=== PATIENT | male | born 1990 | race American Indian/Alaskan Native ===

== ENCOUNTER 2021-02-21 00:25 | Emergency (ER) | payer MEDICAID, SELFPAY ==
--- NOTE | ~2021-02-21 | US_ITS ---
EXAMINATION: US SCROTUM CLINICAL INFORMATION: Pain, swelling. COMPARISON: None TECHNIQUE: A sonogram of the scrotum was performed assessing harley-scale appearance and color Doppler flow. Spectral Doppler analysis of the arterial and venous flow were performed in the testes bilaterally. FINDINGS: Per technologist report, examination performance is limited due to patient agitation. Scrotal skin thickening is noted. RIGHT: Right testicle measures 3.4 x 1.9 x 2.3 cm, volume 7.5 mL. No focal testicular parenchymal lesions are visualized. Spectral Doppler analysis of the arterial and venous flow is normal in the right testis. Right epididymal head is normal in size. There is a 0.5 cm right epididymal head cyst. No right hydrocele or varicocele is seen. Right epididymal Doppler flow is normal. LEFT: Left testicle measures 3.0 x 1.8 x 2.4 cm, volume 6.9 mL. No focal testicular parenchymal lesions are visualized. Spectral Doppler analysis of the arterial and venous flow is normal in the left testis. Left epididymal head is normal in size. No left hydrocele or varicocele is seen. Left epididymal Doppler flow is normal. US/US scrotum doppler IMPRESSION: No testicular abnormality identified. Scrotal skin thickening is noted.
--- NOTE | ~2021-02-21 | US_ITS ---
EXAMINATION: US SCROTUM CLINICAL INFORMATION: Pain, swelling. COMPARISON: None TECHNIQUE: A sonogram of the scrotum was performed assessing harley-scale appearance and color Doppler flow. Spectral Doppler analysis of the arterial and venous flow were performed in the testes bilaterally. FINDINGS: Per technologist report, examination performance is limited due to patient agitation. Scrotal skin thickening is noted. RIGHT: Right testicle measures 3.4 x 1.9 x 2.3 cm, volume 7.5 mL. No focal testicular parenchymal lesions are visualized. Spectral Doppler analysis of the arterial and venous flow is normal in the right testis. Right epididymal head is normal in size. There is a 0.5 cm right epididymal head cyst. No right hydrocele or varicocele is seen. Right epididymal Doppler flow is normal. LEFT: Left testicle measures 3.0 x 1.8 x 2.4 cm, volume 6.9 mL. No focal testicular parenchymal lesions are visualized. Spectral Doppler analysis of the arterial and venous flow is normal in the left testis. Left epididymal head is normal in size. No left hydrocele or varicocele is seen. Left epididymal Doppler flow is normal. US/US scrotum IMPRESSION: No testicular abnormality identified. Scrotal skin thickening is noted.
[2021-02-21 00:42] VITALS: BP 155/97; PULSE 102; RESP 24; TEMP 37.3; O2SAT 99; BMI 27.4
--- NOTE | 2021-02-21 01:28 | ED_ITS ---
HPI - Alcohol General Chief Complaint: ETOH/Substance Use Stated Complaint: Multiple complaints Time Seen by Provider: 02/21/21 01:27 Source: patient Mode of arrival: ambulatory History of Present Illness HPI narrative: Who walked in and admits to the substance use, and reportedly is seeking detox after not obtaining drugs earlier in the day. But then states that he is been up for 4 days. Patient reports severe testicular pain and is c rying, he states that his scrotum started looking at approximately 2 days ago and just continued to worsen. He denies any injection or noting any infected hair follicle prior to the onset of the swelling and pain. Related Data Allergies Allergy/AdvReac Type Severity Reaction Status Date / Time No Known Allergies Allergy Unverified 07/05/20 15:53 [No Known Allergies*] Review of Systems Review of Systems: Pertinent positives and negatives as stated in HPI 10 point review of systems is otherwise negative. PMFSH Past Medical History Source: nursing notes reviewed Medical History Drug abuse Drug abuse and dependence Social History Social History Alcohol intake: unknown Smoking Status: Unknown if ever smoked Use of substances other than those prescribed or required for medical reasons: Yes Substance Use Type: Unknown Substance Use Type Other:: just stating he used tonight Advance Directives: No Advance Directives Information Provided: No Physical Exam Vital Signs: Vital Signs: Last Vital Signs Temp 99.2 F 02/21/21 00:42 Pulse 84 02/21/21 06:00 Resp 16 02/21/21 06:00 BP 124/79 02/21/21 06:00 Pulse Ox 100 02/21/21 06:00 Body Mass Index 27.4 VITAL SIGNS: Reviewed. GENERAL: Well developed, well nourished, in no acute distress. HEAD: Normocephalic/atraumatic EYES: PERRLA, EOMI OROPHARYNX: no oral lesions noted, posterior pharynx clear NECK: Supple, no adenopathy LUNGS: Normal breath sounds. No adventitious sounds or accessory muscle use. SpO2<97> CARDIOVASCULAR: Regular rate and rhythm without noted murmurs ABDOMEN: Soft, non-tender, non-distended with bowel sounds. : Scrotum noted to be swollen with erythema at the ventral aspect and noted weeping with tactile coolness on palpation EXTREMITIES: No cyanosis, clubbing, but there is noted track tan on bilateral upper extremities with a noted swollen left hand without fluctuance appreciated, capillary refill less than 3 seconds and otherwise neurovascularly intact SKIN: Inspection of the skin reveals no rashes NEUROLOGIC: Alert and oriented x 4. PSYCH: Labile mood, tearful Course Course Course Narrative: 30-year-old male with history and clinical presentation consistent with drug dependence and clearly IV drug use with left hand suspicious for infection and unclear what is going on with the scrotum. Patient is very combative, verbally abusive to the nursing staff, and difficult to provide medical attention. However, on obtaining lab work as well as initial vital signs evidence consistent with severe sepsis (however the creatinine, bilirubin levels are chronically stable and it is felt this has nothing to do with suspected underlying infection). Patient is receiving antibiotics, IV fluids, and delay in receiving entire fluids as well as antibiotics secondary to venous access and then later secondary to patient agitation over subsequent evaluations with scrotal Doppler. Review of scrotal ultrasound negative for evidence testicular torsion, hydrocele or varicocele and simply demonstrates scrotal skin thickening. This case was discussed with the inpatient hospitalist team for admission secondary to sepsis and scrotal cellulitis. MDM - Alcohol Lab Data Result diagrams: 02/21/21 03:35 02/21/21 03:35 Labs: Lab Results 02/21/21 02/21/21 02/21/21 Range/Units 03:35 03:35 03:35 WBC 17.8 H (4.8-10.8) X10*3/uL RBC 5.00 (4.60-5.80) X10*6/uL Hgb 13.0 L (14.0-18.0) g/dl Hct 39.2 L (42-52) % MCV 78.4 L (80-98) fL MCH 26.0 L (27.0-33.0) pg MCHC 33.2 (31.0-36.0) g/dl RDW 18.7 H (11.0-16.0) % Plt Count 126 L (160-400) X10*3/uL MPV Not Reportable Immature Gran % (Auto) 1.3 H (0.0-0.4) % Neut % (Auto) 68.3 (45-73) % Lymph % (Auto) 21.6 (20-40) % [place] % (Auto) 8.5 (2-11) % Eos % (Auto) 0.1 (0-4) % Baso % (Auto) 0.2 (0-2) % Lymph # (Auto) 3.9 (1.2-4.9) X10*3/uL [place] # (Auto) 1.5 H (0.1-1.2) X10*3/uL Eos # (Auto) 0.0 (0.0-0.4) X10*3/uL Baso # (Auto) 0.0 (0.0-0.2) X10*3/uL Abs Immat Gran (auto) 0.24 H (0.00-0.03) X10*3/uL Absolute Neuts (auto) 12.2 H (2.0-8.3) X10*3/uL Absolute Nucleated RBC 0.000 (0.0-0.012) X10*3/uL Nucleated RBC % (auto) 0.0 (0.0-0.2) /100WBC Smear Tech's Comments VERIFIED Sodium 131 L (135-145) mmol/L Potassium 4.2 (3.3-5.1) mmol/L Chloride 101 (96-108) mmol/L Carbon Dioxide 18 L (22-29) mmol/L Anion Gap 16 (12-20) BUN 47 H (9-16) mg/dL Creatinine 1.85 H (0.5-1.4) mg/dL Estim Creat Clear Calc 48.6 Estimated GFR 43 Random Glucose 97 (60-115) mg/dL Lactic Acid (0.5-2.0) mmol/L Calcium 9.1 (8.4-10.2) mg/dL Total Bilirubin 4.0 H (0.0-1.0) mg/dL AST 291 H (5-37) U/L ALT 133 H (0-40) U/L Alkaline Phosphatase 207 H (39-117) U/L Total Protein 6.1 L (6.5-8.0) g/dL Albumin 3.2 L (3.5-5.0) g/dL Ethyl Alcohol < 10 mg/dL 02/21/21 Range/Units 04:52 WBC (4.8-10.8) X10*3/uL RBC (4.60-5.80) X10*6/uL Hgb (14.0-18.0) g/dl Hct (42-52) % MCV (80-98) fL MCH (27.0-33.0) pg MCHC (31.0-36.0) g/dl RDW (11.0-16.0) % Plt Count (160-400) X10*3/uL MPV Immature Gran % (Auto) (0.0-0.4) % Neut % (Auto) (45-73) % Lymph % (Auto) (20-40) % [place] % (Auto) (2-11) % Eos % (Auto) (0-4) % Baso % (Auto) (0-2) % Lymph # (Auto) (1.2-4.9) X10*3/uL [place] # (Auto) (0.1-1.2) X10*3/uL Eos # (Auto) (0.0-0.4) X10*3/uL Baso # (Auto) (0.0-0.2) X10*3/uL Abs Immat Gran (auto) (0.00-0.03) X10*3/uL Absolute Neuts (auto) (2.0-8.3) X10*3/uL Absolute Nucleated RBC (0.0-0.012) X10*3/uL Nucleated RBC % (auto) (0.0-0.2) /100WBC Smear Tech's Comments Sodium (135-145) mmol/L Potassium (3.3-5.1) mmol/L Chloride (96-108) mmol/L Carbon Dioxide (22-29) mmol/L Anion Gap (12-20) BUN (9-16) mg/dL Creatinine (0.5-1.4) mg/dL Estim Creat Clear Calc Estimated GFR Random Glucose (60-115) mg/dL Lactic Acid 2.3 H* (0.5-2.0) mmol/L Calcium (8.4-10.2) mg/dL Total Bilirubin (0.0-1.0) mg/dL AST (5-37) U/L ALT (0-40) U/L Alkaline Phosphatase (39-117) U/L Total Protein (6.5-8.0) g/dL Albumin (3.5-5.0) g/dL Ethyl Alcohol mg/dL Discharge Plan Discharge Clinical Impression: Sepsis, Cellulitis, scrotum Patient Disposition: Admitted As Inpatient
[2021-02-21 02:00] VITALS: PULSE 91; RESP 12
--- NOTE | 2021-02-21 02:40 | PC.NURSE ---
provider remains in agreement to defer labs until patient is in behavioral control for provider safety.
--- NOTE | 2021-02-21 03:41 | PC.NURSE ---
able to obtain blood work from patient with assistance from wilton thompson. patient placed on capnography. patient is alert but under the influence of drug. patient stating he used tonight, will not disclose what he used. yelling out, rocking on the stretcher. awaiting lab results.
[2021-02-21 03:44] LABS: Basophils Percent Auto 0.2 % (0-2); Eosinophils Percent Auto 0.1 % (0-4); Hematocrit 39.2 % (42-52); Imm Gran Abs Auto 0.24 X10*3/uL (0.00-0.03); Imm Gran Pct Auto 1.3 % (0.0-0.4); Lymphocytes Absolute Auto 3.9 X10*3/uL (1.2-4.9); Lymphocytes Percent Auto 21.6 % (20-40); MANUAL DIFF FLAG SCAN; Mean Corpuscular HGB Conc 33.2 g/dl (31.0-36.0); Mean Corpuscular Volume 78.4 fL (80-98); Monocytes Absolute Auto 1.5 X10*3/uL (0.1-1.2); Monocytes Percent Auto 8.5 % (2-11); Neutrophils Absolute Auto 12.2 X10*3/uL (2.0-8.3); Neutrophils Percent Auto 68.3 % (45-73); PLT ABN DIST 1; Platelet Count 126 X10*3/uL (160-400); Red Cell Distribution Width 18.7 % (11.0-16.0); SCAN SMEAR FLAG 1; White Blood Count 17.8 X10*3/uL (4.8-10.8)
[2021-02-21 03:47] LABS: SLIDE REVIEW VERIFIED
[2021-02-21 03:58] LABS: Ethanol < 10 mg/dL
[2021-02-21 04:02] LABS: Alanine Aminotransferase 133 U/L (0-40); Albumin Level 3.2 g/dL (3.5-5.0); Alkaline Phosphatase 207 U/L (39-117); Anion Gap 16 (12-20); Aspartate Amino Transferase 291 U/L (5-37); Blood Urea Nitrogen 47 mg/dL (9-16); Calcium 9.1 mg/dL (8.4-10.2); Carbon Dioxide 18 mmol/L (22-29); Chloride 101 mmol/L (96-108); Creatinine Clr Calc Pharmacy 48.6; Estimated Glomerular Filt Rate 43; Glucose Random 97 mg/dL (60-115); Potassium 4.2 mmol/L (3.3-5.1); Sodium 131 mmol/L (135-145); Total Protein 6.1 g/dL (6.5-8.0)
[2021-02-21 04:56] VITALS: BP 123/81; PULSE 96; RESP 18; O2SAT 97
--- NOTE | 2021-02-21 05:12 | PC.NURSE ---
after multiple attempts for iv access with md attempting ultrasound guided. access was obtained. labs were able to be obtained after iv access. labs sent. awaiting results. patient continues to yell out and roll around on the stretcher. plan for antibotics and iv fluids.
[2021-02-21 05:20] LABS: Lactic Acid 2.3 mmol/L (0.5-2.0)
[2021-02-21] MEDS: 0.9 % Sodium Chloride 2,041.17 ML 2041.17 ML IVCONT (05:25)
[2021-02-21] MEDS: Piperacillin Sodium/Tazobactam 3.375 GM in 0.9 % Sodium Chloride 50 ML IV (05:25)
--- NOTE | 2021-02-21 05:36 | PC.NURSE ---
SEPSIS FLUIDS RUNNING. PATIENT FALLING ASLEEP, ANTIBIOTIC RUNNING. BREATHING IS EVEN AND UNLABORED SKIN IS P,D,W. PLAN FOR POSSIBLE ADMISSION IF PATIENT IS AGREEABLE TO PLAN OF CARE. VITALS REMAIN STABLE. PATIENT HAS BEEN UNWILLING TO GIVE TEMPERATURE. WAS PREVIOUS SPITTING AT STAFF TRYING TO HIT THEM DURING LAB AND IV ATTEMPTS. SECURITY WAS AT BEDSIDE TO ASSIST DUE TO PATIENTS BEHAVIORS. PATIENT HAS SINCE SETTLED DOWN AND IS CURRENTLY AGREEABLE TO SOME CARE.
--- NOTE | 2021-02-21 05:44 | PC.NURSE ---
PROVIDER AND THIS NURSE AT BEDSIDE ABLE TO BETTER EVALUATE PATIENT AFTER HE HAS CALMED DOWN SOME. PATIENT ALLOWING MD TO EVALUATE TESTICLES. PATIENT HAVING VERY SWOLLEN GENITAL REGION, COLD TO THE TOUCH, AND OOZING SEROUS FLUID FROM TESTICLES. CONCERN FOR TORSION AND NECROSIS OF THE TESTICLES.
[2021-02-21] MEDS: HYDROmorphone HCl 0.5 MG/0.5 ML SYRINGE IVPUSH (05:56)
[2021-02-21 06:00] VITALS: BP 124/79; PULSE 84; RESP 16; O2SAT 100
--- NOTE | 2021-02-21 06:09 | PC.NURSE ---
SECUIRTY AND ULTRASOUND AT BEDSIDE FOR IMAGING
[2021-02-21 07:00] LABS: Reflex Lactate? Lactic Acid Added
[2021-02-21 07:45] LABS: Glucose Urine UA NEG (NEG); Leukocyte Esterase Urine NEG (NEG); Nitrite Urine NEG (NEG); Specific Gravity - Urine 1.025 (1.005-1.025); Urine Blood 2+ (NEG); Urine Ketones NEG (NEG); Urine Protein TRACE MG/DL (NEG-TRACE)
[2021-02-21 07:47] LABS: Appearance Urine CLEAR; Color Urine YELLOW
[2021-02-21 08:05] LABS: Amphetamine Screen Urine Not Detected (Not Detect); Barbiturates, Urine Not Detected (Not Detect); Benzodiazepines Screen Urine Not Detected (Not Detect); Cannabinoid Screen Urine POSITIVE (Not Detect); Cocaine Screen Urine POSITIVE (Not Detect); Opiate Screen Urine POSITIVE (Not Detect); Phencyclidine Screen Urine Not Detected (Not Detect)
[2021-02-21 08:09] LABS: WBC Urine 0-2 /HPF (0-4)
[2021-02-21] MEDS: vancomycin HCL 1,250 MG in 0.9 % Sodium Chloride 250 ML 166.67 MG IV (08:43)
--- NOTE | 2021-02-21 09:28 | PC.NURSE ---
[facility]abke to draw lactate, phlembotomy called. they were unable to obtain it as well.
--- NOTE | 2021-02-21 10:02 | PC.NURSE ---
patient very combatitive. not able to re-direct. states that he will not have cat scan and wants to leave now.
--- NOTE | 2021-02-21 10:02 | PC.NURSE ---
several staff and security at bedside. this nurse in a calm manner attemptes to educate patient on importance of medication, and that the patient needs these meds. patient swearing at this nurse and staff.
--- NOTE | 2021-02-21 10:03 | PC.NURSE ---
this nurse attempted to calm patient down, let him know that after the cat scan was the last imaging we needed for now. patient yelling and swearing at this nurse and staff. unable to re-direct patient.
== END 2021-02-21 10:04 | disposition left against medical advice (07) ==
PROVIDERS: Emergency Provider Student in an Organized Health Care Education/Training Program
DX: N49.2 Inflammatory disorders of scrotum (principal); A41.9 Sepsis, unspecified organism; N50.812 Left testicular pain; N50.811 Right testicular pain; F19.10 Other psychoactive substance abuse, uncomplicated
CPT/HCPCS: 36415; 76870; 80053; 80307; 80320; 81001; 83605; 85025; 87040; 93975; 96361; 96365; 96375; 99285; J1170; J2543; J3370

== ENCOUNTER 2021-04-15 11:43 | Inpatient (IN) | payer MEDICAID, SELFPAY ==
--- NOTE | ~2021-04-15 | US_ITS ---
EXAMINATION: US SCROTUM CLINICAL INFORMATION: Scrotal swelling. Evaluate for torsion or infection. COMPARISON: Previous scrotal ultrasound 02/21/2021 TECHNIQUE: A sonogram of the scrotum was performed assessing harley-scale appearance and color Doppler flow. Spectral Doppler analysis of the arterial and venous flow were performed in the testes bilaterally. FINDINGS: RIGHT: Right testicle measures 3.5 x 2.9 x 2.2 cm, volume 11.7 mL. No focal testicular parenchymal lesions are visualized. Spectral Doppler analysis of the arterial and venous flow is normal in the right testis. Right epididymal head is normal in size. There is a 7 mm right epididymal head cyst. No right hydrocele or varicocele is seen. Right epididymal Doppler flow is normal. There is marked scrotal swelling LEFT: Left testicle measures 3.2 x 2.4 x 2.1 cm, volume 8.4 mL. No focal testicular parenchymal lesions are visualized. Spectral Doppler analysis of the arterial and venous flow is normal in the left testis. Left epididymal head is normal in size. No left hydrocele or varicocele is seen. Left epididymal Doppler flow is normal. There is marked scrotal swelling. US/US scrotum IMPRESSION: No evidence of torsion, orchitis or epididymitis. No hydrocele. There is marked scrotal skin swelling suggestive of severe cellulitis. This is unchanged from February 2021 exam.
--- NOTE | ~2021-04-15 | US_ITS ---
EXAMINATION: US ABDOMEN LIMITED/RIGHT UPPER QUADRANT and Doppler CLINICAL INFORMATION: Rule out Budd-Chiari. COMPARISON: Previous CT of the abdomen and pelvis from yesterday and limited abdominal ultrasound May 2020 TECHNIQUE: Real-time grayscale imaging of the right upper quadrant. Color Doppler evaluation of the liver vasculature including waveform spectral analysis. FINDINGS: PANCREAS: Not well visualized due to bowel gas LIVER: The liver is enlarged. The liver contour is normal. Parenchymal echogenicity is normal. No focal hepatic lesion. There is no intrahepatic biliary duct dilatation seen. GALLBLADDER: There is ring down artifact suggestive of adenomyomatosis of the gallbladder wall. No gallstones are seen. The gallbladder is normal in size. COMMON BILE DUCT: Normal in caliber measuring 0.3 cm in diameter. RIGHT KIDNEY: There is increased renal cortical echogenicity. The kidney is normal in size, shape and contour. No focal lesion, stone or hydronephrosis. The right kidney measures 11.2 cm. The spleen is enlarged and measures 14.3 cm in length. There is a small amount of ascites. The IVC is patent. The hepatic veins are patent. No evidence of Budd-Chiari is seen. The main, right left portal veins are patent with appropriate hepatopedal flow. The splenic vein is patent. US/US abdomen complete IMPRESSION: No evidence of Budd-Chiari. Enlarged liver. Probable adenomyomatosis of the gallbladder wall. Small amount of ascites. Enlarged spleen. Echogenic right kidney suggestive of medical renal disease. Limited visualization of the pancreas.
--- NOTE | ~2021-04-15 | CT_ITS ---
EXAMINATION: CT ABDOMEN AND PELVIS WITH CONTRAST CLINICAL INFORMATION: Scrotal swelling and edema. Evaluate for venous obstruction. COMPARISON: None TECHNIQUE: Multidetector volumetric images were obtained from the superior aspect of the liver through the pubic symphysis following administration 85 mL of Omnipaque 350 intravenous contrast. Sagittal and coronal reformatted images were obtained on the technologist's workstation. Oral contrast: Yes This CT examination was performed using dose optimization techniques as appropriate, variously including the following: *Automated exposure control *Adjustment of mA and/or kV according to patient size (this includes techniques or standardized protocols for targeted exams where dose is matched to indication/reason for exam; i.e. extremities or head) *Use of iterative reconstruction technique DLP: 544 mGy-cm FINDINGS: LUNG BASES: There are small bilateral pleural effusions. There is bilateral lower lobe subsegmental atelectasis. The heart is enlarged. There may be a prosthetic tricuspid valve. LIVER, GALLBLADDER, AND BILIARY TREE: The liver is enlarged. There is heterogeneous enhancement of the liver. The suprahepatic IVC appears prominent. It is uncertain whether heterogeneous enhancement of the liver could be due to elevated right heart pressures possibly of Budd-Chiari. The gallbladder is contracted. There is no biliary duct dilatation. There is a small amount of ascites adjacent to the liver and gallbladder. PANCREAS: Unremarkable. SPLEEN: Unremarkable. ADRENAL GLANDS: Unremarkable. KIDNEYS AND URETERS: The kidneys are normal in size, shape, and attenuation. No hydronephrosis, hydroureter, or calculi seen. No perinephric stranding. BLADDER: Unremarkable. GASTROINTESTINAL TRACT: The small and large bowel are unremarkable. The appendix has probably been removed. ABDOMINAL WALL: Fall LYMPH NODES: There is shotty bilateral inguinal lymphadenopathy. VASCULAR: The suprahepatic IVC is prominent. Vascular structures are otherwise unremarkable. The IVC and iliac veins appear patent. No evidence of venous obstruction in the pelvis is seen. PELVIC VISCERA: The prostate gland does not appear enlarged. There is a small amount of ascites in the pelvis. There is diffuse edema of the soft tissues of the pelvis. OSSEOUS STRUCTURES: Unremarkable. CT/CT abdomen pelvis w con IMPRESSION: No evidence of venous obstruction the pelvis. Enlarged heart. Enlarged liver with heterogeneous enhancement. Prominent suprahepatic IVC. Possible right heart compromise and heterogeneous liver perfusion related to that or Budd-Chiari should be considered. Small amount of ascites around the liver, gallbladder and pelvis. Diffuse subcutaneous edema in the pelvis. Shotty bilateral inguinal lymphadenopathy.
--- NOTE | ~2021-04-15 | US_ITS ---
EXAMINATION: US SCROTUM CLINICAL INFORMATION: Scrotal swelling. Evaluate for torsion or infection. COMPARISON: Previous scrotal ultrasound 02/21/2021 TECHNIQUE: A sonogram of the scrotum was performed assessing harley-scale appearance and color Doppler flow. Spectral Doppler analysis of the arterial and venous flow were performed in the testes bilaterally. FINDINGS: RIGHT: Right testicle measures 3.5 x 2.9 x 2.2 cm, volume 11.7 mL. No focal testicular parenchymal lesions are visualized. Spectral Doppler analysis of the arterial and venous flow is normal in the right testis. Right epididymal head is normal in size. There is a 7 mm right epididymal head cyst. No right hydrocele or varicocele is seen. Right epididymal Doppler flow is normal. There is marked scrotal swelling LEFT: Left testicle measures 3.2 x 2.4 x 2.1 cm, volume 8.4 mL. No focal testicular parenchymal lesions are visualized. Spectral Doppler analysis of the arterial and venous flow is normal in the left testis. Left epididymal head is normal in size. No left hydrocele or varicocele is seen. Left epididymal Doppler flow is normal. There is marked scrotal swelling. US/US scrotum doppler IMPRESSION: No evidence of torsion, orchitis or epididymitis. No hydrocele. There is marked scrotal skin swelling suggestive of severe cellulitis. This is unchanged from February 2021 exam.
[2021-04-15 11:46] VITALS: BP 128/83
[2021-04-15 11:48] VITALS: BP 125/73; PULSE 104; RESP 16; TEMP 36.7; O2SAT 97; BMI 23.3
--- NOTE | 2021-04-15 12:39 | ED_ITS ---
HPI - Male Genitourinary General Chief complaint: Urogenital-Male Stated complaint: SCOTAL SWELLING,UNK IF INJURED Time Seen by Provider: 04/15/21 12:28 Source: patient Mode of arrival: ambulatory Limitations: no limitations History of Present Illness HPI Narrative: Patient presents to ED for bilateral scrotal swelling and penile swelling for 2 days. Patient denies any injury to scrotum, penile discharge, penile lesions, abdominal pain, fever, or chills. He denies injecting drugs to scrotum. Patient was seen here last month for similar issue was done with scrotal cellulitis, but signed against medical advice. Patient admits to being an IV drug user. Related Data Home Medications Medication Instructions Recorded Confirmed rivaroxaban [Xarelto] 1 tab PO QPM 04/15/21 04/15/21 Allergies Allergy/AdvReac Type Severity Reaction Status Date / Time No Known Allergies Allergy Unverified 07/05/20 15:53 [No Known Allergies*] Review of Systems Review of Systems: Yes all other systems are reviewed and are negative Constitutional: Constitutional: Reports as per HPI and Reports no additional constitutional complaints Eyes: Eyes: Reports as per HPI and Reports no additional eye complaints ENT: Reports system reviewed and no additional complaints, except as documented and Reports as per HPI Cardiovascular: Cardiovascular: Reports as per HPI and Reports no additional cardiovascular complaints Respiratory: Respiratory: Reports as per HPI and Reports no additional respiratory complaints Gastrointestinal: Gastrointestinal: Reports as per HPI and Reports no additional gastrointestinal complaints Genitourinary: Genitourinary: Reports no additional male genitourinary complaints, Reports as per HPI and Reports scrotal swelling Comments: penile swelling Musculoskeletal: Musculoskeletal: Reports no additional musculoskeletal complaints and Reports as per HPI Neurologic: Reports system reviewed and no additional complaints, except as documented and Reports as per HPI Psychiatric: Psychiatric: Reports no additional psychiatric complaints and Reports as per HPI [facility] Past Medical History Medical History Drug abuse Drug abuse and dependence Endocarditis HCV (hepatitis C virus) Pulmonary embolism Surgical History History of tricuspid valve replacement with bioprosthetic valve Social History Social History Alcohol intake: unknown Substance Use Type: Unknown Advance Directives: No Advance Directives Information Provided: No service: No Current occupational status: unemployed Physical Exam Vital Signs: Vital Signs: Last Vital Signs Temp 97.8 F 04/15/21 20:05 Pulse 86 04/15/21 20:05 Resp 18 04/15/21 20:05 BP 106/70 04/15/21 20:05 Pulse Ox 98 04/15/21 20:05 Body Mass Index 23.3 Const: General: cooperative, healthy appearing, comfortable, no acute distress, well developed, alert, awake and Physically active Orientation/consciousness: patient oriented x3 HENMT: Head: Yes normal to inspection, Yes No palpable skull fracture present, Yes normocephalic and Yes atraumatic Eyes: General: appearance normal, both eyes and all related structures Neck: Neck: Yes normal visual inspection, Yes full ROM, Yes no lymp hadenopathy, Yes no meningeal signs, Yes trachea midline, Yes supple and No tender Chest: Chest palpation & inspection: normal inspection of the chest and normal palpation of entire chest wall Resp: Effort & Inspection: normal respiratory effort and able to speak in complete sentences Auscultation: clear to auscultation bilaterally Cardio: Jugular venous distension: no JVD Heart sounds: S1 normal heart sound present and S2 normal heart sound present GI: Inspection: Yes normal to inspection and No abdominal wall ecchymosis Palpation (GI): Soft to palpation, not firm, nontender, no guarding and not rigid : Other: negative for penile discharge or penile on lesions. Penis is swollen as well scrotum bilaterally and warm.. General: No CVA tenderness and Yes no CVA tenderness Penis: edematous Scrotum: edematous and scrotal swelling Back/Spine/Pelvis: Back: no CVA tenderness, No CVA tenderness and No back tenderness Skin: General skin exam: no rashes or lesions noted and elasticity normal Neuro: General: patient oriented x3, gait normal, no meningeal signs and CN's II-XI intact bilaterally Cranial nerves: Yes CN's II-XII intact bilaterally Extrem: General: Yes normal to inspection and Yes full ROM Psych: Appearance: grossly normal, well kempt and not disheveled Course Course Course Narrative: Will do labs to check for liver enzyme and kidney function. Also signed for scrotal ultrasound. CBC ordered Reevaluation(s) Reevaluation #1: patient has mild elevated white blood cell count. Ultrasound shows cellulitis but negative for abscess, hernia, orchitis, or epididymitis. Will start IV antibiotics possible admission. Time: 15:11 Reevaluation #2: patient evaluated by Dr. Snowden the hospitalist for admission. Time: 15:45 MDM - Male Genitourinary MDM Narrative Medical decision making narrative: scrotal cellulitis Lab Data Result diagrams: 04/15/21 13:10 04/15/21 13:10 Labs: Lab Results 04/15/21 04/15/21 04/15/21 Range/Units 13:10 13:10 15:55 WBC 8.7 (4.8-10.8) X10*3/uL RBC 4.53 L (4.60-5.80) X10*6/uL Hgb 11.1 L (14.0-18.0) g/dl Hct 36.2 L (42-52) % MCV 79.9 L (80-98) fL MCH 24.5 L (27.0-33.0) pg MCHC 30.7 L (31.0-36.0) g/dl RDW 19.0 H (11.0-16.0) % Plt Count 213 D (160-400) X10*3/uL MPV 9.9 (9.4-12.4) fL Immature Gran % (Auto) 0.8 H (0.0-0.4) % Neut % (Auto) 58.5 (45-73) % Lymph % (Auto) 27.9 (20-40) % [place] % (Auto) 10.1 (2-11) % Eos % (Auto) 2.2 (0-4) % Baso % (Auto) 0.5 (0-2) % Lymph # (Auto) 2.4 (1.2-4.9) X10*3/uL [place] # (Auto) 0.9 (0.1-1.2) X10*3/uL Eos # (Auto) 0.2 (0.0-0.4) X10*3/uL Baso # (Auto) 0.0 (0.0-0.2) X10*3/uL Abs Immat Gran (auto) 0.07 H (0.00-0.03) X10*3/uL Absolute Neuts (auto) 5.1 (2.0-8.3) X10*3/uL Absolute Nucleated RBC 0.000 (0.0-0.012) X10*3/uL Nucleated RBC % (auto) 0.0 (0.0-0.2) /100WBC Sodium 140 (135-145) mmol/L Potassium 3.7 (3.3-5.1) mmol/L Chloride 109 H (96-108) mmol/L Carbon Dioxide 25 (22-29) mmol/L Anion Gap 10 L (12-20) BUN 9 D (9-16) mg/dL Creatinine 0.76 (0.5-1.4) mg/dL Estim Creat Clear Calc 125.9 Estimated GFR > 60 Random Glucose 122 H (60-115) mg/dL Lactic Acid 1.1 (0.5-2.0) mmol/L Calcium 8.6 (8.4-10.2) mg/dL Total Bilirubin 0.8 (0.0-1.0) mg/dL Direct Bilirubin 0.7 H (0.0-0.5) mg/dL AST 27 D (5-37) U/L ALT 17 (0-40) U/L Alkaline Phosphatase 165 H D (39-117) U/L Total Protein 6.0 L (6.5-8.0) g/dL Albumin 2.9 L (3.5-5.0) g/dL Urine Color Urine Appearance Urine pH (5.0-8.0) Ur Specific [place] (1.005-1.025) Urine Protein (NEG-TRACE) MG/DL Urine Glucose (UA) (NEG) MG/DL Urine Ketones (NEG) MG/DL Urine Blood (NEG) Urine Nitrite (NEG) Ur Leukocyte Esterase (NEG) Urine RBC (0) /HPF Urine WBC (0-4) /HPF Ur Squamous Epith Cells /LPF Urine Bacteria /LPF Urine Opiates Screen (Not Detect) Ur Barbiturates Screen (Not Detect) Ur Phencyclidine Scrn (Not Detect) Ur Amphetamines Screen (Not Detect) U Benzodiazepines Scrn (Not Detect) Urine Cocaine Screen (Not Detect) U Marijuana (THC) Screen (Not Detect) COVID-19 ([facility]) (Negative) COVID-19 Clin Com 04/15/21 04/15/2104/15/21 Range/Units 16:22 16:55 16:55 WBC (4.8-10.8) X10*3/uL RBC (4.60-5.80) X10*6/uL Hgb (14.0-18.0) g/dl Hct (42-52) % MCV (80-98) fL MCH (27.0-33.0) pg MCHC (31.0-36.0) g/dl RDW (11.0-16.0) % Plt Count (160-400) X10*3/uL MPV (9.4-12.4) fL Immature Gran % (Auto) (0.0-0.4) % Neut % (Auto) (45-73) % Lymph % (Auto) (20-40) % [place] % (Auto) (2-11) % Eos % (Auto) (0-4) % Baso % (Auto) (0-2) % Lymph # (Auto) (1.2-4.9) X10*3/uL [place] # (Auto) (0.1-1.2) X10*3/uL Eos # (Auto) (0.0-0.4) X10*3/uL Baso # (Auto) (0.0-0.2) X10*3/uL Abs Immat Gran (auto) (0.00-0.03) X10*3/uL Absolute Neuts (auto) (2.0-8.3) X10*3/uL Absolute Nucleated RBC (0.0-0.012) X10*3/uL Nucleated RBC % (auto) (0.0-0.2) /100WBC Sodium (135-145) mmol/L Potassium (3.3-5.1) mmol/L Chloride (96-108) mmol/L Carbon Dioxide (22-29) mmol/L Anion Gap (12-20) BUN (9-16) mg/dL Creatinine (0.5-1.4) mg/dL Estim Creat Clear Calc Estimated GFR Random Glucose (60-115) mg/dL Lactic Acid (0.5-2.0) mmol/L Calcium (8.4-10.2) mg/dL Total Bilirubin (0.0-1.0) mg/dL Direct Bilirubin (0.0-0.5) mg/dL AST (5-37) U/L ALT (0-40) U/L Alkaline Phosphatase (39-117) U/L Total Protein (6.5-8.0) g/dL Albumin (3.5-5.0) g/dL Urine Color YELLOW Urine Appearance CLEAR Urine pH 7.5 (5.0-8.0) Ur Specific [place] 1.010 (1.005-1.025) Urine Protein TRACE (NEG-TRACE) MG/DL Urine Glucose (UA) NEG (NEG) MG/DL Urine Ketones NEG (NEG) MG/DL Urine Blood TRACE (NEG) Urine Nitrite NEG (NEG) Ur Leukocyte Esterase NEG (NEG) Urine RBC 10-14 H (0) /HPF Urine WBC 0 (0-4) /HPF Ur Squamous Epith Cells NONE /LPF Urine Bacteria NONE /LPF Urine Opiates Screen POSITIVE H (Not Detect) Ur Barbiturates Screen Not Detected (Not Detect) Ur Phencyclidine Scrn Not Detected (Not Detect) Ur Amphetamines Screen Not Detected (Not Detect) U Benzodiazepines Scrn Not Detected (Not Detect) Urine Cocaine Screen POSITIVE H (Not Detect) U Marijuana (THC) Screen POSITIVE H (Not Detect) COVID-19 ([facility]) Negative (Negative) COVID-19 Clin Com See Note Discharge Plan Discharge Clinical Impression: Cellulitis, scrotum Patient Disposition: Admitted As Inpatient Interventions: Admission Worksheet (ED) Last Done: 04/15/21 19:49 Discharge Date/Time: 04/15/21 19:50
[2021-04-15 13:18] LABS: MANUAL DIFF FLAG NO
--- NOTE | 2021-04-15 13:19 | PC.NURSE ---
IV inserted and labs obtained.
[2021-04-15 13:21] LABS: Basophils Percent Auto 0.5 % (0-2); Eosinophils Absolute Auto 0.2 X10*3/uL (0.0-0.4); Eosinophils Percent Auto 2.2 % (0-4); Hematocrit 36.2 % (42-52); Hemoglobin 11.1 g/dl (14.0-18.0); Imm Gran Abs Auto 0.07 X10*3/uL (0.00-0.03); Imm Gran Pct Auto 0.8 % (0.0-0.4); Lymphocytes Absolute Auto 2.4 X10*3/uL (1.2-4.9); Lymphocytes Percent Auto 27.9 % (20-40); Mean Corpuscular HGB Conc 30.7 g/dl (31.0-36.0); Mean Corpuscular Hemoglobin 24.5 pg (27.0-33.0); Mean Corpuscular Volume 79.9 fL (80-98); Mean Platelet Volume 9.9 fL (9.4-12.4); Monocytes Absolute Auto 0.9 X10*3/uL (0.1-1.2); Monocytes Percent Auto 10.1 % (2-11); Neutrophils Absolute Auto 5.1 X10*3/uL (2.0-8.3); Neutrophils Percent Auto 58.5 % (45-73); Platelet Count 213 X10*3/uL (160-400); Red Blood Count 4.53 X10*6/uL (4.60-5.80); White Blood Count 8.7 X10*3/uL (4.8-10.8)
[2021-04-15 13:54] LABS: Alanine Aminotransferase 17 U/L (0-40); Albumin Level 2.9 g/dL (3.5-5.0); Alkaline Phosphatase 165 U/L (39-117); Anion Gap 10 (12-20); Aspartate Amino Transferase 27 U/L (5-37); Bilirubin Direct 0.7 mg/dL (0.0-0.5); Bilirubin Total 0.8 mg/dL (0.0-1.0); Blood Urea Nitrogen 9 mg/dL (9-16); Calcium 8.6 mg/dL (8.4-10.2); Carbon Dioxide 25 mmol/L (22-29); Chloride 109 mmol/L (96-108); Creatinine Clr Calc Pharmacy 125.9; Estimated Glomerular Filt Rate > 60; Glucose Random 122 mg/dL (60-115); Potassium 3.7 mmol/L (3.3-5.1); Sodium 140 mmol/L (135-145)
[2021-04-15 15:22] VITALS: BP 102/68; PULSE 98; RESP 14; O2SAT 96
[2021-04-15] MEDS: Piperacillin Sodium/Tazobactam 3.375 GM in 0.9 % Sodium Chloride 50 ML IV ×2 (16:28→21:40)
[2021-04-15 16:35] LABS: Lactic Acid 1.1 mmol/L (0.5-2.0)
[2021-04-15 16:45] LABS: COVID-19 Test Negative (Negative); IDNOW Serial# 9DD0AD1C
--- NOTE | 2021-04-15 16:57 | PM.IMHP ---
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 patient had scrotal cellulitis in early February 2021. he was treated at [facility], it is unclear if he picked up his antibiotics. at that time he was also diagnosed with PE. he has been off his xarelto for atleast 2 weeks. in the interim patient states his scrotal swelling had resolved. now complaining of 2 days severe swelling and pain, denies fever, chills, sob, chest pain. in ED Us showed severe cellulitis, no signs of sepsis. Review of Systems Review of Systems: Constitutional: Denies fever, denies Chills Eyes: denies blurry vision ENT: denies sore throat CVS: denies chest pain Respiratory: Denies dyspnea GI: no abdominal pain : see hpi MSK: denies neck pain Skin: denies rash Neuro: denies specific motor weakness Psych: denies suicidal ideation Endocrine: denies heat/cold intoleratnce Hematologic: denies easy bleeding Allergy: denies hives [facility] Medical History Drug abuse Drug abuse and dependence Endocarditis HCV (hepatitis C virus) Pulmonary embolism Functional capacity: independent ambulation Family history: reviewed and not pertinent Surgical History History of tricuspid valve replacement with bioprosthetic valve Social History Alcohol intake: unknown Substance Use Type: Unknown Advance Directives: No Advance Directives Information Provided: No Meds Allergies Allergy/AdvReac Type Severity Reaction Status Date / Time No Known Allergies Allergy Unverified 07/05/20 15:53 [No Known Allergies*] Active Medications: Current Medications Generic Name Dose Route Start Last Admin Trade Name Freq PRN Reason Stop Dose Admin Pharmacy Consult 1 each 04/15/21 16:17 Consult Rx Perform Med Rec MISCELLANE ONCE PRN Consult order Home Medications Medication Instructions Recorded Confirmed Last Taken Type rivaroxaban [Xarelto] 1 tab PO QPM 04/15/21 04/15/21 Unknown History Physical Exam Vital Signs and Narrative: Vital Signs: Last Vital Signs Temp 98.0 F 04/15/21 11:48 Pulse 98 04/15/21 15:22 Resp 14 04/15/21 15:22 BP 102/68 04/15/21 15:22 Pulse Ox 96 04/15/21 15:22 Body Mass Index 23.3 General: lethargic, ill appearing HEENT: atraumatic Neck: normal to visual inspection CVS: S1, S2, RRR Resp: CTA bilateral Chest: non tender GI: soft, non tender, non distended : scrotal swelling, tender Skin: no rashes Extremities: 2+ edema Neuro: Oriented X3, grossly intact Psych: cooperative Results Labs CBC and Chem 7: 04/15/21 13:10 04/15/21 13:10 Labs: Laboratory Results - last 24 hr 04/15/21 04/15/21 04/15/21 13:10 13:10 15:55 MCV 79.9 L MCH 24.5 L MCHC 30.7 L RDW 19.0 H Plt Count 213 D MPV 9.9 Immature Gran % (Auto) 0.8 H Neut % (Auto) 58.5 Lymph % (Auto) 27.9 [place] % (Auto) 10.1 Eos % (Auto) 2.2 Baso % (Auto) 0.5 Lymph # (Auto) 2.4 [place] # (Auto) 0.9 Eos # (Auto) 0.2 Baso # (Auto) 0.0 Abs Immat Gran (auto) 0.07 H Absolute Neuts (auto) 5.1 Absolute Nucleated RBC 0.000 Nucleated RBC % (auto) 0.0 Anion Gap 10 L Estim Creat Clear Calc 125.9 Estimated GFR > 60 Random Glucose 122 H Lactic Acid 1.1 Calcium 8.6 Total Bilirubin 0.8 Direct Bilirubin 0.7 H AST 27 D ALT 17 Alkaline Phosphatase 165 H D Total Protein 6.0 L Albumin 2.9 L COVID-19 ([facility]) COVID-19 Clin Com 04/15/21 16:22 MCV MCH MCHC RDW Plt Count MPV Immature Gran % (Auto) Neut % (Auto) Lymph % (Auto) [place] % (Auto) Eos % (Auto) Baso % (Auto) Lymph # (Auto) [place] # (Auto) Eos # (Auto) Baso # (Auto) Abs Immat Gran (auto) Absolute Neuts (auto) Absolute Nucleated RBC Nucleated RBC % (auto) Anion Gap Estim Creat Clear Calc Estimated GFR Random Glucose Lactic Acid Calcium Total Bilirubin Direct Bilirubin AST ALT Alkaline Phosphatase Total Protein Albumin COVID-19 ([facility]) Negative COVID-19 Clin Com See Note Imaging Radiologist's Impressions: Impressions Scrotum Ultrasound 04/15/21 12:39 IMPRESSION: No evidence of torsion, orchitis or epididymitis. No hydrocele. There is marked scrotal skin swelling suggestive of severe cellulitis. This is unchanged from February 2021 exam. Scrotum Ultrasound 04/15/21 12:39 IMPRESSION: No evidence of torsion, orchitis or epididymitis. No hydrocele. There is marked scrotal skin swelling suggestive of severe cellulitis. This is unchanged from February 2021 exam. Assessment and Plan (1) Cellulitis, scrotum: Status: Acute 30M presented with scrotal swelling scrotal cellulitis vanc, zosyn eval cultures ? thrombus, check CT A/P recent PE therapeutic lovenox HCV outpatient follow up polysubstance abuse addiction eval Quality Stroke Does the patient have a stroke diagnosis?: No VTE Prior VTE?: Yes VTE Risk Level:: Medical - moderate - high VTE Device Contraindication: Treatment Not Indicated VTE Drug Contraindication: N/A - Med Ordered
--- NOTE | 2021-04-15 17:00 | PHA.MEDREC ---
Pharmacy Consult ? Medication Reconciliation Pharmacy has completed the medication reconciliation. Patient has not taken his Xarelto in about 2 weeks. He said he does not take apsirin 81 mg EC or mirtazapine. He said he does not take gabapentin because it got chanell [facility]
[2021-04-15] MEDS: vancomycin HCL 750 MG in 0.9 % Sodium Chloride 250 ML 265 MG IV (17:04)
[2021-04-15] MEDS: Ketorolac Tromethamine 30 MG/ML VIAL IVPUSH (17:04)
[2021-04-15 17:14] LABS: Appearance Urine CLEAR; Color Urine YELLOW; Glucose Urine UA NEG (NEG); Leukocyte Esterase Urine NEG (NEG); Nitrite Urine NEG (NEG); PH 7.5 (5.0-8.0); Urine Blood TRACE (NEG); Urine Ketones NEG (NEG); Urine Protein TRACE MG/DL (NEG-TRACE)
[2021-04-15 17:43] LABS: Amphetamine Screen Urine Not Detected (Not Detect); Barbiturates, Urine Not Detected (Not Detect); Benzodiazepines Screen Urine Not Detected (Not Detect); Cannabinoid Screen Urine POSITIVE (Not Detect); Cocaine Screen Urine POSITIVE (Not Detect); Opiate Screen Urine POSITIVE (Not Detect); Phencyclidine Screen Urine Not Detected (Not Detect)
[2021-04-15 17:48] LABS: WBC Urine 0 /HPF (0-4)
[2021-04-15 18:00] VITALS: BP 106/73; PULSE 85; RESP 16; TEMP 36.8; O2SAT 96
--- NOTE | 2021-04-15 18:00 | MHC.RECOVSUP ---
Recovery Support note: Patient is a 30 year old Maltese speaking male who presented to [facility] ED due to an infection. This investigative writer met with patient to discuss his substance use and treatment options. Patient reports using heroin daily and states that he was previously receiving methadone through [facility] in [place]. Patient reports he has not been in a week and he is concerned that he will not be able to return. Patient expressed concern that he will begin to experience withdrawal. This investigative writer educated patient on opioid withdrawal and explained that the pain medication provided will prevent withdrawal. This investigative writer encouraged patient to inform staff if he begins to experience withdrawal. Patient expressed frustration regarding not getting his dinner tray and not getting pain medication earlier. Patient was provided with his meal and reassured that we want to help him stay comfortable and that it is in his best interest to remain in the hospital to get the care he needs. Patient acknowledged and reports he will reach out to staff if he needs anything. This investigative writer reached out to [facility] however I was unable to confirm his participation in the program and whether he will be able to return.
--- NOTE | 2021-04-15 18:49 | MHC.CM.PN ---
CM met with pt. Admitted. [facility] provider. Pt is homeless. States staying at [facility]. Believe pt is staying on the street. HCP reviewed, completed, and signed per protocol. HCP/mother Brittany Dover ([phone]). Pt agreeable to meet with CARE team/coach wirer. States is interested in drug rehabilitation. Has signed out AMA in the past. Pt admits to IV heroin. Was on methadone at [facility] in [place], but hasn't gone in a week. Cory Lomeli met with pt. D/C plan is pending pt agreeing to drug rehabilitation. Pt is homeless. Has no contact with family. Transportation is unknown at this time. CM to follow for d/c needs.
--- NOTE | 2021-04-15 19:12 | PC.NURSE ---
Returned call to ed for report at 1911, no answer. will try again in a few minutes
--- NOTE | 2021-04-15 19:38 | PC.NURSE ---
nurse to nurse report given to Christie LEES
[2021-04-15 20:05] VITALS: BP 106/70; PULSE 86; RESP 18; TEMP 36.6; O2SAT 98
[2021-04-15] MEDS: Morphine Sulfate 2 MG/ML CARTRIDGE IVPUSH (21:39)
[2021-04-15 23:18] VITALS: BP 111/74; PULSE 78; RESP 18; TEMP 36.4; O2SAT 98
[2021-04-16] VITALS (7 sets, daily range): BP systolic 116–140; BP diastolic 69–93; PULSE 74–87; RESP 16–20; TEMP 35.9–36.6; O2SAT 98–100
--- NOTE | 2021-04-16 02:34 | PC.NURSE ---
pt refusing ct scan at this time.
[2021-04-16] MEDS: Piperacillin Sodium/Tazobactam 3.375 GM in 0.9 % Sodium Chloride 50 ML IV ×2 (03:44→11:19)
[2021-04-16] MEDS: 0.9 % Sodium Chloride Flush 3 ML SYRINGE IVFLUSH ×4 (03:45→22:09)
[2021-04-16 04:07] LABS: CT PCR NOT DETECTED (Not Detect.); NG PCR NOT DETECTED (Not Detect.)
[2021-04-16] MEDS: vancomycin HCL 1,000 MG in 0.9 % Sodium Chloride 250 ML 270 MG IV (05:29)
[2021-04-16 06:40] LABS: INTERNATIONAL NORM RATIO 1.4 (0.9-1.1); Prothrombin Time 16.3 SEC (10.8-13.0)
[2021-04-16 06:41] LABS: Hematocrit 34.3 % (42-52); Hemoglobin 10.7 g/dl (14.0-18.0); Mean Corpuscular HGB Conc 31.2 g/dl (31.0-36.0); Mean Corpuscular Hemoglobin 24.9 pg (27.0-33.0); Mean Platelet Volume 10.8 fL (9.4-12.4); Platelet Count 221 X10*3/uL (160-400); Red Blood Count 4.29 X10*6/uL (4.60-5.80); Red Cell Distribution Width 19.5 % (11.0-16.0); White Blood Count 6.6 X10*3/uL (4.8-10.8)
[2021-04-16 06:49] LABS: Alanine Aminotransferase 17 U/L (0-40); Albumin Level 2.6 g/dL (3.5-5.0); Alkaline Phosphatase 150 U/L (39-117); Anion Gap 11 (12-20); Aspartate Amino Transferase 27 U/L (5-37); Bilirubin Direct 0.5 mg/dL (0.0-0.5); Bilirubin Total 0.8 mg/dL (0.0-1.0); Blood Urea Nitrogen 16 mg/dL (9-16); Calcium 8.1 mg/dL (8.4-10.2); Carbon Dioxide 24 mmol/L (22-29); Chloride 111 mmol/L (96-108); Creatinine Clr Calc Pharmacy 77.8; Estimated Glomerular Filt Rate > 60; Glucose Fasting 78 mg/dL (60-99); Magnesium 2.2 mg/dL (1.6-2.6); Potassium 4.5 mmol/L (3.3-5.1); Sodium 141 mmol/L (135-145); Total Protein 5.4 g/dL (6.5-8.0)
[2021-04-16] MEDS: Morphine Sulfate 2 MG/ML CARTRIDGE IVPUSH ×2 (08:30→08:57)
[2021-04-16] MEDS: Enoxaparin Sodium 80 MG/0.8 ML SYRINGE 65 MG SUBCUT (08:31)
--- NOTE | 2021-04-16 09:45 | MHC.RECOVRN ---
30 year old male presented to [facility] via EMS on 04/15 due to Pt was seen last month for scrotal swelling. He was placed on xarelto at that time and his swelling had been relueved. 2 days ago he an out of his medication and his swelling has returned. He presents today with scrotal pain/swelling.?Pt states that he took gabapentin at home for pain but denies taking any other meds or any street drugs. He is very somnolent falling asleep between verbal stimuli. Pupils are 1mm per sewer cleaner. Upon evaluation, pt found to have cellulitis and admitted for treatment.? Recovery Shredder Operator met with pt on 04/15 to discuss substance use. At that time, pt reported recently going to [facility] on which was not able to be verified.?T/w spoke with Marija Griffith, program technician, who reports pt was last dosed on 03/28 with 20 mg methadone. Pt is able to return to [facility] after d/c.? Pt reports going to the [facility] x 1 month.? Prior to t/w speaking with pt, pt had been medicated with morphine 2 mg IV push x 2 due to pt reporting feeling dope sick, per RN. Medication had positive effect, however, pt does appear sweaty and restless. Pt would like to resume methadone. Case discussed with pts RN and referred to Tami Luna APRN.?
--- NOTE | 2021-04-16 11:15 | HO.PM.IMPN ---
Subjective Subjective Date of Service: 04/16/21 Interval History: withdrawl Cardiovascular Cardiovascular: Reports no additional cardiovascular complaints Gastrointestinal Gastrointestinal: Reports no additional gastrointestinal complaints Physical Exam Vital Signs: Vital Signs: Last Vital Signs Temp 97.3 F 04/16/21 08:30 Pulse 87 04/16/21 08:30 Resp 16 04/16/21 08:57 BP 133/85 04/16/21 08:30 Pulse Ox 100 04/16/21 08:30 Body Mass Index 23.3 General: AO X 3, ill appearing, diaphoretic Resp: CTA bilateral CVS: S1,S2,RRR GI: soft, non tender, non distended Neuro: motor grossly intact Psych: appropriate affect : scrotal swelling Objective Data Current Medications Generic Name Dose Route Start Last Admin Trade Name Freq PRN Reason Stop Dose Admin Acetaminophen 650 mg 04/15/21 19:39 Acetaminophen 325 Mg Tablet PO Q6H PRN Pain, Mild (Pain Scale 1-3) Enoxaparin Sodium 65 mg 04/15/21 21:00 04/16/21 08:31 Enoxaparin Sodium 80 Mg/0.8 Ml Syringe 1 mg/kg (65 mg) 65 mg SUBCUT Administration Q12H CRISTINA Piperacillin Sod/Tazobactam 50 mls @ 100 mls/hr 04/15/21 22:00 04/16/21 04:16 Sod 3.375 gm/ Sodium Chloride IV Infused Q6H CRISTINA Infusion Vancomycin HCl 750 mg/ Sodium 265 mls @ 265 mls/hr 04/16/21 17:00 Chloride IV Q12H CRISTINA Methadone HCl 10 mg 04/16/21 14:00 Methadone Hcl 1 Mg/0.1 Ml Oral.Conc PO 04/16/21 14:01 ONCE ONE Morphine Sulfate 4 mg 04/16/21 08:45 Morphine Sulfate 2 Mg/Ml Cartridge IVPUSH Q3H PRN pain Pharmacy Consult 1 each 04/15/21 16:17 Consult Rx Perform Med Rec MISCELLANE ONCE PRN Consult order Pharmacy Consult 1 each 04/15/21 19:39 Consult Rx Vancomycin Dosing MISCELLANE DAILY PRN Consult order Sodium Chloride 3 ml 04/16/21 00:00 04/16/21 08:31 0.9 % Sodium Chloride Flush 3 Ml Syringe IVFLUSH 3 ml QSHIFT [facility] Administration Labs CBC & Chem 7: 04/16/21 05:25 04/16/21 05:25 Labs: Laboratory Results - last 24 hr 04/15/21 04/15/21 04/15/21 13:10 13:10 15:55 WBC 8.7 RBC 4.53 L Hgb 11.1 L Hct 36.2 L MCV 79.9 L MCH 24.5 L MCHC 30.7 L RDW 19.0 H Plt Count 213 D MPV 9.9 Immature Gran % (Auto) 0.8 H Neut % (Auto) 58.5 Lymph % (Auto) 27.9 [place] % (Auto) 10.1 Eos % (Auto) 2.2 Baso % (Auto) 0.5 Lymph # (Auto) 2.4 [place] # (Auto) 0.9 Eos # (Auto) 0.2 Baso # (Auto) 0.0 Abs Immat Gran (auto) 0.07 H Absolute Neuts (auto) 5.1 Absolute Nucleated RBC 0.000 Nucleated RBC % (auto) 0.0 PT INR Sodium 140 Potassium 3.7 Chloride 109 H Carbon Dioxide 25 Anion Gap 10 L BUN 9 D Creatinine 0.76 Estim Creat Clear Calc 125.9 Estimated GFR > 60 Random Glucose 122 H Fasting Glucose Lactic Acid 1.1 Calcium 8.6 Magnesium Total Bilirubin 0.8 Direct Bilirubin 0.7 H AST 27 D ALT 17 Alkaline Phosphatase 165 H D Total Protein 6.0 L Albumin 2.9 L Urine Color Urine Appearance Urine pH Ur Specific [place] Urine Protein Urine Glucose (UA) Urine Ketones Urine Blood Urine Nitrite Ur Leukocyte Esterase Urine RBC Urine WBC Ur Squamous Epith Cells Urine Bacteria Urine Opiates Screen Ur Barbiturates Screen Ur Phencyclidine Scrn Ur Amphetamines Screen U Benzodiazepines Scrn Urine Cocaine Screen U Marijuana (THC) Screen Chlam trachomat DNA PCR COVID-19 ([facility]) COVID-19 Clin Com N.gonorrhoeae DNA (PCR) 04/15/21 04/15/21 04/15/21 16:22 16:55 16:55 WBC RBC Hgb Hct MCV MCH MCHC RDW Plt Count MPV Immature Gran % (Auto) Neut % (Auto) Lymph % (Auto) [place] % (Auto) Eos % (Auto) Baso % (Auto) Lymph # (Auto) [place] # (Auto) Eos # (Auto) Baso # (Auto) Abs Immat Gran (auto) Absolute Neuts (auto) Absolute Nucleated RBC Nucleated RBC % (auto) PT INR Sodium Potassium Chloride Carbon Dioxide Anion Gap BUN Creatinine Estim Creat Clear Calc Estimated GFR Random Glucose Fasting Glucose Lactic Acid Calcium Magnesium Total Bilirubin Direct Bilirubin AST ALT Alkaline Phosphatase Total Protein Albumin Urine Color YELLOW Urine Appearance CLEAR Urine pH 7.5 Ur Specific [place] 1.010 Urine Protein TRACE Urine Glucose (UA) NEG Urine Ketones NEG Urine Blood TRACE Urine Nitrite NEG Ur Leukocyte Esterase NEG Urine RBC 10-14 H Urine WBC 0 Ur Squamous Epith Cells NONE Urine Bacteria NONE Urine Opiates Screen Ur Barbiturates Screen Ur Phencyclidine Scrn Ur Amphetamines Screen U Benzodiazepines Scrn Urine Cocaine Screen U Marijuana (THC) Screen Chlam trachomat DNA PCR NOT DETECTED COVID-19 ([facility]) Negative COVID-19 Clin Com See Note N.gonorrhoeae DNA (PCR) NOT DETECTED 04/15/21 04/16/21 04/16/21 16:55 05:25 05:25 WBC 6.6 RBC 4.29 L Hgb 10.7 L Hct 34.3 L MCV 80.0 MCH 24.9 L MCHC 31.2 RDW 19.5 H Plt Count 221 MPV 10.8 Immature Gran % (Auto) Neut % (Auto) Lymph % (Auto) [place] % (Auto) Eos % (Auto) Baso % (Auto) Lymph # (Auto) [place] # (Auto) Eos # (Auto) Baso # (Auto) Abs Immat Gran (auto) Absolute Neuts (auto) Absolute Nucleated RBC 0.000 Nucleated RBC % (auto) 0.0 PT 16.3 H INR 1.4 H Sodium Potassium Chloride Carbon Dioxide Anion Gap BUN Creatinine Estim Creat Clear Calc Estimated GFR Random Glucose Fasting Glucose Lactic Acid Calcium Magnesium Total Bilirubin Direct Bilirubin AST ALT Alkaline Phosphatase Total Protein Albumin Urine Color Urine Appearance Urine pH Ur Specific [place] Urine Protein Urine Glucose (UA) Urine Ketones Urine Blood Urine Nitrite Ur Leukocyte Esterase Urine RBC Urine WBC Ur Squamous Epith Cells Urine Bacteria Urine Opiates Screen POSITIVE H Ur Barbiturates Screen Not Detected Ur Phencyclidine Scrn Not Detected Ur Amphetamines Screen Not Detected U Benzodiazepines Scrn Not Detected Urine Cocaine Screen POSITIVE H U Marijuana (THC) Screen POSITIVE H Chlam trachomat DNA PCR COVID-19 ([facility]) COVID-19 Clin Com N.gonorrhoeae DNA (PCR) 04/16/21 05:25 WBC RBC Hgb Hct MCV MCH MCHC RDW Plt Count MPV Immature Gran % (Auto) Neut % (Auto) Lymph % (Auto) [place] % (Auto) Eos % (Auto) Baso % (Auto) Lymph # (Auto) [place] # (Auto) Eos # (Auto) Baso # (Auto) Abs Immat Gran (auto) Absolute Neuts (auto) Absolute Nucleated RBC Nucleated RBC % (auto) PT INR Sodium 141 Potassium 4.5 D Chloride 111 H Carbon Dioxide 24 Anion Gap 11 L BUN 16 D Creatinine 1.23 Estim Creat Clear Calc 77.8 Estimated GFR > 60 Random Glucose Fasting Glucose 78 Lactic Acid Calcium 8.1 L Magnesium 2.2 Total Bilirubin 0.8 Direct Bilirubin 0.5 AST 27 ALT 17 Alkaline Phosphatase 150 H Total Protein 5.4 L Albumin 2.6 L Urine Color Urine Appearance Urine pH Ur Specific [place] Urine Protein Urine Glucose (UA) Urine Ketones Urine Blood Urine Nitrite Ur Leukocyte Esterase Urine RBC Urine WBC Ur Squamous Epith Cells Urine Bacteria Urine Opiates Screen Ur Barbiturates Screen Ur Phencyclidine Scrn Ur Amphetamines Screen U Benzodiazepines Scrn Urine Cocaine Screen U Marijuana (THC) Screen Chlam trachomat DNA PCR COVID-19 ([facility]) COVID-19 Clin Com N.gonorrhoeae DNA (PCR) Quality Stroke Does the patient have a stroke diagnosis?: No VTE Prior VTE?: Yes VTE Risk Level:: Medical - moderate - high VTE Device Contraindication: Treatment Not Indicated VTE Drug Contraindication: N/A - Med Ordered Assessment and Plan (1) Cellulitis, scrotum: Status: Acute Assessment and Plan: 30M presented with scrotal swelling scrotal swelling CT showing right heart failure vs budd chiari cellulitis unlikely at this point will dc antibiotics, monitor closely, follow up cultures check abd doppler to rule out budd chiari, GI eval check limited echo, could have right heart failure from partially treated PE, or failure of recent tricuspid valve replacement for recent endocarditis recent PE therapeutic lovenox HCV outpatient follow up polysubstance abuse with withdrawl started methadone
[2021-04-16] MEDS: iohexoL 350 MG/ML 100 ML INFUS..BTL 85 ML IV (11:16)
[2021-04-16] MEDS: Morphine Sulfate 2 MG/ML CARTRIDGE 4 MG IVPUSH ×2 (15:50→21:52)
--- NOTE | 2021-04-16 16:14 | PC.NURSE ---
Skin assessment completed today. No skin issues were found, skin dry and intact. Scrotum was found to be slightly swollen. Medical is aware.
--- NOTE | 2021-04-16 16:32 | P.EN_ITS ---
Event Note Date of Service: 04/16/21 Event Note: Addiction note: Patient is a 30 year old male with OUD, hx of endocarditis currently medically admitted with what was thought to be cellulitis now question of right side heart failure. Reporting withdrawal sx. Verified that he was recently a patient at [facility]. Last dose was about a week ago and it was 20mg. Plan: -received 2 doses of methadone (10mg each). Reporting impproved withdrawal sx, but still feeling some body aches and chills. -still reporting pain in his testicle area --has morphine prn ordered -tomorrow 20mg methadone in AM and will reassess and titrate as necessary
--- NOTE | 2021-04-16 16:51 | P.CNGI_ITS ---
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 Patient denies any injury to scrotum, penile discharge, penile lesions, abdominal pain, fever, or chills. He denies injecting drugs to scrotum. Patient was seen here last month for similar issue was done with scrotal cellulitis, but signed against medical advice. Patient admits to being an IV drug user . Patient had scrotal cellulitis in early February 2021. he was treated at [facility], it is unclear if he picked up his antibiotics. at that time he was also diagnosed with PE. Pt has been off his xarelto for atleast 2 weeks. in the interim patient states his scrotal swelling had resolved. now complaining of 2 days severe swelling and pain, denies fever, chills, sob, chest pain. in ED Us showed severe cellulitis, no signs of sepsis. Patient complains of fever, chills, nausea and decreased appetite with the weight loss. Pt denies abdominal pain, vomiting, change in bowel habits. Patient denies known family history of colon polyps, colon cancer or other GI malignancies. PAST EGD/COLONOSCOPY: None in [facility] Pt is homeless and has a 4 yr old son whom he has not seen in several months. Patient reports he was hospitalized at [facility] for endocarditis X ? 7 months IMAGING STUDIES: 04/15/[address] SCAN SHOWED: No evidence of venous obstruction the pelvis. Enlarged heart. Enlarged liver with heterogeneous enhancement. Prominent suprahepatic IVC. Possible right heart compromise and heterogeneous liver perfusion related to that or Budd-Chiari should be considered. Small amount of ascites around the liver, gallbladder and pelvis. Diffuse subcutaneous edema in the pelvis. Shotty bilateral inguinal lymphadenopathy. Review of Systems Constitutional: Constitutional: Reports chills, Reports fever(s), Denies headache(s), Reports night sweats and Reports weight loss Eyes: Eyes: Denies eye discharge and Denies irritation ENT: Reports Normal hearing present, Denies dysphagia, Denies dizziness and Denies headache(s) Cardiovascular: Cardiovascular: Denies chest pain, Denies leg edema and Denies dyspnea on exertion Respiratory: Respiratory: Denies cough, Denies dyspnea on exertion and Denies wheezing Gastrointestinal: Gastrointestinal: Denies abdominal pain, Denies change in bowel habits, Denies dysphagia and Denies heartburn Genitourinary: Genitourinary: Denies dysuria and Reports scrotal swelling Musculoskeletal: Musculoskeletal: Denies back pain and Reports arthralgias Integumentary/Breasts: Skin/Breast: Denies pruritus, Denies rash and Denies jaundice Neurologic: Reports Normal hearing present, Denies Abnormal speech present, Denies dizziness, Denies headache(s) and Denies seizure-like activity Psychiatric: Psychiatric: Reports anxiety, Reports depression and Denies panic attacks Endocrine: Endocrine: Denies cold intolerance, Denies flushing and Denies heat intolerance Hematologic/Lymphatic: Hematologic/Lymphatic: Denies easy bleeding and Denies easy bruising Allergic/Immunologic: Allergic/Immunologic: Denies wheezing PMFSH Past Medical History Medical History Anasarca Bacteremia Endocarditis HCV (hepatitis C virus) Pulmonary embolism Right heart failure Steatosis, liver Tricuspid valve stenosis Functional capacity: independent ambulation Family History Family history: reviewed and not pertinent Surgical History Surgical History History of tricuspid valve replacement with bioprosthetic valve Social History Social History Household Members: Unknown / Unable to assess Household Members Other:: none. homeless Housing: Unknown / Unable to assess Do you presently have visiting nurse or other home services: No Unable to assess alcohol history related to: Refusing to respond Alcohol intake: unknown Patient Tobacco Use Status: Tobacco use Unknown Tobacco use type: Cigarette Substance Use Type: Heroin Advance Directives: No Advance Directives Information Provided: No service: No Current occupational status: unemployed Meds Allergies Allergy/AdvReac Type Severity Reaction Status Date / Time No Known Allergies Allergy Verified 10/23/21 20:44 [No Known Allergies*] Active Medications: Current Medications Generic Name Dose Route Start Last Admin Trade Name Freq PRN Reason Stop Dose Admin Acetaminophen 650 mg 04/15/21 19:39 Acetaminophen 325 Mg Tablet PO Q6H PRN Pain, Mild (Pain Scale 1-3) Enoxaparin Sodium 65 mg 04/15/21 21:00 04/16/21 08:31 Enoxaparin Sodium 80 Mg/0.8 Ml Syringe 1 mg/kg (65 mg) 65 mg SUBCUT Administration Q12H [facility] Methadone HCl 20 mg 04/17/21 09:00 Methadone Hcl 1 Mg/0.1 Ml Oral.Conc PO DAILY CRISTINA Morphine Sulfate 4 mg 04/16/21 13:20 04/16/21 15:50 Morphine Sulfate 2 Mg/Ml Cartridge IVPUSH 4 mg Q6H PRN Administration pain Pharmacy Consult 1 each 04/15/21 16:17 Consult Rx Perform Med Rec MISCELLANE ONCE PRN Consult order Pharmacy Consult 1 each 04/15/21 19:39 Consult Rx Vancomycin Dosing MISCELLANE DAILY PRN Consult order Sodium Chloride 3 ml 04/16/21 00:00 04/16/21 15:51 0.9 % Sodium Chloride Flush 3 Ml Syringe IVFLUSH 3 ml QSHIFT [facility] Administration Home Medications Medication Instructions Recorded Confirmed Last Taken Type No Known Home Meds 10/08/21 10/08/21 Unknown History Physical Exam Vital Signs: Vital Signs: Last Vital Signs Temp 98 F 04/16/21 15:47 Pulse 81 04/16/21 15:47 Resp 16 04/16/21 15:50 BP 128/88 04/16/21 15:47 Pulse Ox 99 04/16/21 15:47 Body Mass Index 23.3 Const: General: no acute distress and ill appearing Nutritional Appearance: average body habitus Orientation/consciousness: patient oriented x3 Limitations: no limitations HENMT: Head: Yes normal to inspection Ears: hearing grossly normal bilaterally Mouth: Normal oral and palatal mucosa present Eyes: Sclerae: sclerae normal Pupils: Equal, round and reactive pupils present Neck: Neck: Yes normal visual inspection Chest: Chest palpation & inspection: normal inspection of the chest Resp: Effort & Inspection: normal respiratory effort Auscultation: clear to auscultation bilaterally Cardio: Palpation: normal PMI Rate: regular rate Rhythm: regular rhythm Heart sounds: S1 normal heart sound present, S2 normal heart sound present and no murmurs GI: Palpation (GI): Soft to palpation, nontender and Hepatomegaly present Auscultation: normal bowel sounds Rectal Exam - Male: Yes deferred Skin: General skin exam: no rashes or lesions noted Neuro: General: patient oriented x3, gait normal and moves all extremities Cranial nerves: Yes Equal, round and reactive pupils present and Yes Normal hearing present Speech: No Abnormal speech present Extrem: General: Yes edema (bilateral 1+ pitting edema both lower extremities) Psych: Appearance: grossly normal Mental Status: mental status grossly normal Results Labs CBC & Chem 7: 04/17/21 05:22 04/17/21 05:22 Labs: Short CBC 04/16/21 Range/Units 05:25 WBC 6.6 (4.8-10.8) X10*3/uL Hgb 10.7 L (14.0-18.0) g/dl Hct 34.3 L (42-52) % Plt Count 221 (160-400) X10*3/uL BMP 04/16/21 05:25 Sodium 141 Potassium 4.5 D Chloride 111 H Carbon Dioxide 24 BUN 16 D Creatinine 1.23 Calcium 8.1 L Liver Function 04/16/21 Range/Units 05:25 Total Bilirubin 0.8 (0.0-1.0) mg/dL Direct Bilirubin 0.5 (0.0-0.5) mg/dL AST 27 (5-37) U/L ALT 17 (0-40) U/L Alkaline Phosphatase 150 H (39-117) U/L Albumin 2.6 L (3.5-5.0) g/dL Urine 04/15/21 Range/Units 16:55 Urine Color YELLOW Urine Appearance CLEAR Urine pH 7.5 (5.0-8.0) Ur Specific [place] 1.010 (1.005-1.025) Urine Protein TRACE (NEG-TRACE) MG/DL Urine Glucose (UA) NEG (NEG) MG/DL Assessment and Plan (1) HCV (hepatitis C virus): Status: Acute (2) Abnormal CT of liver: Status: Resolved 30 YM with hx of polysubstance abuse, 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 Labs show elevated LFTs. 04/15/[address] SCAN SHOWED: Enlarged heart, enlarged liver with heterogeneous enhancement and prominent suprahepatic IVC. Possible right heart compromise and heterogeneous liver perfusion related to that or Budd-Chiari should be considered. Small amount of ascites around the liver, gallbladder and pelvis. CT changes are likely related to right heart failure and less likely due to Budd-Chiari syndrome since pt denies abdominal pain and has a normal bilirubin and transaminases. Or patient may have subacute or chronic Budd-Chiari syndrome which can present with minimal symptoms. RECOMMENDATIONS: 1. Obtain abdominal ultrasound with doppler to rule out Budd-Chiari syndrome. If doppler US is suggestive of Budd Chiari Syndrome, recommend additional workup to rule out hypercoagulable state. 2. Agree with starting patient on enoxaparin 3. Patient has chronic untreated hepatitis-C likely acquired by needed sharing. Patient will need to follow up with GI as an outpatient to discuss treatment after he stops using IV drugs Procedures Date of Service Date of Service: 04/16/21
[2021-04-17 06:47] LABS: Hematocrit 37.4 % (42-52); Hemoglobin 11.7 g/dl (14.0-18.0); Mean Corpuscular HGB Conc 31.3 g/dl (31.0-36.0); Mean Corpuscular Hemoglobin 24.7 pg (27.0-33.0); Mean Corpuscular Volume 78.9 fL (80-98); Mean Platelet Volume 10.4 fL (9.4-12.4); Platelet Count 251 X10*3/uL (160-400); Red Blood Count 4.74 X10*6/uL (4.60-5.80); Red Cell Distribution Width 19.5 % (11.0-16.0); White Blood Count 8.6 X10*3/uL (4.8-10.8)
[2021-04-17 06:55] LABS: Anion Gap 12 (12-20); Blood Urea Nitrogen 15 mg/dL (9-16); Calcium 8.5 mg/dL (8.4-10.2); Carbon Dioxide 22 mmol/L (22-29); Chloride 110 mmol/L (96-108); Creatinine Clr Calc Pharmacy 97.6; Estimated Glomerular Filt Rate > 60; Glucose Fasting 74 mg/dL (60-99); Potassium 4.9 mmol/L (3.3-5.1); Sodium 139 mmol/L (135-145)
--- NOTE | 2021-04-17 07:30 | CA_ITS ---
Transthoracic Echocardiogram Patient (Last, First, Middle): Norberto Marquez, Gender: Male Date of : 1990 Age: 30 Procedure Date: 04/17/2021 Procedure Type: Transthoracic Echocardiogram Location: [place] Height: 167.64 cm Weight: 65.77 kg BSA: 1.74 m2 Heart Rate: bpm BP: 132 / 91 mmHg Writing Tutor: Referring MD: Gaurav Snowden MD Heel Compressor: Clyde Delaney MD Symptoms: ? right heart strain, recent partially treated PE, anasarca Study Quality: Good ECG Rhythm: Sinus Conclusions: - 1. This was an incomplete study as patient was uncooperative 2. Bioprosthetic tricuspid valve present with mean gradient of 9 mm Hg suggestive of stenosis, unclear etiology 3. LV systolic function on limited study appears to be preserved Findings Left Ventricle The left ventricular systolic function is normal. Aortic Valve Normal aortic valve structure and function. There is no aortic valve stenosis. Mitral Valve There is mild anterior and posterior mitral leaflet thickening. There is no mitral valve stenosis. Pulmonic Valve The pulmonic valve was not well visualized. Tricuspid Valve A bioprosthetic tricuspid valve is present. The prosthetic tricuspid valve appears to be functioning abnormally. Echo findings are consistent with stenosis of the tricuspid valve prosthesis. Mean tricuspid gradient is 9 mmHg. Prior Study Comparison Bioprosthetic tricuspid valve present with suggestion of stenosis with mean gradient of 9 mm of mercury. Findings were d/w Dr. Huitron Measurements 2D Linear Measurements IVSd: 1.20 0.6-0.9/0.6-1.0 cm LVIDd: 4.61 3.9-5.3/4.2-5.9 cm LVIDd Index: 2.65 2.4-3.2/2.2-3.1 cm/m2 LVIDs: 3.46 2.0-3.6 cm LVPWd: 1.20 0.7-1.1 cm LA Diam: 3.50 2.7-3.8/3.0-4.0 cm LAIDs Index: 2.01 1.5-2.3 cm/m2 LV Mass: 256.36 67-162/88-224 g LV Mass Index: 147.33 43-95/49-115 g/m2 Mitral Valve MV Pk E: 0.70 MV PK A: 0.50 MV Decel Time: 161.00 E/A: 1.40 PHT: 47.00 MVA PHT: 4.68 Decel Powell: 4.37 Diastolic Function MV Pk E: 0.70 MV Pk A: 0.50 E/A: 1.40 Tricuspid Valve TV Mn Grad: 9.00 Updated in Other Vendor System with Status of Final Clyde Delaney MD electronically signed on 04/17/2021 1:40:35 PM with status of Final
[2021-04-17] MEDS: Enoxaparin Sodium 80 MG/0.8 ML SYRINGE 65 MG SUBCUT (09:17)
[2021-04-17] MEDS: 0.9 % Sodium Chloride Flush 3 ML SYRINGE IVFLUSH (09:18)
[2021-04-17] MEDS: methADONE HCl 5 MG TABLET PO (12:32)
--- NOTE | 2021-04-17 13:06 | HO.PM.IMPN ---
Subjective Subjective Date of Service: 04/17/21 Interval History: seen and evaluated this morning denies any fever, chills Pain and swelling in his scrotum improved Patient told the nurses that he needs to leave the hospital to go to use drugs, convinced him stay for further evaluation Physical Exam Vital Signs: Vital Signs: Last Vital Signs Temp 96.6 F L 04/16/21 22:09 Pulse 81 04/16/21 22:09 Resp 17 04/16/21 22:09 BP 140/93 H 04/16/21 22:09 Pulse Ox 98 04/16/21 22:09 Body Mass Index 23.3 Const: Other: Constitutional : Alert, oriented, not in distress Neck : Normal inspection, Supple Cardiovascular : RRR, S1 S2, no lower extremity edema Respiratory : Good bilateral air entry, no crackles, wheezes or rhonchi Gastrointestinal: soft, lax, Normal bowel sounds, Non tender Skin : Warm/Dry, No rash, mildly thickened scrotal wall but no tenderness noted Neurological : Alert & oriented x3, No focal deficit Objective Data Current Medications Generic Name Dose Route Start Last Admin Trade Name Freq PRN Reason Stop Dose Admin Acetaminophen 650 mg 04/15/21 19:39 Acetaminophen 325 Mg Tablet PO Q6H PRN Pain, Mild (Pain Scale 1-3) Enoxaparin Sodium 65 mg 04/15/21 21:00 04/17/21 09:17 Enoxaparin Sodium 80 Mg/0.8 Ml Syringe 1 mg/kg (65 mg) 65 mg SUBCUT Administration Q12H CRISTINA Methadone HCl 20 mg 04/17/21 09:00 04/17/21 09:13 Methadone Hcl 1 Mg/0.1 Ml Oral.Conc PO 20 mg DAILY CRISTINA Administration Morphine Sulfate 4 mg 04/16/21 13:20 04/16/21 21:52 Morphine Sulfate 2 Mg/Ml Cartridge IVPUSH 4 mg Q6H PRN Administration pain Pharmacy Consult 1 each 04/15/21 16:17 Consult Rx Perform Med Rec MISCELLANE ONCE PRN Consult order Pharmacy Consult 1 each 04/15/21 19:39 Consult Rx Vancomycin Dosing MISCELLANE DAILY PRN Consult order Sodium Chloride 3 ml 04/16/21 00:00 04/17/21 09:18 0.9 % Sodium Chloride Flush 3 Ml Syringe IVFLUSH 3 ml QSHIFT CRISTINA Administration Labs CBC & Chem 7: 04/17/21 05:22 04/17/21 05:22 Labs: Laboratory Results - last 24 hr 04/17/21 04/17/21 05:22 05:22 WBC 8.6 RBC 4.74 Hgb 11.7 L Hct 37.4 L MCV 78.9 L MCH 24.7 L MCHC 31.3 RDW 19.5 H Plt Count 251 MPV 10.4 Absolute Nucleated RBC 0.000 Nucleated RBC % (auto) 0.0 Sodium 139 Potassium 4.9 Chloride 110 H Carbon Dioxide 22 Anion Gap 12 BUN 15 Creatinine 0.98 Estim Creat Clear Calc 97.6 Estimated GFR > 60 Fasting Glucose 74 Calcium 8.5 Microbiology Microbiology Results: Microbiology 04/15/21 15:55 Blood Culture - Preliminary Blood - Venous No growth after 24 hours. 04/15/21 15:55 Blood Culture - Preliminary Blood - Venous No growth after 24 hours. Quality Stroke Does the patient have a stroke diagnosis?: No VTE Prior VTE?: Yes VTE Risk Level:: Medical - moderate - high VTE Device Contraindication: Treatment Not Indicated VTE Drug Contraindication: N/A - Med Ordered Assessment and Plan (1) Cellulitis, scrotum: Status: Acute Assessment and Plan: 30M presented with scrotal swelling scrotal swelling CT showing right heart failure abdominal ultrasound negative for budd chiariBut showed enlarged liver, spleen and possible renal disease cellulitis unlikely, DC antibiotics negative cultures up to this point, follow up pending limited echo, could have right heart failure from partially treated PE or failure of recent tricuspid valve replacement for recent endocarditis recent PE therapeutic lovenox HCV outpatient follow up polysubstance abuse with withdrawl addiction team evaluation started methadone
--- NOTE | 2021-04-17 13:25 | PC.NURSE ---
Patient left AMA at 1320. Patient education regarding risks of leaving prior to completing full course of medical treatment given. Patient verbalized understanding. Dr. Huitron made aware
--- NOTE | 2021-04-17 13:53 | PM.EVENT ---
Event Note Date of Service: 04/17/21 Event Note: discharge summary Discharge diagnosis Scrotal swelling Hepatic splenomegaly Polysubstance abuse, opioid withdrawal patient was admitted for evaluation of scrotal swelling. Images were consistent with enlarged spleen, liver and heart. Echo was done showing bioprosthetic tricuspid valve stenosis with mean gradient pressure 9. The patient decided to leave against medical advice in spite of advising him to stay for further evaluation and the dangerous nature of this disease requiring further evaluation by Cardiology. He did refuse and signed the AMA papers and left the hospital. 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
--- NOTE | 2021-04-17 14:42 | P.EN_ITS ---
Event Note Date of Service: 04/17/21 Event Note: Addiction follow up: Patient this morning--guarded affect, minimal answers. Reporting that methadone 20mg helped a little bit with withdrawal, but he was planning on leaving anyway. Attempted to engage in discussion around substance use and motivation for hermila tment. He declined offers for referrals, including [facility], and stated that he hopes to go live with his mother again. He is currently unhoused. Harm reduction discussion regarding drug use, including increased risks given recent cardiac surgery--pt nodding, but not engaged. Plan: -additional 5mg methadone today (total of 25mg) -RS RN to send last dose letter to [facility]
== END 2021-04-17 13:20 | disposition left against medical advice (07) | DRG 501 ==
LOC: HO.ED 16:45 → HO.EDOVER 17:10 → HO.IMC 17:33
PROVIDERS: Physician Assistant; Admitting Provider Internal Medicine; Emergency Provider Internal Medicine; Visit Provider Student in an Organized Health Care Education/Training Program
DX: N49.2 Inflammatory disorders of scrotum (principal); I82.0 Budd-Chiari syndrome; B19.20 Unspecified viral hepatitis C without hepatic coma; R16.2 Hepatomegaly with splenomegaly, not elsewhere classified; F19.139 Other psychoactive substance abuse with withdrawal, unspecified; Z91.14 Patient's other noncompliance with medication regimen; F17.210 Nicotine dependence, cigarettes, uncomplicated; Z71.6 Tobacco abuse counseling; Z20.822 Contact with and (suspected) exposure to COVID-19; Z95.2 Presence of prosthetic heart valve; Z86.711 Personal history of pulmonary embolism; Z79.01 Long term (current) use of anticoagulants
CPT/HCPCS: 36415; 74177; 76700; 76870; 80048; 80053; 80076; 80307; 81001; 81003; 83605; 83735; 85025; 85027; 85610; 87040; 87491; 87591; 87635; 93308; 93975; 99285; J1650; J1885; J2270; J2543; J3370; Q9967

== ENCOUNTER 2021-07-05 20:13 | Inpatient (IN) | payer MEDICAID, SELFPAY ==
--- NOTE | ~2021-07-05 | XR_ITS ---
EXAMINATION: XR CHEST CLINICAL INFORMATION: Chest wall pain COMPARISON: 06/12/2020 TECHNIQUE: Frontal view of the chest was obtained. FINDINGS: Lung volumes are symmetric. No focal consolidation is seen. No evidence of pneumothorax, pleural effusion, or pulmonary edema. The cardiomediastinal contour is unremarkable. Sternal wires and plates are noted. No acute osseous findings are seen. XR/XR chest 1V IMPRESSION: No acute cardiopulmonary findings.
[2021-07-05 20:39] VITALS: BP 95/52; PULSE 78; RESP 16; TEMP 36.6; O2SAT 98; BMI 23.3
[2021-07-06] VITALS: BP 101/57; PULSE 94; RESP 16; O2SAT 97
--- NOTE | 2021-07-06 | ECG_ITS ---
Test Reason : ELEVATED TROPONIN Blood Pressure : / mmHG Vent. Rate : 073 BPM Atrial Rate : 073 BPM P-R Int : 142 ms QRS Dur : 088 ms QT Int : 470 ms P-R-T Axes : 086 087 062 degrees QTc Int : 517 ms Normal sinus rhythm Possible Left atrial enlargement Prolonged QT Abnormal ECG When compared with ECG of 31-OCT-2019 02:52, Vent. rate has decreased BY 36 BPM Referred By: Gaurav Snowden Electronically Signed By:FAVIOLA PATRICIA
--- NOTE | 2021-07-06 | ECG_ITS ---
Test Reason : REPEAT Blood Pressure : / mmHG Vent. Rate : 087 BPM Atrial Rate : 087 BPM P-R Int : 136 ms QRS Dur : 080 ms QT Int : 404 ms P-R-T Axes : 078 029 033 degrees QTc Int : 486 ms Normal sinus rhythm Possible Left atrial enlargement Nonspecific ST and T wave abnormality Prolonged QT Abnormal ECG When compared with ECG of 06-JUL-2021 00:52, Questionable change in QRS axis Referred By: Gaurav Snowden Electronically Signed By:FAVIOLA PATRICIA
[2021-07-06 00:24] LABS: Basophils Absolute Auto 0.1 X10*3/uL (0.0-0.2); Eosinophils Percent Auto 0.5 % (0-4); Hemoglobin 9.6 g/dl (14.0-18.0); MANUAL DIFF FLAG SCAN; PLT ABN DIST 1; SCAN SMEAR FLAG 1
[2021-07-06 00:26] LABS: Basophils Percent Auto 0.3 % (0-2); Eosinophils Absolute Auto 0.1 X10*3/uL (0.0-0.4); Imm Gran Abs Auto 0.72 X10*3/uL (0.00-0.03); Lymphocytes Absolute Auto 2.9 X10*3/uL (1.2-4.9); Lymphocytes Percent Auto 12.4 % (20-40); Mean Corpuscular HGB Conc 33.1 g/dl (31.0-36.0); Mean Corpuscular Hemoglobin 25.3 pg (27.0-33.0); Mean Corpuscular Volume 76.3 fL (80-98); Monocytes Absolute Auto 1.7 X10*3/uL (0.1-1.2); Monocytes Percent Auto 7.1 % (2-11); Neutrophils Absolute Auto 18.2 X10*3/uL (2.0-8.3); Neutrophils Percent Auto 76.7 % (45-73); Red Cell Distribution Width 23.7 % (11.0-16.0); White Blood Count 23.7 X10*3/uL (4.8-10.8)
[2021-07-06 00:40] LABS: Alanine Aminotransferase 22 U/L (0-40); Albumin Level 2.2 g/dL (3.5-5.0); Alkaline Phosphatase 176 U/L (39-117); Anion Gap 11 (12-20); Aspartate Amino Transferase 25 U/L (5-37); Bilirubin Total 5.2 mg/dL (0.0-1.0); Blood Urea Nitrogen 18 mg/dL (9-16); Calcium 7.7 mg/dL (8.4-10.2); Carbon Dioxide 22 mmol/L (22-29); Chloride 105 mmol/L (96-108); Creatinine Clr Calc Pharmacy 88.7; Estimated Glomerular Filt Rate > 60; Glucose Random 84 mg/dL (60-115); Potassium 3.6 mmol/L (3.3-5.1); Sodium 134 mmol/L (135-145); Total Protein 5.1 g/dL (6.5-8.0)
[2021-07-06 00:45] LABS: Platelet Count 89 X10*3/uL (160-400); SLIDE REVIEW VERIFIED
[2021-07-06 00:47] LABS: Troponin-I High Sensitivity 152.9 ng/L (<3.5-35.0)
--- NOTE | 2021-07-06 00:55 | ED.GENADULT ---
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, hepatitis-C, pulmonary embolism, noncompliant with his medication has not taken medication for a while comes here for cough body aches and leg swelling Related Data Home Medications Medication Instructions Recorded Confirmed No Known Home Meds 07/06/21 07/06/21 Allergies Allergy/AdvReac Type Severity Reaction Status Date / Time No Known Allergies Allergy Unverified 07/05/20 15:53 [No Known Allergies*] [facility] Past Medical History Medical History (Updated 07/06/21 @ 05:16 by Timothy Tomlinson MD) Drug abuse Drug abuse and dependence Endocarditis HCV (hepatitis C virus) Pulmonary embolism Surgical History History of tricuspid valve replacement with bioprosthetic valve Social History Social History Household Members: None Housing: Homeless Do you presently have visiting nurse or other home services: No Alcohol intake: never Patient Tobacco Use Status: Current everyday Tobacco user Tobacco use type: Cigarette Smoked in Last 30 Days: Yes Use of substances other than those prescribed or required for medical reasons: Yes Substance Use Type: Crack/Cocaine, Heroin, Marijuana and Opiates Substance Use Frequency: Daily Advance Directives: No service: No Current occupational status: unemployed Physical Exam Vital Signs: Vital Signs: Last Vital Signs Temp 97.9 F 07/06/21 01:25 Pulse 70 07/06/21 02:00 Resp 16 07/06/21 02:00 BP 105/64 07/06/21 02:00 Pulse Ox 97 07/06/21 02:00 Body Mass Index 23.3 Appearance: Alert. Oriented X3. No acute distress. Afebrile Eyes: PERRLA, No Nystagmus ENT: Pharynx normal. Oral Mucosa moist Neck: Normal inspection. Neck supple. CVS: Normal heart rate and rhythm. Pulses normal. Systolic murmur 2/6 left parasternal area Respiratory: No respiratory distress. Equal air entry bilateral, no wheezing/rales/rhonchi Abdomen: Soft and nontender. Bowel sounds are present, no mass palpable, no CVA tenderness Skin: Skin warm and dry. Normal skin color. Normal skin turgor. Extremities: + lower extremity edema. No calf tenderness with track tan of IVDA Neuro: Oriented X 3. No motor deficit. No sensory deficit.No cerebellar signs , cranial nerves II-XII intact Medical Decision Making MDM Narrative Medical decision making narrative: Patient with history of IVDA substance abuse with trach aspirate well MSSA endocarditis status post bioprosthetic well history of pulmonary embolism noncompliant to medications workup showed leukocytosis of 23.7 with normal lactic acid level afebrile likely bacteremic started on IV vancomycin and Zosyn IV fluids were given patient troponin is elevated to 152.9 without any acute ischemic changes likely from demand ischemia from infection. Will admit patient to rule out bacteremia Lab Data Lab results reviewed: Yes I reviewed the patient's lab results. Result diagrams: 07/06/21 00:09 07/06/21 00:09 Labs: Lab Results 07/06/21 07/06/21 07/06/21 Range/Units 00:09 00:09 00:09 WBC 23.7 H (4.8-10.8) X10*3/uL RBC 3.80 L (4.60-5.80) X10*6/uL Hgb 9.6 L (14.0-18.0) g/dl Hct 29.0 L D (42-52) % MCV 76.3 L (80-98) fL MCH 25.3 L (27.0-33.0) pg MCHC 33.1 (31.0-36.0) g/dl RDW 23.7 H (11.0-16.0) % Plt Count 89 L D (160-400) X10*3/uL MPV Not Reportable Immature Gran % (Auto) 3.0 H (0.0-0.4) % Neut % (Auto) 76.7 H (45-73) % Lymph % (Auto) 12.4 L (20-40) % Greenlee % (Auto) 7.1 (2-11) % Eos % (Auto) 0.5 (0-4) % Baso % (Auto) 0.3 (0-2) % Lymph # (Auto) 2.9 (1.2-4.9) X10*3/uL Greenlee # (Auto) 1.7 H (0.1-1.2) X10*3/uL Eos # (Auto) 0.1 (0.0-0.4) X10*3/uL Baso # (Auto) 0.1 (0.0-0.2) X10*3/uL Abs Immat Gran (auto) 0.72 H (0.00-0.03) X10*3/uL Absolute Neuts (auto) 18.2 H (2.0-8.3) X10*3/uL Absolute Nucleated RBC 0.000 (0.0-0.012) X10*3/uL Nucleated RBC % (auto) 0.0 (0.0-0.2) /100WBC Smear Tech's Comments VERIFIED PT (9.9-13.0) SEC INR (0.9-1.1) APTT (24.1-38.0) SEC Sodium 134 L (135-145) mmol/L Potassium 3.6 D (3.3-5.1) mmol/L Chloride 105 (96-108) mmol/L Carbon Dioxide 22 (22-29) mmol/L Anion Gap 11 L (12-20) BUN 18 H (9-16) mg/dL Creatinine 1.04 (0.5-1.4) mg/dL Estim Creat Clear Calc 88.7 Estimated GFR > 60 Random Glucose 84 (60-115) mg/dL Lactic Acid (0.5-2.0) mmol/L Calcium 7.7 L D (8.4-10.2) mg/dL Total Bilirubin 5.2 H (0.0-1.0) mg/dL AST 25 (5-37) U/L ALT 22 (0-40) U/L Alkaline Phosphatase 176 H (39-117) U/L Troponin I High Sens 152.9 H* (<3.5-35.0) ng/L B-Natriuretic Peptide (<100) pg/mL Total Protein 5.1 L (6.5-8.0) g/dL Albumin 2.2 L (3.5-5.0) g/dL COVID-19 ([facility]) (Negative) COVID-19 Clin Com 07/06/21 07/06/21 07/06/21 Range/Units 00:56 01:09 01:09 WBC (4.8-10.8) X10*3/uL RBC (4.60-5.80) X10*6/uL Hgb (14.0-18.0) g/dl Hct (42-52) % MCV (80-98) fL MCH (27.0-33.0) pg MCHC (31.0-36.0) g/dl RDW (11.0-16.0) % Plt Count (160-400) X10*3/uL MPV Immature Gran % (Auto) (0.0-0.4) % Neut % (Auto) (45-73) % Lymph % (Auto) (20-40) % Greenlee % (Auto) (2-11) % Eos % (Auto) (0-4) % Baso % (Auto) (0-2) % Lymph # (Auto) (1.2-4.9) X10*3/uL Greenlee # (Auto) (0.1-1.2) X10*3/uL Eos # (Auto) (0.0-0.4) X10*3/uL Baso # (Auto) (0.0-0.2) X10*3/uL Abs Immat Gran (auto) (0.00-0.03) X10*3/uL Absolute Neuts (auto) (2.0-8.3) X10*3/uL Absolute Nucleated RBC (0.0-0.012) X10*3/uL Nucleated RBC % (auto) (0.0-0.2) /100WBC Smear Tech's Comments PT 27.4 H (9.9-13.0) SEC INR 2.4 H (0.9-1.1) APTT 39.4 H (24.1-38.0) SEC Sodium (135-145) mmol/L Potassium (3.3-5.1) mmol/L Chloride (96-108) mmol/L Carbon Dioxide (22-29) mmol/L Anion Gap (12-20) BUN (9-16) mg/dL Creatinine (0.5-1.4) mg/dL Estim Creat Clear Calc Estimated GFR Random Glucose (60-115) mg/dL Lactic Acid 1.1 (0.5-2.0) mmol/L Calcium (8.4-10.2) mg/dL Total Bilirubin (0.0-1.0) mg/dL AST (5-37) U/L ALT (0-40) U/L Alkaline Phosphatase (39-117) U/L Troponin I High Sens (<3.5-35.0) ng/L B-Natriuretic Peptide (<100) pg/mL Total Protein (6.5-8.0) g/dL Albumin (3.5-5.0) g/dL COVID-19 ([facility]) Negative (Negative) COVID-19 Clin Com See Note 07/06/21 07/06/21 Range/Units 01:09 03:47 WBC (4.8-10.8) X10*3/uL RBC (4.60-5.80) X10*6/uL Hgb (14.0-18.0) g/dl Hct (42-52) % MCV (80-98) fL MCH (27.0-33.0) pg MCHC (31.0-36.0) g/dl RDW (11.0-16.0) % Plt Count (160-400) X10*3/uL MPV Immature Gran % (Auto) (0.0-0.4) % Neut % (Auto) (45-73) % Lymph % (Auto) (20-40) % Greenlee % (Auto) (2-11) % Eos % (Auto) (0-4) % Baso % (Auto) (0-2) % Lymph # (Auto) (1.2-4.9) X10*3/uL Greenlee # (Auto) (0.1-1.2) X10*3/uL Eos # (Auto) (0.0-0.4) X10*3/uL Baso # (Auto) (0.0-0.2) X10*3/uL Abs Immat Gran (auto) (0.00-0.03) X10*3/uL Absolute Neuts (auto) (2.0-8.3) X10*3/uL Absolute Nucleated RBC (0.0-0.012) X10*3/uL Nucleated RBC % (auto) (0.0-0.2) /100WBC Smear Tech's Comments PT (9.9-13.0) SEC INR (0.9-1.1) APTT (24.1-38.0) SEC Sodium (135-145) mmol/L Potassium (3.3-5.1) mmol/L Chloride (96-108) mmol/L Carbon Dioxide (22-29) mmol/L Anion Gap (12-20) BUN (9-16) mg/dL Creatinine (0.5-1.4) mg/dL Estim Creat Clear Calc Estimated GFR Random Glucose (60-115) mg/dL Lactic Acid (0.5-2.0) mmol/L Calcium (8.4-10.2) mg/dL Total Bilirubin (0.0-1.0) mg/dL AST (5-37) U/L ALT (0-40) U/L Alkaline Phosphatase (39-117) U/L Troponin I High Sens 136.6 H* (<3.5-35.0) ng/L B-Natriuretic Peptide 413 H (<100) pg/mL Total Protein (6.5-8.0) g/dL Albumin (3.5-5.0) g/dL COVID-19 ([facility]) (Negative) COVID-19 Clin Com ECG Data Attestation: I personally reviewed and interpreted this ECG as follows: Interpretation: Normal sinus rhythm heart rate 73 beats per minute prolonged QT interval to 517 left atrial enlargement no acute ST T wave changes no acute ischemia Discharge Plan Discharge Clinical Impression: Active substance abuse, Bacteremia, Non-ST elevation (NSTEMI) myocardial infarction Chronic leg pain Qualifiers: Laterality: bilateral Qualified Code(s): M79.604 - Pain in right leg Patient Disposition: Admitted As Inpatient
--- NOTE | 2021-07-06 01:13 | PC.NURSE ---
informing md jyothiwer of patients wbc and his troponin, provider promtly at bedside and orders for lactic blood cultures and antibotics.
[2021-07-06 01:16] LABS: COVID-19 Test Negative (Negative)
[2021-07-06 01:20] LABS: INTERNATIONAL NORM RATIO 2.4 (0.9-1.1); Prothrombin Time 27.4 SEC (9.9-13.0)
[2021-07-06] MEDS: Piperacillin Sodium/Tazobactam 3.375 GM in 0.9 % Sodium Chloride 50 ML IV (01:21)
[2021-07-06 01:22] LABS: Partial Thromboplastin Time 39.4 SEC (24.1-38.0)
[2021-07-06 01:23] LABS: Lactic Acid 1.1 mmol/L (0.5-2.0)
[2021-07-06 01:25] VITALS: BP 99/57; PULSE 79; RESP 17; TEMP 36.6; O2SAT 99
[2021-07-06 01:36] LABS: B Type Natriuretic Peptide 413 pg/mL (<100)
[2021-07-06 02:00] VITALS: BP 105/64; PULSE 70; RESP 16; O2SAT 97
[2021-07-06] MEDS: 0.9 % Sodium Chloride 1,000 ML 999 ML IVCONT (02:13)
[2021-07-06] MEDS: vancomycin HCL 1,000 MG in 0.9 % Sodium Chloride 250 ML 270 MG IV (02:13)
--- NOTE | 2021-07-06 03:15 | PC.NURSE ---
PT REFUSING REPEAT TROPONIN AT THIS TIME.
--- NOTE | 2021-07-06 03:44 | PC.NURSE ---
associate media director attempted to get blood from pt, pt became agitated swearing at tech, this web content writer and charge nurse present, pt calmed down and allowed tech to get his blood.
[2021-07-06 04:15] LABS: Troponin-I High Sensitivity 136.6 ng/L (<3.5-35.0)
--- NOTE | 2021-07-06 08:45 | PC.NURSE ---
pt awake eating breakfast. No complaints. Dr. Snowden at bedside.
--- NOTE | 2021-07-06 09:21 | P.HPHOSP_ITS ---
History of Present Illness Date of Service: 07/06/21 Chief Complaint: LE pain and edema 30M presented with one week of lower extremity pain, edema, and cough. patient has history of IVDA and partially treated endocarditis, pulmonary embolism. he had a tricuspid valve replacement. [place] March of 2021 [place] [facility] [place]a related to tricuspid stenosis. at that time he had some improvement but had left against medical advice. he reports edema only started to recur over past week, mostly in legs and abdomen, has been having pain and difficulty ambulating. he also reports a dry cough not associated with fever, chills, chest pain, or sick contacts. Review of Systems Review of Systems: Constitutional: Denies fever, denies Chills Eyes: denies blurry vision ENT: denies sore throat CVS: denies chest pain Respiratory: cough GI: distension : denies dysuria MSK: body aches Skin: denies rash Neuro: denies specific motor weakness Psych: denies suicidal ideation Endocrine: denies heat/cold intolerance Hematologic: denies easy bleeding Allergy: denies hives [facility] Medical History Anasarca Drug abuse and dependence Endocarditis HCV (hepatitis C virus) Pulmonary embolism Steatosis, liver Tricuspid valve stenosis Pertinent family history: patient unaware if any history of CAD Surgical History History of tricuspid valve replacement with bioprosthetic valve Social History Household Members: None Housing: Homeless Do you presently have visiting nurse or other home services: No Alcohol intake: never Patient Tobacco Use Status: Current everyday Tobacco user Tobacco use type: Cigarette Smoked in Last 30 Days: Yes Use of substances other than those prescribed or required for medical reasons: Yes Substance Use Type: Crack/Cocaine, Heroin, Marijuana and Opiates Substance Use Frequency: Daily Advance Directives: No service: No Current occupational status: unemployed Meds Allergies Allergy/AdvReac Type Severity Reaction Status Date / Time No Known Allergies Allergy Unverified 07/05/20 15:53 [No Known Allergies*] Active Medications: Current Medications Pharmacy Consult (Consult Rx Vancomycin Dosing) 1 each MISCELLANE DAILY PRN PRN Reason: Consult order Rivaroxaban (Rivaroxaban 20 Mg Tablet) 20 mg PO DAILY [facility] Sodium Chloride (0.9 % Sodium Chloride Flush 3 Ml Syringe) 3 ml IVFLUSH QSHIFT [facility] Home Medications Medication Instructions Recorded Confirmed Last Taken Type No Known Home Meds 07/06/21 07/06/21 Unknown History Physical Exam Vital Signs and Narrative: Vital Signs: Last Vital Signs Temp 97.9 F 07/06/21 01:25 Pulse 70 07/06/21 02:00 Resp 16 07/06/21 02:00 BP 105/64 07/06/21 02:00 Pulse Ox 97 07/06/21 02:00 Body Mass Index 23.3 General: agitated at times, does not appear to be in acute distress HEENT: atraumatic Neck: normal to visual inspection CVS: S1, S2, RRR Resp: CTA bilateral, normal rate Chest: non tender, anterior sternal scar GI: soft, non tender, mildly distended : no CVA tenderness Skin: no rashes Extremities: 2-3+ bilateral edema Neuro: Oriented X3, grossly intact Psych: cooperative Results Labs CBC and Chem 7: 07/06/21 00:09 07/06/21 00:09 Labs: Laboratory Results - last 24 hr 07/06/21 07/06/21 07/06/21 00:09 00:09 00:09 MCV 76.3 L MCH 25.3 L MCHC 33.1 RDW 23.7 H Plt Count 89 L D MPV Not Reportable Immature Gran % (Auto) 3.0 H Neut % (Auto) 76.7 H Lymph % (Auto) 12.4 L Roosevelt % (Auto) 7.1 Eos % (Auto) 0.5 Baso % (Auto) 0.3 Lymph # (Auto) 2.9 Roosevelt # (Auto) 1.7 H Eos # (Auto) 0.1 Baso # (Auto) 0.1 Abs Immat Gran (auto) 0.72 H Absolute Neuts (auto) 18.2 H Absolute Nucleated RBC 0.000 Nucleated RBC % (auto) 0.0 Smear Tech's Comments VERIFIED PT INR APTT Anion Gap 11 L Estim Creat Clear Calc 88.7 Estimated GFR > 60 Random Glucose 84 Lactic Acid Calcium 7.7 L D Total Bilirubin 5.2 H AST 25 ALT 22 Alkaline Phosphatase 176 H Troponin I High Sens 152.9 H* B-Natriuretic Peptide Total Protein 5.1 L Albumin 2.2 L COVID-19 ([facility]) COVID-19 Clin Com 07/06/21 07/06/21 07/06/21 00:56 01:09 01:09 MCV MCH MCHC RDW Plt Count MPV Immature Gran % (Auto) Neut % (Auto) Lymph % (Auto) Roosevelt % (Auto) Eos % (Auto) Baso % (Auto) Lymph # (Auto) Roosevelt # (Auto) Eos # (Auto) Baso # (Auto) Abs Immat Gran (auto) Absolute Neuts (auto) Absolute Nucleated RBC Nucleated RBC % (auto) Smear Tech's Comments PT 27.4 H INR 2.4 H APTT 39.4 H Anion Gap Estim Creat Clear Calc Estimated GFR Random Glucose Lactic Acid 1.1 Calcium Total Bilirubin AST ALT Alkaline Phosphatase Troponin I High Sens B-Natriuretic Peptide Total Protein Albumin COVID-19 ([facility]) Negative COVID-19 Clin Com See Note 07/06/21 07/06/21 01:09 03:47 MCV MCH MCHC RDW Plt Count MPV Immature Gran % (Auto) Neut % (Auto) Lymph % (Auto) Roosevelt % (Auto) Eos % (Auto) Baso % (Auto) Lymph # (Auto) Roosevelt # (Auto) Eos # (Auto) Baso # (Auto) Abs Immat Gran (auto) Absolute Neuts (auto) Absolute Nucleated RBC Nucleated RBC % (auto) Smear Tech's Comments PT INR APTT Anion Gap Estim Creat Clear Calc Estimated GFR Random Glucose Lactic Acid Calcium Total Bilirubin AST ALT Alkaline Phosphatase Troponin I High Sens 136.6 H* B-Natriuretic Peptide 413 H Total Protein Albumin COVID-19 ([facility]) COVID-19 Clin Com Imaging Radiologist's Impressions: Impressions Chest X-Ray 07/06/21 01:10 IMPRESSION: No acute cardiopulmonary findings. Assessment and Plan (1) Anasarca: Status: Acute (2) Active substance abuse: Status: Acute (3) Pulmonary embolism: Status: Acute (4) Tricuspid valve stenosis: Status: Acute 30M presented with painful lower extremity edema, cough anasarca due to tricuspid stenosis IV lasix cardio eval monitor electrolytes closely elevated troponin without chest pain or EKG changes cardio eval does not appear to be ACS leukocysotis no evidence of sepsis will hold off on antibiotics for now, at risk for bactermia, follow up cultures history of pulmnoary embolism restart xarelto liver disease with splenomegaly, thrombocytopenia due to HCV and liver congestion outpatient follow up for HCV polysubstance dependence opiates, cocaine addiction team eval QT prolongation check Magnesium monitor on tele avoid qt prolonging meds for now Quality Stroke Does the patient have a stroke diagnosis?: No VTE Prior VTE?: Yes VTE Risk Level:: Medical - moderate - high VTE Device Contraindication: Treatment Not Indicated VTE Drug Contraindication: N/A - Med Ordered
[2021-07-06 10:10] LABS: Magnesium 1.8 mg/dL (1.6-2.6)
--- NOTE | 2021-07-06 10:24 | PC.NURSE ---
pt requests sandwich and something to drink. pleasant, resting on and off. urine obtained.
[2021-07-06 10:55] LABS: Amphetamine Screen Urine Not Detected (Not Detect); Barbiturates, Urine Not Detected (Not Detect); Benzodiazepines Screen Urine Not Detected (Not Detect); Cannabinoid Screen Urine Not Detected (Not Detect); Cocaine Screen Urine POSITIVE (Not Detect); Fentanyl, urine POSITIVE (Not Detect); Opiate Screen Urine POSITIVE (Not Detect); Phencyclidine Screen Urine Not Detected (Not Detect)
[2021-07-06 11:35] VITALS: BP 96/53; PULSE 84; RESP 18; TEMP 36.8; O2SAT 97
--- NOTE | 2021-07-06 11:53 | PM.CNCAR ---
History of Present Illness History of Present Illness Date of Service: 07/06/21 Requesting physician: Gaurav Snowden Chief complaint: Lower extremity edema/pain, tricuspid stenosis Narrative: 31-year-old gentleman with background history of IV drug abuse with previous endocarditis of the tricuspid valve underwent tricuspid valve replacement. He presented in March 2021 with for substance abuse and withdrawal and was noticed to be in right heart failure at that time. He underwent echocardiography which was limited because of his poor cooperation but showed evidence of tricuspid valve stenosis with mean gradient causative cusp valve of 9 mm Hg. It appears he left and now presented again with leg edema and pain. Is positive for cocaine, opiates. He said he was injecting heroin. He is saying his withdrawing from her right now. He has peripheral edema. Cultures are pending. [facility] Past Medical History Medical History Anasarca Drug abuse and dependence Endocarditis HCV (hepatitis C virus) Pulmonary embolism Steatosis, liver Tricuspid valve stenosis Surgical History Surgical History History of tricuspid valve replacement with bioprosthetic valve Social History Social History Household Members: None Housing: Homeless Do you presently have visiting nurse or other home services: No Alcohol intake: never Patient Tobacco Use Status: Current everyday Tobacco user Tobacco use type: Cigarette Smoked in Last 30 Days: Yes Use of substances other than those prescribed or required for medical reasons: Yes Substance Use Type: Crack/Cocaine, Heroin, Marijuana and Opiates Substance Use Frequency: Daily Advance Directives: No service: No Current occupational status: unemployed Meds Allergies Allergy/AdvReac Type Severity Reaction Status Date / Time No Known Allergies Allergy Unverified 07/05/20 15:53 [No Known Allergies*] Active Medications: Current Medications Furosemide (Furosemide 40 Mg/4 Ml Vial) 40 mg IVPUSH BID@0900,1800 CRISTINA; Protocol Hydromorphone HCl (Hydromorphone Hcl 0.5 Mg/0.5 Ml Syringe) 0.5 mg IVPUSH Q2H PRN; Protocol PRN Reason: withdrawal Pharmacy Consult (Consult Rx Vancomycin Dosing) 1 each MISCELLANE DAILY PRN PRN Reason: Consult order Rivaroxaban (Rivaroxaban 20 Mg Tablet) 20 mg PO DAILY [facility] Sodium Chloride (0.9 % Sodium Chloride Flush 3 Ml Syringe) 3 ml IVFLUSH QSHIFT [facility] Home Medications Medication Instructions Recorded Confirmed Last Taken Type No Known Home Meds 07/06/21 07/06/21 Unknown History Physical Exam Vital Signs: Vital Signs: Last Vital Signs Temp 98.2 F 07/06/21 11:35 Pulse 84 07/06/21 11:35 Resp 18 07/06/21 11:35 BP 96/53 L 07/06/21 11:35 Pulse Ox 97 07/06/21 11:35 Body Mass Index 23.3 GENERAL APPEARANCE: Ill-appearing. Distressed due to Leg pain.. NECK: Distended neck veins, positive hepatojugular reflux. HEART: Diastolic murmur left sternal border., regular rate and rhythm. LUNGS: clear to auscultation bilaterally. ABDOMEN: soft, nontender. Mildly distended. EXTREMITIES: 2+ edema. PERIPHERAL PULSES: equal. NEUROLOGIC: No gross deficits, AAO X 3 Results Labs and Meds Result diagrams: 07/06/21 00:09 07/06/21 00:09 Lab results: Laboratory Results - last 24 hr 07/06/21 07/06/21 07/06/21 00:09 00:09 00:09 WBC 23.7 H RBC 3.80 L Hgb 9.6 L Hct 29.0 L D MCV 76.3 L MCH 25.3 L MCHC 33.1 RDW 23.7 H Plt Count 89 L D MPV Not Reportable Immature Gran % (Auto) 3.0 H Neut % (Auto) 76.7 H Lymph % (Auto) 12.4 L Elliott % (Auto) 7.1 Eos % (Auto) 0.5 Baso % (Auto) 0.3 Lymph # (Auto) 2.9 Elliott # (Auto) 1.7 H Eos # (Auto) 0.1 Baso # (Auto) 0.1 Abs Immat Gran (auto) 0.72 H Absolute Neuts (auto) 18.2 H Absolute Nucleated RBC 0.000 Nucleated RBC % (auto) 0.0 Smear Tech's Comments VERIFIED PT INR APTT Sodium 134 L Potassium 3.6 D Chloride 105 Carbon Dioxide 22 Anion Gap 11 L BUN 18 H Creatinine 1.04 Estim Creat Clear Calc 88.7 Estimated GFR > 60 Random Glucose 84 Lactic Acid Calcium 7.7 L D Magnesium 1.8 Total Bilirubin 5.2 H AST 25 ALT 22 Alkaline Phosphatase 176 H Troponin I High Sens 152.9 H* B-Natriuretic Peptide Total Protein 5.1 L Albumin 2.2 L Urine Opiates Screen Urine Fentanyl Screen Ur Barbiturates Screen Ur Phencyclidine Scrn Ur Amphetamines Screen U Benzodiazepines Scrn Urine Cocaine Screen U Marijuana (THC) Screen COVID-19 ([facility]) COVID-19 Clin Com 07/06/21 07/06/21 07/06/21 00:56 01:09 01:09 WBC RBC Hgb Hct MCV MCH MCHC RDW Plt Count MPV Immature Gran % (Auto) Neut % (Auto) Lymph % (Auto) Elliott % (Auto) Eos % (Auto) Baso % (Auto) Lymph # (Auto) Elliott # (Auto) Eos # (Auto) Baso # (Auto) Abs Immat Gran (auto) Absolute Neuts (auto) Absolute Nucleated RBC Nucleated RBC % (auto) Smear Tech's Comments PT 27.4 H INR 2.4 H APTT 39.4 H Sodium Potassium Chloride Carbon Dioxide Anion Gap BUN Creatinine Estim Creat Clear Calc Estimated GFR Random Glucose Lactic Acid 1.1 Calcium Magnesium Total Bilirubin AST ALT Alkaline Phosphatase Troponin I High Sens B-Natriuretic Peptide Total Protein Albumin Urine Opiates Screen Urine Fentanyl Screen Ur Barbiturates Screen Ur Phencyclidine Scrn Ur Amphetamines Screen U Benzodiazepines Scrn Urine Cocaine Screen U Marijuana (THC) Screen COVID-19 ([facility]) Negative COVID-19 Clin Com See Note 07/06/21 07/06/21 07/06/21 01:09 03:47 10:12 WBC RBC Hgb Hct MCV MCH MCHC RDW Plt Count MPV Immature Gran % (Auto) Neut % (Auto) Lymph % (Auto) Elliott % (Auto) Eos % (Auto) Baso % (Auto) Lymph # (Auto) Elliott # (Auto) Eos # (Auto) Baso # (Auto) Abs Immat Gran (auto) Absolute Neuts (auto) Absolute Nucleated RBC Nucleated RBC % (auto) Smear Tech's Comments PT INR APTT Sodium Potassium Chloride Carbon Dioxide Anion Gap BUN Creatinine Estim Creat Clear Calc Estimated GFR Random Glucose Lactic Acid Calcium Magnesium Total Bilirubin AST ALT Alkaline Phosphatase Troponin I High Sens 136.6 H* B-Natriuretic Peptide 413 H Total Protein Albumin Urine Opiates Screen POSITIVE H Urine Fentanyl Screen POSITIVE H Ur Barbiturates Screen Not Detected Ur Phencyclidine Scrn Not Detected Ur Amphetamines Screen Not Detected U Benzodiazepines Scrn Not Detected Urine Cocaine Screen POSITIVE H U Marijuana (THC) Screen Not Detected COVID-19 ([facility]) COVID-19 Clin Com Imaging Radiologist's impression: Impressions Chest X-Ray 07/06/21 01:10 IMPRESSION: No acute cardiopulmonary findings. Assessment and Plan (1) Tricuspid valve stenosis: Status: Acute (2) Anasarca: Status: Acute (3) Pulmonary embolism: Status: Acute 30-year-old gentleman with complex medical issues including polysubstance abuse with previous tricuspid valve endocarditis for which he underwent tricuspid valve replacement presenting with lower extremity edema and echocardiography recently performed showing tricuspid valve stenosis. He has been actively using drugs. He is withdrawing from heroin right now. He has edema and is quite ill appearing. His blood workup is fairly abnormal at this point. I think we should repeat his echocardiogram. Repeat blood cultures. Etiology of tricuspid valve stenosis unclear but can be thrombotic versus infective endocarditis. He needs to be started on diuretics. Continue anticoagulation for previous PEs. We will follow along. Thank you for allowing me to participate in the care of your patient. Please feel free to contact me if you have any questions. Procedures Date of Service Date of Service: 07/06/21
[2021-07-06] MEDS: HYDROmorphone HCl 0.5 MG/0.5 ML SYRINGE IVPUSH ×2 (13:03→20:26)
--- NOTE | 2021-07-06 13:21 | PC.NURSE ---
Patient becoming verbally aggressive with this RN, reporting he wants something for withdrawal and Dilaudid is not helping. Hospitalist riya texted.
[2021-07-06] MEDS: methADONE HCl 20 MG/2 ML ORAL.CONC PO (14:17)
[2021-07-06 14:19] VITALS: BP 105/67; PULSE 89; RESP 16; O2SAT 98
--- NOTE | 2021-07-06 14:47 | PC.NURSE ---
Patient calm cooperative at this time. Pending admission bed.
--- NOTE | 2021-07-06 16:34 | PC.NURSE ---
Patient sleeping in NAD, breathing even and unlabored. pending admission bed.
[2021-07-06] MEDS: Furosemide 20 MG/2 ML VIAL IVPUSH (20:25)
[2021-07-06] MEDS: Acetaminophen 325 MG TABLET 650 MG PO (22:17)
[2021-07-07 01:17] VITALS: BP 115/65; PULSE 108; RESP 22; TEMP 37.2; O2SAT 95
[2021-07-07] MEDS: 0.9 % Sodium Chloride Flush 3 ML SYRINGE IVFLUSH ×3 (01:25→20:58)
[2021-07-07] MEDS: HYDROmorphone HCl 0.5 MG/0.5 ML SYRINGE IVPUSH ×2 (01:25→20:18)
--- NOTE | 2021-07-07 04:49 | PC.NURSE ---
pt is currently asleep, respirations even and unlabored, pt awaiting room alignment
[2021-07-07 06:07] VITALS: BP 103/62; PULSE 87; RESP 16; O2SAT 98
[2021-07-07 07:18] LABS: Hemoglobin 10.7 g/dl (14.0-18.0); Mean Corpuscular HGB Conc 33.4 g/dl (31.0-36.0); Mean Corpuscular Hemoglobin 25.6 pg (27.0-33.0); Mean Corpuscular Volume 76.6 fL (80-98); Platelet Count 103 X10*3/uL (160-400); Red Blood Count 4.18 X10*6/uL (4.60-5.80); Red Cell Distribution Width 23.8 % (11.0-16.0); White Blood Count 22.1 X10*3/uL (4.8-10.8)
[2021-07-07 07:59] LABS: Anion Gap 10 (12-20); Blood Urea Nitrogen 16 mg/dL (9-16); Calcium 7.3 mg/dL (8.4-10.2); Carbon Dioxide 21 mmol/L (22-29); Chloride 107 mmol/L (96-108); Creatinine Clr Calc Pharmacy 86.2; Estimated Glomerular Filt Rate > 60; Glucose Random 86 mg/dL (60-115); Potassium 3.7 mmol/L (3.3-5.1); Sodium 134 mmol/L (135-145)
[2021-07-07] MEDS: Furosemide 20 MG/2 ML VIAL IVPUSH (08:04)
[2021-07-07] MEDS: methADONE HCl 20 MG/2 ML ORAL.CONC PO (08:05)
--- NOTE | 2021-07-07 08:09 | PHA.PROG ---
Admission Date/Time: July 06, 2021 09:19 Indication: BACTEREMIA Weight in k.503 kg Adjusted body weight in K.5 [place] body weight in K.5 Obesity Dosing Indication % IBW: Serum Creatinine - Last 168 Hours 07/06/21 07/07/21 00:09 06:47 Creatinine 1.04 1.07 Estimated CrCl and GFR - Last 168 Hours 07/06/21 07/07/21 00:09 06:47 Estim Creat Clear Calc 88.7 86.2 Estimated GFR > 60 > 60 Vancomycin Loading Dose: N/A Current Vancomycin Dosing Regimen: 750 MG Q12H Vancomycin Monitoring using AUC goal of 400 - 600 range with trough as surrogate marker: PREDICTED AUC 415, PREDICTED TROUGH 12.8 Date and Time for next Vancomycin Level to be drawn: 07/08/21 @1999 Pharmacist Comments on Vancomycin Plan: 1ST DOSE OF 1000 MG GIVEN IN ED >24H AGO. Vancomycin dosing will take advantage of [employer] as a clinical decision support tool that uses Bayesian modeling to calculate individual patient's pharmacokinetic parameters and forecast the patient's drug concentration time course with the target goal AUC 24 range of 400 - 600 mg/L/hr.
[2021-07-07] MEDS: Rivaroxaban 20 MG TABLET PO (08:59)
[2021-07-07] MEDS: vancomycin HCL 750 MG in 0.9 % Sodium Chloride 250 ML 265 MG IV (08:59)
--- NOTE | 2021-07-07 10:51 | P.PNIM_ITS ---
Subjective Subjective Date of Service: 07/07/21 Interval History: cc: leg pain and swelling interval history: still with pain and swelling, now with withdrawal symtpoms Cardiovascular Cardiovascular: Reports no additional cardiovascular complaints Respiratory Respiratory: Reports no additional respiratory complaints Physical Exam Vital Signs: Vital Signs: Last Vital Signs Temp 98.9 F 07/07/21 01:17 Pulse 87 07/07/21 06:07 Resp 16 07/07/21 06:07 BP 103/62 07/07/21 06:07 Pulse Ox 98 07/07/21 06:07 Body Mass Index 23.3 General: AO X 3, in pain, ill appearing Resp: CTA bilateral, no accessory muscles used CVS: S1,S2,RRR, 2+ edema GI: soft, non tender, non distended Neuro: motor grossly intact, alert Psych: appropriate affect, appropriate insight Objective Data Active Medications Acetaminophen (Acetaminophen 325 Mg Tablet) 650 mg PO Q6H PRN PRN Reason: pain Last Admin: 07/06/21 22:17 Dose: 650 mg Documented by: VERA Furosemide (Furosemide 20 Mg/2 Ml Vial) 20 mg IVPUSH DAILY [facility]; Protocol Last Admin: 07/07/21 08:04 Dose: 20 mg Documented by: LY Hydromorphone HCl (Hydromorphone Hcl 0.5 Mg/0.5 Ml Syringe) 0.5 mg IVPUSH Q4H PRN; Protocol PRN Reason: pain Last Admin: 07/07/21 01:25 Dose: 0.5 mg Documented by: JEOVANY Vancomycin HCl 750 mg/ Sodium (Chloride) 265 mls @ 265 mls/hr IV Q12H [facility] Last Admin: 07/07/21 08:59 Dose: 265 mls/hr Documented by: LY Methadone HCl (Methadone Hcl 20 Mg/2 Ml Oral.Conc) 20 mg PO DAILY [facility] Last Admin: 07/07/21 08:05 Dose: 20 mg Documented by: LY Pharmacy Consult (Consult Rx Vancomycin Dosing) 1 each MISCELLANE DAILY PRN PRN Reason: Consult order Rivaroxaban (Rivaroxaban 20 Mg Tablet) 20 mg PO DAILY [facility] Last Admin: 07/07/21 08:59 Dose: 20 mg Documented by: LY Sodium Chloride (0.9 % Sodium Chloride Flush 3 Ml Syringe) 3 ml IVFLUSH QSHIFT [facility] Last Admin: 07/07/21 08:05 Dose: 3 ml Documented by: LY Labs CBC & Chem 7: 07/07/21 06:47 07/07/21 06:47 Labs: Laboratory Results - last 24 hr 07/06/21 07/07/21 07/07/21 10:12 06:47 06:47 MCV 76.6 L MCH 25.6 L MCHC 33.4 RDW 23.8 H Plt Count 103 L MPV Not Reportable Absolute Nucleated RBC 0.000 Nucleated RBC % (auto) 0.0 Anion Gap 10 L Estim Creat Clear Calc 86.2 Estimated GFR > 60 Random Glucose 86 Calcium 7.3 L Urine Opiates Screen POSITIVE H Urine Fentanyl Screen POSITIVE H Ur Barbiturates Screen Not Detected Ur Phencyclidine Scrn Not Detected Ur Amphetamines Screen Not Detected U Benzodiazepines Scrn Not Detected Urine Cocaine Screen POSITIVE H U Marijuana (THC) Screen Not Detected Microbiology Microbiology Results: Microbiology 07/06/21 01:09 Blood Culture - Preliminary Blood - Venous Prelim: GPC Gram Stain only 07/06/21 01:11 Blood Culture - Preliminary Blood - Venous No growth after 24 hours. Assessment and Plan (1) Steatosis, liver: Status: Acute (2) HCV (hepatitis C virus): Status: Acute (3) Pulmonary embolism: Status: Acute (4) Tricuspid valve stenosis: Status: Acute (5) Anasarca: Status: Acute Assessment and Plan: 30M presented with painful lower extremity edema, cough anasarca due to tricuspid stenosis IV lasix cardio following monitor electrolytes closely leukocytosis no evidence of sepsis 1/2 growing GPC in chains started vanco, follow up species history of pulmnoary embolism restarted xarelto liver disease with splenomegaly, thrombocytopenia due to HCV and liver congestion outpatient follow up for HCV monitor lfts polysubstance dependence opiates, cocaine addiction team eval started methadone, continue dilaudid for pain QT prolongation improved monitor on tele Quality Stroke Does the patient have a stroke diagnosis?: No VTE Prior VTE?: Yes VTE Risk Level:: Medical - moderate - high VTE Device Contraindication: Treatment Not Indicated VTE Drug Contraindication: N/A - Med Ordered
--- NOTE | 2021-07-07 11:22 | PM.PNCARD ---
Subjective Subjective Date of Service: 07/07/21 Interval history: Complaining leg pain. Review of Systems Review of Systems Leg pain Physical Exam Vital Signs: Last Vital Signs Temp 98.9 F 07/07/21 01:17 Pulse 87 07/07/21 06:07 Resp 16 07/07/21 06:07 BP 103/62 07/07/21 06:07 Pulse Ox 98 07/07/21 06:07 Body Mass Index 23.3 ?GENERAL APPEARANCE: ? Ill-appearing. NECK:?JVD+ HEART:? Diastolic murmur left sternal border., regular rate and rhythm. LUNGS: clear to auscultation bilaterally. ABDOMEN: soft, nontender. ? Mildly distended. EXTREMITIES:? 1-2+edema. PERIPHERAL PULSES: equal. NEUROLOGIC: No gross deficits, AAO X 3 Results Labs and Meds Result diagrams: 07/07/21 06:47 07/07/21 06:47 Lab results: Laboratory Results - last 24 hr 07/07/21 07/07/21 06:47 06:47 WBC 22.1 H RBC 4.18 L Hgb 10.7 L Hct 32.0 L MCV 76.6 L MCH 25.6 L MCHC 33.4 RDW 23.8 H Plt Count 103 L MPV Not Reportable Absolute Nucleated RBC 0.000 Nucleated RBC % (auto) 0.0 Sodium 134 L Potassium 3.7 Chloride 107 Carbon Dioxide 21 L Anion Gap 10 L BUN 16 Creatinine 1.07 Estim Creat Clear Calc 86.2 Estimated GFR > 60 Random Glucose 86 Calcium 7.3 L Progress Note: A&P Assessment and plan (1) Pulmonary embolism: Status: Acute (2) Tricuspid valve stenosis: Status: Acute (3) Anasarca: Status: Acute Assessment and Plan: 30-year-old gentleman with background of IV drug abuse and 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 In March he presented to us with symptoms signs of right-sided heart failure. By echocardiography at that time he had tricuspid valve stenosis. He also was diagnosed with pulmonary emboli. His returning now with leg edema and pain in the legs. One of his blood cultures is positive. He is actively using drugs. He has been restarted on anticoagulation. Etiology of tricuspid stenosis unclear. It can related to endocarditis and can also be thrombotic. In any case we will repeat echocardiography tomorrow. Continue anticoagulation as before. Started on low-dose diuretics. Please monitor I's and O's and electrolytes closely. Thank you for allowing me to participate in the care of your patient. Please feel free to contact me if you have any questions. Fall Risk Details Current Medications: Current Medications Acetaminophen (Acetaminophen 325 Mg Tablet) 650 mg PO Q6H PRN PRN Reason: pain Last Admin: 07/06/21 22:17 Dose: 650 mg Documented by: Furosemide (Furosemide 20 Mg/2 Ml Vial) 20 mg IVPUSH DAILY [facility]; Protocol Last Admin: 07/07/21 08:04 Dose: 20 mg Documented by: Hydromorphone HCl (Hydromorphone Hcl 0.5 Mg/0.5 Ml Syringe) 0.5 mg IVPUSH Q4H PRN; Protocol PRN Reason: pain Last Admin: 07/07/21 01:25 Dose: 0.5 mg Documented by: Vancomycin HCl 750 mg/ Sodium (Chloride) 265 mls @ 265 mls/hr IV Q12H [facility] Last Admin: 07/07/21 08:59 Dose: 265 mls/hr Documented by: Methadone HCl (Methadone Hcl 20 Mg/2 Ml Oral.Conc) 20 mg PO DAILY [facility] Last Admin: 07/07/21 08:05 Dose: 20 mg Documented by: Pharmacy Consult (Consult Rx Vancomycin Dosing) 1 each MISCELLANE DAILY PRN PRN Reason: Consult order Rivaroxaban (Rivaroxaban 20 Mg Tablet) 20 mg PO DAILY [facility] Last Admin: 07/07/21 08:59 Dose: 20 mg Documented by: Sodium Chloride (0.9 % Sodium Chloride Flush 3 Ml Syringe) [address] [facility] Last Admin: 07/07/21 08:05 Dose: 3 ml Documented by: Time Spent With Patient Time: Total time spent is greater than 50% in coordination of care (as documented) at patient's floor/unit and/or counseling patient: Time with patient: 15 - 24 minutes Progress Note: Quality Stroke Does the patient have a stroke diagnosis?: No Procedures Date of Service Date of Service: 07/07/21
--- NOTE | 2021-07-07 14:23 | PC.NURSE ---
PT IS EXTREMELY RUDE, KEEPS CALLING STAFF IDIOTS AND WE DON'T KNOW WHAT WERE DOING ALL OF PATIENTS REQUESTS HAVE BEEN COMPLECTED IN A TIMELY MANOR PT REFUSES TO DO ANYTHING FOR HIMSELF. MEDS GIVEN ORDERED MEALS GIVEN OFFERED TOILETING PT REFUSED TO GET OUT OF BED TO USE THE BATHROOM. CURRENTLY ASKING TO TALK TO PROVIDER HE WANTS TO LEAVE. PROVIDER HAS BEEN CONTACTED VIA TIGER TEXT.
--- NOTE | 2021-07-07 18:26 | PC.NURSE ---
ATTEMPTED TO CALL [facility] FOR ADMISSION TRANSFER, AWAITING RN CALL BACK
--- NOTE | 2021-07-07 19:30 | PC.NURSE ---
REPORT GIVEN FOR ADMISSION
[2021-07-07 20:00] VITALS: BP 131/58; PULSE 104; RESP 18; TEMP 37.9; O2SAT 98
[2021-07-07] MEDS: vancomycin HCL 750 MG in 0.9 % Sodium Chloride 250 ML 250 MG IV (20:18)
[2021-07-07] MEDS: LORazepam 2 MG/ML VIAL 0.5 MG IVPUSH (20:58)
[2021-07-08 06:58] VITALS: BP 117/74; PULSE 80; RESP 18; TEMP 37.2; O2SAT 96
--- NOTE | 2021-07-08 08:30 | CA_ITS ---
Transthoracic Echocardiogram Patient (Last, First, Middle): Norberto Marquez, Gender: Male Date of : 1990 Age: 30 Procedure Date: 07/08/2021 Procedure Type: Transthoracic Echocardiogram Location: [facility] [place] Height: 165.1 cm Weight: 63.5 kg BSA: 1.70 m2 Heart Rate: bpm BP: 117 / 74 mmHg Gemologist: DAGOBERTO Alvarez MD: Gaurav Snowden MD Student Financial Aid Manager: Clyde Delaney MD Symptoms: tricuspid stenosis Study Quality: Good ECG Rhythm: Sinus Conclusions: - 1. Severe thickening of bioprosthetic tricuspid valve with a mobile vegetation with severe stenosis of the valve with mean gradient of 13 mm of mercury 2. Normal LV systolic function 3. Trivial pericardial effusion Findings Left Ventricle Normal left ventricular size, thickness, and systolic function. The visually estimated ejection fraction is between 55-60%. Right Ventricle Normal right ventricular cavity size and systolic function. Atria The left atrium is normal in size. There is no evidence of interatrial shunt. The right atrium is severely dilated. Aortic Valve Normal aortic valve structure and function. There is no aortic valve stenosis. There is no aortic valve regurgitation. Mitral Valve Normal mitral valve structure and function. There is trace mitral valve regurgitation. There is no mitral valve stenosis. Pulmonic Valve The pulmonic valve was not well visualized. Tricuspid Valve A bioprosthetic tricuspid valve is present. The prosthetic tricuspid valve appears to be functioning abnormally. Echo findings are consistent with stenosis of the tricuspid valve prosthesis. Gradients across the prosthetic tricuspid valve are abnormal. There is severe tricuspid valve stenosis. Mean tricuspid gradient is 13 mmHg. There is severe thickening of the entire leaflet structure and the base of the struts, could represent pannus formation and/or infectious thickening. There is also a mobile mass within the entire apparatus, maximum diameter of 1.5 cm consistent with a vegetation. Great Vessels All visible segments of the aorta are normal in size. Venous The inferior vena cava is normal in size and collapses less than 50% with inspiration. Pericardium/Pleural There is a trivial pericardial effusion. Prior Study Comparison Significant changes compared to prior study dated: 04/17/2021. stenosis of the tricuspid valve is worse with mean gradient of 13 mm of mercury as well as vegetation noted on the bioprosthetic tricuspid valve. Findings discussed with Dr. Snowden Measurements 2D Linear Measurements IVSd: 1.06 0.6-0.9/0.6-1.0 cm LVIDd: 4.29 3.9-5.3/4.2-5.9 cm LVIDd Index: 2.52 2.4-3.2/2.2-3.1 cm/m2 LVIDs: 2.96 2.0-3.6 cm LVPWd: 1.19 0.7-1.1 cm LV Mass: 208.80 67-162/88-224 g LV Mass Index: 122.83 43-95/49-115 g/m2 Tricuspid Valve TV Pk Dalton: 2.41 TV Mn Dalton: 1.73 TV Pk Grad: 23.00 TV Mn Grad: 13.00 TR Pk Dalton: 2.54 TR Pk Grad: 26.00 RA Press: 8.00 RVSP: 34.00 Updated in Other Vendor System with Status of Final Clyde Delaney MD electronically signed on 07/08/2021 12:50:21 PM with status of Final
[2021-07-08] MEDS: vancomycin HCL 750 MG in 0.9 % Sodium Chloride 250 ML 265 MG IV (09:16)
[2021-07-08] MEDS: 0.9 % Sodium Chloride Flush 3 ML SYRINGE IVFLUSH (09:17)
[2021-07-08] MEDS: Furosemide 20 MG/2 ML VIAL IVPUSH (09:20)
--- NOTE | 2021-07-08 09:58 | MHC.CM.PN ---
met with pt who was reluctant to speak with this worker ,pt does want to do a hcp but not at this time..dc plan tb e likely dye to the streets with a chcf list
[2021-07-08 11:01] VITALS: BP 117/75; PULSE 110; RESP 18; TEMP 35.5; O2SAT 96
--- NOTE | 2021-07-08 11:12 | P.PNIM_ITS ---
Subjective Subjective Date of Service: 07/08/21 Interval History: cc: leg edema and pain interval history: edema improved, pain improved Cardiovascular Cardiovascular: Reports no additional cardiovascular complaints Respiratory Respiratory: Reports no additional respiratory complaints Physical Exam Vital Signs: Vital Signs: Last Vital Signs Temp 96 F L 07/08/21 11:01 Pulse 110 H 07/08/21 11:01 Resp 18 07/08/21 11:01 BP 117/75 07/08/21 11:01 Pulse Ox 96 07/08/21 11:01 Body Mass Index 23.3 General: AO X 3, in pain, ill appearing Resp:? CTA bilateral, no accessory muscles used CVS: S1,S2,RRR, trace edema GI: soft, non tender, non distended Neuro:? motor grossly intact, alert Psych: appropriate affect, appropriate insight? Objective Data Active Medications Acetaminophen (Acetaminophen 325 Mg Tablet) 650 mg PO Q6H PRN PRN Reason: pain Last Admin: 07/06/21 22:17 Dose: 650 mg Documented by: VERA Furosemide (Furosemide 20 Mg/2 Ml Vial) 20 mg IVPUSH DAILY [facility]; Protocol Last Admin: 07/08/21 09:20 Dose: 20 mg Documented by: KAIDEN Hydromorphone HCl (Hydromorphone Hcl 0.5 Mg/0.5 Ml Syringe) 0.5 mg IVPUSH Q4H PRN; Protocol PRN Reason: pain Last Admin: 07/07/21 20:18 Dose: 0.5 mg Documented by: DAMIAN Vancomycin HCl 750 mg/ Sodium (Chloride) 265 mls @ 265 mls/hr IV Q12H [facility] Last Infusion: 07/08/21 10:42 Dose: 0 mls/hr Documented by: KAIDEN Methadone HCl (Methadone Hcl 20 Mg/2 Ml Oral.Conc) 20 mg PO DAILY [facility] Last Admin: 07/07/21 08:05 Dose: 20 mg Documented by: LY Pharmacy Consult (Consult Rx Vancomycin Dosing) 1 each MISCELLANE DAILY PRN PRN Reason: Consult order Rivaroxaban (Rivaroxaban 20 Mg Tablet) 20 mg PO DAILY [facility] Last Admin: 07/07/21 08:59 Dose: 20 mg Documented by: LY Sodium Chloride (0.9 % Sodium Chloride Flush 3 Ml Syringe) 3 ml IVFLUSH QSHIFT [facility] Last Admin: 07/08/21 09:17 Dose: 3 ml Documented by: KAIDEN Labs CBC & Chem 7: 07/07/21 06:47 07/07/21 06:47 Microbiology Microbiology Results: Microbiology 07/06/21 01:11 Blood Culture - Preliminary Blood - Venous Gram positive cocci 07/06/21 01:09 Blood Culture - Preliminary Blood - Venous Prelim: GPC Gram Stain only Assessment and Plan (1) Steatosis, liver: Status: Acute (2) HCV (hepatitis C virus): Status: Acute (3) Pulmonary embolism: Status: Acute (4) Tricuspid valve stenosis: Status: Acute (5) Anasarca: Status: Acute Assessment and Plan: 30M presented with painful lower extremity edema, cough anasarca due to tricuspid stenosis of bioprosthetic valve improving on iv lasix cardio following monitor electrolytes closely gram postive bacteremia GPC in chains 11/20 follow up echo, repeat cultures, ID started vanco history of pulmnoary embolism restarted xarelto liver disease with splenomegaly, thrombocytopenia due to HCV and liver congestion outpatient follow up for HCV monitor lfts polysubstance dependence opiates, cocaine addiction team eval started methadone, continue dilaudid for pain QT prolongation improved monitor on tele Quality Stroke Does the patient have a stroke diagnosis?: No VTE Prior VTE?: Yes VTE Risk Level:: Medical - moderate - high VTE Device Contraindication: Treatment Not Indicated VTE Drug Contraindication: N/A - Med Ordered
--- NOTE | 2021-07-08 11:49 | P.PNCA_ITS ---
Subjective Subjective Date of Service: 07/08/21 <ELVIRA Hi - Last Filed: 07/08/21 12:15> 07/08/21 <Clyde Delaney MD - Last Filed: 07/08/21 12:29> Principal diagnosis: Tricuspid valve stenosis, IV drug use, bacteremia, right heart failure <ELVIRA Hi - Last Filed: 07/08/21 12:15> Interval history: Cardiology follow up for the above. Seen at 0830. Today he is sleepy but arousable with verbal stimuli. He nods yes when asked if he feels sob. No chest discomfort or palpitations. Already at breakfast. No abdominal discomfort. Swelling less than admit. Slept well. <ELVIRA Hi - Last Filed: 07/08/21 12:15> Review of Systems Review of Systems as above <ELVIRA Hi - Last Filed: 07/08/21 12:15> Yes all other systems are reviewed and are negative <ELVIRA Hi - Last Filed: 07/08/21 12:15> Physical Exam Vital Signs: Last Vital Signs Temp 96 F L 07/08/21 11:01 Pulse 110 H 07/08/21 11:01 Resp 18 07/08/21 11:01 BP 117/75 07/08/21 11:01 Pulse Ox 96 07/08/21 11:01 Body Mass Index 23.3 <ELVIRA Hi - Last Filed: 07/08/21 12:15> Const General: cooperative, no acute distress and awake <ELVIRA Hi - Last Filed: 07/08/21 12:15> Orientation/consciousness: patient oriented x3 <ELVIRA Hi - Last Filed: 07/08/21 12:15> Neck Neck: Yes JVD <ELVIRA Hi - Last Filed: 07/08/21 12:15> Resp Effort & Inspection: normal respiratory effort and not labored <ELVIRA Hi - Last Filed: 07/08/21 12:15> Auscultation: clear to auscultation bilaterally, no rales, no rhonchi and no wheezes <CHELA Hi - Last Filed: 07/08/21 12:15> Cardio Jugular venous distension: JVD <CHELA Hi - Last Filed: 07/08/21 12:15> Palpation: normal PMI <CHELA Hi - Last Filed: 07/08/21 12:15> Rate: regular rate <Sophie CHELA Guerra - Last Filed: 07/08/21 12:15> Rhythm: regular rhythm <Sophie Guerra NP - Last Filed: 07/08/21 12:15> Heart sounds: S1 normal heart sound present and S2 normal heart sound present <[facility] Last Filed: 07/08/21 12:15> Peripheral pulses: Peripheral pulses 2+ throughout <[facility] Last Filed: 07/08/21 12:15> GI Inspection: Yes normal to inspection <CHELA Hi - Last Filed: 07/08/21 12 :15> Neuro General: patient oriented x3 <CHELA Hi [place] Last Filed: 07/08/21 12:15> Extrem Other: trace lower leg edema <CHELA Hi - Last Filed: 07/08/21 12:15> General: Yes normal to inspection <Sophie Guerra NP - Last Filed: 07/08/21 12:15> Results Labs and Meds Result diagrams: : 07/07/21 06:47 07/07/21 06:47 <Sophie Guerra NP - Last Filed: 07/08/21 12:15> Progress Note: A&P Assessment and plan (1) Tricuspid valve stenosis: Status: Acute <CHELA Hi [place] Last Filed: 07/08/21 12:15> Assessment and Plan: Hx IV drug abuse, Tricupsid valve Endocarditis with bioprosthetic Tricuspid valve replacement. Echo done 04/17/21, limited study but showing Tricuspid valve stenosis with mean gradiant 9mmhg, LV function preserved. Admit now with edema and being tx for right heart failue. Drug screen + for cocaine, opiates, fentanyl. Blood cultures preliminary for gm + cocci chains. He is on IV Vancomycin. Echocardiogram is pending. <ELVIRA Hi - Last Filed: 07/08/21 12:15> (2) Right heart failure: Status: Acute <ELVIRA Hi - Last Filed: 07/08/21 12:15> Assessment and Plan: Admit with leg pain, anasarca. + JVD on exam. BNP elevated at 413. Has known tricuspid valve stenosis. Has been receiving IV Lasix. Fluid balance based on I+Os remains +. Leg edema now trace. Still has JVD. Continue IV lasix. Ongoing I+O monitoring. Close monitoring of electrolyte and kidney function with replacement if warranted. Echo as above. <ELVIRA Hi - Last Filed: 07/08/21 12:15> Admit with leg pain, anasarca. + JVD on exam. BNP elevated at 413. Has known tricuspid valve stenosis. Has been receiving IV Lasix. Fluid balance based on I+Os remains +. Leg edema now trace. Still has JVD. Continue IV lasix. Ongoing I+O monitoring. Close monitoring of electrolyte and kidney function with replacement if warranted. Echo as above. Patient seen and examined. Case discussed with Sophie Guerra. Patient appears clinically toxic. Has positive blood cultures. Echocardiogram still needs to be reviewed. He does have right heart failure related tricuspid valve stenosis and also has underlying pulmonary embolism. He still does not seem concerned about use of IV drugs, especially in the setting of prosthetic tricuspid valve carries extremely high risk for recurrent infection and . This was discussed with him. He obviously needs long-term treatment for his bacteremia which is highly likely has endocarditis of the tricuspid valve and should consider prolonged antibiotics. If he abstains from drug use in the future reliably, may require further look at his tricuspid valve stenosis. For now he still has JVD, however otherwise overall his fluid status appears okay. Can cut down his diuretic regimen. Overall prognosis is extremely guarded <Clyde Delaney MD - Last Filed: 07/08/21 12:29> (3) Active substance abuse: Status: Acute <ELVIRA Hi - Last Filed: 07/08/21 12:15> Assessment and Plan: Needs complete cessation. <ELVIRA Hi - Last Filed: 07/08/21 12:15> (4) Drug abuse and dependence: Status: Acute <ELVIRA Hi - Last Filed: 07/08/21 12:15> (5) Bacteremia: Status: Resolved <ELVIRA Hi - Last Filed: 07/08/21 12:15> Assessment and Plan: On Vancomycin. Being followed by hospitalist. Will likely need 6 week course. <ELVIRA Hi - Last Filed: 07/08/21 12:15> (6) Pulmonary embolism: Status: Acute <ELVIRA Hi - Last Filed: 07/08/21 12:15> Assessment and Plan: Hx of PE, Nov 2020 and left AMA. This admit was restarted back on his Xarelto <ELVIRA Hi - Last Filed: 07/08/21 12:15> Fall Risk Details Current Medications: Current Medications Acetaminophen (Acetaminophen 325 Mg Tablet) 650 mg PO Q6H PRN PRN Reason: pain Last Admin: 07/06/21 22:17 Dose: 650 mg Documented by: Furosemide (Furosemide 20 Mg/2 Ml Vial) 20 mg IVPUSH DAILY [facility]; Protocol Last Admin: 07/08/21 09:20 Dose: 20 mg Documented by: Hydromorphone HCl (Hydromorphone Hcl 0.5 Mg/0.5 Ml Syringe) 0.5 mg IVPUSH Q4H PRN; Protocol PRN Reason: pain Last Admin: 07/07/21 20:18 Dose: 0.5 mg Documented by: Vancomycin HCl 750 mg/ Sodium (Chloride) 265 mls @ 265 mls/hr IV Q12H [facility] Last Infusion: 07/08/21 10:42 Dose: Infused Documented by: Methadone HCl (Methadone Hcl 20 Mg/2 Ml Oral.Conc) 20 mg PO DAILY [facility] Last Admin: 07/07/21 08:05 Dose: 20 mg Documented by: Pharmacy Consult (Consult Rx Vancomycin Dosing) 1 each MISCELLANE DAILY PRN PRN Reason: Consult order Rivaroxaban (Rivaroxaban 20 Mg Tablet) 20 mg PO DAILY [facility] Last Admin: 07/07/21 08:59 Dose: 20 mg Documented by: Sodium Chloride (0.9 % Sodium Chloride Flush 3 Ml Syringe) [facility] Last Admin: 07/08/21 09:17 Dose: 3 ml Documented by: <ELVIRA Hi - Last Filed: 07/08/21 12:15> Time Spent With Patient Time: Total time spent is greater than 50% in coordination of care (as documented) at patient's floor/unit and/or counseling patient: <ELVIRA Hi - Last Filed: 07/08/21 12:15> Time with patient: 15 - 24 minutes <ELVIRA Hi - Last Filed: 07/08/21 12:15> Progress Note: Quality Stroke Does the patient have a stroke diagnosis?: No <ELVIRA Hi Last Filed: 07/08/21 12:15> Procedures Date of Service Date of Service: 07/08/21 <ELVIRA Hi - Last Filed: 07/08/21 12:15>
[2021-07-08] MEDS: Rivaroxaban 20 MG TABLET PO (11:57)
[2021-07-08] MEDS: methADONE HCl 20 MG/2 ML ORAL.CONC PO (11:57)
[2021-07-08] MEDS: methADONE HCl 20 MG/2 ML ORAL.CONC 5 MG PO (11:57)
[2021-07-08 12:30] VITALS: PULSE 90
--- NOTE | 2021-07-08 12:50 | PM.EVENT ---
Event Note Date of Service: 07/08/21 Event Note: Transthoracic echocardiogram shows worsening tricuspid valve gradient of the bioprosthetic valve with what appears to be severe stenosis with mean gradient of 13 mm of mercury. There is also large mobile mass consistent with vegetation on the bioprosthetic valve. Thickening of the bioprosthetic leaflets and the struts are either inflammatory or pannus formation or infectious. This is unclear. Patient clinically appears to be toxic. I think patient should be best transferred to [facility] for cardiothoracic surgical evaluation.
--- NOTE | 2021-07-08 14:00 | MHC.RECOVRN ---
T/w attempted to meet with pt to f/u after discussion with Tami Luna APRN, this morning. Pt had received an additional 5 mg methadone (25 mg total). Pt asleep. Will continue to follow.
--- NOTE | 2021-07-08 15:08 | PM.DS ---
DS: Providers Provider Date of Service: 07/08/21 Date of admission: 07/06/21 09:19 Primary care physician: None Physician Consults: 07/06/21 09:18 Consult to Cardiology Routine Consulting Provider: ePdro Chang Reason for consultation: tricuspid stenosis s/p replacement for IE 07/06/21 09:35 Addiction Medicine Routine Consulting Provider: Tami Luna Reason for consultation: opiates, cocaine 07/07/21 14:15 Consult to Infectious Diseases Routine Consulting Provider: Lena Plascencia Reason for consultation: GPC chains, IVDA DS: Diagnosis Discharge Diagnosis (1) Tricuspid valve stenosis: Status: Acute (2) Right heart failure: Status: Acute (3) Active substance abuse: Status: Acute (4) Drug abuse and dependence: Status: Acute (5) Bacteremia: Status: Resolved (6) Pulmonary embolism: Status: Acute DS: Summary Hospital Course Hospital Course: from hpi: Chief Complaint: LE pain and edema 30M presented with one week of lower extremity pain, edema, and cough. patient has history of IVDA and partially treated endocarditis, pulmonary embolism. he had a tricuspid valve replacement. in March of 2021 he was admitted to [facility] [place] due to anasarca related to tricuspid stenosis. at that time he had some improvement but had left against medical advice. he reports edema only started to recur over past week, mostly in legs and abdomen, has been having pain and difficulty ambulating. he also reports a dry cough not associated with fever, chills, chest pain, or sick contacts. course: patient was admitted with painful lower extremity edema due to tricuscpid stenosis from endocarditis in [facility] with IVDA. blood cultures growing GPC, species pending. he was given lasix and vancomycin. he was also having opiate withdrawal and started on methadone 20mg. echo showed large mobile vegetation 1.5cm on tricuspid valve, with severe stenosis, recommendations from cardiology were to trasfer to tertiary center for surgical evaluation. he has been accepted to [facility] Time Spent with Patient Time attestation: Total time spent providing and/or coordinating discharge services: Discharge coordination time: Greater than 30 minutes Quality: Stroke Does the patient have a stroke diagnosis?: No Physical Exam Vital Signs: Vital Signs: Last Vital Signs Temp 96 F L 07/08/21 11:01 Pulse 110 H 07/08/21 11:01 Resp 18 07/08/21 11:01 BP 117/75 07/08/21 11:01 Pulse Ox 96 07/08/21 11:01 Body Mass Index 23.3 General: AO X 3, in pain, ill appearing Resp:? CTA bilateral, no accessory muscles used CVS: S1,S2,RRR, trace edema GI: soft, non tender, non distended Neuro:? motor grossly intact, alert Psych: appropriate affect, appropriate insight? DS: Data Data Completed and Pending Completed studies during hospitalization [Text1]: Procedures Detoxification Services for Substance Abuse Treatment (04/15/21) Pending studies at discharge: blood cultures... gram stain GPC 11/20 Labs on day of discharge: Preliminary micro results at discharge 07/06/21 01:09 Blood Culture - Preliminary Blood - Venous Gram positive cocci 07/06/21 01:11 Blood Culture - Preliminary Blood - Venous Gram positive cocci Additional Comments Additional comments: echo: [place] [id number] Cardiology Report Signed Patient: Norberto Marquez MR#: [id number] : 1990 Acct:[id number] Age/Sex: 30 / M ADM Date: 07/06/21 Loc: [facility] 443-[address]: Gaurav Snowden MD Ordering Physician: Gaurav Snowden MD Date of Service: 07/08/21 Procedure(s): CA echo limited Accession Number(s): cc: Gaurav Snowden MD~ ? Transthoracic Echocardiogram Patient (Last, First, Middle): Norberto Marquez, Gender:? Male Patient ID:? ? ? [id number] Date of : ? 1990 Age: ? 30 Procedure Date:? 07/08/2021 Procedure Type:? Transthoracic Echocardiogram Location:? [facility] [place] Height:? 165.1 cm ? Weight: ? 63.5 kg BSA: ? 1.70 m2? Heart Rate:? ? ? bpm BP:? 117 / 74 mmHg Dehydrogenation Converter Operator: ? ? YR Referring MD:? ? Gaurav Snowden MD Electronics Test Engineer:? ? Clyde Delaney MD Symptoms:? tricuspid stenosis Study Quality: ? Good ECG Rhythm:? ? ? Sinus ?? ? Conclusions: - ? 1. Severe thickening of bioprosthetic tricuspid valve with a mobile vegetation with severe stenosis of the valve with mean? ? gradient of 13 mm of mercury ? 2. Normal LV systolic function ? 3. Trivial pericardial effusion? Findings Left Ventricle Normal left ventricular size, thickness, and systolic function. The visually estimated ejection fraction is between 55-60%. Right Ventricle Normal right ventricular cavity size and systolic function. Atria The left atrium is normal in size.? There is no evidence of interatrial shunt.? The right atrium is severely dilated. Aortic Valve Normal aortic valve structure and function.? There is no aortic valve stenosis.? There is no aortic valve regurgitation. Mitral Valve Normal mitral valve structure and function.? There is trace mitral valve regurgitation.? There is no mitral valve stenosis. Pulmonic Valve The pulmonic valve was not well visualized. Tricuspid Valve A bioprosthetic tricuspid valve is present.? The prosthetic tricuspid valve appears to be functioning abnormally.? Echo findings are consistent with stenosis of the tricuspid valve prosthesis.? Gradients across the prosthetic tricuspid valve are abnormal.? There is severe tricuspid valve stenosis. Mean tricuspid gradient is 13 mmHg.? There is severe thickening of the entire leaflet structure and the base of the struts, could represent pannus formation and/or infectious thickening.? There is also a mobile mass within the entire apparatus, maximum diameter of 1.5 cm consistent with a vegetation. Great Vessels All visible segments of the aorta are normal in size. Venous The inferior vena cava is normal in size and collapses less than 50% with inspiration. Pericardium/Pleural There is a trivial pericardial effusion. Prior Study Comparison Significant changes compared to prior study dated:? 04/17/2021.? stenosis of the tricuspid valve is worse with mean gradient of 13 mm of mercury as well as vegetation noted on the bioprosthetic tricuspid valve. Findings discussed with Dr. Snowden ? Measurements 2D Linear Measurements IVSd: ? 1.06? 0.6-0.9/0.6-1.0 cm LVIDd:? 4.29? 3.9-5.3/4.2-5.9 cm LVIDd Index:? 2.52? 2.4-3.2/2.2-3.1 cm/m2 LVIDs:? 2.96? 2.0-3.6 cm LVPWd:? 1.19? 0.7-1.1 cm LV Mass:? 208.80? 67-162/88-224 g LV Mass Index:? ? ? 122.83? 43-95/49-115 g/m2 ?? Tricuspid Valve TV Pk Dalton:? 2.41 TV Mn Dalton:? 1.73 TV Pk Grad: ? 23.00 TV Mn Grad: ? 13.00 TR Pk Dalton:? 2.54 TR Pk Grad: ? 26.00 RA Press: ? 8.00 RVSP: ? 34.00 ?? Discharge Plan Discharge Patient Disposition: [facility] Discharge Diagnosis: endocarditis, tricuspid stenosis Referrals: Physician,None [Primary Care Provider] - 1 Week Discharge Medications: New vancomycin 750 mg recon soln 750 mg IV Q12H Qty: 1 RF: 0 furosemide 20 mg Tablet 20 mg PO DAILY Qty: 0 RF: 0 methadone [Methadose] 10 mg/mL Concentrate 20 mg PO DAILY Qty: 0 RF: 0 Xarelto 20 mg Tablet 20 mg PO DAILY Qty: 0 RF: 0 Discharge Orders: Discharge Order (Routine); Ordered 07/08/21 Ordered By: Gaurav Snowden Diet: advance to usual diet Activity on Discharge: As tolerated Stand Alone Forms: Patient Portal Discharge page Care Plan Goals: manage [facility] Concerns: tricuspid stenosis Plan of Treatment: vanco, follow up cultures, transfer to [facility] [place] Assessment: see above
--- NOTE | 2021-07-08 15:25 | MHC.CM.PN ---
Addendum entered by Maribel Tidwell 07/08/21 16:10: BLS TRANSPORT BOOKED ON HOLD. US WILL CALL WHEN PT READY FOR TRANSPORT Original Note: PT BEING TRANSFERRED TO [facility]
--- NOTE | 2021-07-08 16:02 | W.PM.IDCN ---
History of Present Illness Data of Consult Service Date: 07/08/21 Primary Care Provider: None Physician HPI Reason for consult: bacteremia He presents with leg swelling and weakness He has some hemoptysis He has had previous tricuspid valve endocarditis He has no chest pain at this time Review of Systems Review of Systems: Yes all other systems are reviewed and are negative [facility] Past Medical History Medical History (Updated 07/08/21 @ 16:06 by Lena Plascencia MD) Anasarca Bacteremia Drug abuse and dependence Endocarditis HCV (hepatitis C virus) Pulmonary embolism Steatosis, liver Tricuspid valve stenosis Family History Family history: reviewed and not pertinent Surgical History Surgical History History of tricuspid valve replacement with bioprosthetic valve Social History Social History Household Members: Unknown / Unable to assess Housing: Homeless Do you presently have visiting nurse or other home services: No Unable to assess alcohol history related to: Refusing to respond Alcohol intake: never Patient Tobacco Use Status: Current everyday Tobacco user Tobacco use type: Cigarette Substance Use Type: Crack/Cocaine, Heroin, Marijuana and Opiates service: No Current occupational status: unemployed Meds Allergies Allergy/AdvReac Type Severity Reaction Status Date / Time No Known Allergies Allergy Unverified 07/05/20 15:53 [No Known Allergies*] Active Medications: Current Medications Acetaminophen (Acetaminophen 325 Mg Tablet) 650 mg PO Q6H PRN PRN Reason: pain Last Admin: 07/06/21 22:17 Dose: 650 mg Documented by: Furosemide (Furosemide 20 Mg Tablet) 20 mg PO DAILY CRISTINA; Protocol Hydromorphone HCl (Hydromorphone Hcl 0.5 Mg/0.5 Ml Syringe) 0.5 mg IVPUSH Q4H PRN; Protocol PRN Reason: pain Last Admin: 07/07/21 20:18 Dose: 0.5 mg Documented by: Vancomycin HCl 750 mg/ Sodium (Chloride) 265 mls @ 265 mls/hr IV Q12H CRISTINA Last Infusion: 07/08/21 10:42 Dose: Infused Documented by: Methadone HCl (Methadone Hcl 20 Mg/2 Ml Oral.Conc) 20 mg PO DAILY CRISTINA Last Admin: 07/08/21 11:57 Dose: 20 mg Documented by: Pharmacy Consult (Consult Rx Vancomycin Dosing) 1 each MISCELLANE DAILY PRN PRN Reason: Consult order Rivaroxaban (Rivaroxaban 20 Mg Tablet) 20 mg PO DAILY [facility] Last Admin: 07/08/21 11:57 Dose: 20 mg Documented by: Sodium Chloride (0.9 % Sodium Chloride Flush 3 Ml Syringe) 3 ml IVFLUSH QSHIFT [facility] Last Admin: 07/08/21 09:17 Dose: 3 ml Documented by: Physical Exam Vital Signs: Vital Signs: Last Vital Signs Temp 96 F L 07/08/21 11:01 Pulse 110 H 07/08/21 11:01 Resp 18 07/08/21 11:01 BP 117/75 07/08/21 11:01 Pulse Ox 96 07/08/21 11:01 Body Mass Index 23.3 Const: General: cooperative HENMT: Head: Yes normal to inspection Mouth: Normal oral and palatal mucosa present Resp: Effort & Inspection: normal respiratory effort Cardio: Rate: regular rate Rhythm: regular rhythm GI: Palpation (GI): Soft to palpation and nontender Skin: General skin exam: no rashes or lesions noted Extrem: Other: redness and swelling bilateral lower extremities Results Labs CBC & Chem 7: 07/07/21 06:47 07/07/21 06:47 Microbiology Microbiology Results: Microbiology 07/06/21 01:09 Blood - Venous Blood Culture - Preliminary Gram positive cocci 07/06/21 01:11 Blood - Venous Blood Culture - Preliminary Gram positive cocci Assessment and Plan (1) Right heart failure: Status: Acute (2) Steatosis, liver: Status: Acute (3) Pulmonary embolism: Status: Acute (4) Active substance abuse: Status: Acute (5) Bacteremia: Status: Acute He has had tricuspid valve endocarditis He may have it again Patient doesnt take medications as directed Continue Vancomycin cover staph ,strep Await cultures Would suggest ALDAIR
--- NOTE | 2021-07-08 16:37 | HO.ADDICTCON ---
History of Present Illness Date of Service: 07/08/2021 Chief Complaint: Lower extremity edema/pain, tricuspid stenosis Reason for Consult: OUD Requesting physician: Gaurav Snowden [facility] Narrative: Per H&P: 30M presented with one week of lower extremity pain, edema, and cough. patient has history of IVDA and partially treated endocarditis, pulmonary embolism. he had a tricuspid valve replacement. in March of 2021 he was [place] [facility] [place] related to tricuspid stenosis. at that time he had some improvement but had left against medical advice. he reports edema only started to recur over past week, mostly in legs and abdomen, has been having pain and difficulty ambulating. he also reports a dry cough not associated with fever, chills, chest pain, or sick contacts. Consulted requested to eval and treat OUD. chart reviewed, Patient admitted on Thursday and started on methadone 20mg by hospitalist. This wirter in to see patient on Thursday, 07/07, still in ED. Patient sleeping, difficult to rouse, declining interview. Per clinical team took a long time to take his methadone and was declining additional pain medications. --no changes were made to orders at that time. patient did report to recovery team that he had been using approx 2 bundles of heroin daily Patient seen again on 07/08 with RSRN. Again, patient asleep, somewhat challenging to wake. Once awake, minimal participation in interview. Requesting methadone be increased. Reporting continued chills and malaise. Unwilling to discuss further. Past Psychiatric History: Not reviewed Medical Evaluation Reviewed: Yes Personal & Social History: currently living [address] did ask for assistance with housing Review of Systems Review of Systems as Per [facility]. minimal participation in interview Diagnostics Vital Signs (24Hr): Vital Signs - 24 hr 07/07/21 20:00 07/08/21 06:58 07/08/21 11:01 Temperature 100.3 F 99 F 96 F L Pulse Rate 104 H 80 110 H Respiratory Rate 18 18 18 Blood Pressure 131/58 L 117/74 117/75 Pulse Oximetry 98 96 96 Body Mass Index 23.3 Labs Results: 07/07/21 06:47 07/07/21 06:47 Labs: Laboratory Results - last 48 hr 07/07/21 07/07/21 06:47 06:47 WBC 22.1 H RBC 4.18 L Hgb 10.7 L Hct 32.0 L MCV 76.6 L MCH 25.6 L MCHC 33.4 RDW 23.8 H Plt Count 103 L MPV Not Reportable Absolute Nucleated RBC 0.000 Nucleated RBC % (auto) 0.0 Sodium 134 L Potassium 3.7 Chloride 107 Carbon Dioxide 21 L Anion Gap 10 L BUN 16 Creatinine 1.07 Estim Creat Clear Calc 86.2 Estimated GFR > 60 Random Glucose 86 Calcium 7.3 L EKG EKG: reviewed Imaging Radiology Impressions: ITS Impressions Chest X-Ray 07/06/21 01:10 IMPRESSION: No acute cardiopulmonary findings. Mental Status Exam Mental Status Exam Patient Appearance: Fatigued and Unkempt Level of Consciousness: Drowsy and Lethargic Patient Behavior: Guarded and Uncooperative Mood Description: Flat Affect Description: Flat Speech Pattern: Clear Judgement: Fair Medications Medications Current Medications Acetaminophen (Acetaminophen 325 Mg Tablet) 650 mg PO Q6H PRN PRN Reason: pain Last Admin: 07/06/21 22:17 Dose: 650 mg Documented by: Furosemide (Furosemide 20 Mg Tablet) 20 mg PO DAILY [facility]; Protocol Hydromorphone HCl (Hydromorphone Hcl 0.5 Mg/0.5 Ml Syringe) 0.5 mg IVPUSH Q4H PRN; Protocol PRN Reason: pain Last Admin: 07/07/21 20:18 Dose: 0.5 mg Documented by: Vancomycin HCl 750 mg/ Sodium (Chloride) 265 mls @ 265 mls/hr IV Q12H [facility] Last Infusion: 07/08/21 10:42 Dose: Infused Documented by: Methadone HCl (Methadone Hcl 20 Mg/2 Ml Oral.Conc) 20 mg PO DAILY [facility] Last Admin: 07/08/21 11:57 Dose: 20 mg Documented by: Pharmacy Consult (Consult Rx Vancomycin Dosing) 1 each MISCELLANE DAILY PRN PRN Reason: Consult order Rivaroxaban (Rivaroxaban 20 Mg Tablet) 20 mg PO DAILY [facility] Last Admin: 07/08/21 11:57 Dose: 20 mg Documented by: Sodium Chloride (0.9 % Sodium Chloride Flush 3 Ml Syringe) 3 ml IVFLUSH QSHIFT [facility] Last Admin: 07/08/21 09:17 Dose: 3 ml Documented by: Allergies Allergies Allergy/AdvReac Type Severity Reaction Status Date / Time No Known Allergies Allergy Unverified 07/05/20 15:53 [No Known Allergies*] Assessment & Plan Assessment & Plan (1) Opioid use disorder: Status: Acute Code(s): F11.99 - Opioid use, unspecified with unspecified opioid-induced disorder Assessment and Plan: methadone increased by 5mg patient requesting larger dose increase--concern related to ? oversedation (challenges with waking patient) plan was to continue titrating dose, but patient is now due to be transferred to [facility] Greater than 50% of the session was spent on counseling and/or coordination of care [facility] Past Medical History Medical History Anasarca Bacteremia Drug abuse and dependence Endocarditis HCV (hepatitis C virus) Pulmonary embolism Steatosis, liver Tricuspid valve stenosis Family History Family history: reviewed and not pertinent Surgical History Surgical History History of tricuspid valve replacement with bioprosthetic valve Social History Social History Household Members: Unknown / Unable to assess Housing: Homeless Do you presently have visiting nurse or other home services: No Unable to assess alcohol history related to: Refusing to respond Alcohol intake: never Patient Tobacco Use Status: Current everyday Tobacco user Tobacco use type: Cigarette Substance Use Type: Crack/Cocaine, Heroin, Marijuana and Opiates service: No Current occupational status: unemployed
== END 2021-07-08 17:39 | disposition short-term general hospital (02) | DRG 200 ==
LOC: HO.ED 07-06 05:16 → HO.EDOVER 07-06 09:28 → HO.IMC 07-07 18:11
PROVIDERS: Admitting Provider Internal Medicine; Emergency Provider Internal Medicine; Visit Provider Internal Medicine
DX: I07.0 Rheumatic tricuspid stenosis (principal); D69.6 Thrombocytopenia, unspecified; I50.810 Right heart failure, unspecified; R78.81 Bacteremia; I38 Endocarditis, valve unspecified; K76.0 Fatty (change of) liver, not elsewhere classified; Z95.2 Presence of prosthetic heart valve; D72.829 Elevated white blood cell count, unspecified; F17.210 Nicotine dependence, cigarettes, uncomplicated; R94.31 Abnormal electrocardiogram [ECG] [EKG]; F11.23 Opioid dependence with withdrawal; R60.1 Generalized edema; Z71.6 Tobacco abuse counseling; Z91.14 Patient's other noncompliance with medication regimen; B19.20 Unspecified viral hepatitis C without hepatic coma; Z86.711 Personal history of pulmonary embolism; Z20.822 Contact with and (suspected) exposure to COVID-19; Z79.01 Long term (current) use of anticoagulants; Z79.899 Other long term (current) drug therapy
CPT/HCPCS: 36415; 71045; 80048; 80053; 80307; 83605; 83735; 83880; 84484; 85025; 85027; 85610; 85730; 87040; 87077; 87186; 87205; 87635; 93005; 93308; 99285; J1170; J1940; J2060; J2543; J3370

== ENCOUNTER 2021-09-11 19:39 | Inpatient (IN) | payer MEDICAID, SELFPAY ==
--- NOTE | 2021-09-11 | ECG_ITS ---
Test Reason : overdose Blood Pressure : / mmHG Vent. Rate : 164 BPM Atrial Rate : 166 BPM P-R Int : 096 ms QRS Dur : 068 ms QT Int : 256 ms P-R-T Axes : 083 086 056 degrees QTc Int : 422 ms Possible Atrial flutter with 2 to 1 block RSR' or QR pattern in V1 suggests right ventricular conduction delay Abnormal ECG Heart rate has increased aflutter is new Referred By: Enid Dean Electronically Signed By:VENITA ENGLISH MD
--- NOTE | ~2021-09-11 | CT_ITS ---
EXAMINATION: CT ANGIOGRAM OF THE CHEST WITH AND WITHOUT CONTRAST (CT PULMONARY ANGIOGRAM FOR PE) CLINICAL INFORMATION: Reason for Exam Known PE, noncompliant on Xarelto, cp/sob COMPARISON: CTA PE study 10/28/[address] 06/12/2020 TECHNIQUE: Prior to contrast administration, noncontrast localization images were obtained. Subsequently, multidetector volumetric imaging was performed from the thoracic inlet to below the diaphragms following the administration of 59 mL Omnipaque 350 intravenous contrast. No contrast reaction reported Sagittal, coronal, and MIP oblique sagittal reformatted images were obtained on the CT workstation, uploaded to PACS, and reviewed. This CT examination was performed using dose optimization techniques as appropriate, variously including the following: *Automated exposure control *Adjustment of mA and/or kV according to patient size (this includes techniques or standardized protocols for targeted exams where dose is matched to indication/reason for exam; i.e. extremities or head) *Use of iterative reconstruction technique Total exam dose-length product 248 mGy-cm FINDINGS: QUALITY OF STUDY/CONTRAST BOLUS: Satisfactory. PULMONARY ARTERIES: In the right lower lobe, there was a lower lobe branch seen which does not opacify with contrast but appears somewhat contracted. On the 10/28/2015 study, this vessel was entirely normal at that time. Some other vessels appear slightly attenuated with what appears to be a chronic change (for example left upper lobe 8:83). No definite acute intraluminal filling defects are seen. THORACIC AORTA: No aneurysm or dissection. LUNG: Extensive pulmonary infiltrates present at the time of the last CT PE study have resolved as have the innumerable masses and cavitary lesions seen on the 06/12/[address]. At this time, there is a 1.8 cm groundglass left upper lobe nodule (8:207) along with a 6 mm right upper lobe nodule (8:193) and a left lower lobe paraspinal rounded area of infiltrate/atelectasis measuring 3.3 x 3.1 x 2.4 cm (8:275). PLEURA: No pleural effusion or pneumothorax. MEDIASTINUM: Status post median sternotomy. Normal heart size. No pericardial effusion. No hilar or mediastinal lymphadenopathy. No evidence of septal bowing or right heart strain. CHEST WALL/AXILLA: No axillary or internal mammary lymphadenopathy. OSSEOUS STRUCTURES: No acute or suspicious osseous abnormality. UPPER ABDOMEN: Again seen is hepatomegaly. No reflux of contrast into the hepatic veins to suggest elevated right heart pressures. CT/CT angio chest PE protocol IMPRESSION: No definite acute pulmonary emboli but there are abnormalities seen in the pulmonary vasculature which could be chronic with contraction of the vessels which fill poorly. Extensive pulmonary masses, some cavitary have resolved with some pulmonary parenchymal abnormalities at this time described above. VTE: Positive, most likely chronic or subacute
--- NOTE | ~2021-09-11 | XR_ITS ---
EXAMINATION: XR CHEST CLINICAL INFORMATION: Cough, shortness of breath. COMPARISON: Chest radiograph dated from 07/06/2021. TECHNIQUE: AP view of the chest was obtained. FINDINGS: Unchanged appearance of the cardiomediastinal silhouette with sternal wires and sternal plates. No focal consolidation. No evidence of pneumothorax, pleural effusion, pulmonary edema. No acute osseous abnormalities. XR/XR chest 1V IMPRESSION: No acute cardiopulmonary findings.
[2021-09-11 19:49] VITALS: PULSE 164; PULSE 64; RESP 30; TEMP 39.6; O2SAT 99; BMI 22.1
[2021-09-11 20:18] LABS: Glucose, Whole Blood 111 mg/dL (60-115)
--- NOTE | 2021-09-11 20:23 | PHA.MEDREC ---
Pharmacy Consult ? Medication Reconciliation Pharmacy has completed the medication reconciliation. Pt states that he is currently not taking any meds, left xarelto and gabapentin as a reference on med rec
[2021-09-11] MEDS: 0.9 % Sodium Chloride 1,000 ML 999 ML IVCONT ×3 (20:24→22:04)
--- NOTE | 2021-09-11 20:28 | ED_ITS ---
HPI - General Adult General Chief complaint: General Medical Stated complaint: weakness Time Seen by Provider: 09/11/21 19:48 Source: patient and EMS Mode of arrival: EMS History of Present Illness HPI narrative: 30-year-old male with PMHx substance abuse, Hepatitis C, tricuspid valve stenosis, bacteremia, endocarditis, right heart failure, PE on Xarelto, presenting to the ED via EMS being found on the street lying in the same area x days reporting generalized fatigue/weakness, diffuse body myalgias with pain in legs and difficulty ambulating, mild LE edema, chills, chest pain, shortness of breath, cough, & nausea x weeks. Admits to non compliance with prescribed medications x weeks. Denies known fever, abdominal pain Of note patient was admitted on 07/06 here at [facility] and transferred to [facility] On 07/08/2021 for cardiology surgical evaluation of tricuspid valve vegetation Onset (ago): day(s) Related Data Home Medications Medication Instructions Recorded Confirmed gabapentin 300 mg capsule 1 cap PO TID 09/11/21 09/11/21 rivaroxaban 20 mg tablet (Xarelto) 1 tab PO DAILY 09/11/21 09/11/21 Allergies Allergy/AdvReac Type Severity Reaction Status Date / Time No Known Allergies Allergy Unverified 07/05/20 15:53 [No Known Allergies*] Review of Systems Review of Systems: Constitutional: No known Fever, + Chills, No Night Sweats, + Fatigue, + Malaise ENT/Mouth: No Ear Pain, No Nasal Congestion, No sore throat, No Rhinorrhea Eyes: No Eye Pain, No Swelling, No Redness Cardiovascular: + Chest Pain, + SOB, No Dyspnea on Exertion, No Orthopnea, No Edema, No Palpitations Respiratory: + Cough, + Sputum, No Wheezing, No Smoke Exposure, No Dyspnea Gastrointestinal: + Nausea, No Vomiting, No Diarrhea, No Constipation, No Abdominal pain Genitourinary: No Dysuria, No Urinary Frequency, No Hematuria,No Flank Pain, No Urinary Flow Changes Musculoskeletal: + joint pain, + Myalgias, No Joint Swelling Skin: No Skin Lesions, No rash Neuro: N+o Weakness, No Numbness, No Paresthesias, No Dizziness, No Headache Yes all other systems are reviewed and are negative [facility] Past Medical History Attestation statement: The following information was validated with the patient. Medical History Anasarca Bacteremia Drug abuse and dependence Endocarditis HCV (hepatitis C virus) Pulmonary embolism Steatosis, liver Tricuspid valve stenosis Surgical History History of tricuspid valve replacement with bioprosthetic valve Social History Social History Household Members: Unknown / Unable to assess Housing: Homeless Do you presently have visiting nurse or other home services: No Unable to assess alcohol history related to: Refusing to respond Alcohol intake: never Patient Tobacco Use Status: Current everyday Tobacco user Tobacco use type: Cigarette Substance Use Type: Crack/Cocaine, Heroin, Marijuana and Opiates Advance Directives: No Advance Directives Information Provided: Yes service: No Current occupational status: unemployed Physical Exam Vital Signs: Vital Signs: Last Vital Signs Temp 99.3 F 09/11/21 22:00 Pulse 136 H 09/11/21 22:00 Resp 17 09/11/21 22:26 BP 103/49 L 09/11/21 22:00 Pulse Ox 95 09/11/21 22:00 Body Mass Index 22.1 Const: General: anxious, combative and poor hygiene Orientation/consciousness: patient oriented x3 HENMT: Head: Yes normal to inspection and Yes atraumatic Ears: hearing grossly normal bilaterally General nose exam: Normal external nose present Face and sinus: Yes normal facial exam Eyes: General: appearance normal, both eyes and all related structures Pupils: Fixed pupils (Reactive) bilaterally EOM: EOMs intact bilaterally Neck: Neck: Yes normal visual inspection and Yes no meningeal signs Resp: Effort & Inspection: normal respiratory effort Auscultation: clear to auscultation bilaterally, no rales, no rhonchi and no wheezes Cardio: Rate: regular rate and tachycardic Heart sounds: S1 normal heart sound present and S2 normal heart sound present GI: Inspection: Yes normal to inspection Palpation (GI): Soft to palpation, nontender, no guarding and not rigid : General: Yes no CVA tenderness Back/Spine/Pelvis: Back: no CVA tenderness Skin: Rashes: no rashes Wounds: no wounds Neuro: General: patient oriented x3, tone normal, moves all extremities and no meningeal signs Gait exam (Neuro): Normal gait present Extrem: Other: + bilateral LE edema General: Yes normal to inspection Course Course Course Narrative: -2119--noted leukocytosis of 18.1. H&H of patient's baseline. Lactic acid elevated to 2.1. Magnesium low 1.5 > 2g IV repletion ordered -BNP 208 -patient admitted to hospitalist service for further management CT angio chest PE protocol IMPRESSION: No definite acute pulmonary emboli but there are abnormalities seen in the pulmonary vasculature which could be chronic with contraction of the vessels which fill poorly. Extensive pulmonary masses, some cavitary have resolved with some pulmonary parenchymal abnormalities at this time described above. ? VTE: Positive, most likely chronic or subacute Medical Decision Making MDM Narrative Medical decision making narrative: 30-year-old male with PMHx substance abuse, Hepatitis C, tricuspid valve stenosis, bacteremia, endocarditis, right heart failure, PE on Xarelto, presenting to the ED via EMS being found on the street lying in the same area x days reporting generalized fatigue/weakness, diffuse body myalgias with pain in legs and difficulty ambulating, mild LE edema, chills, chest pain, shortness of breath, cough, & nausea x weeks. On exam tachycardic, tachypneic, febrile to 103.2, vital sign abnormalities likely from patient's fever. Concern for endocarditis due to patient's noncompliance. There was also concern for PE secondary to noncompliance. Rule out other metabolic and infectious etiologies including CHF/ACS Plan: EKG, labs, UA, CXR, CTA to rule out PE, lactic/blood cultures, IV Zosyn/vancomycin, admission Lab Data Result diagrams: 09/11/21 20:20 09/11/21 20:20 Labs: Lab Results 09/11/21 09/11/21 09/11/21 Range/Units 20:13 20:20 20:20 WBC 18.1 H (4.8-10.8) X10*3/uL RBC 4.33 L (4.60-5.80) X10*6/uL Hgb 11.4 L (14.0-18.0) g/dl Hct 35.5 L (42.0-52.0) % MCV 82.0 (80.0-98.0) fL MCH 26.3 L (27.0-33.0) pg MCHC 32.1 (31.0-36.0) g/dl RDW 15.5 (11.0-16.0) % Plt Count 173 (160-400) X10*3/uL MPV 10.5 (9.4-12.4) fL Immature Gran % (Auto) 1.1 H (0.0-0.4) % Neut % (Auto) 90.7 H (45-73) % Lymph % (Auto) 4.1 L (20-40) % [place] % (Auto) 3.7 (2-11) % Eos % (Auto) 0.2 (0-4) % Baso % (Auto) 0.2 (0-2) % Lymph # (Auto) 0.8 L (1.2-4.9) X10*3/uL [place] # (Auto) 0.7 (0.1-1.2) X10*3/uL Eos # (Auto) 0.0 (0.0-0.4) X10*3/uL Baso # (Auto) 0.0 (0.0-0.2) X10*3/uL Abs Immat Gran (auto) 0.19 H (0.00-0.03) X10*3/uL Absolute Neuts (auto) 16.4 H (2.0-8.3) x10*3/uL Absolute Nucleated RBC 0.000 (0.0-0.012) X10*3/uL Nucleated RBC % (auto) 0.0 (0.0-0.2) /100WBC Smear Tech's Comments VERIFIED Sodium 135 (135-145) mmol/L Potassium 3.8 (3.3-5.1) mmol/L Chloride 106 (96-108) mmol/L Carbon Dioxide 20 L (22-29) mmol/L Anion Gap 13 (12-20) BUN 16 (9-16) mg/dL Creatinine 0.98 (0.5-1.4) mg/dL Estim Creat Clear Calc 90.2 Estimated GFR > 60 POC Glucose 111 (60-115) mg/dL Random Glucose 99 (60-115) mg/dL Lactic Acid (0.5-2.0) mmol/L Lactic Acid Fup @ 2Hr (0.5-2.0) mmol/L Calcium 8.4 D (8.4-10.2) mg/dL Magnesium 1.5 L (1.6-2.6) mg/dL Total Bilirubin 1.1 H (0.0-1.0) mg/dL Direct Bilirubin 0.9 H (0.0-0.5) mg/dL AST 16 (5-37) U/L ALT 11 (0-40) U/L Alkaline Phosphatase 214 H D (39-117) U/L Total Creatine Kinase 28 L (38-174) U/L Troponin I High Sens (<3.5-35.0) ng/L B-Natriuretic Peptide (<100) pg/mL Total Protein 6.8 D (6.5-8.0) g/dL Albumin 3.2 L D (3.5-5.0) g/dL Lipase 14 (8-78) U/L Influenza Type A (PCR) (Negative) Influenza Type B (PCR) (Negative) RSV RNA Qual (PCR) (Negative) SARS-CoV-2 RNA (RT-PCR) (Negative) 09/11/21 09/11/21 09/11/21 Range/Units 20:20 20:20 20:20 WBC (4.8-10.8) X10*3/uL RBC (4.60-5.80) X10*6/uL Hgb (14.0-18.0) g/dl Hct (42.0-52.0) % MCV (80.0-98.0) fL MCH (27.0-33.0) pg MCHC (31.0-36.0) g/dl RDW (11.0-16.0) % Plt Count (160-400) X10*3/uL MPV (9.4-12.4) fL Immature Gran % (Auto) (0.0-0.4) % Neut % (Auto) (45-73) % Lymph % (Auto) (20-40) % [place] % (Auto) (2-11) % Eos % (Auto) (0-4) % Baso % (Auto) (0-2) % Lymph # (Auto) (1.2-4.9) X10*3/uL [place] # (Auto) (0.1-1.2) X10*3/uL Eos # (Auto) (0.0-0.4) X10*3/uL Baso # (Auto) (0.0-0.2) X10*3/uL Abs Immat Gran (auto) (0.00-0.03) X10*3/uL Absolute Neuts (auto) (2.0-8.3) x10*3/uL Absolute Nucleated RBC (0.0-0.012) X10*3/uL Nucleated RBC % (auto) (0.0-0.2) /100WBC Smear Tech's Comments Sodium (135-145) mmol/L Potassium (3.3-5.1) mmol/L Chloride (96-108) mmol/L Carbon Dioxide (22-29) mmol/L Anion Gap (12-20) BUN (9-16) mg/dL Creatinine (0.5-1.4) mg/dL Estim Creat Clear Calc Estimated GFR POC Glucose (60-115) mg/dL Random Glucose (60-115) mg/dL Lactic Acid 2.1 H* (0.5-2.0) mmol/L Lactic Acid Fup @ 2Hr (0.5-2.0) mmol/L Calcium (8.4-10.2) mg/dL Magnesium (1.6-2.6) mg/dL Total Bilirubin (0.0-1.0) mg/dL Direct Bilirubin (0.0-0.5) mg/dL AST (5-37) U/L ALT (0-40) U/L Alkaline Phosphatase (39-117) U/L Total Creatine Kinase (38-174) U/L Troponin I High Sens 29.4 D (<3.5-35.0) ng/L B-Natriuretic Peptide 208 H (<100) pg/mL Total Protein (6.5-8.0) g/dL Albumin (3.5-5.0) g/dL Lipase (8-78) U/L Influenza Type A (PCR) (Negative) Influenza Type B (PCR) (Negative) RSV RNA Qual (PCR) (Negative) SARS-CoV-2 RNA (RT-PCR) (Negative) 09/11/21 09/11/21 Range/Units 20:26 22:31 WBC (4.8-10.8) X10*3/uL RBC (4.60-5.80) X10*6/uL Hgb (14.0-18.0) g/dl Hct (42.0-52.0) % MCV (80.0-98.0) fL MCH (27.0-33.0) pg MCHC (31.0-36.0) g/dl RDW (11.0-16.0) % Plt Count (160-400) X10*3/uL MPV (9.4-12.4) fL Immature Gran % (Auto) (0.0-0.4) % Neut % (Auto) (45-73) % Lymph % (Auto) (20-40) % [place] % (Auto) (2-11) % Eos % (Auto) (0-4) % Baso % (Auto) (0-2) % Lymph # (Auto) (1.2-4.9) X10*3/uL [place] # (Auto) (0.1-1.2) X10*3/uL Eos # (Auto) (0.0-0.4) X10*3/uL Baso # (Auto) (0.0-0.2) X10*3/uL Abs Immat Gran (auto) (0.00-0.03) X10*3/uL Absolute Neuts (auto) (2.0-8.3) x10*3/uL Absolute Nucleated RBC (0.0-0.012) X10*3/uL Nucleated RBC % (auto) (0.0-0.2) /100WBC Smear Tech's Comments Sodium (135-145) mmol/L Potassium (3.3-5.1) mmol/L Chloride (96-108) mmol/L Carbon Dioxide (22-29) mmol/L Anion Gap (12-20) BUN (9-16) mg/dL Creatinine (0.5-1.4) mg/dL Estim Creat Clear Calc Estimated GFR POC Glucose (60-115) mg/dL Random Glucose (60-115) mg/dL Lactic Acid (0.5-2.0) mmol/L Lactic Acid Fup @ 2Hr 0.9 (0.5-2.0) mmol/L Calcium (8.4-10.2) mg/dL Magnesium (1.6-2.6) mg/dL Total Bilirubin (0.0-1.0) mg/dL Direct Bilirubin (0.0-0.5) mg/dL AST (5-37) U/L ALT (0-40) U/L Alkaline Phosphatase (39-117) U/L Total Creatine Kinase (38-174) U/L Troponin I High Sens (<3.5-35.0) ng/L B-Natriuretic Peptide (<100) pg/mL Total Protein (6.5-8.0) g/dL Albumin (3.5-5.0) g/dL Lipase (8-78) U/L Influenza Type A (PCR) NEGATIVE (Negative) Influenza Type B (PCR) NEGATIVE (Negative) RSV RNA Qual (PCR) NEGATIVE (Negative) SARS-CoV-2 RNA (RT-PCR) NEGATIVE (Negative) ECG Data Attestation: I personally reviewed and interpreted this ECG as follows: Prior ECG tracings: available for review Interpretation: EKG sinus tachycardia with short DE at a rate of 164, pr interval 96. Nonischemic/no STEMI. QTC 422 Critical Care Time Critical Care Time Critical Care Time: Yes Total Critical Care Time: 36 Attestation: > 36 minutes of critical care time was spent evaluating patient, performing chart review, reviewing labs, reviewing images, speaking to consultants/admitting patient, and re-evaluating patient Discharge Plan Discharge Clinical Impression: Bacteremia, Subacute pulmonary embolism, Endocarditis, Active substance abuse Patient Disposition: Admitted As Inpatient
[2021-09-11 20:29] LABS: Basophils Percent Auto 0.2 % (0-2); Eosinophils Percent Auto 0.2 % (0-4); Hematocrit 35.5 % (42.0-52.0); Hemoglobin 11.4 g/dl (14.0-18.0); Imm Gran Abs Auto 0.19 X10*3/uL (0.00-0.03); Imm Gran Pct Auto 1.1 % (0.0-0.4); Lymphocytes Absolute Auto 0.8 X10*3/uL (1.2-4.9); Lymphocytes Percent Auto 4.1 % (20-40); MANUAL DIFF FLAG SCAN; Mean Corpuscular HGB Conc 32.1 g/dl (31.0-36.0); Mean Corpuscular Hemoglobin 26.3 pg (27.0-33.0); Mean Platelet Volume 10.5 fL (9.4-12.4); Monocytes Absolute Auto 0.7 X10*3/uL (0.1-1.2); Monocytes Percent Auto 3.7 % (2-11); Neutrophils Absolute Auto 16.4 x10*3/uL (2.0-8.3); Neutrophils Percent Auto 90.7 % (45-73); Platelet Count 173 X10*3/uL (160-400); Red Blood Count 4.33 X10*6/uL (4.60-5.80); Red Cell Distribution Width 15.5 % (11.0-16.0); SCAN SMEAR FLAG 1; White Blood Count 18.1 X10*3/uL (4.8-10.8)
[2021-09-11] MEDS: Acetaminophen 325 MG TABLET 650 MG PO (20:30)
[2021-09-11] MEDS: ondansetron HCL 4 MG/2 ML VIAL IVPUSH (20:30)
[2021-09-11] MEDS: Acetaminophen 325 MG TABLET PO (20:30)
[2021-09-11] MEDS: Famotidine/PF 20 MG/2 ML VIAL IVPUSH (20:30)
[2021-09-11 20:41] LABS: Lactic Acid 2.1 mmol/L (0.5-2.0)
[2021-09-11 20:45] LABS: Alanine Aminotransferase 11 U/L (0-40); Albumin Level 3.2 g/dL (3.5-5.0); Alkaline Phosphatase 214 U/L (39-117); Anion Gap 13 (12-20); Aspartate Amino Transferase 16 U/L (5-37); Bilirubin Direct 0.9 mg/dL (0.0-0.5); Bilirubin Total 1.1 mg/dL (0.0-1.0); Blood Urea Nitrogen 16 mg/dL (9-16); Calcium 8.4 mg/dL (8.4-10.2); Carbon Dioxide 20 mmol/L (22-29); Chloride 106 mmol/L (96-108); Creatinine Clr Calc Pharmacy 90.2; Estimated Glomerular Filt Rate > 60; Glucose Random 99 mg/dL (60-115); Lipase 14 U/L (8-78); Magnesium 1.5 mg/dL (1.6-2.6); Potassium 3.8 mmol/L (3.3-5.1); Sodium 135 mmol/L (135-145); Total Protein 6.8 g/dL (6.5-8.0)
[2021-09-11] MEDS: vancomycin HCL 1,250 MG in 0.9 % Sodium Chloride 250 ML 166.67 MG IV (20:48)
[2021-09-11 20:50] LABS: B Type Natriuretic Peptide 208 pg/mL (<100); Troponin-I High Sensitivity 29.4 ng/L (<3.5-35.0)
[2021-09-11 20:52] VITALS: BP 90/47; PULSE 142; RESP 18; O2SAT 98
--- NOTE | 2021-09-11 20:58 | PHA.PROG ---
Admission Date/Time: Indication: ENDOCARDITIS Weight in k.967 kg Adjusted body weight in Kg: Paulina body weight in Kg: Obesity Dosing Indication % IBW: Serum Creatinine - Last 168 Hours 09/11/21 20:20 Creatinine 0.98 Estimated CrCl and GFR - Last 168 Hours 09/11/21 20:20 Estim Creat Clear Calc 90.2 Estimated GFR > 60 Vancomycin Loading Dose: 1250MG (21MG/KG) Current Vancomycin Dosing Regimen: 750MG IV Q12H Vancomycin Monitoring using AUC goal of 400 - 600 range with trough as surrogate marker: AUC 417; TROUGH 12.6 Date and Time for next Vancomycin Level to be drawn: 09/16 @ 0700 Pharmacist Comments on Vancomycin Plan: Vancomycin dosing will take advantage of FoxyP2 as a clinical decision support tool that uses Bayesian modeling to calculate individual patient's pharmacokinetic parameters and forecast the patient's drug concentration time course with the target goal AUC 24 range of 400 - 600 mg/L/hr.
[2021-09-11 21:05] LABS: SLIDE REVIEW VERIFIED
[2021-09-11 21:10] LABS: Influenza A PCR NEGATIVE (Negative); Influenza B PCR NEGATIVE (Negative); Resp Syncy Virus RNA Qual PCR NEGATIVE (Negative); SARS COV2 PCR INHOUSE NEGATIVE (Negative)
[2021-09-11 21:15] VITALS: BP 87/41; PULSE 148; RESP 21; O2SAT 95
[2021-09-11] MEDS: iohexoL 350 MG/ML 100 ML INFUS..BTL IV (21:47)
[2021-09-11 22:00] VITALS: BP 103/49; PULSE 136; RESP 19; TEMP 37.4; O2SAT 95
[2021-09-11] MEDS: Magnesium Sulfate/H2O 2 GM/50 ML PIGGYBACK IV (22:05)
[2021-09-11 22:25] LABS: Reflex Lactate? Lactic Acid Added
[2021-09-11] MEDS: Piperacillin Sodium/Tazobactam 3.375 GM in 0.9 % Sodium Chloride 50 ML IV (22:25)
[2021-09-11 22:26] VITALS: RESP 17
[2021-09-11] MEDS: HYDROmorphone HCl 0.5 MG/0.5 ML SYRINGE IVPUSH (22:26)
--- NOTE | 2021-09-11 22:42 | PM.IMHP ---
History of Present Illness Date of Service: 09/11/21 Chief Complaint: chest pain 30M with PMH of IVDA, endocarditis, tricuspid valve stenosis, pulmonary embolism on Xarelto-noncompliant, history of hep C, IV drug abuse/opiate dependence, history of bacteremia, hepatic steatosis, history of tricuspid valve replacement with bioprosthetic valve; recent admission in July of 2021 to [facility] [place] for endocarditis-left AMA, interrupted antibiotic therapy; presented back today to the hospital with a chief complaint of chest pain and shortness of breath. Patient is a poor historian-on Zosyn yes or no for most of the questions; mentions that since he will left AMA from [facility] [place] he was presented back to the hospital today with chest pain. Mentioned that since pain is going on for few weeks; complains of shortness of breath. Denies any nausea vomiting or diarrhea. Reports he has been using IV drugs. Denies any numbness tingling or focal weakness. Reports he has mild diffuse abdominal discomfort. Review of all other systems is negative ER course: Per ER team patient noted to be in sepsis,-tachycardic, lactic acidosis, soft blood pressure, leukocytosis; given broad-spectrum antibiotics; CT chest was done which showed chronic/subacute PE but no evidence of acute PE. And other findings on the cc improved compared to prior. CT abdomen pelvis was pending. EKG was nonischemic Patient has not been taking his home medications. [facility] Medical History Anasarca Bacteremia Drug abuse and dependence Endocarditis HCV (hepatitis C virus) Pulmonary embolism Steatosis, liver Tricuspid valve stenosis Pertinent family history: reviewed Surgical History History of tricuspid valve replacement with bioprosthetic valve Social History Household Members: Unknown / Unable to assess Housing: Homeless Do you presently have visiting nurse or other home services: No Unable to assess alcohol history related to: Refusing to respond Alcohol intake: never Patient Tobacco Use Status: Current everyday Tobacco user Tobacco use type: Cigarette Substance Use Type: Crack/Cocaine, Heroin, Marijuana and Opiates Advance Directives: No Advance Directives Information Provided: Yes service: No Current occupational status: unemployed Meds Allergies Allergy/AdvReac Type Severity Reaction Status Date / Time No Known Allergies Allergy Unverified 07/05/20 15:53 [No Known Allergies*] Active Medications: Current Medications Acetaminophen (Acetaminophen 325 Mg Tablet) 650 mg PO Q6H PRN PRN Reason: Pain, Mild (Pain Scale 1-3) Hydromorphone HCl (Hydromorphone Hcl 0.5 Mg/0.5 Ml Syringe) 0.5 mg IVPUSH Q4H PRN; Protocol PRN Reason: Breakthrough Pain Vancomycin HCl 750 mg/ Sodium (Chloride) 265 mls @ 265 mls/hr IV Q12H CRISTINA Magnesium Sulfate (Magnesium Sulfate/H2o) 2 gm in 50 mls @ 25 mls/hr IV ONCE ONE Stop: 09/11/21 23:22 Last Admin: 09/11/21 22:05 Dose: 25 mls/hr Documented by: Sodium Chloride (Ns) 1,000 mls @ 999 mls/hr IVCONT .Q1H1M CRISTINA Stop: 09/11/21 23:00 Last Admin: 09/11/21 22:04 Dose: 999 mls/hr Documented by: Dextrose/Sodium Chloride ([id number]/2ns) 1,000 mls @ 100 mls/hr IVCONT .Q10H CRISTINA Vancomycin HCl 1,000 mg/ (Sodium Chloride) 270 mls @ 270 mls/hr IV Q12H CRISTINA Piperacillin Sod/Tazobactam (Sod 3.375 gm/ Sodium Chloride) 50 mls @ 100 mls/hr IV Q6H CRISTINA Melatonin (Melatonin 3 Mg Tablet) 6 mg PO BEDTIME PRN PRN Reason: Insomnia Oxycodone HCl (Oxycodone Hcl Immed Release 5 Mg Tablet) 5 mg PO Q6H PRN PRN Reason: Pain, Severe (Pain Scale 7-10) Pharmacy Consult (Consult Rx Perform Med Rec) 1 each MISCELLANE ONCE PRN PRN Reason: Consult order Pharmacy Consult (Consult Rx Vancomycin Dosing) 1 each MISCELLANE DAILY PRN PRN Reason: Consult order Pharmacy Consult (Consult Rx Vancomycin Dosing) 1 each MISCELLANE DAILY PRN PRN Reason: Consult order Senna (Sennosides 8.6 Mg Tablet) 17.2 mg PO BEDTIME PRN PRN Reason: Constipation Sodium Chloride (0.9 % Sodium Chloride Flush 3 Ml Syringe) 3 ml IVFLUSH QSHIFT [facility] Home Medications Medication Instructions Recorded Confirmed Last Taken Type gabapentin 300 mg capsule 1 cap PO TID 09/11/21 09/11/21 Unknown History rivaroxaban 20 mg tablet (Xarelto) 1 tab PO DAILY 09/11/21 09/11/21 Unknown History Physical Exam Vital Signs and Narrative: Vital Signs: Last Vital Signs Temp 99.3 F 09/11/21 22:00 Pulse 136 H 09/11/21 22:00 Resp 17 09/11/21 22:26 BP 103/49 L 09/11/21 22:00 Pulse Ox 95 09/11/21 22:00 Body Mass Index 22.1 Gen: Appears be in no acute distress HEENT: NCAT, dry mucosa. Pulmonary: Vesicular breath sounds, fair air entry CVS: Normal present Abdomen: BS+, Soft, mildly tender diffusely Extremities: Warm well perfused Neuro: Alert and awake. Results Labs CBC and Chem 7: 09/11/21 20:20 09/11/21 20:20 Labs: Laboratory Results - last 24 hr 09/11/21 09/11/21 09/11/21 20:13 20:20 20:20 MCV 82.0 MCH 26.3 L MCHC 32.1 RDW 15.5 Plt Count 173 MPV 10.5 Immature Gran % (Auto) 1.1 H Neut % (Auto) 90.7 H Lymph % (Auto) 4.1 L [place] % (Auto) 3.7 Eos % (Auto) 0.2 Baso % (Auto) 0.2 Lymph # (Auto) 0.8 L [place] # (Auto) 0.7 Eos # (Auto) 0.0 Baso # (Auto) 0.0 Abs Immat Gran (auto) 0.19 H Absolute Neuts (auto) 16.4 H Absolute Nucleated RBC 0.000 Nucleated RBC % (auto) 0.0 Smear Tech's Comments VERIFIED Anion Gap 13 Estim Creat Clear Calc 90.2 Estimated GFR > 60 POC Glucose 111 Random Glucose 99 Lactic Acid Calcium 8.4 D Magnesium 1.5 L Total Bilirubin 1.1 H Direct Bilirubin 0.9 H AST 16 ALT 11 Alkaline Phosphatase 214 H D Total Creatine Kinase 28 L Troponin I High Sens B-Natriuretic Peptide Total Protein 6.8 D Albumin 3.2 L D Lipase 14 Influenza Type A (PCR) Influenza Type B (PCR) RSV RNA Qual (PCR) SARS-CoV-2 RNA (RT-PCR) 09/11/21 09/11/21 09/11/21 20:20 20:20 20:20 MCV MCH MCHC RDW Plt Count MPV Immature Gran % (Auto) Neut % (Auto) Lymph % (Auto) [place] % (Auto) Eos % (Auto) Baso % (Auto) Lymph # (Auto) [place] # (Auto) Eos # (Auto) Baso # (Auto) Abs Immat Gran (auto) Absolute Neuts (auto) Absolute Nucleated RBC Nucleated RBC % (auto) Smear Tech's Comments Anion Gap Estim Creat Clear Calc Estimated GFR POC Glucose Random Glucose Lactic Acid 2.1 H* Calcium Magnesium Total Bilirubin Direct Bilirubin AST ALT Alkaline Phosphatase Total Creatine Kinase Troponin I High Sens 29.4 D B-Natriuretic Peptide 208 H Total Protein Albumin Lipase Influenza Type A (PCR) Influenza Type B (PCR) RSV RNA Qual (PCR) SARS-CoV-2 RNA (RT-PCR) 09/11/21 20:26 MCV MCH MCHC RDW Plt Count MPV Immature Gran % (Auto) Neut % (Auto) Lymph % (Auto) [place] % (Auto) Eos % (Auto) Baso % (Auto) Lymph # (Auto) [place] # (Auto) Eos # (Auto) Baso # (Auto) Abs Immat Gran (auto) Absolute Neuts (auto) Absolute Nucleated RBC Nucleated RBC % (auto) Smear Tech's Comments Anion Gap Estim Creat Clear Calc Estimated GFR POC Glucose Random Glucose Lactic Acid Calcium Magnesium Total Bilirubin Direct Bilirubin AST ALT Alkaline Phosphatase Total Creatine Kinase Troponin I High Sens B-Natriuretic Peptide Total Protein Albumin Lipase Influenza Type A (PCR) NEGATIVE Influenza Type B (PCR) NEGATIVE RSV RNA Qual (PCR) NEGATIVE SARS-CoV-2 RNA (RT-PCR) NEGATIVE Imaging Radiologist's Impressions: Impressions Chest X-Ray 09/11/21 19:57 IMPRESSION: No acute cardiopulmonary findings. Chest CTA 09/11/21 21:23 IMPRESSION: No definite acute pulmonary emboli but there are abnormalities seen in the pulmonary vasculature which could be chronic with contraction of the vessels which fill poorly. Extensive pulmonary masses, some cavitary have resolved with some pulmonary parenchymal abnormalities at this time described above. VTE: Positive, most likely chronic or subacute Assessment and Plan (1) Right heart failure: Status: Acute (2) Opioid use disorder: Status: Acute (3) Drug abuse and dependence: Status: Acute (4) Tricuspid valve stenosis: Status: Acute (5) Pulmonary embolism: Status: Acute (6) Chest pain: Status: Acute (7) Sepsis: Status: Acute 30M with PMH of IVDA, endocarditis, tricuspid valve stenosis, pulmonary embolism on Xarelto-noncompliant, history of hep C, IV drug abuse/opiate dependence, history of bacteremia, hepatic steatosis, history of tricuspid valve replacement with bioprosthetic valve; recent admission in July of 2021 to [facility] [place] for endocarditis-left AMA, interrupted antibiotic therapy; presented back today to the hospital with a chief complaint of chest pain and shortness of breath. Sepsis: Patient has history of endocarditis. Intraparotid therapy. Continue IV vancomycin Follow-up cultures Id consult Chest pain: Atypical in nature. Telemetry. Cycle cardiac enzymes. EKG nonischemic. Abdominal discomfort: No guarding or rigidity on exam. CT abdomen is pending. History of the tricuspid valve replacement/tricuspid stenosis/endocarditis, patient has been tachycardic to 130s we will consult Cardiology for further recommendations Echocardiogram History of substance abuse/opiate dependence: Monitor on [facility] protocol. Addiction Medicine consult DVT prophylaxis: Patient on Xarelto Code status: Full code Quality Stroke Does the patient have a stroke diagnosis?: No VTE Prior VTE?: Yes VTE Risk Level:: Medical - moderate - high VTE Device Contraindication: N/A - Device Ordered VTE Drug Contraindication: Treatment Not Indicated
[2021-09-11 22:55] LABS: ~Lactic Acid-LAB USE ONLY 0.9 mmol/L (0.5-2.0)
[2021-09-11 23:44] VITALS: BP 100/56; PULSE 112; RESP 18; TEMP 37; O2SAT 98
[2021-09-11] MEDS: Dextrose 5 % and 0.45 % NaCl 1,000 ML 100 ML IVCONT (23:48)
[2021-09-12] VITALS (12 sets, daily range): BP systolic 93–128; BP diastolic 52–73; PULSE 84–103; RESP 14–24; TEMP 36.8–37; O2SAT 93–99
--- NOTE | 2021-09-12 01:13 | PC.NURSE ---
Pt was transported to CT for abd CT, this RN present. When informed staff would be transferring pt from stretcher to CT table, pt states no, I don't want to do that shit, I don't care. This RN educated pt regarding importance of obtaining images. Pt refused. Pt returned to room. MD aware. Pt then requesting PO. Per Dr Omalley, pt OK for PO clears only. Pt made aware, requesting chicken salad. Pt returned to sleep prior to being re-educated. Pt has remained asleep on stretcher in NAD, breathing with ease on RA, skin warm dry and normal in appearance for age and race with equal chest rise and fall bilaterally. Stretcher in lowest locked position, rails raised, call pierce within reach.
--- NOTE | 2021-09-12 01:41 | PC.NURSE ---
Pt requesting Dr Omalley to bedside so he can leave AMA. Pt requesting chicken salad sandwich despite clear diet. This rn contacted Dr Omalley who states no, he shouldn't leave. he's very sick. feed him what he wants and if he's having pain afterwards, we'll get a CT scan of his abdomen. Pt provided chicken salad sandwich per request, informed of plan for abd CT after if he has pain. Pt agreeable. Pt aaox4. Pt has not urinated. Pt given urinal but unsuccessful while lying down. Pt bladder scanned, 408mL in bladder. Plan for this RN and [facility] PCT to assist pt to standing to attempt to urinate.
--- NOTE | 2021-09-12 01:52 | PC.NURSE ---
Pt stands independently without complaints of dizziness or weakness. Pt urinated into urinal, ~400mL. Pt urine sent to lab for processing per orders. Pt returned to stretcher without incidence. Stretcher low locked position, rails raised, call pierce within reach.
[2021-09-12 01:56] LABS: Appearance Urine CLEAR; Color Urine YELLOW; Glucose Urine UA NEG (NEG); Leukocyte Esterase Urine NEG (NEG); Nitrite Urine NEG (NEG); PH 5.5 (5.0-8.0); Specific Gravity - Urine <= 1.005 (1.005-1.025); UACC Culture Trigger NO; Urine Blood 3+ (NEG); Urine Ketones NEG (NEG); Urine Protein 1+ MG/DL (NEG-TRACE)
[2021-09-12 02:08] LABS: Squamous Epithelial Cell Urine TRACE /LPF; WBC Urine 0-2 /HPF (0-4)
[2021-09-12 02:17] LABS: Amphetamine Screen Urine Not Detected (Not Detect); Barbiturates, Urine Not Detected (Not Detect); Benzodiazepines Screen Urine Not Detected (Not Detect); Cannabinoid Screen Urine POSITIVE (Not Detect); Cocaine Screen Urine POSITIVE (Not Detect); Fentanyl, urine POSITIVE (Not Detect); Opiate Screen Urine POSITIVE (Not Detect); Phencyclidine Screen Urine Not Detected (Not Detect)
--- NOTE | 2021-09-12 03:35 | PC.NURSE ---
pt asleep on stretcher in between nursing care, in NAD, breathing with ease on RA. Pt's IVF infusing appropriately. pt awaiting bed assignment.
[2021-09-12] MEDS: Piperacillin Sodium/Tazobactam 3.375 GM in 0.9 % Sodium Chloride 50 ML IV ×4 (04:03→22:56)
--- NOTE | 2021-09-12 04:08 | PC.NURSE ---
While this RN at bedside to medicate with abx per MAR, pt wakes from sleep and states I hate this [facility]. This RN asks pt how his visit can be improved. Pt requests telephone. This RN attempting to locate patient use phone for patient. Pt then states I'm leaving mad early, bro. What time is it? Pt informed of time. Pt states I'm leaving like around 8 and I'll come back later. This RN asks pt why he plans on leaving at 8am. Pt states because I want some [facility] Thanksgiving food. Pt encouraged to remain in hospital until safe for DC but pt states I'm not doing this shit, bro.
--- NOTE | 2021-09-12 04:15 | PC.NURSE ---
Pt provided with phone for use per request. Pt unable to make phone call d/t lethargy and repeatedly falling asleep while being provided with phone. Will provide pt with phone for use once pt is more awake.
--- NOTE | 2021-09-12 08:30 | P.PNIM_ITS ---
Subjective Subjective Date of Service: 09/12/21 Interval History: cc: ams interval history: feeling withdrawal Cardiovascular Cardiovascular: Reports no additional cardiovascular complaints Respiratory Respiratory: Reports no additional respiratory complaints Physical Exam Vital Signs: Vital Signs: Last Vital Signs Temp 98.6 F 09/11/21 23:44 Pulse 85 09/12/21 06:13 Resp 15 09/12/21 06:13 BP 97/54 L 09/12/21 06:13 Pulse Ox 97 09/12/21 05:50 Body Mass Index 22.1 General: lethargic O X 3, ill appearing Resp: CTA bilateral, no accessory muscles used CVS: S1,S2,RRR, murmur, no edema GI: soft, non tender, non distended Neuro: motor grossly intact, alert Psych: indifferent affect, poor insight Objective Data Active Medications Acetaminophen (Acetaminophen 325 Mg Tablet) 650 mg PO Q6H PRN PRN Reason: Pain, Mild (Pain Scale 1-3) Gabapentin (Gabapentin 300 Mg Capsule) 300 mg PO TID [facility] Hydromorphone HCl (Hydromorphone Hcl 0.5 Mg/0.5 Ml Syringe) 0.5 mg IVPUSH Q4H PRN; Protocol PRN Reason: Breakthrough Pain Vancomycin HCl 750 mg/ Sodium (Chloride) 265 mls @ 265 mls/hr IV Q12H [facility] Dextrose/Sodium Chloride (D51/2ns) 1,000 mls @ 100 mls/hr IVCONT .Q10H [facility] Last Admin: 09/11/21 23:48 Dose: 100 mls/hr Documented by: AN Piperacillin Sod/Tazobactam (Sod 3.375 gm/ Sodium Chloride) 50 mls @ 100 mls/hr IV Q6H [facility] Last Infusion: 09/12/21 04:44 Dose: 0 mls/hr Documented by: AN Melatonin (Melatonin 3 Mg Tablet) 6 mg PO BEDTIME PRN PRN Reason: Insomnia Metoprolol Tartrate (Metoprolol Tartrate 12.5 Mg Halftab) 12.5 mg PO BID [facility]; Protocol Oxycodone HCl (Oxycodone Hcl Immed Release 5 Mg Tablet) 5 mg PO Q6H PRN PRN Reason: Pain, Severe (Pain Scale 7-10) Pharmacy Consult (Consult Rx Perform Med Rec) 1 each MISCELLANE ONCE PRN PRN Reason: Consult order Pharmacy Consult (Consult Rx Vancomycin Dosing) 1 each MISCELLANE DAILY PRN PRN Reason: Consult order Rivaroxaban (Rivaroxaban 20 Mg Tablet) 20 mg PO DAILY [facility] Senna (Sennosides 8.6 Mg Tablet) 17.2 mg PO BEDTIME PRN PRN Reason: Constipation Sodium Chloride (0.9 % Sodium Chloride Flush 3 Ml Syringe) 3 ml IVFLUSH QSHIFT [facility] Last Admin: 09/11/21 23:49 Dose: Not Given Documented by: AN Non-Admin Reason: Med Not Available Labs CBC & Chem 7: 09/11/21 20:20 09/11/21 20:20 Labs: Laboratory Results - last 24 hr 09/11/21 09/11/21 09/11/21 20:13 20:20 20:20 MCV 82.0 MCH 26.3 L MCHC 32.1 RDW 15.5 Plt Count 173 MPV 10.5 Immature Gran % (Auto) 1.1 H Neut % (Auto) 90.7 H Lymph % (Auto) 4.1 L [place] % (Auto) 3.7 Eos % (Auto) 0.2 Baso % (Auto) 0.2 Lymph # (Auto) 0.8 L [place] # (Auto) 0.7 Eos # (Auto) 0.0 Baso # (Auto) 0.0 Abs Immat Gran (auto) 0.19 H Absolute Neuts (auto) 16.4 H Absolute Nucleated RBC 0.000 Nucleated RBC % (auto) 0.0 Smear Tech's Comments VERIFIED Anion Gap 13 Estim Creat Clear Calc 90.2 Estimated GFR > 60 POC Glucose 111 Random Glucose 99 Lactic Acid Lactic Acid Fup @ 2Hr Calcium 8.4 D Magnesium 1.5 L Total Bilirubin 1.1 H Direct Bilirubin 0.9 H AST 16 ALT 11 Alkaline Phosphatase 214 H D Total Creatine Kinase 28 L Troponin I High Sens B-Natriuretic Peptide Total Protein 6.8 D Albumin 3.2 L D Lipase 14 Urine Color Urine Appearance Urine pH Ur Specific [place] Urine Protein Urine Glucose (UA) Urine Ketones Urine Blood Urine Nitrite Ur Leukocyte Esterase Urine RBC Urine WBC Ur Squamous Epith Cells Urine Bacteria Urine Opiates Screen Urine Fentanyl Screen Ur Barbiturates Screen Ur Phencyclidine Scrn Ur Amphetamines Screen U Benzodiazepines Scrn Urine Cocaine Screen U Marijuana (THC) Screen Influenza Type A (PCR) Influenza Type B (PCR) RSV RNA Qual (PCR) SARS-CoV-2 RNA (RT-PCR) 09/11/21 09/11/21 09/11/21 20:20 20:20 20:20 MCV MCH MCHC RDW Plt Count MPV Immature Gran % (Auto) Neut % (Auto) Lymph % (Auto) [place] % (Auto) Eos % (Auto) Baso % (Auto) Lymph # (Auto) [place] # (Auto) Eos # (Auto) Baso # (Auto) Abs Immat Gran (auto) Absolute Neuts (auto) Absolute Nucleated RBC Nucleated RBC % (auto) Smear Tech's Comments Anion Gap Estim Creat Clear Calc Estimated GFR POC Glucose Random Glucose Lactic Acid 2.1 H* Lactic Acid Fup @ 2Hr Calcium Magnesium Total Bilirubin Direct Bilirubin AST ALT Alkaline Phosphatase Total Creatine Kinase Troponin I High Sens 29.4 D B-Natriuretic Peptide 208 H Total Protein Albumin Lipase Urine Color Urine Appearance Urine pH Ur Specific [place] Urine Protein Urine Glucose (UA) Urine Ketones Urine Blood Urine Nitrite Ur Leukocyte Esterase Urine RBC Urine WBC Ur Squamous Epith Cells Urine Bacteria Urine Opiates Screen Urine Fentanyl Screen Ur Barbiturates Screen Ur Phencyclidine Scrn Ur Amphetamines Screen U Benzodiazepines Scrn Urine Cocaine Screen U Marijuana (THC) Screen Influenza Type A (PCR) Influenza Type B (PCR) RSV RNA Qual (PCR) SARS-CoV-2 RNA (RT-PCR) 09/11/21 09/11/21 09/12/21 20:26 22:31 01:50 MCV MCH MCHC RDW Plt Count MPV Immature Gran % (Auto) Neut % (Auto) Lymph % (Auto) [place] % (Auto) Eos % (Auto) Baso % (Auto) Lymph # (Auto) [place] # (Auto) Eos # (Auto) Baso # (Auto) Abs Immat Gran (auto) Absolute Neuts (auto) Absolute Nucleated RBC Nucleated RBC % (auto) Smear Tech's Comments Anion Gap Estim Creat Clear Calc Estimated GFR POC Glucose Random Glucose Lactic Acid Lactic Acid Fup @ 2Hr 0.9 Calcium Magnesium Total Bilirubin Direct Bilirubin AST ALT Alkaline Phosphatase Total Creatine Kinase Troponin I High Sens B-Natriuretic Peptide Total Protein Albumin Lipase Urine Color Urine Appearance Urine pH Ur Specific [place] Urine Protein Urine Glucose (UA) Urine Ketones Urine Blood Urine Nitrite Ur Leukocyte Esterase Urine RBC Urine WBC Ur Squamous Epith Cells Urine Bacteria Urine Opiates Screen POSITIVE H Urine Fentanyl Screen POSITIVE H Ur Barbiturates Screen Not Detected Ur Phencyclidine Scrn Not Detected Ur Amphetamines Screen Not Detected U Benzodiazepines Scrn Not Detected Urine Cocaine Screen POSITIVE H U Marijuana (THC) Screen POSITIVE H Influenza Type A (PCR) NEGATIVE Influenza Type B (PCR) NEGATIVE RSV RNA Qual (PCR) NEGATIVE SARS-CoV-2 RNA (RT-PCR) NEGATIVE 09/12/21 01:50 MCV MCH MCHC RDW Plt Count MPV Immature Gran % (Auto) Neut % (Auto) Lymph % (Auto) [place] % (Auto) Eos % (Auto) Baso % (Auto) Lymph # (Auto) [place] # (Auto) Eos # (Auto) Baso # (Auto) Abs Immat Gran (auto) Absolute Neuts (auto) Absolute Nucleated RBC Nucleated RBC % (auto) Smear Tech's Comments Anion Gap Estim Creat Clear Calc Estimated GFR POC Glucose Random Glucose Lactic Acid Lactic Acid Fup @ 2Hr Calcium Magnesium Total Bilirubin Direct Bilirubin AST ALT Alkaline Phosphatase Total Creatine Kinase Troponin I High Sens B-Natriuretic Peptide Total Protein Albumin Lipase Urine Color YELLOW Urine Appearance CLEAR Urine pH 5.5 Ur Specific [place] <= 1.005 Urine Protein 1+ H Urine Glucose (UA) NEG Urine Ketones NEG Urine Blood 3+ H Urine Nitrite NEG Ur Leukocyte Esterase NEG Urine RBC 5-9 H Urine WBC 0-2 Ur Squamous Epith Cells TRACE Urine Bacteria NONE Urine Opiates Screen Urine Fentanyl Screen Ur Barbiturates Screen Ur Phencyclidine Scrn Ur Amphetamines Screen U Benzodiazepines Scrn Urine Cocaine Screen U Marijuana (THC) Screen Influenza Type A (PCR) Influenza Type B (PCR) RSV RNA Qual (PCR) SARS-CoV-2 RNA (RT-PCR) Assessment and Plan (1) Sepsis: Status: Acute Assessment and Plan: 30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 found to be septic. severe sepsis due to recurrent endocarditis in patient with IVDA continue vanc, zosyn, follow up cultures, ID grew strep sanguinis and mitis in june 2021, before that MSSA was previously referred to [facility] for severe TS and 1.5cm vegetation, however, risks of surgery deemed to outweigh benefits as patient likely to continue using and reinfect any new prosthesis. 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
[2021-09-12] MEDS: vancomycin HCL 750 MG in 0.9 % Sodium Chloride 250 ML 265 MG IV (08:42)
[2021-09-12] MEDS: Metoprolol Tartrate 12.5 MG HALFTAB PO ×2 (08:43→20:52)
[2021-09-12] MEDS: Gabapentin 300 MG CAPSULE PO ×3 (08:43→20:56)
[2021-09-12] MEDS: Rivaroxaban 20 MG TABLET PO (08:43)
--- NOTE | 2021-09-12 10:49 | MHC.CM.PN ---
Attempted to meet with pt to discuss d/c planning needs: Pt drowsy: falling asleep during interview and/or becoming feisty threatening to leave AMA. Review of EMR notes pt is homeless and has an IVDU hx: Pt recenly at [facility] with Bacteremia in the setting of valve replacement - left AMA and did not complete ATB tx. CM discussed importance of completing ATB - informed pt that CARE team would assist with MAT if pt desired and CM could assist with halfway and/or STR placement. Pt requesting sandwiches and wanting to leave AMA. States he has no intent of going to STR for LT IV ATB and will just leave . Pt has very little insight into the gravity of his situation and is dismissive of conversation related to health management. Unsure of d/c needs at this time. It seems likely that pt will not complete tx and will leave AMA. Unknown COVID vax status: listed as provider from [facility] CM to follow.
--- NOTE | 2021-09-12 10:54 | PC.NURSE ---
PATIENT REFUSED BLOOD WORK RN NOTIFIED
[2021-09-12 20:13] LABS: Basophils Absolute Auto 0.1 X10*3/uL (0.0-0.2); Basophils Percent Auto 0.3 % (0-2); Eosinophils Absolute Auto 0.2 X10*3/uL (0.0-0.4); Eosinophils Percent Auto 1.1 % (0-4); Hemoglobin 10.4 g/dl (14.0-18.0); Imm Gran Pct Auto 0.6 % (0.0-0.4); Lymphocytes Absolute Auto 2.2 X10*3/uL (1.2-4.9); Lymphocytes Percent Auto 13.2 % (20-40); MANUAL DIFF FLAG NO; Mean Corpuscular HGB Conc 31.5 g/dl (31.0-36.0); Mean Corpuscular Hemoglobin 26.2 pg (27.0-33.0); Mean Corpuscular Volume 83.1 fL (80.0-98.0); Mean Platelet Volume 10.9 fL (9.4-12.4); Neutrophils Absolute Auto 12.9 x10*3/uL (2.0-8.3); Neutrophils Percent Auto 78.8 % (45-73); Platelet Count 154 X10*3/uL (160-400); Red Blood Count 3.97 X10*6/uL (4.60-5.80); Red Cell Distribution Width 15.8 % (11.0-16.0); White Blood Count 16.3 X10*3/uL (4.8-10.8)
[2021-09-12 20:31] LABS: Anion Gap 11 (12-20); Blood Urea Nitrogen 16 mg/dL (9-16); Calcium 8.1 mg/dL (8.4-10.2); Carbon Dioxide 19 mmol/L (22-29); Chloride 112 mmol/L (96-108); Estimated Glomerular Filt Rate > 60; Glucose Random 113 mg/dL (60-115); Potassium 3.5 mmol/L (3.3-5.1); Sodium 138 mmol/L (135-145)
[2021-09-12 20:38] LABS: Glucose, Whole Blood 108 mg/dL (60-115)
[2021-09-12] MEDS: vancomycin HCL 750 MG in 0.9 % Sodium Chloride 250 ML 250 MG IV (20:53)
[2021-09-12] MEDS: methADONE HCl 20 MG/2 ML ORAL.CONC 25 MG PO (22:50)
[2021-09-13] MEDS: 0.9 % Sodium Chloride Flush 3 ML SYRINGE IVFLUSH ×4 (00:08→23:23)
[2021-09-13] MEDS: Piperacillin Sodium/Tazobactam 3.375 GM in 0.9 % Sodium Chloride 50 ML IV ×2 (03:49→10:00)
[2021-09-13 05:54] VITALS: BP 134/78; PULSE 76; RESP 18; O2SAT 98
[2021-09-13 07:00] LABS: Hematocrit 33.8 % (42.0-52.0); Hemoglobin 10.6 g/dl (14.0-18.0); Mean Corpuscular HGB Conc 31.4 g/dl (31.0-36.0); Mean Corpuscular Hemoglobin 25.8 pg (27.0-33.0); Mean Corpuscular Volume 82.2 fL (80.0-98.0); Mean Platelet Volume 10.9 fL (9.4-12.4); Platelet Count 180 X10*3/uL (160-400); Red Blood Count 4.11 X10*6/uL (4.60-5.80); Red Cell Distribution Width 15.9 % (11.0-16.0); White Blood Count 15.3 X10*3/uL (4.8-10.8)
[2021-09-13 07:22] LABS: Glucose, Whole Blood 77 mg/dL (60-115)
[2021-09-13 07:24] LABS: Anion Gap 11 (12-20); Blood Urea Nitrogen 16 mg/dL (9-16); Calcium 8.1 mg/dL (8.4-10.2); Carbon Dioxide 18 mmol/L (22-29); Chloride 113 mmol/L (96-108); Creatinine Clr Calc Pharmacy 109.3; Estimated Glomerular Filt Rate > 60; Glucose Fasting 95 mg/dL (60-99); Potassium 3.6 mmol/L (3.3-5.1); Sodium 138 mmol/L (135-145)
[2021-09-13 07:30] LABS: Vancomycin Trough 13.1 mcg/mL (10.0-20.0)
--- NOTE | 2021-09-13 07:53 | PHA.PROG ---
Admission Date/Time: September 11, 2021 22:35 Indication: Weight in k kg Adjusted body weight in Kg: Richards body weight in Kg: Obesity Dosing Indication % IBW: Serum Creatinine - Last 168 Hours 09/11/21 09/12/21 09/12/21 20:20 19:54 19:54 Creatinine 0.98 1.06 Cancelled 09/13/21 06:45 Creatinine 0.96 Estimated CrCl and GFR - Last 168 Hours 09/11/21 09/12/21 09/12/21 20:20 19:54 19:54 Estim Creat Clear Calc 90.2 99.0 Cancelled Estimated GFR > 60 > 60 Cancelled 09/13/21 06:45 Estim Creat Clear Calc 109.3 Estimated GFR > 60 Vancomycin Loading Dose: 1250 MG X1 DOSE Current Vancomycin Dosing Regimen: 750 MG q12h Vancomycin Monitoring using AUC goal of 400 - 600 range with trough as surrogate marker: Due to the severity of the infection, I would like to treat to a higher AUC value. Increasing to a dose of 1000 mg q12H, will result in a AUC of 560 and a estimated trough of 16.9, which would be in the goal of 15-20. Date and Time for next Vancomycin Level to be drawn: 09/14 @ 1900 Vancomycin Trough 13.1 mcg/mL (10.0-20.0) 09/13/21 06:46 Pharmacist Comments on Vancomycin Plan: Vancomycin dosing will take advantage of [employer] as a clinical decision support tool that uses Bayesian modeling to calculate individual patient's pharmacokinetic parameters and forecast the patient's drug concentration time course with the target goal AUC 24 range of 400 - 600 mg/L/hr.
[2021-09-13 08:15] VITALS: BP 139/77; PULSE 108; RESP 20; TEMP 37.3; O2SAT 96
[2021-09-13] MEDS: Gabapentin 300 MG CAPSULE PO ×3 (08:19→20:12)
[2021-09-13] MEDS: Metoprolol Tartrate 12.5 MG HALFTAB PO ×2 (08:19→20:12)
[2021-09-13] MEDS: vancomycin HCL 1,000 MG in 0.9 % Sodium Chloride 250 ML 270 MG IV (08:19)
[2021-09-13] MEDS: Rivaroxaban 20 MG TABLET PO (08:35)
--- NOTE | 2021-09-13 11:42 | P.PNIM_ITS ---
Subjective Subjective Date of Service: 09/13/21 Interval History: cc: ams interval history: comfortable now Cardiovascular Cardiovascular: Reports no additional cardiovascular complaints Respiratory Respiratory: Reports no additional respiratory complaints Physical Exam Vital Signs: Vital Signs: Last Vital Signs Temp 99.2 F 09/13/21 08:15 Pulse 108 H 09/13/21 08:15 Resp 20 09/13/21 08:15 BP 139/77 09/13/21 08:15 Pulse Ox 96 09/13/21 08:15 Body Mass Index 22.1 General: lethargic O X 3, ill appearing Resp:? CTA bilateral, no accessory muscles used CVS: S1,S2,RRR, murmur, no edema GI: soft, non tender, non distended Neuro:? motor grossly intact, alert Psych: indifferent affect, poor insight? Objective Data Active Medications Acetaminophen (Acetaminophen 325 Mg Tablet) 650 mg PO Q6H PRN PRN Reason: Pain, Mild (Pain Scale 1-3) Gabapentin (Gabapentin 300 Mg Capsule) 300 mg PO TID [facility] Last Admin: 09/13/21 08:19 Dose: 300 mg Documented by: MARY LOU Piperacillin Sod/Tazobactam (Sod 3.375 gm/ Sodium Chloride) 50 mls @ 100 mls/hr IV Q6H [facility] Last Infusion: 09/13/21 10:30 Dose: 0 mls/hr Documented by: MARY LOU Vancomycin HCl 1,000 mg/ (Sodium Chloride) 270 mls @ 270 mls/hr IV Q12H [facility] Last Infusion: 09/13/21 09:19 Dose: 0 mls/hr Documented by: MARY LOU Melatonin (Melatonin 3 Mg Tablet) 6 mg PO BEDTIME PRN PRN Reason: Insomnia Methadone HCl (Methadone Hcl 20 Mg/2 Ml Oral.Conc) 25 mg PO ONCE PRN PRN Reason: withdrawal Last Admin: 09/12/21 22:50 Dose: 25 mg Documented by: ANA Methadone HCl (Methadone Hcl 20 Mg/2 Ml Oral.Conc) 25 mg PO ONCE ONE Stop: 09/13/21 14:01 Metoprolol Tartrate (Metoprolol Tartrate 12.5 Mg Halftab) 12.5 mg PO BID [facility]; Protocol Last Admin: 09/13/21 08:19 Dose: 12.5 mg Documented by: MARY LOU Oxycodone HCl (Oxycodone Hcl Immed Release 5 Mg Tablet) 5 mg PO Q6H PRN PRN Reason: Pain, Severe (Pain Scale 7-10) Pharmacy Consult (Consult Rx Perform Med Rec) 1 each MISCELLANE ONCE PRN PRN Reason: Consult order Pharmacy Consult (Consult Rx Vancomycin Dosing) 1 each MISCELLANE DAILY PRN PRN Reason: Consult order Rivaroxaban (Rivaroxaban 20 Mg Tablet) 20 mg PO DAILY [facility] Last Admin: 09/13/21 08:35 Dose: 20 mg Documented by: MARY LOU Senna (Sennosides 8.6 Mg Tablet) 17.2 mg PO BEDTIME PRN PRN Reason: Constipation Sodium Chloride (0.9 % Sodium Chloride Flush 3 Ml Syringe) 3 ml IVFLUSH QSHIFT [facility] Last Admin: 09/13/21 08:19 Dose: 3 ml Documented by: MARY LOU Labs CBC & Chem 7: 09/13/21 06:45 09/13/21 06:45 Labs: Laboratory Results - last 24 hr 09/12/21 09/12/21 09/12/21 19:54 19:54 19:54 MCV 83.1 MCH 26.2 L MCHC 31.5 RDW 15.8 Plt Count 154 L MPV 10.9 Immature Gran % (Auto) 0.6 H Neut % (Auto) 78.8 H Lymph % (Auto) 13.2 L [place] % (Auto) 6.0 Eos % (Auto) 1.1 Baso % (Auto) 0.3 Lymph # (Auto) 2.2 [place] # (Auto) 1.0 Eos # (Auto) 0.2 Baso # (Auto) 0.1 Abs Immat Gran (auto) 0.10 H Absolute Neuts (auto) 12.9 H Absolute Nucleated RBC 0.000 Nucleated RBC % (auto) 0.0 Anion Gap 11 L Estim Creat Clear Calc 99.0 Cancelled Estimated GFR > 60 Cancelled POC Glucose Random Glucose 113 Fasting Glucose Calcium 8.1 L Vancomycin Trough 09/12/21 09/13/21 09/13/21 20:34 06:45 06:45 MCV 82.2 MCH 25.8 L MCHC 31.4 RDW 15.9 Plt Count 180 MPV 10.9 Immature Gran % (Auto) Neut % (Auto) Lymph % (Auto) [place] % (Auto) Eos % (Auto) Baso % (Auto) Lymph # (Auto) [place] # (Auto) Eos # (Auto) Baso # (Auto) Abs Immat Gran (auto) Absolute Neuts (auto) Absolute Nucleated RBC 0.000 Nucleated RBC % (auto) 0.0 Anion Gap 11 L Estim Creat Clear Calc 109.3 Estimated GFR > 60 POC Glucose 108 Random Glucose Fasting Glucose 95 Calcium 8.1 L Vancomycin Trough 09/13/21 09/13/21 06:46 07:09 MCV MCH MCHC RDW Plt Count MPV Immature Gran % (Auto) Neut % (Auto) Lymph % (Auto) [place] % (Auto) Eos % (Auto) Baso % (Auto) Lymph # (Auto) [place] # (Auto) Eos # (Auto) Baso # (Auto) Abs Immat Gran (auto) Absolute Neuts (auto) Absolute Nucleated RBC Nucleated RBC % (auto) Anion Gap Estim Creat Clear Calc Estimated GFR POC Glucose 77 Random Glucose Fasting Glucose Calcium Vancomycin Trough 13.1 Microbiology Microbiology Results: Microbiology 09/11/21 20:20 Blood Culture - Preliminary Blood - Venous Gram positive cocci 09/11/21 20:41 Blood Culture - Preliminary Blood - Venous Gram positive cocci Assessment and Plan (1) Sepsis: Status: Deleted Assessment and Plan: 30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 found to be septic. severe sepsis due to recurrent endocarditis in patient with IVDA continue vanc, zosyn, follow up cultures - gpc 11/20, follow up repeat, ID grew strep sanguinis and mitis in june 2021, before that MSSA was previously referred to [facility] for severe TS and 1.5cm vegetation, however, risks of surgery deemed to outweigh benefits as patient likely to continue using and reinfect any new prosthesis. skilled nursing IV antibiotics had been recommended, however, patient left AMA and did not complete treatement opiate dependence with withdrawal medicare contact specialist following history of pulmonary embolism xarelto HCV outpatient follow up poor prognosis Quality Stroke Does the patient have a stroke diagnosis?: No VTE Prior VTE?: Yes VTE Risk Level:: Medical - moderate - high VTE Device Contraindication: Treatment Not Indicated VTE Drug Contraindication: N/A - Med Ordered
--- NOTE | 2021-09-13 12:35 | P.PNADD_ITS ---
Subjective Subjective Date of Service: 09/13/21 Reason For Visit: chest pain Interim History: Patient currently medically admitted with sepesi related to endocardidits. 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 Seen this morning, patient with eyes closed, asleep lethargic, easily awoke, but unwilling to engage in interview. Did state that he wanted to continue with methadone. Appearing diaphoretic irritable. No documentation of n,v, loose stools Review of Systems Review of Systems Yes Unobtainable due to mental status (patient asleep, unwilling to participate in interview ) Mental Status Exam Mental Status Exam Patient Appearance: Disheveled and Perspiring Level of Consciousness: Drowsy and Lethargic Judgement: Fair Diagnostics Vital Signs (24Hr): Vital Signs - 24 hr 09/12/21 14:59 09/12/21 15:03 09/12/21 18:27 Temperature 98.2 F 98.6 F Pulse Rate 89 97 Respiratory Rate 16 24 H Blood Pressure 108/58 L 117/70 Pulse Oximetry 95 93 09/12/21 19:28 09/12/21 20:52 09/12/21 23:06 Temperature Pulse Rate 99 103 H 91 Respiratory Rate 14 20 Blood Pressure 108/67 128/73 114/70 Pulse Oximetry 99 95 09/13/21 05:54 09/13/21 08:15 Temperature 99.2 F Pulse Rate 76 108 H Respiratory Rate 18 20 Blood Pressure 134/78 139/77 Pulse Oximetry 98 96 Body Mass Index 22.1 Labs Results: 09/13/21 06:45 09/13/21 06:45 Labs: Laboratory Results - last 48 hr 09/11/21 09/11/21 09/11/21 20:13 20:20 20:20 WBC 18.1 H RBC 4.33 L Hgb 11.4 L Hct 35.5 L MCV 82.0 MCH 26.3 L MCHC 32.1 RDW 15.5 Plt Count 173 MPV 10.5 Immature Gran % (Auto) 1.1 H Neut % (Auto) 90.7 H Lymph % (Auto) 4.1 L Price % (Auto) 3.7 Eos % (Auto) 0.2 Baso % (Auto) 0.2 Lymph # (Auto) 0.8 L Price # (Auto) 0.7 Eos # (Auto) 0.0 Baso # (Auto) 0.0 Abs Immat Gran (auto) 0.19 H Absolute Neuts (auto) 16.4 H Absolute Nucleated RBC 0.000 Nucleated RBC % (auto) 0.0 Smear Tech's Comments VERIFIED Sodium 135 Potassium 3.8 Chloride 106 Carbon Dioxide 20 L Anion Gap 13 BUN 16 Creatinine 0.98 Estim Creat Clear Calc 90.2 Estimated GFR > 60 POC Glucose 111 Random Glucose 99 Fasting Glucose Lactic Acid Lactic Acid Fup @ 2Hr Calcium 8.4 D Magnesium 1.5 L Total Bilirubin 1.1 H Direct Bilirubin 0.9 H AST 16 ALT 11 Alkaline Phosphatase 214 H D Total Creatine Kinase 28 L Troponin I High Sens B-Natriuretic Peptide Total Protein 6.8 D Albumin 3.2 L D Lipase 14 Urine Color Urine Appearance Urine pH Ur Specific [place] Urine Protein Urine Glucose (UA) Urine Ketones Urine Blood Urine Nitrite Ur Leukocyte Esterase Urine RBC Urine WBC Ur Squamous Epith Cells Urine Bacteria Vancomycin Trough Urine Opiates Screen Urine Fentanyl Screen Ur Barbiturates Screen Ur Phencyclidine Scrn Ur Amphetamines Screen U Benzodiazepines Scrn Urine Cocaine Screen U Marijuana (THC) Screen Influenza Type A (PCR) Influenza Type B (PCR) RSV RNA Qual (PCR) SARS-CoV-2 RNA (RT-PCR) 09/11/21 09/11/21 09/11/21 20:20 20:20 20:20 WBC RBC Hgb Hct MCV MCH MCHC RDW Plt Count MPV Immature Gran % (Auto) Neut % (Auto) Lymph % (Auto) Price % (Auto) Eos % (Auto) Baso % (Auto) Lymph # (Auto) Price # (Auto) Eos # (Auto) Baso # (Auto) Abs Immat Gran (auto) Absolute Neuts (auto) Absolute Nucleated RBC Nucleated RBC % (auto) Smear Tech's Comments Sodium Potassium Chloride Carbon Dioxide Anion Gap BUN Creatinine Estim Creat Clear Calc Estimated GFR POC Glucose Random Glucose Fasting Glucose Lactic Acid 2.1 H* Lactic Acid Fup @ 2Hr Calcium Magnesium Total Bilirubin Direct Bilirubin AST ALT Alkaline Phosphatase Total Creatine Kinase Troponin I High Sens 29.4 D B-Natriuretic Peptide 208 H Total Protein Albumin Lipase Urine Color Urine Appearance Urine pH Ur Specific [place] Urine Protein Urine Glucose (UA) Urine Ketones Urine Blood Urine Nitrite Ur Leukocyte Esterase Urine RBC Urine WBC Ur Squamous Epith Cells Urine Bacteria Vancomycin Trough Urine Opiates Screen Urine Fentanyl Screen Ur Barbiturates Screen Ur Phencyclidine Scrn Ur Amphetamines Screen U Benzodiazepines Scrn Urine Cocaine Screen U Marijuana (THC) Screen Influenza Type A (PCR) Influenza Type B (PCR) RSV RNA Qual (PCR) SARS-CoV-2 RNA (RT-PCR) 09/11/21 09/11/21 09/12/21 20:26 22:31 01:50 WBC RBC Hgb Hct MCV MCH MCHC RDW Plt Count MPV Immature Gran % (Auto) Neut % (Auto) Lymph % (Auto) Price % (Auto) Eos % (Auto) Baso % (Auto) Lymph # (Auto) Price # (Auto) Eos # (Auto) Baso # (Auto) Abs Immat Gran (auto) Absolute Neuts (auto) Absolute Nucleated RBC Nucleated RBC % (auto) Smear Tech's Comments Sodium Potassium Chloride Carbon Dioxide Anion Gap BUN Creatinine Estim Creat Clear Calc Estimated GFR POC Glucose Random Glucose Fasting Glucose Lactic Acid Lactic Acid Fup @ 2Hr 0.9 Calcium Magnesium Total Bilirubin Direct Bilirubin AST ALT Alkaline Phosphatase Total Creatine Kinase Troponin I High Sens B-Natriuretic Peptide Total Protein Albumin Lipase Urine Color Urine Appearance Urine pH Ur Specific [place] Urine Protein Urine Glucose (UA) Urine Ketones Urine Blood Urine Nitrite Ur Leukocyte Esterase Urine RBC Urine WBC Ur Squamous Epith Cells Urine Bacteria Vancomycin Trough Urine Opiates Screen POSITIVE H Urine Fentanyl Screen POSITIVE H Ur Barbiturates Screen Not Detected Ur Phencyclidine Scrn Not Detected Ur Amphetamines Screen Not Detected U Benzodiazepines Scrn Not Detected Urine Cocaine Screen POSITIVE H U Marijuana (THC) Screen POSITIVE H Influenza Type A (PCR) NEGATIVE Influenza Type B (PCR) NEGATIVE RSV RNA Qual (PCR) NEGATIVE SARS-CoV-2 RNA (RT-PCR) NEGATIVE 09/12/21 09/12/21 09/12/21 01:50 19:54 19:54 WBC 16.3 H RBC 3.97 L Hgb 10.4 L Hct 33.0 L MCV 83.1 MCH 26.2 L MCHC 31.5 RDW 15.8 Plt Count 154 L MPV 10.9 Immature Gran % (Auto) 0.6 H Neut % (Auto) 78.8 H Lymph % (Auto) 13.2 L Price % (Auto) 6.0 Eos % (Auto) 1.1 Baso % (Auto) 0.3 Lymph # (Auto) 2.2 Price # (Auto) 1.0 Eos # (Auto) 0.2 Baso # (Auto) 0.1 Abs Immat Gran (auto) 0.10 H Absolute Neuts (auto) 12.9 H Absolute Nucleated RBC 0.000 Nucleated RBC % (auto) 0.0 Smear Tech's Comments Sodium 138 Potassium 3.5 Chloride 112 H Carbon Dioxide 19 L Anion Gap 11 L BUN 16 Creatinine 1.06 Estim Creat Clear Calc 99.0 Estimated GFR > 60 POC Glucose Random Glucose 113 Fasting Glucose Lactic Acid Lactic Acid Fup @ 2Hr Calcium 8.1 L Magnesium Total Bilirubin Direct Bilirubin AST ALT Alkaline Phosphatase Total Creatine Kinase Troponin I High Sens B-Natriuretic Peptide Total Protein Albumin Lipase Urine Color YELLOW Urine Appearance CLEAR Urine pH 5.5 Ur Specific [place] <= 1.005 Urine Protein 1+ H Urine Glucose (UA) NEG Urine Ketones NEG Urine Blood 3+ H Urine Nitrite NEG Ur Leukocyte Esterase NEG Urine RBC 5-9 H Urine WBC 0-2 Ur Squamous Epith Cells TRACE Urine Bacteria NONE Vancomycin Trough Urine Opiates Screen Urine Fentanyl Screen Ur Barbiturates Screen Ur Phencyclidine Scrn Ur Amphetamines Screen U Benzodiazepines Scrn Urine Cocaine Screen U Marijuana (THC) Screen Influenza Type A (PCR) Influenza Type B (PCR) RSV RNA Qual (PCR) SARS-CoV-2 RNA (RT-PCR) 09/12/21 09/12/21 09/13/21 19:54 20:34 06:45 WBC 15.3 H RBC 4.11 L Hgb 10.6 L Hct 33.8 L MCV 82.2 MCH 25.8 L MCHC 31.4 RDW 15.9 Plt Count 180 MPV 10.9 Immature Gran % (Auto) Neut % (Auto) Lymph % (Auto) Price % (Auto) Eos % (Auto) Baso % (Auto) Lymph # (Auto) Price # (Auto) Eos # (Auto) Baso # (Auto) Abs Immat Gran (auto) Absolute Neuts (auto) Absolute Nucleated RBC 0.000 Nucleated RBC % (auto) 0.0 Smear Tech's Comments Sodium Potassium Chloride Carbon Dioxide Anion Gap BUN Creatinine Cancelled Estim Creat Clear Calc Cancelled Estimated GFR Cancelled POC Glucose 108 Random Glucose Fasting Glucose Lactic Acid Lactic Acid Fup @ 2Hr Calcium Magnesium Total Bilirubin Direct Bilirubin AST ALT Alkaline Phosphatase Total Creatine Kinase Troponin I High Sens B-Natriuretic Peptide Total Protein Albumin Lipase Urine Color Urine Appearance Urine pH Ur Specific [place] Urine Protein Urine Glucose (UA) Urine Ketones Urine Blood Urine Nitrite Ur Leukocyte Esterase Urine RBC Urine WBC Ur Squamous Epith Cells Urine Bacteria Vancomycin Trough Urine Opiates Screen Urine Fentanyl Screen Ur Barbiturates Screen Ur Phencyclidine Scrn Ur Amphetamines Screen U Benzodiazepines Scrn Urine Cocaine Screen U Marijuana (THC) Screen Influenza Type A (PCR) Influenza Type B (PCR) RSV RNA Qual (PCR) SARS-CoV-2 RNA (RT-PCR) 09/13/21 09/13/21 09/13/21 06:45 06:46 07:09 WBC RBC Hgb Hct MCV MCH MCHC RDW Plt Count MPV Immature Gran % (Auto) Neut % (Auto) Lymph % (Auto) Price % (Auto) Eos % (Auto) Baso % (Auto) Lymph # (Auto) Price # (Auto) Eos # (Auto) Baso # (Auto) Abs Immat Gran (auto) Absolute Neuts (auto) Absolute Nucleated RBC Nucleated RBC % (auto) Smear Tech's Comments Sodium 138 Potassium 3.6 Chloride 113 H Carbon Dioxide 18 L Anion Gap 11 L BUN 16 Creatinine 0.96 Estim Creat Clear Calc 109.3 Estimated GFR > 60 POC Glucose 77 Random Glucose Fasting Glucose 95 Lactic Acid Lactic Acid Fup @ 2Hr Calcium 8.1 L Magnesium Total Bilirubin Direct Bilirubin AST ALT Alkaline Phosphatase Total Creatine Kinase Troponin I High Sens B-Natriuretic Peptide Total Protein Albumin Lipase Urine Color Urine Appearance Urine pH Ur Specific [place] Urine Protein Urine Glucose (UA) Urine Ketones Urine Blood Urine Nitrite Ur Leukocyte Esterase Urine RBC Urine WBC Ur Squamous Epith Cells Urine Bacteria Vancomycin Trough 13.1 Urine Opiates Screen Urine Fentanyl Screen Ur Barbiturates Screen Ur Phencyclidine Scrn Ur Amphetamines Screen U Benzodiazepines Scrn Urine Cocaine Screen U Marijuana (THC) Screen Influenza Type A (PCR) Influenza Type B (PCR) RSV RNA Qual (PCR) SARS-CoV-2 RNA (RT-PCR) Imaging Radiology Impressions: ITS Impressions Chest X-Ray 09/11/21 19:57 IMPRESSION: No acute cardiopulmonary findings. Chest CTA 09/11/21 21:23 IMPRESSION: No definite acute pulmonary emboli but there are abnormalities seen in the pulmonary vasculature which could be chronic with contraction of the vessels which fill poorly. Extensive pulmonary masses, some cavitary have resolved with some pulmonary parenchymal abnormalities at this time described above. VTE: Positive, most likely chronic or subacute Medications Medications Current Medications Acetaminophen (Acetaminophen 325 Mg Tablet) 650 mg PO Q6H PRN PRN Reason: Pain, Mild (Pain Scale 1-3) Gabapentin (Gabapentin 300 Mg Capsule) 300 mg PO TID [facility] Last Admin: 09/13/21 08:19 Dose: 300 mg Documented by: Piperacillin Sod/Tazobactam (Sod 3.375 gm/ Sodium Chloride) 50 mls @ 100 mls/hr IV Q6H [facility] Last Infusion: 09/13/21 10:30 Dose: Infused Documented by: Vancomycin HCl 1,000 mg/ (Sodium Chloride) 270 mls @ 270 mls/hr IV Q12H [facility] Last Infusion: 09/13/21 09:19 Dose: Infused Documented by: Melatonin (Melatonin 3 Mg Tablet) 6 mg PO BEDTIME PRN PRN Reason: Insomnia Methadone HCl (Methadone Hcl 20 Mg/2 Ml Oral.Conc) 25 mg PO ONCE PRN PRN Reason: withdrawal Last Admin: 09/12/21 22:50 Dose: 25 mg Documented by: Methadone HCl (Methadone Hcl 20 Mg/2 Ml Oral.Conc) 25 mg PO ONCE ONE Stop: 09/13/21 14:01 Metoprolol Tartrate (Metoprolol Tartrate 12.5 Mg Halftab) 12.5 mg PO BID [facility]; Protocol Last Admin: 09/13/21 08:19 Dose: 12.5 mg Documented by: Oxycodone HCl (Oxycodone Hcl Immed Release 5 Mg Tablet) 5 mg PO Q6H PRN PRN Reason: Pain, Severe (Pain Scale 7-10) Pharmacy Consult (Consult Rx Perform Med Rec) 1 each MISCELLANE ONCE PRN PRN Reason: Consult order Pharmacy Consult (Consult Rx Vancomycin Dosing) 1 each MISCELLANE DAILY PRN PRN Reason: Consult order Rivaroxaban (Rivaroxaban 20 Mg Tablet) 20 mg PO DAILY [facility] Last Admin: 09/13/21 08:35 Dose: 20 mg Documented by: Senna (Sennosides 8.6 Mg Tablet) 17.2 mg PO BEDTIME PRN PRN Reason: Constipation Sodium Chloride (0.9 % Sodium Chloride Flush 3 Ml Syringe) 3 ml IVFLUSH QSHIFT [facility] Last Admin: 09/13/21 08:19 Dose: 3 ml Documented by: Allergies Allergies Allergy/AdvReac Type Severity Reaction Status Date / Time No Known Allergies Allergy Unverified 07/05/20 15:53 [No Known Allergies*] Assessment & Plan Assessment & Plan (1) Opioid use disorder: Status: Acute Code(s): F11.99 - Opioid use, unspecified with unspecified opioid-induced disorder Assessment and Plan: * another dose of methadone 25mg ordered for this afternoon. Will then have it scheduled. Dose titration when patient more alert * if patient complains of withdrawal sx, and more alert, may receive additional 5-10mg this evening I spent __15____ minutes with the patient and/or on the patient floor today, greater than?50% of which was spent counseling/coordinating care.
[2021-09-13 12:45] VITALS: BP 104/60; PULSE 103; RESP 18; TEMP 36.9; O2SAT 95
[2021-09-13 12:54] VITALS: BMI 20.5
[2021-09-13] MEDS: methADONE HCl 20 MG/2 ML ORAL.CONC 25 MG PO (14:38)
[2021-09-13] MEDS: cefTRIAXone sodium 2 GM in 0.9 % Sodium Chloride 50 ML IV (14:38)
[2021-09-13 15:30] VITALS: BP 122/88; PULSE 102; RESP 18; TEMP 36.6; O2SAT 97
[2021-09-13 20:00] VITALS: BP 118/88; PULSE 100; RESP 16; TEMP 36.9; O2SAT 93
--- NOTE | 2021-09-13 22:53 | P.CNID_ITS ---
History of Present Illness Data of Consult Service Date: 09/13/21 Requesting physician: Gaurav Snowden Primary Care Provider: [facility] HPI Reason for consult: recurrent bacteremia,tricuspid endocarditis He presents to hospital with weakness and fatigue for three to four days. He has gram positive cocci in blood and echo tricuspid endocarditis. He is homeless and Hepatitis C positive,not treated He denies HIV He was transferred to [facility] in June when had strep sanguinus,mitis/oralils here 07/06/2021. Dr Ware at [facility] did tricuspid valve replacement 07/13 and patient left to take 6 weeks Daptomycin and Ceftriaxone ( Daptomycin rather than Vancomycin because patient refused Vancomycin blood monitoring He was supposed to finish this combination on 08/19 but left AMA on 07/23 and didnt get any more antibiotics He had palliative care consult and addiction consult at [facility] and still struggles despite being in Methadone clinic Review of Systems Review of Systems: Yes all other systems are reviewed and are negative [facility] Past Medical History Medical History Anasarca Bacteremia Endocarditis HCV (hepatitis C virus) Pulmonary embolism Right heart failure Steatosis, liver Tricuspid valve stenosis Family History Family history: reviewed and not pertinent Surgical History Surgical History History of tricuspid valve replacement with bioprosthetic valve Social History Social History Household Members: Other Household Members Other:: none. homeless Housing: Homeless Do you presently have visiting nurse or other home services: No Unable to assess alcohol history related to: Refusing to respond Alcohol intake: never Patient Tobacco Use Status: Current everyday Tobacco user Tobacco use type: Cigarette Substance Use Type: Crack/Cocaine, Heroin, Marijuana and Opiates service: No Current occupational status: unemployed Meds Allergies Allergy/AdvReac Type Severity Reaction Status Date / Time No Known Allergies Allergy Unverified 07/05/20 15:53 [No Known Allergies*] Active Medications: Current Medications Acetaminophen (Acetaminophen 325 Mg Tablet) 650 mg PO Q6H PRN PRN Reason: Pain, Mild (Pain Scale 1-3) Gabapentin (Gabapentin 300 Mg Capsule) 300 mg PO TID [facility] Last Admin: 09/13/21 20:12 Dose: 300 mg Documented by: Ceftriaxone Sodium 2 gm/ (Sodium Chloride) 50 mls @ 100 mls/hr IV Q24H [facility] Last Infusion: 09/13/21 15:19 Dose: Infused Documented by: Melatonin (Melatonin 3 Mg Tablet) 6 mg PO BEDTIME PRN PRN Reason: Insomnia Methadone HCl (Methadone Hcl 20 Mg/2 Ml Oral.Conc) 10 mg PO ONCE PRN PRN Reason: Opiate Withdrawal Methadone HCl (Methadone Hcl 20 Mg/2 Ml Oral.Conc) 40 mg PO DAILY [facility] Metoprolol Tartrate (Metoprolol Tartrate 12.5 Mg Halftab) 12.5 mg PO BID [facility]; Protocol Last Admin: 09/13/21 20:12 Dose: 12.5 mg Documented by: Oxycodone HCl (Oxycodone Hcl Immed Release 5 Mg Tablet) 5 mg PO Q6H PRN PRN Reason: Pain, Severe (Pain Scale 7-10) Pharmacy Consult (Consult Rx Perform Med Rec) 1 each MISCELLANE ONCE PRN PRN Reason: Consult order Pharmacy Consult (Consult Rx Vancomycin Dosing) 1 each MISCELLANE DAILY PRN PRN Reason: Consult order Rivaroxaban (Rivaroxaban 20 Mg Tablet) 20 mg PO DAILY [facility] Last Admin: 09/13/21 08:35 Dose: 20 mg Documented by: Senna (Sennosides 8.6 Mg Tablet) 17.2 mg PO BEDTIME PRN PRN Reason: Constipation Sodium Chloride (0.9 % Sodium Chloride Flush 3 Ml Syringe) 3 ml IVFLUSH QSHIFT [facility] Last Admin: 09/13/21 17:19 Dose: 3 ml Documented by: Home Medications Medication Instructions Recorded Confirmed Last Taken Type gabapentin 300 mg capsule 1 cap PO TID 09/11/21 09/11/21 Unknown History rivaroxaban 20 mg tablet (Xarelto) 1 tab PO DAILY 09/11/21 09/11/21 Unknown History Physical Exam Vital Signs: Vital Signs: Last Vital Signs Temp 98.5 F 09/13/21 20:00 Pulse 100 09/13/21 20:00 Resp 16 09/13/21 20:00 BP 118/88 09/13/21 20:00 Pulse Ox 93 09/13/21 20:00 Body Mass Index 20.5 Const: General: cooperative Eyes: General: appearance normal, both eyes and all related structures Resp: Effort & Inspection: normal respiratory effort Cardio: Rate: regular rate Rhythm: regular rhythm Heart sounds: Murmur heart sound present systolic III/ Peripheral pulses: Peripheral pulses 2+ throughout GI: Palpation (GI): Soft to palpation and nontender Skin: General skin exam: no rashes or lesions noted Extrem: General: Yes normal to inspection Results Labs CBC & Chem 7: 09/13/21 06:45 09/13/21 06:45 Labs: Short CBC 09/13/21 Range/Units 06:45 WBC 15.3 H (4.8-10.8) X10*3/uL Hgb 10.6 L (14.0-18.0) g/dl Hct 33.8 L (42.0-52.0) % Plt Count 180 (160-400) X10*3/uL BMP 09/13/21 06:45 Sodium 138 Potassium 3.6 Chloride 113 H Carbon Dioxide 18 L BUN 16 Creatinine 0.96 Calcium 8.1 L Microbiology Microbiology Results: Microbiology 09/11/21 20:20 Blood - Venous Blood Culture - Preliminary Gram positive cocci 09/11/21 20:41 Blood - Venous Blood Culture - Preliminary Gram positive cocci Assessment and Plan (1) Severe sepsis: Status: Acute probable strep bacteremia again patient not surgical candidate due to refusal of care he has OUD opioid use disorder (2) Endocarditis: Status: Acute (3) Opioid use disorder: Status: Acute (4) Bacteremia: Status: Acute 6 weeks IV antibiotics await culture would give po Doxycycline for six weeks if goes AMA prognosis very poor
[2021-09-13] MEDS: methADONE HCl 20 MG/2 ML ORAL.CONC 10 MG PO (23:23)
[2021-09-13 23:38] VITALS: BP 113/63; PULSE 97; RESP 18; TEMP 36.9; O2SAT 97
[2021-09-14] VITALS (8 sets, daily range): BP systolic 102–125; BP diastolic 66–82; PULSE 82–99; RESP 17–20; TEMP 36–36.9; O2SAT 93–95
[2021-09-14] MEDS: ondansetron HCL 4 MG/2 ML VIAL IVPUSH (00:08)
[2021-09-14] MEDS: Rivaroxaban 20 MG TABLET PO (08:47)
[2021-09-14] MEDS: Metoprolol Tartrate 12.5 MG HALFTAB PO ×2 (08:47→19:55)
[2021-09-14] MEDS: 0.9 % Sodium Chloride Flush 3 ML SYRINGE IVFLUSH ×3 (08:47→19:56)
[2021-09-14] MEDS: Gabapentin 300 MG CAPSULE PO ×3 (08:47→19:55)
[2021-09-14] MEDS: methADONE HCl 20 MG/2 ML ORAL.CONC 40 MG PO (08:47)
--- NOTE | 2021-09-14 10:09 | P.PNIM_ITS ---
Subjective Subjective Date of Service: 09/14/21 Interval History: cc: ams interval history: no complaints Cardiovascular Cardiovascular: Reports no additional cardiovascular complaints Respiratory Respiratory: Reports no additional respiratory complaints Physical Exam Vital Signs: Vital Signs: Last Vital Signs Temp 97.9 F 09/14/21 08:00 Pulse 88 09/14/21 08:47 Resp 20 09/14/21 08:00 BP 108/70 09/14/21 08:47 Pulse Ox 95 09/14/21 08:00 Body Mass Index 20.5 General: lethargic O X 3, ill appearing Resp:? CTA bilateral, no accessory muscles used CVS: S1,S2,RRR, murmur, no edema GI: soft, non tender, non distended Neuro:? motor grossly intact, alert Psych: indifferent affect, poor insight? Objective Data Active Medications Acetaminophen (Acetaminophen 325 Mg Tablet) 650 mg PO Q6H PRN PRN Reason: Pain, Mild (Pain Scale 1-3) Gabapentin (Gabapentin 300 Mg Capsule) 300 mg PO TID [facility] Last Admin: 09/14/21 08:47 Dose: 300 mg Documented by: LORI Ceftriaxone Sodium 2 gm/ (Sodium Chloride) 50 mls @ 100 mls/hr IV Q24H [facility] Last Infusion: 09/13/21 15:19 Dose: 0 mls/hr Documented by: TRAY Melatonin (Melatonin 3 Mg Tablet) 6 mg PO BEDTIME PRN PRN Reason: Insomnia Methadone HCl (Methadone Hcl 20 Mg/2 Ml Oral.Conc) 10 mg PO ONCE PRN PRN Reason: Opiate Withdrawal Last Admin: 09/13/21 23:23 Dose: 10 mg Documented by: FRANKIE Methadone HCl (Methadone Hcl 20 Mg/2 Ml Oral.Conc) 40 mg PO DAILY [facility] Last Admin: 09/14/21 08:47 Dose: 40 mg Documented by: LORI Metoprolol Tartrate (Metoprolol Tartrate 12.5 Mg Halftab) 12.5 mg PO BID [facility]; P rotocol Last Admin: 09/14/21 08:47 Dose: 12.5 mg Documented by: LORI Oxycodone HCl (Oxycodone Hcl Immed Release 5 Mg Tablet) 5 mg PO Q6H PRN PRN Reason: Pain, Severe (Pain Scale 7-10) Pharmacy Consult (Consult Rx Perform Med Rec) 1 each MISCELLANE ONCE PRN PRN Reason: Consult order Pharmacy Consult (Consult Rx Vancomycin Dosing) 1 each MISCELLANE DAILY PRN PRN Reason: Consult order Rivaroxaban (Rivaroxaban 20 Mg Tablet) 20 mg PO DAILY [facility] Last Admin: 09/14/21 08:47 Dose: 20 mg Documented by: LORI Senna (Sennosides 8.6 Mg Tablet) 17.2 mg PO BEDTIME PRN PRN Reason: Constipation Sodium Chloride (0.9 % Sodium Chloride Flush 3 Ml Syringe) 3 ml IVFLUSH QSHIFT [facility] Last Admin: 09/14/21 08:47 Dose: 3 ml Documented by: LORI Labs CBC & Chem 7: 09/13/21 06:45 09/13/21 06:45 Labs: Laboratory Results - last 24 hr 09/11/21 20:13 POC Glucose 111 Microbiology Microbiology Results: Microbiology 09/11/21 20:41 Blood Culture - Final Blood - Venous Streptococcus mitis/oralis 09/11/21 20:20 Blood Culture - Final Blood - Venous Streptococcus mitis/oralis 09/13/21 06:45 Blood Culture - Preliminary Blood - Venous Prelim: GPC Gram Stain only 09/13/21 06:45 Blood Culture - Preliminary Blood - Venous Prelim: GPC Gram Stain only Assessment and Plan (1) Sepsis: Status: Deleted Assessment and Plan: 30M pmh IVDA with recurrent tricuspid bioprosthetic valve endocarditis uncompl eted treatment, and severe tricupsid stenosis, HCV, infectious and thrombotic pulmonary embolism, found on the street with myaglias, fevers. found to be septic. severe sepsis due to recurrent endocarditis in patient with IVDA blood cultures growing strep mitis/oralis 09/13 still positive follow up repeat changed to ceftriaxone 2gm q24h was previously referred to [facility] for severe TS and 1.5cm vegetation, however, risks of surgery deemed to outweigh benefits as patient likely to continue using and reinfect any new prosthesis. halfway IV antibiotics had been recommended, however, patient left AMA and did not complete treatement opiate dependence with withdrawal continue methadone network specialist following history of pulmonary embolism xarelto HCV outpatient follow up poor prognosis Quality Stroke Does the patient have a stroke diagnosis?: No VTE Prior VTE?: Yes VTE Risk Level:: Medical - moderate - high VTE Device Contraindication: Treatment Not Indicated VTE Drug Contraindication: N/A - Med Ordered
--- NOTE | 2021-09-14 10:56 | MHC.RECOVSUP ---
Recovery Support note: Patient is a 30 year old Korean speaking male who [place] [facility] [place] due to chest pain and the inability to walk. This service writer met with patient to discuss withdrawal symptoms. Patient reports that the methadone has been helpful however states that he is beginning to experience withdrawal symptoms. Patient reports has chills at this time. Patient denies additional withdrawal symptoms and reports he does not need anything at this time. Discussed case with Tami Luna NP.
[2021-09-14 12:07] LABS: Hematocrit 37.4 % (42.0-52.0); Hemoglobin 11.4 g/dl (14.0-18.0); Mean Corpuscular HGB Conc 30.5 g/dl (31.0-36.0); Mean Corpuscular Hemoglobin 25.6 pg (27.0-33.0); Mean Platelet Volume 10.5 fL (9.4-12.4); Platelet Count 198 X10*3/uL (160-400); Red Blood Count 4.45 X10*6/uL (4.60-5.80); Red Cell Distribution Width 15.9 % (11.0-16.0); White Blood Count 11.3 X10*3/uL (4.8-10.8)
[2021-09-14 12:21] LABS: Anion Gap 10 (12-20); Blood Urea Nitrogen 14 mg/dL (9-16); Carbon Dioxide 20 mmol/L (22-29); Chloride 113 mmol/L (96-108); Creatinine Clr Calc Pharmacy 123.4; Estimated Glomerular Filt Rate > 60; Glucose Fasting 105 mg/dL (60-99); Potassium 4.1 mmol/L (3.3-5.1); Sodium 139 mmol/L (135-145)
[2021-09-14] MEDS: cefTRIAXone sodium 2 GM in 0.9 % Sodium Chloride 50 ML IV (12:55)
--- NOTE | 2021-09-14 15:28 | P.PNADD_ITS ---
Subjective Subjective Date of Service: 09/14/21 Reason For Visit: chest pain Interim History: Patient tolerating methadone 40mg dose today. Still experiencing some chills and restlessness. Appetite improved. Would like to further increase dose. Review of Systems Constitutional: Reports as per HPI Mental Status Exam Mental Status Exam Patient Appearance: Appropriate and Unkempt Patient Orientation: Person, Place, Time and Situation Level of Consciousness: Awake, Appropriate and Alert Patient Behavior: Appropriate and Passive Mood Description: Constricted Affect Description: Constricted Speech Pattern: Clear Thought Process: Intact Thought Content: positive for Intact Judgement: Fair Diagnostics Vital Signs (24Hr): Vital Signs - 24 hr 09/13/21 15:30 09/13/21 20:00 09/13/21 23:38 Temperature 98 F 98.5 F 98.4 F Pulse Rate 102 H 100 97 Respiratory Rate 18 16 18 Blood Pressure 122/88 118/88 113/63 Pulse Oximetry 97 93 97 09/14/21 03:45 09/14/21 08:00 09/14/21 08:47 Temperature 98.3 F 97.9 F Pulse Rate 95 88 88 Respiratory Rate 18 20 Blood Pressure 125/82 108/70 108/70 Pulse Oximetry 93 95 09/14/21 14:04 09/14/21 15:09 Temperature 96.8 F 98.3 F Pulse Rate 82 83 Respiratory Rate 18 17 Blood Pressure 105/67 102/66 Pulse Oximetry 95 95 Body Mass Index 20.5 Labs Results: 09/14/21 11:48 09/14/21 11:48 Labs: Laboratory Results - last 48 hr 09/11/21 09/12/21 09/12/21 20:13 19:54 19:54 WBC 16.3 H RBC 3.97 L Hgb 10.4 L Hct 33.0 L MCV 83.1 MCH 26.2 L MCHC 31.5 RDW 15.8 Plt Count 154 L MPV 10.9 Immature Gran % (Auto) 0.6 H Neut % (Auto) 78.8 H Lymph % (Auto) 13.2 L Deuel % (Auto) 6.0 Eos % (Auto) 1.1 Baso % (Auto) 0.3 Lymph # (Auto) 2.2 Deuel # (Auto) 1.0 Eos # (Auto) 0.2 Baso # (Auto) 0.1 Abs Immat Gran (auto) 0.10 H Absolute Neuts (auto) 12.9 H Absolute Nucleated RBC 0.000 Nucleated RBC % (auto) 0.0 Sodium 138 Potassium 3.5 Chloride 112 H Carbon Dioxide 19 L Anion Gap 11 L BUN 16 Creatinine 1.06 Estim Creat Clear Calc 99.0 Estimated GFR > 60 POC Glucose 111 Random Glucose 113 Fasting Glucose Calcium 8.1 L Vancomycin Trough 09/12/21 09/12/21 09/13/21 19:54 20:34 06:45 WBC 15.3 H RBC 4.11 L Hgb 10.6 L Hct 33.8 L MCV 82.2 MCH 25.8 L MCHC 31.4 RDW 15.9 Plt Count 180 MPV 10.9 Immature Gran % (Auto) Neut % (Auto) Lymph % (Auto) Deuel % (Auto) Eos % (Auto) Baso % (Auto) Lymph # (Auto) Deuel # (Auto) Eos # (Auto) Baso # (Auto) Abs Immat Gran (auto) Absolute Neuts (auto) Absolute Nucleated RBC 0.000 Nucleated RBC % (auto) 0.0 Sodium Potassium Chloride Carbon Dioxide Anion Gap BUN Creatinine Cancelled Estim Creat Clear Calc Cancelled Estimated GFR Cancelled POC Glucose 108 Random Glucose Fasting Glucose Calcium Vancomycin Trough 09/13/21 09/13/21 09/13/21 06:45 06:46 07:09 WBC RBC Hgb Hct MCV MCH MCHC RDW Plt Count MPV Immature Gran % (Auto) Neut % (Auto) Lymph % (Auto) Deuel % (Auto) Eos % (Auto) Baso % (Auto) Lymph # (Auto) Deuel # (Auto) Eos # (Auto) Baso # (Auto) Abs Immat Gran (auto) Absolute Neuts (auto) Absolute Nucleated RBC Nucleated RBC % (auto) Sodium 138 Potassium 3.6 Chloride 113 H Carbon Dioxide 18 L Anion Gap 11 L BUN 16 Creatinine 0.96 Estim Creat Clear Calc 109.3 Estimated GFR > 60 POC Glucose 77 Random Glucose Fasting Glucose 95 Calcium 8.1 L Vancomycin Trough 13.1 09/14/21 09/14/21 11:48 11:48 WBC 11.3 H RBC 4.45 L Hgb 11.4 L Hct 37.4 L MCV 84.0 MCH 25.6 L MCHC 30.5 L RDW 15.9 Plt Count 198 MPV 10.5 Immature Gran % (Auto) Neut % (Auto) Lymph % (Auto) Deuel % (Auto) Eos % (Auto) Baso % (Auto) Lymph # (Auto) Deuel # (Auto) Eos # (Auto) Baso # (Auto) Abs Immat Gran (auto) Absolute Neuts (auto) Absolute Nucleated RBC 0.000 Nucleated RBC % (auto) 0.0 Sodium 139 Potassium 4.1 Chloride 113 H Carbon Dioxide 20 L Anion Gap 10 L BUN 14 Creatinine 0.79 Estim Creat Clear Calc 123.4 Estimated GFR > 60 POC Glucose Random Glucose Fasting Glucose 105 H Calcium 8.0 L Vancomycin Trough Imaging Radiology Impressions: ITS Impressions Chest X-Ray 09/11/21 19:57 IMPRESSION: No acute cardiopulmonary findings. Chest CTA 09/11/21 21:23 IMPRESSION: No definite acute pulmonary emboli but there are abnormalities seen in the pulmonary vasculature which could be chronic with contraction of the vessels which fill poorly. Extensive pulmonary masses, some cavitary have resolved with some pulmonary parenchymal abnormalities at this time described above. VTE: Positive, most likely chronic or subacute Medications Medications Current Medications Acetaminophen (Acetaminophen 325 Mg Tablet) 650 mg PO Q6H PRN PRN Reason: Pain, Mild (Pain Scale 1-3) Gabapentin (Gabapentin 300 Mg Capsule) 300 mg PO TID [facility] Last Admin: 09/14/21 08:47 Dose: 300 mg Documented by: Ceftriaxone Sodium 2 gm/ (Sodium Chloride) 50 mls @ 100 mls/hr IV Q24H [facility] Last Infusion: 09/14/21 13:49 Dose: Infused Documented by: Melatonin (Melatonin 3 Mg Tablet) 6 mg PO BEDTIME PRN PRN Reason: Insomnia Methadone HCl (Methadone Hcl 20 Mg/2 Ml Oral.Conc) 10 mg PO ONCE PRN PRN Reason: Opiate Withdrawal Last Admin: 09/13/21 23:23 Dose: 10 mg Documented by: Methadone HCl (Methadone Hcl 20 Mg/2 Ml Oral.Conc) 50 mg PO DAILY [facility] Metoprolol Tartrate (Metoprolol Tartrate 12.5 Mg Halftab) 12.5 mg PO BID [facility]; Protocol Last Admin: 09/14/21 08:47 Dose: 12.5 mg Documented by: Oxycodone HCl (Oxycodone Hcl Immed Release 5 Mg Tablet) 5 mg PO Q6H PRN PRN Reason: Pain, Severe (Pain Scale 7-10) Pharmacy Consult (Consult Rx Perform Med Rec) 1 each MISCELLANE ONCE PRN PRN Reason: Consult order Pharmacy Consult (Consult Rx Vancomycin Dosing) 1 each MISCELLANE DAILY PRN PRN Reason: Consult order Rivaroxaban (Rivaroxaban 20 Mg Tablet) 20 mg PO DAILY [facility] Last Admin: 09/14/21 08:47 Dose: 20 mg Documented by: Senna (Sennosides 8.6 Mg Tablet) 17.2 mg PO BEDTIME PRN PRN Reason: Constipation Sodium Chloride (0.9 % Sodium Chloride Flush 3 Ml Syringe) 3 ml IVFLUSH QSHIFT [facility] Last Admin: 09/14/21 08:47 Dose: 3 ml Documented by: Allergies Allergies Allergy/AdvReac Type Severity Reaction Status Date / Time No Known Allergies Allergy Unverified 07/05/20 15:53 [No Known Allergies*] Assessment & Plan Assessment & Plan (1) Opioid use disorder: Status: Acute Code(s): F11.99 - Opioid use, unspecified with unspecified opioid-induced disorder Assessment and Plan: * increase methadone to 50mg QD starting 09/15 * continue to follow I spent __15____ minutes with the patient and/or on the patient floor today, greater than?50% of which was spent counseling/coordinating care.
[2021-09-14] MEDS: oxyCODONE HCl Immed Release 5 MG TABLET PO (19:55)
[2021-09-15] VITALS (9 sets, daily range): BP systolic 107–140; BP diastolic 61–82; PULSE 70–95; RESP 18–20; TEMP 35.9–36.9; O2SAT 94–100
[2021-09-15 07:01] LABS: Hematocrit 34.4 % (42.0-52.0); Hemoglobin 10.8 g/dl (14.0-18.0); Mean Corpuscular HGB Conc 31.4 g/dl (31.0-36.0); Mean Corpuscular Hemoglobin 26.3 pg (27.0-33.0); Mean Corpuscular Volume 83.9 fL (80.0-98.0); Mean Platelet Volume 10.6 fL (9.4-12.4); Platelet Count 219 X10*3/uL (160-400); Red Cell Distribution Width 15.9 % (11.0-16.0); White Blood Count 11.6 X10*3/uL (4.8-10.8)
[2021-09-15 07:30] LABS: Anion Gap 14 (12-20); Blood Urea Nitrogen 13 mg/dL (9-16); Calcium 8.3 mg/dL (8.4-10.2); Carbon Dioxide 18 mmol/L (22-29); Chloride 111 mmol/L (96-108); Estimated Glomerular Filt Rate > 60; Glucose Fasting 80 mg/dL (60-99); Potassium 4.8 mmol/L (3.3-5.1); Sodium 138 mmol/L (135-145)
[2021-09-15] MEDS: methADONE HCl 20 MG/2 ML ORAL.CONC 50 MG PO (08:49)
[2021-09-15] MEDS: Rivaroxaban 20 MG TABLET PO (08:49)
[2021-09-15] MEDS: Metoprolol Tartrate 12.5 MG HALFTAB PO ×2 (08:49→20:42)
[2021-09-15] MEDS: 0.9 % Sodium Chloride Flush 3 ML SYRINGE IVFLUSH ×3 (08:49→20:42)
[2021-09-15] MEDS: Gabapentin 300 MG CAPSULE PO ×3 (08:50→20:42)
--- NOTE | 2021-09-15 09:21 | P.PNIM_ITS ---
Subjective Subjective Date of Service: 09/15/21 Interval History: cc: ams interval history: no complaints Cardiovascular Cardiovascular: Reports no additional cardiovascular complaints Respiratory Respiratory: Reports no additional respiratory complaints Physical Exam Vital Signs: Vital Signs: Last Vital Signs Temp 98.5 F 09/15/21 08:00 Pulse 82 09/15/21 08:49 Resp 18 09/15/21 08:00 BP 115/61 09/15/21 08:49 Pulse Ox 100 09/15/21 08:00 Body Mass Index 20.5 General: lethargic O X 3, ill appearing Resp:? CTA bilateral, no accessory muscles used CVS: S1,S2,RRR, murmur, no edema GI: soft, non tender, non distended Neuro:? motor grossly intact, alert Psych: indifferent affect, poor insight? Objective Data Active Medications Acetaminophen (Acetaminophen 325 Mg Tablet) 650 mg PO Q6H PRN PRN Reason: Pain, Mild (Pain Scale 1-3) Gabapentin (Gabapentin 300 Mg Capsule) 300 mg PO TID [facility] Last Admin: 09/15/21 08:50 Dose: 300 mg Documented by: LORI Ceftriaxone Sodium 2 gm/ (Sodium Chloride) 50 mls @ 100 mls/hr IV Q24H [facility] Last Infusion: 09/14/21 13:49 Dose: 0 mls/hr Documented by: LORI Melatonin (Melatonin 3 Mg Tablet) 6 mg PO BEDTIME PRN PRN Reason: Insomnia Methadone HCl (Methadone Hcl 20 Mg/2 Ml Oral.Conc) 50 mg PO DAILY [facility] Last Admin: 09/15/21 08:49 Dose: 50 mg Documented by: LORI Comments: Metoprolol Tartrate (Metoprolol Tartrate 12.5 Mg Halftab) 12.5 mg PO BID [facility]; Protocol Last Admin: 09/15/21 08:49 Dose: 12.5 mg Documented by: LORI Oxycodone HCl (Oxycodone Hcl Immed Release 5 Mg Tablet) 5 mg PO Q6H PRN PRN Reason: Pain, Severe (Pain Scale 7-10) Last Admin: 09/14/21 19:55 Dose: 5 mg Documented by: CASSIE Pharmacy Consult (Consult Rx Perform Med Rec) 1 each MISCELLANE ONCE PRN PRN Reason: Consult order Pharmacy Consult (Consult Rx Vancomycin Dosing) 1 each MISCELLANE DAILY PRN PRN Reason: Consult order Rivaroxaban (Rivaroxaban 20 Mg Tablet) 20 mg PO DAILY [facility] Last Admin: 09/15/21 08:49 Dose: 20 mg Documented by: LORI Senna (Sennosides 8.6 Mg Tablet) 17.2 mg PO BEDTIME PRN PRN Reason: Constipation Sodium Chloride (0.9 % Sodium Chloride Flush 3 Ml Syringe) 3 ml IVFLUSH QSHIFT [facility] Last Admin: 09/15/21 08:49 Dose: 3 ml Documented by: LORI Labs CBC & Chem 7: 09/15/21 06:26 09/15/21 06:26 Labs: Laboratory Results - last 24 hr 09/14/21 09/14/21 09/15/21 11:48 11:48 06:26 MCV 84.0 83.9 MCH 25.6 L 26.3 L MCHC 30.5 L 31.4 RDW 15.9 15.9 Plt Count 198 219 MPV 10.5 10.6 Absolute Nucleated RBC 0.000 0.000 Nucleated RBC % (auto) 0.0 0.0 Anion Gap 10 L Estim Creat Clear Calc 123.4 Estimated GFR > 60 Fasting Glucose 105 H Calcium 8.0 L 09/15/21 06:26 MCV MCH MCHC RDW Plt Count MPV Absolute Nucleated RBC Nucleated RBC % (auto) Anion Gap 14 Estim Creat Clear Calc 125.0 Estimated GFR > 60 Fasting Glucose 80 Calcium 8.3 L Microbiology Microbiology Results: Microbiology 09/13/21 06:45 Blood Culture - Preliminary Blood - Venous Gram positive cocci 09/13/21 06:45 Blood Culture - Preliminary Blood - Venous Gram positive cocci 09/11/21 20:41 Blood Culture - Final Blood - Venous Streptococcus mitis/oralis 09/11/21 20:20 Blood Culture - Final Blood - Venous Streptococcus mitis/oralis Assessment and Plan (1) Sepsis: Status: Deleted Assessment and Plan: 30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 found to be septic. severe sepsis due to recurrent endocarditis in patient with IVDA blood cultures growing strep mitis/oralis 09/13 still positive, awaiting repeat from 09/15 changed to ceftriaxone 2gm q24h was previously referred to [facility] for severe TS and 1.5cm vegetation, however, risks of surgery deemed to outweigh benefits as patient likely to continue using and reinfect any new prosthesis. 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
--- NOTE | 2021-09-15 10:48 | MHC.RECOVSUP ---
Recovery Support note: This blog writer followed up with patient to discuss withdrawal and recovery supports. Patent reports improvement in his withdrawal symptoms. States he has chills now and then however not as often as yesterday. Discussed the importance of continuing with treatment. Patient reports he is willing to go to a nursing facility for antibiotics, stating I have no choice , acknowledging the danger of not receiving treatment. Patient states I'll stay this time. This blog writer discussed recovery supports and meeting with a [employer]. Patient initially declined stating his main problem is housing. This blog writer explained that a [employer] would be able to work on securing placement for him in a substance use treatment program while he gets IV antibiotics so that he has somewhere to go after treatment. Patient is willing to meet with a volleyball coach to discuss this and this blog writer will facilitate the introduction. Discussed case with Tami Luna NP.
[2021-09-15] MEDS: cefTRIAXone sodium 2 GM in 0.9 % Sodium Chloride 50 ML IV (13:23)
[2021-09-15] MEDS: oxyCODONE HCl Immed Release 5 MG TABLET PO ×2 (17:18→23:16)
--- NOTE | 2021-09-15 19:19 | MHC.RECOVSUP ---
? Reason for consult Recovery Support. o Current location: [facility] o Identified substance use concern: Heroin - Support ? Intervention: <del>o</del> <del>ATS</del> <del>bed</del> <del>search</del> <del>started/completed/in</del> <del>process</del> <del>o</del> <del>MAT</del> <del>started</del> <del>or</del> <del>to</del> <del>be</del> <del>started</del> o Community resources provided o Harm reduction discussion ? Plan: <del>o</del> <del>Referral</del> <del>to</del> <del>[facility]</del> <del>o</del> <del>Bed</del> <del>search</del> <del>in</del> <del>progress</del> <del>to</del> <del>o</del> <del>Follow</del> <del>up</del> <del>tomorrow</del> <del>o</del> <del>Patient</del> <del>awaiting</del> <del>crisis</del> <del>evaluation</del> o Patient to follow up with [facility] after discharge ? Additional information: Met with Patient.. We talk about recovery and Harm reduction.. Patient stated that He wants to go to a really long program away from this area..
[2021-09-16] VITALS (7 sets, daily range): BP systolic 104–115; BP diastolic 62–73; PULSE 86–100; RESP 16–22; TEMP 36.1–37.1; O2SAT 96–98
--- NOTE | 2021-09-16 01:51 | PC.NURSE ---
pt c/o feeling like he is still in withdrawal. pt visibly diaphoretic, slight anxiety, yawing a few times during speaking to me. MD notified. Instructed to give additional dose of oxycodone at this time.
[2021-09-16] MEDS: oxyCODONE HCl Immed Release 5 MG TABLET PO ×3 (01:56→21:37)
[2021-09-16] MEDS: Metoprolol Tartrate 12.5 MG HALFTAB PO ×2 (07:49→21:37)
[2021-09-16] MEDS: Rivaroxaban 20 MG TABLET PO (07:50)
[2021-09-16] MEDS: Gabapentin 300 MG CAPSULE PO ×3 (07:50→21:37)
[2021-09-16] MEDS: methADONE HCl 20 MG/2 ML ORAL.CONC 50 MG PO (07:51)
[2021-09-16] MEDS: 0.9 % Sodium Chloride Flush 3 ML SYRINGE IVFLUSH ×3 (07:54→21:37)
--- NOTE | 2021-09-16 09:51 | MHC.CM.PN ---
Addendum entered by Vivian Johnson 09/16/21 11:33: Per MD rounds, Pt will discharge once blood cultures are clear. MD anticipates DC 1-3 days. Both facilities have been updated on discharge date. I have asked [facility] and [facility] for confirmation of a bed for this week. Original Note: Male 30 DX Chest pain. No dc today. Per ID Patient will need 6 weeks of IV ABX. 2 referrals have been sent for STR. [facility] and [facility] are the only 2 facilities that may accept him. IVDA and Methadone program are both barriers for other facilities. He will transport via BLS.
--- NOTE | 2021-09-16 11:15 | HO.PM.IMPN ---
Subjective Subjective Date of Service: 09/16/21 Interval History: cc: ams interval history: no new complaints Respiratory Respiratory: Reports no additional respiratory complaints Gastrointestinal Gastrointestinal: Reports no additional gastrointestinal complaints Physical Exam Vital Signs: Vital Signs: Last Vital Signs Temp 97.0 F 09/16/21 07:40 Pulse 86 09/16/21 07:49 Resp 22 H 09/16/21 07:40 BP 111/73 09/16/21 07:49 Pulse Ox 96 09/16/21 07:40 Body Mass Index 20.5 General: lethargic O X 3, ill appearing Resp:? CTA bilateral, no accessory muscles used CVS: S1,S2,RRR, murmur, no edema GI: soft, non tender, non distended Neuro:? motor grossly intact, alert Psych: indifferent affect, poor insight? Objective Data Active Medications Acetaminophen (Acetaminophen 325 Mg Tablet) 650 mg PO Q6H PRN PRN Reason: Pain, Mild (Pain Scale 1-3) Gabapentin (Gabapentin 300 Mg Capsule) 300 mg PO TID [facility] Last Admin: 09/16/21 07:50 Dose: 300 mg Documented by: HARRY Ceftriaxone Sodium 2 gm/ (Sodium Chloride) 50 mls @ 100 mls/hr IV Q24H [facility] Last Infusion: 09/15/21 14:16 Dose: 0 mls/hr Documented by: LORI Melatonin (Melatonin 3 Mg Tablet) 6 mg PO BEDTIME PRN PRN Reason: Insomnia Methadone HCl (Methadone Hcl 20 Mg/2 Ml Oral.Conc) 50 mg PO DAILY [facility] Last Admin: 09/16/21 07:51 Dose: 50 mg Documented by: HARRY Metoprolol Tartrate (Metoprolol Tartrate 12.5 Mg Halftab) 12.5 mg PO BID [facility]; Protocol Last Admin: 09/16/21 07:49 Dose: 12.5 mg Documented by: HARRY Oxycodone HCl (Oxycodone Hcl Immed Release 5 Mg Tablet) 5 mg PO Q6H PRN PRN Reason: Pain, Severe (Pain Scale 7-10) Last Admin: 09/16/21 01:56 Dose: 5 mg Documented by: JANELLE Pharmacy Consult (Consult Rx Perform Med Rec) 1 each MISCELLANE ONCE PRN PRN Reason: Consult order Pharmacy Consult (Consult Rx Vancomycin Dosing) 1 each MISCELLANE DAILY PRN PRN Reason: Consult order Rivaroxaban (Rivaroxaban 20 Mg Tablet) 20 mg PO DAILY [facility] Last Admin: 09/16/21 07:50 Dose: 20 mg Documented by: HARRY Senna (Sennosides 8.6 Mg Tablet) 17.2 mg PO BEDTIME PRN PRN Reason: Constipation Sodium Chloride (0.9 % Sodium Chloride Flush 3 Ml Syringe) 3 ml IVFLUSH QSHIFT [facility] Last Admin: 09/16/21 07:54 Dose: 3 ml Documented by: HARRY Labs CBC & Chem 7: 09/15/21 06:26 09/15/21 06:26 Microbiology Microbiology Results: Microbiology 09/15/21 06:26 Blood Culture - Preliminary Blood - Venous No growth after 24 hours. 09/15/21 06:19 Blood Culture - Preliminary Blood - Venous No growth after 24 hours. 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 found to be septic. severe sepsis due to recurrent endocarditis in patient with IVDA blood cultures growing strep mitis/oralis 09/13 still positive, awaiting repeat from 09/15 ceftriaxone 2gm q24h (will need 6 weeks) was previously referred to [facility] for severe TS and 1.5cm vegetation, however, risks of surgery deemed to outweigh benefits as patient likely to continue using and reinfect any new prosthesis. 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
--- NOTE | 2021-09-16 12:04 | MHC.RECOVRN ---
Met with pt to f/u regarding methadone titration. Upon entering, pt sitting in bed, lights off, watching TV. Pt alert and oriented, flat affect. Pt reports hot/cold flashes overnight and desire to increase methadone dose. Pt reports hx of 55 mg, however, feels a dose around 90 mg would be most beneficial due to amount used (2 bundles daily). Pt reports chest pain when taking a deep breath, reports oxycodone 5 mg is not helpful and would like an alternative. Pt looking forward to mother visiting today and bringing snacks. Pt voices motivation to continue and complete treatment. Discussed with Tami Luna APRN. Will continue to follow.
[2021-09-16] MEDS: cefTRIAXone sodium 2 GM in 0.9 % Sodium Chloride 50 ML IV (13:26)
--- NOTE | 2021-09-16 17:09 | P.PNADD_ITS ---
Subjective Subjective Date of Service: 09/16/21 Reason For Visit: chest pain Interim History: Patient reports that he is still experiencing some withdrawal symptoms, usually later in the day. He is currently at 50 mg of methadone He reports difficulty sleeping. Reporting occasional chills. Experiencing some discomfort when he breathes. Eating well, denies nausea and vomiting. Review of Systems Constitutional: Reports as per HPI Mental Status Exam Mental Status Exam Patient Appearance: Well Grooomed and Appropriate Patient Orientation: Person, Place, Time and Situation Level of Consciousness: Awake, Appropriate and Alert Patient Behavior: Appropriate Mood Description: Blunted Affect Description: Blunted Thought Process: Intact and Goal Oriented Thought Content: positive for Goal Oriented Judgement: Fair Diagnostics Vital Signs (24Hr): Vital Signs - 24 hr 09/15/21 19:11 09/15/21 20:42 09/15/21 23:10 Temperature 98.2 F 98.2 F Pulse Rate 95 86 88 Respiratory Rate 20 20 Blood Pressure 114/71 114/62 115/75 Pulse Oximetry 95 96 09/16/21 07:40 09/16/21 07:49 09/16/21 12:00 Temperature 97.0 F Pulse Rate 86 86 91 Respiratory Rate 22 H 20 Blood Pressure 111/73 111/73 107/63 Pulse Oximetry 96 98 09/16/21 15:30 Temperature 98.7 F Pulse Rate 94 Respiratory Rate 16 Blood Pressure 104/62 Pulse Oximetry 96 Body Mass Index 20.5 Labs Results: 09/15/21 06:26 09/15/21 06:26 Labs: Laboratory Results - last 48 hr 09/15/21 09/15/21 06:26 06:26 WBC 11.6 H RBC 4.10 L Hgb 10.8 L Hct 34.4 L MCV 83.9 MCH 26.3 L MCHC 31.4 RDW 15.9 Plt Count 219 MPV 10.6 Absolute Nucleated RBC 0.000 Nucleated RBC % (auto) 0.0 Sodium 138 Potassium 4.8 Chloride 111 H Carbon Dioxide 18 L Anion Gap 14 BUN 13 Creatinine 0.78 Estim Creat Clear Calc 125.0 Estimated GFR > 60 Fasting Glucose 80 Calcium 8.3 L Imaging Radiology Impressions: ITS Impressions Chest X-Ray 09/11/21 19:57 IMPRESSION: No acute cardiopulmonary findings. Chest CTA 09/11/21 21:23 IMPRESSION: No definite acute pulmonary emboli but there are abnormalities seen in the pulmonary vasculature which could be chronic with contraction of the vessels which fill poorly. Extensive pulmonary masses, some cavitary have resolved with some pulmonary parenchymal abnormalities at this time described above. VTE: Positive, most likely chronic or subacute Medications Medications Current Medications Acetaminophen (Acetaminophen 325 Mg Tablet) 650 mg PO Q6H PRN PRN Reason: Pain, Mild (Pain Scale 1-3) Gabapentin (Gabapentin 300 Mg Capsule) 300 mg PO TID [facility] Last Admin: 09/16/21 15:26 Dose: 300 mg Documented by: Ceftriaxone Sodium 2 gm/ (Sodium Chloride) 50 mls @ 100 mls/hr IV Q24H [facility] Last Infusion: 09/16/21 14:00 Dose: Infused Documented by: Melatonin (Melatonin 3 Mg Tablet) 6 mg PO BEDTIME PRN PRN Reason: Insomnia Methadone HCl (Methadone Hcl 20 Mg/2 Ml Oral.Conc) 55 mg PO DAILY [facility] Metoprolol Tartrate (Metoprolol Tartrate 12.5 Mg Halftab) 12.5 mg PO BID [facility]; Protocol Last Admin: 09/16/21 07:49 Dose: 12.5 mg Documented by: Oxycodone HCl (Oxycodone Hcl Immed Release 5 Mg Tablet) 5 mg PO Q6H PRN PRN Reason: Pain, Severe (Pain Scale 7-10) Last Admin: 09/16/21 15:26 Dose: 5 mg Documented by: Pharmacy Consult (Consult Rx Perform Med Rec) 1 each MISCELLANE ONCE PRN PRN Reason: Consult order Pharmacy Consult (Consult Rx Vancomycin Dosing) 1 each MISCELLANE DAILY PRN PRN Reason: Consult order Rivaroxaban (Rivaroxaban 20 Mg Tablet) 20 mg PO DAILY [facility] Last Admin: 09/16/21 07:50 Dose: 20 mg Documented by: Senna (Sennosides 8.6 Mg Tablet) 17.2 mg PO BEDTIME PRN PRN Reason: Constipation Sodium Chloride (0.9 % Sodium Chloride Flush 3 Ml Syringe) 3 ml IVFLUSH QSHIFT [facility] Last Admin: 09/16/21 15:26 Dose: 3 ml Documented by: Trazodone HCl (Trazodone Hcl 50 Mg Tablet) 50 mg PO BEDTIME [facility] Allergies Allergies Allergy/AdvReac Type Severity Reaction Status Date / Time No Known Allergies Allergy Unverified 07/05/20 15:53 [No Known Allergies*] Assessment & Plan Assessment & Plan (1) Opioid use disorder: Status: Acute Code(s): F11.99 - Opioid use, unspecified with unspecified opioid-induced disorder Assessment and Plan: * Methadone increase to 55 mg starting tomorrow morning * Trazodone 50 mg at bedtime to assist with sleep * Will continue to follow. Case discussed with attending provider I spent __20____ minutes with the patient and/or on the patient floor today, greater than?50% of which was spent counseling/coordinating care.
[2021-09-16] MEDS: traZODone HCL 50 MG TABLET PO (21:37)
[2021-09-17] VITALS: PULSE 92
[2021-09-17 08:54] VITALS: BP 106/53; PULSE 92; RESP 14; O2SAT 97
[2021-09-17] MEDS: methADONE HCl 20 MG/2 ML ORAL.CONC 55 MG PO (09:04)
[2021-09-17 09:05] VITALS: BP 106/53; PULSE 92
[2021-09-17] MEDS: Gabapentin 300 MG CAPSULE PO (09:05)
[2021-09-17] MEDS: Metoprolol Tartrate 12.5 MG HALFTAB PO (09:05)
[2021-09-17] MEDS: Rivaroxaban 20 MG TABLET PO (09:06)
[2021-09-17] MEDS: 0.9 % Sodium Chloride Flush 3 ML SYRINGE IVFLUSH (09:09)
--- NOTE | 2021-09-17 09:14 | P.PNIM_ITS ---
Subjective Subjective Date of Service: 09/17/21 Interval History: cc: ams interval history: no new complaints Cardiovascular Cardiovascular: Reports no additional cardiovascular complaints Gastrointestinal Gastrointestinal: Reports no additional gastrointestinal complaints Physical Exam Vital Signs: Vital Signs: Last Vital Signs Temp 98.7 F 09/16/21 15:30 Pulse 92 09/17/21 09:05 Resp 14 09/17/21 08:54 BP 106/53 L 09/17/21 09:05 Pulse Ox 97 09/17/21 08:54 Body Mass Index 20.5 General: lethargic O X 3, ill appearing Resp:? CTA bilateral, no accessory muscles used CVS: S1,S2,RRR, murmur, no edema GI: soft, non tender, non distended Neuro:? motor grossly intact, alert Psych: indifferent affect, poor insight? Objective Data Active Medications Acetaminophen (Acetaminophen 325 Mg Tablet) 650 mg PO Q6H PRN PRN Reason: Pain, Mild (Pain Scale 1-3) Gabapentin (Gabapentin 300 Mg Capsule) 300 mg PO TID [facility] Last Admin: 09/17/21 09:05 Dose: 300 mg Documented by: HARRY Ceftriaxone Sodium 2 gm/ (Sodium Chloride) 50 mls @ 100 mls/hr IV Q24H [facility] Last Infusion: 09/16/21 14:00 Dose: 0 mls/hr Documented by: LAW Melatonin (Melatonin 3 Mg Tablet) 6 mg PO BEDTIME PRN PRN Reason: Insomnia Methadone HCl (Methadone Hcl 20 Mg/2 Ml Oral.Conc) 55 mg PO DAILY [facility] Last Admin: 09/17/21 09:04 Dose: 55 mg Documented by: HARRY Metoprolol Tartrate (Metoprolol Tartrate 12.5 Mg Halftab) 12.5 mg PO BID [facility]; Protocol Last Admin: 09/17/21 09:05 Dose: 12.5 mg Documented by: HARRY Pharmacy Consult (Consult Rx Perform Med Rec) 1 each MISCELLANE ONCE PRN PRN Reason: Consult order Pharmacy Consult (Consult Rx Vancomycin Dosing) 1 each MISCELLANE DAILY PRN PRN Reason: Consult order Rivaroxaban (Rivaroxaban 20 Mg Tablet) 20 mg PO DAILY [facility] Last Admin: 09/17/21 09:06 Dose: 20 mg Documented by: HARRY Senna (Sennosides 8.6 Mg Tablet) 17.2 mg PO BEDTIME PRN PRN Reason: Constipation Sodium Chloride (0.9 % Sodium Chloride Flush 3 Ml Syringe) 3 ml IVFLUSH QSHIFT [facility] Last Admin: 09/17/21 09:09 Dose: 3 ml Documented by: HARRY Trazodone HCl (Trazodone Hcl 50 Mg Tablet) 50 mg PO BEDTIME [facility] Last Admin: 09/16/21 21:37 Dose: 50 mg Documented by: JANELLE Labs CBC & Chem 7: 09/15/21 06:26 09/15/21 06:26 Microbiology Microbiology Results: Microbiology 09/15/21 06:19 Blood Culture - Preliminary Blood - Venous No growth after 48 hours. 09/15/21 06:26 Blood Culture - Preliminary Blood - Venous No growth after 48 hours. 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 found to be septic. severe sepsis due to recurrent endocarditis in patient with IVDA blood cultures growing strep mitis/oralis 09/13 positive, repeat from 09/15 no growth to day ceftriaxone 2gm q24h (will need 6 weeks form negative culture, day , end Oct 19, 2021) was previously referred to [facility] for severe TS and 1.5cm vegetation, however, risks of surgery deemed to outweigh benefits as patient likely to continue using and reinfect any new prosthesis. 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
[2021-09-17 10:29] LABS: Hemoglobin 11.5 g/dl (14.0-18.0); Mean Corpuscular HGB Conc 31.1 g/dl (31.0-36.0); Mean Corpuscular Hemoglobin 25.6 pg (27.0-33.0); Mean Corpuscular Volume 82.4 fL (80.0-98.0); Mean Platelet Volume 10.8 fL (9.4-12.4); Platelet Count 284 X10*3/uL (160-400); Red Blood Count 4.49 X10*6/uL (4.60-5.80); White Blood Count 12.8 X10*3/uL (4.8-10.8)
[2021-09-17 10:51] LABS: Anion Gap 12 (12-20); Blood Urea Nitrogen 13 mg/dL (9-16); Carbon Dioxide 21 mmol/L (22-29); Chloride 111 mmol/L (96-108); Creatinine Clr Calc Pharmacy 118.9; Estimated Glomerular Filt Rate > 60; Glucose Fasting 79 mg/dL (60-99); Potassium 4.6 mmol/L (3.3-5.1); Sodium 139 mmol/L (135-145)
[2021-09-17 11:45] VITALS: BP 120/67; PULSE 92; RESP 17; O2SAT 95
[2021-09-17] MEDS: Acetaminophen 325 MG TABLET 650 MG PO (12:40)
[2021-09-17] MEDS: cefTRIAXone sodium 2 GM in 0.9 % Sodium Chloride 50 ML IV (13:46)
--- NOTE | 2021-09-17 14:01 | PM.DS ---
DS: Providers Provider Date of Service: 09/17/21 Date of admission: 09/11/21 22:35 Primary care physician: [facility] Consults: 09/11/21 22:35 Addiction Medicine Routine Consulting Provider: Tami Luna Reason for consultation: opiate abuse Consult to Infectious Diseases Routine Consulting Provider: Lena Plascencia Reason for consultation: sepsis; hx endocarditis; non compliant DS: Diagnosis Discharge Diagnosis (1) Sepsis: Status: Deleted DS: Summary Hospital Course Hospital Course: Patient was admitted for severe sepsis and metabolic encephalopathy due to recurrent endocarditis inpatient that uses IV drugs. Blood cultures grew Streptococcus mitis /oralis. they remained positive until 09/15 which has been not growing so far. plan was to continue IV ceftriaxone 2 g daily until 10/19/2021. however, patient decided to leave against medical advice. He was able to demonstrate understanding of his medical conditions and the risks of leaving against medical advice including . Patient had also been treated for opiate dependence with withdrawal with methadone. He was restarted on his Xarelto for history of pulmonary embolism. Patient was explained that we cannot optimally treat him outside the hospital, however we will send prescription for Xarelto and cefuroxime to his pharmacy as they are likely to be better than no treatment at all. Time Spent with Patient Time attestation: Total time spent providing and/or coordinating discharge services: Discharge coordination time: Greater than 30 minutes Quality: Stroke Does the patient have a stroke diagnosis?: No Physical Exam Vital Signs: Vital Signs: Last Vital Signs Temp 98.7 F 09/16/21 15:30 Pulse 92 09/17/21 11:45 Resp 17 09/17/21 11:45 BP 120/67 09/17/21 11:45 Pulse Ox 95 09/17/21 11:45 Body Mass Index 20.5 General: AO X 3, frail Resp: CTA bilateral, no accessory muscles used CVS: S1,S2,RRR, murmur GI: soft, non tender, non distended Neuro: motor grossly intact, alert Psych: appropriate affect, sufficient insight DS: Data Data Completed and Pending Completed studies during hospitalization [Text1]: Procedures Detoxification Services for Substance Abuse Treatment (04/15/21) Labs on day of discharge: Laboratory Results - last 24 hr 09/17/21 09/17/21 10:20 10:20 WBC 12.8 H RBC 4.49 L Hgb 11.5 L Hct 37.0 L MCV 82.4 MCH 25.6 L MCHC 31.1 RDW 16.0 Plt Count 284 D MPV 10.8 Absolute Nucleated RBC 0.000 Nucleated RBC % (auto) 0.0 Sodium 139 Potassium 4.6 Chloride 111 H Carbon Dioxide 21 L Anion Gap 12 BUN 13 Creatinine 0.82 Estim Creat Clear Calc 118.9 Estimated GFR > 60 Fasting Glucose 79 Calcium 9.0 D Preliminary micro results at discharge 09/15/21 06:19 Blood Culture - Preliminary Blood - Venous No growth after 48 hours. 09/15/21 06:26 Blood Culture - Preliminary Blood - Venous No growth after 48 hours. Discharge Plan Discharge Patient Disposition: Left Against Medical Advice Discharge Diagnosis: endocarditis Referrals: [facility] [Primary Care Provider] - 1 Week Discharge Medications: New cefuroxime axetil 500 mg tablet 500 mg PO BID Qty: 60 RF: 0 Continued gabapentin 300 mg capsule 1 cap PO TID RF: 0 Xarelto 20 mg tablet 1 tab PO DAILY Qty: 30 RF: 0 Discharge Orders: Discharge Order (Routine); Ordered 09/17/21 Ordered By: Gaurav Snowden Diet: advance to usual diet Activity on Discharge: As tolerated Care Plan Goals: recovery Health Concerns: endocarditis, opiate dependence Plan of Treatment: cannot treat optimally outside of hospital, you are leaving against medical advice, this may lead to . suboptimally, we will treat with cefuroxime. Assessment: see above Discharge Date/Time: 09/17/21 14:55
--- NOTE | 2021-09-17 14:06 | PC.NURSE ---
At ~ 14:40 pt asked if he could receive additional pain management, after consulting with hospitalist pt was advised that it would not be possible. Pt then stated that he would leave after his IV abx finished infusing. RN advised Dr Snowden, who came down and spoke to pt face to face. Pt reiterated that he wanted to leave provider then had a discussion to ensure that pt understood possible negative outcomes of leaving AMA including serious illness and/or . Pt understands risks. Tami Luna was also contacted
--- NOTE | 2021-09-17 14:24 | MHC.CM.PN ---
PT LEAVING AMA
--- NOTE | 2021-09-17 15:45 | MHC.RECOVRN ---
T/w was notified pt wanted to be discharged [place] [facility] met with pt in [place]. Pt reported precipitant to choosing to discharge was lack of available pain medication. T/w had discussion with pt regarding alternatives as well as reminding patient methadone dose would be increased to 60 mg tomorrow. Pt voiced appreciation but still chose to leave. Discussed harm reduction, available shelters, linkage to [facility], and pts ability to return to the hospital at any time. Pt expressed desire to return to [facility] [place] a couple days. Pt aware of risks of self directed discharge. Pt provided with last dose letter and escorted to decon to retrieve belongings.
--- NOTE | 2021-09-17 16:46 | P.PNADD_ITS ---
Subjective Subjective Date of Service: 09/17/21 Reason For Visit: chest pain Interim History: Patient seen early this afternoon. RSRN present during visit Patient reporting withdrawal sx have improved sigificantly. Complaining of pleuritic pain dorita with deep inspiration. Spent some time reviewing numerous concerns he has including housing and current health conditions. RSRN to provide patient with CSS and TSS facilities for patient to call once admitted to SNF. Patient agreeable with plan. Future oriented, brighter affect. Review of Systems Constitutional: Reports as per HPI, Reports body ache(s) and Reports malaise Mental Status Exam Mental Status Exam Patient Appearance: Appropriate (hospital attire, wrapped in blanket) Patient Orientation: Person, Place, Time and Situation Level of Consciousness: Awake and Appropriate Patient Behavior: Appropriate and Talkative Mood Description: Appropriate Affect Description: Appropriate Patient Cognition Impaired: No Thought Process: Intact and Goal Oriented Thought Content: positive for Goal Oriented Judgement: Fair Diagnostics Vital Signs (24Hr): Vital Signs - 24 hr 09/16/21 21:37 09/17/21 08:54 09/17/21 09:05 Pulse Rate 100 92 92 Respiratory Rate 14 Blood Pressure 115/73 106/53 L 106/53 L Pulse Oximetry 97 09/17/21 11:45 Pulse Rate 92 Respiratory Rate 17 Blood Pressure 120/67 Pulse Oximetry 95 Body Mass Index 20.5 Labs Results: 09/17/21 10:20 09/17/21 10:20 Labs: Laboratory Results - last 48 hr 09/17/21 09/17/21 10:20 10:20 WBC 12.8 H RBC 4.49 L Hgb 11.5 L Hct 37.0 L MCV 82.4 MCH 25.6 L MCHC 31.1 RDW 16.0 Plt Count 284 D MPV 10.8 Absolute Nucleated RBC 0.000 Nucleated RBC % (auto) 0.0 Sodium 139 Potassium 4.6 Chloride 111 H Carbon Dioxide 21 L Anion Gap 12 BUN 13 Creatinine 0.82 Estim Creat Clear Calc 118.9 Estimated GFR > 60 Fasting Glucose 79 Calcium 9.0 D Imaging Radiology Impressions: ITS Impressions Chest X-Ray 09/11/21 19:57 IMPRESSION: No acute cardiopulmonary findings. Chest CTA 09/11/21 21:23 IMPRESSION: No definite acute pulmonary emboli but there are abnormalities seen in the pulmonary vasculature which could be chronic with contraction of the vessels which fill poorly. Extensive pulmonary masses, some cavitary have resolved with some pulmonary parenchymal abnormalities at this time described above. VTE: Positive, most likely chronic or subacute Medications Allergies Allergies Allergy/AdvReac Type Severity Reaction Status Date / Time No Known Allergies Allergy Unverified 07/05/20 15:53 [No Known Allergies*] Assessment & Plan Assessment & Plan (1) Opioid use disorder: Status: Acute Code(s): F11.99 - Opioid use, unspecified with unspecified opioid-induced disorder Assessment and Plan: * At the time of this note patient has signed out against medical advice. * Recovery Support RN was able to provide last dose letter and referral information for OTP * I spent __25____ minutes with the patient and/or on the patient floor today, greater than?50% of which was spent counseling/coordinating care.
== END 2021-09-17 14:55 | disposition left against medical advice (07) | DRG 720 ==
LOC: HO.ED 20:05 → HO.EDOVER 22:47 → HO.IMC 09-13 11:47
PROVIDERS: Physician Assistant; Admitting Provider Hospitalist; Emergency Provider Internal Medicine; PCP Nurse Practitioner Family; Visit Provider Internal Medicine
DX: A40.8 Other streptococcal sepsis (principal); G93.41 Metabolic encephalopathy; R65.20 Severe sepsis without septic shock; I27.82 Chronic pulmonary embolism; I38 Endocarditis, valve unspecified; Z91.14 Patient's other noncompliance with medication regimen; Z86.19 Personal history of other infectious and parasitic diseases; F17.210 Nicotine dependence, cigarettes, uncomplicated; Z71.6 Tobacco abuse counseling; F11.23 Opioid dependence with withdrawal; Z20.822 Contact with and (suspected) exposure to COVID-19; Z91.19 Patient's noncompliance with other medical treatment and regimen; Z95.2 Presence of prosthetic heart valve; Z59.02 Unsheltered homelessness; Z79.01 Long term (current) use of anticoagulants; Z79.899 Other long term (current) drug therapy
CPT/HCPCS: 0241U; 36415; 71045; 71275; 80048; 80076; 80202; 80307; 81001; 82550; 82947; 83605; 83690; 83735; 83880; 84484; 85025; 85027; 87040; 87077; 87186; 87205; 93005; 96361; 96374; 96375; 99285; 99291; J0696; J1170; J2405; J2543; J3370; J3475; Q9967

== ENCOUNTER 2021-10-07 19:12 | Inpatient (IN) | payer MEDICAID, SELFPAY ==
--- NOTE | ~2021-10-07 | CT_ITS ---
EXAMINATION: CT HEAD WITHOUT CONTRAST CLINICAL INFORMATION: Altered mental status COMPARISON: 03/21/2011 TECHNIQUE: Contiguous axial imaging was performed from the skull base to vertex without intravenous contrast. This CT examination was performed using dose optimization techniques as appropriate, variously including the following: * Automated exposure control * Adjustment of mA and/or kV according to patient size (this includes techniques or standardized protocols for targeted exams where dose is matched to indication/reason for exam; i.e. extremities or head) Use of iterative reconstruction technique DLP: 708 mGy-cm. FINDINGS: There is no evidence of acute intracranial hemorrhage or territorial infarction. No abnormal mass effect or midline shift is seen. Daley to white matter differentiation is well preserved. No extra-axial fluid collections are identified. No hydrocephalus. No significant volume loss. There is no abnormal attenuation within the brain parenchyma. The osseous structures and soft tissues are normal. Mild opacification of the ethmoid air cells. The mastoid air cells and visualized portions of the paranasal sinuses are otherwise well aerated. CT/CT head/brain wo con IMPRESSION: No acute intracranial pathology.
--- NOTE | ~2021-10-07 | XR_ITS ---
EXAMINATION: XR CHEST CLINICAL INFORMATION: Crackles on exam. COMPARISON: Most recent CTA chest and chest radiograph dated 09/11/2021. TECHNIQUE: Frontal view of the chest was obtained. FINDINGS: No new airspace consolidation. No pleural effusion or pneumothorax. Stable cardiomediastinal silhouette. Sternal hardware is redemonstrated. Abandoned pacer leads are noted. XR/XR chest 1V IMPRESSION: No acute cardiopulmonary findings.
--- NOTE | ~2021-10-07 | CT_ITS ---
EXAMINATION: CT ANGIOGRAM OF THE CHEST WITH AND WITHOUT CONTRAST (CT PULMONARY ANGIOGRAM FOR PE) CT ABDOMEN AND PELVIS WITH CONTRAST CLINICAL INFORMATION: Tachycardia. Abdominal pain. COMPARISON: 09/11/2021. TECHNIQUE: Prior to contrast administration, noncontrast localization images were obtained. Subsequently, multidetector volumetric imaging was performed from the thoracic inlet to the pubic symphysis following the administration of 85 mL Omnipaque 350 intravenous contrast. This was followed by multidetector acquisition of the abdomen and pelvis. No contrast reaction reported Sagittal, coronal, and MIP oblique sagittal reformatted images were obtained on the CT workstation, uploaded to PACS, and reviewed. This CT examination was performed using dose optimization techniques as appropriate, variously including the following: *Automated exposure control *Adjustment of mA and/or kV according to patient size (this includes techniques or standardized protocols for targeted exams where dose is matched to indication/reason for exam; i.e. extremities or head) *Use of iterative reconstruction technique Total exam dose-length product 881 mGy-cm FINDINGS: QUALITY OF STUDY/CONTRAST BOLUS: Satisfactory. PULMONARY ARTERIES: There is no central or lobar pulmonary arterial filling defect. No segmental filling defects seen. Subsegmental levels are not well evaluated. THORACIC AORTA: No aneurysm or dissection. LUNG: The central airways are patent. Motion limits evaluation of subtle findings in the lung parenchyma. Overall decreasing prominence of the previous groundglass left upper lobe opacity on series 10 image 176. Significant improvement of the opacity at the medial left lower lobe, with residual patchy opacity remaining on image 264. Minimal peripheral right lower lobe nodularity is similar to prior. Right middle lobe nodule associated with an area of scarring measuring 0.5 cm on series 10 image 237 is unchanged. The subpleural right upper lobe nodule is also similar to prior seen on image 188. Nodularities of the lung apices are also unchanged. PLEURA: No pleural effusion or pneumothorax. MEDIASTINUM: Prominent heart. No pericardial effusion. There is hilar lymph node prominence again noted. This is similar to prior. No evidence of septal bowing or right heart strain. CHEST WALL/AXILLA: No axillary or internal mammary lymphadenopathy. LIVER, GALLBLADDER, AND BILIARY TREE: The liver is enlarged measuring 21.5 cm in CC dimension. Normal shape of the liver with heterogeneous attenuation suggestive of steatosis. Small volume ascites. No biliary ductal dilatation or focal hepatic lesion. Normally distended. No stones are seen. PANCREAS: Unremarkable. SPLEEN: Unremarkable. ADRENAL GLANDS: Unremarkable. KIDNEYS AND URETERS: The kidneys are normal in size, shape, and attenuation. No hydronephrosis, hydroureter, or calculi seen. No perinephric stranding. BLADDER: Unremarkable. GASTROINTESTINAL TRACT: The stomach is unremarkable. Normal caliber small bowel. No obstruction. No colonic wall thickening. Suture line noted in the region of the cecum. No free air. ABDOMINAL WALL: No significant hernia is appreciated. Anasarca. LYMPH NODES: Normal. VASCULAR: Normal caliber aorta with mild atherosclerotic calcification. PELVIC VISCERA: The prostate and seminal vesicles are unremarkable. OSSEOUS STRUCTURES: No acute or suspicious osseous abnormality. CT/CT angio chest PE protocol IMPRESSION: 1. No acute pulmonary embolism. 2. Continued improvement of lung opacities when compared to the prior study. The largest opacity that remains is seen at the medial left lower lobe. 3. Persistent hilar adenopathy which is likely reactive. 4. Hepatic steatosis with hepatomegaly. Small volume ascites appears slightly increased from prior. VTE: negative
--- NOTE | ~2021-10-07 | CT_ITS ---
EXAMINATION: CT ABDOMEN AND PELVIS WITH CONTRAST CLINICAL INFORMATION: Abdominal pain. COMPARISON: CT abdomen/pelvis dated from 10/08/2021 and 06/12/2020. TECHNIQUE: Multidetector volumetric images were obtained from the superior aspect of the liver through the pubic symphysis following administration 85 mL of Omnipaque 350 intravenous contrast. Sagittal and coronal reformatted images were obtained on the technologist's workstation. Oral contrast: No This CT examination was performed using dose optimization techniques as appropriate, variously including the following: *Automated exposure control *Adjustment of mA and/or kV according to patient size (this includes techniques or standardized protocols for targeted exams where dose is matched to indication/reason for exam; i.e. extremities or head) *Use of iterative reconstruction technique DLP: 467 mGy-cm FINDINGS: LUNG BASES: Evaluation is limited due to motion. A 0.6 cm francisco fissural nodule in the right lower lobe (6:84) is unchanged since 2019. No focal consolidation or pleural effusions. Mild subsegmental atelectasis. Cardiomegaly. Coronary calcifications. Questionable prostatic tricuspid valve. Sternotomy wires. LIVER, GALLBLADDER, AND BILIARY TREE: Worsening hepatomegaly now measuring up to approximately 24 cm in maximum dimension versus approximately 22 cm previously. The examination was obtained in a late arterial phase which limits assessment of hepatic steatosis. However overall, the attenuation of the liver parenchyma is significantly decreased when compared to the spleen suggestive of hepatic steatosis. The parenchyma enhancement is also somewhat heterogeneous and patchy throughout which is similar to priors and with no definite measurable focal lesions or masses. There is no biliary ductal dilatation. The gallbladder is underdistended with no hyperdense stones. Pericholecystic fluid is indeterminate in the setting of ascites. PANCREAS: No focal lesions. The main pancreatic duct is nondilated. SPLEEN: The spleen measures up to 13.5 cm in maximum axial dimensions which is similar to prior. ADRENAL GLANDS: Unremarkable. KIDNEYS AND URETERS: The kidneys are normal in size, shape, and attenuation. No hydronephrosis, hydroureter, or calculi seen. No perinephric stranding. BLADDER: Unremarkable. GASTROINTESTINAL TRACT: Evaluation of wall thickening and mucosal abnormalities is limited in the absence of oral contrast, luminal underdistention and ascites. No evidence of bowel obstruction. Moderate stool burden throughout the colon with sigmoid diverticulosis. ABDOMINAL WALL: Anasarca. No hernia. LYMPH NODES: Inguinal lymphadenopathy is unchanged. Enlarged iliac lymph nodes are also stable, for instance a 0.8 cm short axis left external iliac lymph node (4:38). VASCULAR: Atherosclerotic disease. The abdominal aorta is of normal diameter. Evaluation of the venous structures is suboptimal given the early timing of intravenous contrast, therefor a subtle hypodensity in the lumen of the SMV (3:44) is indeterminate and potentially artifactual. PELVIC VISCERA: No pelvic masses. OSSEOUS STRUCTURES: No acute or aggressive osseous abnormalities. CT/CT abdomen pelvis w con IMPRESSION: Increase hepatomegaly with redemonstration of hepatic steatosis and similar heterogeneous enhancement of the liver parenchyma. Borderline splenomegaly, similar to prior. Stable volume of ascites and anasarca. Indeterminate luminal defect in the distal SMV which could potentially represent a nonocclusive thrombus. However, evaluation was obtained in a late arterial phase which is suboptimal to assess venous structures and this could represent an artifact. If thrombosis is clinically suspected, consider further correlation with a vascular ultrasound or a CT venogram. Pericholecystic fluid is indeterminate in the setting of ascites. Clinical correlation should be obtained for pain and if there is suspicious for acute cholecystitis, further evaluation with a liver ultrasound could be obtained.
--- NOTE | 2021-10-07 19:25 | ED_ITS ---
HPI - Psych General Chief Complaint: Overdose Stated Complaint: OD (unkown substance) Time Seen by Provider: 10/07/21 19:15 Source: patient Mode of arrival: EMS Limitations: no limitations History of Present Illness HPI Narrative: This is a 30-year-old male past medical history significant for opiate use disorder, hepatitis-C presenting to emergency depatment with EMS with concerns of a possible overdose. Patient is not being cooperative, telling me he wants to leave and im sad yo , EMS is not sure if patient used heroin today. However, patient tells me he sniffed 1 bag of heroin, he tells me this is all we need to know. He is rocking forward and backwards in bed saying he wants to leave and he does not want to be here. He is not answering questions appropriately. He denies suicidal ideation and homicidal ideation. No evidence signs of trauma. MD complaint: feels depressed ( im sad yo ) Duration: constant History of same: Yes Relieving factors: none Exacerbating factors: none Context: recent drug abuse Associated psychiatric symptoms: none Associated symptoms: denies other symptoms Treatments prior to arrival: none Related Data Home Medications Medication Instructions Recorded Confirmed gabapentin 300 mg capsule 1 cap PO TID 09/11/21 09/11/21 Previous Rx's Medication Instructions Recorded cefuroxime axetil 500 mg tablet 500 mg PO BID #60 tab 09/17/21 rivaroxaban 20 mg tablet (Xarelto) 1 tab PO DAILY #30 tab 09/17/21 Allergies Allergy/AdvReac Type Severity Reaction Status Date / Time No Known Allergies Allergy Unverified 07/05/20 15:53 [No Known Allergies*] Review of Systems Review of Systems: Constitutional : No Fever, No Chills ENT/Mouth : No sore throat, No Rhinorrhea Eyes: No Eye Pain, No Swelling, No Redness Cardiovascular : No Chest Pain, No SOB Respiratory : No Cough, No Sputum Gastrointestinal : No Nausea, No Vomiting, No Diarrhea, No abdominal Pain Genitourinary : No Dysuria, No Hematuria Musculoskeletal : No joint pain, No Myalgias, No Joint Swelling Skin : No Skin Lesions, No rash Neuro : No Weakness, No Numbness Psych : No Anxiety, No Depression, No SI/HI/AH/VH Heme/Lymph: No Bruising, No Bleeding Endocrine : No Polyuria, No Polydipsia All other systems reviewed and are negative Yes all other systems are reviewed and are negative [facility] Past Medical History Attestation statement: The following information was validated with the patient. Source: old records reviewed and nursing notes reviewed Medical History Anasarca Bacteremia Endocarditis HCV (hepatitis C virus) Pulmonary embolism Right heart failure Steatosis, liver Tricuspid valve stenosis Surgical History History of tricuspid valve replacement with bioprosthetic valve Social History Social History Household Members: Other Household Members Other:: none. homeless Housing: Homeless Do you presently have visiting nurse or other home services: No Unable to assess alcohol history related to: Refusing to respond Alcohol intake: unknown Patient Tobacco Use Status: Current everyday Tobacco user Tobacco use type: Cigarette Use of substances other than those prescribed or required for medical reasons: Yes Substance Use Type: Heroin Substance Use Frequency: Chronic Longstanding Last Used Substance: Unknown Advance Directives: No Advance Directives Information Provided: No service: No Current occupational status: unemployed Physical Exam Vital Signs: Vital Signs: Last Vital Signs Temp 99.7 F 10/07/21 23:14 Pulse 115 H 10/08/21 00:00 Resp 18 10/08/21 00:00 BP 105/62 10/08/21 00:00 Pulse Ox 94 10/08/21 00:00 BMI result Body Mass Index 23.5 Vital signs are stable Appearance: Alert.? Oriented X3.? No acute distress.? Patient is rocking back and forth on the bed, telling me he wants to leave. Head: Normocephalic, atraumatic, no step-offs or deformities Eyes: Pupils equal, round and reactive to light.?+pinpoint ENT: Pharynx normal.? Neck: Normal inspection.? Neck supple.? CVS: Normal heart rate and rhythm.? Pulses normal.?+ murmur Respiratory: No respiratory distress.? + crackles RLL Abdomen: Soft and nontender.? Skin: Skin warm and dry.? Normal skin color.? Normal skin turgor.? Extremities: No lower extremity edema.? 5/5 strength to bilateral upper and lower extremities Back: No midline tenderness, no C-spine tenderness, full range of motion, no CVA tenderness bilaterally Neuro: Oriented X 3.? No motor deficit.? No sensory deficit. Cranial nerves 2- 12 intact Course Reevaluation(s) Reevaluation #1: Acetaminophen, salicylates, ethanol negative. chest x-ray negative. COVID negative. Laboratory study show an elevated BUN at 23, likely secondary to dehydration. His total bilirubin is noted to be elevated at 1.4, and his alk-phos is noted to be 282 however, patient is not complaining of abdominal pain, or any urinary symptoms. It is also noted that these values have been elevated in the past I do not suspect an acute etiology. Patient tells me he wants to go home. Time: 21:20 Reevaluation #2: Patient is refusing CBC and tells me he wants to go home. I will have nurse recheck his vital signs,and try to obtain repeat CBC. Patient does not want any resources in is not seeking detox from opiates. Refusing everything at this time Time: 21:54 Reevaluation #3: Patient is noted to have an axillary temperature of 99.7?. He continues to refuse laboratory studies, he still appears to be altered, confused and not answering questions appropriatly. CBC still ordered but not obtained have asked nursing staff and techs to obtain multiple times. I spoke to the patient and explained to him that i think he is sick and i need a rectal temperature he declined. He allowed blood work at this time and an IV has been started. Time: 23:00 Additional Reevaluation(s): 2415 At this time I suspect infection. WBC 26.2, a baseline anemia is noted, plts noted to be low however they have been low in the past. Lactic 0.9. At this time I have ordered Zosyn and vancomycin. I have also ordered a CT of the head/ b rain, abdomen and a CTA of the chest to rule out PE. I have also ordered a troponin. As endocarditis is on my differential 2430 IV blown, have asked nuring staff to try to get a line on the patient. Trop 22.6 0130 Sign out will be given to . Pending second trop at 0240. CT of head/brain, abdomen and pelvis and CTA. Report has been given to the hospitalist orders can be put in after imaging is obtained MDM - Psych MDM Narrative Medical decision making narrative: 1926 30 yo M pmhx Hep C and opiate use disorder presents with a possible opiate overdose VIA EMS. Patient not cooperative, saying im sad yo I used one bag of heroin. Denies any complaints at this alma Upon physical examination there are crackles noted to the right lower lobe, regular rate and rhythm with a murmur heard ?systolic murmur. Abdomen soft nontender nondistended. No focal neuro deficits. Cranial nerves 2-12 intact. Pupils equal round and reactive to light however, they appear to be pinpoint. Patient not answering questions appropriately states he wants to leave. Screaming i want my mom Plan at this time is to obtain basic labs, urine, urine toxicology, ethanol, salicylates, acetaminophen Medical Records Attestation: I reviewed the patient's medical records. Lab Data Attestation: I reviewed the patient's lab results. Result diagrams: 10/07/21 23:44 10/07/21 20:39 Labs: Lab Results 10/07/21 10/07/21 10/07/21 Range/Units 20:32 20:39 20:39 WBC RBC Hgb Hct MCV MCH MCHC RDW Plt Count MPV Immature Gran % (Auto) Neut % (Auto) Lymph % (Auto) Barbour % (Auto) Eos % (Auto) Baso % (Auto) Lymph # (Auto) Barbour # (Auto) Eos # (Auto) Baso # (Auto) Abs Immat Gran (auto) Absolute Neuts (auto) Absolute Nucleated RBC Nucleated RBC % (auto) Smear Tech's Comments Sodium 135 (135-145) mmol/L Potassium 4.1 (3.3-5.1) mmol/L Chloride 108 (96-108) mmol/L Carbon Dioxide 17 L (22-29) mmol/L Anion Gap 14 (12-20) BUN 23 H (9-16) mg/dL Creatinine 1.19 (0.5-1.4) mg/dL Estim Creat Clear Calc 80.4 Estimated GFR > 60 Random Glucose 103 (60-115) mg/dL Lactic Acid (0.5-2.0) mmol/L Calcium 8.3 L D (8.4-10.2) mg/dL Magnesium 1.6 (1.6-2.6) mg/dL Total Bilirubin 1.4 H (0.0-1.0) mg/dL AST 25 D (5-37) U/L ALT 21 (0-40) U/L Alkaline Phosphatase 282 H D (39-117) U/L Troponin I High Sens (<3.5-35.0) ng/L Total Protein 6.7 (6.5-8.0) g/dL Albumin 3.0 L (3.5-5.0) g/dL Salicylates < 5.0 L (15-30) mg/dL Acetaminophen < 1 (<30) mcg/mL Ethyl Alcohol < 10 mg/dL COVID-19 ([facility]) Negative (Negative) COVID-19 Clin Com See Note 10/07/21 10/07/21 10/07/21 Range/Units 23:44 23:44 23:44 WBC Cancelled 26.2 H RBC Cancelled 4.22 L Hgb Cancelled 10.7 L Hct Cancelled 32.2 L MCV Cancelled 76.3 L MCH Cancelled 25.4 L MCHC Cancelled 33.2 RDW Cancelled 17.4 H Plt Count Cancelled 130 L D MPV Cancelled 11.3 Immature Gran % (Auto) Cancelled 1.3 H Neut % (Auto) Cancelled 84.2 H Lymph % (Auto) Cancelled 7.6 L Barbour % (Auto) Cancelled 6.7 Eos % (Auto) Cancelled 0.0 Baso % (Auto) Cancelled 0.2 Lymph # (Auto) Cancelled 2.0 Barbour # (Auto) Cancelled 1.8 H Eos # (Auto) Cancelled 0.0 Baso # (Auto) Cancelled 0.1 Abs Immat Gran (auto) Cancelled 0.35 H Absolute Neuts (auto) Cancelled 22.1 H Absolute Nucleated RBC Cancelled 0.000 Nucleated RBC % (auto) Cancelled 0.0 Smear Tech's Comments VERIFIED Sodium (135-145) mmol/L Potassium (3.3-5.1) mmol/L Chloride (96-108) mmol/L Carbon Dioxide (22-29) mmol/L Anion Gap (12-20) BUN (9-16) mg/dL Creatinine (0.5-1.4) mg/dL Estim Creat Clear Calc Estimated GFR Random Glucose (60-115) mg/dL Lactic Acid 0.9 (0.5-2.0) mmol/L Calcium (8.4-10.2) mg/dL Magnesium (1.6-2.6) mg/dL Total Bilirubin (0.0-1.0) mg/dL AST (5-37) U/L ALT (0-40) U/L Alkaline Phosphatase (39-117) U/L Troponin I High Sens (<3.5-35.0) ng/L Total Protein (6.5-8.0) g/dL Albumin (3.5-5.0) g/dL Salicylates (15-30) mg/dL Acetaminophen (<30) mcg/mL Ethyl Alcohol mg/dL COVID-19 ([facility]) (Negative) COVID-19 Clin Com 10/07/21 Range/Units 23:44 WBC RBC Hgb Hct MCV MCH MCHC RDW Plt Count MPV Immature Gran % (Auto) Neut % (Auto) Lymph % (Auto) Barbour % (Auto) Eos % (Auto) Baso % (Auto) Lymph # (Auto) Barbour # (Auto) Eos # (Auto) Baso # (Auto) Abs Immat Gran (auto) Absolute Neuts (auto) Absolute Nucleated RBC Nucleated RBC % (auto) Smear Tech's Comments Sodium (135-145) mmol/L Potassium (3.3-5.1) mmol/L Chloride (96-108) mmol/L Carbon Dioxide (22-29) mmol/L Anion Gap (12-20) BUN (9-16) mg/dL Creatinine (0.5-1.4) mg/dL Estim Creat Clear Calc Estimated GFR Random Glucose (60-115) mg/dL Lactic Acid (0.5-2.0) mmol/L Calcium (8.4-10.2) mg/dL Magnesium (1.6-2.6) mg/dL Total Bilirubin (0.0-1.0) mg/dL AST (5-37) U/L ALT (0-40) U/L Alkaline Phosphatase (39-117) U/L Troponin I High Sens 22.6 (<3.5-35.0) ng/L Total Protein (6.5-8.0) g/dL Albumin (3.5-5.0) g/dL Salicylates (15-30) mg/dL Acetaminophen (<30) mcg/mL Ethyl Alcohol mg/dL COVID-19 ([facility]) (Negative) COVID-19 Clin Com ECG Data Attestation: I personally reviewed and interpreted this ECG as follows: ECG interpretation date: 10/08/21 ECG interpretation time: 12:11 Prior ECG tracings: available for review Interpretation: ventricular rate of 107, OR normal, QRS normal, QTC slightly prolonged. EKG shows sinus tachycardia, no ST elevations T wave inversions in V2.V3 T wave inversions no present in previous EKG from September 11, 2021 Critical Care Time Critical Care Time Critical Care Time: Yes Total Critical Care Time: 60 Attestation: I attest to this time spent taking care of the patient , doing history and physical exam, obtaining laboratory studies and reviewing them, ordering imaging, and reviewing imaging, speaking to my supervising physician, and speaking to the hospitalist Discharge Plan Discharge Clinical Impression: Opioid use disorder, Leukocytosis, Elevated troponin Patient Disposition: Still a Patient Instructions: Opioid Withdrawal (ED), Opioid Use Disorder (ED) Additional Instructions: Take your medications as prescribed. If you were prescribed antibiotics today, it is important that you take your medication to their entirety, do not skip any doses, do not finish them early. Follow-up with your primary care provider this week. Return to the emergency department with new or worsening symptoms. In case of emergency call 911 Prescriptions: No Action gabapentin 300 mg capsule 1 cap PO TID RF: 0 cefuroxime axetil 500 mg tablet 500 mg PO BID Qty: 60 RF: 0 Xarelto 20 mg tablet 1 tab PO DAILY Qty: 30 RF: 0 Referrals: Physician,Unknown J [Primary Care Provider] - 2 days
[2021-10-07 19:34] VITALS: BP 128/82; BP 128/85; PULSE 113; PULSE 138; RESP 22; TEMP 36.7; O2SAT 100; O2SAT 96; BMI 23.5
[2021-10-07] MEDS: LORazepam 1 MG TABLET PO (19:59)
[2021-10-07] MEDS: diphenhydrAMINE HCL 25 MG TABLET 50 MG PO (19:59)
[2021-10-07 20:49] LABS: COVID-19 Test Negative (Negative)
[2021-10-07 20:58] LABS: Ethanol < 10 mg/dL
[2021-10-07 21:04] LABS: Acetaminophen LAB < 1 mcg/mL (<30); Alanine Aminotransferase 21 U/L (0-40); Alkaline Phosphatase 282 U/L (39-117); Anion Gap 14 (12-20); Aspartate Amino Transferase 25 U/L (5-37); Bilirubin Total 1.4 mg/dL (0.0-1.0); Blood Urea Nitrogen 23 mg/dL (9-16); Calcium 8.3 mg/dL (8.4-10.2); Carbon Dioxide 17 mmol/L (22-29); Chloride 108 mmol/L (96-108); Creatinine Clr Calc Pharmacy 80.4; Estimated Glomerular Filt Rate > 60; Glucose Random 103 mg/dL (60-115); Magnesium 1.6 mg/dL (1.6-2.6); Potassium 4.1 mmol/L (3.3-5.1); Salicylate < 5.0 mg/dL (15-30); Sodium 135 mmol/L (135-145); Total Protein 6.7 g/dL (6.5-8.0)
[2021-10-07 22:00] VITALS: BP 118/66; PULSE 130; RESP 15; O2SAT 96
--- NOTE | 2021-10-07 22:00 | HO.SUDE ---
Pt unable to participate in SUDE due to his altered mental status.
[2021-10-07 23:14] VITALS: BP 105/55; PULSE 109; RESP 18; TEMP 37.6; O2SAT 94
--- NOTE | 2021-10-07 23:23 | ECG_ITS ---
Test Reason : WEAKNESS Blood Pressure : / mmHG Vent. Rate : 107 BPM Atrial Rate : 107 BPM P-R Int : 128 ms QRS Dur : 078 ms QT Int : 384 ms P-R-T Axes : 079 082 054 degrees QTc Int : 512 ms Sinus tachycardia Nonspecific T wave abnormality Abnormal ECG When compared with ECG of 26-MAY-2009 00:15, T inversions more prominent Referred By: Fartun Rico Electronically Signed By:VIOLET SULLIVAN
[2021-10-07 23:55] LABS: Basophils Absolute Auto 0.1 X10*3/uL (0.0-0.2); Basophils Percent Auto 0.2 % (0-2); Monocytes Percent Auto 6.7 % (2-11); SCAN SMEAR FLAG 1
[2021-10-07 23:57] LABS: Hematocrit 32.2 % (42.0-52.0); Hemoglobin 10.7 g/dl (14.0-18.0); Imm Gran Abs Auto 0.35 X10*3/uL (0.00-0.03); Imm Gran Pct Auto 1.3 % (0.0-0.4); Lymphocytes Percent Auto 7.6 % (20-40); MANUAL DIFF FLAG SCAN; Mean Corpuscular HGB Conc 33.2 g/dl (31.0-36.0); Mean Corpuscular Hemoglobin 25.4 pg (27.0-33.0); Mean Corpuscular Volume 76.3 fL (80.0-98.0); Mean Platelet Volume 11.3 fL (9.4-12.4); Monocytes Absolute Auto 1.8 X10*3/uL (0.1-1.2); Neutrophils Absolute Auto 22.1 x10*3/uL (2.0-8.3); Neutrophils Percent Auto 84.2 % (45-73); PLT ABN DIST 1; Platelet Count 130 X10*3/uL (160-400); Red Blood Count 4.22 X10*6/uL (4.60-5.80); Red Cell Distribution Width 17.4 % (11.0-16.0); White Blood Count 26.2 X10*3/uL (4.8-10.8)
[2021-10-08] VITALS (8 sets, daily range): BP systolic 95–122; BP diastolic 62–77; PULSE 85–115; RESP 18–24; TEMP 37.2; O2SAT 94–96
[2021-10-08 00:07] LABS: Lactic Acid 0.9 mmol/L (0.5-2.0)
[2021-10-08 00:16] LABS: SLIDE REVIEW VERIFIED
[2021-10-08] MEDS: 0.9 % Sodium Chloride 1,000 ML 999 ML IV ×2 (00:17→01:15)
[2021-10-08] MEDS: vancomycin HCL 750 MG in 0.9 % Sodium Chloride 250 ML 265 MG IV (00:30)
[2021-10-08 00:45] LABS: Troponin-I High Sensitivity 22.6 ng/L (<3.5-35.0)
[2021-10-08] MEDS: iohexoL 350 MG/ML 100 ML INFUS..BTL 85 ML IV (01:37)
[2021-10-08] MEDS: Piperacillin Sodium/Tazobactam 3.375 GM in 0.9 % Sodium Chloride 50 ML IV ×4 (01:50→22:30)
--- NOTE | 2021-10-08 01:56 | PC.NURSE ---
Patient has been uncooperative since arriving this evening. He continually states that he doesn't want help and wants to leave. He has threatened staff and been verbally abusive since arriving.
[2021-10-08 02:16] LABS: Prothrombin Time 22.8 SEC (9.9-13.0)
[2021-10-08 02:18] LABS: Partial Thromboplastin Time 39.9 SEC (24.1-38.0)
[2021-10-08 03:26] LABS: Amphetamine Screen Urine Not Detected (Not Detect); Barbiturates, Urine Not Detected (Not Detect); Benzodiazepines Screen Urine Not Detected (Not Detect); Cannabinoid Screen Urine Not Detected (Not Detect); Cocaine Screen Urine POSITIVE (Not Detect); Fentanyl, urine POSITIVE (Not Detect); Opiate Screen Urine POSITIVE (Not Detect); Phencyclidine Screen Urine Not Detected (Not Detect)
--- NOTE | 2021-10-08 04:03 | P.HPHOSP_ITS ---
History of Present Illness Date of Service: 10/08/21 Chief Complaint: Altered mental status 30-year-old male with a past medical history of IV drug abuse, directed to the lower replacement, recurrent endocarditis, hepatitis-C, history of pulmonary embolism-noncompliant with Xarelto; recent admission to the hospital for endocarditis/streptococcal bacteremia; left AMA on 09/17/21-interrupted antibiotic therapy; has been abusing drugs-cocaine and heroin; presented today to the hospital with a chief complaint of altered mental status. Patient is drowsy/sleepy. Did not engage in interview process even after mu ltiple items including with the RN. Most of the history obtained from the records and the ER staff. ER staff reported that patient was found on the road altered; subsequently brought him to the ER; on presentation noted to have stable vitals; but has dry mucosa and pinpoint pupils; patient was not given more Narcan; patient was responding to verbal commands but falls back to sleep; ER team was also unable to obtain history from the patient but briefly he was telling that he has been using heroin and used prior to coming to the hospital; Patient also reported to the ER team that he was not taking his home Xarelto; Review of all other systems is limited. ER course: Per ER team patient noted a blood pressure of 99/66; coarse breath sounds; murmur present; lab showed elevation of creatinine from 0.8-1.19; leukocytosis of 26; blood cultures were sent; given broad-spectrum antibiotics vancomycin and Zosyn; CT head was done which showed no acute intracranial process; CT chest showed improving cavitary pulmonary lesions from prior studies; CT abdomen showed hepatic steatosis, otherwise no acute pathology; admitted for further management. [facility] Medical History Anasarca Bacteremia Endocarditis HCV (hepatitis C virus) Pulmonary embolism Right heart failure Steatosis, liver Tricuspid valve stenosis Pertinent family history: Patient did not provide any information Surgical History History of tricuspid valve replacement with bioprosthetic valve Social History Household Members: Other Household Members Other:: none. homeless Housing: Homeless Do you presently have visiting nurse or other home services: No Unable to assess alcohol history related to: Refusing to respond Alcohol intake: unknown Patient Tobacco Use Status: Current everyday Tobacco user Tobacco use type: Cigarette Use of substances other than those prescribed or required for medical reasons: Yes Substance Use Type: Heroin Substance Use Frequency: Chronic Longstanding Last Used Substance: Unknown Advance Directives: No Advance Directives Information Provided: No service: No Current occupational status: unemployed Meds Allergies Allergy/AdvReac Type Severity Reaction Status Date / Time No Known Allergies Allergy Unverified 07/05/20 15:53 [No Known Allergies*] Active Medications: Current Medications Acetaminophen (Acetaminophen 325 Mg Tablet) 650 mg PO Q6H PRN PRN Reason: Pain, Mild (Pain Scale 1-3) Clonidine HCl (Clonidine Hcl 0.1 Mg Tablet) 0.1 mg PO TID PRN; Protocol PRN Reason: anxiety/restlessness Sodium Chloride (Ns) 1,000 mls @ 100 mls/hr IVCONT .Q10H CRISTINA Vancomycin HCl 1,000 mg/ (Sodium Chloride) 270 mls @ 270 mls/hr IV Q12H CRISTINA Piperacillin Sod/Tazobactam (Sod 3.375 gm/ Sodium Chloride) 50 mls @ 100 mls/hr IV Q6H CRISTINA Melatonin (Melatonin 3 Mg Tablet) 6 mg PO BEDTIME PRN PRN Reason: Insomnia Pharmacy Consult (Consult Rx Vancomycin Dosing) 1 each MISCELLANE DAILY PRN PRN Reason: Consult order Pharmacy Consult (Consult Rx Vancomycin Dosing) 1 each MISCELLANE DAILY PRN PRN Reason: Consult order Rivaroxaban (Rivaroxaban 20 Mg Tablet) 20 mg PO DAILY CRISTINA Senna (Sennosides 8.6 Mg Tablet) 17.2 mg PO BEDTIME PRN PRN Reason: Constipation Sodium Chloride (0.9 % Sodium Chloride Flush 3 Ml Syringe) 3 ml IVFLUSH QSHIFT [facility] Home Medications Medication Instructions Recorded Confirmed Last Taken Type No Known Home Meds 10/08/21 10/08/21 Unknown History Physical Exam Vital Signs and Narrative: Vital Signs: Last Vital Signs Temp 99 F 10/08/21 02:51 Pulse 87 10/08/21 02:51 Resp 23 H 10/08/21 02:51 BP 99/66 10/08/21 02:51 Pulse Ox 96 10/08/21 02:51 BMI result Body Mass Index 23.5 Gen: Appears be in no acute distress HEENT: NCAT, dry mucosa. Pinpoint pupils Pulmonary: Vesicular breath sounds, fair air entry CVS: Murmur present Abdomen: BS+, Soft, Nontender Extremities: Warm well perfused Neuro: Drowsy; response to verbal commands; protecting airways; moves all extremities equally Results Labs CBC and Chem 7: 10/07/21 23:44 10/07/21 20:39 Labs: Laboratory Results - last 24 hr 10/07/21 10/07/21 10/07/21 20:32 20:39 20:39 MCV MCH MCHC RDW Plt Count MPV Immature Gran % (Auto) Neut % (Auto) Lymph % (Auto) [place] % (Auto) Eos % (Auto) Baso % (Auto) Lymph # (Auto) [place] # (Auto) Eos # (Auto) Baso # (Auto) Abs Immat Gran (auto) Absolute Neuts (auto) Absolute Nucleated RBC Nucleated RBC % (auto) Smear Tech's Comments PT INR APTT Anion Gap 14 Estim Creat Clear Calc 80.4 Estimated GFR > 60 Random Glucose 103 Lactic Acid Calcium 8.3 L D Magnesium 1.6 Total Bilirubin 1.4 H AST 25 D ALT 21 Alkaline Phosphatase 282 H D Troponin I High Sens Total Protein 6.7 Albumin 3.0 L Salicylates < 5.0 L Urine Opiates Screen Urine Fentanyl Screen Acetaminophen < 1 Ur Barbiturates Screen Ur Phencyclidine Scrn Ur Amphetamines Screen U Benzodiazepines Scrn Urine Cocaine Screen U Marijuana (THC) Screen Ethyl Alcohol < 10 COVID-19 ([facility]) Negative COVID-19 Clin Com See Note 10/07/21 10/07/21 10/07/21 23:44 23:44 23:44 MCV Cancelled 76.3 L MCH Cancelled 25.4 L MCHC Cancelled 33.2 RDW Cancelled 17.4 H Plt Count Cancelled 130 L D MPV Cancelled 11.3 Immature Gran % (Auto) Cancelled 1.3 H Neut % (Auto) Cancelled 84.2 H Lymph % (Auto) Cancelled 7.6 L [place] % (Auto) Cancelled 6.7 Eos % (Auto) Cancelled 0.0 Baso % (Auto) Cancelled 0.2 Lymph # (Auto) Cancelled 2.0 [place] # (Auto) Cancelled 1.8 H Eos # (Auto) Cancelled 0.0 Baso # (Auto) Cancelled 0.1 Abs Immat Gran (auto) Cancelled 0.35 H Absolute Neuts (auto) Cancelled 22.1 H Absolute Nucleated RBC Cancelled 0.000 Nucleated RBC % (auto) Cancelled 0.0 Smear Tech's Comments VERIFIED PT INR APTT Anion Gap Estim Creat Clear Calc Estimated GFR Random Glucose Lactic Acid 0.9 Calcium Magnesium Total Bilirubin AST ALT Alkaline Phosphatase Troponin I High Sens Total Protein Albumin Salicylates Urine Opiates Screen Urine Fentanyl Screen Acetaminophen Ur Barbiturates Screen Ur Phencyclidine Scrn Ur Amphetamines Screen U Benzodiazepines Scrn Urine Cocaine Screen U Marijuana (THC) Screen Ethyl Alcohol COVID-19 ([facility]) [employer] 10/07/21 10/08/21 10/08/21 23:44 02:02 03:02 MCV MCH MCHC RDW Plt Count MPV Immature Gran % (Auto) Neut % (Auto) Lymph % (Auto) [place] % (Auto) Eos % (Auto) Baso % (Auto) Lymph # (Auto) [place] # (Auto) Eos # (Auto) Baso # (Auto) Abs Immat Gran (auto) Absolute Neuts (auto) Absolute Nucleated RBC Nucleated RBC % (auto) Smear Tech's Comments PT 22.8 H INR 2.0 H APTT 39.9 H Anion Gap Estim Creat Clear Calc Estimated GFR Random Glucose Lactic Acid Calcium Magnesium Total Bilirubin AST ALT Alkaline Phosphatase Troponin I High Sens 22.6 Total Protein Albumin Salicylates Urine Opiates Screen POSITIVE H Urine Fentanyl Screen POSITIVE H Acetaminophen Ur Barbiturates Screen Not Detected Ur Phencyclidine Scrn Not Detected Ur Amphetamines Screen Not Detected U Benzodiazepines Scrn Not Detected Urine Cocaine Screen POSITIVE H U Marijuana (THC) Screen Not Detected Ethyl Alcohol COVID-19 ([facility]) [employer] Imaging Radiologist's Impressions: Impressions Chest X-Ray 10/07/21 20:14 IMPRESSION: No acute cardiopulmonary findings. Head CT 10/08/21 01:20 IMPRESSION: No acute intracranial pathology. Abdomen/Pelvis CT 10/08/21 01:37 IMPRESSION: 1. No acute pulmonary embolism. 2. Continued improvement of lung opacities when compared to the prior study. The largest opacity that remains is seen at the medial left lower lobe. 3. Persistent hilar adenopathy which is likely reactive. 4. Hepatic steatosis with hepatomegaly. Small volume ascites appears slightly increased from prior. VTE: negative Chest CTA 10/08/21 01:37 IMPRESSION: 1. No acute pulmonary embolism. 2. Continued improvement of lung opacities when compared to the prior study. The largest opacity that remains is seen at the medial left lower lobe. 3. Persistent hilar adenopathy which is likely reactive. 4. Hepatic steatosis with hepatomegaly. Small volume ascites appears slightly increased from prior. VTE: negative Assessment and Plan 30-year-old male with a past medical history of IV drug abuse, directed to the lower replacement, recurrent endocarditis, hepatitis-C, history of pulmonary embolism-noncompliant with Xarelto; recent admission to the hospital for endocarditis/streptococcal bacteremia; left AMA on 09/17/21-interrupted antibiotic therapy; has been abusing drugs-cocaine and heroin; presented today to the hospital with a chief complaint of altered mental status. Noted to have following conditions Altered mental status: CT head showed no acute intracranial process. Patient moves all extremities equally. Toxic metabolic encephalopathy in the setting of substance abuse/recent bacteremia. Patient is currently drowsy/sleepy likely under the influence of heroin use. Noted pinpoint pupils. Response to verbal commands but falls back to sleep. Will obtain urine toxicology Opiate abuse/cocaine abuse: Monitor on COWS protocol. Addiction Medicine consult. Clonidine p.r.n. with holding parameters. History of recurrent endocarditis/ Streptococcal bacteremia: Patient was on ceftriaxone 2 g Q 24 hours-was supposed to be finishing 6 weeks course ending on 10/19/2021; But the patient interrupted therapy on 09/17/21; Patient continued use IV drug abuse after he left AMA on 09/17/2021-> for now will give the patient on broad-spectrum IV antibiotics-vancomycin and Zosyn. Id consult for further recommendations. History of pulmonary embolism: Will resume the patient on Xarelto. Patient has multiple admissions with the above conditions; patient making poor choices even after multiple reinforcements by multiple physicians. Overall poor prognosis. Case management and social organization professor follow-up. would benefit a multidisciplinary approach. DVT prophylaxis: Patient on Xarelto Code status: Full code Quality Stroke Does the patient have a stroke diagnosis?: No VTE Prior VTE?: No VTE Risk Level:: Medical - moderate - high VTE Device Contraindication: Treatment Not Indicated VTE Drug Contraindication: N/A - Med Ordered
[2021-10-08] MEDS: 0.9 % Sodium Chloride 1,000 ML 100 ML IVCONT ×2 (04:37→15:16)
[2021-10-08 06:23] LABS: Appearance Urine CLEAR; Color Urine YELLOW; Glucose Urine UA NEG (NEG); Leukocyte Esterase Urine NEG (NEG); Nitrite Urine NEG (NEG); Urine Blood 3+ (NEG); Urine Ketones NEG (NEG); Urine Protein 1+ MG/DL (NEG-TRACE)
[2021-10-08 06:37] LABS: Bacteria Urine 1+ /LPF; Squamous Epithelial Cell Urine 1+ /LPF
--- NOTE | 2021-10-08 07:26 | PHA.PROG ---
Admission Date/Time: October 08, 2021 03:50 Indication: Hx of endocarditis/bacetermia, IVDU Weight in k.1 kg Adjusted body weight in K.72 kg [place] body weight in K.8 kg Obesity Dosing Indication % IBW: N/A Serum Creatinine - Last 168 Hours 10/07/21 20:39 Creatinine 1.19 Estimated CrCl and GFR - Last 168 Hours 10/07/21 20:39 Estim Creat Clear Calc 80.4 Estimated GFR > 60 Vancomycin Loading Dose: N/A - 750 mg (11mg/kg) dose given in the ED on 10/08 @ [id number] Current Vancomycin Dosing Regimen: 1000 mg q12h Date and Time for next Vancomycin Level to be drawn: 10/09 @ 1030 Pharmacist Comments on Vancomycin Plan: Vancomycin 1000 mg Q12H maintenance dose to be started on 10/08 @ 1030. Expected AUC 581 with a trough of 18.3. Trough to be drawn prior to 4th dose Per george patient was refusing AM labs. Will follow up on SCr later today. Pharmacy will monitor renal function daily. Yany Donis PharmD Vancomycin dosing will take advantage of [employer] as a clinical decision support tool that uses Bayesian modeling to calculate individual patient's pharmacokinetic parameters and forecast the patient's drug concentration time course with the target goal AUC 24 range of 400 - 600 mg/L/hr.
--- NOTE | 2021-10-08 07:58 | PC.NURSE ---
refusing am blood work, resistant to vital signs. yelling at this rn i need a blanket im freezing, give me something to eat! pt educated about call pierce, reoriented to names of nursing staff, and about yelling out for attention in the er.
[2021-10-08] MEDS: vancomycin HCL 1,000 MG in 0.9 % Sodium Chloride 250 ML 270 MG IV (12:30)
[2021-10-08] MEDS: Rivaroxaban 20 MG TABLET PO (12:39)
--- NOTE | 2021-10-08 15:53 | HO.SUDE ---
Please see Addiction Medicine provider note.
[2021-10-08] MEDS: methADONE HCl 20 MG/2 ML ORAL.CONC PO (16:33)
--- NOTE | 2021-10-08 17:12 | HO.ADDICTCON ---
History of Present Illness Date of Service: 10/08/2021 Chief Complaint: AMS IVDA Bacteremia Reason for Consult: OUD Requesting physician: Shaggy Toribio Discussed with referring provider: Yes Sources of Information: patient interviewed and chart reviewed HPI Narrative: Patient is 30 year old male with OUD and recurrent endocarditis and untreated PE. Recently admitted to [facility] with endocarditis and left AMA. Patient well known to this headline writer via previous admissions. Fullsusbatnce history in last ACS note. Today patient challenging to engage, drowsy, but awakens to voice. Irritable when he is awake, but redirectable and able to answer some questions. Of note, this presentation is typical for patient each time he has been admitted--he is somewhat challenging to engage with at first. Patient had been on methadone titration prior to last visit and was doing well at in regards to sx management at that time. He requested methadone from this headline writer when seen earlier in the AM, though not ordered due to inability to stay awake (even when eating) and risk of respiratory depression. Did not appear to be experiencing any acute opioid withdrawal sx (other than groaning). Patient re-evaluated later in the afternoon and now appearing to be experiencing withdrawal sx. Nose running, reporting chills, observed to be restless and shivering, yawing. Still asleep mostly though and uncooperative with clinical care. Past Psychiatric History: Not reviewed Review of Systems Review of Systems Yes Unobtainable due to mental status (patient unwilling to engage ) Diagnostics Vital Signs (24Hr): Vital Signs - 24 hr 10/07/21 19:34 10/07/21 22:00 10/07/21 23:14 Temperature 98.0 F 99.7 F Pulse Rate 113 H 130 H 109 H Respiratory Rate 22 H 15 18 Blood Pressure 128/85 118/66 105/55 L Pulse Oximetry 96 96 94 10/08/21 00:00 10/08/21 00:25 10/08/21 02:00 Temperature Pulse Rate 115 H 87 90 Respiratory Rate 18 19 24 H Blood Pressure 105/62 95/67 99/66 Pulse Oximetry 94 94 94 10/08/21 02:51 10/08/21 03:50 10/08/21 05:40 Temperature 99 F Pulse Rate 87 89 85 Respiratory Rate 23 H 19 21 H Blood Pressure 99/66 103/62 101/65 Pulse Oximetry 96 96 96 BMI result Body Mass Index 23.5 Labs Results: 10/07/21 23:44 10/07/21 20:39 Labs: Laboratory Results - last 48 hr 10/07/21 10/07/21 10/07/21 20:32 20:39 20:39 WBC RBC Hgb Hct MCV MCH MCHC RDW Plt Count MPV Immature Gran % (Auto) Neut % (Auto) Lymph % (Auto) [place] % (Auto) Eos % (Auto) Baso % (Auto) Lymph # (Auto) [place] # (Auto) Eos # (Auto) Baso # (Auto) Abs Immat Gran (auto) Absolute Neuts (auto) Absolute Nucleated RBC Nucleated RBC % (auto) Smear Tech's Comments PT INR APTT Sodium 135 Potassium 4.1 Chloride 108 Carbon Dioxide 17 L Anion Gap 14 BUN 23 H Creatinine 1.19 Estim Creat Clear Calc 80.4 Estimated GFR > 60 Random Glucose 103 Lactic Acid Calcium 8.3 L D Magnesium 1.6 Total Bilirubin 1.4 H AST 25 D ALT 21 Alkaline Phosphatase 282 H D Troponin I High Sens Total Protein 6.7 Albumin 3.0 L Urine Color Urine Appearance Urine pH Ur Specific [place] Urine Protein Urine Glucose (UA) Urine Ketones Urine Blood Urine Nitrite Ur Leukocyte Esterase Urine RBC Urine WBC Ur Squamous Epith Cells Urine Bacteria Salicylates < 5.0 L Urine Opiates Screen Urine Fentanyl Screen Acetaminophen < 1 Ur Barbiturates Screen Ur Phencyclidine Scrn Ur Amphetamines Screen U Benzodiazepines Scrn Urine Cocaine Screen U Marijuana (THC) Screen Ethyl Alcohol < 10 COVID-19 ([facility]) Negative COVID-19 Clin Com See Note 10/07/21 10/07/21 10/07/21 23:44 23:44 23:44 WBC Cancelled 26.2 H RBC Cancelled 4.22 L Hgb Cancelled 10.7 L Hct Cancelled 32.2 L MCV Cancelled 76.3 L MCH Cancelled 25.4 L MCHC Cancelled 33.2 RDW Cancelled 17.4 H Plt Count Cancelled 130 L D MPV Cancelled 11.3 Immature Gran % (Auto) Cancelled 1.3 H Neut % (Auto) Cancelled 84.2 H Lymph % (Auto) Cancelled 7.6 L [place] % (Auto) Cancelled 6.7 Eos % (Auto) Cancelled 0.0 Baso % (Auto) Cancelled 0.2 Lymph # (Auto) Cancelled 2.0 [place] # (Auto) Cancelled 1.8 H Eos # (Auto) Cancelled 0.0 Baso # (Auto) Cancelled 0.1 Abs Immat Gran (auto) Cancelled 0.35 H Absolute Neuts (auto) Cancelled 22.1 H Absolute Nucleated RBC Cancelled 0.000 Nucleated RBC % (auto) Cancelled 0.0 Smear Tech's Comments VERIFIED PT INR APTT Sodium Potassium Chloride Carbon Dioxide Anion Gap BUN Creatinine Estim Creat Clear Calc Estimated GFR Random Glucose Lactic Acid 0.9 Calcium Magnesium Total Bilirubin AST ALT Alkaline Phosphatase Troponin I High Sens Total Protein Albumin Urine Color Urine Appearance Urine pH Ur Specific [place] Urine Protein Urine Glucose (UA) Urine Ketones Urine Blood Urine Nitrite Ur Leukocyte Esterase Urine RBC Urine WBC Ur Squamous Epith Cells Urine Bacteria Salicylates Urine Opiates Screen Urine Fentanyl Screen Acetaminophen Ur Barbiturates Screen Ur Phencyclidine Scrn Ur Amphetamines Screen U Benzodiazepines Scrn Urine Cocaine Screen U Marijuana (THC) Screen Ethyl Alcohol COVID-19 ([facility]) COVID-19 Clin Com 10/07/21 10/08/21 10/08/21 23:44 02:02 03:02 WBC RBC Hgb Hct MCV MCH MCHC RDW Plt Count MPV Immature Gran % (Auto) Neut % (Auto) Lymph % (Auto) [place] % (Auto) Eos % (Auto) Baso % (Auto) Lymph # (Auto) [place] # (Auto) Eos # (Auto) Baso # (Auto) Abs Immat Gran (auto) Absolute Neuts (auto) Absolute Nucleated RBC Nucleated RBC % (auto) Smear Tech's Comments PT 22.8 H INR 2.0 H APTT 39.9 H Sodium Potassium Chloride Carbon Dioxide Anion Gap BUN Creatinine Estim Creat Clear Calc Estimated GFR Random Glucose Lactic Acid Calcium Magnesium Total Bilirubin AST ALT Alkaline Phosphatase Troponin I High Sens 22.6 Total Protein Albumin Urine Color Urine Appearance Urine pH Ur Specific [place] Urine Protein Urine Glucose (UA) Urine Ketones Urine Blood Urine Nitrite Ur Leukocyte Esterase Urine RBC Urine WBC Ur Squamous Epith Cells Urine Bacteria Salicylates Urine Opiates Screen POSITIVE H Urine Fentanyl Screen POSITIVE H Acetaminophen Ur Barbiturates Screen Not Detected Ur Phencyclidine Scrn Not Detected Ur Amphetamines Screen Not Detected U Benzodiazepines Scrn Not Detected Urine Cocaine Screen POSITIVE H U Marijuana (THC) Screen Not Detected Ethyl Alcohol COVID-19 ([facility]) COVID-19 Clin Com 10/08/21 03:02 WBC RBC Hgb Hct MCV MCH MCHC RDW Plt Count MPV Immature Gran % (Auto) Neut % (Auto) Lymph % (Auto) [place] % (Auto) Eos % (Auto) Baso % (Auto) Lymph # (Auto) [place] # (Auto) Eos # (Auto) Baso # (Auto) Abs Immat Gran (auto) Absolute Neuts (auto) Absolute Nucleated RBC Nucleated RBC % (auto) Smear Tech's Comments PT INR APTT Sodium Potassium Chloride Carbon Dioxide Anion Gap BUN Creatinine Estim Creat Clear Calc Estimated GFR Random Glucose Lactic Acid Calcium Magnesium Total Bilirubin AST ALT Alkaline Phosphatase Troponin I High Sens Total Protein Albumin Urine Color YELLOW Urine Appearance CLEAR Urine pH 6.0 Ur Specific [place] 1.020 Urine Protein 1+ H Urine Glucose (UA) NEG Urine Ketones NEG Urine Blood 3+ H Urine Nitrite NEG Ur Leukocyte Esterase NEG Urine RBC 1-4 Urine WBC 1-4 Ur Squamous Epith Cells 1+ Urine Bacteria 1+ Salicylates Urine Opiates Screen Urine Fentanyl Screen Acetaminophen Ur Barbiturates Screen Ur Phencyclidine Scrn Ur Amphetamines Screen U Benzodiazepines Scrn Urine Cocaine Screen U Marijuana (THC) Screen Ethyl Alcohol COVID-19 ([facility]) COVID-19 Clin Com Imaging Radiology Impressions: ITS Impressions Chest X-Ray 10/07/21 20:14 IMPRESSION: No acute cardiopulmonary findings. Head CT 10/08/21 01:20 IMPRESSION: No acute intracranial pathology. Abdomen/Pelvis CT 10/08/21 01:37 IMPRESSION: 1. No acute pulmonary embolism. 2. Continued improvement of lung opacities when compared to the prior study. The largest opacity that remains is seen at the medial left lower lobe. 3. Persistent hilar adenopathy which is likely reactive. 4. Hepatic steatosis with hepatomegaly. Small volume ascites appears slightly increased from prior. VTE: negative Chest CTA 10/08/21 01:37 IMPRESSION: 1. No acute pulmonary embolism. 2. Continued improvement of lung opacities when compared to the prior study. The largest opacity that remains is seen at the medial left lower lobe. 3. Persistent hilar adenopathy which is likely reactive. 4. Hepatic steatosis with hepatomegaly. Small volume ascites appears slightly increased from prior. VTE: negative Mental Status Exam Mental Status Exam Patient Appearance: Disheveled and Unkempt Level of Consciousness: Drowsy Patient Behavior: Uncooperative Mood Description: Hostile Affect Description: Hostile (but redirectable ) Judgement: Fair Medications Medications Current Medications Acetaminophen (Acetaminophen 325 Mg Tablet) 650 mg PO Q6H PRN PRN Reason: Pain, Mild (Pain Scale 1-3) Clonidine HCl (Clonidine Hcl 0.1 Mg Tablet) 0.1 mg PO TID PRN; Protocol PRN Reason: anxiety/restlessness Sodium Chloride (Ns) 1,000 mls @ 100 mls/hr IVCONT .Q10H [facility] Last Admin: 10/08/21 15:16 Dose: 100 mls/hr Documented by: Piperacillin Sod/Tazobactam (Sod 3.375 gm/ Sodium Chloride) 50 mls @ 100 mls/hr IV Q6H [facility] Last Infusion: 10/08/21 16:49 Dose: Infused Documented by: Vancomycin HCl 1,000 mg/ (Sodium Chloride) 270 mls @ 270 mls/hr IV Q12H [facility] Last Admin: 10/08/21 12:30 Dose: 270 mls/hr Documented by: Melatonin (Melatonin 3 Mg Tablet) 6 mg PO BEDTIME PRN PRN Reason: Insomnia Pharmacy Consult (Consult Rx Vancomycin Dosing) 1 each MISCELLANE DAILY PRN PRN Reason: Consult order Rivaroxaban (Rivaroxaban 20 Mg Tablet) 20 mg PO DAILY [facility] Last Admin: 10/08/21 12:39 Dose: 20 mg Documented by: Senna (Sennosides 8.6 Mg Tablet) 17.2 mg PO BEDTIME PRN PRN Reason: Constipation Sodium Chloride (0.9 % Sodium Chloride Flush 3 Ml Syringe) 3 ml IVFLUSH QSHIFT [facility] Last Admin: 10/08/21 15:11 Dose: Not Given Documented by: Allergies Allergies Allergy/AdvReac Type Severity Reaction Status Date / Time No Known Allergies Allergy Unverified 07/05/20 15:53 [No Known Allergies*] Assessment & Plan Assessment & Plan (1) Opioid use disorder: Status: Acute Code(s): F11.99 - Opioid use, unspecified with unspecified opioid-induced disorder Assessment and Plan: one time methadone 20mg ordered. Continue to monitor for over sedation--avoid additional sedating medications Will follow up in AM and order next dose then If for some reason patient is more awake and alert this evening and endorsing withdrawal sx, he can have an additional 5mg of methadone clonidine 0.1mg TID PRN to help with anxiety as well I spent __30____ minutes with the patient and/or on the patient floor today, greater than?50% of which was spent counseling/coordinating care. [facility] Past Medical History Medical History Anasarca Bacteremia Endocarditis HCV (hepatitis C virus) Pulmonary embolism Right heart failure Steatosis, liver Tricuspid valve stenosis Surgical History Surgical History History of tricuspid valve replacement with bioprosthetic valve Social History Social History Household Members: Other Household Members Other:: none. homeless Housing: Homeless Do you presently have visiting nurse or other home services: No Unable to assess alcohol history related to: Refusing to respond Alcohol intake: unknown Patient Tobacco Use Status: Current everyday Tobacco user Tobacco use type: Cigarette Use of substances other than those prescribed or required for medical reasons: Yes Substance Use Type: Heroin Substance Use Frequency: Chronic Longstanding Last Used Substance: Unknown Advance Directives: No Advance Directives Information Provided: No service: No Current occupational status: unemployed
--- NOTE | 2021-10-08 17:14 | MHC.CM.PN ---
CM attempted to meet with admitted patient with bed assignment pending. Pt sleeping with covers over his head. Pt not responding to name. Will attempt to interview when patient is awake. CM to follow for d/c needs.
--- NOTE | 2021-10-08 17:30 | PM.EVENT ---
Event Note Date of Service: 10/08/21 Event Note: chart reviewed patient examined. agree with H and P and plan as documented earlier. Exam essentially unchanged. Patient remains uncooperative to therapy
--- NOTE | 2021-10-08 23:01 | MHC.CM.PN ---
CM unable to meet with patient for CM interview. Pt either yelling or sleeping. Will not participate. Interview taken from medical record. Pt is homeless. No IMM necessary. No PCP on file. HCP on file. HCP/parent Brittany Dover ([phone]). Pt IVDA. Hx substance abuse/opioid abuse. Pt admitted to [facility] [place] on 09/12/21 with bacteremia. Signed out AMA. Need 6 weeks antibiotics. D/C plan unknown at this time. May need terminal superintendent antibiotic therapy, but unsure if pt will stay for treatment. CM will follow for d/c needs.
[2021-10-09] VITALS (7 sets, daily range): BP systolic 115–137; BP diastolic 78–89; PULSE 66–99; RESP 20–21; TEMP 36.2–36.7; O2SAT 94–97; BMI 23.5; BMI 24.0
[2021-10-09] MEDS: 0.9 % Sodium Chloride 1,000 ML 100 ML IVCONT ×3 (00:48→23:36)
[2021-10-09] MEDS: 0.9 % Sodium Chloride Flush 3 ML SYRINGE IVFLUSH ×2 (00:48→08:07)
[2021-10-09] MEDS: vancomycin HCL 1,000 MG in 0.9 % Sodium Chloride 250 ML 270 MG IV ×2 (00:52→16:49)
[2021-10-09] MEDS: Piperacillin Sodium/Tazobactam 3.375 GM in 0.9 % Sodium Chloride 50 ML IV ×2 (02:03→08:06)
[2021-10-09] MEDS: Rivaroxaban 20 MG TABLET PO (08:06)
--- NOTE | 2021-10-09 11:22 | P.CNID_ITS ---
History of Present Illness Data of Consult Service Date: 10/08/21 Requesting physician: Shaggy Toribio Primary Care Provider: Unknown Physician HPI Reason for consult: bacteremia He presents after being found altered on side of road He has h/o strep equis bacteremia and was hospitalized and left AMA on 09/17. He is angry hes in hospital Review of Systems Review of Systems: Yes all other systems are reviewed and are negative [facility] Past Medical History Medical History Anasarca Bacteremia Endocarditis HCV (hepatitis C virus) Pulmonary embolism Right heart failure Steatosis, liver Tricuspid valve stenosis Family History Family history: reviewed and not pertinent Surgical History Surgical History History of tricuspid valve replacement with bioprosthetic valve Social History Social History Household Members: Unknown / Unable to assess Household Members Other:: none. homeless Housing: Unknown / Unable to assess Do you presently have visiting nurse or other home services: No Unable to assess alcohol history related to: Refusing to respond Alcohol intake: unknown Patient Tobacco Use Status: Tobacco use Unknown Tobacco use type: Cigarette Substance Use Type: Heroin service: No Current occupational status: unemployed Meds Allergies Allergy/AdvReac Type Severity Reaction Status Date / Time No Known Allergies Allergy Unverified 07/05/20 15:53 [No Known Allergies*] Active Medications: Current Medications Acetaminophen (Acetaminophen 325 Mg Tablet) 650 mg PO Q6H PRN PRN Reason: Pain, Mild (Pain Scale 1-3) Clonidine HCl (Clonidine Hcl 0.1 Mg Tablet) 0.1 mg PO TID PRN; Protocol PRN Reason: anxiety/restlessness Sodium Chloride (Ns) 1,000 mls @ 100 mls/hr IVCONT .Q10H [facility] Last Admin: 10/09/21 00:48 Dose: 100 mls/hr Documented by: Vancomycin HCl 1,000 mg/ (Sodium Chloride) 270 mls @ 270 mls/hr IV Q12H [facility] Last Infusion: 10/09/21 01:57 Dose: Infused Documented by: Ceftriaxone Sodium 2 gm/ (Sodium Chloride) 50 mls @ 100 mls/hr IV Q24H [facility] Melatonin (Melatonin 3 Mg Tablet) 6 mg PO BEDTIME PRN PRN Reason: Insomnia Pharmacy Consult (Consult Rx Vancomycin Dosing) 1 each MISCELLANE DAILY PRN PRN Reason: Consult order Rivaroxaban (Rivaroxaban 20 Mg Tablet) 20 mg PO DAILY [facility] Last Admin: 10/09/21 08:06 Dose: 20 mg Documented by: Senna (Sennosides 8.6 Mg Tablet) 17.2 mg PO BEDTIME PRN PRN Reason: Constipation Sodium Chloride (0.9 % Sodium Chloride Flush 3 Ml Syringe) 3 ml IVFLUSH QSHIFT [facility] Last Admin: 10/09/21 08:07 Dose: 3 ml Documented by: Home Medications Medication Instructions Recorded Confirmed Last Taken Type No Known Home Meds 10/08/21 10/08/21 Unknown History Physical Exam Vital Signs: Vital Signs: Last Vital Signs Temp 97.6 F 10/09/21 08:00 Pulse 81 10/09/21 08:00 Resp 21 H 10/09/21 08:00 BP 126/89 10/09/21 08:00 Pulse Ox 97 10/09/21 08:00 BMI result Body Mass Index 24.0 Const: General: cooperative HENMT: Head: Yes normal to inspection Eyes: General: appearance normal, both eyes and all related structures Resp: Effort & Inspection: normal respiratory effort Cardio: Rate: regular rate Rhythm: regular rhythm GI: Palpation (GI): Soft to palpation and nontender Skin: General skin exam: no rashes or lesions noted Results Labs CBC & Chem 7: 10/07/21 23:44 10/07/21 20:39 Microbiology Microbiology Results: Microbiology 10/07/21 23:46 Blood - Venous Blood Culture - Preliminary Gram positive cocci 10/07/21 23:44 Blood - Venous Blood Culture - Preliminary Gram positive cocci Assessment and Plan (1) Endocarditis: Status: Acute (2) Opioid use disorder: Status: Acute (3) Bacteremia: Status: Acute He has endocarditis probably again He has bacteremia There is concern over recurrence or even MRSA with IVDU. Check echo. Ceftriaxone and Vancomycin until blood culture results back Check MRI brain evaluate abscesses
[2021-10-09] MEDS: cefTRIAXone sodium 2 GM in 0.9 % Sodium Chloride 50 ML IV (12:20)
[2021-10-09] MEDS: methADONE HCl 20 MG/2 ML ORAL.CONC 25 MG PO (13:07)
[2021-10-09 14:38] LABS: Basophils Percent Auto 0.3 % (0-2); Eosinophils Absolute Auto 0.1 X10*3/uL (0.0-0.4); Eosinophils Percent Auto 0.5 % (0-4); Hematocrit 37.9 % (42.0-52.0); Hemoglobin 12.1 g/dl (14.0-18.0); Imm Gran Abs Auto 0.21 X10*3/uL (0.00-0.03); Imm Gran Pct Auto 1.4 % (0.0-0.4); Lymphocytes Absolute Auto 2.3 X10*3/uL (1.2-4.9); Lymphocytes Percent Auto 15.2 % (20-40); MANUAL DIFF FLAG SCAN; Mean Corpuscular HGB Conc 31.9 g/dl (31.0-36.0); Mean Corpuscular Hemoglobin 24.6 pg (27.0-33.0); Mean Corpuscular Volume 77.2 fL (80.0-98.0); Monocytes Absolute Auto 1.2 X10*3/uL (0.1-1.2); Neutrophils Absolute Auto 11.3 x10*3/uL (2.0-8.3); Neutrophils Percent Auto 74.6 % (45-73); PLT CLUMP 1; Red Blood Count 4.91 X10*6/uL (4.60-5.80); Red Cell Distribution Width 18.4 % (11.0-16.0); SCAN SMEAR FLAG 1
[2021-10-09 14:51] LABS: Vancomycin Trough 11.1 mcg/mL (10.0-20.0)
[2021-10-09 14:52] LABS: Alanine Aminotransferase 14 U/L (0-40); Albumin Level 2.2 g/dL (3.5-5.0); Alkaline Phosphatase 213 U/L (39-117); Anion Gap 11 (12-20); Aspartate Amino Transferase 25 U/L (5-37); Bilirubin Total 1.1 mg/dL (0.0-1.0); Blood Urea Nitrogen 12 mg/dL (9-16); Calcium 7.9 mg/dL (8.4-10.2); Carbon Dioxide 17 mmol/L (22-29); Chloride 114 mmol/L (96-108); Creatinine Clr Calc Pharmacy 107.5; Estimated Glomerular Filt Rate > 60; Glucose Fasting 111 mg/dL (60-99); Potassium 4.3 mmol/L (3.3-5.1); Sodium 138 mmol/L (135-145); Total Protein 5.5 g/dL (6.5-8.0)
[2021-10-09 14:55] LABS: Platelet Count 151 X10*3/uL (160-400); White Blood Count 15.1 X10*3/uL (4.8-10.8)
[2021-10-09 14:56] LABS: SLIDE REVIEW VERIFIED
--- NOTE | 2021-10-09 15:43 | HO.PM.IMPN ---
Subjective Subjective Date of Service: 10/09/21 Interval History: remains somnolent but arousable. Easily irritated Review of Systems denies chest pain Denies shortness of breath Denies nausea vomiting diarrhea Physical Exam Vital Signs: Vital Signs: Last Vital Signs Temp 98.0 F 10/09/21 15:33 Pulse 66 10/09/21 15:33 Resp 20 10/09/21 15:33 BP 137/80 10/09/21 15:33 Pulse Ox 96 10/09/21 15:33 BMI result Body Mass Index 24.0 Const: Other: somnolent but arousable no acute distress HENMT: Other: oropharynx clear; membranes moist Resp: Other: clear to auscultation bilaterally no rales rhonchi wheezes Cardio: Other: no S4; positive S1-S2; no S3 murmurs of scalp GI: Other: soft nontender nondistended normoactive bowel sounds Neuro: Other: cranial nerves 2-12 grossly intact as tested. Motor is 5/5 all extremities sensation intact. Cognition appropriate Extrem: Other: no edema bilaterally Objective Data Active Medications Acetaminophen (Acetaminophen 325 Mg Tablet) 650 mg PO Q6H PRN PRN Reason: Pain, Mild (Pain Scale 1-3) Clonidine HCl (Clonidine Hcl 0.1 Mg Tablet) 0.1 mg PO TID PRN; Protocol PRN Reason: anxiety/restlessness Sodium Chloride (Ns) 1,000 mls @ 100 mls/hr IVCONT .Q10H [facility] Last Admin: 10/09/21 15:01 Dose: 100 mls/hr Documented by: CHRIS Ceftriaxone Sodium 2 gm/ (Sodium Chloride) 50 mls @ 100 mls/hr IV Q24H [facility] Last Infusion: 10/09/21 15:33 Dose: 0 mls/hr Documented by: CHRIS Vancomycin HCl 1,000 mg/ (Sodium Chloride) 270 mls @ 270 mls/hr IV Q12H [facility] Melatonin (Melatonin 3 Mg Tablet) 6 mg PO BEDTIME PRN PRN Reason: Insomnia Pharmacy Consult (Consult Rx Vancomycin Dosing) 1 each MISCELLANE DAILY PRN PRN Reason: Consult order Rivaroxaban (Rivaroxaban 20 Mg Tablet) 20 mg PO DAILY [facility] Last Admin: 10/09/21 08:06 Dose: 20 mg Documented by: CHRIS Senna (Sennosides 8.6 Mg Tablet) 17.2 mg PO BEDTIME PRN PRN Reason: Constipation Sodium Chloride (0.9 % Sodium Chloride Flush 3 Ml Syringe) 3 ml IVFLUSH QSHIFT [facility] Last Admin: 10/09/21 08:07 Dose: 3 ml Documented by: CHRIS Labs CBC & Chem 7: 10/09/21 14:25 10/09/21 14:25 Labs: Laboratory Results - last 24 hr 10/09/21 10/09/21 10/09/21 14:25 14:25 14:25 MCV 77.2 L MCH 24.6 L MCHC 31.9 RDW 18.4 H Plt Count 151 L MPV Not Reportable Immature Gran % (Auto) 1.4 H Neut % (Auto) 74.6 H Lymph % (Auto) 15.2 L [place] % (Auto) 8.0 Eos % (Auto) 0.5 Baso % (Auto) 0.3 Lymph # (Auto) 2.3 [place] # (Auto) 1.2 Eos # (Auto) 0.1 Baso # (Auto) 0.0 Abs Immat Gran (auto) 0.21 H Absolute Neuts (auto) 11.3 H Absolute Nucleated RBC 0.000 Nucleated RBC % (auto) 0.0 Smear Tech's Comments VERIFIED Anion Gap 11 L Estim Creat Clear Calc 107.5 Estimated GFR > 60 Fasting Glucose 111 H D Calcium 7.9 L Total Bilirubin 1.1 H AST 25 ALT 14 Alkaline Phosphatase 213 H D Total Protein 5.5 L Albumin 2.2 L D Vancomycin Trough 11.1 Microbiology Microbiology Results: Microbiology 10/07/21 23:46 Blood Culture - Preliminary Blood - Venous Gram positive cocci 10/07/21 23:44 Blood Culture - Preliminary Blood - Venous Gram positive cocci Assessment and Plan (1) Opioid use disorder: Status: Acute (2) Tricuspid valve stenosis: Status: Acute (3) Leukocytosis: Status: Acute (4) Bacteremia: Status: Acute Assessment and Plan: 30-year-old male with a past medical history of IV drug abuse, directed to the lower replacement, recurrent endocarditis, hepatitis-C, history of pulmonary embolism-noncompliant with Xarelto; recent admission to the hospital for endocarditis/streptococcal bacteremia; left AMA on 09/17/21-interrupted antibiotic therapy; has been abusing drugs-cocaine and heroin; presented today to the hospital with a chief complaint of altered mental status. Blood cultures x2 drawn in the ER are now growing Gram-positive cocci 1. Gram-positive bacteremia Continue Vanco/CTX as per ID Discussed PIC with pt in backdrop of staunch non-complaint...Await ID of organisms. Will check echo to r/out vegetation MRI w/wo contrast to r/out abcess 2. PSA Seen by Care Team....dosing methaqdone while in house 3. Endocarditis(partially treated) Continue Vanco/CTX pending cultures Lovenox/Full code Quality Stroke Does the patient have a stroke diagnosis?: No VTE Prior VTE?: No VTE Risk Level:: Medical - moderate - high VTE Device Contraindication: Treatment Not Indicated VTE Drug Contraindication: N/A - Med Ordered
--- NOTE | 2021-10-09 17:41 | P.PNADD_ITS ---
Subjective Subjective Date of Service: 10/09/21 Reason For Visit: AMS IVDA Bacteremia Interim History: Still sleeping most of the evening and morning Groaning when this sports writer attempted to wake him--unable to engage in any form of discussion Unable to assess sx. Based on the tray in his room it appears he has been eating some Did not require additional methadone overnight Review of Systems Acute medical concerns: Yes Medical Review of Systems: unchanged (unable to assess) Mental Status Exam Mental Status Exam Narrative: Asleep, appearing more comfortable than yesterday Diagnostics Vital Signs (24Hr): Vital Signs - 24 hr 10/08/21 22:32 10/09/21 00:00 10/09/21 03:50 Temperature 97.4 F 97.1 F Pulse Rate 104 H 84 82 Respiratory Rate 20 20 20 Blood Pressure 122/77 115/80 115/78 Pulse Oximetry 95 94 10/09/21 08:00 10/09/21 11:42 10/09/21 15:33 Temperature 97.6 F 97.2 F 98.0 F Pulse Rate 81 90 66 Respiratory Rate 21 H 20 20 Blood Pressure 126/89 120/78 137/80 Pulse Oximetry 97 95 96 BMI result Body Mass Index 24.0 Labs Results: 10/09/21 14:25 10/09/21 14:25 Labs: Laboratory Results - last 48 hr 10/07/21 10/07/21 10/07/21 20:32 20:39 20:39 WBC RBC Hgb Hct MCV MCH MCHC RDW Plt Count MPV Immature Gran % (Auto) Neut % (Auto) Lymph % (Auto) [place] % (Auto) Eos % (Auto) Baso % (Auto) Lymph # (Auto) [place] # (Auto) Eos # (Auto) Baso # (Auto) Abs Immat Gran (auto) Absolute Neuts (auto) Absolute Nucleated RBC Nucleated RBC % (auto) Smear Tech's Comments PT INR APTT Sodium 135 Potassium 4.1 Chloride 108 Carbon Dioxide 17 L Anion Gap 14 BUN 23 H Creatinine 1.19 Estim Creat Clear Calc 80.4 Estimated GFR > 60 Random Glucose 103 Fasting Glucose Lactic Acid Calcium 8.3 L D Magnesium 1.6 Total Bilirubin 1.4 H AST 25 D ALT 21 Alkaline Phosphatase 282 H D Troponin I High Sens Total Protein 6.7 Albumin 3.0 L Urine Color Urine Appearance Urine pH Ur Specific [place] Urine Protein Urine Glucose (UA) Urine Ketones Urine Blood Urine Nitrite Ur Leukocyte Esterase Urine RBC Urine WBC Ur Squamous Epith Cells Urine Bacteria Vancomycin Trough Salicylates < 5.0 L Urine Opiates Screen Urine Fentanyl Screen Acetaminophen < 1 Ur Barbiturates Screen Ur Phencyclidine Scrn Ur Amphetamines Screen U Benzodiazepines Scrn Urine Cocaine Screen U Marijuana (THC) Screen Ethyl Alcohol < 10 COVID-19 ([facility]) Negative COVID-19 Clin Com See Note 10/07/21 10/07/21 10/07/21 23:44 23:44 23:44 WBC Cancelled 26.2 H RBC Cancelled 4.22 L Hgb Cancelled 10.7 L Hct Cancelled 32.2 L MCV Cancelled 76.3 L MCH Cancelled 25.4 L MCHC Cancelled 33.2 RDW Cancelled 17.4 H Plt Count Cancelled 130 L D MPV Cancelled 11.3 Immature Gran % (Auto) Cancelled 1.3 H Neut % (Auto) Cancelled 84.2 H Lymph % (Auto) Cancelled 7.6 L [place] % (Auto) Cancelled 6.7 Eos % (Auto) Cancelled 0.0 Baso % (Auto) Cancelled 0.2 Lymph # (Auto) Cancelled 2.0 [place] # (Auto) Cancelled 1.8 H Eos # (Auto) Cancelled 0.0 Baso # (Auto) Cancelled 0.1 Abs Immat Gran (auto) Cancelled 0.35 H Absolute Neuts (auto) Cancelled 22.1 H Absolute Nucleated RBC Cancelled 0.000 Nucleated RBC % (auto) Cancelled 0.0 Smear Tech's Comments VERIFIED PT INR APTT Sodium Potassium Chloride Carbon Dioxide Anion Gap BUN Creatinine Estim Creat Clear Calc Estimated GFR Random Glucose Fasting Glucose Lactic Acid 0.9 Calcium Magnesium Total Bilirubin AST ALT Alkaline Phosphatase Troponin I High Sens Total Protein Albumin Urine Color Urine Appearance Urine pH Ur Specific [place] Urine Protein Urine Glucose (UA) Urine Ketones Urine Blood Urine Nitrite Ur Leukocyte Esterase Urine RBC Urine WBC Ur Squamous Epith Cells Urine Bacteria Vancomycin Trough Salicylates Urine Opiates Screen Urine Fentanyl Screen Acetaminophen Ur Barbiturates Screen Ur Phencyclidine Scrn Ur Amphetamines Screen U Benzodiazepines Scrn Urine Cocaine Screen U Marijuana (THC) Screen Ethyl Alcohol COVID-19 ([facility]) COVID-19 Clin Com 10/07/21 10/08/21 10/08/21 23:44 02:02 03:02 WBC RBC Hgb Hct MCV MCH MCHC RDW Plt Count MPV Immature Gran % (Auto) Neut % (Auto) Lymph % (Auto) [place] % (Auto) Eos % (Auto) Baso % (Auto) Lymph # (Auto) [place] # (Auto) Eos # (Auto) Baso # (Auto) Abs Immat Gran (auto) Absolute Neuts (auto) Absolute Nucleated RBC Nucleated RBC % (auto) Smear Tech's Comments PT 22.8 H INR 2.0 H APTT 39.9 H Sodium Potassium Chloride Carbon Dioxide Anion Gap BUN Creatinine Estim Creat Clear Calc Estimated GFR Random Glucose Fasting Glucose Lactic Acid Calcium Magnesium Total Bilirubin AST ALT Alkaline Phosphatase Troponin I High Sens 22.6 Total Protein Albumin Urine Color Urine Appearance Urine pH Ur Specific [place] Urine Protein Urine Glucose (UA) Urine Ketones Urine Blood Urine Nitrite Ur Leukocyte Esterase Urine RBC Urine WBC Ur Squamous Epith Cells Urine Bacteria Vancomycin Trough Salicylates Urine Opiates Screen POSITIVE H Urine Fentanyl Screen POSITIVE H Acetaminophen Ur Barbiturates Screen Not Detected Ur Phencyclidine Scrn Not Detected Ur Amphetamines Screen Not Detected U Benzodiazepines Scrn Not Detected Urine Cocaine Screen POSITIVE H U Marijuana (THC) Screen Not Detected Ethyl Alcohol COVID-19 ([facility]) COVID-19 Clin Com 10/08/21 10/09/21 10/09/21 03:02 14:25 14:25 WBC 15.1 H RBC 4.91 Hgb 12.1 L Hct 37.9 L MCV 77.2 L MCH 24.6 L MCHC 31.9 RDW 18.4 H Plt Count 151 L MPV Not Reportable Immature Gran % (Auto) 1.4 H Neut % (Auto) 74.6 H Lymph % (Auto) 15.2 L [place] % (Auto) 8.0 Eos % (Auto) 0.5 Baso % (Auto) 0.3 Lymph # (Auto) 2.3 [place] # (Auto) 1.2 Eos # (Auto) 0.1 Baso # (Auto) 0.0 Abs Immat Gran (auto) 0.21 H Absolute Neuts (auto) 11.3 H Absolute Nucleated RBC 0.000 Nucleated RBC % (auto) 0.0 Smear Tech's Comments VERIFIED PT INR APTT Sodium 138 Potassium 4.3 Chloride 114 H Carbon Dioxide 17 L Anion Gap 11 L BUN 12 Creatinine 0.89 Estim Creat Clear Calc 107.5 Estimated GFR > 60 Random Glucose Fasting Glucose 111 H D Lactic Acid Calcium 7.9 L Magnesium Total Bilirubin 1.1 H AST 25 ALT 14 Alkaline Phosphatase 213 H D Troponin I High Sens Total Protein 5.5 L Albumin 2.2 L D Urine Color YELLOW Urine Appearance CLEAR Urine pH 6.0 Ur Specific [place] 1.020 Urine Protein 1+ H Urine Glucose (UA) NEG Urine Ketones NEG Urine Blood 3+ H Urine Nitrite NEG Ur Leukocyte Esterase NEG Urine RBC 1-4 Urine WBC 1-4 Ur Squamous Epith Cells 1+ Urine Bacteria 1+ Vancomycin Trough Salicylates Urine Opiates Screen Urine Fentanyl Screen Acetaminophen Ur Barbiturates Screen Ur Phencyclidine Scrn Ur Amphetamines Screen U Benzodiazepines Scrn Urine Cocaine Screen U Marijuana (THC) Screen Ethyl Alcohol COVID-19 ([facility]) COVID-19 [employer] Com 10/09/21 14:25 WBC RBC Hgb Hct MCV MCH MCHC RDW Plt Count MPV Immature Gran % (Auto) Neut % (Auto) Lymph % (Auto) [place] % (Auto) Eos % (Auto) Baso % (Auto) Lymph # (Auto) [place] # (Auto) Eos # (Auto) Baso # (Auto) Abs Immat Gran (auto) Absolute Neuts (auto) Absolute Nucleated RBC Nucleated RBC % (auto) Smear Tech's Comments PT INR APTT Sodium Potassium Chloride Carbon Dioxide Anion Gap BUN Creatinine Estim Creat Clear Calc Estimated GFR Random Glucose Fasting Glucose Lactic Acid Calcium Magnesium Total Bilirubin AST ALT Alkaline Phosphatase Troponin I High Sens Total Protein Albumin Urine Color Urine Appearance Urine pH Ur Specific [place] Urine Protein Urine Glucose (UA) Urine Ketones Urine Blood Urine Nitrite Ur Leukocyte Esterase Urine RBC Urine WBC Ur Squamous Epith Cells Urine Bacteria Vancomycin Trough 11.1 Salicylates Urine Opiates Screen Urine Fentanyl Screen Acetaminophen Ur Barbiturates Screen Ur Phencyclidine Scrn Ur Amphetamines Screen U Benzodiazepines Scrn Urine Cocaine Screen U Marijuana (THC) Screen Ethyl Alcohol COVID-19 ([facility]) COVID-19 Clin Com Imaging Radiology Impressions: ITS Impressions Chest X-Ray 10/07/21 20:14 IMPRESSION: No acute cardiopulmonary findings. Head CT 10/08/21 01:20 IMPRESSION: No acute intracranial pathology. Abdomen/Pelvis CT 10/08/21 01:37 IMPRESSION: 1. No acute pulmonary embolism. 2. Continued improvement of lung opacities when compared to the prior study. The largest opacity that remains is seen at the medial left lower lobe. 3. Persistent hilar adenopathy which is likely reactive. 4. Hepatic steatosis with hepatomegaly. Small volume ascites appears slightly increased from prior. VTE: negative Chest CTA 10/08/21 01:37 IMPRESSION: 1. No acute pulmonary embolism. 2. Continued improvement of lung opacities when compared to the prior study. The largest opacity that remains is seen at the medial left lower lobe. 3. Persistent hilar adenopathy which is likely reactive. 4. Hepatic steatosis with hepatomegaly. Small volume ascites appears slightly increased from prior. VTE: negative Medications Medications Current Medications Acetaminophen (Acetaminophen 325 Mg Tablet) 650 mg PO Q6H PRN PRN Reason: Pain, Mild (Pain Scale 1-3) Clonidine HCl (Clonidine Hcl 0.1 Mg Tablet) 0.1 mg PO TID PRN; Protocol PRN Reason: anxiety/restlessness Sodium Chloride (Ns) 1,000 mls @ 100 mls/hr IVCONT .Q10H [facility] Last Admin: 10/09/21 15:01 Dose: 100 mls/hr Documented by: Ceftriaxone Sodium 2 gm/ (Sodium Chloride) 50 mls @ 100 mls/hr IV Q24H [facility] Last Infusion: 10/09/21 15:33 Dose: Infused Documented by: Vancomycin HCl 1,000 mg/ (Sodium Chloride) 270 mls @ 270 mls/hr IV Q12H [facility] Last Admin: 10/09/21 16:49 Dose: 270 mls/hr Documented by: Melatonin (Melatonin 3 Mg Tablet) 6 mg PO BEDTIME PRN PRN Reason: Insomnia Pharmacy Consult (Consult Rx Vancomycin Dosing) 1 each MISCELLANE DAILY PRN PRN Reason: Consult order Rivaroxaban (Rivaroxaban 20 Mg Tablet) 20 mg PO DAILY [facility] Last Admin: 10/09/21 08:06 Dose: 20 mg Documented by: Senna (Sennosides 8.6 Mg Tablet) 17.2 mg PO BEDTIME PRN PRN Reason: Constipation Sodium Chloride (0.9 % Sodium Chloride Flush 3 Ml Syringe) 3 ml IVFLUSH QSHIFT [facility] Last Admin: 10/09/21 08:07 Dose: 3 ml Documented by: Allergies Allergies Allergy/AdvReac Type Severity Reaction Status Date / Time No Known Allergies Allergy Unverified 07/05/20 15:53 [No Known Allergies*] Assessment & Plan Assessment & Plan (1) Opioid use disorder: Status: Acute Code(s): F11.99 - Opioid use, unspecified with unspecified opioid-induced disorder Assessment and Plan: * methadone 25mg today * continue 25mg tomorrow and re-eval for possible dose increase * Discussed with attending I spent _15 minutes with the patient and/or on the patient floor today, greater than?50% of which was spent counseling/coordinating care.
--- NOTE | 2021-10-10 | ECG_ITS ---
Test Reason : METHADONE TITRATION Blood Pressure : / mmHG Vent. Rate : 090 BPM Atrial Rate : 090 BPM P-R Int : 126 ms QRS Dur : 076 ms QT Int : 400 ms P-R-T Axes : 067 002 031 degrees QTc Int : 489 ms Normal sinus rhythm Nonspecific T wave abnormality Prolonged QT Abnormal ECG When compared with ECG of 08-OCT-2021 00:11, Questionable change in QRS axis Referred By: Tami Luna Electronically Signed By:VIOLET SULLIVAN
--- NOTE | 2021-10-10 01:25 | PC.NURSE ---
At first encounter with the pt, he is c/o and upset that they took his dinner and milk shake away, reassured to settle that thing in the morning and offered some sandwich and complied. Also, pt refused to be assessed and for vitals to be taken, remained on bed , slept long hours, and IVF maintianed.
[2021-10-10] MEDS: vancomycin HCL 1,000 MG in 0.9 % Sodium Chloride 250 ML 270 MG IV ×2 (03:41→16:18)
[2021-10-10 06:56] VITALS: BP 141/96; PULSE 98; RESP 16; TEMP 36.1; O2SAT 98
[2021-10-10 08:00] VITALS: PULSE 94
[2021-10-10] MEDS: methADONE HCl 20 MG/2 ML ORAL.CONC 25 MG PO (08:24)
[2021-10-10] MEDS: Rivaroxaban 20 MG TABLET PO (08:25)
[2021-10-10] MEDS: 0.9 % Sodium Chloride Flush 3 ML SYRINGE IVFLUSH (08:27)
--- NOTE | 2021-10-10 09:00 | CA_ITS ---
Transthoracic Echocardiogram Patient (Last, First, Middle): Norberto Marquez, Gender: Male Date of : 1990 Age: 30 Procedure Date: 10/10/2021 Procedure Type: Transthoracic Echocardiogram Location[place] [facility] [place] Height: 167.64 cm Weight: 67.59 kg BSA: 1.76 m2 Heart Rate: bpm BP: 141 / 96 mmHg [employer]er [employer]airer: DAGOBERTO Alvarez MD: Shaggy Toribio DO Symptoms: Bacteremia Study Quality: Good ECG Rhythm: Sinus Conclusions: - The left ventricular systolic function is low normal. The visually estimated ejection fraction is between 50-55%. - There is mildly decreased right ventricular systolic function. - There is mild mitral valve regurgitation. - A bioprosthetic tricuspid valve is present. The prosthetic tricuspid valve appears to be functioning abnormally. Mean gradient across the bioprosthetic tricuspid valve of about 10 mmHg at 93/min. Likely small vegetation measuring 1.6x0.6cm attached to the valve. - Study terminated prematurely due to un-cooperative patient. Findings Left Ventricle Normal left ventricular cavity size. There is mildly increased left ventricular wall thickness. The left ventricular systolic function is low normal. The visually estimated ejection fraction is between 50-55%. There is no evidence of regional wall motion abnormalities. There is borderline global hypokinesis. Diastolic function is normal for age. Right Ventricle Normal right ventricular cavity size. There is mildly decreased right ventricular systolic function. TAPSE 1.3cm. Atria The left atrium is normal in size. The right atrium is mildly dilated. Aortic Valve There is a normal trileaflet aortic valve. There is no aortic valve stenosis. There is no aortic valve regurgitation. Mitral Valve There is mild anterior and posterior mitral leaflet thickening. There is mild mitral valve regurgitation. There is no mitral valve stenosis. Pulmonic Valve The pulmonic valve was not well visualized. Tricuspid Valve A bioprosthetic tricuspid valve is present. The prosthetic tricuspid valve appears to be functioning abnormally. There is trace tricuspid valve regurgitation. Mean gradient across the bioprosthetic tricuspid valve of about 10 mmHg at 93/min (verified manually). Likely small vegetation measuring 1.6x0.6cm attached to the valve. Great Vessels The aortic annulus, sinuses of valsalva, and asc aorta are normal in size. Venous The inferior vena cava was not well visualized. Pericardium/Pleural There is no evidence of pericardial effusion. Prior Study Comparison No significant change compared to prior study dated: 07/08/2021. Measurements 2D Linear Measurements IVSd: 1.03 0.6-0.9/0.6-1.0 cm LVIDd: 5.09 3.9-5.3/4.2-5.9 cm LVIDd Index: 2.89 2.4-3.2/2.2-3.1 cm/m2 LVIDs: 3.75 2.0-3.6 cm LVPWd: 1.01 0.7-1.1 cm Ao Root: 3.70 2.1-3.5 cm LA Diam: 3.20 2.7-3.8/3.0-4.0 cm LAIDs Index: 1.82 1.5-2.3 cm/m2 LV Mass: 239.82 67-162/88-224 g LV Mass Index: 136.26 43-95/49-115 g/m2 LVOT Diam: 2.10 3.0+(-)1.3 cm 2D Systolic Function EF 4C: 53.70 >55% Mitral Valve MV Pk E: 0.72 MV PK A: 0.57 MV Decel Time: 229.00 E/A: 1.30 E'Lateral: 10.70 E'Medial: 3.92 E/E' Med: 18.40 E/E' Lat: 6.70 PHT: 67.00 MVA PHT: 3.28 Decel [place]: 3.15 Aortic Valve AoV Pk [place]: 0.93 AoV Mn [place]: 0.62 AoV VTI: 0.15 AoV Pk Grad: 3.00 Aov Mn Grad: 2.00 LVOT LVOT Diam: 2.10 LVOT Area: 3.46 Diastolic Function MV Pk E: 0.72 MV Pk A: 0.57 E/A: 1.30 E'Medial: 3.92 E/E' Med: 18.40 E' Laterial: 10.70 E/E' Lat: 6.70 Right Ventricle TAPSE (mm): 1.20 TVS' Dalton: 6.64 Tricuspid Valve TV Pk Dalton: 2.33 TV Mn Dalton: 1.82 TV Pk Grad: 22.00 TV Mn Grad: 14.00 TR Pk Dalton: 2.01 TR Pk Grad: 16.00 Great Vessels Aorta Ao Root-2D: 3.70 2.0-3.7 cm Ao Asc: 3.50 2.1-3.4 cm Updated in Other Vendor System with Status of Final Kartik Perrin MD electronically signed on 10/10/2021 4:02:45 PM with status of Final
[2021-10-10] MEDS: 0.9 % Sodium Chloride 1,000 ML 100 ML IVCONT ×2 (09:50→20:50)
--- NOTE | 2021-10-10 10:30 | MHC.RECOVRN ---
Briefly met with pt to check in regarding methadone dose. Pt received 25 mg this morning. Pt awake, alert, quiet but able to engage in conversation. Pt reports using heroin, 2 bundles IV daily, as well as cocaine, unknown amount. Pt denies other substances. Pt currently experiencing withdrawal symptoms including chills, muscle aches, restlessness. Discussed with Tami Luna APRN. Additional methadone dose to be ordered for this afternoon.
[2021-10-10 11:03] VITALS: BP 126/90; PULSE 94; RESP 16; TEMP 36; O2SAT 95
[2021-10-10] MEDS: cefTRIAXone sodium 2 GM in 0.9 % Sodium Chloride 50 ML IV (12:12)
--- NOTE | 2021-10-10 12:35 | MHC.CM.PN ---
met with pt who is on methadone,pt is also using heroin and cocaine..it is likley that pt will require placemnt with a picc for iv antibiotics.. referrals made cm will follow pt is vaccinated x 2
[2021-10-10] MEDS: HYDROmorphone HCl 2 MG/ML VIAL 1.5 MG IVPUSH ×2 (13:11→18:01)
[2021-10-10 14:09] LABS: MANUAL DIFF FLAG NO
[2021-10-10 14:17] LABS: Basophils Percent Auto 0.2 % (0-2); Eosinophils Absolute Auto 0.2 X10*3/uL (0.0-0.4); Eosinophils Percent Auto 1.2 % (0-4); Hematocrit 36.2 % (42.0-52.0); Hemoglobin 11.5 g/dl (14.0-18.0); Imm Gran Abs Auto 0.24 X10*3/uL (0.00-0.03); Imm Gran Pct Auto 1.9 % (0.0-0.4); Lymphocytes Absolute Auto 1.8 X10*3/uL (1.2-4.9); Lymphocytes Percent Auto 14.5 % (20-40); Mean Corpuscular HGB Conc 31.8 g/dl (31.0-36.0); Mean Corpuscular Hemoglobin 24.6 pg (27.0-33.0); Mean Corpuscular Volume 77.5 fL (80.0-98.0); Mean Platelet Volume 12.1 fL (9.4-12.4); Monocytes Absolute Auto 0.7 X10*3/uL (0.1-1.2); Monocytes Percent Auto 5.1 % (2-11); Neutrophils Absolute Auto 9.8 x10*3/uL (2.0-8.3); Neutrophils Percent Auto 77.1 % (45-73); Platelet Count 156 X10*3/uL (160-400); Red Blood Count 4.67 X10*6/uL (4.60-5.80); Red Cell Distribution Width 18.6 % (11.0-16.0); White Blood Count 12.7 X10*3/uL (4.8-10.8)
[2021-10-10 14:35] LABS: Alanine Aminotransferase 16 U/L (0-40); Albumin Level 2.3 g/dL (3.5-5.0); Alkaline Phosphatase 205 U/L (39-117); Anion Gap 10 (12-20); Aspartate Amino Transferase 19 U/L (5-37); Bilirubin Total 0.7 mg/dL (0.0-1.0); Blood Urea Nitrogen 11 mg/dL (9-16); Calcium 7.7 mg/dL (8.4-10.2); Carbon Dioxide 17 mmol/L (22-29); Chloride 117 mmol/L (96-108); Creatinine Clr Calc Pharmacy 121.1; Estimated Glomerular Filt Rate > 60; Glucose Fasting 107 mg/dL (60-99); Potassium 3.9 mmol/L (3.3-5.1); Sodium 140 mmol/L (135-145); Total Protein 5.3 g/dL (6.5-8.0)
[2021-10-10 14:45] LABS: Vancomycin Trough 16.6 mcg/mL (10.0-20.0)
--- NOTE | 2021-10-10 14:49 | HO.PM.IMPN ---
Subjective Subjective Date of Service: 10/10/21 Interval History: notes ongoing issues with pain likely secondary from withdrawal. Methadone daily at 20 mg. Review of Systems Denies chest pain Denies shortness of breath Denies nausea vomiting diarrhea Admits to diffuse arthralgias Physical Exam Vital Signs: Vital Signs: Last Vital Signs Temp 96.8 F 10/10/21 11:03 Pulse 94 10/10/21 11:03 Resp 16 10/10/21 11:03 BP 126/90 H 10/10/21 11:03 Pulse Ox 95 10/10/21 11:03 BMI result Body Mass Index 24.0 Const: Other: somnolent but arousable no acute distress HENMT: Other: oropharynx clear; membranes moist Resp: Other: clear to auscultation bilaterally no rales rhonchi wheezes Cardio: Other: no S4; positive S1-S2; no S3 murmurs of scalp GI: Other: soft nontender nondistended normoactive bowel sounds Neuro: Other: cranial nerves 2-12 grossly intact as tested. Motor is 5/5 all extremities sensation intact. Cognition appropriate Extrem: Other: no edema bilaterally Objective Data Active Medications Acetaminophen (Acetaminophen 325 Mg Tablet) 650 mg PO Q6H PRN PRN Reason: Pain, Mild (Pain Scale 1-3) Clonidine HCl (Clonidine Hcl 0.1 Mg Tablet) 0.1 mg PO TID PRN; Protocol PRN Reason: anxiety/restlessness Hydromorphone HCl (Hydromorphone Hcl 2 Mg/Ml Vial) 1.5 mg IVPUSH Q4H PRN; Protocol PRN Reason: Pain, Severe (Pain Scale 7-10) Last Admin: 10/10/21 13:11 Dose: 1.5 mg Documented by: JIMBO Sodium Chloride (Ns) 1,000 mls @ 100 mls/hr IVCONT .Q10H [facility] Last Admin: 10/10/21 09:50 Dose: 100 mls/hr Documented by: DELFINA Ceftriaxone Sodium 2 gm/ (Sodium Chloride) 50 mls @ 100 mls/hr IV Q24H [facility] Last Infusion: 10/10/21 12:42 Dose: 0 mls/hr Documented by: JIMBO Vancomycin HCl 1,000 mg/ (Sodium Chloride) 270 mls @ 270 mls/hr IV Q12H [facility] Last Infusion: 10/10/21 04:47 Dose: 0 mls/hr Documented by: CHONG Melatonin (Melatonin 3 Mg Tablet) 6 mg PO BEDTIME PRN PRN Reason: Insomnia Pharmacy Consult (Consult Rx Vancomycin Dosing) 1 each MISCELLANE DAILY PRN PRN Reason: Consult order Rivaroxaban (Rivaroxaban 20 Mg Tablet) 20 mg PO DAILY [facility] Last Admin: 10/10/21 08:25 Dose: 20 mg Documented by: DELFINA Senna (Sennosides 8.6 Mg Tablet) 17.2 mg PO BEDTIME PRN PRN Reason: Constipation Sodium Chloride (0.9 % Sodium Chloride Flush 3 Ml Syringe) 3 ml IVFLUSH QSHIFT [facility] Last Admin: 10/10/21 08:27 Dose: 3 ml Documented by: DELFINA Labs CBC & Chem 7: 10/10/21 13:53 10/10/21 13:53 Labs: Laboratory Results - last 24 hr 10/09/21 10/09/21 10/09/21 14:25 14:25 14:25 MCV 77.2 L MCH 24.6 L MCHC 31.9 RDW 18.4 H Plt Count 151 L MPV Not Reportable Immature Gran % (Auto) 1.4 H Neut % (Auto) 74.6 H Lymph % (Auto) 15.2 L [place] % (Auto) 8.0 Eos % (Auto) 0.5 Baso % (Auto) 0.3 Lymph # (Auto) 2.3 [place] # (Auto) 1.2 Eos # (Auto) 0.1 Baso # (Auto) 0.0 Abs Immat Gran (auto) 0.21 H Absolute Neuts (auto) 11.3 H Absolute Nucleated RBC 0.000 Nucleated RBC % (auto) 0.0 Smear Tech's Comments VERIFIED Anion Gap 11 L Estim Creat Clear Calc 107.5 Estimated GFR > 60 Fasting Glucose 111 H D Calcium 7.9 L Total Bilirubin 1.1 H AST 25 ALT 14 Alkaline Phosphatase 213 H D Total Protein 5.5 L Albumin 2.2 L D Vancomycin Trough 11.1 10/10/21 10/10/21 10/10/21 13:53 13:53 13:53 MCV 77.5 L MCH 24.6 L MCHC 31.8 RDW 18.6 H Plt Count 156 L MPV 12.1 Immature Gran % (Auto) 1.9 H Neut % (Auto) 77.1 H Lymph % (Auto) 14.5 L [place] % (Auto) 5.1 Eos % (Auto) 1.2 Baso % (Auto) 0.2 Lymph # (Auto) 1.8 [place] # (Auto) 0.7 Eos # (Auto) 0.2 Baso # (Auto) 0.0 Abs Immat Gran (auto) 0.24 H Absolute Neuts (auto) 9.8 H Absolute Nucleated RBC 0.000 Nucleated RBC % (auto) 0.0 Smear Tech's Comments Anion Gap 10 L Estim Creat Clear Calc 121.1 Estimated GFR > 60 Fasting Glucose 107 H Calcium 7.7 L Total Bilirubin 0.7 AST 19 ALT 16 Alkaline Phosphatase 205 H Total Protein 5.3 L Albumin 2.3 L Vancomycin Trough 16.6 Microbiology Microbiology Results: Microbiology 10/07/21 23:44 Blood Culture - Preliminary Blood - Venous Streptococcus species 10/07/21 23:46 Blood Culture - Final Blood - Venous Streptococcus mitis/oralis Assessment and Plan (1) Endocarditis: Status: Acute (2) Opioid use disorder: Status: Acute (3) Bacteremia: Status: Acute Assessment and Plan: 30-year-old male with a past medical history of IV drug abuse, directed to the lower replacement, recurrent endocarditis, hepatitis-C, history of pulmonary embolism-noncompliant with Xarelto; recent admission to the hospital for endocarditis/streptococcal bacteremia; left AMA on 09/17/21-interrupted antibiotic therapy; has been abusing drugs-cocaine and heroin; presented today to the hospital with a chief complaint of altered mental status. Blood cultures x2 drawn in the ER are now growing Gram-positive cocci. Voicing concerns that he wants to sign out secondary to diffuse bone pain likely secondary to withdrawal 1. Gram-positive bacteremia Continue Vanco/CTX as per ID Discussed PIC with pt in backdrop of staunch non-complaint...Await ID of organisms. Will check echo to r/out vegetation MRI cannot be done secondary to epicardial leads 2. PSA Seen by Care Team....dosing methaqdone while in house High risk for outpatient if leaves without treatment once again; continue methadone but will order IV Dilaudid q.4 hours an attempt to keep patient in and complete therapies. 3. Endocarditis(partially treated) Continue Vanco/CTX pending cultures Lovenox/Full code Quality Stroke Does the patient have a stroke diagnosis?: No VTE Prior VTE?: No VTE Risk Level:: Medical - moderate - high VTE Device Contraindication: Treatment Not Indicated VTE Drug Contraindication: N/A - Med Ordered
[2021-10-10 15:08] VITALS: BP 130/90; PULSE 97; RESP 16; TEMP 36.4; O2SAT 97
[2021-10-10 15:34] VITALS: PULSE 92
--- NOTE | 2021-10-10 16:51 | P.PNADD_ITS ---
Subjective Subjective Date of Service: 10/10/21 Reason For Visit: AMS IVDA Bacteremia Interim History: Patient seen in follow up. More awake today. Engaged in interview. Tolerated 25mg methadone. Still experiencing some withdrawal sx including chills, body aches Is eating. Less irritable, did not appear to be diaphoretic Review of Systems Acute medical concerns: Yes Medical Review of Systems: unchanged Mental Status Exam Mental Status Exam Patient Appearance: Appropriate Patient Orientation: Person, Place, Time and Situation Level of Consciousness: Awake, Appropriate and Alert Patient Behavior: Appropriate and Cooperative Mood Description: Calm and Blunted Affect Description: Blunted Patient Cognition Impaired: No Ability to Follow Directions: Excellent Speech Pattern: Clear Judgement: Fair Diagnostics Vital Signs (24Hr): Vital Signs - 24 hr 10/10/21 06:56 10/10/21 11:03 10/10/21 15:08 Temperature 97 F 96.8 F 97.6 F Pulse Rate 98 94 97 Respiratory Rate 16 16 16 Blood Pressure 141/96 H 126/90 H 130/90 H Pulse Oximetry 98 95 97 BMI result Body Mass Index 24.0 Labs Results: 10/10/21 13:53 10/10/21 13:53 Labs: Laboratory Results - last 48 hr 10/09/21 10/09/21 10/09/21 14:25 14:25 14:25 WBC 15.1 H RBC 4.91 Hgb 12.1 L Hct 37.9 L MCV 77.2 L MCH 24.6 L MCHC 31.9 RDW 18.4 H Plt Count 151 L MPV Not Reportable Immature Gran % (Auto) 1.4 H Neut % (Auto) 74.6 H Lymph % (Auto) 15.2 L [place] % (Auto) 8.0 Eos % (Auto) 0.5 Baso % (Auto) 0.3 Lymph # (Auto) 2.3 [place] # (Auto) 1.2 Eos # (Auto) 0.1 Baso # (Auto) 0.0 Abs Immat Gran (auto) 0.21 H Absolute Neuts (auto) 11.3 H Absolute Nucleated RBC 0.000 Nucleated RBC % (auto) 0.0 Smear Tech's Comments VERIFIED Sodium 138 Potassium 4.3 Chloride 114 H Carbon Dioxide 17 L Anion Gap 11 L BUN 12 Creatinine 0.89 Estim Creat Clear Calc 107.5 Estimated GFR > 60 Fasting Glucose 111 H D Calcium 7.9 L Total Bilirubin 1.1 H AST 25 ALT 14 Alkaline Phosphatase 213 H D Total Protein 5.5 L Albumin 2.2 L D Vancomycin Trough 11.1 10/10/21 10/10/21 10/10/21 13:53 13:53 13:53 WBC 12.7 H RBC 4.67 Hgb 11.5 L Hct 36.2 L MCV 77.5 L MCH 24.6 L MCHC 31.8 RDW 18.6 H Plt Count 156 L MPV 12.1 Immature Gran % (Auto) 1.9 H Neut % (Auto) 77.1 H Lymph % (Auto) 14.5 L [place] % (Auto) 5.1 Eos % (Auto) 1.2 Baso % (Auto) 0.2 Lymph # (Auto) 1.8 [place] # (Auto) 0.7 Eos # (Auto) 0.2 Baso # (Auto) 0.0 Abs Immat Gran (auto) 0.24 H Absolute Neuts (auto) 9.8 H Absolute Nucleated RBC 0.000 Nucleated RBC % (auto) 0.0 Smear Tech's Comments Sodium 140 Potassium 3.9 Chloride 117 H Carbon Dioxide 17 L Anion Gap 10 L BUN 11 Creatinine 0.79 Estim Creat Clear Calc 121.1 Estimated GFR > 60 Fasting Glucose 107 H Calcium 7.7 L Total Bilirubin 0.7 AST 19 ALT 16 Alkaline Phosphatase 205 H Total Protein 5.3 L Albumin 2.3 L Vancomycin Trough 16.6 Imaging Radiology Impressions: ITS Impressions Chest X-Ray 10/07/21 20:14 IMPRESSION: No acute cardiopulmonary findings. Head CT 10/08/21 01:20 IMPRESSION: No acute intracranial pathology. Abdomen/Pelvis CT 10/08/21 01:37 IMPRESSION: 1. No acute pulmonary embolism. 2. Continued improvement of lung opacities when compared to the prior study. The largest opacity that remains is seen at the medial left lower lobe. 3. Persistent hilar adenopathy which is likely reactive. 4. Hepatic steatosis with hepatomegaly. Small volume ascites appears slightly increased from prior. VTE: negative Chest CTA 10/08/21 01:37 IMPRESSION: 1. No acute pulmonary embolism. 2. Continued improvement of lung opacities when compared to the prior study. The largest opacity that remains is seen at the medial left lower lobe. 3. Persistent hilar adenopathy which is likely reactive. 4. Hepatic steatosis with hepatomegaly. Small volume ascites appears slightly increased from prior. VTE: negative Medications Medications Current Medications Acetaminophen (Acetaminophen 325 Mg Tablet) 650 mg PO Q6H PRN PRN Reason: Pain, Mild (Pain Scale 1-3) Clonidine HCl (Clonidine Hcl 0.1 Mg Tablet) 0.1 mg PO TID PRN; Protocol PRN Reason: anxiety/restlessness Hydromorphone HCl (Hydromorphone Hcl 2 Mg/Ml Vial) 1.5 mg IVPUSH Q4H PRN; Protocol PRN Reason: Pain, Severe (Pain Scale 7-10) Last Admin: 10/10/21 13:11 Dose: 1.5 mg Documented by: Sodium Chloride (Ns) 1,000 mls @ 100 mls/hr IVCONT .Q10H [facility] Last Admin: 10/10/21 09:50 Dose: 100 mls/hr Documented by: Ceftriaxone Sodium 2 gm/ (Sodium Chloride) 50 mls @ 100 mls/hr IV Q24H [facility] Last Infusion: 10/10/21 12:42 Dose: Infused Documented by: Vancomycin HCl 1,000 mg/ (Sodium Chloride) 270 mls @ 270 mls/hr IV Q12H [facility] Last Admin: 10/10/21 16:18 Dose: 270 mls/hr Documented by: Melatonin (Melatonin 3 Mg Tablet) 6 mg PO BEDTIME PRN PRN Reason: Insomnia Methadone HCl (Methadone Hcl 20 Mg/2 Ml Oral.Conc) 35 mg PO DAILY [facility] Pharmacy Consult (Consult Rx Vancomycin Dosing) 1 each MISCELLANE DAILY PRN PRN Reason: Consult order Rivaroxaban (Rivaroxaban 20 Mg Tablet) 20 mg PO DAILY [facility] Last Admin: 10/10/21 08:25 Dose: 20 mg Documented by: Senna (Sennosides 8.6 Mg Tablet) 17.2 mg PO BEDTIME PRN PRN Reason: Constipation Sodium Chloride (0.9 % Sodium Chloride Flush 3 Ml Syringe) 3 ml IVFLUSH QSHIFT [facility] Last Admin: 10/10/21 08:27 Dose: 3 ml Documented by: Allergies Allergies Allergy/AdvReac Type Severity Reaction Status Date / Time No Known Allergies Allergy Unverified 07/05/20 15:53 [No Known Allergies*] Assessment & Plan Assessment & Plan (1) Opioid use disorder: Status: Acute Code(s): F11.99 - Opioid use, unspecified with unspecified opioid-induced disorder Assessment and Plan: * additional 10mg methadone today (total 35) * methadone 35mg tomorrow * monitor for over sedation dorita with dilaudid --as methadone dose increased dilaudid dose or interval should decrease * hold dilaudid or methadone dose if concern for oversedation I spent ____25__ minutes with the patient and/or on the patient floor today, greater than?50% of which was spent counseling/coordinating care.
[2021-10-10] MEDS: methADONE HCl 20 MG/2 ML ORAL.CONC 10 MG PO (17:52)
[2021-10-10 20:00] VITALS: PULSE 99; RESP 20
[2021-10-11 04:00] VITALS: BP 134/86; PULSE 89; RESP 19; TEMP 36.9; O2SAT 97
[2021-10-11] MEDS: vancomycin HCL 1,000 MG in 0.9 % Sodium Chloride 250 ML 270 MG IV (04:05)
[2021-10-11 07:18] VITALS: BP 125/87; PULSE 90; RESP 18; TEMP 36.6; O2SAT 97
[2021-10-11] MEDS: methADONE HCl 20 MG/2 ML ORAL.CONC 35 MG PO (08:35)
[2021-10-11] MEDS: Rivaroxaban 20 MG TABLET PO (08:35)
[2021-10-11] MEDS: 0.9 % Sodium Chloride Flush 3 ML SYRINGE IVFLUSH ×3 (08:36→21:27)
[2021-10-11] MEDS: HYDROmorphone HCl 2 MG/ML VIAL 1.5 MG IVPUSH ×3 (08:43→20:02)
[2021-10-11 09:49] LABS: MANUAL DIFF FLAG NO
[2021-10-11 09:54] LABS: Basophils Percent Auto 0.3 % (0-2); Eosinophils Absolute Auto 0.2 X10*3/uL (0.0-0.4); Eosinophils Percent Auto 1.8 % (0-4); Hematocrit 36.4 % (42.0-52.0); Hemoglobin 11.4 g/dl (14.0-18.0); Imm Gran Abs Auto 0.39 X10*3/uL (0.00-0.03); Imm Gran Pct Auto 2.9 % (0.0-0.4); Lymphocytes Absolute Auto 2.3 X10*3/uL (1.2-4.9); Lymphocytes Percent Auto 16.7 % (20-40); Mean Corpuscular HGB Conc 31.3 g/dl (31.0-36.0); Mean Corpuscular Hemoglobin 24.5 pg (27.0-33.0); Mean Corpuscular Volume 78.1 fL (80.0-98.0); Mean Platelet Volume 10.6 fL (9.4-12.4); Monocytes Absolute Auto 0.6 X10*3/uL (0.1-1.2); Monocytes Percent Auto 4.1 % (2-11); Neutrophils Absolute Auto 10.1 x10*3/uL (2.0-8.3); Neutrophils Percent Auto 74.2 % (45-73); Platelet Count 182 X10*3/uL (160-400); Red Blood Count 4.66 X10*6/uL (4.60-5.80); Red Cell Distribution Width 18.6 % (11.0-16.0); White Blood Count 13.5 X10*3/uL (4.8-10.8)
--- NOTE | 2021-10-11 10:03 | MHC.CM.PN ---
PER MD, PT MAY BE READY TO DC THURSDAY CLINICAL UPDATES WERE SENT TO [facility] ALONG WITH EXPECTED DC DATE. AWAITING RESPONSE TO DETERMINE IF THEY EXPECT A BED TO BE OPEN DID NOT SEND UPDATES TO [facility] DUE TO PT BEING STARTED ON METHADONE
[2021-10-11 10:32] LABS: Alanine Aminotransferase 17 U/L (0-40); Albumin Level 2.4 g/dL (3.5-5.0); Alkaline Phosphatase 214 U/L (39-117); Anion Gap 10 (12-20); Aspartate Amino Transferase 22 U/L (5-37); Bilirubin Total 0.8 mg/dL (0.0-1.0); Blood Urea Nitrogen 11 mg/dL (9-16); Calcium 7.9 mg/dL (8.4-10.2); Carbon Dioxide 17 mmol/L (22-29); Chloride 117 mmol/L (96-108); Creatinine Clr Calc Pharmacy 107.5; Estimated Glomerular Filt Rate > 60; Glucose Fasting 100 mg/dL (60-99); Potassium 4.1 mmol/L (3.3-5.1); Sodium 140 mmol/L (135-145); Total Protein 5.6 g/dL (6.5-8.0)
[2021-10-11 11:49] VITALS: BP 121/84; PULSE 95; RESP 20; TEMP 36.2; O2SAT 95
[2021-10-11] MEDS: cefTRIAXone sodium 2 GM in 0.9 % Sodium Chloride 50 ML IV (12:20)
--- NOTE | 2021-10-11 12:44 | HO.PM.IMPN ---
Subjective Subjective Date of Service: 10/11/21 Interval History: the patient was seen and evaluated this morning Laying in bed, feels Better Still complaining of back pain which is better controlled now Denies any fever, but having chills No reported other overnight events. Systemic review: No fever but having chills No chest pain, palpitation No shortness of breath or coughing No abdominal pain, nausea or vomiting No urinary symptoms No any rash or wounds Physical Exam Vital Signs: Vital Signs: Last Vital Signs Temp 97.1 F 10/11/21 11:49 Pulse 95 10/11/21 11:49 Resp 20 10/11/21 11:49 BP 121/84 10/11/21 11:49 Pulse Ox 95 10/11/21 11:49 BMI result Body Mass Index 24.0 Const: Other: Constitutional : Alert, oriented, not in distress Neck : Normal inspection, Supple Cardiovascular : RRR, S1 S2, no lower extremity edema Respiratory : Good bilateral air entry, no crackles, wheezes or rhonchi Gastrointestinal: soft, lax, Normal bowel sounds, Non tender Skin : Warm, Dry Neurological : Alert & oriented x3, No focal deficit Objective Data Active Medications Acetaminophen (Acetaminophen 325 Mg Tablet) 650 mg PO Q6H PRN PRN Reason: Pain, Mild (Pain Scale 1-3) Clonidine HCl (Clonidine Hcl 0.1 Mg Tablet) 0.1 mg PO TID PRN; Protocol PRN Reason: anxiety/restlessness Gabapentin (Gabapentin 300 Mg Capsule) 300 mg PO TID CRISTINA Hydromorphone HCl (Hydromorphone Hcl 2 Mg/Ml Vial) 1.5 mg IVPUSH Q4H PRN; Protocol PRN Reason: Pain, Severe (Pain Scale 7-10) Last Admin: 10/11/21 08:43 Dose: 1.5 mg Documented by: DELFINA Ceftriaxone Sodium 2 gm/ (Sodium Chloride) 50 mls @ 100 mls/hr IV Q24H [facility] Last Admin: 10/11/21 12:20 Dose: 100 mls/hr Documented by: LEEANNE Vancomycin HCl 1,000 mg/ (Sodium Chloride) 270 mls @ 270 mls/hr IV Q12H [facility] Last Infusion: 10/11/21 05:13 Dose: 0 mls/hr Documented by: QIAN Melatonin (Melatonin 3 Mg Tablet) 6 mg PO BEDTIME PRN PRN Reason: Insomnia Methadone HCl (Methadone Hcl 20 Mg/2 Ml Oral.Conc) 35 mg PO DAILY [facility] Last Admin: 10/11/21 08:35 Dose: 35 mg Documented by: DELFINA Pharmacy Consult (Consult Rx Vancomycin Dosing) 1 each MISCELLANE DAILY PRN PRN Reason: Consult order Rivaroxaban (Rivaroxaban 20 Mg Tablet) 20 mg PO DAILY [facility] Last Admin: 10/11/21 08:35 Dose: 20 mg Documented by: DELFINA Senna (Sennosides 8.6 Mg Tablet) 17.2 mg PO BEDTIME PRN PRN Reason: Constipation Sodium Chloride (0.9 % Sodium Chloride Flush 3 Ml Syringe) 3 ml IVFLUSH QSHIFT [facility] Last Admin: 10/11/21 08:36 Dose: 3 ml Documented by: DELFINA Labs CBC & Chem 7: 10/11/21 09:33 10/11/21 09:33 Labs: Laboratory Results - last 24 hr 10/10/21 10/10/21 10/10/21 13:53 13:53 13:53 MCV 77.5 L MCH 24.6 L MCHC 31.8 RDW 18.6 H Plt Count 156 L MPV 12.1 Immature Gran % (Auto) 1.9 H Neut % (Auto) 77.1 H Lymph % (Auto) 14.5 L [place] % (Auto) 5.1 Eos % (Auto) 1.2 Baso % (Auto) 0.2 Lymph # (Auto) 1.8 [place] # (Auto) 0.7 Eos # (Auto) 0.2 Baso # (Auto) 0.0 Abs Immat Gran (auto) 0.24 H Absolute Neuts (auto) 9.8 H Absolute Nucleated RBC 0.000 Nucleated RBC % (auto) 0.0 Anion Gap 10 L Estim Creat Clear Calc 121.1 Estimated GFR > 60 Fasting Glucose 107 H Calcium 7.7 L Total Bilirubin 0.7 AST 19 ALT 16 Alkaline Phosphatase 205 H Total Protein 5.3 L Albumin 2.3 L Vancomycin Trough 16.6 10/11/21 10/11/21 09:33 09:33 MCV 78.1 L MCH 24.5 L MCHC 31.3 RDW 18.6 H Plt Count 182 MPV 10.6 Immature Gran % (Auto) 2.9 H Neut % (Auto) 74.2 H Lymph % (Auto) 16.7 L [place] % (Auto) 4.1 Eos % (Auto) 1.8 Baso % (Auto) 0.3 Lymph # (Auto) 2.3 [place] # (Auto) 0.6 Eos # (Auto) 0.2 Baso # (Auto) 0.0 Abs Immat Gran (auto) 0.39 H Absolute Neuts (auto) 10.1 H Absolute Nucleated RBC 0.000 Nucleated RBC % (auto) 0.0 Anion Gap 10 L Estim Creat Clear Calc 107.5 Estimated GFR > 60 Fasting Glucose 100 H Calcium 7.9 L Total Bilirubin 0.8 AST 22 ALT 17 Alkaline Phosphatase 214 H Total Protein 5.6 L Albumin 2.4 L Vancomycin Trough Microbiology Microbiology Results: Microbiology 10/07/21 23:44 Blood Culture - Preliminary Blood - Venous Streptococcus species 10/07/21 23:46 Blood Culture - Final Blood - Venous Streptococcus mitis/oralis Assessment and Plan (1) Bacteremia: Status: Acute (2) Polysubstance abuse: Status: Acute Assessment and Plan: 30-year-old male with a past medical history of IV drug abuse, directed to the lower replacement, recurrent endocarditis, hepatitis-C, history of pulmonary embolism-noncompliant with Xarelto; recent admission to the hospital for endocarditis/streptococcal bacteremia; left AMA on 09/17/21-interrupted antibiotic therapy; has been abusing drugs-cocaine and heroin; presented today to the hospital with a chief complaint of altered mental status. Blood cultures x2 drawn in the ER are now growing Gram-positive cocci. Voicing concerns that he wants to sign out secondary to diffuse bone pain likely secondary to withdrawal 1. Gram-positive bacteremia Continue Vanco/CTX as per ID blood cultures growing strep meet his sensitive to ceftriaxone id input appreciated, continue vanco on ceftriaxone till finalized cultures echo did not show any vegetations MRI cannot be done secondary to epicardial leads 2. [place] substance abuse Seen by Care Team....dosing methaqdone while in house High risk for outpatient if leaves without treatment once again; continue methadone with p.r.n. IV Dilaudid q.4 hours 3. Endocarditis(partially treated) Continue Vanco/CTX until final decision by ID Sosa/Full code Quality Stroke Does the patient have a stroke diagnosis?: No VTE Prior VTE?: No VTE Risk Level:: Medical - moderate - high VTE Device Contraindication: Treatment Not Indicated VTE Drug Contraindication: N/A - Med Ordered
[2021-10-11 14:30] LABS: Vancomycin Trough 18.9 mcg/mL (10.0-20.0)
[2021-10-11 15:11] VITALS: BP 140/91; PULSE 88; RESP 19; TEMP 37.3; O2SAT 95
[2021-10-11] MEDS: vancomycin HCL 750 MG in 0.9 % Sodium Chloride 250 ML 265 MG IV (15:59)
[2021-10-11] MEDS: Gabapentin 300 MG CAPSULE PO ×2 (16:00→21:26)
[2021-10-11 19:50] VITALS: BP 131/91; PULSE 101; RESP 18; TEMP 37.3; O2SAT 93
[2021-10-12] MEDS: HYDROmorphone HCl 2 MG/ML VIAL 1.5 MG IVPUSH ×4 (01:04→20:48)
[2021-10-12] MEDS: vancomycin HCL 750 MG in 0.9 % Sodium Chloride 250 ML 265 MG IV (04:02)
[2021-10-12 07:17] VITALS: BP 135/95; PULSE 86; RESP 20; TEMP 37.2; O2SAT 97
[2021-10-12] MEDS: 0.9 % Sodium Chloride Flush 3 ML SYRINGE IVFLUSH ×2 (08:39→20:49)
[2021-10-12] MEDS: methADONE HCl 20 MG/2 ML ORAL.CONC 35 MG PO (08:39)
[2021-10-12] MEDS: Rivaroxaban 20 MG TABLET PO (08:39)
[2021-10-12] MEDS: Gabapentin 300 MG CAPSULE PO ×3 (08:39→20:28)
[2021-10-12 08:44] VITALS: BP 135/95; PULSE 86
[2021-10-12] MEDS: cloNIDine HCL 0.1 MG TABLET PO (08:44)
[2021-10-12] MEDS: Acetaminophen 325 MG TABLET 650 MG PO ×2 (08:44→22:01)
--- NOTE | 2021-10-12 10:53 | HO.PM.IMPN ---
Subjective Subjective Date of Service: 10/12/21 Interval History: the patient was seen and evaluated this morning Laying in bed, complaining with faculty go to sleep back pain is better controlled now Denies any fever, but having chills No reported other overnight events. Systemic review: No fever but having chills No chest pain, palpitation No shortness of breath or coughing No abdominal pain, nausea or vomiting No urinary symptoms No any rash or wounds Physical Exam Vital Signs: Vital Signs: Last Vital Signs Temp 99.0 F 10/12/21 07:17 Pulse 86 10/12/21 08:44 Resp 20 10/12/21 07:17 BP 135/95 H 10/12/21 08:44 Pulse Ox 97 10/12/21 07:17 BMI result Body Mass Index 24.0 Const: Other: Constitutional : Alert, oriented, not in distress Neck : Normal inspection, Supple Cardiovascular : RRR, S1 S2, no lower extremity edema Respiratory : Good bilateral air entry, no crackles, wheezes or rhonchi Gastrointestinal: soft, lax, Normal bowel sounds, Non tender Skin : Warm, Dry Neurological : Alert & oriented x3, No focal deficit Objective Data Active Medications Acetaminophen (Acetaminophen 325 Mg Tablet) 650 mg PO Q6H PRN PRN Reason: Pain, Mild (Pain Scale 1-3) Last Admin: 10/12/21 08:44 Dose: 650 mg Documented by: DIANNE Clonidine HCl (Clonidine Hcl 0.1 Mg Tablet) 0.1 mg PO TID PRN; Protocol PRN Reason: anxiety/restlessness Last Admin: 10/12/21 08:44 Dose: 0.1 mg Documented by: DIANNE Gabapentin (Gabapentin 300 Mg Capsule) 300 mg PO TID [facility] Last Admin: 10/12/21 08:39 Dose: 300 mg Documented by: DIANNE Hydromorphone HCl (Hydromorphone Hcl 2 Mg/Ml Vial) 1.5 mg IVPUSH Q4H PRN; Protocol PRN Reason: Pain, Severe (Pain Scale 7-10) Last Admin: 10/12/21 08:45 Dose: 1.5 mg Documented by: DIANNE Ceftriaxone Sodium 2 gm/ (Sodium Chloride) 50 mls @ 100 mls/hr IV Q24H [facility] Last Infusion: 10/11/21 13:41 Dose: 0 mls/hr Documented by: LEEANNE Vancomycin HCl 750 mg/ Sodium (Chloride) 265 mls @ 265 mls/hr IV Q12H [facility] Last Infusion: 10/12/21 05:03 Dose: 0 mls/hr Documented by: MAMIE Melatonin (Melatonin 3 Mg Tablet) 6 mg PO BEDTIME PRN PRN Reason: Insomnia Melatonin (Melatonin 3 Mg Tablet) 6 mg PO BEDTIME [facility] Methadone HCl (Methadone Hcl 20 Mg/2 Ml Oral.Conc) 35 mg PO DAILY [facility] Last Admin: 10/12/21 08:39 Dose: 35 mg Documented by: DIANNE Pharmacy Consult (Consult Rx Vancomycin Dosing) 1 each MISCELLANE DAILY PRN PRN Reason: Consult order Rivaroxaban (Rivaroxaban 20 Mg Tablet) 20 mg PO DAILY [facility] Last Admin: 10/12/21 08:39 Dose: 20 mg Documented by: DIANNE Senna (Sennosides 8.6 Mg Tablet) 17.2 mg PO BEDTIME PRN PRN Reason: Constipation Sodium Chloride (0.9 % Sodium Chloride Flush 3 Ml Syringe) 3 ml IVFLUSH QSHIFT [facility] Last Admin: 10/12/21 08:39 Dose: 3 ml Documented by: DIANNE Labs CBC & Chem 7: 10/11/21 09:33 10/11/21 09:33 Labs: Laboratory Results - last 24 hr 10/11/21 14:01 Vancomycin Trough 18.9 Microbiology Microbiology Results: Microbiology 10/07/21 23:44 Blood Culture - Final Blood - Venous Streptococcus mitis/oralis 10/10/21 13:53 Blood Culture - Preliminary Blood - Venous No growth after 24 hours. 10/10/21 13:53 Blood Culture - Preliminary Blood - Venous No growth after 24 hours. Assessment and Plan (1) Polysubstance abuse: Status: Acute (2) Bacteremia: Status: Acute Assessment and Plan: 30-year-old male with a past medical history of IV drug abuse, directed to the lower replacement, recurrent endocarditis, hepatitis-C, history of pulmonary embolism-noncompliant with Xarelto; recent admission to the hospital for endocarditis/streptococcal bacteremia; left AMA on 09/17/21-interrupted antibiotic therapy; has been abusing drugs-cocaine and heroin; presented today to the hospital with a chief complaint of altered mental status. Blood cultures x2 drawn in the ER are now growing Gram-positive cocci. Voicing concerns that he wants to sign out secondary to diffuse bone pain likely secondary to withdrawal 1. Gram-positive bacteremia Continue Vanco/CTX as per ID blood cultures growing strep meet his sensitive to ceftriaxone id input appreciated, DC vanco and continue with ceftriaxone alone repeated blood culture from 10/10 still negative echo did not show any vegetations to place PICC line on Thursday MRI cannot be done secondary to epicardial leads 2. polysubstance abuse Seen by Care Team....dosing methaqdone while in house High risk for outpatient if leaves without treatment once again; continue methadone with p.r.n. IV Dilaudid q.4 hours 3. Endocarditis(partially treated) Continue Vanco/CTX until final decision by JORDEN Swan/Full code Quality Stroke Does the patient have a stroke diagnosis?: No VTE Prior VTE?: No VTE Risk Level:: Medical - moderate - high VTE Device Contraindication: Treatment Not Indicated VTE Drug Contraindication: N/A - Med Ordered
[2021-10-12] MEDS: cefTRIAXone sodium 2 GM in 0.9 % Sodium Chloride 50 ML IV (11:46)
[2021-10-12] MEDS: Nicotine 14 MG PATCH.TD24 TRANSDERMA (11:46)
--- NOTE | 2021-10-12 11:57 | P.PNADD_ITS ---
Subjective Subjective Date of Service: 10/12/21 Reason For Visit: AMS IVDA Bacteremia Interim History: Still some body aches and pleuritic discomfort Irritability with clinical team and refusing care at times, discussed importance of obtaining labwork and allowing clinical care--patient verbalized understanding and agreeable. Spent time discussing patients goals with regards to medical and addiction treatment, patient identifying barriers to treatment including past trauma, loss of relationships and limited coping strategies Would like to continue titrating methadone and aware that Dilaudid will begin to taper (dorita since it will not be given at discharge) Requesting NRT. Review of Systems Acute medical concerns: Yes Medical Review of Systems: unchanged Mental Status Exam Mental Status Exam Patient Appearance: Appropriate Patient Orientation: Person, Place, Time and Situation Level of Consciousness: Awake, Appropriate and Alert Patient Behavior: Appropriate, Talkative, Cooperative and Resistive to Care (per nursing team -refusing labs) Thought Process: Intact, Rumination and Goal Oriented Thought Content: positive for Intact, positive for Baldwin and positive for Goal Oriented Judgement: Fair Diagnostics Vital Signs (24Hr): Vital Signs - 24 hr 10/11/21 15:11 10/11/21 19:50 10/12/21 07:17 Temperature 99.2 F 99.2 F 99.0 F Pulse Rate 88 101 H 86 Respiratory Rate 19 18 20 Blood Pressure 140/91 H 131/91 H 135/95 H Pulse Oximetry 95 93 97 10/12/21 08:44 Temperature Pulse Rate 86 Respiratory Rate Blood Pressure 135/95 H Pulse Oximetry BMI result Body Mass Index 24.0 Labs Results: 10/11/21 09:33 10/11/21 09:33 Labs: Laboratory Results - last 48 hr 10/10/21 10/10/21 10/10/21 13:53 13:53 13:53 WBC 12.7 H RBC 4.67 Hgb 11.5 L Hct 36.2 L MCV 77.5 L MCH 24.6 L MCHC 31.8 RDW 18.6 H Plt Count 156 L MPV 12.1 Immature Gran % (Auto) 1.9 H Neut % (Auto) 77.1 H Lymph % (Auto) 14.5 L [place] % (Auto) 5.1 Eos % (Auto) 1.2 Baso % (Auto) 0.2 Lymph # (Auto) 1.8 [place] # (Auto) 0.7 Eos # (Auto) 0.2 Baso # (Auto) 0.0 Abs Immat Gran (auto) 0.24 H Absolute Neuts (auto) 9.8 H Absolute Nucleated RBC 0.000 Nucleated RBC % (auto) 0.0 Sodium 140 Potassium 3.9 Chloride 117 H Carbon Dioxide 17 L Anion Gap 10 L BUN 11 Creatinine 0.79 Estim Creat Clear Calc 121.1 Estimated GFR > 60 Fasting Glucose 107 H Calcium 7.7 L Total Bilirubin 0.7 AST 19 ALT 16 Alkaline Phosphatase 205 H Total Protein 5.3 L Albumin 2.3 L Vancomycin Trough 16.6 10/11/21 10/11/21 10/11/21 09:33 09:33 14:01 WBC 13.5 H RBC 4.66 Hgb 11.4 L Hct 36.4 L MCV 78.1 L MCH 24.5 L MCHC 31.3 RDW 18.6 H Plt Count 182 MPV 10.6 Immature Gran % (Auto) 2.9 H Neut % (Auto) 74.2 H Lymph % (Auto) 16.7 L [place] % (Auto) 4.1 Eos % (Auto) 1.8 Baso % (Auto) 0.3 Lymph # (Auto) 2.3 [place] # (Auto) 0.6 Eos # (Auto) 0.2 Baso # (Auto) 0.0 Abs Immat Gran (auto) 0.39 H Absolute Neuts (auto) 10.1 H Absolute Nucleated RBC 0.000 Nucleated RBC % (auto) 0.0 Sodium 140 Potassium 4.1 Chloride 117 H Carbon Dioxide 17 L Anion Gap 10 L BUN 11 Creatinine 0.89 Estim Creat Clear Calc 107.5 Estimated GFR > 60 Fasting Glucose 100 H Calcium 7.9 L Total Bilirubin 0.8 AST 22 ALT 17 Alkaline Phosphatase 214 H Total Protein 5.6 L Albumin 2.4 L Vancomycin Trough 18.9 Imaging Radiology Impressions: ITS Impressions Chest X-Ray 10/07/21 20:14 IMPRESSION: No acute cardiopulmonary findings. Head CT 10/08/21 01:20 IMPRESSION: No acute intracranial pathology. Abdomen/Pelvis CT 10/08/21 01:37 IMPRESSION: 1. No acute pulmonary embolism. 2. Continued improvement of lung opacities when compared to the prior study. The largest opacity that remains is seen at the medial left lower lobe. 3. Persistent hilar adenopathy which is likely reactive. 4. Hepatic steatosis with hepatomegaly. Small volume ascites appears slightly increased from prior. VTE: negative Chest CTA 10/08/21 01:37 IMPRESSION: 1. No acute pulmonary embolism. 2. Continued improvement of lung opacities when compared to the prior study. The largest opacity that remains is seen at the medial left lower lobe. 3. Persistent hilar adenopathy which is likely reactive. 4. Hepatic steatosis with hepatomegaly. Small volume ascites appears slightly increased from prior. VTE: negative Medications Medications Current Medications Acetaminophen (Acetaminophen 325 Mg Tablet) 650 mg PO Q6H PRN PRN Reason: Pain, Mild (Pain Scale 1-3) Last Admin: 10/12/21 08:44 Dose: 650 mg Documented by: Clonidine HCl (Clonidine Hcl 0.1 Mg Tablet) 0.1 mg PO TID PRN; Protocol PRN Reason: anxiety/restlessness Last Admin: 10/12/21 08:44 Dose: 0.1 mg Documented by: Gabapentin (Gabapentin 300 Mg Capsule) 300 mg PO TID [facility] Last Admin: 10/12/21 08:39 Dose: 300 mg Documented by: Hydromorphone HCl (Hydromorphone Hcl 2 Mg/Ml Vial) 1.5 mg IVPUSH Q4H PRN; Protocol PRN Reason: Pain, Severe (Pain Scale 7-10) Last Admin: 10/12/21 08:45 Dose: 1.5 mg Documented by: Ceftriaxone Sodium 2 gm/ (Sodium Chloride) 50 mls @ 100 mls/hr IV Q24H [facility] Last Admin: 10/12/21 11:46 Dose: 100 mls/hr Documented by: Melatonin (Melatonin 3 Mg Tablet) 6 mg PO BEDTIME PRN PRN Reason: Insomnia Melatonin (Melatonin 3 Mg Tablet) 6 mg PO BEDTIME [facility] Methadone HCl (Methadone Hcl 20 Mg/2 Ml Oral.Conc) 45 mg PO DAILY [facility] Methadone HCl (Methadone Hcl 20 Mg/2 Ml Oral.Conc) 5 mg PO ONCE ONE Stop: 10/12/21 19:01 Nicotine (Nicotine 14 Mg Patch.Td24) 14 mg TRANSDERMA DAILY [facility] Last Admin: 10/12/21 11:46 Dose: 14 mg Documented by: Nicotine Polacrilex (Nicotine Polacrilex Lozenge 4 Mg Lozenge) 4 mg BUCCAL Q2H PRN PRN Reason: Nicotine Cravings Pharmacy Consult (Consult Rx Vancomycin Dosing) 1 each MISCELLANE DAILY PRN PRN Reason: Consult order Rivaroxaban (Rivaroxaban 20 Mg Tablet) 20 mg PO DAILY [facility] Last Admin: 10/12/21 08:39 Dose: 20 mg Documented by: Senna (Sennosides 8.6 Mg Tablet) 17.2 mg PO BEDTIME PRN PRN Reason: Constipation Sodium Chloride (0.9 % Sodium Chloride Flush 3 Ml Syringe) 3 ml IVFLUSH QSHIFT [facility] Last Admin: 10/12/21 08:39 Dose: 3 ml Documented by: Allergies Allergies Allergy/AdvReac Type Severity Reaction Status Date / Time No Known Allergies Allergy Unverified 07/05/20 15:53 [No Known Allergies*] Assessment & Plan Assessment & Plan (1) Opioid use disorder: Status: Acute Code(s): F11.99 - Opioid use, unspecified with unspecified opioid-induced disorder Assessment and Plan: * Methadone 5mg tonight (total 40mg today) * Methadone increased to 45mg QD tomorrow AM * NRT ordered * Discussed with provider and RN * Follow up Thursday I spent __35____ minutes with the patient and/or on the patient floor today, greater than?50% of which was spent counseling/coordinating care.
[2021-10-12 16:43] LABS: Creatinine Clr Calc Pharmacy 101.8; Estimated Glomerular Filt Rate > 60
[2021-10-12 16:50] LABS: Vancomycin Trough 12.9 mcg/mL (10.0-20.0)
[2021-10-12 19:35] VITALS: BP 132/83; PULSE 103; RESP 18; TEMP 37.1; O2SAT 93
[2021-10-12] MEDS: methADONE HCl 20 MG/2 ML ORAL.CONC 5 MG PO (20:28)
[2021-10-12] MEDS: Melatonin 3 MG TABLET 6 MG PO (20:28)
[2021-10-12 23:17] VITALS: BP 119/79; PULSE 104; RESP 19; TEMP 36.7; O2SAT 95
[2021-10-13] VITALS (7 sets, daily range): BP systolic 105–117; BP diastolic 51–75; PULSE 103–120; RESP 18–22; TEMP 36.6–40; O2SAT 92–95
[2021-10-13] MEDS: Nicotine 14 MG PATCH.TD24 TRANSDERMA (08:01)
[2021-10-13] MEDS: methADONE HCl 20 MG/2 ML ORAL.CONC 45 MG PO (08:02)
[2021-10-13] MEDS: Gabapentin 300 MG CAPSULE PO ×3 (08:02→20:35)
[2021-10-13] MEDS: Rivaroxaban 20 MG TABLET PO (08:02)
[2021-10-13] MEDS: HYDROmorphone HCl 2 MG/ML VIAL 1.5 MG IVPUSH ×5 (08:11→23:24)
[2021-10-13] MEDS: Nicotine Polacrilex Lozenge 4 MG LOZENGE BUCCAL (08:11)
[2021-10-13] MEDS: 0.9 % Sodium Chloride Flush 3 ML SYRINGE IVFLUSH ×3 (08:11→20:35)
--- NOTE | 2021-10-13 12:16 | P.PNIM_ITS ---
Subjective Subjective Date of Service: 10/13/21 Interval History: the patient was seen and evaluated this morning Laying in bed, feels comfortable overall back pain is better controlled now Denies any fever, but having chills No reported other overnight events. Systemic review: No fever but having chills No chest pain, palpitation No shortness of breath or coughing No abdominal pain, nausea or vomiting No urinary symptoms No any rash or wounds Physical Exam Vital Signs: Vital Signs: Last Vital Signs Temp 98.9 F 10/13/21 11:12 Pulse 110 H 10/13/21 11:12 Resp 20 10/13/21 11:12 BP 117/75 10/13/21 11:12 Pulse Ox 95 10/13/21 11:12 BMI result Body Mass Index 24.0 Const: Other: Constitutional : Alert, oriented, not in distress Neck : Normal inspection, Supple Cardiovascular : RRR, S1 S2, no lower extremity edema Respiratory : Good bilateral air entry, no crackles, wheezes or rhonchi Gastrointestinal: soft, lax, Normal bowel sounds, Non tender Skin : Warm, Dry Neurological : Alert & oriented x3, No focal deficit Objective Data Active Medications Acetaminophen (Acetaminophen 325 Mg Tablet) 650 mg PO Q6H PRN PRN Reason: Pain, Mild (Pain Scale 1-3) Last Admin: 10/12/21 22:01 Dose: 650 mg Documented by: KHANH Clonidine HCl (Clonidine Hcl 0.1 Mg Tablet) 0.1 mg PO TID PRN; Protocol PRN Reason: anxiety/restlessness Last Admin: 10/12/21 08:44 Dose: 0.1 mg Documented by: DIANNE Gabapentin (Gabapentin 300 Mg Capsule) 300 mg PO TID [facility] Last Admin: 10/13/21 08:02 Dose: 300 mg Documented by: JEREMY Hydromorphone HCl (Hydromorphone Hcl 2 Mg/Ml Vial) 1.5 mg IVPUSH Q4H PRN; Protocol PRN Reason: Pain, Severe (Pain Scale 7-10) Last Admin: 10/13/21 08:11 Dose: 1.5 mg Documented by: JEREMY Ceftriaxone Sodium 2 gm/ (Sodium Chloride) 50 mls @ 100 mls/hr IV Q24H [facility] Last Infusion: 10/12/21 12:28 Dose: 0 mls/hr Documented by: DIANNE Melatonin (Melatonin 3 Mg Tablet) 6 mg PO BEDTIME PRN PRN Reason: Insomnia Melatonin (Melatonin 3 Mg Tablet) 6 mg PO BEDTIME [facility] Last Admin: 10/12/21 20:28 Dose: 6 mg Documented by: KHANH Methadone HCl (Methadone Hcl 20 Mg/2 Ml Oral.Conc) 45 mg PO DAILY [facility] Last Admin: 10/13/21 08:02 Dose: 45 mg Documented by: JEREMY Nicotine (Nicotine 14 Mg Patch.Td24) 14 mg TRANSDERMA DAILY [facility] Last Admin: 10/13/21 08:01 Dose: 14 mg Documented by: JEREMY Nicotine Polacrilex (Nicotine Polacrilex Lozenge 4 Mg Lozenge) 4 mg BUCCAL Q2H PRN PRN Reason: Nicotine Cravings Last Admin: 10/13/21 08:11 Dose: 4 mg Documented by: JEREMY Pharmacy Consult (Consult Rx Vancomycin Dosing) 1 each MISCELLANE DAILY PRN PRN Reason: Consult order Rivaroxaban (Rivaroxaban 20 Mg Tablet) 20 mg PO DAILY [facility] Last Admin: 10/13/21 08:02 Dose: 20 mg Documented by: JEREMY Senna (Sennosides 8.6 Mg Tablet) 17.2 mg PO BEDTIME PRN PRN Reason: Constipation Sodium Chloride (0.9 % Sodium Chloride Flush 3 Ml Syringe) 3 ml IVFLUSH QSHIFT [facility] Last Admin: 10/12/21 20:49 Dose: 3 ml Documented by: KHANH Labs CBC & Chem 7: 10/11/21 09:33 10/12/21 16:16 Labs: Laboratory Results - last 24 hr 10/12/21 10/12/21 16:16 16:16 Estim Creat Clear Calc 101.8 Estimated GFR > 60 Vancomycin Trough 12.9 Microbiology Microbiology Results: Microbiology 10/10/21 13:53 Blood Culture - Preliminary Blood - Venous No growth after 48 hours. 10/10/21 13:53 Blood Culture - Preliminary Blood - Venous No growth after 48 hours. 10/07/21 23:44 Blood Culture - Final Blood - Venous Streptococcus mitis/oralis Assessment and Plan (1) Polysubstance abuse: Status: Acute (2) Bacteremia: Status: Acute Assessment and Plan: 30-year-old male with a past medical history of IV drug abuse, directed to the lower replacement, recurrent endocarditis, hepatitis-C, history of pulmonary embolism-noncompliant with Xarelto; recent admission to the hospital for endocarditis/streptococcal bacteremia; left AMA on 09/17/21-interrupted antibiotic therapy; has been abusing drugs-cocaine and heroin; presented today to the hospital with a chief complaint of altered mental status. Blood cultures x2 drawn in the ER are now growing Gram-positive cocci. Voicing concerns that he wants to sign out secondary to diffuse bone pain likely secondary to withdrawal 1. Streptococcus bacteremia Continue CTX as per ID blood cultures growing strep meet his sensitive to ceftriaxone id input appreciated, DC vanco and continue with ceftriaxone alone repeated blood culture from 10/10 still negative echo did not show any vegetations MRI cannot be done secondary to epicardial leads to place PICC line on Thursday with plan to discharge on ceftriaxone after that. To confirm the length of treatment of 4-6 weeks with ID. 2. polysubstance abuse Seen by Care Team....dosing methaqdone while in house continue methadone with p.r.n. IV Dilaudid q.4 hours 3. Endocarditis(partially treated) Continue Vanco/CTX until final decision by ID Sosa/Full code Quality Stroke Does the patient have a stroke diagnosis?: No VTE Prior VTE?: No VTE Risk Level:: Medical - moderate - high VTE Device Contraindication: Treatment Not Indicated VTE Drug Contraindication: N/A - Med Ordered
[2021-10-13] MEDS: cefTRIAXone sodium 2 GM in 0.9 % Sodium Chloride 50 ML IV (12:18)
[2021-10-13] MEDS: Acetaminophen 325 MG TABLET 650 MG PO (15:07)
--- NOTE | 2021-10-13 15:09 | MHC.RECOVSUP ---
Recovery Support note: This technical document writer met with patient to discuss methadone dosing and withdrawal symptoms. Patient was resting however easily aroused. Patient reports he is doing OK however reports withdrawal symptoms, specifically chills and weakness. Patient reports poor sleep stating he is waking frequently at night. Discussed case with Tami Luna NP.
[2021-10-13] MEDS: ondansetron HCL 4 MG/2 ML VIAL IVPUSH (17:03)
[2021-10-13] MEDS: methADONE HCl 20 MG/2 ML ORAL.CONC 5 MG PO (18:50)
[2021-10-13] MEDS: Melatonin 3 MG TABLET 6 MG PO (20:34)
[2021-10-13] MEDS: cloNIDine HCL 0.1 MG TABLET PO (23:46)
[2021-10-14] VITALS (8 sets, daily range): BP systolic 79–112; BP diastolic 42–70; PULSE 77–109; RESP 14–20; TEMP 36.2–37; O2SAT 94–96
[2021-10-14] MEDS: HYDROmorphone HCl 2 MG/ML VIAL 1.5 MG IVPUSH ×4 (03:25→21:18)
[2021-10-14] MEDS: Ketorolac Tromethamine 30 MG/ML VIAL 15 MG IVPUSH ×2 (03:26→22:56)
--- NOTE | 2021-10-14 05:49 | PC.NURSE ---
CARE ASSUMED 23:15...AWAKE..ALERT..ORIENTED X3..ANXIOUS AND AGITATED AT TIMES..PER REPORT PATIENT PREVIOUS SWEARING AND ABUSIVE TOWARDS STAFF....REQUESTED IV DILAUDID FOR RIB PAIN AND WITHDRAWL FEELINGS...PRN CLONIDINE GIVEN WITH ONLY SLIGHT EFFECT....HOSPITALIST UPDATED...MD STATED NO PRN OXYCODONE TO BE ORDERED...TORADOL X1 DOSE ORDERED...TORADOL GIVEN LATE D/T NIGHT PHARMACY DELAY IN VERIFYING MED....AWAKE..ALERT...OOB TO BR...INCONTINANT LOOSE BROWN STOOL...PERSONAL CARE ASSISTED...MEDICATED WITH TORADOL X1 AND PRN DILAUDID FOR C/O 8/10 RIB PAIN ON DEEP INSPIRATION AND DIFFUSE BODY ACHES..RESTFUL AFTERWARDS..CURRENTLY DOZING..NO DISTRESS..O2 WEANED OFF WITH STABLE SAO2
[2021-10-14] MEDS: methADONE HCl 20 MG/2 ML ORAL.CONC 50 MG PO (08:12)
[2021-10-14] MEDS: Nicotine 14 MG PATCH.TD24 TRANSDERMA (08:15)
[2021-10-14] MEDS: 0.9 % Sodium Chloride Flush 3 ML SYRINGE IVFLUSH ×3 (08:16→23:50)
[2021-10-14] MEDS: Gabapentin 300 MG CAPSULE PO ×3 (08:16→20:52)
[2021-10-14] MEDS: Rivaroxaban 20 MG TABLET PO (08:20)
[2021-10-14 09:04] LABS: Creatinine Clr Calc Pharmacy 115.3; Estimated Glomerular Filt Rate > 60
[2021-10-14] MEDS: cefTRIAXone sodium 2 GM in 0.9 % Sodium Chloride 50 ML IV (12:23)
--- NOTE | 2021-10-14 15:16 | MHC.CM.PN ---
PER ROUNDS PT READY FOR DC PICC LINE NOT PLACED TILL BED LOCATED ..PT ON METHADONE
--- NOTE | 2021-10-14 15:25 | HO.PM.IMPN ---
Subjective Subjective Date of Service: 10/14/21 Interval History: No acute issues; states withdrawal symptoms are markedly improved Review of Systems denies chest pain Denies shortness of breath Denies nausea vomiting diarrhea Physical Exam Vital Signs: Vital Signs: Last Vital Signs Temp 97.1 F 10/14/21 11:06 Pulse 78 10/14/21 11:06 Resp 14 10/14/21 11:06 BP 109/59 L 10/14/21 11:06 Pulse Ox 94 10/14/21 11:06 BMI result Body Mass Index 24.0 Const: Other: somnolent but arousable no acute distress HENMT: Other: oropharynx clear; membranes moist Resp: Other: clear to auscultation bilaterally no rales rhonchi wheezes Cardio: Other: no S4; positive S1-S2; no S3 murmurs of scalp GI: Other: soft nontender nondistended normoactive bowel sounds Neuro: Other: cranial nerves 2-12 grossly intact as tested. Motor is 5/5 all extremities sensation intact. Cognition appropriate Extrem: Other: no edema bilaterally Objective Data Active Medications Acetaminophen (Acetaminophen 325 Mg Tablet) 650 mg PO Q6H PRN PRN Reason: Pain, Mild (Pain Scale 1-3) Last Admin: 10/13/21 15:07 Dose: 650 mg Documented by: JEREMY Clonidine HCl (Clonidine Hcl 0.1 Mg Tablet) 0.1 mg PO TID PRN; Protocol PRN Reason: anxiety/restlessness Last Admin: 10/13/21 23:46 Dose: 0.1 mg Documented by: GERMAN Gabapentin (Gabapentin 300 Mg Capsule) 300 mg PO TID [facility] Last Admin: 10/14/21 08:16 Dose: 300 mg Documented by: TRAY Hydromorphone HCl (Hydromorphone Hcl 2 Mg/Ml Vial) 1.5 mg IVPUSH Q4H PRN; Protocol PRN Reason: Pain, Severe (Pain Scale 7-10) Last Admin: 10/14/21 10:37 Dose: 1.5 mg Documented by: SAUD Ceftriaxone Sodium 2 gm/ (Sodium Chloride) 50 mls @ 100 mls/hr IV Q24H [facility] [place] Last Infusion: 10/14/21 13:05 Dose: 0 mls/hr Documented by: TRAY Melatonin (Melatonin 3 Mg Tablet) 6 mg PO BEDTIME PRN PRN Reason: Insomnia Melatonin (Melatonin 3 Mg Tablet) 6 mg PO BEDTIME [facility] [place] Last Admin: 10/13/21 20:34 Dose: 6 mg Documented by: ARCADIO Methadone HCl (Methadone Hcl 20 Mg/2 Ml Oral.Conc) 50 mg PO DAILY [facility] [place] Last Admin: 10/14/21 08:12 Dose: 50 mg Documented by: TRAY Nicotine (Nicotine 14 Mg Patch.Td24) 14 mg TRANSDERMA DAILY [facility] [place] Last Admin: 10/14/21 08:15 Dose: 14 mg Documented by: TRAY Nicotine Polacrilex (Nicotine Polacrilex Lozenge 4 Mg Lozenge) 4 mg BUCCAL Q2H PRN PRN Reason: Nicotine Cravings Last Admin: 10/13/21 08:11 Dose: 4 mg Documented by: JEREMY Ondansetron HCl (Ondansetron Hcl 4 Mg/2 Ml Vial) 4 mg IVPUSH Q8H PRN PRN Reason: Nausea and Vomiting Last Admin: 10/13/21 17:03 Dose: 4 mg Documented by: JEREMY Pharmacy Consult (Consult Rx Vancomycin Dosing) 1 each MISCELLANE DAILY PRN PRN Reason: Consult order Rivaroxaban (Rivaroxaban 20 Mg Tablet) 20 mg PO DAILY [facility] [place] Last Admin: 10/14/21 08:20 Dose: 20 mg Documented by: TRAY Senna (Sennosides 8.6 Mg Tablet) 17.2 mg PO BEDTIME PRN PRN Reason: Constipation Sodium Chloride (0.9 % Sodium Chloride Flush 3 Ml Syringe) 3 ml IVFLUSH QSHIFT [facility] Last Admin: 10/14/21 08:16 Dose: 3 ml Documented by: TRAY Labs CBC & Chem 7: 10/11/21 09:33 10/14/21 08:12 Labs: Laboratory Results - last 24 hr 10/14/21 08:12 Estim Creat Clear Calc 115.3 Estimated GFR > 60 Assessment and Plan (1) Endocarditis: Status: Acute (2) Opioid use disorder: Status: Acute (3) Polysubstance abuse: Status: Acute Assessment and Plan: 30-year-old male with a past medical history of IV drug abuse, directed to the lower replacement, recurrent endocarditis, hepatitis-C, history of pulmonary embolism-noncompliant with Xarelto; recent admission to the hospital for endocarditis/streptococcal bacteremia; left AMA on 09/17/21-interrupted antibiotic therapy; has been abusing drugs-cocaine and heroin; presented today to the hospital with a chief complaint of altered mental status. Blood cultures x2 drawn in the ER are now growing Gram-positive cocci. Voicing concerns that he wants to sign out secondary to diffuse bone pain likely secondary to withdrawal 1. Gram-positive bacteremia Continue Vanco/CTX as per ID; PICC line only when bed available Blood Cultures negative Evidence of Tricuspid vegetation on echo MRI cannot be done secondary to epicardial leads 2. PSA Seen by Care Team....dosing methaqdone while in house High risk for outpatient if leaves without treatment once again; continue methadone but will order IV Dilaudid q.4 hours an attempt to keep patient in and complete therapies. 3. Endocarditis(partially treated) Continue Vanco/CTX pending cultures Lovenox/Full code Quality Stroke Does the patient have a stroke diagnosis?: No VTE Prior VTE?: No VTE Risk Level:: Medical - moderate - high VTE Device Contraindication: Treatment Not Indicated VTE Drug Contraindication: N/A - Med Ordered
--- NOTE | 2021-10-14 17:10 | P.PNADD_ITS ---
Subjective Subjective Date of Service: 10/14/21 Reason For Visit: AMS IVDA Bacteremia Interim History: Patient brighter affect with intermittent irritability. Reporting that 5mg of methadone in the evening has been helpful in getting sleep He reported episodes of chills that make me so scared and feel like I can't breathe , discussed different strategies for dealing with anxiety that arises, including deep breathing and refocusing on things in his control such as being able to cover himself with a blanket and not waiting for clinical staff to come in and do it for him--patient receptive to these strategies. He would like to continue titrating methadone--currently at 50mg Review of Systems Medical Review of Systems: unchanged Mental Status Exam Mental Status Exam Patient Appearance: Appropriate Patient Orientation: Person, Place, Time and Situation Level of Consciousness: Awake, Appropriate and Alert Patient Behavior: Appropriate, Talkative, Cooperative and Resistive to Care (per nursing team -refusing labs) Thought Process: Intact, Rumination and Goal Oriented Thought Content: positive for Intact, positive for [place] and positive for Goal Oriented Judgement: Fair Diagnostics Vital Signs (24Hr): Vital Signs - 24 hr 10/13/21 19:03 10/13/21 20:35 10/13/21 23:24 Temperature 98 F Pulse Rate 120 H Respiratory Rate 22 H 18 18 Blood Pressure 105/51 L Pulse Oximetry 92 10/13/21 23:46 10/14/21 03:26 10/14/21 07:16 Temperature 98.6 F 97.3 F Pulse Rate 108 H 109 H 80 Respiratory Rate 20 16 Blood Pressure 112/70 79/42 L Pulse Oximetry 96 95 10/14/21 07:52 10/14/21 11:06 10/14/21 16:00 Temperature 97.1 F 97.9 F Pulse Rate 78 77 Respiratory Rate 14 18 Blood Pressure 101/60 109/59 L 95/57 L Pulse Oximetry 94 96 BMI result Body Mass Index 24.0 Labs Results: 10/17/21 13:49 10/17/21 13:49 Labs: Laboratory Results - last 48 hr 10/14/21 08:12 Creatinine 0.83 Estim Creat Clear Calc 115.3 Estimated GFR > 60 Imaging Radiology Impressions: ITS Impressions Chest X-Ray 10/07/21 20:14 IMPRESSION: No acute cardiopulmonary findings. Head CT 10/08/21 01:20 IMPRESSION: No acute intracranial pathology. Abdomen/Pelvis CT 10/08/21 01:37 IMPRESSION: 1. No acute pulmonary embolism. 2. Continued improvement of lung opacities when compared to the prior study. The largest opacity that remains is seen at the medial left lower lobe. 3. Persistent hilar adenopathy which is likely reactive. 4. Hepatic steatosis with hepatomegaly. Small volume ascites appears slightly increased from prior. VTE: negative Chest CTA 10/08/21 01:37 IMPRESSION: 1. No acute pulmonary embolism. 2. Continued improvement of lung opacities when compared to the prior study. The largest opacity that remains is seen at the medial left lower lobe. 3. Persistent hilar adenopathy which is likely reactive. 4. Hepatic steatosis with hepatomegaly. Small volume ascites appears slightly increased from prior. VTE: negative Medications Medications Current Medications Acetaminophen (Acetaminophen 325 Mg Tablet) 650 mg PO Q6H PRN PRN Reason: Pain, Mild (Pain Scale 1-3) Last Admin: 10/13/21 15:07 Dose: 650 mg Documented by: Clonidine HCl (Clonidine Hcl 0.1 Mg Tablet) 0.1 mg PO TID PRN; Protocol PRN Reason: anxiety/restlessness Last Admin: 10/13/21 23:46 Dose: 0.1 mg Documented by: Gabapentin (Gabapentin 300 Mg Capsule) 300 mg PO TID [facility] Last Admin: 10/14/21 16:24 Dose: 300 mg Documented by: Hydromorphone HCl (Hydromorphone Hcl 2 Mg/Ml Vial) 1.5 mg IVPUSH Q4H PRN; Protocol PRN Reason: Pain, Severe (Pain Scale 7-10) Last Admin: 10/14/21 10:37 Dose: 1.5 mg Documented by: Ceftriaxone Sodium 2 gm/ (Sodium Chloride) 50 mls @ 100 mls/hr IV Q24H [facility] Last Infusion: 10/14/21 13:05 Dose: Infused Documented by: Melatonin (Melatonin 3 Mg Tablet) 6 mg PO BEDTIME PRN PRN Reason: Insomnia Melatonin (Melatonin 3 Mg Tablet) 6 mg PO BEDTIME [facility] Last Admin: 10/13/21 20:34 Dose: 6 mg Documented by: Methadone HCl (Methadone Hcl 20 Mg/2 Ml Oral.Conc) 50 mg PO DAILY [facility] Last Admin: 10/14/21 08:12 Dose: 50 mg Documented by: Nicotine (Nicotine 14 Mg Patch.Td24) 14 mg TRANSDERMA DAILY [facility] Last Admin: 10/14/21 08:15 Dose: 14 mg Documented by: Nicotine Polacrilex (Nicotine Polacrilex Lozenge 4 Mg Lozenge) 4 mg BUCCAL Q2H PRN PRN Reason: Nicotine Cravings Last Admin: 10/13/21 08:11 Dose: 4 mg Documented by: Ondansetron HCl (Ondansetron Hcl 4 Mg/2 Ml Vial) 4 mg IVPUSH Q8H PRN PRN Reason: Nausea and Vomiting Last Admin: 10/13/21 17:03 Dose: 4 mg Documented by: Pharmacy Consult (Consult Rx Vancomycin Dosing) 1 each MISCELLANE DAILY PRN PRN Reason: Consult order Rivaroxaban (Rivaroxaban 20 Mg Tablet) 20 mg PO DAILY [facility] Last Admin: 10/14/21 08:20 Dose: 20 mg Documented by: Senna (Sennosides 8.6 Mg Tablet) 17.2 mg PO BEDTIME PRN PRN Reason: Constipation Sodium Chloride (0.9 % Sodium Chloride Flush 3 Ml Syringe) 3 ml IVFLUSH QSHIFT [facility] Last Admin: 10/14/21 16:24 Dose: 3 ml Documented by: Allergies Allergies Allergy/AdvReac Type Severity Reaction Status Date / Time No Known Allergies Allergy Unverified 07/05/20 15:53 [No Known Allergies*] Assessment & Plan Assessment & Plan (1) Opioid use disorder: Status: Acute Code(s): F11.99 - Opioid use, unspecified with unspecified opioid-induced disorder Assessment and Plan: * EKG * continue to titrate methadone as necessary I spent ____20__ minutes with the patient and/or on the patient floor today, greater than?50% of which was spent counseling/coordinating care.
[2021-10-14] MEDS: Acetaminophen 325 MG TABLET 650 MG PO (17:35)
[2021-10-14] MEDS: Melatonin 3 MG TABLET 6 MG PO (20:52)
--- NOTE | 2021-10-14 21:40 | PC.NURSE ---
Patient reported now to this RN that he has pain to the whole abdomen and even touching the skin is very painful. Patient stated that the pain is going on for few days and that Dilauded doesn't take away the pain. He denied any nausea vomiting,stated that his stools are loose.The whole abdomen is round and firm, positive bowel sounds. Anasarca from the waist down, patient stated that edema is getting worse and he can tell by the cloth getting tighter.Dr Rosas was notified. Patient was medicated with his scheduled Gabapentin and Dilauded PRN
[2021-10-15] VITALS (10 sets, daily range): BP systolic 93–112; BP diastolic 51–64; PULSE 73–88; RESP 18–20; TEMP 36.5–37.3; O2SAT 93–95
[2021-10-15] MEDS: HYDROmorphone HCl 2 MG/ML VIAL 1.5 MG IVPUSH ×4 (01:21→20:23)
[2021-10-15] MEDS: cloNIDine HCL 0.1 MG TABLET PO ×2 (04:20→20:32)
[2021-10-15] MEDS: HYDROmorphone HCl 0.5 MG/0.5 ML SYRINGE IVPUSH (04:41)
[2021-10-15 06:20] LABS: MANUAL DIFF FLAG NO
[2021-10-15 06:25] LABS: Basophils Percent Auto 0.3 % (0-2); Eosinophils Absolute Auto 0.1 X10*3/uL (0.0-0.4); Eosinophils Percent Auto 1.7 % (0-4); Hematocrit 30.9 % (42.0-52.0); Hemoglobin 9.4 g/dl (14.0-18.0); Imm Gran Abs Auto 0.16 X10*3/uL (0.00-0.03); Imm Gran Pct Auto 2.1 % (0.0-0.4); Lymphocytes Percent Auto 25.7 % (20-40); Mean Corpuscular HGB Conc 30.4 g/dl (31.0-36.0); Mean Corpuscular Hemoglobin 24.7 pg (27.0-33.0); Mean Corpuscular Volume 81.1 fL (80.0-98.0); Mean Platelet Volume 11.8 fL (9.4-12.4); Monocytes Absolute Auto 0.7 X10*3/uL (0.1-1.2); Monocytes Percent Auto 9.3 % (2-11); Neutrophils Absolute Auto 4.7 x10*3/uL (2.0-8.3); Neutrophils Percent Auto 60.9 % (45-73); Platelet Count 147 X10*3/uL (160-400); Red Blood Count 3.81 X10*6/uL (4.60-5.80); Red Cell Distribution Width 19.1 % (11.0-16.0); White Blood Count 7.7 X10*3/uL (4.8-10.8)
[2021-10-15] MEDS: methADONE HCl 20 MG/2 ML ORAL.CONC 50 MG PO (07:50)
[2021-10-15] MEDS: 0.9 % Sodium Chloride Flush 3 ML SYRINGE IVFLUSH ×3 (07:50→20:23)
[2021-10-15] MEDS: Rivaroxaban 20 MG TABLET PO (07:51)
[2021-10-15] MEDS: Nicotine 14 MG PATCH.TD24 TRANSDERMA (07:51)
[2021-10-15] MEDS: Gabapentin 300 MG CAPSULE PO ×3 (07:51→20:22)
[2021-10-15 08:06] LABS: Alanine Aminotransferase 19 U/L (0-40); Albumin Level 2.8 g/dL (3.5-5.0); Alkaline Phosphatase 211 U/L (39-117); Anion Gap 10 (12-20); Aspartate Amino Transferase 24 U/L (5-37); Bilirubin Total 0.5 mg/dL (0.0-1.0); Blood Urea Nitrogen 22 mg/dL (9-16); Calcium 8.9 mg/dL (8.4-10.2); Carbon Dioxide 24 mmol/L (22-29); Chloride 110 mmol/L (96-108); Creatinine Clr Calc Pharmacy 98.6; Estimated Glomerular Filt Rate > 60; Glucose Fasting 81 mg/dL (60-99); Potassium 5.4 mmol/L (3.3-5.1); Sodium 138 mmol/L (135-145); Total Protein 6.2 g/dL (6.5-8.0)
--- NOTE | 2021-10-15 12:14 | MHC.CDI.CONC ---
CDI Concurrent Query Documentation Clarification: PHYSICIAN'S DOCUMENTATION REQUEST Date of Query: 10/15/21 1215 Patient Name: Norberto Marquez Admit Date: 10/08/21 Dear Doctor, A review of the medical record indicates additional documentation may be needed. Please review below and update the documentation accordingly. Risk Factors/Clinical Indicators/Treatments Patient left AMA 09/17 with having been treated for Sepsis/endocarditis with interrupted antibiotic treatment, noncompliant with antibiotics course. Presented today with altered mental status, found to have toxic metabolic encephalopathy in the setting of IV substance abuse. WBC 26 RR 22 HR 130 broad spectrum IV antibiotics - Admit. Micro: 10/07 - Streptococcal mitis/oralis x 2 Based on the above, could you clarify in the Progress Notes the appropriate diagnosis, if significant, that supports the above abnormalities and additional evaluation, monitoring, and/or treatment rendered: Sepsis (streptococcal) due to recurrent/untreated Endocarditis/Bacteremia (POA) Endocarditis/streptococcal bacteremia Other (please specify) Unable to determine Use of terms such as suspected, likely, concern for, or probable (associated with a specific diagnosis that is being evaluated, monitored, or treated as if it exists) are acceptable and can be coded in the inpatient setting, when documented at the time of discharge. Thank you, America Ayala [facility], CDIS Extension: [phone] Please use your independent medical judgment in providing your response. THIS QUERY IS PART OF THE PERMANENT MEDICAL RECORD Provider Response: Other Other Diagnosis: Sepsis due to recurrent untreated endocarditis and bacteremia
[2021-10-15] MEDS: cefTRIAXone sodium 2 GM in 0.9 % Sodium Chloride 50 ML IV (12:24)
--- NOTE | 2021-10-15 12:45 | PC.NURSE ---
Patient transferred to CT SCAN
[2021-10-15] MEDS: iohexoL 350 MG/ML 100 ML INFUS..BTL IV (13:27)
--- NOTE | 2021-10-15 15:44 | P.PNIM_ITS ---
Subjective Subjective Date of Service: 10/15/21 Interval History: No acute issues overnight. Complains of mild abdominal pain Review of Systems Denies chest pain Denies shortness of breath Denies nausea vomiting diarrhea Physical Exam Vital Signs: Vital Signs: Last Vital Signs Temp 98.7 F 10/15/21 15:23 Pulse 78 10/15/21 15:23 Resp 20 10/15/21 15:23 BP 99/56 L 10/15/21 15:23 Pulse Ox 95 10/15/21 15:23 BMI result Body Mass Index 24.0 Const: Other: somnolent but arousable no acute distress HENMT: Other: oropharynx clear; membranes moist Resp: Other: clear to auscultation bilaterally no rales rhonchi wheezes Cardio: Other: no S4; positive S1-S2; no S3 murmurs of scalp GI: Other: soft nontender nondistended normoactive bowel sounds Neuro: Other: cranial nerves 2-12 grossly intact as tested. Motor is 5/5 all extremities sensation intact. Cognition appropriate Extrem: Other: no edema bilaterally Objective Data Active Medications Acetaminophen (Acetaminophen 325 Mg Tablet) 650 mg PO Q6H PRN PRN Reason: Pain, Mild (Pain Scale 1-3) Last Admin: 10/14/21 17:35 Dose: 650 mg Documented by: JIMBO Clonidine HCl (Clonidine Hcl 0.1 Mg Tablet) 0.1 mg PO TID PRN; Protocol PRN Reason: anxiety/restlessness Last Admin: 10/15/21 04:20 Dose: 0.1 mg Documented by: QIAN Gabapentin (Gabapentin 300 Mg Capsule) 300 mg PO TID [facility] Last Admin: 10/15/21 15:06 Dose: 300 mg Documented by: TRAY Hydromorphone HCl (Hydromorphone Hcl 2 Mg/Ml Vial) 1.5 mg IVPUSH Q4H PRN; Protocol PRN Reason: Pain, Severe (Pain Scale 7-10) Last Admin: 10/15/21 15:18 Dose: 1.5 mg Documented by: TRAY Ceftriaxone Sodium 2 gm/ (Sodium Chloride) 50 mls @ 100 mls/hr IV Q24H [facility] Last Infusion: 10/15/21 13:39 Dose: 0 mls/hr Documented by: TRAY Melatonin (Melatonin 3 Mg Tablet) 6 mg PO BEDTIME PRN PRN Reason: Insomnia Melatonin (Melatonin 3 Mg Tablet) 6 mg PO BEDTIME [facility] Last Admin: 10/14/21 20:52 Dose: 6 mg Documented by: JIMBO Methadone HCl (Methadone Hcl 20 Mg/2 Ml Oral.Conc) 50 mg PO DAILY [facility] Last Admin: 10/15/21 07:50 Dose: 50 mg Documented by: TRAY Comments: Nicotine (Nicotine 14 Mg Patch.Td24) 14 mg TRANSDERMA DAILY [facility] Last Admin: 10/15/21 07:51 Dose: 14 mg Documented by: TRAY Nicotine Polacrilex (Nicotine Polacrilex Lozenge 4 Mg Lozenge) 4 mg BUCCAL Q2H PRN PRN Reason: Nicotine Cravings Last Admin: 10/13/21 08:11 Dose: 4 mg Documented by: JEREMY Ondansetron HCl (Ondansetron Hcl 4 Mg/2 Ml Vial) 4 mg IVPUSH Q8H PRN PRN Reason: Nausea and Vomiting Last Admin: 10/13/21 17:03 Dose: 4 mg Documented by: JEREMY Rivaroxaban (Rivaroxaban 20 Mg Tablet) 20 mg PO DAILY [facility] Last Admin: 10/15/21 07:51 Dose: 20 mg Documented by: TRAY Senna (Sennosides 8.6 Mg Tablet) 17.2 mg PO BEDTIME PRN PRN Reason: Constipation Sodium Chloride (0.9 % Sodium Chloride Flush 3 Ml Syringe) 3 ml IVFLUSH QSHIFT [facility] Last Admin: 10/15/21 15:06 Dose: 3 ml Documented by: TRAY Labs CBC & Chem 7: 10/15/21 06:06 10/15/21 06:06 Labs: Laboratory Results - last 24 hr 10/15/21 10/15/21 06:06 06:06 MCV 81.1 MCH 24.7 L MCHC 30.4 L RDW 19.1 H Plt Count 147 L MPV 11.8 Immature Gran % (Auto) 2.1 H Neut % (Auto) 60.9 Lymph % (Auto) 25.7 [place] % (Auto) 9.3 Eos % (Auto) 1.7 Baso % (Auto) 0.3 Lymph # (Auto) 2.0 [place] # (Auto) 0.7 Eos # (Auto) 0.1 Baso # (Auto) 0.0 Abs Immat Gran (auto) 0.16 H Absolute Neuts (auto) 4.7 Absolute Nucleated RBC 0.000 Nucleated RBC % (auto) 0.0 Anion Gap 10 L Estim Creat Clear Calc 98.6 Estimated GFR > 60 Fasting Glucose 81 Calcium 8.9 D Total Bilirubin 0.5 AST 24 ALT 19 Alkaline Phosphatase 211 H Total Protein 6.2 L Albumin 2.8 L Assessment and Plan (1) Polysubstance abuse: Status: Acute (2) Endocarditis: Status: Acute Assessment and Plan: 30-year-old male with a past medical history of IV drug abuse, directed to the lower replacement, recurrent endocarditis, hepatitis-C, history of pulmonary embolism-noncompliant with Xarelto; recent admission to the hospital for endocarditis/streptococcal bacteremia; left AMA on 09/17/21-interrupted antibiotic therapy; has been abusing drugs-cocaine and heroin; presented today to the hospital with a chief complaint of altered mental status. Blood cultures x2 drawn in the ER are now growing Gram-positive cocci. 1. Gram-positive bacteremia Continue Vanco/CTX as per ID; PICC line only when bed available Evidence of Tricuspid vegetation on echo MRI cannot be done secondary to epicardial leads 2. PSA Seen by Care Team....dosing methaqdone while in house High risk for outpatient if leaves without treatment once again; continue methadone but will order IV Dilaudid q.4 hours an attempt to keep patient in and complete therapies. 3. Endocarditis(partially treated) Continue Vanco/CTX pending cultures Lovenox/Full code Quality Stroke Does the patient have a stroke diagnosis?: No VTE Prior VTE?: No VTE Risk Level:: Medical - moderate - high VTE Device Contraindication: Treatment Not Indicated VTE Drug Contraindication: N/A - Med Ordered
[2021-10-15] MEDS: Melatonin 3 MG TABLET 6 MG PO (20:22)
[2021-10-15] MEDS: Magnesium Hydrox/Alum Hydrox 30 ML ORAL.SUSP 15 ML PO (22:19)
[2021-10-15] MEDS: Acetaminophen 325 MG TABLET 650 MG PO (22:27)
--- NOTE | 2021-10-15 22:37 | PC.NURSE ---
pt stated he felt like he had heart burn. notified. Maalox PRN ordered. When this RN went to administer medication pt was sleeping. When attempted to wake he became very agitated asking why he was being woken up. This RN let him know that he had medication available when he wanted it. He stated just give me the fucking medication. I'm sick of this. I'm sick and you aren't doing anything about it. pt educated how to properly speak to staff without being belligerent or using expletives. He then stated he felt like he had a fever, temp taken 96.0 oral. Pt requested PRN Tylenol, and a cup of warm milk. When brought the medication and milk he again became agitated saying are you stupid? you can't even warm up milk right? I'm sick you don't care. PT educated when he wants to speak in a calm tone this RN will come back.
[2021-10-16] MEDS: HYDROmorphone HCl 2 MG/ML VIAL 1.5 MG IVPUSH ×6 (00:16→21:40)
[2021-10-16 03:09] VITALS: BP 90/53; PULSE 76; RESP 15; TEMP 36.8; O2SAT 96
--- NOTE | 2021-10-16 05:24 | PC.NURSE ---
pt has asked for pain medication multiple times after receiving PRN dose of dilaudid less than one hour ago. Pt will wake up and become agitated demanding the dilaudid, and not believing this RN when it is stated he already received the medication despite it being written on the white board when it was last given and being alert and awake during medication administration. Pt very agitated stating I'm not going to keep asking for my damn pain medication. Give it to me now . PT educated again on how to speak appropriately towards staff, and that the dilaudid is as needed q4hr.
--- NOTE | 2021-10-16 06:11 | PC.NURSE ---
pt refusing am lab draw
[2021-10-16 07:07] VITALS: BP 98/63; PULSE 71; RESP 16; TEMP 35.5; O2SAT 96
[2021-10-16] MEDS: methADONE HCl 20 MG/2 ML ORAL.CONC 50 MG PO (08:50)
[2021-10-16] MEDS: Gabapentin 300 MG CAPSULE PO ×3 (08:50→20:43)
[2021-10-16] MEDS: Rivaroxaban 20 MG TABLET PO (08:50)
[2021-10-16] MEDS: Nicotine 14 MG PATCH.TD24 TRANSDERMA (08:50)
[2021-10-16] MEDS: 0.9 % Sodium Chloride Flush 3 ML SYRINGE IVFLUSH ×3 (08:51→20:44)
[2021-10-16 10:51] VITALS: BP 122/58; PULSE 78; RESP 20; TEMP 36.6; O2SAT 96
--- NOTE | 2021-10-16 12:56 | HO.PM.IMPN ---
Subjective Subjective Date of Service: 10/16/21 Interval History: No acute issues overnight. .. More agitated this morning and speaking of signing out AMA despite warnings Review of Systems Denies chest pain Denies shortness of breath Denies nausea vomiting diarrhea Physical Exam Vital Signs: Vital Signs: Last Vital Signs Temp 98 F 10/16/21 10:51 Pulse 78 10/16/21 10:51 Resp 20 10/16/21 10:51 BP 122/58 L 10/16/21 10:51 Pulse Ox 96 10/16/21 10:51 BMI result Body Mass Index 24.0 Const: Other: somnolent but arousable no acute distress HENMT: Other: oropharynx clear; membranes moist Resp: Other: clear to auscultation bilaterally no rales rhonchi wheezes Cardio: Other: no S4; positive S1-S2; no S3 murmurs of scalp GI: Other: soft nontender nondistended normoactive bowel sounds Neuro: Other: cranial nerves 2-12 grossly intact as tested. Motor is 5/5 all extremities sensation intact. Cognition appropriate Extrem: Other: no edema bilaterally Objective Data Active Medications Acetaminophen (Acetaminophen 325 Mg Tablet) 650 mg PO Q6H PRN PRN Reason: Pain, Mild (Pain Scale 1-3) Last Admin: 10/15/21 22:27 Dose: 650 mg Documented by: JANELLE Al Hydroxide/Mg Hydroxide (Magnesium Hydrox/Alum Hydrox 30 Ml Oral.Susp) 15 ml PO Q6H PRN PRN Reason: heartburn Last Admin: 10/15/21 22:19 Dose: 15 ml Documented by: JANELLE Clonidine HCl (Clonidine Hcl 0.1 Mg Tablet) 0.1 mg PO TID PRN; Protocol PRN Reason: anxiety/restlessness Last Admin: 10/15/21 20:32 Dose: 0.1 mg Documented by: JANELLE Gabapentin (Gabapentin 300 Mg Capsule) 300 mg PO TID [facility] Last Admin: 10/16/21 08:50 Dose: 300 mg Documented by: BROB Hydromorphone HCl (Hydromorphone Hcl 2 Mg/Ml Vial) 1.5 mg IVPUSH Q4H PRN; Protocol PRN Reason: Pain, Severe (Pain Scale 7-10) Last Admin: 10/16/21 08:59 Dose: 1.5 mg Documented by: LORI Ceftriaxone Sodium 2 gm/ (Sodium Chloride) 50 mls @ 100 mls/hr IV Q24H [facility] Last Infusion: 10/15/21 13:39 Dose: 0 mls/hr Documented by: TRAY Melatonin (Melatonin 3 Mg Tablet) 6 mg PO BEDTIME PRN PRN Reason: Insomnia Melatonin (Melatonin 3 Mg Tablet) 6 mg PO BEDTIME [facility] Last Admin: 10/15/21 20:22 Dose: 6 mg Documented by: JANELLE Methadone HCl (Methadone Hcl 20 Mg/2 Ml Oral.Conc) 50 mg PO DAILY [facility] Last Admin: 10/16/21 08:50 Dose: 50 mg Documented by: LORI Comments: Nicotine (Nicotine 14 Mg Patch.Td24) 14 mg TRANSDERMA DAILY [facility] Last Admin: 10/16/21 08:50 Dose: 14 mg Documented by: LORI Nicotine Polacrilex (Nicotine Polacrilex Lozenge 4 Mg Lozenge) 4 mg BUCCAL Q2H PRN PRN Reason: Nicotine Cravings Last Admin: 10/13/21 08:11 Dose: 4 mg Documented by: JEREMY Ondansetron HCl (Ondansetron Hcl 4 Mg/2 Ml Vial) 4 mg IVPUSH Q8H PRN PRN Reason: Nausea and Vomiting Last Admin: 10/13/21 17:03 Dose: 4 mg Documented by: JEREMY Rivaroxaban (Rivaroxaban 20 Mg Tablet) 20 mg PO DAILY [facility] Last Admin: 10/16/21 08:50 Dose: 20 mg Documented by: LORI Senna (Sennosides 8.6 Mg Tablet) 17.2 mg PO BEDTIME PRN PRN Reason: Constipation Sodium Chloride (0.9 % Sodium Chloride Flush 3 Ml Syringe) 3 ml IVFLUSH QSHIFT [facility] Last Admin: 10/16/21 08:51 Dose: 3 ml Documented by: LORI Labs CBC & Chem 7: 10/15/21 06:06 10/15/21 06:06 Microbiology Microbiology Results: Microbiology 10/10/21 13:53 Blood Culture - Final Blood - Venous No growth after 5 days. 10/10/21 13:53 Blood Culture - Final Blood - Venous No growth after 5 days. Assessment and Plan (1) Endocarditis: Status: Acute (2) Polysubstance abuse: Status: Acute Assessment and Plan: 30-year-old male with a past medical history of IV drug abuse, directed to the lower replacement, recurrent endocarditis, hepatitis-C, history of pulmonary embolism-noncompliant with Xarelto; recent admission to the hospital for endocarditis/streptococcal bacteremia; left AMA on 09/17/21-interrupted antibiotic therapy; has been abusing drugs-cocaine and heroin; presented today to the hospital with a chief complaint of altered mental status. Blood cultures x2 drawn 10/10/21 ... No growth x5 days 1. Gram-positive bacteremia Continue Vanco/CTX as per ID; PICC line only when bed available Evidence of Tricuspid vegetation on echo 2. PSA Seen by Care Team....dosing methaqdone while in house High risk for outpatient if leaves without treatment once again; continue methadone but will order IV Dilaudid q.4 hours an attempt to keep patient in and complete therapies. Agitated this a.m. and intermittently threatening to sign out AMA despite warnings 3. Endocarditis(partially treated) Continue Vanco/CTX pending cultures Lovenox/Full code Quality Stroke Does the patient have a stroke diagnosis?: No VTE Prior VTE?: No VTE Risk Level:: Medical - moderate - high VTE Device Contraindication: Treatment Not Indicated VTE Drug Contraindication: N/A - Med Ordered
[2021-10-16] MEDS: cefTRIAXone sodium 2 GM in 0.9 % Sodium Chloride 50 ML IV (13:24)
[2021-10-16 14:18] LABS: MANUAL DIFF FLAG NO
[2021-10-16 14:23] LABS: Basophils Percent Auto 0.3 % (0-2); Eosinophils Absolute Auto 0.1 X10*3/uL (0.0-0.4); Eosinophils Percent Auto 1.4 % (0-4); Hematocrit 31.5 % (42.0-52.0); Hemoglobin 9.6 g/dl (14.0-18.0); Imm Gran Abs Auto 0.15 X10*3/uL (0.00-0.03); Lymphocytes Absolute Auto 1.9 X10*3/uL (1.2-4.9); Lymphocytes Percent Auto 24.8 % (20-40); Mean Corpuscular HGB Conc 30.5 g/dl (31.0-36.0); Mean Corpuscular Hemoglobin 24.9 pg (27.0-33.0); Mean Corpuscular Volume 81.6 fL (80.0-98.0); Mean Platelet Volume 10.8 fL (9.4-12.4); Monocytes Absolute Auto 0.6 X10*3/uL (0.1-1.2); Monocytes Percent Auto 7.8 % (2-11); Neutrophils Absolute Auto 4.9 x10*3/uL (2.0-8.3); Neutrophils Percent Auto 63.7 % (45-73); Platelet Count 168 X10*3/uL (160-400); Red Blood Count 3.86 X10*6/uL (4.60-5.80); Red Cell Distribution Width 19.6 % (11.0-16.0); White Blood Count 7.7 X10*3/uL (4.8-10.8)
[2021-10-16 14:50] LABS: Alanine Aminotransferase 22 U/L (0-40); Alkaline Phosphatase 229 U/L (39-117); Anion Gap 13 (12-20); Aspartate Amino Transferase 27 U/L (5-37); Bilirubin Total 0.6 mg/dL (0.0-1.0); Blood Urea Nitrogen 17 mg/dL (9-16); Calcium 8.8 mg/dL (8.4-10.2); Carbon Dioxide 22 mmol/L (22-29); Chloride 109 mmol/L (96-108); Creatinine Clr Calc Pharmacy 115.3; Estimated Glomerular Filt Rate > 60; Glucose Fasting 108 mg/dL (60-99); Sodium 139 mmol/L (135-145); Total Protein 6.5 g/dL (6.5-8.0)
[2021-10-16 14:55] VITALS: BP 98/59; PULSE 78; RESP 20; TEMP 37.2; O2SAT 96
[2021-10-16] MEDS: oxyCODONE HCl Immed Release 5 MG TABLET 10 MG PO (16:01)
[2021-10-16 19:03] VITALS: BP 100/62; PULSE 79; RESP 20; TEMP 36.7; O2SAT 97
[2021-10-16] MEDS: Melatonin 3 MG TABLET 6 MG PO (20:43)
[2021-10-16] MEDS: Nicotine Polacrilex Lozenge 4 MG LOZENGE BUCCAL (20:43)
[2021-10-16 21:40] VITALS: RESP 20
[2021-10-17] MEDS: Acetaminophen 325 MG TABLET 650 MG PO (00:57)
[2021-10-17 02:08] VITALS: RESP 18
[2021-10-17] MEDS: HYDROmorphone HCl 2 MG/ML VIAL 1.5 MG IVPUSH ×4 (02:08→14:58)
[2021-10-17] MEDS: ondansetron HCL 4 MG/2 ML VIAL IVPUSH (02:16)
[2021-10-17 02:54] VITALS: BP 119/73; PULSE 94; RESP 18; O2SAT 98
[2021-10-17 05:50] VITALS: RESP 18
[2021-10-17 07:59] VITALS: BP 101/64; PULSE 74; RESP 20; TEMP 36.4; O2SAT 97
[2021-10-17] MEDS: 0.9 % Sodium Chloride Flush 3 ML SYRINGE IVFLUSH (09:18)
[2021-10-17] MEDS: methADONE HCl 20 MG/2 ML ORAL.CONC 50 MG PO (09:19)
[2021-10-17] MEDS: Rivaroxaban 20 MG TABLET PO (09:20)
[2021-10-17] MEDS: Gabapentin 300 MG CAPSULE PO ×2 (09:20→14:55)
[2021-10-17] MEDS: Nicotine 14 MG PATCH.TD24 TRANSDERMA (09:21)
[2021-10-17 11:36] VITALS: BP 110/65; PULSE 84; RESP 20; TEMP 36.8; O2SAT 94
[2021-10-17] MEDS: cefTRIAXone sodium 2 GM in 0.9 % Sodium Chloride 50 ML IV (12:45)
[2021-10-17 14:11] LABS: MANUAL DIFF FLAG NO
[2021-10-17 14:15] LABS: Basophils Percent Auto 0.4 % (0-2); Eosinophils Absolute Auto 0.1 X10*3/uL (0.0-0.4); Eosinophils Percent Auto 1.5 % (0-4); Hematocrit 31.9 % (42.0-52.0); Hemoglobin 9.6 g/dl (14.0-18.0); Imm Gran Abs Auto 0.11 X10*3/uL (0.00-0.03); Imm Gran Pct Auto 1.5 % (0.0-0.4); Lymphocytes Percent Auto 27.5 % (20-40); Mean Corpuscular HGB Conc 30.1 g/dl (31.0-36.0); Mean Corpuscular Hemoglobin 24.7 pg (27.0-33.0); Mean Platelet Volume 11.3 fL (9.4-12.4); Monocytes Absolute Auto 0.8 X10*3/uL (0.1-1.2); Monocytes Percent Auto 10.3 % (2-11); Neutrophils Absolute Auto 4.4 x10*3/uL (2.0-8.3); Neutrophils Percent Auto 58.8 % (45-73); Platelet Count 179 X10*3/uL (160-400); Red Blood Count 3.89 X10*6/uL (4.60-5.80); Red Cell Distribution Width 19.7 % (11.0-16.0); White Blood Count 7.4 X10*3/uL (4.8-10.8)
[2021-10-17 14:34] LABS: Alanine Aminotransferase 29 U/L (0-40); Alkaline Phosphatase 274 U/L (39-117); Anion Gap 9 (12-20); Aspartate Amino Transferase 35 U/L (5-37); Bilirubin Total 0.7 mg/dL (0.0-1.0); Blood Urea Nitrogen 15 mg/dL (9-16); Calcium 8.8 mg/dL (8.4-10.2); Carbon Dioxide 26 mmol/L (22-29); Chloride 108 mmol/L (96-108); Creatinine Clr Calc Pharmacy 112.5; Estimated Glomerular Filt Rate > 60; Glucose Fasting 111 mg/dL (60-99); Potassium 4.7 mmol/L (3.3-5.1); Sodium 138 mmol/L (135-145); Total Protein 6.8 g/dL (6.5-8.0)
--- NOTE | 2021-10-17 14:45 | MHC.RECOVRN ---
Check in with pt in 450. Pt states I've been telling them for 5 days. My stomach hurts and it's going down my legs. Pt also reporting new pain during inspiration. Pt states I'm not trying to go bro but I'm not staying here in pain either. Pt respectful with t/w and engaged in conversation. Pt would like to have pain addressed and continue treatment in the hospital. Discussed with Tami Luna APRN. Will continue to follow.
--- NOTE | 2021-10-17 14:48 | HO.PM.IMPN ---
Subjective Subjective Date of Service: 10/17/21 Interval History: And no acute issue overnight. Agitated at times Review of Systems Denies chest pain Denies shortness of breath Denies nausea vomiting diarrhea Physical Exam Vital Signs: Vital Signs: Last Vital Signs Temp 98.2 F 10/17/21 11:36 Pulse 84 10/17/21 11:36 Resp 20 10/17/21 11:36 BP 110/65 10/17/21 11:36 Pulse Ox 94 10/17/21 11:36 BMI result Body Mass Index 24.0 Const: Other: somnolent but arousable no acute distress HENMT: Other: oropharynx clear; membranes moist Resp: Other: clear to auscultation bilaterally no rales rhonchi wheezes Cardio: Other: no S4; positive S1-S2; no S3 murmurs of scalp GI: Other: soft nontender nondistended normoactive bowel sounds Neuro: Other: cranial nerves 2-12 grossly intact as tested. Motor is 5/5 all extremities sensation intact. Cognition appropriate Extrem: Other: no edema bilaterally Objective Data Active Medications Acetaminophen (Acetaminophen 325 Mg Tablet) 650 mg PO Q6H PRN PRN Reason: Pain, Mild (Pain Scale 1-3) Last Admin: 10/17/21 00:57 Dose: 650 mg Documented by: MARIAH Al Hydroxide/Mg Hydroxide (Magnesium Hydrox/Alum Hydrox 30 Ml Oral.Susp) 15 ml PO Q6H PRN PRN Reason: heartburn Last Admin: 10/15/21 22:19 Dose: 15 ml Documented by: JANELLE Clonidine HCl (Clonidine Hcl 0.1 Mg Tablet) 0.1 mg PO TID PRN; Protocol PRN Reason: anxiety/restlessness Last Admin: 10/15/21 20:32 Dose: 0.1 mg Documented by: JANELLE Gabapentin (Gabapentin 300 Mg Capsule) 300 mg PO TID CRISTINA Last Admin: 10/17/21 09:20 Dose: 300 mg Documented by: HARRY Hydromorphone HCl (Hydromorphone Hcl 2 Mg/Ml Vial) 1.5 mg IVPUSH Q4H PRN; Protocol PRN Reason: Pain, Severe (Pain Scale 7-10) Last Admin: 10/17/21 10:10 Dose: 1.5 mg Documented by: HARRY Ceftriaxone Sodium 2 gm/ (Sodium Chloride) 50 mls @ 100 mls/hr IV Q24H [facility] Last Infusion: 10/17/21 13:54 Dose: 0 mls/hr Documented by: LEEANNE Melatonin (Melatonin 3 Mg Tablet) 6 mg PO BEDTIME PRN PRN Reason: Insomnia Melatonin (Melatonin 3 Mg Tablet) 6 mg PO BEDTIME [facility] Last Admin: 10/16/21 20:43 Dose: 6 mg Documented by: MARIAH Methadone HCl (Methadone Hcl 20 Mg/2 Ml Oral.Conc) 50 mg PO DAILY [facility] Last Admin: 10/17/21 09:19 Dose: 50 mg Documented by: HARRY Nicotine (Nicotine 14 Mg Patch.Td24) 14 mg TRANSDERMA DAILY [facility] Last Admin: 10/17/21 09:21 Dose: 14 mg Documented by: HARRY Nicotine Polacrilex (Nicotine Polacrilex Lozenge 4 Mg Lozenge) 4 mg BUCCAL Q2H PRN PRN Reason: Nicotine Cravings Last Admin: 10/16/21 20:43 Dose: 4 mg Documented by: MARIAH Ondansetron HCl (Ondansetron Hcl 4 Mg/2 Ml Vial) 4 mg IVPUSH Q8H PRN PRN Reason: Nausea and Vomiting Last Admin: 10/17/21 02:16 Dose: 4 mg Documented by: MARIAH Rivaroxaban (Rivaroxaban 20 Mg Tablet) 20 mg PO DAILY [facility] Last Admin: 10/17/21 09:20 Dose: 20 mg Documented by: HARRY Senna (Sennosides 8.6 Mg Tablet) 17.2 mg PO BEDTIME PRN PRN Reason: Constipation Sodium Chloride (0.9 % Sodium Chloride Flush 3 Ml Syringe) 3 ml IVFLUSH QSHIFT [facility] Last Admin: 10/17/21 09:18 Dose: 3 ml Documented by: HARRY Labs CBC & Chem 7: 10/17/21 13:49 10/17/21 13:49 Labs: Laboratory Results - last 24 hr 10/16/21 10/17/21 10/17/21 14:10 13:49 13:49 MCV 82.0 MCH 24.7 L MCHC 30.1 L RDW 19.7 H Plt Count 179 MPV 11.3 Immature Gran % (Auto) 1.5 H Neut % (Auto) 58.8 Lymph % (Auto) 27.5 [place] % (Auto) 10.3 Eos % (Auto) 1.5 Baso % (Auto) 0.4 Lymph # (Auto) 2.0 [place] # (Auto) 0.8 Eos # (Auto) 0.1 Baso # (Auto) 0.0 Abs Immat Gran (auto) 0.11 H Absolute Neuts (auto) 4.4 Absolute Nucleated RBC 0.000 Nucleated RBC % (auto) 0.0 Anion Gap 13 9 L Estim Creat Clear Calc 115.3 112.5 Estimated GFR > 60 > 60 Fasting Glucose 108 H 111 H Calcium 8.8 8.8 Total Bilirubin 0.6 0.7 AST 27 35 ALT 22 29 Alkaline Phosphatase 229 H 274 H Total Protein 6.5 6.8 Albumin 3.0 L 3.0 L Assessment and Plan (1) Polysubstance abuse: Status: Acute (2) Endocarditis: Status: Acute (3) Bacteremia: Status: Acute Assessment and Plan: 30-year-old male with a past medical history of IV drug abuse, directed to the lower replacement, recurrent endocarditis, hepatitis-C, history of pulmonary embolism-noncompliant with Xarelto; recent admission to the hospital for endocarditis/streptococcal bacteremia; left AMA on 09/17/21-interrupted antibiotic therapy; has been abusing drugs-cocaine and heroin; presented today to the hospital with a chief complaint of altered mental status. Blood cultures x2 drawn 10/10/21 ... No growth x5 days. Awaiting placement 1. Gram-positive bacteremia Continue CTX(10) as per ID; PICC line only when bed available Evidence of Tricuspid vegetation on echo 2. PSA Seen by Care Team....dosing methaqdone while in house High risk for outpatient if leaves without treatment once again; continue methadone but will order IV Dilaudid q.4 hours an attempt to keep patient in and complete therapies. Agitated this a.m. and intermittently threatening to sign out AMA despite warnings 3. Endocarditis(partially treated) Continue Vanco/CTX pending cultures 4. Abdominal/Hip pain CT abdomen pelvis negative for acute pathology Encouraged ambulation Lovenox/Full code Quality Stroke Does the patient have a stroke diagnosis?: No VTE Prior VTE?: No VTE Risk Level:: Medical - moderate - high VTE Device Contraindication: Treatment Not Indicated VTE Drug Contraindication: N/A - Med Ordered
[2021-10-17 14:58] VITALS: RESP 16
--- NOTE | 2021-10-17 17:50 | PC.NURSE ---
Pt complained of poor service and threatened to leave the whole shift ([phone]) due to not having his pain managed to his liking. Pt understands that there is a scheduled PRN dose that needs to be followed for narcotic analgesics, however continues to ask for it to move up the next dose or he'll leave. Physician notified
--- NOTE | 2021-10-17 18:19 | PC.NURSE ---
@ 1819 pt became more irate and began shouting profanities. Attending and RN supervisor [employer] Mark involved. Pt requested his last dose letter signed and IV pulled; which was done after pt signed AMA paperwork. Pt denies having a safe ride home, but wants to be discharged back to the street. Pt is A&O x4 at this time and verbalizes understanding of the risk including or serious disability
--- NOTE | 2021-10-17 18:35 | P.PNADD_ITS ---
Subjective Subjective Date of Service: 10/17/21 Reason For Visit: AMS IVDA Bacteremia Interim History: Patient reportedly irritable and disrespectful to numerous clinical staff Using profanity often and stating numerous times he wanted to sign out AMA When seen by this customs entry writer, patient appropriate Numerous complaints regarding his care --processed through these issues with patient. Patient acknowledging that he has been getting needs met, but continues to feel frustrated This customs entry writer discussed cravings and how they present at times like irritability and feeling that pain is not being managed, and possibly looking for reasons to leave treatment. Patient verbalized understanding, but was still considering leaving. At the time this customs entry writer left patient's room, he was stating that he would likely stay Review of Systems Medical Review of Systems: unchanged Mental Status Exam Mental Status Exam Patient Appearance: Appropriate Patient Orientation: Person, Place, Time and Situation Level of Consciousness: Awake, Appropriate and Alert Patient Behavior: Appropriate, Talkative, Cooperative and Resistive to Care Thought Process: Intact and Rumination Thought Content: positive for Intact and positive for [place] Judgement: Fair Diagnostics Vital Signs (24Hr): Vital Signs - 24 hr 10/16/21 19:03 10/16/21 21:40 10/17/21 02:08 Temperature 98.1 F Pulse Rate 79 Respiratory Rate 20 20 18 Blood Pressure 100/62 Pulse Oximetry 97 10/17/21 02:54 10/17/21 05:50 10/17/21 07:59 Temperature 97.6 F Pulse Rate 94 74 Respiratory Rate 18 18 20 Blood Pressure 119/73 101/64 Pulse Oximetry 98 97 10/17/21 11:36 10/17/21 14:58 Temperature 98.2 F Pulse Rate 84 Respiratory Rate 20 16 Blood Pressure 110/65 Pulse Oximetry 94 BMI result Body Mass Index 24.0 Labs Results: 10/17/21 13:49 10/17/21 13:49 Labs: Laboratory Results - last 48 hr 10/16/21 10/16/21 10/17/21 14:10 14:10 13:49 WBC 7.7 7.4 RBC 3.86 L 3.89 L Hgb 9.6 L 9.6 L Hct 31.5 L 31.9 L MCV 81.6 82.0 MCH 24.9 L 24.7 L MCHC 30.5 L 30.1 L RDW 19.6 H 19.7 H Plt Count 168 179 MPV 10.8 11.3 Immature Gran % (Auto) 2.0 H 1.5 H Neut % (Auto) 63.7 58.8 Lymph % (Auto) 24.8 27.5 [place] % (Auto) 7.8 10.3 Eos % (Auto) 1.4 1.5 Baso % (Auto) 0.3 0.4 Lymph # (Auto) 1.9 2.0 [place] # (Auto) 0.6 0.8 Eos # (Auto) 0.1 0.1 Baso # (Auto) 0.0 0.0 Abs Immat Gran (auto) 0.15 H 0.11 H Absolute Neuts (auto) 4.9 4.4 Absolute Nucleated RBC 0.000 0.000 Nucleated RBC % (auto) 0.0 0.0 Sodium 139 Potassium 5.0 Chloride 109 H Carbon Dioxide 22 Anion Gap 13 BUN 17 H Creatinine 0.83 Estim Creat Clear Calc 115.3 Estimated GFR > 60 Fasting Glucose 108 H Calcium 8.8 Total Bilirubin 0.6 AST 27 ALT 22 Alkaline Phosphatase 229 H Total Protein 6.5 Albumin 3.0 L 10/17/21 13:49 WBC RBC Hgb Hct MCV MCH MCHC RDW Plt Count MPV Immature Gran % (Auto) Neut % (Auto) Lymph % (Auto) [place] % (Auto) Eos % (Auto) Baso % (Auto) Lymph # (Auto) [place] # (Auto) Eos # (Auto) Baso # (Auto) Abs Immat Gran (auto) Absolute Neuts (auto) Absolute Nucleated RBC Nucleated RBC % (auto) Sodium 138 Potassium 4.7 Chloride 108 Carbon Dioxide 26 Anion Gap 9 L BUN 15 Creatinine 0.85 Estim Creat Clear Calc 112.5 Estimated GFR > 60 Fasting Glucose 111 H Calcium 8.8 Total Bilirubin 0.7 AST 35 ALT 29 Alkaline Phosphatase 274 H Total Protein 6.8 Albumin 3.0 L Imaging Radiology Impressions: ITS Impressions Chest X-Ray 10/07/21 20:14 IMPRESSION: No acute cardiopulmonary findings. Head CT 10/08/21 01:20 IMPRESSION: No acute intracranial pathology. Abdomen/Pelvis CT 10/08/21 01:37 IMPRESSION: 1. No acute pulmonary embolism. 2. Continued improvement of lung opacities when compared to the prior study. The largest opacity that remains is seen at the medial left lower lobe. 3. Persistent hilar adenopathy which is likely reactive. 4. Hepatic steatosis with hepatomegaly. Small volume ascites appears slightly increased from prior. VTE: negative Chest CTA 10/08/21 01:37 IMPRESSION: 1. No acute pulmonary embolism. 2. Continued improvement of lung opacities when compared to the prior study. The largest opacity that remains is seen at the medial left lower lobe. 3. Persistent hilar adenopathy which is likely reactive. 4. Hepatic steatosis with hepatomegaly. Small volume ascites appears slightly increased from prior. VTE: negative Abdomen/Pelvis CT 10/15/21 13:25 IMPRESSION: Increase hepatomegaly with redemonstration of hepatic steatosis and similar heterogeneous enhancement of the liver parenchyma. Borderline splenomegaly, similar to prior. Stable volume of ascites and anasarca. Indeterminate luminal defect in the distal SMV which could potentially represent a nonocclusive thrombus. However, evaluation was obtained in a late arterial phase which is suboptimal to assess venous structures and this could represent an artifact. If thrombosis is clinically suspected, consider further correlation with a vascular ultrasound or a CT venogram. Pericholecystic fluid is indeterminate in the setting of ascites. Clinical correlation should be obtained for pain and if there is suspicious for acute cholecystitis, further evaluation with a liver ultrasound could be obtained. Medications Medications Current Medications Acetaminophen (Acetaminophen 325 Mg Tablet) 650 mg PO Q6H PRN PRN Reason: Pain, Mild (Pain Scale 1-3) Last Admin: 10/17/21 00:57 Dose: 650 mg Documented by: Al Hydroxide/Mg Hydroxide (Magnesium Hydrox/Alum Hydrox 30 Ml Oral.Susp) 15 ml PO Q6H PRN PRN Reason: heartburn Last Admin: 10/15/21 22:19 Dose: 15 ml Documented by: Clonidine HCl (Clonidine Hcl 0.1 Mg Tablet) 0.1 mg PO TID PRN; Protocol PRN Reason: anxiety/restlessness Last Admin: 10/15/21 20:32 Dose: 0.1 mg Documented by: Gabapentin (Gabapentin 300 Mg Capsule) 300 mg PO TID CRISTINA Last Admin: 10/17/21 14:55 Dose: 300 mg Documented by: Hydromorphone HCl (Hydromorphone Hcl 2 Mg/Ml Vial) 1.5 mg IVPUSH Q4H PRN; Protocol PRN Reason: Pain, Severe (Pain Scale 7-10) Last Admin: 10/17/21 14:58 Dose: 1.5 mg Documented by: Ceftriaxone Sodium 2 gm/ (Sodium Chloride) 50 mls @ 100 mls/hr IV Q24H [facility] Last Infusion: 10/17/21 13:54 Dose: Infused Documented by: Melatonin (Melatonin 3 Mg Tablet) 6 mg PO BEDTIME PRN PRN Reason: Insomnia Melatonin (Melatonin 3 Mg Tablet) 6 mg PO BEDTIME [facility] Last Admin: 10/16/21 20:43 Dose: 6 mg Documented by: Methadone HCl (Methadone Hcl 20 Mg/2 Ml Oral.Conc) 55 mg PO DAILY [facility] Mirtazapine (Mirtazapine 7.5 Mg Tablet) 7.5 mg PO BEDTIME [facility] Nicotine (Nicotine 14 Mg Patch.Td24) 14 mg TRANSDERMA DAILY [facility] Last Admin: 10/17/21 09:21 Dose: 14 mg Documented by: Nicotine Polacrilex (Nicotine Polacrilex Lozenge 4 Mg Lozenge) 4 mg BUCCAL Q2H PRN PRN Reason: Nicotine Cravings Last Admin: 10/16/21 20:43 Dose: 4 mg Documented by: Ondansetron HCl (Ondansetron Hcl 4 Mg/2 Ml Vial) 4 mg IVPUSH Q8H PRN PRN Reason: Nausea and Vomiting Last Admin: 10/17/21 02:16 Dose: 4 mg Documented by: Rivaroxaban (Rivaroxaban 20 Mg Tablet) 20 mg PO DAILY [facility] Last Admin: 10/17/21 09:20 Dose: 20 mg Documented by: Senna (Sennosides 8.6 Mg Tablet) 17.2 mg PO BEDTIME PRN PRN Reason: Constipation Sodium Chloride (0.9 % Sodium Chloride Flush 3 Ml Syringe) 3 ml IVFLUSH QSHIFT [facility] Last Admin: 10/17/21 16:45 Dose: Not Given Documented by: Allergies Allergies Allergy/AdvReac Type Severity Reaction Status Date / Time No Known Allergies Allergy Unverified 07/05/20 15:53 [No Known Allergies*] Assessment & Plan Assessment & Plan (1) Opioid use disorder: Status: Acute Code(s): F11.99 - Opioid use, unspecified with unspecified opioid-induced disorder Assessment and Plan: * orders for increase in methadone and mirtazipine trial entered * at time of this note, RN reporting patient was signing out AMA I spent ___35___ minutes with the patient and/or on the patient floor today, greater than?50% of which was spent counseling/coordinating care.
--- NOTE | 2022-01-28 16:54 | PM.DS ---
DS: Providers Provider Date of Service: 10/08/21 Date of admission: 10/08/21 03:50 Date of discharge: 10/08/21 Primary care physician: Camelia Elkins Consults: 10/08/21 03:39 Consult to Infectious Diseases Routine Consulting Provider: Lena Plascencia Reason for consultation: IVDA; endocarditis; Bacteremia; Inturrupted therapy. 10/08/21 03:51 Addiction Medicine Routine Consulting Provider: Tami Luna Reason for consultation: substance abuse; opiate dependence DS: Diagnosis Discharge Diagnosis (1) Opioid use disorder: Status: Acute DS: Summary Hospital Course Hospital Course: Left against medical advise Time Spent with Patient Time attestation: Total time spent providing and/or coordinating discharge services: Discharge coordination time: Greater than 30 minutes Quality: Safe Use of Opioids Does Pt have an Active Cancer Diagnosis on the Problem List?: No Quality: Stroke Does the patient have a stroke diagnosis?: No Physical Exam Vital Signs: Vital Signs: Last Vital Signs Temp 98.2 F 10/17/21 11:36 Pulse 84 10/17/21 11:36 Resp 16 10/17/21 14:58 BP 110/65 10/17/21 11:36 Pulse Ox 94 10/17/21 11:36 BMI result Body Mass Index 24.0 DS: Data Data Completed and Pending Completed studies during hospitalization [Text1]: Procedures Detoxification Services for Substance Abuse Treatment (11/18/21) Discharge Plan Discharge Patient Disposition: Left Against Medical Advice Discharge Diagnosis: Bacteremia Referrals: Camelia Elkins [Primary Care Provider] - 1 Week Physician,Shy Tan [Physician] - 2 days Discharge Medications: No Action No Known Home Meds 0RF Discharge Orders: Discharge Order (Routine); Ordered 01/28/22 Ordered By: Shaggy Toribio Diet: advance to usual diet Activity on Discharge: As tolerated Care Plan Goals: AMA Health Concerns: AMA Plan of Treatment: AMA Assessment: AMA Discharge Date/Time: 10/17/21 18:30
--- NOTE | 2022-02-20 10:36 | PM.DS ---
DS: Providers Provider Date of Service: 02/20/22 Date of admission: 10/08/21 03:50 Date of discharge: 10/17/21 Primary care physician: Camelia Elkins Consults: 10/08/21 03:39 Consult to Infectious Diseases Routine Consulting Provider: Lena Plascencia Reason for consultation: IVDA; endocarditis; Bacteremia; Inturrupted therapy. 10/08/21 03:51 Addiction Medicine Routine Consulting Provider: Tami Luna Reason for consultation: substance abuse; opiate dependence DS: Diagnosis Discharge Diagnosis (1) Opioid use disorder: Status: Acute DS: Summary Hospital Course Hospital Course: 30-year-old male with a past medical history of IV drug abuse, directed to the lower replacement, recurrent endocarditis, hepatitis-C, history of pulmonary embolism-noncompliant with Xarelto; recent admission to the hospital for endocarditis/streptococcal bacteremia; left AMA on 09/17/21-interrupted antibiotic therapy; has been abusing drugs-cocaine and heroin; presented today to the hospital with a chief complaint of altered mental status. ? Blood cultures x2 drawn in the ER are now growing Gram-positive cocci Repeat of same....Was on Vanco/CTX....signed out AMA Time Spent with Patient Time attestation: Total time spent providing and/or coordinating discharge services: Discharge coordination time: Greater than 30 minutes Quality: Safe Use of Opioids Does Pt have an Active Cancer Diagnosis on the Problem List?: No Quality: Stroke Does the patient have a stroke diagnosis?: No Physical Exam Vital Signs: Vital Signs: Last Vital Signs Temp 98.2 F 10/17/21 11:36 Pulse 84 10/17/21 11:36 Resp 16 10/17/21 14:58 BP 110/65 10/17/21 11:36 Pulse Ox 94 10/17/21 11:36 BMI result Body Mass Index 24.0 Const: Other: somnolent but arousable no acute distress HEENT: Other: oropharynx clear; membranes moist Resp: Other: clear to auscultation bilaterally no rales rhonchi wheezes Cardio: Other: no S4; positive S1-S2; no S3 murmurs of scalp GI: Other: soft nontender nondistended normoactive bowel sounds Neuro: Other: cranial nerves 2-12 grossly intact as tested. Motor is 5/5 all extremities sensation intact. Cognition appropriate Extrem: Other: no edema bilaterally DS: Data Data Completed and Pending Completed studies during hospitalization [Text1]: Procedures Detoxification Services for Substance Abuse Treatment (11/18/21) Discharge Plan Discharge Patient Disposition: Left Against Medical Advice Discharge Diagnosis: Bacteremia Referrals: Camelia Elkins [Primary Care Provider] - 1 Week Physician,Shy J [Physician] - 2 days Discharge Medications: No Action No Known Home Meds 0RF Discharge Orders: Discharge Order (Routine); Ordered 01/28/22 Ordered By: Shaggy Toribio Diet: advance to usual diet Activity on Discharge: As tolerated Care Plan Goals: AMA Health Concerns: AMA Plan of Treatment: AMA Assessment: AMA Discharge Date/Time: 10/17/21 18:30
--- NOTE | 2022-03-11 16:03 | PM.DS ---
DS: Providers Provider Date of Service: 03/11/22 Date of admission: 10/08/21 03:50 Date of discharge: 10/17/21 Primary care physician: Camelia Elkins Consults: 10/08/21 03:39 Consult to Infectious Diseases Routine Consulting Provider: Lena Plascencia Reason for consultation: IVDA; endocarditis; Bacteremia; Inturrupted therapy. 10/08/21 03:51 Addiction Medicine Routine Consulting Provider: Tami Luna Reason for consultation: substance abuse; opiate dependence DS: Diagnosis Discharge Diagnosis (1) Sepsis: Status: Acute (2) Opioid use disorder: Status: Acute DS: Summary Hospital Course Hospital Course: 30-year-old male with a past medical history of IV drug abuse, directed to the lower replacement, recurrent endocarditis, hepatitis-C, history of pulmonary embolism-noncompliant with Xarelto; recent admission to the hospital for endocarditis/streptococcal bacteremia; left AMA on 09/17/21-interrupted antibiotic therapy; has been abusing drugs-cocaine and heroin; presented today to the hospital with a chief complaint of altered mental status. ? Blood cultures x2 drawn in the ER are now growing Gram-positive cocci Repeat of same....Was on Vanco/CTX....signed out AMA Time Spent with Patient Time attestation: Total time spent providing and/or coordinating discharge services: Discharge coordination time: Greater than 30 minutes Quality: Safe Use of Opioids Does Pt have an Active Cancer Diagnosis on the Problem List?: No Quality: Stroke Does the patient have a stroke diagnosis?: No Physical Exam Vital Signs: Vital Signs: Last Vital Signs Temp 98.2 F 10/17/21 11:36 Pulse 84 10/17/21 11:36 Resp 16 10/17/21 14:58 BP 110/65 10/17/21 11:36 Pulse Ox 94 10/17/21 11:36 BMI result Body Mass Index 24.0 DS: Data Data Completed and Pending Completed studies during hospitalization [Text1]: Procedures Detoxification Services for Substance Abuse Treatment (11/18/21) Discharge Plan Discharge Patient Disposition: Left Against Medical Advice Discharge Diagnosis: Bacteremia Referrals: Camelia Elkins [Primary Care Provider] - 1 Week Physician,Shy J [Physician] - 2 days Discharge Medications: No Action No Known Home Meds 0RF Discharge Orders: Discharge Order (Routine); Ordered 01/28/22 Ordered By: Shaggy Toribio Diet: advance to usual diet Activity on Discharge: As tolerated Care Plan Goals: AMA Health Concerns: AMA Plan of Treatment: AMA Assessment: AMA Discharge Date/Time: 10/17/21 18:30
--- NOTE | 2022-03-11 16:09 | PM.DS ---
DS: Providers Provider Date of Service: 03/11/22 Date of admission: 10/08/21 03:50 Primary care physician: Camelia Elkins Consults: 10/08/21 03:39 Consult to Infectious Diseases Routine Consulting Provider: Lena Plascencia Reason for consultation: IVDA; endocarditis; Bacteremia; Inturrupted therapy. 10/08/21 03:51 Addiction Medicine Routine Consulting Provider: Tami Luna Reason for consultation: substance abuse; opiate dependence DS: Diagnosis Discharge Diagnosis (1) Sepsis: Status: Acute (2) Opioid use disorder: Status: Acute DS: Summary Hospital Course Hospital Course: 30-year-old male with a past medical history of IV drug abuse, directed to the lower replacement, recurrent endocarditis, hepatitis-C, history of pulmonary embolism-noncompliant with Xarelto; recent admission to the hospital for endocarditis/streptococcal bacteremia; left AMA on 09/17/21-interrupted antibiotic therapy; has been abusing drugs-cocaine and heroin; presented today to the hospital with a chief complaint of altered mental status. ? Blood cultures x2 drawn in the ER are now growing Gram-positive cocci Repeat of same....Was on Vanco/CTX....signed out AMA Time Spent with Patient Time attestation: Total time spent providing and/or coordinating discharge services: Discharge coordination time: Greater than 30 minutes Quality: Safe Use of Opioids Does Pt have an Active Cancer Diagnosis on the Problem List?: No Quality: Stroke Does the patient have a stroke diagnosis?: No Physical Exam Vital Signs: Vital Signs: Last Vital Signs Temp 98.2 F 10/17/21 11:36 Pulse 84 10/17/21 11:36 Resp 16 10/17/21 14:58 BP 110/65 10/17/21 11:36 Pulse Ox 94 10/17/21 11:36 BMI result Body Mass Index 24.0 Const: Other: somnolent but arousable no acute distress HEENT: Other: oropharynx clear; membranes moist Resp: Other: clear to auscultation bilaterally no rales rhonchi wheezes Cardio: Other: no S4; positive S1-S2; no S3 murmurs of scalp GI: Other: soft nontender nondistended normoactive bowel sounds Neuro: Other: cranial nerves 2-12 grossly intact as tested. Motor is 5/5 all extremities sensation intact. Cognition appropriate Extrem: Other: no edema bilaterally DS: Data Data Completed and Pending Completed studies during hospitalization [Text1]: Procedures Detoxification Services for Substance Abuse Treatment (11/18/21) Discharge Plan Discharge Patient Disposition: Left Against Medical Advice Discharge Diagnosis: Bacteremia Referrals: Camelia Elkins [Primary Care Provider] - 1 Week Physician,Shy J [Physician] - 2 days Discharge Medications: No Action No Known Home Meds 0RF Discharge Orders: Discharge Order (Routine); Ordered 01/28/22 Ordered By: Shaggy Toribio Diet: advance to usual diet Activity on Discharge: As tolerated Care Plan Goals: AMA Health Concerns: AMA Plan of Treatment: AMA Assessment: AMA Discharge Date/Time: 10/17/21 18:30
== END 2021-10-17 18:30 | disposition left against medical advice (07) | DRG 720 ==
LOC: HO.ED 10-08 03:10 → HO.EDOVER 10-08 04:35 → HO.IMC 10-08 23:08
PROVIDERS: Physician Assistant; Student in an Organized Health Care Education/Training Program; Admitting Provider Hospitalist; Emergency Provider Emergency Medicine; PCP Nurse Practitioner Family; Visit Provider Hospitalist
DX: A40.9 Streptococcal sepsis, unspecified (principal); I07.9 Rheumatic tricuspid valve disease, unspecified; Z59.02 Unsheltered homelessness; F11.10 Opioid abuse, uncomplicated; Z20.822 Contact with and (suspected) exposure to COVID-19; B19.20 Unspecified viral hepatitis C without hepatic coma; F14.10 Cocaine abuse, uncomplicated; Z86.711 Personal history of pulmonary embolism; Z91.14 Patient's other noncompliance with medication regimen
CPT/HCPCS: 36415; 70450; 71045; 71275; 74177; 80053; 80143; 80179; 80202; 80307; 81001; 82077; 82565; 83605; 83735; 84484; 85025; 85610; 85730; 87040; 87077; 87186; 87205; 87635; 93005; 93306; 96361; 96365; 96375; 99285; 99291; J0696; J1170; J1885; J2405; J2543; J3370; Q0163; Q9967

== ENCOUNTER 2021-10-23 20:26 | Emergency (ER) | payer MEDICAID, SELFPAY ==
--- NOTE | 2021-10-23 20:32 | PC.NURSE ---
pt arrives by ems after PD found him acting irratically in the streets of [place]. Pt is not being cooperative with a foreign exchange position clerk at this time. Multiple attempts. Client moaning and having involuntary movements.
[2021-10-23 20:33] VITALS: BP 127/70; PULSE 145; O2SAT 98
[2021-10-23 20:44] VITALS: BP 127/70; PULSE 120; RESP 14; O2SAT 98; BMI 21.5
--- NOTE | 2021-10-23 20:47 | PC.NURSE ---
pt placed on 3 L NC due to desaturations from heroin. Client has periods of apnea then periods of erratic behavior.
[2021-10-23 21:20] VITALS: BP 112/68; PULSE 115; RESP 16; O2SAT 99
[2021-10-23 23:27] VITALS: BP 108/61; PULSE 102; RESP 16; O2SAT 99
[2021-10-24 01:20] LABS: Appearance Urine CLEAR; Color Urine YELLOW; Glucose Urine UA NEG (NEG); Leukocyte Esterase Urine NEG (NEG); Nitrite Urine NEG (NEG); PH 6.5 (5.0-8.0); UACC Culture Trigger NO; Urine Blood 3+ (NEG); Urine Ketones NEG (NEG); Urine Protein TRACE MG/DL (NEG-TRACE)
[2021-10-24 01:36] LABS: Amphetamine Screen Urine Not Detected (Not Detect); Barbiturates, Urine Not Detected (Not Detect); Benzodiazepines Screen Urine Not Detected (Not Detect); Cannabinoid Screen Urine Not Detected (Not Detect); Cocaine Screen Urine POSITIVE (Not Detect); Fentanyl, urine POSITIVE (Not Detect); Opiate Screen Urine POSITIVE (Not Detect); Phencyclidine Screen Urine Not Detected (Not Detect)
[2021-10-24 01:37] LABS: Mucus Urine TRACE /LPF; Squamous Epithelial Cell Urine TRACE /LPF; WBC Urine 0-2 /HPF (0-4)
[2021-10-24 02:00] VITALS: BP 119/75; PULSE 95; RESP 16; O2SAT 100
--- NOTE | 2021-10-24 02:02 | ED.PSYCH ---
HPI - Psych General Chief Complaint: ETOH/Substance Use Stated Complaint: crisis Time Seen by Provider: 10/24/21 00:45 Source: patient Mode of arrival: ambulatory Limitations: no limitations History of Present Illness HPI Narrative: Patient brought by EMS for polysubstance abuse. Patient was acting erratic on the street after taking drugs. Patient was not found on the ground and negative for signs of any trauma. Patient presents at any retic Related Data Home Medications Medication Instructions Recorded Confirmed No Known Home Meds 10/08/21 10/08/21 Allergies Allergy/AdvReac Type Severity Reaction Status Date / Time No Known Allergies Allergy Verified 10/23/21 20:44 [No Known Allergies*] Review of Systems Review of Systems: Reason influence of drugs Yes all other systems are reviewed and are negative [facility] Past Medical History Medical History Anasarca Bacteremia Endocarditis HCV (hepatitis C virus) Pulmonary embolism Right heart failure Steatosis, liver Tricuspid valve stenosis Surgical History History of tricuspid valve replacement with bioprosthetic valve Social History Social History Household Members: Unknown / Unable to assess Household Members Other:: none. homeless Housing: Unknown / Unable to assess Do you presently have visiting nurse or other home services: No Unable to assess alcohol history related to: Refusing to respond Alcohol intake: unknown Patient Tobacco Use Status: Tobacco use Unknown Tobacco use type: Cigarette Substance Use Type: Heroin Advance Directives: No Advance Directives Information Provided: No service: No Current occupational status: unemployed Physical Exam Vital Signs: Vital Signs: Last Vital Signs Pulse 102 H 10/23/21 23:27 Resp 16 10/23/21 23:27 BP 108/61 10/23/21 23:27 Pulse Ox 99 10/23/21 23:27 Oxygen Flow Rate 3 10/23/21 20:44 BMI result Body Mass Index 21.5 Const: General: intoxicated appearing (Under influence of drugs) Orientation/consciousness: patient oriented x3 HENMT: Head: Yes normal to inspection, Yes No palpable skull fracture present, Yes normocephalic and Yes atraumatic Eyes: General: appearance normal, both eyes and all related structures Neck: Neck: Yes normal visual inspection, Yes full ROM, Yes no lymphadenopathy, Yes no meningeal signs, Yes trachea midline, Yes supple, No anterior neck swelling and No tender Chest: Chest palpation & inspection: normal inspection of the chest and normal palpation of entire chest wall Resp: Effort & Inspection: normal respiratory effort and able to speak in complete sentences Auscultation: clear to auscultation bilaterally Cardio: Jugular venous distension: no JVD Heart sounds: S1 normal heart sound present and S2 normal heart sound present GI: Inspection: Yes normal to inspection and No abdominal wall ecchymosis Palpation (GI): Soft to palpation, not firm, nontender, no guarding and not rigid : General: No CVA tenderness and Yes no CVA tenderness Back/Spine/Pelvis: Back: no CVA tenderness, No CVA tenderness and No back tenderness Skin: General skin exam: no rashes or lesions noted and elasticity normal Neuro: General: patient oriented x3, gait normal, no meningeal signs and CN's II-XI intact bilaterally Cranial nerves: Yes CN's II-XII intact bilaterally Extrem: General: Yes normal to inspection and Yes full ROM Psych: Other: Patient initially was moaning under the influence of drugs and making weird noises. Now patient is asleep Appearance: disheveled Course Course Course Narrative: U tox ordered Reevaluation(s) Reevaluation #1: U tox positive for opiates, cocaine, and fentanyl which is cause of patient's erratic behavior. Patient presently sleeping and vital signs are stable. Patient will be left in the ED to sober up. Case signed out to Dr. Shankar Time: 02:15 MDM - Psych MDM Narrative Medical decision making narrative: Poly substance abuse Lab Data Labs: Lab Results 10/24/21 10/24/21 Range/Units 01:02 01:02 Urine Color YELLOW Urine Appearance CLEAR Urine pH 6.5 (5.0-8.0) Ur Specific [place] 1.010 (1.005-1.025) Urine Protein TRACE (NEG-TRACE) MG/DL Urine Glucose (UA) NEG (NEG) MG/DL Urine Ketones NEG (NEG) MG/DL Urine Blood 3+ H (NEG) Urine Nitrite NEG (NEG) Ur Leukocyte Esterase NEG (NEG) Urine RBC 10-14 H (0) /HPF Urine WBC 0-2 (0-4) /HPF Ur Squamous Epith Cells TRACE /LPF Urine Bacteria NONE /LPF Urine Mucus TRACE /LPF Urine Opiates Screen POSITIVE H (Not Detect) Urine Fentanyl Screen POSITIVE H (Not Detect) Ur Barbiturates Screen Not Detected (Not Detect) Ur Phencyclidine Scrn Not Detected (Not Detect) Ur Amphetamines Screen Not Detected (Not Detect) U Benzodiazepines Scrn Not Detected (Not Detect) Urine Cocaine Screen POSITIVE H (Not Detect) U Marijuana (THC) Screen Not Detected (Not Detect) Discharge Plan Discharge Clinical Impression: Polysubstance abuse Patient Disposition: Home, Self-Care Instructions: Polysubstance Abuse (ED) Additional Instructions: Please follow-up with primary care provider. Return to ED for any complaints. Follow-up with primary care provider for detox referral Prescriptions: No Action No Known Home Meds RF: 0 Print Language: Pashto
[2021-10-24 03:43] VITALS: BP 102/69; PULSE 84; RESP 16; O2SAT 95
[2021-10-24 04:34] VITALS: BP 106/72
[2021-10-24 06:38] VITALS: BP 100/60; PULSE 77; RESP 16; O2SAT 99
[2021-10-24 07:06] VITALS: BP 99/67; PULSE 76; RESP 18; O2SAT 96
== END 2021-10-24 10:05 | disposition home or self-care (01) ==
PROVIDERS: Physician Assistant; Emergency Provider Emergency Medicine Emergency Medical Services
DX: F19.10 Other psychoactive substance abuse, uncomplicated (principal)
CPT/HCPCS: 80307; 81001; 99284

== ENCOUNTER 2021-11-03 05:01 | Inpatient (IN) | payer MEDICAID, SELFPAY ==
--- NOTE | ~2021-11-03 | XR_ITS ---
EXAMINATION: XR CHEST CLINICAL INFORMATION: Shortness of breath and cough COMPARISON: 10/07/2021 TECHNIQUE: Frontal view of the chest was obtained. FINDINGS: Normal symmetric lung volumes. No parenchymal consolidation. No pleural effusion. No pneumothorax. Cardiomediastinal silhouette and pulmonary vascularity are within normal limits. Abandoned epicardial pacer leads redemonstrated. No acute osseous abnormalities. XR/XR chest 1V IMPRESSION: No focal consolidation or other acute cardiopulmonary abnormality.
--- NOTE | ~2021-11-03 | CT_ITS ---
EXAMINATION: CT ANGIOGRAM OF THE CHEST WITH AND WITHOUT CONTRAST (CT PULMONARY ANGIOGRAM FOR PE) CLINICAL INFORMATION: Reason for Exam elevated dimer, sob, tachycardic COMPARISON: Chest x-ray dated 11/03/2021. CT pulmonary angiogram dated 10/08/2021 and 09/11/2021. TECHNIQUE: Prior to contrast administration, noncontrast localization images were obtained. Subsequently, multidetector volumetric imaging was performed from the thoracic inlet to below the diaphragms following the administration of 80 mL Omnipaque 350 intravenous contrast. No contrast reaction reported Sagittal, coronal, and MIP oblique sagittal reformatted images were obtained on the CT workstation, uploaded to PACS, and reviewed. This CT examination was performed using dose optimization techniques as appropriate, variously including the following: *Automated exposure control *Adjustment of mA and/or kV according to patient size (this includes techniques or standardized protocols for targeted exams where dose is matched to indication/reason for exam; i.e. extremities or head) *Use of iterative reconstruction technique Total exam dose-length product 244.00 mGy-cm FINDINGS: QUALITY OF STUDY/CONTRAST BOLUS: Evaluation of the pulmonary arterial tree is significantly limited by multiple factors, including delay in contrast bolus timing, extensive beam hardening artifact related to hardware in the sternum as well as dense contrast bolus in the left subclavian vessels and patient motion artifact. PULMONARY ARTERIES: Given the above discussed limitations, evaluation for pulmonary embolism is limited. In the left upper lobe, in particular, it is difficult to exclude subtle segmental or subsegmental emboli, to the findings are most suggestive of artifactual signal defects rather than true pulmonary emboli as there is contrast opacification seen beyond the level of the apparent filling defects. Elsewhere in the lungs bilaterally, no definite central or segmental pulmonary emboli are seen. Subsegmental arteries not well assessed. THORACIC AORTA: No aneurysm or dissection. LUNG: There is biapical pleural-based reticulation, consistent with scarring. There are multiple scattered ill-defined nodular opacities seen in the lungs bilaterally, ranging in size between a few millimeters and just under 10 mm. Some examples of these nodular densities include the following as seen on series 8: -Right upper lobe, image 110, 147, 150, 185. -Left upper lobe, image 154, 158. -Right middle lobe, image 236. -Right lower lobe, image 239, 248. These nodular densities are similar to the previous study. No focal dense consolidation is seen. Central airways are patent. PLEURA: No pleural effusion or pneumothorax. MEDIASTINUM: Normal heart size. No pericardial effusion. No hilar or mediastinal lymphadenopathy. No evidence of septal bowing or right heart strain. CHEST WALL/AXILLA: No axillary or internal mammary lymphadenopathy. OSSEOUS STRUCTURES: Median sternotomy and associated hardware seen with sternal fragments are well opposed and partially ununited. No associated focal collection. UPPER ABDOMEN: Hepatic steatosis is again noted. No reflux of contrast into the hepatic veins to suggest elevated right heart pressures. CT/CT angio chest PE protocol IMPRESSION: 1. Limited study with extensive pseudodefects seen throughout the pulmonary vasculature, most significantly limiting evaluation of left upper lobe segmental and subsegmental pulmonary arteries. The overall impression is that there is no significant central or segmental pulmonary embolus. However, close clinical correlation is requested. If clinical suspicion remains high, repeat CT pulmonary angiogram could be performed for reassessment. 2. Several ill-defined nodular densities in the lungs again seen, unchanged from prior exam. Evaluation limited by motion artifact. Continued serial follow-up is recommended. 3. Hepatic steatosis.
--- NOTE | ~2021-11-03 | CT_ITS ---
EXAMINATION: CT LUMBAR SPINE CLINICAL INFORMATION: Back pain. History of IV drug use. COMPARISON: Previous x-ray of the lumbar spine April [address] of the abdomen and pelvis 10/15/2021 TECHNIQUE: Axial images through the lumbar spine following 85 mL Omnipaque 350 intravenous contrast. Sagittal and coronal reconstructions on the technologist workstation were performed. This CT examination was performed using dose optimization techniques as appropriate, variously including the following: *Automated exposure control *Adjustment of mA and/or kV according to patient size (this includes techniques or standardized protocols for targeted exams where dose is matched to indication/reason for exam; i.e. extremities or head) *Use of iterative reconstruction technique DLP: 432 mGy-cm FINDINGS: Bone alignment is normal. No fracture, dislocation or bone lesion is seen. No paraspinal abscess is seen. At L1-L2, L2-L3, L3-L4 there is no disc herniation protrusion or bulge. Spinal canal, lateral recesses and neural foramen are patent. L4-L5 there is mild disc bulge. There may be mild spinal stenosis due to short pedicles and disc bulge. No disc herniation is seen. Lateral recesses and neural foramen are patent. L5-S1 there is a mild disc bulge. No disc herniation is seen. Spinal canal, lateral recesses and neural foramen are patent. Liver and spleen appear enlarged. There is stool throughout the colon suggestive of constipation. There is excreted contrast in the collecting systems and ureters. CT/CT lumbar spine w con IMPRESSION: No fracture or paraspinal abscess seen. Mild disc bulge at L4-L5 and L5-S1.
[2021-11-03 05:04] VITALS: BP 145/85; PULSE 116; O2SAT 96
--- NOTE | 2021-11-03 05:24 | ECG_ITS ---
Test Reason : sob Blood Pressure : / mmHG Vent. Rate : 117 BPM Atrial Rate : 117 BPM P-R Int : 126 ms QRS Dur : 076 ms QT Int : 346 ms P-R-T Axes : 078 064 046 degrees QTc Int : 482 ms Sinus tachycardia with occasional Premature ventricular complexes Possible Left atrial enlargement T wave abnormality, consider anterior ischemia Abnormal ECG When compared with ECG of 10-OCT-2021 15:44, Premature ventricular complexes are now Present Questionable change in QRS axis Referred By: Generic ED Physician Electronically Signed By:VIOLET SULLIVAN
[2021-11-03 05:26] VITALS: BP 135/80; PULSE 116; RESP 24; TEMP 37.9; O2SAT 100; BMI 21.9
--- NOTE | 2021-11-03 05:30 | PC.NURSE ---
Pt refusing EKG at this time, states he is cold and can't sit still.
[2021-11-03 05:48] LABS: MANUAL DIFF FLAG NO
[2021-11-03 05:49] LABS: Basophils Absolute Auto 0.1 X10*3/uL (0.0-0.2); Basophils Percent Auto 0.3 % (0-2); Eosinophils Absolute Auto 0.1 X10*3/uL (0.0-0.4); Eosinophils Percent Auto 0.7 % (0-4); Hematocrit 36.7 % (42.0-52.0); Hemoglobin 11.3 g/dl (14.0-18.0); Imm Gran Abs Auto 0.08 X10*3/uL (0.00-0.03); Imm Gran Pct Auto 0.5 % (0.0-0.4); Lymphocytes Absolute Auto 1.4 X10*3/uL (1.2-4.9); Mean Corpuscular HGB Conc 30.8 g/dl (31.0-36.0); Mean Corpuscular Hemoglobin 24.5 pg (27.0-33.0); Mean Corpuscular Volume 79.4 fL (80.0-98.0); Mean Platelet Volume 10.8 fL (9.4-12.4); Monocytes Absolute Auto 1.2 X10*3/uL (0.1-1.2); Monocytes Percent Auto 7.8 % (2-11); Neutrophils Absolute Auto 12.3 x10*3/uL (2.0-8.3); Neutrophils Percent Auto 81.7 % (45-73); Platelet Count 223 X10*3/uL (160-400); Red Blood Count 4.62 X10*6/uL (4.60-5.80); Red Cell Distribution Width 18.9 % (11.0-16.0)
[2021-11-03 05:58] LABS: D Dimer High Sensitivity 361 NG/ML
[2021-11-03 06:03] LABS: COVID-19 Test Negative (Negative)
[2021-11-03 06:05] LABS: Lactic Acid 1.4 mmol/L (0.5-2.0)
[2021-11-03 06:09] LABS: Anion Gap 13 (12-20); Blood Urea Nitrogen 11 mg/dL (9-16); Calcium 8.7 mg/dL (8.4-10.2); Carbon Dioxide 22 mmol/L (22-29); Chloride 107 mmol/L (96-108); Creatinine Clr Calc Pharmacy 102.5; Estimated Glomerular Filt Rate > 60; Glucose Random 56 mg/dL (60-115); Potassium 3.7 mmol/L (3.3-5.1); Sodium 138 mmol/L (135-145)
[2021-11-03 06:13] LABS: Troponin-I High Sensitivity 23.2 ng/L (<3.5-35.0)
--- NOTE | 2021-11-03 06:25 | PC.NURSE ---
POC noted to be 56 mg/dl. Pt provided with food/drink.
--- NOTE | 2021-11-03 08:01 | PC.NURSE ---
Pt received from triage: Very demanding and rude. Yelling orders of what he wants from the staff. When tld by this RN that pt would have to wait until pt is seen by doctor for further orders, pt called this RN obsecities and demanded another nurse and concrete pipe plant supervisor to talk to him. Initially, when pt arrived to ED bed, pt refusing to change into gown bc he was cold. Warm blanket offers, but pt still tok his time and relucktant to assist staff at all. This RN unable to place IV or do any assessment with how pt is behaving. Charge Nurse Jeffery and MD Mcgovern aware.
[2021-11-03 08:16] VITALS: BP 118/73; PULSE 103; RESP 20; O2SAT 97
[2021-11-03] MEDS: 0.9 % Sodium Chloride 1,000 ML 999 ML IVCONT ×2 (09:11→10:20)
--- NOTE | 2021-11-03 09:18 | PC.NURSE ---
Pt refusing rectal temp at this time. Oral temp 98.9 but pt does not fully close his mouth. Pt very uncompliant with staff in ER. NABEEL Vance able to place IV with fluids at this time. Pt continues to ask for more blankets with food, and when told he has a fever, pt becomes more agitated. MD Mcgovern aware.
--- NOTE | 2021-11-03 09:44 | ED_ITS ---
HPI - General Adult General Chief complaint: Dyspnea Stated complaint: COUGH,? OPIATE WITHDRAWAL PER EMS Time Seen by Provider: 11/03/21 08:37 Source: patient and EMS Mode of arrival: EMS Limitations: other (Uncooperative) History of Present Illness HPI narrative: Patient comes to emergency room via EMS. Patient called in complaining that he has had a cough for a month. Patient states he is feeling unwell, reports using cocaine this morning. Patient also used heroin. When I tried to speak to the patient, patient was starts crying and does not give any significant information. Of note, patient is known to have recurrent endocarditis. Patient left against medical advise on October 17 after he became belligerent with the nursing staff on the floor. In the meantime, I started treating the patient prophylactically with ceftriaxone and azithromycin, same medication that Dr. Bruner from OR recommended prior to the patient leaving against medical advice Related Data Home Medications Medication Instructions Recorded Confirmed No Known Home Meds 10/08/21 11/03/21 Allergies Allergy/AdvReac Type Severity Reaction Status Date / Time No Known Allergies Allergy Verified 11/03/21 05:31 [No Known Allergies*] Review of Systems Review of Systems: Yes Other (Uncooperative) [facility] Past Medical History Medical History Anasarca Bacteremia Endocarditis HCV (hepatitis C virus) Pulmonary embolism Right heart failure Steatosis, liver Tricuspid valve stenosis Surgical History History of tricuspid valve replacement with bioprosthetic valve Social History Social History Household Members: Unknown / Unable to assess Household Members Other:: none. homeless Housing: Unknown / Unable to assess Do you presently have visiting nurse or other home services: No Unable to assess alcohol history related to: Refusing to respond Alcohol intake: unknown Patient Tobacco Use Status: Tobacco use Unknown Tobacco use type: Cigarette Substance Use Type: Heroin Advance Directives: Yes Advance Directives on File: Yes Advance Directives Date on File: 04/16/21 service: No Current occupational status: unemployed Physical Exam Vital Signs: Vital Signs: Last Vital Signs Temp 100.2 F 11/03/21 05:26 Pulse 67 11/03/21 17:00 Resp 14 11/03/21 17:00 BP 97/61 11/03/21 17:00 Pulse Ox 97 11/03/21 17:00 BMI result Body Mass Index 21.9 Course Course Course Narrative: Patient being treated prophylactically with ceftriaxone, vancomycin, patient known to have recurrent endocarditis. Also, patient is getting as CT scan for PE. Patient known to have history of PEs, not compliant with his anticoagulation medication. CT negative for PE. I discussed the patient with Dr. Toribio. Patient being admitted. Medical Decision Making Lab Data Result diagrams: 11/03/21 05:38 11/03/21 05:38 Labs: Lab Results 11/03/21 11/03/21 11/03/21 Range/Units 05:38 05:38 05:38 WBC 15.0 H (4.8-10.8) X10*3/uL RBC 4.62 (4.60-5.80) X10*6/uL Hgb 11.3 L (14.0-18.0) g/dl Hct 36.7 L (42.0-52.0) % MCV 79.4 L (80.0-98.0) fL MCH 24.5 L (27.0-33.0) pg MCHC 30.8 L (31.0-36.0) g/dl RDW 18.9 H (11.0-16.0) % Plt Count 223 (160-400) X10*3/uL MPV 10.8 (9.4-12.4) fL Immature Gran % (Auto) 0.5 H (0.0-0.4) % Neut % (Auto) 81.7 H (45-73) % Lymph % (Auto) 9.0 L (20-40) % [place] % (Auto) 7.8 (2-11) % Eos % (Auto) 0.7 (0-4) % Baso % (Auto) 0.3 (0-2) % Lymph # (Auto) 1.4 (1.2-4.9) X10*3/uL [place] # (Auto) 1.2 (0.1-1.2) X10*3/uL Eos # (Auto) 0.1 (0.0-0.4) X10*3/uL Baso # (Auto) 0.1 (0.0-0.2) X10*3/uL Abs Immat Gran (auto) 0.08 H (0.00-0.03) X10*3/uL Absolute Neuts (auto) 12.3 H (2.0-8.3) x10*3/uL Absolute Nucleated RBC 0.000 (0.0-0.012) X10*3/uL Nucleated RBC % (auto) 0.0 (0.0-0.2) /100WBC D-Dimer High Sensitivty NG/ML Sodium 138 (135-145) mmol/L Potassium 3.7 D (3.3-5.1) mmol/L Chloride 107 (96-108) mmol/L Carbon Dioxide 22 (22-29) mmol/L Anion Gap 13 (12-20) BUN 11 (9-16) mg/dL Creatinine 0.92 (0.5-1.4) mg/dL Estim Creat Clear Calc 102.5 Estimated GFR > 60 POC Glucose (60-115) mg/dL Random Glucose 56 L* (60-115) mg/dL Lactic Acid (0.5-2.0) mmol/L Calcium 8.7 (8.4-10.2) mg/dL Troponin I High Sens 23.2 (<3.5-35.0) ng/L COVID-19 ([facility]) (Negative) COVID-19 Clin Com 11/03/21 11/03/21 11/03/21 Range/Units 05:38 05:38 05:38 WBC (4.8-10.8) X10*3/uL RBC (4.60-5.80) X10*6/uL Hgb (14.0-18.0) g/dl Hct (42.0-52.0) % MCV (80.0-98.0) fL MCH (27.0-33.0) pg MCHC (31.0-36.0) g/dl RDW (11.0-16.0) % Plt Count (160-400) X10*3/uL MPV (9.4-12.4) fL Immature Gran % (Auto) (0.0-0.4) % Neut % (Auto) (45-73) % Lymph % (Auto) (20-40) % [place] % (Auto) (2-11) % Eos % (Auto) (0-4) % Baso % (Auto) (0-2) % Lymph # (Auto) (1.2-4.9) X10*3/uL [place] # (Auto) (0.1-1.2) X10*3/uL Eos # (Auto) (0.0-0.4) X10*3/uL Baso # (Auto) (0.0-0.2) X10*3/uL Abs Immat Gran (auto) (0.00-0.03) X10*3/uL Absolute Neuts (auto) (2.0-8.3) x10*3/uL Absolute Nucleated RBC (0.0-0.012) X10*3/uL Nucleated RBC % (auto) (0.0-0.2) /100WBC D-Dimer High Sensitivty 361 NG/ML Sodium (135-145) mmol/L Potassium (3.3-5.1) mmol/L Chloride (96-108) mmol/L Carbon Dioxide (22-29) mmol/L Anion Gap (12-20) BUN (9-16) mg/dL Creatinine (0.5-1.4) mg/dL Estim Creat Clear Calc Estimated GFR POC Glucose (60-115) mg/dL Random Glucose (60-115) mg/dL Lactic Acid 1.4 (0.5-2.0) mmol/L Calcium (8.4-10.2) mg/dL Troponin I High Sens (<3.5-35.0) ng/L COVID-19 ([facility]) Negative (Negative) COVID-19 Clin Com See Note 11/03/21 Range/Units 11:45 WBC (4.8-10.8) X10*3/uL RBC (4.60-5.80) X10*6/uL Hgb (14.0-18.0) g/dl Hct (42.0-52.0) % MCV (80.0-98.0) fL MCH (27.0-33.0) pg MCHC (31.0-36.0) g/dl RDW (11.0-16.0) % Plt Count (160-400) X10*3/uL MPV (9.4-12.4) fL Immature Gran % (Auto) (0.0-0.4) % Neut % (Auto) (45-73) % Lymph % (Auto) (20-40) % [place] % (Auto) (2-11) % Eos % (Auto) (0-4) % Baso % (Auto) (0-2) % Lymph # (Auto) (1.2-4.9) X10*3/uL [place] # (Auto) (0.1-1.2) X10*3/uL Eos # (Auto) (0.0-0.4) X10*3/uL Baso # (Auto) (0.0-0.2) X10*3/uL Abs Immat Gran (auto) (0.00-0.03) X10*3/uL Absolute Neuts (auto) (2.0-8.3) x10*3/uL Absolute Nucleated RBC (0.0-0.012) X10*3/uL Nucleated RBC % (auto) (0.0-0.2) /100WBC D-Dimer High Sensitivty NG/ML Sodium (135-145) mmol/L Potassium (3.3-5.1) mmol/L Chloride (96-108) mmol/L Carbon Dioxide (22-29) mmol/L Anion Gap (12-20) BUN (9-16) mg/dL Creatinine (0.5-1.4) mg/dL Estim Creat Clear Calc Estimated GFR POC Glucose 82 (60-115) mg/dL Random Glucose (60-115) mg/dL Lactic Acid (0.5-2.0) mmol/L Calcium (8.4-10.2) mg/dL Troponin I High Sens (<3.5-35.0) ng/L COVID-19 ([facility]) (Negative) COVID-19 Clin Com Discharge Plan Discharge Clinical Impression: Endocarditis Patient Disposition: Admitted As Inpatient
[2021-11-03] MEDS: iohexoL 350 MG/ML 100 ML INFUS..BTL IV (10:13)
[2021-11-03] MEDS: cefTRIAXone sodium 1 GM in 0.9 % Sodium Chloride 50 ML IV (10:33)
--- NOTE | 2021-11-03 10:33 | PC.NURSE ---
Pt continues to refuse rectal temp. Pt continues to yell obsentities to staff intermittently when awake. Pt sleeps at this time. Ordered meds given. RN will continue to monitor.
[2021-11-03] MEDS: vancomycin HCL 750 MG in 0.9 % Sodium Chloride 250 ML 265 MG IV (10:57)
[2021-11-03 11:49] LABS: Glucose, Whole Blood 82 mg/dL (60-115)
[2021-11-03] MEDS: cloNIDine HCL 0.2 MG TABLET PO (11:53)
[2021-11-03] MEDS: Loperamide HCl 2 MG CAPSULE 4 MG PO (11:53)
[2021-11-03] MEDS: ondansetron HCL 4 MG/2 ML VIAL IVPUSH (11:53)
[2021-11-03 11:58] VITALS: BP 113/71; PULSE 94; O2SAT 97
--- NOTE | 2021-11-03 12:54 | PHA.PROG ---
Admission Date/Time: Indication: BACTEREMIA Weight in k.503 kg Adjusted body weight in Kg: [place] body weight in Kg: Obesity Dosing Indication % IBW: Serum Creatinine - Last 168 Hours 11/03/21 05:38 Creatinine 0.92 Estimated CrCl and GFR - Last 168 Hours 11/03/21 05:38 Estim Creat Clear Calc 102.5 Estimated GFR > 60 Vancomycin Loading Dose: Current Vancomycin Dosing Regimen:1000 MG Q 12 HOURS Vancomycin Monitoring using AUC goal of 400 - 600 range with trough as surrogate marker: Date and Time for next Vancomycin Level to be drawn: Pharmacist Comments on Vancomycin Plan:PREDICTED AUC OF 496 Vancomycin dosing will take advantage of [employer] as a clinical decision support tool that uses Bayesian modeling to calculate individual patient's pharmacokinetic parameters and forecast the patient's drug concentration time course with the target goal AUC 24 range of 400 - 600 mg/L/hr.
--- NOTE | 2021-11-03 13:09 | PHA.MEDREC ---
Pharmacy Consult ? Medication Reconciliation Pharmacy has completed the medication reconciliation.
[2021-11-03] MEDS: Dextrose 5 % and 0.45 % NaCl 1,000 ML 125 ML IVCONT ×2 (14:36→23:21)
[2021-11-03 17:00] VITALS: BP 97/61; PULSE 67; RESP 14; O2SAT 97
[2021-11-03 20:31] VITALS: BP 103/66; PULSE 75; RESP 18; TEMP 36.7; O2SAT 97
[2021-11-03] MEDS: vancomycin HCL 1,000 MG in 0.9 % Sodium Chloride 250 ML 270 MG IV (22:09)
[2021-11-04 00:57] VITALS: BP 90/55; PULSE 62; RESP 18; TEMP 36.5; O2SAT 98
[2021-11-04] MEDS: HYDROmorphone HCl 1 MG/ML SYRINGE IVPUSH ×2 (02:37→20:45)
[2021-11-04] MEDS: 0.9 % Sodium Chloride Flush 3 ML SYRINGE IVFLUSH ×2 (02:38→09:31)
[2021-11-04] MEDS: LORazepam 2 MG/ML VIAL 1 MG IVPUSH (04:12)
[2021-11-04] MEDS: Dextrose 5 % and 0.45 % NaCl 1,000 ML 125 ML IVCONT ×3 (04:14→21:06)
--- NOTE | 2021-11-04 04:21 | PC.NURSE ---
pt yelling to disconnect fluids. Reporting he is cold. temperature 98.6. Refusing rectal temp. Notified Dr. Mace. Will continue to monitor. Per provider okay to stop fluid for now.
--- NOTE | 2021-11-04 05:00 | PC.NURSE ---
pt sleeping at this time no sign of distress.
[2021-11-04 06:33] VITALS: RESP 16; O2SAT 96
[2021-11-04 09:36] LABS: Basophils Percent Auto 0.3 % (0-2); Eosinophils Absolute Auto 0.2 X10*3/uL (0.0-0.4); Eosinophils Percent Auto 1.7 % (0-4); Hematocrit 35.7 % (42.0-52.0); Hemoglobin 10.7 g/dl (14.0-18.0); Imm Gran Abs Auto 0.05 X10*3/uL (0.00-0.03); Imm Gran Pct Auto 0.4 % (0.0-0.4); Lymphocytes Absolute Auto 1.5 X10*3/uL (1.2-4.9); Lymphocytes Percent Auto 12.6 % (20-40); MANUAL DIFF FLAG SCAN; Mean Corpuscular Hemoglobin 23.9 pg (27.0-33.0); Mean Corpuscular Volume 79.9 fL (80.0-98.0); Mean Platelet Volume 10.7 fL (9.4-12.4); Monocytes Absolute Auto 1.5 X10*3/uL (0.1-1.2); Monocytes Percent Auto 12.9 % (2-11); Neutrophils Absolute Auto 8.5 x10*3/uL (2.0-8.3); Neutrophils Percent Auto 72.1 % (45-73); Platelet Count 146 X10*3/uL (160-400); Red Blood Count 4.47 X10*6/uL (4.60-5.80); Red Cell Distribution Width 19.4 % (11.0-16.0); SCAN SMEAR FLAG 1; White Blood Count 11.8 X10*3/uL (4.8-10.8)
--- NOTE | 2021-11-04 09:38 | PC.NURSE ---
oatmeal reheated for patient. requested and given kaitlin nancy. sleepy, grumpy. asking for a fucking sandwich .
[2021-11-04 09:54] LABS: Alanine Aminotransferase 13 U/L (0-40); Albumin Level 2.5 g/dL (3.5-5.0); Alkaline Phosphatase 171 U/L (39-117); Anion Gap 9 (12-20); Aspartate Amino Transferase 20 U/L (5-37); Blood Urea Nitrogen 13 mg/dL (9-16); Calcium 8.2 mg/dL (8.4-10.2); Carbon Dioxide 21 mmol/L (22-29); Chloride 114 mmol/L (96-108); Creatinine Clr Calc Pharmacy 109.7; Estimated Glomerular Filt Rate > 60; Glucose Fasting 80 mg/dL (60-99); Potassium 4.4 mmol/L (3.3-5.1); Sodium 140 mmol/L (135-145); Total Protein 5.7 g/dL (6.5-8.0)
[2021-11-04 09:59] LABS: SLIDE REVIEW VERIFIED
[2021-11-04] MEDS: cefTRIAXone sodium 1 GM in 0.9 % Sodium Chloride 50 ML IV (11:14)
[2021-11-04] MEDS: vancomycin HCL 1,000 MG in 0.9 % Sodium Chloride 250 ML 270 MG IV ×2 (12:09→22:55)
--- NOTE | 2021-11-04 13:18 | HO.ADDICT_ITS ---
History of Present Illness Date of Service: 11/04/2021 Chief Complaint: BACTEREMIA Reason for Consult: OUD eval and treatment Requesting physician: Shaggy Toribio Discussed with referring provider: Yes HPI Narrative: Patient with OUD and recurrent endocarditis. 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 Patient very drowsy and when he did open his eyes, he was a bit demanding ( warm up my food, I'm hungry ), but then would fall back to sleep. Current presentation is typical of previous admissions where he sleeps most of the day for 1-2 days then wakes and is more engaging. Unfortunately, patient is also known to be a bit disrespectful and verbally abusive to several clinical staff, despite positive rapport with others. Please see previous addiciton consult notes for full substance use history. Unclear where patient has been residing for the past 2+ weeks, but he does report using both cocaine and opiates--last use reported as being right before admission. At time of last admission patient was titrating methadone and was at 55mg when he discharged. At this time unclear if he ever followed up with [facility] Past Psychiatric History: Not reviewed Review of Systems Review of Systems Yes Unobtainable due to mental status (unable to stay awake) Diagnostics Vital Signs (24Hr): Vital Signs - 24 hr 11/03/21 17:00 11/03/21 20:31 11/04/21 00:57 Temperature 98.0 F 97.7 F Pulse Rate 67 75 62 Respiratory Rate 14 18 18 Blood Pressure 97/61 103/66 90/55 L Pulse Oximetry 97 97 98 11/04/21 06:33 Temperature Pulse Rate Respiratory Rate 16 Blood Pressure Pulse Oximetry 96 BMI result Body Mass Index 21.9 Labs Results: 11/04/21 09:17 11/04/21 09:17 Labs: Laboratory Results - last 48 hr 11/03/21 11/03/21 11/03/21 05:38 05:38 05:38 WBC 15.0 H RBC 4.62 Hgb 11.3 L Hct 36.7 L MCV 79.4 L MCH 24.5 L MCHC 30.8 L RDW 18.9 H Plt Count 223 MPV 10.8 Immature Gran % (Auto) 0.5 H Neut % (Auto) 81.7 H Lymph % (Auto) 9.0 L [place] % (Auto) 7.8 Eos % (Auto) 0.7 Baso % (Auto) 0.3 Lymph # (Auto) 1.4 [place] # (Auto) 1.2 Eos # (Auto) 0.1 Baso # (Auto) 0.1 Abs Immat Gran (auto) 0.08 H Absolute Neuts (auto) 12.3 H Absolute Nucleated RBC 0.000 Nucleated RBC % (auto) 0.0 Smear Tech's Comments D-Dimer High Sensitivty Sodium 138 Potassium 3.7 D Chloride 107 Carbon Dioxide 22 Anion Gap 13 BUN 11 Creatinine 0.92 Estim Creat Clear Calc 102.5 Estimated GFR > 60 POC Glucose Random Glucose 56 L* Fasting Glucose Lactic Acid Calcium 8.7 Total Bilirubin AST ALT Alkaline Phosphatase Troponin I High Sens 23.2 Total Protein Albumin COVID-19 ([facility]) COVID-[employer] 11/03/21 11/03/21 11/03/21 05:38 05:38 05:38 WBC RBC Hgb Hct MCV MCH MCHC RDW Plt Count MPV Immature Gran % (Auto) Neut % (Auto) Lymph % (Auto) [place] % (Auto) Eos % (Auto) Baso % (Auto) Lymph # (Auto) [place] # (Auto) Eos # (Auto) Baso # (Auto) Abs Immat Gran (auto) Absolute Neuts (auto) Absolute Nucleated RBC Nucleated RBC % (auto) Smear Tech's Comments D-Dimer High Sensitivty 361 Sodium Potassium Chloride Carbon Dioxide Anion Gap BUN Creatinine Estim Creat Clear Calc Estimated GFR POC Glucose Random Glucose Fasting Glucose Lactic Acid 1.4 Calcium Total Bilirubin AST ALT Alkaline Phosphatase Troponin I High Sens Total Protein Albumin COVID-19 ([facility]) Negative COVID-19 Hyphen 8 Com See Note 11/03/21 11/04/21 11/04/21 11:45 09:17 09:17 WBC 11.8 H RBC 4.47 L Hgb 10.7 L Hct 35.7 L MCV 79.9 L MCH 23.9 L MCHC 30.0 L RDW 19.4 H Plt Count 146 L D MPV 10.7 Immature Gran % (Auto) 0.4 Neut % (Auto) 72.1 Lymph % (Auto) 12.6 L [place] % (Auto) 12.9 H Eos % (Auto) 1.7 Baso % (Auto) 0.3 Lymph # (Auto) 1.5 [place] # (Auto) 1.5 H Eos # (Auto) 0.2 Baso # (Auto) 0.0 Abs Immat Gran (auto) 0.05 H Absolute Neuts (auto) 8.5 H Absolute Nucleated RBC 0.000 Nucleated RBC % (auto) 0.0 Smear Tech's Comments VERIFIED D-Dimer High Sensitivty Sodium 140 Potassium 4.4 Chloride 114 H Carbon Dioxide 21 L Anion Gap 9 L BUN 13 Creatinine 0.86 Estim Creat Clear Calc 109.7 Estimated GFR > 60 POC Glucose 82 Random Glucose Fasting Glucose 80 Lactic Acid Calcium 8.2 L Total Bilirubin 1.0 AST 20 D ALT 13 Alkaline Phosphatase 171 H D Troponin I High Sens Total Protein 5.7 L Albumin 2.5 L COVID-19 ([facility]) COVID-19 Clin Com Imaging Radiology Impressions: ITS Impressions Chest X-Ray 11/03/21 06:08 IMPRESSION: No focal consolidation or other acute cardiopulmonary abnormality. Chest CTA 11/03/21 10:11 IMPRESSION: 1. Limited study with extensive pseudodefects seen throughout the pulmonary vasculature, most significantly limiting evaluation of left upper lobe segmental and subsegmental pulmonary arteries. The overall impression is that there is no significant central or segmental pulmonary embolus. However, close clinical correlation is requested. If clinical suspicion remains high, repeat CT pulmonary angiogram could be performed for reassessment. 2. Several ill-defined nodular densities in the lungs again seen, unchanged from prior exam. Evaluation limited by motion artifact. Continued serial follow-up is recommended. 3. Hepatic steatosis. Mental Status Exam Mental Status Exam Level of Consciousness: Drowsy Medications Medications Current Medications Enoxaparin Sodium (Enoxaparin Sodium 40 Mg/0.4 Ml Syringe) 40 mg SUBCUT Q24H [facility] Last Admin: 11/04/21 12:09 Dose: Not Given Documented by: Hydromorphone HCl (Hydromorphone Hcl 1 Mg/Ml Syringe) 1 mg IVPUSH Q4H PRN; Protocol PRN Reason: Pain, Severe (Pain Scale 7-10) Last Admin: 11/04/21 02:37 Dose: 1 mg Documented by: Dextrose/Sodium Chloride (D51/2ns) 1,000 mls @ 125 mls/hr IVCONT .Q8H [facility] Last Admin: 11/04/21 04:14 Dose: 125 mls/hr Documented by: Ceftriaxone Sodium 1 gm/ (Sodium Chloride) 50 mls @ 100 mls/hr IV Q24H [facility] Last Admin: 11/04/21 11:14 Dose: 100 mls/hr Documented by: Vancomycin HCl 1,000 mg/ (Sodium Chloride) 270 mls @ 270 mls/hr IV Q12H [facility] Last Admin: 11/04/21 12:09 Dose: 270 mls/hr Documented by: Ibuprofen (Ibuprofen 600 Mg Tablet) 600 mg PO Q6H PRN PRN Reason: Fever or Pain, Mild (Pain Scale 1-3) Methadone HCl (Methadone Hcl 20 Mg/2 Ml Oral.Conc) 10 mg PO Q3H PRN PRN Reason: Opiate Withdrawal Pharmacy Consult (Consult Rx Vancomycin Dosing) 1 each MISCELLANE DAILY PRN PRN Reason: Consult order Sodium Chloride (0.9 % Sodium Chloride Flush 3 Ml Syringe) 3 ml IVFLUSH QSHIFT [facility] Last Admin: 11/04/21 09:31 Dose: 3 ml Documented by: Allergies Allergies Allergy/AdvReac Type Severity Reaction Status Date / Time No Known Allergies Allergy Verified 11/03/21 05:31 [No Known Allergies*] Assessment & Plan Assessment & Plan (1) Opioid use disorder: Status: Acute Code(s): F11.99 - Opioid use, unspecified with unspecified opioid-induced disorder Assessment and Plan: * methadone 10mg Q3hrs PRN for opioid withdrawal max of 3 doses. Please only administer if patient is awake. Monitor for respiratory depression * COWS ordered--will continue to follow and titrate dose as necessary. * Discussed with attending provider I spent ____30__ minutes with the patient and/or on the patient floor today, greater than?50% of which was spent counseling/coordinating care. [facility] Past Medical History Medical History Anasarca Bacteremia Endocarditis HCV (hepatitis C virus) Pulmonary embolism Right heart failure Steatosis, liver Tricuspid valve stenosis Surgical History Surgical History History of tricuspid valve replacement with bioprosthetic valve Social History Social History Household Members: Unknown / Unable to assess Household Members Other:: none. homeless Housing: Unknown / Unable to assess Do you presently have visiting nurse or other home services: No Unable to assess alcohol history related to: Refusing to respond Alcohol intake: unknown Patient Tobacco Use Status: Tobacco use Unknown Tobacco use type: Cigarette Use of substances other than those prescribed or required for medical reasons: Refusing to respond Substance Use Type: Heroin Advance Directives: Yes Advance Directives on File: Yes Advance Directives Date on File: 04/16/21 service: No Current occupational status: unemployed
--- NOTE | 2021-11-04 14:35 | PM.IMHP ---
History of Present Illness Date of Service: 11/03/21 Chief Complaint: opiate withdrawal 31-year-old male with a history of heroin and cocaine abuse recently signed out AMA 10/17/2021. Was admitted for treatment of partially treated Gram-positive bacteremia. This will be his 3rd admission for same previous 2 of which she has signed out AMA. He states he is and pain all over and his last heroin/ cocaine use the day of admission. In the emergency room he was found to be very somnolent; hemodynamically stable. He was given a dose of vancomycin and ceftriaxone. He will be admitted in an attempt to complete treatment for his bacteremia Review of Systems Review of Systems: states pain all over Denies shortness of breath Denies nausea vomiting diarrhea PMFSH Medical History Anasarca Bacteremia Endocarditis HCV (hepatitis C virus) Pulmonary embolism Right heart failure Steatosis, liver Tricuspid valve stenosis Surgical History History of tricuspid valve replacement with bioprosthetic valve Social History Household Members: Unknown / Unable to assess Household Members Other:: none. homeless Housing: Unknown / Unable to assess Do you presently have visiting nurse or other home services: No Unable to assess alcohol history related to: Refusing to respond Alcohol intake: unknown Patient Tobacco Use Status: Tobacco use Unknown Tobacco use type: Cigarette Use of substances other than those prescribed or required for medical reasons: Refusing to respond Substance Use Type: Heroin Advance Directives: Yes Advance Directives on File: Yes Advance Directives Date on File: 04/16/21 service: No Current occupational status: unemployed Meds Allergies Allergy/AdvReac Type Severity Reaction Status Date / Time No Known Allergies Allergy Verified 11/03/21 05:31 [No Known Allergies*] Active Medications: Current Medications Enoxaparin Sodium (Enoxaparin Sodium 40 Mg/0.4 Ml Syringe) 40 mg SUBCUT Q24H [facility] Last Admin: 11/04/21 12:09 Dose: Not Given Documented by: Hydromorphone HCl (Hydromorphone Hcl 1 Mg/Ml Syringe) 1 mg IVPUSH Q4H PRN; Protocol PRN Reason: Pain, Severe (Pain Scale 7-10) Last Admin: 11/04/21 02:37 Dose: 1 mg Documented by: Dextrose/Sodium Chloride (D51/2ns) 1,000 mls @ 125 mls/hr IVCONT .Q8H [facility] Last Admin: 11/04/21 13:26 Dose: 125 mls/hr Documented by: Ceftriaxone Sodium 1 gm/ (Sodium Chloride) 50 mls @ 100 mls/hr IV Q24H [facility] Last Infusion: 11/04/21 13:23 Dose: Infused Documented by: Vancomycin HCl 1,000 mg/ (Sodium Chloride) 270 mls @ 270 mls/hr IV Q12H [facility] Last Infusion: 11/04/21 13:23 Dose: Infused Documented by: Ibuprofen (Ibuprofen 600 Mg Tablet) 600 mg PO Q6H PRN PRN Reason: Fever or Pain, Mild (Pain Scale 1-3) Methadone HCl (Methadone Hcl 20 Mg/2 Ml Oral.Conc) 10 mg PO Q3H PRN PRN Reason: Opiate Withdrawal Pharmacy Consult (Consult Rx Vancomycin Dosing) 1 each MISCELLANE DAILY PRN PRN Reason: Consult order Sodium Chloride (0.9 % Sodium Chloride Flush 3 Ml Syringe) 3 ml IVFLUSH QSHIFT [facility] Last Admin: 11/04/21 09:31 Dose: 3 ml Documented by: Home Medications Medication Instructions Recorded Confirmed Last Taken Type No Known Home Meds 10/08/21 11/03/21 Unknown History Physical Exam Vital Signs and Narrative: Vital Signs: Last Vital Signs Temp 97.7 F 11/04/21 00:57 Pulse 62 11/04/21 00:57 Resp 16 11/04/21 06:33 BP 90/55 L 11/04/21 00:57 Pulse Ox 96 11/04/21 06:33 BMI result Body Mass Index 21.9 Const: Other: somnolent but arousable Resp: Other: clear to auscultation bilaterally. No rales rhonchi or wheezes Cardio: Other: no S4; positive S1-S2; no S3 murmurs or gallops GI: Other: soft nontender nondistended positive active bowel sounds Neuro: Other: cranial nerves 2-12 grossly intact as tested. Moving all extremities with equal power. Sensation appears intact Extrem: Other: no edema bilaterally Results Labs CBC and Chem 7: 11/04/21 09:17 11/04/21 09:17 Labs: Laboratory Results - last 24 hr 11/04/21 11/04/21 09:17 09:17 MCV 79.9 L MCH 23.9 L MCHC 30.0 L RDW 19.4 H Plt Count 146 L D MPV 10.7 Immature Gran % (Auto) 0.4 Neut % (Auto) 72.1 Lymph % (Auto) 12.6 L [place] % (Auto) 12.9 H Eos % (Auto) 1.7 Baso % (Auto) 0.3 Lymph # (Auto) 1.5 [place] # (Auto) 1.5 H Eos # (Auto) 0.2 Baso # (Auto) 0.0 Abs Immat Gran (auto) 0.05 H Absolute Neuts (auto) 8.5 H Absolute Nucleated RBC 0.000 Nucleated RBC % (auto) 0.0 Smear Tech's Comments VERIFIED Anion Gap 9 L Estim Creat Clear Calc 109.7 Estimated GFR > 60 Fasting Glucose 80 Calcium 8.2 L Total Bilirubin 1.0 AST 20 D ALT 13 Alkaline Phosphatase 171 H D Total Protein 5.7 L Albumin 2.5 L Assessment and Plan (1) Polysubstance abuse: Status: Acute (2) Bacteremia: Status: Acute ?30-year-old male with a past medical history of IV drug abuse, directed to the lower replacement, recurrent endocarditis, hepatitis-C, history of pulmonary embolism-noncompliant with Xarelto; recent admission to the hospital for endocarditis/streptococcal bacteremia; left AMA on 09/17/21 and 10/17/21interrupted antibiotic therapy; has been abusing drugs-cocaine and heroin; presented today to the hospital with a chief complaint of altered mental status changes and diffuse pain 1. History of Gram-positive bacteremia - admitted; will start vancomycin and ceftriaxone as per previous admission -ID consult; blood cultures pending 2. Polysubstance abuse - care team consult; patient encouraged to complete therapy as this will be the 3rd time he is in temp today. Follow clinically full code Lovenox Quality Stroke Does the patient have a stroke diagnosis?: No VTE Prior VTE?: No VTE Risk Level:: Medical - moderate - high VTE Device Contraindication: Treatment Not Indicated VTE Drug Contraindication: N/A - Med Ordered
--- NOTE | 2021-11-04 15:35 | P.PNIM_ITS ---
Subjective Subjective Date of Service: 11/04/21 Interval History: no acute issues overnight; remains somnolent but arousable Review of Systems complains of diffuse muscle and joint pain Denies chest pain Denies shortness of breath Denies nausea vomiting diarrhea Physical Exam Vital Signs: Vital Signs: Last Vital Signs Temp 97.7 F 11/04/21 00:57 Pulse 62 11/04/21 00:57 Resp 16 11/04/21 06:33 BP 90/55 L 11/04/21 00:57 Pulse Ox 96 11/04/21 06:33 BMI result Body Mass Index 21.9 Const: Other: somnolent but arousable Resp: Other: clear to auscultation bilaterally. No rales rhonchi or wheezes Cardio: Other: no S4; positive S1-S2; no S3 murmurs or gallops GI: Other: soft nontender nondistended positive active bowel sounds Neuro: Other: cranial nerves 2-12 grossly intact as tested. Moving all extr emities with equal power. Sensation appears intact Extrem: Other: no edema bilaterally Objective Data Active Medications Enoxaparin Sodium (Enoxaparin Sodium 40 Mg/0.4 Ml Syringe) 40 mg SUBCUT Q24H [facility] Last Admin: 11/04/21 12:09 Dose: Not Given Documented by: EDMAR Non-Admin Reason: Patient Refused Hydromorphone HCl (Hydromorphone Hcl 1 Mg/Ml Syringe) 1 mg IVPUSH Q4H PRN; Protocol PRN Reason: Pain, Severe (Pain Scale 7-10) Last Admin: 11/04/21 02:37 Dose: 1 mg Documented by: MELISSA Dextrose/Sodium Chloride (D51/2ns) 1,000 mls @ 125 mls/hr IVCONT .Q8H [facility] Last Admin: 11/04/21 13:26 Dose: 125 mls/hr Documented by: EDMAR Ceftriaxone Sodium 1 gm/ (Sodium Chloride) 50 mls @ 100 mls/hr IV Q24H [facility] Last Infusion: 11/04/21 13:23 Dose: 0 mls/hr Documented by: EDMAR Vancomycin HCl 1,000 mg/ (Sodium Chloride) 270 mls @ 270 mls/hr IV Q12H [facility] Last Infusion: 11/04/21 13:23 Dose: 0 mls/hr Documented by: EDMAR Ibuprofen (Ibuprofen 600 Mg Tablet) 600 mg PO Q6H PRN PRN Reason: Fever or Pain, Mild (Pain Scale 1-3) Methadone HCl (Methadone Hcl 20 Mg/2 Ml Oral.Conc) 10 mg PO Q3H PRN PRN Reason: Opiate Withdrawal Pharmacy Consult (Consult Rx Vancomycin Dosing) 1 each MISCELLANE DAILY PRN PRN Reason: Consult order Sodium Chloride (0.9 % Sodium Chloride Flush 3 Ml Syringe) [address] [facility] Last Admin: 11/04/21 09:31 Dose: 3 ml Documented by: RAULITO Labs CBC & Chem 7: 11/04/21 09:17 11/04/21 09:17 Labs: Laboratory Results - last 24 hr 11/04/21 11/04/21 09:17 09:17 MCV 79.9 L MCH 23.9 L MCHC 30.0 L RDW 19.4 H Plt Count 146 L D MPV 10.7 Immature Gran % (Auto) 0.4 Neut % (Auto) 72.1 Lymph % (Auto) 12.6 L [place] % (Auto) 12.9 H Eos % (Auto) 1.7 Baso % (Auto) 0.3 Lymph # (Auto) 1.5 [place] # (Auto) 1.5 H Eos # (Auto) 0.2 Baso # (Auto) 0.0 Abs Immat Gran (auto) 0.05 H Absolute Neuts (auto) 8.5 H Absolute Nucleated RBC 0.000 Nucleated RBC % (auto) 0.0 Smear Tech's Comments VERIFIED Anion Gap 9 L Estim Creat Clear Calc 109.7 Estimated GFR > 60 Fasting Glucose 80 Calcium 8.2 L Total Bilirubin 1.0 AST 20 D ALT 13 Alkaline Phosphatase 171 H D Total Protein 5.7 L Albumin 2.5 L Microbiology Microbiology Results: Microbiology 11/03/21 10:29 Blood Culture - Preliminary Blood - Venous Prelim: GPC Gram Stain only 11/03/21 10:29 Blood Culture - Preliminary Blood - Venous Prelim: GPC Gram Stain only 11/03/21 05:38 Blood Culture - Preliminary Blood - Venous Streptococcus species 11/03/21 05:38 Blood Culture - Preliminary Blood - Venous Streptococcus species Assessment and Plan (1) Polysubstance abuse: Status: Acute (2) Bacteremia: Status: Acute Assessment and Plan: ?30-year-old male with a past medical history of IV drug abuse, directed to the lower replacement, recurrent endocarditis, hepatitis-C, history of pulmonary embolism-noncompliant with Xarelto; recent admission to the hospital for e ndocarditis/streptococcal bacteremia; left AMA on 09/17/21 and 10/17/21interrupted antibiotic therapy; has been abusing drugs-cocaine and heroin; presented today to the hospital with a chief complaint of altered mental status changes and diffuse pain 1. History of Gram-positive bacteremia - admitted; will start vancomycin and ceftriaxone as per previous admission -ID consult; blood cultures pending - encourage completion of therapies 2. Polysubstance abuse - care team consult; patient encouraged to complete therapy as this will be the 3rd time he is in temp today. Follow clinically full code Lovemonax Quality Stroke Does the patient have a stroke diagnosis?: No VTE Prior VTE?: No VTE Risk Level:: Medical - moderate - high VTE Device Contraindication: Treatment Not Indicated VTE Drug Contraindication: N/A - Med Ordered
--- NOTE | 2021-11-04 15:52 | MHC.CM.PN ---
CM ATTEMPTED TO MEET WITH PT WHO CONTINUES TO BE SLEEPING. PT HAS BEEN HERE MULTIPLE TIMES RECENTLY PT IS HOMELESS AND FULLY INDEPENDENT AT BASELINE PT DOES NOT HAVE AN ESTABLISHED PCP BUT USES [facility] PT HAS A HCP ON FILE PT IS NOT VACCINATED AGAINST COVID-19 PT WILL LIKELY NEED LONG-TERM IV ABX IN A SNF HOWEVER HAS LEFT AMA MULTIPLE TIMES WHILE WAITING FOR PLACEMENT. CONTACT CARD LEFT FOR PT
[2021-11-04] MEDS: methADONE HCl 20 MG/2 ML ORAL.CONC 10 MG PO (17:03)
--- NOTE | 2021-11-04 22:09 | PC.NURSE ---
pt refused 2100 lab draw of vancomycin trough. Dr. Omalley notified and requested approval of administration or hold of 2200 vancoo - awaiting reply.
[2021-11-05] VITALS (7 sets, daily range): BP systolic 119–121; BP diastolic 70–86; PULSE 98–108; RESP 16–20; TEMP 36.7–37.9; O2SAT 96–99
[2021-11-05] MEDS: methADONE HCl 20 MG/2 ML ORAL.CONC 10 MG PO ×2 (04:43→17:01)
[2021-11-05] MEDS: HYDROmorphone HCl 1 MG/ML SYRINGE IVPUSH ×3 (09:57→20:06)
[2021-11-05] MEDS: cefTRIAXone sodium 2 GM in 0.9 % Sodium Chloride 50 ML IV (10:44)
--- NOTE | 2021-11-05 11:08 | MHC.RECOVRN ---
Met with pt in [facility] 11 to discuss substance use. Pt had not followed up with the [facility] after last admission. Reports using heroin, 2 bundles daily, IV. Currently experiencing withdrawal including rhinorrhea and body aches. Pt also reporting back pain. Pt received 10 mg methadone at 1700 on 11/04 and 10 mg at 0445 this morning. Discussed with Tami Luna APRN. Pt to receive additional 20 mg this morning and 5 mg later today. Will continue to follow.
[2021-11-05] MEDS: methADONE HCl 20 MG/2 ML ORAL.CONC PO (11:33)
--- NOTE | 2021-11-05 11:37 | HO.PM.IMPN ---
Subjective Subjective Date of Service: 11/05/21 Interval History: cc: cough, feeling unwell interval hisotry: feeling opiate withdrawal Cardiovascular Cardiovascular: Reports no additional cardiovascular complaints Respiratory Respiratory: Reports no additional respiratory complaints Physical Exam Vital Signs: Vital Signs: Last Vital Signs Temp 98.7 F 11/05/21 06:52 Pulse 98 11/05/21 06:52 Resp 20 11/05/21 08:00 BP 119/78 11/05/21 06:52 Pulse Ox 99 11/05/21 06:52 BMI result Body Mass Index 21.9 General: lethargic O X 3, ill appearing Resp: CTA bilateral, no accessory muscles used CVS: S1,S2,RRR GI: soft, non tender, non distended Neuro: motor grossly intact, lethargic Psych: appropriate affect, appropriate insight Objective Data Active Medications Enoxaparin Sodium (Enoxaparin Sodium 40 Mg/0.4 Ml Syringe) 40 mg SUBCUT Q24H [facility] Last Admin: 11/05/21 10:44 Dose: Not Given Documented by: MADHAV Non-Admin Reason: Patient Refused Hydromorphone HCl (Hydromorphone Hcl 1 Mg/Ml Syringe) 1 mg IVPUSH Q4H PRN; Protocol PRN Reason: Pain, Severe (Pain Scale 7-10) Last Admin: 11/05/21 09:57 Dose: 1 mg Documented by: MADHAV Ceftriaxone Sodium 2 gm/ (Sodium Chloride) 50 mls @ 100 mls/hr IV Q24H [facility] Last Infusion: 11/05/21 11:22 Dose: 0 mls/hr Documented by: MADHAV Ibuprofen (Ibuprofen 600 Mg Tablet) 600 mg PO Q6H PRN PRN Reason: Fever or Pain, Mild (Pain Scale 1-3) Sodium Chloride (0.9 % Sodium Chloride Flush 3 Ml Syringe) 3 ml IVFLUSH QSHIFT [facility] Last Admin: 11/05/21 09:57 Dose: Not Given Documented by: MADHAV Non-Admin Reason: IV Running Labs CBC & Chem 7: 11/04/21 09:17 11/04/21 09:17 Microbiology Microbiology Results: Microbiology 11/03/21 10:29 Blood Culture - Preliminary Blood - Venous Gram positive cocci Coag negative Staphylococcus 11/03/21 10:29 Blood Culture - Preliminary Blood - Venous Gram positive cocci 11/03/21 05:38 Blood Culture - Final Blood - Venous Streptococcus sanguinis 11/03/21 05:38 Blood Culture - Final Blood - Venous Streptococcus sanguinis 11/03/21 22:50 Blood Culture - Preliminary Blood - Venous No growth after 24 hours. 11/03/21 22:50 Blood Culture - Preliminary Blood - Venous No growth after 24 hours. Assessment and Plan (1) Polysubstance abuse: Status: Acute (2) Bacteremia: Status: Acute Assessment and Plan: ?30-year-old male with a past medical history of IV drug abuse, directed to the lower replacement, recurrent endocarditis, hepatitis-C, history of pulmonary embolism-noncompliant with Xarelto; recent admission to the hospital for endocarditis/streptococcal bacteremia; left AMA on 09/17/21 and 10/17/21interrupted antibiotic therapy; has been abusing drugs-cocaine and heroin; presented today to the hospital with a chief complaint of altered mental status changes and diffuse pain toxic metabolic encephlopathy due to polysubstance abuse and toxicity with opiates and cocaine back to baseline mental status opiate dependence with withdrawal follow up addiction medicine, dilaudid for now 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 positive 11/03/2021 am, negative so far 11/03/2021 PM will dc vanco increase rocephin to 2gm daily ID eval, ? role for gentamycin will need placement prior to picc HCV oupatient follow up history of pulmonary embolism non compliant with xarelto, was likely septic embolism, will hold off on AC for now full code dvt prophylaxis with Lovenox Quality Stroke Does the patient have a stroke diagnosis?: No VTE Prior VTE?: Yes VTE Risk Level:: Medical - moderate - high VTE Device Contraindication: Treatment Not Indicated VTE Drug Contraindication: N/A - Med Ordered
--- NOTE | 2021-11-05 13:25 | P.CDIC_ITS ---
CDI Concurrent Query Documentation Clarification: PHYSICIAN'S DOCUMENTATION REQUEST Date of Query: 11/05/21 1326 Patient Name: Norberto Marquez Admit Date: 11/03/21 Dear Doctor, A review of the medical record indicates additional documentation may be needed. Please review below and update the documentation accordingly. Clinical Indicators: Risk Factors/Clinical Indicators/Treatments WBC 15 HR 116 RR 24 Left AMA x2 during prior treatment for endocarditis Per H&P: Gram negative bacteremia Per MD progress note 11/05/21: 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 positive 11/03/2021 am, negative so far 11/03/2021 PM Please clarify which, if any, of the following is the most likely etiology of the above symptoms and treatment rendered: * Sepsis, present on admission * Systemic manifestations of infection, with 2 or more SIRS criteria which include: - Fever > 100.4F or hypothermia < 96.8 F - Leukocytosis - WBC > 12,000 or leukopenia, WBC < 4,000 or > 10% bands - Tachycardia > 90 beats/minute - Tachypnea - RR > 20 breaths/minute or PaCO2 < 32mmHg (Source: Merck Manual 2013) * Indicate the known or suspected organism * Indicate the known or suspected underlying infection, such as UTI, pneumonia, or cellulitis * Indicate if a suspected bacterial infection of unknown source * Indicate if associated with an implanted device such as a F/C, PICC line, orthopedic hardware, etc. * Localized infection only, without systemic illness - indicate the site/source, such as UTI, pneumonia, etc. * Bacteremia (abnormal lab finding only, does not indicate systemic illness) * Other (please specify) * Unable to determine Use of terms such as suspected, likely, concern for, or probable (associated with a specific diagnosis that is being evaluated, monitored, or treated as if it exists) are acceptable and can be coded in the inpatient setting, when documented at the time of discharge. Thank you, Sena Navarro RN Extension: [phone] Please use your independent medical judgment in providing your response. THIS QUERY IS PART OF THE PERMANENT MEDICAL RECORD Provider Response: Other Other Diagnosis: odubt sepsis, probably more withdrawal
--- NOTE | 2021-11-05 14:28 | P.CNID_ITS ---
History of Present Illness Data of Consult Service Date: 11/05/21 Requesting physician: Gaurav Snowden Primary Care Provider: [facility] HPI Reason for consult: bacteremia He presents to hospital with weakness as well as fatigue. He was found on street. He has gram positive cocci in blood. I had last seen him September and strep equis likely endocarditis,left AMA. Review of Systems Verdana 4l Review of Systems: Yes all other systems are reviewed and Verdana 4d are negative [facility] Past Medical History Medical History (Updated 11/09/21 @ 12:09 by Larry Mace MD) Anasarca Bacteremia Bacteremia Endocarditis HCV (hepatitis C virus) Pulmonary embolism Right heart failure Steatosis, liver Tricuspid valve stenosis Family History Family history: reviewed and not pertinent Surgical History Surgical History History of tricuspid valve replacement with bioprosthetic valve Social History Social History Household Members: Other Household Members Other:: none. homeless Housing: Homeless Do you presently have visiting nurse or other home services: No Unable to assess alcohol history related to: Refusing to respond Alcohol intake: unknown Patient Tobacco Use Status: Current everyday Tobacco user Tobacco use type: Cigarette Second Hand Smoke Exposure: No Substance Use Type: Heroin Advance Directives Date on File: 04/16/21 service: No Current occupational status: unemployed Meds Allergies Allergy/AdvReac Type Severity Reaction Status Date / Time No Known Allergies Allergy Verified 11/03/21 05:31 [No Known Allergies*] Active Medications: Current Medications Enoxaparin Sodium (Enoxaparin Sodium 40 Mg/0.4 Ml Syringe) 40 mg SUBCUT Q24H [facility] Last Admin: 11/05/21 10:44 Dose: Not Given Documented by: Hydromorphone HCl (Hydromorphone Hcl 1 Mg/Ml Syringe) 1 mg IVPUSH Q4H PRN; Protocol PRN Reason: Pain, Severe (Pain Scale 7-10) Last Admin: 11/05/21 09:57 Dose: 1 mg Documented by: Ceftriaxone Sodium 2 gm/ (Sodium Chloride) 50 mls @ 100 mls/hr IV Q24H [facility] Last Infusion: 11/05/21 11:22 Dose: Infused Documented by: Sodium Chloride (0.9 % Sodium Chloride Flush 3 Ml Syringe) 3 ml IVFLUSH QSHIFT [facility] Last Admin: 11/05/21 09:57 Dose: Not Given Documented by: Home Medications Medication Instructions Recorded Confirmed Last Taken Type No Known Home Meds 10/08/21 11/03/21 Unknown History Physical Exam Verdana 4l Vital Signs: Verdana 4d Verdana 4d Vital Signs: Verdana 4d Verdana 4Bd Last Vital Signs Verdana 4d Staff Engineer New 4d Staff Engineer New 4d Temp 98.7 F 11/05/21 06:52 Staff Engineer New 4d Pulse 98 11/05/21 06:52 Staff Engineer New 4d Resp 20 11/05/21 08:00 BP 119/78 11/05/21 06:52 Pulse Ox 99 11/05/21 06:52 BMI result Body Mass Index 21.9 Const: General: cooperative HENMT: Head: Yes normal to inspection Mouth: Normal oral and palatal mucosa present Resp: Effort & Inspection: normal respiratory effort Cardio: Rate: regular rate Rhythm: regular rhythm GI: Palpation (GI): Soft to palpation and nontender Skin: General skin exam: no rashes or lesions noted Results Labs CBC & Chem 7: 11/07/21 08:55 11/09/21 10:51 Microbiology Microbiology Results: Microbiology 11/03/21 10:29 Blood - Venous Blood Culture - Preliminary Gram positive cocci Coag negative Staphylococcus 11/03/21 10:29 Blood - Venous Blood Culture - Preliminary Gram positive cocci 11/03/21 05:38 Blood - Venous Blood Culture - Final Streptococcus sanguinis 11/03/21 05:38 Blood - Venous Blood Culture - Final Streptococcus sanguinis 11/03/21 22:50 Blood - Venous Blood Culture - Preliminary No growth after 24 hours. 11/03/21 22:50 Blood - Venous Blood Culture - Preliminary No growth after 24 hours. Assessment and Plan (1) Polysubstance abuse: Status: Acute (2) Severe sepsis: Status: Acute He has probable strep equis bacteremia again He has probable endocarditis (3) Bacteremia: Status: Acute (4) Bacteremia: Status: Acute Plan Would give Ceftriaxone Await final cultures Check HIV Check echo
--- NOTE | 2021-11-05 16:30 | MHC.RECOVRN ---
Check in with pt in 384 to discuss methadone titration and assess withdrawal. Pt in bed, awake, alert, engaged in conversation. Pt is covered with many blankets, including over pts head. Pt reporting hot/cold flashes and restlessness. Of note, pt had received 1 mg Dilaudid approx 30 mins prior to t/w engaging with pt. Pt reporting extreme back pain and states the Dilaudid doesn't even touch it. Discussed with pts RN who reports patient has been experiencing withdrawal symptoms this afternoon. Pt would like to continue increasing methadone dose. Discussed with Tami Luna APRN. Plan to receive 10 mg methadone this evening and 40 mg in the morning. Will continue to follow.
[2021-11-05] MEDS: ondansetron HCL 4 MG/2 ML VIAL IVPUSH (22:06)
[2021-11-05] MEDS: Acetaminophen 325 MG TABLET 650 MG PO (22:20)
[2021-11-06] VITALS (12 sets, daily range): BP systolic 111–123; BP diastolic 67–78; PULSE 72–107; RESP 18–20; TEMP 36.3–38.7; O2SAT 96–100
[2021-11-06] MEDS: HYDROmorphone HCl 1 MG/ML SYRINGE IVPUSH ×4 (00:04→22:44)
[2021-11-06] MEDS: 0.9 % Sodium Chloride Flush 3 ML SYRINGE IVFLUSH ×4 (00:05→18:44)
[2021-11-06] MEDS: cefTRIAXone sodium 2 GM in 0.9 % Sodium Chloride 50 ML IV (08:37)
[2021-11-06] MEDS: methADONE HCl 20 MG/2 ML ORAL.CONC 40 MG PO (08:38)
--- NOTE | 2021-11-06 08:43 | HO.PM.IMPN ---
Subjective Subjective Date of Service: 11/06/21 Interval History: cc: cough, feeling unwell interval hisotry: feeling opiate withdrawal Cardiovascular Cardiovascular: Reports no additional cardiovascular complaints Respiratory Respiratory: Reports no additional respiratory complaints Physical Exam Vital Signs: Vital Signs: Last Vital Signs Temp 97.4 F 11/06/21 04:00 Pulse 72 11/06/21 07:29 Resp 18 11/06/21 07:29 BP 111/68 11/06/21 07:29 Pulse Ox 100 11/06/21 07:29 BMI result Body Mass Index 21.9 General: lethargic O X 3, ill appearing Resp:? CTA bilateral, no accessory muscles used CVS: S1,S2,RRR GI: soft, non tender, non distended Neuro:? motor grossly intact, lethargic Psych: appropriate affect, appropriate insight? Objective Data Active Medications Enoxaparin Sodium (Enoxaparin Sodium 40 Mg/0.4 Ml Syringe) 40 mg SUBCUT Q24H [facility] Last Admin: 11/05/21 10:44 Dose: Not Given Documented by: MADHAV Non-Admin Reason: Patient Refused Hydromorphone HCl (Hydromorphone Hcl 1 Mg/Ml Syringe) 1 mg IVPUSH Q4H PRN; Protocol PRN Reason: Pain, Severe (Pain Scale 7-10) Last Admin: 11/06/21 00:04 Dose: 1 mg Documented by: SEPIDEH Ceftriaxone Sodium 2 gm/ (Sodium Chloride) 50 mls @ 100 mls/hr IV Q24H [facility] Last Infusion: 11/05/21 11:22 Dose: 0 mls/hr Documented by: MADHAV Sodium Chloride (0.9 % Sodium Chloride Flush 3 Ml Syringe) 3 ml IVFLUSH QSHIFT [facility] Last Admin: 11/06/21 00:05 Dose: 3 ml Documented by: SEPIDEH Labs CBC & Chem 7: 11/04/21 09:17 11/04/21 09:17 Microbiology Microbiology Results: Microbiology 11/03/21 22:50 Blood Culture - Preliminary Blood - Venous No growth after 48 hours. 11/03/21 22:50 Blood Culture - Preliminary Blood - Venous No growth after 48 hours. 11/03/21 10:29 Blood Culture - Preliminary Blood - Venous Gram positive cocci Coag negative Staphylococcus 11/03/21 10:29 Blood Culture - Preliminary Blood - Venous Gram positive cocci 11/03/21 05:38 Blood Culture - Final Blood - Venous Streptococcus sanguinis 11/03/21 05:38 Blood Culture - Final Blood - Venous Streptococcus sanguinis Assessment and Plan (1) Polysubstance abuse: Status: Acute (2) Bacteremia: Status: Acute Assessment and Plan: ?30-year-old male with a past medical history of IV drug abuse, directed to the lower replacement, recurrent endocarditis, hepatitis-C, history of pulmonary embolism-noncompliant with Xarelto; recent admission to the hospital for endocarditis/streptococcal bacteremia; left AMA on 09/17/21 and 10/17/21interrupted antibiotic therapy; has been abusing drugs-cocaine and heroin; presented today to the hospital with a chief complaint of altered mental status changes and diffuse pain toxic metabolic encephlopathy due to polysubstance abuse and toxicity with opiates and cocaine back to baseline mental status opiate dependence with withdrawal follow up addiction medicine, dilaudid for now 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 positive 11/03/2021 am, negative so far 11/03/2021 PM rocephin to 2gm daily will need placement prior to picc HCV oupatient follow up history of pulmonary embolism non compliant with xarelto, was likely septic embolism, will hold off on AC for now full code dvt prophylaxis with Lovenox Quality Stroke Does the patient have a stroke diagnosis?: No VTE Prior VTE?: Yes VTE Risk Level:: Medical - moderate - high VTE Device Contraindication: Treatment Not Indicated VTE Drug Contraindication: N/A - Med Ordered
--- NOTE | 2021-11-06 13:05 | MHC.CM.PN ---
SNF REFERRALS UPDATED. OF THIS NOTE, NO BED OFFERS
--- NOTE | 2021-11-06 13:40 | MHC.CM.PN ---
Addendum entered by Liz Blanco 11/07/21 16:52: [facility] DENYING A BED SECONDARY TO IVDA AND AMA HISTORY Original Note: REFERRAL UPDATED TO INCLUDE [facility] ([facility]) THERE ARE NO SNF BED OFFERS
[2021-11-06] MEDS: methADONE HCl 20 MG/2 ML ORAL.CONC 5 MG PO (14:41)
--- NOTE | 2021-11-06 15:36 | P.PNADD_ITS ---
Subjective Subjective Date of Service: 11/06/21 Reason For Visit: BACTEREMIA Guardianship: No Medical Problems Affecting Mental Status: No Interim History: Norberto reports he continues with some withdrawals and cravings, reports feeling chills, hot and cold flashes, restlessness. Methadone dose this a.m. 40 mg. Patient also has bacteremia. He is also receiving p.r.n. Dilaudid 1 mg. During last stay in September of 2021 at this facility, patient had been titrated up with methadone, with final dose of 55 mg methadone daily. He reports that that does was sufficient to manage withdrawals and cravings. Medication Compliance: Yes Side effects from medications: No Review of Systems Acute medical concerns: Yes bacteremia Medical Review of Systems: unchanged Mental Status Exam Mental Status Exam Narrative: Well-developed, thin male. In NAD. Withdrawal symptoms noted include slight diaphoresis, restlessness. Eye contact within normal limits. Alert and oriented x4. Fully cooperative with encounter. Patient Appearance: Fatigued and Appropriate Patient Orientation: Person, Place, Time and Situation Level of Consciousness: Awake and Appropriate Patient Behavior: Appropriate and Cooperative Mood Description: Appropriate Affect Description: Appropriate Patient Cognition Impaired: No Ability to Follow Directions: Excellent Speech Pattern: Clear, Coherent and Soft-Spoken Memory Description: Intact Delusions: Not Present Thought Process: Goal Oriented and Linear Thought Content: positive for Intact, positive for Goal Oriented and positive for Linear Judgement: Fair Diagnostics Vital Signs (24Hr): Vital Signs - 24 hr 11/05/21 22:09 11/05/21 23:21 11/05/21 23:25 Temperature 100.2 F 99.8 F 99.8 F Pulse Rate 108 H Respiratory Rate 18 Blood Pressure 121/70 Pulse Oximetry 96 11/06/21 04:00 11/06/21 07:29 11/06/21 11:01 Temperature 97.4 F 98 F Pulse Rate 82 72 88 Respiratory Rate 18 18 18 Blood Pressure 120/78 111/68 114/68 Pulse Oximetry 98 100 97 11/06/21 15:18 Temperature 98.8 F Pulse Rate 101 H Respiratory Rate 18 Blood Pressure 111/69 Pulse Oximetry 96 BMI result Body Mass Index 21.9 Labs Results: 11/04/21 09:17 11/04/21 09:17 Imaging Radiology Impressions: ITS Impressions Chest X-Ray 11/03/21 06:08 IMPRESSION: No focal consolidation or other acute cardiopulmonary abnormality. Chest CTA 11/03/21 10:11 IMPRESSION: 1. Limited study with extensive pseudodefects seen throughout the pulmonary vasculature, most significantly limiting evaluation of left upper lobe segmental and subsegmental pulmonary arteries. The overall impression is that there is no significant central or segmental pulmonary embolus. However, close clinical correlation is requested. If clinical suspicion remains high, repeat CT pulmonary angiogram could be performed for reassessment. 2. Several ill-defined nodular densities in the lungs again seen, unchanged from prior exam. Evaluation limited by motion artifact. Continued serial follow-up is recommended. 3. Hepatic steatosis. Medications Medications Current Medications Enoxaparin Sodium (Enoxaparin Sodium 40 Mg/0.4 Ml Syringe) 40 mg SUBCUT Q24H [facility] Last Admin: 11/06/21 14:04 Dose: Not Given Documented by: Hydromorphone HCl (Hydromorphone Hcl 1 Mg/Ml Syringe) 1 mg IVPUSH Q4H PRN; Protocol PRN Reason: Pain, Severe (Pain Scale 7-10) Last Admin: 11/06/21 14:01 Dose: 1 mg Documented by: Ceftriaxone Sodium 2 gm/ (Sodium Chloride) 50 mls @ 100 mls/hr IV Q24H [facility] Last Infusion: 11/06/21 11:47 Dose: Infused Documented by: Methadone HCl (Methadone Hcl 20 Mg/2 Ml Oral.Conc) 45 mg PO DAILY [facility] Sodium Chloride (0.9 % Sodium Chloride Flush 3 Ml Syringe) 3 ml IVFLUSH QSHIFT [facility] Last Admin: 11/06/21 15:33 Dose: 3 ml Documented by: Allergies Allergies Allergy/AdvReac Type Severity Reaction Status Date / Time No Known Allergies Allergy Verified 11/03/21 05:31 [No Known Allergies*] Assessment & Plan Assessment & Plan (1) Opioid use disorder, severe, dependence: Status: Acute Code(s): F11.20 - Opioid dependence, uncomplicated Assessment and Plan: Currently receiving 40 mg methadone this a.m.. Also receives low-dose Dilaudid p.r.n. q.4 hours for pain. Continues with some withdrawals and cravings. Discussed increase methadone dose to include 5 mg this afternoon, new dose 45 mg daily start tomorrow a.m.. Most recent EKG shows QTC of 482 on 11/03/2021. Assessment and Plan: 1. give methadone 5mg po now. ? 2. Increase methadone to 45 mg daily, start tomorrow a.m.. I have shared this recommendation with Dr. Snowden, via secure messaging system. I spent minutes with the patient and/or on the patient floor today, greater than?50% of which was spent counseling/coordinating care. Education Patient educated on: diagnosis, medication risk/benefits, substance abuse and therapeutic strategies Informed Consent: understands
[2021-11-06] MEDS: Acetaminophen 325 MG TABLET 650 MG PO (22:31)
[2021-11-06] MEDS: ondansetron HCL 4 MG/2 ML VIAL IVPUSH (22:41)
[2021-11-07] MEDS: HYDROmorphone HCl 1 MG/ML SYRINGE IVPUSH ×4 (03:01→19:53)
[2021-11-07 03:59] VITALS: BP 135/59; PULSE 84; RESP 18; TEMP 36.4; O2SAT 98
[2021-11-07] MEDS: cefTRIAXone sodium 2 GM in 0.9 % Sodium Chloride 50 ML IV (08:45)
[2021-11-07] MEDS: methADONE HCl 20 MG/2 ML ORAL.CONC 45 MG PO (08:45)
[2021-11-07 09:07] LABS: Hematocrit 36.1 % (42.0-52.0); Hemoglobin 10.9 g/dl (14.0-18.0); Mean Corpuscular HGB Conc 30.2 g/dl (31.0-36.0); Mean Corpuscular Volume 79.5 fL (80.0-98.0); Mean Platelet Volume 10.9 fL (9.4-12.4); Platelet Count 160 X10*3/uL (160-400); Red Blood Count 4.54 X10*6/uL (4.60-5.80); Red Cell Distribution Width 19.1 % (11.0-16.0); White Blood Count 8.6 X10*3/uL (4.8-10.8)
[2021-11-07 09:32] LABS: Anion Gap 10 (12-20); Blood Urea Nitrogen 12 mg/dL (9-16); Calcium 8.6 mg/dL (8.4-10.2); Carbon Dioxide 23 mmol/L (22-29); Chloride 108 mmol/L (96-108); Creatinine Clr Calc Pharmacy 116.5; Estimated Glomerular Filt Rate > 60; Glucose Fasting 115 mg/dL (60-99); Potassium 4.2 mmol/L (3.3-5.1); Sodium 137 mmol/L (135-145)
--- NOTE | 2021-11-07 11:05 | HO.PM.IMPN ---
Subjective Subjective Date of Service: 11/07/21 Interval History: cc: cough, feeling unwell interval hisotry: improved opiate withdrawal Cardiovascular Cardiovascular: Reports no additional cardiovascular complaints Respiratory Respiratory: Reports no additional respiratory complaints Physical Exam Vital Signs: Vital Signs: Last Vital Signs Temp 97.6 F 11/07/21 03:59 Pulse 84 11/07/21 03:59 Resp 18 11/07/21 03:59 BP 135/59 L 11/07/21 03:59 Pulse Ox 98 11/07/21 03:59 BMI result Body Mass Index 21.9 General: AO X 3, no acute distress Resp: CTA bilateral, no accessory muscles used CVS: S1,S2,RRR GI: soft, non tender, non distended Neuro: motor grossly intact, alert Psych: appropriate affect, appropriate insight Objective Data Active Medications Acetaminophen (Acetaminophen 325 Mg Tablet) 650 mg PO Q8H PRN PRN Reason: pain/fever Last Admin: 11/06/21 22:31 Dose: 650 mg Documented by: SEPIDEH Enoxaparin Sodium (Enoxaparin Sodium 40 Mg/0.4 Ml Syringe) 40 mg SUBCUT Q24H [facility] Last Admin: 11/06/21 14:04 Dose: Not Given Documented by: CAROLINE Non-Admin Reason: Patient Refused Hydromorphone HCl (Hydromorphone Hcl 1 Mg/Ml Syringe) 1 mg IVPUSH Q4H PRN; Protocol PRN Reason: Pain, Severe (Pain Scale 7-10) Last Admin: 11/07/21 08:44 Dose: 1 mg Documented by: CAROLINE Ceftriaxone Sodium 2 gm/ (Sodium Chloride) 50 mls @ 100 mls/hr IV Q24H [facility] Last Infusion: 11/07/21 09:28 Dose: 100 mls/hr Documented by: CAROLINE Methadone HCl (Methadone Hcl 20 Mg/2 Ml Oral.Conc) 45 mg PO DAILY [facility] Last Admin: 11/07/21 08:45 Dose: 45 mg Documented by: CAROLINE Comments: Ondansetron HCl (Ondansetron Hcl 4 Mg/2 Ml Vial) 4 mg IVPUSH Q8H PRN PRN Reason: Nausea and Vomiting Last Admin: 11/06/21 22:41 Dose: 4 mg Documented by: SEPIDEH Sodium Chloride (0.9 % Sodium Chloride Flush 3 Ml Syringe) 3 ml IVFLUSH QSHIFT [facility] Last Admin: 11/06/21 18:44 Dose: 3 ml Documented by: SEPIDEH Labs CBC & Chem 7: 11/07/21 08:55 11/07/21 08:55 Labs: Laboratory Results - last 24 hr 11/07/21 11/07/21 08:55 08:55 MCV 79.5 L MCH 24.0 L MCHC 30.2 L RDW 19.1 H Plt Count 160 MPV 10.9 Absolute Nucleated RBC 0.000 Nucleated RBC % (auto) 0.0 Anion Gap 10 L Estim Creat Clear Calc 116.5 Estimated GFR > 60 Fasting Glucose 115 H D Calcium 8.6 Microbiology Microbiology Results: Microbiology 11/03/21 10:29 Blood Culture - Final Blood - Venous Streptococcus viridans group 11/03/21 10:29 Blood Culture - Final Blood - Venous Streptococcus viridans group Coag negative Staphylococcus Assessment and Plan (1) Polysubstance abuse: Status: Acute (2) Bacteremia: Status: Acute Assessment and Plan: ?30-year-old male with a past medical history of IV drug abuse, directed to the lower replacement, recurrent endocarditis, hepatitis-C, history of pulmonary embolism-noncompliant with Xarelto; recent admission to the hospital for endocarditis/streptococcal bacteremia; left AMA on 09/17/21 and 10/17/21interrupted antibiotic therapy; has been abusing drugs-cocaine and heroin; presented today to the hospital with a chief complaint of altered mental status changes and diffuse pain toxic metabolic encephlopathy due to polysubstance abuse and toxicity with opiates and cocaine back to baseline mental status opiate dependence with withdrawal much improved, continue methadone 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 positive 11/03/2021 am, negative so far 11/03/2021 PM rocephin to 2gm daily will need placement prior to picc end date would nov HCV oupatient follow up history of pulmonary embolism non compliant with xarelto, was likely septic embolism, will hold off on AC for now full code dvt prophylaxis with Lovenox Quality Stroke Does the patient have a stroke diagnosis?: No VTE Prior VTE?: Yes VTE Risk Level:: Medical - moderate - high VTE Device Contraindication: Treatment Not Indicated VTE Drug Contraindication: N/A - Med Ordered
[2021-11-07] MEDS: 0.9 % Sodium Chloride Flush 3 ML SYRINGE IVFLUSH ×2 (11:11→16:02)
[2021-11-07 11:29] VITALS: BP 99/58; PULSE 99; RESP 20; TEMP 36.9; O2SAT 95
--- NOTE | 2021-11-07 14:56 | MHC.RECOVRN ---
Check in with pt regarding methadone titration. Pt reports feeling better and that withdrawal symptoms are improving. However, pt continues to appear diaphoretic, c/o body aches and restlessness. Pt would like to continue increasing methadone. Pt also reports back pain and is requesting oxycodone prn. Discussed with Genia Benedict NP. Will continue to follow.
[2021-11-07 16:00] VITALS: BP 100/61; PULSE 88; RESP 20; TEMP 36.7; O2SAT 97
[2021-11-07] MEDS: methADONE HCl 20 MG/2 ML ORAL.CONC 5 MG PO (16:01)
[2021-11-07] MEDS: Acetaminophen 325 MG TABLET 650 MG PO (19:24)
[2021-11-07 20:00] VITALS: BP 109/68; PULSE 130; RESP 22; TEMP 37; O2SAT 95
[2021-11-08] VITALS: PULSE 90
[2021-11-08] MEDS: 0.9 % Sodium Chloride Flush 3 ML SYRINGE IVFLUSH ×3 (01:44→17:39)
[2021-11-08 01:46] VITALS: BP 115/57; PULSE 90; RESP 17; TEMP 36.2; O2SAT 96
[2021-11-08 01:52] VITALS: RESP 17
[2021-11-08] MEDS: HYDROmorphone HCl 1 MG/ML SYRINGE IVPUSH ×3 (01:52→13:28)
--- NOTE | 2021-11-08 05:21 | PC.NURSE ---
This rn took over patient's care at 0000. Patient alert and oriented, does not appear irritable or anxious at this time, cooperative and calm, asking for sandwich and juice. SECURITY SME reported patient refused 0000 vitals, this rn came back to do vitals at 0130, patient cooperative, vitals stable. Patient ambulated to the bathroom with steady gait. Medicated with prn dilaudid for back pain with good effect.
[2021-11-08] MEDS: methADONE HCl 20 MG/2 ML ORAL.CONC 50 MG PO (08:46)
[2021-11-08] MEDS: cefTRIAXone sodium 2 GM in 0.9 % Sodium Chloride 50 ML IV (08:46)
--- NOTE | 2021-11-08 13:00 | P.PNIM_ITS ---
Subjective Subjective Date of Service: 11/08/21 Interval History: Pt seen and examined at bedside. He is not really cooperative with exam but answers questions appropriately. Seems irritable and annoyed with me. He denies any acute symptoms. no overnight events . Denies any chest pain, no SOB, no abd pain, N/V, no urinary sx. Review of Systems Review of Systems: Yes all other systems are reviewed and are negative Physical Exam Vital Signs: Vital Signs: Last Vital Signs Temp 97.1 F 11/08/21 01:46 Pulse 90 11/08/21 01:46 Resp 17 11/08/21 01:52 BP 115/57 L 11/08/21 01:46 Pulse Ox 96 11/08/21 01:46 BMI result Body Mass Index 21.9 Const: General: cooperative and no acute distress Orientation/consciousnes s: patient oriented x3 Resp: Effort & Inspection: normal respiratory effort Auscultation: clear to auscultation bilaterally Cardio: Rate: regular rate Rhythm: regular rhythm GI: Palpation (GI): Soft to palpation Auscultation: normal bowel sounds Neuro: General: patient oriented x3 Extrem: General: Yes normal to inspection and Yes no pedal edema Objective Data Active Medications Acetaminophen (Acetaminophen 325 Mg Tablet) 650 mg PO Q8H PRN PRN Reason: pain/fever Last Admin: 11/07/21 19:24 Dose: 650 mg Documented by: SHAMAR Enoxaparin Sodium (Enoxaparin Sodium 40 Mg/0.4 Ml Syringe) 40 mg SUBCUT Q24H [facility] Last Admin: 11/07/21 11:19 Dose: Not Given Documented by: CAROLINE Non-Admin Reason: Patient Refused Hydromorphone HCl (Hydromorphone Hcl 1 Mg/Ml Syringe) 1 mg IVPUSH Q4H PRN; Protocol PRN Reason: Pain, Severe (Pain Scale 7-10) Last Admin: 11/08/21 09:51 Dose: 1 mg Documented by: DAVID Ceftriaxone Sodium 2 gm/ (Sodium Chloride) 50 mls @ 100 mls/hr IV Q24H [facility] Last Infusion: 11/08/21 10:14 Dose: 0 mls/hr Documented by: ANGEL Methadone HCl (Methadone Hcl 20 Mg/2 Ml Oral.Conc) 50 mg PO DAILY [facility] Last Admin: 11/08/21 08:46 Dose: 50 mg Documented by: ANGEL Ondansetron HCl (Ondansetron Hcl 4 Mg/2 Ml Vial) 4 mg IVPUSH Q8H PRN PRN Reason: Nausea and Vomiting Last Admin: 11/06/21 22:41 Dose: 4 mg Documented by: SEPIDEH Sodium Chloride (0.9 % Sodium Chloride Flush 3 Ml Syringe) 3 ml IVFLUSH QSHIFT [facility] Last Admin: 11/08/21 08:46 Dose: 3 ml Documented by: ANGEL Labs CBC & Chem 7: 11/07/21 08:55 11/07/21 08:55 Assessment and Plan (1) Opioid use disorder, severe, dependence: Status: Acute (2) Bacteremia: Status: Acute (3) Endocarditis: Status: Acute (4) Polysubstance abuse: Status: Acute (5) HCV (hepatitis C virus): Status: Acute Assessment and Plan: 30-year-old male with a past medical history of IV drug abuse, directed to the lower replacement, recurrent endocarditis, hepatitis-C, history of pulmonary embolism-noncompliant with Xarelto; recent admission to the hospital for endocarditis/streptococcal bacteremia; left AMA on 09/17/21 and again on 10/17/21 interrupted antibiotic therapy; has been abusing drugs-cocaine and heroin; presented to hospital on 11/04 with a chief complaint of altered mental status? 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 - positive 11/03/2021 am, negative so far 11/03/2021 PM - Continue rocephin to 2gm daily - will need placement prior to picc - end date would nov #toxic metabolic encephlopathy due to polysubstance abuse and toxicity with opiates and cocaine - resolved - back to baseline mental status # opiate dependence with withdrawal - much improved, continue methadone # HCV oupatient follow up # history of pulmonary embolism non compliant with xarelto, was likely septic embolism, will hold off on AC for now ?full code dvt prophylaxis with Lovenox awaiting placement Quality Stroke Does the patient have a stroke diagnosis?: No VTE Prior VTE?: Yes VTE Risk Level:: Medical - moderate - high VTE Device Contraindication: Treatment Not Indicated VTE Drug Contraindication: N/A - Med Ordered
[2021-11-08] MEDS: Acetaminophen 325 MG TABLET 650 MG PO ×2 (13:27→21:35)
[2021-11-08 15:19] VITALS: BP 94/51; PULSE 84; RESP 18; TEMP 37; O2SAT 97
[2021-11-08 16:00] VITALS: PULSE 90
[2021-11-08] MEDS: oxyCODONE HCl Immed Release 5 MG TABLET PO (19:20)
[2021-11-09] VITALS (7 sets, daily range): BP systolic 103–120; BP diastolic 57–70; PULSE 72–107; RESP 18; TEMP 36–36.7; O2SAT 94–99
[2021-11-09] MEDS: HYDROmorphone HCl 0.5 MG/0.5 ML SYRINGE IVPUSH (00:34)
[2021-11-09] MEDS: 0.9 % Sodium Chloride Flush 3 ML SYRINGE IVFLUSH ×4 (00:35→19:31)
[2021-11-09] MEDS: methADONE HCl 20 MG/2 ML ORAL.CONC 50 MG PO (07:47)
[2021-11-09] MEDS: HYDROmorphone HCl 1 MG/ML SYRINGE IVPUSH (07:48)
[2021-11-09] MEDS: cefTRIAXone sodium 2 GM in 0.9 % Sodium Chloride 50 ML IV (07:48)
[2021-11-09] MEDS: Acetaminophen 325 MG TABLET 650 MG PO ×2 (07:49→17:39)
--- NOTE | 2021-11-09 10:54 | MHC.RECOVSUP ---
Recovery Support note: Patient is a 31 year old Senegalese speaking male who presented to [facility] due to not feeling well and was medically admitted. Patient has been restarted on methadone. This communications writer met with patient to discuss methadone dosing and withdrawal symptoms. Patient was awake when this communications writer entered the room. Patient was minimally engaged in assessment however continues to report withdrawal symptoms. Patient states he has chills and is experiencing body aches. Patient is requesting an increase to his methadone dose. Discussed case with Autumn BEAN.
--- NOTE | 2021-11-09 11:26 | PM.EVENT ---
Event Note Date of Service: 11/09/21 Event Note: Methadone 5mg added one time dose today. Daily methadone dose increased to 55mg daily, start tomorrow. RN notifed of dose changes, and to monitor for sedation.
[2021-11-09 11:34] LABS: Anion Gap 13 (12-20); Blood Urea Nitrogen 18 mg/dL (9-16); Calcium 8.8 mg/dL (8.4-10.2); Carbon Dioxide 22 mmol/L (22-29); Chloride 108 mmol/L (96-108); Estimated Glomerular Filt Rate > 60; Glucose Random 100 mg/dL (60-115); Potassium 4.5 mmol/L (3.3-5.1); Sodium 138 mmol/L (135-145)
--- NOTE | 2021-11-09 11:44 | HO.PM.IMPN ---
Subjective Subjective Date of Service: 11/09/21 Interval History: pt seen and examined at bedside. complaining of back pain at the tail bone reports had this pain prior to admission but worsening. reports on/off weakness and numbness and tingling in his lower extremities. he is describing 10/10 low back pain, constant , non-radiating. Review of Systems Review of Systems: Yes all other systems are reviewed and are negative Physical Exam Vital Signs: Vital Signs: Last Vital Signs Temp 97.6 F 11/09/21 04:00 Pulse 84 11/09/21 06:40 Resp 18 11/09/21 04:00 BP 103/61 11/09/21 06:40 Pulse Ox 97 11/09/21 04:00 BMI result Body Mass Index 21.9 Const: General: cooperative and no acute distress Orientation/consciousness: patient oriented x3 Eyes: Pupils: Equal, round and reactive pupils present Resp: Effort & Inspection: normal respiratory effort Auscultation: clear to auscultation bilaterally Cardio: Rate: regular rate Rhythm: regular rhythm GI: Palpation (GI): Soft to palpation Auscultation: normal bowel sounds Neuro: Other: 4/5 strenight in left lower extremity General: patient oriented x3 Cranial nerves: Yes Equal, round and reactive pupils present Cognition (Neuro): normal cognition Extrem: General: Yes normal to inspection and Yes no pedal edema Objective Data Active Medications Acetaminophen (Acetaminophen 325 Mg Tablet) 650 mg PO Q8H PRN PRN Reason: pain/fever Last Admin: 11/09/21 07:49 Dose: 650 mg Documented by: ANGEL Enoxaparin Sodium (Enoxaparin Sodium 40 Mg/0.4 Ml Syringe) 40 mg SUBCUT Q24H [facility] Last Admin: 11/08/21 13:31 Dose: Not Given Documented by: ANGEL Non-Admin Reason: Patient Refused Hydromorphone HCl (Hydromorphone Hcl 1 Mg/Ml Syringe) 0.5 mg IVPUSH Q4H PRN; Protocol PRN Reason: Pain, Moderate (Pain Scale 4-6 Ceftriaxone Sodium 2 gm/ (Sodium Chloride) 50 mls @ 100 mls/hr IV Q24H [facility] Last Infusion: 11/09/21 08:54 Dose: 0 mls/hr Documented by: ANGEL Methadone HCl (Methadone Hcl 20 Mg/2 Ml Oral.Conc) 55 mg PO DAILY [facility] Methadone HCl (Methadone Hcl 5 Mg Tablet) 5 mg PO ONCE ONE Stop: 11/09/21 11:26 Ondansetron HCl (Ondansetron Hcl 4 Mg/2 Ml Vial) 4 mg IVPUSH Q8H PRN PRN Reason: Nausea and Vomiting Last Admin: 11/06/21 22:41 Dose: 4 mg Documented by: BOURQC Sodium Chloride (0.9 % Sodium Chloride Flush 3 Ml Syringe) 3 ml IVFLUSH QSHIFT [facility] Last Admin: 11/09/21 07:49 Dose: 3 ml Documented by: NGENOAL Labs CBC & Chem 7: 11/07/21 08:55 11/09/21 10:51 Labs: Laboratory Results - last 24 hr 11/09/21 10:51 Anion Gap 13 Estim Creat Clear Calc 111.0 Estimated GFR > 60 Random Glucose 100 D Calcium 8.8 Microbiology Microbiology Results: Microbiology 11/03/21 22:50 Blood Culture - Final Blood - Venous No growth after 5 days. 11/03/21 22:50 Blood Culture - Final Blood - Venous No growth after 5 days. Assessment and Plan (1) Endocarditis: Status: Acute (2) Opioid use disorder, severe, dependence: Status: Acute (3) Bacteremia: Status: Acute (4) Polysubstance abuse: Status: Acute (5) Back pain: Status: Acute Assessment and Plan: 30-year-old male with a past medical history of IV drug abuse, directed to the lower replacement, recurrent endocarditis, hepatitis-C, history of pulmonary embolism-noncompliant with Xarelto; recent admission to the hospital for endocarditis/streptococcal bacteremia; left AMA on 09/17/21 and again on 10/17/21 interrupted antibiotic therapy; has been abusing drugs-cocaine and heroin; presented to hospital on 11/04 with a chief complaint of altered mental status and diffuse pain # Back pain - reports started prior to presentation - MRI cannot be obtained due to hx of pacer lead placement ( pt reports that he was supposed to get a pacer in the past but did not) - will obtain stat CT of the lumbar and sacral back with contrast to r/o epidural abscess - continue IV abx #Bacteremia - 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 - positive 11/03/2021 am, negative so far 11/03/2021 PM - Continue rocephin to 2gm daily - will need placement prior to picc - end date would nov #toxic metabolic encephlopathy due to polysubstance abuse and toxicity with opiates and cocaine - resolved - back to baseline mental status # opiate dependence with withdrawal - much improved, continue methadone # HCV oupatient follow up # history of pulmonary embolism non compliant with xarelto, was likely septic embolism, will hold off on AC for now ?full code dvt prophylaxis with Lovenox awaiting placement Quality Stroke Does the patient have a stroke diagnosis?: No VTE Prior VTE?: Yes VTE Risk Level:: Medical - moderate - high VTE Device Contraindication: Treatment Not Indicated VTE Drug Contraindication: N/A - Med Ordered
[2021-11-09] MEDS: iohexoL 350 MG/ML 100 ML INFUS..BTL IV (12:30)
[2021-11-09] MEDS: methADONE HCl 20 MG/2 ML ORAL.CONC 5 MG PO (13:44)
[2021-11-09] MEDS: HYDROmorphone HCl 1 MG/ML SYRINGE 0.5 MG IVPUSH ×3 (13:45→21:54)
--- NOTE | 2021-11-09 15:26 | ECG_ITS ---
Test Reason : CP Blood Pressure : / mmHG Vent. Rate : 094 BPM Atrial Rate : 094 BPM P-R Int : 136 ms QRS Dur : 076 ms QT Int : 366 ms P-R-T Axes : 075 051 032 degrees QTc Int : 457 ms Normal sinus rhythm Nonspecific T wave abnormality Abnormal ECG When compared to the previous EKG of No significant changes seen Referred By: Gaurav nSowden Electronically Signed By:ANGÉLICA VILLANUEVA MD
--- NOTE | 2021-11-09 18:39 | PC.NURSE ---
Pt alrt and oriented x3. Pt continues on IV ABT therapy. Pt had a CT scan this am, as well as EKG which showed NSR. Pt continues to be demanding and very rude. He keeps swearing at staff if no immidiate response.
[2021-11-09] MEDS: Nicotine 14 MG PATCH.TD24 TRANSDERMA (19:29)
[2021-11-10] VITALS: PULSE 84
[2021-11-10 03:34] VITALS: RESP 20
[2021-11-10] MEDS: HYDROmorphone HCl 1 MG/ML SYRINGE 0.5 MG IVPUSH ×2 (03:34→09:29)
[2021-11-10] MEDS: Acetaminophen 325 MG TABLET 650 MG PO ×2 (09:28→17:18)
[2021-11-10] MEDS: cefTRIAXone sodium 2 GM in 0.9 % Sodium Chloride 50 ML IV (09:28)
[2021-11-10] MEDS: 0.9 % Sodium Chloride Flush 3 ML SYRINGE IVFLUSH ×2 (09:28→17:19)
[2021-11-10] MEDS: methADONE HCl 20 MG/2 ML ORAL.CONC 55 MG PO (09:29)
[2021-11-10 12:00] VITALS: BP 104/65; PULSE 88; RESP 18; TEMP 36.3; O2SAT 100
--- NOTE | 2021-11-10 12:05 | HO.PM.IMPN ---
Subjective Subjective Date of Service: 11/10/21 Interval History: pt seen and examined at bedside. He has no acute complaint. He is being very verbally abusive and aggressive towards nursing and staff in general. Had CT of the back done yesterday. back pain controlled at this time. denies any chest pain, no sob, no abd pain, no urinary symptoms. Review of Systems Review of Systems: Yes all other systems are reviewed and are negative Physical Exam Vital Signs: Vital Signs: Last Vital Signs Temp 97.0 F 11/09/21 23: Pulse 84 11/09/21 23:22 Resp 20 11/10/21 03:34 BP 120/59 L 11/09/21 23: Pulse Ox 96 11/09/21 23: BMI result Body Mass Index 21.9 Const: General: cooperative and no acute distress Orientation/consciousness: patient oriented x3 Resp: Effort & Inspection: normal respiratory effort Auscultation: clear to auscultation bilaterally Cardio: Rate: regular rate Rhythm: regular rhythm GI: Palpation (GI): Soft to palpation Auscultation: normal bowel sounds Neuro: General: patient oriented x3 Extrem: General: Yes normal to inspection and Yes no pedal edema Objective Data Active Medications Acetaminophen (Acetaminophen 325 Mg Tablet) 650 mg PO Q8H PRN PRN Reason: pain/fever Last Admin: 11/10/21 09:28 Dose: 650 mg Documented by: ANGEL Enoxaparin Sodium (Enoxaparin Sodium 40 Mg/0.4 Ml Syringe) 40 mg SUBCUT Q24H [facility] Last Admin: 11/09/21 13:36 Dose: Not Given Documented by: ANGEL Non-Admin Reason: Patient Refused Ceftriaxone Sodium 2 gm/ (Sodium Chloride) 50 mls @ 100 mls/hr IV Q24H [facility] Last Infusion: 11/10/21 11:07 Dose: 0 mls/hr Documented by: ANGEL Methadone HCl (Methadone Hcl 20 Mg/2 Ml Oral.Conc) 55 mg PO DAILY [facility] Last Admin: 11/10/21 09:29 Dose: 55 mg Documented by: ANGEL Ondansetron HCl (Ondansetron Hcl 4 Mg/2 Ml Vial) 4 mg IVPUSH Q8H PRN PRN Reason: Nausea and Vomiting Last Admin: 11/06/21 22:41 Dose: 4 mg Documented by: SEPIDEH Sodium Chloride (0.9 % Sodium Chloride Flush 3 Ml Syringe) 3 ml IVFLUSH QSHIFT [facility] Last Admin: 11/10/21 09:28 Dose: 3 ml Documented by: ANGEL Labs CBC & Chem 7: 11/07/21 08:55 11/09/21 10:51 Assessment and Plan (1) Back pain: Status: Acute (2) Endocarditis: Status: Acute (3) Bacteremia: Status: Acute (4) Polysubstance abuse: Status: Acute Assessment and Plan: 30-year-old male with a past medical history of IV drug abuse, directed to the lower replacement, recurrent endocarditis, hepatitis-C, history of pulmonary embolism-noncompliant with Xarelto; recent admission to the hospital for endocarditis/streptococcal bacteremia; left AMA on 09/17/21 and again on 10/17/21 interrupted antibiotic therapy; has been abusing drugs-cocaine and heroin; presented to hospital on 11/04 with a chief complaint of altered mental status and diffuse pain # Back pain - most likely 2/2 budge disc at l4-l5 - CT showed no evidence of abscess - MRI cannot be obtained due to hx of pacer lead placement ( pt reports that he was supposed to get a pacer in the past but did not) - continue IV abx - DC dilaudid #Bacteremia - 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 - positive 11/03/2021 am, negative so far 11/03/2021 PM - Continue rocephin to 2gm daily - will need PICC line - end date would nov #toxic metabolic encephlopathy due to polysubstance abuse and toxicity with opiates and cocaine - resolved - back to baseline mental status # opiate dependence with withdrawal - much improved, continue methadone # HCV oupatient follow up # history of pulmonary embolism non compliant with xarelto, was likely septic embolism, will hold off on AC for now ?full code dvt prophylaxis with Lovenox Dispo awaiting placement Quality Stroke Does the patient have a stroke diagnosis?: No VTE Prior VTE?: Yes VTE Risk Level:: Medical - moderate - high VTE Device Contraindication: Treatment Not Indicated VTE Drug Contraindication: N/A - Med Ordered
[2021-11-10 16:00] VITALS: BP 109/66; PULSE 84; RESP 16; TEMP 36.5; O2SAT 96
--- NOTE | 2021-11-10 17:09 | PC.NURSE ---
pt is alert and oriented x3. Pt continues to swear at staff for whatever he deems an infraction. He will also call people names and yell at the top of his voice if he asks for something and is not immediately brought to him.
[2021-11-11 08:00] VITALS: BP 102/57; PULSE 84; RESP 18; TEMP 36.7; O2SAT 97
[2021-11-11] MEDS: 0.9 % Sodium Chloride Flush 3 ML SYRINGE IVFLUSH (08:43)
[2021-11-11] MEDS: methADONE HCl 20 MG/2 ML ORAL.CONC 55 MG PO (08:44)
[2021-11-11] MEDS: cefTRIAXone sodium 2 GM in 0.9 % Sodium Chloride 50 ML IV (08:44)
--- NOTE | 2021-11-11 09:49 | HO.PM.IMPN ---
Subjective Subjective Date of Service: 11/11/21 Interval History: ?cc: cough, feeling unwell interval hisotry: improved opiate withdrawal Cardiovascular Cardiovascular: Reports no additional cardiovascular complaints Respiratory Respiratory: Reports no additional respiratory complaints Physical Exam Vital Signs: Vital Signs: Last Vital Signs Temp 98.1 F 11/11/21 08:00 Pulse 84 11/11/21 08:00 Resp 18 11/11/21 08:00 BP 102/57 L 11/11/21 08:00 Pulse Ox 97 11/11/21 08:00 BMI result Body Mass Index 21.9 General: AO X 3, no acute distress Resp:? CTA bilateral, no accessory muscles used CVS: S1,S2,RRR GI: soft, non tender, non distended Neuro:? motor grossly intact, alert Psych: appropriate affect, appropriate insight? Objective Data Active Medications Acetaminophen (Acetaminophen 325 Mg Tablet) 650 mg PO Q8H PRN PRN Reason: pain/fever Last Admin: 11/10/21 17:18 Dose: 650 mg Documented by: ANGEL Enoxaparin Sodium (Enoxaparin Sodium 40 Mg/0.4 Ml Syringe) 40 mg SUBCUT Q24H [facility] Last Admin: 11/10/21 14:10 Dose: Not Given Documented by: ANGEL Non-Admin Reason: Patient Refused Ceftriaxone Sodium 2 gm/ (Sodium Chloride) 50 mls @ 100 mls/hr IV Q24H [facility] Last Infusion: 11/11/21 09:28 Dose: 0 mls/hr Documented by: SHAKIRA Methadone HCl (Methadone Hcl 20 Mg/2 Ml Oral.Conc) 55 mg PO DAILY [facility] Last Admin: 11/11/21 08:44 Dose: 55 mg Documented by: SHAKIRA Ondansetron HCl (Ondansetron Hcl 4 Mg/2 Ml Vial) 4 mg IVPUSH Q8H PRN PRN Reason: Nausea and Vomiting Last Admin: 11/06/21 22:41 Dose: 4 mg Documented by: SEPIDEH Sodium Chloride (0.9 % Sodium Chloride Flush 3 Ml Syringe) 3 ml IVFLUSH QSHIFT [facility] Last Admin: 11/11/21 08:43 Dose: 3 ml Documented by: SHAKIRA Labs CBC & Chem 7: 11/07/21 08:55 11/09/21 10:51 Assessment and Plan (1) Polysubstance abuse: Status: Acute (2) Bacteremia: Status: Acute Assessment and Plan: ?30-year-old male with a past medical history of IV drug abuse, directed to the lower replacement, recurrent endocarditis, hepatitis-C, history of pulmonary embolism-noncompliant with Xarelto; recent admission to the hospital for endocarditis/streptococcal bacteremia; left AMA on 09/17/21 and 10/17/21interrupted antibiotic therapy; has been abusing drugs-cocaine and heroin; presented today to the hospital with a chief complaint of altered mental status changes and diffuse pain toxic metabolic encephlopathy due to polysubstance abuse and toxicity with opiates and cocaine back to baseline mental status opiate dependence with withdrawal much improved, continue methadone 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 positive 11/03/2021 am, negative so far 11/03/2021 PM continue rocephin to 2gm daily will need placement prior to picc end date would nov CT negative for vertebral involvement HCV oupatient follow up history of pulmonary embolism non compliant with xarelto, was likely septic embolism, will hold off on AC for now full code dvt prophylaxis with Lovenox Quality Stroke Does the patient have a stroke diagnosis?: No VTE Prior VTE?: Yes VTE Risk Level:: Medical - moderate - high VTE Device Contraindication: Treatment Not Indicated VTE Drug Contraindication: N/A - Med Ordered
[2021-11-11 12:00] VITALS: BP 111/60; PULSE 93; RESP 18; TEMP 36.6
--- NOTE | 2021-11-11 13:47 | MHC.RECOVRN ---
Met with pt in 384 to check in. Pt laying in bed, playing with stress ball and watching TV, does not appear in any distress. Pt denies withdrawal symptoms, however, is reporting pain in tailbone. Pt requesting pain medication. Last dose Dilaudid was 11/10. Pt does have Tylenol ordered, per RN, pt refuses. Pts vitals have not reflected pt experiencing pain, RN has not witnessed other nonverbal signs of pain. Discussed with Genia Benedict NP.
--- NOTE | 2021-11-11 14:04 | PC.NURSE ---
Pt, refused EKG earlier this morning. This nurse received a call from cardiology asking whether the patient would be willing to get an EKG and/or an echo cardiogram. This nurse explained the reasoning for the echo and ekg and why it was needed. Patient continues to refuse, message relayed to cardiology.
--- NOTE | 2021-11-11 16:25 | PC.NURSE ---
This nurse was told by nursing [employer] general supervisor that patient wanted to leave AMA, patient had been threatened to leave AMA d/t not getting strong enough pain medication. I offered tylenol that the doctor had prescribed but patient refused. This nurse reached out to recovery team as well. Dr. Durant was notified and patient was told the risks of leaving and patient still wants to leave. Patient is A/Ox4 and able to make decisions.
--- NOTE | 2021-11-11 17:39 | PM.EVENT ---
Event Note Date of Service: 11/11/21 Event Note: Patient has decided to leave AMA despite being advised that he has serious condition required IV antibiotics and can result in serious complication and even if not treated properly with IV antibiotics.. He states that he has gone through this many times and accept the risk, including and furthermore doesn't want Antibiotics even by mouth.. He intends to continue drug use. He is advised to return to this or other hosptial at any time to receive the care that he needs. RN was present for conversation
--- NOTE | 2021-11-12 10:17 | PM.DS ---
DS: Providers Provider Date of Service: 11/11/21 Date of admission: 11/03/21 12:20 Primary care physician: [facility] Consults: 11/04/21 09:47 Addiction Medicine Routine Consulting Provider: Tami Luna Reason for consultation: PSA 11/05/21 08:38 Consult to Infectious Diseases Routine Consulting Provider: Lena Plascencia Reason for consultation: strep endocarditis of bioprosthetic valve DS: Diagnosis Discharge Diagnosis (1) Polysubstance abuse: Status: Acute (2) Bacteremia: Status: Acute DS: Summary Hospital Course Hospital Course: patient had been readmitted for his incompletey treated strep endocarditis (as he had left several times AMA prior to completion) he had bacteremia on 11/03/21 and then cleared his cultures. he has a known tricuspid bioprosthetic valve vegetation and will require atleast 6 weeks IV antibiotics. plan was to eventually discharge to complete the 6 weeks at a SNF. however, patient decided to leave against medical advice (see note of Dr. Durant from 11/11/21). course was also complicated by opiate dependence with withdrawal. he was managed with methadone with guidance from addiction team specialists and withdrawal resolved. Time Spent with Patient Time attestation: Total time spent providing and/or coordinating discharge services: Discharge coordination time: Greater than 30 minutes Quality: Stroke Does the patient have a stroke diagnosis?: No Physical Exam Vital Signs: Vital Signs: Last Vital Signs Temp 97.9 F 11/11/21 12:00 Pulse 93 11/11/21 12:00 Resp 18 11/11/21 12:00 BP 111/60 11/11/21 12:00 Pulse Ox 97 11/11/21 08:00 BMI result Body Mass Index 21.9 General: AO X 3, no acute distress Resp: CTA bilateral, no accessory muscles used CVS: S1,S2,RRR GI: soft, non tender, non distended Neuro: motor grossly intact, alert Psych: appropriate affect, appropriate insight DS: Data Data Completed and Pending Completed studies during hospitalization [Text1]: Procedures Detoxification Services for Substance Abuse Treatment (09/11/21) Discharge Plan Discharge Patient Disposition: Left Against Medical Advice Discharge Diagnosis: endocarditits Referrals: [facility] [Primary Care Provider] - 1 Week Discharge Medications: No Action No Known Home Meds RF: 0 Discharge Orders: Discharge Order (Routine); Ordered 11/12/21 Ordered By: Gaurav Snowden Care Plan Goals: [facility] Concerns: endocarditis Plan of Treatment: cannot be treated properly outside of hospital Assessment: see abve Discharge Date/Time: 11/11/21 16:30
== END 2021-11-11 16:30 | disposition left against medical advice (07) | DRG 812 ==
LOC: HO.ED 08:36 → HO.EDOVER 13:20 → HO.S3 11-05 08:00
PROVIDERS: Internal Medicine; Admitting Provider Hospitalist; Emergency Provider Emergency Medicine; PCP Nurse Practitioner Family; Visit Provider Anesthesiology
DX: T40.601A Poisoning by unspecified narcotics, accidental (unintentional), initial encounter (principal); I33.0 Acute and subacute infective endocarditis; G92.8 Other toxic encephalopathy; R78.81 Bacteremia; T82.6XXA Infection and inflammatory reaction due to cardiac valve prosthesis, initial encounter; Z95.2 Presence of prosthetic heart valve; B95.4 Other streptococcus as the cause of diseases classified elsewhere; B19.20 Unspecified viral hepatitis C without hepatic coma; F11.23 Opioid dependence with withdrawal; F17.210 Nicotine dependence, cigarettes, uncomplicated; Z59.02 Unsheltered homelessness; Z71.6 Tobacco abuse counseling; Z20.822 Contact with and (suspected) exposure to COVID-19; Z91.14 Patient's other noncompliance with medication regimen; Z86.711 Personal history of pulmonary embolism; Z79.01 Long term (current) use of anticoagulants
CPT/HCPCS: 36415; 71045; 71275; 72132; 80048; 80053; 82947; 83605; 84484; 85025; 85027; 85379; 87040; 87077; 87147; 87186; 87205; 87635; 93005; 99285; J0696; J1170; J2060; J2405; J3370; Q9967

== ENCOUNTER 2021-11-17 23:55 | Inpatient (IN) | payer MEDICAID, SELFPAY ==
--- NOTE | ~2021-11-17 | XR_ITS ---
EXAMINATION: XR CHEST CLINICAL INFORMATION: Shortness of breath COMPARISON: 11/03/2021 TECHNIQUE: Frontal view of the chest was obtained. FINDINGS: Cardiac leads overlie the chest. Sternotomy hardware. Patchy opacities are seen with bronchial wall thickening. No pleural effusion or pneumothorax. The cardiomediastinal silhouette is normal in size. Abandoned epicardial pacer leads are noted. XR/XR chest 1V IMPRESSION: Increased bronchial wall thickening with patchy opacities may be infectious or inflammatory.
[2021-11-18] VITALS (14 sets, daily range): BP systolic 86–144; BP diastolic 44–98; PULSE 74–135; RESP 15–26; TEMP 36.1–38.1; O2SAT 93–100; BMI 22.8
--- NOTE | 2021-11-18 01:58 | ECG_ITS ---
Test Reason : DIZZINESS Blood Pressure : / mmHG Vent. Rate : 137 BPM Atrial Rate : 137 BPM P-R Int : 126 ms QRS Dur : 078 ms QT Int : 306 ms P-R-T Axes : 085 068 051 degrees QTc Int : 462 ms Sinus tachycardia with Premature atrial complexes with Aberrant conduction Possible Left atrial enlargement Incomplete right bundle branch block Abnormal ECG When compared with ECG of 09-NOV-2021 15:26, Rate is faster Nonspecific T wave abnormality, improved in Lateral leads Referred By: Aditi Mehta Electronically Signed By:VIOLET SULLIVAN
--- NOTE | 2021-11-18 02:13 | ED_ITS ---
HPI - SOB/Dyspnea General Chief Complaint: Dyspnea Stated Complaint: SOB/lower back pain Time Seen by Provider: 11/18/21 01:43 History of Present Illness HPI Narrative: Patient is a 31-year-old male with a history of endocarditis. History of polysubstance abuse. Signed out against medical advice on the . Patient initially presented on the . Was supposed to get a 30 day course of Rocephin. Patient signed out against medical advice. He admits to using cocaine. He admits to using heroin. Patient use IV drugs. No fever no chills. Generalized body ache. Patient not immunized for COVID. Positive history of bioprosthetic tricuspid valve. Related Data Home Medications Medication Instructions Recorded Confirmed No Known Home Meds 10/08/21 11/03/21 Allergies Allergy/AdvReac Type Severity Reaction Status Date / Time No Known Allergies Allergy Verified 11/03/21 05:31 [No Known Allergies*] Review of Systems Verdana 4l Review of Systems: Verdana 4d Positive generalized Verdana 4d malaise weakness Positive polysubstance abuse Verdana 4d Yes all other systems are reviewed and are negative [facility] Past Medical History Attestation statement: The following information was validated with the patient. Medical History Anasarca Bacteremia Bacteremia Endocarditis HCV (hepatitis C virus) Pulmonary embolism Right heart failure Steatosis, liver Tricuspid valve stenosis Surgical History History of tricuspid valve replacement with bioprosthetic valve Social History Social History Household Members: Other Household Members Other:: none. homeless Housing: Homeless Do you presently have visiting nurse or other home services: No Unable to assess alcohol history related to: Refusing to respond Alcohol intake: never Patient Tobacco Use Status: Current everyday Tobacco user Tobacco use type: Cigarette Smoked in Last 30 Days: No Second Hand Smoke Exposure: No Use of substances other than those prescribed or required for medical reasons: No Substance Use Type: Heroin Advance Directives: Yes Advance Directives on File: Yes Advance Directives Date on File: 04/16/21 service: No Current occupational status: unemployed Physical Exam Verdana 4l Vital Signs: Verdana 4d Verdana 4d Vital Signs: Verdana 4d Verdana 4Bd Last Vital Signs Verdana 4d [place] New 4d Juan Ramon New 4d Temp 100.5 F H 11/18/21 03:02 [place] New 4d Pulse 76 11/18/21 04:59 Juan Ramon New 4d Resp 20 11/18/21 04:59 BP 144/98 H 11/18/21 04:59 Pulse Ox 94 11/18/21 04:59 BMI result Body Mass Index 22.8 Appearance: Alert. Oriented X3. No acute distress. Eyes: Pupils equal, round and reactive to light. ENT: Pharynx normal. Neck: Normal inspection. Neck supple. No lymph nodes noted. No crepitus CVS: Tachycardic but regular positive systolic murmur 12/22 Respiratory: No respiratory distress. Breath sounds normal. No Wheezing. No rales Abdomen: Soft and nontender. No rigidity. No distention. good BS x4 Skin: Skin warm and dry. Normal skin color. Normal skin turgor. Extremities: No lower extremity edema. Neurovascular intact to all extremities. No Lacerations. No Rash Neuro: Oriented X 3. No motor deficit. No sensory deficit. Moving all extermities. No slurred speech MDM - SOB/Dyspnea MDM Narrative Medical decision making narrative: Positive history of polysubstance abuse. Injected cocaine and heroin. Patient left AMA on the 13 of November. Came back today because now he wants treatment. Patient had a white count of 31. This is new when compared to previous. He has not been compliant with any of his medications including blood thinners. He did not take any antibiotics. Patient admits to using recreational drugs. Unable to obtain CTA secondary to patient's kidney function. Will start patient on Lovenox for possible PE. Patient has a prosthetic valve with a known vegetation. Will start patient back on the Rocephin 2 g which patient was on during the admission. Lactate was elevated. In the setting of elevated white count. Patient was given a total of 30 cc/kilos IV fluid. 2.5 L was ordered. Will recheck lactate afterwards. Will discuss patient's case with the hospitalist service. Currently in guarded condition Patient's EKG showed a sinus pattern heart rate was 140 CO QRS QT within normal limits there is no acute ST segment elevation there is T-wave inversion over V1 V2 V3. Lab Data Attestation: I reviewed the patient's lab results. Result diagrams: 11/18/21 03:31 11/18/21 02:44 Labs: Lab Results 11/18/21 11/18/21 11/18/21 Range/Units 02:43 02:44 02:44 WBC 30.0 H* (4.8-10.8) X10*3/uL RBC 4.13 L (4.60-5.80) X10*6/uL Hgb 10.0 L (14.0-18.0) g/dl Hct 32.0 L (42.0-52.0) % MCV 77.5 L (80.0-98.0) fL MCH 24.2 L (27.0-33.0) pg MCHC 31.3 (31.0-36.0) g/dl RDW 18.9 H (11.0-16.0) % Plt Count 203 D (160-400) X10*3/uL MPV 10.8 (9.4-12.4) fL Immature Gran % (Auto) 1.0 H (0.0-0.4) % Neut % (Auto) 84.7 H (45-73) % Lymph % (Auto) 5.3 L (20-40) % [place] % (Auto) 8.6 (2-11) % Eos % (Auto) 0.2 (0-4) % Baso % (Auto) 0.2 (0-2) % Lymph # (Auto) 1.6 (1.2-4.9) X10*3/uL [place] # (Auto) 2.6 H (0.1-1.2) X10*3/uL Eos # (Auto) 0.1 (0.0-0.4) X10*3/uL Baso # (Auto) 0.1 (0.0-0.2) X10*3/uL Abs Immat Gran (auto) 0.29 H (0.00-0.03) X10*3/uL Absolute Neuts (auto) 25.4 H (2.0-8.3) x10*3/uL Absolute Nucleated RBC 0.000 (0.0-0.012) X10*3/uL Nucleated RBC % (auto) 0.0 (0.0-0.2) /100WBC Smear Tech's Comments VERIFIED PT (9.9-13.0) SEC INR (0.9-1.1) APTT (24.1-38.0) SEC Sodium 137 (135-145) mmol/L Potassium 3.7 (3.3-5.1) mmol/L Chloride 106 (96-108) mmol/L Carbon Dioxide 20 L (22-29) mmol/L Anion Gap 15 (12-20) BUN 22 H (9-16) mg/dL Creatinine 1.59 H (0.5-1.4) mg/dL Estim Creat Clear Calc 63.5 Estimated GFR 50 Random Glucose 69 (60-115) mg/dL Lactic Acid 2.8 H* (0.5-2.0) mmol/L Calcium 8.9 (8.4-10.2) mg/dL Troponin I High Sens (<3.5-35.0) ng/L B-Natriuretic Peptide (<100) pg/mL COVID-19 ([facility]) (Negative) COVID-19 Clin Com 11/18/21 11/18/21 11/18/21 Range/Units 02:44 02:44 03:31 WBC 31.2 H* (4.8-10.8) X10*3/uL RBC 3.81 L (4.60-5.80) X10*6/uL Hgb 9.3 L (14.0-18.0) g/dl Hct 29.5 L (42.0-52.0) % MCV 77.4 L (80.0-98.0) fL MCH 24.4 L (27.0-33.0) pg MCHC 31.5 (31.0-36.0) g/dl RDW 18.9 H (11.0-16.0) % Plt Count 180 (160-400) X10*3/uL MPV 10.6 (9.4-12.4) fL Immature Gran % (Auto) (0.0-0.4) % Neut % (Auto) (45-73) % Lymph % (Auto) (20-40) % [place] % (Auto) (2-11) % Eos % (Auto) (0-4) % Baso % (Auto) (0-2) % Lymph # (Auto) (1.2-4.9) X10*3/uL [place] # (Auto) (0.1-1.2) X10*3/uL Eos # (Auto) (0.0-0.4) X10*3/uL Baso # (Auto) (0.0-0.2) X10*3/uL Abs Immat Gran (auto) (0.00-0.03) X10*3/uL Absolute Neuts (auto) (2.0-8.3) x10*3/uL Absolute Nucleated RBC 0.000 (0.0-0.012) X10*3/uL Nucleated RBC % (auto) 0.0 (0.0-0.2) /100WBC Smear Tech's Comments PT (9.9-13.0) SEC INR (0.9-1.1) APTT (24.1-38.0) SEC Sodium (135-145) mmol/L Potassium (3.3-5.1) mmol/L Chloride (96-108) mmol/L Carbon Dioxide (22-29) mmol/L Anion Gap (12-20) BUN (9-16) mg/dL Creatinine (0.5-1.4) mg/dL Estim Creat Clear Calc Estimated GFR Random Glucose (60-115) mg/dL Lactic Acid (0.5-2.0) mmol/L Calcium (8.4-10.2) mg/dL Troponin I High Sens 39.3 H D (<3.5-35.0) ng/L B-Natriuretic Peptide 453 H (<100) pg/mL COVID-19 ([facility]) Negative (Negative) COVID-19 Clin Com See Note 11/18/21 Range/Units 03:31 WBC (4.8-10.8) X10*3/uL RBC (4.60-5.80) X10*6/uL Hgb (14.0-18.0) g/dl Hct (42.0-52.0) % MCV (80.0-98.0) fL MCH (27.0-33.0) pg MCHC (31.0-36.0) g/dl RDW (11.0-16.0) % Plt Count (160-400) X10*3/uL MPV (9.4-12.4) fL Immature Gran % (Auto) (0.0-0.4) % Neut % (Auto) (45-73) % Lymph % (Auto) (20-40) % [place] % (Auto) (2-11) % Eos % (Auto) (0-4) % Baso % (Auto) (0-2) % Lymph # (Auto) (1.2-4.9) X10*3/uL [place] # (Auto) (0.1-1.2) X10*3/uL Eos # (Auto) (0.0-0.4) X10*3/uL Baso # (Auto) (0.0-0.2) X10*3/uL Abs Immat Gran (auto) (0.00-0.03) X10*3/uL Absolute Neuts (auto) (2.0-8.3) x10*3/uL Absolute Nucleated RBC (0.0-0.012) X10*3/uL Nucleated RBC % (auto) (0.0-0.2) /100WBC Smear Tech's Comments PT 24.8 H (9.9-13.0) SEC INR 2.1 H (0.9-1.1) APTT 36.4 (24.1-38.0) SEC Sodium (135-145) mmol/L Potassium (3.3-5.1) mmol/L Chloride (96-108) mmol/L Carbon Dioxide (22-29) mmol/L Anion Gap (12-20) BUN (9-16) mg/dL Creatinine (0.5-1.4) mg/dL Estim Creat Clear Calc Estimated GFR Random Glucose (60-115) mg/dL Lactic Acid (0.5-2.0) mmol/L Calcium (8.4-10.2) mg/dL Troponin I High Sens (<3.5-35.0) ng/L B-Natriuretic Peptide (<100) pg/mL COVID-19 ([facility]) (Negative) COVID-19 Clin Com Critical Care Time Critical Care Time Total Critical Care Time: 40 Attestation: I have personally provided 40 minutes of critical care time exclusive of time spent on separately billable procedures. Time includes review of lab data, radiology results, discussion with consultants, and monitoring for potential decompensation. Interventions were performed as documented above Discharge Plan Discharge Clinical Impression: Endocarditis Patient Disposition: Admitted As Inpatient
[2021-11-18 02:50] LABS: Basophils Absolute Auto 0.1 X10*3/uL (0.0-0.2); Basophils Percent Auto 0.2 % (0-2); Eosinophils Absolute Auto 0.1 X10*3/uL (0.0-0.4); Eosinophils Percent Auto 0.2 % (0-4); Imm Gran Abs Auto 0.29 X10*3/uL (0.00-0.03); Lymphocytes Absolute Auto 1.6 X10*3/uL (1.2-4.9); Lymphocytes Percent Auto 5.3 % (20-40); Mean Corpuscular HGB Conc 31.3 g/dl (31.0-36.0); Mean Corpuscular Hemoglobin 24.2 pg (27.0-33.0); Mean Corpuscular Volume 77.5 fL (80.0-98.0); Mean Platelet Volume 10.8 fL (9.4-12.4); Monocytes Absolute Auto 2.6 X10*3/uL (0.1-1.2); Monocytes Percent Auto 8.6 % (2-11); Neutrophils Absolute Auto 25.4 x10*3/uL (2.0-8.3); Neutrophils Percent Auto 84.7 % (45-73); Platelet Count 203 X10*3/uL (160-400); Red Blood Count 4.13 X10*6/uL (4.60-5.80); Red Cell Distribution Width 18.9 % (11.0-16.0); SCAN SMEAR FLAG 1
[2021-11-18 02:59] LABS: MANUAL DIFF FLAG SCAN
[2021-11-18 03:04] LABS: Anion Gap 15 (12-20); Blood Urea Nitrogen 22 mg/dL (9-16); Calcium 8.9 mg/dL (8.4-10.2); Carbon Dioxide 20 mmol/L (22-29); Chloride 106 mmol/L (96-108); Creatinine Clr Calc Pharmacy 63.5; Estimated Glomerular Filt Rate 50; Glucose Random 69 mg/dL (60-115); Potassium 3.7 mmol/L (3.3-5.1); Sodium 137 mmol/L (135-145)
[2021-11-18 03:06] LABS: COVID-19 Test Negative (Negative); IDNOW Serial# 9DD0AD1C
[2021-11-18 03:09] LABS: B Type Natriuretic Peptide 453 pg/mL (<100); Troponin-I High Sensitivity 39.3 ng/L (<3.5-35.0)
[2021-11-18 03:10] LABS: Lactic Acid 2.8 mmol/L (0.5-2.0)
[2021-11-18 03:18] LABS: SLIDE REVIEW VERIFIED
[2021-11-18 03:36] LABS: Hematocrit 29.5 % (42.0-52.0); Hemoglobin 9.3 g/dl (14.0-18.0); Mean Corpuscular HGB Conc 31.5 g/dl (31.0-36.0); Mean Corpuscular Hemoglobin 24.4 pg (27.0-33.0); Mean Corpuscular Volume 77.4 fL (80.0-98.0); Mean Platelet Volume 10.6 fL (9.4-12.4); Platelet Count 180 X10*3/uL (160-400); Red Blood Count 3.81 X10*6/uL (4.60-5.80); Red Cell Distribution Width 18.9 % (11.0-16.0)
[2021-11-18 03:37] LABS: White Blood Count 31.2 X10*3/uL (4.8-10.8)
[2021-11-18] MEDS: 0.9 % Sodium Chloride 1,000 ML 999 ML IV ×3 (03:39→03:40)
[2021-11-18] MEDS: cefTRIAXone sodium 2 GM in 0.9 % Sodium Chloride 50 ML IV (03:39)
[2021-11-18 03:43] LABS: INTERNATIONAL NORM RATIO 2.1 (0.9-1.1); Prothrombin Time 24.8 SEC (9.9-13.0)
[2021-11-18 03:46] LABS: Partial Thromboplastin Time 36.4 SEC (24.1-38.0)
[2021-11-18] MEDS: Enoxaparin Sodium 80 MG/0.8 ML SYRINGE 70 MG SUBCUT (03:56)
--- NOTE | 2021-11-18 04:42 | PC.NURSE ---
provider made aware of low bp. ivf 2l being bolused in at this time.
[2021-11-18] MEDS: 0.9 % Sodium Chloride 500 ML 999 ML IV (04:44)
[2021-11-18 04:48] LABS: Reflex Lactate? Lactic Acid Added
--- NOTE | 2021-11-18 05:25 | PC.NURSE ---
2.5 liter ns completed hospitalist at bedside. repeat lactic being drawn at this time. pt clari out for no reason. no response to questions asked about pain yet pt is awake alert and doesnt like being touched.
[2021-11-18 05:52] LABS: ~Lactic Acid-LAB USE ONLY 1.9 mmol/L (0.5-2.0)
--- NOTE | 2021-11-18 06:32 | P.HPHOSP_ITS ---
History of Present Illness Date of Service: 11/18/21 Chief Complaint: homesless, SOB This is a 31-year-old male with past medical history of IV drug abuse, recurrent endocarditis, hepatitis-C, history of pulmonary embolism noncompliant with Xarelto, history of known bioprosthetic tricuspid valve endocarditis not fully treated. Who has recurrent admissions to the hospital for sepsis/bacteremia post signs out AMA each time. Patient was recently admitted to the hospital from 11/04 and left against medical advice on 11/11. At that time patient was being treated for recurrent strep sanguinous bacteremia and was to complete a 6 week IV antibiotic regimen but once again left AMA. He returns today septic, and not doing well. Patient is very somnolent, moaning and groaning and unable to give much history to me. He appears intoxicated and not able to give much history. On arrival to the ED patient found to have a temp of a 100.5?, heart rate of 123, blood pressure of 80s-90s systolic over 50s, he receives septic fluid with blood pressure improving to a MAP of 69. Labs are significant for WBC count 31.2, hemoglobin of 9.3, hematocrit of 29.9, MCV of 77.4, INR of 2.1, creatinine of 1.59, with a baseline around 0.85. Lactic acid of 2.8, BNP of 453, troponin of 39.3 COVID 19-ve Chest x-ray shows increased bronchial wall thickening with patchy opacities may be infectious Or inflammatory patient will be admitted for further management Review of Systems Verdana 4l Review of Systems: Yes Unobtainable due to mental status Verdana 4d [facility] Medical History Anasarca Bacteremia Bacteremia Endocarditis HCV (hepatitis C virus) Pulmonary embolism Right heart failure Steatosis, liver Tricuspid valve stenosis Pertinent family history: Unknown family hx Surgical History History of tricuspid valve replacement with bioprosthetic valve Social History Household Members: Other Household Members Other:: none. homeless Housing: Homeless Do you presently have visiting nurse or other home services: No Unable to assess alcohol history related to: Refusing to respond Alcohol intake: never Patient Tobacco Use Status: Current everyday Tobacco user Tobacco use type: Cigarette Smoked in Last 30 Days: No Second Hand Smoke Exposure: No Use of substances other than those prescribed or required for medical reasons: No Substance Use Type: Heroin Advance Directives: Yes Advance Directives on File: Yes Advance Directives Date on File: 04/16/21 service: No Current occupational status: unemployed Meds Allergies Allergy/AdvReac Type Severity Reaction Status Date / Time No Known Allergies Allergy Verified 11/03/21 05:31 [No Known Allergies*] Active Medications: Current Medications Acetaminophen (Acetaminophen 325 Mg Tablet) 650 mg PO Q6H PRN PRN Reason: Pain, Mild (Pain Scale 1-3) Docusate Sodium (Docusate Sodium 100 Mg Capsule) 100 mg PO DAILY PRN PRN Reason: Constipation Enoxaparin Sodium (Enoxaparin Sodium 40 Mg/0.4 Ml Syringe) 40 mg SUBCUT Q24H CRISTINA Lactated Ringer's (Lr) 1,000 mls @ 100 mls/hr IVCONT .Q10H CRISTINA Ceftriaxone Sodium 2 gm/ (Sodium Chloride) 50 mls @ 100 mls/hr IV Q24H CRISTINA Ondansetron HCl (Ondansetron Hcl 4 Mg/2 Ml Vial) 4 mg IVPUSH Q8H PRN PRN Reason: Nausea and Vomiting Home Medications Medication Instructions Recorded Confirmed Last Taken Type No Known Home Meds 10/08/21 11/03/21 Unknown History Physical Exam Verdana 4l Vital Signs and Narrative: Verdana 4d Verdana 4d Vital Signs: Verdana 4d Verdana 4Bd Last Vital Signs Verdana 4d 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 Temp 98.7 F 11/18/21 05:11 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 Pulse 96 11/18/21 06:17 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 Resp 18 11/18/21 06:17 BP 100/60 11/18/21 06:17 Pulse Ox 96 11/18/21 06:17 BMI result Body Mass Index 22.8 Const: Other: somnolent , keeps falling asleep , cant stay awake, when he does wake up he is crying and moaning saying the iv line hurts Eyes: General: appearance normal, both eyes and all related structures Resp: Other: crackles bilaterally Effort & Inspection: normal respiratory effort Cardio: Rate: regular rate Rhythm: regular rhythm GI: Palpation (GI): Soft to palpation Auscultation: normal bowel sounds Skin: General skin exam: no rashes or lesions noted Extrem: General: Yes normal to inspection and Yes no pedal edema Results Labs CBC and Chem 7: 11/18/21 03:31 11/18/21 02:44 Labs: Laboratory Results - last 24 hr 11/18/21 11/18/21 11/18/21 02:43 02:44 02:44 MCV 77.5 L MCH 24.2 L MCHC 31.3 RDW 18.9 H Plt Count 203 D MPV 10.8 Immature Gran % (Auto) 1.0 H Neut % (Auto) 84.7 H Lymph % (Auto) 5.3 L Isabella % (Auto) 8.6 Eos % (Auto) 0.2 Baso % (Auto) 0.2 Lymph # (Auto) 1.6 Isabella # (Auto) 2.6 H Eos # (Auto) 0.1 Baso # (Auto) 0.1 Abs Immat Gran (auto) 0.29 H Absolute Neuts (auto) 25.4 H Absolute Nucleated RBC 0.000 Nucleated RBC % (auto) 0.0 Smear Tech's Comments VERIFIED PT INR APTT Anion Gap 15 Estim Creat Clear Calc 63.5 Estimated GFR 50 Random Glucose 69 Lactic Acid 2.8 H* Lactic Acid F/U @ 2Hr Calcium 8.9 Troponin I High Sens B-Natriuretic Peptide COVID-19 ([facility]) COVID-19 Clin Com 11/18/21 11/18/21 11/18/21 02:44 02:44 03:31 MCV 77.4 L MCH 24.4 L MCHC 31.5 RDW 18.9 H Plt Count 180 MPV 10.6 Immature Gran % (Auto) Neut % (Auto) Lymph % (Auto) Isabella % (Auto) Eos % (Auto) Baso % (Auto) Lymph # (Auto) Isabella # (Auto) Eos # (Auto) Baso # (Auto) Abs Immat Gran (auto) Absolute Neuts (auto) Absolute Nucleated RBC 0.000 Nucleated RBC % (auto) 0.0 Smear Tech's Comments PT INR APTT Anion Gap Estim Creat Clear Calc Estimated GFR Random Glucose Lactic Acid Lactic Acid F/U @ 2Hr Calcium Troponin I High Sens 39.3 H D B-Natriuretic Peptide 453 H COVID-19 ([facility]) Negative COVID-19 Clin Com See Note 11/18/21 11/18/21 03:31 05:38 MCV MCH MCHC RDW Plt Count MPV Immature Gran % (Auto) Neut % (Auto) Lymph % (Auto) Isabella % (Auto) Eos % (Auto) Baso % (Auto) Lymph # (Auto) Isabella # (Auto) Eos # (Auto) Baso # (Auto) Abs Immat Gran (auto) Absolute Neuts (auto) Absolute Nucleated RBC Nucleated RBC % (auto) Smear Tech's Comments PT 24.8 H INR 2.1 H APTT 36.4 Anion Gap Estim Creat Clear Calc Estimated GFR Random Glucose Lactic Acid Lactic Acid F/U @ 2Hr 1.9 Calcium Troponin I High Sens B-Natriuretic Peptide COVID-19 ([facility]) COVID-19 Clin Com Imaging Radiologist's Impressions: Impressions Chest X-Ray 11/18/21 04:00 IMPRESSION: Increased bronchial wall thickening with patchy opacities may be infectious or inflammatory. Assessment and Plan (1) Severe sepsis: Status: Acute (2) Endocarditis: Status: Acute (3) Pneumonia: Status: Acute (4) Bacteremia: Status: Acute (5) Polysubstance abuse: Status: Acute (6) Endocarditis of tricuspid valve: Status: Acute (7) LUCERO (acute kidney injury): Status: Acute Plan Male with recurrent admissions for recurrent endocarditis, Gram-negative bacteremia with strep sanguinous, has a history of noncompliance and leaving AMA with most recent admission to the hospital from 11/04 to 11/11 returns to the hospital today severe sepsis # severe sepsis - hypotensive, requiring 30 cc/kg of fluids - lactic acidosis, febrile, leukocytosis, tachycardic - most likely multifactorial secondary to Gram-negative bacteremia as well as pneumonia - has history of strep sanguinous back to with signing out AMA and not complaining 6 weeks of IV antibiotics - there is evidence of pneumonia on chest x-ray - at this time will treat with broad-spectrum IV antibiotics - repeat blood cultures - of note cultures from 11/03 were negative and patient was to be discharged on 6 weeks of ceftriaxone IV # recurrent strep sanguinis bacteremia with known bioprosthetic tricuspid valve endocarditis, not fully treated - was to be treated with 6 weeks of IV ceftriaxone but patient left AMA on 11/11 - given the recurrent sepsis, and unknown current cultures will treat with Zosyn and vancomycin - follow cultures - infectious Disease consulted # pneumonia - this likely hospital-acquired - has evidence of by of lateral infiltrates on chest x-ray - recent hospitalization - will treat with IV antibiotics - Follow cultures - monitor respiratory status # history of check us bid valve endocarditis - IV antibiotics as above - echocardiogram from 10/10 showed a normally functioning bioprosthetic tricuspid valve - if cultures positive, will consider repeating echocardiogram # lactic acidosis - IV fluids # LUCERO - likely pre-renal 2/2 sepsis - iv fluids - follow bmp # opioid use disorder - care team consulted DVT ppx: lovenox Quality Stroke Does the patient have a stroke diagnosis?: No VTE Prior VTE?: No VTE Risk Level:: Medical - moderate - high VTE Device Contraindication: Treatment Not Indicated VTE Drug Contraindication: N/A - Med Ordered
[2021-11-18] MEDS: Lactated Ringers 1,000 ML 100 ML IVCONT (06:53)
--- NOTE | 2021-11-18 07:02 | PHA.MEDREC ---
Pharmacy Consult ? Medication Reconciliation Pharmacy has completed the medication reconciliation. Patient left AMA on 11/11, no changes. Med Rec last completed by Elayne. Yany Donis, KarinaD
--- NOTE | 2021-11-18 07:04 | PHA.PROG ---
Admission Date/Time: November 18, 2021 06:30 Indication: Bactermia, endocarditis Weight in k.039 kg Adjusted body weight in K.25 kg [place] body weight in K.4 kg Obesity Dosing Indication % IBW: No Serum Creatinine - Last 168 Hours 11/18/21 02:44 Creatinine 1.59 H Estimated CrCl and GFR - Last 168 Hours 11/18/21 02:44 Estim Creat Clear Calc 63.5 Estimated GFR 50 Vancomycin Loading Dose: 1500 mg Current Vancomycin Dosing Regimen: 750 mg Q12H Date and Time for next Vancomycin Level to be drawn: 11/19 @ 1900 Pharmacist Comments on Vancomycin Plan: Administer loading dose vanco 1500 mg (22 mg/kg) on 11/18 @ 0900. Start maintenance dose vancomycin 750 mg on 11/18 @ 2100. Expected AUC 536 with a trough of 17.9. Patient was previously on 1000 mg Q12H at last visit with a trough of 12. Patient renal function has decrease since last on vancomycin here therefore we will start at a decresed dose. Patient dose have a history of refusing labs to be drawn Trough to be drawn prior to 4th dose on 11/19 @ 1900. Pharmacy will monitor renal function daily. Yany Donis PharmD Vancomycin dosing will take advantage of [employer] as a clinical decision support tool that uses Bayesian modeling to calculate individual patient's pharmacokinetic parameters and forecast the patient's drug concentration time course with the target goal AUC 24 range of 400 - 600 mg/L/hr.
--- NOTE | 2021-11-18 09:31 | MHC.CM.PN ---
PT SLEEPING HOWEVER WELL KNOWN TO CM PT IS INDEPENDENT WITH ALL CARE AND MOBILITY PT IS HOMELESS AND DOES NOT TYPICALLY UTILIZE SHELTERS PT USES THE [facility] FOR PRIMARY CARE NEEDS PT HAS A HCP ON FILE PT HAS BEEN ADMITTED MULTIPLE TIMES IN THE RECENT PAST WITH A TREATMENT PLAN OF IV ABX IN A SNF HOWEVER HE HAS LEFT AGAINST MEDICAL ADVICE EACH TIME. CM CONTACT CARD LEFT FOR PT REFERRALS PLACED IN ANTICIPATION OF SIMILAR TREATMENT NEEDS A BROAD REFERRAL WAS PLACED DUE TO MULTIPLE PLACEMENT BARRIERS INCLUDING: IVDA, NOT BEING VACCINATED AGAINST COVID-19, HOMELESSNESS, AND A HISTORY OF LEAVING AMA
[2021-11-18] MEDS: Piperacillin Sodium/Tazobactam 3.375 GM in 0.9 % Sodium Chloride 50 ML IV ×3 (11:59→20:53)
[2021-11-18] MEDS: vancomycin HCL 1,500 MG in 0.9 % Sodium Chloride 500 ML 333.33 MG IV (11:59)
--- NOTE | 2021-11-18 12:32 | PM.EVENT ---
Event Note Date of Service: 11/18/21 Event Note: 31 M with PMH of IVDA, endocarditis, tricuspid valve stenosis, pulmonary embolism on Xarelto-noncompliant, history of hep C, IV drug abuse/opiate dependence, history of bacteremia, hepatic steatosis, history of tricuspid valve replacement with bioprosthetic valve,in July of 2021 admitted to [facility] for endocarditis-left AMA, interrupted antibiotic therapy has had multiple admissions to [facility],with most recent admission to the hospital from 11/04 to 11/11 patient left against medical advice, was supposed to receive 6 weeks of IV antibiotic for Streptococcus sanguinous/ Streptococcus viridans pneumonia , patient presented to ER with generalized malaise, weakness and pain, admitted use of cocaine and heroin. On arrival to the ED patient found to have a temp of a 100.5?, heart rate of 123, blood pressure of 80s-90s/50s, received septic fluid with blood pressure improving to a MAP of 69. Labs are significant for WBC count 31.2, hemoglobin of 9.3, hematocrit of 29.9, MCV of 77.4, INR of 2.1, creatinine of 1.59, with a baseline around 0.85.? Lactic acid of 2.8, BNP of 453, troponin of 39.3 COVID 19-ve Chest x-ray shows increased bronchial wall thickening with patchy opacities may be infectious? Or inflammatory patient will be admitted for further management Echocardiogram 10 10 showed EF 50-55%, likely small vegetation measuring 1.6 inter 0.6 cm attached to the tricuspid valve this a.m. patient is somnolent but easily arousable, complain of pain unable to elaborate since falls right back to sleep. A/P # severe sepsis due to pneumonia/ known bioprosthetic tricuspid valve endocarditis not fully treated - hypotensive, Lactic acidosis, febrile, leukocytosis, tachycardic - most likely multifactorial secondary to bacteremia due to endocarditis/ pneumonia continue IV vanco/Zosyn day 1 blood cultures from 11/03 were negative and patient was to be discharged on 6 weeks of iv ceftriaxone but left AMA on 11/11 will repeat echocardiogram if blood cultures return positive. CT lumbar spine 11/09 showed no fracture or paraspinal abscess await ID input # pneumonia - likely hospital-acquired vs septic emboli - has evidence of by of lateral infiltrates on chest x-ray continue IV antibiotics as above, Follow cultures and monitor respiratory status # lactic acidosis - IV fluids # LUCERO - likely pre-renal 2/2 sepsis - iv fluids - follow bmp # opioid use disorder - obtain Addiction Team consult # DVT prophylaxis with Lovenox
[2021-11-18 16:27] LABS: Appearance Urine HAZY; Color Urine YELLOW; Glucose Urine UA NEG (NEG); Leukocyte Esterase Urine NEG (NEG); Nitrite Urine NEG (NEG); Specific Gravity - Urine 1.015 (1.005-1.025); UACC Culture Trigger NO; Urine Blood 3+ (NEG); Urine Ketones NEG (NEG); Urine Protein 2+ MG/DL (NEG-TRACE)
[2021-11-18 16:31] LABS: Amphetamine Screen Urine Not Detected (Not Detect); Barbiturates, Urine Not Detected (Not Detect); Benzodiazepines Screen Urine Not Detected (Not Detect); Cannabinoid Screen Urine POSITIVE (Not Detect); Cocaine Screen Urine POSITIVE (Not Detect); Fentanyl, urine POSITIVE (Not Detect); Opiate Screen Urine POSITIVE (Not Detect); Phencyclidine Screen Urine Not Detected (Not Detect)
--- NOTE | 2021-11-18 16:36 | P.CNID_ITS ---
History of Present Illness Data of Consult Service Date: 11/18/21 Requesting physician: Janeen Long Primary Care Provider: [employer] [employer] MARLENE Reason for consult: recurrent fever He presents again to hospital for fevers to 100.5 and weakness He has had strep sanguinous bacteremia He has tricuspid valve endocarditis and keeps signing out AMA. The last visit was 11/04-11/11 and signed out AMA 6 weeks IV antibiotics was recommended Review of Systems Review of Systems: Yes all other systems are reviewed and are negative [facility] Past Medical History Medical History Anasarca Bacteremia Bacteremia Endocarditis HCV (hepatitis C virus) Pulmonary embolism Right heart failure Steatosis, liver Tricuspid valve stenosis Family History Family history: reviewed and not pertinent Surgical History Surgical History History of tricuspid valve replacement with bioprosthetic valve Social History Social History Household Members: None Household Members Other:: none. homeless Housing: Homeless Do you presently have visiting nurse or other home services: No Unable to assess alcohol history related to: Refusing to respond Alcohol intake: current Alcohol intake frequency: 3 or more drinks per day Patient Tobacco Use Status: Tobacco use Unknown Tobacco use type: Cigarette Cigarette Packs Per Day: 1 Cigarettes Per Day: 20.0 Years Smoked: 10 Second Hand Smoke Exposure: No Use of substances other than those prescribed or required for medical reasons: Yes Substance Use Type: Heroin Advance Directives: No Advance Directives on File: No Advance Directives Date on File: 04/16/21 service: No Current occupational status: unemployed Meds Allergies Allergy/AdvReac Type Severity Reaction Status Date / Time No Known Allergies Allergy Verified 01/05/22 21:17 [No Known Allergies*] Active Medications: Current Medications Acetaminophen (Acetaminophen 325 Mg Tablet) 650 mg PO Q6H PRN PRN Reason: Pain, Mild (Pain Scale 1-3) Docusate Sodium (Docusate Sodium 100 Mg Capsule) 100 mg PO DAILY PRN PRN Reason: Constipation Enoxaparin Sodium (Enoxaparin Sodium 40 Mg/0.4 Ml Syringe) 40 mg SUBCUT Q24H CRISTINA Lactated Ringer's (Lr) 1,000 mls @ 100 mls/hr IVCONT .Q10H [facility] Last Admin: 11/18/21 06:53 Dose: 100 mls/hr Documented by: Piperacillin Sod/Tazobactam (Sod 3.375 gm/ Sodium Chloride) 50 mls @ 100 mls/hr IV Q6H [facility] Last Admin: 11/18/21 15:21 Dose: 100 mls/hr Documented by: Vancomycin HCl 750 mg/ Sodium (Chloride) 265 mls @ 265 mls/hr IV Q12H [facility] Ondansetron HCl (Ondansetron Hcl 4 Mg/2 Ml Vial) 4 mg IVPUSH Q8H PRN PRN Reason: Nausea and Vomiting Pharmacy Consult (Consult Rx Vancomycin Dosing) 1 each MISCELLANE DAILY PRN PRN Reason: Consult order Home Medications Medication Instructions Recorded Confirmed Last Taken Type No Known Home Meds 10/08/21 12/12/21 Unknown History Physical Exam Vital Signs: Vital Signs: Last Vital Signs Temp 98.7 F 11/18/21 05:11 Pulse 99 11/18/21 06:53 Resp 18 11/18/21 06:53 BP 93/46 L 11/18/21 06:53 Pulse Ox 95 11/18/21 06:53 BMI result Body Mass Index 22.8 Const: General: cooperative HENMT: Head: Yes normal to inspection Mouth: Normal oral and palatal mucosa present Resp: Effort & Inspection: normal respiratory effort Cardio: Other: 2/6 PAULO Rate: regular rate Rhythm: regular rhythm GI: Palpation (GI): Soft to palpation and nontender Skin: General skin exam: no rashes or lesions noted Results Labs CBC & Chem 7: 11/20/21 09:18 11/22/21 10:07 Labs: Short CBC 11/18/21 11/18/21 Range/Units 02:43 03:31 WBC 30.0 H* 31.2 H* (4.8-10.8) X10*3/uL Hgb 10.0 L 9.3 L (14.0-18.0) g/dl Hct 32.0 L 29.5 L (42.0-52.0) % Plt Count 203 D 180 (160-400) X10*3/uL BMP 11/18/21 02:44 Sodium 137 Potassium 3.7 Chloride 106 Carbon Dioxide 20 L BUN 22 H Creatinine 1.59 H Calcium 8.9 Urine 11/18/21 Range/Units 16:12 Urine Color YELLOW Urine Appearance HAZY Urine pH 6.0 (5.0-8.0) Ur Specific [place] 1.015 (1.005-1.025) Urine Protein 2+ H (NEG-TRACE) MG/DL Urine Glucose (UA) NEG (NEG) MG/DL Assessment and Plan (1) Endocarditis of tricuspid valve: Status: Acute He most likely has prosthetic valve endocarditis He has tricuspid valve endocariditis Possible strep sanguinous (2) Tricuspid valve vegetation: Status: Acute (3) Pneumonia: Status: Resolved Plan Continue Ceftriaxone Will be able to stop atypical coverage now as is unlikely Prognosis guarded as he is nonadherent despite risk of from not taking antibiotics Check echo if blood cultures positive
--- NOTE | 2021-11-18 16:56 | PM.EVENT ---
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 Methadone 10mg Q3 hours PRN for opiate withdrawal ordered. Will assess patient in the morning. Hold methadone for sedation.
[2021-11-18 17:58] LABS: Hyaline Casts Urine 0-2 /LPF; Squamous Epithelial Cell Urine 1+ /LPF; UACC CULT YES
[2021-11-18] MEDS: methADONE HCl 20 MG/2 ML ORAL.CONC 10 MG PO (21:00)
[2021-11-18] MEDS: vancomycin HCL 750 MG in 0.9 % Sodium Chloride 250 ML 265 MG IV (21:28)
[2021-11-18] MEDS: Acetaminophen 325 MG TABLET 650 MG PO (23:45)
[2021-11-19] MEDS: methADONE HCl 20 MG/2 ML ORAL.CONC 10 MG PO ×2 (00:16→20:06)
--- NOTE | 2021-11-19 02:04 | PC.NURSE ---
lab called with critical 1/2 blood cultures gram positive cocci in clusters. notified.pt already on iv vanco and iv zosyn.
[2021-11-19] MEDS: Piperacillin Sodium/Tazobactam 3.375 GM in 0.9 % Sodium Chloride 50 ML IV ×3 (02:20→14:17)
[2021-11-19 04:00] VITALS: BP 101/54; PULSE 93; RESP 18; TEMP 36.2; O2SAT 95
[2021-11-19 07:41] VITALS: BP 97/60; PULSE 75; RESP 17; TEMP 36.3; O2SAT 96
[2021-11-19] MEDS: vancomycin HCL 750 MG in 0.9 % Sodium Chloride 250 ML 265 MG IV (09:31)
[2021-11-19] MEDS: Lactated Ringers 1,000 ML 100 ML IVCONT ×3 (09:37→20:09)
--- NOTE | 2021-11-19 10:50 | HE.PHANOTE ---
Vancomycin Dosing Addendum Pt refused AM labs per NABEEL Stubbs. Trough today at 1900, added on SCR to lab draw.
--- NOTE | 2021-11-19 12:36 | MHC.CM.PN ---
OF THIS NOTE, NO SNF BED OFFERS AND NONE ARE WILLING TO FOLLOW.
--- NOTE | 2021-11-19 12:59 | P.PNADD_ITS ---
Subjective Subjective Date of Service: 11/19/21 Reason For Visit: Sepsis Interim History: Patient seen briefly as he was unable to stay awake. Chart reviewed, received methadone 10mg X2--last dose was at 12am 11/19. He is asleep, opens his eyes when called, but difficulty keeping them open /staying awake. Review of Systems Review of Systems Yes Unobtainable due to mental status Mental Status Exam Mental Status Exam Narrative: drowsy, unable to participate in interview Diagnostics Vital Signs (24Hr): Vital Signs - 24 hr 11/18/21 18:49 11/19/21 04:00 11/19/21 07:41 Temperature 97 F 97.1 F 97.4 F Pulse Rate 97 93 75 Respiratory Rate 26 H 18 17 Blood Pressure 108/66 101/54 L 97/60 Pulse Oximetry 95 96 BMI result Verdana 4 Body Mass Index Verdana 4 22.8 Verdana 4 Verdana 4 Labs Results: 11/18/21 03:31 11/18/21 02:44 Labs: Laboratory Results - last 48 hr 11/18/21 11/18/21 11/18/21 02:43 02:44 02:44 WBC 30.0 H* RBC 4.13 L Hgb 10.0 L Hct 32.0 L MCV 77.5 L MCH 24.2 L MCHC 31.3 RDW 18.9 H Plt Count 203 D MPV 10.8 Immature Gran % (Auto) 1.0 H Neut % (Auto) 84.7 H Lymph % (Auto) 5.3 L [place] % (Auto) 8.6 Eos % (Auto) 0.2 Baso % (Auto) 0.2 Lymph # (Auto) 1.6 [place] # (Auto) 2.6 H Eos # (Auto) 0.1 Baso # (Auto) 0.1 Abs Immat Gran (auto) 0.29 H Absolute Neuts (auto) 25.4 H Absolute Nucleated RBC 0.000 Nucleated RBC % (auto) 0.0 Smear Tech's Comments VERIFIED PT INR APTT Sodium 137 Potassium 3.7 Chloride 106 Carbon Dioxide 20 L Anion Gap 15 BUN 22 H Creatinine 1.59 H Estim Creat Clear Calc 63.5 Estimated GFR 50 Random Glucose 69 Lactic Acid 2.8 H* Lactic Acid F/U @ 2Hr Calcium 8.9 Troponin I High Sens B-Natriuretic Peptide Urine Color Urine Appearance Urine pH Ur Specific [place] Urine Protein Urine Glucose (UA) Urine Ketones Urine Blood Urine Nitrite Ur Leukocyte Esterase Urine RBC Urine WBC Ur Squamous Epith Cells Urine Bacteria Hyaline Casts Granular Casts Waxy Casts Urine Opiates Screen Urine Fentanyl Screen Ur Barbiturates Screen Ur Phencyclidine Scrn Ur Amphetamines Screen U Benzodiazepines Scrn Urine Cocaine Screen U Marijuana (THC) Screen COVID-19 ([facility]) COVID-19 Clin Com 11/18/21 11/18/21 11/18/21 02:44 02:44 03:31 WBC 31.2 H* RBC 3.81 L Hgb 9.3 L Hct 29.5 L MCV 77.4 L MCH 24.4 L MCHC 31.5 RDW 18.9 H Plt Count 180 MPV 10.6 Immature Gran % (Auto) Neut % (Auto) Lymph % (Auto) [place] % (Auto) Eos % (Auto) Baso % (Auto) Lymph # (Auto) [place] # (Auto) Eos # (Auto) Baso # (Auto) Abs Immat Gran (auto) Absolute Neuts (auto) Absolute Nucleated RBC 0.000 Nucleated RBC % (auto) 0.0 Smear Tech's Comments PT INR APTT Sodium Potassium Chloride Carbon Dioxide Anion Gap BUN Creatinine Estim Creat Clear Calc Estimated GFR Random Glucose Lactic Acid Lactic Acid F/U @ 2Hr Calcium Troponin I High Sens 39.3 H D B-Natriuretic Peptide 453 H Urine Color Urine Appearance Urine pH Ur Specific [place] Urine Protein Urine Glucose (UA) Urine Ketones Urine Blood Urine Nitrite Ur Leukocyte Esterase Urine RBC Urine WBC Ur Squamous Epith Cells Urine Bacteria Hyaline Casts Granular Casts Waxy Casts Urine Opiates Screen Urine Fentanyl Screen Ur Barbiturates Screen Ur Phencyclidine Scrn Ur Amphetamines Screen U Benzodiazepines Scrn Urine Cocaine Screen U Marijuana (THC) Screen COVID-19 ([facility]) Negative COVID-19 Clin Com See Note 11/18/21 11/18/21 11/18/21 03:31 05:38 16:12 WBC RBC Hgb Hct MCV MCH MCHC RDW Plt Count MPV Immature Gran % (Auto) Neut % (Auto) Lymph % (Auto) [place] % (Auto) Eos % (Auto) Baso % (Auto) Lymph # (Auto) [place] # (Auto) Eos # (Auto) Baso # (Auto) Abs Immat Gran (auto) Absolute Neuts (auto) Absolute Nucleated RBC Nucleated RBC % (auto) Smear Tech's Comments PT 24.8 H INR 2.1 H APTT 36.4 Sodium Potassium Chloride Carbon Dioxide Anion Gap BUN Creatinine Estim Creat Clear Calc Estimated GFR Random Glucose Lactic Acid Lactic Acid F/U @ 2Hr 1.9 Calcium Troponin I High Sens B-Natriuretic Peptide Urine Color YELLOW Urine Appearance HAZY Urine pH 6.0 Ur Specific [place] 1.015 Urine Protein 2+ H Urine Glucose (UA) NEG Urine Ketones NEG Urine Blood 3+ H Urine Nitrite NEG Ur Leukocyte Esterase NEG Urine RBC 15-29 H Urine WBC 5-9 H Ur Squamous Epith Cells 1+ Urine Bacteria NONE Hyaline Casts 0-2 Granular Casts 1-4 Waxy Casts 1-4 Urine Opiates Screen Urine Fentanyl Screen Ur Barbiturates Screen Ur Phencyclidine Scrn Ur Amphetamines Screen U Benzodiazepines Scrn Urine Cocaine Screen U Marijuana (THC) Screen COVID-19 ([facility]) COVID-19 Timeful 11/18/21 16:12 WBC RBC Hgb Hct MCV MCH MCHC RDW Plt Count MPV Immature Gran % (Auto) Neut % (Auto) Lymph % (Auto) [place] % (Auto) Eos % (Auto) Baso % (Auto) Lymph # (Auto) [place] # (Auto) Eos # (Auto) Baso # (Auto) Abs Immat Gran (auto) Absolute Neuts (auto) Absolute Nucleated RBC Nucleated RBC % (auto) Smear Tech's Comments PT INR APTT Sodium Potassium Chloride Carbon Dioxide Anion Gap BUN Creatinine Estim Creat Clear Calc Estimated GFR Random Glucose Lactic Acid Lactic Acid F/U @ 2Hr Calcium Troponin I High Sens B-Natriuretic Peptide Urine Color Urine Appearance Urine pH Ur Specific [place] Urine Protein Urine Glucose (UA) Urine Ketones Urine Blood Urine Nitrite Ur Leukocyte Esterase Urine RBC Urine WBC Ur Squamous Epith Cells Urine Bacteria Hyaline Casts Granular Casts Waxy Casts Urine Opiates Screen POSITIVE H Urine Fentanyl Screen POSITIVE H Ur Barbiturates Screen Not Detected Ur Phencyclidine Scrn Not Detected Ur Amphetamines Screen Not Detected U Benzodiazepines Scrn Not Detected Urine Cocaine Screen POSITIVE H U Marijuana (THC) Screen POSITIVE H COVID-19 ([facility]) COVID-19 [facility] Com Imaging Radiology Impressions: ITS Impressions Chest X-Ray 11/18/21 04:00 IMPRESSION: Increased bronchial wall thickening with patchy opacities may be infectious or inflammatory. Medications Medications Current Medications Acetaminophen (Acetaminophen 325 Mg Tablet) 650 mg PO Q6H PRN PRN Reason: Pain, Mild (Pain Scale 1-3) Last Admin: 11/18/21 23:45 Dose: 650 mg Documented by: Docusate Sodium (Docusate Sodium 100 Mg Capsule) 100 mg PO DAILY PRN PRN Reason: Constipation Enoxaparin Sodium (Enoxaparin Sodium 40 Mg/0.4 Ml Syringe) 40 mg SUBCUT Q24H [facility] Last Admin: 11/19/21 03:46 Dose: Not Given Documented by: Lactated Ringer's (Lr) 1,000 mls @ 100 mls/hr IVCONT .Q10H [facility] Last Admin: 11/19/21 09:43 Dose: 100 mls/hr Documented by: Piperacillin Sod/Tazobactam (Sod 3.375 gm/ Sodium Chloride) 50 mls @ 100 mls/hr IV Q6H [facility] Last Infusion: 11/19/21 09:42 Dose: Infused Documented by: Vancomycin HCl 750 mg/ Sodium (Chloride) 265 mls @ 265 mls/hr IV Q12H [facility] Last Infusion: 11/19/21 11:10 Dose: Infused Documented by: Methadone HCl (Methadone Hcl 20 Mg/2 Ml Oral.Conc) 10 mg PO Q3H PRN PRN Reason: Opiate Withdrawal Last Admin: 11/19/21 00:16 Dose: 10 mg Documented by: Ondansetron HCl (Ondansetron Hcl 4 Mg/2 Ml Vial) 4 mg IVPUSH Q8H PRN PRN Reason: Nausea and Vomiting Pharmacy Consult (Consult Rx Vancomycin Dosing) 1 each MISCELLANE DAILY PRN PRN Reason: Consult order Allergies Allergies Allergy/AdvReac Type Severity Reaction Status Date / Time No Known Allergies Allergy Verified 11/03/21 05:31 [No Known Allergies*] Assessment & Plan Assessment & Plan (1) Opioid use disorder, severe, dependence: Status: Acute Code(s): F11.20 - Opioid dependence, uncomplicated Assessment and Plan: * still has two doses of PRN methadone available. Continue to hold for sedation * will continue to follow and adjust dosing as necessary. I spent __15____ minutes with the patient and/or on the patient floor today, greater than?50% of which was spent counseling/coordinating care.
--- NOTE | 2021-11-19 15:33 | PC.NURSE ---
Patient refused blood draws today. Patient had been educated on the importance of having his blood drawn. is aware.
[2021-11-19 16:00] VITALS: BP 116/59; PULSE 88; RESP 19; TEMP 36.6; O2SAT 97
--- NOTE | 2021-11-19 16:58 | P.PNIM_ITS ---
Subjective Subjective Date of Service: 11/20/21 Interval History: being followed for sepsis with underlying history of endocarditis, patient complaining of lower back and generalized pain and complaining about his food, no fevers overnight, denies nausea vomiting ,diarrhea no abdominal pain, no bowel or bladder incontinence no numbness tingling weakness lower extremities, refused lab draws, no other acute events overnight Review of Systems Review of Systems: Yes all other systems are reviewed and are negative Physical Exam Verdana 4l Vital Signs: Verdana 4d Verdana 4d Vital Signs: Verdana 4d Verdana 4Bd Last Vital Signs Verdana 4d Heavy Coil Winder New 4d Heavy Coil Winder New 4d Temp 97.8 F 11/19/21 16:00 Heavy Coil [place] New 4d Pulse 88 11/19/21 16:00 Heavy Coil [place] New 4d Resp 19 11/19/21 16:00 BP 116/59 L 11/19/21 16:00 Pulse Ox 97 11/19/21 16:00 BMI result Body Mass Index 22.8 Const: Other: General: Ax O X 3, no acute distress neck is supple Resp:? clear to auscultation, coarse breath sound,no crackles , no accessory muscles used CVS: S1,S2,RRR GI: soft, non tender, non distended extremities no edema Neuro:? motor grossly intact, alert awake answering questions appropriately back positive tenderness lower lumbar spine and bilateral paravertebral muscle Psych: appropriate affect, appropriate insight? ? Objective Data Active Medications Acetaminophen (Acetaminophen 325 Mg Tablet) 650 mg PO Q6H PRN PRN Reason: Pain, Mild (Pain Scale 1-3) Last Admin: 11/18/21 23:45 Dose: 650 mg Documented by: CASSIE Docusate Sodium (Docusate Sodium 100 Mg Capsule) 100 mg PO DAILY PRN PRN Reason: Constipation Enoxaparin Sodium (Enoxaparin Sodium 40 Mg/0.4 Ml Syringe) 40 mg SUBCUT Q24H [facility] Last Admin: 11/19/21 03:46 Dose: Not Given Documented by: CASSIE Non-Admin Reason: Patient Refused Lactated Ringer's (Lr) 1,000 mls @ 100 mls/hr IVCONT .Q10H [facility] Last Admin: 11/19/21 09:43 Dose: 100 mls/hr Documented by: SHAMAR Piperacillin Sod/Tazobactam (Sod 3.375 gm/ Sodium Chloride) 50 mls @ 100 mls/hr IV Q6H [facility] Last Infusion: 11/19/21 14:56 Dose: 0 mls/hr Documented by: SHAMAR Vancomycin HCl 750 mg/ Sodium (Chloride) 265 mls @ 265 mls/hr IV Q12H [facility] Last Infusion: 11/19/21 11:10 Dose: 0 mls/hr Documented by: SHAMAR Methadone HCl (Methadone Hcl 20 Mg/2 Ml Oral.Conc) 10 mg PO Q3H PRN PRN Reason: Opiate Withdrawal Last Admin: 11/19/21 00:16 Dose: 10 mg Documented by: CASSIE Ondansetron HCl (Ondansetron Hcl 4 Mg/2 Ml Vial) 4 mg IVPUSH Q8H PRN PRN Reason: Nausea and Vomiting Pharmacy Consult (Consult Rx Vancomycin Dosing) 1 each MISCELLANE DAILY PRN PRN Reason: Consult order Labs CBC & Chem 7: 11/20/21 09:18 11/20/21 09:18 Labs: Laboratory Results - last 24 hr 11/18/21 16:12 Urine RBC 15-29 H Urine WBC 5-9 H Ur Squamous Epith Cells 1+ Urine Bacteria NONE Hyaline Casts 0-2 Granular Casts 1-4 Waxy Casts 1-4 Microbiology Microbiology Results: Microbiology 11/18/21 02:44 Blood Culture - Preliminary Blood - Venous Prelim: GPC Gram Stain only 11/18/21 Unknown Urine Culture - Preliminary Urine clean catch - Urine harley top No growth to date. 11/18/21 02:44 Blood Culture - Preliminary Blood - Venous No growth after 24 hours. Assessment and Plan (1) LUCERO (acute kidney injury): Status: Acute (2) Endocarditis of tricuspid valve: Status: Acute (3) Pneumonia: Status: Acute (4) Sepsis: Status: Acute (5) Opioid use disorder, severe, dependence: Status: Acute (6) Back pain: Status: Acute Plan 31 M with PMH of IVDA, endocarditis, tricuspid valve stenosis, pulmonary embolism on Xarelto-noncompliant, history of hep C, IV drug abuse/opiate dependence, history of bacteremia, hepatic steatosis, history of tricuspid valve replacement with bioprosthetic valve,in July of 2021? admitted to [facility] for endocarditis-left AMA, interrupted antibiotic therapy has had multiple admissions to [facility],with most recent admission to the hospital from 11/04 to 11/11? patient left against medical advice, was supposed to receive 6 weeks of IV antibiotic for Streptococcus sanguinous/ Streptococcus viridans pneumonia , patient presented to ER with generalized malaise, weakness and pain, admitted use of cocaine and heroin. # severe sepsis? due to pneumonia/ known bioprosthetic tricuspid valve endocarditis not fully treated hypotension ,Lactic acidosis, fever, and tachycardia resolved most likely multifactorial secondary to bacteremia? due to endocarditis/ pneumonia ? on IV vanco/Zosyn day 2 ? blood cultures from 11/03 were negative and patient was to be discharged on 6 weeks of iv ceftriaxone but left AMA on 11/11 ? repeat blood culture 10/20 positive for Gram-positive cocci will repeat echocardiogram since blood cultures are positive, patient declined labs, convinced patient for lab draws ? id recommend IV ceftriaxone, therefore will DC IV vanco and Zosyn and place on ceftriaxone # pneumonia - likely hospital-acquired vs?septic emboli ? continue IV antibiotics as above, Follow cultures? and monitor respiratory status # lactic acidosis - resolved # LUCERO - likely pre-renal 2/2 sepsis, continue iv fluids patient declined labs - follow bmp # back pain as per patient has ongoing back pain, no acute worsening, localize to lower lumbar/ tailbone CT lumbar spine 11/09 showed no fracture or paraspinal abscess, no lower extremity weakness follow clinical course # opioid use disorder -? seen by Addiction Team,placed on methadone # DVT prophylaxis with Lovenox Quality Stroke Does the patient have a stroke diagnosis?: No VTE Prior VTE?: No VTE Risk Level:: Medical - moderate - high VTE Device Contraindication: Treatment Not Indicated VTE Drug Contraindication: N/A - Med Ordered
[2021-11-19] MEDS: cefTRIAXone sodium 2 GM in 0.9 % Sodium Chloride 50 ML IV (18:00)
[2021-11-20] VITALS: BP 137/79; PULSE 92; RESP 18; TEMP 36.2; O2SAT 94
[2021-11-20] MEDS: HYDROmorphone HCl 2 MG TABLET 1 MG PO (00:36)
[2021-11-20 04:00] VITALS: BP 110/59; PULSE 84; RESP 18; TEMP 37.1; O2SAT 100
[2021-11-20] MEDS: Acetaminophen 325 MG TABLET 650 MG PO ×2 (04:41→16:35)
[2021-11-20] MEDS: Lactated Ringers 1,000 ML 100 ML IVCONT (06:24)
[2021-11-20 07:58] VITALS: BP 125/82; PULSE 80; RESP 19; TEMP 36.7; O2SAT 95
[2021-11-20 09:22] LABS: MANUAL DIFF FLAG NO
[2021-11-20 09:32] LABS: Basophils Percent Auto 0.4 % (0-2); Eosinophils Absolute Auto 0.3 X10*3/uL (0.0-0.4); Eosinophils Percent Auto 2.7 % (0-4); Hematocrit 33.8 % (42.0-52.0); Hemoglobin 10.3 g/dl (14.0-18.0); Imm Gran Abs Auto 0.12 X10*3/uL (0.00-0.03); Imm Gran Pct Auto 1.1 % (0.0-0.4); Lymphocytes Absolute Auto 1.5 X10*3/uL (1.2-4.9); Lymphocytes Percent Auto 14.2 % (20-40); Mean Corpuscular HGB Conc 30.5 g/dl (31.0-36.0); Mean Corpuscular Hemoglobin 23.7 pg (27.0-33.0); Mean Corpuscular Volume 77.9 fL (80.0-98.0); Mean Platelet Volume 10.9 fL (9.4-12.4); Monocytes Absolute Auto 0.7 X10*3/uL (0.1-1.2); Monocytes Percent Auto 6.3 % (2-11); Neutrophils Absolute Auto 8.2 x10*3/uL (2.0-8.3); Neutrophils Percent Auto 75.3 % (45-73); Platelet Count 160 X10*3/uL (160-400); Red Blood Count 4.34 X10*6/uL (4.60-5.80); Red Cell Distribution Width 19.2 % (11.0-16.0); White Blood Count 10.9 X10*3/uL (4.8-10.8)
[2021-11-20 09:55] LABS: Anion Gap 10 (12-20); Blood Urea Nitrogen 17 mg/dL (9-16); Calcium 8.3 mg/dL (8.4-10.2); Carbon Dioxide 20 mmol/L (22-29); Chloride 112 mmol/L (96-108); Creatinine Clr Calc Pharmacy 88.6; Estimated Glomerular Filt Rate > 60; Glucose Random 128 mg/dL (60-115); Potassium 3.5 mmol/L (3.3-5.1); Sodium 138 mmol/L (135-145)
--- NOTE | 2021-11-20 11:00 | CA_ITS ---
Transthoracic Echocardiogram Patient (Last, First, Middle): Norberto Marquez, Gender: Male Date of : 1990 Age: 31 Procedure Date: 11/20/2021 Procedure Type: Transthoracic Echocardiogram Location: S3E Height: 172.72 cm Weight: 68.04 kg BSA: 1.81 m2 Heart Rate: bpm BP: 125 / 82 mmHg Lead Mechanic: DAGOBERTO Alvarez MD: Janeen Long MD Symptoms: f/u on tricuspid endocarditis Study Quality: Good ECG Rhythm: Sinus Conclusions: - The prosthetic tricuspid valve appears to be functioning abnormally. Mean gradient across the valve 14mmHg at 99/min (elevated, suggestive of prosthetic valve stenosis). Vegetation noted on tricuspid valve 1.65 x 0.9 cm. - Study consistent with endocarditis of prosthetic tricuspid valve. Findings Right Ventricle Normal right ventricular cavity size. There is moderately decreased right ventricular systolic function. Tricuspid Valve A bioprosthetic tricuspid valve is present. The prosthetic tricuspid valve appears to be functioning abnormally. There is mild tricuspid valve regurgitation. Mean gradient across the tricuspid valve 14mmHg at 99/min. Vegetation noted on tricuspid valve 1.65 x 0.9 cm. Venous The inferior vena cava is mildly dilated and collapses less than 50% with inspiration. Prior Study Comparison Changes noted compared to prior study dated: 10/10/2021. Increase in tricuspid valve gradient (but closer to study from 06/2021). Measurements Tricuspid Valve TV Pk Dalton: 2.40 TV Mn Dalton: 1.76 TV Pk Grad: 23.00 TV Mn Grad: 14.00 TR Pk Dalton: 2.37 TR Pk Grad: 22.00 RA Press: 15.00 RVSP: 37.00 Updated in Other Vendor System with Status of Final Kartik Perrin MD electronically signed on 11/20/2021 3:42:10 PM with status of Final
[2021-11-20 11:42] VITALS: BP 125/78; PULSE 93; RESP 18; TEMP 37.1; O2SAT 95
--- NOTE | 2021-11-20 13:15 | P.PNIM_ITS ---
Subjective Subjective Date of Service: 11/20/21 Interval History: no acute issues overnight denies fever chills, tolerating diet no nausea, no vomiting ,agreeable for lab draws, no change in lower back pain, no bowel bladder incontinence no lower extremity weakness. Review of Systems Review of Systems: Yes all other systems are reviewed and are negative Physical Exam Verdana 4l Vital Signs: Verdana 4d Verdana 4d Vital Signs: Verdana 4d Verdana 4Bd Last Vital Signs Verdana 4d Inside Sales New 4d Inside Sales New 4d Temp 98.7 F 11/20/21 11:42 Inside Sales New 4d Pulse 93 11/20/21 11:42 Inside Sales New 4d Resp 18 11/20/21 11:42 BP 125/78 11/20/21 11:42 Pulse Ox 95 11/20/21 11:42 BMI result Body Mass Index 22.8 Const: Other: General: Ax O X 3, no acute distress Neck is supple Resp:? clear to auscultation,? coarse breath sound,no crackles , no accessory muscles used CVS: S1,S2,RRR GI: soft, non tender, non distended extremities no edema Neuro:? motor grossly intact, alert awake answering questions appropriately back positive tenderness? lower lumbar spine and bilateral paravertebral muscle , no change since yesterday Psych: appropriate affect, appropriate insight? Objective Data Active Medications Acetaminophen (Acetaminophen 325 Mg Tablet) 650 mg PO Q6H PRN PRN Reason: Pain, Mild (Pain Scale 1-3) Last Admin: 11/20/21 04:41 Dose: 650 mg Documented by: JORDEN Docusate Sodium (Docusate Sodium 100 Mg Capsule) 100 mg PO DAILY PRN PRN Reason: Constipation Enoxaparin Sodium (Enoxaparin Sodium 40 Mg/0.4 Ml Syringe) 40 mg SUBCUT Q24H [facility] Last Admin: 11/20/21 02:45 Dose: Not Given Documented by: JORDEN Non-Admin Reason: Patient Refused Lactated Ringer's (Lr) 1,000 mls @ 100 mls/hr IVCONT .Q10H [facility] Last Admin: 11/20/21 06:24 Dose: 100 mls/hr Documented by: JORDEN Ceftriaxone Sodium 2 gm/ (Sodium Chloride) 50 mls @ 100 mls/hr IV Q24H [facility] Last Infusion: 11/19/21 19:17 Dose: 0 mls/hr Documented by: SHAMAR Methadone HCl (Methadone Hcl 20 Mg/2 Ml Oral.Conc) 10 mg PO Q3H PRN PRN Reason: Opiate Withdrawal Last Admin: 11/19/21 20:06 Dose: 10 mg Documented by: JORDEN Ondansetron HCl (Ondansetron Hcl 4 Mg/2 Ml Vial) 4 mg IVPUSH Q8H PRN PRN Reason: Nausea and Vomiting Pharmacy Consult (Consult Rx Vancomycin Dosing) 1 each MISCELLANE DAILY PRN PRN Reason: Consult order Labs CBC & Chem 7: 11/20/21 09:18 11/20/21 09:18 Labs: Laboratory Results - last 24 hr 11/20/21 11/20/21 09:18 09:18 MCV 77.9 L MCH 23.7 L MCHC 30.5 L RDW 19.2 H Plt Count 160 MPV 10.9 Immature Gran % (Auto) 1.1 H Neut % (Auto) 75.3 H Lymph % (Auto) 14.2 L [place] % (Auto) 6.3 Eos % (Auto) 2.7 Baso % (Auto) 0.4 Lymph # (Auto) 1.5 [place] # (Auto) 0.7 Eos # (Auto) 0.3 Baso # (Auto) 0.0 Abs Immat Gran (auto) 0.12 H Absolute Neuts (auto) 8.2 Absolute Nucleated RBC 0.000 Nucleated RBC % (auto) 0.0 Anion Gap 10 L Estim Creat Clear Calc 88.6 Estimated GFR > 60 Random Glucose 128 H D Calcium 8.3 L D Microbiology Microbiology Results: Microbiology 11/18/21 02:44 Blood Culture - Final Blood - Venous Coag negative Staphylococcus 11/18/21 02:44 Blood Culture - Preliminary Blood - Venous No growth after 48 hours. 11/18/21 Unknown Urine Culture - Preliminary Urine clean catch - Urine harley top No growth to date. Assessment and Plan (1) LUCERO (acute kidney injury): Status: Acute (2) Endocarditis of tricuspid valve: Status: Acute (3) Pneumonia: Status: Acute (4) Sepsis: Status: Acute (5) Opioid use disorder, severe, dependence: Status: Acute (6) Back pain: Status: Acute Plan 31 M with PMH of IVDA, endocarditis, tricuspid valve stenosis, pulmonary embolism on Xarelto-noncompliant, history of hep C, IV drug abuse/opiate dependence, history of bacteremia, hepatic steatosis, history of tricuspid valve replacement with bioprosthetic valve,in July of 2021? admitted to [facility] for endocarditis-left AMA, interrupted antibiotic therapy has had multiple admissions to [facility],with most recent admission to the hospital from 11/04 to 11/11? patient left against medical advice, was supposed to receive 6 weeks of IV antibiotic for Streptococcus sanguinous/ Streptococcus viridans pneumonia , patient presented to ER with generalized malaise, weakness and pain, admitted use of cocaine and heroin. # severe sepsis? due to pneumonia/ known bioprosthetic tricuspid valve endocarditis not fully treated hypotension ,Lactic acidosis, fever, leukocytosis and tachycardia resolved most likely multifactorial secondary to bacteremia? due to endocarditis/ pneumonia ? s/p IV vanco/Zosyn x2 days now on IV ceftriaxone day 2 ? blood cultures from 11/03 were negative and patient was to be discharged on 6 weeks of iv ceftriaxone but left AMA on 11/11 ? repeat blood culture 10/20 positive for Gram-positive cocci, final sensitivity showed coagulase-negative Staph unlikely pathogen repeat echocardiogram pending will discuss with ID regarding duration and route of antibiotic once echo report is available # pneumonia - likely hospital-acquired vs?septic emboli ? continue IV antibiotics as above, Follow cultures? and monitor respiratory status # lactic acidosis - resolved # LUCERO - resolved, was likely pre-renal 2/2 sepsis, will DC IV fluid # back pain as per patient has ongoing back pain, no acute worsening, localize to lower lumbar/ tailbone CT lumbar spine 11/09 showed no fracture or paraspinal abscess, no lower extremity weakness follow clinical course # opioid use disorder -? seen by Addiction Team,placed on methadone # DVT prophylaxis with Lovenox Quality Stroke Does the patient have a stroke diagnosis?: No VTE Prior VTE?: No VTE Risk Level:: Medical - moderate - high VTE Device Contraindication: Treatment Not Indicated VTE Drug Contraindication: N/A - Med Ordered
[2021-11-20] MEDS: methADONE HCl 20 MG/2 ML ORAL.CONC 10 MG PO (16:22)
[2021-11-20] MEDS: cefTRIAXone sodium 2 GM in 0.9 % Sodium Chloride 50 ML IV (17:45)
[2021-11-21] VITALS: BP 109/67; PULSE 76; RESP 18; TEMP 36.2; O2SAT 97
[2021-11-21] MEDS: methADONE HCl 20 MG/2 ML ORAL.CONC 15 MG PO ×2 (00:51→12:44)
[2021-11-21 07:33] VITALS: BP 145/98; PULSE 74; RESP 20; TEMP 37.3; O2SAT 99
--- NOTE | 2021-11-21 10:46 | P.CONCA_ITS ---
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 This is a gentleman with history of IV drug abuse there is unfortunately still ongoing. Previous history of pulmonary embolism, noncompliant with Xarelto. 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 Currently, main complaints of generalized aches and pains. Not very communicative and had to question numerous times but denies clear chest pain type symptoms or shortness of breath. Very reluctant to give any information at all. Review of Systems Verdana 4l Review of Systems: Verdana 4d Yes all other systems are reviewed and are negative Verdana 4l Cardiovascular: Verdana 4d Verdana 4d Cardiovascular: Verdana 4d Reports as per HPI, Reports no additional cardiovascular complaints, Denies acrocyanosis, Denies cool extremities, Denies painful fingertips, Denies chest pain, Denies chest pain at rest, Denies diaphoresis, DeniesDenies syncope, Denies irregular heart rhythm, Denies claudication, Denies leg edema, Denies lightheadedness, Denies pal pitations and Denies dyspnea Respiratory: Respiratory: Denies dyspnea Neurologic: Denies syncope Endocrine: Endocrine: Denies palpitations [facility] Past Medical History Medical History (Updated 11/21/21 @ 10:51 by Kartik Perrin MD) Anasarca Bacteremia Bacteremia Endocarditis HCV (hepatitis C virus) Pulmonary embolism Right heart failure Steatosis, liver Tricuspid valve stenosis Family History Family history: reviewed and not pertinent Surgical History Surgical History (Updated 11/21/21 @ 10:51 by Kartik Perrin MD) History of tricuspid valve replacement with bioprosthetic valve Social History Social History Household Members: None Household Members Other:: none. homeless Housing: Homeless Do you presently have visiting nurse or other home services: No Unable to assess alcohol history related to: Refusing to respond Alcohol intake: never Patient Tobacco Use Status: Current everyday Tobacco user Tobacco use type: Cigarette Second Hand Smoke Exposure: No Substance Use Type: IV Drugs, Marijuana and Opiates Advance Directives Date on File: 04/16/21 service: No Current occupational status: unemployed Meds Allergies Allergy/AdvReac Type Severity Reaction Status Date / Time No Known Allergies Allergy Verified 11/03/21 05:31 [No Known Allergies*] Active Medications: Current Medications Acetaminophen (Acetaminophen 325 Mg Tablet) 650 mg PO Q6H PRN PRN Reason: Pain, Mild (Pain Scale 1-3) Last Admin: 11/20/21 16:35 Dose: 650 mg Documented by: Docusate Sodium (Docusate Sodium 100 Mg Capsule) 100 mg PO DAILY PRN PRN Reason: Constipation Enoxaparin Sodium (Enoxaparin Sodium 40 Mg/0.4 Ml Syringe) 40 mg SUBCUT Q24H [facility] Last Admin: 11/21/21 02:13 Dose: Not Given Documented by: Ceftriaxone Sodium 2 gm/ (Sodium Chloride) 50 mls @ 100 mls/hr IV Q24H [facility] Last Infusion: 11/20/21 18:17 Dose: Infused Documented by: Methadone HCl (Methadone Hcl 20 Mg/2 Ml Oral.Conc) 15 mg PO BID PRN PRN Reason: Opiate Withdrawal Last Admin: 11/21/21 00:51 Dose: 15 mg Documented by: Ondansetron HCl (Ondansetron Hcl 4 Mg/2 Ml Vial) 4 mg IVPUSH Q8H PRN PRN Reason: Nausea and Vomiting Pharmacy Consult (Consult Rx Vancomycin Dosing) 1 each MISCELLANE DAILY PRN PRN Reason: Consult order Home Medications Medication Instructions Recorded Confirmed Last Taken Type No Known Home Meds 10/08/21 11/18/21 Unknown History Physical Exam Verdana 4l Vital Signs: Verdana 4d Verdana 4d Vital Signs: Verdana 4d Verdana 4Bd Last Vital Signs Verdana 4d Associate Store Manager New 4d Associate Store Manager New 4d Temp 99.2 F 11/21/21 07:33 Associate Store Manager New 4d Pulse 74 11/21/21 07:33 Associate Store Manager New 4d Resp 20 11/21/21 07:33 BP 145/98 H 11/21/21 07:33 Pulse Ox 99 11/21/21 07:33 BMI result Body Mass Index 22.8 Const: General: no acute distress HENMT: Other: Unremarkable Neck: Neck: Yes normal visual inspection Chest: Chest palpation & inspection: normal inspection of the chest Resp: Auscultation: no crackles and no wheezes Cardio: Palpation: normal PMI Heart sounds: S1 normal heart sound present, S2 normal heart sound present, no gallops, Murmur heart sound present diastolic and systolic and no rubs GI: Palpation (GI): Soft to palpation Back/Spine/Pelvis: Other: unremarkable Skin: Lesions: other Neuro: Cranial nerves: Yes Other cranial nerve findings present Extrem: General: Yes other Psych: Mental Status: other Objective Labs and Meds Result diagrams: 11/20/21 09:18 11/20/21 09:18 ECG Interpretation: EKG from 3 days ago with sinus tachycardia at 137/Min with an incomplete right bundle-branch bladder with nonspecific ST-T changes. Assessment and Plan (1) S/P tricuspid valve replacement: Status: Acute (2) Endocarditis: Status: Acute (3) Opioid use disorder, severe, dependence: Status: Acute (4) Polysubstance abuse: Status: Acute (5) Severe sepsis: Status: Acute Plan Pertinent data reviewed. High sensitivity troponins from admission 39.3. Cardiac BNP 453. Echocardiogram is suggestive of severe tricuspid valve stenosis with mean gradient of 14 mm Hg as well as vegetation which is likely chronic. One of the cultures from November 18 reported to be coagulase-negative Staphylococcus but the other culture is negative. Urine cocaine is positive as well as marijuana. In fact, there are 9 urine studies positive for cocaine that I can see. He was seen by cardiac surgery in June of 2021. At that time it was felt that he was at very high risk for mortality morbidity from reoperation. And additionally it was also felt that due to ongoing drug use, he was also at high risk of for infecting any new valve that is placed. I agree with the above and do not feel that he is a candidate for any surgical intervention at this time. Mainstay of therapy should be appropriate duration of antibiotics as recommended by ID and then recur counseling and possibly inpatient rehabilitation so that he does not go back to drugs. Once this is resolved and he can remain drug-free then can reassess. Procedures Date of Service Date of Service: 11/21/21
[2021-11-21 11:56] VITALS: BP 131/86; PULSE 94; RESP 18; TEMP 36.6; O2SAT 97
--- NOTE | 2021-11-21 12:34 | MHC.RECOVRN ---
Attempted to meet with pt to check in and assess desire for recovery, pt sleeping but wakes to voice. Pt only states I feel terrible and then returns to sleep. Will continue to follow.
--- NOTE | 2021-11-21 14:12 | P.PNIM_ITS ---
Subjective Subjective Date of Service: 11/21/21 Interval History: complaining of back pain asking for pain medications, mostly focused on food, denies chest pain,no shortness of breath, no fevers, no chills, no headache or dizziness. Review of Systems Review of Systems: Yes all other systems are reviewed and are negative Physical Exam Verdana 4l Vital Signs: Verdana 4d Verdana 4d Vital Signs: Verdana 4d Verdana 4Bd Last Vital Signs Verdana 4d Final Installer Inspector New 4d Final Installer Inspector New 4d Temp 97.8 F 11/21/21 11:56 Final Installer Inspector New 4d Pulse 94 11/21/21 11:56 Final Installer Inspector New 4d Resp 18 11/21/21 11:56 BP 131/86 11/21/21 11:56 Pulse Ox 97 11/21/21 11:56 BMI result Body Mass Index 22.8 Const: Other: General: Ax O X 3, no acute distress Neck is supple Resp:? clear to auscultation,? coarse breath sound,no crackles , no accessory muscles used CVS: S1,S2,RRR GI: soft, non tender, non distended extremities no edema Neuro:? motor grossly intact, alert awake answering questions appropriately back positive tenderness? lower lumbar spine and bilateral paravertebral muscle , no change Psych: appropriate affect Objective Data Active Medications Acetaminophen (Acetaminophen 325 Mg Tablet) 650 mg PO Q6H PRN PRN Reason: Pain, Mild (Pain Scale 1-3) Last Admin: 11/20/21 16:35 Dose: 650 mg Documented by: ALOK Docusate Sodium (Docusate Sodium 100 Mg Capsule) 100 mg PO DAILY PRN PRN Reason: Constipation Enoxaparin Sodium (Enoxaparin Sodium 40 Mg/0.4 Ml Syringe) 40 mg SUBCUT Q24H [facility] Last Admin: 11/21/21 02:13 Dose: Not Given Documented by: ALVIN Non-Admin Reason: Patient Refused Ceftriaxone Sodium 2 gm/ (Sodium Chloride) 50 mls @ 100 mls/hr IV Q24H [facility] Last Infusion: 11/20/21 18:17 Dose: 0 mls/hr Documented by: COTKAREN Methadone HCl (Methadone Hcl 20 Mg/2 Ml Oral.Conc) 15 mg PO BID PRN PRN Reason: Opiate Withdrawal Last Admin: 11/21/21 12:44 Dose: 15 mg Documented by: VIRAL Ondansetron HCl (Ondansetron Hcl 4 Mg/2 Ml Vial) 4 mg IVPUSH Q8H PRN PRN Reason: Nausea and Vomiting Pharmacy Consult (Consult Rx Vancomycin Dosing) 1 each MISCELLANE DAILY PRN PRN Reason: Consult order Labs CBC & Chem 7: 11/20/21 09:18 11/20/21 09:18 Microbiology Microbiology Results: Microbiology 11/18/21 Unknown Urine Culture - Final Urine clean catch - Urine harley top No growth. Assessment and Plan (1) LUCERO (acute kidney injury): Status: Acute (2) Endocarditis of tricuspid valve: Status: Acute (3) Pneumonia: Status: Acute (4) Sepsis: Status: Acute (5) Opioid use disorder, severe, dependence: Status: Acute (6) Back pain: Status: Acute Plan 31 M with PMH of IVDA, endocarditis, tricuspid valve stenosis, pulmonary embolism on Xarelto-noncompliant, history of hep C, IV drug abuse/opiate dependence, history of bacteremia, hepatic steatosis, history of tricuspid valve replacement with bioprosthetic valve,in July of 2021? admitted to [facility] for endocarditis-left AMA, interrupted antibiotic therapy has had multiple admissions to [facility],with most recent admission to the hospital from 11/04 to 11/11? patient left against medical advice, was supposed to receive 6 weeks of IV antibiotic for Streptococcus sanguinous/ Streptococcus viridans pneumonia , patient presented to ER with generalized malaise, weakness and pain, admitted use of cocaine and heroin. # severe sepsis? due to pneumonia/ known bioprosthetic tricuspid valve endocarditis not fully treated no acute complaints this am. hypotension ,Lactic acidosis, fever, leukocytosis and tachycardia resolved most likely multifactorial secondary to bacteremia? due to endocarditis/ pneumonia ? s/p IV vanco/Zosyn x2 days now on IV ceftriaxone day 3 ? blood cultures from 11/03 were negative and patient was to be discharged on 6 weeks of iv ceftriaxone but left AMA on 11/11 ? repeat blood culture 10/20 positive for coagulase-negative Staph unlikely pathogen repeat echocardiogram Showing severe stenosis of prosthetic tricuspid valve with mean gradient of 14 as well as vegetation case discussed with Cardiology patient was recently evaluated by Cardiac surgery at [facility] in June of 2021 and it was felt that he is at a very high risk for mortality from reoperation and additionally due to ongoing drug use he was also at high risk for new valve infection rediscuss case with Dr. Plascencia this a.m. she recommend to continue IV ceftriaxone 2 g for 6 weeks # pneumonia asymptomatic no cough no sputum production no shortness of breath, on IV an tibiotics as above, Follow cultures? and monitor respiratory status # lactic acidosis - resolved # LUCERO - resolved, was likely pre-renal 2/2 sepsis, will DC IV fluid # back pain as per patient has ongoing back pain, no acute worsening, localize to lower lumbar/ tailbone CT lumbar spine 11/09 showed no fracture or paraspinal abscess, no lower extremity weakness follow clinical course # opioid use disorder -? seen by Addiction Team,placed on methadone 15 mg b.i.d. as needed, will discuss with addiction team regarding inpatient detox placement # DVT prophylaxis with Lovenox disposition case discussed with CM patient has been declined admission at multiple rehab centers due to patient actively using drugs cannot place on PICC line , will place PICC line once accepting rehab bed is available. Quality Stroke Does the patient have a stroke diagnosis?: No VTE Prior VTE?: No VTE Risk Level:: Medical - moderate - high VTE Device Contraindication: Treatment Not Indicated VTE Drug Contraindication: N/A - Med Ordered
[2021-11-21 15:54] LABS: Creatinine Clr Calc Pharmacy 107.5; Estimated Glomerular Filt Rate > 60
[2021-11-21] MEDS: cefTRIAXone sodium 2 GM in 0.9 % Sodium Chloride 50 ML IV (17:02)
[2021-11-21 17:13] VITALS: BP 145/97; PULSE 84; RESP 22; O2SAT 95
--- NOTE | 2021-11-21 19:56 | HO.ADDICTPRO ---
Subjective Subjective Date of Service: 11/21/21 Reason For Visit: Sepsis Interim History: Patient awake and engaged in interview Reporting that he is having back pain and considering leaving Discussed methadone dosing--now that patient is more awake. He last received 15mg at around 1245 today. He was not reporting any withdrawal sx, aside from anxiety and yawning observed by this newswriter He continues to be irritable and focused on food (he has a lot of food, but is unhappy because things are either not what he ordered, too cold, etc). Able to have a conversation with this newswriter. Agreeable to HS methadone dose and AM dose as well. Review of Systems Acute medical concerns: Yes Medical Review of Systems: unchanged Mental Status Exam Mental Status Exam Level of Consciousness: Awake and Alert Patient Behavior: Guarded and Cooperative Mood Description: Appropriate and Hostile Affect Description: Blunted Thought Process: Goal Oriented Judgement: Fair Diagnostics Vital Signs (24Hr): Vital Signs - 24 hr 11/21/21 00:00 11/21/21 07:33 11/21/21 11:56 Temperature 97.2 F 99.2 F 97.8 F Pulse Rate 76 74 94 Respiratory Rate 18 20 18 Blood Pressure 109/67 145/98 H 131/86 Pulse Oximetry 97 99 97 11/21/21 17:13 Temperature Pulse Rate 84 Respiratory Rate 22 H Blood Pressure 145/97 H Pulse Oximetry 95 BMI result Body Mass Index 22.8 Labs Results: 11/20/21 09:18 11/21/21 15:00 Labs: Laboratory Results - last 48 hr 11/20/21 11/20/21 11/21/21 09:18 09:18 15:00 WBC 10.9 H RBC 4.34 L Hgb 10.3 L Hct 33.8 L MCV 77.9 L MCH 23.7 L MCHC 30.5 L RDW 19.2 H Plt Count 160 MPV 10.9 Immature Gran % (Auto) 1.1 H Neut % (Auto) 75.3 H Lymph % (Auto) 14.2 L [place] % (Auto) 6.3 Eos % (Auto) 2.7 Baso % (Auto) 0.4 Lymph # (Auto) 1.5 [place] # (Auto) 0.7 Eos # (Auto) 0.3 Baso # (Auto) 0.0 Abs Immat Gran (auto) 0.12 H Absolute Neuts (auto) 8.2 Absolute Nucleated RBC 0.000 Nucleated RBC % (auto) 0.0 Sodium 138 Potassium 3.5 Chloride 112 H Carbon Dioxide 20 L Anion Gap 10 L BUN 17 H Creatinine 1.14 0.94 Estim Creat Clear Calc 88.6 107.5 Estimated GFR > 60 > 60 Random Glucose 128 H D Calcium 8.3 L D Imaging Radiology Impressions: ITS Impressions Chest X-Ray 11/18/21 04:00 IMPRESSION: Increased bronchial wall thickening with patchy opacities may be infectious or inflammatory. Medications Medications Current Medications Acetaminophen (Acetaminophen 325 Mg Tablet) 650 mg PO Q6H PRN PRN Reason: Pain, Mild (Pain Scale 1-3) Last Admin: 11/20/21 16:35 Dose: 650 mg Documented by: Clonidine HCl (Clonidine Hcl 0.1 Mg Tablet) 0.1 mg PO TID PRN; Protocol PRN Reason: anxiety/restlessness Docusate Sodium (Docusate Sodium 100 Mg Capsule) 100 mg PO DAILY PRN PRN Reason: Constipation Enoxaparin Sodium (Enoxaparin Sodium 40 Mg/0.4 Ml Syringe) 40 mg SUBCUT Q24H [facility] Last Admin: 11/21/21 02:13 Dose: Not Given Documented by: Ceftriaxone Sodium 2 gm/ (Sodium Chloride) 50 mls @ 100 mls/hr IV Q24H [facility] Last Infusion: 11/21/21 17:37 Dose: Infused Documented by: Methadone HCl (Methadone Hcl 20 Mg/2 Ml Oral.Conc) 10 mg PO DAILY@2000 [facility] Methadone HCl (Methadone Hcl 20 Mg/2 Ml Oral.Conc) 20 mg PO DAILY [facility] Ondansetron HCl (Ondansetron Hcl 4 Mg/2 Ml Vial) 4 mg IVPUSH Q8H PRN PRN Reason: Nausea and Vomiting Pharmacy Consult (Consult Rx Vancomycin Dosing) 1 each MISCELLANE DAILY PRN PRN Reason: Consult order Allergies Allergies Allergy/AdvReac Type Severity Reaction Status Date / Time No Known Allergies Allergy Verified 11/03/21 05:31 [No Known Allergies*] Assessment & Plan Assessment & Plan (1) Opioid use disorder, severe, dependence: Status: Acute Code(s): F11.20 - Opioid dependence, uncomplicated Assessment and Plan: methadone order changed to 20mg in AM and 10mg HS will continue to assess and titrate dose as necessary. due to opioid tolerance may require higher doses of pain medication if necessary clonidine TID PRN for anxiety/restlessness I spent __30_ ___ minutes with the patient and/or on the patient floor today, greater than?50% of which was spent counseling/coordinating care.
[2021-11-21 20:39] VITALS: BP 139/90; PULSE 89; RESP 18; TEMP 36.5; O2SAT 96
[2021-11-21] MEDS: methADONE HCl 20 MG/2 ML ORAL.CONC 10 MG PO (20:41)
[2021-11-21] MEDS: cloNIDine HCL 0.1 MG TABLET PO (21:09)
[2021-11-22] VITALS: BP 126/76; PULSE 80; RESP 18; TEMP 36.4; O2SAT 98
[2021-11-22] MEDS: methADONE HCl 20 MG/2 ML ORAL.CONC PO (08:25)
--- NOTE | 2021-11-22 10:13 | MHC.CM.PN ---
PATIENT REFUSING TO STAY DESPITE CASE MANAGEMENT ATTEMPTS TO CONVINCE OTHERWISE. PATIENT STATES THAT HE IS AWARE THAT HE IS SICK, AND HE KNOWS THAT HE COULD . WHEN ASKED WHAT IT WOULD TAKE FOR THE PATIENT TO REMAIN AND RECEIVE HIS ABX TREATMENT, HE REPLIES THEY AREN'T GIVING ME ANYTHING FOR PAIN. I KNOW EVENTUALLY I HAVE TO BE WITHOUT IT BUT NOT RIGHT NOW WHEN ASKED IF HE WOULD CONSIDER TYLENOL, HE REFUSES.
--- NOTE | 2021-11-22 10:46 | MHC.RECOVSUP ---
Recovery Support note: Patient leaving AMA. Reports nothing will change his mind and that he is leaving. Last dose letter and poncho provided. Discussed plan to connect with OTP tomorrow.
[2021-11-22 10:48] LABS: Creatinine Clr Calc Pharmacy 109.9; Estimated Glomerular Filt Rate > 60
--- NOTE | 2021-11-22 10:57 | P.DS_ITS ---
DS: Providers Provider Date of Service: 11/22/21 Date of admission: 11/18/21 06:30 Primary care physician: [facility] Consults: 11/18/21 06:26 Consult to Care Team Routine Comment: Reason for consultation: opioid dependence Consult to Infectious Diseases Routine Consulting Provider: Lena Plascencia Reason for consultation: bacteremia Has provider been notified: No 11/18/21 15:50 Addiction Medicine Routine Consulting Provider: Tami Luna Reason for consultation: cocaine heroin use disorder Has provider been notified: Yes 11/21/21 08:27 Consult to Cardiology Routine Consulting Provider: Kartik Perrin Reason for consultation: tricuspid endocarditis/prothetic valve stenosis Has provider been notified: No DS: Diagnosis Discharge Diagnosis (1) Opioid use disorder, severe, dependence: Status: Acute DS: Summary Hospital Course Hospital Course: Chief Complaint: homesless, SOB This is a 31-year-old male with past medical history of IV drug abuse, recurrent endocarditis, hepatitis-C, history of pulmonary embolism noncompliant with Xarelto, history of known bioprosthetic tricuspid valve endocarditis not fully treated.? Who has recurrent admissions to the hospital for sepsis/bacteremia post signs out AMA each time.? Patient was recently admitted to the hospital from 11/04 and left against medical advice on 11/11.? At that time patient was being treated for recurrent strep sanguinous bacteremia and was to complete a 6 week IV antibiotic regimen but once again left AMA.? He returns today septic, and not doing well.? Patient is very somnolent, moaning and groaning and unable to give much history to me.? He appears intoxicated and not able to give much history.? On arrival to the ED patient found to have a temp of a 100.5?, heart rate of 123, blood pressure of 80s-90s systolic over 50s, he receives septic fluid with blood pressure improving to a MAP of 69. Labs are significant for WBC count 31.2, hemoglobin of 9.3, hematocrit of 29.9, MCV of 77.4, INR of 2.1, creatinine of 1.59, with a baseline around 0.85.? Lactic acid of 2.8, BNP of 453, troponin of 39.3 COVID 19-ve Chest x-ray shows increased bronchial wall thickening with patchy opacities may be infectious? Or inflammatory ?patient will be admitted for further management hospital course patient readmitted for severe sepsis due to pneumonia and his incompletey treated strep endocarditis (as he had left several times AMA prior to completion) he had bacteremia on 11/03/21 his repeat bc x2 showed no growth he has a known tricuspid bioprosthetic valve vegetation and will require atleast 6 weeks IV antibiotics. plan was to eventually discharge to complete the 6 weeks at a SNF. however, patient decided to leave against medical advice, course was also complicated by opiate dependence with withdrawal, he was managed with methadone with guidance from addiction team specialists and withdrawal resolved. patient was also noted to have acute renal failure and lactic acidosis during is hospitalization that was resolved with IV hydration. Patient was treated for back pain with Lidoderm patch and methadone, a recent CT lumbar spine November 09 showed no fractures of paraspinal abscess. Time Spent with Patient Time attestation: Total time spent providing and/or coordinating discharge services: Discharge coordination time: Greater than 30 minutes Quality: Stroke Does the patient have a stroke diagnosis?: No Physical Exam Verdana 4l Vital Signs: Verdana 4d Verdana 4d Vital Signs: Verdana 4d Verdana 4Bd Last Vital Signs Verdana 4d Parts Counter Representative New 4d Parts Counter Representative New 4d Temp 97.5 F 11/22/21 00:00 Parts Counter Representative New 4d Pulse 80 11/22/21 00:00 Parts Counter Representative New 4d Resp 18 11/22/21 00:00 BP 126/76 11/22/21 00:00 Pulse Ox 98 11/22/21 00:00 BMI result Body Mass Index 22.8 Const: Other: General: Ax O X 3, no acute distress Neck is supple Re sp:? clear to ausc ultation,? coarse breath sound,no cr ackles , no access ory muscles used C VS: S1,S2,RRR GI: soft, non tender, non distended extr emities no edema N euro:? motor gross ly intact, alert a wake answering que stions appropriate ly,no numbness cristy k positive tendern ess? lower lumbar spine and bilatera l paravertebral mu scle , no change i n exam since admis marshall Psych: approp riate affect DS: Data Data Completed and Pending Completed studies during hospitalization [Text1]: Procedures Detoxification Services for Substance Abuse Treatment (11/03/21) Labs on day of discharge: Laboratory Results - last 24 hr 11/21/21 11/22/21 15:00 10:07 Creatinine 0.94 0.92 Estim Creat Clear Calc 107.5 109.9 Estimated GFR > 60 > 60 Preliminary micro results at discharge 11/18/21 02:44 Blood Culture - Preliminary Blood - Venous No growth after 48 hours. Discharge Plan Discharge Patient Disposition: Left Against Medical Advice Discharge Diagnosis: Severe sepsis due to pneumonia and known bioprosthetic tricuspid valve endocarditis lactic acidosis acute kidney injury opiate use disorder chronic back pain Referrals: [facility] [Primary Care Provider] - 1 Week Discharge Medications: No Action No Known Home Meds 0RF Discharge Orders: Discharge Order (Routine); Ordered 11/22/21 Ordered By: Janeen Long Care Plan Goals: tricuspid endocarditis, active intra venous drug abuse strongly recommend to stay for treatment, inform patient about risk of overwhelming infection sepsis and he repeated the consequences but still decided to leave Strongly recommend to abstain from drug use Health Concerns: tricuspid valve endocarditis/ IV drug use Plan of Treatment: follow-up with primary care physician/ return to check to [facility] with any worsening symptoms of fever chills shortness of breath chest pain. Assessment: per diamond summary Discharge Date/Time: 11/22/21 10:55
--- NOTE | 2021-12-02 07:03 | PM.SEPSIS ---
Sepsis Event Note Evaluation Sepsis screening result: No Definite Risk Current stage of sepsis: severe sepsis Focused Exam Respiratory exam: Present rales and rhonchi Capillary refill: < 2 Seconds Peripheral pulse strength: 3+ Normal Peripheral pulse location: Radial Skin exam: normal turgor Date exam was performed: 11/18/21 Time exam was performed: 06:32 Problem List (1) Opioid use disorder, severe, dependence: Status: Acute
== END 2021-11-22 10:55 | disposition left against medical advice (07) | DRG 720 ==
LOC: HO.ED 11-18 04:00 → HO.EDOVER 11-18 06:33 → HO.S3 11-18 15:58
PROVIDERS: Admitting Provider Internal Medicine; Emergency Provider Emergency Medicine Emergency Medical Services; Visit Provider Hospitalist
DX: A41.9 Sepsis, unspecified organism (principal); I33.0 Acute and subacute infective endocarditis; E87.2 Acidosis; N17.9 Acute kidney failure, unspecified; J18.9 Pneumonia, unspecified organism; F17.210 Nicotine dependence, cigarettes, uncomplicated; R65.20 Severe sepsis without septic shock; F11.23 Opioid dependence with withdrawal; M54.9 Dorsalgia, unspecified; B95.5 Unspecified streptococcus as the cause of diseases classified elsewhere; Z20.822 Contact with and (suspected) exposure to COVID-19; Z71.6 Tobacco abuse counseling; Z59.02 Unsheltered homelessness; Z95.2 Presence of prosthetic heart valve; Z91.14 Patient's other noncompliance with medication regimen; Z86.711 Personal history of pulmonary embolism; Z79.01 Long term (current) use of anticoagulants
CPT/HCPCS: 36415; 71045; 80048; 80307; 81001; 82565; 83605; 83880; 84484; 85025; 85027; 85610; 85730; 87040; 87086; 87147; 87205; 87635; 93005; 93308; 96361; 96372; 96374; 99285; 99291; J0696; J1650; J2543; J3370

== ENCOUNTER 2021-11-22 11:39 | Inpatient (IN) | payer MEDICAID, SELFPAY ==
--- NOTE | ~2021-11-22 | XR_ITS ---
EXAMINATION: XR CHEST CLINICAL INFORMATION: Weakness COMPARISON: Chest x-ray 11/18/2021 TECHNIQUE: 2 views of the chest were obtained. FINDINGS: The heart is normal in size. A band in pacer leads again demonstrated. The lungs are adequately aerated. There is no lobar consolidation. Subtle blunting the left costophrenic angle likely represents atelectasis although a tiny amount of pleural fluid is also possible. Possible 1 cm sclerotic density of the right humeral head. Sternotomy hardware again noted. XR/XR chest 2V IMPRESSION: Suspected atelectasis of the left lung base. No lobar consolidation. Clinical correlation recommended.
[2021-11-22 11:44] VITALS: BP 150/90; PULSE 90; O2SAT 97
[2021-11-22 11:48] VITALS: BP 149/97; PULSE 104; RESP 18; TEMP 36.8; O2SAT 97; BMI 23.3
--- NOTE | 2021-11-22 11:58 | PC.NURSE ---
Post triage, pt ambuated with steady strong gait in no apparent distress to [facility] bathroom.
--- NOTE | 2021-11-22 12:26 | ECG_ITS ---
Test Reason : weakness Blood Pressure : / mmHG Vent. Rate : 089 BPM Atrial Rate : 089 BPM P-R Int : 132 ms QRS Dur : 082 ms QT Int : 396 ms P-R-T Axes : 071 018 030 degrees QTc Int : 481 ms Normal sinus rhythm Possible Left atrial enlargement Prolonged QT Abnormal ECG When compared with ECG of 18-NOV-2021 02:24, Vent. rate has decreased BY 48 BPM Referred By: Sarah Mccrary Electronically Signed By:VIOLET SULLIVAN
--- NOTE | 2021-11-22 12:33 | PHA.MEDREC ---
Pharmacy Consult ? Medication Reconciliation Pharmacy has completed the medication reconciliation. No known home medications. Emely Molina, KarinaD
--- NOTE | 2021-11-22 12:58 | ED_ITS ---
HPI - SOB/Dyspnea General Chief Complaint: Dyspnea Stated Complaint: SIGNED OUT AMA FROM ADMIT FOR ENDOCARDITIS PER EMS Time Seen by Provider: 11/22/21 11:58 Source: patient and EMS Mode of arrival: EMS Limitations: no limitations History of Present Illness HPI Narrative: 31-year-old male with a history of IV drug abuse, recurrent endocarditis, hepatitis-C, history of pulmonary embolism not compliant with Xarelto known tricuspid valve endocarditis not fully treated here with reports of seeking admission. Patient was admitted and left approximately 1 hour prior to arrival against medical advice. He was seen by infectious disease and his recommendation with 6 weeks of IV antibiotics. He has been admitted pending Short-term rehab placement and PICC line placement. Patient tells me he left because he had to go to the welfare office. He denies using any substances during his stay away from the hospital. On review of chart. Patient had his last dose of Q 24 2 g of ceftriaxone at on November 21 at 17:00. His next dose of ceftriaxone is 2 day at 17:00 Patient here complaining of shortness of breath and chest pain with exertion and deep breathing Related Data Home Medications Medication Instructions Recorded Confirmed No Known Home Meds 10/08/21 11/22/21 Allergies Allergy/AdvReac Type Severity Reaction Status Date / Time No Known Allergies Allergy Verified 11/03/21 05:31 [No Known Allergies*] Review of Systems Verdana 4l Review of Systems: Yes all other systems are reviewed and Verdana 4d are negative Verdana 4l Constitutional: Verdana 4d Constitutional: Verdana 4d Verdana 4d Reports no additional constitutional complaints, Denies body ache(s), Denies chills, Denies fever(s), Denies headache(s), Reports malaise and Denies weakness Verdana 4l Eyes: Verdana 4d Verdana 4d Eyes: Verdana 4d Reports no additional eye complaints and Denies change in vision Verdana 4l ENT: Verdana 4d Reports system reviewed and no additional complaints, except as documented, Denies dizziness, Denies headache(s), Denies nasal congestion, Denies nasal discharge and Denies neck pain Verdana 4l Cardiovascular: Verdana 4d Cardiovascular: Verdana 4d Verdana 4d Reports no additional cardiovascular complaints, Reports chest pain, Denies leg edema and Reports dyspnea Verdana 4l Respiratory: Verdana 4d Verdana 4d Respiratory: Verdana 4d Reports no additional respiratory complaints, Denies cough and Reports dyspnea Verdana 4l Gastrointestinal: Verdana 4d Gastrointestinal: Verdana 4d Verdana 4d Reports no additional gastrointestinal complaints, Denies abdominal pain, Denies diarrhea, Denies nausea and Denies vomiting Verdana 4l Genitourinary: Verdana 4d Verdana 4d Genitourinary: Verdana 4d Denies urinary incontinence Verdana 4l Musculoskeletal: Verdana 4d Musculoskeletal: Verdana 4d Verdana 4d Reports no additional musculoskeletal complaints, Denies back pain, Denies arthralgias, Denies joint swelling, Denies neck pain, Denies numbness and Denies tingling Verdana 4l Integumentary/Breasts: Verdana 4d Skin/Breast: Verdana 4d Verdana 4d Reports system reviewed and no additional complaints, except as docu and Denies rash Verdana 4l Neurologic: Verdana 4d Reports system reviewed and no additional complaints, except as documented, Denies Abnormal speech present, Denies dizziness, Denies headache(s), Denies numbness, Denies tingling and Denies weakness PMFSH Past Medical History Attestation statement: The following information was validated with the patient. Source: old records reviewed and nursing notes reviewed Medical History Anasarca Bacteremia Bacteremia Endocarditis HCV (hepatitis C virus) Pulmonary embolism Right heart failure Steatosis, liver Tricuspid valve stenosis Surgical History History of tricuspid valve replacement with bioprosthetic valve Social History Social History Household Members: None Household Members Other:: none. homeless Housing: Homeless Do you presently have visiting nurse or other home services: No Unable to assess alcohol history related to: Refusing to respond Alcohol intake: never Patient Tobacco Use Status: Current everyday Tobacco user Tobacco use type: Cigarette Second Hand Smoke Exposure: No Substance Use Type: IV Drugs, Marijuana and Opiates Advance Directives: Yes Advance Directives on File: Yes Advance Directives Date on File: 04/16/21 service: No Current occupational status: unemployed Physical Exam Verdana 4l Vital Signs: Verdana 4d Verdana 4d Vital Signs: Verdana 4d Verdana 4Bd Last Vital Signs Verdana 4d Society Editor New 4d Society Editor New 4d Temp 98.3 F 11/22/21 11:48 Society Editor New 4d Pulse 78 11/22/21 15:07 Society Editor New 4d Resp 16 11/22/21 15:07 BP 134/96 H 11/22/21 15:07 Pulse Ox 97 11/22/21 15:07 BMI result Body Mass Index 23.3 Const: General: cooperative, healthy appearing, comfortable and no acute distress Orientation/consciousness: patient oriented x3 Limitations: no limitations HENMT: Head: Yes normal to inspection Ears: hearing grossly normal bilaterally and TM's normal bilaterally General nose exam: Normal external nose present Face and sinus: Yes normal facial exam Mouth: Normal oral and palatal mucosa present Throat: Yes posterior oropharynx normal Eyes: General: appearance normal, both eyes and all related structures Pupils: Equal, round and reactive pupils present Neck: Neck: Yes normal visual inspection, Yes full ROM and Yes no lymphadenopathy Chest: Chest palpation & inspection: normal inspection of the chest Resp: Effort & Inspection: normal respiratory effort Auscultation: clear to auscultation bilaterally Cardio: Rate: regular rate Rhythm: regular rhythm Peripheral pulses: Peripheral pulses 2+ throughout GI: Inspection: Yes normal to inspection Palpation (GI): Soft to palpation and nontender Auscultation: normal bowel sounds Back/Spine/Pelvis: Thoracic/Lumbar Spine: thoracic and lumbar spine normal to inspection Skin: General skin exam: no rashes or lesions noted Neuro: General: patient oriented x3, no focal motor deficits and normal sensation to monofilament Cranial nerves: Yes Equal, round and reactive pupils present Cognition (Neuro): normal cognition Speech: No Abnormal speech present Gait exam (Neuro): Normal gait present Motor exam (neuro): 5/5 motor strength present throughout Extrem: General: Yes normal to inspection, Yes no pedal edema and Yes no calf tenderness Course Course Course Narrative: 31-year-old male with known tricuspid valve endocarditis and bacteremia with recommendations for 6 weeks of IV antibiotics here after leaving against medical advice 1 hour prior to arrival. Patient tells me he was walking down to the welfare clinic and did not use any substances. He returns today for admission with complaints of some chest discomfort and shortness of breath with exertion. Spoke to our social media community manager and patient is currently pending placement in a short-term rehab and PICC line placement which will not take place today or this weekend. I spoke to the medicine team who accepted admission of patient. I spoke to the pharmacy team. Patient is on Q 24 ceftriaxone and his last dose was yesterday at 17:00. His next dose is not due until 17:00 today. MDM - SOB/Dyspnea Medical Records Attestation: I reviewed the patient's medical records. Lab Data Attestation: I reviewed the patient's lab results. Result diagrams: 11/22/21 13:14 11/22/21 13:15 Labs: Lab Results 11/22/21 11/22/21 11/22/21 Range/Units 13:14 13:14 13:14 WBC 11.1 H (4.8-10.8) X10*3/uL RBC 4.41 L (4.60-5.80) X10*6/uL Hgb 10.5 L (14.0-18.0) g/dl Hct 33.4 L (42.0-52.0) % MCV 75.7 L (80.0-98.0) fL MCH 23.8 L (27.0-33.0) pg MCHC 31.4 (31.0-36.0) g/dl RDW 19.5 H (11.0-16.0) % Plt Count 178 (160-400) X10*3/uL MPV 11.4 (9.4-12.4) fL Immature Gran % (Auto) 2.3 H (0.0-0.4) % Neut % (Auto) 71.9 (45-73) % Lymph % (Auto) 15.4 L (20-40) % [place] % (Auto) 8.1 (2-11) % Eos % (Auto) 1.8 (0-4) % Baso % (Auto) 0.5 (0-2) % Lymph # (Auto) 1.7 (1.2-4.9) X10*3/uL [place] # (Auto) 0.9 (0.1-1.2) X10*3/uL Eos # (Auto) 0.2 (0.0-0.4) X10*3/uL Baso # (Auto) 0.1 (0.0-0.2) X10*3/uL Abs Immat Gran (auto) 0.25 H (0.00-0.03) X10*3/uL Absolute Neuts (auto) 8.0 (2.0-8.3) x10*3/uL Absolute Nucleated RBC 0.000 (0.0-0.012) X10*3/uL Nucleated RBC % (auto) 0.0 (0.0-0.2) /100WBC PT (9.9-13.0) SEC INR (0.9-1.1) Sodium (135-145) mmol/L Potassium (3.3-5.1) mmol/L Chloride (96-108) mmol/L Carbon Dioxide (22-29) mmol/L Anion Gap (12-20) BUN (9-16) mg/dL Creatinine (0.5-1.4) mg/dL Estim Creat Clear Calc Estimated GFR Random Glucose (60-115) mg/dL Lactic Acid (0.5-2.0) mmol/L Calcium (8.4-10.2) mg/dL Magnesium (1.6-2.6) mg/dL Total Bilirubin (0.0-1.0) mg/dL Direct Bilirubin (0.0-0.5) mg/dL AST (5-37) U/L ALT (0-40) U/L Alkaline Phosphatase (39-117) U/L Troponin I High Sens 25.5 (<3.5-35.0) ng/L Total Protein (6.5-8.0) g/dL Albumin (3.5-5.0) g/dL Urine Opiates Screen (Not Detect) Urine Fentanyl Screen (Not Detect) Ur Barbiturates Screen (Not Detect) Ur Phencyclidine Scrn (Not Detect) Ur Amphetamines Screen (Not Detect) U Benzodiazepines Scrn (Not Detect) Urine Cocaine Screen (Not Detect) U Marijuana (THC) Screen (Not Detect) Ethyl Alcohol mg/dL COVID-19 ([facility]) Negative (Negative) COVID-19 Clin Com See Note 11/22/21 11/22/21 11/22/21 Range/Units 13:14 13:14 13:14 WBC (4.8-10.8) X10*3/uL RBC (4.60-5.80) X10*6/uL Hgb (14.0-18.0) g/dl Hct (42.0-52.0) % MCV (80.0-98.0) fL MCH (27.0-33.0) pg MCHC (31.0-36.0) g/dl RDW (11.0-16.0) % Plt Count (160-400) X10*3/uL MPV (9.4-12.4) fL Immature Gran % (Auto) (0.0-0.4) % Neut % (Auto) (45-73) % Lymph % (Auto) (20-40) % [place] % (Auto) (2-11) % Eos % (Auto) (0-4) % Baso % (Auto) (0-2) % Lymph # (Auto) (1.2-4.9) X10*3/uL [place] # (Auto) (0.1-1.2) X10*3/uL Eos # (Auto) (0.0-0.4) X10*3/uL Baso # (Auto) (0.0-0.2) X10*3/uL Abs Immat Gran (auto) (0.00-0.03) X10*3/uL Absolute Neuts (auto) (2.0-8.3) x10*3/uL Absolute Nucleated RBC (0.0-0.012) X10*3/uL Nucleated RBC % (auto) (0.0-0.2) /100WBC PT 17.2 H (9.9-13.0) SEC INR 1.5 H (0.9-1.1) Sodium (135-145) mmol/L Potassium (3.3-5.1) mmol/L Chloride (96-108) mmol/L Carbon Dioxide (22-29) mmol/L Anion Gap (12-20) BUN (9-16) mg/dL Creatinine (0.5-1.4) mg/dL Estim Creat Clear Calc Estimated GFR Random Glucose (60-115) mg/dL Lactic Acid 1.0 (0.5-2.0) mmol/L Calcium (8.4-10.2) mg/dL Magnesium (1.6-2.6) mg/dL Total Bilirubin (0.0-1.0) mg/dL Direct Bilirubin (0.0-0.5) mg/dL AST (5-37) U/L ALT (0-40) U/L Alkaline Phosphatase (39-117) U/L Troponin I High Sens (<3.5-35.0) ng/L Total Protein (6.5-8.0) g/dL Albumin (3.5-5.0) g/dL Urine Opiates Screen (Not Detect) Urine Fentanyl Screen (Not Detect) Ur Barbiturates Screen (Not Detect) Ur Phencyclidine Scrn (Not Detect) Ur Amphetamines Screen (Not Detect) U Benzodiazepines Scrn (Not Detect) Urine Cocaine Screen (Not Detect) U Marijuana (THC) Screen (Not Detect) Ethyl Alcohol < 10 mg/dL COVID-19 ([facility]) (Negative) COVID-19 Clin Com 11/22/21 11/22/21 Range/Units 13:15 13:15 WBC (4.8-10.8) X10*3/uL RBC (4.60-5.80) X10*6/uL Hgb (14.0-18.0) g/dl Hct (42.0-52.0) % MCV (80.0-98.0) fL MCH (27.0-33.0) pg MCHC (31.0-36.0) g/dl RDW (11.0-16.0) % Plt Count (160-400) X10*3/uL MPV (9.4-12.4) fL Immature Gran % (Auto) (0.0-0.4) % Neut % (Auto) (45-73) % Lymph % (Auto) (20-40) % [place] % (Auto) (2-11) % Eos % (Auto) (0-4) % Baso % (Auto) (0-2) % Lymph # (Auto) (1.2-4.9) X10*3/uL [place] # (Auto) (0.1-1.2) X10*3/uL Eos # (Auto) (0.0-0.4) X10*3/uL Baso # (Auto) (0.0-0.2) X10*3/uL Abs Immat Gran (auto) (0.00-0.03) X10*3/uL Absolute Neuts (auto) (2.0-8.3) x10*3/uL Absolute Nucleated RBC (0.0-0.012) X10*3/uL Nucleated RBC % (auto) (0.0-0.2) /100WBC PT (9.9-13.0) SEC INR (0.9-1.1) Sodium 138 (135-145) mmol/L Potassium 4.6 D (3.3-5.1) mmol/L Chloride 112 H (96-108) mmol/L Carbon Dioxide 20 L (22-29) mmol/L Anion Gap 11 L (12-20) BUN 16 (9-16) mg/dL Creatinine 0.83 (0.5-1.4) mg/dL Estim Creat Clear Calc 114.2 Estimated GFR > 60 Random Glucose 58 L* (60-115) mg/dL Lactic Acid (0.5-2.0) mmol/L Calcium 8.7 (8.4-10.2) mg/dL Magnesium 1.5 L (1.6-2.6) mg/dL Total Bilirubin 0.6 (0.0-1.0) mg/dL Direct Bilirubin 0.4 (0.0-0.5) mg/dL AST 30 D (5-37) U/L ALT 20 (0-40) U/L Alkaline Phosphatase 236 H D (39-117) U/L Troponin I High Sens (<3.5-35.0) ng/L Total Protein 6.6 (6.5-8.0) g/dL Albumin 3.1 L D (3.5-5.0) g/dL Urine Opiates Screen Not Detected (Not Detect) Urine Fentanyl Screen POSITIVE H (Not Detect) Ur Barbiturates Screen Not Detected (Not Detect) Ur Phencyclidine Scrn Not Detected (Not Detect) Ur Amphetamines Screen Not Detected (Not Detect) U Benzodiazepines Scrn Not Detected (Not Detect) Urine Cocaine Screen Not Detected (Not Detect) U Marijuana (THC) Screen Not Detected (Not Detect) Ethyl Alcohol mg/dL COVID-19 ([facility]) (Negative) COVID-19 Clin Com Imaging Data Chest x-ray: Attestation: I personally reviewed and interpreted this imaging study as follows: Radiologist's impression: [facility] [address] [place] [address] XRay Report Signed Patient: Norberto Marquez MR#: [id number] : 1990 Acct:[id number] Age/Sex: 31 / M ADM Date: 11/22/21 Loc: HO.ED Attending Dr: Ordering Physician: Sarah Mccrary NP Date of Service: 11/22/21 Procedure(s): XR chest 2V Accession Number(s): [id number] cc: Sarah Mccrary NP~ EXAMINATION: XR CHEST CLINICAL INFORMATION: Weakness COMPARISON: Chest x-ray 11/18/2021 TECHNIQUE: 2 views of the chest were obtained. FINDINGS: The heart is normal in size. A band in pacer leads again demonstrated. The lungs are adequately aerated. There is no lobar consolidation. Subtle blunting the left costophrenic angle likely represents atelectasis although a tiny amount of pleural fluid is also possible. Possible 1 cm sclerotic density of the right humeral head. Sternotomy hardware again noted. XR/XR chest 2V IMPRESSION: Suspected atelectasis of the left lung base. No lobar consolidation. Clinical correlation recommended. ECG Data Attestation: I personally reviewed and interpreted this ECG as follows: ECG interpretation date: 11/22/21 ECG interpretation time: 14:01 Interpretation: Normal sinus rhythm with a rate 89, normal ME, normal QRS, normal QT Discharge Plan Discharge Clinical Impression: Bacteremia Patient Disposition: Admitted As Inpatient
[2021-11-22 13:55] LABS: COVID-19 Test Negative (Negative); IDNOW Serial# 9DD0AD1C
[2021-11-22 13:56] LABS: Amphetamine Screen Urine Not Detected (Not Detect); Barbiturates, Urine Not Detected (Not Detect); Benzodiazepines Screen Urine Not Detected (Not Detect); Cannabinoid Screen Urine Not Detected (Not Detect); Cocaine Screen Urine Not Detected (Not Detect); Fentanyl, urine POSITIVE (Not Detect); Opiate Screen Urine Not Detected (Not Detect); Phencyclidine Screen Urine Not Detected (Not Detect)
[2021-11-22 14:06] LABS: MANUAL DIFF FLAG NO
[2021-11-22 14:14] LABS: Basophils Absolute Auto 0.1 X10*3/uL (0.0-0.2); Basophils Percent Auto 0.5 % (0-2); Eosinophils Absolute Auto 0.2 X10*3/uL (0.0-0.4); Eosinophils Percent Auto 1.8 % (0-4); Hematocrit 33.4 % (42.0-52.0); Hemoglobin 10.5 g/dl (14.0-18.0); Imm Gran Abs Auto 0.25 X10*3/uL (0.00-0.03); Imm Gran Pct Auto 2.3 % (0.0-0.4); Lymphocytes Absolute Auto 1.7 X10*3/uL (1.2-4.9); Lymphocytes Percent Auto 15.4 % (20-40); Mean Corpuscular HGB Conc 31.4 g/dl (31.0-36.0); Mean Corpuscular Hemoglobin 23.8 pg (27.0-33.0); Mean Corpuscular Volume 75.7 fL (80.0-98.0); Mean Platelet Volume 11.4 fL (9.4-12.4); Monocytes Absolute Auto 0.9 X10*3/uL (0.1-1.2); Monocytes Percent Auto 8.1 % (2-11); Neutrophils Percent Auto 71.9 % (45-73); Platelet Count 178 X10*3/uL (160-400); Red Blood Count 4.41 X10*6/uL (4.60-5.80); Red Cell Distribution Width 19.5 % (11.0-16.0); White Blood Count 11.1 X10*3/uL (4.8-10.8)
[2021-11-22 14:22] LABS: Troponin-I High Sensitivity 25.5 ng/L (<3.5-35.0)
[2021-11-22 14:32] LABS: Ethanol < 10 mg/dL
[2021-11-22 14:37] LABS: Alanine Aminotransferase 20 U/L (0-40); Albumin Level 3.1 g/dL (3.5-5.0); Alkaline Phosphatase 236 U/L (39-117); Anion Gap 11 (12-20); Aspartate Amino Transferase 30 U/L (5-37); Bilirubin Direct 0.4 mg/dL (0.0-0.5); Bilirubin Total 0.6 mg/dL (0.0-1.0); Blood Urea Nitrogen 16 mg/dL (9-16); Calcium 8.7 mg/dL (8.4-10.2); Carbon Dioxide 20 mmol/L (22-29); Chloride 112 mmol/L (96-108); Creatinine Clr Calc Pharmacy 114.2; Estimated Glomerular Filt Rate > 60; Glucose Random 58 mg/dL (60-115); Magnesium 1.5 mg/dL (1.6-2.6); Potassium 4.6 mmol/L (3.3-5.1); Sodium 138 mmol/L (135-145); Total Protein 6.6 g/dL (6.5-8.0)
[2021-11-22 14:39] LABS: INTERNATIONAL NORM RATIO 1.5 (0.9-1.1); Prothrombin Time 17.2 SEC (9.9-13.0)
[2021-11-22] MEDS: Ketorolac Tromethamine 30 MG/ML VIAL IVPUSH (15:00)
[2021-11-22 15:07] VITALS: BP 134/96; PULSE 78; RESP 16; O2SAT 97
[2021-11-22] MEDS: 0.9 % Sodium Chloride Flush 3 ML SYRINGE IVFLUSH (15:07)
--- NOTE | 2021-11-22 15:10 | P.HPHOSP_ITS ---
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 ,Patient was admitted on 11/18 due to symptoms of shortness breath, with generalized pain in the emergency room patient was found to be septic with elevated WBC count, low blood pr essures, tachycardia, and was placed on broad-spectrum antibiotic and admitted to medical floor, subsequently his blood cultures came back negative he had a repeat echocardiogram that showed significant stenosis of prosthetic tricuspid valve , his chest x-ray showed bilateral infiltrate COVID was negative patient was seen by infectious disease and 6 weeks of IV antibiotics were recommended patient was also seen by addiction team and was receiving methadone with history of IV drug abuse however patient decided to leave hospi1 hour ago, he tells that he left because he had to go to welfare office that was close and he returned back to [facility] due to recurrent shortness of breath, he denies use of IV drug, he is complaining of left lower chest discomfort with deep breathing and cough productive of yellow phlegm, he is willing to stay in the hospital to finish the course of antibiotics and also willing to go to rehab, he is requesting for pain medications for his chronic lower back pain, he denies any fever chills, no nausea, no vomiting no abdominal pain or diarrhea. chest x-ray obtained in the ED showed no infiltrate, repeat blood cultures x2 have been sent, COVID-19 negative Review of Systems Verdana 4l Review of Systems: Verdana 4d Verdana 4d General no headache, no dizziness no fever chills. CVS left lower quadrant chest pain with deep breathing, no palpitation. Respiratory cough productive of yellow phlegm, shortness of breath with exertion Gastrointestinal no nausea nono vomiting, no abdominal pain musculoskeletal lower back pain unchanged no urinary urgency, no incontinence Yes all other systems are reviewed and are negative [facility] Medical History Anasarca Bacteremia Bacteremia Endocarditis HCV (hepatitis C virus) Pulmonary embolism Right heart failure Steatosis, liver Tricuspid valve stenosis Pertinent family history: Patient unaware of his family history . Surgical History History of tricuspid valve replacement with bioprosthetic valve Social History Household Members: None Household Members Other:: none. homeless Housing: Homeless Do you presently have visiting nurse or other home services: No Unable to assess alcohol history related to: Refusing to respond Alcohol intake: never Patient Tobacco Use Status: Current everyday Tobacco user Tobacco use type: Cigarette Cigarette Packs Per Day: 1 Cigarettes Per Day: 20.0 Years Smoked: 10 Second Hand Smoke Exposure: No Substance Use Type: Heroin and Marijuana Advance Directives Date on File: 04/16/21 service: No Current occupational status: unemployed Meds Allergies Allergy/AdvReac Type Severity Reaction Status Date / Time No Known Allergies Allergy Verified 11/03/21 05:31 [No Known Allergies*] Active Medications: Current Medications Acetaminophen (Acetaminophen 325 Mg Tablet) 650 mg PO Q6H PRN PRN Reason: Pain, Mild (Pain Scale 1-3) Clonidine HCl (Clonidine Hcl 0.1 Mg Tablet) 0.1 mg PO TID PRN; Protocol PRN Reason: anxiety/restlessness Enoxaparin Sodium (Enoxaparin Sodium 40 Mg/0.4 Ml Syringe) 40 mg SUBCUT Q24H [facility] Ceftriaxone Sodium 2 gm/ (Sodium Chloride) 50 mls @ 100 mls/hr IV Q24H [facility] Methadone HCl (Methadone Hcl 20 Mg/2 Ml Oral.Conc) 25 mg PO DAILY C[facility] Methadone HCl (Methadone Hcl 20 Mg/2 Ml Oral.Conc) 15 mg PO DAILY@1900 [facility] Ondansetron HCl (Ondansetron Hcl 4 Mg/2 Ml Vial) 4 mg IVPUSH Q8H PRN PRN Reason: Nausea and Vomiting Pharmacy Consult (Consult Rx Perform Med Rec) 1 each MISCELLANE ONCE PRN PRN Reason: Consult order Sodium Chloride (0.9 % Sodium Chloride Flush 3 Ml Syringe) 3 ml IVFLUSH QSHIFT [facility] Last Admin: 11/22/21 15:07 Dose: 3 ml Documented by: Home Medications Medication Instructions Recorded Confirmed Last Taken Type No Known Home Meds 10/08/21 11/22/21 Unknown History Physical Exam Verdana 4l Vital Signs and Narrative: Verdana 4d Verdana 4d Vital Signs: Verdana 4d Verdana 4Bd Last Vital Signs Verdana 4d Mud Mixer Helper New 4d Mud Mixer Helper New 4d Temp 98.3 F 11/22/21 11:48 Mud Mixer Helper New 4d Pulse 78 11/22/21 15:07 Mud Mixer Helper New 4d Resp 16 11/22/21 15:07 BP 134/96 H 11/22/21 15:07 Pulse Ox 97 11/22/21 15:07 BMI result Body Mass Index 23.3 Const: Other: General: Ax O X 3, no acute distress HEENT:PERRLA, oral mucosa moist neck is supple Resp:? clear to auscultation, no respiratory distress, no wheeze?,no crackles , no accessory muscles used CVS: S1,S2,RRR GI: soft, non tender, non distended extremities no edema Neuro:? motor grossly intact, alert awake answering questions appropriately back positive tenderness? lower lumbar spine and bilateral paravertebral muscle, no redness no swelling Psych: appropriate affect, appropriate insight? Results Labs CBC and Chem 7: 11/22/21 13:14 11/22/21 13:15 Labs: Laboratory Results - last 24 hr 11/22/21 11/22/21 11/22/21 13:14 13:14 13:14 MCV 75.7 L MCH 23.8 L MCHC 31.4 RDW 19.5 H Plt Count 178 MPV 11.4 Immature Gran % (Auto) 2.3 H Neut % (Auto) 71.9 Lymph % (Auto) 15.4 L [place] % (Auto) 8.1 Eos % (Auto) 1.8 Baso % (Auto) 0.5 Lymph # (Auto) 1.7 [place] # (Auto) 0.9 Eos # (Auto) 0.2 Baso # (Auto) 0.1 Abs Immat Gran (auto) 0.25 H Absolute Neuts (auto) 8.0 Absolute Nucleated RBC 0.000 Nucleated RBC % (auto) 0.0 PT 17.2 H INR 1.5 H Anion Gap Estim Creat Clear Calc Estimated GFR Random Glucose Lactic Acid Calcium Magnesium Total Bilirubin Direct Bilirubin AST ALT Alkaline Phosphatase Total Protein Albumin Urine Opiates Screen Urine Fentanyl Screen Ur Barbiturates Screen Ur Phencyclidine Scrn Ur Amphetamines Screen U Benzodiazepines Scrn Urine Cocaine Screen U Marijuana (THC) Screen Ethyl Alcohol COVID-19 ([facility]) Negative COVID-19 Clin Com See Note 02/02/0711/22/21 11/22/21 13:14 13:14 13:15 MCV MCH MCHC RDW Plt Count MPV Immature Gran % (Auto) Neut % (Auto) Lymph % (Auto) [place] % (Auto) Eos % (Auto) Baso % (Auto) Lymph # (Auto) [place] # (Auto) Eos # (Auto) Baso # (Auto) Abs Immat Gran (auto) Absolute Neuts (auto) Absolute Nucleated RBC Nucleated RBC % (auto) PT INR Anion Gap 11 L Estim Creat Clear Calc 114.2 Estimated GFR > 60 Random Glucose 58 L* Lactic Acid 1.0 Calcium 8.7 Magnesium 1.5 L Total Bilirubin 0.6 Direct Bilirubin 0.4 AST 30 D ALT 20 Alkaline Phosphatase 236 H D Total Protein 6.6 Albumin 3.1 L D Urine Opiates Screen Urine Fentanyl Screen Ur Barbiturates Screen Ur Phencyclidine Scrn Ur Amphetamines Screen U Benzodiazepines Scrn Urine Cocaine Screen U Marijuana (THC) Screen Ethyl Alcohol < 10 COVID-19 ([facility]) COVID-19 [facility] 11/22/21 13:15 MCV MCH MCHC RDW Plt Count MPV Immature Gran % (Auto) Neut % (Auto) Lymph % (Auto) [place] % (Auto) Eos % (Auto) Baso % (Auto) Lymph # (Auto) [place] # (Auto) Eos # (Auto) Baso # (Auto) Abs Immat Gran (auto) Absolute Neuts (auto) Absolute Nucleated RBC Nucleated RBC % (auto) PT INR Anion Gap Estim Creat Clear Calc Estimated GFR Random Glucose Lactic Acid Calcium Magnesium Total Bilirubin Direct Bilirubin AST ALT Alkaline Phosphatase Total Protein Albumin Urine Opiates Screen Not Detected Urine Fentanyl Screen POSITIVE H Ur Barbiturates Screen Not Detected Ur Phencyclidine Scrn Not Detected Ur Amphetamines Screen Not Detected U Benzodiazepines Scrn Not Detected Urine Cocaine Screen Not Detected U Marijuana (THC) Screen Not Detected Ethyl Alcohol COVID-19 ([facility]) COVID-19 [facility] Imaging Radiologist's Impressions: Impressions Chest X-Ray 11/22/21 13:39 IMPRESSION: Suspected atelectasis of the left lung base. No lobar consolidation. Clinical correlation recommended. Assessment and Plan (1) S/P tricuspid valve replacement: Status: Acute (2) Endocarditis: Status: Acute (3) Opioid use disorder, severe, dependence: Status: Acute Plan 31 M with PMH of IVDA, endocarditis, tricuspid valve stenosis, pulmonary embolism on Xarelto-noncompliant, history of hep C, IV drug abuse/opiate dependence, history of bacteremia, hepatic steatosis, history of tricuspid valve replacement with bioprosthetic valve,in July of 2021? admitted to [facility] for endocarditis-left AMA, interrupted antibiotic therapy has had multiple admissions to [facility],with most recent admission to the hospital from 11/04 to 11/11? patient left against medical advice, was supposed to receive 6 weeks of IV antibiotic for Streptococcus sanguinous/ Streptococcus viridans pneumonia , patient readmitted on November 18 for sepsis related to endocarditis and pneumonia patient left hospital 1 hour ago and return back due to worsening shortness of breath and productive cough. It therefore being readmitted with a diagnosis of un treated tricuspid valve endocarditis # Known bioprosthetic tricuspid valve endocarditis not fully treated ? afebrile, no evidence of recurrent sepsis ? repeat blood culture from 11/18 grew coagulase-negative Staph in 1/2 bottles unlikely pathogen ? repeat echocardiogram during last visit showed? severe stenosis of prosthetic tricuspid valve with mean gradient of 14 as well as vegetation, patient recently evaluated at [facility] in June of 2021 and it was felt that he is at a very high risk for mortality from reoperation and additionally? due to ongoing drug use he was also at high risk for new valve infection ?? ID recommended IV ceftriaxone 2 g for 6 weeks # shortness of breath with exertion x-ray shows atelectasis, will add incentive spirometry, cough medications prn. ? # chronic back pain? as per patient has ongoing back pain, no acute worsening, localize to? lower lumbar/ tailbone CT lumbar spine 11/09 showed no fracture or paraspinal abscess, no lower extremity weakness follow clinical course, and add oxycodone for pain control # opioid use disorder case discussed with Tami Luna she will place patient on methadone? # tobacco use disorder will place on nicotine patch 21 mg daily and add Nicorette gums for nicotine withdrawal as needed, counseling done # DVT prophylaxis with Lovenox ? Quality Stroke Does the patient have a stroke diagnosis?: No VTE Prior VTE?: No VTE Risk Level:: Medical - moderate - high VTE Device Contraindication: Treatment Not Indicated VTE Drug Contraindication: N/A - Med Ordered
[2021-11-22] MEDS: cefTRIAXone sodium 2 GM in 0.9 % Sodium Chloride 50 ML IV (16:10)
[2021-11-22] MEDS: Nicotine 21 MG PATCH.TD24 TRANSDERMA (16:25)
--- NOTE | 2021-11-22 17:14 | P.PNADD_ITS ---
Subjective Subjective Date of Service: 11/22/21 Reason For Visit: infective endocarditis/ polysubstance abuse Interim History: Patient left AMA earlier this morning, and returned to ED a couple of hours later, citing SOB and dyspnea. Seen by this life insurance underwriter upon return. Denies any illicit substance use since leaving the hospital, and does not appear to be impaired at time of interview. Patient stating that he wishes to complete IV antibiotics treatment. He felt pain was not being addressed before and reported this is the reason he decided to leave. Discussed importance of verbalizing needs to treatment team before deciding to leave. Discussed possible treatment options to address reported pain--he requested oxycodone as he felt this was most helpful in previous admissions. Discussed limitations/concerns previously with narcotic medications secondary to patients level of sedation, but agreed that once more alert, medications could be titrated--this included methadone. Patient agreeable. Met with patient and attending provider, Dr. Anderson. Collaborated on treatment plan with patient. Reminded of risks associated with not completing treatment for endocarditis--including . Also reminded patient of benefits to completing treatment. Patient agreeable. Review of Systems Constitutional: Reports body ache(s), Reports chills, Reports fatigue, Reports lethargy, Reports malaise and Reports weakness Cardiovascular: Reports dyspnea and Reports dyspnea on exertion Respiratory: Reports pain on inspiration, Reports pain with cough, Reports dyspnea and Reports dyspnea on exertion Gastrointestinal: Denies loose stools, Denies nausea and Denies vomiting Reports weakness Psychiatric: Reports anxiety Endocrine: Reports fatigue Mental Status Exam Mental Status Exam Level of Consciousness: Awake, Appropriate and Alert Mood Description: Calm and Appropriate Affect Description: Calm and Appropriate Patient Cognition Impaired: No Speech Pattern: Clear Thought Process: Goal Oriented Thought Content: positive for Goal Oriented Judgement: Fair Diagnostics Vital Signs (24Hr): Vital Signs - 24 hr 11/22/21 11:48 11/22/21 15:07 Temperature 98.3 F Pulse Rate 104 H 78 Respiratory Rate 18 16 Blood Pressure 149/97 H 134/96 H Pulse Oximetry 97 97 BMI result Verdana 4 Body Mass Index Verdana 4 23.3 Verdana 4 Verdana 4 Labs Results: 11/22/21 13:14 11/22/21 13:15 Labs: Laboratory Results - last 48 hr 11/22/21 11/22/21 11/22/21 13:14 13:14 13:14 WBC 11.1 H RBC 4.41 L Hgb 10.5 L Hct 33.4 L MCV 75.7 L MCH 23.8 L MCHC 31.4 RDW 19.5 H Plt Count 178 MPV 11.4 Immature Gran % (Auto) 2.3 H Neut % (Auto) 71.9 Lymph % (Auto) 15.4 L [place] % (Auto) 8.1 Eos % (Auto) 1.8 Baso % (Auto) 0.5 Lymph # (Auto) 1.7 [place] # (Auto) 0.9 Eos # (Auto) 0.2 Baso # (Auto) 0.1 Abs Immat Gran (auto) 0.25 H Absolute Neuts (auto) 8.0 Absolute Nucleated RBC 0.000 Nucleated RBC % (auto) 0.0 PT INR Sodium Potassium Chloride Carbon Dioxide Anion Gap BUN Creatinine Estim Creat Clear Calc Estimated GFR Random Glucose Lactic Acid Calcium Magnesium Total Bilirubin Direct Bilirubin AST ALT Alkaline Phosphatase Troponin I High Sens 25.5 Total Protein Albumin Urine Opiates Screen Urine Fentanyl Screen Ur Barbiturates Screen Ur Phencyclidine Scrn Ur Amphetamines Screen U Benzodiazepines Scrn Urine Cocaine Screen U Marijuana (THC) Screen Ethyl Alcohol COVID-19 ([facility]) Negative COVID-[employer] Com See Note 11/22/21 11/22/21 11/22/21 13:14 13:14 13:14 WBC RBC Hgb Hct MCV MCH MCHC RDW Plt Count MPV Immature Gran % (Auto) Neut % (Auto) Lymph % (Auto) [place] % (Auto) Eos % (Auto) Baso % (Auto) Lymph # (Auto) [place] # (Auto) Eos # (Auto) Baso # (Auto) Abs Immat Gran (auto) Absolute Neuts (auto) Absolute Nucleated RBC Nucleated RBC % (auto) PT 17.2 H INR 1.5 H Sodium Potassium Chloride Carbon Dioxide Anion Gap BUN Creatinine Estim Creat Clear Calc Estimated GFR Random Glucose Lactic Acid 1.0 Calcium Magnesium Total Bilirubin Direct Bilirubin AST ALT Alkaline Phosphatase Troponin I High Sens Total Protein Albumin Urine Opiates Screen Urine Fentanyl Screen Ur Barbiturates Screen Ur Phencyclidine Scrn Ur Amphetamines Screen U Benzodiazepines Scrn Urine Cocaine Screen U Marijuana (THC) Screen Ethyl Alcohol < 10 COVID-19 ([facility]) COVID-[employer] Com 11/22/21 11/22/21 13:15 13:15 WBC RBC Hgb Hct MCV MCH MCHC RDW Plt Count MPV Immature Gran % (Auto) Neut % (Auto) Lymph % (Auto) [place] % (Auto) Eos % (Auto) Baso % (Auto) Lymph # (Auto) [place] # (Auto) Eos # (Auto) Baso # (Auto) Abs Immat Gran (auto) Absolute Neuts (auto) Absolute Nucleated RBC Nucleated RBC % (auto) PT INR Sodium 138 Potassium 4.6 D Chloride 112 H Carbon Dioxide 20 L Anion Gap 11 L BUN 16 Creatinine 0.83 Estim Creat Clear Calc 114.2 Estimated GFR > 60 Random Glucose 58 L* Lactic Acid Calcium 8.7 Magnesium 1.5 L Total Bilirubin 0.6 Direct Bilirubin 0.4 AST 30 D ALT 20 Alkaline Phosphatase 236 H D Troponin I High Sens Total Protein 6.6 Albumin 3.1 L D Urine Opiates Screen Not Detected Urine Fentanyl Screen POSITIVE H Ur Barbiturates Screen Not Detected Ur Phencyclidine Scrn Not Detected Ur Amphetamines Screen Not Detected U Benzodiazepines Scrn Not Detected Urine Cocaine Screen Not Detected U Marijuana (THC) Screen Not Detected Ethyl Alcohol COVID-19 ([facility]) COVID-19 Clin Com Imaging Radiology Impressions: ITS Impressions Chest X-Ray 11/22/21 13:39 IMPRESSION: Suspected atelectasis of the left lung base. No lobar consolidation. Clinical correlation recommended. Medications Medications Current Medications Acetaminophen (Acetaminophen 325 Mg Tablet) 650 mg PO Q6H PRN PRN Reason: Pain, Mild (Pain Scale 1-3) Clonidine HCl (Clonidine Hcl 0.1 Mg Tablet) 0.1 mg PO TID PRN; Protocol PRN Reason: anxiety/restlessness Enoxaparin Sodium (Enoxaparin Sodium 40 Mg/0.4 Ml Syringe) 40 mg SUBCUT Q24H [facility] Last Admin: 11/22/21 17:00 Dose: Not Given Documented by: Ceftriaxone Sodium 2 gm/ (Sodium Chloride) 50 mls @ 100 mls/hr IV Q24H [facility] Last Infusion: 11/22/21 17:00 Dose: Infused Documented by: Methadone HCl (Methadone Hcl 20 Mg/2 Ml Oral.Conc) 25 mg PO DAILY [facility] Methadone HCl (Methadone Hcl 20 Mg/2 Ml Oral.Conc) 15 mg PO DAILY@1900 [facility] Nicotine (Nicotine 21 Mg Patch.Td24) 21 mg TRANSDERMA DAILY [facility] Last Admin: 11/22/21 16:25 Dose: 21 mg Documented by: Nicotine Polacrilex (Nicotine Polacrilex 2 Mg Gum) 2 mg BUCCAL Q2H PRN PRN Reason: Nicotine Cravings Ondansetron HCl (Ondansetron Hcl 4 Mg/2 Ml Vial) 4 mg IVPUSH Q8H PRN PRN Reason: Nausea and Vomiting Oxycodone HCl (Oxycodone Hcl Immed Release 5 Mg Tablet) 5 mg PO Q6H PRN PRN Reason: Pain, Severe (Pain Scale 7-10) Pharmacy Consult (Consult Rx Perform Med Rec) 1 each MISCELLANE ONCE PRN PRN Reason: Consult order Sodium Chloride (0.9 % Sodium Chloride Flush 3 Ml Syringe) 3 ml IVFLUSH QSHIFT [facility] Last Admin: 11/22/21 15:07 Dose: 3 ml Documented by: Allergies Allergies Allergy/AdvReac Type Severity Reaction Status Date / Time No Known Allergies Allergy Verified 11/03/21 05:31 [No Known Allergies*] Assessment & Plan Assessment & Plan (1) Opioid use disorder, severe, dependence: Status: Acute Code(s): F11.20 - Opioid dependence, uncomplicated Assessment and Plan: * methadone 25mg AM and 15mg in the evening * will titrate as necessary * clonidine TID PRN for anxiety or restlessness * will follow up over the weekend (2) Endocarditis of tricuspid valve: Status: Acute Code(s): I07.9 - Rheumatic tricuspid valve disease, unspecified I spent ___50___ minutes with the patient and/or on the patient floor today, greater than?50% of which was spent counseling/coordinating care.
[2021-11-22 18:15] VITALS: BP 134/95; PULSE 69; RESP 14; O2SAT 95
[2021-11-22] MEDS: oxyCODONE HCl Immed Release 5 MG TABLET PO (21:25)
[2021-11-22] MEDS: methADONE HCl 20 MG/2 ML ORAL.CONC 15 MG PO (21:25)
[2021-11-22 21:52] VITALS: BP 132/83; PULSE 75; RESP 18; TEMP 36.3; O2SAT 98
[2021-11-22] MEDS: cloNIDine HCL 0.1 MG TABLET PO (22:46)
[2021-11-22 23:46] VITALS: BP 125/85; PULSE 75; RESP 18; TEMP 36.2; O2SAT 96
[2021-11-23] MEDS: traZODone HCL 25 MG HALFTAB PO (00:09)
[2021-11-23] MEDS: 0.9 % Sodium Chloride Flush 3 ML SYRINGE IVFLUSH ×4 (00:10→19:45)
--- NOTE | 2021-11-23 08:31 | MHC.CM.PN ---
PATIENT IS A RE-ADMIT PLAN IS FOR BED SEARCH FOR LT IV ABX. NO BED OFFERS OR OFFERS TO FOLLOW OF THIS NOTE HE DOES HAVE A HCP ON FILE NOT COVID VACCINATED BUT IS CONSIDERING AND WILL LET CASE MANAGEMENT KNOW CASE MANAGEMENT FOLLOWING
[2021-11-23] MEDS: Nicotine 21 MG PATCH.TD24 TRANSDERMA (09:17)
[2021-11-23] MEDS: methADONE HCl 20 MG/2 ML ORAL.CONC 25 MG PO (09:18)
[2021-11-23] MEDS: oxyCODONE HCl Immed Release 5 MG TABLET PO ×3 (09:23→21:27)
--- NOTE | 2021-11-23 10:13 | P.PNIM_ITS ---
Subjective Subjective Date of Service: 11/23/21 Interval History: refusing to provide history since wants to be left alone and sleep, Answering no to all questions, no acute issues overnight, vitals are stable, no fevers. Review of Systems Review of Systems: Yes all other systems are reviewed and are negative Physical Exam Verdana 4l Vital Signs: Verdana 4d Verdana 4d Vital Signs: Verdana 4d Verdana 4Bd Last Vital Signs Verdana 4d Day Care Attendant New 4d Day Care Attendant New 4d Temp 97.1 F 11/22/21 23:46 Day Care Attendant New 4d Pulse 75 11/22/21 23:46 Day Care Attendant New 4d Resp 18 11/22/21 23:46 BP 125/85 11/22/21 23:46 Pulse Ox 96 11/22/21 23:46 BMI result Body Mass Index 23.3 Const: Other: General: Ax O X 3, no acute distress Neck is supple Resp:? clear to auscultation,? coarse breath sound,no crackles , no accessory muscles used CVS: S1,S2,RRR GI: soft, non tender, non distended extremities no edema Neuro:? motor grossly intact, alert awake answering questions appropriately back examination :positive tenderness? lower lumbar spine and bilateral paravertebral muscle , no change since yesterday Psych: appropriate affect, appropriate insight? Objective Data Active Medications Acetaminophen (Acetaminophen 325 Mg Tablet) 650 mg PO Q6H PRN PRN Reason: Pain, Mild (Pain Scale 1-3) Clonidine HCl (Clonidine Hcl 0.1 Mg Tablet) 0.1 mg PO TID PRN; Protocol PRN Reason: anxiety/restlessness Last Admin: 11/22/21 22:46 Dose: 0.1 mg Documented by: LORRI Enoxaparin Sodium (Enoxaparin Sodium 40 Mg/0.4 Ml Syringe) 40 mg SUBCUT Q24H [facility] Last Admin: 11/22/21 17:00 Dose: Not Given Documented by: MAURIZIO Non-Admin Reason: Patient Refused Ceftriaxone Sodium 2 gm/ (Sodium Chloride) 50 mls @ 100 mls/hr IV Q24H [facility] Last Infusion: 11/22/21 17:00 Dose: 0 mls/hr Documented by: MAURIZIO Methadone HCl (Methadone Hcl 20 Mg/2 Ml Oral.Conc) 25 mg PO DAILY [facility] Last Admin: 11/23/21 09:18 Dose: 25 mg Documented by: BRIAN Methadone HCl (Methadone Hcl 20 Mg/2 Ml Oral.Conc) 15 mg PO DAILY@1900 [facility] Last Admin: 11/22/21 21:25 Dose: 15 mg Documented by: MARS Nicotine (Nicotine 21 Mg Patch.Td24) 21 mg TRANSDERMA DAILY [facility] Last Admin: 11/23/21 09:17 Dose: 21 mg Documented by: BRIAN Nicotine Polacrilex (Nicotine Polacrilex 2 Mg Gum) 2 mg BUCCAL Q2H PRN PRN Reason: Nicotine Cravings Ondansetron HCl (Ondansetron Hcl 4 Mg/2 Ml Vial) 4 mg IVPUSH Q8H PRN PRN Reason: Nausea and Vomiting Oxycodone HCl (Oxycodone Hcl Immed Release 5 Mg Tablet) 5 mg PO Q6H PRN PRN Reason: Pain, Severe (Pain Scale 7-10) Last Admin: 11/23/21 09:23 Dose: 5 mg Documented by: BRIAN Pharmacy Consult (Consult Rx Perform Med Rec) 1 each MISCELLANE ONCE PRN PRN Reason: Consult order Sodium Chloride (0.9 % Sodium Chloride Flush 3 Ml Syringe) 3 ml IVFLUSH QSHIFT [facility] Last Admin: 11/23/21 09:18 Dose: 3 ml Documented by: BRIAN Labs CBC & Chem 7: 11/22/21 13:14 11/22/21 13:15 Labs: Laboratory Results - last 24 hr 11/22/21 11/22/21 11/22/21 13:14 13:14 13:14 MCV 75.7 L MCH 23.8 L MCHC 31.4 RDW 19.5 H Plt Count 178 MPV 11.4 Immature Gran % (Auto) 2.3 H Neut % (Auto) 71.9 Lymph % (Auto) 15.4 L [place] % (Auto) 8.1 Eos % (Auto) 1.8 Baso % (Auto) 0.5 Lymph # (Auto) 1.7 [place] # (Auto) 0.9 Eos # (Auto) 0.2 Baso # (Auto) 0.1 Abs Immat Gran (auto) 0.25 H Absolute Neuts (auto) 8.0 Absolute Nucleated RBC 0.000 Nucleated RBC % (auto) 0.0 PT 17.2 H INR 1.5 H Anion Gap Estim Creat Clear Calc Estimated GFR Random Glucose Lactic Acid Calcium Magnesium Total Bilirubin Direct Bilirubin AST ALT Alkaline Phosphatase Total Protein Albumin Urine Opiates Screen Urine Fentanyl Screen Ur Barbiturates Screen Ur Phencyclidine Scrn Ur Amphetamines Screen U Benzodiazepines Scrn Urine Cocaine Screen U Marijuana (THC) Screen Ethyl Alcohol COVID-19 ([facility]) Negative COVID-19 Clin Com See Note 11/22/21 11/22/21 11/22/21 13:14 13:14 13:15 MCV MCH MCHC RDW Plt Count MPV Immature Gran % (Auto) Neut % (Auto) Lymph % (Auto) [place] % (Auto) Eos % (Auto) Baso % (Auto) Lymph # (Auto) [place] # (Auto) Eos # (Auto) Baso # (Auto) Abs Immat Gran (auto) Absolute Neuts (auto) Absolute Nucleated RBC Nucleated RBC % (auto) PT INR Anion Gap 11 L Estim Creat Clear Calc 114.2 Estimated GFR > 60 Random Glucose 58 L* Lactic Acid 1.0 Calcium 8.7 Magnesium 1.5 L Total Bilirubin 0.6 Direct Bilirubin 0.4 AST 30 D ALT 20 Alkaline Phosphatase 236 H D Total Protein 6.6 Albumin 3.1 L D Urine Opiates Screen Urine Fentanyl Screen Ur Barbiturates Screen Ur Phencyclidine Scrn Ur Amphetamines Screen U Benzodiazepines Scrn Urine Cocaine Screen U Marijuana (THC) Screen Ethyl Alcohol < 10 COVID-19 ([facility]) COVID-[employer] Com 11/22/21 13:15 MCV MCH MCHC RDW Plt Count MPV Immature Gran % (Auto) Neut % (Auto) Lymph % (Auto) [place] % (Auto) Eos % (Auto) Baso % (Auto) Lymph # (Auto) [place] # (Auto) Eos # (Auto) Baso # (Auto) Abs Immat Gran (auto) Absolute Neuts (auto) Absolute Nucleated RBC Nucleated RBC % (auto) PT INR Anion Gap Estim Creat Clear Calc Estimated GFR Random Glucose Lactic Acid Calcium Magnesium Total Bilirubin Direct Bilirubin AST ALT Alkaline Phosphatase Total Protein Albumin Urine Opiates Screen Not Detected Urine Fentanyl Screen POSITIVE H Ur Barbiturates Screen Not Detected Ur Phencyclidine Scrn Not Detected Ur Amphetamines Screen Not Detected U Benzodiazepines Scrn Not Detected Urine Cocaine Screen Not Detected U Marijuana (THC) Screen Not Detected Ethyl Alcohol COVID-19 ([facility]) COVID-19 Clin Com Microbiology Microbiology Results: Microbiology 11/22/21 12:49 Blood Culture - Final Blood - Venous Assessment and Plan (1) Endocarditis: Status: Acute (2) S/P tricuspid valve replacement: Status: Acute (3) Opioid use disorder, severe, dependence: Status: Acute (4) Tricuspid valve stenosis: Status: Acute (5) Back pain: Status: Acute Plan 31 M with PMH of IVDA, endocarditis, tricuspid valve stenosis, pulmonary embolism on Xarelto-noncompliant, history of hep C, IV drug abuse/opiate dependence, history of bacteremia, hepatic steatosis, history of tricuspid valve replacement with bioprosthetic valve,in July of 2021? admitted to [facility] for endocarditis-left AMA, interrupted antibiotic therapy has had multiple admissions to [facility],with most recent admission to the hospital from 11/04 to 11/11? patient left against medical advice, was supposed to receive 6 weeks of IV antibiotic for Streptococcus sanguinous/ Streptococcus viridans pneumonia , patient? readmitted on November 18 for sepsis related to endocarditis and pneumonia patient left hospital 1 hour ago and return back due to worsening shortness of breath and productive cough.? 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 afebrile, no evidence of recurrent sepsis ?? blood culture from 11/18 grew coagulase-negative Staph in 1/2 bottles unlikely pathogen ?? echocardiogram?11/20/21 showed? severe stenosis of prosthetic tricuspid valve with mean gradient of 14 as well as vegetation, patient recently evaluated at [facility] in June ?? 2020 and it was felt that he is at a very high risk for mortality from reoperation and additionally? due to ongoing drug use he was also at high risk for new valve infection ?? cont. IV ceftriaxone 2 g / repeat blood cultures pending, WBC improved from 30,000-11,000 #? shortness of breath with exertion ? ? x-ray shows atelectasis, cont. incentive spirometry, cough medications prn. ? #? chronic back pain? as per patient has ongoing back pain, no acute worsening, localize to? lower lumbar/ tailbone CT lumbar spine 11/09 showed no fracture or paraspinal abscess, no lower extremity weakness ? ? cont. oxycodone 5mg q6h prn for pain control # opioid use disorder ?? continue methadone as per Addiction Team #? tobacco use disorder on nicotine patch 21 mg daily and Nicorette gums for nicotine withdrawal as needed, counseling done # DVT prophylaxis with Lovenox Quality Stroke Does the patient have a stroke diagnosis?: No VTE Prior VTE?: No VTE Risk Level:: Medical - moderate - high VTE Device Contraindication: Treatment Not Indicated VTE Drug Contraindication: N/A - Med Ordered
--- NOTE | 2021-11-23 14:59 | MHC.RECOVSUP ---
Recovery Support note: This signwriter met with patient to discuss withdrawal symptoms and pain management. Patient sitting in bed watching TV in room 361-1 when this signwriter entered the room. Patient reports withdrawal symptoms, specifically body aches and chills. Denies any additional withdrawal symptoms at this time. Discussed methadone dosing. Patient reports he is not in pain and feels the medication is helping. Patient reports no concerns at this time. Discussed case with Tami Luna NP.
[2021-11-23] MEDS: cefTRIAXone sodium 2 GM in 0.9 % Sodium Chloride 50 ML IV (15:02)
[2021-11-23 16:00] VITALS: BP 124/78; PULSE 74; RESP 18; TEMP 36.7; O2SAT 95
[2021-11-23] MEDS: methADONE HCl 20 MG/2 ML ORAL.CONC 15 MG PO (19:35)
[2021-11-23] MEDS: cloNIDine HCL 0.1 MG TABLET PO (19:44)
[2021-11-23 23:33] VITALS: BP 134/82; PULSE 78; RESP 20; TEMP 36.9; O2SAT 99
[2021-11-23] MEDS: Acetaminophen 325 MG TABLET 650 MG PO (23:42)
[2021-11-24] MEDS: methADONE HCl 20 MG/2 ML ORAL.CONC 5 MG PO (06:09)
[2021-11-24] MEDS: Nicotine 21 MG PATCH.TD24 TRANSDERMA (09:07)
[2021-11-24] MEDS: methADONE HCl 20 MG/2 ML ORAL.CONC 25 MG PO (09:07)
[2021-11-24] MEDS: 0.9 % Sodium Chloride Flush 3 ML SYRINGE IVFLUSH ×2 (09:08→18:13)
--- NOTE | 2021-11-24 10:38 | P.PNIM_ITS ---
Subjective Subjective Date of Service: 11/24/21 Interval History: requesting for sleeping better, denies fever, chills, tolerating diet, no nausea, no vomiting, no other acute complaints of pain, no shortness of breath, no chest pain, no palpitations. Review of Systems Review of Systems: Yes all other systems are reviewed and are negative Physical Exam Verdana 4l Vital Signs: Verdana 4d Verdana 4d Vital Signs: Verdana 4d Verdana 4Bd Last Vital Signs Verdana 4d Clinical Immunologist New 4d Clinical Immunologist New 4d Temp 98.4 F 11/23/21 23:33 Clinical Immunologist New 4d Pulse 78 11/23/21 23:33 Clinical Immunologist New 4d Resp 20 11/23/21 23:33 BP 134/82 11/23/21 23:33 Pulse Ox 99 11/23/21 23:33 BMI result Body Mass Index 23.3 Const: Other: General: Ax O X 3, no acute distress Neck is supple Re sp:? clear to ausc ultation,? coarse breath sound,no cr ackles , no access ory muscles used C VS: S1,S2,RRR GI: soft, non tender, non distended extr emities no edema N euro:? motor gross ly intact, alert a wake answering que stions appropriate ly Psych: appropri ate affect, approp riate insight? Objective Data Active Medications Acetaminophen (Acetaminophen 325 Mg Tablet) 650 mg PO Q6H PRN PRN Reason: Pain, Mild (Pain Scale 1-3) Last Admin: 11/23/21 23:42 Dose: 650 mg Documented by: ADÁN Comments: unable to scan med or patient, scanner not working Clonidine HCl (Clonidine Hcl 0.1 Mg Tablet) 0.1 mg PO TID PRN; Protocol PRN Reason: anxiety/restlessness Last Admin: 11/23/21 19:44 Dose: 0.1 mg Documented by: COLIN Enoxaparin Sodium (Enoxaparin Sodium 40 Mg/0.4 Ml Syringe) 40 mg SUBCUT Q24H [facility] Last Admin: 11/23/21 14:58 Dose: Not Given Documented by: BRIAN Non-Admin Reason: Patient Refused Ceftriaxone Sodium 2 gm/ (Sodium Chloride) 50 mls @ 100 mls/hr IV Q24H [facility] Last Infusion: 11/23/21 17:03 Dose: 0 mls/hr Documented by: BRIAN Methadone HCl (Methadone Hcl 20 Mg/2 Ml Oral.Conc) 25 mg PO DAILY [facility] Last Admin: 11/24/21 09:07 Dose: 25 mg Documented by: BRIAN Methadone HCl (Methadone Hcl 20 Mg/2 Ml Oral.Conc) 15 mg PO DAILY@1900 [facility] Last Admin: 11/23/21 19:35 Dose: 15 mg Documented by: COLIN Methadone HCl (Methadone Hcl 20 Mg/2 Ml Oral.Conc) 5 mg PO DAILY PRN PRN Reason: Opiate Withdrawal Last Admin: 11/24/21 06:09 Dose: 5 mg Documented by: ADÁN Comments: handheld scanner not working with this PC. Second scanner. Replaced first scanner from beginning of shift. Same PC. Nicotine (Nicotine 21 Mg Patch.Td24) 21 mg TRANSDERMA DAILY [facility] Last Admin: 11/24/21 09:07 Dose: 21 mg Documented by: BRIAN Nicotine Polacrilex (Nicotine Polacrilex 2 Mg Gum) 2 mg BUCCAL Q2H PRN PRN Reason: Nicotine Cravings Ondansetron HCl (Ondansetron Hcl 4 Mg/2 Ml Vial) 4 mg IVPUSH Q8H PRN PRN Reason: Nausea and Vomiting Oxycodone HCl (Oxycodone Hcl Immed Release 5 Mg Tablet) 5 mg PO Q6H PRN PRN Reason: Pain, Severe (Pain Scale 7-10) Last Admin: 11/23/21 21:27 Dose: 5 mg Documented by: COLIN Pharmacy Consult (Consult Rx Perform Med Rec) 1 each MISCELLANE ONCE PRN PRN Reason: Consult order Sodium Chloride (0.9 % Sodium Chloride Flush 3 Ml Syringe) 3 ml IVFLUSH QSHIFT [facility] Last Admin: 11/24/21 09:08 Dose: 3 ml Documented by: BRIAN Labs CBC & Chem 7: 11/22/21 13:14 11/22/21 13:15 Microbiology Microbiology Results: Microbiology 11/22/21 16:13 Blood Culture - Preliminary Blood - Arterial No growth after 24 hours. 11/22/21 16:13 Blood Culture - Preliminary Blood - Arterial No growth after 24 hours. 11/22/21 13:14 Blood Culture - Preliminary Blood - Venous No growth after 24 hours. 11/22/21 12:49 Blood Culture - Final Blood - Venous Assessment and Plan (1) Endocarditis: Status: Acute (2) S/P tricuspid valve replacement: Status: Acute (3) Opioid use disorder, severe, dependence: Status: Acute (4) Tricuspid valve stenosis: Status: Acute (5) Back pain: Status: Acute Plan 31 M with PMH of IVDA, endocarditis, tricuspid valve stenosis, pulmonary embolism on Xarelto-noncompliant, history of hep C, IV drug abuse/opiate dependence, history of bacteremia, hepatic steatosis, history of tricuspid valve replacement with bioprosthetic valve,in July of 2021? admitted to [facility] for endocarditis-left AMA, interrupted antibiotic therapy has had multiple admissions to [facility],with most recent admission to the hospital from 11/04 to 11/11? patient left against medical advice, was supposed to receive 6 weeks of IV antibiotic for Streptococcus sanguinous/ Streptococcus viridans pneumonia , patient? readmitted on November 18 for sepsis related to endocarditis and pneumonia patient left hospital 1 hour ago and return back due to worsening shortness of breath and productive cough.? 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 afebrile, no evidence of recurrent sepsis ?? blood culture from 11/18 grew coagulase-negative Staph in 1/2 bottles unlikely pathogen, Repeat blood cultures 2/4 negative times 24 hours ?? echocardiogram?11/20/21 showed? severe stenosis of prosthetic tricuspid valve with mean gradient of 14 as well as vegetation, patient recently evaluated at [facility] in June ?? 2020 and it was felt that he is at a very high risk for mortality from reoperation and additionally? due to ongoing drug use he was also at high risk for new valve infection ?? WBC improved from 30,000-11,000, remains afebrile no other acute issues cont. IV ceftriaxone 2 g, was supposed to finish treatment on 12/14/2021, but missed 5 days of antibiotic from 11/12-11/18, now on continues IV ceftriaxone,since November 19, need 6 weeks of IV antibiotic from last negative blood cultures. #? shortness of breath with exertion ? ? x-ray shows atelectasis, cont. incentive spirometry, cough medications prn. ? #? chronic back pain? as per patient has ongoing back pain, no acute worsening, localize to? lower lumbar/ tailbone CT lumbar spine 11/09 showed no fracture or paraspinal abscess, no lower extremity weakness ? ? cont. oxycodone 5mg q6h prn for pain control # opioid use disorder ?? continue methadone as per Addiction Team #? tobacco use disorder on nicotine patch 21 mg daily and Nicorette gums for nicotine withdrawal as needed, counseling done # Insomnia likely related to being in bed all day will place on as needed m migdalia requested patient be out of bed to chair and ambulate as tolerated. # DVT prophylaxis with Lovenox Quality Stroke Does the patient have a stroke diagnosis?: No VTE Prior VTE?: No VTE Risk Level:: Medical - moderate - high VTE Device Contraindication: Treatment Not Indicated VTE Drug Contraindication: N/A - Med Ordered
[2021-11-24] MEDS: oxyCODONE HCl Immed Release 5 MG TABLET PO ×2 (13:49→19:46)
[2021-11-24] MEDS: Nicotine Polacrilex 2 MG GUM BUCCAL (13:49)
--- NOTE | 2021-11-24 14:12 | HO.ADDICTPRO ---
Subjective Subjective Date of Service: 11/24/21 Reason For Visit: infective endocarditis/ polysubstance abuse Interim History: Patient currently receiving methadone 25mg in AM and 15mg PM with one 5mg PRN dose Patient reporting split dosing has been helpful in the evenings. Feels ready to resume once daily dosing tomorrow morning. Reporting difficulty sleeping. Still c/o of left sided pleuritic pain. Withdrawal sx, well managed at this time Discussed patient's goals for treatment which at this time include completing IV antibiotics and working towards discharging to [facility] treatment facility. Reviewed coping strategies for racing thoughts, cravings and irritability as these present. Reminded patient that PRN medications are available as well. Patient requesting medication for sleep--identified mirtazipine as a medication he was on at one time. Review of Systems Acute medical concerns: Yes Medical Review of Systems: unchanged Mental Status Exam Mental Status Exam Level of Consciousness: Awake, Appropriate and Alert Mood Description: Calm and Appropriate Affect Description: Calm and Appropriate Patient Cognition Impaired: No Speech Pattern: Clear Thought Process: Goal Oriented Thought Content: positive for Goal Oriented Judgement: Fair Diagnostics Vital Signs (24Hr): Vital Signs - 24 hr 11/23/21 16:00 11/23/21 23:33 Temperature 98.1 F 98.4 F Pulse Rate 74 78 Respiratory Rate 18 20 Blood Pressure 124/78 134/82 Pulse Oximetry 95 99 BMI result Body Mass Index 23.3 Labs Results: 11/22/21 13:14 11/22/21 13:15 Labs: Laboratory Results - last 48 hr 11/22/21 11/22/21 11/22/21 13:14 13:14 13:14 WBC 11.1 H RBC 4.41 L Hgb 10.5 L Hct 33.4 L MCV 75.7 L MCH 23.8 L MCHC 31.4 RDW 19.5 H Plt Count 178 MPV 11.4 Immature Gran % (Auto) 2.3 H Neut % (Auto) 71.9 Lymph % (Auto) 15.4 L [place] % (Auto) 8.1 Eos % (Auto) 1.8 Baso % (Auto) 0.5 Lymph # (Auto) 1.7 [place] # (Auto) 0.9 Eos # (Auto) 0.2 Baso # (Auto) 0.1 Abs Immat Gran (auto) 0.25 H Absolute Neuts (auto) 8.0 Absolute Nucleated RBC 0.000 Nucleated RBC % (auto) 0.0 PT 17.2 H INR 1.5 H Sodium Potassium Chloride Carbon Dioxide Anion Gap BUN Creatinine Estim Creat Clear Calc Estimated GFR Random Glucose Lactic Acid Calcium Magnesium Total Bilirubin Direct Bilirubin AST ALT Alkaline Phosphatase Troponin I High Sens 25.5 Total Protein Albumin Ethyl Alcohol 11/22/21 11/22/21 11/22/21 13:14 13:14 13:15 WBC RBC Hgb Hct MCV MCH MCHC RDW Plt Count MPV Immature Gran % (Auto) Neut % (Auto) Lymph % (Auto) [place] % (Auto) Eos % (Auto) Baso % (Auto) Lymph # (Auto) [place] # (Auto) Eos # (Auto) Baso # (Auto) Abs Immat Gran (auto) Absolute Neuts (auto) Absolute Nucleated RBC Nucleated RBC % (auto) PT INR Sodium 138 Potassium 4.6 D Chloride 112 H Carbon Dioxide 20 L Anion Gap 11 L BUN 16 Creatinine 0.83 Estim Creat Clear Calc 114.2 Estimated GFR > 60 Random Glucose 58 L* Lactic Acid 1.0 Calcium 8.7 Magnesium 1.5 L Total Bilirubin 0.6 Direct Bilirubin 0.4 AST 30 D ALT 20 Alkaline Phosphatase 236 H D Troponin I High Sens Total Protein 6.6 Albumin 3.1 L D Ethyl Alcohol < 10 Imaging Radiology Impressions: ITS Impressions Chest X-Ray 11/22/21 13:39 IMPRESSION: Suspected atelectasis of the left lung base. No lobar consolidation. Clinical correlation recommended. Medications Medications Current Medications Acetaminophen (Acetaminophen 325 Mg Tablet) 650 mg PO Q6H PRN PRN Reason: Pain, Mild (Pain Scale 1-3) Last Admin: 11/23/21 23:42 Dose: 650 mg Documented by: Clonidine HCl (Clonidine Hcl 0.1 Mg Tablet) 0.1 mg PO TID PRN; Protocol PRN Reason: anxiety/restlessness Last Admin: 11/23/21 19:44 Dose: 0.1 mg Documented by: Enoxaparin Sodium (Enoxaparin Sodium 40 Mg/0.4 Ml Syringe) 40 mg SUBCUT Q24H [facility] Last Admin: 11/23/21 14:58 Dose: Not Given Documented by: Ceftriaxone Sodium 2 gm/ (Sodium Chloride) 50 mls @ 100 mls/hr IV Q24H [facility] Last Infusion: 11/23/21 17:03 Dose: Infused Documented by: Melatonin (Melatonin 3 Mg Tablet) 6 mg PO BEDTIME PRN PRN Reason: Insomnia Methadone HCl (Methadone Hcl 20 Mg/2 Ml Oral.Conc) 15 mg PO DAILY@1900 [facility] Last Admin: 11/23/21 19:35 Dose: 15 mg Documented by: Methadone HCl (Methadone Hcl 20 Mg/2 Ml Oral.Conc) 5 mg PO DAILY PRN PRN Reason: Opiate Withdrawal Last Admin: 11/24/21 06:09 Dose: 5 mg Documented by: Methadone HCl (Methadone Hcl 20 Mg/2 Ml Oral.Conc) 40 mg PO DAILY@0800 [facility] Nicotine (Nicotine 21 Mg Patch.Td24) 21 mg TRANSDERMA DAILY [facility] Last Admin: 11/24/21 09:07 Dose: 21 mg Documented by: Nicotine Polacrilex (Nicotine Polacrilex 2 Mg Gum) 2 mg BUCCAL Q2H PRN PRN Reason: Nicotine Cravings Last Admin: 11/24/21 13:49 Dose: 2 mg Documented by: Ondansetron HCl (Ondansetron Hcl 4 Mg/2 Ml Vial) 4 mg IVPUSH Q8H PRN PRN Reason: Nausea and Vomiting Oxycodone HCl (Oxycodone Hcl Immed Release 5 Mg Tablet) 5 mg PO Q6H PRN PRN Reason: Pain, Severe (Pain Scale 7-10) Last Admin: 11/24/21 13:49 Dose: 5 mg Documented by: Pharmacy Consult (Consult Rx Perform Med Rec) 1 each MISCELLANE ONCE PRN PRN Reason: Consult order Sodium Chloride (0.9 % Sodium Chloride Flush 3 Ml Syringe) 3 ml IVFLUSH QSHIFT [facility] Last Admin: 11/24/21 09:08 Dose: 3 ml Documented by: Allergies Allergies Allergy/AdvReac Type Severity Reaction Status Date / Time No Known Allergies Allergy Verified 11/03/21 05:31 [No Known Allergies*] Assessment & Plan Assessment & Plan (1) Opioid use disorder, severe, dependence: Status: Acute Code(s): F11.20 - Opioid dependence, uncomplicated Assessment and Plan: tonight methadone 15mg (last PM dose) tomorrow morning 40mg methadone QD --will likely titrate 5mg PRN order still in place for now mirtazipine 7.5mg QHS starting this evening discussed with attending Plan ?? I spent __50____ minutes with the patient and/or on the patient floor today, greater than?50% of which was spent counseling/coordinating care.
--- NOTE | 2021-11-24 15:27 | PC.NURSE ---
Pt upset that his milk was not heated up enough for him. Pt cursed at this nurse and requested to speak to guest service supervisor. Nursing guest service supervisor made aware and went to speak with pt. Pt assigned to a different nurse.
[2021-11-24] MEDS: cefTRIAXone sodium 2 GM in 0.9 % Sodium Chloride 50 ML IV (15:34)
[2021-11-24 15:36] VITALS: BP 119/79; PULSE 88; RESP 15; TEMP 36.6; O2SAT 96
[2021-11-24] MEDS: cloNIDine HCL 0.1 MG TABLET PO (15:46)
[2021-11-24] MEDS: methADONE HCl 20 MG/2 ML ORAL.CONC 15 MG PO (19:44)
[2021-11-24] MEDS: Mirtazapine 7.5 MG TABLET PO (19:46)
[2021-11-25] MEDS: 0.9 % Sodium Chloride Flush 3 ML SYRINGE IVFLUSH ×2 (00:13→07:58)
[2021-11-25 00:17] VITALS: RESP 18; TEMP 36.4
--- NOTE | 2021-11-25 02:41 | PC.NURSE ---
PATIENT UNHAPPY AT 0000 ROUNDS HE DOES NOT LIKE TO BE AWAKENED, HE REFUSED VITAL SIGNS PER ROUTINE BY ASSIGNED CARDIAC CATH LAB RADIOLOGY TECHNOLOGIST. THIS RN DRYWALL INSTALLER ASSIGNED TO PT, ENTERED ROOM TO ASK IF HE WOULD ALLOW BP-TEMP ETC... EXPLAINED IMPORTANCE TO AN ASSESSMENT BY THIS NURSE FOR HIS HEALTH AND WELL BEING, HOWEVER, HE ONLY WAS AGREEABLE TO A SCANNED TEMPERATURE READING. PATIENT WISHES ALLOWED AFTER ANOTHER BRIEF EXPLANATION TO HIS HEALTH AND ASKED HIM IF HE RE-CONSIDERED TO PLEASE ALERT STAFF.
[2021-11-25 07:15] VITALS: BP 126/85; PULSE 79; RESP 16; TEMP 36.9; O2SAT 99
[2021-11-25] MEDS: methADONE HCl 20 MG/2 ML ORAL.CONC 40 MG PO (07:55)
[2021-11-25] MEDS: Nicotine 21 MG PATCH.TD24 TRANSDERMA (07:56)
[2021-11-25] MEDS: oxyCODONE HCl Immed Release 5 MG TABLET PO (08:00)
--- NOTE | 2021-11-25 09:53 | P.DS_ITS ---
DS: Providers Provider Date of Service: 11/25/21 Date of admission: 11/22/21 15:03 Primary care physician: Unknown Physician DS: Diagnosis Discharge Diagnosis (1) Opioid use disorder, severe, dependence: Status: Acute DS: Summary Hospital Course Hospital Course: Chief Complaint:? 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 significant stenosis of prosthetic tricuspid valve , his chest x-ray showed bilateral infiltrate COVID was negative patient was seen by infectious disease and 6 weeks of IV antibiotics were recommended patient was also seen by addiction team and was receiving methadone? with history of IV drug abuse however patient decided to leave hospi1 hour ago, he tells that he left because he had to go to welfare office that was close and he returned back to [facility] due to recurrent shortness of breath, he denies use of IV drug, he is complaining of left lower chest discomfort with deep breathing and cough productive of yellow phlegm, he is willing to stay in the hospital to finish the course of antibiotics and also willing to go to rehab, he is requesting for pain medications for his chronic lower back pain, he denies any fever chills, no nausea, no vomiting no abdominal pain or diarrhea. chest x-ray obtained in the ED showed no infiltrate, repeat blood cultures x2? 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 severe stenosis of prosthetic tricuspid valve with mean gradient of 14 as well as vegetation, patient recently evaluated at [facility] in June of 2021 and it was felt that he is at a very high risk for mortality from reoperation and additionally?due to ongoing drug use he was also at high risk for new valve infection, patient was also seen by addiction team and placed on methadone with history of substance abuse, patient was tolerating diet with no nausea vomiting , no diarrhea no recurrent fevers today patient decided to leave hospital against medical advice patient once again inform about risk of infective emboli to lungs, brain, with overwhelming infection and patient understands the consequences of lack of treatment, still adamant to leave the hospital, arrangements have been made for outpatient methadone treatment. 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 at [facility] patient has been admitted to [facility] 7 times since March of 2021 has left against medical advice 6 times admitted on 04/15 left against medical advise April 17 admitted 07/06/21 discharged to [facility] 07/08 for evaluation of bioprosthetic valve admitted 09/11/21 left AMA admitted 10/08/21 left AMA admitted November 04 left AMA 11/12/21 admitted 11/18/21 left AMA 11/22/2021 admitted 11/22/21 left AMA 11/24/2021 Time Spent with Patient Time attestation: Total time spent providing and/or coordinating discharge services: Discharge coordination time: Greater than 30 minutes Quality: Stroke Does the patient have a stroke diagnosis?: No Physical Exam Verdana 4l Vital Signs: Verdana 4d Verdana 4d Vital Signs: Verdana 4d Verdana 4Bd Last Vital Signs Verdana 4d Fertilizer Loader New 4d Fertilizer Loader New 4d Temp 98.4 F 11/25/21 07:15 Fertilizer Loader New 4d Pulse 79 11/25/21 07:15 Fertilizer Loader New 4d Resp 16 11/25/21 07:15 BP 126/85 11/25/21 07:15 Pulse Ox 99 11/25/21 07:15 BMI result Body Mass Index 23.3 Const: Other: General: Ax O X 3, no acute distress Neck is supple Resp:? clear to auscultation,? coarse breath sound,no crackles , no accessory muscles used CVS: S1,S2,RRR GI: soft, non tender, non distended extremities no edema Neuro:? motor grossly intact, alert awake answering questions appropriately back? examination no tenderness lumbar spine. Psych: appropriate affect, appropriate insight? DS: Data Data Completed and Pending Completed studies during hospitalization [Text1]: Procedures Detoxification Services for Substance Abuse Treatment (11/03/21) Labs on day of discharge: Preliminary micro results at discharge 11/22/21 16:13 Blood Culture - Preliminary Blood - Arterial No growth after 48 hours. 11/22/21 16:13 Blood Culture - Preliminary Blood - Arterial No growth after 48 hours. 11/22/21 13:14 Blood Culture - Preliminary Blood - Venous No growth after 48 hours. Discharge Plan Discharge Patient Disposition: Left Against Medical Advice Discharge Diagnosis: bioprostatic tricuspid valve endocarditis substance abuse Referrals: Physician,Shy J [Physician] - 1 Week Discharge Medications: No Action No Known Home Meds 0RF Discharge Orders: Discharge Order (Routine); Ordered 11/25/21 Ordered By: Janeen Long Diet: advance to usual diet Activity on Discharge: As tolerated Care Plan Goals: tricuspid endocarditis, active intra venous drug abuse strongly recommend to stay for treatment, inform patient about risk of overwhelming infection sepsis and he repeated the consequences but still decided to leave Strongly recommend to abstain from drug use/ outpatient methadone treatment arranged by [facility] Concerns: tricuspid valve endocarditis and stenosis/ IV drug use Plan of Treatment: outpatient follow-up with primary care physician/return to Emergency room with any worsening symptoms of fever chills shortness of breath chest pain. Assessment: per dc summary Discharge Date/Time: 11/25/21 09:58
--- NOTE | 2021-11-25 10:19 | MHC.CM.PN ---
NURSE MACHINING SUPERVISOR NOTE CASE DISCUSSED WITH HOSPITALIST AND AND CSE MANAGEMENT CO WORKER, DESPITE HOSPITALIST TALING WITH PATIENT HE WANTS TO SIGHN OUT AMQ, DISCHARGED PATIENT SIGNED OUT AGAINST MEDICAL ADVICE AMA
== END 2021-11-25 09:58 | disposition left against medical advice (07) | DRG 206 ==
LOC: HO.ED 13:13 → HO.EDOVER 15:19 → HO.S3 18:55
PROVIDERS: Nurse Practitioner Family; Admitting Provider Hospitalist; Emergency Provider Emergency Medicine; PCP Nurse Practitioner Family; Visit Provider Hospitalist
DX: T82.6XXA Infection and inflammatory reaction due to cardiac valve prosthesis, initial encounter (principal); T82.857A Stenosis of other cardiac prosthetic devices, implants and grafts, initial encounter; F11.20 Opioid dependence, uncomplicated; I33.0 Acute and subacute infective endocarditis; G89.29 Other chronic pain; F17.210 Nicotine dependence, cigarettes, uncomplicated; Z71.6 Tobacco abuse counseling; Z20.822 Contact with and (suspected) exposure to COVID-19; Z59.02 Unsheltered homelessness; Z91.14 Patient's other noncompliance with medication regimen; Z79.01 Long term (current) use of anticoagulants
CPT/HCPCS: 36415; 71046; 80048; 80076; 80307; 82077; 83605; 83735; 84484; 85025; 85610; 87040; 87635; 93005; 96374; 99218; 99285; J0696; J1885

== ENCOUNTER 2021-12-07 12:48 | Emergency (ER) | payer MEDICAID, SELFPAY ==
[2021-12-07 12:59] VITALS: BP 130/80; PULSE 96; O2SAT 96
--- NOTE | 2021-12-07 13:01 | PC.NURSE ---
PT ARRIVED VIA EMS WITH EMS HOLDING NARCAN NEARBY PATIENT. PT WAKING UP YELLING AT EMS AND THIS RN AND PROVIDER IM AWAKE OK IM AWAKE, JUST LET ME GET MY STUFF AND GET OUT OF HERE! PT ENCOURAGED TO GET OFF STRETCHER BY SELF AND AMBULATED TO STRETCHER, PT DID DO THIS AND CONTINUED TO YELL AT STAFF JUST HURRY UP AND DO WHAT YOU GOTTA DO SO I CAN LEAVE AND GO DOWN THE STREET AND DO MORE HEROIN! PROVIDER YANDEL AT BEDSIDE. PT LEFT ELOPED BY SELF, SECURITY NEARBY FOR ASSISTANCE.
== END 2021-12-07 13:09 | disposition left against medical advice (07) ==
PROVIDERS: Emergency Provider Emergency Medicine; PCP Nurse Practitioner Family
DX: M54.9 Dorsalgia, unspecified (principal); R06.02 Shortness of breath; F11.20 Opioid dependence, uncomplicated; F19.10 Other psychoactive substance abuse, uncomplicated; F17.200 Nicotine dependence, unspecified, uncomplicated

== ENCOUNTER 2021-12-11 23:48 | Emergency (ER) | payer MEDICAID, SELFPAY ==
[2021-12-12] VITALS (8 sets, daily range): BP systolic 00–132; BP diastolic 00–94; PULSE 87–140; RESP 12–20; TEMP 37; O2SAT 96–99; BMI 22.0
--- NOTE | 2021-12-12 00:04 | ED_ITS ---
HPI - Altered Mental Status General Chief Complaint: Altered Mental Status Stated Complaint: AMS s/p substance abuse Time Seen by Provider: 12/12/21 00:02 Source: EMS Mode of arrival: EMS Limitations: altered mental status History of Present Illness HPI narrative: agitation secondary to doing drugs. Patient found in a hallway and EMS was called MD complaint: other (agitation) Onset (ago): hour(s) Severity: moderate Context: drug abuse Associated symptoms: denies other symptoms Related Data Home Medications Medication Instructions Recorded Confirmed No Known Home Meds 10/08/21 12/12/21 Allergies Allergy/AdvReac Type Severity Reaction Status Date / Time No Known Allergies Allergy Verified 11/03/21 05:31 [No Known Allergies*] Review of Systems Review of Systems: Yes Unobtainable due to mental status PMFSH Past Medical History Medical History Anasarca Bacteremia Bacteremia Endocarditis HCV (hepatitis C virus) Pulmonary embolism Right heart failure Steatosis, liver Tricuspid valve stenosis Surgical History History of tricuspid valve replacement with bioprosthetic valve Social History Social History Household Members: None Household Members Other:: none. homeless Housing: Homeless Do you presently have visiting nurse or other home services: No Unable to assess alcohol history related to: Refusing to respond Alcohol intake: never Patient Tobacco Use Status: Tobacco use Unknown Tobacco use type: Cigarette Cigarette Packs Per Day: 1 Cigarettes Per Day: 20.0 Years Smoked: 10 Second Hand Smoke Exposure: No Use of substances other than those prescribed or required for medical reasons: Yes Substance Use Type: Crack/Cocaine and Heroin Substance Use Frequency: Chronic Longstanding Substance Use Frequency Other:: 12 Last Used Substance: Hours (ago) Advance Directives: Yes Advance Directives on File: Yes Advance Directives Date on File: 04/16/21 service: No Current occupational status: unemployed Physical Exam ED Vital Signs: Vital Signs - 24 hr 12/12/21 00:00 12/12/21 00:11 12/12/21 00:26 Temperature 98.6 F Pulse Rate 140 H 131 H 116 H Respiratory Rate 20 18 17 Blood Pressure 00/00 L 132/94 H 124/75 Pulse Oximetry 99 96 97 02/24/22 00:40 12/12/21 00:55 12/12/21 02:00 Temperature Pulse Rate 118 H 124 H 106 H Respiratory Rate 18 17 13 Blood Pressure 113/80 97/55 L 110/66 Pulse Oximetry 96 99 96 12/12/21 04:00 12/12/21 05:00 Temperature Pulse Rate 92 87 Respiratory Rate 13 12 Blood Pressure 101/65 102/60 Pulse Oximetry 96 97 BMI result Body Mass Index 22.0 Course Reevaluation(s) Reevaluation #1: new ischemic looking EKG will add troponin Reevaluation #2: despite abnormal EKG troponin flat at 25 Time: 06:15 Reevaluation #3: patient waking up will dc home Time: 06:21 MDM - Altered Mental Status Lab Data Result diagrams: 12/12/21 01:05 12/12/21 01:20 Labs: Lab Results 12/12/21 12/12/21 12/12/21 Range/Units 01:05 01:05 01:20 WBC 17.4 H (4.8-10.8) X10*3/uL RBC 4.21 L (4.60-5.80) X10*6/uL Hgb 10.1 L (14.0-18.0) g/dl Hct 31.9 L (42.0-52.0) % MCV 75.8 L (80.0-98.0) fL MCH 24.0 L (27.0-33.0) pg MCHC 31.7 (31.0-36.0) g/dl RDW 18.2 H (11.0-16.0) % Plt Count 227 D (160-400) X10*3/uL MPV 11.2 (9.4-12.4) fL Immature Gran % (Auto) 0.6 H (0.0-0.4) % Neut % (Auto) 85.1 H (45-73) % Lymph % (Auto) 6.9 L (20-40) % [place] % (Auto) 6.7 (2-11) % Eos % (Auto) 0.5 (0-4) % Baso % (Auto) 0.2 (0-2) % Lymph # (Auto) 1.2 (1.2-4.9) X10*3/uL [place] # (Auto) 1.2 (0.1-1.2) X10*3/uL Eos # (Auto) 0.1 (0.0-0.4) X10*3/uL Baso # (Auto) 0.0 (0.0-0.2) X10*3/uL Abs Immat Gran (auto) 0.10 H (0.00-0.03) X10*3/uL Absolute Neuts (auto) 14.8 H (2.0-8.3) x10*3/uL Absolute Nucleated RBC 0.000 (0.0-0.012) X10*3/uL Nucleated RBC % (auto) 0.0 (0.0-0.2) /100WBC Sodium 133 L (135-145) mmol/L Potassium 3.8 (3.3-5.1) mmol/L Chloride 104 (96-108) mmol/L Carbon Dioxide 16 L (22-29) mmol/L Anion Gap 17 (12-20) BUN 14 (9-16) mg/dL Creatinine 1.07 (0.5-1.4) mg/dL Estim Creat Clear Calc 75.8 Estimated GFR > 60 Random Glucose 84 D (60-115) mg/dL Calcium 8.6 (8.4-10.2) mg/dL Total Creatine Kinase 111 D (38-174) U/L Troponin I High Sens 24.6 (<3.5-35.0) ng/L ECG Data ECG #1: Attestation: I personally reviewed and interpreted this ECG as follows: Interpretation: sinus tachycardia rate of 122, flipped ts V3-V5 new from 2/3 Discharge Plan Discharge Clinical Impression: Altered mental status, Polysubstance (including opioids) dependence with p hysiological dependence Patient Disposition: Home, Self-Care Instructions: Cocaine Abuse (ED), Cannabis Abuse (ED) Prescriptions: No Action No Known Home Meds 0RF Referrals: [facility] [Primary Care Provider] - 1 week
--- NOTE | 2021-12-12 00:06 | ECG_ITS ---
Test Reason : AMS Blood Pressure : / mmHG Vent. Rate : 122 BPM Atrial Rate : 122 BPM P-R Int : 130 ms QRS Dur : 084 ms QT Int : 340 ms P-R-T Axes : 082 085 064 degrees QTc Int : 484 ms Sinus tachycardia Possible Left atrial enlargement T wave abnormality, consider anterior ischemia Abnormal ECG When compared with ECG of 22-NOV-2021 12:50, Questionable change in QRS axis T wave inversion more evident in Anterior leads Referred By: Adrian Dempsey Electronically Signed By:VIOLET SULLIVAN
[2021-12-12] MEDS: Haloperidol Lactate 5 MG/ML VIAL 10 MG IM (00:11)
[2021-12-12] MEDS: LORazepam 2 MG/ML VIAL IM (00:11)
--- NOTE | 2021-12-12 00:11 | PC.NURSE ---
Patient arrived via EMS uncooperative and combative. Patient refusing to cooperate regarding triage or vital signs. Patient began screaming and crying as well as verbally abusive and aggresive towards staff. Medication restraint given per MD order for behavior with Haldol 10 mg IM as well as Ativan 2 mg IM. Patient currently has a sitter.
[2021-12-12 05:16] LABS: Basophils Percent Auto 0.2 % (0-2); Eosinophils Absolute Auto 0.1 X10*3/uL (0.0-0.4); Eosinophils Percent Auto 0.5 % (0-4); Hematocrit 31.9 % (42.0-52.0); Hemoglobin 10.1 g/dl (14.0-18.0); Imm Gran Pct Auto 0.6 % (0.0-0.4); Lymphocytes Absolute Auto 1.2 X10*3/uL (1.2-4.9); Lymphocytes Percent Auto 6.9 % (20-40); Mean Corpuscular HGB Conc 31.7 g/dl (31.0-36.0); Mean Corpuscular Volume 75.8 fL (80.0-98.0); Mean Platelet Volume 11.2 fL (9.4-12.4); Monocytes Absolute Auto 1.2 X10*3/uL (0.1-1.2); Monocytes Percent Auto 6.7 % (2-11); Neutrophils Absolute Auto 14.8 x10*3/uL (2.0-8.3); Neutrophils Percent Auto 85.1 % (45-73); PLT ABN DIST 1; Platelet Count 227 X10*3/uL (160-400); Red Blood Count 4.21 X10*6/uL (4.60-5.80); Red Cell Distribution Width 18.2 % (11.0-16.0); SCAN SMEAR FLAG 1; White Blood Count 17.4 X10*3/uL (4.8-10.8)
[2021-12-12 05:18] LABS: MANUAL DIFF FLAG NO
[2021-12-12 05:44] LABS: Anion Gap 17 (12-20); Blood Urea Nitrogen 14 mg/dL (9-16); Calcium 8.6 mg/dL (8.4-10.2); Carbon Dioxide 16 mmol/L (22-29); Chloride 104 mmol/L (96-108); Creatinine Clr Calc Pharmacy 75.8; Estimated Glomerular Filt Rate > 60; Glucose Random 84 mg/dL (60-115); Potassium 3.8 mmol/L (3.3-5.1); Sodium 133 mmol/L (135-145)
[2021-12-12 05:44] LABS: Troponin-I High Sensitivity 24.6 ng/L (<3.5-35.0)
--- NOTE | 2021-12-12 06:15 | ECG_ITS ---
Test Reason : ETOH Blood Pressure : / mmHG Vent. Rate : 091 BPM Atrial Rate : 091 BPM P-R Int : 140 ms QRS Dur : 088 ms QT Int : 436 ms P-R-T Axes : 072 068 027 degrees QTc Int : 536 ms Normal sinus rhythm Possible Left atrial enlargement T wave abnormality, consider anterolateral ischemia Prolonged QT Abnormal ECG When compared with ECG of 12-DEC-2021 00:43, No significant change was found Referred By: Adrian Dempsey Electronically Signed By:VIOLET SULLIVAN
[2021-12-12 06:20] LABS: Troponin-I High Sensitivity 25.2 ng/L (<3.5-35.0)
--- NOTE | 2021-12-12 06:31 | PC.NURSE ---
Patient told the health care technician to go fuck herself when she attempted to wake him for an EKG. Patient has been verbally aggressive and verbally abusive to staff most of the evening. Patient took his urinal and threw it on the floor. Patient was discharged and escorted by security out of the hospital.
== END 2021-12-12 06:37 | disposition home or self-care (01) ==
PROVIDERS: Emergency Provider Emergency Medicine
DX: R41.82 Altered mental status, unspecified (principal); R45.1 Restlessness and agitation; R45.6 Violent behavior; F19.10 Other psychoactive substance abuse, uncomplicated; F11.20 Opioid dependence, uncomplicated; B19.20 Unspecified viral hepatitis C without hepatic coma
CPT/HCPCS: 36415; 80048; 82550; 84484; 85025; 93005; 96372; 99285; J2060

== ENCOUNTER 2021-12-12 09:12 | Emergency (ER) | payer MEDICAID, SELFPAY ==
[2021-12-12 09:34] VITALS: BP 114/76; BP 96/64; PULSE 100; PULSE 104; RESP 16; TEMP 36.9; O2SAT 100; O2SAT 95; BMI 20.1
--- NOTE | 2021-12-12 09:36 | ED_ITS ---
HPI - General Adult General Chief complaint: ETOH/Substance Use Stated complaint: ETOH INTOXICATION Time Seen by Provider: 12/12/21 09:35 Source: patient and EMS Mode of arrival: EMS Limitations: no limitations History of Present Illness HPI narrative: 31 years old male known history of polysubstance abuse questionable BUN homeless, brought in by EMS after found in the street, patient was seen earlier in the emergency department with similar presentation and was released after he became sober. Related Data Home Medications Medication Instructions Recorded Confirmed No Known Home Meds 10/08/21 12/12/21 Allergies Allergy/AdvReac Type Severity Reaction Status Date / Time No Known Allergies Allergy Verified 12/12/21 09:33 [No Known Allergies*] Review of Systems Review of Systems: Yes Unobtainable due to mental status PMFSH Past Medical History Medical History Anasarca Bacteremia Bacteremia Endocarditis HCV (hepatitis C virus) Pulmonary embolism Right heart failure Steatosis, liver Tricuspid valve stenosis Surgical History History of tricuspid valve replacement with bioprosthetic valve Social History Social History Household Members: None Household Members Other:: none. homeless Housing: Homeless Do you presently have visiting nurse or other home services: No Unable to assess alcohol history related to: Refusing to respond Alcohol intake: current Alcohol intake frequency: 3 or more drinks per day Patient Tobacco Use Status: Tobacco use Unknown Tobacco use type: Cigarette Cigarette Packs Per Day: 1 Cigarettes Per Day: 20.0 Years Smoked: 10 Second Hand Smoke Exposure: No Use of substances other than those prescribed or required for medical reasons: Unknown Substance Use Type: Crack/Cocaine and Heroin Advance Directives: Yes Advance Directives on File: Yes Advance Directives Date on File: 04/16/21 service: No Current occupational status: unemployed Physical Exam ED Vital Signs: Vital Signs - 24 hr 12/12/21 09:34 12/12/21 11:50 12/12/21 15:02 Temperature 98.4 F 97.7 F Pulse Rate 100 83 Respiratory Rate 16 17 Blood Pressure 96/64 111/69 Pulse Oximetry 100 99 BMI result Body Mass Index 20.1 Vital signs have been reviewed as appeared to be correct. Blood pressure normal. Heart rate normal. Respiration rate normal. Temperature normal. Oxygen saturation normal. Appearance: Sleeping, wakes up with sternal rub, No acute distress. Head: Normal external exam. Normocephalic. Atraumatic. No Soria signs noted. No raccoon eyes noted Eyes: PERRLA. EOMI. Conjunctiva and sclera normal. Eyelids normal. ENT: TM's Normal. Pharynx normal. Uvula midline. Moist mucous membranes. No trismus noted. No drooling noted. No muffled voice noted. Neck: Normal inspection. Neck supple. FROM. No adenopathy. Thyroid Normal. No meningeal signs. No neck mass noted. CVS: Normal heart rate and rhythm. Heart sound normal. No murmurs noted. Pulses normal throughout. Respiratory: No respiratory distress. Painless inspiration. Breath sounds normal. No wheezes/rales/rhonchi noted. Chest nontender. No accessory muscle usage noted or decreased air movement noted. Abdomen: Soft and nontender. Bowel sounds normal in all 4 quadrants. No distention noted. No organomegaly noted. No visible injury noted. Back: No CVA tenderness. Full range of motion noted. Skin: Skin warm and dry. Normal skin color. Normal skin turgor. No rashes/lesions/lacerations noted. Extremities: No lower extremity edema. Extremities exhibit normal range of motion. Extremities nontender. Neuro: Cranial nerve exam: II-XII are grossly intact No motor deficit. No sensory deficit. Reflexes normal. Course Course Course Narrative: 31 years old male history of drug abuse and alcohol abuse return to the emerge ncy department (2nd visit today) after was wandering in the street, patient has been sleeping since his presentation easily arousable with sternal rubbing, unable to obtain useful history. Case signed out to Dr. Tomlinson when patient is more sober. Medical Decision Making Lab Data Result diagrams: 12/12/21 09:53 12/12/21 09:53 Labs: Lab Results 12/12/21 12/12/21 12/12/21 Range/Units 09:53 09:53 09:53 WBC 12.4 H (4.8-10.8) X10*3/uL RBC 4.68 (4.60-5.80) X10*6/uL Hgb 10.9 L (14.0-18.0) g/dl Hct 35.4 L (42.0-52.0) % MCV 75.6 L (80.0-98.0) fL MCH 23.3 L (27.0-33.0) pg MCHC 30.8 L (31.0-36.0) g/dl RDW 18.5 H (11.0-16.0) % Plt Count 202 (160-400) X10*3/uL MPV 10.6 (9.4-12.4) fL Immature Gran % (Auto) 0.5 H (0.0-0.4) % Neut % (Auto) 77.2 H (45-73) % Lymph % (Auto) 12.6 L (20-40) % [place]ccre[place] % (Auto) 8.9 (2-11) % Eos % (Auto) 0.4 (0-4) % Baso % (Auto) 0.4 (0-2) % Lymph # (Auto) 1.6 (1.2-4.9) X10*3/uL [place] # (Auto) 1.1 (0.1-1.2) X10*3/uL Eos # (Auto) 0.1 (0.0-0.4) X10*3/uL Baso # (Auto) 0.1 (0.0-0.2) X10*3/uL Abs Immat Gran (auto) 0.06 H (0.00-0.03) X10*3/uL Absolute Neuts (auto) 9.6 H (2.0-8.3) x10*3/uL Absolute Nucleated RBC 0.000 (0.0-0.012) X10*3/uL Nucleated RBC % (auto) 0.0 (0.0-0.2) /100WBC Sodium 136 (135-145) mmol/L Potassium 3.7 (3.3-5.1) mmol/L Chloride 107 (96-108) mmol/L Carbon Dioxide 19 L (22-29) mmol/L Anion Gap 14 (12-20) BUN 13 (9-16) mg/dL Creatinine 1.01 (0.5-1.4) mg/dL Estim Creat Clear Calc 91.0 Estimated GFR > 60 Random Glucose 86 (60-115) mg/dL Calcium 8.8 (8.4-10.2) mg/dL Magnesium 1.9 (1.6-2.6) mg/dL Total Bilirubin 1.5 H (0.0-1.0) mg/dL Direct Bilirubin 0.8 H (0.0-0.5) mg/dL AST 37 (5-37) U/L ALT 15 (0-40) U/L Alkaline Phosphatase 227 H (39-117) U/L Total Creatine Kinase 338 H D (38-174) U/L Troponin I High Sens 22.5 (<3.5-35.0) ng/L Total Protein 7.1 (6.5-8.0) g/dL Albumin 3.4 L (3.5-5.0) g/dL Lipase 7 L (8-78) U/L Ethyl Alcohol mg/dL 12/12/21 Range/Units 09:53 WBC (4.8-10.8) X10*3/uL RBC (4.60-5.80) X10*6/uL Hgb (14.0-18.0) g/dl Hct (42.0-52.0) % MCV (80.0-98.0) fL MCH (27.0-33.0) pg MCHC (31.0-36.0) g/dl RDW (11.0-16.0) % Plt Count (160-400) X10*3/uL MPV (9.4-12.4) fL Immature Gran % (Auto) (0.0-0.4) % Neut % (Auto) (45-73) % Lymph % (Auto) (20-40) % [place] % (Auto) (2-11) % Eos % (Auto) (0-4) % Baso % (Auto) (0-2) % Lymph # (Auto) (1.2-4.9) X10*3/uL [place] # (Auto) (0.1-1.2) X10*3/uL Eos # (Auto) (0.0-0.4) X10*3/uL Baso # (Auto) (0.0-0.2) X10*3/uL Abs Immat Gran (auto) (0.00-0.03) X10*3/uL Absolute Neuts (auto) (2.0-8.3) x10*3/uL Absolute Nucleated RBC (0.0-0.012) X10*3/uL Nucleated RBC % (auto) (0.0-0.2) /100WBC Sodium (135-145) mmol/L Potassium (3.3-5.1) mmol/L Chloride (96-108) mmol/L Carbon Dioxide (22-29) mmol/L Anion Gap (12-20) BUN (9-16) mg/dL Creatinine (0.5-1.4) mg/dL Estim Creat Clear Calc Estimated GFR Random Glucose (60-115) mg/dL Calcium (8.4-10.2) mg/dL Magnesium (1.6-2.6) mg/dL Total Bilirubin (0.0-1.0) mg/dL Direct Bilirubin (0.0-0.5) mg/dL AST (5-37) U/L ALT (0-40) U/L Alkaline Phosphatase (39-117) U/L Total Creatine Kinase (38-174) U/L Troponin I High Sens (<3.5-35.0) ng/L Total Protein (6.5-8.0) g/dL Albumin (3.5-5.0) g/dL Lipase (8-78) U/L Ethyl Alcohol < 10 mg/dL Discharge Plan Discharge Clinical Impression: Polysubstance abuse Prescriptions: No Action No Known Home Meds 0RF
[2021-12-12] MEDS: 0.9 % Sodium Chloride 1,000 ML 999 ML IV (09:56)
[2021-12-12 10:01] LABS: MANUAL DIFF FLAG NO
[2021-12-12 10:07] LABS: Basophils Absolute Auto 0.1 X10*3/uL (0.0-0.2); Basophils Percent Auto 0.4 % (0-2); Eosinophils Absolute Auto 0.1 X10*3/uL (0.0-0.4); Eosinophils Percent Auto 0.4 % (0-4); Hematocrit 35.4 % (42.0-52.0); Hemoglobin 10.9 g/dl (14.0-18.0); Imm Gran Abs Auto 0.06 X10*3/uL (0.00-0.03); Imm Gran Pct Auto 0.5 % (0.0-0.4); Lymphocytes Absolute Auto 1.6 X10*3/uL (1.2-4.9); Lymphocytes Percent Auto 12.6 % (20-40); Mean Corpuscular HGB Conc 30.8 g/dl (31.0-36.0); Mean Corpuscular Hemoglobin 23.3 pg (27.0-33.0); Mean Corpuscular Volume 75.6 fL (80.0-98.0); Mean Platelet Volume 10.6 fL (9.4-12.4); Monocytes Absolute Auto 1.1 X10*3/uL (0.1-1.2); Monocytes Percent Auto 8.9 % (2-11); Neutrophils Absolute Auto 9.6 x10*3/uL (2.0-8.3); Neutrophils Percent Auto 77.2 % (45-73); Platelet Count 202 X10*3/uL (160-400); Red Blood Count 4.68 X10*6/uL (4.60-5.80); Red Cell Distribution Width 18.5 % (11.0-16.0); White Blood Count 12.4 X10*3/uL (4.8-10.8)
[2021-12-12 10:18] LABS: Ethanol < 10 mg/dL
[2021-12-12 10:21] LABS: Alanine Aminotransferase 15 U/L (0-40); Albumin Level 3.4 g/dL (3.5-5.0); Alkaline Phosphatase 227 U/L (39-117); Anion Gap 14 (12-20); Aspartate Amino Transferase 37 U/L (5-37); Bilirubin Direct 0.8 mg/dL (0.0-0.5); Bilirubin Total 1.5 mg/dL (0.0-1.0); Blood Urea Nitrogen 13 mg/dL (9-16); Calcium 8.8 mg/dL (8.4-10.2); Carbon Dioxide 19 mmol/L (22-29); Chloride 107 mmol/L (96-108); Estimated Glomerular Filt Rate > 60; Glucose Random 86 mg/dL (60-115); Lipase 7 U/L (8-78); Potassium 3.7 mmol/L (3.3-5.1); Sodium 136 mmol/L (135-145); Total Protein 7.1 g/dL (6.5-8.0)
[2021-12-12 10:22] LABS: Troponin-I High Sensitivity 22.5 ng/L (<3.5-35.0)
--- NOTE | 2021-12-12 10:29 | PC.NURSE ---
Pt arrives via EMS from a call from the PD, found on the street stumbling, recently DC'd from this facility around 0600. Pt is lethargic, awakens to sternal rub only. Unable to assess fully at this time due to lethargy. VS as charted, IV established, labs drawn. Call pierce within reach. Awaiting further orders. Will continue to monitor.
[2021-12-12 10:35] LABS: Magnesium 1.9 mg/dL (1.6-2.6)
[2021-12-12 11:50] VITALS: RESP 17
--- NOTE | 2021-12-12 11:50 | PC.NURSE ---
patient currently sleeping, call pierce within reach, personnel monitor nsr 80s, will continue to monitor.
--- NOTE | 2021-12-12 11:51 | MHC.RECOVSUP ---
? Reason for consult:Recovery support o Current location:bed 21 o Identified substance use concern: ETOH, polysubstance - Support ? Intervention: ? Additional information:Patient with altered mental status, patient unable to cooperate with assessment.
[2021-12-12 15:02] VITALS: BP 111/69; PULSE 83; TEMP 36.5; O2SAT 99
--- NOTE | 2021-12-12 15:07 | PC.NURSE ---
pt sleeping, vss, will continue to monitor.
== END 2021-12-12 17:53 | disposition home or self-care (01) ==
PROVIDERS: Emergency Provider Emergency Medicine
DX: F19.10 Other psychoactive substance abuse, uncomplicated (principal); R53.83 Other fatigue; F10.10 Alcohol abuse, uncomplicated; Y90.0 Blood alcohol level of less than 20 mg/100 ml
CPT/HCPCS: 36415; 80048; 80076; 82077; 82550; 83690; 83735; 84484; 85025; 96360; 99284

== ENCOUNTER 2022-01-05 19:40 | Emergency (ER) | payer MEDICAID, SELFPAY ==
--- NOTE | ~2022-01-05 | XR_ITS ---
EXAMINATION: XR CHEST CLINICAL INFORMATION: Cough COMPARISON: 11/22/2021 TECHNIQUE: Frontal view of the chest was obtained. FINDINGS: Patient is rotated to the right. Orphaned epicardial pacer leads are again noted. Sternal fixation hardware. The lungs are well expanded. There is no focal consolidation, edema, or effusion. No pneumothorax. The cardiomediastinal silhouette is within normal limits. No acute osseous abnormality. XR/XR chest 1V IMPRESSION: No acute pulmonary finding.
[2022-01-05 19:43] VITALS: BP 118/74; PULSE 112; O2SAT 96
[2022-01-05 21:11] VITALS: BP 98/60; PULSE 120; RESP 20; TEMP 37; O2SAT 95; BMI 24.2
[2022-01-05 21:41] LABS: COVID-19 Test Negative (Negative)
--- NOTE | 2022-01-05 23:44 | ED_ITS ---
HPI - Psych General Chief Complaint: Upper Respiratory Symptoms Stated Complaint: Bodyaches/Cough Time Seen by Provider: 01/05/22 19:50 Source: patient Mode of arrival: EMS Limitations: no limitations History of Present Illness HPI Narrative: he is requesting detox MD complaint: substance abuse Onset (ago): year(s) Duration: constant History of same: Yes Relieving factors: other (using drugs) Exacerbating factors: none Context: other (patient tells me he is withdrawal from heroin and fentanyl) Associated psychiatric symptoms: other (body aches, diarrhea, nausea) Associated symptoms: nausea Treatments prior to arrival: none Related Data Home Medications Medication Instructions Recorded Confirmed No Known Home Meds 10/08/21 12/12/21 Allergies Allergy/AdvReac Type Severity Reaction Status Date / Time No Known Allergies Allergy Verified 01/05/22 21:17 [No Known Allergies*] Review of Systems Review of Systems: Constitutional : No Weight loss, No Fever, pos Chills, pos malaise ENT/Mouth : No sore throat, No Rhinorrhea Eyes: No Swelling, No Redness Cardiovascular : No Chest Pain, No SOB, NoEdema Respiratory : No Cough, No Sputum, No Wheezing Gastrointestinal : Positive Nausea, no Vomiting, positive Diarrhea, no abdominal Pain, No Hematochezia, No Melena Genitourinary : No Dysuria, No Urinary Frequency, No Hematuria, No Urgency Musculoskeletal : No joint pain, pos Myalgias, No Joint Swelling Skin : No Skin Lesions, No rash Neuro : No Weakness, No Numbness, No Dizziness, No Headache Psych : pos Anxiety/Panic, No Depression, no SI Heme/Lymph: No Bruising, No Lymphadenopathy Endocrine : No Polyuria, No Polydipsia All other systems reviewed and are negative. [facility] Past Medical History Attestation statement: The following information was validated with the patient. Medical History Anasarca Bacteremia Bacteremia Endocarditis HCV (hepatitis C virus) Pulmonary embolism Right heart failure Steatosis, liver Tricuspid valve stenosis Surgical History History of tricuspid valve replacement with bioprosthetic valve Social History Social History Household Members: None Household Members Other:: none. homeless Housing: Homeless Do you presently have visiting nurse or other home services: No Unable to assess alcohol history related to: Refusing to respond Alcohol intake: current Alcohol intake frequency: 3 or more drinks per day Patient Tobacco Use Status: Tobacco use Unknown Tobacco use type: Cigarette Cigarette Packs Per Day: 1 Cigarettes Per Day: 20.0 Years Smoked: 10 Second Hand Smoke Exposure: No Substance Use Type: Crack/Cocaine and Heroin Advance Directives: No Advance Directives on File: No Advance Directives Date on File: 04/16/21 service: No Current occupational status: unemployed Physical Exam Vital Signs: Vital Signs: Last Vital Signs Temp 98.0 F 01/06/22 01:02 Pulse 91 01/06/22 01:02 Resp 18 01/06/22 01:02 BP 115/63 01/06/22 01:02 Pulse Ox 95 01/06/22 01:02 BMI result Body Mass Index 24.2 Appearance: Alert. Oriented X3. Anxious rocking back and forth crying mild acute distress. Eyes: Pupils equal, round and reactive to light. ENT: Pharynx normal. Neck: Normal inspection. Neck supple. CVS: tachycardic heart rate and rhythm. Pulses normal. Respiratory: No respiratory distress. Breath sounds normal. Abdomen: Soft and nontender. Skin: Skin warm and dry. Normal skin color. Normal skin turgor. Extremities: No lower extremity edema. not fully allowing exam won't take sweatshirt off Neuro: Oriented X 3. No motor deficit. No sensory deficit. Course Course Course Narrative: no vomiting, no fevers per his reports and denies CP/SOB patient now more sleepy per RN - resting no agitation, asleep in bed will hold ativan Physician observation started at 144am. Patient placed in physician observation because the patient needed more time for CARE team to assess the need for detox/substance abuse. At the time observation was started the patient's vitals were stable, patient is asleep, Neuro: nonfocal, CV RRR, Lungs clear. HR improved to 91 MDM - Psych MDM Narrative Medical decision making narrative: 31 yo male with hx of sig substance abuse here giving me a limited history other than wanting detox for opiates - he wont state when he last used, he denies SI. Reports body aches, diarrhea, nausea - will offer ativan and zofran and allow him to talk to recovery coaches in the AM. He denies any other complaints though he is not forthcoming with me. Lab Data Labs: Lab Results 01/05/22 Range/Units 21:14 COVID-19 ([facility]) Negative (Negative) COVID-19 Clin Com See Note Discharge Plan Discharge Clinical Impression: Opioid use disorder, severe, dependence Patient Disposition: Still a Patient Prescriptions: No Action No Known Home Meds 0RF
[2022-01-06 01:02] VITALS: BP 115/63; PULSE 91; RESP 18; TEMP 36.7; O2SAT 95
[2022-01-06] MEDS: Ondansetron ODT 4 MG TAB.RAPDIS TRANSLINGU (01:04)
--- NOTE | 2022-01-06 01:05 | PC.NURSE ---
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 Belonging in . Will continue to monitor.
--- NOTE | 2022-01-06 01:48 | MHC.CARE ---
CARE team consult received for pt who is seeking detox for fentanyl/opiates. CARE/Recovery team will follow up with pt on 1st shift.
[2022-01-06 03:02] VITALS: O2SAT 98
--- NOTE | 2022-01-06 03:03 | PC.NURSE ---
pt sleeping with no sign of distress
[2022-01-06 03:06] VITALS: BP 108/66; PULSE 67; RESP 16; TEMP 36.3; O2SAT 98
--- NOTE | 2022-01-06 04:26 | PC.NURSE ---
Pt provided with food/drink per request.
[2022-01-06 04:49] LABS: Amphetamine Screen Urine Not Detected (Not Detect); Barbiturates, Urine Not Detected (Not Detect); Benzodiazepines Screen Urine Not Detected (Not Detect); Cannabinoid Screen Urine Not Detected (Not Detect); Cocaine Screen Urine POSITIVE (Not Detect); Fentanyl, urine POSITIVE (Not Detect); Opiate Screen Urine POSITIVE (Not Detect); Phencyclidine Screen Urine Not Detected (Not Detect)
[2022-01-06 04:51] VITALS: RESP 16
--- NOTE | 2022-01-06 04:52 | PC.NURSE ---
pt demanding to leave, pt given belongs and changed. Reviewed discharge instructions. pt refusing discharge paper work and signature. Provider is aware.
== END 2022-01-06 04:54 | disposition home or self-care (01) ==
PROVIDERS: Emergency Provider Emergency Medicine
DX: F11.29 Opioid dependence with unspecified opioid-induced disorder (principal); F14.10 Cocaine abuse, uncomplicated; M79.10 Myalgia, unspecified site; R05.9 Cough, unspecified; F17.210 Nicotine dependence, cigarettes, uncomplicated; Z71.6 Tobacco abuse counseling; Z20.822 Contact with and (suspected) exposure to COVID-19; Z79.899 Other long term (current) drug therapy; Z71.9 Counseling, unspecified
CPT/HCPCS: 71045; 80307; 87635; 99284

== ENCOUNTER 2022-06-25 06:56 | Emergency (ER) | payer MEDICAID, SELFPAY ==
--- NOTE | ~2022-06-25 | CT_ITS ---
EXAMINATION: CT LUMBAR SPINE CLINICAL INFORMATION: 30-year-old male with history of intravenous drug use and back pain. History of endocarditis. COMPARISON: CT of lumbar spine from 11/09/2021. Abdomen CT from 10/15/2021. TECHNIQUE: Multidetector CT imaging examination of the lumbar spine is performed with intravenous administration of 85 mL Omnipaque 350. This CT examination was performed using dose optimization techniques as appropriate, variously including the following: *Automated exposure control *Adjustment of mA and/or kV according to patient size (this includes techniques or standardized protocols for targeted exams where dose is matched to indication/reason for exam; i.e. extremities or head) *Use of iterative reconstruction technique DLP: 382 mGy-cm FINDINGS: No acute findings compared to 11/09/2021. There are 5 segmented vertebra of the lumbar spine. The vertebral body heights and alignment are well-preserved. No compression fractures. No lytic or osteoblastic lesion. The vertebral endplates have normal, smooth contour. No endplate erosions. No imaging findings of discitis or osteomyelitis. The facet joints remain intact. No evidence of epidural or paraspinal fluid collection. There are no findings of any significant spinal canal or neural foraminal stenosis. No focal disc herniations are seen. There are old erosions at both sacroiliac joints which exhibit irregular joint space narrowing along with regions of iliac sided subarticular sclerosis. These are nonspecific findings which could be sequela of prior infectious or noninfectious inflammation. Again noted is slightly heterogeneous attenuation of the chronically enlarged liver. The chronically enlarged spleen is partially included in the [id number]. There is chronic or recurrent edema within visualized subcutaneous tissues without focal organized fluid collection. No soft tissue abscess. CT/CT lumbar spine w IV con IMPRESSION: * No acute abnormalities in the lumbosacral spine compared to 11/09/2021. * No evidence of lumbar compression fracture, discitis, osteomyelitis or abscess. * There are old erosions and subarticular sclerosis at the sacroiliac joints. Findings are compatible with sequela of either infectious or noninfectious sacroiliitis. No new pathology at these joints. * Chronic hepatosplenomegaly.
[2022-06-25 07:02] VITALS: BP 128/82; BP 129/93; PULSE 89; PULSE 90; RESP 18; TEMP 36.7; O2SAT 96; O2SAT 98; BMI 21.4
--- NOTE | 2022-06-25 08:04 | ECG_ITS ---
Test Reason : od Blood Pressure : / mmHG Vent. Rate : 087 BPM Atrial Rate : 087 BPM P-R Int : 136 ms QRS Dur : 084 ms QT Int : 412 ms P-R-T Axes : 080 078 061 degrees QTc Int : 495 ms Normal sinus rhythm T wave abnormality, consider anterior ischemia Prolonged QT Abnormal ECG When compared with ECG of 12-DEC-2021 10:00, T wave inversion no longer evident in Lateral leads Referred By: Carlos Malone Electronically Signed By:FAVIOLA PATRICIA
--- NOTE | 2022-06-25 08:28 | ED_ITS ---
HPI - Back Pain/Injury General Chief Complaint: Back Pain/Injury Stated Complaint: pain Time Seen by Provider: 06/25/22 08:02 Source: patient Mode of arrival: EMS Limitations: no limitations History of Present Illness HPI Narrative: 31-year-old male who presents emergency department for evaluation of lower back pain. The patient has a history of injection intranasal heroin use. He states he did use heroin prior to coming to the emergency department. He states he has been having lower back pain since yesterday. States the pain came on suddenly, he describes the pain is a sharp, constant pain. He denied numbness or weakness, loss of bowel or bladder control. States he has had similar back pain in the past. He denied fever he states he does have chills. The patient does have a history of endocarditis and had a heart valve replacement at [facility] approximately 1 year prior-I. Patient was hospitalized in October of 2021 back pain and continuation of his endocarditis treatment since he had left [facility] facility against medical advice. At that time he did have CT scan of the lumbar spine to rule out paraspinal abscess, patient has orphaned pacemaker wires and was unable to get an MRI. MD elicited complaint: back pain Pertinent past history: prior back pain Onset (ago): day(s) (2) Timing: constant Severity: severe Pain scale (0-10): 10 Similar Symptoms Previously: Yes Quality: sharp Location: lumbar spine Radiation: none Exacerbating factors: movement Relieving factors: none Context: IV drug use Associated symptoms: chills Work related injury: No Related Data Previous Rx's Medication Instructions Recorded acetaminophen 500 mg tablet 1,000 mg PO Q6H PRN fever or pain 06/25/22 (Tylenol Extra Strength) #20 tabs cyclobenzaprine 10 mg tablet 10 mg PO TID PRN pain, muscle 06/25/22 spasm #15 tabs ibuprofen 600 mg tablet 600 mg PO Q6H PRN pain #30 tabs 06/25/22 Allergies Allergy/AdvReac Type Severity Reaction Status Date / Time No Known Allergies Allergy Verified 06/25/22 07:02 [No Known Allergies*] Review of Systems Review of Systems: Yes all other systems are reviewed and are negative PMFSH Past Medical History Medical History Anasarca Bacteremia Bacteremia Endocarditis HCV (hepatitis C virus) Pulmonary embolism Right heart failure Steatosis, liver Tricuspid valve stenosis Surgical History History of tricuspid valve replacement with bioprosthetic valve Social History Social History Household Members: None Household Members Other:: none. homeless Housing: Homeless Do you presently have visiting nurse or other home services: No Unable to assess alcohol history related to: Refusing to respond Alcohol intake: current Alcohol intake frequency: 3 or more drinks per day Patient Tobacco Use Status: Tobacco use Unknown Tobacco use type: Cigarette Cigarette Packs Per Day: 1 Cigarettes Per Day: 20.0 Years Smoked: 10 Second Hand Smoke Exposure: No Use of substances other than those prescribed or required for medical reasons: Yes Substance Use Type: Heroin Advance Directives: No Advance Directives Information Provided: No Advance Directives Date on File: 04/16/21 service: No Current occupational status: unemployed Physical Exam Vital Signs: Vital Signs: Last Vital Signs Temp 98.1 F 06/25/22 07:02 Pulse 75 06/25/22 10:04 Resp 15 06/25/22 10:04 BP 100/68 06/25/22 10:04 Pulse Ox 98 06/25/22 10:04 O2 Del Method 06/25/22 10:04 BMI result Body Mass Index 21.4 Const: Other: Somnolent but arousable, pinpoint , does answer questions but falls back asleep when not stimulated. Orientation/consciousness: oriented to person HEENT: Head: Yes normal to inspection, Yes normocephalic and Yes atraumatic Ears: external ears normal General nose exam: Normal external nose present Face and sinus: Yes normal facial exam Mouth: Normal oral and palatal mucosa present Throat: Yes posterior oropharynx normal Eyes: General: appearance normal, both eyes and all related structures Pupils: Equal, round and reactive pupils present Neck: Neck: Yes normal visual inspection, Yes no lymphadenopathy, Yes trachea midline and Yes supple Chest: Other: Left chest wall foreign body ( orphaned pacemaker wires seen on previous x- rays), midline chest scar consistent with valve replaced Chest palpation & inspection: normal inspection of the chest Resp: Effort & Inspection: normal respiratory effort and able to speak in complete sentences Auscultation: clear to auscultation bilaterally Cardio: Rate: regular rate Rhythm: regular rhythm Heart sounds: S1 normal heart sound present, S2 normal heart sound present and no murmurs GI: Inspection: Yes normal to inspection Palpation (GI): Soft to palpation, nontender and no guarding Auscultation: normal bowel sounds : General: Yes no CVA tenderness Back/Spine/Pelvis: Other: Bilateral paraspinal muscle tenderness with no spasm Back: no CVA tenderness Skin: General skin exam: no rashes or lesions noted Neuro: General: oriented to person Cranial nerves: Yes CN's II-XII intact bilaterally and Yes Equal, round and reactive pupils present Cognition (Neuro): abnormal cognition (Somnolent but arouses) Motor exam (neuro): 5/5 motor strength present throughout Extrem: General: Yes normal to inspection Psych: Appearance: well kempt Mental Status: mental status grossly normal Speech and movement: Normal speech and movement present Affect: Other affect and mood findings present (Somnolent) Attitude: cooperative Course Course Course Narrative: 31-year-old male with a history injection in intranasal heroin use, endocarditis, Bactrim, bio tricuspid valve replaced, PE who presents emergency department for evaluation of 2 days of lower back pain. The patient continues to use injection heroin. The patient was somnolent but arousable and he does admit to using heroin prior to coming to the emergency department. The patient has a normal respiratory rate his O2 saturation is normal at this time therefore he was not given Narcan to reverse as heroin but we will monitor closely. Given his history of injection drug use and his back pain I did order laboratory evaluation to include CBC, CMP, lactate, PT/INR , PTT, CPK, CRP, ESR, D-dimer, urine drug screen, alcohol level. Patient was ordered to get Toradol 30 mg IV and normal saline x1 L. I will obtain a CT scan of the patient's lumbar spine with and without contrast to rule out paraspinal abscess. Patient cannot get an MRI secondary to orphaned pacemaker wires. 1328: Laboratory evaluation: WBC elevated 16,900, 69 neutrophils, 19 lymphocytes. INR elevated 1.8. CO2 low 21. Alk-phos elevated 311. CRP elevated 6.3. ESR elevated 22. ETOH less than 10. COVID-19 negative. Radiology evaluation: CT scan the lumbar spine with IV contrast radiology reading: IMPRESSION: * No acute abnormalities in the lumbosacral spine compared to 11/09/2021. * No evidence of lumbar compression fracture, discitis, osteomyelitis or abscess. * There are old erosions and subarticular sclerosis at the sacroiliac joints. Findings are compatible with sequela of either infectious or noninfectious sacroiliitis. No new pathology at these joints. * Chronic hepatosplenomegaly. Dictated By:Tuan Paz MD At this time, I do not think that the patient has a paraspinal abscess however patient is at increased risk for infection due to his injection drug use. The patient is feeling better after receiving IV Toradol. The patient will be discharged home with a prescription for Tylenol, ibuprofen and Flexeril for his back pain. He is not interested at this time getting into a detox program. He will be sent home with a intranasal Narcan dispense pack He was given printed and verbal instructions. MDM - Back Pain/Injury Lab Data Result diagrams: 06/25/22 09:02 06/25/22 09:03 Labs: Lab Results 06/25/22 06/25/22 06/25/22 Range/Units 08:50 09:02 09:02 WBC 16.9 H (4.8-10.8) X10*3/uL RBC 4.27 L (4.60-5.80) X10*6/uL Hgb 10.9 L (14.0-18.0) g/dl Hct 33.2 L (42.0-52.0) % MCV 77.8 L (80.0-98.0) fL MCH 25.5 L (27.0-33.0) pg MCHC 32.8 (31.0-36.0) g/dl RDW 17.6 H (11.0-16.0) % Plt Count 213 (160-400) X10*3/uL MPV 10.6 (9.4-12.4) fL Immature Gran % (Auto) 0.6 H (0.0-0.4) % Neut % (Auto) 69.3 (45-73) % Lymph % (Auto) 19.4 L (20-40) % Door % (Auto) 9.5 (2-11) % Eos % (Auto) 1.0 (0-4) % Baso % (Auto) 0.2 (0-2) % Lymph # (Auto) 3.3 (1.2-4.9) X10*3/uL Door # (Auto) 1.6 H (0.1-1.2) X10*3/uL Eos # (Auto) 0.2 (0.0-0.4) X10*3/uL Baso # (Auto) 0.0 (0.0-0.2) X10*3/uL Abs Immat Gran (auto) 0.11 H (0.00-0.03) X10*3/uL Absolute Neuts (auto) 11.7 H (2.0-8.3) x10*3/uL Absolute Nucleated RBC 0.000 (0.0-0.012) X10*3/uL Nucleated RBC % (auto) 0.0 (0.0-0.2) /100WBC Smear Tech's Comments VERIFIED ESR (0-15) MM/HR PT 20.7 H (10.0-13.1) SEC INR 1.8 H (0.9-1.1) APTT 39.3 H (26.0-36.4) SEC D-Dimer High Sensitivty 325 NG/ML Sodium (135-145) mmol/L Potassium (3.3-5.1) mmol/L Chloride (96-108) mmol/L Carbon Dioxide (22-29) mmol/L Anion Gap (12-20) BUN (9-16) mg/dL Creatinine (0.5-1.4) mg/dL Estim Creat Clear Calc Estimated GFR Random Glucose (60-115) mg/dL Lactic Acid (0.5-2.0) mmol/L Calcium (8.4-10.2) mg/dL Total Bilirubin (0.0-1.0) mg/dL AST (5-37) U/L ALT (0-40) U/L Alkaline Phosphatase (39-117) U/L Total Creatine Kinase (38-174) U/L C-Reactive Protein (< or = 0.50) mg/dL Total Protein (6.5-8.0) g/dL Albumin (3.5-5.0) g/dL Lipase (8-78) U/L Ethyl Alcohol mg/dL COVID-19 ([facility]) Negative (Negative) COVID-19 Clin Com See Note 06/25/22 06/25/22 06/25/22 Range/Units 09:03 09:03 09:03 WBC (4.8-10.8) X10*3/uL RBC (4.60-5.80) X10*6/uL Hgb (14.0-18.0) g/dl Hct (42.0-52.0) % MCV (80.0-98.0) fL MCH (27.0-33.0) pg MCHC (31.0-36.0) g/dl RDW (11.0-16.0) % Plt Count (160-400) X10*3/uL MPV (9.4-12.4) fL Immature Gran % (Auto) (0.0-0.4) % Neut % (Auto) (45-73) % Lymph % (Auto) (20-40) % Door % (Auto) (2-11) % Eos % (Auto) (0-4) % Baso % (Auto) (0-2) % Lymph # (Auto) (1.2-4.9) X10*3/uL Door # (Auto) (0.1-1.2) X10*3/uL Eos # (Auto) (0.0-0.4) X10*3/uL Baso # (Auto) (0.0-0.2) X10*3/uL Abs Immat Gran (auto) (0.00-0.03) X10*3/uL Absolute Neuts (auto) (2.0-8.3) x10*3/uL Absolute Nucleated RBC (0.0-0.012) X10*3/uL Nucleated RBC % (auto) (0.0-0.2) /100WBC Smear Tech's Comments ESR 22 H (0-15) MM/HR PT (10.0-13.1) SEC INR (0.9-1.1) APTT (26.0-36.4) SEC D-Dimer High Sensitivty NG/ML Sodium 136 (135-145) mmol/L Potassium 3.9 (3.3-5.1) mmol/L Chloride 106 (96-108) mmol/L Carbon Dioxide 21 L (22-29) mmol/L Anion Gap 13 (12-20) BUN 14 (9-16) mg/dL Creatinine 0.75 (0.5-1.4) mg/dL Estim Creat Clear Calc 130.5 Estimated GFR > 60 Random Glucose 85 (60-115) mg/dL Lactic Acid 0.8 (0.5-2.0) mmol/L Calcium 8.2 L D (8.4-10.2) mg/dL Total Bilirubin 1.6 H (0.0-1.0) mg/dL AST 22 D (5-37) U/L ALT 16 (0-40) U/L Alkaline Phosphatase 311 H D (39-117) U/L Total Creatine Kinase 50 D (38-174) U/L C-Reactive Protein 6.30 H (< or = 0.50) mg/dL Total Protein 6.8 (6.5-8.0) g/dL Albumin 3.0 L (3.5-5.0) g/dL Lipase 8 (8-78) U/L Ethyl Alcohol < 10 mg/dL COVID-19 ([facility]) (Negative) COVID-19 Clin Com Discharge Plan Discharge Clinical Impression: Opiate use Back pain Qualifiers: Back pain location: low back pain Patient Disposition: Home, Self-Care Instructions: Back Pain (ED), Opioid Use Disorder (ED) Additional Instructions: The CT scan of your lower back did not reveal any significant bony abnormalities and there is no evidence at this time of an abscess or collection of pus around the spine (paraspinal abscess). Take ibuprofen 600 mg pills, 1 pills every 6 hours as needed for pain. Take Tylenol (acetaminophen) 500 mg pills, 2 pills every 4 to 6 hours as needed for pain. Take Flexeril (cyclobenzaprine) 10 mg pills, 1 pill every 6-8 hours as needed for pain or spasm. This medication will make you sleepy. Do not drive or work while taking this medication. Follow-up with your doctor in 2 days. Please return to the emergency department if your symptoms get worse or if you develop any symptoms that are concerning to you. Your are being discharged home with intranasal Narcan. If you are going to continue to use heroin, you should make sure that there is a sober person with you that is not using drugs and that this person can administer intranasal Narcan in the event that you stop breathing. Prescriptions: New acetaminophen [Tylenol Extra Strength] 500 mg tablet 1,000 mg PO Q6H PRN (Reason: fever or pain) Qty: 20 0RF ibuprofen 600 mg tablet 600 mg PO Q6H PRN (Reason: pain) Qty: 30 0RF cyclobenzaprine 10 mg tablet 10 mg PO TID PRN (Reason: pain, muscle spasm) Qty: 15 0RF
[2022-06-25] MEDS: 0.9 % Sodium Chloride 1,000 ML 999 ML IV (08:43)
[2022-06-25] MEDS: Ketorolac Tromethamine 15 MG/ML VIAL 30 MG IVPUSH (08:54)
--- NOTE | 2022-06-25 09:11 | PC.NURSE ---
Pt comes in with complaints of back pain, chronic in nature, pt has a known HX of IVDA with endocarditis, per pt placed on monitor, NSR in the 80's at this time, pinpoint pupils, pt will awaken to name and touch, refusing narcan at this time. Pt IV established, medicated as per [facility] orders. Call pierce within reach. Will continue to monitor .
[2022-06-25 09:14] LABS: COVID-19 Test Negative (Negative)
[2022-06-25 09:15] LABS: Basophils Percent Auto 0.2 % (0-2); Eosinophils Absolute Auto 0.2 X10*3/uL (0.0-0.4); Hematocrit 33.2 % (42.0-52.0); Hemoglobin 10.9 g/dl (14.0-18.0); Imm Gran Abs Auto 0.11 X10*3/uL (0.00-0.03); Imm Gran Pct Auto 0.6 % (0.0-0.4); Lymphocytes Absolute Auto 3.3 X10*3/uL (1.2-4.9); Lymphocytes Percent Auto 19.4 % (20-40); MANUAL DIFF FLAG SCAN; Mean Corpuscular HGB Conc 32.8 g/dl (31.0-36.0); Mean Corpuscular Hemoglobin 25.5 pg (27.0-33.0); Mean Corpuscular Volume 77.8 fL (80.0-98.0); Mean Platelet Volume 10.6 fL (9.4-12.4); Monocytes Absolute Auto 1.6 X10*3/uL (0.1-1.2); Monocytes Percent Auto 9.5 % (2-11); Neutrophils Absolute Auto 11.7 x10*3/uL (2.0-8.3); Neutrophils Percent Auto 69.3 % (45-73); Platelet Count 213 X10*3/uL (160-400); Red Blood Count 4.27 X10*6/uL (4.60-5.80); Red Cell Distribution Width 17.6 % (11.0-16.0); SCAN SMEAR FLAG 1; White Blood Count 16.9 X10*3/uL (4.8-10.8)
[2022-06-25 09:24] LABS: INTERNATIONAL NORM RATIO 1.8 (0.9-1.1); Prothrombin Time 20.7 SEC (10.0-13.1)
[2022-06-25 09:24] LABS: Lactic Acid 0.8 mmol/L (0.5-2.0)
[2022-06-25 09:26] LABS: D Dimer High Sensitivity 325 NG/ML
[2022-06-25 09:27] LABS: Partial Thromboplastin Time 39.3 SEC (26.0-36.4)
[2022-06-25 09:33] LABS: Alanine Aminotransferase 16 U/L (0-40); Alkaline Phosphatase 311 U/L (39-117); Anion Gap 13 (12-20); Aspartate Amino Transferase 22 U/L (5-37); Bilirubin Total 1.6 mg/dL (0.0-1.0); Blood Urea Nitrogen 14 mg/dL (9-16); Calcium 8.2 mg/dL (8.4-10.2); Carbon Dioxide 21 mmol/L (22-29); Chloride 106 mmol/L (96-108); Creatinine Clr Calc Pharmacy 130.5; Estimated Glomerular Filt Rate > 60; Ethanol < 10 mg/dL; Glucose Random 85 mg/dL (60-115); Lipase 8 U/L (8-78); Potassium 3.9 mmol/L (3.3-5.1); Sodium 136 mmol/L (135-145); Total Protein 6.8 g/dL (6.5-8.0)
[2022-06-25 09:38] LABS: SLIDE REVIEW VERIFIED
[2022-06-25 10:04] VITALS: BP 100/68; PULSE 75; RESP 15; O2SAT 98
[2022-06-25 10:11] LABS: Erythrocyte Sedimentation Rate 22 MM/HR (0-15)
== END 2022-06-25 15:48 | disposition home or self-care (01) ==
PROVIDERS: Emergency Provider Emergency Medicine Emergency Medical Services
DX: M54.50 Low back pain, unspecified (principal); Z20.822 Contact with and (suspected) exposure to COVID-19; F19.10 Other psychoactive substance abuse, uncomplicated; F11.20 Opioid dependence, uncomplicated; F17.210 Nicotine dependence, cigarettes, uncomplicated; Z95.4 Presence of other heart-valve replacement
CPT/HCPCS: 72132; 80053; 82077; 82550; 83605; 83690; 85025; 85379; 85610; 85652; 85730; 86140; 87040; 87635; 93005; 96361; 96374; 99284; 99285; J1885

== ENCOUNTER 2022-07-21 00:52 | Emergency (ER) | payer MEDICAID, SELFPAY ==
--- NOTE | ~2022-07-21 | XR_ITS ---
EXAMINATION: XR CHEST CLINICAL INFORMATION: Chest pain COMPARISON: 01/06/2022 TECHNIQUE: Frontal view of the chest was obtained. FINDINGS: Median sternotomy and sternal fixation hardware. Abandoned epicardial pacer wires. Bilateral patchy airspace opacities. Trace left pleural effusion. Normal heart size and pulmonary vascularity. No acute or suspicious osseous abnormalities. XR/XR chest 1V IMPRESSION: Bilateral patchy airspace opacities suspicious for multifocal pneumonia/pneumonitis.
[2022-07-21 00:48] VITALS: BP 134/64; PULSE 113; O2SAT 100
--- NOTE | 2022-07-21 01:15 | ECG_ITS ---
Test Reason : CP Blood Pressure : / mmHG Vent. Rate : 109 BPM Atrial Rate : 109 BPM P-R Int : 138 ms QRS Dur : 082 ms QT Int : 350 ms P-R-T Axes : 070 045 026 degrees QTc Int : 471 ms Sinus tachycardia Nonspecific T wave abnormality Abnormal ECG When compared with ECG of 25-JUN-2022 08:25, Nonspecific T wave abnormality now evident in Inferior leads T wave inversion less evident in Anterior leads Referred By: Neva Araiza Electronically Signed By:FAVIOLA PATRICIA
--- NOTE | 2022-07-21 01:24 | PC.NURSE ---
used needle with blood found in pt room when his belonging where picked up from the floor a used needle was found, pt states he did inject today. providers also made aware.
--- NOTE | 2022-07-21 01:53 | PC.NURSE ---
unable to complete triage due to pt not cooperative at this time. provider in the room attempting iv placement and labs.
--- NOTE | 2022-07-21 02:07 | ED.GENADULT ---
HPI - General Adult General Chief complaint: General Medical Stated complaint: CP/Drug Use Time Seen by Provider: 07/21/22 00:56 Source: patient, EMS and old records reviewed Mode of arrival: EMS Limitations: no limitations History of Present Illness HPI narrative: 31-year-old male homeless history of IV cocaine/heroin drug abuser, as a result patient had a history of recurrent endocarditis, tricuspid valve replacement, hepatitis-C, history of pulmonary embolism/septic emboli patient noncompliant with Xarelto, and grew organism in his blood multiple times. patient was hospitalized at [facility] on 07/16 for hypotension and 2/2 GBS bacteremia patient require initially pressor support, patient found also to have PE/septic emboli to the lung and spleen, and Luis and signed against medical advise patient admitted to using IV heroin and cocaine whole day in the street. Patient had a history of multiple AMA with interruption of antibiotic therapy. Related Data Previous Rx's Medication Instructions Recorded acetaminophen 500 mg tablet 1,000 mg PO Q6H PRN fever or pain 06/25/22 (Tylenol Extra Strength) #20 tabs cyclobenzaprine 10 mg tablet 10 mg PO TID PRN pain, muscle 06/25/22 spasm #15 tabs ibuprofen 600 mg tablet 600 mg PO Q6H PRN pain #30 tabs 06/25/22 Allergies Allergy/AdvReac Type Severity Reaction Status Date / Time No Known Allergies Allergy Verified 06/25/22 07:02 [No Known Allergies*] Review of Systems Review of Systems: All other systems are reviewed and are negative Constitutional: Reports as per HPI and Reports no additional constitutional complaints Eyes: Reports as per HPI and Reports no additional eye complaints Reports system reviewed and no additional complaints, except as documented Cardiovascular: Reports as per HPI and Reports no additional cardiovascular complaints Respiratory: Reports as per HPI and Reports no additional respiratory complaints Gastrointestinal: Reports as per HPI and Reports no additional gastrointestinal complaints Genitourinary: Reports no additional female genitourinary complaints Musculoskeletal: Reports no additional musculoskeletal complaints Skin/Breast: Reports system reviewed and no additional complaints, except as docu Psychiatric: Reports no additional psychiatric complaints Endocrine: Reports no additional endocrine complaints Hematologic/Lymphatic: Reports no additional hematologic/lymphatic complaints Allergic/Immunologic: Reports no additional allergic/immunologic complaints Reports system reviewed and no additional complaints, except as documented and Reports Abnormal speech present [facility] Past Medical History Medical History Anasarca Bacteremia Bacteremia Endocarditis HCV (hepatitis C virus) Pulmonary embolism Right heart failure Steatosis, liver Tricuspid valve stenosis Surgical History History of tricuspid valve replacement with bioprosthetic valve Social History Social History Household Members: None Household Members Other:: none. homeless Housing: Homeless Do you presently have visiting nurse or other home services: No Unable to assess alcohol history related to: Refusing to respond Alcohol intake: current Alcohol intake frequency: 3 or more drinks per day Patient Tobacco Use Status: Tobacco use Unknown Tobacco use type: Cigarette Cigarette Packs Per Day: 1 Cigarettes Per Day: 20.0 Years Smoked: 10 Second Hand Smoke Exposure: No Substance Use Type: Heroin Advance Directives: No Advance Directives Date on File: 04/16/21 service: No Current occupational status: unemployed Physical Exam ED Vital Signs: Vital Signs - 24 hr 07/21/22 02:15 Temperature 98.9 F Pulse Rate 109 H Respiratory Rate 20 Blood Pressure 106/69 Pulse Oximetry 90 L Oxygen Delivery Method Room Air BMI result Body Mass Index 20.2 Vital signs have been reviewed as appeared to be correct. Blood pressure normal. Heart rate elevated. Respiration rate normal. Temperature normal. Oxygen saturation normal. Appearance: Alert. Oriented X3. No acute distress. Head: Normal external exam. Normocephalic. Atraumatic. No Soria signs noted. No raccoon eyes noted Eyes: PERRLA. EOMI. Conjunctiva and sclera normal. Eyelids normal. ENT: TM's Normal. Pharynx normal. Uvula midline. Moist mucous membranes. No trismus noted. No drooling noted. No muffled voice noted. Neck: Normal inspection. Neck supple. FROM. No adenopathy. Thyroid Normal. No meningeal signs. No neck mass noted. CVS: Normal heart rate and rhythm. Heart sound normal. No murmurs noted. Pulses normal throughout. Respiratory: No respiratory distress. Painless inspiration. Breath sounds normal. No wheezes/rales/rhonchi noted. Chest nontender. No accessory muscle usage noted or decreased air movement noted. Abdomen: Soft and nontender. Bowel sounds normal in all 4 quadrants. No distention noted. No organomegaly noted. No visible injury noted. Back: No CVA tenderness. Full range of motion noted. Skin: Skin warm and dry. Normal skin color. Normal skin turgor. No rashes/lesions/lacerations noted. Extremities: IV needle track with sclerosed veins and both upper extremities. Neuro: Oriented X 3. Cranial nerve exam: II-XII are grossly intact No motor deficit. No sensory deficit. Reflexes normal. Course Course Course Narrative: 31-year-old male critically ill patient who is IV drug abuser and endocarditis, came to the hospital for further evaluation, patient was hospitalized to [facility] then signed against medical advise patient with history of leaving against medical advice and interruption of his necessary IV antibiotic, patient now is awake, alert, and oriented to time, person, place, and event, patient fully understand the potential risk of dying from his condition of sepsis and bacteremia. Patient received Zosyn and vancomycin the initial plan is to admit the patient to the hospital now the patient is very adamant to leave against medical advice. We had the patient to talk to his mother on the phone trying to convince him to stay in the hospital which was unsuccessful. Patient was prescribed amoxicillin from [facility], in doubt that he is going to use it. patient has the legal competency and able to decide for himself. Medical Decision Making Lab Data Result diagrams: 07/21/22 02:05 07/21/22 02:14 Labs: Lab Results 07/21/22 07/21/22 07/21/22 Range/Units 02:05 02:14 02:14 WBC 21.4 H (4.8-10.8) X10*3/uL RBC 4.51 L (4.60-5.80) X10*6/uL Hgb 11.1 L (14.0-18.0) g/dl Hct 35.5 L (42.0-52.0) % MCV 78.7 L (80.0-98.0) fL MCH 24.6 L (27.0-33.0) pg MCHC 31.3 (31.0-36.0) g/dl RDW 19.7 H (11.0-16.0) % Plt Count 135 L D (160-400) X10*3/uL MPV Not Reportable Immature Gran % (Auto) Cancelled Neut % (Auto) Cancelled Lymph % (Auto) Cancelled [place] % (Auto) Cancelled Eos % (Auto) Cancelled Baso % (Auto) Cancelled Lymph # (Auto) Cancelled [place] # (Auto) Cancelled Eos # (Auto) Cancelled Baso # (Auto) Cancelled Abs Immat Gran (auto) Cancelled Absolute Neuts (auto) Cancelled Absolute Nucleated RBC 0.000 (0.0-0.012) X10*3/uL Nucleated RBC % (auto) 0.0 (0.0-0.2) /100WBC Neutrophils % (Manual) 66 (45-73) % Band Neutrophils % 3 (3-5) % Lymphocytes % (Manual) 17 L (20-40) % Monocytes % (Manual) 6 (2-11) % Eosinophils % (Manual) 1 (0-4) % Basophils % (Manual) 1 (0-2) % Metamyelocytes % 4 % Myelocytes % 2 % Abs Neuts (Manual) 14.8 H (2.0-8.3) X10*3/uL Lymphocytes # (Manual) 3.6 (1.2-4.9) X10*3/uL Monocytes # (Manual) 1.3 H (0.1-1.2) X10*3/uL Eosinophils # (Manual) 0.2 (0.0-0.4) X10*3/uL Basophils # (Manual) 0.2 (0.0-0.2) X10*3/uL Metamyelocytes # 0.9 X10*3/uL Myelocytes # 0.4 X10*/uL Toxic Granulation PRESENT Toxic Vacuolation PRESENT Platelet Estimate SLIGHTLY DECREASED (NORMAL) Large Platelets PRESENT Plt Morphology Comment NOTED RBC Morphology NOTED Polychromasia 1+ (0-2) /OIF Hypochromasia 1+ (5-14) /OIF Microcytosis 1+ (5-14) /OIF Acanthocytes (Spur) 2+ (3-5) /OIF Schistocytes 1+ (0-2) /OIF Sodium 135 (135-145) mmol/L Potassium 4.9 D (3.3-5.1) mmol/L Chloride 104 (96-108) mmol/L Carbon Dioxide 19 L (22-29) mmol/L Anion Gap 17 (12-20) BUN 22 H D (9-16) mg/dL Creatinine 1.00 (0.5-1.4) mg/dL Estim Creat Clear Calc 97.7 Estimated GFR > 60 Random Glucose 71 (60-115) mg/dL Lactic Acid 1.0 (0.5-2.0) mmol/L Calcium 8.1 L (8.4-10.2) mg/dL Total Bilirubin 4.0 H (0.0-1.0) mg/dL Direct Bilirubin 3.0 H (0.0-0.5) mg/dL AST 15 (5-37) U/L ALT 10 (0-40) U/L Alkaline Phosphatase 241 H D (39-117) U/L Total Protein 6.7 (6.5-8.0) g/dL Albumin 2.7 L (3.5-5.0) g/dL Lipase 12 (8-78) U/L COVID-19 ([facility]) (Negative) COVID-19 Clin Com 07/21/22 Range/Units 02:14 WBC (4.8-10.8) X10*3/uL RBC (4.60-5.80) X10*6/uL Hgb (14.0-18.0) g/dl Hct (42.0-52.0) % MCV (80.0-98.0) fL MCH (27.0-33.0) pg MCHC (31.0-36.0) g/dl RDW (11.0-16.0) % Plt Count (160-400) X10*3/uL MPV Immature Gran % (Auto) Neut % (Auto) Lymph % (Auto) [place] % (Auto) Eos % (Auto) Baso % (Auto) Lymph # (Auto) [place] # (Auto) Eos # (Auto) Baso # (Auto) Abs Immat Gran (auto) Absolute Neuts (auto) Absolute Nucleated RBC (0.0-0.012) X10*3/uL Nucleated RBC % (auto) (0.0-0.2) /100WBC Neutrophils % (Manual) (45-73) % Band Neutrophils % (3-5) % Lymphocytes % (Manual) (20-40) % Monocytes % (Manual) (2-11) % Eosinophils % (Manual) (0-4) % Basophils % (Manual) (0-2) % Metamyelocytes % % Myelocytes % % Abs Neuts (Manual) (2.0-8.3) X10*3/uL Lymphocytes # (Manual) (1.2-4.9) X10*3/uL Monocytes # (Manual) (0.1-1.2) X10*3/uL Eosinophils # (Manual) (0.0-0.4) X10*3/uL Basophils # (Manual) (0.0-0.2) X10*3/uL Metamyelocytes # X10*3/uL Myelocytes # X10*/uL Toxic Granulation Toxic Vacuolation Platelet Estimate (NORMAL) Large Platelets Plt Morphology Comment RBC Morphology Polychromasia /OIF Hypochromasia /OIF Microcytosis /OIF Acanthocytes (Spur) /OIF Schistocytes /OIF Sodium (135-145) mmol/L Potassium (3.3-5.1) mmol/L Chloride (96-108) mmol/L Carbon Dioxide (22-29) mmol/L Anion Gap (12-20) BUN (9-16) mg/dL Creatinine (0.5-1.4) mg/dL Estim Creat Clear Calc Estimated GFR Random Glucose (60-115) mg/dL Lactic Acid (0.5-2.0) mmol/L Calcium (8.4-10.2) mg/dL Total Bilirubin (0.0-1.0) mg/dL Direct Bilirubin (0.0-0.5) mg/dL AST (5-37) U/L ALT (0-40) U/L Alkaline Phosphatase (39-117) U/L Total Protein (6.5-8.0) g/dL Albumin (3.5-5.0) g/dL Lipase (8-78) U/L COVID-19 ([facility]) Negative (Negative) COVID-19 Clin Com See Note Discharge Plan Discharge Clinical Impression: Bacteremia, Endocarditis, Sepsis, Pulmonary emboli, Drug abuse, IV, Acute septic pulmonary embolism Patient Disposition: Left Against Medical Advice Instructions: Endocarditis (DC) Additional Instructions: As we discussed earlier you are having a life-threatening condition called bacteremia when you have an infection in your blood and your internal organs in your condition you have infection inside your heart that is causing spreading the infection into other organs, very lethal condition can cause , leaving against medical advice and not being hospitalized will increase the risk of dying from the above condition. Prescriptions: No Action acetaminophen [Tylenol Extra Strength] 500 mg tablet 1,000 mg PO Q6H PRN (Reason: fever or pain) Qty: 20 0RF ibuprofen 600 mg tablet 600 mg PO Q6H PRN (Reason: pain) Qty: 30 0RF cyclobenzaprine 10 mg tablet 10 mg PO TID PRN (Reason: pain, muscle spasm) Qty: 15 0RF
[2022-07-21 02:15] VITALS: BP 106/69; PULSE 109; RESP 20; TEMP 37.2; O2SAT 90; BMI 20.2
[2022-07-21 02:17] LABS: Hematocrit 35.5 % (42.0-52.0); Hemoglobin 11.1 g/dl (14.0-18.0); Mean Corpuscular HGB Conc 31.3 g/dl (31.0-36.0); Mean Corpuscular Hemoglobin 24.6 pg (27.0-33.0); Mean Corpuscular Volume 78.7 fL (80.0-98.0); PLT CLUMP 1; Red Blood Count 4.51 X10*6/uL (4.60-5.80); Red Cell Distribution Width 19.7 % (11.0-16.0); WBC ABN SCTR FOR CBC 1
[2022-07-21 02:21] LABS: White Blood Count 21.4 X10*3/uL (4.8-10.8)
[2022-07-21] MEDS: 0.9 % Sodium Chloride 1,000 ML 999 ML IV (02:23)
[2022-07-21] MEDS: Piperacillin Sodium/Tazobactam 3.375 GM in 0.9 % Sodium Chloride 50 ML IV (02:26)
[2022-07-21] MEDS: vancomycin HCL 1,000 MG in 0.9 % Sodium Chloride 250 ML 270 MG IV (02:36)
[2022-07-21 02:42] LABS: Band Neutrophils Percent 3 % (3-5); Basophils Abs Manual 0.2 X10*3/uL (0.0-0.2); Basophils Percent Manual 1 % (0-2); Eosinophils Absolute Manual 0.2 X10*3/uL (0.0-0.4); Eosinophils Percent Manual 1 % (0-4); Lymphocytes Absolute Manual 3.6 X10*3/uL (1.2-4.9); Lymphocytes Percent Manual 17 % (20-40); Metamyelocytes Absolute 0.9 X10*3/uL; Metamyelocytes Percent 4 %; Microcytosis 1+ (5-14) /OIF; Monocytes Absolute Manual 1.3 X10*3/uL (0.1-1.2); Monocytes Percent Manual 6 % (2-11); Myelocytes Absolute 0.4 X10*/uL; Myelocytes Percent 2 %; Neutrophils Absolute Manual 14.8 X10*3/uL (2.0-8.3); Neutrophils Percent Manual 66 % (45-73); Platelet Estimate SLIGHTLY DECREASED (NORMAL); Platelet Morphology Comment NOTED; RBC Morphology NOTED
[2022-07-21 02:43] LABS: Acanthocytes 2+ (3-5) /OIF; Hypochromasia 1+ (5-14) /OIF; Large Platelet PRESENT; Polychromasia 1+ (0-2) /OIF; Schistocytes 1+ (0-2) /OIF; Toxic Granulation PRESENT; Toxic Vacuolation PRESENT
[2022-07-21 02:44] LABS: Platelet Count 135 X10*3/uL (160-400)
[2022-07-21 02:45] LABS: COVID-19 Test Negative (Negative); IDNOW Serial# 16C4AD1C
[2022-07-21 02:51] LABS: Alanine Aminotransferase 10 U/L (0-40); Albumin Level 2.7 g/dL (3.5-5.0); Alkaline Phosphatase 241 U/L (39-117); Anion Gap 17 (12-20); Aspartate Amino Transferase 15 U/L (5-37); Blood Urea Nitrogen 22 mg/dL (9-16); Calcium 8.1 mg/dL (8.4-10.2); Carbon Dioxide 19 mmol/L (22-29); Chloride 104 mmol/L (96-108); Creatinine Clr Calc Pharmacy 97.7; Estimated Glomerular Filt Rate > 60; Glucose Random 71 mg/dL (60-115); Lipase 12 U/L (8-78); Potassium 4.9 mmol/L (3.3-5.1); Sodium 135 mmol/L (135-145); Total Protein 6.7 g/dL (6.5-8.0)
--- NOTE | 2022-07-21 02:51 | PC.NURSE ---
pt wanting to leave to go make sure his food is not being eaten by others per pt (cereal and milk). this food has been offered to the pt. pt allowed to call his mom, provider at bedside and assessed pt ablility to make a comp descissions.
[2022-07-21 02:55] LABS: B Type Natriuretic Peptide 270 pg/mL (<100)
== END 2022-07-21 03:03 | disposition left against medical advice (07) ==
PROVIDERS: Emergency Provider Emergency Medicine
DX: R78.81 Bacteremia (principal); I38 Endocarditis, valve unspecified; I26.90 Septic pulmonary embolism without acute cor pulmonale; F19.10 Other psychoactive substance abuse, uncomplicated; K76.0 Fatty (change of) liver, not elsewhere classified; F17.210 Nicotine dependence, cigarettes, uncomplicated; Z20.822 Contact with and (suspected) exposure to COVID-19; Z95.2 Presence of prosthetic heart valve
CPT/HCPCS: 36415; 71045; 80048; 80076; 83605; 83690; 83880; 84484; 85007; 85027; 87040; 87635; 93005; 96365; 96375; 99284; J2543; J3370

== ENCOUNTER 2022-07-23 12:17 | Emergency (ER) | payer MEDICAID, SELFPAY ==
[2022-07-23 12:33] VITALS: BP 121/74; PULSE 133; O2SAT 88
[2022-07-23 13:03] VITALS: BP 112/62; PULSE 120; RESP 16; TEMP 37.8; O2SAT 90; BMI 23.3
[2022-07-23 15:46] LABS: MANUAL DIFF FLAG NO
[2022-07-23 15:49] LABS: Basophils Absolute Auto 0.1 X10*3/uL (0.0-0.2); Basophils Percent Auto 0.4 % (0-2); Eosinophils Absolute Auto 0.1 X10*3/uL (0.0-0.4); Eosinophils Percent Auto 0.5 % (0-4); Hematocrit 26.7 % (42.0-52.0); Hemoglobin 8.7 g/dl (14.0-18.0); Imm Gran Abs Auto 0.95 X10*3/uL (0.00-0.03); Imm Gran Pct Auto 4.7 % (0.0-0.4); Lymphocytes Absolute Auto 3.2 X10*3/uL (1.2-4.9); Mean Corpuscular HGB Conc 32.6 g/dl (31.0-36.0); Mean Corpuscular Hemoglobin 24.7 pg (27.0-33.0); Mean Corpuscular Volume 75.9 fL (80.0-98.0); Mean Platelet Volume 10.4 fL (9.4-12.4); Monocytes Absolute Auto 1.5 X10*3/uL (0.1-1.2); Monocytes Percent Auto 7.3 % (2-11); Neutrophils Absolute Auto 14.4 x10*3/uL (2.0-8.3); Neutrophils Percent Auto 71.1 % (45-73); Platelet Count 239 X10*3/uL (160-400); Red Blood Count 3.52 X10*6/uL (4.60-5.80); Red Cell Distribution Width 19.3 % (11.0-16.0); White Blood Count 20.3 X10*3/uL (4.8-10.8)
[2022-07-23 15:57] LABS: D Dimer High Sensitivity 1092 NG/ML
[2022-07-23 16:02] LABS: Lactic Acid 0.7 mmol/L (0.5-2.0)
[2022-07-23 16:07] LABS: Alanine Aminotransferase 7 U/L (0-40); Albumin Level 2.8 g/dL (3.5-5.0); Alkaline Phosphatase 311 U/L (39-117); Anion Gap 15 (12-20); Aspartate Amino Transferase 13 U/L (5-37); Bilirubin Total 3.1 mg/dL (0.0-1.0); Blood Urea Nitrogen 18 mg/dL (9-16); Calcium 7.9 mg/dL (8.4-10.2); Carbon Dioxide 18 mmol/L (22-29); Chloride 104 mmol/L (96-108); Creatinine Clr Calc Pharmacy 83.1; Estimated Glomerular Filt Rate > 60; Glucose Random 95 mg/dL (60-115); Potassium 4.4 mmol/L (3.3-5.1); Sodium 133 mmol/L (135-145)
[2022-07-23 16:13] LABS: Troponin-I High Sensitivity 16.1 ng/L (<3.5-35.0)
[2022-07-23 16:28] LABS: COVID-19 Test Negative (Negative); IDNOW Serial# 16C4AD1C
== END 2022-07-23 19:36 | disposition left against medical advice (07) ==
PROVIDERS: Emergency Provider Emergency Medicine
DX: R06.02 Shortness of breath (principal); F11.10 Opioid abuse, uncomplicated; Z79.899 Other long term (current) drug therapy; Z20.822 Contact with and (suspected) exposure to COVID-19
CPT/HCPCS: 36415; 80053; 83605; 84484; 85025; 85379; 87040; 87635; 99281; 99283

== ENCOUNTER 2022-07-29 01:23 | Inpatient (IN) | payer MEDICAID, SELFPAY ==
[2022-07-29] VITALS (21 sets, daily range): BP systolic 87–139; BP diastolic 51–88; PULSE 79–120; RESP 12–24; TEMP 36.4–38.3; O2SAT 93–100; BMI 23.5
--- NOTE | ~2022-07-29 | XR_ITS ---
EXAMINATION: XR FINGER, RIGHT CLINICAL INFORMATION: History of osteomyelitis of the second finger on x-ray at [facility] COMPARISON: None TECHNIQUE: PA view of the right hand. Patient was uncooperative and additional images were not obtained. FINDINGS: No fracture or dislocation or x-ray evidence of osteomyelitis is seen. Joint spaces and soft tissues are normal. XR/XR finger RT min 2V IMPRESSION: Normal PA view of the right hand. If there is clinical suspicion of osteomyelitis of the second finger, additional finger x-rays would be recommended.
--- NOTE | ~2022-07-29 | XR_ITS ---
EXAMINATION: XR CHEST CLINICAL INFORMATION: Chest pain COMPARISON: 07/21/2022 TECHNIQUE: Frontal view of the chest was obtained. FINDINGS: Lung volumes are symmetric. There is been overall interval decrease in multifocal right lung opacities, with some residual patchy opacity in the upper lung. Residual patchy opacity is also suspected at the left base. No evidence of pneumothorax or significant pleural effusion. The cardiomediastinal contour is unremarkable. No acute osseous findings are seen. Redemonstrated and epicardial pacer wires and sternal wires. XR/XR chest 1V IMPRESSION: Mild interval improvement since 07/21/2022, with residual patchy bilateral opacities.
--- NOTE | 2022-07-29 02:19 | ECG_ITS ---
Test Reason : SICK Blood Pressure : / mmHG Vent. Rate : 114 BPM Atrial Rate : 114 BPM P-R Int : 134 ms QRS Dur : 082 ms QT Int : 356 ms P-R-T Axes : 080 083 047 degrees QTc Int : 490 ms Sinus tachycardia RSR' or QR pattern in V1 suggests right ventricular conduction delay Nonspecific T wave abnormality Abnormal ECG When compared with ECG of 21-JUL-2022 02:16, T wave inversion more evident in Anterior leads Referred By: Aditi Mehta Electronically Signed By:VENITA ENGLISH MD
--- NOTE | 2022-07-29 02:28 | ED_ITS ---
HPI - General Adult General Chief complaint: Psychiatric Symptoms Stated complaint: Body Pain Time Seen by Provider: 07/29/22 01:26 History of Present Illness HPI narrative: Patient is a 31-year-old male presented to the ED after using drugs. Has a history of endocarditis. History of vegetation. History of pulmonary emboli noncompliant with Xarelto. Positive use of IV drugs tonight. Found on the street sleeping. Sent to the ED for further evaluation patient most recently left against medical advice for possible bacteremia Related Data Previous Rx's Medication Instructions Recorded acetaminophen 500 mg tablet 1,000 mg PO Q6H PRN fever or pain 06/25/22 (Tylenol Extra Strength) #20 tabs cyclobenzaprine 10 mg tablet 10 mg PO TID PRN pain, muscle 06/25/22 spasm #15 tabs ibuprofen 600 mg tablet 600 mg PO Q6H PRN pain #30 tabs 06/25/22 Allergies Allergy/AdvReac Type Severity Reaction Status Date / Time No Known Allergies Allergy Verified 06/25/22 07:02 [No Known Allergies*] Review of Systems Review of Systems: Unable to obtain full review systems secondary to patient's noncompliance PMFSH Past Medical History Attestation statement: The following information was validated with the patient. Medical History Anasarca Bacteremia Bacteremia Endocarditis HCV (hepatitis C virus) Pulmonary embolism Right heart failure Steatosis, liver Tricuspid valve stenosis Surgical History History of tricuspid valve replacement with bioprosthetic valve Social History Social History Household Members: None Household Members Other:: none. homeless Housing: Homeless Do you presently have visiting nurse or other home services: No Unable to assess alcohol history related to: Refusing to respond Alcohol intake: current Alcohol intake frequency: 3 or more drinks per day Patient Tobacco Use Status: Tobacco use Unknown Tobacco use type: Cigarette Cigarette Packs Per Day: 1 Cigarettes Per Day: 20.0 Years Smoked: 10 Second Hand Smoke Exposure: No Substance Use Type: Heroin Advance Directives: No Advance Directives Date on File: 04/16/21 service: No Current occupational status: unemployed Physical Exam ED Vital Signs: Vital Signs - 24 hr 07/29/22 02:02 07/29/22 04:00 07/29/22 04:19 Temperature 100.5 F H 98.0 F Pulse Rate 79 99 93 Respiratory Rate 18 18 19 Blood Pressure 139/68 93/62 Pulse Oximetry 97 96 Oxygen Delivery Method Room Air Room Air 07/29/22 04:50 07/29/22 05:15 Temperature 97.8 F 97.8 F Pulse Rate 92 91 Respiratory Rate 14 17 Blood Pressure 89/52 L 88/55 L Pulse Oximetry 95 95 Oxygen Delivery Method Room Air Room Air BMI result Body Mass Index 23.5 Appearance: Alert. Lethargic, agitated at times. No acute distress. Eyes: Pupils equal, round and reactive to light. ENT: Pharynx normal. Neck: Normal inspection. Neck supple. No lymph nodes noted. No crepitus CVS: Normal heart rate and rhythm. Pulses normal. Normal S1 and S2. There is a midline scar noted. Grossly wound is not infected. Respiratory: No respiratory distress. Breath sounds normal. No Wheezing. No rales Abdomen: Soft and nontender. No rigidity. No distention. good BS x4 Skin: Skin warm and dry. Normal skin color. Normal skin turgor. Multiple track tan noted Extremities: No lower extremity edema. Neurovascular intact to all extremities. No Lacerations. No Rash Neuro: Lethargic agitated on waking up. No motor deficit. No sensory deficit. Moving all extermities. No slurred speech Medical Decision Making MDM Narrative Medical decision making narrative: Patient's old record obtained from [facility]. Long history of polysubstance abuse including heroin cocaine alcohol and smoking. 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 Supposed to be on Xarelto but is not compliant. History of strep varied and endocarditis in the tricuspid valve. With vegetation. Did not complete antibiotic course. Recurrent polymicrobial bacteremia strep mitis bacteremia, chronic untreated hepatitis-C. Patient presented after using recreational drugs heavily being found on the street. He had a fever. Patient did not object to being admitted today. Cultures obtained. Started empirically on Zosyn and vancomycin. Patient's blood pressure was low given 30 cc/kilos of IV fluid. Patient lactate was normal. No evidence for severe sepsis. Will admit to the hospitalist service for further evaluation. Medical Records Medical records reviewed: Yes I reviewed the patient's medical records. Lab Data Lab results reviewed: Yes I reviewed the patient's lab results. Result diagrams: 07/29/22 02:27 07/29/22 02:27 Labs: Lab Results 07/29/22 07/29/22 07/29/22 Range/Units 02: 02: 02:27 WBC 16.4 H (4.8-10.8) X10*3/uL RBC 3.66 L (4.60-5.80) X10*6/uL Hgb 9.2 L (14.0-18.0) g/dl Hct 28.6 L (42.0-52.0) % MCV 78.1 L (80.0-98.0) fL MCH 25.1 L (27.0-33.0) pg MCHC 32.2 (31.0-36.0) g/dl RDW 20.6 H (11.0-16.0) % Plt Count 257 (160-400) X10*3/uL MPV 9.9 (9.4-12.4) fL Immature Gran % (Auto) 1.0 H (0.0-0.4) % Neut % (Auto) 76.4 H (45-73) % Lymph % (Auto) 13.2 L (20-40) % [place] % (Auto) 8.1 (2-11) % Eos % (Auto) 0.7 (0-4) % Baso % (Auto) 0.6 (0-2) % Lymph # (Auto) 2.2 (1.2-4.9) X10*3/uL [place] # (Auto) 1.3 H (0.1-1.2) X10*3/uL Eos # (Auto) 0.1 (0.0-0.4) X10*3/uL Baso # (Auto) 0.1 (0.0-0.2) X10*3/uL Abs Immat Gran (auto) 0.16 H (0.00-0.03) X10*3/uL Absolute Neuts (auto) 12.5 H (2.0-8.3) x10*3/uL Absolute Nucleated RBC 0.000 (0.0-0.012) X10*3/uL Nucleated RBC % (auto) 0.0 (0.0-0.2) /100WBC ESR 28 H (0-15) MM/HR Sodium 138 (135-145) mmol/L Potassium 4.0 (3.3-5.1) mmol/L Chloride 106 (96-108) mmol/L Carbon Dioxide 20 L (22-29) mmol/L Anion Gap 16 (12-20) BUN 15 (9-16) mg/dL Creatinine 1.03 (0.5-1.4) mg/dL Estim Creat Clear Calc 95.3 Estimated GFR > 60 Random Glucose 77 (60-115) mg/dL Lactic Acid (0.5-2.0) mmol/L Calcium 7.9 L (8.4-10.2) mg/dL Total Bilirubin 1.9 H (0.0-1.0) mg/dL Direct Bilirubin 1.3 H (0.0-0.5) mg/dL AST 14 (5-37) U/L ALT 6 (0-40) U/L Alkaline Phosphatase 253 H (39-117) U/L Troponin I High Sens (<3.5-35.0) ng/L C-Reactive Protein 5.47 H (< or = 0.50) mg/dL Total Protein 6.6 (6.5-8.0) g/dL Albumin 2.5 L (3.5-5.0) g/dL Urine Color Urine Appearance Urine pH (5.0-9.0) Ur Specific [place] (1.005-1.025) Urine Protein (Neg-Trace) mg/dL Urine Glucose (UA) (Negative) mg/dL Urine Ketones (Negative) mg/dL Urine Blood (Negative) Urine Nitrite (Negative) Ur Leukocyte Esterase (Negative) Urine RBC (0-2) /HPF Urine WBC (0-5) /HPF Ur Squamous Epith Cells (0-2) /HPF Urine Bacteria (None Seen) Hyaline Casts (0-2) /LPF Urine Opiates Screen (Not Detect) Urine Fentanyl Screen (Not Detect) Ur Barbiturates Screen (Not Detect) Ur Phencyclidine Scrn (Not Detect) Ur Amphetamines Screen (Not Detect) U Benzodiazepines Scrn (Not Detect) Urine Cocaine Screen (Not Detect) U Marijuana (THC) Screen (Not Detect) Influenza Type A (PCR) (Negative) Influenza Type B (PCR) (Negative) RSV RNA Qual (PCR) (Negative) SARS-CoV-2 RNA (RT-PCR) (Negative) 07/29/22 07/29/22 07/29/22 Range/Units 02:27 02:27 02:27 WBC (4.8-10.8) X10*3/uL RBC (4.60-5.80) X10*6/uL Hgb (14.0-18.0) g/dl Hct (42.0-52.0) % MCV (80.0-98.0) fL MCH (27.0-33.0) pg MCHC (31.0-36.0) g/dl RDW (11.0-16.0) % Plt Count (160-400) X10*3/uL MPV (9.4-12.4) fL Immature Gran % (Auto) (0.0-0.4) % Neut % (Auto) (45-73) % Lymph % (Auto) (20-40) % [place] % (Auto) (2-11) % Eos % (Auto) (0-4) % Baso % (Auto) (0-2) % Lymph # (Auto) (1.2-4.9) X10*3/uL [place] # (Auto) (0.1-1.2) X10*3/uL Eos # (Auto) (0.0-0.4) X10*3/uL Baso # (Auto) (0.0-0.2) X10*3/uL Abs Immat Gran (auto) (0.00-0.03) X10*3/uL Absolute Neuts (auto) (2.0-8.3) x10*3/uL Absolute Nucleated RBC (0.0-0.012) X10*3/uL Nucleated RBC % (auto) (0.0-0.2) /100WBC ESR (0-15) MM/HR Sodium (135-145) mmol/L Potassium (3.3-5.1) mmol/L Chloride (96-108) mmol/L Carbon Dioxide (22-29) mmol/L Anion Gap (12-20) BUN (9-16) mg/dL Creatinine (0.5-1.4) mg/dL Estim Creat Clear Calc Estimated GFR Random Glucose (60-115) mg/dL Lactic Acid 0.9 (0.5-2.0) mmol/L Calcium (8.4-10.2) mg/dL Total Bilirubin (0.0-1.0) mg/dL Direct Bilirubin (0.0-0.5) mg/dL AST (5-37) U/L ALT (0-40) U/L Alkaline Phosphatase (39-117) U/L Troponin I High Sens 11.4 (<3.5-35.0) ng/L C-Reactive Protein (< or = 0.50) mg/dL Total Protein (6.5-8.0) g/dL Albumin (3.5-5.0) g/dL Urine Color Urine Appearance Urine pH (5.0-9.0) Ur Specific [place] (1.005-1.025) Urine Protein (Neg-Trace) mg/dL Urine Glucose (UA) (Negative) mg/dL Urine Ketones (Negative) mg/dL Urine Blood (Negative) Urine Nitrite (Negative) Ur Leukocyte Esterase (Negative) Urine RBC (0-2) /HPF Urine WBC (0-5) /HPF Ur Squamous Epith Cells (0-2) /HPF Urine Bacteria (None Seen) Hyaline Casts (0-2) /LPF Urine Opiates Screen (Not Detect) Urine Fentanyl Screen (Not Detect) Ur Barbiturates Screen (Not Detect) Ur Phencyclidine Scrn (Not Detect) Ur Amphetamines Screen (Not Detect) U Benzodiazepines Scrn (Not Detect) Urine Cocaine Screen (Not Detect) U Marijuana (THC) Screen (Not Detect) Influenza Type A (PCR) NEGATIVE (Negative) Influenza Type B (PCR) NEGATIVE (Negative) RSV RNA Qual (PCR) NEGATIVE (Negative) SARS-CoV-2 RNA (RT-PCR) NEGATIVE (Negative) 07/29/22 07/29/22 Range/Units 02:35 02:35 WBC (4.8-10.8) X10*3/uL RBC (4.60-5.80) X10*6/uL Hgb (14.0-18.0) g/dl Hct (42.0-52.0) % MCV (80.0-98.0) fL MCH (27.0-33.0) pg MCHC (31.0-36.0) g/dl RDW (11.0-16.0) % Plt Count (160-400) X10*3/uL MPV (9.4-12.4) fL Immature Gran % (Auto) (0.0-0.4) % Neut % (Auto) (45-73) % Lymph % (Auto) (20-40) % [place] % (Auto) (2-11) % Eos % (Auto) (0-4) % Baso % (Auto) (0-2) % Lymph # (Auto) (1.2-4.9) X10*3/uL [place] # (Auto) (0.1-1.2) X10*3/uL Eos # (Auto) (0.0-0.4) X10*3/uL Baso # (Auto) (0.0-0.2) X10*3/uL Abs Immat Gran (auto) (0.00-0.03) X10*3/uL Absolute Neuts (auto) (2.0-8.3) x10*3/uL Absolute Nucleated RBC (0.0-0.012) X10*3/uL Nucleated RBC % (auto) (0.0-0.2) /100WBC ESR (0-15) MM/HR Sodium (135-145) mmol/L Potassium (3.3-5.1) mmol/L Chloride (96-108) mmol/L Carbon Dioxide (22-29) mmol/L Anion Gap (12-20) BUN (9-16) mg/dL Creatinine (0.5-1.4) mg/dL Estim Creat Clear Calc Estimated GFR Random Glucose (60-115) mg/dL Lactic Acid (0.5-2.0) mmol/L Calcium (8.4-10.2) mg/dL Total Bilirubin (0.0-1.0) mg/dL Direct Bilirubin (0.0-0.5) mg/dL AST (5-37) U/L ALT (0-40) U/L Alkaline Phosphatase (39-117) U/L Troponin I High Sens (<3.5-35.0) ng/L C-Reactive Protein (< or = 0.50) mg/dL Total Protein (6.5-8.0) g/dL Albumin (3.5-5.0) g/dL Urine Color Dark Yellow Urine Appearance Clear Urine pH 6.0 (5.0-9.0) Ur Specific [place] 1.015 (1.005-1.025) Urine Protein 30 (1+) H (Neg-Trace) mg/dL Urine Glucose (UA) Negative (Negative) mg/dL Urine Ketones Negative (Negative) mg/dL Urine Blood Large (3+) H (Negative) Urine Nitrite Negative (Negative) Ur Leukocyte Esterase Trace H (Negative) Urine RBC >20 H (0-2) /HPF Urine WBC 0-5 (0-5) /HPF Ur Squamous Epith Cells 0-2 (0-2) /HPF Urine Bacteria None Seen (None Seen) Hyaline Casts 0-2 (0-2) /LPF Urine Opiates Screen POSITIVE H (Not Detect) Urine Fentanyl Screen POSITIVE H (Not Detect) Ur Barbiturates Screen Not Detected (Not Detect) Ur Phencyclidine Scrn Not Detected (Not Detect) Ur Amphetamines Screen Not Detected (Not Detect) U Benzodiazepines Scrn Not Detected (Not Detect) Urine Cocaine Screen POSITIVE H (Not Detect) U Marijuana (THC) Screen Not Detected (Not Detect) Influenza Type A (PCR) (Negative) Influenza Type B (PCR) (Negative) RSV RNA Qual (PCR) (Negative) SARS-CoV-2 RNA (RT-PCR) (Negative) Critical Care Time Critical Care Time Critical Care Time: Yes Total Critical Care Time: 40 Attestation: I have personally provided 40 minutes of critical care time exclusive of time spent on separately billable procedures. Time includes review of lab data, radiology results, discussion with consultants, and monitoring for potential decompensation. Interventions were performed as documented above Discharge Plan Discharge Clinical Impression: Bacteremia Patient Disposition: Admitted As Inpatient Prescriptions: No Action acetaminophen [Tylenol Extra Strength] 500 mg tablet 1,000 mg PO Q6H PRN (Reason: fever or pain) Qty: 20 0RF ibuprofen 600 mg tablet 600 mg PO Q6H PRN (Reason: pain) Qty: 30 0RF cyclobenzaprine 10 mg tablet 10 mg PO TID PRN (Reason: pain, muscle spasm) Qty: 15 0RF
[2022-07-29 02:35] LABS: MANUAL DIFF FLAG NO
[2022-07-29 02:37] LABS: Basophils Absolute Auto 0.1 X10*3/uL (0.0-0.2); Basophils Percent Auto 0.6 % (0-2); Eosinophils Absolute Auto 0.1 X10*3/uL (0.0-0.4); Eosinophils Percent Auto 0.7 % (0-4); Hematocrit 28.6 % (42.0-52.0); Hemoglobin 9.2 g/dl (14.0-18.0); Imm Gran Abs Auto 0.16 X10*3/uL (0.00-0.03); Lymphocytes Absolute Auto 2.2 X10*3/uL (1.2-4.9); Lymphocytes Percent Auto 13.2 % (20-40); Mean Corpuscular HGB Conc 32.2 g/dl (31.0-36.0); Mean Corpuscular Hemoglobin 25.1 pg (27.0-33.0); Mean Corpuscular Volume 78.1 fL (80.0-98.0); Mean Platelet Volume 9.9 fL (9.4-12.4); Monocytes Absolute Auto 1.3 X10*3/uL (0.1-1.2); Monocytes Percent Auto 8.1 % (2-11); Neutrophils Absolute Auto 12.5 x10*3/uL (2.0-8.3); Neutrophils Percent Auto 76.4 % (45-73); Platelet Count 257 X10*3/uL (160-400); Red Blood Count 3.66 X10*6/uL (4.60-5.80); Red Cell Distribution Width 20.6 % (11.0-16.0); White Blood Count 16.4 X10*3/uL (4.8-10.8)
[2022-07-29 02:45] LABS: Appearance Urine Clear; Color Urine Dark Yellow; Glucose Urine UA Negative (Negative); Leukocyte Esterase Urine Trace (Negative); Nitrite Urine Negative (Negative); Specific Gravity - Urine 1.015 (1.005-1.025); UMIC TRIGGER UACC YES; Urine Blood Large (3+) (Negative); Urine Ketones Negative (Negative); Urine Protein 30 (1+) mg/dL (Neg-Trace)
[2022-07-29 02:49] LABS: Lactic Acid 0.9 mmol/L (0.5-2.0)
[2022-07-29 02:49] LABS: Bacteria Urine None Seen (None Seen); Hyaline Casts Urine 0-2 /LPF (0-2); RBC Urine >20 /HPF (0-2); Squamous Epithelial Cell Urine 0-2 /HPF (0-2); WBC Urine 0-5 /HPF (0-5)
[2022-07-29] MEDS: SODIUM CHLORIDE 2046 ML IV (02:49)
[2022-07-29] MEDS: Piperacillin Sodium/Tazobactam 4.5 GM in 0.9 % Sodium Chloride 100 ML IV (02:50)
[2022-07-29] MEDS: Acetaminophen 325 MG TABLET 975 MG PO (02:50)
[2022-07-29 02:54] LABS: Alanine Aminotransferase 6 U/L (0-40); Albumin Level 2.5 g/dL (3.5-5.0); Alkaline Phosphatase 253 U/L (39-117); Anion Gap 16 (12-20); Aspartate Amino Transferase 14 U/L (5-37); Bilirubin Direct 1.3 mg/dL (0.0-0.5); Bilirubin Total 1.9 mg/dL (0.0-1.0); Blood Urea Nitrogen 15 mg/dL (9-16); C Reactive Protein 5.47 mg/dL (< or = 0.50); Calcium 7.9 mg/dL (8.4-10.2); Carbon Dioxide 20 mmol/L (22-29); Chloride 106 mmol/L (96-108); Creatinine Clr Calc Pharmacy 95.3; Estimated Glomerular Filt Rate > 60; Glucose Random 77 mg/dL (60-115); Sodium 138 mmol/L (135-145); Total Protein 6.6 g/dL (6.5-8.0)
[2022-07-29 03:15] LABS: Erythrocyte Sedimentation Rate 28 MM/HR (0-15)
[2022-07-29 03:16] LABS: Influenza A PCR NEGATIVE (Negative); Influenza B PCR NEGATIVE (Negative); Resp Syncy Virus RNA Qual PCR NEGATIVE (Negative); SARS COV2 PCR INHOUSE NEGATIVE (Negative)
[2022-07-29] MEDS: vancomycin HCL 1,000 MG in 0.9 % Sodium Chloride 250 ML 270 MG IV ×3 (03:16→22:08)
[2022-07-29 04:01] LABS: Troponin-I High Sensitivity 11.4 ng/L (<3.5-35.0)
--- NOTE | 2022-07-29 04:04 | PC.NURSE ---
Pt sleeping. Breaths are even and unlabored. HR 96 bpm. Van 1gm running at 250/ml/hr. Will continue to monitor.
--- NOTE | 2022-07-29 04:17 | PC.NURSE ---
Pressure bag added to normal saline.
[2022-07-29 05:09] LABS: Amphetamine Screen Urine Not Detected (Not Detect); Barbiturates, Urine Not Detected (Not Detect); Benzodiazepines Screen Urine Not Detected (Not Detect); Cannabinoid Screen Urine Not Detected (Not Detect); Cocaine Screen Urine POSITIVE (Not Detect); Fentanyl, urine POSITIVE (Not Detect); Opiate Screen Urine POSITIVE (Not Detect); Phencyclidine Screen Urine Not Detected (Not Detect)
--- NOTE | 2022-07-29 05:19 | PC.NURSE ---
Two blood pressures following completion of fluids showing hypotension. notified. New orders for 1L of NS.
[2022-07-29] MEDS: 0.9 % Sodium Chloride 1,000 ML 999 ML IV ×2 (05:30→06:48)
--- NOTE | 2022-07-29 06:04 | PC.NURSE ---
Pt continues to be hypotensive. Pt re-positioned to trendelenburg with BP improvement; 93/62 HR 85. aware.
--- NOTE | 2022-07-29 08:54 | PC.NURSE ---
MD made aware of patients blood pressure
--- NOTE | 2022-07-29 09:16 | P.HPHOSP_ITS ---
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 The patient was recently admitted to [facility] on 07/16 for evaluation of chest pain where he was found to have multiple issues including hypotenstion, LUCERO, septic shock secondary to GBS bacteremia (initially requiring pressor support), PE/Septic pulmonary emobli to lung and spleen, LUCERO and suspected osteo of the R 2nd digit. THe patient was treated with pressors and IV antibiotics + IV heparin drip. He improved but was not medically ready for discharge as his blood cultures remains positive. Unfortunately he signed out AMA from [facility] on 07/20/22. Of note, the patient had presented to [facility] on the 07/21/22 for chest pain with plans for admission, but left AMA from the ED. Upon arrival to [facility] today, the patient was noted to be hypotensive. His CXR showed patchy bilateral opacities which were improved from the cxr om 07/21/22. He was given IV (sepsis 30 cc/kg bolus + 2L additional). BP remained borderline and per ED provider -- case was d/w programming director who felt patient stable for floor admission. Pt is seen and examined around 9AM. He is awake and alert. He reports chest pain with inspiration. His main complaint currently is being hungry and is requested food. He is willing to be admitted for treatment at this time. In regards to other symptopms, he does not divulge much, stating he is hungry right now. He reports last use about 4 hours prior to ED arrival. Review of Systems Review of Systems: negative except HPI [facility] Medical History Anasarca Bacteremia Bacteremia Endocarditis HCV (hepatitis C virus) Pulmonary embolism Right heart failure Steatosis, liver Tricuspid valve stenosis Surgical History History of tricuspid valve replacement with bioprosthetic valve Social History Household Members: None Household Members Other:: none. homeless Housing: Homeless Do you presently have visiting nurse or other home services: No Unable to assess alcohol history related to: Refusing to respond Alcohol intake: current Alcohol intake frequency: 3 or more drinks per day Patient Tobacco Use Status: Tobacco use Unknown Tobacco use type: Cigarette Cigarette Packs Per Day: 1 Cigarettes Per Day: 20.0 Years Smoked: 10 Second Hand Smoke Exposure: No Substance Use Type: Heroin Advance Directives: No Advance Directives Date on File: 04/16/21 service: No Current occupational status: unemployed Meds Allergies Allergy/AdvReac Type Severity Reaction Status Date / Time No Known Allergies Allergy Verified 06/25/22 07:02 [No Known Allergies*] Active Medications: Current Medications Acetaminophen (Acetaminophen 325 Mg Tablet) 650 mg PO Q6H PRN PRN Reason: Pain, Mild (Pain Scale 1-3) Enoxaparin Sodium (Enoxaparin Sodium 80 Mg/0.8 Ml Syringe) 70 mg SUBCUT Q12H CRISTINA Vancomycin HCl 1,000 mg/ (Sodium Chloride) 270 mls @ 270 mls/hr IV Q12H CRISTINA Cefepime HCl 2 gm/ Sodium (Chloride) 50 mls @ 100 mls/hr IV Q8H [facility] Albumin Human (Kedbumin 25 %) 100 mls @ 100 mls/hr IV Q1H [facility] Stop: 07/29/22 11:14 Ondansetron HCl (Ondansetron Hcl 4 Mg/2 Ml Vial) 4 mg IVPUSH Q8H PRN PRN Reason: Nausea and Vomiting Pharmacy Consult (Consult Rx Perform Med Rec) 1 each MISCELLANE ONCE PRN PRN Reason: Consult order Pharmacy Consult (Consult Rx Perform Med Rec) 1 each MISCELLANE ONCE PRN PRN Reason: Consult order Pharmacy Consult (Consult Rx Vancomycin Dosing) 1 each MISCELLANE DAILY PRN PRN Reason: Consult order Sodium Chloride (0.9 % Sodium Chloride Flush 3 Ml Syringe) 3 ml IVFLUSH QSHIFT [facility] Home Medications Medication Instructions Recorded Confirmed Last Taken Type amoxicillin 500 mg tablet 1,000 mg PO TID 07/29/22 07/29/22 Unknown History rivaroxaban 20 mg tablet (Xarelto) 20 mg PO DAILY 07/29/22 07/29/22 Unknown History Physical Exam Vital Signs and Narrative: Vital Signs: Last Vital Signs Temp 97.6 F 07/29/22 08:58 Pulse 84 07/29/22 08:58 Resp 15 07/29/22 08:58 BP 93/55 L 07/29/22 08:58 Pulse Ox 94 07/29/22 08:58 O2 Del Method 07/29/22 08:58 BMI result Body Mass Index 23.5 Const: Other: Constitutional - unkempt and disheveled, awake and alert, appears irritated with questioning Eyes - PERRLA, EOMI Cardiovascular - S2S2; slight tachy around 105; Respiratory - breathing comfortably without any respiratory distress Gastrointestinal - NT / ND; +BS; No rebound or guarding - No CVA tenderness Extremities - no calf tenderness bilaterally, no swelling Musculoskeletal - Normal inspection, normal ROM Skin - Warm/Dry Neurological - Oriented to person, place and time; knows the day of the week; knows he was at [facility] for treatment of bacteremia; non-focal exam Psychological - Appropriate affect Results Labs CBC and Chem 7: 07/29/22 02:27 07/29/22 02:27 Labs: Laboratory Results - last 24 hr 07/29/22 07/29/22 07/29/22 02:27 02:27 02:27 MCV 78.1 L MCH 25.1 L MCHC 32.2 RDW 20.6 H Plt Count 257 MPV 9.9 Immature Gran % (Auto) 1.0 H Neut % (Auto) 76.4 H Lymph % (Auto) 13.2 L Finney % (Auto) 8.1 Eos % (Auto) 0.7 Baso % (Auto) 0.6 Lymph # (Auto) 2.2 Finney # (Auto) 1.3 H Eos # (Auto) 0.1 Baso # (Auto) 0.1 Abs Immat Gran (auto) 0.16 H Absolute Neuts (auto) 12.5 H Absolute Nucleated RBC 0.000 Nucleated RBC % (auto) 0.0 ESR 28 H Anion Gap 16 Estim Creat Clear Calc 95.3 Estimated GFR > 60 Random Glucose 77 Lactic Acid Calcium 7.9 L Total Bilirubin 1.9 H Direct Bilirubin 1.3 H AST 14 ALT 6 Alkaline Phosphatase 253 H Troponin I High Sens C-Reactive Protein 5.47 H Total Protein 6.6 Albumin 2.5 L Urine Color Urine Appearance Urine pH Ur Specific Orrum Urine Protein Urine Glucose (UA) Urine Ketones Urine Blood Urine Nitrite Ur Leukocyte Esterase Urine RBC Urine WBC Ur Squamous Epith Cells Urine Bacteria Hyaline Casts Urine Opiates Screen Urine Fentanyl Screen Ur Barbiturates Screen Ur Phencyclidine Scrn Ur Amphetamines Screen U Benzodiazepines Scrn Urine Cocaine Screen U Marijuana (THC) Screen Influenza Type A (PCR) Influenza Type B (PCR) RSV RNA Qual (PCR) SARS-CoV-2 RNA (RT-PCR) 07/29/22 07/29/22 07/29/22 02:27 02:27 02:27 MCV MCH MCHC RDW Plt Count MPV Immature Gran % (Auto) Neut % (Auto) Lymph % (Auto) Finney % (Auto) Eos % (Auto) Baso % (Auto) Lymph # (Auto) Finney # (Auto) Eos # (Auto) Baso # (Auto) Abs Immat Gran (auto) Absolute Neuts (auto) Absolute Nucleated RBC Nucleated RBC % (auto) ESR Anion Gap Estim Creat Clear Calc Estimated GFR Random Glucose Lactic Acid 0.9 Calcium Total Bilirubin Direct Bilirubin AST ALT Alkaline Phosphatase Troponin I High Sens 11.4 C-Reactive Protein Total Protein Albumin Urine Color Urine Appearance Urine pH Ur Specific Orrum Urine Protein Urine Glucose (UA) Urine Ketones Urine Blood Urine Nitrite Ur Leukocyte Esterase Urine RBC Urine WBC Ur Squamous Epith Cells Urine Bacteria Hyaline Casts Urine Opiates Screen Urine Fentanyl Screen Ur Barbiturates Screen Ur Phencyclidine Scrn Ur Amphetamines Screen U Benzodiazepines Scrn Urine Cocaine Screen U Marijuana (THC) Screen Influenza Type A (PCR) NEGATIVE Influenza Type B (PCR) NEGATIVE RSV RNA Qual (PCR) NEGATIVE SARS-CoV-2 RNA (RT-PCR) NEGATIVE 07/29/22 07/29/22 02:35 02:35 MCV MCH MCHC RDW Plt Count MPV Immature Gran % (Auto) Neut % (Auto) Lymph % (Auto) Finney % (Auto) Eos % (Auto) Baso % (Auto) Lymph # (Auto) Finney # (Auto) Eos # (Auto) Baso # (Auto) Abs Immat Gran (auto) Absolute Neuts (auto) Absolute Nucleated RBC Nucleated RBC % (auto) ESR Anion Gap Estim Creat Clear Calc Estimated GFR Random Glucose Lactic Acid Calcium Total Bilirubin Direct Bilirubin AST ALT Alkaline Phosphatase Troponin I High Sens C-Reactive Protein Total Protein Albumin Urine Color Dark Yellow Urine Appearance Clear Urine pH 6.0 Ur Specific Orrum 1.015 Urine Protein 30 (1+) H Urine Glucose (UA) Negative Urine Ketones Negative Urine Blood Large (3+) H Urine Nitrite Negative Ur Leukocyte Esterase Trace H Urine RBC >20 H Urine WBC 0-5 Ur Squamous Epith Cells 0-2 Urine Bacteria None Seen Hyaline Casts 0-2 Urine Opiates Screen POSITIVE H Urine Fentanyl Screen POSITIVE H Ur Barbiturates Screen Not Detected Ur Phencyclidine Scrn Not Detected Ur Amphetamines Screen Not Detected U Benzodiazepines Scrn Not Detected Urine Cocaine Screen POSITIVE H U Marijuana (THC) Screen Not Detected Influenza Type A (PCR) Influenza Type B (PCR) RSV RNA Qual (PCR) SARS-CoV-2 RNA (RT-PCR) Imaging Radiologist's Impressions: Impressions Chest X-Ray 07/29/22 03:15 IMPRESSION: Mild interval improvement since 07/21/2022, with residual patchy bilateral opacities. 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 He is found to be septic with likely bacteremia / endocarditis / septic pulm and spleen emboli. He is willing to stay for treatment at this time. 1. Sepsis secondary to suspected bacteremia / septic pulm emboli GBS in the blood per [facility] reports -- will start vancomcyin/cefepime for now and await blood cx; his blood cx from previous ED on 07/21 are negative thus far Jeffrey likely need 6 weeks to treatment if he is compliant will need eventual ID consult [facility] records indicated no obvious veg on TTE and ALDAIR deemed no necessary by CT surgery as he is not a surgical candidate --can be considered 2. Pulmonary emboli on most recent CTA at [facility] and previously in 2020 -- documented non-compliance in the [facility] [place] Will hold xarelto and use lovenox 1mg/kg BID for now 3. R Hand, 2nd digit osteo noted on XR on [facility], will repeat now antibiotics as above 4. Cirrhosis / untreated hep C Bili improved compared to previous values would need outpatient f/u 5. Polysubstance abuse d/w him briefly re: MAT for opiate use disorder -- he declines at this time; will continue to encourage treatment Full Code DVT pptx, Lovenox Due to his sepsis and suspected bacteremia which will require IV antibiotics, awaiting 48 hours to ensure clearance of blood cultures and expert consultation with ID, I anticipate the patient will an inpatient hospitalization for treatment and monitoring of response which is likely to span at least 2 midnights. Quality Stroke Does the patient have a stroke diagnosis?: No VTE Prior VTE?: No VTE Risk Level:: Medical - moderate - high VTE Device Contraindication: Treatment Not Indicated VTE Drug Contraindication: N/A - Med Ordered
--- NOTE | 2022-07-29 09:24 | PHA.MEDREC ---
Pharmacy Consult ? Medication Reconciliation Pharmacy has completed the medication reconciliation. Patient is a poor historian. Patient recently discharged from [facility] on 07/20/22. Xarelto and amoxicillin were sent to the pharmacy. Medication were no picked up. Patient mom and brother reported patient is not adherent to medications. Yany Donis, PharmD
--- NOTE | 2022-07-29 09:30 | PHA.PROG ---
Admission Date/Time: July 29, 2022 09:09 Indication: Sepsis, hx osteo/endocarditis Weight in k.2 kg Adjusted body weight in K.2 kg [place] body weight in K.1 kg Obesity Dosing Indication % IBW: 103% Serum Creatinine - Last 168 Hours 07/29/22 02:27 Creatinine 1.03 Estimated CrCl and GFR - Last 168 Hours 07/29/22 02:27 Estim Creat Clear Calc 95.3 Estimated GFR > 60 Vancomycin Loading Dose: 1000 mg Current Vancomycin Dosing Regimen: 1000 mg Q12H Date and Time for next Vancomycin Level to be drawn: 07/30 @ 0900 Pharmacist Comments on Vancomycin Plan: Patient received first dose vancomycin 1000 mg in the ED on 07/29 @ 0316. Since patient did not receive an adequate loading dose, will start maintenance dose in 8 hours to create a load dose. Maintenance dose vancomycin 1000 mg Q12H is scheduled to start 07/29 @ 1100. Expected AUC 520 with a trough of 15.9 Trough is scheduled for prior to the 4th dose Pharmacy will monitor renal function daily. Yany Donis PharmD Vancomycin dosing will take advantage of [employer] as a clinical decision support tool that uses Bayesian modeling to calculate individual patient's pharmacokinetic parameters and forecast the patient's drug concentration time course with the target goal AUC 24 range of 400 - 600 mg/L/hr.
[2022-07-29] MEDS: Albumin Human 25 % 100 ML IV ×2 (09:35→11:36)
[2022-07-29 09:39] LABS: INTERNATIONAL NORM RATIO 1.7 (0.9-1.1); Prothrombin Time 19.8 SEC (10.0-13.1)
[2022-07-29 09:42] LABS: Partial Thromboplastin Time 38.9 SEC (26.0-36.4)
--- NOTE | 2022-07-29 10:01 | PC.NURSE ---
Patient refusing additional IV line from this RN. Dr. Mariee notified. Dr. Mariee instructed to give albumin first then antibiotics
--- NOTE | 2022-07-29 10:56 | PC.NURSE ---
Patient refusing medications. Dr. Mariee notified.
[2022-07-29] MEDS: Enoxaparin Sodium 80 MG/0.8 ML SYRINGE 70 MG SUBCUT (11:35)
[2022-07-29] MEDS: cefEPime HCl 2 GM in 0.9 % Sodium Chloride 50 ML IV ×2 (12:40→20:34)
--- NOTE | 2022-07-29 13:52 | P.EN_ITS ---
Event Note Date of Service: 07/30/22 Event Note: Notified (shortly after admission) that the patient was refusing care and wanted to leave against medical advice. Pt seen bedside. He reports that he is hungry and would like something to eat. He states that he will leave AMA otherwise. Pt informed that he has a diet ordered and will be getting a tray soon. Furthermore, when questioned why he left AMA from [facility], he reports that he was not getting sufficient treatment for withdrawal there. Earlier the patient verbalized not wanted MAT, but now is requested methadone. Have informed the patient that we can consult Addiction medicine, but he needs to also let us treat his other medical issues. The patient reports being well aware of his on going infectious issues and states he knows what the consequences are as he has been through this before.
--- NOTE | 2022-07-29 15:26 | MHC.RECOVSUP ---
Recovery Support note: Patient is a 31 year old Palestinian speaking male who presented to [facility] via EMS after being found asleep in the community. This sports book writer met with patient to discuss withdrawal symptoms. Patient was sleeping when this sports book writer approached however awoke once shoulder was touched. Patient began groaning and appeared uncomfortable. Patient was difficult to engage however reported all withdrawal symptoms and that he is interested in receiving methadone. Patient reports using 15 bags a day. Discussed case with Tami Luna NP.
[2022-07-29] MEDS: 0.9 % Sodium Chloride Flush 3 ML SYRINGE IVFLUSH ×2 (15:41→23:15)
[2022-07-29] MEDS: methADONE HCl 20 MG/2 ML ORAL.CONC PO (15:41)
--- NOTE | 2022-07-29 19:17 | PC.NURSE ---
Care of patient assumed at 1900. Patient found shouting from his room, I need food! Fuck this! Limits, respect, and boundaries addressed with patient and he is provided with a warm meal, 2 sandwiches, and kaitlin nancy. Patient endorses back pain, denies SOB or dizziness. HR ST low 100s-1teens (improved from prior). BP 121/78 (also improved from prior). Call pierce within reach. Awaiting admission. Patient provided with warm blankets and fresh hospital gown.
--- NOTE | 2022-07-29 20:32 | PC.NURSE ---
patient continues to scream out profanities, inconsolable at times. he endorses pain everywere. MD Maldonado Mariee aware and to give prn methadone.
[2022-07-29] MEDS: methADONE HCl 20 MG/2 ML ORAL.CONC 10 MG PO (20:34)
[2022-07-29] MEDS: OLANZapine 5 MG TABLET PO (21:20)
--- NOTE | 2022-07-29 21:22 | PC.NURSE ---
patient again swearing aggressively at this RN, stating I'm gonna throw this urinal because you didn't help me! vitals as documented, aware, urinal emptied, and patient medicated with prn zyprexa. he remains in-between sleeping and yelling out Aggresively swearing, there is no in-between
--- NOTE | 2022-07-29 21:52 | HO.ADDICT_ITS ---
History of Present Illness Date of Service: 07/29/2022 Chief Complaint: sepsis Reason for Consult: OUD HPI Narrative: Patient is a 31 year old male known to this pattern chart writer via previous admissions to [facility] Currently medically admitted with sepsis and endocarditis. Seen by [facility] earlier and requesting to be started on methadone to tr eat withdrawals. Ordered and administered 20mg methadone. Patient seen by this pattern chart writer later in the afternoon. Alseep, but easily awaken. Appearing quite uncomfortable, moaning. Reporting that methadone helped withdrawal sx. Drowsy during interview. Encouraged by this pattern chart writer to sleep. Still unstably housed. Reports using btwn 10-15 bags of heroin daily. Treatment history has not changed from previous admissions. Past Psychiatric History: Not reviewed Review of Systems Review of Systems deffered Diagnostics Vital Signs (24Hr): Vital Signs - 24 hr 07/29/22 02:02 07/29/22 04:00 07/29/22 04:19 Temperature 100.5 F H 98.0 F Pulse Rate 79 99 93 Respiratory Rate 18 18 19 Blood Pressure 139/68 93/62 Pulse Oximetry 97 96 Oxygen Delivery Method Room Air Room Air 07/29/22 04:50 07/29/22 05:15 07/29/22 06:08 Temperature 97.8 F 97.8 F Pulse Rate 92 91 86 Respiratory Rate 14 17 16 Blood Pressure 89/52 L 88/55 L 93/62 Pulse Oximetry 95 95 95 Oxygen Delivery Method Room Air Room Air Room Air 07/29/22 06:35 07/29/22 07:41 07/29/22 08:58 Temperature 97.7 F 97.6 F Pulse Rate 83 89 84 Respiratory Rate 14 12 15 Blood Pressure 87/55 L 92/54 L 93/55 L Pulse Oximetry 93 95 94 Oxygen Delivery Method Room Air Room Air Room Air 07/29/22 10:48 07/29/22 12:38 07/29/22 14:30 Temperature 97.7 F Pulse Rate 85 86 Respiratory Rate 19 15 20 Blood Pressure 112/59 L 95/60 93/51 L Pulse Oximetry 100 95 Oxygen Delivery Method Room Air Room Air Room Air 07/29/22 15:39 07/29/22 19:06 07/29/22 20:33 Temperature 98.5 F 98.5 F Pulse Rate 98 113 H 100 Respiratory Rate 19 20 24 H Blood Pressure 99/66 117/88 125/73 Pulse Oximetry 98 93 97 Oxygen Delivery Method Room Air Room Air Room Air 07/29/22 21:21 Temperature Pulse Rate 115 H Respiratory Rate 21 H Blood Pressure 125/83 Pulse Oximetry 95 Oxygen Delivery Method Room Air BMI result Body Mass Index 23.5 Labs Results: 07/29/22 02:27 07/29/22 02:27 Labs: Laboratory Results - last 48 hr 07/29/22 07/29/22 07/29/22 02:27 02:27 02:27 WBC 16.4 H RBC 3.66 L Hgb 9.2 L Hct 28.6 L MCV 78.1 L MCH 25.1 L MCHC 32.2 RDW 20.6 H Plt Count 257 MPV 9.9 Immature Gran % (Auto) 1.0 H Neut % (Auto) 76.4 H Lymph % (Auto) 13.2 L Edmunds % (Auto) 8.1 Eos % (Auto) 0.7 Baso % (Auto) 0.6 Lymph # (Auto) 2.2 Edmunds # (Auto) 1.3 H Eos # (Auto) 0.1 Baso # (Auto) 0.1 Abs Immat Gran (auto) 0.16 H Absolute Neuts (auto) 12.5 H Absolute Nucleated RBC 0.000 Nucleated RBC % (auto) 0.0 ESR 28 H PT INR APTT Sodium 138 Potassium 4.0 Chloride 106 Carbon Dioxide 20 L Anion Gap 16 BUN 15 Creatinine 1.03 Estim Creat Clear Calc 95.3 Estimated GFR > 60 Random Glucose 77 Lactic Acid Calcium 7.9 L Total Bilirubin 1.9 H Direct Bilirubin 1.3 H AST 14 ALT 6 Alkaline Phosphatase 253 H Troponin I High Sens C-Reactive Protein 5.47 H Total Protein 6.6 Albumin 2.5 L Urine Color Urine Appearance Urine pH Ur Specific [place] Urine Protein Urine Glucose (UA) Urine Ketones Urine Blood Urine Nitrite Ur Leukocyte Esterase Urine RBC Urine WBC Ur Squamous Epith Cells Urine Bacteria Hyaline Casts Urine Opiates Screen Urine Fentanyl Screen Ur Barbiturates Screen Ur Phencyclidine Scrn Ur Amphetamines Screen U Benzodiazepines Scrn Urine Cocaine Screen U Marijuana (THC) Screen Influenza Type A (PCR) Influenza Type B (PCR) RSV RNA Qual (PCR) SARS-CoV-2 RNA (RT-PCR) 07/29/22 07/29/22 07/29/22 02:27 02:27 02:27 WBC RBC Hgb Hct MCV MCH MCHC RDW Plt Count MPV Immature Gran % (Auto) Neut % (Auto) Lymph % (Auto) Edmunds % (Auto) Eos % (Auto) Baso % (Auto) Lymph # (Auto) [place] # (Auto) Eos # (Auto) Baso # (Auto) Abs Immat Gran (auto) Absolute Neuts (auto) Absolute Nucleated RBC Nucleated RBC % (auto) ESR PT INR APTT Sodium Potassium Chloride Carbon Dioxide Anion Gap BUN Creatinine Estim Creat Clear Calc Estimated GFR Random Glucose Lactic Acid 0.9 Calcium Total Bilirubin Direct Bilirubin AST ALT Alkaline Phosphatase Troponin I High Sens 11.4 C-Reactive Protein Total Protein Albumin Urine Color Urine Appearance Urine pH Ur Specific [place] Urine Protein Urine Glucose (UA) Urine Ketones Urine Blood Urine Nitrite Ur Leukocyte Esterase Urine RBC Urine WBC Ur Squamous Epith Cells Urine Bacteria Hyaline Casts Urine Opiates Screen Urine Fentanyl Screen Ur Barbiturates Screen Ur Phencyclidine Scrn Ur Amphetamines Screen U Benzodiazepines Scrn Urine Cocaine Screen U Marijuana (THC) Screen Influenza Type A (PCR) NEGATIVE Influenza Type B (PCR) NEGATIVE RSV RNA Qual (PCR) NEGATIVE SARS-CoV-2 RNA (RT-PCR) NEGATIVE 07/29/22 07/29/22 07/29/22 02:35 02:35 09:25 WBC RBC Hgb Hct MCV MCH MCHC RDW Plt Count MPV Immature Gran % (Auto) Neut % (Auto) Lymph % (Auto) Ed[place] % (Auto) Eos % (Auto) Baso % (Auto) Lymph # (Auto) [place] # (Auto) Eos # (Auto) Baso # (Auto) Abs Immat Gran (auto) Absolute Neuts (auto) Absolute Nucleated RBC Nucleated RBC % (auto) ESR PT 19.8 H INR 1.7 H APTT 38.9 H Sodium Potassium Chloride Carbon Dioxide Anion Gap BUN Creatinine Estim Creat Clear Calc Estimated GFR Random Glucose Lactic Acid Calcium Total Bilirubin Direct Bilirubin AST ALT Alkaline Phosphatase Troponin I High Sens C-Reactive Protein Total Protein Albumin Urine Color Dark Yellow Urine Appearance Clear Urine pH 6.0 Ur Specific [place] 1.015 Urine Protein 30 (1+) H Urine Glucose (UA) Negative Urine Ketones Negative Urine Blood Large (3+) H Urine Nitrite Negative Ur Leukocyte Esterase Trace H Urine RBC >20 H Urine WBC 0-5 Ur Squamous Epith Cells 0-2 Urine Bacteria None Seen Hyaline Casts 0-2 Urine Opiates Screen POSITIVE H Urine Fentanyl Screen POSITIVE H Ur Barbiturates Screen Not Detected Ur Phencyclidine Scrn Not Detected Ur Amphetamines Screen Not Detected U Benzodiazepines Scrn Not Detected Urine Cocaine Screen POSITIVE H U Marijuana (THC) Screen Not Detected Influenza Type A (PCR) Influenza Type B (PCR) RSV RNA Qual (PCR) SARS-CoV-2 RNA (RT-PCR) Imaging Radiology Impressions: ITS Impressions Chest X-Ray 07/29/22 03:15 IMPRESSION: Mild interval improvement since 07/21/2022, with residual patchy bilateral opacities. Mental Status Exam Mental Status Exam Patient Appearance: Perspiring Level of Consciousness: Drowsy and Lethargic Medications Medications Current Medications Acetaminophen (Acetaminophen 325 Mg Tablet) 650 mg PO Q6H PRN PRN Reason: Pain, Mild (Pain Scale 1-3) Enoxaparin Sodium (Enoxaparin Sodium 80 Mg/0.8 Ml Syringe) 70 mg SUBCUT Q12H [facility] Last Admin: 07/29/22 20:38 Dose: Not Given Vancomycin HCl 1,000 mg/ (Sodium Chloride) 270 mls @ 270 mls/hr IV Q12H [facility] Last Infusion: 07/29/22 14:20 Dose: Infused Cefepime HCl 2 gm/ Sodium (Chloride) 50 mls @ 100 mls/hr IV Q8H [facility] Last Infusion: 07/29/22 21:14 Dose: Infused Methadone HCl (Methadone Hcl 20 Mg/2 Ml Oral.Conc) 10 mg PO ONCE PRN PRN Reason: Opiate Withdrawal Last Admin: 07/29/22 20:34 Dose: 10 mg Methadone HCl (Methadone Hcl 20 Mg/2 Ml Oral.Conc) 30 mg PO DAILY [facility] Olanzapine (Olanzapine 5 Mg Tablet) 5 mg PO ONCE PRN PRN Reason: anxiety/restlessness Last Admin: 07/29/22 21:20 Dose: 5 mg Ondansetron HCl (Ondansetron Hcl 4 Mg/2 Ml Vial) 4 mg IVPUSH Q8H PRN PRN Reason: Nausea and Vomiting Pharmacy Consult (Consult Rx Perform Med Rec) 1 each MISCELLANE ONCE PRN PRN Reason: Consult order Pharmacy Consult (Consult Rx Vancomycin Dosing) 1 each MISCELLANE DAILY PRN PRN Reason: Consult order Sodium Chloride (0.9 % Sodium Chloride Flush 3 Ml Syringe) 3 ml IVFLUSH QSHIFT [facility] Last Admin: 10/11/22 15:41 Dose: 3 ml Allergies Allergies Allergy/AdvReac Type Severity Reaction Status Date / Time No Known Allergies Allergy Verified 06/25/22 07:02 [No Known Allergies*] Assessment & Plan Assessment & Plan (1) Opioid use disorder, severe, dependence: Status: Acute Code(s): F11.20 - Opioid dependence, uncomplicated Assessment and Plan: * methadone 10mg X1 PRN for withdrawal * methadone 30mg in AM * patient very food focused (likely due to food insecurity) encouraged to eat slowly small amounts and be patient with staff * will follow up in AM I spent ___35___ minutes with the patient and/or on the patient floor today, greater than?50% of which was spent counseling/coordinating care. [facility] Past Medical History Medical History Anasarca Bacteremia Bacteremia Endocarditis HCV (hepatitis C virus) Pulmonary embolism Right heart failure Steatosis, liver Tricuspid valve stenosis Surgical History Surgical History History of tricuspid valve replacement with bioprosthetic valve Social History Social History Household Members: None Household Members Other:: none. homeless Housing: Homeless Do you presently have visiting nurse or other home services: No Unable to assess alcohol history related to: Refusing to respond Alcohol intake: current Alcohol intake frequency: 3 or more drinks per day Patient Tobacco Use Status: Tobacco use Unknown Tobacco use type: Cigarette Cigarette Packs Per Day: 1 Cigarettes Per Day: 20.0 Years Smoked: 10 Second Hand Smoke Exposure: No Substance Use Type: Heroin Advance Directives: No Advance Directives Date on File: 04/16/21 service: No Current occupational status: unemployed
[2022-07-29] MEDS: Acetaminophen 325 MG TABLET 650 MG PO (22:11)
[2022-07-30] VITALS (11 sets, daily range): BP systolic 95–135; BP diastolic 63–87; PULSE 86–114; RESP 16–24; TEMP 36.6–38; O2SAT 94–100
[2022-07-30] MEDS: cefEPime HCl 2 GM in 0.9 % Sodium Chloride 50 ML IV ×3 (05:35→21:01)
[2022-07-30 06:17] LABS: Glucose, Whole Blood 92 mg/dL (60-115)
[2022-07-30] MEDS: methADONE HCl 20 MG/2 ML ORAL.CONC 30 MG PO (11:22)
--- NOTE | 2022-07-30 12:00 | P.PNIM_ITS ---
Subjective Subjective Date of Service: 07/30/22 Interval History: cc: found on street appearing unwell interval history: weakness Cardiovascular Cardiovascular: Reports no additional cardiovascular complaints Respiratory Respiratory: Reports no additional respiratory complaints Physical Exam Vital Signs: Vital Signs: Last Vital Signs Temp 98 F 07/30/22 03:09 Pulse 98 07/30/22 10:51 Resp 24 H 07/30/22 10:51 BP 113/77 07/30/22 10:51 Pulse Ox 94 07/30/22 10:51 O2 Del Method 07/30/22 10:51 BMI result Body Mass Index 23.5 General: leathrgic, not answering questions, ill appearing Resp: Crackles bilateral, no accessory muscles used CVS: S1,S2,RRR GI: soft, non tender, non distended Neuro: motor grossly intact, lethargic Psych: appropriate affect, appropriate insight Objective Data Active Medications Acetaminophen (Acetaminophen 325 Mg Tablet) 650 mg PO Q6H PRN PRN Reason: Pain, Mild (Pain Scale 1-3) Last Admin: 07/29/22 22:11 Dose: 650 mg Documented By: ZAY Enoxaparin Sodium (Enoxaparin Sodium 80 Mg/0.8 Ml Syringe) 70 mg SUBCUT Q12H [facility] Last Admin: 07/30/22 11:24 Dose: Not Given Documented By: WAQAR Non-Admin Reason: Patient Refused Cefepime HCl 2 gm/ Sodium (Chloride) 50 mls @ 100 mls/hr IV Q8H [facility] Last Infusion: 07/30/22 06:52 Dose: 0 mls/hr Documented By: ZAY Methadone HCl (Methadone Hcl 20 Mg/2 Ml Oral.Conc) 10 mg PO ONCE PRN PRN Reason: Opiate Withdrawal Last Admin: 07/29/22 20:34 Dose: 10 mg Documented By: ZAY Methadone HCl (Methadone Hcl 20 Mg/2 Ml Oral.Conc) 30 mg PO DAILY [facility] Last Admin: 07/30/22 11:22 Dose: 30 mg Documented By: WAQAR Olanzapine (Olanzapine 5 Mg Tablet) 5 mg PO ONCE PRN PRN Reason: anxiety/restlessness Last Admin: 07/29/22 21:20 Dose: 5 mg Documented By: ZAY Ondansetron HCl (Ondansetron Hcl 4 Mg/2 Ml Vial) 4 mg IVPUSH Q8H PRN PRN Reason: Nausea and Vomiting Pharmacy Consult (Consult Rx Perform Med Rec) 1 each MISCELLANE ONCE PRN PRN Reason: Consult order Sodium Chloride (0.9 % Sodium Chloride Flush 3 Ml Syringe) 3 ml IVFLUSH QSHIFT [facility] Last Admin: 07/30/22 08:38 Dose: Not Given Documented By: LY Non-Admin Reason: IV Running Labs CBC & Chem 7: 07/29/22 02:27 07/29/22 02:27 Labs: Laboratory Results - last 24 hr 07/30/22 06:14 POC Glucose 92 Microbiology Microbiology Results: Microbiology 07/29/22 02:27 Blood Culture - Preliminary Blood - Venous No growth after 24 hours. 07/29/22 02:27 Blood Culture - Preliminary Blood - Venous No growth after 24 hours. 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 He was found to be septic Sepsis secondary to aspiration pneumonia continue cefepime no history of MRSA, will dc vanc blood culutres negative so far, follow up final Pulmonary [place]oli on [place] [facility] [place] -- documented non-compliance in [place] [facility] [place] holding xarelto and use lovenox 1mg/kg BID for now R Hand, 2nd digit osteo noted on XR [place] [facility], follow up repeat follow up ID Cirrhosis / untreated hep C Bili improved compared to previous values would need outpatient f/u Polysubstance abuse MAT for opiate use disorder -- he declines at this time; will continue to encourage treatment Full Code DVT pptx, Lovenox ? reason for continued hospitalization:ill appearing, awaiting final cultures, antibiotics for pneumonia under close monitoring as at risk for decompensation Quality Stroke Does the patient have a stroke diagnosis?: No VTE Prior VTE?: No VTE Risk Level:: Medical - moderate - high VTE Device Contraindication: Treatment Not Indicated VTE Drug Contraindication: N/A - Med Ordered
--- NOTE | 2022-07-30 14:12 | PC.NURSE ---
PT WILL BE TRANSFER TO [facility] REPORT GIVEN, TOLERATING PO, USING URINAL. HAS BEEN NON COOPERATIVE WITH LAB WORK AND PT CARE, OFTEN YELLS OUT DEMANDING FOOD
[2022-07-30] MEDS: 0.9 % Sodium Chloride Flush 3 ML SYRINGE IVFLUSH ×2 (15:03→21:04)
--- NOTE | 2022-07-30 16:51 | HO.ADDICTPRO ---
Subjective Subjective Date of Service: 07/30/22 Reason For Visit: sepsis Interim History: Patient seen in follow up. Methadone 30mg admininstered today Irritable, voicing numerous complaints--all mainly around food and not getting it fast enough. Encouraged patient to use appropriate language when requesting things, reminded him he is in a hospital setting and many aroung him are sick and healing. Profanities and aggressive language is not appropriate. Patient verbalized understanding. Discussed withdrawal sx. Patient reporting methadone dose is effective and addressing withdrawal sx. Would like to continue at this dose. More awake today. Denies nausea, chills, body aches. Did not appear diaphoretic Review of Systems Constitutional: Reports as per [facility] Mental Status Exam Mental Status Exam Patient Appearance: Disheveled Patient Orientation: Person, Place and Situation Level of Consciousness: Awake and Alert Patient Behavior: Appropriate and Talkative Mood Description: Angry Affect Description: Hostile (irritable) Diagnostics Vital Signs (24Hr): Vital Signs - 24 hr 07/29/22 19:06 07/29/22 20:33 07/29/22 21:21 Temperature 98.5 F Pulse Rate 113 H 100 115 H Pulse Rate [Monitor] Respiratory Rate 20 24 H 21 H Blood Pressure 117/88 125/73 125/83 Pulse Oximetry 93 97 95 Oxygen Delivery Method Room Air Room Air Room Air 07/29/22 22:11 07/29/22 22:29 07/29/22 22:51 Temperature 101 F H Pulse Rate 117 H 115 H Pulse Rate [Monitor] 108 H Respiratory Rate 24 H 22 H Blood Pressure 113/75 114/73 Pulse Oximetry 97 93 Oxygen Delivery Method Room Air Room Air 07/29/22 23:16 07/30/22 00:14 07/30/22 00:42 Temperature Pulse Rate 108 H 103 H Pulse Rate [Monitor] Respiratory Rate 22 H 21 H 22 H Blood Pressure 120/67 112/67 Pulse Oximetry 94 95 Oxygen Delivery Method Room Air Room Air 07/30/22 01:45 07/30/22 03:09 07/30/22 03:30 Temperature 98 F Pulse Rate 96 93 Pulse Rate [Monitor] Respiratory Rate 23 H 22 H Blood Pressure 102/63 110/83 Pulse Oximetry 95 94 Oxygen Delivery Method Room Air Room Air 07/30/22 05:35 07/30/22 10:51 07/30/22 14:28 Temperature 98.3 F Pulse Rate 86 98 111 H Pulse Rate [Monitor] Respiratory Rate 24 H 24 H 20 Blood Pressure 95/64 113/77 125/81 Pulse Oximetry 97 94 94 Oxygen Delivery Method Room Air Room Air Room Air 07/30/22 16:00 Temperature 99.7 F Pulse Rate 108 H Pulse Rate [Monitor] Respiratory Rate 16 Blood Pressure 124/78 Pulse Oximetry 100 Oxygen Delivery Method Room Air BMI result Body Mass Index 23.5 Labs Results: 07/29/22 02:27 07/29/22 02:27 Labs: Laboratory Results - last 48 hr 07/29/22 07/29/22 07/29/22 02:27 02:27 02:27 WBC 16.4 H RBC 3.66 L Hgb 9.2 L Hct 28.6 L MCV 78.1 L MCH 25.1 L MCHC 32.2 RDW 20.6 H Plt Count 257 MPV 9.9 Immature Gran % (Auto) 1.0 H Neut % (Auto) 76.4 H Lymph % (Auto) 13.2 L Coles % (Auto) 8.1 Eos % (Auto) 0.7 Baso % (Auto) 0.6 Lymph # (Auto) 2.2 Coles # (Auto) 1.3 H Eos # (Auto) 0.1 Baso # (Auto) 0.1 Abs Immat Gran (auto) 0.16 H Absolute Neuts (auto) 12.5 H Absolute Nucleated RBC 0.000 Nucleated RBC % (auto) 0.0 ESR 28 H PT INR APTT Sodium 138 Potassium 4.0 Chloride 106 Carbon Dioxide 20 L Anion Gap 16 BUN 15 Creatinine 1.03 Estim Creat Clear Calc 95.3 Estimated GFR > 60 POC Glucose Random Glucose 77 Lactic Acid Calcium 7.9 L Total Bilirubin 1.9 H Direct Bilirubin 1.3 H AST 14 ALT 6 Alkaline Phosphatase 253 H Troponin I High Sens C-Reactive Protein 5.47 H Total Protein 6.6 Albumin 2.5 L Urine Color Urine Appearance Urine pH Ur Specific [place] Urine Protein Urine Glucose (UA) Urine Ketones Urine Blood Urine Nitrite Ur Leukocyte Esterase Urine RBC Urine WBC Ur Squamous Epith Cells Urine Bacteria Hyaline Casts Urine Opiates Screen Urine Fentanyl Screen Ur Barbiturates Screen Ur Phencyclidine Scrn Ur Amphetamines Screen U Benzodiazepines Scrn Urine Cocaine Screen U Marijuana (THC) Screen Influenza Type A (PCR) Influenza Type B (PCR) RSV RNA Qual (PCR) SARS-CoV-2 RNA (RT-PCR) 07/29/22 07/29/22 07/29/22 02:27 02:27 02:27 WBC RBC Hgb Hct MCV MCH MCHC RDW Plt Count MPV Immature Gran % (Auto) Neut % (Auto) Lymph % (Auto) Coles % (Auto) Eos % (Auto) Baso % (Auto) Lymph # (Auto) Coles # (Auto) Eos # (Auto) Baso # (Auto) Abs Immat Gran (auto) Absolute Neuts (auto) Absolute Nucleated RBC Nucleated RBC % (auto) ESR PT INR APTT Sodium Potassium Chloride Carbon Dioxide Anion Gap BUN Creatinine Estim Creat Clear Calc Estimated GFR POC Glucose Random Glucose Lactic Acid 0.9 Calcium Total Bilirubin Direct Bilirubin AST ALT Alkaline Phosphatase Troponin I High Sens 11.4 C-Reactive Protein Total Protein Albumin Urine Color Urine Appearance Urine pH Ur Specific [place] Urine Protein Urine Glucose (UA) Urine Ketones Urine Blood Urine Nitrite Ur Leukocyte Esterase Urine RBC Urine WBC Ur Squamous Epith Cells Urine Bacteria Hyaline Casts Urine Opiates Screen Urine Fentanyl Screen Ur Barbiturates Screen Ur Phencyclidine Scrn Ur Amphetamines Screen U Benzodiazepines Scrn Urine Cocaine Screen U Marijuana (THC) Screen Influenza Type A (PCR) NEGATIVE Influenza Type B (PCR) NEGATIVE RSV RNA Qual (PCR) NEGATIVE SARS-CoV-2 RNA (RT-PCR) NEGATIVE 07/29/22 07/29/22 07/29/22 02:35 02:35 09:25 WBC RBC Hgb Hct MCV MCH MCHC RDW Plt Count MPV Immature Gran % (Auto) Neut % (Auto) Lymph % (Auto) Coles % (Auto) Eos % (Auto) Baso % (Auto) Lymph # (Auto) Coles # (Auto) Eos # (Auto) Baso # (Auto) Abs Immat Gran (auto) Absolute Neuts (auto) Absolute Nucleated RBC Nucleated RBC % (auto) ESR PT 19.8 H INR 1.7 H APTT 38.9 H Sodium Potassium Chloride Carbon Dioxide Anion Gap BUN Creatinine Estim Creat Clear Calc Estimated GFR POC Glucose Random Glucose Lactic Acid Calcium Total Bilirubin Direct Bilirubin AST ALT Alkaline Phosphatase Troponin I High Sens C-Reactive Protein Total Protein Albumin Urine Color Dark Yellow Urine Appearance Clear Urine pH 6.0 Ur Specific [place] 1.015 Urine Protein 30 (1+) H Urine Glucose (UA) Negative Urine Ketones Negative Urine Blood Large (3+) H Urine Nitrite Negative Ur Leukocyte Esterase Trace H Urine RBC >20 H Urine WBC 0-5 Ur Squamous Epith Cells 0-2 Urine Bacteria None Seen Hyaline Casts 0-2 Urine Opiates Screen POSITIVE H Urine Fentanyl Screen POSITIVE H Ur Barbiturates Screen Not Detected Ur Phencyclidine Scrn Not Detected Ur Amphetamines Screen Not Detected U Benzodiazepines Scrn Not Detected Urine Cocaine Screen POSITIVE H U Marijuana (THC) Screen Not Detected Influenza Type A (PCR) Influenza Type B (PCR) RSV RNA Qual (PCR) SARS-CoV-2 RNA (RT-PCR) 07/30/22 06:14 WBC RBC Hgb Hct MCV MCH MCHC RDW Plt Count MPV Immature Gran % (Auto) Neut % (Auto) Lymph % (Auto) Coles % (Auto) Eos % (Auto) Baso % (Auto) Lymph # (Auto) Coles # (Auto) Eos # (Auto) Baso # (Auto) Abs Immat Gran (auto) Absolute Neuts (auto) Absolute Nucleated RBC Nucleated RBC % (auto) ESR PT INR APTT Sodium Potassium Chloride Carbon Dioxide Anion Gap BUN Creatinine Estim Creat Clear Calc Estimated GFR POC Glucose 92 Random Glucose Lactic Acid Calcium Total Bilirubin Direct Bilirubin AST ALT Alkaline Phosphatase Troponin I High Sens C-Reactive Protein Total Protein Albumin Urine Color Urine Appearance Urine pH Ur Specific [place] Urine Protein Urine Glucose (UA) Urine Ketones Urine Blood Urine Nitrite Ur Leukocyte Esterase Urine RBC Urine WBC Ur Squamous Epith Cells Urine Bacteria Hyaline Casts Urine Opiates Screen Urine Fentanyl Screen Ur Barbiturates Screen Ur Phencyclidine Scrn Ur Amphetamines Screen U Benzodiazepines Scrn Urine Cocaine Screen U Marijuana (THC) Screen Influenza Type A (PCR) Influenza Type B (PCR) RSV RNA Qual (PCR) SARS-CoV-2 RNA (RT-PCR) Imaging Radiology Impressions: ITS Impressions Chest X-Ray 07/29/22 03:15 IMPRESSION: Mild interval improvement since 07/21/2022, with residual patchy bilateral opacities. Finger X-Ray 07/29/22 10:09 IMPRESSION: Normal PA view of the right hand. If there is clinical suspicion of osteomyelitis of the second finger, additional finger x-rays would be recommended. Medications Medications Current Medications Acetaminophen (Acetaminophen 325 Mg Tablet) 650 mg PO Q6H PRN PRN Reason: Pain, Mild (Pain Scale 1-3) Last Admin: 07/29/22 22:11 Dose: 650 mg Enoxaparin Sodium (Enoxaparin Sodium 80 Mg/0.8 Ml Syringe) 70 mg SUBCUT Q12H [facility] Last Admin: 07/30/22 11:24 Dose: Not Given Cefepime HCl 2 gm/ Sodium (Chloride) 50 mls @ 100 mls/hr IV Q8H [facility] Last Infusion: 07/30/22 15:02 Dose: Infused Methadone HCl (Methadone Hcl 20 Mg/2 Ml Oral.Conc) 10 mg PO ONCE PRN PRN Reason: Opiate Withdrawal Last Admin: 07/29/22 20:34 Dose: 10 mg Methadone HCl (Methadone Hcl 20 Mg/2 Ml Oral.Conc) 30 mg PO DAILY [facility] Last Admin: 07/30/22 11:22 Dose: 30 mg Olanzapine (Olanzapine 5 Mg Tablet) 5 mg PO ONCE PRN PRN Reason: anxiety/restlessness Last Admin: 07/29/22 21:20 Dose: 5 mg Ondansetron HCl (Ondansetron Hcl 4 Mg/2 Ml Vial) 4 mg IVPUSH Q8H PRN PRN Reason: Nausea and Vomiting Pharmacy Consult (Consult Rx Perform Med Rec) 1 each MISCELLANE ONCE PRN PRN Reason: Consult order Sodium Chloride (0.9 % Sodium Chloride Flush 3 Ml Syringe) 3 ml IVFLUSH QSHIFT [facility] Last Admin: 07/30/22 15:03 Dose: 3 ml Allergies Allergies Allergy/AdvReac Type Severity Reaction Status Date / Time No Known Allergies Allergy Verified 06/25/22 07:02 [No Known Allergies*] Assessment & Plan Assessment & Plan (1) Opioid use disorder, severe, dependence: Status: Acute Code(s): F11.20 - Opioid dependence, uncomplicated Assessment and Plan: continue methadone 30mg daily with 10mg PRN will continue to follow I spent __25____ minutes with the patient and/or on the patient floor today, greater than?50% of which was spent counseling/coordinating care.
[2022-07-31 03:09] VITALS: BP 142/86; PULSE 114; RESP 15; TEMP 37.3; O2SAT 94
[2022-07-31] MEDS: cefEPime HCl 2 GM in 0.9 % Sodium Chloride 50 ML IV ×3 (06:06→20:30)
[2022-07-31 07:16] LABS: Hematocrit 30.8 % (42.0-52.0); Hemoglobin 9.7 g/dl (14.0-18.0); Mean Corpuscular HGB Conc 31.5 g/dl (31.0-36.0); Mean Corpuscular Hemoglobin 24.9 pg (27.0-33.0); Mean Corpuscular Volume 79.2 fL (80.0-98.0); Mean Platelet Volume 9.9 fL (9.4-12.4); Platelet Count 203 X10*3/uL (160-400); Red Blood Count 3.89 X10*6/uL (4.60-5.80); Red Cell Distribution Width 22.3 % (11.0-16.0); White Blood Count 12.8 X10*3/uL (4.8-10.8)
[2022-07-31 07:30] LABS: Anion Gap 16 (12-20); Blood Urea Nitrogen 16 mg/dL (9-16); Calcium 7.9 mg/dL (8.4-10.2); Carbon Dioxide 15 mmol/L (22-29); Chloride 111 mmol/L (96-108); Creatinine Clr Calc Pharmacy 96.3; Estimated Glomerular Filt Rate > 60; Glucose Fasting 88 mg/dL (60-99); Potassium 4.2 mmol/L (3.3-5.1); Sodium 138 mmol/L (135-145)
[2022-07-31 07:58] VITALS: BP 133/87; PULSE 104; RESP 20; TEMP 37; O2SAT 95
[2022-07-31] MEDS: methADONE HCl 20 MG/2 ML ORAL.CONC 30 MG PO (08:40)
[2022-07-31] MEDS: 0.9 % Sodium Chloride Flush 3 ML SYRINGE IVFLUSH ×3 (08:40→20:28)
--- NOTE | 2022-07-31 09:44 | HO.PM.IMPN ---
Subjective Subjective Date of Service: 07/31/22 Interval History: cc: found on street appearing unwell interval history: weakness Cardiovascular Cardiovascular: Reports no additional cardiovascular complaints Respiratory Respiratory: Reports no additional respiratory complaints Physical Exam Vital Signs: Vital Signs: Last Vital Signs Temp 98.6 F 07/31/22 07:58 Pulse 104 H 07/31/22 07:58 Resp 20 07/31/22 07:58 BP 133/87 07/31/22 07:58 Pulse Ox 95 07/31/22 07:58 O2 Del Method 07/31/22 07:58 BMI result Body Mass Index 23.5 General: leathrgic, not answering questions, ill appearing Resp: Crackles bilateral, no accessory muscles used CVS: S1,S2,RRR GI: soft, non tender, non distended Neuro: motor grossly intact, lethargic Psych: appropriate affect, appropriate insight Objective Data Active Medications Acetaminophen (Acetaminophen 325 Mg Tablet) 650 mg PO Q6H PRN PRN Reason: Pain, Mild (Pain Scale 1-3) Last Admin: 07/29/22 22:11 Dose: 650 mg Documented By: ZAY Enoxaparin Sodium (Enoxaparin Sodium 80 Mg/0.8 Ml Syringe) 70 mg SUBCUT Q12H [facility] Last Admin: 07/30/22 21:03 Dose: Not Given Documented By: ARCADIO Non-Admin Reason: Patient Refused Cefepime HCl 2 gm/ Sodium (Chloride) 50 mls @ 100 mls/hr IV Q8H [facility] Last Infusion: 07/31/22 07:16 Dose: 0 mls/hr Documented By: ARCADIO Methadone HCl (Methadone Hcl 20 Mg/2 Ml Oral.Conc) 10 mg PO ONCE PRN PRN Reason: Opiate Withdrawal Last Admin: 07/29/22 20:34 Dose: 10 mg Documented By: ZAY Methadone HCl (Methadone Hcl 20 Mg/2 Ml Oral.Conc) 30 mg PO DAILY [facility] Last Admin: 07/31/22 08:40 Dose: 30 mg Documented By: KALYANI Olanzapine (Olanzapine 5 Mg Tablet) 5 mg PO ONCE PRN PRN Reason: anxiety/restlessness Last Admin: 07/29/22 21:20 Dose: 5 mg Documented By: ZAY Ondansetron HCl (Ondansetron Hcl 4 Mg/2 Ml Vial) 4 mg IVPUSH Q8H PRN PRN Reason: Nausea and Vomiting Pharmacy Consult (Consult Rx Perform Med Rec) 1 each MISCELLANE ONCE PRN PRN Reason: Consult order Sodium Chloride (0.9 % Sodium Chloride Flush 3 Ml Syringe) 3 ml IVFLUSH QSHIFT [facility] Last Admin: 07/31/22 08:40 Dose: 3 ml Documented By: KALYANI Labs CBC & Chem 7: 07/31/22 06:05 07/31/22 06:05 Labs: Laboratory Results - last 24 hr 07/31/22 07/31/22 06:05 06:05 MCV 79.2 L MCH 24.9 L MCHC 31.5 RDW 22.3 H Plt Count 203 MPV 9.9 Absolute Nucleated RBC 0.000 Nucleated RBC % (auto) 0.0 Anion Gap 16 Estim Creat Clear Calc 96.3 Estimated GFR > 60 Fasting Glucose 88 Calcium 7.9 L Microbiology Microbiology Results: Microbiology 07/29/22 02:27 Blood Culture - Preliminary Blood - Venous No growth after 48 hours. 07/29/22 02:27 Blood Culture - Preliminary Blood - Venous No growth after 48 hours. 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 He was found to be septic Sepsis secondary to aspiration pneumonia continue cefepime, will add doxy no history of MRSA, will dc vanc blood culutres negative so far, follow up final Pulmonary emboli on most recent CTA at [facility] and previously in 2020 -- documented non-compliance in the [facility] records holding xarelto and use lovenox 1mg/kg BID for now R Hand, 2nd digit osteo unlikely noted on XR on [facility], XR now showing no evidence, c/w low ESR Cirrhosis / untreated hep C Bili improved compared to previous values would need outpatient f/u Polysubstance abuse with opiate withdrawal MAT for opiate use disorder -- he declines at this time; will continue to encourage treatment Full Code DVT pptx, Lovenox ? reason for continued hospitalization:iv abx for sepsis, MAT for withdrawal symptoms Quality Stroke Does the patient have a stroke diagnosis?: No VTE Prior VTE?: No VTE Risk Level:: Medical - moderate - high VTE Device Contraindication: Treatment Not Indicated VTE Drug Contraindication: N/A - Med Ordered
[2022-07-31 12:00] VITALS: BP 124/88; PULSE 118; RESP 20; TEMP 36.3; O2SAT 98
--- NOTE | 2022-07-31 12:25 | MHC.CM.PN ---
Addendum entered by Marija Barbosa 07/31/22 13:26: VERIFIED JEM CHAVEZ [employer] IS PROVIDER AT [facility]. Original Note: CM MET WITH PATIENT, PATIENT DECLINES MOST OF INTAKE QUESTIONS. PT IS HOMELESS, HAS NO TRANSPORTATION. NO HCP AND DECLINES TO COMPLETE ONE AT THIS TIME. UNSURE IF COVID VAXXED. UNSURE OF PCP THOUGH JEM CHAVEZ IS LISTED. WILL VERIFY. DP: TO BE DETERMINED, CM WILL FOLLOW.
[2022-07-31 15:08] VITALS: BP 123/79; PULSE 113; RESP 20; TEMP 37.1; O2SAT 96
--- NOTE | 2022-07-31 16:19 | MHC.CM.PN ---
patient's mother Brittany called and requested a letter stating that her son was here at [facility], letter written and left a nurses station to be picked up. Brittany aware
[2022-07-31] MEDS: Acetaminophen 325 MG TABLET 650 MG PO (20:28)
[2022-08-01] MEDS: cefEPime HCl 2 GM in 0.9 % Sodium Chloride 50 ML IV ×3 (05:51→22:19)
[2022-08-01 08:00] VITALS: BP 136/94; PULSE 112; RESP 20; TEMP 36.9; O2SAT 98
[2022-08-01] MEDS: methADONE HCl 20 MG/2 ML ORAL.CONC 30 MG PO (08:36)
[2022-08-01] MEDS: 0.9 % Sodium Chloride Flush 3 ML SYRINGE IVFLUSH ×3 (08:36→22:30)
--- NOTE | 2022-08-01 08:59 | P.PNIM_ITS ---
Subjective Subjective Date of Service: 08/01/22 Interval History: cc: found on street appearing unwell interval history: weakness Cardiovascular Cardiovascular: Reports no additional cardiovascular complaints Respiratory Respiratory: Reports no additional respiratory complaints Physical Exam Vital Signs: Vital Signs: Last Vital Signs Temp 98.4 F 08/01/22 08:00 Pulse 112 H 08/01/22 08:00 Resp 20 08/01/22 08:00 BP 136/94 H 08/01/22 08:00 Pulse Ox 98 08/01/22 08:00 O2 Del Method 08/01/22 08:00 BMI result Body Mass Index 23.5 General: alert oriented times 3, overall ill appearing Resp: Crackles bilateral, no accessory muscles used CVS: S1,S2,RRR GI: soft, non tender, non distended Neuro: motor grossly intact, alert Psych: appropriate affect, appropriate insight Objective Data Active Medications Acetaminophen (Acetaminophen 325 Mg Tablet) 650 mg PO Q6H PRN PRN Reason: Pain, Mild (Pain Scale 1-3) Last Admin: 07/31/22 20:28 Dose: 650 mg Documented By: DAMIAN Doxycycline Hyclate (Doxycycline Hyclate 100 Mg Tablet) 100 mg PO Q12H [facility] Last Admin: 08/01/22 08:36 Dose: 100 mg Documented By: ANNA Enoxaparin Sodium (Enoxaparin Sodium 80 Mg/0.8 Ml Syringe) 70 mg SUBCUT Q12H [facility] Last Admin: 08/01/22 08:36 Dose: Not Given Documented By: ANNA Non-Admin Reason: Patient Refused Cefepime HCl 2 gm/ Sodium (Chloride) 50 mls @ 100 mls/hr IV Q8H [facility] Last Infusion: 08/01/22 06:27 Dose: 0 mls/hr Documented By: DAMIAN Methadone HCl (Methadone Hcl 20 Mg/2 Ml Oral.Conc) 10 mg PO ONCE PRN PRN Reason: Opiate Withdrawal Last Admin: 07/29/22 20:34 Dose: 10 mg Documented By: DEMARCO-NICK Methadone HCl (Methadone Hcl 20 Mg/2 Ml Oral.Conc) 30 mg PO DAILY [facility] Last Admin: 08/01/22 08:36 Dose: 30 mg Documented By: ANNA Olanzapine (Olanzapine 5 Mg Tablet) 5 mg PO ONCE PRN PRN Reason: anxiety/restlessness Last Admin: 07/29/22 21:20 Dose: 5 mg Documented By: ZAY Ondansetron HCl (Ondansetron Hcl 4 Mg/2 Ml Vial) 4 mg IVPUSH Q8H PRN PRN Reason: Nausea and Vomiting Pharmacy Consult (Consult Rx Perform Med Rec) 1 each MISCELLANE ONCE PRN PRN Reason: Consult order Sodium Chloride (0.9 % Sodium Chloride Flush 3 Ml Syringe) 3 ml IVFLUSH QSHIFT [facility] Last Admin: 08/01/22 08:36 Dose: 3 ml Documented By: ANNA Labs CBC & Chem 7: 07/31/22 06:05 07/31/22 06:05 Assessment and Plan (1) Sepsis: Status: Acute Plan 31 yo M with a PMH of multiple complications( 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 He was found to be septic Sepsis secondary to aspiration pneumonia continue cefepime, doxy no history of MRSA, will dc vanc blood culutres negative so far, follow up final Pulmonary emboli on most recent CTA at [facility] and previously in 2019 -- documented non-compliance in the [facility] records holding xarelto and use lovenox 1mg/kg BID for now R Hand, 2nd digit osteo unlikely noted on XR on [facility], XR now showing no evidence, c/w low ESR Cirrhosis / untreated hep C Bili improved compared to previous values would need outpatient f/u Polysubstance abuse with opiate withdrawal MAT for opiate use disorder -- he declines at this time; will continue to encourage treatment Full Code DVT pptx, Lovenox ? reason for continued hospitalization:iv abx for sepsis, MAT for withdrawal symptoms Quality Stroke Does the patient have a stroke diagnosis?: No VTE Prior VTE?: No VTE Risk Level:: Medical - moderate - high VTE Device Contraindication: Treatment Not Indicated VTE Drug Contraindication: N/A - Med Ordered
[2022-08-01 11:45] VITALS: BP 113/82; PULSE 107; RESP 20; TEMP 36.6; O2SAT 96
--- NOTE | 2022-08-01 12:40 | MHC.CM.PN ---
per roundsptmay be dcd tomorrow plan is for home
--- NOTE | 2022-08-01 14:35 | PC.NURSE ---
report received from overnight RN. Pt refusing care this morning. administrative underwriter per DEC. Pt encouraged to call for help. Call pierce within place, safety precautions taken.
[2022-08-01 15:31] VITALS: BP 112/69; PULSE 104; RESP 17; TEMP 37.3; O2SAT 97
[2022-08-01] MEDS: Acetaminophen 325 MG TABLET 650 MG PO (18:37)
[2022-08-01 18:57] VITALS: BP 133/83; PULSE 116; RESP 16; TEMP 35.8; O2SAT 95
[2022-08-01] MEDS: traMADoL HCL 50 MG TABLET PO (20:28)
[2022-08-01] MEDS: Enoxaparin Sodium 80 MG/0.8 ML SYRINGE 70 MG SUBCUT (22:20)
[2022-08-02] MEDS: Acetaminophen 325 MG TABLET 650 MG PO (00:56)
[2022-08-02 03:59] VITALS: BP 114/60; PULSE 101; RESP 15; TEMP 37.2; O2SAT 96
[2022-08-02] MEDS: cefEPime HCl 2 GM in 0.9 % Sodium Chloride 50 ML IV (06:12)
[2022-08-02 07:18] VITALS: BP 117/72; PULSE 100; RESP 17; TEMP 37.2; O2SAT 96
[2022-08-02] MEDS: 0.9 % Sodium Chloride Flush 3 ML SYRINGE IVFLUSH (09:05)
[2022-08-02] MEDS: methADONE HCl 20 MG/2 ML ORAL.CONC 30 MG PO (09:05)
[2022-08-02 11:25] VITALS: BP 118/77; PULSE 115; RESP 17; TEMP 37.2; O2SAT 96
--- NOTE | 2022-08-02 11:57 | P.DS_ITS ---
DS: Providers Provider Date of Service: 08/02/22 Date of admission: 07/29/22 09:09 Primary care physician: SCOTTIE Phillips Consults: 07/29/22 13:51 Addiction Medicine Routine Consulting Provider: Tami Luna Reason for consultation: polysubstance abuse, interested in MAT DS: Diagnosis Discharge Diagnosis (1) Sepsis: Status: Acute DS: Summary Hospital Course Hospital Course: from initial hpi: This is a 31 year old male with a PMH (obtained from [facility] [place] of most recent hospitalization June 2022) of polysubstance abuse (including IV opiates, cocaine, alcohol and tobacco) with resultant complications including 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 after he was found on the streets. The patient was recently admitted to [facility] on 07/16 for evaluation of chest pain where he was found to have multiple issues including hypotenstion, LUCERO, septic shock secondary to GBS bacteremia (initially requiring pressor support), PE/Septic pulmonary emobli to lung and spleen, LUCERO and suspected osteo of the R 2nd digit. THe patient was treated with pressors and IV antibiotics + IV heparin drip. He improved but was not medically ready for discharge as his blood cultures remains positive. Unfortunately he signed out AMA from [facility] on 07/20/22. Of note, the patient had presented to [facility] ED on the 07/21/22 for chest pain with plans for admission, but left AMA from the ED. Upon arrival to [facility] ED today, the patient was noted to be hypotensive. His CXR showed patchy bilateral opacities which were improved from the cxr om 07/21/22. He was given IV (sepsis 30 cc/kg bolus + 2L additional). BP remained borderline and per ED provider -- case was d/w cigar tobacco processing supervisor? who felt patient stable for floor admission. Pt is seen and examined around 9AM. He is awake and alert. He reports chest pain with inspiration. His main complaint currently is being hungry and is requested food. He is willing to be admitted for treatment at this time. In regards to other symptopms, he does not divulge much, stating he is hungry right now. He reports last use about 4 hours prior to ED arrival. hopsital course: Patient was admitted for sepsis secondary to aspiration pneumonia in setting of recent group B strep bacteremia with septic pulmonary emboli. Patient was treated with IV cefepime and doxycycline, he was given Lovenox 1 milligram/kilogram b.i.d. on previous admission to [facility] there is question of right hand 2nd digit osteomyelitis, x-ray and [facility] was negative and patient had a low ESR making osteomyelitis unlikely. For hep atitis C with cirrhosis outpatient follow-up was recommended. Patient has opiate dependence that was complicated by opiate withdrawal, he was given methadone with improvement. He should follow up outpatient. Patient is anxious to leave the hospital, ideally should continue IV antibiotic therapy for recent group B strep bacteremia, however, patient unlikely to tolerate prolonged admission and is far more likely to complete course of transitioned to oral antibiotics even if potentially inferior. Will discharge on 2 more weeks of Augmentin. Time Spent with Patient Time attestation: Total time spent providing and/or coordinating discharge services: Discharge coordination time: Greater than 30 minutes Quality: Safe Use of Opioids Does Pt have an Active Cancer Diagnosis on the Problem List?: No Quality: Stroke Does the patient have a stroke diagnosis?: No Physical Exam Vital Signs: Vital Signs: Last Vital Signs Temp 98.9 F 08/02/22 11:25 Pulse 115 H 08/02/22 11:25 Resp 17 08/02/22 11:25 BP 118/77 08/02/22 11:25 Pulse Ox 96 08/02/22 11:25 O2 Del Method 08/02/22 11:25 BMI result Body Mass Index 23.5 General: alert oriented times 3, overall ill appearing Resp: Crackles bilateral, no accessory muscles used CVS: S1,S2,RRR GI: soft, non tender, non distended Neuro: motor grossly intact, alert Psych: appropriate affect, appropriate insight DS: Data Data Completed and Pending Completed studies during hospitalization [Text1]: Procedures Detoxification Services for Substance Abuse Treatment (11/18/21) Labs on day of discharge: Preliminary micro results at discharge 07/29/22 02:27 Blood Culture - Preliminary Blood - Venous No growth after 48 hours. 07/29/22 02:27 Blood Culture - Preliminary Blood - Venous No growth after 48 hours. Discharge Plan Discharge Anticipated Discharge Date/Time: 08/02/22 11:53 Patient Disposition: Home, Self-Care Discharge Diagnosis: pneumonia Referrals: Megan Stevenson FNP [Primary Care Provider] - 1 Week Discharge Medications: New amoxicillin-pot clavulanate 875-125 mg tablet 1 tab PO Q12H Qty: 14 0RF Continued Xarelto 20 mg Tablet 20 mg PO DAILY Qty: 30 0RF Rx Instructions: must administer with evening meal Discontinued amoxicillin 500 mg Tablet 1,000 mg PO TID Discharge Orders: Discharge Order (Routine); Ordered 08/02/22 Ordered By: Gaurav Snowden Diet: Advance to usual diet Activity on Discharge: As tolerated Stand Alone Forms: Patient Portal Discharge page Care Plan Goals: recovery Health Concerns: pneumonia, opiate dependence Plan of Treatment: restart xarelto, 7 days augmentin, conitnue opiate replacement therapy Assessment: see above
--- NOTE | 2022-08-02 12:22 | MHC.CM.PN ---
Male 31 DX SEPSIS Patient is discharge today self care. He has arranged for transportation home from his Mother. The Last Dose Letter was provided to the RN for Pts discharge.
== END 2022-08-02 14:01 | disposition home or self-care (01) | DRG 720 ==
LOC: HO.ED 05:30 → HO.EDOVER 09:19 → HO.IMC 07-30 13:21
PROVIDERS: Admitting Provider Family Medicine; Emergency Provider Emergency Medicine Emergency Medical Services; PCP Registered Nurse; Visit Provider Internal Medicine
DX: A41.9 Sepsis, unspecified organism (principal); I26.90 Septic pulmonary embolism without acute cor pulmonale; J69.0 Pneumonitis due to inhalation of food and vomit; I95.9 Hypotension, unspecified; K74.60 Unspecified cirrhosis of liver; E86.0 Dehydration; F11.20 Opioid dependence, uncomplicated; F19.10 Other psychoactive substance abuse, uncomplicated; B19.20 Unspecified viral hepatitis C without hepatic coma; Z95.2 Presence of prosthetic heart valve; Z59.02 Unsheltered homelessness; F17.210 Nicotine dependence, cigarettes, uncomplicated; Z71.6 Tobacco abuse counseling; Z56.0 Unemployment, unspecified; Z91.14 Patient's other noncompliance with medication regimen; Z20.822 Contact with and (suspected) exposure to COVID-19
CPT/HCPCS: 0241U; 36415; 71045; 73140; 80048; 80076; 80307; 81001; 82947; 83605; 84484; 85025; 85027; 85610; 85652; 85730; 86140; 87040; 93005; 99285; J0692; J1650; J2543; J3370; P9047

== ENCOUNTER 2022-08-02 19:47 | Inpatient (IN) | payer MEDICAID, SELFPAY ==
--- NOTE | ~2022-08-02 | CT_ITS ---
EXAMINATION: CT ANGIOGRAM OF THE CHEST WITH AND WITHOUT CONTRAST (CT PULMONARY ANGIOGRAM FOR PE) CLINICAL INFORMATION: Reason for Exam Shortness of breath, tachypnea, tachycardia COMPARISON: 11/03/2021 TECHNIQUE: Prior to contrast administration, noncontrast localization images were obtained. Subsequently, multidetector volumetric imaging was performed from the thoracic inlet to below the diaphragms following the administration of 80 mL Omnipaque 350 intravenous contrast. No contrast reaction reported Sagittal, coronal, and MIP oblique sagittal reformatted images were obtained on the CT workstation, uploaded to PACS, and reviewed. This CT examination was performed using dose optimization techniques as appropriate, variously including the following: *Automated exposure control *Adjustment of mA and/or kV according to patient size (this includes techniques or standardized protocols for targeted exams where dose is matched to indication/reason for exam; i.e. extremities or head) *Use of iterative reconstruction technique Total exam dose-length product 243 mGy-cm FINDINGS: QUALITY OF STUDY/CONTRAST BOLUS: Satisfactory. PULMONARY ARTERIES: Acute appearing thrombi noted within the throughout all segmental pulmonary arteries. No central pulmonary embolism. There are small hilar lymph nodes resolving partial volume averaging as well as mediastinal lymph nodes. THORACIC AORTA: No aneurysm or dissection. LUNG: Multiple new lesions with cavitation since baseline. Largest right upper lobe measuring up to 2.5 cm. PLEURA: Small layering right-sided pleural effusion minimal reaction left base. MEDIASTINUM: Normal heart size. No pericardial effusion. No hilar or mediastinal lymphadenopathy. No evidence of septal bowing or right heart strain. Evidence of previous cardiac surgery. CHEST WALL/AXILLA: No axillary or internal mammary lymphadenopathy. OSSEOUS STRUCTURES: No acute or suspicious osseous abnormality. UPPER ABDOMEN: Nonspecific hepatosplenomegaly partially imaged. No reflux of contrast into the hepatic veins to suggest elevated right heart pressures. CT/CT angio chest PE protocol IMPRESSION: Moderate acute appearing pulmonary artery embolism as above. Multiple irregular lesions some which are cavitating. These are nonspecific but may be on the basis of potentially septic emboli or cavitary metastatic disease from squamous cell carcinoma. Pulmonary infarcts are felt to be less likely based on appearance and distribution. Pulmonary medicine consultation recommended. This critical result was provided by care administrative tech staff at approximately 11:15 p.m. on the date of exam. VTE: positive
--- NOTE | ~2022-08-02 | XR_ITS ---
EXAMINATION: XR CHEST CLINICAL INFORMATION: Shortness of breath COMPARISON: 07/29/2022 TECHNIQUE: Frontal view of the chest was obtained. FINDINGS: Bilateral patchy airspace disease appears similar without significant progression regression allowing for technical differences. Evidence of increased cardiac surgery. No other change. XR/XR chest 1V IMPRESSION: No significant interval changes above. Bilateral infiltrates persist.
--- NOTE | ~2022-08-02 | CT_ITS ---
EXAMINATION: CT HEAD WITHOUT CONTRAST CLINICAL INFORMATION: Intravenous drug abuse COMPARISON: 10/08/2021 TECHNIQUE: Contiguous axial imaging was performed from the skull base to vertex without intravenous administration of contrast. This CT examination was performed using dose optimization techniques as appropriate, variously including the following: *Automated exposure control *Adjustment of mA and/or kV according to patient size (this includes techniques or standardized protocols for targeted exams where dose is matched to indication/reason for exam; i.e. extremities or head) *Use of iterative reconstruction technique DLP: 703 mGy-cm FINDINGS: There is no evidence of acute intracranial hemorrhage or territorial infarction. No abnormal mass effect or midline shift is seen. Daley to white matter differentiation is well preserved. No extra-axial fluid collections are identified. No hydrocephalus. No significant volume loss. There is no abnormal attenuation within the brain parenchyma. No acute osseous or soft tissue abnormality. The mastoid air cells and visualized portions of the paranasal sinuses are well aerated. CT/CT head/brain wo IV con IMPRESSION: No acute intracranial pathology.
[2022-08-02 19:51] VITALS: BP 170/100; PULSE 170; RESP 40; TEMP 37.3; O2SAT 84; BMI 19.3
[2022-08-02 20:00] VITALS: BP 127/85; PULSE 165; RESP 20; TEMP 37.3; O2SAT 99
--- NOTE | 2022-08-02 20:00 | PC.NURSE ---
Pt. changing over to hospital gown and going on security monitor at this time
--- NOTE | 2022-08-02 20:01 | PC.NURSE ---
Pt. on 15L nonrebreather
--- NOTE | 2022-08-02 20:03 | PC.NURSE ---
HT ST 165 on monitor
--- NOTE | 2022-08-02 20:06 | ECG_ITS ---
Test Reason : DYSPNEA Blood Pressure : / mmHG Vent. Rate : 162 BPM Atrial Rate : 162 BPM P-R Int : 120 ms QRS Dur : 068 ms QT Int : 282 ms P-R-T Axes : 081 086 030 degrees QTc Int : 462 ms Sinus tachycardia consider Possible Atrial flutter with 2 to 1 block RSR' or QR pattern in V1 suggests right ventricular conduction delay Nonspecific T wave abnormality Inferior leads Abnormal ECG When compared with ECG of 29-JUL-2022 02:41, T wave inversion no longer evident in Anterior leads Heart rate has increased Referred By: Monica Shankar Electronically Signed By:VENITA ENGLISH MD
--- NOTE | 2022-08-02 20:07 | PC.NURSE ---
Awaiting EKG machine at this time
--- NOTE | 2022-08-02 20:13 | PC.NURSE ---
Pt. taken off of 15L nonrebreather per verbal order MD Angel. Sats 98% on RA
--- NOTE | 2022-08-02 20:13 | PC.NURSE ---
Pt. sats still 98% on RA, but pt. requesting O2 for comfort. 2L NC at this time. Sats 100%
--- NOTE | 2022-08-02 20:19 | PC.NURSE ---
US-guided IV inserted at bedside by Lucita Shankar MD
--- NOTE | 2022-08-02 20:31 | ED_ITS ---
HPI - SOB/Dyspnea General Chief Complaint: Dyspnea Stated Complaint: sob d/c today Time Seen by Provider: 08/02/22 20:05 Source: patient and family (Mother) History of Present Illness HPI Narrative: 31-year-old male arrives after being brought in by his mother with complaints of increasing shortness of breath, denies chest pain/palpitations and states that he has used 1 bag of heroin since discharge today. Related Data Previous Rx's Medication Instructions Recorded amoxicillin 875 mg-potassium 1 tab PO Q12H #28 tabs 08/02/22 clavulanate 125 mg tablet rivaroxaban 20 mg tablet (Xarelto) 20 mg PO DAILY #30 tabs 08/02/22 Allergies Allergy/AdvReac Type Severity Reaction Status Date / Time No Known Allergies Allergy Verified 06/25/22 07:02 [No Known Allergies*] Review of Systems Review of Systems: Pertinent positives and negatives as stated in HPI 10 point review of systems is otherwise negative. [facility] Past Medical History Source: nursing notes reviewed Medical History Anasarca Bacteremia Bacteremia Endocarditis HCV (hepatitis C virus) Pulmonary embolism Right heart failure Steatosis, liver Tricuspid valve stenosis Surgical History History of tricuspid valve replacement with bioprosthetic valve Social History Social History Household Members: None Household Members Other:: none. homeless Housing: Homeless Do you presently have visiting nurse or other home services: No Unable to assess alcohol history related to: Refusing to respond Alcohol intake: never Patient Tobacco Use Status: Current everyday Tobacco user Tobacco use type: Cigarette Cigarette Packs Per Day: 1 Cigarettes Per Day: 20.0 Years Smoked: 10 Second Hand Smoke Exposure: No Use of substances other than those prescribed or required for medical reasons: Yes Substance Use Type: Crack/Cocaine, Heroin and Marijuana Substance Use Frequency: Daily Advance Directives: Yes Advance Directives on File: Yes Advance Directives Date on File: 04/16/21 service: No Current occupational status: unemployed Physical Exam Vital Signs: Vital Signs: Last Vital Signs Temp 99.0 F 08/02/22 22:18 Pulse 133 H 08/02/22 23:41 Resp 27 H 08/02/22 23:41 BP 107/72 08/02/22 23:41 Pulse Ox 90 L 08/02/22 23:41 O2 Del Method 08/02/22 23:41 O2 Flow Rate 2 08/02/22 20:34 BMI result Body Mass Index 19.3 VITAL SIGNS: Reviewed. GENERAL: Chronically ill, malnutrition, in no acute distress. HEAD: Normocephalic/atraumatic EYES: PERRLA, EOMI EARS: Ext canals without abnormality, TMs non-bulging and non-erythematous NOSE: Nares patent bilateral OROPHARYNX: no oral lesions noted, posterior pharynx clear, dry mucosa NECK: Supple, no adenopathy LUNGS: Decreased breath sounds, tachypnea present. SpO2<98> on non-rebreather, but noted to be 87% on arrival on room air CARDIOVASCULAR: Sinus tachycardia and rhythm without noted murmurs, no JVD or lower extremity edema. ABDOMEN: Soft, non-tender, non-distended with bowel sounds. MUSCULOSKELETAL: No tenderness, deformities, or effusions noted on gross inspection. EXTREMITIES: No cyanosis, clubbing or edema. SKIN: Inspection of the skin reveals no rashes, tactile fever NEUROLOGIC: Alert and oriented x 3. Strength and sensation to light touch were grossly intact x 4. Course Course Course Narrative: 31-year-old male with history and clinical presentation suggestive of possible complications associated with pneumonia and suspicion of poor adherence to anticoagulation. Will obtain CT of the head as well as CT angio with PE protocol. IV fluids were ordered. Review of all investigations consistent with moderate acute pulmonary artery embolus, and on further discussion with the patient he endorses that he is not taking any of his anticoagulation. In addition, I discussed this case with the inpatient hospitalist who accepts admission, we will restart the IV antibiotics that patient was on 12 hours ago as well as initiating Lovenox treatment. MDM - SOB/Dyspnea Lab Data Result diagrams: 08/02/22 20:26 08/02/22 20:26 Labs: Lab Results 08/02/22 08/02/22 08/02/22 Range/Units 20:26 20:26 20:26 WBC 12.2 H (4.8-10.8) X10*3/uL RBC 4.27 L (4.60-5.80) X10*6/uL Hgb 10.6 L (14.0-18.0) g/dl Hct 34.7 L (42.0-52.0) % MCV 81.3 (80.0-98.0) fL MCH 24.8 L (27.0-33.0) pg MCHC 30.5 L (31.0-36.0) g/dl RDW 21.7 H (11.0-16.0) % Plt Count 190 (160-400) X10*3/uL MPV 9.5 (9.4-12.4) fL Immature Gran % (Auto) 2.8 H (0.0-0.4) % Neut % (Auto) 77.8 H (45-73) % Lymph % (Auto) 13.7 L (20-40) % [place] % (Auto) 4.7 (2-11) % Eos % (Auto) 0.7 (0-4) % Baso % (Auto) 0.3 (0-2) % Lymph # (Auto) 1.7 (1.2-4.9) X10*3/uL [place] # (Auto) 0.6 (0.1-1.2) X10*3/uL Eos # (Auto) 0.1 (0.0-0.4) X10*3/uL Baso # (Auto) 0.0 (0.0-0.2) X10*3/uL Abs Immat Gran (auto) 0.34 H (0.00-0.03) X10*3/uL Absolute Neuts (auto) 9.5 H (2.0-8.3) x10*3/uL Absolute Nucleated RBC 0.000 (0.0-0.012) X10*3/uL Nucleated RBC % (auto) 0.0 (0.0-0.2) /100WBC PT (10.0-13.1) SEC INR (0.9-1.1) APTT 42.7 H (26.0-36.4) SEC VBG pH (7.32-7.43) VBG pCO2 mmHg VBG pO2 mmHg VBG HCO3 (22-26) mmol/L VBG O2 Saturation % VBG Base Excess mmol/L Sodium (135-145) mmol/L Potassium (3.3-5.1) mmol/L Chloride (96-108) mmol/L Carbon Dioxide (22-29) mmol/L Anion Gap (12-20) BUN (9-16) mg/dL Creatinine (0.5-1.4) mg/dL Estim Creat Clear Calc Estimated GFR Random Glucose (60-115) mg/dL Lactic Acid (0.5-2.0) mmol/L Calcium (8.4-10.2) mg/dL Total Bilirubin (0.0-1.0) mg/dL AST (5-37) U/L ALT (0-40) U/L Alkaline Phosphatase (39-117) U/L Troponin I High Sens (<3.5-35.0) ng/L B-Natriuretic Peptide 213 H (<100) pg/mL Total Protein (6.5-8.0) g/dL Albumin (3.5-5.0) g/dL Acetone, Qual (Negative) COVID-19 ([facility]) (Negative) COVID-19 Clin Com Influenza Type A ([facility]) (Negative) Influenza Type B ([facility]) (Negative) Influenza A & B Note 08/02/22 08/02/22 08/02/22 Range/Units 20:26 20:26 20:26 WBC (4.8-10.8) X10*3/uL RBC (4.60-5.80) X10*6/uL Hgb (14.0-18.0) g/dl Hct (42.0-52.0) % MCV (80.0-98.0) fL MCH (27.0-33.0) pg MCHC (31.0-36.0) g/dl RDW (11.0-16.0) % Plt Count (160-400) X10*3/uL MPV (9.4-12.4) fL Immature Gran % (Auto) (0.0-0.4) % Neut % (Auto) (45-73) % Lymph % (Auto) (20-40) % [place] % (Auto) (2-11) % Eos % (Auto) (0-4) % Baso % (Auto) (0-2) % Lymph # (Auto) (1.2-4.9) X10*3/uL [place] # (Auto) (0.1-1.2) X10*3/uL Eos # (Auto) (0.0-0.4) X10*3/uL Baso # (Auto) (0.0-0.2) X10*3/uL Abs Immat Gran (auto) (0.00-0.03) X10*3/uL Absolute Neuts (auto) (2.0-8.3) x10*3/uL Absolute Nucleated RBC (0.0-0.012) X10*3/uL Nucleated RBC % (auto) (0.0-0.2) /100WBC PT 17.5 H (10.0-13.1) SEC INR 1.5 H (0.9-1.1) APTT (26.0-36.4) SEC VBG pH (7.32-7.43) VBG pCO2 mmHg VBG pO2 mmHg VBG HCO3 (22-26) mmol/L VBG O2 Saturation % VBG Base Excess mmol/L Sodium 137 (135-145) mmol/L Potassium 5.3 H D (3.3-5.1) mmol/L Chloride 107 (96-108) mmol/L Carbon Dioxide 19 L (22-29) mmol/L Anion Gap 16 (12-20) BUN 18 H (9-16) mg/dL Creatinine 1.14 (0.5-1.4) mg/dL Estim Creat Clear Calc 70.9 Estimated GFR > 60 Random Glucose 109 D (60-115) mg/dL Lactic Acid (0.5-2.0) mmol/L Calcium 8.9 D (8.4-10.2) mg/dL Total Bilirubin 1.4 H (0.0-1.0) mg/dL AST 27 D (5-37) U/L ALT 13 (0-40) U/L Alkaline Phosphatase 268 H (39-117) U/L Troponin I High Sens 13.1 (<3.5-35.0) ng/L B-Natriuretic Peptide (<100) pg/mL Total Protein 8.4 H D (6.5-8.0) g/dL Albumin 3.7 D (3.5-5.0) g/dL Acetone, Qual Negative (Negative) COVID-19 ([facility]) (Negative) COVID-19 Clin Com Influenza Type A ([facility]) (Negative) Influenza Type B ([facility]) (Negative) Influenza A & B Note 08/02/22 08/02/22 08/02/22 Range/Units 20:33 20:48 20:48 WBC (4.8-10.8) X10*3/uL RBC (4.60-5.80) X10*6/uL Hgb (14.0-18.0) g/dl Hct (42.0-52.0) % MCV (80.0-98.0) fL MCH (27.0-33.0) pg MCHC (31.0-36.0) g/dl RDW (11.0-16.0) % Plt Count (160-400) X10*3/uL MPV (9.4-12.4) fL Immature Gran % (Auto) (0.0-0.4) % Neut % (Auto) (45-73) % Lymph % (Auto) (20-40) % [place] % (Auto) (2-11) % Eos % (Auto) (0-4) % Baso % (Auto) (0-2) % Lymph # (Auto) (1.2-4.9) X10*3/uL [place] # (Auto) (0.1-1.2) X10*3/uL Eos # (Auto) (0.0-0.4) X10*3/uL Baso # (Auto) (0.0-0.2) X10*3/uL Abs Immat Gran (auto) (0.00-0.03) X10*3/uL Absolute Neuts (auto) (2.0-8.3) x10*3/uL Absolute Nucleated RBC (0.0-0.012) X10*3/uL Nucleated RBC % (auto) (0.0-0.2) /100WBC PT (10.0-13.1) SEC INR (0.9-1.1) APTT (26.0-36.4) SEC VBG pH 7.36 (7.32-7.43) VBG pCO2 29 mmHg VBG pO2 57 mmHg VBG HCO3 16 L (22-26) mmol/L VBG O2 Saturation 83.0 % VBG Base Excess -7.2 mmol/L Sodium (135-145) mmol/L Potassium (3.3-5.1) mmol/L Chloride (96-108) mmol/L Carbon Dioxide (22-29) mmol/L Anion Gap (12-20) BUN (9-16) mg/dL Creatinine (0.5-1.4) mg/dL Estim Creat Clear Calc Estimated GFR Random Glucose (60-115) mg/dL Lactic Acid (0.5-2.0) mmol/L Calcium (8.4-10.2) mg/dL Total Bilirubin (0.0-1.0) mg/dL AST (5-37) U/L ALT (0-40) U/L Alkaline Phosphatase (39-117) U/L Troponin I High Sens (<3.5-35.0) ng/L B-Natriuretic Peptide (<100) pg/mL Total Protein (6.5-8.0) g/dL Albumin (3.5-5.0) g/dL Acetone, Qual (Negative) COVID-19 ([facility]) Negative (Negative) COVID-19 Clin Com See Note Influenza Type A ([facility]) Negative (Negative) Influenza Type B ([facility]) Negative (Negative) Influenza A & B Note See Note 08/02/22 Range/Units 20:48 WBC (4.8-10.8) X10*3/uL RBC (4.60-5.80) X10*6/uL Hgb (14.0-18.0) g/dl Hct (42.0-52.0) % MCV (80.0-98.0) fL MCH (27.0-33.0) pg MCHC (31.0-36.0) g/dl RDW (11.0-16.0) % Plt Count (160-400) X10*3/uL MPV (9.4-12.4) fL Immature Gran % (Auto) (0.0-0.4) % Neut % (Auto) (45-73) % Lymph % (Auto) (20-40) % [place] % (Auto) (2-11) % Eos % (Auto) (0-4) % Baso % (Auto) (0-2) % Lymph # (Auto) (1.2-4.9) X10*3/uL [place] # (Auto) (0.1-1.2) X10*3/uL Eos # (Auto) (0.0-0.4) X10*3/uL Baso # (Auto) (0.0-0.2) X10*3/uL Abs Immat Gran (auto) (0.00-0.03) X10*3/uL Absolute Neuts (auto) (2.0-8.3) x10*3/uL Absolute Nucleated RBC (0.0-0.012) X10*3/uL Nucleated RBC % (auto) (0.0-0.2) /100WBC PT (10.0-13.1) SEC INR (0.9-1.1) APTT (26.0-36.4) SEC VBG pH (7.32-7.43) VBG pCO2 mmHg VBG pO2 mmHg VBG HCO3 (22-26) mmol/L VBG O2 Saturation % VBG Base Excess mmol/L Sodium (135-145) mmol/L Potassium (3.3-5.1) mmol/L Chloride (96-108) mmol/L Carbon Dioxide (22-29) mmol/L Anion Gap (12-20) BUN (9-16) mg/dL Creatinine (0.5-1.4) mg/dL Estim Creat Clear Calc Estimated GFR Random Glucose (60-115) mg/dL Lactic Acid 1.8 (0.5-2.0) mmol/L Calcium (8.4-10.2) mg/dL Total Bilirubin (0.0-1.0) mg/dL AST (5-37) U/L ALT (0-40) U/L Alkaline Phosphatase (39-117) U/L Troponin I High Sens (<3.5-35.0) ng/L B-Natriuretic Peptide (<100) pg/mL Total Protein (6.5-8.0) g/dL Albumin (3.5-5.0) g/dL Acetone, Qual (Negative) COVID-19 ([facility]) (Negative) COVID-19 Clin Com Influenza Type A ([facility]) (Negative) Influenza Type B ([facility]) (Negative) Influenza A & B Note ECG Data Attestation: I personally reviewed and interpreted this ECG as follows: Prior ECG tracings: available for review Interpretation: Sinus tachycardia, HR-162, no STEMI, RI/QRS/QTC are within normal limits. Procedures EJ/Peripheral Line Arm R: Time Out Performed: No Skin Cleansed in Sterile Fashion: Yes Size (gauge): 18 IV Secured and Dressing Applied: Yes Patient Tolerated Procedure: well and no complications Additional Comments: Ultrasound-guided Critical Care Time Critical Care Time Critical Care Time: Yes Total Critical Care Time: 30 Attestation: I personally attest to this time spent taking care of the patient. Discharge Plan Discharge Clinical Impression: Pulmonary embolism without acute cor pulmonale, Bacteremia, Hypoxia Patient Disposition: Admitted As Inpatient Prescriptions: No Action Xarelto 20 mg Tablet 20 mg PO DAILY Qty: 30 0RF Rx Instructions: must administer with evening meal amoxicillin-pot clavulanate 875-125 mg tablet 1 tab PO Q12H Qty: 28 0RF
--- NOTE | 2022-08-02 20:32 | PC.NURSE ---
Labs sent as ordered
[2022-08-02 20:34] VITALS: BP 125/78; PULSE 161; RESP 18; O2SAT 94
[2022-08-02 20:35] LABS: MANUAL DIFF FLAG NO
[2022-08-02 20:36] LABS: Basophils Percent Auto 0.3 % (0-2); Eosinophils Absolute Auto 0.1 X10*3/uL (0.0-0.4); Eosinophils Percent Auto 0.7 % (0-4); Hematocrit 34.7 % (42.0-52.0); Hemoglobin 10.6 g/dl (14.0-18.0); Imm Gran Abs Auto 0.34 X10*3/uL (0.00-0.03); Imm Gran Pct Auto 2.8 % (0.0-0.4); Lymphocytes Absolute Auto 1.7 X10*3/uL (1.2-4.9); Lymphocytes Percent Auto 13.7 % (20-40); Mean Corpuscular HGB Conc 30.5 g/dl (31.0-36.0); Mean Corpuscular Hemoglobin 24.8 pg (27.0-33.0); Mean Corpuscular Volume 81.3 fL (80.0-98.0); Mean Platelet Volume 9.5 fL (9.4-12.4); Monocytes Absolute Auto 0.6 X10*3/uL (0.1-1.2); Monocytes Percent Auto 4.7 % (2-11); Neutrophils Absolute Auto 9.5 x10*3/uL (2.0-8.3); Neutrophils Percent Auto 77.8 % (45-73); Platelet Count 190 X10*3/uL (160-400); Red Blood Count 4.27 X10*6/uL (4.60-5.80); Red Cell Distribution Width 21.7 % (11.0-16.0); White Blood Count 12.2 X10*3/uL (4.8-10.8)
[2022-08-02] MEDS: 0.9 % Sodium Chloride 2,000 ML 999 ML IV (20:37)
[2022-08-02 20:38] LABS: VBG Base Excess -7.2 mmol/L; VBG HCO3 16 mmol/L (22-26); VBG pCO2 29 mmHg; VBG pH 7.36 (7.32-7.43); VBG pO2 57 mmHg
[2022-08-02 20:38] LABS: Venous Blood Gas Refer to POC result
[2022-08-02 20:42] LABS: INTERNATIONAL NORM RATIO 1.5 (0.9-1.1); Prothrombin Time 17.5 SEC (10.0-13.1)
--- NOTE | 2022-08-02 20:43 | PC.NURSE ---
Pt. disoriented and seeing people, stating to this RN that his vision is changing. Raad notified. She anticipates ordering head CT
[2022-08-02 20:45] LABS: Partial Thromboplastin Time 42.7 SEC (26.0-36.4)
--- NOTE | 2022-08-02 20:45 | PC.NURSE ---
First set of blood cultures sent
[2022-08-02 20:53] LABS: Alanine Aminotransferase 13 U/L (0-40); Albumin Level 3.7 g/dL (3.5-5.0); Alkaline Phosphatase 268 U/L (39-117); Anion Gap 16 (12-20); Aspartate Amino Transferase 27 U/L (5-37); Bilirubin Total 1.4 mg/dL (0.0-1.0); Blood Urea Nitrogen 18 mg/dL (9-16); Calcium 8.9 mg/dL (8.4-10.2); Carbon Dioxide 19 mmol/L (22-29); Chloride 107 mmol/L (96-108); Creatinine Clr Calc Pharmacy 70.9; Estimated Glomerular Filt Rate > 60; Glucose Random 109 mg/dL (60-115); Potassium 5.3 mmol/L (3.3-5.1); Sodium 137 mmol/L (135-145); Total Protein 8.4 g/dL (6.5-8.0)
[2022-08-02 20:58] LABS: B Type Natriuretic Peptide 213 pg/mL (<100); Troponin-I High Sensitivity 13.1 ng/L (<3.5-35.0)
--- NOTE | 2022-08-02 21:04 | PC.NURSE ---
Bedside chest xray being done at this time
--- NOTE | 2022-08-02 21:04 | PC.NURSE ---
Spoke with pt.'s mother. Pt.'s mother stated to this RN that she is concerned about pt. because he is very sick and has been usign drugs for years, always repeating this cycle of going to the hospital, leaving, then getting sicker. Pt.'s mother wants to know if there is a way that we can medically section her son so he has to stay and receive treatment. Spoke with Lucita Shankar MD. We cannot section her son at this time d/t his age and current medical state. states that perhaps if pt. became sicker and disoriented, there may be a way to get him to stay, but we cannot make him stay at this time if he chooses to leave. Mother aware, receptive to this RN and is leaving for the night at this time.
[2022-08-02 21:11] LABS: Lactic Acid 1.8 mmol/L (0.5-2.0)
[2022-08-02 21:15] LABS: Acetone, serum QL Negative (Negative)
[2022-08-02 21:21] LABS: Influenza A Negative (Negative); Influenza B2 Negative (Negative)
[2022-08-02 21:22] LABS: COVID-19 Test Negative (Negative); IDNOW Serial# 16C4AD1C
[2022-08-02] MEDS: iohexoL 350 MG/ML 100 ML INFUS..BTL IV (22:06)
[2022-08-02 22:18] VITALS: BP 102/60; PULSE 134; RESP 25; TEMP 37.2; O2SAT 94
[2022-08-02 23:41] VITALS: BP 107/72; PULSE 133; RESP 27; O2SAT 90
[2022-08-03 01:09] LABS: Amphetamine Screen Urine Not Detected (Not Detect); Barbiturates, Urine Not Detected (Not Detect); Benzodiazepines Screen Urine Not Detected (Not Detect); Cannabinoid Screen Urine Not Detected (Not Detect); Cocaine Screen Urine POSITIVE (Not Detect); Fentanyl, urine POSITIVE (Not Detect); Opiate Screen Urine POSITIVE (Not Detect); Phencyclidine Screen Urine Not Detected (Not Detect)
--- NOTE | 2022-08-03 01:19 | P.HPHOSP_ITS ---
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 Patient complains of pleuritic chest discomfort at the time of my evaluation. He was satting 84% on room air when he 1st came to the ER. Patient did not take his medications since being discharged from the hospital on 08/02. He was admitted for sepsis secondary to recent bacteremia. Patient is extremely noncompliant with his medications and has left AMA multiple times within the last 2 months from 2 different facilities. He admits to using 1 bag of heroin today since being discharged from the hospital. Is also complaining of blurring of vision that started today. No eye pain. Unable to obtain review of systems as patient is vague and difficult to be redirected. [facility] Medical History Anasarca Bacteremia Bacteremia Endocarditis HCV (hepatitis C virus) Pulmonary embolism Right heart failure Steatosis, liver Tricuspid valve stenosis Surgical History History of tricuspid valve replacement with bioprosthetic valve Social History Household Members: None Household Members Other:: none. homeless Housing: Homeless Do you presently have visiting nurse or other home services: No Unable to assess alcohol history related to: Refusing to respond Alcohol intake: never Patient Tobacco Use Status: Current everyday Tobacco user Tobacco use type: Cigarette Cigarette Packs Per Day: 1 Cigarettes Per Day: 20.0 Years Smoked: 10 Second Hand Smoke Exposure: No Use of substances other than those prescribed or required for medical reasons: Yes Substance Use Type: Crack/Cocaine, Heroin and Marijuana Substance Use Frequency: Daily Advance Directives: Yes Advance Directives on File: Yes Advance Directives Date on File: 04/16/21 service: No Current occupational status: unemployed Meds Allergies Allergy/AdvReac Type Severity Reaction Status Date / Time No Known Allergies Allergy Verified 06/25/22 07:02 [No Known Allergies*] Active Medications: Current Medications Doxycycline Hyclate 100 mg/ (Sodium Chloride) 250 mls @ 166.67 mls/hr IV ONCE ONE Stop: 08/03/22 02:05 Physical Exam Vital Signs and Narrative: Vital Signs: Last Vital Signs Temp 99.0 F 08/02/22 22:18 Pulse 133 H 08/02/22 23:41 Resp 27 H 08/02/22 23:41 BP 107/72 08/02/22 23:41 Pulse Ox 90 L 08/02/22 23:41 O2 Del Method 08/02/22 23:41 O2 Flow Rate 2 08/02/22 20:34 BMI result Body Mass Index 19.3 Middle-aged male lying in bed in mild distress on 2 L supplemental oxygen Neck supple, no JVD Tachycardic with regular rhythm, S1-S2 heard No wheezing appreciated, crackles heard Abdomen soft nontender, no guarding, no rigidity Patient is awake, alert and oriented to self, place, time and person ; no focal motor deficit, no pronator drift, no ophthalmoplegia Psych: Normal mood No pedal edema Results Labs CBC and Chem 7: 08/02/22 20:26 08/02/22 20:26 Labs: Laboratory Results - last 24 hr 08/02/22 08/02/22 08/02/22 20:26 20:26 20:26 MCV 81.3 MCH 24.8 L MCHC 30.5 L RDW 21.7 H Plt Count 190 MPV 9.5 Immature Gran % (Auto) 2.8 H Neut % (Auto) 77.8 H Lymph % (Auto) 13.7 L [place] % (Auto) 4.7 Eos % (Auto) 0.7 Baso % (Auto) 0.3 Lymph # (Auto) 1.7 [place] # (Auto) 0.6 Eos # (Auto) 0.1 Baso # (Auto) 0.0 Abs Immat Gran (auto) 0.34 H Absolute Neuts (auto) 9.5 H Absolute Nucleated RBC 0.000 Nucleated RBC % (auto) 0.0 PT INR APTT 42.7 H VBG pH VBG pCO2 VBG pO2 VBG HCO3 VBG O2 Saturation VBG Base Excess Anion Gap Estim Creat Clear Calc Estimated GFR Random Glucose Lactic Acid Calcium Total Bilirubin AST ALT Alkaline Phosphatase Troponin I High Sens B-Natriuretic Peptide 213 H Total Protein Albumin Urine Opiates Screen Urine Fentanyl Screen Ur Barbiturates Screen Ur Phencyclidine Scrn Ur Amphetamines Screen U Benzodiazepines Scrn Urine Cocaine Screen U Marijuana (THC) Screen Acetone, Qual COVID-19 ([facility]) COVID-19 Clin Com Influenza Type A ([facility]) Influenza Type B ([facility]) Influenza A & B Note 08/02/22 08/02/22 08/02/22 20:26 20:26 20:26 MCV MCH MCHC RDW Plt Count MPV Immature Gran % (Auto) Neut % (Auto) Lymph % (Auto) Stodd[place] % (Auto) Eos % (Auto) Baso % (Auto) Lymph # (Auto) [place] # (Auto) Eos # (Auto) Baso # (Auto) Abs Immat Gran (auto) Absolute Neuts (auto) Absolute Nucleated RBC Nucleated RBC % (auto) PT 17.5 H INR 1.5 H APTT VBG pH VBG pCO2 VBG pO2 VBG HCO3 VBG O2 Saturation VBG Base Excess Anion Gap 16 Estim Creat Clear Calc 70.9 Estimated GFR > 60 Random Glucose 109 D Lactic Acid Calcium 8.9 D Total Bilirubin 1.4 H AST 27 D ALT 13 Alkaline Phosphatase 268 H Troponin I High Sens 13.1 B-Natriuretic Peptide Total Protein 8.4 H D Albumin 3.7 D Urine Opiates Screen Urine Fentanyl Screen Ur Barbiturates Screen Ur Phencyclidine Scrn Ur Amphetamines Screen U Benzodiazepines Scrn Urine Cocaine Screen U Marijuana (THC) Screen Acetone, Qual Negative COVID-19 ([facility]) COVID-19 Clin Com Influenza Type A ([facility]) Influenza Type B ([facility]) Influenza A & B Note 08/02/22 08/02/22 08/02/22 20:33 20:48 20:48 MCV MCH MCHC RDW Plt Count MPV Immature Gran % (Auto) Neut % (Auto) Lymph % (Auto) [place] % (Auto) Eos % (Auto) Baso % (Auto) Lymph # (Auto) [place] # (Auto) Eos # (Auto) Baso # (Auto) Abs Immat Gran (auto) Absolute Neuts (auto) Absolute Nucleated RBC Nucleated RBC % (auto) PT INR APTT VBG pH 7.36 VBG pCO2 29 VBG pO2 57 VBG HCO3 16 L VBG O2 Saturation 83.0 VBG Base Excess -7.2 Anion Gap Estim Creat Clear Calc Estimated GFR Random Glucose Lactic Acid Calcium Total Bilirubin AST ALT Alkaline Phosphatase Troponin I High Sens B-Natriuretic Peptide Total Protein Albumin Urine Opiates Screen Urine Fentanyl Screen Ur Barbiturates Screen Ur Phencyclidine Scrn Ur Amphetamines Screen U Benzodiazepines Scrn Urine Cocaine Screen U Marijuana (THC) Screen Acetone, Qual COVID-19 ([facility]) Negative COVID-19 Clin Com See Note Influenza Type A ([facility]) Negative Influenza Type B ([facility]) Negative Influenza A & B Note See Note 08/02/22 08/03/22 20:48 00:50 MCV MCH MCHC RDW Plt Count MPV Immature Gran % (Auto) Neut % (Auto) Lymph % (Auto) [place] % (Auto) Eos % (Auto) Baso % (Auto) Lymph # (Auto) [place] # (Auto) Eos # (Auto) Baso # (Auto) Abs Immat Gran (auto) Absolute Neuts (auto) Absolute Nucleated RBC Nucleated RBC % (auto) PT INR APTT VBG pH VBG pCO2 VBG pO2 VBG HCO3 VBG O2 Saturation VBG Base Excess Anion Gap Estim Creat Clear Calc Estimated GFR Random Glucose Lactic Acid 1.8 Calcium Total Bilirubin AST ALT Alkaline Phosphatase Troponin I High Sens B-Natriuretic Peptide Total Protein Albumin Urine Opiates Screen POSITIVE H Urine Fentanyl Screen POSITIVE H Ur Barbiturates Screen Not Detected Ur Phencyclidine Scrn Not Detected Ur Amphetamines Screen Not Detected U Benzodiazepines Scrn Not Detected Urine Cocaine Screen POSITIVE H U Marijuana (THC) Screen Not Detected Acetone, Qual COVID-19 ([facility]) COVID-19 Clin Com Influenza Type A ([facility]) Influenza Type B ([facility]) Influenza A & B Note Imaging Radiologist's Impressions: Impressions Chest X-Ray 08/02/22 21:05 IMPRESSION: No significant interval changes above. Bilateral infiltrates persist. Head CT 08/02/22 22:10 IMPRESSION: No acute intracranial pathology. Chest CTA 08/02/22 22:25 IMPRESSION: Moderate acute appearing pulmonary artery embolism as above. Multiple irregular lesions some which are cavitating. These are nonspecific but may be on the basis of potentially septic emboli or cavitary metastatic disease from squamous cell carcinoma. Pulmonary infarcts are felt to be less likely based on appearance and distribution. Pulmonary medicine consultation recommended. This critical result was provided by latent print examiner staff at approximately 11:15 p.m. on the date of exam. 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 #. Acute hypoxemic respiratory failure #. Pulmonary embolus, ?new & acute #. Cavitating multiple irregular pulmonary lesions concerning for septic emboli #. Group B strep bacteremia, noncompliant with antibiotics -will admit patient and initiate cefepime and doxycycline. Blood cultures obtained in the ER. Patient resuscitated with IV crystalloids. Also initiating Lovenox 1 mg/kg twice daily. Does have a history of previous PE and is noncompliant with anticoagulants) Obtaining transthoracic echocardiogram in a patient with septic emboli, recurrent endocarditis and bioprosthetic valve stenosis. Monitor oxygen saturation and maintain above 92%, wean as tolerated #. Blurry vision -obtaining MRI of the head to rule out embolic stroke in this high-risk patient #. Poly substance use disorder -monitor for withdrawal. UDS positive for heroin and cocaine. Patient not motivated to quit at this time. #. Hepatitis C cirrhosis, untreated -will need outpatient follow-up DVT prophylaxis: Lovenox Diet: Regular diet Full code Patient will require two night minimum hospital stay for management of acute hypoxemic respiratory failure. Also needing IV antibiotics for septic embolus and recent group B strep bacteremia Quality Stroke Does the patient have a stroke diagnosis?: No VTE Prior VTE?: Yes VTE Risk Level:: Medical - moderate - high VTE Device Contraindication: Treatment Not Indicated VTE Drug Contraindication: N/A - Med Ordered
[2022-08-03] MEDS: cefEPime HCl 1 GM in 0.9 % Sodium Chloride 50 ML IV (01:21)
--- NOTE | 2022-08-03 01:34 | PC.NURSE ---
Lovenox not loaded in ED or ED BH Pod. Notified Cammy Gandara, Supervising RN for med.
--- NOTE | 2022-08-03 01:36 | PC.NURSE ---
Pt. is assigned a bed on med-surg. Concierge Receptionist Cammy is just going to bring 00:36 dose of Lovenox to pt.'s receiving med-surg. RN to administer
--- NOTE | 2022-08-03 01:50 | PC.NURSE ---
Duplicate med. orders in for 01:45 for Lovenox, Cefepime, and Doxycycline. Confirming with MD Rickey if he would still like administered
--- NOTE | 2022-08-03 02:02 | PC.NURSE ---
Per Hospitalist, skip 00:36 dose Lovenox and give 01:45 dose Lovenox instead
[2022-08-03] MEDS: Doxycycline Hyclate 100 MG in 0.9 % Sodium Chloride 250 ML 166.67 MG IV (02:03)
[2022-08-03 02:22] VITALS: BP 98/59; PULSE 99; RESP 17; TEMP 36.4; O2SAT 95
[2022-08-03] MEDS: Enoxaparin Sodium 60 MG/0.6 ML SYRINGE 50 MG SUBCUT (02:33)
[2022-08-03 02:45] VITALS: BMI 23.7
[2022-08-03 03:46] VITALS: BP 107/63; PULSE 99; RESP 15; TEMP 36.3; O2SAT 94
[2022-08-03 07:24] LABS: MANUAL DIFF FLAG NO
[2022-08-03 07:29] LABS: Basophils Percent Auto 0.4 % (0-2); Eosinophils Absolute Auto 0.2 X10*3/uL (0.0-0.4); Eosinophils Percent Auto 2.3 % (0-4); Hematocrit 27.6 % (42.0-52.0); Hemoglobin 8.5 g/dl (14.0-18.0); Imm Gran Abs Auto 0.18 X10*3/uL (0.00-0.03); Imm Gran Pct Auto 1.7 % (0.0-0.4); Lymphocytes Absolute Auto 2.9 X10*3/uL (1.2-4.9); Lymphocytes Percent Auto 27.4 % (20-40); Mean Corpuscular HGB Conc 30.8 g/dl (31.0-36.0); Mean Corpuscular Volume 81.2 fL (80.0-98.0); Mean Platelet Volume 10.6 fL (9.4-12.4); Monocytes Absolute Auto 1.4 X10*3/uL (0.1-1.2); Neutrophils Absolute Auto 5.9 x10*3/uL (2.0-8.3); Neutrophils Percent Auto 55.2 % (45-73); Platelet Count 163 X10*3/uL (160-400); Red Cell Distribution Width 21.8 % (11.0-16.0); White Blood Count 10.7 X10*3/uL (4.8-10.8)
[2022-08-03 07:45] LABS: Anion Gap 16 (12-20); Blood Urea Nitrogen 22 mg/dL (9-16); Calcium 8.5 mg/dL (8.4-10.2); Carbon Dioxide 18 mmol/L (22-29); Chloride 109 mmol/L (96-108); Creatinine Clr Calc Pharmacy 84.6; Estimated Glomerular Filt Rate > 60; Glucose Random 99 mg/dL (60-115); Potassium 4.5 mmol/L (3.3-5.1); Sodium 138 mmol/L (135-145)
[2022-08-03 07:46] VITALS: BP 108/63; PULSE 82; RESP 18; TEMP 36.1; O2SAT 91
[2022-08-03] MEDS: cefEPime HCl 2 GM in 0.9 % Sodium Chloride 50 ML IV (08:07)
[2022-08-03] MEDS: 0.9 % Sodium Chloride Flush 3 ML SYRINGE IVFLUSH (08:07)
--- NOTE | 2022-08-03 08:26 | HO.PM.IMPN ---
Subjective Subjective Date of Service: 08/03/22 Interval History: cc: sob interval history: sob improved, pleuritic chest pain Cardiovascular Cardiovascular: Reports no additional cardiovascular complaints Respiratory Respiratory: Reports no additional respiratory complaints Physical Exam Vital Signs: Vital Signs: Last Vital Signs Temp 97 F 08/03/22 07:46 Pulse 82 08/03/22 07:46 Resp 18 08/03/22 07:46 BP 108/63 08/03/22 07:46 Pulse Ox 91 L 08/03/22 07:46 O2 Del Method 08/03/22 07:46 O2 Flow Rate 2 08/03/22 02:22 BMI result Body Mass Index 23.7 General: AO X 3, no acute distress, frail Resp: diminished bilateral, no accessory muscles used CVS: S1,S2,RRR GI: soft, non tender, non distended Neuro: motor grossly intact, alert Psych: appropriate affect, appropriate insight Objective Data Active Medications Acetaminophen (Acetaminophen 325 Mg Tablet) 650 mg PO Q6H PRN PRN Reason: Pain, Mild (Pain Scale 1-3) Cefepime HCl 2 gm/ Sodium (Chloride) 50 mls @ 100 mls/hr IV Q8H [facility] Last Admin: 08/03/22 08:07 Dose: 100 mls/hr Documented By: GRAHAM Doxycycline Hyclate 100 mg/ (Sodium Chloride) 250 mls @ 166.67 mls/hr IV Q12H [facility] Last Infusion: 08/03/22 03:55 Dose: 0 mls/hr Documented By: CASSIE Melatonin (Melatonin 3 Mg Tablet) 6 mg PO BEDTIME PRN PRN Reason: Insomnia Methadone HCl (Methadone Hcl 20 Mg/2 Ml Oral.Conc) 30 mg PO DAILY [facility] Pharmacy Consult (Consult Rx Perform Med Rec) 1 each MISCELLANE ONCE PRN PRN Reason: Consult order Rivaroxaban (Rivaroxaban 20 Mg Tablet) 20 mg PO DAILY@1700 [facility] Sodium Chloride (0.9 % Sodium Chloride Flush 3 Ml Syringe) 3 ml IVFLUSH QSHIFT [facility] Last Admin: 08/03/22 08:07 Dose: 3 ml Documented By: GRAHAM Labs CBC & Chem 7: 08/03/22 06:19 08/03/22 06:19 Labs: Laboratory Results - last 24 hr 10/15/22 10/15/22 10/15/22 20:26 20:26 20:26 MCV 81.3 MCH 24.8 L MCHC 30.5 L RDW 21.7 H Plt Count 190 MPV 9.5 Immature Gran % (Auto) 2.8 H Neut % (Auto) 77.8 H Lymph % (Auto) 13.7 L [place] % (Auto) 4.7 Eos % (Auto) 0.7 Baso % (Auto) 0.3 Lymph # (Auto) 1.7 [place] # (Auto) 0.6 Eos # (Auto) 0.1 Baso # (Auto) 0.0 Abs Immat Gran (auto) 0.34 H Absolute Neuts (auto) 9.5 H Absolute Nucleated RBC 0.000 Nucleated RBC % (auto) 0.0 PT INR APTT 42.7 H VBG pH VBG pCO2 VBG pO2 VBG HCO3 VBG O2 Saturation VBG Base Excess Anion Gap Estim Creat Clear Calc Estimated GFR Random Glucose Lactic Acid Calcium Total Bilirubin AST ALT Alkaline Phosphatase Troponin I High Sens B-Natriuretic Peptide 213 H Total Protein Albumin Urine Opiates Screen Urine Fentanyl Screen Ur Barbiturates Screen Ur Phencyclidine Scrn Ur Amphetamines Screen U Benzodiazepines Scrn Urine Cocaine Screen U Marijuana (THC) Screen Acetone, Qual COVID-19 ([facility]) COVID-19 Clin Com Influenza Type A ([facility]) Influenza Type B ([facility]) Influenza A & B Note 08/02/22 08/02/22 08/02/22 20:26 20:26 20:26 MCV MCH MCHC RDW Plt Count MPV Immature Gran % (Auto) Neut % (Auto) Lymph % (Auto) [place] % (Auto) Eos % (Auto) Baso % (Auto) Lymph # (Auto) [place] # (Auto) Eos # (Auto) Baso # (Auto) Abs Immat Gran (auto) Absolute Neuts (auto) Absolute Nucleated RBC Nucleated RBC % (auto) PT 17.5 H INR 1.5 H APTT VBG pH VBG pCO2 VBG pO2 VBG HCO3 VBG O2 Saturation VBG Base Excess Anion Gap 16 Estim Creat Clear Calc 70.9 Estimated GFR > 60 Random Glucose 109 D Lactic Acid Calcium 8.9 D Total Bilirubin 1.4 H AST 27 D ALT 13 Alkaline Phosphatase 268 H Troponin I High Sens 13.1 B-Natriuretic Peptide Total Protein 8.4 H D Albumin 3.7 D Urine Opiates Screen Urine Fentanyl Screen Ur Barbiturates Screen Ur Phencyclidine Scrn Ur Amphetamines Screen U Benzodiazepines Scrn Urine Cocaine Screen U Marijuana (THC) Screen Acetone, Qual Negative COVID-19 ([facility]) COVID-19 Clin Com Influenza Type A ([facility]) Influenza Type B ([facility]) Influenza A & B Note 08/02/22 08/02/22 08/02/22 20:33 20:48 20:48 MCV MCH MCHC RDW Plt Count MPV Immature Gran % (Auto) Neut % (Auto) Lymph % (Auto) [place] % (Auto) Eos % (Auto) Baso % (Auto) Lymph # (Auto) [place] # (Auto) Eos # (Auto) Baso # (Auto) Abs Immat Gran (auto) Absolute Neuts (auto) Absolute Nucleated RBC Nucleated RBC % (auto) PT INR APTT VBG pH 7.36 VBG pCO2 29 VBG pO2 57 VBG HCO3 16 L VBG O2 Saturation 83.0 VBG Base Excess -7.2 Anion Gap Estim Creat Clear Calc Estimated GFR Random Glucose Lactic Acid Calcium Total Bilirubin AST ALT Alkaline Phosphatase Troponin I High Sens B-Natriuretic Peptide Total Protein Albumin Urine Opiates Screen Urine Fentanyl Screen Ur Barbiturates Screen Ur Phencyclidine Scrn Ur Amphetamines Screen U Benzodiazepines Scrn Urine Cocaine Screen U Marijuana (THC) Screen Acetone, Qual COVID-19 ([facility]) Negative COVID-19 Clin Com See Note Influenza Type A ([facility]) Negative Influenza Type B ([facility]) Negative Influenza A & B Note See Note 08/02/22 08/03/22 08/03/22 20:48 00:50 06:19 MCV 81.2 MCH 25.0 L MCHC 30.8 L RDW 21.8 H Plt Count 163 MPV 10.6 Immature Gran % (Auto) 1.7 H Neut % (Auto) 55.2 Lymph % (Auto) 27.4 [place] % (Auto) 13.0 H Eos % (Auto) 2.3 Baso % (Auto) 0.4 Lymph # (Auto) 2.9 [place]s # (Auto) 1.4 H Eos # (Auto) 0.2 Baso # (Auto) 0.0 Abs Immat Gran (auto) 0.18 H Absolute Neuts (auto) 5.9 Absolute Nucleated RBC 0.000 Nucleated RBC % (auto) 0.0 PT INR APTT VBG pH VBG pCO2 VBG pO2 VBG HCO3 VBG O2 Saturation VBG Base Excess Anion Gap Estim Creat Clear Calc Estimated GFR Random Glucose Lactic Acid 1.8 Calcium Total Bilirubin AST ALT Alkaline Phosphatase Troponin I High Sens B-Natriuretic Peptide Total Protein Albumin Urine Opiates Screen POSITIVE H Urine Fentanyl Screen POSITIVE H Ur Barbiturates Screen Not Detected Ur Phencyclidine Scrn Not Detected Ur Amphetamines Screen Not Detected U Benzodiazepines Scrn Not Detected Urine Cocaine Screen POSITIVE H U Marijuana (THC) Screen Not Detected Acetone, Qual COVID-19 ([facility]) COVID-19 Clin Com Influenza Type A ([facility]) Influenza Type B ([facility]) Influenza A & B Note 08/03/22 06:19 MCV MCH MCHC RDW Plt Count MPV Immature Gran % (Auto) Neut % (Auto) Lymph % (Auto) [place] % (Auto) Eos % (Auto) Baso % (Auto) Lymph # (Auto) [place] # (Auto) Eos # (Auto) Baso # (Auto) Abs Immat Gran (auto) Absolute Neuts (auto) Absolute Nucleated RBC Nucleated RBC % (auto) PT INR APTT VBG pH VBG pCO2 VBG pO2 VBG HCO3 VBG O2 Saturation VBG Base Excess Anion Gap 16 Estim Creat Clear Calc 84.6 Estimated GFR > 60 Random Glucose 99 Lactic Acid Calcium 8.5 Total Bilirubin AST ALT Alkaline Phosphatase Troponin I High Sens B-Natriuretic Peptide Total Protein Albumin Urine Opiates Screen Urine Fentanyl Screen Ur Barbiturates Screen Ur Phencyclidine Scrn Ur Amphetamines Screen U Benzodiazepines Scrn Urine Cocaine Screen U Marijuana (THC) Screen Acetone, Qual COVID-19 ([facility]) COVID-19 Clin Com Influenza Type A ([facility]) Influenza Type B ([facility]) Influenza A & B Note Assessment and Plan (1) Hypoxia: Status: Acute Plan 31 yo M with a PMH of multiple complications( 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, complicated by bioprosthetic valve stenosis, septic pulmonary emboli and empyema, recurrent bacteremia and endocarditis, untreated chronic hep C, anemia, cirrhosis (by imaging) returned to ED shortly after using crack after discharge 08/02/22 with sob acute hypoxic respiratory failure due to aspiration/ acute pulmonary toxicity due to crack inhalation in patient with known septic pulmonary emboli with recent history of group b strep bacteremia in patient with bioprosthetic heart valve (due to IE) now back on room air cefepime, doxy follow up cultures echo continue xarelto blurry vision check mri polysubstance dependence restart methadone addiction team consult history of HCV with cirrhosis outpatient follow up full code reason for continued hospitalization: awaiting blood cultures in patient with high risk for bacteremia/IE Quality Stroke Does the patient have a stroke diagnosis?: No VTE Prior VTE?: Yes VTE Risk Level:: Medical - moderate - high VTE Device Contraindication: Treatment Not Indicated VTE Drug Contraindication: N/A - Med Ordered
--- NOTE | 2022-08-03 09:19 | MHC.CM.PN ---
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
[2022-08-03] MEDS: methADONE HCl 20 MG/2 ML ORAL.CONC 30 MG PO (09:32)
[2022-08-03 12:00] VITALS: BP 112/65; PULSE 97; RESP 16; TEMP 36.6; O2SAT 95
[2022-08-03] MEDS: methADONE HCl 20 MG/2 ML ORAL.CONC 10 MG PO (12:02)
--- NOTE | 2022-08-03 13:49 | P.DS_ITS ---
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 Patient complains of pleuritic chest discomfort at the time of my evaluation.? He was satting 84% on room air when he 1st came to the ER.? Patient did not take his medications since being discharged from the hospital on 08/02.? He was admitted for sepsis secondary to recent bacteremia.? Patient is extremely noncompliant with his medications and has left AMA multiple times within the last 2 months from 2 different facilities.? He admits to using 1 bag of heroin today since being discharged from the hospital.? Is also complaining of blurring of vision that started today.? No eye pain. Unable to obtain review of systems as patient is vague and difficult to be redirected. hospital course: Patient was admitted for acute hypoxic respiratory failure due to aspiration/acute pulmonary toxicity from crack and elevation in a patient with known septic pulmonary emboli with recent history of group B strep bacteremia and a history of bioprosthetic heart valve due to endocarditis. He was treated with cefepime and doxycycline, he was able to be weaned off oxygen, cultures are still pending. Echocardiogram was planned. For his blurry vision MRI was also planned. Firs polysubstance dependence he was restarted on his methadone. For his HCV was cirrhosis he should follow up outpatient. Patient decided to leave against medical advice. He was able to express his understanding of his medical condition and risks of leaving against medical advice including . Time Spent with Patient Time attestation: Total time spent providing and/or coordinating discharge services: Discharge coordination time: Greater than 30 minutes Quality: Safe Use of Opioids Does Pt have an Active Cancer Diagnosis on the Problem List?: No Quality: Stroke Does the patient have a stroke diagnosis?: No Physical Exam Vital Signs: Vital Signs: Last Vital Signs Temp 97.9 F 08/03/22 12:00 Pulse 97 08/03/22 12:00 Resp 16 08/03/22 12:00 BP 112/65 08/03/22 12:00 Pulse Ox 95 08/03/22 12:00 O2 Del Method 08/03/22 12:00 O2 Flow Rate 2 08/03/22 02:22 BMI result Body Mass Index 23.7 General: AO X 3, no acute distress, frail Resp: diminished bilateral, no accessory muscles used CVS: S1,S2,RRR GI: soft, non tender, non distended Neuro: motor grossly intact, alert Psych: appropriate affect, appropriate insight DS: Data Data Completed and Pending Completed studies during hospitalization [Text1]: Procedures Detoxification Services for Substance Abuse Treatment (11/18/21) Labs on day of discharge: Laboratory Results - last 24 hr 08/02/22 08/02/22 08/02/22 20:26 20:26 20:26 WBC 12.2 H RBC 4.27 L Hgb 10.6 L Hct 34.7 L MCV 81.3 MCH 24.8 L MCHC 30.5 L RDW 21.7 H Plt Count 190 MPV 9.5 Immature Gran % (Auto) 2.8 H Neut % (Auto) 77.8 H Lymph % (Auto) 13.7 L [place] % (Auto) 4.7 Eos % (Auto) 0.7 Baso % (Auto) 0.3 Lymph # (Auto) 1.7 [place] # (Auto) 0.6 Eos # (Auto) 0.1 Baso # (Auto) 0.0 Abs Immat Gran (auto) 0.34 H Absolute Neuts (auto) 9.5 H Absolute Nucleated RBC 0.000 Nucleated RBC % (auto) 0.0 PT INR APTT 42.7 H VBG pH VBG pCO2 VBG pO2 VBG HCO3 VBG O2 Saturation VBG Base Excess Sodium Potassium Chloride Carbon Dioxide Anion Gap BUN Creatinine Estim Creat Clear Calc Estimated GFR Random Glucose Lactic Acid Calcium Total Bilirubin AST ALT Alkaline Phosphatase Troponin I High Sens B-Natriuretic Peptide 213 H Total Protein Albumin Urine Opiates Screen Urine Fentanyl Screen Ur Barbiturates Screen Ur Phencyclidine Scrn Ur Amphetamines Screen U Benzodiazepines Scrn Urine Cocaine Screen U Marijuana (THC) Screen Acetone, Qual COVID-19 ([facility]) COVID-19 Clin Com Influenza Type A ([facility]) Influenza Type B ([facility]) Influenza A & B Note 08/02/22 08/02/22 08/02/22 20:26 20:26 20:26 WBC RBC Hgb Hct MCV MCH MCHC RDW Plt Count MPV Immature Gran % (Auto) Neut % (Auto) Lymph % (Auto) [place] % (Auto) Eos % (Auto) Baso % (Auto) Lymph # (Auto) [place] # (Auto) Eos # (Auto) Baso # (Auto) Abs Immat Gran (auto) Absolute Neuts (auto) Absolute Nucleated RBC Nucleated RBC % (auto) PT 17.5 H INR 1.5 H APTT VBG pH VBG pCO2 VBG pO2 VBG HCO3 VBG O2 Saturation VBG Base Excess Sodium 137 Potassium 5.3 H D Chloride 107 Carbon Dioxide 19 L Anion Gap 16 BUN 18 H Creatinine 1.14 Estim Creat Clear Calc 70.9 Estimated GFR > 60 Random Glucose 109 D Lactic Acid Calcium 8.9 D Total Bilirubin 1.4 H AST 27 D ALT 13 Alkaline Phosphatase 268 H Troponin I High Sens 13.1 B-Natriuretic Peptide Total Protein 8.4 H D Albumin 3.7 D Urine Opiates Screen Urine Fentanyl Screen Ur Barbiturates Screen Ur Phencyclidine Scrn Ur Amphetamines Screen U Benzodiazepines Scrn Urine Cocaine Screen U Marijuana (THC) Screen Acetone, Qual Negative COVID-19 ([facility]) COVID-19 Clin Com Influenza Type A ([facility]) Influenza Type B ([facility]) Influenza A & B Note 08/02/22 08/02/22 08/02/22 20:33 20:48 20:48 WBC RBC Hgb Hct MCV MCH MCHC RDW Plt Count MPV Immature Gran % (Auto) Neut % (Auto) Lymph % (Auto) [place] % (Auto) Eos % (Auto) Baso % (Auto) Lymph # (Auto) [place] # (Auto) Eos # (Auto) Baso # (Auto) Abs Immat Gran (auto) Absolute Neuts (auto) Absolute Nucleated RBC Nucleated RBC % (auto) PT INR APTT VBG pH 7.36 VBG pCO2 29 VBG pO2 57 VBG HCO3 16 L VBG O2 Saturation 83.0 VBG Base Excess -7.2 Sodium Potassium Chloride Carbon Dioxide Anion Gap BUN Creatinine Estim Creat Clear Calc Estimated GFR Random Glucose Lactic Acid Calcium Total Bilirubin AST ALT Alkaline Phosphatase Troponin I High Sens B-Natriuretic Peptide Total Protein Albumin Urine Opiates Screen Urine Fentanyl Screen Ur Barbiturates Screen Ur Phencyclidine Scrn Ur Amphetamines Screen U Benzodiazepines Scrn Urine Cocaine Screen U Marijuana (THC) Screen Acetone, Qual COVID-19 ([facility]) Negative COVID-19 Clin Com See Note Influenza Type A ([facility]) Negative Influenza Type B ([facility]) Negative Influenza A & B Note See Note 08/02/22 08/03/22 08/03/22 20:48 00:50 06:19 WBC 10.7 RBC 3.40 L D Hgb 8.5 L Hct 27.6 L D MCV 81.2 MCH 25.0 L MCHC 30.8 L RDW 21.8 H Plt Count 163 MPV 10.6 Immature Gran % (Auto) 1.7 H Neut % (Auto) 55.2 Lymph % (Auto) 27.4 [place] % (Auto) 13.0 H Eos % (Auto) 2.3 Baso % (Auto) 0.4 Lymph # (Auto) 2.9 [place] # (Auto) 1.4 H Eos # (Auto) 0.2 Baso # (Auto) 0.0 Abs Immat Gran (auto) 0.18 H Absolute Neuts (auto) 5.9 Absolute Nucleated RBC 0.000 Nucleated RBC % (auto) 0.0 PT INR APTT VBG pH VBG pCO2 VBG pO2 VBG HCO3 VBG O2 Saturation VBG Base Excess Sodium Potassium Chloride Carbon Dioxide Anion Gap BUN Creatinine Estim Creat Clear Calc Estimated GFR Random Glucose Lactic Acid 1.8 Calcium Total Bilirubin AST ALT Alkaline Phosphatase Troponin I High Sens B-Natriuretic Peptide Total Protein Albumin Urine Opiates Screen POSITIVE H Urine Fentanyl Screen POSITIVE H Ur Barbiturates Screen Not Detected Ur Phencyclidine Scrn Not Detected Ur Amphetamines Screen Not Detected U Benzodiazepines Scrn Not Detected Urine Cocaine Screen POSITIVE H U Marijuana (THC) Screen Not Detected Acetone, Qual COVID-19 ([facility]) COVID-19 Clin Com Influenza Type A ([facility]) Influenza Type B ([facility]) Influenza A & B Note 08/03/22 06:19 WBC RBC Hgb Hct MCV MCH MCHC RDW Plt Count MPV Immature Gran % (Auto) Neut % (Auto) Lymph % (Auto) [place] % (Auto) Eos % (Auto) Baso % (Auto) Lymph # (Auto) [place] # (Auto) Eos # (Auto) Baso # (Auto) Abs Immat Gran (auto) Absolute Neuts (auto) Absolute Nucleated RBC Nucleated RBC % (auto) PT INR APTT VBG pH VBG pCO2 VBG pO2 VBG HCO3 VBG O2 Saturation VBG Base Excess Sodium 138 Potassium 4.5 Chloride 109 H Carbon Dioxide 18 L Anion Gap 16 BUN 22 H Creatinine 1.12 Estim Creat Clear Calc 84.6 Estimated GFR > 60 Random Glucose 99 Lactic Acid Calcium 8.5 Total Bilirubin AST ALT Alkaline Phosphatase Troponin I High Sens B-Natriuretic Peptide Total Protein Albumin Urine Opiates Screen Urine Fentanyl Screen Ur Barbiturates Screen Ur Phencyclidine Scrn Ur Amphetamines Screen U Benzodiazepines Scrn Urine Cocaine Screen U Marijuana (THC) Screen Acetone, Qual COVID-19 ([facility]) COVID-19 Clin Com Influenza Type A ([facility]) Influenza Type B ([facility]) Influenza A & B Note Discharge Plan Discharge Anticipated Discharge Date/Time: 08/03/22 13:47 Patient Disposition: Left Against Medical Advice Discharge Diagnosis: aspiration Referrals: Physician,Unknown J [Primary Care Provider] - 1 Week Discharge Medications: Continued Xarelto 20 mg Tablet 20 mg PO DAILY Qty: 30 0RF Rx Instructions: must administer with evening meal amoxicillin-pot clavulanate 875-125 mg tablet 1 tab PO Q12H Qty: 28 0RF Discharge Orders: Discharge Order (Routine); Ordered 08/03/22 Ordered By: Gaurav Snowden Diet: Advance to usual diet Activity on Discharge: As tolerated Care Plan Goals: reocvery Health Concerns: septic embolic, pneumonia, polysubstance dependence Plan of Treatment: cannot properly treat out of hospital, continue augmentin, xarelto, methadone Assessment: see above
--- NOTE | 2022-08-03 13:53 | MHC.CM.PN ---
pt left ama
--- NOTE | 2022-08-03 14:02 | PHA.MEDREC ---
Pharmacy Consult ? Medication Reconciliation Pharmacy has completed the medication reconciliation. Went to perform med rec, but patient was being discharged AMA. Patient claims to be on Xarelto and Gabapentin 600mg Q4H, however no claim history to support this. States it's been a while since they last took their meds.
--- NOTE | 2022-08-03 14:19 | PC.NURSE ---
pt expressed wanting to leave against medical advise, provider notified and spoke with pt. pt is aware of risks of leaving AMA - the hospital is not liable for anything that happens to the pt on his way out. pt is A&O x 4, monitor removed, IV access removed, last dose note printed and given.
--- NOTE | 2022-08-03 19:40 | HO.ADDICTCON ---
History of Present Illness Date of Service: 08/03/22 Chief Complaint: Hypoxia Reason for Consult: substance use disorder Requesting physician: Gaurav Snowden Discussed with referring provider: Yes Sources of Information: patient interviewed and chart reviewed HPI Narrative: Mr. Marquez is a 31 year old male with a PMH of DOMINIK (including IV opiates, cocaine, alcohol and tobacco) with resultant complications including septic pulmonary emboli and empyema, recurrent bacteremia and endocarditis, untreated chronic hep C, anemia, cirrhosis (by imaging) who was brought to the emergency department for evaluation of shortness of breath.?Patient was admitted for further care and treatment. Patient is known to the recovery team, as he has had multiple presentations to this hospital, as well as hx of multiple discharges via AMA. Patient was sitting up in bed, fully alert and oriented, at 11:15am, when I met with him. Cooperative with T/W. He reports that the methadone 30mg he received this am has been somewhat helpful to manage withdrawal sx, but he continues with hot/cold flashes, generalized malaise, body aches. He reports he has been using heroin daily, via IV. Says amount varies, with as little as 1 1/2 bags, as much as a bundle if he can afford it. Patient reports he last received methadone several months ago, at [facility] clinic in [place]. Says he was receiving 65mg daily. Past Psychiatric History: Not reviewed Medical Evaluation Reviewed: Yes Review of Systems Review of Systems as per HPI Diagnostics Vital Signs (24Hr): Vital Signs - 24 hr 08/02/22 19:51 08/02/22 20:00 08/02/22 20:34 Temperature 99.1 F 99.1 F Pulse Rate 170 H 165 H 161 H Respiratory Rate 40 H 20 18 Blood Pressure 170/100 H 127/85 125/78 Pulse Oximetry 84 L 99 94 Oxygen Delivery Method Room Air Non-Rebreather Mask Nasal Cannula Oxygen Flow Rate 15 2 08/02/22 22:18 08/02/22 23:41 08/03/22 02:22 Temperature 99.0 F 97.6 F Pulse Rate 134 H 133 H 99 Respiratory Rate 25 H 27 H 17 Blood Pressure 102/60 107/72 98/59 L Pulse Oximetry 94 90 L 95 Oxygen Delivery Method Room Air Room Air Nasal Cannula Oxygen Flow Rate 2 08/03/22 03:46 08/03/22 07:46 08/03/22 12:00 Temperature 97.4 F 97 F 97.9 F Pulse Rate 99 82 97 Respiratory Rate 15 18 16 Blood Pressure 107/63 108/63 112/65 Pulse Oximetry 94 91 L 95 Oxygen Delivery Method Nasal Cannula Room Air Room Air Oxygen Flow Rate BMI result Body Mass Index 23.7 Labs Results: 08/03/22 06:19 08/03/22 06:19 Labs: Laboratory Results - last 48 hr 08/02/22 08/02/22 08/02/22 20:26 20:26 20:26 WBC 12.2 H RBC 4.27 L Hgb 10.6 L Hct 34.7 L MCV 81.3 MCH 24.8 L MCHC 30.5 L RDW 21.7 H Plt Count 190 MPV 9.5 Immature Gran % (Auto) 2.8 H Neut % (Auto) 77.8 H Lymph % (Auto) 13.7 L [place] % (Auto) 4.7 Eos % (Auto) 0.7 Baso % (Auto) 0.3 Lymph # (Auto) 1.7 [place] # (Auto) 0.6 Eos # (Auto) 0.1 Baso # (Auto) 0.0 Abs Immat Gran (auto) 0.34 H Absolute Neuts (auto) 9.5 H Absolute Nucleated RBC 0.000 Nucleated RBC % (auto) 0.0 PT INR APTT 42.7 H VBG pH VBG pCO2 VBG pO2 VBG HCO3 VBG O2 Saturation VBG Base Excess Sodium Potassium Chloride Carbon Dioxide Anion Gap BUN Creatinine Estim Creat Clear Calc Estimated GFR Random Glucose Lactic Acid Calcium Total Bilirubin AST ALT Alkaline Phosphatase Troponin I High Sens B-Natriuretic Peptide 213 H Total Protein Albumin Urine Opiates Screen Urine Fentanyl Screen Ur Barbiturates Screen Ur Phencyclidine Scrn Ur Amphetamines Screen U Benzodiazepines Scrn Urine Cocaine Screen U Marijuana (THC) Screen Acetone, Qual COVID-19 ([facility]) COVID-19 Clin Com Influenza Type A ([facility]) Influenza Type B ([facility]) Influenza A & B Note 08/02/22 08/02/22 08/02/22 20:26 20:26 20:26 WBC RBC Hgb Hct MCV MCH MCHC RDW Plt Count MPV Immature Gran % (Auto) Neut % (Auto) Lymph % (Auto) [place] % (Auto) Eos % (Auto) Baso % (Auto) Lymph # (Auto) [place] # (Auto) Eos # (Auto) Baso # (Auto) Abs Immat Gran (auto) Absolute Neuts (auto) Absolute Nucleated RBC Nucleated RBC % (auto) PT 17.5 H INR 1.5 H APTT VBG pH VBG pCO2 VBG pO2 VBG HCO3 VBG O2 Saturation VBG Base Excess Sodium 137 Potassium 5.3 H D Chloride 107 Carbon Dioxide 19 L Anion Gap 16 BUN 18 H Creatinine 1.14 Estim Creat Clear Calc 70.9 Estimated GFR > 60 Random Glucose 109 D Lactic Acid Calcium 8.9 D Total Bilirubin 1.4 H AST 27 D ALT 13 Alkaline Phosphatase 268 H Troponin I High Sens 13.1 B-Natriuretic Peptide Total Protein 8.4 H D Albumin 3.7 D Urine Opiates Screen Urine Fentanyl Screen Ur Barbiturates Screen Ur Phencyclidine Scrn Ur Amphetamines Screen U Benzodiazepines Scrn Urine Cocaine Screen U Marijuana (THC) Screen Acetone, Qual Negative COVID-19 ([facility]) COVID-19 Clin Com Influenza Type A ([facility]) Influenza Type B ([facility]) Influenza A & B Note 08/02/22 08/02/22 08/02/22 20:33 20:48 20:48 WBC RBC Hgb Hct MCV MCH MCHC RDW Plt Count MPV Immature Gran % (Auto) Neut % (Auto) Lymph % (Auto) [place] % (Auto) Eos % (Auto) Baso % (Auto) Lymph # (Auto) [place] # (Auto) Eos # (Auto) Baso # (Auto) Abs Immat Gran (auto) Absolute Neuts (auto) Absolute Nucleated RBC Nucleated RBC % (auto) PT INR APTT VBG pH 7.36 VBG pCO2 29 VBG pO2 57 VBG HCO3 16 L VBG O2 Saturation 83.0 VBG Base Excess -7.2 Sodium Potassium Chloride Carbon Dioxide Anion Gap BUN Creatinine Estim Creat Clear Calc Estimated GFR Random Glucose Lactic Acid Calcium Total Bilirubin AST ALT Alkaline Phosphatase Troponin I High Sens B-Natriuretic Peptide Total Protein Albumin Urine Opiates Screen Urine Fentanyl Screen Ur Barbiturates Screen Ur Phencyclidine Scrn Ur Amphetamines Screen U Benzodiazepines Scrn Urine Cocaine Screen U Marijuana (THC) Screen Acetone, Qual COVID-19 ([facility]) Negative COVID-19 Clin Com See Note Influenza Type A ([facility]) Negative Influenza Type B ([facility]) Negative Influenza A & B Note See Note 08/02/22 08/03/22 08/03/22 20:48 00:50 06:19 WBC 10.7 RBC 3.40 L D Hgb 8.5 L Hct 27.6 L D MCV 81.2 MCH 25.0 L MCHC 30.8 L RDW 21.8 H Plt Count 163 MPV 10.6 Immature Gran % (Auto) 1.7 H Neut % (Auto) 55.2 Lymph % (Auto) 27.4 [place] % (Auto) 13.0 H Eos % (Auto) 2.3 Baso % (Auto) 0.4 Lymph # (Auto) 2.9 [place] # (Auto) 1.4 H Eos # (Auto) 0.2 Baso # (Auto) 0.0 Abs Immat Gran (auto) 0.18 H Absolute Neuts (auto) 5.9 Absolute Nucleated RBC 0.000 Nucleated RBC % (auto) 0.0 PT INR APTT VBG pH VBG pCO2 VBG pO2 VBG HCO3 VBG O2 Saturation VBG Base Excess Sodium Potassium Chloride Carbon Dioxide Anion Gap BUN Creatinine Estim Creat Clear Calc Estimated GFR Random Glucose Lactic Acid 1.8 Calcium Total Bilirubin AST ALT Alkaline Phosphatase Troponin I High Sens B-Natriuretic Peptide Total Protein Albumin Urine Opiates Screen POSITIVE H Urine Fentanyl Screen POSITIVE H Ur Barbiturates Screen Not Detected Ur Phencyclidine Scrn Not Detected Ur Amphetamines Screen Not Detected U Benzodiazepines Scrn Not Detected Urine Cocaine Screen POSITIVE H U Marijuana (THC) Screen Not Detected Acetone, Qual COVID-19 ([facility]) COVID-19 Clin Com Influenza Type A ([facility]) Influenza Type B ([facility]) Influenza A & B Note 08/03/22 06:19 WBC RBC Hgb Hct MCV MCH MCHC RDW Plt Count MPV Immature Gran % (Auto) Neut % (Auto) Lymph % (Auto) [place] % (Auto) Eos % (Auto) Baso % (Auto) Lymph # (Auto) [place] # (Auto) Eos # (Auto) Baso # (Auto) Abs Immat Gran (auto) Absolute Neuts (auto) Absolute Nucleated RBC Nucleated RBC % (auto) PT INR APTT VBG pH VBG pCO2 VBG pO2 VBG HCO3 VBG O2 Saturation VBG Base Excess Sodium 138 Potassium 4.5 Chloride 109 H Carbon Dioxide 18 L Anion Gap 16 BUN 22 H Creatinine 1.12 Estim Creat Clear Calc 84.6 Estimated GFR > 60 Random Glucose 99 Lactic Acid Calcium 8.5 Total Bilirubin AST ALT Alkaline Phosphatase Troponin I High Sens B-Natriuretic Peptide Total Protein Albumin Urine Opiates Screen Urine Fentanyl Screen Ur Barbiturates Screen Ur Phencyclidine Scrn Ur Amphetamines Screen U Benzodiazepines Scrn Urine Cocaine Screen U Marijuana (THC) Screen Acetone, Qual COVID-19 ([facility]) COVID-19 Clin Com Influenza Type A ([facility]) Influenza Type B ([facility]) Influenza A & B Note Imaging Radiology Impressions: ITS Impressions Chest X-Ray 08/02/22 21:05 IMPRESSION: No significant interval changes above. Bilateral infiltrates persist. Head CT 08/02/22 22:10 IMPRESSION: No acute intracranial pathology. Chest CTA 08/02/22 22:25 IMPRESSION: Moderate acute appearing pulmonary artery embolism as above. Multiple irregular lesions some which are cavitating. These are nonspecific but may be on the basis of potentially septic emboli or cavitary metastatic disease from squamous cell carcinoma. Pulmonary infarcts are felt to be less likely based on appearance and distribution. Pulmonary medicine consultation recommended. This critical result was provided by filter tip inspector staff at approximately 11:15 p.m. on the date of exam. VTE: positive Mental Status Exam Mental Status Exam Patient Appearance: Disheveled and Unkempt Patient Orientation: Person, Place, Time and Situation Level of Consciousness: Awake and Alert Patient Behavior: Cooperative Mood Description: Anxious Affect Description: Anxious Patient Cognition Impaired: No Ability to Follow Directions: Good Speech Pattern: Appropriate Memory Description: Intact Hallucinations: None Delusions: Not Present Thought Process: Intact Thought Content: positive for Intact Depressive Symptoms: Increased Anxiety Judgement: Fair Medications Allergies Allergies Allergy/AdvReac Type Severity Reaction Status Date / Time No Known Allergies Allergy Verified 06/25/22 07:02 [No Known Allergies*] Assessment & Plan Assessment & Plan (1) Opioid use disorder, severe, dependence: Status: Acute Code(s): F11.20 - Opioid dependence, uncomplicated Plan 1. methadone 10mg ordered for 12:00 noon today. 2. prn methadone 5mg ordered for this evening. 3. Recovery team to follow this patient along with you. This information has been shared directly with Dr. Snowden. Thank you I spent minutes with the patient and/or on the patient floor today, greater than?50% of which was spent counseling/coordinating care. Patient educated on: diagnosis, medication risk/benefits and substance abuse Informed Consent: understands [facility] Past Medical History Medical History Anasarca Bacteremia Bacteremia Endocarditis HCV (hepatitis C virus) Pulmonary embolism Right heart failure Steatosis, liver Tricuspid valve stenosis Psychiatric History: Substance Abuse History Surgical History Surgical History History of tricuspid valve replacement with bioprosthetic valve Social History Social History Household Members: None Household Members Other:: none. homeless Housing: Homeless Do you presently have visiting nurse or other home services: No Unable to assess alcohol history related to: Unknown Alcohol intake: never Patient Tobacco Use Status: Current everyday Tobacco user Tobacco use type: Cigarette Cigarette Packs Per Day: 1 Cigarettes Per Day: 20.0 Years Smoked: 10 Second Hand Smoke Exposure: No Substance Use Type: Crack/Cocaine and Opiates Advance Directives Date on File: 04/16/21 service: No Current occupational status: unemployed
== END 2022-08-03 14:15 | disposition left against medical advice (07) | DRG 816 ==
LOC: HO.ED 08-03 00:41 → HO.EDOVER 08-03 01:21 → HO.S3 08-03 01:31 → HO.IMC 08-03 11:30
PROVIDERS: Admitting Provider Student in an Organized Health Care Education/Training Program; Emergency Provider Student in an Organized Health Care Education/Training Program; PCP Registered Nurse; Visit Provider Internal Medicine
DX: T40.5X1A Poisoning by cocaine, accidental (unintentional), initial encounter (principal); I26.99 Other pulmonary embolism without acute cor pulmonale; J96.01 Acute respiratory failure with hypoxia; B95.1 Streptococcus, group B, as the cause of diseases classified elsewhere; R78.81 Bacteremia; B19.20 Unspecified viral hepatitis C without hepatic coma; F11.20 Opioid dependence, uncomplicated; F17.210 Nicotine dependence, cigarettes, uncomplicated; F19.10 Other psychoactive substance abuse, uncomplicated; Z20.822 Contact with and (suspected) exposure to COVID-19; Z91.14 Patient's other noncompliance with medication regimen; Z71.6 Tobacco abuse counseling; Z59.02 Unsheltered homelessness; Z95.2 Presence of prosthetic heart valve; Z79.01 Long term (current) use of anticoagulants
CPT/HCPCS: 36415; 70450; 71045; 71275; 80048; 80053; 80307; 82009; 82803; 83605; 83880; 84484; 85025; 85610; 85730; 87040; 87502; 87635; 93005; 99285; J0692; J1650; Q9967

== ENCOUNTER 2023-02-24 06:44 | Emergency (ER) | payer MEDICAID, SELFPAY ==
[2023-02-24] VITALS (8 sets, daily range): BP systolic 115–140; BP diastolic 71–91; PULSE 71–96; RESP 16–20; TEMP 36.6–36.9; O2SAT 92–100; BMI 23.3
--- NOTE | 2023-02-24 06:59 | ED.GENADULT ---
HPI - General Adult General Chief complaint: Overdose Stated complaint: drug use Time Seen by Provider: 02/24/23 06:59 Source: patient and EMS Mode of arrival: EMS Limitations: no limitations History of Present Illness HPI narrative: Patient is a 32 year old assigned male at with a history of substance abuse and endocarditis presenting to the emergency department today after PCP use. Patient states that he used PCP and was hanging out in a store when the store senior staff psychologist called EMS. Patient denies any dizziness, lightheadedness, abdominal pain, nausea, vomiting, fever, chills, blurry vision, double vision, loss of vision, chest pain, difficulty breathing, shortness of breath, back pain, night sweats, pain with urination, increased urinary frequency, increased urinary urgency, blood in his urine or stool, syncope or a near syncopal episode, recent trauma or falls, bowel incontinence, bladder incontinence, bowel retention, bladder retention, or any other complaints at this time. Severity: mild Relieving factors: none Exacerbating factors: none Associated symptoms: denies other symptoms Treatments prior to arrival: none Related Data Previous Rx's Medication Instructions Recorded amoxicillin 875 mg-potassium 1 tab PO Q12H #28 tabs 08/02/22 clavulanate 125 mg tablet rivaroxaban 20 mg tablet (Xarelto) 20 mg PO DAILY #30 tabs 08/02/22 Allergies Allergy/AdvReac Type Severity Reaction Status Date / Time No Known Allergies Allergy Verified 02/24/23 07:00 [No Known Allergies*] Review of Systems Constitutional: Constitutional: Reports no additional constitutional complaints, Denies chills, Denies fever(s) and Denies night sweats Eyes: Eyes: Reports no additional eye complaints, Denies blurry vision, Denies change in vision, Denies diplopia, Denies eye discharge, Denies loss of vision and Denies eye pain ENT: Denies dizziness Cardiovascular: Cardiovascular: Reports no additional cardiovascular complaints, Denies chest pain, Denies lightheadedness, Denies Loss of Consciousness and Denies dyspnea Respiratory: Respiratory: Reports no additional respiratory complaints and Denies dyspnea Gastrointestinal: Gastrointestinal: Reports no additional gastrointestinal complaints, Denies abdominal pain, Denies melena, Denies hematochezia, Denies change in bowel habits and Denies change in stool character Genitourinary: Genitourinary: Reports no additional male genitourinary complaints, Denies hematuria, Denies oliguria, Denies difficulty urinating, Denies dysuria, Denies urinary frequency, Denies urinary hesitancy, Denies urinary incontinence and Denies urinary urgency Musculoskeletal: Musculoskeletal: Reports no additional musculoskeletal complaints, Denies numbness and Denies tingling Neurologic: Denies dizziness, Denies loss of vision, Denies numbness and Denies tingling Psychiatric: Psychiatric: Reports no additional psychiatric complaints Endocrine: Endocrine: Reports no additional endocrine complaints Hematologic/Lymphatic: Hematologic/Lymphatic: Reports no additional hematologic/lymphatic complaints Allergic/Immunologic: Allergic/Immunologic: Reports no additional allergic/immunologic complaints [facility] Past Medical History Attestation statement: The following information was validated with the patient. Source: old records reviewed and nursing notes reviewed Medical History Anasarca Bacteremia Bacteremia Endocarditis HCV (hepatitis C virus) Pulmonary embolism Right heart failure Steatosis, liver Tricuspid valve stenosis Surgical History History of tricuspid valve replacement with bioprosthetic valve Social History Social History Household Members: None Household Members Other:: none. homeless Housing: Homeless Do you presently have visiting nurse or other home services: No Unable to assess alcohol history related to: Unknown Alcohol intake: never Patient Tobacco Use Status: Current everyday Tobacco user Tobacco use type: Cigarette Cigarette Packs Per Day: 1 Cigarettes Per Day: 20.0 Years Smoked: 10 Second Hand Smoke Exposure: No Substance Use Type: Crack/Cocaine and Opiates Advance Directives Date on File: 04/16/21 service: No Current occupational status: unemployed Physical Exam ED Vital Signs: Vital Signs - 24 hr 02/24/23 07:01 02/24/23 08:54 02/24/23 11:07 Temperature 98.4 F Pulse Rate 79 71 91 Respiratory Rate 18 20 16 Blood Pressure 130/85 124/91 H 127/78 Pulse Oximetry 95 96 92 Oxygen Delivery Method Room Air Room Air Room Air 02/24/23 14:34 Temperature Pulse Rate 77 Respiratory Rate 18 Blood Pressure 115/71 Pulse Oximetry 99 Oxygen Delivery Method Room Air BMI result Body Mass Index 23.3 Const General: cooperative, no acute distress, alert and awake Nutritional Appearance: well nourished Orientation/consciousness: patient oriented x3 Limitations: no limitations HENMT Head: Yes normal to inspection and Yes atraumatic Ears: hearing grossly normal bilaterally and external ears normal General nose exam: Normal external nose present, no nasal discharge noted and no epistaxis Face and sinus: Yes normal facial exam, No abrasion and No laceration Mouth: Normal oral and palatal mucosa present, no drooling and no muffled voice Eyes General: appearance normal, both eyes and all related structures Periorbital: periorbital findings normal Eyelids: Yes eyelids normal Conjunctivae: conjunctivae normal Pupils: Equal, round and reactive pupils present EOM: EOMs intact bilaterally Neck Neck: Yes normal visual inspection, Yes full ROM and Yes no lymphadenopathy Chest Chest palpation & inspection: normal inspection of the chest Resp Effort & Inspection: normal respiratory effort and able to speak in complete sentences Auscultation: clear to auscultation bilaterally Cardio Rate: regular rate Rhythm: regular rhythm GI Inspection: Yes normal to inspection Palpation (GI): Soft to palpation, not firm, nontender and no guarding Neuro General: patient oriented x3 and moves all extremities Cranial nerves: Yes Equal, round and reactive pupils present Cognition (Neuro): normal cognition Motor exam (neuro): 5/5 motor strength present throughout Sensory Exam: Normal double simultaneous stimulation for sensation Coordination: [id number] test normal Extrem General: Yes normal to inspection, Yes full ROM and Yes capillary refill normal Psych Appearance: grossly normal Mental Status: mental status grossly normal Affect: normal affect Attitude: cooperative Thought process: Normal thought process present Thought content: Normal thought content present Insight: Good insight present (Psych) Medications Administered Discontinued Medications Generic Name Dose Route Start Last Admin Trade Name Denzelq PRN Reason Stop Dose Admin Lorazepam 2 mg 02/24/23 07:00 02/24/23 09:34 Lorazepam 1 Mg Tablet PO 02/24/23 07:01 2 mg ONCE ONE Administration Medical Decision Making Medical Decision Making [facility] Narrative: Patient is a 32 year old assigned male at with a history of substance abuse presenting to the emergency department today with recent PCP use. Patient's physical exam was unremarkable. Patient is currently sleeping and awaiting evaluation by the recovery team. I explained my physical exam findings to the patient. I answered all questions asked by the patient. Patient was placed in physician observation as he awaited evaluation by the recovery team. Patient declined any services from the recovery team. Patient cleared for discharge. Differential Diagnosis Differential Diagnoses: The differential diagnosis associated with the presentation includes PCP use Independent Historian Clinical information obtained from an independent historian. History obtained from or confirmed by: EMS Discharge Plan Discharge Clinical Impression: Phencyclidine (PCP) use disorder, mild, abuse Patient Disposition: Home, Self-Care Instructions: Polysubstance Abuse (ED) Additional Instructions: Follow up with your primary care provider. Return to the emergency department immediately if your symptoms worsen or if you develop any dizziness, shortness of breath, difficulty breathing, chest pain, blurry vision, loss of vision, nausea, vomiting, abdominal pain, fever, chills, back pain, or any other complaints. Prescriptions: No Action Xarelto 20 mg Tablet 20 mg PO DAILY Qty: 30 0RF Rx Instructions: must administer with evening meal amoxicillin-pot clavulanate 875-125 mg tablet 1 tab PO Q12H Qty: 28 0RF Referrals: [facility] [Provider Group] (Call to establish and follow up with a primary care provider. If you already have a primary care provider, please follow up with them.) [facility] [Provider [facility]] (Call to establish and follow up with a primary care provider. If you already have a primary care provider, please follow up with them.) [facility] [Provider [facility]] (Call to establish and follow up with a primary care provider. If you already have a primary care provider, please follow up with them.) Print Language: Malay
[2023-02-24] MEDS: LORazepam 1 MG TABLET 2 MG PO (09:34)
--- NOTE | 2023-02-24 15:36 | MHC.RECOVSUP ---
Met with pt in ED22H for potential ATS bed search. Pt states he is not interested in ATS and just wants to go home and keep going to [facility] for his Methadone. Pt has no other questions or concerns at this time.
[2023-02-25] VITALS: BP 98/71; PULSE 105; RESP 16; TEMP 36.4; O2SAT 96
[2023-02-25 02:00] VITALS: TEMP 36.9; O2SAT 98
[2023-02-25 03:55] LABS: Appearance Urine Clear; Color Urine Dark Yellow; Glucose Urine UA Negative (Negative); Leukocyte Esterase Urine Negative (Negative); Nitrite Urine Negative (Negative); Urine Blood Negative (Negative); Urine Ketones 40 mg/dL (Negative); Urine Protein Trace mg/dL (Neg-Trace)
[2023-02-25 04:04] LABS: Amphetamine Screen Urine Not Detected (Not Detect); Barbiturates, Urine Not Detected (Not Detect); Benzodiazepines Screen Urine POSITIVE (Not Detect); Cannabinoid Screen Urine POSITIVE (Not Detect); Cocaine Screen Urine POSITIVE (Not Detect); Fentanyl, urine POSITIVE (Not Detect); Opiate Screen Urine POSITIVE (Not Detect); Phencyclidine Screen Urine Not Detected (Not Detect)
[2023-02-25 04:05] LABS: Bacteria Urine None Seen (None Seen); Hyaline Casts Urine 0-2 /LPF (0-2); Squamous Epithelial Cell Urine 0-2 /HPF (0-2); WBC Urine 0-5 /HPF (0-5)
[2023-02-25 06:17] VITALS: BP 107/60; PULSE 104; RESP 17; TEMP 36.6; O2SAT 95
[2023-02-25 12:10] VITALS: BP 107/60; PULSE 104; RESP 17; TEMP 36.6; O2SAT 95
--- NOTE | 2023-02-25 12:12 | PC.NURSE ---
PT BECAME AGGRESSIVE WITH STAFF CALLING US BITCHES BECAUSE WE DIDN'T HAVE BUS PASSES OR VOUCHERS AND INFORMED HIM OF THAT. AND BECAUSE HE IS BEING DISCHARGED.
== END 2023-02-25 12:20 | disposition home or self-care (01) ==
PROVIDERS: Emergency Provider Emergency Medicine
DX: F16.19 Hallucinogen abuse with unspecified hallucinogen-induced disorder (principal); F11.20 Opioid dependence, uncomplicated; B19.20 Unspecified viral hepatitis C without hepatic coma; Z95.4 Presence of other heart-valve replacement; Z79.01 Long term (current) use of anticoagulants
CPT/HCPCS: 80307; 81001; 99285

== ENCOUNTER 2023-03-02 18:17 | Inpatient (IN) | payer MEDICAID, SELFPAY ==
[2023-03-02] VITALS (7 sets, daily range): BP systolic 101–129; BP diastolic 57–109; PULSE 95–126; RESP 16–22; O2SAT 93–100; BMI 24.0
--- NOTE | ~2023-03-02 | CT_ITS ---
EXAMINATION: Head and cervical spine CT without IV contrast CLINICAL INFORMATION: Fall COMPARISON: Previous head CT July 2022 TECHNIQUE: Axial images through the head and cervical spine without IV contrast. Sagittal and coronal reconstructions on the technologist workstation were performed. This CT examination was performed using dose optimization techniques as appropriate, variously including the following: *Automated exposure control *Adjustment of mA and/or kV according to patient size (this includes techniques or standardized protocols for targeted exams where dose is matched to indication/reason for exam; i.e. extremities or head) *Use of iterative reconstruction technique DLP 696+4 4 2 mg/cm FINDINGS: Head CT: There is no evidence of an extra-axial collection. There is no evidence of intra or extra-axial hemorrhage. Ventricles and extra-axial CSF spaces are appropriate. Daley-white matter differentiation is normal. No mass, mass effect or infarct. No skull fracture. Cervical spine CT: Bone alignment is normal. No fracture or dislocation. Disc spaces are normal. Prevertebral soft tissues are normal. There is biapical pleural parenchymal scarring. CT/CT head/brain wo IV con IMPRESSION: Unremarkable examination.
--- NOTE | ~2023-03-02 | CT_ITS ---
EXAMINATION: CT CHEST, ABDOMEN AND PELVIS WITH CONTRAST. CLINICAL INFORMATION: Fall. Trauma. COMPARISON: 08/02/2022 CT scan. TECHNIQUE: Multidetector volumetric imaging was performed from the thoracic inlet through the pubic symphysis following administration of 100 mL Omnipaque 300 intravenous contrast. Sagittal and coronal reformatted images were obtained on the technologist's workstation. This CT examination was performed using dose optimization techniques as appropriate, variously including the following: *Automated exposure control *Adjustment of mA and/or kV according to patient size (this includes techniques or standardized protocols for targeted exams where dose is matched to indication/reason for exam; i.e. extremities or head) *Use of iterative reconstruction technique DLP: 1085 mGy-cm FINDINGS: CHEST: Lung: Focal airspace disease in the anterior aspect of the left upper lobe more likely represents an area of contusion in the setting of trauma. There are bilateral linear changes more likely reflecting a component of atelectasis. The previously noted cavitary lung lesions have improved with mild residual postinfectious/postinflammatory scarring suggested currently. Mild dependent airspace changes in the dependent lower lobes could reflect component of atelectasis. Mediastinum: Patient status post sternotomy and epicardial pacing wires are seen. No bulky adenopathy. Right atrium is enlarged. Tricuspid valve hardware noted. No bulky adenopathy. Pericardium/Pleura: No significant effusion. No pleural mass or thickening. Chest Wall/Axilla: Unremarkable. ABDOMEN/PELVIS: Peritoneal Space:No significant free air or free fluid identified. Liver, Gallbladder, Biliary Tree: The liver is normal in size, shape, and attenuation. No focal hepatic lesion or biliary ductal dilatation is present. The gallbladder is relatively distended with a small amount of pericholecystic fluid but otherwise unremarkable with no evidence of radiopaque gallstones, gallbladder wall thickening, or obvious pericholecystic inflammatory changes. Pancreas: Pancreas is homogeneous in attenuation. No pancreatic ductal dilatation. There is a small amount of peripancreatic fluid seen in the region the pancreatic head although the epicenter this is more in the periportal region. Correlation with amylase and lipase may be helpful. Spleen: Unremarkable. Adrenal Glands: Unremarkable. Kidneys and Ureters: The kidneys are normal in size, shape, and attenuation. No hydronephrosis, hydroureter, or calculi seen. No perinephric stranding. Bladder: Unremarkable. Gastrointestinal Tract: The small and large bowel are unremarkable. The appendix is presumably surgically absent. Abdominal Wall: No significant hernia is appreciated. Lymphovascular Structures: Mild vascular calcification within the aorta iliac system. Small amount of fluid is seen in the periportal region extending to the pericaval location but I do not appreciate any evidence for contrast extravasation or leakage. Pelvic Viscera: Unremarkable. Osseus Structures: I do not appreciate any acute fracture or dislocation. Degenerative changes are seen within the bilateral sacroiliac joints. Status post sternotomy Spine: Normal anatomic alignment. No acute fracture or spondylolisthesis seen. Vertebral body heights and disc heights appear preserved. CT/CT abdomen pelvis w IV con IMPRESSION: I do not appreciate any acute fracture or definitive solid organ injury. There is a small amount of nonspecific fluid seen in the periportal and pericaval region. Etiology of this is uncertain. Correlation with amylase and lipase levels would be recommended. I do not appreciate any contrast extravasation. Vascular injury would be considered much less likely in this location. If there is persistent clinical concern, follow-up abdominal imaging can be obtained to assure stability of this subtle finding over time
--- NOTE | ~2023-03-02 | XR_ITS ---
EXAMINATION: XR CHEST CLINICAL INFORMATION: Post ET tube placement. History of fall/trauma. COMPARISON: Previous chest x-ray and chest CT from yesterday TECHNIQUE: Frontal view of the chest was obtained. FINDINGS: There is an endotracheal tube with tip 5 cm above the estela. There is a nasogastric tube with tip projecting over the stomach. There is a right jugular line with tip projecting over the SVC. The cardiac and mediastinal contours are stable. There is faint increased attenuation in the lungs increased from yesterday's exam. There is no pleural effusion or pneumothorax. There is a sternotomy with wire cerclage wires and plates and screws. XR/XR chest 1V IMPRESSION: Satisfactory position of support line and tubes. Increasing attenuation in the lungs. Differential would include pneumonitis, pulmonary edema and contusion given history of trauma.
--- NOTE | ~2023-03-02 | CT_ITS ---
EXAMINATION: Head and cervical spine CT without IV contrast CLINICAL INFORMATION: Fall COMPARISON: Previous head CT July 2022 TECHNIQUE: Axial images through the head and cervical spine without IV contrast. Sagittal and coronal reconstructions on the technologist workstation were performed. This CT examination was performed using dose optimization techniques as appropriate, variously including the following: *Automated exposure control *Adjustment of mA and/or kV according to patient size (this includes techniques or standardized protocols for targeted exams where dose is matched to indication/reason for exam; i.e. extremities or head) *Use of iterative reconstruction technique DLP 696+4 4 2 mg/cm FINDINGS: Head CT: There is no evidence of an extra-axial collection. There is no evidence of intra or extra-axial hemorrhage. Ventricles and extra-axial CSF spaces are appropriate. Daley-white matter differentiation is normal. No mass, mass effect or infarct. No skull fracture. Cervical spine CT: Bone alignment is normal. No fracture or dislocation. Disc spaces are normal. Prevertebral soft tissues are normal. There is biapical pleural parenchymal scarring. CT/CT cervical spine wo IV con IMPRESSION: Unremarkable examination.
--- NOTE | ~2023-03-02 | XR_ITS ---
EXAMINATION: XR CHEST CLINICAL INFORMATION: SOB. COMPARISON: None available. TECHNIQUE: Frontal view of the chest was obtained. FINDINGS: The lungs are well-expanded and clear of acute process. The heart size and perivascular is normal. No gross bony abnormality seen. XR/XR chest 1V IMPRESSION: Unremarkable chest examination.
--- NOTE | ~2023-03-02 | US_ITS ---
EXAMINATION: US ABDOMEN LIMITED CLINICAL INFORMATION: Portal vein Doppler. COMPARISON: None available. TECHNIQUE: Real-time imaging of the right upper quadrant abdominal viscera. FINDINGS: PANCREAS: The head and body of the pancreas is homogeneous in echotexture. The tail is obscured by overlying gas LIVER: The liver is enlarged in size measuring 20 cm. The liver contour is normal. Parenchymal echogenicity is increased . No focal hepatic lesion. There is no intrahepatic biliary duct dilatation seen. On Doppler exam there is normal hepatopedal flow GALLBLADDER: Normal. The gallbladder is physiologically distended without evidence of stones, sludge, polyps, wall thickening or pericholecystic fluid. COMMON BILE DUCT: Normal in caliber measuring 0.6 cm in diameter. RIGHT KIDNEY: Normal. No hydronephrosis. No renal calculi or focal parenchymal lesions. The kidney measures 10.7 cm in maximum dimension. FREE FLUID: Minimal perihepatic free fluid. US/US abdomen limited IMPRESSION: 1. Diffusely echogenic liver without focal lesion. 2. Visualized gallbladder, CBD, right kidney and visualized pancreas is unremarkable.
--- NOTE | 2023-03-02 18:28 | ECG_ITS ---
Test Reason : overdose Blood Pressure : / mmHG Vent. Rate : 109 BPM Atrial Rate : 109 BPM P-R Int : 134 ms QRS Dur : 092 ms QT Int : 414 ms P-R-T Axes : 080 072 062 degrees QTc Int : 557 ms Sinus tachycardia Possible Left atrial enlargement Incomplete right bundle branch block T wave abnormality, consider anterior ischemia Prolonged QT Abnormal ECG When compared with ECG of 02-AUG-2022 20:24, Incomplete right bundle branch block is now Present Anterior T wave inversions present Referred By: Fartun Rico Electronically Signed By:Pedro Chang
--- NOTE | 2023-03-02 18:59 | MHC.EDTECH ---
Unable to do the EKG OR Blood work at this time due to the Patient moving around and unable to stay still PA was Notify
[2023-03-02 19:38] LABS: MANUAL DIFF FLAG NO
[2023-03-02 19:48] LABS: COVID-19 Test Negative (Negative); IDNOW Serial# 08D9AD1C
[2023-03-02 19:53] LABS: Imm Gran Abs Auto 0.08 X10*3/uL (0.00-0.03); Imm Gran Pct Auto 0.7 % (0.0-0.4); Mean Corpuscular HGB Conc 32.1 g/dl (31.0-36.0); SCAN SMEAR FLAG 1
[2023-03-02 19:55] LABS: Basophils Absolute Auto 0.1 X10*3/uL (0.0-0.2); Basophils Percent Auto 0.4 % (0-2); Eosinophils Percent Auto 0.2 % (0-4); Hematocrit 34.3 % (42.0-52.0); Lymphocytes Percent Auto 16.8 % (20-40); Mean Corpuscular Volume 68.7 fL (80.0-98.0); Monocytes Absolute Auto 1.5 X10*3/uL (0.1-1.2); Monocytes Percent Auto 13.1 % (2-11); NRBC Pct Auto 0.2 /100WBC (0.0-0.2); Neutrophils Percent Auto 68.8 % (45-73); Platelet Count 196 X10*3/uL (160-400); Red Blood Count 4.99 X10*6/uL (4.60-5.80); Red Cell Distribution Width 23.8 % (11.0-16.0); White Blood Count 11.6 X10*3/uL (4.8-10.8)
[2023-03-02 19:58] LABS: PLT ABN DIST 1
[2023-03-02 20:00] LABS: Ethanol < 10 mg/dL
--- NOTE | 2023-03-02 20:00 | PC.NURSE ---
This underwriter mortgage loan assumed care of this Pt at 1900. Pt uncooperative, agitated, not following verbal command, trashing all over the bed, rambling words. IV line established, blood work collected and sent to lab. Pt medicated as ordered.
[2023-03-02] MEDS: diphenhydrAMINE HCL 50 MG/ML VIAL IVPUSH (20:01)
[2023-03-02] MEDS: LORazepam 2 MG/ML VIAL 1 MG IVPUSH (20:02)
[2023-03-02 20:09] LABS: Troponin-I High Sensitivity 23.4 ng/L (<3.5-35.0)
--- NOTE | 2023-03-02 20:11 | ED_ITS ---
HPI - Overdose General Chief Complaint: Overdose Stated Complaint: OD ? SOB Time Seen by Provider: 03/02/23 18:25 Source: EMS Mode of arrival: EMS Limitations: altered mental status History of Present Illness HPI Narrative: This is a 32-year-old male history of pulmonary embolism on Xarelto, endocarditis, tricuspid valve replacement, polysubstance abuse, hepatitis-C presenting to the emergency department with altered mental status and suspected drug use. Patient was found outside by a bystander lying on the ground, surrounded with drugs and a bottle of Xarelto. Patient is altered upon arrival, not cooperative, not following commands unable to provide me with history or review of systems. No evident signs of trauma on exam. Related Data Previous Rx's Medication Instructions Recorded amoxicillin 875 mg-potassium 1 tab PO Q12H #28 tabs 08/02/22 clavulanate 125 mg tablet rivaroxaban 20 mg tablet (Xarelto) 20 mg PO DAILY #30 tabs 08/02/22 Allergies Allergy/AdvReac Type Severity Reaction Status Date / Time No Known Allergies Allergy Verified 03/02/23 18:45 [No Known Allergies*] Review of Systems Review of Systems: Yes Unobtainable due to mental status PMFSH Past Medical History Attestation statement: The following information was validated with the patient. Source: old records reviewed and nursing notes reviewed Medical History Anasarca Bacteremia Bacteremia Endocarditis HCV (hepatitis C virus) Pulmonary embolism Right heart failure Steatosis, liver Tricuspid valve stenosis Surgical History History of tricuspid valve replacement with bioprosthetic valve Social History Social History Household Members: None Household Members Other:: none. homeless Housing: Homeless Do you presently have visiting nurse or other home services: No Unable to assess alcohol history related to: Unknown Alcohol intake: unknown Patient Tobacco Use Status: Current everyday Tobacco user Tobacco use type: Cigarette Cigarette Packs Per Day: 1 Cigarettes Per Day: 20.0 Years Smoked: 10 Second Hand Smoke Exposure: No Substance Use Type: Heroin Advance Directives: Yes Advance Directives on File: Yes Advance Directives Date on File: 06/29/21 service: No Current occupational status: unemployed Physical Exam Vital Signs: Vital Signs: Last Vital Signs Pulse 95 03/02/23 23:32 Resp 19 03/02/23 23:32 BP 101/57 L 03/02/23 23:32 Pulse Ox 94 03/02/23 23:32 O2 Del Method Room Air 03/02/23 23:32 BMI result Body Mass Index 24.0 Vital signs stable slightly tachycardic likely secondary to agitation Appearance: Alert.? Awake, erratic behavior.? No acute distress.? Head: Normocephalic, atraumatic, no step-offs or deformities Eyes: Pupils equal, round and reactive to light.? ENT: Pharynx normal.? Neck: Normal inspection.? Neck supple.? CVS: Normal heart rate and rhythm.? Pulses normal.? Respiratory: No respiratory distress.? Breath sounds normal.? Abdomen: Soft and nontender.? Skin: Skin warm and dry.? Normal skin color.? Normal skin turgor.? Extremities: No lower extremity edema.? No calf ttp. 5/5 strength to bilateral upper and lower extremities Neuro: Alert.? Awake, erratic behavior.? No acute distress.? No motor deficit.? No sensory deficit. CN 2-12 intact Course Reevaluation(s) Reevaluation #1: Patient became combative toward staff members, jumping out of bed, harm to self and others, medical restraints ordered Time: 20:00 Reevaluation #2: CBC with slight leukocytosis at appears to be around patient's baseline, patient does have a microcytic anemia which appears to be around his baseline. Patient within LUCERO tollerating po but will give IVF. Total bilirubin 4.6, and elevated transaminases, when comparing patient's bilirubin to previous patient has had high bilirubin is a in the past his bilirubin was 4.0 on 07/21/2022 and 3.1 on 07/23/2022. Patient's alk-phos also elevated however appears to be around his baseline. Patient's salicylates, acetaminophen and ethanol negative. Urine toxicology and UA pending. CT of head unremarkable. CT of cervical spine with no acute findings. CT of the abdomen without any acute fracture definitive solid organ injury. Small amount of nonspecific fluid seen in the periportal and. Caval region etiology of this is uncertain. Low suspicion for vascular injury. CT of the chest with focal airspace disease in the anterior aspect of left upper lobe or likely represents an area of contusion in the setting of trauma, unclear if patient had trauma. I did discuss bilirubin and CT scans with my attending Dr. Mcgovern who does not feel as though this is acute and nothing needs to be done about as patient does not have abdominal tenderness on palpation. This also appears to be around patient's baseline. Will have him follow up with PCP to follow bilirubin Time: 22:58 Reevaluation #3: Patient continues to sleep. Repeat chemistry ordered, to check lucero, sign out to overnight provider Dr. Tomlinson who is aware. At this time patient will be placed in observation to allow more time to be evaluated by the behavioral health team observation was started patient common cooperative no acute distress will continue to monitor Time: 01:11 Medications Administered Discontinued Medications Generic Name Dose Route Start Last Admin Trade Name Freq PRN Reason Stop Dose Admin Diphenhydramine HCl 50 mg 03/02/23 19:57 03/02/23 20:01 Diphenhydramine Hcl 50 Mg/Ml Vial IVPUSH 03/02/23 19:58 50 mg ONCE ONE Administration Iohexol 100 ml 03/02/23 20:47 03/02/23 20:47 Iohexol 350 Mg/Ml 100 Ml Infus..Btl IV 03/02/23 20:48 85 ml ONCE ONE Administration Lorazepam 1 mg 03/02/23 19:55 03/02/23 20:02 Lorazepam 2 Mg/Ml Vial IVPUSH 03/02/23 19:56 1 mg STAT STA Administration Medical Decision Making Medical Decision Making [facility] Narrative: 32-year-old male presents with altered mentation, suspected drug use, uncooperative Physical exam alert, awake, moving all extremities, erratic behavior Concerns for polysubstance abuse. Will rule out traumatic injury to head, cervical spine and chest. Plan labs, imaging, x-ray, drug screen Differential Diagnosis Differential Diagnoses: The differential diagnosis associated with the presentation includes Concerns for polysubstance abuse. Will rule out traumatic injury to head, cervical spine and chest. Admission/Observation Consideration of admission/observation: Escalation of care including admission/observation considered Lab Data [facility] Lab Attestation statement: I reviewed the patient's lab results. 03/02/23 19:31 03/02/23 19:31 Labs: Lab Results 03/02/23 03/02/23 03/02/23 Range/Units 19:31 19:31 19:31 WBC 11.6 H (4.8-10.8) X10*3/uL RBC 4.99 D (4.60-5.80) X10*6/uL Hgb 11.0 L D (14.0-18.0) g/dl Hct 34.3 L D (42.0-52.0) % MCV 68.7 L (80.0-98.0) fL MCH 22.0 L (27.0-33.0) pg MCHC 32.1 (31.0-36.0) g/dl RDW 23.8 H (11.0-16.0) % Plt Count 196 (160-400) X10*3/uL MPV TNP Immature Gran % (Auto) 0.7 H (0.0-0.4) % Neut % (Auto) 68.8 (45-73) % Lymph % (Auto) 16.8 L (20-40) % [place] % (Auto) 13.1 H (2-11) % Eos % (Auto) 0.2 (0-4) % Baso % (Auto) 0.4 (0-2) % Lymph # (Auto) 2.0 (1.2-4.9) X10*3/uL [place] # (Auto) 1.5 H (0.1-1.2) X10*3/uL Eos # (Auto) 0.0 (0.0-0.4) X10*3/uL Baso # (Auto) 0.1 (0.0-0.2) X10*3/uL Abs Immat Gran (auto) 0.08 H (0.00-0.03) X10*3/uL Absolute Neuts (auto) 8.0 (2.0-8.3) x10*3/uL Absolute Nucleated RBC 0.020 H (0.0-0.012) X10*3/uL Nucleated RBC % (auto) 0.2 (0.0-0.2) /100WBC Sodium 138 (135-145) mmol/L Potassium 4.2 (3.3-5.1) mmol/L Chloride 104 (96-108) mmol/L Carbon Dioxide 17 L (22-29) mmol/L Anion Gap 19 (12-20) BUN 25 H (9-16) mg/dL Creatinine 1.68 H (0.5-1.4) mg/dL Estim Creat Clear Calc 59.9 Estimated GFR 47 Random Glucose 76 (60-115) mg/dL Calcium 9.0 (8.4-10.2) mg/dL Magnesium 1.8 (1.6-2.6) mg/dL Total Bilirubin 4.6 H (0.0-1.0) mg/dL AST 82 H (5-37) U/L ALT 61 H (0-40) U/L Alkaline Phosphatase 206 H (39-117) U/L Troponin I High Sens (<3.5-35.0) ng/L Total Protein 7.2 (6.5-8.0) g/dL Albumin 4.0 (3.5-5.0) g/dL Salicylates < 5.0 L (15-30) mg/dL Acetaminophen < 17 (<30) mcg/mL Ethyl Alcohol mg/dL COVID-19 ([facility]) Negative (Negative) COVID-19 Clin Com See Note 03/02/23 03/02/23 Range/Units 19:31 19:31 WBC (4.8-10.8) X10*3/uL RBC (4.60-5.80) X10*6/uL Hgb (14.0-18.0) g/dl Hct (42.0-52.0) % MCV (80.0-98.0) fL MCH (27.0-33.0) pg MCHC (31.0-36.0) g/dl RDW (11.0-16.0) % Plt Count (160-400) X10*3/uL MPV Immature Gran % (Auto) (0.0-0.4) % Neut % (Auto) (45-73) % Lymph % (Auto) (20-40) % [place] % (Auto) (2-11) % Eos % (Auto) (0-4) % Baso % (Auto) (0-2) % Lymph # (Auto) (1.2-4.9) X10*3/uL [place] # (Auto) (0.1-1.2) X10*3/uL Eos # (Auto) (0.0-0.4) X10*3/uL Baso # (Auto) (0.0-0.2) X10*3/uL Abs Immat Gran (auto) (0.00-0.03) X10*3/uL Absolute Neuts (auto) (2.0-8.3) x10*3/uL Absolute Nucleated RBC (0.0-0.012) X10*3/uL Nucleated RBC % (auto) (0.0-0.2) /100WBC Sodium (135-145) mmol/L Potassium (3.3-5.1) mmol/L Chloride (96-108) mmol/L Carbon Dioxide (22-29) mmol/L Anion Gap (12-20) BUN (9-16) mg/dL Creatinine (0.5-1.4) mg/dL Estim Creat Clear Calc Estimated GFR Random Glucose (60-115) mg/dL Calcium (8.4-10.2) mg/dL Magnesium (1.6-2.6) mg/dL Total Bilirubin (0.0-1.0) mg/dL AST (5-37) U/L ALT (0-40) U/L Alkaline Phosphatase (39-117) U/L Troponin I High Sens 23.4 (<3.5-35.0) ng/L Total Protein (6.5-8.0) g/dL Albumin (3.5-5.0) g/dL Salicylates (15-30) mg/dL Acetaminophen (<30) mcg/mL Ethyl Alcohol < 10 mg/dL COVID-19 ([facility]) (Negative) COVID-19 Clin Com Independent Interpretation I performed an independent interpretation of an: EKG (Ventricular rate of 109, [place] normal, QRS normal, QT/QTC prolonged.) and CT Scan Radiology Impression Discussion of test interpretation with radiology: I have reviewed the radiologist's reading. Core Measures AMI core measures followed: Yes Measure exclusions: not indicated Critical Care Time Critical Care Time Critical Care Time: No Discharge Plan Discharge Clinical Impression: Substance abuse, Hyperbilirubinemia, LUCERO (acute kidney injury) Prescriptions: No Action Xarelto 20 mg Tablet 20 mg PO DAILY Qty: 30 0RF Rx Instructions: must administer with evening meal amoxicillin-pot clavulanate 875-125 mg tablet 1 tab PO Q12H Qty: 28 0RF
[2023-03-02 20:13] LABS: Alanine Aminotransferase 61 U/L (0-40); Alkaline Phosphatase 206 U/L (39-117); Aspartate Amino Transferase 82 U/L (5-37); Bilirubin Total 4.6 mg/dL (0.0-1.0); Blood Urea Nitrogen 25 mg/dL (9-16); Carbon Dioxide 17 mmol/L (22-29); Chloride 104 mmol/L (96-108); Creatinine Clr Calc Pharmacy 59.9; Estimated Glomerular Filt Rate 47; Glucose Random 76 mg/dL (60-115); Magnesium 1.8 mg/dL (1.6-2.6); Potassium 4.2 mmol/L (3.3-5.1); Salicylate < 5.0 mg/dL (15-30); Sodium 138 mmol/L (135-145); Total Protein 7.2 g/dL (6.5-8.0)
[2023-03-02 20:27] LABS: Acetaminophen LAB < 17 mcg/mL (<30); Anion Gap 19 (12-20)
[2023-03-02] MEDS: iohexoL 350 MG/ML 100 ML INFUS..BTL IV (20:47)
--- NOTE | 2023-03-02 21:07 | MHC.RECOVSUP ---
? Reason for consult: Recovery Support o Current location:ED22 o ?Identified substance use concern: DOMINIK? - Overdose - Support ? Additional information:?sustainability coach was unable to connect with patient at this time.
[2023-03-03] VITALS (58 sets, daily range): BP systolic 69–144; BP diastolic 32–73; PULSE 85–126; RESP 16–28; TEMP 35–40.7; O2SAT 90–100
--- NOTE | 2023-03-03 00:04 | PC.NURSE ---
pt sleeping at this time, will continue to monitor.
[2023-03-03] MEDS: 0.9 % Sodium Chloride 1,000 ML 999 ML IV ×2 (01:46→01:47)
--- NOTE | 2023-03-03 02:19 | MHC.EDTECH ---
this pct just assumed care of patient ,patient was assisted to electronic data interchange specialist into hospital attire ,security was called to lock up patient belongings in decon ,vitals sign was taken ,rectal temp was done and patient has a fever of 103.5 ,provider and ying cherry was made aware ,this pct is unable to collect urine sample as patient is incontinent of urine ,care given ,patient is very combative ,ying cherry is aware .
[2023-03-03] MEDS: LORazepam 2 MG/ML VIAL 1 MG IVPUSH (02:36)
--- NOTE | 2023-03-03 02:44 | PM.IMHP ---
History of Present Illness Date of Service: 03/03/23 Chief Complaint: overdose 32-year-old male with past medical history of MSSA bacteremia PE on Xarelto, history of endocarditis, tricuspid valve replacement, polysubstance abuse, hepatitis-C who presented to the hospital initially with altered mental status and suspected drug use. Patient was found outside by a bystander lying on the ground surrounded with drugs and a bottle of Xarelto. history is obtained from ED note given patient's altered mentation, I am unable to get much history from the patient. It appears that while in the ED patient was found to have a fever of 103.9, his other labs are also significant for tachycardia tachypnea, stable blood pressure Labs show WBC count of 11.6, hemoglobin of 11, medic of 34.3, creatinine of 1.68 from a baseline of 1.1, normal lactic acid, imaging including head CT, chest CT, abdomen pelvic CT, show no acute fracture or definite solid organ injury, small amount of nonspecific fluid seen in the periportal and pericaval region, has CT negative, cervical spine CT negative patient was placed on a cooling blanket, given suppository Tylenol 1 will be admitted for further management Review of Systems Review of Systems: Yes Unobtainable due to mental condition and Unobtainable due to mental status [facility] Medical History Anasarca Bacteremia Bacteremia Endocarditis HCV (hepatitis C virus) Pulmonary embolism Right heart failure Steatosis, liver Tricuspid valve stenosis Surgical History History of tricuspid valve replacement with bioprosthetic valve Social History Household Members: Unknown / Unable to assess Household Members Other:: none. homeless Housing: Unknown / Unable to assess Do you presently have visiting nurse or other home services: No Unable to assess alcohol history related to: Unknown Alcohol intake: unknown Patient Tobacco Use Status: Tobacco use Unknown Tobacco use type: Cigarette Cigarette Packs Per Day: 1 Cigarettes Per Day: 20.0 Years Smoked: 10 Second Hand Smoke Exposure: No Use of substances other than those prescribed or required for medical reasons: Unknown Substance Use Type: Heroin Last Used Substance: Unknown Currently Displaying Signs/Symptoms of Drug Intoxication Withdrawal: Yes Advance Directives: Yes Advance Directives on File: Yes Advance Directives Date on File: 04/16/21 Nutrition Risks: No Nutritional Risk service: No Current occupational status: unemployed Meds Allergies Allergy/AdvReac Type Severity Reaction Status Date / Time No Known Allergies Allergy Verified 03/02/23 18:45 [No Known Allergies*] Active Medications: Current Medications Ceftriaxone Sodium 1 gm/ (Sodium Chloride) 50 mls @ 100 mls/hr IV ONCE ONE Stop: 03/03/23 02:50 Vancomycin HCl 1,000 mg/Vancomycin HCl 750 mg/ Sodium Chloride 535 mls @ 267.5 mls/hr IV ONCE ONE Stop: 03/03/23 04:29 Sodium Chloride (Ns) 2,500 mls @ 833.3333 mls/hr IV .Q3H STA Stop: 03/03/23 05:35 Pharmacy Consult (Consult Rx Vancomycin Dosing) 1 each MISCELLANE DAILY PRN PRN Reason: Consult order Physical Exam Vital Signs and Narrative: Vital Signs: Last Vital Signs Temp 103.9 F H 03/03/23 02:37 Pulse 95 03/02/23 23:32 Resp 19 03/02/23 23:32 BP 101/57 L 03/02/23 23:32 Pulse Ox 94 03/02/23 23:32 O2 Del Method Room Air 03/02/23 23:32 BMI result Body Mass Index 24.0 Const: Other: patient is somnolent, arousable to sternal rub, not responding to any of my questions General: no acute distress Eyes: General: appearance normal, both eyes and all related structures Resp: Effort & Inspection: normal respiratory effort Cardio: Rate: regular rate Rhythm: regular rhythm GI: Palpation (GI): Soft to palpation Auscultation: normal bowel sounds Skin: General skin exam: no rashes or lesions noted Extrem: General: Yes normal to inspection and Yes no pedal edema Results Labs 03/02/23 19:31 03/02/23 19:31 Labs: Laboratory Results - last 24 hr 03/02/23 03/02/23 03/02/23 19:31 19:31 19:31 MCV 68.7 L MCH 22.0 L MCHC 32.1 RDW 23.8 H Plt Count 196 MPV TNP Immature Gran % (Auto) 0.7 H Neut % (Auto) 68.8 Lymph % (Auto) 16.8 L Long % (Auto) 13.1 H Eos % (Auto) 0.2 Baso % (Auto) 0.4 Lymph # (Auto) 2.0 Long # (Auto) 1.5 H Eos # (Auto) 0.0 Baso # (Auto) 0.1 Abs Immat Gran (auto) 0.08 H Absolute Neuts (auto) 8.0 Absolute Nucleated RBC 0.020 H Nucleated RBC % (auto) 0.2 Anion Gap 19 Estim Creat Clear Calc 59.9 Estimated GFR 47 Random Glucose 76 Calcium 9.0 Magnesium 1.8 Total Bilirubin 4.6 H AST 82 H ALT 61 H Alkaline Phosphatase 206 H Troponin I High Sens Total Protein 7.2 Albumin 4.0 Salicylates < 5.0 L Acetaminophen < 17 Ethyl Alcohol COVID-19 ([facility]) Negative COVID-19 Clin Com See Note 03/02/23 03/02/23 19:31 19:31 MCV MCH MCHC RDW Plt Count MPV Immature Gran % (Auto) Neut % (Auto) Lymph % (Auto) Long % (Auto) Eos % (Auto) Baso % (Auto) Lymph # (Auto) Long # (Auto) Eos # (Auto) Baso # (Auto) Abs Immat Gran (auto) Absolute Neuts (auto) Absolute Nucleated RBC Nucleated RBC % (auto) Anion Gap Estim Creat Clear Calc Estimated GFR Random Glucose Calcium Magnesium Total Bilirubin AST ALT Alkaline Phosphatase Troponin I High Sens 23.4 Total Protein Albumin Salicylates Acetaminophen Ethyl Alcohol < 10 COVID-19 ([facility]) COVID-19 Clin Com Imaging Radiologist's Impressions: Impressions Chest X-Ray 03/02/23 20:15 IMPRESSION: Unremarkable chest examination. Abdomen/Pelvis CT 03/02/23 20:45 IMPRESSION: I do not appreciate any acute fracture or definitive solid organ injury. There is a small amount of nonspecific fluid seen in the periportal and pericaval region. Etiology of this is uncertain. Correlation with amylase and lipase levels would be recommended. I do not appreciate any contrast extravasation. Vascular injury would be considered much less likely in this location. If there is persistent clinical concern, follow-up abdominal imaging can be obtained to assure stability of this subtle finding over time Cervical Spine CT 03/02/23 20:45 IMPRESSION: Unremarkable examination. Chest CT 03/02/23 20:45 IMPRESSION: I do not appreciate any acute fracture or definitive solid organ injury. There is a small amount of nonspecific fluid seen in the periportal and pericaval region. Etiology of this is uncertain. Correlation with amylase and lipase levels would be recommended. I do not appreciate any contrast extravasation. Vascular injury would be considered much less likely in this location. If there is persistent clinical concern, follow-up abdominal imaging can be obtained to assure stability of this subtle finding over time Head CT 03/02/23 20:45 IMPRESSION: Unremarkable examination. Assessment and Plan (1) Sepsis: Status: Acute (2) Substance abuse: Status: Acute (3) LUCERO (acute kidney injury): Status: Acute (4) History of endocarditis: Status: Acute Plan 32-year-old male with past medical history of polysubstance abuse, history of endocarditis presents to the hospital after being found altered # sepsis - likely secondary to endocarditis versus other etiology less likely given his history of polysubstance abuse including IV drug injection - WIll treat with IV antibiotics - echocardiogram - continue cooling protocol - follow cultures - infectious Disease consulted # febrile - likely secondary to endocarditis - abdomen pelvic CT showing no other etiology - given Tylenol, will continue suppository Tylenol q.6 hours p.r.n. - continue IV antibiotics - vitals Q4h # LUCERO - prerenal - will start with IV fluids - follow BMP # history of endocarditis - his presentation is concerning for acute endocarditis - he has history of tricuspid valve replacement - will obtain echocardiogram - continue IV antibiotics - follow cultures # history of PE - on Xarelto - unable to take p.o. - was switched to Lovenox in the meanwhile given patient's need for IV antibiotics he will require minimum 2 nights inpatient hospital stay for further management and monitoring Time Spent With Patient Time: Total time managing care of this patient today ____ minutes. Quality Stroke Does the patient have a stroke diagnosis?: No VTE Prior VTE?: No VTE Risk Level:: Medical - moderate - high VTE Device Contraindication: Treatment Not Indicated VTE Drug Contraindication: N/A - Med Ordered
[2023-03-03] MEDS: 0.9 % Sodium Chloride 2,500 ML 833.33 ML IV (02:45)
--- NOTE | 2023-03-03 02:50 | PC.NURSE ---
blood work obtained, fluid running and first IV Abx running. Pt given IV ativan to assist with withdrawal symptoms. Pt is currently laying on stretcher, respirations equal and mildly labored at 22-26 respirations per minute. Pt occasionally yells out and fidgets and then falls back asleep. Awaiting bed assignment at this time
--- NOTE | 2023-03-03 02:51 | MHC.EDTECH ---
PATIENT CMP ,LACTIC ACID AND BOTH SETS OF BLOOD CULTURE DRAWN AND SENT TO LAB .
[2023-03-03] MEDS: cefTRIAXone sodium 1 GM in 0.9 % Sodium Chloride 50 ML IV (02:53)
[2023-03-03 03:04] LABS: Lactic Acid 1.5 mmol/L (0.5-2.0)
[2023-03-03] MEDS: Acetaminophen Supp 650 MG SUPP.RECT PR ×2 (03:38→07:12)
[2023-03-03] MEDS: vancomycin HCL 1,000 MG, vancomycin HCL 750 MG in 0.9 % Sodium Chloride 500 ML 267.5 MG IV (03:40)
--- NOTE | 2023-03-03 03:45 | MHC.EDTECH ---
PER RN REQUEST ICE PACKS PLACED ON PATIENT BODY TO DECREASE FEVER .
[2023-03-03 04:23] LABS: Alanine Aminotransferase 60 U/L (0-40); Albumin Level 3.8 g/dL (3.5-5.0); Alkaline Phosphatase 195 U/L (39-117); Anion Gap 20 (12-20); Aspartate Amino Transferase 73 U/L (5-37); Bilirubin Total 4.5 mg/dL (0.0-1.0); Blood Urea Nitrogen 27 mg/dL (9-16); Calcium 8.5 mg/dL (8.4-10.2); Carbon Dioxide 15 mmol/L (22-29); Chloride 107 mmol/L (96-108); Creatinine Clr Calc Pharmacy 66.2; Estimated Glomerular Filt Rate 53; Glucose Random 65 mg/dL (60-115); Potassium 3.5 mmol/L (3.3-5.1); Sodium 138 mmol/L (135-145); Total Protein 6.9 g/dL (6.5-8.0)
[2023-03-03] MEDS: Ketorolac Tromethamine 15 MG/ML VIAL IVPUSH (04:28)
--- NOTE | 2023-03-03 04:32 | MHC.EDTECH ---
PATIENT WAS INCONTINENT OF URINE ,CARE GIVEN ,BEDDING CHANGE .
--- NOTE | 2023-03-03 04:34 | PC.NURSE ---
Cooling blanket and ice packs placed on pt at this time
--- NOTE | 2023-03-03 04:41 | MHC.EDTECH ---
COOLING BLANKET WAS PLACE ON PATIENT PER PROVIDER ORDER .
[2023-03-03] MEDS: cefEPime HCl 2 GM in 0.9 % Sodium Chloride 50 ML IV ×3 (06:21→20:11)
--- NOTE | 2023-03-03 06:45 | PHA.PROG ---
Admission Date/Time: March 03, 2023 02:43 Indication: OTHER/SEPSIS/IVDU Weight in k.5 kg Adjusted body weight in Kg: [place] body weight in Kg: Obesity Dosing Indication % IBW: Serum Creatinine - Last 168 Hours 03/02/23 03/03/23 19:31 02:46 Creatinine 1.68 H 1.52 H Estimated CrCl and GFR - Last 168 Hours 03/02/23 03/03/23 19:31 02:46 Estim Creat Clear Calc 59.9 66.2 Estimated GFR 47 53 Vancomycin Loading Dose:1750 Current Vancomycin Dosing Regimen: 750 Q12H Vancomycin Monitoring using AUC goal of 400 - 600 range with trough as surrogate marker: AUC 507, TROUGH 16.9 Date and Time for next Vancomycin Level to be drawn: 03/04 @1400 Pharmacist Comments on Vancomycin Plan: Vancomycin dosing will take advantage of [employer] as a clinical decision support tool that uses Bayesian modeling to calculate individual patient's pharmacokinetic parameters and forecast the patient's drug concentration time course with the target goal AUC 24 range of 400 - 600 mg/L/hr.
--- NOTE | 2023-03-03 07:00 | CA_ITS ---
Transthoracic Echocardiogram Patient (Last, First, Middle): Norberto Marquez, Gender: Male Date of : 1990 Age: 32 Procedure Date: 03/03/2023 Procedure Type: Transthoracic Echocardiogram Location: ICU Height: 172.72 cm Weight: 71.22 kg BSA: 1.84 m2 Heart Rate: bpm BP: 88 / 52 mmHg Laborer Drying Department: Referring MD: Larry Mace MD Symptoms: Concern for endocarditis, IVDU, Septic Study Quality: Fair ECG Rhythm: Sinus Conclusions: - Normal left ventricular cavity size. There is normal left ventricular wall thickness. The left ventricular systolic function is mildly decreased. The visually estimated ejection fraction is between 40-45%. - Mildly increased right ventricular cavity size. There is moderately decreased right ventricular systolic function. - Mean gradient across prosthetic tricuspid valve 11 mm Hg. - The prostatic valve leaflets are not very well visualized but appeared mildly thickened in some views. No obvious vegetation noticed. Findings Left Ventricle Normal left ventricular cavity size. There is normal left ventricular wall thickness. The left ventricular systolic function is mildly decreased. The visually estimated ejection fraction is between 40-45%. There is no evidence of regional wall motion abnormalities. There is paradoxical septal motion consistent with post-operative status. Diastolic function is normal for age. Right Ventricle Mildly increased right ventricular cavity size. There is moderately decreased right ventricular systolic function. Atria The left atrium is normal in size. Aortic Valve Normal aortic valve structure and function. There is no aortic valve stenosis. There is no aortic valve regurgitation. Mitral Valve The mitral valve appears normal. There is trace mitral valve regurgitation. There is no mitral valve stenosis. Pulmonic Valve The pulmonic valve was not well visualized. Tricuspid Valve A bioprosthetic tricuspid valve is present. The prosthetic tricuspid valve appears to be functioning abnormally. Echo findings are consistent with stenosis of the tricuspid valve prosthesis. There is mild tricuspid valve regurgitation. Moderately elevated right atrial pressure. There is no evidence of pulmonary hypertension. Mean gradient across prosthetic tricuspid valve 11 mm Hg. The prostatic valve leaflets are not very well visualized but appeared mildly thickened in some views. No obvious vegetation noticed. Great Vessels All visible segments of the aorta are normal in size. Venous The inferior vena cava is normal in size and collapses less than 50% with inspiration. Pericardium/Pleural There is no evidence of pericardial effusion. Prior Study Comparison Changes noted compared to prior study dated: 11/20/2021. RV function is mildly worse. Gradient across the tricuspid valve but no obvious vegetation noted (previous echo showed vegetation on the prosthetic valve). Recommendations, Care & Conclusions Consider a ALDAIR if clinically appropriate. Measurements 2D Linear Measurements IVSd: 0.92 0.6-0.9/0.6-1.0 cm LVIDd: 4.93 3.9-5.3/4.2-5.9 cm LVIDd Index: 2.68 2.4-3.2/2.2-3.1 cm/m2 LVIDs: 4.10 2.0-3.6 cm LVPWd: 1.06 0.7-1.1 cm Ao Root: 3.80 2.1-3.5 cm LA Diam: 3.00 2.7-3.8/3.0-4.0 cm LAIDs Index: 1.63 1.5-2.3 cm/m2 LV Mass: 218.52 67-162/88-224 g LV Mass Index: 118.76 43-95/49-115 g/m2 LVOT Diam: 2.20 3.0+(-)1.3 cm 2D Systolic Function EF 4C: 36.80 >55% EF 2C: 37.30 >55% EF BiP: 37.90 >55% Mitral Valve MV Pk E: 0.53 MV PK A: 0.53 MV Decel Time: 152.00 E/A: 1.00 E'Lateral: 13.20 E'Medial: 3.37 E/E' Med: 15.60 E/E' Lat: 4.00 PHT: 45.00 MVA PHT: 4.89 Decel Solano: 3.46 Aortic Valve AoV Pk Dalton: 0.90 AoV Mn Dalton: 0.67 AoV VTI: 0.17 AoV Pk Grad: 3.00 Aov Mn Grad: 2.00 ISABELLA Cont.VTI: 2.86 LVOT LVOT Pk Dalton: 0.77 LVOT Mn Dalton: 0.50 LVOT VTI: 0.13 LVOT Pk Grad: 2.00 LVOT Mn Grad: 1.00 LVOT Diam: 2.20 LVOT Area: 3.80 Diastolic Function MV Pk E: 0.53 MV Pk A: 0.53 E/A: 1.00 E'Medial: 3.37 E/E' Med: 15.60 E' Laterial: 13.20 E/E' Lat: 4.00 Right Ventricle TAPSE (mm): 13.00 TVS' Dalton: 7.00 Tricuspid Valve TV Pk Dalton: 1.89 TV Mn Dalton: 1.47 TV Pk Grad: 14.00 TV Mn Grad: 10.00 TR Pk Dalton: 1.86 TR Pk Grad: 14.00 RA Press: 3.00 RVSP: 17.00 Great Vessels Aorta Ao Root-2D: 3.80 2.0-3.7 cm Ao Asc: 2.70 2.1-3.4 cm Pulmonary Valve PV Pk Dalton: 1.19 Peak PV Grad: 6.00 Updated in Other Vendor System with Status of Final Pedro Chang MD electronically signed on 03/03/2023 3:07:21 PM with status of Final
[2023-03-03] MEDS: Enoxaparin Sodium 80 MG/0.8 ML SYRINGE 70 MG SUBCUT (07:16)
[2023-03-03] MEDS: Lactated Ringers 1,000 ML 999 ML IV (07:18)
--- NOTE | 2023-03-03 07:27 | PM.EVENT ---
Event Note Date of Service: 03/03/23 Event Note: patient obtunded,. severely septic and hypotensive despite aggressive fluid ressucitation. d/w ICU will transfer to ICU, start peripheral pressors. Time Spent With Patient Time: Total time managing care of this patient today ____ minutes.
[2023-03-03] MEDS: Norepinephrine Bitartrate/D5W 8 MG/250 ML PLAST..BAG 4.02 MG IV (08:05)
[2023-03-03] MEDS: propofoL 200 MG/20 ML VIAL 150 MG IVPUSH (08:10)
[2023-03-03] MEDS: propofoL 1,000 MG/100 ML VIAL 21.45 MG IVCONT (08:15)
[2023-03-03] MEDS: Cisatracurium Besylate 20 MG/10 ML VIAL 10 MG IVPUSH (08:23)
[2023-03-03] MEDS: fentaNYL citrate/NS 1,000 MCG/100 ML PLAST..BAG 2.5 MCG IVCONT (08:31)
[2023-03-03 09:25] LABS: VBG Base Excess -10.6 mmol/L; VBG HCO3 16 mmol/L (22-26); VBG pCO2 37 mmHg; VBG pH 7.23 (7.32-7.43); VBG pO2 67 mmHg
[2023-03-03 09:26] LABS: Hematocrit 35.9 % (42.0-52.0); Hemoglobin 11.2 g/dl (14.0-18.0); Mean Corpuscular HGB Conc 31.2 g/dl (31.0-36.0); Mean Corpuscular Volume 70.4 fL (80.0-98.0); NRBC Pct Auto 0.2 /100WBC (0.0-0.2); Platelet Count 171 X10*3/uL (160-400); Red Cell Distribution Width 23.9 % (11.0-16.0); White Blood Count 18.6 X10*3/uL (4.8-10.8)
[2023-03-03 09:32] LABS: Partial Thromboplastin Time 55.2 SEC (26.0-36.4)
[2023-03-03 09:36] LABS: Prothrombin Time 83.9 SEC (10.0-13.1)
[2023-03-03 09:37] LABS: Alanine Aminotransferase 53 U/L (0-40); Albumin Level 3.2 g/dL (3.5-5.0); Alkaline Phosphatase 154 U/L (39-117); Anion Gap 16 (12-20); Aspartate Amino Transferase 71 U/L (5-37); Bilirubin Total 3.5 mg/dL (0.0-1.0); Blood Urea Nitrogen 29 mg/dL (9-16); Calcium 7.7 mg/dL (8.4-10.2); Carbon Dioxide 15 mmol/L (22-29); Chloride 113 mmol/L (96-108); Creatinine Clr Calc Pharmacy 66.6; Estimated Glomerular Filt Rate 53; Glucose Random 82 mg/dL (60-115); Potassium 3.2 mmol/L (3.3-5.1); Sodium 141 mmol/L (135-145)
[2023-03-03 09:49] LABS: INTERNATIONAL NORM RATIO 6.7 (0.9-1.1)
[2023-03-03] MEDS: Chlorhexidine Gluc Oral Rinse 15 ML MOUTHWASH BUCCAL ×3 (10:31→20:11)
[2023-03-03] MEDS: Famotidine/PF 20 MG/2 ML VIAL IVPUSH (10:31)
[2023-03-03 10:43] LABS: Venous Blood Gas Refer to POC result
[2023-03-03 11:27] LABS: Prothrombin Time 82.9 SEC (10.0-13.1)
[2023-03-03 11:27] LABS: Appearance Urine Clear; Color Urine Dark Yellow; Glucose Urine UA Negative (Negative); Leukocyte Esterase Urine Trace (Negative); Nitrite Urine Negative (Negative); Specific Gravity - Urine >= 1.030 (1.005-1.025); UMIC TRIGGER UACC YES; Urine Blood Moderate (2+) (Negative); Urine Ketones 15 mg/dL (Negative); Urine Protein 100 (2+) mg/dL (Neg-Trace)
[2023-03-03 11:35] LABS: Bacteria Urine None Seen (None Seen); Hyaline Casts Urine 0-2 /LPF (0-2); WBC Urine 0-5 /HPF (0-5)
[2023-03-03 11:45] LABS: Amphetamine Screen Urine Not Detected (Not Detect); Barbiturates, Urine Not Detected (Not Detect); Benzodiazepines Screen Urine Not Detected (Not Detect); Cannabinoid Screen Urine POSITIVE (Not Detect); Cocaine Screen Urine POSITIVE (Not Detect); Fentanyl, urine POSITIVE (Not Detect); Opiate Screen Urine POSITIVE (Not Detect); Phencyclidine Screen Urine Not Detected (Not Detect)
--- NOTE | 2023-03-03 12:33 | W.PM.CCHP ---
Procedures Date of Service Date of Service: 03/03/23 Intubation Intubation Comments: Patient emergently intubated for airway protection secondary to high sedation requirements and respiratory distress from metabolic acidosis with 7.5 cuffed ET tube under glide scope guidance with no immediate complications. ET tube position verified on chest x-ray.
--- NOTE | 2023-03-03 12:36 | W.PM.CCHP ---
Procedures Date of Service Date of Service: 03/03/23 Central Line Placement Right IJ: Central Line Comments: Right internal jugular triple-lumen central venous catheter emergently placed for vasopressor support under ultrasound guidance and usual sterile conditions with no immediate complications. Line position verified on chest x-ray.
[2023-03-03 12:53] LABS: INTERNATIONAL NORM RATIO 6.7 (0.9-1.1)
[2023-03-03] MEDS: Norepinephrine Bitartrate/D5W 8 MG/250 ML PLAST..BAG 68.37 MG IV (13:28)
[2023-03-03] MEDS: Potassium Chloride/H20 40 MEQ/100 ML PIGGYBACK 100 MEQ IV ×2 (13:38→15:46)
[2023-03-03] MEDS: Phytonadione (Vit K1) 10 MG in 0.9 % Sodium Chloride 50 ML 51 MG IV (13:38)
--- NOTE | 2023-03-03 14:12 | PC.NURSE ---
Shift eval - Received transfer from [facility] floor at approx 0745am - Patient agitated, no resp compromise, BP running low per RN report. Patient on cooling blanket for fever. Transferred down, unable to participate with tests / care - yelling out. Dr Ortiz concern about sepsis & need for testing - intubated patient at approx 0815 with a 7.5 ETT at 23cm with 150mg IVP prop & 10mg nimbex given post intubation in order for MD to insert central line. Patient started on Levo drip, Prop drip & fent drip. TLC inserted to right IJ. Patient tolerated procedure. 18f OG tube inserted without issue. Also, 16f burr inserted. CXR done to confirm placement - ok to use TLC per Dr Ortiz. Initially copious amt oral secretions, bloody in nature - but then cleared up to be clear. Scant amt clear in-line secretions. ECHO done. Restraints on for airway safety.
--- NOTE | 2023-03-03 14:16 | P.PNCC_ITS ---
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 Now blood cultures positive for Gram-positive cocci. Being covered with broad- spectrum antibiotics. Critical Care Time (minutes): 60
--- NOTE | 2023-03-03 15:20 | MHC.CM.PN ---
Pt now intubated in ICU w/severe sepsis r/t bacteremia. Known IVDU. Call placed to HCP, Brittany Dover - message states number no longer in service. No other contacts listed. ICU care team state pt has not had visitors or calls from family/friends: CM to continue to find next of kin/printed circuit boards contact printer.
[2023-03-03] MEDS: vancomycin HCL 750 MG in 0.9 % Sodium Chloride 250 ML 265 MG IV (15:24)
[2023-03-03] MEDS: 0.9 % Sodium Chloride Flush 3 ML SYRINGE IVFLUSH ×2 (15:25→23:39)
--- NOTE | 2023-03-03 15:25 | W.PM.IDCN ---
History of Present Illness Data of Consult Service Date: 03/03/23 Requesting physician: Chaka Ortiz Primary Care Provider: Unknown Physician HPI Reason for consult: septic shock He presents with altered mental status,found lethargic. He has prior TVR due to MSSA bacteremia in past. He is intubated with hypotension CXR pulmonary edema concerns. Blood shows gram positive cocci. He also has Hepatitis C positive Review of Systems Review of Systems: Yes unobtainable due to endotracheal tube PMFSH Past Medical History Medical History Anasarca Bacteremia Bacteremia Endocarditis HCV (hepatitis C virus) Pulmonary embolism Right heart failure Steatosis, liver Tricuspid valve stenosis Family History Family history: reviewed and not pertinent Surgical History Surgical History History of tricuspid valve replacement with bioprosthetic valve Social History Social History Household Members: Unknown / Unable to assess Household Members Other:: none. homeless Housing: Unknown / Unable to assess Do you presently have visiting nurse or other home services: No Unable to assess alcohol history related to: Unknown Alcohol intake: unknown Patient Tobacco Use Status: Tobacco use Unknown Tobacco use type: Cigarette Cigarette Packs Per Day: 1 Cigarettes Per Day: 20.0 Years Smoked: 10 Second Hand Smoke Exposure: No Use of substances other than those prescribed or required for medical reasons: Unknown Substance Use Type: Heroin Last Used Substance: Unknown Currently Displaying Signs/Symptoms of Drug Intoxication Withdrawal: Yes (agitated upon transfer) Advance Directives: Yes Advance Directives on File: Yes Advance Directives Date on File: 04/16/21 Nutrition Risks: No Nutritional Risk service: No Current occupational status: unemployed Meds Allergies Allergy/AdvReac Type Severity Reaction Status Date / Time No Known Allergies Allergy Verified 03/02/23 18:45 [No Known Allergies*] Active Medications: Current Medications Acetaminophen (Acetaminophen 325 Mg Tablet) 650 mg PO Q6H PRN PRN Reason: Pain, Mild (Pain Scale 1-3) Chlorhexidine Gluconate (Chlorhexidine Gluc Oral Rinse 15 Ml Mouthwash) 15 ml BUCCAL TID CRISTINA Last Admin: 03/03/23 13:39 Dose: 15 ml Famotidine (Famotidine/Pf 20 Mg/2 Ml Vial) 20 mg IVPUSH DAILY [facility] Last Admin: 03/03/23 10:31 Dose: 20 mg Cefepime HCl 2 gm/ Sodium (Chloride) 50 mls @ 100 mls/hr IV Q8H [facility] Last Infusion: 03/03/23 14:22 Dose: Infused Vancomycin HCl 750 mg/ Sodium (Chloride) 265 mls @ 265 mls/hr IV Q12H [facility] Last Admin: 03/03/23 15:24 Dose: 265 mls/hr Norepinephrine Bitartrate (Levophed) 8 mg in 250 mls @ 0 mls/hr IV .Q0M [facility]; Protocol Last Titration: 03/03/23 14:22 Dose: 0.51 mcg/kg/min, 68.37 mls/hr Propofol (Diprivan) 1,000 mg in 100 mls @ 0 mls/hr IVCONT .Q0M [facility]; Protocol Last Titration: 03/03/23 15:02 Dose: Infused Fentanyl (Sublimaze/Ns) 1,000 mcg in 100 mls @ 0 mls/hr IVCONT .Q0M [facility]; Protocol Last Admin: 03/03/23 08:31 Dose: 25 mcg/hr, 2.5 mls/hr Naloxone HCl (Naloxone Hcl 0.4 Mg/Ml Vial) 0.2 mg IVPUSH Q2M PRN PRN Reason: Excessive sedation or RR < 8 Ondansetron HCl (Ondansetron Hcl 4 Mg/2 Ml Vial) 4 mg IVPUSH Q8H PRN PRN Reason: Nausea and Vomiting Pharmacy Consult (Consult Rx Vancomycin Dosing) 1 each MISCELLANE DAILY PRN PRN Reason: Consult order Sodium Chloride (0.9 % Sodium Chloride Flush 3 Ml Syringe) 3 ml IVFLUSH QSHIFT [facility] Last Admin: 03/03/23 15:25 Dose: 3 ml Physical Exam Vital Signs: Vital Signs: Last Vital Signs Temp 98.1 F 03/03/23 15:00 Pulse 89 03/03/23 15:00 Resp 20 03/03/23 15:00 BP 94/59 L 03/03/23 15:00 Pulse Ox 99 03/03/23 15:00 O2 Del Method Mechanical Ventil ation 03/03/23 15:00 FiO2 50 03/03/23 15:00 BMI result Body Mass Index 24.0 Const: Other: vented HEENT: Head: Yes normal to inspection Face and sinus: Yes normal facial exam Mouth: Normal oral and palatal mucosa present Teeth and gingiva: dentition normal Eyes: General: appearance normal, both eyes and all related structures Pupils: Equal, round and reactive pupils present Resp: Effort & Inspection: normal respiratory effort Cardio: Other: 3/6 PAULO Rate: regular rate Rhythm: regular rhythm GI: Palpation (GI): Soft to palpation and nontender : General: Yes no CVA tenderness Back/Spine/Pelvis: Back: no CVA tenderness Skin: General skin exam: no rashes or lesions noted Neuro: General: moves all extremities Cranial nerves: Yes Equal, round and reactive pupils present Extrem: General: Yes normal to inspection Psych: Appearance: grossly normal Results Labs 03/03/23 09:16 03/03/23 09:16 Labs: Short CBC 03/02/23 03/03/23 Range/Units 19:31 09:16 WBC 11.6 H 18.6 H (4.8-10.8) X10*3/uL Hgb 11.0 L D 11.2 L (14.0-18.0) g/dl Hct 34.3 L D 35.9 L (42.0-52.0) % Plt Count 196 171 (160-400) X10*3/uL BMP 03/02/23 03/03/23 03/03/23 19:31 02:46 09:16 Sodium 138 138 141 Potassium 4.2 3.5 3.2 L Chloride 104 107 113 H Carbon Dioxide 17 L 15 L 15 L BUN 25 H 27 H 29 H Creatinine 1.68 H 1.52 H 1.51 H Calcium 9.0 8.5 7.7 L D Liver Function 03/02/23 03/03/23 03/03/23 Range/Units 19:31 02:46 09:16 Total Bilirubin 4.6 H 4.5 H 3.5 H (0.0-1.0) mg/dL AST 82 H 73 H 71 H (5-37) U/L ALT 61 H 60 H 53 H (0-40) U/L Alkaline Phosphatase 206 H 195 H 154 H (39-117) U/L Albumin 4.0 3.8 3.2 L (3.5-5.0) g/dL Urine 03/03/23 Range/Units 10:54 Urine Color Dark Yellow Urine Appearance Clear Urine pH 6.0 (5.0-9.0) Ur Specific [place] >= 1.030 H (1.005-1.025) Urine Protein 100 (2+) H (Neg-Trace) mg/dL Urine Glucose (UA) Negative (Negative) mg/dL Microbiology Microbiology Results: Microbiology 03/03/23 02:47 Blood - Venous Blood Culture - Preliminary Prelim: GPC Gram Stain only 03/03/23 02:46 Blood - Venous Blood Culture - Preliminary Prelim: GPC Gram Stain only Assessment and Plan (1) Sepsis: Status: Acute Likely this is due to recurrent endocarditis. Patient is IVDU. He is at risk for recurrence. (2) History of endocarditis: Status: Acute Plan Continue Vancomycin. Change Cefepime to Kefzol Check echo and interface with Cardiology and Cardiac Surgery Prognosis guarded with repeat infection after valve replacement. Time Spent With Patient Time: Total time managing care of this patient today ____ minutes.
[2023-03-03] MEDS: propofoL 1,000 MG/100 ML VIAL 15.02 MG IVCONT (16:16)
[2023-03-03] MEDS: Norepinephrine Bitartrate/D5W 8 MG/250 ML PLAST..BAG 73.73 MG IV ×2 (16:38→19:39)
[2023-03-03] MEDS: propofoL 1,000 MG/100 ML VIAL 12.87 MG IVCONT (20:33)
[2023-03-03] MEDS: Norepinephrine Bitartrate/D5W 8 MG/250 ML PLAST..BAG 84.46 MG IV (22:30)
[2023-03-04] VITALS (44 sets, daily range): BP systolic 95–137; BP diastolic 48–91; PULSE 98–115; RESP 15–32; TEMP 34.8–38.8; O2SAT 93–99; BMI 24.0
--- NOTE | 2023-03-04 | ECG_ITS ---
Test Reason : RYTHME CHANGE Blood Pressure : / mmHG Vent. Rate : 111 BPM Atrial Rate : 000 BPM P-R Int : 000 ms QRS Dur : 084 ms QT Int : 366 ms P-R-T Axes : 000 076 034 degrees QTc Int : 497 ms Accelerated Junctional rhythm with retrograde conduction Nonspecific T wave abnormality Abnormal ECG No previous ECGs available Referred By: Derrick Ye Electronically Signed By:Pedro Chang
[2023-03-04] MEDS: Acetaminophen 325 MG TABLET 650 MG PO (00:44)
[2023-03-04] MEDS: Norepinephrine Bitartrate/D5W 8 MG/250 ML PLAST..BAG 87.14 MG IV ×4 (01:00→08:56)
[2023-03-04] MEDS: propofoL 1,000 MG/100 ML VIAL 12.87 MG IVCONT ×3 (01:41→13:47)
[2023-03-04] MEDS: vancomycin HCL 750 MG in 0.9 % Sodium Chloride 250 ML 265 MG IV (03:40)
[2023-03-04 04:59] LABS: VBG HCO3 18 mmol/L (22-26); VBG pCO2 36 mmHg; VBG pO2 47 mmHg
[2023-03-04] MEDS: cefEPime HCl 2 GM in 0.9 % Sodium Chloride 50 ML IV ×3 (04:59→20:45)
[2023-03-04 05:32] LABS: Basophils Absolute Auto 0.1 X10*3/uL (0.0-0.2); Basophils Percent Auto 0.3 % (0-2); Hematocrit 39.6 % (42.0-52.0); Hemoglobin 12.3 g/dl (14.0-18.0); Imm Gran Abs Auto 0.43 X10*3/uL (0.00-0.03); Imm Gran Pct Auto 1.8 % (0.0-0.4); Lymphocytes Absolute Auto 1.2 X10*3/uL (1.2-4.9); MANUAL DIFF FLAG SCAN; Mean Corpuscular HGB Conc 31.1 g/dl (31.0-36.0); Mean Corpuscular Hemoglobin 21.7 pg (27.0-33.0); Mean Corpuscular Volume 69.8 fL (80.0-98.0); Monocytes Absolute Auto 0.9 X10*3/uL (0.1-1.2); NRBC Pct Auto 0.1 /100WBC (0.0-0.2); Neutrophils Percent Auto 88.9 % (45-73); Platelet Count 147 X10*3/uL (160-400); Red Blood Count 5.67 X10*6/uL (4.60-5.80); Red Cell Distribution Width 25.2 % (11.0-16.0); SCAN SMEAR FLAG 1; White Blood Count 23.6 X10*3/uL (4.8-10.8)
[2023-03-04 05:33] LABS: INTERNATIONAL NORM RATIO 2.9 (0.9-1.1); Prothrombin Time 34.4 SEC (10.0-13.1)
[2023-03-04 05:44] LABS: Alanine Aminotransferase 55 U/L (0-40); Albumin Level 3.1 g/dL (3.5-5.0); Alkaline Phosphatase 149 U/L (39-117); Anion Gap 14 (12-20); Aspartate Amino Transferase 71 U/L (5-37); Bilirubin Total 3.3 mg/dL (0.0-1.0); Blood Urea Nitrogen 38 mg/dL (9-16); Calcium 7.3 mg/dL (8.4-10.2); Carbon Dioxide 17 mmol/L (22-29); Chloride 113 mmol/L (96-108); Creatinine Clr Calc Pharmacy 59.9; Estimated Glomerular Filt Rate 47; Glucose Random 111 mg/dL (60-115); Magnesium 1.9 mg/dL (1.6-2.6); Phosphorus 3.2 mg/dL (2.7-4.5); Potassium 4.2 mmol/L (3.3-5.1); Sodium 140 mmol/L (135-145); Total Protein 6.1 g/dL (6.5-8.0)
[2023-03-04 05:49] LABS: SLIDE REVIEW VERIFIED
[2023-03-04 07:08] LABS: Venous Blood Gas Refer to POC result
--- NOTE | 2023-03-04 07:08 | PC.NURSE ---
late entry patient sedate with fentynal and propofol synchronic on vent ac settings with +gag. Levo 0.55mcg map remains 65 and greater. HR 90's SR no ectopy noted. Vanco administered as ordered. core temp 97.9-98.1. Some sweating noted at patient brow. Stover output 50-100cc/hr. continue to monitor closely. Patient's mother, Brittany called for updates. Accurate # obtained to reach her. She stated her son was clean from drugs for about 4 months then fell off again . This RN encouraged her to visit and call in for updates when she can.
[2023-03-04] MEDS: Albumin Human 25 % 100 ML IV ×2 (07:38→08:56)
[2023-03-04] MEDS: Famotidine/PF 20 MG/2 ML VIAL IVPUSH (07:38)
[2023-03-04] MEDS: 0.9 % Sodium Chloride Flush 3 ML SYRINGE IVFLUSH ×2 (07:38→16:31)
[2023-03-04] MEDS: Chlorhexidine Gluc Oral Rinse 15 ML MOUTHWASH BUCCAL ×3 (07:38→20:45)
--- NOTE | 2023-03-04 09:52 | MHC.CLN ---
RE: CONSULT PT IS INTUBATED AND SEDATED IF TF NEEDED; RECOMMEND PROMOTE AT MAX GOAL RATE 60ML/HR WITH 120ML FWF Q 4 HRS TO PROVIDE 1440KCLAS (1780KCALS WITH SEDATION; 25KCALS/KG), 90G PROTEIN (1.25G/KG), 1928ML TOTAL WATER FROM FORMULA AND FLUSHES (27ML/KG) MONITOR TOLERANCE, RESIDUALS AND LYTES SEE ALSO FULL CLINICAL NUTRITION ASSESSMENT
--- NOTE | 2023-03-04 09:53 | MHC.CM.PN ---
Patient remains in ICU, CM will continue attempts in locating family contact.
--- NOTE | 2023-03-04 11:04 | PM.CCPN ---
Subjective Subjective Date of Service: 03/04/23 Interval History: 32-year-old gentleman with underlying history of substance abuse, endocarditis with tricuspid valve replaced by bioprosthesis, hepatitis-C, prior pulmonary embolism now on Xarelto admitted early on 03/03/2023 with alteration of mental status, initially treated for polysubstance abuse, further noted to be septic with hypotension refractory to initial IV fluid support requiring initiation of vasopressors, transferred to the intensive care unit and required central venous access placement and intubation with ventilatory support. Now blood cultures positive for Gram-positive cocci. Being covered with broad-spectrum antibiotics. 2D echocardiogram without evidence of valvular vegetation. No events overnight. Pressor requirements remain high. Critical Care Time (minutes): 45 Physical Exam Vital Signs: Vital Signs: Last Vital Signs Temp 99.0 F 03/04/23 10:00 Pulse 105 H 03/04/23 10:45 Resp 20 03/04/23 10:00 BP 130/90 H 03/04/23 10:45 Pulse Ox 97 03/04/23 10:00 O2 Del Method Mechanical Ventil ation 03/04/23 10:00 O2 Flow Rate 50 03/03/23 15:36 FiO2 50 03/04/23 10:00 BMI result Body Mass Index 24.0 Const: General: no acute distress and other ( Sedated on the vent) Eyes: Sclerae: sclerae normal EOM: EOMs intact bilaterally Neck: Neck: Yes no lymphadenopathy, Yes trachea midline and Yes supple Resp: Auscultation: clear to auscultation bilaterally Cardio: Rate: tachycardic Rhythm: regular rhythm Heart sounds: no gallops, no murmurs and no rubs GI: Palpation (GI): Soft to palpation and Other GI palpation findings present ( Nontender) Auscultation: normal bowel sounds Extrem: General: Yes no pedal edema, No clubbing and No cyanosis Objective Data Labs 03/04/23 04:50 03/04/23 04:50 Labs: Laboratory Results - last 24 hr 03/03/23 03/03/23 03/03/23 10:47 10:50 10:54 WBC RBC Hgb Hct MCV MCH MCHC RDW Plt Count MPV Immature Gran % (Auto) Neut % (Auto) Lymph % (Auto) [place] % (Auto) Eos % (Auto) Baso % (Auto) Lymph # (Auto) [place] # (Auto) Eos # (Auto) Baso # (Auto) Abs Immat Gran (auto) Absolute Neuts (auto) Absolute Nucleated RBC Nucleated RBC % (auto) Smear Tech's Comments PT 82.9 H INR 6.7 H* VBG pH VBG pCO2 VBG pO2 VBG HCO3 VBG O2 Saturation VBG Base Excess Sodium Potassium Chloride Carbon Dioxide Anion Gap BUN Creatinine Estim Creat Clear Calc Estimated GFR Random Glucose Calcium Phosphorus Magnesium Total Bilirubin AST ALT Alkaline Phosphatase Total Protein Albumin Urine Color Dark Yellow Urine Appearance Clear Urine pH 6.0 Ur Specific [place] >= 1.030 H Urine Protein 100 (2+) H Urine Glucose (UA) Negative Urine Ketones 15 Urine Blood Moderate (2+) H Urine Nitrite Negative Ur Leukocyte Esterase Trace H Urine RBC 11-20 H Urine WBC 0-5 Ur Squamous Epith Cells 3-5 Urine Bacteria None Seen Hyaline Casts 0-2 Urine Opiates Screen POSITIVE H Urine Fentanyl Screen POSITIVE H Ur Barbiturates Screen Not Detected Ur Phencyclidine Scrn Not Detected Ur Amphetamines Screen Not Detected U Benzodiazepines Scrn Not Detected Urine Cocaine Screen POSITIVE H U Marijuana (THC) Screen POSITIVE H 03/04/23 03/04/23 03/04/23 04:50 04:50 04:50 WBC 23.6 H RBC 5.67 Hgb 12.3 L Hct 39.6 L MCV 69.8 L MCH 21.7 L MCHC 31.1 RDW 25.2 H Plt Count 147 L MPV Not Reportable Immature Gran % (Auto) 1.8 H Neut % (Auto) 88.9 H Lymph % (Auto) 5.0 L [place] % (Auto) 4.0 Eos % (Auto) 0.0 Baso % (Auto) 0.3 Lymph # (Auto) 1.2 [place] # (Auto) 0.9 Eos # (Auto) 0.0 Baso # (Auto) 0.1 Abs Immat Gran (auto) 0.43 H Absolute Neuts (auto) 21.0 H Absolute Nucleated RBC 0.030 H Nucleated RBC % (auto) 0.1 Smear Tech's Comments VERIFIED PT 34.4 H INR 2.9 H D VBG pH VBG pCO2 VBG pO2 VBG HCO3 VBG O2 Saturation VBG Base Excess Sodium 140 Potassium 4.2 D Chloride 113 H Carbon Dioxide 17 L Anion Gap 14 BUN 38 H Creatinine 1.68 H Estim Creat Clear Calc 59.9 Estimated GFR 47 Random Glucose 111 Calcium 7.3 L Phosphorus 3.2 Magnesium 1.9 Total Bilirubin 3.3 H AST 71 H ALT 55 H Alkaline Phosphatase 149 H Total Protein 6.1 L Albumin 3.1 L Urine Color Urine Appearance Urine pH Ur Specific [place] Urine Protein Urine Glucose (UA) Urine Ketones Urine Blood Urine Nitrite Ur Leukocyte Esterase Urine RBC Urine WBC Ur Squamous Epith Cells Urine Bacteria Hyaline Casts Urine Opiates Screen Urine Fentanyl Screen Ur Barbiturates Screen Ur Phencyclidine Scrn Ur Amphetamines Screen U Benzodiazepines Scrn Urine Cocaine Screen U Marijuana (THC) Screen 03/04/23 04:51 WBC RBC Hgb Hct MCV MCH MCHC RDW Plt Count MPV Immature Gran % (Auto) Neut % (Auto) Lymph % (Auto) [place] % (Auto) Eos % (Auto) Baso % (Auto) Lymph # (Auto) [place] # (Auto) Eos # (Auto) Baso # (Auto) Abs Immat Gran (auto) Absolute Neuts (auto) Absolute Nucleated RBC Nucleated RBC % (auto) Smear Tech's Comments PT INR VBG pH 7.30 L VBG pCO2 36 VBG pO2 47 VBG HCO3 18 L VBG O2 Saturation 70.0 VBG Base Excess -7.0 Sodium Potassium Chloride Carbon Dioxide Anion Gap BUN Creatinine Estim Creat Clear Calc Estimated GFR Random Glucose Calcium Phosphorus Magnesium Total Bilirubin AST ALT Alkaline Phosphatase Total Protein Albumin Urine Color Urine Appearance Urine pH Ur Specific [place] Urine Protein Urine Glucose (UA) Urine Ketones Urine Blood Urine Nitrite Ur Leukocyte Esterase Urine RBC Urine WBC Ur Squamous Epith Cells Urine Bacteria Hyaline Casts Urine Opiates Screen Urine Fentanyl Screen Ur Barbiturates Screen Ur Phencyclidine Scrn Ur Amphetamines Screen U Benzodiazepines Scrn Urine Cocaine Screen U Marijuana (THC) Screen Microbiology Microbiology Results: Microbiology 03/03/23 02:47 Blood - Venous Blood Culture - Preliminary Prelim: GPC Gram Stain only 03/03/23 02:46 Blood - Venous Blood Culture - Preliminary Prelim: GPC Gram Stain only Progress Note: A&P Assessment and plan (1) LUCERO (acute kidney injury): Status: Acute (2) Substance abuse: Status: Acute (3) History of endocarditis: Status: Acute (4) Gram-positive bacteremia: Status: Acute (5) S/P tricuspid valve replacement: Status: Acute (6) Polysubstance abuse: Status: Acute (7) Acute respiratory failure: Status: Acute (8) HCV (hepatitis C virus): Status: Acute Plan Assessment: 32-year-old gentleman with Gram-positive bacteremia and polysubstance abuse now with septic shock and acute respiratory failure requiring ventilatory support. Plan: Neuro: No acute issues. Cardiac: Septic shock, continue to titrate of pressors as tolerated. Underlying history of bioprosthetic tricuspid valve replacement for endocarditis previously and right heart failure. Pulmonary: acute respiratory failure, continue to titrate of ventilatory support as tolerated. Renal: No acute issues. Endo: No acute issues. GI: No acute issues. ID: Gram-positive bacteremia on the background of polysubstance abuse. Blood cultures are pending. Infectious Disease service care appreciated. Continue broad-spectrum antibiotics until blood cultures are finalized. Heme/Onc: No acute issues. Psych: No acute issues. Miscellaneous: No acute issues. Prophylaxis: Heparin, famotidine Diet: nothing by mouth Critical care time spent: 45 minutes Quality Stroke Does the patient have a stroke diagnosis?: No VTE Prior VTE?: No VTE Risk Level:: Medical - moderate - high VTE Device Contraindication: Treatment Not Indicated VTE Drug Contraindication: N/A - Med Ordered
[2023-03-04] MEDS: Norepinephrine Bitartrate/D5W 8 MG/250 ML PLAST..BAG 76.42 MG IV (11:45)
[2023-03-04] MEDS: fentaNYL citrate/NS 1,000 MCG/100 ML PLAST..BAG 2.5 MCG IVCONT (11:47)
[2023-03-04 14:43] LABS: Vancomycin Trough 18.6 mcg/mL (10.0-20.0)
[2023-03-04] MEDS: Norepinephrine Bitartrate/D5W 8 MG/250 ML PLAST..BAG 68.37 MG IV (15:03)
[2023-03-04] MEDS: vancomycin HCL 500 MG in 0.9 % Sodium Chloride 100 ML 110 MG IV (16:29)
[2023-03-04] MEDS: Norepinephrine Bitartrate/D5W 8 MG/250 ML PLAST..BAG 65.69 MG IV ×2 (18:36→22:06)
[2023-03-04] MEDS: propofoL 1,000 MG/100 ML VIAL 17.16 MG IVCONT (20:43)
[2023-03-05] VITALS (53 sets, daily range): BP systolic 87–136; BP diastolic 53–94; PULSE 78–100; RESP 19–24; TEMP 34.5–37.4; O2SAT 93–100; BMI 27.7
[2023-03-05] MEDS: 0.9 % Sodium Chloride Flush 3 ML SYRINGE IVFLUSH ×4 (00:42→23:33)
[2023-03-05] MEDS: Norepinephrine Bitartrate/D5W 8 MG/250 ML PLAST..BAG 56.31 MG IV (01:09)
[2023-03-05] MEDS: propofoL 1,000 MG/100 ML VIAL 17.16 MG IVCONT ×4 (02:07→22:27)
--- NOTE | 2023-03-05 03:16 | PC.NURSE ---
ASSUMED CARE OF PT AT 1900. PT REMAINS ON AC VENT SETTINGS WITH NO RESP DIFFICULTIES. BP STABLE ON LEVO. MONITOR SHOWS SR-ST, 90'S-104, NO ECTOPY. U/O 50-100 ML/HR VIA HOLLOWAY CATH. GOOD SEDATION EFFECT ON PROPOFOL AND FENTANYL DRIPS. BOTH TITRATED UP PT WAS WAKING UP AND AGITATED AND RISK FOR SELF EXTUBATION. BILAT WRIST RESTRAINTS ON FOR AIRWAY SAFETY. TURNED AND REPOS Q2HR. SKIN IS INTACT. NO BM.
[2023-03-05] MEDS: Midazolam HCl/PF 2 MG/2 ML VIAL 4 MG IVPUSH (03:47)
[2023-03-05] MEDS: vancomycin HCL 500 MG in 0.9 % Sodium Chloride 100 ML 110 MG IV (04:54)
[2023-03-05] MEDS: cefEPime HCl 2 GM in 0.9 % Sodium Chloride 50 ML IV (04:59)
[2023-03-05 05:02] LABS: VBG Base Excess -5.3 mmol/L; VBG HCO3 19 mmol/L (22-26); VBG pCO2 36 mmHg; VBG pH 7.34 (7.32-7.43); VBG pO2 52 mmHg
[2023-03-05 05:05] LABS: Venous Blood Gas Refer to POC result
[2023-03-05 05:11] LABS: Hemoglobin 10.8 g/dl (14.0-18.0); LEFT SHIFT? 1; Monocytes Percent Auto 7.5 % (2-11); NRBC Pct Auto 0.2 /100WBC (0.0-0.2); PLT ABN DIST 1; Red Cell Distribution Width 25.3 % (11.0-16.0); SCAN SMEAR FLAG 1
[2023-03-05 05:13] LABS: Basophils Absolute Auto 0.1 X10*3/uL (0.0-0.2); Basophils Percent Auto 0.4 % (0-2); Eosinophils Absolute Auto 0.3 X10*3/uL (0.0-0.4); Eosinophils Percent Auto 2.1 % (0-4); Hematocrit 34.1 % (42.0-52.0); Imm Gran Abs Auto 0.26 X10*3/uL (0.00-0.03); Lymphocytes Absolute Auto 1.8 X10*3/uL (1.2-4.9); Lymphocytes Percent Auto 13.4 % (20-40); Mean Corpuscular HGB Conc 31.7 g/dl (31.0-36.0); Mean Corpuscular Hemoglobin 21.8 pg (27.0-33.0); Mean Corpuscular Volume 68.9 fL (80.0-98.0); Neutrophils Absolute Auto 9.7 x10*3/uL (2.0-8.3); Neutrophils Percent Auto 74.6 % (45-73); Platelet Count 103 X10*3/uL (160-400); Red Blood Count 4.95 X10*6/uL (4.60-5.80)
[2023-03-05 05:14] LABS: MANUAL DIFF FLAG NO
[2023-03-05 05:24] LABS: Alanine Aminotransferase 40 U/L (0-40); Albumin Level 3.2 g/dL (3.5-5.0); Alkaline Phosphatase 124 U/L (39-117); Anion Gap 13 (12-20); Aspartate Amino Transferase 51 U/L (5-37); Bilirubin Total 3.9 mg/dL (0.0-1.0); Blood Urea Nitrogen 32 mg/dL (9-16); Carbon Dioxide 17 mmol/L (22-29); Chloride 115 mmol/L (96-108); Creatinine Clr Calc Pharmacy 76.7; Estimated Glomerular Filt Rate 57; Glucose Random 102 mg/dL (60-115); Magnesium 2.3 mg/dL (1.6-2.6); Potassium 3.4 mmol/L (3.3-5.1); Sodium 142 mmol/L (135-145); Total Protein 5.9 g/dL (6.5-8.0)
[2023-03-05] MEDS: Norepinephrine Bitartrate/D5W 8 MG/250 ML PLAST..BAG 50.94 MG IV (05:32)
[2023-03-05] MEDS: Potassium Phosphate/NS 15 MMOL/250 ML PLAST..BAG 62.5 MMOL IV (06:19)
[2023-03-05] MEDS: fentaNYL citrate/NS 1,000 MCG/100 ML PLAST..BAG 10 MCG IVCONT ×2 (06:26→16:05)
[2023-03-05] MEDS: Famotidine/PF 20 MG/2 ML VIAL IVPUSH (08:41)
[2023-03-05] MEDS: Chlorhexidine Gluc Oral Rinse 15 ML MOUTHWASH BUCCAL ×3 (08:41→21:43)
--- NOTE | 2023-03-05 09:37 | P.CDIM_ITS ---
PROVIDER RESPONSE TEXT: To clarify, the appropriate diagnosis supported by the clinical indicators: Encephalopathy: septic QUERY TEXT: PHYSICIAN'S DOCUMENTATION REQUEST Date of Query: 03/05/2023 08:56 AM EDT Patient Name: Norberto Marquez Admit Date: 03/03/2023 Dear Chaka Ortiz, A review of the medical record indicates additional documentation may be needed. Please review below and update the documentation accordingly. Clinical Indicators: per Critical Care Progress Note 03/03/23: alteration of mental status Per Hospitalist Progress Note 03/03/23: patient obtunded Based on the above, could you clarify if any of the following, is the most likely etiology of the con fusion/altered mental status? Encephalopathy Indicate type such as metabolic, toxic, septic, alcoholic, hypertensive, etc. Coma Other (explain) Clinically unable to determine (explain) Thank you, Sena Navarro RN Use of terms such as suspected, likely, concern for, or probable (associated with a specific diagnosi s that is being evaluated, monitored, or treated as if it exists) are acceptable and can be coded in the inpatient se tting, when documented at the time of discharge. Please use your independent medical judgment in providing your response. THIS QUERY IS PART OF THE PERMANENT MEDICAL RECORD
[2023-03-05] MEDS: Norepinephrine Bitartrate/D5W 8 MG/250 ML PLAST..BAG 40.22 MG IV (10:23)
--- NOTE | 2023-03-05 10:40 | PM.CCPN ---
Subjective Subjective Date of Service: 03/05/23 Interval History: 32-year-old gentleman with underlying history of substance abuse, endocarditis with tricuspid valve replaced by bioprosthesis, hepatitis-C, prior pulmonary embolism now on Xarelto admitted early on 03/03/2023 with alteration of mental status, initially treated for polysubstance abuse, further noted to be septic with hypotension refractory to initial IV fluid support requiring initiation of vasopressors, transferred to the intensive care unit and required central venous access placement and intubation with ventilatory support. Now blood cultures positive for Gram-positive cocci. Being covered with broad-spectrum antibiotics. 2D echocardiogram without evidence of valvular vegetation. No events overnight. poor tolerance of pressure support trial today. Critical Care Time (minutes): 45 Physical Exam Vital Signs: Vital Signs: Last Vital Signs Temp 98.4 F 03/05/23 10:00 Pulse 90 03/05/23 10:23 Resp 20 03/05/23 10:00 BP 101/69 03/05/23 10:23 Pulse Ox 97 03/05/23 10:00 O2 Del Method Mechanical Ventil ation 03/05/23 10:00 O2 Flow Rate 50 03/03/23 15:36 FiO2 30 03/05/23 10:00 BMI result Body Mass Index 27.7 Const: General: no acute distress and other ( Sedated on the vent) Eyes: Sclerae: sclerae normal EOM: EOMs intact bilaterally Neck: Neck: Yes no lymphadenopathy, Yes trachea midline and Yes supple Resp: Auscultation: clear to auscultation bilaterally Cardio: Rate: regular rate Rhythm: regular rhythm Heart sounds: no gallops, no murmurs and no rubs GI: Palpation (GI): Soft to palpation and Other GI palpation findings present ( Nontender) Auscultation: normal bowel sounds Extrem: General: Yes no pedal edema, No clubbing and No cyanosis Objective Data Labs 03/05/23 04:55 03/05/23 04:55 Labs: Laboratory Results - last 24 hr 03/04/23 03/05/23 03/05/23 14:04 04:53 04:55 WBC 13.0 H RBC 4.95 Hgb 10.8 L Hct 34.1 L MCV 68.9 L MCH 21.8 L MCHC 31.7 RDW 25.3 H Plt Count 103 L D MPV TNP Immature Gran % (Auto) 2.0 H Neut % (Auto) 74.6 H Lymph % (Auto) 13.4 L [place] % (Auto) 7.5 Eos % (Auto) 2.1 Baso % (Auto) 0.4 Lymph # (Auto) 1.8 [place] # (Auto) 1.0 Eos # (Auto) 0.3 Baso # (Auto) 0.1 Abs Immat Gran (auto) 0.26 H Absolute Neuts (auto) 9.7 H Absolute Nucleated RBC 0.020 H Nucleated RBC % (auto) 0.2 VBG pH 7.34 VBG pCO2 36 VBG pO2 52 VBG HCO3 19 L VBG O2 Saturation 79.0 VBG Base Excess -5.3 Sodium Potassium Chloride Carbon Dioxide Anion Gap BUN Creatinine Estim Creat Clear Calc Estimated GFR Random Glucose Calcium Phosphorus Magnesium Total Bilirubin AST ALT Alkaline Phosphatase Total Protein Albumin Vancomycin Trough 18.6 03/05/23 04:55 WBC RBC Hgb Hct MCV MCH MCHC RDW Plt Count MPV Immature Gran % (Auto) Neut % (Auto) Lymph % (Auto) [place] % (Auto) Eos % (Auto) Baso % (Auto) Lymph # (Auto) [place] # (Auto) Eos # (Auto) Baso # (Auto) Abs Immat Gran (auto) Absolute Neuts (auto) Absolute Nucleated RBC Nucleated RBC % (auto) VBG pH VBG pCO2 VBG pO2 VBG HCO3 VBG O2 Saturation VBG Base Excess Sodium 142 Potassium 3.4 Chloride 115 H Carbon Dioxide 17 L Anion Gap 13 BUN 32 H Creatinine 1.42 H Estim Creat Clear Calc 76.7 Estimated GFR 57 Random Glucose 102 Calcium 8.0 L D Phosphorus 2.0 L Magnesium 2.3 Total Bilirubin 3.9 H AST 51 H ALT 40 Alkaline Phosphatase 124 H Total Protein 5.9 L Albumin 3.2 L Vancomycin Trough Microbiology Microbiology Results: Microbiology 03/03/23 02:47 Blood - Venous Blood Culture - Final Staphylococcus aureus 03/03/23 02:46 Blood - Venous Blood Culture - Final Staphylococcus aureus Progress Note: A&P Assessment and plan (1) Staphylococcus aureus bacteremia with sepsis: Status: Acute (2) Acute respiratory failure: Status: Acute (3) History of endocarditis: Status: Acute (4) Substance abuse: Status: Acute (5) LUCERO (acute kidney injury): Status: Acute (6) S/P tricuspid valve replacement: Status: Acute (7) HCV (hepatitis C virus): Status: Acute Plan Assessment: 32-year-old gentleman with Staph aureus bacteremia and polysubstance abuse now with septic shock and acute respiratory failure requiring ventilatory support. Plan: Neuro: No acute issues. Cardiac: Septic shock, continue to titrate of pressors as tolerated. Underlying history of bioprosthetic tricuspid valve replacement for endocarditis previously and right heart failure. Pulmonary: acute respiratory failure, continue to titrate of ventilatory support as tolerated. poor tolerance of pressure support trial today. Renal: No acute issues. Endo: No acute issues. GI: No acute issues. ID: Staph aureus bacteremia on the background of polysubstance abuse. Blood cultures are pending. Infectious Disease service care appreciated. Continue broad-spectrum antibiotics until blood cultures are finalized. Heme/Onc: No acute issues. Psych: No acute issues. Miscellaneous: No acute issues. Prophylaxis: Heparin, famotidine Diet: tube feeds Critical care time spent: 45 minutes Quality Stroke Does the patient have a stroke diagnosis?: No VTE Prior VTE?: No VTE Risk Level:: Medical - moderate - high VTE Device Contraindication: Treatment Not Indicated VTE Drug Contraindication: N/A - Med Ordered
[2023-03-05] MEDS: Nafcillin Sodium 2 GM in 0.9 % Sodium Chloride 100 ML IV ×3 (10:58→22:37)
[2023-03-05] MEDS: propofoL 1,000 MG/100 ML VIAL 12.87 MG IVCONT (12:28)
--- NOTE | 2023-03-05 13:05 | MHC.CM.PN ---
Addendum entered by Evelyne Gay 03/05/23 13:29: Pt is on probation: nuclear officer is Solitario Rhodes (spelling may not be correct) per pt's mother. Officer Meagan may need to visit pt after one week of hospitalization per protocol. Original Note: Spoke w/pt's HCP/mother Brittany w/updated cell number in EMR: Updated her on current pt conditions (vented,sedated) Per Brittany, pt had been sober for 4 months following a 3 [facility]. She states she had pt placed on a section 35 last year d/t substance use. Brittany states pt has been critically ill many, many times and has also been in various tx centers both voluntary and involuntary (per section 35) many times Pt had been residing w/Brittany and his brother but can no longer return d/t continued drug use. Brittany states pt does not have a PCP but was receiving care at the [facility] pr[facility]. At this time, d/c planning is ongoing and will depend on his extubation ability. Pt will need a CARE team consult for ? MAT or other options. CM to follow for finalization of d/c needs
[2023-03-05] MEDS: Norepinephrine Bitartrate/D5W 8 MG/250 ML PLAST..BAG 32.18 MG IV (16:42)
[2023-03-05] MEDS: Norepinephrine Bitartrate/D5W 8 MG/250 ML PLAST..BAG 34.86 MG IV (22:32)
[2023-03-05] MEDS: Albumin Human 25 % 100 ML IV (23:30)
[2023-03-06] VITALS (38 sets, daily range): BP systolic 93–128; BP diastolic 60–87; PULSE 75–87; RESP 20–31; TEMP 34.6–37.3; O2SAT 95–99
[2023-03-06] MEDS: Albumin Human 25 % 100 ML IV (00:21)
[2023-03-06] MEDS: fentaNYL citrate/NS 1,000 MCG/100 ML PLAST..BAG 10 MCG IVCONT ×3 (01:20→19:45)
[2023-03-06] MEDS: propofoL 1,000 MG/100 ML VIAL 17.16 MG IVCONT ×2 (02:48→08:20)
[2023-03-06] MEDS: Norepinephrine Bitartrate/D5W 8 MG/250 ML PLAST..BAG 40.22 MG IV (04:06)
[2023-03-06] MEDS: Nafcillin Sodium 2 GM in 0.9 % Sodium Chloride 100 ML IV ×4 (04:27→22:49)
[2023-03-06 05:29] LABS: VBG Base Excess -4.7 mmol/L; VBG HCO3 19 mmol/L (22-26); VBG pCO2 33 mmHg; VBG pH 7.37 (7.32-7.43); VBG pO2 53 mmHg
[2023-03-06 05:32] LABS: Venous Blood Gas Refer to POC result
[2023-03-06 05:49] LABS: Mean Corpuscular HGB Conc 31.8 g/dl (31.0-36.0); Mean Corpuscular Hemoglobin 21.8 pg (27.0-33.0); Neutrophils Absolute Auto 9.8 x10*3/uL (2.0-8.3); SCAN SMEAR FLAG 1
[2023-03-06 05:51] LABS: Basophils Absolute Auto 0.1 X10*3/uL (0.0-0.2); Basophils Percent Auto 0.4 % (0-2); Eosinophils Absolute Auto 0.5 X10*3/uL (0.0-0.4); Eosinophils Percent Auto 3.3 % (0-4); Hematocrit 33.3 % (42.0-52.0); Hemoglobin 10.6 g/dl (14.0-18.0); Imm Gran Abs Auto 0.11 X10*3/uL (0.00-0.03); Imm Gran Pct Auto 0.8 % (0.0-0.4); Lymphocytes Absolute Auto 2.5 X10*3/uL (1.2-4.9); Lymphocytes Percent Auto 17.9 % (20-40); Mean Corpuscular Volume 68.4 fL (80.0-98.0); Monocytes Absolute Auto 1.2 X10*3/uL (0.1-1.2); Monocytes Percent Auto 8.3 % (2-11); Neutrophils Percent Auto 69.3 % (45-73); Red Blood Count 4.87 X10*6/uL (4.60-5.80); Red Cell Distribution Width 25.3 % (11.0-16.0); White Blood Count 14.2 X10*3/uL (4.8-10.8)
[2023-03-06 05:52] LABS: MANUAL DIFF FLAG NO; PLT ABN DIST 1; Platelet Count 79 X10*3/uL (160-400)
[2023-03-06 06:08] LABS: Albumin Level 3.4 g/dL (3.5-5.0); Anion Gap 11 (12-20); Blood Urea Nitrogen 28 mg/dL (9-16); Calcium 7.9 mg/dL (8.4-10.2); Carbon Dioxide 18 mmol/L (22-29); Chloride 113 mmol/L (96-108); Creatinine Clr Calc Pharmacy 79.5; Estimated Glomerular Filt Rate 59; Glucose Random 101 mg/dL (60-115); Magnesium 1.9 mg/dL (1.6-2.6); Phosphorus 2.4 mg/dL (2.7-4.5); Potassium 3.4 mmol/L (3.3-5.1); Sodium 139 mmol/L (135-145)
--- NOTE | 2023-03-06 06:28 | PC.NURSE ---
PT REMAINS ON AC VENT SETTINGS WITH NO RESP DIFFICULTIES OVERNIGHT. GOOD SEDATION EFFECT ON PROPOFOL AND FENTANYL DRIPS. RESPONSIVE TO PAINFUL STIMULI. INTERMITTENTLY AWAKENS AND WILL TRY TO REACH UP TO THE ETT. BILAT WRIST RESTRAINTS ON. BP STABLE ON LEVOPHED. AFEBRILE. MONITOR SHOWS NSR, 80'S, NO ECTOPY NOTED. U/O LOW DURING THE NIGHT, 15-30 ML/HR. PROVIDER AWARE AND ALBUMIN 100ML X2 ORDERED AND GIVEN. U/O IMPROVED. TUBE FEEDS ORDERED AND TOLERATED.
[2023-03-06] MEDS: Potassium Phosphate/NS 15 MMOL/250 ML PLAST..BAG 62.5 MMOL IV (07:50)
[2023-03-06] MEDS: Chlorhexidine Gluc Oral Rinse 15 ML MOUTHWASH BUCCAL ×3 (07:50→21:00)
[2023-03-06] MEDS: 0.9 % Sodium Chloride Flush 3 ML SYRINGE IVFLUSH ×2 (07:51→13:38)
[2023-03-06] MEDS: Famotidine/PF 20 MG/2 ML VIAL IVPUSH (07:51)
[2023-03-06] MEDS: Furosemide 20 MG/2 ML VIAL IVPUSH (08:35)
[2023-03-06] MEDS: Rivaroxaban 20 MG TABLET PO (08:35)
[2023-03-06] MEDS: Norepinephrine Bitartrate/D5W 8 MG/250 ML PLAST..BAG 34.86 MG IV (09:55)
--- NOTE | 2023-03-06 10:15 | MHC.CLN ---
F/U PT REMAINS INTUBATED AND SEDATED DISCUSSED AT ROUNDS WITH MD REVIEWED LABS PT CURRENTLY TOLERATING PROMOTE TF AT 20ML/HR TRICKLE FEED RECOMMEND PROMOTE AT MAX GOAL RATE 60ML/HR WITH 120ML FWF Q 4 HRS TO PROVIDE [id number] (1780KCALS WITH SEDATION; 25KCALS/KG), 90G PROTEIN (1.25G/KG), 1928ML TOTAL WATER FROM FORMULA AND FLUSHES (27ML/KG) MONITOR TOLERANCE, RESIDUALS AND LYTES
--- NOTE | 2023-03-06 10:46 | P.PNCC_ITS ---
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 Now blood cultures positive for MSSA. Patient is on nafcillin. 2D echocardiogram without evidence of valvular vegetation. No events overnight. Critical Care Time (minutes): 45 Physical Exam Vital Signs: Vital Signs: Last Vital Signs Temp 97.3 F 03/06/23 10:00 Pulse 86 03/06/23 10:00 Resp 31 H 03/06/23 10:00 BP 116/80 03/06/23 10:00 Pulse Ox 97 03/06/23 10:00 O2 Del Method Mechanical Ventil ation 03/06/23 10:00 O2 Flow Rate 50 03/03/23 15:36 FiO2 30 03/06/23 10:00 BMI result Body Mass Index 27.7 Const: General: no acute distress and other ( Sedated on the vent) Eyes: Sclerae: sclerae normal EOM: EOMs intact bilaterally Neck: Neck: Yes no lymphadenopathy, Yes trachea midline and Yes supple Resp: Auscultation: clear to auscultation bilaterally Cardio: Rate: regular rate Rhythm: regular rhythm Heart sounds: no gallops, no murmurs and no rubs GI: Palpation (GI): Soft to palpation and Other GI palpation findings present ( Nontender) Auscultation: normal bowel sounds Extrem: General: Yes no pedal edema, No clubbing and No cyanosis Objective Data Labs 03/06/23 05:20 03/06/23 05:20 Labs: Laboratory Results - last 24 hr 03/06/23 03/06/23 03/06/23 05:19 05:20 05:20 WBC 14.2 H RBC 4.87 Hgb 10.6 L Hct 33.3 L MCV 68.4 L MCH 21.8 L MCHC 31.8 RDW 25.3 H Plt Count 79 L MPV TNP Immature Gran % (Auto) 0.8 H Neut % (Auto) 69.3 Lymph % (Auto) 17.9 L [place] % (Auto) 8.3 Eos % (Auto) 3.3 Baso % (Auto) 0.4 Lymph # (Auto) 2.5 [place] # (Auto) 1.2 Eos # (Auto) 0.5 H Baso # (Auto) 0.1 Abs Immat Gran (auto) 0.11 H Absolute Neuts (auto) 9.8 H Absolute Nucleated RBC 0.000 Nucleated RBC % (auto) 0.0 VBG pH 7.37 VBG pCO2 33 VBG pO2 53 VBG HCO3 19 L VBG O2 Saturation 81.0 VBG Base Excess -4.7 Sodium 139 Potassium 3.4 Chloride 113 H Carbon Dioxide 18 L Anion Gap 11 L BUN 28 H Creatinine 1.37 Estim Creat Clear Calc 79.5 Estimated GFR 59 Random Glucose 101 Calcium 7.9 L Phosphorus 2.4 L Magnesium 1.9 Albumin 3.4 L Microbiology Microbiology Results: Microbiology 03/04/23 08:31 Blood - Venous Blood Culture - Preliminary No growth after 24 hours. 03/04/23 08:43 Blood - Venous Blood Culture - Preliminary No growth after 24 hours. 03/03/23 02:47 Blood - Venous Blood Culture - Final Staphylococcus aureus 03/03/23 02:46 Blood - Venous Blood Culture - Final Staphylococcus aureus Progress Note: A&P Assessment and plan (1) Staphylococcus aureus bacteremia with sepsis: Status: Acute (2) Acute respiratory failure: Status: Acute (3) History of endocarditis: Status: Acute (4) Substance abuse: Status: Acute (5) LUCERO (acute kidney injury): Status: Acute (6) Polysubstance abuse: Status: Acute Plan Assessment: 32-year-old gentleman with MSSA bacteremia and polysubstance abuse now with septic shock and acute respiratory failure requiring ventilatory support. Plan: Neuro: No acute issues. Cardiac: Septic shock, continue to titrate off pressors as tolerated. Underlying history of bioprosthetic tricuspid valve replacement for endocarditis previously and right heart failure. Pulmonary: acute respiratory failure, continue to titrate off ventilatory support as tolerated. Still with poor tolerance of pressure support trial today. Renal: No acute issues. Endo: No acute issues. GI: No acute issues. ID: MSSA bacteremia on the background of polysubstance abuse. Repeat blood cultures negative. Infectious Disease service care appreciated. Continue nafcillin. Heme/Onc: No acute issues. Psych: No acute issues. Miscellaneous: No acute issues. Prophylaxis: Heparin, famotidine Diet: tube feeds Critical care time spent: 45 minutes Quality Stroke Does the patient have a stroke diagnosis?: No VTE Prior VTE?: No VTE Risk Level:: Medical - moderate - high VTE Device Contraindication: Treatment Not Indicated VTE Drug Contraindication: N/A - Med Ordered
[2023-03-06] MEDS: propofoL 1,000 MG/100 ML VIAL 21.45 MG IVCONT ×4 (12:36→22:51)
--- NOTE | 2023-03-06 15:06 | MHC.CM.PN ---
PT REMAINS IN ICU ON VENTILATORY SUPPORT. CM WILL CONTINUE TO FOLLOW HOSPITAL COURSE FOR DC NEEDS.
[2023-03-06] MEDS: Norepinephrine Bitartrate/D5W 8 MG/250 ML PLAST..BAG 29.49 MG IV (16:45)
[2023-03-07] VITALS (44 sets, daily range): BP systolic 103–137; BP diastolic 62–97; PULSE 26–113; RESP 19–30; TEMP 34.7–37.8; O2SAT 92–97; BMI 29.0
[2023-03-07 00:01] LABS: Anion Gap 12 (12-20); Blood Urea Nitrogen 26 mg/dL (9-16); Calcium 7.8 mg/dL (8.4-10.2); Carbon Dioxide 20 mmol/L (22-29); Chloride 112 mmol/L (96-108); Creatinine Clr Calc Pharmacy 71.2; Estimated Glomerular Filt Rate 52; Glucose Random 111 mg/dL (60-115); Magnesium 1.8 mg/dL (1.6-2.6); Phosphorus 3.2 mg/dL (2.7-4.5); Potassium 3.5 mmol/L (3.3-5.1); Sodium 140 mmol/L (135-145)
[2023-03-07] MEDS: Norepinephrine Bitartrate/D5W 8 MG/250 ML PLAST..BAG 29.49 MG IV (00:07)
[2023-03-07] MEDS: 0.9 % Sodium Chloride Flush 3 ML SYRINGE IVFLUSH ×3 (00:09→15:09)
[2023-03-07] MEDS: Potassium Chloride/H20 40 MEQ/100 ML PIGGYBACK 50 MEQ IV (00:19)
[2023-03-07] MEDS: propofoL 1,000 MG/100 ML VIAL 21.45 MG IVCONT ×6 (02:14→22:19)
[2023-03-07] MEDS: Nafcillin Sodium 2 GM in 0.9 % Sodium Chloride 100 ML IV ×4 (04:28→22:21)
[2023-03-07] MEDS: fentaNYL citrate/NS 1,000 MCG/100 ML PLAST..BAG 10 MCG IVCONT ×2 (04:34→13:05)
[2023-03-07 05:15] LABS: VBG HCO3 19 mmol/L (22-26); VBG pCO2 33 mmHg; VBG pH 7.37 (7.32-7.43); VBG pO2 59 mmHg
[2023-03-07 05:37] LABS: MANUAL DIFF FLAG NO
[2023-03-07 05:41] LABS: Basophils Percent Auto 0.3 % (0-2); Eosinophils Absolute Auto 0.6 X10*3/uL (0.0-0.4); Eosinophils Percent Auto 4.2 % (0-4); Hematocrit 35.7 % (42.0-52.0); Hemoglobin 11.4 g/dl (14.0-18.0); Imm Gran Abs Auto 0.28 X10*3/uL (0.00-0.03); Imm Gran Pct Auto 1.9 % (0.0-0.4); Lymphocytes Absolute Auto 2.7 X10*3/uL (1.2-4.9); Lymphocytes Percent Auto 18.7 % (20-40); Mean Corpuscular HGB Conc 31.9 g/dl (31.0-36.0); Mean Corpuscular Hemoglobin 21.5 pg (27.0-33.0); Mean Corpuscular Volume 67.2 fL (80.0-98.0); Monocytes Absolute Auto 0.9 X10*3/uL (0.1-1.2); Monocytes Percent Auto 6.3 % (2-11); Neutrophils Absolute Auto 9.9 x10*3/uL (2.0-8.3); Neutrophils Percent Auto 68.6 % (45-73); Red Blood Count 5.31 X10*6/uL (4.60-5.80); Red Cell Distribution Width 25.9 % (11.0-16.0); White Blood Count 14.5 X10*3/uL (4.8-10.8)
[2023-03-07 05:42] LABS: Platelet Count 76 X10*3/uL (160-400)
[2023-03-07 05:54] LABS: Albumin Level 3.1 g/dL (3.5-5.0); Anion Gap 15 (12-20); Blood Urea Nitrogen 25 mg/dL (9-16); Calcium 7.8 mg/dL (8.4-10.2); Carbon Dioxide 17 mmol/L (22-29); Chloride 112 mmol/L (96-108); Creatinine Clr Calc Pharmacy 73.6; Estimated Glomerular Filt Rate 54; Glucose Random 126 mg/dL (60-115); Magnesium 1.9 mg/dL (1.6-2.6); Phosphorus 3.1 mg/dL (2.7-4.5); Potassium 4.2 mmol/L (3.3-5.1); Sodium 140 mmol/L (135-145)
[2023-03-07 06:44] LABS: Venous Blood Gas Refer to POC result
[2023-03-07] MEDS: Norepinephrine Bitartrate/D5W 8 MG/250 ML PLAST..BAG 26.81 MG IV (07:56)
[2023-03-07] MEDS: Rivaroxaban 20 MG TABLET PO (08:03)
[2023-03-07] MEDS: Chlorhexidine Gluc Oral Rinse 15 ML MOUTHWASH BUCCAL ×3 (08:03→19:15)
[2023-03-07] MEDS: Famotidine/PF 20 MG/2 ML VIAL IVPUSH (08:03)
[2023-03-07] MEDS: Furosemide 40 MG/4 ML VIAL IVPUSH (09:19)
[2023-03-07] MEDS: Albumin Human 25 % 100 ML IV ×3 (09:23→21:00)
--- NOTE | 2023-03-07 10:27 | PM.CCPN ---
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 Now blood cultures positive for MSSA. Patient is on nafcillin. 2D echocardiogram without evidence of valvular vegetation. No events overnight. continues to do poorly with pressure support trials. Critical Care Time (minutes): 45 Physical Exam Vital Signs: Vital Signs: Last Vital Signs Temp 98.4 F 03/07/23 10:00 Pulse 89 03/07/23 10:00 Resp 29 H 03/07/23 10:00 BP 119/80 03/07/23 10:00 Pulse Ox 95 03/07/23 10:00 O2 Del Method Mechanical Ventil ation 03/07/23 10:00 O2 Flow Rate 50 03/03/23 15:36 FiO2 30 03/07/23 10:00 BMI result Body Mass Index 29.0 Const: General: no acute distress and other ( Sedated on the vent) Eyes: Sclerae: sclerae normal EOM: EOMs intact bilaterally Neck: Neck: Yes no lymphadenopathy, Yes trachea midline and Yes supple Resp: Auscultation: clear to auscultation bilaterally Cardio: Rate: regular rate Rhythm: regular rhythm Heart sounds: no gallops, no murmurs and no rubs GI: Palpation (GI): Soft to palpation and Other GI palpation findings present ( Nontender) Auscultation: normal bowel sounds Extrem: General: Yes no pedal edema, No clubbing and No cyanosis Objective Data Labs 03/07/23 05:05 03/07/23 05:05 Labs: Laboratory Results - last 24 hr 03/06/23 03/07/23 03/07/23 23:32 05:05 05:05 WBC 14.5 H RBC 5.31 Hgb 11.4 L Hct 35.7 L MCV 67.2 L MCH 21.5 L MCHC 31.9 RDW 25.9 H Plt Count 76 L MPV TNP Immature Gran % (Auto) 1.9 H Neut % (Auto) 68.6 Lymph % (Auto) 18.7 L [place] % (Auto) 6.3 Eos % (Auto) 4.2 H Baso % (Auto) 0.3 Lymph # (Auto) 2.7 [place] # (Auto) 0.9 Eos # (Auto) 0.6 H Baso # (Auto) 0.0 Abs Immat Gran (auto) 0.28 H Absolute Neuts (auto) 9.9 H Absolute Nucleated RBC 0.000 Nucleated RBC % (auto) 0.0 VBG pH VBG pCO2 VBG pO2 VBG HCO3 VBG O2 Saturation VBG Base Excess Sodium 140 140 Potassium 3.5 4.2 Chloride 112 H 112 H Carbon Dioxide 20 L 17 L Anion Gap 12 15 BUN 26 H 25 H Creatinine 1.53 H 1.48 H Estim Creat Clear Calc 71.2 73.6 Estimated GFR 52 54 Random Glucose 111 126 H Calcium 7.8 L 7.8 L Phosphorus 3.2 3.1 Magnesium 1.8 1.9 Albumin 3.1 L 03/07/23 05:05 WBC RBC Hgb Hct MCV MCH MCHC RDW Plt Count MPV Immature Gran % (Auto) Neut % (Auto) Lymph % (Auto) [place] % (Auto) Eos % (Auto) Baso % (Auto) Lymph # (Auto) [place] # (Auto) Eos # (Auto) Baso # (Auto) Abs Immat Gran (auto) Absolute Neuts (auto) Absolute Nucleated RBC Nucleated RBC % (auto) VBG pH 7.37 VBG pCO2 33 VBG pO2 59 VBG HCO3 19 L VBG O2 Saturation 87.0 VBG Base Excess -5.0 Sodium Potassium Chloride Carbon Dioxide Anion Gap BUN Creatinine Estim Creat Clear Calc Estimated GFR Random Glucose Calcium Phosphorus Magnesium Albumin Microbiology Microbiology Results: Microbiology 03/04/23 08:31 Blood - Venous Blood Culture - Preliminary No growth after 48 hours. 03/04/23 08:43 Blood - Venous Blood Culture - Preliminary No growth after 48 hours. 03/03/23 02:47 Blood - Venous Blood Culture - Final Staphylococcus aureus 03/03/23 02:46 Blood - Venous Blood Culture - Final Staphylococcus aureus Progress Note: A&P Assessment and plan (1) Staphylococcus aureus bacteremia with sepsis: Status: Acute (2) Acute respiratory failure: Status: Acute (3) History of endocarditis: Status: Acute (4) LUCERO (acute kidney injury): Status: Acute (5) Polysubstance abuse: Status: Acute (6) S/P tricuspid valve replacement: Status: Acute (7) HCV (hepatitis C virus): Status: Acute (8) Right heart failure: Status: Acute Plan Assessment: 32-year-old gentleman with MSSA bacteremia and polysubstance abuse now with septic shock and acute respiratory failure requiring ventilatory support. Plan: Neuro: No acute issues. Cardiac: Septic shock, continue to titrate off pressors as tolerated. Underlying history of bioprosthetic tricuspid valve replacement for endocarditis previously and right heart failure. Pulmonary: acute respiratory failure, continue to titrate off ventilatory support as tolerated. Still with poor tolerance of pressure support trial today. Renal: No acute issues. Endo: No acute issues. GI: No acute issues. ID: MSSA bacteremia on the background of polysubstance abuse. Repeat blood cultures negative. Infectious Disease service care appreciated. Continue nafcillin. Heme/Onc: No acute issues. Psych: No acute issues. Miscellaneous: No acute issues. Prophylaxis: Heparin, famotidine Diet: tube feeds Critical care time spent: 45 minutes Quality Stroke Does the patient have a stroke diagnosis?: No VTE Prior VTE?: No VTE Risk Level:: Medical - moderate - high VTE Device Contraindication: Treatment Not Indicated VTE Drug Contraindication: N/A - Med Ordered
[2023-03-07] MEDS: Norepinephrine Bitartrate/D5W 8 MG/250 ML PLAST..BAG 5.36 MG IV (19:15)
[2023-03-07] MEDS: fentaNYL citrate/NS 1,000 MCG/100 ML PLAST..BAG 12.5 MCG IVCONT (20:08)
[2023-03-07] MEDS: Midazolam HCl/PF 2 MG/2 ML VIAL 4 MG IVPUSH ×2 (20:47→23:00)
[2023-03-07] MEDS: Lactulose 20 GM/30 ML SOLUTION PO (20:58)
[2023-03-08] VITALS (41 sets, daily range): BP systolic 83–125; BP diastolic 47–84; PULSE 70–99; RESP 11–26; TEMP 34–38.1; O2SAT 91–97; BMI 28.5
[2023-03-08] MEDS: fentaNYL citrate/NS 1,000 MCG/100 ML PLAST..BAG 20 MCG IVCONT ×3 (00:55→09:57)
[2023-03-08] MEDS: 0.9 % Sodium Chloride Flush 3 ML SYRINGE IVFLUSH ×4 (01:00→23:51)
[2023-03-08] MEDS: propofoL 1,000 MG/100 ML VIAL 21.45 MG IVCONT ×5 (02:09→21:52)
[2023-03-08] MEDS: Albumin Human 25 % 100 ML IV (04:09)
[2023-03-08] MEDS: Nafcillin Sodium 2 GM in 0.9 % Sodium Chloride 100 ML IV ×4 (04:11→23:49)
[2023-03-08 05:22] LABS: VBG HCO3 23 mmol/L (22-26); VBG pCO2 36 mmHg; VBG pO2 51 mmHg
[2023-03-08 05:49] LABS: Hematocrit 28.9 % (42.0-52.0); Hemoglobin 9.6 g/dl (14.0-18.0); Mean Corpuscular HGB Conc 33.2 g/dl (31.0-36.0); Mean Corpuscular Hemoglobin 22.1 pg (27.0-33.0); Mean Corpuscular Volume 66.6 fL (80.0-98.0); NRBC Pct Auto 0.2 /100WBC (0.0-0.2); Red Blood Count 4.34 X10*6/uL (4.60-5.80); Red Cell Distribution Width 25.5 % (11.0-16.0); White Blood Count 11.2 X10*3/uL (4.8-10.8)
[2023-03-08 05:50] LABS: Platelet Count 86 X10*3/uL (160-400)
[2023-03-08 06:00] LABS: Venous Blood Gas Refer to POC result
[2023-03-08 06:14] LABS: Albumin Level 3.8 g/dL (3.5-5.0); Anion Gap 15 (12-20); Blood Urea Nitrogen 25 mg/dL (9-16); Carbon Dioxide 21 mmol/L (22-29); Chloride 110 mmol/L (96-108); Creatinine Clr Calc Pharmacy 75.7; Estimated Glomerular Filt Rate 55; Glucose Random 95 mg/dL (60-115); Magnesium 1.9 mg/dL (1.6-2.6); Phosphorus 3.5 mg/dL (2.7-4.5); Potassium 3.7 mmol/L (3.3-5.1); Sodium 142 mmol/L (135-145)
[2023-03-08 06:21] LABS: Acanthocytes 3+ (>5) /OIF; Band Neutrophils Percent 5 % (3-5); Burr Cells 3+ (>5) /OIF; Eosinophils Absolute Manual 0.8 X10*3/uL (0.0-0.4); Eosinophils Percent Manual 7 % (0-4); Large Platelet PRESENT; Lymphocytes Absolute Manual 2.5 X10*3/uL (1.2-4.9); Lymphocytes Percent Manual 22 % (20-40); Macrocytosis 1+ (5-14) /OIF; Metamyelocytes Absolute 0.1 X10*3/uL; Metamyelocytes Percent 1 %; Monocytes Absolute Manual 0.6 X10*3/uL (0.1-1.2); Monocytes Percent Manual 5 % (2-11); Neutrophils Absolute Manual 7.3 X10*3/uL (2.0-8.3); Neutrophils Percent Manual 60 % (45-73); Ovalocytes 1+ (5-14) /OIF; Platelet Estimate DECREASED (NORMAL); Platelet Morphology Comment NORMAL; Polychromasia 1+ (0-2) /OIF; RBC Morphology NOTED; Schistocytes 1+ (0-2) /OIF
[2023-03-08 06:22] LABS: Smudge Cells PRESENT
[2023-03-08] MEDS: Famotidine/PF 20 MG/2 ML VIAL IVPUSH (08:44)
[2023-03-08] MEDS: Chlorhexidine Gluc Oral Rinse 15 ML MOUTHWASH BUCCAL ×3 (08:44→21:54)
[2023-03-08] MEDS: Rivaroxaban 20 MG TABLET PO (08:44)
--- NOTE | 2023-03-08 10:13 | PM.CCPN ---
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 Now blood cultures positive for MSSA. Patient is on nafcillin. 2D echocardiogram without evidence of valvular vegetation. No events overnight. Critical Care Time (minutes): 45 Physical Exam Vital Signs: Vital Signs: Last Vital Signs Temp 99.5 F 03/08/23 10:00 Pulse 99 03/08/23 10:00 Resp 22 H 03/08/23 10:00 BP 105/63 03/08/23 10:00 Pulse Ox 94 03/08/23 10:00 O2 Del Method Mechanical Ventil ation 03/08/23 10:00 O2 Flow Rate 50 03/03/23 15:36 FiO2 30 03/08/23 10:00 BMI result Body Mass Index 28.5 Const: General: no acute distress and other ( sedated on the vent) Eyes: Sclerae: sclerae normal EOM: EOMs intact bilaterally Neck: Neck: Yes no lymphadenopathy, Yes trachea midline and Yes supple Resp: Auscultation: clear to auscultation bilaterally Cardio: Rate: regular rate Rhythm: regular rhythm Heart sounds: no gallops, no murmurs and no rubs GI: Palpation (GI): Soft to palpation and Other GI palpation findings present ( Nontender) Auscultation: normal bowel sounds Extrem: General: Yes no pedal edema, No clubbing and No cyanosis Objective Data Labs 03/08/23 05:10 03/08/23 05:10 Labs: Laboratory Results - last 24 hr 03/08/23 03/08/23 03/08/23 05:10 05:10 05:10 WBC 11.2 H Cancelled RBC 4.34 L Cancelled Hgb 9.6 L Cancelled Hct 28.9 L Cancelled MCV 66.6 L Cancelled MCH 22.1 L Cancelled MCHC 33.2 Cancelled RDW 25.5 H Cancelled Plt Count 86 L Cancelled MPV TNP Cancelled Immature Gran % (Auto) Cancelled Neut % (Auto) Cancelled Lymph % (Auto) Cancelled [place] % (Auto) Cancelled Eos % (Auto) Cancelled Baso % (Auto) Cancelled Lymph # (Auto) Cancelled [place] # (Auto) Cancelled Eos # (Auto) Cancelled Baso # (Auto) Cancelled Abs Immat Gran (auto) Cancelled Absolute Neuts (auto) Cancelled Absolute Nucleated RBC 0.020 H Cancelled Nucleated RBC % (auto) 0.2 Cancelled Neutrophils % (Manual) 60 Band Neutrophils % 5 Lymphocytes % (Manual) 22 Monocytes % (Manual) 5 Eosinophils % (Manual) 7 H Metamyelocytes % 1 Abs Neuts (Manual) 7.3 Lymphocytes # (Manual) 2.5 Monocytes # (Manual) 0.6 Eosinophils # (Manual) 0.8 H Metamyelocytes # 0.1 [place] Cells PRESENT Platelet Estimate DECREASED Large Platelets PRESENT Plt Morphology Comment NORMAL RBC Morphology NOTED Polychromasia 1+ (0-2) Macrocytosis 1+ (5-14) Ovalocytes 1+ (5-14) [place] Cells 3+ (>5) Acanthocytes ([place]) 3+ (>5) Schistocytes 1+ (0-2) VBG pH VBG pCO2 VBG pO2 VBG HCO3 VBG O2 Saturation VBG Base Excess Sodium 142 Potassium 3.7 Chloride 110 H Carbon Dioxide 21 L Anion Gap 15 BUN 25 H Creatinine 1.46 H Estim Creat Clear Calc 75.7 Estimated GFR 55 Random Glucose 95 Calcium 8.0 L Phosphorus 3.5 Magnesium 1.9 Albumin 3.8 03/08/23 05:14 WBC RBC Hgb Hct MCV MCH MCHC RDW Plt Count MPV Immature Gran % (Auto) Neut % (Auto) Lymph % (Auto) [place] % (Auto) Eos % (Auto) Baso % (Auto) Lymph # (Auto) [place] # (Auto) Eos # (Auto) Baso # (Auto) Abs Immat Gran (auto) Absolute Neuts (auto) Absolute Nucleated RBC Nucleated RBC % (auto) Neutrophils % (Manual) Band Neutrophils % Lymphocytes % (Manual) Monocytes % (Manual) Eosinophils % (Manual) Metamyelocytes % Abs Neuts (Manual) Lymphocytes # (Manual) Monocytes # (Manual) Eosinophils # (Manual) Metamyelocytes # [place] Cells Platelet Estimate Large Platelets Plt Morphology Comment RBC Morphology Polychromasia Macrocytosis Ovalocytes [place] Cells Acanthocytes ([place]) Schistocytes VBG pH 7.40 VBG pCO2 36 VBG pO2 51 VBG HCO3 23 VBG O2 Saturation 81.0 VBG Base Excess -1.0 Sodium Potassium Chloride Carbon Dioxide Anion Gap BUN Creatinine Estim Creat Clear Calc Estimated GFR Random Glucose Calcium Phosphorus Magnesium Albumin Microbiology Microbiology Results: Microbiology 03/04/23 08:31 Blood - Venous Blood Culture - Preliminary No growth after 48 hours. 03/04/23 08:43 Blood - Venous Blood Culture - Preliminary No growth after 48 hours. 03/03/23 02:47 Blood - Venous Blood Culture - Final Staphylococcus aureus 03/03/23 02:46 Blood - Venous Blood Culture - Final Staphylococcus aureus Progress Note: A&P Assessment and plan (1) Right heart failure: Status: Acute (2) Staphylococcus aureus bacteremia with sepsis: Status: Acute (3) Acute respiratory failure: Status: Acute (4) History of endocarditis: Status: Acute (5) Substance abuse: Status: Acute (6) LUCERO (acute kidney injury): Status: Acute (7) S/P tricuspid valve replacement: Status: Acute Plan Assessment: 32-year-old gentleman with MSSA bacteremia and polysubstance abuse now with septic shock and acute respiratory failure requiring ventilatory support. Plan: Neuro: No acute issues. Cardiac: Septic shock, continue to titrate off pressors as tolerated. Underlying history of bioprosthetic tricuspid valve replacement for endocarditis previously and right heart failure. Pulmonary: acute respiratory failure, continue to titrate off ventilatory support as tolerated. Renal: No acute issues. Endo: No acute issues. GI: No acute issues. ID: MSSA bacteremia on the background of polysubstance abuse. Repeat blood cultures negative. Infectious Disease service care appreciated. Continue nafcillin. Heme/Onc: No acute issues. Psych: No acute issues. Miscellaneous: No acute issues. Prophylaxis: Heparin, famotidine Diet: tube feeds Critical care time spent: 45 minutes Quality Stroke Does the patient have a stroke diagnosis?: No VTE Prior VTE?: No VTE Risk Level:: Medical - moderate - high VTE Device Contraindication: Treatment Not Indicated VTE Drug Contraindication: N/A - Med Ordered
[2023-03-08] MEDS: dexmedeTOMIDidine HCL/NS 400 MCG/100 ML INFUS..BTL 21.28 MCG IVCONT ×2 (10:36→14:22)
[2023-03-08] MEDS: Lactulose 20 GM/30 ML SOLUTION 30 GM PO ×2 (12:28→21:54)
[2023-03-08] MEDS: fentaNYL citrate/NS 1,000 MCG/100 ML PLAST..BAG 10 MCG IVCONT (16:55)
[2023-03-08] MEDS: dexmedeTOMIDidine HCL/NS 400 MCG/100 ML INFUS..BTL 31.91 MCG IVCONT ×2 (18:06→21:36)
[2023-03-08] MEDS: Norepinephrine Bitartrate/D5W 8 MG/250 ML PLAST..BAG 10.73 MG IV (19:14)
[2023-03-09] VITALS (39 sets, daily range): BP systolic 93–129; BP diastolic 49–85; PULSE 74–103; RESP 20–49; TEMP 35–38.7; O2SAT 90–99; BMI 29.3
[2023-03-09] MEDS: dexmedeTOMIDidine HCL/NS 400 MCG/100 ML INFUS..BTL 27.66 MCG IVCONT (01:00)
[2023-03-09] MEDS: propofoL 1,000 MG/100 ML VIAL 17.16 MG IVCONT ×2 (01:44→05:59)
[2023-03-09] MEDS: fentaNYL citrate/NS 1,000 MCG/100 ML PLAST..BAG 10 MCG IVCONT (01:49)
--- NOTE | 2023-03-09 03:08 | PC.NURSE ---
ASSUMED CARE OF PT AT 1900. PT ON AC VENT SETTINGS. NO RESP DISTRESS. O2 SATS 91%-93% AND THEN DROPPING TO 89% DESPITE SUCTIONING AND REPOSITIONING. FIO2 INCREASED TO 40%( WAS 30%). ETT SUCTIONED FOR SMALL TO MOD AMOUNT OF CLEAR THICK SPUTUM. GOOD SEDATION EFFECT ON PROPOFOL, FENTANYL AND PRECEDEX. BP STABLE ON LEVOPHED. MONITOR SHOWS NSR, 70-80'S WITH RUNS OF AFLUTTER. URINE OUTPUT STARTING TO LESSEN AT THIS TIME TO LESS THAN 30 ML/HR. OVERALL 24 HR OUTPUT OK PER PROVIDER. OVERALL 24 HR OUTPUT OK PER PROVIDER. PT TURNED AND REPOS Q2HR.
[2023-03-09] MEDS: dexmedeTOMIDidine HCL/NS 400 MCG/100 ML INFUS..BTL 25.53 MCG IVCONT (04:51)
[2023-03-09] MEDS: Nafcillin Sodium 2 GM in 0.9 % Sodium Chloride 100 ML IV ×4 (04:56→22:58)
[2023-03-09 05:09] LABS: VBG Base Excess -0.5 mmol/L; VBG HCO3 24 mmol/L (22-26); VBG pCO2 38 mmHg; VBG pO2 46 mmHg
[2023-03-09 05:10] LABS: Venous Blood Gas Refer to POC result
[2023-03-09 05:14] LABS: Hemoglobin 10.8 g/dl (14.0-18.0)
[2023-03-09 05:16] LABS: Hematocrit 32.9 % (42.0-52.0); Mean Corpuscular HGB Conc 32.8 g/dl (31.0-36.0); Mean Corpuscular Hemoglobin 21.7 pg (27.0-33.0); Mean Corpuscular Volume 66.1 fL (80.0-98.0); Platelet Count 156 X10*3/uL (160-400); Red Blood Count 4.98 X10*6/uL (4.60-5.80); Red Cell Distribution Width 26.2 % (11.0-16.0); White Blood Count 14.5 X10*3/uL (4.8-10.8)
[2023-03-09] MEDS: fentaNYL citrate/PF 100 MCG/2 ML VIAL IVPUSH (05:20)
[2023-03-09 05:24] LABS: PLT ABN DIST 1
[2023-03-09] MEDS: Acetaminophen 325 MG TABLET 650 MG PO (05:24)
[2023-03-09 05:30] LABS: Albumin Level 3.5 g/dL (3.5-5.0); Anion Gap 16 (12-20); Blood Urea Nitrogen 24 mg/dL (9-16); Calcium 8.2 mg/dL (8.4-10.2); Carbon Dioxide 19 mmol/L (22-29); Chloride 109 mmol/L (96-108); Estimated Glomerular Filt Rate > 60; Glucose Random 112 mg/dL (60-115); Magnesium 1.9 mg/dL (1.6-2.6); Phosphorus 2.9 mg/dL (2.7-4.5); Potassium 3.8 mmol/L (3.3-5.1); Sodium 140 mmol/L (135-145)
[2023-03-09 05:40] LABS: Band Neutrophils Percent 3 % (3-5); Basophils Abs Manual 0.1 X10*3/uL (0.0-0.2); Basophils Percent Manual 1 % (0-2); Eosinophils Absolute Manual 0.4 X10*3/uL (0.0-0.4); Eosinophils Percent Manual 3 % (0-4); Lymphocytes Absolute Manual 3.9 X10*3/uL (1.2-4.9); Lymphocytes Percent Manual 27 % (20-40); Metamyelocytes Absolute 0.3 X10*3/uL; Metamyelocytes Percent 2 %; Monocytes Absolute Manual 0.7 X10*3/uL (0.1-1.2); Monocytes Percent Manual 5 % (2-11); Neutrophils Percent Manual 59 % (45-73); RBC Morphology NOTED
[2023-03-09 05:43] LABS: Acanthocytes 3+ (>5) /OIF; Burr Cells 3+ (>5) /OIF; Microcytosis 1+ (5-14) /OIF; Ovalocytes 1+ (5-14) /OIF
[2023-03-09 05:44] LABS: Target Cells 1+ (5-14) /OIF
[2023-03-09 05:45] LABS: Platelet Estimate SLIGHTLY DECREASED (NORMAL)
[2023-03-09 05:47] LABS: Large Platelet PRESENT
[2023-03-09 05:48] LABS: Polychromasia 1+ (0-2) /OIF; Schistocytes 1+ (0-2) /OIF
[2023-03-09 05:49] LABS: Platelet Morphology Comment NOTE
[2023-03-09] MEDS: Lactulose 20 GM/30 ML SOLUTION 30 GM PO (07:40)
[2023-03-09] MEDS: 0.9 % Sodium Chloride Flush 3 ML SYRINGE IVFLUSH ×3 (07:40→23:52)
[2023-03-09] MEDS: Famotidine/PF 20 MG/2 ML VIAL IVPUSH (07:41)
[2023-03-09] MEDS: Rivaroxaban 20 MG TABLET PO (07:41)
[2023-03-09] MEDS: Chlorhexidine Gluc Oral Rinse 15 ML MOUTHWASH BUCCAL ×2 (07:41→15:18)
[2023-03-09] MEDS: dexmedeTOMIDidine HCL/NS 400 MCG/100 ML INFUS..BTL 31.91 MCG IVCONT ×5 (08:48→21:36)
--- NOTE | 2023-03-09 09:52 | MHC.CLN ---
F/U PT REMAINS INTUBATED AND SEDATED DISCUSSED AT ROUNDS WITH MD REVIEWED LABS PT TF CURRENTLY ON HOLD R/T HIGH RESIDUALS NSG REPORTED PT WITH LARGE BM IF TF TO RE-START; RECOMMEND PROMOTE AT MAX GOAL RATE 60ML/HR WITH 120ML FWF Q 4 HRS TO PROVIDE 1440KCLAS (2006KCALS WITH SEDATION; 28KCALS/KG), 90G PROTEIN (1.25G/KG), 1928ML TOTAL WATER FROM FORMULA AND FLUSHES (27ML/KG) MONITOR TOLERANCE, RESIDUALS AND LYTES
--- NOTE | 2023-03-09 10:01 | MHC.CM.PN ---
Pt remains intubated in ICU: goals of care are for a reduction in sedation and hopeful extubation. D/C plan is unknown and will depend on pt's physical abilities: pt will need CARE team consult.
--- NOTE | 2023-03-09 10:07 | PM.CCPN ---
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 Now blood cultures positive for MSSA. Patient is on nafcillin. 2D echocardiogram without evidence of valvular vegetation. No events overnight. Tolerating pressure support trial today. Critical Care Time (minutes): 45 Physical Exam Vital Signs: Vital Signs: Last Vital Signs Temp 100.9 F H 03/09/23 10:00 Pulse 93 03/09/23 10:00 Resp 38 H 03/09/23 10:00 BP 118/75 03/09/23 10:00 Pulse Ox 96 03/09/23 10:00 O2 Del Method Nasal Cannula 03/09/23 10:00 O2 Flow Rate 3 03/09/23 10:00 FiO2 30 03/09/23 09:00 BMI result Body Mass Index 29.3 Const: General: no acute distress and other (Sedated on the vent) Eyes: Sclerae: sclerae normal EOM: EOMs intact bilaterally Neck: Neck: Yes no lymphadenopathy, Yes trachea midline and Yes supple Resp: Effort & Inspection: normal respiratory effort and no respiratory distress Auscultation: clear to auscultation bilaterally Cardio: Rate: regular rate Rhythm: regular rhythm Heart sounds: no gallops, no murmurs and no rubs GI: Palpation (GI): Soft to palpation and Other GI palpation findings present ( Nontender) Auscultation: normal bowel sounds Extrem: General: Yes no pedal edema, No clubbing and No cyanosis Objective Data Labs 03/09/23 05:00 03/09/23 05:00 Labs: Laboratory Results - last 24 hr 03/09/23 03/09/23 03/09/23 05:00 05:00 05:00 WBC 14.5 H RBC 4.98 Hgb 10.8 L Hct 32.9 L MCV 66.1 L MCH 21.7 L MCHC 32.8 RDW 26.2 H Plt Count 156 L D MPV Not Reportable Immature Gran % (Auto) Cancelled Neut % (Auto) Cancelled Lymph % (Auto) Cancelled [place] % (Auto) Cancelled Eos % (Auto) Cancelled Baso % (Auto) Cancelled Lymph # (Auto) Cancelled [place] # (Auto) Cancelled Eos # (Auto) Cancelled Baso # (Auto) Cancelled Abs Immat Gran (auto) Cancelled Absolute Neuts (auto) Cancelled Absolute Nucleated RBC 0.000 Nucleated RBC % (auto) 0.0 Neutrophils % (Manual) 59 Band Neutrophils % 3 Lymphocytes % (Manual) 27 Monocytes % (Manual) 5 Eosinophils % (Manual) 3 Basophils % (Manual) 1 Metamyelocytes % 2 Abs Neuts (Manual) 9.0 H Lymphocytes # (Manual) 3.9 Monocytes # (Manual) 0.7 Eosinophils # (Manual) 0.4 Basophils # (Manual) 0.1 Metamyelocytes # 0.3 Platelet Estimate SLIGHTLY DECREASED Large Platelets PRESENT Plt Morphology Comment NOTE RBC Morphology NOTED Polychromasia 1+ (0-2) Microcytosis 1+ (5-14) Target Cells 1+ (5-14) Ovalocytes 1+ (5-14) [place] Cells 3+ (>5) Acanthocytes (Spur) 3+ (>5) Schistocytes 1+ (0-2) VBG pH 7.40 VBG pCO2 38 VBG pO2 46 VBG HCO3 24 VBG O2 Saturation 77.0 VBG Base Excess -0.5 Sodium 140 Potassium 3.8 Chloride 109 H Carbon Dioxide 19 L Anion Gap 16 BUN 24 H Creatinine 1.33 Estim Creat Clear Calc 84.0 Estimated GFR > 60 Random Glucose 112 Calcium 8.2 L Phosphorus 2.9 Magnesium 1.9 Albumin 3.5 Microbiology Microbiology Results: Microbiology 03/04/23 08:31 Blood - Venous Blood Culture - Preliminary No growth after 48 hours. 03/04/23 08:43 Blood - Venous Blood Culture - Preliminary No growth after 48 hours. 03/03/23 02:47 Blood - Venous Blood Culture - Final Staphylococcus aureus 03/03/23 02:46 Blood - Venous Blood Culture - Final Staphylococcus aureus Progress Note: A&P Assessment and plan (1) Right heart failure: Status: Acute (2) Staphylococcus aureus bacteremia with sepsis: Status: Acute (3) Acute respiratory failure: Status: Acute (4) History of endocarditis: Status: Acute (5) S/P tricuspid valve replacement: Status: Acute (6) Polysubstance abuse: Status: Acute Plan Assessment: 32-year-old gentleman with MSSA bacteremia and polysubstance abuse now with septic shock and acute respiratory failure requiring ventilatory support. Plan: Neuro: No acute issues. Cardiac: Septic shock, continue to titrate off pressors as tolerated. Underlying history of bioprosthetic tricuspid valve replacement for endocarditis previously and right heart failure. Pulmonary: acute respiratory failure, continue to titrate off ventilatory support as tolerated. Now with improved tolerance of pressure support trials. Renal: No acute issues. Endo: No acute issues. GI: No acute issues. ID: MSSA bacteremia on the background of polysubstance abuse. Repeat blood cultures negative. Infectious Disease service care appreciated. Continue nafcillin. Heme/Onc: No acute issues. Psych: No acute issues. Miscellaneous: No acute issues. Prophylaxis: Heparin, famotidine Diet: tube feeds Critical care time spent: 45 minutes Quality Stroke Does the patient have a stroke diagnosis?: No VTE Prior VTE?: No VTE Risk Level:: Medical - moderate - high VTE Device Contraindication: Treatment Not Indicated VTE Drug Contraindication: N/A - Med Ordered
[2023-03-09] MEDS: ondansetron HCL 4 MG/2 ML VIAL IVPUSH (17:46)
[2023-03-09] MEDS: Ketorolac Tromethamine 15 MG/ML VIAL IVPUSH (20:24)
--- NOTE | 2023-03-09 21:22 | PC.NURSE ---
Assumed care at 1900. Pt is drowsy but stayed awake. Confused. On soft wrist restraints. TLC to right jugular. Sinus tach on monitor HR 103. Tachypniec RR of 44-50 once in awhile . Febrile with T-100-101.3. Mail Superintendent notified. Pt given 1 dose of Toradol 15mg IV.Ice pack applied all over the body. Precedex drip at a max dose of 1.5mcg/kg/hr. Jaundice-more prominent to sclera. Stover care done. Urine output is low at 15-20 ml an hour. Tea colored urine.
[2023-03-10] VITALS (29 sets, daily range): BP systolic 90–105; BP diastolic 46–68; PULSE 68–88; RESP 25–71; TEMP 37–38.1; O2SAT 92–98; BMI 28.4
[2023-03-10] MEDS: dexmedeTOMIDidine HCL/NS 400 MCG/100 ML INFUS..BTL 27.66 MCG IVCONT (00:58)
[2023-03-10] MEDS: dexmedeTOMIDidine HCL/NS 400 MCG/100 ML INFUS..BTL 31.91 MCG IVCONT (04:03)
[2023-03-10 05:13] LABS: VBG Base Excess -3.8 mmol/L; VBG HCO3 20 mmol/L (22-26); VBG pCO2 32 mmHg; VBG pH 7.39 (7.32-7.43); VBG pO2 34 mmHg
[2023-03-10 05:18] LABS: Venous Blood Gas Refer to POC result
[2023-03-10 05:34] LABS: Hematocrit 32.4 % (42.0-52.0); Hemoglobin 10.7 g/dl (14.0-18.0); Mean Corpuscular Hemoglobin 21.6 pg (27.0-33.0); Mean Corpuscular Volume 65.5 fL (80.0-98.0); Red Blood Count 4.95 X10*6/uL (4.60-5.80)
[2023-03-10 05:36] LABS: NRBC Pct Auto 0.1 /100WBC (0.0-0.2); Platelet Count 239 X10*3/uL (160-400); Red Cell Distribution Width 26.3 % (11.0-16.0); White Blood Count 16.9 X10*3/uL (4.8-10.8)
[2023-03-10 05:41] LABS: PLT ABN DIST 1
[2023-03-10] MEDS: ondansetron HCL 4 MG/2 ML VIAL IVPUSH (05:43)
[2023-03-10] MEDS: Nafcillin Sodium 2 GM in 0.9 % Sodium Chloride 100 ML IV ×4 (05:43→22:15)
[2023-03-10 05:50] LABS: Albumin Level 3.2 g/dL (3.5-5.0); Anion Gap 16 (12-20); Blood Urea Nitrogen 33 mg/dL (9-16); Calcium 7.8 mg/dL (8.4-10.2); Carbon Dioxide 18 mmol/L (22-29); Chloride 111 mmol/L (96-108); Creatinine Clr Calc Pharmacy 85.3; Estimated Glomerular Filt Rate > 60; Glucose Random 96 mg/dL (60-115); Phosphorus 4.5 mg/dL (2.7-4.5); Potassium 4.2 mmol/L (3.3-5.1); Sodium 141 mmol/L (135-145)
[2023-03-10 06:04] LABS: Band Neutrophils Percent 2 % (3-5); Burr Cells 3+ (>5) /OIF; Lymphocytes Absolute Manual 4.2 X10*3/uL (1.2-4.9); Lymphocytes Percent Manual 25 % (20-40); Metamyelocytes Absolute 0.7 X10*3/uL; Metamyelocytes Percent 4 %; Microcytosis 1+ (5-14) /OIF; Monocytes Absolute Manual 0.3 X10*3/uL (0.1-1.2); Monocytes Percent Manual 2 % (2-11); Myelocytes Absolute 0.2 X10*/uL; Myelocytes Percent 1 %; Neutrophils Absolute Manual 11.5 X10*3/uL (2.0-8.3); Neutrophils Percent Manual 66 % (45-73); RBC Morphology NOTED
[2023-03-10 06:05] LABS: Acanthocytes 3+ (>5) /OIF; Large Platelet PRESENT; Ovalocytes 1+ (5-14) /OIF; Platelet Estimate NORMAL (NORMAL); Polychromasia 1+ (0-2) /OIF
[2023-03-10 06:06] LABS: Macrocytosis 1+ (5-14) /OIF; Platelet Morphology Comment NOTE; Schistocytes 1+ (0-2) /OIF
[2023-03-10 06:07] LABS: Toxic Vacuolation PRESENT
[2023-03-10] MEDS: 0.9 % Sodium Chloride Flush 3 ML SYRINGE IVFLUSH ×3 (07:33→23:34)
[2023-03-10] MEDS: Famotidine/PF 20 MG/2 ML VIAL IVPUSH (07:33)
[2023-03-10] MEDS: dexmedeTOMIDidine HCL/NS 400 MCG/100 ML INFUS..BTL 25.53 MCG IVCONT (07:35)
[2023-03-10] MEDS: Chlorhexidine Gluc Oral Rinse 15 ML MOUTHWASH BUCCAL (07:37)
[2023-03-10] MEDS: Albumin Human 25 % 100 ML IV ×3 (09:47→19:04)
--- NOTE | 2023-03-10 10:14 | MHC.CM.PN ---
Pt successfully extubated: requiring medication to manage behaviors: pt confused - feels his organs have been removed - refusing blood work and some medications. Pt will need psych eval for ? placement once medically stable. Pt previously residing w/his mother and brother but will not be allowed to return d/t substance use and behaviors. Unknown d/c disposition: possible STR vs INPT psych. No referrals made at this time. CM to follow.
--- NOTE | 2023-03-10 10:15 | P.PNCC_ITS ---
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 Now blood cultures positive for MSSA. Patient is on nafcillin. 2D echocardiogram without evidence of valvular vegetation. Extubated on 03/09/2023. Continuous with intermittent agitation requiring Precedex drip. No events overnight. Critical Care Time (minutes): 45 Physical Exam Vital Signs: Vital Signs: Last Vital Signs Temp 99.3 F 03/10/23 09:00 Pulse 76 03/10/23 09:00 Resp 33 H 03/10/23 09:00 BP 100/62 03/10/23 09:00 Pulse Ox 96 03/10/23 09:00 O2 Del Method Room Air 03/10/23 09:00 O2 Flow Rate 2 03/09/23 16:00 FiO2 30 03/09/23 09:00 BMI result Body Mass Index 28.4 Const: General: no acute distress, alert, awake and other ( Jaundiced) Eyes: Sclerae: scleral abnormal ( icteric) EOM: EOMs intact bilaterally Neck: Neck: Yes no lymphadenopathy, Yes trachea midline and Yes supple Resp: Effort & Inspection: normal respiratory effort and no respiratory distress Auscultation: clear to auscultation bilaterally Cardio: Rate: regular rate Rhythm: regular rhythm Heart sounds: no gallops, no murmurs and no rubs GI: Palpation (GI): Soft to palpation and Other GI palpation findings present ( Nontender) Auscultation: normal bowel sounds Extrem: General: Yes no pedal edema, No clubbing and No cyanosis Objective Data Labs 03/10/23 05:08 03/10/23 05:08 Labs: Laboratory Results - last 24 hr 03/10/23 03/10/23 03/10/23 05:03 05:08 05:08 WBC 16.9 H RBC 4.95 Hgb 10.7 L Hct 32.4 L MCV 65.5 L MCH 21.6 L MCHC 33.0 RDW 26.3 H Plt Count 239 D MPV Not Reportable Immature Gran % (Auto) Cancelled Neut % (Auto) Cancelled Lymph % (Auto) Cancelled [place] % (Auto) Cancelled Eos % (Auto) Cancelled Baso % (Auto) Cancelled Lymph # (Auto) Cancelled [place] # (Auto) Cancelled Eos # (Auto) Cancelled Baso # (Auto) Cancelled Abs Immat Gran (auto) Cancelled Absolute Neuts (auto) Cancelled Absolute Nucleated RBC 0.020 H Nucleated RBC % (auto) 0.1 Neutrophils % (Manual) 66 Band Neutrophils % 2 L Lymphocytes % (Manual) 25 Monocytes % (Manual) 2 Metamyelocytes % 4 Myelocytes % 1 Abs Neuts (Manual) 11.5 H Lymphocytes # (Manual) 4.2 Monocytes # (Manual) 0.3 Metamyelocytes # 0.7 Myelocytes # 0.2 Toxic Vacuolation PRESENT Platelet Estimate NORMAL Large Platelets PRESENT Plt Morphology Comment NOTE RBC Morphology NOTED Polychromasia 1+ (0-2) Microcytosis 1+ (5-14) Macrocytosis 1+ (5-14) Ovalocytes 1+ (5-14) [place] Cells 3+ (>5) Acanthocytes (Spur) 3+ (>5) Schistocytes 1+ (0-2) VBG pH 7.39 VBG pCO2 32 VBG pO2 34 VBG HCO3 20 L VBG O2 Saturation 54.0 VBG Base Excess -3.8 Sodium 141 Potassium 4.2 Chloride 111 H Carbon Dioxide 18 L Anion Gap 16 BUN 33 H Creatinine 1.31 Estim Creat Clear Calc 85.3 Estimated GFR > 60 Random Glucose 96 Calcium 7.8 L Phosphorus 4.5 Magnesium 2.0 Albumin 3.2 L Microbiology Microbiology Results: Microbiology 03/04/23 08:31 Blood - Venous Blood Culture - Final No growth after 5 days. 03/04/23 08:43 Blood - Venous Blood Culture - Final No growth after 5 days. 03/03/23 02:47 Blood - Venous Blood Culture - Final Staphylococcus aureus 03/03/23 02:46 Blood - Venous Blood Culture - Final Staphylococcus aureus Progress Note: A&P Assessment and plan (1) Right heart failure: Status: Acute (2) Staphylococcus aureus bacteremia with sepsis: Status: Acute (3) History of endocarditis: Status: Acute (4) Polysubstance abuse: Status: Acute (5) S/P tricuspid valve replacement: Status: Acute Plan Assessment: 32-year-old gentleman with MSSA bacteremia and polysubstance abuse now with septic shock and acute respiratory failure requiring ventilatory support. Plan: Neuro: No acute issues. Cardiac: Septic shock, continue to titrate off pressors as tolerated. Underlying history of bioprosthetic tricuspid valve replacement for endocarditis previously and right heart failure. Pulmonary: acute respiratory failure, extubated on 03/09/2023. Continue to titrate off supplemental oxygen as tolerated. Renal: No acute issues. Endo: No acute issues. GI: No acute issues. ID: MSSA bacteremia on the background of polysubstance abuse. Repeat blood cultures negative. Infectious Disease service care appreciated. Continue nafcillin. Heme/Onc: No acute issues. Psych: No acute issues. Miscellaneous: No acute issues. Prophylaxis: Heparin Diet: Regular Critical care time spent: 45 minutes Quality Stroke Does the patient have a stroke diagnosis?: No VTE Prior VTE?: No VTE Risk Level:: Medical - moderate - high VTE Device Contraindication: Treatment Not Indicated VTE Drug Contraindication: N/A - Med Ordered
[2023-03-10 10:53] LABS: Alanine Aminotransferase 16 U/L (0-40); Alkaline Phosphatase 146 U/L (39-117); Aspartate Amino Transferase 23 U/L (5-37); Bilirubin Direct 7.4 mg/dL (0.0-0.5); Total Protein 6.2 g/dL (6.5-8.0)
[2023-03-10] MEDS: dexmedeTOMIDidine HCL/NS 400 MCG/100 ML INFUS..BTL 21.28 MCG IVCONT (12:24)
[2023-03-10] MEDS: Rivaroxaban 20 MG TABLET PO (12:24)
[2023-03-10] MEDS: dexmedeTOMIDidine HCL/NS 400 MCG/100 ML INFUS..BTL 29.79 MCG IVCONT ×3 (16:09→22:48)
[2023-03-10] MEDS: lamoTRIgine 25 MG TABLET 50 MG PO (16:47)
--- NOTE | 2023-03-10 19:36 | PC.NURSE ---
Assumed care at 0700- Patient continues to be very confused and disoriented. Precedex drip titrated down this am and patient became very agitated, refusing care. Dr Ortiz advised to increase Precedex drip for sedation. Started diet, tolerating liquids and jello. No nausea vomiting noted. Able to start Lamicital for aggitation. surveillance monitor- sinus rhythm with prolonged QT/QTC. SBP 90's MAP >65. Urine output slightly better after po intake increased, tea colored urine. Albumin given. Total Bilirubin 10, Dr Ortiz aware. Continues on room air without respiratory distress. Receiving Nafcillin every 6 hours via right IJ TLC. See assessment for further documentation.
[2023-03-11] VITALS (24 sets, daily range): BP systolic 92–134; BP diastolic 49–81; PULSE 68–86; RESP 15–43; TEMP 37.9–38.6; O2SAT 91–100; BMI 29.3
[2023-03-11] MEDS: dexmedeTOMIDidine HCL/NS 400 MCG/100 ML INFUS..BTL 29.79 MCG IVCONT ×4 (01:52→21:09)
[2023-03-11] MEDS: Albumin Human 25 % 100 ML IV (01:52)
[2023-03-11] MEDS: Nafcillin Sodium 2 GM in 0.9 % Sodium Chloride 100 ML IV ×4 (04:06→22:34)
[2023-03-11] MEDS: Acetaminophen 325 MG TABLET 650 MG PO ×2 (04:06→18:54)
[2023-03-11 05:10] LABS: VBG Base Excess -3.6 mmol/L; VBG HCO3 19 mmol/L (22-26); VBG pCO2 27 mmHg; VBG pH 7.44 (7.32-7.43); VBG pO2 40 mmHg
[2023-03-11 05:13] LABS: Venous Blood Gas Refer to POC result
[2023-03-11 05:25] LABS: Hematocrit 26.9 % (42.0-52.0); Hemoglobin 8.8 g/dl (14.0-18.0); Mean Corpuscular HGB Conc 32.7 g/dl (31.0-36.0); Mean Corpuscular Hemoglobin 21.9 pg (27.0-33.0); Mean Corpuscular Volume 67.1 fL (80.0-98.0); Platelet Count 262 X10*3/uL (160-400); Red Blood Count 4.01 X10*6/uL (4.60-5.80); Red Cell Distribution Width 25.7 % (11.0-16.0); White Blood Count 12.5 X10*3/uL (4.8-10.8)
[2023-03-11 05:57] LABS: Alanine Aminotransferase 13 U/L (0-40); Albumin Level 4.1 g/dL (3.5-5.0); Alkaline Phosphatase 120 U/L (39-117); Anion Gap 17 (12-20); Aspartate Amino Transferase 18 U/L (5-37); Bilirubin Total 7.7 mg/dL (0.0-1.0); Blood Urea Nitrogen 38 mg/dL (9-16); Calcium 8.8 mg/dL (8.4-10.2); Carbon Dioxide 17 mmol/L (22-29); Chloride 111 mmol/L (96-108); Creatinine Clr Calc Pharmacy 79.9; Estimated Glomerular Filt Rate 58; Glucose Random 130 mg/dL (60-115); Magnesium 2.2 mg/dL (1.6-2.6); Phosphorus 2.5 mg/dL (2.7-4.5); Potassium 3.1 mmol/L (3.3-5.1); Sodium 142 mmol/L (135-145); Total Protein 6.9 g/dL (6.5-8.0)
[2023-03-11 06:00] LABS: Band Neutrophils Percent 3 % (3-5); Lymphocytes Absolute Manual 2.5 X10*3/uL (1.2-4.9); Lymphocytes Percent Manual 20 % (20-40); Macrocytosis 1+ (5-14) /OIF; Metamyelocytes Absolute 0.1 X10*3/uL; Metamyelocytes Percent 1 %; Monocytes Absolute Manual 0.9 X10*3/uL (0.1-1.2); Monocytes Percent Manual 7 % (2-11); Neutrophils Percent Manual 69 % (45-73); RBC Morphology NOTED
[2023-03-11 06:01] LABS: Acanthocytes 1+ (0-2) /OIF; Basophilic Stippling 1+ (0-2) /OIF; Burr Cells 1+ (0-2) /OIF; Large Platelet PRESENT; Ovalocytes 1+ (5-14) /OIF; Platelet Estimate NORMAL (NORMAL); Platelet Morphology Comment NORMAL; Polychromasia 1+ (0-2) /OIF; Schistocytes 1+ (0-2) /OIF; Smudge Cells PRESENT
[2023-03-11] MEDS: Potassium Phosphate/NS 15 MMOL/250 ML PLAST..BAG 62.5 MMOL IV (06:29)
--- NOTE | 2023-03-11 07:07 | PC.NURSE ---
Patient had temp of 101.3 during night. Tylenol 650 mg admininstered with good effect. Temp 100.1 at present. Will continue to monitor.
[2023-03-11] MEDS: lamoTRIgine 25 MG TABLET 50 MG PO ×2 (08:11→20:25)
[2023-03-11] MEDS: Famotidine/PF 20 MG/2 ML VIAL IVPUSH (08:12)
[2023-03-11] MEDS: 0.9 % Sodium Chloride Flush 3 ML SYRINGE IVFLUSH ×2 (08:12→17:49)
[2023-03-11] MEDS: Rivaroxaban 20 MG TABLET PO (08:12)
[2023-03-11] MEDS: Potassium Chloride/H20 40 MEQ/100 ML PIGGYBACK 100 MEQ IV (08:16)
[2023-03-11 08:27] LABS: Ammonia 47 umol/L (13-55)
[2023-03-11] MEDS: dexmedeTOMIDidine HCL/NS 400 MCG/100 ML INFUS..BTL 21.28 MCG IVCONT (09:04)
[2023-03-11] MEDS: ondansetron HCL 4 MG/2 ML VIAL IVPUSH (09:54)
--- NOTE | 2023-03-11 10:24 | P.PNCC_ITS ---
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 Now blood cultures positive for MSSA. Patient is on nafcillin. 2D echocardiogram without evidence of valvular vegetation. Extubated on 03/09/2023. Continuous with intermittent agitation requiring Precedex drip. Also, with cholestasis that appears to be sepsis related, improving. No events overnight. Critical Care Time (minutes): 45 Physical Exam Vital Signs: Vital Signs: Last Vital Signs Temp 100.8 F H 03/11/23 10:00 Pulse 86 03/11/23 10:00 Resp 43 H 03/11/23 10:00 BP 122/81 03/11/23 10:00 Pulse Ox 96 03/11/23 10:00 O2 Del Method Room Air 03/11/23 10:00 O2 Flow Rate 2 03/09/23 16:00 FiO2 30 03/09/23 09:00 BMI result Body Mass Index 29.3 Const: General: no acute distress, alert, awake and other ( Jaundiced) Eyes: Sclerae: scleral abnormal ( icteric) EOM: EOMs intact bilaterally Neck: Neck: Yes no lymphadenopathy, Yes trachea midline and Yes supple Resp: Effort & Inspection: normal respiratory effort and no respiratory distress Auscultation: clear to auscultation bilaterally Cardio: Rate: regular rate Rhythm: regular rhythm Heart sounds: no gallops, no murmurs and no rubs GI: Palpation (GI): Soft to palpation and Other GI palpation findings present ( Nontender) Auscultation: normal bowel sounds Extrem: General: Yes no pedal edema, No clubbing and No cyanosis Objective Data Labs 03/11/23 05:00 03/11/23 05:00 Labs: Laboratory Results - last 24 hr 03/10/23 03/11/23 03/11/23 05:08 05:00 05:00 WBC 12.5 H RBC 4.01 L Hgb 8.8 L Hct 26.9 L MCV 67.1 L MCH 21.9 L MCHC 32.7 RDW 25.7 H Plt Count 262 MPV TNP Immature Gran % (Auto) Cancelled Neut % (Auto) Cancelled Lymph % (Auto) Cancelled [place] % (Auto) Cancelled Eos % (Auto) Cancelled Baso % (Auto) Cancelled Lymph # (Auto) Cancelled [place] # (Auto) Cancelled Eos # (Auto) Cancelled Baso # (Auto) Cancelled Abs Immat Gran (auto) Cancelled Absolute Neuts (auto) Cancelled Absolute Nucleated RBC 0.000 Nucleated RBC % (auto) 0.0 Neutrophils % (Manual) 69 Band Neutrophils % 3 Lymphocytes % (Manual) 20 Monocytes % (Manual) 7 Metamyelocytes % 1 Abs Neuts (Manual) 9.0 H Lymphocytes # (Manual) 2.5 Monocytes # (Manual) 0.9 Metamyelocytes # 0.1 [place] Cells PRESENT Platelet Estimate NORMAL Large Platelets PRESENT Plt Morphology Comment NORMAL RBC Morphology NOTED Polychromasia 1+ (0-2) Basophilic [place]ipp[place] 1+ (0-2) Macrocytosis 1+ (5-14) Ovalocytes 1+ (5-14) [place] Cells 1+ (0-2) Acanthocytes (Spur) 1+ (0-2) Schistocytes 1+ (0-2) VBG pH VBG pCO2 VBG pO2 VBG HCO3 VBG O2 Saturation VBG Base Excess Sodium 142 Potassium 3.1 L D Chloride 111 H Carbon Dioxide 17 L Anion Gap 17 BUN 38 H Creatinine 1.40 Estim Creat Clear Calc 79.9 Estimated GFR 58 Random Glucose 130 H Calcium 8.8 D Phosphorus 2.5 L Magnesium 2.2 Total Bilirubin 10.0 H 7.7 H Direct Bilirubin 7.4 H AST 23 18 ALT 16 13 Alkaline Phosphatase 146 H 120 H Ammonia Total Protein 6.2 L 6.9 Albumin 4.1 03/11/23 03/11/23 05:02 08:09 WBC RBC Hgb Hct MCV MCH MCHC RDW Plt Count MPV Immature Gran % (Auto) Neut % (Auto) Lymph % (Auto) [place] % (Auto) Eos % (Auto) Baso % (Auto) Lymph # (Auto) [place] # (Auto) Eos # (Auto) Baso # (Auto) Abs Immat Gran (auto) Absolute Neuts (auto) Absolute Nucleated RBC Nucleated RBC % (auto) Neutrophils % (Manual) Band Neutrophils % Lymphocytes % (Manual) Monocytes % (Manual) Metamyelocytes % Abs Neuts (Manual) Lymphocytes # (Manual) Monocytes # (Manual) Metamyelocytes # [place] Cells Platelet Estimate Large Platelets Plt Morphology Comment RBC Morphology Polychromasia Basophilic Stippling Macrocytosis Ovalocytes [place] Cells Acanthocytes (Spur) Schistocytes VBG pH 7.44 H VBG pCO2 27 VBG pO2 40 VBG HCO3 19 L VBG O2 Saturation 62.0 VBG Base Excess -3.6 Sodium Potassium Chloride Carbon Dioxide Anion Gap BUN Creatinine Estim Creat Clear Calc Estimated GFR Random Glucose Calcium Phosphorus Magnesium Total Bilirubin Direct Bilirubin AST ALT Alkaline Phosphatase Ammonia 47 Total Protein Albumin Microbiology Microbiology Results: Microbiology 03/04/23 08:31 Blood - Venous Blood Culture - Final No growth after 5 days. 03/04/23 08:43 Blood - Venous Blood Culture - Final No growth after 5 days. 03/03/23 02:47 Blood - Venous Blood Culture - Final Staphylococcus aureus 03/03/23 02:46 Blood - Venous Blood Culture - Final Staphylococcus aureus Progress Note: A&P Assessment and plan (1) LUCERO (acute kidney injury): Status: Acute (2) Sepsis: Status: Acute (3) S/P tricuspid valve replacement: Status: Acute (4) Polysubstance abuse: Status: Acute (5) History of endocarditis: Status: Acute (6) Staphylococcus aureus bacteremia with sepsis: Status: Acute Plan Assessment: 32-year-old gentleman with MSSA bacteremia and polysubstance abuse now with septic shock and acute respiratory failure requiring ventilatory support. Plan: Neuro: Continues to require Precedex treated for septic encephalopathy, im proving. Cardiac: Septic shock, continue to titrate off pressors as tolerated. Underlying history of bioprosthetic tricuspid valve replacement for endocarditis previously and right heart failure. Pulmonary: acute respiratory failure, extubated on 03/09/2023. Continue to titrate off supplemental oxygen as tolerated. Renal: No acute issues. Endo: No acute issues. GI: hyperbilirubinemia PF to be related to cause status secondary to sepsis, improving. ID: MSSA bacteremia on the background of polysubstance abuse. Repeat blood cultures negative. Infectious Disease service care appreciated. Continue nafcillin. Heme/Onc: No acute issues. Psych: No acute issues. Miscellaneous: No acute issues. Prophylaxis: Heparin Diet: Regular Critical care time spent: 45 minutes Quality Stroke Does the patient have a stroke diagnosis?: No VTE Prior VTE?: No VTE Risk Level:: Medical - moderate - high VTE Device Contraindication: Treatment Not Indicated VTE Drug Contraindication: N/A - Med Ordered
--- NOTE | 2023-03-11 10:39 | HE.PHANOTE ---
RE: methadone Received verification from [facility] of 95mg on 02/13/23 with 13 take home bottles.
[2023-03-11] MEDS: methADONE HCl 20 MG/2 ML ORAL.CONC 95 MG PO (13:07)
[2023-03-11] MEDS: Nicotine 7 MG PATCH.TD24 TRANSDERMA (13:07)
[2023-03-11] MEDS: dexmedeTOMIDidine HCL/NS 400 MCG/100 ML INFUS..BTL 25.53 MCG IVCONT (13:44)
--- NOTE | 2023-03-11 15:27 | MHC.CM.PN ---
EMR REVIEWD AND PER MD ROUNDS, PT CONTINUES TO REQUIRE ICU LEVEL OF CARE . CM WILL CONTINUE TO FOLLOW FOR DC NEEDS
[2023-03-11] MEDS: diphenhydrAMINE HCL 50 MG/ML VIAL 12.5 MG IVPUSH (20:24)
--- NOTE | 2023-03-11 22:45 | PC.NURSE ---
Addendum entered by Alfredito Chun RN 03/11/23 22:57: Patient with fever, Tmax 101.3, tylenol adminitered per Emar, and with minimal effect. Patient also with chills, applying warm blankets. Addendum entered by Alfredito Chun RN 03/11/23 22:56: Patient ate poorly all day, had 50% breakfast, refused lunch, had a few bites of dinner. His family bringing in food from home, ok per PA Original Note: Assumed care at 07:00. Patient was alert, disoriented to time, vague, impulsive, confabulating or apparently delerious at times, but oriented to person, place, and vague to situation, grew progressively less confused over the course of the day. Patient continues on Precedex, which was titrated down per MD and per orders to as low as 0.8, and patient was restless, agitated, episodically, and the dose was eventually titrated back up to 1.4. Patient also is taking his lamictal. Patient moves all extremiteis, follows commands, PERRL, responds appropriately the majority of the time, and sometimes agitated and confabulating. Patient restraints discontinued at 8 am with good effect. Patient rectal tube discontinued at 830 am with good effect. Patient was incontinent of copious amount of loose brown stools, and subsequently another smaller BM. Patient with diminished lung sounds, tachypnea up to rate of 42 at times, but episodic and resolving on its own after short intervals. Patient on room air with SpO2 94%, was found to drop SpO2 to 88-89% with sleeping, and was started on 2 LPM overnight by nasal cannula. Patient began the day asking for cigarettes, endorses smoking 3 cigarettes daily, and was interested in NRT, MD aware and new order for nicotine patch, placed on right arm. Patient in morning when asked if he had pain anywhere endorsed pain, specified he takes methadone, then denied pain. Patient reported getting methadone from [facility], this was reported to MD and [facility] was contacted and dose from 2020 was verified, then in discussion with patient, patient revised history to say he was getting methadone from [facility] with dose of 95 mg daily, and [facility] was contacted, dose confirmed, faxed to pharmacy and discussed with MD, and new order for methadone, administered with good effect. Patient with distant heat sounds, sinus rhythm on monitor with no ectopy, generalized mild 1+ edema in BUE and BLE. Low urine outputs, from 40-50 cc/hour up to 70 cc/ hour, and down to 15 cc/hour this evening, and PA aware. patient is also taking in large amounts of juice brought in from his mother, PA aware. Patient burr draining tea colored urine, round abdomen is nontender. Patient reported itching at his TLC site under the dressing, and PA notified, and patient encouraged not to scratch, and IV benedryl ordered and administered with good effect. Patient asking for something to help him sleep, PA notified, no new orders at this time.
[2023-03-11] MEDS: HYDROmorphone HCl 1 MG/ML SYRINGE IVPUSH (23:59)
[2023-03-12] VITALS (24 sets, daily range): BP systolic 101–146; BP diastolic 57–79; PULSE 73–143; RESP 12–44; TEMP 37–39.5; O2SAT 92–97; BMI 30.5
--- NOTE | 2023-03-12 | ECG_ITS ---
Test Reason : svt Blood Pressure : / mmHG Vent. Rate : 152 BPM Atrial Rate : 152 BPM P-R Int : 118 ms QRS Dur : 084 ms QT Int : 330 ms P-R-T Axes : 056 033 029 degrees QTc Int : 524 ms Sinus tachycardia Abnormal ECG When compared with ECG of 04-MAR-2023 05:32, possilble rhythm change T wave inversion no longer evident in Anterior leads Referred By: Gaurav Snowden Electronically Signed By:VIOLET SULLIVAN
[2023-03-12] MEDS: dexmedeTOMIDidine HCL/NS 400 MCG/100 ML INFUS..BTL 31.91 MCG IVCONT ×3 (03:00→05:11)
[2023-03-12 05:04] LABS: VBG HCO3 19 mmol/L (22-26); VBG pCO2 28 mmHg; VBG pH 7.43 (7.32-7.43); VBG pO2 32 mmHg
[2023-03-12] MEDS: Nafcillin Sodium 2 GM in 0.9 % Sodium Chloride 100 ML IV ×3 (05:06→17:35)
[2023-03-12 05:09] LABS: Hematocrit 24.1 % (42.0-52.0); Hemoglobin 7.6 g/dl (14.0-18.0); Mean Corpuscular HGB Conc 31.5 g/dl (31.0-36.0); Mean Corpuscular Hemoglobin 21.8 pg (27.0-33.0); Mean Corpuscular Volume 69.3 fL (80.0-98.0); Mean Platelet Volume 10.2 fL (9.4-12.4); NRBC Pct Auto 0.2 /100WBC (0.0-0.2); Platelet Count 275 X10*3/uL (160-400); Red Blood Count 3.48 X10*6/uL (4.60-5.80); Red Cell Distribution Width 25.7 % (11.0-16.0); White Blood Count 12.8 X10*3/uL (4.8-10.8)
[2023-03-12 05:30] LABS: Alanine Aminotransferase 15 U/L (0-40); Albumin Level 3.7 g/dL (3.5-5.0); Alkaline Phosphatase 124 U/L (39-117); Anion Gap 13 (12-20); Aspartate Amino Transferase 18 U/L (5-37); Bilirubin Total 6.5 mg/dL (0.0-1.0); Blood Urea Nitrogen 32 mg/dL (9-16); Calcium 8.6 mg/dL (8.4-10.2); Carbon Dioxide 19 mmol/L (22-29); Chloride 110 mmol/L (96-108); Creatinine Clr Calc Pharmacy 84.1; Estimated Glomerular Filt Rate > 60; Glucose Random 91 mg/dL (60-115); Phosphorus 3.2 mg/dL (2.7-4.5); Potassium 3.9 mmol/L (3.3-5.1); Sodium 138 mmol/L (135-145); Total Protein 6.6 g/dL (6.5-8.0)
[2023-03-12 05:34] LABS: Band Neutrophils Percent 2 % (3-5); Eosinophils Absolute Manual 0.3 X10*3/uL (0.0-0.4); Eosinophils Percent Manual 2 % (0-4); Large Platelet PRESENT; Lymphocytes Absolute Manual 2.7 X10*3/uL (1.2-4.9); Lymphocytes Percent Manual 21 % (20-40); Macrocytosis 1+ (5-14) /OIF; Metamyelocytes Absolute 0.1 X10*3/uL; Metamyelocytes Percent 1 %; Monocytes Absolute Manual 0.6 X10*3/uL (0.1-1.2); Monocytes Percent Manual 5 % (2-11); Neutrophils Absolute Manual 9.1 X10*3/uL (2.0-8.3); Neutrophils Percent Manual 69 % (45-73); Ovalocytes 1+ (5-14) /OIF; Platelet Estimate NORMAL (NORMAL); Platelet Morphology Comment NORMAL; RBC Morphology NOTED; Schistocytes 1+ (0-2) /OIF
[2023-03-12 05:35] LABS: Burr Cells 1+ (0-2) /OIF; Polychromasia 1+ (0-2) /OIF; Smudge Cells PRESENT
[2023-03-12 05:38] LABS: Venous Blood Gas Refer to POC result
[2023-03-12] MEDS: Acetaminophen 325 MG TABLET 650 MG PO ×3 (06:36→18:28)
[2023-03-12] MEDS: methADONE HCl 20 MG/2 ML ORAL.CONC 95 MG PO (08:18)
[2023-03-12] MEDS: Haloperidol Lactate 5 MG/ML VIAL 10 MG IVPUSH (08:20)
[2023-03-12] MEDS: Famotidine/PF 20 MG/2 ML VIAL IVPUSH (08:20)
[2023-03-12] MEDS: 0.9 % Sodium Chloride Flush 3 ML SYRINGE IVFLUSH ×2 (08:26→17:35)
[2023-03-12] MEDS: lamoTRIgine 25 MG TABLET 50 MG PO ×2 (08:27→19:56)
[2023-03-12] MEDS: Rivaroxaban 20 MG TABLET PO (08:27)
[2023-03-12] MEDS: Nicotine 7 MG PATCH.TD24 TRANSDERMA (08:28)
--- NOTE | 2023-03-12 10:27 | MHC.CM.PN ---
Pt extubated and communicative in ICU: received Haldol this am for increased aggitated behaviors and d/t lethary, is not able to participate in d/c planning discussion. Pt on probation and was residing w/his brother and mother but per mother, pt will not be allowed back. Unknown d/c plan at this time: Will await appropriate discussion w/pt once his medication effects have passed. Pt may need psych consult for possible INPT placement to maximize psych medication. CM to follow.
--- NOTE | 2023-03-12 13:03 | PM.CCPN ---
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 Now blood cultures positive for MSSA. Patient is on nafcillin. 2D echocardiogram without evidence of valvular vegetation. Extubated on 03/09/2023. Continuous with intermittent agitation requiring Precedex drip. Also, with cholestasis that appears to be sepsis related, improving. No events overnight. Titrated off pressor based drip. Hyperbilirubinemia is improving. Critical Care Time (minutes): 0 Physical Exam Vital Signs: Vital Signs: Last Vital Signs Temp 99.5 F 03/12/23 12:00 Pulse 118 H 03/12/23 12:00 Resp 19 03/12/23 12:00 BP 138/69 03/12/23 12:00 Pulse Ox 95 03/12/23 12:00 O2 Del Method Nasal Cannula 03/12/23 12:00 O2 Flow Rate 2 03/12/23 12:00 FiO2 30 03/09/23 09:00 BMI result Body Mass Index 30.5 Const: General: no acute distress, alert and awake Eyes: Sclerae: sclerae normal EOM: EOMs intact bilaterally Neck: Neck: Yes no lymphadenopathy, Yes trachea midline and Yes supple Resp: Effort & Inspection: normal respiratory effort and no respiratory distress Auscultation: clear to auscultation bilaterally Cardio: Rate: tachycardic Rhythm: regular rhythm Heart sounds: no gallops, no murmurs and no rubs GI: Palpation (GI): Soft to palpation, Firmness to palpation present (GI) and nontender Auscultation: normal bowel sounds Extrem: General: Yes no pedal edema, No clubbing and No cyanosis Objective Data Labs 03/12/23 04:55 03/12/23 04:55 Labs: Laboratory Results - last 24 hr 03/12/23 03/12/23 03/12/23 04:55 04:55 04:55 WBC 12.8 H RBC 3.48 L Hgb 7.6 L Hct 24.1 L MCV 69.3 L MCH 21.8 L MCHC 31.5 RDW 25.7 H Plt Count 275 MPV 10.2 Immature Gran % (Auto) Cancelled Neut % (Auto) Cancelled Lymph % (Auto) Cancelled [place] % (Auto) Cancelled Eos % (Auto) Cancelled Baso % (Auto) Cancelled Lymph # (Auto) Cancelled [place] # (Auto) Cancelled Eos # (Auto) Cancelled Baso # (Auto) Cancelled Abs Immat Gran (auto) Cancelled Absolute Neuts (auto) Cancelled Absolute Nucleated RBC 0.030 H Nucleated RBC % (auto) 0.2 Neutrophils % (Manual) 69 Band Neutrophils % 2 L Lymphocytes % (Manual) 21 Monocytes % (Manual) 5 Eosinophils % (Manual) 2 Metamyelocytes % 1 Abs Neuts (Manual) 9.1 H Lymphocytes # (Manual) 2.7 Monocytes # (Manual) 0.6 Eosinophils # (Manual) 0.3 Metamyelocytes # 0.1 Smudge Cells PRESENT Platelet Estimate NORMAL Large Platelets PRESENT Plt Morphology Comment NORMAL RBC Morphology NOTED Polychromasia 1+ (0-2) Macrocytosis 1+ (5-14) Ovalocytes 1+ (5-14) [place] Cells 1+ (0-2) Schistocytes 1+ (0-2) VBG pH 7.43 VBG pCO2 28 VBG pO2 32 VBG HCO3 19 L VBG O2 Saturation 50.0 VBG Base Excess -4.0 Sodium 138 Potassium 3.9 D Chloride 110 H Carbon Dioxide 19 L Anion Gap 13 BUN 32 H Creatinine 1.33 Estim Creat Clear Calc 84.1 Estimated GFR > 60 Random Glucose 91 Calcium 8.6 Phosphorus 3.2 Magnesium 2.0 Total Bilirubin 6.5 H AST 18 ALT 15 Alkaline Phosphatase 124 H Total Protein 6.6 Albumin 3.7 Microbiology Microbiology Results: Microbiology 03/04/23 08:31 Blood - Venous Blood Culture - Final No growth after 5 days. 03/04/23 08:43 Blood - Venous Blood Culture - Final No growth after 5 days. 03/03/23 02:47 Blood - Venous Blood Culture - Final Staphylococcus aureus 03/03/23 02:46 Blood - Venous Blood Culture - Final Staphylococcus aureus Progress Note: A&P Assessment and plan (1) Right heart failure: Status: Acute (2) Staphylococcus aureus bacteremia with sepsis: Status: Acute (3) History of endocarditis: Status: Acute (4) Substance abuse: Status: Acute (5) Hyperbilirubinemia: Status: Acute (6) HCV (hepatitis C virus): Status: Acute (7) S/P tricuspid valve replacement: Status: Acute Plan Assessment: 32-year-old gentleman with MSSA bacteremia and polysubstance abuse now with septic shock and acute respiratory failure requiring ventilatory support. Plan: Neuro: Titrated off Precedex. Cardiac: Septic shock, continue to titrate off pressors as tolerated. Underlying history of bioprosthetic tricuspid valve replacement for endocarditis previously and right heart failure. Pulmonary: acute respiratory failure, extubated on 03/09/2023. Continue to titrate off supplemental oxygen as tolerated. Renal: No acute issues. Endo: No acute issues. GI: hyperbilirubinemia likely related to cholestasis secondary to sepsis, improving. Abdominal ultrasound essentially normal. ID: MSSA bacteremia on the background of polysubstance abuse. Repeat blood cultures negative. Infectious Disease service care appreciated. Continue nafcillin. Heme/Onc: No acute issues. Psych: No acute issues. Miscellaneous: No acute issues. Prophylaxis: Xarelto Diet: Regular Quality Stroke Does the patient have a stroke diagnosis?: No VTE Prior VTE?: No VTE Risk Level:: Medical - moderate - high VTE Device Contraindication: Treatment Not Indicated VTE Drug Contraindication: N/A - Med Ordered
--- NOTE | 2023-03-12 14:17 | PC.NURSE ---
ICU transfer up to unit around 13:12, bedside report given to this nurse. pt resting comfortably, A&O x 3, vitals within normal limits, denies pain. pt is adamant on leaving AMA. pt states I am one here, I want to leave. when my mom gets here i'm gonna go . this nurse explained to pt that he has an infection and needs IV abx to treat and to get better before he gets discharged in which the pt states I am aware and I want to go . notified.
--- NOTE | 2023-03-12 16:06 | PC.NURSE ---
Tami Luna from care team came and spoke to Pt. pt has decided to stay. notified.
[2023-03-12] MEDS: ondansetron HCL 4 MG/2 ML VIAL IVPUSH (18:18)
--- NOTE | 2023-03-12 18:30 | PC.NURSE ---
at hourly rounding this nurse check in on pt. pt states he is feeling nauseous - PRN zofran given. pt felt warm, temp checked - 102.3 temporal. PRN tylenol given. MD notified and okeyed to given tylenol early will continue to monitor.
[2023-03-12] MEDS: Acetaminophen 1,000 MG/100 ML PIGGYBACK 400 MG IV (22:07)
--- NOTE | 2023-03-12 22:15 | PC.NURSE ---
Addendum entered by Sammie Ku RN 03/12/23 22:48: Rectal temp 100.3 s/p IV tylenol, HR 109, Pt resting in bed comfortably and sleeping. Original Note: Pt had temp of 102 around 1800. he received po tylenol at 1830. HR was in the 140s. 1929 he remained febrile. Ice packs applied to groin and armpits and cool compress to forehead. Pt had chills/rigors. Upon checking oral temp at 1999 it was 100.1, followed by 99.1 at 2029. HR improved to 127. However, Pt was still having chills and felt very hot and verbalized feeling like he's burning up. Checked rectal temp at 2119 and it is 102 rectal. His HR is now improving though,, currently 113 He remains with the chills, and says he won't allow another rectal temp and is not due for more tylenol. MD Lang notified and ordered IV tylenol, med given.
[2023-03-13] MEDS: Nafcillin Sodium 2 GM in 0.9 % Sodium Chloride 100 ML IV ×5 (00:20→23:55)
[2023-03-13] MEDS: 0.9 % Sodium Chloride Flush 3 ML SYRINGE IVFLUSH ×3 (00:20→16:41)
[2023-03-13 03:53] VITALS: BP 129/75; PULSE 103; RESP 22; TEMP 37.1; O2SAT 96
[2023-03-13 08:00] VITALS: BP 124/74; PULSE 104; RESP 22; TEMP 36.5; O2SAT 95
[2023-03-13] MEDS: ondansetron HCL 4 MG/2 ML VIAL IVPUSH (08:34)
[2023-03-13] MEDS: Nicotine 7 MG PATCH.TD24 TRANSDERMA (08:36)
[2023-03-13] MEDS: Rivaroxaban 20 MG TABLET PO (08:38)
[2023-03-13] MEDS: lamoTRIgine 25 MG TABLET 50 MG PO (08:38)
--- NOTE | 2023-03-13 08:51 | P.PNIM_ITS ---
Subjective Subjective Date of Service: 03/13/23 Interval History: chills, unwell Physical Exam Vital Signs: Vital Signs: Last Vital Signs Temp 97.7 F 03/13/23 08:00 Pulse 104 H 03/13/23 08:00 Resp 22 H 03/13/23 08:00 BP 124/74 03/13/23 08:00 Pulse Ox 95 03/13/23 08:00 O2 Del Method Nasal Cannula 03/13/23 08:00 O2 Flow Rate 1.5 03/13/23 08:00 FiO2 30 03/09/23 09:00 BMI result Body Mass Index 30.5 frail, ill appearing, diminished breath sounds, alert oriented times 3, Objective Data Active Medications Acetaminophen (Acetaminophen 325 Mg Tablet) 650 mg PO Q6H PRN PRN Reason: Pain, Mild (Pain Scale 1-3) Last Admin: 03/12/23 18:28 Dose: 650 mg Documented By: KEVIN Nafcillin Sodium 2 gm/ Sodium (Chloride) 100 mls @ 200 mls/hr IV Q6H [facility] Last Infusion: 03/13/23 04:52 Dose: 0 mls/hr Documented By: ESTELLA Lamotrigine (Lamotrigine 25 Mg Tablet) 50 mg PO BID [facility] Last Admin: 03/13/23 08:38 Dose: 50 mg Documented By: KEVIN Methadone HCl (Methadone Hcl 20 Mg/2 Ml Oral.Conc) 95 mg PO DAILY [facility] Last Admin: 03/12/23 08:18 Dose: 95 mg Documented By: ELLA Naloxone HCl (Naloxone Hcl 0.4 Mg/Ml Vial) 0.2 mg IVPUSH Q2M PRN PRN Reason: Excessive sedation or RR < 8 Nicotine (Nicotine 7 Mg Patch.Td24) 7 mg TRANSDERMA DAILY [facility] Last Admin: 03/13/23 08:36 Dose: 7 mg Documented By: KEVIN Ondansetron HCl (Ondansetron Hcl 4 Mg/2 Ml Vial) 4 mg IVPUSH Q8H PRN PRN Reason: Nausea and Vomiting Last Admin: 03/13/23 08:34 Dose: 4 mg Documented By: KEVIN Rivaroxaban (Rivaroxaban 20 Mg Tablet) 20 mg PO DAILY [facility] Last Admin: 03/13/23 08:38 Dose: 20 mg Documented By: KEVIN Sodium Chloride (0.9 % Sodium Chloride Flush 3 Ml Syringe) 3 ml IVFLUSH QSHIFT [facility] Last Admin: 03/13/23 08:34 Dose: 3 ml Documented By: KEVNI Labs 03/12/23 04:55 03/12/23 04:55 Assessment and Plan (1) Acute respiratory failure: Status: Acute Plan 32M PMH IVDA, tricuspid endocarditis with MSSA, PE on xarelto, HCV, presented with lethargy. patient decompensated shortly after admission, required intubation, pressors, blood cultures growing MSSA. treated in ICU with nafcillin, extubated and weaned off pressors, downgraded 03/12/23. septic shock, acute metabolic encephalopathy, and acute hypoxic respiratory failure due to MSSA bacteremia in IVDA off pressors, extubated - wean o2 as tolerated, mental status back to baseline continue nafcillin, follow up cultures, TTE negative for vegetations acute liver injury due to hypotensiton in background of HCV untreated monitor LFTs history of PE continue xarelto acute anemia due to sepsis monitor opiate depednence with withdrawal methadone addiction medicine following full code reason for continued hospitalization:awaiting defervesence. actively withdrawing Time Spent With Patient Time: Total time managing care of this patient today ____ minutes. Quality Stroke Does the patient have a stroke diagnosis?: No VTE Prior VTE?: No VTE Risk Level:: Medical - moderate - high VTE Device Contraindication: Treatment Not Indicated VTE Drug Contraindication: N/A - Med Ordered
--- NOTE | 2023-03-13 08:54 | HO.ADDICTPRO ---
Subjective Subjective Date of Service: 03/13/23 Reason For Visit: IVDU Sepsis Interim History: Patient is a 32 year old male recently transferred to the medical telemetry unit from the ICU following acute respiratory failure, requiring intubation,and sepsis. Patient known to this promotion writer and the [facility]. Seen briefly on 03/12/23 when patient was expressing that he wanted to discharge against medical advice--he ultimately decided to stay. RN messaged this morning stating that patient feels current methadone dose of 95mg is too high. Patient seen in room 445 with food expeditor. Awake, alert, laying in bed, appearing weak, but engaged in interview. He reports that he was getting take home bottles of methadone and was taking 95mg every other day, so when he has received 95mg here he felt dizzy and nauseous. Agreeable to decreasing to 50mg daily and then reassess. Review of Systems Constitutional: Reports as per HPI, Reports malaise and Reports weakness Reports weakness Mental Status Exam Mental Status Exam Patient Appearance: Fatigued Patient Orientation: Person, Place, Time and Situation Level of Consciousness: Awake and Alert Affect Description: Blunted Diagnostics Vital Signs (24Hr): Vital Signs - 24 hr 03/12/23 09:00 03/12/23 10:00 03/12/23 11:00 Temperature 100.2 F 99.0 F 98.6 F Pulse Rate 79 84 87 Respiratory Rate 15 12 20 Blood Pressure 116/69 105/75 Pulse Oximetry 93 92 95 Oxygen Delivery Method Nasal Cannula Nasal Cannula Nasal Cannula Oxygen Flow Rate 2 2 2 03/12/23 12:00 03/12/23 11:34 03/12/23 13:00 Temperature 99.5 F 99.1 F Pulse Rate 118 H 96 132 H Respiratory Rate 19 22 H Blood Pressure 138/69 129/79 146/78 H Pulse Oximetry 95 93 Oxygen Delivery Method Nasal Cannula Nasal Cannula Oxygen Flow Rate 2 1.5 03/12/23 14:27 03/12/23 15:33 03/12/23 19:44 Temperature 99.1 F 98.8 F 102 F H Pulse Rate 143 H 140 H Respiratory Rate 20 20 Blood Pressure 134/79 135/72 Pulse Oximetry 97 92 Oxygen Delivery Method Nasal Cannula Nasal Cannula Oxygen Flow Rate 1.5 2 03/12/23 20:00 03/12/23 20:30 03/12/23 21:50 Temperature 100.1 F 99.1 F 102 F H Pulse Rate 127 H 127 H Respiratory Rate 20 Blood Pressure Pulse Oximetry Oxygen Delivery Method Oxygen Flow Rate 03/12/23 22:47 03/12/23 22:56 03/13/23 03:53 Temperature 100.3 F 99.0 F 98.8 F Pulse Rate 106 H 103 H Respiratory Rate 19 22 H Blood Pressure 129/68 129/75 Pulse Oximetry 92 96 Oxygen Delivery Method Nasal Cannula Room Air Oxygen Flow Rate 2 03/13/23 08:00 Temperature 97.7 F Pulse Rate 104 H Respiratory Rate 22 H Blood Pressure 124/74 Pulse Oximetry 95 Oxygen Delivery Method Nasal Cannula Oxygen Flow Rate 1.5 BMI result Body Mass Index 30.5 Labs 03/12/23 04:55 03/12/23 04:55 Labs: Laboratory Results - last 48 hr 03/12/23 03/12/23 03/12/23 04:55 04:55 04:55 WBC 12.8 H RBC 3.48 L Hgb 7.6 L Hct 24.1 L MCV 69.3 L MCH 21.8 L MCHC 31.5 RDW 25.7 H Plt Count 275 MPV 10.2 Immature Gran % (Auto) Cancelled Neut % (Auto) Cancelled Lymph % (Auto) Cancelled [place] % (Auto) Cancelled Eos % (Auto) Cancelled Baso % (Auto) Cancelled Lymph # (Auto) Cancelled [place] # (Auto) Cancelled Eos # (Auto) Cancelled Baso # (Auto) Cancelled Abs Immat Gran (auto) Cancelled Absolute Neuts (auto) Cancelled Absolute Nucleated RBC 0.030 H Nucleated RBC % (auto) 0.2 Neutrophils % (Manual) 69 Band Neutrophils % 2 L Lymphocytes % (Manual) 21 Monocytes % (Manual) 5 Eosinophils % (Manual) 2 Metamyelocytes % 1 Abs Neuts (Manual) 9.1 H Lymphocytes # (Manual) 2.7 Monocytes # (Manual) 0.6 Eosinophils # (Manual) 0.3 Metamyelocytes # 0.1 Smudge Cells PRESENT Platelet Estimate NORMAL Large Platelets PRESENT Plt Morphology Comment NORMAL RBC Morphology NOTED Polychromasia 1+ (0-2) Macrocytosis 1+ (5-14) Ovalocytes 1+ (5-14) [place] Cells 1+ (0-2) Schistocytes 1+ (0-2) VBG pH 7.43 VBG pCO2 28 VBG pO2 32 VBG HCO3 19 L VBG O2 Saturation 50.0 VBG Base Excess -4.0 Sodium 138 Potassium 3.9 D Chloride 110 H Carbon Dioxide 19 L Anion Gap 13 BUN 32 H Creatinine 1.33 Estim Creat Clear Calc 84.1 Estimated GFR > 60 Random Glucose 91 Calcium 8.6 Phosphorus 3.2 Magnesium 2.0 Total Bilirubin 6.5 H AST 18 ALT 15 Alkaline Phosphatase 124 H Total Protein 6.6 Albumin 3.7 Imaging Radiology Impressions: ITS Impressions Chest X-Ray 03/02/23 20:15 IMPRESSION: Unremarkable chest examination. Abdomen/Pelvis CT 03/02/23 20:45 IMPRESSION: I do not appreciate any acute fracture or definitive solid organ injury. There is a small amount of nonspecific fluid seen in the periportal and pericaval region. Etiology of this is uncertain. Correlation with amylase and lipase levels would be recommended. I do not appreciate any contrast extravasation. Vascular injury would be considered much less likely in this location. If there is persistent clinical concern, follow-up abdominal imaging can be obtained to assure stability of this subtle finding over time Cervical Spine CT 03/02/23 20:45 IMPRESSION: Unremarkable examination. Chest CT 03/02/23 20:45 IMPRESSION: I do not appreciate any acute fracture or definitive solid organ injury. There is a small amount of nonspecific fluid seen in the periportal and pericaval region. Etiology of this is uncertain. Correlation with amylase and lipase levels would be recommended. I do not appreciate any contrast extravasation. Vascular injury would be considered much less likely in this location. If there is persistent clinical concern, follow-up abdominal imaging can be obtained to assure stability of this subtle finding over time Head CT 03/02/23 20:45 IMPRESSION: Unremarkable examination. Chest X-Ray 03/03/23 09:35 IMPRESSION: Satisfactory position of support line and tubes. Increasing attenuation in the lungs. Differential would include pneumonitis, pulmonary edema and contusion given history of trauma. Abdomen Ultrasound 03/12/23 10:01 IMPRESSION: 1. Diffusely echogenic liver without focal lesion. 2. Visualized gallbladder, CBD, right kidney and visualized pancreas is unremarkable. Medications Medications Current Medications Acetaminophen (Acetaminophen 325 Mg Tablet) 650 mg PO Q6H PRN PRN Reason: Pain, Mild (Pain Scale 1-3) Last Admin: 03/12/23 18:28 Dose: 650 mg Nafcillin Sodium 2 gm/ Sodium (Chloride) 100 mls @ 200 mls/hr IV Q6H [facility] Last Infusion: 03/13/23 04:52 Dose: Infused Lamotrigine (Lamotrigine 25 Mg Tablet) 50 mg PO BID [facility] Last Admin: 03/13/23 08:38 Dose: 50 mg Methadone HCl (Methadone Hcl 20 Mg/2 Ml Oral.Conc) 95 mg PO DAILY [facility] Last Admin: 03/12/23 08:18 Dose: 95 mg Naloxone HCl (Naloxone Hcl 0.4 Mg/Ml Vial) 0.2 mg IVPUSH Q2M PRN PRN Reason: Excessive sedation or RR < 8 Nicotine (Nicotine 7 Mg Patch.Td24) 7 mg TRANSDERMA DAILY [facility] Last Admin: 03/13/23 08:36 Dose: 7 mg Ondansetron HCl (Ondansetron Hcl 4 Mg/2 Ml Vial) 4 mg IVPUSH Q8H PRN PRN Reason: Nausea and Vomiting Last Admin: 03/13/23 08:34 Dose: 4 mg Rivaroxaban (Rivaroxaban 20 Mg Tablet) 20 mg PO DAILY [facility] Last Admin: 03/13/23 08:38 Dose: 20 mg Sodium Chloride (0.9 % Sodium Chloride Flush 3 Ml Syringe) 3 ml IVFLUSH QSHIFT [facility] Last Admin: 03/13/23 08:34 Dose: 3 ml Allergies Allergies Allergy/AdvReac Type Severity Reaction Status Date / Time No Known Allergies Allergy Verified 03/02/23 18:45 [No Known Allergies*] Assessment & Plan Assessment & Plan (1) Opioid use disorder, severe, dependence: Status: Acute Code(s): F11.20 - Opioid dependence, uncomplicated Assessment and Plan: methadone decreased to 50mg QD discussed with petrol tanker driver RN to check in later today Total time managing care of this patient today _25___ minutes.
--- NOTE | 2023-03-13 10:22 | MHC.CM.PN ---
Per ROUNDS discussion, Patient is actively withdrawing and not yet medically cleared at this time. DC plan is TBD pending Recovery Team. CM will follow.
[2023-03-13 11:31] VITALS: BP 137/87; PULSE 119; RESP 20; TEMP 37.2; O2SAT 97
--- NOTE | 2023-03-13 15:15 | MHC.RECOVRN ---
Met with pt in 445 to follow up after patient declined methadone dose this morning. Pt laying in bed, awake, engages in conversation, appears diaphoretic and weak. Pt reports having felt nauseous all day and was worried he would vomit after receiving his dose. Pt reports inability to eat anything all day, including soup his mom brought in. RN aware, discussed with Tami Luna APRN.
[2023-03-13 15:17] VITALS: BP 140/83; PULSE 117; RESP 15; TEMP 36.3; O2SAT 96
[2023-03-13] MEDS: methADONE HCl 20 MG/2 ML ORAL.CONC 50 MG PO (16:38)
[2023-03-13 19:32] VITALS: BP 120/78; PULSE 116; RESP 14; TEMP 36.9; O2SAT 95
[2023-03-13 23:24] VITALS: BP 130/73; PULSE 118; RESP 20; TEMP 37.8; O2SAT 94
[2023-03-13] MEDS: Acetaminophen 325 MG TABLET 650 MG PO (23:59)
[2023-03-14] MEDS: 0.9 % Sodium Chloride Flush 3 ML SYRINGE IVFLUSH (00:12)
[2023-03-14] MEDS: diphenhydrAMINE HCL 50 MG/ML VIAL IVPUSH (00:12)
[2023-03-14] MEDS: Nafcillin Sodium 2 GM in 0.9 % Sodium Chloride 100 ML IV (06:20)
--- NOTE | 2023-03-14 09:25 | PC.NURSE ---
per report night nurse sat down with pt and explained the risks of leaving AMA. Pt A&O x 4. pt still adamant on leaking AMA. this nurse went in and re educate pt of the same risks. provider came to bedside and pt still adamant on leaving AMA still. since coming onto the unit provider, care team, and RNs educated and re educated pt on the risks of leaving AMA and pt states I have made up my mind . AMA papers signed. last dose letter provided. security to escort pt.
--- NOTE | 2023-03-14 09:38 | PM.DS ---
DS: Providers Provider Date of Service: 03/14/23 Date of admission: 03/03/23 02:43 Primary care physician: Unknown Physician Consults: 03/03/23 01:11 Consult to Care Team Stat Comment: Reason for consultation: detox 03/03/23 06:48 Consult to Infectious Diseases Routine Consulting Provider: [facility] Infectious Disease Reason for consultation: sepsis, IVDU Has provider been notified: No 03/12/23 13:15 Addiction Medicine Routine Consulting Provider: Addiction Covering Reason for consultation: opiate DS: Diagnosis Discharge Diagnosis (1) Opioid use disorder, severe, dependence: Status: Acute (2) Acute respiratory failure: Status: Acute DS: Summary Hospital Course Hospital Course: from initial hpi: 32-year-old male with past medical history of MSSA bacteremia PE on Xarelto, history of endocarditis, tricuspid valve replacement, polysubstance abuse, hepatitis-C? who presented to the hospital initially with altered mental status and suspected drug use.? Patient was found outside by a bystander lying on the ground surrounded with drugs and a bottle of Xarelto.? history is obtained from ED note given patient's altered mentation,? I am unable to get much history from the patient. ? It appears that while in the ED patient was found to have a fever of 103.9, his other labs are also significant for tachycardia tachypnea, stable blood pressure Labs show WBC count of 11.6, hemoglobin of 11, medic of 34.3, creatinine of 1.68 from a baseline of 1.1, normal lactic acid, ?imaging including head CT, chest CT, abdomen pelvic CT, show no acute fracture or definite solid organ injury, small amount of nonspecific fluid seen in the periportal and pericaval region, ?has CT negative, cervical spine CT negative ?patient was placed on a cooling blanket, given suppository Tylenol 1 will be admitted for further management hospital course: patient was admitted for septic shock, metabolic encephalopathy, and acute hypoxic respiratory failure due to MSSA bacteremia in patient who uses IV opiates. patient required intubation and trasfer to ICU for pressors. he was treated with nafcillin, cultures became negative on 03/04/23, was weaned off pressors, extubated. TTE negative for vegetations. course complicated by acute liver injury due to sepsis in background of untreated HCV liver disease. lfts downtredning. for history of pe was continued on xarelto. for acute on chronic anemia of inflammation hgb decreased to about 7.5. for opiate dependence with withdrawal was given methadone and seen by addiction medicine. hypokalemia was repleted, hypophasphatemia was repleted. patient is still acutely ill, recommended for atleast 4 weeks iv abx at rehab facility. patient decided to leave AMA. he is able to demonstrate understanding of risks of doing so, including . course of augmentin will be sent to his pharmacy. Time Spent with Patient Time attestation: Total time managing care of this patient today ____ minutes. Discharge coordination time: Greater than 30 minutes Quality: Safe Use of Opioids Does Pt have an Active Cancer Diagnosis on the Problem List?: No Quality: Stroke Does the patient have a stroke diagnosis?: No Physical Exam Vital Signs: Vital Signs: Last Vital Signs Temp 100.1 F 03/13/23 23:24 Pulse 118 H 03/13/23 23:24 Resp 20 03/13/23 23:24 BP 130/73 03/13/23 23:24 Pulse Ox 94 03/13/23 23:24 O2 Del Method Nasal Cannula 03/13/23 23:24 O2 Flow Rate 2 03/13/23 23:24 FiO2 30 03/09/23 09:00 BMI result Body Mass Index 30.5 frail, ill appearing, diminished breath sounds, alert oriented times 3, DS: Data Data Completed and Pending Completed studies during hospitalization [Text1]: Procedures Detoxification Services for Substance Abuse Treatment (11/18/21) Labs on day of discharge: Preliminary micro results at discharge 03/12/23 09:40 Blood Culture - Preliminary Blood - Venous No growth after 24 hours. 03/12/23 09:40 Blood Culture - Preliminary Blood - Venous No growth after 24 hours. Discharge Plan Discharge Anticipated Discharge Date/Time: 03/14/23 09:34 Patient Disposition: Left Against Medical Advice Discharge Diagnosis: septic shock Referrals: Physician,Unknown J [Primary Care Provider] - 1 Week Discharge Medications: Continued Xarelto 20 mg Tablet 20 mg PO DAILY Qty: 30 0RF Rx Instructions: must administer with evening meal amoxicillin-pot clavulanate 875-125 mg tablet 1 tab PO Q12H Qty: 28 0RF Discharge Orders: Discharge Order (Routine); Ordered 03/14/23 Ordered By: Gaurav Jesin Diet: Advance to usual diet Activity on Discharge: As tolerated Care Plan Goals: recovery Health Concerns: ivda, sepsis Plan of Treatment: leaving AMA cannot treat properly, will send 2 weeks of augmentin to pharmacy Assessment: see above
--- NOTE | 2023-03-14 09:44 | MHC.CM.PN ---
DP: PT HAS LEFT AMA.
--- NOTE | 2023-03-14 10:28 | HO.PM.IMPN ---
Subjective Subjective Date of Service: 03/14/23 Interval History: less nauseous Physical Exam Vital Signs: Vital Signs: Last Vital Signs Temp 100.1 F 03/13/23 23:24 Pulse 118 H 03/13/23 23:24 Resp 20 03/13/23 23:24 BP 130/73 03/13/23 23:24 Pulse Ox 94 03/13/23 23:24 O2 Del Method Nasal Cannula 03/13/23 23:24 O2 Flow Rate 2 03/13/23 23:24 FiO2 30 03/09/23 09:00 BMI result Body Mass Index 30.5 frail, ill appearing, diminished breath sounds, alert oriented times 3, Objective Data Active Medications Acetaminophen (Acetaminophen 325 Mg Tablet) 650 mg PO Q6H PRN PRN Reason: Pain, Mild (Pain Scale 1-3) Last Admin: 03/13/23 23:59 Dose: 650 mg Documented By: SCOOTER Nafcillin Sodium 2 gm/ Sodium (Chloride) 100 mls @ 200 mls/hr IV Q6H COUNTS INCLUDE 234 BEDS AT THE [facility] Last Infusion: 03/14/23 07:39 Dose: 0 mls/hr Documented By: KEVIN Methadone HCl (Methadone Hcl 20 Mg/2 Ml Oral.Conc) 50 mg PO DAILY COUNTS INCLUDE 234 BEDS AT THE [facility] Last Admin: 03/13/23 10:02 Dose: Not Given Documented By: KEVIN Non-Admin Reason: pt refused. MD notified Naloxone HCl (Naloxone Hcl 0.4 Mg/Ml Vial) 0.2 mg IVPUSH Q2M PRN PRN Reason: Excessive sedation or RR < 8 Nicotine (Nicotine 7 Mg Patch.Td24) 7 mg TRANSDERMA DAILY COUNTS INCLUDE 234 BEDS AT THE [facility] Last Admin: 03/13/23 08:36 Dose: 7 mg Documented By: KEVIN Ondansetron HCl (Ondansetron Hcl 4 Mg/2 Ml Vial) 4 mg IVPUSH Q8H PRN PRN Reason: Nausea and Vomiting Last Admin: 03/13/23 08:34 Dose: 4 mg Documented By: KEVIN Rivaroxaban (Rivaroxaban 20 Mg Tablet) 20 mg PO DAILY COUNTS INCLUDE 234 BEDS AT THE [facility] Last Admin: 03/13/23 08:38 Dose: 20 mg Documented By: KEVIN Sodium Chloride (0.9 % Sodium Chloride Flush 3 Ml Syringe) 3 ml IVFLUSH QSHIFT COUNTS INCLUDE 234 BEDS AT THE [facility] Last Admin: 03/14/23 00:12 Dose: 3 ml Documented By: ALIDA Labs 03/12/23 04:55 03/12/23 04:55 Microbiology Microbiology Results: Microbiology 03/12/23 09:40 Blood Culture - Preliminary Blood - Venous No growth after 24 hours. 03/12/23 09:40 Blood Culture - Preliminary Blood - Venous No growth after 24 hours. Assessment and Plan (1) Acute respiratory failure: Status: Acute Plan 32M PMH IVDA, tricuspid endocarditis with MSSA, PE on xarelto, HCV, presented with lethargy. patient decompensated shortly after admission, required intubation, pressors, blood cultures growing MSSA. treated in ICU with nafcillin, extubated and weaned off pressors, downgraded 03/12/23. septic shock, acute metabolic encephalopathy, and acute hypoxic respiratory failure due to MSSA bacteremia in IVDA off pressors, extubated - wean o2 as tolerated, mental status back to baseline continue nafcillin, follow up cultures (negative from 03/04/23), TTE negative for vegetations acute liver injury due to hypotensiton in background of HCV untreated monitor LFTs history of PE continue xarelto acute anemia due to sepsis monitor opiate depednence with withdrawal methadone addiction medicine following full code reason for continued hospitalization:awaiting defervesence. needs plan for iv abx Time Spent With Patient Time: Total time managing care of this patient today ____ minutes. Quality Stroke Does the patient have a stroke diagnosis?: No VTE Prior VTE?: No VTE Risk Level:: Medical - moderate - high VTE Device Contraindication: Treatment Not Indicated VTE Drug Contraindication: N/A - Med Ordered
== END 2023-03-14 11:04 | disposition left against medical advice (07) | DRG 720 ==
LOC: HO.ED 03-03 02:38 → HO.EDOVER 03-03 02:47 → HO.S3 03-03 05:07 → HO.ICU 03-03 07:54 → HO.IMC 03-12 12:32
PROVIDERS: Internal Medicine; Internal Medicine Pulmonary Disease; Physician Assistant; Registered Nurse Community Health; Admitting Provider Internal Medicine; Emergency Provider Emergency Medicine; Visit Provider Internal Medicine
DX: A41.01 Sepsis due to Methicillin susceptible Staphylococcus aureus (principal); G93.41 Metabolic encephalopathy; K83.1 Obstruction of bile duct; F11.23 Opioid dependence with withdrawal; I50.810 Right heart failure, unspecified; F19.10 Other psychoactive substance abuse, uncomplicated; B19.20 Unspecified viral hepatitis C without hepatic coma; Z20.822 Contact with and (suspected) exposure to COVID-19; Z86.711 Personal history of pulmonary embolism; Z95.2 Presence of prosthetic heart valve; Z79.01 Long term (current) use of anticoagulants; Z79.899 Other long term (current) drug therapy
CPT/HCPCS: 36415; 70450; 71045; 71260; 72125; 74177; 76705; 80048; 80053; 80076; 80143; 80179; 80202; 80307; 81001; 82040; 82140; 82803; 83605; 83735; 84100; 84484; 85007; 85025; 85027; 85610; 85730; 87040; 87077; 87147; 87186; 87205; 87635; 93005; 93306; 94002; 94003; 94799; 99285; C1758; J0131; J0692; J0696; J1170; J1200; J1650; J1885; J1940; J2060; J2212; J2250; J2405; J3010; J3370; J3430; P9047; Q9967

== ENCOUNTER 2023-03-15 14:03 | Emergency (ER) | payer MEDICAID, SELFPAY ==
[2023-03-15 15:16] VITALS: BP 118/82; PULSE 131; RESP 18; TEMP 36.9; O2SAT 95; BMI 22.8
== END 2023-03-15 18:34 | disposition left against medical advice (07) ==
LOC: HO.ED 18:33
PROVIDERS: Emergency Provider Emergency Medicine
DX: R06.02 Shortness of breath (principal)
CPT/HCPCS: 99281

== ENCOUNTER 2023-03-16 16:20 | Inpatient (IN) | payer MEDICAID, SELFPAY ==
--- NOTE | ~2023-03-16 | XR_ITS ---
EXAMINATION: XR CHEST CLINICAL INFORMATION: Chest pain COMPARISON: 03/03/2023 TECHNIQUE: Frontal view of the chest was obtained. FINDINGS: Status post median sternotomy. Multiple wires overlie the chest. Low lung volumes. Cardiac mediastinal silhouette is stable. No dense consolidation, pleural effusion or pneumothorax. XR/XR chest 1V IMPRESSION: No acute cardiopulmonary process.
[2023-03-16 16:32] VITALS: BP 128/78; BP 129/84; PULSE 117; PULSE 120; RESP 20; TEMP 36.8; O2SAT 100; O2SAT 97; BMI 24.4
--- NOTE | 2023-03-16 16:35 | ECG_ITS ---
Test Reason : CHEST PAIN Blood Pressure : / mmHG Vent. Rate : 118 BPM Atrial Rate : 118 BPM P-R Int : 132 ms QRS Dur : 084 ms QT Int : 356 ms P-R-T Axes : 057 039 020 degrees QTc Int : 498 ms Sinus tachycardia T wave abnormality, consider anterior ischemia Abnormal ECG When compared with ECG of 12-MAR-2023 17:25, T wave inversion now evident in Anterior leads Referred By: Neva Araiza Electronically Signed By:ANGÉLICA VILLANUEVA MD
--- NOTE | 2023-03-16 16:59 | ED_ITS ---
HPI - Chest Pain General Chief Complaint: Chest Pain Stated Complaint: chest pressure sob Time Seen by Provider: 03/16/23 16:34 Source: patient Mode of arrival: ambulatory Limitations: no limitations History of Present Illness HPI narrative: 32-year-old male with past medical history of MSSA bacteremia, PE on Xarelto, tricuspid valve replacement, IV polysubstance abuse, hep C patient was seen recently in the emergency department for decreased mental status patient found to have fever patient was admitted for septic shock, metabolic encephalopathy and acute hypoxic respiratory failure due to MSSA bacteremia inpatient who uses IV opiates patient left against medical advice, patient come back again today hoping to place PICC line and get readmitted patient is complaining of chest pain for the past 2 days. Patient was sent home on Augmentin patient had negative TTE for vegetation patient received nafcillin while he was in the hospital. Related Data Previous Rx's Medication Instructions Recorded rivaroxaban 20 mg tablet (Xarelto) 20 mg PO DAILY #30 tabs 08/02/22 amoxicillin 875 mg-potassium 1 tab PO Q12H #28 tabs 03/14/23 clavulanate 125 mg tablet Allergies Allergy/AdvReac Type Severity Reaction Status Date / Time No Known Allergies Allergy Verified 03/02/23 18:45 [No Known Allergies*] Review of Systems Review of Systems: All other systems are reviewed and are negative Constitutional: Reports as per HPI and Reports no additional constitutional complaints Eyes: Reports as per HPI and Reports no additional eye complaints Reports system reviewed and no additional complaints, except as documented Cardiovascular: Reports as per HPI and Reports no additional cardiovascular complaints Respiratory: Reports as per HPI and Reports no additional respiratory complaints Gastrointestinal: Reports as per HPI and Reports no additional gastrointestinal complaints Genitourinary: Reports no additional female genitourinary complaints Musculoskeletal: Reports no additional musculoskeletal complaints Skin/Breast: Reports system reviewed and no additional complaints, except as docu Psychiatric: Reports no additional psychiatric complaints Endocrine: Reports no additional endocrine complaints Hematologic/Lymphatic: Reports no additional hematologic/lymphatic complaints Allergic/Immunologic: Reports no additional allergic/immunologic complaints Reports system reviewed and no additional complaints, except as documented and Reports Abnormal speech present [facility] Past Medical History Medical History Anasarca Bacteremia Bacteremia Endocarditis HCV (hepatitis C virus) Pulmonary embolism Right heart failure Steatosis, liver Tricuspid valve stenosis Surgical History History of tricuspid valve replacement with bioprosthetic valve Social History Social History Household Members: Unknown / Unable to assess Household Members Other:: none. homeless Housing: Unknown / Unable to assess Do you presently have visiting nurse or other home services: No Unable to assess alcohol history related to: Unknown Alcohol intake: former Patient Tobacco Use Status: Tobacco use Unknown Tobacco use type: Cigarette Cigarette Packs Per Day: 1 Cigarettes Per Day: 20.0 Years Smoked: 10 Smoked in Last 30 Days: Yes Second Hand Smoke Exposure: No Substance Use Type: Heroin Advance Directives: Yes Advance Directives on File: Yes Advance Directives Date on File: 04/16/21 service: No Current occupational status: unemployed Physical Exam Vital Signs: Vital Signs: Last Vital Signs Temp 100.2 F 03/16/23 17:58 Pulse 117 H 03/16/23 17:58 Resp 22 H 03/16/23 17:58 BP 108/81 03/16/23 17:58 Pulse Ox 97 03/16/23 16:32 O2 Del Method Room Air 03/16/23 16:32 BMI result Body Mass Index 24.4 Vital signs have been reviewed as appeared to be correct. Blood pressure normal. Heart rate elevated. Respiration rate normal. Temperature normal. Oxygen saturation normal. Appearance: Alert. Oriented X3. Appear cachectic. Head: Normal external exam. Normocephalic. Atraumatic. No Soria signs noted. No raccoon eyes noted Eyes: PERRLA. EOMI. Conjunctiva and sclera normal. Eyelids normal. ENT: TM's Normal. Pharynx normal. Uvula midline. Moist mucous membranes. No trismus noted. No drooling noted. No muffled voice noted. Neck: Normal inspection. Neck supple. FROM. No adenopathy. Thyroid Normal. No meningeal signs. No neck mass noted. CVS: Normal heart rate and rhythm. Heart sound normal. No murmurs noted. Pulses normal throughout. Respiratory: No respiratory distress. Painless inspiration. Breath sounds normal. No wheezes/rales/rhonchi noted. Chest nontender. No accessory muscle usage noted or decreased air movement noted. Abdomen: Soft and nontender. Bowel sounds normal in all 4 quadrants. No distention noted. No organomegaly noted. No visible injury noted. Back: No CVA tenderness. Full range of motion noted. Skin: Skin warm and dry. Normal skin color. Normal skin turgor. No rashes/lesions/lacerations noted. Extremities: No lower extremity edema. Extremities exhibit normal range of motion. Extremities nontender. Neuro: Oriented X 3. Cranial nerve exam: II-XII are grossly intact No motor deficit. No sensory deficit. Reflexes normal. Course Course Course Narrative: 32-year-old male came in with chest pain, patient has history of IV drug abuse and bacteremia patient was recently hospitalized and signed against medical adv ise before finishing the whole course of treatment, patient come back for readmission, meet criteria for SIRS but no severe sepsis or septic shock, hypokalemia will replete potassium. Medications Administered Discontinued Medications Generic Name Dose Route Start Last Admin Trade Name Freq PRN Reason Stop Dose Admin Nafcillin Sodium 2 gm/ Sodium 100 mls @ 200 mls/hr 03/16/23 17:06 03/16/23 18:01 Chloride IV 03/16/23 17:07 200 mls/hr ONCE ONE Administration Medical Decision Making Differential Diagnosis Differential Diagnoses: The differential diagnosis associated with the presentation includes (Electrolyte abnormalities, severe anemia, septic shock, bacteremia, dehydration.) Admission/Observation Consideration of admission/observation: Escalation of care including admis marshall/observation considered Consult Healthcare Provider Management of the patient was discussed with: Hospitalist (Dr. Lang) Lab Data MDM Lab Attestation statement: I reviewed the patient's lab results. 03/16/23 17:18 03/16/23 17:18 Labs: Lab Results 03/16/23 03/16/23 03/16/23 Range/Units 17:18 17:18 17:18 WBC 11.0 H (4.8-10.8) X10*3/uL RBC 4.07 L (4.60-5.80) X10*6/uL Hgb 9.7 L D (14.0-18.0) g/dl Hct 30.7 L D (42.0-52.0) % MCV 75.4 L D (80.0-98.0) fL MCH 23.8 L (27.0-33.0) pg MCHC 31.6 (31.0-36.0) g/dl RDW 31.5 H (11.0-16.0) % Plt Count 597 H D (160-400) X10*3/uL MPV 9.8 (9.4-12.4) fL Immature Gran % (Auto) 2.0 H (0.0-0.4) % Neut % (Auto) 60.7 (45-73) % Lymph % (Auto) 24.7 (20-40) % [place] % (Auto) 10.5 (2-11) % Eos % (Auto) 1.1 (0-4) % Baso % (Auto) 1.0 (0-2) % Lymph # (Auto) 2.7 (1.2-4.9) X10*3/uL [place] # (Auto) 1.2 (0.1-1.2) X10*3/uL Eos # (Auto) 0.1 (0.0-0.4) X10*3/uL Baso # (Auto) 0.1 (0.0-0.2) X10*3/uL Abs Immat Gran (auto) 0.22 H (0.00-0.03) X10*3/uL Absolute Neuts (auto) 6.7 (2.0-8.3) x10*3/uL Absolute Nucleated RBC 0.000 (0.0-0.012) X10*3/uL Nucleated RBC % (auto) 0.0 (0.0-0.2) /100WBC Sodium 139 (135-145) mmol/L Potassium 3.0 L D (3.3-5.1) mmol/L Chloride 106 (96-108) mmol/L Carbon Dioxide 20 L (22-29) mmol/L Anion Gap 16 (12-20) BUN 8 L (9-16) mg/dL Creatinine 0.74 (0.5-1.4) mg/dL Estim Creat Clear Calc 131.5 Estimated GFR > 60 Random Glucose 84 (60-115) mg/dL Lactic Acid (0.5-2.0) mmol/L Calcium 9.4 D (8.4-10.2) mg/dL Total Bilirubin 5.9 H (0.0-1.0) mg/dL Direct Bilirubin 3.5 H (0.0-0.5) mg/dL AST 19 (5-37) U/L ALT 13 (0-40) U/L Alkaline Phosphatase 154 H (39-117) U/L Troponin I High Sens 11.4 D (<3.5-35.0) ng/L B-Natriuretic Peptide (<100) pg/mL Total Protein 7.7 (6.5-8.0) g/dL Albumin 3.9 (3.5-5.0) g/dL Lipase 168 H (8-78) U/L 03/16/23 03/16/23 Range/Units 17:18 17:18 WBC (4.8-10.8) X10*3/uL RBC (4.60-5.80) X10*6/uL Hgb (14.0-18.0) g/dl Hct (42.0-52.0) % MCV (80.0-98.0) fL MCH (27.0-33.0) pg MCHC (31.0-36.0) g/dl RDW (11.0-16.0) % Plt Count (160-400) X10*3/uL MPV (9.4-12.4) fL Immature Gran % (Auto) (0.0-0.4) % Neut % (Auto) (45-73) % Lymph % (Auto) (20-40) % [place] % (Auto) (2-11) % Eos % (Auto) (0-4) % Baso % (Auto) (0-2) % Lymph # (Auto) (1.2-4.9) X10*3/uL [place] # (Auto) (0.1-1.2) X10*3/uL Eos # (Auto) (0.0-0.4) X10*3/uL Baso # (Auto) (0.0-0.2) X10*3/uL Abs Immat Gran (auto) (0.00-0.03) X10*3/uL Absolute Neuts (auto) (2.0-8.3) x10*3/uL Absolute Nucleated RBC (0.0-0.012) X10*3/uL Nucleated RBC % (auto) (0.0-0.2) /100WBC Sodium (135-145) mmol/L Potassium (3.3-5.1) mmol/L Chloride (96-108) mmol/L Carbon Dioxide (22-29) mmol/L Anion Gap (12-20) BUN (9-16) mg/dL Creatinine (0.5-1.4) mg/dL Estim Creat Clear Calc Estimated GFR Random Glucose (60-115) mg/dL Lactic Acid 1.7 (0.5-2.0) mmol/L Calcium (8.4-10.2) mg/dL Total Bilirubin (0.0-1.0) mg/dL Direct Bilirubin (0.0-0.5) mg/dL AST (5-37) U/L ALT (0-40) U/L Alkaline Phosphatase (39-117) U/L Troponin I High Sens (<3.5-35.0) ng/L B-Natriuretic Peptide 378 H (<100) pg/mL Total Protein (6.5-8.0) g/dL Albumin (3.5-5.0) g/dL Lipase (8-78) U/L Independent Interpretation I performed an independent interpretation of an: EKG ( sinus tachycardia at 118, normal axis deviation, normal intervals, diffuse T-wave inversion, not change from 03/04/2023) and Plain X-Ray (No acute cardiopulmonary disease.) Radiology Impression Discussion of test interpretation with radiology: I have reviewed the radiologist's reading. Discharge Plan Discharge Clinical Impression: Bacteremia Patient Disposition: Admitted As Inpatient
--- NOTE | 2023-03-16 17:12 | PC.NURSE ---
tech drawing labs, will get IV. pt on property assessment monitor- sinus tach.
--- NOTE | 2023-03-16 17:22 | MHC.EDTECH ---
PATIENT BLOOD CULTURE ,LACTIC ACID AND BLOOD DRAWN AND SENT TO LAB ,EKG DONE AND WAS READ BY PROVIDER .
[2023-03-16 17:26] LABS: MANUAL DIFF FLAG NO
[2023-03-16 17:28] LABS: Basophils Absolute Auto 0.1 X10*3/uL (0.0-0.2); Eosinophils Absolute Auto 0.1 X10*3/uL (0.0-0.4); Eosinophils Percent Auto 1.1 % (0-4); Hematocrit 30.7 % (42.0-52.0); Hemoglobin 9.7 g/dl (14.0-18.0); Imm Gran Abs Auto 0.22 X10*3/uL (0.00-0.03); Lymphocytes Absolute Auto 2.7 X10*3/uL (1.2-4.9); Lymphocytes Percent Auto 24.7 % (20-40); Mean Corpuscular HGB Conc 31.6 g/dl (31.0-36.0); Mean Corpuscular Hemoglobin 23.8 pg (27.0-33.0); Mean Corpuscular Volume 75.4 fL (80.0-98.0); Mean Platelet Volume 9.8 fL (9.4-12.4); Monocytes Absolute Auto 1.2 X10*3/uL (0.1-1.2); Monocytes Percent Auto 10.5 % (2-11); Neutrophils Absolute Auto 6.7 x10*3/uL (2.0-8.3); Neutrophils Percent Auto 60.7 % (45-73); Platelet Count 597 X10*3/uL (160-400); Red Blood Count 4.07 X10*6/uL (4.60-5.80); Red Cell Distribution Width 31.5 % (11.0-16.0)
[2023-03-16 17:40] LABS: Lactic Acid 1.7 mmol/L (0.5-2.0)
[2023-03-16 17:45] LABS: Alanine Aminotransferase 13 U/L (0-40); Albumin Level 3.9 g/dL (3.5-5.0); Alkaline Phosphatase 154 U/L (39-117); Anion Gap 16 (12-20); Aspartate Amino Transferase 19 U/L (5-37); Bilirubin Direct 3.5 mg/dL (0.0-0.5); Bilirubin Total 5.9 mg/dL (0.0-1.0); Blood Urea Nitrogen 8 mg/dL (9-16); Calcium 9.4 mg/dL (8.4-10.2); Carbon Dioxide 20 mmol/L (22-29); Chloride 106 mmol/L (96-108); Creatinine Clr Calc Pharmacy 131.5; Estimated Glomerular Filt Rate > 60; Glucose Random 84 mg/dL (60-115); Lipase 168 U/L (8-78); Sodium 139 mmol/L (135-145); Total Protein 7.7 g/dL (6.5-8.0)
[2023-03-16 17:50] LABS: B Type Natriuretic Peptide 378 pg/mL (<100)
[2023-03-16 17:53] LABS: Troponin-I High Sensitivity 11.4 ng/L (<3.5-35.0)
[2023-03-16 17:58] VITALS: BP 108/81; PULSE 117; RESP 22; TEMP 37.9
[2023-03-16] MEDS: Nafcillin Sodium 2 GM in 0.9 % Sodium Chloride 100 ML IV ×2 (18:01→22:44)
--- NOTE | 2023-03-16 18:03 | PC.NURSE ---
IV inserted, ABX hung per order. pt rectal temp 100.2, MD aware. pt sclera jaundice and abdomen distended and firm. awaiting urine from pt.
--- NOTE | 2023-03-16 18:06 | PC.NURSE ---
pt on methadone. pt gets take-home bottles from [facility]. pt reports that the prescribed does from [facility] is too much and that they half the dose at home.
[2023-03-16] MEDS: 0.9 % Sodium Chloride 1,000 ML 999 ML IV (18:20)
[2023-03-16 19:25] LABS: Appearance Urine Clear; Color Urine Dark Yellow; Glucose Urine UA Negative (Negative); Leukocyte Esterase Urine Small (1+) (Negative); Nitrite Urine Positive (Negative); PH 6.5 (5.0-9.0); Specific Gravity - Urine 1.015 (1.005-1.025); UMIC TRIGGER UACC YES; Urine Blood Small (1+) (Negative); Urine Ketones Negative (Negative); Urine Protein 100 (2+) mg/dL (Neg-Trace)
[2023-03-16 19:34] VITALS: BP 113/74; PULSE 115; RESP 20; TEMP 38.1; O2SAT 96
--- NOTE | 2023-03-16 19:45 | PM.IMHP ---
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 Patient was recently admitted for septic shock, metabolic encephalopathy and acute hypoxemic respiratory failure due to MSSA bacteremia requiring intubation and pressors but left AMA on 03/14. Noted multiple previous hospitalizations and multiple AMA discharges. Patient states he came as he was not feeling well. Complains of ongoing fevers and chills. States that he was not thinking right when he left AMA. Does not want to on the streets and wants proper treatment. Understands that he has bacteremia and is willing to stay in the hospital. Also complains of chest discomfort, shortness of breath. In the emergency department, patient was found to be septic and given IV nafcillin Review of Systems Constitutional: Constitutional: Reports chills, Reports fatigue and Reports fever(s) Cardiovascular: Cardiovascular: Reports chest pain, Reports chest pain with activity and Reports dyspnea on exertion Respiratory: Respiratory: Reports dyspnea on exertion Gastrointestinal: Gastrointestinal: Reports no additional gastrointestinal complaints Genitourinary: Genitourinary: Reports no additional male genitourinary complaints Endocrine: Endocrine: Reports fatigue [facility] Medical History Anasarca Bacteremia Bacteremia Endocarditis HCV (hepatitis C virus) Pulmonary embolism Right heart failure Steatosis, liver Tricuspid valve stenosis Pertinent family history: No family history of early CAD Surgical History History of tricuspid valve replacement with bioprosthetic valve Social History Household Members: Unknown / Unable to assess Household Members Other:: none. homeless Housing: Unknown / Unable to assess Do you presently have visiting nurse or other home services: No Unable to assess alcohol history related to: Unknown Alcohol intake: former Patient Tobacco Use Status: Tobacco use Unknown Tobacco use type: Cigarette Cigarette Packs Per Day: 1 Cigarettes Per Day: 20.0 Years Smoked: 10 Smoked in Last 30 Days: Yes Second Hand Smoke Exposure: No Substance Use Type: Heroin Advance Directives: Yes Advance Directives on File: Yes Advance Directives Date on File: 04/16/21 service: No Current occupational status: unemployed Meds Allergies Allergy/AdvReac Type Severity Reaction Status Date / Time No Known Allergies Allergy Verified 03/02/23 18:45 [No Known Allergies*] Active Medications: Current Medications Acetaminophen (Acetaminophen 325 Mg Tablet) 650 mg PO Q6H PRN PRN Reason: Pain, Mild (Pain Scale 1-3) Enoxaparin Sodium (Enoxaparin Sodium 80 Mg/0.8 Ml Syringe) 70 mg 1 mg/kg (70 mg) SUBCUT BID CRISTINA Melatonin (Melatonin 3 Mg Tablet) 6 mg PO BEDTIME PRN PRN Reason: Insomnia Ondansetron HCl (Ondansetron Hcl 4 Mg/2 Ml Vial) 4 mg IVPUSH Q8H PRN PRN Reason: Nausea and Vomiting Sodium Chloride (0.9 % Sodium Chloride Flush 3 Ml Syringe) 3 ml IVFLUSH QSHIFT CRISTINA Physical Exam Vital Signs and Narrative: Vital Signs: Last Vital Signs Temp 100.5 F H 03/16/23 19:34 Pulse 115 H 03/16/23 19:34 Resp 20 03/16/23 19:34 BP 113/74 03/16/23 19:34 Pulse Ox 96 03/16/23 19:34 O2 Del Method Room Air 03/16/23 19:34 BMI result Body Mass Index 24.4 Frail ill-appearing middle-aged male lying in bed in mild distress Tachycardic with regular rhythm, S1-S2 heard, murmur+ Diminished breath sounds Abdomen soft nontender, no guarding, no rigidity Patient is awake, alert and oriented to self, place, time and person ; no focal motor deficit Psych: Normal mood Results Labs 03/16/23 17:18 03/16/23 17:18 Labs: Laboratory Results - last 24 hr 03/16/23 03/16/23 03/16/23 17:18 17:18 17:18 MCV 75.4 L D MCH 23.8 L MCHC 31.6 RDW 31.5 H Plt Count 597 H D MPV 9.8 Immature Gran % (Auto) 2.0 H Neut % (Auto) 60.7 Lymph % (Auto) 24.7 [place] % (Auto) 10.5 Eos % (Auto) 1.1 Baso % (Auto) 1.0 Lymph # (Auto) 2.7 [place] # (Auto) 1.2 Eos # (Auto) 0.1 Baso # (Auto) 0.1 Abs Immat Gran (auto) 0.22 H Absolute Neuts (auto) 6.7 Absolute Nucleated RBC 0.000 Nucleated RBC % (auto) 0.0 Anion Gap 16 Estim Creat Clear Calc 131.5 Estimated GFR > 60 Random Glucose 84 Lactic Acid Calcium 9.4 D Total Bilirubin 5.9 H Direct Bilirubin 3.5 H AST 19 ALT 13 Alkaline Phosphatase 154 H Troponin I High Sens 11.4 D B-Natriuretic Peptide Total Protein 7.7 Albumin 3.9 Lipase 168 H Urine Color Urine Appearance Urine pH Ur Specific [place] Urine Protein Urine Glucose (UA) Urine Ketones Urine Blood Urine Nitrite Ur Leukocyte Esterase 03/16/23 03/16/23 03/16/23 17:18 17:18 18:50 MCV MCH MCHC RDW Plt Count MPV Immature Gran % (Auto) Neut % (Auto) Lymph % (Auto) [place] % (Auto) Eos % (Auto) Baso % (Auto) Lymph # (Auto) [place] # (Auto) Eos # (Auto) Baso # (Auto) Abs Immat Gran (auto) Absolute Neuts (auto) Absolute Nucleated RBC Nucleated RBC % (auto) Anion Gap Estim Creat Clear Calc Estimated GFR Random Glucose Lactic Acid 1.7 Calcium Total Bilirubin Direct Bilirubin AST ALT Alkaline Phosphatase Troponin I High Sens B-Natriuretic Peptide 378 H Total Protein Albumin Lipase Urine Color Dark Yellow Urine Appearance Clear Urine pH 6.5 Ur Specific [place] 1.015 Urine Protein 100 (2+) H Urine Glucose (UA) Negative Urine Ketones Negative Urine Blood Small (1+) H Urine Nitrite Positive H Ur Leukocyte Esterase Small (1+) H Imaging Radiologist's Impressions: Impressions Chest X-Ray 03/16/23 17:05 IMPRESSION: No acute cardiopulmonary process. 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 Patient was recently admitted for septic shock, metabolic encephalopathy and acute hypoxemic respiratory failure due to MSSA bacteremia requiring intubation and pressors but left AMA on 03/14. #. Sepsis due to MSSA bacteremia in a patient with IVDU. Continue nafcillin and follow up on cultures. TTE negative for vegetations during previous admission.. Resuscitated with IV crystalloids and lactic acid obtained #. Poly substance use disorder. Consulted Addiction Team. Monitor for withdrawals #. History of PE. Initiating therapeutic Lovenox #. Microcytic anemia. Iron panel pending #. Hypokalemia. Repleted Med rec pending DVT prophylaxis: Therapeutic Lovenox Full code Regular diet Admit as inpatient and will require two night minimum hospital stay for IV antibiotics Time Spent With Patient Time: Total time managing care of this patient today ____ minutes. Quality Stroke Does the patient have a stroke diagnosis?: No VTE Prior VTE?: No VTE Risk Level:: Medical - moderate - high VTE Device Contraindication: Treatment Not Indicated VTE Drug Contraindication: N/A - Med Ordered
[2023-03-16 19:56] LABS: Bacteria Urine None Seen (None Seen); Hyaline Casts Urine 0-2 /LPF (0-2); RBC Urine >20 /HPF (0-2); Squamous Epithelial Cell Urine 0-2 /HPF (0-2); UACC Culture Trigger YES
[2023-03-16 20:19] VITALS: BP 121/69; PULSE 132; RESP 22; O2SAT 97
[2023-03-16] MEDS: Potassium Chloride Packet 20 MEQ PACKET 40 MEQ PO (20:26)
[2023-03-16] MEDS: Potassium Chloride ER 20 MEQ TAB.ER.PRT PO (20:26)
[2023-03-16 20:30] LABS: Iron 64 mcg/dL (45-160); Percent Iron Saturation 31 % (15-50); Total Iron Binding Capacity 207 mcg/dL (228-428); Unsaturated Iron Binding 143 ug/dL
[2023-03-16 21:18] VITALS: TEMP 36.8
[2023-03-16 21:32] VITALS: BMI 25.9
[2023-03-16 21:40] VITALS: BP 121/75; PULSE 115; RESP 20; TEMP 37.3; O2SAT 95
[2023-03-16] MEDS: 0.9 % Sodium Chloride Flush 3 ML SYRINGE IVFLUSH (23:31)
[2023-03-17] MEDS: Nafcillin Sodium 2 GM in 0.9 % Sodium Chloride 100 ML IV ×6 (02:49→22:05)
[2023-03-17 02:55] VITALS: BP 145/95; PULSE 113; RESP 18; TEMP 36.9; O2SAT 94
--- NOTE | 2023-03-17 03:40 | PC.NURSE ---
the primary nurse was concerned about his tachycardia with heart rate 110's-130's, his exertional dyspnea, hypokalemia, his chest pain on the left side of his chest which is 7/10 and associated with deep breathing, and some of his cardiac risk factors like his cocaine use, history of artificial heart valve with associated pacing. Primary RN wanted this RN to ask MD if we could consider telemetry for patient. MD notified, patient order for telemetry.
[2023-03-17 07:26] VITALS: BP 137/88; PULSE 114; RESP 17; TEMP 36.6; O2SAT 95
[2023-03-17] MEDS: Potassium Chloride ER 20 MEQ TAB.ER.PRT 40 MEQ PO (08:23)
[2023-03-17] MEDS: 0.9 % Sodium Chloride Flush 3 ML SYRINGE IVFLUSH ×3 (08:24→21:04)
[2023-03-17] MEDS: methADONE HCl 20 MG/2 ML ORAL.CONC 30 MG PO (08:33)
--- NOTE | 2023-03-17 08:53 | PHA.MEDREC ---
Pharmacy Consult ? Medication Reconciliation Pharmacy has completed the medication reconciliation. Spoke to patient and he states he is only on Xarelto. When asked about furosemide he says he doesn't take that any more. I asked about the antibiotic he was prescribed at his last discharge and he states he didn't finish it yet but he took 2-3 days worth.
--- NOTE | 2023-03-17 09:13 | HO.PM.IMPN ---
Subjective Subjective Date of Service: 03/17/23 Interval History: withdrawal Physical Exam Vital Signs: Vital Signs: Last Vital Signs Temp 97.9 F 03/17/23 07:26 Pulse 114 H 03/17/23 07:26 Resp 17 03/17/23 07:26 BP 137/88 03/17/23 07:26 Pulse Ox 95 03/17/23 07:26 O2 Del Method Room Air 03/17/23 07:26 BMI result Body Mass Index 25.9 alert, jaundiced, ill appearing, frail Objective Data Active Medications Acetaminophen (Acetaminophen 325 Mg Tablet) 650 mg PO Q6H PRN PRN Reason: Pain, Mild (Pain Scale 1-3) Nafcillin Sodium 2 gm/ Sodium (Chloride) 100 mls @ 200 mls/hr IV Q4H [facility] Last Infusion: 03/17/23 07:27 Dose: 0 mls/hr Documented By: MARGARITA Methadone HCl (Methadone Hcl 20 Mg/2 Ml Oral.Conc) 30 mg PO DAILY [facility] Last Admin: 03/17/23 08:33 Dose: 30 mg Documented By: MARGARITA Pharmacy Consult (Consult Rx Perform Med Rec) 1 each MISCELLANE ONCE PRN PRN Reason: Consult order Rivaroxaban (Rivaroxaban 20 Mg Tablet) 20 mg PO DAILY@1700 [facility] Sodium Chloride (0.9 % Sodium Chloride Flush 3 Ml Syringe) 3 ml IVFLUSH QSHIFT [facility] Last Admin: 03/17/23 08:24 Dose: 3 ml Documented By: MARGARITA Labs 03/16/23 17:18 03/16/23 17:18 Labs: Laboratory Results - last 24 hr 03/16/23 03/16/23 03/16/23 17:18 17:18 17:18 MCV 75.4 L D MCH 23.8 L MCHC 31.6 RDW 31.5 H Plt Count 597 H D MPV 9.8 Immature Gran % (Auto) 2.0 H Neut % (Auto) 60.7 Lymph % (Auto) 24.7 [place] % (Auto) 10.5 Eos % (Auto) 1.1 Baso % (Auto) 1.0 Lymph # (Auto) 2.7 [place] # (Auto) 1.2 Eos # (Auto) 0.1 Baso # (Auto) 0.1 Abs Immat Gran (auto) 0.22 H Absolute Neuts (auto) 6.7 Absolute Nucleated RBC 0.000 Nucleated RBC % (auto) 0.0 Anion Gap 16 Estim Creat Clear Calc 131.5 Estimated GFR > 60 Random Glucose 84 Lactic Acid Calcium 9.4 D Iron 64 TIBC 207 L % Saturation 31 Unsat Iron Binding 143 Total Bilirubin 5.9 H Direct Bilirubin 3.5 H AST 19 ALT 13 Alkaline Phosphatase 154 H Troponin I High Sens 11.4 D B-Natriuretic Peptide Total Protein 7.7 Albumin 3.9 Lipase 168 H Urine Color Urine Appearance Urine pH Ur Specific [place] Urine Protein Urine Glucose (UA) Urine Ketones Urine Blood Urine Nitrite Ur Leukocyte Esterase Urine RBC Urine WBC Ur Squamous Epith Cells Urine Bacteria Hyaline Casts 03/16/23 03/16/23 03/16/23 17:18 17:18 18:50 MCV MCH MCHC RDW Plt Count MPV Immature Gran % (Auto) Neut % (Auto) Lymph % (Auto) [place] % (Auto) Eos % (Auto) Baso % (Auto) Lymph # (Auto) [place] # (Auto) Eos # (Auto) Baso # (Auto) Abs Immat Gran (auto) Absolute Neuts (auto) Absolute Nucleated RBC Nucleated RBC % (auto) Anion Gap Estim Creat Clear Calc Estimated GFR Random Glucose Lactic Acid 1.7 Calcium Iron TIBC % Saturation Unsat Iron Binding Total Bilirubin Direct Bilirubin AST ALT Alkaline Phosphatase Troponin I High Sens B-Natriuretic Peptide 378 H Total Protein Albumin Lipase Urine Color Dark Yellow Urine Appearance Clear Urine pH 6.5 Ur Specific [place] 1.015 Urine Protein 100 (2+) H Urine Glucose (UA) Negative Urine Ketones Negative Urine Blood Small (1+) H Urine Nitrite Positive H Ur Leukocyte Esterase Small (1+) H Urine RBC >20 H Urine WBC 6-10 H Ur Squamous Epith Cells 0-2 Urine Bacteria None Seen Hyaline Casts 0-2 Assessment and Plan (1) Staphylococcus aureus bacteremia with sepsis: Status: Acute Plan 32M PMH IVDA, tricuspid endocarditis with MSSA, PE on xarelto, HCV, recently admitted 03/03/23 for sepsis, required intubation, pressors, blood cultures grew MSSA. treated in ICU with nafcillin, extubated and weaned off pressors, downgraded 03/12/23, left AMA 03/14/23, now returning with fevers 03/16/23. fevers due to MSSA bacteremia in IVDA continue nafcillin, follow up cultures recent acute liver injury due to hypotensiton in background of HCV untreated improving history of PE continue xarelto acute anemia due to sepsis improving opiate depednence with withdrawal methadone addiction medicine following full code reason for continued hospitalization:iv abx for bacteremia, awaiting, clearance, picc, placement Time Spent With Patient Time: Total time managing care of this patient today ____ minutes. Quality Stroke Does the patient have a stroke diagnosis?: No VTE Prior VTE?: No VTE Risk Level:: Medical - moderate - high VTE Device Contraindication: Treatment Not Indicated VTE Drug Contraindication: N/A - Med Ordered
--- NOTE | 2023-03-17 12:17 | MHC.CM.PN ---
PT REPORTS HE WAS STAYING WITH HIS BROTHER BUT WILL NOT BE ABLE TO RETURN HE REPORTS HE WILL BE HOMELESS ONCE HIS MEDICAL TREATMENT IS COMPLETE HE REPORTS BEING INTERESTED IN BOTH LONG TERM AND SA PROGRAM REFERRALS PT HAS NO PCP BUT USES [facility] PRN HE HAS A HCP ON FILE HE IS ACTIVE WITH [facility] PT IS AWARE HE WILL NEED STR FOR IV ABX HE WAS ENCOURAGED TO MEET [facility] THE RECOVERY TEAM HERE AND THE SW AT THE STR TO DISCUSS APPROPRIATE REFERRALS HE WILL NEED BLS TRANSPORT REFERRALS MADE TO [facility]
[2023-03-17] MEDS: Nicotine 21 MG PATCH.TD24 TRANSDERMA (13:06)
--- NOTE | 2023-03-17 14:08 | MHC.CM.PN ---
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
--- NOTE | 2023-03-17 14:46 | HO.ADDICTPRO ---
Subjective Subjective Date of Service: 03/17/23 Reason For Visit: Fever Interim History: Patient seen in follow up Left over the weekend prior to completing treatment Returned today and readmitted. Discussed patient's rationale for leaving and he had none, he acknowledged that what he believed he was capable of doing physically and what he was actually capable of were not the same thing. He has no place to live and he verbalized not wanting to put his mother through this stress any longer. He denies using any substances while out of the hospital. Received methadone 30mg today and would like to stay at this dose. He states that his goal is to remain in the hospital until placement is found to complete IV ABX. Denies any withdrawal sx and appeared comfortable. Review of Systems Constitutional: Reports as per HPI and Reports weakness Reports weakness Mental Status Exam Mental Status Exam Patient Appearance: Appropriate Patient Orientation: Person, Place, Time and Situation Level of Consciousness: Awake, Appropriate and Alert Patient Behavior: Appropriate, Talkative and Cooperative Affect Description: Appropriate Judgement: Fair Diagnostics Vital Signs (24Hr): Vital Signs - 24 hr 03/16/23 16:32 03/16/23 17:58 03/16/23 19:34 Temperature 98.3 F 100.2 F 100.5 F H Pulse Rate 117 H 117 H 115 H Respiratory Rate 20 22 H 20 Blood Pressure 129/84 108/81 113/74 Pulse Oximetry 97 96 Oxygen Delivery Method Room Air Room Air 03/16/23 20:19 03/16/23 21:18 03/16/23 21:40 Temperature 98.3 F 99.1 F Pulse Rate 132 H 115 H Respiratory Rate 22 H 20 Blood Pressure 121/69 121/75 Pulse Oximetry 97 95 Oxygen Delivery Method Room Air Room Air 03/17/23 02:55 03/17/23 07:26 Temperature 98.5 F 97.9 F Pulse Rate 113 H 114 H Respiratory Rate 18 17 Blood Pressure 145/95 H 137/88 Pulse Oximetry 94 95 Oxygen Delivery Method Room Air Room Air BMI result Body Mass Index 25.9 Labs 03/16/23 17:18 03/16/23 17:18 Labs: Laboratory Results - last 48 hr 03/16/23 03/16/23 03/16/23 17:18 17:18 17:18 WBC 11.0 H RBC 4.07 L Hgb 9.7 L D Hct 30.7 L D MCV 75.4 L D MCH 23.8 L MCHC 31.6 RDW 31.5 H Plt Count 597 H D MPV 9.8 Immature Gran % (Auto) 2.0 H Neut % (Auto) 60.7 Lymph % (Auto) 24.7 [place] % (Auto) 10.5 Eos % (Auto) 1.1 Baso % (Auto) 1.0 Lymph # (Auto) 2.7 [place] # (Auto) 1.2 Eos # (Auto) 0.1 Baso # (Auto) 0.1 Abs Immat Gran (auto) 0.22 H Absolute Neuts (auto) 6.7 Absolute Nucleated RBC 0.000 Nucleated RBC % (auto) 0.0 Sodium 139 Potassium 3.0 L D Chloride 106 Carbon Dioxide 20 L Anion Gap 16 BUN 8 L Creatinine 0.74 Estim Creat Clear Calc 131.5 Estimated GFR > 60 Random Glucose 84 Lactic Acid Calcium 9.4 D Iron 64 TIBC 207 L % Saturation 31 Unsat Iron Binding 143 Total Bilirubin 5.9 H Direct Bilirubin 3.5 H AST 19 ALT 13 Alkaline Phosphatase 154 H Troponin I High Sens 11.4 D B-Natriuretic Peptide Total Protein 7.7 Albumin 3.9 Lipase 168 H Urine Color Urine Appearance Urine pH Ur Specific [place] Urine Protein Urine Glucose (UA) Urine Ketones Urine Blood Urine Nitrite Ur Leukocyte Esterase Urine RBC Urine WBC Ur Squamous Epith Cells Urine Bacteria Hyaline Casts 03/16/23 03/16/23 03/16/23 17:18 17:18 18:50 WBC RBC Hgb Hct MCV MCH MCHC RDW Plt Count MPV Immature Gran % (Auto) Neut % (Auto) Lymph % (Auto) [place] % (Auto) Eos % (Auto) Baso % (Auto) Lymph # (Auto) [place] # (Auto) Eos # (Auto) Baso # (Auto) Abs Immat Gran (auto) Absolute Neuts (auto) Absolute Nucleated RBC Nucleated RBC % (auto) Sodium Potassium Chloride Carbon Dioxide Anion Gap BUN Creatinine Estim Creat Clear Calc Estimated GFR Random Glucose Lactic Acid 1.7 Calcium Iron TIBC % Saturation Unsat Iron Binding Total Bilirubin Direct Bilirubin AST ALT Alkaline Phosphatase Troponin I High Sens B-Natriuretic Peptide 378 H Total Protein Albumin Lipase Urine Color Dark Yellow Urine Appearance Clear Urine pH 6.5 Ur Specific [place] 1.015 Urine Protein 100 (2+) H Urine Glucose (UA) Negative Urine Ketones Negative Urine Blood Small (1+) H Urine Nitrite Positive H Ur Leukocyte Esterase Small (1+) H Urine RBC >20 H Urine WBC 6-10 H Ur Squamous Epith Cells 0-2 Urine Bacteria None Seen Hyaline Casts 0-2 Imaging Radiology Impressions: ITS Impressions Chest X-Ray 03/16/23 17:05 IMPRESSION: No acute cardiopulmonary process. Medications Medications Current Medications Acetaminophen (Acetaminophen 325 Mg Tablet) 650 mg PO Q6H PRN PRN Reason: Pain, Mild (Pain Scale 1-3) Nafcillin Sodium 2 gm/ Sodium (Chloride) 100 mls @ 200 mls/hr IV Q4H [facility] Last Infusion: 03/17/23 14:10 Dose: Infused Methadone HCl (Methadone Hcl 20 Mg/2 Ml Oral.Conc) 30 mg PO DAILY [facility] Last Admin: 03/17/23 08:33 Dose: 30 mg Nicotine (Nicotine 21 Mg Patch.Td24) 21 mg TRANSDERMA DAILY [facility] Last Admin: 03/17/23 13:06 Dose: 21 mg Pharmacy Consult (Consult Rx Perform Med Rec) 1 each MISCELLANE ONCE PRN PRN Reason: Consult order Rivaroxaban (Rivaroxaban 20 Mg Tablet) 20 mg PO DAILY@1700 [facility] Sodium Chloride (0.9 % Sodium Chloride Flush 3 Ml Syringe) 3 ml IVFLUSH QSHIFT [facility] Last Admin: 03/17/23 13:41 Dose: 3 ml Allergies Allergies Allergy/AdvReac Type Severity Reaction Status Date / Time No Known Allergies Allergy Verified 03/02/23 18:45 [No Known Allergies*] Assessment & Plan Assessment & Plan (1) Opioid use disorder, severe, dependence: Status: Acute Code(s): F11.20 - Opioid dependence, uncomplicated Assessment and Plan: continue methadone 30mg daily will continue to follow Total time managing care of this patient today ___35_ minutes.
[2023-03-17 15:12] VITALS: BP 116/79; PULSE 115; RESP 20; TEMP 37.4; O2SAT 96
[2023-03-17] MEDS: Rivaroxaban 20 MG TABLET PO (16:51)
[2023-03-17 19:20] VITALS: BP 130/82; PULSE 125; RESP 18; TEMP 36.4; O2SAT 100
[2023-03-17] MEDS: ondansetron HCL 4 MG/2 ML VIAL IVPUSH (21:04)
[2023-03-17] MEDS: Acetaminophen 325 MG TABLET 650 MG PO (21:04)
[2023-03-17] MEDS: Melatonin 3 MG TABLET 6 MG PO (21:04)
[2023-03-18] MEDS: Nafcillin Sodium 2 GM in 0.9 % Sodium Chloride 100 ML IV ×5 (02:35→21:00)
--- NOTE | 2023-03-18 04:29 | PC.NURSE ---
Pt refused to have leads checked or replaced on telemonitor. Med/Tele notified.
--- NOTE | 2023-03-18 06:35 | PC.NURSE ---
Pt refused 6am IV Nefcillin, was educated on why he's getting abx and it's scheduling, still refused abx.
[2023-03-18 07:40] VITALS: BP 125/81; PULSE 105; RESP 18; TEMP 36.8; O2SAT 94
[2023-03-18] MEDS: methADONE HCl 20 MG/2 ML ORAL.CONC 30 MG PO (08:21)
[2023-03-18] MEDS: Nicotine 21 MG PATCH.TD24 TRANSDERMA (08:21)
[2023-03-18] MEDS: 0.9 % Sodium Chloride Flush 3 ML SYRINGE IVFLUSH ×3 (08:21→20:57)
[2023-03-18 08:44] LABS: Hematocrit 29.7 % (42.0-52.0); Hemoglobin 9.2 g/dl (14.0-18.0); Mean Corpuscular Hemoglobin 24.1 pg (27.0-33.0); Mean Platelet Volume 9.6 fL (9.4-12.4); Platelet Count 536 X10*3/uL (160-400); Red Blood Count 3.81 X10*6/uL (4.60-5.80); Red Cell Distribution Width 34.2 % (11.0-16.0); White Blood Count 9.4 X10*3/uL (4.8-10.8)
[2023-03-18 09:03] LABS: Anion Gap 13 (12-20); Blood Urea Nitrogen 10 mg/dL (9-16); Calcium 8.8 mg/dL (8.4-10.2); Carbon Dioxide 19 mmol/L (22-29); Chloride 110 mmol/L (96-108); Estimated Glomerular Filt Rate > 60; Glucose Fasting 99 mg/dL (60-99); Potassium 3.5 mmol/L (3.3-5.1); Sodium 138 mmol/L (135-145)
--- NOTE | 2023-03-18 11:23 | P.PNIM_ITS ---
Subjective Subjective Date of Service: 03/18/23 Interval History: Seen and evaluated this morning Feels better no withdrawal symptoms waiting Cultures and PICC Review of Systems Review of Systems: Yes all other systems are reviewed and are negative Physical Exam Vital Signs: Vital Signs: Last Vital Signs Temp 98.2 F 03/18/23 07:40 Pulse 105 H 03/18/23 07:40 Resp 18 03/18/23 07:40 BP 125/81 03/18/23 07:40 Pulse Ox 94 03/18/23 07:40 O2 Del Method Room Air 03/18/23 07:40 BMI result Body Mass Index 25.9 Const: Other: Constitutional : Awake, interactive, not in distress Neck : Normal inspection, Supple Cardiovascular : RRR, no JVP, no lower extremity edema Respiratory : good bilateral air entry, no crackles, wheezes or rhonchi Gastrointestinal: soft, lax, Normal bowel sounds, Non tender Skin : Warm, Dry Neurological : Alert & oriented x3, No focal deficit Objective Data Active Medications Acetaminophen (Acetaminophen 325 Mg Tablet) 650 mg PO Q6H PRN PRN Reason: Pain, Mild (Pain Scale 1-3) Last Admin: 03/17/23 21:04 Dose: 650 mg Documented By: HILARY Nafcillin Sodium 2 gm/ Sodium (Chloride) 100 mls @ 200 mls/hr IV Q4H [facility] Last Infusion: 03/18/23 09:59 Dose: 0 mls/hr Documented By: PEYTON Melatonin (Melatonin 3 Mg Tablet) 6 mg PO BEDTIME PRN PRN Reason: Insomnia Last Admin: 03/17/23 21:04 Dose: 6 mg Documented By: HILARY Methadone HCl (Methadone Hcl 20 Mg/2 Ml Oral.Conc) 30 mg PO DAILY [facility] Last Admin: 03/18/23 08:21 Dose: 30 mg Documented By: PEYTON Nicotine (Nicotine 21 Mg Patch.Td24) 21 mg TRANSDERMA DAILY [facility] Last Admin: 03/18/23 08:21 Dose: 21 mg Documented By: PEYTON Ondansetron HCl (Ondansetron Hcl 4 Mg/2 Ml Vial) 4 mg IVPUSH Q6H PRN PRN Reason: Nausea and Vomiting Last Admin: 03/17/23 21:04 Dose: 4 mg Documented By: HILARY Pharmacy Consult (Consult Rx Perform Med Rec) 1 each MISCELLANE ONCE PRN PRN Reason: Consult order Rivaroxaban (Rivaroxaban 20 Mg Tablet) 20 mg PO DAILY@1700 [facility] Last Admin: 03/17/23 16:51 Dose: 20 mg Documented By: MARGARITA Sodium Chloride (0.9 % Sodium Chloride Flush 3 Ml Syringe) 3 ml IVFLUSH QSHIFT [facility] Last Admin: 03/18/23 08:21 Dose: 3 ml Documented By: PEYTON Labs 03/18/23 08:29 03/18/23 08:29 Labs: Laboratory Results - last 24 hr 03/18/23 03/18/23 08:29 08:29 MCV 78.0 L MCH 24.1 L MCHC 31.0 RDW 34.2 H Plt Count 536 H MPV 9.6 Absolute Nucleated RBC 0.000 Nucleated RBC % (auto) 0.0 Anion Gap 13 Estim Creat Clear Calc 128.0 Estimated GFR > 60 Fasting Glucose 99 Calcium 8.8 D Microbiology Microbiology Results: Microbiology 03/16/23 Unknown Urine Culture - Final Urine clean catch - Urine harley top No growth. 03/16/23 17:19 Blood Culture - Preliminary Blood - Venous No growth after 24 hours. 03/16/23 12:51 Blood Culture - Preliminary Blood - Venous No growth after 24 hours. 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 Patient was recently admitted for septic shock, metabolic encephalopathy and acute hypoxemic respiratory failure due to MSSA bacteremia requiring intubation and pressors but left AMA on 03/14. # Sepsis due to MSSA bacteremia in a patient with IVDU. Continue nafcillin and follow up on cultures. TTE negative for vegetations during previous admission DC IV crystalloids ID following # Poly substance use disorder. Consulted Addiction Team. Monitor for withdrawals Continue MEthadon # recent acute liver injury due to hypotensiton in background of HCV untreated improving # History of PE. continue Xarelto #. Microcytic anemia. Iron panel fair with low TIBC #. Hypokalemia. Repleted DVT prophylaxis: Xarelto patient needs overnight inpatient stay for Pending final blood cultures on IV antibiotics and for placement Time Spent With Patient Time: Total time managing care of this patient today ____ minutes. Quality Stroke Does the patient have a stroke diagnosis?: No VTE Prior VTE?: No VTE Risk Level:: Medical - moderate - high VTE Device Contraindication: Treatment Not Indicated VTE Drug Contraindication: N/A - Med Ordered
--- NOTE | 2023-03-18 12:17 | MHC.RECOVRN ---
This inspector automatic typewriter met with patient. Patient was sitting in recliner awake and resting. Patient reports feeling better after re presenting to the hospital. Patient reports focused on recovery. Patient states through the night did not sleep well, restless, chills. This inspector automatic typewriter to review findings with Provider. Patient interested in increase as methadone is not lasting through the night .
[2023-03-18] MEDS: methADONE HCl 20 MG/2 ML ORAL.CONC 5 MG PO (13:52)
--- NOTE | 2023-03-18 14:35 | MHC.CM.PN ---
per rounds pt will not get a picc till he has a bed at [facility]
[2023-03-18] MEDS: ondansetron HCL 4 MG/2 ML VIAL IVPUSH (15:17)
[2023-03-18 16:00] VITALS: BP 127/65; PULSE 100; RESP 19; TEMP 36.3; O2SAT 96
[2023-03-18] MEDS: Rivaroxaban 20 MG TABLET PO (17:30)
[2023-03-18 20:00] VITALS: BP 127/65; PULSE 97; RESP 18; TEMP 36.9; O2SAT 94
[2023-03-19] MEDS: Melatonin 3 MG TABLET 6 MG PO (02:34)
[2023-03-19 03:53] VITALS: BP 107/58; PULSE 100; RESP 18; TEMP 36.3; O2SAT 93
--- NOTE | 2023-03-19 04:28 | PC.NURSE ---
Pt refused head to toe assessment and CRISTINA 02:00 IV Nafcillin from this RN. This RN educated the pt on the importance of the medication, but still refused the IV antibiotic. MD Mace aware of the situation.
[2023-03-19] MEDS: Nafcillin Sodium 2 GM in 0.9 % Sodium Chloride 100 ML IV ×5 (06:17→21:49)
[2023-03-19 08:00] VITALS: BP 129/82; PULSE 108; RESP 18; TEMP 37; O2SAT 96
[2023-03-19] MEDS: Nicotine 21 MG PATCH.TD24 TRANSDERMA (09:17)
[2023-03-19] MEDS: 0.9 % Sodium Chloride Flush 3 ML SYRINGE IVFLUSH ×3 (09:18→19:43)
[2023-03-19] MEDS: methADONE HCl 20 MG/2 ML ORAL.CONC 30 MG PO (09:18)
[2023-03-19] MEDS: ondansetron HCL 4 MG/2 ML VIAL IVPUSH (09:18)
--- NOTE | 2023-03-19 11:08 | MHC.CM.PN ---
Addendum entered by Maribel Tidwell 03/20/23 08:24: [facility] HAS INDICATED THEY WILL HAVE A BED FOR PT ON 03/20/23 CM SPOKE TO PHILLIP WALDROP AT [facility] WHO WILL ARRANGE FOR PTS GUEST DOSING AT [facility] IN [place] FOR [facility] [facility] [place] [facility] OBTAINED AND NOW IN [facility] PT HOPES TO DC EARLY POSSIBLE DCP: DC THURSDAY TO [facility] VIA BLS Original Note: PER MD, PT IS READY TO DC TO STR FOR IV ABX ONCE A BED IS SECURED PT IS ON METHADONE, THEREFORE, ONLY [facility] AND [facility] WERE FOLLOWING [facility] HAS DECLINED REFERRAL UPDATES SENT TO [facility] VIA [employer] MESSAGES LEFT FOR [facility] LIAISON VIA [employer] AND T/C
--- NOTE | 2023-03-19 12:36 | HO.PM.IMPN ---
Subjective Subjective Date of Service: 03/19/23 Interval History: Seen and evaluated this morning Feels better and waiting placement no withdrawal symptoms negative repeat blood Cultures waiting for PICC Review of Systems Review of Systems: Yes all other systems are reviewed and are negative Physical Exam Vital Signs: Vital Signs: Last Vital Signs Temp 98.6 F 03/19/23 08:00 Pulse 108 H 03/19/23 08:00 Resp 18 03/19/23 08:00 BP 129/82 03/19/23 08:00 Pulse Ox 96 03/19/23 08:00 O2 Del Method Room Air 03/19/23 08:00 BMI result Body Mass Index 25.9 Const: Other: Constitutional : Awake, interactive, not in distress Neck : Normal inspection, Supple Cardiovascular : RRR, no JVP, no lower extremity edema Respiratory : good bilateral air entry, no crackles, wheezes or rhonchi Gastrointestinal: soft, lax, Normal bowel sounds, Non tender Skin : Warm, Dry Neurological : Alert & oriented x3, No focal deficit Objective Data Active Medications Acetaminophen (Acetaminophen 325 Mg Tablet) 650 mg PO Q6H PRN PRN Reason: Pain, Mild (Pain Scale 1-3) Last Admin: 03/17/23 21:04 Dose: 650 mg Documented By: HILARY Nafcillin Sodium 2 gm/ Sodium (Chloride) 100 mls @ 200 mls/hr IV Q4H [facility] Last Infusion: 03/19/23 10:27 Dose: 0 mls/hr Documented By: PEYTON Melatonin (Melatonin 3 Mg Tablet) 6 mg PO BEDTIME PRN PRN Reason: Insomnia Last Admin: 03/19/23 02:34 Dose: 6 mg Documented By: DAVE Methadone HCl (Methadone Hcl 20 Mg/2 Ml Oral.Conc) 30 mg PO DAILY [facility] Last Admin: 03/19/23 09:18 Dose: 30 mg Documented By: PEYTON Nicotine (Nicotine 21 Mg Patch.Td24) 21 mg TRANSDERMA DAILY [facility] Last Admin: 03/19/23 09:17 Dose: 21 mg Documented By: PEYTON Ondansetron HCl (Ondansetron Hcl 4 Mg/2 Ml Vial) 4 mg IVPUSH Q6H PRN PRN Reason: Nausea and Vomiting Last Admin: 03/19/23 09:18 Dose: 4 mg Documented By: PEYTON Pharmacy Consult (Consult Rx Perform Med Rec) 1 each MISCELLANE ONCE PRN PRN Reason: Consult order Rivaroxaban (Rivaroxaban 20 Mg Tablet) 20 mg PO DAILY@1700 [facility] Last Admin: 03/18/23 17:30 Dose: 20 mg Documented By: PEYTON Sodium Chloride (0.9 % Sodium Chloride Flush 3 Ml Syringe) 3 ml IVFLUSH QSHIFT [facility] Last Admin: 03/19/23 09:18 Dose: 3 ml Documented By: PEYTON Labs 03/18/23 08:29 03/18/23 08:29 Microbiology Microbiology Results: Microbiology 03/16/23 17:19 Blood Culture - Preliminary Blood - Venous No growth after 48 hours. 03/16/23 12:51 Blood Culture - Preliminary Blood - Venous No growth after 48 hours. 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 Patient was recently admitted for septic shock, metabolic encephalopathy and acute hypoxemic respiratory failure due to MSSA bacteremia requiring intubation and pressors but left AMA on 03/14. # Sepsis due to MSSA bacteremia in a patient with IVDU. Continue nafcillin and follow up on cultures. TTE negative for vegetations during previous admission DC IV crystalloids negative repeat cultures ID following, to finish 6 weeks of IV Abx by 04/15. Pending placement and PICC line placement # Poly substance use disorder. Consulted Addiction Team. Monitor for withdrawals Continue MEthadon # recent acute liver injury due to hypotensiton in background of HCV untreated improving # History of PE. continue Xarelto #. Microcytic anemia. Iron panel fair with low TIBC #. Hypokalemia. Repleted DVT prophylaxis: Xarelto patient needs overnight inpatient stay for Pending final blood cultures on IV antibiotics and for placement Time Spent With Patient Time: Total time managing care of this patient today ____ minutes. Quality Stroke Does the patient have a stroke diagnosis?: No VTE Prior VTE?: No VTE Risk Level:: Medical - moderate - high VTE Device Contraindication: Treatment Not Indicated VTE Drug Contraindication: N/A - Med Ordered
--- NOTE | 2023-03-19 15:23 | MHC.RECOVRN ---
Met with pt to follow up regarding methadone and to check in to provide support. Pt sitting in chair, awake, alert, easily engages in conversation. Pt currently receiving 30 mg methadone daily, would like to continue titration and stabilize at 40 mg daily. Pt reports cravings late at night. Denies withdrawal symptoms. Pt anticipating discharge to [id number] soon, agreeable to placement and PICC line. Pt denies other questions or concerns at this time. Discussed with Tami Luna APRN.
[2023-03-19 15:37] VITALS: BP 107/71; PULSE 115; RESP 16; TEMP 36.6; O2SAT 95
[2023-03-19] MEDS: Rivaroxaban 20 MG TABLET PO (17:40)
[2023-03-19 19:24] VITALS: BP 145/77; PULSE 100; RESP 16; TEMP 36.6; O2SAT 98
[2023-03-20] MEDS: Nafcillin Sodium 2 GM in 0.9 % Sodium Chloride 100 ML IV ×5 (02:08→17:40)
--- NOTE | 2023-03-20 03:48 | PC.NURSE ---
Pt refused to have playground monitor leads rechecked. Pt now off teley monitor, [facility] notified.
[2023-03-20 07:02] VITALS: BP 142/94; PULSE 105; RESP 18; TEMP 36.1; O2SAT 97
--- NOTE | 2023-03-20 09:38 | P.DS_ITS ---
DS: Providers Provider Date of Service: 03/23/23 Date of admission: 03/16/23 19:42 Primary care physician: [facility] Consults: 03/16/23 19:44 Addiction Medicine Routine Consulting Provider: Addiction Oscar Reason for consultation: substance use disorder DS: Diagnosis Discharge Diagnosis (1) Staphylococcus aureus bacteremia with sepsis: Status: Resolved (2) Substance abuse: Status: Inactive (3) MSSA bacteremia: Status: Acute DS: Summary Hospital Course Hospital Course: Admission note HPI This is a 32-year-old male with pertinent history of poly substance use disorder (including IV opiates, cocaine, alcohol, marijuana and tobacco) with resultant complications include 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 Patient was recently admitted for septic shock, metabolic encephalopathy and acute hypoxemic respiratory failure due to MSSA bacteremia requiring intubation and pressors but left AMA on 03/14.? Noted multiple previous hospitalizations and multiple AMA discharges.? Patient states he came as he was not feeling well.? Complains of ongoing fevers and chills.? States that he was not thinking right when he left AMA.? Does not want to on the streets and wants proper treatment.? Understands that he has bacteremia and is willing to stay in the hospital.? Also complains of chest discomfort, shortness of breath. In the emergency department, patient was found to be septic and given IV nafcillin Hospital course The patient was admitted to continue treatment for MSSA bacteremia in a patient with IVDU after he signed AMA the day before. restarted on nafcillin as blood cultures were drawn. TTE negative for vegetations during previous admission. Blood cultures came back negative. discussed with ID who recommended to continue the total of 6 weeks of antibiotics rather than restart counting again. no fever or chills during hospital stay. a Midline placed at day of discharge to [facility] to continue antibiotics until 04/15 to finish total of 6 weeks of antibiotics since first negative blood culture on 03/04. He has a history of Poly substance use disorder.?Consulted Addiction Team.?who started him on Methadone. increased to 40 mg daily. to be follow as outpatient. Has a history of untreated Hepatitis C infection. needs to be followed as outpatient. History of PE.?continue Xarelto. The patient transfer was postpone by facility until Thursday, Midline in place. To finish Antibiotics by 04/15/2023. Noticed to have mild ascites. no evidence of Cirrhosis on abdominal images. started on Spironolactone. advised to follow up as outpatient for Hepatitis C treatment. Continue Nafcillin as prescribed Avoid drugs, continue with Methadone Nicotine patches as ordered Time Spent with Patient Time attestation: Total time managing care of this patient today ____ minutes. Discharge coordination time: Greater than 30 minutes Quality: Safe Use of Opioids Does Pt have an Active Cancer Diagnosis on the Problem List?: No Quality: Stroke Does the patient have a stroke diagnosis?: No Physical Exam Vital Signs: Vital Signs: Last Vital Signs Temp 97 F 03/20/23 07:02 Pulse 105 H 03/20/23 07:02 Resp 18 03/20/23 07:02 BP 142/94 H 03/20/23 07:02 Pulse Ox 97 03/20/23 07:02 O2 Del Method Room Air 03/20/23 07:02 BMI result Body Mass Index 25.9 Const: Other: Constitutional : Awake, interactive, not in distress Neck : Normal inspection, Supple, midline in place. Cardiovascular : RRR, no JVP, no lower extremity edema Respiratory : good bilateral air entry, no crackles, wheezes or rhonchi Gastrointestinal: soft, lax, Normal bowel sounds, mildly distended, Non tender Skin : Warm, Dry Neurological : Alert & oriented x3, No focal deficit DS: Data Data Completed and Pending Completed studies during hospitalization [Text1]: Procedures Detoxification Services for Substance Abuse Treatment (11/18/21) Insertion of Endotracheal Airway into Trachea, Via Natural or Artificial Opening (03/03/23) Insertion of Infusion Device into Superior Vena Cava, Percutaneous Approach (03/03/23) Introduction of Vasopressor into Central Vein, Percutaneous Approach (03/03/23) Respiratory Ventilation, Greater than 96 Consecutive Hours (03/03/23) Ultrasonography of Superior Vena Cava, Guidance (03/03/23) Labs on day of discharge: Preliminary micro results at discharge 03/16/23 17:19 Blood Culture - Preliminary Blood - Venous No growth after 48 hours. 03/16/23 12:51 Blood Culture - Preliminary Blood - Venous No growth after 48 hours. Imaging Chest x-ray: Radiologist's impression: ITS Impressions Chest X-Ray 03/16/23 17:05 IMPRESSION: No acute cardiopulmonary process. Discharge Plan Discharge Anticipated Discharge Date/Time: 03/20/23 11:40 Patient Disposition: Left Against Medical Advice Discharge Diagnosis: Staph Aureus bacteremia Referrals: [facility] [Outside] - 1 Week Center,[facility] [Primary Care Provider] - 1 Week Discharge Medications: New nafcillin 2 gram Recon Soln 2 g IV Q4H 26 Days Qty: 1 0RF nicotine 21 mg/24 hr Patch 24 Hour 21 mg transdermal DAILY Qty: 30 0RF methadone [Methadose] 10 mg/mL Concentrate 40 mg PO DAILY Qty: 4 0RF Rx Instructions: Partial Fill upon patient request. Continued Xarelto 20 mg Tablet 20 mg PO DAILY Qty: 30 0RF Rx Instructions: must administer with evening meal Discontinued amoxicillin-pot clavulanate 875-125 mg tablet 1 tab PO Q12H Qty: 28 0RF Rx Instructions: STARTED 2-3 DAYS AGO Discharge Orders: Discharge Order (Routine); Ordered 03/23/23 Ordered By: Robin Huitron Diet: Advance to usual diet Activity on Discharge: As tolerated Care Plan Goals: Read below Health Concerns: Read below Plan of Treatment: Read below Assessment: You were admitted to continue treatment for bacteremia. blood cultures remained negative. you still need 23 more days of antibiotics at time of discharge. Dose of Methadone increased to 40 mg daily.
[2023-03-20] MEDS: Nicotine 21 MG PATCH.TD24 TRANSDERMA (09:54)
[2023-03-20] MEDS: methADONE HCl 20 MG/2 ML ORAL.CONC 40 MG PO (09:55)
[2023-03-20] MEDS: 0.9 % Sodium Chloride Flush 3 ML SYRINGE IVFLUSH (09:55)
--- NOTE | 2023-03-20 13:18 | P.PNIM_ITS ---
Subjective Subjective Date of Service: 03/20/23 Interval History: Seen and evaluated this morning Feels better and waiting placement no withdrawal symptoms waiting for PICC and methadone set up as outpatient Review of Systems Review of Systems: Yes all other systems are reviewed and are negative Physical Exam Vital Signs: Vital Signs: Last Vital Signs Temp 97 F 03/20/23 07:02 Pulse 105 H 03/20/23 07:02 Resp 18 03/20/23 07:02 BP 142/94 H 03/20/23 07:02 Pulse Ox 97 03/20/23 07:02 O2 Del Method Room Air 03/20/23 07:02 BMI result Body Mass Index 25.9 Const: Other: Constitutional : Awake, interactive, not in distress Neck : Normal inspection, Supple Cardiovascular : RRR, no JVP, no lower extremity edema Respiratory : good bilateral air entry, no crackles, wheezes or rhonchi Gastrointestinal: soft, lax, Normal bowel sounds, mildly distended, Non tender Skin : Warm, Dry Neurological : Alert & oriented x3, No focal deficit Objective Data Active Medications Acetaminophen (Acetaminophen 325 Mg Tablet) 650 mg PO Q6H PRN PRN Reason: Pain, Mild (Pain Scale 1-3) Last Admin: 03/17/23 21:04 Dose: 650 mg Documented By: HILARY Nafcillin Sodium 2 gm/ Sodium (Chloride) 100 mls @ 200 mls/hr IV Q4H [facility] Last Infusion: 03/20/23 10:29 Dose: 200 mls/hr Documented By: CAROLINE Melatonin (Melatonin 3 Mg Tablet) 6 mg PO BEDTIME PRN PRN Reason: Insomnia Last Admin: 03/19/23 02:34 Dose: 6 mg Documented By: DAVE Methadone HCl (Methadone Hcl 20 Mg/2 Ml Oral.Conc) 40 mg PO DAILY [facility] Last Admin: 03/20/23 09:55 Dose: 40 mg Documented By: CAROLINE Nicotine (Nicotine 21 Mg Patch.Td24) 21 mg TRANSDERMA DAILY [facility] Last Admin: 03/20/23 09:54 Dose: 21 mg Documented By: CAROLINE Ondansetron HCl (Ondansetron Hcl 4 Mg/2 Ml Vial) 4 mg IVPUSH Q6H PRN PRN Reason: Nausea and Vomiting Last Admin: 03/19/23 09:18 Dose: 4 mg Documented By: PEYTON Pharmacy Consult (Consult Rx Perform Med Rec) 1 each MISCELLANE ONCE PRN PRN Reason: Consult order Rivaroxaban (Rivaroxaban 20 Mg Tablet) 20 mg PO DAILY@1700 [facility] Last Admin: 03/19/23 17:40 Dose: 20 mg Documented By: PEYTON Sodium Chloride (0.9 % Sodium Chloride Flush 3 Ml Syringe) 3 ml IVFLUSH QSHIFT [facility] Last Admin: 03/20/23 09:55 Dose: 3 ml Documented By: CAROLINE Labs 03/18/23 08:29 03/18/23 08:29 Assessment and Plan (1) Staphylococcus aureus bacteremia with sepsis: Status: Acute (2) Substance abuse: Status: Acute Plan This is a 32-year-old male with pertinent history of poly substance use disorder (including IV opiates, cocaine, alcohol, marijuana and tobacco) with resultant complications include 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 Patient was recently admitted for septic shock, metabolic encephalopathy and acute hypoxemic respiratory failure due to MSSA bacteremia requiring intubation and pressors but left AMA on 03/14. # Sepsis due to MSSA bacteremia in a patient with IVDU. Continue nafcillin and follow up on cultures. TTE negative for vegetations during previous admission DC IV crystalloids negative repeat cultures ID following, to finish 6 weeks of IV Abx by 04/15. Pending placement and PICC line placement # Poly substance use disorder. Consulted Addiction Team. Monitor for withdrawals Continue MEthadone # recent acute liver injury due to hypotensiton in background of HCV untreated improving # History of PE. continue Xarelto #. Microcytic anemia. Iron panel fair with low TIBC #. Hypokalemia. Repleted DVT prophylaxis: Xarelto patient needs overnight inpatient stay forIV antibiotics pending placement Time Spent With Patient Time: Total time managing care of this patient today ____ minutes. Quality Stroke Does the patient have a stroke diagnosis?: No VTE Prior VTE?: No VTE Risk Level:: Medical - moderate - high VTE Device Contraindication: Treatment Not Indicated VTE Drug Contraindication: N/A - Med Ordered
--- NOTE | 2023-03-20 14:25 | HO.MIDLINE ---
Midline Insertion MIDLINE INSERTION Diagnosis: Bacteremia with Sepsis Indication: [facility]ci antibiotics needed Pertinent Labs: reviewed Technique: Using sterile technique including cap and mask, glove and drape, the right arm was prepped and draped in the usual sterile fashion of full barrier technique with CHG. Using ultrasound guidance, right basilic vein access was obtained twice by Britney Acevedo RN, but unable to pass guidewire. Right brachial was then accessed twice by Jerson García RN, but unable to pass guidewire. Sterile field broken down and discarded. Patient requested that this RN try to put Midline in his left arm. Using sterile technique including cap and mask, glove and drape, the left arm was prepped and draped in the usual sterile fashion of full barrier technique with CHG. Using ultrasound guidance, left basilic vein access was obtained on first attempt by Jerson García RN. A 20G X 8CM non-PASV Midline was positioned. The procedure was performed in S272. Ultrasound was used to document vein patency and for needle entry. A formal ultrasound picture was recorded. Vascular Sign Language Interpreter has released the line for use and it is currently dressed with a StatLock, Tegaderm, and CHG disc. Verification has been performed for blood return and line patency. Arm Circumference: 27.5CM Equipment: BARD PowerGlide ST Midline Catheter Type: 20G X 8CM non-PASV Midline Lot #: [id number]
[2023-03-20] MEDS: Rivaroxaban 20 MG TABLET PO (17:44)
[2023-03-21 04:00] VITALS: TEMP -17.7; TEMP 0
--- NOTE | 2023-03-21 05:53 | PC.NURSE ---
Pt refused physical assessment, refused antibiotics. Pt was reeducated about the risk of not complying with his antibiotic therapy and heparin flash (midline). Pt continued to refuse all his medications.
[2023-03-21] MEDS: 0.9 % Sodium Chloride Flush 3 ML SYRINGE IVFLUSH (08:49)
[2023-03-21] MEDS: Heparin Sodium,Porcine Flush 50 UNITS, 0.9 % Sodium Chloride Flush 5 ML IVFLUSH ×3 (08:49→21:56)
[2023-03-21] MEDS: methADONE HCl 20 MG/2 ML ORAL.CONC 40 MG PO (08:53)
[2023-03-21] MEDS: Nicotine 21 MG PATCH.TD24 TRANSDERMA (08:54)
[2023-03-21] MEDS: Nafcillin Sodium 2 GM in 0.9 % Sodium Chloride 100 ML IV ×4 (08:59→21:56)
[2023-03-21] MEDS: traMADoL HCL 50 MG TABLET 25 MG PO ×2 (12:06→21:54)
--- NOTE | 2023-03-21 12:44 | HO.PM.IMPN ---
Subjective Subjective Date of Service: 03/21/23 Interval History: Seen and evaluated this morning Midline in place no withdrawal symptoms Wanted to leave AMA yesterday but changed his mind then waiting methadone set up as outpatient Review of Systems Review of Systems: Yes all other systems are reviewed and are negative Physical Exam Vital Signs: Vital Signs: Last Vital Signs Temp 0 F L 03/21/23 04:00 Pulse 105 H 03/20/23 07:02 Resp 18 03/20/23 07:02 BP 142/94 H 03/20/23 07:02 Pulse Ox 97 03/20/23 07:02 O2 Del Method Room Air 03/20/23 07:02 BMI result Body Mass Index 25.9 Const: Other: Constitutional : Awake, interactive, not in distress Neck : Normal inspection, Supple Cardiovascular : RRR, no JVP, no lower extremity edema Respiratory : good bilateral air entry, no crackles, wheezes or rhonchi Gastrointestinal: soft, lax, Normal bowel sounds, mildly distended, Non tender Skin : Warm, Dry Neurological : Alert & oriented x3, No focal deficit Objective Data Active Medications Acetaminophen (Acetaminophen 325 Mg Tablet) 650 mg PO Q6H PRN PRN Reason: Pain, Mild (Pain Scale 1-3) Last Admin: 03/17/23 21:04 Dose: 650 mg Documented By: HILARY Heparin Sodium (Porcine) 50 (units/ Sodium Chloride 5 ml) 0 units IVFLUSH TID [facility] Last Admin: 03/21/23 08:49 Dose: 50 unit Documented By: JALEN Nafcillin Sodium 2 gm/ Sodium (Chloride) 100 mls @ 200 mls/hr IV Q4H [facility] Last Infusion: 03/21/23 09:55 Dose: 200 mls/hr Documented By: JALEN Melatonin (Melatonin 3 Mg Tablet) 6 mg PO BEDTIME PRN PRN Reason: Insomnia Last Admin: 03/19/23 02:34 Dose: 6 mg Documented By: DAVE Methadone HCl (Methadone Hcl 20 Mg/2 Ml Oral.Conc) 40 mg PO DAILY [facility] Last Admin: 03/21/23 08:53 Dose: 40 mg Documented By: JALEN Nicotine (Nicotine 21 Mg Patch.Td24) 21 mg TRANSDERMA DAILY [facility] Last Admin: 03/21/23 08:54 Dose: 21 mg Documented By: JALEN Ondansetron HCl (Ondansetron Hcl 4 Mg/2 Ml Vial) 4 mg IVPUSH Q6H PRN PRN Reason: Nausea and Vomiting Last Admin: 03/19/23 09:18 Dose: 4 mg Documented By: PEYTON Pharmacy Consult (Consult Rx Perform Med Rec) 1 each MISCELLANE ONCE PRN PRN Reason: Consult order Rivaroxaban (Rivaroxaban 20 Mg Tablet) 20 mg PO DAILY@1700 [facility] Last Admin: 03/20/23 17:44 Dose: 20 mg Documented By: FRANNY Sodium Chloride (0.9 % Sodium Chloride Flush 3 Ml Syringe) 3 ml IVFLUSH QSHIFT [facility] Last Admin: 03/21/23 08:49 Dose: 3 ml Documented By: JALEN Tramadol HCl (Tramadol Hcl 50 Mg Tablet) 25 mg PO Q6H PRN PRN Reason: Pain, Moderate(Pain Scale 4-6) Last Admin: 03/21/23 12:06 Dose: 25 mg Documented By: JALEN Labs 03/18/23 08:29 03/18/23 08:29 Assessment and Plan (1) Staphylococcus aureus bacteremia with sepsis: Status: Acute (2) Substance abuse: Status: Acute Plan This is a 32-year-old male with pertinent history of poly substance use disorder (including IV opiates, cocaine, alcohol, marijuana and tobacco) with resultant complications include 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 Patient was recently admitted for septic shock, metabolic encephalopathy and acute hypoxemic respiratory failure due to MSSA bacteremia requiring intubation and pressors but left AMA on 03/14. # Sepsis due to MSSA bacteremia in a patient with IVDU. Continue nafcillin and follow up on cultures. TTE negative for vegetations during previous admission DC IV crystalloids negative repeat cultures ID following, to finish 6 weeks of IV Abx by 04/15. Pending placement and PICC line placement # Poly substance use disorder. Consulted Addiction Team. Monitor for withdrawals Continue MEthadone # recent acute liver injury due to hypotensiton in background of HCV untreated improving # History of PE. continue Xarelto #. Microcytic anemia. Iron panel fair with low TIBC #. Hypokalemia. Repleted DVT prophylaxis: Xarelto patient needs overnight inpatient stay forIV antibiotics pending placement Time Spent With Patient Time: Total time managing care of this patient today ____ minutes. Quality Stroke Does the patient have a stroke diagnosis?: No VTE Prior VTE?: No VTE Risk Level:: Medical - moderate - high VTE Device Contraindication: Treatment Not Indicated VTE Drug Contraindication: N/A - Med Ordered
--- NOTE | 2023-03-21 13:35 | MHC.RECOVRN ---
This curriculum writer met with patient, patient alert, sitting in recliner, watching television. Patient polite, pleasant, engaged during conversation with this curriculum writer. Patient reports triggered by event yesterday with staff person, wanted to leave AMA. Patient reports this led to refusing medications. Patient reports when feels triggered, recognizes needs space and prefers to be left alone. Patient reports has maintained stay at hospital for his Mother whom is disabled and unstably housed. Patient reports motivated to stay in treatment at hospital and further levels of care to heal, get better and maintain recovery while on probation. Patient discussed behaviour modifications, healthy coping strategies related to triggers. Patient states was feeling chills this a.m. before MTD dose, after MTD dose, s/s resolved.
[2023-03-21 16:00] VITALS: BP 120/96; PULSE 104; RESP 16; TEMP 36.8; O2SAT 95
[2023-03-21] MEDS: Rivaroxaban 20 MG TABLET PO (16:47)
[2023-03-21] MEDS: Melatonin 3 MG TABLET 6 MG PO (21:54)
[2023-03-22] MEDS: Nafcillin Sodium 2 GM in 0.9 % Sodium Chloride 100 ML IV ×5 (01:31→17:19)
[2023-03-22 06:28] LABS: Hematocrit 28.8 % (42.0-52.0); Hemoglobin 9.3 g/dl (14.0-18.0); Mean Corpuscular HGB Conc 32.3 g/dl (31.0-36.0); Mean Corpuscular Hemoglobin 25.3 pg (27.0-33.0); Mean Corpuscular Volume 78.3 fL (80.0-98.0); Mean Platelet Volume 9.4 fL (9.4-12.4); Platelet Count 487 X10*3/uL (160-400); Red Blood Count 3.68 X10*6/uL (4.60-5.80); White Blood Count 7.5 X10*3/uL (4.8-10.8)
[2023-03-22 06:39] LABS: Anion Gap 12 (12-20); Blood Urea Nitrogen 13 mg/dL (9-16); Calcium 8.6 mg/dL (8.4-10.2); Carbon Dioxide 22 mmol/L (22-29); Chloride 112 mmol/L (96-108); Creatinine Clr Calc Pharmacy 121.6; Estimated Glomerular Filt Rate > 60; Glucose Random 74 mg/dL (60-115); Potassium 3.9 mmol/L (3.3-5.1); Sodium 142 mmol/L (135-145)
[2023-03-22] MEDS: Nicotine 21 MG PATCH.TD24 TRANSDERMA (08:53)
[2023-03-22] MEDS: methADONE HCl 20 MG/2 ML ORAL.CONC 40 MG PO (08:54)
[2023-03-22] MEDS: Heparin Sodium,Porcine Flush 50 UNITS, 0.9 % Sodium Chloride Flush 5 ML IVFLUSH ×2 (08:56→14:43)
--- NOTE | 2023-03-22 10:12 | HO.PM.IMPN ---
Subjective Subjective Date of Service: 03/22/23 Interval History: Seen and evaluated this morning Midline in place no withdrawal symptoms Wanted to leave AMA yesterday but changed his mind then waiting methadone set up as outpatient Physical Exam Vital Signs: Vital Signs: Last Vital Signs Temp 98.3 F 03/21/23 16:00 Pulse 104 H 03/21/23 16:00 Resp 16 03/21/23 16:00 BP 120/96 H 03/21/23 16:00 Pulse Ox 95 03/21/23 16:00 O2 Del Method Room Air 03/21/23 16:00 BMI result Body Mass Index 25.9 Const: Other: Constitutional : Awake, interactive, not in distress Neck : Normal inspection, Supple Cardiovascular : RRR, no JVP, no lower extremity edema Respiratory : good bilateral air entry, no crackles, wheezes or rhonchi Gastrointestinal: soft, lax, Normal bowel sounds, mildly distended, Non tender Skin : Warm, Dry Neurological : Alert & oriented x3, No focal deficit Objective Data Active Medications Acetaminophen (Acetaminophen 325 Mg Tablet) 650 mg PO Q6H PRN PRN Reason: Pain, Mild (Pain Scale 1-3) Last Admin: 03/17/23 21:04 Dose: 650 mg Documented By: HILARY Heparin Sodium (Porcine) 50 (units/ Sodium Chloride 5 ml) 0 units IVFLUSH TID [facility] Last Admin: 03/22/23 08:56 Dose: 50 unit Documented By: JALEN Nafcillin Sodium 2 gm/ Sodium (Chloride) 100 mls @ 200 mls/hr IV Q4H [facility] Last Admin: 03/22/23 09:36 Dose: 200 mls/hr Documented By: RUDY Melatonin (Melatonin 3 Mg Tablet) 6 mg PO BEDTIME PRN PRN Reason: Insomnia Last Admin: 03/21/23 21:54 Dose: 6 mg Documented By: MARGARITA Methadone HCl (Methadone Hcl 20 Mg/2 Ml Oral.Conc) 40 mg PO DAILY [facility] Last Admin: 03/22/23 08:54 Dose: 40 mg Documented By: JALEN Nicotine (Nicotine 21 Mg Patch.Td24) 21 mg TRANSDERMA DAILY [facility] Last Admin: 03/22/23 08:53 Dose: 21 mg Documented By: JALEN Ondansetron HCl (Ondansetron Hcl 4 Mg/2 Ml Vial) 4 mg IVPUSH Q6H PRN PRN Reason: Nausea and Vomiting Last Admin: 03/19/23 09:18 Dose: 4 mg Documented By: PEYTON Pharmacy Consult (Consult Rx Perform Med Rec) 1 each MISCELLANE ONCE PRN PRN Reason: Consult order Rivaroxaban (Rivaroxaban 20 Mg Tablet) 20 mg PO DAILY@1700 [facility] Last Admin: 03/21/23 16:47 Dose: 20 mg Documented By: JALEN Sodium Chloride (0.9 % Sodium Chloride Flush 3 Ml Syringe) 3 ml IVFLUSH QSHIFT [facility] Last Admin: 03/22/23 07:03 Dose: Not Given Documented By: JALEN Non-Admin Reason: IV Running Tramadol HCl (Tramadol Hcl 50 Mg Tablet) 25 mg PO Q6H PRN PRN Reason: Pain, Moderate(Pain Scale 4-6) Last Admin: 03/21/23 21:54 Dose: 25 mg Documented By: MARGARITA Labs 03/22/23 05:43 03/22/23 05:43 Labs: Laboratory Results - last 24 hr 03/22/23 03/22/23 05:43 05:43 MCV 78.3 L MCH 25.3 L MCHC 32.3 RDW TNP Plt Count 487 H MPV 9.4 Absolute Nucleated RBC 0.000 Nucleated RBC % (auto) 0.0 Anion Gap 12 Estim Creat Clear Calc 121.6 Estimated GFR > 60 Random Glucose 74 Calcium 8.6 Microbiology Microbiology Results: Microbiology 03/16/23 17:19 Blood Culture - Final Blood - Venous No growth after 5 days. 03/16/23 12:51 Blood Culture - Final Blood - Venous No growth after 5 days. 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 Patient was recently admitted for septic shock, metabolic encephalopathy and acute hypoxemic respiratory failure due to MSSA bacteremia requiring intubation and pressors but left AMA on 03/14. # Sepsis due to MSSA bacteremia in a patient with IVDU. Continue nafcillin and follow up on cultures. TTE negative for vegetations during previous admission negative repeat cultures ID following, to finish 6 weeks of IV Abx by 04/15. Midline placed Pending placement # Poly substance use disorder. Consulted Addiction Team. Monitor for withdrawals Continue MEthadone # recent acute liver injury due to hypotensiton in background of HCV untreated improving # History of PE. continue Xarelto #. Microcytic anemia. Iron panel fair with low TIBC #. Hypokalemia. Repleted DVT prophylaxis: Xarelto patient needs overnight inpatient stay forIV antibiotics pending placement Time Spent With Patient Time: Total time managing care of this patient today ____ minutes. Quality Stroke Does the patient have a stroke diagnosis?: No VTE Prior VTE?: No VTE Risk Level:: Medical - moderate - high VTE Device Contraindication: Treatment Not Indicated VTE Drug Contraindication: N/A - Med Ordered
[2023-03-22] MEDS: traMADoL HCL 50 MG TABLET 25 MG PO ×2 (13:55→19:57)
[2023-03-22 16:28] VITALS: BP 131/86; PULSE 95; RESP 20; TEMP 36.6; O2SAT 100
[2023-03-22] MEDS: Rivaroxaban 20 MG TABLET PO (17:18)
--- NOTE | 2023-03-22 18:01 | PC.NURSE ---
Addendum entered by Yesi Rice RN 03/22/23 18:05: sclera of eyes also yellow. Original Note: Pt abdominal girth appears to have increased over the last 48 hours during this nurses assessments. This has not been measured for girth, just by physical appearance. Message sent to covering provider to alert.
[2023-03-22 19:36] VITALS: BP 123/68; PULSE 107; RESP 18; TEMP 37; O2SAT 99
[2023-03-22] MEDS: Melatonin 3 MG TABLET 6 MG PO (19:57)
--- NOTE | 2023-03-22 22:15 | PC.NURSE ---
Addendum entered by Ninoska Bran 03/23/23 06:41: Pt refused 2nd Nafcillin, pt stated I'm all set with that . I asked pt if he doesn't want the abx he turned his head and went back to sleep, and refused to answer. Original Note: Pt refused Nafcillin and heparin flush to midline, pt stated he's sleeping, he doesn't want it. Pt educated on the purpose for the abx and still refuses.
[2023-03-23] MEDS: Nafcillin Sodium 2 GM in 0.9 % Sodium Chloride 100 ML IV ×2 (01:55→10:15)
[2023-03-23] MEDS: Heparin Sodium,Porcine Flush 50 UNITS, 0.9 % Sodium Chloride Flush 5 ML IVFLUSH (08:05)
[2023-03-23] MEDS: methADONE HCl 20 MG/2 ML ORAL.CONC 40 MG PO (08:06)
[2023-03-23] MEDS: Spironolactone 25 MG TABLET 12.5 MG PO (08:06)
[2023-03-23] MEDS: Nicotine 21 MG PATCH.TD24 TRANSDERMA (08:06)
--- NOTE | 2023-03-23 10:30 | MHC.CM.PN ---
Addendum entered by Maribel Tidwell 03/23/23 11:09: LETTER FAXED TO [facility] AT [phone] [facility] Original Note: [facility] HAS CONFIRMED PTS MMT IS SET UP AT [facility] [place]. SHE WILL NEED A LAST DOSE LETTER AND PTS DCS EARLY POSSIBLE CM MET WITH PT WHO SIGNED A ANABEL FOR HIS PO TO CONFIRM HE IS GOING TO [place]. A LETTER WILL ALSO BE FAXED TO THE [facility] REQUESTED BY PT PT IS AWARE BLS TRANSPORT HAS BEEN ARRANGED FOR 1300 HOURS WITH [facility]
== END 2023-03-23 13:23 | disposition skilled nursing facility (03) | DRG 720 ==
LOC: HO.ED 18:14 → HO.EDOVER 20:09 → HO.S3 20:11
PROVIDERS: Internal Medicine; Admitting Provider Student in an Organized Health Care Education/Training Program; Emergency Provider Emergency Medicine; Visit Provider Student in an Organized Health Care Education/Training Program
DX: A41.01 Sepsis due to Methicillin susceptible Staphylococcus aureus (principal); D50.9 Iron deficiency anemia, unspecified; E87.6 Hypokalemia; F11.23 Opioid dependence with withdrawal; F19.10 Other psychoactive substance abuse, uncomplicated; Z59.02 Unsheltered homelessness; Z86.711 Personal history of pulmonary embolism; Z79.01 Long term (current) use of anticoagulants; Z79.899 Other long term (current) drug therapy
CPT/HCPCS: 36410; 36415; 71045; 80048; 80076; 81001; 83540; 83605; 83690; 83880; 84484; 85025; 85027; 87040; 87086; 93005; 99285; J1642; J2405

== ENCOUNTER 2023-04-13 13:22 | Outpatient (REF) | payer MEDICAID, SELFPAY | END 2023-04-13 13:23 | disposition home or self-care (01) | LOC: HO.LAB 13:22 | PROVIDERS: Visit Provider Internal Medicine | DX: A41.9 Sepsis, unspecified organism (principal); I38 Endocarditis, valve unspecified; B19.20 Unspecified viral hepatitis C without hepatic coma | CPT/HCPCS: 87040; 99212 ==

== ENCOUNTER 2023-07-30 13:03 | Outpatient (REF) | payer MEDICAID, SELFPAY ==
[2023-07-30 13:28] LABS: MANUAL DIFF FLAG NO
[2023-07-30 13:56] LABS: Basophils Absolute Auto 0.1 X10*3/uL (0.0-0.2); Basophils Percent Auto 0.9 % (0-2); Eosinophils Absolute Auto 0.6 X10*3/uL (0.0-0.4); Eosinophils Percent Auto 8.3 % (0-4); Hematocrit 43.9 % (42.0-52.0); Hemoglobin 13.9 g/dl (14.0-18.0); Imm Gran Abs Auto 0.02 X10*3/uL (0.00-0.03); Imm Gran Pct Auto 0.3 % (0.0-0.4); Lymphocytes Absolute Auto 2.3 X10*3/uL (1.2-4.9); Lymphocytes Percent Auto 34.6 % (20-40); Mean Corpuscular HGB Conc 31.7 g/dl (31.0-36.0); Mean Corpuscular Hemoglobin 24.3 pg (27.0-33.0); Mean Corpuscular Volume 76.9 fL (80.0-98.0); Monocytes Absolute Auto 0.6 X10*3/uL (0.1-1.2); Monocytes Percent Auto 8.5 % (2-11); Neutrophils Absolute Auto 3.1 x10*3/uL (2.0-8.3); Neutrophils Percent Auto 47.4 % (45-73); Platelet Count 165 X10*3/uL (160-400); Red Blood Count 5.71 X10*6/uL (4.60-5.80); Red Cell Distribution Width 17.2 % (11.0-16.0); White Blood Count 6.6 X10*3/uL (4.8-10.8)
[2023-07-30 13:59] LABS: INTERNATIONAL NORM RATIO 1.7 (0.9-1.1)
[2023-07-30 14:28] LABS: Alanine Aminotransferase 31 U/L (0-40); Albumin Level 4.6 g/dL (3.5-5.0); Alkaline Phosphatase 368 U/L (39-117); Anion Gap 14 (12-20); Aspartate Amino Transferase 38 U/L (5-37); Bilirubin Total 1.1 mg/dL (0.0-1.0); Blood Urea Nitrogen 10 mg/dL (9-16); C Reactive Protein 0.53 mg/dL (< or = 0.50); Carbon Dioxide 25 mmol/L (22-29); Chloride 105 mmol/L (96-108); Estimated Glomerular Filt Rate > 60; Glucose Random 76 mg/dL (60-115); Iron 59 mcg/dL (45-160); Percent Iron Saturation 15 % (15-50); Potassium 4.3 mmol/L (3.3-5.1); Sodium 140 mmol/L (135-145); Total Iron Binding Capacity 399 mcg/dL (228-428); Total Protein 8.6 g/dL (6.5-8.0); Unsaturated Iron Binding 340 ug/dL
[2023-07-31 04:00] LABS: Hepatitis A Antibody IgG REACTIVE (Nonreactive); ~Hepatitis A Antibody IgG 10.57 S/CO (0.00-0.99)
[2023-07-31 04:02] LABS: HBc Num1 0.07 S/CO (0.00-0.79); HBsAGNum1 0.33 S/CO (0.00-0.99); Hepatitis B Core Antibody Nonreactive (Nonreactive); Hepatitis B Surface Antigen Negative (Negative); ~HepC Num1 14.63 S/CO (0.00-0.79); ~Hepatitis C Antibody Reactive (Nonreactive)
[2023-07-31 23:19] LABS: Hepatitis BE Antibody NON-REACTIVE (NON-REACTIVE)
[2023-08-04 15:03] LABS: Hepatitis C Genotype 1a
== END 2023-07-30 13:04 | disposition home or self-care (01) ==
LOC: HO.LAB 13:03
PROVIDERS: Visit Provider Nurse Practitioner
DX: B18.2 Chronic viral hepatitis C (principal)
CPT/HCPCS: 36415; 80053; 83540; 85025; 85610; 86140; 86704; 86707; 86708; 86803; 87340; 87902

== ENCOUNTER 2023-10-27 15:30 | Outpatient (REF) | payer MEDICAID, SELFPAY ==
--- NOTE | ~2023-10-27 | CT_ITS ---
EXAMINATION: CT ABDOMEN without and WITH CONTRAST CLINICAL INFORMATION: Dyspnea and liver mass. COMPARISON: Ultrasound abdomen 03/12/2023: The liver is enlarged in size measuring 20 cm. The liver contour is normal. Parenchymal echogenicity is increased. No focal hepatic lesion. CT abdomen pelvis 03/02/2023: The liver is normal in size, shape, and attenuation. No focal hepatic lesion or biliary ductal dilatation is present. TECHNIQUE: Multidetector volumetric imaging was performed from the superior aspect of the liver through the iliac crests both before as well as following administration of 85 mL of Omnipaque 350. 2 sets of postcontrast scans were obtained, one during the arterial phase and another during the portal venous phase. Sagittal and coronal reformatted images were obtained on the technologist's workstation. This CT examination was performed using dose optimization techniques as appropriate, variously including the following: *Automated exposure control *Adjustment of mA and/or kV according to patient size (this includes techniques or standardized protocols for targeted exams where dose is matched to indication/reason for exam; i.e. extremities or head) *Use of iterative reconstruction technique DLP: 576 mGy-cm FINDINGS: LUNG BASES: Bibasilar scarring is present. Mild peribronchial thickening is seen. Small unchanged perifissural 4 mm right lower lobe pulmonary nodule (8:74 compare prior 36:80). Patient is status post median sternotomy and epicardial pacer wires are partially visualized. LIVER, GALLBLADDER, AND BILIARY TREE: The liver is enlarged at 19.2 cm in cephalocaudad dimension and demonstrates heterogeneous attenuation both before and after IV contrast with no discrete mass seen. There is no biliary ductal dilatation present. The gallbladder wall is thickened but there is no evidence of radiopaque gallstones or obvious pericholecystic inflammatory changes. Small volume ascites is present around the liver and spleen. PANCREAS: Unremarkable. SPLEEN: Mild splenomegaly at 13 cm. ADRENAL GLANDS: Unremarkable. KIDNEYS AND URETERS: The kidneys are normal in size, shape, and attenuation. No hydronephrosis, hydroureter, or calculi seen. No perinephric stranding. GASTROINTESTINAL TRACT: The visualized bowel unremarkable. ABDOMINAL WALL: No significant hernia is appreciated. LYMPH NODES: Shotty retroperitoneal lymph nodes are seen but there is no adenopathy. The largest lymph node is aortocaval measuring 0.7 cm (5:57). VASCULAR: The IVC is dilated and there is reflux of contrast into the IVC and hepatic veins suggesting elevated right-sided heart pressure. OSSEOUS STRUCTURES: Unremarkable. CT/CT liver 3 phase IMPRESSION: 1. Enlarged heterogeneous liver with no discrete mass seen. 2. Small volume ascites. 3. Mild splenomegaly. 4. Dilated IVC with reflux of contrast into the IVC and hepatic veins suggesting elevated right-sided heart pressure. 5. Other incidental findings as described above. Fleischner guidelines were followed.
[2023-10-27] MEDS: iohexoL 350 MG/ML 100 ML INFUS..BTL IV (16:37)
== END 2023-10-27 15:31 | disposition home or self-care (01) ==
LOC: HO.CT 15:30
PROVIDERS: Visit Provider Internal Medicine Gastroenterology
DX: K74.60 Unspecified cirrhosis of liver (principal)
CPT/HCPCS: 74170; Q9967

== ENCOUNTER 2023-11-03 08:31 | Outpatient (AMB) | payer MEDICAID, SELFPAY ==
--- NOTE | 2023-11-03 08:40 | MHC.OFFVIS ---
Intake Vital Signs 11/03/23 08:48 Height 5 ft 7 in Weight 179 lb BMI 28.0 Handedness Right Intake Visit Reasons: New Pt - Lt Index finger pain Intake Note: Norberto is a 33 year old right hand dominant male who presents today as a new patient for a evaluation of his left index finger. Patient reports his index finger looks swollen about 1-2 years ago. Patient informed me that his finger was swollen on its own he thought it was a spider bite. He states that he has an infection in his heart he thinks that the infection is causing his finger to swell up. IF is causing him a lot of pain and he is not able to bend his finger. Having off and on numbness and tingling in his whole finger. Allergies No Known Allergies [No Known Allergies*] Allergy (Verified 11/03/23 08:47) HPI New Pt - Lt Index finger pain HPI Details 33-year-old right hand dominant male who presents in the office today, as a new patient, for an evaluation of left index finger pain. The patient was referred to the office by Dr. Gracia Deluna status post 2 years of left index finger pain with POP joint edema. He was previously diagnosed with osteomyelitis of the joint and underwent IV antibiotic course (also for MSSA bacteremia/endocarditis). While in the office today the patient reports ongoing edema in the index finger for 1-2 years, since [id number]. He claims the finger with swell on its own. He states he originally thought it was due to spider bite. He states the index finger causes him a lot of pain and this limits his ROM. He reports intermittent numbness and tingling through out the entire digit. Patient confirms having an infections in his heart, which he feels causes his finger to swell. Patient has a significant medical history of Opioid and alcohol use disorder on Methadone, Hepatitis C complicated by decompensated cirrhosis. Patient is currently on anticoagulation. Patient has no known allergy history. Patient is currently taking, as follows: -Acetaminophen 650 mg PO Q6H PRN -Albuterol sulfate 90 mcg/acutation 2 puffs inhalation Q6H PRN -Gabapentin 100 mg PO TID -Methadone 40 mg PO daily -Nafcillin 2 grams IV Q4H -Nicotine 21 mg transdermal daily -Rivaroxaban 20 mg PO daily -Spironolactone 25 mg PO daily Patient has a medical history, as follows: -Right-sided heart failure -Acute respiratory failure -History of endocarditis -Hyperbilirubinemia -Acute kidney injury -History of sepsis -Pulmonary embolism; 11/2020 -Hypoxia -Poly-substance abuse -Leukocytosis -Opioid use disorder, severe, dependence -Liver steatosis -Hepatitis C Virus -Tricuspid valve stenosis -Anasarca -MSSA bacteremia Patient has a surgical history, as follows: -History of tricuspid valve replacement with bioprosthetic valve Patient has a social history, as follows: -Alcohol; former -Tobacco 20 cigarettes per day; 10 years of smoking -Substance use--Marijuana [facility] Medical History (Updated 11/03/23 @ 09:49 by Elayne Nino) Substance abuse MSSA bacteremia Opioid use disorder, severe, dependence Bacteremia Bacteremia Right heart failure Steatosis, liver Tricuspid valve stenosis Anasarca HCV (hepatitis C virus) Endocarditis Pulmonary embolism Surgical History History of tricuspid valve replacement with bioprosthetic valve Social History Household Members: None Household Members Other:: none. homeless Housing: Homeless Do you presently have visiting nurse or other home services: No Unable to assess alcohol history related to: Unknown Alcohol intake: former Patient Tobacco Use Status: Tobacco use Unknown Tobacco use type: Cigarette Cigarette Packs Per Day: 1 Cigarettes Per Day: 20.0 Years Smoked: 10 Second Hand Smoke Exposure: No Substance Use Type: Marijuana Advance Directives Date on File: 04/16/21 service: No Current occupational status: unemployed Review of Systems Const All systems reviewed & are unremarkable except as noted in HPI and below Physical Exam Vital Signs: BMI result Body Mass Index 28.0 Const General: cooperative and no acute distress Orientation/consciousness: patient oriented x3 Resp Effort & Inspection: normal respiratory effort and able to speak in complete sentences Cardio Peripheral pulses: Peripheral pulses 2+ throughout Skin General skin exam: no rashes or lesions noted Neuro General: patient oriented x3 Extrem Other: Left index finger significant swelling over the PIP joint associated with tenderness to palpation. Able to reach 90 degrees at the cmc joint but lacking about 4cm from making a closed fist. Sensation is intact. Capillary refill is brisk. Remainder of digits he is able to perform full ROM, sensation is intact, capillary refill is brisk. No ROM restrictions or pain at the wrist. Assessment & Plan Assessment & Plan (1) Osteomyelitis of left hand: Comment: Left index finger Code(s): M86.9 - Osteomyelitis, unspecified Qualifiers: Osteomyelitis type: unspecified type Qualified Code(s): M86.9 - Osteomyelitis, unspecified (2) Substance abuse: Code(s): F19.10 - Other psychoactive substance abuse, uncomplicated Plan Mr. Blair is a 33-year-old right hand dominant male who presents in the office today, as a new patient, for an evaluation of left index finger pain. The patient was referred to the office by Dr. Gracia Deluna status post 2 years of left index finger pain with POP joint edema. He was previously diagnosed with osteomyelitis of the joint and underwent IV antibiotic course (also for MSSA bacteremia/endocarditis). While in the office today the patient reports ongoing edema in the index finger for 1-2 years, since 5245-3216. He claims the finger with swell on its own. He states he originally thought it was due to spider bite. He states the index finger causes him a lot of pain and this limits his ROM. He reports intermittent numbness and tingling through out the entire digit. Patient confirms having an infections in his heart, which he feels causes his finger to swell. Patient has a significant medical history of Opioid and alcohol use disorder on Methadone, Hepatitis C complicated by decompensated cirrhosis. Patient is currently on anticoagulation. Patient has no known allergy history. Patient is currently taking, as follows: -Acetaminophen 650 mg PO Q6H PRN -Albuterol sulfate 90 mcg/acutation 2 puffs inhalation Q6H PRN -Gabapentin 100 mg PO TID -Methadone 40 mg PO daily -Nafcillin 2 grams IV Q4H -Nicotine 21 mg transdermal daily -Rivaroxaban 20 mg PO daily -Spironolactone 25 mg PO daily Patient has a medical history, as follows: -Right-sided heart failure -Acute respiratory failure -History of endocarditis -Hyperbilirubinemia -Acute kidney injury -History of sepsis -Pulmonary embolism; 11/2020 -Hypoxia -Poly-substance abuse -Leukocytosis -Opioid use disorder, severe, dependence -Liver steatosis -Hepatitis C Virus -Tricuspid valve stenosis -Anasarca -MSSA bacteremia Patient has a surgical history, as follows: -History of tricuspid valve replacement with bioprosthetic valve Patient has a social history, as follows: -Alcohol; former -Tobacco 20 cigarettes per day; 10 years of smoking -Substance use--Marijuana Imaging and case was reviewed with Dr. Etienne who was available to see the patient with me while in the office today and a collaborative treatment plan was made. Our first step would be to perform and irrigation and debridement of the left index finger PIP joint. The culture will be sent for further identification. This is to identified if the osteomyelitis has been eradicated with prior antibiotic use. We will await culture to determine this, should the cultures determine that there is no active infection, the next step would be to perform an arthrodesis of the left index finger. This would allow for stabilization of the PIP and to assist with his pain. He understands and accepts. He will need cardiac clearance as he has a significant cardiac history for endocarditis, tricuspid valve replacement and is currently on Xarelto. The patient reports that he had a prior history of IV drug abuse. He reports attending a program and was clean for 9 months. He confirms relapsing in 03/2023 and confirms attending another program. He reports he has been clean ever since. X-rays of the left hand which were obtained while in the office today and were reviewed by me, Ruth Ann Ruggiero PA-C, revealed osteomyelitis left index finger at the PIP. Orders: Orders XR hand LT min 3V Today M79.643 - Pain in unspecified hand Patient Instructions: Scribed for Ruth Ann Ruggiero PA-C by Elayne Nino director medical surgical, on 11/03/2023 at 8:36 am, EST. Coding Level of Care Code New Pt Level 4 (99263) Diagnoses Osteomyelitis of left hand, unspecified type M86.9 Osteomyelitis type: unspecified type Substance abuse F19.10
[2023-11-03 08:48] VITALS: BMI 28.0
== END 2023-11-03 09:15 | disposition home or self-care (01) ==
PROVIDERS: Visit Provider Physician Assistant
DX: M86.142 Other acute osteomyelitis, left hand (principal); F19.10 Other psychoactive substance abuse, uncomplicated
CPT/HCPCS: 99204

== ENCOUNTER 2023-11-03 09:25 | Outpatient (REF) | payer MEDICAID, SELFPAY ==
--- NOTE | ~2023-11-03 | XR_ITS ---
EXAMINATION: XR HAND, LEFT CLINICAL INFORMATION: Hand pain COMPARISON: None available. TECHNIQUE: PA, lateral, and oblique views of the left hand. FINDINGS: Erosive changes involving the second proximal interphalangeal joint with surrounding soft tissue swelling. No acute fracture. XR/XR hand LT min 3V IMPRESSION: Erosive changes involving the second proximal interphalangeal joint with surrounding soft tissue swelling. Findings are concerning for septic arthritis versus osteomyelitis. The report will be called to the ordering clinician by a [facility] Physician Pot Room Tapper.
== END 2023-11-03 09:26 | disposition home or self-care (01) ==
LOC: HO.HOSX 09:25
PROVIDERS: Visit Provider Physician Assistant
DX: M79.642 Pain in left hand (principal); M86.9 Osteomyelitis, unspecified; F19.10 Other psychoactive substance abuse, uncomplicated
CPT/HCPCS: 73130; 99212

== ENCOUNTER 2024-03-30 17:03 | Inpatient (IN) | payer MEDICAID, SELFPAY ==
--- NOTE | 2024-03-30 | ECG_ITS ---
Test Reason : CHEST PAIN Blood Pressure : / mmHG Vent. Rate : 073 BPM Atrial Rate : 073 BPM P-R Int : 150 ms QRS Dur : 102 ms QT Int : 520 ms P-R-T Axes : 005 052 070 degrees QTc Int : 572 ms Normal sinus rhythm Incomplete right bundle branch block T wave abnormality, consider anterolateral ischemia Prolonged QT Abnormal ECG When compared with ECG of 16-MAR-2023 16:37, Vent. rate has decreased BY 45 BPM anterior T inversion more prominent Referred By: Generic ED Physician Electronically Signed By:VIOLET SULLIVAN
--- NOTE | ~2024-03-30 | XR_ITS ---
EXAMINATION: Chest x-ray CLINICAL INFORMATION: [id number] Norberto Marquez date of 1990 Chest pain COMPARISON: Previous chest x-ray February 2023 TECHNIQUE: 1 view chest FINDINGS: There are median sternotomy wires and plates and screws. The cardiac and mediastinal contours are stable. The lungs are clear. No pleural effusion or pneumothorax. XR/XR chest 1V IMPRESSION: No evidence for acute disease in the chest.
--- NOTE | ~2024-03-30 | CT_ITS ---
EXAMINATION: CT ANGIOGRAM OF THE CHEST WITH AND WITHOUT CONTRAST (CT PULMONARY ANGIOGRAM FOR PE) CLINICAL INFORMATION: Reason for Exam Hx of PE, CP, SOB. Elevated d-dimer COMPARISON: CT chest 03/02/[address] angiogram chest 08/02/2022 TECHNIQUE: Prior to contrast administration, noncontrast localization images were obtained. Subsequently, multidetector volumetric imaging was performed from the thoracic inlet to below the diaphragms following the administration of 60 mL Omnipaque 350 intravenous contrast. No contrast reaction reported Sagittal, coronal, and MIP oblique sagittal reformatted images were obtained on the CT workstation, uploaded to PACS, and reviewed. This CT examination was performed using dose optimization techniques as appropriate, variously including the following: *Automated exposure control *Adjustment of mA and/or kV according to patient size (this includes techniques or standardized protocols for targeted exams where dose is matched to indication/reason for exam; i.e. extremities or head) *Use of iterative reconstruction technique Total exam dose-length product 242 mGy-cm FINDINGS: QUALITY OF STUDY/CONTRAST BOLUS: Bolus is satisfactory but there is marked motion artifact especially at the lung bases. PULMONARY ARTERIES: No central or large segmental emboli are seen. Evaluation of basilar vessels more distal to this is limited secondary to marked motion artifact. THORACIC AORTA: No aneurysm. LUNG: Emphysematous changes are seen along with bronchial thickening. No focal consolidation, nodules or masses. PLEURA: No pleural effusion or pneumothorax. MEDIASTINUM: The heart is enlarged. No pericardial effusion. No hilar or mediastinal lymphadenopathy. No evidence of septal bowing or right heart strain. Epicardial pacer leads are present. CORONARY ARTERY CALCIFICATION: None visualized on this study. CHEST WALL/AXILLA: No axillary or internal mammary lymphadenopathy. OSSEOUS STRUCTURES: No acute or suspicious osseous abnormality. UPPER ABDOMEN: Ascites is present. There is reflux of contrast into the hepatic veins suggesting elevated right heart pressures. CT/CT angio chest PE protocol IMPRESSION: 1. No evidence of pulmonary emboli. 2. Cardiomegaly with reflux of contrast into the hepatic veins suggesting elevated right heart pressures. 3. Other incidental findings described above including ascites.
[2024-03-30 17:10] VITALS: BP 105/60; PULSE 80; O2SAT 97
[2024-03-30 17:29] VITALS: BP 94/55; PULSE 73; RESP 12; TEMP 36.3; O2SAT 94; BMI 23.6
--- NOTE | 2024-03-30 17:50 | ED_ITS ---
HPI - Chest Pain General Chief Complaint: Chest Pain Stated Complaint: chest pain x1wk, hc valve replacement,use of drugs Time Seen by Provider: 03/30/24 17:13 History of Present Illness ED Provider: Dr. Peters HPI narrative: 33 y/o M patient; PMH bacteremia MSSA with endocarditis, PE on Xarelto, tricupsid valve replacement, IV polysubstance abuse, hepatitis C; presents reporting two weeks of pleuritic chest pain. He states he used crack cocaine two hours prior to arrival and believes it wasn't a good batch . He also did Fentanyl and Dope IV. He otherwise denies: nausea/vomiting, fever or chills, SOB, cough/congestion, syncope. History is limited at this time due to patient's difficulty staying awake. Related Data Home Medications ?Medication ?Instructions ?Recorded ?Confirmed acetaminophen 325 mg capsule 650 mg PO Q6H PRN 04/13/23 albuterol sulfate 90 mcg/actuation 2 puff inhalation Q6H PRN 04/13/23 aerosol inhaler gabapentin 100 mg capsule 100 mg PO TID 04/13/23 Previous Rx's ?Medication ?Instructions ?Recorded rivaroxaban 20 mg tablet (Xarelto) 20 mg PO DAILY #30 tabs 08/02/22 methadone 10 mg/mL oral 40 mg (4 mL) PO DAILY #4 mL 03/20/23 concentrate (Methadose) nafcillin 2 gram solution for 2 g IV Q4H 26 days #1 ea 03/20/23 injection nicotine 21 mg/24 hr daily 21 mg transdermal DAILY #30 ea 03/20/23 transdermal patch spironolactone 25 mg tablet 25 mg PO DAILY 30 days #30 tabs 03/23/23 Allergies Allergy/AdvReac Type Severity Reaction Status Date / Time No Known Allergies Allergy Verified 03/30/24 17:30 [No Known Allergies*] Review of Systems 2 Review of Systems: Yes Unobtainable due to mental status PMFSH Past Medical History Attestation statement: The following information was validated with the patient. Source: old records reviewed Medical History Substance abuse MSSA bacteremia Opioid use disorder, severe, dependence Bacteremia Bacteremia Right heart failure Steatosis, liver Tricuspid valve stenosis Anasarca HCV (hepatitis C virus) Endocarditis Pulmonary embolism Surgical History History of tricuspid valve replacement with bioprosthetic valve Social History Social History Household Members: None Household Members Other:: none. homeless Housing: Homeless Do you presently have visiting nurse or other home services: No Unable to assess alcohol history related to: Unknown Alcohol intake: former Patient Tobacco Use Status: Tobacco use Unknown Tobacco use type: Cigarette Cigarette Packs Per Day: 1 Cigarettes Per Day: 20.0 Years Smoked: 10 Smoked in Last 30 Days: Yes Second Hand Smoke Exposure: No Use of substances other than those prescribed or required for medical reasons: Yes Substance Use Type: Crack/Cocaine and Marijuana Substance Use Frequency: Chronic Longstanding Last Used Substance: Hours (ago) Advance Directives: Yes Advance Directives on File: Yes Advance Directives Date on File: 04/16/21 Do you have a plan to hurt others: No Plan service: No Current occupational status: unemployed Physical Exam 2 Vital Signs: Vital Signs: Last Vital Signs Temp 98.4 F 03/30/24 18:36 Pulse 60 03/30/24 18:36 Resp 14 03/30/24 18:36 BP 90/51 L 03/30/24 18:36 Pulse Ox 100 03/30/24 18:36 O2 Del Method Room Air 03/30/24 18:36 BMI result Body Mass Index 23.6 Patient is afebrile and hemodynamically stable Const: General: lethargic Orientation/consciousness: patient oriented x3 and lethargic HEENT: Head: Yes normal to inspection and Yes atraumatic Eyes: General: appearance normal, both eyes and all related structures P upils: Equal, round and reactive pupils present EOM: EOMs intact bilaterally Neck: Neck: Yes normal visual inspection, Yes full ROM, Yes supple and No tender Chest: Chest palpation & inspection: normal inspection of the chest and normal palpation of entire chest wall Resp: Effort & Inspection: normal respiratory effort, able to speak in complete sentences and no respiratory distress Auscultation: clear to auscultation bilaterally Cardio: Rate: regular rate Rhythm: regular rhythm Peripheral pulses: P eripheral pulses 2+ throughout GI: Inspection: Yes normal to inspection, No Abdominal wall edema and No distended Palpation (GI): Soft to palpation, not firm, nontender, no guarding and not rigid Auscultation: normal bowel sounds Neuro: General: patient oriented x3 Cranial nerves: Yes Equal, round and reactive pupils present Course Course Course Narrative: Patient is afebrile and hemodynamically stable. Will obtain cardiac laboratory studies, EKG, CXR. EKG with QTc 572. V1 - V5 T wave abnormalities, new since 03/12/2023. EKG discussed with Cardiology. Recommended trending troponins. Initial troponin 7.3. Ethanol negative. Potassium 3.1, repleting with IV potassium. Magnesium 1.6, repleted. Patient with persistent low normal BP. Providing 1L IVF. Obtaining blood cultures x2 and lactic acid. LA 1.0. CXR unremarkable. Plan: Admit to hospitalist for cardiac evaluation Condition: Stable Medical Decision Making Lab Data 03/30/24 17:48 03/30/24 17:48 Labs: Lab Results 03/30/24 03/30/24 03/30/24 Range/Units 17:48 19:36 19:43 WBC 12.5 H (4.8-10.8) X10*3/uL RBC 4.40 L D (4.60-5.80) X10*6/uL Hgb 12.6 L (14.0-18.0) g/dl Hct 36.3 L (42.0-52.0) % MCV 82.5 (80.0-98.0) fL MCH 28.6 (27.0-33.0) pg MCHC 34.7 (31.0-36.0) g/dl RDW 16.8 H (11.0-16.0) % Plt Count 215 D (160-400) X10*3/uL MPV 10.3 (9.4-12.4) fL Immature Gran % (Auto) 1.6 H (0.0-0.4) % Neut % (Auto) 71.8 (45-73) % Lymph % (Auto) 15.7 L (20-40) % [place] % (Auto) 9.9 (2-11) % Eos % (Auto) 0.4 (0-4) % Baso % (Auto) 0.6 (0-2) % Lymph # (Auto) 2.0 (1.2-4.9) X10*3/uL [place] # (Auto) 1.2 (0.1-1.2) X10*3/uL Eos # (Auto) 0.1 (0.0-0.4) X10*3/uL Baso # (Auto) 0.1 (0.0-0.2) X10*3/uL Abs Immat Gran (auto) 0.20 H (0.00-0.03) X10*3/uL Absolute Neuts (auto) 9.0 H (2.0-8.3) x10*3/uL Absolute Nucleated RBC 0.000 (0.0-0.012) X10*3/uL Nucleated RBC % (auto) 0.0 (0.0-0.2) /100WBC Sodium 137 (135-145) mmol/L Potassium 3.1 L (3.3-5.1) mmol/L Chloride 108 (96-108) mmol/L Carbon Dioxide 17 L (22-29) mmol/L Anion Gap 15 (12-20) BUN 16 (9-16) mg/dL Creatinine 1.30 (0.5-1.4) mg/dL Estim Creat Clear Calc 79.3 Estimated GFR > 60 Random Glucose 121 H (60-115) mg/dL Lactic Acid 1.0 (0.5-2.0) mmol/L Calcium 8.7 D (8.4-10.2) mg/dL Magnesium 1.6 (1.6-2.6) mg/dL Total Bilirubin 2.1 H (0.0-1.0) mg/dL AST 75 H (5-37) U/L ALT 40 (0-40) U/L Alkaline Phosphatase 195 H (39-117) U/L Troponin I High Sens 7.3 (<3.5-35.0) ng/L Total Protein 6.7 (6.5-8.0) g/dL Albumin 3.4 L (3.5-5.0) g/dL Ethyl Alcohol < 10 mg/dL Independent Interpretation I performed an independent interpretation of an: EKG Interpretation: NSR 73BPM with QTc 572, W ave abnormalities in leads V1 - V5. New compared to 02/2023. Discharge Plan Discharge Clinical Impression: Active intravenous drug use, Chest pain, Abnormal ECG Patient Disposition: Still a Patient Prescriptions: No Action Xarelto 20 mg Tablet 20 mg PO DAILY Qty: 30 0RF Rx Instructions: must administer with evening meal nafcillin 2 gram Recon Soln 2 g IV Q4H 26 Days Qty: 1 0RF nicotine 21 mg/24 hr Patch 24 Hour 21 mg transdermal DAILY Qty: 30 0RF methadone [Methadose] 10 mg/mL Concentrate 40 mg PO DAILY Qty: 4 0RF Rx Instructions: Partial Fill upon patient request. spironolactone 25 mg Tablet 25 mg PO DAILY 30 Days Qty: 30 0RF Protocol: Hold for SBP< HOLD for SBP < : 90 albuterol sulfate 90 mcg/actuation HFA aerosol inhaler 2 puff inhalation Q6H PRN gabapentin 100 mg capsule 100 mg PO TID acetaminophen 325 mg capsule 650 mg PO Q6H PRN Print Language: Tunisian
[2024-03-30 18:03] LABS: MANUAL DIFF FLAG NO
[2024-03-30 18:22] LABS: Basophils Absolute Auto 0.1 X10*3/uL (0.0-0.2); Basophils Percent Auto 0.6 % (0-2); Eosinophils Absolute Auto 0.1 X10*3/uL (0.0-0.4); Eosinophils Percent Auto 0.4 % (0-4); Hematocrit 36.3 % (42.0-52.0); Hemoglobin 12.6 g/dl (14.0-18.0); Imm Gran Pct Auto 1.6 % (0.0-0.4); Lymphocytes Percent Auto 15.7 % (20-40); Mean Corpuscular HGB Conc 34.7 g/dl (31.0-36.0); Mean Corpuscular Hemoglobin 28.6 pg (27.0-33.0); Mean Corpuscular Volume 82.5 fL (80.0-98.0); Mean Platelet Volume 10.3 fL (9.4-12.4); Monocytes Absolute Auto 1.2 X10*3/uL (0.1-1.2); Monocytes Percent Auto 9.9 % (2-11); Neutrophils Percent Auto 71.8 % (45-73); Platelet Count 215 X10*3/uL (160-400); Red Cell Distribution Width 16.8 % (11.0-16.0); White Blood Count 12.5 X10*3/uL (4.8-10.8)
[2024-03-30 18:24] LABS: Alanine Aminotransferase 40 U/L (0-40); Albumin Level 3.4 g/dL (3.5-5.0); Alkaline Phosphatase 195 U/L (39-117); Anion Gap 15 (12-20); Aspartate Amino Transferase 75 U/L (5-37); Bilirubin Total 2.1 mg/dL (0.0-1.0); Blood Urea Nitrogen 16 mg/dL (9-16); Calcium 8.7 mg/dL (8.4-10.2); Carbon Dioxide 17 mmol/L (22-29); Chloride 108 mmol/L (96-108); Creatinine Clr Calc Pharmacy 79.3; Estimated Glomerular Filt Rate > 60; Ethanol < 10 mg/dL; Glucose Random 121 mg/dL (60-115); Potassium 3.1 mmol/L (3.3-5.1); Sodium 137 mmol/L (135-145); Total Protein 6.7 g/dL (6.5-8.0)
[2024-03-30 18:30] LABS: Troponin-I High Sensitivity 7.3 ng/L (<3.5-35.0)
[2024-03-30 18:36] VITALS: BP 90/51; PULSE 60; RESP 14; TEMP 36.9; O2SAT 100
[2024-03-30 20:04] LABS: Magnesium 1.6 mg/dL (1.6-2.6)
[2024-03-30] MEDS: Potassium Chloride/H20 10 MEQ/100 ML PIGGYBACK 100 MEQ IV ×2 (20:37→21:54)
[2024-03-30] MEDS: 0.9 % Sodium Chloride 1,000 ML 999 ML IV (20:37)
[2024-03-30 20:48] LABS: D Dimer High Sensitivity 824 NG/ML
[2024-03-30] MEDS: Magnesium Sulfate/H2O 2 GM/50 ML PIGGYBACK IV (20:50)
--- NOTE | 2024-03-30 20:53 | PC.NURSE ---
this rn assumed care of pt, pt a&ox4, respirations even and unlabored, pt noted to be lethargic at this time but awakens to name, pt reports using marijuana prior to arrival to the ED. pt denies pain at this time. pt medicated per dec.
[2024-03-30 20:57] LABS: Troponin-I High Sensitivity 6.2 ng/L (<3.5-35.0)
--- NOTE | 2024-03-30 21:17 | PHA.MEDREC ---
Pharmacy Consult ? Medication Reconciliation Pharmacy has completed the medication reconciliation.Patient unable to provide any history. Mostly unarousable when attempting to interview. Spoke to patients mother who did not know much about his medications, she knew about xarelto, and something for high blood pressure. Pharmacy has claim history and put in recently filled medications. Mother believes he has been non compliant and is currently homeless.
--- NOTE | 2024-03-30 22:24 | P.HPHOSP_ITS ---
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 HPI was difficult to obtain appropriately of the patient's seems to be currently intoxicated. However he was able to tell me that he has been having chest pain for the last 2 weeks but has been getting worse. He localizes the pain in the middle of his chest and increased with deep inspiration. He also complained of shortness on breath. He did not report cough. He admitted that he has not been taking his medication for the last week and a half. Denies tobacco smoking or alcohol abuse. He told ED staff that he feels that he got a bad batch of drugs. He denied abdominal pain, nausea or vomiting. In the ED, he was found to have low normal blood pressure slight tachycardia. Most recent heart rate is 60. Oxygen saturation 100% on room air. Blood workup was remarkable for leukocytosis of 12.5, hemoglobin of 12.6 and normal platelets. D-dimer is elevated 124. Troponin is 7.3 on 6.2. There is mild hyponatremia, 3.1. CXR is negative. ECG showed normal sinus rhythm with a heart rate of 73 beats per minutes. There is incomplete right bundle branch block and prolonged QTC = 572 millisecond. ED tx: KCL IV, NS 1 L bolus, magnesium sulfate 2 g IV. Review of Systems 2 Review of Systems: Yes Unobtainable due to mental condition FORMERLY [facility], [facility]–1983 Medical History Substance abuse MSSA bacteremia Opioid use disorder, severe, dependence Bacteremia Bacteremia Right heart failure Steatosis, liver Tricuspid valve stenosis Anasarca HCV (hepatitis C virus) Endocarditis Pulmonary embolism Surgical History History of tricuspid valve replacement with bioprosthetic valve Social History Household Members: None Household Members Other:: none. homeless Housing: Homeless Do you presently have visiting nurse or other home services: No Unable to assess alcohol history related to: Unknown Alcohol intake: former Patient Tobacco Use Status: Tobacco use Unknown Tobacco use type: Cigarette Cigarette Packs Per Day: 1 Cigarettes Per Day: 20.0 Years Smoked: 10 Smoked in Last 30 Days: Yes Second Hand Smoke Exposure: No Use of substances other than those prescribed or required for medical reasons: Yes Substance Use Type: Crack/Cocaine and Marijuana Substance Use Frequency: Chronic Longstanding Last Used Substance: Hours (ago) Advance Directives: Yes Advance Directives on File: Yes Advance Directives Date on File: 04/16/21 Do you have a plan to hurt others: No Plan service: No Current occupational status: unemployed Meds Allergies Allergy/AdvReac Type Severity Reaction Status Date / Time No Known Allergies Allergy Verified 03/30/24 17:30 [No Known Allergies*] Active Medications: Current Medications Acetaminophen (Acetaminophen 325 Mg Tablet) 975 mg PO Q6H PRN PRN Reason: mild pain, headache or fever Rivaroxaban (Rivaroxaban 10 Mg Tablet) 10 mg PO DAILY [facility] Sodium Chloride (0.9 % Sodium Chloride Flush 3 Ml Syringe) [facility] Medications ?Medication ?Instructions ?Recorded ?Confirmed ?Last Taken ?Type acetaminophen 325 mg capsule 650 mg PO Q6H PRN Pain (Scale 04/13/23 03/30/24 Unknown History Score 1-3) albuterol sulfate 90 mcg/actuation 2 puff inhalation Q6H PRN 04/13/23 03/30/24 Unknown History aerosol inhaler Respiratory Distress gabapentin 100 mg capsule 100 mg PO TID 04/13/23 Unknown History clonidine HCl 0.1 mg tablet 0.1 mg PO TID PRN Anxiety 03/30/24 03/30/24 Unknown History hydroxyzine HCl 50 mg tablet 50 mg PO TID PRN Anxiety 03/30/24 03/30/24 Unknown History Physical Exam 2 Vital Signs and Narrative: Vital Signs: Last Vital Signs Temp 98.4 F 03/30/24 18:36 Pulse 60 03/30/24 18:36 Resp 14 03/30/24 18:36 BP 90/51 L 03/30/24 18:36 Pulse Ox 100 03/30/24 18:36 O2 Del Method Room Air 03/30/24 18:36 BMI result Body Mass Index 23.6 Constitutional - Looks intoxicated. Able to answer simple questions. Looks uncomfortable. Cooperative. HEENT - atraumatic head, pupils equally round, normal sclerae. Heart - S1S2, RRR, positive murmur. Lungs - Normal lung expansion, Normal respiratory effort, No respiratory distress, CTA bilaterally Abdomen - NT / ND; +BS; No rebound or guarding Extremities - no calf tenderness bilaterally, no swelling Musculoskeletal - Normal inspection, normal ROM Skin - Warm/Dry. Multiple track tan in the upper extremities. Neurological - intoxicated. Focal weakness grossly noted. Normal speech. Psychological - Depressed affect Results Labs 03/30/24 17:48 03/30/24 17:48 Labs: Laboratory Results - last 24 hr 03/30/24 03/30/24 03/30/24 17:48 19:36 19:43 MCV 82.5 MCH 28.6 MCHC 34.7 RDW 16.8 H Plt Count 215 D MPV 10.3 Immature Gran % (Auto) 1.6 H Neut % (Auto) 71.8 Lymph % (Auto) 15.7 L Daniels % (Auto) 9.9 Eos % (Auto) 0.4 Baso % (Auto) 0.6 Lymph # (Auto) 2.0 Daniels # (Auto) 1.2 Eos # (Auto) 0.1 Baso # (Auto) 0.1 Abs Immat Gran (auto) 0.20 H Absolute Neuts (auto) 9.0 H Absolute Nucleated RBC 0.000 Nucleated RBC % (auto) 0.0 D-Dimer High Sensitivty Anion Gap 15 Estim Creat Clear Calc 79.3 Estimated GFR > 60 Random Glucose 121 H Lactic Acid 1.0 Calcium 8.7 D Magnesium 1.6 Total Bilirubin 2.1 H AST 75 H ALT 40 Alkaline Phosphatase 195 H Troponin I High Sens 7.3 Total Protein 6.7 Albumin 3.4 L Ethyl Alcohol < 10 03/30/24 20:32 MCV MCH MCHC RDW Plt Count MPV Immature Gran % (Auto) Neut % (Auto) Lymph % (Auto) Daniels % (Auto) Eos % (Auto) Baso % (Auto) Lymph # (Auto) Daniels # (Auto) Eos # (Auto) Baso # (Auto) Abs Immat Gran (auto) Absolute Neuts (auto) Absolute Nucleated RBC Nucleated RBC % (auto) D-Dimer High Sensitivty 824 Anion Gap Estim Creat Clear Calc Estimated GFR Random Glucose Lactic Acid Calcium Magnesium Total Bilirubin AST ALT Alkaline Phosphatase Troponin I High Sens 6.2 Total Protein Albumin Ethyl Alcohol Imaging Radiologist's Impressions: Impressions Chest X-Ray 03/30/24 19:55 IMPRESSION: No evidence for acute disease in the chest. Assessment and Plan (1) Chest pain: Qualifiers: Chest pain type: unspecified Qualified Code(s): R07.9 - Chest pain, unspecified Status: Acute (2) Active intravenous drug use: Status: Acute Plan Norberto Marquez he is a 33 y/o man admitted with: * Chest pain, pleuritic in nature. Elevated D-dimer. History of pulmonary embolism and noncompliant with Xarelto. Check CTA for PE stat. Doubt ACS. Telemetry. Pulse oximetry. Continue Xarelto. Cardiology consult obtained by ED. * IV drug use. Checks COWS. Supportive therapy for withdrawal symptoms with Atarax, Tylenol and Compazine. ?using methadone. Urine drug screen still pending. Addiction medicine consult. * Hypokalemia. Will replete as needed. Continue to monitor K level. * Dehydration. Continue IV fluids. * Chronic anemia. Continue to monitor * Hx of endocarditis, s/p tricuspid valve repair, prostatic 06/2020. * Chronic hep C infection. Code status: Full DVT prophylaxis: Xarelto Patient will need hospitalization for at least 2 midnights for pleuritic chest pain evaluation and treatment. 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 Quality Stroke Does the patient have a stroke diagnosis?: No VTE Prior VTE?: No VTE Risk Level:: Medical - moderate - high VTE Device Contraindication: Treatment Not Indicated VTE Drug Contraindication: N/A - Med Ordered
[2024-03-30 22:46] VITALS: PULSE 51
--- NOTE | 2024-03-30 23:12 | PC.NURSE ---
pt to CT at this time.
[2024-03-30] MEDS: Lactated Ringers 1,000 ML 999 ML IV (23:23)
[2024-03-30] MEDS: Lactated Ringers 1,000 ML 125 ML IVCONT (23:23)
[2024-03-30] MEDS: iohexoL 350 MG/ML 100 ML INFUS..BTL 65 ML IV (23:25)
--- NOTE | 2024-03-30 23:25 | PC.NURSE ---
pt returned from CT at this time, pt refusing vitals, pt requesting to leave AMA at this time. aware at this time.
--- NOTE | 2024-03-30 23:29 | MHC.EDTECH ---
pt refusing urine sample
--- NOTE | 2024-03-31 | ECG_ITS ---
Test Reason : chest pain Blood Pressure : / mmHG Vent. Rate : 057 BPM Atrial Rate : 057 BPM P-R Int : 088 ms QRS Dur : 144 ms QT Int : 602 ms P-R-T Axes : -23 -26 153 degrees QTc Int : 585 ms Undetermined rhythm , possibly junctional/low atrial vs idioventricular Left bundle branch block Abnormal ECG When compared with ECG of 30-MAR-2024 17:33, Rhythm change Referred By: Sherri Novak Electronically Signed By:VIOLET SULLIVAN
--- NOTE | 2024-03-31 01:04 | PC.NURSE ---
pt provided urine sample at this time, pt noted to have very dark colored urine at this time.
[2024-03-31 01:12] LABS: Appearance Urine Clear; Color Urine Dark Yellow; Glucose Urine UA Negative (Negative); Leukocyte Esterase Urine Negative (Negative); Nitrite Urine Negative (Negative); UMIC TRIGGER UACC YES; Urine Blood Moderate (2+) (Negative); Urine Ketones Negative (Negative); Urine Protein 30 (1+) mg/dL (Neg-Trace)
[2024-03-31 01:20] LABS: Bacteria Urine None Seen (None Seen); Calcium Oxalate Crystals Urine Present; Hyaline Casts Urine 0-2 /LPF (0-2); Squamous Epithelial Cell Urine 0-2 /HPF (0-2); WBC Urine 0-5 /HPF (0-5)
[2024-03-31 01:29] LABS: Amphetamine Screen Urine Not Detected (Not Detect); Barbiturates, Urine Not Detected (Not Detect); Benzodiazepines Screen Urine POSITIVE (Not Detect); Buprenorphine Scr Not Detected (Not Detect); Cannabinoid Screen Urine POSITIVE (Not Detect); Cocaine Screen Urine POSITIVE (Not Detect); Fentanyl, urine POSITIVE (Not Detect); Methadone Screen, Urine Positive (Not Detect); Opiate Screen Urine POSITIVE (Not Detect); Oxycodone Screen Urine Not Detected (Not Detect); Phencyclidine Screen Urine Not Detected (Not Detect)
--- NOTE | 2024-03-31 01:29 | PC.NURSE ---
at bedside, pt requesting to leave AMA, provider okayed, pt brought AMA form by provider, pt reports he can not leave because he is homeless and will have no where to go, pt reports he will remain admitted to the ED.
--- NOTE | 2024-03-31 02:03 | MHC.EDTECH ---
Pt refused EKG. Jahaira LEES aware.
--- NOTE | 2024-03-31 02:10 | PC.NURSE ---
aware of pt EKG refusal, okay to not obtain at this time. pt continues to refuse vital signs.
--- NOTE | 2024-03-31 04:39 | PC.NURSE ---
pt refused morning labs at this time, aware.
[2024-03-31 04:44] VITALS: BP 97/49; PULSE 54; RESP 18; TEMP 36.5; O2SAT 97
--- NOTE | 2024-03-31 07:00 | CA_ITS ---
Transthoracic Echocardiogram Patient (Last, First, Middle): Norberto Marquez, Gender: Male Date of : 1990 Age: 33 Procedure Date: 03/31/2024 Procedure Type: Transthoracic Echocardiogram Location: ER Height: 175.26 cm Weight: 72.58 kg BSA: 1.88 m2 Heart Rate: 56 bpm BP: 109 / 60 mmHg Car Body Mechanic: JURGEN Referring MD: Rafael Razo MD Symptoms: Hx of endocarditis, PE and chest pain Study Quality: Adequate ECG Rhythm: Bradycardia Conclusions: - The left ventricular systolic function is mildly decreased. The visually estimated ejection fraction is between 40-45%. - A bioprosthetic tricuspid valve is present. The prosthetic tricuspid valve appears to be functioning abnormally. Echo findings are consistent with stenosis of the tricuspid valve prosthesis. Findings Left Ventricle Normal left ventricular cavity size. There is mildly increased left ventricular wall thickness. The left ventricular systolic function is mildly decreased. The visually estimated ejection fraction is between 40-45%. There is no evidence of regional wall motion abnormalities. Diastolic function is normal for age. Right Ventricle Normal right ventricular cavity size. There is severely decreased right ventricular systolic function. Atria The left atrium is normal in size. The right atrium is moderately dilated. Aortic Valve There is a normal trileaflet aortic valve. There is no aortic valve stenosis. There is no aortic valve regurgitation. Mitral Valve The mitral valve appears normal. There is trace mitral valve regurgitation. There is no mitral valve stenosis. Pulmonic Valve The pulmonic valve is likely normal. Tricuspid Valve A bioprosthetic tricuspid valve is present. The prosthetic tricuspid valve appears to be functioning abnormally. Echo findings are consistent with stenosis of the tricuspid valve prosthesis. Gradients across the prosthetic tricuspid valve are abnormal. The right ventricular systolic pressure is not calculated. Mean gradient across the prosthetic tricuspid valve 11mm Hg (inaccurate HR). No overt tricuspid regurgitation, but difficult to assess. Prosthetic leaflets not well visualized. Great Vessels The asc aorta is normal in size. Venous The inferior vena cava is mildly dilated and collapses less than 50% with inspiration. Pericardium/Pleural There is no evidence of pericardial effusion. Prior Study Comparison No significant change compared to prior study dated: 03/03/2023. Measurements 2D Linear Measurements IVSd: 1.03 0.6-0.9/0.6-1.0 cm LVIDd: 4.73 3.9-5.3/4.2-5.9 cm LVIDd Index: 2.52 2.4-3.2/2.2-3.1 cm/m2 LVIDs: 3.18 2.0-3.6 cm LVPWd: 1.22 0.7-1.1 cm LA Diam: 3.90 2.7-3.8/3.0-4.0 cm LAIDs Index: 2.07 1.5-2.3 cm/m2 LV Mass: 243.61 67-162/88-224 g LV Mass Index: 129.58 43-95/49-115 g/m2 LVOT Diam: 2.30 3.0+(-)1.3 cm 2D Systolic Function EF 4C: 46.50 >55% Mitral Valve MV Pk E: 0.76 MV PK A: 0.36 MV Decel Time: 213.00 E/A: 2.10 E'Lateral: 7.51 E/E' Lat: 10.20 PHT: 62.00 MVA PHT: 3.55 Decel Storey: 3.59 Aortic Valve AoV Pk Dalton: 1.01 AoV Mn Dalton: 0.73 AoV VTI: 0.21 AoV Pk Grad: 4.00 Aov Mn Grad: 2.00 ISABELLA Cont.VTI: 4.29 LVOT LVOT Pk Dalton: 1.01 LVOT Mn Dalton: 0.70 LVOT VTI: 0.22 LVOT Pk Grad: 4.00 LVOT Mn Grad: 2.00 LVOT Diam: 2.30 LVOT Area: 4.15 Diastolic Function MV Pk E: 0.76 MV Pk A: 0.36 E/A: 2.10 E' Laterial: 7.51 E/E' Lat: 10.20 IVC Diam Insp: 1.57 IVC Diam Exp: 2.32 Right Ventricle TAPSE (mm): 5.50 TVS' Dalton: 8.20 Tricuspid Valve TV Pk Dalton: 2.04 TV Mn Dalton: 1.47 TV Pk Grad: 17.00 TV Mn Grad: 9.00 TR Pk Dalton: 1.66 TR Pk Grad: 11.00 RA Press: 8.00 RVSP: 19.00 IVC Diam Exp: 2.32 IVC Diam Insp: 1.57 Great Vessels Aorta Sinus of Valsalva: 3.60 2.0-3.5 cm Ao Asc: 3.20 2.1-3.4 cm Pulmonary Valve PV Pk Dalton: 0.81 Peak PV Grad: 3.00 Updated in Other Vendor System with Status of Final Kartik Perrin MD electronically signed on 03/31/2024 11:39:10 AM with status of Final
[2024-03-31] MEDS: Lactated Ringers 1,000 ML 125 ML IVCONT ×3 (07:14→22:06)
--- NOTE | 2024-03-31 07:50 | MHC.EDTECH ---
This pct attempted to do an EKG and patient was being aggressive and agitated and refused all care.RN Aware
--- NOTE | 2024-03-31 08:08 | PC.NURSE ---
Pt reports he wants to leave, adamant, wants to speak with provider. Admitting provider contacted
--- NOTE | 2024-03-31 08:24 | PC.NURSE ---
Pt having periods of increased agitation and aggression towards staff.
[2024-03-31] MEDS: Lactated Ringers 1,000 ML 999 ML IV (08:33)
[2024-03-31] MEDS: Nicotine 21 MG PATCH.TD24 TRANSDERMA (08:35)
[2024-03-31 08:37] VITALS: BP 78/50; PULSE 55; RESP 14
--- NOTE | 2024-03-31 08:51 | MHC.CM.PN ---
Patient is documented to be experiencing increased agitation and aggression; CM spoke with Mother/HCP/Brittany @ [phone]. Per Brittany, Patient is homeless. Patient's listed address is where Patient's Brother lives and it is not an option for Patient to stay with his Brother nor his Mother. Patient may benefit from a Recovery Team Consult; CM has initiated and will follow for dc planning. PCP is from [facility].Patient gets his Methadone from [facility] on [facility] in [place].
--- NOTE | 2024-03-31 09:00 | PC.NURSE ---
Rn able to redirect pt. Able to give meds and assess BP.
[2024-03-31 09:11] VITALS: BP 101/63; PULSE 70; RESP 16
--- NOTE | 2024-03-31 09:53 | PC.NURSE ---
Echo at bedside
--- NOTE | 2024-03-31 10:05 | PC.NURSE ---
Methadone verified with [facility]
--- NOTE | 2024-03-31 10:30 | MHC.RECOVRN ---
Addiction medicine consult received for IV substance use. Pt had presented to the ED reporting chest pain x 2 weeks, hx valve replacement, and substance use. Upon evaluation, pt admitted for evaluation and tx of chest pain. T/w met with pt in ED12 after pt expressed desire to conduct self directed discharge. Pt familiar with t/w from previous hospitalizations. Pt sitting in bed, eyes closed, easily wakes to voice. Pt expresses desire to discharge due to being hungry and not receiving enough food. Per RN, pt had been provided with breakfast. Pt states I've been up for 3 days smoking [cocaine] and now I'm back and I'm starving. Pt reports his chest feels like the infection is back and is aware of risks if he discharges from the hospital. Pt willing to stay and undergo more testing with adequate food. Pt provided with another breakfast, pt denies other questions or concerns. Will return to complete consult.
--- NOTE | 2024-03-31 11:12 | HE.PHANOTE ---
Re: Methadone Last dose verified at [facility] for methadone 90 mg daily. Last given 03/30/24 11:34.
--- NOTE | 2024-03-31 11:19 | PC.NURSE ---
Methadone late due to waiting for pharmacy
[2024-03-31] MEDS: methADONE HCl 20 MG/2 ML ORAL.CONC 90 MG PO (11:31)
--- NOTE | 2024-03-31 12:54 | HO.PM.IMPN ---
Subjective Subjective Date of Service: 03/31/24 Interval History: hungry/thirsty, hasn't eaten in 3d due to drug abuse BP low this AM, 78/50. Came up to 101/63 after IV fluids chest pain resolved Review of Systems Review of Systems: Yes all other systems are reviewed and are negative Physical Exam Vital Signs: Vital Signs: Last Vital Signs Temp 97.7 F 03/31/24 04:44 Pulse 70 03/31/24 09:11 Resp 16 03/31/24 09:11 BP 101/63 03/31/24 09:11 Pulse Ox 97 03/31/24 04:44 O2 Del Method Room Air 03/31/24 04:44 BMI result Body Mass Index 23.6 Gen: in no acute distress HEENT: sclera anicteric, moist mucus membranes Neck: supple Lungs: clear to auscultation bilaterally Heart: regular rate and rhythm, no murmurs Abd: soft, non-tender, non-distended Ext: no edema Skin: warm/well-perfused, multiple needle track tan Neuro: alert and oriented x3, no focal findings Psych: appropriate affect Objective Data Active Medications Acetaminophen (Acetaminophen 325 Mg Tablet) 975 mg PO Q6H PRN PRN Reason: mild pain, headache or fever Acetaminophen (Acetaminophen 325 Mg Tablet) 975 mg PO Q6H PRN PRN Reason: Pain, Severe (Pain Scale 7-10) Albuterol Sulfate (Albuterol Sulfate 90 Mcg 8 Gm Inhaler) 2 puff INHALE Q6H PRN PRN Reason: Respiratory Distress Diazepam (Diazepam 10 Mg/2 Ml Cartridge) 5 mg IVPUSH Q6H PRN PRN Reason: anxiety Lactated Ringer's (Lr) 1,000 mls @ 125 mls/hr IVCONT .Q8H [facility] [place] Last Admin: 03/31/24 07:14 Dose: 125 mls/hr Documented By: PRACHI Methadone HCl (Methadone Hcl 20 Mg/2 Ml Oral.Conc) 90 mg PO DAILY [facility] [place] Last Admin: 03/31/24 11:31 Dose: 90 mg Documented By: PRACHI Nicotine (Nicotine 21 Mg Patch.Td24) 21 mg TRANSDERMA DAILY [facility] Last Admin: 03/31/24 08:35 Dose: 21 mg Documented By: PRACHI Prochlorperazine Edisylate (Prochlorperazine Edisylate 10 Mg/2 Ml Vial) 5 mg IV Q4H PRN PRN Reason: Nausea and Vomiting Rivaroxaban (Rivaroxaban 20 Mg Tablet) 20 mg PO DAILY@1700 [facility] Sodium Chloride (0.9 % Sodium Chloride Flush 3 Ml Syringe) 3 ml IVFLUSH QSHIFT [facility] Last Admin: 03/31/24 07:22 Dose: Not Given Documented By: PRACIH Non-Admin Reason: IV Running Labs 03/30/24 17:48 03/30/24 17:48 Labs: Laboratory Results - last 24 hr 03/30/24 03/30/24 03/30/24 17:48 19:36 19:43 MCV 82.5 MCH 28.6 MCHC 34.7 RDW 16.8 H Plt Count 215 D MPV 10.3 Immature Gran % (Auto) 1.6 H Neut % (Auto) 71.8 Lymph % (Auto) 15.7 L [place] % (Auto) 9.9 Eos % (Auto) 0.4 Baso % (Auto) 0.6 Lymph # (Auto) 2.0 [place] # (Auto) 1.2 Eos # (Auto) 0.1 Baso # (Auto) 0.1 Abs Immat Gran (auto) 0.20 H Absolute Neuts (auto) 9.0 H Absolute Nucleated RBC 0.000 Nucleated RBC % (auto) 0.0 D-Dimer High Sensitivty Anion Gap 15 Estim Creat Clear Calc 79.3 Estimated GFR > 60 Random Glucose 121 H Lactic Acid 1.0 Calcium 8.7 D Magnesium 1.6 Total Bilirubin 2.1 H AST 75 H ALT 40 Alkaline Phosphatase 195 H Troponin I High Sens 7.3 Total Protein 6.7 Albumin 3.4 L Urine Color Urine Appearance Urine pH Ur Specific Likely Urine Protein Urine Glucose (UA) Urine Ketones Urine Blood Urine Nitrite Ur Leukocyte Esterase Urine RBC Urine WBC Ur Squamous Epith Cells Calcium Oxalate Crystal Urine Bacteria Hyaline Casts Urine Opiates Screen Ur Buprenorphine Scrn Ur Oxycodone Screen Urine Methadone Screen Urine Fentanyl Screen Ur Barbiturates Screen Ur Phencyclidine Scrn Ur Amphetamines Screen U Benzodiazepines Scrn Urine Cocaine Screen U Marijuana (THC) Screen Ethyl Alcohol < 10 03/30/24 03/31/24 20:32 01:05 MCV MCH MCHC RDW Plt Count MPV Immature Gran % (Auto) Neut % (Auto) Lymph % (Auto) [place] % (Auto) Eos % (Auto) Baso % (Auto) Lymph # (Auto) [place] # (Auto) Eos # (Auto) Baso # (Auto) Abs Immat Gran (auto) Absolute Neuts (auto) Absolute Nucleated RBC Nucleated RBC % (auto) D-Dimer High Sensitivty 824 Anion Gap Estim Creat Clear Calc Estimated GFR Random Glucose Lactic Acid Calcium Magnesium Total Bilirubin AST ALT Alkaline Phosphatase Troponin I High Sens 6.2 Total Protein Albumin Urine Color Dark Yellow Urine Appearance Clear Urine pH 6.0 Ur Specific Likely 1.020 Urine Protein 30 (1+) H Urine Glucose (UA) Negative Urine Ketones Negative Urine Blood Moderate (2+) H Urine Nitrite Negative Ur Leukocyte Esterase Negative Urine RBC 11-20 H Urine WBC 0-5 Ur Squamous Epith Cells 0-2 Calcium Oxalate Crystal Present Urine Bacteria None Seen Hyaline Casts 0-2 Urine Opiates Screen POSITIVE H Ur Buprenorphine Scrn Not Detected Ur Oxycodone Screen Not Detected Urine Methadone Screen Positive H Urine Fentanyl Screen POSITIVE H Ur Barbiturates Screen Not Detected Ur Phencyclidine Scrn Not Detected Ur Amphetamines Screen Not Detected U Benzodiazepines Scrn POSITIVE H Urine Cocaine Screen POSITIVE H U Marijuana (THC) Screen POSITIVE H Ethyl Alcohol Assessment and Plan (1) Chest pain: Status: Acute Assessment and Plan: d2 33yo M with hx IDU, endocarditis s/p prosthetic tricuspid valve Jun 2020, PE nonadherent with Xarelto, and chronic HCV brought in after found passed out/intoxicated, c/o 2 wk of pleuritic chest pain pleuritic chest pain - CT angio negative for recurrent PE - troponins flat - TTE without WMAs but shows: TTE 03/31/24: - The left ventricular systolic function is mildly decreased. The visually estimated ejection fraction is between 40-45%. - A bioprosthetic tricuspid valve is present. The prosthetic tricuspid valve appears to be functioning abnormally. Echo findings are consistent with stenosis of the tricuspid valve prosthesis. - will consult Cardiology hypoK - repleted, recheck pending QTc prolongation - given Mg, recheck EKG hx PE - resume rivaroxaban OUD - on methadone, monitor QTc carefully; Addiction Medicine consult - screen HIV/HBV chronic HCV - viral load pending VTE ppx - Xarelto dispo - TBD In my clinical judgment, the patient requires continued inpatient hospitalization for the following reasons: chest pain, QT monitoring Total time managing care of this patient today: 35 minutes. Quality Stroke Does the patient have a stroke diagnosis?: No VTE Prior VTE?: No VTE Risk Level:: Medical - moderate - high VTE Device Contraindication: Treatment Not Indicated VTE Drug Contraindication: N/A - Med Ordered
[2024-03-31 14:14] LABS: MANUAL DIFF FLAG NO
[2024-03-31 14:15] LABS: Basophils Absolute Auto 0.1 X10*3/uL (0.0-0.2); Basophils Percent Auto 0.6 % (0-2); Eosinophils Absolute Auto 0.5 X10*3/uL (0.0-0.4); Eosinophils Percent Auto 5.1 % (0-4); Hematocrit 38.4 % (42.0-52.0); Imm Gran Abs Auto 0.06 X10*3/uL (0.00-0.03); Imm Gran Pct Auto 0.7 % (0.0-0.4); Lymphocytes Absolute Auto 2.4 X10*3/uL (1.2-4.9); Lymphocytes Percent Auto 27.2 % (20-40); Mean Corpuscular HGB Conc 33.9 g/dl (31.0-36.0); Mean Corpuscular Hemoglobin 28.1 pg (27.0-33.0); Mean Corpuscular Volume 82.9 fL (80.0-98.0); Mean Platelet Volume 10.3 fL (9.4-12.4); Monocytes Absolute Auto 1.1 X10*3/uL (0.1-1.2); Monocytes Percent Auto 12.6 % (2-11); Neutrophils Absolute Auto 4.8 x10*3/uL (2.0-8.3); Neutrophils Percent Auto 53.8 % (45-73); Platelet Count 210 X10*3/uL (160-400); Red Blood Count 4.63 X10*6/uL (4.60-5.80); Red Cell Distribution Width 17.9 % (11.0-16.0)
[2024-03-31 14:42] LABS: Alanine Aminotransferase 33 U/L (0-40); Albumin Level 2.8 g/dL (3.5-5.0); Alkaline Phosphatase 182 U/L (39-117); Anion Gap 11 (12-20); Aspartate Amino Transferase 52 U/L (5-37); Bilirubin Total 1.5 mg/dL (0.0-1.0); Blood Urea Nitrogen 13 mg/dL (9-16); Calcium 8.3 mg/dL (8.4-10.2); Carbon Dioxide 21 mmol/L (22-29); Chloride 109 mmol/L (96-108); Creatinine Clr Calc Pharmacy 114.5; Estimated Glomerular Filt Rate > 60; Glucose Random 94 mg/dL (60-115); Magnesium 1.7 mg/dL (1.6-2.6); Sodium 138 mmol/L (135-145); Total Protein 5.7 g/dL (6.5-8.0)
[2024-03-31 14:44] VITALS: BP 107/63; PULSE 63; RESP 15; O2SAT 97
[2024-03-31 14:45] LABS: Potassium 2.9 mmol/L (3.3-5.1)
[2024-03-31] MEDS: Potassium Chloride ER 20 MEQ TAB.ER.PRT 40 MEQ PO (15:07)
[2024-03-31] MEDS: Potassium Chloride/H20 10 MEQ/100 ML PIGGYBACK 100 MEQ IV ×4 (15:08→18:33)
[2024-03-31] MEDS: Rivaroxaban 20 MG TABLET PO (16:19)
[2024-03-31 21:00] VITALS: BP 107/64; PULSE 88; RESP 17; TEMP 36.2; O2SAT 98
[2024-03-31 23:59] VITALS: BP 102/65; PULSE 67; RESP 20; TEMP 36.9; O2SAT 95
[2024-04-01] VITALS: PULSE 74
--- NOTE | 2024-04-01 | ECG_ITS ---
Test Reason : check QTc Blood Pressure : / mmHG Vent. Rate : 071 BPM Atrial Rate : 071 BPM P-R Int : 148 ms QRS Dur : 100 ms QT Int : 464 ms P-R-T Axes : 008 -07 025 degrees QTc Int : 504 ms Normal sinus rhythm Incomplete right bundle branch block Cannot rule out Inferior infarct , age undetermined T wave abnormality, consider anterior ischemia Prolonged QT Abnormal ECG When compared with ECG of 31-MAR-2024 13:14, Rhythm change Referred By: Violet Sullivan Electronically Signed By:VIOLET SULLIVAN
[2024-04-01 03:18] VITALS: BP 108/70; PULSE 72; RESP 20; TEMP 36.1; O2SAT 97
[2024-04-01] MEDS: Lactated Ringers 1,000 ML 125 ML IVCONT ×2 (05:36→06:50)
[2024-04-01 08:00] VITALS: BP 120/80; PULSE 80; RESP 20; TEMP 36.1; O2SAT 94
[2024-04-01 08:06] LABS: HBS Num1 32.86 mIU/mL (0-7.99); HBc Num1 0.13 S/CO (0.00-0.79); HBsAGNum1 0.32 S/CO (0.00-0.99); HIV AB/AG Nonreactive (Nonreactive); HIV Num 1 0.06 S/CO (0.00-0.99); Hepatitis B Core Antibody Nonreactive (Nonreactive); Hepatitis B Surface Antigen Negative (Negative); ~Hepatitis B Surface Antibody REACTIVE (Nonreactive)
[2024-04-01 08:27] LABS: B Type Natriuretic Peptide 231 pg/mL (<100)
[2024-04-01] MEDS: methADONE HCl 20 MG/2 ML ORAL.CONC 90 MG PO (10:16)
[2024-04-01] MEDS: Nicotine 21 MG PATCH.TD24 TRANSDERMA (10:16)
[2024-04-01] MEDS: 0.9 % Sodium Chloride Flush 3 ML SYRINGE IVFLUSH (10:17)
[2024-04-01 10:23] LABS: Anion Gap 7 (12-20); Blood Urea Nitrogen 18 mg/dL (9-16); Calcium 8.5 mg/dL (8.4-10.2); Carbon Dioxide 24 mmol/L (22-29); Chloride 112 mmol/L (96-108); Creatinine Clr Calc Pharmacy 113.3; Estimated Glomerular Filt Rate > 60; Glucose Random 94 mg/dL (60-115); Magnesium 1.5 mg/dL (1.6-2.6); Potassium 3.7 mmol/L (3.3-5.1); Sodium 139 mmol/L (135-145)
--- NOTE | 2024-04-01 10:48 | PM.CNCAR ---
History of Present Illness History of Present Illness Date of Service: 04/01/24 Chief complaint: Chest pain Narrative: This is a cardiology consultation regarding question of prosthetic tricuspid valve dysfunction. Prior [facility] records reviewed. Per cardiac surgery note, it seems that patient underwent a tricuspid valve replacement with bioprosthetic valve in 2019 for severe tricuspid regurgitation and MSSA endocarditis. There is history of cocaine use and he has still doing the same. In this context, patient is brought to the ER after he apparently passed out. Per H and P, he was apparently intoxicated. He had reported some chest pain that was worse with deep inspiration as well as some shortness of breath. He apparently told the ED staff that he got a bad batch of drugs. Any case, he was admitted for further care. Echocardiogram at shown elevated gradients across the prosthetic tricuspid valve. We are asked to see him for further evaluation. He states he is feeling fine. He does not really have any clear-cut symptoms at this time but continues to have on it of pain in the center of the chest. Uncertain etiology for that. Review of Systems Review of Systems: Yes all other systems are reviewed and are negative Constitutional: Constitutional: Reports as per HPI and Reports no additional constitutional complaints Eyes: Eyes: Reports as per HPI and Denies no additional eye complaints ENT: Denies system reviewed and no additional complaints, except as documented and Reports as per HPI Cardiovascular: Cardiovascular: Reports as per HPI, Reports no additional cardiovascular complaints, Denies acrocyanosis, Denies cool extremities, Reports chest pain, Denies leg edema, Denies lightheadedness, Denies palpitations and Denies dyspnea Respiratory: Respiratory: Reports as per HPI, Denies no additional respiratory complaints and Denies dyspnea Gastrointestinal: Gastrointestinal: Reports as per HPI and Denies no additional gastrointestinal complaints Genitourinary: Genitourinary: Reports no additional male genitourinary complaints and Reports as per HPI Musculoskeletal: Musculoskeletal: Reports no additional musculoskeletal complaints and Reports as per HPI Integumentary/Breasts: Skin/Breast: Reports system reviewed and no additional complaints, except as docu Neurologic: Reports system reviewed and no additional complaints, except as documented and Reports as per HPI Psychiatric: Psychiatric: Reports no additional psychiatric complaints and Reports as per HPI Endocrine: Endocrine: Reports no additional endocrine complaints, Reports as per HPI and Denies palpitations Hematologic/Lymphatic: Hematologic/Lymphatic: Reports no additional hematologic/lymphatic complaints and Reports as per HPI Allergic/Immunologic: Allergic/Immunologic: Reports no additional allergic/immunologic complaints and Reports as per HPI [facility] Past Medical History Medical History Substance abuse MSSA bacteremia Opioid use disorder, severe, dependence Bacteremia Bacteremia Right heart failure Steatosis, liver Tricuspid valve stenosis Anasarca HCV (hepatitis C virus) Endocarditis Pulmonary embolism Family History Pertinent family history: No pertinent family history Surgical History Surgical History History of tricuspid valve replacement with bioprosthetic valve Social History Social History Household Members: None Household Members Other:: none. homeless Housing: Homeless Do you presently have visiting nurse or other home services: No Unable to assess alcohol history related to: Unknown Alcohol intake: former Patient Tobacco Use Status: Tobacco use Unknown Tobacco use type: Cigarette Cigarette Packs Per Day: 1 Cigarettes Per Day: 20.0 Years Smoked: 10 Second Hand Smoke Exposure: No Substance Use Type: IV Drugs Advance Directives Date on File: 04/16/21 service: No Current occupational status: unemployed Meds Allergies Allergy/AdvReac Type Severity Reaction Status Date / Time No Known Allergies Allergy Verified 03/30/24 17:30 [No Known Allergies*] Active Medications: Current Medications Acetaminophen (Acetaminophen 325 Mg Tablet) 975 mg PO Q6H PRN PRN Reason: mild pain, headache or fever Acetaminophen (Acetaminophen 325 Mg Tablet) 975 mg PO Q6H PRN PRN Reason: Pain, Severe (Pain Scale 7-10) Albuterol Sulfate (Albuterol Sulfate 90 Mcg 8 Gm Inhaler) 2 puff INHALE Q6H PRN PRN Reason: Respiratory Distress Diazepam (Diazepam 10 Mg/2 Ml Cartridge) 5 mg IVPUSH Q6H PRN PRN Reason: anxiety Magnesium Sulfate (Magnesium Sulfate/H2o) 2 gm in 50 mls @ 25 mls/hr IV ONCE ONE Stop: 04/01/24 12:41 Methadone HCl (Methadone Hcl 20 Mg/2 Ml Oral.Conc) 90 mg PO DAILY [facility] Last Admin: 04/01/24 10:16 Dose: 90 mg Nicotine (Nicotine 21 Mg Patch.Td24) 21 mg TRANSDERMA DAILY [facility] Last Admin: 04/01/24 10:16 Dose: 21 mg Prochlorperazine Edisylate (Prochlorperazine Edisylate 10 Mg/2 Ml Vial) 5 mg IV Q4H PRN PRN Reason: Nausea and Vomiting Rivaroxaban (Rivaroxaban 20 Mg Tablet) 20 mg PO DAILY@1700 [facility] Last Admin: 03/31/24 16:19 Dose: 20 mg Sodium Chloride (0.9 % Sodium Chloride Flush 3 Ml Syringe) 3 ml IVFLUSH QSHIFT [facility] Last Admin: 04/01/24 10:17 Dose: 3 ml Home Medications ?Medication ?Instructions ?Recorded ?Confirmed ?Last Taken ?Type acetaminophen 325 mg capsule 650 mg PO Q6H PRN Pain (Scale 04/13/23 03/30/24 Unknown History Score 1-3) albuterol sulfate 90 mcg/actuation 2 puff inhalation Q6H PRN 04/13/23 03/30/24 Unknown History aerosol inhaler Respiratory Distress gabapentin 100 mg capsule 100 mg PO TID 04/13/23 Unknown History clonidine HCl 0.1 mg tablet 0.1 mg PO TID PRN Anxiety 03/30/24 03/30/24 Unknown History hydroxyzine HCl 50 mg tablet 50 mg PO TID PRN Anxiety 03/30/24 03/30/24 Unknown History methadone 10 mg/mL oral 90 mg PO DAILY 03/31/24 03/31/24 03/30/24 11:34 History concentrate (Methadose) Physical Exam Vital Signs: Vital Signs: Last Vital Signs Temp 97.0 F 04/01/24 08:00 Pulse 80 04/01/24 08:00 Resp 20 04/01/24 08:00 BP 120/80 04/01/24 08:00 Pulse Ox 94 04/01/24 08:00 O2 Del Method Room Air 04/01/24 08:00 BMI result Body Mass Index 23.6 Const: General: comfortable and no acute distress Orientation/consciousness: patient oriented x3 HEENT: Other: Unremarkable Head: Yes normal to inspection Neck: Neck: Yes normal visual inspection Chest: Chest palpation & inspection: normal inspection of the chest Resp: Auscultation: clear to auscultation bilaterally Cardio: Palpation: normal PMI Heart sounds: S1 normal heart sound present, S2 normal heart sound present, no gallops, Murmur heart sound present (Diastolic murmur in the left parasternal area) and no rubs GI: Palpation (GI): Soft to palpation Back/Spine/Pelvis: Other: unremarkable Skin: General skin exam: no rashes or lesions noted Neuro: General: patient oriented x3 Extrem: General: Yes normal to inspection Psych: Mental Status: mental status grossly normal Objective Labs and Meds 03/31/24 14:10 04/01/24 07:37 Lab results: Laboratory Results - last 24 hr 03/31/24 03/31/24 04/01/24 14:09 14:10 07:37 WBC 9.0 RBC 4.63 Hgb 13.0 L Hct 38.4 L MCV 82.9 MCH 28.1 MCHC 33.9 RDW 17.9 H Plt Count 210 MPV 10.3 Immature Gran % (Auto) 0.7 H Neut % (Auto) 53.8 Lymph % (Auto) 27.2 [place] % (Auto) 12.6 H Eos % (Auto) 5.1 H Baso % (Auto) 0.6 Lymph # (Auto) 2.4 [place] # (Auto) 1.1 Eos # (Auto) 0.5 H Baso # (Auto) 0.1 Abs Immat Gran (auto) 0.06 H Absolute Neuts (auto) 4.8 Absolute Nucleated RBC 0.000 Nucleated RBC % (auto) 0.0 Hold Purple Top SEE NOTE Sodium 138 139 Potassium 2.9 L* 3.7 D Chloride 109 H 112 H Carbon Dioxide 21 L 24 Anion Gap 11 L 7 L BUN 13 18 H Creatinine 0.90 0.91 Estim Creat Clear Calc 114.5 113.3 Estimated GFR > 60 > 60 Random Glucose 94 94 Calcium 8.3 L 8.5 Magnesium 1.7 1.5 L Total Bilirubin 1.5 H AST 52 H ALT 33 Alkaline Phosphatase 182 H B-Natriuretic Peptide 231 H Total Protein 5.7 L Albumin 2.8 L Hep Bs Antigen Negative Hep Bs Antibody REACTIVE Hep B Core Total Ab Nonreactive HIV 1&2 Ab/P24 Ag 4thGn Nonreactive ECG Interpretation: In the initial EKG, underlying rhythm is sinus with T inversions across the precordial leads. Corrected QT is prolonged at 572 milliseconds. In the repeat EKG, rhythm does not seem to be sinus. Not clear if it is like a low atrial rhythm versus others; there is also left bundle branch morphology. Assessment and Plan (1) Abnormal ECG: Status: Acute (2) Chest pain: Qualifiers: Chest pain type: unspecified Qualified Code(s): R07.9 - Chest pain, unspecified Status: Acute (3) Active intravenous drug use: Status: Acute (4) Substance abuse: Status: Acute (5) History of endocarditis: Status: Acute (6) Prosthetic valve malfunction: Status: Acute Plan In the echocardiogram, LVEF is diminished in the 40s. There is evidence of increased gradients across the tricuspid valve suggestion of stenosis. However, these findings are similar to previous study from last year. The initial EKG, there is T inversions across the precordial leads with QT prolongation. The T-wave changes have been seen before. He also has had prolonged QT as well in the past. The rhythm in the 2nd EKGs not very clear. Will need to repeat. Otherwise, tox screen is positive for methadone, fentanyl, opiates, benzos, cocaine, marijuana. Blood cultures so far negative. Overall, the issues mainly ongoing drug use which has been going on for years. The prosthetic valve dysfunction is also likely secondary to this as he could have had recurrent endocarditis involving the prosthetic valve. However, the gradients are not too different from before. In his current situation, he has not a candidate for any redo surgery. Mainly drug rehabilitation. We will repeat his EKG. Hopefully, the QT is improved. He also had electrolyte abnormalities including low potassium and magnesium. Will need to be corrected. Discussed with Dr. Novak. Procedures Date of Service Date of Service: 04/01/24
--- NOTE | 2024-04-01 10:50 | HO.PM.IMPN ---
Subjective Subjective Date of Service: 04/01/24 Interval History: c/o some chest pain tolerating diet BP improved Review of Systems Review of Systems: Yes all other systems are reviewed and are negative Physical Exam Vital Signs: Vital Signs: Last Vital Signs Temp 97.0 F 04/01/24 08:00 Pulse 80 04/01/24 08:00 Resp 20 04/01/24 08:00 BP 120/80 04/01/24 08:00 Pulse Ox 94 04/01/24 08:00 O2 Del Method Room Air 04/01/24 08:00 BMI result Body Mass Index 23.6 Gen: in no acute distress HEENT: sclera anicteric, moist mucus membranes Neck: supple Lungs: clear to auscultation bilaterally Heart: regular rate and rhythm, no murmurs Abd: soft, non-tender, non-distended Ext: no edema Skin: warm/well-perfused, multiple needle track tan Neuro: alert and oriented x3, no focal findings Psych: appropriate affect Objective Data Active Medications Acetaminophen (Acetaminophen 325 Mg Tablet) 975 mg PO Q6H PRN PRN Reason: mild pain, headache or fever Acetaminophen (Acetaminophen 325 Mg Tablet) 975 mg PO Q6H PRN PRN Reason: Pain, Severe (Pain Scale 7-10) Albuterol Sulfate (Albuterol Sulfate 90 Mcg 8 Gm Inhaler) 2 puff INHALE Q6H PRN PRN Reason: Respiratory Distress Diazepam (Diazepam 10 Mg/2 Ml Cartridge) 5 mg IVPUSH Q6H PRN PRN Reason: anxiety Magnesium Sulfate (Magnesium Sulfate/H2o) 2 gm in 50 mls @ 25 mls/hr IV ONCE ONE Stop: 04/01/24 12:41 Methadone HCl (Methadone Hcl 20 Mg/2 Ml Oral.Conc) 90 mg PO DAILY [facility] Last Admin: 04/01/24 10:16 Dose: 90 mg Documented By: KIRSTY Nicotine (Nicotine 21 Mg Patch.Td24) 21 mg TRANSDERMA DAILY [facility] Last Admin: 04/01/24 10:16 Dose: 21 mg Documented By: KIRSTY Prochlorperazine Edisylate (Prochlorperazine Edisylate 10 Mg/2 Ml Vial) 5 mg IV Q4H PRN PRN Reason: Nausea and Vomiting Rivaroxaban (Rivaroxaban 20 Mg Tablet) 20 mg PO DAILY@1700 [facility] Last Admin: 03/31/24 16:19 Dose: 20 mg Documented By: PRACHI Sodium Chloride (0.9 % Sodium Chloride Flush 3 Ml Syringe) 3 ml IVFLUSH QSHIFT [facility] Last Admin: 04/01/24 10:17 Dose: 3 ml Documented By: KIRSTY Labs 03/31/24 14:10 04/01/24 07:37 Labs: Laboratory Results - last 24 hr 03/31/24 03/31/24 04/01/24 14:09 14:10 07:37 MCV 82.9 MCH 28.1 MCHC 33.9 RDW 17.9 H Plt Count 210 MPV 10.3 Immature Gran % (Auto) 0.7 H Neut % (Auto) 53.8 Lymph % (Auto) 27.2 [place] % (Auto) 12.6 H Eos % (Auto) 5.1 H Baso % (Auto) 0.6 Lymph # (Auto) 2.4 [place] # (Auto) 1.1 Eos # (Auto) 0.5 H Baso # (Auto) 0.1 Abs Immat Gran (auto) 0.06 H Absolute Neuts (auto) 4.8 Absolute Nucleated RBC 0.000 Nucleated RBC % (auto) 0.0 Hold Purple Top SEE NOTE Anion Gap 11 L 7 L Estim Creat Clear Calc 114.5 113.3 Estimated GFR > 60 > 60 Random Glucose 94 94 Calcium 8.3 L 8.5 Magnesium 1.7 1.5 L Total Bilirubin 1.5 H AST 52 H ALT 33 Alkaline Phosphatase 182 H B-Natriuretic Peptide 231 H Total Protein 5.7 L Albumin 2.8 L Hep Bs Antigen Negative Hep Bs Antibody REACTIVE Hep B Core Total Ab Nonreactive HIV 1&2 Ab/P24 Ag 4thGn Nonreactive Microbiology Microbiology Results: Microbiology 03/30/24 19:43 Blood Culture - Preliminary Blood - Venous No growth after 24 hours. 03/30/24 19:36 Blood Culture - Preliminary Blood - Venous No growth after 24 hours. Assessment and Plan (1) Chest pain: Status: Acute Assessment and Plan: d3 33yo M with hx IDU, endocarditis s/p prosthetic tricuspid valve Jun 2020, PE nonadherent with Xarelto, and chronic HCV brought in after found passed out/intoxicated, c/o 2 wk of pleuritic chest pain pleuritic chest pain - CT angio negative for recurrent PE - troponins flat - TTE without WMAs but shows: TTE 03/31/24: - The left ventricular systolic function is mildly decreased. The visually estimated ejection fraction is between 40-45%. - A bioprosthetic tricuspid valve is present. The prosthetic tricuspid valve appears to be functioning abnormally. Echo findings are consistent with stenosis of the tricuspid valve prosthesis. - Cardiology consult pending hypoK - repleted hypoMg - replete + recheck level in AM QTc prolongation - recheck EKG; replete Mg; caution with methadone hx PE - resumed rivaroxaban OUD - on methadone, monitor QTc carefully; Addiction Medicine consult - HIV negative and HBV immune chronic HCV - viral load pending VTE ppx - Xarelto dispo - home vs inpt rehab In my clinical judgment, the patient requires continued inpatient hospitalization for the following reasons: chest pain, QT monitoring, hypoMg Total time managing care of this patient today: 35 minutes. Quality Stroke Does the patient have a stroke diagnosis?: No VTE Prior VTE?: No VTE Risk Level:: Medical - moderate - high VTE Device Contraindication: Treatment Not Indicated VTE Drug Contraindication: N/A - Med Ordered
[2024-04-01 11:24] VITALS: BP 122/80; PULSE 72; RESP 20; TEMP 36.1; O2SAT 96
[2024-04-01] MEDS: Magnesium Sulfate/H2O 2 GM/50 ML PIGGYBACK IV (12:56)
--- NOTE | 2024-04-01 14:14 | MHC.CM.PN ---
EMR REVIEWED, PT W/CHEST PAIN AND HOMELESS, UNABLE TO RETURN TO FAMILY WILL LIKELY NEED RETIREMENT PLACEMENT NOT YET MEDICALLY CLEARED FOR DC, CM WILL CONT TO FOLLOW DC NEEDS. PT DOES HAVE METH MAINT AT [facility] IN [place].
--- NOTE | 2024-04-01 14:28 | PM.DS ---
DS: Providers Provider Date of Service: 04/01/24 Date of admission: 03/30/24 20:22 Date of discharge: 04/01/24 Primary care physician: Nirali Lott NP Consults: 03/30/24 22:43 Addiction Medicine Routine Consulting Provider: Bree Moore Reason for consultation: IV drug use: Heroin Has provider been notified: No 03/31/24 12:57 Consult to Cardiology Routine Consulting Provider: [facility] Reason for consultation: stenosed TV prosthesis DS: Diagnosis Discharge Diagnosis (1) Abnormal ECG: Status: Acute (2) Chest pain: Status: Acute (3) Active intravenous drug use: Status: Acute (4) Substance abuse: Status: Acute (5) History of endocarditis: Status: Acute (6) Prosthetic valve malfunction: Status: Acute (7) Hypomagnesemia: Status: Acute (8) Hypokalemia: Status: Acute (9) Heart failure with mildly reduced ejection fraction: Status: Acute (10) Prolonged QT interval: Status: Acute (11) HCV (hepatitis C virus): Status: Acute DS: Summary Hospital Course Hospital Course: From the history and physical by the admitting hospitalist, Rafael Razo, 03/30/24: Norberto Marquez he is a 33 years old man with past medical history significant for ongoing IV drug use (heroin), endocarditis (tricuspid valve, 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 HPI was difficult to obtain appropriately of the patient's seems to be currently intoxicated. However he was able to tell me that he has been having chest pain for the last 2 weeks but has been getting worse. He localizes the pain in the middle of his chest and increased with deep inspiration. He also complained of shortness on breath. He did not report cough. He admitted that he has not been taking his medication for the last week and a half. Denies tobacco smoking or alcohol abuse. He told ED staff that he feels that he got a bad batch of drugs. He denied abdominal pain, nausea or vomiting. In the ED, he was found to have low normal blood pressure slight tachycardia. Most recent heart rate is 60. Oxygen saturation 100% on room air. Blood workup was remarkable for leukocytosis of 12.5, hemoglobin of 12.6 and normal platelets. D-dimer is elevated 124. Troponin is 7.3 on 6.2. There is mild hyponatremia, 3.1. CXR is negative. ECG showed normal sinus rhythm with a heart rate of 73 beats per minutes. There is incomplete right bundle branch block and prolonged QTC = 572 millisecond. ED tx: KCL IV, NS 1 L bolus, magnesium sulfate 2 g IV. 33yo M with hx IDU, endocarditis s/p prosthetic tricuspid valve Jun 2020, PE nonadherent with Xarelto, and chronic HCV who was brought in after found passed out/intoxicated. When he awoke, he complained of 2 wk of pleuritic chest pain. He was admitted to the telemetry unit. Hospital course by problem: pleuritic chest pain - CT angio negative for recurrent PE - troponins flat - TTE without WMAs but shows: TTE 03/31/24: - The left ventricular systolic function is mildly decreased. The visually estimated ejection fraction is between 40-45%. - A bioprosthetic tricuspid valve is present. The prosthetic tricuspid valve appears to be functioning abnormally. Echo findings are consistent with stenosis of the tricuspid valve prosthesis. - Cardiology consulted. Per Dr Cesia Perrin: In the echocardiogram, LVEF is diminished in the 40s. There is evidence of increased gradients across the tricuspid valve suggestion of stenosis. However, these findings are similar to previous study from last year. The initial EKG, there is T inversions across the precordial leads with QT prolongation. The T-wave changes have been seen before. He also has had prolonged QT as well in the past. The rhythm in the 2nd EKGs not very clear. Will need to repeat. Otherwise, tox screen is positive for methadone, fentanyl, opiates, benzos, cocaine, marijuana. Blood cultures so far negative. Overall, the issues mainly ongoing drug use which has been going on for years. The prosthetic valve dysfunction is also likely secondary to this as he could have had recurrent endocarditis involving the prosthetic valve. However, the gradients are not too different from before. In his current situation, he has not a candidate for any redo surgery. hypoK - repleted; repeat level on Thursday04/04/24 ordered hypoMg - started on magnesium oxide 400 mg bid; level on discharge 1.5; should recheck level on Thursday04/04/24 QTc prolongation - with K repletion, QTc improved to 504 ms OUD cocaine abuse - Addiction Medicine consulted; methadone resumed - HIV negative and HBV immune chronic HCV - viral load pending He was discharged home with instructions to continue his prior medications and follow up with his primary care doctor within 1-2 weeks. Outpatient cardiology referral should be considered. He was counseled to avoid drugs of abuse. Time Attestation Discharge Coordination Time (in mins): 40 Quality: Safe Use of Opioids Does Pt have an Active Cancer Diagnosis on the Problem List?: No Quality: Stroke Does the patient have a stroke diagnosis?: No Physical Exam Vital Signs: Vital Signs: Last Vital Signs Temp 96.9 F 04/01/24 11:24 Pulse 72 04/01/24 11:24 Resp 20 04/01/24 11:24 BP 122/80 04/01/24 11:24 Pulse Ox 96 04/01/24 11:24 O2 Del Method Room Air 04/01/24 11:24 BMI result Body Mass Index 23.6 Gen: in no acute distress HEENT: sclera anicteric, moist mucus membranes Neck: supple Lungs: clear to auscultation bilaterally Heart: regular rate and rhythm, diastolic murmur Abd: soft, non-tender, non-distended Ext: no edema Skin: warm/well-perfused, multiple needle tan Neuro: alert and oriented x3, no focal findings Psych: appropriate affect' DS: Data Data Completed and Pending Completed studies during hospitalization [Text1]: Laboratory Results WBC 9.0 X10*3/uL (4.8-10.8) 03/31/24 14:10 RBC 4.63 X10*6/uL (4.60-5.80) 03/31/24 14:10 Hgb 13.0 g/dl (14.0-18.0) L 03/31/24 14:10 Hct 38.4 % (42.0-52.0) L 03/31/24 14:10 MCV 82.9 fL (80.0-98.0) 03/31/24 14:10 MCH 28.1 pg (27.0-33.0) 03/31/24 14:10 MCHC 33.9 g/dl (31.0-36.0) 03/31/24 14:10 RDW 17.9 % (11.0-16.0) H 03/31/24 14:10 Plt Count 210 X10*3/uL (160-400) 03/31/24 14:10 MPV 10.3 fL (9.4-12.4) 03/31/24 14:10 Immature Gran % (Auto) 0.7 % (0.0-0.4) H 03/31/24 14:10 Neut % (Auto) 53.8 % (45-73) 03/31/24 14:10 Lymph % (Auto) 27.2 % (20-40) 03/31/24 14:10 [place] % (Auto) 12.6 % (2-11) H 03/31/24 14:10 Eos % (Auto) 5.1 % (0-4) H 03/31/24 14:10 Baso % (Auto) 0.6 % (0-2) 03/31/24 14:10 Lymph # (Auto) 2.4 X10*3/uL (1.2-4.9) 03/31/24 14:10 [place] # (Auto) 1.1 X10*3/uL (0.1-1.2) 03/31/24 14:10 Eos # (Auto) 0.5 X10*3/uL (0.0-0.4) H 03/31/24 14:10 Baso # (Auto) 0.1 X10*3/uL (0.0-0.2) 03/31/24 14:10 Abs Immat Gran (auto) 0.06 X10*3/uL (0.00-0.03) H 03/31/24 14:10 Absolute Neuts (auto) 4.8 x10*3/uL (2.0-8.3) 03/31/24 14:10 Absolute Nucleated RBC 0.000 X10*3/uL (0.0-0.012) 03/31/24 14:10 Nucleated RBC % (auto) 0.0 /100WBC (0.0-0.2) 03/31/24 14:10 Hold Purple Top SEE NOTE 04/01/24 07:37 D-Dimer High Sensitivty 824 NG/ML 03/30/24 20:32 Sodium 139 mmol/L (135-145) 04/01/24 07:37 Potassium 3.7 mmol/L (3.3-5.1) D 04/01/24 07:37 Chloride 112 mmol/L (96-108) H 04/01/24 07:37 Carbon Dioxide 24 mmol/L (22-29) 04/01/24 07:37 Anion Gap 7 (12-20) L 04/01/24 07:37 BUN 18 mg/dL (9-16) H 04/01/24 07:37 Creatinine 0.91 mg/dL (0.5-1.4) 04/01/24 07:37 Estim Creat Clear Calc 113.3 04/01/24 07:37 Estimated GFR > 60 04/01/24 07:37 Random Glucose 94 mg/dL (60-115) 04/01/24 07:37 Lactic Acid 1.0 mmol/L (0.5-2.0) 03/30/24 19:36 Calcium 8.5 mg/dL (8.4-10.2) 04/01/24 07:37 Magnesium 1.5 mg/dL (1.6-2.6) L 04/01/24 07:37 Total Bilirubin 1.5 mg/dL (0.0-1.0) H 03/31/24 14:09 AST 52 U/L (5-37) H 03/31/24 14:09 ALT 33 U/L (0-40) 03/31/24 14:09 Alkaline Phosphatase 182 U/L (39-117) H 03/31/24 14:09 Troponin I High Sens 6.2 ng/L (<3.5-35.0) 03/30/24 20:32 B-Natriuretic Peptide 231 pg/mL (<100) H 04/01/24 07:37 Total Protein 5.7 g/dL (6.5-8.0) L 03/31/24 14:09 Albumin 2.8 g/dL (3.5-5.0) L 03/31/24 14:09 Urine Color Dark Yellow 03/31/24 01:05 Urine Appearance Clear 03/31/24 01:05 Urine pH 6.0 (5.0-9.0) 03/31/24 01:05 Ur Specific [place] 1.020 (1.005-1.025) 03/31/24 01:05 Urine Protein 30 (1+) mg/dL (Neg-Trace) H 03/31/24 01:05 Urine Glucose (UA) Negative mg/dL (Negative) 03/31/24 01:05 Urine Ketones Negative mg/dL (Negative) 03/31/24 01:05 Urine Blood Moderate (2+) (Negative) H 03/31/24 01:05 Urine Nitrite Negative (Negative) 03/31/24 01:05 Ur Leukocyte Esterase Negative (Negative) 03/31/24 01:05 Urine RBC 11-20 /HPF (0-2) H 03/31/24 01:05 Urine WBC 0-5 /HPF (0-5) 03/31/24 01:05 Ur Squamous Epith Cells 0-2 /HPF (0-2) 03/31/24 01:05 Calcium Oxalate Crystal Present 03/31/24 01:05 Urine Bacteria None Seen (None Seen) 03/31/24 01:05 Hyaline Casts 0-2 /LPF (0-2) 03/31/24 01:05 Urine Opiates Screen POSITIVE (Not Detect) H 03/31/24 01:05 Ur Buprenorphine Scrn Not Detected ng/mL (Not Detect) 03/31/24 01:05 Ur Oxycodone Screen Not Detected ng/mL (Not Detect) 03/31/24 01:05 Urine Methadone Screen Positive ng/mL (Not Detect) H 03/31/24 01:05 Urine Fentanyl Screen POSITIVE (Not Detect) H 03/31/24 01:05 Ur Barbiturates Screen Not Detected (Not Detect) 03/31/24 01:05 Ur Phencyclidine Scrn Not Detected (Not Detect) 03/31/24 01:05 Ur Amphetamines Screen Not Detected (Not Detect) 03/31/24 01:05 U Benzodiazepines Scrn POSITIVE (Not Detect) H 03/31/24 01:05 Urine Cocaine Screen POSITIVE (Not Detect) H 03/31/24 01:05 U Marijuana (THC) Screen POSITIVE (Not Detect) H 03/31/24 01:05 Ethyl Alcohol < 10 mg/dL 03/30/24 17:48 Hep Bs Antigen Negative (Negative) 03/31/24 14:09 Hep Bs Antibody REACTIVE (Nonreactive) 03/31/24 14:09 Hep B Core Total Ab Nonreactive (Nonreactive) 03/31/24 14:09 HIV 1&2 Ab/P24 Ag 4thGn Nonreactive (Nonreactive) 03/31/24 14:09 Impressions Chest X-Ray 03/30/24 19:55 IMPRESSION: No evidence for acute disease in the chest. Chest CTA 03/30/24 23:26 IMPRESSION: 1. No evidence of pulmonary emboli. 2. Cardiomegaly with reflux of contrast into the hepatic veins suggesting elevated right heart pressures. 3. Other incidental findings described above including ascites. Discharge Plan Discharge Anticipated Discharge Date/Time: 04/01/24 14:23 Patient Disposition: Home, Self-Care Discharge Diagnosis: prolonged QT interval hypokalemia and hypomagnesemia prosthetic tricuspid valve malfunction heart failure with reduced ejection fraction Referrals: Nirali Lott NP [Primary Care Provider] - 1 Week Discharge Medications: New magnesium oxide 400 mg magnesium tablet 400 mg PO BID Qty: 60 0RF Continued Xarelto 20 mg Tablet 20 mg PO DAILY Qty: 30 0RF Rx Instructions: must administer with evening meal nicotine 21 mg/24 hr Patch 24 Hour 21 mg transdermal DAILY Qty: 30 0RF spironolactone 25 mg Tablet 25 mg PO DAILY 30 Days Qty: 30 0RF Protocol: Hold for SBP< HOLD for SBP < : 90 clonidine HCl 0.1 mg Tablet 0.1 mg PO TID PRN (Reason: Anxiety) hydroxyzine HCl 50 mg Tablet 50 mg PO TID PRN (Reason: Anxiety) methadone [Methadose] 10 mg/mL concentrate 90 mg PO DAILY Rx Instructions: Partial Fill upon patient request. albuterol sulfate 90 mcg/actuation HFA aerosol inhaler 2 puff inhalation Q6H PRN (Reason: Respiratory Distress) gabapentin 100 mg capsule 100 mg PO TID acetaminophen 325 mg capsule 650 mg PO Q6H PRN (Reason: Pain (Scale Score 1-3)) Discharge Orders: Discharge Order (Routine); Ordered 04/01/24 Ordered By: Sherri Novak Diet: Advance to usual diet Activity on Discharge: As tolerated Stand Alone Forms: Patient Portal Discharge page Print Language: Tamazight Other Ambulatory Orders: Basic Metabolic Panel (Routine) Timeframe: 3 Days Facility: [facility] - Location: Laboratory Ordered By: Sherri Novak Magnesium (Routine) Timeframe: 3 Days Facility: [facility] - Location: Laboratory Ordered By: Sherri Novak Care Plan Goals: heart health sobriety Health Concerns: prolonged QT interval hypokalemia and hypomagnesemia prosthetic tricuspid valve malfunction heart failure with reduced ejection fraction Plan of Treatment: take magnesium oxide 400 mg twice daily repeat electrolytes on Thursday04/04/24 [magnesium, BMP] avoid drug use; continue methadone Please follow up with your primary care doctor within 1 week. Return to the hospital if you experience recurrent or worsening symptoms. Consider outpatient cardiology referral. Assessment: See Discharge Summary.
--- NOTE | 2024-04-01 14:43 | MHC.RECOVRN ---
Met with pt in 487 after pt made decision to conduct self directed discharge. Pt states I just want to go. Pt denies withdrawal, reports he is comfortable with methadone dose. Pt plans to stay with aunt and mother while awaiting ATS bed. Upon completion of ATS, pt plans for admission to [facility]. Pt provided with list of ATS facilities as well as t/w contact information if needed. Pt denies questions or concerns for t/w.
--- NOTE | 2024-04-01 15:25 | MHC.CM.PN ---
pt medically cleared for dc home self-care, pt left unit prior to cm offering bus passes or transport
--- NOTE | 2024-04-01 15:58 | P.PNADD_ITS ---
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 Admitted for chest pain Know to this ad writer via previous admissions-last one 03/2023 He reports he had been abstaining from substance use for almost a year until he and his mother had to leave where they were staying. In his new residence february people were using substances and he eventually began to use as well He states he sought ATS admissions several times and also had a [facility] admission. He has been engaged in treatment for OUD via [facility] and his methadone dose is 90mg daily. He verbalizes that he wishes to continue treatment and hopes to be placed out of this area. No withdrawal sx noted, bright affect. Review of Systems Acute medical concerns: Yes Review of Systems Constitutional: Reports as per HPI and Reports no additional constitutional complaints Mental Status Exam Mental Status Exam Patient Appearance: Appropriate Patient Orientation: Person, Place, Time and Situation Level of Consciousness: Awake, Appropriate and Alert Patient Behavior: Appropriate and Talkative Mood Description: Calm Affect Description: Calm Ability to Follow Directions: Excellent Speech Pattern: Clear Thought Process: Intact Thought Content: positive for Intact Judgement: Fair Diagnostics Vital Signs (24Hr): Vital Signs - 24 hr 03/31/24 21:00 03/31/24 23:59 04/01/24 03:18 Temperature 97.1 F 98.5 F 97.0 F Pulse Rate 88 67 72 Respiratory Rate 17 20 20 Blood Pressure 107/64 102/65 108/70 Pulse Oximetry 98 95 97 Oxygen Delivery Method Room Air Room Air Room Air 04/01/24 08:00 04/01/24 11:24 Temperature 97.0 F 96.9 F Pulse Rate 80 72 Respiratory Rate 20 20 Blood Pressure 120/80 122/80 Pulse Oximetry 94 96 Oxygen Delivery Method Room Air Room Air BMI result Body Mass Index 23.6 Labs 03/31/24 14:10 04/01/24 07:37 Labs: Laboratory Results - last 48 hr 03/30/24 03/30/24 03/30/24 17:48 19:36 19:43 WBC 12.5 H RBC 4.40 L D Hgb 12.6 L Hct 36.3 L MCV 82.5 MCH 28.6 MCHC 34.7 RDW 16.8 H Plt Count 215 D MPV 10.3 Immature Gran % (Auto) 1.6 H Neut % (Auto) 71.8 Lymph % (Auto) 15.7 L [place] % (Auto) 9.9 Eos % (Auto) 0.4 Baso % (Auto) 0.6 Lymph # (Auto) 2.0 [place] # (Auto) 1.2 Eos # (Auto) 0.1 Baso # (Auto) 0.1 Abs Immat Gran (auto) 0.20 H Absolute Neuts (auto) 9.0 H Absolute Nucleated RBC 0.000 Nucleated RBC % (auto) 0.0 Hold Purple Top D-Dimer High Sensitivty Sodium 137 Potassium 3.1 L Chloride 108 Carbon Dioxide 17 L Anion Gap 15 BUN 16 Creatinine 1.30 Estim Creat Clear Calc 79.3 Estimated GFR > 60 Random Glucose 121 H Lactic Acid 1.0 Calcium 8.7 D Magnesium 1.6 Total Bilirubin 2.1 H AST 75 H ALT 40 Alkaline Phosphatase 195 H Troponin I High Sens 7.3 B-Natriuretic Peptide Total Protein 6.7 Albumin 3.4 L Urine Color Urine Appearance Urine pH Ur Specific [place] Urine Protein Urine Glucose (UA) Urine Ketones Urine Blood Urine Nitrite Ur Leukocyte Esterase Urine RBC Urine WBC Ur Squamous Epith Cells Calcium Oxalate Crystal Urine Bacteria Hyaline Casts Urine Opiates Screen Ur Buprenorphine Scrn Ur Oxycodone Screen Urine Methadone Screen Urine Fentanyl Screen Ur Barbiturates Screen Ur Phencyclidine Scrn Ur Amphetamines Screen U Benzodiazepines Scrn Urine Cocaine Screen U Marijuana (THC) Screen Ethyl Alcohol < 10 Hep Bs Antigen Hep Bs Antibody Hep B Core Total Ab HIV 1&2 Ab/P24 Ag 4thGn 03/30/24 03/31/24 03/31/24 20:32 01:05 14:09 WBC RBC Hgb Hct MCV MCH MCHC RDW Plt Count MPV Immature Gran % (Auto) Neut % (Auto) Lymph % (Auto) [place] % (Auto) Eos % (Auto) Baso % (Auto) Lymph # (Auto) [place] # (Auto) Eos # (Auto) Baso # (Auto) Abs Immat Gran (auto) Absolute Neuts (auto) Absolute Nucleated RBC Nucleated RBC % (auto) Hold Purple Top D-Dimer High Sensitivty 824 Sodium 138 Potassium 2.9 L* Chloride 109 H Carbon Dioxide 21 L Anion Gap 11 L BUN 13 Creatinine 0.90 Estim Creat Clear Calc 114.5 Estimated GFR > 60 Random Glucose 94 Lactic Acid Calcium 8.3 L Magnesium 1.7 Total Bilirubin 1.5 H AST 52 H ALT 33 Alkaline Phosphatase 182 H Troponin I High Sens 6.2 B-Natriuretic Peptide Total Protein 5.7 L Albumin 2.8 L Urine Color Dark Yellow Urine Appearance Clear Urine pH 6.0 Ur Specific [place] 1.020 Urine Protein 30 (1+) H Urine Glucose (UA) Negative Urine Ketones Negative Urine Blood Moderate (2+) H Urine Nitrite Negative Ur Leukocyte Esterase Negative Urine RBC 11-20 H Urine WBC 0-5 Ur Squamous Epith Cells 0-2 Calcium Oxalate Crystal Present Urine Bacteria None Seen Hyaline Casts 0-2 Urine Opiates Screen POSITIVE H Ur Buprenorphine Scrn Not Detected Ur Oxycodone Screen Not Detected Urine Methadone Screen Positive H Urine Fentanyl Screen POSITIVE H Ur Barbiturates Screen Not Detected Ur Phencyclidine Scrn Not Detected Ur Amphetamines Screen Not Detected U Benzodiazepines Scrn POSITIVE H Urine Cocaine Screen POSITIVE H U Marijuana (THC) Screen POSITIVE H Ethyl Alcohol Hep Bs Antigen Negative Hep Bs Antibody REACTIVE Hep B Core Total Ab Nonreactive HIV 1&2 Ab/P24 Ag 4thGn Nonreactive 03/31/24 04/01/24 14:10 07:37 WBC 9.0 RBC 4.63 Hgb 13.0 L Hct 38.4 L MCV 82.9 MCH 28.1 MCHC 33.9 RDW 17.9 H Plt Count 210 MPV 10.3 Immature Gran % (Auto) 0.7 H Neut % (Auto) 53.8 Lymph % (Auto) 27.2 [place] % (Auto) 12.6 H Eos % (Auto) 5.1 H Baso % (Auto) 0.6 Lymph # (Auto) 2.4 [place] # (Auto) 1.1 Eos # (Auto) 0.5 H Baso # (Auto) 0.1 Abs Immat Gran (auto) 0.06 H Absolute Neuts (auto) 4.8 Absolute Nucleated RBC 0.000 Nucleated RBC % (auto) 0.0 Hold Purple Top SEE NOTE D-Dimer High Sensitivty Sodium 139 Potassium 3.7 D Chloride 112 H Carbon Dioxide 24 Anion Gap 7 L BUN 18 H Creatinine 0.91 Estim Creat Clear Calc 113.3 Estimated GFR > 60 Random Glucose 94 Lactic Acid Calcium 8.5 Magnesium 1.5 L Total Bilirubin AST ALT Alkaline Phosphatase Troponin I High Sens B-Natriuretic Peptide 231 H Total Protein Albumin Urine Color Urine Appearance Urine pH Ur Specific [place] Urine Protein Urine Glucose (UA) Urine Ketones Urine Blood Urine Nitrite Ur Leukocyte Esterase Urine RBC Urine WBC Ur Squamous Epith Cells Calcium Oxalate Crystal Urine Bacteria Hyaline Casts Urine Opiates Screen Ur Buprenorphine Scrn Ur Oxycodone Screen Urine Methadone Screen Urine Fentanyl Screen Ur Barbiturates Screen Ur Phencyclidine Scrn Ur Amphetamines Screen U Benzodiazepines Scrn Urine Cocaine Screen U Marijuana (THC) Screen Ethyl Alcohol Hep Bs Antigen Hep Bs Antibody Hep B Core Total Ab HIV 1&2 Ab/P24 Ag 4thGn Imaging Radiology Impressions: ITS Impressions Chest X-Ray 03/30/24 19:55 IMPRESSION: No evidence for acute disease in the chest. Chest CTA 03/30/24 23:26 IMPRESSION: 1. No evidence of pulmonary emboli. 2. Cardiomegaly with reflux of contrast into the hepatic veins suggesting elevated right heart pressures. 3. Other incidental findings described above including ascites. Medications Allergies Allergies Allergy/AdvReac Type Severity Reaction Status Date / Time No Known Allergies Allergy Verified 03/30/24 17:30 [No Known Allergies*] Assessment & Plan Assessment & Plan (1) Opioid use disorder, severe, dependence: Status: Acute Code(s): F11.20 - Opioid dependence, uncomplicated Assessment and Plan: * at time of this note, patient had self initiated discharge * already connected to [facility] and reported to paper goods machine operator that he plans to continue with outpatient treatment Total time managing care of this patient today ____ minutes.
[2024-04-02 13:34] LABS: HCV Log PCR 5.12 Log IU/mL (NOT DETECTED); HepC Viral Load 133000 IU/mL (NOT DETECTED)
== END 2024-04-01 15:06 | disposition home or self-care (01) | DRG 206 ==
LOC: HO.ED 20:09 → HO.EDOVER 20:32 → HO.IMC 03-31 14:41 → HO.EDOVER 03-31 15:32 → HO.IMC 03-31 19:52
PROVIDERS: Admitting Provider Internal Medicine; Emergency Provider Emergency Medicine; PCP Nurse Practitioner Family; Visit Provider Family Medicine
DX: T82.09XA Other mechanical complication of heart valve prosthesis, initial encounter (principal); I50.22 Chronic systolic (congestive) heart failure; B18.2 Chronic viral hepatitis C; F11.20 Opioid dependence, uncomplicated; E86.0 Dehydration; E83.42 Hypomagnesemia; Y71.2 Prosthetic and other implants, materials and accessory cardiovascular devices associated with adverse incidents; R94.31 Abnormal electrocardiogram [ECG] [EKG]; E87.6 Hypokalemia; Z86.711 Personal history of pulmonary embolism; Z79.01 Long term (current) use of anticoagulants; Z79.899 Other long term (current) drug therapy
CPT/HCPCS: 36415; 71045; 71275; 80048; 80053; 80307; 81001; 83605; 83735; 83880; 84484; 85025; 85379; 86704; 86706; 87040; 87340; 87389; 87522; 93005; 93306; 99222; 99285; J3475; J3480; J7120; Q9957; Q9967

== ENCOUNTER 2024-03-30 20:22 | Outpatient (BNV) | payer MEDICAID, SELFPAY | END 2024-04-01 11:05 | PROVIDERS: Admitting Provider Internal Medicine; Emergency Provider Emergency Medicine; PCP Nurse Practitioner Family; Visit Provider Internal Medicine | DX: I45.19 Other right bundle-branch block (principal); R94.31 Abnormal electrocardiogram [ECG] [EKG] | CPT/HCPCS: 93010 ==

== ENCOUNTER 2024-03-30 20:22 | Outpatient (BNV) | payer MEDICAID, SELFPAY | END 2024-03-31 07:00 | PROVIDERS: Admitting Provider Internal Medicine; Emergency Provider Emergency Medicine; Visit Provider Internal Medicine | DX: T82.857A Stenosis of other cardiac prosthetic devices, implants and grafts, initial encounter (principal) | CPT/HCPCS: 93010; 93306 ==

== ENCOUNTER → 2024-03-30 20:22 | Outpatient (BNV) | payer OTHER, SELFPAY | PROVIDERS: Admitting Provider Internal Medicine; Emergency Provider Emergency Medicine; PCP Nurse Practitioner Family; Visit Provider Nurse Practitioner Psychiatric/Mental Health | DX: F11.20 Opioid dependence, uncomplicated (principal) | CPT/HCPCS: 99231 ==

== ENCOUNTER → 2024-03-30 20:22 | Outpatient (BNV) | payer MEDICAID, SELFPAY | PROVIDERS: Admitting Provider Internal Medicine; Emergency Provider Emergency Medicine; PCP Nurse Practitioner Family; Visit Provider Internal Medicine | DX: R94.31 Abnormal electrocardiogram [ECG] [EKG] (principal); F19.10 Other psychoactive substance abuse, uncomplicated; T82.01XA Breakdown (mechanical) of heart valve prosthesis, initial encounter; Z86.79 Personal history of other diseases of the circulatory system | CPT/HCPCS: 93010; 99223 ==

== ENCOUNTER → 2024-03-30 20:22 | Outpatient (BNV) | payer MEDICAID, SELFPAY | PROVIDERS: Admitting Provider Internal Medicine; Emergency Provider Emergency Medicine; Visit Provider Internal Medicine | DX: R94.31 Abnormal electrocardiogram [ECG] [EKG] (principal); R07.9 Chest pain, unspecified; F19.90 Other psychoactive substance use, unspecified, uncomplicated; Z86.79 Personal history of other diseases of the circulatory system; T82.01XA Breakdown (mechanical) of heart valve prosthesis, initial encounter; E83.42 Hypomagnesemia; E87.6 Hypokalemia; I50.22 Chronic systolic (congestive) heart failure; B19.20 Unspecified viral hepatitis C without hepatic coma | CPT/HCPCS: 99223; 99232; 99239; 99499 ==

== ENCOUNTER 2024-04-08 10:50 | Outpatient (REF) | payer MEDICAID, SELFPAY ==
[2024-04-08 13:28] LABS: INTERNATIONAL NORM RATIO 1.4 (0.9-1.1); Prothrombin Time 16.7 SEC (11.1-13.3)
[2024-04-08 13:37] LABS: Anion Gap 13 (12-20); Blood Urea Nitrogen 13 mg/dL (9-16); Calcium 9.3 mg/dL (8.4-10.2); Carbon Dioxide 27 mmol/L (22-29); Chloride 105 mmol/L (96-108); Estimated Glomerular Filt Rate > 60; Glucose Random 66 mg/dL (60-115); Magnesium 2.1 mg/dL (1.6-2.6); Potassium 3.8 mmol/L (3.3-5.1); Sodium 141 mmol/L (135-145)
[2024-04-11 08:45] LABS: HIV AB/AG Nonreactive (Nonreactive); HIV Num 1 0.05 S/CO (0.00-0.99)
[2024-04-11 15:29] LABS: HepC Viral Load 160000 IU/mL (NOT DETECTED)
[2024-04-25 02:32] LABS: FIB-ALT 35 U/L (9-46); FIB-Alpha-2-Macroglobulin 152 mg/dL (106-279); FIB-Apolipoprotein A1 111 mg/dL (94-176); FIB-GGT 272 U/L (3-90); FIB-Haptoglobin 131 mg/dL (43-212); FIB-Total Bilirubin 1.6 mg/dL (0.2-1.2); Liver Fibrosis Score 0.52; Liver Fibrosis Stage F2; Nec Inflam Act Grade A0-A1; Nec Inflam Act Score 0.24
== END 2024-04-08 10:51 | disposition home or self-care (01) ==
LOC: HO.HHCL 10:50
PROVIDERS: Visit Provider Nurse Practitioner
DX: B19.20 Unspecified viral hepatitis C without hepatic coma (principal); R07.9 Chest pain, unspecified; R31.9 Hematuria, unspecified
CPT/HCPCS: 36415; 80048; 81596; 83735; 85610; 87389; 87522

== ENCOUNTER 2024-04-20 14:07 | Emergency (ER) | payer MEDICAID, SELFPAY ==
[2024-04-20 14:41] VITALS: BP 110/74; BP 116/78; PULSE 88; PULSE 97; RESP 14; TEMP 36.6; O2SAT 94; O2SAT 97; BMI 22.0
--- NOTE | 2024-04-20 14:50 | ED_ITS ---
HPI - General Adult General Chief complaint: Extremity Problem Stated complaint: BLEEDING VERICOSE VEIN,FROM CLINIC PER EMS Time Seen by Provider: 04/20/24 16:07 Source: patient and EMS Mode of arrival: EMS Limitations: no limitations History of Present Illness ED Provider: Dr. Petres HPI narrative: 33 y/o M patient; PMH IV drug use, endocarditis of prosthetic tricuspid valve, pulmonary embolism non adherent with Xarelto, chronic hep C infection; presents from home with report of three days of right lower extremity varicose vein bleeding. The patient denies any known acute trauma to the area. He presents today as the bleeding has been ongoing. He denies prior similar symptoms. He denies any other complaints. Related Data Home Medications ?Medication ?Instructions ?Recorded ?Confirmed acetaminophen 325 mg capsule 650 mg PO Q6H PRN Pain (Scale 04/13/23 03/30/24 Score 1-3) albuterol sulfate 90 mcg/actuation 2 puff inhalation Q6H PRN 04/13/23 03/30/24 aerosol inhaler Respiratory Distress gabapentin 100 mg capsule 100 mg PO TID 04/13/23 clonidine HCl 0.1 mg tablet 0.1 mg PO TID PRN Anxiety 03/30/24 03/30/24 hydroxyzine HCl 50 mg tablet 50 mg PO TID PRN Anxiety 03/30/24 03/30/24 methadone 10 mg/mL oral 90 mg PO DAILY 03/31/24 03/31/24 concentrate (Methadose) Previous Rx's ?Medication ?Instructions ?Recorded rivaroxaban 20 mg tablet (Xarelto) 20 mg PO DAILY #30 tabs 08/02/22 nicotine 21 mg/24 hr daily 21 mg transdermal DAILY #30 ea 03/20/23 transdermal patch spironolactone 25 mg tablet 25 mg PO DAILY 30 days #30 tabs 03/23/23 magnesium oxide 400 mg PO BID #60 tabs 04/01/24 Allergies Allergy/AdvReac Type Severity Reaction Status Date / Time No Known Allergies Allergy Verified 04/20/24 14:46 [No Known Allergies*] Review of Systems Review of Systems: Yes all other systems are reviewed and are negative PMFSH Past Medical History Attestation statement: The following information was validated with the patient. Source: old records reviewed Medical History Opioid use disorder, severe, dependence Substance abuse MSSA bacteremia Bacteremia Bacteremia Right heart failure Steatosis, liver Tricuspid valve stenosis Anasarca HCV (hepatitis C virus) Endocarditis Pulmonary embolism Surgical History History of tricuspid valve replacement with bioprosthetic valve Social History Social History Household Members: None Household Members Other:: none. homeless Housing: Homeless Do you presently have visiting nurse or other home services: No Unable to assess alcohol history related to: Unknown Alcohol intake: former Patient Tobacco Use Status: Tobacco use Unknown Tobacco use type: Cigarette Cigarette Packs Per Day: 1 Cigarettes Per Day: 20.0 Years Smoked: 10 Second Hand Smoke Exposure: No Substance Use Type: IV Drugs Advance Directives: Yes Advance Directives on File: Yes Advance Directives Date on File: 04/16/21 service: No Current occupational status: unemployed Physical Exam ED Vital Signs: Vital Signs - 24 hr 04/20/24 14:41 04/20/24 17:51 Temperature 97.9 F 97.9 F Pulse Rate 97 97 Respiratory Rate 14 16 Blood Pressure 110/74 110/74 Pulse Oximetry 94 94 Oxygen Delivery Method Room Air Room Air BMI result Body Mass Index 22.0 Patient is afebrile and hemodynamically stable. Const General: cooperative HENMT Head: Yes normal to inspection and Yes atraumatic Eyes General: appearance normal, both eyes and all related structures Pupils: Equal, round and reactive pupils present EOM: EOMs intact bilaterally Neck Neck: Yes normal visual inspection, Yes full ROM, Yes supple and No tender Chest Chest palpation & inspection: normal inspection of the chest and normal palpation of entire chest wall Resp Effort & Inspection: normal respiratory effort, able to speak in complete sentences, no cough and no respiratory distress Auscultation: clear to auscultation bilaterally Cardio Rate: regular rate Rhythm: regular rhythm Peripheral pulses: Peripheral pulses 2+ throughout GI Inspection: Yes normal to inspection, No Abdominal wall edema and No distended Palpation (GI): Soft to palpation, not firm, nontender, no guarding and not rigid Auscultation: normal bowel sounds Neuro Cranial nerves: Yes Equal, round and reactive pupils present Extrem Other: Right anterior varicose vein with active bleeding. RLE: Non-tender, FROM, NVI. Palpable pulse DP/PT. Course Course Course Narrative: This is an RME done by [facility]: Additional HPI, ROS, PE not included below will be deferred to primary provider. 33 yo m hx of hep c, opiate use d/o, endocarditiis, joann presents w/ bleeding vaicose vein to rle sent in from [facility] PE compression dressing to rle not bleeding at this time Reevaluation(s) Reevaluation #1: Patient is afebrile and hemodynamically stable. Derrick wrap removed. Applied surgicel, sponge dressing, and coband. Re-exam with RLE FROM, NVI, palpable DP/PT. Plan: Period of observation - will require surgical follow up for evaluation due to risk of re-occurance. Condition: Stable Discharge Plan Discharge Clinical Impression: Varicose vein of leg Patient Disposition: Home, Self-Care Instructions: Venous Insufficiency (DC) Additional Instructions: As we discussed, you were seen today for a bleeding varicose vein. A specific dressing was applied which needs to remain on for the next 48 hours. Followup with your PCP and the surgical provider given here within the next 48 hours for re-evaluation. Return to the emergency department for: Continued bleeding Lightheadedness/Dizziness Passing out Chest pain Prescriptions: No Action Xarelto 20 mg Tablet 20 mg PO DAILY Qty: 30 0RF Rx Instructions: must administer with evening meal nicotine 21 mg/24 hr Patch 24 Hour 21 mg transdermal DAILY Qty: 30 0RF spironolactone 25 mg Tablet 25 mg PO DAILY 30 Days Qty: 30 0RF Protocol: Hold for SBP< HOLD for SBP < : 90 clonidine HCl 0.1 mg Tablet 0.1 mg PO TID PRN (Reason: Anxiety) hydroxyzine HCl 50 mg Tablet 50 mg PO TID PRN (Reason: Anxiety) methadone [Methadose] 10 mg/mL concentrate 90 mg PO DAILY Rx Instructions: Partial Fill upon patient request. magnesium oxide 400 mg magnesium tablet 400 mg PO BID Qty: 60 0RF albuterol sulfate 90 mcg/actuation HFA aerosol inhaler 2 puff inhalation Q6H PRN (Reason: Respiratory Distress) gabapentin 100 mg capsule 100 mg PO TID acetaminophen 325 mg capsule 650 mg PO Q6H PRN (Reason: Pain (Scale Score 1-3)) Referrals: Carlos Eduardo Jerome MD [Physician] - 2 days Interventions: ED Discharge Assessment Last Done: 04/20/24 17:51 Discharge Date/Time: 04/20/24 17:52 Print Language: Romanian
[2024-04-20 17:51] VITALS: BP 110/74; PULSE 97; RESP 16; TEMP 36.6; O2SAT 94
== END 2024-04-20 17:52 | disposition home or self-care (01) ==
PROVIDERS: Emergency Provider Emergency Medicine
DX: I83.891 Varicose veins of right lower extremity with other complications (principal); I26.99 Other pulmonary embolism without acute cor pulmonale; Z79.899 Other long term (current) drug therapy; Z91.148 Patient's other noncompliance with medication regimen for other reason; B18.2 Chronic viral hepatitis C
CPT/HCPCS: 99282

== ENCOUNTER 2024-04-28 14:09 | Outpatient (AMB) | payer MEDICAID, SELFPAY ==
--- NOTE | 2024-04-28 14:14 | A.OFFVIS_ITS ---
Vital Signs 04/28/24 14:22 Height 5 ft 6 in Weight 139 lb BMI 22.4 BP 124/79 Blood Pressure Location Lt brachial Position Sitting Pulse 84 Intake Visit Reasons: Bleeding non-healing wound Intake Note: Patient is seen in office for ER follow up visit, following bleeding non healing wound. Pt c/o: right lower leg, was taking a shower a week ago and one of the varicose veins started bleeding, has been to ED couple of times, currently is not bleeding for the past couple of days, admits to swelling ER:04/20/24 [facility] Plans Staff Officer Required: No Accompanied by: Other Relationship Allergies No Known Allergies [No Known Allergies*] Allergy (Verified 04/28/24 14:19) Medication List - Last Reconciled 04/28/24 by Carlos Eduardo Jerome MD albuterol sulfate 90 mcg/actuation 2 puffs inhalation Q6H PRN clonidine HCl 0.1 mg PO TID PRN gabapentin 100 mg PO TID hydroxyzine HCl 50 mg PO TID PRN magnesium oxide 400 mg PO BID methadone (Methadose) 90 mg PO DAILY nicotine 21 mg transdermal DAILY rivaroxaban (Xarelto) 20 mg PO DAILY spironolactone 25 mg See Protocol PO DAILY 30 days HPI Comments Details: 33-year-old male patient with history of varicose veins presenting with a recent history of bleeding from the varicose veins requiring a visit to the emergency department. A compressive dressing was applied at that time. Patient has history of tricuspid valve replacement and is currently on Xarelto. Since his ER visit, he denies any ongoing bleeding from the wounds. He continues to have the same dressing in place since his ER visit on 04/20/2024. He reports a long history of varicose veins but denies any previous procedures. He does report itching and achiness in the legs and is interested in having further treatment to reduce the size. [facility] Medical History Opioid use disorder, severe, dependence Substance abuse MSSA bacteremia Bacteremia Bacteremia Right heart failure Steatosis, liver Tricuspid valve stenosis Anasarca HCV (hepatitis C virus) Endocarditis Pulmonary embolism Surgical History History of tricuspid valve replacement with bioprosthetic valve Social History Household Members: None Household Members Other:: none. homeless Housing: Homeless Do you presently have visiting nurse or other home services: No Unable to assess alcohol history related to: Unknown Alcohol intake: former Patient Tobacco Use Status: Tobacco use Unknown Tobacco use type: Cigarette Cigarette Packs Per Day: 1 Cigarettes Per Day: 20.0 Years Smoked: 10 Second Hand Smoke Exposure: No Substance Use Type: IV Drugs Advance Directives Date on File: 04/16/21 service: No Current occupational status: unemployed Review of Systems Const All systems reviewed & are unremarkable except as noted in HPI and below Denies chills, Denies fever(s), Denies headache(s), Denies poor appetite and Denies weakness ENT Denies headache(s) Card Denies chest pain, Denies irregular heart rhythm, Denies palpitations and Denies dyspnea Resp Denies cough, Denies excessive phlegm production and Denies dyspnea GI Denies abdominal pain, Denies bloating, Denies change in bowel habits, Denies constipation, Denies heartburn, Denies diarrhea, Denies nausea and Denies vomiting Denies difficulty urinating and Denies urinary frequency Musc Denies back pain, Denies muscle weakness and Denies numbness Skin/Breast Reports as per HPI, Denies changing lesions and Denies unusual bruising Neuro Denies headache(s), Denies numbness, Denies paresthesias and Denies weakness Psych Denies anxiety and Denies depression Endo Denies palpitations Candido/Lymph Denies lymphadenopathy Physical Exam Vital Signs: Last Vital Signs Pulse 84 04/28/24 14:22 BP 124/79 04/28/24 14:22 BMI result Body Mass Index 22.4 Const General: cooperative and no acute distress Nutritional Appearance: well nourished Orientation/consciousness: patient oriented x3 Limitations: no limitations HEENT Head: Yes normocephalic and Yes atraumatic Ears: hearing grossly normal bilaterally Resp Effort & Inspection: normal respiratory effort, no audible wheezes, no cough and no respiratory distress Cardio Jugular venous distension: no JVD GI Inspection: Yes normal to inspection Skin Other: Warm, dry, no rash Neuro General: patient oriented x3 Extrem Other: Bilateral lower extremity varicosities especially in the lower legs. Dressings were removed in the right leg and no open wound or bleeding was identified. A protective gauze dressing followed by Derrick bandage was then applied. General: Yes no clubbing, cyanosis or edema Assessment & Plan Assessment & Plan (1) Bleeding from varicose vein: Code(s): I83.899 - Varicose veins of unspecified lower extremity with other complications Category: Medical Plan 33-year-old male patient with extensive lower extremity varicose veins presenting with a recent bleeding vessel treated in the emergency department with a compressive dressing. There is no ongoing bleeding at this time and no open wound identified. He does have extensive varicosities as noted above. I recommended further evaluation by Dr. Cardona from vascular surgery for possible venous ablation. He expressed understanding and agrees with the plan. Orders: Referrals Vascular Surgery Referral I83.899 - Varicose veins of unspecified lower extremity with other complications Coding Level of Care Code New Pt Level 4 (31556) Diagnoses Bleeding from varicose vein I83.899
[2024-04-28 14:22] VITALS: BP 124/79; PULSE 84; BMI 22.4
== END 2024-04-28 14:55 | disposition home or self-care (01) ==
PROVIDERS: PCP Nurse Practitioner Family; Visit Provider Surgery
DX: I83.899 Varicose veins of unspecified lower extremity with other complications (principal)
CPT/HCPCS: 99204

== ENCOUNTER → 2024-04-28 14:09 | Outpatient (BNVA) | payer MEDICAID, SELFPAY | PROVIDERS: Visit Provider Surgery | DX: I83.899 Varicose veins of unspecified lower extremity with other complications (principal) | CPT/HCPCS: 99202 ==

== ENCOUNTER 2024-05-07 14:45 | Emergency (ER) | payer MEDICAID, SELFPAY ==
--- NOTE | ~2024-05-07 | XR_ITS ---
EXAMINATION: XR CHEST CLINICAL INFORMATION: Chest pain. COMPARISON: CTA chest 03/30/2024. Chest radiograph 03/30/2024. TECHNIQUE: Frontal view of the chest was obtained. FINDINGS: Normal heart size. Redemonstration of median sternotomy and indeterminate wiring overlying the left hemithorax, similar to prior. Unchanged mild diffuse interstitial prominence. No focal consolidation. New trace blunting of the bilateral costophrenic angles. No pneumothorax. No acute osseous findings. XR/XR chest 1V IMPRESSION: 1. New trace blunting of the bilateral costophrenic angles which could be related with subsegmental atelectasis or trace amount of pleural fluid. 2. No focal consolidation. 3. No pneumothorax.
--- NOTE | 2024-05-07 14:46 | ECG_ITS ---
Test Reason : CHEST PAIN Blood Pressure : / mmHG Vent. Rate : 104 BPM Atrial Rate : 104 BPM P-R Int : 136 ms QRS Dur : 094 ms QT Int : 348 ms P-R-T Axes : 042 065 039 degrees QTc Int : 457 ms Sinus tachycardia Incomplete right bundle branch block T wave abnormality, consider anterior ischemia Abnormal ECG When compared with ECG of 01-APR-2024 11:05, Questionable change in QRS axis Nonspecific T wave abnormality, improved in Lateral leads Referred By: Generic ED Physician Electronically Signed By:ANGÉLICA VILLANUEVA MD
[2024-05-07 14:47] VITALS: BP 131/98; PULSE 115; RESP 18; TEMP 36.4; O2SAT 94; BMI 22.5
--- NOTE | 2024-05-07 14:56 | ED_ITS ---
HPI - Chest Pain General Chief Complaint: Chest Pain Stated Complaint: Chest Pain SOB Source: patient Mode of arrival: ambulatory Limitations: no limitations History of Present Illness ED Provider: Estelita Barber PA-C HPI narrative: Patient is a 33 year old assigned male at with a history of opioid use disorder and tricuspid valve replacement presenting to the emergency department today with chest pain and shortness of breath. Patient states that over the last year he has had chest pain and shortness of breath. Patient states that he is having trouble finding somewhere to live. Patient denies any dizziness, lightheadedness, abdominal pain, nausea, vomiting, fever, chills, blurry vision, double vision, loss of vision, back pain, night sweats, pain with urination, increased urinary frequency, increased urinary urgency, blood in his urine or stool, syncope or a near syncopal episode, recent trauma or falls, bowel incontinence, bladder incontinence, or any other complaints at this time. Relieving factors: nothing Exacerbating factors: nothing Related Data Home Medications ?Medication ?Instructions ?Recorded ?Confirmed albuterol sulfate 90 mcg/actuation 2 puff inhalation Q6H PRN 04/13/23 04/28/24 aerosol inhaler Respiratory Distress gabapentin 100 mg capsule 100 mg PO TID 04/13/23 04/28/24 clonidine HCl 0.1 mg tablet 0.1 mg PO TID PRN Anxiety 03/30/24 03/30/24 hydroxyzine HCl 50 mg tablet 50 mg PO TID PRN Anxiety 03/30/24 03/30/24 methadone 10 mg/mL oral 90 mg PO DAILY 03/31/24 04/28/24 concentrate (Methadose) Previous Rx's ?Medication ?Instructions ?Recorded rivaroxaban 20 mg tablet (Xarelto) 20 mg PO DAILY #30 tabs 08/02/22 nicotine 21 mg/24 hr daily 21 mg transdermal DAILY #30 ea 03/20/23 transdermal patch spironolactone 25 mg tablet 25 mg PO DAILY 30 days #30 tabs 03/23/23 magnesium oxide 400 mg PO BID #60 tabs 04/01/24 Allergies Allergy/AdvReac Type Severity Reaction Status Date / Time No Known Allergies Allergy Verified 05/07/24 14:49 [No Known Allergies*] Review of Systems 2 Constitutional: Constitutional: Reports no additional constitutional complaints, Denies chills, Denies fever(s) and Denies night sweats Eyes: Eyes: Reports no additional eye complaints, Denies blurry vision, Denies change in vision, Denies diplopia, Denies eye discharge, Denies loss of vision and Denies eye pain ENT: Denies dizziness Cardiovascular: Cardiovascular: Reports no additional cardiovascular complaints, Reports chest pain, Denies lightheadedness, Denies Loss of Consciousness and Reports dyspnea Respiratory: Respiratory: Reports no additional respiratory complaints and Reports dyspnea Gastrointestinal: Gastrointestinal: Reports no additional gastrointestinal complaints, Denies abdominal pain, Denies melena, Denies hematochezia, Denies change in bowel habits and Denies change in stool character Genitourinary: Genitourinary: Reports no additional male genitourinary complaints, Denies hematuria, Denies oliguria, Denies difficulty urinating, Denies dysuria, Denies urinary frequency, Denies urinary hesitancy, Denies urinary incontinence and Denies urinary urgency Musculoskeletal: Musculoskeletal: Reports no additional musculoskeletal complaints, Denies numbness and Denies tingling Neurologic: Denies dizziness, Denies loss of vision, Denies numbness and Denies tingling Psychiatric: Psychiatric: Reports no additional psychiatric complaints Endocrine: Endocrine: Reports no additional endocrine complaints Hematologic/Lymphatic: Hematologic/Lymphatic: Reports no additional hematologic/lymphatic complaints Allergic/Immunologic: Allergic/Immunologic: Reports no additional allergic/immunologic complaints [facility] Past Medical History Attestation statement: The following information was validated with the patient. Source: old records reviewed and nursing notes reviewed Medical History Opioid use disorder, severe, dependence Substance abuse MSSA bacteremia Bacteremia Bacteremia Right heart failure Steatosis, liver Tricuspid valve stenosis Anasarca HCV (hepatitis C virus) Endocarditis Pulmonary embolism Surgical History History of tricuspid valve replacement with bioprosthetic valve Social History Social History Household Members: None Household Members Other:: none. homeless Housing: Homeless Do you presently have visiting nurse or other home services: No Unable to assess alcohol history related to: Unknown Alcohol intake: former Patient Tobacco Use Status: Tobacco use Unknown Tobacco use type: Cigarette Cigarette Packs Per Day: 1 Cigarettes Per Day: 20.0 Years Smoked: 10 Second Hand Smoke Exposure: No Substance Use Type: IV Drugs Advance Directives: Yes Advance Directives on File: Yes Advance Directives Date on File: 04/16/21 service: No Current occupational status: unemployed Physical Exam 2 Vital Signs: Vital Signs: Last Vital Signs Temp 97.6 F 05/07/24 14:47 Pulse 115 H 05/07/24 14:47 Resp 18 05/07/24 14:47 BP 131/98 H 05/07/24 14:47 Pulse Ox 94 05/07/24 14:47 O2 Del Method Room Air 05/07/24 14:47 BMI result Body Mass Index 22.5 Const: General: cooperative, no acute distress, alert and awake Nutritional Appearance: well nourished Orientation/consciousness: patient oriented x3 Limitations: no limitations HEENT: Head: Yes normal to inspection and Yes atraumatic Ears: hearing grossly normal bilaterally and external ears normal General nose exam: Normal external nose present, no nasal discharge noted and no epistaxis Face and sinus: Yes normal facial exam, No abrasion and No laceration Mouth: Normal oral and palatal mucosa present, no drooling and no muffled voice Eyes: General: appearance normal, both eyes and all related structures P eriorbital: periorbital findings normal Eyelids: Yes eyelids normal C onjunctivae: conjunctivae normal Pupils: Equal, round and reactive pupils present EOM: EOMs intact bilaterally Neck: Neck: Yes normal visual inspection, Yes full ROM and Yes no lymphadenopathy Chest: Chest palpation & inspection: normal inspection of the chest Resp: Effort & Inspection: normal respiratory effort and able to speak in complete sentences GI: Inspection: Yes normal to inspection Neuro: General: patient oriented x3 and moves all extremities Cranial nerves: Yes Equal, round and reactive pupils present Cognition (Neuro): n ormal cognition Extrem: General: Yes normal to inspection, Yes full ROM and Yes capillary refill normal Psych: Appearance: grossly normal Mental Status: mental status grossly normal Affect: normal affect Attitude: cooperative Thought process: N ormal thought process present Thought content: Normal thought content present Insight: Good insight present (Psych) Course Course Course Narrative: RME performed by Estelita Barber PA-C. Patient is a 33 year old assigned male at presenting to the emergency department with chest pain. Patient states he had a valve replaced in 2021 and has recently become unhoused. Detailed physical exam and review of systems are deferred to the licensed clinician. Labs ordered. Patient placed back in the waiting room pending room availability and results. Medical Decision Making Medical Decision Making [facility] Narrative: Patient is a 33 year old assigned male at with a history of opiate abuse and tricuspid valve replacement presenting to the emergency department today with homelessness, chest pain, and shortness of breath. Patient's limited physical exam performed in triage was unremarkable. Patient's blood work was unremarkable. Patient's EKG was unremarkable. Patient left the department without completing treatment. Patient left the department before myself or any of the other emergency department clinicians could explain to or review with the patient; physical exam findings, test results, need or lack there of for additional testing, need or lack there of for a procedure to be performed, need or lack there of for hospital admission / transfer, need or lack there of for prescription medication, treatment options, or a treatment plan. Differential Diagnosis Differential Diagnoses: The differential diagnosis associated with the presentation includes Heart failure SOB Chest pain NSTEMI STEMI Admission/Observation Consideration of admission/observation: Escalation of care including admission/observation considered Patient would have been admitted to the hospital had he completed his work up and it had any findings where hospital admission was appropriate, his clinical presentation warranted hospital admission, had myself or any other emergency supervisor pressing department had the ability to discuss need or lack there of for hospital admission, and the patient hadn't left the department without completing treatment. Lab Data [facility] Lab Attestation statement: I reviewed the patient's lab results. My interpretation of these results are in the [facility] Rationale portion of this note. 05/07/24 15:06 05/07/24 15:06 Labs: Lab Results 05/07/24 Range/Units 15:06 WBC 6.1 (4.8-10.8) X10*3/uL RBC 4.40 L (4.60-5.80) X10*6/uL Hgb 12.2 L (14.0-18.0) g/dl Hct 37.6 L (42.0-52.0) % MCV 85.5 (80.0-98.0) fL MCH 27.7 (27.0-33.0) pg MCHC 32.4 (31.0-36.0) g/dl RDW 16.9 H (11.0-16.0) % Plt Count 236 (160-400) X10*3/uL MPV 9.8 (9.4-12.4) fL Immature Gran % (Auto) 0.5 H (0.0-0.4) % Neut % (Auto) 45.3 (45-73) % Lymph % (Auto) 36.0 (20-40) % [place] % (Auto) 10.6 (2-11) % Eos % (Auto) 6.8 H (0-4) % Baso % (Auto) 0.8 (0-2) % Lymph # (Auto) 2.2 (1.2-4.9) X10*3/uL [place] # (Auto) 0.6 (0.1-1.2) X10*3/uL Eos # (Auto) 0.4 (0.0-0.4) X10*3/uL Baso # (Auto) 0.1 (0.0-0.2) X10*3/uL Abs Immat Gran (auto) 0.03 (0.00-0.03) X10*3/uL Absolute Neuts (auto) 2.7 (2.0-8.3) x10*3/uL Absolute Nucleated RBC 0.000 (0.0-0.012) X10*3/uL Nucleated RBC % (auto) 0.0 (0.0-0.2) /100WBC PT 20.2 H D (11.1-13.3) SEC INR 1.7 H (0.9-1.1) Sodium 142 (135-145) mmol/L Potassium 4.0 (3.3-5.1) mmol/L Chloride 113 H (96-108) mmol/L Carbon Dioxide 20 L (22-29) mmol/L Anion Gap 13 (12-20) BUN 15 (9-16) mg/dL Creatinine 0.85 (0.5-1.4) mg/dL Estim Creat Clear Calc 108.4 Estimated GFR > 60 Random Glucose 116 H (60-115) mg/dL Calcium 9.1 (8.4-10.2) mg/dL Magnesium 1.8 (1.6-2.6) mg/dL Total Bilirubin 0.8 (0.0-1.0) mg/dL AST 47 H (5-37) U/L ALT 40 (0-40) U/L Alkaline Phosphatase 253 H (39-117) U/L Troponin I High Sens 5.8 (<3.5-35.0) ng/L B-Natriuretic Peptide 169 H (<100) pg/mL Total Protein 7.0 (6.5-8.0) g/dL Albumin 3.5 (3.5-5.0) g/dL Lipase 17 (8-78) U/L Urine Color Yellow Urine Appearance Clear Urine pH 6.0 (5.0-9.0) Ur Specific [place] 1.020 (1.005-1.025) Urine Protein Trace (Neg-Trace) mg/dL Urine Glucose (UA) Negative (Negative) mg/dL Urine Ketones Negative (Negative) mg/dL Urine Blood Small (1+) H (Negative) Urine Nitrite Negative (Negative) Ur Leukocyte Esterase Negative (Negative) Urine RBC 6-10 H (0-2) /HPF Urine WBC 0-5 (0-5) /HPF Ur Squamous Epith Cells 0-2 (0-2) /HPF Urine Bacteria None Seen (None Seen) Hyaline Casts 0-2 (0-2) /LPF Urine Opiates Screen POSITIVE H (Not Detect) Ur Buprenorphine Scrn Not Detected (Not Detect) ng/mL Ur Oxycodone Screen Not Detected (Not Detect) ng/mL Urine Methadone Screen Positive H (Not Detect) ng/mL Urine Fentanyl Screen POSITIVE H (Not Detect) Ur Barbiturates Screen Not Detected (Not Detect) Ur Phencyclidine Scrn Not Detected (Not Detect) Ur Amphetamines Screen Not Detected (Not Detect) U Benzodiazepines Scrn Not Detected (Not Detect) Urine Cocaine Screen POSITIVE H (Not Detect) U Marijuana (THC) Screen POSITIVE H (Not Detect) Ethyl Alcohol < 10 mg/dL Independent Interpretation I performed an independent interpretation of an: EKG and Plain X-Ray Interpretation: My interpretation is in agreement with the radiologist's impression of this imaging study. - EXAMINATION: XR CHEST CLINICAL INFORMATION: Chest pain. COMPARISON: CTA chest 03/30/2024. Chest radiograph 03/30/2024. TECHNIQUE: Frontal view of the chest was obtained. FINDINGS: Normal heart size. Redemonstration of median sternotomy and indeterminate wiring overlying the left hemithorax, similar to prior. Unchanged mild diffuse interstitial prominence. No focal consolidation. New trace blunting of the bilateral costophrenic angles. No pneumothorax. No acute osseous findings. XR/XR chest 1V IMPRESSION: 1. New trace blunting of the bilateral costophrenic angles which could be related with subsegmental atelectasis or trace amount of pleural fluid. 2. No focal consolidation. 3. No pneumothorax. Dictated By: Gloria Kern Signed By: Electronically signed by Gloria Kern 05/07/24 1549 - Vent. Rate: 104 BPM Atrial Rate: 104 BPM P-R Int: 136 ms QRS Dur: 094 ms QT Int: 348 ms P-R-T Axes: 042 065 039 degrees QTc Int: 457 ms Sinus tachycardia Incomplete right bundle branch block T wave abnormality, consider anterior ischemia Abnormal ECG When compared with ECG of 01-APR-2024 11:05, Questionable change in QRS axis Nonspecific T wave abnormality, improved in Lateral leads DD/ 1449 Radiology Impression Discussion of test interpretation with radiology: I have reviewed the radiologist's reading. Discharge Plan Discharge Clinical Impression: Chest pain Patient Disposition: Left W/O Completing Treatment Prescriptions: No Action Xarelto 20 mg Tablet 20 mg PO DAILY Qty: 30 0RF Rx Instructions: must administer with evening meal nicotine 21 mg/24 hr Patch 24 Hour 21 mg transdermal DAILY Qty: 30 0RF spironolactone 25 mg Tablet 25 mg PO DAILY 30 Days Qty: 30 0RF Protocol: Hold for SBP< HOLD for SBP < : 90 clonidine HCl 0.1 mg Tablet 0.1 mg PO TID PRN (Reason: Anxiety) hydroxyzine HCl 50 mg Tablet 50 mg PO TID PRN (Reason: Anxiety) methadone [Methadose] 10 mg/mL concentrate 90 mg PO DAILY Rx Instructions: Partial Fill upon patient request. magnesium oxide 400 mg magnesium tablet 400 mg PO BID Qty: 60 0RF albuterol sulfate 90 mcg/actuation HFA aerosol inhaler 2 puff inhalation Q6H PRN (Reason: Respiratory Distress) gabapentin 100 mg capsule 100 mg PO TID
[2024-05-07 15:13] LABS: MANUAL DIFF FLAG NO
[2024-05-07 15:16] LABS: Appearance Urine Clear; Color Urine Yellow; Glucose Urine UA Negative (Negative); Leukocyte Esterase Urine Negative (Negative); Nitrite Urine Negative (Negative); UMIC TRIGGER UACC YES; Urine Blood Small (1+) (Negative); Urine Ketones Negative (Negative); Urine Protein Trace mg/dL (Neg-Trace)
[2024-05-07 15:20] LABS: INTERNATIONAL NORM RATIO 1.7 (0.9-1.1); Prothrombin Time 20.2 SEC (11.1-13.3)
[2024-05-07 15:21] LABS: Bacteria Urine None Seen (None Seen); Hyaline Casts Urine 0-2 /LPF (0-2); Squamous Epithelial Cell Urine 0-2 /HPF (0-2); WBC Urine 0-5 /HPF (0-5)
[2024-05-07 15:26] LABS: Amphetamine Screen Urine Not Detected (Not Detect); Barbiturates, Urine Not Detected (Not Detect); Basophils Absolute Auto 0.1 X10*3/uL (0.0-0.2); Basophils Percent Auto 0.8 % (0-2); Benzodiazepines Screen Urine Not Detected (Not Detect); Buprenorphine Scr Not Detected (Not Detect); Cannabinoid Screen Urine POSITIVE (Not Detect); Cocaine Screen Urine POSITIVE (Not Detect); Eosinophils Absolute Auto 0.4 X10*3/uL (0.0-0.4); Eosinophils Percent Auto 6.8 % (0-4); Fentanyl, urine POSITIVE (Not Detect); Hematocrit 37.6 % (42.0-52.0); Hemoglobin 12.2 g/dl (14.0-18.0); Imm Gran Abs Auto 0.03 X10*3/uL (0.00-0.03); Imm Gran Pct Auto 0.5 % (0.0-0.4); Lymphocytes Absolute Auto 2.2 X10*3/uL (1.2-4.9); Mean Corpuscular HGB Conc 32.4 g/dl (31.0-36.0); Mean Corpuscular Hemoglobin 27.7 pg (27.0-33.0); Mean Corpuscular Volume 85.5 fL (80.0-98.0); Mean Platelet Volume 9.8 fL (9.4-12.4); Methadone Screen, Urine Positive (Not Detect); Monocytes Absolute Auto 0.6 X10*3/uL (0.1-1.2); Monocytes Percent Auto 10.6 % (2-11); Neutrophils Absolute Auto 2.7 x10*3/uL (2.0-8.3); Neutrophils Percent Auto 45.3 % (45-73); Opiate Screen Urine POSITIVE (Not Detect); Oxycodone Screen Urine Not Detected (Not Detect); Phencyclidine Screen Urine Not Detected (Not Detect); Platelet Count 236 X10*3/uL (160-400); Red Cell Distribution Width 16.9 % (11.0-16.0); White Blood Count 6.1 X10*3/uL (4.8-10.8)
[2024-05-07 15:40] LABS: Troponin-I High Sensitivity 5.8 ng/L (<3.5-35.0)
[2024-05-07 15:43] LABS: Alanine Aminotransferase 40 U/L (0-40); Albumin Level 3.5 g/dL (3.5-5.0); Alkaline Phosphatase 253 U/L (39-117); Anion Gap 13 (12-20); Aspartate Amino Transferase 47 U/L (5-37); Bilirubin Total 0.8 mg/dL (0.0-1.0); Blood Urea Nitrogen 15 mg/dL (9-16); Calcium 9.1 mg/dL (8.4-10.2); Carbon Dioxide 20 mmol/L (22-29); Chloride 113 mmol/L (96-108); Creatinine Clr Calc Pharmacy 108.4; Estimated Glomerular Filt Rate > 60; Ethanol < 10 mg/dL; Glucose Random 116 mg/dL (60-115); Lipase 17 U/L (8-78); Magnesium 1.8 mg/dL (1.6-2.6); Sodium 142 mmol/L (135-145)
[2024-05-07 15:46] LABS: B Type Natriuretic Peptide 169 pg/mL (<100)
--- NOTE | 2024-05-07 15:59 | PC.NURSE ---
pt left WR without alerting staff
== END 2024-05-07 16:29 | disposition left against medical advice (07) ==
LOC: HO.ED 16:23
PROVIDERS: Physician Assistant Medical; Emergency Provider Emergency Medicine
DX: R07.9 Chest pain, unspecified (principal); R06.02 Shortness of breath; F11.20 Opioid dependence, uncomplicated; Z53.21 Procedure and treatment not carried out due to patient leaving prior to being seen by health care provider; Z79.899 Other long term (current) drug therapy
CPT/HCPCS: 36415; 71045; 80053; 80307; 81001; 83690; 83735; 83880; 84484; 85025; 85610; 93005; 99281; 99283

== ENCOUNTER → 2024-05-07 14:46 | Outpatient (BNV) | payer MEDICAID, SELFPAY | PROVIDERS: Emergency Provider Emergency Medicine; Visit Provider Internal Medicine Cardiovascular Disease | DX: R94.31 Abnormal electrocardiogram [ECG] [EKG] (principal) | CPT/HCPCS: 93010 ==

== ENCOUNTER 2024-05-19 23:07 | Emergency (ER) | payer MEDICAID, SELFPAY ==
--- NOTE | 2024-05-19 | ECG_ITS ---
Test Reason : chest pain Blood Pressure : / mmHG Vent. Rate : 121 BPM Atrial Rate : 121 BPM P-R Int : 132 ms QRS Dur : 088 ms QT Int : 350 ms P-R-T Axes : 069 082 053 degrees QTc Int : 497 ms Sinus tachycardia Possible Left atrial enlargement T wave abnormality, consider anterior ischemia Abnormal ECG When compared with ECG of 07-MAY-2024 14:49, No significant change was found Referred By: Generic ED Physician Electronically Signed By:Pedro Chang
--- NOTE | ~2024-05-19 | XR_ITS ---
EXAMINATION: XR CHEST CLINICAL INFORMATION: Chest pain COMPARISON: 05/07/2024 TECHNIQUE: 2 views of the chest were obtained. FINDINGS: Redemonstrated and and epicardial pacer leads in the left chest. Redemonstrated sternal hardware. Lung volumes are symmetric. No focal consolidation is seen. No evidence of pneumothorax, pleural effusion, or pulmonary edema. The cardiomediastinal contour is unremarkable. No acute osseous findings are seen. XR/XR chest 2V IMPRESSION: No acute cardiopulmonary findings.
--- NOTE | ~2024-05-19 | CT_ITS ---
EXAMINATION: CT ANGIOGRAM OF THE CHEST WITH AND WITHOUT CONTRAST (CT PULMONARY ANGIOGRAM FOR PE) CLINICAL INFORMATION: Reason for Exam chest pain COMPARISON: 03/30/2024 TECHNIQUE: Prior to contrast administration, noncontrast localization images were obtained. Subsequently, multidetector volumetric imaging was performed from the thoracic inlet to below the diaphragms following the administration of 65 mL Omnipaque 350 intravenous contrast. No contrast reaction reported Sagittal, coronal, and MIP oblique sagittal reformatted images were obtained on the CT workstation, uploaded to PACS, and reviewed. This CT examination was performed using dose optimization techniques as appropriate, variously including the following: *Automated exposure control *Adjustment of mA and/or kV according to patient size (this includes techniques or standardized protocols for targeted exams where dose is matched to indication/reason for exam; i.e. extremities or head) *Use of iterative reconstruction technique Total exam dose-length product 240 mGy-cm FINDINGS: QUALITY OF STUDY/CONTRAST BOLUS: Satisfactory. PULMONARY ARTERIES: No filling defects are seen in the main, lobar, or segmental pulmonary arteries to suggest the presence of pulmonary emboli. THORACIC AORTA: No aneurysm or dissection. Atherosclerotic plaque and calcification are present along the descending aorta. LUNG: Mucoid impaction is seen within some segments of the bilateral lower lobe airways. Persistent curvilinear regions of opacity at the lung apices, right greater than left, suggestive of scarring. Curvilinear left basilar opacity favors atelectasis or scarring. No new acute consolidation is seen. Limited detailed parenchymal evaluation due to motion artifact. A couple small nodular foci appear without significant change such as in the right middle lobe on image [id number]/511 and anterior left upper lobe on image 176. PLEURA: No pleural effusion or pneumothorax. MEDIASTINUM: Thyroid gland appears grossly unremarkable. No discrete mediastinal lymphadenopathy is seen. Mild cardiomegaly without pericardial effusion. No evidence of septal bowing or right heart strain. Biventricular epicardial pacer wires are noted. CORONARY ARTERY CALCIFICATION: None visualized on this study. CHEST WALL/AXILLA: No axillary or internal mammary lymphadenopathy. OSSEOUS STRUCTURES: Sternal wires and hardware again demonstrated. UPPER ABDOMEN: Small volume of perihepatic and perisplenic ascites. Mild reflux of contrast into the hepatic veins which can be seen with elevated right heart pressures. CT/CT angio chest PE protocol IMPRESSION: 1. No pulmonary embolus identified. 2. Mild cardiomegaly with reflux of contrast into the hepatic veins which can be seen with elevated right heart pressures. 3. Mucoid impaction within some segments of the bilateral lower lobe airways. 4. Persistent curvilinear regions of opacity at the lung apices, right greater than left, suggestive of scarring. 5. Small volume of perihepatic and perisplenic ascites. VTE: negative.
--- OUTSIDE RECORDS SUMMARY | 2024-05-19 23:18 | XMS_ITS ---
Author Organization [facility] Address [address] [place] [address] Care Team Providers Care Poultry Cleaner Name Role Phone Nirali Isbell Primary Care Provider Michael Mane Jr Unavailable REASON FOR VISIT new pt appt Encounters Encounter Location Date Provider Diagnosis [facility] [address] [place] [address] 09/28/2023 Michael Escamilla Jr PLAN OF TREATMENT No Information
--- OUTSIDE RECORDS SUMMARY | 2024-05-19 23:19 | XMS_ITS ---
Author Organization [facility] Address [address] [place] [address] Care Team Providers Care Safety Net Maker Name Role Phone Nirali Isbell Primary Care Provider UnavailMichael Castanon Jr Unavailable [phone] REASON FOR VISIT Patient presents today for ChRONIC HEP C Encounters Encounter Location Date Provider Diagnosis [facility] [address] [place] [address] 09/24/2023 Michael Escamilla Jr PLAN OF TREATMENT No Information
--- OUTSIDE RECORDS SUMMARY | 2024-05-19 23:19 | XMS_ITS | Patient Health Record ---
Author Organization [facility] Address [address] [place] [address] Care Team Providers Care Labor Gang Supervisor Name Role Phone Nirali Isbell Primary Care Provider Michael Mane Jr Unavailable REASON FOR REFERRAL Referring Provider First Name Nirali Referring Provider Last Name Oren Referred Organization [facility] Referred Provider Michael Escamilla Jr Referred Address [address],[address], Referred Provider Specialty Gastroentero logy Referral Priority Routine SOCIAL HISTORY Sex Assigned At : Social History Observation Description Sex Assigned At Unknown Encounters Encounter Location Date Provider Diagnosis [facility] [address] [place] [phone] 09/24/[address] [facility] [address] [place] [phone] 09/24/[address] [facility] [address] [place] [phone] 09/28/2023 Michael Escamilla Jr PLAN OF TREATMENT No Information Insurance Providers Payer Name Payer Address Payer Phone Subscriber Number Group Number Insured Name Patient Relationship to Insured Coverage Start Date Coverage End Date [employer] [address] [place] [address] [phone] [id number] RANDY MYLES Self - patient is the insured
--- OUTSIDE RECORDS SUMMARY | 2024-05-19 23:19 | XMS_ITS ---
Author Organization [facility] Address [address] [place] [address] Care Team Providers Care Pattern And Chain Maker Name Role Phone Nirali Isbell Primary Care Provider Michael Mane Jr Unavailable REASON FOR VISIT cancel OV Encounters Encounter Location Date Provider Diagnosis [facility] [address] [place] [address] 09/24/2023 Michael Escamilla Jr PLAN OF TREATMENT No Information
[2024-05-19 23:31] VITALS: BP 126/70; PULSE 120; RESP 22; TEMP 36.2; O2SAT 95; BMI 23.4
[2024-05-19 23:52] LABS: Basophils Absolute Auto 0.1 X10*3/uL (0.0-0.2); Basophils Percent Auto 0.5 % (0-2); Eosinophils Absolute Auto 0.1 X10*3/uL (0.0-0.4); Eosinophils Percent Auto 0.5 % (0-4); Hematocrit 37.7 % (42.0-52.0); Hemoglobin 12.4 g/dl (14.0-18.0); Imm Gran Abs Auto 0.11 X10*3/uL (0.00-0.03); Imm Gran Pct Auto 0.6 % (0.0-0.4); Lymphocytes Absolute Auto 1.7 X10*3/uL (1.2-4.9); Lymphocytes Percent Auto 10.1 % (20-40); MANUAL DIFF FLAG SCAN; Mean Corpuscular HGB Conc 32.9 g/dl (31.0-36.0); Mean Corpuscular Hemoglobin 27.4 pg (27.0-33.0); Mean Corpuscular Volume 83.4 fL (80.0-98.0); Mean Platelet Volume 10.7 fL (9.4-12.4); Monocytes Absolute Auto 1.5 X10*3/uL (0.1-1.2); Monocytes Percent Auto 8.8 % (2-11); Neutrophils Absolute Auto 13.7 x10*3/uL (2.0-8.3); Neutrophils Percent Auto 79.5 % (45-73); Platelet Count 229 X10*3/uL (160-400); Red Blood Count 4.52 X10*6/uL (4.60-5.80); Red Cell Distribution Width 16.4 % (11.0-16.0); SCAN SMEAR FLAG 1; White Blood Count 17.3 X10*3/uL (4.8-10.8)
[2024-05-19 23:58] LABS: INTERNATIONAL NORM RATIO 4.7 (0.9-1.1); Prothrombin Time 57.1 SEC (11.1-13.3)
[2024-05-20 00:05] LABS: Alanine Aminotransferase 48 U/L (0-40); Alkaline Phosphatase 258 U/L (39-117); Anion Gap 17 (12-20); Aspartate Amino Transferase 52 U/L (5-37); Bilirubin Total 2.2 mg/dL (0.0-1.0); Blood Urea Nitrogen 22 mg/dL (9-16); Calcium 9.7 mg/dL (8.4-10.2); Carbon Dioxide 16 mmol/L (22-29); Chloride 108 mmol/L (96-108); Creatinine Clr Calc Pharmacy 101.1; Estimated Glomerular Filt Rate > 60; Glucose Random 64 mg/dL (60-115); Potassium 3.8 mmol/L (3.3-5.1); Sodium 137 mmol/L (135-145)
[2024-05-20 00:11] LABS: SLIDE REVIEW VERIFIED; Troponin-I High Sensitivity 12.9 ng/L (<3.5-35.0)
[2024-05-20 00:17] LABS: D Dimer High Sensitivity 1301 NG/ML
--- NOTE | 2024-05-20 00:18 | ED_ITS ---
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 Patient reports left-sided chest pain has been constant for 2 years He states his pain is worse with deep inspiration His pain is currently 8/10. He states his symptoms are worse with exertion table especially the shortness of breath He reports running out of his albuterol inhaler He reports active IV drug abuse as recently as 1 prior to arrival He denies any fevers, chills Patient states he is [facility] at a [facility] Related Data Home Medications ?Medication ?Instructions ?Recorded ?Confirmed albuterol sulfate 90 mcg/actuation 2 puff inhalation Q6H PRN 04/13/23 04/28/24 aerosol inhaler Respiratory Distress gabapentin 100 mg capsule 100 mg PO TID 04/13/23 04/28/24 clonidine HCl 0.1 mg tablet 0.1 mg PO TID PRN Anxiety 03/30/24 03/30/24 hydroxyzine HCl 50 mg tablet 50 mg PO TID PRN Anxiety 03/30/24 03/30/24 methadone 10 mg/mL oral 90 mg PO DAILY 03/31/24 04/28/24 concentrate (Methadose) Previous Rx's ?Medication ?Instructions ?Recorded rivaroxaban 20 mg tablet (Xarelto) 20 mg PO DAILY #30 tabs 08/02/22 nicotine 21 mg/24 hr daily 21 mg transdermal DAILY #30 ea 03/20/23 transdermal patch spironolactone 25 mg tablet 25 mg PO DAILY 30 days #30 tabs 03/23/23 magnesium oxide 400 mg PO BID #60 tabs 04/01/24 Allergies Allergy/AdvReac Type Severity Reaction Status Date / Time No Known Allergies Allergy Verified 05/19/24 23:33 [No Known Allergies*] Review of Systems 2 Constitutional: Constitutional: Denies body ache(s), Denies chills and Denies fever(s) Eyes: Eyes: Denies blurry vision ENT: Denies vertigo Cardiovascular: Cardiovascular: Reports chest pain, Reports chest pain at rest, Reports chest pain with activity, Reports rapid heart rate and Reports dyspnea Respiratory: Respiratory: Reports pain on inspiration and Reports dyspnea Gastrointestinal: Gastrointestinal: Denies abdominal pain, Denies nausea and Denies vomiting Musculoskeletal: Musculoskeletal: Denies back pain Integumentary/Breasts: Skin/Breast: Denies rash Neurologic: Denies vertigo [facility] Past Medical History Medical History Opioid use disorder, severe, dependence Substance abuse MSSA bacteremia Bacteremia Bacteremia Right heart failure Steatosis, liver Tricuspid valve stenosis Anasarca HCV (hepatitis C virus) Endocarditis Pulmonary embolism Surgical History History of tricuspid valve replacement with bioprosthetic valve Social History Social History Household Members: None Household Members Other:: none. homeless Housing: Homeless Do you presently have visiting nurse or other home services: No Unable to assess alcohol history related to: Unknown Alcohol intake: former Patient Tobacco Use Status: Tobacco use Unknown Tobacco use type: Cigarette Cigarette Packs Per Day: 1 Cigarettes Per Day: 20.0 Years Smoked: 10 Second Hand Smoke Exposure: No Substance Use Type: IV Drugs Advance Directives: Yes Advance Directives on File: Yes Advance Directives Date on File: 04/16/21 Do you have a plan to hurt others: No Plan service: No Current occupational status: unemployed Physical Exam 2 Vital Signs: Vital Signs: Last Vital Signs Temp 97.2 F 05/19/24 23:31 Pulse 120 H 05/19/24 23:31 Resp 22 H 05/19/24 23:31 BP 126/70 05/19/24 23:31 Pulse Ox 95 05/19/24 23:31 O2 Del Method Room Air 05/19/24 23:31 BMI result Body Mass Index 23.4 Const: General: comfortable, no acute distress, alert and awake Nutritional Appearance: thin Orientation/consciousness: patient oriented x3 HEENT: Head: Yes normocephalic and Yes atraumatic Throat: Yes posterior oropharynx normal Eyes: Eyelids: Yes eyelids normal Conjunctivae: conjunctivae normal S clerae: sclerae normal Corneas: corneas normal Pupils: Equal, round and reactive pupils present EOM: EOMs intact bilaterally Neck: Neck: Yes full ROM Resp: Effort & Inspection: normal respiratory effort, able to speak in complete sentences, no audible wheezes and not labored Auscultation: clear to auscultation bilaterally Cardio: Rate: tachycardic Rhythm: regular rhythm Heart sounds: no gallops, no murmurs and no rubs GI: Inspection: No distended Palpation (GI): Soft to palpation, not firm, nontender, no guarding and not rigid Skin: General skin exam: elasticity normal Neuro: General: patient oriented x3 Cranial nerves: Yes CN's II-XII intact bilaterally, Yes Equal, round and reactive pupils present and Yes Bilaterally intact EOM present Cognition (Neuro): normal cognition Medical Decision Making Medical Decision Making MDM Narrative: 33-year-old male past medical history as documented above presents for evaluation of chest pain or shortness of breath. He is tachycardic and tachypneic on arrival. This may be related to recent IV drug abuse. He also has a history of septic emboli, noncompliant with Xarelto. He has no fever, no murmurs rubs, or gallops on exam to suggest active endocarditis. [place] [address]. Again, this may be reactive to his active drug abuse. Plan for EKG, chest x-ray, labs. The patient states that he would not like to be considered for rehab because ?the night will lose my bed at the penitentiary. ? Differential Diagnosis Differential Diagnoses: The differential diagnosis associated with the presentation includes IV drug abuse Endocarditis Pulmonary embolism Septic emboli Medication noncompliance Anxiety Lab Data [facility] Lab Attestation statement: I reviewed the patient's lab results. Leukocytosis of 17.3 K with a mild normocytic anemia consistent with baseline. The patient does have a left shift. Coagulation studies are significant for a PT of 57.1 and INR of 4.7. His D-dimer is elevated to 1301. Chemistries are significant for common dioxide of 16 a BUN of 22, a mild transaminitis consistent with baseline. The patient does have a known history of hepatitis-C. Initial troponin of 12.9 08/01/24 23:46 05/19/24 23:45 Labs: Lab Results 05/19/24 05/19/24 05/20/24 Range/Units 23:45 23:46 00:44 WBC 17.3 H (4.8-10.8) X10*3/uL RBC 4.52 L (4.60-5.80) X10*6/uL Hgb 12.4 L (14.0-18.0) g/dl Hct 37.7 L (42.0-52.0) % MCV 83.4 (80.0-98.0) fL MCH 27.4 (27.0-33.0) pg MCHC 32.9 (31.0-36.0) g/dl RDW 16.4 H (11.0-16.0) % Plt Count 229 (160-400) X10*3/uL MPV 10.7 (9.4-12.4) fL Immature Gran % (Auto) 0.6 H (0.0-0.4) % Neut % (Auto) 79.5 H (45-73) % Lymph % (Auto) 10.1 L (20-40) % Coos % (Auto) 8.8 (2-11) % Eos % (Auto) 0.5 (0-4) % Baso % (Auto) 0.5 (0-2) % Lymph # (Auto) 1.7 (1.2-4.9) X10*3/uL Coos # (Auto) 1.5 H (0.1-1.2) X10*3/uL Eos # (Auto) 0.1 (0.0-0.4) X10*3/uL Baso # (Auto) 0.1 (0.0-0.2) X10*3/uL Abs Immat Gran (auto) 0.11 H (0.00-0.03) X10*3/uL Absolute Neuts (auto) 13.7 H (2.0-8.3) x10*3/uL Absolute Nucleated RBC 0.000 (0.0-0.012) X10*3/uL Nucleated RBC % (auto) 0.0 (0.0-0.2) /100WBC Smear Tech's Comments VERIFIED PT 57.1 H D (11.1-13.3) SEC INR 4.7 H D (0.9-1.1) D-Dimer High Sensitivty 1301 NG/ML Sodium 137 (135-145) mmol/L Potassium 3.8 (3.3-5.1) mmol/L Chloride 108 (96-108) mmol/L Carbon Dioxide 16 L (22-29) mmol/L Anion Gap 17 (12-20) BUN 22 H (9-16) mg/dL Creatinine 0.92 (0.5-1.4) mg/dL Estim Creat Clear Calc 101.1 Estimated GFR > 60 Random Glucose 64 (60-115) mg/dL Lactic Acid 1.2 (0.5-2.0) mmol/L Calcium 9.7 D (8.4-10.2) mg/dL Total Bilirubin 2.2 H (0.0-1.0) mg/dL AST 52 H (5-37) U/L ALT 48 H (0-40) U/L Alkaline Phosphatase 258 H (39-117) U/L Troponin I High Sens 12.9 D (<3.5-35.0) ng/L Total Protein 8.0 (6.5-8.0) g/dL Albumin 4.0 (3.5-5.0) g/dL Discharge Plan Discharge Clinical Impression: Chest pain, Active substance abuse Patient Disposition: Still a Patient Instructions: Chest Pain (ED), Polysubstance Abuse (ED) Additional Instructions: Your workup in the ER today was reassuring. Return if you wish to reconsider possible detox placement We will call you if blood cultures are positive Prescriptions: No Action Xarelto 20 mg Tablet 20 mg PO DAILY Qty: 30 0RF Rx Instructions: must administer with evening meal nicotine 21 mg/24 hr Patch 24 Hour 21 mg transdermal DAILY Qty: 30 0RF spironolactone 25 mg Tablet 25 mg PO DAILY 30 Days Qty: 30 0RF Protocol: Hold for SBP< HOLD for SBP < : 90 clonidine HCl 0.1 mg Tablet 0.1 mg PO TID PRN (Reason: Anxiety) hydroxyzine HCl 50 mg Tablet 50 mg PO TID PRN (Reason: Anxiety) methadone [Methadose] 10 mg/mL concentrate 90 mg PO DAILY Rx Instructions: Partial Fill upon patient request. magnesium oxide 400 mg magnesium tablet 400 mg PO BID Qty: 60 0RF albuterol sulfate 90 mcg/actuation HFA aerosol inhaler 2 puff inhalation Q6H PRN (Reason: Respiratory Distress) gabapentin 100 mg capsule 100 mg PO TID Print Language: Albanian
[2024-05-20 01:03] LABS: Lactic Acid 1.2 mmol/L (0.5-2.0)
[2024-05-20 02:00] VITALS: BP 114/73; PULSE 92; RESP 16; TEMP 37; O2SAT 96
[2024-05-20] MEDS: iohexoL 350 MG/ML 100 ML INFUS..BTL 65 ML IV (02:13)
[2024-05-20 02:33] LABS: Troponin-I High Sensitivity 11.7 ng/L (<3.5-35.0)
[2024-05-20 04:00] VITALS: BP 112/90; PULSE 76; RESP 16; TEMP 37.1; O2SAT 97
[2024-05-20 04:57] VITALS: BP 112/90; PULSE 76; RESP 16; TEMP 37.1; O2SAT 97
== END 2024-05-20 04:58 | disposition home or self-care (01) ==
PROVIDERS: Emergency Medicine; Physician Assistant; Emergency Provider Emergency Medicine
DX: R07.9 Chest pain, unspecified (principal); F19.10 Other psychoactive substance abuse, uncomplicated; R06.02 Shortness of breath; R00.0 Tachycardia, unspecified; F11.20 Opioid dependence, uncomplicated; F17.210 Nicotine dependence, cigarettes, uncomplicated; Z86.711 Personal history of pulmonary embolism; Z59.01 Sheltered homelessness; Z79.899 Other long term (current) drug therapy; Z79.01 Long term (current) use of anticoagulants
CPT/HCPCS: 36415; 71046; 71275; 80053; 83605; 84484; 85025; 85379; 85610; 87040; 93005; 99284; 99285; Q9967

== ENCOUNTER → 2024-05-19 23:09 | Outpatient (BNV) | payer MEDICAID, SELFPAY | PROVIDERS: Emergency Provider Emergency Medicine; Visit Provider Internal Medicine Cardiovascular Disease | DX: R07.9 Chest pain, unspecified (principal); R00.0 Tachycardia, unspecified; R94.31 Abnormal electrocardiogram [ECG] [EKG] | CPT/HCPCS: 93010 ==

== ENCOUNTER 2024-07-26 12:49 | Outpatient (REF) | payer MEDICAID, SELFPAY ==
--- NOTE | ~2024-07-26 | US_ITS ---
EXAMINATION: US RETROPERITONEAL LIMITED (RENAL ONLY) CLINICAL INFORMATION: Patient with hematuria. COMPARISON: CT abdomen without and with contrast 10/27/2023. Ultrasound abdomen limited 03/12/2023. Ultrasound abdomen complete 04/17/2021. TECHNIQUE: Real-time imaging of the kidneys. FINDINGS: RIGHT KIDNEY: 9.8 x 4.5 x 5.5 cm (SAG x AP x TRV). The kidney is normal in size, contour, and echogenicity. Renal cortical thickness is normal. No calculi or focal parenchymal lesions. No hydronephrosis. LEFT KIDNEY: 10.0 x 4.8 x 5.1 cm (SAG x AP x TRV). The kidney is normal in size, contour, and echogenicity. Renal cortical thickness is normal. No calculi or focal parenchymal lesions. No hydronephrosis. ADDITIONAL FINDINGS: Small amount of ascites is seen within the right lower quadrant of the abdomen and adjacent to the liver and spleen. Note is made of splenomegaly with a long length of 14.2 cm US/US renal BI IMPRESSION: 1. Normal appearance of the bilateral kidneys. 2. Small amount of ascites. 3. Splenomegaly. Electronically signed by: Mick Leo MD 09/14/2024 12:30 PM [facility]
== END 2024-07-26 12:50 | disposition home or self-care (01) ==
LOC: HO.US 12:49
PROVIDERS: Visit Provider Nurse Practitioner
DX: R31.9 Hematuria, unspecified (principal)
CPT/HCPCS: 76775

== ENCOUNTER 2024-07-28 06:54 | Emergency (ER) | payer MEDICAID, SELFPAY ==
[2024-07-28 07:07] VITALS: BP 112/80; PULSE 85; O2SAT 99
[2024-07-28 07:16] VITALS: BP 94/64; PULSE 78; RESP 18; TEMP 36.8; O2SAT 96
[2024-07-28 07:30] VITALS: BMI 22.8
--- OUTSIDE RECORDS SUMMARY | 2024-07-28 07:41 | XMS_ITS | Patient Health Record ---
Author Organization [facility] Address [address] [place] [address] Care Team Providers Care Land Degradation Analyst Name Role Phone Nirali Isbell Primary Care Provider Michael Mane Jr Unavailable REASON FOR REFERRAL Referring Provider First Name Nirali Referring Provider Last Name Oren Referred Organization [facility] Referred Provider Michael Escamilla Jr Referred Address [address],[address], Referred Provider Specialty Gastroentero logy Referral Priority Routine SOCIAL HISTORY Sex Assigned At : Social History Observation Description Sex Assigned At Unknown Encounters Encounter Location Date Provider Diagnosis [facility] [address] [place] [phone] 09/24/2023 Michael Escamilla Jr [facility] [address] [place] [phone] 09/24/2023 Michael Escamilla Jr [facility] [address] [place] [phone] 09/28/2023 Michael Escamilla Jr PLAN OF TREATMENT No Information Insurance Providers Payer Name Payer Address Payer Phone Subscriber Number Group Number Insured Name Patient Relationship to Insured Coverage Start Date Coverage End Date MEDICAID OF [employer] [address] [place] [phone] [id number] RANDY MYLES Self - patient is the insured
--- OUTSIDE RECORDS SUMMARY | 2024-07-28 07:41 | XMS_ITS ---
Author Organization [facility] Address [address] [place] [address] Care Team Providers Care Residential Leasing Agent Name Role Phone Nirali Isbell Primary Care Provider Michael Mane Jr Unavailable REASON FOR VISIT cancel OV Encounters Encounter Location Date Provider Diagnosis [facility] [address] [place] [address] 09/24/2023 Michael Escamilla Jr PLAN OF TREATMENT No Information
--- OUTSIDE RECORDS SUMMARY | 2024-07-28 07:41 | XMS_ITS ---
Author Organization [facility] Address [address] [place] [address] Care Team Providers Care Revenue Research Analyst Name Role Phone Nirali Isbell Primary Care Provider Michael Mane Jr Unavailable [phone] REASON FOR VISIT new pt appt Encounters Encounter Location Date Provider Diagnosis [facility] [address] [place] [address] 09/28/2023 Michael Escamilla Jr PLAN OF TREATMENT No Information
--- OUTSIDE RECORDS SUMMARY | 2024-07-28 07:41 | XMS_ITS ---
Author Organization [facility] Address [address] [place] [address] Care Team Providers Care Telephony Engineer Name Role Phone Nirali Isbell Primary Care Provider UnavailMichael Castanon Jr Unavailable [phone] REASON FOR VISIT Patient presents today for ChRONIC HEP C Encounters Encounter Location Date Provider Diagnosis [facility] [address] [place] [address] 09/24/2023 Michael Escamilla Jr PLAN OF TREATMENT No Information
--- NOTE | 2024-07-28 08:19 | PC.NURSE ---
Pt refusing lab draw, they don't usually do this when I come in, I come in for this often. They usually give me antibiotics and discharge me. MD Najera made aware.
--- NOTE | 2024-07-28 08:23 | ED_ITS ---
HPI - Skin/Abscess/Foreign Bdy General Chief complaint: Skin/Abscess/Foreign Body Stated complaint: BLEEDING FROM LEG, BLEEDING CONTROL Time Seen by Provider: 07/28/24 07:25 Source: patient and old records reviewed Mode of arrival: ambulatory Limitations: no limitations History of Present Illness ED Provider: LINO HPI narrative: 33 yo male with PMH of varicose veins, opiate use disorder, lyte abnormalities, endocarditis, PE on xarelto, s/p tricuspid valve replacement, hep C, here with R medial malleolus varicose vein rupture this AM and bleeding - wrapped it with a t shirt. He denies any dizziness or weakness. Refuses CBC just wants it treated. He is eating and drinking during eval MD complaint: other (varicose vein) Onset (ago): hour(s) (1) Tetanus up to date: yes Location: [facility] Severity: mild Relieving factors: other (pressure) Exacerbating factors: none Context: other (prior hx of bleeding) Associated symptoms: denies other symptoms Treatments prior to arrival: bandages Related Data Home Medications ?Medication ?Instructions ?Recorded ?Confirmed albuterol sulfate 90 mcg/actuation 2 puff inhalation Q6H PRN 04/13/23 04/28/24 aerosol inhaler Respiratory Distress gabapentin 100 mg capsule 100 mg PO TID 04/13/23 04/28/24 clonidine HCl 0.1 mg tablet 0.1 mg PO TID PRN Anxiety 03/30/24 03/30/24 hydroxyzine HCl 50 mg tablet 50 mg PO TID PRN Anxiety 03/30/24 03/30/24 methadone 10 mg/mL oral 90 mg PO DAILY 03/31/24 04/28/24 concentrate (Methadose) Previous Rx's ?Medication ?Instructions ?Recorded rivaroxaban 20 mg tablet (Xarelto) 20 mg PO DAILY #30 tabs 08/02/22 nicotine 21 mg/24 hr daily 21 mg transdermal DAILY #30 ea 03/20/23 transdermal patch spironolactone 25 mg tablet 25 mg PO DAILY 30 days #30 tabs 03/23/23 magnesium oxide 400 mg PO BID #60 tabs 04/01/24 Allergies Allergy/AdvReac Type Severity Reaction Status Date / Time No Known Allergies Allergy Verified 07/28/24 07:33 [No Known Allergies*] Review of Systems Review of Systems: Constitutional : No Fever, No Chills, Cardiovascular : No Chest Pain, No SOB Respiratory : No Dyspnea Gastrointestinal : No abdominal pain Musculoskeletal : No Joint Swelling Skin : No rash, positive skin lesion Neuro : No Weakness, No Numbness Psych : No SI/HI All other systems reviewed and are negative [facility] Past Medical History Attestation statement: The following information was validated with the patient. Source: old records reviewed Medical History Opioid use disorder, severe, dependence Substance abuse MSSA bacteremia Bacteremia Bacteremia Right heart failure Steatosis, liver Tricuspid valve stenosis Anasarca HCV (hepatitis C virus) Endocarditis Pulmonary embolism Surgical History History of tricuspid valve replacement with bioprosthetic valve Social History Social History Household Members: None Household Members Other:: none. homeless Housing: Homeless Do you presently have visiting nurse or other home services: No Unable to assess alcohol history related to: Unknown Alcohol intake: former Patient Tobacco Use Status: Tobacco use Unknown Tobacco use type: Cigarette Cigarette Packs Per Day: 1 Cigarettes Per Day: 20.0 Years Smoked: 10 Second Hand Smoke Exposure: No Substance Use Type: IV Drugs Advance Directives: Yes Advance Directives on File: Yes Advance Directives Date on File: 04/16/21 service: No Current occupational status: unemployed Physical Exam Vital Signs: Vital Signs: Last Vital Signs Temp 98.2 F 07/28/24 07:16 Pulse 78 07/28/24 07:16 Resp 18 07/28/24 07:16 BP 94/64 07/28/24 07:16 Pulse Ox 96 07/28/24 07:16 O2 Del Method Room Air 07/28/24 07:16 BMI result Body Mass Index 22.8 Appearance: Alert. Oriented X3. No acute distress. eating and drinking Eyes: Pupils equal, round and reactive to light. ENT: Pharynx normal. Neck: Normal inspection. Neck supple. CVS: Normal heart rate and rhythm. Pulses normal. Respiratory: No respiratory distress. Breath sounds normal. Abdomen: Soft and nontender. Skin: Skin warm and dry. yellowish color skin color. Normal skin turgor. Extremities: No lower extremity edema. R medial malleolus there is a persistent bleeding varicose vein not spurting but when dressing removed it continues to ooze Neuro: Oriented X 3. No motor deficit. No sensory deficit. Course Course Course Narrative: awake alert and angry he has to wait due to other critical patients in the ED leaving AMA Medical Decision Making Medical Decision Making [facility] Narrative: 33 yo male with PMH of varicose veins, opiate use disorder, lyte abnormalities, endocarditis, PE, s/p tricuspid valve replacement, hep C here with bleeding varicose vein at this time initially tried pressure dressing still bleeding hoped to try glue but the patient is bleeding and it will not hold will inject lidocaine with epi and try one stitch for control Differential Diagnosis Differential Diagnoses: The differential diagnosis associated with the presen tation includes varicose vein, anemia but refuses labs Admission/Observation Consideration of admission/observation: Escalation of care including admission/observation considered refusing to stay for suture as I discussed just wants it wrapped and wants to leave External Record Review External record reviewed: Inpatient record Tests considered The following testing was considered but not selected: refuses labs Discharge Plan Discharge Clinical Impression: Varicose vein of leg Qualifiers: Varicose vein complication: unspecified Laterality: right Qualified Code(s): I83.91 - Asymptomatic varicose veins of right lower extremity Patient Disposition: Home, Self-Care Instructions: Against Medical Advice (ED), Bleeding Disorders (ED) Additional Instructions: change dressing in 24 hours return for worsening bleeding or concerns Prescriptions: No Action Xarelto 20 mg Tablet 20 mg PO DAILY Qty: 30 0RF Rx Instructions: must administer with evening meal nicotine 21 mg/24 hr Patch 24 Hour 21 mg transdermal DAILY Qty: 30 0RF spironolactone 25 mg Tablet 25 mg PO DAILY 30 Days Qty: 30 0RF Protocol: Hold for SBP< HOLD for SBP < : 90 clonidine HCl 0.1 mg Tablet 0.1 mg PO TID PRN (Reason: Anxiety) hydroxyzine HCl 50 mg Tablet 50 mg PO TID PRN (Reason: Anxiety) methadone [Methadose] 10 mg/mL concentrate 90 mg PO DAILY Rx Instructions: Partial Fill upon patient request. magnesium oxide 400 mg magnesium tablet 400 mg PO BID Qty: 60 0RF albuterol sulfate 90 mcg/actuation HFA aerosol inhaler 2 puff inhalation Q6H PRN (Reason: Respiratory Distress) gabapentin 100 mg capsule 100 mg PO TID Print Language: Armenian
[2024-07-28 09:14] VITALS: BP 94/64; PULSE 78; RESP 18; TEMP 36.8; O2SAT 96
== END 2024-07-28 09:17 | disposition home or self-care (01) ==
PROVIDERS: Emergency Provider Emergency Medicine
DX: I83.91 Asymptomatic varicose veins of right lower extremity (principal); F17.210 Nicotine dependence, cigarettes, uncomplicated; Z79.01 Long term (current) use of anticoagulants; Z79.899 Other long term (current) drug therapy
CPT/HCPCS: 99282

== ENCOUNTER 2024-07-29 02:42 | Emergency (ER) | payer MEDICAID, SELFPAY ==
[2024-07-29 02:48] VITALS: BP 109/71; PULSE 76; RESP 18; TEMP 36.6; O2SAT 96
[2024-07-29 03:01] VITALS: BP 136/76; PULSE 78; O2SAT 95
[2024-07-29 03:02] VITALS: BMI 22.6
--- OUTSIDE RECORDS SUMMARY | 2024-07-29 03:16 | XMS_ITS ---
Author Organization [facility] Address [address] [place] [address] Care Team Providers Care Daycare Teacher Name Role Phone Nirali Isbell Primary Care Provider UnavailMichael Castanon Jr Unavailable REASON FOR VISIT Patient presents today for ChRONIC HEP C Encounters Encounter Location Date Provider Diagnosis [facility] [address] [place] [address] 09/24/2023 Michael Escamilla Jr PLAN OF TREATMENT No Information
--- OUTSIDE RECORDS SUMMARY | 2024-07-29 03:16 | XMS_ITS ---
Author Organization [facility] Address [address] [place] [address] Care Team Providers Care Market Editor Name Role Phone Nirali Isbell Primary Care Provider Michael Mane Jr Unavailable [phone] REASON FOR VISIT cancel OV Encounters Encounter Location Date Provider Diagnosis [facility] [address] [place] [address] 09/24/2023 Michael Escamilla Jr PLAN OF TREATMENT No Information
--- OUTSIDE RECORDS SUMMARY | 2024-07-29 03:16 | XMS_ITS ---
Author Organization [facility] Address [address] [place] [address] Care Team Providers Care Attendant Arcade Name Role Phone Nirali Isbell Primary Care Provider Michael Mane Jr Unavailable [phone] REASON FOR VISIT new pt appt Encounters Encounter Location Date Provider Diagnosis [facility] [address] [place] [address] 09/28/2023 Michael Escamilla Jr PLAN OF TREATMENT No Information
--- OUTSIDE RECORDS SUMMARY | 2024-07-29 03:17 | XMS_ITS | Patient Health Record ---
Author Organization [facility] Address [address] [place] [address] Care Team Providers Care Vamp Stitcher Name Role Phone Nirali Isbell Primary Care Provider Michael Mane Jr Unavailable [phone] REASON FOR REFERRAL Referring Provider First Name Nirali Referring Provider Last Name Oren Referred Organization [facility] Referred Provider Michael Escamilla Jr Referred Address [address],[address], Referred Provider Specialty Gastroentero logy Referral Priority Routine SOCIAL HISTORY Sex Assigned At : Social History Observation Description Sex Assigned At Unknown Encounters Encounter Location Date Provider Diagnosis [facility] [address] [place] [phone] 09/24/2023 Michael Escamilla Jr [facility] [address] [place] [phone] 09/24/2023 Michael Escamilla Jr [facility] [address] [place] [phone] 09/28/2023 Michael Escamilla Jr PLAN OF TREATMENT No Information Insurance Providers Payer Name Payer Address Payer Phone Subscriber Number Group Number Insured Name Patient Relationship to Insured Coverage Start Date Coverage End Date MEDICAID OF [employer] [address] [place] [phone] [id number] RANDY MYLES Self - patient is the insured
[2024-07-29 04:20] VITALS: BP 90/53; PULSE 70; RESP 20; TEMP 36.6; O2SAT 97
--- NOTE | 2024-07-29 04:24 | MHC.EDTECH ---
at this time when checking vitals pt continued to dose off, RN made aware
--- NOTE | 2024-07-29 05:29 | ED_ITS ---
HPI - General Adult General Chief complaint: Wound/Laceration Stated complaint: PT CUT VERICOSE VEIN , BLOOD LOSS PER EMS Time Seen by Provider: 07/29/24 04:46 Source: patient and EMS Mode of arrival: EMS Limitations: no limitations History of Present Illness ED Provider: Dr. Kelly Mcgovern HPI narrative: Patient comes to the emergency room complaining of a varicose vein bleed on the left side. Patient was here yesterday for a similar complaint. However he was on the right leg. Patient states that he picked a scab and started bleeding. Related Data Home Medications ?Medication ?Instructions ?Recorded ?Confirmed albuterol sulfate 90 mcg/actuation 2 puff inhalation Q6H PRN 04/13/23 04/28/24 aerosol inhaler Respiratory Distress gabapentin 100 mg capsule 100 mg PO TID 04/13/23 04/28/24 clonidine HCl 0.1 mg tablet 0.1 mg PO TID PRN Anxiety 03/30/24 03/30/24 hydroxyzine HCl 50 mg tablet 50 mg PO TID PRN Anxiety 03/30/24 03/30/24 methadone 10 mg/mL oral 90 mg PO DAILY 03/31/24 04/28/24 concentrate (Methadose) Previous Rx's ?Medication ?Instructions ?Recorded rivaroxaban 20 mg tablet (Xarelto) 20 mg PO DAILY #30 tabs 08/02/22 nicotine 21 mg/24 hr daily 21 mg transdermal DAILY #30 ea 03/20/23 transdermal patch spironolactone 25 mg tablet 25 mg PO DAILY 30 days #30 tabs 03/23/23 magnesium oxide 400 mg PO BID #60 tabs 04/01/24 Allergies Allergy/AdvReac Type Severity Reaction Status Date / Time No Known Allergies Allergy Verified 07/29/24 03:05 [No Known Allergies*] Review of Systems Review of Systems: Constitutional : No Weight loss, No Fever, No Chills, No Night Sweats, No Fatigue, No Malaise ENT/Mouth : No Hearing loss, No Ear Pain, No Nasal Congestion, No Sinus Pain, No Hoarseness, No sore throat, No Rhinorrhea, No Swallowing Difficulty Eyes: No Eye Pain, No Swelling, No Redness, No Foreign Body, No Discharge, No Vision Changes Cardiovascular : No Chest Pain, No SOB, No Dyspnea on Exertion, No Orthopnea, No Edema, No Palpitations Respiratory : No Cough, No Sputum, No Wheezing, No Smoke Exposure, No Dyspnea Gastrointestinal : No Nausea, No Vomiting, No Diarrhea, No Constipation, No abdominal Pain, No Hematochezia, No Melena Genitourinary : no irregular bleeding, No Dysuria, No Urinary Frequency, No Hematuria, No Urinary Incontinence, No Urgency, No Flank Pain, No Urinary Flow Changes, No Hesitancy Musculoskeletal : No joint pain, No Myalgias, No Joint Swelling Skin : Pinpoint profuse bleeding from a varicose vein Neuro : No Weakness, No Numbness, No Paresthesias, No Loss of Consciousness, No Dizziness, No Headache Psych : No Anxiety/Panic, No Depression, No SI/HI/AH/VH, No Social Issues, Heme/Lymph: No Bruising, No Bleeding,No Lymphadenopathy Endocrine : No Polyuria, No Polydipsia, No Temperature Intolerance PMFSH Past Medical History Medical History Opioid use disorder, severe, dependence Substance abuse MSSA bacteremia Bacteremia Bacteremia Right heart failure Steatosis, liver Tricuspid valve stenosis Anasarca HCV (hepatitis C virus) Endocarditis Pulmonary embolism Surgical History History of tricuspid valve replacement with bioprosthetic valve Social History Social History Household Members: None Household Members Other:: none. homeless Housing: Homeless Do you presently have visiting nurse or other home services: No Unable to assess alcohol history related to: Unknown Alcohol intake: current Alcohol intake frequency: 3 or more drinks per day Patient Tobacco Use Status: Tobacco use Unknown Tobacco use type: Cigarette Cigarette Packs Per Day: 1 Cigarettes Per Day: 20.0 Years Smoked: 10 Smoked in Last 30 Days: Yes Second Hand Smoke Exposure: No Use of substances other than those prescribed or required for medical reasons: Yes Substance Use Type: Heroin and Marijuana Advance Directives: Yes Advance Directives on File: Yes Advance Directives Date on File: 04/16/21 Do you have a plan to hurt others: No Plan service: No Current occupational status: unemployed Physical Exam ED Vital Signs: Vital Signs - 24 hr 07/29/24 02:48 07/29/24 04:20 Temperature 97.8 F 97.8 F Pulse Rate 76 70 Respiratory Rate 18 20 Blood Pressure 109/71 90/53 L Pulse Oximetry 96 97 Oxygen Delivery Method Room Air Room Air BMI result Body Mass Index 22.6 Const Other: Appearance: Alert. Oriented X3. No acute distress. Eyes: Pupils equal, round and reactive to light. ENT: Pharynx normal. Neck: Normal inspection. Neck supple. No lymph nodes noted. No crepitus CVS: Normal heart rate and rhythm. Pulses normal. Normal S1 and S2 Respiratory: No respiratory distress. Breath sounds normal. No Wheezing. No rales Abdomen: Soft and nontender. No rigidity. No distention. Skin: Skin warm and dry. Patient has multiple varicose veins. On the left lower extremity, patient has 2 openings were patient is bleeding from next to each other, mm apart. However, the bleeding is very profuse Extremities: No lower extremity edema. No Lacerations. No Rash Neuro: Oriented X 3. No motor deficit. No sensory deficit. Moving all extremities. No slurred speech. CN 2 through 12 grossly intact Psych: calm, cooperative, normal affect Medical Decision Making Medical Decision Making MDM Narrative: Lidocaine was injected. Couple of stitches were applied but patient continues bleeding profusely. Overall, due to the profuse bleeding, patient did a proximally he has 15 stitches the need overlapping just to control the bleeding. Surgicel was applied and Coban was applied. The bleeding was controlled. Patient's toes were checked after: Was applied, patient has normal capillary refill, no numbness or tingling. Patient states that the COVID does not feel tight I discussed with the patient that he needs to follow-up with vascular surgery. It is possible that when the stitches get removed, he may rebleed and it is best if it is done with vascular surgery. Patient will follow-up with Dr. Cardona Patient agrees with plan. Critical Care Time Critical Care Time Critical Care Time: Yes Total Critical Care Time: 45 Attestation: I have personally provided critical care time. Time includes review of lab data, radiology results, discussion with consultants, and monitoring for potential decompensation. Intervention performed as documented. Discharge Plan Discharge Clinical Impression: Bleeding from varicose vein Patient Disposition: Home, Self-Care Instructions: Care For Your Stitches (ED) Additional Instructions: Please follow-up with your primary care physician tomorrow. If you have any worsening or new symptoms, please return to the emergency room or call 911 Prescriptions: No Action Xarelto 20 mg Tablet 20 mg PO DAILY Qty: 30 0RF Rx Instructions: must administer with evening meal nicotine 21 mg/24 hr Patch 24 Hour 21 mg transdermal DAILY Qty: 30 0RF spironolactone 25 mg Tablet 25 mg PO DAILY 30 Days Qty: 30 0RF Protocol: Hold for SBP< HOLD for SBP < : 90 clonidine HCl 0.1 mg Tablet 0.1 mg PO TID PRN (Reason: Anxiety) hydroxyzine HCl 50 mg Tablet 50 mg PO TID PRN (Reason: Anxiety) methadone [Methadose] 10 mg/mL concentrate 90 mg PO DAILY Rx Instructions: Partial Fill upon patient request. magnesium oxide 400 mg magnesium tablet 400 mg PO BID Qty: 60 0RF albuterol sulfate 90 mcg/actuation HFA aerosol inhaler 2 puff inhalation Q6H PRN (Reason: Respiratory Distress) gabapentin 100 mg capsule 100 mg PO TID Referrals: Alex Cardona MD [Physician] - 08/01/24 Print Language: Luxembourgish
[2024-07-29 06:05] VITALS: BP 90/53; PULSE 70; RESP 20; TEMP 36.6; O2SAT 97
== END 2024-07-29 05:40 | disposition home or self-care (01) ==
PROVIDERS: Emergency Provider Emergency Medicine
DX: S81.802A Unspecified open wound, left lower leg, initial encounter (principal); X58.XXXA Exposure to other specified factors, initial encounter; I83.892 Varicose veins of left lower extremity with other complications; F17.210 Nicotine dependence, cigarettes, uncomplicated; Z79.01 Long term (current) use of anticoagulants; Z79.899 Other long term (current) drug therapy; Y93.9 Activity, unspecified; Y92.9 Unspecified place or not applicable; Y99.9 Unspecified external cause status
CPT/HCPCS: 12001; 99284

== ENCOUNTER 2024-08-05 11:15 | Emergency (ER) | payer MEDICAID, SELFPAY ==
[2024-08-05 11:29] VITALS: BP 117/78; BP 138/60; PULSE 82; PULSE 88; RESP 18; TEMP 37.1; O2SAT 95; O2SAT 97; BMI 22.1
--- OUTSIDE RECORDS SUMMARY | 2024-08-05 11:49 | XMS_ITS ---
Author Organization [facility] Address [address] [place] [address] Care Team Providers Care Web Architect Name Role Phone Nirali Isbell Primary Care Provider Michael Mane Jr Unavailable REASON FOR VISIT new pt appt Encounters Encounter Location Date Provider Diagnosis [facility] [address] [place] [address] 09/28/2023 Michael Escamilla Jr PLAN OF TREATMENT No Information
--- OUTSIDE RECORDS SUMMARY | 2024-08-05 11:49 | XMS_ITS ---
Author Organization [facility] Address [address] [place] [address] Care Team Providers Care Forging Machine Operator Name Role Phone Nirali Isbell Primary Care Provider Michael Mane Jr Unavailable [phone] REASON FOR VISIT cancel OV Encounters Encounter Location Date Provider Diagnosis [facility] [address] [place] [address] 09/24/2023 Michael Escamilla Jr PLAN OF TREATMENT No Information
--- OUTSIDE RECORDS SUMMARY | 2024-08-05 11:49 | XMS_ITS | Patient Health Record ---
Author Organization [facility] Address [address] [place] [address] Care Team Providers Care Lithograph Designer Name Role Phone Nirali Isbell Primary Care Provider Michael Mane Jr Unavailable [phone] REASON FOR REFERRAL Referring Provider First Name Nirali Referring Provider Last Name Oren Referred Organization [facility] Referred Provider Michael Escamilla Jr Referred Address [address],[address], Referred Provider Specialty Gastroentero logy Referral Priority Routine SOCIAL HISTORY Sex Assigned At : Social History Observation Description Sex Assigned At Unknown Encounters Encounter Location Date Provider Diagnosis [facility] [address] [place] [phone] 09/24/2023 Michael Escamilla Jr [facility] [address] [place] [phone] 09/24/2023 Michael Escamilla Jr [facility] [address] [place] [phone] 09/28/2023 Michael Escamilla Jr PLAN OF TREATMENT No Information Insurance Providers Payer Name Payer Address Payer Phone Subscriber Number Group Number Insured Name Patient Relationship to Insured Coverage Start Date Coverage End Date MEDICAID OF [employer] [address] [place] [phone] [id number] RANDY MYLES Self - patient is the insured
--- OUTSIDE RECORDS SUMMARY | 2024-08-05 11:49 | XMS_ITS ---
Author Organization [facility] Address [address] [place] [address] Care Team Providers Care Cemetery Counselor Name Role Phone Nirali Isbell Primary Care Provider UnavailMichael Castanon Jr Unavailable [phone] REASON FOR VISIT Patient presents today for ChRONIC HEP C Encounters Encounter Location Date Provider Diagnosis [facility] [address] [place] [address] 09/24/2023 Michael Escamilla Jr PLAN OF TREATMENT No Information
[2024-08-05] MEDS: Silver Nitrate Applicator STICK..EA. 1 APPL TOPICAL (12:40)
--- NOTE | 2024-08-05 13:21 | ED_ITS ---
HPI - Wound/Laceration General Chief Complaint: Wound/Laceration Stated Complaint: ANKLE BLEEDING,+THINNERS PER EMS Time Seen by Provider: 08/05/24 11:27 Source: patient Mode of arrival: EMS Limitations: no limitations History of Present Illness ED Provider: jonas ROSARIO narrative: Patient is 33 years old with history of substance abuse bacterial endocarditis status post aortic valve replacement on Xarelto with superficial comes here for bleeding from varicose veins in left lower extremity patient when seen here on 08/29/2024 for same was sutured and Surgicel was applied restarted bleeding again today no bleeding from any other place Related Data Home Medications ?Medication ?Instructions ?Recorded ?Confirmed albuterol sulfate 90 mcg/actuation 2 puff inhalation Q6H PRN 04/13/23 04/28/24 aerosol inhaler Respiratory Distress gabapentin 100 mg capsule 100 mg PO TID 04/13/23 04/28/24 clonidine HCl 0.1 mg tablet 0.1 mg PO TID PRN Anxiety 03/30/24 03/30/24 hydroxyzine HCl 50 mg tablet 50 mg PO TID PRN Anxiety 03/30/24 03/30/24 methadone 10 mg/mL oral 90 mg PO DAILY 03/31/24 04/28/24 concentrate (Methadose) Previous Rx's ?Medication ?Instructions ?Recorded rivaroxaban 20 mg tablet (Xarelto) 20 mg PO DAILY #30 tabs 08/02/22 nicotine 21 mg/24 hr daily 21 mg transdermal DAILY #30 ea 03/20/23 transdermal patch spironolactone 25 mg tablet 25 mg PO DAILY 30 days #30 tabs 03/23/23 magnesium oxide 400 mg PO BID #60 tabs 04/01/24 Allergies Allergy/AdvReac Type Severity Reaction Status Date / Time No Known Allergies Allergy Verified 08/05/24 11:34 [No Known Allergies*] Review of Systems 2 Review of Systems: Yes all other systems are reviewed and are negative PMFSH Past Medical History Medical History Opioid use disorder, severe, dependence Substance abuse MSSA bacteremia Bacteremia Bacteremia Right heart failure Steatosis, liver Tricuspid valve stenosis Anasarca HCV (hepatitis C virus) Endocarditis Pulmonary embolism Surgical History History of tricuspid valve replacement with bioprosthetic valve Social History Social History Household Members: None Household Members Other:: none. homeless Housing: Homeless Do you presently have visiting nurse or other home services: No Unable to assess alcohol history related to: Unknown Alcohol intake: current Alcohol intake frequency: 3 or more drinks per day Patient Tobacco Use Status: Tobacco use Unknown Tobacco use type: Cigarette Cigarette Packs Per Day: 1 Cigarettes Per Day: 20.0 Years Smoked: 10 Second Hand Smoke Exposure: No Substance Use Type: Heroin and Marijuana Advance Directives Date on File: 04/16/21 service: No Current occupational status: unemployed Physical Exam 2 Vital Signs: Vital Signs: Last Vital Signs Temp 97.8 F 08/05/24 13:37 Pulse 74 08/05/24 13:37 Resp 18 08/05/24 13:37 BP 126/84 08/05/24 13:37 Pulse Ox 98 08/05/24 13:37 O2 Del Method Room Air 08/05/24 13:37 BMI result Body Mass Index 22.1 Appearance: Alert. Oriented X3. No acute distress. ENT: Pharynx normal. Oral Mucosa moist Neck: Normal inspection. Neck supple. CVS: Normal heart rate and rhythm. Pulses normal. Aortic valve click++ Respiratory: No respiratory distress. Equal air entry bilateral, no wheezing/rales/rhonchi Skin: Skin warm and dry. Normal skin color. Normal skin turgor. Extremities: No lower extremity edema. Neuro: Oriented X 3. Extrem: Ankle/foot/toe images: 1. Bleeding from left lower extremity above ankle from the varicose vein from the previous sutured area Medications Administered Discontinued Medications Generic Name Dose Route Start Last Admin Trade Name Freq PRN Reason Stop Dose Admin Lidocaine/Epinephrine 10 ml 08/05/24 13:15 08/05/24 13:33 Lidocaine Hcl 1%/Epi 1:100,000 10 Ml Vial INFILTRATI 08/05/24 13:16 10 ml ONCE ONE Administration Silver Nitrate 1 appl 08/05/24 12:19 08/05/24 12:40 Silver Nitrate Applicator Stick..Ea. TOPICAL 08/05/24 12:20 1 appl ONCE ONE Administration Procedures Procedure Narrative Procedure Narrative: Suturing of superficial varicose vein left lower extremity using lidocaine with epi 1% used to infiltrate the surrounding area at least 5 Vicryl absorbable 3-0 sutures was applied at the feeding varicose vein bleeding stopped silver nitrate was also applied at the oozing area area of watch for 10 minutes no active bleeding nonadhesive dressing was applied with Derrick wrap Discharge Plan Discharge Clinical Impression: Bleeding from varicose veins of left lower extremity Patient Disposition: Home, Self-Care Instructions: Venous Insufficiency (DC) Additional Instructions: Local care as advised Prescriptions: No Action Xarelto 20 mg Tablet 20 mg PO DAILY Qty: 30 0RF Rx Instructions: must administer with evening meal nicotine 21 mg/24 hr Patch 24 Hour 21 mg transdermal DAILY Qty: 30 0RF spironolactone 25 mg Tablet 25 mg PO DAILY 30 Days Qty: 30 0RF Protocol: Hold for SBP< HOLD for SBP < : 90 clonidine HCl 0.1 mg Tablet 0.1 mg PO TID PRN (Reason: Anxiety) hydroxyzine HCl 50 mg Tablet 50 mg PO TID PRN (Reason: Anxiety) methadone [Methadose] 10 mg/mL concentrate 90 mg PO DAILY Rx Instructions: Partial Fill upon patient request. magnesium oxide 400 mg magnesium tablet 400 mg PO BID Qty: 60 0RF albuterol sulfate 90 mcg/actuation HFA aerosol inhaler 2 puff inhalation Q6H PRN (Reason: Respiratory Distress) gabapentin 100 mg capsule 100 mg PO TID Interventions: ED Discharge Assessment Last Done: 08/05/24 13:37 Discharge Date/Time: 08/05/24 13:38 Print Language: Khmer
[2024-08-05 13:27] VITALS: BP 126/84; PULSE 74; RESP 18; TEMP 36.6; O2SAT 98
[2024-08-05] MEDS: Lidocaine HCl 1%/Epi 1:100,000 10 ML VIAL INFILTRATI (13:33)
[2024-08-05 13:37] VITALS: BP 126/84; PULSE 74; RESP 18; TEMP 36.6; O2SAT 98
--- NOTE | 2024-08-05 13:37 | PC.NURSE ---
pt tolerated proceedure with Dr Bushra sumner. Sutures are disolvable.
== END 2024-08-05 13:38 | disposition home or self-care (01) ==
PROVIDERS: Emergency Provider Internal Medicine
DX: I83.892 Varicose veins of left lower extremity with other complications (principal); Z79.01 Long term (current) use of anticoagulants; Z79.899 Other long term (current) drug therapy
CPT/HCPCS: 35226; 99283; 99284; J2004

== ENCOUNTER 2024-08-06 23:39 | Emergency (ER) | payer MEDICAID, SELFPAY ==
[2024-08-06 23:49] VITALS: BP 122/64; PULSE 108; O2SAT 98
[2024-08-07 00:14] VITALS: BP 112/68; PULSE 96; RESP 20; O2SAT 97; BMI 23.4
[2024-08-07] MEDS: cephALEXin 500 MG CAPSULE PO (01:10)
--- NOTE | 2024-08-07 01:14 | ED_ITS ---
HPI - General Adult General Chief complaint: Extremity Injury, Lower Stated complaint: @[facility]/18 w/ ruptured vein, + swell +heat Time Seen by Provider: 08/07/24 00:35 Source: patient, RN notes reviewed and old records reviewed Mode of arrival: EMS Limitations: no limitations History of Present Illness ED Provider: Eliana HPI narrative: 33-year-old male presents for evaluation of left leg pain. Patient was seen here 3 times in the last 10 days for various issues with varicose veins and bleeding. He was most recently here on 08/05/24. He had 1 stitch placed to the left lower extremity due to a bleeding varicosity He reports the area overnight became red, painful with some drainage He denies any fevers, chills. The patient does have a history of PE on Xarelto as well as endocarditis due to IV drug abuse Related Data Home Medications ?Medication ?Instructions ?Recorded ?Confirmed albuterol sulfate 90 mcg/actuation 2 puff inhalation Q6H PRN 04/13/23 04/28/24 aerosol inhaler Respiratory Distress gabapentin 100 mg capsule 100 mg PO TID 04/13/23 04/28/24 clonidine HCl 0.1 mg tablet 0.1 mg PO TID PRN Anxiety 03/30/24 03/30/24 hydroxyzine HCl 50 mg tablet 50 mg PO TID PRN Anxiety 03/30/24 03/30/24 methadone 10 mg/mL oral 90 mg PO DAILY 03/31/24 04/28/24 concentrate (Methadose) Previous Rx's ?Medication ?Instructions ?Recorded rivaroxaban 20 mg tablet (Xarelto) 20 mg PO DAILY #30 tabs 08/02/22 nicotine 21 mg/24 hr daily 21 mg transdermal DAILY #30 ea 03/20/23 transdermal patch spironolactone 25 mg tablet 25 mg PO DAILY 30 days #30 tabs 03/23/23 magnesium oxide 400 mg PO BID #60 tabs 04/01/24 cephalexin 500 mg capsule 500 mg PO QID #28 caps 08/07/24 tramadol 50 mg tablet 50 mg PO Q6H PRN severe pain 08/07/24 (scale score 7-10) #12 tabs Allergies Allergy/AdvReac Type Severity Reaction Status Date / Time No Known Allergies Allergy Verified 08/07/24 00:16 [No Known Allergies*] Review of Systems 2 Constitutional: Constitutional: Denies body ache(s), Denies chills, Denies fever(s) and Denies headache(s) ENT: Denies headache(s) Cardiovascular: Cardiovascular: Denies chest pain and Denies dyspnea Respiratory: Respiratory: Denies cough and Denies dyspnea Gastrointestinal: Gastrointestinal: Denies abdominal pain Integumentary/Breasts: Skin/Breast: Reports erythema and Reports wounds Neurologic: Denies headache(s) [facility] Past Medical History Medical History Opioid use disorder, severe, dependence Substance abuse MSSA bacteremia Bacteremia Bacteremia Right heart failure Steatosis, liver Tricuspid valve stenosis Anasarca HCV (hepatitis C virus) Endocarditis Pulmonary embolism Surgical History History of tricuspid valve replacement with bioprosthetic valve Social History Social History Household Members: None Household Members Other:: none. homeless Housing: Homeless Do you presently have visiting nurse or other home services: No Unable to assess alcohol history related to: Unknown Alcohol intake: current Alcohol intake frequency: 3 or more drinks per day Patient Tobacco Use Status: Tobacco use Unknown Tobacco use type: Cigarette Cigarette Packs Per Day: 1 Cigarettes Per Day: 20.0 Years Smoked: 10 Second Hand Smoke Exposure: No Substance Use Type: Heroin and Marijuana Advance Directives Date on File: 04/16/21 Do you have a plan to hurt others: No Plan service: No Current occupational status: unemployed Physical Exam ED Vital Signs: Vital Signs - 24 hr 08/07/24 00:14 Pulse Rate 96 Respiratory Rate 20 Blood Pressure 112/68 Pulse Oximetry 97 Oxygen Delivery Method Room Air BMI result Body Mass Index 23.4 Const General: healthy appearing, comfortable, no acute distress, alert and awake Orientation/consciousness: patient oriented x3 HENMT Head: Yes normocephalic and Yes atraumatic Eyes Eyelids: Yes eyelids normal Conjunctivae: conjunctivae normal Sclerae: sclerae normal Corneas: corneas normal Pupils: Equal, round and reactive pupils present EOM: EOMs intact bilaterally Neck Neck: Yes full ROM Resp Effort & Inspection: normal respiratory effort, able to speak in complete sentences and not labored GI Inspection: No distended Palpation (GI): Soft to palpation, not firm, nontender, no guarding and not rigid Skin General skin exam: elasticity normal Neuro General: patient oriented x3 Cranial nerves: Yes Equal, round and reactive pupils present and Yes Bilaterally intact EOM present Cognition (Neuro): normal cognition Extrem Other: Patient has 1 this You +pitting edema to left lower extremity. He has a healing wound to the left medial lower leg. There is surrounding erythema with no significant drainage to the area. Medications Administered Discontinued Medications Generic Name Dose Route Start Last Admin Trade Name Freq PRN Reason Stop Dose Admin Cephalexin HCl 500 mg 08/07/24 00:46 08/07/24 01:10 Cephalexin 500 Mg Capsule PO 08/07/24 00:47 500 mg ONCE ONE Administration Tramadol HCl 50 mg 08/07/24 01:14 08/07/24 01:19 Tramadol Hcl 50 Mg Tablet PO 08/07/24 01:15 50 mg ONCE ONE Administration Medical Decision Making Medical Decision Making MDM Narrative: 33-year-old male presents for evaluation of pain, redness, swelling to left lower extremity. He is on Xarelto which she reports being compliant with, less likely to be DVT. Wound, cellulitis is the most likely diagnosis, the patient is afebrile. We will treat with cephalexin, the patient's vitals are stable, there was no evidence of sepsis. Given that he is on Xarelto we can not take NSAIDs, we will give him a short course of tramadol for pain control. Differential Diagnosis Differential Diagnoses: The differential diagnosis associated with the presentation includes Cellulitis Varicosity Leg pain DVT Discharge Plan Discharge Clinical Impression: Cellulitis Patient Disposition: Home, Self-Care Instructions: Cellulitis (ED) Additional Instructions: You have a skin infection of your left leg around your wound. You may apply warm compresses every 4 hours for the next 2 days. Take cephalexin 4 times daily for the next 7 days You may use Tylenol as needed for pain. Use tramadol for more severe, breakthrough pain This may make you drowsy, do not drink alcohol or drive after taking it Prescriptions: New cephalexin 500 mg capsule 500 mg PO QID Qty: 28 0RF tramadol 50 mg tablet 50 mg PO Q6H PRN (Reason: severe pain (scale score 7-10)) Qty: 12 0RF No Action Xarelto 20 mg Tablet 20 mg PO DAILY Qty: 30 0RF Rx Instructions: must administer with evening meal nicotine 21 mg/24 hr Patch 24 Hour 21 mg transdermal DAILY Qty: 30 0RF spironolactone 25 mg Tablet 25 mg PO DAILY 30 Days Qty: 30 0RF Protocol: Hold for SBP< HOLD for SBP < : 90 clonidine HCl 0.1 mg Tablet 0.1 mg PO TID PRN (Reason: Anxiety) hydroxyzine HCl 50 mg Tablet 50 mg PO TID PRN (Reason: Anxiety) methadone [Methadose] 10 mg/mL concentrate 90 mg PO DAILY Rx Instructions: Partial Fill upon patient request. magnesium oxide 400 mg magnesium tablet 400 mg PO BID Qty: 60 0RF albuterol sulfate 90 mcg/actuation HFA aerosol inhaler 2 puff inhalation Q6H PRN (Reason: Respiratory Distress) gabapentin 100 mg capsule 100 mg PO TID Print Language: Uzbek
[2024-08-07] MEDS: traMADoL HCL 50 MG TABLET PO (01:19)
--- OUTSIDE RECORDS SUMMARY | 2024-08-07 01:34 | XMS_ITS ---
Author Organization [facility] Address [address] [place] [address] Care Team Providers Care Public Health Training Assistant Name Role Phone Nirali Isbell Primary Care Provider UnavailMichael Castanon Jr Unavailable REASON FOR VISIT Patient presents today for ChRONIC HEP C Encounters Encounter Location Date Provider Diagnosis [facility] [address] [place] [address] 09/24/2023 Michael Escamilla Jr PLAN OF TREATMENT No Information
--- OUTSIDE RECORDS SUMMARY | 2024-08-07 01:34 | XMS_ITS ---
Author Organization [facility] Address [address] [place] [address] Care Team Providers Care Inspector Subassembly Name Role Phone Nirali Isbell Primary Care Provider Michael Mane Jr Unavailable REASON FOR VISIT cancel OV Encounters Encounter Location Date Provider Diagnosis [facility] [address] [place] [address] 09/24/2023 Michael Escamilla Jr PLAN OF TREATMENT No Information
--- OUTSIDE RECORDS SUMMARY | 2024-08-07 01:34 | XMS_ITS ---
Author Organization [facility] Address [address] [place] [address] Care Team Providers Care Cashier Parking Lot Name Role Phone Nirali Isbell Primary Care Provider Michael Mane Jr Unavailable REASON FOR VISIT new pt appt Encounters Encounter Location Date Provider Diagnosis [facility] [address] [place] [address] 09/28/2023 Michael Escamilla Jr PLAN OF TREATMENT No Information
--- OUTSIDE RECORDS SUMMARY | 2024-08-07 01:34 | XMS_ITS | Patient Health Record ---
Author Organization [facility] Address [address] [place] [address] Care Team Providers Care French Translator Name Role Phone Nirali Isbell Primary Care Provider Michael Mane Jr Unavailable REASON FOR REFERRAL Referring Provider First Name Nirali Referring Provider Last Name Oren Referred Organization [facility] Referred Provider Michael Escamilla Jr Referred Address [address],[address], Referred Provider Specialty Gastroentero logy Referral Priority Routine SOCIAL HISTORY Sex Assigned At : Social History Observation Description Sex Assigned At Unknown Encounters Encounter Location Date Provider Diagnosis [facility] [address] [place] [id number] 09/24/2023 Michael Escamilla Jr [facility] [address] [place] [phone] 09/24/2023 Michael Escamilla Jr [facility] [address] [place] [phone] 09/28/2023 Michael Escamilla Jr PLAN OF TREATMENT No Information Insurance Providers Payer Name Payer Address Payer Phone Subscriber Number Group Number Insured Name Patient Relationship to Insured Coverage Start Date Coverage End Date MEDICA[employer] [address] [place] [phone] [id number] RANDY MYLES Self - patient is the insured
--- NOTE | 2024-08-07 01:39 | PC.NURSE ---
Pt provided DC paperwork, pt awaiting crutches @ this time.
[2024-08-07 01:45] VITALS: BP 116/78; PULSE 92; RESP 20; TEMP -17.7; TEMP 0; O2SAT 97
== END 2024-08-07 01:45 | disposition home or self-care (01) ==
LOC: HO.ED 08-07 01:32
PROVIDERS: Emergency Provider Emergency Medicine
DX: L03.116 Cellulitis of left lower limb (principal); R60.0 Localized edema; Z86.711 Personal history of pulmonary embolism; Z79.01 Long term (current) use of anticoagulants; Z79.899 Other long term (current) drug therapy
CPT/HCPCS: 99283; 99284

== ENCOUNTER 2024-08-07 11:12 | Emergency (ER) | payer MEDICAID, SELFPAY ==
[2024-08-07 11:25] VITALS: BP 130/100; PULSE 92; O2SAT 97
--- NOTE | 2024-08-07 11:28 | ED_ITS ---
HPI - Wound/Laceration General Chief Complaint: General Medical Stated Complaint: BLEEDING VERICOSE VEIN,CONTROLLED PER EMS Time Seen by Provider: 08/07/24 11:28 Source: patient and RN notes reviewed Mode of arrival: ambulatory Limitations: no limitations History of Present Illness ED Provider: Alana Chan PA-C HPI narrative: This is a 33-year-old male, with a past medical history of varicose veins, opioid use disorder, endocarditis, PE on Xarelto, tricuspid valve replacement, hepatitis-C, who presents emergency department due to varicose bleeding on the left side. Patient has been seen here 3 times in the last 10 days for of the same complaint. He was seen on July 28 for bleeding varicose vein on the right lower leg where he had pressure dressing and glue without resolution of symptoms however left AMA. He returned here on July 29 where he had to varicose veins that were bleeding next to each other on his left lower leg, sutures were applied, however bleeding profusely. He had 15 sutures overlapping just a control the bleeding. Surgicel was applied and Coban was also applied. Bleeding was controlled afterwards. He was advised to follow-up with Dr. Cardona. He was then seen on August 05 for left lower extremity varicose bleeding. These were sutured using lidocaine with epinephrine, 5 Vicryl 3-0 sutures were applied. Silver nitrate was also used. He was then seen earlier this morning due to cellulitis of his left lower leg that was sutured previously this past week due to bleeding varicose veins. Patient reports here today as he developed left lower extremity bleeding which is above the bleeding site that was previously sutured on the left leg. He states that he has scratched at his left leg earlier today and noticed the bleeding. He immediately applied pressure and called the ambulance. He reports no other symptoms. No lightheadedness, dizziness, chest pain, shortness of breath, abdominal pain, nausea, vomiting or diarrhea. He was prescribed antibiotics or wound to his lower leg. He states that he has not started the antibiotics at home. No fevers or chills. Onset (ago): hour(s) Extremity Location: left: lower leg Place: home Treatments prior to arrival: bandage Related Data Home Medications ?Medication ?Instructions ?Recorded ?Confirmed albuterol sulfate 90 mcg/actuation 2 puff inhalation Q6H PRN 04/13/23 04/28/24 aerosol inhaler Respiratory Distress gabapentin 100 mg capsule 100 mg PO TID 04/13/23 04/28/24 clonidine HCl 0.1 mg tablet 0.1 mg PO TID PRN Anxiety 03/30/24 03/30/24 hydroxyzine HCl 50 mg tablet 50 mg PO TID PRN Anxiety 03/30/24 03/30/24 methadone 10 mg/mL oral 90 mg PO DAILY 03/31/24 04/28/24 concentrate (Methadose) Previous Rx's ?Medication ?Instructions ?Recorded rivaroxaban 20 mg tablet (Xarelto) 20 mg PO DAILY #30 tabs 08/02/22 nicotine 21 mg/24 hr daily 21 mg transdermal DAILY #30 ea 03/20/23 transdermal patch spironolactone 25 mg tablet 25 mg PO DAILY 30 days #30 tabs 03/23/23 magnesium oxide 400 mg PO BID #60 tabs 04/01/24 cephalexin 500 mg capsule 500 mg PO QID #28 caps 08/07/24 doxycycline hyclate 100 mg capsule 100 mg PO BID 7 days #14 caps 08/07/24 tramadol 50 mg tablet 50 mg PO Q6H PRN severe pain 08/07/24 (scale score 7-10) #12 tabs Allergies Allergy/AdvReac Type Severity Reaction Status Date / Time No Known Allergies Allergy Verified 08/07/24 11:33 [No Known Allergies*] Review of Systems 2 Review of Systems: Yes all other systems are reviewed and are negative Constitutional: Constitutional: Reports as per [facility] Past Medical History Attestation statement: The following information was validated with the patient. Medical History Opioid use disorder, severe, dependence Substance abuse MSSA bacteremia Bacteremia Bacteremia Right heart failure Steatosis, liver Tricuspid valve stenosis Anasarca HCV (hepatitis C virus) Endocarditis Pulmonary embolism Surgical History History of tricuspid valve replacement with bioprosthetic valve Social History Social History Household Members: None Household Members Other:: none. homeless Housing: Homeless Do you presently have visiting nurse or other home services: No Unable to assess alcohol history related to: Unknown Alcohol intake: never Patient Tobacco Use Status: Tobacco use Unknown Tobacco use type: Cigarette Cigarette Packs Per Day: 1 Cigarettes Per Day: 20.0 Years Smoked: 10 Second Hand Smoke Exposure: No Substance Use Type: Heroin Advance Directives: No Advance Directives Information Provided: No Advance Directives Date on File: 04/16/21 Do you have a plan to hurt others: No Plan service: No Current occupational status: unemployed Physical Exam 2 Vital Signs: Vital Signs: Last Vital Signs Temp 98.4 F 08/07/24 12:42 Pulse 76 08/07/24 12:42 Resp 17 08/07/24 12:42 BP 149/84 H 08/07/24 12:42 Pulse Ox 98 08/07/24 12:42 O2 Del Method Room Air 08/07/24 12:42 BMI result Body Mass Index 21.4 Const: General: cooperative, comfortable and no acute distress O rientation/consciousness: patient oriented x3 Limitations: no limitations HEENT: Head: Yes normal to inspection, Yes normocephalic and Yes atraumatic Ears: hearing grossly normal bilaterally General nose exam: Normal external nose present Face and sinus: Yes normal facial exam Mouth: Normal oral and palatal mucosa present, oropharynx normal and moist mucous membranes Throat: Yes posterior oropharynx normal Eyes: General: appearance normal, both eyes and all related structures E yelids: Yes eyelids normal Conjunctivae: conjunctivae normal Sclerae: s clerae normal Pupils: Equal, round and reactive pupils present EOM: EOMs intact bilaterally Neck: Neck: Yes normal visual inspection, Yes full ROM and Yes no lymphadenopathy Lymphatic: no lymphadenopathy noted Chest: Chest palpation & inspection: normal inspection of the chest Resp: Effort & Inspection: normal respiratory effort and able to speak in complete sentences Auscultation: clear to auscultation bilaterally, no crackles, no rales, no rhonchi and no wheezes Cardio: Rate: regular rate Rhythm: regular rhythm GI: Inspection: Yes normal to inspection Skin: Other: Left lower leg, mid medial fibular region with healing a wound with multiple dissolvable and ? Nylon sutures placed. Mild yellow purulent drainage noted. There is surrounding erythema and warmth. Tender to palpation. with 1+ pitting edema. Strong DP pulse. No calf tenderness. Just inferior to this region, there is a 1 mm dilated vein, with slight abrasion noted to the surface, no active bleeding. No surrounding erythema or warmth. Neuro: General: patient oriented x3 and moves all extremities Cranial nerves: Yes Equal, round and reactive pupils present Extrem: General: Yes normal to inspection Right upper extremity: normal to inspection Left upper extremity: normal to inspection Right lower extremity: normal to inspection Left lower extremity: normal to inspection Course Reevaluation(s) Reevaluation #1: Patient refusing tetanus in department. He understands the risks and benefits. Patient discharged with strict return precautions. Time: 12:44 Medications Administered Discontinued Medications Generic Name Dose Route Start Last Admin Trade Name Tavia PRN Reason Stop Dose Admin Cephalexin HCl 500 mg 08/07/24 12:14 08/07/24 12:26 Cephalexin 500 Mg Capsule PO 08/07/24 12:15 500 mg ONCE ONE Administration Diphtheria/Tetanus/Acell Pertussis 0.5 ml 08/07/24 12:14 08/07/24 12:27 Diphth,Pertus(Acell),Tet Adult 0.5 Ml Syringe IM 08/07/24 12:15 Not Given .ONCE ONE Doxycycline Monohydrate 100 mg 08/07/24 12:14 08/07/24 12:26 Doxycycline Monohydrate 100 Mg Capsule PO 08/07/24 12:15 100 mg ONCE ONE Administration Lidocaine/Epinephrine 10 ml 08/07/24 11:36 08/07/24 11:51 Lidocaine Hcl 1%/Epi 1:100,000 10 Ml Vial SUBCUT 08/07/24 11:37 Not Given ONCE ONE Medical Decision Making Medical Decision Making MDM Narrative: This is a 33-year-old male who presents emergency department due to bleeding left lower varicose vein. Patient has been seen here 3 times for bleeding varicose veins. He was also seen several hours ago due to left leg pain, and increased redness to wound. He was started on Keflex, he received his 1st dose of Keflex at 1:00 a.m. this morning. Keflex was sent to his pharmacy. He was also discharged on tramadol for pain. Patient afebrile, has only had 1 dose of antibiotics therefore will continue with antibiotics to treat for cellulitis. Dressing was removed, patient has no active varicosity noted however punctate non active bleeding varicosity noted that was Dermabonded and Steri-Strips. Patient tolerated procedure well without any complications or concerns. Area was wrapped with nonadherent dressing. Given patient's Keflex dosage is 4 times a day, he was given his 2nd dose in the department today. It is unclear when his last tetanus shot was, will update today. Added on doxy coverage to antibiotic regimen. Patient has follow-up with vascular surgery next week. Advised the importance of following up with them. He understands and agrees with plan. Given strict return precautions. Patient stable for discharge. Differential Diagnosis Differential Diagnoses: The differential diagnosis associated with the presentation includes Cellulitis, laceration, abrasion, varicose vein Admission/Observation Consideration of admission/observation: Escalation of care including admission/observation considered Procedures Procedure Narrative Procedure Narrative: Area was cleansed with saline. Dermabond was applied to varicosity as well as Steri-Strips. Patient tolerated procedure well. There was no active bleeding Discharge Plan Discharge Clinical Impression: Bleeding from varicose vein, Cellulitis and abscess of left lower extremity Patient Disposition: Home, Self-Care Instructions: Peripheral Vascular Disease (ED) Additional Instructions: You were seen in the emergency department due to a bleeding varicose vein. We cleansed the area, and applied skin glue and Steri-Strips. Allow these to fall off on their own. Do not pick at wound. You also have a skin infection that you started on antibiotics for early this morning. We gave you your 2nd dose in the department. I am also adding doxycycline which is a another antibiotic. Please take Keflex 500 mg 4 times per day. Please take doxycycline twice a day. Finish the entire course even if you are feeling better. It is very important that you continue taking these medications as skin infections can become very serious. You updated your tetanus shot in the department today. Please keep a close eye on your symptoms. Please return if any increased redness, swelling, pain occurs. If the area starts to rebleed, please apply direct pressure to the area. If this does not stop, please report to the emergency room for evaluation. If you develop any dizziness, lightheadedness, blurred vision, chest pain or shortness for breath, please seek emergent care. Prescriptions: New doxycycline hyclate 100 mg capsule 100 mg PO BID 7 Days Qty: 14 0RF No Action Xarelto 20 mg Tablet 20 mg PO DAILY Qty: 30 0RF Rx Instructions: must administer with evening meal nicotine 21 mg/24 hr Patch 24 Hour 21 mg transdermal DAILY Qty: 30 0RF spironolactone 25 mg Tablet 25 mg PO DAILY 30 Days Qty: 30 0RF Protocol: Hold for SBP< HOLD for SBP < : 90 clonidine HCl 0.1 mg Tablet 0.1 mg PO TID PRN (Reason: Anxiety) hydroxyzine HCl 50 mg Tablet 50 mg PO TID PRN (Reason: Anxiety) methadone [Methadose] 10 mg/mL concentrate 90 mg PO DAILY Rx Instructions: Partial Fill upon patient request. magnesium oxide 400 mg magnesium tablet 400 mg PO BID Qty: 60 0RF cephalexin 500 mg capsule 500 mg PO QID Qty: 28 0RF tramadol 50 mg tablet 50 mg PO Q6H PRN (Reason: severe pain (scale score 7-10)) Qty: 12 0RF albuterol sulfate 90 mcg/actuation HFA aerosol inhaler 2 puff inhalation Q6H PRN (Reason: Respiratory Distress) gabapentin 100 mg capsule 100 mg PO TID Interventions: ED Discharge Assessment Last Done: 08/07/24 12:42 Discharge Date/Time: 08/07/24 12:43 Print Language: Portuguese
[2024-08-07 11:29] VITALS: BP 101/64; PULSE 78; RESP 17; TEMP 36.6; O2SAT 98; BMI 21.4
--- NOTE | 2024-08-07 12:01 | PC.NURSE ---
vein/ l leg glued by AMARILYS Warner, pt tolerated well, dressing placed and bleeding has stopped
[2024-08-07] MEDS: Doxycycline Monohydrate 100 MG CAPSULE PO (12:26)
[2024-08-07] MEDS: cephALEXin 500 MG CAPSULE PO (12:26)
[2024-08-07 12:42] VITALS: BP 149/84; PULSE 76; RESP 17; TEMP 36.9; O2SAT 98
== END 2024-08-07 12:43 | disposition home or self-care (01) ==
PROVIDERS: Emergency Provider Emergency Medicine
DX: I83.892 Varicose veins of left lower extremity with other complications (principal); L03.116 Cellulitis of left lower limb; R60.0 Localized edema; Z86.711 Personal history of pulmonary embolism; Z79.01 Long term (current) use of anticoagulants; Z79.899 Other long term (current) drug therapy; F17.210 Nicotine dependence, cigarettes, uncomplicated
CPT/HCPCS: 12001; 96372; 99283; 99284

== ENCOUNTER 2024-08-07 17:00 | Emergency (ER) | payer MEDICAID, SELFPAY ==
[2024-08-07 17:16] VITALS: BP 131/71; BP 150/102; PULSE 101; PULSE 104; RESP 17; TEMP 36.8; O2SAT 98; BMI 19.7
--- NOTE | 2024-08-07 19:26 | PC.NURSE ---
Patients mother bedside
--- NOTE | 2024-08-07 19:57 | ED.WOUNDLAC ---
HPI - Wound/Laceration General Chief Complaint: Wound/Laceration Stated Complaint: VERICOSE VEIN/BLEEDING Time Seen by Provider: 08/07/24 19:55 Source: patient Mode of arrival: ambulatory Limitations: no limitations History of Present Illness ED Provider: Dr. Kelly Mcgovern HPI narrative: patient comes to the emergency room complaining of varicose veins. Patient belligerent towards the nurses and the techs. Patient states that earlier today he had a varicose vein bleed, he was able to control it, put Steri-Strips. Patient was seen here yesterday, patient was given antibiotics. Patient states that the bleeding stopped hours ago. When asked the patient what we can do today, patient upset, patient states that he came because he wants did wrapped up. this time, there is no active bleeding. Patient states that he has an appointment pending with vascular surgery. Related Data Home Medications ?Medication ?Instructions ?Recorded ?Confirmed albuterol sulfate 90 mcg/actuation 2 puff inhalation Q6H PRN 04/13/23 04/28/24 aerosol inhaler Respiratory Distress gabapentin 100 mg capsule 100 mg PO TID 04/13/23 04/28/24 clonidine HCl 0.1 mg tablet 0.1 mg PO TID PRN Anxiety 03/30/24 03/30/24 hydroxyzine HCl 50 mg tablet 50 mg PO TID PRN Anxiety 03/30/24 03/30/24 methadone 10 mg/mL oral 90 mg PO DAILY 03/31/24 04/28/24 concentrate (Methadose) Previous Rx's ?Medication ?Instructions ?Recorded rivaroxaban 20 mg tablet (Xarelto) 20 mg PO DAILY #30 tabs 08/02/22 nicotine 21 mg/24 hr daily 21 mg transdermal DAILY #30 ea 03/20/23 transdermal patch spironolactone 25 mg tablet 25 mg PO DAILY 30 days #30 tabs 03/23/23 magnesium oxide 400 mg PO BID #60 tabs 04/01/24 cephalexin 500 mg capsule 500 mg PO QID #28 caps 08/07/24 doxycycline hyclate 100 mg capsule 100 mg PO BID 7 days #14 caps 08/07/24 tramadol 50 mg tablet 50 mg PO Q6H PRN severe pain 08/07/24 (scale score 7-10) #12 tabs Allergies Allergy/AdvReac Type Severity Reaction Status Date / Time No Known Allergies Allergy Verified 08/07/24 17:17 [No Known Allergies*] Review of Systems Review of Systems: Constitutional : No Weight loss, No Fever, No Chills, No Night Sweats, No Fatigue, No Malaise ENT/Mouth : No Hearing loss, No Ear Pain, No Nasal Congestion, No Sinus Pain, No Hoarseness, No sore throat, No Rhinorrhea, No Swallowing Difficulty Eyes: No Eye Pain, No Swelling, No Redness, No Foreign Body, No Discharge, No Vision Changes Cardiovascular : No Chest Pain, No SOB, No Dyspnea on Exertion, No Orthopnea, No Edema, No Palpitations Respiratory : No Cough, No Sputum, No Wheezing, No Smoke Exposure, No Dyspnea Gastrointestinal : No Nausea, No Vomiting, No Diarrhea, No Constipation, No abdominal Pain, No Hematochezia, No Melena Genitourinary : no irregular bleeding, No Dysuria, No Urinary Frequency, No Hematuria, No Urinary Incontinence, No Urgency, No Flank Pain, No Urinary Flow Changes, No Hesitancy Musculoskeletal : No joint pain, No Myalgias, No Joint Swelling Skin : Complaining of varicose vein bleeding earlier today. but not bleeding at this time Neuro : No Weakness, No Numbness, No Paresthesias, No Loss of Consciousness, No Dizziness, No Headache Psych : No Anxiety/Panic, No Depression, No SI/HI/AH/VH, No Social Issues, Heme/Lymph: No Bruising, No Bleeding,No Lymphadenopathy Endocrine : No Polyuria, No Polydipsia, No Temperature Intolerance PMFSH Past Medical History Medical History Opioid use disorder, severe, dependence Substance abuse MSSA bacteremia Bacteremia Bacteremia Right heart failure Steatosis, liver Tricuspid valve stenosis Anasarca HCV (hepatitis C virus) Endocarditis Pulmonary embolism Surgical History History of tricuspid valve replacement with bioprosthetic valve Social History Social History Household Members: None Household Members Other:: none. homeless Housing: Homeless Do you presently have visiting nurse or other home services: No Unable to assess alcohol history related to: Unknown Alcohol intake: never Patient Tobacco Use Status: Tobacco use Unknown Tobacco use type: Cigarette Cigarette Packs Per Day: 1 Cigarettes Per Day: 20.0 Years Smoked: 10 Second Hand Smoke Exposure: No Substance Use Type: Heroin Advance Directives: Yes Advance Directives on File: Yes Advance Directives Date on File: 04/16/21 Do you have a plan to hurt others: No Plan service: No Current occupational status: unemployed Physical Exam Vital Signs: Vital Signs: Last Vital Signs Temp 98.3 F 08/07/24 20:07 Pulse 101 H 08/07/24 20:07 Resp 17 08/07/24 20:07 BP 131/71 08/07/24 20:07 Pulse Ox 98 08/07/24 20:07 O2 Del Method Room Air 08/07/24 20:07 BMI result Body Mass Index 19.7 Const: Other: Appearance: Alert. Oriented X3. No acute distress. Eyes: Pupils equal, round and reactive to light. ENT: Pharynx normal. Neck: Normal inspection. Neck supple. No lymph nodes noted. No crepitus CVS: Normal heart rate and rhythm. Pulses normal. Normal S1 and S2 Respiratory: No respiratory distress. Breath sounds normal. No Wheezing. No rales Abdomen: Soft and nontender. No rigidity. No distention. Skin: Skin warm and dry. Normal skin color. Normal skin turgor. Extremities: No lower extremity edema. No Lacerations. No Rash Patient has varicose veins in lower extremity. Patient was seen here for cellulitis in the left lower extremity. Patient was started on antibiotics. Patient states that he picked him up earlier today. Patient has varicose veins in both legs. Patient has Steri-Strips in varicose veins from earlier today. , no active bleeding. Neuro: Oriented X 3. No motor deficit. No sensory deficit. Moving all extremities. No slurred speech. CN 2 through 12 grossly intact Psych: calm, cooperative, normal affect Course Course Course Narrative: - patient in his room, yelling, complaining about the waiting time. Patient is not actively bleeding, patient's vitals are stable. - When I walked into the room, patient complaining that the doctor was very mean to him today. I informed the patient that he has not been seen by a doctor, I am the 1st provider to see him. Patient proceeded to falsely accuse the nurses and the techs of being mean to him. Medical Decision Making Medical Decision Making MDM Narrative: Discussed with the patient that at this time, we will not remove the Steri-Strips since he just put him on, no bleeding at this time. patient has varicose veins were covered - patient has a follow-up appointment with Dr. Cardona - I was informed by the patient's tag in the patient's nurses that the patient is being extremely rude to them. Patient keeps yelling, he does not like the way that his leg was wrapped, patient wants his legs wrapped a certain way. Unclear why patient is belligerent. - patient stable, not actively bleeding, instructed to start taking the antibiotics that were prescribed to him yesterday Discharge Plan Discharge Clinical Impression: Varicose vein of leg Patient Disposition: Home, Self-Care Instructions: Venous Insufficiency (DC) Additional Instructions: Please follow-up with your primary care physician tomorrow. If you have any worsening or new symptoms, please return to the emergency room or call 911 Prescriptions: No Action Xarelto 20 mg Tablet 20 mg PO DAILY Qty: 30 0RF Rx Instructions: must administer with evening meal nicotine 21 mg/24 hr Patch 24 Hour 21 mg transdermal DAILY Qty: 30 0RF spironolactone 25 mg Tablet 25 mg PO DAILY 30 Days Qty: 30 0RF Protocol: Hold for SBP< HOLD for SBP < : 90 clonidine HCl 0.1 mg Tablet 0.1 mg PO TID PRN (Reason: Anxiety) hydroxyzine HCl 50 mg Tablet 50 mg PO TID PRN (Reason: Anxiety) methadone [Methadose] 10 mg/mL concentrate 90 mg PO DAILY Rx Instructions: Partial Fill upon patient request. magnesium oxide 400 mg magnesium tablet 400 mg PO BID Qty: 60 0RF cephalexin 500 mg capsule 500 mg PO QID Qty: 28 0RF tramadol 50 mg tablet 50 mg PO Q6H PRN (Reason: severe pain (scale score 7-10)) Qty: 12 0RF doxycycline hyclate 100 mg capsule 100 mg PO BID 7 Days Qty: 14 0RF albuterol sulfate 90 mcg/actuation HFA aerosol inhaler 2 puff inhalation Q6H PRN (Reason: Respiratory Distress) gabapentin 100 mg capsule 100 mg PO TID Interventions: ED Discharge Assessment Last Done: 08/07/24 20:07 Discharge Date/Time: 08/07/24 20:15 Print Language: Bots[place]an
[2024-08-07 20:07] VITALS: BP 131/71; PULSE 101; RESP 17; TEMP 36.8; O2SAT 98
--- NOTE | 2024-08-07 20:14 | PC.NURSE ---
Pt disruptive during discharge, security at bedside. No new wounds present. Closed-healing wounds with no active bleeding wrapped with non-stick gauze and gauze wrap per pt request. Pt argumentative through discharge stating no staff is wrapping his leg correctly. Mother at bedside also argumentative with staff and escorted off unit by security. When asked how he would like leg wrapped he had no response other than calling staff idiots and dumb . pt encouraged to follow up with pcp/ vascular.
== END 2024-08-07 20:15 | disposition home or self-care (01) ==
PROVIDERS: Emergency Provider Emergency Medicine
DX: I83.93 Asymptomatic varicose veins of bilateral lower extremities (principal); Z79.899 Other long term (current) drug therapy; F17.210 Nicotine dependence, cigarettes, uncomplicated
CPT/HCPCS: 99283; 99284

== ENCOUNTER 2024-08-11 10:33 | Outpatient (AMB) | payer MEDICAID, SELFPAY ==
--- NOTE | 2024-08-11 10:35 | MHC.OFFVIS ---
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 Pt states that he has had numerous hospital ED trips for rupturing VV. Currently has sutures and dressings from ED trip as recent as 1 week ago. Left LE is very red and swollen. Pt is having a lot of difficulty ambulating due to swelling and redness causing pain. 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 Complaints include pain over varicosities, swelling of lower extremities, and recurrent nonhealing ulcer. It has been affecting there daily activities including walking and moving. It is noted more so in left leg. Of note the patient has a prior history of IV drug abuse and has been on Xarelto after tricuspid valve replacement. He had a recent visit to the emergency room for this bleeding ulcer on 04/20/2024. Patient denies any previous venous surgery or injections. Patient denies any history of DVT/ PE. Patient denies any history of phlebitis. Trial of compression includes - Derrick wrap and compressive wrap around the wound They now present for vascular evaluation regarding their varicose veins. [facility] Medical History Opioid use disorder, severe, dependence Substance abuse MSSA bacteremia Bacteremia Bacteremia Right heart failure Steatosis, liver Tricuspid valve stenosis Anasarca HCV (hepatitis C virus) Endocarditis Pulmonary embolism Surgical History History of tricuspid valve replacement with bioprosthetic valve Social History (Updated 08/11/24 @ 10:45 by SHANNA Olivares) Household Members: None Household Members Other:: none. homeless Housing: Homeless Do you presently have visiting nurse or other home services: No Unable to assess alcohol history related to: Unknown Alcohol intake: never Patient Tobacco Use Status: Tobacco use Unknown Tobacco use type: Cigarette Cigarette Packs Per Day: 1 Cigarettes Per Day: 5 Years Smoked: 10 Second Hand Smoke Exposure: No Substance Use Type: Heroin Advance Directives Date on File: 06/29/21 service: No Current occupational status: unemployed Review of Systems Const Reports as per HPI ENT Reports no additional complaints Card Denies chest pain, Denies chest pain at rest and Denies chest pain with activity Resp Denies chest congestion and Denies cough GI Reports no additional complaints Musc Details: pain over varicosities, aching of lower extremities, swelling, cramping, heaviness and tiredness, itching Denies abnormal gait Skin/Breast Reports pruritus and Denies wounds Neuro Reports no additional complaints and Denies abnormal gait Psych Denies no additional complaints Physical Exam Const General: cooperative, healthy appearing and comfortable Orientation/consciousness: oriented to person, oriented to place and oriented to time Neck Carotids: no bruits Chest Chest palpation & inspection: normal inspection of the chest and normal palpation of entire chest wall Resp Effort & Inspection: normal respiratory effort and able to speak in complete sentences Cardio Rate: regular rate Heart sounds: S1 normal heart sound present and S2 normal heart sound present Peripheral pulses: Peripheral pulses 2+ throughout GI Inspection: Yes normal to inspection Skin Other: +2 edema, left calf ulcer with bleeding eschar measuring 3 x 2 x 0.2 cm CEAP Classification C6 - active ulcer Ep - Etiology Primary As - superficial veins P - reflux General skin exam: dry skin Neuro General: oriented to person, oriented to place and oriented to time Extrem Right lower extremity: full ROM, normal capillary refill and edema Left lower extremity: full ROM, normal capillary refill and edema Psych Mental Status: mental status grossly normal Assessment & Plan Assessment & Plan (1) Varicose veins of left lower extremity with inflammation: Code(s): I83.12 - Varicose veins of left lower extremity with inflammation Category: Medical Plan: In short patient has nonhealing bleeding ulcer of the left lower extremity. I do believe he may have an element of venous disease. I have taken the liberty of ordering venous insufficiency testing to rule that out. Patient will follow up with us after testing. Thank you for allowing us to assist in this patient's care. If there are any questions or concerns please do not hesitate to contact us Orders: Orders US venous duplex LE BI 1 Week I83.12 - Varicose veins of left lower extremity with inflammation Coding Level of Care Code New Pt Level 4 (85568) Diagnoses Varicose veins of left lower extremity with inflammation I83.12
== END 2024-08-11 11:11 | disposition home or self-care (01) ==
PROVIDERS: Visit Provider Surgery Vascular Surgery
DX: I83.12 Varicose veins of left lower extremity with inflammation (principal)
CPT/HCPCS: 99204

== ENCOUNTER → 2024-08-11 10:33 | Outpatient (BNVA) | payer MEDICAID, SELFPAY | PROVIDERS: Visit Provider Surgery Vascular Surgery | DX: I83.228 Varicose veins of left lower extremity with both ulcer of other part of lower extremity and inflammation (principal); L97.229 Non-pressure chronic ulcer of left calf with unspecified severity | CPT/HCPCS: 99202 ==

== ENCOUNTER 2024-08-22 12:42 | Outpatient (REF) | payer MEDICAID, SELFPAY ==
--- NOTE | ~2024-08-22 | US_ITS ---
EXAMINATION: US LOWER EXTREMITY VENOUS (REFLUX EXAM), BILATERAL CLINICAL INDICATION: Chronic venous insufficiency with lower extremity varicose veins with inflammation COMPARISON: None. TECHNIQUE: Color flow triplex imaging and compression Doppler was performed to evaluate both the deep and the superficial systems bilaterally. To evaluate the superficial system, the examination was performed in the upright position. Color-flow Doppler ultrasound and compression ultrasound were utilized. In addition, maneuvers were utilized to demonstrate reflux. FINDINGS: 1. DEEP VENOUS ULTRASOUND OF THE RIGHT LOWER EXTREMITY: Common Femoral Vein: Compressible, normal respiratory variation and augmented flow. Femoral Vein: Compressible, normal color flow and augmentation. Popliteal Vein: Compressible, normal augmentation. Deep Reflux: There is no evidence of reflux in the deep system in either the common femoral vein, superficial femoral or the popliteal vein. There is no evidence of a Mauricio's cyst. 2. SUPERFICIAL ULTRASOUND WITH DOPPLER OF RIGHT LOWER EXTREMITY: GREAT SAPHENOUS VEIN: Saphenofemoral Junction: 0.6 cm; Reflux: 0 ms Proximal Thigh: 0.3 cm; Reflux: 0 ms Mid Thigh: 0.4 cm; Reflux: 0 ms Above Knee: 0.4 cm; Reflux: 0 ms At Knee: 0.4 cm; Reflux: 0 ms Below Knee: 0.4 cm; Reflux: 0 ms Mid Calf: 0.2 cm; Reflux: 0 ms Ankle: 0.3 cm; Reflux: 0 ms DUPLICATED MEDIAL GREAT SAPHENOUS VEIN: Diameter: None imaged Reflux: NA DUPLICATED LATERAL GREAT SAPHENOUS VEIN: Diameter: None imaged Reflux: NA SMALL SAPHENOUS VEIN: Saphenopopliteal Junction: 0.2 cm; Reflux: 0 ms Mid: 0.3 cm; Reflux: 0 ms Distal: 0.3 cm; Reflux: 0 ms VEIN OF GIACOMINI: Size: NA Reflux: NA PERFORATORS: Location: None significant Size: NA Reflux: NA VARICOSITIES: Location: Posterior mid calf off the small saphenous vein, proximal, distal thigh off the great saphenous vein, knee off the great saphenous vein, proximal and distal calf off the great saphenous vein Size: 0.3 to 0.5 cm Reflux: Ranging from 812 ms to 2152 ms 3. DEEP VENOUS ULTRASOUND OF THE LEFT LOWER EXTREMITY: Common Femoral Vein: Compressible, normal respiratory variation and augmented flow. Femoral Vein: Compressible, normal color flow and augmentation. Popliteal Vein: Compressible, normal augmentation. Deep Reflux: There is no evidence of reflux in the deep system in either the common femoral vein, superficial femoral or the popliteal vein. There is no evidence of a Mauricio's cyst. 4. SUPERFICIAL ULTRASOUND WITH DOPPLER OF LEFT LOWER EXTREMITY: GREAT SAPHENOUS VEIN: Saphenofemoral Junction: 0.8 cm; Reflux: 0 ms Proximal Thigh: 0.4 cm; Reflux: 0 ms Mid Thigh: 0.4 cm; Reflux: 0 ms Above Knee: 0.6 cm; Reflux: 2176 ms At Knee: 0.4 cm; Reflux: 2020 ms Below Knee: 0.3 cm; Reflux: 536 ms Mid Calf: 0.3 cm; Reflux: 2084 ms Ankle: 0.5 cm; Reflux: 0 ms DUPLICATED MEDIAL GREAT SAPHENOUS VEIN: Diameter: None imaged Reflux: NA DUPLICATED LATERAL GREAT SAPHENOUS VEIN: Diameter: None imaged Reflux: NA SMALL SAPHENOUS VEIN: Saphenopopliteal Junction: 0.4 cm; Reflux: 0 ms Mid: 0.2 cm; Reflux: 0 ms Distal: 0.4 cm; Reflux: 0 ms VEIN OF GIACOMINI: Size: NA Reflux: NA PERFORATORS: Location: None imaged Size: NA Reflux: NA VARICOSITIES: Location: Posterior calf off the small saphenous vein, proximal and mid thigh off of the great saphenous vein and proximal calf off the great saphenous vein Size: 0.3 to 0.4 cm Reflux: No ranging from 1052 ms to 1860 ms US/US venous duplex LE BI IMPRESSION: 1. Right: No significant venous insufficiency or reflux within the great saphenous vein or small saphenous vein. Multiple varicosities as described above. 2. Left: Significant venous insufficiency and reflux within the great saphenous vein as described above. Multiple varicosities as described above. Electronically signed by: Mick Leo MD 09/14/2024 12:28 PM [facility]
== END 2024-08-22 12:43 | disposition home or self-care (01) ==
LOC: HO.US 12:42
PROVIDERS: Visit Provider Surgery Vascular Surgery
DX: I83.12 Varicose veins of left lower extremity with inflammation (principal)
CPT/HCPCS: 93970

== ENCOUNTER 2024-09-13 01:21 | Inpatient (IN) | payer MEDICAID, SELFPAY ==
[2024-09-13] VITALS (9 sets, daily range): BP systolic 84–146; BP diastolic 52–88; PULSE 65–87; RESP 13–20; TEMP 36.4–36.8; O2SAT 90–98; BMI 20.1
--- NOTE | ~2024-09-13 | XR_ITS ---
EXAMINATION: XR CHEST CLINICAL INFORMATION: chest pain COMPARISON: May 19, 2024. TECHNIQUE: Frontal view of the chest was obtained. FINDINGS: The Cardiomediastinal silhouette is within normal limits and stable. There is been a previous median sternotomy. Left-sided pacer leads are again seen in place unchanged in position. There is no focal lung consolidation or evidence for significant pleural effusions. The bony structures and the soft tissues are unremarkable. XR/XR chest 1V IMPRESSION: No acute cardiopulmonary disease. Electronically signed by: Eh Mondragon MD 09/13/2024 02:21 AM [facility]
--- NOTE | ~2024-09-13 | CT_ITS ---
EXAMINATION: CT ABDOMEN AND PELVIS WITHOUT CONTRAST CLINICAL INFORMATION: Severe epigastric pain. COMPARISON: CT scans dating between October 27, 2023 and June 12, 2020. TECHNIQUE: Multidetector volumetric imaging was performed from the superior aspect of the liver through the pubic symphysis. Sagittal and coronal reformatted images were obtained on the technologist's workstation. This CT examination was performed using dose optimization techniques as appropriate, variously including the following: *Automated exposure control *Adjustment of mA and/or kV according to patient size (this includes techniques or standardized protocols for targeted exams where dose is matched to indication/reason for exam; i.e. extremities or head) *Use of iterative reconstruction technique DLP: 386 mGy-cm FINDINGS: Limited by lack of oral and intravenous contrast, paucity of intra-abdominal fat, motion, and anasarca. LUNG BASES: The lung bases appear clear, with no evidence of inflammation or nodules. Heart normal in size. Suspect coronary arterial calcification, partially imaged. LIVER, GALLBLADDER, AND BILIARY TREE: The liver appears unremarkable in size, shape, and attenuation. No focal hepatic lesion or biliary ductal dilatation is appreciated. Collapsed gallbladder. Suspect mild diffuse gallbladder wall thickening, nonspecific. PANCREAS: Unremarkable SPLEEN: Unremarkable ADRENAL GLANDS: Unremarkable KIDNEYS AND URETERS: The kidneys appear unremarkable in size, shape, and attenuation. No hydronephrosis, hydroureter, or calculi seen. BLADDER: Poorly distended, therefore suboptimally evaluated. Grossly unremarkable. GASTROINTESTINAL TRACT: The small and large bowel appear unremarkable. No gross diverticulosis. Normal-appearing distal ileum. Suspect appendectomy. PERITONEAL CAVITY: Small amount of ascites. No free intraperitoneal air. ABDOMINAL WALL: Mild anasarca. No significant hernia is appreciated. LYMPH NODES: No evidence of adenopathy by size criteria. VASCULAR: Unremarkable PELVIC VISCERA: Unremarkable OSSEOUS STRUCTURES: Unremarkable CT/CT abdomen pelvis wo IV con IMPRESSION: Limited study. Small amount of ascites. Mild anasarca. Suspect mild diffuse gallbladder wall thickening, nonspecific. Suspect coronary arterial calcification, partially imaged. Electronically signed by: Dave Lazaro MD 09/13/2024 02:32 PM [facility]
--- NOTE | 2024-09-13 01:48 | ECG_ITS ---
Test Reason : DYSPENA Blood Pressure : / mmHG Vent. Rate : 081 BPM Atrial Rate : 081 BPM P-R Int : 136 ms QRS Dur : 100 ms QT Int : 450 ms P-R-T Axes : 068 071 067 degrees QTc Int : 522 ms Normal sinus rhythm Incomplete right bundle branch block T wave abnormality, consider anterior ischemia Abnormal ECG When compared with ECG of 19-MAY-2024 23:09, Vent. rate has decreased BY 40 BPM Referred By: Ofelia Najera Electronically Signed By:VIOLET SULLIVAN
--- NOTE | 2024-09-13 01:56 | ED_ITS ---
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 He then falls asleep. 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 He denies fevers, states maybe chills. He notes this pain is on and off for a long time. He also notes he does not have his inhalers right now MD elicited complaint: pain with inspiration and chest pain Pertinent past history: congestive heart failure, pneumonia and PE Onset (ago): year(s) Context: smoke/fume exposure Timing: intermittent Severity: moderate Exacerbating factors: coughing and inspiration Relieving factors: rest Known history of: congestive heart failure Associated symptoms: cough and wheezing Related Data Home Medications ?Medication ?Instructions ?Recorded ?Confirmed albuterol sulfate 90 mcg/actuation 2 puff inhalation Q6H PRN 04/13/23 04/28/24 aerosol inhaler Respiratory Distress gabapentin 100 mg capsule 100 mg PO TID 04/13/23 04/28/24 clonidine HCl 0.1 mg tablet 0.1 mg PO TID PRN Anxiety 03/30/24 03/30/24 hydroxyzine HCl 50 mg tablet 50 mg PO TID PRN Anxiety 03/30/24 03/30/24 methadone 10 mg/mL oral 90 mg PO DAILY 03/31/24 04/28/24 concentrate (Methadose) Previous Rx's ?Medication ?Instructions ?Recorded rivaroxaban 20 mg tablet (Xarelto) 20 mg PO DAILY #30 tabs 08/02/22 nicotine 21 mg/24 hr daily 21 mg transdermal DAILY #30 ea 03/20/23 transdermal patch spironolactone 25 mg tablet 25 mg PO DAILY 30 days #30 tabs 03/23/23 magnesium oxide 400 mg PO BID #60 tabs 04/01/24 cephalexin 500 mg capsule 500 mg PO QID #28 caps 08/07/24 doxycycline hyclate 100 mg capsule 100 mg PO BID 7 days #14 caps 08/07/24 tramadol 50 mg tablet 50 mg PO Q6H PRN severe pain 08/07/24 (scale score 7-10) #12 tabs Allergies Allergy/AdvReac Type Severity Reaction Status Date / Time No Known Allergies Allergy Verified 09/13/24 01:41 [No Known Allergies*] Review of Systems 2 Review of Systems: Constitutional : No Weight loss, No Fever, No Chills ENT/Mouth : No sore throat, No Rhinorrhea Eyes: No Eye Pain, No Swelling Cardiovascular : pos Chest Pain, pos SOB, no Dyspnea on Exertion, No Orthopnea, No Edema, No Palpitations Respiratory : pos Cough, No Sputum Gastrointestinal : no Nausea, No Vomiting, No Diarrhea, No abdominal Pain, No Hematochezia, No Melena Genitourinary : No Dysuria, No Urinary Frequency Musculoskeletal : No joint pain, No Myalgias, No Joint Swelling Skin : No Skin Lesions, No rash Neuro : No Weakness, No Numbness, No Dizziness, No Headache Psych : No Anxiety/Panic, No Depression Heme/Lymph: No Bruising, No Lymphadenopathy Endocrine : No Polyuria, No Polydipsia All other systems reviewed and are negative PMFSH Past Medical History Attestation statement: The following information was validated with the patient. Source: old records reviewed Medical History Opioid use disorder, severe, dependence Substance abuse MSSA bacteremia Bacteremia Bacteremia Right heart failure Steatosis, liver Tricuspid valve stenosis Anasarca HCV (hepatitis C virus) Endocarditis Pulmonary embolism Surgical History History of tricuspid valve replacement with bioprosthetic valve Social History Social History Household Members: None Household Members Other:: none. homeless Housing: Homeless Do you presently have visiting nurse or other home services: No Unable to assess alcohol history related to: Unknown Alcohol intake: never Patient Tobacco Use Status: Tobacco use Unknown Tobacco use type: Cigarette Cigarette Packs Per Day: 1 Cigarettes Per Day: 5 Years Smoked: 10 Smoked in Last 30 Days: Yes Second Hand Smoke Exposure: No Use of substances other than those prescribed or required for medical reasons: Yes Substance Use Type: Crack/Cocaine and Heroin Substance Use Frequency: Chronic Longstanding Last Used Substance: Just Prior to Admission Any prior treatment program specific to substance use: No Advance Directives: Yes Advance Directives on File: Yes Advance Directives Date on File: 04/16/21 Do you have a plan to hurt others: No Plan service: No Current occupational status: unemployed Physical Exam 2 Vital Signs: Vital Signs: Last Vital Signs Temp 98.3 F 09/13/24 06:31 Pulse 79 09/13/24 06:31 Resp 16 09/13/24 06:31 BP 97/59 L 09/13/24 06:31 Pulse Ox 98 09/13/24 06:31 O2 Del Method Room Air 09/13/24 06:31 BMI result Body Mass Index 20.1 Appearance: Somnolent Oriented X3. No acute distress. sedated but easily woken and able to have a conversation Eyes: Pupils pinpoint ENT: Pharynx normal. Neck: Normal inspection. Neck supple. CVS: Normal heart rate and rhythm. Pulses normal. Respiratory: No respiratory distress. Breath sounds normal. Abdomen: Soft and nontender. Skin: Skin warm and dry. Normal skin color. Normal skin turgor. Extremities: trace pitting edema both legs Neuro: Oriented X 3. No motor deficit. No sensory deficit. Course Course Course Narrative: mild LUCERO gentle fluids aware EF 45% on last ECHO 500cc bolus ordered no signs of sig volume overload and no pulm edema - will monitor he frequently leaves AMA he is sleeping now and under the influence will reassess. Reevaluation(s) Reevaluation #1: refuses rectal exam Reevaluation #2: hospitalist to consult GI, admit and place CT scan pending admit post CT scan will sign out to Dr. 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 He was given duoneb with EMS at this time basic labs, EKG, troponin and CXR. Differential Diagnosis Differential Diagnoses: The differential diagnosis associated with the presentation includes drug use, URI, lung pathology, pericarditis/myocarditis, atypical chest pain Admission/Observation Consideration of admission/observation: Escalation of care including admission/observation considered admit given lab derangements Consult Healthcare Provider Management of the patient was discussed with: Hospitalist (will admit) Lab Data MDM Lab Attestation statement: I reviewed the patient's lab results. 09/13/24 02:05 09/13/24 05:03 Labs: Lab Results 09/13/24 09/13/24 Range/Units 02:05 05:03 WBC 10.1 (4.8-10.8) X10*3/uL RBC 3.37 L D (4.60-5.80) X10*6/uL Hgb 8.2 L D (14.0-18.0) g/dl Hct 26.5 L D (42.0-52.0) % MCV 78.6 L (80.0-98.0) fL MCH 24.3 L (27.0-33.0) pg MCHC 30.9 L (31.0-36.0) g/dl RDW 16.7 H (11.0-16.0) % Plt Count 321 D (160-400) X10*3/uL MPV 9.1 L (9.4-12.4) fL Immature Gran % (Auto) 1.3 H (0.0-0.4) % Neut % (Auto) 65.5 (45-73) % Lymph % (Auto) 22.9 (20-40) % [place] % (Auto) 9.6 (2-11) % Eos % (Auto) 0.3 (0-4) % Baso % (Auto) 0.4 (0-2) % Lymph # (Auto) 2.3 (1.2-4.9) X10*3/uL [place] # (Auto) 1.0 (0.1-1.2) X10*3/uL Eos # (Auto) 0.0 (0.0-0.4) X10*3/uL Baso # (Auto) 0.0 (0.0-0.2) X10*3/uL Abs Immat Gran (auto) 0.13 H (0.00-0.03) X10*3/uL Absolute Neuts (auto) 6.6 (2.0-8.3) x10*3/uL Absolute Nucleated RBC 0.020 H (0.0-0.012) X10*3/uL Nucleated RBC % (auto) 0.2 (0.0-0.2) /100WBC Sodium 134 L 134 L (135-145) mmol/L Potassium 4.2 3.9 (3.3-5.1) mmol/L Chloride 99 101 (96-108) mmol/L Carbon Dioxide 21 L 23 (22-29) mmol/L Anion Gap 18 14 (12-20) BUN 41 H 37 H (9-16) mg/dL Creatinine 1.78 H 1.53 H (0.5-1.4) mg/dL Estim Creat Clear Calc 52.0 60.5 Estimated GFR 44 52 Random Glucose 67 73 (60-115) mg/dL Calcium 9.5 9.1 (8.4-10.2) mg/dL Magnesium 2.4 (1.6-2.6) mg/dL Total Bilirubin 1.4 H (0.0-1.0) mg/dL Direct Bilirubin 0.9 H (0.0-0.5) mg/dL AST 241 H (5-37) U/L ALT 133 H (0-40) U/L Alkaline Phosphatase 288 H (39-117) U/L Total Creatine Kinase 1000 H 954 H (38-174) U/L Troponin I High Sens 8.3 7.5 (<3.5-35.0) ng/L B-Natriuretic Peptide 370 H (<100) pg/mL Total Protein 7.3 (6.5-8.0) g/dL Albumin 3.6 (3.5-5.0) g/dL Urine Opiates Screen POSITIVE H (Not Detect) Ur Buprenorphine Scrn Not Detected (Not Detect) ng/mL Ur Oxycodone Screen Not Detected (Not Detect) ng/mL Urine Methadone Screen Positive H (Not Detect) ng/mL Urine Fentanyl Screen POSITIVE H (Not Detect) Ur Barbiturates Screen Not Detected (Not Detect) Ur Phencyclidine Scrn Not Detected (Not Detect) Ur Amphetamines Screen Not Detected (Not Detect) U Benzodiazepines Scrn Not Detected (Not Detect) Urine Cocaine Screen POSITIVE H (Not Detect) U Marijuana (THC) Screen POSITIVE H (Not Detect) Influenza Type A (PCR) NEGATIVE (Negative) Influenza Type B (PCR) NEGATIVE (Negative) RSV RNA Qual (PCR) NEGATIVE (Negative) SARS-CoV-2 RNA (RT-PCR) NEGATIVE (Negative) Independent Interpretation I performed an independent interpretation of an: EKG and Plain X-Ray (normal) Interpretation: Rate: 81 Rhythm: NSR [place]: normal Normal P waves. Normal TYREL. incomplete RBBB ST T wave : no SCOTT, inverted t waves V1-V3 qTC: 522 prior studies: no change from prior The study has been interpreted contemporaneously by me. . Radiology Impression Discussion of test interpretation with radiology: I have reviewed the radiologist's reading. Independent Historian Clinical information obtained from an independent historian. History obtained from or confirmed by: EMS External Record Review External record reviewed: Inpatient record Discharge Plan Discharge Clinical Impression: Polysubstance abuse, LUCERO (acute kidney injury), Rhabdomyolysis, Anemia Patient Disposition: Admitted As Inpatient Prescriptions: No Action Xarelto 20 mg Tablet 20 mg PO DAILY Qty: 30 0RF Rx Instructions: must administer with evening meal nicotine 21 mg/24 hr Patch 24 Hour 21 mg transdermal DAILY Qty: 30 0RF spironolactone 25 mg Tablet 25 mg PO DAILY 30 Days Qty: 30 0RF Protocol: Hold for SBP< HOLD for SBP < : 90 clonidine HCl 0.1 mg Tablet 0.1 mg PO TID PRN (Reason: Anxiety) hydroxyzine HCl 50 mg Tablet 50 mg PO TID PRN (Reason: Anxiety) methadone [Methadose] 10 mg/mL concentrate 90 mg PO DAILY Rx Instructions: Partial Fill upon patient request. magnesium oxide 400 mg magnesium tablet 400 mg PO BID Qty: 60 0RF cephalexin 500 mg capsule 500 mg PO QID Qty: 28 0RF tramadol 50 mg tablet 50 mg PO Q6H PRN (Reason: severe pain (scale score 7-10)) Qty: 12 0RF doxycycline hyclate 100 mg capsule 100 mg PO BID 7 Days Qty: 14 0RF albuterol sulfate 90 mcg/actuation HFA aerosol inhaler 2 puff inhalation Q6H PRN (Reason: Respiratory Distress) gabapentin 100 mg capsule 100 mg PO TID Print Language: Romanian
[2024-09-13 02:11] LABS: MANUAL DIFF FLAG NO
[2024-09-13 02:12] LABS: Basophils Percent Auto 0.4 % (0-2); Eosinophils Percent Auto 0.3 % (0-4); Hematocrit 26.5 % (42.0-52.0); Hemoglobin 8.2 g/dl (14.0-18.0); Imm Gran Abs Auto 0.13 X10*3/uL (0.00-0.03); Imm Gran Pct Auto 1.3 % (0.0-0.4); Lymphocytes Absolute Auto 2.3 X10*3/uL (1.2-4.9); Lymphocytes Percent Auto 22.9 % (20-40); Mean Corpuscular HGB Conc 30.9 g/dl (31.0-36.0); Mean Corpuscular Hemoglobin 24.3 pg (27.0-33.0); Mean Corpuscular Volume 78.6 fL (80.0-98.0); Mean Platelet Volume 9.1 fL (9.4-12.4); Monocytes Percent Auto 9.6 % (2-11); NRBC Pct Auto 0.2 /100WBC (0.0-0.2); Neutrophils Absolute Auto 6.6 x10*3/uL (2.0-8.3); Neutrophils Percent Auto 65.5 % (45-73); Platelet Count 321 X10*3/uL (160-400); Red Blood Count 3.37 X10*6/uL (4.60-5.80); Red Cell Distribution Width 16.7 % (11.0-16.0); White Blood Count 10.1 X10*3/uL (4.8-10.8)
[2024-09-13 02:33] LABS: Alanine Aminotransferase 133 U/L (0-40); Albumin Level 3.6 g/dL (3.5-5.0); Alkaline Phosphatase 288 U/L (39-117); Anion Gap 18 (12-20); Aspartate Amino Transferase 241 U/L (5-37); Bilirubin Direct 0.9 mg/dL (0.0-0.5); Bilirubin Total 1.4 mg/dL (0.0-1.0); Blood Urea Nitrogen 41 mg/dL (9-16); Calcium 9.5 mg/dL (8.4-10.2); Carbon Dioxide 21 mmol/L (22-29); Chloride 99 mmol/L (96-108); Estimated Glomerular Filt Rate 44; Glucose Random 67 mg/dL (60-115); Magnesium 2.4 mg/dL (1.6-2.6); Potassium 4.2 mmol/L (3.3-5.1); Sodium 134 mmol/L (135-145); Total Protein 7.3 g/dL (6.5-8.0)
[2024-09-13 02:37] LABS: B Type Natriuretic Peptide 370 pg/mL (<100)
[2024-09-13 02:40] LABS: Troponin-I High Sensitivity 8.3 ng/L (<3.5-35.0)
[2024-09-13 02:48] LABS: Influenza A PCR NEGATIVE (Negative); Influenza B PCR NEGATIVE (Negative); Resp Syncy Virus RNA Qual PCR NEGATIVE (Negative); SARS COV2 PCR INHOUSE NEGATIVE (Negative)
[2024-09-13] MEDS: 0.9 % Sodium Chloride 500 ML IV ×2 (03:18→19:52)
--- NOTE | 2024-09-13 05:05 | MHC.EDTECH ---
Patient repeated blood drawn ,urine sample collected all sent to lab ,Patient having a sandwich and kaitlin nancy for snack .
[2024-09-13 05:19] LABS: Amphetamine Screen Urine Not Detected (Not Detect); Barbiturates, Urine Not Detected (Not Detect); Benzodiazepines Screen Urine Not Detected (Not Detect); Buprenorphine Scr Not Detected (Not Detect); Cannabinoid Screen Urine POSITIVE (Not Detect); Cocaine Screen Urine POSITIVE (Not Detect); Fentanyl, urine POSITIVE (Not Detect); Methadone Screen, Urine Positive (Not Detect); Opiate Screen Urine POSITIVE (Not Detect); Oxycodone Screen Urine Not Detected (Not Detect); Phencyclidine Screen Urine Not Detected (Not Detect)
[2024-09-13 05:22] LABS: Anion Gap 14 (12-20); Blood Urea Nitrogen 37 mg/dL (9-16); Calcium 9.1 mg/dL (8.4-10.2); Carbon Dioxide 23 mmol/L (22-29); Chloride 101 mmol/L (96-108); Creatinine Clr Calc Pharmacy 60.5; Estimated Glomerular Filt Rate 52; Glucose Random 73 mg/dL (60-115); Potassium 3.9 mmol/L (3.3-5.1); Sodium 134 mmol/L (135-145)
[2024-09-13 05:29] LABS: Troponin-I High Sensitivity 7.5 ng/L (<3.5-35.0)
[2024-09-13] MEDS: fentaNYL citrate/PF 100 MCG/2 ML VIAL 25 MCG IVPUSH (06:41)
[2024-09-13] MEDS: Pantoprazole Sodium 40 MG/10 ML VIAL 80 MG IVPUSH (06:41)
[2024-09-13] MEDS: Lactated Ringers 1,000 ML 80 ML IVCONT ×2 (06:43→18:52)
[2024-09-13 06:47] LABS: Hematocrit 23.7 % (42.0-52.0); Hemoglobin 7.6 g/dl (14.0-18.0)
--- NOTE | 2024-09-13 07:43 | PC.NURSE ---
this nurse took over report at 7am, pt sleeping, wakes to verbal stimulus, lungs clear/diminished throughout rr equal/non labored, pts bp soft- per report providers were aware, rn cardiac cath nsr, denying pain at this time, call pierce within reach, will continue to monitor
--- NOTE | 2024-09-13 07:54 | PM.IMHP ---
History of Present Illness Date of Service: 09/13/24 Chief Complaint: feeling unwell, chest pain 33M PMH hepatitis-C with steatohepatitis, polysubstance dependence, history of endocarditis with tricuspid valve replacement, heart failure with reduced ejection fraction, pulmonary embolism, presented feeling unwell. Patient is a vague historian but reports about 1 week of increased fatigue, midsternal chest pain which is constant, no aggravating or relieving factors. Some dyspnea. Reports subjective fevers. In ED lab significant for mild elevation in creatinine, significant drop in hemoglobin, 12.4 in May 2024, now 8.2. Patient denies any signs of bleeding. He does take Xarelto for history of pulmonary embolism though reports noncompliance over the last week. EKG unremarkable, troponin negative. Review of Systems Review of Systems: Yes all other systems are reviewed and are negative [facility] Medical History Opioid use disorder, severe, dependence Substance abuse MSSA bacteremia Bacteremia Bacteremia Right heart failure Steatosis, liver Tricuspid valve stenosis Anasarca HCV (hepatitis C virus) Endocarditis Pulmonary embolism Surgical History History of tricuspid valve replacement with bioprosthetic valve Social History Household Members: None Household Members Other:: none. homeless Housing: Homeless Do you presently have visiting nurse or other home services: No Unable to assess alcohol history related to: Unknown Alcohol intake: never Patient Tobacco Use Status: Tobacco use Unknown Tobacco use type: Cigarette Cigarette Packs Per Day: 1 Cigarettes Per Day: 5 Years Smoked: 10 Smoked in Last 30 Days: Yes Second Hand Smoke Exposure: No Use of substances other than those prescribed or required for medical reasons: Yes Substance Use Type: Crack/Cocaine and Heroin Substance Use Frequency: Chronic Longstanding Last Used Substance: Just Prior to Admission Any prior treatment program specific to substance use: No Advance Directives: Yes Advance Directives on File: Yes Advance Directives Date on File: 04/16/21 Do you have a plan to hurt others: No Plan service: No Current occupational status: unemployed Meds Allergies Allergy/AdvReac Type Severity Reaction Status Date / Time No Known Allergies Allergy Verified 09/13/24 01:41 [No Known Allergies*] Active Medications: Current Medications Acetaminophen (Acetaminophen 325 Mg Tablet) 650 mg PO Q6H PRN PRN Reason: Pain, Mild (Pain Scale 1-3), fever or headache Calcium Carbonate (Calcium Carbonate 750 Mg Tab.Chew) 750 mg PO Q4H PRN PRN Reason: Heartburn Lactated Ringer's (Lr) 1,000 mls @ 80 mls/hr IVCONT .[id number] [facility] Last Admin: 09/13/24 06:43 Dose: 80 mls/hr Magnesium Hydroxide (Milk Of Magnesia 30 Ml Oral.Susp) 30 ml PO DAILY PRN PRN Reason: Constipation Melatonin (Melatonin 3 Mg Tablet) 6 mg PO BEDTIME PRN PRN Reason: Insomnia Pantoprazole Sodium (Pantoprazole Sodium 40 Mg/10 Ml Vial) 40 mg IVPUSH BID@0630,1630 [facility] Sodium Chloride (0.9 % Sodium Chloride Flush 3 Ml Syringe) 3 ml IVFLUSH QSHIFT [facility] Home Medications ?Medication ?Instructions ?Recorded ?Confirmed ?Last Taken ?Type albuterol sulfate 90 mcg/actuation 2 puff inhalation Q6H PRN 04/13/23 04/28/24 Unknown History aerosol inhaler Respiratory Distress gabapentin 100 mg capsule 100 mg PO TID 04/13/23 04/28/24 Unknown History clonidine HCl 0.1 mg tablet 0.1 mg PO TID PRN Anxiety 03/30/24 03/30/24 Unknown History hydroxyzine HCl 50 mg tablet 50 mg PO TID PRN Anxiety 03/30/24 03/30/24 Unknown History methadone 10 mg/mL oral 90 mg PO DAILY 03/31/24 04/28/24 03/30/24 11:34 History concentrate (Methadose) Physical Exam Vital Signs and Narrative: Vital Signs: Last Vital Signs Temp 98.3 F 09/13/24 06:31 Pulse 79 09/13/24 06:31 Resp 16 09/13/24 06:31 BP 97/59 L 09/13/24 06:31 Pulse Ox 98 09/13/24 06:31 O2 Del Method Room Air 09/13/24 06:31 BMI result Body Mass Index 20.1 General: AO X 3, in discomfort, ill appearing Resp: CTA bilateral, no accessory muscles used CVS: S1,S2,RRR GI: soft, non tender, non distended Neuro: motor grossly intact, alert Psych: appropriate affect, appropriate insight Results Labs 09/13/24 06:40 09/13/24 05:03 Labs: Laboratory Results - last 24 hr 09/13/24 09/13/24 09/13/24 02:05 05:03 06:40 MCV 78.6 L MCH 24.3 L MCHC 30.9 L RDW 16.7 H Plt Count 321 D MPV 9.1 L Immature Gran % (Auto) 1.3 H Neut % (Auto) 65.5 Lymph % (Auto) 22.9 [place] % (Auto) 9.6 Eos % (Auto) 0.3 Baso % (Auto) 0.4 Lymph # (Auto) 2.3 [place] # (Auto) 1.0 Eos # (Auto) 0.0 Baso # (Auto) 0.0 Abs Immat Gran (auto) 0.13 H Absolute Neuts (auto) 6.6 Absolute Nucleated RBC 0.020 H Nucleated RBC % (auto) 0.2 Anion Gap 18 14 Estim Creat Clear Calc 52.0 60.5 Estimated GFR 44 52 Random Glucose 67 73 Calcium 9.5 9.1 Magnesium 2.4 Total Bilirubin 1.4 H Direct Bilirubin 0.9 H AST 241 H ALT 133 H Alkaline Phosphatase 288 H Total Creatine Kinase 1000 H 954 H Troponin I High Sens 8.3 7.5 B-Natriuretic Peptide 370 H Total Protein 7.3 Albumin 3.6 Urine Opiates Screen POSITIVE H Ur Buprenorphine Scrn Not Detected Ur Oxycodone Screen Not Detected Urine Methadone Screen Positive H Urine Fentanyl Screen POSITIVE H Ur Barbiturates Screen Not Detected Ur Phencyclidine Scrn Not Detected Ur Amphetamines Screen Not Detected U Benzodiazepines Scrn Not Detected Urine Cocaine Screen POSITIVE H U Marijuana (THC) Screen POSITIVE H Influenza Type A (PCR) NEGATIVE Influenza Type B (PCR) NEGATIVE RSV RNA Qual (PCR) NEGATIVE SARS-CoV-2 RNA (RT-PCR) NEGATIVE Blood Type O Positive Antibody Screen NEGATIVE Imaging Radiologist's Impressions: Impressions Chest X-Ray 09/13/24 02:15 IMPRESSION: No acute cardiopulmonary disease. Electronically signed by: Eh Mondragon MD 09/13/2024 02:[address] [facility] Assessment and Plan (1) Opioid use disorder: Status: Acute Plan 33M PMH hepatitis-C with steatohepatitis, polysubstance dependence, history of endocarditis with tricuspid valve replacement, heart failure with reduced ejection fraction, pulmonary embolism, presented feeling unwell,found to have LUCERO, anemia Acute unspecified anemia Concern for GI bleed, IV ppi, GI eval, monitor, hold Xarelto Check iron studies, CT abdomen Acute kidney injury Likely poor intake and relative hypotension due to above, cautious IV fluids due to CHF, monitor Chest pain No evidence of ACS, troponin negative, EKG negative, chest x-ray unremarkable Polysubstance dependence Follow up blood cultures At high-risk for withdrawal Addiction team eval Hepatitis-C with steatohepatitis Outpatient follow up History of pulmonary embolism Hold Xarelto for suspected GI bleed Heart failure with reduced ejection fraction Currently appears hypovolemic, getting gentle IV fluids, monitor closely DVT prophylaxis-mechanical due to suspected GI bleed Full code Patient with significant drop in hemoglobin and acute kidney injury, ill-appearing, therefore expected require at least 2 midnights inpatient Quality Stroke Does the patient have a stroke diagnosis?: No VTE Prior VTE?: Yes VTE Risk Level:: Medical - moderate - high VTE Device Contraindication: N/A - Device Ordered VTE Drug Contraindication: Treatment Not Tolerated
[2024-09-13 08:11] LABS: Iron 12 mcg/dL (45-160); Percent Iron Saturation 3 % (15-50); Total Iron Binding Capacity 356 mcg/dL (228-428); Unsaturated Iron Binding 344 ug/dL
[2024-09-13 08:31] LABS: Ferritin 18 ng/mL (20-250)
--- NOTE | 2024-09-13 09:45 | PHA.MEDREC ---
Addendum entered by Alicia Parrish RPh 09/13/24 10:41: MED REC REVIEWED BY CAROLE Original Note: Pharmacy Consult ? Medication Reconciliation Pharmacy has completed the medication reconciliation. Spoke with patient and he was able to state he Xarelto, Gabapentin, an inhaler as needed and 2 anxiety medications ; he was not able to provide me the names of the Anxiety meds or the inhaler and stated he was filling at [facility] on [address] and to call them, he also states he has not taken any medications in roughly one week. He stated there was no one to be able to call since he is homeless and [facility] is the best [facility]. I called and spoke with the pharmacist and he confirmed he has not filled anything since 04/26 and that was the Gabapentin 100mg tab 1 TID and Xarelto 10mg tabs. They also told me the patient is currently trying to get re-fills for some medications and stated he is trying to get Gabapentin 100mg 2 tabs TID, Hydroxyzine 50mg 1 TID ad needed for anxiety, Sertraline 50mg once daily, Trazodone 50mg once at bedtime as needed and Xarelto 10mg tabs once daily all refilled by his
--- NOTE | 2024-09-13 11:20 | P.CNGI_ITS ---
History of Present Illness Data of Consult Service Date: 09/13/24 Requesting physician: Gaurav Snowden Primary Care Provider: [facility] HPI Reason for consult: anemia 33M PMH hepatitis-C with steatohepatitis, polysubstance dependence, history of endocarditis with tricuspid valve replacement, heart failure with reduced ejection fraction, pulmonary embolism, who I am seeing for assessment for anemia Patient presented with fatigue, with dyspnea, and general malaise for last few days. continues to use cocaine and heroin on most days. He denies melena, rectal bleeding, no nausea, or vomiting. he denies abdominal pain. EKG unremarkable, troponin negative. He is on xarelto but not taking for last week. HGB had been 12.4 in May 2024, now 8.2. Imaging: non contrast CT A/P: small ascites, no acute findings Review of Systems 2 Review of Systems: Constitutional : No Weight loss, No Fever, No Chills ENT/Mouth : No sore throat, No Rhinorrhea Eyes: No Swelling, No Redness Cardiovascular : No Chest Pain, No SOB, No Edema Respiratory : No Cough, No Sputum, No Wheezing Gastrointestinal : see HPI Genitourinary : NO Dysuria, No Urinary Frequency, No Hematuria, No Urgency Musculoskeletal : No joint pain, No Myalgias, No Joint Swelling Skin : No Skin Lesions, No rash Neuro : No Weakness, No Numbness, No Dizziness, No Headache Psych : No Anxiety/Panic, No Depression Heme/Lymph: No Bruising, No Lymphadenopathy Endocrine : No Polyuria, No Polydipsia All other systems reviewed and are negative. [facility] Past Medical History Medical History Opioid use disorder, severe, dependence Substance abuse MSSA bacteremia Bacteremia Bacteremia Right heart failure Steatosis, liver Tricuspid valve stenosis Anasarca HCV (hepatitis C virus) Endocarditis Pulmonary embolism Surgical History Surgical History History of tricuspid valve replacement with bioprosthetic valve Social History Social History Household Members: Unknown / Unable to assess Household Members Other:: none. homeless Housing: Unknown / Unable to assess Do you presently have visiting nurse or other home services: No Unable to assess alcohol history related to: Unknown Alcohol intake: never Patient Tobacco Use Status: Current everyday Tobacco user Tobacco use type: Cigarette Cigarette Packs Per Day: 1 Cigarettes Per Day: 5 Years Smoked: 10 Second Hand Smoke Exposure: No Substance Use Type: Crack/Cocaine and Heroin Advance Directives Date on File: 04/16/21 service: No Current occupational status: unemployed Meds Allergies Allergy/AdvReac Type Severity Reaction Status Date / Time No Known Allergies Allergy Verified 09/13/24 01:41 [No Known Allergies*] Active Medications: Current Medications Acetaminophen (Acetaminophen 325 Mg Tablet) 650 mg PO Q6H PRN PRN Reason: Pain, Mild (Pain Scale 1-3), fever or headache Calcium Carbonate (Calcium Carbonate 750 Mg Tab.Chew) 750 mg PO Q4H PRN PRN Reason: Heartburn Gabapentin (Gabapentin 100 Mg Capsule) 200 mg PO TID [facility] Hydroxyzine HCl (Hydroxyzine Hcl 50 Mg Tablet) 50 mg PO TID PRN PRN Reason: Anxiety Lactated Ringer's (Lr) 1,000 mls @ 80 mls/hr IVCONT .[id number] [facility] Last Admin: 09/13/24 06:43 Dose: 80 mls/hr Magnesium Hydroxide (Milk Of Magnesia 30 Ml Oral.Susp) 30 ml PO DAILY PRN PRN Reason: Constipation Melatonin (Melatonin 3 Mg Tablet) 6 mg PO BEDTIME PRN PRN Reason: Insomnia Pantoprazole Sodium (Pantoprazole Sodium 40 Mg/10 Ml Vial) 40 mg IVPUSH BID@0630,1630 [facility] Sertraline HCl (Sertraline Hcl 50 Mg Tablet) 50 mg PO DAILY [facility] Sodium Chloride (0.9 % Sodium Chloride Flush 3 Ml Syringe) 3 ml IVFLUSH QSHIFT [facility] Last Admin: 09/13/24 08:12 Dose: Not Given Trazodone HCl (Trazodone Hcl 50 Mg Tablet) 50 mg PO BEDTIME PRN PRN Reason: Sleep Home Medications ?Medication ?Instructions ?Recorded ?Confirmed ?Last Taken ?Type gabapentin 100 mg capsule 200 mg PO TID 04/13/23 09/13/24 1 Week Ago History ~09/06/24 hydroxyzine HCl 50 mg tablet 50 mg PO TID PRN Anxiety 03/30/24 09/13/24 1 Week Ago History ~09/06/24 methadone 10 mg/mL oral 115 mg PO DAILY 09/13/24 09/13/24 09/12/24 History concentrate (Methadone Intensol) rivaroxaban 10 mg tablet (Xarelto) 10 mg PO DAILY@1700 09/13/24 09/13/24 Unknown History sertraline 50 mg tablet 50 mg PO DAILY 09/13/24 09/13/24 1 Week Ago History ~09/06/24 trazodone 50 mg tablet 50 mg PO BEDTIME PRN Sleep 09/13/24 09/13/24 1 Week Ago History ~09/06/24 Physical Exam 2 Vital Signs: Vital Signs: Last Vital Signs Temp 98.0 F 09/13/24 10:40 Pulse 70 09/13/24 10:40 Resp 18 09/13/24 10:40 BP 96/59 L 09/13/24 10:40 Pulse Ox 98 09/13/24 10:40 O2 Del Method Room Air 09/13/24 10:40 BMI result Body Mass Index 20.1 EXAM: GENERAL: The patient is thin VITAL SIGNS:see workflow HEENT: Nonicteric sclerae, PERRLA, EOMI. Oropharynx clear. Moist mucous membranes. Conjunctivae appear well perfused. No thyroid mass. CHEST: Chest wall is nontender. HEART: Regular rate and rhythm with PSM at left sternal edge, worse on inspiration LUNGS: Clear to auscultation bilaterally. ABDOMEN: Soft, positive bowel sounds, tender epigastrium, no organomegaly.no flank tenderness SKIN: No rash, no excessive bruising, petechiae, or purpura. NEUROLOGIC: Cranial nerves II-XII intact without motor/sensory deficit. Psych: normal affect Results Labs 09/13/24 19:59 09/13/24 05:03 Labs: Short CBC 09/13/24 09/13/24 Range/Units 02:05 06:40 WBC 10.1 (4.8-10.8) X10*3/uL Hgb 8.2 L D 7.6 L (14.0-18.0) g/dl Hct 26.5 L D 23.7 L (42.0-52.0) % Plt Count 321 D (160-400) X10*3/uL BMP 09/13/24 09/13/24 02:05 05:03 Sodium 134 L 134 L Potassium 4.2 3.9 Chloride 99 101 Carbon Dioxide 21 L 23 BUN 41 H 37 H Creatinine 1.78 H 1.53 H Calcium 9.5 9.1 Cardiac Enzymes 09/13/24 09/13/24 Range/Units 02:05 05:03 Total Creatine Kinase 1000 H 954 H (38-174) U/L Liver Function 09/13/24 Range/Units 02:05 Total Bilirubin 1.4 H (0.0-1.0) mg/dL Direct Bilirubin 0.9 H (0.0-0.5) mg/dL AST 241 H (5-37) U/L ALT 133 H (0-40) U/L Alkaline Phosphatase 288 H (39-117) U/L Albumin 3.6 (3.5-5.0) g/dL Assessment and Plan (1) Anemia: Qualifiers: Anemia type: unspecified type Qualified Code(s): D64.9 - Anemia, unspecified Status: Acute Plan 1/ Anemia, without overt GI bleeding, hx of Hep C and ongoing drug use ddx: PUD, ischemic hepatitis, malabsorption and malnutrition, hemolysis due to valve disease PLAN: 1/ Plan for EGD tomorrow 2/ trasnfuse as needed to hgb 9-10 g/dl 3/ check hemolysis labs and hematinics Procedures Date of Service Date of Service: 09/14/24
--- NOTE | 2024-09-13 13:04 | MHC.RECOVRN ---
Briefly met with pt in 467 after consult to Addiction Medicine for polysubstance. Pt had presented to the ED reporting SOB with chest pressure as well as LLE lesion/varicose veins. Upon evaluation, pt admitted for unspecified anemia and LUCERO. Pt laying in bed, asleep, briefly wakes to voice. Pt difficult to engage in conversation due to somnolence. Pt upset due to NPO status, encouraged pt to rest/sleep and remain in the hospital. Will continue to follow and support pt. Discussed with Tami Luna APRN.
--- NOTE | 2024-09-13 13:09 | HE.PHANOTE ---
Re Methdaone Pt receives take home bottles of 115mg from [facility]. Confirmed by a Luis Quan RN that they gave him 13 bottles on 09/08/24. Patient states he took a dose yesterday.
[2024-09-13] MEDS: Iron Sucrose Complex 200 MG, Iron Sucrose Complex 100 MG in 0.9 % Sodium Chloride 250 ML 177 MG IV (15:38)
[2024-09-13] MEDS: Gabapentin 100 MG CAPSULE 200 MG PO (15:38)
[2024-09-13] MEDS: 0.9 % Sodium Chloride Flush 3 ML SYRINGE IVFLUSH (17:37)
[2024-09-13] MEDS: Pantoprazole Sodium 40 MG/10 ML VIAL IVPUSH (17:37)
[2024-09-13 20:21] LABS: Hematocrit 27.5 % (42.0-52.0); Hemoglobin 8.5 g/dl (14.0-18.0); Mean Corpuscular HGB Conc 30.9 g/dl (31.0-36.0); Mean Corpuscular Hemoglobin 24.1 pg (27.0-33.0); Mean Corpuscular Volume 77.9 fL (80.0-98.0); Mean Platelet Volume 9.4 fL (9.4-12.4); NRBC Pct Auto 0.3 /100WBC (0.0-0.2); Platelet Count 315 X10*3/uL (160-400); Red Blood Count 3.53 X10*6/uL (4.60-5.80); Red Cell Distribution Width 16.9 % (11.0-16.0); White Blood Count 7.5 X10*3/uL (4.8-10.8)
[2024-09-14] VITALS: BP 95/60; PULSE 81; RESP 20; TEMP 36.5; O2SAT 96
[2024-09-14 04:00] VITALS: BP 94/61; PULSE 80; RESP 16; TEMP 36.9; O2SAT 95
[2024-09-14] MEDS: Pantoprazole Sodium 40 MG/10 ML VIAL IVPUSH (05:32)
[2024-09-14 06:54] VITALS: BP 94/55; PULSE 80; RESP 18; TEMP 37.1; O2SAT 99
--- NOTE | 2024-09-14 07:43 | P.CONAN_ITS ---
HPI - Anesthesia Eval Consult details Narrative: for egd PMFSH Active Problems Active Problems: All Active Problems Anemia (Acute) Rhabdomyolysis (Acute) LUCERO (acute kidney injury) (Acute) Varicose veins of left lower extremity with inflammation (Acute) Bleeding from varicose veins of left lower extremity (Acute) Bleeding from varicose vein (Acute) Opioid use disorder, severe, dependence (Acute) Prolonged QT interval (Acute) Heart failure with mildly reduced ejection fraction (Acute) Hypomagnesemia (Acute) Hypokalemia (Acute) Prosthetic valve malfunction (Acute) Abnormal ECG (Acute) Chest pain (Acute) Active intravenous drug use (Acute) Substance abuse (Acute) Osteomyelitis of left hand (Acute) Right heart failure (Acute) Acute respiratory failure (Acute) History of endocarditis (Acute) Hyperbilirubinemia (Acute) LUCERO (acute kidney injury) (Acute) Sepsis (Acute) Pulmonary embolism without acute cor pulmonale (Acute) Hypoxia (Acute) Sepsis (Acute) Endocarditis (Acute) S/P tricuspid valve replacement (Acute) Endocarditis of tricuspid valve (Acute) Tricuspid valve vegetation (Acute) Back pain (Acute) Endocarditis (Acute) Polysubstance abuse (Acute) Leukocytosis (Acute) Elevated troponin (Acute) Endocarditis (Acute) Opioid use disorder (Acute) Steatosis, liver (Acute) HCV (hepatitis C virus) (Acute) Pulmonary embolism (Acute) Tricuspid valve stenosis (Acute) Anasarca (Acute) Past Medical History Medical History Opioid use disorder, severe, dependence Substance abuse MSSA bacteremia Bacteremia Bacteremia Right heart failure Steatosis, liver Tricuspid valve stenosis Anasarca HCV (hepatitis C virus) Endocarditis Pulmonary embolism Family History Family history of problems with anesthesia: No Surgical History Surgical History History of tricuspid valve replacement with bioprosthetic valve History of Problems with Anesthesia: No Social History Social History Household Members: Unknown / Unable to assess Household Members Other:: none. homeless Housing: Unknown / Unable to assess Do you presently have visiting nurse or other home services: No Unable to assess alcohol history related to: Unknown Alcohol intake: never Patient Tobacco Use Status: Tobacco use Unknown Tobacco use type: Cigarette Cigarette Packs Per Day: 1 Cigarettes Per Day: 5 Years Smoked: 10 Second Hand Smoke Exposure: No Substance Use Type: Crack/Cocaine and Heroin Advance Directives Date on File: 04/16/21 service: No Current occupational status: unemployed Meds Allergies Allergy/AdvReac Type Severity Reaction Status Date / Time No Known Allergies Allergy Verified 09/13/24 01:41 [No Known Allergies*] Active Medications: Current Medications Acetaminophen (Acetaminophen 325 Mg Tablet) 650 mg PO Q6H PRN PRN Reason: Pain, Mild (Pain Scale 1-3), fever or headache Calcium Carbonate (Calcium Carbonate 750 Mg Tab.Chew) 750 mg PO Q4H PRN PRN Reason: Heartburn Gabapentin (Gabapentin 100 Mg Capsule) 200 mg PO TID [facility] Last Admin: 09/13/24 15:38 Dose: 200 mg Hydroxyzine HCl (Hydroxyzine Hcl 50 Mg Tablet) 50 mg PO TID PRN PRN Reason: Anxiety Lactated Ringer's (Lr) 1,000 mls @ 80 mls/hr IVCONT .[id number] [facility] Last Infusion: 09/14/24 07:36 Dose: Infused Magnesium Hydroxide (Milk Of Magnesia 30 Ml Oral.Susp) 30 ml PO DAILY PRN PRN Reason: Constipation Melatonin (Melatonin 3 Mg Tablet) 6 mg PO BEDTIME PRN PRN Reason: Insomnia Methadone HCl (Methadone Hcl 20 Mg/2 Ml Oral.Conc) 115 mg PO DAILY [facility] Pantoprazole Sodium (Pantoprazole Sodium 40 Mg/10 Ml Vial) 40 mg IVPUSH BID@0630,1630 [facility] Last Admin: 09/14/24 05:32 Dose: 40 mg Sertraline HCl (Sertraline Hcl 50 Mg Tablet) 50 mg PO DAILY [facility] Sodium Chloride (0.9 % Sodium Chloride Flush 3 Ml Syringe) 3 ml IVFLUSH QSHIFT [facility] Last Admin: 09/14/24 03:16 Dose: Not Given Trazodone HCl (Trazodone Hcl 50 Mg Tablet) 50 mg PO BEDTIME PRN PRN Reason: Sleep Home Medications ?Medication ?Instructions ?Recorded ?Confirmed ?Last Taken ?Type gabapentin 100 mg capsule 200 mg PO TID 04/13/23 09/13/24 1 Week Ago History ~09/06/24 hydroxyzine HCl 50 mg tablet 50 mg PO TID PRN Anxiety 03/30/24 09/13/24 1 Week Ago History ~09/06/24 methadone 10 mg/mL oral 115 mg PO DAILY 09/13/24 09/13/24 09/12/24 History concentrate (Methadone Intensol) rivaroxaban 10 mg tablet (Xarelto) 10 mg PO DAILY@1700 09/13/24 09/13/24 Unknown History sertraline 50 mg tablet 50 mg PO DAILY 09/13/24 09/13/24 1 Week Ago History ~09/06/24 trazodone 50 mg tablet 50 mg PO BEDTIME PRN Sleep 09/13/24 09/13/24 1 Week Ago History ~09/06/24 Exam Height,Weight and Vital Signs: Height 5 ft 10 in Weight 63.503 kg Last Vital Signs Temp 98.7 F 09/14/24 06:54 Pulse 80 09/14/24 06:54 Resp 18 09/14/24 06:54 BP 94/55 L 09/14/24 06:54 Pulse Ox 99 09/14/24 06:54 O2 Del Method Room Air 09/14/24 06:54 Pertinent Lab Results Pertinent Lab Results: Laboratory Tests 09/13/24 09/13/24 09/13/24 02:05 05:03 06:40 WBC 10.1 RBC 3.37 L D Hgb 8.2 L D 7.6 L Hct 26.5 L D 23.7 L MCV 78.6 L MCH 24.3 L MCHC 30.9 L RDW 16.7 H Plt Count 321 D MPV 9.1 L Immature Gran % (Auto) 1.3 H Neut % (Auto) 65.5 Lymph % (Auto) 22.9 Cooper % (Auto) 9.6 Eos % (Auto) 0.3 Baso % (Auto) 0.4 Lymph # (Auto) 2.3 Cooper # (Auto) 1.0 Eos # (Auto) 0.0 Baso # (Auto) 0.0 Abs Immat Gran (auto) 0.13 H Absolute Neuts (auto) 6.6 Absolute Nucleated RBC 0.020 H Nucleated RBC % (auto) 0.2 Sodium 134 L 134 L Potassium 4.2 3.9 Chloride 99 101 Carbon Dioxide 21 L 23 Anion Gap 18 14 BUN 41 H 37 H Creatinine 1.78 H 1.53 H Estim Creat Clear Calc 52.0 60.5 Estimated GFR 44 52 Random Glucose 67 73 Calcium 9.5 9.1 Magnesium 2.4 Iron 12 L TIBC 356 % Saturation 3 L Unsat Iron Binding 344 Ferritin 18 L Total Bilirubin 1.4 H Direct Bilirubin 0.9 H AST 241 H ALT 133 H Alkaline Phosphatase 288 H Total Creatine Kinase 1000 H 954 H Troponin I High Sens 8.3 7.5 B-Natriuretic Peptide 370 H Total Protein 7.3 Albumin 3.6 Urine Opiates Screen POSITIVE H Ur Buprenorphine Scrn Not Detected Ur Oxycodone Screen Not Detected Urine Methadone Screen Positive H Urine Fentanyl Screen POSITIVE H Ur Barbiturates Screen Not Detected Ur Phencyclidine Scrn Not Detected Ur Amphetamines Screen Not Detected U Benzodiazepines Scrn Not Detected Urine Cocaine Screen POSITIVE H U Marijuana (THC) Screen POSITIVE H Influenza Type A (PCR) NEGATIVE Influenza Type B (PCR) NEGATIVE RSV RNA Qual (PCR) NEGATIVE SARS-CoV-2 RNA (RT-PCR) NEGATIVE Blood Type O Positive Antibody Screen NEGATIVE 09/13/24 19:59 WBC 7.5 RBC 3.53 L Hgb 8.5 L Hct 27.5 L MCV 77.9 L MCH 24.1 L MCHC 30.9 L RDW 16.9 H Plt Count 315 MPV 9.4 Immature Gran % (Auto) Neut % (Auto) Lymph % (Auto) Cooper % (Auto) Eos % (Auto) Baso % (Auto) Lymph # (Auto) Cooper # (Auto) Eos # (Auto) Baso # (Auto) Abs Immat Gran (auto) Absolute Neuts (auto) Absolute Nucleated RBC 0.020 H Nucleated RBC % (auto) 0.3 H Sodium Potassium Chloride Carbon Dioxide Anion Gap BUN Creatinine Estim Creat Clear Calc Estimated GFR Random Glucose Calcium Magnesium Iron TIBC % Saturation Unsat Iron Binding Ferritin Total Bilirubin Direct Bilirubin AST ALT Alkaline Phosphatase Total Creatine Kinase Troponin I High Sens B-Natriuretic Peptide Total Protein Albumin Urine Opiates Screen Ur Buprenorphine Scrn Ur Oxycodone Screen Urine Methadone Screen Urine Fentanyl Screen Ur Barbiturates Screen Ur Phencyclidine Scrn Ur Amphetamines Screen U Benzodiazepines Scrn Urine Cocaine Screen U Marijuana (THC) Screen Influenza Type A (PCR) Influenza Type B (PCR) RSV RNA Qual (PCR) SARS-CoV-2 RNA (RT-PCR) Blood Type Antibody Screen Airway Mallampati Class: II TM Dist: >3cm Neck ROM: Full Heart: rrr Lungs: cta Assessment and Plan Assessment Anesthesia Assessment: Anesthesia Plan Discussed Final Anesthetic Review Family History of Problems with Anesthesia: No History of Problems with Anesthesia: No NPO: Yes ASA Class: III Final Preanesthetic Review: No Changes in Pt Med Stat, Meds/Allgs Chart Reviewed, Consent Obtained/Reviewed and Anes Risks/Benef Reviewed Patient Risk: Intermediate Procedure Risk: Low Anesthetic Plan Anesthetic Plan: GA (polysubstance abuse, if mac not sufficient will consider GA) and MAC: Disposition: Standard PACU
[2024-09-14 07:47] VITALS: BP 96/60; PULSE 76; RESP 16; TEMP 36.7; O2SAT 96
--- NOTE | 2024-09-14 08:32 | PC.NURSE ---
patient agitated and upset that the procedure is cancelled by mD santiago and Anesthesia. patient unwilling to stay in the hospital until thursday to have the procedure. patient explained multiple times and aware of plan of care. patient stating he will leave here and use when he gets out. im an addict .
--- NOTE | 2024-09-14 08:42 | PC.NURSE ---
patient redirected and sent back up to the floor. remains calm at this time. report given to primary nurse juan that he will probably be an AMA.
[2024-09-14] MEDS: methADONE HCl 20 MG/2 ML ORAL.CONC 115 MG PO (08:58)
--- NOTE | 2024-09-14 09:11 | MHC.CM.PN ---
PT DISCHARGING AMA, DECLINES CM ASSESSMENT.
--- NOTE | 2024-09-14 11:01 | P.DS_ITS ---
DS: Providers Provider Date of Service: 09/14/24 Date of admission: 09/13/24 07:53 Date of discharge: 09/14/24 Primary care physician: Sabas Junior MD Consults: 09/13/24 07:51 Consult to Gastroenterology Routine Consulting Provider: Oswald Levine Reason for consultation: anemia, ?gi bleed 09/13/24 07:52 Addiction Medicine Routine Consulting Provider: Addiction Covering Reason for consultation: polysubstance DS: Diagnosis Discharge Diagnosis (1) Anemia: Status: Acute (2) Rhabdomyolysis: Status: Acute (3) LUCERO (acute kidney injury): Status: Acute (4) Opioid use disorder, severe, dependence: Status: Acute DS: Summary Hospital Course Hospital Course: Admission note HPI 33M PMH hepatitis-C with steatohepatitis, polysubstance dependence, history of endocarditis with tricuspid valve replacement, heart failure with reduced ejection fraction, pulmonary embolism, presented feeling unwell. Patient is a vague historian but reports about 1 week of increased fatigue, midsternal chest pain which is constant, no aggravating or relieving factors. Some dyspnea. Reports subjective fevers. In ED lab significant for mild elevation in creatinine, significant drop in hemoglobin, 12.4 in May 2024, now 8.2. Patient denies any signs of bleeding. He does take Xarelto for history of pulmonary embolism though reports noncompliance over the last week. EKG unremarkable, troponin negative. Hospital course The patient was scheduled for EGD but noted to have +ve cocaine in his drug screen. Anesthasia decided to hold on procedure and do it as outpatient when he tests negative. He refused to wait for further work up or recovery of his kidney injury. decided to leave AMA. advised about the risks and potential harm associated with that including worsening anemia, renal failure and potential but he refused and signed AMA papers to leave. Time Attestation Discharge Coordination Time (in mins): 33 Quality: Safe Use of Opioids Does Pt have an Active Cancer Diagnosis on the Problem List?: No Quality: Stroke Does the patient have a stroke diagnosis?: No Physical Exam Vital Signs: Vital Signs: Last Vital Signs Temp 98.1 F 09/14/24 07:47 Pulse 76 09/14/24 07:47 Resp 16 09/14/24 07:47 BP 96/60 09/14/24 07:47 Pulse Ox 96 09/14/24 07:47 O2 Del Method Room Air 09/14/24 07:47 BMI result Body Mass Index 20.1 Const: Other: AMA DS: Data Data Completed and Pending Completed studies during hospitalization [Text1]: Procedures Detoxification Services for Substance Abuse Treatment (11/18/21) Insertion of Endotracheal Airway into Trachea, Via Natural or Artificial Opening (03/03/23) Insertion of Infusion Device into Left Basilic Vein, Percutaneous Approach (03/16/23) Insertion of Infusion Device into Superior Vena Cava, Percutaneous Approach (03/03/23) Introduction of Vasopressor into Central Vein, Percutaneous Approach (03/03/23) Respiratory Ventilation, Greater than 96 Consecutive Hours (03/03/23) Ultrasonography of Superior Vena Cava, Guidance (03/03/23) Labs on day of discharge: Laboratory Results - last 24 hr 09/13/24 19:59 WBC 7.5 RBC 3.53 L Hgb 8.5 L Hct 27.5 L MCV 77.9 L MCH 24.1 L MCHC 30.9 L RDW 16.9 H Plt Count 315 MPV 9.4 Absolute Nucleated RBC 0.020 H Nucleated RBC % (auto) 0.3 H Preliminary micro results at discharge 09/13/24 08:47 Blood Culture - Preliminary Blood - Venous No growth after 24 hours. 09/13/24 08:47 Blood Culture - Preliminary Blood - Venous No growth after 24 hours. Imaging Chest x-ray: Radiologist's impression: ITS Impressions Chest X-Ray 09/13/24 02:15 IMPRESSION: No acute cardiopulmonary disease. Electronically signed by: Eh Mondragon MD 09/13/2024 02:21 AM EST RP Abdomen/Pelvis CT 09/13/24 10:01 IMPRESSION: Limited study. Small amount of ascites. Mild anasarca. Suspect mild diffuse gallbladder wall thickening, nonspecific. Suspect coronary arterial calcification, partially imaged. Electronically signed by: Dave Lazaro MD 09/13/2024 02:32 PM EST RP Discharge Plan Discharge Anticipated Discharge Date/Time: 09/14/24 11:01 Patient Disposition: Left Against Medical Advice Discharge Diagnosis: left AMA Referrals: Name,MD Sabas [Primary Care Provider] - 1 Week Discharge Medications: No Action trazodone 50 mg Tablet 50 mg PO BEDTIME PRN (Reason: Sleep) sertraline 50 mg Tablet 50 mg PO DAILY Xarelto 10 mg tablet 10 mg PO DAILY@1700 methadone [Methadone Intensol] 10 mg/mL Concentrate 115 mg PO DAILY hydroxyzine HCl 50 mg Tablet 50 mg PO TID PRN (Reason: Anxiety) gabapentin 100 mg capsule 200 mg PO TID Discharge Orders: Discharge Order (Routine); Ordered 09/14/24 Ordered By: Robin Huitron Print Language: Tamazight Care Plan Goals: ama Health Concerns: ama Plan of Treatment: ama Assessment: ama Discharge Date/Time: 09/14/24 09:00
== END 2024-09-14 09:00 | disposition left against medical advice (07) | DRG 469 ==
LOC: HO.ED 06:38 → HO.EDOVER 08:01 → HO.IMC 09:11
PROVIDERS: Internal Medicine; Admitting Provider Internal Medicine; Emergency Provider Emergency Medicine; PCP Internal Medicine Geriatric Medicine; Visit Provider Student in an Organized Health Care Education/Training Program
DX: N17.9 Acute kidney failure, unspecified (principal); M62.82 Rhabdomyolysis; I50.22 Chronic systolic (congestive) heart failure; F11.20 Opioid dependence, uncomplicated; K75.81 Nonalcoholic steatohepatitis (NASH); F17.210 Nicotine dependence, cigarettes, uncomplicated; D64.9 Anemia, unspecified; Z95.2 Presence of prosthetic heart valve; E86.1 Hypovolemia; B19.20 Unspecified viral hepatitis C without hepatic coma; Z71.6 Tobacco abuse counseling; F19.20 Other psychoactive substance dependence, uncomplicated; Z20.822 Contact with and (suspected) exposure to COVID-19; Z86.711 Personal history of pulmonary embolism; Z79.01 Long term (current) use of anticoagulants; Z79.899 Other long term (current) drug therapy
CPT/HCPCS: 0241U; 36415; 71045; 74176; 80048; 80076; 80307; 82550; 82728; 83540; 83735; 83880; 84484; 85014; 85018; 85025; 85027; 86850; 86900; 86901; 87040; 93005; 99285; J1756; J2470; J3010; J7120

== ENCOUNTER → 2024-09-13 01:48 | Outpatient (BNV) | payer MEDICAID, SELFPAY | PROVIDERS: Admitting Provider Internal Medicine; Emergency Provider Emergency Medicine; PCP Internal Medicine Geriatric Medicine; Visit Provider Internal Medicine | DX: R06.09 Other forms of dyspnea (principal); I45.19 Other right bundle-branch block; R94.31 Abnormal electrocardiogram [ECG] [EKG] | CPT/HCPCS: 93010 ==

== ENCOUNTER → 2024-09-13 07:53 | Outpatient (BNV) | payer MEDICAID, SELFPAY | PROVIDERS: Admitting Provider Internal Medicine; Emergency Provider Emergency Medicine; PCP Internal Medicine Geriatric Medicine; Visit Provider Internal Medicine Gastroenterology | DX: D64.9 Anemia, unspecified (principal) | CPT/HCPCS: 99223 ==

== ENCOUNTER → 2024-09-13 07:53 | Outpatient (BNV) | payer MEDICAID, SELFPAY | PROVIDERS: Admitting Provider Internal Medicine; Emergency Provider Emergency Medicine; Visit Provider Internal Medicine | DX: D64.9 Anemia, unspecified (principal); M62.82 Rhabdomyolysis; N17.9 Acute kidney failure, unspecified; F11.20 Opioid dependence, uncomplicated | CPT/HCPCS: 99222; 99239 ==

== ENCOUNTER 2024-09-20 13:03 | Outpatient (AMB) | payer MEDICAID, SELFPAY ==
--- NOTE | 2024-09-20 13:08 | MHC.OFFVIS ---
Intake Visit Reasons: follow up [facility] 08/22/2024 Intake Note: Patient presents for [facility] follow up , no complaints. Accompanied by: Self / Same As Patient Allergies No Known Allergies [No Known Allergies*] Allergy (Verified 09/20/24 13:08) [facility] HPI follow up [facility] 08/22/2024: Details: Complex 33-year-old gentleman with a history of polysubstance abuse who actually admits he is currently using as well. Presents for evaluation regarding left lower extremity varicose veins. Unfortunately it does not seem that he has been compliant since his last visit. No evidence of use of compression stockings. He has not had a bleeding episode since his last visit. He now presents for follow-up with venous insufficiency testing. [facility] Medical History Opioid use disorder, severe, dependence Substance abuse MSSA bacteremia Bacteremia Bacteremia Right heart failure Steatosis, liver Tricuspid valve stenosis Anasarca HCV (hepatitis C virus) Endocarditis Pulmonary embolism Surgical History History of tricuspid valve replacement with bioprosthetic valve Social History Household Members: Unknown / Unable to assess Household Members Other:: none. homeless Housing: Unknown / Unable to assess Do you presently have visiting nurse or other home services: No Unable to assess alcohol history related to: Unknown Alcohol intake: never Patient Tobacco Use Status: Current everyday Tobacco user Tobacco use type: Cigarette Cigarette Packs Per Day: 1 Cigarettes Per Day: 5 Years Smoked: 10 Second Hand Smoke Exposure: No Substance Use Type: Crack/Cocaine and Heroin Advance Directives Date on File: 04/16/21 service: No Current occupational status: unemployed Review of Systems Const Reports as per HPI ENT Reports no additional complaints Card Denies chest pain, Denies chest pain at rest and Denies chest pain with activity Resp Denies chest congestion and Denies cough GI Reports no additional complaints Musc Details: pain over varicosities, aching of lower extremities, swelling, cramping, heaviness and tiredness, itching Denies abnormal gait Skin/Breast Reports pruritus and Denies wounds Neuro Reports no additional complaints and Denies abnormal gait Psych Denies no additional complaints Physical Exam Const General: cooperative, healthy appearing and comfortable Orientation/consciousness: oriented to person, oriented to place and oriented to time Neck Carotids: no bruits Chest Chest palpation & inspection: normal inspection of the chest and normal palpation of entire chest wall Resp Effort & Inspection: normal respiratory effort and able to speak in complete sentences Cardio Rate: regular rate Heart sounds: S1 normal heart sound present and S2 normal heart sound present Peripheral pulses: Peripheral pulses 2+ throughout GI Inspection: Yes normal to inspection Skin Other: +2 edema, large rope-like varicosities greater than 4 mm left calf CEAP Classification C4 - skin color changes Ep - Etiology Primary As - superficial veins P - reflux General skin exam: dry skin Neuro General: oriented to person, oriented to place and oriented to time Extrem Right lower extremity: full ROM, normal capillary refill and edema Left lower extremity: full ROM, normal capillary refill and edema Psych Mental Status: mental status grossly normal Results Reviewed Results Reviewed: Brief summary of venous insufficiency testing is as follows: right great saphenous vein: negative right small saphenous vein: negative right accessory vein: none present left great saphenous vein: Focally positive in calf only left small saphenous vein: negative left accessory vein: none present Please note there is no evidence of any venous aneurysms or significant tortuosity Assessment & Plan Assessment & Plan (1) Varicose veins of left lower extremity with inflammation: Code(s): I83.12 - Varicose veins of left lower extremity with inflammation Category: Medical Plan: In short patient has evidence of venous insufficiency in left calf only. At the current time would treat this conservatively. We did discuss routine conservative measures including compression elevation and exercise. I do think it would be important for him to be compliant with his compression in order to try to at least see if there is some affect of this. At the current time would not be a surgical candidate due to his active substance abuse. I did relay this information to the patient. After trial of compression and his symptoms do not improve would be happy to see him back. Thank you for allowing us to assist in his care. If there are any questions or concerns please do not hesitate to contact us. Coding Level of Care Code Est Pt Level 4 (16407) Complex EM visit Add On G2211 Diagnoses Varicose veins of left lower extremity with inflammation I83.12
== END 2024-09-20 13:51 | disposition home or self-care (01) ==
PROVIDERS: Visit Provider Surgery Vascular Surgery
DX: I83.12 Varicose veins of left lower extremity with inflammation (principal)
CPT/HCPCS: 99214

== ENCOUNTER → 2024-09-20 13:03 | Outpatient (BNVA) | payer MEDICAID, SELFPAY | PROVIDERS: Visit Provider Surgery Vascular Surgery | DX: I83.12 Varicose veins of left lower extremity with inflammation (principal); F17.210 Nicotine dependence, cigarettes, uncomplicated | CPT/HCPCS: 99212 ==

== ENCOUNTER 2024-09-21 17:28 | Emergency (ER) | payer MEDICAID, SELFPAY ==
[2024-09-21 17:36] VITALS: BP 160/98; PULSE 110; O2SAT 94
[2024-09-21 17:42] VITALS: BMI 22.4
[2024-09-21 18:01] VITALS: BP 115/73; PULSE 112; RESP 18; TEMP 36.4; O2SAT 92
--- NOTE | 2024-09-21 18:08 | PC.NURSE ---
Patient stating he is only here to get his left lower leg looked at - not for his other health issues. Provider educated patient on risks of leaving , patient stating he is aware and he wants to go
[2024-09-21] MEDS: Bacitracin Oint 0.9 GM PACKET 1 APPL TOPICAL (18:09)
--- NOTE | 2024-09-21 18:11 | ED_ITS ---
HPI - Extremity Injury (Lower) General Chief Complaint: Extremity Injury, Lower Stated Complaint: VARICOSE VEIN BLEED Time Seen by Provider: 09/21/24 17:40 Source: patient Mode of arrival: EMS Limitations: no limitations History of Present Illness ED Provider: Dr. Carlos Malone HPI Narrative: 33-year-old male with a past medical history of hepatitis-C with steatohepatitis, polysubstance dependence, history of endocarditis with tricuspid valve replacement, heart failure with reduced ejection fraction, pulmonary embolism who presents emergency department by ambulance for evaluation of bleeding from a varicose vein in his left lower extremity. Patient states that he has had difficulty with bleeding from a varicose vein in his area in the past several weeks he states that initially he had sutures placed over the varicose vein but then this became infected and the stitches removed he was treated with antibiotics. He states that there was a scab over the varicose vein and today he believes that the scab fell off. He denies injuring the leg or scratching in the area where the scab was located. The patient had significant bleeding therefore an ambulance was called and he was brought to emergency department. When I evaluated the patient he was wrapped in multiple layers of gauze which was soaked through with blood. When these layers removed he was not actively bleeding but he did have a area of ulcerated skin over a varicose vein which was not actively bleeding. Patient states that he did use injection cocaine and heroin at around 14:00 hours. He states that over the last several days he has had subjective fever and chills. He has had a nonproductive cough. He has had chest pain, shortness of breath, dyspnea on exertion. He was noted dark stools but no bloody stools. States he has had increased heartburn like symptoms. Patient states he did leave the hospital against medical advice and I did review the discharge summary from 09/14/2024. The patient had presents emergency department with 1 week of increased fatigue, midsternal chest pain. He was found to have a significant drop in his hemoglobin from 12.4-8.2 but had no active signs of bleeding. Patient was on Xarelto for pulmonary embolism but was noncompliant. He was found to have rhabdomyolysis and acute kidney injury. He was scheduled for an EGD but it was urine tox screen was positive for cocaine in the anesthesiologist wanted to delay the EGD for several days however the patient left against medical advice. He told me that he does not want any blood work and he just wants to have his varicose vein addressed. Patient states that he was in a methadone maintenance program and he did receive his dose of methadone today and he has take-home doses that he can take over the next several days Related Data Home Medications ?Medication ?Instructions ?Recorded ?Confirmed gabapentin 100 mg capsule 200 mg PO TID 04/13/23 09/13/24 hydroxyzine HCl 50 mg tablet 50 mg PO TID PRN Anxiety 03/30/24 09/13/24 methadone 10 mg/mL oral 115 mg PO DAILY 09/13/24 09/13/24 concentrate (Methadone Intensol) rivaroxaban 10 mg tablet (Xarelto) 10 mg PO DAILY@1700 09/13/24 09/13/24 sertraline 50 mg tablet 50 mg PO DAILY 09/13/24 09/13/24 trazodone 50 mg tablet 50 mg PO BEDTIME PRN Sleep 09/13/24 09/13/24 Allergies Allergy/AdvReac Type Severity Reaction Status Date / Time No Known Allergies Allergy Verified 09/21/24 17:43 [No Known Allergies*] Review of Systems Review of Systems: Yes all other systems are reviewed and are negative [facility] Past Medical History [facility] Narrative: Past medical history: Patient does smoke cigarettes. He states that he was not drank alcohol in 3 years since he had his valve replacement for endocarditis. He continues to use injection heroin and cocaine in the last used at 14:00 hours. He states that he was compliant with his methadone maintenance program. Medical History Opioid use disorder, severe, dependence Substance abuse MSSA bacteremia Bacteremia Bacteremia Right heart failure Steatosis, liver Tricuspid valve stenosis Anasarca HCV (hepatitis C virus) Endocarditis Pulmonary embolism Surgical History History of tricuspid valve replacement with bioprosthetic valve Social History Social History Household Members: Unknown / Unable to assess Household Members Other:: none. homeless Housing: Unknown / Unable to assess Do you presently have visiting nurse or other home services: No Unable to assess alcohol history related to: Unknown Alcohol intake: former Patient Tobacco Use Status: Current everyday Tobacco user Tobacco use type: Cigarette Cigarette Packs Per Day: 1 Cigarettes Per Day: 5 Years Smoked: 10 Second Hand Smoke Exposure: No Substance Use Type: Crack/Cocaine and Heroin Advance Directives Date on File: 04/16/21 service: No Current occupational status: unemployed Physical Exam Vital Signs: Vital Signs: Last Vital Signs Temp 97.6 F 09/21/24 18:01 Pulse 112 H 09/21/24 18:01 Resp 18 09/21/24 18:01 BP 115/73 09/21/24 18:01 Pulse Ox 92 09/21/24 18:01 O2 Del Method Room Air 09/21/24 18:01 BMI result Body Mass Index 22.4 Vital signs revealed an elevated heart rate of 112 otherwise unremarkable Exam: General: Patient was somnolent but arousable when he was awake he does answer questions appropriately but falls asleep if not stimulated Head: Normocephalic, atraumatic EENT: PERRL, Lids normal, sclera normal, conjunctiva normal, nose normal , ears normal, throat without erythema or exudates Neck: Supple, no adenopathy Lung: breath sounds symmetric, no wheezing, rales or rhonchi Chest: symmetric movement, nontender Heart: Tachycardia with a normal rhythm, normal S1, S2 no murmurs or rubs Abdomen: soft, non-tender, nondistended, normal bowel sounds Back: no vertebral tenderness, no CVAT Extremities: Patient has left pretibial area has an area of skin ulceration over a varicose vein, there is insufficient skin to suture over the varicose vein Neuro: Somnolent, arousable but falls asleep when not stimulated normal speech, cranial nerves intact, moves all extremities symmetrically Psych: Pleasant, cooperative Medications Administered Discontinued Medications Generic Name Dose Route Start Last Admin Trade Name Freq PRN Reason Stop Dose Admin Bacitracin 1 appl 09/21/24 17:54 09/21/24 18:09 Bacitracin Oint 0.9 Gm Packet TOPICAL 09/21/24 17:55 1 appl ONCE ONE Administration Protocol Medical Decision Making Medical Decision Making MDM Narrative: 33-year-old male with a past medical history of hepatitis-C with stea tohepatitis, polysubstance dependence, history of endocarditis with tricuspid valve replacement, heart failure with reduced ejection fraction, pulmonary embolism who presents emergency department by ambulance for evaluation of bleeding from a varicose vein in his left lower extremity. Patient recently left [facility] on 09/14/2024 against medical advice. He was admitted for rhabdomyolysis, acute kidney injury, acute anemia subjective fever and chills. Patient left prior to getting an EGD. Patient still complains of subjective fever and chills, productive cough, chest pain, shortness of breath dyspnea on exertion and dark stools but states that he does not want any further evaluation only wants treatment for his bleeding varicose vein. Patient did use injection heroin and cocaine prior to coming to emergency department. He he was in a methadone maintenance program and he took his methadone today and has take-home methadone to take over the next several days. Vital signs revealed an elevated heart rate otherwise unremarkable. Physical examination was significant for a varicose vein that bled heavily but is now not acutely bleeding. Differential diagnosis: ?Includes but is not limited to endocarditis, anemia secondary to upper GI bleed, opiate/methadone narcosis, bleeding dyscrasia, bleeding varicose vein Course: 18:30 The patient did not want to address his fever, chills, chest pains, shortness of breath, dyspnea on exertion and only wanted treatment for his bleeding varicose vein. The skin over the vein is ulcerated and there was not enough skin to suture over the vein and I did discuss this with the patient. The patient was placed in a complex layered dressing. The layers from inside-out were as follows: Bacitracin, Surgicel, Vaseline gauze, Tegaderm, gauze pressure dressing held in place with Kerlix dressing. Kerlix dressing was then covered with Coban. Patient was discharged home and he was advised to keep the pressure dressing on for 3 days. I told him that he should not remove it and that he should either return to the emergency department, sees PCP or go to an urgent care to have this dressing for [place] removed. Patient understood this instruction and states that he may come back tomorrow to address his other issues but he does not want to stay in the emergency department at this time. Patient was able to underst and the consequences of his decision and the potential life-threatening illnesses that may be leading to his symptoms. The patient was discharged home Admission/Observation Consideration of admission/observation: Escalation of care including admission/observation considered (Yes) Chronic Conditions Patient?s care impacted by: Other (Opiate use disorder, cocaine use disorder, prosthetic valve) Social Determinants Patient?s care significantly limited by Social Determinants of Health including: Other Social Determinant of Health (Drug use disorder) Discharge Plan Discharge Clinical Impression: Bleeding from varicose veins of left lower extremity Patient Disposition: Home, Self-Care Additional Instructions: You have a skin ulcer over a varicose vein on your left lower leg which bled heavily today. There is not enough skin to put sutures across the varicose vein therefore I covered the bleeding vein with a complex layered dressing : baci tracin, Surgicel, Vaseline gauze, Tegaderm and a pressure dressing with gauze, Kerlix and Coban. This dressing needs to stay on for 3 days and should be removed by the emergency department, your doctor or an urgent care clinic. Do not remove this yourself since the dressing should be carefully removed to not peel off any healing scab. If you change your mind and you want us to do blood work on you to determine why your feeling weak, having subjective fever and chills then returned to the emergency department. Follow-up with your doctor in 2 days. Please return to the emergency department if your symptoms get worse or if you develop any symptoms that are concerning to you. Prescriptions: No Action trazodone 50 mg Tablet 50 mg PO BEDTIME PRN (Reason: Sleep) sertraline 50 mg Tablet 50 mg PO DAILY Xarelto 10 mg tablet 10 mg PO DAILY@1700 methadone [Methadone Intensol] 10 mg/mL Concentrate 115 mg PO DAILY hydroxyzine HCl 50 mg Tablet 50 mg PO TID PRN (Reason: Anxiety) gabapentin 100 mg capsule 200 mg PO TID Print Language: Niuean
[2024-09-21 18:43] VITALS: BP 115/73; PULSE 112; RESP 18; TEMP 36.4; O2SAT 92
== END 2024-09-21 18:40 | disposition home or self-care (01) ==
PROVIDERS: Emergency Provider Emergency Medicine Emergency Medical Services
DX: I83.892 Varicose veins of left lower extremity with other complications (principal); F17.210 Nicotine dependence, cigarettes, uncomplicated; Z79.899 Other long term (current) drug therapy
CPT/HCPCS: 99283; 99284

== ENCOUNTER 2024-09-23 02:39 | Inpatient (IN) | payer MEDICAID, SELFPAY ==
[2024-09-23] VITALS (10 sets, daily range): BP systolic 106–142; BP diastolic 68–90; PULSE 90–106; RESP 14–26; TEMP 36–36.9; O2SAT 86–96; BMI 24.2
--- NOTE | 2024-09-23 | ECG_ITS ---
Test Reason : chest pain Blood Pressure : / mmHG Vent. Rate : 106 BPM Atrial Rate : 106 BPM P-R Int : 128 ms QRS Dur : 088 ms QT Int : 350 ms P-R-T Axes : 063 077 016 degrees QTc Int : 464 ms Poor data quality Sinus tachycardia with frequent Premature ventricular complexes Otherwise normal ECG When compared with ECG of 13-SEP-2024 02:08, Premature ventricular complexes are now Present T wave inversion no longer evident in Anterior leads Referred By: Timothy Tomlinson Electronically Signed By:Pedro Chang
--- NOTE | ~2024-09-23 | XR_ITS ---
EXAMINATION: XR CHEST CLINICAL INFORMATION: ?pneumonia COMPARISON: September 13, 2024. TECHNIQUE: Frontal view of the chest was obtained. FINDINGS: The cardiomediastinal silhouette is stable. There has been a previous median sternotomy. Radiopaque leads are again seen in place. There are bilateral mid lung field infiltrates. There are no significant pleural effusions. The bony structures and the soft tissues are unremarkable. XR/XR chest 1V IMPRESSION: Bilateral mid lung field infiltrates consistent with pneumonia. Electronically signed by: Eh Mondragon MD 09/23/2024 04:52 AM [facility]
--- NOTE | 2024-09-23 02:56 | ED_ITS ---
HPI - General Adult General Chief complaint: Dyspnea Stated complaint: Unkn infection seen @ [facility] 2days ago left AMA Time Seen by Provider: 09/23/24 02:43 History of Present Illness ED Provider: HPI narrative: 33M PMH hepatitis-C with steatohepatitis, polysubstance dependence, history of endocarditis with tricuspid valve replacement, heart failure with reduced ejection fraction, pulmonary embolism, on Xarelto was seen here on 09/13 AMA on 09/14 comes here as he is not feeling good used IV drugs cocaine and heroin saturating 86% at room air says that whenever he ambulates feels very short of breath noncompliant to his medication has not taken medicine for last 1 week Related Data Home Medications ?Medication ?Instructions ?Recorded ?Confirmed gabapentin 100 mg capsule 200 mg PO TID 04/13/23 09/13/24 hydroxyzine HCl 50 mg tablet 50 mg PO TID PRN Anxiety 03/30/24 09/13/24 methadone 10 mg/mL oral 115 mg PO DAILY 09/13/24 09/13/24 concentrate (Methadone Intensol) rivaroxaban 10 mg tablet (Xarelto) 10 mg PO DAILY@1700 09/13/24 09/13/24 sertraline 50 mg tablet 50 mg PO DAILY 09/13/24 09/13/24 trazodone 50 mg tablet 50 mg PO BEDTIME PRN Sleep 09/13/24 09/13/24 Allergies Allergy/AdvReac Type Severity Reaction Status Date / Time No Known Allergies Allergy Verified 09/23/24 02:55 [No Known Allergies*] Review of Systems 2 Review of Systems: Yes all other systems are reviewed and are negative [facility] Past Medical History Medical History (Updated 09/23/24 @ 06:26 by Rafael Razo MD) Rhabdomyolysis Anemia LUCERO (acute kidney injury) Polysubstance abuse Opioid use disorder Opioid use disorder, severe, dependence Substance abuse MSSA bacteremia Bacteremia Bacteremia Right heart failure Steatosis, liver Tricuspid valve stenosis Anasarca HCV (hepatitis C virus) Endocarditis Pulmonary embolism Surgical History History of tricuspid valve replacement with bioprosthetic valve Social History Social History Household Members: Unknown / Unable to assess Household Members Other:: none. homeless Housing: Unknown / Unable to assess Do you presently have visiting nurse or other home services: No Unable to assess alcohol history related to: Unknown Alcohol intake: former Patient Tobacco Use Status: Never used Tobacco Tobacco use type: Cigarette Cigarette Packs Per Day: 1 Cigarettes Per Day: 5 Years Smoked: 10 Smoked in Last 30 Days: No Second Hand Smoke Exposure: No Use of substances other than those prescribed or required for medical reasons: Yes Substance Use Type: Crack/Cocaine Advance Directives: Yes Advance Directives on File: Yes Advance Directives Date on File: 04/16/21 Do you have a plan to hurt others: No Plan Nutrition Risks: No Nutritional Risk service: No Current occupational status: unemployed Physical Exam ED Vital Signs: Vital Signs - 24 hr 09/23/24 02:42 09/23/24 03:44 09/23/24 04:34 Temperature 96.8 F 97.6 F Pulse Rate 106 H 100 100 Respiratory Rate 26 H 17 16 Blood Pressure 130/79 121/75 116/77 Pulse Oximetry 86 L 95 Oxygen Delivery Method Room Air Nasal Cannula Oxygen Flow Rate 2 09/23/24 04:37 09/23/24 04:44 Temperature 98.2 F Pulse Rate 105 H 102 H Respiratory Rate 20 14 Blood Pressure 116/77 109/68 Pulse Oximetry 95 Oxygen Delivery Method Nasal Cannula Oxygen Flow Rate 2 BMI result Body Mass Index 24.2 Appearance: Alert. Oriented X3. No acute distress. Eyes: PERRLA, No Nystagmus ENT: Pharynx normal. Oral Mucosa moist Neck: Normal inspection. Neck supple. CVS: Normal heart rate and rhythm. Pulses normal. Respiratory: No respiratory distress. Equal air entry bilateral, no wheezing/rales/rhonchi Abdomen: Soft and nontender. Bowel sounds are present, no mass palpable, no CVA tenderness Skin: Skin warm and dry. Normal skin color. Normal skin turgor. Extremities: No lower extremity edema. No calf tenderness Neuro: Oriented X 3. No motor deficit. No sensory deficit.No cerebellar signs , cranial nerves II-XII intact Medications Administered Generic Name Dose Route Start Last Admin Trade Name Freq PRN Reason Stop Dose Admin Dextrose 250 mls @ 750 mls/hr 09/23/24 04:15 09/23/24 04:50 D10 IV Infused Q15M PRN Infusion per Hypoglycemia Standing Ord. Sodium Chloride 1,000 mls @ 75 mls/hr 09/23/24 05:45 09/23/24 05:56 Ns IVCONT 09/23/24 19:04 75 mls/hr .[id number] CRISTINA Administration Pantoprazole Sodium 40 mg 09/23/24 05:40 09/23/24 05:55 Pantoprazole Sodium 40 Mg/10 Ml Vial IVPUSH 40 mg BID@0630,1630 CRISTINA Administration Discontinued Medications Generic Name Dose Route Start Last Admin Trade Name Freq PRN Reason Stop Dose Admin Sodium Chloride 1,000 mls @ 999 mls/hr 09/23/24 03:30 09/23/24 04:28 Ns IV 09/23/24 04:30 Infused .Q1H1M ONE Infusion Vancomycin HCl 1,000 mg/ 270 mls @ 270 mls/hr 09/23/24 03:30 09/23/24 05:33 Sodium Chloride IV 09/23/24 04:29 Infused ONCE ONE Infusion Piperacillin Sod/Tazobactam 50 mls @ 100 mls/hr 09/23/24 03:30 09/23/24 04:13 Sod 3.375 gm/ Sodium Chloride IV 09/23/24 03:59 Infused ONCE ONE Infusion Sodium Chloride 1,000 mls @ 999 mls/hr 09/23/24 04:09 09/23/24 05:49 Ns IV 09/23/24 05:09 Infused .Q1H1M ONE Infusion Medical Decision Making Medical Decision Making [facility] Narrative: Patient IVDA user with history of MSSA bacteremia comes here for hypoxia and cough workup showed bilateral pneumonia with leukocytosis lactic acidosis meeting the criteria for sepsis patient received IV fluids and IV antibiotics will admit patient for further management patient has missed his Xarelto for last 1 week will hold anticoagulation as patient is anemic pending workup D- dimer is elevated which is been there in the past advised weak use can as has a LUCERO/CKD hospitalist with decide about PE studies if needed Differential Diagnosis Differential Diagnoses: The differential diagnosis associated with the presentation includes Bacteremia/septic emboli/sepsis/IVDA use/LUCERO Admission/Observation Consideration of admission/observation: Escalation of care including admission/observation considered Consult Healthcare Provider Management of the patient was discussed with: Hospitalist Lab Data [facility] Lab Attestation statement: I reviewed the patient's lab results. 09/23/24 03:31 09/23/24 03:31 Labs: Lab Results 09/23/24 09/23/24 09/23/24 Range/Units 03:30 03:31 05:09 WBC 16.1 H (4.8-10.8) X10*3/uL RBC 3.38 L (4.60-5.80) X10*6/uL Hgb 7.7 L (14.0-18.0) g/dl Hct 26.1 L (42.0-52.0) % MCV 77.2 L (80.0-98.0) fL MCH 22.8 L (27.0-33.0) pg MCHC 29.5 L (31.0-36.0) g/dl RDW 17.6 H (11.0-16.0) % Plt Count 308 (160-400) X10*3/uL MPV 10.0 (9.4-12.4) fL Immature Gran % (Auto) 1.2 H (0.0-0.4) % Neut % (Auto) 78.1 H (45-73) % Lymph % (Auto) 12.1 L (20-40) % [place] % (Auto) 8.0 (2-11) % Eos % (Auto) 0.4 (0-4) % Baso % (Auto) 0.2 (0-2) % Lymph # (Auto) 2.0 (1.2-4.9) X10*3/uL [place] # (Auto) 1.3 H (0.1-1.2) X10*3/uL Eos # (Auto) 0.1 (0.0-0.4) X10*3/uL Baso # (Auto) 0.0 (0.0-0.2) X10*3/uL Abs Immat Gran (auto) 0.20 H (0.00-0.03) X10*3/uL Absolute Neuts (auto) 12.6 H (2.0-8.3) x10*3/uL Absolute Nucleated RBC 0.030 H (0.0-0.012) X10*3/uL Nucleated RBC % (auto) 0.2 (0.0-0.2) /100WBC PT 33.2 H (10.9-12.4) SEC INR 2.8 H (0.9-1.1) APTT 37.5 H (26.0-36.8) SEC D-Dimer High Sensitivty 2159 NG/ML Sodium 140 (135-145) mmol/L Potassium 5.0 D (3.3-5.1) mmol/L Chloride 110 H (96-108) mmol/L Carbon Dioxide 15 L (22-29) mmol/L Anion Gap 20 (12-20) BUN 35 H (9-16) mg/dL Creatinine 1.96 H (0.5-1.4) mg/dL Estim Creat Clear Calc 47.4 Estimated GFR 39 POC Glucose 100 (60-115) mg/dL Random Glucose 58 L* (60-115) mg/dL Lactic Acid 4.4 H* (0.5-2.0) mmol/L Calcium 9.3 (8.4-10.2) mg/dL Total Bilirubin 1.5 H (0.0-1.0) mg/dL AST 152 H (5-37) U/L ALT 79 H (0-40) U/L Alkaline Phosphatase 211 H (39-117) U/L Total Creatine Kinase 1302 H (38-174) U/L Troponin I High Sens 7.2 (<3.5-35.0) ng/L B-Natriuretic Peptide 641 H (<100) pg/mL Total Protein 6.8 (6.5-8.0) g/dL Albumin 3.3 L (3.5-5.0) g/dL Influenza Type A (PCR) NEGATIVE (Negative) Influenza Type B (PCR) NEGATIVE (Negative) RSV RNA Qual (PCR) NEGATIVE (Negative) SARS-CoV-2 RNA (RT-PCR) NEGATIVE (Negative) Blood Type O Positive Antibody Screen NEGATIVE Independent Interpretation I performed an independent interpretation of an: Plain X-Ray Interpretation: XR/XR chest 1V IMPRESSION: Bilateral mid lung field infiltrates consistent with pneumonia. Electronically signed by: Eh Mondragon MD 09/23/2024 04:52 AM [facility] Sinus tachycardia with heart rate of 106 beats per minute occasional PVCs no acute STT wave changes no acute ischemia Radiology Impression Discussion of test interpretation with radiology: I have reviewed the radiologist's reading. Critical Care Time Critical Care Time Critical Care Time: Yes Total Critical Care Time: 60 Attestation: The patient was critically ill with a high probability of imminent or life threatening deterioration. I spent greater than 65???minutes of discontinuous time evaluating the patient,delivering critical care at the bedside, discussing and evaluating pertinent data with consultants. Critical care time does not include time spent performing separately billable procedures or teaching. Total time spent performing critical care was 60???minutes. Discharge Plan Discharge Clinical Impression: Bacteremia Pneumonia Qualifiers: Pneumonia type: aspiration pneumonia Laterality: right Lung location: middle lobe of lung Patient Disposition: Admitted As Inpatient
--- NOTE | 2024-09-23 03:00 | PC.NURSE ---
pt biba from [facility], a&ox4, respirations even and unlabored. pt reporting sudden onset of shortness of breath and chest pain. pt was 88% on room air, ems placed pt on 2L nasal cannula in which pt was 96%. on arrival, pt 86% on room air, placed on 2L 92%. pt reports he left AMA 2 days ago due to not wanting to stay for the treatment legth. pt admits to IV drug use around 1pm today. unable to obtain oral temp on pt, pt refusing rectal temp. provider aware.
[2024-09-23] MEDS: Piperacillin Sodium/Tazobactam 3.375 GM in 0.9 % Sodium Chloride 50 ML IV (03:39)
[2024-09-23] MEDS: 0.9 % Sodium Chloride 1,000 ML 999 ML IV ×2 (03:39→04:36)
[2024-09-23 03:43] LABS: MANUAL DIFF FLAG NO
[2024-09-23 03:44] LABS: Basophils Percent Auto 0.2 % (0-2); Eosinophils Absolute Auto 0.1 X10*3/uL (0.0-0.4); Eosinophils Percent Auto 0.4 % (0-4); Hematocrit 26.1 % (42.0-52.0); Hemoglobin 7.7 g/dl (14.0-18.0); Imm Gran Pct Auto 1.2 % (0.0-0.4); Lymphocytes Percent Auto 12.1 % (20-40); Mean Corpuscular HGB Conc 29.5 g/dl (31.0-36.0); Mean Corpuscular Hemoglobin 22.8 pg (27.0-33.0); Mean Corpuscular Volume 77.2 fL (80.0-98.0); Monocytes Absolute Auto 1.3 X10*3/uL (0.1-1.2); NRBC Pct Auto 0.2 /100WBC (0.0-0.2); Neutrophils Absolute Auto 12.6 x10*3/uL (2.0-8.3); Neutrophils Percent Auto 78.1 % (45-73); Platelet Count 308 X10*3/uL (160-400); Red Blood Count 3.38 X10*6/uL (4.60-5.80); Red Cell Distribution Width 17.6 % (11.0-16.0); White Blood Count 16.1 X10*3/uL (4.8-10.8)
[2024-09-23 03:50] LABS: INTERNATIONAL NORM RATIO 2.8 (0.9-1.1); Prothrombin Time 33.2 SEC (10.9-12.4)
--- NOTE | 2024-09-23 03:52 | PC.NURSE ---
0332- sepsis alert called at this time, at bedside placing ultrasound IV guided line at this time, 18G left ac. 1L bolus administered and antibiotics administered.
[2024-09-23 03:53] LABS: Partial Thromboplastin Time 37.5 SEC (26.0-36.8)
[2024-09-23 04:03] LABS: Troponin-I High Sensitivity 7.2 ng/L (<3.5-35.0)
[2024-09-23 04:04] LABS: B Type Natriuretic Peptide 641 pg/mL (<100)
[2024-09-23 04:09] LABS: Lactic Acid 4.4 mmol/L (0.5-2.0)
[2024-09-23 04:12] LABS: Albumin Level 3.3 g/dL (3.5-5.0); Anion Gap 20 (12-20); Aspartate Amino Transferase 152 U/L (5-37); Bilirubin Total 1.5 mg/dL (0.0-1.0); Blood Urea Nitrogen 35 mg/dL (9-16); Calcium 9.3 mg/dL (8.4-10.2); Carbon Dioxide 15 mmol/L (22-29); Chloride 110 mmol/L (96-108); Creatinine Clr Calc Pharmacy 47.4; Estimated Glomerular Filt Rate 39; Glucose Random 58 mg/dL (60-115); Sodium 140 mmol/L (135-145); Total Protein 6.8 g/dL (6.5-8.0)
[2024-09-23 04:24] LABS: Alanine Aminotransferase 79 U/L (0-40); Alkaline Phosphatase 211 U/L (39-117); Influenza A PCR NEGATIVE (Negative); Influenza B PCR NEGATIVE (Negative); Resp Syncy Virus RNA Qual PCR NEGATIVE (Negative); SARS COV2 PCR INHOUSE NEGATIVE (Negative)
[2024-09-23 04:27] LABS: D Dimer High Sensitivity 2159 NG/ML
[2024-09-23] MEDS: Dextrose 10 % 250 ML 750 ML IV (04:29)
[2024-09-23] MEDS: vancomycin HCL 1,000 MG in 0.9 % Sodium Chloride 250 ML 270 MG IV (04:36)
[2024-09-23 05:25] LABS: Glucose, Whole Blood 100 mg/dL (60-115)
--- NOTE | 2024-09-23 05:30 | P.HPHOSP_ITS ---
History of Present Illness Date of Service: 09/23/24 Attending physician on admission: Rafael Razo Chief Complaint: Shortness of breath Norberto Marquez is a 33 years old man with past medical history significant for ongoing polysubstance abuse (including heroin, cocaine, crack and marijuana), endocarditis requiring tricuspid valve replacement, HFrEF (EF 40-45%), hepatitis-C and pulmonary embolism presents to the emergency department complaining of shortness on breath. HPI was limited and obtained mostly from the chart reviewas the patient was verbally abusive. he was recently hospitalized September 13 with chest pain, LUCERO due to rhabdomyolysis and acute anemia concerning for GI bleeding. Unfortunately, once again he left against medical advice and refused to undergo recovery from kidney injury. He actually has history of abandoning the hospital against medical advice a multiple occasions. Last time he used drugs was yesterday at 2 pm. EGD was postponed as the patient came back positive for cocaine. Upon questioning the patient about his expectations from the medical team as he continues to leave the hospital without completing treatments and continuing using illegal drugs he said that he expects to continue receiving treatment every time he returns to the hospital despite he is aware that his decisions are interfering with his recovery and brings our efforts back to 0. He became defensive, agitated and verbally abuse. In the ED, he was found to have low O2 sats, 86% and currently requiring 2 liters/minutes supplemental oxygen. He also has low-grade tachycardia. There is no hypotension or fever. blood workup is significant for worsening creatinine and CPK. Troponin is negative. on September 13 he underwent abdomen pelvis CT scan showing small amount of ascites, suspected diffuse gallbladder wall thickening. ECG showed sinus tachycardia with frequent PVCs. ED tx: NS 2 L bolus, vancomycin 1 g IV, Zosyn 3.375 g Review of Systems 2 Review of Systems: limited [facility] Medical History (Updated 09/23/24 @ 06:26 by Rafael Razo MD) Rhabdomyolysis Anemia LUCERO (acute kidney injury) Polysubstance abuse Opioid use disorder Opioid use disorder, severe, dependence Substance abuse MSSA bacteremia Bacteremia Bacteremia Right heart failure Steatosis, liver Tricuspid valve stenosis Anasarca HCV (hepatitis C virus) Endocarditis Pulmonary embolism Surgical History History of tricuspid valve replacement with bioprosthetic valve Social History Household Members: Unknown / Unable to assess Household Members Other:: none. homeless Housing: Unknown / Unable to assess Do you presently have visiting nurse or other home services: No Unable to assess alcohol history related to: Unknown Alcohol intake: former Patient Tobacco Use Status: Never used Tobacco Tobacco use type: Cigarette Cigarette Packs Per Day: 1 Cigarettes Per Day: 5 Years Smoked: 10 Second Hand Smoke Exposure: No Substance Use Type: Crack/Cocaine Advance Directives Date on File: 04/16/21 service: No Current occupational status: unemployed Meds Allergies Allergy/AdvReac Type Severity Reaction Status Date / Time No Known Allergies Allergy Verified 09/23/24 02:55 [No Known Allergies*] Active Medications: Current Medications Dextrose (D10) 250 mls @ 750 mls/hr IV Q15M PRN PRN Reason: per Hypoglycemia Standing Ord. Last Admin: 09/23/24 04:29 Dose: 750 mls/hr Home Medications ?Medication ?Instructions ?Recorded ?Confirmed ?Last Taken ?Type gabapentin 100 mg capsule 200 mg PO TID 04/13/23 09/13/24 1 Week Ago History ~09/06/24 hydroxyzine HCl 50 mg tablet 50 mg PO TID PRN Anxiety 03/30/24 09/13/24 1 Week Ago History ~09/06/24 methadone 10 mg/mL oral 115 mg PO DAILY 09/13/24 09/13/24 09/12/24 History concentrate (Methadone Intensol) rivaroxaban 10 mg tablet (Xarelto) 10 mg PO DAILY@1700 09/13/24 09/13/24 Unknown History sertraline 50 mg tablet 50 mg PO DAILY 09/13/24 09/13/24 1 Week Ago History ~09/06/24 trazodone 50 mg tablet 50 mg PO BEDTIME PRN Sleep 09/13/24 09/13/24 1 Week Ago History ~09/06/24 Physical Exam 2 Vital Signs and Narrative: Vital Signs: Last Vital Signs Temp 98.2 F 09/23/24 04:37 Pulse 105 H 09/23/24 04:37 Resp 20 09/23/24 04:37 BP 116/77 09/23/24 04:37 Pulse Ox 95 09/23/24 04:37 O2 Del Method Nasal Cannula 09/23/24 04:37 O2 Flow Rate 2 09/23/24 04:37 BMI result Body Mass Index 24.2 Unable to perform due to patient's agitation. Results Labs 09/23/24 03:31 09/23/24 03:31 Labs: Laboratory Results - last 24 hr 09/23/24 09/23/24 09/23/24 03:30 03:31 05:09 MCV 77.2 L MCH 22.8 L MCHC 29.5 L RDW 17.6 H Plt Count 308 MPV 10.0 Immature Gran % (Auto) 1.2 H Neut % (Auto) 78.1 H Lymph % (Auto) 12.1 L [place] % (Auto) 8.0 Eos % (Auto) 0.4 Baso % (Auto) 0.2 Lymph # (Auto) 2.0 [place] # (Auto) 1.3 H Eos # (Auto) 0.1 Baso # (Auto) 0.0 Abs Immat Gran (auto) 0.20 H Absolute Neuts (auto) 12.6 H Absolute Nucleated RBC 0.030 H Nucleated RBC % (auto) 0.2 PT 33.2 H INR 2.8 H APTT 37.5 H D-Dimer High Sensitivty 2159 Anion Gap 20 Estim Creat Clear Calc 47.4 Estimated GFR 39 POC Glucose 100 Random Glucose 58 L* Lactic Acid 4.4 H* Calcium 9.3 Total Bilirubin 1.5 H AST 152 H ALT 79 H Alkaline Phosphatase 211 H Total Creatine Kinase 1302 H Troponin I High Sens 7.2 B-Natriuretic Peptide 641 H Total Protein 6.8 Albumin 3.3 L Influenza Type A (PCR) NEGATIVE Influenza Type B (PCR) NEGATIVE RSV RNA Qual (PCR) NEGATIVE SARS-CoV-2 RNA (RT-PCR) NEGATIVE Blood Type O Positive Antibody Screen NEGATIVE Imaging Radiologist's Impressions: Impressions Chest X-Ray 09/23/24 04:19 IMPRESSION: Bilateral mid lung field infiltrates consistent with pneumonia. Electronically signed by: Eh Mondragon MD 09/23/2024 04:52 AM [facility] Assessment and Plan (1) LUCERO (acute kidney injury): Status: Acute (2) Pneumonia: Qualifiers: Pneumonia type: aspiration pneumonia Laterality: right Lung location: middle lobe of lung Status: Acute (3) Rhabdomyolysis: Qualifiers: Rhabdomyolysis type: non-traumatic Qualified Code(s): M62.82 - Rhabdomyolysis Status: Acute Plan Norberto Marquez is a 33 years old man with past medical history significant for ongoing polysubstance abuse and endocarditis admitted with: * LUCERO secondary to rhabdomyolysis due to illicit drug use. Gentle IV hydration due to underlying systolic congestive heart failure. Continue to monitor renal function. Avoid nephrotoxic agents. continue to monitor total CK. * Severe sepsis criteria, could be multifactorial: pneumonia, ? bacteremia. Received NS bolus 30 ml/hr in ED (2 L). Continue empiric IV antibiotic therapy with vancomycin and Zosyn. Gentle IV fluids. Blood cultures obtained -will follow results. Recheck lactic acid. * Chest pain/upper abdominal or shortness on breath. Negative troponin. ECG showed no ischemic changes. Concern for pneumonia, aspiration. Continue Zosyn. Check abdominal ultrasound to assess for gallstones. * Worsening anemia anemia Hbg 8.5-->7.7. Admit to hospitalist service. NPO. Start Protonix 40 mg IV b.i.d. ?Using Xarelto. Hold anticoagulation. Continue to monitor H&H. GI consult. * History of PE. Hold Xarelto due to suspected GI bleeding. * HFrEF. Currently compensated. * History of hepatitis C. Treatments as an outpatient. DVT prophylaxis: SCDs only Due to suspected GI bleeding. Code status: Full patient will need hospitalization for at least 2 midnight for severe sepsis treatment with IV fluids and empiric IV antibiotic therapy. he will also need evaluation by Gastroenterology for possible EGD. Quality Stroke Does the patient have a stroke diagnosis?: No VTE Prior VTE?: Yes VTE Risk Level:: Medical - moderate - high VTE Device Contraindication: N/A - Device Ordered VTE Drug Contraindication: Treatment Not Indicated
--- NOTE | 2024-09-23 05:33 | PC.NURSE ---
at bedside, pt agitated, screaming at provider at this time, pt removed tele leads and blood pressure cuff. discharge coordinator at bedside.
[2024-09-23 05:38] LABS: Reflex Lactate? Lactic Acid Added
[2024-09-23] MEDS: Pantoprazole Sodium 40 MG/10 ML VIAL IVPUSH (05:55)
[2024-09-23] MEDS: 0.9 % Sodium Chloride 1,000 ML 75 ML IVCONT (05:56)
[2024-09-23 06:02] LABS: Venous Blood Gas Refer to POC result
--- NOTE | 2024-09-23 06:11 | PC.NURSE ---
pt noted to be asleep at this time, respirations even and unlabored.
[2024-09-23 06:12] LABS: VBG Base Excess -6.8 mmol/L; VBG HCO3 18 mmol/L (22-26); VBG pCO2 36 mmHg; VBG pH 7.31 (7.32-7.43); VBG pO2 59 mmHg
[2024-09-23 06:19] LABS: ~Lactic Acid-LAB USE ONLY 2.5 mmol/L (0.5-2.0)
--- NOTE | 2024-09-23 07:28 | PC.NURSE ---
sleepig soundly. skin PWD. no resp depression. Awaits bed assignment.
[2024-09-23] MEDS: vancomycin HCL 750 MG in 0.9 % Sodium Chloride 250 ML 265 MG IV (07:45)
[2024-09-23] MEDS: 0.9 % Sodium Chloride Flush 3 ML SYRINGE IVFLUSH (07:47)
--- NOTE | 2024-09-23 08:01 | PC.NURSE ---
Easily arousable but falls asleep w/o interventions.
[2024-09-23 08:02] LABS: Reflex Lactate? 2 Y
--- NOTE | 2024-09-23 08:31 | PC.NURSE ---
upset and threatening to leave b/c he isn't allowed to eat anything. OR doesn't have him on shedule today. He awaits GI consult and then possible upper endoscopy. pt is aware of this plan and states if the ydon't push that back then i'm leaving . Hospitalist is aware.
--- NOTE | 2024-09-23 08:32 | PHA.PROG ---
Admission Date/Time: September 23, 2024 05:32 Indication: BACTEREMIA Weight in k.9 kg Adjusted body weight in Kg: [place] body weight in Kg: Obesity Dosing Indication % IBW: Serum Creatinine - Last 168 Hours 09/23/24 03:31 Creatinine 1.96 H Estimated CrCl and GFR - Last 168 Hours 09/23/24 03:31 Estim Creat Clear Calc 47.4 Estimated GFR 39 Vancomycin Loading Dose: 1000 MG + 750 MG Current Vancomycin Dosing Regimen: 1250 MG Q24H Vancomycin Monitoring using AUC goal of 400 - 600 range with trough as surrogate marker: XYN=[id number] TROUGH=16.5 Date and Time for next Vancomycin Level to be drawn: 09/25/24 @0600 Pharmacist Comments on Vancomycin Plan: Vancomycin dosing will take advantage of [employer] as a clinical decision support tool that uses Bayesian modeling to calculate individual patient's pharmacokinetic parameters and forecast the patient's drug concentration time course with the target goal AUC 24 range of 400 - 600 mg/L/hr.
--- NOTE | 2024-09-23 09:13 | PC.NURSE ---
Communication with both hospitalist and GI. All agree patient must remain NPO.
--- NOTE | 2024-09-23 10:43 | P.DS_ITS ---
DS: Providers Provider Date of Service: 09/23/24 Date of admission: 09/23/24 05:32 Date of discharge: 09/23/24 Primary care physician: Sabas Junior MD Consults: 09/23/24 06:15 Consult to Gastroenterology Routine Consulting Provider: Oswald Levine Reason for consultation: ongoing anemia Has provider been notified: No 09/23/24 06:17 Addiction Medicine Routine Consulting Provider: Addiction Covering Reason for consultation: polysubstance abuse Has provider been notified: No DS: Diagnosis Discharge Diagnosis (1) LUCERO (acute kidney injury): Status: Acute (2) Pneumonia: Status: Acute (3) Rhabdomyolysis: Status: Acute DS: Summary Hospital Course Hospital Course: from initial hpi: 33 years old man with past medical history significant for ongoing polysubstance abuse (including heroin, cocaine, crack and marijuana), endocarditis requiring tricuspid valve replacement, HFrEF (EF 40-45%), hepatitis-C and pulmonary embolism presents to the emergency department complaining of shortness on breath. HPI was limited and obtained mostly from the chart reviewas the patient was verbally abusive. he was recently hospitalized September 13 with chest pain, LUCERO due to rhabdomyolysis and acute anemia concerning for GI bleeding. Unfortunately, once again he left against medical advice and refused to undergo recovery from kidney injury. He actually has history of abandoning the hospital against medical advice a multiple occasions. Last time he used drugs was yesterday at 2 pm. EGD was postponed as the patient came back positive for cocaine. Upon questioning the patient about his expectations from the medical team as he continues to leave the hospital without completing treatments and continuing using illegal drugs he said that he expects to continue receiving treatment every time he returns to the hospital despite he is aware that his decisions are interfering with his recovery and brings our efforts back to 0. He became defensive, agitated and verbally abuse. In the ED, he was found to have low O2 sats, 86% and currently requiring 2 liters/minutes supplemental oxygen. He also has low-grade tachycardia. There is no hypotension or fever. blood workup is significant for worsening creatinine and CPK. Troponin is negative. on September 13 he underwent abdomen pelvis CT scan showing small amount of ascites, suspected diffuse gallbladder wall thickening. ECG showed sinus tachycardia with frequent PVCs. ED tx: NS 2 L bolus, vancomycin 1 g IV, Zosyn 3.375 g hospital course: Patient was admitted for acute kidney injury likely multifactorial due to rhabdomyolysis, sepsis, drug use. Also noted to have severe sepsis likely due to pneumonia treated with vancomycin Zosyn. Likely the cause of his chest pain there was no signs ACS. Also noted to have acute on chronic iron deficiency anemia likely due to chronic blood loss. Plan was to continue IV antibiotics and follow up with GI for possible intervention. However, patient decided to leave against medical advice. He was able to demonstrate understanding of his medical condition and the risks of leaving against medical advice including . For history of PE his Xarelto has been held for GI bleed. For chronic systolic CHF with tricuspid stenosis he did not appear volume overloaded. For HCV should follow up outpatient for treatment. For polysubstance dependence opiate replacement therapy was offered. Time Attestation Discharge Coordination Time (in mins): 37 Quality: Safe Use of Opioids Does Pt have an Active Cancer Diagnosis on the Problem List?: No Quality: Stroke Does the patient have a stroke diagnosis?: No Physical Exam Vital Signs: Vital Signs: Last Vital Signs Temp 98.4 F 09/23/24 07:48 Pulse 97 09/23/24 07:48 Resp 16 09/23/24 07:48 BP 106/74 09/23/24 07:48 Pulse Ox 93 09/23/24 07:48 O2 Del Method Nasal Cannula 09/23/24 07:48 O2 Flow Rate 2 09/23/24 07:48 BMI result Body Mass Index 24.2 Alert oriented x3, ill-appearing, frail Lungs diminished DS: Data Data Completed and Pending Completed studies during hospitalization [Text1]: Procedures Detoxification Services for Substance Abuse Treatment (11/18/21) Insertion of Endotracheal Airway into Trachea, Via Natural or Artificial Opening (03/03/23) Insertion of Infusion Device into Left Basilic Vein, Percutaneous Approach (03/16/23) Insertion of Infusion Device into Superior Vena Cava, Percutaneous Approach (03/03/23) Introduction of Vasopressor into Central Vein, Percutaneous Approach (03/03/23) Respiratory Ventilation, Greater than 96 Consecutive Hours (03/03/23) Ultrasonography of Superior Vena Cava, Guidance (03/03/23) Labs on day of discharge: Laboratory Results - last 24 hr 09/23/24 09/23/24 09/23/24 03:30 03:31 05:09 WBC 16.1 H RBC 3.38 L Hgb 7.7 L Hct 26.1 L MCV 77.2 L MCH 22.8 L MCHC 29.5 L RDW 17.6 H Plt Count 308 MPV 10.0 Immature Gran % (Auto) 1.2 H Neut % (Auto) 78.1 H Lymph % (Auto) 12.1 L [place] % (Auto) 8.0 Eos % (Auto) 0.4 Baso % (Auto) 0.2 Lymph # (Auto) 2.0 [place] # (Auto) 1.3 H Eos # (Auto) 0.1 Baso # (Auto) 0.0 Abs Immat Gran (auto) 0.20 H Absolute Neuts (auto) 12.6 H Absolute Nucleated RBC 0.030 H Nucleated RBC % (auto) 0.2 PT 33.2 H INR 2.8 H APTT 37.5 H D-Dimer High Sensitivty 2159 VBG pH VBG pCO2 VBG pO2 VBG HCO3 VBG O2 Saturation VBG Base Excess Sodium 140 Potassium 5.0 D Chloride 110 H Carbon Dioxide 15 L Anion Gap 20 BUN 35 H Creatinine 1.96 H Estim Creat Clear Calc 47.4 Estimated GFR 39 POC Glucose 100 Random Glucose 58 L* Lactic Acid 4.4 H* Lactic Acid F/U @ 2Hr Calcium 9.3 Total Bilirubin 1.5 H AST 152 H ALT 79 H Alkaline Phosphatase 211 H Total Creatine Kinase 1302 H Troponin I High Sens 7.2 B-Natriuretic Peptide 641 H Total Protein 6.8 Albumin 3.3 L Influenza Type A (PCR) NEGATIVE Influenza Type B (PCR) NEGATIVE RSV RNA Qual (PCR) NEGATIVE SARS-CoV-2 RNA (RT-PCR) NEGATIVE Blood Type O Positive Antibody Screen NEGATIVE 09/23/24 09/23/24 05:57 06:03 WBC RBC Hgb Hct MCV MCH MCHC RDW Plt Count MPV Immature Gran % (Auto) Neut % (Auto) Lymph % (Auto) [place] % (Auto) Eos % (Auto) Baso % (Auto) Lymph # (Auto) [place] # (Auto) Eos # (Auto) Baso # (Auto) Abs Immat Gran (auto) Absolute Neuts (auto) Absolute Nucleated RBC Nucleated RBC % (auto) PT INR APTT D-Dimer High Sensitivty VBG pH 7.31 L VBG pCO2 36 VBG pO2 59 VBG HCO3 18 L VBG O2 Saturation Not Reportable VBG Base Excess -6.8 Sodium Potassium Chloride Carbon Dioxide Anion Gap BUN Creatinine Estim Creat Clear Calc Estimated GFR POC Glucose Random Glucose Lactic Acid Lactic Acid F/U @ 2Hr 2.5 H* Calcium Total Bilirubin AST ALT Alkaline Phosphatase Total Creatine Kinase Troponin I High Sens B-Natriuretic Peptide Total Protein Albumin Influenza Type A (PCR) Influenza Type B (PCR) RSV RNA Qual (PCR) SARS-CoV-2 RNA (RT-PCR) Blood Type Antibody Screen Discharge Plan Discharge Anticipated Discharge Date/Time: 09/23/24 10:42 Patient Disposition: Left Against Medical Advice Discharge Diagnosis: lucero, pna Referrals: Name,MD Sabas [Primary Care Provider] - 1 Week Discharge Medications: Continued trazodone 50 mg Tablet 50 mg PO BEDTIME PRN (Reason: Sleep) sertraline 50 mg Tablet 50 mg PO DAILY Xarelto 10 mg tablet 10 mg PO DAILY@1700 methadone [Methadone Intensol] 10 mg/mL Concentrate 115 mg PO DAILY hydroxyzine HCl 50 mg Tablet 50 mg PO TID PRN (Reason: Anxiety) gabapentin 100 mg capsule 200 mg PO TID Discharge Orders: Discharge Order (Routine); Ordered 09/23/24 Ordered By: Gaurav Snowden Stand Alone Forms: Against Medical Advice Print Language: Kiswahili Care Plan Goals: Recovery Health Concerns: Acute kidney injury, anemia, pneumonia Plan of Treatment: Cannot properly treat outpatient Assessment: See above
--- NOTE | 2024-09-23 10:58 | MHC.RECOVRN ---
Met with pt in ED5, along with RN, after pt requesting to conduct self directed discharge. Pt reports he is hungry and upset his food was removed from his room. Pt is aware he is NPO to see GI and for possible EGD. Pt requesting to eat and postpone any procedures, RN informed pt she had contacted providers and that is not possible. Of note, pt was hospitalized last week and was upset about NPO status so EGD was postponed. Ultimately, EGD was further postponed last week due to +UDS and pt did leave AMA. Pt voices frustration that the same postponement can not be done this admission. Pt able to verbalize risks with leaving the hospital. Pt reports he is going to discharge, eat, and then present to [facility]. Pt denies other questions or concerns. Encouraged pt to present to [facility] or return to [facility].
== END 2024-09-23 11:00 | disposition left against medical advice (07) | DRG 720 ==
LOC: HO.ED 05:27 → HO.EDOVER 05:39 → HO.S3 10:27 → HO.EDOVER 10:40
PROVIDERS: Admitting Provider Internal Medicine; Emergency Provider Internal Medicine; PCP Internal Medicine Geriatric Medicine; Visit Provider Internal Medicine
DX: A41.9 Sepsis, unspecified organism (principal); N17.9 Acute kidney failure, unspecified; J18.9 Pneumonia, unspecified organism; M62.82 Rhabdomyolysis; I50.22 Chronic systolic (congestive) heart failure; F11.20 Opioid dependence, uncomplicated; D50.0 Iron deficiency anemia secondary to blood loss (chronic); R65.20 Severe sepsis without septic shock; F19.10 Other psychoactive substance abuse, uncomplicated; Z20.822 Contact with and (suspected) exposure to COVID-19; Z95.2 Presence of prosthetic heart valve; Z86.19 Personal history of other infectious and parasitic diseases; Z59.01 Sheltered homelessness; Z79.01 Long term (current) use of anticoagulants; Z86.711 Personal history of pulmonary embolism; Z79.899 Other long term (current) drug therapy
CPT/HCPCS: 0241U; 36415; 71045; 80053; 82550; 82803; 82947; 83605; 83880; 84484; 85025; 85379; 85610; 85730; 86850; 86900; 86901; 87040; 93005; 99285; J2470; J2543; J3370

== ENCOUNTER → 2024-09-23 02:50 | Outpatient (BNV) | payer MEDICAID, SELFPAY | PROVIDERS: Admitting Provider Internal Medicine; Emergency Provider Internal Medicine; PCP Internal Medicine Geriatric Medicine; Visit Provider Internal Medicine Cardiovascular Disease | DX: R07.9 Chest pain, unspecified (principal); R00.0 Tachycardia, unspecified | CPT/HCPCS: 93010 ==

== ENCOUNTER → 2024-09-23 05:32 | Outpatient (BNV) | payer MEDICAID, SELFPAY | PROVIDERS: Admitting Provider Internal Medicine; Emergency Provider Internal Medicine; Visit Provider Internal Medicine | DX: N17.9 Acute kidney failure, unspecified (principal); J18.9 Pneumonia, unspecified organism; M62.82 Rhabdomyolysis | CPT/HCPCS: 99222; 99499 ==

== ENCOUNTER 2024-10-10 03:54 | Inpatient (IN) | payer MEDICAID, SELFPAY ==
--- NOTE | 2024-10-10 | ECG_ITS ---
Test Reason : CP Blood Pressure : / mmHG Vent. Rate : 094 BPM Atrial Rate : 094 BPM P-R Int : 138 ms QRS Dur : 092 ms QT Int : 378 ms P-R-T Axes : 073 078 018 degrees QTc Int : 472 ms Normal sinus rhythm Incomplete right bundle branch block T wave abnormality, consider anterior ischemia Prolonged QT Abnormal ECG When compared with ECG of 23-SEP-2024 02:50, Premature ventricular complexes are no longer Present T wave inversion now evident in Anterior leads Referred By: Generic ED Physician Electronically Signed By:Pedro Chang
--- NOTE | ~2024-10-10 | CT_ITS ---
EXAMINATION: CT SOFT TISSUE NECK WITH CONTRAST CLINICAL INFORMATION: Right-sided neck pain and swelling. COMPARISON: CT dated April 19, 2020. TECHNIQUE: Following the intravenous administration of 85 mL of Omnipaque 350 intravenous contrast, helical imaging was performed in the axial plane with generation of coronal and sagittal reformatted images. This CT examination was performed using dose optimization techniques as appropriate, variously including the following: *Automated exposure control *Adjustment of mA and/or kV according to patient size (this includes techniques or standardized protocols for targeted exams where dose is matched to indication/reason for exam; i.e. extremities or head) *Use of iterative reconstruction technique DLP: 397 mGy-cm FINDINGS: Skull base, nasopharynx, oropharynx, retropharynx, hypopharynx and larynx demonstrated no gross masses or fluid collections. Focal 5 mm gas-filled diverticulum at the left supraglottic. Applications Development Analyst spaces, parapharyngeal spaces and carotid compartments demonstrated no gross mass or fluid collections. Salivary glands demonstrated normal morphology and enhancement pattern. The vessels are patent. The thyroid gland is not enlarged. There is no gross dominant nodule. Prominent lymph nodes in the submandibular compartment, nonspecific. . Oral cavity, sublingual and submandibular compartments demonstrated no gross masses or fluid collections. Spondylosis at C5-6. Sternal wires. Tympanic cavities and mastoid cells are aerated. S-shaped nasal septum configuration. No air-fluid levels in the paranasal sinuses. No mass or fluid collections in the intraconal or extraconal compartments of the orbits. Linear and patchy pulmonary groundglass, upper lobes. Bilateral apical lung scarring. Electrode leads in the left upper hemithorax. CT/CT soft tissue neck w IV con IMPRESSION: Nonspecific prominent lymph nodes, submandibular compartment bilaterally. No abscess. No mass. Concerning acute on chronic airway disease Electronically signed by: Rito Hernandez MD 10/10/2024 09:16 AM PREETHI
--- NOTE | ~2024-10-10 | CT_ITS ---
EXAMINATION: CT ANGIOGRAM CHEST CLINICAL INFORMATION: Shortness of breath. IV drug abuser COMPARISON: CT angiographic chest dated May 20, 2024. TECHNIQUE: Multiple axial images were obtained through the chest after the administration of 85 mL of Omnipaque 350 intravenous contrast. Extensive vascular post-processing including two-dimensional and three-dimensional reformatted images were created and reviewed on an independent workstation. SmartPrep technique. This CT examination was performed using dose optimization techniques as appropriate, variously including the following: *Automated exposure control *Adjustment of mA and/or kV according to patient size (this includes techniques or standardized protocols for targeted exams where dose is matched to indication/reason for exam; i.e. extremities or head) *Use of iterative reconstruction technique DLP: 307 mGy-cm FINDINGS: Limited by patient's motion artifact. Inadequate smart prepped technique. No gross intraluminal filling defects within the main pulmonary artery or its main branches. The peripheral small subsegmental pulmonary artery branches are not fully evaluated. No aneurysm or dissection, thoracic aorta. Bilateral pulmonary patchy groundglass with the mosaic pattern involving mostly the lower lobe, bilaterally. 5 mm subpleural nodules in the peripheral lower lobes. Bilateral apical lung scarring. No pleural effusion. No pneumothorax. Sternal wires. Electrode leads in the left anterior chest into the cardia. No pericardial effusion. There is an enlarged right atrium and inferior vena cava. No pneumomediastinum. No acute fracture or listhesis in the axial skeleton. CT/CT angio chest PE protocol IMPRESSION: No acute pulmonary artery emboli. No aneurysm or dissection, thoracic aorta. Pulmonary edema in the correct clinical settings. Fleischner guidelines were followed. Electronically signed by: Rito Hernandez MD 10/10/2024 10:01 AM PREETHI GONZALEZ
--- NOTE | ~2024-10-10 | XR_ITS ---
EXAMINATION: XR CHEST CLINICAL INFORMATION: cp COMPARISON: September 23, 2024 TECHNIQUE: 2 views of the chest were obtained. FINDINGS: The cardiomediastinal silhouette is normal. There has been a previous median sternotomy. Pacer leads are again seen in stable positions. There is no focal lung consolidation or pleural effusions. The bony structures and soft tissues are unremarkable. XR/XR chest 2V IMPRESSION: No active cardiopulmonary disease. Electronically signed by: Eh Mondragon MD 10/10/2024 04:38 AM PREETHI
[2024-10-10 04:03] VITALS: BP 129/80; PULSE 96; RESP 20; TEMP 36.6; O2SAT 96; BMI 22.0
[2024-10-10 04:36] LABS: Basophils Absolute Auto 0.1 X10*3/uL (0.0-0.2); Eosinophils Absolute Auto 0.2 X10*3/uL (0.0-0.4); Eosinophils Percent Auto 3.4 % (0-4); Hematocrit 29.7 % (42.0-52.0); Hemoglobin 8.9 g/dl (14.0-18.0); Imm Gran Abs Auto 0.03 X10*3/uL (0.00-0.03); Imm Gran Pct Auto 0.4 % (0.0-0.4); Lymphocytes Absolute Auto 2.1 X10*3/uL (1.2-4.9); Lymphocytes Percent Auto 30.6 % (20-40); MANUAL DIFF FLAG NO; Mean Corpuscular Hemoglobin 22.9 pg (27.0-33.0); Mean Corpuscular Volume 76.5 fL (80.0-98.0); Mean Platelet Volume 9.5 fL (9.4-12.4); Monocytes Absolute Auto 0.9 X10*3/uL (0.1-1.2); Monocytes Percent Auto 12.7 % (2-11); Neutrophils Absolute Auto 3.5 x10*3/uL (2.0-8.3); Neutrophils Percent Auto 51.9 % (45-73); Platelet Count 287 X10*3/uL (160-400); Red Blood Count 3.88 X10*6/uL (4.60-5.80); Red Cell Distribution Width 20.3 % (11.0-16.0); White Blood Count 6.8 X10*3/uL (4.8-10.8)
[2024-10-10 05:04] LABS: Alanine Aminotransferase 22 U/L (0-40); Albumin Level 3.4 g/dL (3.5-5.0); Alkaline Phosphatase 221 U/L (39-117); Anion Gap 15 (12-20); Aspartate Amino Transferase 40 U/L (5-37); Bilirubin Total 0.9 mg/dL (0.0-1.0); Blood Urea Nitrogen 18 mg/dL (9-16); Calcium 8.6 mg/dL (8.4-10.2); Carbon Dioxide 18 mmol/L (22-29); Chloride 112 mmol/L (96-108); Creatinine Clr Calc Pharmacy 99.9; Estimated Glomerular Filt Rate > 60; Glucose Random 92 mg/dL (60-115); Potassium 3.8 mmol/L (3.3-5.1); Sodium 141 mmol/L (135-145)
[2024-10-10 05:12] LABS: Troponin-I High Sensitivity 5.1 ng/L (<3.5-35.0)
[2024-10-10 06:25] VITALS: BP 121/74; PULSE 97; RESP 18; TEMP 36.7; O2SAT 95
--- NOTE | 2024-10-10 06:34 | ED.GENADULT ---
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 He tells me he has been on the streets since then. He c/o R sided neck pain post attempts at IVDA for 2 days and then started to feel short of breath with chest pain on inspiration. He is very groggy and hard to understand he appears under the influence. He is not compliant with his medications. He states he hasn't been able to get into the [place] [facility] complaint: multi complaints Onset (ago): day(s) (2) Location: neck and chest Radiation: non-radiation Severity: moderate Quality: aching Pain Consistency: constant Relieving factors: rest Exacerbating factors: movement Associated symptoms: chest pain, cough, loss of appetite and shortness of breath Treatments prior to arrival: none Related Data Home Medications ?Medication ?Instructions ?Recorded ?Confirmed gabapentin 100 mg capsule 200 mg PO TID 04/13/23 09/13/24 hydroxyzine HCl 50 mg tablet 50 mg PO TID PRN Anxiety 03/30/24 09/13/24 methadone 10 mg/mL oral 115 mg PO DAILY 09/13/24 09/13/24 concentrate (Methadone Intensol) rivaroxaban 10 mg tablet (Xarelto) 10 mg PO DAILY@1700 09/13/24 09/13/24 sertraline 50 mg tablet 50 mg PO DAILY 09/13/24 09/13/24 trazodone 50 mg tablet 50 mg PO BEDTIME PRN Sleep 09/13/24 09/13/24 albuterol sulfate 90 mcg/actuation 1 puff inhalation QID PRN wheezing 10/10/24 aerosol inhaler (Ventolin HFA) ferrous sulfate 325 mg (65 mg 325 mg PO DAILY 10/10/24 iron) tablet,delayed release magnesium oxide 400 mg PO DAILY 10/10/24 midodrine 2.5 mg tablet 2.5 mg PO TID 10/10/24 silver sulfadiazine 1 % topical 1 appl topical Q OTHER DAY 10/10/24 cream thiamine HCl (vitamin B1) 100 mg 100 mg PO DAILY 10/10/24 tablet (Vitamin B-1) Allergies Allergy/AdvReac Type Severity Reaction Status Date / Time No Known Allergies Allergy Verified 10/10/24 04:06 [No Known Allergies*] Review of Systems Review of Systems: ROS unable to be obtained due to poor historian and drug use [facility] Past Medical History Attestation statement: The following information was validated with the patient. Source: old records reviewed Medical History Rhabdomyolysis Anemia LUCERO (acute kidney injury) Polysubstance abuse Opioid use disorder Opioid use disorder, severe, dependence Substance abuse MSSA bacteremia Bacteremia Bacteremia Right heart failure Steatosis, liver Tricuspid valve stenosis Anasarca HCV (hepatitis C virus) Endocarditis Pulmonary embolism Surgical History History of tricuspid valve replacement with bioprosthetic valve Social History Social History Household Members: Other Household Members Other:: [facility] Housing: Other Do you presently have visiting nurse or other home services: No Unable to assess alcohol history related to: Unknown Alcohol intake: former Patient Tobacco Use Status: Never used Tobacco Tobacco use type: Cigarette Cigarette Packs Per Day: 1 Cigarettes Per Day: 5 Years Smoked: 10 Second Hand Smoke Exposure: No Substance Use Type: Crack/Cocaine Advance Directives: Yes Advance Directives on File: Yes Advance Directives Date on File: 04/16/21 service: No Current occupational status: unemployed Physical Exam ED Vital Signs: Vital Signs - 24 hr 10/10/24 04:03 10/10/24 06:25 10/10/24 09:09 Temperature 97.8 F 98.0 F 97.2 F Pulse Rate 96 97 82 Respiratory Rate 20 18 15 Blood Pressure 129/80 121/74 111/74 Pulse Oximetry 96 95 95 Oxygen Delivery Method Room Air Room Air BMI result Body Mass Index 22.0 Appearance: Somnolent but wakes to voice and tactile stimuli, speech is slurred. Oriented X3. No acute distress. Eyes: Pupils pinpoint ENT: Pharynx normal. Neck: Normal inspection. Neck supple. CVS: Normal heart rate and rhythm. Pulses normal. Respiratory: No respiratory distress. Breath sounds normal. Abdomen: Soft and nontender. Skin: Skin warm and dry. Normal skin color. Normal skin turgor. Extremities: trace ankle pitting lower extremity edema. both arms spotty sites of IVDA, legs have chronic skin thickening but no active signs of infection Neuro: Oriented X 3. No motor deficit. No sensory deficit. Medications Administered Generic Name Dose Route Start Last Admin Trade Name Freq PRN Reason Stop Dose Admin Piperacillin Sod/Tazobactam 50 mls @ 100 mls/hr 10/10/24 14:00 10/10/24 15:07 Sod 3.375 gm/ Sodium Chloride IV Infused Q6H CRISTINA Infusion Discontinued Medications Generic Name Dose Route Start Last Admin Trade Name Freq PRN Reason Stop Dose Admin Ceftriaxone Sodium 2 gm 10/10/24 06:19 10/10/24 06:42 Ceftriaxone Sodium 2 Gm Vial IVPUSH 10/10/24 06:20 2 gm ONCE ONE Administration Vancomycin HCl 1,000 mg/ 535 mls @ 267.5 mls/hr 10/10/24 08:48 10/10/24 09:04 Vancomycin HCl 750 mg/ Sodium IV 10/10/24 10:47 Not Given Chloride ONCE ONE Vancomycin HCl 1,500 mg/ 500 mls @ 333.333 mls/hr 10/10/24 08:51 10/10/24 11:14 Sodium Chloride IV 10/10/24 10:20 Infused ONCE ONE Infusion Iohexol 100 ml 10/10/24 08:06 10/10/24 08:06 Iohexol 350 Mg/Ml 100 Ml Infus..Btl IV 10/10/24 08:07 85 ml ONCE ONE Administration Medical Decision Making Medical Decision Making MDM Narrative: 33 yo male with PMH of opiate use disorder on methadone and continues to use cocaine/fentanyl just used DISTILLER, cardiomyopathy, prolonged QT, PE on xarelto, asthma, 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 He reports neck pain from prior IVDA I have ordered labs, CT scan but I see no outward infection, CTA PE given hx of VTE and recent pneumonia he is not always compliant with xarelto. Empiric ceftriaxone and given history possible admit for endocarditis if work up in ED is negative Differential Diagnosis Differential Diagnoses: The differential diagnosis associated with the presentation includes endocarditis, pneumonia, VTE, poor social supports, drug use Admission/Observation Consideration of admission/observation: Escalation of care including admission/observation considered will admit cannot rule out endocarditis given his hx Consult Healthcare Provider Management of the patient was discussed with: Hospitalist (will admit) Lab Data MDM Lab Attestation statement: I reviewed the patient's lab results. 10/10/24 04:31 10/10/24 04:31 Labs: Lab Results 10/10/24 10/10/24 10/10/24 Range/Units 04:31 04:32 06:36 WBC 6.8 (4.8-10.8) X10*3/uL RBC 3.88 L (4.60-5.80) X10*6/uL Hgb 8.9 L (14.0-18.0) g/dl Hct 29.7 L (42.0-52.0) % MCV 76.5 L (80.0-98.0) fL MCH 22.9 L (27.0-33.0) pg MCHC 30.0 L (31.0-36.0) g/dl RDW 20.3 H (11.0-16.0) % Plt Count 287 (160-400) X10*3/uL MPV 9.5 (9.4-12.4) fL Immature Gran % (Auto) 0.4 (0.0-0.4) % Neut % (Auto) 51.9 (45-73) % Lymph % (Auto) 30.6 (20-40) % [place] % (Auto) 12.7 H (2-11) % Eos % (Auto) 3.4 (0-4) % Baso % (Auto) 1.0 (0-2) % Lymph # (Auto) 2.1 (1.2-4.9) X10*3/uL [place] # (Auto) 0.9 (0.1-1.2) X10*3/uL Eos # (Auto) 0.2 (0.0-0.4) X10*3/uL Baso # (Auto) 0.1 (0.0-0.2) X10*3/uL Abs Immat Gran (auto) 0.03 (0.00-0.03) X10*3/uL Absolute Neuts (auto) 3.5 (2.0-8.3) x10*3/uL Absolute Nucleated RBC 0.000 (0.0-0.012) X10*3/uL Nucleated RBC % (auto) 0.0 (0.0-0.2) /100WBC Sodium 141 (135-145) mmol/L Potassium 3.8 D (3.3-5.1) mmol/L Chloride 112 H (96-108) mmol/L Carbon Dioxide 18 L (22-29) mmol/L Anion Gap 15 (12-20) BUN 18 H (9-16) mg/dL Creatinine 0.96 (0.5-1.4) mg/dL Estim Creat Clear Calc 99.9 Estimated GFR > 60 Random Glucose 92 (60-115) mg/dL Lactic Acid 0.7 (0.5-2.0) mmol/L Calcium 8.6 D (8.4-10.2) mg/dL Total Bilirubin 0.9 (0.0-1.0) mg/dL AST 40 H (5-37) U/L ALT 22 (0-40) U/L Alkaline Phosphatase 221 H (39-117) U/L Troponin I High Sens 5.1 (<3.5-35.0) ng/L B-Natriuretic Peptide 306 H (<100) pg/mL Total Protein 7.0 (6.5-8.0) g/dL Albumin 3.4 L (3.5-5.0) g/dL Independent Interpretation I performed an independent interpretation of an: EKG, Plain X-Ray and CT Scan (no pneumonia or VTE) Interpretation: Rate: 94 Rhythm: NSR Lagrange: normal Normal P waves. Normal TYREL. Normal QRS complex. ST T wave : no SCOTT, inverted t waves V1-V5 qTC: 472 prior studies: no acute ischemia The study has been interpreted contemporaneously by me. . Radiology Impression Discussion of test interpretation with radiology: I have reviewed the radiologist's reading. External Record Review External record reviewed: Inpatient record and Outpatient record Discharge Plan Discharge Clinical Impression: Drug abuse, IV, Chest pain Patient Disposition: Admitted As Inpatient
[2024-10-10] MEDS: cefTRIAXone sodium 2 GM VIAL IVPUSH (06:42)
--- NOTE | 2024-10-10 06:59 | PC.NURSE ---
BC and lactic sent to lab, IV #20placed in L-forearm. Pt given IVP abx.
[2024-10-10 07:05] LABS: Lactic Acid 0.7 mmol/L (0.5-2.0)
[2024-10-10 07:20] LABS: B Type Natriuretic Peptide 306 pg/mL (<100)
[2024-10-10] MEDS: iohexoL 350 MG/ML 100 ML INFUS..BTL IV (08:06)
[2024-10-10 09:09] VITALS: BP 111/74; PULSE 82; RESP 15; TEMP 36.2; O2SAT 95
[2024-10-10] MEDS: vancomycin HCL 1,500 MG in 0.9 % Sodium Chloride 500 ML 333.33 MG IV (09:13)
--- NOTE | 2024-10-10 11:53 | PM.IMHP ---
History of Present Illness Date of Service: 10/10/24 Attending physician on admission: Joel Mariee Chief Complaint: SOB Pt is a 33-year-old male with a PMH significant for?continuing polysubstance use disorder with IVDU, endocarditis s/p tricuspid valve replacement, cardiomyopathy hepatitic C, hx of DVT and PE non-compliant with Xarelto who presents to the ED with a complains of shortness of breath and chest discomfort associated with breathing and cough. Patient appears actively intoxicated at time of interview and exam. Somnolent and arousable but immediately falls back asleep before fully answering questions. HPI is thus obtained from chart and provider review. ?Patient apparently left [facility] 4 days ago after being admitted for 1 week for treatment of pneumonia. Patient apparently did not fill his prescription for antibiotics, and has not been taking any of his home medications including Xarelto. Since discharge patient has been ?on streets? and resumed IVDU. Patient apparently has not been able to get into a retirement. Patient currently has generalized complains of ?not feeling well?. Complaining ED physician of right-sided neck pain. In the ED pt had elevated HR up to 97, but vitals otherwise stable and WNL. Satting at 96% on RA. Labs were grossly unremarkable and around baseline for patient. Stable microcytic anemia of 8.9/29.7, around baseline. Mildly elevated AST of 40 and alk-phos of 221, around baseline. BNP chronically elevated at 306. Troponin 5.1. No significant electrolyte abnormalities. Renal function WNL. CXR showed no active cardiopulmonary disease. CT of soft tissue neck showed nonspecific prominent submandibular lymph nodes without abscess or mass, concerning for acute on chronic airway disease. Chest CTA negative for acute pulmonary artery emboli, aneurysm, or dissection. Did show possible pulmonary edema. EKG showed normal sinus rhythm with T-wave inversions in anterior leads. Pt was treated with ceftriaxone and vancomycin. Pt will be admitted to the hospital treatment and further evaluation of possible bacteremia secondary to IVDU and noncompliance with antibiotics. Review of Systems Review of Systems: Yes Unobtainable due to mental status [facility] Medical History Rhabdomyolysis Anemia LUCERO (acute kidney injury) Polysubstance abuse Opioid use disorder Opioid use disorder, severe, dependence Substance abuse MSSA bacteremia Bacteremia Bacteremia Right heart failure Steatosis, liver Tricuspid valve stenosis Anasarca HCV (hepatitis C virus) Endocarditis Pulmonary embolism Surgical History History of tricuspid valve replacement with bioprosthetic valve Social History Household Members: Other Household Members Other:: retirement Housing: Other Do you presently have visiting nurse or other home services: No Unable to assess alcohol history related to: Unknown Alcohol intake: former Patient Tobacco Use Status: Never used Tobacco Tobacco use type: Cigarette Cigarette Packs Per Day: 1 Cigarettes Per Day: 5 Years Smoked: 10 Second Hand Smoke Exposure: No Substance Use Type: Crack/Cocaine Advance Directives: Yes Advance Directives on File: Yes Advance Directives Date on File: 04/16/21 service: No Current occupational status: unemployed Meds Allergies Allergy/AdvReac Type Severity Reaction Status Date / Time No Known Allergies Allergy Verified 10/10/24 04:06 [No Known Allergies*] Home Medications ?Medication ?Instructions ?Recorded ?Confirmed ?Last Taken ?Type gabapentin 100 mg capsule 200 mg PO TID 04/13/23 09/13/24 1 Week Ago History ~09/06/24 hydroxyzine HCl 50 mg tablet 50 mg PO TID PRN Anxiety 03/30/24 09/13/24 1 Week Ago History ~09/06/24 methadone 10 mg/mL oral 115 mg PO DAILY 09/13/24 09/13/24 09/12/24 History concentrate (Methadone Intensol) rivaroxaban 10 mg tablet (Xarelto) 10 mg PO DAILY@1700 09/13/24 09/13/24 Unknown History sertraline 50 mg tablet 50 mg PO DAILY 09/13/24 09/13/24 1 Week Ago History ~09/06/24 trazodone 50 mg tablet 50 mg PO BEDTIME PRN Sleep 09/13/24 09/13/24 1 Week Ago History ~09/06/24 albuterol sulfate 90 mcg/actuation 1 puff inhalation QID PRN wheezing 10/10/24 Unknown History aerosol inhaler (Ventolin HFA) ferrous sulfate 325 mg (65 mg 325 mg PO DAILY 10/10/24 Unknown History iron) tablet,delayed release magnesium oxide 400 mg PO DAILY 10/10/24 Unknown History midodrine 2.5 mg tablet 2.5 mg PO TID 10/10/24 Unknown History silver sulfadiazine 1 % topical 1 appl topical Q OTHER DAY 10/10/24 Unknown History cream thiamine HCl (vitamin B1) 100 mg 100 mg PO DAILY 10/10/24 Unknown History tablet (Vitamin B-1) Physical Exam Vital Signs and Narrative: Vital Signs: Last Vital Signs Temp 97.2 F 10/10/24 09:09 Pulse 82 10/10/24 09:09 Resp 15 10/10/24 09:09 BP 111/74 10/10/24 09:09 Pulse Ox 95 10/10/24 09:09 O2 Del Method Room Air 10/10/24 06:25 BMI result Body Mass Index 22.0 General: Somnolent but arousable. Falls immediately back asleep. Appears actively intoxicated. Unkempt. In no acute distress Resp: CTA bilaterally CVS: S1, S2, RRR GI: +BS, NT, no distention Skin: Warm, dry Neuro: Cranial nerves II-XII grossly intact bilaterally. Motor grossly intact bilaterally Extremities: No significant pitting edema. Track tan in arms. Legs with chronic healed lesions likely secondary to xylazine. No signs of acute cellulitis Results Labs 10/10/24 04:31 10/10/24 04:31 Labs: Laboratory Results - last 24 hr 10/10/24 10/10/24 10/10/24 04:31 04:32 06:36 MCV 76.5 L MCH 22.9 L MCHC 30.0 L RDW 20.3 H Plt Count 287 MPV 9.5 Immature Gran % (Auto) 0.4 Neut % (Auto) 51.9 Lymph % (Auto) 30.6 [place] % (Auto) 12.7 H Eos % (Auto) 3.4 Baso % (Auto) 1.0 Lymph # (Auto) 2.1 [place] # (Auto) 0.9 Eos # (Auto) 0.2 Baso # (Auto) 0.1 Abs Immat Gran (auto) 0.03 Absolute Neuts (auto) 3.5 Absolute Nucleated RBC 0.000 Nucleated RBC % (auto) 0.0 Anion Gap 15 Estim Creat Clear Calc 99.9 Estimated GFR > 60 Random Glucose 92 Lactic Acid 0.7 Calcium 8.6 D Total Bilirubin 0.9 AST 40 H ALT 22 Alkaline Phosphatase 221 H Troponin I High Sens 5.1 B-Natriuretic Peptide 306 H Total Protein 7.0 Albumin 3.4 L Imaging Radiologist's Impressions: Impressions Chest X-Ray 10/10/24 04:15 IMPRESSION: No active cardiopulmonary disease. Electronically signed by: Eh Mondragon MD 10/10/2024 04:38 AM EST RP Soft Tissue Neck CT 10/10/24 06:19 IMPRESSION: Nonspecific prominent lymph nodes, submandibular compartment bilaterally. No abscess. No mass. Concerning acute on chronic airway disease Electronically signed by: Rito Hernandez MD 10/10/2024 09:16 AM EST RP Chest CTA 10/10/24 07:48 IMPRESSION: No acute pulmonary artery emboli. No aneurysm or dissection, thoracic aorta. Pulmonary edema in the correct clinical settings. Fleischner guidelines were followed. Electronically signed by: Rito Hernandez MD 10/10/2024 10:01 AM EST RP Assessment and Plan (1) Shortness of breath: Status: Acute Plan Pt is a 33-year-old male with a PMH significant for?continuing polysubstance use disorder with IVDU, endocarditis s/p tricuspid valve replacement, cardiomyopathy hepatitic C, hx of DVT and PE non-compliant with Xarelto who presents to the ED with a complains of shortness of breath and chest discomfort associated with breathing and cough. Pt will be admitted to the hospital treatment and further evaluation of possible bacteremia secondary to IVDU and noncompliance with antibiotics. ?Bacteremia Pt has been feeling unwell since leaving [facility] 4 days after 1-week stay for pneumonia Has been non-compliant with abx in the community, resumed IVDU CTA of chest negative, CXR negative Hx of endocarditis secondary to IVDU No sepsis: HR>90, but no fever, tachypnea, leukocytosis; lactic acid WNL Will empirically treat with vanc and Zosyn, started 10/10/2024 Follow blood cultures If blood cultures positive Will get echocardiogram to evaluate for possible endocarditis Hx of DVT/PE Has been non-compliant with Xarelto; CTA negative for PE Continue Xarelto Polysubstance use disorder Continue methadone Addiction medicine consult Mood disorder Continue sertraline Full Code Attending:?Dr. Mariee DVT Prophylaxis: On Xarelto Given patient's history of endocarditis, noncompliance with medications in the community, and high-risk with continued IVDU, patient will be admitted to the hospital for at least a 2 night stay for empiric treatment for bacteremia while awaiting blood cultures. Quality Stroke Does the patient have a stroke diagnosis?: No VTE Prior VTE?: Yes VTE Risk Level:: Medical - moderate - high VTE Device Contraindication: Treatment Not Indicated VTE Drug Contraindication: N/A - Med Ordered
--- NOTE | 2024-10-10 12:41 | PC.NURSE ---
patient has been resting quietly throught out the morning, resp even and unlabored. patient does wake up to verbal stimuli but patient tired. patient medicated per MAR
--- NOTE | 2024-10-10 13:33 | PC.NURSE ---
patient moved into [address], patient began to start swearing and berating staff. patient threatening staff. security called for deescalation. patient targeting this RN and tech
[2024-10-10] MEDS: Piperacillin Sodium/Tazobactam 3.375 GM in 0.9 % Sodium Chloride 50 ML IV (13:47)
--- NOTE | 2024-10-10 14:00 | PHA.PROG ---
Admission Date/Time: October 10, 2024 12:59 Indication: bacteremia Weight in k.771 kg Adjusted body weight in K.3 Serum Creatinine - Last 168 Hours 10/10/24 04:31 Creatinine 0.96 Estimated CrCl and GFR - Last 168 Hours 10/10/24 04:31 Estim Creat Clear Calc 99.9 Estimated GFR > 60 Vancomycin Loading Dose:1500 Current Vancomycin Dosing Regimen: 1000 Q12h Vancomycin Monitoring using AUC goal of 400 - 600 range with trough as surrogate marker: 513 Date and Time for next Vancomycin Level to be drawn: 10/11 @1900 Pharmacist Comments on Vancomycin Plan: Vancomycin dosing will take advantage of [employer] as a clinical decision support tool that uses Bayesian modeling to calculate individual patient's pharmacokinetic parameters and forecast the patient's drug concentration time course with the target goal AUC 24 range of 400 - 600 mg/L/hr.
--- NOTE | 2024-10-10 16:45 | PC.NURSE ---
patient has been calm and cooperative, resting quietly. making needs known appropriately. patient awakens to verbal stimuli. resp even and unlabored
[2024-10-10 16:48] VITALS: BP 98/59; PULSE 77; RESP 18; TEMP 36.9; O2SAT 97
--- NOTE | 2024-10-10 17:39 | PC.NURSE ---
patient woke up and asked for phone to call alf he lives at, patient given phone started yelling on phone. patient called this RN over to bedside and stated take this fucking IV out i'm leaving this RN removed IV, patient than proceeded to get dressed and ambulated off of unit with steady gait and security. patient understood he was leaving AMA, stated he needs to go to alf or they will make his mom picker operator his stuff or get rid of it. patient admitted physician made aware.
--- NOTE | 2024-10-10 18:17 | PM.DS ---
DS: Providers Provider Date of Service: 10/10/24 Date of admission: 10/10/24 12:59 Date of discharge: 10/10/24 Primary care physician: Sabas Junior MD DS: Diagnosis Discharge Diagnosis (1) Shortness of breath: Status: Acute DS: Summary Hospital Course Hospital Course: From the admission HPI: Pt is a 33-year-old male with a PMH significant for?continuing polysubstance use disorder with IVDU, endocarditis s/p tricuspid valve replacement, cardiomyopathy hepatitic C, hx of DVT and PE non-compliant with Xarelto who presents to the ED with a complains of shortness of breath and chest discomfort associated with breathing and cough. Patient appears actively intoxicated at time of interview and exam. Somnolent and arousable but immediately falls back asleep before fully answering questions. HPI is thus obtained from chart and provider review. ?Patient apparently left [facility] [place] ago after being admitted for 1 week for treatment of pneumonia. Patient apparently did not fill his prescription for antibiotics, and has not been taking any of his home medications including Xarelto. Since discharge patient has been ?on streets? and resumed IVDU. Patient apparently has not been able to get into a skilled nursing. Patient currently has generalized complains of ?not feeling well?. Complaining ED physician of right-sided neck pain. In the ED pt had elevated HR up to 97, but vitals otherwise stable and WNL. Satting at 96% on RA. Labs were grossly unremarkable and around baseline for patient. Stable microcytic anemia of 8.9/29.7, around baseline. Mildly elevated AST of 40 and alk-phos of 221, around baseline. BNP chronically elevated at 306. Troponin 5.1. No significant electrolyte abnormalities. Renal function WNL. CXR showed no active cardiopulmonary disease. CT of soft tissue neck showed nonspecific prominent submandibular lymph nodes without abscess or mass, concerning for acute on chronic airway disease. Chest CTA negative for acute pulmonary artery emboli, aneurysm, or dissection. Did show possible pulmonary edema. EKG showed normal sinus rhythm with T-wave inversions in anterior leads. Pt was treated with ceftriaxone and vancomycin. Pt will be admitted to the hospital treatment and further evaluation of possible bacteremia secondary to IVDU and noncompliance with antibiotics. Hospital course: Patient elected to leave the hospital AMA under security guidance after waking up and becoming irritable and antagonistic toward staff. Stated he needed to go to his skilled nursing before his spot was given up. Patient has a long history of leaving AMA and medication noncompliance. Patient was being treated empirically for possible bacteremia, but imaging today did not show any acute pneumonia. 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 No indication at this time to prescribed additional outpatient antibiotics. Will follow up blood cultures and if possible attempt to contact patient for possible readmission. Time Attestation Discharge Coordination Time (in mins): 11 Quality: Safe Use of Opioids Does Pt have an Active Cancer Diagnosis on the Problem List?: No Quality: Stroke Does the patient have a stroke diagnosis?: No Physical Exam Vital Signs: Vital Signs: Last Vital Signs Temp 98.4 F 10/10/24 16:48 Pulse 77 10/10/24 16:48 Resp 18 10/10/24 16:48 BP 98/59 L 10/10/24 16:48 Pulse Ox 97 10/10/24 16:48 O2 Del Method Room Air 10/10/24 16:48 BMI result Body Mass Index 22.0 Patient elected to leave AMA before this provider could see him DS: Data Data Completed and Pending Completed studies during hospitalization [Text1]: Procedures Detoxification Services for Substance Abuse Treatment (11/18/21) Insertion of Endotracheal Airway into Trachea, Via Natural or Artificial Opening (03/03/23) Insertion of Infusion Device into Left Basilic Vein, Percutaneous Approach (03/16/23) Insertion of Infusion Device into Superior Vena Cava, Percutaneous Approach (03/03/23) Introduction of Vasopressor into Central Vein, Percutaneous Approach (03/03/23) Respiratory Ventilation, Greater than 96 Consecutive Hours (03/03/23) Ultrasonography of Superior Vena Cava, Guidance (03/03/23) Labs on day of discharge: Laboratory Results - last 24 hr 10/10/24 10/10/24 10/10/24 04:31 04:32 06:36 WBC 6.8 RBC 3.88 L Hgb 8.9 L Hct 29.7 L MCV 76.5 L MCH 22.9 L MCHC 30.0 L RDW 20.3 H Plt Count 287 MPV 9.5 Immature Gran % (Auto) 0.4 Neut % (Auto) 51.9 Lymph % (Auto) 30.6 [facility] % (Auto) 12.7 H Eos % (Auto) 3.4 Baso % (Auto) 1.0 Lymph # (Auto) 2.1 [facility] # (Auto) 0.9 Eos # (Auto) 0.2 Baso # (Auto) 0.1 Abs Immat Gran (auto) 0.03 Absolute Neuts (auto) 3.5 Absolute Nucleated RBC 0.000 Nucleated RBC % (auto) 0.0 Sodium 141 Potassium 3.8 D Chloride 112 H Carbon Dioxide 18 L Anion Gap 15 BUN 18 H Creatinine 0.96 Estim Creat Clear Calc 99.9 Estimated GFR > 60 Random Glucose 92 Lactic Acid 0.7 Calcium 8.6 D Total Bilirubin 0.9 AST 40 H ALT 22 Alkaline Phosphatase 221 H Troponin I High Sens 5.1 B-Natriuretic Peptide 306 H Total Protein 7.0 Albumin 3.4 L Discharge Plan Discharge Patient Disposition: Left Against Medical Advice Discharge Diagnosis: SOB, noncompliance with outpatient abx Referrals: Name,MD Sabas [Primary Care Provider] - 1 Week Discharge Medications: Continued trazodone 50 mg Tablet 50 mg PO BEDTIME PRN (Reason: Sleep) sertraline 50 mg Tablet 50 mg PO DAILY Xarelto 10 mg tablet 10 mg PO DAILY@1700 methadone [Methadone Intensol] 10 mg/mL Concentrate 115 mg PO DAILY hydroxyzine HCl 50 mg Tablet 50 mg PO TID PRN (Reason: Anxiety) silver sulfadiazine 1 % cream 1 appl topical Q OTHER DAY thiamine HCl (vitamin B1) [Vitamin B-1] 100 mg Tablet 100 mg PO DAILY midodrine 2.5 mg tablet 2.5 mg PO TID albuterol sulfate [Ventolin HFA] 90 mcg/actuation HFA aerosol inhaler 1 puff INHALATION QID PRN (Reason: wheezing) ferrous sulfate 325 mg (65 mg iron) tablet,delayed release (DR/EC) 325 mg PO DAILY magnesium oxide 400 mg magnesium Tablet 400 mg PO DAILY gabapentin 100 mg capsule 200 mg PO TID Discharge Orders: Discharge Order (Routine); Ordered 10/10/24 Ordered By: Jenelle Meza Print Language: Uzbek Care Plan Goals: Pt left AMA before this provider could speak to him. Health Concerns: Pt left AMA before this provider could speak to him. Plan of Treatment: Pt left AMA before this provider could speak to him. Assessment: Pt left AMA before this provider could speak to him. Discharge Date/Time: 10/10/24 18:46
== END 2024-10-10 18:46 | disposition left against medical advice (07) | DRG 145 ==
LOC: HO.ED 06:03 → HO.EDOVER 13:09
PROVIDERS: Admitting Provider Student in an Organized Health Care Education/Training Program; Emergency Provider Emergency Medicine; PCP Internal Medicine Geriatric Medicine; Visit Provider Family Medicine
DX: R06.02 Shortness of breath (principal); R78.81 Bacteremia; F11.20 Opioid dependence, uncomplicated; Z59.01 Sheltered homelessness; Z95.2 Presence of prosthetic heart valve; Z86.711 Personal history of pulmonary embolism; Z86.718 Personal history of other venous thrombosis and embolism; Z91.148 Patient's other noncompliance with medication regimen for other reason; Z79.899 Other long term (current) drug therapy
CPT/HCPCS: 36415; 70491; 71046; 71275; 80053; 83605; 83880; 84484; 85025; 87040; 93005; 99285; J0696; J2543; J3371; Q9967

== ENCOUNTER → 2024-10-10 04:05 | Outpatient (BNV) | payer MEDICAID, SELFPAY | PROVIDERS: Admitting Provider Student in an Organized Health Care Education/Training Program; Emergency Provider Emergency Medicine; PCP Internal Medicine Geriatric Medicine; Visit Provider Internal Medicine Cardiovascular Disease | DX: R07.9 Chest pain, unspecified (principal); I45.19 Other right bundle-branch block; R94.31 Abnormal electrocardiogram [ECG] [EKG] | CPT/HCPCS: 93010 ==

== ENCOUNTER → 2024-10-10 06:19 | Outpatient (BNV) | payer MEDICAID, SELFPAY | PROVIDERS: Emergency Provider Emergency Medicine; PCP Internal Medicine Geriatric Medicine; Visit Provider Radiology Diagnostic Radiology | DX: J81.0 Acute pulmonary edema (principal); R91.8 Other nonspecific abnormal finding of lung field; R59.0 Localized enlarged lymph nodes; J44.1 Chronic obstructive pulmonary disease with (acute) exacerbation | CPT/HCPCS: 70491; 71275 ==

== ENCOUNTER 2024-10-13 17:03 | Emergency (ER) | payer MEDICAID, SELFPAY ==
[2024-10-13 17:08] VITALS: BP 158/82; PULSE 105; O2SAT 88
[2024-10-13 17:19] VITALS: BP 148/90; PULSE 109; RESP 18; TEMP 36.3; O2SAT 90; BMI 27.4
[2024-10-13 17:24] VITALS: O2SAT 94
--- NOTE | 2024-10-13 17:45 | PC.NURSE ---
pt changed over by security. belongings placed in decon. vss and up to date aside from being slightly hypoxic - pt placed on 2L via NC w/ good effect - SPO2 @ 94%. no sob/wob noted. respirations even/unlabored. UA/labs obtained/sent to lab. plan of care ongoing.
[2024-10-13 17:48] LABS: MANUAL DIFF FLAG NO
[2024-10-13 17:54] LABS: Basophils Absolute Auto 0.1 X10*3/uL (0.0-0.2); Basophils Percent Auto 0.7 % (0-2); Eosinophils Absolute Auto 0.1 X10*3/uL (0.0-0.4); Eosinophils Percent Auto 0.5 % (0-4); Hematocrit 29.7 % (42.0-52.0); Hemoglobin 8.8 g/dl (14.0-18.0); Imm Gran Abs Auto 0.07 X10*3/uL (0.00-0.03); Imm Gran Pct Auto 0.8 % (0.0-0.4); Lymphocytes Absolute Auto 1.4 X10*3/uL (1.2-4.9); Lymphocytes Percent Auto 15.5 % (20-40); Mean Corpuscular HGB Conc 29.6 g/dl (31.0-36.0); Mean Corpuscular Hemoglobin 22.3 pg (27.0-33.0); Mean Corpuscular Volume 75.2 fL (80.0-98.0); Mean Platelet Volume 9.4 fL (9.4-12.4); Monocytes Absolute Auto 1.2 X10*3/uL (0.1-1.2); Monocytes Percent Auto 12.9 % (2-11); Neutrophils Absolute Auto 6.4 x10*3/uL (2.0-8.3); Neutrophils Percent Auto 69.6 % (45-73); Platelet Count 411 X10*3/uL (160-400); Red Blood Count 3.95 X10*6/uL (4.60-5.80); Red Cell Distribution Width 19.7 % (11.0-16.0); White Blood Count 9.2 X10*3/uL (4.8-10.8)
[2024-10-13 18:00] LABS: Amphetamine Screen Urine Not Detected (Not Detect); Appearance Urine Clear; Barbiturates, Urine Not Detected (Not Detect); Benzodiazepines Screen Urine Not Detected (Not Detect); Buprenorphine Scr Not Detected (Not Detect); Cannabinoid Screen Urine Not Detected (Not Detect); Cocaine Screen Urine POSITIVE (Not Detect); Color Urine Yellow; Fentanyl, urine POSITIVE (Not Detect); Glucose Urine UA Negative (Negative); Leukocyte Esterase Urine Negative (Negative); Methadone Screen, Urine Positive (Not Detect); Nitrite Urine Negative (Negative); Opiate Screen Urine POSITIVE (Not Detect); Oxycodone Screen Urine Not Detected (Not Detect); PH 5.5 (5.0-9.0); Phencyclidine Screen Urine Not Detected (Not Detect); Urine Blood Negative (Negative); Urine Ketones Negative (Negative); Urine Protein Trace mg/dL (Neg-Trace)
--- NOTE | 2024-10-13 18:02 | ED.GENADULT ---
HPI - General Adult General Chief complaint: ETOH/Substance Use Stated complaint: FEELS UNWELL Time Seen by Provider: 10/13/24 17:16 Source: patient, EMS and RN notes reviewed Mode of arrival: EMS Limitations: no limitations History of Present Illness ED Provider: Bob HPI narrative: Patient is a 33-year-old male with history of polysubstance abuse, hepatitis C, prior PE, tricuspid stenosis, right heart failure, bacteremia, anemia, rhabdomyolysis presenting to the emergency department with complaint of feeling unwell after smoking an unknown substance. Denies chest pain, shortness of breath, palpitations. Complains of mild epigastric pain. States he is interested in help with detox. Denies suicidal or homicidal ideation. MD complaint: abdominal pain Onset (ago): hour(s) Treatments prior to arrival: none Related Data Home Medications ?Medication ?Instructions ?Recorded ?Confirmed gabapentin 100 mg capsule 200 mg PO TID 04/13/23 09/13/24 hydroxyzine HCl 50 mg tablet 50 mg PO TID PRN Anxiety 03/30/24 09/13/24 methadone 10 mg/mL oral 115 mg PO DAILY 09/13/24 09/13/24 concentrate (Methadone Intensol) rivaroxaban 10 mg tablet (Xarelto) 10 mg PO DAILY@1700 09/13/24 09/13/24 sertraline 50 mg tablet 50 mg PO DAILY 09/13/24 09/13/24 trazodone 50 mg tablet 50 mg PO BEDTIME PRN Sleep 09/13/24 09/13/24 albuterol sulfate 90 mcg/actuation 1 puff inhalation QID PRN wheezing 10/10/24 aerosol inhaler (Ventolin HFA) ferrous sulfate 325 mg (65 mg 325 mg PO DAILY 10/10/24 iron) tablet,delayed release magnesium oxide 400 mg PO DAILY 10/10/24 midodrine 2.5 mg tablet 2.5 mg PO TID 10/10/24 silver sulfadiazine 1 % topical 1 appl topical Q OTHER DAY 10/10/24 cream thiamine HCl (vitamin B1) 100 mg 100 mg PO DAILY 10/10/24 tablet (Vitamin B-1) Allergies Allergy/AdvReac Type Severity Reaction Status Date / Time No Known Allergies Allergy Verified 10/13/24 17:20 [No Known Allergies*] Review of Systems Review of Systems: As per HPI Yes all other systems are reviewed and are negative Constitutional: Constitutional: Reports as per HPI Neurologic: Reports confusion Psychiatric: Psychiatric: Reports confusion [facility] Past Medical History Medical History Rhabdomyolysis Anemia LUCERO (acute kidney injury) Polysubstance abuse Opioid use disorder Opioid use disorder, severe, dependence Substance abuse MSSA bacteremia Bacteremia Bacteremia Right heart failure Steatosis, liver Tricuspid valve stenosis Anasarca HCV (hepatitis C virus) Endocarditis Pulmonary embolism Surgical History History of tricuspid valve replacement with bioprosthetic valve Social History Social History Household Members: Other Household Members Other:: retirement Housing: Other Do you presently have visiting nurse or other home services: No Unable to assess alcohol history related to: Unknown Alcohol intake: current Alcohol intake frequency: holidays/special occasions only Patient Tobacco Use Status: Never used Tobacco Tobacco use type: Cigarette Cigarette Packs Per Day: 1 Cigarettes Per Day: 5 Years Smoked: 10 Smoked in Last 30 Days: Yes Second Hand Smoke Exposure: No Use of substances other than those prescribed or required for medical reasons: Yes Substance Use Type: Crack/Cocaine, Marijuana and Opiates Advance Directives: Yes Advance Directives on File: Yes Advance Directives Date on File: 04/16/21 service: No Current occupational status: unemployed Physical Exam ED Vital Signs: Vital Signs - 24 hr 10/13/24 17:19 10/13/24 17:24 10/13/24 19:24 Temperature 97.4 F 99.4 F Pulse Rate 109 H 95 Respiratory Rate 18 18 Blood Pressure 148/90 H 129/78 Pulse Oximetry 90 L 94 97 Oxygen Delivery Method Room Air Nasal Cannula Room Air Oxygen Flow Rate 2 BMI result Body Mass Index 27.4 Vital signs have been reviewed and appear to be correct. Blood pressure normal. Heart rate normal. Respiratory rate normal. Temperature normal. Oxygen saturation normal. Const General: cooperative, no acute distress, confusion and intoxicated appearing Orientation/consciousness: oriented to person, oriented to place, oriented to time, patient oriented x3 and confusion Limitations: no limitations HENMT Head: Yes normocephalic and Yes atraumatic Ears: external ears normal General nose exam: Normal external nose present Face and sinus: Yes face symmetric Mouth: oropharynx normal and moist mucous membranes Throat: Yes uvula midline Eyes Pupils: Equal, round and reactive pupils present Neck Neck: Yes normal visual inspection and Yes supple Resp Effort & Inspection: normal respiratory effort and able to speak in complete sentences Auscultation: clear to auscultation bilaterally Cardio Rate: regular rate Rhythm: regular rhythm Heart sounds: S1 normal heart sound present and S2 normal heart sound present GI Palpation (GI): Soft to palpation and nontender Auscultation: normoactive bowel sounds General: Yes no CVA tenderness Back/Spine/Pelvis Back: no CVA tenderness Skin General skin exam: elasticity normal and turgor normal Neuro General: oriented to person, oriented to place, oriented to time, patient oriented x3, moves all extremities, no focal motor deficits, CN's II-XI intact bilaterally and confusion Cranial nerves: Yes Equal, round and reactive pupils present Cognition (Neuro): normal cognition Extrem General: Yes full ROM, Yes no pedal edema and Yes no calf tenderness Psych Mental Status: mental status grossly normal Medical Decision Making Medical Decision Making [facility] Narrative: Patient is a 33-year-old male with history of polysubstance abuse, hepatitis C, prior PE, tricuspid stenosis, right heart failure, bacteremia, anemia, rhabdomyolysis presenting to the emergency department with complaint of feeling unwell after smoking an unknown substance. On exam patient is awake, A+Ox3, VS WNL, afebrile, normal neurological exam without focal deficits, physical exam findings as above. Given reported symptoms and physical exam findings, initial differential includes but is not limited to drug or alcohol intoxication, electrolyte abnormality, cardiac dysrhythmia, rhabdo. Recent CT chest on 10/10/24 demonstrated no evidence of PE. Labs notable for chronic anemia, elevated BUN with normal creatinine, mildly elevated CK, negative ethanol. Urine drug screen positive for opiates, methadone, fentanyl, and cocaine. Will place patient on physician observation for CARE team evaluation re: detox. Differential Diagnosis Differential Diagnoses: The differential diagnosis associated with the presentation includes As per [facility] Admission/Observation Consideration of admission/observation: Escalation of care including admission/observation considered Consult Healthcare Provider Management of the patient was discussed with: Behavioral Health Provider Lab Data [facility] Lab Attestation statement: I reviewed the patient's lab results. As per [facility] 10/13/24 17:41 10/13/24 17:41 Labs: Lab Results 10/13/24 Range/Units 17:41 WBC 9.2 (4.8-10.8) X10*3/uL RBC 3.95 L (4.60-5.80) X10*6/uL Hgb 8.8 L (14.0-18.0) g/dl Hct 29.7 L (42.0-52.0) % MCV 75.2 L (80.0-98.0) fL MCH 22.3 L (27.0-33.0) pg MCHC 29.6 L (31.0-36.0) g/dl RDW 19.7 H (11.0-16.0) % Plt Count 411 H D (160-400) X10*3/uL MPV 9.4 (9.4-12.4) fL Immature Gran % (Auto) 0.8 H (0.0-0.4) % Neut % (Auto) 69.6 (45-73) % Lymph % (Auto) 15.5 L (20-40) % [place] % (Auto) 12.9 H (2-11) % Eos % (Auto) 0.5 (0-4) % Baso % (Auto) 0.7 (0-2) % Lymph # (Auto) 1.4 (1.2-4.9) X10*3/uL [place] # (Auto) 1.2 (0.1-1.2) X10*3/uL Eos # (Auto) 0.1 (0.0-0.4) X10*3/uL Baso # (Auto) 0.1 (0.0-0.2) X10*3/uL Abs Immat Gran (auto) 0.07 H (0.00-0.03) X10*3/uL Absolute Neuts (auto) 6.4 (2.0-8.3) x10*3/uL Absolute Nucleated RBC 0.000 (0.0-0.012) X10*3/uL Nucleated RBC % (auto) 0.0 (0.0-0.2) /100WBC Sodium 134 L (135-145) mmol/L Potassium 4.2 (3.3-5.1) mmol/L Chloride 106 (96-108) mmol/L Carbon Dioxide 19 L (22-29) mmol/L Anion Gap 13 (12-20) BUN 27 H (9-16) mg/dL Creatinine 1.06 (0.5-1.4) mg/dL Estim Creat Clear Calc 94.1 Estimated GFR > 60 Random Glucose 67 (60-115) mg/dL Calcium 8.6 (8.4-10.2) mg/dL Total Bilirubin 1.2 H (0.0-1.0) mg/dL AST 56 H (5-37) U/L ALT 22 (0-40) U/L Alkaline Phosphatase 200 H (39-117) U/L Total Creatine Kinase 393 H (38-174) U/L Total Protein 6.9 (6.5-8.0) g/dL Albumin 3.4 L (3.5-5.0) g/dL Urine Color Yellow Urine Appearance Clear Urine pH 5.5 (5.0-9.0) Ur Specific [place] 1.020 (1.005-1.025) Urine Protein Trace (Neg-Trace) mg/dL Urine Glucose (UA) Negative (Negative) mg/dL Urine Ketones Negative (Negative) mg/dL Urine Blood Negative (Negative) Urine Nitrite Negative (Negative) Ur Leukocyte Esterase Negative (Negative) Urine RBC 0-2 (0-2) /HPF Urine WBC 0-5 (0-5) /HPF Ur Squamous Epith Cells 0-2 (0-2) /HPF Urine Bacteria None Seen (None Seen) Hyaline Casts 0-2 (0-2) /LPF Urine Opiates Screen POSITIVE H (Not Detect) Ur Buprenorphine Scrn Not Detected (Not Detect) ng/mL Ur Oxycodone Screen Not Detected (Not Detect) ng/mL Urine Methadone Screen Positive H (Not Detect) ng/mL Urine Fentanyl Screen POSITIVE H (Not Detect) Ur Barbiturates Screen Not Detected (Not Detect) Ur Phencyclidine Scrn Not Detected (Not Detect) Ur Amphetamines Screen Not Detected (Not Detect) U Benzodiazepines Scrn Not Detected (Not Detect) Urine Cocaine Screen POSITIVE H (Not Detect) U Marijuana (THC) Screen Not Detected (Not Detect) Ethyl Alcohol < 10 mg/dL Independent Interpretation I performed an independent interpretation of an: EKG (normal sinus rhythm, rate 98bpm, normal MA interval, T wave inversions in V2-V5 unchanged from prior) External Record Review External record reviewed: Inpatient record, Office record and Outpatient record Discharge Plan Discharge Clinical Impression: Drug intoxication Patient Disposition: Still a Patient Prescriptions: No Action trazodone 50 mg Tablet 50 mg PO BEDTIME PRN (Reason: Sleep) sertraline 50 mg Tablet 50 mg PO DAILY Xarelto 10 mg tablet 10 mg PO DAILY@1700 methadone [Methadone Intensol] 10 mg/mL Concentrate 115 mg PO DAILY hydroxyzine HCl 50 mg Tablet 50 mg PO TID PRN (Reason: Anxiety) silver sulfadiazine 1 % cream 1 appl topical Q OTHER DAY thiamine HCl (vitamin B1) [Vitamin B-1] 100 mg Tablet 100 mg PO DAILY midodrine 2.5 mg tablet 2.5 mg PO TID albuterol sulfate [Ventolin HFA] 90 mcg/actuation HFA aerosol inhaler 1 puff INHALATION QID PRN (Reason: wheezing) ferrous sulfate 325 mg (65 mg iron) tablet,delayed release (DR/EC) 325 mg PO DAILY magnesium oxide 400 mg magnesium Tablet 400 mg PO DAILY gabapentin 100 mg capsule 200 mg PO TID Print Language: Citizen Of [place]
[2024-10-13 18:03] LABS: Bacteria Urine None Seen (None Seen); Ethanol < 10 mg/dL; Hyaline Casts Urine 0-2 /LPF (0-2); RBC Urine 0-2 /HPF (0-2); Squamous Epithelial Cell Urine 0-2 /HPF (0-2); WBC Urine 0-5 /HPF (0-5)
--- NOTE | 2024-10-13 18:03 | ECG_ITS ---
Test Reason : OVERDOSE Blood Pressure : / mmHG Vent. Rate : 098 BPM Atrial Rate : 098 BPM P-R Int : 136 ms QRS Dur : 094 ms QT Int : 372 ms P-R-T Axes : 078 086 037 degrees QTc Int : 474 ms Normal sinus rhythm Incomplete right bundle branch block T wave abnormality, consider anterior ischemia Prolonged QT Abnormal ECG When compared with ECG of 10-OCT-2024 04:05, No significant change was found Referred By: Tasneem Rojas Electronically Signed By:ANGÉLICA VILLANUEVA MD
[2024-10-13 18:04] LABS: Alanine Aminotransferase 22 U/L (0-40); Albumin Level 3.4 g/dL (3.5-5.0); Alkaline Phosphatase 200 U/L (39-117); Anion Gap 13 (12-20); Aspartate Amino Transferase 56 U/L (5-37); Bilirubin Total 1.2 mg/dL (0.0-1.0); Blood Urea Nitrogen 27 mg/dL (9-16); Calcium 8.6 mg/dL (8.4-10.2); Carbon Dioxide 19 mmol/L (22-29); Chloride 106 mmol/L (96-108); Creatinine Clr Calc Pharmacy 94.1; Estimated Glomerular Filt Rate > 60; Glucose Random 67 mg/dL (60-115); Potassium 4.2 mmol/L (3.3-5.1); Sodium 134 mmol/L (135-145); Total Protein 6.9 g/dL (6.5-8.0)
[2024-10-13 19:24] VITALS: BP 129/78; PULSE 95; RESP 18; TEMP 37.4; O2SAT 97
--- NOTE | 2024-10-13 22:50 | MHC.EDTECH ---
Patient was complaining of being cold. Patient also needed to use the bathroom. Patient shown where the bathroom was and given a warm blanket.
[2024-10-14] VITALS: BP 109/80; PULSE 89; RESP 18; TEMP 36.9; O2SAT 95
[2024-10-14 06:54] VITALS: BP 105/64; PULSE 87; RESP 16; O2SAT 97
[2024-10-14 11:10] VITALS: BP 102/64; PULSE 84; RESP 18; TEMP 36.2; O2SAT 95
--- NOTE | 2024-10-14 11:32 | MHC.RECOVSUP ---
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 Current substance use reported by patient: Heroin, Crack & Coke? Type?Amount:?1 bundle of dope nasally, cocaine was undetermined Currently on ANNE or MOUD Yes: 115mgs of Methadone, last dose was 2 days ago per self-reporting. Plan:? Patient declined ATS bed search (I asked multiple times to confirm). He did say he just got kicked out of his program and he has no where to go, and does not seem to have a plan.
[2024-10-14 14:20] VITALS: BP 0/0; PULSE 84; RESP 18; TEMP 36.2; O2SAT 96
--- NOTE | 2024-10-14 14:44 | PHA.MEDREC ---
Pharmacy Consult ? Medication Reconciliation Pharmacy has completed the medication reconciliation. Spoke to patient to confirm medication list. Patient confirmed he is now taking xarelto 20 mg daily, he is not taking gabapentin, midodrine, sertraline nor trazodone. Last dose of medications was 3 days ago.
== END 2024-10-14 14:21 | disposition home or self-care (01) ==
PROVIDERS: Registered Nurse Emergency; Emergency Provider Emergency Medicine
DX: F19.120 Other psychoactive substance abuse with intoxication, uncomplicated (principal); R10.13 Epigastric pain; B19.20 Unspecified viral hepatitis C without hepatic coma; I50.22 Chronic systolic (congestive) heart failure; F11.20 Opioid dependence, uncomplicated; F17.210 Nicotine dependence, cigarettes, uncomplicated; Z95.4 Presence of other heart-valve replacement; Z86.711 Personal history of pulmonary embolism; Z79.01 Long term (current) use of anticoagulants; Z79.899 Other long term (current) drug therapy
CPT/HCPCS: 36415; 80053; 80307; 81001; 82550; 85025; 93005; 99285

== ENCOUNTER → 2024-10-13 18:03 | Outpatient (BNV) | payer MEDICAID, SELFPAY | PROVIDERS: Emergency Provider Emergency Medicine; Visit Provider Internal Medicine Cardiovascular Disease | DX: I45.19 Other right bundle-branch block (principal); R94.31 Abnormal electrocardiogram [ECG] [EKG] | CPT/HCPCS: 93010 ==

== ENCOUNTER 2024-10-15 07:49 | Emergency (ER) | payer MEDICAID, SELFPAY ==
[2024-10-15 07:52] VITALS: BP 138/94; PULSE 101; O2SAT 98
[2024-10-15 08:02] VITALS: BP 128/84; PULSE 101; RESP 18; TEMP 36.6; O2SAT 94; BMI 22.7
--- NOTE | 2024-10-15 08:34 | PC.NURSE ---
patient arrived with left lower leg wrapped in cloth. towel placed around cloth and pad placed under leg. noticed to be bleeding through both. provider made aware and will be in to see patient.
--- NOTE | 2024-10-15 09:06 | ED_ITS ---
HPI - General Adult General Chief complaint: Skin/Abscess/Foreign Body Stated complaint: REOPENED VERICOSE VEIN WHILE PULLING PANTS UP Time Seen by Provider: 10/15/24 08:35 Source: patient and EMS Mode of arrival: EMS Limitations: no limitations History of Present Illness ED Provider: DR. Araiza HPI narrative: 33-year-old male PMH of hepatitis-C, polysubstance dependence, history of endocarditis with tricuspid valve replacement, CHF with reduced ejection fraction, PE, varicose vein patient presented today with bleeding from a varicose vein on the left lower extremity, patient was trying to put pressure on the bleeding side without. Had previous similar episode in the past require stitching varicose vein, patient was seen by a vascular surgeon 3 weeks ago and recommended to treat conservatively. Related Data Home Medications ?Medication ?Instructions ?Recorded ?Confirmed hydroxyzine HCl 50 mg tablet 50 mg PO TID PRN Anxiety 03/30/24 10/14/24 methadone 10 mg/mL oral 115 mg PO DAILY 09/13/24 09/13/24 concentrate (Methadone Intensol) albuterol sulfate 90 mcg/actuation 1 puff inhalation QID PRN wheezing 10/10/24 10/14/24 aerosol inhaler (Ventolin HFA) ferrous sulfate 325 mg (65 mg 325 mg PO DAILY 10/10/24 10/14/24 iron) tablet,delayed release magnesium oxide 400 mg PO DAILY 10/10/24 10/14/24 silver sulfadiazine 1 % topical 1 appl topical Q OTHER DAY 10/10/24 10/14/24 cream thiamine HCl (vitamin B1) 100 mg 100 mg PO DAILY 10/10/24 10/14/24 tablet (Vitamin B-1) rivaroxaban 20 mg tablet (Xarelto) 20 mg PO DAILY@1700 10/14/24 10/14/24 Allergies Allergy/AdvReac Type Severity Reaction Status Date / Time No Known Allergies Allergy Verified 10/15/24 08:03 [No Known Allergies*] Review of Systems 2 Review of Systems: All other systems are reviewed and are negative Constitutional: Reports as per HPI and Reports no additional constitutional complaints Eyes: Reports as per HPI and Reports no additional eye complaints Reports system reviewed and no additional complaints, except as documented Cardiovascular: Reports as per HPI and Reports no additional cardiovascular complaints Respiratory: Reports as per HPI and Reports no additional respiratory complaints Gastrointestinal: Reports as per HPI and Reports no additional gastrointestinal complaints Genitourinary: Reports no additional female genitourinary complaints Musculoskeletal: Reports no additional musculoskeletal complaints Skin/Breast: Reports system reviewed and no additional complaints, except as docu Psychiatric: Reports no additional psychiatric complaints Endocrine: Reports no additional endocrine complaints Hematologic/Lymphatic: Reports no additional hematologic/lymphatic complaints Allergic/Immunologic: Reports no additional allergic/immunologic complaints Reports system reviewed and no additional complaints, except as documented and Reports Abnormal speech present [facility] Past Medical History Medical History Rhabdomyolysis Anemia LUCERO (acute kidney injury) Polysubstance abuse Opioid use disorder Opioid use disorder, severe, dependence Substance abuse MSSA bacteremia Bacteremia Bacteremia Right heart failure Steatosis, liver Tricuspid valve stenosis Anasarca HCV (hepatitis C virus) Endocarditis Pulmonary embolism Surgical History History of tricuspid valve replacement with bioprosthetic valve Social History Social History Household Members: Other Household Members Other:: [facility] Housing: Other Do you presently have visiting nurse or other home services: No Unable to assess alcohol history related to: Unknown Alcohol intake: current Alcohol intake frequency: holidays/special occasions only Patient Tobacco Use Status: Never used Tobacco Tobacco use type: Cigarette Cigarette Packs Per Day: 1 Cigarettes Per Day: 5 Years Smoked: 10 Smoked in Last 30 Days: No Second Hand Smoke Exposure: No Substance Use Type: Crack/Cocaine, Marijuana and Opiates Advance Directives: Yes Advance Directives on File: Yes Advance Directives Date on File: 04/16/21 service: No Current occupational status: unemployed Physical Exam ED Vital Signs: Vital Signs - 24 hr 10/15/24 08:02 10/15/24 10:22 Temperature 98 F 97.6 F Pulse Rate 101 H 104 H Respiratory Rate 18 18 Blood Pressure 128/84 112/72 Pulse Oximetry 94 95 Oxygen Delivery Method Room Air Room Air BMI result Body Mass Index 22.7 Vital signs have been reviewed and appear to be correct. Blood pressure elevated. Heart rate normal. Respiratory rate normal. Temperature normal. Oxygen saturation normal. Appearance: Alert. Oriented X3. No acute distress. Head: Normal external exam. Normocephalic. Atraumatic. No Soria signs noted. No raccoon eyes noted Eyes: PERRLA. EOMI. Conjunctiva and sclera normal. Eyelids normal. ENT: TM's Normal. Pharynx normal. Uvula midline. Moist mucous membranes. No trismus noted. No drooling noted. No muffled voice noted. Neck: Normal inspection. Neck supple. FROM. No adenopathy. Thyroid Normal. No meningeal signs. No neck mass noted. CVS: Normal heart rate and rhythm. Heart sound normal. No murmurs noted. Pulses normal throughout. Respiratory: No respiratory distress. Painless inspiration. Breath sounds normal. No wheezes/rales/rhonchi noted. Chest nontender. No accessory muscle usage noted or decreased air movement noted. Abdomen: Soft and nontender. Bowel sounds normal in all 4 quadrants. No distention noted. No organomegaly noted. No visible injury noted. Back: No CVA tenderness. Full range of motion noted. Skin: Skin warm and dry. Normal skin color. Normal skin turgor. No rashes/lesions/lacerations noted. Extremities: Varicose vein on the left lower extremities, high pressure bleeding from a varicose vein on medial aspect of the left lower leg bleeding is not stopping by applying direct pressure or keep the patient in Trendelenburg position. The bleeding only stopped after applying 2 suture on the bleeding varicose vein. Neuro: Oriented X 3. Cranial nerve exam: II-XII are grossly intact No motor deficit. No sensory deficit. Reflexes normal. Course Reevaluation(s) Reevaluation #1: 33-year-old male history of varicose vein came in with a bleeding from the varicose vein that was only successful way to stop the bleed is to apply 2 suture to the varicose vein. Patient was instructed to follow-up with Dr. Cardona and reconsider surgical intervention. Patient is anemic H&H is 7.4/24.8 patient with chronic anemia, but no chest pain, no shortness of breath patient would like to be discharged to catch his methadone clinic and get his dose for today. Patient takes methadone 115 mg and cleaning will be closed we will administer 1 time in the emergency department. Time: 10:08 Medications Administered Discontinued Medications Generic Name Dose Route Start Last Admin Trade Name Freq PRN Reason Stop Dose Admin Acetaminophen 975 mg 10/15/24 09:16 10/15/24 09:37 Acetaminophen 325 Mg Tablet PO 10/15/24 09:17 Not Given ONCE ONE Medical Decision Making Differential Diagnosis Differential Diagnoses: The differential diagnosis associated with the presentation includes (Severe anemia, varicose vein bleeding.) Admission/Observation Consideration of admission/observation: Escalation of care including admission/observation considered Lab Data 10/15/24 09:26 Labs: Lab Results 10/15/24 Range/Units 09:26 WBC 8.9 (4.8-10.8) X10*3/uL RBC 3.35 L (4.60-5.80) X10*6/uL Hgb 7.4 L (14.0-18.0) g/dl Hct 24.8 L (42.0-52.0) % MCV 74.0 L (80.0-98.0) fL MCH 22.1 L (27.0-33.0) pg MCHC 29.8 L (31.0-36.0) g/dl RDW 19.7 H (11.0-16.0) % Plt Count 412 H (160-400) X10*3/uL MPV 9.1 L (9.4-12.4) fL Immature Gran % (Auto) 0.6 H (0.0-0.4) % Neut % (Auto) 55.4 (45-73) % Lymph % (Auto) 25.3 (20-40) % [place] % (Auto) 15.9 H (2-11) % Eos % (Auto) 2.5 (0-4) % Baso % (Auto) 0.3 (0-2) % Lymph # (Auto) 2.2 (1.2-4.9) X10*3/uL [place] # (Auto) 1.4 H (0.1-1.2) X10*3/uL Eos # (Auto) 0.2 (0.0-0.4) X10*3/uL Baso # (Auto) 0.0 (0.0-0.2) X10*3/uL Abs Immat Gran (auto) 0.05 H (0.00-0.03) X10*3/uL Absolute Neuts (auto) 4.9 (2.0-8.3) x10*3/uL Absolute Nucleated RBC 0.000 (0.0-0.012) X10*3/uL Nucleated RBC % (auto) 0.0 (0.0-0.2) /100WBC Discharge Plan Discharge Clinical Impression: Anemia, Bleeding from varicose vein Patient Disposition: Home, Self-Care Instructions: Anemia (ED), Venous Insufficiency (DC) Prescriptions: No Action methadone [Methadone Intensol] 10 mg/mL Concentrate 115 mg PO DAILY hydroxyzine HCl 50 mg Tablet 50 mg PO TID PRN (Reason: Anxiety) silver sulfadiazine 1 % cream 1 appl topical Q OTHER DAY thiamine HCl (vitamin B1) [Vitamin B-1] 100 mg Tablet 100 mg PO DAILY albuterol sulfate [Ventolin HFA] 90 mcg/actuation HFA aerosol inhaler 1 puff INHALATION QID PRN (Reason: wheezing) ferrous sulfate 325 mg (65 mg iron) tablet,delayed release (DR/EC) 325 mg PO DAILY magnesium oxide 400 mg magnesium Tablet 400 mg PO DAILY Xarelto 20 mg tablet 20 mg PO DAILY@1700 Referrals: [facility] [Primary Care Provider] - Print Language: Beninese
[2024-10-15 09:30] LABS: MANUAL DIFF FLAG NO
[2024-10-15 09:56] LABS: Basophils Percent Auto 0.3 % (0-2); Eosinophils Absolute Auto 0.2 X10*3/uL (0.0-0.4); Eosinophils Percent Auto 2.5 % (0-4); Hematocrit 24.8 % (42.0-52.0); Hemoglobin 7.4 g/dl (14.0-18.0); Imm Gran Abs Auto 0.05 X10*3/uL (0.00-0.03); Imm Gran Pct Auto 0.6 % (0.0-0.4); Lymphocytes Absolute Auto 2.2 X10*3/uL (1.2-4.9); Lymphocytes Percent Auto 25.3 % (20-40); Mean Corpuscular HGB Conc 29.8 g/dl (31.0-36.0); Mean Corpuscular Hemoglobin 22.1 pg (27.0-33.0); Mean Platelet Volume 9.1 fL (9.4-12.4); Monocytes Absolute Auto 1.4 X10*3/uL (0.1-1.2); Monocytes Percent Auto 15.9 % (2-11); Neutrophils Absolute Auto 4.9 x10*3/uL (2.0-8.3); Neutrophils Percent Auto 55.4 % (45-73); Platelet Count 412 X10*3/uL (160-400); Red Blood Count 3.35 X10*6/uL (4.60-5.80); Red Cell Distribution Width 19.7 % (11.0-16.0); White Blood Count 8.9 X10*3/uL (4.8-10.8)
[2024-10-15 10:22] VITALS: BP 112/72; PULSE 104; RESP 18; TEMP 36.4; O2SAT 95
--- NOTE | 2024-10-15 10:46 | HE.PHANOTE ---
RE METHADONE VERIFICATION LAST DOSE 115 MG GIVEN 10/13/24 @N
[2024-10-15] MEDS: methADONE HCl 20 MG/2 ML ORAL.CONC 115 MG PO (11:00)
[2024-10-15 11:10] VITALS: BP 112/72; PULSE 104; RESP 18; TEMP 36.4; O2SAT 95
== END 2024-10-15 11:12 | disposition home or self-care (01) ==
PROVIDERS: Emergency Provider Emergency Medicine
DX: D64.9 Anemia, unspecified (principal); I83.892 Varicose veins of left lower extremity with other complications; I11.0 Hypertensive heart disease with heart failure; I50.22 Chronic systolic (congestive) heart failure; B19.20 Unspecified viral hepatitis C without hepatic coma; F11.20 Opioid dependence, uncomplicated; F19.10 Other psychoactive substance abuse, uncomplicated; Z86.711 Personal history of pulmonary embolism; Z95.4 Presence of other heart-valve replacement; Z79.01 Long term (current) use of anticoagulants; Z79.899 Other long term (current) drug therapy
CPT/HCPCS: 36415; 85025; 99284

== ENCOUNTER 2024-10-18 12:45 | Emergency (ER) | payer MEDICAID, SELFPAY ==
--- NOTE | ~2024-10-18 | XR_ITS ---
CLINICAL HISTORY: ?pneumonia Single view of the chest. COMPARISON: XR chest dated 09/23/24 at 04:15 EST FINDINGS: Status post sternotomy. Borderline cardiomegaly. No consolidation. Interval resolution of previously seen bilateral midlung consolidation. No pleural effusion or pneumothorax. No fracture identified. IMPRESSION: 1. No consolidation. This document has been electronically signed by: Primo Lucero MD on 10/18/2024 17:59:18
[2024-10-18 12:56] VITALS: BP 128/84; PULSE 92; O2SAT 98; BMI 26.9
--- NOTE | 2024-10-18 13:21 | ED.GENADULT ---
HPI - General Adult General Chief complaint: ETOH/Substance Use Stated complaint: L ANKLE WOUND,WANTS DETOX FROM DR OFFICE PER EMS Time Seen by Provider: 10/18/24 13:03 Source: patient and EMS Mode of arrival: EMS History of Present Illness HPI narrative: This is a 33 years old patient well known to this emergency department with a history of IVDA, bacteremia/pneumonia and left lower extremity varicose vein, presented to the ED because of recurrent bleeding from the varicose vein in the left lower extremity was seen here for the same Sep 21 and October 15. Onset (ago): hour(s) (2) Location: lower extremity (left) Severity: mild Pain Consistency: constant Relieving factors: none Exacerbating factors: none Related Data Home Medications ?Medication ?Instructions ?Recorded ?Confirmed hydroxyzine HCl 50 mg tablet 50 mg PO TID PRN Anxiety 03/30/24 10/14/24 methadone 10 mg/mL oral 115 mg PO DAILY 09/13/24 10/15/24 concentrate (Methadone Intensol) albuterol sulfate 90 mcg/actuation 1 puff inhalation QID PRN wheezing 10/10/24 10/14/24 aerosol inhaler (Ventolin HFA) ferrous sulfate 325 mg (65 mg 325 mg PO DAILY 10/10/24 10/14/24 iron) tablet,delayed release magnesium oxide 400 mg PO DAILY 10/10/24 10/14/24 silver sulfadiazine 1 % topical 1 appl topical Q OTHER DAY 10/10/24 10/14/24 cream thiamine HCl (vitamin B1) 100 mg 100 mg PO DAILY 10/10/24 10/14/24 tablet (Vitamin B-1) rivaroxaban 20 mg tablet (Xarelto) 20 mg PO DAILY@1700 10/14/24 10/14/24 Allergies Allergy/AdvReac Type Severity Reaction Status Date / Time No Known Allergies Allergy Verified 10/18/24 12:59 [No Known Allergies*] Review of Systems Constitutional: Constitutional: Reports no additional constitutional complaints Cardiovascular: Cardiovascular: Reports no additional cardiovascular complaints PMFSH Past Medical History Medical History Rhabdomyolysis Anemia LUCERO (acute kidney injury) Polysubstance abuse Opioid use disorder Opioid use disorder, severe, dependence Substance abuse MSSA bacteremia Bacteremia Bacteremia Right heart failure Steatosis, liver Tricuspid valve stenosis Anasarca HCV (hepatitis C virus) Endocarditis Pulmonary embolism Surgical History History of tricuspid valve replacement with bioprosthetic valve Social History Social History Household Members: Other Household Members Other:: halfway Housing: Other Do you presently have visiting nurse or other home services: No Unable to assess alcohol history related to: Unknown Alcohol intake: current Alcohol intake frequency: holidays/special occasions only Patient Tobacco Use Status: Never used Tobacco Tobacco use type: Cigarette Cigarette Packs Per Day: 1 Cigarettes Per Day: 5 Years Smoked: 10 Second Hand Smoke Exposure: No Substance Use Type: Crack/Cocaine, Marijuana and Opiates Advance Directives: Yes Advance Directives on File: Yes Advance Directives Date on File: 04/16/21 Do you have a plan to hurt others: No Plan service: No Current occupational status: unemployed Physical Exam ED Vital Signs: BMI result Body Mass Index 26.9 Const General: comfortable and no acute distress Nutritional Appearance: average body habitus Orientation/consciousness: patient oriented x3 HENMT Head: Yes normal to inspection Face and sinus: Yes normal facial exam Neck Neck: Yes normal visual inspection Chest Chest palpation & inspection: normal inspection of the chest Cardio Jugular venous distension: no JVD Rate: regular rate Rhythm: regular rhythm GI Inspection: Yes normal to inspection Neuro General: patient oriented x3 Cranial nerves: Yes CN's II-XII intact bilaterally Extrem Other: Examination of the left lower extremity showed varicose vein oozing see picture Course Reevaluation(s) Reevaluation #1: Remained stable resource recovery specialist and labs pending pt will be signed off to the incoming attending Dr Momin Time: 15:46 Procedures Procedure Narrative Procedure Narrative: bleeding varicous vein was covered with 4X4 then dressed wuth ale bandage ,we were able to control the bleeding Medical Decision Making Medical Decision Making MDM Narrative: Patient presented with bleeding of varicose vein will apply pressure dressing he is also requesting detox will consult care team Differential Diagnosis Differential Diagnoses: The differential diagnosis associated with the presentation includes Arterial bleeding/venous bleeding Admission/Observation Consideration of admission/observation: Escalation of care including admission/observation considered Discharge Plan Discharge Clinical Impression: Drug abuse, Bleeding from varicose vein Patient Disposition: Still a Patient Prescriptions: No Action methadone [Methadone Intensol] 10 mg/mL Concentrate 115 mg PO DAILY hydroxyzine HCl 50 mg Tablet 50 mg PO TID PRN (Reason: Anxiety) silver sulfadiazine 1 % cream 1 appl topical Q OTHER DAY thiamine HCl (vitamin B1) [Vitamin B-1] 100 mg Tablet 100 mg PO DAILY albuterol sulfate [Ventolin HFA] 90 mcg/actuation HFA aerosol inhaler 1 puff INHALATION QID PRN (Reason: wheezing) ferrous sulfate 325 mg (65 mg iron) tablet,delayed release (DR/EC) 325 mg PO DAILY magnesium oxide 400 mg magnesium Tablet 400 mg PO DAILY Xarelto 20 mg tablet 20 mg PO DAILY@1700 Print Language: Luxembourgish
[2024-10-18 15:57] VITALS: BP 124/91; PULSE 87; RESP 19; TEMP 36.3; O2SAT 93
[2024-10-18 16:04] LABS: MANUAL DIFF FLAG NO
[2024-10-18 16:07] LABS: Basophils Percent Auto 0.2 % (0-2); Eosinophils Percent Auto 0.1 % (0-4); Hematocrit 21.2 % (42.0-52.0); Imm Gran Abs Auto 0.16 X10*3/uL (0.00-0.03); Imm Gran Pct Auto 1.3 % (0.0-0.4); Lymphocytes Absolute Auto 1.8 X10*3/uL (1.2-4.9); Lymphocytes Percent Auto 14.4 % (20-40); Mean Corpuscular HGB Conc 30.7 g/dl (31.0-36.0); Mean Corpuscular Hemoglobin 21.7 pg (27.0-33.0); Mean Corpuscular Volume 70.9 fL (80.0-98.0); Mean Platelet Volume 8.8 fL (9.4-12.4); Monocytes Absolute Auto 1.4 X10*3/uL (0.1-1.2); Monocytes Percent Auto 11.5 % (2-11); NRBC Pct Auto 0.3 /100WBC (0.0-0.2); Neutrophils Absolute Auto 8.9 x10*3/uL (2.0-8.3); Neutrophils Percent Auto 72.5 % (45-73); Platelet Count 351 X10*3/uL (160-400); Red Blood Count 2.99 X10*6/uL (4.60-5.80); Red Cell Distribution Width 19.2 % (11.0-16.0); White Blood Count 12.3 X10*3/uL (4.8-10.8)
[2024-10-18 16:10] LABS: Hemoglobin 6.5 g/dl (14.0-18.0)
[2024-10-18 16:25] LABS: Alanine Aminotransferase 115 U/L (0-40); Alkaline Phosphatase 174 U/L (39-117); Anion Gap 14 (12-20); Aspartate Amino Transferase 292 U/L (5-37); Bilirubin Total 1.2 mg/dL (0.0-1.0); Blood Urea Nitrogen 48 mg/dL (9-16); Calcium 8.3 mg/dL (8.4-10.2); Carbon Dioxide 14 mmol/L (22-29); Chloride 108 mmol/L (96-108); Creatinine Clr Calc Pharmacy 70.7; Estimated Glomerular Filt Rate > 60; Glucose Random 85 mg/dL (60-115); Sodium 132 mmol/L (135-145)
--- NOTE | 2024-10-18 16:35 | PM.EVENT ---
Event Note Date of Service: 10/18/24 Event Note: Consult received for patient seeking ATS admission Chart reviewed, at this time patient is not medically cleared to refer to ATS Time Spent With Patient Time: Total time managing care of this patient today ____ minutes.
[2024-10-18 18:02] LABS: Lactic Acid 1.8 mmol/L (0.5-2.0)
[2024-10-18] MEDS: cefTRIAXone sodium 1 GM VIAL IVPUSH (18:22)
[2024-10-18] MEDS: vancomycin HCL 1,000 MG in 0.9 % Sodium Chloride 250 ML 270 MG IV (18:28)
--- NOTE | 2024-10-18 18:42 | PC.NURSE ---
Pt comes to ED via EMS from PCP office. Per EMS, Pt showed up to his PCP appointment for his LLE (wound/bleeding) under the infulence of heroin to which Pt expressed the desire to be sent to detox. Upon arrival, Pt is droswey but easily awkens with verbal stimulition.
[2024-10-18 19:09] LABS: OBS Int Ctl Valid YES; OBS1 NEGATIVE (NEGATIVE)
--- NOTE | 2024-10-18 19:17 | PC.NURSE ---
Care of Pt relinquished to NABEEL Gilliland
[2024-10-18 21:13] VITALS: BP 115/82; PULSE 82; RESP 12; TEMP 36.3
[2024-10-18 21:16] VITALS: BP 110/69; PULSE 82; RESP 12; O2SAT 98
[2024-10-18 21:32] VITALS: BP 113/70; PULSE 83; RESP 12; TEMP 36.3
--- NOTE | 2024-10-18 21:32 | PC.NURSE ---
1st unit of RBC transfusion initiated at 21:18 by this RN, witnessed by Sandra LEES. Denies any complaints within first 15 minutes of infusion. Maintenance infusion rate at this time. 2nd unit to be infused upon completion of 1st unit. Care ongoing by this RN. Vital signs remain stable at this time. Blood transfusion consent signed and on file in patient's chart, signed by Dr. Momin.
[2024-10-18 21:33] VITALS: BP 113/70; PULSE 83; RESP 12; TEMP 36.3
[2024-10-18 21:45] LABS: Amphetamine Screen Urine Not Detected (Not Detect); Barbiturates, Urine Not Detected (Not Detect); Benzodiazepines Screen Urine Not Detected (Not Detect); Buprenorphine Scr Not Detected (Not Detect); Cannabinoid Screen Urine Not Detected (Not Detect); Cocaine Screen Urine POSITIVE (Not Detect); Fentanyl, urine POSITIVE (Not Detect); Methadone Screen, Urine Positive (Not Detect); Opiate Screen Urine POSITIVE (Not Detect); Oxycodone Screen Urine Not Detected (Not Detect); Phencyclidine Screen Urine Not Detected (Not Detect)
[2024-10-19] VITALS (11 sets, daily range): BP systolic 98–128; BP diastolic 62–83; PULSE 84–98; RESP 10–21; TEMP 36.6–36.9; O2SAT 92–98
--- NOTE | 2024-10-19 00:42 | PC.NURSE ---
2nd unit of blood initiated at 00:24AM on 10/19/2024. Vitals remain stable. Patient is arousable, but drowsy. Care ongoing by this RN.
--- NOTE | 2024-10-19 03:42 | PC.NURSE ---
Patient has been sleeping the majority of this RN's shift. Wakes up briefly when spoken to, or to eat a snack. Patient reports still seeking detox. Plan for CARE team in the morning.
[2024-10-19 05:52] LABS: Hematocrit 26.8 % (42.0-52.0); Hemoglobin 8.7 g/dl (14.0-18.0)
--- NOTE | 2024-10-19 05:54 | PC.NURSE ---
Repeat H&H drawn and sent to lab for analysis. Awaiting results. Patient continues to seek detox. Sleeping majority of this RN's shift, but is arousable.
[2024-10-19] MEDS: Lidocaine HCl 1%/Epi 1:100,000 10 ML VIAL INFILTRATI (09:53)
--- NOTE | 2024-10-19 09:53 | PC.NURSE ---
plan to move pt to POD to await CARE consult. removed ale wrap for ligature risk and pt began bleeding profusely from LLL. MD Ya at bedside. placed a stitch to control bleeding. redressed area with non-stick adherent dressing and ale wrap. will maintain pt in ED main.
--- NOTE | 2024-10-19 13:26 | MHC.CARE ---
CARE Team met with pt as there are no Recovery Team staff members on duty today. Pt was given a patient resource booklet with Recovery related resources highlighted for ease of navigation. Pt wass also provided with information pamphlets detailing community recovery resources. Pt was encouraged to utilize the numbers and resources contained within the documents provided.
--- NOTE | 2024-10-19 15:51 | HE.PHANOTE ---
RE: METHADONE DOSING Last dose of methadone 115 mg was give on 10/18/24 @0901 at [facility] clinic [phone] per [place].
[2024-10-19] MEDS: methADONE HCl 20 MG/2 ML ORAL.CONC 115 MG PO (16:24)
--- NOTE | 2024-10-19 16:44 | PC.NURSE ---
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
== END 2024-10-19 18:52 | disposition home or self-care (01) ==
PROVIDERS: Emergency Medicine; Emergency Medicine Emergency Medical Services; Internal Medicine; Emergency Provider Emergency Medicine
DX: I83.892 Varicose veins of left lower extremity with other complications (principal); D50.0 Iron deficiency anemia secondary to blood loss (chronic); F17.210 Nicotine dependence, cigarettes, uncomplicated; F14.10 Cocaine abuse, uncomplicated; F11.10 Opioid abuse, uncomplicated; R23.3 Spontaneous ecchymoses; F10.129 Alcohol abuse with intoxication, unspecified; Y90.9 Presence of alcohol in blood, level not specified; Z79.899 Other long term (current) drug therapy; Z51.81 Encounter for therapeutic drug level monitoring; Z71.51 Drug abuse counseling and surveillance of drug abuser
CPT/HCPCS: 36415; 36430; 71045; 80053; 80307; 82272; 83605; 85014; 85018; 85025; 86850; 86900; 86901; 86923; 87040; 96365; 96366; 96375; 99285; J0696; J2004; J3370; P9016

== ENCOUNTER → 2024-10-18 17:07 | Outpatient (BNV) | payer MEDICAID, SELFPAY | PROVIDERS: Emergency Provider Internal Medicine; Visit Provider Radiology Diagnostic Radiology | DX: R07.9 Chest pain, unspecified (principal) | CPT/HCPCS: 71045 ==

== ENCOUNTER 2024-11-03 02:37 | Inpatient (IN) | payer MEDICAID, SELFPAY ==
--- NOTE | ~2024-11-03 | US_ITS ---
EXAMINATION: US SCROTUM HISTORY: Scrotal swelling. COMPARISONS: Comparison is made with the prior examination dated 04/15/2021. FINDINGS: Real-time grayscale ultrasound imaging of the scrotum was performed. The examination is limited by lack of patient cooperation. RIGHT TESTICLE: The right testis measures 3.4 x 2.5 x 2.2 cm and demonstrates normal homogeneous echotexture. No masses are seen. The right testis demonstrates normal color Doppler flow. RIGHT EPIDIDYMIS: Normal in size, shape, and vascularity. There is an epididymal head cyst measuring 5 x 4 x 7 mm. LEFT TESTICLE: The left testis measures 3.5 x 2.4 x 2.4 cm and demonstrates normal homogeneous echotexture. No masses are seen. Doppler evaluation of the left testis was not possible due to lack of patient cooperation. LEFT EPIDIDYMIS: Normal in size, shape, and vascularity. VARICOCELE: None. HYDROCELE: No significant hydrocele is seen. OTHER COMMENTS: There is marked scrotal skin thickening. US/US scrotum IMPRESSION: Limited examination due to lack of patient cooperation. Marked scrotal wall thickening. No evidence of a testicular mass. Electronically signed by: Earl Miller MD 11/03/2024 03:51 PM [facility]
--- NOTE | ~2024-11-03 | XR_ITS ---
EXAMINATION: XR TIBIA AND FIBULA, LEFT CLINICAL INFORMATION: Wound, rule out osteomyelitis. COMPARISON: None available. TECHNIQUE: AP and lateral views of the left tibia and fibula were obtained. FINDINGS: Normal bone mineralization. No fracture, dislocation, or suspicious bone lesion. No focal osteopenia or evidence of hernia bone change. No periostitis. Imaged joints appear normal. Soft tissues demonstrate diffuse subcutaneous edema. The discrete ulceration is not identified on this exam but may involve the anterior anthony. XR/XR tibia fibula LT 2V IMPRESSION: 1. No radiographic evidence of osteomyelitis. No fracture or dislocation. 2. Diffuse subcutaneous soft tissue edema. Probable ulceration anterior anthony. Electronically signed by: Cory Krishnan MD 11/03/2024 11:05 AM [facility]
--- NOTE | ~2024-11-03 | US_ITS ---
EXAMINATION: US DOPPLER VENOUS LOWER EXTREMITY, LEFT CLINICAL INFORMATION: Pain, swelling and erythema, left lower extremity COMPARISON: Ultrasound venous lower extremities dated August 22, 2024 TECHNIQUE: Color-flow Doppler deep venous system imaging with spectral analysis and compression Doppler were performed on the left lower extremity. FINDINGS: Respiratory variation, normal compression and augmented flow are noted throughout the left lower extremity. The visualized common femoral vein, superficial femoral vein, profunda femoral vein, popliteal vein and midcalf peroneal and posterior tibial venous segments show no evidence of deep venous thrombosis. There is no Mauricio's cyst. Prominent, 3 cm lymph nodes with a fatty hilum in the inguinal regions. Edema pattern throughout the left lower extremity without fluid collections. US/US venous duplex LE LT IMPRESSION: No acute deep venous thrombosis involving the left lower extremity. Edema pattern throughout the left lower extremity. No organized fluid collections. Electronically signed by: Rito Hernandez MD 11/03/2024 10:37 AM [facility]
[2024-11-03 02:41] VITALS: BP 150/98; PULSE 105; O2SAT 94
[2024-11-03 03:29] VITALS: BP 118/78; PULSE 89; RESP 12; TEMP 36.8; O2SAT 96; BMI 22.7
[2024-11-03 06:22] VITALS: BP 103/68; PULSE 87; RESP 14; TEMP 36.8; O2SAT 96
[2024-11-03 07:00] LABS: Anion Gap 11 (12-20); Blood Urea Nitrogen 18 mg/dL (9-16); Calcium 8.4 mg/dL (8.4-10.2); Carbon Dioxide 19 mmol/L (22-29); Chloride 110 mmol/L (96-108); Creatinine Clr Calc Pharmacy 128.3; Estimated Glomerular Filt Rate > 60; Glucose Random 71 mg/dL (60-115); Potassium 4.4 mmol/L (3.3-5.1); Sodium 136 mmol/L (135-145)
[2024-11-03 07:03] LABS: Hematocrit 28.1 % (42.0-52.0); Hemoglobin 8.4 g/dl (14.0-18.0); Mean Corpuscular HGB Conc 29.9 g/dl (31.0-36.0); Mean Platelet Volume 9.4 fL (9.4-12.4); Platelet Count 328 X10*3/uL (160-400); Red Blood Count 3.65 X10*6/uL (4.60-5.80); Red Cell Distribution Width 25.4 % (11.0-16.0); White Blood Count 9.5 X10*3/uL (4.8-10.8)
--- NOTE | 2024-11-03 08:53 | ED.GENADULT ---
HPI - General Adult General Chief complaint: General Medical Stated complaint: Gen Med Time Seen by Provider: 11/03/24 08:52 Source: patient, RN notes reviewed and old records reviewed Mode of arrival: ambulatory Limitations: no limitations History of Present Illness ED Provider: Bob ROSARIO narrative: Patient is a 34-year-old male with history of opioid use disorder, polysubstance use, HCV, endocarditis, PE in 2020, tricuspid valve stenosis, MSSA bacteremia, anemia presenting to the emergency department for evaluation of left lower leg and suture removal. Patient was seen in this ED on 10/18 and had multiple sutures placed for bleeding varicose veins. He also received several units of blood at that visit for anemia secondary to blood loss from varicose veins. He missed his follow up appointment, and presented to the [facility] walk in clinic who expressed concern over leg swelling and referred patient to the ED. Patient states he has been changing the dressings on his own. Complains of pain and swelling to left leg up to and including groin/scrotum. Denies fevers, chills, body aches. MD complaint: leg swelling Treatments prior to arrival: none Related Data Home Medications ?Medication ?Instructions ?Recorded ?Confirmed hydroxyzine HCl 50 mg tablet 50 mg PO TID PRN Anxiety 03/30/24 10/14/24 methadone 10 mg/mL oral 115 mg PO DAILY 09/13/24 10/19/24 concentrate (Methadone Intensol) albuterol sulfate 90 mcg/actuation 1 puff inhalation QID PRN wheezing 10/10/24 10/14/24 aerosol inhaler (Ventolin HFA) ferrous sulfate 325 mg (65 mg 325 mg PO DAILY 10/10/24 10/14/24 iron) tablet,delayed release magnesium oxide 400 mg PO DAILY 10/10/24 10/14/24 silver sulfadiazine 1 % topical 1 appl topical Q OTHER DAY 10/10/24 10/14/24 cream thiamine HCl (vitamin B1) 100 mg 100 mg PO DAILY 10/10/24 10/14/24 tablet (Vitamin B-1) rivaroxaban 20 mg tablet (Xarelto) 20 mg PO DAILY@1700 10/14/24 10/14/24 Allergies Allergy/AdvReac Type Severity Reaction Status Date / Time No Known Allergies Allergy Verified 11/03/24 03:32 [No Known Allergies*] Review of Systems Review of Systems: As per HPI. Yes all other systems are reviewed and are negative Constitutional: Constitutional: Reports as per HPI [facility] Past Medical History Medical History Rhabdomyolysis Anemia LUCERO (acute kidney injury) Polysubstance abuse Opioid use disorder Opioid use disorder, severe, dependence Substance abuse MSSA bacteremia Bacteremia Bacteremia Right heart failure Steatosis, liver Tricuspid valve stenosis Anasarca HCV (hepatitis C virus) Endocarditis Pulmonary embolism Surgical History History of tricuspid valve replacement with bioprosthetic valve Social History Social History Household Members: Other Household Members Other:: nursing home Housing: Other Do you presently have visiting nurse or other home services: No Unable to assess alcohol history related to: Unknown Alcohol intake: current Alcohol intake frequency: holidays/special occasions only Patient Tobacco Use Status: Never used Tobacco Tobacco use type: Cigarette Cigarette Packs Per Day: 1 Cigarettes Per Day: 5 Years Smoked: 10 Second Hand Smoke Exposure: No Substance Use Type: Heroin Advance Directives: Yes Advance Directives on File: Yes Advance Directives Date on File: 04/16/21 service: No Current occupational status: unemployed Physical Exam ED Vital Signs: Vital Signs - 24 hr 11/03/24 03:29 11/03/24 06:22 Temperature 98.2 F 98.3 F Pulse Rate 89 87 Respiratory Rate 12 14 Blood Pressure 118/78 103/68 Pulse Oximetry 96 96 Oxygen Delivery Method Room Air Room Air BMI result Body Mass Index 22.7 Vital signs have been reviewed and appear to be correct. Blood pressure normal. Heart rate normal. Respiratory rate normal. Temperature normal. Oxygen saturation normal. Const General: cooperative and no acute distress Orientation/consciousness: oriented to person, oriented to place, oriented to time and patient oriented x3 Limitations: no limitations HENMT Head: Yes normocephalic and Yes atraumatic Ears: external ears normal General nose exam: Normal external nose present Face and sinus: Yes face symmetric Mouth: oropharynx normal and moist mucous membranes Throat: Yes uvula midline Eyes Pupils: Equal, round and reactive pupils present Neck Neck: Yes normal visual inspection and Yes supple Resp Effort & Inspection: normal respiratory effort and able to speak in complete sentences Auscultation: clear to auscultation bilaterally Cardio Rate: regular rate Rhythm: regular rhythm Heart sounds: S1 normal heart sound present and S2 normal heart sound present GI Palpation (GI): Soft to palpation and nontender Auscultation: normoactive bowel sounds General: Yes no CVA tenderness Back/Spine/Pelvis Back: no CVA tenderness Skin General skin exam: elasticity normal and turgor normal Neuro General: oriented to person, oriented to place, oriented to time, patient oriented x3, moves all extremities, no focal motor deficits and CN's II-XI intact bilaterally Cranial nerves: Yes Equal, round and reactive pupils present Cognition (Neuro): normal cognition Extrem Other: General: Yes full ROM Psych Mental Status: mental status grossly normal Affect: normal affect Thought process: Normal thought process present Medical Decision Making Medical Decision Making [facility] Narrative: Patient is a 34-year-old male with history of opioid use disorder, polysubstance use, HCV, endocarditis, PE in 2020, tricuspid valve stenosis, MSSA bacteremia, anemia presenting to the emergency department for evaluation of left lower leg and suture removal. On exam patient is awake, A+Ox3, VS WNL, afebrile, normal neurological exam without focal deficits, physical exam findings as above. Given reported symptoms and physical exam findings, initial differential includes but is not limited to DVT, cellulitis, osteomyelitis. Labs notable for no leukocytosis, anemia improved from prior visit, not at transfusable level, elevated CRP. X-ray notable for no evidence of osteomyelitis. U/S is without evidence of DVT. My interpretation is in agreement with the radiologist's interpretation. Given significant change in appearance from 10/18 feel patient requires admission for IV antibiotics, Vanco ordered. Will also confirm last dose of methadone and order dose for today. Admission to medicine accepted by Dr. Snowden. Differential Diagnosis Differential Diagnoses: The differential diagnosis associated with the presentation includes As per [facility] Admission/Observation Consideration of admission/observation: Escalation of care including admission/observation considered Consult Healthcare Provider Management of the patient was discussed with: Hospitalist Lab Data [facility] Lab Attestation statement: I reviewed the patient's lab results. As per [facility] 11/03/24 06:29 11/03/24 06:29 Labs: Lab Results 11/03/24 11/03/24 11/03/24 Range/Units 06:29 09:49 10:09 WBC 9.5 (4.8-10.8) X10*3/uL RBC 3.65 L D (4.60-5.80) X10*6/uL Hgb 8.4 L (14.0-18.0) g/dl Hct 28.1 L (42.0-52.0) % MCV 77.0 L (80.0-98.0) fL MCH 23.0 L (27.0-33.0) pg MCHC 29.9 L (31.0-36.0) g/dl RDW 25.4 H (11.0-16.0) % Plt Count 328 (160-400) X10*3/uL MPV 9.4 (9.4-12.4) fL Absolute Nucleated RBC 0.000 (0.0-0.012) X10*3/uL Nucleated RBC % (auto) 0.0 (0.0-0.2) /100WBC ESR 8 (0-15) MM/HR PT 21.1 H D (10.9-12.4) SEC INR 1.8 H (0.9-1.1) Sodium 136 (135-145) mmol/L Potassium 4.4 (3.3-5.1) mmol/L Chloride 110 H (96-108) mmol/L Carbon Dioxide 19 L (22-29) mmol/L Anion Gap 11 L (12-20) BUN 18 H (9-16) mg/dL Creatinine 0.74 (0.5-1.4) mg/dL Estim Creat Clear Calc 128.3 Estimated GFR > 60 Random Glucose 71 (60-115) mg/dL Lactic Acid 0.7 (0.5-2.0) mmol/L Calcium 8.4 (8.4-10.2) mg/dL C-Reactive Protein 4.35 H (< or = 0.50) mg/dL Urine Color Yellow Urine Appearance Clear Urine pH 6.5 (5.0-9.0) Ur Specific [place] 1.015 (1.005-1.025) Urine Protein Negative (Neg-Trace) mg/dL Urine Glucose (UA) Negative (Negative) mg/dL Urine Ketones Negative (Negative) mg/dL Urine Blood Negative (Negative) Urine Nitrite Negative (Negative) Ur Leukocyte Esterase Negative (Negative) Urine Opiates Screen POSITIVE H (Not Detect) Ur Buprenorphine Scrn Not Detected (Not Detect) ng/mL Ur Oxycodone Screen Not Detected (Not Detect) ng/mL Urine Methadone Screen Positive H (Not Detect) ng/mL Urine Fentanyl Screen POSITIVE H (Not Detect) Ur Barbiturates Screen Not Detected (Not Detect) Ur Phencyclidine Scrn Not Detected (Not Detect) Ur Amphetamines Screen Not Detected (Not Detect) U Benzodiazepines Scrn Not Detected (Not Detect) Urine Cocaine Screen POSITIVE H (Not Detect) U Marijuana (THC) Screen Not Detected (Not Detect) Independent Interpretation I performed an independent interpretation of an: Plain X-Ray and Ultrasound Interpretation: X-ray notable for no evidence of osteomyelitis. U/S is without evidence of DVT. Radiology Impression Discussion of test interpretation with radiology: I have reviewed the radiologist's reading. Radiologist Impression: US/US venous duplex LE LT IMPRESSION: No acute deep venous thrombosis involving the left lower extremity. Edema pattern throughout the left lower extremity. No organized fluid collections. XR/XR tibia fibula LT 2V IMPRESSION: 1. No radiographic evidence of osteomyelitis. No fracture or dislocation. 2. Diffuse subcutaneous soft tissue edema. Probable ulceration anterior anthony. External Record Review External record reviewed: Inpatient record, Office record and Outpatient record Prescription Management I considered prescription management with: Antibiotic Discharge Plan Discharge Patient Disposition: Admitted As Inpatient Prescriptions: No Action methadone [Methadone Intensol] 10 mg/mL Concentrate 115 mg PO DAILY hydroxyzine HCl 50 mg Tablet 50 mg PO TID PRN (Reason: Anxiety) silver sulfadiazine 1 % cream 1 appl topical Q OTHER DAY thiamine HCl (vitamin B1) [Vitamin B-1] 100 mg Tablet 100 mg PO DAILY albuterol sulfate [Ventolin HFA] 90 mcg/actuation HFA aerosol inhaler 1 puff INHALATION QID PRN (Reason: wheezing) ferrous sulfate 325 mg (65 mg iron) tablet,delayed release (DR/EC) 325 mg PO DAILY magnesium oxide 400 mg magnesium Tablet 400 mg PO DAILY Xarelto 20 mg tablet 20 mg PO DAILY@1700 Print Language: Vietnamese
[2024-11-03 09:37] LABS: C Reactive Protein 4.35 mg/dL (< or = 0.50)
[2024-11-03 10:05] LABS: INTERNATIONAL NORM RATIO 1.8 (0.9-1.1); Prothrombin Time 21.1 SEC (10.9-12.4)
[2024-11-03 10:09] LABS: Erythrocyte Sedimentation Rate 8 MM/HR (0-15)
[2024-11-03 10:19] LABS: Lactic Acid 0.7 mmol/L (0.5-2.0)
[2024-11-03 10:21] LABS: Appearance Urine Clear; Color Urine Yellow; Glucose Urine UA Negative (Negative); Leukocyte Esterase Urine Negative (Negative); Nitrite Urine Negative (Negative); PH 6.5 (5.0-9.0); Specific Gravity - Urine 1.015 (1.005-1.025); Urine Blood Negative (Negative); Urine Ketones Negative (Negative); Urine Protein Negative (Neg-Trace)
[2024-11-03 10:28] LABS: Amphetamine Screen Urine Not Detected (Not Detect); Barbiturates, Urine Not Detected (Not Detect); Benzodiazepines Screen Urine Not Detected (Not Detect); Buprenorphine Scr Not Detected (Not Detect); Cannabinoid Screen Urine Not Detected (Not Detect); Cocaine Screen Urine POSITIVE (Not Detect); Fentanyl, urine POSITIVE (Not Detect); Methadone Screen, Urine Positive (Not Detect); Opiate Screen Urine POSITIVE (Not Detect); Oxycodone Screen Urine Not Detected (Not Detect); Phencyclidine Screen Urine Not Detected (Not Detect)
--- NOTE | 2024-11-03 11:15 | MHC.EDTECH ---
rn and provider aware pt refused vitals
--- NOTE | 2024-11-03 11:38 | PC.NURSE ---
spoke with Mark Rn at [facility], will call dept back to verify dose
[2024-11-03] MEDS: vancomycin HCL 1,000 MG, vancomycin HCL 750 MG in 0.9 % Sodium Chloride 500 ML 267.5 MG IV (12:35)
--- NOTE | 2024-11-03 12:35 | HE.PHANOTE ---
RE: METHADONE DOSING Last dose of methadone 115 mg given at [facility] on 10/28/24 with 5 take home doses per Abril LEES. Patient took his home dose yesterday per nurse Randa King.
[2024-11-03] MEDS: methADONE HCl 20 MG/2 ML ORAL.CONC 115 MG PO (12:45)
--- NOTE | 2024-11-03 13:08 | PHA.MEDREC ---
Pharmacy Consult ? Medication Reconciliation Pharmacy has completed the medication reconciliation. Pt was here last month, he stated nothing changed with his meds since then. Was drowsy but able to tell me what he takes. Unsure of his last dose, he kept stating that his Xarelto ran out and he had a prescription to [facility] for it. So he potentially hasn't had it for some time.
--- NOTE | 2024-11-03 13:41 | P.HPHOSP_ITS ---
History of Present Illness Date of Service: 11/03/24 Attending physician on admission: Janeen Long Chief Complaint: Right lower leg swelling and pain Pt is a 34-year-old male with a PMH significant for?continuing polysubstance use disorder with IVDU, endocarditis s/p bioprosthetic tricuspid valve replacement complicated by valve stenosis, septic pulmonary emboli and empyema, hx of DVT and PE noncompliant with Xarelto, cardiomyopathy, recurrent bacteremia and endocarditis, untreated chronic hepatitis-C, anemia, and cirrhosis who presents to the ED from [facility] walk[facility]in clinic for evaluation of left lower extremity and scrotal swelling and pain for the past few days. Pt was previously seen in the ED on 10/18/2024 where he had sutures placed in left lower extremity due to bleeding from varicose veins. Pt also required transfusion of 2 units PRBCs at that time. Pt missed his follow-up appointment to have sutures removed and since that time has had increased redness, pain, and swelling in left lower extremity for the past week. Also complains of scrotal swelling and pain for the past few days. No urinary complaints. Subjective fever and chills. No chest pain/pressure, palpitations. Denies nausea, vomiting, abdominal pain. No shortness a breath or difficulty breathing. Pt reports last used yesterday cocaine and heroin. Reports injects in arms and never and legs. Of note, pt has a long hx of noncompliance with home medications or outpatient care, as well as leaving hospitalist AMA. Additionally, sutures were not removed in the ED due to concerns for recurrent bleeding. In the ED pt was afebrile with vital signs stable and WNL. Labs were significant for CRP elevated at 4.35, otherwise grossly unremarkable and around baseline for pt. No leukocytosis. Chronic microcytic anemia of 8.4/28.1, at baseline. No significant electrolyte abnormalities. Renal function baseline. UA negative for UTI. Tox screen positive for opiates, methadone, fentanyl, and cocaine. X-ray of left tibia and fibula negative for acute osteomyelitis, fracture, or dislocation. Does show diffuse subcutaneous soft tissue anemia and probable ulceration of anterior anthony. Ultrasound of left lower extremity negative for acute DVT or organized fluid collection. Pt was treated with vancomycin and methadone. Pt will be admitted to the hospital for treatment and further evaluation left lower extremity cellulitis in the setting of retained sutures and outpatient noncompliance. Review of Systems 2 Review of Systems: Negative except for that which is stated in the [facility] Medical History Rhabdomyolysis Anemia LUCERO (acute kidney injury) Polysubstance abuse Opioid use disorder Opioid use disorder, severe, dependence Substance abuse MSSA bacteremia Bacteremia Bacteremia Right heart failure Steatosis, liver Tricuspid valve stenosis Anasarca HCV (hepatitis C virus) Endocarditis Pulmonary embolism Surgical History History of tricuspid valve replacement with bioprosthetic valve Social History Household Members: Other Household Members Other:: half-way Housing: Other Do you presently have visiting nurse or other home services: No Unable to assess alcohol history related to: Refusing to respond Alcohol intake: current Alcohol intake frequency: holidays/special occasions only Patient Tobacco Use Status: Never used Tobacco Tobacco use type: Cigarette Cigarette Packs Per Day: 1 Cigarettes Per Day: 5 Years Smoked: 10 Second Hand Smoke Exposure: No Substance Use Type: Heroin Advance Directives: Yes Advance Directives on File: Yes Advance Directives Date on File: 04/16/21 service: No Current occupational status: unemployed Meds Allergies Allergy/AdvReac Type Severity Reaction Status Date / Time No Known Allergies Allergy Verified 11/03/24 03:32 [No Known Allergies*] Active Medications: Current Medications Albuterol Sulfate (Albuterol Sulfate 90 Mcg 8 Gm Inhaler) 1 puff INHALE QID PRN PRN Reason: wheezing Hydroxyzine HCl (Hydroxyzine Hcl 50 Mg Tablet) 50 mg PO TID PRN PRN Reason: Anxiety Vancomycin HCl 1,000 mg/Vancomycin HCl 750 mg/ Sodium Chloride 535 mls @ 267.5 mls/hr IV ONCE ONE Stop: 11/03/24 13:59 Last Admin: 11/03/24 12:35 Dose: 267.5 mls/hr Magnesium Oxide (Magnesium Oxide 400 Mg Tablet) 400 mg PO DAILY CRISTINA Methadone HCl (Methadone Hcl 20 Mg/2 Ml Oral.Conc) 115 mg PO DAILY CRISTINA Non-Formulary Medication (Ferrous Sulfate) 325 mg PO DAILY CRISTINA Rivaroxaban (Rivaroxaban 20 Mg Tablet) 20 mg PO DAILY@1700 CRISTINA Thiamine HCl (Thiamine Hcl 100 Mg Tablet) 100 mg PO DAILY [facility] Home Medications ?Medication ?Instructions ?Recorded ?Confirmed ?Last Taken ?Type hydroxyzine HCl 50 mg tablet 50 mg PO TID PRN Anxiety 03/30/24 11/03/24 1 Week Ago History ~09/06/24 methadone 10 mg/mL oral 115 mg PO DAILY 09/13/24 11/03/24 11/02/24 History concentrate (Methadone Intensol) albuterol sulfate 90 mcg/actuation 1 puff inhalation QID PRN wheezing 10/10/24 11/03/24 Unknown History aerosol inhaler (Ventolin HFA) ferrous sulfate 325 mg (65 mg 325 mg PO DAILY 10/10/24 11/03/24 10/11/24 History iron) tablet,delayed release magnesium oxide 400 mg PO DAILY 10/10/24 11/03/24 10/11/24 History silver sulfadiazine 1 % topical 1 appl topical Q OTHER DAY 10/10/24 11/03/24 10/11/24 History cream thiamine HCl (vitamin B1) 100 mg 100 mg PO DAILY 10/10/24 11/03/24 10/11/24 History tablet (Vitamin B-1) rivaroxaban 20 mg tablet (Xarelto) 20 mg PO DAILY@1700 10/14/24 11/03/24 10/11/24 History Physical Exam 2 Vital Signs and Narrative: Vital Signs: Last Vital Signs Temp 98.3 F 11/03/24 06:22 Pulse 87 11/03/24 06:22 Resp 14 11/03/24 06:22 BP 103/68 11/03/24 06:22 Pulse Ox 96 11/03/24 06:22 O2 Del Method Room Air 11/03/24 06:22 BMI result Body Mass Index 22.7 General: AOx3, no acute distress Resp: CTA bilaterally CVS: S1, S2, RRR GI: +BS, NT, no distention Skin: Warm, dry Neuro: Cranial nerves II-XII grossly intact bilaterally. Motor grossly intact bilaterally : Scrotal swelling and tenderness without erythema or warmth. Negative Phren's sign. Extremities: Bilateral 2-3+ pitting edema. Right lower extremity with retained sutures with overlapping skin, ulceration, erythema, warmth, and swelling as pictured below. Psych: Appropriate affect Results Labs 11/04/24 05:26 11/04/24 05:26 Labs: Laboratory Results - last 24 hr 11/03/24 11/03/24 11/03/24 06:29 09:49 10:09 MCV 77.0 L MCH 23.0 L MCHC 29.9 L RDW 25.4 H Plt Count 328 MPV 9.4 Absolute Nucleated RBC 0.000 Nucleated RBC % (auto) 0.0 ESR 8 PT 21.1 H D INR 1.8 H Anion Gap 11 L Estim Creat Clear Calc 128.3 Estimated GFR > 60 Random Glucose 71 Lactic Acid 0.7 Calcium 8.4 C-Reactive Protein 4.35 H Urine Color Yellow Urine Appearance Clear Urine pH 6.5 Ur Specific [place] 1.015 Urine Protein Negative Urine Glucose (UA) Negative Urine Ketones Negative Urine Blood Negative Urine Nitrite Negative Ur Leukocyte Esterase Negative Urine Opiates Screen POSITIVE H Ur Buprenorphine Scrn Not Detected Ur Oxycodone Screen Not Detected Urine Methadone Screen Positive H Urine Fentanyl Screen POSITIVE H Ur Barbiturates Screen Not Detected Ur Phencyclidine Scrn Not Detected Ur Amphetamines Screen Not Detected U Benzodiazepines Scrn Not Detected Urine Cocaine Screen POSITIVE H U Marijuana (THC) Screen Not Detected Imaging Radiologist's Impressions: Impressions Venous Duplex 11/03/24 10:00 IMPRESSION: No acute deep venous thrombosis involving the left lower extremity. Edema pattern throughout the left lower extremity. No organized fluid collections. Electronically signed by: Rito Hernandez MD 11/03/2024 10:37 AM [facility] Tibia/Fibula X-Ray 11/03/24 10:18 IMPRESSION: 1. No radiographic evidence of osteomyelitis. No fracture or dislocation. 2. Diffuse subcutaneous soft tissue edema. Probable ulceration anterior anthony. Electronically signed by: Cory Krishnan MD 11/03/2024 11:05 AM [facility] Assessment and Plan (1) Cellulitis of left leg: Status: Acute Plan Pt is a 34-year-old male with a PMH significant for?continuing polysubstance use disorder with IVDU, endocarditis s/p bioprosthetic tricuspid valve replacement complicated by valve stenosis, septic pulmonary emboli and empyema, hx of DVT and PE noncompliant with Xarelto, cardiomyopathy, recurrent bacteremia and endocarditis, untreated chronic hepatitis-C, anemia, and cirrhosis who presents to the ED from [facility] for evaluation of left lower extremity and scrotal swelling and pain for the past few days. Pt will be admitted to the hospital for treatment and further evaluation left lower extremity cellulitis in the setting of retained sutures and outpatient noncompliance. Left lower extremity cellulitis Secondary to retained sutures, noncompliance with follow up, IVDU Pt had sutures placed on 10/18/2024 for bleeding from varicose veins No sepsis: No tachycardia, tachypnea, fever, or leukocytosis Hx of MRSA bacteremia and IVDU Will treat with vancomycin, started 11/03/2024 Wound care consult General surgery consult for suture removal; sutures were not removed in the ED due to concerns for rebleeding Follow cultures Scrotal swelling Ongoing past few days, minor pain, no significant erythema ?Hydrocele vs spermatocele; epididymitis or testicular torsion unlikely Scrotal ultrasound Hx of DVT/PE Hx of non-compliance with Xarelto U/S of left lower extremity negative for DVT Continue Xarelto Microcytic anemia Stable, at baseline Continue iron supplementation Polysubstance use disorder Continue methadone Addiction medicine consult Hepatitis-C Chronic, untreated Encourage outpatient treatment Mood disorder Continue sertraline Full Code Attending:?Dr. Anderson DVT Prophylaxis: On Xarelto Pt will require a hospitalization of at least two nights for treatment and further evaluation of left lower extremity cellulitis in the setting of retained sutures from failure to follow up with outpatient care. Given patient's significant comorbidities, including continued IVDU, endocarditis with tricuspid valve replacement, hx of recurrent bacteremia, and noncompliance with outpatient care, pt will require inpatient level of care for administration of IV antibiotics. Quality Stroke Does the patient have a stroke diagnosis?: No VTE Prior VTE?: Yes VTE Risk Level:: Medical - moderate - high VTE Device Contraindication: Treatment Not Indicated VTE Drug Contraindication: N/A - Med Ordered
[2024-11-03] MEDS: Thiamine HCL 100 MG TABLET PO (13:49)
[2024-11-03] MEDS: Magnesium Oxide 400 MG TABLET PO (13:49)
[2024-11-03 15:18] VITALS: BP 109/59; PULSE 86; RESP 16; TEMP 36.9; O2SAT 95
--- NOTE | 2024-11-03 15:18 | PHA.PROG ---
Admission Date/Time: November 03, 2024 14:09 Indication: skin + skin structure Weight in k.771 kg Adjusted body weight in Kg: [place] body weight in Kg: Obesity Dosing Indication % IBW: BMI 22.7 Serum Creatinine - Last 168 Hours 11/03/24 06:29 Creatinine 0.74 Estimated CrCl and GFR - Last 168 Hours 11/03/24 06:29 Estim Creat Clear Calc 128.3 Estimated GFR > 60 Vancomycin Loading Dose: 1750mg X1 Current Vancomycin Dosing Regimen: 750 Q8H Vancomycin Monitoring using AUC goal of 400 - 600 range with trough as surrogate marker: 472 Date and Time for next Vancomycin Level to be drawn: 11/04 @1000 Pharmacist Comments on Vancomycin Plan: Patient's renal function appears stable. Started with 750mg Q8H as predicted trough, 15. To be adjust based on trough and renal function stability. Vancomycin dosing will take advantage of [employer] as a clinical decision support tool that uses Bayesian modeling to calculate individual patient's pharmacokinetic parameters and forecast the patient's drug concentration time course with the target goal AUC 24 range of 400 - 600 mg/L/hr.
[2024-11-03] MEDS: 0.9 % Sodium Chloride Flush 3 ML SYRINGE IVFLUSH (15:54)
--- NOTE | 2024-11-03 16:14 | PC.NURSE ---
34 y.o. M PMHx: DOMINIK, HCV, endocarditis, PE in 2020, tricuspid valve stenosis, MSSA bacteremia, anemia prsentd for eval of left lower leg and suture removal. Pt a&o x3, able to perform ADl's independently at baseline. Patient was seen in [facility] ED on 10/18 for bleeding varicose veins at that time multiple sutures were placed to control bleeding, in addition pt was transfused for anemia and blood loss during that visit. Pt did not pursue outpatient follow up and presented to [facility] for complaints for left extremity swelling, the staff at [facility] referred pt to ED for eval. Patient reports performing his own dressing changes. Pt Complains of pain and swelling to left leg up to and including groin/scrotum. Sutures were removed in dept by Gen Surg MD Jerome. Wound was covered with with nonstick gauze and coban for pressure by . Procedure well tolerated by pt. Pt rec methadone from [facility] T# [phone] last dose confirmed 115mg dosed on 10/28 with 5 take home doses. Pt rec methadone dose in dept today. Pt red 20g IV in L wrist, in dept pt rec 1750 of vancomycin. Plan is for admission and tx with IV abx for cellulitis r/t retained sutures.
--- NOTE | 2024-11-03 16:18 | PC.NURSE ---
report given to Lena, RN pt to go to Overflow bed 2
--- NOTE | 2024-11-03 16:57 | P.CONGS_ITS ---
History of Present Illness Consult details Consult date: 11/03/24 Requesting physician: Janeen Long Narrative: 34-year-old male patient with a history of opioid use disorder, hepatitis-C virus, endocarditis, pulmonary embolus in 2020, tricuspid valve stenosis, MSSA bacteremia and history of bleeding varicose veins status post suture LigaSure of bleeding varicose veins in the emergency department performed by Dr. Araiza in the emergency department on 10/15/2024. He returns today with pain and swelling at the site of the sutures which are still in place. Surgical consultation was requested for removal of the sutures placed in the emergency department. Review of Systems 2 Review of Systems: Yes Unobtainable due to mental status PMFSH Past Medical History Medical History Rhabdomyolysis Anemia LUCERO (acute kidney injury) Polysubstance abuse Opioid use disorder Opioid use disorder, severe, dependence Substance abuse MSSA bacteremia Bacteremia Bacteremia Right heart failure Steatosis, liver Tricuspid valve stenosis Anasarca HCV (hepatitis C virus) Endocarditis Pulmonary embolism Surgical History Surgical History History of tricuspid valve replacement with bioprosthetic valve Social History Social History Household Members: Other Household Members Other:: jail Housing: Other Do you presently have visiting nurse or other home services: No Unable to assess alcohol history related to: Refusing to respond Alcohol intake: current Alcohol intake frequency: holidays/special occasions only Patient Tobacco Use Status: Never used Tobacco Tobacco use type: Cigarette Cigarette Packs Per Day: 1 Cigarettes Per Day: 5 Years Smoked: 10 Second Hand Smoke Exposure: No Substance Use Type: Heroin Advance Directives: Yes Advance Directives on File: Yes Advance Directives Date on File: 04/16/21 service: No Current occupational status: unemployed Meds Allergies Allergy/AdvReac Type Severity Reaction Status Date / Time No Known Allergies Allergy Verified 11/03/24 03:32 [No Known Allergies*] Active Medications: Current Medications Acetaminophen (Acetaminophen 325 Mg Tablet) 650 mg PO Q6H PRN PRN Reason: Pain, Mild 1-3,fever,headache Albuterol Sulfate (Albuterol Sulfate 90 Mcg 8 Gm Inhaler) 1 puff INHALE QID PRN PRN Reason: wheezing Calcium Carbonate (Calcium Carbonate 750 Mg Tab.Chew) 750 mg PO Q4H PRN PRN Reason: Heartburn Hydroxyzine HCl (Hydroxyzine Hcl 50 Mg Tablet) 50 mg PO TID PRN PRN Reason: Anxiety Vancomycin HCl 750 mg/ Sodium (Chloride) 265 mls @ 265 mls/hr IV Q8H [facility] Magnesium Hydroxide (Milk Of Magnesia 30 Ml Oral.Susp) 30 ml PO DAILY PRN PRN Reason: Constipation Magnesium Oxide (Magnesium Oxide 400 Mg Tablet) 400 mg PO DAILY [facility] Last Admin: 11/03/24 13:49 Dose: 400 mg Melatonin (Melatonin 3 Mg Tablet) 6 mg PO BEDTIME PRN PRN Reason: Insomnia Methadone HCl (Methadone Hcl 20 Mg/2 Ml Oral.Conc) 115 mg PO DAILY [facility] Morphine Sulfate (Morphine Sulfate 4 Mg/Ml Cartridge) 4 mg IVPUSH Q4H PRN; Protocol PRN Reason: Pain, Severe (Pain Scale 7-10) Non-Formulary Medication (Ferrous Sulfate) 325 mg PO DAILY [facility] Pharmacy Consult (Consult Rx Vancomycin Dosing) 1 each MISCELLANE DAILY PRN PRN Reason: Consult order Rivaroxaban (Rivaroxaban 20 Mg Tablet) 20 mg PO DAILY@1700 [facility] Sodium Chloride (0.9 % Sodium Chloride Flush 3 Ml Syringe) 3 ml IVFLUSH QSHIFT [facility] Last Admin: 11/03/24 15:54 Dose: 3 ml Thiamine HCl (Thiamine Hcl 100 Mg Tablet) 100 mg PO DAILY [facility] Last Admin: 11/03/24 13:49 Dose: 100 mg Home Medications ?Medication ?Instructions ?Recorded ?Confirmed ?Last Taken ?Type hydroxyzine HCl 50 mg tablet 50 mg PO TID PRN Anxiety 03/30/24 11/03/24 1 Week Ago History ~09/06/24 methadone 10 mg/mL oral 115 mg PO DAILY 09/13/24 11/03/24 11/02/24 History concentrate (Methadone Intensol) albuterol sulfate 90 mcg/actuation 1 puff inhalation QID PRN wheezing 10/10/24 11/03/24 Unknown History aerosol inhaler (Ventolin HFA) ferrous sulfate 325 mg (65 mg 325 mg PO DAILY 10/10/24 11/03/24 10/11/24 History iron) tablet,delayed release magnesium oxide 400 mg PO DAILY 12/11/03/24 10/11/24 History silver sulfadiazine 1 % topical 1 appl topical Q OTHER DAY 10/10/24 11/03/24 10/11/24 History cream thiamine HCl (vitamin B1) 100 mg 100 mg PO DAILY 10/10/24 11/03/24 10/11/24 History tablet (Vitamin B-1) rivaroxaban 20 mg tablet (Xarelto) 20 mg PO DAILY@1700 10/14/24 11/03/24 10/11/24 History Physical Exam 2 Vital Signs: Vital Signs: Last Vital Signs Temp 98.4 F 11/03/24 15:18 Pulse 86 11/03/24 15:18 Resp 16 11/03/24 15:18 BP 109/59 L 11/03/24 15:18 Pulse Ox 95 11/03/24 15:18 O2 Del Method Room Air 11/03/24 15:18 BMI result Body Mass Index 22.7 Const: General: intoxicated appearing and lethargic Nutritional Appearance: thin Orientation/consciousness: lethargic Resp: Effort & Inspection: normal respiratory effort GI: Inspection: Yes normal to inspection Extrem: Other: Left leg with a sutured laceration in the anterior calf. No active bleeding was identified. All 3 sutures were removed without incident. Sterile dressings were then applied. Results Labs 11/03/24 06:29 11/03/24 06:29 Labs: Abnormal lab results 11/03/24 11/03/24 11/03/24 Range/Units 06:29 09:49 10:09 RBC 3.65 L D (4.60-5.80) X10*6/uL Hgb 8.4 L (14.0-18.0) g/dl Hct 28.1 L (42.0-52.0) % MCV 77.0 L (80.0-98.0) fL MCH 23.0 L (27.0-33.0) pg MCHC 29.9 L (31.0-36.0) g/dl RDW 25.4 H (11.0-16.0) % PT 21.1 H D (10.9-12.4) SEC INR 1.8 H (0.9-1.1) Chloride 110 H (96-108) mmol/L Carbon Dioxide 19 L (22-29) mmol/L Anion Gap 11 L (12-20) BUN 18 H (9-16) mg/dL C-Reactive Protein 4.35 H (< or = 0.50) mg/dL Urine Opiates Screen POSITIVE H (Not Detect) Urine Methadone Screen Positive H (Not Detect) ng/mL Urine Fentanyl Screen POSITIVE H (Not Detect) Urine Cocaine Screen POSITIVE H (Not Detect) Short CBC 11/03/24 Range/Units 06:29 WBC 9.5 (4.8-10.8) X10*3/uL Hgb 8.4 L (14.0-18.0) g/dl Hct 28.1 L (42.0-52.0) % Plt Count 328 (160-400) X10*3/uL BMP 11/03/24 06:29 Sodium 136 Potassium 4.4 Chloride 110 H Carbon Dioxide 19 L BUN 18 H Creatinine 0.74 Calcium 8.4 Urine 11/03/24 Range/Units 10:09 Urine Color Yellow Urine Appearance Clear Urine pH 6.5 (5.0-9.0) Ur Specific [place] 1.015 (1.005-1.025) Urine Protein Negative (Neg-Trace) mg/dL Urine Glucose (UA) Negative (Negative) mg/dL All other labs normal. Assessment and Plan (1) Bleeding from varicose veins of left lower extremity: Status: Acute Plan Surgical consultation requested for removal of sutures from left lower extremity. Sutures were removed at the bedside and no bleeding identified. Dressing with nonadherent dressing followed by fluff gauze, Lor and light compressive dressing was applied. The patient tolerated this well. I will sign off, please reconsult if needed. Procedures Date of Service Date of Service: 11/03/24
--- NOTE | 2024-11-03 17:30 | PC.NURSE ---
called pharmacy for missing medication
[2024-11-03] MEDS: Rivaroxaban 20 MG TABLET PO (19:22)
[2024-11-03] MEDS: vancomycin HCL 750 MG in 0.9 % Sodium Chloride 250 ML 265 MG IV (19:22)
[2024-11-03] MEDS: Morphine Sulfate 4 MG/ML CARTRIDGE IVPUSH (21:05)
[2024-11-03 21:12] VITALS: BP 110/65; PULSE 88; RESP 18; TEMP 36.8; O2SAT 96
[2024-11-04] MEDS: 0.9 % Sodium Chloride Flush 3 ML SYRINGE IVFLUSH ×2 (00:33→09:24)
[2024-11-04] MEDS: vancomycin HCL 750 MG in 0.9 % Sodium Chloride 250 ML 265 MG IV (04:27)
--- NOTE | 2024-11-04 04:34 | PC.NURSE ---
this rn assumed care of pt @ 0300. pt medicated according to dec. pt provided with two jellos per pt request
[2024-11-04 05:03] VITALS: BP 111/70; PULSE 81; RESP 16; TEMP 36.6; O2SAT 96
[2024-11-04] MEDS: Morphine Sulfate 4 MG/ML CARTRIDGE IVPUSH ×3 (05:33→13:22)
[2024-11-04 05:43] LABS: Hematocrit 28.2 % (42.0-52.0); Hemoglobin 8.2 g/dl (14.0-18.0); Mean Corpuscular HGB Conc 29.1 g/dl (31.0-36.0); Mean Corpuscular Hemoglobin 22.3 pg (27.0-33.0); Mean Corpuscular Volume 76.8 fL (80.0-98.0); Mean Platelet Volume 9.1 fL (9.4-12.4); Platelet Count 324 X10*3/uL (160-400); Red Blood Count 3.67 X10*6/uL (4.60-5.80); White Blood Count 7.2 X10*3/uL (4.8-10.8)
[2024-11-04 06:22] LABS: Anion Gap 11 (12-20); Blood Urea Nitrogen 14 mg/dL (9-16); Calcium 7.8 mg/dL (8.4-10.2); Carbon Dioxide 19 mmol/L (22-29); Chloride 112 mmol/L (96-108); Creatinine Clr Calc Pharmacy 133.8; Estimated Glomerular Filt Rate > 60; Glucose Random 104 mg/dL (60-115); Magnesium 1.6 mg/dL (1.6-2.6); Potassium 3.7 mmol/L (3.3-5.1); Sodium 138 mmol/L (135-145)
--- NOTE | 2024-11-04 07:00 | PC.NURSE ---
Report taken from Deanna Wilson RN at this time.
--- NOTE | 2024-11-04 07:36 | P.PNIM_ITS ---
Subjective Subjective Date of Service: 11/04/24 Interval History: Complaining of left leg pain, denies fever, no chills, no acute issues overnight, tolerating diet with no nausea, no vomiting or abdominal pain. Review of Systems All other system reviewed and are negative. Physical Exam 2 Vital Signs: Vital Signs: Last Vital Signs Temp 97.8 F 11/04/24 05:03 Pulse 81 11/04/24 05:03 Resp 16 11/04/24 05:03 BP 111/70 11/04/24 05:03 Pulse Ox 96 11/04/24 05:03 O2 Del Method Room Air 11/04/24 05:03 BMI result Body Mass Index 22.7 Const: Other: Gen: in no acute distress HEENT: sclera anicteric, moist mucus membranes Neck: supple Lungs: clear to auscultation bilaterally Heart: regular rate and rhythm, no murmurs Abd: soft, non-tender, non-distended Ext: no edema Skin: warm/well-perfused, left leg with one open wound and to surrounding small ulcers ,stitches removed ,no surrounding redness, covered with yellow eschar Neuro: alert and oriented x3, no focal findings Psych: appropriate affect. Objective Data Active Medications Acetaminophen (Acetaminophen 325 Mg Tablet) 650 mg PO Q6H PRN PRN Reason: Pain, Mild 1-3,fever,headache Albuterol Sulfate (Albuterol Sulfate 90 Mcg 8 Gm Inhaler) 1 puff INHALE QID PRN PRN Reason: wheezing Calcium Carbonate (Calcium Carbonate 750 Mg Tab.Chew) 750 mg PO Q4H PRN PRN Reason: Heartburn Ferrous Sulfate (Ferrous Sulfate 324 Mg Tablet.Dr) 324 mg PO DAILY [facility] Hydroxyzine HCl (Hydroxyzine Hcl 50 Mg Tablet) 50 mg PO TID PRN PRN Reason: Anxiety Vancomycin HCl 750 mg/ Sodium (Chloride) 265 mls @ 265 mls/hr IV Q8H [facility] Last Infusion: 11/04/24 05:35 Dose: Infused Documented By: EMILI Magnesium Hydroxide (Milk Of Magnesia 30 Ml Oral.Susp) 30 ml PO DAILY PRN PRN Reason: Constipation Magnesium Oxide (Magnesium Oxide 400 Mg Tablet) 400 mg PO DAILY [facility] Last Admin: 11/03/24 13:49 Dose: 400 mg Documented By: MASTER Melatonin (Melatonin 3 Mg Tablet) 6 mg PO BEDTIME PRN PRN Reason: Insomnia Methadone HCl (Methadone Hcl 20 Mg/2 Ml Oral.Conc) 115 mg PO DAILY [facility] Morphine Sulfate (Morphine Sulfate 4 Mg/Ml Cartridge) 4 mg IVPUSH Q4H PRN; Protocol PRN Reason: Pain, Severe (Pain Scale 7-10) Last Admin: 11/04/24 05:33 Dose: 4 mg Documented By: EMILI Pharmacy Consult (Consult Rx Vancomycin Dosing) 1 each MISCELLANE DAILY PRN PRN Reason: Consult order Rivaroxaban (Rivaroxaban 20 Mg Tablet) 20 mg PO DAILY@1700 [facility] Last Admin: 11/03/24 19:22 Dose: 20 mg Documented By: SCAR Sodium Chloride (0.9 % Sodium Chloride Flush 3 Ml Syringe) 3 ml IVFLUSH QSHIFT [facility] Last Admin: 11/04/24 00:33 Dose: 3 ml Documented By: SCAR Thiamine HCl (Thiamine Hcl 100 Mg Tablet) 100 mg PO DAILY [facility] Last Admin: 11/03/24 13:49 Dose: 100 mg Documented By: MASTER Labs 11/04/24 05:26 11/04/24 05:26 Labs: Laboratory Results - last 24 hr 11/03/24 11/03/24 11/03/24 06:29 09:49 10:09 MCV MCH MCHC RDW Plt Count MPV Absolute Nucleated RBC Nucleated RBC % (auto) ESR 8 PT 21.1 H D INR 1.8 H Anion Gap Estim Creat Clear Calc Estimated GFR Random Glucose Lactic Acid 0.7 Calcium Magnesium C-Reactive Protein 4.35 H Urine Color Yellow Urine Appearance Clear Urine pH 6.5 Ur Specific [place] 1.015 Urine Protein Negative Urine Glucose (UA) Negative Urine Ketones Negative Urine Blood Negative Urine Nitrite Negative Ur Leukocyte Esterase Negative Urine Opiates Screen POSITIVE H Ur Buprenorphine Scrn Not Detected Ur Oxycodone Screen Not Detected Urine Methadone Screen Positive H Urine Fentanyl Screen POSITIVE H Ur Barbiturates Screen Not Detected Ur Phencyclidine Scrn Not Detected Ur Amphetamines Screen Not Detected U Benzodiazepines Scrn Not Detected Urine Cocaine Screen POSITIVE H U Marijuana (THC) Screen Not Detected 11/04/24 05:26 MCV 76.8 L MCH 22.3 L MCHC 29.1 L RDW 26.0 H Plt Count 324 MPV 9.1 L Absolute Nucleated RBC 0.000 Nucleated RBC % (auto) 0.0 ESR PT INR Anion Gap 11 L Estim Creat Clear Calc 133.8 Estimated GFR > 60 Random Glucose 104 Lactic Acid Calcium 7.8 L D Magnesium 1.6 C-Reactive Protein Urine Color Urine Appearance Urine pH Ur Specific [place] Urine Protein Urine Glucose (UA) Urine Ketones Urine Blood Urine Nitrite Ur Leukocyte Esterase Urine Opiates Screen Ur Buprenorphine Scrn Ur Oxycodone Screen Urine Methadone Screen Urine Fentanyl Screen Ur Barbiturates Screen Ur Phencyclidine Scrn Ur Amphetamines Screen U Benzodiazepines Scrn Urine Cocaine Screen U Marijuana (THC) Screen Assessment and Plan (1) Cellulitis of left leg: Status: Acute Plan 34-year-old male with a PMH significant for?continuing polysubstance use disorder with IVDU, endocarditis s/p bioprosthetic tricuspid valve replacement complicated by valve stenosis, septic pulmonary emboli and empyema, hx of DVT and PE noncompliant with Xarelto, cardiomyopathy, recurrent bacteremia and endocarditis, untreated chronic hepatitis-C, anemia, and cirrhosis who presents to the ED from [facility] for evaluation of left lower extremity and scrotal swelling and pain for the past few days. Pt will be admitted to the hospital for treatment and further evaluation left lower extremity cellulitis in the setting of retained sutures and outpatient noncompliance. Left lower extremity cellulitis Sutures removed by General surgery no bleeding noted , noncompliance with follow up, IVDU No sepsis: No tachycardia, tachypnea, fever, or leukocytosis Hx of MRSA bacteremia and IVDU on iv vancomycin, started 11/03/2024, will transition to by mouth doxycycline if no fevers and blood cultures are negative . Wound care consult pending Follow cultures Scrotal swelling Ongoing past few days, minor pain, no significant erythema, UA unremarkable Scrotal ultrasound limited examination due to lack of patient cooperation showed marked scrotal wall thickening, no evidence of testicular mass Hx of DVT/PE Hx of non-compliance with Xarelto U/S of left lower extremity negative for DVT Continue Xarelto and outpatient follow-up with PCP Microcytic anemia Stable, at baseline Continue iron supplementation Polysubstance use disorder Continue methadone Addiction medicine consult Hepatitis-C Chronic, untreated Encourage outpatient treatment Mood disorder Continue sertraline Full Code DVT Prophylaxis: On Xarelto Pt will require continued inpatient hospitalization for treatment and further evaluation of left lower extremity cellulitis Given patient's significant comorbidities, including continued IVDU, endocarditis with tricuspid valve replacement, hx of recurrent bacteremia, and noncompliance with outpatient care, and for monitoring of blood cultures with prior history of MRSA Quality Stroke Does the patient have a stroke diagnosis?: No VTE Prior VTE?: Yes VTE Risk Level:: Medical - moderate - high VTE Device Contraindication: Treatment Not Indicated VTE Drug Contraindication: N/A - Med Ordered
--- NOTE | 2024-11-04 08:10 | MHC.EDTECH ---
pt given breakfast tray, unhappy with meal and verbally abusive to the staff. Additional meal ordered for pt.
--- NOTE | 2024-11-04 08:15 | MHC.EDTECH ---
Pt gived additional tray, unhappy and abusive towards staff.
[2024-11-04 08:27] VITALS: BP 112/67; PULSE 87; RESP 14; TEMP 36.6; O2SAT 100
[2024-11-04] MEDS: Magnesium Oxide 400 MG TABLET PO (09:23)
[2024-11-04] MEDS: Ferrous Sulfate 324 MG TABLET.DR PO (09:23)
[2024-11-04] MEDS: methADONE HCl 20 MG/2 ML ORAL.CONC 115 MG PO (09:31)
--- NOTE | 2024-11-04 10:41 | MHC.EDTECH ---
Pt asked for a sandwich, given one and called me a bitch .
--- NOTE | 2024-11-04 12:00 | PC.NURSE ---
This RN completed pt.'s dressing change as ordered per wound RN
[2024-11-04 12:01] VITALS: BP 123/75; PULSE 86; RESP 16; TEMP 36.9; O2SAT 95
[2024-11-04] MEDS: Thiamine HCL 100 MG TABLET PO (12:05)
[2024-11-04] MEDS: Doxycycline Monohydrate 100 MG CAPSULE PO (12:05)
--- NOTE | 2024-11-04 14:44 | P.DS_ITS ---
DS: Providers Provider Date of Service: 11/04/24 Date of admission: 11/03/24 14:09 Date of discharge: 11/04/24 Primary care physician: [facility] Consults: 11/03/24 13:27 Consult to Wound Care Routine Reason for consultation: Right lower leg wound, hx of IVDU 11/03/24 13:29 Consult to General Surgery Routine Consulting [place] [facility] Reason for consultation: Right LLE stitches since 10/1811/03/24 13:53 Addiction Medicine Routine Consulting Provider: Addiction Covering Reason for consultation: IVDU 11/04/24 09:15 Consult to Wound Care Routine Reason for consultation: left leg wounds DS: Diagnosis Discharge Diagnosis (1) Cellulitis of left leg: Status: Acute DS: Summary Hospital Course Hospital Course: Date of Service: 11/03/24 Attending physician on admission: Janeen Long Chief Complaint: Right lower leg swelling and pain Pt is a 34-year-old male with a PMH significant for?continuing polysubstance use disorder with IVDU, endocarditis s/p bioprosthetic tricuspid valve replacement complicated by valve stenosis, septic pulmonary emboli and empyema, hx of DVT and PE noncompliant with Xarelto, cardiomyopathy, recurrent bacteremia and endocarditis, untreated chronic hepatitis-C, anemia, and cirrhosis who presents to the ED from [facility] for evaluation of left lower extremity and scrotal swelling and pain for the past few days. Pt was previously seen in the ED on 10/18/2024 where he had sutures placed in left lower extremity due to bleeding from varicose veins. Pt also required transfusion of 2 units PRBCs at that time. Pt missed his follow-up appointment to have sutures removed and since that time has had increased redness, pain, and swelling in left lower extremity for the past week. Also complains of scrotal swelling and pain for the past few days. No urinary complaints. Subjective fever and chills. No chest pain/pressure, palpitations. Denies nausea, vomiting, abdominal pain. No shortness a breath or difficulty breathing. Pt reports last used yesterday cocaine and heroin. Reports injects in arms and never and legs. Of note, pt has a long hx of noncompliance with home medications or outpatient care, as well as leaving hospitalist AMA. Additionally, sutures were not removed in the ED due to concerns for recurrent bleeding. In the ED pt was afebrile with vital signs stable and WNL. Labs were significant for CRP elevated at 4.35, otherwise grossly unremarkable and around baseline for pt. No leukocytosis. Chronic microcytic anemia of 8.4/28.1, at baseline. No significant electrolyte abnormalities. Renal function baseline. UA negative for UTI. Tox screen positive for opiates, methadone, fentanyl, and cocaine. X-ray of left tibia and fibula negative for acute osteomyelitis, fracture, or dislocation. Does show diffuse subcutaneous soft tissue anemia and probable ulceration of anterior anthony. Ultrasound of left lower extremity negative for acute DVT or organized fluid collection. Pt was treated with vancomycin and methadone. Pt will be admitted to the hospital for treatment and further evaluation left lower extremity cellulitis in the setting of retained sutures and outpatient noncompliance. Hospital course: 34-year-old male with a PMH significant for?continuing polysubstance use disorder with IVDU, endocarditis s/p bioprosthetic tricuspid valve replacement complicated by valve stenosis, septic pulmonary emboli and empyema, hx of DVT and PE noncompliant with Xarelto, cardiomyopathy, recurrent bacteremia and endocarditis, untreated chronic hepatitis-C, anemia, and cirrhosis who presents to the ED from [facility] walk[facility] clinic for evaluation of left lower extremity and scrotal swelling and pain for the past few days. Pt will be admitted to the hospital for treatment and further evaluation left lower extremity cellulitis in the setting of retained sutures and outpatient noncompliance. Left lower extremity cellulitis, Sutures removed by General surgery no bleeding noted , noncompliance with follow up, IVDU, No sepsis noted initially treated with IV vancomycin, redness significantly improved patient supposed to be seen by wound nurse but he is adamant to leave the hospital against medical advice will discharge him on doxycycline 1 tablet twice daily to finish a total 5 day course of antibiotics so far blood cultures are negative recommend outpatient follow-up at wound clinic appointment given. Scrotal swelling with no significant erythema UA unremarkable ,Scrotal ultrasound limited examination due to lack of patient cooperation showed marked scrotal wall thickening, no evidence of testicular mass Hx of DVT/PE Hx of non-compliance with Xarelto,U/S of left lower extremity negative for DVT recommend to continue Xarelto and follow-up with PCP Microcytic anemia Stable, at baseline,Continue iron supplementation Polysubstance use disorder Continue methadone Hepatitis-C Chronic, untreated,Encourage outpatient treatment. Mood disorderContinue sertraline Time Attestation Discharge Coordination Time (in mins): 40 Quality: Safe Use of Opioids Does Pt have an Active Cancer Diagnosis on the Problem List?: No Quality: Stroke Does the patient have a stroke diagnosis?: No Physical Exam Vital Signs: Vital Signs: Last Vital Signs Temp 98.5 F 11/04/24 12:01 Pulse 86 11/04/24 12:01 Resp 16 11/04/24 12:01 BP 123/75 11/04/24 12:01 Pulse Ox 95 11/04/24 12:01 O2 Del Method Room Air 11/04/24 12:01 BMI result Body Mass Index 22.7 Const: Other: Gen: in no acute distress HEENT: sclera anicteric, moist mucus membranes Neck: supple Lungs: clear to auscultation bilaterally Heart: regular rate and rhythm, no murmurs Abd: soft, non-tender, non-distended Ext: no edema Skin: warm/well-perfused, left leg with one open wound and two surrounding small ulcers ,stitches removed ,no surrounding redness, wound covered with yellow eschar Neuro: alert and oriented x3, no focal findings Psych: appropriate affect. DS: Data Data Completed and Pending Completed studies during hospitalization [Text1]: Procedures Detoxification Services for Substance Abuse Treatment (11/18/21) Insertion of Endotracheal Airway into Trachea, Via Natural or Artificial Opening (03/03/23) Insertion of Infusion Device into Left Basilic Vein, Percutaneous Approach (03/16/23) Insertion of Infusion Device into Superior Vena Cava, Percutaneous Approach (03/03/23) Introduction of Vasopressor into Central Vein, Percutaneous Approach (03/03/23) Respiratory Ventilation, Greater than 96 Consecutive Hours (03/03/23) Ultrasonography of Superior Vena Cava, Guidance (03/03/23) Labs on day of discharge: Laboratory Results - last 24 hr 11/04/24 05:26 WBC 7.2 RBC 3.67 L Hgb 8.2 L Hct 28.2 L MCV 76.8 L MCH 22.3 L MCHC 29.1 L RDW 26.0 H Plt Count 324 MPV 9.1 L Absolute Nucleated RBC 0.000 Nucleated RBC % (auto) 0.0 Sodium 138 Potassium 3.7 Chloride 112 H Carbon Dioxide 19 L Anion Gap 11 L BUN 14 Creatinine 0.71 Estim Creat Clear Calc 133.8 Estimated GFR > 60 Random Glucose 104 Calcium 7.8 L D Magnesium 1.6 Preliminary micro results at discharge 11/03/24 10:09 Blood Culture - Preliminary Blood - Venous No growth after 24 hours. 11/03/24 09:49 Blood Culture - Preliminary Blood - Venous No growth after 24 hours. Discharge Plan Discharge Anticipated Discharge Date/Time: 11/04/24 14:42 Patient Disposition: Left Against Medical Advice Discharge Diagnosis: Left leg cellulitis with leg wound [place] [facility] [place]] - 11/14/24 7:45 am [facility] [Primary Care Provider] - 1 Week Discharge Medications: New doxycycline monohydrate 100 mg Capsule 100 mg PO Q12H Qty: 8 0RF Continued methadone [Methadone Intensol] 10 mg/mL Concentrate 115 mg PO DAILY hydroxyzine HCl 50 mg Tablet 50 mg PO TID PRN (Reason: Anxiety) silver sulfadiazine 1 % cream 1 appl topical Q OTHER DAY thiamine HCl (vitamin B1) [Vitamin B-1] 100 mg Tablet 100 mg PO DAILY albuterol sulfate [Ventolin HFA] 90 mcg/actuation HFA aerosol inhaler 1 puff INHALATION QID PRN (Reason: wheezing) ferrous sulfate 325 mg (65 mg iron) tablet,delayed release (DR/EC) 325 mg PO DAILY magnesium oxide 400 mg magnesium Tablet 400 mg PO DAILY Xarelto 20 mg tablet 20 mg PO DAILY@1700 Discharge Orders: Discharge Order (Routine); Ordered 11/04/24 Ordered By: Janeen Long Diet: Advance to usual diet Activity on Discharge: As tolerated Stand Alone Forms: Patient Portal Discharge page Print Language: Upper Sorbian Care Plan Goals: Take by mouth antibiotic doxycycline 1 tablet twice daily for 4 more days Continue all home medications as before Continue dressing change to left leg and follow-up with wound clinic. Health Concerns: Strongly recommend to abstain from illicit drug use Plan of Treatment: Outpatient follow-up at wound clinic on November 14 Outpatient follow-up with primary care physician. Assessment: As above
--- NOTE | 2024-11-04 14:48 | MHC.CM.PN ---
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
--- NOTE | 2024-11-04 14:49 | PC.NURSE ---
Patient leaving AMA. A&Ox4 and ambulatory. Dr. Long came to bedside to speak to patient about risks of leaving and provided education. IV was removed, Wound supplies and education were given and patient signed AMA form.
== END 2024-11-04 14:52 | disposition left against medical advice (07) | DRG 721 ==
LOC: HO.ED 11:33 → HO.EDOVER 14:15 → HO.S3 11-04 09:31
PROVIDERS: Registered Nurse Emergency; Admitting Provider Student in an Organized Health Care Education/Training Program; Emergency Provider Student in an Organized Health Care Education/Training Program; Visit Provider Hospitalist
DX: T81.41XA Infection following a procedure, superficial incisional surgical site, initial encounter (principal); L03.116 Cellulitis of left lower limb; F11.20 Opioid dependence, uncomplicated; B18.2 Chronic viral hepatitis C; D50.9 Iron deficiency anemia, unspecified; F17.210 Nicotine dependence, cigarettes, uncomplicated; F39 Unspecified mood [affective] disorder; F19.90 Other psychoactive substance use, unspecified, uncomplicated; Z71.6 Tobacco abuse counseling; Z86.718 Personal history of other venous thrombosis and embolism; Z91.199 Patient's noncompliance with other medical treatment and regimen due to unspecified reason; Z91.148 Patient's other noncompliance with medication regimen for other reason; Z95.1 Presence of aortocoronary bypass graft; Z79.01 Long term (current) use of anticoagulants; Z79.899 Other long term (current) drug therapy
CPT/HCPCS: 36415; 73590; 76870; 80048; 80307; 81003; 83605; 83735; 85027; 85610; 85652; 86140; 87040; 93971; 99285; J2270; J3370

== ENCOUNTER → 2024-11-03 09:05 | Outpatient (BNV) | payer MEDICAID, SELFPAY | PROVIDERS: Emergency Provider Student in an Organized Health Care Education/Training Program; Visit Provider Radiology Diagnostic Radiology | DX: R22.42 Localized swelling, mass and lump, left lower limb (principal); N49.2 Inflammatory disorders of scrotum | CPT/HCPCS: 73590; 76870; 93971 ==

== ENCOUNTER → 2024-11-03 14:09 | Outpatient (BNV) | payer MEDICAID, SELFPAY | PROVIDERS: Admitting Provider Student in an Organized Health Care Education/Training Program; Emergency Provider Student in an Organized Health Care Education/Training Program; Visit Provider Student in an Organized Health Care Education/Training Program | DX: L03.116 Cellulitis of left lower limb (principal) | CPT/HCPCS: 99223; 99239; 99499 ==

== ENCOUNTER → 2024-11-03 14:09 | Outpatient (BNV) | payer MEDICAID, SELFPAY | PROVIDERS: Admitting Provider Student in an Organized Health Care Education/Training Program; Emergency Provider Student in an Organized Health Care Education/Training Program; Visit Provider Surgery | DX: I83.892 Varicose veins of left lower extremity with other complications (principal) | CPT/HCPCS: 99222 ==

== ENCOUNTER 2024-12-08 22:51 | Emergency (ER) | payer MEDICAID, SELFPAY ==
--- NOTE | 2024-12-08 | ECG_ITS ---
Test Reason : CHEST PAIN Blood Pressure : */* mmHG Vent. Rate : 85 BPM Atrial Rate : 85 BPM P-R Int : 134 ms QRS Dur : 94 ms QT Int : 260 ms P-R-T Axes : 81 79 0 degrees QTcB Int : 309 ms Normal sinus rhythm Nonspecific T wave abnormality Abnormal ECG When compared with ECG of 13-Oct-2024 18:19, No significant changes seen Referred By: Generic ED Physician Electronically Signed By: VIOLET SULLIVAN
--- NOTE | ~2024-12-08 | XR_ITS ---
CLINICAL HISTORY: chest pain 2 view chest x-ray Comparison: Chest x-ray from 10/10/2024. Findings: Abandoned leads are redemonstrated. These are considered unsafe for MRI. Mild right hilar and/or infrahilar opacities may reflect atelectasis and pneumonitis. Mild emphysematous changes suggested. No pneumothorax or pleural effusion. Imaged mediastinum is unchanged. No interim osseous change; post sternotomy changes are redemonstrated. IMPRESSION: Right hilar opacities of the atelectasis and/or pneumonitis. This document has been electronically signed by: Kenneth Payton MD on 12/09/2024 00:06:40
[2024-12-08 22:59] VITALS: BP 154/102; PULSE 87; O2SAT 98
[2024-12-08 23:03] VITALS: BP 133/55; PULSE 80; RESP 20; TEMP 37.2; O2SAT 95; BMI 22.7
[2024-12-08 23:31] LABS: MANUAL DIFF FLAG NO
[2024-12-08 23:33] LABS: Basophils Percent Auto 0.3 % (0-2); Eosinophils Absolute Auto 0.1 X10*3/uL (0.0-0.4); Eosinophils Percent Auto 1.2 % (0-4); Hematocrit 29.7 % (42.0-52.0); Hemoglobin 8.9 g/dl (14.0-18.0); Imm Gran Abs Auto 0.02 X10*3/uL (0.00-0.03); Imm Gran Pct Auto 0.3 % (0.0-0.4); Lymphocytes Absolute Auto 1.4 X10*3/uL (1.2-4.9); Mean Corpuscular Hemoglobin 21.1 pg (27.0-33.0); Mean Corpuscular Volume 70.4 fL (80.0-98.0); Mean Platelet Volume 8.8 fL (9.4-12.4); Monocytes Absolute Auto 0.6 X10*3/uL (0.1-1.2); Monocytes Percent Auto 9.2 % (2-11); Neutrophils Absolute Auto 4.5 x10*3/uL (2.0-8.3); Platelet Count 255 X10*3/uL (160-400); Red Blood Count 4.22 X10*6/uL (4.60-5.80); White Blood Count 6.6 X10*3/uL (4.8-10.8)
[2024-12-08 23:46] LABS: Alanine Aminotransferase 15 U/L (0-40); Albumin Level 3.3 g/dL (3.5-5.0); Alkaline Phosphatase 275 U/L (39-117); Anion Gap 13 (12-20); Aspartate Amino Transferase 36 U/L (5-37); Bilirubin Total 0.7 mg/dL (0.0-1.0); Blood Urea Nitrogen 16 mg/dL (9-16); Calcium 8.6 mg/dL (8.4-10.2); Carbon Dioxide 20 mmol/L (22-29); Chloride 109 mmol/L (96-108); Creatinine Clr Calc Pharmacy 153.2; Estimated Glomerular Filt Rate > 60; Glucose Random 73 mg/dL (60-115); Potassium 4.2 mmol/L (3.3-5.1); Sodium 138 mmol/L (135-145); Total Protein 7.8 g/dL (6.5-8.0)
[2024-12-09 00:10] LABS: Influenza A PCR POSITIVE (Negative); Influenza B PCR NEGATIVE (Negative); Resp Syncy Virus RNA Qual PCR NEGATIVE (Negative); SARS COV2 PCR INHOUSE NEGATIVE (Negative)
[2024-12-09 05:11] VITALS: RESP 20
--- OUTSIDE RECORDS SUMMARY | 2024-12-09 05:49 | XMS_ITS | Clinical Summary ---
Author Organization [facility] Facility Address [address] [place] [address], [place] [address] Care Team Providers Care Worsted Winder Name Role Phone Unavailable Primary Care Provider Unavailabl e Social History Tobacco Use Types Packs/Day Years Used Date Smoking Tobacco: Never Assessed Sex and Gender Information Value Date Recorded Sex Assigned at Not on file Legal Sex Male 4:58 PM EST Gender Identity Not on file Sexual Orientation Not on file Plan of Treatment Health Maintenance Due Date Last Done Comments Hepatitis B Vaccine (1 of 3 - 19+ 3-dose series) 2007 Influenza Vaccine (#1) 2024 Pneumococcal Vaccine: Pediat rics (0 to 5 Years) and At-Risk Patients (6 to 64 Years) Aged Out No longer eligi ble based on patient's age to complete this topic [place]
--- OUTSIDE RECORDS SUMMARY | 2024-12-09 05:49 | XMS_ITS ---
Author Organization [facility] Address [address] [place] [address] Care Team Providers Care Chemist Pharmaceutical Name Role Phone Nirali Isbell Primary Care Provider UnavailMichael Castanon Jr Unavailable REASON FOR VISIT Patient presents today for ChRONIC HEP C Encounters Encounter Location Date Provider Diagnosis [facility] [address] [place] [address] 09/24/2023 Michael Escamilla Jr PLAN OF TREATMENT No Information
--- OUTSIDE RECORDS SUMMARY | 2024-12-09 05:49 | XMS_ITS | Data Portability ---
Author Organization [facility] [employer] [facility], Main Office Address [address] [place] [address] Care Team Providers Care Balance Weigher Name Role Phone [facility] OTHER Assessment Encounter Date Assessment Date Assessment LastModified by Organization Details LastModified Time 04/09/2023 04/09/2023 04/01/23 wbc 6.8, hgb 9.2, plt 291, na 145, k 3.5, creat 0.9 04/08/23 na 140, k 3.8, creat 0.7 t bili 1.5, alk phos 144, ast/alt 13/7 [email or web address] Not available 04/09/2023 08:41:20 Plan of Treatment Reminders Order Date Submit Date Provider Last Modified By Organization Details Last Modified Time Details Appointments None record ed. Lab None record ed. Referral None record ed. Procedures None record ed. Surgeries None record ed. Imaging None record ed. Medication Orders None record ed. Patient TargetsNo targets recorded. Patient InstructionsNo instructions recorded. Reason for Referral None Reported. Problems Name Problem SNOMED Code Status Onset Date Resolution Date Notes Provider Name and Address Organization Details Recorded Time Septic shock 56821737 Active 2022 Martinez Rendon MD [address], [address], [place], [address], [employer] 3 15:13:19 Infective endocarditis of tricuspid valve 359808178 Active 2022 Martinez Rendon MD [address], [address], [place], [address], [employer] 3 15:13:41 Pulmonary embolism 71062854 Active 2022 Martinez Rendon MD [address], [address], [place], [address], [place] [employer] 3 15:13:48 Chronic hepatitis C 736066680 Active 2022 Martinez Rendon MD [address], [address], [place], [address], [facility] [employer] [facility] 3 15:13:55 Anemia 177497842 Active 2022 Martinez Rendon MD [address], [address], [place], [address], [facility] [employer] [facility] 3 15:14:52 Cirrhosis of liver 65153825 Active 2022 Martinez Rendon MD [address], [address], [place], [address], [facility] [employer] [facility] 3 15:14:58 Congestive heart failure 81275945 Active 2022 Martinez Rendon MD [address], [address], [place], [address], [facility] [employer] [facility] 3 15:15:02 Polysubstance abuse 857195413 Active 2022 Martinez Rendon MD [address], [address], [place], [address], [facility] [employer] [facility] 3 15:15:08 Unsheltered homelessness Active 2022 Martinez Rendon MD [address], [address], [place], [address], [facility] [employer] [facility] 3 15:15:20 Tobacco user 310239823 Active 2022 Martinez Rendon MD [address], [address], [place], [address], [facility] [employer] [facility] 3 15:35:03 Primary insomnia 0570015 Active 2022 Martinez Rendon MD [address], [address], [place], [address], [facility] [employer] [facility] 3 15:34:02 Problem Notes None recorded. Medical Equipment None Reported. Allergies No known drug allergies Medications Not known to be on any medication Vitals None Recorded Social History Question Answer Notes LastModified by Organizat ion Details LastModified Time Tobacco Smoking Status Current Every Day Smoker Martinez Rendon MD [address], [address], [place], [address], [facility] 03/24/2023 15:12:49 What Is Your Level Of Alcohol Consumption? None Hx Of ETOH Information not available 03/24/2023 How Much Tobacco Do You Smoke? 1 PPD Information not available 03/24/2023 Sex: Unknown Functional Status None recorded. Mental Status None recorded. Family History Nothing Reported Notes:N/C Medical History No medical history recorded. Past Encounters Encounter ID Performer Location Encounter Start Date Encounter Closed Date Diagnosis/Indication Diagnosis SNOMED-CT Code Diagnosis ICD10 Code Diagnosis Note [id number] Martinez Rendon MD [facility] on [address] [place] [address] 03/24/2023 15:03:52 03/30/2023 15:17:15 Septic shock 36667648 R65.21 see HPInow onnafcilli n 2 gm q 4 for 26 daysadd probiotic bidmonitor cbcupdate ID with concerns Polysubstance abuse 4452 49913 F19.10 maintained onmethadon e 40 mg qdwill establish with clinicSUDS counselor at facility Infective endocarditis of tricuspid valve 706884155 I33.0 see HPIhx of TV endocardit is s/p bioprosthe tic TVR complicate d by bioprosthe tic valve stenosismo nitor for sxadded to PMHpatient is followed by CT surgery and cardiology at [facility] Pulmonary embolism 94339 003 I26.99 xarelto 20 mg qdmonitor respirator y status Chronic hepatitis C 1283 94383 B18.2 untreated with resultant cirrhosis of liver with hx etohwill refer to GI Cirrhosis of liver 007 K74.69 see above Anemia 023895447 D50.8 appears due to malnutriti on and iron deficiency monitor cbciron studies prndietary consult prn Congestive heart failure 28147473 I50.22 carrying dxmaintain ed on spironolac tone 25 mg qdmonitor respirator y status and need to titrate Unsheltere d homelessness 7827020429 82678 Z59.02 social work professor to be involvedma y be barrier to dischargep atient with repeated AMA discharges added to PMH Tobacco user 307690031 Z 72.0 currently refusing nicotine patchis smoking at facilityco nsidering quitting, encouraged may start patch tomorrow [id number] Martinez Rendon MD [facility] on [address] [place] [id number] 03/25/2023 15:30:14 03/30/2023 15:28:18 Primary insomnia 8139326 F51.01 see HPIwill starttraza done 25 mg qhs prnmonitor for effect and need to titrate Polysubstance abuse 4452 28888 F19.10 methadone 40 mg qdcurrentl y stable at baseline [id number] SCOTTIE Chen [facility] on [address] [place] [id number] 03/30/2023 08:21:03 04/01/2023 10:41:27 Septic shock 55538266 R65.21 nafcillin 2 gm q 4 hrs til 04/19/23moni tor cbcf/u with ID s Polysubstance abuse 4452 36612 F19.10 methadone 40 mg qdf/u with methadone clinicSUDs counseling at facility Infective endocarditis of tricuspid valve 375558221 I33.0 hx of TV endocardit is s/p bioprosthe tic TVR complicate d by bioprosthe tic valve stenosispt notes sob intermitte ntly since TVR a couple of years agowaiting for CXR resultsfol lowed by CT surgery and cardiology at [facility] Pulmonary embolism 02486 003 I26.99 xarelto 20 mg qdmonitor resp status, bleeding risk Chronic hepatitis C 1283 60003 B18.2 untreated with resultant cirrhosis of liver with hx etohreferr ed to GI Cirrhosis of liver 007 K74.69 see above Anemia 907666099 D50.8 appears due to malnutriti on and iron deficiency monitor cbciron studies prndietary consult prn Congestive heart failure 17857656 I50.22 compensate dspironola ctone 25 mg qdmonitor respirator y status and need to titrate Unsheltere d homelessness 4898959566 89634 Z59.02 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 rrier to dischargep atient with repeated AMA discharges Primary insomnia 2055843 F51.01 increase trazodone to 50 mg qhsmonitor for effect [id number] Martinez Rendon MD [facility] on [address] [place] [id number] 03/31/2023 16:07:11 04/03/2023 16:00:10 Polysubstance abuse 229520526 F19.10 see HPImethado ne 40 mg qd currentlyp atient can f/u at methadone clinic for dose adjustment Septic shock 17445370 R6 5.21 nafcillin 2 gm q 4 to complete courserepe at cbc in am Pulmonary embolism 27938 003 I26.99 xarelto 20 mg qdmonitor respirator y statuswith atypical chest pain would consider CT imaging if symptoms changeto ED for acute decompensa tion [id number] Martinez Rendon MD [facility] on [address] [place] [address] 04/03/2023 15:42:16 04/06/2023 16:19:22 Atypical chest pain 650102683 R07.89 exam reassuring question underlying neuropathi c painwill start gabapentin 100 mg tid and followmoni tor need for chest CT depending on change in presentati on Septic shock 64196598 R6 5.21 see HPI with shock and endocardit isnafcilli n 2 gm q 4 for 26 days from admitmonit or cbcupdate ID with concernswb c count reassuring Polysubstance abuse 4452 61611 F19.10 methadone 40 mg qdSUDS counselor at facility Pulmonary embolism 66194 003 I26.99 xarelto 20 mg qdmonitor respirator y statuscont inuedsee above [id number] SCOTTIE Chen [facility] on [address] [place] [id number] 04/06/2023 14:52:36 04/13/2023 16:26:47 Septic shock 40947048 R65.21 nafcillin 2 gm q 4 hrs til 04/19/23moni tor cbcf/u with ID s Polysubstance abuse 4452 63996 F19.10 methadone 40 mg qdf/u with methadone clinicSUDs counseling at facility Infective endocarditis of tricuspid valve 577646658 I33.0 hx of TV endocardit is s/p bioprosthe tic TVR complicate d by bioprosthe tic valve stenosispt notes sob intermitte ntly since TVR a couple of years agonow somewhat worse with abd distension discussed with Dr Rendon, will get abd UL, nurse aware and will orderfollo wed by CT surgery and cardiology at [facility] Pulmonary embolism 78281 003 I26.99 xarelto 20 mg qdmonitor resp status, bleeding risk Chronic hepatitis C 1283 36780 B18.2 untreated with resultant cirrhosis of liver with hx etohreferr ed to GI Cirrhosis of liver K74.69 now with possible ascitesabd UL as aboveincre ase spironolac tone to 50 mg qd (was on 25 mg qd)monitor for worsening sxs Anemia 135023497 D50.8 appears due to malnutriti on and iron deficiency monitor cbciron studies prndietary consult prn Congestive heart failure 48356818 I50.22 increased sobspirono lactone 50 mg qd (as above)anoop tor respirator y status and need to titrate [id number] Martinez Rendon MD [facility] on [address] [place] [id number] 04/07/2023 13:38:54 04/14/2023 09:58:52 Abdominal pain 33959784 R10.31 abd discomfort with distention ultrasound pendingCMP in ammonitor LFTs and need for GI referral Atypical chest pain 1025 23254 R07.89 see abovewill increase gabapentin to 200 mg tid and followmoni tor need for chest CT depending on change in presentati on Septic shock 80223470 R6 5.21 see HPI with shock and endocardit isnafcilli n 2 gm q 4 through 71monitor cbcupdate ID with concernswb c count reassuring [id number] SCOTTIE Chen [facility] on [address] [place] [id number] 04/09/2023 08:34:52 04/22/2023 08:32:51 Infective endocarditis of tricuspid valve 653278307 I33.0 hx of TV endocardit is s/p bioprosthe tic TVR complicate d by bioprosthe tic valve stenosispt notes sob intermitte ntly since TVR a couple of years agowaiting for abd UL to be donefollow ed by CT surgery and cardiology at [facility] Cirrhosis of liver 68580 007 K74.69 now with possible ascitesabd UL as abovespiro nolactone 50 mg qdmonitor for worsening sxs Polysubstance abuse 4452 04736 F19.10 methadone 40 mg qddiscusse d with and will not add narcotic in pt with hx of polysubsta nce abuse - pain appears to be chronic in naturef/u with methadone clinicSUDs counseling at facility Septic shock 83095676 R6 5.21 nafcillin 2 gm q 4 hrs til 04/19/23moni tor cbcf/u with ID s Pulmonary embolism 38944 003 I26.99 xarelto 20 mg qdmonitor resp status, bleeding risk Chronic hepatitis C 1283 84514 B18.2 untreated with resultant cirrhosis of liver with hx etohreferr ed to GI Anemia 127953418 D50.8 appears due to malnutriti on and iron deficiency monitor cbciron studies prndietary consult prn Congestive heart failure 74251885 I50.22 stable todayspiro nolactone 50 mg qd (as above)anoop tor respirator y status and need to titrate Abdominal pain 49848747 R10.31 abd discomfort with distention ultrasound pendingCMP in ammonitor LFTs again on 04/13/23 and need for GI referral Atypical chest pain 1025 90725 R07.89 see abovegabap entin 200 mg tid and followmoni tor need for chest CT depending on change in presentati on [id number] Martinez Rendon MD [facility] on [address] [place] [id number] 04/13/2023 15:29:49 04/22/2023 08:58:15 Polysubstance abuse 176900588 F19.10 maintained onmethadon e 40 mg qdwill write for oxycodone 5 mg q 8 prn breakthrou gh painthis will be discontinu ed at time of dischargep atient not to leave facility with oxycodone Infective endocarditis of tricuspid valve 095008432 I33.0 see HPIhx of TV endocardit is s/p bioprosthe tic TVR complicate d by bioprosthe tic valve stenosisco mplete Ab on 04/15 with ID signing off at this time Pulmonary embolism 96558 003 I26.99 xarelto 20 mg qdmonitor respirator y statushold day prior to paracentes is and day of procedure Chronic hepatitis C 1283 90109 B18.2 untreated with resultant cirrhosis of liver with hx etoh and now significan t asciteswil l refer to GI for further workup and evalwill refer to interventi onal radiology for paracentes iss Cirrhosis of liver 007 K74.69 see above [id number] Martinez Rendon MD [facility] on [address] [place] [id number] 04/15/2023 13:43:11 04/22/2023 10:39:02 Infective endocarditis of tricuspid valve 368673061 I33.0 see HPIhx of TV endocardit is s/p bioprosthe tic TVR complicate d by bioprosthe tic valve stenosisan tibiotic completeID to set time to remove picc line Pulmonary embolism 34650 003 I26.99 xarelto 20 mg qdmonitor respirator y statushold day prior to paracentes is and day of procedure Polysubstance abuse 4452 86792 F19.10 maintained onmethadon e 40 mg qdoxycodon e 5 mg q 8 prn breakthrou gh painthis will be discontinu ed at time of dischargep atient not to leave facility with oxycodone Cirrhosis of liver 007 K70.31 Ascites with known Hep Cuntreated with resultant cirrhosis of liver with hx etoh with significan t asciteswil l refer to GI for further workup and evalwill refer to interventi onal radiology for paracentes is Restlessne ss and agitation 297972407 R45.1 Patient verbally abusive and patronizin g to surroundin g staff and supportref ers to other in dismissive and demeaning waysoften accusing other of lying and being incompeten tfrequentl y telling people to do you job which appears to mean give me everything I want when I want itpatient show complete lack of empathy for othersques tion underlying antisocial personalit y disorderwi ll request psych eval if patient will accept [id number] SCOTTIE Chen [facility] on [address] [place] [id number] 04/23/2023 12:25:55 04/29/2023 07:46:12 Infective endocarditis of tricuspid valve 454698591 I33.0 pt ok to discharge today to homeless shelterhx of TV endocardit is s/p bioprosthe tic TVR complicate d by bioprosthe tic valve stenosisco mpleted Ab on 04/15/23 with ID signing off at this timef/u with cards, pcp Pulmonary embolism 34644 003 I26.99 xarelto 20 mg qd - rx written for #30f/u with pcp Chronic hepatitis C 1283 13496 B18.2 untreated with resultant cirrhosis of liver with hx etoh and now significan t ascitesref erred to GI for further workup and evalpt refused paracentes is when he was sent out to [facility] ED Polysubstance abuse 4452 21829 F19.10 pt received his last dose methadone this morningcon tinue methadone 40 mg qddisconti nue oxycodone todayf/u with methadone clinic as out pt Cirrhosis of liver 007 K74.69 see above Health Concerns Section Related Observation LastModified by Organization Detai ls LastModified Time None Recorded Concern Status LastModified by Organization Details LastModified Time None Recorded Advance Directives Directive None Recorded Payers Encounter Date Sequence Insurance Name Policy Number Policy Dailey Covered Member ID Dailey Member ID Guarantor Name 04/07/2023 1 [place] [facility] Norberto Coriano [id number] Norberto Coriano 04/09/2023 1 [place] [facility] Norberto Coriano [id number] Norberto Coriano 04/13/2023 1 [place] Norberto Coriano [id number] Norberto Coriano 04/15/2023 1 [place] [facility] Norberto Coriano [id number] Norberto Coriano 04/23/2023 1 [place] Norberto Coriano [id number] Norberto Coriano Notes Date Note Type Note Provider Name and Address Organization Details Recorded Time 04/07/2023 text/html Patient is a 32 yo male resident seen for acute rounding with c/o abd pain in my appendix , left chest pain x 2 years, and tailbone pain since the hospital Patient carrying dx of hep C, also with cirrhosis of liver does have increase in abd distention. Exam reassuring . Patient requesting increase in gabapentin Martinez Rendon MD [address] [place] [address], [address], [place], [address], [facility] [employer] 04/07/2023 13:48:54 04/09/2023 text/html pt seen today fo r acute visit. pt complains of chronic pain in rib area where he had his valve replaced and in his coccyx area - both he has had for at least 2 years. was started on gabapentin by and increased to 200 mg tid to help with pain. pt says the only time he feels good and not in pain is for 2-3 hours after he takes his methadone. concern for pt with possible ascites, ordered abd UL on 04/06/23 and not done yet. pt also had cmp which showed normal liver enzymes on 04/08/23. had spironolactone increased to 50 mg qd on 04/06/23 for edema/ascites. Pt initially admit from hospital after presenting with fever after recent prior hospitalization for septic shock, metabolic encephalopathy and respiratory failure requiring intubation with patient leaving hospital AMA with hx of multiple prior AMA discharges. Patient returned with above fever to restart treatment, now on IV nafcillin to complete course. Patient with complaint of chest pain, left sided x 2 years since surgery with chronic right sided rib and back pain. SCOTTIE Chen [address], [address], [place], [address], [employer] 04/09/2023 14:32:40 04/13/2023 text/html Patient is a 32 yo male resident seen for acute rounding with c/o abd pain. Patient carrying dx of hep C, also with cirrhosis of liver increase in abd distention. UL positive for significant ascites. Patient was out to ED over weekend , was given oxycodone, however by report patient refused paracentesis. Patient seen by ID today now cleared to have picc line removed on 04/15 with no return to ID needed at this time. Patient still with c/o pain Martinez Rendon MD [address], [address], [place], [address], [facility] [employer] 04/13/2023 15:45:02 04/15/2023 text/html Patient is a 32 yo male resident seen for acute rounding. Patient carrying dx of hep C, also with cirrhosis of liver increase in ascites. Patient was out to ED over past weekend , was given oxycodone, however by report patient refused paracentesis. Patient followed by ID now completed Ab, with ID to determine when to pull picc line. Patient remains verbally abusive of staff, nursing, CNAs, social work, and kitchen staff. Discussed with therapy. Patient would benefit from rollator as he still requires rest during activity. He is independent with his walker. Patient now completing Ab and cleared by therapy. Barrier to discharge is homelessness which is being addressed by SW. For ascites with known cirrhosis patient has been referred to GI to follow as out patient and to IR for theraputic paracentesis. Martinez Rendon MD [address], [address], [place], [address], [employer] 04/15/2023 14:38:05 04/23/2023 text/html pt seen today fo r discharge summary. pt is discharging to a homeless usp. he has completed his antibiotics on 04/15/23 for septic shock. pt is independent with walker. has been cleared by rehab department. pt was sent out to hospital to have paracentesis but once there he refused it. pt was found to be in an altered state on 04/21/23 in the early evening as were others, (one of which did test positive for fentanyl as that resident was sent to hospital.) urine tox screen was sent out the next day 04/22/23 and so far resulted for cannabinoids, methadone and oxycodone. pt is on methadone and oxycodone currently. pt received his last dose of methadone this morning. Pt initially admit from hospital after presenting with fever after recent prior hospitalization for septic shock, metabolic encephalopathy and respiratory failure requiring intubation with patient leaving hospital AMA with hx of multiple prior AMA discharges. Patient returned with above fever to restart treatment, treated with IV nafcillin to complete course. SCOTTIE Chen [address], [address], [place], [address], [employer] 04/23/2023 13:14:23
--- OUTSIDE RECORDS SUMMARY | 2024-12-09 05:49 | XMS_ITS | Encounter Summary ---
Author Organization [employer] Address [address] [facility] [address] [place] [address] Care Team Providers Care University Extension Specialist Name Role Phone Jin Mack Primary Care Provider Unavail able Nirali Lott Primary Care Provider [phone] Alba So NP Primary Care Provider [phone] Encounter Details Date Type Department Care Team (Late st Contact Info) Description 06/08/2023 Orders Only [facility] [address] [place] [address] Nirali Lott FNP [address] [place] [address] Chronic hepatitis C without hepatic coma (CMS/HCC) (Primary Dx) Social History Tobacco Use Types Packs/Day Years Used Date Smoking Tobacco: Every Day Cigarettes Smokeless Tobacco: Never Alcohol Use Standard Drinks/Week Comments Never 0 (1 standard drink = 0.6 oz pur e alcohol) Depression Answer Date Recorded Patient Health Questionnaire-9 Score 0 06/03/2023 Depression Answer Date Recorded Patient Health Questionnaire-2 Score 0 06/03/2023 Sex and Gender Information Value Date Recorded Sex Assigned at Male 08/18/2022 10:14 AM EDT Legal Sex Male 10:14 AM EDT Gender Identity Male 08/18/2022 10:14 AM EDT Sexual Orientation Straight 08/18/2022 10 :14 AM EDT documented as of this encounter Plan of Treatment Not on file documented as of this encounter Visit Diagnoses Diagnosis Chronic hepatitis C without hepatic coma (CMS/HCC)- Primary documented in this encounter Additional Health Concerns Assessment Noted Time PHQ-9 Depression Total Score: 0 06/03/20 23 10:05 AM EDT documented as of this encounter Care Teams University Extension Specialist Relationship Specialty Start Date End Date Jin Mack AGNP PCP - General Family Medicine 04/24/23 07/08/23 Nirali Lott FNP [address] [place] [address] PCP - General Family Medicine 07/09/23 04/13/24 Alba So NP [address] [place] [address] PCP - General Family Medicine 04/14/24 documented as of this encounter
--- OUTSIDE RECORDS SUMMARY | 2024-12-09 05:49 | XMS_ITS | Encounter Summary ---
Author Organization [employer] Address [address] [facility] [address]t [place] [address] Care Team Providers Care Pharmaceutical Plant Operator Name Role Phone Alba So NP Primary Care Provider [phone] Reason for Visit * Reason Onset Date Comments Hospital Follow-up 09/30/2024 Encounter Details Date Type Department Care Team ([facility] st Contact Info) Description 09/30/2024 Telephone [facility] MEDICINE [address] [place] [address] Alba So NP [address] [place] [address] Hospital Follow-up Social History Tobacco Use Types Packs/Day Years Used Date Smoking Tobacco: Every Day Cigarettes Smokeless Tobacco: Never Alcohol Use Standard Drinks/Week Comments Never 0 (1 standard drink = 0.6 oz pur e alcohol) Depression Answer Date Recorded Patient Health Questionnaire-9 Score 0 06/03/2023 Housing Stability Answer Date Recorded What is your housing situation today? I do not have housing (Staying with others, in a hotel, in a jail, living outside on the street, on a beach, in a car, or in a park 01/01/[address] you li ve. Do you have problems with any of the following? None of the above 01/01/2024 Food Insecurity Answer Date Recorded Within the past 12 months, y ou worried that your food would run out before you got money to buy more: Often true 01/01/2024 Within the past 12 months,th e food you bought just didn't last and you didn't have enough money to get more: Often true Transportation Answer Date Recorded In the past 12 months, has l ack of transportation kept you from medical appts, meetings, work or from getting things needed for daily living? Yes, it has kept me from medical appointments or getting medications. 01/01/2024 Utilities Answer Date Recorded In the past 12 months, has t he electric, gas, oil or water company threatened to shut off services in your home? No 08/03/2023 Depression Answer Date Recorded Patient Health Questionnaire-2 Score 0 06/03/2023 Sex and Gender Information Value Date Recorded Sex Assigned at Male 08/18/2022 10:14 AM EDT Legal Sex Male 10:14 AM EDT Gender Identity Male 08/18/2022 10:14 AM EDT Sexual Orientation Straight 08/18/2022 10 :14 AM EDT documented as of this encounter Miscellaneous Notes * Telephone Encounter - Martinez Coker - 09/30/2024 2:13 PM EST Tc from pt requesting a HDF appt. Hospital: [facility] Date of admission: 09/23/24 Discharge date: 09/29/24 Diagnosed: Pneumonia / SOB / Chest pain *Send message to [facility] Care Coordinators documented in this encounter Plan of Treatment Not on file documented as of this encounter Visit Diagnoses Not on filedocumented in this encounter Additional Health Concerns Assessment Noted Time PHQ-9 Depression Total Score: 0 06/03/20 23 10:05 AM EDT documented as of this encounter Care Teams Pharmaceutical Plant Operator Relationship Specialty Start Date End Date Alba So NP [address] [place] [id number] PCP - General Family Medicine 04/14/24 documented as of this encounter
--- OUTSIDE RECORDS SUMMARY | 2024-12-09 05:49 | XMS_ITS | Encounter Summary ---
Author Organization [employer] Address [address] [facility] 7t [place] [address] Care Team Providers Care Fire Fighter Airport Name Role Phone Nirali Lott Primary Care Provider [phone] Alba So NP Primary Care Provider [phone] Reason for Visit * Reason Onset Date Comments PT1 08/05/2023 Encounter Details Date Type Department Care Team ([facility] Contact Info) Description 08/05/2023 Telephone [facility] MEDICINE [address] [place] [address] Nirali Lott FNP [address] [place] [address] PT1 Social History Tobacco Use Types Packs/Day Years Used Date Smoking Tobacco: Every Day Cigarettes Smokeless Tobacco: Never Alcohol Use Standard Drinks/Week Comments Never 0 (1 standard drink = 0.6 oz pur e alcohol) Depression Answer Date Recorded Patient Health Questionnaire-9 Score 0 06/03/2023 Housing Stability Answer Date Recorded What is your housing situation today? I have kristine ovalles 08/03/[address] you li ve. Do you have problems with any of the following? None of the above 08/03/2023 Food Insecurity Answer Date Recorded Within the past 12 months, y ou worried that your food would run out before you got money to buy more: Never True 08/03/2023 Within the past 12 months,th e food you bought just didn't last and you didn't have enough money to get more: Never True Transportation Answer Date Recorded In the past 12 months, has l ack of transportation kept you from medical appts, meetings, work or from getting things needed for daily living? No 08/03/2023 Utilities Answer Date Recorded In the past [...] encounter Miscellaneous Notes * Telephone Encounter - Lucy Vasquze - 08/05/2023 1:12 PM EDT PT-1 Request Number [id number] is Pending * Telephone Encounter - Sage Telles - 08/05/2023 12:36 PM EDT Tc alanna Manley with [facility] Partner requesting a PT1: Name of facility: [facility] Specialty: Consult possible liver transplant Location: [address] [place] [address] Date: 08/12/2023 Time: 11:00 am fax: n/a wheelchair: no Digital Community Manager: no All future appt's documented in this encounter Plan of Treatment Not on file documented as of this encounter Visit Diagnoses Not on filedocumented in this encounter Additional Health Concerns Assessment Noted Time PHQ-9 Depression Total Score: 0 06/03/20 23 10:05 AM EDT documented as of this encounter Care Teams Fire Fighter [employer] Relationship Specialty Start Date End Date Nirali Lott FNP [address] [place] [address] PCP - General Family Medicine 07/09/23 04/13/24 Alba So NP [address] [place] [address] PCP - General Family Medicine 04/14/24 documented as of this encounter
--- OUTSIDE RECORDS SUMMARY | 2024-12-09 05:49 | XMS_ITS | Encounter Summary ---
Author Organization [employer] [facility] Address [address] [facility] 7[address] [place] [address] Care Team Providers Care C D Stripper Name Role Phone Alba So CATALYST OPERATOR Primary Care Provider [phone] Encounter Details Date Type Department Care Team (Late st Contact Info) Description 11/21/2024 4:00 PM EST Office Visit [facility] [address] [place] [address] Astrid Becker NP [address] [place] [address] History of artificial heart valve (Primary Dx); Mild intermittent asthma, unspecified whether complicated; Endocarditis of tricuspid valve; Cellulitis of left lower extremity; Drug abuse, IV (CMS/[facility]) Social History Tobacco Use Types Packs/Day Years Used Date Smoking Tobacco: Every Day Cigarettes Smokeless Tobacco: Never Alcohol Use Standard Drinks/Week Comments Never 0 (1 standard drink = 0.6 oz pur e alcohol) Depression Answer Date Recorded Patient Health Questionnaire-9 Score 18 10/18/2024 Patient Health Questionnaire-9 Score 18 10/18/2024 Last PHQ-9: Questionnaire Data Not on file 1 Housing Stability Answer Date Recorded What is your housing situation today? I do not have housing (Staying with others, in a hotel, in a penitentiary, living outside on the street, on a [...] Answer Date Recorded Patient Health Questionnaire-2 Score 4 10/18/2024 Sex and Gender Information Value Date Recorded Sex Assigned at Male 08/18/2022 10:14 AM EDT Legal Sex Male 10:14 AM EDT Gender Identity Male 08/18/2022 10:14 AM EDT Sexual Orientation Straight 08/18/2022 10 :14 AM EDT documented as of this encounter Last Filed Vital Signs Vital Sign Reading Time Taken Comments Blood Pressure 136/88 11/21/2024 3:30 PM EST Pulse 100 11/21/2024 3:30 PM EST Temperature 36.6 ??C (97.8 ??F) 11/21/2024 3:30 PM ES T Respiratory Rate 20 11/21/2024 3:30 PM EST Oxygen Saturation 97% 11/21/2024 3:30 PM EST RA Inhaled Oxygen Concentration - - Weight - - Height - - Body Mass Index - - documented in this encounter Progress Notes * Ольга Calderón RN - 11/21/2024 4:00 PM EST Pt reports worsening SOB(noted with exertion), chest discomfort(mainly mid- sternal) x3 days. Pt reports went to [facility] for suture removal and testicular swelling, stayed for three days on medications, when got out, went to [place] detox. Pt reports detox sent to [facility] for electrolyte imbalance/leg, given two abx for lower leg. Pt reports currently out of Xarelto, on for heart valve replacement (out for 2-3 weeks.) Pt reports last used IV drug this morning at 0800, also reports lowered methadone to 40mg (at [facility]), normal dose 115. * Astrid Becker NP - 11/21/2024 4:00 PM EST Subjective: Norberto Marquez is a 34 y.o. male who presents to the office for a sick visit. Last IVDU this morning Changed dressing at 1 pm yesterday HPI Pt presents today because mother told pt received phone call from here Pt has had multiple hospital stays over past month, due to IVDU , complicated lower extremity wound/cellulitis and hx of tricuspid valve replacement Taking abx for lower extremity wound, no increased pain, exudate or new lesionsHas been doing home wound care, Take 3 abx every 8 hours, Was told to see same surgeon for heart valve, but was unable to go to visit Today primary concern is getting out patient medications prescribed, and then pt would like to go to [facility] for admission Patient Active Problem List Diagnosis Alcohol dependence (CMS/HCC) Heroin dependence (CMS/HCC) Ascites Bacteremia Bacterial arthritis (CMS/HCC) Cirrhosis of liver (CMS/HCC) Cocaine dependence ([facility]/HCC) Hepatosplenomegaly Infective endocarditis of tricuspid valve Osteomyelitis (CMS/HCC) Septic pulmonary embolism (CMS/HCC) Tobacco dependence syndrome Viral hepatitis C Anemia, chronic disease Symptomatic anemia Hx of pulmonary embolus Hemorrhage of varicose veins of right lower extremity Abnormal ECG Prolonged QT interval Active intravenous drug use Opioid use disorder Acute respiratory failure (CMS/HCC) LUCERO (acute kidney injury) (CMS/HCC) Anasarca Back pain Chest pain Elevated troponin 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 Endocarditis History of endocarditis Hyperbilirubinemia Hypertension Hypokalemia Hypomagnesemia Hypoxia Drug abuse, IV (CMS/HCC) Intravenous drug user Leukocytosis Osteomyelitis of left hand (CMS/HCC) Osteomyelitis of finger of right hand (CMS/HCC) Pneumonia Polysubstance abuse (CMS/HCC) 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 Steatosis, liver Shortness of breath Sepsis (CMS/HCC) S/P tricuspid valve replacement Right heart failure (CMS/HCC) Heart failure with mildly reduced ejection fraction (CMS/HCC) Rhabdomyolysis Hemorrhage of varicose veins of lower extremity, bilateral Hypervolemia Bilateral lower extremity edema Cellulitis of left lower extremity Review of Systems Constitutional: Negative for activity change and appetite change. Respiratory: Negative for apnea and chest tightness. Gastrointestinal: Negative for abdominal distention and abdominal pain. Genitourinary: Negative for difficulty urinating. Musculoskeletal: Negative for arthralgias. Hematological: Negative for adenopathy. No Known Allergies Objective: Visit Vitals BP 136/88 (BP Location: Left arm, Patient Position: Sitting, BP Cuff Size: Adult) Pulse 100 Temp 97.8 ??F (36.6 ??C) (Temporal) Resp 20 SpO2 97% Comment: RA Smoking Status Every Day Physical Exam Constitutional: General: He is not in acute distress. Appearance: He is ill-appearing. He is not toxic-appearing. Cardiovascular: Rate and Rhythm: Regular rhythm. Heart sounds: Murmur heard. Pulmonary: Breath sounds: Normal breath sounds. Abdominal: General: Abdomen is flat. Skin: Findings: Lesion present. Neurological: Mental Status: He is alert. Mental status is at baseline. Psychiatric: Behavior: Behavior normal. Thought Content: Thought content normal. Assessment/Plan: Problem List Items Addressed This Visit Endocarditis of tricuspid valve Current Assessment & Plan Pt with complicated hx and difficulty with out patient compliance Meds reconciled with [facility] discharge documents and refilled Pt prefers to seek care at [facility] today for ongoing cardiac issues Relevant Medications midodrine (Proamatine) 2.5 MG tablet Drug abuse, IV ([facility]) Current Assessment & Plan Pt reports relapse since discharge due to lower mathdone dose Encouraged ongoing supports for reducing ivdu Cellulitis of left lower extremity Current Assessment & Plan Wound is wrapped and pt is taking abx as prescribed Denies increased pain, exudate erythema or bleeding Nurses into visit for wound care Other Visit Diagnoses History of artificial heart valve - Primary Relevant Medications Xarelto 20 MG tablet spironolactone (Aldactone) 25 MG tablet midodrine (Proamatine) 2.5 MG tablet Mild intermittent asthma, unspecified whether complicated Relevant Medications Ventolin HFA 108 (90 Base) MCG/ACT inhaler Current Outpatient Medications Medication Sig Dispense Refill docusate sodium (Colace) 100 MG capsule Take 1 capsule by mouth if needed at bedtime. ferrous sulfate 325 (65 Fe) MG EC tablet Take 325 mg by mouth with breakfast. furosemide (Lasix) 20 MG tablet Take 20 mg by mouth in the morning. gabapentin (Neurontin) 100 MG capsule Take 200 mg by mouth 3 times daily. HealthyLax 17 g packet MIX 1 PACKET MIXED WITH 8 OUNCES OF FLUID AND DRINK ORALLY ONCE A DAY magnesium oxide (Mag-Ox) 400 (240 Mg) MG tablet Take 1 tablet by mouth 2 times daily. methadone (Dolophine) 10 MG tablet Take 90 mg by mouth Once per day. Take 95 mg by mouth every morning midodrine (Proamatine) 2.5 MG tablet Take 1 tablet (2.5 mg) by mouth 3 times daily. 90 tablet 0 spironolactone (Aldactone) 25 MG tablet Take 2 tablets (50 mg) by mouth Once per day. as directed 30 tablet 0 thiamine (Vitamin B-1) 100 MG tablet Take 1 tablet by mouth Once per day. Ventolin HFA 108 (90 Base) MCG/ACT inhaler INHALE 2 PUFFS USING INHALER EVERY FOUR TO SIX HOURS WHILE AWAKE NEEDED 18 g 5 Xarelto 20 MG tablet Take 1 tablet (20 mg) by mouth with evening meal. 30 tablet 2 No current facility-administered medications for this visit. documented in this encounter Miscellaneous Notes * Assessment & Plan Note - Astrid Becker NP - 11/21/2024 7:07 PM ESTAssociated Problem(s): Cellulitis of left lower extremity Wound is wrapped and pt is taking abx as prescribed Denies increased pain, exudate erythema or bleeding Nurses into visit for wound care * Assessment & Plan Note - Astrid Becker NP - 11/21/2024 7:07 PM ESTAssociated Problem(s): Drug abuse, IV ([facility]) Pt reports relapse since discharge due to lower mathdone dose Encouraged ongoing supports for reducing ivdu * Assessment & Plan Note - Astrid Becker NP - 11/21/2024 7:05 PM ESTAssociated Problem(s): Endocarditis of tricuspid valve Pt with complicated hx and difficulty with out patient compliance Meds reconciled with [facility] discharge documents and refilled Pt prefers to seek care at [facility] today for ongoing cardiac issues documented in this encounter Plan of Treatment Not on file documented as of this encounter Visit Diagnoses Diagnosis History of artificial heart valve- Primary Mild intermittent asthma, unspecified whether complicated Endocarditis of tricuspid valve Cellulitis of left lower extremity Drug abuse, IV ([facility]) documented in this encounter Additional Health Concerns Assessment Noted Time PHQ-9 Depression Total Score: 18 024 11:56 AM EST documented as of this encounter Care Teams C D Stripper Relationship Specialty Start Date End Date Alba oS NP [address] [place] [address] PCP - General Family Medicine 04/14/24 documented as of this encounter
--- OUTSIDE RECORDS SUMMARY | 2024-12-09 05:49 | XMS_ITS | Encounter Summary ---
Author Organization [employer] Address [address] [facility] 7t [place] [address] Care Team Providers Care Managed Care Provider Name Role Phone Alba So GENEVA Primary Care Provider [phone] Encounter Details Date Type Department Care Team (Late st Contact Info) Description 04/26/2024 Orders Only [facility] MEDICINE [address] [place], [place] [id number] Varun Givens, PharmD [address] [place] [address] Social History Tobacco Use Types Packs/Day Years [...] documented as of this encounter Care Teams Managed Care Provider Relationship Specialty Start Date End Date Alba So NP [address] [place] [id number] PCP - General Family Medicine 04/14/24 documented as of this encounter
--- OUTSIDE RECORDS SUMMARY | 2024-12-09 05:49 | XMS_ITS | Encounter Summary ---
Author Organization [employer] Address [address] [facility] 7[address] [place] [address] Care Team Providers Care Glass Technologist Name Role Phone Nirali Lott Primary Care Provider [phone] Alba So NP Primary Care Provider [phone] Reason for Referral * Consultation (Routine) - Closed Specialty Diagnoses / Procedures Referred By Merle calvillo Referred To Contact Hand Surgery Diagnoses Pain in finger of left hand Nirali Lott FNP [address] [place] [address] Phone: tel: fax: [facility] [address] [place] [address] Phone: tel: Referral ID Status Reason Start Date Expiration Date V isits Requested Visits Authorized [id number] Closed Specialty Services Required 12/23/2023 12/22/2024 6 6 Encounter Details Date Type Department Care Team (Late st Contact Info) Description 12/23/2023 Orders Only [facility] [address] [place] [address] Nirali Lott FNP [address] [place] [address] Pain in finger of left hand (Primary Dx) Social History Tobacco Use Types Packs/Day Years Used Date Smoking Tobacco: Every Day Cigarettes Smokeless Tobacco: Never Alcohol Use Standard Drinks/Week Comments Never 0 (1 standard drink = 0.6 oz pur e alcohol) Depression Answer Date Recorded Patient Health Questionnaire-9 Score 0 06/03/2023 Housing Stability Answer Date Recorded What is your housing situation today? I have kristine sing 08/03/[address] you li [...] as of this encounter Plan of Treatment Scheduled Referrals Name Type Priority Associated Diagnoses Orde r Schedule Referral to Hand Surgery Outpatient Referral Routine Pain in finger of left hand Expected: 12/23/2023 (Approximate), Expires: 12/22/2024 documented as of this encounter Visit Diagnoses Diagnosis Pain in finger of left hand- Primary Pain in soft tissues of limb documented in this encounter Additional Health Concerns Assessment Noted Time PHQ-9 Depression Total Score: 0 06/03/20 23 10:05 AM EDT documented as of this encounter Care Teams Glass Technologist Relationship Specialty Start Date End Date Nirali Lott FNP [address] [place] [address] PCP - General Family Medicine 07/09/23 04/13/24 Alba So NP [address] [place] [address] PCP - General Family Medicine 04/14/24 documented as of this encounter
--- OUTSIDE RECORDS SUMMARY | 2024-12-09 05:49 | XMS_ITS | Encounter Summary ---
Author Organization [employer] Address [address] [facility] 7[address] [place] [address] Care Team Providers Care Human Services Manager Name Role Phone Megan Stevenson AIR MOVING TECHNICIAN Primary Care Provider [phone] Jin Mack AGNYani Primary Care Provider Unavail Nirali Diaz AIR MOVING TECHNICIAN Primary Care Provider [phone] Alba So NP Primary Care Provider [phone] Encounter Details Date Type Department Care Team (Late st Contact Info) Description 01/05/2023 Orders Only [facility] [address] [place] [address] Nohemi Greene FNP Social History Tobacco Use Types Packs/Day Years Used Date Smoking Tobacco: Never Smokeless Tobacco: Never Tobacco Cessation:Counseling Given: Not Answered Sex and Gender Information Value Date Recorded Sex Assigned at Male 08/18/2022 10:14 AM EDT Legal Sex Male 10:14 AM EDT Gender Identity Male 08/18/2022 10:14 AM EDT Sexual Orientation Straight 08/18/2022 10 :14 AM EDT COVID-19 Exposure Response Date Recorded In the last 10 days, have yo u been in contact with someone who was confirmed or suspected to have Coronavirus/COVID-19? No / Unsure 01/05/2023 10:11 AM EDT documented as of this encounter Progress Notes * SCOTTIE Padilla - 01/05/2023 10:03 AM EDT Subjective Patient ID: Norberto Marquez is a 32 y.o. male. 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 Presenting today with SOB on exertion. Mom reports he has to stop on every floor to catch his breath (they live on 4[address]). Pt reports the SOB has been going on for months. He was sectioned by mom and was in a program [facility] [place] [facility], now lives at home with mom. Now on 95 mg methadone, Denies use of any other substances. In process of getting Hep C treated. Has not seen cardiology since he was in his program. Reports there was an issue with the heart valve and that it needs to be replaced. No notes from that encounter in chart. Reports worsening SOB and at times feeling afraid going up stairs. Continues to take Xarelto daily.2 weeks ago had 3x episodes of BRBPR, streaks on stool. Denies vomiting or abd pain. Occasional cough, no fever or chills or congestion. The following portions of the chart were reviewed this encounter and updated as appropriate: Problems Review of Systems Constitutional: Positive for fatigue. Negative for chills, diaphoresis and fever. HENT: Negative for congestion and sore throat. Respiratory: Positive for chest tightness and shortness of breath. Gastrointestinal: Positive for blood in stool and diarrhea. Negative for abdominal pain. Musculoskeletal: Negative for myalgias and neck stiffness. Hematological: Bruises/bleeds easily. Objective Physical Exam Constitutional: General: He is not in acute distress. Appearance: Normal appearance. He is not ill-appearing or diaphoretic. HENT: Head: Normocephalic and atraumatic. Nose: Nose normal. Mouth/Throat: Mouth: Mucous membranes are moist. Pharynx: Oropharynx is clear. Eyes: Extraocular Movements: Extraocular movements intact. Comments: Pinpoint pupils b/l Cardiovascular: Rate and Rhythm: Normal rate. Heart sounds: Murmur heard. No friction rub. No gallop. Pulmonary: Effort: Pulmonary effort is normal. Prolonged expiration present. No respiratory distress or retractions. Breath sounds: Decreased air movement present. Examination of the right-lower field reveals wheezing. Examination of the left-lower field reveals wheezing. Wheezing present. Comments: Diminishes bases; pt O2 sat to 78% when ambulatory, pulse stable in low 70s Abdominal: General: Abdomen is flat. Musculoskeletal: General: No swelling. Cervical back: Neck supple. Skin: General: Skin is warm and dry. Neurological: Mental Status: He is oriented to person, place, and time. Procedures Assessment/Plan documented in this encounter Plan of Treatment Not on file documented as of this encounter Procedures Procedure Name Priority Date/Time Associated Diagnosis Comments BLOOD CULTURE (SECOND) Routine 04/13/2023 2:25 PM EDT BLOOD CULTURE (FIRST) Routine 04/13/2023 2:20 PM EDT URINALYSIS, COMPLETE, WITH REFLEX TO CULTURE Routine 03/16/2023 6:50 PM EDT HIGH SENSITIVITY TROPONIN I Routine 03/16/2023 5:18 PM EDT CBC WITH AUTO DIFFERENTIAL Routine 03/16/2023 5:18 PM EDT B TYPE NATRIURETIC PEPTIDE (BNP) Routine 03/16/2023 5:18 PM EDT LIPASE Routine 03/16/2023 5:18 PM EDT LACTIC ACID Routine 03/16/2023 5:18 PM EDT HEPATIC FUNCTION PANEL Routine 03/16/2023 5:18 PM EDT BASIC METABOLIC PANEL Routine 03/16/2023 5:18 PM EDT documented in this encounter Results * Blood Culture (Second) (04/13/2023 2:25 PM EDT) Blood 04/13/2023 2:25 PM EDT 04/13/2023 3:00 PM EDT Comment:Blood Narrative [facility] - 04/18/2023 5:00 PM EDT Blood Culture (Second) No growth after 5 days. Specimen Source: Blood [facility] Exter nal Provider LAB MICROBIOLOGY - GENERAL ORDERABLES Final Result Performing Organization Address [facility] Co de Phone Number [facility] [address] [place] [phone] * Blood Culture (First) (04/13/2023 2:20 PM EDT) Blood 04/13/2023 2:20 PM EDT 04/13/2023 3:00 PM EDT Comment:Blood Narrative [facility] - 04/18/2023 5:00 PM EDT Blood Culture (First) No growth after 5 days. Specimen Source: Blood [facility] Exter nal Provider LAB MICROBIOLOGY - GENERAL ORDERABLES Final Result Performing Organization Address [facility] de Phone Number [facility] [address] [place] [phone] * (ABNORMAL) Urinalysis, Complete, with Reflex to Culture (03/16/2023 6:50 PM EDT) Color Urine Dark Yellow [facility] Appearance Urine Clear [facility] PH 6.5 5.0 - 9.0 [facility] Glucose Urine UA Negative Negative mg/dL [facility] Urine Blood Small (1+)(A) Negative [facility] Specific Dougherty - Urine 1.015 1.005 - 1.025 [facility] Urine Protein 100 (2+)(A) Neg-Trace mg/dL [facility] Urine Ketones Negative Negative mg/dL [facility] Nitrite Urine Positive(A) Negative [facility] Leukocyte Esterase Urine Small (1+)(A) Negative [facility] RBC Urine >20(A) 0 - 2 /HPF [facility] Urine WBC 6-10(A) 0 - 5 /HPF [facility] Urine Squamous Epithelial Cell 0-2 0 - 2 /HPF [facility] Urine Bacteria None Seen None Seen [facility] Hyaline Casts, Urine 0-2 0 - 2 /LPF [facility] 03/16/2023 6:50 PM EDT 03/16/2023 7:08 PM EDT Narrative [facility] - 03/16/2023 7:57 PM EDT Urine, Clean Catch us [facility] External Provider LAB URI NE ORDERABLES Final Result [facility] [address] [place] [address] [phone] * (ABNORMAL) CBC auto differential (03/16/2023 5:18 PM EDT) White Blood Count 11.0(H) 4.8 - 10.8 X10*3/uL [facility] Red Blood Count 4.07(L) 4.60 - 5.80 X10*6/uL [facility] Hemoglobin 9.7(L) 14.0 - 18.0 g/dl [facility] Hematocrit 30.7(L) 42.0 - 52.0 % [facility] Mean Corpuscular Volume 75.4(L) 80.0 - 98.0 fL [facility] Mean Corpuscular Hemoglobin 23.8(L) 27.0 - 33.0 pg [facility] Mean Corpuscular HGB Conc 31.6 31.0 - 36.0 g/dl [facility] Red Cell Distribution Width 31.5(H) 11.0 - 16.0 % [facility] Platelet Count 597(H) 160 - 400 X10*3/uL [facility] Mean Platelet Volume 9.8 9.4 - 12.4 fL [facility] Neutrophils Percent Auto 60.7 45 - 73 % [facility] Imm Gran Pct Auto 2.0(H) 0.0 - 0.4 % [facility] Lymphocytes Percent Auto 24.7 20 - 40 % [facility] Monocytes Percent Auto 10.5 2 - 11 % [facility] Eosinophils Percent Auto 1.1 0 - 4 % [facility] Basophils Percent Auto 1.0 0 - 2 % [facility] NRBC Pct Auto 0.0 0.0 - 0.2 /100WBC [facility] Neutrophils Absolute Auto 6.7 2.0 - 8.3 x10*3/uL [facility] Imm Gran Abs Auto 0.22(H) 0.00 - 0.03 X10*3/uL [facility] Lymphocytes Absolute Auto 2.7 1.2 - 4.9 X10*3/uL [facility] Monocytes Absolute Auto 1.2 0.1 - 1.2 X10*3/uL [facility] Eosinophils Absolute Auto 0.1 0.0 - 0.4 X10*3/uL [facility] Basophils Absolute Auto 0.1 0.0 - 0.2 X10*3/uL [facility] NRBC Abs Auto 0.000 0.0 - 0.012 X10*3/uL [facility] 03/16/2023 5:18 PM EDT 03/16/2023 5:24 PM EDT [facility] External Provider LAB BLO OD ORDERABLES Final Result [facility] [address] [place] [phone] * High Sensitivity Troponin I (03/16/2023 5:18 PM EDT) TROPONIN I HIGH SENSITIVITY 11.4 <3.5 - 35.0 ng/L [facility] Comment:The Coley high sens itivity Troponin-I results should beused in conjunction with other diagnostic information suchas ECG, clinical observations and information, and patientsymptoms to aid in the diagnosis of [place]. 03/16/2023 5:18 PM EDT 03/16/2023 5:24 PM EDT [facility] External Provider LAB BLO OD ORDERABLES Final Result Performing Organization Address [facility] Co de Phone Number [facility] [address] [place] [address] [phone] * (ABNORMAL) B Type Natriuretic Peptide (BNP) (03/16/2023 5:18 PM EDT) Pathologist [facility] B Type Natriuretic Peptide 378(H) <100 pg/mL [facility] Comment:For those patients w ho are being treated with Natrecor(nesiritide, recombinant BNP), BNP testing should beperformed at least two hours post treatment in order toensure that only endogenous levels of BNP are detected. 03/16/2023 5:18 PM EDT 03/16/2023 5:24 PM EDT [facility] External Provider LAB BLO OD ORDERABLES Final Result Performing Organization Address [facility] de Phone Number [facility] [address] [place] [address] [phone] * (ABNORMAL) Lipase (03/16/2023 5:18 PM EDT) [facility] Lipase 168(H) 8 - 78 U/L [facility] 03/16/2023 5:18 PM EDT 03/16/2023 5:24 PM EDT [facility] External Provider LAB BLO OD ORDERABLES Final Result Performing Organization Address [facility] Co de Phone Number [facility] [address] [place] [address] [phone] * (ABNORMAL) Basic Metabolic Panel (03/16/2023 5:18 PM EDT) [facility] Sodium 139 135 - 145 mmol/L [facility] Potassium 3.0(L) 3.3 - 5.1 mmol/L [facility] Chloride 106 96 - 108 mmol/L [facility] Carbon Dioxide 20(L) 22 - 29 mmol/L [facility] Anion Gap 16 12 - 20 [facility] Urea Nitrogen (BUN) 8(L) 9 - 16 mg/dL [facility] Creatinine, Serum 0.74 0.5 - 1.4 mg/dL [facility] Creatinine Clr Calc Pharmacy 131.5 [facility] Comment:eGFR (calculated fro m the MDRD study equation) and eCrCl(calculated from the Cockcroft-Gault equation) are based ondifferent parameters and may not yield comparable results.If eCrCl result is absurd, please check patient'sheight/weight. Estimated Glomerular Filt Rate >60 [facility] Comment:NOTE: For -Am erican individuals, multiply the result by 1.210.Chronic Kidney Disease: Estimated GFR < 60 mL/min/[id number] Kidney Disease: Estimated GFR < 15 mL/min/1.73m2 Glucose 84 60 - 115 mg/dL [facility] Calcium 9.4 8.4 - 10.2 mg/dL [facility] 03/16/2023 5:18 PM EDT 03/16/2023 5:24 PM EDT [facility] External Provider LAB BLO OD ORDERABLES Final Result [facility] [address] [place] [phone] * (ABNORMAL) Hepatic Function Panel (03/16/2023 5:18 PM EDT) Bilirubin, Total 5.9(H) 0.0 - 1.0 mg/dL [facility] Bilirubin, Direct 3.5(H) 0.0 - 0.5 mg/dL [facility] Aspartate Amino Transferase 19 5 - 37 U/L [facility] Alanine Aminotransferase 13 0 - 40 U/L [facility] Total Protein 7.7 6.5 - 8.0 g/dL [facility] Albumin Level 3.9 3.5 - 5.0 g/dL [facility] Alkaline Phosphatase 154(H) 39 - 117 U/L [facility] 03/16/2023 5:18 PM EDT 03/16/2023 5:24 PM EDT [facility] External Provider LAB BLO OD ORDERABLES Final Result Performing Organization Address City/[facility]/ZIP Co de Phone Number [facility] [address] [place] [address] [phone] * Lactic Acid (03/16/2023 5:18 PM EDT) Lactic Acid 1.7 0.5 - 2.0 mmol/L [facility] 03/16/2023 5:18 PM EDT 03/16/2023 5:24 PM EDT [facility] External Provider LAB BLO OD ORDERABLES Final Result Performing Organization Address [facility] Co de Phone Number [facility] [address] [place] [address] [phone] documented in this encounter Visit Diagnoses Not on filedocumented in this encounter Care Teams Human Services Manager Relationship Specialty Start Date End Date Megan Stevenson FNP PCP - General Family Medicine 03/27/22 04/23/23 Jin Mack AGNP PCP - General Family Medicine 04/24/23 07/08/23 Nirali Lott FNP [address] [place] [address] PCP - General Family Medicine 07/09/23 04/13/24 Alba So NP [address] [place] [address] PCP - General Family Medicine 04/14/24 documented as of this encounter
--- OUTSIDE RECORDS SUMMARY | 2024-12-09 05:49 | XMS_ITS | Encounter Summary ---
Author Organization [employer] Address [address] [facility] 7[address] [place] [address] Care Team Providers Care Display Manager Name Role Phone Nirali Lott Primary Care Provider [phone] Alba So NP Primary Care Provider [phone] Reason for Visit * Reason Onset Date Comments Referral 10/16/2023 Encounter Details Date Type Department Care Team ([facility] Contact Info) Description 10/16/2023 Telephone [facility] [address] [place] [address] Nirali Lott FNP [address] [place] [address] Referral Social History Tobacco Use Types Packs/Day Years [...] Miscellaneous Notes * Telephone Encounter - Lucy Vasquez - 10/20/2023 8:09 AM EST Re faxed to office * Telephone Encounter - Lacy Myers - 10/16/2023 10:22 AM EST Tc from [facility] ortho never received referral. documented in this encounter Plan of Treatment Not on file documented as of this encounter Visit Diagnoses Not on filedocumented in this encounter Additional Health Concerns Assessment Noted Time PHQ-9 Depression Total Score: 0 06/03/20 23 10:05 AM EDT documented as of this encounter Care Teams Display Manager Relationship Specialty Start Date End Date Nirali Lott FNP [address] [place] [address] PCP - General Family Medicine 07/09/23 04/13/24 Alba So NP [address] [place] [address] PCP - General Family Medicine 04/14/24 documented as of this encounter
--- OUTSIDE RECORDS SUMMARY | 2024-12-09 05:49 | XMS_ITS | Encounter Summary ---
Author Organization [employer] Address [address] [facility] [address] [place] [address] Care Team Providers Care Psychological Tests Sales Agent Name Role Phone Nirali Lott Primary Care Provider [phone] Alba So NP Primary Care Provider [phone] Reason for Visit * Reason Onset Date Comments PT1 10/02/2023 Encounter Details Date Type Department Care Team ([facility] Contact Info) Description 10/02/2023 Telephone [facility]ICINE [address] [place] [address] Nirali Lott FNP [address] [place] [address] PT1 Social History Tobacco Use Types Packs/Day [...] * Telephone Encounter - Lucy Vasquez - 10/02/2023 11:00 AM EST PT-1 Request Number [id number] is Pending * Telephone Encounter - Christine Mak - 10/02/2023 10:32 AM EST Tc alanna Nancy with [facility] requesting PT1 transportation. Date: 10/20/2022 Time: 10:15 Visits: 12 a year Address: [address] [place] [address] Facility: [facility] Wheel Chair: n/a Ice Cream Freezer Helper Needed: n/a documented in this encounter Plan of Treatment Not on file documented as of this encounter Visit Diagnoses Not on filedocumented in this encounter Additional Health Concerns Assessment Noted Time PHQ-9 Depression Total Score: 0 06/03/20 10:05 AM EDT documented as of this encounter Care Teams Psychological Tests Sales Agent Relationship Specialty Start Date End Date Nirali Lott FNP [address] [place] [address] PCP - General Family Medicine 07/09/23 04/13/24 Alba So NP [address] [place] [address] PCP - General Family Medicine 04/14/24 documented as of this encounter
--- OUTSIDE RECORDS SUMMARY | 2024-12-09 05:49 | XMS_ITS | Encounter Summary ---
Author Organization [employer] Address [address] [facility] 7t [place] [address] Care Team Providers Care Resistor Winder Name Role Phone Alba So GENEVA Primary Care Provider [phone] Encounter Details Date Type Department Care Team (Late st Contact Info) Description 12/08/2024 Orders Only GENERIC EXTERNAL DATA DEPARTMENT Provider, Generic External Data Social History Tobacco Use Types Packs/Day Years [...] with others, in a hotel, in a fci, living outside on the street, on a [...] the past 12 months, has t he [employer], gas, oil or water company threatened to [...] Procedure Name Priority Date/Time Associated Diagnosis Comments HIGH SENSITIVITY TROPONIN I Routine 12/08/2024 11:24 PM EST SARS COV2/INFLUENZA A/B AND RSV RNA QL NAAT Routine 12/08/2024 11:24 PM EST CBC WITH AUTO DIFFERENTIAL Routine 12/08/2024 11:24 PM EST COMPREHENSIVE METABOLIC PANEL Routine 12/08/2024 11:24 PM EST documented in this encounter Results * (ABNORMAL) SARS-CoV-2 RNA, Influenza A/B, and RSV RNA, Ql NAAT (12/08/2024 11:24 PM EST) Influenza A PCR POSITIVE(A) Negative [facility] Influenza B PCR NEGATIVE Negative [facility] Resp Syncy Virus RNA Qual PCR NEGATIVE Negative [facility] SARS COV2 PCR NEGATIVE Negative [facility] Comment:All test results mus t be correlated with clinical findings.Negative results do not preclude SARS-CoV2, influenza Avirus, influenza B virus and/or RSV infectionand should not be used as the sole basis for treatment orother patient management decisions. Negative results must becombined with clinical observations, patient history, andepidemiological information.This test has not been evaluated for monitoring treatment ofinfection.This test has been authorized by the FDA under an EmergencyUse Authorization (EUA) for use by authorized laboratories.Testing performed on the [employer] GeneXpert utilizingreal-time RT-PCR.All SARS CoV2 and positive influenza A/B results arereported to [facility]. 12/08/2024 11:2 4 PM EST 12/08/2024 11:29 PM EST Generic External Data Provider LAB MICROBIOLOGY - GENERAL ORDERABLES Final Result Performing Organization Address [facility] Co de Phone Number [facility] [address] [place] [phone] * High Sensitivity Troponin I (12/08/2024 11:24 PM EST) Pathologist [facility] TROPONIN I HIGH SENSITIVITY 4.0 <3.5 - 35.0 ng/L [facility] Comment:The Coley high sens itivity Troponin-I results should beused in conjunction with other diagnostic information suchas ECG, clinical observations and information, and patientsymptoms to aid in the diagnosis of [place]. 12/08/2024 11:2 4 PM EST 12/08/2024 11:29 PM EST Generic External Data Provider LAB BLOOD ORDERAB LES Final Result Performing Organization Address [facility] de Phone Number [facility] [address] [place] [phone] * (ABNORMAL) Comprehensive Metabolic Panel (12/08/2024 11:24 PM EST) [facility] Sodium 138 135 - 145 mmol/L [facility] Potassium 4.2 3.3 - 5.1 mmol/L [facility] Chloride 109(H) 96 - 108 mmol/L [facility] Carbon Dioxide 20(L) 22 - 29 mmol/L [facility] Anion Gap 13 12 - 20 [facility] Urea Nitrogen (BUN) 16 9 - 16 mg/dL [facility] Creatinine, Serum 0.62 0.5 - 1.4 mg/dL [facility] Creatinine Clr Calc Pharmacy 153.2 [facility] Comment:eGFR (calculated fro m the MDRD study equation) and eCrCl(calculated from the Cockcroft-Gault equation) are based ondifferent parameters and may not yield comparable results.If eCrCl result is absurd, please check patient'sheight/weight. Estimated Glomerular Filt Rate >60 [facility] Comment:Chronic Kidney Disea se: Estimated GFR < 60 mL/min/1.51g7Oboeup Kidney Disease: Estimated GFR < 15 mL/min/1.73m2 Glucose 73 60 - 115 mg/dL [facility] Calcium 8.6 8.4 - 10.2 mg/dL [facility] Bilirubin, Total 0.7 0.0 - 1.0 mg/dL [facility] Aspartate Amino Transferase 36 5 - 37 U/L [facility] Alanine Aminotransferase 15 0 - 40 U/L [facility] Total Protein 7.8 6.5 - 8.0 g/dL [facility] Albumin Level 3.3(L) 3.5 - 5.0 g/dL [facility] Alkaline Phosphatase 275(H) 39 - 117 U/L [facility] 12/08/2024 11:2 4 PM EST 12/08/2024 11:29 PM EST us Generic External Data Provider LAB BLOOD ORDERAB LES Final Result [facility] [address] [place] [phone] * (ABNORMAL) CBC auto differential (12/08/2024 11:24 PM EST) White Blood Count 6.6 4.8 - 10.8 X10*3/uL [facility] Red Blood Count 4.22(L) 4.60 - 5.80 X10*6/uL [facility] Hemoglobin 8.9(L) 14.0 - 18.0 g/dl [facility] Hematocrit 29.7(L) 42.0 - 52.0 % [facility] Mean Corpuscular Volume 70.4(L) 80.0 - 98.0 fL [facility] Mean Corpuscular Hemoglobin 21.1(L) 27.0 - 33.0 pg [facility] Mean Corpuscular HGB Conc 30.0(L) 31.0 - 36.0 g/dl [facility] Red Cell Distribution Width 21.0(H) 11.0 - 16.0 % [facility] Platelet Count 255 160 - 400 X10*3/uL [facility] Mean Platelet Volume 8.8(L) 9.4 - 12.4 fL [facility] Neutrophils Percent Auto 68.0 45 - 73 % [facility] Imm Gran Pct Auto 0.3 0.0 - 0.4 % [facility] Lymphocytes Percent Auto 21.0 20 - 40 % [facility] Monocytes Percent Auto 9.2 2 - 11 % [facility] Eosinophils Percent Auto 1.2 0 - 4 % [facility] Basophils Percent Auto 0.3 0 - 2 % [facility] NRBC Pct Auto 0.0 0.0 - 0.2 /100WBC [facility] Neutrophils Absolute Auto 4.5 2.0 - 8.3 x10*3/uL [facility] Imm Gran Abs Auto 0.02 0.00 - 0.03 X10*3/uL [facility] Lymphocytes Absolute Auto 1.4 1.2 - 4.9 X10*3/uL [facility] Monocytes Absolute Auto 0.6 0.1 - 1.2 X10*3/uL [facility] Eosinophils Absolute Auto 0.1 0.0 - 0.4 X10*3/uL [facility] Basophils Absolute Auto 0.0 0.0 - 0.2 X10*3/uL [facility] NRBC Abs Auto 0.000 0.0 - 0.012 X10*3/uL [facility] 12/08/2024 11:2 4 PM EST 12/08/2024 11:29 PM EST us Generic External Data Provider LAB BLOOD ORDERAB LES Final Result [facility] [address] [place] [phone] documented in this encounter Visit Diagnoses Not on filedocumented in this encounter Additional Health Concerns Assessment Noted Time PHQ-9 Depression Total Score: 18 024 11:56 AM EST documented as of this encounter Care Teams Resistor Winder Relationship Specialty Start Date End Date Alba So NP [address] [place] [address] PCP - General Family Medicine 04/14/24 documented as of this encounter
--- OUTSIDE RECORDS SUMMARY | 2024-12-09 05:49 | XMS_ITS | Encounter Summary ---
Author Organization [employer] Address [address] [facility] 7t [place] [address] Care Team Providers Care Investigator Fraud Name Role Phone Alba So NP Primary Care Provider [phone] Reason for Visit * Reason Comments Transition Of Care (Tcm) Encounter Details Date Type Department Care Team ([facility] st Contact Info) Description 11/21/2024 Patient Outreach [facility] MEDICINE [address] [place] [address] Alba So NP [address] [place] [address] Transition Of Care (Tcm) Social History Tobacco Use Types Packs/Day Years [...] with others, in a hotel, in a long term, living outside on the street, on a [...] as of this encounter Progress Notes * Della Tidwell RN - 11/21/2024 12:36 PM EST 11/21/24 1237 Hospital Discharges and Admission for [facility] Type of Visit Emergency Department Date of Admission/Visit 11/19/24 Date of Discharge 11/19/24 Facility [facility] Diagnosis LEG WOUNDS Disposition Left Without Being Seen * Shirley Mcgarry RN - 11/21/2024 12:36 PM EST Pt left [facility] [place] 11/19/24 AMA due to wait times. T/C to pt for status check. Female states pt not available and does not have a phone. Agrees to advise pt to contact [facility] but states pt does not listen. documented in this encounter Plan of Treatment Not on file documented as of this encounter Visit Diagnoses Not on filedocumented in this encounter Additional Health Concerns Assessment Noted Time PHQ-9 Depression Total Score: 18 024 11:56 AM EST documented as of this encounter Care Teams Investigator Fraud Relationship Specialty Start Date End Date Alba So NP [address] [place] [phone] PCP - General Family Medicine 04/14/24 documented as of this encounter
--- OUTSIDE RECORDS SUMMARY | 2024-12-09 05:49 | XMS_ITS | Encounter Summary ---
Author Organization [employer] Address [address] [facility] 7t [place] [address] Care Team Providers Care Physical Sciences Professor Name Role Phone Nirali Lott Primary Care Provider [phone] Alba So NP Primary Care Provider [phone] Encounter Details Date Type Department Care Team (Late st Contact Info) Description 10/27/2023 Orders Only [facility] [address] [place] [address] Nirali Lott FNP [address] [place] [address] Infective endocarditis of tricuspid valve (Primary Dx) Social History Tobacco Use Types Packs/Day Years Used Date Smoking Tobacco: Every Day Cigarettes Smokeless Tobacco: Never Alcohol Use Standard Drinks/Week Comments Never 0 (1 standard drink = 0.6 oz pur e alcohol) Depression Answer Date Recorded Patient Health Questionnaire-9 Score 0 06/03/2023 Housing Stability Answer Date Recorded What is your housing situation today? I have kristinearturo ovalles 08/03/[address] you [...] t he electric, gas, oil or water [email or web address] threatened to shut off services in your [...] Procedure Name Priority Date/Time Associated Diagnosis Comments CT LIVER 3 PHASE Routine 10/27/2023 4:35 PM EST documented in this encounter Results * CT liver 3 phase (10/27/2023 4:35 PM EST) Anatomical Region Laterality Modality Liver Computed Tomogra phy 10/27/2023 4:35 PM EST Narrative 11/02/2023 11:06 AM EST ? [facility] ?[address] ?[place] [address] ? CT Scan Report ? Signed ? Patient: Norberto Marquez ?MR#: [id number] ? : 1990 ?Acct:[id number] ? Age/Sex: 33 / M ?ADM Date: 10/27/23 ? Loc: HO.CT ? Attending Dr: Randa Chisholm MD ? Ordering Physician: Randa Chisholm MD ?? Date of Service: 10/27/23 ?? Procedure(s): CT liver 3 phase ?? Accession Number(s): [id number] ? cc: Randa Chisholm MD; [facility] ? EXAMINATION: ?? CT ABDOMEN without and WITH CONTRAST ? CLINICAL INFORMATION: ?? Dyspnea and liver mass. ? COMPARISON: ?? Ultrasound abdomen 03/12/2023: The liver is enlarged in size measuring ?? 20 cm. The liver contour is normal. Parenchymal echogenicity is ?? increased. No focal hepatic lesion. ? CT abdomen pelvis 03/02/2023: The liver is normal in size, shape, and ?? attenuation. No focal hepatic lesion or biliary ductal dilatation is ?? present. ? TECHNIQUE: ?? Multidetector volumetric imaging was performed from the superior aspect ?? of the liver through the iliac crests both before as well as following ?? administration of 85 mL of Omnipaque 350. 2 sets of postcontrast scans ?? were obtained, one during the arterial phase and another during the ?? portal venous phase. Sagittal and coronal reformatted images were ?? obtained on the technologist's workstation. ? This CT examination was performed using dose optimization techniques as ?? appropriate, variously including the following: ?? *Automated exposure control ?? *Adjustment of mA and/or kV according to patient size (this includes ?? techniques or standardized protocols for targeted exams where dose is ?? matched to indication/reason for exam; i.e. extremities or head) ?? *Use of iterative reconstruction technique ? DLP: ?? 576 mGy-cm ? FINDINGS: ? LUNG BASES: Bibasilar scarring is present. Mild peribronchial ?? thickening is seen. Small unchanged perifissural 4 mm right lower lobe ?? pulmonary nodule (8:74 compare prior 36:80). Patient is status post ?? median sternotomy and epicardial pacer wires are partially visualized. ? LIVER, GALLBLADDER, AND BILIARY TREE: The liver is enlarged at 19.2 cm ?? in cephalocaudad dimension and demonstrates heterogeneous attenuation ?? both before and after IV contrast with no discrete mass seen. There is ?? no biliary ductal dilatation present. The gallbladder wall is thickened ?? but there is no evidence of radiopaque gallstones or obvious ?? pericholecystic inflammatory changes. Small volume ascites is present ?? around the liver and spleen. ? PANCREAS: Unremarkable. ? SPLEEN: Mild splenomegaly at 13 cm. ? ADRENAL GLANDS: Unremarkable. ? KIDNEYS AND URETERS: The kidneys are normal in size, shape, and ?? attenuation. No hydronephrosis, hydroureter, or calculi seen. No ?? perinephric stranding. ? GASTROINTESTINAL TRACT: The visualized bowel unremarkable. ? ABDOMINAL WALL: No significant hernia is appreciated. ? LYMPH NODES: Shotty retroperitoneal lymph nodes are seen but there is ?? no adenopathy. The largest lymph node is aortocaval measuring 0.7 cm ?? (5:57). ? VASCULAR: The IVC is dilated and there is reflux of contrast into the ?? IVC and hepatic veins suggesting elevated right-sided heart pressure. ? OSSEOUS STRUCTURES: Unremarkable. ? CT/CT liver 3 phase ?? IMPRESSION: ?? 1. Enlarged heterogeneous liver with no discrete mass seen. ?? 2. Small volume ascites. ?? 3. Mild splenomegaly. ?? 4. Dilated IVC with reflux of contrast into the IVC and hepatic veins ?? suggesting elevated right-sided heart pressure. ?? 5. Other incidental findings as described above. ? Fleischner guidelines were followed. ? Dictated By: ?Adrian Aguirre MD ? Signed By: ?<Electronically signed by Adrian Aguirre MD in OV> ? 11/02/23 1101 ? DD/ 1635 ? TD/TT: ? It Risk And Assurance Manager: SS ? Procedure Note Donotsatnaminterpreter, Image - 11/03/[address] [place] [address] [address] Scan Report Signed Patient: Zully Marquez#: [id number] : 1990Acct:[id number] Age/Sex: 33 / MADM Date: 10/27/23 Loc: HO.CT Attending Dr: Randa Chisholm MD Ordering Physician: Randa Chisholm MD Date of Service: 10/27/23 Procedure(s): CT liver 3 phase Accession Number(s): [id number] cc: Randa Chisholm MD; [facility] EXAMINATION: CT ABDOMEN without and WITH CONTRAST CLINICAL INFORMATION: Dyspnea and liver mass. COMPARISON: Ultrasound abdomen 03/12/2023: The liver is enlarged in size measuring 20 cm. The liver contour is normal. Parenchymal echogenicity is increased. No focal hepatic lesion. CT abdomen pelvis 03/02/2023: The liver is normal in size, shape, and attenuation. No focal hepatic lesion or biliary ductal dilatation is present. TECHNIQUE: Multidetector volumetric imaging was performed from the superior aspect of the liver through the iliac crests both before as well as following administration of 85 mL of Omnipaque 350. 2 sets of postcontrast scans were obtained, one during the arterial phase and another during the portal venous phase. Sagittal and coronal reformatted images were obtained on the technologist's workstation. This CT examination was performed using dose optimization techniques as appropriate, variously including the following: *Automated exposure control *Adjustment of mA and/or kV according to patient size (this includes techniques or standardized protocols for targeted exams where dose is matched to indication/reason for exam; i.e. extremities or head) *Use of iterative reconstruction technique DLP: 576 mGy-cm FINDINGS: LUNG BASES: Bibasilar scarring is present. Mild peribronchial thickening is seen. Small unchanged perifissural 4 mm right lower lobe pulmonary nodule (8:74 compare prior 36:80). Patient is status post median sternotomy and epicardial pacer wires are partially visualized. LIVER, GALLBLADDER, AND BILIARY TREE: The liver is enlarged at 19.2 cm in cephalocaudad dimension and demonstrates heterogeneous attenuation both before and after IV contrast with no discrete mass seen. There is no biliary ductal dilatation present. The gallbladder wall is thickened but there is no evidence of radiopaque gallstones or obvious pericholecystic inflammatory changes. Small volume ascites is present around the liver and spleen. PANCREAS: Unremarkable. SPLEEN: Mild splenomegaly at 13 cm. ADRENAL GLANDS: Unremarkable. KIDNEYS AND URETERS: The kidneys are normal in size, shape, and attenuation. No hydronephrosis, hydroureter, or calculi seen. No perinephric stranding. GASTROINTESTINAL TRACT: The visualized bowel unremarkable. ABDOMINAL WALL: No significant hernia is appreciated. LYMPH NODES: Shotty retroperitoneal lymph nodes are seen but there is no adenopathy. The largest lymph node is aortocaval measuring 0.7 cm (5:57). VASCULAR: The IVC is dilated and there is reflux of contrast into the IVC and hepatic veins suggesting elevated right-sided heart pressure. OSSEOUS STRUCTURES: Unremarkable. CT/CT liver 3 phase IMPRESSION: 1. Enlarged heterogeneous liver with no discrete mass seen. 2. Small volume ascites. 3. Mild splenomegaly. 4. Dilated IVC with reflux of contrast into the IVC and hepatic veins suggesting elevated right-sided heart pressure. 5. Other incidental findings as described above. Fleischner guidelines were followed. Dictated By: Adrian Aguirre MD Signed By: <Electronically signed by Adrian Aguirre MD in OV> 11/02/23 1101 DD/ 1635 TD/TT: It Risk And Assurance Manager: [facility] External Provider IMG CT PROCEDURES Final Result documented in this encounter Visit Diagnoses Diagnosis Infective endocarditis of tricuspid valve- Primary documented in this encounter Additional Health Concerns Assessment Noted Time PHQ-9 Depression Total Score: 0 06/03/20 23 10:05 AM EDT documented as of this encounter Care Teams Physical Sciences Professor Relationship Specialty Start Date End Date Nirali Lott FNP [address] [place] [address] PCP - General Family Medicine 07/09/23 04/13/24 Alba So NP [address] [place] [address] PCP - General Family Medicine 04/14/24 documented as of this encounter
--- OUTSIDE RECORDS SUMMARY | 2024-12-09 05:49 | XMS_ITS | Patient Health Record ---
Author Organization [facility] Address [address] [place] [address] Care Team Providers Care Molecular Genetic Pathologist Name Role Phone Nirali Isbell Primary Care Provider Michael Mane Jr Unavailable [phone] REASON FOR REFERRAL No Information SOCIAL HISTORY Sex Assigned At : Social History Observation Description Sex Assigned At Unknown PLAN OF TREATMENT No Information Insurance Providers Payer Name Payer Address Payer Phone Subscriber Number Group Number Insured Name Patient Relationship to Insured Coverage Start Date Coverage End Date [place] [address] [place] [address] [id number] RANDY MYLES Self - patient is the insured
--- OUTSIDE RECORDS SUMMARY | 2024-12-09 05:49 | XMS_ITS | Encounter Summary ---
Author Organization [employer] Address [address] [facility] 7t [place] [address] Care Team Providers Care Contract Post Office Clerk Name Role Phone Alba So NP Primary Care Provider [phone] Reason for Visit * Reason Comments Transition Of Care (Tcm) Encounter Details Date Type Department Care Team ([facility] st Contact Info) Description 11/22/2024 Patient Outreach [facility] MEDICINE [address] [place] [address] Alba So NP [address] [place] [address] Transition Of Care (Tcm) Social History Tobacco [...] with others, in a hotel, in a fdc, living outside on the street, on a [...] as of this encounter Progress Notes * Ino Russ RN - 11/22/2024 10:40 AM EST 11/22/24 1040 Hospital Discharges and Admission for [facility] Type of Visit Emergency Department Date of Admission/Visit 11/22/24 (12:16 am) Date of Discharge 11/22/24 (9:05 am) [facility] Diagnosis CP/SOB Disposition Discharged Home * Beth Fong RN - 11/22/2024 10:40 AM EST Tc to pt to do status check post discharge from on 11/22/24 [facility] [place]B. A woman answered reports pt is not available, advised them to have pt call our office back for any further questions or concerns and ask tos ronak to [place] team nurses. The woman verbalized understanding and no further questions or concerns at this time. documented in this encounter Plan of Treatment Not on file documented as of this encounter Visit Diagnoses Not on filedocumented in this encounter Additional Health Concerns Assessment Noted Time PHQ-9 Depression Total Score: 18 024 11:56 AM EST documented as of this encounter Care Teams Contract Post Office Clerk Relationship Specialty Start Date End Date Alba So NP [address] [place] [phone] PCP - General Family Medicine 04/14/24 documented as of this encounter
--- OUTSIDE RECORDS SUMMARY | 2024-12-09 05:49 | XMS_ITS | Encounter Summary ---
Author Organization [employer] Address [address] [place] [address] 7 [place] [address] Care Team Providers Care Policy Manager Name Role Phone Alba So NP Primary Care Provider [phone] Reason for Visit * Reason Comments Transition Of Care (Tcm) HDF- Unschedule d (denied) Encounter Details Date Type Department Care Team ([facility] st Contact Info) Description 11/18/2024 Patient Outreach [facility] MEDICINE [address] [place] [address] Alba So NP [address] [place] [address] Transition Of Care (Tcm) (HDF- Unscheduled (denied)) Social History Tobacco Use Types Packs/Day Years [...] with others, in a hotel, in a mcc, living outside on the street, on a [...] as of this encounter Miscellaneous Notes * Significant Event - Art Vasquez - 11/18/2024 9:08 AM EST 11/18/24 0854 Hospital Discharges and Admission for [facility] Type of Visit Hospital Admission Date of Admission/Visit 11/12/24 Date of Discharge 11/17/24 Facility [facility] Diagnosis Other psychoactive substance abuse, uncomplicated Cellulitis of left lower limb Endocarditis, valve unspecified Rheumatic tricuspid valve disease, unspecified Endocarditis, valve unspecified Other pulmonary embolism without acute cor pulmonale Disposition Discharged Home Follow-Up Actions Follow-Up Needed Provider appointment Follow-Up Outcome Spoke to Caregiver Initial Contact Date 11/18/24 abdulaziz Garber outbound call to patient for HDF outreach. Patient's name and were confirmed by mother. Mom educated on the importance of follow up with provider following inpatient admission and offered an HDF appt. Mom states patient is currently out on the streets and she has no way of reaching him . She states he should be going back to [facility] but if he gets a hold of her , she will tell him to contact [facility]. documented in this encounter Plan of Treatment Not on file documented as of this encounter Visit Diagnoses Not on filedocumented in this encounter Additional Health Concerns Assessment Noted Time PHQ-9 Depression Total Score: 18 024 11:56 AM EST documented as of this encounter Care Teams Policy Manager Relationship Specialty Start Date End Date Alba So NP [address] [place] [address] PCP - General Family Medicine 04/14/24 documented as of this encounter
--- OUTSIDE RECORDS SUMMARY | 2024-12-09 05:49 | XMS_ITS | Encounter Summary ---
Author Organization [facility] Address [address] [facility] [address] [place] [address] Care Team Providers Care Acid Tank Liner Name Role Phone Alba So NP Primary Care Provider [phone] Reason for Visit * Reason Comments Transition Of Care (Tcm) [facility] Encounter Details Date Type Department Care Team ([facility] Contact Info) Description 11/11/[address] [facility] [address] [place] [address] Alba So NP [address] [place] [address] Transition Of Care (Tcm) ([facility] ) Social History Tobacco Use Types Packs/Day Years [...] * Significant Event - Art Vasquez - 11/11/2024 1:34 PM EST 11/11/24 1329 Hospital Discharges and Admission for [facility] Type of Visit Hospital Admission Date of Admission/Visit 11/07/24 Date of Discharge 11/10/24 Facility [facility] Diagnosis IV drug abuse, Scrotal edema, New onset of congestive heart failure, Opiate withdrawal, Methadone use, Medication nonadherence due to psychosocial problem, Difficult intravenous access, Hematuria, microscopic, Leg wound, left, Hepatitis C, Liver cirrhosis , Cellulitis Disposition Discharged Home Follow-Up Actions Follow-Up Needed Provider appointment Follow-Up Outcome Left Voicemail Initial Contact Date 11/11/24 ROSALES Ricardo placed outbound call to patient for HDF outreach. CC placing call to offer patient with an HDF appointment with provider. No answer at this time. Patient's name and were not confirmed. CC left detailed message educating patient on importance of following up with provider followingan inpatient admission. Provided contact information requesting a call back in order to schedule the HDF appointment. Patient educated via voicemail on extended clinic hours on Mondays and Wednesdays, and Walk-In Urgent Care Located in [facility] of [facility]. Patient provided with after-hours line for [facility], , which offer night time triage service and option to transfer to reception centre manager provider if needed. CC will request Discharge summaries to scan into chart. CC will place additional outreach call within 2-5 business days documented in this encounter Plan of Treatment Not on file documented as of this encounter Visit Diagnoses Not on filedocumented in this encounter Additional Health Concerns Assessment Noted Time PHQ-9 Depression Total Score: 18 024 11:56 AM EST documented as of this encounter Care Teams Acid Tank Liner Relationship Specialty Start Date End Date Alba So NP [address] [place] [id number] PCP - General Family Medicine 04/14/24 documented as of this encounter
--- OUTSIDE RECORDS SUMMARY | 2024-12-09 05:50 | XMS_ITS | Clinical Summary ---
Author Organization [employer] Address [address] [place] [address] Care Team Providers Care Senior Database Programmer Name Role Phone Alba So GENEVA Primary Care Provider [phone] Allergies No known active allergies Medications * This document contains information received from the source organization and may not represent a complete record from that organization. docusate sodium (Colace) 100 MG capsule Take 1 capsule by mouth if needed at bedtime. 10/27/19 23 Active gabapentin (Neurontin) 100 MG capsule Take 200 mg by mouth 3 times daily. Active methadone (Dolophine) 10 MG tablet Take 90 mg by mouth Once per day. Take 95 mg by mouth every morning Active furosemide (Lasix) 20 MG tablet Take 20 mg by mouth in the morning. 08/13/20 23 Active magnesium oxide (Mag-Ox) 400 (240 Mg) MG tablet Take 1 tablet by mouth 2 times daily. 04/01/20 24 Active HealthyLax 17 g packet MIX 1 PACKET MIXED WITH 8 OUNCES OF FLUID AND DRINK ORALLY ONCE A DAY 04/19/20 24 Active ferrous sulfate 325 (65 Fe) MG EC tablet Take 325 mg by mouth with breakfast. 09/29/20 24 Active thiamine (Vitamin B-1) 100 MG tablet Take 1 tablet by mouth Once per day. 09/29/20 24 Active Xarelto 20 MG tabletIndication s:History of artificial heart valve Take 1 tablet (20 mg) by mouth with evening meal. 30 tablet 2 11/21/19 25 Active spironolactone (Aldactone) 25 MG tabletIndication s:History of artificial heart valve Take 2 tablets (50 mg) by mouth Once per day. as directed 30 tablet 11/21/19 25 Active midodrine (Proamatine) 2.5 MG tabletIndication s:History of artificial heart valve Take 1 tablet (2.5 mg) by mouth 3 times daily. 90 tablet 11/21/19 25 025 Active Ventolin HFA 108 (90 Base) MCG/ACT inhalerIndicatio ns:Mild intermittent asthma, unspecified whether complicated INHALE 2 PUFFS USING INHALER EVERY FOUR TO SIX HOURS WHILE AWAKE NEEDED 18 g 5 11/21/19 25 Active spironolactone (Aldactone) 25 MG tablet Take 1 tablet by mouth in the morning. as directed 10/27/19 23 025 Discontinued(Re order (will not trigger notification to Pharmacy)) Ventolin HFA 108 (90 Base) MCG/ACT inhaler INHALE 2 PUFFS USING INHALER EVERY FOUR TO SIX HOURS WHILE AWAKE NEEDED 18 g 5 04/18/20 24 025 Discontinued(Re order (will not trigger notification to Pharmacy)) midodrine (Proamatine) 2.5 MG tablet Take 1 tablet by mouth 3 times daily. 09/29/20 24 025 Discontinued(Re order (will not trigger notification to Pharmacy)) Xarelto 20 MG tablet Take 1 tablet (20 mg) by mouth with evening meal. 30 tablet 2 10/25/19 25 025 Discontinued(Re order (will not trigger notification to Pharmacy)) Active Problems Problem Noted Date Diagnosed Date Cellulitis of left lower extremity 11/21/2024 Assessment & Plan (11/21/2024 7:07 PM EST): Wound is wrapped and pt is taking abx as prescribed Denies increased pain, exudate erythema or bleeding Nurses into visit for wound care Hemorrhage of varicose veins of lower extremity, bilateral 10/25/2024 Assessment & Plan (10/27/2024 7:56 AM EST): Seen in ER on 10/18 and had 2 sutures placed. Discussed with current state of hypervolemia, would pt rather go to the ER to get fluid removed and have stitches removed in the ER due to severe hemorrhaging when removed in clinic previously, needing blood transfusions. Pt agreed that he will go to the ER, but has to go to his aunt's house first. -referred to Vascular Surgery -ER precautions discussed. -Seek medical attention for worsening symptoms Addendum: 10/27/24 7:56 AM Call received from Vascular in regards to referral. They stated they cannot see patient until patient is sober. Patient was seen a month ago and on his visit he was nodding off. Referral cancelled until patient can get sober. Thank you. Hypervolemia 10/25/2024 Assessment & Plan (10/25/2024 2:48 PM EST): Bilateral LE pitting edema, left worse than right. Has been off anticoagulant x2 weeks. Strongly encouraged to go to the ER to get volume removed. Pt agrees but has to go to his aunt's house first. He confirms he will call an ambulance after to go to the ER. -refilled Xarelto 20 MG tablet -ER precautions discussed. -Seek medical attention for worsening symptoms. Bilateral lower extremity edema 10/25/2024 Assessment & Plan (10/25/2024 2:53 PM EST): Bilateral LE pitting edema, left worse than right. Has been off anticoagulant x2 weeks. Needs to have evaluation to r/o DVT. Strongly encouraged to go to the ER to get volume removed. Pt agrees but has to go to his aunt's house first. He confirms he will call an ambulance after to go to the ER. -refilled Xarelto 20 MG tablet -ER precautions discussed. -Seek medical attention for worsening symptoms. Abnormal ECG 10/17/2024 Prolonged QT interval 10/17/2024 Active intravenous drug use 10/17/2024 Assessment & Plan (10/18/2024 4:40 PM EST): Pt with complicated pmh include endocarditis, chf polysubstance abuse and left lower extremity wound, pt today is seeking admission to hospital for medical management and inpatient drug detox treatment, ambulance called and expect called to [facility]. 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 Assessment & Plan (11/21/2024 7:05 PM EST): Pt with complicated hx and difficulty with out patient compliance Meds reconciled with [facility] discharge documents and refilled Pt prefers to seek care at [facility] today for ongoing cardiac issues Endocarditis 10/17/2024 History of endocarditis 10/17/2024 Hyperbilirubinemia 10/17/2024 Hypertension 10/17/2024 Hypokalemia 10/17/2024 Hypomagnesemia 10/17/2024 Hypoxia 10/17/2024 Drug abuse, IV 10/17/2024 Assessment & Plan (11/21/2024 7:07 PM EST): Pt reports relapse since discharge due to lower mathdone dose Encouraged ongoing supports for reducing ivdu Intravenous drug user 10/17/2024 Leukocytosis 10/17/2024 Osteomyelitis of left hand 10/17/2024 Overview (10/17/2024): Left index finger Osteomyelitis of finger of right hand 10/17/2024 Pneumonia 10/17/2024 Polysubstance abuse 10/17/2024 Assessment & Plan (10/25/2024 2:50 PM EST): Pt is interested in a detox program. Encouraged to go to the ER and ask about detox after treatment of varicose vein bleeding and hypervolemia. Pt agrees. -given phone number for Never Use Alone. Prosthetic valve malfunction 10/17/2024 Tricuspid valve vegetation 10/17/2024 Tricuspid valve stenosis 10/17/2024 Steatosis, liver 10/17/2024 Overview (10/17/2024): congestive and HCV Shortness of breath 10/17/2024 Sepsis 10/17/2024 Overview (10/17/2024): He has completed six weeks IV antibiotics (has been on Nafcillin). He has no fever or rash S/P tricuspid valve replacement 10/17/2024 Right heart failure 10/17/2024 Heart failure with mildly reduced ejection fract ion 10/17/2024 Rhabdomyolysis 10/17/2024 Hemorrhage of varicose veins of right lower extr emity 04/20/2024 Assessment & Plan (08/23/2024 2:51 PM EST): Recurrent hx of hemorrhaging varicose veins with multiple hospitalizations for suturing. Sutures overdue x3 days. See suture removal procedure note 08/23/24 -discussed post suture removal care. -ER precautions discussed. Assessment & Plan (04/25/2024 12:48 PM EDT): The elastic bandage on RLE was cut with surgical scissors on the opposite side to the compressive dressing (so not to release the compressed/potentially bleeding area), keeping the skin underneath protected. I left the previously dressed area (with gauzes on) with the old dressings on and trimmed the rest. I put antibiotic ointment on the mildly scoriated area on top of the bandage edge and cover the whole area with elastic bandage. Patient will keep it on until he sees vascular surgery next week. He will change the elastic bandage PRN only, making sure that the gauzed area dressing is always on. Continue antibiotics, and return to clinic if he develops erythema, fever, rash or worsening swelling on RLE. He agreed with POC. Assessment & Plan (04/20/2024 11:22 AM EDT): -during my evaluation, after removing bandage, wound started hemorrhaging and had trouble with hemostasis -given after 3 days without hemostasis, despite pressure bandage, might need surgical intervention -strongly advised pt to call an ambulance when he gets home to be transported to [facility] for stitching as he did not want to be transported directly from the clinic Hx of pulmonary embolus 04/18/2023 Overview (04/18/2023): Treating w/ Xarelto 20 mg daily while at [facility] 03/16/23-04/15/23 (anticipated discharge date) Anemia, chronic disease 10/09/2022 Symptomatic anemia 10/09/2022 Overview (10/09/2022): Acute anemia related to tooth extractions on 10/01/22 while still on xarelto for anticoagulation. Taken to [facility] ED, bleeding gums, not able to stop with pressure Hemoglobin 3 Received 1 prbc transfusion Transferred to [facility] for admission on 10/02/22. Received another transfusion Discharged 10/06/22 Ascites 07/21/2022 Bacteremia 07/21/2022 Overview (04/18/2023): Recurrent bacteremia and endocarditis found 03/04/23. Admitted. Left AMA on 03/14/23 Returned 03/15/23. Admitted again with plan to transfer to [facility], to continue antibiotics until 04/15 to finish total of 6 weeks of antibiotics since first negative blood culture on 03/04. Followup appt [facility] bacteremia on 04/13/23. Finished antibiotic treatment He has abdominal discomfort and ascites and declined going to ER today for paracentesis Stop IV antibiotics (Nafcillin) and pull PICC line on 04/15. Recheck blood culture. No return visit necessary Cirrhosis of liver 07/21/2022 Overview (04/18/2023): 07/20/22 - Not previously noted. Recommend follow-up by GI 04/13/23 - Ascites and hx of Hep C frances that pt may be moving towards ESLD Osteomyelitis 07/21/2022 Overview (10/09/2022): 07/20/22 - Suspected right hand 2nd digit from hand x-ray. recommend IV antibiotics. Consider U/S or CT in future if status worsens 07/20/22 - Pt left hospital AMA, was explained to Pt and mother the risk of if osteomyelitis and bacteremia is not treated with IV antibiotics 07/21/22 - Mother tried to bring Pt back to hospital but he left again early 07/21/22 07/29/22 admitted again for osteomyelitis Assessment & Plan (08/06/2023 8:36 PM EDT): pt with chronic swelling of PIP of left index finger -hx of OM in that finger years ago w chronic pain and swellling No erythema ,no incrase skin temp on exam today From records pt did have suspected OM of right hand 2nd digit in 07/2022 Hospitalization rec to continue ATB as for bacteremia . Left hand XR 06/2022 Periosteal reaction and soft tissue swelling of the second digit are highly suspicious of acute OM --of note in discharge summery there is mention of right 2nd finger OM however XR is of left hand consistent w complaint of pt of left index finger chronic swelling today 07/30/2023 CRP 0.53, cr 1.07, total bili 1.1, AST 38, ALT 31lak phos 368, WBC 6.6 , hb 13.9, platelets 165 04/13/2023 BC X2 Neg -CRP,ESR,uric acid -XR left hand w focus in left index finger- -MRI of left index finger to eval soft tissue involvement --with result may need to consider orthopedic evaluation /ID -f w PCP in no more than 2 to 3 weeks -prescribed today Tylenol 325 mg -advise to not Take more than twice a day prn -alarm signs and symptoms discussed in case worsening symptoms to return to clinic -but seems symptoms are cronic Heroin dependence 06/27/2022 Overview (08/23/2024): Admitted to [facility] for rehab Treated w/ Methadone 40 mg at [facility] 03/16/23-04/15/23 -[facility] 08/23/24 Assessment & Plan (08/23/2024 2:45 PM EST): Admitted to [facility] for rehab Treated w/ Methadone 40 mg at [facility] 03/16/23-04/15/23 -ref[facility] to [facility] 08/23/24 Assessment & Plan (04/26/2024 6:19 PM EDT): -CRS team called to assist with detox placement however patient refused immediate assistance when staff arrived stating he wanted to have an opportunity to retrieve some items from home and feel good before being admitted. -CRS team provided patient with contact information and invited him to return if he changes his mind Hepatosplenomegaly 06/27/2022 Overview (10/09/2022): 07/20/22 - Not previously noted. 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 Blood cultures positive for GBS and required pressor support when he arrived. 07/21/22 - Mother took Pt [place] [facility] since he left [facility] AM. Pt IV drug use while at ED. Unstable. Chest x-ray positive for opacities consistent with pneumonia, WBC elevated, still having bacteremia. Left hospital AMA as well on 07/21/22. Emphasized to Pt risk to life if infection was not treated. Septic pulmonary embolism 01/01/2021 Overview (10/09/2022): 07/16/22-07/20/22 Pt hx of pulmonary septic embolic that required drainage earlier in 2021. On recent admission D-Dimer was elevated and CT angio chest showed bilateral PE and septic emboli. started Heparin drip Tobacco dependence syndrome 01/01/2021 Viral hepatitis C 01/01/2021 Overview (04/18/2023): Care managed by GI No known treatment or fibrosis score as of 04/13/23 [facility] [place] Assessment & Plan (08/06/2023 8:36 PM EDT): Hep C active complicated w decompensated cirrhosis with ascitis Hep C to start tx following now w GI at [facility] per pt Assessment & Plan (06/03/2023 2:07 PM EDT): Patient not sure if he received a referral to ID for hep c treatment or not. I will place a referral to our [facility] hep c team. Encounters * This document contains information received from the source organization and may not represent a complete record from that organization. Date Type Department Care Team Description 12/08/2024 Orders Only GENERIC EXTERNAL DATA DEPARTMENT Provider, Generic External Data 11/22/2024 Patient Outreach [facility] MEDICINE [address] [place] [address] Alba So NP Transition Of Care (Tcm) 11/21/2024 4:00 PM EST Office Visit [facility] WALKIN [address] [address] Astrid Becker NP History of artificial heart valve (Primary Dx); Mild intermittent asthma, unspecified whether complicated; Endocarditis of tricuspid valve; Cellulitis of left lower extremity; Drug abuse, IV (CMS/HCC) 11/21/2024 Patient Outreach [address] [address] Alba So NP Transition Of Care (Tcm) 11/18/2024 Patient Outreach [address] [address] Alba So NP Transition Of Care (Tcm) (HDF- Unscheduled (denied)) 11/11/2024 Patient Outreach [address] [address] Alba So NP Transition Of Care (Tcm) (HDF-LVM ) 11/03/2024 Orders Only GENERIC EXTERNAL DATA DEPARTMENT Provider, Generic External Data 10/25/2024 2:20 PM EST [facility] [address] [address] Nighat Galloway MD Hemorrhage of varicose veins of lower extremity, bilateral (Primary Dx); Hypervolemia, unspecified hypervolemia type; Polysubstance abuse (CMS/[facility]); Bilateral lower extremity edema 10/24/2024 Patient Outreach [address] [phone] Dariusz Walsh Recovery Supports 10/19/2024 Orders Only GENERIC EXTERNAL DATA DEPARTMENT Provider, Generic External Data 10/18/2024 11:45 AM EST Office Visit [address] [address] Astrid Bekcer NP History of exposure to communicable disease (Primary Dx); Active intravenous drug use 10/18/2024 Orders Only GENERIC EXTERNAL DATA DEPARTMENT Provider, Generic External Data 10/18/2024 Travel 10/17/[address] [phone] Tina Johnston MA Chart Prep 10/15/2024 Orders Only GENERIC EXTERNAL DATA DEPARTMENT Provider, Generic External Data 10/13/2024 Orders Only GENERIC EXTERNAL DATA DEPARTMENT Provider, Generic External Data 10/11/2024 Patient Outreach [address] [address] Alba So NP Transition Of Care (Tcm) (HDF Scheduled) 10/10/2024 Patient Outreach [address] [address] Alba So NP Transition Of Care (Tcm) (ED Visit) 10/10/2024 Orders Only GENERIC EXTERNAL DATA DEPARTMENT Provider, Generic External Data 10/05/[address] [address] Alba So NP 09/30/2024 Patient Outreach [address] [address] Alba So NP 09/30/2024 Patient Outreach [address] [address] Alba So NP Transition Of Care (Tcm) (HDF- LVM ) 09/30/[address] [address] Alba So NP Hospital Follow-up 09/30/2024 Patient Outreach [address] [address] Alba So NP Transition Of Care (Tcm) (HDF - Unscheduled) 09/26/2024 Patient Outreach [facility] [address] [place] [address] Alba So NP Error (VOID this visit) 09/26/2024 Patient Outreach [address] [address] Alba So NP Transition Of Care (Tcm) (HDF unscheduled) 09/23/2024 Orders Only GENERIC EXTERNAL DATA DEPARTMENT Provider, Generic External Data 09/22/[address] [address] Alba So NP Med Refill 09/13/2024 Orders Only GENERIC EXTERNAL DATA DEPARTMENT Provider, Generic External Data from Last 3 Months Immunizations Name Administration Dates Next Due Hep A, Adult 12/03/2017 Influenza injectable quadrivalent preservative f ree 07/27/2020 Influenza, IIV3, injectable 07/27/2020 Pneumococcal Polysaccharide PPSV23 06/12/2017, TD (adult), 2 Lf tetanus tox oid, preservative free, adsorbed 12/03/2017 Td (adult), unspecified 12/03/2017 Tdap 12/14/2017 Social History Tobacco Use Types Packs/Day Years Used Date Smoking Tobacco: Every Day Cigarettes Smokeless Tobacco: Never Tobacco Cessation:Ready to Q uit: Not Asked; Counseling Given: Not Answered Alcohol Use Standard Drinks/Week Comments Never 0 [...] with others, in a hotel, in a detention, living outside on the street, on a [...] Orientation Straight 08/18/2022 10 :14 AM EDT Last Filed Vital Signs Vital Sign Reading Time Taken Comments Blood Pressure 136/88 11/21/2024 3:30 PM EST Pulse 100 11/21/2024 3:30 PM EST Temperature 36.6 ??C (97.8 ??F) 11/21/2024 3:30 PM ES T Respiratory Rate 20 11/21/2024 3:30 PM EST Oxygen Saturation 97% 11/21/2024 3:30 PM EST RA Inhaled Oxygen Concentration - - Weight 72.1 kg (159 lb) 10/25/2024 2:23 PM EST Height 167.6 cm (5' 6 ) 10/18/2024 11:55 AM EST Body Mass Index 25.66 10/18/2024 11:55 AM EST Plan of Treatment Health Maintenance Due Date Last Done Comments Lipid Panel 1988 Family Planning (PISQ) 2003 Hepatitis B Vaccines (1 of 3 - 19+ 3-dose series) 2007 Hepatitis A Vaccines (2 of 2 - Risk 2-dose series) 06/02/2018 12/03/2017 Pneumococcal Vaccine: Pediatrics (0 to 5 Years) and At-Risk Patients (6 to 49) Years) (2 of 2 - PCV) 06/12/2018 06/12/2017, 04/06/2017 COVID-19 Vaccine ( - 2023-2 5 season) 2024 Influenza Vaccine (#1) 2024 0, 07/27/2020 SDOH Screening 12/31/2024 01/01/2024 Depression Monitoring (PHQ-9) 04/17/2025, 10/18/2024 Alcohol/Substance Use Screening 10/18/2025 10/18/2024 Depression Screening 10/18/2025 10/18/2024, 10/18/2024 Tobacco Screening 10/18/2025 10/18/2024 DTaP/Tdap/Td Vaccines (2 - T d or Tdap) 12/14/2027 12/14/2017, 12/03/2017, 12/03/2017 Zoster Vaccines (1 of 2) 2038 RSV Patients and Patients Aged 60 years or older (1 - 1-dose 75+ series) 2063 HIV Screening Completed 04/08/2024 HIB Vaccines Aged Out No longer eligi ble based on patient's age to complete this topic HPV Vaccines Aged Out No longer eligi ble based on patient's age to complete this topic IPV Vaccines Aged Out No longer eligi ble based on patient's age to complete this topic Meningococcal Vaccine Aged Out No paul chandu eligible based on patient's age to complete this topic RSV under 20 months Aged Out No longe r eligible based on patient's age to complete this topic Rotavirus Vaccines Aged Out No longer eligible based on patient's age to complete this topic Procedures Procedure Name Priority Date/Time Associated Diagnosis Comments HIGH SENSITIVITY TROPONIN I Routine 12/08/2024 11:24 PM EST COMPREHENSIVE METABOLIC PANEL Routine 12/08/2024 11:24 PM EST CBC WITH AUTO DIFFERENTIAL Routine 12/08/2024 11:24 PM EST SARS COV2/INFLUENZA A/B AND RSV RNA QL NAAT Routine 12/08/2024 11:24 PM EST US SCROTUM Routine 11/03/2024 3:30 PM EST XR TIBIA FIBULA 2 VIEWS LEFT Routine 11/03/2024 10:18 AM EST DRUG MONITOR, PANEL 1, SCREEN, URINE Routine 11/03/2024 10:09 AM EST URINALYSIS WITH REFLEX MICROSCOPIC Routine 11/03/2024 10:09 AM EST US VENOUS DUPLEX LE LT Routine 10:00 AM EST LACTIC ACID Routine 11/03/2024 9:49 AM EST PROTHROMBIN TIME-INR Routine 11/03/2024 9:49 AM EST SED RATE BY MODIFIED WESTERGREN Routine 11/03/2024 6:29 AM EST C-REACTIVE PROTEIN Routine 11/03/2024 6: 29 AM EST CBC Routine 11/03/2024 6:29 AM EST BASIC METABOLIC PANEL Routine 11/03/2024 6:29 AM EST HEMOGLOBIN + HEMATOCRIT Routine 10/19/2024 5:47 AM EST DRUG MONITOR, PANEL 1, SCREEN, URINE Routine 10/18/2024 9:28 PM EST OBSX1 Routine 10/18/2024 7:01 PM EST XR CHEST 1 VIEW Routine 10/18/2024 5:59 PM EST BLOOD CULTURE (SECOND) Routine 5:49 PM EST LACTIC ACID Routine 10/18/2024 5:41 PM EST BLOOD CULTURE (FIRST) Routine 10/18/2024 5:41 PM EST RED BLOOD COUNT Routine 10/18/2024 5:14 PM EST TYPE AND SCREEN Routine 10/18/2024 5:14 PM EST PATHOLOGIST REVIEW - CBC Routine 10/18/2024 4:02 PM EST COMPREHENSIVE METABOLIC PANEL Routine 10/18/2024 4:02 PM EST CBC WITH AUTO DIFFERENTIAL Routine 10/18/2024 4:02 PM EST CBC WITH AUTO DIFFERENTIAL Routine 10/15/2024 9:26 AM EST CREATINE KINASE, TOTAL Routine 5:41 PM EST CBC WITH AUTO DIFFERENTIAL Routine 10/13/2024 5:41 PM EST COMPREHENSIVE METABOLIC PANEL Routine 10/13/2024 5:41 PM EST URINALYSIS, COMPLETE, WITH REFLEX TO CULTURE Routine 10/13/2024 5:41 PM EST ETHANOL Routine 10/13/2024 5:41 PM EST DRUG MONITOR, PANEL 1, SCREEN, URINE Routine 10/13/2024 5:41 PM EST CTA CHEST PE PROTOCAL Routine 10/10/2024 7:48 AM EST LACTIC ACID Routine 10/10/2024 6:[address] SOFT TISSUE NECK W CONTRAST Routine 10/10/2024 6:19 AM EST HIGH SENSITIVITY TROPONIN I Routine 10/10/2024 4:32 AM EST B TYPE NATRIURETIC PEPTIDE (BNP) Routine 10/10/2024 4:31 AM EST COMPREHENSIVE METABOLIC PANEL Routine 10/10/2024 4:31 AM EST CBC WITH AUTO DIFFERENTIAL Routine 10/10/2024 4:31 AM EST XR CHEST 2 VIEWS Routine 10/10/2024 4:15 AM EST GLUCOSE, WHOLE BLOOD Routine 09/23/2024 5:09 AM EST D DIMER HIGH SENSITIVITY Routine 09/23/2024 3:31 AM EST CREATINE KINASE, TOTAL Routine 3:31 AM EST COMPREHENSIVE METABOLIC PANEL Routine 09/23/2024 3:31 AM EST LACTIC ACID Routine 09/23/2024 3:31 AM EST B TYPE NATRIURETIC PEPTIDE (BNP) Routine 09/23/2024 3:31 AM EST HIGH SENSITIVITY TROPONIN I Routine 09/23/2024 3:31 AM EST APTT Routine 09/23/2024 3:31 AM EST PROTHROMBIN TIME-INR Routine 09/23/2024 3:31 AM EST CBC WITH AUTO DIFFERENTIAL Routine 09/23/2024 3:31 AM EST SARS COV2/INFLUENZA A/B AND RSV RNA QL NAAT Routine 09/23/2024 3:31 AM EST TYPE AND SCREEN Routine 09/23/2024 3:[address] ABDOMEN PELVIS WO CONTRAST Routine 09/13/2024 10:01 AM EST TYPE AND SCREEN Routine 09/13/2024 6:40 AM EST HEMOGLOBIN + HEMATOCRIT Routine 09/13/2024 6:40 AM EST HIGH SENSITIVITY TROPONIN I Routine 09/13/2024 5:03 AM EST CREATINE KINASE, TOTAL Routine 4 5:03 AM EST BASIC METABOLIC PANEL Routine 09/13/2024 5:03 AM EST DRUG MONITOR, PANEL 1, SCREEN, URINE Routine 09/13/2024 5:03 AM EST CREATINE KINASE, TOTAL Routine 4 2:05 AM EST MAGNESIUM Routine 09/13/2024 2:05 AM EST BASIC METABOLIC PANEL Routine 09/13/2024 2:05 AM EST HEPATIC FUNCTION PANEL Routine 2:05 AM EST SARS COV2/INFLUENZA A/B AND RSV RNA QL NAAT Routine 09/13/2024 2:05 AM EST HIV 1/2 ANTIGEN/ANTIBODY, FOURTH GENERATION W/RFL Routine 04/08/2024 11:52 AM EDT Hepatitis C virus infection without hepatic coma, unspecified chronicity from Last 3 Months or Most Recently Relevant to Health Maintenance Results * High Sensitivity Troponin I (12/08/2024 11:24 PM EST) Only the most recent of4 resultswithin the time period is included. Pathologist [facility] TROPONIN I HIGH SENSITIVITY 4.0 <3.5 - 35.0 ng/L [facility] Comment:The Coley high sens itivity Troponin-I results should beused in conjunction with other diagnostic information suchas ECG, clinical observations and information, and patientsymptoms to aid in the diagnosis of HI. 12/08/2024 11:2 4 PM EST 12/08/2024 11:29 PM EST us Generic External Data Provider LAB BLOOD ORDERAB LES Final Result [facility] [address] [place] [address] [phone] * (ABNORMAL) SARS-CoV-2 RNA, Influenza A/B, and RSV RNA, Ql NAAT (12/08/2024 11:24 PM EST) Only the most recent of3 resultswithin the time period is included. Pathologist [facility] Influenza A PCR POSITIVE(A) Negative [facility] Influenza B PCR NEGATIVE Negative [facility] Resp Syncy Virus RNA Qual PCR NEGATIVE Negative [facility] SARS COV2 PCR NEGATIVE Negative [facility] Comment:All test results mus t [...] use by authorized laboratories.Testing performed on the [employer] GeneXpert utilizingreal-time RT-PCR.All SARS CoV2 and positive influenza A/B results arereported to [facility]. 12/08/2024 11:2 4 PM EST 12/08/2024 11:29 PM EST us Generic External Data Provider LAB MICROBIOLOGY - GENERAL ORDERABLES Final Result [facility] [address] [place] [address] [phone] * (ABNORMAL) CBC auto differential (12/08/2024 11:24 PM EST) Only the most recent of6 resultswithin the time period is included. White Blood Count 6.6 4.8 - 10.8 X10*3/uL [facility] Red Blood Count 4.22(L) 4.60 - 5.80 X10*6/uL [facility] Hemoglobin 8.9(L) 14.0 - 18.0 g/dl [facility] Hematocrit 29.7(L) 42.0 - 52.0 % [facility] Mean Corpuscular Volume 70.4(L) 80.0 - 98.0 fL [facility] Mean Corpuscular Hemoglobin 21.1(L) 27.0 - 33.0 pg [facility] Mean Corpuscular HGB Conc 30.0(L) 31.0 - 36.0 g/dl [facility] Red Cell Distribution Width 21.0(H) 11.0 - 16.0 % [facility] Platelet Count 255 160 - 400 X10*3/uL [facility] Mean Platelet Volume 8.8(L) 9.4 - 12.4 fL [facility] Neutrophils Percent Auto 68.0 45 - 73 % [facility] Imm Gran Pct Auto 0.3 0.0 - 0.4 % [facility] Lymphocytes Percent Auto 21.0 20 - 40 % [facility] Monocytes Percent Auto 9.2 2 - 11 % [facility] Eosinophils Percent Auto 1.2 0 - 4 % [facility] Basophils Percent Auto 0.3 0 - 2 % [facility] NRBC Pct Auto 0.0 0.0 - 0.2 /100WBC [facility] Neutrophils Absolute Auto 4.5 2.0 - 8.3 x10*3/uL [facility] Imm Gran Abs Auto 0.02 0.00 - 0.03 X10*3/uL [facility] Lymphocytes Absolute Auto 1.4 1.2 - 4.9 X10*3/uL [facility] Monocytes Absolute Auto 0.6 0.1 - 1.2 X10*3/uL [facility] Eosinophils Absolute Auto 0.1 0.0 - 0.4 X10*3/uL [facility] Basophils Absolute Auto 0.0 0.0 - 0.2 X10*3/uL [facility] NRBC Abs Auto 0.000 0.0 - 0.012 X10*3/uL [facility] 12/08/2024 11:2 4 PM EST 12/08/2024 11:29 PM EST us Generic External Data Provider LAB BLOOD ORDERAB LES Final Result [facility] [address] [place] [phone] * (ABNORMAL) Comprehensive Metabolic Panel (12/08/2024 11:24 PM EST) Only the most recent of5 resultswithin the time period is included. Sodium 138 135 - 145 mmol/L [facility] Potassium 4.2 3.3 - 5.1 mmol/L [facility] Chloride 109(H) 96 - 108 mmol/L [facility] Carbon Dioxide 20(L) 22 - 29 mmol/L [facility] Anion Gap 13 12 - 20 [facility] Urea Nitrogen (BUN) 16 9 - 16 mg/dL [facility] Creatinine, Serum 0.62 0.5 - 1.4 mg/dL [facility] Creatinine Clr Calc Pharmacy 153.2 [facility] Comment:eGFR (calculated fro m the MDRD study equation) and eCrCl(calculated from the Cockcroft-Gault equation) are based ondifferent parameters and may not yield comparable results.If eCrCl result is absurd, please check patient'sheight/weight. Estimated Glomerular Filt Rate >60 [facility] Comment:Chronic Kidney Disea se: Estimated GFR < 60 mL/min/1.54p9Ejcytu Kidney Disease: Estimated GFR < 15 mL/min/1.73m2 Glucose 73 60 - 115 mg/dL [facility] Calcium 8.6 8.4 - 10.2 mg/dL [facility] Bilirubin, Total 0.7 0.0 - 1.0 mg/dL [facility] Aspartate Amino Transferase 36 5 - 37 U/L [facility] Alanine Aminotransferase 15 0 - 40 U/L [facility] Total Protein 7.8 6.5 - 8.0 g/dL [facility] Albumin Level 3.3(L) 3.5 - 5.0 g/dL [facility] Alkaline Phosphatase 275(H) 39 - 117 U/L [facility] 12/08/2024 11:2 4 PM EST 12/08/2024 11:29 PM EST us Generic External Data Provider LAB BLOOD ORDERAB LES Final Result [facility] [address] [place] [address] [phone] * US Scrotum (11/03/2024 3:30 PM EST) Anatomical Region Laterality Modality Body Ultrasound 11/03/2024 3:30 PM EST Narrative 11/03/2024 3:54 PM EST ? [facility] ?[address] ?[place] [address] ? Ultrasound Report ? Signed ? Patient: Coriano,Norberto ?MR#: [id number] ? : 1990 ?Acct:[id number] ? Age/Sex: 34 / M ?ADM Date: 11/03/24 ? Loc: [facility] ?[facility]UR[facility]-2 ? Attending Dr: Janeen Long MD ? Ordering Physician: Jenelle Meza ?? Date of Service: 11/03/24 ?? Procedure(s): US scrotum ?? Accession Number(s): [id number] ? cc: Jenelle Meza; [facility] ? EXAMINATION: US SCROTUM ? HISTORY: Scrotal swelling. ? COMPARISONS: Comparison is made with the prior examination dated ?? 04/15/2021. ? FINDINGS: ??Real-time grayscale ultrasound imaging of the scrotum was ?? performed. The examination is limited by lack of patient cooperation. ? RIGHT TESTICLE: ??The right testis measures 3.4 x 2.5 x 2.2 cm and ?? demonstrates normal homogeneous echotexture. ??No masses are seen. ??The ?? right testis demonstrates normal color Doppler flow. ? RIGHT EPIDIDYMIS: Normal in size, shape, and vascularity. There is an ?? epididymal head cyst measuring 5 x 4 x 7 mm. ? LEFT TESTICLE: ??The left testis measures 3.5 x 2.4 x 2.4 cm and ?? demonstrates normal homogeneous echotexture. ??No masses are seen. ? Doppler evaluation of the left testis was not possible due to lack of ?? patient cooperation. ? LEFT ??EPIDIDYMIS: Normal in size, shape, and vascularity. ? VARICOCELE: None. ? HYDROCELE: No significant hydrocele is seen. ? OTHER COMMENTS: There is marked scrotal skin thickening. ? US/US scrotum ?? IMPRESSION: ??Limited examination due to lack of patient cooperation. ?? Marked scrotal wall thickening. No evidence of a testicular mass. ? Electronically signed by: ??Earl Miller MD ??11/03/2024 03:51 PM EST ?? RP ? Dictated By: ?Earl Miller MD ? Signed By: ?<Electronically signed by Earl Miller MD in OV> ?11/03/24 1551 ? DD/ 1530 ? TD/TT: 11/03/24 1547 ? [employer] Shop Mechanic: ? Procedure Note Donotsatnaminterpreter, Image - 11/03/2024 [place] [address] Ultrasound Report Signed Patient: Zully Marquez#: [id number] : 1990Acct:[id number] Age/Sex: 34 / MADM Date: 11/03/24 Loc: [facility]: Janeen Long MD Ordering Physician: Jenelle Meza Date of Service: 11/03/24 Procedure(s): US scrotum Accession Number(s): [id number] cc: Jenelle Meza; [facility] EXAMINATION: US SCROTUM HISTORY: Scrotal swelling. COMPARISONS: Comparison is made with the prior examination dated 04/15/2021. FINDINGS: Real-time grayscale ultrasound imaging of the scrotum was performed. The examination is limited by lack of patient cooperation. RIGHT TESTICLE: The right testis measures 3.4 x 2.5 x 2.2 cm and demonstrates normal homogeneous echotexture. No masses are seen. The right testis demonstrates normal color Doppler flow. RIGHT EPIDIDYMIS: Normal in size, shape, and vascularity. There is an epididymal head cyst measuring 5 x 4 x 7 mm. LEFT TESTICLE: The left testis measures 3.5 x 2.4 x 2.4 cm and demonstrates normal homogeneous echotexture. No masses are seen. Doppler evaluation of the left testis was not possible due to lack of patient cooperation. LEFT EPIDIDYMIS: Normal in size, shape, and vascularity. VARICOCELE: None. HYDROCELE: No significant hydrocele is seen. OTHER COMMENTS: There is marked scrotal skin thickening. US/US scrotum IMPRESSION: Limited examination due to lack of patient cooperation. Marked scrotal wall thickening. No evidence of a testicular mass. Electronically signed by: Earl Miller MD 11/03/2024 03:51 PM EST RP Dictated By: Earl Miller MD Signed By: <Electronically signed by Earl Miller MD in OV> 11/03/24 1551 DD/ 1530 TD/TT: 11/03/24 1547 [employer] Shop Mechanic: [facility] External Provider IMG US PROCEDURES Final Result * XR Tibia Fibula 2 Views Left (11/03/2024 10:18 AM EST) Anatomical Region Laterality Modality Lower Extremities, Lower Leg Left Rad iographic Imaging 11/03/2024 10:1 8 AM EST Narrative 11/03/2024 11:08 AM EST ? [facility] ?[address] ?[place] [address] ?XRay Report ? Signed ? Patient: Norberto Marquez ?MR#: [id number] ? : 1990 ?Acct:[id number] ? Age/Sex: 34 / M ?ADM Date: 11/03/24 ? Loc: [facility].ED ? Attending Dr: ? Ordering Physician: Tasneem Rojas NP ?? Date of Service: 11/03/24 ?? Procedure(s): XR tibia fibula LT 2V ?? Accession Number(s): [id number] ? cc: [facility]; Tasneem Rojas NP ? EXAMINATION: ?? XR TIBIA AND FIBULA, LEFT ? CLINICAL INFORMATION: ?? Wound, rule out osteomyelitis. ? COMPARISON: ?? None available. ? TECHNIQUE: ?? AP and lateral views of the left tibia and fibula were obtained. ? FINDINGS: ?? Normal bone mineralization. No fracture, dislocation, or suspicious ?? bone lesion. No focal osteopenia or evidence of hernia bone change. No ?? periostitis. ?? Imaged joints appear normal. ? Soft tissues demonstrate diffuse subcutaneous edema. The discrete ?? ulceration is not identified on this exam but may involve the anterior ?? anthony. ? XR/XR tibia fibula LT 2V ?? IMPRESSION: ? 1. No radiographic evidence of osteomyelitis. No fracture or ?? dislocation. ?? 2. Diffuse subcutaneous soft tissue edema. Probable ulceration anterior ?? anthony. ? Electronically signed by: ??Cory Krishnan MD ??11/03/2024 11:05 AM EST RP ? Dictated By: ?Cory Krishnan MD ? Signed By: ?<Electronically signed by Cory Krisnhan MD in OV> ?11/03/24 1105 ? DD/ 1018 ? TD/TT: 11/03/24 1056 ? [employer] Shop Mechanic: ? Procedure Note Donotuseinterpreter, Image - 11/03/2024 [place] [address] XRay Report Signed Patient: Zully Marquez#: [id number] : 1990Acct:[id number] Age/Sex: 34 / MADM Date: 11/03/24 Loc: HO.ED Attending Dr: Ordering Physician: Tasneem Rojas NP Date of Service: 11/03/24 Procedure(s): XR tibia fibula LT 2V Accession Number(s): [id number] cc: [facility]; Tasneem Rojas NP EXAMINATION: XR TIBIA AND FIBULA, LEFT CLINICAL INFORMATION: Wound, rule out osteomyelitis. COMPARISON: None available. TECHNIQUE: AP and lateral views of the left tibia and fibula were obtained. FINDINGS: Normal bone mineralization. No fracture, dislocation, or suspicious bone lesion. No focal osteopenia or evidence of hernia bone change. No periostitis. Imaged joints appear normal. Soft tissues demonstrate diffuse subcutaneous edema. The discrete ulceration is not identified on this exam but may involve the anterior anthony. XR/XR tibia fibula LT 2V IMPRESSION: 1. No radiographic evidence of osteomyelitis. No fracture or dislocation. 2. Diffuse subcutaneous soft tissue edema. Probable ulceration anterior anthony. Electronically signed by: Cory Krishnan MD 11/03/2024 11:05 AM EST Dictated By: Cory Krishnan MD Signed By: <Electronically signed by Cory Krishnan MD in OV> 11/03/24 1105 DD/ 1018 TD/TT: 11/03/24 1056 [employer] Shop Mechanic: [facility] External Provider IMG XR PROCEDURES Edited Result - Final * (ABNORMAL) Drug Monitoring, Panel 1, Screen, Urine (11/03/2024 10:09 AM EST) Only the most recent of4 resultswithin the time period is included. Opiate Screen Urine POSITIVE(A) Not Detect [facility] Comment:Opiate cut-off is 30 0 ng/mL.Positive results are unconfirmed and should not be used fornon-medical purposes. Barbiturates, Urine Not Detected Not Detect [facility] Comment:Barbiturate cut-off is 200 ng/mL.Positive results are unconfirmed and should not be used fornon-medical purposes. Phencyclidine Screen Urine Not Detected Not Detect [facility] Comment:Phencyclidine cut-of f is 25 ng/mL.Positive results are unconfirmed and should not be used fornon-medical purposes. Amphetamine Screen Urine Not Detected Not Detect [facility] Comment:Amphetamine cut-off is 1000 ng/mL.Positive results are unconfirmed and should not be used fornon-medical purposes. Benzodiazepines Screen Urine Not Detected Not Detect [facility] Comment:Benzodiazepine cut-o ff is 200 ng/mL.Positive results are unconfirmed and should not be used fornon-medical purposes. Cocaine Screen Urine POSITIVE(A) Not Detect [facility] Comment:Cocaine cut-off is 3 00 ng/mL.Positive results are unconfirmed and should not be used fornon-medical purposes. Cannabinoid Screen Urine Not Detected Not Detect [facility] Comment:Cannabinoid cut-off is 50 ng/mL.Positive results are unconfirmed and should not be used fornon-medical purposes. Methadone Screen, Urine Positive(A) Not Detect ng/mL [facility] Comment:Methadone cut-off is 300 ng/mL.Positive results are unconfirmed and should not be used fornon-medical purposes. FENTANYL URINE POSITIVE(A) Not Detect [facility] Comment:Fentanyl cut-off is 1 ng/mL.Positive results are unconfirmed and should not be used fornon-medical purposes. Oxycodone Urine Screen Not Detected Not Detect ng/mL [facility] Comment:Oxycodone cut-off is 100 ng/mL.Positive results are unconfirmed and should not be used fornon-medical purposes. Buprenorphine Screen Not Detected Not Detect ng/mL [facility] Comment:Buprenorphine cut-of f is 5 ng/mL.Positive results are unconfirmed and should not be used fornon-medical purposes. 11/03/2024 10:0 9 AM EST 11/03/2024 10:14 AM EST us Generic External Data Provider LAB URINE ORDERAB LES Final Result Performing Organization Address City/State/[facility] [[email or web address]] Co de Phone Number [facility] [address] [place] [phone] * Urinalysis w/reflex microscopic (11/03/2024 10:09 AM EST) Color Urine Yellow [facility] Appearance Urine Clear [facility] PH 6.5 5.0 - 9.0 [facility] Glucose Urine UA Negative Negative mg/dL [facility] Urine Blood Negative Negative [facility] Specific [place] - Urine 1.015 1.005 - 1.025 [facility] Urine Protein Negative Neg-Trace mg/dL [facility] Urine Ketones Negative Negative mg/dL [facility] Nitrite Urine Negative Negative [facility] Leukocyte Esterase Urine Negative Negative [facility] 11/03/2024 10:0 9 AM EST 11/03/2024 10:14 AM EST Narrative [facility] - 11/03/2024 10:22 AM EST [id number], Clean Catch us Generic External Data Provider LAB URINE ORDERAB LES Final Result [facility] [address] [place] [phone] * US VENOUS DUPLEX LE LT (11/03/2024 10:00 AM EST) Anatomical Region Laterality Modality Abdomen Ultrasound 11/03/2024 10:0 0 AM EST Narrative 11/03/2024 10:40 AM EST ? [facility] ?[address] ?[place] [address] ? Ultrasound Report ? Signed ? Patient: Jimmy,Norberto ?MR#: [id number] ? : 1990 ?Acct:[id number] ? Age/Sex: 34 / M ?ADM Date: 11/03/24 ? Loc: HO.ED ? Attending Dr: ? Ordering Physician: Tasneem Rojas NP ?? Date of Service: 11/03/24 ?? Procedure(s): US venous duplex LE LT ?? Accession Number(s): [id number] ? cc: [facility]; Tasneem Rojas NP ? EXAMINATION: ?? US DOPPLER VENOUS LOWER EXTREMITY, LEFT ? CLINICAL INFORMATION: ?? Pain, swelling and erythema, left lower extremity ? COMPARISON: ?? Ultrasound venous lower extremities dated August 22, 2024 ? TECHNIQUE: ?? Color-flow Doppler deep venous system imaging with spectral analysis ?? and compression Doppler were performed on the left lower extremity. ? FINDINGS: ?? Respiratory variation, normal compression and augmented flow are noted ?? throughout the left lower extremity. The visualized common femoral ?? vein, superficial femoral vein, profunda femoral vein, popliteal vein ?? and midcalf peroneal and posterior tibial venous segments show no ?? evidence of deep venous thrombosis. ? There is no Mauricio's cyst. ? Prominent, 3 cm lymph nodes with a fatty hilum in the inguinal regions. ?? Edema pattern throughout the left lower extremity without fluid ?? collections. ? US/US venous duplex LE LT ?? IMPRESSION: ?? No acute deep venous thrombosis involving the left lower extremity. ?? Edema pattern throughout the left lower extremity. ?? No organized fluid collections. ? Electronically signed by: ??Rito Hernandez MD ??11/03/2024 10:37 AM ?? EST RP ? Dictated By: ?Rito Philip MD ? Signed By: ?<Electronically signed by Rito Gamino MD in OV> ? 11/03/24 1037 ? DD/ 1000 ? TD/TT: 11/03/24 1011 ? Body Shop Mechanic: ? Procedure Note Donotsatnaminterpreter, Image - 11/03/[address] [address] Ultrasound Report Signed Patient: Zully Marquez#: [id number] : 1990Acct:[id number] Age/Sex: 34 / MADM Date: 11/03/24 Loc: HO.ED Attending Dr: Ordering Physician: Tasneem Rojas NP Date of Service: 11/03/24 Procedure(s): US venous duplex LE LT Accession Number(s): [id number] cc: [facility]; Tasneem Rojas NP EXAMINATION: US DOPPLER VENOUS LOWER EXTREMITY, LEFT CLINICAL INFORMATION: Pain, swelling and erythema, left lower extremity COMPARISON: Ultrasound venous lower extremities dated August 22, 2024 TECHNIQUE: Color-flow Doppler deep venous system imaging with spectral analysis and compression Doppler were performed on the left lower extremity. FINDINGS: Respiratory variation, normal compression and augmented flow are noted throughout the left lower extremity. The visualized common femoral vein, superficial femoral vein, profunda femoral vein, popliteal vein and midcalf peroneal and posterior tibial venous segments show no evidence of deep venous thrombosis. There is no Mauricio's cyst. Prominent, 3 cm lymph nodes with a fatty hilum in the inguinal regions. Edema pattern throughout the left lower extremity without fluid collections. US/US venous duplex LE LT IMPRESSION: No acute deep venous thrombosis involving the left lower extremity. Edema pattern throughout the left lower extremity. No organized fluid collections. Electronically signed by: Rito Hernandez MD 11/03/2024 10:37 AM EST Dictated By: Rito Philip MD Signed By: <Electronically signed by Rito Gamino MDin OV> 11/03/24 1037 DD/ 1000 TD/TT: 11/03/24 1011 Body Shop Mechanic: [facility] External Provider IMG US PROCEDURES Edited Result - Final * (ABNORMAL) Prothrombin Time-INR (11/03/2024 9:49 AM EST) Only the most recent of2 resultswithin the time period is included. Prothrombin Time 21.1(H) 10.9 - 12.4 SEC [facility] INTERNATIONAL NORM RATIO 1.8(H) 0.9 - 1.1 [facility] Comment:INTERNATIONAL NORMAL IZED RATIO (INR) REFERENCE RANGES Reference RangeFor patients not on anticoagulant therapy: 0.9 - 1.1INR ranges for oral anticoagulanttherapy:For prevention and treatment of venous thrombosis and pulmonary embolism: 2.0 - 3.0For acute myocardial infarction with aspirin therapy: 2.0 - 3.0For acute myocardial infarction without aspirin therapy: 3.0 - 4.0For patients with mechanical prosthetic heart valves: 2.5 - 3.5 11/03/2024 9:49 AM EST 11/03/2024 9:55 AM EST Generic External Data Provider LAB BLOOD ORDERAB LES Final Result Performing Organization Address City/[facility] [[email or web address]] Co de Phone Number [facility] [address] [place] [address] [phone] * Lactic Acid (11/03/2024 9:49 AM EST) Only the most recent of4 resultswithin the time period is included. Lactic Acid 0.7 0.5 - 2.0 mmol/L [facility] 11/03/2024 9:49 AM EST 11/03/2024 9:55 AM EST Generic External Data Provider LAB BLOOD ORDERAB LES Final Result Performing Organization Address City/[facility]/ZIP Co de Phone Number [facility] [address] [place] [phone] * Sed Rate by Modified [place] (11/03/2024 6:29 AM EST) Erythrocyte Sedimentation Rate 8 0 - 15 MM/HR [facility] Comment:Patients with polycy themia and many hemoglobin abnormalitiesmay have depressed sed rates whereas patients with anemiamay have elevated sed rates. 11/03/2024 6:29 AM EST 11/03/2024 9:19 AM EST us Generic External Data Provider LAB BLOOD ORDERAB LES Final Result [facility] [address] [place] [phone] * (ABNORMAL) CBC (11/03/2024 6:29 AM EST) White Blood Count 9.5 4.8 - 10.8 X10*3/uL [facility] Red Blood Count 3.65(L) 4.60 - 5.80 X10*6/uL [facility] Hemoglobin 8.4(L) 14.0 - 18.0 g/dl [facility] Hematocrit 28.1(L) 42.0 - 52.0 % [facility] Mean Corpuscular Volume 77.0(L) 80.0 - 98.0 fL [facility] Mean Corpuscular Hemoglobin 23.0(L) 27.0 - 33.0 pg [facility] Mean Corpuscular HGB Conc 29.9(L) 31.0 - 36.0 g/dl [facility] Red Cell Distribution Width 25.4(H) 11.0 - 16.0 % [facility] Platelet Count 328 160 - 400 X10*3/uL [facility] Mean Platelet Volume 9.4 9.4 - 12.4 fL [facility] NRBC Pct Auto 0.0 0.0 - 0.2 /100WBC [facility] NRBC Abs Auto 0.000 0.0 - 0.012 X10*3/uL [facility] 11/03/2024 6:29 AM EST 11/03/2024 6:44 AM EST Generic External Data Provider LAB BLOOD ORDERAB LES Final Result Performing Organization Address [facility] [[email or web address]] Co de Phone Number [facility] [address] [place] [phone] * (ABNORMAL) C-reactive Protein (11/03/2024 6:29 AM EST) Pathologist [facility] C Reactive Protein 4.35(H) < or = 0.50 mg/dL [facility] 11/03/2024 6:29 AM EST 11/03/2024 6:44 AM EST Generic External Data Provider LAB BLOOD ORDERAB LES Final Result Performing Organization Address [facility] de Phone Number [facility] [address] [place] [phone] * (ABNORMAL) Basic Metabolic Panel (11/03/2024 6:29 AM EST) Only the most recent of3 resultswithin the time period is included. [facility] Sodium 136 135 - 145 mmol/L [facility] Potassium 4.4 3.3 - 5.1 mmol/L [facility] Chloride 110(H) 96 - 108 mmol/L [facility] Carbon Dioxide 19(L) 22 - 29 mmol/L [facility] Anion Gap 11(L) 12 - 20 [facility] Urea Nitrogen (BUN) 18(H) 9 - 16 mg/dL [facility] Creatinine, Serum 0.74 0.5 - 1.4 mg/dL [facility] Creatinine Clr Calc Pharmacy 128.3 [facility] Comment:eGFR (calculated fro m the MDRD study equation) and eCrCl(calculated from the Cockcroft-Gault equation) are based ondifferent parameters and may not yield comparable results.If eCrCl result is absurd, please check patient'sheight/weight. Estimated Glomerular Filt Rate >60 [facility] Comment:Chronic Kidney Disea se: Estimated GFR < 60 mL/min/1.76i3Ezugfc Kidney Disease: Estimated GFR < 15 mL/min/1.73m2 Glucose 71 60 - 115 mg/dL [facility] Calcium 8.4 8.4 - 10.2 mg/dL [facility] 11/03/2024 6:29 AM EST 11/03/2024 6:44 AM EST Generic External Data Provider LAB BLOOD ORDERAB LES Final Result Performing Organization Address [facility] [[email or web address]] Co de Phone Number [facility] [address] [place] [phone] * (ABNORMAL) Hemoglobin and Hematocrit (10/19/2024 5:47 AM EST) Only the most recent of2 resultswithin the time period is included. Hemoglobin 8.7(L) 14.0 - 18.0 g/dl [facility] Hematocrit 26.8(L) 42.0 - 52.0 % [facility] 10/19/2024 5:47 AM EST 10/19/2024 5:50 AM EST Generic External Data Provider LAB BLOOD ORDERAB LES Final Result Performing Organization Address [facility] [[email or web address]] Co de Phone Number [facility] [address] [place] [phone] * OBSX1 (10/18/2024 7:01 PM EST) OBS1 NEGATIVE NEGATIVE [facility] 10/18/2024 7:01 PM EST 10/18/2024 7:03 PM EST Generic External Data Provider LAB BLOOD ORDERAB LES Final Result Performing Organization Address City/[facility]/ZIP Co de Phone Number [facility] [address] [place] [phone] * XR Chest 1 View (10/18/2024 5:59 PM EST) Anatomical Region Laterality Modality Chest Radiographic Ladan ging 10/18/2024 5:59 PM EST Narrative 10/18/2024 6:00 PM EST ? [facility] ?[address] ?[place] [address] ?XRay Report ? Signed ? Patient: Coriano,Norberto ?MR#: [id number] ? : 1990 ?Acct:[id number] ? Age/Sex: 33 / M ?ADM Date: 10/18/24 ? Loc: HO.ED ? Attending Dr: ? Ordering Physician: Timothy Tomlinson MD ?? Date of Service: 10/18/24 ?? Procedure(s): XR chest 1V ?? Accession Number(s): [id number] ? cc: [facility]; Timothy Tomlinson MD ? CLINICAL HISTORY: ?pneumonia ? Single view of the chest. ? COMPARISON: XR chest dated 09/23/24 at 04:15 EST ? FINDINGS: ?? Status post sternotomy. ? Borderline cardiomegaly. ?? No consolidation. Interval resolution of previously seen bilateral midlung ?? consolidation. ?? No pleural effusion or pneumothorax. ?? No fracture identified. ? IMPRESSION: ?? 1. No consolidation. ? This document has been electronically signed by: Primo Lucero MD on ?? 10/18/2024 17:59:18 ? Dictated By: ?Primo Lucero MD ? Signed By: ?<Electronically signed by Primo Lucero MD in OV> ?10/18/24 1800 ? DD/ 1759 ? TD/TT: 10/18/24 1759 ? [employer] Shop Mechanic: ? Procedure Note Pieter, Image - 10/18/[address] [address] XRay Report Signed Patient: Zully Marquez#: [id number] : 1990Acct:[id number] Age/Sex: 33 / MADM Date: 10/18/24 Loc: HO.ED Attending Dr: Ordering Physician: Timothy Tomlinson MD Date of Service: 10/18/24 Procedure(s): XR chest 1V Accession Number(s): [id number] cc: [facility]; Timothy Tomlinson MD CLINICAL HISTORY: ?pneumonia Single view of the chest. COMPARISON: XR chest dated 09/23/24 at 04:15 EST FINDINGS: Status post sternotomy. Borderline cardiomegaly. No consolidation. Interval resolution of previously seen bilateral midlung consolidation. No pleural effusion or pneumothorax. No fracture identified. IMPRESSION: 1. No consolidation. This document has been electronically signed by: Primo Lucero MD on 10/18/2024 17:59:18 Dictated By: Primo Lucero MD Signed By: <Electronically signed by Primo Lucero MD in OV> 10/18/24 1800 DD/ 58 TD/TT: 10/18/241758 [employer]: [facility] External Provider IMG XR PROCEDURES Edited Result - Final * Blood Culture (Second) (10/18/2024 5:49 PM EST) Blood Venous blood specimen / Unknown 10/18/2024 5:49 PM EST 10/18/2024 5:54 PM EST Comment:Blood [facility] - 2024 7:54 PM EST Blood Culture (Second) No growth after 5 days. Specimen Source: Blood Generic External Data Provider LAB MICROBIOLOGY - GENERAL ORDERABLES Final Result [facility] [address] [place] [phone] * Blood Culture (First) (10/18/2024 5:41 PM EST) Blood Venous blood specimen / Unknown 10/18/2024 5:41 PM EST 10/18/2024 5:46 PM EST Comment:Blood Narrative [facility] - 2024 7:46 PM EST Blood Culture (First) No growth after 5 days. Specimen Source: Blood Generic External Data Provider LAB MICROBIOLOGY - GENERAL ORDERABLES Final Result Performing Organization Address City/[facility]/ZIP Co de Phone Number [facility] [address] [place] [phone] * Red blood count (10/18/2024 5:14 PM EST) Red Blood Cells: [id number] OP RC TRANSFUSED 10/19/24 0024 [id number] OP RC TRANSFUSED 10/18/24 210 [facility] 10/18/2024 5:14 PM EST 10/18/2024 5:21 PM EST us Generic External Data Provider LAB BLOOD ORDERAB LES Final Result Performing Organization Address [facility] [[email or web address]] Co de Phone Number [facility] [address] [place] [phone] * Type and screen (10/18/2024 5:14 PM EST) Only the most recent of3 resultswithin the time period is included. Blood Type OP [facility] Antibody Screen NEGATIVE [facility] 10/18/2024 5:14 PM EST 10/18/2024 5:21 PM EST Narrative [facility] - 10/19/2024 3:12 AM EST Results at Issue Units as of 10/18/242108 ...Test View Group: Most Recent HGB ?? HCT Results ?LABORATORYDate ?Time Test ?Result ?Flag Normal Range10/18/24 1602 HGB ?6.5 ?*L ?? 14.0-18.0 g/dlRESULTS OF HGB CALLED TO AND READ BACK BY YORDY 10/18/24 AT 1610 BY QASIM.10/18/24 1602 HCT ?21.2 ?L ?? 42.0-52.0 % Results at Issue Units as of 10/19/24 0026 ...Test View Group: Most Recent HGB ?? HCT Results ?LABORATORYDate ?Time Test ?Result ?Flag Normal Range10/18/24 1602 HGB ?6.5 ?*L ?? 14.0-18.0 g/dlRESULTS OF HGB CALLED TO AND READ BACK BY YORDY 10/18/24 AT 1610 BY QASIM.10/18/24 1602 HCT ?21.2 ?L ?? 42.0-52.0 % No Generic External Data Provider LAB BLOOD BANK TE ST ORDERABLES Final Result Performing Organization Address [facility]/ZIP Co de Phone Number [facility] [address] [place] [address] [phone] * Pathologist Review - CBC (10/18/2024 4:02 PM EST) Pathologist Review - CBC SEE NOTE [facility] Comment:Variably hypochromic microcytic anemia; elliptocytes,ovalocytes, echinocytes and rare targets and rare fragmentsare present. White blood cells are mildly increased innumber; rare left-shifted granulocytes with toxic changesare present.- Wayne Bolanos M.D. Pathology 10/18/2024 4:02 PM EST 10/18/2024 4:04 PM EST [place] [facility] External Data Provider LAB BLOOD ORDERAB LES Final Result Performing Organization Address [facility]/ZIP Co de Phone Number [facility] [address] [place] [phone] * Ethanol (10/13/2024 5:41 PM EST) ETHANOL (MG/DL) IN SER/PLAS <10 mg/dL [facility] Comment:Serum/plasma ethanol results are to be used formedical/treatment purposes only. 10/13/2024 5:41 PM EST 10/13/2024 5:47 PM EST Generic External Data Provider LAB BLOOD ORDERAB LES Final Result Performing Organization Address City/[facility] [[email or web address]] Co de Phone Number [facility] [address] [place] [phone] * Urinalysis, Complete, with Reflex to Culture (10/13/2024 5:41 PM EST) Color Urine Yellow [facility] Appearance Urine Clear [facility] PH 5.5 5.0 - 9.0 [facility] Glucose Urine UA Negative Negative mg/dL [facility] Urine Blood Negative Negative [facility] Specific [place] - Urine 1.020 1.005 - 1.025 [facility] Urine Protein Trace Neg-Trace mg/dL [facility] Urine Ketones Negative Negative mg/dL [facility] Nitrite Urine Negative Negative [facility] Leukocyte Esterase Urine Negative Negative [facility] RBC Urine 0-2 0 - 2 /HPF [facility] Urine WBC 0-5 0 - 5 /HPF [facility] Urine Squamous Epithelial Cell 0-2 0 - 2 /HPF [facility] Urine Bacteria None Seen None Seen [facility] Hyaline Casts, Urine 0-2 0 - 2 /LPF [facility] 10/13/2024 5:41 PM EST 10/13/2024 5:47 PM EST Narrative [facility] - 10/13/2024 6:03 PM EST [id number], [employer]atch us Generic External Data Provider LAB URINE ORDERAB LES Final Result [facility] [address] [place] [phone] * (ABNORMAL) Creatine Kinase, Total (10/13/2024 5:41 PM EST) Only the most recent of4 resultswithin the time period is included. Creatine Kinase Total 393(H) 38 - 174 U/L [facility] 10/13/2024 5:41 PM EST 10/13/2024 5:47 PM EST us Generic External Data Provider LAB BLOOD ORDERAB LES Final Result Performing Organization Address [facility] de Phone Number [facility] [address] [place] [phone] * CTA Chest PE Protocal (10/10/2024 7:48 AM EST) Anatomical Region Laterality Modality Body, Chest Computed Tomogra phy 10/10/2024 7:48 AM EST Narrative 10/10/2024 10:04 AM EST ? [facility] ?[address] ?[place] [address] ? CT Scan Report ? Signed ? Patient: Norberto Marquez ?MR#: [id number] ? : 1990 ?Acct:[id number] ? Age/Sex: 33 / M ?ADM Date: 10/10/24 ? Loc: HO.ED ? Attending Dr: ? Ordering Physician: Ofelia Najera DO ?? Date of Service: 10/10/24 ?? Procedure(s): CT angio chest PE protocol ?? Accession Number(s): [id number] ? cc: Ofelia Najera DO; NameSabas MD ? EXAMINATION: ?? CT ANGIOGRAM CHEST ? CLINICAL INFORMATION: ?? Shortness of breath. IV drug abuser ? COMPARISON: ?? CT angiographic chest dated May 20, 2024. ? TECHNIQUE: ?? Multiple axial images were obtained through the chest after the ?? administration of 85 mL of Omnipaque 350 intravenous contrast. ?? Extensive vascular post-processing including two-dimensional and ?? three-dimensional reformatted images were created and reviewed on an ?? independent workstation. ?? SmartPrep technique. ? This CT examination was performed using dose optimization techniques as ?? appropriate, variously including the following: ?? *Automated exposure control ?? *Adjustment of mA and/or kV according to patient size (this includes ?? techniques or standardized protocols for targeted exams where dose is ?? matched to indication/reason for exam; i.e. extremities or head) ?? *Use of iterative reconstruction technique ? DLP: ?? 307 mGy-cm ? FINDINGS: ?? Limited by patient's motion artifact. ? Inadequate smart prepped technique. ? No gross intraluminal filling defects within the main pulmonary artery ?? or its main branches. The peripheral small subsegmental pulmonary ?? artery branches are not fully evaluated. ?? No aneurysm or dissection, thoracic aorta. ?? Bilateral pulmonary patchy groundglass with the mosaic pattern ?? involving mostly the lower lobe, bilaterally. ?? 5 mm subpleural nodules in the peripheral lower lobes. ?? Bilateral apical lung scarring. ?? No pleural effusion. ?? No pneumothorax. ?? Sternal wires. ?? Electrode leads in the left anterior chest into the cardia. ?? No pericardial effusion. ?? There is an enlarged right atrium and inferior vena cava. ?? No pneumomediastinum. ?? No acute fracture or listhesis in the axial skeleton. ? CT/CT angio chest PE protocol ?? IMPRESSION: ?? No acute pulmonary artery emboli. ?? No aneurysm or dissection, thoracic aorta. ?? Pulmonary edema in the correct clinical settings. ? Fleischner guidelines were followed. ? Electronically signed by: ??Rito Hernandez MD ??10/10/2024 10:01 AM ?? EST RP ? Dictated By: ?Rito Philip MD ? Signed By: ?<Electronically signed by Rito Gamino MD in OV> ? 10/10/24 1001 ? DD/ 0748 ? TD/TT: 10/10/24 0841 ? [employer] Shop Mechanic: ? Procedure Note Jonathan Stapleton - 10/10/2024 [facility] [address] [place] [address] CT Scan Report Signed Patient: Zully Marquez#: [id number] : 1990Acct:[id number] Age/Sex: 33 / MADM Date: 10/10/24 Loc: HO.ED Attending Dr: Ordering Physician: Ofelia Najera DO Date of Service: 10/10/24 Procedure(s): CT angio chest PE protocol Accession Number(s): [id number] cc: Ofelia Najera DO; Name,Sabas ARCOS EXAMINATION: CT ANGIOGRAM CHEST CLINICAL INFORMATION: Shortness of breath. IV drug abuser COMPARISON: CT angiographic chest dated May 20, 2024. TECHNIQUE: Multiple axial images were obtained through the chest after the administration of 85 mL of Omnipaque 350 intravenous contrast. Extensive vascular post-processing including two-dimensional and three-dimensional reformatted images were created and reviewed on an independent workstation. SmartPrep technique. This CT examination was performed using dose optimization techniques as appropriate, variously including the following: *Automated exposure control *Adjustment of mA and/or kV according to patient size (this includes techniques or standardized protocols for targeted exams where dose is matched to indication/reason for exam; i.e. extremities or head) *Use of iterative reconstruction technique DLP: 307 mGy-cm FINDINGS: Limited by patient's motion artifact. Inadequate smart prepped technique. No gross intraluminal filling defects within the main pulmonary artery or its main branches. The peripheral small subsegmental pulmonary artery branches are not fully evaluated. No aneurysm or dissection, thoracic aorta. Bilateral pulmonary patchy groundglass with the mosaic pattern involving mostly the lower lobe, bilaterally. 5 mm subpleural nodules in the peripheral lower lobes. Bilateral apical lung scarring. No pleural effusion. No pneumothorax. Sternal wires. Electrode leads in the left anterior chest into the cardia. No pericardial effusion. There is an enlarged right atrium and inferior vena cava. No pneumomediastinum. No acute fracture or listhesis in the axial skeleton. CT/CT angio chest PE protocol IMPRESSION: No acute pulmonary artery emboli. No aneurysm or dissection, thoracic aorta. Pulmonary edema in the correct clinical settings. Fleischner guidelines were followed. Electronically signed by: Rito Hernandez MD 10/10/2024 10:01 AM [facility] Dictated By: Rito Philip MD Signed By: <Electronically signed by Rito Gamino MDin OV> 10/10/24 1001 DD/ 0748 TD/TT: 10/10/24 0841 [employer] Shop Mechanic: us [facility] External Provider IMG CT PROCEDURES Final Result * CT Soft Tissue Neck w/ Contrast (10/10/2024 6:19 AM EST) Anatomical Region Laterality Modality Head, Neck Computed Tomogra phy 10/10/2024 6:19 AM EST Narrative 10/10/2024 9:19 AM EST ? [facility] ?[address] ?[place] [address] ? CT Scan Report ? Signed ? Patient: Corjazmin,Norberto ?MR#: [id number] ? : 1990 ?Acct:[id number] ? Age/Sex: 33 / M ?ADM Date: 10/10/24 ? Loc: HO.ED ? Attending Dr: ? Ordering Physician: Ofelia Najera DO ?? Date of Service: 10/10/24 ?? Procedure(s): CT soft tissue neck w IV con ?? Accession Number(s): [id number] ? cc: Ofelia Najera DO; Name,Sabas ARCOS ? EXAMINATION: ?? CT SOFT TISSUE NECK WITH CONTRAST ? CLINICAL INFORMATION: ?? Right-sided neck pain and swelling. ? COMPARISON: ?? CT dated April 19, 2020. ? TECHNIQUE: ?? Following the intravenous administration of 85 mL of Omnipaque 350 ?? intravenous contrast, helical imaging was performed in the axial plane ?? with generation of coronal and sagittal reformatted images. ? This CT examination was performed using dose optimization techniques as ?? appropriate, variously including the following: ?? *Automated exposure control ?? *Adjustment of mA and/or kV according to patient size (this includes ?? techniques or standardized protocols for targeted exams where dose is ?? matched to indication/reason for exam; i.e. extremities or head) ?? *Use of iterative reconstruction technique ? DLP: ?? 397 mGy-cm ? FINDINGS: ? Skull base, nasopharynx, oropharynx, retropharynx, hypopharynx and ?? larynx demonstrated no gross masses or fluid collections. ?? Focal 5 mm gas-filled diverticulum at the left supraglottic. ? Planner spaces, parapharyngeal spaces and carotid compartments ?? demonstrated no gross mass or fluid collections. ?? Salivary glands demonstrated normal morphology and enhancement pattern. ? The vessels are patent. ?? The thyroid gland is not enlarged. There is no gross dominant nodule. ? Prominent lymph nodes in the submandibular compartment, nonspecific. ?? . ?? Oral cavity, sublingual and submandibular compartments demonstrated no ?? gross masses or fluid collections. ? Spondylosis at C5-6. ?? Sternal wires. ?? Tympanic cavities and mastoid cells are aerated. ?? S-shaped nasal septum configuration. ?? No air-fluid levels in the paranasal sinuses. ?? No mass or fluid collections in the intraconal or extraconal ?? compartments of the orbits. ?? Linear and patchy pulmonary groundglass, upper lobes. Bilateral apical ?? lung scarring. ?? Electrode leads in the left upper hemithorax. ? CT/CT soft tissue neck w IV con ?? IMPRESSION: ?? Nonspecific prominent lymph nodes, submandibular compartment ?? bilaterally. ?? No abscess. ?? No mass. ?? Concerning acute on chronic airway disease ? Electronically signed by: ??Rito Hernandez MD ??10/10/2024 09:16 AM ?? EST ? Dictated By: ?Rito Philip MD ? Signed By: ?<Electronically signed by Rito Gamino MD in OV> ? 10/10/24 0916 ? DD/ 8 ? TD/TT: 10/10/24 0841 ? [employer] Shop Mechanic: ? Procedure Note Jonathan Stapleton - 10/10/[address] [address] [address] Scan Report Signed Patient: Zully Marquez#: [id number] : 1990Acct:[id number] Age/Sex: 33 / MADM Date: 12/23/24 Loc: HO.ED Attending Dr: Ordering Physician: Ofelia Najera DO Date of Service: 10/10/24 Procedure(s): CT soft tissue neck w IV con Accession Number(s): [id number] cc: Ofelia Najera DO; Name,Sabas ARCOS EXAMINATION: CT SOFT TISSUE NECK WITH CONTRAST CLINICAL INFORMATION: Right-sided neck pain and swelling. COMPARISON: CT dated April 19, 2020. TECHNIQUE: Following the intravenous administration of 85 mL of Omnipaque 350 intravenous contrast, helical imaging was performed in the axial plane with generation of coronal and sagittal reformatted images. This CT examination was performed using dose optimization techniques as appropriate, variously including the following: *Automated exposure control *Adjustment of mA and/or kV according to patient size (this includes techniques or standardized protocols for targeted exams where dose is matched to indication/reason for exam; i.e. extremities or head) *Use of iterative reconstruction technique DLP: 397 mGy-cm FINDINGS: Skull base, nasopharynx, oropharynx, retropharynx, hypopharynx and larynx demonstrated no gross masses or fluid collections. Focal 5 mm gas-filled diverticulum at the left supraglottic. Planner spaces, parapharyngeal spaces and carotid compartments demonstrated no gross mass or fluid collections. Salivary glands demonstrated normal morphology and enhancement pattern. The vessels are patent. The thyroid gland is not enlarged. There is no gross dominant nodule. Prominent lymph nodes in the submandibular compartment, nonspecific. . Oral cavity, sublingual and submandibular compartments demonstrated no gross masses or fluid collections. Spondylosis at C5-6. Sternal wires. Tympanic cavities and mastoid cells are aerated. S-shaped nasal septum configuration. No air-fluid levels in the paranasal sinuses. No mass or fluid collections in the intraconal or extraconal compartments of the orbits. Linear and patchy pulmonary groundglass, upper lobes. Bilateral apical lung scarring. Electrode leads in the left upper hemithorax. CT/CT soft tissue neck w IV con IMPRESSION: Nonspecific prominent lymph nodes, submandibular compartment bilaterally. No abscess. No mass. Concerning acute on chronic airway disease Electronically signed by: Rito Hernandez MD 10/10/2024 09:16 AM [facility] Dictated By: Rito Philip MD Signed By: <Electronically signed by Valentin Cameron OV> 10/10/24 0916 DD/ 0619 TD/TT: 10/10/24 0841 [employer] Shop Mechanic: [facility] External Provider IMG CT PROCEDURES Final Result * (ABNORMAL) B Type Natriuretic Peptide (BNP) (10/10/2024 4:31 AM EST) Only the most recent of2 resultswithin the time period is included. B Type Natriuretic Peptide 306(H) <100 pg/mL [facility] Comment:For those patients w ho are being treated with Natrecor(nesiritide, recombinant BNP), BNP testing should beperformed at least two hours post treatment in order toensure that only endogenous levels of BNP are detected. 10/10/2024 4:31 AM EST 10/10/2024 6:51 AM EST Generic External Data Provider LAB BLOOD ORDERAB LES Final Result [facility] [address] [place] [phone] * XR Chest 2 Views (10/10/2024 4:15 AM EST) Anatomical Region Laterality Modality Chest Radiographic Ladan ging 10/10/2024 4:15 AM EST Narrative 10/10/2024 4:41 AM EST ? [facility] ?[address] ?[place] [address] ?XRay Report ? Signed ? Patient: Coriano,Norberto ?MR#: [id number] ? : 1990 ?Acct:[id number] ? Age/Sex: 33 / M ?ADM Date: 12/23/24 ? Loc: HO.ED ? Attending Dr: ? Ordering Physician: Generic ED Physician ?? Date of Service: 10/10/24 ?? Procedure(s): XR chest 2V ?? Accession Number(s): [id number] ? cc: Generic ED Physician; Name,Sabas ARCOS ? EXAMINATION: ?? XR CHEST ? CLINICAL INFORMATION: ?? cp ? COMPARISON: ?? September 23, 2024 ? TECHNIQUE: ?? 2 views of the chest were obtained. ? FINDINGS: ?? The cardiomediastinal silhouette is normal. There has been a previous ?? median sternotomy. Pacer leads are again seen in stable positions. ?? There is no focal lung consolidation or pleural effusions. The bony ?? structures and soft tissues are unremarkable. ? XR/XR chest 2V ?? IMPRESSION: ?? No active cardiopulmonary disease. ? Electronically signed by: ??Eh Mondragon MD ??10/10/2024 04:38 AM EST RP ? Dictated By: ?Eh Mondragon MD ? Signed By: ?<Electronically signed by Eh Mondragon MD in OV> ?10/10/24 0438 ? DD/ 0415 ? TD/TT: 10/10/24 0420 ? [employer] Shop Mechanic: ? Procedure Note Donchauter, Image - 10/10/2024 [place] [address] XRay Report Signed Patient: Zully Marquez#: [id number] : 1990Acct:[id number] Age/Sex: 33 / MADM Date: 10/10/24 Loc: .ED Attending Dr: Ordering Physician: Generic ED Physician Date of Service: 10/10/24 Procedure(s): XR chest 2V Accession Number(s): [id number] cc: Generic ED Physician; Name,Sabas ARCOS EXAMINATION: XR CHEST CLINICAL INFORMATION: cp COMPARISON: September 23, 2024 TECHNIQUE: 2 views of the chest were obtained. FINDINGS: The cardiomediastinal silhouette is normal. There has been a previous median sternotomy. Pacer leads are again seen in stable positions. There is no focal lung consolidation or pleural effusions. The bony structures and soft tissues are unremarkable. XR/XR chest 2V IMPRESSION: No active cardiopulmonary disease. Electronically signed by: Eh Mondragon MD 10/10/2024 04:38 AM EST Dictated By: Eh Mondragon MD Signed By: <Electronically signed by Eh Mondragon MD in OV> 10/10/24 0438 DD/ 0415 TD/TT: 10/10/24 0420 [employer] Shop Mechanic: [facility] External Provider IMG XR PROCEDURES Final Result * Glucose, Whole Blood (09/23/2024 5:09 AM EST) Pathologist [facility] Glucose, Whole Blood 100 60 - 115 mg/dL [facility] Comment:METER #: [id number] 09/23/2024 5:09 AM EST 09/23/2024 5:25 AM EST Generic External Data Provider LAB BLOOD ORDERAB LES Final Result Performing Organization Address [facility] de Phone Number [facility] [address] [place] [phone] * D Dimer High Sensitivity (09/23/2024 3:31 AM EST) [facility] D Dimer High Sensitivity 2,159 NG/ML [facility] Comment:D-DIMER HS REFERENCE RANGENote: Our assay reports D-Dimer Units (D- DU).The cut-off value for venous thromboembolic (VTE) disease is230 ng/mL. This value has a very high negative predictivevalue when the patient has a low to moderate clinicalprobability of VTE.The upper limit of normal is 243 ng/mL. 09/23/2024 3:31 AM EST 09/23/2024 3:38 AM EST Generic External Data Provider LAB BLOOD ORDERAB LES Final Result Performing Organization Address [facility]/ZIP Co de Phone Number [facility] [address] [place] [phone] * (ABNORMAL) Partial Thromboplastin Time, Activated (APTT) (09/23/2024 3:31 AM EST) [facility] Partial Thromboplastin Time 37.5(H) 26.0 - 36.8 SEC [facility] Comment:For information rega rding the monitoring of direct thrombininhibitors, please refer to Pharmacy. 09/23/2024 3:31 AM EST 09/23/2024 3:38 AM EST us Generic External Data Provider LAB BLOOD ORDERAB LES Final Result Performing Organization Address [facility]/State/ZIP Co de Phone Number [facility] [address] [place] [address] [phone] * CT Abdomen Pelvis w/o Contrast (09/13/2024 10:01 AM EST) Anatomical Region Laterality Modality Body, Pelvis, Abdomen Computed T omography 09/13/2024 10:0 1 AM EST Narrative 09/13/2024 2:35 PM EST ? [facility] ?[address] ?[place] [address] ? CT Scan Report ? Signed ? Patient: Coriano,Norberto ?MR#: [id number] ? : 1990 ?Acct:[id number] ? Age/Sex: 33 / M ?ADM Date: 09/13/24 ? Loc: HO.IMC ?467-1 ? Attending Dr: Gaurav Snodwen MD ? Ordering Physician: Rafael Heck MD ?? Date of Service: 09/13/24 ?? Procedure(s): CT abdomen pelvis wo IV con ?? Accession Number(s): [id number] ? cc: Rafael Heck MD; [facility] ? EXAMINATION: ?? CT ABDOMEN AND PELVIS WITHOUT CONTRAST ? CLINICAL INFORMATION: ?? Severe epigastric pain. ? COMPARISON: ?? CT scans dating between October 27, 2023 and June 12, 2020. ? TECHNIQUE: ?? Multidetector volumetric imaging was performed from the superior aspect ?? of the liver through the pubic symphysis. Sagittal and coronal ?? reformatted images were obtained on the technologist's workstation. ? This [...] of iterative reconstruction technique ? DLP: ?? 386 mGy-cm ? FINDINGS: ? Limited by lack of oral and intravenous contrast, paucity of ?? intra-abdominal fat, motion, and anasarca. ? LUNG BASES: The lung bases appear clear, with no evidence of ?? inflammation or nodules. ??Heart normal in size. Suspect coronary ?? arterial calcification, partially imaged. ? LIVER, GALLBLADDER, AND BILIARY TREE: The liver appears unremarkable in ?? size, shape, and attenuation. No focal hepatic lesion or biliary ductal ?? dilatation is appreciated. Collapsed gallbladder. Suspect mild diffuse ?? gallbladder wall thickening, nonspecific. ? PANCREAS: Unremarkable ? SPLEEN: Unremarkable ? ADRENAL GLANDS: Unremarkable ? KIDNEYS AND URETERS: The kidneys appear unremarkable in size, shape, ?? and attenuation. No hydronephrosis, hydroureter, or calculi seen. ? BLADDER: Poorly distended, therefore suboptimally evaluated. Grossly ?? unremarkable. ? GASTROINTESTINAL TRACT: The small and large bowel appear unremarkable. ?? No gross diverticulosis. Normal-appearing distal ileum. Suspect ?? appendectomy. ? PERITONEAL CAVITY: Small amount of ascites. No free intraperitoneal air. ? ABDOMINAL WALL: Mild anasarca. No significant hernia is appreciated. ? LYMPH NODES: No evidence of adenopathy by size criteria. ? VASCULAR: Unremarkable ? PELVIC VISCERA: Unremarkable ? OSSEOUS STRUCTURES: Unremarkable ? CT/CT abdomen pelvis wo IV con ?? IMPRESSION: ? Limited study. ? Small amount of ascites. Mild anasarca. ? Suspect mild diffuse gallbladder wall thickening, nonspecific. ? Suspect coronary arterial calcification, partially imaged. ? Electronically signed by: ??Dave Lazaro MD ??09/13/2024 02:32 PM EST RP ? Dictated By: ?Dave Lazaro ? Signed By: ?<Electronically signed by Dave Lazaro in OV> ?09/13/24 1432 ? DD/ 1001 ? TD/TT: 09/13/24 1007 ? Body Shop Mechanic: ? Procedure Note Donotuseinterpreter, Image - 09/13/[address] [address] [address] Scan Report Signed Patient: Zully Marquez#: [id number] : 1990Acct:[id number] Age/Sex: 33 / MADM Date: 09/13/24 Loc: [facility] 467-[address]: Gaurav Snowden MD Ordering Physician: Rafael Heck MD Date of Service: 09/13/24 Procedure(s): CT abdomen pelvis wo IV con Accession Number(s): [id number] cc: Rafael Heck MD; [facility] EXAMINATION: CT ABDOMEN AND PELVIS WITHOUT CONTRAST CLINICAL INFORMATION: Severe epigastric pain. COMPARISON: CT scans dating between October 27, 2023 and June 12, 2020. TECHNIQUE: Multidetector volumetric imaging was performed from the superior aspect of the liver through the pubic symphysis. Sagittal and coronal reformatted images were obtained [...] head) *Use of iterative reconstruction technique DLP: 386 mGy-cm FINDINGS: Limited by lack of oral and intravenous contrast, paucity of intra-abdominal fat, motion, and anasarca. LUNG BASES: The lung bases appear clear, with no evidence of inflammation or nodules. Heart normal in size. Suspect coronary arterial calcification, partially imaged. LIVER, GALLBLADDER, AND BILIARY TREE: The liver appears unremarkable in size, shape, and attenuation. No focal hepatic lesion or biliary ductal dilatation is appreciated. Collapsed gallbladder. Suspect mild diffuse gallbladder wall thickening, nonspecific. PANCREAS: Unremarkable SPLEEN: Unremarkable ADRENAL GLANDS: Unremarkable KIDNEYS AND URETERS: The kidneys appear unremarkable in size, shape, and attenuation. No hydronephrosis, hydroureter, or calculi seen. BLADDER: Poorly distended, therefore suboptimally evaluated. Grossly unremarkable. GASTROINTESTINAL TRACT: The small and large bowel appear unremarkable. No gross diverticulosis. Normal-appearing distal ileum. Suspect appendectomy. PERITONEAL CAVITY: Small amount of ascites. No free intraperitoneal air. ABDOMINAL WALL: Mild anasarca. No significant hernia is appreciated. LYMPH NODES: No evidence of adenopathy by size criteria. VASCULAR: Unremarkable PELVIC VISCERA: Unremarkable OSSEOUS STRUCTURES: Unremarkable CT/CT abdomen pelvis wo IV con IMPRESSION: Limited study. Small amount of ascites. Mild anasarca. Suspect mild diffuse gallbladder wall thickening, nonspecific. Suspect coronary arterial calcification, partially imaged. 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 Shop Mechanic: [facility] External Provider IMG CT PROCEDURES Final Result * Magnesium (09/13/2024 2:05 AM EST) Pathologist [facility] Magnesium 2.4 1.6 - 2.6 mg/dL [facility] 09/13/2024 2:05 AM EST 09/13/2024 2:10 AM EST Generic External Data Provider LAB BLOOD ORDERAB LES Final Result [facility] [address] [place] [phone] * (ABNORMAL) Hepatic Function Panel (09/13/2024 2:05 AM EST) Bilirubin, Total 1.4(H) 0.0 - 1.0 mg/dL [facility] Bilirubin, Direct 0.9(H) 0.0 - 0.5 mg/dL [facility] Aspartate Amino Transferase 241(H) 5 - 37 U/L [facility] Alanine Aminotransferase 133(H) 0 - 40 U/L [facility] Total Protein 7.3 6.5 - 8.0 g/dL [facility] Albumin Level 3.6 3.5 - 5.0 g/dL [facility] Alkaline Phosphatase 288(H) 39 - 117 U/L [facility] 09/13/2024 2:05 AM EST 09/13/2024 2:10 AM EST us Generic External Data Provider LAB BLOOD ORDERAB LES Final Result [facility] [address] [place] [phone] * HIV-1/2 Antigen and Antibodies, Fourth Generation, with Reflexes (04/08/2024 11:52 AM EDT) HIV AB/AG Nonreactive Nonreactive [facility] Comment:HIV-1 p24 Ag and/or HIV-1/HIV-2 Ab not detected.A test result that is nonreactive does not exclude thepossibility of exposure to or infection with HIV-1 and/orHIV-2. Nonreactive results in this assay for individualswith prior exposure to HIV-1 and/or HIV-2 may be due toantigen and antibody levels that are below the limit ofdetection of this assay.The [employer] HIV Ag/Ab Combo assay result andsupplemental assay results should be interpreted inconjunction with the patient's clinical presentation,history and other laboratory results. If the results areinconsistent with clinical evidence, additional testing issuggested to confirm the result. Blood Venous blood specimen / Unknown 04/08/2024 11:52 AM EDT 04/08/2024 12:58 PM EDT us Alba So NEEDLE LEADER LAB BLOOD ORDERABLES Final Resu lt Performing Organization Address City/[facility]/ZIP Co de Phone Number [facility] [address] [place] [phone] from Last 3 Months or Most Recently Relevant to Health Maintenance Insurance [facility] C3 HS FULL Care Teams Senior Database Programmer Relationship Specialty Start Date End Date Alba So NP [address] [place], [place] PCP - General Family Medicine 04/14/24
--- OUTSIDE RECORDS SUMMARY | 2024-12-09 05:50 | XMS_ITS ---
Author Organization [facility] Address [address] [place] [address] Care Team Providers Care Decorative Cutting Machine Tender Name Role Phone Nirali Isbell Primary Care Provider Michael Mane Jr Unavailable REASON FOR VISIT cancel OV Encounters Encounter Location Date Provider Diagnosis [facility] [address] [place] [address] 09/24/2023 Michael Escamilla Jr PLAN OF TREATMENT No Information
--- OUTSIDE RECORDS SUMMARY | 2024-12-09 05:50 | XMS_ITS ---
Author Organization [facility] Address [address] [place] [address] Care Team Providers Care Bug Trimmer Name Role Phone Nirali Isbell Primary Care Provider Michael Mane Jr Unavailable [phone] REASON FOR VISIT new pt appt Encounters Encounter Location Date Provider Diagnosis [facility] [address] [place] [address] 09/28/2023 Michael Escamilla Jr PLAN OF TREATMENT No Information
[2024-12-09 06:24] VITALS: BP 111/63; PULSE 80; RESP 16; TEMP 37.1; O2SAT 95
--- NOTE | 2024-12-09 07:32 | PC.NURSE ---
SECURITY REPORTS PUTTING THIS PATIENTS JACKEST AND BACKPACK IN THE [place] ON SHELF 1
--- NOTE | 2024-12-09 09:33 | ED.GENADULT ---
HPI - General Adult General Chief complaint: General Medical Stated complaint: infect lft leg ,cp worse when pt breathes, hx days Time Seen by Provider: 12/09/24 09:33 History of Present Illness ED Provider: Cristina ROSARIO narrative: The patient is a 34-year-old male with a lot of medical problems. He is a long-term IV drug user. He has had valvular heart surgery because of his IV drug use. 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 The patient also has a history of bad varicose veins and frequent episodes of bleeding secondary to varicose veins. He has a chronic wound on his left lower leg because of problems with varicose veins. He is still an IV drug user He says he has felt run down for the last 3 days. He has had a cough. He is complaining of body pains, cough, and pain in his left lower leg where he has a wound. He says he has been changing the dressings on the wound himself.. Related Data Home Medications ?Medication ?Instructions ?Recorded ?Confirmed hydroxyzine HCl 50 mg tablet 50 mg PO TID PRN Anxiety 03/30/24 11/03/24 methadone 10 mg/mL oral 105 mg PO DAILY 09/13/24 12/09/24 concentrate (Methadone Intensol) albuterol sulfate 90 mcg/actuation 1 puff inhalation QID PRN wheezing 10/10/24 11/03/24 aerosol inhaler (Ventolin HFA) ferrous sulfate 325 mg (65 mg 325 mg PO DAILY 10/10/24 11/03/24 iron) tablet,delayed release magnesium oxide 400 mg PO DAILY 10/10/24 11/03/24 silver sulfadiazine 1 % topical 1 appl topical Q OTHER DAY 10/10/24 11/03/24 cream thiamine HCl (vitamin B1) 100 mg 100 mg PO DAILY 10/10/24 11/03/24 tablet (Vitamin B-1) rivaroxaban 20 mg tablet (Xarelto) 20 mg PO DAILY@1700 10/14/24 11/03/24 Previous Rx's ?Medication ?Instructions ?Recorded doxycycline monohydrate 100 mg 100 mg PO Q12H #8 caps 11/04/24 capsule rivaroxaban 20 mg tablet 20 mg PO DAILY #30 tabs 12/09/24 Allergies Allergy/AdvReac Type Severity Reaction Status Date / Time No Known Allergies Allergy Verified 12/08/24 23:06 [No Known Allergies*] Review of Systems Review of Systems: Yes all other systems are reviewed and are negative REPLACED BY [facility] Past Medical History Medical History Rhabdomyolysis Anemia LUCERO (acute kidney injury) Polysubstance abuse Opioid use disorder Opioid use disorder, severe, dependence Substance abuse MSSA bacteremia Bacteremia Bacteremia Right heart failure Steatosis, liver Tricuspid valve stenosis Anasarca HCV (hepatitis C virus) Endocarditis Pulmonary embolism Surgical History History of tricuspid valve replacement with bioprosthetic valve Social History Social History Household Members: Other Household Members Other:: intermediate Housing: Homeless Do you presently have visiting nurse or other home services: No Unable to assess alcohol history related to: Refusing to respond Alcohol intake: current Alcohol intake frequency: holidays/special occasions only Patient Tobacco Use Status: Current everyday Tobacco user Tobacco use type: Cigarette Cigarette Packs Per Day: 1 Cigarettes Per Day: 10 Years Smoked: 10 Second Hand Smoke Exposure: No Substance Use Type: Heroin Advance Directives Date on File: 04/16/21 service: No Current occupational status: unemployed Physical Exam ED Vital Signs: Vital Signs - 24 hr 12/08/24 23:03 12/09/24 05:11 12/09/24 06:24 Temperature 99 F 98.7 F Pulse Rate 80 80 Respiratory Rate 20 20 16 Blood Pressure 133/55 L 111/63 Pulse Oximetry 95 95 Oxygen Delivery Method Room Air Room Air 12/09/24 12:28 12/09/24 14:19 12/09/24 15:17 Temperature 0 F L Pulse Rate 60 Respiratory Rate 20 18 18 Blood Pressure 00/0 L Pulse Oximetry Oxygen Delivery Method BMI result Body Mass Index 22.7 Const Other: The patient is a disheveled, chronically ill-appearing 34-year-old. He was very sleepy and fell asleep easily. He did not seem in acute distress. HENMT Other: Face is symmetrical. Mucous membranes moist. Eyes General: appearance normal, both eyes and all related structures Neck Neck: Yes full ROM and Yes no lymphadenopathy Resp Effort & Inspection: normal respiratory effort Auscultation: clear to auscultation bilaterally Cardio Rate: regular rate Rhythm: regular rhythm Heart sounds: S1 normal heart sound present and S2 normal heart sound present GI Other: Abdomen is soft and nontender Skin Other: The patient has areas of wounds on the left lower leg anteriorly, over the anthony. Neuro Other: The patient was sleepy but arousable to a normal mental status. He was coherent and oriented. Cranial nerves are grossly intact. He moves his extremities symmetrically. Extrem Other: The patient has what appeared to be chronic wounds on the anterior left lower leg over the anthony. There does not seem to be surrounding cellulitis. The calves do not seem to be swollen. He seems to be able to move all of his joints Medications Administered Discontinued Medications Generic Name Dose Route Start Last Admin Trade Name Freq PRN Reason Stop Dose Admin Methadone HCl 105 mg 12/09/24 10:10 12/09/24 10:56 Methadone Hcl 20 Mg/2 Ml Oral.Conc PO 12/09/24 10:11 105 mg ONCE ONE Administration Medical Decision Making Medical Decision Making [facility] Narrative: The patient is a 34-year-old male who has a history of IV drug use and has had replace him in of his tricuspid valve because of MSSA endocarditis secondary to IV drug use. He has a bioprosthetic valve. He says he has been maintained on anticoagulation since then. He still uses IV drugs however. He has also had a lot of problems with bleeding varicose veins in his lower legs and has a required suturing in the legs on multiple occasions for controlling bleeding varicosities. The patient presents with a proximally 3 days of respiratory symptoms. He has tested positive for influenza. I think that is the explanation for his respiratory symptoms. He was also concerned about his wounds. I spoke with Dr. Acevedo who recommended alginate dressings. These were applied and the patient was given additional material for every other day wound dressing changes at home. He was given supplies for dressing changes. Additionally case management was able to get him an appointment at the wound clinic next week on Thursday at 7:45 AM. With regard to the patient's influenza I think he has had symptoms for about 3 days so I doubt he would get much benefit from oseltamivir. Additionally the patient stated that he was concerned that he had not been able to fill a prescription for Xarelto (rivaroxaban) turns out that he had picked up a prescription for apixaban (Eliquis) on November 17. He did not understand that apixaban was an alternative anticoagulant. He has the apixaban and is encouraged to continue this. l Lab Data 12/08/24 23:24 12/08/24 23:24 Labs: Lab Results 12/08/24 Range/Units 23:24 WBC 6.6 (4.8-10.8) X10*3/uL RBC 4.22 L (4.60-5.80) X10*6/uL Hgb 8.9 L (14.0-18.0) g/dl Hct 29.7 L (42.0-52.0) % MCV 70.4 L (80.0-98.0) fL MCH 21.1 L (27.0-33.0) pg MCHC 30.0 L (31.0-36.0) g/dl RDW 21.0 H (11.0-16.0) % Plt Count 255 (160-400) X10*3/uL MPV 8.8 L (9.4-12.4) fL Immature Gran % (Auto) 0.3 (0.0-0.4) % Neut % (Auto) 68.0 (45-73) % Lymph % (Auto) 21.0 (20-40) % [place] % (Auto) 9.2 (2-11) % Eos % (Auto) 1.2 (0-4) % Baso % (Auto) 0.3 (0-2) % Lymph # (Auto) 1.4 (1.2-4.9) X10*3/uL [place] # (Auto) 0.6 (0.1-1.2) X10*3/uL Eos # (Auto) 0.1 (0.0-0.4) X10*3/uL Baso # (Auto) 0.0 (0.0-0.2) X10*3/uL Abs Immat Gran (auto) 0.02 (0.00-0.03) X10*3/uL Absolute Neuts (auto) 4.5 (2.0-8.3) x10*3/uL Absolute Nucleated RBC 0.000 (0.0-0.012) X10*3/uL Nucleated RBC % (auto) 0.0 (0.0-0.2) /100WBC Sodium 138 (135-145) mmol/L Potassium 4.2 (3.3-5.1) mmol/L Chloride 109 H (96-108) mmol/L Carbon Dioxide 20 L (22-29) mmol/L Anion Gap 13 (12-20) BUN 16 (9-16) mg/dL Creatinine 0.62 (0.5-1.4) mg/dL Estim Creat Clear Calc 153.2 Estimated GFR > 60 Random Glucose 73 (60-115) mg/dL Calcium 8.6 D (8.4-10.2) mg/dL Total Bilirubin 0.7 (0.0-1.0) mg/dL AST 36 (5-37) U/L ALT 15 (0-40) U/L Alkaline Phosphatase 275 H (39-117) U/L Troponin I High Sens 4.0 (<3.5-35.0) ng/L Total Protein 7.8 (6.5-8.0) g/dL Albumin 3.3 L (3.5-5.0) g/dL Influenza Type A (PCR) POSITIVE A (Negative) Influenza Type B (PCR) NEGATIVE (Negative) RSV RNA Qual (PCR) NEGATIVE (Negative) SARS-CoV-2 RNA (RT-PCR) NEGATIVE (Negative) Discharge Plan Discharge Clinical Impression: Influenza, Open wound of left lower leg Patient Disposition: Home, Self-Care Instructions: Influenza (ED) Additional Instructions: You may change the dressing with the material supplied (this kind of dressing is called alginate ). Change the dressing every other day. Please go to the wound clinic for additional ongoing care. You have tested positive for the flu today. I think that is why you are having the chest symptoms you are having. My hope is that you will start to feel better from the flu and a day or 2. Drink lot of fluids. Apparently you picked up a medication called Eliquis (also known as apixaban) November 17. This medication does the same thing as the Xarelto (rivaroxaban). Both of these medications or blood thinners and you should not be taking both at the same time. Therefore please continue to take the Eliquis (apixaban) for the rest of this month. Appointment has been made for you at the [facility] this coming Thursday at 7:45 AM. Please do your best to keep this appointment next Thursday. They will be able to give you additional wounds supplies to manage this wound. The appointment is for Thursday at 7:45 AM. Please make a follow up appointment with your regular doctor at the [facility] as well. Return to the ER if worse. Prescriptions: New rivaroxaban 20 mg tablet 20 mg PO DAILY Qty: 30 0RF Rx Instructions: must administer with evening meal No Action methadone [Methadone Intensol] 10 mg/mL Concentrate 105 mg PO DAILY doxycycline monohydrate 100 mg Capsule 100 mg PO Q12H Qty: 8 0RF hydroxyzine HCl 50 mg Tablet 50 mg PO TID PRN (Reason: Anxiety) silver sulfadiazine 1 % cream 1 appl topical Q OTHER DAY thiamine HCl (vitamin B1) [Vitamin B-1] 100 mg Tablet 100 mg PO DAILY albuterol sulfate [Ventolin HFA] 90 mcg/actuation HFA aerosol inhaler 1 puff INHALATION QID PRN (Reason: wheezing) ferrous sulfate 325 mg (65 mg iron) tablet,delayed release (DR/EC) 325 mg PO DAILY magnesium oxide 400 mg magnesium Tablet 400 mg PO DAILY Xarelto 20 mg tablet 20 mg PO DAILY@1700 Referrals: [facility] Wound Care Management [Provider Group] Sheryl Aecvedo MD [Physician] - 12/14/24 7:45 am (Please call the office to reschedule if you are unable to make this appointment. ) Interventions: ED Discharge Assessment Last Done: 12/09/24 15:17 Print Language: Liberian
--- NOTE | 2024-12-09 10:15 | HE.PHANOTE ---
Re Methadone Pt received 105mg from [facility] on 12/06/24, along with six take home bottles.
[2024-12-09] MEDS: methADONE HCl 20 MG/2 ML ORAL.CONC 105 MG PO (10:56)
--- NOTE | 2024-12-09 12:24 | MHC.EDTECH ---
PT REFUSED VITALS AT THIS TIME, RN AWARE
[2024-12-09 12:28] VITALS: RESP 20
--- NOTE | 2024-12-09 14:18 | MHC.EDTECH ---
PT REFUSED VITALS AT THIS TIME, RN AWARE
[2024-12-09 14:19] VITALS: RESP 18
[2024-12-09 15:17] VITALS: BP 00/0; PULSE 60; RESP 18; TEMP -17.7; TEMP 0
== END 2024-12-09 15:39 | disposition home or self-care (01) ==
PROVIDERS: Emergency Medicine; Emergency Provider Emergency Medicine; PCP Nurse Practitioner
DX: S81.802A Unspecified open wound, left lower leg, initial encounter (principal); J10.1 Influenza due to other identified influenza virus with other respiratory manifestations; R07.89 Other chest pain; F11.10 Opioid abuse, uncomplicated; F17.210 Nicotine dependence, cigarettes, uncomplicated; X58.XXXA Exposure to other specified factors, initial encounter; Y93.9 Activity, unspecified; Y92.9 Unspecified place or not applicable; Y99.8 Other external cause status; Z79.899 Other long term (current) drug therapy; Z03.818 Encounter for observation for suspected exposure to other biological agents ruled out
CPT/HCPCS: 0241U; 71046; 80053; 84484; 85025; 93005; 99284

== ENCOUNTER → 2024-12-08 23:19 | Outpatient (BNV) | payer MEDICAID, SELFPAY | PROVIDERS: Emergency Provider Emergency Medicine; Visit Provider Internal Medicine | DX: R07.9 Chest pain, unspecified (principal); R94.31 Abnormal electrocardiogram [ECG] [EKG] | CPT/HCPCS: 93010 ==

== ENCOUNTER → 2024-12-08 23:26 | Outpatient (BNV) | payer MEDICAID, SELFPAY | PROVIDERS: Emergency Provider Emergency Medicine; Visit Provider Radiology Neuroradiology | DX: R91.8 Other nonspecific abnormal finding of lung field (principal) | CPT/HCPCS: 71046 ==

== ENCOUNTER 2024-12-25 06:52 | Emergency (ER) | payer MEDICAID, SELFPAY ==
--- NOTE | ~2024-12-25 | CT_ITS ---
CLINICAL HISTORY: sob, cp CT angiography chest with contrast. 3D Postprocessing. Comparison: CT/OR - CT ANGIO CHEST PE PROTOCOL - 10/10/24 07:48 EST Findings: The heart is mildly enlarged. The thoracic aorta is normal caliber. No pulmonary artery filling defects. The visualized thyroid and mediastinum are unremarkable. There are linear foci of atelectasis within the lower lungs. There is peribronchial thickening within the right lower lobe. No consolidation, pleural effusion or pneumothorax. Two adjacent right upper lobe nodules each measuring 5 mm in size on images 19 and 20. There is a small amount of free fluid within the bilateral upper quadrants. No acute fractures. IMPRESSION: 1. No evidence of pulmonary artery embolism. 2. There is a small amount of free fluid within the upper abdomen. 3. There is peribronchial thickening within the right lower lobe. This document has been electronically signed by: Shirley Pacheco MD on 12/25/2024 15:57:51
[2024-12-25 07:16] VITALS: BP 124/0; BP 130/0; PULSE 114; PULSE 116; RESP 24; TEMP 37; O2SAT 94; BMI 21.6
--- NOTE | 2024-12-25 07:25 | ED.GENADULT ---
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 He reports he smoked with a person in the alley he thinks it was laced with Narcan. He wonders why he is here. Police found him sitting on the stairs in an alley. No falls or traumas. He reports he just does not feel right after smoking the crack. Patient poor historian. Related Data Home Medications ?Medication ?Instructions ?Recorded ?Confirmed hydroxyzine HCl 50 mg tablet 50 mg PO TID PRN Anxiety 03/30/24 11/03/24 methadone 10 mg/mL oral 105 mg PO DAILY 09/13/24 12/25/24 concentrate (Methadone Intensol) albuterol sulfate 90 mcg/actuation 1 puff inhalation QID PRN wheezing 10/10/24 11/03/24 aerosol inhaler (Ventolin HFA) ferrous sulfate 325 mg (65 mg 325 mg PO DAILY 10/10/24 11/03/24 iron) tablet,delayed release magnesium oxide 400 mg PO DAILY 10/10/24 11/03/24 silver sulfadiazine 1 % topical 1 appl topical Q OTHER DAY 10/10/24 11/03/24 cream thiamine HCl (vitamin B1) 100 mg 100 mg PO DAILY 10/10/24 11/03/24 tablet (Vitamin B-1) rivaroxaban 20 mg tablet (Xarelto) 20 mg PO DAILY@1700 10/14/24 11/03/24 Previous Rx's ?Medication ?Instructions ?Recorded doxycycline monohydrate 100 mg 100 mg PO Q12H #8 caps 11/04/24 capsule rivaroxaban 20 mg tablet 20 mg PO DAILY #30 tabs 12/09/24 albuterol sulfate 90 mcg/actuation 2 inh inhalation Q4-6H PRN 12/25/24 breath activated powder inhaler shortness of breath or wheezing #1 ea doxycycline hyclate 100 mg capsule 100 mg PO BID 10 days #20 caps 12/25/24 naloxone 4 mg/actuation nasal 4 mg intranasal Q2M PRN opioid 12/25/24 spray (Narcan) overdose #2 ea Allergies Allergy/AdvReac Type Severity Reaction Status Date / Time No Known Allergies Allergy Verified 12/25/24 07:19 [No Known Allergies*] Review of Systems Review of Systems: Yes all other systems are reviewed and are negative [facility] Past Medical History Attestation statement: The following information was validated with the patient. Source: old records reviewed and nursing notes reviewed Medical History Rhabdomyolysis Anemia LUCERO (acute kidney injury) Polysubstance abuse Opioid use disorder Opioid use disorder, severe, dependence Substance abuse MSSA bacteremia Bacteremia Bacteremia Right heart failure Steatosis, liver Tricuspid valve stenosis Anasarca HCV (hepatitis C virus) Endocarditis Pulmonary embolism Surgical History History of tricuspid valve replacement with bioprosthetic valve Social History Social History Household Members: Other Household Members Other:: long term Housing: Homeless Do you presently have visiting nurse or other home services: No Unable to assess alcohol history related to: Refusing to respond Alcohol intake: current Alcohol intake frequency: 0-2 drinks per day Alcohol type: beer and hard liquor Patient Tobacco Use Status: Current everyday Tobacco user Tobacco use type: Cigarette Cigarette Packs Per Day: 1 Cigarettes Per Day: 10 Years Smoked: 10 Second Hand Smoke Exposure: No Use of substances other than those prescribed or required for medical reasons: Yes Substance Use Type: Crack/Cocaine Substance Use Frequency: Chronic Longstanding Last Used Substance: Just Prior to Admission Any prior treatment program specific to substance use: No Advance Directives: Yes Advance Directives on File: Yes Advance Directives Date on File: 04/16/21 service: No Current occupational status: unemployed Physical Exam ED Vital Signs: Vital Signs - 24 hr 12/25/24 07:16 12/25/24 09:05 12/25/24 15:33 Temperature 98.6 F 98.6 F Pulse Rate 116 H 108 H 87 Respiratory Rate 24 H 18 16 Blood Pressure 130/0 L 171/145 H 127/78 Pulse Oximetry 94 97 97 Oxygen Delivery Method Room Air Room Air Room Air BMI result Body Mass Index 21.6 Patient tachycardic however he is agitated Appearance: Alert.? Oriented X3.? No acute distress.? Head: Normocephalic, atraumatic, no step-offs or deformities Eyes: Pupils equal, round and reactive to light.? ENT: Pharynx normal.? Neck: Normal inspection.? Neck supple.? CVS: Rapid rate normal rhythm.? Pulses normal.? Respiratory: No respiratory distress.? Breath sounds normal.? Abdomen: Soft and nontender.? Skin: Skin warm and dry.? Normal skin color.? Normal skin turgor.?+ left lower extremity wound covered with Kerlix. Extremities: No lower extremity edema.? No calf ttp. 5/5 strength to bilateral upper and lower extremities Back: No midline tenderness, no C-spine tenderness, full range of motion, no CVA tenderness bilaterally Neuro: Oriented X 3.? No motor deficit.? No sensory deficit. CN 2-12 intact Course Reevaluation(s) Reevaluation #1: Patient now asking for help sitting up and refusign help from staff. Demanding food. And states he just wants to go to detox. Time: 08:30 Reevaluation #2: Initially when patient arrived he had no complaints he was not sure why he was here. He tells me he smoked some crack. He reported to nursing later on that he is having chest pain, however he is refusing all care, he says he can not sit up because he is stiff we ask if we can help him he says no fuck off . Nursing in the room and trying. Techs trying. He is essentially refusing care. He is screaming security has been at the bedside multiple times. Cursing. Tried redirecting multiple times. He demands food and drinks. He was given food and drinks and he continues to scream. Time: 08:41 Reevaluation #3: I again went to go speak to the patient and he says he has not received care. Security, nursing at the bedside. He is requesting to respectfully go to a different hospital Time: 08:50 Additional Reevaluation(s): 0940 Patient agreeable to labs at this time. 1230 CBC unremarkable, baseline microcytic anemia noted. Chemistry no acute findings needing intervention. He is noted to have transaminitis in a 2-1 fashion this is likely secondary to substance abuse/alcohol abuse. Total bili 1.2, no abdominal complaints. Patient's troponin initially 6.4 EKG nonischemic. Second troponin pending. D-dimer positive. CTA ordered. History and physical exam not consistent with endocarditis, myocarditis, pericarditis, ACS. Patient RSV positive. 1534 Second troponin 5.7 and lower than the initial. Imaging still pending CT CTA. Although he is RSV positive he is not having a cough. This can be handled with supportive measures. Will give him an inhaler in case he feels short of breath. 1607 CTA with no evidence of pulmonary artery embolism. Small amount of free fluid within the upper quadrant no abdominal pain on exam. There is peribronchial thickening within the right lower lobe. He is slightly short of breath. Will discharge him with an albuterol inhaler as well as doxycycline Educated patient on diagnosis and treatment plan, answered all question, patient verbalizes understanding. At this time patient will be discharged home, advised to return with new or worsening symptoms. Educated on worrisome signs and symptoms and when to return. At this time I feel comfortable discharge home. Medications Administered Discontinued Medications Generic Name Dose Route Start Last Admin Trade Name Tavia PRN Reason Stop Dose Admin Iohexol 100 ml 12/25/24 14:43 12/25/24 14:43 Iohexol 350 Mg/Ml 100 Ml Infus..Btl IV 12/25/24 14:44 85 ml ONCE ONE Administration Methadone HCl 105 mg 12/25/24 09:47 12/25/24 10:20 Methadone Hcl 20 Mg/2 Ml Oral.Conc PO 12/25/24 09:48 105 mg ONCE ONE Administration Medical Decision Making Medical Decision Making [facility] Narrative: 29-year-old male presents status post drug use. Reports why am I here... who brought me here Physical exam patient is agitated, screaming why am I here . No signs of acute trauma. Regular rate and rhythm. Lungs clear. Abdomen soft nontender nondistended. History and physical exam concerning for polysubstance abuse PCP versus crack versus heroin. No signs of acute trauma to head, neck, chest, abdomen or pelvis. Plan will wait for patient to be clinically sober. Security found 19 uncapped needles and paraphernalia Differential Diagnosis Differential Diagnoses: The differential diagnosis associated with the presentation includes (History and physical exam concerning for polysubstance abuse PCP versus crack versus heroin. No signs of acute trauma to head, neck, chest, abdomen or pelvis.) Admission/Observation Consideration of admission/observation: Escalation of care including admission/observation considered Lab Data MDM Lab Attestation statement: I reviewed the patient's lab results. 12/25/24 09:40 12/25/24 09:41 Labs: Lab Results 12/25/24 12/25/24 12/25/24 Range/Units 09:40 09:41 09:50 WBC 10.2 (4.8-10.8) X10*3/uL RBC 4.28 L (4.60-5.80) X10*6/uL Hgb 8.8 L (14.0-18.0) g/dl Hct 29.5 L (42.0-52.0) % MCV 68.9 L (80.0-98.0) fL MCH 20.6 L (27.0-33.0) pg MCHC 29.8 L (31.0-36.0) g/dl RDW 22.5 H (11.0-16.0) % Plt Count 380 D (160-400) X10*3/uL MPV 9.4 (9.4-12.4) fL Immature Gran % (Auto) 0.5 H (0.0-0.4) % Neut % (Auto) 77.4 H (45-73) % Lymph % (Auto) 11.5 L (20-40) % [place] % (Auto) 9.3 (2-11) % Eos % (Auto) 0.6 (0-4) % Baso % (Auto) 0.7 (0-2) % Lymph # (Auto) 1.2 (1.2-4.9) X10*3/uL [place] # (Auto) 0.9 (0.1-1.2) X10*3/uL Eos # (Auto) 0.1 (0.0-0.4) X10*3/uL Baso # (Auto) 0.1 (0.0-0.2) X10*3/uL Abs Immat Gran (auto) 0.05 H (0.00-0.03) X10*3/uL Absolute Neuts (auto) 7.9 (2.0-8.3) x10*3/uL Absolute Nucleated RBC 0.030 H (0.0-0.012) X10*3/uL Nucleated RBC % (auto) 0.3 H (0.0-0.2) /100WBC PT 21.7 H (10.9-12.4) SEC INR 1.9 H (0.9-1.1) D-Dimer High Sensitivty 413 NG/ML VBG pH 7.40 (7.32-7.43) VBG pCO2 29 mmHg VBG pO2 64 mmHg VBG HCO3 18 L (22-26) mmol/L VBG O2 Saturation 91.0 % VBG Base Excess -5.1 mmol/L Sodium 140 (135-145) mmol/L Potassium 3.8 (3.3-5.1) mmol/L Chloride 114 H (96-108) mmol/L Carbon Dioxide 17 L (22-29) mmol/L Anion Gap 13 (12-20) BUN 21 H (9-16) mg/dL Creatinine 0.76 (0.5-1.4) mg/dL Estim Creat Clear Calc 112.0 Estimated GFR > 60 Random Glucose 75 (60-115) mg/dL Lactic Acid 1.4 (0.5-2.0) mmol/L Calcium 8.9 (8.4-10.2) mg/dL Magnesium 1.8 (1.6-2.6) mg/dL Total Bilirubin 1.2 H (0.0-1.0) mg/dL AST 107 H (5-37) U/L ALT 51 H (0-40) U/L Alkaline Phosphatase 247 H (39-117) U/L Troponin I High Sens 6.4 D (<3.5-35.0) ng/L Total Protein 7.9 (6.5-8.0) g/dL Albumin 3.6 (3.5-5.0) g/dL Urine Opiates Screen (Not Detect) Ur Buprenorphine Scrn (Not Detect) ng/mL Ur Oxycodone Screen (Not Detect) ng/mL Urine Methadone Screen (Not Detect) ng/mL Urine Fentanyl Screen (Not Detect) Ur Barbiturates Screen (Not Detect) Ur Phencyclidine Scrn (Not Detect) Ur Amphetamines Screen (Not Detect) U Benzodiazepines Scrn (Not Detect) Urine Cocaine Screen (Not Detect) U Marijuana (THC) Screen (Not Detect) Ethyl Alcohol < 10 mg/dL Influenza Type A (PCR) NEGATIVE (Negative) Influenza Type B (PCR) NEGATIVE (Negative) RSV RNA Qual (PCR) POSITIVE A (Negative) SARS-CoV-2 RNA (RT-PCR) NEGATIVE (Negative) 12/25/24 12/25/24 Range/Units 14:10 Unknown WBC (4.8-10.8) X10*3/uL RBC (4.60-5.80) X10*6/uL Hgb (14.0-18.0) g/dl Hct (42.0-52.0) % MCV (80.0-98.0) fL MCH (27.0-33.0) pg MCHC (31.0-36.0) g/dl RDW (11.0-16.0) % Plt Count (160-400) X10*3/uL MPV (9.4-12.4) fL Immature Gran % (Auto) (0.0-0.4) % Neut % (Auto) (45-73) % Lymph % (Auto) (20-40) % [place] % (Auto) (2-11) % Eos % (Auto) (0-4) % Baso % (Auto) (0-2) % Lymph # (Auto) (1.2-4.9) X10*3/uL [place] # (Auto) (0.1-1.2) X10*3/uL Eos # (Auto) (0.0-0.4) X10*3/uL Baso # (Auto) (0.0-0.2) X10*3/uL Abs Immat Gran (auto) (0.00-0.03) X10*3/uL Absolute Neuts (auto) (2.0-8.3) x10*3/uL Absolute Nucleated RBC (0.0-0.012) X10*3/uL Nucleated RBC % (auto) (0.0-0.2) /100WBC PT (10.9-12.4) SEC INR (0.9-1.1) D-Dimer High Sensitivty NG/ML VBG pH (7.32-7.43) VBG pCO2 mmHg VBG pO2 mmHg VBG HCO3 (22-26) mmol/L VBG O2 Saturation % VBG Base Excess mmol/L Sodium (135-145) mmol/L Potassium (3.3-5.1) mmol/L Chloride (96-108) mmol/L Carbon Dioxide (22-29) mmol/L Anion Gap (12-20) BUN (9-16) mg/dL Creatinine (0.5-1.4) mg/dL Estim Creat Clear Calc Estimated GFR Random Glucose (60-115) mg/dL Lactic Acid (0.5-2.0) mmol/L Calcium (8.4-10.2) mg/dL Magnesium (1.6-2.6) mg/dL Total Bilirubin (0.0-1.0) mg/dL AST (5-37) U/L ALT (0-40) U/L Alkaline Phosphatase (39-117) U/L Troponin I High Sens 5.7 (<3.5-35.0) ng/L Total Protein (6.5-8.0) g/dL Albumin (3.5-5.0) g/dL Urine Opiates Screen Not Detected (Not Detect) Ur Buprenorphine Scrn Not Detected (Not Detect) ng/mL Ur Oxycodone Screen Not Detected (Not Detect) ng/mL Urine Methadone Screen Positive H (Not Detect) ng/mL Urine Fentanyl Screen POSITIVE H (Not Detect) Ur Barbiturates Screen Not Detected (Not Detect) Ur Phencyclidine Scrn Not Detected (Not Detect) Ur Amphetamines Screen Not Detected (Not Detect) U Benzodiazepines Scrn Not Detected (Not Detect) Urine Cocaine Screen POSITIVE H (Not Detect) U Marijuana (THC) Screen POSITIVE H (Not Detect) Ethyl Alcohol mg/dL Influenza Type A (PCR) (Negative) Influenza Type B (PCR) (Negative) RSV RNA Qual (PCR) (Negative) SARS-CoV-2 RNA (RT-PCR) (Negative) Independent Interpretation I performed an independent interpretation of an: EKG (Ventricular rate 118, WA normal, QRS normal, QT/QTC normal. Sinus tach no ST elevations or inversions concerning for acute ischemia) Radiology Impression Discussion of test interpretation with radiology: I have reviewed the radiologist's reading. Critical Care Time Critical Care Time Critical Care Time: Yes Total Critical Care Time: 35 Attestation: I attest to this time spent taking care of the patient, obtaining history, physical, reviewing labs, imaging, treatment of patients condition +/- specialist/hospitalist consult Discharge Plan Discharge Clinical Impression: Polysubstance abuse, Chest pain, Respiratory syncytial virus (RSV) Patient Disposition: Home, Self-Care Instructions: Chest Pain (ED), Respiratory Syncytial Virus (ED), Polysubstance Abuse (ED) Additional Instructions: Take your medications as prescribed. If you were prescribed antibiotics today, it is important that you take your medication to their entirety, do not skip any doses, do not finish them early. Follow-up with your primary care provider this week. Return to the emergency department with new or worsening symptoms. Such as fevers, chills, chest pain, shortness of breath, nausea, vomiting, dizziness, headache, vision changes, lethargy In case of emergency call 911 Prescriptions: New albuterol sulfate 90 mcg/actuation aerosol powdr breath activated 2 inh inhalation Q4-6H PRN (Reason: shortness of breath or wheezing) Qty: 1 0RF naloxone [Narcan] 4 mg/actuation spray,non-aerosol 4 mg intranasal Q2M PRN (Reason: opioid overdose) Qty: 2 0RF Rx Instructions: spray 1 dose into ONE nostril; alternate nostrils w each dose until help arrives doxycycline hyclate 100 mg capsule 100 mg PO BID 10 Days Qty: 20 0RF No Action methadone [Methadone Intensol] 10 mg/mL Concentrate 105 mg PO DAILY doxycycline monohydrate 100 mg Capsule 100 mg PO Q12H Qty: 8 0RF hydroxyzine HCl 50 mg Tablet 50 mg PO TID PRN (Reason: Anxiety) silver sulfadiazine 1 % cream 1 appl topical Q OTHER DAY thiamine HCl (vitamin B1) [Vitamin B-1] 100 mg Tablet 100 mg PO DAILY albuterol sulfate [Ventolin HFA] 90 mcg/actuation HFA aerosol inhaler 1 puff INHALATION QID PRN (Reason: wheezing) ferrous sulfate 325 mg (65 mg iron) tablet,delayed release (DR/EC) 325 mg PO DAILY magnesium oxide 400 mg magnesium Tablet 400 mg PO DAILY Xarelto 20 mg tablet 20 mg PO DAILY@1700 rivaroxaban 20 mg tablet 20 mg PO DAILY Qty: 30 0RF Rx Instructions: must administer with evening meal Referrals: Alba So [Primary Care Provider] - 2 days Print Language: Romansh
--- OUTSIDE RECORDS SUMMARY | 2024-12-25 07:40 | XMS_ITS ---
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 Role Phone Nirali Isbell Primary Care Provider Unavaila Michael Ortez Jr REASON FOR VISIT Patient presents today for ChRONIC HEP C Encounters Encounter Location Date Provider Diagnosis [facility] [address] [place] [id number] 09/24/2023 Michael Escamilla Jr Plan Of Treatment No Information Progress Notes * ALISON MYLESOB:1990 (34 yo M)Acc No.[id number]:09/24/2023 Progress Notes Patient:?RANDY MYLES Provider:?Michael Escamilla MD :1990???Age:32 Y???Sex:Male Parish e:09/24/2023 Address:[address] [place], [place] [id number] Pcp:SCOTTIE Gutierrez Subjective: * Chief Complaints: * ???1. Patient presents today for ChRONIC HEP C. * Medical History:? Objective: * Vitals:? Assessment: Plan: * Treatment: * * The named appointment provid er may or may not be the originator of this progress note, and it is not deemed complete until electronically signed by the appointment provider. Sign off status: Pending * Provider:?Michael Escamilla MD Date:?1 11/25/2022 Generated for Addi mulilns/Lana/eTransmitting on:?12/25/2024 07:40 AM EDT
--- OUTSIDE RECORDS SUMMARY | 2024-12-25 07:40 | XMS_ITS | Data Portability ---
Author Organization [facility] [employer] [facility], Main Office Address [address], [address] [place] [address] Care Team Providers Care Flap Maker Name Role Phone [facility] OTHER Assessment Encounter Date Assessment Date Assessment LastModified by Organization Details LastModified Time 04/09/2023 04/09/2023 04/01/23 wbc 6.8, hgb 9.2, plt 291, na 145, k 3.5, creat 0.9 04/08/23 na 140, k 3.8, creat 0.7 t bili 1.5, alk phos 144, ast/alt 13 [email or web address] Not available 04/09/2023 08:41:20 Plan of Treatment [...] Address Organization Details Recorded Time Septic shock 05198429 Active 2022 Martinez Rendon MD [address] [facility] [facility], [address], [place], [address], [employer] 3 15:13:19 Infective endocarditis of tricuspid valve 688879413 Active 2022 Martinez Rendon MD [address] [address] [facility], [address], [place], [address], [employer] 3 15:13:41 Pulmonary embolism 50042195 Active 2022 Martinez Rendon MD [address] [facility], [address], [place], [address], [place] [employer] 3 15:13:48 Chronic hepatitis C 243943412 Active 2022 Martinez Rendon MD [address], [address], [place], [address], [facility] [employer] [facility] 3 15:13:55 Anemia 056494718 Active 2022 Martinez Rendon MD [address], [address], [place], [address], [facility] [employer] [facility] 3 15:14:52 Cirrhosis of liver 16937353 Active 2022 Martinez Rendon MD [address], [address], [place], [address], [facility] [employer] [facility] 3 15:14:58 Congestive heart failure 45796555 Active 2022 Martinez Rendon MD [address], [address], [place], [address], [facility] [employer] [facility] 3 15:15:02 Polysubstance abuse 655300533 Active 2022 Martinez Rendon MD [address], [address], [place], [address], [facility] [employer] [facility] 3 15:15:08 Unsheltered homelessness Active 2022 Martinez Rendon MD [address], [address], [place], [address], [facility] [employer] [facility] 3 15:15:20 Tobacco user 760637286 Active 2022 Martinez Rendon MD [address], [address], [place], [address], [facility] [employer] [facility] 3 15:35:03 Primary insomnia 7289185 Active 2022 Martinez Rendon MD [address], [address], [place], [address], [facility] [employer] [facility] 3 15:34:02 Problem Notes None recorded. Medical Equipment None Reported. Allergies No known drug allergies Medications Not known to be on any medication Vitals None Recorded Social History Question Answer Notes LastModified by Organizat ion Details LastModified Time Tobacco Smoking Status Current Every Day Smoker Martinez Rendon MD [address] [facility] [address] [facility], [address], [place], [address], [facility] - [facility] 03/24/2023 15:12:49 What Is Your Level Of [...] SNOMED-CT Code Diagnosis ICD10 Code Diagnosis Note [id number] Martinez Rendon MD [facility] on [address] [place] [address] 03/24/2023 15:03:52 03/30/2023 15:17:15 Septic shock 87096716 R65.21 see HPInow onnafcilli n 2 gm q 4 for 26 daysadd probiotic bidmonitor cbcupdate ID with concerns Polysubstance abuse 4452 32819 F19.10 maintained onmethadon e 40 mg qdwill establish with clinicSUDS counselor at facility Infective endocarditis of tricuspid valve 043305551 I33.0 see HPIhx of TV endocardit is s/p bioprosthe tic TVR complicate d by bioprosthe tic valve stenosismo nitor for sxadded to PMHpatient is followed by CT surgery and cardiology at [facility] Pulmonary embolism 83407 003 I26.99 xarelto 20 mg qdmonitor respirator y status Chronic hepatitis C 1283 48180 B18.2 untreated with resultant cirrhosis of liver with hx etohwill refer to GI Cirrhosis of liver 007 K74.69 see above Anemia 733167218 D50.8 appears due to malnutriti on and iron deficiency monitor cbciron studies prndietary consult prn Congestive heart failure 14925018 I50.22 carrying dxmaintain ed on spironolac tone 25 mg qdmonitor respirator y status and need to titrate Unsheltere d homelessness [id number] 93976 Z59.02 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 y be barrier to dischargep atient with repeated AMA discharges added to PMH Tobacco user 646860210 Z 72.0 currently refusing nicotine patchis smoking at facilityco nsidering quitting, encouraged may start patch tomorrow [id number] Martinez Rendon MD [facility] on [address] [place] [address] 03/25/2023 15:30:14 03/30/2023 15:28:18 Primary insomnia 5827320 F51.01 see HPIwill starttraza done 25 mg qhs prnmonitor for effect and need to titrate Polysubstance abuse 4452 63426 F19.10 methadone 40 mg qdcurrentl y stable at baseline [id number] SCOTTIE Chen [facility] on [address] [place] [address] 03/30/2023 08:21:03 04/01/2023 10:41:27 Septic shock 34201916 R65.21 nafcillin 2 gm q 4 hrs til 04/19/23moni tor cbcf/u with ID s Polysubstance abuse 4452 31942 F19.10 methadone 40 mg qdf/u with methadone clinicSUDs counseling at facility Infective endocarditis of tricuspid valve 726276071 I33.0 hx of TV endocardit is s/p bioprosthe tic TVR complicate d by bioprosthe tic valve stenosispt notes sob intermitte ntly since TVR a couple of years agowaiting for CXR resultsfol lowed by CT surgery and cardiology at [facility] Pulmonary embolism 34457 003 I26.99 xarelto 20 mg qdmonitor resp status, bleeding risk Chronic hepatitis C 1283 54936 B18.2 untreated with resultant cirrhosis of liver with hx etohreferr ed to GI Cirrhosis of liver 007 K74.69 see above Anemia 153906175 D50.8 appears due to malnutriti on and iron deficiency monitor cbciron studies prndietary consult prn Congestive heart failure 90630714 I50.22 compensate dspironola ctone 25 mg qdmonitor respirator y status and need to titrate Unsheltere d homelessness 0388909025 31373 Z59.02 social media director involvedba rrier to dischargep atient with repeated AMA discharges Primary insomnia 7007276 F51.01 increase trazodone to 50 mg qhsmonitor for effect [id number] Martinez Rendon MD [facility] on [address] [place] [address] 03/31/2023 16:07:11 04/03/2023 16:00:10 Polysubstance abuse 550731056 F19.10 see HPImethado ne 40 mg qd currentlyp atient can f/u at methadone clinic for dose adjustment Septic shock 52540263 R6 5.21 nafcillin 2 gm q 4 to complete courserepe at cbc in am Pulmonary embolism 08708 003 I26.99 xarelto 20 mg qdmonitor respirator y statuswith atypical chest pain would consider CT imaging if symptoms changeto ED for acute decompensa tion [id number] Martinez Rendon MD [facility] on [address] [place] [address] 04/03/2023 15:42:16 04/06/2023 16:19:22 Atypical chest pain 730082214 R07.89 exam reassuring question underlying neuropathi c painwill start gabapentin 100 mg tid and followmoni tor need for chest CT depending on change in presentati on Septic shock 95837026 R6 5.21 see HPI with shock and endocardit isnafcilli n 2 gm q 4 for 26 days from admitmonit or cbcupdate ID with concernswb c count reassuring Polysubstance abuse 4452 86694 F19.10 methadone 40 mg qdSUDS counselor at facility Pulmonary embolism 01257 003 I26.99 xarelto 20 mg qdmonitor respirator y statuscont inuedsee above [id number] SCOTTIE Chen [facility] [address] [place] [address] 04/06/2023 14:52:36 04/13/2023 16:26:47 Septic shock 13286745 R65.21 nafcillin 2 gm q 4 hrs til 04/19/23moni tor cbcf/u with ID s Polysubstance abuse 4452 67231 F19.10 methadone 40 mg qdf/u with methadone clinicSUDs counseling at facility Infective endocarditis of tricuspid valve 067561732 I33.0 hx of TV endocardit is s/p bioprosthe tic TVR complicate d by bioprosthe tic valve stenosispt notes sob intermitte ntly since TVR a couple of years agonow somewhat worse with abd distension discussed with Dr Rendon, will get abd UL, nurse aware and will orderfollo wed by CT surgery and cardiology at [facility] Pulmonary embolism 86856 003 I26.99 xarelto 20 mg qdmonitor resp status, bleeding risk Chronic hepatitis C 1283 00423 B18.2 untreated with resultant cirrhosis of liver with hx etohreferr ed to GI Cirrhosis of liver K74.69 now with possible ascitesabd UL as aboveincre ase spironolac tone to 50 mg qd (was on 25 mg qd)monitor for worsening sxs Anemia 845918157 D50.8 appears due to malnutriti on and iron deficiency monitor cbciron studies prndietary consult prn Congestive heart failure 89903571 I50.22 increased sobspirono lactone 50 mg qd (as above)anoop tor respirator y status and need to titrate [id number] Martinez Rendon MD [facility] on [address] [place] [address] 04/07/2023 13:38:54 04/14/2023 09:58:52 Abdominal pain 71478863 R10.31 abd discomfort with distention ultrasound pendingCMP in ammonitor LFTs and need for GI referral Atypical chest pain 1025 41035 R07.89 see abovewill increase gabapentin to 200 mg tid and followmoni tor need for chest CT depending on change in presentati on Septic shock 66100082 R6 5.21 see HPI with shock and endocardit isnafcilli n 2 gm q 4 through 71monitor cbcupdate ID with concernswb c count reassuring [id number] SCOTTIE Chen [facility] on [address] [place] [address] 04/09/2023 08:34:52 04/22/2023 08:32:51 Infective endocarditis of tricuspid valve 166928981 I33.0 hx of TV endocardit is s/p bioprosthe tic TVR complicate d by bioprosthe tic valve stenosispt notes sob intermitte ntly since TVR a couple of years agowaiting for abd UL to be donefollow ed by CT surgery and cardiology at [facility] Cirrhosis of liver 69830 007 K74.69 now with possible ascitesabd UL as abovespiro nolactone 50 mg qdmonitor for worsening sxs Polysubstance abuse 4452 12046 F19.10 methadone 40 mg qddiscusse d with and will not add narcotic in pt with hx of polysubsta nce abuse - pain appears to be chronic in naturef/u with methadone clinicSUDs counseling at facility Septic shock 18580959 R6 5.21 nafcillin 2 gm q 4 hrs til 04/19/23moni tor cbcf/u with ID s Pulmonary embolism 90502 003 I26.99 xarelto 20 mg qdmonitor resp status, bleeding risk Chronic hepatitis C 1283 64005 B18.2 untreated with resultant cirrhosis of liver with hx etohreferr ed to GI Anemia 735773846 D50.8 appears due to malnutriti on and iron deficiency monitor cbciron studies prndietary consult prn Congestive heart failure 27633318 I50.22 stable todayspiro nolactone 50 mg qd (as above)anoop tor respirator y status and need to titrate Abdominal pain 14197182 R10.31 abd discomfort with distention ultrasound pendingCMP in ammonitor LFTs again on 04/13/23 and need for GI referral Atypical chest pain 1025 33842 R07.89 see abovegabap entin 200 mg tid and followmoni tor need for chest CT depending on change in presentati on [id number] Martinez Rendon MD [facility] on [address] [place] [address] 04/13/2023 15:29:49 04/22/2023 08:58:15 Polysubstance abuse 898303165 F19.10 maintained onmethadon e 40 mg qdwill write for oxycodone 5 mg q 8 prn breakthrou gh painthis will be discontinu ed at time of dischargep atient not to leave facility with oxycodone Infective endocarditis of tricuspid valve 450128765 I33.0 see HPIhx of TV endocardit is s/p bioprosthe tic TVR complicate d by bioprosthe tic valve stenosisco mplete Ab on 04/15 with ID signing off at this time Pulmonary embolism 32841 003 I26.99 xarelto 20 mg qdmonitor respirator y statushold day prior to paracentes is and day of procedure Chronic hepatitis C 1283 48150 B18.2 untreated with resultant cirrhosis of liver with hx etoh and now significan t asciteswil l refer to GI for further workup and evalwill refer to interventi onal radiology for paracentes iss Cirrhosis of liver 007 K74.69 see above [id number] Martinez Rendon MD [facility] on [address] [place] [address] 04/15/2023 13:43:11 04/22/2023 10:39:02 Infective endocarditis of tricuspid valve 835859234 I33.0 see HPIhx of TV endocardit is s/p bioprosthe tic TVR complicate d by bioprosthe tic valve stenosisan tibiotic completeID to set time to remove picc line Pulmonary embolism 20400 003 I26.99 xarelto 20 mg qdmonitor respirator y statushold day prior to paracentes is and day of procedure Polysubstance abuse 4452 61399 F19.10 maintained onmethadon e 40 mg qdoxycodon [...] for paracentes is Restlessne ss and agitation 634150509 R45.1 Patient verbally abusive and patronizin g [...] request psych eval if patient will accept [id number] SCOTTIE Chen [facility] on [address] [place] [address] 04/23/2023 12:25:55 04/29/2023 07:46:12 Infective endocarditis of tricuspid valve 894805810 I33.0 pt ok to discharge today to homeless shelterhx of TV endocardit is s/p bioprosthe tic TVR complicate d by bioprosthe tic valve stenosisco mpleted Ab on 04/15/23 with ID signing off at this timef/u with cards, pcp Pulmonary embolism 82777 003 I26.99 xarelto 20 mg qd - rx written for #30f/u with pcp Chronic hepatitis C 1283 13928 B18.2 untreated with resultant cirrhosis of liver with hx etoh and now significan t ascitesref erred to GI for further workup and evalpt refused paracentes is when he was sent out to [facility] ED Polysubstance abuse 4452 88705 F19.10 pt received his last dose methadone [...] Member ID Guarantor Name 04/07/2023 1 [place] [facility] Norberto Coriano [id number] Norberto Coriano 04/09/2023 1 [place] [facility] Norberto Coriano [id number] Norberto Coriano 04/13/2023 1 [place] Norberto Coriano [id number] Norberto Coriano 04/15/2023 1 [place] [facility] Norberto Coriano [id number] Norberto Coriano 04/23/2023 1 [place] Norberto Coriano [id number] Norberto Coriano Notes Date Note Type Note [...] requesting increase in gabapentin Martinez Rendon MD [address] [place] [address], [address], [place], [address], [facility] 04/07/2023 13:48:54 04/09/2023 text/html pt seen today [...] rib and back pain. SCOTTIE Chen [address] [facility], [address], [place], [address], [employer] 04/09/2023 14:32:40 04/13/2023 text/html Patient is a [...] with c/o pain Martinez Rendon MD [address] [facility] [address] [facility], [address], [place], [address], [facility] [employer] 04/13/2023 15:45:02 04/15/2023 text/html Patient is a [...] for theraputic paracentesis. Martinez Rendon MD [address] [facility] [address] [facility], [address], [place], [address], [employer] 04/15/2023 14:38:05 04/23/2023 text/html pt seen today fo r discharge summary. pt is discharging to a homeless [facility]. he has completed his antibiotics on 04/15/23 [...] nafcillin to complete course. SCOTTIE Chen [address] [facility] [address] [facility], [address], [place], [address], [facility] 04/23/2023 13:14:23
--- OUTSIDE RECORDS SUMMARY | 2024-12-25 07:40 | XMS_ITS ---
Author Organization [facility] Address [address] [place] [address] Care Team Providers Care Plate Corrector Name Role Phone Nirali Isbell Primary Care Provider Michael Mane Jr [phone] REASON FOR VISIT cancel OV Encounters Encounter Location Date Provider Diagnosis [facility] [address] [place] [address] 09/24/2023 Michael Escamilla Jr Plan Of Treatment No Information Progress Notes * ALISON MYLESOB:1990 (32 yo M)Acc No.[id number]:09/24/2023 Patient:?SHAR RANDY :1990???Age:32 Y???Sex:Male Address:[address] [place] [address], [place], [address] * true * Date:? Generated for Marthai harpreet/Lana/eTransmitting on:?12/25/2024 07:40 AM EDT
--- OUTSIDE RECORDS SUMMARY | 2024-12-25 07:40 | XMS_ITS | Clinical Summary ---
Author Organization [facility] Address [address] [place] [address], [place] [address] Care Team Providers Care Audio Visual Aide Name Role Phone Unavailable Primary Care Provider [...] age to complete this topic [place]
--- OUTSIDE RECORDS SUMMARY | 2024-12-25 07:40 | XMS_ITS | Patient Health Record ---
Author Organization [facility] Address [address] [place] [address] Care Team Providers Care Career Services Manager Name Role Phone Nirali Isbell Primary Care Provider Michael Mane Jr Unavailable Reason For Referral No Information Plan Of Treatment No Information Insurance Providers Payer Name Payer Address Payer Phone Subscriber Number Group Number Insured Name Patient Relationship to Insured Coverage Start Date Coverage End Date [place] [address] [place] [address] [id number] RANDY MYLES Self - patient is the insured
--- OUTSIDE RECORDS SUMMARY | 2024-12-25 07:40 | XMS_ITS ---
Author Organization [facility] Address [address] [place] [address] Care Team Providers Care Rotary Drill Operator Name Role Phone Nirali Isbell Primary Care Provider Michael Mane Jr REASON FOR VISIT new pt appt Encounters Encounter Location Date Provider Diagnosis [facility] [address] [place] [address] 09/28/2023 Michael Escamilla Jr Plan Of Treatment No Information Progress Notes * ALISON MYLESOB:1990 (32 yo M)Acc No.[id number]:09/28/2023 Patient:?SHAR RANDY :1990???Age:32 Y???Sex:Male Address:[address] [place] [address], [place], [address] * true * Date:? Generated for Marthai harpreet/Lana/eTransmitting on:?12/25/2024 07:40 AM EDT
--- NOTE | 2024-12-25 08:38 | MHC.EDTECH ---
pt observed screaming out to everyone walking by, requesting help and stating you guys are ignoring me and not helping me , stated he would like to talk to security, security was called and Tomas went to go see patient. pt then stating he was being neglected and needed help moving in bed due to being stiff and unable to move himself. this tech as well as two other RNs have offered to help him adjust in bed. pt refuses our help. PA aware. AMARILYS, RN and addiction recovery and security at bedside attempting to come up with plan of care.
--- NOTE | 2024-12-25 08:39 | ECG_ITS ---
Test Reason : CP Blood Pressure : */* mmHG Vent. Rate : 118 BPM Atrial Rate : 118 BPM P-R Int : 126 ms QRS Dur : 88 ms QT Int : 346 ms P-R-T Axes : 78 57 29 degrees QTcB Int : 484 ms Sinus tachycardia T wave abnormality, consider anterior ischemia Abnormal ECG When compared with ECG of 08-Dec-2024 23:19, Nonspecific T wave abnormality, improved in Inferior leads T wave inversion now evident in Anterior leads Nonspecific T wave abnormality, improved in Lateral leads Referred By: Fartun Farris Electronically Signed By: ANGÉLICA VILLANUEVA MD
[2024-12-25 09:05] VITALS: BP 171/145; PULSE 108; RESP 18; O2SAT 97
--- NOTE | 2024-12-25 09:49 | PC.NURSE ---
Pt came with EMS, pt was found in [address], asked someone to call 911, pt told EMS and this RN that he had smoked crack with a stranger within the hands parter. Pt was disoriented and refusing to sit still during triage, he was rolling and throwing himself around. Pt was not answering this RN or AMARILYS Diaz questions. Security at bedside to obtain belongings, pt did give belongings as he knew there was multiple paraphernalia in his belongings. Pt continues to swear and yell at multiple staff members. Multiple nursing staff, techs, and providers go to bedside to help patient however he refuses our help, continues to yell profanities at staff, pt manipulative with staff. Pt then states that no one is helping him, that we are just letting him sit here and rot and not treat him. Addiction RN at bedside talking with patient. Pt then begins to tell her a different story than what the ED staff had been told. Pt states he wants rehab, and his leg and chest are hurting. Pt has not been taking his blood thinner or antibiotic, has not gone to any follow ups. pt continues to smoke and inject crack cocaine. Pt has started to lay in bed without thrashing, methadone verified by AMARILYS Rogers aware. On arrival pt was refusing labs/EKG, vitals not accurate d/t pt thrashing, new vitals obtained once pt would sit still. campus safety officer stated she only needed a drug UA for rehab clearance, however then wanted us to obtain labs d/t pt stating his chest and leg hurt. This RN explained to her that we have been attempting and he has been refusing and continuing to be agitated with staff. Pt did let us obtain labs/EKG at this time. Pt has been brought multiple drinks/food on request.
[2024-12-25 09:50] LABS: MANUAL DIFF FLAG NO
--- NOTE | 2024-12-25 09:51 | HE.PHANOTE ---
RE: methadone Last dose 105mg 12[facility]23/24 at [facility]
--- NOTE | 2024-12-25 09:52 | MHC.EDTECH ---
PA orders bloodwork as well as an EKG, ekg obtained, with some guidance, pt tolerated ok. Continuing to make statements about poor quality care. Agreeable to bloodwork. disaster recovery consultant at bedside at time of draw, pt stuck 3 times due to poor blood flow. blood finally obtained and sent to lab PA aware. pt awaiting results at this time, given drinks and told we need urine sample when able. provided with urinal.
[2024-12-25 09:54] LABS: Venous Blood Gas Refer to POC result
[2024-12-25 09:54] LABS: VBG Base Excess -5.1 mmol/L; VBG HCO3 18 mmol/L (22-26); VBG pCO2 29 mmHg; VBG pO2 64 mmHg
[2024-12-25 10:11] LABS: Lactic Acid 1.4 mmol/L (0.5-2.0)
[2024-12-25 10:12] LABS: Basophils Absolute Auto 0.1 X10*3/uL (0.0-0.2); Basophils Percent Auto 0.7 % (0-2); Eosinophils Absolute Auto 0.1 X10*3/uL (0.0-0.4); Eosinophils Percent Auto 0.6 % (0-4); Hematocrit 29.5 % (42.0-52.0); Hemoglobin 8.8 g/dl (14.0-18.0); Imm Gran Abs Auto 0.05 X10*3/uL (0.00-0.03); Imm Gran Pct Auto 0.5 % (0.0-0.4); Lymphocytes Absolute Auto 1.2 X10*3/uL (1.2-4.9); Lymphocytes Percent Auto 11.5 % (20-40); Mean Corpuscular HGB Conc 29.8 g/dl (31.0-36.0); Mean Corpuscular Hemoglobin 20.6 pg (27.0-33.0); Mean Corpuscular Volume 68.9 fL (80.0-98.0); Mean Platelet Volume 9.4 fL (9.4-12.4); Monocytes Absolute Auto 0.9 X10*3/uL (0.1-1.2); Monocytes Percent Auto 9.3 % (2-11); NRBC Pct Auto 0.3 /100WBC (0.0-0.2); Neutrophils Absolute Auto 7.9 x10*3/uL (2.0-8.3); Neutrophils Percent Auto 77.4 % (45-73); Platelet Count 380 X10*3/uL (160-400); Red Blood Count 4.28 X10*6/uL (4.60-5.80); Red Cell Distribution Width 22.5 % (11.0-16.0); Troponin-I High Sensitivity 6.4 ng/L (<3.5-35.0); White Blood Count 10.2 X10*3/uL (4.8-10.8)
[2024-12-25 10:17] LABS: INTERNATIONAL NORM RATIO 1.9 (0.9-1.1); Prothrombin Time 21.7 SEC (10.9-12.4)
[2024-12-25] MEDS: methADONE HCl 20 MG/2 ML ORAL.CONC 105 MG PO (10:20)
[2024-12-25 10:21] LABS: Alanine Aminotransferase 51 U/L (0-40); Albumin Level 3.6 g/dL (3.5-5.0); Alkaline Phosphatase 247 U/L (39-117); Anion Gap 13 (12-20); Aspartate Amino Transferase 107 U/L (5-37); Bilirubin Total 1.2 mg/dL (0.0-1.0); Blood Urea Nitrogen 21 mg/dL (9-16); Calcium 8.9 mg/dL (8.4-10.2); Carbon Dioxide 17 mmol/L (22-29); Chloride 114 mmol/L (96-108); Estimated Glomerular Filt Rate > 60; Ethanol < 10 mg/dL; Glucose Random 75 mg/dL (60-115); Magnesium 1.8 mg/dL (1.6-2.6); Potassium 3.8 mmol/L (3.3-5.1); Sodium 140 mmol/L (135-145); Total Protein 7.9 g/dL (6.5-8.0)
--- NOTE | 2024-12-25 10:25 | PC.NURSE ---
This RN brought in pts Methadone, pt continues to not interact with staff, continues still thrashing his head around and rolling his eyes into the back of his head. This rn had to give pt his methadone as he would not take the syringes and do it himself.
--- NOTE | 2024-12-25 10:29 | MHC.RECOVRN ---
Met with Norberto in ED13 to discuss ongoing substance use. Pt stated that he recently got out of detox in [place], missed his methadone dose yesterday and used a dime bag of cocaine and a bag of fentanyl via the IV route while in the streets. Pt claims he believes there was narcan in a drink he was given by a peer and thus is experiencing withdrawals right now. Methadone dose was verified with [facility] in [place] and found that pt was last dosed on 12/23/2024 with 105 mg of methadone per NABEEL Keane. During the assessment pt was restless, agitated at staff, and poor historian at times. Pt denies SI/HI/AH/VH. Pt has an extensive medical history of unresolved issues including infective endocarditis, possible blood clots, and a wound on his L leg which per patient is painful and possibly infected. Due to this and per PA pt has not been medically cleared for detox and needs a medical admission. Pt is treatment seeking at the moment but has a history of treatment and medication noncompliance. Currently pt is cooperative and compliant. Will continue to monitor for changes. See recovery assessment for more info.
[2024-12-25 10:35] LABS: Influenza A PCR NEGATIVE (Negative); Influenza B PCR NEGATIVE (Negative); Resp Syncy Virus RNA Qual PCR POSITIVE (Negative); SARS COV2 PCR INHOUSE NEGATIVE (Negative)
[2024-12-25 11:03] LABS: D Dimer High Sensitivity 413 NG/ML
--- NOTE | 2024-12-25 11:55 | PC.NURSE ---
20g IV placed in L-FA pt to have CT angio. pt calm, however moaning, waving hands above his head, grinding teeth, and nodding off, awakes to verbal stimuli. plan of care ongoing
[2024-12-25 13:45] LABS: Amphetamine Screen Urine Not Detected (Not Detect); Barbiturates, Urine Not Detected (Not Detect); Benzodiazepines Screen Urine Not Detected (Not Detect); Buprenorphine Scr Not Detected (Not Detect); Cannabinoid Screen Urine POSITIVE (Not Detect); Cocaine Screen Urine POSITIVE (Not Detect); Fentanyl, urine POSITIVE (Not Detect); Methadone Screen, Urine Positive (Not Detect); Opiate Screen Urine Not Detected (Not Detect); Oxycodone Screen Urine Not Detected (Not Detect); Phencyclidine Screen Urine Not Detected (Not Detect)
--- NOTE | 2024-12-25 13:51 | PC.NURSE ---
pt provided with lunch- pt offers no complaints at [facility] time
[2024-12-25 14:35] LABS: Troponin-I High Sensitivity 5.7 ng/L (<3.5-35.0)
[2024-12-25] MEDS: iohexoL 350 MG/ML 100 ML INFUS..BTL IV (14:43)
[2024-12-25 15:33] VITALS: BP 127/78; PULSE 87; RESP 16; TEMP 37; O2SAT 97
[2024-12-25 17:11] VITALS: BP 127/78; PULSE 87; RESP 16; TEMP 37; O2SAT 97
== END 2024-12-25 17:11 | disposition home or self-care (01) ==
PROVIDERS: Physician Assistant; Emergency Provider Emergency Medicine; PCP Nurse Practitioner
DX: J22 Unspecified acute lower respiratory infection (principal); B97.4 Respiratory syncytial virus as the cause of diseases classified elsewhere; M79.10 Myalgia, unspecified site; F14.188 Cocaine abuse with other cocaine-induced disorder; R07.89 Other chest pain; Z03.818 Encounter for observation for suspected exposure to other biological agents ruled out; Z51.81 Encounter for therapeutic drug level monitoring; Z79.899 Other long term (current) drug therapy
CPT/HCPCS: 0241U; 36415; 71275; 80053; 80307; 82803; 83605; 83735; 84484; 85025; 85379; 85610; 87040; 93005; 99285; Q9967; S9485

== ENCOUNTER → 2024-12-25 08:39 | Outpatient (BNV) | payer MEDICAID, SELFPAY | PROVIDERS: Emergency Provider Emergency Medicine; PCP Nurse Practitioner; Visit Provider Internal Medicine Cardiovascular Disease | DX: R07.9 Chest pain, unspecified (principal); R00.0 Tachycardia, unspecified; R94.31 Abnormal electrocardiogram [ECG] [EKG] | CPT/HCPCS: 93010 ==

== ENCOUNTER → 2024-12-25 11:05 | Outpatient (BNV) | payer MEDICAID, SELFPAY | PROVIDERS: Emergency Provider Emergency Medicine; PCP Nurse Practitioner; Visit Provider Radiology Diagnostic Radiology | DX: J98.09 Other diseases of bronchus, not elsewhere classified (principal) | CPT/HCPCS: 71275 ==

== ENCOUNTER 2025-01-04 04:59 | Emergency (ER) | payer MEDICAID, SELFPAY ==
[2025-01-04 05:02] VITALS: PULSE 98; RESP 16; TEMP 36.6; O2SAT 97; BMI 22.1
--- NOTE | 2025-01-04 06:00 | ED.WOUNDLAC ---
HPI - Wound/Laceration General Chief Complaint: Wound/Laceration Stated Complaint: need dressing changed for wound Time Seen by Provider: 01/04/25 05:59 Source: patient Mode of arrival: ambulatory Limitations: no limitations History of Present Illness ED Provider: Dr. Kelly Mcgovern HPI narrative: Patient comes to the emergency room complaining of a bleeding varicose vein to the right lower leg. according to the patient, the varicose vein has been bleeding for over a day. Patient states that he [facility] . Patient admits to continue using heroin and cocaine. patient states that he is supposed to be on anticoagulation but admits that he is noncompliant and has not taking Eliquis since October Related Data Home Medications ?Medication ?Instructions ?Recorded ?Confirmed hydroxyzine HCl 50 mg tablet 50 mg PO TID PRN Anxiety 03/30/24 11/03/24 methadone 10 mg/mL oral 105 mg PO DAILY 09/13/24 12/25/24 concentrate (Methadone Intensol) albuterol sulfate 90 mcg/actuation 1 puff inhalation QID PRN wheezing 10/10/24 11/03/24 aerosol inhaler (Ventolin HFA) ferrous sulfate 325 mg (65 mg 325 mg PO DAILY 10/10/24 11/03/24 iron) tablet,delayed release magnesium oxide 400 mg PO DAILY 10/10/24 11/03/24 silver sulfadiazine 1 % topical 1 appl topical Q OTHER DAY 10/10/24 11/03/24 cream thiamine HCl (vitamin B1) 100 mg 100 mg PO DAILY 10/10/24 11/03/24 tablet (Vitamin B-1) rivaroxaban 20 mg tablet (Xarelto) 20 mg PO DAILY@1700 10/14/24 11/03/24 Previous Rx's ?Medication ?Instructions ?Recorded doxycycline monohydrate 100 mg 100 mg PO Q12H #8 caps 11/04/24 capsule rivaroxaban 20 mg tablet 20 mg PO DAILY #30 tabs 12/09/24 albuterol sulfate 90 mcg/actuation 2 inh inhalation Q4-6H PRN 12/25/24 breath activated powder inhaler shortness of breath or wheezing #1 ea doxycycline hyclate 100 mg capsule 100 mg PO BID 10 days #20 caps 12/25/24 naloxone 4 mg/actuation nasal 4 mg intranasal Q2M PRN opioid 03/09/25 spray (Narcan) overdose #2 ea Allergies Allergy/AdvReac Type Severity Reaction Status Date / Time No Known Allergies Allergy Verified 01/04/25 05:16 [No Known Allergies*] Review of Systems Review of Systems: Constitutional : No Weight loss, No Fever, No Chills, No Night Sweats, No Fatigue, No Malaise ENT/Mouth : No Hearing loss, No Ear Pain, No Nasal Congestion, No Sinus Pain, No Hoarseness, No sore throat, No Rhinorrhea, No Swallowing Difficulty Eyes: No Eye Pain, No Swelling, No Redness, No Foreign Body, No Discharge, No Vision Changes Cardiovascular : No Chest Pain, No SOB, No Dyspnea on Exertion, No Orthopnea, No Edema, No Palpitations Respiratory : No Cough, No Sputum, No Wheezing, No Smoke Exposure, No Dyspnea Gastrointestinal : No Nausea, No Vomiting, No Diarrhea, No Constipation, No abdominal Pain, No Hematochezia, No Melena Genitourinary : no irregular bleeding, No Dysuria, No Urinary Frequency, No Hematuria, No Urinary Incontinence, No Urgency, No Flank Pain, No Urinary Flow Changes, No Hesitancy Musculoskeletal : No joint pain, No Myalgias, No Joint Swelling Skin : Complaining of a bleeding varicose vein to the left lower Extremity Neuro : No Weakness, No Numbness, No Paresthesias, No Loss of Consciousness, No Dizziness, No Headache Psych : No Anxiety/Panic, No Depression, No SI/HI/AH/VH, No Social Issues, Heme/Lymph: No Bruising, No Bleeding,No Lymphadenopathy Endocrine : No Polyuria, No Polydipsia, No Temperature Intolerance PMFSH Past Medical History Medical History Rhabdomyolysis Anemia LUCERO (acute kidney injury) Polysubstance abuse Opioid use disorder Opioid use disorder, severe, dependence Substance abuse MSSA bacteremia Bacteremia Bacteremia Right heart failure Steatosis, liver Tricuspid valve stenosis Anasarca HCV (hepatitis C virus) Endocarditis Pulmonary embolism Surgical History History of tricuspid valve replacement with bioprosthetic valve Social History Social History Household Members: Other Household Members Other:: intermediate Housing: Homeless Do you presently have visiting nurse or other home services: No Unable to assess alcohol history related to: Refusing to respond Alcohol intake: current Alcohol intake frequency: 0-2 drinks per day Alcohol type: beer and hard liquor Patient Tobacco Use Status: Current everyday Tobacco user Tobacco use type: Cigarette Cigarette Packs Per Day: 1 Cigarettes Per Day: 10 Years Smoked: 10 Smoked in Last 30 Days: No Second Hand Smoke Exposure: No Use of substances other than those prescribed or required for medical reasons: Yes Substance Use Type: Heroin Advance Directives: No Advance Directives Information Provided: Yes Advance Directives Date on File: 04/16/21 Do you have a plan to hurt others: No Plan service: No Current occupational status: unemployed Physical Exam Vital Signs: Vital Signs: Last Vital Signs Temp 97.9 F 01/04/25 05:02 Pulse 98 01/04/25 05:02 Resp 16 01/04/25 05:02 Pulse Ox 97 01/04/25 05:02 O2 Del Method Room Air 01/04/25 05:02 BMI result Body Mass Index 22.1 Const: Other: Appearance: Alert. Oriented X3. under the influence of drugs, erratic behavior Eyes: Pupils equal, round and reactive to light. ENT: Pharynx normal. Neck: Normal inspection. Neck supple. No lymph nodes noted. No crepitus CVS: Normal heart rate and rhythm. Pulses normal. Normal S1 and S2 Respiratory: No respiratory distress. Breath sounds normal. No Wheezing. No rales Abdomen: Soft and nontender. No rigidity. No distention. Skin: Skin warm and dry. Normal skin color. Normal skin turgor. Extremities: No lower extremity edema. chronic varicose veins bilaterally. On the left side, there is a varicose vein that is bleeding significantly. A proximally 1 mm x 1 mm. Neuro: Oriented X 3. No motor deficit. No sensory deficit. Moving all extremities. No slurred speech. CN 2 through 12 grossly intact Psych: erratic behavior, seems to be under the influence of drugs Course Course Course Narrative: I discussed with the patient that the best next thing is to inject lidocaine with epinephrine and apply stitches to stop the bleeding. Patient absolutely refuses to have any lidocaine injected or any stitches. The only thing that we can do now is hold pressure. Surgicel was applied directly to the wound and Coban was applied around the Ankle. I discussed with the patient that even if it stops bleeding what awhile, this will continue bleeding intermittently. Patient states he does not care, refusing any other treatment. It has been good 15 minutes since we applied the coban Medical Decision Making Medical Decision Making MDM Narrative: my interpretation of labs: Patient's hematology at baseline. 07:00, patient has good capillary refill in the toes. There is no breakthrough bleeding patient is sleeping comfortably. earlier today, patient admitted to using heroin and cocaine. Unfortunately, patient has a tendency of bleeding quite a bit from the varicose veins this time, patient is too somnolent to be discharged at this time. Patient on the O2 monitor, oxygen saturation 96-98% sign-out given to my colleague Dr. Najera please remove Coban prior to dishcarge Lab Data 01/04/25 06:25 01/04/25 06:24 Labs: Lab Results 01/04/25 01/04/25 01/04/25 Range/Units 06:10 06:24 06:25 WBC 10.2 (4.8-10.8) X10*3/uL RBC 4.34 L (4.60-5.80) X10*6/uL Hgb 9.0 L (14.0-18.0) g/dl Hct 29.1 L (42.0-52.0) % MCV 67.1 L (80.0-98.0) fL MCH 20.7 L (27.0-33.0) pg MCHC 30.9 L (31.0-36.0) g/dl RDW 21.3 H (11.0-16.0) % Plt Count 294 (160-400) X10*3/uL MPV 8.8 L (9.4-12.4) fL Immature Gran % (Auto) 0.5 H (0.0-0.4) % Neut % (Auto) 60.2 (45-73) % Lymph % (Auto) 26.8 (20-40) % [place] % (Auto) 9.6 (2-11) % Eos % (Auto) 2.4 (0-4) % Baso % (Auto) 0.5 (0-2) % Lymph # (Auto) 2.7 (1.2-4.9) X10*3/uL [place] # (Auto) 1.0 (0.1-1.2) X10*3/uL Eos # (Auto) 0.3 (0.0-0.4) X10*3/uL Baso # (Auto) 0.1 (0.0-0.2) X10*3/uL Abs Immat Gran (auto) 0.05 H (0.00-0.03) X10*3/uL Absolute Neuts (auto) 6.1 (2.0-8.3) x10*3/uL Absolute Nucleated RBC 0.000 (0.0-0.012) X10*3/uL Nucleated RBC % (auto) 0.0 (0.0-0.2) /100WBC PT 28.9 H D (10.9-12.4) SEC INR 2.5 H (0.9-1.1) Sodium 137 (135-145) mmol/L Potassium 3.3 (3.3-5.1) mmol/L Chloride 111 H (96-108) mmol/L Carbon Dioxide 19 L (22-29) mmol/L Anion Gap 10 L (12-20) BUN 23 H (9-16) mg/dL Creatinine 0.98 (0.5-1.4) mg/dL Estim Creat Clear Calc 94.1 Estimated GFR > 60 Random Glucose 135 H (60-115) mg/dL Lactic Acid 1.5 (0.5-2.0) mmol/L Calcium 8.4 (8.4-10.2) mg/dL Total Bilirubin 1.2 H (0.0-1.0) mg/dL AST 256 H (5-37) U/L ALT 160 H (0-40) U/L Alkaline Phosphatase 198 H (39-117) U/L Total Protein 6.6 (6.5-8.0) g/dL Albumin 3.0 L (3.5-5.0) g/dL Urine Opiates Screen POSITIVE H (Not Detect) Ur Buprenorphine Scrn Not Detected (Not Detect) ng/mL Ur Oxycodone Screen Not Detected (Not Detect) ng/mL Urine Methadone Screen Positive H (Not Detect) ng/mL Urine Fentanyl Screen POSITIVE H (Not Detect) Ur Barbiturates Screen Not Detected (Not Detect) Ur Phencyclidine Scrn Not Detected (Not Detect) Ur Amphetamines Screen Not Detected (Not Detect) U Benzodiazepines Scrn Not Detected (Not Detect) Urine Cocaine Screen POSITIVE H (Not Detect) U Marijuana (THC) Screen Not Detected (Not Detect) Critical Care Time Critical Care Time Critical Care Time: Yes Total Critical Care Time: 45 Attestation: I have personally provided critical care time. Time includes review of lab data, radiology results, discussion with consultants, and monitoring for potential decompensation. Intervention performed as documented. Discharge Plan Discharge Clinical Impression: Bleeding from varicose vein, Polysubstance abuse Patient Disposition: Still a Patient Prescriptions: No Action methadone [Methadone Intensol] 10 mg/mL Concentrate 105 mg PO DAILY doxycycline monohydrate 100 mg Capsule 100 mg PO Q12H Qty: 8 0RF albuterol sulfate 90 mcg/actuation aerosol powdr breath activated 2 inh inhalation Q4-6H PRN (Reason: shortness of breath or wheezing) Qty: 1 0RF naloxone [Narcan] 4 mg/actuation spray,non-aerosol 4 mg intranasal Q2M PRN (Reason: opioid overdose) Qty: 2 0RF Rx Instructions: spray 1 dose into ONE nostril; alternate nostrils w each dose until help arrives doxycycline hyclate 100 mg capsule 100 mg PO BID 10 Days Qty: 20 0RF hydroxyzine HCl 50 mg Tablet 50 mg PO TID PRN (Reason: Anxiety) silver sulfadiazine 1 % cream 1 appl topical Q OTHER DAY thiamine HCl (vitamin B1) [Vitamin B-1] 100 mg Tablet 100 mg PO DAILY albuterol sulfate [Ventolin HFA] 90 mcg/actuation HFA aerosol inhaler 1 puff INHALATION QID PRN (Reason: wheezing) ferrous sulfate 325 mg (65 mg iron) tablet,delayed release (DR/EC) 325 mg PO DAILY magnesium oxide 400 mg magnesium Tablet 400 mg PO DAILY Xarelto 20 mg tablet 20 mg PO DAILY@1700 rivaroxaban 20 mg tablet 20 mg PO DAILY Qty: 30 0RF Rx Instructions: must administer with evening meal Print Language: Yoruba
[2025-01-04 06:33] LABS: Amphetamine Screen Urine Not Detected (Not Detect); Barbiturates, Urine Not Detected (Not Detect); Benzodiazepines Screen Urine Not Detected (Not Detect); Buprenorphine Scr Not Detected (Not Detect); Cannabinoid Screen Urine Not Detected (Not Detect); Cocaine Screen Urine POSITIVE (Not Detect); Fentanyl, urine POSITIVE (Not Detect); Methadone Screen, Urine Positive (Not Detect); Opiate Screen Urine POSITIVE (Not Detect); Oxycodone Screen Urine Not Detected (Not Detect); Phencyclidine Screen Urine Not Detected (Not Detect)
[2025-01-04 06:35] LABS: Basophils Absolute Auto 0.1 X10*3/uL (0.0-0.2); Basophils Percent Auto 0.5 % (0-2); Eosinophils Absolute Auto 0.3 X10*3/uL (0.0-0.4); Eosinophils Percent Auto 2.4 % (0-4); Hematocrit 29.1 % (42.0-52.0); Imm Gran Abs Auto 0.05 X10*3/uL (0.00-0.03); Imm Gran Pct Auto 0.5 % (0.0-0.4); Lymphocytes Absolute Auto 2.7 X10*3/uL (1.2-4.9); Lymphocytes Percent Auto 26.8 % (20-40); MANUAL DIFF FLAG NO; Mean Corpuscular HGB Conc 30.9 g/dl (31.0-36.0); Mean Corpuscular Hemoglobin 20.7 pg (27.0-33.0); Mean Corpuscular Volume 67.1 fL (80.0-98.0); Mean Platelet Volume 8.8 fL (9.4-12.4); Monocytes Percent Auto 9.6 % (2-11); Neutrophils Absolute Auto 6.1 x10*3/uL (2.0-8.3); Neutrophils Percent Auto 60.2 % (45-73); Platelet Count 294 X10*3/uL (160-400); Red Blood Count 4.34 X10*6/uL (4.60-5.80); Red Cell Distribution Width 21.3 % (11.0-16.0); White Blood Count 10.2 X10*3/uL (4.8-10.8)
[2025-01-04 06:41] LABS: INTERNATIONAL NORM RATIO 2.5 (0.9-1.1); Prothrombin Time 28.9 SEC (10.9-12.4)
[2025-01-04 07:01] LABS: Lactic Acid 1.5 mmol/L (0.5-2.0)
--- NOTE | 2025-01-04 07:08 | PC.NURSE ---
initial dressing soiled with dirt, dried blood. upon removal, thin stream of blood began squirting out of small wound. pressure applied, held. MD at bedside. surgicell and coban applied. leg elevated above heart. no evidence bleeding/drainage from dressing at this time. of note, small wound medial to burst varicose vein. pt states he follows with wound care. pt given apple juice. now sleeping in stretcher, call pierce in reach
[2025-01-04 07:11] LABS: Alanine Aminotransferase 160 U/L (0-40); Anion Gap 10 (12-20); Aspartate Amino Transferase 256 U/L (5-37); Bilirubin Total 1.2 mg/dL (0.0-1.0); Blood Urea Nitrogen 23 mg/dL (9-16); Calcium 8.4 mg/dL (8.4-10.2); Carbon Dioxide 19 mmol/L (22-29); Chloride 111 mmol/L (96-108); Creatinine Clr Calc Pharmacy 94.1; Estimated Glomerular Filt Rate > 60; Glucose Random 135 mg/dL (60-115); Potassium 3.3 mmol/L (3.3-5.1); Sodium 137 mmol/L (135-145); Total Protein 6.6 g/dL (6.5-8.0)
[2025-01-04 07:12] LABS: Alkaline Phosphatase 198 U/L (39-117)
[2025-01-04 07:38] VITALS: BP 109/68; PULSE 93; RESP 18; TEMP 36.9; O2SAT 98
[2025-01-04 09:30] VITALS: BP 109/68; PULSE 93; RESP 18; TEMP 36.9; O2SAT 98
== END 2025-01-04 09:30 | disposition home or self-care (01) ==
PROVIDERS: Emergency Medicine; Emergency Provider Emergency Medicine
DX: I83.891 Varicose veins of right lower extremity with other complications (principal); F11.10 Opioid abuse, uncomplicated; F14.10 Cocaine abuse, uncomplicated; F17.210 Nicotine dependence, cigarettes, uncomplicated; Z71.51 Drug abuse counseling and surveillance of drug abuser; Z79.899 Other long term (current) drug therapy; Z91.148 Patient's other noncompliance with medication regimen for other reason; Z51.81 Encounter for therapeutic drug level monitoring
CPT/HCPCS: 36415; 80053; 80307; 83605; 85025; 85610; 87040; 99284

== ENCOUNTER 2025-01-24 22:48 | Emergency (ER) | payer MEDICAID, SELFPAY ==
--- NOTE | ~2025-01-24 | US_ITS ---
CLINICAL HISTORY: left leg pain and swelling Venous duplex ultrasound left lower extremity Comparison: US/NV/SR - US VENOUS DUPLEX LE LT - 11/03/24 09:58 EST Findings: The visualized deep veins are fully compressible with normal Doppler color flow and spectral tracings. No popliteal cyst. Redemonstrated prominent inguinal nodes measuring up to 2.7 cm with maintained reniform morphology and echogenic fatty susana, nonspecific. Mildly diffuse lower extremity soft tissue edema [id number] IMPRESSION: 1. Negative for left lower extremity deep vein thrombosis. This document has been electronically signed by: Elijah Cunningham MD on 01/25/2025 03:01:21
--- NOTE | ~2025-01-24 | XR_ITS ---
CLINICAL HISTORY: cough sob 2 view chest x-ray Comparison: CR - XR CHEST 2V - 12/08/24 23:35 EST Findings: The lungs are clear. Normal size heart. Similar abandoned left-sided epicardial pacing leads. No acute fracture. Median sternotomy wires and plates. IMPRESSION: 1. No acute findings. This document has been electronically signed by: Elijah Cunningham MD on 01/25/2025 00:23:05
[2025-01-24 22:51] VITALS: BP 134/88; PULSE 107; RESP 18; TEMP 36.4; O2SAT 95; BMI 22.5
[2025-01-24 23:43] LABS: MANUAL DIFF FLAG NO
[2025-01-24 23:44] LABS: Basophils Absolute Auto 0.1 X10*3/uL (0.0-0.2); Basophils Percent Auto 0.8 % (0-2); Eosinophils Absolute Auto 0.2 X10*3/uL (0.0-0.4); Eosinophils Percent Auto 2.4 % (0-4); Hematocrit 27.8 % (42.0-52.0); Hemoglobin 8.3 g/dl (14.0-18.0); Imm Gran Abs Auto 0.05 X10*3/uL (0.00-0.03); Imm Gran Pct Auto 0.7 % (0.0-0.4); Lymphocytes Absolute Auto 1.7 X10*3/uL (1.2-4.9); Mean Corpuscular HGB Conc 29.9 g/dl (31.0-36.0); Mean Corpuscular Hemoglobin 20.1 pg (27.0-33.0); Mean Corpuscular Volume 67.3 fL (80.0-98.0); Mean Platelet Volume 9.4 fL (9.4-12.4); Monocytes Absolute Auto 0.8 X10*3/uL (0.1-1.2); Neutrophils Absolute Auto 4.7 x10*3/uL (2.0-8.3); Neutrophils Percent Auto 62.1 % (45-73); Platelet Count 420 X10*3/uL (160-400); Red Blood Count 4.13 X10*6/uL (4.60-5.80); Red Cell Distribution Width 22.8 % (11.0-16.0); White Blood Count 7.5 X10*3/uL (4.8-10.8)
[2025-01-25 00:06] LABS: Alanine Aminotransferase 24 U/L (0-40); Albumin Level 3.1 g/dL (3.5-5.0); Alkaline Phosphatase 189 U/L (39-117); Anion Gap 10 (12-20); Aspartate Amino Transferase 41 U/L (5-37); Bilirubin Total 0.8 mg/dL (0.0-1.0); Blood Urea Nitrogen 14 mg/dL (9-16); Calcium 8.4 mg/dL (8.4-10.2); Carbon Dioxide 21 mmol/L (22-29); Chloride 112 mmol/L (96-108); Creatinine Clr Calc Pharmacy 112.2; Estimated Glomerular Filt Rate > 60; Glucose Random 108 mg/dL (60-115); Potassium 3.8 mmol/L (3.3-5.1); Sodium 139 mmol/L (135-145); Total Protein 6.6 g/dL (6.5-8.0)
[2025-01-25 00:20] LABS: Influenza A PCR NEGATIVE (Negative); Influenza B PCR NEGATIVE (Negative); Resp Syncy Virus RNA Qual PCR NEGATIVE (Negative); SARS COV2 PCR INHOUSE NEGATIVE (Negative)
--- OUTSIDE RECORDS SUMMARY | 2025-01-25 00:22 | XMS_ITS | Encounter Summary ---
Author Organization [employer] Address [address] [facility] [address] [place] [address] Care Team Providers Care Development And Housing Director Name Role Phone Nirali Lott Primary Care Provider [phone] Alba So NP Primary Care Provider [phone] Encounter Details Date Type Department Care Team (Late st Contact Info) Description 10/27/2023 Orders Only [facility] MED [facility] PEDS [address] [place] [address] Nirali Lott FNP [address] [place] [address] Infective endocarditis of tricuspid valve (Primary Dx) [...] t he electric, gas, oil or water [employer] threatened to shut off services in your [...] as of this encounter Plan of Treatment Upcoming Encounters Date Type Department Care Team (Late st Contact Info) Description 01/27/2025 2:00 PM EDT Office Visit [facility] MEDICINE [address] [place] [address] Alba So NP [address] [place] [address] documented as of this encounter Procedures Procedure Name Priority Date/Time Associated Diagnosis Comments CT LIVER 3 PHASE Routine 10/27/2023 4:35 PM EST documented in this encounter Results * CT liver 3 phase (10/27/2023 4:35 PM EST) Anatomical Region Laterality Modality Liver Computed Tomogra phy 10/27/2023 4:35 PM EST Narrative 11/02/2023 11:06 AM EST ? [facility] ?[address] ?[place] [address] ? CT Scan Report ? Signed ? Patient: Norberto Marquez ?MR#: [id number] ? : 1990 ?Acct:[id number] ? Age/Sex: 33 / M ?ADM Date: 10/27/23 ? Loc: HO.CT ? Attending Dr: Randa Chisholm MD ? Ordering Physician: Randa Chisholm MD ?? Date of Service: 10/27/23 ?? Procedure(s): CT liver 3 phase ?? Accession Number(s): [id number] ? cc: Randa Chisholm MD; [facility] ? EXAMINATION: ?? CT ABDOMEN without and [...] 1101 ? DD/ 1635 ? TD/TT: ? Auxiliary Equipment Tender: SS ? Procedure Note Pieter, Jonathan - 11/03/[address] [place] [address] [address] Scan Report Signed Patient: Zully Marquez#: [id number] : 1990Acct:[id number] Age/Sex: 33 / MADM Date: 10/27/23 Loc: HO.CT Attending Dr: Randa Chisholm MD Ordering Physician: Randa Chisholm MD Date of Service: 10/27/23 Procedure(s): CT liver 3 phase Accession Number(s): [id number] cc: Randa Chisholm MD; [facility] EXAMINATION: CT ABDOMEN without and WITH CONTRAST [...] in OV> 11/02/23 1101 DD/ 1635 TD/TT: Auxiliary Equipment Tender: ELIEZER [facility] External Provider IMG CT PROCEDURES Final Result documented in this encounter Visit Diagnoses Diagnosis Infective endocarditis of tricuspid valve- Primary documented in this encounter Additional Health Concerns Assessment Noted Time PHQ-9 Depression Total Score: 0 06/03/20 23 10:05 AM EDT documented as of this encounter Care Teams Development And Housing Director Relationship Specialty Start Date End Date Nirali Lott FNP [address] [place] [address] PCP - General Family Medicine 07/09/23 04/13/24 Alba So NP [address] [place] [address] PCP - General Family Medicine 04/14/24 documented as of this encounter
--- OUTSIDE RECORDS SUMMARY | 2025-01-25 00:22 | XMS_ITS | Patient Health Record ---
Author Organization [facility] Address [address] [place] [address] Care Team Providers Care Home Energy Inspector Name Role Phone Nirali Isbell Primary Care Provider Michael Mane Jr Unavailable Reason For Referral No Information Plan Of Treatment No Information Insurance Providers Payer Name Payer Address Payer Phone Subscriber Number Group Number Insured Name Patient Relationship to Insured Coverage Start Date Coverage End Date [place] [address] [place] [address] [id number] RANDY MYLES Self - patient is the insured
--- OUTSIDE RECORDS SUMMARY | 2025-01-25 00:22 | XMS_ITS | Encounter Summary ---
Author Organization [employer] Address [address] [facility] 7t [place] [address] Care Team Providers Care Door Liner Helper Name Role Phone Nirali Lott Primary Care Provider [phone] Alba So NP Primary Care Provider [phone] Reason for Visit * Reason Onset Date Comments Referral 10/16/2023 Encounter Details Date Type Department Care Team ([facility] Contact Info) Description 10/16/2023 Telephone [facility] MEDICINE [address] [place] [address] Nirali Lott FNP [address] [place] [address] Referral Social History Tobacco Use Types Packs/Day [...] - 10/16/2023 10:22 AM EST Tc from [facility]o never received referral. documented in this encounter Plan of Treatment Upcoming Encounters Date Type Department Care Team (Late st Contact Info) Description 01/27/2025 2:00 PM EDT Office Visit [facility] MED[facility]INE [address] [place] [address] Alba So NP [address] [place] [address] documented as of this encounter Visit Diagnoses Not on filedocumented in this encounter Additional Health Concerns Assessment Noted Time PHQ-9 Depression Total Score: 0 06/03/20 23 10:05 AM EDT documented as of this encounter Care Teams Door Liner Helper Relationship Specialty Start Date End Date Nirali Lott FNP [address] [place] [address] PCP - General Family Medicine 07/09/23 04/13/24 Alba So NP [address] [place] [address] PCP - General Family Medicine 04/14/24 documented as of this encounter
--- OUTSIDE RECORDS SUMMARY | 2025-01-25 00:22 | XMS_ITS | Encounter Summary ---
Author Organization [facility] Address [address] [facility] 7[address] [place] [address] Care Team Providers Care Educational Psychology Teacher Name Role Phone Alba So NP Primary Care Provider [phone] Reason for Visit * Reason Onset Date Comments Hospital Follow-up 09/30/2024 Encounter Details Date Type Department Care Team ([facility] st Contact Info) Description 09/30/2024 Telephone [facility] MEDICINE [address] [place] [address] Alba So NP [address] [place] [address] Hospital Follow-up Social History Tobacco Use Types [...] with others, in a hotel, in a [place] [facility] [place], living outside on the street, on a [...] from pt requesting a HDF appt. Hospital: [facility] Date of admission: 09/23/24 Discharge date: 09/29/24 Diagnosed: Pneumonia / SOB / Chest pain *Send message to [place] [facility] Care Coordinators documented in this encounter Plan of Treatment Upcoming Encounters Date Type Department Care Team (Late st Contact Info) Description 01/27/2025 2:00 PM EDT Office Visit [facility] MED[facility]INE [address] [place] [address] Alba So NP [address] [place] [address] documented as of this encounter Visit Diagnoses Not on filedocumented in this encounter Additional Health Concerns Assessment Noted Time PHQ-9 Depression Total Score: 0 06/03/20 23 10:05 AM EDT documented as of this encounter Care Teams Educational Psychology Teacher Relationship Specialty Start Date End Date Alba So NP [address] [place] [address] PCP - General Family Medicine 04/14/24 documented as of this encounter
--- OUTSIDE RECORDS SUMMARY | 2025-01-25 00:22 | XMS_ITS | Encounter Summary ---
Author Organization [employer] Address [address] [facility] [address] [place] [address] Care Team Providers Care Major General Name Role Phone Alba So GENEVA Primary Care Provider [phone] Encounter Details Date Type Department Care Team (Late st Contact Info) Description 04/26/2024 Orders Only [facility] MEDICINE [address] [place], [place] [id number] Varun Givens, PharmD [address] [place] [address] Social History Tobacco Use Types Packs/Day Years [...] with others, in a hotel, in a assisted, living outside on the street, on a [...] Description 01/27/2025 2:00 PM EDT Office Visit [facility] MED[facility]INE [address] [place] [address] Alba So NP [address] [place] [address] documented as of this encounter Visit Diagnoses Not on filedocumented in this encounter Additional Health Concerns Assessment Noted Time PHQ-9 Depression Total Score: 0 06/03/20 23 10:05 AM EDT documented as of this encounter Care Teams Major General Relationship Specialty Start Date End Date Alba So NP [address] [place] [address] PCP - General Family Medicine 04/14/24 documented as of this encounter
--- OUTSIDE RECORDS SUMMARY | 2025-01-25 00:22 | XMS_ITS | Encounter Summary ---
Author Organization [employer] Address [address] [facility] [address] [place] [address] Care Team Providers Care Retail Support Manager Name Role Phone Nirali Lott Primary Care Provider [phone] Alba So NP Primary Care Provider [phone] Reason for Visit * Reason Onset Date Comments PT1 10/02/2023 Encounter Details Date Type Department Care Team ([facility] Contact Info) Description 10/02/2023 Telephone [facility] [address] [place] [address] Nirali Lott FNP [address] [place] [address] PT1 Social History Tobacco Use Types Packs/Day [...] 10/02/2023 11:00 AM EST PT-1 Request Number [id number] is Pending * Telephone Encounter - Christine Mak - 10/02/2023 10:32 AM EST Tc [facility] with [facility] requesting PT1 transportation. Date: 10/20/2022 Time: 10:15 Visits: 12 a year Address: [address] [place] [address] Facility: [facility] Wheel Chair: n/a Driver Guard Needed: n/a documented in this encounter Plan of Treatment Upcoming Encounters Date Type Department Care Team (Late st Contact Info) Description 01/27/2025 2:00 PM EDT Office Visit [facility] [address] [place] [address] Alba So NP [address] [place] [address] documented as of this encounter Visit Diagnoses Not on filedocumented in this encounter Additional Health Concerns Assessment Noted Time PHQ-9 Depression Total Score: 0 06/03/20 23 10:05 AM EDT documented as of this encounter Care Teams Retail Support Manager Relationship Specialty Start Date End Date Nirali Lott FNP [address] [place] [address] PCP - General Family Medicine 07/09/23 04/13/24 Alba So NP [address] [place] [address] PCP - General Family Medicine 04/14/24 documented as of this encounter
--- OUTSIDE RECORDS SUMMARY | 2025-01-25 00:22 | XMS_ITS ---
Author Organization [facility] Address [address] [place] [address] Care Team Providers Care Fruit And Vegetable Factory Worker Name Role Phone Nirali Isbell Primary Care Provider Unavaila Michael Ortez Jr REASON FOR VISIT Patient presents today for ChRONIC HEP C Encounters Encounter Location Date Provider Diagnosis [facility] [address] [place] [address] 09/24/2023 Michael Escamilla Jr Plan Of Treatment No Information Progress Notes * ALISON MYLESOB:1990 (34 yo M)Acc No.[id number]:09/24/2023 Progress Notes Patient:?RANDY MYLES Provider:?Michael Escamilla MD :1990???Age:32 Y???Sex:Male Parish e:09/24/2023 Address:[address] [place], [place] [id number] Pcp:SCOTTIE Gutierrez Subjective: * Chief Complaints: * [...] Escamilla MD Date:?1 11/25/2022 Generated for Addi mullins/Lana/eTransmitting on:?01/25/2025 12:22 AM EDT
--- OUTSIDE RECORDS SUMMARY | 2025-01-25 00:22 | XMS_ITS | Encounter Summary ---
Author Organization [facility] Address [address] [facility] 7t [place] [address] Care Team Providers Care Search Engine Marketing Strategist Name Role Phone Nirali Lott Primary Care Provider [phone] Alba So NP Primary Care Provider [phone] Reason for Visit * Reason Onset Date Comments Hospital Follow-up 04/05/2024 Encounter Details Date Type Department Care Team ([facility] st Contact Info) Description 04/05/2024 Telephone [facility] [address] [place] [address] Nirali Lott FNP [address] [place] [address] Hospital Follow-up Social History Tobacco Use Types [...] with others, in a hotel, in a prison, living outside on the street, on a [...] encounter Miscellaneous Notes * Telephone Encounter - Jose Salinas - 04/05/2024 12:52 PM EDT Tc from pt requesting a HDF appt. Hospital: [facility] Date of admission: 03/30 Discharge date: 04/01 Diagnosed: Chest Pain documented in this encounter Plan of Treatment Upcoming Encounters Date Type Department Care Team (Late st Contact Info) Description 01/27/2025 2:00 PM EDT Office Visit [facility] [address] [place] [address] Alba So NP [address] [place] [address] documented as of this encounter Visit Diagnoses Not on filedocumented in this encounter Additional Health Concerns Assessment Noted Time PHQ-9 Depression Total Score: 0 06/03/20 23 10:05 AM EDT documented as of this encounter Care Teams Search Engine Marketing Strategist Relationship Specialty Start Date End Date Nirali Lott FNP [address] [place] [address] PCP - General Family Medicine 07/09/23 04/13/24 Alba So NP [address] [place] [address] PCP - General Family Medicine 04/14/24 documented as of this encounter
--- OUTSIDE RECORDS SUMMARY | 2025-01-25 00:23 | XMS_ITS | Data Portability ---
Author Organization [facility], Main Office Address [address] [facility], [address] [place] [address] Care Team Providers Care Nursing Home Director Name Role Phone [facility] OTHER Assessment Encounter Date Assessment Date Assessment LastModified by Organization Details LastModified Time 04/09/2023 04/09/2023 04/01/23 wbc 6.8, hgb 9.2, plt 291, na 145, k 3.5, creat 0.9 04/08/23 na 140, k 3.8, creat 0.7 t bili 1.5, alk phos 144, ast/alt 13 [email or web address] Not available 04/09/2023 08:41:20 Plan of Treatment [...] Address Organization Details Recorded Time Septic shock 46371583 Active 2022 Martinez Rendon MD [address] [facility], [address], [place], [address], [facility] 3 15:13:19 Infective endocarditis of tricuspid valve 028250034 Active 2022 Martinez Rendon MD [address] [facility], [address], [place], [address], [facility] 3 15:13:41 Pulmonary embolism 34557289 Active 2022 Martinez Rendon MD [address] [facility], [address], [place], [address], [place] [facility] 3 15:13:48 Chronic hepatitis C 439463961 Active 2022 Martinez Rendon MD [address], [address], [place], [address], [facility] 3 15:13:55 Anemia 347539766 Active 2022 Martinez Rendon MD [address], [address], [place], [address], [facility] 3 15:14:52 Cirrhosis of liver 61009014 Active 2022 Martinez Rendon MD [address], [address], [place], [address], [facility] 3 15:14:58 Congestive heart failure 52290402 Active 2022 Martinez Rendon MD [address], [address], [place], [address], [facility] 3 15:15:02 Polysubstance abuse 631324197 Active 2022 Martinez Rendon MD [address], [address], [place], [address], [facility] 3 15:15:08 Unsheltered homelessness Active 2022 Martinez Rendon MD [address], [address], [place], [address], [facility] 3 15:15:20 Tobacco user 415059840 Active 2022 Martinez Rendon MD [address], [address], [place], [address], [facility] 3 15:35:03 Primary insomnia 3933275 Active 2022 Martinez Rendon MD [address], [address], [place], [address], [facility] 3 15:34:02 Problem Notes None recorded. Medical Equipment None Reported. Allergies No known drug allergies Medications Not known to be on any medication Vitals None Recorded Social History Question Answer Notes LastModified by Organizat ion Details LastModified Time Tobacco Smoking Status Current Every Day Smoker Martinez Rendon MD [address] [facility], [address], [place], [address], [facility] 03/24/2023 15:12:49 What Is Your Level Of [...] SNOMED-CT Code Diagnosis ICD10 Code Diagnosis Note [id number] Martinez Rendon MD [facility] on [address] [place] [address] 03/24/2023 15:03:52 03/30/2023 15:17:15 Septic shock 16121541 R65.21 see HPInow onnafcilli n 2 gm q 4 for 26 daysadd probiotic bidmonitor cbcupdate ID with concerns Polysubstance abuse 4452 02504 F19.10 maintained onmethadon e 40 mg qdwill establish with clinicSUDS counselor at facility Infective endocarditis of tricuspid valve 391181886 I33.0 see HPIhx of TV endocardit is s/p bioprosthe tic TVR complicate d by bioprosthe tic valve stenosismo nitor for sxadded to PMHpatient is followed by CT surgery and cardiology at [facility] Pulmonary embolism 96018 003 I26.99 xarelto 20 mg qdmonitor respirator y status Chronic hepatitis C 1283 36225 B18.2 untreated with resultant cirrhosis of liver with hx etohwill refer to GI Cirrhosis of liver 007 K74.69 see above Anemia 321607773 D50.8 appears due to malnutriti on and iron deficiency monitor cbciron studies prndietary consult prn Congestive heart failure 71724041 I50.22 carrying dxmaintain ed on spironolac tone 25 mg qdmonitor respirator y status and need to titrate Unsheltere d homelessness [id number] [address]202 Z59.02 manager social media to be involvedma y be barrier to dischargep atient with repeated AMA discharges added to PMH Tobacco user 461571282 Z 72.0 currently refusing nicotine patchis smoking at facilityco nsidering quitting, encouraged may start patch tomorrow [id number] Martinez Rendon MD [facility] on [address] [place] [address] 03/25/2023 15:30:14 03/30/2023 15:28:18 Primary insomnia 7821951 F51.01 see HPIwill starttraza done 25 mg qhs prnmonitor for effect and need to titrate Polysubstance abuse 4452 67918 F19.10 methadone 40 mg qdcurrentl y stable at baseline [id number] SCOTTIE Chen [facility] on [address] [place] [address] 03/30/2023 08:21:03 04/01/2023 10:41:27 Septic shock 27102666 R65.21 nafcillin 2 gm q 4 hrs til 04/19/23moni tor cbcf/u with ID s Polysubstance abuse 4452 56320 F19.10 methadone 40 mg qdf/u with methadone clinicSUDs counseling at facility Infective endocarditis of tricuspid valve 218542508 I33.0 hx of TV endocardit is s/p bioprosthe tic TVR complicate d by bioprosthe tic valve stenosispt notes sob intermitte ntly since TVR a couple of years agowaiting for CXR resultsfol lowed by CT surgery and cardiology at [facility] Pulmonary embolism 82779 003 I26.99 xarelto 20 mg qdmonitor resp status, bleeding risk Chronic hepatitis C 1283 81249 B18.2 untreated with resultant cirrhosis of liver with hx etohreferr ed to GI Cirrhosis of liver 007 K74.69 see above Anemia 841448134 D50.8 appears due to malnutriti on and iron deficiency monitor cbciron studies prndietary consult prn Congestive heart failure 35379880 I50.22 compensate dspironola ctone 25 mg qdmonitor respirator y status and need to titrate Unsheltere d homelessness [id number] [address]99 Z59.02 health and social care teacher involvedba rrier to dischargep atient with repeated AMA discharges Primary insomnia 7561339 F51.01 increase trazodone to 50 mg qhsmonitor for effect [id number] Martinez Rendon MD [facility] on [address] [place] [address] 03/31/2023 16:07:11 04/03/2023 16:00:10 Polysubstance abuse 652004784 F19.10 see HPImethado ne 40 mg qd currentlyp atient can f/u at methadone clinic for dose adjustment Septic shock 81153677 R6 5.21 nafcillin 2 gm q 4 to complete courserepe at cbc in am Pulmonary embolism 56715 003 I26.99 xarelto 20 mg qdmonitor respirator y statuswith atypical chest pain would consider CT imaging if symptoms changeto ED for acute decompensa tion [id number] Martinez Rendon MD [facility] on [address] [place] [address] 04/03/2023 15:42:16 04/06/2023 16:19:22 Atypical chest pain 380132526 R07.89 exam reassuring question underlying neuropathi c painwill start gabapentin 100 mg tid and followmoni tor need for chest CT depending on change in presentati on Septic shock 48282638 R6 5.21 see HPI with shock and endocardit isnafcilli n 2 gm q 4 for 26 days from admitmonit or cbcupdate ID with concernswb c count reassuring Polysubstance abuse 4452 [address]5839 F19.10 methadone 40 mg qdSUDS counselor at facility Pulmonary embolism 59171 003 I26.99 xarelto 20 mg qdmonitor respirator y statuscont inuedsee above [id number] SCOTTIE Chen [facility] on [address] [place] [address] 04/06/2023 14:52:36 04/13/2023 16:26:47 Septic shock 47888273 R65.21 nafcillin 2 gm q 4 hrs til 04/19/23moni tor cbcf/u with ID s Polysubstance abuse 4452 90564 F19.10 methadone 40 mg qdf/u with methadone clinicSUDs counseling at facility Infective endocarditis of tricuspid valve 245517192 I33.0 hx of TV endocardit is s/p bioprosthe tic TVR complicate d by bioprosthe tic valve stenosispt notes sob intermitte ntly since TVR a couple of years agonow somewhat worse with abd distension discussed with Dr Rendon, will get abd UL, nurse aware and will orderfollo wed by CT surgery and cardiology at [facility] Pulmonary embolism 27611 003 I26.99 xarelto 20 mg qdmonitor resp status, bleeding risk Chronic hepatitis C 1283 34008 B18.2 untreated with resultant cirrhosis of liver with hx etohreferr ed to GI Cirrhosis of liver K74.69 now with possible ascitesabd UL as aboveincre ase spironolac tone to 50 mg qd (was on 25 mg qd)monitor for worsening sxs Anemia 428202660 D50.8 appears due to malnutriti on and iron deficiency monitor cbciron studies prndietary consult prn Congestive heart failure 74303523 I50.22 increased sobspirono lactone 50 mg qd (as above)anoop tor respirator y status and need to titrate [id number] Martinez Rendon MD [facility] on [address] [place] [address] 04/07/2023 13:38:54 04/14/2023 09:58:52 Abdominal pain 30581275 R10.31 abd discomfort with distention ultrasound pendingCMP in ammonitor LFTs and need for GI referral Atypical chest pain 1025 63941 R07.89 see abovewill increase gabapentin to 200 mg tid and followmoni tor need for chest CT depending on change in presentati on Septic shock 76375032 R6 5.21 see HPI with shock and endocardit isnafcilli n 2 gm q 4 through 71monitor cbcupdate ID with concernswb c count reassuring [id number] SCOTTIE Chen [facility] on [address] [place] [address] 04/09/2023 08:34:52 04/22/2023 08:32:51 Infective endocarditis of tricuspid valve 836767031 I33.0 hx of TV endocardit is s/p bioprosthe tic TVR complicate d by bioprosthe tic valve stenosispt notes sob intermitte ntly since TVR a couple of years agowaiting for abd UL to be donefollow ed by CT surgery and cardiology at [facility] Cirrhosis of liver 47597 007 K74.69 now with possible ascitesabd UL as abovespiro nolactone 50 mg qdmonitor for worsening sxs Polysubstance abuse 4452 36475 F19.10 methadone 40 mg qddiscusse d with and will not add narcotic in pt with hx of polysubsta nce abuse - pain appears to be chronic in naturef/u with methadone clinicSUDs counseling at facility Septic shock 28082892 R6 5.21 nafcillin 2 gm q 4 hrs til 04/19/23moni tor cbcf/u with ID s Pulmonary embolism 63618 003 I26.99 xarelto 20 mg qdmonitor resp status, bleeding risk Chronic hepatitis C 1283 05485 B18.2 untreated with resultant cirrhosis of liver with hx etohreferr ed to GI Anemia 561236947 D50.8 appears due to malnutriti on and iron deficiency monitor cbciron studies prndietary consult prn Congestive heart failure 73067387 I50.22 stable todayspiro nolactone 50 mg qd (as above)anoop tor respirator y status and need to titrate Abdominal pain 29582340 R10.31 abd discomfort with distention ultrasound pendingCMP in ammonitor LFTs again on 04/13/23 and need for GI referral Atypical chest pain 1025 51912 R07.89 see abovegabap entin 200 mg tid and followmoni tor need for chest CT depending on change in presentati on [id number] Martinez Rendon MD [facility] on [address] [place] [address] 04/13/2023 15:29:49 04/22/2023 08:58:15 Polysubstance abuse 839700120 F19.10 maintained onmethadon e 40 mg qdwill write for oxycodone 5 mg q 8 prn breakthrou gh painthis will be discontinu ed at time of dischargep atient not to leave facility with oxycodone Infective endocarditis of tricuspid valve 266397178 I33.0 see HPIhx of TV endocardit is s/p bioprosthe tic TVR complicate d by bioprosthe tic valve stenosisco mplete Ab on 04/15 with ID signing off at this time Pulmonary embolism 95141 003 I26.99 xarelto 20 mg qdmonitor respirator y statushold day prior to paracentes is and day of procedure Chronic hepatitis C 1283 91043 B18.2 untreated with resultant cirrhosis of liver with hx etoh and now significan t asciteswil l refer to GI for further workup and evalwill refer to interventi onal radiology for paracentes iss Cirrhosis of liver 007 K74.69 see above [id number] Martinez Rendon MD [facility] on [address] [place] [address] 04/15/2023 13:43:11 04/22/2023 10:39:02 Infective endocarditis of tricuspid valve 506959194 I33.0 see HPIhx of TV endocardit is s/p bioprosthe tic TVR complicate d by bioprosthe tic valve stenosisan tibiotic completeID to set time to remove picc line Pulmonary embolism 00168 003 I26.99 xarelto 20 mg qdmonitor respirator y statushold day prior to paracentes is and day of procedure Polysubstance abuse 4452 71277 F19.10 maintained onmethadon e 40 mg qdoxycodon [...] for paracentes is Restlessne ss and agitation 646698697 R45.1 Patient verbally abusive and patronizin g [...] request psych eval if patient will accept [id number] SCOTTIE Chen [facility] on [address] [place] [address] 04/23/2023 12:25:55 04/29/2023 07:46:12 Infective endocarditis of tricuspid valve 597035659 I33.0 pt ok to discharge today to homeless shelterhx of TV endocardit is s/p bioprosthe tic TVR complicate d by bioprosthe tic valve stenosisco mpleted Ab on 04/15/23 with ID signing off at this timef/u with cards, pcp Pulmonary embolism 35664 003 I26.99 xarelto 20 mg qd - rx written for #30f/u with pcp Chronic hepatitis C 1283 47007 B18.2 untreated with resultant cirrhosis of liver with hx etoh and now significan t ascitesref erred to GI for further workup and evalpt refused paracentes is when he was sent out to [facility] ED Polysubstance abuse 4452 65585 F19.10 pt received his last dose methadone [...] Member ID Guarantor Name 04/07/2023 1 [place] [facility] Norberto Coriano [id number] Norberto Coriano 04/09/2023 1 [place] [facility] Norberto Coriano [id number] Norberto Coriano 04/13/2023 1 [place] Norberto Coriano [id number] Norberto Coriano 04/15/2023 1 [place] [facility] Norberto Coriano [id number] Norberto Coriano 04/23/2023 1 [place] Norberto Coriano [id number] Norberto Coriano Notes Date Note Type Note [...] requesting increase in gabapentin Martinez Rendon MD [address] [place] [address], [address], [place], [address], [facility] [employer] 04/07/2023 13:48:54 04/09/2023 text/html pt seen today [...] rib and back pain. SCOTTIE Chen [address] [facility], [address], [place], [address], [facility] 04/09/2023 14:32:40 04/13/2023 text/html Patient is a [...] with c/o pain Martinez Rendon MD [address] [facility], [address], [place], [address], [facility] [employer] 04/13/2023 15:45:02 04/15/2023 text/html Patient is a [...] for theraputic paracentesis. Martinez Rendon MD [address] [facility], [address], [place], [address], [facility] 04/15/2023 14:38:05 04/23/2023 text/html pt seen today fo r discharge summary. pt is discharging to a homeless nursing home. he has completed his antibiotics on 04/15/23 [...] nafcillin to complete course. SCOTTIE Chen [address] [facility], [address], [place], [address], [facility] 04/23/2023 13:14:23
--- OUTSIDE RECORDS SUMMARY | 2025-01-25 00:23 | XMS_ITS | Encounter Summary ---
Author Organization [employer] [facility] Address [address] [place] [address] 7t [place] [address] Care Team Providers Care Vegetable I Farmworker Name Role Phone Jin Mack MARIA DOLORES Primary Care Provider Unavail able Nirali LottP Primary Care Provider [phone] Alba So NP Primary Care Provider [phone] Encounter Details Date Type Department Care Team (Late Contact Info) Description 06/08/2023 Orders Only [facility] P[facility]S [address] [place] [address] Nirali Lott FNP [address] [place] [address] Chronic hepatitis C without hepatic coma (CMS/HCC) [...] Encounters Date Type Department Care Team (Late Contact Info) Description 01/27/2025 2:00 PM EDT Office Visit [facility] [address] [place] [address] Alba So NP [address] [place] [address] documented as of this encounter Visit Diagnoses Diagnosis Chronic hepatitis C without hepatic coma (CMS/HCC)- Primary documented in this encounter Additional Health Concerns Assessment Noted Time PHQ-9 Depression Total Score: 0 06/03/20 10:05 AM EDT documented as of this encounter Care Teams Vegetable I Farmworker Relationship Specialty Start Date End Date Jin Mack AGNP PCP - General Family Medicine 04/24/23 07/08/23 Nirali Lott FNP [address] [place] [address] PCP - General Family Medicine 07/09/23 04/13/24 Alba So NP [address] [place] [address] PCP - General Family Medicine 04/14/24 documented as of this encounter
--- OUTSIDE RECORDS SUMMARY | 2025-01-25 00:23 | XMS_ITS ---
Author Organization [employer] Address [address] [facility] 7t [place] [address] Care Team Providers Care Control Systems Eng Name Role Phone Alba So NP Primary Care Provider [phone] CM Complex Status:Outreach In Progress (Enrolling) Start date:01/11/2025 Enrollment reason:ADT Feed Overview ADT- Pt admitted to [facility] on 01/09/25. Case Team Name Relationship Phone Lucy Cervantes RN Registered Nurse(Responsible S taff) Continued Care and Services Coordination
--- OUTSIDE RECORDS SUMMARY | 2025-01-25 00:23 | XMS_ITS | Encounter Summary ---
Author Organization [employer] Address [address] [facility] 7t [place] [address] Care Team Providers Care Internal Review And Audit Compliance Name Role Phone Alba So NP Primary Care Provider [phone] Reason for Visit * Reason Comments Care Coordination CHW outreach for SDO H PT-1 and food needs-LVM Encounter Details Date Type Department Care Team (Latest Contact Info) Description 01/23/2025 Patient Outreach [facility] MEDICINE [address] [place] [address] Alba So NP [address] [place] [address] Care Coordination (CHW outreach for SDOH PT-1 and food needs-LVM ) Social History Tobacco Use Types Packs/Day [...] with others, in a hotel, in a longterm, living outside on the street, on a beach, in a car, or in a park 01/19/[address] you li ve. Do you have problems with any of the following? None of the above 01/19/2025 Food Insecurity Answer Date Recorded Within the past 12 months, y ou worried that your food would run out before you got money to buy more: Sometimes True 2024 Within the past 12 months,th e food you bought just didn't last and you didn't have enough money to get more: Sometimes True 01/19/2025 Transportation Answer Date Recorded In the past 12 months, has l ack of transportation kept you from medical appts, meetings, work or from getting things needed for daily living? Yes, it has kept me from medical appointments or getting medications. 01/19/2025 Utilities Answer Date Recorded In the past 12 months, has t he electric, gas, oil or water company threatened to shut off services in your home? No 01/19/2025 Depression Answer Date Recorded Patient Health Questionnaire-2 Score 4 10/18/2024 Internet Access Answer Date Recorded Internet Access Q1 Yes 01/19/2025 Internet Access Q2 Not on file 01/19/2025 Sex and Gender Information Value Date Recorded Sex Assigned at Male 08/18/2022 10:14 AM EDT Legal Sex Male 10:14 AM EDT Gender Identity Male 08/18/2022 10:14 AM EDT Sexual Orientation Straight 08/18/2022 10 :14 AM EDT documented as of this encounter Progress Notes * Subhash Doss - 01/23/2025 9:35 AM EDT CHW Subhash Doss, placed outbound call to patient for assistance with SDOH as a referral was placed by the provider. Patient had screened positive for the following SDOH insecurities. No answer atthis time. Patient's name and were not confirmed. CHW left detailed message and provided contact information requesting return call for assistance. Patient educated on extended clinic hours on Mondays through Wednesdays, and Walk-In Urgent Care Located in [facility]. Patient provided with after-hours line for [facility], , which offer night time triage service and option to transfer toon call provider if needed. documented in this encounter Plan of Treatment Upcoming Encounters Date Type Department Care Team (Late st Contact Info) Description 01/27/2025 2:00 PM EDT Office Visit [facility] [address] [place] [address] Alba So NP [address] [place] [address] documented as of this encounter Visit Diagnoses Not on filedocumented in this encounter Additional Health Concerns Assessment Noted Time PHQ-9 Depression Total Score: 18 024 11:56 AM EST documented as of this encounter Care Teams Internal Review And Audit Compliance Relationship Specialty Start Date End Date Alba So NP [address] [place] [address] PCP - General Family Medicine 04/14/24 documented as of this encounter
--- OUTSIDE RECORDS SUMMARY | 2025-01-25 00:23 | XMS_ITS | Clinical Summary ---
Author Organization [facility] Address [address] [place] [address] [address] [place] [address] Care Team Providers Care Clinical Informatics Manager Name Role Phone Alba So GENVEA Primary Care Provider Allergies No known active allergies Medications * [...] mouth in the morning. 08/13/20 23 Active HealthyLax 17 g packet MIX 1 PACKET MIXED WITH 8 OUNCES OF FLUID AND DRINK ORALLY ONCE A DAY 04/19/20 24 Active ferrous sulfate 325 (65 Fe) MG EC tablet Take 325 mg by mouth with breakfast. 09/29/20 24 Active thiamine (Vitamin B-1) 100 MG tablet Take 1 tablet by mouth Once per day. 09/29/20 24 Active spironolactone (Aldactone) 25 MG tabletIndicatio ns:History of artificial heart valve Take 2 tablets (50 mg) by mouth Once per day. as directed 30 tablet 11/21/19 25 Active midodrine (Proamatine) 2.5 MG tabletIndicatio ns:History of artificial heart valve Take 1 tablet (2.5 mg) by mouth 3 times daily. 90 tablet 11/21/19 25 Active Blood Pressure kit 1 each 2 times daily. 1 kit 12/22/19 25 026 Active ProAir RespiClick 108 (90 Base) MCG/ACT aerosol powder Inhale 2 puffs Every 4-6 hours as needed (SOB or wheeze). 12/26/19 25 Active Eliquis 5 MG tablet Take 1 tablet by mouth 2 times daily. 01/14/20 25 Active naloxone (Narcan) 4 mg/0.1 mL nasal spray PLEASE SEE ATTACHED FOR DETAILED DIRECTIONS 01/02/20 Active magnesium oxide (Mag-Ox) 400 MG tablet Take 1 tablet by mouth 2 times daily. 01/14/20 25 Active magnesium oxide (Mag-Ox) 400 (240 Mg) MG tablet Take 1 tablet by mouth 2 times daily. 04/01/20 24 025 Discontinued(M ed list cleanup (will not trigger notification to Pharmacy)) Xarelto 20 MG tabletIndicatio ns:History of artificial heart valve Take 1 tablet (20 mg) by mouth with evening meal. 30 tablet 2 11/21/19 25 025 Discontinued(M ed list cleanup (will not trigger notification to Pharmacy)) Ventolin HFA 108 (90 Base) MCG/ACT inhalerIndicati ons:Mild intermittent asthma, unspecified whether complicated INHALE 2 PUFFS USING INHALER EVERY FOUR TO SIX HOURS WHILE AWAKE NEEDED 18 g 5 11/21/19 25 025 Discontinued(M ed list cleanup (will not trigger notification to Pharmacy)) Active [...] treatment, ambulance called and expect called to [facility]. 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 Assessment & Plan (11/21/2024 7:05 PM EST): Pt with complicated hx and difficulty with out patient compliance Meds reconciled with [facility] discharge documents and refilled Pt prefers to seek care at [facility] today for ongoing cardiac issues Endocarditis 10/17/2024 [...] he gets home to be transported to [facility] for stitching as he did not want to be transported directly from the clinic Hx of pulmonary embolus 04/18/2023 Overview (04/18/2023): Treating w/ Xarelto 20 mg daily while at [facility] 03/16/23-04/15/23 (anticipated discharge date) Anemia, chronic disease 10/09/2022 Symptomatic anemia 10/09/2022 Overview (10/09/2022): Acute anemia related to tooth extractions on 10/01/22 while still on xarelto for anticoagulation. Taken to [place] ED, bleeding gums, not able to stop with pressure Hemoglobin 3 Received 1 prbc transfusion Transferred to [facility] for admission on 10/02/22. Received another transfusion Discharged 10/06/22 Ascites 07/21/2022 Bacteremia 07/21/2022 Overview (04/18/2023): Recurrent bacteremia and endocarditis found 03/04/23. Admitted. Left AMA on 03/14/23 Returned 03/15/23. Admitted again with plan to transfer to [facility], [facility], to continue antibiotics until 04/15 to finish [...] Heroin dependence 06/27/2022 Overview (08/23/2024): Admitted to [facility] for rehab Treated w/ Methadone 40 mg at [facility] 03/16/23-04/15/23 -[facility] 08/23/24 Assessment & Plan (08/23/2024 2:45 PM EST): Admitted to [facility] for rehab Treated w/ Methadone 40 mg at [facility] 03/16/23-04/15/23 -[facility] to [facility] [...] 2020 Overview (10/09/2022): 07/16/22 - Presented to [facility] ED with hypotension, found to be in septic shock 07/20/22 - Left hospital AMA before completing IV antibiotics. Blood cultures positive for GBS and required pressor support when he arrived. 07/21/22 - Mother took Pt to [facility] ED since he left [facility] AM. 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 I will place a referral to our [facility] hep c team. Encounters * This document contains information received from the source organization and may not represent a complete record from that organization. Date Type Department Care Team Description 01/24/2025 Telephone [facility] [address] [place] [address] Anastacio Braxton MA chartprep 01/24/2025 Patient Outreach [address] [address] Alba So NP 01/23/2025 Patient Outreach [address] [address] Alba So NP Care Coordination (CHW outreach for SDOH PT-1 and food needs-LVM ) 01/19/2025 Patient Outreach [address] [address] Alba So NP Transition Of Care (Tcm) (HDF scheduled and SDOH screening positive and Tobacco screening positive) 01/17/2025 Patient Outreach [address] [address] Alba So NP Care Coordination (Outreach) 01/16/2025 Patient Outreach [address] [address] Alba So NP Transition Of Care (Tcm) (HDF unscheduled) 01/11/2025 Patient Outreach [address] [address] Alba So NP Care Coordination (Outreach) 01/11/2025 Patient Outreach [address] [address] Alba So NP Care Coordination (C3/CM Chart Review) 01/11/2025 Patient Outreach [facility] [address] [place] [address] Alba So NP Care Coordination (C3CM Chart review) 01/11/2025 Patient Outreach [address] [address] Alba So NP 12/30/2024 Population Health Risk Score [facility] Department [address] [place] [phone] Provider, Population Health Generic 12/25/2024 Orders Only GENERIC EXTERNAL DATA DEPARTMENT Provider, Generic External Data 12/22/[address] [address] Alba So NP 12/21/2024 Orders Only [facility] [address] [place] [address] Alba So NP 12/20/[address] [address] Beth Fong, NABEEL 12/20/2024 Patient Outreach [address] [address] Alba So NP Transition Of Care (Tcm) 12/19/2024 Refill [facility] [address] [address] Astrid Becker NP History of artificial heart valve 12/08/2024 Orders Only GENERIC EXTERNAL DATA DEPARTMENT Provider, Generic External Data 11/22/2024 Patient Outreach [address] [address] Alba So NP Transition Of Care (Tcm) 11/21/2024 4:00 PM EST Office Visit [facility] [address] [address] Astrid Becker NP History of artificial heart valve (Primary Dx); Mild intermittent asthma, unspecified whether complicated; Endocarditis of tricuspid valve; Cellulitis of left lower extremity; Drug abuse, IV ([facility]) 11/21/2024 Patient Outreach [address] [address] Alba So NP Transition Of Care (Tcm) 11/18/2024 Patient Outreach [address] [address] Alba So NP Transition Of Care (Tcm) (HDF- Unscheduled (denied)) 11/11/2024 Patient Outreach [address] [address] Alba So NP Transition Of Care (Tcm) [...] with others, in a hotel, in a senior care, living outside on the street, on a [...] 10/18/2024 11:55 AM EST Plan of Treatment Upcoming Encounters Date Type Department Care Team (Late st Contact Info) Description 01/27/2025 2:00 PM EDT Office Visit [facility] [address] [place], [place] [phone] Alba So NP [address] [place] [address] Health Maintenance Due Date Last Done Comments Lipid Panel 1988 Family Planning (PISQ) 2003 Hepatitis B Vaccines (1 of 3 - 19+ 3-dose series) 2007 Hepatitis A Vaccines (2 of 2 - Risk 2-dose series) 06/02/2018 12/03/2017 Pneumococcal Vaccine: Pediatrics (0 to 5 Years) and At-Risk Patients (6 to 49) Years) (2 of 2 - PCV) 06/12/2018 06/12/2017, 04/06/2017 COVID-19 Vaccine (1 - 2023-2 5 season) 2024 Influenza Vaccine (#1) 2024 , 07/27/2020 Depression Monitoring (PHQ-9) 04/17/2025, 10/18/2024 Alcohol/Substance Use Screening 10/18/2025 10/18/2024 Depression Screening 10/18/2025 10/18/2024, 10/18/2024 Tobacco Screening 10/18/2025 10/18/2024 SDOH Screening 01/19/2026 01/19/2025 DTaP/Tdap/Td Vaccines (2 - T d or [...] Procedure Name Priority Date/Time Associated Diagnosis Comments CTA CHEST PE PROTOCAL Routine 12/25/2024 3:57 PM EDT HIGH SENSITIVITY TROPONIN I Routine 12/25/2024 2:10 PM EDT VENOUS BLOOD GAS Routine 12/25/2024 9:50 AM EDT ETHANOL Routine 12/25/2024 9:41 AM EDT MAGNESIUM Routine 12/25/2024 9:41 AM EDT COMPREHENSIVE METABOLIC PANEL Routine 12/25/2024 9:41 AM EDT LACTIC ACID Routine 12/25/2024 9:41 AM EDT D DIMER HIGH SENSITIVITY Routine 12/25/2024 9:40 AM EDT PROTHROMBIN TIME-INR Routine 12/25/2024 9:40 AM EDT CBC WITH AUTO DIFFERENTIAL Routine 12/25/2024 9:40 AM EDT HIGH SENSITIVITY TROPONIN I Routine 12/25/2024 9:40 AM EDT BLOOD CULTURE (SECOND) Routine 9:40 AM EDT BLOOD CULTURE (FIRST) Routine 12/25/2024 9:40 AM EDT SARS COV2/INFLUENZA A/B AND RSV RNA QL NAAT Routine 12/25/2024 9:40 AM EDT DRUG MONITOR, PANEL 1, SCREEN, URINE Routine 12/25/2024 12:00 AM EST HIGH SENSITIVITY TROPONIN I Routine 12/08/2024 11:24 [...] METABOLIC PANEL Routine 11/03/2024 6:29 AM EST HIV 1/2 ANTIGEN/ANTIBODY, FOURTH GENERATION W/RFL Routine 04/08/2024 11:52 AM EDT Hepatitis C virus infection without hepatic coma, unspecified chronicity from Last 3 Months or Most Recently Relevant to Health Maintenance Results * CTA Chest PE Protocal (12/25/2024 3:57 PM EDT) Anatomical Region Laterality Modality Body, Chest Computed Tomogra phy 12/25/2024 3:57 PM EDT Narrative 12/25/2024 3:59 PM EDT ? [facility] ?[address] ?[place] [address] ? CT Scan Report ? Signed ? Patient: Norberto Marquez ?MR#: [id number] ? : 1990 ?Acct:[id number] ? Age/Sex: 34 / M ?ADM Date: 12/25/24 ? Loc: HO.ED ? Attending Dr: ? Ordering Physician: Fartun Farris ?? Date of Service: 12/25/24 ?? Procedure(s): CT angio chest PE protocol ?? Accession Number(s): [id number] ? cc: Alba So; Fartun Farris ? Report Number: ?? [id number]: Total DLP = ??181.00 mGy-cm ? CLINICAL HISTORY: sob, cp ? CT angiography chest with contrast. 3D Postprocessing. ? Comparison: CT/[place] - CT ANGIO CHEST PE PROTOCOL - 10/10/24 07:48 EST ? Findings: ?? The heart is mildly enlarged. ?? The thoracic aorta is normal caliber. ?? No pulmonary artery filling defects. ?? The visualized thyroid and mediastinum are unremarkable. ? There are linear foci of atelectasis within the lower lungs. There is ?? peribronchial thickening within the right lower lobe. No consolidation, ?? pleural effusion or pneumothorax. Two adjacent right upper lobe nodules ?? each measuring 5 mm in size on images 19 and 20. ? There is a small amount of free fluid within the bilateral upper ?? quadrants. ?? No acute fractures. ? IMPRESSION: ?? 1. No evidence of pulmonary artery embolism. ?? 2. There is a small amount of free fluid within the upper abdomen. ?? 3. There is peribronchial thickening within the right lower lobe. ? This document has been electronically signed by: Shirley Pacheco MD on ?? 12/25/2024 15:57:51 ? Dictated By: ?Shirley Pacheco MD ? Signed By: ?<Electronically signed by Shirley Pacheco MD in OV> ? 12/25/24 1559 ? DD/ 1557 ? TD/TT: 12/25/24 1557 ? Nuclear Reactor Operator: ? Procedure Note [place], Image - 12/25/[address] [place] [address] [address] Scan Report Signed Patient: Zully Marquez#: [id number] : 1990Acct:[id number] Age/Sex: 34 / MADM Date: 12/25/24 Loc: .ED Attending Dr: Ordering Physician: Fartun Farris Date of Service: 12/25/24 Procedure(s): CT angio chest PE protocol Accession Number(s): [id number] cc: Alba So; Fartun Farris Report Number: [id number]: Total DLP = 181.00 mGy-cm CLINICAL HISTORY: sob, cp CT angiography chest with contrast. 3D Postprocessing. Comparison: CT/[place] - CT ANGIO CHEST PE PROTOCOL - 10/10/24 07:48 EST Findings: The heart is mildly enlarged. The thoracic aorta is normal caliber. No pulmonary artery filling defects. The visualized thyroid and mediastinum are unremarkable. There are linear foci of atelectasis within the lower lungs. There is peribronchial thickening within the right lower lobe. No consolidation, pleural effusion or pneumothorax. Two adjacent right upper lobe nodules each measuring 5 mm in size on images 19 and 20. There is a small amount of free fluid within the bilateral upper quadrants. No acute fractures. IMPRESSION: 1. No evidence of pulmonary artery embolism. 2. There is a small amount of free fluid within the upper abdomen. 3. There is peribronchial thickening within the right lower lobe. This document has been electronically signed by: Shirley Pacheco MD on 12/25/2024 15:57:51 Dictated By: Shirley Pacheco MD Signed By: <Electronically signed by Shirley Pacheco MD in OV> 12/25/24 1559 DD/ 56 TD/TT: 12/25/241556 Nuclear Reactor Operator: [facility] External Provider IMG CT PROCEDURES Edited Result - Final * High Sensitivity Troponin I (12/25/2024 2:10 PM EDT) Only the most recent of3 resultswithin the time period is included. Pathologist [facility] TROPONIN I HIGH SENSITIVITY 5.7 <3.5 - 35.0 ng/L [facility] Comment:The Coley high sens itivity Troponin-I results should beused in conjunction with other diagnostic information suchas ECG, clinical observations and information, and patientsymptoms to aid in the diagnosis of [place]. 12/25/2024 2:10 PM EDT 12/25/2024 2:12 PM EDT Generic External Data Provider LAB BLOOD ORDERAB LES Final Result [facility] [address] [place] [address] [phone] * (ABNORMAL) VENOUS BLOOD GAS (12/25/2024 9:50 AM EDT) Pathologist [facility] VBG pH 7.40 7.32 - 7.43 [facility] Comment:METER #: [id number] additional_comment: [facility] VBG PCO2 29 mmHg [facility] Comment:METER #: [id number] additional_comment: [facility] VBG PO2 64 mmHg [facility] Comment:METER #: [id number] additional_comment: [facility] VBG Base Excess -5.1 mmol/L [facility] Comment:METER #: [id number] additional_comment: [facility] VBG HCO3 18(L) 22 - 26 mmol/L [facility] Comment:METER #: [id number] additional_comment: [facility] O2 Sat, Bry 91.0 % [facility] Comment:METER #: [id number] additional_comment: [facility] 12/25/2024 9:50 AM EDT 12/25/2024 9:53 AM EDT us Generic External Data Provider LAB BLOOD ORDERAB LES Final Result Performing Organization Address [facility] Co de Phone Number [facility] [address] [place] [phone] * Ethanol (12/25/2024 9:41 AM EDT) ETHANOL (MG/DL) IN SER/PLAS <10 mg/dL [facility] Comment:Serum/plasma ethanol results are to be used formedical/treatment purposes only. 12/25/2024 9:41 AM EDT 12/25/2024 10:02 AM EDT us Generic External Data Provider LAB BLOOD ORDERAB LES Final Result Performing Organization Address [facility] Co de Phone Number [facility] [address] [place] [address] [phone] * Magnesium (12/25/2024 9:41 AM EDT) Magnesium 1.8 1.6 - 2.6 mg/dL [facility] 12/25/2024 9:41 AM EDT 12/25/2024 10:02 AM EDT us Generic External Data Provider LAB BLOOD ORDERAB LES Final Result Performing Organization Address [facility] Co de Phone Number [facility] [address] [place] [address] [phone] * Lactic Acid (12/25/2024 9:41 AM EDT) Only the most recent of2 resultswithin the time period is included. Lactic Acid 1.4 0.5 - 2.0 mmol/L [facility] 12/25/2024 9:41 AM EDT 12/25/2024 9:47 AM EDT us Generic External Data Provider LAB BLOOD ORDERAB LES Final Result [facility] [address] [place] [address] [phone] * (ABNORMAL) Comprehensive Metabolic Panel (12/25/2024 9:41 AM EDT) Only the most recent of2 resultswithin the time period is included. Sodium 140 135 - 145 mmol/L [facility] Potassium 3.8 3.3 - 5.1 mmol/L [facility] Chloride 114(H) 96 - 108 mmol/L [facility] Carbon Dioxide 17(L) 22 - 29 mmol/L [facility] Anion Gap 13 12 - 20 [facility] Urea Nitrogen (BUN) 21(H) 9 - 16 mg/dL [facility] Creatinine, Serum 0.76 0.5 - 1.4 mg/dL [facility] Creatinine Clr Calc Pharmacy 112.0 [facility] Comment:eGFR (calculated fro m the MDRD study equation) and eCrCl(calculated from the Cockcroft-Gault equation) are based ondifferent parameters and may not yield comparable results.If eCrCl result is absurd, please check patient'sheight/weight. Estimated Glomerular Filt Rate >60 [facility] Comment:Chronic Kidney Disea se: Estimated GFR < 60 mL/min/1.53c8Tompfa Kidney Disease: Estimated GFR < 15 mL/min/1.73m2 Glucose 75 60 - 115 mg/dL [facility] Calcium 8.9 8.4 - 10.2 mg/dL [facility] Bilirubin, Total 1.2(H) 0.0 - 1.0 mg/dL [facility] Aspartate Amino Transferase 107(H) 5 - 37 U/L [facility] Alanine Aminotransferase 51(H) 0 - 40 U/L [facility] Total Protein 7.9 6.5 - 8.0 g/dL [facility] Albumin Level 3.6 3.5 - 5.0 g/dL [facility] Alkaline Phosphatase 247(H) 39 - 117 U/L [facility] 12/25/2024 9:41 AM EDT 12/25/2024 10:02 AM EDT Generic External Data Provider LAB BLOOD ORDERAB LES Final Result Performing Organization Address [facility] de Phone Number [facility] [address] [place] [phone] * D Dimer High Sensitivity (12/25/2024 9:40 AM EDT) D Dimer High Sensitivity 413 NG/ML [facility] Comment:D-DIMER HS REFERENCE RANGENote: Our assay reports D-Dimer Units (D- DU).The cut-off value for venous thromboembolic (VTE) disease is230 ng/mL. This value has a very high negative predictivevalue when the patient has a low to moderate clinicalprobability of VTE.The upper limit of normal is 243 ng/mL. 12/25/2024 9:40 AM EDT 12/25/2024 9:47 AM EDT us Generic External Data Provider LAB BLOOD ORDERAB LES Final Result Performing Organization Address [facility] Co de Phone Number [facility] [address] [place] [phone] * Blood Culture (First) (12/25/2024 9:40 AM EDT) Blood Venous blood specimen / Unknown 12/25/2024 9:40 AM EDT 12/25/2024 9:47 AM EDT Comment:Blood Narrative [facility] - 12/30/2024 11:47 AM EDT Blood Culture (First) No growth after 5 days. Specimen Source: Blood Generic External Data Provider LAB MICROBIOLOGY - GENERAL ORDERABLES Final Result Performing Organization Address [facility]/ZIP Co de Phone Number [facility] [address] [place] [phone] * Blood Culture (Second) (12/25/2024 9:40 AM EDT) Blood Venous blood specimen / Unknown 12/25/2024 9:40 AM EDT 12/25/2024 9:47 AM EDT Comment:Blood [facility] - 12/30/2024 11:47 AM EDT Blood Culture (Second) No growth after 5 days. Specimen Source: Blood Generic External Data Provider LAB MICROBIOLOGY - GENERAL ORDERABLES Final Result Performing Organization Address [facility] de Phone Number [facility] [address] [place] [phone] * (ABNORMAL) SARS-CoV-2 RNA, Influenza A/B, and RSV RNA, Ql NAAT (12/25/2024 9:40 AM EDT) Only the most recent of2 resultswithin the time period is included. Influenza A PCR NEGATIVE Negative [facility] Influenza B PCR NEGATIVE Negative [facility] Resp Syncy Virus RNA Qual PCR POSITIVE(A) Negative [facility] SARS COV2 PCR NEGATIVE Negative [facility] Comment:All test results mus t be [...] use by authorized laboratories.Testing performed on the [employer] GeneXpert utilizingreal-time RT-PCR.All SARS CoV2 and positive influenza A/B results arereported to [facility]. 12/25/2024 9:40 AM EDT 12/25/2024 9:47 AM EDT Generic External Data Provider LAB MICROBIOLOGY - GENERAL ORDERABLES Final Result [facility] [address] [place] [phone] * (ABNORMAL) CBC auto differential (12/25/2024 9:40 AM EDT) Only the most recent of2 resultswithin the time period is included. White Blood Count 10.2 4.8 - 10.8 X10*3/uL [facility] Red Blood Count 4.28(L) 4.60 - 5.80 X10*6/uL [facility] Hemoglobin 8.8(L) 14.0 - 18.0 g/dl [facility] Hematocrit 29.5(L) 42.0 - 52.0 % [facility] Mean Corpuscular Volume 68.9(L) 80.0 - 98.0 fL [facility] Mean Corpuscular Hemoglobin 20.6(L) 27.0 - 33.0 pg [facility] Mean Corpuscular HGB Conc 29.8(L) 31.0 - 36.0 g/dl [facility] Red Cell Distribution Width 22.5(H) 11.0 - 16.0 % [facility] Platelet Count 380 160 - 400 X10*3/uL [facility] Mean Platelet Volume 9.4 9.4 - 12.4 fL [facility] Neutrophils Percent Auto 77.4(H) 45 - 73 % [facility] Imm Gran Pct Auto 0.5(H) 0.0 - 0.4 % [facility] Lymphocytes Percent Auto 11.5(L) 20 - 40 % [facility] Monocytes Percent Auto 9.3 2 - 11 % [facility] Eosinophils Percent Auto 0.6 0 - 4 % [facility] Basophils Percent Auto 0.7 0 - 2 % [facility] NRBC Pct Auto 0.3(H) 0.0 - 0.2 /100WBC [facility] Neutrophils Absolute Auto 7.9 2.0 - 8.3 x10*3/uL [facility] Imm Gran Abs Auto 0.05(H) 0.00 - 0.03 X10*3/uL [facility] Lymphocytes Absolute Auto 1.2 1.2 - 4.9 X10*3/uL [facility] Monocytes Absolute Auto 0.9 0.1 - 1.2 X10*3/uL [facility] Eosinophils Absolute Auto 0.1 0.0 - 0.4 X10*3/uL [facility] Basophils Absolute Auto 0.1 0.0 - 0.2 X10*3/uL [facility] NRBC Abs Auto 0.030(H) 0.0 - 0.012 X10*3/uL [facility] 12/25/2024 9:40 AM EDT 12/25/2024 9:47 AM EDT us Generic External Data Provider LAB BLOOD ORDERAB LES Final Result [facility] [address] [place] [phone] * (ABNORMAL) Prothrombin Time-INR (12/25/2024 9:40 AM EDT) Only the most recent of2 resultswithin the time period is included. Prothrombin Time 21.7(H) 10.9 - 12.4 SEC [facility] INTERNATIONAL NORM RATIO 1.9(H) 0.9 - 1.1 [facility] Comment:INTERNATIONAL NORMAL IZED RATIO (INR) REFERENCE RANGES Reference RangeFor patients not on anticoagulant therapy: 0.9 - 1.1INR ranges for oral anticoagulanttherapy:For prevention and treatment of venous thrombosis and pulmonary embolism: 2.0 - 3.0For acute myocardial infarction with aspirin therapy: 2.0 - 3.0For acute myocardial infarction without aspirin therapy: 3.0 - 4.0For patients with mechanical prosthetic heart valves: 2.5 - 3.5 12/25/2024 9:40 AM EDT 12/25/2024 9:47 AM EDT us Generic External Data Provider LAB BLOOD ORDERAB LES Final Result [facility] [address] [place] [address] [phone] * (ABNORMAL) Drug Monitoring, Panel 1, Screen, Urine (12/25/2024 12:00 AM EST) Only the most recent of2 resultswithin the time period is included. Opiate Screen Urine Not Detected Not Detect [facility] Comment:Opiate cut-off is 30 0 ng/mL.Positive results are unconfirmed and should not be used fornon-medical purposes. Barbiturates, Urine Not Detected Not Detect [facility] Comment:Barbiturate cut-off is 200 ng/mL.Positive results are unconfirmed and should not be used fornon-medical purposes. Phencyclidine Screen Urine Not Detected Not Detect [facility] Comment:Phencyclidine cut-of f is 25 ng/mL.Positive results are unconfirmed and should not be used fornon-medical purposes. Amphetamine Screen Urine Not Detected Not Detect [facility] Comment:Amphetamine cut-off is 1000 ng/mL.Positive results are unconfirmed and should not be used fornon-medical purposes. Benzodiazepines Screen Urine Not Detected Not Detect [facility] Comment:Benzodiazepine cut-o ff is 200 ng/mL.Positive results are unconfirmed and should not be used fornon-medical purposes. Cocaine Screen Urine POSITIVE(A) Not Detect [facility] Comment:Cocaine cut-off is 3 00 ng/mL.Positive results are unconfirmed and should not be used fornon-medical purposes. Cannabinoid Screen Urine POSITIVE(A) Not Detect [facility] Comment:Cannabinoid cut-off is 50 ng/mL.Positive results are unconfirmed and should not be used fornon-medical purposes. Methadone Screen, Urine Positive(A) Not Detect ng/mL [facility] Comment:Methadone cut-off is 300 ng/mL.Positive results are unconfirmed and should not be used fornon-medical purposes. FENTANYL URINE POSITIVE(A) Not Detect [facility] Comment:Fentanyl cut-off is 1 ng/mL.Positive results are unconfirmed and should not be used fornon-medical purposes. Oxycodone Urine Screen Not Detected Not Detect ng/mL [facility] Comment:Oxycodone cut-off is 100 ng/mL.Positive results are unconfirmed and should not be used fornon-medical purposes. Buprenorphine Screen Not Detected Not Detect ng/mL [facility] Comment:Buprenorphine cut-of f is 5 ng/mL.Positive results are unconfirmed and should not be used fornon-medical purposes. 12/25/2024 12/25/2024 us Generic External Data Provider LAB URINE ORDERAB LES Final Result [facility] [address] [place] [address] [phone] * US Scrotum (11/03/2024 3:30 PM EST) Anatomical Region Laterality Modality Body Ultrasound 11/03/2024 3:30 PM EST Narrative 11/03/2024 3:54 PM EST ? [facility] ?[address] ?[place] [address] ? Ultrasound Report ? Signed ? Patient: Alistairiano,Norberto ?MR#: [id number] ? : 1990 ?Acct:[id number] ? Age/Sex: 34 / M ?ADM Date: 01/16/25 ? Loc: HO.[place] ?MEDSURG-2 ? Attending Dr: Janeen Long MD ? Ordering Physician: Jenelle Meza ?? Date of Service: 11/03/24 ?? Procedure(s): US scrotum ?? Accession Number(s): [id number] ? cc: Jenelle Meza; [facility] ? EXAMINATION: US SCROTUM ? HISTORY: Scrotal [...] DD/ 1530 ? TD/TT: 11/03/24 1547 ? Nuclear Reactor Operator: ? Procedure Note Pieter, Jonathan - 11/03/[address] [address] Ultrasound Report Signed Patient: Zully Marquez#: [id number] : 1990Acct:[id number] Age/Sex: 34 / MADM Date: 11/03/24 [facility]: Janeen Long MD Ordering Physician: Jenelle Meza Date of Service: 11/03/24 Procedure(s): US scrotum Accession Number(s): [id number] cc: Jenelle Meza; [facility] EXAMINATION: US SCROTUM HISTORY: Scrotal swelling. COMPARISONS: [...] Earl Miller MD 11/03/2024 03:51 PM EST Dictated By: Earl Miller MD Signed By: <Electronically signed by Earl Miller MD in OV> 11/03/24 1551 DD/ 1530 TD/TT: 11/03/24 1547 Nuclear Reactor Operator: us [facility] External Provider IMG US PROCEDURES Final Result * XR Tibia Fibula 2 Views Left (11/03/2024 10:18 AM EST) Anatomical Region Laterality Modality Lower Extremities, Lower Leg Left Rad iographic Imaging 11/03/2024 10:1 8 AM EST Narrative 11/03/2024 11:08 AM EST ? [facility] ?[address] ?[place], [place] [address] ?XRay Report ? Signed ? Patient: Norberto Marquez ?MR#: [id number] ? : 1990 ?Acct:[id number] ? Age/Sex: 34 / M ?ADM Date: 11/03/24 ? Loc: HO.ED ? Attending Dr: ? Ordering Physician: Tasneem Rojas NP ?? Date of Service: 11/03/24 ?? Procedure(s): XR tibia fibula LT 2V ?? Accession Number(s): [id number] ? cc: [facility]; Tasneem Rojas NP ? EXAMINATION: ?? XR [...] ? Signed By: ?<Electronically signed by Cory Krishnan MD in OV> ?11/03/24 1105 ? DD/ 1018 ? TD/TT: 11/03/24 1056 ? Nuclear Reactor Operator: ? Procedure Note Donotuseinterpreter, Image - 11/03/[address] [address] XRay Report Signed Patient: Zully Marquez#: [id number] : 1990Acct:[id number] Age/Sex: 34 / MADM Date: 11/03/24 Loc: HO.ED Attending Dr: Ordering Physician: Tasneem Rojas NP Date of Service: 11/03/24 Procedure(s): XR tibia fibula LT 2V Accession Number(s): [id number] cc: [facility]; Tasneem Rojas NP EXAMINATION: XR TIBIA AND [...] 11/03/24 1105 DD/ 1018 TD/TT: 11/03/24 1056 Nuclear Reactor Operator: [facility] External Provider IMG XR PROCEDURES Edited Result - Final * Urinalysis w/reflex microscopic (11/03/2024 10:09 AM EST) Color Urine Yellow [facility] Appearance Urine Clear [facility] PH 6.5 5.0 - 9.0 [facility] Glucose Urine UA Negative Negative mg/dL [facility] Urine Blood Negative Negative [facility] Specific [place] - Urine 1.015 1.005 - 1.025 [facility] Urine Protein Negative Neg-Trace mg/dL [facility] Urine Ketones Negative Negative mg/dL [facility] Nitrite Urine Negative Negative [facility] Leukocyte Esterase Urine Negative Negative [facility] 11/03/2024 10:0 9 AM EST 11/03/2024 10:14 AM EST Narrative [facility] - 11/03/2024 10:22 AM EST [id number], Clean [employer] us Generic External Data Provider LAB URINE ORDERAB LES Final Result [facility] [address] [place] [address] [phone] * US VENOUS DUPLEX LE LT (11/03/2024 10:00 AM EST) Anatomical Region Laterality Modality Abdomen Ultrasound 11/03/2024 10:0 0 AM EST Narrative 11/03/2024 10:40 AM EST ? [facility] ?[address] ?[place] [address] ? Ultrasound Report ? Signed ? Patient: Norberto Marquez ?MR#: [id number] ? : 1990 ?Acct:[id number] ? Age/Sex: 34 / M ?ADM Date: 11/03/24 ? Loc: HO.ED ? Attending Dr: ? Ordering Physician: Tasneem Rojas CAR BODY DESIGNER ?? Date of Service: 11/03/24 ?? Procedure(s): US venous duplex LE LT ?? Accession Number(s): [id number] ? cc: [facility]; Tasneem Rojas CAR BODY DESIGNER ? EXAMINATION: ?? US DOPPLER VENOUS LOWER [...] Hernandez MD ??11/03/2024 10:37 AM ?? EST ? Dictated By: ?Rito Philip MD ? Signed By: ?<Electronically signed by Rito Gamino MD in OV> ? 11/03/24 1037 ? DD/ 1000 ? TD/TT: 11/03/24 1011 ? Nuclear Reactor Operator: ? Procedure Note Jonathan Stapleton - 11/03/2024 [place] [address] Ultrasound Report Signed Patient: Zully Marquez#: [id number] : 1990Acct:[id number] Age/Sex: 34 / MADM Date: 11/03/24 Loc: HO.ED Attending Dr: Ordering Physician: Tasneem Rojas NP Date of Service: 11/03/24 Procedure(s): US venous duplex LE Accession Number(s): [id number] cc: [facility]; Tasneem Rojas NP EXAMINATION: US DOPPLER VENOUS [...] 11/03/24 1037 DD/ 1000 TD/TT: 11/03/24 1011 Nuclear Reactor Operator: [facility] External Provider IMG US PROCEDURES Edited Result - Final * Sed Rate by Modified Black (11/03/2024 6:29 AM EST) Erythrocyte Sedimentation Rate 8 0 - 15 MM/HR [facility] Comment:Patients with polycy themia and many hemoglobin abnormalitiesmay have depressed sed rates whereas patients with anemiamay have elevated sed rates. 11/03/2024 6:29 AM EST 11/03/2024 9:19 AM EST Generic External Data Provider LAB BLOOD ORDERAB LES Final Result [facility] [address] [place] [phone] * (ABNORMAL) CBC (11/03/2024 6:29 AM EST) White Blood Count 9.5 4.8 - 10.8 X10*3/uL [facility] Red Blood Count 3.65(L) 4.60 - 5.80 X10*6/uL [facility] Hemoglobin 8.4(L) 14.0 - 18.0 g/dl [facility] Hematocrit 28.1(L) 42.0 - 52.0 % [facility] Mean Corpuscular Volume 77.0(L) 80.0 - 98.0 fL [facility] Mean Corpuscular Hemoglobin 23.0(L) 27.0 - 33.0 pg [facility] Mean Corpuscular HGB Conc 29.9(L) 31.0 - 36.0 g/dl [facility] Red Cell Distribution Width 25.4(H) 11.0 - 16.0 % [facility] Platelet Count 328 160 - 400 X10*3/uL [facility] Mean Platelet Volume 9.4 9.4 - 12.4 fL [facility] NRBC Pct Auto 0.0 0.0 - 0.2 /100WBC [facility] NRBC Abs Auto 0.000 0.0 - 0.012 X10*3/uL [facility] 11/03/2024 6:29 AM EST 11/03/2024 6:44 AM EST us Generic External Data Provider LAB BLOOD ORDERAB LES Final Result Performing Organization Address [facility] de Phone Number [facility] [address] [place] [phone] * (ABNORMAL) C-reactive Protein (11/03/2024 6:29 AM EST) C Reactive Protein 4.35(H) < or = 0.50 mg/dL [facility] 11/03/2024 6:29 AM EST 11/03/2024 6:44 AM EST Generic External Data Provider LAB BLOOD ORDERAB LES Final Result Performing Organization Address [facility] Co de Phone Number [facility] [address] [place] [phone] * (ABNORMAL) Basic Metabolic Panel (11/03/2024 6:29 AM EST) Sodium 136 135 - 145 mmol/L [facility] Potassium 4.4 3.3 - 5.1 mmol/L [facility] Chloride 110(H) 96 - 108 mmol/L [facility] Carbon Dioxide 19(L) 22 - 29 mmol/L [facility] Anion Gap 11(L) 12 - 20 [facility] Urea Nitrogen (BUN) 18(H) 9 - 16 mg/dL [facility] Creatinine, Serum 0.74 0.5 - 1.4 mg/dL [facility] Creatinine Clr Calc Pharmacy 128.3 [facility] Comment:eGFR (calculated fro m the MDRD study equation) and eCrCl(calculated from the Cockcroft-Gault equation) are based ondifferent parameters and may not yield comparable results.If eCrCl result is absurd, please check patient'sheight/weight. Estimated Glomerular Filt Rate >60 [facility] Comment:Chronic Kidney Disea se: Estimated GFR < 60 mL/min/1.56w1Lenlhe Kidney Disease: Estimated GFR < 15 mL/min/1.73m2 Glucose 71 60 - 115 mg/dL [facility] Calcium 8.4 8.4 - 10.2 mg/dL [facility] 11/03/2024 6:29 AM EST 11/03/2024 6:44 AM EST us Generic External Data Provider LAB BLOOD ORDERAB LES Final Result [facility] [address] [place] [address] [phone] * HIV-1/2 Antigen and Antibodies, Fourth Generation, with Reflexes (04/08/2024 11:52 AM EDT) HIV AB/AG Nonreactive Nonreactive [facility] Comment:HIV-1 p24 Ag and/or HIV-1/HIV-2 Ab not detected.A test result that is nonreactive does not exclude thepossibility of exposure to or infection with HIV-1 and/orHIV-2. Nonreactive results in this assay for individualswith prior exposure to HIV-1 and/or HIV-2 may be due toantigen and antibody levels that are below the limit ofdetection of this assay.The [employer] HIV Ag/Ab Combo assay result andsupplemental assay results should be interpreted inconjunction with the patient's clinical presentation,history and other laboratory results. If the results areinconsistent with clinical evidence, additional testing issuggested to confirm the result. Blood Venous blood specimen / Unknown 04/08/2024 11:52 AM EDT 04/08/2024 12:58 PM EDT Alba So NP LAB BLOOD ORDERABLES Final Resu lt [facility] [address] [place] [phone] from Last 3 Months or Most Recently Relevant to Health Maintenance Insurance [facility] C3 HSN FULL Care Teams Clinical Informatics Manager Relationship Specialty Start Date End Date Alba So NP [address] [place] [phone] PCP - General Family Medicine 04/14/24
--- OUTSIDE RECORDS SUMMARY | 2025-01-25 00:23 | XMS_ITS | Encounter Summary ---
Author Organization [employer] Address [address] [facility] [address] [place] [address] Care Team Providers Care Garbage Truck Driver Name Role Phone Nirali Lott Primary Care Provider [phone] Alba So NP Primary Care Provider [phone] Reason for Visit * Reason Onset Date Comments PT1 08/05/2023 Encounter Details Date Type Department Care Team ([facility] Contact Info) Description 08/05/2023 Telephone [facility] [address] [place] [address] Nirali Lott FNP [address] [place] [address] PT1 Social History Tobacco Use Types Packs/Day [...] * Telephone Encounter - Lucy Vasquez - 08/05/2023 1:12 PM EDT PT-1 Request Number [id number] is Pending * Telephone Encounter - Sage Telles - 08/05/2023 12:36 PM EDT Tc alanna Manley with [facility] requesting a PT1: Name of facility: [facility] Specialty: Consult possible liver transplant Location: [address] [place] [address] Date: 08/12/2023 Time: 11:00 am fax: n/a wheelchair: no Visual Lead: no All future appt's documented in this encounter Plan of Treatment Upcoming Encounters Date Type Department Care Team (Late st Contact Info) Description 01/27/2025 2:00 PM EDT Office Visit [facility] [address] [place] [address] Alba So NP [address] [place] [address] documented as of this encounter Visit Diagnoses Not on filedocumented in this encounter Additional Health Concerns Assessment Noted Time PHQ-9 Depression Total Score: 0 06/03/20 23 10:05 AM EDT documented as of this encounter Care Teams Garbage Truck Driver Relationship Specialty Start Date End Date Nirali Lott FNP [address] [place] [address] PCP - General Family Medicine 07/09/23 04/13/24 Alba So NP [address] [place] [address] PCP - General Family Medicine 04/14/24 documented as of this encounter
--- OUTSIDE RECORDS SUMMARY | 2025-01-25 00:23 | XMS_ITS | Encounter Summary ---
Author Organization [employer] Address [address] [facility] 7t [place] [address] Care Team Providers Care Line Servicer Name Role Phone Nirali Lott Primary Care Provider [phone] Alba So NP Primary Care Provider [phone] Reason for Referral * Consultation (Routine) - Closed Specialty Diagnoses / Procedures Referred By Merle t Referred To Contact Hand Surgery Diagnoses Pain in finger of left hand Nirali Lott FNP [address] [place] [address] Phone: tel: fax: [facility] [address] [place] [address] Phone: tel: Referral ID Status Reason Start Date Expiration Date V isits Requested Visits Authorized [id number] Closed Specialty Services Required 12/23/2023 12/22/2024 6 6 Encounter Details Date Type Department Care Team (Late st Contact Info) Description 12/23/2023 Orders Only [facility] [address] [place] [address] Nirali Lott FNP [address] [place] [address] Pain in finger of left hand (Primary [...] Description 01/27/2025 2:00 PM EDT Office Visit [facility] [address] [place] [address] Alba So NP [address] [place] [address] Scheduled Referrals Name Type Priority Associated Diagnoses [...] documented as of this encounter Care Teams Line Servicer Relationship Specialty Start Date End Date Nirali Lott FNP [address] [place] [address] PCP - General Family Medicine 07/09/23 04/13/24 Alba So NP [address] [place] [address] PCP - General Family Medicine 04/14/24 documented as of this encounter
--- OUTSIDE RECORDS SUMMARY | 2025-01-25 00:23 | XMS_ITS | Encounter Summary ---
Author Organization [employer] Address [address] [facility] 7[address] [place] [address] Care Team Providers Care District Associate Judge Name Role Phone Alba So NP Primary Care Provider [phone] Encounter Details Date Type Department Care Team (Late st Contact Info) Description 01/24/2025 Patient Outreach [facility] [address] [place] [address] Alba So NP [address] [place] [address] Social History Tobacco Use Types Packs/Day Years [...] with others, in a hotel, in a skilled nursing, living outside on the street, on a [...] 01/27/2025 2:00 PM EDT Office Visit [facility] [address] [place] [address] Alba So NP [address] [place] [address] documented as of this encounter Visit Diagnoses Not on filedocumented in this encounter Additional Health Concerns Assessment Noted Time PHQ-9 Depression Total Score: 18 024 11:56 AM EST documented as of this encounter Care Teams District Associate Judge Relationship Specialty Start Date End Date Alba So NP [address] [place] [address] PCP - General Family Medicine 04/14/24 documented as of this encounter
--- OUTSIDE RECORDS SUMMARY | 2025-01-25 00:23 | XMS_ITS | Encounter Summary ---
Author Organization [employer] Address [address] [facility] [address] [place] [address] Care Team Providers Care Physician Underwriter Name Role Phone Alba So NP Primary Care Provider [phone] Encounter Details Date Type Department Care Team (Late st Contact Info) Description 12/21/2024 Orders Only [facility] [address] [place] [address] Alba So NP [address] [place] [address] Social History Tobacco Use Types Packs/Day Years [...] with others, in a hotel, in a alf, living outside on the street, on a [...] 01/27/2025 2:00 PM EDT Office Visit [facility] [address] [place] [address] Alba So NP [address] [place] [address] documented as of this encounter Visit Diagnoses Not on filedocumented in this encounter Additional Health Concerns Assessment Noted Time PHQ-9 Depression Total Score: 18 024 11:56 AM EST documented as of this encounter Care Teams Physician Underwriter Relationship Specialty Start Date End Date Alba So NP [address] [place] [address] PCP - General Family Medicine 04/14/24 documented as of this encounter
--- OUTSIDE RECORDS SUMMARY | 2025-01-25 00:23 | XMS_ITS ---
Author Organization [facility] Address [address] [place] [phone] Care Team Providers Care Firer Marine Name Role Phone Nirali Isbell Primary Care Provider Michael Mane Jr [phone] REASON FOR VISIT cancel OV Encounters Encounter Location Date Provider Diagnosis [facility] [address] [place] [phone] 09/24/2023 Michael Escamilla Jr Plan Of Treatment No Information Progress Notes * ALISON MYLESOB:1990 (32 yo M)Acc No.[id number]:09/24/2023 Patient:?ABDIRAHMANNEHEMIAS RANDY :1990???Age:32 Y???Sex:Male Address:[address] [place] [address], [place], [address] * true * Date:? Generated for Marthai harpreet/Lana/eTransmitting on:?01/25/2025 12:22 AM EDT
--- OUTSIDE RECORDS SUMMARY | 2025-01-25 00:23 | XMS_ITS | Encounter Summary ---
Author Organization [employer] Address [address] [facility] [address] [place] [address] Care Team Providers Care Training Coordinator Name Role Phone Alba So GENEVA Primary Care Provider [phone] Reason for Visit * Reason Onset Date Comments chartprep 01/24/2025 Encounter Details Date Type Department Care Team ([facility] st Contact Info) Description 01/24/2025 Telephone [facility] [address] [place] [address] Anastacio Braxton MA chartprep Social History Tobacco Use Types Packs/Day Years [...] with others, in a hotel, in a halfway, living outside on the street, on a [...] encounter Miscellaneous Notes * Telephone Encounter - Anastacio Braxton MA - 01/24/2025 2:56 PM EDT Chart Prep Labs: done Images: done Vaccines due: yes Referrals: complete Screenings: not applicable Overdue care gaps: Oral health screening and Disability screen documented in this encounter Plan of Treatment Upcoming Encounters Date Type Department Care Team (Late st Contact Info) Description 01/27/2025 2:00 PM EDT Office Visit [facility] [address] [place] [address] Alba So NP [address] [place] [address] documented as of this encounter Visit Diagnoses Not on filedocumented in this encounter Additional Health Concerns Assessment Noted Time PHQ-9 Depression Total Score: 18 024 11:56 AM EST documented as of this encounter Care Teams Training Coordinator Relationship Specialty Start Date End Date Alba So NP [address] [place] [address] PCP - General Family Medicine 04/14/24 documented as of this encounter
--- OUTSIDE RECORDS SUMMARY | 2025-01-25 00:23 | XMS_ITS | Encounter Summary ---
Author Organization [employer] Address [address] [facility] [address] [place] [address] Care Team Providers Care Relocation Specialist Name Role Phone Megan Stevenson EQUIPMENT OR MACHINERY CLEANER Primary Care Provider [phone] Jin Mack AGNYani Primary Care Provider Unavail Nirali Diaz EQUIPMENT OR MACHINERY CLEANER Primary Care Provider [phone] Alba So NP Primary Care Provider [phone] Encounter Details Date Type Department Care Team (Late st Contact Info) Description 01/05/2023 Orders Only [facility] [address] [place] [address] Nohemi Greene FNP Social History Tobacco Use [...] empyema, recurrent bacteremia and endocarditis,[place] [facility] [place] for evaluation of chest [...] mom and was in a [facility] [place] [facility], now lives at home [...] Description 01/27/2025 2:00 PM EDT Office Visit [facility] [address], [place] [phone] Alba So NP [address], [place] [phone] documented as of this encounter Procedures Procedure [...] EDT 04/13/2023 3:00 PM EDT Comment:Blood Narrative [facility] - 04/18/2023 5:00 PM EDT Blood Culture (Second) No growth after 5 days. Specimen Source: Blood [facility] Exter nal Provider LAB MICROBIOLOGY - GENERAL ORDERABLES Final Result Performing Organization Address [facility]/ZIP Co de Phone Number [facility] [address] [place] [address] [phone] * Blood Culture (First) (04/13/2023 2:20 PM EDT) Blood 04/13/2023 2:20 PM EDT 04/13/2023 3:00 PM EDT Comment:Blood Narrative [facility] - 04/18/2023 5:00 PM EDT Blood Culture (First) No growth after 5 days. Specimen Source: Blood [facility] Exter nal Provider LAB MICROBIOLOGY - GENERAL ORDERABLES Final Result Performing Organization Address [facility]/ZIP Co de Phone Number [facility] [address] [place] [phone] * (ABNORMAL) Urinalysis, Complete, with Reflex to Culture (03/16/2023 6:50 PM EDT) Color Urine Dark Yellow [facility] Appearance Urine Clear [facility] PH 6.5 5.0 - 9.0 [facility] Glucose Urine UA Negative Negative mg/dL [facility] Urine Blood Small (1+)(A) Negative [facility] Specific [place] - Urine 1.015 1.005 - 1.025 [facility] Urine Protein 100 (2+)(A) Neg-Trace mg/dL [facility] Urine Ketones Negative Negative mg/dL [facility] Nitrite Urine Positive(A) Negative [facility] Leukocyte Esterase Urine Small (1+)(A) Negative [facility] RBC Urine >20(A) 0 - 2 /HPF [facility] Urine WBC 6-10(A) 0 - 5 /HPF [facility] Urine Squamous Epithelial Cell 0-2 0 - 2 /HPF [facility] Urine Bacteria None Seen None Seen [facility] Hyaline Casts, Urine 0-2 0 - 2 /LPF [facility] 03/16/2023 6:50 PM EDT 03/16/2023 7:08 PM EDT Narrative [facility] - 03/16/2023 7:57 PM EDT Urine, Clean Catch us [facility] External Provider LAB URI NE ORDERABLES Final Result [facility] [address] [place] [phone] * (ABNORMAL) CBC auto differential (03/16/2023 5:18 PM EDT) White Blood Count 11.0(H) 4.8 - 10.8 X10*3/uL [facility] Red Blood Count 4.07(L) 4.60 - 5.80 X10*6/uL [facility] Hemoglobin 9.7(L) 14.0 - 18.0 g/dl [facility] Hematocrit 30.7(L) 42.0 - 52.0 % [facility] Mean Corpuscular Volume 75.4(L) 80.0 - 98.0 fL [facility] Mean Corpuscular Hemoglobin 23.8(L) 27.0 - 33.0 pg [facility] Mean Corpuscular HGB Conc 31.6 31.0 - 36.0 g/dl [facility] Red Cell Distribution Width 31.5(H) 11.0 - 16.0 % [facility] Platelet Count 597(H) 160 - 400 X10*3/uL [facility] Mean Platelet Volume 9.8 9.4 - 12.4 fL [facility] Neutrophils Percent Auto 60.7 45 - 73 % [facility] Imm Gran Pct Auto 2.0(H) 0.0 - 0.4 % [facility] Lymphocytes Percent Auto 24.7 20 - 40 % [facility] Monocytes Percent Auto 10.5 2 - 11 % [facility] Eosinophils Percent Auto 1.1 0 - 4 % [facility] Basophils Percent Auto 1.0 0 - 2 % [facility] NRBC Pct Auto 0.0 0.0 - 0.2 /100WBC [facility] Neutrophils Absolute Auto 6.7 2.0 - 8.3 x10*3/uL [facility] Imm Gran Abs Auto 0.22(H) 0.00 - 0.03 X10*3/uL [facility] Lymphocytes Absolute Auto 2.7 1.2 - 4.9 X10*3/uL [facility] Monocytes Absolute Auto 1.2 0.1 - 1.2 X10*3/uL [facility] Eosinophils Absolute Auto 0.1 0.0 - 0.4 X10*3/uL [facility] Basophils Absolute Auto 0.1 0.0 - 0.2 X10*3/uL [facility] NRBC Abs Auto 0.000 0.0 - 0.012 X10*3/uL [facility] 03/16/2023 5:18 PM EDT 03/16/2023 5:24 PM EDT us [facility] External Provider LAB BLO OD ORDERABLES Final Result [facility] [address] [place] [phone] * High Sensitivity Troponin I (03/16/2023 5:18 PM EDT) TROPONIN I HIGH SENSITIVITY 11.4 <3.5 - 35.0 ng/L [facility] Comment:The [place]y high sens itivity Troponin-I results should beused in conjunction with other diagnostic information suchas ECG, clinical observations and information, and patientsymptoms to aid in the diagnosis of [place]. 03/16/2023 5:18 PM EDT 03/16/2023 5:24 PM EDT [facility] External Provider LAB BLO OD ORDERABLES Final Result Performing Organization Address [facility] Co de Phone Number [facility] [address] [place] [phone] * (ABNORMAL) B Type Natriuretic Peptide (BNP) (03/16/2023 5:18 PM EDT) B Type Natriuretic Peptide 378(H) <100 pg/mL [facility] Comment:For those patients w ho are being treated with Natrecor(nesiritide, recombinant BNP), BNP testing should beperformed at least two hours post treatment in order toensure that only endogenous levels of BNP are detected. 03/16/2023 5:18 PM EDT 03/16/2023 5:24 PM EDT [facility] External Provider LAB BLO OD ORDERABLES Final Result Performing Organization Address [facility] Co de Phone Number [facility] [address] [place] [phone] * (ABNORMAL) Lipase (03/16/2023 5:18 PM EDT) Lipase 168(H) 8 - 78 U/L [facility] 03/16/2023 5:18 PM EDT 03/16/2023 5:24 PM EDT [facility] External Provider LAB BLO OD ORDERABLES Final Result Performing Organization Address [facility] Co de Phone Number [facility] [address] [place] [phone] * (ABNORMAL) Basic Metabolic Panel (03/16/2023 5:18 PM EDT) Sodium 139 135 - 145 mmol/L [facility] Potassium 3.0(L) 3.3 - 5.1 mmol/L [facility] Chloride 106 96 - 108 mmol/L [facility] Carbon Dioxide 20(L) 22 - 29 mmol/L [facility] Anion Gap 16 12 - 20 [facility] Urea Nitrogen (BUN) 8(L) 9 - 16 mg/dL [facility] Creatinine, Serum 0.74 0.5 - 1.4 mg/dL [facility] Creatinine Clr Calc Pharmacy 131.5 [facility] Comment:eGFR (calculated fro m the MDRD study equation) and eCrCl(calculated from the Cockcroft-Gault equation) are based ondifferent parameters and may not yield comparable results.If eCrCl result is absurd, please check patient'sheight/weight. Estimated Glomerular Filt Rate >60 [facility] Comment:NOTE: For -Am erican individuals, multiply the result by 1.210.Chronic Kidney Disease: Estimated GFR < 60 mL/min/1.00l6Flsowq Kidney Disease: Estimated GFR < 15 mL/min/1.73m2 Glucose 84 60 - 115 mg/dL [facility] Calcium 9.4 8.4 - 10.2 mg/dL [facility] 03/16/2023 5:18 PM EDT 03/16/2023 5:24 PM EDT us [facility] External Provider LAB BLO OD ORDERABLES Final Result [facility] [address] [place] [phone] * (ABNORMAL) Hepatic Function Panel (03/16/2023 5:18 PM EDT) Bilirubin, Total 5.9(H) 0.0 - 1.0 mg/dL [facility] Bilirubin, Direct 3.5(H) 0.0 - 0.5 mg/dL [facility] Aspartate Amino Transferase 19 5 - 37 U/L [facility] Alanine Aminotransferase 13 0 - 40 U/L [facility] Total Protein 7.7 6.5 - 8.0 g/dL [facility] Albumin Level 3.9 3.5 - 5.0 g/dL [facility] Alkaline Phosphatase 154(H) 39 - 117 U/L [facility] 03/16/2023 5:18 PM EDT 03/16/2023 5:24 PM EDT [facility] External Provider LAB BLO OD ORDERABLES Final Result Performing Organization Address [facility]/ZIP Co de Phone Number [facility] [address] [place] [phone] * Lactic Acid (03/16/2023 5:18 PM EDT) Lactic Acid 1.7 0.5 - 2.0 mmol/L [facility] 03/16/2023 5:18 PM EDT 03/16/2023 5:24 PM EDT [facility] External Provider LAB BLO OD ORDERABLES Final Result Performing Organization Address [facility] Co de Phone Number [facility] [address] [place] [phone] documented in this encounter Visit Diagnoses Not on filedocumented in this encounter Care Teams Relocation Specialist Relationship Specialty Start Date End Date Megan Stevenson FNP PCP - General Family Medicine 03/27/22 04/23/23 Jin Mack AGNP PCP - General Family Medicine 04/24/23 07/08/23 Nirali Lott FNP [address] [place] [phone] PCP - General Family Medicine 07/09/23 04/13/24 Alba So NP [address] [place] [phone] PCP - General Family Medicine 04/14/24 documented as of this encounter
--- OUTSIDE RECORDS SUMMARY | 2025-01-25 00:23 | XMS_ITS | Clinical Summary ---
Author Organization [facility] Address [address] [place] [address], [place] [address] Care Team Providers Care Vp Celebrity Services Name Role Phone Unavailable Primary Care Provider [...] - 19+ 3-dose series) 2007 Influenza Vaccine (Season Ended) 2025 Pneumococcal Vaccine: Pediat rics (0 to 5 Years) and At-Risk Patients (6 to 64 Years) Aged Out No longer eligi ble based on patient's age to complete this topic [place]
--- OUTSIDE RECORDS SUMMARY | 2025-01-25 00:23 | XMS_ITS ---
Author Organization [facility] Address [address] [place] [phone] Care Team Providers Care Cream Dumper Name Role Phone Nirali Isbell Primary Care Provider Michael Mane Jr REASON FOR VISIT new pt appt Encounters Encounter Location Date Provider Diagnosis [facility] [address] [place] [phone] 09/28/2023 Michael Escamilla Jr Plan Of Treatment No Information Progress Notes * ALISON MYLESOB:1990 (32 yo M)Acc No.[id number]:09/28/2023 Patient:?SHAR RANDY :1990???Age:32 Y???Sex:Male Address:[address] [address], [place], [address] * true * Date:? Generated for Marthai harpreet/Lana/eTransmitting on:?01/25/2025 12:23 AM EDT
--- OUTSIDE RECORDS SUMMARY | 2025-01-25 00:23 | XMS_ITS ---
Author Organization [employer] Address [address] [facility] [address]t [place] [address] Care Team Providers Care Import Export Coordinator Name Role Phone Alba So NP Primary Care Provider [phone] [facility] Complex Status:Outreach In Progress (Enrolling) Start date:01/11/2025 Enrollment reason:ADT Feed Overview ADT- Pt admitted [place] [facility] on 01/09[place]25. Case Team Name Relationship Phone Meagan Garnett (Responsible Staff) Continued Care and Services Coordination
--- NOTE | 2025-01-25 00:25 | ED.GENADULT ---
HPI - General Adult General Chief complaint: General Medical Stated complaint: ?Pneumonia Time Seen by Provider: 01/25/25 00:25 History of Present Illness ED Provider: Cristina ROSARIO narrative: The patient is a 34-year-old male with a history of substance use disorder and multiple complications related to his substance use disorder including valvular heart disease. 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 The patient continues to use IV drugs. The patient is supposed to be on chronic anticoagulation. He says that he has not taken any anticoagulation for about 5 days. He has a wound on his left anterior anthony that has been present for a couple of months. He was referred to the wound clinic and he claims to has been going. He also says that 2 weeks ago he was hospitalized at [facility] for pneumonia. He comes to the emergency room today because he says the pain in his left leg has been worse over the last 3 or 4 days. He feels the left leg is more swollen than usual. He says he last used IV heroin this afternoon. I was later able to obtain records from [facility]. He was apparently admitted to the hospital a little over 2 weeks ago on January 09. He was in the hospital for 5 days, discharged on January 13. As part of his hospitalization he had had a CT pulmonary angiogram of the chest which showed multifocal pneumonia suspicious for septic emboli in the setting of possible endocarditis. He was admitted for antibiotic treatment. His blood cultures were ultimately negative. A nasal MRSA swab was negative. While in the hospital he had a psychiatric evaluation to evaluate for capacity. He was deemed to have capacity to make his own medical decisions. He ultimately signed out AMA. At discharge on January 13 he was prescribed cefpodoxime to take for an additional 5 days. He was continued on his previous apixaban, midodrine, spironolactone, methadone, and furosemide. Related Data Home Medications ?Medication ?Instructions ?Recorded ?Confirmed hydroxyzine HCl 50 mg tablet 50 mg PO TID PRN Anxiety 03/30/24 11/03/24 methadone 10 mg/mL oral 105 mg PO DAILY 09/13/24 12/25/24 concentrate (Methadone Intensol) albuterol sulfate 90 mcg/actuation 1 puff inhalation QID PRN wheezing 10/10/24 11/03/24 aerosol inhaler (Ventolin HFA) ferrous sulfate 325 mg (65 mg 325 mg PO DAILY 10/10/24 11/03/24 iron) tablet,delayed release magnesium oxide 400 mg PO DAILY 10/10/24 11/03/24 silver sulfadiazine 1 % topical 1 appl topical Q OTHER DAY 10/10/24 11/03/24 cream thiamine HCl (vitamin B1) 100 mg 100 mg PO DAILY 10/10/24 11/03/24 tablet (Vitamin B-1) rivaroxaban 20 mg tablet (Xarelto) 20 mg PO DAILY@1700 10/14/24 11/03/24 Previous Rx's ?Medication ?Instructions ?Recorded doxycycline monohydrate 100 mg 100 mg PO Q12H #8 caps 11/04/24 capsule rivaroxaban 20 mg tablet 20 mg PO DAILY #30 tabs 12/09/24 albuterol sulfate 90 mcg/actuation 2 inh inhalation Q4-6H PRN 12/25/24 breath activated powder inhaler shortness of breath or wheezing #1 ea doxycycline hyclate 100 mg capsule 100 mg PO BID 10 days #20 caps 12/25/24 naloxone 4 mg/actuation nasal 4 mg intranasal Q2M PRN opioid 12/25/24 spray (Narcan) overdose #2 ea Allergies Allergy/AdvReac Type Severity Reaction Status Date / Time No Known Allergies Allergy Verified 01/24/25 22:54 [No Known Allergies*] Review of Systems Review of Systems: Yes all other systems are reviewed and are negative PMFSH Past Medical History Medical History Rhabdomyolysis Anemia LUCERO (acute kidney injury) Polysubstance abuse Opioid use disorder Opioid use disorder, severe, dependence Substance abuse MSSA bacteremia Bacteremia Bacteremia Right heart failure Steatosis, liver Tricuspid valve stenosis Anasarca HCV (hepatitis C virus) Endocarditis Pulmonary embolism Surgical History History of tricuspid valve replacement with bioprosthetic valve Social History Social History Household Members: Other Household Members Other:: penitentiary Housing: Homeless Do you presently have visiting nurse or other home services: No Unable to assess alcohol history related to: Refusing to respond Alcohol intake: current Alcohol intake frequency: 0-2 drinks per day Alcohol type: beer and hard liquor Patient Tobacco Use Status: Current everyday Tobacco user Tobacco use type: Cigarette Cigarette Packs Per Day: 1 Cigarettes Per Day: 10 Years Smoked: 10 Smoked in Last 30 Days: Yes Second Hand Smoke Exposure: No Use of substances other than those prescribed or required for medical reasons: Yes Substance Use Type: Crack/Cocaine and Heroin Substance Use Frequency: Daily Last Used Substance: Just Prior to Admission Any prior treatment program specific to substance use: No Advance Directives: Yes Advance Directives on File: Yes Advance Directives Date on File: 04/16/21 Do you have a plan to hurt others: No Plan service: No Current occupational status: unemployed Physical Exam ED Vital Signs: Vital Signs - 24 hr 01/24/25 22:51 01/25/25 03:40 01/25/25 06:00 Temperature 97.6 F 98.7 F 98.8 F Pulse Rate 107 H 97 Respiratory Rate 18 16 18 Blood Pressure 134/88 128/82 122/82 Pulse Oximetry 95 96 97 Oxygen Delivery Method Room Air Room Air Room Air 01/25/25 09:01 Temperature 97.9 F Pulse Rate 99 Respiratory Rate 18 Blood Pressure 118/87 Pulse Oximetry 98 Oxygen Delivery Method Room Air BMI result Body Mass Index 22.5 Const Other: The patient is an unkempt, chronically ill-appearing 34-year-old male. He seems restless. He looks quite chronically ill. It is not obvious that he looks acutely ill. HENMT Other: Face is symmetrical. Mucous membranes moist. Eyes General: appearance normal, both eyes and all related structures Conjunctivae: conjunctivae normal Pupils: Equal, round and reactive pupils present EOM: EOMs intact bilaterally Neck Other: The patient has good range of motion of the neck. No obvious adenopathy. Resp Effort & Inspection: normal respiratory effort Auscultation: clear to auscultation bilaterally Cardio Other: The patient has a regular rate and rhythm. He has a very loud murmur. GI Other: The abdomen is protuberant but seems soft and nontender. Skin Other: The skin is dry. He has a lot of chronic changes to both lower legs, more so in the left lower leg where there was also a wound on the lower anterior anthony which looks chronic. Neuro Other: The patient is awake and alert. He has a very restless affect. Cranial nerves seem intact. He seems to have intact strength and sensation in his extremities. Cranial nerves: Yes Equal, round and reactive pupils present Extrem Other: The patient has a lot of varicosities on both lower legs, more so on the left leg. There is what looks like a chronic wound on the anterior aspect of the lower portion of the left lower leg. The left lower leg seems Caputo and somewhat more swollen than the right lower leg. The thighs do not seem as asymmetrical. He has good pulses in the feet. Course Reevaluation(s) Reevaluation #1: The patient was signed out to me by Dr. Araiza at 07:00. The signed out was that he was medical cleared the pending evaluation from recovery team. The patient was seen by Shayy Avila, no bed available at [facility] therefore he will be discharged Time: 12:37 Medications Administered Discontinued Medications Generic Name Dose Route Start Last Admin Trade Name Freq PRN Reason Stop Dose Admin Morphine Sulfate 8 mg 01/25/25 00:41 01/25/25 01:18 Morphine Sulfate 10 Mg/Ml Cartridge IM 01/25/25 00:42 Not Given ONCE ONE Protocol Medical Decision Making Medical Decision Making [facility] Narrative: The patient is a very chronically ill 34-year-old male on methadone who is an IV drug user who was still using IV drugs including heroin and cocaine. He has a history of a prosthetic tricuspid valve. He also has a history of PEs and is on apixaban. He presents today complaining of left leg pain primarily. He is afebrile. His oxygen saturations on room air are good. He has a CBC that shows a white count of 7.5 with a normal differential. Chest x-ray shows no acute findings. His chemistries are unremarkable. He has a chronic wound on the left anthony which he says he gets seen at the wound clinic. Given that his primary complaint seemed to be left leg pain and swelling we obtained a left lower extremity ultrasound. There was no evidence of DVT. Given the absence of fever, elevated white count, or left shift I doubt the patient has a significant new infectious process. The patient's clinical evaluation is complicated by his bizarre demeanor which seems to be typical to his demeanor on previous emergency room visits. Ultimately, given the lack of fever, his normal white count and differential, his good oxygenation on room air, and the fact that he fell asleep while in the emergency room and was maintaining a good oxygen saturation and normal heart rate while sleeping I think the probably is not acutely ill. The patient has fallen quite heavily asleep in the emergency room. This may be because of his previous IV drug use. My overall impression is that his workup in the emergency room today is negative and that he does not require hospitalization or further workup in the emergency room tonight. The patient is expressing some interest in stopping IV drug use. I will place a recovery team consult. He denies suicidality however. I will therefore be signing the patient out to the oncoming emergency physician at the end of my shift pending evaluation by the recovery team in the morning. The patient seems to be sleeping peacefully the moment. If before he is seen by the recovery team he changes his mind and wishes to leave I think he may be discharged. Lab Data 01/24/25 23:36 01/24/25 23:36 Labs: Lab Results 01/24/25 Range/Units 23:36 WBC 7.5 (4.8-10.8) X10*3/uL RBC 4.13 L (4.60-5.80) X10*6/uL Hgb 8.3 L (14.0-18.0) g/dl Hct 27.8 L (42.0-52.0) % MCV 67.3 L (80.0-98.0) fL MCH 20.1 L (27.0-33.0) pg MCHC 29.9 L (31.0-36.0) g/dl RDW 22.8 H (11.0-16.0) % Plt Count 420 H D (160-400) X10*3/uL MPV 9.4 (9.4-12.4) fL Immature Gran % (Auto) 0.7 H (0.0-0.4) % Neut % (Auto) 62.1 (45-73) % Lymph % (Auto) 23.0 (20-40) % [place] % (Auto) 11.0 (2-11) % Eos % (Auto) 2.4 (0-4) % Baso % (Auto) 0.8 (0-2) % Lymph # (Auto) 1.7 (1.2-4.9) X10*3/uL [place] # (Auto) 0.8 (0.1-1.2) X10*3/uL Eos # (Auto) 0.2 (0.0-0.4) X10*3/uL Baso # (Auto) 0.1 (0.0-0.2) X10*3/uL Abs Immat Gran (auto) 0.05 H (0.00-0.03) X10*3/uL Absolute Neuts (auto) 4.7 (2.0-8.3) x10*3/uL Absolute Nucleated RBC 0.000 (0.0-0.012) X10*3/uL Nucleated RBC % (auto) 0.0 (0.0-0.2) /100WBC Sodium 139 (135-145) mmol/L Potassium 3.8 (3.3-5.1) mmol/L Chloride 112 H (96-108) mmol/L Carbon Dioxide 21 L (22-29) mmol/L Anion Gap 10 L (12-20) BUN 14 (9-16) mg/dL Creatinine 0.84 (0.5-1.4) mg/dL Estim Creat Clear Calc 112.2 Estimated GFR > 60 Random Glucose 108 (60-115) mg/dL Calcium 8.4 (8.4-10.2) mg/dL Total Bilirubin 0.8 (0.0-1.0) mg/dL AST 41 H (5-37) U/L ALT 24 (0-40) U/L Alkaline Phosphatase 189 H (39-117) U/L Total Protein 6.6 (6.5-8.0) g/dL Albumin 3.1 L (3.5-5.0) g/dL Influenza Type A (PCR) NEGATIVE (Negative) Influenza Type B (PCR) NEGATIVE (Negative) RSV RNA Qual (PCR) NEGATIVE (Negative) SARS-CoV-2 RNA (RT-PCR) NEGATIVE (Negative) Discharge Plan Discharge Clinical Impression: Left leg pain, Wound of left leg, Active intravenous drug use Additional Instructions: The ultrasound of your left leg does not show any clot in your left leg. Your blood testing today is not suggesting any significant infection. Please continue your regular methadone. Please also continue all of your regular medications including your blood thinning medication. Please follow up with the [facility] (your primary care provider) to make sure that you were up-to-date on all your medications. Also please follow up with the wound clinic (Dr. Acevedo's office) for ongoing assistance of the wounds on your left anthony. Please try to stop using IV drugs. If you wish to speak to somebody about stopping drug use you can contact the [facility] for assistance. Return to the emergency room if significantly worse. Prescriptions: No Action methadone [Methadone Intensol] 10 mg/mL Concentrate 105 mg PO DAILY doxycycline monohydrate 100 mg Capsule 100 mg PO Q12H Qty: 8 0RF albuterol sulfate 90 mcg/actuation aerosol powdr breath activated 2 inh inhalation Q4-6H PRN (Reason: shortness of breath or wheezing) Qty: 1 0RF naloxone [Narcan] 4 mg/actuation spray,non-aerosol 4 mg intranasal Q2M PRN (Reason: opioid overdose) Qty: 2 0RF Rx Instructions: spray 1 dose into ONE nostril; alternate nostrils w each dose until help arrives doxycycline hyclate 100 mg capsule 100 mg PO BID 10 Days Qty: 20 0RF hydroxyzine HCl 50 mg Tablet 50 mg PO TID PRN (Reason: Anxiety) silver sulfadiazine 1 % cream 1 appl topical Q OTHER DAY thiamine HCl (vitamin B1) [Vitamin B-1] 100 mg Tablet 100 mg PO DAILY albuterol sulfate [Ventolin HFA] 90 mcg/actuation HFA aerosol inhaler 1 puff INHALATION QID PRN (Reason: wheezing) ferrous sulfate 325 mg (65 mg iron) tablet,delayed release (DR/EC) 325 mg PO DAILY magnesium oxide 400 mg magnesium Tablet 400 mg PO DAILY Xarelto 20 mg tablet 20 mg PO DAILY@1700 rivaroxaban 20 mg tablet 20 mg PO DAILY Qty: 30 0RF Rx Instructions: must administer with evening meal Referrals: [facility] [Provider Group] [facility] [place] [facility] [Provider Group] [facility] [Outside] - 1 day (Please call Carlos from [facility] to follow up tomorrow. Carlos's number is [phone].) [facility] [Outside] Print Language: Icelandic
--- NOTE | 2025-01-25 00:58 | PC.NURSE ---
on pt arrival restless, pt appears to have taken some drug not supplied by this hospital. pt is ill kept, left lower leg old wound. curtains left open and pt was visibly altered and curtain closed by pt and now the pt is sound alseep. provider made aware due to morphine is ordered.
[2025-01-25 03:40] VITALS: BP 128/82; PULSE 97; RESP 16; TEMP 37.1; O2SAT 96
--- NOTE | 2025-01-25 03:44 | PC.NURSE ---
pt arrousable sleeping, no s/s of distress. vitals stable
--- NOTE | 2025-01-25 03:55 | PC.NURSE ---
pt sleepy, denies s1 and states he wants to see a disaster recovery specialist in the morning.
[2025-01-25 06:00] VITALS: BP 122/82; RESP 18; TEMP 37.1; O2SAT 97
[2025-01-25 09:01] VITALS: BP 118/87; PULSE 99; RESP 18; TEMP 36.6; O2SAT 98
--- NOTE | 2025-01-25 11:02 | PC.NURSE ---
Pt continues resting on stretcher, respirations equal and unlabored. Per addiction, [facility] reviewing pt's chart for detox.
--- NOTE | 2025-01-25 12:22 | MHC.RECOVRN ---
[facility] declined pt due to leg wound, reports he needs a higher level of care. [facility] does not have beds. Pt declined Jas. Pt to follow up from community.
== END 2025-01-25 13:47 | disposition home or self-care (01) ==
PROVIDERS: Emergency Medicine; Emergency Provider Emergency Medicine
DX: R60.0 Localized edema (principal); M79.605 Pain in left leg; F11.90 Opioid use, unspecified, uncomplicated; R05.9 Cough, unspecified; R06.02 Shortness of breath; Z03.818 Encounter for observation for suspected exposure to other biological agents ruled out; Z79.899 Other long term (current) drug therapy
CPT/HCPCS: 0241U; 36415; 71046; 80053; 85025; 93971; 99284; S9485

== ENCOUNTER → 2025-01-24 23:45 | Outpatient (BNV) | payer MEDICAID, SELFPAY | PROVIDERS: Emergency Provider Emergency Medicine; Visit Provider Radiology Diagnostic Radiology | DX: R05.9 Cough, unspecified (principal); R06.02 Shortness of breath | CPT/HCPCS: 71046 ==

== ENCOUNTER → 2025-01-25 00:39 | Outpatient (BNV) | payer MEDICAID, SELFPAY | PROVIDERS: Emergency Provider Emergency Medicine; Visit Provider Radiology Diagnostic Radiology | DX: M79.605 Pain in left leg (principal); R22.42 Localized swelling, mass and lump, left lower limb | CPT/HCPCS: 93971 ==

== ENCOUNTER 2025-01-27 14:01 | Emergency (ER) | payer MEDICAID, SELFPAY ==
[2025-01-27 14:11] VITALS: BP 115/62; PULSE 91; RESP 20; TEMP 37.1; O2SAT 98; BMI 24.2
--- NOTE | 2025-01-27 14:11 | ED.GENADULT ---
HPI - General Adult General Chief complaint: Wound/Laceration Stated complaint: wound check Time Seen by Provider: 01/27/25 16:39 Source: patient, RN notes reviewed and old records reviewed Mode of arrival: ambulatory History of Present Illness ED Provider: Enid Johnson PA-C HPI narrative: 34-year-old male with a past medical history of polysubstance use disorder, valvular heart disease, emesis endocarditis, presenting to the ED complaining of acute on chronic wound noted to left lower extremity. Per triage note patient was sent from [facility] for wound recheck. Patient very agitated and uncooperative during this mortgage underwriter's evaluation, not forthcoming with information, yelling, stating he just needs his wound wrapped, & Wound Care to see him so he can get out of here. Denies any active substance use to this mortgage underwriter. Per triage note from earlier patient was falling asleep during triage / appeared under the influence and admitted to using IV heroin this morning. Denies SI/HI Related Data Home Medications ?Medication ?Instructions ?Recorded ?Confirmed hydroxyzine HCl 50 mg tablet 50 mg PO TID PRN Anxiety 03/30/24 11/03/24 methadone 10 mg/mL oral 105 mg PO DAILY 09/13/24 12/25/24 concentrate (Methadone Intensol) albuterol sulfate 90 mcg/actuation 1 puff inhalation QID PRN wheezing 10/10/24 11/03/24 aerosol inhaler (Ventolin HFA) ferrous sulfate 325 mg (65 mg 325 mg PO DAILY 10/10/24 11/03/24 iron) tablet,delayed release magnesium oxide 400 mg PO DAILY 10/10/24 11/03/24 silver sulfadiazine 1 % topical 1 appl topical Q OTHER DAY 10/10/24 11/03/24 cream thiamine HCl (vitamin B1) 100 mg 100 mg PO DAILY 10/10/24 11/03/24 tablet (Vitamin B-1) rivaroxaban 20 mg tablet (Xarelto) 20 mg PO DAILY@1700 10/14/24 11/03/24 Previous Rx's ?Medication ?Instructions ?Recorded doxycycline monohydrate 100 mg 100 mg PO Q12H #8 caps 11/04/24 capsule rivaroxaban 20 mg tablet 20 mg PO DAILY #30 tabs 12/09/24 albuterol sulfate 90 mcg/actuation 2 inh inhalation Q4-6H PRN 12/25/24 breath activated powder inhaler shortness of breath or wheezing #1 ea doxycycline hyclate 100 mg capsule 100 mg PO BID 10 days #20 caps 12/25/24 naloxone 4 mg/actuation nasal 4 mg intranasal Q2M PRN opioid 12/25/24 spray (Narcan) overdose #2 ea cephalexin 500 mg capsule 500 mg PO QID 7 days #28 caps 01/27/25 Allergies Allergy/AdvReac Type Severity Reaction Status Date / Time No Known Allergies Allergy Verified 01/27/25 14:16 [No Known Allergies*] Review of Systems Review of Systems: Yes all other systems are reviewed and are negative Constitutional: Constitutional: Reports as per [facility] Past Medical History Attestation statement: The following information was validated with the patient. Source: old records reviewed Medical History Rhabdomyolysis Anemia LUCERO (acute kidney injury) Polysubstance abuse Opioid use disorder Opioid use disorder, severe, dependence Substance abuse MSSA bacteremia Bacteremia Bacteremia Right heart failure Steatosis, liver Tricuspid valve stenosis Anasarca HCV (hepatitis C virus) Endocarditis Pulmonary embolism Surgical History History of tricuspid valve replacement with bioprosthetic valve Social History Social History Household Members: Other Household Members Other:: jail Housing: Homeless Do you presently have visiting nurse or other home services: No Unable to assess alcohol history related to: Refusing to respond Alcohol intake: current Alcohol intake frequency: 0-2 drinks per day Alcohol type: beer and hard liquor Patient Tobacco Use Status: Current everyday Tobacco user Tobacco use type: Cigarette Cigarette Packs Per Day: 1 Cigarettes Per Day: 10 Years Smoked: 10 Smoked in Last 30 Days: No Second Hand Smoke Exposure: No Use of substances other than those prescribed or required for medical reasons: No Substance Use Type: Crack/Cocaine and Heroin Advance Directives: Yes Advance Directives on File: Yes Advance Directives Date on File: 04/16/21 service: No Current occupational status: unemployed Physical Exam ED Vital Signs: Vital Signs - 24 hr 01/27/25 14:11 Temperature 98.7 F Pulse Rate 91 Respiratory Rate 20 Blood Pressure 115/62 Pulse Oximetry 98 Oxygen Delivery Method Room Air BMI result Body Mass Index 24.2 Const General: cooperative, healthy appearing and no acute distress Orientation/consciousness: patient oriented x3 Limitations: no limitations HENMT Head: Yes normal to inspection and Yes atraumatic Ears: hearing grossly normal bilaterally General nose exam: Normal external nose present Face and sinus: Yes normal facial exam Eyes General: appearance normal, both eyes and all related structures EOM: EOMs intact bilaterally Neck Neck: Yes normal visual inspection and Yes no meningeal signs Resp Effort & Inspection: normal respiratory effort and no respiratory distress Cardio Rate: regular rate Skin Other: Chronic appearing wound noted to left lower extremity without surrounding erythema or warmth. Slight clear drainage noted. Mildly tender to palpation. No pitting edema or calf tenderness Rashes: no rashes Neuro General: patient oriented x3, tone normal and no meningeal signs Cranial nerves: Yes CN's II-XII intact bilaterally Gait exam (Neuro): Normal gait present Extrem General: Yes normal to inspection Psych Thought content: suicidality and no homicidality Course Course Course Narrative: This is an RME performed by Lucita Garcia CNP: Additional HPI, ROS, PE not included below will be deferred to primary provider. Patient is a 34-year-old male who presents emergency department for evaluation of left lower extremity wound, states it is increasing in pain and swelling since his most recent visit to the emergency department 01/25/2025. Sent back here from [facility] today for a wound recheck. He is falling asleep during the triage repeatedly, states last used IV heroin earlier this morning, appear to be under the influence currently. Plan: serum labs, spoke with studio operations engineer in charge regarding safety concerns for patient to be in the waiting room, will be brought back to pain ED - No leukocytosis or fever. H&H at patient's baseline. Labs otherwise reassuring Medical Decision Making Medical Decision Making MDM Narrative: 34-year-old male with a past medical history of polysubstance use disorder, valvular heart disease, emesis endocarditis, presenting to the ED complaining of acute on chronic wound noted to left lower extremity. On exam vital signs stable, NAD, nontoxic appearing, chronic appearing wound noted to left lower extremity as depicted above. Patient very upset/ agitated and uncooperative with history and physical with this mortgage underwriter, yelling at staff. dressing applied to wound. Recommended wound care follow-up. Will send p.o. Keflex to pharmacy due to slight cleare drainage noted. However no acute warmth or erythema appreciated. Low suspicion for osteomyelitis or DVT. Concern for active substance use. Patient proceeded to walk out of the emergency department after dressing was applied. Please refer to course for remaining clinical decision making, interpretation of labs/imaging results, and discussions with consultants and/or family members. Results discussed with patient including worrisome signs and symptoms and strict return precautions, and when to return to the emergency department. They verbalized understanding and feel safe for discharge at this time. Differential Diagnosis Differential Diagnoses: The differential diagnosis associated with the presentation includes As above Lab Data MDM Lab Attestation statement: I reviewed the patient's lab results. 01/27/25 14:34 01/27/25 14:34 Labs: Lab Results 01/27/25 Range/Units 14:34 WBC 7.6 (4.8-10.8) X10*3/uL RBC 4.26 L (4.60-5.80) X10*6/uL Hgb 8.5 L (14.0-18.0) g/dl Hct 29.1 L (42.0-52.0) % MCV 68.3 L (80.0-98.0) fL MCH 20.0 L (27.0-33.0) pg MCHC 29.2 L (31.0-36.0) g/dl RDW 22.4 H (11.0-16.0) % Plt Count 418 H (160-400) X10*3/uL MPV 9.1 L (9.4-12.4) fL Immature Gran % (Auto) 0.7 H (0.0-0.4) % Neut % (Auto) 49.5 (45-73) % Lymph % (Auto) 32.4 (20-40) % Redwood % (Auto) 13.8 H (2-11) % Eos % (Auto) 2.8 (0-4) % Baso % (Auto) 0.8 (0-2) % Lymph # (Auto) 2.5 (1.2-4.9) X10*3/uL Redwood # (Auto) 1.0 (0.1-1.2) X10*3/uL Eos # (Auto) 0.2 (0.0-0.4) X10*3/uL Baso # (Auto) 0.1 (0.0-0.2) X10*3/uL Abs Immat Gran (auto) 0.05 H (0.00-0.03) X10*3/uL Absolute Neuts (auto) 3.8 (2.0-8.3) x10*3/uL Absolute Nucleated RBC 0.000 (0.0-0.012) X10*3/uL Nucleated RBC % (auto) 0.0 (0.0-0.2) /100WBC Sodium 138 (135-145) mmol/L Potassium 4.5 (3.3-5.1) mmol/L Chloride 109 H (96-108) mmol/L Carbon Dioxide 22 (22-29) mmol/L Anion Gap 12 (12-20) BUN 15 (9-16) mg/dL Creatinine 0.78 (0.5-1.4) mg/dL Estim Creat Clear Calc 118.1 Estimated GFR > 60 Random Glucose 93 (60-115) mg/dL Calcium 8.3 L (8.4-10.2) mg/dL Total Bilirubin 0.9 (0.0-1.0) mg/dL AST 41 H (5-37) U/L ALT 23 (0-40) U/L Alkaline Phosphatase 205 H (39-117) U/L Total Protein 6.7 (6.5-8.0) g/dL Albumin 3.1 L (3.5-5.0) g/dL Radiology Impression Discussion of test interpretation with radiology: I have reviewed the radiologist's reading. External Record Review External record reviewed: Inpatient record, Office record, Outpatient record, Prior outpatient labs, Prior outpatient radiology, Primary care record and Outside ED record Tests considered The following testing was considered but not selected: As above Prescription Management I considered prescription management with: Pain Medication and Antibiotic Chronic Conditions Patient?s care impacted by: Other Social Determinants Patient?s care significantly limited by Social Determinants of Health including: Inadequate housing, Low income, Alcoholism and drug addiction in family, Problems related to primary support group, Unemployment, Problems related to employment and Other Social Determinant of Health Discharge Plan Discharge Clinical Impression: Wound of left leg Patient Disposition: Home, Self-Care Instructions: Chronic Wounds (ED) Additional Instructions: Keep your wound dry and clean We sent antibiotics to the pharmacy for you and case wound worsens. We do not think it is acutely infected at this time however there was drainage noted on your dressing. You need to follow-up with wound care If area worsens return to the emergency department Consider detox. Stop using drugs and alcohol this can kill you Prescriptions: New cephalexin 500 mg capsule 500 mg PO QID 7 Days Qty: 28 0RF No Action methadone [Methadone Intensol] 10 mg/mL Concentrate 105 mg PO DAILY doxycycline monohydrate 100 mg Capsule 100 mg PO Q12H Qty: 8 0RF albuterol sulfate 90 mcg/actuation aerosol powdr breath activated 2 inh inhalation Q4-6H PRN (Reason: shortness of breath or wheezing) Qty: 1 0RF naloxone [Narcan] 4 mg/actuation spray,non-aerosol 4 mg intranasal Q2M PRN (Reason: opioid overdose) Qty: 2 0RF Rx Instructions: spray 1 dose into ONE nostril; alternate nostrils w each dose until help arrives doxycycline hyclate 100 mg capsule 100 mg PO BID 10 Days Qty: 20 0RF hydroxyzine HCl 50 mg Tablet 50 mg PO TID PRN (Reason: Anxiety) silver sulfadiazine 1 % cream 1 appl topical Q OTHER DAY thiamine HCl (vitamin B1) [Vitamin B-1] 100 mg Tablet 100 mg PO DAILY albuterol sulfate [Ventolin HFA] 90 mcg/actuation HFA aerosol inhaler 1 puff INHALATION QID PRN (Reason: wheezing) ferrous sulfate 325 mg (65 mg iron) tablet,delayed release (DR/EC) 325 mg PO DAILY magnesium oxide 400 mg magnesium Tablet 400 mg PO DAILY Xarelto 20 mg tablet 20 mg PO DAILY@1700 rivaroxaban 20 mg tablet 20 mg PO DAILY Qty: 30 0RF Rx Instructions: must administer with evening meal Referrals: [facility] [Provider Group] - 3 days Print Language: Portuguese
[2025-01-27 14:37] LABS: MANUAL DIFF FLAG NO
--- NOTE | 2025-01-27 14:39 | PC.NURSE ---
Pt was reluctant to come to ED once he realized he should have gone to wound clinic. Pt admits to having needs and paraphanalia on him. Security is aware.
[2025-01-27 14:41] LABS: Basophils Absolute Auto 0.1 X10*3/uL (0.0-0.2); Basophils Percent Auto 0.8 % (0-2); Eosinophils Absolute Auto 0.2 X10*3/uL (0.0-0.4); Eosinophils Percent Auto 2.8 % (0-4); Hematocrit 29.1 % (42.0-52.0); Hemoglobin 8.5 g/dl (14.0-18.0); Imm Gran Abs Auto 0.05 X10*3/uL (0.00-0.03); Imm Gran Pct Auto 0.7 % (0.0-0.4); Lymphocytes Absolute Auto 2.5 X10*3/uL (1.2-4.9); Lymphocytes Percent Auto 32.4 % (20-40); Mean Corpuscular HGB Conc 29.2 g/dl (31.0-36.0); Mean Corpuscular Volume 68.3 fL (80.0-98.0); Mean Platelet Volume 9.1 fL (9.4-12.4); Monocytes Percent Auto 13.8 % (2-11); Neutrophils Absolute Auto 3.8 x10*3/uL (2.0-8.3); Neutrophils Percent Auto 49.5 % (45-73); Platelet Count 418 X10*3/uL (160-400); Red Blood Count 4.26 X10*6/uL (4.60-5.80); Red Cell Distribution Width 22.4 % (11.0-16.0); White Blood Count 7.6 X10*3/uL (4.8-10.8)
--- OUTSIDE RECORDS SUMMARY | 2025-01-27 14:44 | XMS_ITS | Encounter Summary ---
Author Organization [employer] Address [address] [facility] [address] [place] [address] Care Team Providers Care Modeling Teacher Name Role Phone Nirali Lott Primary Care Provider [phone] Alba So NP Primary Care Provider [phone] Reason for Visit * Reason Onset Date Comments Hospital Follow-up 04/05/2024 Encounter Details Date Type Department Care Team ([facility] st Contact Info) Description 04/05/2024 Telephone [facility] [address] [place] [address] Nirali Lott FNP [address] [place] [address] Hospital Follow-up Social History Tobacco Use Types [...] from pt requesting a HDF appt. Hospital: [facility] Date of admission: 03/30 Discharge date: 04/01 Diagnosed: Chest Pain documented in this encounter Plan of Treatment Not on file documented as of this encounter Visit Diagnoses Not on filedocumented in this encounter Additional Health Concerns Assessment Noted Time PHQ-9 Depression Total Score: 0 06/03/20 23 10:05 AM EDT documented as of this encounter Care Teams Modeling Teacher Relationship Specialty Start Date End Date Nirali Lott FNP [address] [place] [address] PCP - General Family Medicine 07/09/23 04/13/24 Alba So NP [address] [place] [address] PCP - General Family Medicine 04/14/24 documented as of this encounter
--- OUTSIDE RECORDS SUMMARY | 2025-01-27 14:44 | XMS_ITS | Encounter Summary ---
Author Organization [employer] Address [address] [facility] 7t [place] [address] Care Team Providers Care Mixing Machine Tender Cork Rod Name Role Phone Alba So NP Primary Care Provider [phone] Reason for Visit * Reason Onset Date Comments Hospital Follow-up 09/30/2024 Encounter Details Date Type Department Care Team ([facility] st Contact Info) Description 09/30/2024 Telephone [facility] [address] [place] [address] Alba So NP [address] [place] [address] Hospital Follow-up Social History Tobacco Use Types [...] from pt requesting a HDF appt. Hospital: [facility] Date of admission: 09/23/24 Discharge date: 09/29/24 Diagnosed: Pneumonia / SOB / Chest pain *Send message to [place] Clinical Care Coordinators documented in this encounter Plan of Treatment Not on file documented as of this encounter Visit Diagnoses Not on filedocumented in this encounter Additional Health Concerns Assessment Noted Time PHQ-9 Depression Total Score: 0 06/03/20 23 10:05 AM EDT documented as of this encounter Care Teams Mixing Machine Tender Cork Rod Relationship Specialty Start Date End Date Alba So NP [address] [place] [address] PCP - General Family Medicine 04/14/24 documented as of this encounter
--- OUTSIDE RECORDS SUMMARY | 2025-01-27 14:44 | XMS_ITS | Encounter Summary ---
Author Organization [employer] Address [address] [facility] [address] [place] [address] Care Team Providers Care Electronic Publications Specialist Name Role Phone Alba So GENEVA Primary Care Provider [phone] Encounter Details Date Type Department Care Team (Late st Contact Info) Description 04/26/2024 Orders Only [facility] [address] [place], [place] [id number] Varun Givens, PharmD [address] [place] [address] Social History Tobacco Use Types Packs/Day Years [...] with others, in a hotel, in a custodial, living outside on the street, on a [...] documented as of this encounter Care Teams Electronic Publications Specialist Relationship Specialty Start Date End Date Alba So NP [address] [place] [address] PCP - General Family Medicine 04/14/24 documented as of this encounter
--- OUTSIDE RECORDS SUMMARY | 2025-01-27 14:45 | XMS_ITS | Encounter Summary ---
Author Organization [employer] Address [address] [facility] [address] [place] [address] Care Team Providers Care Technology Lead Name Role Phone Alba So NP Primary Care Provider [phone] Reason for Visit * Reason Comments Care Coordination CHW outreach for SDO H PT-1 and food needs-LVM Encounter Details Date Type Department Care Team (Latest Contact Info) Description 01/23/[address] [facility] [address] [place] [address] Alba So NP [address] [place] [address] Care Coordination (CHW outreach for SDOH PT-1 [...] Wednesdays, and Walk-In Urgent Care Located in [facility]. Patient provided with after-hours line for [facility], , which offer night time triage service and option to transfer toon call provider if needed. documented in this encounter Plan of Treatment Not on file documented as of this encounter Visit Diagnoses Not on filedocumented in this encounter Additional Health Concerns Assessment Noted Time PHQ-9 Depression Total Score: 18 024 11:56 AM EST documented as of this encounter Care Teams Technology Lead Relationship Specialty Start Date End Date Alba So NP [address] [place] [address] PCP - General Family Medicine 04/14/24 documented as of this encounter
--- OUTSIDE RECORDS SUMMARY | 2025-01-27 14:45 | XMS_ITS | Encounter Summary ---
Author Organization [employer] Address [address] [facility] [address] [place] [address] Care Team Providers Care Scalemaker Name Role Phone Nirali Lott Primary Care Provider [phone] Alba So NP Primary Care Provider [phone] Reason for Visit * Reason Onset Date Comments PT1 10/02/2023 Encounter Details Date Type Department Care Team ([facility] Contact Info) Description 10/02/2023 Telephone [facility] [address] [place] [address] Nirali Lott FNP [address] [place] [address] PT1 Social History Tobacco Use Types Packs/Day [...] 10/02/2023 11:00 AM EST PT-1 Request Number [id number] is Pending * Telephone Encounter - Christine Mak - 10/02/2023 10:32 AM EST Tc alanna Nancy with [facility] requesting PT1 transportation. Date: 10/20/2022 Time: 10:15 Visits: 12 a year Address: [address] [place] [address] Facility: [facility] Wheel Chair: n/a Export Manager Needed: n/a documented in this encounter Plan of Treatment Not on file documented as of this encounter Visit Diagnoses Not on filedocumented in this encounter Additional Health Concerns Assessment Noted Time PHQ-9 Depression Total Score: 0 06/03/20 10:05 AM EDT documented as of this encounter Care Teams Scalemaker Relationship Specialty Start Date End Date Nirali Lott FNP [address] [place] [address] PCP - General Family Medicine 07/09/23 04/13/24 Alba So NP [address] [place] [address] PCP - General Family Medicine 04/14/24 documented as of this encounter
--- OUTSIDE RECORDS SUMMARY | 2025-01-27 14:45 | XMS_ITS | Encounter Summary ---
Author Organization [employer] Address [address] [facility] [address] [place] [address] Care Team Providers Care Foundry Tender Name Role Phone Jin Mack Primary Care Provider Unavail able Nirali Lott Primary Care Provider [phone] Alba So NP Primary Care Provider [phone] Encounter Details Date Type Department Care Team (Late st Contact Info) Description 06/08/2023 Orders Only [facility] [address] [place] [address] Nirali Lott FNP [address] [place] [address] Chronic hepatitis C without hepatic coma (CMS/HCC) [...] documented as of this encounter Care Teams Foundry Tender Relationship Specialty Start Date End Date Jin Mack AGNP PCP - General Family Medicine 04/24/23 07/08/23 Nirali Lott FNP [address] [place] [address] PCP - General Family Medicine 07/09/23 04/13/24 Alba So NP [address] [place] [address] PCP - General Family Medicine 04/14/24 documented as of this encounter
--- OUTSIDE RECORDS SUMMARY | 2025-01-27 14:45 | XMS_ITS | Data Portability ---
Author Organization [facility] Q Design [facility], Main Office Address [address] [place] [address] Care Team Providers Care Agency Owner Name Role Phone [facility] OTHER Assessment Encounter Date Assessment Date Assessment LastModified by Organization Details LastModified Time 04/09/2023 04/09/2023 04/01/23 wbc 6.8, hgb 9.2, plt 291, na 145, k 3.5, creat 0.9 04/08/23 na 140, k 3.8, creat 0.7 t bili 1.5, alk phos 144, ast/alt 13/7 [email or web address] Not available 04/09/2023 08:41:20 Plan of Treatment [...] Address Organization Details Recorded Time Septic shock 68130888 Active 2022 Martinez Rendon MD [address], [address], [place], [address], [facility] 3 15:13:19 Infective endocarditis of tricuspid valve 292051661 Active 2022 Martinez Rendon MD [address], [address], [place], [address], [facility] 3 15:13:41 Pulmonary embolism 41273537 Active 2022 Martinez Rendon MD [address], [address], [place], [address], [place] [facility] 3 15:13:48 Chronic hepatitis C 102229190 Active 2022 Martinez Rendon MD [address], [address], [place], [address], [facility] 3 15:13:55 Anemia 332508064 Active 2022 Martinez Rendon MD [address], [address], [place], [address], [facility] 3 15:14:52 Cirrhosis of liver 17168617 Active 2022 Martinez Rendon MD [address], [address], [place], [address], [facility] 3 15:14:58 Congestive heart failure 68237206 Active 2022 Martinez Rendon MD [address], [address], [place], [address], [facility] 3 15:15:02 Polysubstance abuse 802415979 Active 2022 Martinez Rendon MD [address], [address], [place], [address], [facility] 3 15:15:08 Unsheltered homelessness Active 2022 Martinez Rendon MD [address], [address], [place], [address], [facility] 3 15:15:20 Tobacco user 368270735 Active 2022 Martinez Rendon MD [address], [address], [place], [address], [facility] 3 15:35:03 Primary insomnia 4402335 Active 2022 Martinez Rendon MD [address], [address], [place], [address], [facility] 3 15:34:02 Problem Notes None recorded. Medical Equipment None Reported. Allergies No known drug allergies Medications Not known to be on any medication Vitals None Recorded Social History Question Answer Notes LastModified by Organizat ion Details LastModified Time Tobacco Smoking Status Current Every Day Smoker Martinez Rendon MD [address], [address], [place], [address], [facility] 03/24/2023 15:12:49 What Is Your Level Of [...] SNOMED-CT Code Diagnosis ICD10 Code Diagnosis Note [id number] Martinez Rendon MD [facility] on [address] [place] [address] 03/24/2023 15:03:52 03/30/2023 15:17:15 Septic shock 32240232 R65.21 see HPInow onnafcilli n 2 gm q 4 for 26 daysadd probiotic bidmonitor cbcupdate ID with concerns Polysubstance abuse 4452 47097 F19.10 maintained onmethadon e 40 mg qdwill establish with clinicSUDS counselor at facility Infective endocarditis of tricuspid valve 031136507 I33.0 see HPIhx of TV endocardit is s/p bioprosthe tic TVR complicate d by bioprosthe tic valve stenosismo nitor for sxadded to PMHpatient is followed by CT surgery and cardiology at [facility] Pulmonary embolism 12623 003 I26.99 xarelto 20 mg qdmonitor respirator y status Chronic hepatitis C 1283 57641 B18.2 untreated with resultant cirrhosis of liver with hx etohwill refer to GI Cirrhosis of liver 007 K74.69 see above Anemia 372732524 D50.8 appears due to malnutriti on and iron deficiency monitor cbciron studies prndietary consult prn Congestive heart failure 74157360 I50.22 carrying dxmaintain ed on spironolac tone 25 mg qdmonitor respirator y status and need to titrate Unsheltere d homelessness [id number] 49980 Z59.02 social professionals to be involvedma y be barrier to dischargep atient with repeated AMA discharges added to PMH Tobacco user 554287664 Z 72.0 currently refusing nicotine patchis smoking at facilityco nsidering quitting, encouraged may start patch tomorrow [id number] Martinez Rendon MD [facility] on [address] [place] [address] 03/25/2023 15:30:14 03/30/2023 15:28:18 Primary insomnia 0950318 F51.01 see HPIwill starttraza done 25 mg qhs prnmonitor for effect and need to titrate Polysubstance abuse 4452 28041 F19.10 methadone 40 mg qdcurrentl y stable at baseline [id number] SCOTTIE Chen [facility] on [address] [place] [address] 03/30/2023 08:21:03 04/01/2023 10:41:27 Septic shock 45810254 R65.21 nafcillin 2 gm q 4 hrs til 04/19/23moni tor cbcf/u with ID s Polysubstance abuse 4452 71141 F19.10 methadone 40 mg qdf/u with methadone clinicSUDs counseling at facility Infective endocarditis of tricuspid valve 767949866 I33.0 hx of TV endocardit is s/p bioprosthe tic TVR complicate d by bioprosthe tic valve stenosispt notes sob intermitte ntly since TVR a couple of years agowaiting for CXR resultsfol lowed by CT surgery and cardiology at [facility] Pulmonary embolism 22787 003 I26.99 xarelto 20 mg qdmonitor resp status, bleeding risk Chronic hepatitis C 1283 23220 B18.2 untreated with resultant cirrhosis of liver with hx etohreferr ed to GI Cirrhosis of liver 007 K74.69 see above Anemia 395172734 D50.8 appears due to malnutriti on and iron deficiency monitor cbciron studies prndietary consult prn Congestive heart failure 80311355 I50.22 compensate dspironola ctone 25 mg qdmonitor respirator y status and need to titrate Unsheltere d homelessness [id number] 18802 Z59.02 social media assistant involvedba rrier to dischargep atient with repeated AMA discharges Primary insomnia 6707097 F51.01 increase trazodone to 50 mg qhsmonitor for effect [id number] Martinez Rendon MD [facility] on [address] [place] [address] 03/31/2023 16:07:11 04/03/2023 16:00:10 Polysubstance abuse 017690298 F19.10 see HPImethado ne 40 mg qd currentlyp atient can f/u at methadone clinic for dose adjustment Septic shock 18897306 R6 5.21 nafcillin 2 gm q 4 to complete courserepe at cbc in am Pulmonary embolism 03196 003 I26.99 xarelto 20 mg qdmonitor respirator y statuswith atypical chest pain would consider CT imaging if symptoms changeto ED for acute decompensa tion [id number] Martinez Rendon MD [facility] on [address] [place] [address] 04/03/2023 15:42:16 04/06/2023 16:19:22 Atypical chest pain 589982490 R07.89 exam reassuring question underlying neuropathi c painwill start gabapentin 100 mg tid and followmoni tor need for chest CT depending on change in presentati on Septic shock 33519037 R6 5.21 see HPI with shock and endocardit isnafcilli n 2 gm q 4 for 26 days from admitmonit or cbcupdate ID with concernswb c count reassuring Polysubstance abuse 4452 44192 F19.10 methadone 40 mg qdSUDS counselor at facility Pulmonary embolism 34901 003 I26.99 xarelto 20 mg qdmonitor respirator y statuscont inuedsee above [id number] SCOTTIE Chen [facility] on [address] [place] [address] 04/06/2023 14:52:36 04/13/2023 16:26:47 Septic shock 94884897 R65.21 nafcillin 2 gm q 4 hrs til 04/19/23moni tor cbcf/u with ID s Polysubstance abuse 4452 08457 F19.10 methadone 40 mg qdf/u with methadone clinicSUDs counseling at facility Infective endocarditis of tricuspid valve 791425094 I33.0 hx of TV endocardit is s/p bioprosthe tic TVR complicate d by bioprosthe tic valve stenosispt notes sob intermitte ntly since TVR a couple of years agonow somewhat worse with abd distension discussed with Dr Rendon, will get abd UL, nurse aware and will orderfollo wed by CT surgery and cardiology at [facility] Pulmonary embolism 37402 003 I26.99 xarelto 20 mg qdmonitor resp status, bleeding risk Chronic hepatitis C 1283 61098 B18.2 untreated with resultant cirrhosis of liver with hx etohreferr ed to GI Cirrhosis of liver K74.69 now with possible ascitesabd UL as aboveincre ase spironolac tone to 50 mg qd (was on 25 mg qd)monitor for worsening sxs Anemia 900831976 D50.8 appears due to malnutriti on and iron deficiency monitor cbciron studies prndietary consult prn Congestive heart failure 13972281 I50.22 increased sobspirono lactone 50 mg qd (as above)anoop tor respirator y status and need to titrate [id number] Martinez Rendon MD [facility] on [address] [place] [address] 04/07/2023 13:38:54 04/14/2023 09:58:52 Abdominal pain 21580534 R10.31 abd discomfort with distention ultrasound pendingCMP in ammonitor LFTs and need for GI referral Atypical chest pain 1025 83077 R07.89 see abovewill increase gabapentin to 200 mg tid and followmoni tor need for chest CT depending on change in presentati on Septic shock 04616012 R6 5.21 see HPI with shock and endocardit isnafcilli n 2 gm q 4 through 71monitor cbcupdate ID with concernswb c count reassuring [id number] SCOTTIE Chen [facility] on [address] [place] [address] 04/09/2023 08:34:52 04/22/2023 08:32:51 Infective endocarditis of tricuspid valve 472398704 I33.0 hx of TV endocardit is s/p bioprosthe tic TVR complicate d by bioprosthe tic valve stenosispt notes sob intermitte ntly since TVR a couple of years agowaiting for abd UL to be donefollow ed by CT surgery and cardiology at [facility] Cirrhosis of liver 98092 007 K74.69 now with possible ascitesabd UL as abovespiro nolactone 50 mg qdmonitor for worsening sxs Polysubstance abuse 4452 26095 F19.10 methadone 40 mg qddiscusse d with and will not add narcotic in pt with hx of polysubsta nce abuse - pain appears to be chronic in naturef/u with methadone clinicSUDs counseling at facility Septic shock 40968310 R6 5.21 nafcillin 2 gm q 4 hrs til 04/19/23moni tor cbcf/u with ID s Pulmonary embolism 73887 003 I26.99 xarelto 20 mg qdmonitor resp status, bleeding risk Chronic hepatitis C 1283 46600 B18.2 untreated with resultant cirrhosis of liver with hx etohreferr ed to GI Anemia 923847989 D50.8 appears due to malnutriti on and iron deficiency monitor cbciron studies prndietary consult prn Congestive heart failure 80300490 I50.22 stable todayspiro nolactone 50 mg qd (as above)anoop tor respirator y status and need to titrate Abdominal pain 93932903 R10.31 abd discomfort with distention ultrasound pendingCMP in ammonitor LFTs again on 04/13/23 and need for GI referral Atypical chest pain 1025 64169 R07.89 see abovegabap entin 200 mg tid and followmoni tor need for chest CT depending on change in presentati on [id number] Martinez Rendon MD [facility] on [address] [place] [address] 04/13/2023 15:29:49 04/22/2023 08:58:15 Polysubstance abuse 669287305 F19.10 maintained onmethadon e 40 mg qdwill write for oxycodone 5 mg q 8 prn breakthrou gh painthis will be discontinu ed at time of dischargep atient not to leave facility with oxycodone Infective endocarditis of tricuspid valve 871368885 I33.0 see HPIhx of TV endocardit is s/p bioprosthe tic TVR complicate d by bioprosthe tic valve stenosisco mplete Ab on 04/15 with ID signing off at this time Pulmonary embolism 94719 003 I26.99 xarelto 20 mg qdmonitor respirator y statushold day prior to paracentes is and day of procedure Chronic hepatitis C 1283 04800 B18.2 untreated with resultant cirrhosis of liver with hx etoh and now significan t asciteswil l refer to GI for further workup and evalwill refer to interventi onal radiology for paracentes iss Cirrhosis of liver 007 K74.69 see above [id number] Martinez Rendon MD [facility] on [address] [place] [address] 04/15/2023 13:43:11 04/22/2023 10:39:02 Infective endocarditis of tricuspid valve 542227936 I33.0 see HPIhx of TV endocardit is s/p bioprosthe tic TVR complicate d by bioprosthe tic valve stenosisan tibiotic completeID to set time to remove picc line Pulmonary embolism 86375 003 I26.99 xarelto 20 mg qdmonitor respirator y statushold day prior to paracentes is and day of procedure Polysubstance abuse 4452 45236 F19.10 maintained onmethadon e 40 mg qdoxycodon [...] for paracentes is Restlessne ss and agitation 446866411 R45.1 Patient verbally abusive and patronizin g [...] request psych eval if patient will accept [id number] SCOTTIE Chen [facility] on [address] [place] [address] 04/23/2023 12:25:55 04/29/2023 07:46:12 Infective endocarditis of tricuspid valve 902975024 I33.0 pt ok to discharge today to homeless shelterhx of TV endocardit is s/p bioprosthe tic TVR complicate d by bioprosthe tic valve stenosisco mpleted Ab on 04/15/23 with ID signing off at this timef/u with cards, pcp Pulmonary embolism 52016 003 I26.99 xarelto 20 mg qd - rx written for #30f/u with pcp Chronic hepatitis C 1283 41120 B18.2 untreated with resultant cirrhosis of liver with hx etoh and now significan t ascitesref erred to GI for further workup and evalpt refused paracentes is when he was sent out to [facility] ED Polysubstance abuse 4452 61004 F19.10 pt received his last dose methadone [...] Member ID Guarantor Name 04/07/2023 1 [place] [facility] Norberto Coriano [id number] Norberto Coriano 04/09/2023 1 [place] [facility] Norberto Coriano [id number] Norberto Coriano 04/13/2023 1 [place] Norberto Coriano [id number] Norberto Coriano 04/15/2023 1 [place] [facility] Norberto Coriano [id number] Norberto Coriano 04/23/2023 1 [place] Norberto Coriano [id number] Norberto Coriano Notes Date Note Type Note [...] requesting increase in gabapentin Martinez Rendon MD [address] [place] [address], [address], [place], [address], [facility] [employer] 04/07/2023 13:48:54 04/09/2023 text/html pt seen today [...] and back pain. SCOTTIE Chen [address], [address], [place], [address], [facility] 04/09/2023 14:32:40 04/13/2023 text/html Patient is a [...] c/o pain Martinez Rendon MD [address], [address], [place], [address], [facility] [employer] 04/13/2023 15:45:02 04/15/2023 text/html Patient is a [...] theraputic paracentesis. Martinez Rendon MD [address], [address], [place], [address], [facility] 04/15/2023 14:38:05 04/23/2023 text/html pt seen today fo r discharge summary. pt is discharging to a homeless half-way. he has completed his antibiotics on 04/15/23 [...] to complete course. SCOTTIE Chen [address], [address], [place], [address], [facility] 04/23/2023 13:14:23
--- OUTSIDE RECORDS SUMMARY | 2025-01-27 14:45 | XMS_ITS | Encounter Summary ---
Author Organization [employer] Address [address] [place] [address] Care Team Providers Care Millwright Name Role Phone Nirali Lott Primary Care Provider [phone] Alba So NP Primary Care Provider [phone] Reason for Visit * Reason Onset Date Comments Referral 10/16/2023 Encounter Details Date Type Department Care Team ([facility] Contact Info) Description 10/16/2023 Telephone [facility] MEDICINE [address] [place] [address] Nirali Lott FNP [address] [place] [address] Referral Social History Tobacco Use Types Packs/Day [...] - 10/16/2023 10:22 AM EST Tc from [facility] ortho never received referral. documented in this encounter Plan of Treatment Not on file documented as of this encounter Visit Diagnoses Not on filedocumented in this encounter Additional Health Concerns Assessment Noted Time PHQ-9 Depression Total Score: 0 06/03/20 23 10:05 AM EDT documented as of this encounter Care Teams Millwright Relationship Specialty Start Date End Date Nirali Lott FNP [address] [place] [address] PCP - General Family Medicine 07/09/23 04/13/24 Alba So NP [address] [place] [address] PCP - General Family Medicine 04/14/24 documented as of this encounter
--- OUTSIDE RECORDS SUMMARY | 2025-01-27 14:45 | XMS_ITS ---
Author Organization [employer] Address [address] [facility] [address]t [place] [address] Care Team Providers Care Pillowcase Folder Name Role Phone Alba So NP Primary Care Provider [phone] CHW Complex Status:Outreach In Progress (Enrolling) Start date:01/11/2025 Enrollment reason:ADT Feed Overview ADT- [place] [facility] [place]. Case Team Name Relationship Phone Meagan Garnett (Responsible Staff) Continued Care and Services Coordination
--- OUTSIDE RECORDS SUMMARY | 2025-01-27 14:45 | XMS_ITS ---
Author Organization [employer] Address [address] [facility] 7t [place] [address] Care Team Providers Care Human Resources Benefits Coordinator Name Role Phone Alba So NP Primary Care Provider [phone] CM Complex Status:Outreach In Progress (Enrolling) Start date:01/11/2025 Enrollment reason:ADT Feed Overview ADT- Pt admitted to [facility] on 01/09/25. Case Team Name Relationship Phone Lucy Cervantes RN Registered Nurse(Responsible S taff) Continued Care and Services Coordination
--- OUTSIDE RECORDS SUMMARY | 2025-01-27 14:45 | XMS_ITS | Clinical Summary ---
Author Organization [facility] Address [address] [place] [address], [place] [address] Care Team Providers Care Svp Business Development Name Role Phone Unavailable Primary Care Provider [...] Influenza Vaccine (Season Ended) 2025 Pneumococcal Vaccine: Peds ( 0 to 5 Years) and At-Risk Patients (6 to 49 Years) Aged Out No longer eligible b ased on patient's age to complete this topic [place]
--- OUTSIDE RECORDS SUMMARY | 2025-01-27 14:45 | XMS_ITS | Encounter Summary ---
Author Organization [employer] Address [address] [facility] [address] [place] [address] Care Team Providers Care Feather Cutting Machine Feeder Name Role Phone Alba So NP Primary Care Provider [phone] Encounter Details Date Type Department Care Team (Late st Contact Info) Description 01/25/2025 Patient Outreach [facility] [address] [place] [address] Alba So NP [address] [place] [address] Social History Tobacco Use Types Packs/Day Years [...] with others, in a hotel, in a long-term, living outside on the street, on a [...] documented as of this encounter Care Teams Feather Cutting Machine Feeder Relationship Specialty Start Date End Date Alba So NP [address] [place] [address] PCP - General Family Medicine 04/14/24 documented as of this encounter
--- OUTSIDE RECORDS SUMMARY | 2025-01-27 14:45 | XMS_ITS | Encounter Summary ---
Author Organization [employer] Address [address] [facility] 7t [place] [address] Care Team Providers Care Ibm Mainframe Developer Name Role Phone Nirali Lott Primary Care Provider [phone] Alba So NP Primary Care Provider [phone] Reason for Referral * Consultation (Routine) - Closed Specialty Diagnoses / Procedures Referred By Merle t Referred To Contact Hand Surgery Diagnoses Pain in finger of left hand Nirali Lott FNP [address] [place] [address] Phone: tel: fax: [facility] [address] [place] [address] Phone: tel: Referral ID Status Reason Start Date Expiration Date V isits Requested Visits Authorized [id number] Closed Specialty Services Required 12/23/2023 12/22/2024 6 6 Encounter Details Date Type Department Care Team (Late st Contact Info) Description 12/23/2023 Orders Only [facility]S [address] [place] [address] Nirali Lott FNP [address] [place] [address] Pain in finger of left hand (Primary [...] documented as of this encounter Care Teams Ibm Mainframe Developer Relationship Specialty Start Date End Date Nirali Lott FNP [address] [place] [address] PCP - General Family Medicine 07/09/23 04/13/24 Alba So NP [address] [place] [address] PCP - General Family Medicine 04/14/24 documented as of this encounter
--- OUTSIDE RECORDS SUMMARY | 2025-01-27 14:45 | XMS_ITS | Encounter Summary ---
Author Organization [employer] Address [address] [facility] [address] [place] [address] Care Team Providers Care Atomic Fuel Assembler Name Role Phone Alba So GENEVA Primary Care Provider [phone] Reason for Visit * Reason Onset Date Comments chartprep 01/24/2025 Encounter Details Date Type Department Care Team ([facility] st Contact Info) Description 01/24/2025 Telephone [facility] MEDICINE [address] [place] [address] Anastacio Braxton MA chartprep Social History Tobacco [...] documented as of this encounter Care Teams Atomic Fuel Assembler Relationship Specialty Start Date End Date Alba So NP [address] [place] [address] PCP - General Family Medicine 04/14/24 documented as of this encounter
--- OUTSIDE RECORDS SUMMARY | 2025-01-27 14:45 | XMS_ITS | Encounter Summary ---
Author Organization [employer] Address [address] [facility] [address] [place] [address] Care Team Providers Care Economics Professor Name Role Phone Nirali Lott Primary Care Provider [phone] Alba So NP Primary Care Provider [phone] Reason for Visit * Reason Onset Date Comments PT1 08/05/2023 Encounter Details Date Type Department Care Team ([facility] Contact Info) Description 08/05/2023 Telephone [facility] MEDICINE [address] [place] [address] Nirali Lott FNP [address] [place] [address] PT1 Social History Tobacco Use Types Packs/Day [...] 08/05/2023 1:12 PM EDT PT-1 Request Number [id number] is Pending * Telephone Encounter - Sage Telles - 08/05/2023 12:36 PM EDT Tc alanna Manley with [facility] Partner requesting a PT1: Name of facility: [facility] Specialty: Consult possible liver transplant Location: [address] [place] [address] Date: 08/12/2023 Time: 11:00 am fax: n/a wheelchair: no Delicatessen Store Manager: no All future appt's documented in this encounter Plan of Treatment Not on file documented as of this encounter Visit Diagnoses Not on filedocumented in this encounter Additional Health Concerns Assessment Noted Time PHQ-9 Depression Total Score: 0 06/03/20 23 10:05 AM EDT documented as of this encounter Care Teams Economics Professor Relationship Specialty Start Date End Date Nirali Lott FNP [address] [place] [address] PCP - General Family Medicine 07/09/23 04/13/24 Alba So NP [address] [place] [address] PCP - General Family Medicine 04/14/24 documented as of this encounter
--- OUTSIDE RECORDS SUMMARY | 2025-01-27 14:45 | XMS_ITS | Encounter Summary ---
Author Organization [employer] Address [address] [facility] 7t [place] [address] Care Team Providers Care Speech Communication Professor Name Role Phone Megan Stevenson SILK SNAPPER Primary Care Provider [phone] Jin Mack AGNYani Primary Care Provider Unavail Nirali Diaz SILK SNAPPER Primary Care Provider [phone] Alba So NP Primary Care Provider [phone] Encounter Details Date Type Department Care Team (Late st Contact Info) Description 01/05/2023 Orders Only [facility] [address] [place] [address] Nohemi Greene FNP Social History Tobacco Use [...] empyema, recurrent bacteremia and endocarditis,was admitted to [facility] on 07/16/22 for evaluation of chest pain [...] [facility] [place] [facility] now lives at home with [...] EDT 04/13/2023 3:00 PM EDT Comment:Blood Narrative [facility] - 04/18/2023 5:00 PM EDT Blood Culture (Second) No growth after 5 days. Specimen Source: Blood [facility] Exter nal Provider LAB MICROBIOLOGY - GENERAL ORDERABLES Final Result Performing Organization Address [facility] Co de Phone Number [facility] [address] [place] [phone] * Blood Culture (First) (04/13/2023 2:20 PM EDT) Blood 04/13/2023 2:20 PM EDT 04/13/2023 3:00 PM EDT Comment:Blood Narrative [facility] - 04/18/2023 5:00 PM EDT Blood Culture (First) No growth after 5 days. Specimen Source: Blood [facility] Exter nal Provider LAB MICROBIOLOGY - GENERAL ORDERABLES Final Result Performing Organization Address [facility] de Phone Number [facility] [address] [place] [phone] * (ABNORMAL) Urinalysis, Complete, with Reflex to Culture (03/16/2023 6:50 PM EDT) Color Urine Dark Yellow [facility] Appearance Urine Clear [facility] PH 6.5 5.0 - 9.0 [facility] Glucose Urine UA Negative Negative mg/dL [facility] Urine Blood Small (1+)(A) Negative [facility] Specific [place] - Urine 1.015 1.005 - 1.025 [facility] Urine Protein 100 (2+)(A) Neg-Trace mg/dL [facility] Urine Ketones Negative Negative mg/dL [facility] Nitrite Urine Positive(A) Negative [facility] Leukocyte Esterase Urine Small (1+)(A) Negative [facility] RBC Urine >20(A) 0 - 2 /HPF [facility] Urine WBC 6-10(A) 0 - 5 /HPF [facility] Urine Squamous Epithelial Cell 0-2 0 - 2 /HPF [facility] Urine Bacteria None Seen None Seen [facility] Hyaline Casts, Urine 0-2 0 - 2 /LPF [facility] 03/16/2023 6:50 PM EDT 03/16/2023 7:08 PM EDT Narrative [facility] - 03/16/2023 7:57 PM EDT Urine, Clean Catch us [facility] External Provider LAB URI NE ORDERABLES Final Result [facility] [address] [place] [phone] * (ABNORMAL) CBC auto differential (03/16/2023 5:18 PM EDT) White Blood Count 11.0(H) 4.8 - 10.8 X10*3/uL [facility] Red Blood Count 4.07(L) 4.60 - 5.80 X10*6/uL [facility] Hemoglobin 9.7(L) 14.0 - 18.0 g/dl [facility] Hematocrit 30.7(L) 42.0 - 52.0 % [facility] Mean Corpuscular Volume 75.4(L) 80.0 - 98.0 fL [facility] Mean Corpuscular Hemoglobin 23.8(L) 27.0 - 33.0 pg [facility] Mean Corpuscular HGB Conc 31.6 31.0 - 36.0 g/dl [facility] Red Cell Distribution Width 31.5(H) 11.0 - 16.0 % [facility] Platelet Count 597(H) 160 - 400 X10*3/uL [facility] Mean Platelet Volume 9.8 9.4 - 12.4 fL [facility] Neutrophils Percent Auto 60.7 45 - 73 % [facility] Imm Gran Pct Auto 2.0(H) 0.0 - 0.4 % [facility] Lymphocytes Percent Auto 24.7 20 - 40 % [facility] Monocytes Percent Auto 10.5 2 - 11 % [facility] Eosinophils Percent Auto 1.1 0 - 4 % [facility] Basophils Percent Auto 1.0 0 - 2 % [facility] NRBC Pct Auto 0.0 0.0 - 0.2 /100WBC [facility] Neutrophils Absolute Auto 6.7 2.0 - 8.3 x10*3/uL [facility] Imm Gran Abs Auto 0.22(H) 0.00 - 0.03 X10*3/uL [facility] Lymphocytes Absolute Auto 2.7 1.2 - 4.9 X10*3/uL [facility] Monocytes Absolute Auto 1.2 0.1 - 1.2 X10*3/uL [facility] Eosinophils Absolute Auto 0.1 0.0 - 0.4 X10*3/uL [facility] Basophils Absolute Auto 0.1 0.0 - 0.2 X10*3/uL [facility] NRBC Abs Auto 0.000 0.0 - 0.012 X10*3/uL [facility] 03/16/2023 5:18 PM EDT 03/16/2023 5:24 PM EDT [facility] External Provider LAB BLO OD ORDERABLES Final Result [facility] [address] [place] [phone] * High Sensitivity Troponin I (03/16/2023 5:18 PM EDT) TROPONIN I HIGH SENSITIVITY 11.4 <3.5 - 35.0 ng/L [facility] Comment:The Coley high sens itivity Troponin-I results should beused in conjunction with other diagnostic information suchas ECG, clinical observations and information, and patientsymptoms to aid in the diagnosis of MS. 03/16/2023 5:18 PM EDT 03/16/2023 5:24 PM EDT [facility] External Provider LAB BLO OD ORDERABLES Final Result Performing Organization Address [facility] Co de Phone Number [facility] [address] [place] [phone] * (ABNORMAL) B Type Natriuretic Peptide (BNP) (03/16/2023 5:18 PM EDT) Pathologist [facility] B Type Natriuretic Peptide 378(H) <100 pg/mL [facility] Comment:For those patients w ho are being treated with Natrecor(nesiritide, recombinant BNP), BNP testing should beperformed at least two hours post treatment in order toensure that only endogenous levels of BNP are detected. 03/16/2023 5:18 PM EDT 03/16/2023 5:24 PM EDT [facility] External Provider LAB BLO OD ORDERABLES Final Result Performing Organization Address [facility] de Phone Number [facility] [address] [place] [phone] * (ABNORMAL) Lipase (03/16/2023 5:18 PM EDT) [facility] Lipase 168(H) 8 - 78 U/L [facility] 03/16/2023 5:18 PM EDT 03/16/2023 5:24 PM EDT [facility] External Provider LAB BLO OD ORDERABLES Final Result Performing Organization Address [facility] Co de Phone Number [facility] [address] [place] [phone] * (ABNORMAL) Basic Metabolic Panel (03/16/2023 5:18 PM EDT) [facility] Sodium 139 135 - 145 mmol/L [facility] Potassium 3.0(L) 3.3 - 5.1 mmol/L [facility] Chloride 106 96 - 108 mmol/L [facility] Carbon Dioxide 20(L) 22 - 29 mmol/L [facility] Anion Gap 16 12 - 20 [facility] Urea Nitrogen (BUN) 8(L) 9 - 16 mg/dL [facility] Creatinine, Serum 0.74 0.5 - 1.4 mg/dL [facility] Creatinine Clr Calc Pharmacy 131.5 [facility] Comment:eGFR (calculated fro m the MDRD study equation) and eCrCl(calculated from the Cockcroft-Gault equation) are based ondifferent parameters and may not yield comparable results.If eCrCl result is absurd, please check patient'sheight/weight. Estimated Glomerular Filt Rate >60 [facility] Comment:NOTE: For -Am erican individuals, multiply the result by 1.210.Chronic Kidney Disease: Estimated GFR < 60 mL/min/[id number] Kidney Disease: Estimated GFR < 15 mL/min/1.73m2 Glucose 84 60 - 115 mg/dL [facility] Calcium 9.4 8.4 - 10.2 mg/dL [facility] 03/16/2023 5:18 PM EDT 03/16/2023 5:24 PM EDT [facility] External Provider LAB BLO OD ORDERABLES Final Result [facility] [address] [place] [phone] * (ABNORMAL) Hepatic Function Panel (03/16/2023 5:18 PM EDT) Bilirubin, Total 5.9(H) 0.0 - 1.0 mg/dL [facility] Bilirubin, Direct 3.5(H) 0.0 - 0.5 mg/dL [facility] Aspartate Amino Transferase 19 5 - 37 U/L [facility] Alanine Aminotransferase 13 0 - 40 U/L [facility] Total Protein 7.7 6.5 - 8.0 g/dL [facility] Albumin Level 3.9 3.5 - 5.0 g/dL [facility] Alkaline Phosphatase 154(H) 39 - 117 U/L [facility] 03/16/2023 5:18 PM EDT 03/16/2023 5:24 PM EDT [facility] External Provider LAB BLO OD ORDERABLES Final Result Performing Organization Address City/[facility]/ZIP Co de Phone Number [facility] [address] [place] [phone] Lactic Acid (03/16/2023 5:18 PM EDT) Lactic Acid 1.7 0.5 - 2.0 mmol/L [facility] 03/16/2023 5:18 PM EDT 03/16/2023 5:24 PM EDT [facility] External Provider LAB BLO OD ORDERABLES Final Result Performing Organization Address [facility] Co de Phone Number [facility] [address] [place] [phone] documented in this encounter Visit Diagnoses Not on filedocumented in this encounter Care Teams Speech Communication Professor Relationship Specialty Start Date End Date Megan Stevenson FNP PCP - General Family Medicine 03/27/22 04/23/23 Jin Mack AGNP PCP - General Family Medicine 04/24/23 07/08/23 Nirali Lott FNP [address] [place] [address] PCP - General Family Medicine 07/09/23 04/13/24 Alba So NP [address] [place] [address] PCP - General Family Medicine 04/14/24 documented as of this encounter
--- OUTSIDE RECORDS SUMMARY | 2025-01-27 14:45 | XMS_ITS | Encounter Summary ---
Author Organization [employer] Address [address] [facility] [address] [place] [address] Care Team Providers Care Nozzle Tender Name Role Phone Alba So NP Primary Care Provider [phone] Encounter Details Date Type Department Care Team (Late st Contact Info) Description 01/24/2025 Patient Outreach [facility] [address] [place] [address] Alba So NP [address] [place] [address] Social History Tobacco Use Types Packs/Day Years [...] documented as of this encounter Care Teams Nozzle Tender Relationship Specialty Start Date End Date Alba oS NP [address] [place] [phone] PCP - General Family Medicine 04/14/24 documented as of this encounter
--- OUTSIDE RECORDS SUMMARY | 2025-01-27 14:45 | XMS_ITS | Encounter Summary ---
Author Organization [employer] Address [address] [facility] [address] [place] [address] Care Team Providers Care Public Health Doctor Name Role Phone Alba So NP Primary Care Provider [phone] Encounter Details Date Type Department Care Team (Late st Contact Info) Description 12/21/2024 Orders Only [facility] [address] [place] [address] Alba So NP [address] [place] [address] Social History Tobacco Use Types Packs/Day Years [...] documented as of this encounter Care Teams Public Health Doctor Relationship Specialty Start Date End Date Alba So NP [address] [place] [phone] PCP - General Family Medicine 04/14/24 documented as of this encounter
--- OUTSIDE RECORDS SUMMARY | 2025-01-27 14:45 | XMS_ITS | Clinical Summary ---
Author Organization [employer] Address [address] [place] [address] [address] [place] [address] Care Team Providers Care Target Aircraft Technician Name Role Phone Alba So GENEVA Primary Care Provider [phone] Allergies No known active allergies Medications * [...] treatment, ambulance called and expect called to [facility]. 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 Assessment & Plan (11/21/2024 7:05 PM EST): Pt with complicated hx and difficulty with out patient compliance Meds reconciled with [facility] discharge documents and refilled Pt prefers to seek care at [facility] today for ongoing cardiac issues Endocarditis 10/17/2024 [...] he gets home to be transported to [facility] for stitching as he did not want to be transported directly from the clinic Hx of pulmonary embolus 04/18/2023 Overview (04/18/2023): Treating w/ Xarelto 20 mg daily while at [facility] 03/16/23-04/15/23 (anticipated discharge date) Anemia, chronic disease 10/09/2022 Symptomatic anemia 10/09/2022 Overview (10/09/2022): Acute anemia related to tooth extractions on 10/01/22 while still on xarelto for anticoagulation. Taken to [place] ED, bleeding gums, not able to stop with pressure Hemoglobin 3 Received 1 prbc transfusion Transferred to [facility] for admission on 10/02/22. Received another transfusion Discharged 10/06/22 Ascites 07/21/2022 Bacteremia 07/21/2022 Overview (04/18/2023): Recurrent bacteremia and endocarditis found 03/04/23. Admitted. Left AMA on 03/14/23 Returned 03/15/23. Admitted again with plan to transfer to [facility], [facility], to continue antibiotics until 04/15 to finish [...] Heroin dependence 06/27/2022 Overview (08/23/2024): Admitted to [facility] for rehab Treated w/ Methadone 40 mg at [facility] 03/16/23-04/15/23 -[facility] 08/23/24 Assessment & Plan (08/23/2024 2:45 PM EST): Admitted to [facility] for re[facility] Treated w/ Methadone 40 mg at [facility] 03/16/23-04/15/23 -referred to [facility] [...] 2020 Overview (10/09/2022): 07/16/22 - Presented to [facility] ED with hypotension, found to be in septic shock 07/20/22 - Left hospital AMA before completing IV antibiotics. Blood cultures positive for GBS and required pressor support when he arrived. 07/21/22 - Mother took Pt to [facility] ED since he left [facility] AM. 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 I will place a referral to our [facility] hep c team. Encounters * This document contains information received from the source organization and may not represent a complete record from that organization. Date Type Department Care Team Description 01/25/2025 Patient Outreach [facility] [address] [place] [address] Alba So NP 01/24/[address] [address] Anastacio Braxton [place] chartprep 01/24/2025 Patient Outreach [address] [address] Alba So NP 01/23/2025 Patient Outreach [address] [address] Alba So NP Care Coordination (CHW outreach for SDOH PT-1 and food needs-LVM ) 01/19/2025 Patient Outreach [address] [address] Alba So NP Transition Of Care (Tcm) (HDF scheduled and SDOH screening positive and Tobacco screening positive) 01/17/2025 Patient Outreach [address] [address] Alba So NP Care Coordination (Outreach) 01/16/2025 Patient Outreach [address] [address] Alba So NP Transition Of Care (Tcm) (HDF unscheduled) 01/11/2025 Patient Outreach [address] [address] Alba So NP Care Coordination (Outreach) 01/11/2025 Patient Outreach [address] [address] Alba So NP Care Coordination (C3/CM Chart Review) 01/11/2025 Patient Outreach [facility] [address] [place] [address] Alba So NP Care Coordination (C3CM Chart review) 01/11/2025 Patient Outreach [address] [address] Alba So NP 12/30/2024 Population Health Risk Score [facility] Department [address] [place] [phone] Provider, Population Health Generic 12/25/2024 Orders Only GENERIC EXTERNAL DATA DEPARTMENT Provider, Generic External Data 12/22/2024 Telephone [facility] [address] [place] [address] Alba So NP 12/21/2024 Orders Only [address] [address] Alba So NP 12/20/[address] [address] Beth Fong, NABEEL 12/20/2024 Patient Outreach [address] [address] Alba So NP Transition Of Care (Tcm) 12/19/2024 Refill [facility] [address] [address] Astrid Becker NP History of artificial heart valve 12/08/2024 Orders Only GENERIC EXTERNAL DATA DEPARTMENT Provider, Generic External Data 11/22/2024 Patient Outreach [address] [address] Alba So NP Transition Of Care (Tcm) 11/21/2024 4:00 PM EST Office Visit [facility] [address] [address] Astrid Becker NP History of artificial heart valve (Primary Dx); Mild intermittent asthma, unspecified whether complicated; Endocarditis of tricuspid valve; Cellulitis of left lower extremity; Drug abuse, IV ([facility]) 11/21/2024 Patient Outreach [address] [address] Alba So NP Transition Of Care (Tcm) 11/18/2024 Patient Outreach [address] [address] Alba So NP Transition Of Care (Tcm) (HDF- Unscheduled (denied)) 11/11/2024 Patient Outreach [address] [address] Alba So NP Transition Of Care (Tcm) [...] with others, in a hotel, in a care home, living outside on the street, on a [...] Vaccine (#1) 2024 , 07/27/2020 Depression Monitoring 04/17/2025 10/18/2024 , 10/18/2024 Alcohol/Substance Use Screening 10/18/2025 10/18/2024 Depression [...] EDT Narrative 12/25/2024 3:59 PM EDT ? [facility] ?[address] ?[place] [address] ? CT Scan Report ? Signed ? Patient: Norberto Marquez ?MR#: [id number] ? : 1990 ?Acct:[id number] ? Age/Sex: 34 / M ?ADM Date: 12/25/24 ? Loc: HO.ED ? Attending Dr: ? Ordering Physician: Fartun Farris ?? Date of Service: 12/25/24 ?? Procedure(s): CT angio chest PE protocol ?? Accession Number(s): [id number] ? cc: Alba So; Fartun Farris ? Report Number: ?? [id number]: Total DLP = ??181.00 mGy-cm ? CLINICAL HISTORY: sob, cp ? CT angiography chest with contrast. 3D Postprocessing. ? Comparison: CT/DE - CT ANGIO CHEST PE PROTOCOL - [...] DD/ 1557 ? TD/TT: 12/25/24 1557 ? Cycle Consultant: ? Procedure Note Donchauter, Image - 12/25/[address] [place] [address] [address] Scan Report Signed Patient: Zully Marquez#: [id number] : 1990Acct:[id number] Age/Sex: 34 / MADM Date: 12/25/24 Loc: HO.ED Attending Dr: Ordering Physician: Fartun Farris Date of Service: 12/25/24 Procedure(s): CT angio chest PE protocol Accession Number(s): [id number] cc: Alba So; Fartun Farris Report Number: [id number]: Total DLP = 181.00 mGy-cm CLINICAL HISTORY: sob, cp CT angiography chest with contrast. 3D Postprocessing. Comparison: CT/DE - CT ANGIO CHEST PE PROTOCOL - [...] Pacheco MD in OV> 12/25/24 1559 DD/ 155 TD/TT: 12/25/241556 Cycle Consultant: [facility] External Provider IMG CT PROCEDURES Edited Result - Final * High Sensitivity Troponin I (12/25/2024 2:10 PM EDT) Only the most recent of3 resultswithin the time period is included. [facility] TROPONIN I HIGH SENSITIVITY 5.7 <3.5 - 35.0 ng/L [facility] Comment:The Coley high sens itivity Troponin-I results should beused in conjunction with other diagnostic information suchas ECG, clinical observations and information, and patientsymptoms to aid in the diagnosis of PR. 12/25/2024 2:10 PM EDT 12/25/2024 2:12 PM EDT Generic External Data Provider LAB BLOOD ORDERAB LES Final Result [facility] [address] [place] [phone] * (ABNORMAL) VENOUS BLOOD GAS (12/25/2024 9:50 AM EDT) [facility] VBG pH 7.40 7.32 - 7.43 [facility] Comment:METER #: [id number] additional_comment: [facility] VBG PCO2 29 mmHg [facility] Comment:METER #: [id number] additional_comment: [facility] VBG PO2 64 mmHg [facility] Comment:METER #: [id number] additional_comment: [facility] VBG Base Excess -5.1 mmol/L [facility] Comment:METER #: [id number] additional_comment: [facility] VBG HCO3 18(L) 22 - 26 mmol/L [facility] Comment:METER #: [id number] additional_comment: [facility] O2 Sat, Bry 91.0 % [facility] Comment:METER #: [id number] additional_comment: [facility] 12/25/2024 9:50 AM EDT 12/25/2024 9:53 AM EDT us Generic External Data Provider LAB BLOOD ORDERAB LES Final Result Performing Organization Address City/[facility] Co de Phone Number [facility] [address] [place] [phone] * Ethanol (12/25/2024 9:41 AM EDT) ETHANOL (MG/DL) IN SER/PLAS <10 mg/dL [facility] Comment:Serum/plasma ethanol results are to be used formedical/treatment purposes only. 12/25/2024 9:41 AM EDT 12/25/2024 10:02 AM EDT us Generic External Data Provider LAB BLOOD ORDERAB LES Final Result Performing Organization Address [facility] Co de Phone Number [facility] [address] [place] [phone] * Magnesium (12/25/2024 9:41 AM EDT) Magnesium 1.8 1.6 - 2.6 mg/dL [facility] 12/25/2024 9:41 AM EDT 12/25/2024 10:02 AM EDT us Generic External Data Provider LAB BLOOD ORDERAB LES Final Result Performing Organization Address [facility] Co de Phone Number [facility] [address] [place] [phone] * Lactic Acid (12/25/2024 9:41 AM EDT) Only the most recent of2 resultswithin the time period is included. Lactic Acid 1.4 0.5 - 2.0 mmol/L [facility] 12/25/2024 9:41 AM EDT 12/25/2024 9:47 AM EDT us Generic External Data Provider LAB BLOOD ORDERAB LES Final Result [facility] [address] [place] [phone] * (ABNORMAL) Comprehensive Metabolic Panel (12/25/2024 9:41 AM EDT) Only the most recent of2 resultswithin the time period is included. Sodium 140 135 - 145 mmol/L [facility] Potassium 3.8 3.3 - 5.1 mmol/L [facility] Chloride 114(H) 96 - 108 mmol/L [facility] Carbon Dioxide 17(L) 22 - 29 mmol/L [facility] Anion Gap 13 12 - 20 [facility] Urea Nitrogen (BUN) 21(H) 9 - 16 mg/dL [facility] Creatinine, Serum 0.76 0.5 - 1.4 mg/dL [facility] Creatinine Clr Calc Pharmacy 112.0 [facility] Comment:eGFR (calculated fro m the MDRD study equation) and eCrCl(calculated from the Cockcroft-Gault equation) are based ondifferent parameters and may not yield comparable results.If eCrCl result is absurd, please check patient'sheight/weight. Estimated Glomerular Filt Rate >60 [facility] Comment:Chronic Kidney Disea se: Estimated GFR < 60 mL/min/1.18s5Vegvey Kidney Disease: Estimated GFR < 15 mL/min/1.73m2 Glucose 75 60 - 115 mg/dL [facility] Calcium 8.9 8.4 - 10.2 mg/dL [facility] Bilirubin, Total 1.2(H) 0.0 - 1.0 mg/dL [facility] Aspartate Amino Transferase 107(H) 5 - 37 U/L [facility] Alanine Aminotransferase 51(H) 0 - 40 U/L [facility] Total Protein 7.9 6.5 - 8.0 g/dL [facility] Albumin Level 3.6 3.5 - 5.0 g/dL [facility] Alkaline Phosphatase 247(H) 39 - 117 U/L [facility] 12/25/2024 9:41 AM EDT 12/25/2024 10:02 AM EDT Generic External Data Provider LAB BLOOD ORDERAB LES Final Result Performing Organization Address [facility] de Phone Number [facility] [address] [place] [phone] * D Dimer High Sensitivity (12/25/2024 9:40 AM EDT) D Dimer High Sensitivity 413 NG/ML [facility] Comment:D-DIMER HS REFERENCE RANGENote: Our [...] ORDERAB LES Final Result Performing Organization Address [facility] Co de Phone Number [facility] [address] [place] [phone] * Blood Culture (First) (12/25/2024 9:40 AM EDT) Blood Venous blood specimen / Unknown 12/25/2024 9:40 AM EDT 12/25/2024 9:47 AM EDT Comment:Blood Narrative [facility] - 12/30/2024 11:47 AM EDT Blood Culture (First) No growth after 5 days. Specimen Source: Blood Generic External Data Provider LAB MICROBIOLOGY - GENERAL ORDERABLES Final Result [facility] [address] [place] [phone] * Blood Culture (Second) (12/25/2024 9:40 AM EDT) Blood Venous blood specimen / Unknown 12/25/2024 9:40 AM EDT 12/25/2024 9:47 AM EDT Comment:Blood Narrative [facility] - 12/30/2024 11:47 AM EDT Blood Culture (Second) No growth after 5 days. Specimen Source: Blood Generic External Data Provider LAB MICROBIOLOGY - GENERAL ORDERABLES Final Result Performing Organization Address [facility]/ZIP Co de Phone Number [facility] [address] [place] [phone] * (ABNORMAL) SARS-CoV-2 RNA, Influenza A/B, and RSV RNA, Ql NAAT (12/25/2024 9:40 AM EDT) Only the most recent of2 resultswithin the time period is included. Influenza A PCR NEGATIVE Negative [facility] Influenza B PCR NEGATIVE Negative [facility] Resp Syncy Virus RNA Qual PCR POSITIVE(A) Negative [facility] SARS COV2 PCR NEGATIVE Negative [facility] Comment:All test results mus t [...] use by authorized laboratories.Testing performed on the Accipiter Radar GeneXpert utilizingreal-time RT-PCR.All SARS CoV2 and positive influenza A/B results arereported to [facility]. 12/25/2024 9:40 AM EDT 12/25/2024 9:47 AM EDT us Generic External Data Provider LAB MICROBIOLOGY - GENERAL ORDERABLES Final Result [facility] [address] [place] [phone] * (ABNORMAL) CBC auto differential (12/25/2024 9:40 AM EDT) Only the most recent of2 resultswithin the time period is included. White Blood Count 10.2 4.8 - 10.8 X10*3/uL [facility] Red Blood Count 4.28(L) 4.60 - 5.80 X10*6/uL [facility] Hemoglobin 8.8(L) 14.0 - 18.0 g/dl [facility] Hematocrit 29.5(L) 42.0 - 52.0 % [facility] Mean Corpuscular Volume 68.9(L) 80.0 - 98.0 fL [facility] Mean Corpuscular Hemoglobin 20.6(L) 27.0 - 33.0 pg [facility] Mean Corpuscular HGB Conc 29.8(L) 31.0 - 36.0 g/dl [facility] Red Cell Distribution Width 22.5(H) 11.0 - 16.0 % [facility] Platelet Count 380 160 - 400 X10*3/uL [facility] Mean Platelet Volume 9.4 9.4 - 12.4 fL [facility] Neutrophils Percent Auto 77.4(H) 45 - 73 % [facility] Imm Gran Pct Auto 0.5(H) 0.0 - 0.4 % [facility] Lymphocytes Percent Auto 11.5(L) 20 - 40 % [facility] Monocytes Percent Auto 9.3 2 - 11 % [facility] Eosinophils Percent Auto 0.6 0 - 4 % [facility] Basophils Percent Auto 0.7 0 - 2 % [facility] NRBC Pct Auto 0.3(H) 0.0 - 0.2 /100WBC [facility] Neutrophils Absolute Auto 7.9 2.0 - 8.3 x10*3/uL [facility] Imm Gran Abs Auto 0.05(H) 0.00 - 0.03 X10*3/uL [facility] Lymphocytes Absolute Auto 1.2 1.2 - 4.9 X10*3/uL [facility] Monocytes Absolute Auto 0.9 0.1 - 1.2 X10*3/uL [facility] Eosinophils Absolute Auto 0.1 0.0 - 0.4 X10*3/uL [facility] Basophils Absolute Auto 0.1 0.0 - 0.2 X10*3/uL [facility] NRBC Abs Auto 0.030(H) 0.0 - 0.012 X10*3/uL [facility] 12/25/2024 9:40 AM EDT 12/25/2024 9:47 AM EDT us Generic External Data Provider LAB BLOOD ORDERAB LES Final Result [facility] [address] [place] [phone] * (ABNORMAL) Prothrombin Time-INR (12/25/2024 9:40 AM EDT) Only the most recent of2 resultswithin the time period is included. Prothrombin Time 21.7(H) 10.9 - 12.4 SEC [facility] INTERNATIONAL NORM RATIO 1.9(H) 0.9 - 1.1 [facility] Comment:INTERNATIONAL NORMAL IZED RATIO (INR) [...] Provider LAB BLOOD ORDERAB LES Final Result [facility] [address] [place] [phone] * (ABNORMAL) Drug Monitoring, Panel 1, Screen, Urine (12/25/2024 12:00 AM EST) Only the most recent of2 resultswithin the time period is included. Opiate Screen Urine Not Detected Not Detect [facility] Comment:Opiate cut-off is 30 0 ng/mL.Positive results are unconfirmed and should not be used fornon-medical purposes. Barbiturates, Urine Not Detected Not Detect [facility] Comment:Barbiturate cut-off is 200 ng/mL.Positive results are unconfirmed and should not be used fornon-medical purposes. Phencyclidine Screen Urine Not Detected Not Detect [facility] Comment:Phencyclidine cut-of f is 25 ng/mL.Positive results are unconfirmed and should not be used fornon-medical purposes. Amphetamine Screen Urine Not Detected Not Detect [facility] Comment:Amphetamine cut-off is 1000 ng/mL.Positive results are unconfirmed and should not be used fornon-medical purposes. Benzodiazepines Screen Urine Not Detected Not Detect [facility] Comment:Benzodiazepine cut-o ff is 200 ng/mL.Positive results are unconfirmed and should not be used fornon-medical purposes. Cocaine Screen Urine POSITIVE(A) Not Detect [facility] Comment:Cocaine cut-off is 3 00 ng/mL.Positive results are unconfirmed and should not be used fornon-medical purposes. Cannabinoid Screen Urine POSITIVE(A) Not Detect [facility] Comment:Cannabinoid cut-off is 50 ng/mL.Positive results are unconfirmed and should not be used fornon-medical purposes. Methadone Screen, Urine Positive(A) Not Detect ng/mL [facility] Comment:Methadone cut-off is 300 ng/mL.Positive results are unconfirmed and should not be used fornon-medical purposes. FENTANYL URINE POSITIVE(A) Not Detect [facility] Comment:Fentanyl cut-off is 1 ng/mL.Positive results are unconfirmed and should not be used fornon-medical purposes. Oxycodone Urine Screen Not Detected Not Detect ng/mL [facility] Comment:Oxycodone cut-off is 100 ng/mL.Positive results are unconfirmed and should not be used fornon-medical purposes. Buprenorphine Screen Not Detected Not Detect ng/mL [facility] Comment:Buprenorphine cut-of f is 5 ng/mL.Positive results are unconfirmed and should not be used fornon-medical purposes. 12/25/2024 12/25/2024 us Generic External Data Provider LAB URINE ORDERAB LES Final Result Performing Organization Address City/State/[facility] Co de Phone Number [facility] [address] [place] [phone] * US Scrotum (11/03/2024 3:30 PM EST) Anatomical Region Laterality Modality Body Ultrasound 11/03/2024 3:30 PM EST Narrative 11/03/2024 3:54 PM EST ? [facility] ?[address] ?[place] [address] ? Ultrasound Report ? Signed ? Patient: Norberto Marquez ?MR#: [id number] ? : 1990 ?Acct:[id number] ? Age/Sex: 34 / M ?ADM Date: 11/03/24 ? Loc: HO.[place] ?MEDSURG-2 ? Attending Dr: Janeen Long MD ? Ordering Physician: Jenelle Meza ?? Date of Service: 11/03/24 ?? Procedure(s): US scrotum ?? Accession Number(s): [id number] ? cc: Jenelle Meza; [facility] ? EXAMINATION: US SCROTUM ? HISTORY: [...] DD/ 1530 ? TD/TT: 11/03/24 1547 ? Cycle Consultant: ? Procedure Note Jonathan Stapleton - 11/03/[address] [address] Ultrasound Report Signed Patient: Zully Marquez#: [id number] : 1990Acct:[id number] Age/Sex: 34 / MADM Date: 11/03/24 [facility]: Janene Long MD Ordering Physician: Jenelle Meza Date of Service: 11/03/24 Procedure(s): US scrotum Accession Number(s): [id number] cc: Jenelle Meza; [facility] EXAMINATION: US SCROTUM HISTORY: Scrotal swelling. [...] 11/03/24 1551 DD/ 1530 TD/TT: 11/03/24 1547 Cycle Consultant: us [facility] External Provider IMG US PROCEDURES Final Result * XR Tibia Fibula 2 Views Left (11/03/2024 10:18 AM EST) Anatomical Region Laterality Modality Lower Extremities, Lower Leg Left Rad iographic Imaging 11/03/2024 10:1 8 AM EST Narrative 11/03/2024 11:08 AM EST ? [facility] ?[address] ?[place] [address] ?XRay Report ? Signed ? Patient: Coriano,Norberto ?MR#: [id number] ? : 1990 ?Acct:[id number] ? Age/Sex: 34 / M ?ADM Date: 11/03/24 ? Loc: HO.ED ? Attending Dr: ? Ordering Physician: Tasneem Rojas NP ?? Date of Service: 11/03/24 ?? Procedure(s): XR tibia fibula LT 2V ?? Accession Number(s): [id number] ? cc: [facility]; Tasneem Rojas NP ? EXAMINATION: ?? [...] DD/ 1018 ? TD/TT: 11/03/24 1056 ? Cycle Consultant: ? Procedure Note Pieter, Image - 11/03/[address] [address] XRay Report Signed Patient: Zully Marquez#: [id number] : 1990Acct:[id number] Age/Sex: 34 / MADM Date: 11/03/24 Loc: HO.ED Attending Dr: Ordering Physician: Tasneem Rojas NP Date of Service: 11/03/24 Procedure(s): XR tibia fibula LT 2V Accession Number(s): [id number] cc: [facility]; Tasneem Rojas NP EXAMINATION: XR TIBIA [...] 11/03/24 1105 DD/ 1018 TD/TT: 11/03/24 1056 Cycle Consultant: us [facility] External Provider IMG XR PROCEDURES Edited Result - Final * Urinalysis w/reflex microscopic (11/03/2024 10:09 AM EST) Color Urine Yellow [facility] Appearance Urine Clear [facility] PH 6.5 5.0 - 9.0 [facility] Glucose Urine UA Negative Negative mg/dL [facility] Urine Blood Negative Negative [facility] Specific [place] - Urine 1.015 1.005 - 1.025 [facility] Urine Protein Negative Neg-Trace mg/dL [facility] Urine Ketones Negative Negative mg/dL [facility] Nitrite Urine Negative Negative [facility] Leukocyte Esterase Urine Negative Negative [facility] 11/03/2024 10:0 9 AM EST 11/03/2024 10:14 AM EST Narrative [facility] - 11/03/2024 10:22 AM EST [id number], [employer] us Generic External Data Provider LAB URINE ORDERAB LES Final Result [facility] [address] [place] [phone] [phone] * US VENOUS DUPLEX LE LT (11/03/2024 10:00 AM EST) Anatomical Region Laterality Modality Abdomen Ultrasound 11/03/2024 10:0 0 AM EST Narrative 11/03/2024 10:40 AM EST ? [facility] ?[address] ?[place] [address] ? Ultrasound Report ? Signed ? Patient: Norberto Marquez ?MR#: [id number] ? : 1990 ?Acct:[id number] ? Age/Sex: 34 / M ?ADM Date: 11/03/24 ? Loc: HO.ED ? Attending Dr: ? Ordering Physician: Tasneem Rojas NP ?? Date of Service: 11/03/24 ?? Procedure(s): US venous duplex LE LT ?? Accession Number(s): [id number] ? cc: [facility]; Tasneem Rojas NP ? EXAMINATION: ?? [...] DD/ 1000 ? TD/TT: 11/03/24 1011 ? Cycle Consultant: ? Procedure Note Jonathan Stapleton - 11/03/2024 [place] [address] Ultrasound Report Signed Patient: Zully Marquez#: [id number] : 1990Acct:[id number] Age/Sex: 34 / MADM Date: 11/03/24 Loc: .ED Attending Dr: Ordering Physician: Tasneem Rojas NP Date of Service: 11/03/24 Procedure(s): US venous duplex LE Accession Number(s): [id number] cc: [facility]; Tasneem Rojas NP EXAMINATION: US DOPPLER [...] 11/03/24 1037 DD/ 1000 TD/TT: 11/03/24 1011 Cycle Consultant: [facility] External Provider IMG US PROCEDURES Edited Result - Final * Sed Rate by Modified Black (11/03/2024 6:29 AM EST) Erythrocyte Sedimentation Rate 8 0 - 15 MM/HR [facility] Comment:Patients with polycy themia and many hemoglobin abnormalitiesmay have depressed sed rates whereas patients with anemiamay have elevated sed rates. 11/03/2024 6:29 AM EST 11/03/2024 9:19 AM EST Generic External Data Provider LAB BLOOD ORDERAB LES Final Result [facility] [address] [place] [phone] * (ABNORMAL) CBC (11/03/2024 6:29 AM EST) White Blood Count 9.5 4.8 - 10.8 X10*3/uL [facility] Red Blood Count 3.65(L) 4.60 - 5.80 X10*6/uL [facility] Hemoglobin 8.4(L) 14.0 - 18.0 g/dl [facility] Hematocrit 28.1(L) 42.0 - 52.0 % [facility] Mean Corpuscular Volume 77.0(L) 80.0 - 98.0 fL [facility] Mean Corpuscular Hemoglobin 23.0(L) 27.0 - 33.0 pg [facility] Mean Corpuscular HGB Conc 29.9(L) 31.0 - 36.0 g/dl [facility] Red Cell Distribution Width 25.4(H) 11.0 - 16.0 % [facility] Platelet Count 328 160 - 400 X10*3/uL [facility] Mean Platelet Volume 9.4 9.4 - 12.4 fL [facility] NRBC Pct Auto 0.0 0.0 - 0.2 /100WBC [facility] NRBC Abs Auto 0.000 0.0 - 0.012 X10*3/uL [facility] 11/03/2024 6:29 AM EST 11/03/2024 6:44 AM EST Generic External Data Provider LAB BLOOD ORDERAB LES Final Result Performing Organization Address City/[facility]/ZIP Co de Phone Number [facility] [address] [place] [phone] * (ABNORMAL) C-reactive Protein (11/03/2024 6:29 AM EST) C Reactive Protein 4.35(H) < or = 0.50 mg/dL [facility] 11/03/2024 6:29 AM EST 11/03/2024 6:44 AM EST Generic External Data Provider LAB BLOOD ORDERAB LES Final Result Performing Organization Address City/[facility]/ZIP Co de Phone Number [facility] [address] [place] [phone] * (ABNORMAL) Basic Metabolic Panel (11/03/2024 6:29 AM EST) Sodium 136 135 - 145 mmol/L [facility] Potassium 4.4 3.3 - 5.1 mmol/L [facility] Chloride 110(H) 96 - 108 mmol/L [facility] Carbon Dioxide 19(L) 22 - 29 mmol/L [facility] Anion Gap 11(L) 12 - 20 [facility] Urea Nitrogen (BUN) 18(H) 9 - 16 mg/dL [facility] Creatinine, Serum 0.74 0.5 - 1.4 mg/dL [facility] Creatinine Clr Calc Pharmacy 128.3 [facility] Comment:eGFR (calculated fro m the MDRD study equation) and eCrCl(calculated from the Cockcroft-Gault equation) are based ondifferent parameters and may not yield comparable results.If eCrCl result is absurd, please check patient'sheight/weight. Estimated Glomerular Filt Rate >60 [facility] Comment:Chronic Kidney Disea se: Estimated GFR < 60 mL/min/1.04z5Hhyjwh Kidney Disease: Estimated GFR < 15 mL/min/1.73m2 Glucose 71 60 - 115 mg/dL [facility] Calcium 8.4 8.4 - 10.2 mg/dL [facility] 11/03/2024 6:29 AM EST 11/03/2024 6:44 AM EST us Generic External Data Provider LAB BLOOD ORDERAB LES Final Result [facility] [address] [place] [phone] * HIV-1/2 Antigen and Antibodies, Fourth Generation, with Reflexes (04/08/2024 11:52 AM EDT) HIV AB/AG Nonreactive Nonreactive [facility] Comment:HIV-1 p24 Ag and/or HIV-1/HIV-2 Ab not detected.A test result that is nonreactive does not exclude thepossibility of exposure to or infection with HIV-1 and/orHIV-2. Nonreactive results in this assay for individualswith prior exposure to HIV-1 and/or HIV-2 may be due toantigen and antibody levels that are below the limit ofdetection of this assay.The [employer] HIV Ag/Ab Combo assay result andsupplemental assay results should be interpreted inconjunction with the patient's clinical presentation,history and other laboratory results. If the results areinconsistent with clinical evidence, additional testing issuggested to confirm the result. Blood Venous blood specimen / Unknown 04/08/2024 11:52 AM EDT 04/08/2024 12:58 PM EDT Alba So POLYMER CHEMIST LAB BLOOD ORDERABLES Final Resu lt [facility] [address] [place] [phone] from Last 3 Months or Most Recently Relevant to Health Maintenance Insurance [facility] C3 HSN FULL Care Teams Target Aircraft Technician Relationship Specialty Start Date End Date Alba So NP [address] [place] [phone] PCP - General Family Medicine 04/14/24
--- OUTSIDE RECORDS SUMMARY | 2025-01-27 14:45 | XMS_ITS | Encounter Summary ---
Author Organization [employer] Address [address] [facility] [address] [place] [address] Care Team Providers Care Photographic Lithographer Name Role Phone Nirali Lott Primary Care Provider [phone] Alba So NP Primary Care Provider [phone] Encounter Details Date Type Department Care Team (Late st Contact Info) Description 10/27/2023 Orders Only [facility] [address] [place] [address] Nirali Lott FNP [address] [place] [address] Infective endocarditis of tricuspid valve (Primary Dx) [...] t he electric, gas, oil or water [employer] threatened to shut off services in your [...] Narrative 11/02/2023 11:06 AM EST ? [facility] ?[address] ?[place] [address] ? CT Scan Report ? Signed ? Patient: Norberto Marquez ?MR#: [id number] ? : 1990 ?Acct:[id number] ? Age/Sex: 33 / M ?ADM Date: 10/27/23 ? Loc: HO.CT ? Attending Dr: Randa Chisholm MD ? Ordering Physician: Randa Chisholm MD ?? Date of Service: 10/27/23 ?? Procedure(s): CT liver 3 phase ?? Accession Number(s): [id number] ? cc: Randa Chisholm MD; [facility] ? EXAMINATION: ?? CT ABDOMEN without [...] 1101 ? DD/ 1635 ? TD/TT: ? Coffee Bar Attendant: SS ? Procedure Note Donotsatnaminterpreter, Image - 11/03/[address] [place] [address] [address] Scan Report Signed Patient: Zully Marquez#: [id number] : 1990Acct:[id number] Age/Sex: 33 / MADM Date: 10/27/23 Loc: HO.CT Attending Dr: Randa Chisholm MD Ordering Physician: Randa Chisholm MD Date of Service: 10/27/23 Procedure(s): CT liver 3 phase Accession Number(s): [id number] cc: Randa Chisholm MD; [facility] EXAMINATION: CT ABDOMEN without and WITH [...] in OV> 11/02/23 1101 DD/ 1635 TD/TT: Coffee Bar Attendant: ELIEZER [facility] External Provider IMG CT PROCEDURES Final Result documented in this encounter Visit Diagnoses Diagnosis Infective endocarditis of tricuspid valve- Primary documented in this encounter Additional Health Concerns Assessment Noted Time PHQ-9 Depression Total Score: 0 06/03/20 23 10:05 AM EDT documented as of this encounter Care Teams Photographic Lithographer Relationship Specialty Start Date End Date Nirali Lott FNP [address] [place] [phone] PCP - General Family Medicine 07/09/23 04/13/24 Alba So NP [address] [place] [address] PCP - General Family Medicine 04/14/24 documented as of this encounter
[2025-01-27 15:10] LABS: Alanine Aminotransferase 23 U/L (0-40); Albumin Level 3.1 g/dL (3.5-5.0); Anion Gap 12 (12-20); Aspartate Amino Transferase 41 U/L (5-37); Bilirubin Total 0.9 mg/dL (0.0-1.0); Blood Urea Nitrogen 15 mg/dL (9-16); Calcium 8.3 mg/dL (8.4-10.2); Carbon Dioxide 22 mmol/L (22-29); Chloride 109 mmol/L (96-108); Creatinine Clr Calc Pharmacy 118.1; Estimated Glomerular Filt Rate > 60; Glucose Random 93 mg/dL (60-115); Potassium 4.5 mmol/L (3.3-5.1); Sodium 138 mmol/L (135-145); Total Protein 6.7 g/dL (6.5-8.0)
[2025-01-27 15:23] LABS: Alkaline Phosphatase 205 U/L (39-117)
--- NOTE | 2025-01-27 16:14 | PC.NURSE ---
Pt refusing vitals/labs.
[2025-01-27 17:22] VITALS: BP 0/0; PULSE 0; RESP 0; TEMP -17.7; TEMP 0; O2SAT 0
== END 2025-01-27 17:23 | disposition home or self-care (01) ==
PROVIDERS: Nurse Practitioner Family; Emergency Provider Emergency Medicine Emergency Medical Services
DX: S81.812A Laceration without foreign body, left lower leg, initial encounter (principal); F17.210 Nicotine dependence, cigarettes, uncomplicated; X58.XXXA Exposure to other specified factors, initial encounter; Y93.9 Activity, unspecified; Y92.9 Unspecified place or not applicable; Y99.8 Other external cause status; Z48.00 Encounter for change or removal of nonsurgical wound dressing; Z79.899 Other long term (current) drug therapy
CPT/HCPCS: 36415; 80053; 85025; 99283; 99284

== ENCOUNTER 2025-02-03 15:17 | Outpatient (RCR) | payer MEDICAID, SELFPAY | END 2025-03-02 16:36 | disposition home or self-care (01) | LOC: HO.WCC 15:17 | DX: I83.228 Varicose veins of left lower extremity with both ulcer of other part of lower extremity and inflammation (principal); L97.822 Non-pressure chronic ulcer of other part of left lower leg with fat layer exposed; I10 Essential (primary) hypertension; F17.210 Nicotine dependence, cigarettes, uncomplicated; F19.10 Other psychoactive substance abuse, uncomplicated; B19.20 Unspecified viral hepatitis C without hepatic coma; Z79.01 Long term (current) use of anticoagulants; Z79.2 Long term (current) use of antibiotics; Z79.899 Other long term (current) drug therapy; Z86.718 Personal history of other venous thrombosis and embolism | CPT/HCPCS: 11042; 11045; 97597; 99213 ==

== ENCOUNTER 2025-02-07 08:34 | Inpatient (IN) | payer MEDICAID, SELFPAY ==
[2025-02-07] VITALS (9 sets, daily range): BP systolic 90–137; BP diastolic 53–86; PULSE 76–103; RESP 11–20; TEMP 36.3–36.8; O2SAT 92–100; BMI 21.2; BMI 21.6
--- NOTE | ~2025-02-07 | US_ITS ---
EXAMINATION: US ABDOMEN LIMITED CLINICAL INFORMATION: Ascites.. COMPARISON: None available. TECHNIQUE: Real-time imaging of the right upper quadrant abdominal viscera. Mild to moderate ascites noted most localized the right lower quadrant. Initially patient refused performed ultrasound-guided paracentesis. After coaxing the patient and explaining the benefits, patient agreed to to undergo paracentesis. A a written consent was obtained explaining procedure benefits and wrist. Preliminary ultrasound was performed the right lower quadrant and marker placed in the skin. Patient was prepped in usual sterile manner 1% lidocaine was inserted. 8 5 English Yueh catheter was advanced through the skin into the peritoneal space. There is continuous patient motion and abdominal tenting and yelling during exam. No fluid could be obtained. Exam was terminated. FINDINGS/ US/US abdomen limited IMPRESSION: Unsuccessful ultrasound-guided paracentesis. Electronically signed by: Ganesh Redd MD 02/08/2025 09:37 AM EDT
--- NOTE | ~2025-02-07 | CT_ITS ---
EXAMINATION: CT ABDOMEN AND PELVIS WITH CONTRAST CLINICAL INFORMATION: Abdominal distention. COMPARISON: September 13, 2024. TECHNIQUE: Multidetector volumetric images were obtained from the superior aspect of the liver through the pubic symphysis following administration 85 mL of Omnipaque 350 intravenous contrast. Sagittal and coronal reformatted images were obtained on the technologist's workstation. Oral contrast: No This CT examination was performed using dose optimization techniques as appropriate, variously including the following: *Automated exposure control *Adjustment of mA and/or kV according to patient size (this includes techniques or standardized protocols for targeted exams where dose is matched to indication/reason for exam; i.e. extremities or head) *Use of iterative reconstruction technique DLP: 628 mGy centimeter. FINDINGS: LUNG BASES: Pulmonary patchy groundglass. 6 mm noncalcified nodule left lung base, nonspecific. LIVER, GALLBLADDER, AND BILIARY TREE: Liver measures 17 cm. Nodular surface. Heterogeneous enhancement with trace of fluid throughout the gregory triads. Main portal vein and main hepatic veins are patent. No pericholecystic fluid collection or gallbladder wall thickening. PANCREAS: No focal lesion. No peripancreatic fluid collection. No main pancreatic ductal dilatation. SPLEEN: 11 cm. No focal lesion. ADRENAL GLANDS: No nodular lesion. KIDNEYS AND URETERS: No hydronephrosis. No gross nephrolithiasis. Normal enhancement pattern of the renal parenchyma. BLADDER: Fluid-filled. GASTROINTESTINAL TRACT: Sutures in the cecum likely related to prior appendectomy. Abundant stool within the large intestine. Segmental areas of wall thickening involving the jejunal loops. No intestinal obstruction pattern. No pneumatosis intestinalis. No pneumoperitoneum. No peripheral enhancing fluid collection. There is moderate amount of ascites. ABDOMINAL WALL: Small fat-containing fluid umbilical hernia. LYMPH NODES: No gross lymphadenopathy, retroperitoneum. VASCULAR: No aneurysm or dissection, abdominal aorta. Calcified plaques in the coronary arteries. Calcifications in the tricuspid valve. Heart is enlarged. Mildly prominent although nondistended umbilical vein. Mixed plaques in the abdominal aorta wall and iliac arteries. PELVIC VISCERA: I do not see the prostate gland. OSSEOUS STRUCTURES: Sternal wires. No acute fracture or listhesis in the axial skeleton. Sclerosis and the sacroiliac joints. No lytic or blastic lesions. CT/CT abdomen pelvis w IV con IMPRESSION: Moderate amount of ascites. Mild enteritis, degenerative loops. Concerning hepatocellular disease. Cirrhosis cannot be excluded. Cardiomegaly. Coronary artery disease and atherosclerosis disease. Fleischner guidelines were followed. Electronically signed by: Rito Hernandez MD 02/07/2025 11:38 AM EDT
--- NOTE | 2025-02-07 09:05 | ED.ABDPAIN ---
HPI - Abdominal Pain General Chief Complaint: Abdominal Pain Stated Complaint: ABD PAIN/DISTENTION PER EMS Time Seen by Provider: 02/07/25 09:04 Source: patient Mode of arrival: ambulatory Limitations: no limitations History of Present Illness ED Provider: Alana Carreon PA-C HPI narrative: This is a 34-year-old male, with a past medical history of polysubstance use disorder and multiple complications related to his substance use disorder including valvular heart disease, history of bioprosthetic tricuspid valve that was placed in his 2020 because of severe tricuspid regurg in the setting of MSSA endocarditis. He also has a history of rhabdomyolysis, LUCERO, anasarca, and hepatitis-C. Nursing note, patient reports last movement was on February 06. Also significant PMHx as follows: septic pulmonary emboli and empyema, hx of DVT and PE noncompliant with Xarelto, cardiomyopathy, recurrent bacteremia and endocarditis, untreated chronic hepatitis-C, anemia, and cirrhosis Patient reports that this morning he awoke with severe abdominal pain which is constant. Patient was a poor historian and appears to be clinically under the influence. He was moaning, holding his abdomen. Per nursing an EMS, patient went to the methadone clinic and then went to a walk-in clinic to be medically evaluated due to generalized abdominal pain. EMS was called due to abdominal pain and was brought here for further evaluation. MD elicited complaint: abdominal pain Quality: sharp Migration to: no migration Exacerbating factors: nothing Relieving factors: nothing Associated symptoms: nausea Related Data Home Medications ?Medication ?Instructions ?Recorded ?Confirmed hydroxyzine HCl 50 mg tablet 50 mg PO TID PRN Anxiety 03/30/24 11/03/24 methadone 10 mg/mL oral 105 mg PO DAILY 09/13/24 12/25/24 concentrate (Methadone Intensol) ferrous sulfate 325 mg (65 mg 325 mg PO DAILY 10/10/24 11/03/24 iron) tablet,delayed release magnesium oxide 400 mg PO DAILY 10/10/24 11/03/24 silver sulfadiazine 1 % topical 1 appl topical Q OTHER DAY 10/10/24 11/03/24 cream thiamine HCl (vitamin B1) 100 mg 100 mg PO DAILY 10/10/24 11/03/24 tablet (Vitamin B-1) rivaroxaban 20 mg tablet (Xarelto) 20 mg PO DAILY@1700 10/14/24 11/03/24 albuterol sulfate 90 mcg/actuation 2 inh inhalation Q4-6H PRN wheezing 02/07/25 breath activated powder inhaler (ProAir RespiClick) apixaban 5 mg tablet (Eliquis) 5 mg PO BID 02/07/25 midodrine 2.5 mg tablet 2.5 mg PO TID 02/07/25 02/07/25 Previous Rx's ?Medication ?Instructions ?Recorded doxycycline monohydrate 100 mg 100 mg PO Q12H #8 caps 11/04/24 capsule rivaroxaban 20 mg tablet 20 mg PO DAILY #30 tabs 12/09/24 albuterol sulfate 90 mcg/actuation 2 inh inhalation Q4-6H PRN 12/25/24 breath activated powder inhaler shortness of breath or wheezing #1 ea doxycycline hyclate 100 mg capsule 100 mg PO BID 10 days #20 caps 12/25/24 naloxone 4 mg/actuation nasal 4 mg intranasal Q2M PRN opioid 12/25/24 spray (Narcan) overdose #2 ea cephalexin 500 mg capsule 500 mg PO QID 7 days #28 caps 01/27/25 Allergies Allergy/AdvReac Type Severity Reaction Status Date / Time No Known Allergies Allergy Verified 02/07/25 08:45 [No Known Allergies*] Review of Systems Review of Systems Yes all other systems are reviewed and are negative Constitutional: Reports as per [facility] Past Medical History Medical History Rhabdomyolysis Anemia LUCERO (acute kidney injury) Polysubstance abuse Opioid use disorder Opioid use disorder, severe, dependence Substance abuse MSSA bacteremia Bacteremia Bacteremia Right heart failure Steatosis, liver Tricuspid valve stenosis Anasarca HCV (hepatitis C virus) Endocarditis Pulmonary embolism Surgical History History of tricuspid valve replacement with bioprosthetic valve Social History Social History Household Members: Other Household Members Other:: skilled nursing Housing: Homeless Do you presently have visiting nurse or other home services: No Unable to assess alcohol history related to: Unknown Alcohol intake: never Patient Tobacco Use Status: Current everyday Tobacco user Tobacco use type: Cigarette Cigarette Packs Per Day: 1 Cigarettes Per Day: 10 Years Smoked: 10 Smoked in Last 30 Days: Yes Second Hand Smoke Exposure: No Use of substances other than those prescribed or required for medical reasons: Yes Substance Use Type: Methamphetamine Substance Use Frequency: Chronic Longstanding Last Used Substance: Hours (ago) Any prior treatment program specific to substance use: Yes Advance Directives: Yes Advance Directives on File: Yes Advance Directives Date on File: 04/16/21 Do you have a plan to hurt others: No Plan Nutrition Risks: No Nutritional Risk service: No Current occupational status: unemployed Physical Exam ED Vital Signs: Vital Signs - 24 hr 02/07/25 08:39 02/07/25 10:42 02/07/25 11:51 Temperature 97.6 F 97.8 F Pulse Rate 103 H 89 89 Respiratory Rate 20 18 18 Blood Pressure 137/81 118/79 115/86 Pulse Oximetry 96 94 95 Oxygen Delivery Method Room Air Room Air Room Air Oxygen Flow Rate 02/07/25 13:15 02/07/25 13:55 02/07/25 15:08 Temperature 97.6 F 97.8 F 97.9 F Pulse Rate 76 86 85 Respiratory Rate 12 12 11 L Blood Pressure 99/63 99/62 99/59 L Pulse Oximetry 94 93 100 Oxygen Delivery Method Room Air Room Air Room Air Oxygen Flow Rate 93 02/07/25 16:53 Temperature 98.3 F Pulse Rate 83 Respiratory Rate 12 Blood Pressure 90/53 L Pulse Oximetry 95 Oxygen Delivery Method Room Air Oxygen Flow Rate BMI result Body Mass Index 21.2 Const Other: Patient appears to be under the influence, difficult to obtain information. General: Physically active Nutritional Appearance: thin Orientation/consciousness: patient oriented x3 Limitations: no limitations [facility] Head: Yes normal to inspection, Yes normocephalic and Yes atraumatic Ears: hearing grossly normal bilaterally General nose exam: Normal external nose present Face and sinus: Yes normal facial exam Mouth: Normal oral and palatal mucosa present, oropharynx normal and moist mucous membranes Throat: Yes posterior oropharynx normal Eyes General: appearance normal, both eyes and all related structures Eyelids: Yes eyelids normal Conjunctivae: conjunctivae normal Sclerae: sclerae normal Pupils: Equal, round and reactive pupils present EOM: EOMs intact bilaterally Neck Neck: Yes normal visual inspection, Yes full ROM and Yes no lymphadenopathy Lymphatic: no lymphadenopathy noted Chest Chest palpation & inspection: normal inspection of the chest Resp Effort & Inspection: normal respiratory effort and able to speak in complete sentences Auscultation: clear to auscultation bilaterally, no crackles, no rales, no rhonchi and no wheezes Cardio Rate: regular rate Rhythm: regular rhythm Heart sounds: S1 normal heart sound present and S2 normal heart sound present GI Other: Abdomen is distended however soft, diffusely tender throughout. Inspection: Yes distended Palpation (GI): Soft to palpation, Tenderness to palpation present (GI) and Guarding due to palpation present (GI) Percussion: Yes Fluid wave present Auscultation: Hypoactive bowel sounds present Skin General skin exam: no rashes or lesions noted Trauma: no lacerations or abrasions Wounds: no wounds Neuro General: patient oriented x3 and moves all extremities Cranial nerves: Yes Equal, round and reactive pupils present Extrem General: Yes normal to inspection Right upper extremity: normal to inspection Left upper extremity: normal to inspection Right lower extremity: normal to inspection Left lower extremity: normal to inspection Course Reevaluation(s) Reevaluation #1: Labs returned, he has leukocytosis at 11.4, with a microcytic anemia with an H&H of 9/32.4, chemistry revealing elevated BUN, normal creatinine, T bili 1.3, D bili .7, AST elevated at 52. Time: 12:12 Reevaluation #2: CT scan returns revealing a moderate amount of ascites, mild enteritis, concerning for hepatocellular disease, cirrhosis can not be excluded, as well as cardiomegaly. I discussed this case with my attending physician, Dr. Mcgovern. Given current presentation, patient needs to have paracentesis to rule out SBP. Will order PT INR and 2nd troponin. We will continue to closely monitor. He was resting comfortably Time: 13:12 Reevaluation #3: Set up for paracentesis, we examined the abdomen with ultrasound, patient was placed in reverse Trendelenburg, abdomen is soft and appears distended. There is a mild amount of fluid noted on the right mid quadrant however this is too close to the liver order therefore paracentesis should be performed by Interventional Radiology. Reached out to Interventional Radiology Time: 14:51 Additional Reevaluation(s): They are unable to accommodate ultrasound guided paracentesis scheduled for today. Discussed with my attending, Dr. Mcgovern, recommending admission for abdominal pain needing paracentesis for evaluation of possible early bacterial peritonitis. Transfer of care initiated Medical Decision Making Medical Decision Making [facility] Narrative: This is a 34-year-old male, with a history of polysubstance abuse, and multiple complications due to polysubstance use, who presents emergency department with concerns for abdominal pain since this morning. He was brought in via EMS as he reported to a urgent care with abdominal pain. On arrival, patient holding abdomen which appears to be distended, it is soft, however tender throughout. It was difficult to get a history from patient as he appears to be under the influence. Vital signs reveal normotensive, slightly tachycardic at 103bpm he is afebrile, oxygen saturation 96% on room air. He is maintaining an airway. We will continue to closely monitor. Differential diagnoses include anasarca, small bowel obstruction, diverticulitis, bowel perforation. Plan: Labs, EKG, CT abdomen and pelvis, antibiotics, antiemetics Differential Diagnosis Differential Diagnoses: The differential diagnosis associated with the presentation includes See above Admission/Observation Consideration of admission/observation: Escalation of care including admission/observation considered Patient requiring admission secondary to needing paracentesis for evaluation of possible early SBP Consult Healthcare Provider Management of the patient was discussed with: Hospitalist Dr. Huitron, hospitalist Lab Data [facility] Lab Attestation statement: I reviewed the patient's lab results. See course comment 02/07/25 09:33 02/07/25 09:34 Labs: Lab Results 02/07/25 02/07/25 02/07/25 Range/Units 09:33 09:34 09:39 WBC 11.4 H (4.8-10.8) X10*3/uL RBC 4.72 (4.60-5.80) X10*6/uL Hgb 9.0 L (14.0-18.0) g/dl Hct 32.4 L (42.0-52.0) % MCV 68.6 L (80.0-98.0) fL MCH 19.1 L (27.0-33.0) pg MCHC 27.8 L (31.0-36.0) g/dl RDW 20.8 H (11.0-16.0) % Plt Count 321 (160-400) X10*3/uL MPV 9.3 L (9.4-12.4) fL Immature Gran % (Auto) 0.5 H (0.0-0.4) % Neut % (Auto) 78.6 H (45-73) % Lymph % (Auto) 9.9 L (20-40) % Wilkin % (Auto) 9.9 (2-11) % Eos % (Auto) 0.6 (0-4) % Baso % (Auto) 0.5 (0-2) % Lymph # (Auto) 1.1 L (1.2-4.9) X10*3/uL Wilkin # (Auto) 1.1 (0.1-1.2) X10*3/uL Eos # (Auto) 0.1 (0.0-0.4) X10*3/uL Baso # (Auto) 0.1 (0.0-0.2) X10*3/uL Abs Immat Gran (auto) 0.06 H (0.00-0.03) X10*3/uL Absolute Neuts (auto) 8.9 H (2.0-8.3) x10*3/uL Absolute Nucleated RBC 0.000 (0.0-0.012) X10*3/uL Nucleated RBC % (auto) 0.0 (0.0-0.2) /100WBC PT (10.9-12.4) SEC INR (0.9-1.1) VBG pH (7.32-7.43) VBG pCO2 mmHg VBG pO2 mmHg VBG HCO3 (22-26) mmol/L VBG O2 Saturation % VBG Base Excess mmol/L Sodium 138 (135-145) mmol/L Potassium 4.2 (3.3-5.1) mmol/L Chloride 110 H (96-108) mmol/L Carbon Dioxide 22 (22-29) mmol/L Anion Gap 10 L (12-20) BUN 20 H (9-16) mg/dL Creatinine 0.78 (0.5-1.4) mg/dL Estim Creat Clear Calc 117.0 Estimated GFR > 60 Random Glucose 82 (60-115) mg/dL Lactic Acid 1.0 (0.5-2.0) mmol/L Calcium 8.3 L (8.4-10.2) mg/dL Magnesium 1.6 (1.6-2.6) mg/dL Total Bilirubin 1.3 H (0.0-1.0) mg/dL Direct Bilirubin 0.7 H (0.0-0.5) mg/dL AST 52 H (5-37) U/L ALT 25 (0-40) U/L Alkaline Phosphatase 197 H (39-117) U/L Ammonia 54 (13-55) umol/L Total Creatine Kinase 146 (38-174) U/L Troponin I High Sens 5.3 (<3.5-35.0) ng/L B-Natriuretic Peptide 449 H (<100) pg/mL Total Protein 6.8 (6.5-8.0) g/dL Albumin 3.3 L (3.5-5.0) g/dL Lipase 8 (8-78) U/L Urine Color Urine Appearance Urine pH (5.0-9.0) Ur Specific [place] (1.005-1.025) Urine Protein (Neg-Trace) mg/dL Urine Glucose (UA) (Negative) mg/dL Urine Ketones (Negative) mg/dL Urine Blood (Negative) Urine Nitrite (Negative) Ur Leukocyte Esterase (Negative) Urine RBC (0-2) /HPF Urine WBC (0-5) /HPF Ur Squamous Epith Cells (0-2) /HPF Urine Bacteria (None Seen) Hyaline Casts (0-2) /LPF Salicylates < 5.0 L (15-30) mg/dL Urine Opiates Screen (Not Detect) Ur Buprenorphine Scrn (Not Detect) ng/mL Ur Oxycodone Screen (Not Detect) ng/mL Urine Methadone Screen (Not Detect) ng/mL Urine Fentanyl Screen (Not Detect) Acetaminophen < 3 (<30) mcg/mL Ur Barbiturates Screen (Not Detect) Ur Phencyclidine Scrn (Not Detect) Ur Amphetamines Screen (Not Detect) U Benzodiazepines Scrn (Not Detect) Urine Cocaine Screen (Not Detect) U Marijuana (THC) Screen (Not Detect) Ethyl Alcohol < 10 mg/dL 02/07/25 02/07/25 02/07/25 Range/Units 09:45 13:28 14:10 WBC (4.8-10.8) X10*3/uL RBC (4.60-5.80) X10*6/uL Hgb (14.0-18.0) g/dl Hct (42.0-52.0) % MCV (80.0-98.0) fL MCH (27.0-33.0) pg MCHC (31.0-36.0) g/dl RDW (11.0-16.0) % Plt Count (160-400) X10*3/uL MPV (9.4-12.4) fL Immature Gran % (Auto) (0.0-0.4) % Neut % (Auto) (45-73) % Lymph % (Auto) (20-40) % Wilkin % (Auto) (2-11) % Eos % (Auto) (0-4) % Baso % (Auto) (0-2) % Lymph # (Auto) (1.2-4.9) X10*3/uL [place]kin # (Auto) (0.1-1.2) X10*3/uL Eos # (Auto) (0.0-0.4) X10*3/uL Baso # (Auto) (0.0-0.2) X10*3/uL Abs Immat Gran (auto) (0.00-0.03) X10*3/uL Absolute Neuts (auto) (2.0-8.3) x10*3/uL Absolute Nucleated RBC (0.0-0.012) X10*3/uL Nucleated RBC % (auto) (0.0-0.2) /100WBC PT 22.5 H D (10.9-12.4) SEC INR 1.9 H (0.9-1.1) VBG pH 7.30 L (7.32-7.43) VBG pCO2 49 mmHg VBG pO2 35 mmHg VBG HCO3 25 (22-26) mmol/L VBG O2 Saturation 43.0 % VBG Base Excess -1.4 mmol/L Sodium (135-145) mmol/L Potassium (3.3-5.1) mmol/L Chloride (96-108) mmol/L Carbon Dioxide (22-29) mmol/L Anion Gap (12-20) BUN (9-16) mg/dL Creatinine (0.5-1.4) mg/dL Estim Creat Clear Calc Estimated GFR Random Glucose (60-115) mg/dL Lactic Acid (0.5-2.0) mmol/L Calcium (8.4-10.2) mg/dL Magnesium (1.6-2.6) mg/dL Total Bilirubin (0.0-1.0) mg/dL Direct Bilirubin (0.0-0.5) mg/dL AST (5-37) U/L ALT (0-40) U/L Alkaline Phosphatase (39-117) U/L Ammonia (13-55) umol/L Total Creatine Kinase (38-174) U/L Troponin I High Sens 5.1 (<3.5-35.0) ng/L B-Natriuretic Peptide (<100) pg/mL Total Protein (6.5-8.0) g/dL Albumin (3.5-5.0) g/dL Lipase (8-78) U/L Urine Color Yellow Urine Appearance Clear Urine pH 6.0 (5.0-9.0) Ur Specific [place] >= 1.030 H (1.005-1.025) Urine Protein Trace (Neg-Trace) mg/dL Urine Glucose (UA) Negative (Negative) mg/dL Urine Ketones Negative (Negative) mg/dL Urine Blood Small (1+) H (Negative) Urine Nitrite Negative (Negative) Ur Leukocyte Esterase Negative (Negative) Urine RBC 11-20 H (0-2) /HPF Urine WBC 0-5 (0-5) /HPF Ur Squamous Epith Cells 0-2 (0-2) /HPF Urine Bacteria None Seen (None Seen) Hyaline Casts 0-2 (0-2) /LPF Salicylates (15-30) mg/dL Urine Opiates Screen POSITIVE H (Not Detect) Ur Buprenorphine Scrn Not Detected (Not Detect) ng/mL Ur Oxycodone Screen Not Detected (Not Detect) ng/mL Urine Methadone Screen Positive H (Not Detect) ng/mL Urine Fentanyl Screen POSITIVE H (Not Detect) Acetaminophen (<30) mcg/mL Ur Barbiturates Screen Not Detected (Not Detect) Ur Phencyclidine Scrn Not Detected (Not Detect) Ur Amphetamines Screen Not Detected (Not Detect) U Benzodiazepines Scrn Not Detected (Not Detect) Urine Cocaine Screen POSITIVE H (Not Detect) U Marijuana (THC) Screen Not Detected (Not Detect) Ethyl Alcohol mg/dL Independent Interpretation I performed an independent interpretation of an: EKG Interpretation: EKG normal sinus rhythm at a ventricular rate of 98 beats per minute, LA interval 138, QT QTC 384/490 incomplete right bundle-branch similar appearing EKG from previous on December 25, 2024 Radiology Impression Discussion of test interpretation with radiology: I have reviewed the radiologist's reading. Radiologist Impression: CLINICAL INFORMATION: Abdominal distention. COMPARISON: September 13, 2024. TECHNIQUE: Multidetector volumetric images were obtained from the superior aspect of the liver through the pubic symphysis following administration 85 mL of Omnipaque 350 intravenous contrast. Sagittal and coronal reformatted images were obtained on the technologist's workstation. Oral contrast: No This CT examination was performed using dose optimization techniques as appropriate, variously including the following: *Automated exposure control *Adjustment of mA and/or kV according to patient size (this includes techniques or standardized protocols for targeted exams where dose is matched to indication/reason for exam; i.e. extremities or head) *Use of iterative reconstruction technique DLP: 628 mGy centimeter. FINDINGS: LUNG BASES: Pulmonary patchy groundglass. 6 mm noncalcified nodule left lung base, nonspecific. LIVER, GALLBLADDER, AND BILIARY TREE: Liver measures 17 cm. Nodular surface. Heterogeneous enhancement with trace of fluid throughout the gregory triads. Main portal vein and main hepatic veins are patent. No pericholecystic fluid collection or gallbladder wall thickening. PANCREAS: No focal lesion. No peripancreatic fluid collection. No main pancreatic ductal dilatation. SPLEEN: 11 cm. No focal lesion. ADRENAL GLANDS: No nodular lesion. KIDNEYS AND URETERS: No hydronephrosis. No gross nephrolithiasis. Normal enhancement pattern of the renal parenchyma. BLADDER: Fluid-filled. GASTROINTESTINAL TRACT: Sutures in the cecum likely related to prior appendectomy. Abundant stool within the large intestine. Segmental areas of wall thickening involving the jejunal loops. No intestinal obstruction pattern. No pneumatosis intestinalis. No pneumoperitoneum. No peripheral enhancing fluid collection. There is moderate amount of ascites. ABDOMINAL WALL: Small fat-containing fluid umbilical hernia. LYMPH NODES: No gross lymphadenopathy, retroperitoneum. VASCULAR: No aneurysm or dissection, abdominal aorta. Calcified plaques in the coronary arteries. Calcifications in the tricuspid valve. Heart is enlarged. Mildly prominent although nondistended umbilical vein. Mixed plaques in the abdominal aorta wall and iliac arteries. PELVIC VISCERA: I do not see the prostate gland. OSSEOUS STRUCTURES: Sternal wires. No acute fracture or listhesis in the axial skeleton. Sclerosis and the sacroiliac joints. No lytic or blastic lesions. CT/CT abdomen pelvis w IV con IMPRESSION: Moderate amount of ascites. Mild enteritis, degenerative loops. Concerning hepatocellular disease. Cirrhosis cannot be excluded. Cardiomegaly. Coronary artery disease and atherosclerosis disease. Fleischner guidelines were followed. Electronically signed by: Rito Hernandez MD 02/07/2025 11:38 AM EDT Medications Administered Discontinued Medications Generic Name Dose Route Start Last Admin Trade Name Freq PRN Reason Stop Dose Admin Vancomycin HCl 1,500 mg/ 500 mls @ 333.333 mls/hr 02/07/25 09:17 02/07/25 11:52 Sodium Chloride IV 02/07/25 10:46 Infused ONCE ONE Infusion Piperacillin Sod/Tazobactam 50 mls @ 100 mls/hr 02/07/25 09:17 02/07/25 10:33 Sod 3.375 gm/ Sodium Chloride IV 02/07/25 09:46 Infused ONCE ONE Infusion Sodium Chloride 1,896 mls @ 1,896 mls/hr 02/07/25 09:17 02/07/25 11:52 Ns 30 ml/kg infuse over 1 hr (1896 ml) 02/07/25 10:16 Infused IV Infusion .Q1H STA Acetaminophen 1,000 mg in 100 mls @ 400 mls/hr 02/07/25 09:20 02/07/25 10:16 Ofirmev IV 02/07/25 09:34 Infused ONCE ONE Infusion Iohexol 85 ml 02/07/25 11:10 02/07/25 11:10 Iohexol 350 Mg/Ml 75 Ml Infus..Btl IV 02/07/25 11:11 85 ml ONCE ONE Administration Ondansetron HCl 4 mg 02/07/25 09:27 02/07/25 10:02 Ondansetron Hcl 4 Mg/2 Ml Vial IVPUSH 02/07/25 09:28 4 mg ONCE ONE Administration Critical Care Time Critical Care Time Critical Care Time: Yes Total Critical Care Time: 35 Attestation: I have personally provided critical care time exclusive of time spent on separately billable procedures. Time includes review of lab data, radiology results, discussion with consultants, and monitoring for potential decompensation. Intervention performed as documented. Discharge Plan Discharge Clinical Impression: Abdominal pain Patient Disposition: Admitted As Inpatient
--- NOTE | 2025-02-07 09:22 | ECG_ITS ---
Test Reason : abd pain Blood Pressure : */* mmHG Vent. Rate : 98 BPM Atrial Rate : 98 BPM P-R Int : 138 ms QRS Dur : 94 ms QT Int : 384 ms P-R-T Axes : 78 77 10 degrees QTcB Int : 490 ms Normal sinus rhythm Possible Left atrial enlargement Incomplete right bundle branch block Nonspecific T wave abnormality Abnormal ECG When compared with ECG of 25-Dec-2024 08:52, No significant change was found Referred By: Alana Carreon Electronically Signed By: VIOLET SULLIVAN
[2025-02-07 09:45] LABS: MANUAL DIFF FLAG NO
--- NOTE | 2025-02-07 09:45 | PC.NURSE ---
pt BIBA from walk in clinic s/p being dosed at methadone clinic. pt currently c/o generalized non radiating abdominal pain x yesterday. Patient denies any episodes of N/V/D/fevers/chills. Last BM 02/06. hx appendectomy years ago. upon ED arrival - abdomen noted to be distended/rigid/tender w/ palpation. Patient seemingly under the influence as he is difficult to obtain information from. during assessment, pt alert and oriented to self. otherwise seemingly disoriented. personal belongings searched by security d/t pt's current presentation. large amounts of contraband/paraphernalia obtained/discarded by security. belongings otherwise obtained/secured/placed on Selerity shelf #4. pt remains in hospital attire. pt was not placed in ligature free attire as pt denies SI/HI. vss and up to date. nsr on the policy checker. 18gIV placed in the left AC - labs obtained/sent to lab. ekg performed by tech. pt maintaining airway w/o difficulty. in no apparent respiratory distress. no sob/wob noted. respirations even/unlabored. plan of care ongoing. call pierce placed within reach.
[2025-02-07 09:48] LABS: Venous Blood Gas Refer to POC result
[2025-02-07 09:49] LABS: VBG Base Excess -1.4 mmol/L; VBG HCO3 25 mmol/L (22-26); VBG pCO2 49 mmHg; VBG pO2 35 mmHg
[2025-02-07 09:58] LABS: Ammonia 54 umol/L (13-55)
[2025-02-07] MEDS: Acetaminophen 1,000 MG/100 ML PIGGYBACK 400 MG IV (10:01)
[2025-02-07] MEDS: Piperacillin Sodium/Tazobactam 3.375 GM in 0.9 % Sodium Chloride 50 ML IV (10:02)
[2025-02-07] MEDS: ondansetron HCL 4 MG/2 ML VIAL IVPUSH (10:02)
[2025-02-07] MEDS: vancomycin HCL 1,500 MG in 0.9 % Sodium Chloride 500 ML 333.33 MG IV (10:03)
[2025-02-07] MEDS: SODIUM CHLORIDE 1896 ML IV (10:03)
[2025-02-07 10:06] LABS: Alanine Aminotransferase 25 U/L (0-40); Albumin Level 3.3 g/dL (3.5-5.0); Alkaline Phosphatase 197 U/L (39-117); Anion Gap 10 (12-20); Aspartate Amino Transferase 52 U/L (5-37); Bilirubin Direct 0.7 mg/dL (0.0-0.5); Bilirubin Total 1.3 mg/dL (0.0-1.0); Blood Urea Nitrogen 20 mg/dL (9-16); Calcium 8.3 mg/dL (8.4-10.2); Carbon Dioxide 22 mmol/L (22-29); Chloride 110 mmol/L (96-108); Estimated Glomerular Filt Rate > 60; Glucose Random 82 mg/dL (60-115); Lipase 8 U/L (8-78); Magnesium 1.6 mg/dL (1.6-2.6); Potassium 4.2 mmol/L (3.3-5.1); Sodium 138 mmol/L (135-145); Total Protein 6.8 g/dL (6.5-8.0)
[2025-02-07 10:09] LABS: Acetaminophen LAB < 3 mcg/mL (<30); Ethanol < 10 mg/dL; Salicylate < 5.0 mg/dL (15-30)
--- NOTE | 2025-02-07 10:10 | PC.NURSE ---
additional 18gIV placed in the right forearm - IVF/medication administered per provider order. pt waiting for CT to be completed at this time. plan of care ongoing. call pierce placed within reach.
[2025-02-07 10:11] LABS: B Type Natriuretic Peptide 449 pg/mL (<100)
[2025-02-07 10:12] LABS: Troponin-I High Sensitivity 5.3 ng/L (<3.5-35.0)
[2025-02-07 10:17] LABS: Basophils Absolute Auto 0.1 X10*3/uL (0.0-0.2); Basophils Percent Auto 0.5 % (0-2); Eosinophils Absolute Auto 0.1 X10*3/uL (0.0-0.4); Eosinophils Percent Auto 0.6 % (0-4); Hematocrit 32.4 % (42.0-52.0); Imm Gran Abs Auto 0.06 X10*3/uL (0.00-0.03); Imm Gran Pct Auto 0.5 % (0.0-0.4); Lymphocytes Absolute Auto 1.1 X10*3/uL (1.2-4.9); Lymphocytes Percent Auto 9.9 % (20-40); Mean Corpuscular HGB Conc 27.8 g/dl (31.0-36.0); Mean Corpuscular Hemoglobin 19.1 pg (27.0-33.0); Mean Corpuscular Volume 68.6 fL (80.0-98.0); Mean Platelet Volume 9.3 fL (9.4-12.4); Monocytes Absolute Auto 1.1 X10*3/uL (0.1-1.2); Monocytes Percent Auto 9.9 % (2-11); Neutrophils Absolute Auto 8.9 x10*3/uL (2.0-8.3); Neutrophils Percent Auto 78.6 % (45-73); Platelet Count 321 X10*3/uL (160-400); Red Blood Count 4.72 X10*6/uL (4.60-5.80); Red Cell Distribution Width 20.8 % (11.0-16.0); White Blood Count 11.4 X10*3/uL (4.8-10.8)
--- NOTE | 2025-02-07 10:43 | PC.NURSE ---
patient to CT. IVF/abx continues to infuse at this time. plan of care ongoing.
[2025-02-07] MEDS: iohexoL 350 MG/ML 75 ML INFUS..BTL 85 ML IV (11:10)
--- NOTE | 2025-02-07 12:38 | PC.NURSE ---
pt refusing for repeat troponin to be obtained/sent to lab. provider notified/aware.
[2025-02-07 13:51] LABS: INTERNATIONAL NORM RATIO 1.9 (0.9-1.1); Prothrombin Time 22.5 SEC (10.9-12.4)
[2025-02-07 14:02] LABS: Troponin-I High Sensitivity 5.1 ng/L (<3.5-35.0)
--- NOTE | 2025-02-07 14:17 | PC.NURSE ---
urine obtained/sent to lab. pt pending paracentesis to be completed at this time.
[2025-02-07 14:20] LABS: Appearance Urine Clear; Color Urine Yellow; Glucose Urine UA Negative (Negative); Leukocyte Esterase Urine Negative (Negative); Nitrite Urine Negative (Negative); Specific Gravity - Urine >= 1.030 (1.005-1.025); UMIC TRIGGER UACC YES; Urine Blood Small (1+) (Negative); Urine Ketones Negative (Negative); Urine Protein Trace mg/dL (Neg-Trace)
[2025-02-07 14:25] LABS: Bacteria Urine None Seen (None Seen); Hyaline Casts Urine 0-2 /LPF (0-2); Squamous Epithelial Cell Urine 0-2 /HPF (0-2); WBC Urine 0-5 /HPF (0-5)
[2025-02-07 14:32] LABS: Amphetamine Screen Urine Not Detected (Not Detect); Barbiturates, Urine Not Detected (Not Detect); Benzodiazepines Screen Urine Not Detected (Not Detect); Buprenorphine Scr Not Detected (Not Detect); Cannabinoid Screen Urine Not Detected (Not Detect); Cocaine Screen Urine POSITIVE (Not Detect); Fentanyl, urine POSITIVE (Not Detect); Methadone Screen, Urine Positive (Not Detect); Opiate Screen Urine POSITIVE (Not Detect); Oxycodone Screen Urine Not Detected (Not Detect); Phencyclidine Screen Urine Not Detected (Not Detect)
--- NOTE | 2025-02-07 14:59 | PC.NURSE ---
MD/PA unable to complete paracentesis d/t fluid being so close to liver wall. provider now contacting IR. plan of care ongoing.
--- NOTE | 2025-02-07 17:00 | PC.NURSE ---
pt speaking w/ hospitalist at this time. pt notified/aware in regards to being admitted. plan of care ongoing. call pierce placed within reach.
--- NOTE | 2025-02-07 17:27 | PM.IMHP ---
History of Present Illness Date of Service: 02/07/25 Attending physician on admission: Robin Huitron Chief Complaint: abd pain 34-year-old male with a PMH significant for?continuing polysubstance use disorder with IVDU, endocarditis s/p bioprosthetic tricuspid valve replacement complicated by valve stenosis, septic pulmonary emboli and empyema, hx of DVT and PE noncompliant with Xarelto, cardiomyopathy, recurrent bacteremia and endocarditis, untreated chronic hepatitis-C, anemia, and hepatic cirrhosis presented to the ED from methadone clinic due to diffuse severe abdominal pain that started this morning. He denies any fevers, chills, nausea, vomiting, diarrhea, melena, hematochezia, urinary symptoms, shortness of breath, chest pain. He reports ongoing IV drug abuse, last use about 3 hours prior to arrival. He reports noncompliance with his medications with the exception of methadone. He reports he has never undergone paracentesis per his report. In the ED, blood pressure soft, vitals otherwise stable. There is a leukocytosis of 11.4. Renal function baseline, electrolyte levels normal except for chloride 110. Total bilirubin 1.3, direct bilirubin 0.7, AST 52, ALT 25. Troponins flat. BNP 449. CT abdomen/pelvis showed moderate amount of ascites with mild enteritis as well as cirrhosis. An attempt torus paracentesis was made at bedside but due to the mild amount of fluid noted around the right mid quadrant it was deemed to be too close to liver and recommendation was to have this performed by IR who was not able to accommodate the paracentesis today. Of note, the patient does desire sobriety with detox/rehab. He states that if he returns to the streets, I am going to ?. [facility] Medical History Rhabdomyolysis Anemia LUCERO (acute kidney injury) Polysubstance abuse Opioid use disorder Opioid use disorder, severe, dependence Substance abuse MSSA bacteremia Bacteremia Bacteremia Right heart failure Steatosis, liver Tricuspid valve stenosis Anasarca HCV (hepatitis C virus) Endocarditis Pulmonary embolism Surgical History History of tricuspid valve replacement with bioprosthetic valve Social History Household Members: Other Household Members Other:: residential Housing: Homeless Do you presently have visiting nurse or other home services: No Unable to assess alcohol history related to: Unknown Alcohol intake: never Patient Tobacco Use Status: Current everyday Tobacco user Tobacco use type: Cigarette Cigarette Packs Per Day: 1 Cigarettes Per Day: 10 Years Smoked: 10 Smoked in Last 30 Days: Yes Second Hand Smoke Exposure: No Use of substances other than those prescribed or required for medical reasons: Yes Substance Use Type: Methamphetamine Substance Use Frequency: Chronic Longstanding Last Used Substance: Hours (ago) Any prior treatment program specific to substance use: Yes Advance Directives: Yes Advance Directives on File: Yes Advance Directives Date on File: 04/16/21 Do you have a plan to hurt others: No Plan Nutrition Risks: No Nutritional Risk service: No Current occupational status: unemployed Meds Allergies Allergy/AdvReac Type Severity Reaction Status Date / Time No Known Allergies Allergy Verified 02/07/25 08:45 [No Known Allergies*] Home Medications ?Medication ?Instructions ?Recorded ?Confirmed ?Last Taken ?Type hydroxyzine HCl 50 mg tablet 50 mg PO TID PRN Anxiety 03/30/24 11/03/24 1 Week Ago History ~09/06/24 methadone 10 mg/mL oral 105 mg PO DAILY 09/13/24 12/25/24 12/23/24 10:26 History concentrate (Methadone Intensol) ferrous sulfate 325 mg (65 mg 325 mg PO DAILY 10/10/24 11/03/24 10/11/24 History iron) tablet,delayed release magnesium oxide 400 mg PO DAILY 10/10/24 11/03/24 10/11/24 History silver sulfadiazine 1 % topical 1 appl topical Q OTHER DAY 10/10/24 11/03/24 10/11/24 History cream thiamine HCl (vitamin B1) 100 mg 100 mg PO DAILY 10/10/24 11/03/24 10/11/24 History tablet (Vitamin B-1) rivaroxaban 20 mg tablet (Xarelto) 20 mg PO DAILY@1700 10/14/24 11/03/24 10/11/24 History albuterol sulfate 90 mcg/actuation 2 inh inhalation Q4-6H PRN wheezing 02/07/25 Unknown History breath activated powder inhaler (ProAir RespiClick) apixaban 5 mg tablet (Eliquis) 5 mg PO BID 02/07/25 Unknown History midodrine 2.5 mg tablet 2.5 mg PO TID 02/07/25 02/07/25 Unknown History Physical Exam Vital Signs and Narrative: Vital Signs: Last Vital Signs Temp 98.3 F 02/07/25 16:53 Pulse 83 02/07/25 16:53 Resp 12 02/07/25 16:53 BP 90/53 L 02/07/25 16:53 Pulse Ox 95 02/07/25 16:53 O2 Del Method Room Air 02/07/25 16:53 O2 Flow Rate 93 02/07/25 13:15 BMI result Body Mass Index 21.2 Constitutional - Awake but drowsy, No apparent distress Eyes - PERRLA, EOMI Cardiovascular - S1S2, RRR, No edema Respiratory - Normal lung expansion, Normal respiratory effort, No respiratory distress, CTA bilaterally Gastrointestinal - mild diffuse ttp with +fluid wave +BS; No rebound or guarding Extremities - no calf tenderness bilaterally, shallow ulceration of the anterion left lower leg with clean wound bed, no purulent drainage. There is also hyperpigmentation of the distal half of the left lower leg Skin - Warm/Dry Neurological - Alert & oriented x3, drowsy Psychological - Appropriate affect Results Labs 02/07/25 09:33 02/07/25 09:34 Labs: Laboratory Results - last 24 hr 02/07/25 02/07/25 02/07/25 09:33 09:34 09:39 MCV 68.6 L MCH 19.1 L MCHC 27.8 L RDW 20.8 H Plt Count 321 MPV 9.3 L Immature Gran % (Auto) 0.5 H Neut % (Auto) 78.6 H Lymph % (Auto) 9.9 L [place] % (Auto) 9.9 Eos % (Auto) 0.6 Baso % (Auto) 0.5 Lymph # (Auto) 1.1 L [place] # (Auto) 1.1 Eos # (Auto) 0.1 Baso # (Auto) 0.1 Abs Immat Gran (auto) 0.06 H Absolute Neuts (auto) 8.9 H Absolute Nucleated RBC 0.000 Nucleated RBC % (auto) 0.0 PT INR VBG pH VBG pCO2 VBG pO2 VBG HCO3 VBG O2 Saturation VBG Base Excess Anion Gap 10 L Estim Creat Clear Calc 117.0 Estimated GFR > 60 Random Glucose 82 Lactic Acid 1.0 Calcium 8.3 L Magnesium 1.6 Total Bilirubin 1.3 H Direct Bilirubin 0.7 H AST 52 H ALT 25 Alkaline Phosphatase 197 H Ammonia 54 Total Creatine Kinase 146 B-Natriuretic Peptide 449 H Total Protein 6.8 Albumin 3.3 L Lipase 8 Urine Color Urine Appearance Urine pH Ur Specific [place] Urine Protein Urine Glucose (UA) Urine Ketones Urine Blood Urine Nitrite Ur Leukocyte Esterase Urine RBC Urine WBC Ur Squamous Epith Cells Urine Bacteria Hyaline Casts Salicylates < 5.0 L Urine Opiates Screen Ur Buprenorphine Scrn Ur Oxycodone Screen Urine Methadone Screen Urine Fentanyl Screen Acetaminophen < 3 Ur Barbiturates Screen Ur Phencyclidine Scrn Ur Amphetamines Screen U Benzodiazepines Scrn Urine Cocaine Screen U Marijuana (THC) Screen Ethyl Alcohol < 10 02/07/25 02/07/25 02/07/25 09:45 13:28 14:10 MCV MCH MCHC RDW Plt Count MPV Immature Gran % (Auto) Neut % (Auto) Lymph % (Auto) [place] % (Auto) Eos % (Auto) Baso % (Auto) Lymph # (Auto) [place] # (Auto) Eos # (Auto) Baso # (Auto) Abs Immat Gran (auto) Absolute Neuts (auto) Absolute Nucleated RBC Nucleated RBC % (auto) PT 22.5 H D INR 1.9 H VBG pH 7.30 L VBG pCO2 49 VBG pO2 35 VBG HCO3 25 VBG O2 Saturation 43.0 VBG Base Excess -1.4 Anion Gap Estim Creat Clear Calc Estimated GFR Random Glucose Lactic Acid Calcium Magnesium Total Bilirubin Direct Bilirubin AST ALT Alkaline Phosphatase [place] Total Creatine Kinase B-Natriuretic Peptide Total Protein Albumin Lipase Urine Color Yellow Urine Appearance Clear Urine pH 6.0 Ur Specific [place] >= 1.030 H Urine Protein Trace Urine Glucose (UA) Negative Urine Ketones Negative Urine Blood Small (1+) H Urine Nitrite Negative Ur Leukocyte Esterase Negative Urine RBC 11-20 H Urine WBC 0-5 Ur Squamous Epith Cells 0-2 Urine Bacteria None Seen Hyaline Casts 0-2 Salicylates Urine Opiates Screen POSITIVE H Ur Buprenorphine Scrn Not Detected Ur Oxycodone Screen Not Detected Urine Methadone Screen Positive H Urine Fentanyl Screen POSITIVE H Acetaminophen Ur Barbiturates Screen Not Detected Ur Phencyclidine Scrn Not Detected Ur Amphetamines Screen Not Detected U Benzodiazepines Scrn Not Detected Urine Cocaine Screen POSITIVE H U Marijuana (THC) Screen Not Detected Ethyl Alcohol Imaging Radiologist's Impressions: Impressions Abdomen/Pelvis CT 02/07/25 10:46 IMPRESSION: Moderate amount of ascites. Mild enteritis, degenerative loops. Concerning hepatocellular disease. Cirrhosis cannot be excluded. Cardiomegaly. Coronary artery disease and atherosclerosis disease. Fleischner guidelines were followed. Electronically signed by: Rito Hernandez MD 02/07/2025 11:38 AM EDT Assessment and Plan (1) Wound of left leg: Status: Acute (2) Abdominal pain: Status: Acute Plan 34-year-old male with a PMH significant for?continuing polysubstance use disorder with IVDU, endocarditis s/p bioprosthetic tricuspid valve replacement complicated by valve stenosis, septic pulmonary emboli and empyema, hx of DVT and PE noncompliant with Xarelto, cardiomyopathy, recurrent bacteremia and endocarditis, untreated chronic hepatitis-C, anemia, and cirrhosis to be observed for ascites requiring paracentesis Decompensated hepatic cirrhosis with ascites CT abdomen/pelvis shows moderate ascites Bedside paracentesis attempted but unsuccessful due to location of ascites. Ultrasound-guided paracentesis with peritoneal fluid analysis ordered 1 g IV ceftriaxone for SBP prophylaxis LFTs baseline Follow liver function Polysubstance abuse with ongoing IV drug abuse Continue methadone Addiction medicine consult-desires detox/rehab U tox positive for opiates, methadone, fentanyl, cocaine Check HIV, hepatitis be antibody, viral load hepatitis-C (known but untreated) Outpatient follow-up for hepatitis-C treatment Venous ulcer of the left lower extremity No evidence of infection Wound care consult Hx of DVT/PE Hx of non-compliance with anticoagulation Continue Eliquis Chronic iron-deficiency anemia Stable, at baseline Continue iron supplementation Polysubstance use disorder Continue methadone Addiction medicine consult Hepatitis-C Chronic, untreated Encourage outpatient treatment Mood disorder Continue sertraline Full Code DVT Prophylaxis: On Xarelto Quality Stroke Does the patient have a stroke diagnosis?: No VTE Prior VTE?: Yes VTE Risk Level:: Medical - moderate - high VTE Device Contraindication: N/A - Device Ordered VTE Drug Contraindication: Treatment Not Indicated
--- OUTSIDE RECORDS SUMMARY | 2025-02-07 19:04 | XMS_ITS | Encounter Summary ---
Author Organization [employer] Address [address] [facility] [address] [place] [address] Care Team Providers Care Auto Design Checker Name Role Phone Alba So GENEVA Primary Care Provider [phone] Encounter Details Date Type Department Care Team (Late st Contact Info) Description 04/26/2024 Orders Only [facility] [address] [place], [place] [phone] Varun Givens, PharmD [address] [place] [address] Social History Tobacco Use Types Packs/Day Years [...] with others, in a hotel, in a usp, living outside on the street, on a [...] Care Team (Late st Contact Info) Description 02/13/2025 2:00 PM EDT Office Visit [facility] [address] [place] [address] Alba So NP [address] [place] [address] documented as of this encounter Visit Diagnoses Not on filedocumented in this encounter Additional Health Concerns Assessment Noted Time PHQ-9 Depression Total Score: 0 06/03/20 23 10:05 AM EDT documented as of this encounter Care Teams Auto Design Checker Relationship Specialty Start Date End Date Alba So NP [address] [place] [address] PCP - General Family Medicine 04/14/24 documented as of this encounter
--- OUTSIDE RECORDS SUMMARY | 2025-02-07 19:04 | XMS_ITS | Encounter Summary ---
Author Organization [employer] Address [address] [facility] [address] [place] [address] Care Team Providers Care Machine Pack Assembler Name Role Phone Megan Stevenson SALES ORDER PROCESSOR Primary Care Provider [phone] Jin Mack AGNYani Primary Care Provider Unavail Nirali Diaz SALES ORDER PROCESSOR Primary Care Provider [phone] Alba So NP Primary Care Provider [phone] Encounter Details Date Type Department Care Team (Late st Contact Info) Description 01/05/2023 Orders Only [facility] [address] [place] [address] Nohemi [place] FNP Social History Tobacco Use [...] empyema, recurrent bacteremia and endocarditis,was admitted to [facility] on 07/16/22 for evaluation of chest pain [...] mom and was in a program in [place] and [facility] October 23, now lives at [...] Description 02/13/2025 2:00 PM EDT Office Visit [facility] [address] [place] [address] Alba So NP [address] [place], [place] [phone] documented as of this encounter Procedures Procedure [...] EDT 04/13/2023 3:00 PM EDT Comment:Blood Narrative [facility] - 04/18/2023 5:00 PM EDT Blood Culture (Second) No growth after 5 days. Specimen Source: Blood [facility] Exter nal Provider LAB MICROBIOLOGY - GENERAL ORDERABLES Final Result Performing Organization Address [facility]/ZIP Co de Phone Number [facility] [address] [place] [address] [phone] * Blood Culture (First) (04/13/2023 2:20 PM EDT) Blood 04/13/2023 2:20 PM EDT 04/13/2023 3:00 PM EDT Comment:Blood Narrative [facility] - 04/18/2023 5:00 PM EDT Blood Culture (First) No growth after 5 days. Specimen Source: Blood [facility] Exter nal Provider LAB MICROBIOLOGY - GENERAL ORDERABLES Final Result Performing Organization Address [facility]/ZIP Co de Phone Number [facility] [address] [place] [phone] * (ABNORMAL) Urinalysis, Complete, with Reflex to Culture (03/16/2023 6:50 PM EDT) Color Urine Dark Yellow [facility] Appearance Urine Clear [facility] PH 6.5 5.0 - 9.0 [facility] Glucose Urine UA Negative Negative mg/dL [facility] Urine Blood Small (1+)(A) Negative [facility] Specific [place] - Urine 1.015 1.005 - 1.025 [facility] Urine Protein 100 (2+)(A) Neg-Trace mg/dL [facility] Urine Ketones Negative Negative mg/dL [facility] Nitrite Urine Positive(A) Negative [facility] Leukocyte Esterase Urine Small (1+)(A) Negative [facility] RBC Urine >20(A) 0 - 2 /HPF [facility] Urine WBC 6-10(A) 0 - 5 /HPF [facility] Urine Squamous Epithelial Cell 0-2 0 - 2 /HPF [facility] Urine Bacteria None Seen None Seen [facility] Hyaline Casts, Urine 0-2 0 - 2 /LPF [facility] 03/16/2023 6:50 PM EDT 03/16/2023 7:08 PM EDT Narrative [facility] - 03/16/2023 7:57 PM EDT Urine, Clean Catch us [facility] External Provider LAB URI NE ORDERABLES Final Result [facility] [address] [place] [phone] * (ABNORMAL) CBC auto differential (03/16/2023 5:18 PM EDT) White Blood Count 11.0(H) 4.8 - 10.8 X10*3/uL [facility] Red Blood Count 4.07(L) 4.60 - 5.80 X10*6/uL [facility] Hemoglobin 9.7(L) 14.0 - 18.0 g/dl [facility] Hematocrit 30.7(L) 42.0 - 52.0 % [facility] Mean Corpuscular Volume 75.4(L) 80.0 - 98.0 fL [facility] Mean Corpuscular Hemoglobin 23.8(L) 27.0 - 33.0 pg [facility] Mean Corpuscular HGB Conc 31.6 31.0 - 36.0 g/dl [facility] Red Cell Distribution Width 31.5(H) 11.0 - 16.0 % [facility] Platelet Count 597(H) 160 - 400 X10*3/uL [facility] Mean Platelet Volume 9.8 9.4 - 12.4 fL [facility] Neutrophils Percent Auto 60.7 45 - 73 % [facility] Imm Gran Pct Auto 2.0(H) 0.0 - 0.4 % [facility] Lymphocytes Percent Auto 24.7 20 - 40 % [facility] Monocytes Percent Auto 10.5 2 - 11 % [facility] Eosinophils Percent Auto 1.1 0 - 4 % [facility] Basophils Percent Auto 1.0 0 - 2 % [facility] NRBC Pct Auto 0.0 0.0 - 0.2 /100WBC [facility] Neutrophils Absolute Auto 6.7 2.0 - 8.3 x10*3/uL [facility] Imm Gran Abs Auto 0.22(H) 0.00 - 0.03 X10*3/uL [facility] Lymphocytes Absolute Auto 2.7 1.2 - 4.9 X10*3/uL [facility] Monocytes Absolute Auto 1.2 0.1 - 1.2 X10*3/uL [facility] Eosinophils Absolute Auto 0.1 0.0 - 0.4 X10*3/uL [facility] Basophils Absolute Auto 0.1 0.0 - 0.2 X10*3/uL [facility] NRBC Abs Auto 0.000 0.0 - 0.012 X10*3/uL [facility] 03/16/2023 5:18 PM EDT 03/16/2023 5:24 PM EDT us [facility] External Provider LAB BLO OD ORDERABLES Final Result [facility] [address] [place] [phone] * High Sensitivity Troponin I (03/16/2023 5:18 PM EDT) TROPONIN I HIGH SENSITIVITY 11.4 <3.5 - 35.0 ng/L [facility] Comment:The Coley high sens itivity Troponin-I results should beused in conjunction with other diagnostic information suchas ECG, clinical observations and information, and patientsymptoms to aid in the diagnosis of [place]. 03/16/2023 5:18 PM EDT 03/16/2023 5:24 PM EDT [facility] External Provider LAB BLO OD ORDERABLES Final Result Performing Organization Address [facility] Co de Phone Number [facility] [address] [place] [phone] * (ABNORMAL) B Type Natriuretic Peptide (BNP) (03/16/2023 5:18 PM EDT) B Type Natriuretic Peptide 378(H) <100 pg/mL [facility] Comment:For those patients w ho are being treated with Natrecor(nesiritide, recombinant BNP), BNP testing should beperformed at least two hours post treatment in order toensure that only endogenous levels of BNP are detected. 03/16/2023 5:18 PM EDT 03/16/2023 5:24 PM EDT [facility] External Provider LAB BLO OD ORDERABLES Final Result Performing Organization Address [facility] Co de Phone Number [facility] [address] [place] [phone] * (ABNORMAL) Lipase (03/16/2023 5:18 PM EDT) Lipase 168(H) 8 - 78 U/L [facility] 03/16/2023 5:18 PM EDT 03/16/2023 5:24 PM EDT [facility] External Provider LAB BLO OD ORDERABLES Final Result Performing Organization Address [facility] Co de Phone Number [facility] [address] [place] [phone] * (ABNORMAL) Basic Metabolic Panel (03/16/2023 5:18 PM EDT) Sodium 139 135 - 145 mmol/L [facility] Potassium 3.0(L) 3.3 - 5.1 mmol/L [facility] Chloride 106 96 - 108 mmol/L [facility] Carbon Dioxide 20(L) 22 - 29 mmol/L [facility] Anion Gap 16 12 - 20 [facility] Urea Nitrogen (BUN) 8(L) 9 - 16 mg/dL [facility] Creatinine, Serum 0.74 0.5 - 1.4 mg/dL [facility] Creatinine Clr Calc Pharmacy 131.5 [facility] Comment:eGFR (calculated fro m the MDRD study equation) and eCrCl(calculated from the Cockcroft-Gault equation) are based ondifferent parameters and may not yield comparable results.If eCrCl result is absurd, please check patient'sheight/weight. Estimated Glomerular Filt Rate >60 [facility] Comment:NOTE: For -Am erican individuals, multiply the result by 1.210.Chronic Kidney Disease: Estimated GFR < 60 mL/min/1.43b3Wdgock Kidney Disease: Estimated GFR < 15 mL/min/1.73m2 Glucose 84 60 - 115 mg/dL [facility] Calcium 9.4 8.4 - 10.2 mg/dL [facility] 03/16/2023 5:18 PM EDT 03/16/2023 5:24 PM EDT us [facility] External Provider LAB BLO OD ORDERABLES Final Result [facility] [address] [place] [phone] * (ABNORMAL) Hepatic Function Panel (03/16/2023 5:18 PM EDT) Bilirubin, Total 5.9(H) 0.0 - 1.0 mg/dL [facility] Bilirubin, Direct 3.5(H) 0.0 - 0.5 mg/dL [facility] Aspartate Amino Transferase 19 5 - 37 U/L [facility] Alanine Aminotransferase 13 0 - 40 U/L [facility] Total Protein 7.7 6.5 - 8.0 g/dL [facility] Albumin Level 3.9 3.5 - 5.0 g/dL [facility] Alkaline Phosphatase 154(H) 39 - 117 U/L [facility] 03/16/2023 5:18 PM EDT 03/16/2023 5:24 PM EDT [facility] External Provider LAB BLO OD ORDERABLES Final Result Performing Organization Address [facility]/ZIP Co de Phone Number [facility] [address] [place] [phone] * Lactic Acid (03/16/2023 5:18 PM EDT) Lactic Acid 1.7 0.5 - 2.0 mmol/L [facility] 03/16/2023 5:18 PM EDT 03/16/2023 5:24 PM EDT [facility] External Provider LAB BLO OD ORDERABLES Final Result Performing Organization Address [facility] Co de Phone Number [facility] [address] [place] [phone] documented in this encounter Visit Diagnoses Not on filedocumented in this encounter Care Teams Machine Pack Assembler Relationship Specialty Start Date End Date Megan Stevenson FNP PCP - General Family Medicine 03/27/22 04/23/23 Jin Mack AGNP PCP - General Family Medicine 04/24/23 07/08/23 Nirali Lott FNP [address] [place] [phone] PCP - General Family Medicine 07/09/23 04/13/24 Alba So NP [address] [place] [phone] PCP - General Family Medicine 04/14/24 documented as of this encounter
--- OUTSIDE RECORDS SUMMARY | 2025-02-07 19:04 | XMS_ITS | Encounter Summary ---
Author Organization [employer] Address [address] [facility] [address] [place] [address] Care Team Providers Care Dog Walker Name Role Phone Nirali Lott Primary Care Provider [phone] Alba So NP Primary Care Provider [phone] Reason for Visit * Reason Onset Date Comments Referral 10/16/2023 Encounter Details Date Type Department Care Team ([facility] Contact Info) Description 10/16/2023 Telephone [facility] [address] [place] [address] Nirali Lott FNP [address] [place] [address] Referral Social History Tobacco Use Types Packs/Day [...] - 10/16/2023 10:22 AM EST Tc from [facility] ortho never received referral. documented in this encounter Plan of Treatment Upcoming Encounters Date Type Department Care Team (Late st Contact Info) Description 02/13/2025 2:00 PM EDT Office Visit [facility] [address] [place] [address] Alba So NP [address] [place] [address] documented as of this encounter Visit Diagnoses Not on filedocumented in this encounter Additional Health Concerns Assessment Noted Time PHQ-9 Depression Total Score: 0 06/03/20 23 10:05 AM EDT documented as of this encounter Care Teams Dog Walker Relationship Specialty Start Date End Date Nirali Lott FNP [address] [place] [address] PCP - General Family Medicine 07/09/23 04/13/24 Alba So NP [address] [place] [address] PCP - General Family Medicine 04/14/24 documented as of this encounter
--- OUTSIDE RECORDS SUMMARY | 2025-02-07 19:04 | XMS_ITS | Clinical Summary ---
Author Organization [employer] Address [address] [place] [address] Care Team Providers Care Coal Chemist Name Role Phone Tolatoya Alba BEAN Primary Care Provider [phone] Allergies No known active allergies Medications * [...] treatment, ambulance called and expect called to [facility]. 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 Assessment & Plan (11/21/2024 7:05 PM EST): Pt with complicated hx and difficulty with out patient compliance Meds reconciled with [facility] discharge documents and refilled Pt prefers to seek care at [facility] today for ongoing cardiac issues Endocarditis [...] he gets home to be transported to [facility] for stitching as he did not want to be transported directly from the clinic Hx of pulmonary embolus 04/18/2023 Overview (04/18/2023): Treating w/ Xarelto 20 mg daily while at [facility] 03/16/23-04/15/23 (anticipated discharge date) Anemia, chronic disease 10/09/2022 Symptomatic anemia 10/09/2022 Overview (10/09/2022): Acute anemia related to tooth extractions on 10/01/22 while still on xarelto for anticoagulation. Taken to [facility] ED, bleeding gums, not able to stop with pressure Hemoglobin 3 Received 1 prbc transfusion Transferred to [facility] for admission on 10/02/22. Received another transfusion Discharged 10/06/22 Ascites 07/21/2022 Bacteremia 07/21/2022 Overview (04/18/2023): Recurrent bacteremia and endocarditis found 03/04/23. Admitted. Left AMA on 03/14/23 Returned 03/15/23. Admitted again with plan to transfer to [facility], [facility], to continue antibiotics until 04/15 to finish [...] Heroin dependence 06/27/2022 Overview (08/23/2024): Admitted to [facility] for rehab Treated w/ Methadone 40 mg at [facility] 03/16/23-04/15/23 -[facility] 08/23/24 Assessment & Plan (08/23/2024 2:45 PM EST): Admitted to [facility] for rehab Treated w/ Methadone 40 mg at [facility] 03/16/23-04/15/23 -referred to [facility] [...] 2020 Overview (10/09/2022): 07/16/22 - Presented to [facility] ED with hypotension, found to be in septic shock 07/20/22 - Left hospital AMA before completing IV antibiotics. Blood cultures positive for GBS and required pressor support when he arrived. 07/21/22 - Mother took Pt to [facility] ED since he left [facility] AM. 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 I will place a referral to our [facility] hep c team. Encounters * This document contains information received from the source organization and may not represent a complete record from that organization. Date Type Department Care Team Description 02/01/2025 Telephone [facility] [address] [place] [address] [phone] Alba So NP 01/30/2025 Patient Outreach [address] [address] Alba So NP Transition Of Care (Tcm) 01/27/[address] [address] Alba So NP No Show (Patient no show for HDF ) 01/25/[address] [facility] [address] [place] [address] Alba So NP 01/24/[address] [address] Anastacio Braxton MA chartprep 01/24/2025 Patient Outreach [address] [address] Alba So NP 01/23/2025 Patient Outreach [address] [address] Alba So NP Care Coordination (CHW outreach for SDOH PT-1 and food needs-LVM ) 01/19/2025 Patient Outreach [address] [address] Alba So NP Transition Of Care (Tcm) (HDF scheduled and SDOH screening positive and Tobacco screening positive) 01/17/2025 Patient Outreach [address] [address] Alba So NP Care Coordination (Outreach) 01/16/2025 Patient Outreach [address] [address] Alba So NP Transition Of Care (Tcm) (HDF unscheduled) 01/11/2025 Patient Outreach [address] [address] Alba So NP Care Coordination (Outreach) 01/11/2025 Patient Outreach [address] [address] Alba So NP Care Coordination (C3/CM Chart Review) 01/11/[address] [facility] [address] [place] [address] Alba So NP Care Coordination (C3 Chart review) 01/11/2025 Patient Outreach [facility] [address] [place] [address] Alba So NP 12/30/2024 Population Health Risk Score [facility] (C3) [address] [phone] Provider, Population Health Generic 12/25/2024 Orders Only GENERIC EXTERNAL DATA DEPARTMENT Provider, Generic External Data 12/22/[address] [address] Alba So NP 12/21/2024 Orders Only [address] [address] Alba So NP 12/20/[address] [address] Beth Fong RN 12/20/2024 Patient Outreach [address] [address] Alba So NP Transition Of Care (Tcm) 12/19/2024 Refill [facility] [address] [place] [phone] Astrid Becker NP History of artificial heart valve 12/08/2024 Orders Only GENERIC EXTERNAL DATA DEPARTMENT Provider, Generic External Data 11/22/2024 Patient Outreach [address] [address] Alba So NP Transition Of Care (Tcm) 11/21/2024 4:00 PM EST Office Visit [facility] [address] [place] [phone] Astrid Becker NP History of artificial heart valve (Primary Dx); Mild intermittent asthma, unspecified whether complicated; Endocarditis of tricuspid valve; Cellulitis of left lower extremity; Drug abuse, IV ([facility]) 11/21/2024 Patient Outreach [address] [address] Alba So NP Transition Of Care (Tcm) 11/18/2024 Patient Outreach [address] [address] Alba So NP Transition Of Care (Tcm) (HDF- Unscheduled (denied)) 11/11/2024 Patient Outreach [facility] [address] [facility] [place] [address] Alba So NP Transition Of Care (Tcm) (HDF-LVM ) from Last 3 Months Immunizations Name Administration [...] with others, in a hotel, in a snf, living outside on the street, on a [...] Description 02/13/2025 2:00 PM EDT Office Visit [facility] [address] [place] [address] Alba So NP [address] [place] [address] Health Maintenance Due Date Last Done Comments [...] 2024 Influenza Vaccine (#1) 2024 0, 07/27/2020 Alcohol/Substance Use Screening 10/18/2025 10/18/2024 Depression Screening [...] QL NAAT Routine 12/08/2024 11:24 PM EST HIV 1/2 ANTIGEN/ANTIBODY, FOURTH GENERATION W/RFL Routine 04/08/2024 11:52 AM EDT Hepatitis C virus infection without hepatic coma, unspecified chronicity from Last 3 Months or Most Recently Relevant to Health Maintenance Results * CTA Chest PE Protocal (12/25/2024 3:57 PM EDT) Anatomical Region Laterality Modality Body, Chest Computed Tomogra phy 12/25/2024 3:57 PM EDT Narrative 12/25/2024 3:59 PM EDT ? [facility] ?[address] ?[place] [address] ? CT Scan Report ? Signed ? Patient: Coriano,Norberto ?MR#: [id number] ? : 1990 ?Acct:[id number] ? Age/Sex: 34 / M ?ADM Date: 12/25/24 ? Loc: HO.ED ? Attending Dr: ? Ordering Physician: Fartun Farris ?? Date of Service: 12/25/24 ?? Procedure(s): CT angio chest PE protocol ?? Accession Number(s): [id number] ? cc: Alba So; Fartun Farris ? Report Number: ?? [id number]: Total DLP = ??181.00 mGy-cm ? CLINICAL HISTORY: sob, cp ? CT angiography chest with contrast. 3D Postprocessing. ? Comparison: CT/DC - CT ANGIO CHEST PE PROTOCOL - [...] by Shirley Pacheco MD in OV> ? 12/25/241558 ? DD/ ? TD/TT: 12/25/247 ? Fiberglass Auto Body Repairer: ? Procedure Note Donotuseinterpreter, Image - 12/25/[address] [address] Scan Report Signed Patient: Zully Marquez#: [id number] : 1990Acct:[id number] Age/Sex: 34 / MADM Date: 12/25/24 Loc: HO.ED Attending Dr: Ordering Physician: Fartun Farris Date of Service: 12/25/24 Procedure(s): CT angio chest PE protocol Accession Number(s): [id number] cc: Alba So; Fartun Farris Report Number: [id number]: Total DLP = 181.00 mGy-cm CLINICAL HISTORY: sob, cp CT angiography chest with contrast. 3D Postprocessing. Comparison: CT/DC - CT ANGIO CHEST PE PROTOCOL - [...] OV> 12/25/24 1559 DD/ 155 TD/TT: 12/25/241556 Fiberglass Auto Body Repairer: [facility] External Provider IMG CT PROCEDURES Edited Result - Final * High Sensitivity Troponin I (12/25/2024 2:10 PM EDT) Only the most recent of3 resultswithin the time period is included. TROPONIN I HIGH SENSITIVITY 5.7 <3.5 - 35.0 ng/L [facility] Comment:The Coley high sens itivity Troponin-I results should beused in conjunction with other diagnostic information suchas ECG, clinical observations and information, and patientsymptoms to aid in the diagnosis of ID. 12/25/2024 2:10 PM EDT 12/25/2024 2:12 PM EDT us Generic External Data Provider LAB BLOOD ORDERAB LES Final Result Performing Organization Address [facility]/ZIP Co de Phone Number [facility] [address] [place] [address] [phone] * (ABNORMAL) VENOUS BLOOD GAS (12/25/2024 9:50 AM EDT) Pathologist [facility] VBG pH 7.40 7.32 - 7.43 [facility] Comment:METER #: [id number] additional_comment: [facility] VBG PCO2 29 mmHg [facility] Comment:METER #: [id number] additional_comment: [facility] VBG PO2 64 mmHg [facility] Comment:METER #: [id number] additional_comment: [facility] VBG Base Excess -5.1 mmol/L [facility] Comment:METER #: [id number] additional_comment: [facility] VBG HCO3 18(L) 22 - 26 mmol/L [facility] Comment:METER #: [id number] additional_comment: [facility] O2 Sat, Bry 91.0 % [facility] Comment:METER #: [id number] additional_comment: Cb[facility]anae 12/25/2024 9:50 AM EDT 12/25/2024 9:53 AM EDT us Generic External Data Provider LAB BLOOD ORDERAB LES Final Result Performing Organization Address City/[facility]/ZIP Co de Phone Number [facility] [address] [place] [phone] * Ethanol (12/25/2024 9:41 AM EDT) ETHANOL (MG/DL) IN SER/PLAS <10 mg/dL [facility] Comment:Serum/plasma ethanol results are to be used formedical/treatment purposes only. 12/25/2024 9:41 AM EDT 12/25/2024 10:02 AM EDT us Generic External Data Provider LAB BLOOD ORDERAB LES Final Result Performing Organization Address [facility] Co de Phone Number [facility] [address] [place] [phone] * Magnesium (12/25/2024 9:41 AM EDT) Magnesium 1.8 1.6 - 2.6 mg/dL [facility] 12/25/2024 9:41 AM EDT 12/25/2024 10:02 AM EDT us Generic External Data Provider LAB BLOOD ORDERAB LES Final Result Performing Organization Address [facility] Co de Phone Number [facility] [address] [place] [phone] * Lactic Acid (12/25/2024 9:41 AM EDT) Lactic Acid 1.4 0.5 - 2.0 mmol/L [facility] 12/25/2024 9:41 AM EDT 12/25/2024 9:47 AM EDT Generic External Data Provider LAB BLOOD ORDERAB LES Final Result Performing Organization Address [facility] de Phone Number [facility] [address] [place] [phone] * (ABNORMAL) Comprehensive Metabolic Panel (12/25/2024 9:41 AM EDT) Only the most recent of2 resultswithin the time period is included. Sodium 140 135 - 145 mmol/L [facility] Potassium 3.8 3.3 - 5.1 mmol/L [facility] Chloride 114(H) 96 - 108 mmol/L [facility] Carbon Dioxide 17(L) 22 - 29 mmol/L [facility] Anion Gap 13 12 - 20 [facility] Urea Nitrogen (BUN) 21(H) 9 - 16 mg/dL [facility] Creatinine, Serum 0.76 0.5 - 1.4 mg/dL [facility] Creatinine Clr Calc Pharmacy 112.0 [facility] Comment:eGFR (calculated fro m the MDRD study equation) and eCrCl(calculated from the Cockcroft-Gault equation) are based ondifferent parameters and may not yield comparable results.If eCrCl result is absurd, please check patient'sheight/weight. Estimated Glomerular Filt Rate >60 [facility] Comment:Chronic Kidney Disea se: Estimated GFR < 60 mL/min/1.19x7Fqttga Kidney Disease: Estimated GFR < 15 mL/min/1.73m2 Glucose 75 60 - 115 mg/dL [facility] Calcium 8.9 8.4 - 10.2 mg/dL [facility] Bilirubin, Total 1.2(H) 0.0 - 1.0 mg/dL [facility] Aspartate Amino Transferase 107(H) 5 - 37 U/L [facility] Alanine Aminotransferase 51(H) 0 - 40 U/L [facility] Total Protein 7.9 6.5 - 8.0 g/dL [facility] Albumin Level 3.6 3.5 - 5.0 g/dL [facility] Alkaline Phosphatase 247(H) 39 - 117 U/L [facility] 12/25/2024 9:41 AM EDT 12/25/2024 10:02 AM EDT us Generic External Data Provider LAB BLOOD ORDERAB LES Final Result [facility] [address] [place] [phone] * D Dimer High Sensitivity (12/25/2024 9:40 AM EDT) D Dimer High Sensitivity 413 NG/ML [facility] Comment:D-DIMER HS REFERENCE RANGENote: Our assay reports D-Dimer Units (D- DU).The cut-off value for venous thromboembolic (VTE) disease is230 ng/mL. This value has a very high negative predictivevalue when the patient has a low to moderate clinicalprobability of VTE.The upper limit of normal is 243 ng/mL. 12/25/2024 9:4 0 AM EDT 12/25/2024 9:47 AM EDT Generic External Data Provider LAB BLOOD ORDERAB LES Final Result Performing Organization Address [facility]/ZIP Co de Phone Number [facility] [address] [place] [phone] * Blood Culture (First) (12/25/2024 9:40 AM EDT) Blood Venous blood specimen / Unknown 12/25/2024 9:40 AM EDT 12/25/2024 9:47 AM EDT Comment:Blood [facility] - 12/30/2024 11:47 AM EDT Blood Culture (First) No growth after 5 days. Specimen Source: Blood Generic External Data Provider LAB MICROBIOLOGY - GENERAL ORDERABLES Final Result [facility] [address] [place] [phone] * Blood Culture (Second) (12/25/2024 9:40 AM EDT) Blood Venous blood specimen / Unknown 12/25/2024 9:40 AM EDT 12/25/2024 9:47 AM EDT Comment:Blood Narrative [facility] - 12/30/2024 11:47 AM EDT Blood Culture (Second) No growth after 5 days. Specimen Source: Blood Generic External Data Provider LAB MICROBIOLOGY - GENERAL ORDERABLES Final Result Performing Organization Address [facility] Co de Phone Number [facility] [address] [place] [phone] * (ABNORMAL) SARS-CoV-2 RNA, Influenza A/B, and RSV RNA, Ql NAAT (12/25/2024 9:40 AM EDT) Only the most recent of2 resultswithin the time period is included. Pathologist [facility] Influenza A PCR NEGATIVE Negative [facility] Influenza B PCR NEGATIVE Negative [facility] Resp Syncy Virus RNA Qual PCR POSITIVE(A) Negative [facility] SARS COV2 PCR NEGATIVE Negative [facility] Comment:All test results mus [...] use by authorized laboratories.Testing performed on the [employer] GeneXpert utilizingreal-time RT-PCR.All SARS CoV2 and positive influenza A/B results arereported to [facility]. 12/25/2024 9:40 AM EDT 12/25/2024 9:47 AM EDT Generic External Data Provider LAB MICROBIOLOGY - GENERAL ORDERABLES Final Result Performing Organization Address [facility]/ZIP Co de Phone Number [facility] [address] [place] [phone] * (ABNORMAL) CBC auto differential (12/25/2024 9:40 AM EDT) Only the most recent of2 resultswithin the time period is included. Pathologist [facility] White Blood Count 10.2 4.8 - 10.8 X10*3/uL [facility] Red Blood Count 4.28(L) 4.60 - 5.80 X10*6/uL [facility] Hemoglobin 8.8(L) 14.0 - 18.0 g/dl [facility] Hematocrit 29.5(L) 42.0 - 52.0 % [facility] Mean Corpuscular Volume 68.9(L) 80.0 - 98.0 fL [facility] Mean Corpuscular Hemoglobin 20.6(L) 27.0 - 33.0 pg [facility] Mean Corpuscular HGB Conc 29.8(L) 31.0 - 36.0 g/dl [facility] Red Cell Distribution Width 22.5(H) 11.0 - 16.0 % [facility] Platelet Count 380 160 - 400 X10*3/uL [facility] Mean Platelet Volume 9.4 9.4 - 12.4 fL [facility] Neutrophils Percent Auto 77.4(H) 45 - 73 % [facility] Imm Gran Pct Auto 0.5(H) 0.0 - 0.4 % [facility] Lymphocytes Percent Auto 11.5(L) 20 - 40 % [facility] Monocytes Percent Auto 9.3 2 - 11 % [facility] Eosinophils Percent Auto 0.6 0 - 4 % [facility] Basophils Percent Auto 0.7 0 - 2 % [facility] NRBC Pct Auto 0.3(H) 0.0 - 0.2 /100WBC [facility] Neutrophils Absolute Auto 7.9 2.0 - 8.3 x10*3/uL [facility] Imm Gran Abs Auto 0.05(H) 0.00 - 0.03 X10*3/uL [facility] Lymphocytes Absolute Auto 1.2 1.2 - 4.9 X10*3/uL [facility] Monocytes Absolute Auto 0.9 0.1 - 1.2 X10*3/uL [facility] Eosinophils Absolute Auto 0.1 0.0 - 0.4 X10*3/uL [facility] Basophils Absolute Auto 0.1 0.0 - 0.2 X10*3/uL [facility] NRBC Abs Auto 0.030(H) 0.0 - 0.012 X10*3/uL [facility] 12/25/2024 9:40 AM EDT 12/25/2024 9:47 AM EDT Generic External Data Provider LAB BLOOD ORDERAB LES Final Result Performing Organization Address [facility] Co de Phone Number [facility] [address] [place] [phone] * (ABNORMAL) Prothrombin Time-INR (12/25/2024 9:40 AM EDT) Prothrombin Time 21.7(H) 10.9 - 12.4 SEC [facility] INTERNATIONAL NORM RATIO 1.9(H) 0.9 - 1.1 [facility] Comment:INTERNATIONAL NORMAL IZED RATIO (INR) [...] ORDERAB LES Final Result Performing Organization Address [facility] Co de Phone Number [facility] [address] [place] [phone] * (ABNORMAL) Drug Monitoring, Panel 1, Screen, Urine (12/25/2024 12:00 AM EST) Opiate Screen Urine Not Detected Not Detect [facility] Comment:Opiate cut-off is 30 0 ng/mL.Positive results are unconfirmed and should not be used fornon-medical purposes. Barbiturates, Urine Not Detected Not Detect [facility] Comment:Barbiturate cut-off is 200 ng/mL.Positive results are unconfirmed and should not be used fornon-medical purposes. Phencyclidine Screen Urine Not Detected Not Detect [facility] Comment:Phencyclidine cut-of f is 25 ng/mL.Positive results are unconfirmed and should not be used fornon-medical purposes. Amphetamine Screen Urine Not Detected Not Detect [facility] Comment:Amphetamine cut-off is 1000 ng/mL.Positive results are unconfirmed and should not be used fornon-medical purposes. Benzodiazepines Screen Urine Not Detected Not Detect [facility] Comment:Benzodiazepine cut-o ff is 200 ng/mL.Positive results are unconfirmed and should not be used fornon-medical purposes. Cocaine Screen Urine POSITIVE(A) Not Detect [facility] Comment:Cocaine cut-off is 3 00 ng/mL.Positive results are unconfirmed and should not be used fornon-medical purposes. Cannabinoid Screen Urine POSITIVE(A) Not Detect [facility] Comment:Cannabinoid cut-off is 50 ng/mL.Positive results are unconfirmed and should not be used fornon-medical purposes. Methadone Screen, Urine Positive(A) Not Detect ng/mL [facility] Comment:Methadone cut-off is 300 ng/mL.Positive results are unconfirmed and should not be used fornon-medical purposes. FENTANYL URINE POSITIVE(A) Not Detect [facility] Comment:Fentanyl cut-off is 1 ng/mL.Positive results are unconfirmed and should not be used fornon-medical purposes. Oxycodone Urine Screen Not Detected Not Detect ng/mL [facility] Comment:Oxycodone cut-off is 100 ng/mL.Positive results are unconfirmed and should not be used fornon-medical purposes. Buprenorphine Screen Not Detected Not Detect ng/mL [facility] Comment:Buprenorphine cut-of f is 5 ng/mL.Positive results are unconfirmed and should not be used fornon-medical purposes. 12/25/2024 12/25/2024 us Generic External Data Provider LAB URINE ORDERAB LES Final Result Performing Organization Address [facility]/ZIP Co de Phone Number [facility] [address] [place] [phone] * HIV-1/2 Antigen and Antibodies, Fourth Generation, with Reflexes (04/08/2024 11:52 AM EDT) HIV AB/AG Nonreactive Nonreactive [facility] Comment:HIV-1 p24 Ag and/or HIV-1/HIV-2 Ab not detected.A test result that is nonreactive does not exclude thepossibility of exposure to or infection with HIV-1 and/orHIV-2. Nonreactive results in this assay for individualswith prior exposure to HIV-1 and/or HIV-2 may be due toantigen and antibody levels that are below the limit ofdetection of this assay.The When You Wish HIV Ag/Ab Combo assay result andsupplemental assay results should be interpreted inconjunction with the patient's clinical presentation,history and other laboratory results. If the results areinconsistent with clinical evidence, additional testing issuggested to confirm the result. Blood Venous blood specimen / Unknown 04/08/2024 11:52 AM EDT 04/08/2024 12:58 PM EDT Alba So NP LAB BLOOD ORDERABLES Final Resu lt Performing Organization Address [facility]/ZIP Co de Phone Number [facility] [address] [place] [phone] from Last 3 Months or Most Recently Relevant to Health Maintenance Insurance [facility] C3 HSN FULL Care Teams Coal Chemist Relationship Specialty Start Date End Date Alba So NP [address] [place] [phone] PCP - General Family Medicine 04/14/24
--- OUTSIDE RECORDS SUMMARY | 2025-02-07 19:04 | XMS_ITS | Clinical Summary ---
Author Organization [facility] Facility Address [address] [place] [address], [place] [address] Care Team Providers Care Pattern Molder Name Role Phone Unavailable Primary Care Provider [...] age to complete [place]
--- OUTSIDE RECORDS SUMMARY | 2025-02-07 19:04 | XMS_ITS | Encounter Summary ---
Author Organization [employer] Address [address] [facility] 7t [place] [address] Care Team Providers Care Harness Brusher Name Role Phone Alba So NP Primary Care Provider [phone] Encounter Details Date Type Department Care Team (Late st Contact Info) Description 12/21/2024 Orders Only [facility] MEDICINE [address] [place] [address] Alba So NP [address] [place] [address] Social History Tobacco Use Types Packs/Day Years [...] Description 02/13/2025 2:00 PM EDT Office Visit [facility] MEDICINE [address] [place] [address] Alba So NP [address] [place] [address] documented as of this encounter Visit Diagnoses Not on filedocumented in this encounter Additional Health Concerns Assessment Noted Time PHQ-9 Depression Total Score: 18 024 11:56 AM EST documented as of this encounter Care Teams Harness Brusher Relationship Specialty Start Date End Date Alba So NP [address] [place] [address] PCP - General Family Medicine 04/14/24 documented as of this encounter
--- OUTSIDE RECORDS SUMMARY | 2025-02-07 19:04 | XMS_ITS ---
Author Organization [employer] Address [address] [facility] [facility] 7t [place] [address] Care Team Providers Care City Council Member Name Role Phone Alba So NP Primary Care Provider [phone] CHW Complex Status:Outreach In Progress (Enrolling) Start date:01/11/2025 Enrollment reason:ADT Feed Overview ADT- Pt admitted to [facility] on 01/09/25. Case Team Name Relationship Phone Meagan Garnett (Responsible Staff) Continued Care and Services Coordination
--- OUTSIDE RECORDS SUMMARY | 2025-02-07 19:04 | XMS_ITS | Data Portability ---
Author Organization [facility] [employer] [facility], Main Office Address [address] [facility] [address] [place] [address] Care Team Providers Care Freezer Unloader Name Role Phone [facility] OTHER Assessment Encounter Date Assessment Date Assessment LastModified by Organization Details LastModified Time 04/09/2023 04/09/2023 04/01/23 wbc 6.8, hgb 9.2, plt 291, na 145, k 3.5, creat 0.9 04/08/23 na 140, k 3.8, creat 0.7 t bili 1.5, alk phos 144, ast/alt 137 [id number] Not available 04/09/2023 08:41:20 Plan of Treatment [...] Address Organization Details Recorded Time Septic shock 91964113 Active 2022 Martinez Rendon MD [address] [facility], [address], [place], [address], [facility] 3 15:13:19 Infective endocarditis of tricuspid valve 023746895 Active 2022 Martinez Rendon MD [address], [address], [place], [address], [facility] 3 15:13:41 Pulmonary embolism 39527633 Active 2022 Martinez Rendon MD [address], [address], [place], [address], [place] [facility] 3 15:13:48 Chronic hepatitis C 646229672 Active 2022 Martinez Rendon MD [address], [address], [place], [address], [facility] 3 15:13:55 Anemia 346057328 Active 2022 Martinez Rendon MD [address], [address], [place], [address], [facility] 3 15:14:52 Cirrhosis of liver 91130427 Active 2022 Martniez Rendon MD [address], [address], [place], [address], [facility] 3 15:14:58 Congestive heart failure 12663464 Active 2022 Martinez Rendon MD [address], [address], [place], [address], [facility] 3 15:15:02 Polysubstance abuse 271142857 Active 2022 Martinez Rendon MD [address], [address], [place], [address], [facility] 3 15:15:08 Unsheltered homelessness Active 2022 Martinez Rendon MD [address], [address], [place], [address], [facility] 3 15:15:20 Tobacco user 167581484 Active 2022 Martinez Rendon MD [address], [address], [place], [address], [facility] 3 15:35:03 Primary insomnia 1640298 Active 2022 Martinez Rendon MD [address], [address], [place], [address], [facility] 3 15:34:02 Problem Notes None recorded. Medical Equipment None Reported. Allergies No known drug allergies Medications Not known to be on any medication Vitals None Recorded Social History Question Answer Notes LastModified by Organizat ion Details LastModified Time Tobacco Smoking Status Current Every Day Smoker Martinez Rendon MD [address], [address], [place], [address], [facility] 03/24/2023 15:12:49 What Is Your Level Of [...] SNOMED-CT Code Diagnosis ICD10 Code Diagnosis Note [id number] Martinez Rendon MD [facility] on [address] [place] [address] 03/24/2023 15:03:52 03/30/2023 15:17:15 Septic shock 65614159 R65.21 see HPInow onnafcilli n 2 gm q 4 for 26 daysadd probiotic bidmonitor cbcupdate ID with concerns Polysubstance abuse 4452 41560 F19.10 maintained onmethadon e 40 mg qdwill establish with clinicSUDS counselor at facility Infective endocarditis of tricuspid valve 948097973 I33.0 see HPIhx of TV endocardit is s/p bioprosthe tic TVR complicate d by bioprosthe tic valve stenosismo nitor for sxadded to PMHpatient is followed by CT surgery and cardiology at [facility] Pulmonary embolism 39482 003 I26.99 xarelto 20 mg qdmonitor respirator y status Chronic hepatitis C 1283 92943 B18.2 untreated with resultant cirrhosis of liver with hx etohwill refer to GI Cirrhosis of liver 007 K74.69 see above Anemia 098048267 D50.8 appears due to malnutriti on and iron deficiency monitor cbciron studies prndietary consult prn Congestive heart failure 63954497 I50.22 carrying dxmaintain ed on spironolac tone 25 mg qdmonitor respirator y status and need to titrate Unsheltere d homelessness [id number] 71169 Z59.02 social media project manager to be involvedma y be barrier to dischargep atient with repeated AMA discharges added to PMH Tobacco user 315143342 Z 72.0 currently refusing nicotine patchis smoking at facilityco nsidering quitting, encouraged may start patch tomorrow [id number] Martinez Rendon MD [facility] on [address] [place] [phone] 03/25/2023 15:30:14 03/30/2023 15:28:18 Primary insomnia 9290368 F51.01 see HPIwill starttraza done 25 mg qhs prnmonitor for effect and need to titrate Polysubstance abuse 4452 48480 F19.10 methadone 40 mg qdcurrentl y stable at baseline [id number] SCOTTIE Chen [facility] on [address] [place] [phone] 03/30/2023 08:21:03 04/01/2023 10:41:27 Septic shock 46243236 R65.21 nafcillin 2 gm q 4 hrs til 04/19/23moni tor cbcf/u with ID s Polysubstance abuse 4452 20561 F19.10 methadone 40 mg qdf/u with methadone clinicSUDs counseling at facility Infective endocarditis of tricuspid valve 790954665 I33.0 hx of TV endocardit is s/p bioprosthe tic TVR complicate d by bioprosthe tic valve stenosispt notes sob intermitte ntly since TVR a couple of years agowaiting for CXR resultsfol lowed by CT surgery and cardiology at [facility] Pulmonary embolism 10943 003 I26.99 xarelto 20 mg qdmonitor resp status, bleeding risk Chronic hepatitis C 1283 03908 B18.2 untreated with resultant cirrhosis of liver with hx etohreferr ed to GI Cirrhosis of liver 007 K74.69 see above Anemia 416114964 D50.8 appears due to malnutriti on and iron deficiency monitor cbciron studies prndietary consult prn Congestive heart failure 82983231 I50.22 compensate dspironola ctone 25 mg qdmonitor respirator y status and need to titrate Unsheltere d homelessness 1638268034 52189 Z59.02 social worker assistant involvedba rrier to dischargep atient with repeated AMA discharges Primary insomnia 5410860 F51.01 increase trazodone to 50 mg qhsmonitor for effect [id number] Martinez Rendon MD [facility] on [address] [place] [address] 03/31/2023 16:07:11 04/03/2023 16:00:10 Polysubstance abuse 415634881 F19.10 see HPImethado ne 40 mg qd currentlyp atient can f/u at methadone clinic for dose adjustment Septic shock 38747091 R6 5.21 nafcillin 2 gm q 4 to complete courserepe at cbc in am Pulmonary embolism 94044 003 I26.99 xarelto 20 mg qdmonitor respirator y statuswith atypical chest pain would consider CT imaging if symptoms changeto ED for acute decompensa tion [id number] Martinez Rendon MD [facility] on [address] [place] [phone] 04/03/2023 15:42:16 04/06/2023 16:19:22 Atypical chest pain 015158431 R07.89 exam reassuring question underlying neuropathi c painwill start gabapentin 100 mg tid and followmoni tor need for chest CT depending on change in presentati on Septic shock 73303083 R6 5.21 see HPI with shock and endocardit isnafcilli n 2 gm q 4 for 26 days from admitmonit or cbcupdate ID with concernswb c count reassuring Polysubstance abuse 4452 08284 F19.10 methadone 40 mg qdSUDS counselor at facility Pulmonary embolism 80342 003 I26.99 xarelto 20 mg qdmonitor respirator y statuscont inuedsee above [id number] SCOTTIE Chen [facility] on [address] [place] [phone] 04/06/2023 14:52:36 04/13/2023 16:26:47 Septic shock 28890003 R65.21 nafcillin 2 gm q 4 hrs til 04/19/23moni tor cbcf/u with ID s Polysubstance abuse 4452 58413 F19.10 methadone 40 mg qdf/u with methadone clinicSUDs counseling at facility Infective endocarditis of tricuspid valve 820548084 I33.0 hx of TV endocardit is s/p bioprosthe tic TVR complicate d by bioprosthe tic valve stenosispt notes sob intermitte ntly since TVR a couple of years agonow somewhat worse with abd distension discussed with Dr Rendon, will get abd UL, nurse aware and will orderfollo wed by CT surgery and cardiology at [facility] Pulmonary embolism 86902 003 I26.99 xarelto 20 mg qdmonitor resp status, bleeding risk Chronic hepatitis C 1283 26871 B18.2 untreated with resultant cirrhosis of liver with hx etohreferr ed to GI Cirrhosis of liver K74.69 now with possible ascitesabd UL as aboveincre ase spironolac tone to 50 mg qd (was on 25 mg qd)monitor for worsening sxs Anemia 544784565 D50.8 appears due to malnutriti on and iron deficiency monitor cbciron studies prndietary consult prn Congestive heart failure 25186035 I50.22 increased sobspirono lactone 50 mg qd (as above)anoop tor respirator y status and need to titrate [id number] Martinez Rendon MD [facility] on [address] [place] [phone] 04/07/2023 13:38:54 04/14/2023 09:58:52 Abdominal pain 56493584 R10.31 abd discomfort with distention ultrasound pendingCMP in ammonitor LFTs and need for GI referral Atypical chest pain 1025 68861 R07.89 see abovewill increase gabapentin to 200 mg tid and followmoni tor need for chest CT depending on change in presentati on Septic shock 90680255 R6 5.21 see HPI with shock and endocardit isnafcilli n 2 gm q 4 through 71monitor cbcupdate ID with concernswb c count reassuring [id number] SCOTTIE Chen [facility] on [address] [place] [id number] 04/09/2023 08:34:52 04/22/2023 08:32:51 Infective endocarditis of tricuspid valve 041086555 I33.0 hx of TV endocardit is s/p bioprosthe tic TVR complicate d by bioprosthe tic valve stenosispt notes sob intermitte ntly since TVR a couple of years agowaiting for abd UL to be donefollow ed by CT surgery and cardiology at [facility] Cirrhosis of liver 15064 007 K74.69 now with possible ascitesabd UL as abovespiro nolactone 50 mg qdmonitor for worsening sxs Polysubstance abuse 4452 52710 F19.10 methadone 40 mg qddiscusse d with and will not add narcotic in pt with hx of polysubsta nce abuse - pain appears to be chronic in naturef/u with methadone clinicSUDs counseling at facility Septic shock 77213130 R6 5.21 nafcillin 2 gm q 4 hrs til 04/19/23moni tor cbcf/u with ID s Pulmonary embolism 26314 003 I26.99 xarelto 20 mg qdmonitor resp status, bleeding risk Chronic hepatitis C 1283 07168 B18.2 untreated with resultant cirrhosis of liver with hx etohreferr ed to GI Anemia 976185017 D50.8 appears due to malnutriti on and iron deficiency monitor cbciron studies prndietary consult prn Congestive heart failure 00956516 I50.22 stable todayspiro nolactone 50 mg qd (as above)anoop tor respirator y status and need to titrate Abdominal pain 01759601 R10.31 abd discomfort with distention ultrasound pendingCMP in ammonitor LFTs again on 04/13/23 and need for GI referral Atypical chest pain 1025 10329 R07.89 see abovegabap entin 200 mg tid and followmoni tor need for chest CT depending on change in presentati on [id number] Martinez Rendon MD [facility] on [address] [place] [id number] 04/13/2023 15:29:49 04/22/2023 08:58:15 Polysubstance abuse 552500059 F19.10 maintained onmethadon e 40 mg qdwill write for oxycodone 5 mg q 8 prn breakthrou gh painthis will be discontinu ed at time of dischargep atient not to leave facility with oxycodone Infective endocarditis of tricuspid valve 802600423 I33.0 see HPIhx of TV endocardit is s/p bioprosthe tic TVR complicate d by bioprosthe tic valve stenosisco mplete Ab on 04/15 with ID signing off at this time Pulmonary embolism 22215 003 I26.99 xarelto 20 mg qdmonitor respirator y statushold day prior to paracentes is and day of procedure Chronic hepatitis C 1283 59433 B18.2 untreated with resultant cirrhosis of liver with hx etoh and now significan t asciteswil l refer to GI for further workup and evalwill refer to interventi onal radiology for paracentes iss Cirrhosis of liver 007 K74.69 see above [id number] Martinez Rendon MD [facility] on [address] [place] [address] 04/15/2023 13:43:11 04/22/2023 10:39:02 Infective endocarditis of tricuspid valve 497998075 I33.0 see HPIhx of TV endocardit is s/p bioprosthe tic TVR complicate d by bioprosthe tic valve stenosisan tibiotic completeID to set time to remove picc line Pulmonary embolism 99465 003 I26.99 xarelto 20 mg qdmonitor respirator y statushold day prior to paracentes is and day of procedure Polysubstance abuse 4452 78525 F19.10 maintained onmethadon e 40 mg qdoxycodon [...] for paracentes is Restlessne ss and agitation 667247831 R45.1 Patient verbally abusive and patronizin g [...] request psych eval if patient will accept [id number] SCOTTIE Chen [facility] on [address] [place] [phone] 04/23/2023 12:25:55 04/29/2023 07:46:12 Infective endocarditis of tricuspid valve 037172535 I33.0 pt ok to discharge today to homeless shelterhx of TV endocardit is s/p bioprosthe tic TVR complicate d by bioprosthe tic valve stenosisco mpleted Ab on 04/15/23 with ID signing off at this timef/u with cards, pcp Pulmonary embolism 78483 003 I26.99 xarelto 20 mg qd - rx written for #30f/u with pcp Chronic hepatitis C 1283 22335 B18.2 untreated with resultant cirrhosis of liver with hx etoh and now significan t ascitesref erred to GI for further workup and evalpt refused paracentes is when he was sent out to [facility] ED Polysubstance abuse 4452 18375 F19.10 pt received his last dose methadone [...] Member ID Guarantor Name 04/07/2023 1 [place] [facility] Norberto Coriano [id number] Norberto Coriano 04/09/2023 1 [place] [facility] Norberto Coriano [id number] Norberto Coriano 04/13/2023 1 [place] Norberto Coriano [id number] Norberto Coriano 04/15/2023 1 [place] [facility] Norberto Coriano [id number] Norberto Coriano 04/23/2023 1 [place] Norberto Coriano [id number] Norberto Coriano Notes Date Note Type Note [...] requesting increase in gabapentin Martinez Rendon MD [address] [place] [address], [address], [place], [address], [facility] [employer] 04/07/2023 13:48:54 04/09/2023 text/html pt seen today [...] rib and back pain. SCOTTIE Chen [address], [address], [place], [address], [employer] 04/09/2023 14:32:40 04/13/2023 text/html Patient is a [...] with c/o pain Martinez Rendon MD [address], [address], [place], [address], [facility] [employer] 04/13/2023 15:45:02 04/15/2023 text/html Patient is a [...] for theraputic paracentesis. Martinez Rendon MD [address], [address], [place], [address], [facility] 04/15/2023 14:38:05 04/23/2023 text/html pt seen today fo r discharge summary. pt is discharging to a homeless long term. he has completed his antibiotics on 04/15/23 [...] nafcillin to complete course. SCOTTIE Chen [address], [address], [place], [address], [facility] 04/23/2023 13:14:23
--- OUTSIDE RECORDS SUMMARY | 2025-02-07 19:04 | XMS_ITS | Encounter Summary ---
Author Organization [employer] Address [address] [facility] 7t [place] [address] Care Team Providers Care Wood Room Hand Name Role Phone Alba So NP Primary Care Provider [phone] Reason for Visit * Reason Onset Date Comments Hospital Follow-up 09/30/2024 Encounter Details Date Type Department Care Team ([facility] st Contact Info) Description 09/30/2024 Telephone [facility] MEDICINE [address] [place], [place] [phone] Alba So NP [address] [place] [address] Hospital Follow-up Social History Tobacco Use Types [...] from pt requesting a HDF appt. Hospital: [facility] Date of admission: 09/23/24 Discharge date: 09/29/24 Diagnosed: Pneumonia / SOB / Chest pain *Send message to [place] Clinical Care Coordinators documented in this encounter Plan of Treatment Upcoming Encounters Date Type Department Care Team (Late st Contact Info) Description 02/13/2025 2:00 PM EDT Office Visit [facility] MEDICINE [address] [place] [address] Alba So NP [address] [place] [address] documented as of this encounter Visit Diagnoses Not on filedocumented in this encounter Additional Health Concerns Assessment Noted Time PHQ-9 Depression Total Score: 0 06/03/20 23 10:05 AM EDT documented as of this encounter Care Teams Wood Room Hand Relationship Specialty Start Date End Date Alba So NP [address] [place] [address] PCP - General Family Medicine 04/14/24 documented as of this encounter
--- OUTSIDE RECORDS SUMMARY | 2025-02-07 19:04 | XMS_ITS | Encounter Summary ---
Author Organization [employer] Address [address] [facility] 7t [place] [address] Care Team Providers Care Precast Molder Name Role Phone Nirali Lott Primary Care Provider [phone] Alba So NP Primary Care Provider [phone] Reason for Referral * Consultation (Routine) - Closed Specialty Diagnoses / Procedures Referred By Merle calvillo Referred To Contact Hand Surgery Diagnoses Pain in finger of left hand Nirali Lott FNP [address] [place] [address] Phone: tel: fax: [facility] [address] [place] [address] Phone: tel: Referral ID Status Reason Start Date Expiration Date V isits Requested Visits Authorized [id number] Closed Specialty Services Required 12/23/2023 12/22/2024 6 6 Encounter Details Date Type Department Care Team (Late st Contact Info) Description 12/23/2023 Orders Only [facility] MED & PEDS [address] [place], [place] [phone] Nirali Lott FNP [address] [place] [address] Pain in finger of left hand (Primary [...] Description 02/13/2025 2:00 PM EDT Office Visit [facility] MEDICINE [address] [place] [address] Alba So NP [address] [place] [address] Scheduled Referrals Name Type Priority Associated Diagnoses [...] documented as of this encounter Care Teams Precast Molder Relationship Specialty Start Date End Date Nirali Lott FNP [address] [place] [address] PCP - General Family Medicine 07/09/23 04/13/24 Alba So NP [address] [place] [address] PCP - General Family Medicine 04/14/24 documented as of this encounter
--- OUTSIDE RECORDS SUMMARY | 2025-02-07 19:04 | XMS_ITS | Encounter Summary ---
Author Organization [employer] Address [address] [facility] 7t [place] [address] Care Team Providers Care Osteopathy Doctor Name Role Phone Nirali Lott Primary Care Provider [phone] Alba So NP Primary Care Provider [phone] Reason for Visit * Reason Onset Date Comments Hospital Follow-up 04/05/2024 Encounter Details Date Type Department Care Team ([facility] st Contact Info) Description 04/05/2024 Telephone [facility] [address] [place] [address] Nirali Lott FNP [address] [place] [address] Hospital Follow-up Social History Tobacco Use Types [...] with others, in a hotel, in a chcf, living outside on the street, on a [...] from pt requesting a HDF appt. Hospital: [facility] Date of admission: 03/30 Discharge date: 04/01 Diagnosed: Chest Pain documented in this encounter Plan of Treatment Upcoming Encounters Date Type Department Care Team (Late st Contact Info) Description 02/13/2025 2:00 PM EDT Office Visit [facility] [address] [place] [address] Alba So NP [address] [place] [address] documented as of this encounter Visit Diagnoses Not on filedocumented in this encounter Additional Health Concerns Assessment Noted Time PHQ-9 Depression Total Score: 0 06/03/20 23 10:05 AM EDT documented as of this encounter Care Teams Osteopathy Doctor Relationship Specialty Start Date End Date Nirali Lott FNP [address] [place] [address] PCP - General Family Medicine 07/09/23 04/13/24 Alba So NP [address] [place] [address] PCP - General Family Medicine 04/14/24 documented as of this encounter
--- OUTSIDE RECORDS SUMMARY | 2025-02-07 19:04 | XMS_ITS | Encounter Summary ---
Author Organization [facility] Address [address] [facility] 7t [place] [address] Care Team Providers Care Cotton Puller Name Role Phone Jin Mack AGNYani Primary Care Provider Unavail able Nirali LottP Primary Care Provider [phone] Alba So NP Primary Care Provider [phone] Encounter Details Date Type Department Care Team ([facility] Contact Info) Description 06/08/2023 Orders Only [facility] MED [facility] PEDS [address] [place], [place] [phone] Nirali Lott FNP [address] [place] [address] Chronic hepatitis C without hepatic coma (CMS/HCC) [...] Department Care Team (Late Contact Info) Description 02/13/2025 2:00 PM EDT Office Visit [facility] MEDICINE [address] [place] [address] Alba So NP [address] [place] [address] documented as of this encounter Visit Diagnoses Diagnosis Chronic hepatitis C without hepatic coma (CMS/HCC)- Primary documented in this encounter Additional Health Concerns Assessment Noted Time PHQ-9 Depression Total Score: 0 06/03/20 10:05 AM EDT documented as of this encounter Care Teams Cotton Puller Relationship Specialty Start Date End Date Jin Mack AGNP PCP - General Family Medicine 04/24/23 07/08/23 Nirali Lott FNP [address] [place] [address] PCP - General Family Medicine 07/09/23 04/13/24 Alba So NP [address] [place] [address] PCP - General Family Medicine 04/14/24 documented as of this encounter
--- OUTSIDE RECORDS SUMMARY | 2025-02-07 19:04 | XMS_ITS ---
Author Organization [employer] Address [address] [facility] 7t [place] [address] Care Team Providers Care Orthopedic Technician Name Role Phone Alba So NP Primary Care Provider [phone] Complex Status:Outreach In Progress (Enrolling) Start date:01/11/2025 Enrollment reason:ADT Feed Overview ADT- Pt admitted to [facility] on 01/09/25. Case Team Name Relationship Phone Lucy Cervantes RN Registered Nurse(Responsible S taff) Continued Care and Services Coordination
--- OUTSIDE RECORDS SUMMARY | 2025-02-07 19:04 | XMS_ITS | Encounter Summary ---
Author Organization [employer] Address [address] [facility] [address] [place] [address] Care Team Providers Care Compounder Name Role Phone Nirali Lott Primary Care Provider [phone] Alba So NP Primary Care Provider [phone] Reason for Visit * Reason Onset Date Comments PT1 08/05/2023 Encounter Details Date Type Department Care Team ([facility] Contact Info) Description 08/05/2023 Telephone [facility] MED[facility] [address] [place] [address] Nirali Lott FNP [address] [place] [address] PT1 Social History Tobacco Use Types Packs/Day [...] 08/05/2023 1:12 PM EDT PT-1 Request Number [id number] is Pending * Telephone Encounter - Sage Telles - 08/05/2023 12:36 PM EDT Tc from [facility] with [facility] Partner requesting a PT1: Name of facility: [facility] Specialty: Consult possible liver transplant Location: [address] [place] [address] Date: 08/12/2023 Time: 11:00 am fax: n/a wheelchair: no [employer] Supervisor: no All future appt's documented in this encounter Plan of Treatment Upcoming Encounters Date Type Department Care Team (Late st Contact Info) Description 02/13/2025 2:00 PM EDT Office Visit [facility] [address] [place] [address] Alba So NP [address] [place] [address] documented as of this encounter Visit Diagnoses Not on filedocumented in this encounter Additional Health Concerns Assessment Noted Time PHQ-9 Depression Total Score: 0 06/03/20 23 10:05 AM EDT documented as of this encounter Care Teams Compounder Relationship Specialty Start Date End Date Nirali Lott FNP [address] [place] [address] PCP - General Family Medicine 07/09/23 04/13/24 Alba So NP [address] [place] [address] PCP - General Family Medicine 04/14/24 documented as of this encounter
--- OUTSIDE RECORDS SUMMARY | 2025-02-07 19:04 | XMS_ITS | Encounter Summary ---
Author Organization [employer] Address [address] [facility] [address] [place] [address] Care Team Providers Care Electrical Repairer Name Role Phone Nirali Lott Primary Care Provider [phone] Alba So NP Primary Care Provider [phone] Reason for Visit * Reason Onset Date Comments PT1 10/02/2023 Encounter Details Date Type Department Care Team ([facility] Contact Info) Description 10/02/2023 Telephone [facility] MEDICINE [address] [place] [address] Nirali Lott FNP [address] [place] [address] PT1 Social History Tobacco Use Types Packs/Day [...] 10/02/2023 11:00 AM EST PT-1 Request Number [id number] is Pending * Telephone Encounter - Christine Mak - 10/02/2023 10:32 AM EST Tc alanna [facility] with ICP requesting PT1 transportation. Date: 10/20/2022 Time: 10:15 Visits: 12 a year Address: [address] [place] [address] Facility: [facility] Wheel Chair: n/a Location Worker Needed: n/a documented in this encounter Plan of Treatment Upcoming Encounters Date Type Department Care Team (Late st Contact Info) Description 02/13/2025 2:00 PM EDT Office Visit [facility] [address] [place] [address] Alba So NP [address] [place] [address] documented as of this encounter Visit Diagnoses Not on filedocumented in this encounter Additional Health Concerns Assessment Noted Time PHQ-9 Depression Total Score: 0 06/03/20 23 10:05 AM EDT documented as of this encounter Care Teams Electrical Repairer Relationship Specialty Start Date End Date Nirali Lott FNP [address] [place] [address] PCP - General Family Medicine 07/09/23 04/13/24 Alba So NP [address] [place] [address] PCP - General Family Medicine 04/14/24 documented as of this encounter
--- OUTSIDE RECORDS SUMMARY | 2025-02-07 19:04 | XMS_ITS | Encounter Summary ---
Author Organization [employer] Address [address] [facility] [address] [place] [address] Care Team Providers Care Assistant Production Editor Name Role Phone Nirali Lott Primary Care Provider [phone] Alba So NP Primary Care Provider [phone] Encounter Details Date Type Department Care Team (Late st Contact Info) Description 10/27/2023 Orders Only [facility] [address] [place] [address] Nirali Lott FNP [address] [place] [address] Infective endocarditis of tricuspid valve (Primary Dx) [...] t he electric, gas, oil or water [employer] threatened to shut off services in your [...] 02/13/2025 2:00 PM EDT Office Visit [facility] MEDICINE [address] [place] [address] Alba So NP [address] [place] [address] documented as of this encounter Procedures Procedure Name Priority Date/Time Associated Diagnosis Comments CT LIVER 3 PHASE Routine 10/27/2023 4:35 PM EST documented in this encounter Results * CT liver 3 phase (10/27/2023 4:35 PM EST) Anatomical Region Laterality Modality Liver Computed Tomogra phy 10/27/2023 4:35 PM EST Narrative 11/02/2023 11:06 AM EST ? [facility] ?[address] ?[place] [address] ? CT Scan Report ? Signed ? Patient: Norberto Marquez ?MR#: [id number] ? : 1990 ?Acct:[id number] ? Age/Sex: 33 / M ?ADM Date: 10/27/23 ? Loc: HO.CT ? Attending Dr: Randa Chisholm MD ? Ordering Physician: Randa Chisholm MD ?? Date of Service: 10/27/23 ?? Procedure(s): CT liver 3 phase ?? Accession Number(s): [id number] ? cc: Randa Chisholm MD; [facility] ? EXAMINATION: ?? CT ABDOMEN without [...] 1101 ? DD/ 1635 ? TD/TT: ? Sensitized Paper Tester: SS ? Procedure Note Pieter, Jonathan - 11/03/[address] [place] [address] [address] Scan Report Signed Patient: Zully Marquez#: [id number] : 1990Acct:[id number] Age/Sex: 33 / MADM Date: 10/27/23 Loc: HO.CT Attending Dr: Randa Chisholm MD Ordering Physician: Randa Chisholm MD Date of Service: 10/27/23 Procedure(s): CT liver 3 phase Accession Number(s): [id number] cc: Randa Chisholm MD; [facility] EXAMINATION: CT ABDOMEN without and WITH [...] in OV> 11/02/23 1101 DD/ 1635 TD/TT: Sensitized Paper Tester: ELIEZER [facility] External Provider IMG CT PROCEDURES Final Result documented in this encounter Visit Diagnoses Diagnosis Infective endocarditis of tricuspid valve- Primary documented in this encounter Additional Health Concerns Assessment Noted Time PHQ-9 Depression Total Score: 0 06/03/20 23 10:05 AM EDT documented as of this encounter Care Teams Assistant Production Editor Relationship Specialty Start Date End Date Nirali Lott FNP [address] [place] [address] PCP - General Family Medicine 07/09/23 04/13/24 Alba So NP [address] [place] [address] PCP - General Family Medicine 04/14/24 documented as of this encounter
--- NOTE | 2025-02-07 19:15 | PHA.MEDREC ---
Addendum entered by Elder Arana [facility] 02/07/25 19:25: med rec reviewed Original Note: Pharmacy Consult ? Medication Reconciliation Pharmacy has completed the medication reconciliation. Tried to speak with patient, but he kept falling asleep. Patient woke when name was called, but then fell back to sleep. Utilized claims to confirm med list.
[2025-02-07] MEDS: cefTRIAXone sodium 1 GM VIAL IVPUSH (19:20)
--- NOTE | 2025-02-07 19:23 | PC.NURSE ---
assumed care for pt at this time. Pt sleeping in stretcher, arousable to name. VSS, pt denies any pain. Medicated pt per mar. removed pts dinner tray, pt ate about 75%. pts needs met at this time, and call pierce is within reach. plan of care ongoing
[2025-02-07] MEDS: Apixaban 5 MG TABLET PO (20:52)
[2025-02-07] MEDS: 0.9 % Sodium Chloride Flush 3 ML SYRINGE IVFLUSH (21:43)
[2025-02-08] VITALS (7 sets, daily range): BP systolic 102–125; BP diastolic 61–74; PULSE 91–94; RESP 14–20; TEMP 36.2–36.8; O2SAT 93–96
--- NOTE | 2025-02-08 02:00 | HO.SKINPHOTO ---
Location: Left anthony Category: burst varicose vein Stage: Length: Width: Depth: cm Location: Category: Stage: Length: Width: Depth: cm Location: Category: Stage: Length: Width: Depth: cm Location: Category: Stage: Length: Width: Depth: cm Location: Category: Stage: Length: Width: Depth: cm Location: Category: Stage: Length: Width: Depth: cm
[2025-02-08 05:59] LABS: MANUAL DIFF FLAG NO
[2025-02-08 06:04] LABS: Basophils Percent Auto 0.4 % (0-2); Eosinophils Absolute Auto 0.2 X10*3/uL (0.0-0.4); Eosinophils Percent Auto 3.1 % (0-4); Hematocrit 30.6 % (42.0-52.0); Hemoglobin 8.6 g/dl (14.0-18.0); Imm Gran Abs Auto 0.04 X10*3/uL (0.00-0.03); Imm Gran Pct Auto 0.6 % (0.0-0.4); Lymphocytes Percent Auto 13.7 % (20-40); Mean Corpuscular HGB Conc 28.1 g/dl (31.0-36.0); Mean Corpuscular Hemoglobin 19.2 pg (27.0-33.0); Mean Corpuscular Volume 68.2 fL (80.0-98.0); Mean Platelet Volume 9.3 fL (9.4-12.4); Monocytes Absolute Auto 0.9 X10*3/uL (0.1-1.2); Neutrophils Absolute Auto 4.9 x10*3/uL (2.0-8.3); Neutrophils Percent Auto 69.2 % (45-73); Platelet Count 326 X10*3/uL (160-400); Red Blood Count 4.49 X10*6/uL (4.60-5.80); White Blood Count 7.1 X10*3/uL (4.8-10.8)
[2025-02-08 06:14] LABS: INTERNATIONAL NORM RATIO 2.2 (0.9-1.1); Prothrombin Time 25.8 SEC (10.9-12.4)
[2025-02-08 06:16] LABS: Alanine Aminotransferase 25 U/L (0-40); Albumin Level 2.9 g/dL (3.5-5.0); Alkaline Phosphatase 180 U/L (39-117); Anion Gap 12 (12-20); Aspartate Amino Transferase 46 U/L (5-37); Bilirubin Direct 0.5 mg/dL (0.0-0.5); Bilirubin Total 0.7 mg/dL (0.0-1.0); Blood Urea Nitrogen 18 mg/dL (9-16); Calcium 7.9 mg/dL (8.4-10.2); Carbon Dioxide 20 mmol/L (22-29); Chloride 113 mmol/L (96-108); Estimated Glomerular Filt Rate > 60; Glucose Random 97 mg/dL (60-115); Potassium 3.9 mmol/L (3.3-5.1); Sodium 141 mmol/L (135-145); Total Protein 6.1 g/dL (6.5-8.0)
--- NOTE | 2025-02-08 07:31 | P.PNIM_ITS ---
Subjective Subjective Date of Service: 02/08/25 Interval History: Seen in follow up for ascites Interval history: Pt sleeping but arousable. Reports resolution of abd pain. No n/v. No sob, chest pain. Tolerating diet. WBC and LFTs improved. Review of Systems Review of Systems: Yes all other systems are reviewed and are negative Physical Exam 2 Vital Signs: Vital Signs: Last Vital Signs Temp 97.7 F 02/08/25 07:28 Pulse 92 02/08/25 07:28 Resp 18 02/08/25 07:28 BP 111/61 02/08/25 07:28 Pulse Ox 95 02/08/25 07:28 O2 Del Method Room Air 02/08/25 07:28 O2 Flow Rate 93 02/07/25 13:15 BMI result Body Mass Index 21.6 Constitutional - Awake but drowsy, No apparent distress Eyes - PERRLA, EOMI Cardiovascular - S1S2, RRR, No edema Respiratory - Normal lung expansion, Normal respiratory effort, No respiratory distress, CTA bilaterally Gastrointestinal - no ttp. +fluid wave +BS; No rebound or guarding Extremities - no calf tenderness bilaterally, shallow ulceration of the anterion left lower leg with clean wound bed, no purulent drainage. There is also hyperpigmentation of the distal half of the left lower leg Skin - Warm/Dry Neurological - Alert & oriented x3, drowsy Psychological - Appropriate affect Objective Data Active Medications Acetaminophen (Acetaminophen 325 Mg Tablet) 650 mg PO Q6H PRN PRN Reason: Pain, Mild 1-3,fever,headache Apixaban (Apixaban 5 Mg Tablet) 5 mg PO BID [facility] Last Admin: 02/07/25 20:52 Dose: 5 mg Documented By: RASHEEDA Calcium Carbonate (Calcium Carbonate 750 Mg Tab.Chew) 750 mg PO Q4H PRN PRN Reason: Heartburn Ceftriaxone Sodium (Ceftriaxone Sodium 1 Gm Vial) 1 gm IVPUSH Q24H [facility] Last Admin: 02/07/25 19:20 Dose: 1 gm Documented By: RASHEEDA Magnesium Hydroxide (Milk Of Magnesia 30 Ml Oral.Susp) 30 ml PO DAILY PRN PRN Reason: Constipation Melatonin (Melatonin 3 Mg Tablet) 6 mg PO BEDTIME PRN PRN Reason: Insomnia Ondansetron HCl (Ondansetron Hcl 4 Mg/2 Ml Vial) 4 mg IVPUSH Q8H PRN PRN Reason: Nausea and Vomiting Sodium Chloride (0.9 % Sodium Chloride Flush 3 Ml Syringe) 3 ml IVFLUSH QSHIFT [facility] Last Admin: 02/07/25 21:43 Dose: 3 ml Documented By: PATY Labs 02/08/25 05:30 02/08/25 05:30 Labs: Laboratory Results - last 24 hr 02/07/25 02/07/25 02/07/25 09:33 09:34 09:39 MCV 68.6 L MCH 19.1 L MCHC 27.8 L RDW 20.8 H Plt Count 321 MPV 9.3 L Immature Gran % (Auto) 0.5 H Neut % (Auto) 78.6 H Lymph % (Auto) 9.9 L [place] % (Auto) 9.9 Eos % (Auto) 0.6 Baso % (Auto) 0.5 Lymph # (Auto) 1.1 L [place] # (Auto) 1.1 Eos # (Auto) 0.1 Baso # (Auto) 0.1 Abs Immat Gran (auto) 0.06 H Absolute Neuts (auto) 8.9 H Absolute Nucleated RBC 0.000 Nucleated RBC % (auto) 0.0 PT INR VBG pH VBG pCO2 VBG pO2 VBG HCO3 VBG O2 Saturation VBG Base Excess Anion Gap 10 L Estim Creat Clear Calc 117.0 Estimated GFR > 60 Random Glucose 82 Lactic Acid 1.0 Calcium 8.3 L Magnesium 1.6 Total Bilirubin 1.3 H Direct Bilirubin 0.7 H AST 52 H ALT 25 Alkaline Phosphatase 197 H Ammonia 54 Total Creatine Kinase 146 B-Natriuretic Peptide 449 H Total Protein 6.8 Albumin 3.3 L Lipase 8 Urine Color Urine Appearance Urine pH Ur Specific [place] Urine Protein Urine Glucose (UA) Urine Ketones Urine Blood Urine Nitrite Ur Leukocyte Esterase Urine RBC Urine WBC Ur Squamous Epith Cells Urine Bacteria Hyaline Casts Salicylates < 5.0 L Urine Opiates Screen Ur Buprenorphine Scrn Ur Oxycodone Screen Urine Methadone Screen Urine Fentanyl Screen Acetaminophen < 3 Ur Barbiturates Screen Ur Phencyclidine Scrn Ur Amphetamines Screen U Benzodiazepines Scrn Urine Cocaine Screen U Marijuana (THC) Screen Ethyl Alcohol < 10 02/07/25 02/07/25 02/07/25 09:45 13:28 14:10 MCV MCH MCHC RDW Plt Count MPV Immature Gran % (Auto) Neut % (Auto) Lymph % (Auto) [place] % (Auto) Eos % (Auto) Baso % (Auto) Lymph # (Auto) [place] # (Auto) Eos # (Auto) Baso # (Auto) Abs Immat Gran (auto) Absolute Neuts (auto) Absolute Nucleated RBC Nucleated RBC % (auto) PT 22.5 H D INR 1.9 H VBG pH 7.30 L VBG pCO2 49 VBG pO2 35 VBG HCO3 25 VBG O2 Saturation 43.0 VBG Base Excess -1.4 Anion Gap Estim Creat Clear Calc Estimated GFR Random Glucose Lactic Acid Calcium Magnesium Total Bilirubin Direct Bilirubin AST ALT Alkaline Phosphatase Ammonia Total Creatine Kinase B-Natriuretic Peptide Total Protein Albumin Lipase Urine Color Yellow Urine Appearance Clear Urine pH 6.0 Ur Specific [place] >= 1.030 H Urine Protein Trace Urine Glucose (UA) Negative Urine Ketones Negative Urine Blood Small (1+) H Urine Nitrite Negative Ur Leukocyte Esterase Negative Urine RBC 11-20 H Urine WBC 0-5 Ur Squamous Epith Cells 0-2 Urine Bacteria None Seen Hyaline Casts 0-2 Salicylates Urine Opiates Screen POSITIVE H Ur Buprenorphine Scrn Not Detected Ur Oxycodone Screen Not Detected Urine Methadone Screen Positive H Urine Fentanyl Screen POSITIVE H Acetaminophen Ur Barbiturates Screen Not Detected Ur Phencyclidine Scrn Not Detected Ur Amphetamines Screen Not Detected U Benzodiazepines Scrn Not Detected Urine Cocaine Screen POSITIVE H U Marijuana (THC) Screen Not Detected Ethyl Alcohol 02/08/25 05:30 MCV 68.2 L MCH 19.2 L MCHC 28.1 L RDW 21.0 H Plt Count 326 MPV 9.3 L Immature Gran % (Auto) 0.6 H Neut % (Auto) 69.2 Lymph % (Auto) 13.7 L [place] % (Auto) 13.0 H Eos % (Auto) 3.1 Baso % (Auto) 0.4 Lymph # (Auto) 1.0 L [place] # (Auto) 0.9 Eos # (Auto) 0.2 Baso # (Auto) 0.0 Abs Immat Gran (auto) 0.04 H Absolute Neuts (auto) 4.9 Absolute Nucleated RBC 0.000 Nucleated RBC % (auto) 0.0 PT 25.8 H INR 2.2 H VBG pH VBG pCO2 VBG pO2 VBG HCO3 VBG O2 Saturation VBG Base Excess Anion Gap 12 Estim Creat Clear Calc 139.0 Estimated GFR > 60 Random Glucose 97 Lactic Acid Calcium 7.9 L Magnesium Total Bilirubin 0.7 Direct Bilirubin 0.5 AST 46 H ALT 25 Alkaline Phosphatase 180 H Ammonia Total Creatine Kinase B-Natriuretic Peptide Total Protein 6.1 L Albumin 2.9 L Lipase Urine Color Urine Appearance Urine pH Ur Specific [place] Urine Protein Urine Glucose (UA) Urine Ketones Urine Blood Urine Nitrite Ur Leukocyte Esterase Urine RBC Urine WBC Ur Squamous Epith Cells Urine Bacteria Hyaline Casts Salicylates Urine Opiates Screen Ur Buprenorphine Scrn Ur Oxycodone Screen Urine Methadone Screen Urine Fentanyl Screen Acetaminophen Ur Barbiturates Screen Ur Phencyclidine Scrn Ur Amphetamines Screen U Benzodiazepines Scrn Urine Cocaine Screen U Marijuana (THC) Screen Ethyl Alcohol Assessment and Plan (1) Abdominal pain: Status: Acute (2) Ascites: Status: Acute Plan 34-year-old male with a PMH significant for?continuing polysubstance use disorder with IVDU, endocarditis s/p bioprosthetic tricuspid valve replacement complicated by valve stenosis, septic pulmonary emboli and empyema, hx of DVT and PE noncompliant with Xarelto, cardiomyopathy, recurrent bacteremia and endocarditis, untreated chronic hepatitis-C, anemia, and cirrhosis to be observed for ascites requiring paracentesis Decompensated hepatic cirrhosis with ascites CT abdomen/pelvis shows moderate ascites Bedside paracentesis attempted but unsuccessful due to location of ascites. Pt unable to sit for paracentesis. Will reattempt tomorrow to rule out SBP. peritoneal fluid analysis ordered 2 g IV ceftriaxone for empiric tx for sbp LFTs baseline Follow liver function Polysubstance abuse with ongoing IV drug abuse Continue methadone Addiction medicine consult- detox/rehab search ongoing U tox positive for opiates, methadone, fentanyl, cocaine Neg for HIV and Hep B ag. Hep C viral load pending Outpatient follow-up for hepatitis-C treatment Venous ulcer of the left lower extremity No evidence of infection Wound care consult Hx of DVT/PE Hx of non-compliance with anticoagulation Continue Eliquis Chronic iron-deficiency anemia Stable, at baseline Continue iron supplementation Polysubstance use disorder Continue methadone Addiction medicine consult Hepatitis-C Chronic, untreated Encourage outpatient treatment Mood disorder Continue sertraline Full Code DVT Prophylaxis: On Xarelto Patient requires inpatient stay at least 2 midnights for management of acute ascites in decompensated cirrhosis inpatient who is a known IV drug abuser who will require SBP empiric treatment as well as paracentesis with fluid analysis to rule out infection. Quality Stroke Does the patient have a stroke diagnosis?: No VTE Prior VTE?: Yes VTE Risk Level:: Medical - moderate - high VTE Device Contraindication: N/A - Device Ordered VTE Drug Contraindication: Treatment Not Indicated
--- NOTE | 2025-02-08 07:31 | HE.PHANOTE ---
METHADONE CONFIRMATION SHEET PATIENT GETS 115MG FROM [facility]. LAST DOSE 0804 ON 02/07
[2025-02-08 08:32] LABS: HBS Num1 35.74 mIU/mL (0-7.99); HBc Num1 0.12 S/CO (0.00-0.79); HBsAGNum1 0.31 S/CO (0.00-0.99); HIV AB/AG Nonreactive (Nonreactive); HIV Num 1 0.13 S/CO (0.00-0.99); Hepatitis B Core Antibody Nonreactive (Nonreactive); Hepatitis B Surface Antigen Negative (Negative); ~HepC Num1 16.35 S/CO (0.00-0.79); ~Hepatitis B Surface Antibody REACTIVE (Nonreactive); ~Hepatitis C Antibody Reactive (Nonreactive)
[2025-02-08] MEDS: Apixaban 5 MG TABLET PO ×2 (08:59→20:32)
[2025-02-08] MEDS: Magnesium Oxide 400 MG TABLET PO (08:59)
[2025-02-08] MEDS: methADONE HCl 20 MG/2 ML ORAL.CONC 115 MG PO (09:00)
[2025-02-08] MEDS: 0.9 % Sodium Chloride Flush 3 ML SYRINGE IVFLUSH ×3 (09:03→20:34)
--- NOTE | 2025-02-08 10:56 | HO.ADDICTCON ---
History of Present Illness Date of Service: 02/08/2025 Chief Complaint: ascites, abd pain Reason for Consult: DOMINIK Discussed with referring provider: Yes Sources of Information: patient interviewed and chart reviewed HPI Narrative: Patient is a 34 year old male with OUD and history of endocarditis, PE, and hepatitis C. Presented to [facility] ED with abdominal pain, and found to have ascites. Admitted under observation, for possible paracentisis. Patient seen in room 379. He is awake, mostly alert, and engaged in interview. Know to [facility] via previous admissions Reports he is still engaged in treatment for OUD, via [facility] OTP and methadone dose continues at 115mg daily Reports ongoing use, less than a bundle and some cocaine. Methadone has allowed for much less use overall. He is currently unhoused, and has not been sleeping. He is requesting admission to [facility] Past Psychiatric History: Not reviewed Review of Systems Constitutional: Reports as per HPI and Reports difficulty sleeping Gastrointestinal: Denies loose stools and Denies nausea Diagnostics Vital Signs (24Hr): Vital Signs - 24 hr 02/07/25 11:51 02/07/25 13:15 02/07/25 13:55 Temperature 97.8 F 97.6 F 97.8 F Pulse Rate 89 76 86 Respiratory Rate 18 12 12 Blood Pressure 115/86 99/63 99/62 Pulse Oximetry 95 94 93 Oxygen Delivery Method Room Air Room Air Room Air Oxygen Flow Rate 93 02/07/25 15:08 02/07/25 16:53 02/07/25 19:22 Temperature 97.9 F 98.3 F 97.5 F Pulse Rate 85 83 84 Respiratory Rate 11 L 12 11 L Blood Pressure 99/59 L 90/53 L 96/61 Pulse Oximetry 100 95 97 Oxygen Delivery Method Room Air Room Air Room Air Oxygen Flow Rate 02/07/25 21:18 02/08/25 03:30 02/08/25 07:28 Temperature 97.3 F 97.2 F 97.7 F Pulse Rate 82 93 92 Respiratory Rate 16 17 18 Blood Pressure 111/67 102/64 111/61 Pulse Oximetry 92 95 95 Oxygen Delivery Method Room Air Room Air Room Air Oxygen Flow Rate 02/08/25 08:15 02/08/25 08:30 02/08/25 08:40 Temperature Pulse Rate 94 91 93 Respiratory Rate 18 14 18 Blood Pressure 113/69 103/66 116/71 Pulse Oximetry 95 96 95 Oxygen Delivery Method Room Air Room Air Room Air Oxygen Flow Rate 93 BMI result Body Mass Index 21.6 Labs 02/08/25 05:30 02/08/25 05:30 Labs: Laboratory Results - last 48 hr 02/07/25 02/07/25 02/07/25 09:33 09:34 09:39 WBC 11.4 H RBC 4.72 Hgb 9.0 L Hct 32.4 L MCV 68.6 L MCH 19.1 L MCHC 27.8 L RDW 20.8 H Plt Count 321 MPV 9.3 L Immature Gran % (Auto) 0.5 H Neut % (Auto) 78.6 H Lymph % (Auto) 9.9 L [place] % (Auto) 9.9 Eos % (Auto) 0.6 Baso % (Auto) 0.5 Lymph # (Auto) 1.1 L [place] # (Auto) 1.1 Eos # (Auto) 0.1 Baso # (Auto) 0.1 Abs Immat Gran (auto) 0.06 H Absolute Neuts (auto) 8.9 H Absolute Nucleated RBC 0.000 Nucleated RBC % (auto) 0.0 PT INR VBG pH VBG pCO2 VBG pO2 VBG HCO3 VBG O2 Saturation VBG Base Excess Sodium 138 Potassium 4.2 Chloride 110 H Carbon Dioxide 22 Anion Gap 10 L BUN 20 H Creatinine 0.78 Estim Creat Clear Calc 117.0 Estimated GFR > 60 Random Glucose 82 Lactic Acid 1.0 Calcium 8.3 L Magnesium 1.6 Total Bilirubin 1.3 H Direct Bilirubin 0.7 H AST 52 H ALT 25 Alkaline Phosphatase 197 H Ammonia 54 Total Creatine Kinase 146 Troponin I High Sens 5.3 B-Natriuretic Peptide 449 H Total Protein 6.8 Albumin 3.3 L Lipase 8 Urine Color Urine Appearance Urine pH Ur Specific [place] Urine Protein Urine Glucose (UA) Urine Ketones Urine Blood Urine Nitrite Ur Leukocyte Esterase Urine RBC Urine WBC Ur Squamous Epith Cells Urine Bacteria Hyaline Casts Salicylates < 5.0 L Urine Opiates Screen Ur Buprenorphine Scrn Ur Oxycodone Screen Urine Methadone Screen Urine Fentanyl Screen Acetaminophen < 3 Ur Barbiturates Screen Ur Phencyclidine Scrn Ur Amphetamines Screen U Benzodiazepines Scrn Urine Cocaine Screen U Marijuana (THC) Screen Ethyl Alcohol < 10 Hep Bs Antigen Hep Bs Antibody Hep B Core Total Ab Hepatitis C Ab (EIA) HIV 1&2 Ab/P24 Ag 4thGn 02/07/25 02/07/25 02/07/25 09:45 13:28 14:10 WBC RBC Hgb Hct MCV MCH MCHC RDW Plt Count MPV Immature Gran % (Auto) Neut % (Auto) Lymph % (Auto) [place] % (Auto) Eos % (Auto) Baso % (Auto) Lymph # (Auto) [place] # (Auto) Eos # (Auto) Baso # (Auto) Abs Immat Gran (auto) Absolute Neuts (auto) Absolute Nucleated RBC Nucleated RBC % (auto) PT 22.5 H D INR 1.9 H VBG pH 7.30 L VBG pCO2 49 VBG pO2 35 VBG HCO3 25 VBG O2 Saturation 43.0 VBG Base Excess -1.4 Sodium Potassium Chloride Carbon Dioxide Anion Gap BUN Creatinine Estim Creat Clear Calc Estimated GFR Random Glucose Lactic Acid Calcium Magnesium Total Bilirubin Direct Bilirubin AST ALT Alkaline Phosphatase Ammonia Total Creatine Kinase Troponin I High Sens 5.1 B-Natriuretic Peptide Total Protein Albumin Lipase Urine Color Yellow Urine Appearance Clear Urine pH 6.0 Ur Specific [place] >= 1.030 H Urine Protein Trace Urine Glucose (UA) Negative Urine Ketones Negative Urine Blood Small (1+) H Urine Nitrite Negative Ur Leukocyte Esterase Negative Urine RBC 11-20 H Urine WBC 0-5 Ur Squamous Epith Cells 0-2 Urine Bacteria None Seen Hyaline Casts 0-2 Salicylates Urine Opiates Screen POSITIVE H Ur Buprenorphine Scrn Not Detected Ur Oxycodone Screen Not Detected Urine Methadone Screen Positive H Urine Fentanyl Screen POSITIVE H Acetaminophen Ur Barbiturates Screen Not Detected Ur Phencyclidine Scrn Not Detected Ur Amphetamines Screen Not Detected U Benzodiazepines Scrn Not Detected Urine Cocaine Screen POSITIVE H U Marijuana (THC) Screen Not Detected Ethyl Alcohol Hep Bs Antigen Hep Bs Antibody Hep B Core Total Ab Hepatitis C Ab (EIA) HIV 1&2 Ab/P24 Ag 4thGn 02/07/25 02/08/25 18:19 05:30 WBC 7.1 RBC 4.49 L Hgb 8.6 L Hct 30.6 L MCV 68.2 L MCH 19.2 L MCHC 28.1 L RDW 21.0 H Plt Count 326 MPV 9.3 L Immature Gran % (Auto) 0.6 H Neut % (Auto) 69.2 Lymph % (Auto) 13.7 L [place] % (Auto) 13.0 H Eos % (Auto) 3.1 Baso % (Auto) 0.4 Lymph # (Auto) 1.0 L [place] # (Auto) 0.9 Eos # (Auto) 0.2 Baso # (Auto) 0.0 Abs Immat Gran (auto) 0.04 H Absolute Neuts (auto) 4.9 Absolute Nucleated RBC 0.000 Nucleated RBC % (auto) 0.0 PT 25.8 H INR 2.2 H VBG pH VBG pCO2 VBG pO2 VBG HCO3 VBG O2 Saturation VBG Base Excess Sodium 141 Potassium 3.9 Chloride 113 H Carbon Dioxide 20 L Anion Gap 12 BUN 18 H Creatinine 0.67 Estim Creat Clear Calc 139.0 Estimated GFR > 60 Random Glucose 97 Lactic Acid Calcium 7.9 L Magnesium Total Bilirubin 0.7 Direct Bilirubin 0.5 AST 46 H ALT 25 Alkaline Phosphatase 180 H Ammonia Total Creatine Kinase Troponin I High Sens B-Natriuretic Peptide Total Protein 6.1 L Albumin 2.9 L Lipase Urine Color Urine Appearance Urine pH Ur Specific [place] Urine Protein Urine Glucose (UA) Urine Ketones Urine Blood Urine Nitrite Ur Leukocyte Esterase Urine RBC Urine WBC Ur Squamous Epith Cells Urine Bacteria Hyaline Casts Salicylates Urine Opiates Screen Ur Buprenorphine Scrn Ur Oxycodone Screen Urine Methadone Screen Urine Fentanyl Screen Acetaminophen Ur Barbiturates Screen Ur Phencyclidine Scrn Ur Amphetamines Screen U Benzodiazepines Scrn Urine Cocaine Screen U Marijuana (THC) Screen Ethyl Alcohol Hep Bs Antigen Negative Hep Bs Antibody REACTIVE Hep B Core Total Ab Nonreactive Hepatitis C Ab (EIA) Reactive H HIV 1&2 Ab/P24 Ag 4thGn Nonreactive Imaging Radiology Impressions: ITS Impressions Abdomen/Pelvis CT 02/07/25 10:46 IMPRESSION: Moderate amount of ascites. Mild enteritis, degenerative loops. Concerning hepatocellular disease. Cirrhosis cannot be excluded. Cardiomegaly. Coronary artery disease and atherosclerosis disease. Fleischner guidelines were followed. Electronically signed by: Rito Hernnadez MD 02/07/2025 11:38 AM EDT RP Abdomen Ultrasound 02/08/25 08:15 IMPRESSION: Unsuccessful ultrasound-guided paracentesis. Electronically signed by: Ganesh Redd MD 02/08/2025 09:37 AM EDT RP Mental Status Exam Mental Status Exam Patient Appearance: Unkempt Level of Consciousness: Awake and Appropriate Patient Behavior: Appropriate Affect Description: Calm Speech Pattern: Clear Hallucinations: None Thought Process: Intact Medications Medications Current Medications Acetaminophen (Acetaminophen 325 Mg Tablet) 650 mg PO Q6H PRN PRN Reason: Pain, Mild 1-3,fever,headache Albuterol Sulfate (Albuterol Sulfate 90 Mcg 8 Gm Inhaler) 2 puff INHALE Q4H PRN PRN Reason: wheezing Apixaban (Apixaban 5 Mg Tablet) 5 mg PO BID [facility] Last Admin: 02/08/25 08:59 Dose: 5 mg Calcium Carbonate (Calcium Carbonate 750 Mg Tab.Chew) 750 mg PO Q4H PRN PRN Reason: Heartburn Ceftriaxone Sodium (Ceftriaxone Sodium 1 Gm Vial) 1 gm IVPUSH Q24H [facility] Last Admin: 02/07/25 19:20 Dose: 1 gm Magnesium Hydroxide (Milk Of Magnesia 30 Ml Oral.Susp) 30 ml PO DAILY PRN PRN Reason: Constipation Magnesium Oxide (Magnesium Oxide 400 Mg Tablet) 400 mg PO DAILY [facility] Last Admin: 02/08/25 08:59 Dose: 400 mg Melatonin (Melatonin 3 Mg Tablet) 6 mg PO BEDTIME PRN PRN Reason: Insomnia Methadone HCl (Methadone Hcl 20 Mg/2 Ml Oral.Conc) 115 mg PO DAILY [facility] Last Admin: 02/08/25 09:00 Dose: 115 mg Ondansetron HCl (Ondansetron Hcl 4 Mg/2 Ml Vial) 4 mg IVPUSH Q8H PRN PRN Reason: Nausea and Vomiting Sodium Chloride (0.9 % Sodium Chloride Flush 3 Ml Syringe) 3 ml IVFLUSH QSHIFT [facility] Last Admin: 02/08/25 09:03 Dose: 3 ml Allergies Allergies Allergy/AdvReac Type Severity Reaction Status Date / Time No Known Allergies Allergy Verified 02/07/25 08:45 [No Known Allergies*] Assessment & Plan Assessment & Plan (1) Opioid use disorder, severe, dependence: Status: Acute Code(s): F11.20 - Opioid dependence, uncomplicated Assessment and Plan: methadone dose verified and administered--connected to [facility] at this time, medically cleared, 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 PMFSH Past Medical History Medical History Rhabdomyolysis Anemia LUCERO (acute kidney injury) Polysubstance abuse Opioid use disorder Opioid use disorder, severe, dependence Substance abuse MSSA bacteremia Bacteremia Bacteremia Right heart failure Steatosis, liver Tricuspid valve stenosis Anasarca HCV (hepatitis C virus) Endocarditis Pulmonary embolism Surgical History Surgical History History of tricuspid valve replacement with bioprosthetic valve Social History Social History Household Members: Other Household Members Other:: [facility] Housing: Homeless Do you presently have visiting nurse or other home services: No Unable to assess alcohol history related to: Unknown Alcohol intake: never Patient Tobacco Use Status: Current everyday Tobacco user Tobacco use type: Cigarette Cigarette Packs Per Day: 0.5 Cigarettes Per Day: 10.0 Years Smoked: 10 Smoked in Last 30 Days: Yes Patient Interested in Nicotine Replacement: Yes Patient Given Instructions on How to Stop Smoking: No Second Hand Smoke Exposure: No Use of substances other than those prescribed or required for medical reasons: Yes Substance Use Type: Methamphetamine Substance Use Frequency: Daily Last Used Substance: Just Prior to Admission Currently Displaying Signs/Symptoms of Drug Intoxication Withdrawal: No Any prior treatment program specific to substance use: Yes Have you been hit, kicked, punched, or otherwise hurt by someone within the past year? If so, by whom?: No Do you feel safe in your current relationship?: Yes Is there a partner from a previous relationship who is making you feel unsafe now?: No Are you made to feel afraid or neglected: No Advance Directives: Yes Advance Directives on File: Yes Advance Directives Date on File: 04/16/21 Do you have a plan to hurt others: No Plan Recently lost weight without trying: No Nutrition Risks: No Nutritional Risk Poor oral hygiene: Yes service: No Current occupational status: unemployed
--- NOTE | 2025-02-08 11:30 | MHC.RECOVRN ---
Addendum entered by Shayy Avila 02/08/25 15:21: [facility] denied pt due to hx of DVT and noncompliance with medication, untreated chronic HCV, and cirrhosis with moderate ascites. [facility] has denied pt today due to concerns of sedation and cirrhosis with moderate ascites. [facility] willing to reconsider pt tomorrow. Discussed medical respite with pt, pt agreeable to referral. Referral has been sent to [facility] in [place]. Addendum entered by Shayy Avila 02/08/25 12:24: [facility] denied pt due to medical acuity. Original Note: Pts referral sent to [facility], [facility], and [facility]. Awaiting notification of acceptance/denial.
--- NOTE | 2025-02-08 17:24 | HO.WOUND ---
Wound Consult: Initial 34yr old? male admitted to [facility] on 02/07/25 - See progress notes and H&P for detailed history.? Wound consult placed for Left Lower Leg wound PA.? Patient agreeable to assessment and photo documentation, patient was very sleepy while at bedside was arousable but quickly returned to sleep. He was resistive to dressing change at this time. Left Lower Leg Etiology: ??Ulceration - unclear etiology Present on Admission Measurements:4cm x 3cm x 0.3cm Wound Bed: pale pink moist wound bed Drainage / Odor: yellow drainage noted on dressing Edges: ? irregular Beckie wound: ?dark hyperpigmentation No Induration, Fluctuance or Warmth noted Pain: pain reported Goals of Treatment: ? Durafiber for moisture management Recommendations: 1. Turn and Reposition every 2 hours and as needed for patient comfort.? Use pillows or wedges to support off loading positions. 2. Off Load all bony prominences with use of pillows and heel boots if needed.? Apply Preventative foams where needed. ? 3. Monitor for incontinence and moisture control, use barrier creams when needed for prevention and treatment. 4. Provide adequate and supplemental nutrition.? 5. When applicable maintain blood glucose levels per Providers order. Left Lower Leg - Cleanse with NS moist gauze, pat dry. Apply skin prep to periwound. Cover wound bed with Durafiber AG followed by dry gauze dressing. Change ever other day. Re-consult wound care Nurse for wound deterioration or wound changes.
[2025-02-08] MEDS: cefTRIAXone sodium 2 GM VIAL IVPUSH (18:09)
[2025-02-09 03:18] VITALS: BP 116/76; PULSE 100; RESP 20; TEMP 37.1; O2SAT 94
[2025-02-09 05:37] LABS: MANUAL DIFF FLAG NO
[2025-02-09 05:43] LABS: Basophils Percent Auto 0.6 % (0-2); Eosinophils Absolute Auto 0.3 X10*3/uL (0.0-0.4); Eosinophils Percent Auto 4.2 % (0-4); Hematocrit 29.9 % (42.0-52.0); Hemoglobin 8.3 g/dl (14.0-18.0); Imm Gran Abs Auto 0.05 X10*3/uL (0.00-0.03); Imm Gran Pct Auto 0.7 % (0.0-0.4); Lymphocytes Absolute Auto 1.5 X10*3/uL (1.2-4.9); Lymphocytes Percent Auto 21.5 % (20-40); Mean Corpuscular HGB Conc 27.8 g/dl (31.0-36.0); Mean Corpuscular Hemoglobin 19.2 pg (27.0-33.0); Mean Corpuscular Volume 69.1 fL (80.0-98.0); Mean Platelet Volume 9.6 fL (9.4-12.4); Monocytes Absolute Auto 0.9 X10*3/uL (0.1-1.2); Monocytes Percent Auto 13.5 % (2-11); Neutrophils Absolute Auto 4.1 x10*3/uL (2.0-8.3); Neutrophils Percent Auto 59.5 % (45-73); Platelet Count 267 X10*3/uL (160-400); Red Blood Count 4.33 X10*6/uL (4.60-5.80); Red Cell Distribution Width 21.1 % (11.0-16.0); White Blood Count 6.9 X10*3/uL (4.8-10.8)
[2025-02-09 06:03] LABS: Alanine Aminotransferase 17 U/L (0-40); Albumin Level 2.8 g/dL (3.5-5.0); Alkaline Phosphatase 200 U/L (39-117); Anion Gap 11 (12-20); Aspartate Amino Transferase 35 U/L (5-37); Bilirubin Direct 0.3 mg/dL (0.0-0.5); Bilirubin Total 0.6 mg/dL (0.0-1.0); Blood Urea Nitrogen 15 mg/dL (9-16); Calcium 8.1 mg/dL (8.4-10.2); Carbon Dioxide 21 mmol/L (22-29); Chloride 112 mmol/L (96-108); Estimated Glomerular Filt Rate > 60; Glucose Random 98 mg/dL (60-115); Potassium 3.7 mmol/L (3.3-5.1); Sodium 140 mmol/L (135-145); Total Protein 6.1 g/dL (6.5-8.0)
[2025-02-09] MEDS: cefTRIAXone sodium 2 GM VIAL IVPUSH (07:04)
[2025-02-09 07:56] VITALS: BP 120/72; PULSE 100; RESP 12; TEMP 36.8; O2SAT 96
--- NOTE | 2025-02-09 08:30 | MHC.RECOVRN ---
Pt accepted to [facility], however, unsure of bed availability today. Intake at [facility] informed t/w they will have the information around 10AM. T/w to follow up.
[2025-02-09] MEDS: Apixaban 5 MG TABLET PO (09:12)
[2025-02-09] MEDS: Magnesium Oxide 400 MG TABLET PO (09:12)
[2025-02-09] MEDS: 0.9 % Sodium Chloride Flush 3 ML SYRINGE IVFLUSH (09:13)
[2025-02-09] MEDS: methADONE HCl 20 MG/2 ML ORAL.CONC 115 MG PO (09:39)
--- NOTE | 2025-02-09 10:37 | MHC.RECOVRN ---
Pt has been accepted to [facility] for 3PM. Will be transported via Lyft. Mart, NABEEL, and Tami Luna APRN, aware.
--- NOTE | 2025-02-09 10:53 | MHC.CM.PN ---
Addendum entered by Maribel Tidwell 02/09/25 12:33: PT WILL DC TO [facility] TODAY ARRANGED BY CLINICAL PROGRAM DIRECTOR Original Note: PT IS HOMELESS, HE IS INDEPENDENT WITH CARE PT IS ACTIVE WITH [facility] FOR METHADONE AND USES A WALKER TO AMBULATE. PCP: JEFFREY BURROUGHS HCP ON FILE DCP TBD: RETIREMENT VS RECOVERY REFERRAL/[facility] TBD BY DISPOSITION
--- NOTE | 2025-02-09 11:33 | PM.DS ---
DS: Providers Provider Date of Service: 02/09/25 Date of admission: 02/08/25 17:30 Date of discharge: 02/09/25 Primary care physician: Magan Martini MD Consults: 02/07/25 17:20 Addiction Medicine Provider Routine Consulting Provider: Addiction Covering Reason for consultation: IVDA, desires detox Consult to Wound Care Routine Reason for consultation: wound anterior LLE 02/07/25 21:46 Consult to Wound Care Routine Reason for consultation: wound to left lower leg Has provider been notified: No 02/08/25 08:53 Inpt - Recovery Team Routine Comment: Reason for consultation: DOMINIK eval Attending physician on discharge: Joel Mariee Discharging clinician: Nighat May DS: Diagnosis Discharge Diagnosis (1) Abdominal pain: Status: Acute (2) Ascites: Status: Acute DS: Summary Hospital Course Hospital Course: From H&P on the day of admission 34-year-old male with a PMH significant for?continuing polysubstance use disorder with IVDU, endocarditis s/p bioprosthetic tricuspid valve replacement complicated by valve stenosis, septic pulmonary emboli and empyema, hx of DVT and PE noncompliant with Xarelto, cardiomyopathy, recurrent bacteremia and endocarditis, untreated chronic hepatitis-C, anemia, and hepatic cirrhosis presented to the ED from methadone clinic due to diffuse severe abdominal pain that started this morning. He denies any fevers, chills, nausea, vomiting, diarrhea, melena, hematochezia, urinary symptoms, shortness of breath, chest pain. He reports ongoing IV drug abuse, last use about 3 hours prior to arrival. He reports noncompliance with his medications with the exception of methadone. He reports he has never undergone paracentesis per his report. In the ED, blood pressure soft, vitals otherwise stable. There is a leukocytosis of 11.4. Renal function baseline, electrolyte levels normal except for chloride 110. Total bilirubin 1.3, direct bilirubin 0.7, AST 52, ALT 25. Troponins flat. BNP 449. CT abdomen/pelvis showed moderate amount of ascites with mild enteritis as well as cirrhosis. An attempt torus paracentesis was made at bedside but due to the mild amount of fluid noted around the right mid quadrant it was deemed to be too close to liver and recommendation was to have this performed by IR who was not able to accommodate the paracentesis today. Of note, the patient does desire sobriety with detox/rehab. He states that if he returns to the streets, I am going to ? Decompensated hepatic cirrhosis with ascites CT abdomen/pelvis shows moderate ascites. Bedside paracentesis attempted but unsuccessful due to location of ascites. patient declined repeat attempt. Empirically treated for SBP. Afebrile, white blood cell count 11.4 on admission, resolved. Complete 2 more days of oral antibiotics for possible SBP although overall suspicion. abdominal pain resolved, tolerating regular diet. LFTs improved, alkp hos remains elevated (chronic). Tired and sleeping intermittently, but easily arousable to verbal stimuli. No confusion, no asterixis on exam, pt reports not sleeping for days. Polysubstance abuse with ongoing IV drug abuse Continue methadone. U tox positive for opiates, methadone, fentanyl, cocaine Neg for HIV and Hep B ag. Hep C viral load pending. Outpatient follow-up for hepatitis-C treatment. Seen by addiction Medicine, has been accepted by [facility] and will be discharged and will go via Lyft. Venous ulcer of the left lower extremity No evidence of infection. seen by wound care recommend: Cleanse with NS moist gauze, pat dry. Apply skin prep to periwound. Cover wound bed with Durafiber AG followed by dry gauze dressing. Change ever other day Hx of DVT/PE Hx of non-compliance with anticoagulation. Continued on Eliquis Chronic iron-deficiency anemia. Stable, at baseline. Time Attestation Discharge Coordination Time (in mins): 35 Quality: Safe Use of Opioids Does Pt have an Active Cancer Diagnosis on the Problem List?: No Quality: Stroke Does the patient have a stroke diagnosis?: No Physical Exam Vital Signs: Vital Signs: Last Vital Signs Temp 98.3 F 02/09/25 07:56 Pulse 100 02/09/25 07:56 Resp 12 02/09/25 07:56 BP 120/72 02/09/25 07:56 Pulse Ox 96 02/09/25 07:56 O2 Del Method Room Air 02/09/25 07:56 O2 Flow Rate 93 02/08/25 08:40 BMI result Body Mass Index 21.6 Const: General: alert and awake Nutritional Appearance: average body habitus Orientation/consciousness: patient oriented x3 Resp: Effort & Inspection: normal respiratory effort, able to speak in complete sentences, no respiratory distress and no use of accessory muscles Cardio: Rate: regular rate GI: Other: softly distended Palpation (GI): Soft to palpation and nontender Skin: Other: left anterior anthony with clean dry dressing Neuro: General: patient oriented x3 and moves all extremities DS: Data Data Completed and Pending Completed studies during hospitalization [Text1]: Procedures Detoxification Services for Substance Abuse Treatment (11/18/21) Insertion of Endotracheal Airway into Trachea, Via Natural or Artificial Opening (03/03/23) Insertion of Infusion Device into Left Basilic Vein, Percutaneous Approach (03/16/23) Insertion of Infusion Device into Superior Vena Cava, Percutaneous Approach (03/03/23) Introduction of Vasopressor into Central Vein, Percutaneous Approach (03/03/23) Respiratory Ventilation, Greater than 96 Consecutive Hours (03/03/23) Ultrasonography of Superior Vena Cava, Guidance (03/03/23) Labs on day of discharge: Laboratory Results - last 24 hr 02/09/25 05:20 WBC 6.9 RBC 4.33 L Hgb 8.3 L Hct 29.9 L MCV 69.1 L MCH 19.2 L MCHC 27.8 L RDW 21.1 H Plt Count 267 MPV 9.6 Immature Gran % (Auto) 0.7 H Neut % (Auto) 59.5 Lymph % (Auto) 21.5 Smith % (Auto) 13.5 H Eos % (Auto) 4.2 H Baso % (Auto) 0.6 Lymph # (Auto) 1.5 [place] # (Auto) 0.9 Eos # (Auto) 0.3 Baso # (Auto) 0.0 Abs Immat Gran (auto) 0.05 H Absolute Neuts (auto) 4.1 Absolute Nucleated RBC 0.000 Nucleated RBC % (auto) 0.0 Sodium 140 Potassium 3.7 Chloride 112 H Carbon Dioxide 21 L Anion Gap 11 L BUN 15 Creatinine 0.67 Estim Creat Clear Calc 139.0 Estimated GFR > 60 Random Glucose 98 Calcium 8.1 L Total Bilirubin 0.6 Direct Bilirubin 0.3 AST 35 ALT 17 Alkaline Phosphatase 200 H Total Protein 6.1 L Albumin 2.8 L Preliminary micro results at discharge 02/07/25 09:34 Blood Culture - Preliminary Blood - Venous No growth after 24 hours. 02/07/25 09:34 Blood Culture - Preliminary Blood - Venous No growth after 24 hours. Discharge Plan Discharge Anticipated Discharge Date/Time: 02/09/25 01:30 Patient Disposition: Xfer Other Discharge Diagnosis: Polysubstance use Abdominal pain Cirrhosis with ascites Referrals: Magan Martini MD [Primary Care Provider] - 1 Week Discharge Medications: New sulfamethoxazole-trimethoprim [Bactrim DS] 800-160 mg tablet 1 tab PO DAILY 2 Days Qty: 2 0RF Continued methadone [Methadone Intensol] 10 mg/mL Concentrate 115 mg PO DAILY ProAir RespiClick 90 mcg/actuation aerosol powdr breath activated 2 inh INHALATION Q4-6H PRN (Reason: wheezing) Eliquis 5 mg tablet 5 mg PO BID 30 Days Qty: 60 0RF magnesium oxide 400 mg magnesium Tablet 400 mg PO DAILY Discharge Orders: Discharge Order (Routine); Ordered 02/09/25 Ordered By: Nighat May Activity on Discharge: As tolerated Stand Alone Forms: Patient Portal Discharge page Print Language: Togolese Care Plan Goals: See below Health Concerns: Abdominal pain Possible SBP Polysubstance use Left leg venous wound Plan of Treatment: Complete 2 more days of empiric antibiotics for possible SBP [facility] Continue methadone Left leg wound-wound care :Cleanse with NS moist gauze, pat dry. Apply skin prep to periwound. Cover wound bed with Durafiber AG followed by dry gauze dressing. Change ever other day. [id number]. Recommend outpatient follow-up with GI for mangement Assessment: See discharge summary Discharge Date/Time: 02/09/25 14:16
[2025-02-09 20:32] LABS: HepC Viral Load 501000 IU/mL (NOT DETECTED)
== END 2025-02-09 14:16 | disposition other institution (70) ==
LOC: HO.ED 17:22 → HO.EDOVER 17:59 → HO.S3 19:32
PROVIDERS: Physician Assistant Medical; Radiology Diagnostic Radiology; Admitting Provider Physician Assistant; Emergency Provider Emergency Medicine; PCP Internal Medicine; Visit Provider Physician Assistant Medical
DX: K74.69 Other cirrhosis of liver (principal); R18.8 Other ascites; L97.829 Non-pressure chronic ulcer of other part of left lower leg with unspecified severity; F11.20 Opioid dependence, uncomplicated; D50.9 Iron deficiency anemia, unspecified; B18.2 Chronic viral hepatitis C; F17.210 Nicotine dependence, cigarettes, uncomplicated; Z71.6 Tobacco abuse counseling; Z79.01 Long term (current) use of anticoagulants; Z95.2 Presence of prosthetic heart valve; Z86.711 Personal history of pulmonary embolism; Z86.718 Personal history of other venous thrombosis and embolism; Z91.148 Patient's other noncompliance with medication regimen for other reason; Z79.899 Other long term (current) drug therapy
CPT/HCPCS: 36415; 74177; 76705; 80048; 80053; 80076; 80143; 80179; 80307; 81001; 82140; 82248; 82550; 82803; 83605; 83690; 83735; 83880; 84484; 85025; 85610; 86704; 86706; 86803; 87040; 87340; 87389; 87522; 93005; 99285; J0131; J0696; J2405; J2543; J3371; Q9967; S9485

== ENCOUNTER → 2025-02-07 09:16 | Outpatient (BNV) | payer MEDICAID, SELFPAY | PROVIDERS: Emergency Provider Emergency Medicine; Visit Provider Radiology Diagnostic Radiology | DX: R18.8 Other ascites (principal); I51.7 Cardiomegaly; I25.10 Atherosclerotic heart disease of native coronary artery without angina pectoris | CPT/HCPCS: 74177 ==

== ENCOUNTER → 2025-02-07 09:22 | Outpatient (BNV) | payer MEDICAID, SELFPAY | PROVIDERS: Emergency Provider Emergency Medicine; Visit Provider Internal Medicine | DX: I45.10 Unspecified right bundle-branch block (principal) | CPT/HCPCS: 93010 ==

== ENCOUNTER 2025-02-07 17:20 | Outpatient (BNV) | payer MEDICAID, SELFPAY | END 2025-02-08 08:15 | PROVIDERS: Admitting Provider Physician Assistant; Emergency Provider Emergency Medicine; Visit Provider Radiology Diagnostic Radiology | DX: R18.8 Other ascites (principal) | CPT/HCPCS: 49083 ==

== ENCOUNTER → 2025-02-07 17:20 | Outpatient (BNV) | payer MEDICAID, SELFPAY | PROVIDERS: Admitting Provider Physician Assistant; Emergency Provider Emergency Medicine; Visit Provider Physician Assistant | DX: S81.802A Unspecified open wound, left lower leg, initial encounter (principal); R10.9 Unspecified abdominal pain | CPT/HCPCS: 99223; 99232; 99239 ==

== ENCOUNTER → 2025-02-07 17:20 | Outpatient (BNV) | payer MEDICAID, SELFPAY | PROVIDERS: Admitting Provider Physician Assistant; Emergency Provider Emergency Medicine; Visit Provider Nurse Practitioner Psychiatric/Mental Health | DX: F11.20 Opioid dependence, uncomplicated (principal) | CPT/HCPCS: 99222 ==

== ENCOUNTER 2025-02-25 13:42 | Emergency (ER) | payer MEDICAID, SELFPAY ==
[2025-02-25 14:00] VITALS: BP 135/97; PULSE 119; RESP 20; TEMP 36.7; O2SAT 95; BMI 24.6
[2025-02-25 14:03] VITALS: BP 131/72; PULSE 106; RESP 24; O2SAT 95
--- NOTE | 2025-02-25 14:12 | PC.NURSE ---
Patient is a 34-year-old male with a PMH significant for?continuing polysubstance use disorder with IVDU, endocarditis s/p bioprosthetic tricuspid valve replacement complicated by valve stenosis, septic pulmonary emboli and empyema, hx of DVT and PE noncompliant with Xarelto, cardiomyopathy, recurrent bacteremia and endocarditis, untreated chronic hepatitis-C, anemia, and hepatic cirrhosis who present with a bleeding varicose vein to left foot. Dressing applied by EMS. Patient admits to using heroin/cocaine 30 minutes prior to arrival. Patient alert, restless with bizarre behavior noted. Patient extremely unkempt. Public safety notified to evaluate patients belongings. Patient sl tachycardic in the low 100's. Respirations even and non-labored. Abdomen sl firm and appear to have some ascitis. Non-tender upon palpation. Positive pedal pulses with no edema. Dressing noted to left lower leg and foot.
--- NOTE | 2025-02-25 14:24 | ED_ITS ---
HPI - General Adult General Chief complaint: General Medical Stated complaint: PAIN IN L LEG Time Seen by Provider: 02/25/25 14:12 Source: patient and EMS Mode of arrival: EMS Limitations: other (Acutely intoxicated on substances) History of Present Illness ED Provider: SCOTTIE ROCHE PA-C HPI narrative: 34-year-old male with past medical history significant for polysubstance use disorder, valvular heart disease, endocarditis, hepatitis-C, varicose veins, PE on Eliquis presents to the ED today via EMS for evaluation of bleeding varicose vein to left lower extremity. On arrival, patient acutely high on substances. History limited. Per EMS, patient admitted to injecting heroin and cocaine 30 minutes prior to arrival. He denies injecting anything into the area of concern today. Dressing applied in field. Related Data Home Medications ?Medication ?Instructions ?Recorded ?Confirmed methadone 10 mg/mL oral 115 mg PO DAILY 09/13/24 02/08/25 concentrate (Methadone Intensol) magnesium oxide 400 mg PO DAILY 10/10/24 02/07/25 albuterol sulfate 90 mcg/actuation 2 inh inhalation Q4-6H PRN wheezing 02/07/25 02/07/25 breath activated powder inhaler (ProAir RespiClick) Previous Rx's ?Medication ?Instructions ?Recorded apixaban 5 mg tablet (Eliquis) 5 mg PO BID 30 days #60 tabs 02/09/25 sulfamethoxazole 800 1 tab PO DAILY 2 days #2 tabs 02/09/25 mg-trimethoprim 160 mg tablet (Bactrim DS) Allergies Allergy/AdvReac Type Severity Reaction Status Date / Time No Known Allergies Allergy Verified 02/25/25 14:02 [No Known Allergies*] Review of Systems 2 Review of Systems: Yes all other systems are reviewed and are negative PMFSH Past Medical History Attestation statement: The following information was validated with the patient. Source: old records reviewed and nursing notes reviewed Medical History Rhabdomyolysis Anemia LUCERO (acute kidney injury) Polysubstance abuse Opioid use disorder Opioid use disorder, severe, dependence Substance abuse MSSA bacteremia Bacteremia Bacteremia Right heart failure Steatosis, liver Tricuspid valve stenosis Anasarca HCV (hepatitis C virus) Endocarditis Pulmonary embolism Surgical History History of tricuspid valve replacement with bioprosthetic valve Social History Social History Household Members: Other Household Members Other:: alf Housing: Homeless Do you presently have visiting nurse or other home services: No Unable to assess alcohol history related to: Unknown Alcohol intake: never Patient Tobacco Use Status: Current everyday Tobacco user Tobacco use type: Cigarette Cigarette Packs Per Day: 0.5 Cigarettes Per Day: 10.0 Years Smoked: 10 Second Hand Smoke Exposure: No Substance Use Type: Crack/Cocaine, Heroin and IV Drugs Advance Directives: Yes Advance Directives on File: Yes Advance Directives Date on File: 04/16/21 service: No Current occupational status: unemployed Physical Exam ED Vital Signs: Vital Signs - 24 hr 02/25/25 14:00 02/25/25 14:03 02/25/25 17:44 Temperature 98.0 F Pulse Rate 119 H 106 H 84 Respiratory Rate 20 24 H 14 Blood Pressure 135/97 H 131/72 116/71 Pulse Oximetry 95 95 96 Oxygen Delivery Method Room Air Room Air 02/25/25 20:00 02/25/25 23:22 Temperature 98.0 F 98.0 F Pulse Rate 97 97 Respiratory Rate 18 18 Blood Pressure 114/75 114/75 Pulse Oximetry 97 97 Oxygen Delivery Method BMI result Body Mass Index 24.6 Afebrile. Tachycardic to 119 beats per minute. Mildly hypertensive to 135/97 mmHg. Not hypoxic General: Restless, appears acutely high on substances, unkempt, disheveled Skin: see image below. small, 1 cm linear laceration noted to left medial malleolus, bleeding controlled. no pulsation. multiple varicocities noted to LLE w/ chronic wound to left anthony without evidence of active infection. Head: Normocephalic, atraumatic. EENT: Hearing is intact b/l. Conjunctiva clear. Sclera is anicteric. Neck: Supple without LAD. FROM. Trachea midline.? Cardiac: Chest wall symmetric. RRR. Lungs: Normal respiratory effort without accessory muscle use. CTA bilaterally? Ext: see image above Neuro: AOx3. Normal speech. CN 2-12 grossly intact. No saddle anesthesia. Sensation intact to light touch. NV intact distally. Ambulating with steady gait. Psych: Appropriate mood and affect. Responds appropriately to questions. Course Course Course Narrative: On my initial evaluation, bleeding controlled. There is a small superficial opening along varicosity just proximal to left medial malleolus with dried blood surrounding the area however no active bleeding noted. I tried to express blood with palpation however there was nothing to express. Bleeding controlled at this time. no sutures warranted. Dermabond applied to area with ale wrap. Patient tolerated well. > patient acutely high on substances. screening labs/ UA/ UDS ordered CBC without leukocytosis or left shift. Microcytic anemia, H&H appears to be stable when compared to priors however has been down trending. Patient is not actively bleeding at this time. Chemistry without acute electrolyte abnormality requiring intervention. Slight bump in BUN to 29, normal creatinine. Will treat with 1 L of IV fluids. Liver function appears to be around baseline. UA/UDS pending. Anticipate discharge home once clinically sober. Patient is stable at the end of my shift. Sign out given to Brenda COLE pending re-eval and disposition. Reevaluation(s) Reevaluation #1: The patient is awake now eating drinking complaining that we did not get him food, I relayed to him that he has been passed out for the bulk of the day, he is ready for discharge Time: 23:05 Medications Administered Discontinued Medications Generic Name Dose Route Start Last Admin Trade Name Freq PRN Reason Stop Dose Admin Sodium Chloride 1,000 mls @ 999 mls/hr 02/25/25 17:45 02/25/25 19:30 Ns IV 02/25/25 18:45 Infused .Q1H1M [facility] Infusion Procedures Laceration Laceration 1: Site: lower extremity Side (If applicable): left Size (cm): 1 Description: linear Depth: simple, single layer Skin layer closed with: other (dermabond) Medical Decision Making Medical Decision Making MDM Narrative: 34-year-old male with past medical history significant for polysubstance use disorder, valvular heart disease, endocarditis, hepatitis-C, varicose veins, PE on Eliquis presents to the ED today via EMS for evaluation of bleeding varicose vein to left lower extremity. On arrival, patient disheveled, unkempt, restless on stretcher, appears acutely high on substances, arousable to verbal stimuli - no narcan warranted. on exam of LLE, there is a small, 1 cm linear laceration noted to left medial malleolus, bleeding controlled. no pulsation. multiple varicocities noted to LLE w/ chronic wound to left anthony without evidence of active infection. Differential diagnosis includes anemia, bleeding varicose vein, hemorrhage, polysubstance abuse Plan for screening labs, UDS Differential Diagnosis Differential Diagnoses: The differential diagnosis associated with the presentation includes as above. Admission/Observation not indicated. Lab Data MDM Lab Attestation statement: I reviewed the patient's lab results. as above. 02/25/25 14:45 02/25/25 14:45 Labs: Lab Results 02/25/25 02/25/25 02/25/25 Range/Units 14:45 15:13 20:17 WBC 9.6 (4.8-10.8) X10*3/uL RBC 3.85 L (4.60-5.80) X10*6/uL Hgb 7.5 L (14.0-18.0) g/dl Hct 25.8 L (42.0-52.0) % MCV 67.0 L (80.0-98.0) fL MCH 19.5 L (27.0-33.0) pg MCHC 29.1 L (31.0-36.0) g/dl RDW 21.6 H (11.0-16.0) % Plt Count 298 (160-400) X10*3/uL MPV 9.9 (9.4-12.4) fL Immature Gran % (Auto) 1.0 H (0.0-0.4) % Neut % (Auto) 74.6 H (45-73) % Lymph % (Auto) 12.1 L (20-40) % Kershaw % (Auto) 11.3 H (2-11) % Eos % (Auto) 0.5 (0-4) % Baso % (Auto) 0.5 (0-2) % Lymph # (Auto) 1.2 (1.2-4.9) X10*3/uL K[place]haw # (Auto) 1.1 (0.1-1.2) X10*3/uL Eos # (Auto) 0.1 (0.0-0.4) X10*3/uL Baso # (Auto) 0.1 (0.0-0.2) X10*3/uL Abs Immat Gran (auto) 0.10 H (0.00-0.03) X10*3/uL Absolute Neuts (auto) 7.2 (2.0-8.3) x10*3/uL Absolute Nucleated RBC 0.000 (0.0-0.012) X10*3/uL Nucleated RBC % (auto) 0.0 (0.0-0.2) /100WBC PT 44.8 H D (10.9-12.4) SEC INR 3.8 H (0.9-1.1) APTT 37.5 H (26.0-36.8) SEC Sodium 137 (135-145) mmol/L Potassium 4.2 (3.3-5.1) mmol/L Chloride 108 (96-108) mmol/L Carbon Dioxide 16 L (22-29) mmol/L Anion Gap 17 (12-20) BUN 29 H (9-16) mg/dL Creatinine 0.89 (0.5-1.4) mg/dL Estim Creat Clear Calc 107.2 Estimated GFR > 60 Random Glucose 60 (60-115) mg/dL Calcium 9.0 D (8.4-10.2) mg/dL Total Bilirubin 1.2 H (0.0-1.0) mg/dL AST 65 H (5-37) U/L ALT 37 (0-40) U/L Alkaline Phosphatase 225 H (39-117) U/L Total Protein 7.1 (6.5-8.0) g/dL Albumin 3.6 (3.5-5.0) g/dL Urine Color Yellow Urine Appearance Clear Urine pH 6.0 (5.0-9.0) Ur Specific Kimball 1.020 (1.005-1.025) Urine Protein Trace (Neg-Trace) mg/dL Urine Glucose (UA) Negative (Negative) mg/dL Urine Ketones Trace (Negative) mg/dL Urine Blood Trace H (Negative) Urine Nitrite Negative (Negative) Ur Leukocyte Esterase Negative (Negative) Urine RBC 0-2 (0-2) /HPF Urine WBC 0-5 (0-5) /HPF Ur Squamous Epith Cells 0-2 (0-2) /HPF Urine Bacteria None Seen (None Seen) Hyaline Casts 0-2 (0-2) /LPF Urine Opiates Screen POSITIVE H (Not Detect) Ur Buprenorphine Scrn Not Detected (Not Detect) ng/mL Ur Oxycodone Screen Not Detected (Not Detect) ng/mL Urine Methadone Screen Positive H (Not Detect) ng/mL Urine Fentanyl Screen POSITIVE H (Not Detect) Ur Barbiturates Screen Not Detected (Not Detect) Ur Phencyclidine Scrn Not Detected (Not Detect) Ur Amphetamines Screen Not Detected (Not Detect) U Benzodiazepines Scrn Not Detected (Not Detect) Urine Cocaine Screen POSITIVE H (Not Detect) U Marijuana (THC) Screen Not Detected (Not Detect) Independent Historian Clinical information obtained from an independent historian. History obtained from or confirmed by: EMS External Record Review External record reviewed: Inpatient record, Office record, Outpatient record and Prior outpatient labs Social Determinants Patient?s care significantly limited by Social Determinants of Health including: Other Social Determinant of Health Critical Care Time Critical Care Time Critical Care Time: No Discharge Plan Discharge Clinical Impression: Bleeding from varicose vein Patient Disposition: Home, Self-Care Additional Instructions: Keep the compression bandage in place over the bleeding vein. Follow up with your primary care provider. Prescriptions: No Action methadone [Methadone Intensol] 10 mg/mL Concentrate 115 mg PO DAILY ProAir RespiClick 90 mcg/actuation aerosol powdr breath activated 2 inh INHALATION Q4-6H PRN (Reason: wheezing) sulfamethoxazole-trimethoprim [Bactrim DS] 800-160 mg tablet 1 tab PO DAILY 2 Days Qty: 2 0RF Eliquis 5 mg tablet 5 mg PO BID 30 Days Qty: 60 0RF magnesium oxide 400 mg magnesium Tablet 400 mg PO DAILY Interventions: ED Discharge Assessment Last Done: 02/25/25 23:22 Discharge Date/Time: 02/25/25 23:37 Print Language: Croatian
[2025-02-25 15:00] LABS: MANUAL DIFF FLAG NO
[2025-02-25 15:02] LABS: Basophils Absolute Auto 0.1 X10*3/uL (0.0-0.2); Basophils Percent Auto 0.5 % (0-2); Eosinophils Absolute Auto 0.1 X10*3/uL (0.0-0.4); Eosinophils Percent Auto 0.5 % (0-4); Hematocrit 25.8 % (42.0-52.0); Hemoglobin 7.5 g/dl (14.0-18.0); Lymphocytes Absolute Auto 1.2 X10*3/uL (1.2-4.9); Lymphocytes Percent Auto 12.1 % (20-40); Mean Corpuscular HGB Conc 29.1 g/dl (31.0-36.0); Mean Corpuscular Hemoglobin 19.5 pg (27.0-33.0); Mean Platelet Volume 9.9 fL (9.4-12.4); Monocytes Absolute Auto 1.1 X10*3/uL (0.1-1.2); Monocytes Percent Auto 11.3 % (2-11); Neutrophils Absolute Auto 7.2 x10*3/uL (2.0-8.3); Neutrophils Percent Auto 74.6 % (45-73); Platelet Count 298 X10*3/uL (160-400); Red Blood Count 3.85 X10*6/uL (4.60-5.80); Red Cell Distribution Width 21.6 % (11.0-16.0); White Blood Count 9.6 X10*3/uL (4.8-10.8)
[2025-02-25 15:15] LABS: Alanine Aminotransferase 37 U/L (0-40); Albumin Level 3.6 g/dL (3.5-5.0); Alkaline Phosphatase 225 U/L (39-117); Anion Gap 17 (12-20); Aspartate Amino Transferase 65 U/L (5-37); Bilirubin Total 1.2 mg/dL (0.0-1.0); Blood Urea Nitrogen 29 mg/dL (9-16); Carbon Dioxide 16 mmol/L (22-29); Chloride 108 mmol/L (96-108); Creatinine Clr Calc Pharmacy 107.2; Estimated Glomerular Filt Rate > 60; Glucose Random 60 mg/dL (60-115); Potassium 4.2 mmol/L (3.3-5.1); Sodium 137 mmol/L (135-145); Total Protein 7.1 g/dL (6.5-8.0)
[2025-02-25 15:26] LABS: INTERNATIONAL NORM RATIO 3.8 (0.9-1.1); Prothrombin Time 44.8 SEC (10.9-12.4)
[2025-02-25 15:29] LABS: Partial Thromboplastin Time 37.5 SEC (26.0-36.8)
[2025-02-25 17:44] VITALS: BP 116/71; PULSE 84; RESP 14; O2SAT 96
[2025-02-25] MEDS: 0.9 % Sodium Chloride 1,000 ML 999 ML IV (18:17)
[2025-02-25 20:00] VITALS: BP 114/75; PULSE 97; RESP 18; TEMP 36.7; O2SAT 97
[2025-02-25 20:33] LABS: Appearance Urine Clear; Color Urine Yellow; Glucose Urine UA Negative (Negative); Leukocyte Esterase Urine Negative (Negative); Nitrite Urine Negative (Negative); UMIC TRIGGER UACC YES; Urine Blood Trace (Negative); Urine Ketones Trace mg/dL (Negative); Urine Protein Trace mg/dL (Neg-Trace)
[2025-02-25 20:35] LABS: Bacteria Urine None Seen (None Seen); Hyaline Casts Urine 0-2 /LPF (0-2); RBC Urine 0-2 /HPF (0-2); Squamous Epithelial Cell Urine 0-2 /HPF (0-2); WBC Urine 0-5 /HPF (0-5)
[2025-02-25 20:36] LABS: Amphetamine Screen Urine Not Detected (Not Detect); Barbiturates, Urine Not Detected (Not Detect); Benzodiazepines Screen Urine Not Detected (Not Detect); Buprenorphine Scr Not Detected (Not Detect); Cannabinoid Screen Urine Not Detected (Not Detect); Cocaine Screen Urine POSITIVE (Not Detect); Fentanyl, urine POSITIVE (Not Detect); Methadone Screen, Urine Positive (Not Detect); Opiate Screen Urine POSITIVE (Not Detect); Oxycodone Screen Urine Not Detected (Not Detect); Phencyclidine Screen Urine Not Detected (Not Detect)
--- NOTE | 2025-02-25 23:11 | PC.NURSE ---
This RN assumed pt care @ 2300. Pt a&ox4, no signs of distress plan of care ongoing.
--- NOTE | 2025-02-25 23:17 | PC.NURSE ---
Pt cursing and calling this RN names and in pakistani Pt stating bitch Security called Plan of care ongoing.
--- NOTE | 2025-02-25 23:20 | PC.NURSE ---
Pt refused vitals lumber inspector removed IV Pt escorted out by security Pt stating fuck your mother to this RN
[2025-02-25 23:22] VITALS: BP 114/75; PULSE 97; RESP 18; TEMP 36.7; O2SAT 97
== END 2025-02-25 23:37 | disposition home or self-care (01) ==
PROVIDERS: Physician Assistant Medical; Emergency Provider Emergency Medicine
DX: I83.892 Varicose veins of left lower extremity with other complications (principal); S81.812A Laceration without foreign body, left lower leg, initial encounter; R00.0 Tachycardia, unspecified; M79.605 Pain in left leg; I10 Essential (primary) hypertension; F17.210 Nicotine dependence, cigarettes, uncomplicated; F11.10 Opioid abuse, uncomplicated; F14.10 Cocaine abuse, uncomplicated; X58.XXXA Exposure to other specified factors, initial encounter; Y93.9 Activity, unspecified; Y92.9 Unspecified place or not applicable; Y99.8 Other external cause status; Z51.81 Encounter for therapeutic drug level monitoring; Z79.899 Other long term (current) drug therapy; Z79.01 Long term (current) use of anticoagulants; Z86.711 Personal history of pulmonary embolism
CPT/HCPCS: 12001; 36415; 80053; 80307; 81001; 85025; 85610; 85730; 96360; 99284

== ENCOUNTER 2025-03-02 09:40 | Emergency (ER) | payer MEDICAID, SELFPAY ==
[2025-03-02 09:48] VITALS: BP 121/73; PULSE 96; RESP 26; TEMP 36.4; O2SAT 100; BMI 21.9
--- NOTE | 2025-03-02 09:53 | ED_ITS ---
HPI - General Adult General Chief complaint: Wound/Laceration Stated complaint: open wound Time Seen by Provider: 03/02/25 09:50 Source: patient Limitations: no limitations History of Present Illness HPI narrative: This is a 34 years old presented to the emergency department complaining of right leg bleeding, he has a history of varicose vein he has a chronic wound he arrived with a tourniquet in the right thigh Onset (ago): hour(s) (1) Location: lower extremity (rt leg) Radiation: non-radiation Severity: moderate Pain Consistency: constant Relieving factors: none Exacerbating factors: none Associated symptoms: denies other symptoms Related Data Home Medications ?Medication ?Instructions ?Recorded ?Confirmed methadone 10 mg/mL oral 115 mg PO DAILY 09/13/24 02/08/25 concentrate (Methadone Intensol) magnesium oxide 400 mg PO DAILY 10/10/24 02/07/25 albuterol sulfate 90 mcg/actuation 2 inh inhalation Q4-6H PRN wheezing 02/07/25 02/07/25 breath activated powder inhaler (ProAir RespiClick) Previous Rx's ?Medication ?Instructions ?Recorded apixaban 5 mg tablet (Eliquis) 5 mg PO BID 30 days #60 tabs 02/09/25 sulfamethoxazole 800 1 tab PO DAILY 2 days #2 tabs 02/09/25 mg-trimethoprim 160 mg tablet (Bactrim DS) Allergies Allergy/AdvReac Type Severity Reaction Status Date / Time No Known Allergies Allergy Verified 03/02/25 09:52 [No Known Allergies*] Review of Systems 2 Eyes: Eyes: Reports no additional eye complaints Cardiovascular: Cardiovascular: Reports no additional cardiovascular complaints PMFSH Past Medical History Attestation statement: The following information was validated with the patient. Medical History Rhabdomyolysis Anemia LUCERO (acute kidney injury) Polysubstance abuse Opioid use disorder Opioid use disorder, severe, dependence Substance abuse MSSA bacteremia Bacteremia Bacteremia Right heart failure Steatosis, liver Tricuspid valve stenosis Anasarca HCV (hepatitis C virus) Endocarditis Pulmonary embolism Surgical History History of tricuspid valve replacement with bioprosthetic valve Social History Social History Household Members: Other Household Members Other:: nursing home Housing: Homeless Do you presently have visiting nurse or other home services: No Unable to assess alcohol history related to: Unknown Alcohol intake: never Patient Tobacco Use Status: Current everyday Tobacco user Tobacco use type: Cigarette Cigarette Packs Per Day: 0.5 Cigarettes Per Day: 10.0 Years Smoked: 10 Second Hand Smoke Exposure: No Substance Use Type: Crack/Cocaine, Heroin and IV Drugs Advance Directives: Yes Advance Directives on File: Yes Advance Directives Date on File: 04/16/21 Do you have a plan to hurt others: No Plan service: No Current occupational status: unemployed Physical Exam ED Vital Signs: Vital Signs - 24 hr 03/02/25 09:48 03/02/25 10:56 Temperature 97.6 F 97.6 F Pulse Rate 96 96 Respiratory Rate 26 H 26 H Blood Pressure 121/73 121/73 Pulse Oximetry 100 100 Oxygen Delivery Method Room Air Room Air BMI result Body Mass Index 21.9 No acute distress Const General: cooperative Nutritional Appearance: average body habitus Orientation/consciousness: patient oriented x3 HENMT Head: Yes normal to inspection Neck Neck: Yes normal visual inspection Chest Chest palpation & inspection: normal inspection of the chest Resp Effort & Inspection: normal respiratory effort Cardio Jugular venous distension: no JVD Rate: regular rate GI Inspection: Yes normal to inspection Auscultation: normal bowel sounds General: Yes no CVA tenderness Back/Spine/Pelvis Back: no CVA tenderness Skin General skin exam: no rashes or lesions noted Lesions: no lesions Neuro General: patient oriented x3 Cranial nerves: Yes CN's II-XII intact bilaterally Extrem Other: Right leg patient has a chronic wound see picture Course Reevaluation(s) Reevaluation #1: I was told by the RN that patient left against medical advice bleeding was controlled wound was dressed Medications Administered Discontinued Medications Generic Name Dose Route Start Last Admin Trade Name Freq PRN Reason Stop Dose Admin Acetaminophen 975 mg 03/02/25 10:04 03/02/25 10:55 Acetaminophen 325 Mg Tablet PO 03/02/25 10:05 Not Given ONCE ONE Medical Decision Making Medical Decision Making MDM Narrative: Patient presented with bleeding from the wound the bleeding was controlled with a pressure Differential Diagnosis Differential Diagnoses: The differential diagnosis associated with the presentation includes Bleeding from the wound/infection/varicose vein rupture Admission/Observation Consideration of admission/observation: Escalation of care including admission/observation considered Discharge Plan Discharge Clinical Impression: Bleeding from wound Wound of left leg Qualifiers: Encounter type: initial encounter Qualified Code(s): S81.802A - Unspecified open wound, left lower leg, initial encounter Patient Disposition: Left Against Medical Advice Prescriptions: No Action methadone [Methadone Intensol] 10 mg/mL Concentrate 115 mg PO DAILY ProAir RespiClick 90 mcg/actuation aerosol powdr breath activated 2 inh INHALATION Q4-6H PRN (Reason: wheezing) sulfamethoxazole-trimethoprim [Bactrim DS] 800-160 mg tablet 1 tab PO DAILY 2 Days Qty: 2 0RF Eliquis 5 mg tablet 5 mg PO BID 30 Days Qty: 60 0RF magnesium oxide 400 mg magnesium Tablet 400 mg PO DAILY Stand Alone Forms: Against Medical Advice Interventions: ED Discharge Assessment Last Done: 03/02/25 10:56 Discharge Date/Time: 03/02/25 10:58 Print Language: Luxembourgish
--- NOTE | 2025-03-02 09:53 | PC.NURSE ---
[facility] methadone dose 115
[2025-03-02 10:56] VITALS: BP 121/73; PULSE 96; RESP 26; TEMP 36.4; O2SAT 100
--- OUTSIDE RECORDS SUMMARY | 2025-03-02 11:38 | XMS_ITS | Encounter Summary ---
Author Organization [employer] Address [address] [facility] [address] [place] [address] Care Team Providers Care Teacher Aide Name Role Phone Alba So NP Primary Care Provider [phone] Reason for Visit * Reason Onset Date Comments Hospital Follow-up 09/30/2024 Encounter Details Date Type Department Care Team ([facility] st Contact Info) Description 09/30/2024 Telephone [facility] MEDICINE [address] [place] [address] Alba So NP [address] [place] [address] Hospital Follow-up Social History Tobacco Use Types [...] from pt requesting a HDF appt. Hospital: [facility] Date of admission: 09/23/24 Discharge date: 09/29/24 Diagnosed: Pneumonia / SOB / Chest pain *Send message to [facility] Clinical Care Coordinators documented in this encounter Plan of Treatment Not on file documented as of this encounter Visit Diagnoses Not on filedocumented in this encounter Additional Health Concerns Assessment Noted Time PHQ-9 Depression Total Score: 0 06/03/20 23 10:05 AM EDT documented as of this encounter Care Teams Teacher Aide Relationship Specialty Start Date End Date Alba So NP [address] [place] [id number] PCP - General Family Medicine 04/14/24 documented as of this encounter
--- OUTSIDE RECORDS SUMMARY | 2025-03-02 11:38 | XMS_ITS | Encounter Summary ---
Author Organization [employer] Address [address] [facility] [address] [place] [address] Care Team Providers Care Mastic Worker Name Role Phone Nirali Lott Primary Care Provider [phone] Alba So NP Primary Care Provider [phone] Reason for Visit * Reason Onset Date Comments Hospital Follow-up 04/05/2024 Encounter Details Date Type Department Care Team ([facility] Contact Info) Description 04/05/[address] [facility] MEDICINE [address] [place], [place] [id number] Nirali Lott FNP [address] [place] [address] Hospital Follow-up Social History Tobacco Use Types [...] others, in a hotel, in a senior living, living outside on the street, on a [...] from pt requesting a HDF appt. Hospital: [facility] Date of admission: 03/30 Discharge date: 04/01 Diagnosed: Chest Pain documented in this encounter Plan of Treatment Not on file documented as of this encounter Visit Diagnoses Not on filedocumented in this encounter Additional Health Concerns Assessment Noted Time PHQ-9 Depression Total Score: 0 06/03/20 23 10:05 AM EDT documented as of this encounter Care Teams Mastic Worker Relationship Specialty Start Date End Date Nirali Lott FNP [address] [place] [address] PCP - General Family Medicine 07/09/23 04/13/24 Alba So NP [address] [place] [address] PCP - General Family Medicine 04/14/24 documented as of this encounter
--- OUTSIDE RECORDS SUMMARY | 2025-03-02 11:39 | XMS_ITS | Data Portability ---
Author Organization [facility] [employer] [facility], Main Office Address [address] [facility], [address] [place] [address] Care Team Providers Care Residential Mental Health Worker Name Role Phone [facility] OTHER Assessment Encounter Date Assessment Date Assessment LastModified by Organization Details LastModified Time 04/09/2023 04/09/2023 04/01/23 wbc 6.8, hgb 9.2, plt 291, na 145, k 3.5, creat 0.9 04/08/23 na 140, k 3.8, creat 0.7 t bili 1.5, alk phos 144, ast/alt 13 [id number] Not available 04/09/2023 08:41:20 Plan of Treatment [...] Address Organization Details Recorded Time Septic shock 12735898 Active 2022 Martinez Rendon MD [address] [facility], [address], [place], [address], [employer] 3 15:13:19 Infective endocarditis of tricuspid valve 083684784 Active 2022 Martinez Rendon MD [address] [facility], [address], [place], [address], [facility] 3 15:13:41 Pulmonary embolism 85889042 Active 2022 Martinez Rendon MD [address] [facility], [address], [place], [address], [place] [facility]actually 3 15:13:48 Chronic hepatitis C 940320549 Active 2022 Martinez Rendon MD [address], [address], [place], [address], [facility] [employer] [facility] 3 15:13:55 Anemia 017740081 Active 2022 Martinez Rendon MD [address], [address], [place], [address], [facility] [employer] [facility] 3 15:14:52 Cirrhosis of liver 84484929 Active 2022 Martinez Rendon MD [address], [address], [place], [address], [facility] [employer] [facility] 3 15:14:58 Congestive heart failure 38967366 Active 2022 Martinez Rendon MD [address], [address], [place], [address], [facility] [employer] [facility] 3 15:15:02 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 615728933 Active 2022 Martinez Rendon MD [address], [address], [place], [address], [facility] [employer] [facility] 3 15:15:08 Unsheltered homelessness Active 2022 Martinez Rendon MD [address], [address], [place], [address], [facility] [employer] [facility] 3 15:15:20 Tobacco user 694662803 Active 2022 Martinez Rendon MD [address], [address], [place], [address], [facility] [employer] [facility] 3 15:35:03 Primary insomnia 4989529 Active 2022 Martinez Rendon MD [address], [address], [place], [address], [facility] [employer] [facility] 3 15:34:02 Problem Notes None recorded. Medical Equipment None Reported. Allergies No known drug allergies Medications Not known to be on any medication Vitals None Recorded Social History Question Answer Notes LastModified by Organizat ion Details LastModified Time Tobacco Smoking Status Current Every Day Smoker Martinez Rendon MD [address] [facility], [address], [place], [address], [facility] 03/24/2023 15:12:49 How Much Tobacco Do You Smoke? 1 PPD Information not available 03/24/2023 Sex: Unknown Functional Status Question Answer Note LastModified by Organizat ion Details LastModified Time What is your level of alcohol consumption? None hx of ETOH Information not available 03/24/2023 Mental Status None recorded. Family History Nothing Reported Notes:N/C Medical History No medical history recorded. Past Encounters Encounter ID Performer Location Encounter Start Date Encounter Closed Date Diagnosis/Indication Diagnosis SNOMED-CT Code Diagnosis ICD10 Code Diagnosis Note [id number] Martinez Rendon MD [facility] on [address] [place] [address] 03/24/2023 15:03:52 03/30/2023 15:17:15 Septic shock 27611678 R65.21 see HPInow onnafcilli n 2 gm q 4 for 26 daysadd probiotic bidmonitor cbcupdate ID with concerns 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 165927921 F19.10 maintained onmethadon e 40 mg qdwill establish with clinicSUDS counselor at facility Infective endocarditis of tricuspid valve 795779878 I33.0 see HPIhx of TV endocardit is s/p bioprosthe tic TVR complicate d by bioprosthe tic valve stenosismo nitor for sxadded to PMHpatient is followed by CT surgery and cardiology at [facility] Pulmonary embolism 98859 003 I26.99 xarelto 20 mg qdmonitor respirator y status Chronic hepatitis C 1283 35024 B18.2 untreated with resultant cirrhosis of liver with hx etohwill refer to GI Cirrhosis of liver 52479 007 K74.69 see above Anemia 196492407 D50.8 appears due to malnutriti on and iron deficiency monitor cbciron studies prndietary consult prn Congestive heart failure 42268077 I50.22 carrying dxmaintain ed on spironolac tone 25 mg qdmonitor respirator y status and need to titrate Unsheltere d homelessness 9196000422 98590 Z59.02 social work assistant to be involvedma y be barrier [facility] added to PMH Tobacco user 350017377 Z 72.0 currently refusing nicotine patchis smoking at facilityco nsidering quitting, encouraged may start patch tomorrow [id number] Martinez Rendon MD [facility] on [address] [place] [address] 03/25/2023 15:30:14 03/30/2023 15:28:18 Primary insomnia 5713319 F51.01 see HPIwill starttraza done 25 mg qhs prnmonitor for effect and need to titrate 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 552050715 F19.10 methadone 40 mg qdcurrentl y stable at baseline [id number] SCOTTIE Chen [facility] on [address] [place] [address] 03/30/2023 08:21:03 04/01/2023 10:41:27 Septic shock 33881145 R65.21 nafcillin 2 gm q 4 hrs til 04/19/23moni tor cbcf/u with ID s 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 403182600 F19.10 methadone 40 mg qdf/u with methadone clinicSUDs counseling at facility Infective endocarditis of tricuspid valve 274012000 I33.0 hx of TV endocardit is s/p bioprosthe tic TVR complicate d by bioprosthe tic valve stenosispt notes sob intermitte ntly since TVR a couple of years agowaiting for CXR resultsfol lowed by CT surgery and cardiology at [facility] Pulmonary embolism 32759 003 I26.99 xarelto 20 mg qdmonitor resp status, bleeding risk Chronic hepatitis C 1283 23443 B18.2 untreated with resultant cirrhosis of liver with hx etohreferr ed to GI Cirrhosis of liver 63075 007 K74.69 see above Anemia 875558805 D50.8 appears due to malnutriti on and iron deficiency monitor cbciron studies prndietary consult prn Congestive heart failure 93043816 I50.22 compensate dspironola ctone 25 mg qdmonitor respirator y status and need to titrate Unsheltere d homelessness 2896945261 62441 Z59.02 rn social services involvedba rrier [facility] Primary insomnia 9779734 F51.01 increase trazodone to 50 mg qhsmonitor for effect [id number] Martinez Rendon MD [facility] on [address] [place] [address] 03/31/2023 16:07:11 04/03/2023 16:00:10 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 532786140 F19.10 see HPImethado ne 40 mg qd currentlyp atient can f/u at methadone clinic for dose adjustment Septic shock 26644890 R6 5.21 nafcillin 2 gm q 4 to complete courserepe at cbc in am Pulmonary embolism 00662 003 I26.99 xarelto 20 mg qdmonitor respirator y statuswith atypical chest pain would consider CT imaging if symptoms changeto ED for acute decompensa tion [id number] Martinez Rendon MD [facility] on [address] [place] [address] 04/03/2023 15:42:16 04/06/2023 16:19:22 Atypical chest pain 684789062 R07.89 exam reassuring question underlying neuropathi c painwill start gabapentin 100 mg tid and followmoni tor need for chest CT depending on change in presentati on Septic shock 53041866 R6 5.21 see HPI with shock and endocardit isnafcilli n 2 gm q 4 for 26 days from admitmonit or cbcupdate ID with concernswb c count reassuring 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 680315391 F19.10 methadone 40 mg qdSUDS counselor at facility Pulmonary embolism 39565 003 I26.99 xarelto 20 mg qdmonitor respirator y statuscont inuedsee above [id number] SCOTTIE Chen [facility] on [address] [place] [address] 04/06/2023 14:52:36 04/13/2023 16:26:47 Septic shock 24648170 R65.21 nafcillin 2 gm q 4 hrs til 04/19/23moni tor cbcf/u with ID s 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 197222815 F19.10 methadone 40 mg qdf/u with methadone clinicSUDs counseling at facility Infective endocarditis of tricuspid valve 627096756 I33.0 hx of TV endocardit is s/p bioprosthe tic TVR complicate d by bioprosthe tic valve stenosispt notes sob intermitte ntly since TVR a couple of years agonow somewhat worse with abd distension discussed with Dr Rendon, will get abd UL, nurse aware and will orderfollo wed by CT surgery and cardiology at [facility] Pulmonary embolism 71481 003 I26.99 xarelto 20 mg qdmonitor resp status, bleeding risk Chronic hepatitis C 1283 34442 B18.2 untreated with resultant cirrhosis of liver with hx etohreferr ed to GI Cirrhosis of liver 007 K74.69 now with possible ascitesabd UL as aboveincre ase spironolac tone to 50 mg qd (was on 25 mg qd)monitor for worsening sxs Anemia 712049137 D50.8 appears due to malnutriti on and iron deficiency monitor cbciron studies prndietary consult prn Congestive heart failure 11594742 I50.22 increased sobspirono lactone 50 mg qd (as above)anoop tor respirator y status and need to titrate [id number] Martinez Rendon MD [facility] on [address] [place] [address] 04/07/2023 13:38:54 04/14/2023 09:58:52 Abdominal pain 03711510 R10.31 abd discomfort with distention ultrasound pendingCMP in ammonitor LFTs and need for GI referral Atypical chest pain 1025 98165 R07.89 see abovewill increase gabapentin to 200 mg tid and followmoni tor need for chest CT depending on change in presentati on Septic shock 06602786 R6 5.21 see HPI with shock and endocardit isnafcilli n 2 gm q 4 through 7/1monitor cbcupdate ID with concernswb c count reassuring [id number] SCOTTIE Chen [facility] on [address] [place] [address] 04/09/2023 08:34:52 04/22/2023 08:32:51 Infective endocarditis of tricuspid valve 913979059 I33.0 hx of TV endocardit is s/p bioprosthe tic TVR complicate d by bioprosthe tic valve stenosispt notes sob intermitte ntly since TVR a couple of years agowaiting for abd UL to be donefollow ed by CT surgery and cardiology at [facility] Cirrhosis of liver 94013 007 K74.69 now with possible ascitesabd UL as abovespiro nolactone 50 mg qdmonitor for worsening sxs 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 942779083 F19.10 methadone 40 mg qddiscusse d with MD and will not add narcotic in pt with hx of polysubsta nce abuse - pain appears to be chronic in naturef/u with methadone clinicSUDs counseling at facility Septic shock 37364402 R6 5.21 nafcillin 2 gm q 4 hrs til 04/19/23moni tor cbcf/u with ID s Pulmonary embolism 47760 003 I26.99 xarelto 20 mg qdmonitor resp status, bleeding risk Chronic hepatitis C 1283 95414 B18.2 untreated with resultant cirrhosis of liver with hx etohreferr ed to GI Anemia 649331308 D50.8 appears due to malnutriti on and iron deficiency monitor cbciron studies prndietary consult prn Congestive heart failure 98112352 I50.22 stable todayspiro nolactone 50 mg qd (as above)anoop tor respirator y status and need to titrate Abdominal pain 44319101 R10.31 abd discomfort with distention ultrasound pendingCMP in ammonitor LFTs again on 04/13/23 and need for GI referral Atypical chest pain 1025 36996 R07.89 see abovegabap entin 200 mg tid and followmoni tor need for chest CT depending on change in presentati on Martinez Rendon MD [facility] on [address] [place] [address] 04/13/2023 15:29:49 04/22/2023 08:58:15 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 768146994 F19.10 maintained onmethadon e 40 mg qdwill write for oxycodone 5 mg q 8 prn breakthrou gh painthis will be discontinu ed at time of dischargep atient not to leave facility with oxycodone Infective endocarditis of tricuspid valve 871083040 I33.0 see HPIhx of TV endocardit is s/p bioprosthe tic TVR complicate d by bioprosthe tic valve stenosisco mplete Ab on 04/15 with ID signing off at this time Pulmonary embolism 65288 003 I26.99 xarelto 20 mg qdmonitor respirator y statushold day prior to paracentes is and day of procedure Chronic hepatitis C 1283 93373 B18.2 untreated with resultant cirrhosis of liver with hx etoh and now significan t asciteswil l refer to GI for further workup and evalwill refer to interventi onal radiology for paracentes iss Cirrhosis of liver 007 K74.69 see above [id number] Martinez Rendon MD [facility] on [address] [place] [address] 04/15/2023 13:43:11 04/22/2023 10:39:02 Infective endocarditis of tricuspid valve 468205629 I33.0 see HPIhx of TV endocardit is s/p bioprosthe tic TVR complicate d by bioprosthe tic valve stenosisan tibiotic completeID to set time to remove picc line Pulmonary embolism 21081 003 I26.99 xarelto 20 mg qdmonitor respirator y statushold day prior to paracentes is and day of procedure 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 086840021 F19.10 maintained onmethadon e 40 mg qdoxycodon [...] for paracentes is Restlessne ss and agitation 252134600 R45.1 Patient verbally abusive and patronizin g [...] request psych eval if patient will accept [id number] SCOTTIE Chen [facility] on [address] [place] [address] 04/23/2023 12:25:55 04/29/2023 07:46:12 Infective endocarditis of tricuspid valve 474059969 I33.0 pt ok to discharge today to homeless shelterhx of TV endocardit is s/p bioprosthe tic TVR complicate d by bioprosthe tic valve stenosisco mpleted Ab on 04/15/23 with ID signing off at this timef/u with cards, pcp Pulmonary embolism 61674 003 I26.99 xarelto 20 mg qd - rx written for #30f/u with pcp Chronic hepatitis C 1283 24616 B18.2 untreated with resultant cirrhosis of liver with hx etoh and now significan t ascitesref erred to GI for further workup and evalpt refused paracentes is when he was sent out to [facility] 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 476441633 F19.10 pt received his last dose methadone [...] Member ID Guarantor Name 04/07/2023 1 [place] Norberto Corjazmin [id number] Norberto Corjazmin 04/09/2023 1 [place] Norberto Coriano [id number] Norberto Corjazmin 04/13/2023 1 [place] Norberto Coriano [id number] Norberto Corjazmin 04/15/2023 1 [place] Norberto Coriano [id number] Norberto Corjazmin 04/23/2023 1 [place] [facility] Nor[facility]to Corjazmin [id number] Norberto Marquez Notes Date Note Type Note Provider Name [...] requesting increase in gabapentin Martinez Rendon MD [address] [facility], [address], [place], [address], [facility]actually 04/07/2023 13:48:54 04/09/2023 text/html pt seen today [...] rib and back pain. SCOTTIE Chen [address] [facility], [address], [place], [address], whoactually 04/09/2023 14:32:40 04/13/2023 text/html Patient is a [...] with c/o pain Martinez Rendon MD [address] [facility], [address], [place], [address], whoactually 04/13/2023 15:45:02 04/15/2023 text/html Patient is a [...] for theraputic paracentesis. Martinez Rendon MD [address] [facility], [address], [place], [address], [employer] 04/15/2023 14:38:05 04/23/2023 text/html pt seen today fo r discharge summary. pt is discharging to a homeless [facility]pc. he has completed his antibiotics on 04/15/23 [...] nafcillin to complete course. SCOTTIE Chen [address] [facility], [address], [place], [address], whoactually 04/23/2023 13:14:23
--- OUTSIDE RECORDS SUMMARY | 2025-03-02 11:39 | XMS_ITS | Encounter Summary ---
Author Organization [employer] Address [address] [facility] 7t [place] [address] Care Team Providers Care Linen Supply Load Builder Name Role Phone Nirali Lott Primary Care Provider [phone] Alba So NP Primary Care Provider [phone] Reason for Visit * Reason Onset Date Comments PT1 08/05/2023 Encounter Details Date Type Department Care Team ([facility] st Contact Info) Description 08/05/2023 Telephone [facility] MEDICINE [address] [place] [address] Nirali Lott FNP [address] [place] [address] PT1 Social History Tobacco Use Types Packs/Day [...] 08/05/2023 1:12 PM EDT PT-1 Request Number [id number] is Pending * Telephone Encounter - Sage Telles - 08/05/2023 12:36 PM EDT Tc from [facility] with [facility] Partner requesting a PT1: Name of facility: [facility]: Consult possible liver transplant Location: [address] [place] [address] Date: 08/12/2023 Time: 11:00 am fax: n/a wheelchair: no Beauty School Instructor: no All future appt's documented in this encounter Plan of Treatment Not on file documented as of this encounter Visit Diagnoses Not on filedocumented in this encounter Additional Health Concerns Assessment Noted Time PHQ-9 Depression Total Score: 0 06/03/20 23 10:05 AM EDT documented as of this encounter Care Teams Linen Supply Load Builder Relationship Specialty Start Date End Date Nirali Lott FNP [address] [place] [address] PCP - General Family Medicine 07/09/23 04/13/24 Alba So NP [address] [place] [address] PCP - General Family Medicine 04/14/24 documented as of this encounter
--- OUTSIDE RECORDS SUMMARY | 2025-03-02 11:39 | XMS_ITS ---
Author Organization [employer] Address [address] [facility] [address] [place] [address] Care Team Providers Care Fire Prevention Officer Name Role Phone Alba So NP Primary Care Provider [phone] CHW Complex Status:Closed (Closed) Start date:01/11/2025 Enrollment reason:ADT Feed End date:02/28/2025 Close reason:Cannot Reach Overview ADT- Pt admitted to [facility] on 01/09/25. Continued Care and Services Coordination
--- OUTSIDE RECORDS SUMMARY | 2025-03-02 11:39 | XMS_ITS | Encounter Summary ---
Author Organization [employer] Address [address] [facility] [address] [place] [address] Care Team Providers Care Speech Lang Path Name Role Phone Nirali Ltot Primary Care Provider [phone] Alba So NP Primary Care Provider [phone] Encounter Details Date Type Department Care Team (Late st Contact Info) Description 10/27/2023 Orders Only [facility] MED [facility] PEDS [address] [place] [address] Nirali Lott FNP [address] [place] [address] Infective endocarditis of tricuspid valve (Primary Dx) [...] t he electric, gas, oil or water [employer] threatened to shut off services in your [...] EST Narrative 11/02/2023 11:06 AM EST ? [facility] ?[address] ?[place] [address] ? CT Scan Report ? Signed ? Patient: Norberto Marquez ?MR#: [id number] ? : 1990 ?Acct:[id number] ? Age/Sex: 33 / M ?ADM Date: 10/27/23 ? Loc: HO.CT ? Attending Dr: Randa Chisholm MD ? Ordering Physician: Randa Chisholm MD ?? Date of Service: 10/27/23 ?? Procedure(s): CT liver 3 phase ?? Accession Number(s): [id number] ? cc: Randa Chisholm MD; [facility] ? EXAMINATION: ?? CT ABDOMEN [...] by Adrian Aguirre MD in OV> ? 11/02/231100 ? DD/ 1635 ? TD/TT: ? Powder Shoveler: SS ? Procedure Note [place], Image - 11/03/[address] [place] [address] [address] Scan Report Signed Patient: Zully Marquez#: [id number] : 1990Acct:[id number] Age/Sex: 33 / MADM Date: 10/27/23 Loc: HO.CT Attending Dr: Randa Chisholm MD Ordering Physician: Randa Chisholm MD Date of Service: 10/27/23 Procedure(s): CT liver 3 phase Accession Number(s): [id number] cc: Randa Chisholm MD; [facility] EXAMINATION: CT ABDOMEN without and [...] signed by Adrian Aguirre MD in OV> 01/15/24 1101 DD/ 1635 TD/TT: Powder Shoveler: [facility]IE[facility] External Provider IMG CT PROCEDURES Final Result documented in this encounter Visit Diagnoses Diagnosis Infective endocarditis of tricuspid valve- Primary documented in this encounter Additional Health Concerns Assessment Noted Time PHQ-9 Depression Total Score: 0 06/03/20 10:05 AM EDT documented as of this encounter Care Teams Speech Lang Path Relationship Specialty Start Date End Date Nirali Lott FNP [address] [place] [address] PCP - General Family Medicine 07/09/23 04/13/24 Alba So NP [address] [place] [address] PCP - General Family Medicine 04/14/24 documented as of this encounter
--- OUTSIDE RECORDS SUMMARY | 2025-03-02 11:39 | XMS_ITS | Encounter Summary ---
Author Organization [employer] Address [address] [facility] [address] [place] [address] Care Team Providers Care Generating Plant Superintendent Name Role Phone Nirali Lott Primary Care Provider [phone] Alba So NP Primary Care Provider [phone] Reason for Visit * Reason Onset Date Comments PT1 10/02/2023 Encounter Details Date Type Department Care Team ([facility] st Contact Info) Description 10/02/2023 Telephone [facility] MEDICINE [address] [place] [address] Nirali Lott FNP [address] [place] [address] PT1 Social History Tobacco Use Types Packs/Day [...] 10/02/2023 11:00 AM EST PT-1 Request Number [id number] is Pending * Telephone Encounter - Christine Mak - 10/02/2023 10:32 AM EST Tc from [facility] with [facility] requesting PT1 transportation. Date: 10/20/2022 Time: 10:15 Visits: 12 a year Address: [address] [place] [address] Facility: [facility] Wheel Chair: n/a Planing Machine Operator Needed: n/a documented in this encounter Plan of Treatment Not on file documented as of this encounter Visit Diagnoses Not on filedocumented in this encounter Additional Health Concerns Assessment Noted Time PHQ-9 Depression Total Score: 0 06/03/20 10:05 AM EDT documented as of this encounter Care Teams Generating Plant Superintendent Relationship Specialty Start Date End Date Nirali Lott FNP [address] [place] [address] PCP - General Family Medicine 07/09/23 04/13/24 Alba So NP [address] [place] [address] PCP - General Family Medicine 04/14/24 documented as of this encounter
--- OUTSIDE RECORDS SUMMARY | 2025-03-02 11:39 | XMS_ITS | Encounter Summary ---
Author Organization [employer] Address [address] [facility] [address] [place] [address] Care Team Providers Care Puddler Pile Driving Name Role Phone Jin Mack Primary Care Provider Unavail able Nirali Lott Primary Care Provider [phone] Alba So NP Primary Care Provider [phone] Encounter Details Date Type Department Care Team (Late st Contact Info) Description 06/08/2023 Orders Only [facility] MED [facility] PEDS [address] [place] [address] Nirali Lott FNP [address] [place] [address] Chronic hepatitis C without hepatic coma (CMS/HCC) [...] documented as of this encounter Care Teams Puddler Pile Driving Relationship Specialty Start Date End Date Jin Mack AGNP PCP - General Family Medicine 04/24/23 07/08/23 Nirali Lott FNP [address] [place] [address] PCP - General Family Medicine 07/09/23 04/13/24 Alba So NP [address] [place] [address] PCP - General Family Medicine 04/14/24 documented as of this encounter
--- OUTSIDE RECORDS SUMMARY | 2025-03-02 11:39 | XMS_ITS ---
Author Organization [employer] Address [address] [facility] [address] [place] [address] Care Team Providers Care Score Caller Name Role Phone Alba So NP Primary Care Provider [phone] CM Complex Status:Closed (Closed) Start date:01/11/2025 Enrollment reason:ADT Feed End date:02/28/2025 Close reason:Cannot Reach Overview ADT- Pt admitted to [facility] on 01/09/25. Continued Care and Services Coordination
--- OUTSIDE RECORDS SUMMARY | 2025-03-02 11:39 | XMS_ITS | Encounter Summary ---
Author Organization [employer] Address [address] [facility] 7[address] [place] [address] Care Team Providers Care Heating Element Builder Name Role Phone Nirali Lott Primary Care Provider [phone] Alba So NP Primary Care Provider [phone] Reason for Referral * Consultation (Routine) - Closed Specialty Diagnoses / Procedures Referred By Merle calvillo Referred To Contact Hand Surgery Diagnoses Pain in finger of left hand Nirali Lott FNP [address] [place] [address] Phone: tel: fax: [facility] [address] [place] [address] Phone: tel: Referral ID Status Reason Start Date Expiration Date V isits Requested Visits Authorized [id number] Closed Specialty Services Required 12/23/2023 12/22/2024 6 6 Encounter Details Date Type Department Care Team (Late st Contact Info) Description 12/23/2023 Orders Only [facility] [address] [place] [address] Nirali Lott FNP [address] [place] [address] Pain in finger of left hand (Primary [...] documented as of this encounter Care Teams Heating Element Builder Relationship Specialty Start Date End Date Nirali Lott FNP [address] [place] [address] PCP - General Family Medicine 07/09/23 04/13/24 Alba So NP [address] [place], [place] [id number] PCP - General Family Medicine 04/14/24 documented as of this encounter
--- OUTSIDE RECORDS SUMMARY | 2025-03-02 11:39 | XMS_ITS | Encounter Summary ---
Author Organization [employer] Address [address] [facility] [address] [place] [address] Care Team Providers Care Railcar Switcher Name Role Phone Alba So SWIMMING POOL INSTALLER AND SERVICER Primary Care Provider [phone] Reason for Visit * Reason Comments Care Coordination C3/CM Outreach Encounter Details Date Type Department Care Team (Latest Contact Info) Description 02/28/2025 Patient Outreach [facility] [address] [place] [address] Alba So NP [address] [place] [address] Care Coordination (C3/CM Outreach) Social History Tobacco Use Types Packs/Day Years [...] as of this encounter Progress Notes * Meagan Garnett - 02/28/2025 1:34 PM EDT CHW Meagan Garnett placed three outreach calls to patient to introduce Complex Care Program. LVM witheach call describing the program and requesting call back to CHW's direct line, . Patient's name, and Address was not confirmed. CHW did not receive any return calls from the patient.On last call provided patient with direct contact information for future reference. Case closed dueto unable to reach. documented in this encounter Plan of Treatment Not on file documented as of this encounter Visit Diagnoses Not on filedocumented in this encounter Additional Health Concerns Assessment Noted Time PHQ-9 Depression Total Score: 18 024 11:56 AM EST documented as of this encounter Care Teams Railcar Switcher Relationship Specialty Start Date End Date Alba So NP [address] [place] [address] PCP - General Family Medicine 04/14/24 documented as of this encounter
--- OUTSIDE RECORDS SUMMARY | 2025-03-02 11:39 | XMS_ITS | Encounter Summary ---
Author Organization [employer] Address [address] [facility] [address] [place] [address] Care Team Providers Care Wireless Store Manager Name Role Phone Alba So NP Primary Care Provider [phone] Encounter Details Date Type Department Care Team (Late st Contact Info) Description 12/21/2024 Orders Only [facility] MED[facility] [address] [place] [address] Alba So NP [address] [place] [address] Social History Tobacco Use Types Packs/Day Years [...] documented as of this encounter Care Teams Wireless Store Manager Relationship Specialty Start Date End Date Alba So NP [address] [place] [id number] PCP - General Family Medicine 04/14/24 documented as of this encounter
--- OUTSIDE RECORDS SUMMARY | 2025-03-02 11:39 | XMS_ITS | Encounter Summary ---
Author Organization [employer] Address [address] [facility] [address] [place] [address] Care Team Providers Care Machining Associate Name Role Phone Nirali Lott Primary Care Provider [phone] Alba So NP Primary Care Provider [phone] Reason for Visit * Reason Onset Date Comments Referral 10/16/2023 Encounter Details Date Type Department Care Team ([facility] st Contact Info) Description 10/16/2023 Telephone [facility] [address] [place] [address] Nirali Lott FNP [address] [place] [address] Referral Social History Tobacco Use Types Packs/Day [...] - 10/16/2023 10:22 AM EST Tc from [facility] ortho never received referral. documented in this encounter Plan of Treatment Not on file documented as of this encounter Visit Diagnoses Not on filedocumented in this encounter Additional Health Concerns Assessment Noted Time PHQ-9 Depression Total Score: 0 06/03/20 23 10:05 AM EDT documented as of this encounter Care Teams Machining Associate Relationship Specialty Start Date End Date Nirali Lott FNP [address] [place] [address] PCP - General Family Medicine 07/09/23 04/13/24 Alba So NP [address] [place] [address] PCP - General Family Medicine 04/14/24 documented as of this encounter
--- OUTSIDE RECORDS SUMMARY | 2025-03-02 11:39 | XMS_ITS | Clinical Summary ---
Author Organization [employer] Address [address] [facility] [address] [place] [address] Care Team Providers Care Train Planner Name Role Phone Alba So GENEVA Primary Care Provider [phone] Allergies No known active allergies Medications * [...] mouth Once per day. 09/29/20 24 Active midodrine (Proamatine) 2.5 MG tabletIndicati ons:History of artificial heart valve Take 1 tablet (2.5 mg) by mouth 3 times daily. 90 tablet 11/21/19 25 Active Blood Pressure kit 1 each 2 times daily. 1 kit 12/22/19 25 026 Active Eliquis 5 MG tablet Take 1 tablet by mouth 2 times daily. 01/14/20 25 Active naloxone (Narcan) 4 mg/0.1 mL nasal spray PLEASE SEE ATTACHED FOR DETAILED DIRECTIONS 01/02/20 25 Active magnesium oxide (Mag-Ox) 400 MG tablet Take 1 tablet by mouth 2 times daily. 01/14/20 Active spironolactone (Aldactone) 25 MG tabletIndicati ons:History of artificial heart valve TAKE 2 TABLETS BY MOUTH EVERY DAY DIRECTED 30 tablet 02/21/20 25 Active Albuterol Sulfate (ProAir RespiClick) 108 (90 Base) MCG/ACT aerosol powder TAKE 2 PUFFS BY MOUTH EVERY 4 TO 6 HOURS NEEDED FOR SHORTNESS OF BREATH /WHEEZE 1 each 02/21/20 Active spironolactone (Aldactone) 25 MG tabletIndicati ons:History of artificial heart valve Take 2 tablets (50 mg) by mouth Once per day. as directed 30 tablet 11/21/19 25 025 Discontinued(Re order (will not trigger notification to Pharmacy)) ProAir RespiClick 108 (90 Base) MCG/ACT aerosol powder Inhale 2 puffs Every 4-6 hours as needed (SOB or wheeze). 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 Cellulitis of left lower extremity 11/21/2024 Assessment [...] treatment, ambulance called and expect called to [facility]. Opioid use disorder 10/17/2024 Acute respiratory [...] [facility] today for ongoing cardiac issues Endocarditis 10/17/2024 [...] he gets home to be transported to [facility] for stitching as he did not want to be transported directly from the clinic Hx of pulmonary embolus 04/18/2023 Overview (04/18/2023): Treating w/ Xarelto 20 mg daily while at [facility] 03/16/23-04/15/23 (anticipated discharge date) Anemia, chronic disease 10/09/2022 Symptomatic anemia 10/09/2022 Overview (10/09/2022): Acute anemia related to tooth extractions on 10/01/22 while still on xarelto for anticoagulation. Taken to [facility] ED, bleeding gums, not able to stop with pressure Hemoglobin 3 Received 1 prbc transfusion Transferred to [facility] for admission on 10/02/22. Received another transfusion Discharged 10/06/22 Ascites 07/21/2022 Bacteremia 07/21/2022 Overview (04/18/2023): Recurrent bacteremia and endocarditis found 03/04/23. Admitted. Left AMA on 03/14/23 Returned 03/15/23. Admitted again with plan to transfer to [facility], [facility], to continue antibiotics until 04/15 to finish [...] Heroin dependence 06/27/2022 Overview (08/23/2024): Admitted to [facility] for rehab Treated w/ Methadone 40 mg at [facility] 03/16/23-04/15/23 -referred to [facility] 08/23/24 Assessment & Plan (08/23/2024 2:45 PM EST): Admitted to [facility] for rehab Treated w/ Methadone 40 mg at SNF 03/16/23-04/15/23 -[facility] [...] 2020 Overview (10/09/2022): 07/16/22 - Presented to [facility] ED with hypotension, found to be in septic shock 07/20/22 - Left hospital AMA before completing IV antibiotics. Blood cultures positive for GBS and required pressor support when he arrived. 07/21/22 - Mother took Pt to [facility] ED since he left [facility] AM. Pt IV drug use while [...] treatment or fibrosis score as of 04/13/23 [facility] ED notes Assessment & Plan (08/06/2023 8:36 PM EDT): Hep C active complicated w decompensated cirrhosis with ascitis Hep C to start tx following now w GI at [facility] per pt Assessment & Plan (06/03/2023 2:07 PM EDT): Patient not sure if he received a referral to [place] for hep c treatment or not. I will place a referral to our [facility] hep c team. Encounters * This document contains information received from the source organization and may not represent a complete record from that organization. Date Type Department Care Team Description 02/28/2025 Patient Outreach [facility] [address] [place] [address] Alba So NP Care Coordination (C3/CM Outreach) 02/17/2025 Refill [facility] [address] [place] [phone] Alba So NP History of artificial heart valve 02/14/2025 Patient Outreach [facility] [address] [place] [address] Alba So NP Care Coordination (C3/CM Outreach) 02/13/2025 Telephone [facility] [address] [place] [phone] Alba So NP No Show (Patient no show for HDF ) 02/10/[address] [address] Tina Johnston MA Chart Prep 02/10/2025 Patient Outreach [facility] [address] [place] [address] Alba So NP 02/07/2025 Orders Only [facility] External Provider, [facility] 02/01/2025 Telephone [facility] [address] [place] [phone] Alba So NP 01/30/2025 Patient Outreach [address] [address] Alba So NP Transition Of Care (Tcm) 01/27/[address] [address] Alba So NP No Show (Patient no show for HDF ) 01/25/2025 Patient Outreach [facility] [address] [place] [address] Alba So NP 01/24/[address] [address] Anastacio Braxton MA chartprep 01/24/2025 Patient Outreach [address] [address] Alba So NP 01/23/2025 Patient Outreach [address] [address] Alba So NP Care Coordination (CHW outreach for SDOH PT-1 and food needs-LVM ) 01/19/2025 Patient Outreach [address] [phone] Alba So NP Transition Of Care (Tcm) (HDF scheduled and SDOH screening positive and Tobacco screening positive) 01/17/2025 Patient Outreach [address] [address] Alba So NP Care Coordination (Outreach) 01/16/2025 Patient Outreach [address] [address] Alba So NP Transition Of Care (Tcm) (HDF unscheduled) 01/11/2025 Patient Outreach [address] [address] Alba So NP Care Coordination (Outreach) 01/11/2025 Patient Outreach [address] [address] Alba So NP Care Coordination (C3/CM Chart Review) 01/11/2025 Patient Outreach [facility] [address] [place] [phone] Alba So NP Care Coordination (C3CM Chart review) 01/11/2025 Patient Outreach [address] [address] Alba So NP 12/30/2024 Population Health Risk Score [facility] (C3) Department [address] [phone] Provider, Population Health Generic 12/25/2024 Orders Only GENERIC EXTERNAL DATA DEPARTMENT Provider, Generic External Data 12/22/2024 Telephone [facility] [address] [place] [phone] Alba So NP 12/21/2024 Orders Only [facility] [address] [place] [address] Alba So NP 12/20/2024 Telephone [facility] [address] [place] [phone] Beth Fong RN 12/20/2024 Patient Outreach [facility] [address] [place] [phone] Alba So NP Transition Of Care (Tcm) 12/19/2024 Refill [facility] [address] [place] [address] Astrid Becker NP History of artificial heart valve 12/08/2024 Orders Only GENERIC EXTERNAL DATA DEPARTMENT Provider, Generic External Data from Last 3 Months Immunizations Immunization Administration Dates Next Due Hep A, Adult [...] with others, in a hotel, in a retirement, living outside on the street, on a [...] 2024 Influenza Vaccine (#1) 2024 , 07/27/2020 Alcohol/Substance Use Screening 10/18/2025 10/18/2024 Depression [...] patient's age to complete this topic Meningococcal B Vaccine Aged Out No l onger eligible based on patient's age to complete [...] Procedure Name Priority Date/Time Associated Diagnosis Comments US ABDOMEN LIMITED Routine 02/08/2025 8: 15 AM EDT CTA CHEST PE PROTOCAL Routine 12/25/2024 3:57 [...] Recently Relevant to Health Maintenance Results * US Abdomen Limited (02/08/2025 8:15 AM EDT) Anatomical Region Laterality Modality Abdomen Ultrasound 02/08/2025 8:15 AM EDT Narrative 02/08/2025 9:41 AM EDT ? [facility] ?[address] ?[place] [address] ? Ultrasound Report ? Signed ? Patient: Norberto Marquez ?MR#: [id number] ? : 1990 ?Acct:[id number] ? Age/Sex: 34 / M ?ADM Date: 02/07/25 ? Loc: HO.S3 ?379-1 ? Attending Dr: Fransisca PANDA ? Ordering Physician: Alana Chan ?? Date of Service: 02/08/25 ?? Procedure(s): US abdomen limited ?? Accession Number(s): [id number] ? cc: [facility]; Alana Chan ? EXAMINATION: ?? US ABDOMEN LIMITED ? CLINICAL INFORMATION: ?? Ascites.. ? COMPARISON: ?? None available. ? TECHNIQUE: ?? Real-time imaging of the right upper quadrant abdominal viscera. Mild ?? to moderate ascites noted most localized the right lower quadrant. ?? Initially patient refused performed ultrasound-guided paracentesis. ?? After coaxing the patient and explaining the benefits, patient agreed ?? to to undergo paracentesis. A a written consent was obtained explaining ?? procedure benefits and wrist. Preliminary ultrasound was performed the ?? right lower quadrant and marker placed in the skin. Patient was prepped ?? in usual sterile manner 1% lidocaine was inserted. 8 5 Togolese Yueh ?? catheter was advanced through the skin into the peritoneal space. There ?? is continuous patient motion and abdominal tenting and yelling during ?? exam. No fluid could be obtained. Exam was terminated. ? FINDINGS/ ? US/US abdomen limited ?? IMPRESSION: ? Unsuccessful ultrasound-guided paracentesis. ? Electronically signed by: ??Ganesh Redd MD ??02/08/2025 09:37 AM EDT RP ? Dictated By: ?Ganesh Redd MD ? Signed By: ?<Electronically signed by Ganesh Redd MD in OV> ?02/08/25 0937 ? DD/ 0815 ? TD/TT: 02/08/25 0841 ? Software Development Leader: MSM ? Procedure Note Donchauter, Image - 02/08/2025 [place] [address] Ultrasound Report Signed Patient: Zully Marquez#: [id number] : 1990Acct:[id number] Age/Sex: 34 / MADM Date: 02/07/25 Loc: .S3 379-[address]: Fransisca PANDA Ordering Physician: Alana Chan Date of Service: 02/08/25 Procedure(s): US abdomen limited Accession Number(s): [id number] cc: [facility]; Alana Chan EXAMINATION: US ABDOMEN LIMITED CLINICAL INFORMATION: Ascites.. COMPARISON: None available. TECHNIQUE: Real-time imaging of the right upper quadrant abdominal viscera. Mild to moderate ascites noted most localized the right lower quadrant. Initially patient refused performed ultrasound-guided paracentesis. After coaxing the patient and explaining the benefits, patient agreed to to undergo paracentesis. A a written consent was obtained explaining procedure benefits and wrist. Preliminary ultrasound was performed the right lower quadrant and marker placed in the skin. Patient was prepped in usual sterile manner 1% lidocaine was inserted. 8 5 Togolese Yueh catheter was advanced through the skin into the peritoneal space. There is continuous patient motion and abdominal tenting and yelling during exam. No fluid could be obtained. Exam was terminated. FINDINGS/ US/US abdomen limited IMPRESSION: Unsuccessful ultrasound-guided paracentesis. Electronically signed by: Ganesh Redd MD 02/08/2025 09:37 AM EDT RP Dictated By: Ganesh Redd MD Signed By: <Electronically signed by Ganesh Redd MD in OV> 02/08/2537 DD/ 4 TD/TT: 02/08/25840 Software Development Leader: BRIANA us [facility] External Provider IMG US PROCEDURES Final Result * CTA Chest PE Protocal (12/25/2024 3:57 PM EDT) Anatomical Region Laterality Modality Body, Chest Computed Tomogra phy 12/25/2024 3:57 PM EDT Narrative 12/25/2024 3:59 PM EDT ? [facility] ?[address] ?[place] [address] ? CT Scan Report ? Signed ? Patient: Norberto Marquez ?MR#: [id number] ? : 1990 ?Acct:[id number] ? Age/Sex: 34 / M ?ADM Date: 12/25/24 ? Loc: HO.ED ? Attending Dr: ? Ordering Physician: Fartun Farris ?? Date of Service: 12/25/24 ?? Procedure(s): CT angio chest PE protocol ?? Accession Number(s): [id number] ? cc: Alba So; Fartun Farris ? Report Number: ?? [id number]: Total DLP = ??181.00 mGy-cm ? CLINICAL HISTORY: sob, cp ? CT angiography chest with contrast. 3D Postprocessing. ? Comparison: CT/NV - CT ANGIO CHEST PE PROTOCOL - [...] DD/ 1557 ? TD/TT: 12/25/24 1557 ? Software Development Leader: ? Procedure Note Donotuseinterpreter, Image - 12/25/[address] [place] [address] [address] Scan Report Signed Patient: Zully Marquez#: [id number] : 1990Acct:[id number] Age/Sex: 34 / MADM Date: 12/25/24 Loc: HO.ED Attending Dr: Ordering Physician: Fartun Farris Date of Service: 12/25/24 Procedure(s): CT angio chest PE protocol Accession Number(s): [id number] cc: Alba So; Fartun Farris Report Number: [id number]: Total DLP = 181.00 mGy-cm CLINICAL HISTORY: sob, cp CT angiography chest with contrast. 3D Postprocessing. Comparison: CT/NV - CT ANGIO CHEST PE PROTOCOL - [...] OV> 12/25/24 1559 DD/ 155 TD/TT: 12/25/241556 Software Development Leader: [facility] External Provider IMG CT PROCEDURES Edited Result - Final * High Sensitivity Troponin I (12/25/2024 2:10 PM EDT) Only the most recent of3 resultswithin the time period is included. Pathologist [facility] TROPONIN I HIGH SENSITIVITY 5.7 <3.5 - 35.0 ng/L [facility] Comment:The Coley high sens itivity Troponin-I results should beused in conjunction with other diagnostic information suchas ECG, clinical observations and information, and patientsymptoms to aid in the diagnosis of CO. 12/25/2024 2:10 PM EDT 12/25/2024 2:12 PM EDT Generic External Data Provider LAB BLOOD ORDERAB LES Final Result [facility] [address] [place] [phone] * (ABNORMAL) VENOUS BLOOD GAS (12/25/2024 9:50 AM EDT) Pathologist [facility] VBG pH 7.40 7.32 - 7.43 [facility] Comment:METER #: [id number] additional_comment: [facility] VBG PCO2 29 mmHg [facility] Comment:METER #: [id number] additional_comment: [facility] VBG PO2 64 mmHg [facility] Comment:METER #: [id number] additional_comment: [facility] VBG Base Excess -5.1 mmol/L [facility] Comment:METER #: [id number] additional_comment: [facility] VBG HCO3 18(L) 22 - 26 mmol/L [facility] Comment:METER #: [id number] additional_comment: [facility] O2 Sat, Bry 91.0 % [facility] Comment:METER #: [id number] additional_comment: [facility] 12/25/2024 9:50 AM EDT 12/25/2024 9:53 AM EDT us Generic External Data Provider LAB BLOOD ORDERAB LES Final Result Performing Organization Address [facility] Co de Phone Number [facility] [address] [place] [phone] * Ethanol (12/25/2024 9:41 AM EDT) ETHANOL (MG/DL) IN SER/PLAS <10 mg/dL [facility] Comment:Serum/plasma ethanol results are to be used formedical/treatment purposes only. 12/25/2024 9:41 AM EDT 12/25/2024 10:02 AM EDT us Generic External Data Provider LAB BLOOD ORDERAB LES Final Result Performing Organization Address [facility] Co de Phone Number [facility] [address] [place] [phone] * Magnesium (12/25/2024 9:41 AM EDT) Magnesium 1.8 1.6 - 2.6 mg/dL [facility] 12/25/2024 9:41 AM EDT 12/25/2024 10:02 AM EDT Generic External Data Provider LAB BLOOD ORDERAB LES Final Result Performing Organization Address [facility] Co de Phone Number [facility] [address] [place] [phone] * Lactic Acid (12/25/2024 9:41 AM EDT) Lactic Acid 1.4 0.5 - 2.0 mmol/L [facility] 12/25/2024 9:41 AM EDT 12/25/2024 9:47 AM EDT us Generic External Data Provider LAB BLOOD ORDERAB LES Final Result [facility] [address] [place] [address] [phone] * (ABNORMAL) Comprehensive Metabolic Panel (12/25/2024 9:41 AM EDT) Only the most recent of2 resultswithin the time period is included. Sodium 140 135 - 145 mmol/L [facility] Potassium 3.8 3.3 - 5.1 mmol/L [facility] Chloride 114(H) 96 - 108 mmol/L [facility] Carbon Dioxide 17(L) 22 - 29 mmol/L [facility] Anion Gap 13 12 - 20 [facility] Urea Nitrogen (BUN) 21(H) 9 - 16 mg/dL [facility] Creatinine, Serum 0.76 0.5 - 1.4 mg/dL [facility] Creatinine Clr Calc Pharmacy 112.0 [facility] Comment:eGFR (calculated fro m the MDRD study equation) and eCrCl(calculated from the Cockcroft-Gault equation) are based ondifferent parameters and may not yield comparable results.If eCrCl result is absurd, please check patient'sheight/weight. Estimated Glomerular Filt Rate >60 [facility] Comment:Chronic Kidney Disea se: Estimated GFR < 60 mL/min/1.83x5Hoyrgj Kidney Disease: Estimated GFR < 15 mL/min/1.73m2 Glucose 75 60 - 115 mg/dL [facility] Calcium 8.9 8.4 - 10.2 mg/dL [facility] Bilirubin, Total 1.2(H) 0.0 - 1.0 mg/dL [facility] Aspartate Amino Transferase 107(H) 5 - 37 U/L [facility] Alanine Aminotransferase 51(H) 0 - 40 U/L [facility] Total Protein 7.9 6.5 - 8.0 g/dL [facility] Albumin Level 3.6 3.5 - 5.0 g/dL [facility] Alkaline Phosphatase 247(H) 39 - 117 U/L [facility] 12/25/2024 9:41 AM EDT 12/25/2024 10:02 AM EDT us Generic External Data Provider LAB BLOOD ORDERAB LES Final Result Performing Organization Address [facility] Co de Phone Number [facility] [address] [place] [phone] * D Dimer High Sensitivity (12/25/2024 9:40 AM EDT) D Dimer High Sensitivity 413 NG/ML [facility] Comment:D-DIMER HS REFERENCE RANGENote: [...] ORDERAB LES Final Result Performing Organization Address [facility] de Phone Number [facility] [address] [place] [phone] * Blood Culture (First) (12/25/2024 9:40 AM EDT) Blood Venous blood specimen / Unknown 12/25/2024 9:40 AM EDT 12/25/2024 9:47 AM EDT Comment:Blood Narrative [facility] - 12/30/2024 11:47 AM EDT Blood Culture (First) No growth after 5 days. Specimen Source: Blood Generic External Data Provider LAB MICROBIOLOGY - GENERAL ORDERABLES Final Result Performing Organization Address [facility]/ZIP Co de Phone Number [facility] [address] [place] [phone] * Blood Culture (Second) (12/25/2024 9:40 AM EDT) Blood Venous blood specimen / Unknown 12/25/2024 9:40 AM EDT 12/25/2024 9:47 AM EDT Comment:Blood Narrative [facility] - 12/30/2024 11:47 AM EDT Blood Culture (Second) No growth after 5 days. Specimen Source: Blood us Generic External Data Provider LAB MICROBIOLOGY - GENERAL ORDERABLES Final Result Performing Organization Address [facility] Co de Phone Number [facility] [address] [place] [phone] * (ABNORMAL) SARS-CoV-2 RNA, Influenza A/B, and RSV RNA, Ql NAAT (12/25/2024 9:40 AM EDT) Only the most recent of2 resultswithin the time period is included. Influenza A PCR NEGATIVE Negative [facility] Influenza B PCR NEGATIVE Negative [facility] Resp Syncy Virus RNA Qual PCR POSITIVE(A) Negative [facility] SARS COV2 PCR NEGATIVE Negative [facility] Comment:All test results mus [...] use by authorized laboratories.Testing performed on the Glide GeneXpert utilizingreal-time RT-PCR.All SARS CoV2 and positive influenza A/B results arereported to [facility]. 12/25/2024 9:40 AM EDT 12/25/2024 9:47 AM EDT us Generic External Data Provider LAB MICROBIOLOGY - GENERAL ORDERABLES Final Result [facility] [address] [place], [place] [phone] * (ABNORMAL) CBC auto differential (12/25/2024 9:40 AM EDT) Only the most recent of2 resultswithin the time period is included. White Blood Count 10.2 4.8 - 10.8 X10*3/uL [facility] Red Blood Count 4.28(L) 4.60 - 5.80 X10*6/uL [facility] Hemoglobin 8.8(L) 14.0 - 18.0 g/dl [facility] Hematocrit 29.5(L) 42.0 - 52.0 % [facility] Mean Corpuscular Volume 68.9(L) 80.0 - 98.0 fL [facility] Mean Corpuscular Hemoglobin 20.6(L) 27.0 - 33.0 pg [facility] Mean Corpuscular HGB Conc 29.8(L) 31.0 - 36.0 g/dl [facility] Red Cell Distribution Width 22.5(H) 11.0 - 16.0 % [facility] Platelet Count 380 160 - 400 X10*3/uL [facility] Mean Platelet Volume 9.4 9.4 - 12.4 fL [facility] Neutrophils Percent Auto 77.4(H) 45 - 73 % [facility] Imm Gran Pct Auto 0.5(H) 0.0 - 0.4 % [facility] Lymphocytes Percent Auto 11.5(L) 20 - 40 % [facility] Monocytes Percent Auto 9.3 2 - 11 % [facility] Eosinophils Percent Auto 0.6 0 - 4 % [facility] Basophils Percent Auto 0.7 0 - 2 % [facility] NRBC Pct Auto 0.3(H) 0.0 - 0.2 /100WBC [facility] Neutrophils Absolute Auto 7.9 2.0 - 8.3 x10*3/uL [facility] Imm Gran Abs Auto 0.05(H) 0.00 - 0.03 X10*3/uL [facility] Lymphocytes Absolute Auto 1.2 1.2 - 4.9 X10*3/uL [facility] Monocytes Absolute Auto 0.9 0.1 - 1.2 X10*3/uL [facility] Eosinophils Absolute Auto 0.1 0.0 - 0.4 X10*3/uL [facility] Basophils Absolute Auto 0.1 0.0 - 0.2 X10*3/uL [facility] NRBC Abs Auto 0.030(H) 0.0 - 0.012 X10*3/uL [facility] 12/25/2024 9:40 AM EDT 12/25/2024 9:47 AM EDT us Generic External Data Provider LAB BLOOD ORDERAB LES Final Result Performing Organization Address City/State/[facility] Co de Phone Number [facility] [address] [place] [phone] * (ABNORMAL) Prothrombin Time-INR (12/25/2024 9:40 AM EDT) Prothrombin Time 21.7(H) 10.9 - 12.4 SEC [facility] INTERNATIONAL NORM RATIO 1.9(H) 0.9 - 1.1 [facility] Comment:INTERNATIONAL NORMAL IZED RATIO [...] Provider LAB BLOOD ORDERAB LES Final Result [facility] [address] [place] [address] [phone] * (ABNORMAL) Drug Monitoring, Panel 1, Screen, Urine (12/25/2024 12:00 AM EST) Opiate Screen Urine Not Detected Not Detect [facility] Comment:Opiate cut-off is 30 0 ng/mL.Positive results are unconfirmed and should not be used fornon-medical purposes. Barbiturates, Urine Not Detected Not Detect [facility] Comment:Barbiturate cut-off is 200 ng/mL.Positive results are unconfirmed and should not be used fornon-medical purposes. Phencyclidine Screen Urine Not Detected Not Detect [facility] Comment:Phencyclidine cut-of f is 25 ng/mL.Positive results are unconfirmed and should not be used fornon-medical purposes. Amphetamine Screen Urine Not Detected Not Detect [facility] Comment:Amphetamine cut-off is 1000 ng/mL.Positive results are unconfirmed and should not be used fornon-medical purposes. Benzodiazepines Screen Urine Not Detected Not Detect [facility] Comment:Benzodiazepine cut-o ff is 200 ng/mL.Positive results are unconfirmed and should not be used fornon-medical purposes. Cocaine Screen Urine POSITIVE(A) Not Detect [facility] Comment:Cocaine cut-off is 3 00 ng/mL.Positive results are unconfirmed and should not be used fornon-medical purposes. Cannabinoid Screen Urine POSITIVE(A) Not Detect [facility] Comment:Cannabinoid cut-off is 50 ng/mL.Positive results are unconfirmed and should not be used fornon-medical purposes. Methadone Screen, Urine Positive(A) Not Detect ng/mL [facility] Comment:Methadone cut-off is 300 ng/mL.Positive results are unconfirmed and should not be used fornon-medical purposes. FENTANYL URINE POSITIVE(A) Not Detect [facility] Comment:Fentanyl cut-off is 1 ng/mL.Positive results are unconfirmed and should not be used fornon-medical purposes. Oxycodone Urine Screen Not Detected Not Detect ng/mL [facility] Comment:Oxycodone cut-off is 100 ng/mL.Positive results are unconfirmed and should not be used fornon-medical purposes. Buprenorphine Screen Not Detected Not Detect ng/mL [facility] Comment:Buprenorphine cut-of f is 5 ng/mL.Positive results are unconfirmed and should not be used fornon-medical purposes. 12/25/2024 12/25/2024 us Generic External Data Provider LAB URINE ORDERAB LES Final Result Performing Organization Address [facility]/ZIP Co de Phone Number [facility] [address] [place] [address] [phone] * HIV-1/2 Antigen and Antibodies, Fourth Generation, with Reflexes (04/08/2024 11:52 AM EDT) HIV AB/AG Nonreactive Nonreactive [facility] Comment:HIV-1 p24 Ag and/or HIV-1/HIV-2 Ab not detected.A test result that is nonreactive does not exclude thepossibility of exposure to or infection with HIV-1 and/orHIV-2. Nonreactive results in this assay for individualswith prior exposure to HIV-1 and/or HIV-2 may be due toantigen and antibody levels that are below the limit ofdetection of this assay.The [employer] HIV Ag/Ab Combo assay result andsupplemental assay results should be interpreted inconjunction with the patient's clinical presentation,history and other laboratory results. If the results areinconsistent with clinical evidence, additional testing issuggested to confirm the result. Blood Venous blood specimen / Unknown 04/08/2024 11:52 AM EDT 04/08/2024 12:58 PM EDT Alba So NP LAB BLOOD ORDERABLES Final Resu lt Performing Organization Address [facility]/ZIP Co de Phone Number [facility] [address] [place] [address] [phone] from Last 3 Months or Most Recently Relevant to Health Maintenance Insurance HSN FULL Care Teams Train Planner Relationship Specialty Start Date End Date Alba So NP [address] [place] [address] PCP - General Family Medicine 04/14/24
--- OUTSIDE RECORDS SUMMARY | 2025-03-02 11:39 | XMS_ITS | Clinical Summary ---
Author Organization [facility] Facility Address [address] [place] [address], [place] [address] Care Team Providers Care Loader Helper Sorting Yard Name Role Phone Unavailable Primary Care Provider [...] age to complete this topic Insurance Medicaid [place]
--- OUTSIDE RECORDS SUMMARY | 2025-03-02 11:39 | XMS_ITS | Encounter Summary ---
Author Organization [employer] Address [address] [facility] [address] [place] [address] Care Team Providers Care Corporate Development Officer Name Role Phone Alba So GENEVA Primary Care Provider [phone] Encounter Details Date Type Department Care Team (Late st Contact Info) Description 04/26/2024 Orders Only [facility] [address] [place], [place] [phone] Varun Givens, PharmD [address] [place] [address] Social History Tobacco Use Types Packs/Day Years [...] documented as of this encounter Care Teams Corporate Development Officer Relationship Specialty Start Date End Date Alba So NP [address] [place] [phone] PCP - General Family Medicine 04/14/24 documented as of this encounter
--- OUTSIDE RECORDS SUMMARY | 2025-03-02 11:39 | XMS_ITS | Encounter Summary ---
Author Organization [employer] Address [address] [facility] [address] [place] [address] Care Team Providers Care Benefits Clerk Name Role Phone Megan Stevenson STARTER MECHANIC Primary Care Provider [phone] Jin Mack AGNP Primary Care Provider Unavail Nirali Diaz STARTER MECHANIC Primary Care Provider [phone] Alba So NP Primary Care Provider [phone] Encounter Details Date Type Department Care Team (Late st Contact Info) Description 01/05/2023 Orders Only [facility] [address] [place] [address] Nohemi Greene FNP Social History Tobacco Use [...] empyema, recurrent bacteremia and endocarditis,was admitted to [facility] on 07/16/22 for evaluation of chest pain [...] mom and was in a program in [place] and [facility] October 23, now lives at home [...] EDT 04/13/2023 3:00 PM EDT Comment:Blood Narrative [facility] - 04/18/2023 5:00 PM EDT Blood Culture (Second) No growth after 5 days. Specimen Source: Blood [facility] Exter nal Provider LAB MICROBIOLOGY - GENERAL ORDERABLES Final Result Performing Organization Address [facility] Co de Phone Number [facility] [address] [place] [phone] * Blood Culture (First) (04/13/2023 2:20 PM EDT) Blood 04/13/2023 2:20 PM EDT 04/13/2023 3:00 PM EDT Comment:Blood Narrative [facility] - 04/18/2023 5:00 PM EDT Blood Culture (First) No growth after 5 days. Specimen Source: Blood [facility] Exter nal Provider LAB MICROBIOLOGY - GENERAL ORDERABLES Final Result Performing Organization Address [facility] de Phone Number [facility] [address] [place] [phone] * (ABNORMAL) Urinalysis, Complete, with Reflex to Culture (03/16/2023 6:50 PM EDT) Color Urine Dark Yellow [facility] Appearance Urine Clear [facility] PH 6.5 5.0 - 9.0 [facility] Glucose Urine UA Negative Negative mg/dL [facility] Urine Blood Small (1+)(A) Negative [facility] Specific [place] - Urine 1.015 1.005 - 1.025 [facility] Urine Protein 100 (2+)(A) Neg-Trace mg/dL [facility] Urine Ketones Negative Negative mg/dL [facility] Nitrite Urine Positive(A) Negative [facility] Leukocyte Esterase Urine Small (1+)(A) Negative [facility] RBC Urine >20(A) 0 - 2 /HPF [facility] Urine WBC 6-10(A) 0 - 5 /HPF [facility] Urine Squamous Epithelial Cell 0-2 0 - 2 /HPF [facility] Urine Bacteria None Seen None Seen [facility] Hyaline Casts, Urine 0-2 0 - 2 /LPF [facility] 03/16/2023 6:50 PM EDT 03/16/2023 7:08 PM EDT Narrative [facility] - 03/16/2023 7:57 PM EDT Urine, Clean Catch us [facility] External Provider LAB URI NE ORDERABLES Final Result [facility] [address] [place] [address] [phone] * (ABNORMAL) CBC auto differential (03/16/2023 5:18 PM EDT) White Blood Count 11.0(H) 4.8 - 10.8 X10*3/uL [facility] Red Blood Count 4.07(L) 4.60 - 5.80 X10*6/uL [facility] Hemoglobin 9.7(L) 14.0 - 18.0 g/dl [facility] Hematocrit 30.7(L) 42.0 - 52.0 % [facility] Mean Corpuscular Volume 75.4(L) 80.0 - 98.0 fL [facility] Mean Corpuscular Hemoglobin 23.8(L) 27.0 - 33.0 pg [facility] Mean Corpuscular HGB Conc 31.6 31.0 - 36.0 g/dl [facility] Red Cell Distribution Width 31.5(H) 11.0 - 16.0 % [facility] Platelet Count 597(H) 160 - 400 X10*3/uL [facility] Mean Platelet Volume 9.8 9.4 - 12.4 fL [facility] Neutrophils Percent Auto 60.7 45 - 73 % [facility] Imm Gran Pct Auto 2.0(H) 0.0 - 0.4 % [facility] Lymphocytes Percent Auto 24.7 20 - 40 % [facility] Monocytes Percent Auto 10.5 2 - 11 % [facility] Eosinophils Percent Auto 1.1 0 - 4 % [facility] Basophils Percent Auto 1.0 0 - 2 % [facility] NRBC Pct Auto 0.0 0.0 - 0.2 /100WBC [facility] Neutrophils Absolute Auto 6.7 2.0 - 8.3 x10*3/uL [facility] Imm Gran Abs Auto 0.22(H) 0.00 - 0.03 X10*3/uL [facility] Lymphocytes Absolute Auto 2.7 1.2 - 4.9 X10*3/uL [facility] Monocytes Absolute Auto 1.2 0.1 - 1.2 X10*3/uL [facility] Eosinophils Absolute Auto 0.1 0.0 - 0.4 X10*3/uL [facility] Basophils Absolute Auto 0.1 0.0 - 0.2 X10*3/uL [facility] NRBC Abs Auto 0.000 0.0 - 0.012 X10*3/uL [facility] 03/16/2023 5:18 PM EDT 03/16/2023 5:24 PM EDT [facility] External Provider LAB BLO OD ORDERABLES Final Result [facility] [address] [place] [phone] * High Sensitivity Troponin I (03/16/2023 5:18 PM EDT) TROPONIN I HIGH SENSITIVITY 11.4 <3.5 - 35.0 ng/L [facility] Comment:The Coley high sens itivity Troponin-I results should beused in conjunction with other diagnostic information suchas ECG, clinical observations and information, and patientsymptoms to aid in the diagnosis of NH. 03/16/2023 5:18 PM EDT 03/16/2023 5:24 PM EDT [facility] External Provider LAB BLO OD ORDERABLES Final Result Performing Organization Address [facility] de Phone Number [facility] [address] [place] [phone] * (ABNORMAL) B Type Natriuretic Peptide (BNP) (03/16/2023 5:18 PM EDT) [facility] B Type Natriuretic Peptide 378(H) <100 pg/mL [facility] Comment:For those patients w ho are being treated with Natrecor(nesiritide, recombinant BNP), BNP testing should beperformed at least two hours post treatment in order toensure that only endogenous levels of BNP are detected. 03/16/2023 5:18 PM EDT 03/16/2023 5:24 PM EDT [facility] External Provider LAB BLO OD ORDERABLES Final Result Performing Organization Address [facility] de Phone Number [facility] [address] [place] [phone] * (ABNORMAL) Lipase (03/16/2023 5:18 PM EDT) [facility] Lipase 168(H) 8 - 78 U/L [facility] 03/16/2023 5:18 PM EDT 03/16/2023 5:24 PM EDT [facility] External Provider LAB BLO OD ORDERABLES Final Result Performing Organization Address [facility] Co de Phone Number [facility] [address] [place] [phone] * (ABNORMAL) Basic Metabolic Panel (03/16/2023 5:18 PM EDT) [facility] Sodium 139 135 - 145 mmol/L [facility] Potassium 3.0(L) 3.3 - 5.1 mmol/L [facility] Chloride 106 96 - 108 mmol/L [facility] Carbon Dioxide 20(L) 22 - 29 mmol/L [facility] Anion Gap 16 12 - 20 [facility] Urea Nitrogen (BUN) 8(L) 9 - 16 mg/dL [facility] Creatinine, Serum 0.74 0.5 - 1.4 mg/dL [facility] Creatinine Clr Calc Pharmacy 131.5 [facility] Comment:eGFR (calculated fro m the MDRD study equation) and eCrCl(calculated from the Cockcroft-Gault equation) are based ondifferent parameters and may not yield comparable results.If eCrCl result is absurd, please check patient'sheight/weight. Estimated Glomerular Filt Rate >60 [facility] Comment:NOTE: For -Am erican individuals, multiply the result by 1.210.Chronic Kidney Disease: Estimated GFR < 60 mL/min/1.84d6Sfqmil Kidney Disease: Estimated GFR < 15 mL/min/1.73m2 Glucose 84 60 - 115 mg/dL [facility] Calcium 9.4 8.4 - 10.2 mg/dL [facility] 03/16/2023 5:18 PM EDT 03/16/2023 5:24 PM EDT [facility] External Provider LAB BLO OD ORDERABLES Final Result [facility] [address] [place] [phone] * (ABNORMAL) Hepatic Function Panel (03/16/2023 5:18 PM EDT) Bilirubin, Total 5.9(H) 0.0 - 1.0 mg/dL [facility] Bilirubin, Direct 3.5(H) 0.0 - 0.5 mg/dL [facility] Aspartate Amino Transferase 19 5 - 37 U/L [facility] Alanine Aminotransferase 13 0 - 40 U/L [facility] Total Protein 7.7 6.5 - 8.0 g/dL [facility] Albumin Level 3.9 3.5 - 5.0 g/dL [facility] Alkaline Phosphatase 154(H) 39 - 117 U/L [facility] 03/16/2023 5:18 PM EDT 03/16/2023 5:24 PM EDT [facility] External Provider LAB BLO OD ORDERABLES Final Result Performing Organization Address [facility] Co de Phone Number [facility] [address] [place] [phone] * Lactic Acid (03/16/2023 5:18 PM EDT) Lactic Acid 1.7 0.5 - 2.0 mmol/L [facility] 03/16/2023 5:18 PM EDT 03/16/2023 5:24 PM EDT [facility] External Provider LAB BLO OD ORDERABLES Final Result Performing Organization Address [facility] Co de Phone Number [facility] [address] [place] [phone] documented in this encounter Visit Diagnoses Not on filedocumented in this encounter Care Teams Benefits Clerk Relationship Specialty Start Date End Date Megan Stevenson FNP PCP - General Family Medicine 03/27/22 04/23/23 Jin Mack AGNP PCP - General Family Medicine 04/24/23 07/08/23 Nirali Lott FNP [address] [place] [address] PCP - General Family Medicine 07/09/23 04/13/24 Alba So NP [address] [place] [address] PCP - General Family Medicine 04/14/24 documented as of this encounter
== END 2025-03-02 10:58 | disposition left against medical advice (07) ==
PROVIDERS: Emergency Provider Emergency Medicine
DX: S81.802A Unspecified open wound, left lower leg, initial encounter (principal); X58.XXXA Exposure to other specified factors, initial encounter; Y93.9 Activity, unspecified; Y92.9 Unspecified place or not applicable; Y99.9 Unspecified external cause status; Z86.718 Personal history of other venous thrombosis and embolism; Z53.29 Procedure and treatment not carried out because of patient's decision for other reasons
CPT/HCPCS: 99282

== ENCOUNTER 2025-03-03 10:13 | Emergency (ER) | payer MEDICAID, SELFPAY ==
[2025-03-03 10:17] VITALS: BP 98/50; PULSE 112; O2SAT 97
[2025-03-03 10:29] VITALS: BP 107/67; PULSE 115; RESP 18; TEMP 36.1; O2SAT 97; BMI 21.0
--- NOTE | 2025-03-03 10:36 | PC.NURSE ---
Last methadone dose verified with Khalida Dc at [facility]. Patient last dosed 03/03 at 11:35am , 115mg .
--- NOTE | 2025-03-03 10:37 | ED_ITS ---
HPI - Wound/Laceration General Chief Complaint: Wound/Laceration Stated Complaint: Burst vericose vein/ Methadone request per ems Time Seen by Provider: 03/03/25 10:16 History of Present Illness HPI narrative: Patient is a 34-year-old male with a history of varicose vein. History of napoleon ysubstance abuse. Currently on methadone. History of prosthetic heart valve patient claims he is on Eliquis. He has been compliant with his medication he was taking a shower noted his left leg to be bleeding was sent to the ED Related Data Home Medications ?Medication ?Instructions ?Recorded ?Confirmed methadone 10 mg/mL oral 115 mg PO DAILY 09/13/24 02/08/25 concentrate (Methadone Intensol) magnesium oxide 400 mg PO DAILY 10/10/24 02/07/25 albuterol sulfate 90 mcg/actuation 2 inh inhalation Q4-6H PRN wheezing 02/07/25 02/07/25 breath activated powder inhaler (ProAir RespiClick) Previous Rx's ?Medication ?Instructions ?Recorded apixaban 5 mg tablet (Eliquis) 5 mg PO BID 30 days #60 tabs 02/09/25 sulfamethoxazole 800 1 tab PO DAILY 2 days #2 tabs 02/09/25 mg-trimethoprim 160 mg tablet (Bactrim DS) Allergies Allergy/AdvReac Type Severity Reaction Status Date / Time No Known Allergies Allergy Verified 03/03/25 10:30 [No Known Allergies*] Review of Systems Review of Systems: No fever no chills no systemic complaints PMFSH Past Medical History Attestation statement: The following information was validated with the patient. Medical History Rhabdomyolysis Anemia LUCERO (acute kidney injury) Polysubstance abuse Opioid use disorder Opioid use disorder, severe, dependence Substance abuse MSSA bacteremia Bacteremia Bacteremia Right heart failure Steatosis, liver Tricuspid valve stenosis Anasarca HCV (hepatitis C virus) Endocarditis Pulmonary embolism Surgical History History of tricuspid valve replacement with bioprosthetic valve Social History Social History Household Members: Other Household Members Other:: [facility] Housing: Homeless Do you presently have visiting nurse or other home services: No Unable to assess alcohol history related to: Unknown Alcohol intake: never Patient Tobacco Use Status: Current everyday Tobacco user Tobacco use type: Cigarette Cigarette Packs Per Day: 0.5 Cigarettes Per Day: 10.0 Years Smoked: 10 Second Hand Smoke Exposure: No Substance Use Type: Crack/Cocaine, Heroin and IV Drugs Advance Directives: Yes Advance Directives on File: Yes Advance Directives Date on File: 04/16/21 service: No Current occupational status: unemployed Physical Exam Vital Signs: Vital Signs: Last Vital Signs Temp 97 F 03/03/25 10:29 Pulse 115 H 03/03/25 10:29 Resp 18 03/03/25 10:29 BP 107/67 03/03/25 10:29 Pulse Ox 97 03/03/25 10:29 O2 Del Method Room Air 03/03/25 10:29 BMI result Body Mass Index 21.0 Appearance: Alert. Oriented X3. No acute distress. Eyes: Pupils equal, round and reactive to light. ENT: Pharynx normal. Neck: Normal inspection. Neck supple. No lymph nodes noted. No crepitus CVS: Normal heart rate and rhythm. Pulses normal. Normal S1 and S2 Respiratory: No respiratory distress. Breath sounds normal. No Wheezing. No rales Abdomen: Soft and nontender. No rigidity. No distention. good BS x4 Skin: Skin warm and dry. Normal skin color. Normal skin turgor. Extremities: Positive varicose vein noted over the left side. There is nothing that is bleeding. In fact we can identify a source of with the bleeding was coming from there is an ulcer on the distal aspect of the left leg approximately 4 cm x 2 cm in size. Appears chronic with granulation tissue at the bottom. The wound was cleaned. Subsequently dressed. Neuro: Oriented X 3. No motor deficit. No sensory deficit. Moving all extermities. No slurred speech Medical Decision Making Medical Decision Making MDM Narrative: Patient in no acute distress. Had a bleeding varicose vein that resolved. Also complained that he missed his methadone. Patient claims that he is on 115 mg. Will verify with the methadone clinic and provide patient with the needed dose as patient was in the ED this morning. Will discharge patient home close follow-up on an outpatient basis. Differential Diagnosis Differential Diagnoses: The differential diagnosis associated with the presentation includes Bleeding varicose vein, narcotic withdrawal Admission/Observation Consideration of admission/observation: Escalation of care including admission/observation considered Lab Data MDM Lab Attestation statement: I reviewed the patient's lab results. 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 Social Determinants Patient?s care significantly limited by Social Determinants of Health including: Alcoholism and drug addiction in family, Problems related to primary support group, Unemployment, Problems related to employment and Other Social Determinant of Health Discharge Plan Discharge Clinical Impression: Bleeding from varicose vein Patient Disposition: Home, Self-Care Instructions: Venous Insufficiency (DC) Additional Instructions: Please keep the wound clean. You were provided with 115 mg of methadone today. Prescriptions: No Action methadone [Methadone Intensol] 10 mg/mL Concentrate 115 mg PO DAILY ProAir RespiClick 90 mcg/actuation aerosol powdr breath activated 2 inh INHALATION Q4-6H PRN (Reason: wheezing) sulfamethoxazole-trimethoprim [Bactrim DS] 800-160 mg tablet 1 tab PO DAILY 2 Days Qty: 2 0RF Eliquis 5 mg tablet 5 mg PO BID 30 Days Qty: 60 0RF magnesium oxide 400 mg magnesium Tablet 400 mg PO DAILY Referrals: [facility] [Provider Group] - 03/10/25 Print Language: Burundian
--- NOTE | 2025-03-03 10:40 | PC.NURSE ---
arrived via ems with dressing in place to left lower leg. Dressing removed by MD, no active bleeding or s/s of infection fro chronic ulcer. Pressure dressing re applied
--- NOTE | 2025-03-03 10:55 | HE.PHANOTE ---
Methadone- Methadone verification for sent up to pharmacy from Trupti Machuca ( RN). Patient receives 115 mg of methadone at [facility] ). L ast dose on 03/02/25 @[id number]
[2025-03-03] MEDS: methADONE HCl 20 MG/2 ML ORAL.CONC 115 MG PO (10:57)
--- NOTE | 2025-03-03 11:07 | PC.NURSE ---
Patient given socks, pants, kaitlin nancy, multiple sandwiches. Became agitated stating that he was not given enough food, Given additional food and discharge paperwork
[2025-03-03 11:10] VITALS: BP 107/67; PULSE 115; RESP 18; TEMP 36.1; O2SAT 97
--- OUTSIDE RECORDS SUMMARY | 2025-03-03 11:13 | XMS_ITS | Clinical Summary ---
Author Organization [facility] Facility Address [address] [place] [address], [place] [address] Care Team Providers Care Visitor Service Assistant Name Role Phone Unavailable Primary Care Provider [...] age to complete this topic Insurance [place]
== END 2025-03-03 11:20 | disposition home or self-care (01) ==
PROVIDERS: Emergency Provider Emergency Medicine Emergency Medical Services
DX: I83.892 Varicose veins of left lower extremity with other complications (principal); F11.20 Opioid dependence, uncomplicated
CPT/HCPCS: 99283

== ENCOUNTER 2025-03-03 20:41 | Inpatient (IN) | payer MEDICAID, SELFPAY ==
--- NOTE | ~2025-03-03 | US_ITS ---
CLINICAL HISTORY: cirrhosis ?ascites check --- US abdomen limited Comparison: None Findings: Limited evaluation for ascites demonstrates a moderate volume ascites, most pronounced within the right lower quadrant. Impression: Moderate ascites. This document has been electronically signed by: Bebeto Irizarry MD on 03/04/2025 15:07:09
--- NOTE | ~2025-03-03 | XR_ITS ---
CLINICAL HISTORY: cp 1 view chest x-ray Comparison:[Chest x-ray from 01/24/2025, and Chest x-ray from 10/18/2024. Findings: Left-sided metallic leads appear banded. These are considered not safe for MRI. No significant change in imaged mediastinum with post sternotomy changes again noted. Pulmonary opacities are new/worsening and nonspecific with a right hilar predominance concerning for pneumonitis. Atypical edema also considered. No pneumothorax or pleural effusion in this one view study. No definite osseous change in the [id number]. IMPRESSION: Pulmonary opacities, including right hilar region, concerning for pneumonitis. This document has been electronically signed by: Kenneth Payton MD on 03/03/2025 22:07:20
--- NOTE | ~2025-03-03 | US_ITS ---
CLINICAL HISTORY: ? DVT --- Additional Notes or Special Instructions: pt not compliant with eliquis Venous duplex ultrasound bilateral lower extremity Comparison: None Findings: The visualized deep veins are fully compressible, without echogenic or acute thrombus . Question pulsatile flow in multiple veins. This may be accentuated by adjacent arteries. Differential considerations also include findings of congestive heart failure and/or poor cardiac output.. No popliteal cyst. IMPRESSION: 1. Negative for bilateral lower extremity deep vein thrombosis. This document has been electronically signed by: Kenneth Payton MD on 03/04/2025 02:07:12
--- NOTE | 2025-03-03 20:46 | PC.NURSE ---
safety search being done by [employer]
[2025-03-03 20:48] VITALS: BP 162/100; PULSE 123; O2SAT 93; BMI 24.4
--- NOTE | 2025-03-03 20:56 | ECG_ITS ---
Test Reason : chest pain Blood Pressure : */* mmHG Vent. Rate : 113 BPM Atrial Rate : 113 BPM P-R Int : 128 ms QRS Dur : 92 ms QT Int : 384 ms P-R-T Axes : 83 67 -18 degrees QTcB Int : 526 ms Sinus tachycardia Incomplete right bundle branch block T wave abnormality, consider anterolateral ischemia Prolonged QT Abnormal ECG When compared with ECG of 07-Feb-2025 09:30, T wave inversion more evident in Anterolateral leads Referred By: Generic ED Physician Electronically Signed By: ANGÉLICA VILLANUEVA MD
--- OUTSIDE RECORDS SUMMARY | 2025-03-03 21:06 | XMS_ITS | Encounter Summary ---
Author Organization [employer] Address [address] [facility] 7t [place] [address] Care Team Providers Care Quarrying Specialist Name Role Phone Nirali Lott Primary Care Provider [phone] Alba So NP Primary Care Provider [phone] Reason for Visit * Reason Onset Date Comments Referral 10/16/2023 Encounter Details Date Type Department Care Team ([facility] st Contact Info) Description 10/16/2023 Telephone [facility]INE [address] [place] [address] Nirali Lott FNP [address] [place] [address] Referral Social History Tobacco Use Types Packs/Day [...] - 10/16/2023 10:22 AM EST Tc from [facility] ortho never received referral. documented in this encounter Plan of Treatment Not on file documented as of this encounter Visit Diagnoses Not on filedocumented in this encounter Additional Health Concerns Assessment Noted Time PHQ-9 Depression Total Score: 0 06/03/20 23 10:05 AM EDT documented as of this encounter Care Teams Quarrying Specialist Relationship Specialty Start Date End Date Nirali Lott FNP [address] [place] [address] PCP - General Family Medicine 07/09/23 04/13/24 Alba So NP [address] [place] [address] PCP - General Family Medicine 04/14/24 documented as of this encounter
--- OUTSIDE RECORDS SUMMARY | 2025-03-03 21:06 | XMS_ITS | Encounter Summary ---
Author Organization [employer] Address [address] [facility] 7t [place] [address] Care Team Providers Care Sales Manager Name Role Phone Nirali Lott Primary Care Provider [phone] Alba So NP Primary Care Provider [phone] Reason for Visit * Reason Onset Date Comments PT1 10/02/2023 Encounter Details Date Type Department Care Team ([facility] st Contact Info) Description 10/02/2023 Telephone [facility] MED[facility]INE [address] [place] [address] Nirali Lott FNP [address] [place] [address] PT1 Social History Tobacco Use Types Packs/Day [...] 10/02/2023 11:00 AM EST PT-1 Request Number [id number] is Pending * Telephone Encounter - Christine Mak - 10/02/2023 10:32 AM EST Tc from [facility] with ICP requesting PT1 transportation. Date: 10/20/2022 Time: 10:15 Visits: 12 a year Address: [address] [place] [address] Facility: [facility] Wheel Chair: n/a Medical Center Representative Needed: n/a documented in this encounter Plan of Treatment Not on file documented as of this encounter Visit Diagnoses Not on filedocumented in this encounter Additional Health Concerns Assessment Noted Time PHQ-9 Depression Total Score: 0 06/03/20 10:05 AM EDT documented as of this encounter Care Teams Sales Manager Relationship Specialty Start Date End Date Nirali Lott FNP [address] [place] [address] PCP - General Family Medicine 07/09/23 04/13/24 Alba So NP [address] [place] [address] PCP - General Family Medicine 04/14/24 documented as of this encounter
--- OUTSIDE RECORDS SUMMARY | 2025-03-03 21:06 | XMS_ITS | Encounter Summary ---
Author Organization [employer] Address 75 [facility] 7t [place] [address] Care Team Providers Care Cartographic Technician Name Role Phone Alba So NP Primary Care Provider [phone] Reason for Visit * Reason Onset Date Comments Hospital Follow-up 09/30/2024 Encounter Details Date Type Department Care Team ([facility] st Contact Info) Description 09/30/2024 Telephone [facility] MEDICINE [address] [place] [address] Alba So NP [address] [place] [address] Hospital Follow-up Social History Tobacco Use Types [...] from pt requesting a HDF appt. Hospital: [facility] Date of admission: 09/23/24 Discharge date: 09/29/24 Diagnosed: Pneumonia / SOB / Chest pain *Send message to [place] Clinical Care Coordinators documented in this encounter Plan of Treatment Not on file documented as of this encounter Visit Diagnoses Not on filedocumented in this encounter Additional Health Concerns Assessment Noted Time PHQ-9 Depression Total Score: 0 06/03/20 23 10:05 AM EDT documented as of this encounter Care Teams Cartographic Technician Relationship Specialty Start Date End Date Alba So NP [address] [place] [phone] PCP - General Family Medicine 04/14/24 documented as of this encounter
--- OUTSIDE RECORDS SUMMARY | 2025-03-03 21:06 | XMS_ITS | Encounter Summary ---
Author Organization [employer] Address 75 [facility] 7t [place] [address] Care Team Providers Care Preventive Medicine Physician Name Role Phone Nirali Lott Primary Care Provider [phone] Alba So NP Primary Care Provider [phone] Encounter Details Date Type Department Care Team (Late st Contact Info) Description 10/27/2023 Orders Only [facility] [address] [place] [address] Nirali Lott FNP [address] [place] [address] Infective endocarditis of tricuspid valve (Primary Dx) [...] t he electric, gas, oil or water [facility] threatened to shut off services in your [...] EST Narrative 11/02/2023 11:06 AM EST ? [facility] ?[address] ?[place] [address] ? CT Scan Report ? Signed ? Patient: Norberto Marquez ?MR#: [id number] ? : 1990 ?Acct:[id number] ? Age/Sex: 33 / M ?ADM Date: 10/27/23 ? Loc: HO.CT ? Attending Dr: Randa Chisholm MD ? Ordering Physician: Randa Chisholm MD ?? Date of Service: 10/27/23 ?? Procedure(s): CT liver 3 phase ?? Accession Number(s): [id number] ? cc: Randa Chisholm MD; [facility] ? EXAMINATION: ?? CT ABDOMEN without [...] 11/02/231100 ? DD/ 1635 ? TD/TT: ? Road Roller Operator: SS ? Procedure Note [place], Image - 11/03/[address] [place] [address] [address] Scan Report Signed Patient: Zully Marquez#: [id number] : 1990Acct:[id number] Age/Sex: 33 / MADM Date: 10/27/23 Loc: HO.CT Attending Dr: Randa Chisholm MD Ordering Physician: Ranad Chisholm MD Date of Service: 10/27/23 Procedure(s): CT liver 3 phase Accession Number(s): [id number] cc: Randa Chisholm MD; [facility] EXAMINATION: CT ABDOMEN without and WITH [...] in OV> 01/15/24 1101 DD/ 1635 TD/TT: Road Roller Operator: ELIEZER [facility] External Provider IMG CT PROCEDURES Final Result documented in this encounter Visit Diagnoses Diagnosis Infective endocarditis of tricuspid valve- Primary documented in this encounter Additional Health Concerns Assessment Noted Time PHQ-9 Depression Total Score: 0 06/03/20 10:05 AM EDT documented as of this encounter Care Teams Preventive Medicine Physician Relationship Specialty Start Date End Date Nirali Lott FNP [address] [place] [address] PCP - General Family Medicine 07/09/23 04/13/24 Alba So NP [address] [place] [address] PCP - General Family Medicine 04/14/24 documented as of this encounter
--- OUTSIDE RECORDS SUMMARY | 2025-03-03 21:06 | XMS_ITS | Encounter Summary ---
Author Organization [employer] Address 75 [facility] 7t [place] [address] Care Team Providers Care Human Resource Analyst Name Role Phone Alba So ELECTROPHYSIOLOGY TECH Primary Care Provider [phone] Reason for Visit * Reason Comments Care Coordination C3/CM Outreach Encounter Details Date Type Department Care Team (Latest Contact Info) Description 02/28/2025 Patient Outreach [facility] [address] [place] [address] Alba So NP [address] [place] [address] Care Coordination (C3/CM Outreach) Social History Tobacco [...] documented as of this encounter Care Teams Human Resource Analyst Relationship Specialty Start Date End Date Alba So NP [address] [place] [address] PCP - General Family Medicine 04/14/24 documented as of this encounter
--- OUTSIDE RECORDS SUMMARY | 2025-03-03 21:06 | XMS_ITS | Encounter Summary ---
Author Organization [employer] Address [address] [facility] 7t [place] [address] Care Team Providers Care Spectral Scientist Name Role Phone Alba So GENEVA Primary Care Provider [phone] Encounter Details Date Type Department Care Team (Late st Contact Info) Description 04/26/2024 Orders Only [facility] MEDICINE [address] [place], [place] [phone] Varun Givens, PharmD [address] [place] [address] Social History Tobacco Use Types Packs/Day Years [...] with others, in a hotel, in a correction, living outside on the street, on a [...] documented as of this encounter Care Teams Spectral Scientist Relationship Specialty Start Date End Date Alba So NP [address] [place] [address] PCP - General Family Medicine 04/14/24 documented as of this encounter
--- OUTSIDE RECORDS SUMMARY | 2025-03-03 21:07 | XMS_ITS | Encounter Summary ---
Author Organization [employer] Address [address] [facility] 7t [place] [address] Care Team Providers Care Court Operations Clerk Name Role Phone Megan Stevenson BELLMAN CAPTAIN Primary Care Provider [phone] Jin Mack AGNP Primary Care Provider Unavail Nirali Diaz BELLMAN CAPTAIN Primary Care Provider [phone] Alba So NP Primary Care Provider [phone] Encounter Details Date Type Department Care Team (Late st Contact Info) Description 01/05/2023 Orders Only [facility] [address] [place] [address] Nohemi Greene FNP Social History Tobacco Use [...] empyema, recurrent bacteremia and endocarditis,was admitted to [facility] on 07/16/22 for evaluation [...] mom and was in a program [facility] [place] [facility], now lives at [...] EDT 04/13/2023 3:00 PM EDT Comment:Blood Narrative [facility] - 04/18/2023 5:00 PM EDT Blood Culture (Second) No growth after 5 days. Specimen Source: Blood [facility] Exter nal Provider LAB MICROBIOLOGY - GENERAL ORDERABLES Final Result Performing Organization Address [facility] Co de Phone Number [facility] [address] [place] [phone] * Blood Culture (First) (04/13/2023 2:20 PM EDT) Blood 04/13/2023 2:20 PM EDT 04/13/2023 3:00 PM EDT Comment:Blood Narrative [facility] - 04/18/2023 5:00 PM EDT Blood Culture (First) No growth after 5 days. Specimen Source: Blood [facility] Exter nal Provider LAB MICROBIOLOGY - GENERAL ORDERABLES Final Result Performing Organization Address [facility] de Phone Number [facility] [address] [place] [phone] * (ABNORMAL) Urinalysis, Complete, with Reflex to Culture (03/16/2023 6:50 PM EDT) Color Urine Dark Yellow [facility] Appearance Urine Clear [facility] PH 6.5 5.0 - 9.0 [facility] Glucose Urine UA Negative Negative mg/dL [facility] Urine Blood Small (1+)(A) Negative [facility] Specific [place] - Urine 1.015 1.005 - 1.025 [facility] Urine Protein 100 (2+)(A) Neg-Trace mg/dL [facility] Urine Ketones Negative Negative mg/dL [facility] Nitrite Urine Positive(A) Negative [facility] Leukocyte Esterase Urine Small (1+)(A) Negative [facility] RBC Urine >20(A) 0 - 2 /HPF [facility] Urine WBC 6-10(A) 0 - 5 /HPF [facility] Urine Squamous Epithelial Cell 0-2 0 - 2 /HPF [facility] Urine Bacteria None Seen None Seen [facility] Hyaline Casts, Urine 0-2 0 - 2 /LPF [facility] 03/16/2023 6:50 PM EDT 03/16/2023 7:08 PM EDT Narrative [facility] - 03/16/2023 7:57 PM EDT Urine, Clean Catch us [facility] External Provider LAB URI NE ORDERABLES Final Result [facility] [address] [place] [phone] [phone] * (ABNORMAL) CBC auto differential (03/16/2023 5:18 PM EDT) White Blood Count 11.0(H) 4.8 - 10.8 X10*3/uL [facility] Red Blood Count 4.07(L) 4.60 - 5.80 X10*6/uL [facility] Hemoglobin 9.7(L) 14.0 - 18.0 g/dl [facility] Hematocrit 30.7(L) 42.0 - 52.0 % [facility] Mean Corpuscular Volume 75.4(L) 80.0 - 98.0 fL [facility] Mean Corpuscular Hemoglobin 23.8(L) 27.0 - 33.0 pg [facility] Mean Corpuscular HGB Conc 31.6 31.0 - 36.0 g/dl [facility] Red Cell Distribution Width 31.5(H) 11.0 - 16.0 % [facility] Platelet Count 597(H) 160 - 400 X10*3/uL [facility] Mean Platelet Volume 9.8 9.4 - 12.4 fL [facility] Neutrophils Percent Auto 60.7 45 - 73 % [facility] Imm Gran Pct Auto 2.0(H) 0.0 - 0.4 % [facility] Lymphocytes Percent Auto 24.7 20 - 40 % [facility] Monocytes Percent Auto 10.5 2 - 11 % [facility] Eosinophils Percent Auto 1.1 0 - 4 % [facility] Basophils Percent Auto 1.0 0 - 2 % [facility] NRBC Pct Auto 0.0 0.0 - 0.2 /100WBC [facility] Neutrophils Absolute Auto 6.7 2.0 - 8.3 x10*3/uL [facility] Imm Gran Abs Auto 0.22(H) 0.00 - 0.03 X10*3/uL [facility] Lymphocytes Absolute Auto 2.7 1.2 - 4.9 X10*3/uL [facility] Monocytes Absolute Auto 1.2 0.1 - 1.2 X10*3/uL [facility] Eosinophils Absolute Auto 0.1 0.0 - 0.4 X10*3/uL [facility] Basophils Absolute Auto 0.1 0.0 - 0.2 X10*3/uL [facility] NRBC Abs Auto 0.000 0.0 - 0.012 X10*3/uL [facility] 03/16/2023 5:18 PM EDT 03/16/2023 5:24 PM EDT [facility] External Provider LAB BLO OD ORDERABLES Final Result [facility] [address] [place] [phone] * High Sensitivity Troponin I (03/16/2023 5:18 PM EDT) TROPONIN I HIGH SENSITIVITY 11.4 <3.5 - 35.0 ng/L [facility] Comment:The [place] high sens itivity Troponin-I results should beused in conjunction with other diagnostic information suchas ECG, clinical observations and information, and patientsymptoms to aid in the diagnosis of [place]. 03/16/2023 5:18 PM EDT 03/16/2023 5:24 PM EDT [facility] External Provider LAB BLO OD ORDERABLES Final Result Performing Organization Address [facility] de Phone Number [facility] [address] [place] [phone] * (ABNORMAL) B Type Natriuretic Peptide (BNP) (03/16/2023 5:18 PM EDT) [facility] B Type Natriuretic Peptide 378(H) <100 pg/mL [facility] Comment:For those patients w ho are being treated with Natrecor(nesiritide, recombinant BNP), BNP testing should beperformed at least two hours post treatment in order toensure that only endogenous levels of BNP are detected. 03/16/2023 5:18 PM EDT 03/16/2023 5:24 PM EDT [facility] External Provider LAB BLO OD ORDERABLES Final Result Performing Organization Address [facility] de Phone Number [facility] [address] [place] [phone] [phone] * (ABNORMAL) Lipase (03/16/2023 5:18 PM EDT) [facility] Lipase 168(H) 8 - 78 U/L [facility] 03/16/2023 5:18 PM EDT 03/16/2023 5:24 PM EDT [facility] External Provider LAB BLO OD ORDERABLES Final Result Performing Organization Address [facility] Co de Phone Number [facility] [address] [place] [phone] * (ABNORMAL) Basic Metabolic Panel (03/16/2023 5:18 PM EDT) [facility] Sodium 139 135 - 145 mmol/L [facility] Potassium 3.0(L) 3.3 - 5.1 mmol/L [facility] Chloride 106 96 - 108 mmol/L [facility] Carbon Dioxide 20(L) 22 - 29 mmol/L [facility] Anion Gap 16 12 - 20 [facility] Urea Nitrogen (BUN) 8(L) 9 - 16 mg/dL [facility] Creatinine, Serum 0.74 0.5 - 1.4 mg/dL [facility] Creatinine Clr Calc Pharmacy 131.5 [facility] Comment:eGFR (calculated fro m the MDRD study equation) and eCrCl(calculated from the Cockcroft-Gault equation) are based ondifferent parameters and may not yield comparable results.If eCrCl result is absurd, please check patient'sheight/weight. Estimated Glomerular Filt Rate >60 [facility] Comment:NOTE: For -Am erican individuals, multiply the result by 1.210.Chronic Kidney Disease: Estimated GFR < 60 mL/min/1.17m5Rxspek Kidney Disease: Estimated GFR < 15 mL/min/1.73m2 Glucose 84 60 - 115 mg/dL [facility] Calcium 9.4 8.4 - 10.2 mg/dL [facility] 03/16/2023 5:18 PM EDT 03/16/2023 5:24 PM EDT [facility] External Provider LAB BLO OD ORDERABLES Final Result [facility] [address] [place] [phone] * (ABNORMAL) Hepatic Function Panel (03/16/2023 5:18 PM EDT) Bilirubin, Total 5.9(H) 0.0 - 1.0 mg/dL [facility] Bilirubin, Direct 3.5(H) 0.0 - 0.5 mg/dL [facility] Aspartate Amino Transferase 19 5 - 37 U/L [facility] Alanine Aminotransferase 13 0 - 40 U/L [facility] Total Protein 7.7 6.5 - 8.0 g/dL [facility] Albumin Level 3.9 3.5 - 5.0 g/dL [facility] Alkaline Phosphatase 154(H) 39 - 117 U/L [facility] 03/16/2023 5:18 PM EDT 03/16/2023 5:24 PM EDT [facility] External Provider LAB BLO OD ORDERABLES Final Result Performing Organization Address City/[facility] Co de Phone Number [facility] [address] [place] [phone] * Lactic Acid (03/16/2023 5:18 PM EDT) Lactic Acid 1.7 0.5 - 2.0 mmol/L [facility] 03/16/2023 5:18 PM EDT 03/16/2023 5:24 PM EDT [facility] External Provider LAB BLO OD ORDERABLES Final Result Performing Organization Address City/[facility] Co de Phone Number [facility] [address] [place] [address] [phone] documented in this encounter Visit Diagnoses Not on filedocumented in this encounter Care Teams Court Operations Clerk Relationship Specialty Start Date End Date Megan Stevenson FNP PCP - General Family Medicine 03/27/22 04/23/23 Jin Mack AGNP PCP - General Family Medicine 04/24/23 07/08/23 Nirali Lott FNP [address] [place] [address] PCP - General Family Medicine 07/09/23 04/13/24 Alba So NP [address] [place] [address] PCP - General Family Medicine 04/14/24 documented as of this encounter
--- OUTSIDE RECORDS SUMMARY | 2025-03-03 21:07 | XMS_ITS | Clinical Summary ---
Author Organization [facility] Facility Address [address] [place] [address], [place] [address] Care Team Providers Care Adjunct Instructor In Economics Name Role Phone Unavailable Primary Care Provider [...] age to complete this topic Insurance [place]
--- OUTSIDE RECORDS SUMMARY | 2025-03-03 21:07 | XMS_ITS ---
Author Organization [employer] Address [address] [facility] 7t [place] [address] Care Team Providers Care Supervisor Clam Bed Name Role Phone Alba So NP Primary Care Provider [phone] CH[facility] Complex Status:Closed (Closed) Start date:01/11/2025 Enrollment reason:ADT Feed End date:02/28/2025 Close reason:Cannot Reach Overview ADT- [place] [facility] [place]. Continued Care and Services Coordination
--- OUTSIDE RECORDS SUMMARY | 2025-03-03 21:07 | XMS_ITS ---
Author Organization [employer] Address 75 [facility] [address]t [place] [address] Care Team Providers Care Carpenter Repair Name Role Phone Alba So NP Primary Care Provider [phone] CM Complex Status:Closed (Closed) Start date:01/11/2025 Enrollment reason:ADT Feed End date:02/28/2025 Close reason:Cannot Reach Overview ADT- [place] [facility] [place]. Continued Care and Services Coordination
--- OUTSIDE RECORDS SUMMARY | 2025-03-03 21:07 | XMS_ITS | Clinical Summary ---
Author Organization [employer] Address [address] [facility] [address] [place] [address] Care Team Providers Care Television Cable Installer Name Role Phone Alba So GENEVA Primary Care Provider [phone] Allergies No known active allergies Medications * [...] treatment, ambulance called [facility]. 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 03/16/23-04/15/23 (anticipated discharge date) Anemia, chronic disease 10/09/2022 Symptomatic anemia 10/09/2022 Overview (10/09/2022): Acute anemia related to tooth extractions on 10/01/22 while still on xarelto for anticoagulation. Taken to [facility], bleeding gums, not able to stop with pressure Hemoglobin 3 Received 1 prbc transfusion Transferred to [facility] for admission on 10/02/22. Received another transfusion Discharged 10/06/22 Ascites 07/21/2022 Bacteremia 07/21/2022 Overview (04/18/2023): Recurrent bacteremia and endocarditis found 03/04/23. Admitted. Left AMA on 03/14/23 Returned 03/15/23. Admitted again with plan to transfer to [facility], [facility], to continue antibiotics until 04/15 to [...] Heroin dependence 06/27/2022 Overview (08/23/2024): Admitted to [facility] for rehab Treated w/ Methadone [address] [facility] 03/16/23-04/15/23 -referred to [facility] 08/23/24 Assessment & Plan (08/23/2024 2:45 PM EST): Admitted to [facility] for rehab Treated w/ Methadone 40 mg [...] arrived. 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 I will place a referral to our [facility] hep c team. Encounters * This document contains information received from the source organization and may not represent a complete record from that organization. Date Type Department Care Team Description 02/28/2025 Patient Outreach [facility] [address] [place] [address] Alba So NP Care Coordination (C3/CM Outreach) 02/17/2025 Refill [facility] [address] [place] [phone] Alba So NP History of artificial heart valve 02/14/2025 Patient Outreach [facility] [address] [place] [address] Alba So NP Care Coordination (C3/CM Outreach) 02/13/2025 Telephone [facility] [address] [place] [phone] Alba So NP No Show (Patient no show for HDF ) 02/10/[address] [address] Tina Johnston MA Chart Prep 02/10/2025 Patient Outreach [facility] [address] [place] [address] Alba So NP 02/07/2025 Orders Only [facility] External Provider, [facility] 02/01/2025 Telephone [facility] [address] [place] [phone] Alba So NP 01/30/2025 Patient Outreach [address] [address] Alba So NP Transition Of Care (Tcm) 01/27/[address] [address] Alba So NP No Show (Patient no show for HDF ) 01/25/2025 Patient Outreach [facility] [address] [place] [address] Alba So NP 01/24/[address] [address] Anastacio Braxton MA chartprep 01/24/2025 Patient Outreach [address] [address] Alba So NP 01/23/2025 Patient Outreach [address] [address] Alba So NP Care Coordination ([facility] outreach for SDOH PT-1 and food needs-LVM ) 01/19/2025 Patient Outreach [address] [address] Alba So NP Transition Of Care (Tcm) (HDF scheduled and SDOH screening positive and Tobacco screening positive) 01/17/2025 Patient Outreach [address] [address] Alba So NP Care Coordination (Outreach) 01/16/2025 Patient Outreach [address] [address] Alba So NP Transition Of Care (Tcm) (HDF unscheduled) 01/11/2025 Patient Outreach [address] [address] Alba So NP Care Coordination (Outreach) 01/11/2025 Patient Outreach [address] [address] Alba So NP Care Coordination (C3/CM Chart Review) 01/11/2025 Patient Outreach [facility] [address] [place] [address] Alba So NP Care Coordination (C3CM Chart review) 01/11/2025 Patient Outreach [address] [address] Alba So NP 12/30/2024 Population Health Risk Score [facility] (C3) Department [address] [phone] Provider, Population Health Generic 12/25/2024 Orders Only GENERIC EXTERNAL DATA DEPARTMENT Provider, Generic External Data 12/22/2024 Telephone [facility] [address] [place] [address] Alba So NP 12/21/2024 Orders Only [facility] [address] [place] [address] Alba So NP 12/20/2024 Telephone [facility] [address] [place] [phone] Beth Fong RN 12/20/2024 Patient Outreach [facility] [address] [place] [address] Alba So NP Transition Of Care (Tcm) 12/19/2024 Refill [facility] [address] [place] [address] Astrid Becker NP History of artificial heart [...] EDT Narrative 02/08/2025 9:41 AM EDT ? [facility] ?[address] ?[place] [address] ? Ultrasound Report ? Signed ? Patient: Norberto Marquez ?MR#: [id number] ? : 1990 ?Acct:[id number] ? Age/Sex: 34 / M ?ADM Date: 02/07/25 ? Loc: HO.S3 ?379-1 ? Attending Dr: Fransisca PANDA ? Ordering Physician: Alana Chan ?? Date of Service: 02/08/25 ?? Procedure(s): US abdomen limited ?? Accession Number(s): [id number] ? cc: [facility]; Alana Chan ? EXAMINATION: ?? US ABDOMEN [...] manner 1% lidocaine was inserted. 8 5 [place] Yueh ?? catheter was advanced through the [...] DD/ 0815 ? TD/TT: 02/08/25 0841 ? Continuous Crusher Operator: MSM ? Procedure Note Donchauter, Image - 02/08/2025 [place] [address] Ultrasound Report Signed Patient: Zully Marquez#: [id number] : 1990Acct:[id number] Age/Sex: 34 / MADM Date: 02/07/25 Loc: .S3 379-[address]: Fransisca PANDA Ordering Physician: Alana Chan Date of Service: 02/08/25 Procedure(s): US abdomen limited Accession Number(s): [id number] cc: [facility]; Alana Chan EXAMINATION: US ABDOMEN LIMITED CLINICAL [...] manner 1% lidocaine was inserted. 8 5 [place] Yueh catheter was advanced through the skin [...] in OV> 02/08/2537 DD/ 4 TD/TT: 02/08/25840 Continuous Crusher Operator: BRIANA us [facility] External Provider IMG US PROCEDURES Final Result * CTA Chest PE Protocal (12/25/2024 3:57 PM EDT) Anatomical Region Laterality Modality Body, Chest Computed Tomogra phy 12/25/2024 3:57 PM EDT Narrative 12/25/2024 3:59 PM EDT ? [facility] ?[address] ?[place] [address] ? CT Scan Report ? Signed ? Patient: Norberto Marquez ?MR#: [id number] ? : 1990 ?Acct:[id number] ? Age/Sex: 34 / M ?ADM Date: 12/25/24 ? Loc: HO.ED ? Attending Dr: ? Ordering Physician: Fartun Farris ?? Date of Service: 12/25/24 ?? Procedure(s): CT angio chest PE protocol ?? Accession Number(s): [id number] ? cc: Alba So; Fartun Farris ? Report Number: ?? [id number]: Total DLP = ??181.00 mGy-cm ? CLINICAL HISTORY: sob, cp ? CT angiography chest with contrast. 3D Postprocessing. ? Comparison: CT/KS - CT ANGIO CHEST PE PROTOCOL - [...] DD/ 1557 ? TD/TT: 12/25/24 1557 ? Continuous Crusher Operator: ? Procedure Note Donotuseinterpreter, Image - 12/25/[address] [place] [address] [address] Scan Report Signed Patient: Zully Marquez#: [id number] : 1990Acct:[id number] Age/Sex: 34 / MADM Date: 12/25/24 Loc: HO.ED Attending Dr: Ordering Physician: Fartun Farris Date of Service: 12/25/24 Procedure(s): CT angio chest PE protocol Accession Number(s): [id number] cc: Alba So; Fartun Farris Report Number: [id number]: Total DLP = 181.00 mGy-cm CLINICAL HISTORY: sob, cp CT angiography chest with contrast. 3D Postprocessing. Comparison: CT/KS - CT ANGIO CHEST PE PROTOCOL - [...] OV> 12/25/24 1559 DD/ 155 TD/TT: 12/25/241556 Continuous Crusher Operator: [facility] External Provider IMG CT PROCEDURES Edited Result - Final * High Sensitivity Troponin I (12/25/2024 2:10 PM EDT) Only the most recent of3 resultswithin the time period is included. Pathologist [facility] TROPONIN I HIGH SENSITIVITY 5.7 <3.5 - 35.0 ng/L [facility] Comment:The Coley high sens itivity Troponin-I results should beused in conjunction with other diagnostic information suchas ECG, clinical observations and information, and patientsymptoms to aid in the diagnosis of AK. 12/25/2024 2:10 PM EDT 12/25/2024 2:12 PM EDT Generic External Data Provider LAB BLOOD ORDERAB LES Final Result [facility] [address] [place] [phone] * (ABNORMAL) VENOUS BLOOD GAS (12/25/2024 9:50 AM EDT) Pathologist [facility] VBG pH 7.40 7.32 - 7.43 [facility] Comment:METER #: [id number] additional_comment: [facility] VBG PCO2 29 mmHg [facility] Comment:METER #: [id number] additional_comment: [facility] VBG PO2 64 mmHg [facility] Comment:METER #: [id number] additional_comment: [facility] VBG Base Excess -5.1 mmol/L [facility] Comment:METER #: [id number] additional_comment: [facility] VBG HCO3 18(L) 22 - 26 mmol/L [facility] Comment:METER #: [id number] additional_comment: [facility] O2 Sat, Bry 91.0 % [facility] Comment:METER #: [id number] additional_comment: [facility] 12/25/2024 9:50 AM EDT 12/25/2024 9:53 AM EDT us Generic External Data Provider LAB BLOOD ORDERAB LES Final Result Performing Organization Address [facility] Co de Phone Number [facility] [address] [place] [phone] * Ethanol (12/25/2024 9:41 AM EDT) ETHANOL (MG/DL) IN SER/PLAS <10 mg/dL [facility] Comment:Serum/plasma ethanol results are to be used formedical/treatment purposes only. 12/25/2024 9:41 AM EDT 12/25/2024 10:02 AM EDT us Generic External Data Provider LAB BLOOD ORDERAB LES Final Result Performing Organization Address [facility] Co de Phone Number [facility] [address] [place] [phone] * Magnesium (12/25/2024 9:41 AM EDT) Magnesium 1.8 1.6 - 2.6 mg/dL [facility] 12/25/2024 9:41 AM EDT 12/25/2024 10:02 AM EDT Generic External Data Provider LAB BLOOD ORDERAB LES Final Result Performing Organization Address [facility] Co de Phone Number [facility] [address] [place] [phone] * Lactic Acid (12/25/2024 9:41 AM EDT) Lactic Acid 1.4 0.5 - 2.0 mmol/L [facility] 12/25/2024 9:41 AM EDT 12/25/2024 9:47 AM EDT us Generic External Data Provider LAB BLOOD ORDERAB LES Final Result [facility] [address] [place] [phone] * (ABNORMAL) Comprehensive Metabolic Panel (12/25/2024 9:41 AM EDT) Only the most recent of2 resultswithin the time period is included. Sodium 140 135 - 145 mmol/L [facility] Potassium 3.8 3.3 - 5.1 mmol/L [facility] Chloride 114(H) 96 - 108 mmol/L [facility] Carbon Dioxide 17(L) 22 - 29 mmol/L [facility] Anion Gap 13 12 - 20 [facility] Urea Nitrogen (BUN) 21(H) 9 - 16 mg/dL [facility] Creatinine, Serum 0.76 0.5 - 1.4 mg/dL [facility] Creatinine Clr Calc Pharmacy 112.0 [facility] Comment:eGFR (calculated fro m the MDRD study equation) and eCrCl(calculated from the Cockcroft-Gault equation) are based ondifferent parameters and may not yield comparable results.If eCrCl result is absurd, please check patient'sheight/weight. Estimated Glomerular Filt Rate >60 [facility] Comment:Chronic Kidney Disea se: Estimated GFR < 60 mL/min/1.81i4Fqpaxl Kidney Disease: Estimated GFR < 15 mL/min/1.73m2 Glucose 75 60 - 115 mg/dL [facility] Calcium 8.9 8.4 - 10.2 mg/dL [facility] Bilirubin, Total 1.2(H) 0.0 - 1.0 mg/dL [facility] Aspartate Amino Transferase 107(H) 5 - 37 U/L [facility] Alanine Aminotransferase 51(H) 0 - 40 U/L [facility] Total Protein 7.9 6.5 - 8.0 g/dL [facility] Albumin Level 3.6 3.5 - 5.0 g/dL [facility] Alkaline Phosphatase 247(H) 39 - 117 U/L [facility] 12/25/2024 9:41 AM EDT 12/25/2024 10:02 AM EDT us Generic External Data Provider LAB BLOOD ORDERAB LES Final Result Performing Organization Address [facility] Co de Phone Number [facility] [address] [place] [phone] * D Dimer High Sensitivity (12/25/2024 9:40 AM EDT) D Dimer High Sensitivity 413 NG/ML [facility] Comment:D-DIMER HS REFERENCE RANGENote: Our [...] ORDERAB LES Final Result Performing Organization Address [facility] de Phone Number [facility] [address] [place] [phone] * Blood Culture (First) (12/25/2024 9:40 AM EDT) Blood Venous blood specimen / Unknown 12/25/2024 9:40 AM EDT 12/25/2024 9:47 AM EDT Comment:Blood Narrative [facility] - 12/30/2024 11:47 AM EDT Blood Culture (First) No growth after 5 days. Specimen Source: Blood Generic External Data Provider LAB MICROBIOLOGY - GENERAL ORDERABLES Final Result Performing Organization Address [facility]/ZIP Co de Phone Number [facility] [address] [place] [phone] * Blood Culture (Second) (12/25/2024 9:40 AM EDT) Blood Venous blood specimen / Unknown 12/25/2024 9:40 AM EDT 12/25/2024 9:47 AM EDT Comment:Blood Narrative [facility] - 12/30/2024 11:47 AM EDT Blood Culture (Second) No growth after 5 days. Specimen Source: Blood us Generic External Data Provider LAB MICROBIOLOGY - GENERAL ORDERABLES Final Result Performing Organization Address [facility] Co de Phone Number [facility] [address] [place] [phone] * (ABNORMAL) SARS-CoV-2 RNA, Influenza A/B, and RSV RNA, Ql NAAT (12/25/2024 9:40 AM EDT) Only the most recent of2 resultswithin the time period is included. Influenza A PCR NEGATIVE Negative [facility] Influenza B PCR NEGATIVE Negative [facility] Resp Syncy Virus RNA Qual PCR POSITIVE(A) Negative [facility] SARS COV2 PCR NEGATIVE Negative [facility] Comment:All test results mus t [...] use by authorized laboratories.Testing performed on the [employer] GeneXpert utilizingreal-time RT-PCR.All SARS CoV2 and positive influenza A/B results arereported to [facility]. 12/25/2024 9:40 AM EDT 12/25/2024 9:47 AM EDT us Generic External Data Provider LAB MICROBIOLOGY - GENERAL ORDERABLES Final Result [facility] [address] [place], [place] [phone] * (ABNORMAL) CBC auto differential (12/25/2024 9:40 AM EDT) Only the most recent of2 resultswithin the time period is included. White Blood Count 10.2 4.8 - 10.8 X10*3/uL [facility] Red Blood Count 4.28(L) 4.60 - 5.80 X10*6/uL [facility] Hemoglobin 8.8(L) 14.0 - 18.0 g/dl [facility] Hematocrit 29.5(L) 42.0 - 52.0 % [facility] Mean Corpuscular Volume 68.9(L) 80.0 - 98.0 fL [facility] Mean Corpuscular Hemoglobin 20.6(L) 27.0 - 33.0 pg [facility] Mean Corpuscular HGB Conc 29.8(L) 31.0 - 36.0 g/dl [facility] Red Cell Distribution Width 22.5(H) 11.0 - 16.0 % [facility] Platelet Count 380 160 - 400 X10*3/uL [facility] Mean Platelet Volume 9.4 9.4 - 12.4 fL [facility] Neutrophils Percent Auto 77.4(H) 45 - 73 % [facility] Imm Gran Pct Auto 0.5(H) 0.0 - 0.4 % [facility] Lymphocytes Percent Auto 11.5(L) 20 - 40 % [facility] Monocytes Percent Auto 9.3 2 - 11 % [facility] Eosinophils Percent Auto 0.6 0 - 4 % [facility] Basophils Percent Auto 0.7 0 - 2 % [facility] NRBC Pct Auto 0.3(H) 0.0 - 0.2 /100WBC [facility] Neutrophils Absolute Auto 7.9 2.0 - 8.3 x10*3/uL [facility] Imm Gran Abs Auto 0.05(H) 0.00 - 0.03 X10*3/uL [facility] Lymphocytes Absolute Auto 1.2 1.2 - 4.9 X10*3/uL [facility] Monocytes Absolute Auto 0.9 0.1 - 1.2 X10*3/uL [facility] Eosinophils Absolute Auto 0.1 0.0 - 0.4 X10*3/uL [facility] Basophils Absolute Auto 0.1 0.0 - 0.2 X10*3/uL [facility] NRBC Abs Auto 0.030(H) 0.0 - 0.012 X10*3/uL [facility] 12/25/2024 9:40 AM EDT 12/25/2024 9:47 AM EDT us Generic External Data Provider LAB BLOOD ORDERAB LES Final Result Performing Organization Address City/State/[facility] Co de Phone Number [facility] [address] [place] [phone] * (ABNORMAL) Prothrombin Time-INR (12/25/2024 9:40 AM EDT) Prothrombin Time 21.7(H) 10.9 - 12.4 SEC [facility] INTERNATIONAL NORM RATIO 1.9(H) 0.9 - 1.1 [facility] Comment:INTERNATIONAL NORMAL IZED RATIO (INR) [...] Provider LAB BLOOD ORDERAB LES Final Result [facility] [address] [place] [phone] * (ABNORMAL) Drug Monitoring, Panel 1, Screen, Urine (12/25/2024 12:00 AM EST) Opiate Screen Urine Not Detected Not Detect [facility] Comment:Opiate cut-off is 30 0 ng/mL.Positive results are unconfirmed and should not be used fornon-medical purposes. Barbiturates, Urine Not Detected Not Detect [facility] Comment:Barbiturate cut-off is 200 ng/mL.Positive results are unconfirmed and should not be used fornon-medical purposes. Phencyclidine Screen Urine Not Detected Not Detect [facility] Comment:Phencyclidine cut-of f is 25 ng/mL.Positive results are unconfirmed and should not be used fornon-medical purposes. Amphetamine Screen Urine Not Detected Not Detect [facility] Comment:Amphetamine cut-off is 1000 ng/mL.Positive results are unconfirmed and should not be used fornon-medical purposes. Benzodiazepines Screen Urine Not Detected Not Detect [facility] Comment:Benzodiazepine cut-o ff is 200 ng/mL.Positive results are unconfirmed and should not be used fornon-medical purposes. Cocaine Screen Urine POSITIVE(A) Not Detect [facility] Comment:Cocaine cut-off is 3 00 ng/mL.Positive results are unconfirmed and should not be used fornon-medical purposes. Cannabinoid Screen Urine POSITIVE(A) Not Detect [facility] Comment:Cannabinoid cut-off is 50 ng/mL.Positive results are unconfirmed and should not be used fornon-medical purposes. Methadone Screen, Urine Positive(A) Not Detect ng/mL [facility] Comment:Methadone cut-off is 300 ng/mL.Positive results are unconfirmed and should not be used fornon-medical purposes. FENTANYL URINE POSITIVE(A) Not Detect [facility] Comment:Fentanyl cut-off is 1 ng/mL.Positive results are unconfirmed and should not be used fornon-medical purposes. Oxycodone Urine Screen Not Detected Not Detect ng/mL [facility] Comment:Oxycodone cut-off is 100 ng/mL.Positive results are unconfirmed and should not be used fornon-medical purposes. Buprenorphine Screen Not Detected Not Detect ng/mL [facility] Comment:Buprenorphine cut-of f is 5 ng/mL.Positive results are unconfirmed and should not be used fornon-medical purposes. 12/25/2024 12/25/2024 us Generic External Data Provider LAB URINE ORDERAB LES Final Result Performing Organization Address [facility]/ZIP Co de Phone Number [facility] [address] [place] [phone] * HIV-1/2 Antigen and Antibodies, Fourth Generation, with Reflexes (04/08/2024 11:52 AM EDT) HIV AB/AG Nonreactive Nonreactive [facility] Comment:HIV-1 p24 Ag and/or HIV-1/HIV-2 Ab not detected.A test result that is nonreactive does not exclude thepossibility of exposure to or infection with HIV-1 and/orHIV-2. Nonreactive results in this assay for individualswith prior exposure to HIV-1 and/or HIV-2 may be due toantigen and antibody levels that are below the limit ofdetection of this assay.The [employer] HIV Ag/Ab Combo assay result andsupplemental assay results should be interpreted inconjunction with the patient's clinical presentation,history and other laboratory results. If the results areinconsistent with clinical evidence, additional testing issuggested to confirm the result. Blood Venous blood specimen / Unknown 04/08/2024 11:52 AM EDT 04/08/2024 12:58 PM EDT Alba So NP LAB BLOOD ORDERABLES Final Resu lt Performing Organization Address [facility]/ZIP Co de Phone Number [facility] [address] [place] [phone] from Last 3 Months or Most Recently Relevant to Health Maintenance Insurance HSN FULL Care Teams Television Cable Installer Relationship Specialty Start Date End Date Alba So NP [address] [place] [address] PCP - General Family Medicine 04/14/24
--- OUTSIDE RECORDS SUMMARY | 2025-03-03 21:07 | XMS_ITS | Data Portability ---
Author Organization [facility] [employer] [facility], Main Office Address [address] [address] [facility] [place] [address] Care Team Providers Care Gravity Prospecting Operator Helper Name Role Phone [facility] OTHER Assessment Encounter Date Assessment Date Assessment LastModified by Organization Details LastModified Time 04/09/2023 04/09/2023 04/01/23 wbc 6.8, hgb 9.2, plt 291, na 145, k 3.5, creat 0.9 04/08/23 na 140, k 3.8, creat 0.7 t bili 1.5, alk phos 144, ast/alt 13 [email or web address] Not available 04/09/2023 08:41:20 Plan of Treatment [...] Address Organization Details Recorded Time Septic shock 49826441 Active 2022 Martinez Rendon MD [address] [facility] [facility], [address], [place], [address], [facility] 3 15:13:19 Infective endocarditis of tricuspid valve 127093249 Active 2022 Martinez Rendon MD [address] [facility], [address], [place], [address], [facility] 3 15:13:41 Pulmonary embolism 42198875 Active 2022 Martinez Rendon MD [address], [address], [place], [address], [place] [facility] 3 15:13:48 Chronic hepatitis C 839066254 Active 2022 Martinez Rendon MD [address], [address], [place], [address], [facility] [employer] [facility] 3 15:13:55 Anemia 486182201 Active 2022 Martinez Rendon MD [address], [address], [place], [address], [facility] [employer] [facility] 3 15:14:52 Cirrhosis of liver 13812631 Active 2022 Martinez Rendon MD [address], [address], [place], [address], [facility] [employer] [facility] 3 15:14:58 Congestive heart failure 59593239 Active 2022 Martinez Rendon MD [address], [place], [address], [facility] [employer] [facility] 3 15:15:02 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 654837810 Active 2022 Martinez Rendon MD [address], [address], [place], [address], [facility] [employer] [facility] 3 15:15:08 Unsheltered homelessness Active 2022 Martinez Rendon MD [address], [place], [address], [facility] [employer] [facility] 3 15:15:20 Tobacco user 349171908 Active 2022 Martinez Rendon MD [address], [place], [address], [facility] [employer] [facility] 3 15:35:03 Primary insomnia 5348061 Active 2022 Martinez Rendon MD [address], [place], [address], [facility] [employer] [facility] 3 15:34:02 Problem Notes None recorded. Medical Equipment None Reported. Allergies No known drug allergies Medications Not known to be on any medication Vitals None Recorded Social History Question Answer Notes LastModified by Organizat ion Details LastModified Time Tobacco Smoking Status Current Every Day Smoker Martinez Rendon MD [address], [address], [place], [address], [facility] 03/24/2023 15:12:49 How Much Tobacco Do You [...] SNOMED-CT Code Diagnosis ICD10 Code Diagnosis Note [id number] Martinez Rendon MD [facility] on [address] [place] [address] 03/24/2023 15:03:52 03/30/2023 15:17:15 Septic shock 18962704 R65.21 see HPInow onnafcilli n 2 gm q 4 for 26 daysadd probiotic bidmonitor cbcupdate ID with concerns 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 238030185 F19.10 maintained onmethadon e 40 mg qdwill establish with clinicSUDS counselor at facility Infective endocarditis of tricuspid valve 581820293 I33.0 see HPIhx of TV endocardit is s/p bioprosthe tic TVR complicate d by bioprosthe tic valve stenosismo nitor for sxadded to PMHpatient is followed by CT surgery and cardiology at [facility] Pulmonary embolism 79542 003 I26.99 xarelto 20 mg qdmonitor respirator y status Chronic hepatitis C 1283 42941 B18.2 untreated with resultant cirrhosis of liver with hx etohwill refer to GI Cirrhosis of liver 12696 007 K74.69 see above Anemia 207054048 D50.8 appears due to malnutriti on and iron deficiency monitor cbciron studies prndietary consult prn Congestive heart failure 63414246 I50.22 carrying dxmaintain ed on spironolac tone 25 mg qdmonitor respirator y status and need to titrate Unsheltere d homelessness [id number] 90320 Z59.02 marriage and family social worker to be involvedma y be barrier [facility] added to PMH Tobacco user 461450272 Z 72.0 currently refusing nicotine patchis smoking at facilityco nsidering quitting, encouraged may start patch tomorrow [id number] Martinez Rendon MD [facility] on [address] [place] [address] 03/25/2023 15:30:14 03/30/2023 15:28:18 Primary insomnia 7426571 F51.01 see HPIwill starttraza done 25 mg qhs prnmonitor for effect and need to titrate 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 653713027 F19.10 methadone 40 mg qdcurrentl y stable at baseline [id number] SCOTTIE Chen [facility] on [address] [place] [address] 03/30/2023 08:21:03 04/01/2023 10:41:27 Septic shock 30335131 R65.21 nafcillin 2 gm q 4 hrs til 04/19/23moni tor cbcf/u with ID s 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 240673314 F19.10 methadone 40 mg qdf/u with methadone clinicSUDs counseling at facility Infective endocarditis of tricuspid valve 099176723 I33.0 hx of TV endocardit is s/p bioprosthe tic TVR complicate d by bioprosthe tic valve stenosispt notes sob intermitte ntly since TVR a couple of years agowaiting for CXR resultsfol lowed by CT surgery and cardiology at [facility] Pulmonary embolism 92234 003 I26.99 xarelto 20 mg qdmonitor resp status, bleeding risk Chronic hepatitis C 1283 38670 B18.2 untreated with resultant cirrhosis of liver with hx etohreferr ed to GI Cirrhosis of liver 31061 007 K74.69 see above Anemia 887721975 D50.8 appears due to malnutriti on and iron deficiency monitor cbciron studies prndietary consult prn Congestive heart failure 27079674 I50.22 compensate dspironola ctone 25 mg qdmonitor respirator y status and need to titrate Unsheltere d homelessness [id number] 79070 Z59.02 social worker masters involvedba rrier [facility] Primary insomnia 8125769 F51.01 increase trazodone to 50 mg qhsmonitor for effect [id number] Martinez Rendon MD [facility] on [address] [place] [address] 03/31/2023 16:07:11 04/03/2023 16:00:10 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 867305870 F19.10 see HPImethado ne 40 mg qd currentlyp atient can f/u at methadone clinic for dose adjustment Septic shock 82031019 R6 5.21 nafcillin 2 gm q 4 to complete courserepe at cbc in am Pulmonary embolism 62315 003 I26.99 xarelto 20 mg qdmonitor respirator y statuswith atypical chest pain would consider CT imaging if symptoms changeto ED for acute decompensa tion [id number] Martinez Rendon MD [facility] on [address] [place] [address] 04/03/2023 15:42:16 04/06/2023 16:19:22 Atypical chest pain 328982099 R07.89 exam reassuring question underlying neuropathi c painwill start gabapentin 100 mg tid and followmoni tor need for chest CT depending on change in presentati on Septic shock 44924517 R6 5.21 see HPI with shock and endocardit isnafcilli n 2 gm q 4 for 26 days from admitmonit or cbcupdate ID with concernswb c count reassuring 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 853831394 F19.10 methadone 40 mg qdSUDS counselor at facility Pulmonary embolism 99026 003 I26.99 xarelto 20 mg qdmonitor respirator y statuscont inuedsee above [id number] SCOTTIE Chen [facility] on [address] [place] [address] 04/06/2023 14:52:36 04/13/2023 16:26:47 Septic shock 53286520 R65.21 nafcillin 2 gm q 4 hrs til 04/19/23moni tor cbcf/u with ID s 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 269845468 F19.10 methadone 40 mg qdf/u with methadone clinicSUDs counseling at facility Infective endocarditis of tricuspid valve 110942278 I33.0 hx of TV endocardit is s/p bioprosthe tic TVR complicate d by bioprosthe tic valve stenosispt notes sob intermitte ntly since TVR a couple of years agonow somewhat worse with abd distension discussed with Dr Rendon, will get abd UL, nurse aware and will orderfollo wed by CT surgery and cardiology at [facility] Pulmonary embolism 87768 003 I26.99 xarelto 20 mg qdmonitor resp status, bleeding risk Chronic hepatitis C 1283 83494 B18.2 untreated with resultant cirrhosis of liver with hx etohreferr ed to GI Cirrhosis of liver 007 K74.69 now with possible ascitesabd UL as aboveincre ase spironolac tone to 50 mg qd (was on 25 mg qd)monitor for worsening sxs Anemia 789791313 D50.8 appears due to malnutriti on and iron deficiency monitor cbciron studies prndietary consult prn Congestive heart failure 69367702 I50.22 increased sobspirono lactone 50 mg qd (as above)anoop tor respirator y status and need to titrate [id number] Martinez Rendon MD [facility] on [address] [place] [address] 04/07/2023 13:38:54 04/14/2023 09:58:52 Abdominal pain 68540544 R10.31 abd discomfort with distention ultrasound pendingCMP in ammonitor LFTs and need for GI referral Atypical chest pain 1025 08028 R07.89 see abovewill increase gabapentin to 200 mg tid and followmoni tor need for chest CT depending on change in presentati on Septic shock 76113749 R6 5.21 see HPI with shock and endocardit isnafcilli n 2 gm q 4 through 7/1monitor cbcupdate ID with concernswb c count reassuring [id number] SCOTTIE Chen [facility] on [address] [place] [address] 04/09/2023 08:34:52 04/22/2023 08:32:51 Infective endocarditis of tricuspid valve 192155826 I33.0 hx of TV endocardit is s/p bioprosthe tic TVR complicate d by bioprosthe tic valve stenosispt notes sob intermitte ntly since TVR a couple of years agowaiting for abd UL to be donefollow ed by CT surgery and cardiology at [facility] Cirrhosis of liver 30190 007 K74.69 now with possible ascitesabd UL as abovespiro nolactone 50 mg qdmonitor for worsening sxs 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 902619269 F19.10 methadone 40 mg qddiscusse d with MD and will not add narcotic in pt with hx of polysubsta nce abuse - pain appears to be chronic in naturef/u with methadone clinicSUDs counseling at facility Septic shock 16478790 R6 5.21 nafcillin 2 gm q 4 hrs til 04/19/23moni tor cbcf/u with ID s Pulmonary embolism 06526 003 I26.99 xarelto 20 mg qdmonitor resp status, bleeding risk Chronic hepatitis C 1283 09933 B18.2 untreated with resultant cirrhosis of liver with hx etohreferr ed to GI Anemia 932883915 D50.8 appears due to malnutriti on and iron deficiency monitor cbciron studies prndietary consult prn Congestive heart failure 11949827 I50.22 stable todayspiro nolactone 50 mg qd (as above)anoop tor respirator y status and need to titrate Abdominal pain 16439686 R10.31 abd discomfort with distention ultrasound pendingCMP in ammonitor LFTs again on 04/13/23 and need for GI referral Atypical chest pain 1025 17654 R07.89 see abovegabap entin 200 mg tid and followmoni tor need for chest CT depending on change in presentati on Martinez Rendon MD [facility] on [address] [place] [address] 04/13/2023 15:29:49 04/22/2023 08:58:15 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 965536904 F19.10 maintained onmethadon e 40 mg qdwill write for oxycodone 5 mg q 8 prn breakthrou gh painthis will be discontinu ed at time of dischargep atient not to leave facility with oxycodone Infective endocarditis of tricuspid valve 984880725 I33.0 see HPIhx of TV endocardit is s/p bioprosthe tic TVR complicate d by bioprosthe tic valve stenosisco mplete Ab on 04/15 with ID signing off at this time Pulmonary embolism 71644 003 I26.99 xarelto 20 mg qdmonitor respirator y statushold day prior to paracentes is and day of procedure Chronic hepatitis C 1283 43330 B18.2 untreated with resultant cirrhosis of liver with hx etoh and now significan t asciteswil l refer to GI for further workup and evalwill refer to interventi onal radiology for paracentes iss Cirrhosis of liver 007 K74.69 see above [id number] Martinez Rendon MD [facility] on [address] [place] [address] 04/15/2023 13:43:11 04/22/2023 10:39:02 Infective endocarditis of tricuspid valve 380206594 I33.0 see HPIhx of TV endocardit is s/p bioprosthe tic TVR complicate d by bioprosthe tic valve stenosisan tibiotic completeID to set time to remove picc line Pulmonary embolism 93304 003 I26.99 xarelto 20 mg qdmonitor respirator y statushold day prior to paracentes is and day of procedure 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 873891444 F19.10 maintained onmethadon e 40 mg qdoxycodon [...] for paracentes is Restlessne ss and agitation 645647874 R45.1 Patient verbally abusive and patronizin g [...] request psych eval if patient will accept [id number] SCOTTIE Chen [facility] on [address] [place] [address] 04/23/2023 12:25:55 04/29/2023 07:46:12 Infective endocarditis of tricuspid valve 299670014 I33.0 pt ok to discharge today to homeless shelterhx of TV endocardit is s/p bioprosthe tic TVR complicate d by bioprosthe tic valve stenosisco mpleted Ab on 04/15/23 with ID signing off at this timef/u with cards, pcp Pulmonary embolism 31366 003 I26.99 xarelto 20 mg qd - rx written for #30f/u with pcp Chronic hepatitis C 1283 06770 B18.2 untreated with resultant cirrhosis of liver with hx etoh and now significan t ascitesref erred to GI for further workup and evalpt refused paracentes is when he was sent out to [facility] ED 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 441978151 F19.10 pt received his last dose methadone [...] Name 04/07/2023 1 [place] Norberto Corjazmin [id number] Norberto Corjazmin 04/09/2023 1 [place] Norberto Coriano [id number] Norberto Corjazmin 04/13/2023 1 [place] Norberto Coriano [id number] Norberto Corjazmin 04/15/2023 1 [place] Norberto Coriano [id number] Norberto Corjazmin 04/23/2023 1 [facility] [facility] Norberto Corjazmin [id number] Norberto Marquez Notes Date Note Type Note [...] increase in gabapentin Martinez Rendon MD [address], [address], [place], [address], [facility] 04/07/2023 13:48:54 04/09/2023 text/html pt seen today [...] rib and back pain. SCOTTIE Chen [address], [address], [place], [address], [facility] 04/09/2023 14:32:40 04/13/2023 text/html Patient is a [...] with c/o pain Martinez Rendon MD [address], [address], [place], [address], [facility] 04/13/2023 15:45:02 04/15/2023 text/html Patient is a [...] for theraputic paracentesis. Martinez Rendon MD [address], [address], [place], [address], [employer] 04/15/2023 14:38:05 04/23/2023 text/html pt seen today fo r discharge summary. pt is discharging [facility] a [facility] [place] [facility]. he has completed his antibiotics on 04/15/23 [...] nafcillin to complete course. SCOTTIE Chen [address], [address], [place], [address], [facility] 04/23/2023 13:14:23
--- OUTSIDE RECORDS SUMMARY | 2025-03-03 21:07 | XMS_ITS | Encounter Summary ---
Author Organization [employer] Address [address] [facility] [address] [place] [address] Care Team Providers Care Glass Blowing Lathe Operator Name Role Phone Alba So NP Primary Care Provider [phone] Encounter Details Date Type Department Care Team (Late st Contact Info) Description 12/21/2024 Orders Only [facility] MEDICINE [address] [place] [address] Alba So NP [address] [place] [address] Social History Tobacco Use Types Packs/Day Years [...] with others, in a hotel, in a half-way, living outside on the street, on a [...] as of this encounter Care Teams Glass Blowing Lathe Operator Relationship Specialty Start Date End Date Alba So NP [address] [place] [address] PCP - General Family Medicine 04/14/24 documented as of this encounter
--- OUTSIDE RECORDS SUMMARY | 2025-03-03 21:07 | XMS_ITS | Encounter Summary ---
Author Organization [employer] Address [address] [facility] [address] [place] [address] Care Team Providers Care Bicycle Repairer Name Role Phone Nirali Lott Primary Care Provider [phone] Alba So NP Primary Care Provider [phone] Reason for Visit * Reason Onset Date Comments PT1 08/05/2023 Encounter Details Date Type Department Care Team ([facility] st Contact Info) Description 08/05/2023 Telephone [facility] MEDICINE [address] [place] [address] Nirali Lott FNP [address] [place] [address] PT1 Social History Tobacco Use Types Packs/Day [...] 08/05/2023 1:12 PM EDT PT-1 Request Number [id number] is Pending * Telephone Encounter - Sage Telles - 08/05/2023 12:36 PM EDT Tc from Sindhu with [facility] Partner requesting a PT1: Name of facility: [facility] Specialty: Consult possible liver transplant Location: [address] [place] [address] Date: 08/12/2023 Time: 11:00 am fax: n/a wheelchair: no Principal Account Clerk: no All future appt's documented in this encounter Plan of Treatment Not on file documented as of this encounter Visit Diagnoses Not on filedocumented in this encounter Additional Health Concerns Assessment Noted Time PHQ-9 Depression Total Score: 0 06/03/20 23 10:05 AM EDT documented as of this encounter Care Teams Bicycle Repairer Relationship Specialty Start Date End Date Nirali Lott FNP [address] [place] [address] PCP - General Family Medicine 07/09/23 04/13/24 Alba So NP [address] [place] [address] PCP - General Family Medicine 04/14/24 documented as of this encounter
--- OUTSIDE RECORDS SUMMARY | 2025-03-03 21:07 | XMS_ITS | Encounter Summary ---
Author Organization [employer] Address [address] [facility] [address] [place] [address] Care Team Providers Care Hot Roller Name Role Phone Jin Mack Primary Care Provider Unavail able Nirali Lott Primary Care Provider [phone] Alba So NP Primary Care Provider [phone] Encounter Details Date Type Department Care Team (Late st Contact Info) Description 06/08/2023 Orders Only [facility]S [address] [place] [address] Nirali Lott FNP [address] [place] [address] Chronic hepatitis C without hepatic coma (CMS/HCC) [...] documented as of this encounter Care Teams Hot Roller Relationship Specialty Start Date End Date Jin Mack AGNP PCP - General Family Medicine 04/24/23 07/08/23 Nirali Lott FNP [address] [place] [address] PCP - General Family Medicine 07/09/23 04/13/24 Alba So NP [address] [place] [address] PCP - General Family Medicine 04/14/24 documented as of this encounter
--- OUTSIDE RECORDS SUMMARY | 2025-03-03 21:07 | XMS_ITS | Encounter Summary ---
Author Organization [employer] Address [address] [facility] [address] [place] [address] Care Team Providers Care Planned Giving Officer Name Role Phone Nirali Lott Primary Care Provider [phone] Alba So NP Primary Care Provider [phone] Reason for Referral * Consultation (Routine) - Closed Specialty Diagnoses / Procedures Referred By Merle calvillo Referred To Contact Hand Surgery Diagnoses Pain in finger of left hand Nirali Lott FNP [address] [place] [address] Phone: tel: fax: [facility] [address] [place] [address] Phone: tel: Referral ID Status Reason Start Date Expiration Date V isits Requested Visits Authorized [id number] Closed Specialty Services Required 12/23/2023 12/22/2024 6 6 Encounter Details Date Type Department Care Team (Late st Contact Info) Description 12/23/2023 Orders Only [facility] PEDS [address] [place] [address] Nirali Lott FNP [address] [place] [address] Pain in finger of left hand (Primary [...] documented as of this encounter Care Teams Planned Giving Officer Relationship Specialty Start Date End Date Nirali Lott FNP [address] [place] [address] PCP - General Family Medicine 07/09/23 04/13/24 Alba So NP [address] [place], [place] [phone] PCP - General Family Medicine 04/14/24 documented as of this encounter
[2025-03-03 21:20] LABS: MANUAL DIFF FLAG NO
[2025-03-03 21:21] LABS: Basophils Percent Auto 0.4 % (0-2); Eosinophils Absolute Auto 0.1 X10*3/uL (0.0-0.4); Eosinophils Percent Auto 1.6 % (0-4); Imm Gran Abs Auto 0.08 X10*3/uL (0.00-0.03); Lymphocytes Absolute Auto 1.1 X10*3/uL (1.2-4.9); Lymphocytes Percent Auto 13.9 % (20-40); Mean Corpuscular HGB Conc 29.6 g/dl (31.0-36.0); Mean Corpuscular Hemoglobin 19.7 pg (27.0-33.0); Mean Corpuscular Volume 66.5 fL (80.0-98.0); Mean Platelet Volume 9.4 fL (9.4-12.4); Monocytes Percent Auto 12.6 % (2-11); NRBC Pct Auto 0.9 /100WBC (0.0-0.2); Neutrophils Absolute Auto 5.4 x10*3/uL (2.0-8.3); Neutrophils Percent Auto 70.5 % (45-73); Platelet Count 230 X10*3/uL (160-400); Red Cell Distribution Width 21.9 % (11.0-16.0); White Blood Count 7.6 X10*3/uL (4.8-10.8)
[2025-03-03 21:27] LABS: Hematocrit 20.6 % (42.0-52.0); Hemoglobin 6.1 g/dl (14.0-18.0)
[2025-03-03 21:33] LABS: Ethanol < 10 mg/dL
[2025-03-03 21:35] LABS: Alanine Aminotransferase 103 U/L (0-40); Albumin Level 3.3 g/dL (3.5-5.0); Alkaline Phosphatase 181 U/L (39-117); Anion Gap 16 (12-20); Aspartate Amino Transferase 70 U/L (5-37); Bilirubin Total 1.4 mg/dL (0.0-1.0); Blood Urea Nitrogen 19 mg/dL (9-16); Carbon Dioxide 17 mmol/L (22-29); Chloride 109 mmol/L (96-108); Creatinine Clr Calc Pharmacy 100.4; Estimated Glomerular Filt Rate > 60; Glucose Random 74 mg/dL (60-115); Sodium 138 mmol/L (135-145); Total Protein 6.4 g/dL (6.5-8.0)
[2025-03-03 21:42] LABS: Troponin-I High Sensitivity < 2.7 ng/L (<3.5-35.0)
--- NOTE | 2025-03-03 21:45 | ED_ITS ---
HPI - General Adult General Chief complaint: General Medical Stated complaint: Feels sick/cold, smoked crack 1 hour ago Time Seen by Provider: 03/03/25 21:42 Source: patient and family Mode of arrival: EMS Limitations: no limitations History of Present Illness ED Provider: HPI narrative: 34-year-old male with a PMH significant for?continuing polysubstance use disorder with IVDU, endocarditis s/p bioprosthetic tricuspid valve replacement 2019 complicated by valve stenosis, septic pulmonary emboli and empyema, hx of DVT and PE noncompliant with apixaban, cardiomyopathy, recurrent MSSA bacteremia and endocarditis, untreated chronic hepatitis-C, anemia, and hepatic cirrhosis with still using IV heroin comes here for chest pain and not feeling well per mother patient was febrile patient has just used ivheroin hour prior to arrival patient has had labs workup done prior to my evaluation showed hemoglobin of 6.1 hematocrit 20.6 patient was seen earlier today for left lower extremity varicose vein bleed Related Data Home Medications ?Medication ?Instructions ?Recorded ?Confirmed methadone 10 mg/mL oral 115 mg PO DAILY 09/13/24 02/08/25 concentrate (Methadone Intensol) magnesium oxide 400 mg PO DAILY 10/10/24 02/07/25 albuterol sulfate 90 mcg/actuation 2 inh inhalation Q4-6H PRN wheezing 02/07/25 02/07/25 breath activated powder inhaler (ProAir RespiClick) Previous Rx's ?Medication ?Instructions ?Recorded apixaban 5 mg tablet (Eliquis) 5 mg PO BID 30 days #60 tabs 02/09/25 sulfamethoxazole 800 1 tab PO DAILY 2 days #2 tabs 02/09/25 mg-trimethoprim 160 mg tablet (Bactrim DS) Allergies Allergy/AdvReac Type Severity Reaction Status Date / Time No Known Allergies Allergy Verified 03/03/25 20:55 [No Known Allergies*] Review of Systems 2 Review of Systems: Yes all other systems are reviewed and are negative PMFSH Past Medical History Medical History Rhabdomyolysis Anemia LUCERO (acute kidney injury) Polysubstance abuse Opioid use disorder Opioid use disorder, severe, dependence Substance abuse MSSA bacteremia Bacteremia Bacteremia Right heart failure Steatosis, liver Tricuspid valve stenosis Anasarca HCV (hepatitis C virus) Endocarditis Pulmonary embolism Surgical History History of tricuspid valve replacement with bioprosthetic valve Social History Social History Household Members: Other Household Members Other:: [facility] Housing: Homeless Do you presently have visiting nurse or other home services: No Unable to assess alcohol history related to: Unknown Alcohol intake: never Patient Tobacco Use Status: Current everyday Tobacco user Tobacco use type: Cigarette Cigarette Packs Per Day: 0.5 Cigarettes Per Day: 10.0 Years Smoked: 10 Second Hand Smoke Exposure: No Substance Use Type: Crack/Cocaine, Heroin and IV Drugs Advance Directives: Yes Advance Directives on File: Yes Advance Directives Date on File: 04/16/21 Do you have a plan to hurt others: No Plan service: No Current occupational status: unemployed Physical Exam ED Vital Signs: Vital Signs - 24 hr 03/03/25 22:08 Temperature 103.4 F H Pulse Rate 108 H Respiratory Rate 18 Blood Pressure 112/60 Pulse Oximetry 94 Oxygen Delivery Method Room Air BMI result Body Mass Index 24.4 Appearance: Alert. Oriented X3. No acute distress. Under influence of opiate febrile to touch Eyes: PERRLA, No Nystagmus pallor++ ENT: Pharynx normal. Oral Mucosa moist Neck: Normal inspection. Neck supple. CVS: Tachycardia regular rhythm. Pulses normal. Systolic ejection murmur at base Respiratory: No respiratory distress. Equal air entry bilateral, no wheezing/rales/rhonchi bilateral conducted sounds Abdomen: Soft and nontender. Bowel sounds are present, no mass palpable, no CVA tenderness Skin: Skin warm and dry. Normal skin color. Normal skin turgor. Extremities: No lower extremity edema. No calf tenderness IVDA tan Neuro: Oriented X 3. No motor deficit. No sensory deficit.No cerebellar signs , cranial nerves II-XII intact Medications Administered Generic Name Dose Route Start Last Admin Trade Name Freq PRN Reason Stop Dose Admin Octreotide Acetate 500 mcg/ 501 mls @ 50.1 mls/hr 03/03/25 23:45 03/04/25 00:58 Sodium Chloride IVCONT 50 mcg/hr .Q10H CRISTINA 50.1 mls/hr Administration 50 MCG/HR Pantoprazole Sodium 40 mg 03/04/25 00:15 03/04/25 00:50 Pantoprazole Sodium 40 Mg/10 Ml Vial IVPUSH 40 mg BID@0630,1630 CRISTINA Administration Sodium Chloride 3 ml 03/04/25 00:00 03/04/25 00:50 0.9 % Sodium Chloride Flush 3 Ml Syringe IVFLUSH Not Given QSHIFT CRISTINA Discontinued Medications Generic Name Dose Route Start Last Admin Trade Name Tavia PRN Reason Stop Dose Admin Ceftriaxone Sodium 2 gm 03/03/25 22:06 03/03/25 22:26 Ceftriaxone Sodium 2 Gm Vial IVPUSH 03/03/25 22:07 2 gm ONCE ONE Administration Diphenhydramine HCl 50 mg 03/03/25 22:50 03/03/25 22:51 Diphenhydramine Hcl 50 Mg/Ml Vial IVPUSH 03/03/25 22:51 50 mg ONCE ONE Administration Sodium Chloride 2,500 mls @ 2,500 mls/hr 03/03/25 22:01 03/04/25 01:04 Ns IV 03/03/25 23:00 Infused .Q1H STA Infusion Vancomycin HCl 1,500 mg/ 500 mls @ 333.333 mls/hr 03/03/25 22:03 03/04/25 00:50 Sodium Chloride IV 03/03/25 23:32 Infused ONCE ONE Infusion Acetaminophen 1,000 mg in 100 mls @ 400 mls/hr 03/03/25 22:18 03/03/25 23:03 Ofirmev IV 03/03/25 22:32 Infused ONCE ONE Infusion Magnesium Sulfate 2 gm in 50 mls @ 25 mls/hr 03/04/25 00:27 03/04/25 03:06 Magnesium Sulfate/H2o IV 03/04/25 02:26 Infused ONCE ONE Infusion Octreotide Acetate 50 mcg 03/03/25 23:55 03/04/25 00:50 Octreotide Acetate 100 Mcg/Ml Ampul IVPUSH 03/03/25 23:56 50 mcg ONCE ONE Administration Ondansetron HCl 4 mg 03/03/25 22:35 03/03/25 22:50 Ondansetron Hcl 4 Mg/2 Ml Vial IVPUSH 03/03/25 22:36 4 mg ONCE ONE Administration Medical Decision Making Medical Decision Making MDM Narrative: 34-year-old male with a PMH significant for?continuing polysubstance use disorder with IVDU, endocarditis s/p bioprosthetic tricuspid valve replacement 2019 complicated by valve stenosis, septic pulmonary emboli and empyema, hx of DVT and PE noncompliant with apixaban, cardiomyopathy, recurrent MSSA bacteremia and endocarditis, untreated chronic hepatitis-C, anemia, and hepatic cirrhosis with still using IV heroin comes here for chest pain noticed to be febrile with elevated lactic acid level likely bacteremia from IVDA user admit patient for rule out bacteremia meeting criteria for sepsis received IV fluids and IV antibiotics vancomycin Rocephin Differential Diagnosis Differential Diagnoses: The differential diagnosis associated with the presentation includes Admission/Observation Consideration of admission/observation: Escalation of care including admission/observation considered Consult Healthcare Provider Management of the patient was discussed with: Hospitalist Lab Data MDM Lab Attestation statement: I reviewed the patient's lab results. 03/03/25 21:16 03/03/25 21:16 Labs: Lab Results 03/03/25 03/03/25 03/03/25 Range/Units 21:16 22:15 22:26 WBC 7.6 (4.8-10.8) X10*3/uL RBC 3.10 L (4.60-5.80) X10*6/uL Hgb 6.1 L* (14.0-18.0) g/dl Hct 20.6 L* D (42.0-52.0) % MCV 66.5 L (80.0-98.0) fL MCH 19.7 L (27.0-33.0) pg MCHC 29.6 L (31.0-36.0) g/dl RDW 21.9 H (11.0-16.0) % Plt Count 230 (160-400) X10*3/uL MPV 9.4 (9.4-12.4) fL Immature Gran % (Auto) 1.0 H (0.0-0.4) % Neut % (Auto) 70.5 (45-73) % Lymph % (Auto) 13.9 L (20-40) % Anderson % (Auto) 12.6 H (2-11) % Eos % (Auto) 1.6 (0-4) % Baso % (Auto) 0.4 (0-2) % Lymph # (Auto) 1.1 L (1.2-4.9) X10*3/uL Anderson # (Auto) 1.0 (0.1-1.2) X10*3/uL Eos # (Auto) 0.1 (0.0-0.4) X10*3/uL Baso # (Auto) 0.0 (0.0-0.2) X10*3/uL Abs Immat Gran (auto) 0.08 H (0.00-0.03) X10*3/uL Absolute Neuts (auto) 5.4 (2.0-8.3) x10*3/uL Absolute Nucleated RBC 0.070 H (0.0-0.012) X10*3/uL Nucleated RBC % (auto) 0.9 H (0.0-0.2) /100WBC PT 27.7 H D (10.9-12.4) SEC INR 2.4 H (0.9-1.1) APTT 36.6 (26.0-36.8) SEC Sodium 138 (135-145) mmol/L Potassium 4.0 (3.3-5.1) mmol/L Chloride 109 H (96-108) mmol/L Carbon Dioxide 17 L (22-29) mmol/L Anion Gap 16 (12-20) BUN 19 H (9-16) mg/dL Creatinine 1.05 (0.5-1.4) mg/dL Estim Creat Clear Calc 100.4 Estimated GFR > 60 Random Glucose 74 (60-115) mg/dL Lactic Acid 2.6 H* (0.5-2.0) mmol/L Calcium 8.0 L D (8.4-10.2) mg/dL Total Bilirubin 1.4 H (0.0-1.0) mg/dL AST 70 H (5-37) U/L ALT 103 H (0-40) U/L Alkaline Phosphatase 181 H (39-117) U/L Troponin I High Sens < 2.7 (<3.5-35.0) ng/L Total Protein 6.4 L (6.5-8.0) g/dL Albumin 3.3 L (3.5-5.0) g/dL Ethyl Alcohol < 10 mg/dL Blood Type O Positive Antibody Screen NEGATIVE Crossmatch See Detail Independent Interpretation I performed an independent interpretation of an: EKG Interpretation: Sinus tachycardia heart rate 113 beats per minute nonspecific STT wave changes no acute ST-elevation Discharge Plan Discharge Clinical Impression: Bacteremia Patient Disposition: Admitted As Inpatient
[2025-03-03 22:08] VITALS: BP 112/60; PULSE 108; RESP 18; TEMP 39.7; O2SAT 94
[2025-03-03] MEDS: Acetaminophen 1,000 MG/100 ML PIGGYBACK 400 MG IV (22:26)
[2025-03-03] MEDS: cefTRIAXone sodium 2 GM VIAL IVPUSH (22:26)
[2025-03-03 22:28] LABS: INTERNATIONAL NORM RATIO 2.4 (0.9-1.1); Prothrombin Time 27.7 SEC (10.9-12.4)
[2025-03-03] MEDS: 0.9 % Sodium Chloride 2,500 ML 2500 ML IV (22:28)
[2025-03-03 22:30] LABS: Partial Thromboplastin Time 36.6 SEC (26.0-36.8)
[2025-03-03 22:38] LABS: Lactic Acid 2.6 mmol/L (0.5-2.0)
[2025-03-03] MEDS: ondansetron HCL 4 MG/2 ML VIAL IVPUSH (22:50)
[2025-03-03] MEDS: diphenhydrAMINE HCL 50 MG/ML VIAL IVPUSH (22:51)
--- NOTE | 2025-03-03 22:51 | PC.NURSE ---
after admin of ceftriaxone, pt felt, hot, itchy, diff breathing, restless. pt medicated per DEC. O2 at 94%
--- NOTE | 2025-03-03 22:59 | P.HPHOSP_ITS ---
History of Present Illness Date of Service: 03/03/25 Attending physician on admission: Evrin Lang Chief Complaint: possible withdrawal Patient is a 34-year-old male with past medical history endocarditis with tricuspid valve repair 2020 [facility] secondary to IV drug abuse, current IV drug abuse with heroin/cocaine and possible fentanyl, bacteremia, DVT/PE, untreated hepatitis-C, polysubstance abuse disorder on methadone, cirrhosis of the liver was brought in by ambulance when found in in a car feeling tremendous weakness, stiffness and patient expressed that he may be going through withdrawal after using IV heroin intravenously. Patient was previously in the emergency department and was discharged the morning of 03/03/2025. Patient had received his methadone dose which was confirmed through pharmacy and mass pat of 115 mg. Per patient's mother who was at patient's bedside, stated that patient has not been able to stop using IV drugs and when using after being discharged from the emergency department. Patient presents with evidence of bacteremia noting fever of 103.4, lactic acid 2.5. No obvious leukocytosis or bandemia noted on differential. Patient received IV fluid in the emergency department and vital signs are currently stable, blood pressure 101/65 heart rate 95 and temp now down to 99 after Tylenol. Blood cultures were drawn and patient was started on vancomycin and ceftriaxone for possible endocarditis as a source with noted left border wooshing murmur heard on examination. Patient also has an open wound on the left anthony which he was seen for in the emergency department. Right lower extremity is quite swollen and warm to the touch. DVT suspected. Patient has not been compliant with his Eliquis. Dopplers have been ordered. Unable to continue anticoagulation due to noted hemoglobin of 6.1 and hematocrit of 20.6. No obvious report of blood in the stool. Stool for occult pending patient is receiving 2 units of PRBCs. Abdomen is distended, tender with hepatomegaly noted. GI will be consulted. No CT of the abdomen at this time upon review with attending Dr. Lang. Patient has been started on Protonix 40 IV b.i.d. and octreotide. For emergency department, patient experienced some itching after ceftriaxone dose. Patient has had ceftriaxone in the past. There were no hives or obvious rash per emergency room provider. After review with the attending Dr. Douglas we will continue ceftriaxone as ordered. It does not believe the vancomycin caused the itching. Review of Systems 2 Review of Systems: Patient does open eyes to verbal stimulation. Rapid side was answering most of questions regarding HPI. Yes Unobtainable due to mental condition (pt groggy, was able to confirm that he has not been taking his usual medica) [facility] Medical History Rhabdomyolysis Anemia LUCERO (acute kidney injury) Polysubstance abuse Opioid use disorder Opioid use disorder, severe, dependence Substance abuse MSSA bacteremia Bacteremia Bacteremia Right heart failure Steatosis, liver Tricuspid valve stenosis Anasarca HCV (hepatitis C virus) Endocarditis Pulmonary embolism Cognitive capacity: Sleepy Functional capacity: independent ambulation Surgical History History of tricuspid valve replacement with bioprosthetic valve Social History Household Members: Other Household Members Other:: care home Housing: Homeless Do you presently have visiting nurse or other home services: No Unable to assess alcohol history related to: Unknown Alcohol intake: never Patient Tobacco Use Status: Current everyday Tobacco user Tobacco use type: Cigarette Cigarette Packs Per Day: 0.5 Cigarettes Per Day: 10.0 Years Smoked: 10 Second Hand Smoke Exposure: No Substance Use Type: Crack/Cocaine, Heroin and IV Drugs Advance Directives: Yes Advance Directives on File: Yes Advance Directives Date on File: 04/16/21 Do you have a plan to hurt others: No Plan service: No Current occupational status: unemployed Ebola Risk: Travel/Contact With Anyone From Affected Area/s: No Has Patient Experienced Ebola Symptoms: No Meds Allergies Allergy/AdvReac Type Severity Reaction Status Date / Time No Known Allergies Allergy Verified 03/03/25 20:55 [No Known Allergies*] Active Medications: Current Medications Sodium Chloride (Ns) 2,500 mls @ 2,500 mls/hr IV .Q1H STA Stop: 03/03/25 23:00 Last Admin: 03/03/25 22:28 Dose: 2,500 mls/hr Vancomycin HCl 1,500 mg/ (Sodium Chloride) 500 mls @ 333.333 mls/hr IV ONCE ONE Stop: 03/03/25 23:32 Pharmacy Consult (Consult Rx Vancomycin Dosing) 1 each MISCELLANE DAILY PRN PRN Reason: Consult order Sodium Chloride (0.9 % Sodium Chloride Flush 3 Ml Syringe) 3 ml IVFLUSH QSHIFT [facility] Home Medications ?Medication ?Instructions ?Recorded ?Confirmed ?Last Taken ?Type methadone 10 mg/mL oral 115 mg PO DAILY 09/13/24 02/08/25 12/23/24 10:26 History concentrate (Methadone Intensol) magnesium oxide 400 mg PO DAILY 10/10/24 02/07/25 10/11/24 History albuterol sulfate 90 mcg/actuation 2 inh inhalation Q4-6H PRN wheezing 02/07/25 02/07/25 Unknown History breath activated powder inhaler (ProAir RespiClick) Physical Exam 2 Vital Signs and Narrative: Vital Signs: Last Vital Signs Temp 103.4 F H 03/03/25 22:08 Pulse 108 H 03/03/25 22:08 Resp 18 03/03/25 22:08 BP 112/60 03/03/25 22:08 Pulse Ox 94 03/03/25 22:08 O2 Del Method Room Air 03/03/25 22:08 BMI result Body Mass Index 24.4 opens eyes to verbal stimulation, groggy, not able to answer most questions asked Neuro: Pupils pinpoint, patient can protect his airway, patient is moving all extremities EYES: Pupils pinpoint ENT: No epistaxis, no oral bleeding Cardiac: S1 S2 RRR, III/ left sternal border whooshing murmur, no JVD, edema noted in right lower extremity greater than left Pulmonary: lungs diminished bilaterally Abdominal: BS hypoactive, abdomen distended and firm in the mid epigastric area. Hepatomegaly noted MSK: Unable to assess, patient is moving all limbs : no bladder distension Extremities: Right lower extremity edema, warm to the touch greater than left lower extremity, PT and DP pulses palpable +2 Psych: mood labile, judgement and insight poor Skin: Sternotomy incision fully healed, left anthony skin abrasion opened draining slightly, track tan noted on both arms. Patient does not inject IV drugs into the legs or feet. Results Labs 03/03/25 21:16 03/03/25 21:16 Labs: Laboratory Results - last 24 hr 03/03/25 03/03/25 03/03/25 21:16 22:15 22:26 MCV 66.5 L MCH 19.7 L MCHC 29.6 L RDW 21.9 H Plt Count 230 MPV 9.4 Immature Gran % (Auto) 1.0 H Neut % (Auto) 70.5 Lymph % (Auto) 13.9 L Wirt % (Auto) 12.6 H Eos % (Auto) 1.6 Baso % (Auto) 0.4 Lymph # (Auto) 1.1 L Wirt # (Auto) 1.0 Eos # (Auto) 0.1 Baso # (Auto) 0.0 Abs Immat Gran (auto) 0.08 H Absolute Neuts (auto) 5.4 Absolute Nucleated RBC 0.070 H Nucleated RBC % (auto) 0.9 H PT 27.7 H D INR 2.4 H APTT 36.6 Anion Gap 16 Estim Creat Clear Calc 100.4 Estimated GFR > 60 Random Glucose 74 Lactic Acid 2.6 H* Calcium 8.0 L D Total Bilirubin 1.4 H AST 70 H ALT 103 H Alkaline Phosphatase 181 H Total Protein 6.4 L Albumin 3.3 L Ethyl Alcohol < 10 Crossmatch See Detail ECG Attestation: I personally reviewed and interpreted this ECG as follows: (Sinus tachycardia incomplete right bundle branch block possible anterior lateral ischemia troponin negative QTC 526) Imaging Radiologist's Impressions: CXR Findings: Left-sided metallic leads appear banded. These are considered not safe for MRI. No significant change in imaged mediastinum with post sternotomy changes again noted. Pulmonary opacities are new/worsening and nonspecific with a right hilar predominance concerning for pneumonitis. Atypical edema also considered. No pneumothorax or pleural effusion in this one view study. No definite osseous change in the [id number]. IMPRESSION: Pulmonary opacities, including right hilar region, concerning for pneumonitis. Assessment and Plan (1) Bacteremia: Status: Acute Plan Patient is a 34-year-old male with past medical history endocarditis with tricuspid valve repair 2020 [facility] secondary to IV drug abuse, current IV drug abuse with heroin/cocaine and possible fentanyl, bacteremia, DVT/PE, untreated hepatitis-C, polysubstance abuse disorder on methadone, cirrhosis of the liver is being admitted for bacteremia with a fever of 103.4, lactic acid 2.5 status post continued IV drug abuse with possible endocarditis as the source. Bacteremia/ history of MSSA bacteremia and endocarditis from IV drug use -continuing vancomycin and ceftriaxone. Patient did have some itching after his 1st dose of ceftriaxone but has had this medication in the past. Patient received 1 dose of Benadryl with good effect. After review with the attending Dr. Lang, can continue ceftriaxone at this time. Pharmacy called consulted for vancomycin management -echo pending -blood cultures pendingID consult if ECHO or testing is positive -UA pending -L anthony opened wound, treatmernt started, nothing to culture -IVF initiated -Tylenbol for fever -No nsaids due to suspected GIB Pneumonitis -Noted on CXR -Duo nebs ordered/ budesonide added -Oxygen on board GI bleed/anemia -H/H 6.1/20.6 -patient is receiving 2 units of PRBCs in the emergency department, follow H&H -stool for occult pending -patient has not been compliant with his Eliquis, no issues with spontaneous bleeding from the nose mouth urethra rectum or skin. No obvious hematomas. -GI consulted -patient is started on Protonix 40 IV b.i.d. -patient is started on octreotide -patient is NPO History of PE, DVT -noncompliant with Eliquis 5 mg p.o. b.i.d. -possible DVT right lower extremity suspected, Dopplers pending -due to possible GI bleed unable to initiate anticoagulation at this time -based on patient's history of noncompliance may need to consider IVC filter, no evidence of stroke at this time Prolonged QTC -QTC 526, magnesium 2 g provided -monitor EKG Open wound left anthony -wound care consult ordered -wound care instructions provided History of tricuspid valve replacement with bioprosthetic valve 2019 -noted 3/ whooshing left sternal border murmur noted on exam -echo pending -patient is on vancomycin, history of MSSA infection -ID consult if indicated -may need to consider CT of the head, patient at risk for watershed stroke as patient has been noncompliant with his anticoagulation Polysubstance abuse/ IV drug abuse -on methadone 115 mg p.o. daily -patient's mother at bedside states patient has had issues for the last 7 years and had only 1 year where patient was clean -patient was in detox recently but went back to using IV drugs -as above patient has already had a tricuspid valve replacement due to endocarditis from IV drug use. Workup continues noting bacteremia and possible endocarditis -addictions consulted Untreated hepatitis-C -patient will need to follow as an outpatient for treatment which at this point has not been started due to noncompliance -checking RNA load Hepatic cirrhosis -chronic with noted mildly elevated LFTs -platelets are 230 Tobacco dependence -unable to dormitory counselor patient at this time due to level of his illness -consider nicotine patch if needed DVT prophylaxis: On hold due to suspected GI bleed and need for transfusion PPI prophylaxis: Protonix IV and octreotide Med rec pending Full Code status Quality Stroke Does the patient have a stroke diagnosis?: No Reason for No Anti-thrombotic by Day Two: Contraindicated VTE Prior VTE?: No VTE Risk Level:: Medical - moderate - high VTE Device Contraindication: N/A - Device Ordered VTE Drug Contraindication: N/A - Med Ordered
[2025-03-03] MEDS: vancomycin HCL 1,500 MG in 0.9 % Sodium Chloride 500 ML 333.33 MG IV (23:03)
[2025-03-03 23:05] VITALS: BP 125/68; PULSE 106; RESP 14; O2SAT 95
[2025-03-03 23:48] VITALS: BP 105/58; PULSE 95; RESP 18; TEMP 37.3
[2025-03-04] VITALS (14 sets, daily range): BP systolic 91–104; BP diastolic 55–72; PULSE 67–95; RESP 11–18; TEMP 36.2–37.3; O2SAT 90–100; BMI 21.1
--- NOTE | 2025-03-04 00:04 | PC.NURSE ---
pt resting with eyes closed, breathing even and unlabored, blood transfusing. O2 dropping to 90% on RA, pt placed on 2L NC
[2025-03-04 00:19] LABS: Reflex Lactate? Lactic Acid Added
[2025-03-04] MEDS: Octreotide Acetate 100 MCG/ML AMPUL 50 MCG IVPUSH (00:50)
[2025-03-04] MEDS: Pantoprazole Sodium 40 MG/10 ML VIAL IVPUSH ×2 (00:50→06:04)
[2025-03-04] MEDS: Magnesium Sulfate/H2O 2 GM/50 ML PIGGYBACK IV (00:54)
[2025-03-04] MEDS: Octreotide Acetate 500 MCG in 0.9 % Sodium Chloride 500 ML 50.1 MCG IVCONT (00:58)
[2025-03-04 01:14] LABS: ~Lactic Acid-LAB USE ONLY 1.3 mmol/L (0.5-2.0)
--- NOTE | 2025-03-04 03:24 | PC.NURSE ---
pt asking for food, explained pt the he was NPO. pt states i am not waiting to eat, i will leave here . pt went back to resting with eyes closed.
--- NOTE | 2025-03-04 04:18 | PC.NURSE ---
hospitalist okay with BP at this time, will hold off on albumin, per Allison [employer].
[2025-03-04] MEDS: diazePAM 10 MG/2 ML CARTRIDGE 5 MG IVPUSH (04:29)
[2025-03-04 05:32] LABS: MANUAL DIFF FLAG NO
[2025-03-04 05:34] LABS: Basophils Percent Auto 0.4 % (0-2); Eosinophils Absolute Auto 0.1 X10*3/uL (0.0-0.4); Eosinophils Percent Auto 0.8 % (0-4); Hematocrit 23.4 % (42.0-52.0); Imm Gran Abs Auto 0.06 X10*3/uL (0.00-0.03); Imm Gran Pct Auto 0.7 % (0.0-0.4); Lymphocytes Absolute Auto 1.4 X10*3/uL (1.2-4.9); Lymphocytes Percent Auto 17.1 % (20-40); Mean Corpuscular HGB Conc 29.9 g/dl (31.0-36.0); Mean Corpuscular Hemoglobin 20.7 pg (27.0-33.0); Mean Corpuscular Volume 69.2 fL (80.0-98.0); Mean Platelet Volume 9.9 fL (9.4-12.4); Monocytes Absolute Auto 1.3 X10*3/uL (0.1-1.2); Monocytes Percent Auto 15.5 % (2-11); Neutrophils Absolute Auto 5.4 x10*3/uL (2.0-8.3); Neutrophils Percent Auto 65.5 % (45-73); Platelet Count 193 X10*3/uL (160-400); Red Blood Count 3.38 X10*6/uL (4.60-5.80); White Blood Count 8.3 X10*3/uL (4.8-10.8)
[2025-03-04 05:47] LABS: Alanine Aminotransferase 80 U/L (0-40); Albumin Level 2.6 g/dL (3.5-5.0); Alkaline Phosphatase 150 U/L (39-117); Anion Gap 13 (12-20); Aspartate Amino Transferase 68 U/L (5-37); Bilirubin Total 1.5 mg/dL (0.0-1.0); Blood Urea Nitrogen 18 mg/dL (9-16); Calcium 7.2 mg/dL (8.4-10.2); Carbon Dioxide 16 mmol/L (22-29); Chloride 113 mmol/L (96-108); Creatinine Clr Calc Pharmacy 123.5; Estimated Glomerular Filt Rate > 60; Glucose Random 97 mg/dL (60-115); Potassium 3.7 mmol/L (3.3-5.1); Sodium 138 mmol/L (135-145); Total Protein 5.1 g/dL (6.5-8.0)
[2025-03-04] MEDS: Albumin Human 25 % 50 ML 100 ML IV ×2 (06:04→06:39)
--- NOTE | 2025-03-04 07:00 | CA_ITS ---
Transthoracic Echocardiogram Patient (Last, First, Middle): Norberto Marquez, Gender: Male Date of : 1990 Age: 34 Procedure Date: 03/04/2025 Procedure Type: Transthoracic Echocardiogram [place] [facility] [place] Height: 177.8 cm Weight: 66.68 kg BSA: 1.83 m2 Heart Rate: bpm BP: 103 / 72 mmHg Registered Private Duty Nurse: DAGOBERTO Alvarez MD: Allison Mejía [facility] Charge Entry: Clyde Delaney MD Symptoms: ? endocarditis Study Quality: Adequate ECG Rhythm: Sinus Conclusions: - 1. Low normal LV ejection fraction 50-55% 2. Dilated right atrium 3. Stenosis of the bioprosthetic tricuspid valve 4. Possible vegetation of the anterior mitral leaflet with mild mitral regurgitation 5. Significantly elevated right atrial pressures 6. No gross pericardial effusion Findings Left Ventricle Normal left ventricular cavity size. There is normal left ventricular wall thickness. The left ventricular systolic function is low normal. The visually estimated ejection fraction is between 50-55%. Spectral Doppler is indicative of a normal filling pattern. Right Ventricle Mildly increased right ventricular cavity size. Atria The left atrium is likely dilated. There is no evidence of interatrial shunt. The right atrium is moderately dilated. Aortic Valve Normal aortic valve structure and function. There is no aortic valve stenosis. There is no aortic valve regurgitation. Mitral Valve There is mild anterior mitral leaflet thickening. There is mild mitral valve regurgitation. There is no mitral valve stenosis. There is a small mobile mass on the anterior mitral valve leaflet. The mass is consistent with vegetation. Pulmonic Valve The pulmonic valve was not well visualized. Tricuspid Valve A bioprosthetic tricuspid valve is present. The prosthetic tricuspid valve appears to be functioning abnormally. Echo findings are consistent with stenosis of the tricuspid valve prosthesis. Great Vessels All visible segments of the aorta are normal in size. The pulmonary artery was not well visualized. Venous The inferior vena cava is moderately dilated and does not collapse with inspiration. Pericardium/Pleural There is no evidence of pericardial effusion. Prior Study Comparison Changes noted compared to prior study dated: 03/31/2024. LV ejection fraction has marginally improved. There appears to be still persistent stenosis of the bioprosthetic tricuspid valve. Also possible vegetation of the mitral valve Recommendations, Care & Conclusions Consider a ALDAIR if clinically appropriate. Measurements 2D Linear Measurements IVSd: 0.94 0.6-0.9/0.6-1.0 cm LVIDd: 5.11 3.9-5.3/4.2-5.9 cm LVIDd Index: 2.79 2.4-3.2/2.2-3.1 cm/m2 LVIDs: 3.85 2.0-3.6 cm LVPWd: 0.99 0.7-1.1 cm Ao Root: 4.00 2.1-3.5 cm LA Diam: 4.10 2.7-3.8/3.0-4.0 cm LAIDs Index: 2.24 1.5-2.3 cm/m2 LV Mass: 224.72 67-162/88-224 g LV Mass Index: 122.80 43-95/49-115 g/m2 LVOT Diam: 2.10 3.0+(-)1.3 cm 2D Systolic Function EF 4C: 52.30 >55% EF 2C: 50.30 >55% EF BiP: 50.90 >55% Mitral Valve MV Pk E: 0.62 MV PK A: 0.51 MV Decel Time: 308.00 E/A: 1.20 E'Lateral: 12.10 E'Medial: 5.66 E/E' Med: 10.90 E/E' Lat: 5.10 PHT: 90.00 MVA PHT: 2.44 Decel [place]: 2.00 Aortic Valve AoV Pk Dalton: 1.16 AoV Mn Dalton: 0.69 AoV VTI: 0.21 AoV Pk Grad: 5.00 Aov Mn Grad: 2.00 ISABELLA Cont.VTI: 3.34 LVOT LVOT Pk Dalton: 0.92 LVOT Mn Dalton: 0.66 LVOT VTI: 0.20 LVOT Pk Grad: 3.00 LVOT Mn Grad: 2.00 LVOT Diam: 2.10 LVOT Area: 3.46 Diastolic Function MV Pk E: 0.62 MV Pk A: 0.51 E/A: 1.20 E'Medial: 5.66 E/E' Med: 10.90 E' Laterial: 12.10 E/E' Lat: 5.10 Right Ventricle TAPSE (mm): 14.30 TVS' Dalton: 8.16 Tricuspid Valve TV Pk Dalton: 2.01 TV Mn Dalton: 1.55 TV Pk Grad: 16.00 TV Mn Grad: 10.00 TR Pk Dalton: 1.79 TR Pk Grad: 13.00 RA Press: 15.00 RVSP: 28.00 Great Vessels Aorta Ao Root-2D: 4.00 2.0-3.7 cm Ao Asc: 3.30 2.1-3.4 cm Ao Arch: 2.70 Updated in Other Vendor System with Status of Final Clyde Delaney MD electronically signed on 03/05/2025 1:37:10 PM with status of Final
[2025-03-04 07:35] LABS: Hepatitis A Antibody IgM 0.27 Index (0-0.79); ~Hepatitis A Antibody IgM Nonreactive (Nonreactive)
[2025-03-04 08:03] LABS: HBS Num1 36.31 mIU/mL (0-7.99); HBc Num1 0.09 S/CO (0.00-0.79); HIV AB/AG Nonreactive (Nonreactive); HIV Num 1 0.07 S/CO (0.00-0.99); Hepatitis B Core Antibody Nonreactive (Nonreactive); Hepatitis B Surface Antigen Negative (Negative); ~HepC Num1 14.16 S/CO (0.00-0.79); ~Hepatitis B Surface Antibody REACTIVE (Nonreactive); ~Hepatitis C Antibody Reactive (Nonreactive)
--- NOTE | 2025-03-04 09:31 | PHA.MEDREC ---
Addendum entered by Piedad [facility] 03/04/25 16:17: Reviewed by [facility] Original Note: Pharmacy Consult ? Medication Reconciliation Pharmacy has completed the medication reconciliation. Pt drowsy, but was able to confirm meds with them. Unable to confirm which clinic methadone is received from.
--- NOTE | 2025-03-04 10:34 | HE.PHANOTE ---
METHADONE RN states could not call the methadone clinic, as they are closed. This [facility] called the clinic and confirmed the pt last received 115mg on 03/02 at the [facility] per DAVID Tamayo.
[2025-03-04] MEDS: methADONE HCl 20 MG/2 ML ORAL.CONC 115 MG PO (10:44)
--- NOTE | 2025-03-04 11:12 | PM.EVENT ---
Event Note Date of Service: 03/04/25 Event Note: GI consult dictated No evidence of gi bleeding decrease in hct may be related to lower extremity vv bleeding that is described in his prior ER visit from yesterday. Diet advanced, octreotide stopped. He can f'u with [facility] (reports EGD there in last year). Time Spent With Patient Time: Total time managing care of this patient today ____ minutes.
[2025-03-04 12:01] LABS: Hematocrit 27.4 % (42.0-52.0); Hemoglobin 7.8 g/dl (14.0-18.0)
[2025-03-04] MEDS: vancomycin HCL 1,250 MG in 0.9 % Sodium Chloride 250 ML 166.67 MG IV (12:19)
[2025-03-04] MEDS: Bacitracin Oint 14 GM TUBE 1 APPL TOPICAL (12:19)
[2025-03-04] MEDS: 0.9 % Sodium Chloride Flush 3 ML SYRINGE IVFLUSH ×2 (12:20→17:55)
--- NOTE | 2025-03-04 12:20 | CONS_ITS ---
DATE OF SERVICE: 03/04/2025 REFERRING PHYSICIAN: Allison Mejía NP REASON FOR CONSULTATION: Question of GI bleeding. HISTORY OF PRESENT ILLNESS: The patient is a pleasant 34-year-old man with a history of substance abuse disorder, who was admitted to the hospital after presenting to the emergency room yesterday with weakness and possible withdrawal. He had lab work done, which showed a decrease in his hematocrit to 20.6 from 25.8 four days ago. He was seen earlier in the ER yesterday with bleeding from varicose vein in the legs. No hematocrit was checked at that time. As part of his evaluation, he had additional lab work done and received 2 units of packed red blood cells with an increase in his hematocrit to 23.4 from 20.6. He was admitted to the hospital and given intravenous octreotide, although he has no history of GI bleeding and no known history of varicose veins in the esophagus. His last imaging study of the abdomen showed mild to moderate ascites in the right lower quadrant. A paracentesis was unsuccessful. CT scanning in January of this year is reported as showing a nodular surface to the liver with a trace of fluid throughout the portal triads, changes were consistent with hepatocellular disease and cirrhosis could not be excluded. The patient's records indicate a history of hepatitis C. He continues to use intravenous drugs, but denies significant alcohol intake. He reports undergoing upper endoscopy approximately a year ago at [facility], and those results are unavailable and unknown. They will be obtained. He denies having had colonoscopy in the past. PAST MEDICAL HISTORY: 1. Intravenous drug usage and substance abuse. 2. Hepatitis C. 3. DVT/PE. 4. Endocarditis and tricuspid valve repair. 5. Rhabdomyolysis. 6. Right-sided heart failure. 7. Fatty liver. CURRENT MEDICATIONS: Current medication list is reviewed in the medical record. ALLERGIES: THERE ARE NONE REPORTED. FAMILY HISTORY: This is reviewed in electronic medical record. SOCIAL HISTORY: Reviewed in electronic medical record. REVIEW OF SYSTEMS: This is not reliably obtainable as the patient frequently nods off during the interview. PHYSICAL EXAMINATION: GENERAL: Pleasant male, sitting comfortably in bed, asking for a chicken salad sandwich. VITAL SIGNS: Reviewed in electronic medical record and are stable skin is anicteric HEENT shows no scleral icterus. NECK: Without lymphadenopathy or thyromegaly. LUNGS: Clear. HEART: Regular rate and rhythm. S1, S2. No murmur. ABDOMEN: Soft without focal masses or tenderness. Bowel sounds are present. No organomegaly is noted. EXTREMITIES: Without edema. There is an ulcer on the left lower extremity measuring approximately 2.5 x 1.7 cm. IMPRESSION: Anemia. He does not show any signs of gastrointestinal bleeding at this time. I have stopped his octreotide and he can be placed on an oral proton pump inhibitor. I do not think he needs endoscopy for any GI bleeding as none has been seen since his admission. His blood loss is likely related to his history of bleeding from a varicose vein in the left lower extremity as described in his previous emergency room visit. He can follow up as an outpatient with [facility] were he has been evaluated before. Thanks for asking me to see him. I will follow him in the hospital as needed. MD ADRIEL Brewer/MODL / [phone]
--- NOTE | 2025-03-04 13:28 | MHC.CM.PN ---
[place], PCP confirmed: Dr. Martini. HCP is on file and confirmed: Brittany Dover. DCP is for pt. to go back on the streets, or to go to a family member's home. CM to follow for DC needs.
--- NOTE | 2025-03-04 14:11 | P.PNIM_ITS ---
Subjective Subjective Date of Service: 03/04/25 Interval History: No hematemesis, hematochezia, or melena. Denies abd pain. Last fever 103.4 @ 22:08. Transfused 2u pRBCs. Review of Systems Review of Systems: Yes all other systems are reviewed and are negative Physical Exam 2 Vital Signs: Vital Signs: Last Vital Signs Temp 97.4 F 03/04/25 11:59 Pulse 72 03/04/25 11:59 Resp 18 03/04/25 11:59 BP 103/72 03/04/25 11:59 Pulse Ox 94 03/04/25 11:59 O2 Del Method Room Air 03/04/25 11:59 O2 Flow Rate 2 03/04/25 04:55 BMI result Body Mass Index 21.1 Gen: in no acute distress HEENT: sclera anicteric, moist mucus membranes Neck: supple Lungs: clear to auscultation bilaterally Heart: regular rate and rhythm, sternotomy scar, 3/6 systolic murmur along LSB Abd: soft, non-tender, non-distended Ext: no edema, L anthony ulcer, RLE>LLE edema Skin: warm/well-perfused Neuro: alert and oriented x3, no focal findings Psych: irritable Objective Data Active Medications Acetaminophen (Acetaminophen 325 Mg Tablet) 650 mg PO Q6H PRN PRN Reason: Pain, Mild 1-3,fever,headache Albuterol/Ipratropium (Albuterol/Iprat 2.5/0.5mg 3 Ml Ampul.Neb) 3 ml INHALE Q4H PRN PRN Reason: Shortness of Breath/Wheezing Bacitracin (Bacitracin Oint 14 Gm Tube) 1 appl TOPICAL DAILY CRISTINA; Protocol Last Admin: 03/04/25 12:19 Dose: 1 appl Documented By: JIMBO Budesonide (Budesonide 0.5 Mg/2 Ml Ampul.Neb) 0.5 mg INHALE RBID CRISTINA Last Admin: 03/04/25 07:47 Dose: Not Given Documented By: SALMA Non-Admin Reason: Patient Refused Calcium Carbonate (Calcium Carbonate 750 Mg Tab.Chew) 750 mg PO Q4H PRN PRN Reason: Heartburn Ceftriaxone Sodium (Ceftriaxone Sodium 2 Gm Vial) 2 gm IVPUSH Q24H [facility] Diphenhydramine HCl (Diphenhydramine Hcl 25 Mg Capsule) 25 mg PO Q6H PRN PRN Reason: itch Vancomycin HCl 1,250 mg/ (Sodium Chloride) 250 mls @ 166.667 mls/hr IV Q12H [facility] Last Infusion: 03/04/25 13:50 Dose: Infused Documented By: JIMBO Magnesium Hydroxide (Milk Of Magnesia 30 Ml Oral.Susp) 30 ml PO DAILY PRN PRN Reason: Constipation Melatonin (Melatonin 3 Mg Tablet) 6 mg PO BEDTIME PRN PRN Reason: Insomnia Methadone HCl (Methadone Hcl 20 Mg/2 Ml Oral.Conc) 115 mg PO DAILY@0800 [facility] Last Admin: 03/04/25 10:44 Dose: 115 mg Documented By: JIMBO Co-signed By: GENNA Omeprazole (Omeprazole 40 Mg Capsule.Dr) 40 mg PO DAILY@0630 [facility] Ondansetron HCl (Ondansetron Hcl 4 Mg/2 Ml Vial) 4 mg IVPUSH Q8H PRN PRN Reason: Nausea and Vomiting Pharmacy Consult (Consult Rx Vancomycin Dosing) 1 each MISCELLANE DAILY [facility] Senna (Sennosides 8.6 Mg Tablet) 17.2 mg PO BEDTIME [facility] Sodium Chloride (0.9 % Sodium Chloride Flush 3 Ml Syringe) 3 ml IVFLUSH QSHIFT [facility] Last Admin: 03/04/25 12:20 Dose: 3 ml Documented By: JIMBO Labs 03/04/25 11:49 03/04/25 05:14 Labs: Laboratory Results - last 24 hr 03/03/25 03/03/25 03/03/25 21:16 22:15 22:26 MCV 66.5 L MCH 19.7 L MCHC 29.6 L RDW 21.9 H Plt Count 230 MPV 9.4 Immature Gran % (Auto) 1.0 H Neut % (Auto) 70.5 Lymph % (Auto) 13.9 L Tw[place]gs % (Auto) 12.6 H Eos % (Auto) 1.6 Baso % (Auto) 0.4 Lymph # (Auto) 1.1 L [place] # (Auto) 1.0 Eos # (Auto) 0.1 Baso # (Auto) 0.0 Abs Immat Gran (auto) 0.08 H Absolute Neuts (auto) 5.4 Absolute Nucleated RBC 0.070 H Nucleated RBC % (auto) 0.9 H PT 27.7 H D INR 2.4 H APTT 36.6 Anion Gap 16 Estim Creat Clear Calc 100.4 Estimated GFR > 60 Random Glucose 74 Lactic Acid 2.6 H* Lactic Acid F/U @ 2Hr Calcium 8.0 L D Magnesium Total Bilirubin 1.4 H AST 70 H ALT 103 H Alkaline Phosphatase 181 H Total Protein 6.4 L Albumin 3.3 L Ethyl Alcohol < 10 Hepatitis A IgM Ab Hep Bs Antigen Hep Bs Antibody Hep B Core Total Ab Hepatitis C Ab (EIA) HIV 1&2 Ab/P24 Ag 4thGn Blood Type O Positive Antibody Screen NEGATIVE Crossmatch See Detail 03/04/25 03/04/25 03/04/25 00:49 05:14 05:14 MCV 69.2 L MCH 20.7 L MCHC 29.9 L RDW 24.0 H Plt Count 193 MPV 9.9 Immature Gran % (Auto) 0.7 H Neut % (Auto) 65.5 Lymph % (Auto) 17.1 L [place] % (Auto) 15.5 H Eos % (Auto) 0.8 Baso % (Auto) 0.4 Lymph # (Auto) 1.4 [place]gs # (Auto) 1.3 H Eos # (Auto) 0.1 Baso # (Auto) 0.0 Abs Immat Gran (auto) 0.06 H Absolute Neuts (auto) 5.4 Absolute Nucleated RBC 0.000 Nucleated RBC % (auto) 0.0 PT INR APTT Anion Gap 13 Estim Creat Clear Calc 123.5 Estimated GFR > 60 Random Glucose 97 Lactic Acid Lactic Acid F/U @ 2Hr 1.3 Calcium 7.2 L D Magnesium 2.0 Cancelled Total Bilirubin 1.5 H AST 68 H ALT 80 H Alkaline Phosphatase 150 H Total Protein 5.1 L Albumin 2.6 L Ethyl Alcohol Hepatitis A IgM Ab Nonreactive Hep Bs Antigen Negative Hep Bs Antibody REACTIVE Hep B Core Total Ab Nonreactive Hepatitis C Ab (EIA) Reactive H HIV 1&2 Ab/P24 Ag 4thGn Nonreactive Blood Type Antibody Screen Crossmatch Assessment and Plan (1) Drug abuse, IV: Status: Acute Plan d2 for 34yo M with hx MSSA endocarditis s/p tricuspid valve repair in 2019, heroin + cocaine abuse, DVT/PE, untreated HCV, cirrhosis presenting with withdrawal symptoms, found to be febrile and anemic fever - high suspicion for bacteremia given ongoing injection drug uase; continue vancomycin + ceftriaxone 03/03 and follow BCx, TTE pending L anthony wound - Wound Care consult anemia - FOBT negative, GI consulted, likely blood loss from burst varicose vein on leg, d/c octreotide, change IV to PO PPI pneumonitis - likely due to drug abuse - off O2 hx PE/DVT - resume apixaban when no longer concerned for bleeding; pt though has been noncompliant QTc prolongation - 526 ms on entry, repeat EKG; given 2g magnesium sulfate yesterday heroin abuse - continue methadone - HBV immune, HCV viral load pending, HIV negative cirrhosis - needs outpt GI f/u VTE ppx - SCDs dispo - TBD In my clinical judgment, the patient requires continued inpatient hospitalization for the following reasons: IV ABX Total time managing care of this patient today: 45 minutes. Quality Stroke Does the patient have a stroke diagnosis?: No Reason for No Anti-thrombotic by Day Two: Contraindicated VTE Prior VTE?: No VTE Risk Level:: Medical - moderate - high VTE Device Contraindication: N/A - Device Ordered VTE Drug Contraindication: N/A - Med Ordered
--- NOTE | 2025-03-04 15:05 | HO.ADDICT_ITS ---
History of Present Illness Date of Service: 03/04/2025 Chief Complaint: AMS, fever Reason for Consult: DOMINIK Sources of Information: patient interviewed and chart reviewed HPI Narrative: Patient is a 34 year old male with history of OUD, endocardidits with tricuspid valve replacment, DVT and PE, cirrhosis of the liver. Currently medically admitted with bacteremia and pneumonitis likely secondary to ongoing IVDU. Febrile overnight and requiring RBC transfusion Patient seen in room 460, he is asleep upon arrival, but wakes to voice. Well known to t/w via previous admissions. He appears weak with difficulty staying awake, however very focused on food when he is awake. No withdrawal noted or reported Methadone dose verified and administered -115mg QD, still engaged in treatment with [facility] OTP Unclear how much cocaine or fentanyl he is using at this time as his response is not alot . Labs and EKG reviewed -prolonged QTc Past Psychiatric History: Not reviewed Medical Evaluation Reviewed: Yes Review of Systems Review of Systems Yes Unobtainable due to mental status Diagnostics Vital Signs (24Hr): Vital Signs - 24 hr 03/03/25 22:08 03/03/25 23:05 03/03/25 23:48 Temperature 103.4 F H 99.1 F Pulse Rate 108 H 106 H 95 Respiratory Rate 18 14 18 Blood Pressure 112/60 125/68 105/58 L Pulse Oximetry 94 95 Oxygen Delivery Method Room Air Room Air Oxygen Flow Rate 03/04/25 00:01 03/04/25 00:03 03/04/25 00:06 Temperature 99.1 F 99.0 F Pulse Rate 91 95 Respiratory Rate 12 13 Blood Pressure 98/62 101/65 Pulse Oximetry 90 L 96 Oxygen Delivery Method Room Air Nasal Cannula Oxygen Flow Rate 2 03/04/25 01:06 03/04/25 01:33 03/04/25 02:45 Temperature 98.0 F Pulse Rate 80 81 77 Respiratory Rate 13 12 12 Blood Pressure 103/72 95/63 91/56 L Pulse Oximetry 97 97 Oxygen Delivery Method Nasal Cannula Nasal Cannula Oxygen Flow Rate 2 2 03/04/25 02:51 03/04/25 03:11 03/04/25 03:55 Temperature 98.0 F 97.7 F 97.5 F Pulse Rate 78 73 73 Respiratory Rate 11 L 12 14 Blood Pressure 95/64 93/59 L 96/58 L Pulse Oximetry 100 Oxygen Delivery Method Nasal Cannula Oxygen Flow Rate 2 03/04/25 04:55 03/04/25 06:02 03/04/25 11:59 Temperature 97.5 F 97.6 F 97.4 F Pulse Rate 69 67 72 Respiratory Rate 17 18 18 Blood Pressure 91/55 L 98/55 L 103/72 Pulse Oximetry 99 94 Oxygen Delivery Method Nasal Cannula Room Air Oxygen Flow Rate 2 BMI result Body Mass Index 21.1 Labs 03/04/25 11:49 03/04/25 05:14 Labs: Laboratory Results - last 48 hr 03/03/25 03/03/25 03/03/25 21:16 22:15 22:26 WBC 7.6 RBC 3.10 L Hgb 6.1 L* Hct 20.6 L* D MCV 66.5 L MCH 19.7 L MCHC 29.6 L RDW 21.9 H Plt Count 230 MPV 9.4 Immature Gran % (Auto) 1.0 H Neut % (Auto) 70.5 Lymph % (Auto) 13.9 L [place] % (Auto) 12.6 H Eos % (Auto) 1.6 Baso % (Auto) 0.4 Lymph # (Auto) 1.1 L [place] # (Auto) 1.0 Eos # (Auto) 0.1 Baso # (Auto) 0.0 Abs Immat Gran (auto) 0.08 H Absolute Neuts (auto) 5.4 Absolute Nucleated RBC 0.070 H Nucleated RBC % (auto) 0.9 H PT 27.7 H D INR 2.4 H APTT 36.6 Sodium 138 Potassium 4.0 Chloride 109 H Carbon Dioxide 17 L Anion Gap 16 BUN 19 H Creatinine 1.05 Estim Creat Clear Calc 100.4 Estimated GFR > 60 Random Glucose 74 Lactic Acid 2.6 H* Lactic Acid F/U @ 2Hr Calcium 8.0 L D Magnesium Total Bilirubin 1.4 H AST 70 H ALT 103 H Alkaline Phosphatase 181 H Troponin I High Sens < 2.7 Total Protein 6.4 L Albumin 3.3 L Ethyl Alcohol < 10 Hepatitis A IgM Ab Hep Bs Antigen Hep Bs Antibody Hep B Core Total Ab Hepatitis C Ab (EIA) HIV 1&2 Ab/P24 Ag 4thGn Blood Type O Positive Antibody Screen NEGATIVE Crossmatch See Detail 03/04/25 03/04/25 03/04/25 00:49 05:14 05:14 WBC 8.3 RBC 3.38 L Hgb 7.0 L* Hct 23.4 L MCV 69.2 L MCH 20.7 L MCHC 29.9 L RDW 24.0 H Plt Count 193 MPV 9.9 Immature Gran % (Auto) 0.7 H Neut % (Auto) 65.5 Lymph % (Auto) 17.1 L [place] % (Auto) 15.5 H Eos % (Auto) 0.8 Baso % (Auto) 0.4 Lymph # (Auto) 1.4 [place] # (Auto) 1.3 H Eos # (Auto) 0.1 Baso # (Auto) 0.0 Abs Immat Gran (auto) 0.06 H Absolute Neuts (auto) 5.4 Absolute Nucleated RBC 0.000 Nucleated RBC % (auto) 0.0 PT INR APTT Sodium 138 Potassium 3.7 Chloride 113 H Carbon Dioxide 16 L Anion Gap 13 BUN 18 H Creatinine 0.78 Estim Creat Clear Calc 123.5 Estimated GFR > 60 Random Glucose 97 Lactic Acid Lactic Acid F/U @ 2Hr 1.3 Calcium 7.2 L D Magnesium 2.0 Cancelled Total Bilirubin 1.5 H AST 68 H ALT 80 H Alkaline Phosphatase 150 H Troponin I High Sens Total Protein 5.1 L Albumin 2.6 L Ethyl Alcohol Hepatitis A IgM Ab Nonreactive Hep Bs Antigen Negative Hep Bs Antibody REACTIVE Hep B Core Total Ab Nonreactive Hepatitis C Ab (EIA) Reactive H HIV 1&2 Ab/P24 Ag 4thGn Nonreactive Blood Type Antibody Screen Crossmatch 03/04/25 11:49 WBC RBC Hgb 7.8 L Hct 27.4 L MCV MCH MCHC RDW Plt Count MPV Immature Gran % (Auto) Neut % (Auto) Lymph % (Auto) [place] % (Auto) Eos % (Auto) Baso % (Auto) Lymph # (Auto) [place] # (Auto) Eos # (Auto) Baso # (Auto) Abs Immat Gran (auto) Absolute Neuts (auto) Absolute Nucleated RBC Nucleated RBC % (auto) PT INR APTT Sodium Potassium Chloride Carbon Dioxide Anion Gap BUN Creatinine Estim Creat Clear Calc Estimated GFR Random Glucose Lactic Acid Lactic Acid F/U @ 2Hr Calcium Magnesium Total Bilirubin AST ALT Alkaline Phosphatase Troponin I High Sens Total Protein Albumin Ethyl Alcohol Hepatitis A IgM Ab Hep Bs Antigen Hep Bs Antibody Hep B Core Total Ab Hepatitis C Ab (EIA) HIV 1&2 Ab/P24 Ag 4thGn Blood Type Antibody Screen Crossmatch Mental Status Exam Mental Status Exam Patient Appearance: Fatigued Level of Consciousness: Drowsy and Lethargic Affect Description: Blunted Judgement: Fair Medications Medications Current Medications Acetaminophen (Acetaminophen 325 Mg Tablet) 650 mg PO Q6H PRN PRN Reason: Pain, Mild 1-3,fever,headache Albuterol/Ipratropium (Albuterol/Iprat 2.5/0.5mg 3 Ml Ampul.Neb) 3 ml INHALE Q4H PRN PRN Reason: Shortness of Breath/Wheezing Bacitracin (Bacitracin Oint 14 Gm Tube) 1 appl TOPICAL DAILY [facility]; Protocol Last Admin: 03/04/25 12:19 Dose: 1 appl Budesonide (Budesonide 0.5 Mg/2 Ml Ampul.Neb) 0.5 mg INHALE RBID [facility] Last Admin: 03/04/25 07:47 Dose: Not Given Calcium Carbonate (Calcium Carbonate 750 Mg Tab.Chew) 750 mg PO Q4H PRN PRN Reason: Heartburn Ceftriaxone Sodium (Ceftriaxone Sodium 2 Gm Vial) 2 gm IVPUSH Q24H [facility] Diphenhydramine HCl (Diphenhydramine Hcl 25 Mg Capsule) 25 mg PO Q6H PRN PRN Reason: itch Vancomycin HCl 1,250 mg/ (Sodium Chloride) 250 mls @ 166.667 mls/hr IV Q12H [facility] Last Infusion: 03/04/25 13:50 Dose: Infused Magnesium Hydroxide (Milk Of Magnesia 30 Ml Oral.Susp) 30 ml PO DAILY PRN PRN Reason: Constipation Melatonin (Melatonin 3 Mg Tablet) 6 mg PO BEDTIME PRN PRN Reason: Insomnia Methadone HCl (Methadone Hcl 20 Mg/2 Ml Oral.Conc) 115 mg PO DAILY@0800 [facility] Last Admin: 03/04/25 10:44 Dose: 115 mg Omeprazole (Omeprazole 40 Mg Capsule.Dr) 40 mg PO DAILY@0630 [facility] Ondansetron HCl (Ondansetron Hcl 4 Mg/2 Ml Vial) 4 mg IVPUSH Q8H PRN PRN Reason: Nausea and Vomiting Pharmacy Consult (Consult Rx Vancomycin Dosing) 1 each MISCELLANE DAILY [facility] Senna (Sennosides 8.6 Mg Tablet) 17.2 mg PO BEDTIME [facility] Sodium Chloride (0.9 % Sodium Chloride Flush 3 Ml Syringe) 3 ml IVFLUSH QSHIFT [facility] Last Admin: 03/04/25 12:20 Dose: 3 ml Allergies Allergies Allergy/AdvReac Type Severity Reaction Status Date / Time No Known Allergies Allergy Verified 03/03/25 20:55 [No Known Allergies*] Assessment & Plan Assessment & Plan (1) Opioid use disorder, severe, dependence: Status: Acute Code(s): F11.20 - Opioid dependence, uncomplicated Assessment and Plan: * methadone home dose already ordered * should repeat EKG as QTc was prolonged at time of admission * will continue to follow Total time managing care of this patient today ___30_ minutes. PMFSH Past Medical History Medical History Rhabdomyolysis Anemia LUCERO (acute kidney injury) Polysubstance abuse Opioid use disorder Opioid use disorder, severe, dependence Substance abuse MSSA bacteremia Bacteremia Bacteremia Right heart failure Steatosis, liver Tricuspid valve stenosis Anasarca HCV (hepatitis C virus) Endocarditis Pulmonary embolism Surgical History Surgical History History of tricuspid valve replacement with bioprosthetic valve Social History Social History Household Members: Unknown / Unable to assess Household Members Other:: assisted Housing: Unknown / Unable to assess Do you presently have visiting nurse or other home services: No Unable to assess alcohol history related to: Unknown Alcohol intake: never Patient Tobacco Use Status: Tobacco use Unknown Tobacco use type: Cigarette Cigarette Packs Per Day: 0.5 Cigarettes Per Day: 10.0 Years Smoked: 10 Second Hand Smoke Exposure: No Substance Use Type: Crack/Cocaine, Heroin and IV Drugs Advance Directives Date on File: 04/16/21 service: No Current occupational status: unemployed
--- NOTE | 2025-03-04 15:49 | PC.NURSE ---
refused VS in am, asking to be disconnected from all IV'S d/t leaving AMA, refused EKG , Dr Novak present at the bedside to explain all the risk of leaving AMA. Pt decided to stay , refused EKG . MD lane
[2025-03-04 21:33] LABS: Vancomycin Random 21.8 mcg/mL (15-20)
[2025-03-04] MEDS: cefTRIAXone sodium 2 GM VIAL IVPUSH (21:42)
[2025-03-04] MEDS: vancomycin HCL 750 MG in 0.9 % Sodium Chloride 250 ML 265 MG IV (23:40)
[2025-03-05] VITALS: BP 102/63; PULSE 83; RESP 17; TEMP 36.4; O2SAT 95
--- NOTE | 2025-03-05 | ECG_ITS ---
Test Reason : ROUTINE EKG Blood Pressure : */* mmHG Vent. Rate : 85 BPM Atrial Rate : 85 BPM P-R Int : 144 ms QRS Dur : 98 ms QT Int : 454 ms P-R-T Axes : 76 39 -11 degrees QTcB Int : 540 ms Normal sinus rhythm Possible Inferior infarct , age undetermined T wave abnormality, consider anterolateral ischemia Prolonged QT Abnormal ECG When compared with ECG of 03-Mar-2025 21:40, Borderline criteria for Inferior infarct are now Present Referred By: Sherri Novak Electronically Signed By: ANGÉLICA VILLANUEVA MD
[2025-03-05] MEDS: 0.9 % Sodium Chloride Flush 3 ML SYRINGE IVFLUSH ×3 (00:06→16:52)
[2025-03-05 00:16] LABS: OBS Int Ctl Valid YES
[2025-03-05 00:29] LABS: OBS1 NEGATIVE (NEGATIVE)
[2025-03-05 01:07] LABS: CDiff Gene PCR NEGATIVE (Negative)
[2025-03-05 03:51] VITALS: BP 111/64; PULSE 86; RESP 16; TEMP 36.6; O2SAT 96
[2025-03-05 06:00] VITALS: BMI 20.6
[2025-03-05] MEDS: Loperamide HCl 2 MG CAPSULE PO (06:04)
[2025-03-05] MEDS: Omeprazole 40 MG CAPSULE.DR PO (06:05)
[2025-03-05 07:53] VITALS: BP 103/64; PULSE 85; RESP 16; TEMP 36.8; O2SAT 96
[2025-03-05 08:43] LABS: Hematocrit 24.9 % (42.0-52.0); Hemoglobin 7.2 g/dl (14.0-18.0); Mean Corpuscular HGB Conc 28.9 g/dl (31.0-36.0); Mean Corpuscular Hemoglobin 20.6 pg (27.0-33.0); Mean Corpuscular Volume 71.3 fL (80.0-98.0); Mean Platelet Volume 9.8 fL (9.4-12.4); NRBC Pct Auto 0.3 /100WBC (0.0-0.2); Platelet Count 210 X10*3/uL (160-400); Red Blood Count 3.49 X10*6/uL (4.60-5.80); Red Cell Distribution Width 23.6 % (11.0-16.0)
[2025-03-05] MEDS: Bacitracin Oint 14 GM TUBE 1 APPL TOPICAL (08:50)
[2025-03-05 08:52] LABS: INTERNATIONAL NORM RATIO 1.5 (0.9-1.1); Prothrombin Time 17.7 SEC (10.9-12.4)
[2025-03-05 09:05] LABS: Albumin Level 2.9 g/dL (3.5-5.0); Alkaline Phosphatase 138 U/L (39-117); Anion Gap 10 (12-20); Aspartate Amino Transferase 46 U/L (5-37); Bilirubin Total 0.8 mg/dL (0.0-1.0); Blood Urea Nitrogen 18 mg/dL (9-16); Calcium 7.6 mg/dL (8.4-10.2); Carbon Dioxide 16 mmol/L (22-29); Chloride 118 mmol/L (96-108); Creatinine Clr Calc Pharmacy 130.6; Estimated Glomerular Filt Rate > 60; Glucose Random 106 mg/dL (60-115); Iron 19 mcg/dL (45-160); Magnesium 1.7 mg/dL (1.6-2.6); Percent Iron Saturation 7 % (15-50); Potassium 3.3 mmol/L (3.3-5.1); Sodium 141 mmol/L (135-145); Total Iron Binding Capacity 286 mcg/dL (228-428); Total Protein 5.5 g/dL (6.5-8.0); Unsaturated Iron Binding 267 ug/dL
--- NOTE | 2025-03-05 09:08 | PC.NURSE ---
Methadone this am held by Dr Novak d/t EKG results , Dose will be changed by Addiction medicine
--- NOTE | 2025-03-05 09:16 | PM.EVENT ---
Event Note Date of Service: 03/05/25 Event Note: Addiction note: Chart reviewed EKG from 03/05 showing prolonged QTc 540 Mg 1.7 (2.0 on 03/04) Plan -discussed with attending provider -methadone dose reduced to 60mg X1 -if withdrawal sx present, supplement with full opiate agonist -keep Mg above 2 Time Spent With Patient Time: Total time managing care of this patient today ____ minutes.
[2025-03-05 09:18] LABS: Alanine Aminotransferase 67 U/L (0-40)
[2025-03-05] MEDS: Ferrous Sulfate 324 MG TABLET.DR PO (09:48)
[2025-03-05] MEDS: Magnesium Sulfate/H2O 2 GM/50 ML PIGGYBACK IV (09:48)
[2025-03-05 10:05] LABS: Adenovirus F 40/41 Not Detected (Not Detect.); Astrovirus Not Detected (Not Detect.); Campylobacter Not Detected (Not Detect.); Cryptosporidium Not Detected (Not Detect.); Cyclospora cayetanensis Not Detected (Not Detect.); E. coli EAEC Not Detected (Not Detect.); E. coli EPEC Not Detected (Not Detect.); E. coli ETEC Not Detected (Not Detect.); E. coli STEC Not Detected (Not Detect.); Entamoeba histolytica Not Detected (Not Detect.); Giardia lamblia Not Detected (Not Detect.); Norovirus GI/GII Not Detected (Not Detect.); Plesiomonas shigelloides Not Detected (Not Detect.); Rotavirus A Not Detected (Not Detect.); Salmonella Not Detected (Not Detect.); Sapovirus Not Detected (Not Detect.); Shigella sp./EIEC Not Detected (Not Detect.); Vibrio Not Detected (Not Detect.); Vibrio Cholerae Not Detected (Not Detect.); Yersinia enterocolitica Not Detected (Not Detect.)
--- NOTE | 2025-03-05 10:40 | PC.NURSE ---
Pt refused Methadone at this time ,stated that he will take it later
[2025-03-05 11:37] VITALS: BP 116/66; PULSE 93; RESP 15; TEMP 37.1; O2SAT 96
[2025-03-05] MEDS: vancomycin HCL 750 MG in 0.9 % Sodium Chloride 250 ML 265 MG IV (11:46)
--- NOTE | 2025-03-05 11:47 | P.PNIM_ITS ---
Subjective Subjective Date of Service: 03/05/25 Interval History: no further fever No hematemesis, hematochezia, or melena. QTc high at 540 ms today Review of Systems Review of Systems: Yes all other systems are reviewed and are negative Physical Exam 2 Vital Signs: Vital Signs: Last Vital Signs Temp 98.7 F 03/05/25 11:37 Pulse 93 03/05/25 11:37 Resp 15 03/05/25 11:37 BP 116/66 03/05/25 11:37 Pulse Ox 96 03/05/25 11:37 O2 Del Method Room Air 03/05/25 07:53 O2 Flow Rate 2 03/04/25 04:55 BMI result Body Mass Index 20.6 Gen: in no acute distress HEENT: sclera anicteric, moist mucus membranes Neck: supple Lungs: clear to auscultation bilaterally Heart: regular rate and rhythm, sternotomy scar, 3/6 systolic murmur along LSB Abd: soft, non-tender, non-distended Ext: no edema, L anthony ulcer, RLE>LLE edema Skin: warm/well-perfused Neuro: alert and oriented x3, no focal findings Psych: restricted affect Objective Data Active Medications Acetaminophen (Acetaminophen 325 Mg Tablet) 650 mg PO Q6H PRN PRN Reason: Pain, Mild 1-3,fever,headache Albuterol/Ipratropium (Albuterol/Iprat 2.5/0.5mg 3 Ml Ampul.Neb) 3 ml INHALE Q4H PRN PRN Reason: Shortness of Breath/Wheezing Bacitracin (Bacitracin Oint 14 Gm Tube) 1 appl TOPICAL DAILY [facility]; Protocol Last Admin: 03/05/25 08:50 Dose: 1 appl Documented By: JIMBO Budesonide (Budesonide 0.5 Mg/2 Ml Ampul.Neb) 0.5 mg INHALE RBID COUNTS INCLUDE 234 BEDS AT THE [facility] Last Admin: 03/05/25 07:46 Dose: Not Given Documented By: ASHLEIGH Non-Admin Reason: Patient Refused Calcium Carbonate (Calcium Carbonate 750 Mg Tab.Chew) 750 mg PO Q4H PRN PRN Reason: Heartburn Ceftriaxone Sodium (Ceftriaxone Sodium 2 Gm Vial) 2 gm IVPUSH Q24H COUNTS INCLUDE 234 BEDS AT THE [facility] Last Admin: 03/04/25 21:42 Dose: 2 gm Documented By: AUDREY Diphenhydramine HCl (Diphenhydramine Hcl 25 Mg Capsule) 25 mg PO Q6H PRN PRN Reason: itch Ferrous Sulfate (Ferrous Sulfate 324 Mg Tablet.) 324 mg PO DAILY COUNTS INCLUDE 234 BEDS AT THE [facility] Last Admin: 03/05/25 09:48 Dose: 324 mg Documented By: JIMBO Vancomycin HCl 750 mg/ Sodium (Chloride) 265 mls @ 265 mls/hr IV Q12H COUNTS INCLUDE 234 BEDS AT THE [facility] Last Infusion: 03/05/25 00:40 Dose: Infused Documented By: AUDREY Magnesium Hydroxide (Milk Of Magnesia 30 Ml Oral.Susp) 30 ml PO DAILY PRN PRN Reason: Constipation Melatonin (Melatonin 3 Mg Tablet) 6 mg PO BEDTIME PRN PRN Reason: Insomnia Omeprazole (Omeprazole 40 Mg Capsule.) 40 mg PO DAILY@0630 COUNTS INCLUDE 234 BEDS AT THE [facility] Last Admin: 03/05/25 06:05 Dose: 40 mg Documented By: AUDREY Ondansetron HCl (Ondansetron Hcl 4 Mg/2 Ml Vial) 4 mg IVPUSH Q8H PRN PRN Reason: Nausea and Vomiting Pharmacy Consult (Consult Rx Vancomycin Dosing) 1 each MISCELLANE DAILY COUNTS INCLUDE 234 BEDS AT THE [facility] Sodium Chloride (0.9 % Sodium Chloride Flush 3 Ml Syringe) 3 ml IVFLUSH QSHIFT COUNTS INCLUDE 234 BEDS AT THE [facility] Last Admin: 03/05/25 08:50 Dose: 3 ml Documented By: JIMBO Labs 03/05/25 08:02 03/05/25 08:02 Labs: Laboratory Results - last 24 hr 03/04/25 03/04/25 03/05/25 20:55 23:40 08:02 MCV 71.3 L MCH 20.6 L MCHC 28.9 L RDW 23.6 H Plt Count 210 MPV 9.8 Absolute Nucleated RBC 0.020 H Nucleated RBC % (auto) 0.3 H PT 17.7 H D INR 1.5 H Anion Gap 10 L Estim Creat Clear Calc 130.6 Estimated GFR > 60 Random Glucose 106 Calcium 7.6 L Magnesium 1.7 Iron 19 L TIBC 286 % Saturation 7 L Unsat Iron Binding 267 Total Bilirubin 0.8 AST 46 H ALT 67 H Alkaline Phosphatase 138 H Total Protein 5.5 L Albumin 2.9 L Stool Occult Blood NEGATIVE Stl C. cayetanensis PCR Not Detected Stool Rotavirus A PCR Not Detected Stl Adenov F 40/41 PCR Not Detected Stool Astrovirus (PCR) Not Detected Stool Campylobacter PCR Not Detected Stool Cryptosporidium PCR Not Detected Stl Sh Tox Pr E STEC PCR Not Detected Stool E coli O157 PCR Not applicable Stl Enterotoxigenic E PCR Not Detected Stool EPEC (PCR) Not Detected Stool EAEC (PCR) Not Detected Stl E. histolytica PCR Not Detected Stool Giardia Lamblia PCR Not Detected Stl P. shigelloides PCR Not Detected Stool Salmonella PCR Not Detected Stool Sapovirus (PCR) Not Detected Stl Shigella/EIEC PCR Not Detected St Y.enterocolitica PCR Not Detected Stool Vibrio (PCR) Not Detected Stl Vibrio cholerae PCR Not Detected Stl Norovirus GI/GII PCR Not Detected Random Vancomycin 21.8 H C. difficile Tox B Gene NEGATIVE Microbiology Microbiology Results: Microbiology 03/03/25 22:26 Blood Culture - Preliminary Blood - Venous No growth after 24 hours. 03/03/25 22:15 Blood Culture - Preliminary Blood - Venous No growth after 24 hours. Assessment and Plan (1) Drug abuse, IV: Status: Acute Plan d3 for 34yo M with hx MSSA endocarditis s/p tricuspid valve repair in 2019, heroin + cocaine abuse, DVT/PE, untreated HCV, cirrhosis presenting with withdrawal symptoms, found to be febrile and anemic fever with injection drug abuse, history tricuspid valve repair - high suspicion for bacteremia given ongoing injection drug abuse; continue vancomycin + ceftriaxone 03/03- and follow BCx, TTE pending L anthony wound - Wound Care consult pending anemia due to non-GI blood loss - FOBT negative, GI consulted, likely blood loss from burst varicose vein on leg, d/c'ed octreotide, changed IV to PO PPI - transfused 2u pRBCs; continue to monitor H+H pneumonitis - likely due to drug abuse - off O2 hx PE/DVT - resume apixaban when no longer concerned for bleeding; pt, though, has been noncompliant QTc prolongation - 526 ms on entry, 540 ms today; Addiction Medicine consulted and will reduce methadone dose; also give 2g IV Mg sulfate [Mg this AM 1.7]; recheck EKG in AM heroin abuse - continue methadone - HBV immune, HCV viral load pending, HIV negative cirrhosis - needs close outpt GI f/u VTE ppx - SCDs dispo - TBD In my clinical judgment, the patient requires continued inpatient hospitalization for the following reasons: IV ABX Total time managing care of this patient today: 40 minutes. Quality Stroke Does the patient have a stroke diagnosis?: No Reason for No Anti-thrombotic by Day Two: Contraindicated VTE Prior VTE?: No VTE Risk Level:: Medical - moderate - high VTE Device Contraindication: N/A - Device Ordered VTE Drug Contraindication: N/A - Med Ordered
[2025-03-05] MEDS: methADONE HCl 20 MG/2 ML ORAL.CONC 60 MG PO (11:48)
--- NOTE | 2025-03-05 12:01 | P.PNGI_ITS ---
Subjective Subjective Date of Service: 03/05/25 Interval History: tolerating diet no bleeding reported some diarrhea, stool tests pending Critical Care Time (minutes): 0 Physical Exam 2 Vital Signs: Vital Signs: Last Vital Signs Temp 98.7 F 03/05/25 11:37 Pulse 93 03/05/25 11:37 Resp 15 03/05/25 11:37 BP 116/66 03/05/25 11:37 Pulse Ox 96 03/05/25 11:37 O2 Del Method Room Air 03/05/25 07:53 O2 Flow Rate 2 03/04/25 04:55 BMI result Body Mass Index 20.6 Const: Other: appears well GI: Other: abdomen is soft and nontender Objective Data Labs 03/05/25 08:02 03/05/25 08:02 Microbiology Microbiology Results: Microbiology 03/03/25 22:26 Blood - Venous Blood Culture - Preliminary No growth after 24 hours. 03/03/25 22:15 Blood - Venous Blood Culture - Preliminary No growth after 24 hours. Procedures Date of Service Date of Service: 03/05/25 Progress Note: A&P Assessment and plan (1) Bacteremia: Status: Acute Plan stool tests pending continue oral ppi monitor hct Time Spent With Patient Time: Total time managing care of this patient today ____ minutes. Quality Stroke Does the patient have a stroke diagnosis?: No Reason for No Anti-thrombotic by Day Two: Contraindicated VTE Prior VTE?: No VTE Risk Level:: Medical - moderate - high VTE Device Contraindication: N/A - Device Ordered VTE Drug Contraindication: N/A - Med Ordered
[2025-03-05 15:40] VITALS: BP 109/62; PULSE 91; RESP 16; TEMP 37; O2SAT 96
[2025-03-05 19:30] VITALS: BP 121/63; PULSE 93; RESP 18; TEMP 37.5; O2SAT 95
[2025-03-05 21:19] LABS: Vancomycin Random 14.8 mcg/mL (15-20)
[2025-03-05] MEDS: vancomycin HCL 1,000 MG in 0.9 % Sodium Chloride 250 ML 270 MG IV (23:10)
[2025-03-05] MEDS: cefTRIAXone sodium 2 GM VIAL IVPUSH (23:10)
[2025-03-06 03:26] VITALS: BP 115/65; PULSE 94; RESP 18; TEMP 37.1; O2SAT 96
[2025-03-06] MEDS: Omeprazole 40 MG CAPSULE.DR PO (05:52)
[2025-03-06 06:00] VITALS: BMI 20.9
[2025-03-06 07:03] VITALS: BP 133/81; PULSE 99; RESP 18; TEMP 37.1; O2SAT 100
--- NOTE | 2025-03-06 08:00 | ECG_ITS ---
Test Reason : ck rhythm Blood Pressure : */* mmHG Vent. Rate : 105 BPM Atrial Rate : 105 BPM P-R Int : 126 ms QRS Dur : 94 ms QT Int : 418 ms P-R-T Axes : 74 32 20 degrees QTcB Int : 552 ms Sinus tachycardia T wave abnormality, consider anterior ischemia Prolonged QT Abnormal ECG When compared with ECG of 05-Mar-2025 08:19, Nonspecific T wave abnormality has replaced inverted T waves in Lateral leads Referred By: Sherri Novak Electronically Signed By: Pedro Chang
[2025-03-06 08:52] LABS: Mean Corpuscular HGB Conc 29.6 g/dl (31.0-36.0); Mean Corpuscular Hemoglobin 20.7 pg (27.0-33.0); Mean Corpuscular Volume 69.9 fL (80.0-98.0); Platelet Count 209 X10*3/uL (160-400); Red Blood Count 3.86 X10*6/uL (4.60-5.80); Red Cell Distribution Width 24.6 % (11.0-16.0); White Blood Count 7.4 X10*3/uL (4.8-10.8)
[2025-03-06 09:12] LABS: Alanine Aminotransferase 52 U/L (0-40); Albumin Level 2.7 g/dL (3.5-5.0); Alkaline Phosphatase 175 U/L (39-117); Anion Gap 10 (12-20); Aspartate Amino Transferase 40 U/L (5-37); Bilirubin Total 0.7 mg/dL (0.0-1.0); Blood Urea Nitrogen 18 mg/dL (9-16); Calcium 7.7 mg/dL (8.4-10.2); Carbon Dioxide 19 mmol/L (22-29); Chloride 115 mmol/L (96-108); Creatinine Clr Calc Pharmacy 127.4; Estimated Glomerular Filt Rate > 60; Glucose Random 79 mg/dL (60-115); Magnesium 1.7 mg/dL (1.6-2.6); Potassium 3.5 mmol/L (3.3-5.1); Sodium 140 mmol/L (135-145); Total Protein 5.4 g/dL (6.5-8.0)
[2025-03-06] MEDS: 0.9 % Sodium Chloride Flush 3 ML SYRINGE IVFLUSH (09:58)
[2025-03-06 11:14] VITALS: BP 117/66; PULSE 100; RESP 17; TEMP 36.6; O2SAT 99
--- NOTE | 2025-03-06 13:00 | P.PNADD_ITS ---
Subjective Subjective Date of Service: 03/06/25 Reason For Visit: AMS, fever Interim History: Patient seen in follow up Appearing weak, slightly diaphoretic, sleeping Yesterday (03/05) methadone dose decreased to 60mg secondary to prolonged QTc (540) Today repeat EKG QTc 552, Mg 1.7, K 3.5 Review of Systems Acute medical concerns: Yes Diagnostics Vital Signs (24Hr): Vital Signs - 24 hr 03/05/25 15:40 03/05/25 19:30 03/06/25 03:26 Temperature 98.6 F 99.5 F 98.8 F Pulse Rate 91 93 94 Respiratory Rate 16 18 18 Blood Pressure 109/62 121/63 115/65 Pulse Oximetry 96 95 96 Oxygen Delivery Method Room Air Room Air Room Air 03/06/25 07:03 03/06/25 11:14 Temperature 98.7 F 98 F Pulse Rate 99 100 Respiratory Rate 18 17 Blood Pressure 133/81 117/66 Pulse Oximetry 100 99 Oxygen Delivery Method Room Air Room Air BMI result Body Mass Index 20.9 Labs 03/06/25 08:38 03/06/25 08:38 Labs: Laboratory Results - last 48 hr 03/04/25 03/04/25 03/05/25 20:55 23:40 08:02 WBC 6.0 RBC 3.49 L Hgb 7.2 L Hct 24.9 L MCV 71.3 L MCH 20.6 L MCHC 28.9 L RDW 23.6 H Plt Count 210 MPV 9.8 Absolute Nucleated RBC 0.020 H Nucleated RBC % (auto) 0.3 H PT 17.7 H D INR 1.5 H Sodium 141 Potassium 3.3 Chloride 118 H Carbon Dioxide 16 L Anion Gap 10 L BUN 18 H Creatinine 0.72 Estim Creat Clear Calc 130.6 Estimated GFR > 60 Random Glucose 106 Calcium 7.6 L Magnesium 1.7 Iron 19 L TIBC 286 % Saturation 7 L Unsat Iron Binding 267 Total Bilirubin 0.8 AST 46 H ALT 67 H Alkaline Phosphatase 138 H Total Protein 5.5 L Albumin 2.9 L Stool Occult Blood NEGATIVE Stl C. cayetanensis PCR Not Detected Stool Rotavirus A PCR Not Detected Stl Adenov F PCR Not Detected Stool Astrovirus (PCR) Not Detected Stool Campylobacter PCR Not Detected Stool Cryptosporidium PCR Not Detected Stl Sh Tox Pr E STEC PCR Not Detected Stool E coli O157 PCR Not applicable Stl Enterotoxigenic E PCR Not Detected Stool EPEC (PCR) Not Detected Stool EAEC (PCR) Not Detected Stl E. histolytica PCR Not Detected Stool Giardia Lamblia PCR Not Detected Stl P. shigelloides PCR Not Detected Stool Salmonella PCR Not Detected Stool Sapovirus (PCR) Not Detected Stl Shigella/EIEC PCR Not Detected St Y.enterocolitica PCR Not Detected Stool Vibrio (PCR) Not Detected Stl Vibrio cholerae PCR Not Detected Stl Norovirus GI/GII PCR Not Detected Random Vancomycin 21.8 H C. difficile Tox B Gene NEGATIVE 03/05/25 03/06/25 20:57 08:38 WBC 7.4 RBC 3.86 L Hgb 8.0 L Hct 27.0 L MCV 69.9 L MCH 20.7 L MCHC 29.6 L RDW 24.6 H Plt Count 209 MPV 9.0 L Absolute Nucleated RBC 0.000 Nucleated RBC % (auto) 0.0 PT INR Sodium 140 Potassium 3.5 Chloride 115 H Carbon Dioxide 19 L Anion Gap 10 L BUN 18 H Creatinine 0.75 Estim Creat Clear Calc 127.4 Estimated GFR > 60 Random Glucose 79 Calcium 7.7 L Magnesium 1.7 Iron TIBC % Saturation Unsat Iron Binding Total Bilirubin 0.7 AST 40 H ALT 52 H Alkaline Phosphatase 175 H Total Protein 5.4 L Albumin 2.7 L Stool Occult Blood Stl C. cayetanensis PCR Stool Rotavirus A PCR Stl Adenov F 40/41 PCR Stool Astrovirus (PCR) Stool Campylobacter PCR Stool Cryptosporidium PCR Stl Sh Tox Pr E STEC PCR Stool E coli O157 PCR Stl Enterotoxigenic E PCR Stool EPEC (PCR) Stool EAEC (PCR) Stl E. histolytica PCR Stool Giardia Lamblia PCR Stl P. shigelloides PCR Stool Salmonella PCR Stool Sapovirus (PCR) Stl Shigella/EIEC PCR St Y.enterocolitica PCR Stool Vibrio (PCR) Stl Vibrio cholerae PCR Stl Norovirus GI/GII PCR Random Vancomycin 14.8 L C. difficile Tox B Gene Medications Medications Current Medications Acetaminophen (Acetaminophen 325 Mg Tablet) 650 mg PO Q6H PRN PRN Reason: Pain, Mild 1-3,fever,headache Albuterol/Ipratropium (Albuterol/Iprat 2.5/0.5mg 3 Ml Ampul.Neb) 3 ml INHALE Q4H PRN PRN Reason: Shortness of Breath/Wheezing Bacitracin (Bacitracin Oint 14 Gm Tube) 1 appl TOPICAL DAILY [facility]; Protocol Last Admin: 03/05/25 08:50 Dose: 1 appl Budesonide (Budesonide 0.5 Mg/2 Ml Ampul.Neb) 0.5 mg INHALE RBID [facility] Last Admin: 03/06/25 07:40 Dose: Not Given Calcium Carbonate (Calcium Carbonate 750 Mg Tab.Chew) 750 mg PO Q4H PRN PRN Reason: Heartburn Ceftriaxone Sodium (Ceftriaxone Sodium 2 Gm Vial) 2 gm IVPUSH Q24H [facility] Last Admin: 03/05/25 23:10 Dose: 2 gm Diphenhydramine HCl (Diphenhydramine Hcl 25 Mg Capsule) 25 mg PO Q6H PRN PRN Reason: itch Ferrous Sulfate (Ferrous Sulfate 324 Mg Tablet.) 324 mg PO DAILY [facility] Last Admin: 03/06/25 09:59 Dose: Not Given Vancomycin HCl 1,000 mg/ (Sodium Chloride) 270 mls @ 270 mls/hr IV Q12H [facility] Last Infusion: 03/06/25 00:10 Dose: Infused Magnesium Hydroxide (Milk Of Magnesia 30 Ml Oral.Susp) 30 ml PO DAILY PRN PRN Reason: Constipation Melatonin (Melatonin 3 Mg Tablet) 6 mg PO BEDTIME PRN PRN Reason: Insomnia Omeprazole (Omeprazole 40 Mg Capsule.) 40 mg PO DAILY@0630 [facility] Last Admin: 03/06/25 05:52 Dose: 40 mg Ondansetron HCl (Ondansetron Hcl 4 Mg/2 Ml Vial) 4 mg IVPUSH Q8H PRN PRN Reason: Nausea and Vomiting Pharmacy Consult (Consult Rx Vancomycin Dosing) 1 each MISCELLANE DAILY [facility] Sodium Chloride (0.9 % Sodium Chloride Flush 3 Ml Syringe) 3 ml IVFLUSH QSHIFT [facility] Last Admin: 03/06/25 09:58 Dose: 3 ml Allergies Allergies Allergy/AdvReac Type Severity Reaction Status Date / Time No Known Allergies Allergy Verified 03/03/25 20:55 [No Known Allergies*] Assessment & Plan Assessment & Plan (1) Opioid use disorder, severe, dependence: Status: Acute Code(s): F11.20 - Opioid dependence, uncomplicated Assessment and Plan: * methadone on hold today secondary to prolonged QTc (552)--full agonist to address any withdrawal sx * discussed with attending Dr. Toribio * will re-eval in AM and reintroduce methadone as appropriate Total time managing care of this patient today __45__ minutes.
[2025-03-06] MEDS: vancomycin HCL 1,000 MG in 0.9 % Sodium Chloride 250 ML 270 MG IV (13:07)
[2025-03-06 15:10] VITALS: BP 122/68; PULSE 100; RESP 16; TEMP 37.2; O2SAT 94
--- NOTE | 2025-03-06 15:48 | MHC.RECOVRN ---
Met with pt in [phone]- to follow up and provide support.? Pt awake, alert, easily engages in conversation, lying in bed. Pt reports feeling good and that he is waiting for his methadone dose so he can leave. He reports that regardless of what happens over the next 1/2 hour he is leaving at 4PM even if it is against medical advise. T/W attempted to review with pt. the severity of his medical condition and he is not acknowledging this. He feels he is ok . T/W passed report along to Tami Luna NP for f/u methadone dosing or alternative treatment. Pt denies other concerns at this time.? T/w available as needed.
[2025-03-06] MEDS: oxyCODONE HCl Immed Release 15 MG TABLET PO (16:30)
--- NOTE | 2025-03-06 16:50 | P.DS_ITS ---
DS: Providers Provider Date of Service: 03/06/25 Date of admission: 03/03/25 22:32 Date of discharge: 03/06/25 Primary care physician: Magan Martini MD Consults: 03/03/25 22:55 Addiction Medicine Provider Routine Consulting Provider: Addiction Covering Reason for consultation: polysubstance use, sepsis Has provider been notified: No 03/03/25 23:48 Consult to Gastroenterology Routine Consulting Provider: Michael Escamilla Reason for consultation: GI BLeed Has provider been notified: No 03/04/25 00:17 Consult to Wound Care Routine Reason for consultation: L anthony skin wound 03/04/25 12:01 Inpt - Recovery Team Routine Comment: Reason for consultation: BH/DOMINIK eval DS: Diagnosis Discharge Diagnosis (1) Opioid use disorder, severe, dependence: Status: Acute DS: Summary Hospital Course Hospital Course: 4-year-old male with past medical history endocarditis with tricuspid valve repair 2019 [facility] secondary to IV drug abuse, current IV drug abuse with heroin/cocaine and possible fentanyl, bacteremia, DVT/PE, untreated hepatitis-C, polysubstance abuse disorder on methadone, cirrhosis of the liver was brought in by ambulance when found in in a car feeling tremendous weakness, stiffness and patient expressed that he may be going through withdrawal after using IV heroin intravenously. Patient was previously in the emergency department and was discharged the morning of 03/03/2025. Patient had received his methadone dose which was confirmed through pharmacy and mass pat of 115 mg. Per patient's mother who was at patient's bedside, stated that patient has not been able to stop using IV drugs and when using after being discharged from the emergency department. Patient presents with evidence of bacteremia noting fever of 103.4, lactic acid 2.5. No obvious leukocytosis or bandemia noted on differential. Patient received IV fluid in the emergency department and vital signs are currently stable, blood pressure 101/65 heart rate 95 and temp now down to 99 after Tylenol. Blood cultures were drawn and patient was started on vancomycin and ceftriaxone for possible endocarditis as a source with noted left border wooshing murmur heard on examination. Patient also has an open wound on the left anthony which he was seen for in the emergency department.Patient has not been compliant with his Eliquis. Dopplers have been ordered. Unable to continue anticoagulation due to noted hemoglobin of 6.1 and hematocrit of 20.6. No obvious report of blood in the stool. Stool for occult pending patient is receiving 2 units of PRBCs. Seen in consultation by GI who felt no indication for EGD at this time. Hemoglobin remained stable. Methadone was held for prolonged QTC. Blood cultures were done upon arrival and remained negative throughout the hospitalization. Patient's methadone was held the day of discharge secondary to continued prolonged QTC. Seen by addiction Medicine and offered oxycodone 50 mg q.i.d.. Patient adamant about leaving... Signed out AMA despite warnings. Discussed with ID. We will send 6 weeks of linezolid b.i.d. in hopes patient will take this therapy Time Attestation Discharge Coordination Time (in mins): 35 Quality: Safe Use of Opioids Does Pt have an Active Cancer Diagnosis on the Problem List?: No Quality: Stroke Does the patient have a stroke diagnosis?: No Physical Exam Vital Signs: Vital Signs: Last Vital Signs Temp 98.9 F 03/06/25 15:10 Pulse 100 03/06/25 15:10 Resp 16 03/06/25 15:10 BP 122/68 03/06/25 15:10 Pulse Ox 94 03/06/25 15:10 O2 Del Method Room Air 03/06/25 15:10 O2 Flow Rate 2 03/04/25 04:55 BMI result Body Mass Index 20.9 DS: Data Data Completed and Pending Completed studies during hospitalization [Text1]: Procedures Detoxification Services for Substance Abuse Treatment (11/18/21) Insertion of Endotracheal Airway into Trachea, Via Natural or Artificial Opening (03/03/23) Insertion of Infusion Device into Left Basilic Vein, Percutaneous Approach (03/16/23) Insertion of Infusion Device into Superior Vena Cava, Percutaneous Approach (03/03/23) Introduction of Vasopressor into Central Vein, Percutaneous Approach (03/03/23) Respiratory Ventilation, Greater than 96 Consecutive Hours (03/03/23) Ultrasonography of Superior Vena Cava, Guidance (03/03/23) Labs on day of discharge: Laboratory Results - last 24 hr 03/05/25 03/06/25 20:57 08:38 WBC 7.4 RBC 3.86 L Hgb 8.0 L Hct 27.0 L MCV 69.9 L MCH 20.7 L MCHC 29.6 L RDW 24.6 H Plt Count 209 MPV 9.0 L Absolute Nucleated RBC 0.000 Nucleated RBC % (auto) 0.0 Sodium 140 Potassium 3.5 Chloride 115 H Carbon Dioxide 19 L Anion Gap 10 L BUN 18 H Creatinine 0.75 Estim Creat Clear Calc 127.4 Estimated GFR > 60 Random Glucose 79 Calcium 7.7 L Magnesium 1.7 Total Bilirubin 0.7 AST 40 H ALT 52 H Alkaline Phosphatase 175 H Total Protein 5.4 L Albumin 2.7 L Random Vancomycin 14.8 L Preliminary micro results at discharge 03/03/25 22:26 Blood Culture - Preliminary Blood - Venous No growth after 48 hours. 03/03/25 22:15 Blood Culture - Preliminary Blood - Venous No growth after 48 hours. Discharge Plan Discharge Patient Disposition: Left Against Medical Advice Discharge Diagnosis: Opiate withdrawal Referrals: Magan Martini MD [Primary Care Provider] - 1 Week Discharge Medications: New linezolid 600 mg tablet 600 mg PO BID Qty: 42 0RF Continued methadone [Methadone Intensol] 10 mg/mL Concentrate 115 mg PO DAILY ProAir RespiClick 90 mcg/actuation aerosol powdr breath activated 2 inh INHALATION Q6H PRN (Reason: wheezing) Eliquis 5 mg tablet 5 mg PO BID 30 Days Qty: 60 0RF magnesium oxide 400 mg magnesium Tablet 400 mg PO BID Discharge Orders: Discharge Order (Routine); Ordered 03/06/25 Ordered By: Shaggy Toribio Print Language: Japanese Care Plan Goals: AMA Health Concerns: AMA Plan of Treatment: AMA Assessment: And february
--- NOTE | 2025-03-06 18:03 | PC.NURSE ---
pt perseverating on discharge today, MD aware, he initially refused ecg, dsg change and some care. Methadone not able to be given due to QTc once he allowed the ecg. MD ordered ALDAIR. pt refused saying he was leaving and that his ride would be here at 4pm. He was heard yelling at someone on the phone to come get him. MD aware. Pt did allow dsg change just prior to walking out the door, wound looks clean and pt states it looks like it's healing. redressed as ordered. Pt given oxycodone in lieu of methadone for prevention of withdrawl. Pt encouraged to continue to persue detox and to continue antibiotics as ordered. He was educated on the seriousness of a little vegetation on my heart and encouraged to come back to ED if symptoms worsen.
[2025-03-08 18:27] LABS: HCV Log PCR 5.81 Log IU/mL (NOT DETECTED); HepC Viral Load 647000 IU/mL (NOT DETECTED)
== END 2025-03-06 16:30 | disposition left against medical advice (07) | DRG 816 ==
LOC: HO.ED 21:42 → HO.EDOVER 22:41 → HO.IMC 03-04 03:15
PROVIDERS: Family Medicine; Nurse Practitioner Family; Admitting Provider Student in an Organized Health Care Education/Training Program; Emergency Provider Internal Medicine; PCP Internal Medicine; Visit Provider Hospitalist
DX: T40.1X4A Poisoning by heroin, undetermined, initial encounter (principal); R78.81 Bacteremia; I38 Endocarditis, valve unspecified; K74.60 Unspecified cirrhosis of liver; J70.4 Drug-induced interstitial lung disorders, unspecified; B19.20 Unspecified viral hepatitis C without hepatic coma; D64.9 Anemia, unspecified; F19.10 Other psychoactive substance abuse, uncomplicated; F11.23 Opioid dependence with withdrawal; K76.0 Fatty (change of) liver, not elsewhere classified; R94.31 Abnormal electrocardiogram [ECG] [EKG]; I83.892 Varicose veins of left lower extremity with other complications; Z86.711 Personal history of pulmonary embolism; Z91.148 Patient's other noncompliance with medication regimen for other reason; Z79.01 Long term (current) use of anticoagulants; Z95.1 Presence of aortocoronary bypass graft; Z79.899 Other long term (current) drug therapy
CPT/HCPCS: 36415; 71045; 76705; 80053; 80202; 80307; 82272; 83540; 83605; 83735; 84484; 85014; 85018; 85025; 85027; 85610; 85730; 86704; 86706; 86709; 86803; 86850; 86900; 86901; 86923; 87040; 87340; 87389; 87493; 87507; 87522; 93005; 93306; 93970; 99285; J0131; J0696; J1200; J2354; J2405; J2470; J3360; J3370; J3371; J3475; P9016; P9047; S9485

== ENCOUNTER → 2025-03-03 20:56 | Outpatient (BNV) | payer MEDICAID, SELFPAY | PROVIDERS: Admitting Provider Student in an Organized Health Care Education/Training Program; Emergency Provider Internal Medicine; Visit Provider Internal Medicine Cardiovascular Disease | DX: I45.10 Unspecified right bundle-branch block (principal); R00.0 Tachycardia, unspecified | CPT/HCPCS: 93010 ==

== ENCOUNTER → 2025-03-03 20:56 | Outpatient (BNV) | payer MEDICAID, SELFPAY | PROVIDERS: Admitting Provider Student in an Organized Health Care Education/Training Program; Emergency Provider Internal Medicine; Visit Provider Radiology Neuroradiology | DX: R91.8 Other nonspecific abnormal finding of lung field (principal) | CPT/HCPCS: 71045 ==

== ENCOUNTER 2025-03-03 22:32 | Outpatient (BNV) | payer MEDICAID, SELFPAY | END 2025-03-06 08:00 | PROVIDERS: Admitting Provider Student in an Organized Health Care Education/Training Program; Emergency Provider Internal Medicine; PCP Internal Medicine; Visit Provider Internal Medicine Cardiovascular Disease | DX: R00.0 Tachycardia, unspecified (principal) | CPT/HCPCS: 93010 ==

== ENCOUNTER 2025-03-03 22:32 | Outpatient (BNV) | payer MEDICAID, SELFPAY | END 2025-03-05 08:19 | PROVIDERS: Admitting Provider Student in an Organized Health Care Education/Training Program; Emergency Provider Internal Medicine; Visit Provider Internal Medicine Cardiovascular Disease | DX: R94.31 Abnormal electrocardiogram [ECG] [EKG] (principal); Z13.6 Encounter for screening for cardiovascular disorders | CPT/HCPCS: 93010 ==

== ENCOUNTER 2025-03-03 22:32 | Outpatient (BNV) | payer MEDICAID, SELFPAY | END 2025-03-04 01:14 | PROVIDERS: Admitting Provider Student in an Organized Health Care Education/Training Program; Emergency Provider Internal Medicine; Visit Provider Radiology Neuroradiology | DX: I50.40 Unspecified combined systolic (congestive) and diastolic (congestive) heart failure (principal); K70.31 Alcoholic cirrhosis of liver with ascites | CPT/HCPCS: 76705; 93970 ==

== ENCOUNTER 2025-03-03 22:32 | Outpatient (BNV) | payer MEDICAID, SELFPAY | END 2025-03-04 07:00 | PROVIDERS: Admitting Provider Student in an Organized Health Care Education/Training Program; Emergency Provider Internal Medicine; Visit Provider Internal Medicine Cardiovascular Disease | DX: I38 Endocarditis, valve unspecified (principal); T82.857A Stenosis of other cardiac prosthetic devices, implants and grafts, initial encounter; I34.0 Nonrheumatic mitral (valve) insufficiency | CPT/HCPCS: 93306 ==

== ENCOUNTER → 2025-03-03 22:32 | Outpatient (BNV) | payer MEDICAID, SELFPAY | PROVIDERS: Admitting Provider Student in an Organized Health Care Education/Training Program; Emergency Provider Internal Medicine; Visit Provider Nurse Practitioner Family | DX: F19.10 Other psychoactive substance abuse, uncomplicated (principal); R78.81 Bacteremia | CPT/HCPCS: 99223; 99232; 99239 ==

== ENCOUNTER → 2025-03-03 22:32 | Outpatient (BNV) | payer OTHER, SELFPAY | PROVIDERS: Admitting Provider Student in an Organized Health Care Education/Training Program; Emergency Provider Internal Medicine; Visit Provider Nurse Practitioner Psychiatric/Mental Health | DX: F11.20 Opioid dependence, uncomplicated (principal) | CPT/HCPCS: 99222; 99232; 99499 ==

== ENCOUNTER 2025-04-04 11:01 | Emergency (ER) | payer MEDICAID, SELFPAY ==
--- NOTE | ~2025-04-04 | XR_ITS ---
CLINICAL HISTORY: chronic wound to anthony Left tibia/fibula, 2 views, 3 images COMPARISON: CR/SR - XR TIBIA FIBULA LT 2V - 11/03/24 10:52 EST FINDINGS: No acute fracture. No dislocation. No visible cortical disruption or periosteal reaction. Mild soft tissue edema. No visible soft tissue emphysema. IMPRESSION: Mild soft tissue edema. This document has been electronically signed by: Jose Greenberg MD on 04/04/2025 18:22:50
[2025-04-04 11:13] VITALS: BP 114/72; PULSE 107; O2SAT 95
--- NOTE | 2025-04-04 11:57 | ED_ITS ---
HPI - General Adult General Chief complaint: Extremity Problem Stated complaint: BLE PAIN/NOT TAKING ABX,ADM/HEROIN USE,METHAD CLIN Time Seen by Provider: 04/04/25 11:55 Source: patient, EMS, RN notes reviewed and old records reviewed Mode of arrival: EMS Limitations: altered mental status History of Present Illness ED Provider: Bob HPI narrative: Patient is a 34-year-old male with history of endocarditis with tricuspid valve repair 2020 [facility] secondary to IV drug abuse, current IV drug abuse with heroin/cocaine and possible fentanyl, bacteremia, DVT/PE, untreated hepatitis-C, polysubstance abuse disorder on methadone, cirrhosis of the liver presenting to the ED via EMS from methadone clinic for evaluation of left lower leg wound. Patient appears intoxicated, when asked why he is here he states that he was abducted by aliens and dropped in a cornfield. Patient sent from methadone clinic for eval of left lower leg wound per EMS. complaint: leg wound Related Data Home Medications ?Medication ?Instructions ?Recorded ?Confirmed methadone 10 mg/mL oral 115 mg PO DAILY 09/13/24 03/04/25 concentrate (Methadone Intensol) magnesium oxide 400 mg PO BID 10/10/24 03/04/25 albuterol sulfate 90 mcg/actuation 2 inh inhalation Q6H PRN wheezing 02/07/25 03/04/25 breath activated powder inhaler (ProAir RespiClick) Previous Rx's ?Medication ?Instructions ?Recorded apixaban 5 mg tablet (Eliquis) 5 mg PO BID 30 days #60 tabs 02/09/25 linezolid 600 mg tablet 600 mg PO BID #42 tabs 03/06/25 Allergies Allergy/AdvReac Type Severity Reaction Status Date / Time No Known Allergies Allergy Verified 04/04/25 12:20 [No Known Allergies*] Review of Systems 2 Review of Systems: As per HPI Yes all other systems are reviewed and are negative Constitutional: Constitutional: Reports as per HPI PMFSH Past Medical History Medical History Rhabdomyolysis Anemia LUCERO (acute kidney injury) Polysubstance abuse Opioid use disorder Opioid use disorder, severe, dependence Substance abuse MSSA bacteremia Bacteremia Bacteremia Right heart failure Steatosis, liver Tricuspid valve stenosis Anasarca HCV (hepatitis C virus) Endocarditis Pulmonary embolism Surgical History History of tricuspid valve replacement with bioprosthetic valve Social History Social History Household Members: Unknown / Unable to assess Household Members Other:: long term Housing: Unknown / Unable to assess Do you presently have visiting nurse or other home services: No Unable to assess alcohol history related to: Unknown Alcohol intake: never Patient Tobacco Use Status: Tobacco use Unknown Tobacco use type: Cigarette Cigarette Packs Per Day: 0.5 Cigarettes Per Day: 10.0 Years Smoked: 10 Second Hand Smoke Exposure: No Substance Use Type: Crack/Cocaine, Heroin and IV Drugs Advance Directives: Yes Advance Directives on File: Yes Advance Directives Date on File: 04/16/21 service: No Current occupational status: unemployed Physical Exam ED Vital Signs: Vital Signs - 24 hr 04/04/25 12:17 04/04/25 16:17 Temperature 97.9 F Pulse Rate 84 Respiratory Rate 14 16 Blood Pressure 104/76 Pulse Oximetry 98 Oxygen Delivery Method Room Air BMI result Body Mass Index 26.4 Vital signs have been reviewed and appear to be correct. Blood pressure normal. Heart rate normal. Respiratory rate normal. Temperature normal. Oxygen saturation normal. Const General: cooperative, no acute distress, ill appearing chronically, intoxicated appearing and poor hygiene Nutritional Appearance: average body habitus Limitations: altered mental status [facility] Head: Yes normocephalic and Yes atraumatic Ears: external ears normal General nose exam: Normal external nose present Face and sinus: Yes face symmetric Mouth: oropharynx normal and moist mucous membranes Throat: Yes uvula midline Eyes Pupils: Equal, round and reactive pupils present Neck Neck: Yes normal visual inspection and Yes supple Resp Effort & Inspection: normal respiratory effort and able to speak in complete sentences Auscultation: clear to auscultation bilaterally Cardio Rate: regular rate Rhythm: regular rhythm Heart sounds: S1 normal heart sound present and S2 normal heart sound present GI Palpation (GI): Soft to palpation and nontender Auscultation: normoactive bowel sounds General: Yes no CVA tenderness Back/Spine/Pelvis Back: no CVA tenderness Skin General skin exam: elasticity normal and turgor normal Neuro General: moves all extremities, no focal motor deficits and CN's II-XI intact bilaterally Cranial nerves: Yes Equal, round and reactive pupils present Cognition (Neuro): normal cognition Extrem Other: General: Yes full ROM, Yes no pedal edema and Yes no calf tenderness Left lower extremity: lower leg (chronic wound with granulation tissue base, see photo) and foot Details: vascular exam Details: dorsalis pedis pulse present, posterior tibial pulse present and normal capillary refill Psych Mental Status: mental status grossly normal Affect: normal affect Thought process: Normal thought process present Course Reevaluation(s) Reevaluation #1: Patient now more awake and alert, oriented x 3, remains drowsy, denies chest pain, palpitations, dyspnea, recent fevers. States he is agreeable to x-ray, declining EKG. Time: 17:15 Reevaluation #2: I Nicolasa Stover PA-C have accepted care Of the patient and signed out pending sobriety and x-ray x-ray tib-fib:FINDINGS: No acute fracture. No dislocation. No visible cortical disruption or periosteal reaction. Mild soft tissue edema. No visible soft tissue emphysema. IMPRESSION: Mild soft tissue edema. Medications Administered Discontinued Medications Generic Name Dose Route Start Last Admin Trade Name Freq PRN Reason Stop Dose Admin Potassium Chloride 40 meq 04/04/25 17:28 04/04/25 18:30 Potassium Chloride Packet 20 Meq Packet PO 04/04/25 17:29 40 meq ONCE ONE Administration Medical Decision Making Medical Decision Making MDM Narrative: Patient is a 34-year-old male with history of endocarditis with tricuspid valve repair 2020 [facility] secondary to IV drug abuse, current IV drug abuse with heroin/cocaine and possible fentanyl, bacteremia, DVT/PE, untreated hepatitis-C, polysubstance abuse disorder on methadone, cirrhosis of the liver presenting to the ED via EMS from methadone clinic for evaluation of left lower leg wound. On exam patient is awake, A+Ox3, VS WNL, afebrile, normal neurological exam without focal deficits, physical exam findings as above. Given reported symptoms and physical exam findings, initial differential includes but is not limited to cellulitis, osteomyelitis. Less likely endocarditis as patient denies chest pain, is afebrile. Wound appears to be healing well, no surrounding erythema or swelling, no purulent drainage. No lymphangitis. Labs notable for no leukocytosis, anemia improved from prior visit, slight hypokalemia, PO potassium ordered, elevated CRP. Patient signed out to AMARILYS Gutierrez pending x-ray results. Differential Diagnosis Differential Diagnoses: The differential diagnosis associated with the presentation includes As per [facility] Admission/Observation Consideration of admission/observation: Escalation of care including admission/observation considered Patient would have been admitted to the hospital had their work up had any findings where hospital admission was appropriate and their clinical presentation warranted hospital admission. Lab Data [facility] Lab Attestation statement: I reviewed the patient's lab results. as per [facility] 04/04/25 16:32 04/04/25 16:32 Labs: Lab Results 04/04/25 Range/Units 16:32 WBC 8.1 (4.8-10.8) X10*3/uL RBC 4.31 L (4.60-5.80) X10*6/uL Hgb 8.6 L (14.0-18.0) g/dl Hct 28.8 L (42.0-52.0) % MCV 66.8 L (80.0-98.0) fL MCH 20.0 L (27.0-33.0) pg MCHC 29.9 L (31.0-36.0) g/dl RDW 22.5 H (11.0-16.0) % Plt Count 352 D (160-400) X10*3/uL MPV 8.7 L (9.4-12.4) fL Immature Gran % (Auto) Cancelled Neut % (Auto) Cancelled Lymph % (Auto) Cancelled [place] % (Auto) Cancelled Eos % (Auto) Cancelled Baso % (Auto) Cancelled Lymph # (Auto) Cancelled [place] # (Auto) Cancelled Eos # (Auto) Cancelled Baso # (Auto) Cancelled Abs Immat Gran (auto) Cancelled Absolute Neuts (auto) Cancelled Absolute Nucleated RBC 0.000 (0.0-0.012) X10*3/uL Nucleated RBC % (auto) 0.0 (0.0-0.2) /100WBC Neutrophils % (Manual) 74 H (45-73) % Lymphocytes % (Manual) 20 (20-40) % Atypical Lymphs % (Man) 1 (0-6) % Monocytes % (Manual) 3 (2-11) % Eosinophils % (Manual) 1 (0-4) % Basophils % (Manual) 1 (0-2) % Abs Neuts (Manual) 6.0 (2.0-8.3) X10*3/uL Lymphocytes # (Manual) 1.6 (1.2-4.9) X10*3/uL Atyp Lymphs # (Manual) 0.1 x10*3/uL Monocytes # (Manual) 0.2 (0.1-1.2) X10*3/uL Eosinophils # (Manual) 0.1 (0.0-0.4) X10*3/uL Basophils # (Manual) 0.1 (0.0-0.2) X10*3/uL Smudge Cells PRESENT Toxic Vacuolation PRESENT Platelet Estimate NORMAL (NORMAL) Plt Morphology Comment NORMAL RBC Morphology NOTED Tear Drop Cells 1+ (0-2) /OIF Ovalocytes 1+ (5-14) /OIF [place] Cells 3+ (>5) /OIF Acanthocytes (Spur) 1+ (0-2) /OIF Schistocytes 1+ (0-2) /OIF ESR 4 (0-15) MM/HR PT 21.5 H D (10.9-12.4) SEC INR 1.9 H (0.9-1.1) Sodium 140 (135-145) mmol/L Potassium 3.0 L (3.3-5.1) mmol/L Chloride 111 H (96-108) mmol/L Carbon Dioxide 22 (22-29) mmol/L Anion Gap 10 L (12-20) BUN 13 (9-16) mg/dL Creatinine 0.86 (0.5-1.4) mg/dL Estim Creat Clear Calc 91.5 Estimated GFR > 60 Random Glucose 105 (60-115) mg/dL Lactic Acid 1.1 (0.5-2.0) mmol/L Calcium 8.0 L (8.4-10.2) mg/dL Total Bilirubin 1.3 H (0.0-1.0) mg/dL AST 31 (5-37) U/L ALT 20 (0-40) U/L Alkaline Phosphatase 169 H (39-117) U/L Troponin I High Sens 3.7 (<3.5-35.0) ng/L C-Reactive Protein 2.20 H (< or = 0.50) mg/dL Total Protein 6.0 L (6.5-8.0) g/dL Albumin 2.8 L (3.5-5.0) g/dL External Record Review External record reviewed: Inpatient record, Office record and Outpatient record Discharge Plan Discharge Clinical Impression: Wound of left leg Qualifiers: Encounter type: initial encounter Qualified Code(s): S81.802A - Unspecified open wound, left lower leg, initial encounter Patient Disposition: Home, Self-Care Additional Instructions: All of your screening labs were normal, there was no abnormality of the x-ray of the leg, it is not acutely infected, this is a healing wound. Continue to follow up with your healthcare providers. Prescriptions: No Action methadone [Methadone Intensol] 10 mg/mL Concentrate 115 mg PO DAILY ProAir RespiClick 90 mcg/actuation aerosol powdr breath activated 2 inh INHALATION Q6H PRN (Reason: wheezing) Eliquis 5 mg tablet 5 mg PO BID 30 Days Qty: 60 0RF linezolid 600 mg tablet 600 mg PO BID Qty: 42 0RF magnesium oxide 400 mg magnesium Tablet 400 mg PO BID Print Language: Gibraltarian
[2025-04-04 12:17] VITALS: RESP 14; BMI 26.4
--- NOTE | 2025-04-04 12:21 | PC.NURSE ---
tool repairer Pt changed over by security on arrival and belongings placed in [place] on the floor (4 bags) Contraband has been removed. Pt flailing around on stretcher intermittently, pants and underwear placed on pt to ensure privacy
--- NOTE | 2025-04-04 13:32 | PC.NURSE ---
Patient has been refusing labs & vitals to ED staff, but agreed to labs when speaking with GENEVA Rojas. Patient reports that he is in the ED because aliens picked him up and brought [place] a [place], then the ambulance people brought him to the ED. Patient is restless making random noises, had 9 needles, 4 bags, and 1 crack pipe confiscated upon arrival by ED security. Admits to smoking rocks .
--- OUTSIDE RECORDS SUMMARY | 2025-04-04 14:31 | XMS_ITS | Encounter Summary ---
Author Organization [facility] Address [address] [place] [address] Care Team Providers Care Runner Out Name Role Phone Nirali Lott Primary Care Provider [phone] Alba So NP Primary Care Provider [phone] Reason for Visit * Reason Onset Date Comments Hospital Follow-up 04/05/2024 Encounter Details Date Type Department Care Team ([facility] st Contact Info) Description 04/05/2024 Telephone [facility] [address], [place] [phone] Nirali Lott FNP [address] [place] [address] Hospital Follow-up Social History Tobacco Use Types [...] [facility] Date of admission: 03/30 Discharge date: 04/01 Diagnosed: Chest Pain documented in this encounter Plan of Treatment Not on file documented as of this encounter Visit Diagnoses Not on filedocumented in this encounter Additional Health Concerns Assessment Noted Time PHQ-9 Depression Total Score: 0 06/03/20 23 10:05 AM EDT documented as of this encounter Care Teams Runner Out Relationship Specialty Start Date End Date Nirali Lott FNP [address] [place] [address] PCP - General Family Medicine 07/09/23 04/13/24 Alba So NP [address] [place] [address] PCP - General Family Medicine 04/14/24 documented as of this encounter
--- NOTE | 2025-04-04 16:00 | PC.NURSE ---
Patient continues to refuse all care/interventions/treatments with ED staff. Intermittently sleeping and waking, randomly yelling out asking for food. Accused this RN of taking his food, this RN did not confiscate any food from this patient, but offered a chicken sandwich from pt food fridge and crackers. Continues to refuse care. GENEVA Rojas aware.
[2025-04-04 16:17] VITALS: BP 104/76; PULSE 84; RESP 16; TEMP 36.6; O2SAT 98
[2025-04-04 16:39] LABS: Hematocrit 28.8 % (42.0-52.0); Hemoglobin 8.6 g/dl (14.0-18.0); Mean Corpuscular HGB Conc 29.9 g/dl (31.0-36.0); Mean Corpuscular Volume 66.8 fL (80.0-98.0); Mean Platelet Volume 8.7 fL (9.4-12.4); Platelet Count 352 X10*3/uL (160-400); Red Blood Count 4.31 X10*6/uL (4.60-5.80); Red Cell Distribution Width 22.5 % (11.0-16.0); White Blood Count 8.1 X10*3/uL (4.8-10.8)
--- NOTE | 2025-04-04 16:41 | MHC.EDTECH ---
Pt allowed this Tech to take vital signs and get lab work including the 1st set of blood cultues. Pt is refusing the second set of cultures and refusing a EKG. RN Aware
--- NOTE | 2025-04-04 16:42 | PC.NURSE ---
Patient finally allowed lab draw & vital signs to be obtained. GENEVA Rojas aware. Results pending.
[2025-04-04 16:45] LABS: INTERNATIONAL NORM RATIO 1.9 (0.9-1.1); Prothrombin Time 21.5 SEC (10.9-12.4)
[2025-04-04 17:01] LABS: Alanine Aminotransferase 20 U/L (0-40); Albumin Level 2.8 g/dL (3.5-5.0); Alkaline Phosphatase 169 U/L (39-117); Anion Gap 10 (12-20); Aspartate Amino Transferase 31 U/L (5-37); Atypical Lymph Absolute Manual 0.1 x10*3/uL; Atypical Lymphs Percent Manual 1 % (0-6); Basophils Abs Manual 0.1 X10*3/uL (0.0-0.2); Basophils Percent Manual 1 % (0-2); Bilirubin Total 1.3 mg/dL (0.0-1.0); Blood Urea Nitrogen 13 mg/dL (9-16); Carbon Dioxide 22 mmol/L (22-29); Chloride 111 mmol/L (96-108); Creatinine Clr Calc Pharmacy 91.5; Eosinophils Absolute Manual 0.1 X10*3/uL (0.0-0.4); Eosinophils Percent Manual 1 % (0-4); Estimated Glomerular Filt Rate > 60; Glucose Random 105 mg/dL (60-115); Lymphocytes Absolute Manual 1.6 X10*3/uL (1.2-4.9); Lymphocytes Percent Manual 20 % (20-40); Monocytes Absolute Manual 0.2 X10*3/uL (0.1-1.2); Monocytes Percent Manual 3 % (2-11); Neutrophils Percent Manual 74 % (45-73); Sodium 140 mmol/L (135-145)
[2025-04-04 17:02] LABS: Lactic Acid 1.1 mmol/L (0.5-2.0)
[2025-04-04 17:04] LABS: RBC Morphology NOTED
[2025-04-04 17:05] LABS: Acanthocytes 1+ (0-2) /OIF; Ovalocytes 1+ (5-14) /OIF
[2025-04-04 17:06] LABS: Burr Cells 3+ (>5) /OIF; Platelet Estimate NORMAL (NORMAL); Platelet Morphology Comment NORMAL; Smudge Cells PRESENT; Tear Drop Cells 1+ (0-2) /OIF; Toxic Vacuolation PRESENT
[2025-04-04 17:07] LABS: Schistocytes 1+ (0-2) /OIF
[2025-04-04 17:08] LABS: Troponin-I High Sensitivity 3.7 ng/L (<3.5-35.0)
[2025-04-04 17:25] LABS: Erythrocyte Sedimentation Rate 4 MM/HR (0-15)
[2025-04-04] MEDS: Potassium Chloride Packet 20 MEQ PACKET 40 MEQ PO (18:30)
[2025-04-05 03:00] VITALS: RESP 16
--- NOTE | 2025-04-05 03:00 | MHC.EDTECH ---
Pt refused vital signs
[2025-04-05 06:09] VITALS: BP 145/85; PULSE 72; RESP 18; TEMP 36.7; O2SAT 95
== END 2025-04-05 06:11 | disposition home or self-care (01) ==
PROVIDERS: Registered Nurse Emergency; Emergency Provider Emergency Medicine; PCP Internal Medicine
DX: S81.802A Unspecified open wound, left lower leg, initial encounter (principal); X58.XXXA Exposure to other specified factors, initial encounter; R60.0 Localized edema; F19.10 Other psychoactive substance abuse, uncomplicated; F11.20 Opioid dependence, uncomplicated; Y93.9 Activity, unspecified; Y92.9 Unspecified place or not applicable; Y99.9 Unspecified external cause status
CPT/HCPCS: 36415; 73590; 80053; 83605; 84484; 85007; 85027; 85610; 85652; 86140; 87040; 99283

== ENCOUNTER → 2025-04-04 17:15 | Outpatient (BNV) | payer MEDICAID, SELFPAY | PROVIDERS: Emergency Provider Emergency Medicine; PCP Internal Medicine; Visit Provider Radiology Diagnostic Radiology | DX: R22.42 Localized swelling, mass and lump, left lower limb (principal) | CPT/HCPCS: 73590 ==

== ENCOUNTER 2025-04-19 11:35 | Emergency (ER) | payer MEDICAID, SELFPAY ==
[2025-04-19 11:47] VITALS: BP 118/68; BP 140/90; PULSE 110; PULSE 93; RESP 18; TEMP 36.3; O2SAT 93; O2SAT 97; BMI 22.0
--- NOTE | 2025-04-19 11:47 | ED.GENADULT ---
HPI - General Adult General Chief complaint: General Medical Stated complaint: LT LEG PAIN D/T INFECT FOR 6 MONTHS Time Seen by Provider: 04/19/25 11:47 Source: patient, EMS, RN notes reviewed and old records reviewed Mode of arrival: EMS Limitations: no limitations History of Present Illness ED Provider: Bob [facility] narrative: Patient is a 34-year-old male with history of endocarditis with tricuspid valve repair [facility] secondary to IV drug abuse, current IV drug abuse with heroin/cocaine and possible fentanyl, bacteremia, DVT/PE, untreated hepatitis-C, polysubstance abuse disorder on methadone, cirrhosis of the liver presenting to the ED for evaluation of chronic left leg wound. Bystanders called 911 as patient was found in a building that he does not reside in yelling out. When police arrived, they recommended evaluation in the emergency department for chronic left lower leg wound. Patient was seen in the emergency department on 04/04 for same complaint, was discharged home without antibiotics as he did not have evidence of acute infection and this is a chronic healing wound. complaint: Left leg wound Related Data Home Medications ?Medication ?Instructions ?Recorded ?Confirmed methadone 10 mg/mL oral 115 mg PO DAILY 09/13/24 03/04/25 concentrate (Methadone Intensol) magnesium oxide 400 mg PO BID 10/10/24 03/04/25 albuterol sulfate 90 mcg/actuation 2 inh inhalation Q6H PRN wheezing 02/07/25 03/04/25 breath activated powder inhaler (ProAir RespiClick) Previous Rx's ?Medication ?Instructions ?Recorded apixaban 5 mg tablet (Eliquis) 5 mg PO BID 30 days #60 tabs 02/09/25 linezolid 600 mg tablet 600 mg PO BID #42 tabs 03/06/25 Allergies Allergy/AdvReac Type Severity Reaction Status Date / Time No Known Allergies (No Known Allergy Verified 04/19/25 11:58 Allergies*) Review of Systems Review of Systems: Yes all other systems are reviewed and are negative Constitutional: Constitutional: Reports as per [facility] Past Medical History Medical History Rhabdomyolysis Anemia LUCERO (acute kidney injury) Polysubstance abuse Opioid use disorder Opioid use disorder, severe, dependence Substance abuse MSSA bacteremia Bacteremia Bacteremia Right heart failure Steatosis, liver Tricuspid valve stenosis Anasarca HCV (hepatitis C virus) Endocarditis Pulmonary embolism Surgical History History of tricuspid valve replacement with bioprosthetic valve Social History Social History Household Members: Unknown / Unable to assess Household Members Other:: detention Housing: Unknown / Unable to assess Do you presently have visiting nurse or other home services: No Unable to assess alcohol history related to: Unknown Alcohol intake: never Patient Tobacco Use Status: Tobacco use Unknown Tobacco use type: Cigarette Cigarette Packs Per Day: 0.5 Cigarettes Per Day: 10.0 Years Smoked: 10 Second Hand Smoke Exposure: No Substance Use Type: Crack/Cocaine, Heroin and IV Drugs Advance Directives Date on File: 04/16/21 service: No Current occupational status: unemployed Physical Exam ED Vital Signs: Vital Signs - 24 hr 04/19/25 11:47 Temperature 97.4 F Pulse Rate 93 Respiratory Rate 18 Blood Pressure 118/68 Pulse Oximetry 93 Oxygen Delivery Method Room Air BMI result Body Mass Index 22.0 Vital signs have been reviewed and appear to be correct. Blood pressure normal. Heart rate normal. Respiratory rate normal. Temperature normal. Oxygen saturation normal. Const General: cooperative, healthy appearing and no acute distress Orientation/consciousness: oriented to person, oriented to place, oriented to time and patient oriented x3 Limitations: no limitations HENMT Head: Yes normocephalic and Yes atraumatic Ears: external ears normal General nose exam: Normal external nose present Face and sinus: Yes face symmetric Mouth: oropharynx normal and moist mucous membranes Throat: Yes uvula midline Eyes Pupils: Equal, round and reactive pupils present Neck Neck: Yes normal visual inspection and Yes supple Resp Effort & Inspection: normal respiratory effort and able to speak in complete sentences Auscultation: clear to auscultation bilaterally Cardio Rate: regular rate Rhythm: regular rhythm Heart sounds: S1 normal heart sound present and S2 normal heart sound present GI Palpation (GI): Soft to palpation and nontender Auscultation: normoactive bowel sounds General: Yes no CVA tenderness Back/Spine/Pelvis Back: no CVA tenderness Skin General skin exam: elasticity normal and turgor normal Neuro General: oriented to person, oriented to place, oriented to time, patient oriented x3, gait normal, tone normal, moves all extremities, no focal motor deficits and CN's II-XI intact bilaterally Cranial nerves: Yes Equal, round and reactive pupils present Cognition (Neuro): normal cognition Extrem Other: Chronic, well healing wound to left anthony, see photo General: Yes full ROM, Yes no pedal edema and Yes no calf tenderness Psych Mental Status: mental status grossly normal Affect: normal affect Thought process: Normal thought process present Medical Decision Making Medical Decision Making MDM Narrative: Patient is a 34-year-old male with history of endocarditis with tricuspid valve repair [facility] secondary to IV drug abuse, current IV drug abuse with heroin/cocaine and possible fentanyl, bacteremia, DVT/PE, untreated hepatitis-C, polysubstance abuse disorder on methadone, cirrhosis of the liver presenting to the ED for evaluation of chronic left leg wound. On exam patient is awake, A+Ox3, VS WNL, afebrile, normal neurological exam without focal deficits, physical exam findings as above. Given reported symptoms and physical exam findings, initial differential includes but is not limited to chronic wound, cellulitis. Unlikely osteomyelitis as x-ray from 04/04 does not show evidence of this and wound appears to have continued healing since that visit. Patient requesting discharge prior to labs being resulted. I am comfortable with this as wound appears to be healing appropriately and does not show evidence of acute infection. Return precautions discussed. Advised patient to follow up with PCP. Patient verbalized understanding of and agreement with plan. Differential Diagnosis Differential Diagnoses: The differential diagnosis associated with the presentation includes as per [facility] Admission/Observation Consideration of admission/observation: Escalation of care including admission/observation considered Patient would have been admitted to the hospital had their work up had any findings where hospital admission was appropriate and their clinical presentation warranted hospital admission. Lab Data [facility] Lab Attestation statement: I reviewed the patient's lab results. as per [facility] 04/19/25 12:27 04/19/25 12:27 Labs: Lab Results 04/19/25 Range/Units 12:27 WBC 7.4 (4.8-10.8) X10*3/uL RBC 4.25 L (4.60-5.80) X10*6/uL Hgb 8.2 L (14.0-18.0) g/dl Hct 27.9 L (42.0-52.0) % MCV 65.6 L (80.0-98.0) fL MCH 19.3 L (27.0-33.0) pg MCHC 29.4 L (31.0-36.0) g/dl RDW 22.4 H (11.0-16.0) % Plt Count 286 (160-400) X10*3/uL MPV 8.9 L (9.4-12.4) fL Immature Gran % (Auto) 0.7 H (0.0-0.4) % Neut % (Auto) 68.8 (45-73) % Lymph % (Auto) 18.7 L (20-40) % [place] % (Auto) 8.3 (2-11) % Eos % (Auto) 3.1 (0-4) % Baso % (Auto) 0.4 (0-2) % Lymph # (Auto) 1.4 (1.2-4.9) X10*3/uL [place] # (Auto) 0.6 (0.1-1.2) X10*3/uL Eos # (Auto) 0.2 (0.0-0.4) X10*3/uL Baso # (Auto) 0.0 (0.0-0.2) X10*3/uL Abs Immat Gran (auto) 0.05 H (0.00-0.03) X10*3/uL Absolute Neuts (auto) 5.1 (2.0-8.3) x10*3/uL Absolute Nucleated RBC 0.000 (0.0-0.012) X10*3/uL Nucleated RBC % (auto) 0.0 (0.0-0.2) /100WBC External Record Review External record reviewed: Inpatient record, Office record and Outpatient record Discharge Plan Discharge Clinical Impression: Wound of left leg Qualifiers: Encounter type: subsequent encounter Qualified Code(s): S81.802D - Unspecified open wound, left lower leg, subsequent encounter Patient Disposition: Home, Self-Care Instructions: Chronic Wounds (ED) Additional Instructions: You were evaluated in the emergency department today for a chronic wound to your left lower leg. The wound appears to be healing well and there are no signs of infection. You requested to be discharged prior to the results of your labs. If there are any lab abnormalities, you will be contacted. Follow-up with your primary care provider. Return to the emergency department with any new redness, swelling, thick yellow drainage, fever, redness streaking up your leg or any other new or concerning symptoms. Prescriptions: No Action methadone [Methadone Intensol] 10 mg/mL Concentrate 115 mg PO DAILY ProAir RespiClick 90 mcg/actuation aerosol powdr breath activated 2 inh INHALATION Q6H PRN (Reason: wheezing) Eliquis 5 mg tablet 5 mg PO BID 30 Days Qty: 60 0RF linezolid 600 mg tablet 600 mg PO BID Qty: 42 0RF magnesium oxide 400 mg magnesium Tablet 400 mg PO BID Print Language: Welsh
[2025-04-19 12:36] LABS: MANUAL DIFF FLAG NO
[2025-04-19 12:40] LABS: Hematocrit 27.9 % (42.0-52.0); Hemoglobin 8.2 g/dl (14.0-18.0); Imm Gran Abs Auto 0.05 X10*3/uL (0.00-0.03); Imm Gran Pct Auto 0.7 % (0.0-0.4); Lymphocytes Absolute Auto 1.4 X10*3/uL (1.2-4.9); Mean Corpuscular HGB Conc 29.4 g/dl (31.0-36.0); Mean Corpuscular Hemoglobin 19.3 pg (27.0-33.0); Mean Corpuscular Volume 65.6 fL (80.0-98.0); NRBC Abs Auto 0.000 X10*3/uL (0.0-0.012); NRBC Pct Auto 0.0 /100WBC (0.0-0.2); Platelet Count 286 X10*3/uL (160-400); Red Blood Count 4.25 X10*6/uL (4.60-5.80); White Blood Count 7.4 X10*3/uL (4.8-10.8)
[2025-04-19 12:53] LABS: Alanine Aminotransferase 21 U/L (0-40); Albumin Level 3.0 g/dL (3.5-5.0); Alkaline Phosphatase 177 U/L (39-117); Anion Gap 10 (12-20); Aspartate Amino Transferase 42 U/L (5-37); Blood Urea Nitrogen 11 mg/dL (9-16); Calcium 7.9 mg/dL (8.4-10.2); Carbon Dioxide 22 mmol/L (22-29); Chloride 112 mmol/L (96-108); Creatinine Clr Calc Pharmacy 99.8; Estimated Glomerular Filt Rate > 60; Potassium 3.4 mmol/L (3.3-5.1); Sodium 141 mmol/L (135-145); Total Protein 6.4 g/dL (6.5-8.0)
[2025-04-19 13:08] VITALS: BP 121/89; PULSE 109; RESP 18; TEMP 36.7; O2SAT 94
--- NOTE | 2025-04-19 13:09 | PC.NURSE ---
Pt discharged from 17H, pt ambulated out of ED with steady gait, declined d/c paperwork.
--- OUTSIDE RECORDS SUMMARY | 2025-04-19 13:18 | XMS_ITS | Clinical Summary ---
Author Organization [facility] Address [address] [place] [address], [place] [address] Care Team Providers Care Bilingual Secretary Name Role Phone Unavailable Primary Care Provider [...] age to complete this topic [place]
--- OUTSIDE RECORDS SUMMARY | 2025-04-19 13:18 | XMS_ITS | Encounter Summary ---
Author Organization [facility] Address [address] [facility] [address] [place] [address] Care Team Providers Care Borematic Machine Operator Name Role Phone Nirali Lott Primary Care Provider [phone] Alba So NP Primary Care Provider [phone] Reason for Visit * Reason Onset Date Comments Hospital Follow-up 04/05/2024 Encounter Details Date Type Department Care Team ([facility] st Contact Info) Description 04/05/2024 Telephone [facility]ICINE [address] [place], [place] [phone] Nirali Lott FNP [address] [place] [address] Hospital Follow-up Social History Tobacco Use Types [...] from pt requesting a HDF appt. Hospital: [facility] Date of admission: 03/30 Discharge date: 04/01 Diagnosed: Chest Pain documented in this encounter Plan of Treatment Not on file documented as of this encounter Visit Diagnoses Not on filedocumented in this encounter Additional Health Concerns Assessment Noted Time PHQ-9 Depression Total Score: 0 06/03/20 23 10:05 AM EDT documented as of this encounter Care Teams Borematic Machine Operator Relationship Specialty Start Date End Date Nirali Lott FNP [address] [place] [address] PCP - General Family Medicine 07/09/23 04/13/24 Alba So NP [address] [place] [address] PCP - General Family Medicine 04/14/24 documented as of this encounter
--- OUTSIDE RECORDS SUMMARY | 2025-04-19 13:18 | XMS_ITS | Data Portability ---
Author Organization [facility] Visual Threat [facility], Main Office Address [address] [place] [address] Care Team Providers Care Game Design Instructor Name Role Phone [facility] OTHER Assessment Encounter Date Assessment Date Assessment LastModified by Organization Details LastModified Time 04/09/2023 04/09/2023 04/01/23 wbc 6.8, hgb 9.2, plt 291, na 145, k 3.5, creat 0.9 04/08/23 na 140, k 3.8, creat 0.7 t bili 1.5, alk phos 144, ast/alt 13/7 [email or web address] Not available 04/09/2023 08:41:20 Plan of Treatment [...] Address Organization Details Recorded Time Septic shock 89129423 Active 2022 Martinez Rendon MD [address], [address], [place], [address], [facility] [employer] 3 15:13:19 Infective endocarditis of tricuspid valve 142194188 Active 2022 Martinez Rendon MD [address], [address], [place], [address], [facility] [employer] 3 15:13:41 Pulmonary embolism 72626120 Active 2022 Martinez Rendon MD [address], [address], [place], [address], [facility] 3 15:13:48 Chronic hepatitis C 295052574 Active 2022 Martinez Rendon MD [address], [place], [address], [facility] 3 15:13:55 Anemia 182083720 Active 2022 Martinez Rendon MD [address], [address], [place], [address], [facility] 3 15:14:52 Cirrhosis of liver 47937049 Active 2022 Martinez Rendon MD [address], [address], [place], [address], [facility] 3 15:14:58 Congestive heart failure 56911419 Active 2022 Martinez Rendon MD [address], [address], [place], [address], [facility] 3 15:15:02 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 768716823 Active 2022 Martinez Rendon MD [address], [address], [place], [address], [facility] 3 15:15:08 Unsheltered homelessness Active 2022 Martinez Rendon MD [address], [address], [place], [address], [facility] 3 15:15:20 Tobacco user 225094514 Active 2022 Martinez Rendon MD [address], [address], [place], [address], [facility] 3 15:35:03 Primary insomnia 6332949 Active 2022 Martinez Rendon MD [address], [address], [place], [address], [facility] 3 15:34:02 Problem Notes None recorded. Medical Equipment None Reported. Allergies No known drug allergies Medications Not known to be on any medication Vitals None Recorded Social History Question Answer Notes LastModified by Organizat ion Details LastModified Time Tobacco Smoking Status Current Every Day Smoker Martinez Rendon MD [address], [address], [place], [address], 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 769951974 F19.10 maintained onmethadon e 40 mg qdwill establish with clinicSUDS counselor at facility Infective endocarditis of tricuspid valve 633152856 I33.0 see HPIhx of TV endocardit is s/p bioprosthe tic TVR complicate d by bioprosthe tic valve stenosismo nitor for sxadded to PMHpatient is followed by CT surgery and cardiology at [facility] Pulmonary embolism 45227 003 I26.99 xarelto 20 mg qdmonitor respirator y status Chronic hepatitis C 1283 19966 B18.2 untreated with resultant cirrhosis of liver with hx etohwill refer to GI Cirrhosis of liver 007 K74.69 see above Anemia 653325985 D50.8 appears due to malnutriti on and iron deficiency monitor cbciron studies prndietary consult prn Congestive heart failure 61744323 I50.22 carrying dxmaintain ed on spironolac tone 25 mg qdmonitor respirator y status and need to titrate Unsheltere d homelessness [id number] 71195 Z59.02 social worker 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 to be involvedma y be barrier [facility] added to PMH Tobacco user 527949936 Z 72.0 currently refusing nicotine patchis smoking at facilityco nsidering quitting, encouraged may start patch tomorrow [id number] Martinez Rendon MD [facility] on [address] [place] [address] 03/25/2023 15:30:14 03/30/2023 15:28:18 Primary insomnia 3421399 F51.01 see HPIwill starttraza done 25 mg qhs prnmonitor for effect and need to titrate 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 067595003 F19.10 methadone 40 mg qdcurrentl y stable at baseline [id number] SCOTTIE Chen [facility] on [address] [place] [address] 03/30/2023 08:21:03 04/01/2023 10:41:27 Septic shock 29372164 R65.21 nafcillin 2 gm q 4 hrs til 04/19/23moni tor cbcf/u with ID s 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 320532150 F19.10 methadone 40 mg qdf/u with methadone clinicSUDs counseling at facility Infective endocarditis of tricuspid valve 483169279 I33.0 hx of TV endocardit is s/p bioprosthe tic TVR complicate d by bioprosthe tic valve stenosispt notes sob intermitte ntly since TVR a couple of years agowaiting for CXR resultsfol lowed by CT surgery and cardiology at [facility] Pulmonary embolism 01055 003 I26.99 xarelto 20 mg qdmonitor resp status, bleeding risk Chronic hepatitis C 1283 01350 B18.2 untreated with resultant cirrhosis of liver with hx etohreferr ed to GI Cirrhosis of liver 007 K74.69 see above Anemia 282186971 D50.8 appears due to malnutriti on and iron deficiency monitor cbciron studies prndietary consult prn Congestive heart failure 50812255 I50.22 compensate dspironola ctone 25 mg qdmonitor respirator y status and need to titrate Unsheltere d homelessness [id number] 06005 Z59.02 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 rrier [facility] Primary insomnia 2516126 F51.01 increase trazodone to 50 mg qhsmonitor for effect [id number] Martinez Rendon MD [facility] on [address] [place] [address] 03/31/2023 16:07:11 04/03/2023 16:00:10 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 938861608 F19.10 see HPImethado ne 40 mg qd currentlyp atient can f/u at methadone clinic for dose adjustment Septic shock 13501202 R6 5.21 nafcillin 2 gm q 4 to complete courserepe at cbc in am Pulmonary embolism 68551 003 I26.99 xarelto 20 mg qdmonitor respirator y statuswith atypical chest pain would consider CT imaging if symptoms changeto ED for acute decompensa tion [id number] Martinez Rendon MD [facility] on [address] [place] [address] 04/03/2023 15:42:16 04/06/2023 16:19:22 Atypical chest pain 888544371 R07.89 exam reassuring question underlying neuropathi c painwill start gabapentin 100 mg tid and followmoni tor need for chest CT depending on change in presentati on Septic shock 02358909 R6 5.21 see HPI with shock and endocardit isnafcilli n 2 gm q 4 for 26 days from admitmonit or cbcupdate ID with concernswb c count reassuring 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 156202672 F19.10 methadone 40 mg qdSUDS counselor at facility Pulmonary embolism 56328 003 I26.99 xarelto 20 mg qdmonitor respirator y statuscont inuedsee above [id number] SCOTTIE Chen [facility] on [address] [place] [address] 04/06/2023 14:52:36 04/13/2023 16:26:47 Septic shock 51511501 R65.21 nafcillin 2 gm q 4 hrs til 04/19/23moni tor cbcf/u with ID s 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 712681010 F19.10 methadone 40 mg qdf/u with methadone clinicSUDs counseling at facility Infective endocarditis of tricuspid valve 497509614 I33.0 hx of TV endocardit is s/p bioprosthe tic TVR complicate d by bioprosthe tic valve stenosispt notes sob intermitte ntly since TVR a couple of years agonow somewhat worse with abd distension discussed with Dr Rendon, will get abd UL, nurse aware and will orderfollo wed by CT surgery and cardiology at [facility] Pulmonary embolism 60691 003 I26.99 xarelto 20 mg qdmonitor resp status, bleeding risk Chronic hepatitis C 1283 93591 B18.2 untreated with resultant cirrhosis of liver with hx etohreferr ed to GI Cirrhosis of liver 10125 007 K74.69 now with possible ascitesabd UL as aboveincre ase spironolac tone to 50 mg qd (was on 25 mg qd)monitor for worsening sxs Anemia 634738204 D50.8 appears due to malnutriti on and iron deficiency monitor cbciron studies prndietary consult prn Congestive heart failure 35771358 I50.22 increased sobspirono lactone 50 mg qd (as above)anoop tor respirator y status and need to titrate [id number] Martinez Rendon MD [facility] on [address] [place] [address] 04/07/2023 13:38:54 04/14/2023 09:58:52 Abdominal pain 19939086 R10.31 abd discomfort with distention ultrasound pendingCMP in ammonitor LFTs and need for GI referral Atypical chest pain 1025 58554 R07.89 see abovewill increase gabapentin to 200 mg tid and followmoni tor need for chest CT depending on change in presentati on Septic shock 33777975 R6 5.21 see HPI with shock and endocardit isnafcilli n 2 gm q 4 through 7/1monitor cbcupdate ID with concernswb c count reassuring [id number] SCOTTIE Chen [facility] on [address] [place] [address] 04/09/2023 08:34:52 04/22/2023 08:32:51 Infective endocarditis of tricuspid valve 915622374 I33.0 hx of TV endocardit is s/p bioprosthe tic TVR complicate d by bioprosthe tic valve stenosispt notes sob intermitte ntly since TVR a couple of years agowaiting for abd UL to be donefollow ed by CT surgery and cardiology at [facility] Cirrhosis of liver 91737 007 K74.69 now with possible ascitesabd UL as abovespiro nolactone 50 mg qdmonitor for worsening sxs 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 042707506 F19.10 methadone 40 mg qddiscusse d with MD and will not add narcotic in pt with hx of polysubsta nce abuse - pain appears to be chronic in naturef/u with methadone clinicSUDs counseling at facility Septic shock 83979633 R6 5.21 nafcillin 2 gm q 4 hrs til 04/19/23moni tor cbcf/u with ID s Pulmonary embolism 37299 003 I26.99 xarelto 20 mg qdmonitor resp status, bleeding risk Chronic hepatitis C 1283 94796 B18.2 untreated with resultant cirrhosis of liver with hx etohreferr ed to GI Anemia 115650446 D50.8 appears due to malnutriti on and iron deficiency monitor cbciron studies prndietary consult prn Congestive heart failure 11335377 I50.22 stable todayspiro nolactone 50 mg qd (as above)anoop tor respirator y status and need to titrate Abdominal pain 47346589 R10.31 abd discomfort with distention ultrasound pendingCMP in ammonitor LFTs again on 04/13/23 and need for GI referral Atypical chest pain 1025 92582 R07.89 see abovegabap entin 200 mg tid and followmoni tor need for chest CT depending on change in presentati on Martinez Rendon MD [facility] on [address] [place] [address] 04/13/2023 15:29:49 04/22/2023 08:58:15 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 755879949 F19.10 maintained onmethadon e 40 mg qdwill write for oxycodone 5 mg q 8 prn breakthrou gh painthis will be discontinu ed at time of dischargep atient not to leave facility with oxycodone Infective endocarditis of tricuspid valve 480894558 I33.0 see HPIhx of TV endocardit is s/p bioprosthe tic TVR complicate d by bioprosthe tic valve stenosisco mplete Ab on 04/15 with ID signing off at this time Pulmonary embolism 72841 003 I26.99 xarelto 20 mg qdmonitor respirator y statushold day prior to paracentes is and day of procedure Chronic hepatitis C 1283 99466 B18.2 untreated with resultant cirrhosis of liver with hx etoh and now significan t asciteswil l refer to GI for further workup and evalwill refer to interventi onal radiology for paracentes iss Cirrhosis of liver 007 K74.69 see above [id number] Martinez Rendon MD [facility] on [address] [place] [address] 04/15/2023 13:43:11 04/22/2023 10:39:02 Infective endocarditis of tricuspid valve 504291489 I33.0 see HPIhx of TV endocardit is s/p bioprosthe tic TVR complicate d by bioprosthe tic valve stenosisan tibiotic completeID to set time to remove picc line Pulmonary embolism 36023 003 I26.99 xarelto 20 mg qdmonitor respirator y statushold day prior to paracentes is and day of procedure 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 732267888 F19.10 maintained onmethadon e 40 mg qdoxycodon [...] for paracentes is Restlessne ss and agitation 284569663 R45.1 Patient verbally abusive and patronizin g [...] request psych eval if patient will accept [id number] SCOTTIE Chen [facility] on [address] [place] [address] 04/23/2023 12:25:55 04/29/2023 07:46:12 Infective endocarditis of tricuspid valve 700508491 I33.0 pt ok to discharge today to homeless shelterhx of TV endocardit is s/p bioprosthe tic TVR complicate d by bioprosthe tic valve stenosisco mpleted Ab on 04/15/23 with ID signing off at this timef/u with cards, pcp Pulmonary embolism 43984 003 I26.99 xarelto 20 mg qd - rx written for #30f/u with pcp Chronic hepatitis C 1283 15891 B18.2 untreated with resultant cirrhosis of liver with hx etoh and now significan t ascitesref erred to GI for further workup and evalpt refused paracentes is when he was sent out to [facility] ED 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 729335598 F19.10 pt received his last dose methadone this morningcon tinue methadone 40 mg qddisconti nue oxycodone todayf/u with methadone clinic as out pt Cirrhosis of liver 007 K74.69 see above Health Concerns Section Related Observation LastModified by Organization Detai ls LastModified Time None Recorded Concern Status LastModified by Organization Details LastModified Time None Recorded Advance Directives Directive None Recorded Payers Insurance Date Sequence Insurance Name Policy Number Policy Dailey Covered Member ID Dailey Member ID Guarantor Name 03/25/2024 1 [place]: [facility] Norberto Marquez [id number] Norberto Marquez Notes Date Note Type Note [...] requesting increase in gabapentin Martinez Rendon MD [address] [place] [address], [address], [place], [address], [place] [facility] [employer] 04/07/2023 13:48:54 04/09/2023 text/html pt seen today [...] rib and back pain. SCOTTIE Chen [address], [address], [place], [address], [facility] [employer] 04/09/2023 14:32:40 04/13/2023 text/html Patient is a [...] with c/o pain Martinez Rendon MD [address], [address], [place], [address], [employer] [facility] 04/13/2023 15:45:02 04/15/2023 text/html Patient is a [...] is homelessness which is being addressed by SAMANTHA. For ascites with known cirrhosis patient has been referred to GI to follow as out patient and to IR for theraputic paracentesis. Martinez Rendon MD [address], [address], [place], [address], [facility] 04/15/2023 14:38:05 04/23/2023 text/html pt seen today fo r discharge summary. pt is discharging to a homeless snf. he has completed his antibiotics on 04/15/23 [...] nafcillin to complete course. SCOTTIE Chen [address], [address], [place], [address], [facility] 04/23/2023 13:14:23
== END 2025-04-19 13:09 | disposition home or self-care (01) ==
LOC: HO.ED 12:51
PROVIDERS: Registered Nurse Emergency; Emergency Provider Emergency Medicine Emergency Medical Services
DX: S81.802D Unspecified open wound, left lower leg, subsequent encounter (principal); X58.XXXD Exposure to other specified factors, subsequent encounter; B19.20 Unspecified viral hepatitis C without hepatic coma; F19.10 Other psychoactive substance abuse, uncomplicated; F11.20 Opioid dependence, uncomplicated; F17.210 Nicotine dependence, cigarettes, uncomplicated
CPT/HCPCS: 36415; 80053; 85025; 85652; 86140; 99282; 99283

== ENCOUNTER 2025-05-16 01:00 | Emergency (ER) | payer MEDICAID, SELFPAY ==
[2025-05-16 01:09] VITALS: BP 119/79; BP 130/82; PULSE 87; PULSE 88; RESP 17; TEMP 36.6; O2SAT 96; O2SAT 98; BMI 21.5
--- NOTE | 2025-05-16 01:24 | ED.GENADULT ---
HPI - General Adult General Chief complaint: General Medical Stated complaint: INFECTION IN HEART Time Seen by Provider: 05/16/25 01:20 Source: patient and EMS Mode of arrival: EMS Limitations: altered mental status History of Present Illness ED Provider: Dr. Yanet Jang HPI narrative: 34-year-old male with unclear past medical history presenting with intoxication by EMS. EMS reports they are called by the police after the patient was found on the street, clearly intoxicated. Reportedly has been using ?a speed ball tonight?. Police gave the patient the option to come to the hospital or into police custody and he chose to come to the emergency department. Patient is unable to give much history secondary to his intoxication. He is very agitated, writhing around on the bed and refusing to answer questions. Related Data Home Medications ?Medication ?Instructions ?Recorded ?Confirmed methadone 10 mg/mL oral 115 mg PO DAILY 09/13/24 03/04/25 concentrate (Methadone Intensol) magnesium oxide 400 mg PO BID 10/10/24 03/04/25 albuterol sulfate 90 mcg/actuation 2 inh inhalation Q6H PRN wheezing 02/07/25 03/04/25 breath activated powder inhaler (ProAir RespiClick) Previous Rx's ?Medication ?Instructions ?Recorded apixaban 5 mg tablet (Eliquis) 5 mg PO BID 30 days #60 tabs 02/09/25 linezolid 600 mg tablet 600 mg PO BID #42 tabs 03/06/25 Allergies Allergy/AdvReac Type Severity Reaction Status Date / Time No Known Allergies (No Known Allergy Verified 05/16/25 01:19 Allergies*) Review of Systems Review of Systems: Yes Unobtainable due to mental status (Intoxication) [facility] Past Medical History Source: unable to obtain (Intoxication/altered mental status) and old records reviewed Medical History Rhabdomyolysis Anemia LUCERO (acute kidney injury) Polysubstance abuse Opioid use disorder Opioid use disorder, severe, dependence Substance abuse MSSA bacteremia Bacteremia Bacteremia Right heart failure Steatosis, liver Tricuspid valve stenosis Anasarca HCV (hepatitis C virus) Endocarditis Pulmonary embolism Surgical History S/P tricuspid valve replacement History of tricuspid valve replacement with bioprosthetic valve Social History Social History Household Members: Unknown / Unable to assess Household Members Other:: half-way Housing: Unknown / Unable to assess Do you presently have visiting nurse or other home services: No Unable to assess alcohol history related to: Unknown Alcohol intake: never Patient Tobacco Use Status: Tobacco use Unknown Tobacco use type: Cigarette Cigarette Packs Per Day: 0.5 Cigarettes Per Day: 10.0 Years Smoked: 10 Second Hand Smoke Exposure: No Substance Use Type: Crack/Cocaine, Heroin and IV Drugs Advance Directives: Yes Advance Directives on File: Yes Advance Directives Date on File: 04/16/21 Do you have a plan to hurt others: No Plan service: No Current occupational status: unemployed Physical Exam ED Exam Exam: GENERAL: Anxious, agitated, uncontrolled movements. SKIN: Normal skin color for ethnicity, warm, dry, multiple skin excoriations of various degrees of healing, no crepitus, no petechiae, no blistering. HEENT: Normocephalic, atraumatic, no stridor, posterior oropharynx nonerythematous, poor [place] dentition, dry mucous membranes, EOMI. NECK: Soft, supple, full ROM, midline structures nontender, no step-offs, no deformities, no lymphadenopathy. CHEST: Heart regular rhythm, holosystolic ejection murmur best heard at the left upper sternal border, symmetric chest rise and fall, no crepitus. PULMONARY: Clear to auscultation bilaterally, no labored breathing, no wheezes/rhales/rhonchi. ABDOMINAL: Softly distended, palpable spleen and liver, nontender, positive bowel sounds in all quadrants, caput medusa noted. : Deferred. MUSCULOSKELETAL: Normal tone, full range of motion, no deformities, no peripheral edema. NEURO: Alert and oriented to person, CN II through XII intact, equal strength and sensation bilateral upper and lower extremities, no focal neurologic deficits. PSYCHIATRIC: Anxious affect, agitated, incomprehensible speech, poor eye contact and psychomotor agitation. Vital Signs: Vital Signs - 24 hr 05/16/25 01:09 05/16/25 05:00 05/16/25 14:52 Temperature 97.9 F 97.7 F Pulse Rate 88 85 Respiratory Rate 17 12 Blood Pressure 119/79 109/66 Pulse Oximetry 96 96 Oxygen Delivery Method Room Air Room Air 05/16/25 17:35 Temperature 0 F L Pulse Rate 0 L Respiratory Rate 0 L Blood Pressure 00/00 L Pulse Oximetry 0 L Oxygen Delivery Method BMI result Body Mass Index 21.5 Course Course Course Narrative: Dr. Evans: The patient was signed out to me at change of shift. The patient has been brought to the emergency room early this morning by ambulance after apparently having been found by police after using IV drugs. He has a history of multiple ER visits related to IV drug use. He has had endocarditis in the past. I do not hear a murmur on exam today. We did labs that are unremarkable. His vital signs were stable. No fevers. He was observed for many hours until it seemed he was awake enough for discharge. He was not interested in detox. He was therefore discharged. 17:50, Medications Administered Discontinued Medications Generic Name Dose Route Start Last Admin Trade Name Freq PRN Reason Stop Dose Admin Midazolam HCl 5 mg 05/16/25 02:12 05/16/25 02:22 Midazolam Hcl 5 Mg/Ml Vial IM 05/16/25 02:13 5 mg ONCE ONE Administration Naloxone HCl 8 mg 05/16/25 17:16 05/16/25 17:29 Naloxone Hcl Nasal Take Home 4 Mg [place] NOSTRILALT 05/16/25 17:17 8 mg ONCE ONE Administration Medical Decision Making Medical Decision Making [facility] Narrative: Patient presents today with a chief complaint of altered mental status from the street by EMS. Differential diagnosis for AMS is incredibly broad and includes infection, intracranial process such as hemorrhage, stroke or mass, electrolyte abnormality, hypercarbia, hypoxia, toxic encephalopathy, among many others. At this point, clinical picture is most consistent with intoxication of some type of stimulant. Patient does admit to using a speedball. His exam is definitely consistent with crack cocaine or PCP-type drug. Patient is refusing treatment at this time though he is somewhat agitated I do not feel he is stable for discharge yet. We will continue to monitor, re-evaluate when sober. Differential Diagnosis Differential Diagnoses: The differential diagnosis associated with the presentation includes (As above) Admission/Observation Consideration of admission/observation: Escalation of care including admission/observation considered Lab Data 05/16/25 16:26 05/16/25 16:26 Labs: Lab Results 05/16/25 Range/Units 16:26 WBC 9.9 (4.8-10.8) X10*3/uL RBC 4.77 (4.60-5.80) X10*6/uL Hgb 9.2 L (14.0-18.0) g/dl Hct 31.7 L (42.0-52.0) % MCV 66.5 L (80.0-98.0) fL MCH 19.3 L (27.0-33.0) pg MCHC 29.0 L (31.0-36.0) g/dl RDW 24.0 H (11.0-16.0) % Plt Count 373 D (160-400) X10*3/uL MPV 9.3 L (9.4-12.4) fL Immature Gran % (Auto) 0.7 H (0.0-0.4) % Neut % (Auto) 73.3 H (45-73) % Lymph % (Auto) 15.0 L (20-40) % [place] % (Auto) 8.1 (2-11) % Eos % (Auto) 2.3 (0-4) % Baso % (Auto) 0.6 (0-2) % Lymph # (Auto) 1.5 (1.2-4.9) X10*3/uL [place] # (Auto) 0.8 (0.1-1.2) X10*3/uL Eos # (Auto) 0.2 (0.0-0.4) X10*3/uL Baso # (Auto) 0.1 (0.0-0.2) X10*3/uL Abs Immat Gran (auto) 0.07 H (0.00-0.03) X10*3/uL Absolute Neuts (auto) 7.3 (2.0-8.3) x10*3/uL Absolute Nucleated RBC 0.020 H (0.0-0.012) X10*3/uL Nucleated RBC % (auto) 0.2 (0.0-0.2) /100WBC Sodium 139 (135-145) mmol/L Potassium 4.0 (3.3-5.1) mmol/L Chloride 115 H (96-108) mmol/L Carbon Dioxide 18 L (22-29) mmol/L Anion Gap 10 L (12-20) BUN 16 (9-16) mg/dL Creatinine 0.71 (0.5-1.4) mg/dL Estim Creat Clear Calc 122.6 Estimated GFR > 60 Random Glucose 91 (60-115) mg/dL Calcium 7.8 L (8.4-10.2) mg/dL Total Bilirubin 1.2 H (0.0-1.0) mg/dL Direct Bilirubin 0.4 (0.0-0.5) mg/dL AST 114 H (5-37) U/L ALT 35 (0-40) U/L Alkaline Phosphatase 180 H (39-117) U/L Total Protein 6.3 L (6.5-8.0) g/dL Albumin 2.7 L (3.5-5.0) g/dL Ethyl Alcohol < 10 mg/dL Independent Historian Clinical information obtained from an independent historian. History obtained from or confirmed by: EMS External Record Review External record reviewed: Inpatient record and Prior outpatient labs Chronic Conditions Patient?s care impacted by: Other (Substance use disorder) Social Determinants Patient?s care significantly limited by Social Determinants of Health including: Inadequate housing, Alcoholism and drug addiction in family and Problems related to primary support group Discharge Plan Discharge Clinical Impression: Acute drug intoxication, Opioid use disorder, severe, dependence Patient Disposition: Home, Self-Care Instructions: Narcotic Use Disorder (ED) Additional Instructions: Opiate use disorder You were seen in our Emergency Department today for treatment of opiate use disorder. You have been given naloxone (narcan) to take home with you. This medication is used to potentially treat opiate overdose. If you decide you want to stop or cut down on how much you?re using, you can call or walk into our outpatient Addiction Treatment office: [facility] (M-F 9am-5p) [address], [address] [phone] You may have been provided with safer injection?items, please take time to take care of YOU and your health. Use new supplies whenever possible to lessen the chances of infections and other illnesses.? ?If you need more supplies, please go [facility],? [address] [place] [address] OR you can call or text to coordinate delivery of safer supplies. Please follow up with your regular doctor at the [facility]. Continue any regularly prescribed medications. If you experience any worsening symptoms you cannot control please return to the ED or call 911. Please follow up at your next appointment. Things to look out for are fevers, chest pain, shortness of breath, severe pain, dizziness, fainting or any other concerns. Prescriptions: No Action methadone [Methadone Intensol] 10 mg/mL Concentrate 115 mg PO DAILY ProAir RespiClick 90 mcg/actuation aerosol powdr breath activated 2 inh INHALATION Q6H PRN (Reason: wheezing) Eliquis 5 mg tablet 5 mg PO BID 30 Days Qty: 60 0RF linezolid 600 mg tablet 600 mg PO BID Qty: 42 0RF magnesium oxide 400 mg magnesium Tablet 400 mg PO BID Referrals: [facility] [Provider Group] [facility] [Provider Group] Interventions: ED Discharge Assessment Last Done: 05/16/25 17:35 Discharge Date/Time: 05/16/25 17:49 Print Language: Angolan
--- NOTE | 2025-05-16 02:10 | PC.NURSE ---
PT restless, uncooperative at any attempt in care. screaming miss! doctor! but when approached pt not responding to questions, continuing to move around a significant amount and yell.
--- NOTE | 2025-05-16 02:12 | PC.NURSE ---
Per security pt belongings in decon due to uncapped sharps found on per
--- NOTE | 2025-05-16 02:27 | PC.NURSE ---
PT continuing to be restless and screaming. IM medication administered as per MAR in left vastus lateralis. Sitter at bedside as per protocol. PT unable to tolerate vitals being taken or cardiac monitoring at this, Plan of care ongoing.
--- NOTE | 2025-05-16 04:07 | PC.NURSE ---
PT resting quietly with eyes closed. Respirations even an unlabored, pt in no actue distress at this time. Plan of care ongoing
[2025-05-16 05:00] VITALS: TEMP 36.5
--- NOTE | 2025-05-16 06:29 | PC.NURSE ---
pt arousable to movement only. Extremely drowsy, and slurring words. Unable to follow commands. Provider aware
--- OUTSIDE RECORDS SUMMARY | 2025-05-16 06:35 | XMS_ITS | Clinical Summary ---
Author Organization [facility] Facility Address [address] [place] [address], [place] [id number] Care Team Providers Care Band Singer Name Role Phone Unavailable Primary Care Provider [...] 19+ 3-dose series) 2007 Influenza Vaccine (#1) 2025 Pneumococcal Vaccine: Peds ( 0 to 5 Years) and At-Risk Patients (6 to 49 Years) Aged Out No longer eligible b ased on patient's age to complete this topic [place]
--- OUTSIDE RECORDS SUMMARY | 2025-05-16 06:35 | XMS_ITS | Encounter Summary ---
Author Organization [facility] Address [address] [place] [address] Phone Care Team Providers Care Senior Qa Tester Name Role Phone Pcp, Unknown Primary Care Provider Unavailabl e Encounter Details Date Type Department Care Team (Late st Contact Info) Description 02/14/2020 Transcribe Orders [facility] Specimen Processing [address] [place] [address] Donell Villalobos, DO [address] [place] [address] [place] [address] [email or web address] Encounter for health examination of prisoner (Primary Dx) Social History Tobacco Use Types Packs/Day Years Used Date Smoking Tobacco: Never Assessed Sex and Gender Information Value Date Recorded Sex Assigned at Not on file Legal Sex Male 11:51 AM EST Gender Identity Not on file Sexual Orientation Not on file documented as of this encounter Plan of Treatment Not on file documented as of this encounter Results * (ABNORMAL) LFTs (hepatic panel) (02/15/2020 10:04 AM EDT) ALKALINE PHOSPHATASE 138(H) 39 - 117 U/L [facility] TOTAL BILIRUBIN 0.5 0.0 - 1.2 mg/dL [facility] DIRECT BILIRUBIN 0.2 0 - 0.3 mg/dL [facility] Bilirubin (Indirect) 0.3 0 - 1.5 mg/dL [facility] AST 114(H) 0 - 37 U/L [facility] ALT 235(H) 0 - 40 U/L [facility] TOTAL PROTEIN 6.8 6.5 - 8.0 g/dL [facility] ALBUMIN 4.1 3.9 - 4.8 g/dL [facility] GLOBULIN 2.7 1 - 4.8 g/dL [facility] A/G Ratio 1.52 1.00 - 4.80 RATIO [facility] Blood 02/15/2020 10:0 4 AM EDT 02/15/2020 11:32 AM EDT us Donell A Bigda DO LAB BLOOD ORDERABLES Final Resul t Performing Organization Address City/State/[facility] Co de Phone Number [facility] [address] [place] [address] documented in this encounter Visit Diagnoses Diagnosis Encounter for health examination of prisoner- Primary documented in this encounter Additional Health Concerns Infection Onset Date Last Indicated Resolved Time CoV-Risk 03/27/2023 03/27/2023 04/07/2023 1:22 AM EDT documented as of this encounter Care Teams Senior Qa Tester Relationship Specialty Start Date End Date Pcp, Unknown PCP - General 12/06/19 documented as of this encounter Additional Source Comments The information contained in this document represents components of the legal health record. It is not the complete legal health record.[facility]
--- OUTSIDE RECORDS SUMMARY | 2025-05-16 06:35 | XMS_ITS | Data Portability ---
Author Organization [facility], Main Office Address [address], [address] [place] [address] Care Team Providers Care Cadd Manager Name Role Phone [facility] OTHER Assessment Encounter Date Assessment Date Assessment LastModified by Organization Details LastModified Time 04/09/2023 04/09/2023 04/01/23 wbc 6.8, hgb 9.2, plt 291, na 145, k 3.5, creat 0.9 04/08/23 na 140, k 3.8, creat 0.7 t bili 1.5, alk phos 144, ast/alt 13/7 [email or web address] Not available 04/09/2023 08:41:20 Plan of Treatment [...] Address Organization Details Recorded Time Septic shock [id number] Active 2022 Martinez Rendon MD [address] [facility] [address], [address], [place], [address], [facility] [employer] 3 15:13:19 Infective endocarditis of tricuspid valve 813931006 Active 2022 Martinez Rendon MD [address] [facility] [address], [address], [place], [address], [facility] [employer] 3 15:13:41 Pulmonary embolism 08217325 Active 2022 Martinez Rendon MD [address] [facility] [address], [address], [place], [address], [facility] 3 15:13:48 Chronic hepatitis C 245785779 Active 2022 Martinez Rendon MD [address], [address], [place], [address], [facility] 3 15:13:55 Anemia 862265833 Active 2022 Martinez Rendon MD [address], [address], [place], [address], [facility] 3 15:14:52 Cirrhosis of liver 64721969 Active 2022 Martinez Rendon MD [address], [address], [place], [address], [facility] 3 15:14:58 Congestive heart failure 48805978 Active 2022 Martinez Rendon MD [address], [address], [place], [address], [facility] 3 15:15:02 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 130853735 Active 2022 Martinez Rendon MD [address], [address], [place], [address], [facility] 3 15:15:08 Unsheltered homelessness Active 2022 Martinez Rendon MD [address], [address], [place], [address], [facility] 3 15:15:20 Tobacco user 542910186 Active 2022 Martinez Rendon MD [address], [address], [place], [address], [facility] 3 15:35:03 Primary insomnia 2819701 Active 2022 Martinez Rnedon MD [address], [address], [place], [address], [facility] 3 15:34:02 Problem Notes None recorded. Medical Equipment None Reported. Allergies No known drug allergies Medications Not known to be on any medication Vitals None Recorded Social History Question Answer Notes LastModified by Organizat ion Details LastModified Time Tobacco Smoking Status Current Every Day Smoker Martinez Rendon MD [address] [facility] [facility], [address], [place], [address], [facility] 03/24/2023 15:12:49 How Much Tobacco [...] SNOMED-CT Code Diagnosis ICD10 Code Diagnosis Note [id number] Martinez Rendon MD [facility] on [address] [place] [address] 03/24/2023 15:03:52 03/30/2023 15:17:15 Septic shock 11372482 R65.21 see HPInow onnafcilli n 2 gm q 4 for 26 daysadd probiotic bidmonitor cbcupdate ID with concerns 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 096982677 F19.10 maintained onmethadon e 40 mg qdwill establish with clinicSUDS counselor at facility Infective endocarditis of tricuspid valve 622955561 I33.0 see HPIhx of TV endocardit is s/p bioprosthe tic TVR complicate d by bioprosthe tic valve stenosismo nitor for sxadded to PMHpatient is followed by CT surgery and cardiology at [facility] Pulmonary embolism 88622 003 I26.99 xarelto 20 mg qdmonitor respirator y status Chronic hepatitis C 1283 59968 B18.2 untreated with resultant cirrhosis of liver with hx etohwill refer to GI Cirrhosis of liver 007 K74.69 see above Anemia 277021868 D50.8 appears due to malnutriti on and iron deficiency monitor cbciron studies prndietary consult prn Congestive heart failure 93495875 I50.22 carrying dxmaintain ed on spironolac tone 25 mg qdmonitor respirator y status and need to titrate Unsheltere d homelessness [id number] 27974 Z59.02 social contact worker to be involvedma y [facility] added to PMH Tobacco user 094793725 Z 72.0 currently refusing nicotine patchis smoking at facilityco nsidering quitting, encouraged may start patch tomorrow [id number] Martinez Rendon MD [facility] on [address] [place] [address] 03/25/2023 15:30:14 03/30/2023 15:28:18 Primary insomnia 3961938 F51.01 see HPIwill starttraza done 25 mg qhs prnmonitor for effect and need to titrate 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 529066396 F19.10 methadone 40 mg qdcurrentl y stable at baseline [id number] SCOTTIE Chen [facility] on [address] [place] [address] 03/30/2023 08:21:03 04/01/2023 10:41:27 Septic shock 05169306 R65.21 nafcillin 2 gm q 4 hrs til 04/19/23moni tor cbcf/u with ID s 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 191277984 F19.10 methadone 40 mg qdf/u with methadone clinicSUDs counseling at facility Infective endocarditis of tricuspid valve 766588440 I33.0 hx of TV endocardit is s/p bioprosthe tic TVR complicate d by bioprosthe tic valve stenosispt notes sob intermitte ntly since TVR a couple of years agowaiting for CXR resultsfol lowed by CT surgery and cardiology at [facility] Pulmonary embolism 11537 003 I26.99 xarelto 20 mg qdmonitor resp status, bleeding risk Chronic hepatitis C 1283 04095 B18.2 untreated with resultant cirrhosis of liver with hx etohreferr ed to GI Cirrhosis of liver 007 K74.69 see above Anemia 995727058 D50.8 appears due to malnutriti on and iron deficiency monitor cbciron studies prndietary consult prn Congestive heart failure 22263529 I50.22 compensate dspironola ctone 25 mg qdmonitor respirator y status and need to titrate Unsheltere d homelessness [id number] 23302 Z59.02 social contact worker [facility]ba [facility]rier [facility] Primary insomnia 1285821 F51.01 increase trazodone to 50 mg qhsmonitor for effect [id number] Martinez Rendon MD [facility] on [address] [place] [address] 03/31/2023 16:07:11 04/03/2023 16:00:10 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 226312204 F19.10 see HPImethado ne 40 mg qd currentlyp atient can f/u at methadone clinic for dose adjustment Septic shock 97982490 R6 5.21 nafcillin 2 gm q 4 to complete courserepe at cbc in am Pulmonary embolism 12478 003 I26.99 xarelto 20 mg qdmonitor respirator y statuswith atypical chest pain would consider CT imaging if symptoms changeto ED for acute decompensa tion [id number] Martinez Rendon MD [facility] on [address] [place] [address] 04/03/2023 15:42:16 04/06/2023 16:19:22 Atypical chest pain 742411987 R07.89 exam reassuring question underlying neuropathi c painwill start gabapentin 100 mg tid and followmoni tor need for chest CT depending on change in presentati on Septic shock 88874675 R6 5.21 see HPI with shock and endocardit isnafcilli n 2 gm q 4 for 26 days from admitmonit or cbcupdate ID with concernswb c count reassuring 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 432434510 F19.10 methadone 40 mg qdSUDS counselor at facility Pulmonary embolism 42316 003 I26.99 xarelto 20 mg qdmonitor respirator y statuscont inuedsee above [id number] SCOTTIE Chen [facility] on [address] [place] [address] 04/06/2023 14:52:36 04/13/2023 16:26:47 Septic shock 88846875 R65.21 nafcillin 2 gm q 4 hrs til 04/19/23moni tor cbcf/u with ID s 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 126034664 F19.10 methadone 40 mg qdf/u with methadone clinicSUDs counseling at facility Infective endocarditis of tricuspid valve 726592411 I33.0 hx of TV endocardit is s/p bioprosthe tic TVR complicate d by bioprosthe tic valve stenosispt notes sob intermitte ntly since TVR a couple of years agonow somewhat worse with abd distension discussed with Dr Rendon, will get abd UL, nurse aware and will orderfollo wed by CT surgery and cardiology at [facility] Pulmonary embolism 25343 003 I26.99 xarelto 20 mg qdmonitor resp status, bleeding risk Chronic hepatitis C 1283 83774 B18.2 untreated with resultant cirrhosis of liver with hx etohreferr ed to GI Cirrhosis of liver 64721 007 K74.69 now with possible ascitesabd UL as aboveincre ase spironolac tone to 50 mg qd (was on 25 mg qd)monitor for worsening sxs Anemia 834342162 D50.8 appears due to malnutriti on and iron deficiency monitor cbciron studies prndietary consult prn Congestive heart failure 87248054 I50.22 increased sobspirono lactone 50 mg qd (as above)anoop tor respirator y status and need to titrate [id number] Martinez Rendon MD [facility] on [address] [place] [address] 04/07/2023 13:38:54 04/14/2023 09:58:52 Abdominal pain 98489946 R10.31 abd discomfort with distention ultrasound pendingCMP in ammonitor LFTs and need for GI referral Atypical chest pain 1025 83718 R07.89 see abovewill increase gabapentin to 200 mg tid and followmoni tor need for chest CT depending on change in presentati on Septic shock 84044478 R6 5.21 see HPI with shock and endocardit isnafcilli n 2 gm q 4 through 7/1monitor cbcupdate ID with concernswb c count reassuring [id number] SCOTTIE Chen [facility] on [address] [place] [address] 04/09/2023 08:34:52 04/22/2023 08:32:51 Infective endocarditis of tricuspid valve 042122463 I33.0 hx of TV endocardit is s/p bioprosthe tic TVR complicate d by bioprosthe tic valve stenosispt notes sob intermitte ntly since TVR a couple of years agowaiting for abd UL to be donefollow ed by CT surgery and cardiology at [facility] Cirrhosis of liver 40686 007 K74.69 now with possible ascitesabd UL as abovespiro nolactone 50 mg qdmonitor for worsening sxs 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 128146644 F19.10 methadone 40 mg qddiscusse d with MD and will not add narcotic in pt with hx of polysubsta nce abuse - pain appears to be chronic in naturef/u with methadone clinicSUDs counseling at facility Septic shock 67217169 R6 5.21 nafcillin 2 gm q 4 hrs til 04/19/23moni tor cbcf/u with ID s Pulmonary embolism 17052 003 I26.99 xarelto 20 mg qdmonitor resp status, bleeding risk Chronic hepatitis C 1283 81842 B18.2 untreated with resultant cirrhosis of liver with hx etohreferr ed to GI Anemia 161180600 D50.8 appears due to malnutriti on and iron deficiency monitor cbciron studies prndietary consult prn Congestive heart failure 34782212 I50.22 stable todayspiro nolactone 50 mg qd (as above)anoop tor respirator y status and need to titrate Abdominal pain 76863942 R10.31 abd discomfort with distention ultrasound pendingCMP in ammonitor LFTs again on 04/13/23 and need for GI referral Atypical chest pain 1025 72255 R07.89 see abovegabap entin 200 mg tid and followmoni tor need for chest CT depending on change in presentati on Martinez Rendon MD [facility] on [address] [place] [address] 04/13/2023 15:29:49 04/22/2023 08:58:15 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 471959728 F19.10 maintained onmethadon e 40 mg qdwill write for oxycodone 5 mg q 8 prn breakthrou gh painthis will be discontinu ed at time of dischargep atient not to leave facility with oxycodone Infective endocarditis of tricuspid valve 992007414 I33.0 see HPIhx of TV endocardit is s/p bioprosthe tic TVR complicate d by bioprosthe tic valve stenosisco mplete Ab on 04/15 with ID signing off at this time Pulmonary embolism 70905 003 I26.99 xarelto 20 mg qdmonitor respirator y statushold day prior to paracentes is and day of procedure Chronic hepatitis C 1283 26034 B18.2 untreated with resultant cirrhosis of liver with hx etoh and now significan t asciteswil l refer to GI for further workup and evalwill refer to interventi onal radiology for paracentes iss Cirrhosis of liver 007 K74.69 see above [id number] Martinez Rendon MD [facility] on [address] [place] [address] 04/15/2023 13:43:11 04/22/2023 10:39:02 Infective endocarditis of tricuspid valve 681879558 I33.0 see HPIhx of TV endocardit is s/p bioprosthe tic TVR complicate d by bioprosthe tic valve stenosisan tibiotic completeID to set time to remove picc line Pulmonary embolism 94575 003 I26.99 xarelto 20 mg qdmonitor respirator y statushold day prior to paracentes is and day of procedure 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 255261966 F19.10 maintained onmethadon e 40 mg qdoxycodon [...] for paracentes is Restlessne ss and agitation 111275013 R45.1 Patient verbally abusive and patronizin g [...] request psych eval if patient will accept [id number] SCOTTIE Chen [facility] on [address] [place] [address] 04/23/2023 12:25:55 04/29/2023 07:46:12 Infective endocarditis of tricuspid valve 711152655 I33.0 pt ok to discharge today to homeless shelterhx of TV endocardit is s/p bioprosthe tic TVR complicate d by bioprosthe tic valve stenosisco mpleted Ab on 04/15/23 with ID signing off at this timef/u with cards, pcp Pulmonary embolism 78707 003 I26.99 xarelto 20 mg qd - rx written for #30f/u with pcp Chronic hepatitis C 1283 10596 B18.2 untreated with resultant cirrhosis of liver with hx etoh and now significan t ascitesref erred to GI for further workup and evalpt refused paracentes is when he was sent out to [facility] 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 666270407 F19.10 pt received his last dose methadone [...] Dailey Member ID Guarantor Name 03/25/2024 1 MEDICAID-[place]: [facility] Norberto Marquez [id number] Norberto Marquez
--- NOTE | 2025-05-16 10:14 | PC.NURSE ---
Addendum entered by Elayne Cordova RN 05/16/25 11:12: Pt requires frequent reminders to chew food and swallow before falling asleep. ED provider aware Pt still with significant lethargy at this time. Will continue to monitor. Original Note: Care of Pt assumed at change of shift. Pt rests quietly with eyes closed until this time. Pt rests to use the bathroom--this RN accompanies Pt to bathroom. Gait noted to be semi steady. Pt requests food--sandwiches and crackers provided along with gingerale. Pt offers no complaints at this time. Dispo pending.
--- NOTE | 2025-05-16 14:07 | ECG_ITS ---
Test Reason : CP/OD Blood Pressure : */* mmHG Vent. Rate : 86 BPM Atrial Rate : 86 BPM P-R Int : 128 ms QRS Dur : 102 ms QT Int : 472 ms P-R-T Axes : -3 83 -55 degrees QTcB Int : 564 ms Normal sinus rhythm Incomplete right bundle branch block Possible Inferior infarct , age undetermined T wave abnormality, consider anterolateral ischemia Prolonged QT Abnormal ECG When compared with ECG of 06-Mar-2025 12:06, Non-specific change in ST segment in Anterior leads Inverted T waves have replaced nonspecific T wave abnormality in Lateral leads Referred By: Felton Evans Electronically Signed By: ANGÉLICA VILLANUEVA MD
--- NOTE | 2025-05-16 14:22 | MHC.EDTECH ---
pt is refusing blood work/ ekg at this time, [address]
[2025-05-16 14:52] VITALS: BP 109/66; PULSE 85; RESP 12; O2SAT 96
[2025-05-16 16:29] LABS: MANUAL DIFF FLAG NO
[2025-05-16 16:39] LABS: Hematocrit 31.7 % (42.0-52.0); Hemoglobin 9.2 g/dl (14.0-18.0); Imm Gran Abs Auto 0.07 X10*3/uL (0.00-0.03); Imm Gran Pct Auto 0.7 % (0.0-0.4); Lymphocytes Absolute Auto 1.5 X10*3/uL (1.2-4.9); Mean Corpuscular HGB Conc 29.0 g/dl (31.0-36.0); Mean Corpuscular Hemoglobin 19.3 pg (27.0-33.0); Mean Corpuscular Volume 66.5 fL (80.0-98.0); NRBC Abs Auto 0.020 X10*3/uL (0.0-0.012); NRBC Pct Auto 0.2 /100WBC (0.0-0.2); Platelet Count 373 X10*3/uL (160-400); Red Blood Count 4.77 X10*6/uL (4.60-5.80); White Blood Count 9.9 X10*3/uL (4.8-10.8)
[2025-05-16 16:58] LABS: Alanine Aminotransferase 35 U/L (0-40); Albumin Level 2.7 g/dL (3.5-5.0); Alkaline Phosphatase 180 U/L (39-117); Anion Gap 10 (12-20); Aspartate Amino Transferase 114 U/L (5-37); Blood Urea Nitrogen 16 mg/dL (9-16); Calcium 7.8 mg/dL (8.4-10.2); Carbon Dioxide 18 mmol/L (22-29); Chloride 115 mmol/L (96-108); Creatinine Clr Calc Pharmacy 122.6; Estimated Glomerular Filt Rate > 60; Potassium 4.0 mmol/L (3.3-5.1); Sodium 139 mmol/L (135-145); Total Protein 6.3 g/dL (6.5-8.0)
[2025-05-16] MEDS: Naloxone HCl Nasal TAKE HOME 4 MG SPRAY 8 MG NOSTRILALT (17:29)
[2025-05-16 17:35] VITALS: BP 00/00; PULSE 0; RESP 0; TEMP -17.7; TEMP 0; O2SAT 0
== END 2025-05-16 17:49 | disposition home or self-care (01) ==
PROVIDERS: Emergency Provider Emergency Medicine
DX: F19.120 Other psychoactive substance abuse with intoxication, uncomplicated (principal); R45.1 Restlessness and agitation; F11.20 Opioid dependence, uncomplicated; F17.210 Nicotine dependence, cigarettes, uncomplicated
CPT/HCPCS: 36415; 80048; 80076; 80307; 85025; 93005; 96372; 99284; J2250

== ENCOUNTER → 2025-05-16 14:07 | Outpatient (BNV) | payer MEDICAID, SELFPAY | PROVIDERS: Emergency Provider Emergency Medicine; Visit Provider Internal Medicine Cardiovascular Disease | DX: I45.10 Unspecified right bundle-branch block (principal) | CPT/HCPCS: 93010 ==

== ENCOUNTER 2025-06-04 14:16 | Emergency (ER) | payer MEDICAID, SELFPAY ==
--- NOTE | ~2025-06-04 | US_ITS ---
EXAMINATION: US LOWER EXTREMITY VEINS LIMITED FOLLOW UP LEFT HISTORY: LLE pain COMPARISON: Comparison is made with the prior examination dated 11/03/2024. TECHNIQUE: Duplex and color Doppler sonographic examination of the deep venous system of the left lower extremity was performed. FINDINGS: The common femoral, superficial femoral, and popliteal veins are patent demonstrating normal compressibility, spontaneous flow, and augmentation. There is a normal color and spectral Doppler waveform appearance of the visualized deep venous system above the knee. The posterior tibial and peroneal veins are patent. US/US venous duplex LE LT IMPRESSION: No evidence of acute DVT in the left lower extremity. Electronically signed by: Earl Miller MD 06/05/2025 08:17 AM EDT
[2025-06-04 14:35] VITALS: BP 136/66; PULSE 121; O2SAT 95; BMI 25.1
--- NOTE | 2025-06-04 14:45 | ED_ITS ---
HPI - Overdose General Chief Complaint: Overdose Stated Complaint: OVERDOSE Time Seen by Provider: 06/04/25 14:32 Source: patient and EMS Mode of arrival: EMS Limitations: altered mental status (Appears to be under the influence of drugs) History of Present Illness ED Provider: AMARILYS Farris HPI Narrative: 34-year-old male history of bacteremia, IV drug abuse, hepatitis-C, LUCERO, bleeding varices, heart failure, pulmonary embolism, endocarditis, anasarca presents to the emergency department status post overdose feeling tired, thirsty and reporting diffuse left leg pain rates it 04/27 also reporting pleuritic chest pain he reports when he takes a deep breath in it hurts. Patient reports he has been walking around lately. He is not interested in detox. Not suicidal or homicidal. Denies fevers, chills, headache, vision changes, dizziness, weakness, falls or traumas. Related Data Home Medications ?Medication ?Instructions ?Recorded ?Confirmed methadone 10 mg/mL oral 115 mg PO DAILY 09/13/24 concentrate (Methadone Intensol) magnesium oxide 400 mg PO BID 10/10/2403/04 albuterol sulfate 90 mcg/actuation 2 inh inhalation Q6 H PRN wheezing 02/07/25 03/04/25 breath activated powder inhaler (ProAir RespiClick) Previous Rx's ?Medication ?Instructions ?Recorded apixaban 5 mg tablet (Eliquis) 5 mg PO BID 30 days #60 tabs 02/09/25 linezolid 600 mg tablet 600 mg PO BID #42 tabs 03/06 Allergies Allergy/AdvReac Type Severity Reaction Status Date / Time No Known Allergies (No Known Allergy Verified 06/04/25 14:43 Allergies*) [facility] Past Medical History Medical History Rhabdomyolysis Anemia LUCERO (acute kidney injury) Polysubstance abuse Opioid use disorder Opioid use disorder, severe, dependence Substance abuse MSSA bacteremia Bacteremia Bacteremia Right heart failure Steatosis, liver Tricuspid valve stenosis Anasarca HCV (hepatitis C virus) Endocarditis Pulmonary embolism Surgical History S/P tricuspid valve replacement History of tricuspid valve replacement with bioprosthetic valve Social History Social History (Reviewed 05/16/25 @ 07:29 by KENTON Mcmahon Household Members: Unknown / Unable to assess Household Members Other:: skilled nursing Housing: Unknown / Unable to assess Do you presently have visiting nurse or other home services: No Unable to assess alcohol history related to: Refusing to respond Alcohol intake: never Patient Tobacco Use Status: Tobacco use Unknown Tobacco use type: Cigarette Cigarette Packs Per Day: 0.5 Cigarettes Per Day: 10.0 Years Smoked: 10 Smoked in Last 30 Days: No Second Hand Smoke Exposure: No Use of substances other than those prescribed or required for medical reasons: Refusing to respond Substance Use Type: Crack/Cocaine, Heroin and IV Drugs Advance Directives: Yes Advance Directives on File: Yes Advance Directives Date on File: 04/16/21 Do you have a plan to hurt others: No Plan service: No Current occupational status: unemployed Physical Exam 2 Vital Signs: Vital Signs: Last Vital Signs Temp 98.3 F 06/04/25 17:41 Pulse 99 06/04/25 17:41 Resp 18 06/04/25 17:41 BP 99/62 06/04/25 17:41 Pulse Ox 96 06/04/25 17:41 O2 Del Method Room Air 06/04/25 17:41 BMI result Body Mass Index 25.1 Course Reevaluation(s) Reevaluation #1: Patient's CBC with leukocytosis and microcytic anemia. Neutrophil predominance. I am covering him with Zosyn and vanco. He refused OBS. Refused rectal temperature as well. Chemistry with elevated BUN and creatinine, patient receiving IV fluids elevated CPK and alk-phos. Total bilirubin also elevated 2.3. For this reason will add a scan of the abdomen. Patient's random glucose 59, which improved shortly after. UA with trace leukocytosis I suspect this is contaminant. No UTI. Patient's urine positive for opiates, methadone, fentanyl, cocaine negative for ethanol. Venous duplex left lower extremity pending. CTA chest pending, CT abdomen pending Trop still not resulted Time: 18:33 Reevaluation #2: Report given to Cory who will reach out to the hospitalist when imaging results however hospitalist aware of this case. He will need hospital admission. Time: 18:41 Reevaluation #3: 8:38 PM 06/04/2025 (Elaine PANDA): Radiology attempted to take the patient for CT chest abdomen and pelvis, patient is now alert and oriented, refusing any imaging and demanding discharge. The patient was advised he was suffering from multiple abnormal lab findings, and could potentially from missing a diagnosis of PE, endocarditis, or DVT. Patient became verbally belligerent with this provider and refused any additional workup, demanding to be given his clothes and discharged against medical advice. Given the patient's alertness and statement of understanding regarding his potential for decreased quality of life, permanent disfigurement or disability, and , patient will be signed out against medical advice. Medications Administered Discontinued Medications Generic Name Dose Route Start Last Admin Trade Name Freq PRN Reason Stop Dose Admin Glucose 15 gm 06/04/25 17:12 06/04/25 17:20 Glucose Gel 15 Gm Gel..Gram. PO 06/04/25 17:13 15 gm ONCE ONE Administration Piperacillin Sod/Tazobactam 50 mls @ 100 mls/hr 06/04/25 14:59 06/04/25 17:20 Sod 3.375 gm/ Sodium Chloride IV 06/04/25 15:28 Infused ONCE ONE Infusion Vancomycin HCl 2,000 mg in 500 mls @ 250 mls/hr 06/04/25 16:00 06/04/25 19:46 Vancomycin/Ns IV 06/04/25 17:59 Infused ONCE ONE Infusion Sodium Chloride 2,245.29 mls @ 2,245.29 mls/hr 06/04/25 18:31 06/04/25 18:40 Ns 30 ml/kg infuse over 1 hr (2245.29 ml) 06/04/25 19:30 2,245.29 mls/hr IV Administration .Q1H STA Medical Decision Making Medical Decision Making [facility] Narrative: 1449 34-year-old male presents with drug overdose reporting he is thirsty, tired, diffuse body aches and pains, chest pain with inspiration. Also reporting left lower extremity pain throughout. Physical exam patient appears to be under the influence of drugs, dozing off during my examination. Left lower extremity negative Homans sign 2+ dorsalis pedis, anterior tibialis and posterior tibialis pulses equal bilateral. Normal distal sensation. No footdrop. No skin changes or cellulitis. Regular rate and rhythm. Lungs clear. Due to patient's history I am concerned for DVT and possible PE he has a history of PE and is supposed to be on anticoagulants however he does not take them he is non med compliant. Concerns for DVT to left lower extremity. Unlikely arterial occlusion. Will rule out metabolic derangements and electrolyte abnormalities. Low suspicion for ACS however will rule out. He does have a history of cardiomyopathy. Plan at this time labs, imaging, urine Differential Diagnosis Differential Diagnoses: The differential diagnosis associated with the presentation includes (Due to patient's history I am concerned for DVT and possible PE he has a history of PE and is supposed to be on anticoagulants however he does not take them he is non med compliant. Concerns for DVT to left lower extremity. Unlikely arterial occlusion. Will rule out metabolic derangements and sabi) Admission/Observation Consideration of admission/observation: Escalation of care including admission/observation considered Lab Data MDM Lab Attestation statement: I reviewed the patient's lab results. 06/04/25 16:39 06/04/25 16:39 Labs: Lab Results 06/04/25 06/04/25 06/04/25 Range/Units 15:15 16:39 17:34 WBC 11.7 H (4.8-10.8) X10*3/uL RBC 3.87 L (4.60-5.80) X10*6/uL Hgb 7.9 L (14.0-18.0) g/dl Hct 26.1 L (42.0-52.0) % MCV 67.4 L (80.0-98.0) fL MCH 20.4 L (27.0-33.0) pg MCHC 30.3 L (31.0-36.0) g/dl RDW 26.1 H (11.0-16.0) % Plt Count 233 D (160-400) X10*3/uL MPV 10.1 (9.4-12.4) fL Immature Gran % (Auto) 0.7 H (0.0-0.4) % Neut % (Auto) 85.2 H (45-73) % Lymph % (Auto) 6.3 L (20-40) % [place] % (Auto) 7.3 (2-11) % Eos % (Auto) 0.2 (0-4) % Baso % (Auto) 0.3 (0-2) % Lymph # (Auto) 0.7 L (1.2-4.9) X10*3/uL [place] # (Auto) 0.9 (0.1-1.2) X10*3/uL Eos # (Auto) 0.0 (0.0-0.4) X10*3/uL Baso # (Auto) 0.0 (0.0-0.2) X10*3/uL Abs Immat Gran (auto) 0.08 H (0.00-0.03) X10*3/uL Absolute Neuts (auto) 10.0 H (2.0-8.3) x10*3/uL Absolute Nucleated RBC 0.000 (0.0-0.012) X10*3/uL Nucleated RBC % (auto) 0.0 (0.0-0.2) /100WBC D-Dimer High Sensitivty 1323 NG/ML Sodium 134 L (135-145) mmol/L Potassium 3.7 (3.3-5.1) mmol/L Chloride 103 (96-108) mmol/L Carbon Dioxide 19 L (22-29) mmol/L Anion Gap 16 (12-20) BUN 37 H (9-16) mg/dL Creatinine 1.06 (0.5-1.4) mg/dL Estim Creat Clear Calc 93.2 Estimated GFR > 60 POC Glucose 125 H (60-115) mg/dL Random Glucose 59 L* (60-115) mg/dL Lactic Acid 1.4 (0.5-2.0) mmol/L Calcium 8.7 D (8.4-10.2) mg/dL Magnesium 2.2 (1.6-2.6) mg/dL Total Bilirubin 2.3 H (0.0-1.0) mg/dL AST 58 H (5-37) U/L ALT 25 (0-40) U/L Alkaline Phosphatase 214 H (39-117) U/L Total Creatine Kinase 504 H (38-174) U/L Troponin I High Sens 7.2 D (<3.5-35.0) ng/L Total Protein 7.6 (6.5-8.0) g/dL Albumin 3.6 (3.5-5.0) g/dL Urine Color Urine Appearance Urine pH (5.0-9.0) Ur Specific [place] (1.005-1.025) Urine Protein (Neg-Trace) mg/dL Urine Glucose (UA) (Negative) mg/dL Urine Ketones (Negative) mg/dL Urine Blood (Negative) Urine Nitrite (Negative) Ur Leukocyte Esterase (Negative) Urine RBC (0-2) /HPF Urine WBC (0-5) /HPF Ur Squamous Epith Cells (0-2) /HPF Urine Bacteria (None Seen) Hyaline Casts (0-2) /LPF Urine Opiates Screen (Not Detect) Ur Buprenorphine Scrn (Not Detect) ng/mL Ur Oxycodone Screen (Not Detect) ng/mL Urine Methadone Screen (Not Detect) ng/mL Urine Fentanyl Screen (Not Detect) Ur Barbiturates Screen (Not Detect) Ur Phencyclidine Scrn (Not Detect) Ur Amphetamines Screen (Not Detect) U Benzodiazepines Scrn (Not Detect) Urine Cocaine Screen (Not Detect) U Marijuana (THC) Screen (Not Detect) Ethyl Alcohol < 10 mg/dL 06/04/25 06/04/25 Range/Units 18:15 19:02 WBC (4.8-10.8) X10*3/uL RBC (4.60-5.80) X10*6/uL Hgb (14.0-18.0) g/dl Hct (42.0-52.0) % MCV (80.0-98.0) fL MCH (27.0-33.0) pg MCHC (31.0-36.0) g/dl RDW (11.0-16.0) % Plt Count (160-400) X10*3/uL MPV (9.4-12.4) fL Immature Gran % (Auto) (0.0-0.4) % Neut % (Auto) (45-73) % Lymph % (Auto) (20-40) % [place] % (Auto) (2-11) % Eos % (Auto) (0-4) % Baso % (Auto) (0-2) % Lymph # (Auto) (1.2-4.9) X10*3/uL [place] # (Auto) (0.1-1.2) X10*3/uL Eos # (Auto) (0.0-0.4) X10*3/uL Baso # (Auto) (0.0-0.2) X10*3/uL Abs Immat Gran (auto) (0.00-0.03) X10*3/uL Absolute Neuts (auto) (2.0-8.3) x10*3/uL Absolute Nucleated RBC (0.0-0.012) X10*3/uL Nucleated RBC % (auto) (0.0-0.2) /100WBC D-Dimer High Sensitivty NG/ML Sodium (135-145) mmol/L Potassium (3.3-5.1) mmol/L Chloride (96-108) mmol/L Carbon Dioxide (22-29) mmol/L Anion Gap (12-20) BUN (9-16) mg/dL Creatinine (0.5-1.4) mg/dL Estim Creat Clear Calc Estimated GFR POC Glucose 115 (60-115) mg/dL Random Glucose (60-115) mg/dL Lactic Acid (0.5-2.0) mmol/L Calcium (8.4-10.2) mg/dL Magnesium (1.6-2.6) mg/dL Total Bilirubin (0.0-1.0) mg/dL AST (5-37) U/L ALT (0-40) U/L Alkaline Phosphatase (39-117) U/L Total Creatine Kinase (38-174) U/L Troponin I High Sens (<3.5-35.0) ng/L Total Protein (6.5-8.0) g/dL Albumin (3.5-5.0) g/dL Urine Color Yellow Urine Appearance Clear Urine pH 6.0 (5.0-9.0) Ur Specific [place] 1.015 (1.005-1.025) Urine Protein Negative (Neg-Trace) mg/dL Urine Glucose (UA) Negative (Negative) mg/dL Urine Ketones Trace (Negative) mg/dL Urine Blood Moderate (2+) H (Negative) Urine Nitrite Negative (Negative) Ur Leukocyte Esterase Trace H (Negative) Urine RBC 11-20 H (0-2) /HPF Urine WBC 0-5 (0-5) /HPF Ur Squamous Epith Cells 0-2 (0-2) /HPF Urine Bacteria None Seen (None Seen) Hyaline Casts 0-2 (0-2) /LPF Urine Opiates Screen POSITIVE H (Not Detect) Ur Buprenorphine Scrn Not Detected (Not Detect) ng/mL Ur Oxycodone Screen Not Detected (Not Detect) ng/mL Urine Methadone Screen Positive H (Not Detect) ng/mL Urine Fentanyl Screen POSITIVE H (Not Detect) Ur Barbiturates Screen Not Detected (Not Detect) Ur Phencyclidine Scrn Not Detected (Not Detect) Ur Amphetamines Screen Not Detected (Not Detect) U Benzodiazepines Scrn Not Detected (Not Detect) Urine Cocaine Screen POSITIVE H (Not Detect) U Marijuana (THC) Screen Not Detected (Not Detect) Ethyl Alcohol mg/dL Independent Interpretation I performed an independent interpretation of an: EKG and CT Scan Radiology Impression Discussion of test interpretation with radiology: I have reviewed the radiologist's reading. Critical Care Time Critical Care Time Critical Care Time: Yes Total Critical Care Time: 45 Attestation: I attest to this time spent taking care of the patient, obtaining history, physical, reviewing labs, imaging, treatment of patients condition +/- specialist/hospitalist consult +/- procedure Discharge Plan Discharge Clinical Impression: Drug abuse, Chest pain, pleuritic, Left leg pain, Elevated bilirubin, Hypoglycemia, Anemia, LUCERO (acute kidney injury) Patient Disposition: Left Against Medical Advice Instructions: Polysubstance Use Disorder (ED) Additional Instructions: Thank you for choosing [facility]'s Emergency Department for your care today. Today you were advised that you are suffering from low blood counts, liver abnormalities, dehydration with kidney injury, polysubstance abuse disorder, and potentially a blood clot or infectious emboli of your leg and/or lungs. For these reasons we recommended additional workup with CT imaging, Ultrasound, and admission. You have chosen to sign out from our care against medical advice. You have stated your understanding that failure to treat these findings or diagnose the other diagnoses of concern could result in worsening pain, septic infection, permanent disfigurement or disability, a decreased quality of life, heart attack, stroke, and . Given your understanding of these risks we are discharging you from the ED against our medical advice. Please follow up with your primary care physician for re-evaluation, additional management of your symptoms, and continued preventative care. If you do not have a primary care physician, please call the [facility] at [phone] to establish a new primary care physician. While waiting to establish your new primary care physician, you can call our Walk-in Care Clinic at [phone] for non-emergency needs. Please understand that your decision to leave against medical advice today does not preclude you from returning to the ED for re-evaluation should you change your mind at any time. Please return to the emergency department if you develop a severe or sudden change in your symptoms, a fever over 100.4 that does not improve with Tylenol or Ibuprofen, recurrent vomiting, or any other new or worsening symptoms or concerns. Prescriptions: No Action methadone [Methadone Intensol] 10 mg/mL Concentrate 115 mg PO DAILY ProAir RespiClick 90 mcg/actuation aerosol powdr breath activated 2 inh INHALATION Q6H PRN (Reason: wheezing) Eliquis 5 mg tablet 5 mg PO BID 30 Days Qty: 60 0RF linezolid 600 mg tablet 600 mg PO BID Qty: 42 0RF magnesium oxide 400 mg magnesium Tablet 400 mg PO BID Referrals: [facility] [Primary Care Provider, Medical] Clinical Impression: LUCERO (acute kidney injury); Drug abuse; Chest pain, pleuritic; Anemia; Hypoglycemia; Left leg pain; Elevated bilirubin Stand Alone Forms: Against Medical Advice Print Language: Armenian
[2025-06-04 14:48] VITALS: BP 140/77; PULSE 121; RESP 18; TEMP 36.8; O2SAT 91
--- NOTE | 2025-06-04 14:51 | ECG_ITS ---
Test Reason : SEPSIS Blood Pressure : */* mmHG Vent. Rate : 99 BPM Atrial Rate : 99 BPM P-R Int : 146 ms QRS Dur : 90 ms QT Int : 432 ms P-R-T Axes : 76 94 53 degrees QTcB Int : 554 ms Sinus rhythm with Premature atrial complexes with Aberrant conduction Rightward axis T wave abnormality, consider anterior ischemia Prolonged QT Abnormal ECG When compared with ECG of 16-May-2025 14:41, Aberrant conduction is now Present Incomplete right bundle branch block is no longer Present Referred By: Fartun Farris Electronically Signed By: ANGÉLICA VILLANUEVA MD
--- OUTSIDE RECORDS SUMMARY | 2025-06-04 14:57 | XMS_ITS | Clinical Summary ---
Author Organization [facility] Facility Address [address] [place] [address], [place] [address] Care Team Providers Care Drier Take Off Tender Name Role Phone Unavailable Primary Care Provider [...] age to complete this topic [place]
--- OUTSIDE RECORDS SUMMARY | 2025-06-04 14:57 | XMS_ITS | Encounter Summary ---
Author Organization [facility] Address [address] [place] [address] Care Team Providers Care Jaw Skinner Name Role Phone Nirali Lott Primary Care Provider [phone] Alba So NP Primary Care Provider [phone] Reason for Visit * Reason Onset Date Comments Hospital Follow-up 04/05/2024 Encounter Details Date Type Department Care Team ([facility] st Contact Info) Description 04/05/2024 Telephone [facility] MEDICINE [address], [place] [id number] Nirali Lott FNP [address] [place] [address] Hospital Follow-up Social History Tobacco Use Types [...] with others, in a hotel, in a mcfp, living outside on the street, on a [...] from pt requesting a HDF appt. Hospital: [facility] Date of admission: 03/30 Discharge date: 04/01 Diagnosed: Chest Pain documented in this encounter Plan of Treatment Not on file documented as of this encounter Visit Diagnoses Not on filedocumented in this encounter Additional Health Concerns Assessment Noted Time PHQ-9 Depression Total Score: 0 06/03/20 23 10:05 AM EDT documented as of this encounter Care Teams Jaw Skinner Relationship Specialty Start Date End Date Nirali Lott FNP [address] [place] [address] PCP - General Family Medicine 07/09/23 04/13/24 Alba So NP [address] [place] [address] PCP - General Family Medicine 04/14/24 documented as of this encounter
--- OUTSIDE RECORDS SUMMARY | 2025-06-04 14:57 | XMS_ITS | Encounter Summary ---
Author Organization [facility] Address [address] [place] [address] Phone Care Team Providers Care Table Assembler Name Role Phone Pcp, Unknown Primary Care Provider Unavailabl e Encounter Details Date Type Department Care Team (Late st Contact Info) Description 02/14/2020 Transcribe Orders [facility] Specimen Processing [address] [place] [address] Donell Villalobos, DO [address] [place] [address] [email or web address] Encounter for health examination of prisoner (Primary [...] ALKALINE PHOSPHATASE 138(H) 39 - 117 U/L [facility] TOTAL BILIRUBIN 0.5 0.0 - 1.2 mg/dL [facility] DIRECT BILIRUBIN 0.2 0 - 0.3 mg/dL [facility] Bilirubin (Indirect) 0.3 0 - 1.5 mg/dL [facility] AST 114(H) 0 - 37 U/L [facility] ALT 235(H) 0 - 40 U/L [facility] TOTAL PROTEIN 6.8 6.5 - 8.0 g/dL [facility] ALBUMIN 4.1 3.9 - 4.8 g/dL [facility] GLOBULIN 2.7 1 - 4.8 g/dL [facility] A/G Ratio 1.52 1.00 - 4.80 RATIO [facility] Blood 02/15/2020 10:0 4 AM EDT 02/15/2020 11:32 AM EDT us Donell A Bigda DO LAB BLOOD ORDERABLES Final Resul t Performing Organization Address City/State/[facility] Co de Phone Number [facility] [address] [place] [address] documented in this encounter Visit Diagnoses Diagnosis Encounter for health examination of prisoner- Primary documented in this encounter Additional Health Concerns Infection Onset Date Last Indicated Resolved Time CoV-Risk 03/27/2023 03/27/2023 04/07/2023 1:22 AM EDT documented as of this encounter Care Teams Table Assembler Relationship Specialty Start Date End Date Pcp, Unknown PCP - General 12/06/19 documented as of this encounter Additional Source Comments The information contained in this document represents components of the legal health record. It is not the complete legal health record.[facility]
[2025-06-04 16:47] LABS: MANUAL DIFF FLAG NO
[2025-06-04 16:51] LABS: Hematocrit 26.1 % (42.0-52.0); Hemoglobin 7.9 g/dl (14.0-18.0); Imm Gran Abs Auto 0.08 X10*3/uL (0.00-0.03); Imm Gran Pct Auto 0.7 % (0.0-0.4); Lymphocytes Absolute Auto 0.7 X10*3/uL (1.2-4.9); Mean Corpuscular HGB Conc 30.3 g/dl (31.0-36.0); Mean Corpuscular Hemoglobin 20.4 pg (27.0-33.0); Mean Corpuscular Volume 67.4 fL (80.0-98.0); NRBC Abs Auto 0.000 X10*3/uL (0.0-0.012); NRBC Pct Auto 0.0 /100WBC (0.0-0.2); Platelet Count 233 X10*3/uL (160-400); Red Blood Count 3.87 X10*6/uL (4.60-5.80); White Blood Count 11.7 X10*3/uL (4.8-10.8)
[2025-06-04 16:58] LABS: D Dimer High Sensitivity 1323 NG/ML
[2025-06-04 17:12] LABS: Alanine Aminotransferase 25 U/L (0-40); Albumin Level 3.6 g/dL (3.5-5.0); Alkaline Phosphatase 214 U/L (39-117); Anion Gap 16 (12-20); Aspartate Amino Transferase 58 U/L (5-37); Blood Urea Nitrogen 37 mg/dL (9-16); Calcium 8.7 mg/dL (8.4-10.2); Carbon Dioxide 19 mmol/L (22-29); Chloride 103 mmol/L (96-108); Creatinine Clr Calc Pharmacy 93.2; Estimated Glomerular Filt Rate > 60; Magnesium 2.2 mg/dL (1.6-2.6); Potassium 3.7 mmol/L (3.3-5.1); Sodium 134 mmol/L (135-145); Total Protein 7.6 g/dL (6.5-8.0)
[2025-06-04] MEDS: vancomycin/NS 2,000 MG/500 ML PLAST..BAG 250 MG IV (17:20)
[2025-06-04] MEDS: Glucose Gel 15 GM GEL..GRAM. PO (17:20)
--- NOTE | 2025-06-04 17:27 | PC.NURSE ---
Pt moved from hallway to ED 14 for monitoring, pt continually removing monitoring devices. U/A obtained. Blood cultures drawn per mobile home technician, IV abx per DEC. CT scan pending.
[2025-06-04 17:41] VITALS: BP 99/62; PULSE 99; RESP 18; TEMP 36.8; O2SAT 96
[2025-06-04 17:45] LABS: Glucose, Whole Blood 125 mg/dL (60-115)
--- NOTE | 2025-06-04 17:45 | MHC.EDTECH ---
patient came into the ER patient refused EKG when patient finally agree EKG machine was at use nurse aware of the delay
--- NOTE | 2025-06-04 17:45 | PC.NURSE ---
Pt glucose 59 initially, awake/alert and asking for snacks. Juice and crackers given. Recheck POC 125
--- NOTE | 2025-06-04 18:15 | MHC.EDTECH ---
attempted to draw patient type screen patient was disoriented and refused to let me draw the lab nurse aware
[2025-06-04 18:22] LABS: Appearance Urine Clear; Glucose Urine UA Negative (Negative); PH 6.0 (5.0-9.0); Specific Gravity - Urine 1.015 (1.005-1.025); UMIC TRIGGER UACC YES
[2025-06-04 18:31] LABS: Cannabinoid Screen Urine Not Detected (Not Detect)
--- NOTE | 2025-06-04 18:35 | PC.NURSE ---
Attempted to attain rectal temp per provider requests, pt refused and became very agitated with attempts to obtain temp. Unable to collect, provider notified.
[2025-06-04] MEDS: 0.9 % Sodium Chloride 2,245.29 ML 2245.29 ML IV (18:40)
[2025-06-04 19:06] LABS: Glucose, Whole Blood 115 mg/dL (60-115)
[2025-06-04 19:52] LABS: Troponin-I High Sensitivity 7.2 ng/L (<3.5-35.0)
--- NOTE | 2025-06-04 20:15 | PC.NURSE ---
approximately at this time CT team informed this RN that the pt was refusing CT scan, they stated they will attempt to scan this pt later on in the night
--- NOTE | 2025-06-04 20:25 | PC.NURSE ---
at this time provider Elaine Lynch at the bedside speaking w/ the pt, pt now adherent to receiving CT scan
--- NOTE | 2025-06-04 20:39 | PC.NURSE ---
at this time the pt returned from CT, CT team stated the pt continued to refuse his scans after speaking w/ the provider, pt requesting to go home, esther made aware, pending new orders
--- NOTE | 2025-06-04 21:06 | PC.NURSE ---
pt requested provider to D/C AMA, at this time this RN brought in paperwork, pt refusing to leave, security called and at the bedside. Paperwork signed, pt refused D/C vitals
[2025-06-04 21:13] VITALS: BP 0/0; PULSE 0; RESP 20; TEMP -17.7; TEMP 0
== END 2025-06-04 21:15 | disposition left against medical advice (07) ==
PROVIDERS: Physician Assistant; Emergency Provider Emergency Medicine
DX: R07.9 Chest pain, unspecified (principal); M79.605 Pain in left leg; D64.9 Anemia, unspecified; N17.9 Acute kidney failure, unspecified; E16.2 Hypoglycemia, unspecified; Z79.899 Other long term (current) drug therapy
CPT/HCPCS: 36415; 80053; 80307; 81001; 82550; 82947; 83605; 83735; 84484; 85025; 85379; 87040; 93005; 93971; 96365; 96366; 96367; 99285; 99291; J2543; J3373; S9485

== ENCOUNTER → 2025-06-04 14:47 | Outpatient (BNV) | payer MEDICAID, SELFPAY | PROVIDERS: Emergency Provider Emergency Medicine; Visit Provider Radiology Diagnostic Radiology | DX: R22.43 Localized swelling, mass and lump, lower limb, bilateral (principal) | CPT/HCPCS: 93971 ==

== ENCOUNTER → 2025-06-04 14:51 | Outpatient (BNV) | payer MEDICAID, SELFPAY | PROVIDERS: Emergency Provider Emergency Medicine; Visit Provider Internal Medicine Cardiovascular Disease | DX: I49.1 Atrial premature depolarization (principal); I45.81 Long QT syndrome | CPT/HCPCS: 93010 ==

== ENCOUNTER 2025-06-06 10:30 | Emergency (ER) | payer MEDICAID, SELFPAY ==
[2025-06-06 10:37] VITALS: BP 118/59; PULSE 100; RESP 18; TEMP 36.6; O2SAT 95; BMI 23.1
--- NOTE | 2025-06-06 10:41 | PC.NURSE ---
immediately after triage pt stated that he was leaving because he was hungry and wanted to get something, I sstressed that he should stay and family with him also tried to convince him but he walked out the door
--- OUTSIDE RECORDS SUMMARY | 2025-06-06 13:09 | XMS_ITS | Encounter Summary ---
Author Organization [facility] Address [address] [place] [address] Phone Care Team Providers Care Drum Dyeing Machine Operator Name Role Phone Pcp, Unknown Primary Care Provider Unavailabl e Encounter Details Date Type Department Care Team (Late st Contact Info) Description 02/14/2020 Transcribe Orders [facility] Specimen Processing [address] [place] [address] Donlel Villalobos, DO [address] [place] [address] [place] [address] [email or web address] Encounter for health examination of prisoner (Primary [...] ALKALINE PHOSPHATASE 138(H) 39 - 117 U/L [facility] TOTAL BILIRUBIN 0.5 0.0 - 1.2 mg/dL [facility] DIRECT BILIRUBIN 0.2 0 - 0.3 mg/dL [facility] Bilirubin (Indirect) 0.3 0 - 1.5 mg/dL [facility] AST 114(H) 0 - 37 U/L [facility] ALT 235(H) 0 - 40 U/L [facility] TOTAL PROTEIN 6.8 6.5 - 8.0 g/dL [facility] ALBUMIN 4.1 3.9 - 4.8 g/dL [facility] GLOBULIN 2.7 1 - 4.8 g/dL [facility] A/G Ratio 1.52 1.00 - 4.80 RATIO [facility] Blood 02/15/2020 10:0 4 AM EDT 02/15/2020 11:32 AM EDT us Donell A Bigda DO LAB BLOOD ORDERABLES Final Resul t Performing Organization Address City/State/[facility] Co de Phone Number [facility] [address] [place] [address] documented in this encounter Visit Diagnoses Diagnosis Encounter for health examination of prisoner- Primary documented in this encounter Additional Health Concerns Infection Onset Date Last Indicated Resolved Time CoV-Risk 03/27/2023 03/27/2023 04/07/2023 1:22 AM EDT documented as of this encounter Care Teams Drum Dyeing Machine Operator Relationship Specialty Start Date End Date Pcp, Unknown PCP - General 12/06/19 documented as of this encounter Additional Source Comments The information contained in this document represents components of the legal health record. It is not the complete legal health record.[facility]
--- OUTSIDE RECORDS SUMMARY | 2025-06-06 13:09 | XMS_ITS | Encounter Summary ---
Author Organization [employer] Address [address] [place] [address] Care Team Providers Care Earth Science Laboratory Technician Name Role Phone Nirali Lott Primary Care Provider [phone] Alba So NP Primary Care Provider [phone] Reason for Visit * Reason Onset Date Comments Hospital Follow-up 04/05/2024 Encounter Details Date Type Department Care Team ([facility] st Contact Info) Description 04/05/2024 Telephone [facility] MEDICINE [address], [place] [phone] Nirali Lott FNP [address] [place] [address] Hospital Follow-up Social History Tobacco Use Types [...] pt requesting a HDF appt. Hospital: [facility] Date of admission: 03/30 Discharge date: 04/01 Diagnosed: Chest Pain documented in this encounter Plan of Treatment Not on file documented as of this encounter Visit Diagnoses Not on filedocumented in this encounter Additional Health Concerns Assessment Noted Time PHQ-9 Depression Total Score: 0 06/03/20 23 10:05 AM EDT documented as of this encounter Care Teams Earth Science Laboratory Technician Relationship Specialty Start Date End Date Nirali Lott FNP [address] [place] [address] PCP - General Family Medicine 07/09/23 04/13/24 Alba So NP [address] [place] [address] PCP - General Family Medicine 04/14/24 documented as of this encounter
--- OUTSIDE RECORDS SUMMARY | 2025-06-06 13:09 | XMS_ITS | Clinical Summary ---
Author Organization [facility] Address [address] [place] [address], [place] [id number] Care Team Providers Care Laundry Aid Name Role Phone Unavailable Primary Care Provider [...] age to complete this [place]
== END 2025-06-06 13:10 | disposition left against medical advice (07) ==
PROVIDERS: Emergency Provider Emergency Medicine
DX: Z53.21 Procedure and treatment not carried out due to patient leaving prior to being seen by health care provider (principal)
CPT/HCPCS: 99281

== ENCOUNTER 2025-06-06 13:40 | Inpatient (IN) | payer MEDICAID, SELFPAY ==
--- NOTE | ~2025-06-06 | US_ITS ---
EXAMINATION: US TRIPLEX LOWER EXTREMITY, BILATERAL CLINICAL INFORMATION: Swelling and warmth left greater than right lower extremities. Rule out DVT. COMPARISON: None available. TECHNIQUE: Color-flow triplex imaging with spectral analysis and compression Doppler were performed on the bilateral lower extremities. FINDINGS: Respiratory variation, normal compression and augmented flow are noted throughout the bilateral lower extremities. The visualized common femoral vein, superficial femoral vein, profunda femoral vein, popliteal vein and midcalf peroneal and posterior tibial venous segments show no evidence of deep venous thrombosis bilaterally. There is no Mauricio's cyst. Reactive lymph nodes noted in both groin regions. US/US venous duplex LE BI IMPRESSION: No evidence of deep venous thrombosis involving the bilateral lower extremities. Electronically signed by: Cory Krishnan MD 06/07/2025 09:13 AM EDT
--- NOTE | ~2025-06-06 | CT_ITS ---
CLINICAL HISTORY: elevated d-dimer, hx IVDA CT angiography chest with contrast. 3D Postprocessing. Comparison: CT/DC/SR - CT ANGIO CHEST PE PROTOCOL - 12/25/2024 02:24 PM EDT Findings: The heart size is normal. RV/LV ratio is normal. Unremarkable thoracic aorta and great vessels. No aneurysm. No acute pulmonary embolus. The visualized thyroid and mediastinum are unremarkable. No consolidation or effusion. Small perihepatic free fluid. The bones are intact. IMPRESSION: 1. No pulmonary emboli. No acute aortic syndrome. Lungs are grossly clear. 2. Small perihepatic free fluid, partially imaged, correlate with dedicated abdominal imaging. This document has been electronically signed by: Dennis Arce MD on 06/06/2025 23:03:49
--- NOTE | ~2025-06-06 | XR_ITS ---
EXAMINATION: XR TIBIA AND FIBULA, LEFT CLINICAL INFORMATION: Pain and swelling. COMPARISON: 04/04/2025. TECHNIQUE: AP and lateral views of the left tibia and fibula were obtained. FINDINGS: The bones and soft tissues are normal. No fracture. No osseous lesions. Imaged joints appear normal. XR/XR tibia fibula LT 2V IMPRESSION: Normal left tibia and fibula. Electronically signed by: Cory Krishnan MD 06/07/2025 08:26 AM EDT
--- NOTE | ~2025-06-06 | CT_ITS ---
EXAMINATION: CT HEAD WITHOUT CONTRAST CLINICAL INFORMATION: AMS - IVDU - mitral valve endocarditis COMPARISON: March 02, 2023 TECHNIQUE: Contiguous axial imaging was performed from the skull base to vertex without intravenous administration of contrast. This CT examination was performed using dose optimization techniques as appropriate, variously including the following: *Automated exposure control *Adjustment of mA and/or kV according to patient size (this includes techniques or standardized protocols for targeted exams where dose is matched to indication/reason for exam; i.e. extremities or head) *Use of iterative reconstruction technique DLP: 1457 mGY*cm FINDINGS: Motion mildly degrades the study. There is no acute ischemic change. There is no intracranial hemorrhage. There is no mass-effect or midline shift. Basal cisterns and ventricles are within normal limits for age/cerebral volume. Orbits are symmetrical and unremarkable. Paranasal sinuses and mastoid air cells are pneumatized. There are no bony abnormalities. CT/CT head/brain wo IV con IMPRESSION: No acute intracranial abnormality. Electronically signed by: Jarred Escudero MD 06/08/2025 12:15 PM EDT
--- NOTE | ~2025-06-06 | CT_ITS ---
EXAMINATION: CT ABDOMEN AND PELVIS WITHOUT CONTRAST CLINICAL INFORMATION: ascites, hepatitis C COMPARISON: February 07, 2025 TECHNIQUE: Multidetector volumetric imaging was performed from the superior aspect of the liver through the pubic symphysis. Sagittal and coronal reformatted images were obtained on the technologist's workstation. This CT examination was performed using dose optimization techniques as appropriate, variously including the following: *Automated exposure control *Adjustment of mA and/or kV according to patient size (this includes techniques or standardized protocols for targeted exams where dose is matched to indication/reason for exam; i.e. extremities or head) *Use of iterative reconstruction technique DLP: 783 mGY*cm FINDINGS: LUNG BASES: The visualized lung bases are unremarkable. LIVER, GALLBLADDER, AND BILIARY TREE: There is subtle nodularity of the liver surface. The liver size is enlarged. There is recannulation of the umbilical vein. There is a small to medium amount of ascites, improved from the prior. Gallbladder is partially decompressed. No biliary ductal dilation is evident. PANCREAS: Unremarkable. SPLEEN: Unremarkable. ADRENAL GLANDS: Unremarkable. KIDNEYS AND URETERS: The kidneys are normal in size, shape, and attenuation. No hydronephrosis, hydroureter, or calculi seen. No perinephric stranding. BLADDER: Unremarkable. GASTROINTESTINAL TRACT: Moderate stool and gas is present throughout the colon. The appendix is not visualized. ABDOMINAL WALL: Intact. LYMPH NODES: There are shotty periaortic and inguinal lymph nodes. VASCULAR: Mild multifocal atherosclerotic calcifications are present. PELVIC VISCERA: Unremarkable. OSSEOUS STRUCTURES: Unremarkable. CT/CT abdomen pelvis wo IV con IMPRESSION: There is evidence of portal hypertension. There is hepatomegaly with recannulization of the umbilical vein and a finely nodular liver surface suggesting cirrhosis and mild to moderate ascites which is improved since the prior. Constipation. Fleischner guidelines were followed. Electronically signed by: Jarred Escudero MD 06/08/2025 12:24 PM EDT
[2025-06-06 14:13] VITALS: BP 122/76; PULSE 95; RESP 18; TEMP 36.8; O2SAT 96; BMI 23.1
--- NOTE | 2025-06-06 14:19 | ECG_ITS ---
Test Reason : abn labs Blood Pressure : */* mmHG Vent. Rate : 86 BPM Atrial Rate : 86 BPM P-R Int : 140 ms QRS Dur : 96 ms QT Int : 422 ms P-R-T Axes : 84 81 48 degrees QTcB Int : 504 ms Normal sinus rhythm Incomplete right bundle branch block Nonspecific T wave abnormality Prolonged QT Abnormal ECG When compared with ECG of 04-Jun-2025 17:30, Aberrant conduction is no longer Present Referred By: Zayda Alvarado Electronically Signed By: ANGÉLICA VILLANUEVA MD
--- NOTE | 2025-06-06 14:20 | ED_ITS ---
HPI - General Adult General Chief complaint: General Medical Stated complaint: LWT earlier, returning Time Seen by Provider: 06/06/25 21:09 Source: patient and old records reviewed Mode of arrival: ambulatory Limitations: altered mental status (Drug intoxication) History of Present Illness ED Provider: Dr. Yanet Jang HPI narrative: 34-year-old male history of bacteremia, IV drug abuse, hepatitis-C, LUCERO, bleeding varices, heart failure, pulmonary embolism, endocarditis, anasarca, continued polysubstance use presenting to the emergency department after leaving against medical advice the day before yesterday. Patient originally came to the hospital 2 days ago with fatigue, increased thirst, leg pain in the left lower extremity as well as pleuritic chest pain. He was ultimately diagnosed with elevated bilirubin, hypoglycemia, anemia and acute kidney injury. His D-dimer was significantly elevated but he refused a CT and ultimately left against medical advice. He admits he came back to the hospital today when someone called his home and spoke with his mother, telling him that he needed to come back to the hospital for evaluation. Patient does not know why. States that he continues to have some shortness of breath and chest pain but is unable to elaborate on this further. He is falling asleep during my exam and I suspect he is currently intoxicated. He states ?I have not been sleeping much lately?. Denies substance use. Related Data Home Medications ?Medication ?Instructions ?Recorded ?Confirmed methadone 10 mg/mL oral 115 mg PO DAILY 09/13/24 concentrate (Methadone Intensol) magnesium oxide 400 mg PO BID 10/10/2403/04 albuterol sulfate 90 mcg/actuation 2 inh inhalation Q6 H PRN wheezing 02/07/25 03/04/25 breath activated powder inhaler (ProAir RespiClick) Previous Rx's ?Medication ?Instructions ?Recorded apixaban 5 mg tablet (Eliquis) 5 mg PO BID 30 days #60 tabs 02/09/25 linezolid 600 mg tablet 600 mg PO BID #42 tabs 03/06 Allergies Allergy/AdvReac Type Severity Reaction Status Date / Time No Known Allergies (No Known Allergy Verified 06/06/25 14:15 Allergies*) Review of Systems 2 Review of Systems: Yes Unobtainable due to mental status PMFSH Past Medical History Medical History Rhabdomyolysis Anemia LUCERO (acute kidney injury) Polysubstance abuse Opioid use disorder Opioid use disorder, severe, dependence Substance abuse MSSA bacteremia Bacteremia Bacteremia Right heart failure Steatosis, liver Tricuspid valve stenosis Anasarca HCV (hepatitis C virus) Endocarditis Pulmonary embolism Surgical History S/P tricuspid valve replacement History of tricuspid valve replacement with bioprosthetic valve Social History Social History Household Members: Unknown / Unable to assess Household Members Other:: penitentiary Housing: Unknown / Unable to assess Do you presently have visiting nurse or other home services: No Unable to assess alcohol history related to: Refusing to respond Alcohol intake: never Patient Tobacco Use Status: Tobacco use Unknown Tobacco use type: Cigarette Cigarette Packs Per Day: 0.5 Cigarettes Per Day: 10.0 Years Smoked: 10 Smoked in Last 30 Days: Yes Second Hand Smoke Exposure: No Use of substances other than those prescribed or required for medical reasons: No Substance Use Type: Heroin Advance Directives: Yes Advance Directives on File: Yes Advance Directives Date on File: 04/16/21 Do you have a plan to hurt others: No Plan service: No Current occupational status: unemployed Physical Exam ED Exam Exam: GENERAL: Appears intoxicated, GCS 13, eyes open to voice, slurred speech, no acute distress, unkempt. SKIN: Normal skin color for ethnicity, warm, dry, multiple excoriations in the bilateral upper and lower extremities of various stages of healing, no vesicular lesions. HEENT: Normocephalic, atraumatic, no stridor, posterior oropharynx nonerythematous, dentition intact, EOMI, pupils are pinpoint bilaterally, reactive to light. NECK: Soft, supple, no step-offs, no deformities, no lymphadenopathy. CHEST: Heart regular rhythm, harsh systolic ejection murmur at the left lower sternal border, symmetric chest rise and fall. PULMONARY: Clear to auscultation bilaterally, diminished at the bases, no labored breathing, no wheezes/rhales/rhonchi. ABDOMINAL: Soft, nondistended, quiet bowel sounds in all quadrants. : Deferred. MUSCULOSKELETAL: Normal tone, limited range of motion secondary to pain at the ankle and knee bilaterally, no deformities, 3+ peripheral edema bilaterally. NEURO: GCS 13, eyes open to voice, slightly slurred speech, CN II through XII intact, equal strength and sensation bilateral upper and lower extremities, no focal neurologic deficits. PSYCHIATRIC: Flat affect, poor eye contact. Vital Signs: Vital Signs - 24 hr 06/06/25 14:13 06/06/25 21:12 06/06/25 22:20 Temperature 98.2 F 98.2 F 97.3 F Pulse Rate 95 79 76 Respiratory Rate 18 13 16 Blood Pressure 122/76 118/72 106/64 Pulse Oximetry 96 96 97 Oxygen Delivery Method Room Air Room Air Room Air BMI result Body Mass Index 23.1 Course Course Course Narrative: This is a Rapid Medical Examination (RME) performed by Elaine Alvarado PA-C in triage. Full HPI, ROS, assessment and treatment plan per primary provider in the Main ED. Hx: 34 yo M hx of bacteremia, IV drug abuse, hepatitis-C, LUCERO, bleeding varices, heart failure, pulmonary embolism, endocarditis, anasarca here for CT scan after leaving AMA 3 days ago. had elevated dimer at that time. Plan: labs, ekg Medications Administered Discontinued Medications Generic Name Dose Route Start Last Admin Trade Name Freq PRN Reason Stop Dose Admin Iohexol 85 ml 06/06/25 22:07 06/06/25 22:13 Iohexol 350 Mg/Ml 100 Ml Infus..Btl IV 06/06/25 22:08 85 ml ONCE ONE Administration Procedures Procedure Narrative Procedure Narrative: Ultrasound-guided IV 20 gauge 1-3/4 inch IV placed in left upper extremity. Adequate blood return, flushes well secured with Tegaderm. Performed by Nicolasa Stover PA-C Medical Decision Making Medical Decision Making MDM Narrative: Patient presents today with chief complaint of shortness of breath. Differential diagnosis includes, but is not limited to, upper respiratory infection, pneumonia, COPD exacerbation, asthma exacerbation, CHF, pneumothorax, pleural effusion, pulmonary embolism, ACS. Broad-based work-up will be initiated to evaluate for etiology of patient's symptoms. Most concerning is the elevated D-dimer that was never investigated fully yesterday. He did have an ultrasound of the left lower extremity which was negative for DVT. We will add on CTA. 10:28 PM 06/06/2025 (Dr. Yanet Jang, Jerson.O.) patient having an episode of shelby hemoptysis. He coughed up approximately 20 cc of blood. Obvious concern would be for potential tuberculosis given his immunocompromise state, homelessness and IV drug use. Plan for isolation precautions, QuantiFERON test to be added on. Awaiting CTA result. 11:29 PM 06/06/2025 (Dr. Yanet Jang, Jerson.O.) CTA does not show evidence of PE or infiltrate. He does have some ascites on the abdominal windows. Without any infiltrates, concern for tuberculosis would be much lower. That being said, we will still rule him out. Plan for admission to hospitalist for further care and evaluation of anemia, hemoptysis while on anticoagulation. He has had no further episodes here in his resting comfortably with normal vital signs. No other evidence of infection today. Lab Data 06/07/25 01:09 06/06/25 15:18 Labs: Lab Results 06/06/25 06/06/25 Range/Units 15:18 21:11 WBC 6.2 (4.8-10.8) X10*3/uL RBC 3.81 L (4.60-5.80) X10*6/uL Hgb 7.8 L (14.0-18.0) g/dl Hct 27.2 L (42.0-52.0) % MCV 71.4 L (80.0-98.0) fL MCH 20.5 L (27.0-33.0) pg MCHC 28.7 L (31.0-36.0) g/dl RDW 27.7 H (11.0-16.0) % Plt Count 263 (160-400) X10*3/uL MPV 9.7 (9.4-12.4) fL Immature Gran % (Auto) 1.0 H (0.0-0.4) % Neut % (Auto) 53.9 (45-73) % Lymph % (Auto) 25.8 (20-40) % [place] % (Auto) 13.5 H (2-11) % Eos % (Auto) 5.0 H (0-4) % Baso % (Auto) 0.8 (0-2) % Lymph # (Auto) 1.6 (1.2-4.9) X10*3/uL [place] # (Auto) 0.8 (0.1-1.2) X10*3/uL Eos # (Auto) 0.3 (0.0-0.4) X10*3/uL Baso # (Auto) 0.1 (0.0-0.2) X10*3/uL Abs Immat Gran (auto) 0.06 H (0.00-0.03) X10*3/uL Absolute Neuts (auto) 3.4 (2.0-8.3) x10*3/uL Absolute Nucleated RBC 0.000 (0.0-0.012) X10*3/uL Nucleated RBC % (auto) 0.0 (0.0-0.2) /100WBC PT 25.0 H (10.9-12.4) SEC INR 2.2 H (0.9-1.1) D-Dimer High Sensitivty 1296 NG/ML Sodium 141 (135-145) mmol/L Potassium 3.5 (3.3-5.1) mmol/L Chloride 112 H (96-108) mmol/L Carbon Dioxide 20 L (22-29) mmol/L Anion Gap 13 (12-20) BUN 21 H (9-16) mg/dL Creatinine 0.79 (0.5-1.4) mg/dL Estim Creat Clear Calc 116.6 Estimated GFR > 60 Random Glucose 89 (60-115) mg/dL Calcium 8.3 L (8.4-10.2) mg/dL Magnesium 1.9 (1.6-2.6) mg/dL Total Bilirubin 1.0 (0.0-1.0) mg/dL AST 41 H (5-37) U/L ALT 25 (0-40) U/L Alkaline Phosphatase 227 H (39-117) U/L Troponin I High Sens 3.3 D (<3.5-35.0) ng/L Total Protein 7.0 (6.5-8.0) g/dL Albumin 3.4 L (3.5-5.0) g/dL Urine Color Yellow Urine Appearance Clear Urine pH 6.0 (5.0-9.0) Ur Specific [place] 1.015 (1.005-1.025) Urine Protein Negative (Neg-Trace) mg/dL Urine Glucose (UA) Negative (Negative) mg/dL Urine Ketones Negative (Negative) mg/dL Urine Blood Trace H (Negative) Urine Nitrite Negative (Negative) Ur Leukocyte Esterase Negative (Negative) Urine RBC 6-10 H (0-2) /HPF Urine WBC 0-5 (0-5) /HPF Ur Squamous Epith Cells 0-2 (0-2) /HPF Urine Bacteria None Seen (None Seen) Hyaline Casts 0-2 (0-2) /LPF Urine Opiates Screen Not Detected (Not Detect) Ur Buprenorphine Scrn Not Detected (Not Detect) ng/mL Ur Oxycodone Screen Not Detected (Not Detect) ng/mL Urine Methadone Screen Positive H (Not Detect) ng/mL Urine Fentanyl Screen POSITIVE H (Not Detect) Ur Barbiturates Screen Not Detected (Not Detect) Ur Phencyclidine Scrn Not Detected (Not Detect) Ur Amphetamines Screen Not Detected (Not Detect) U Benzodiazepines Scrn Not Detected (Not Detect) Urine Cocaine Screen POSITIVE H (Not Detect) U Marijuana (THC) Screen Not Detected (Not Detect) Critical Care Time Critical Care Time Critical Care Time: Yes Total Critical Care Time: 36 Attestation: CRITICAL CARE TIME: 36 minutes of critical care time was spent in direct patient care at the bedside or in the immediate area with this patient. Critical care was necessary to treat or prevent imminent or life-threatening deterioration of the following conditions hemoptysis due to potential pulmonary embolism, likely related IV drug use. This patient is high risk for decompensation and/or . This time was spent assessing and managing the patient, interpreting labs and imaging, coordinating care with other medical providers, gathering history from either the patient, their representatives, EMS or chart review, and discussing management with admitting team. Discharge Plan Discharge Clinical Impression: Cough with hemoptysis, Active intravenous drug use, Acute on chronic anemia, On continuous oral anticoagulation Patient Disposition: Admitted As Inpatient
[2025-06-06 15:26] LABS: MANUAL DIFF FLAG NO
[2025-06-06 15:30] LABS: Hematocrit 27.2 % (42.0-52.0); Hemoglobin 7.8 g/dl (14.0-18.0); Imm Gran Abs Auto 0.06 X10*3/uL (0.00-0.03); Imm Gran Pct Auto 1.0 % (0.0-0.4); Lymphocytes Absolute Auto 1.6 X10*3/uL (1.2-4.9); Mean Corpuscular HGB Conc 28.7 g/dl (31.0-36.0); Mean Corpuscular Hemoglobin 20.5 pg (27.0-33.0); Mean Corpuscular Volume 71.4 fL (80.0-98.0); NRBC Abs Auto 0.000 X10*3/uL (0.0-0.012); NRBC Pct Auto 0.0 /100WBC (0.0-0.2); Platelet Count 263 X10*3/uL (160-400); Red Blood Count 3.81 X10*6/uL (4.60-5.80); White Blood Count 6.2 X10*3/uL (4.8-10.8)
[2025-06-06 15:35] LABS: INTERNATIONAL NORM RATIO 2.2 (0.9-1.1); Prothrombin Time 25.0 SEC (10.9-12.4)
[2025-06-06 15:37] LABS: D Dimer High Sensitivity 1296 NG/ML
[2025-06-06 15:42] LABS: Alanine Aminotransferase 25 U/L (0-40); Albumin Level 3.4 g/dL (3.5-5.0); Alkaline Phosphatase 227 U/L (39-117); Anion Gap 13 (12-20); Aspartate Amino Transferase 41 U/L (5-37); Blood Urea Nitrogen 21 mg/dL (9-16); Calcium 8.3 mg/dL (8.4-10.2); Carbon Dioxide 20 mmol/L (22-29); Chloride 112 mmol/L (96-108); Creatinine Clr Calc Pharmacy 116.6; Estimated Glomerular Filt Rate > 60; Magnesium 1.9 mg/dL (1.6-2.6); Potassium 3.5 mmol/L (3.3-5.1); Sodium 141 mmol/L (135-145); Total Protein 7.0 g/dL (6.5-8.0)
[2025-06-06 15:49] LABS: Troponin-I High Sensitivity 3.3 ng/L (<3.5-35.0)
[2025-06-06 21:12] VITALS: BP 118/72; PULSE 79; RESP 13; TEMP 36.8; O2SAT 96
--- NOTE | 2025-06-06 21:18 | PC.NURSE ---
pt changed over, belongings in [place], pt placed on monitor at the bed side.
[2025-06-06 21:29] LABS: Appearance Urine Clear; Cannabinoid Screen Urine Not Detected (Not Detect); Glucose Urine UA Negative (Negative); PH 6.0 (5.0-9.0); Specific Gravity - Urine 1.015 (1.005-1.025); UMIC TRIGGER UACC YES
--- NOTE | 2025-06-06 21:47 | PC.NURSE ---
pt getting ultra sound IV
--- NOTE | 2025-06-06 22:07 | PC.NURSE ---
pt taken to CT Scan.
[2025-06-06] MEDS: iohexoL 350 MG/ML 100 ML INFUS..BTL 85 ML IV (22:13)
[2025-06-06 22:20] VITALS: BP 106/64; PULSE 76; RESP 16; TEMP 36.3; O2SAT 97
--- NOTE | 2025-06-06 22:31 | PC.NURSE ---
pt given a meal and kaitlin nancy
--- NOTE | 2025-06-06 22:44 | PC.NURSE ---
pt has increase cough, pt coughing up blood, Notiifed Dr. Jang, pt transfered to Room 1 report given to NABEEL Wilsno.
--- NOTE | 2025-06-06 23:23 | MHC.EDTECH ---
lab said to hold off on quantiferon blood test. This lab is sent out to [facility] and needs to be in the lab by 5pm in order to be sent out. aware.
--- NOTE | 2025-06-06 23:30 | MHC.EDTECH ---
discussed with Dr. Jang what the lab had said, she said to collect the quantiferon test and have the lab hold.
--- NOTE | 2025-06-07 00:11 | PM.IMHP ---
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 Patient had left prior to having CTA to rule out PE noting patient's history and noncompliance with Eliquis. Patient did return today and chest CTA is negative for PE with no acute aortic syndrome. Lungs are considered clear. There is some small perihepatic free fluid which should be correlated with the abdominal imaging. Additional concerns on arrival included hemoptysis with previously identified mitral valve vegetation and stenosis of tricuspid valve prosthesis. Patient also having extensive abdominal distention. Possible cellulitis in left lower extremity. Patient is very groggy on presentation with a positive tox screen for heroin, fentanyl and cocaine. Patient states he admitted himself into [facility] approximately 4 days prior and signed himself out as he did not like the idea of being locked up. After that patient was calling [place] for detox bed which she has been to before and as he was getting ready to go to [place], his mother received the call from the ED to have him come in for the elevated D-dimer. Patient is a very reflective on his current acute and chronic medical issues that ultimately are possibly life-threatening as patient continues to use IV drugs. Patient feels that being homeless is making it more difficult to stop using. Patient denies suicidal ideations today. Patient is well-versed in the fact that he has a mitral valve vegetation/endocarditis with stenosis of the tricuspid valve prosthesis. This is what likely is contributing to his hemoptysis. The emergency department has ordered a TB screen which is pending. Initial H&H on arrival was 7.8 and 27.2 and H&H has been since repeated 8 hours later and is 7.7 and 26.8. Patient is not requiring transfusion as hemodynamics are currently stable. D-dimer was repeated today and went from [id number]. INR is 2.2. Patient has significant swelling in the abdomen, likely ascites. Patient states on a previous admission this year a paracentesis was attempted but patient could not tolerate the pain of the procedure and stopped the procedure before intervention could occur. Patient has been seen by GI and previous admissions for his known hepatitis-C that is untreated with rising RNA viral loads. Patient also has known cirrhosis of the liver. Patient has not attempted outpatient GI follow-up start treating his hepatitis-C. Patient denies any alcohol use. Ammonia level is pending. Pt is presenting alert and orientated with some possible encephalopathy but more so groggy with possible withdrawal from illicit drug use. AST is 41, ALT 25, alk-phos 227 and total bilirubin 1.0. Patient has had also chronic issues with his left lower leg with now a closed wound but mild edema with redness and swelling. Venous Dopplers done of the lower extremity on 06/04/2025 was negative for DVT. Last x-ray of left lower extremity was March of 2025. Patient states he is able to bear weight but is having pain especially in the left lower leg. Repeat venous Dopplers and x-ray of left leg are pending. Patient is being admitted for hemoptysis, mitral valve vegetation/endocarditis with tricuspid valve prosthesis stenosis, ascites, left lower leg cellulitis with possible DVT and substance use disorder. Review of Systems Review of Systems: Patient currently denies any chest pain or shortness of breath at rest. Patient is reporting that he feels very sleepy and groggy and sleep deprived. Patient states his appetite has been good but he has been losing weight. Patient states the swelling in his belly has gotten somewhat worse over the last couple of months. Patient was not able to tolerate previous attempt at paracentesis. Patient denies any nausea, vomiting, diarrhea or constipation issues. Patient is incurring increased left leg pain but is able to bear weight. Yes all other systems are reviewed and are negative [facility] Medical History Rhabdomyolysis Anemia LUCERO (acute kidney injury) Polysubstance abuse Opioid use disorder Opioid use disorder, severe, dependence Substance abuse MSSA bacteremia Bacteremia Bacteremia Right heart failure Steatosis, liver Tricuspid valve stenosis Anasarca HCV (hepatitis C virus) Endocarditis Pulmonary embolism Cognitive capacity: Alert and orientated x3 Functional capacity: independent ambulation Surgical History S/P tricuspid valve replacement History of tricuspid valve replacement with bioprosthetic valve Social History Household Members: Unknown / Unable to assess Household Members Other:: jail Housing: Unknown / Unable to assess Do you presently have visiting nurse or other home services: No Unable to assess alcohol history related to: Refusing to respond Alcohol intake: never Patient Tobacco Use Status: Tobacco use Unknown Tobacco use type: Cigarette Cigarette Packs Per Day: 0.5 Cigarettes Per Day: 10.0 Years Smoked: 10 Smoked in Last 30 Days: Yes Second Hand Smoke Exposure: No Use of substances other than those prescribed or required for medical reasons: No Substance Use Type: Heroin Advance Directives: Yes Advance Directives on File: Yes Advance Directives Date on File: 04/16/21 Do you have a plan to hurt others: No Plan service: No Current occupational status: unemployed Ebola Risk: Travel/Contact With Anyone From Affected Area/s: No Has Patient Experienced Ebola Symptoms: No Meds Allergies Allergy/AdvReac Type Severity Reaction Status Date / Time No Known Allergies (No Known Allergy Verified 06/06/25 14:15 Allergies*) Active Medications: Current Medications Acetaminophen (Acetaminophen 325 Mg Tablet) 650 mg PO Q6H PRN PRN Reason: Pain, Mild 1-3,fever,headache Albuterol/Ipratropium (Albuterol/Iprat 2.5/0.5mg 3 Ml Ampul.Neb) 3 ml INHALE Q4H PRN PRN Reason: Shortness of Breath/Wheezing Calcium Carbonate (Calcium Carbonate 750 Mg Tab.Chew) 750 mg PO Q4H PRN PRN Reason: Heartburn Magnesium Hydroxide (Milk Of Magnesia 30 Ml Oral.Susp) 30 ml PO DAILY PRN PRN Reason: Constipation Melatonin (Melatonin 3 Mg Tablet) 6 mg PO BEDTIME PRN PRN Reason: Insomnia Ondansetron HCl (Ondansetron Hcl 4 Mg/2 Ml Vial) 4 mg IVPUSH Q8H PRN PRN Reason: Nausea and Vomiting Polyethylene Glycol (Polyethylene Glycol 3350 17 Gm Powd.Pack) 17 gm PO DAILY PRN PRN Reason: Constipation Senna (Sennosides 8.6 Mg Tablet) 17.2 mg PO BEDTIME CRISTINA Sodium Chloride (0.9 % Sodium Chloride Flush 3 Ml Syringe) 3 ml IVFLUSH QSHIFT CRISTINA Home Medications ?Medication ?Instructions ?Recorded ?Confirmed ?Last Taken ?Type methadone 10 mg/mL oral 115 mg PO DAILY 09/13/24 03/04/25 03/02/25 History concentrate (Methadone Intensol) magnesium oxide 400 mg PO BID 10/10/24 03/04/25 10/11/24 History albuterol sulfate 90 mcg/actuation 2 inh inhalation Q6H PRN wheezing 02/07/25 03/04/25 Unknown History breath activated powder inhaler (ProAir RespiClick) Physical Exam Vital Signs and Narrative: Vital Signs: Last Vital Signs Temp 97.3 F 06/06/25 22:20 Pulse 76 06/06/25 22:20 Resp 16 06/06/25 22:20 BP 106/64 06/06/25 22:20 Pulse Ox 97 06/06/25 22:20 O2 Del Method Room Air 06/06/25 22:20 BMI result Body Mass Index 23.1 Awake and alert with intermittent grogginess and sleepiness, patient is able to answer questions asked appropriately Neuro: CN II-X11 intact, no deficits, visual acuity intact EYES: PERRLA, sclerae nonicteric, conjunctiva slightly pale ENT: hearing intact, no issues with swallowing, uvula midline, lips moist, nares patent no epistaxis Cardiac: S1 S2 RRR, systolic murmur murmur, no JVD, no edema in Lower ext, sternotomy incision healed Pulmonary: lungs diminished bilaterally Abdominal: BS active in all 4 quadrants, mild guarding right upper quadrant, noted swelling/ascites consider moderate MSK: strength 4/5 upper and lower extremities : no CVA tenderness no bladder distension Extremities: Moderate edema in lower extremities L>R, PT and DP pulses palpable +2 Psych: mood stable, judgement and insight good Skin: Closed wound left lower extremity, redness warmth and tenderness in the left lower extremity Results Labs 06/07/25 01:09 06/06/25 15:18 Labs: Laboratory Results - last 24 hr 06/06/25 06/06/25 15:18 21:11 MCV 71.4 L MCH 20.5 L MCHC 28.7 L RDW 27.7 H Plt Count 263 MPV 9.7 Immature Gran % (Auto) 1.0 H Neut % (Auto) 53.9 Lymph % (Auto) 25.8 [place] % (Auto) 13.5 H Eos % (Auto) 5.0 H Baso % (Auto) 0.8 Lymph # (Auto) 1.6 [place] # (Auto) 0.8 Eos # (Auto) 0.3 Baso # (Auto) 0.1 Abs Immat Gran (auto) 0.06 H Absolute Neuts (auto) 3.4 Absolute Nucleated RBC 0.000 Nucleated RBC % (auto) 0.0 PT 25.0 H INR 2.2 H D-Dimer High Sensitivty 1296 Anion Gap 13 Estim Creat Clear Calc 116.6 Estimated GFR > 60 Random Glucose 89 Calcium 8.3 L Magnesium 1.9 Total Bilirubin 1.0 AST 41 H ALT 25 Alkaline Phosphatase 227 H Total Protein 7.0 Albumin 3.4 L Urine Color Yellow Urine Appearance Clear Urine pH 6.0 Ur Specific [place] 1.015 Urine Protein Negative Urine Glucose (UA) Negative Urine Ketones Negative Urine Blood Trace H Urine Nitrite Negative Ur Leukocyte Esterase Negative Urine RBC 6-10 H Urine WBC 0-5 Ur Squamous Epith Cells 0-2 Urine Bacteria None Seen Hyaline Casts 0-2 Urine Opiates Screen Not Detected Ur Buprenorphine Scrn Not Detected Ur Oxycodone Screen Not Detected Urine Methadone Screen Positive H Urine Fentanyl Screen POSITIVE H Ur Barbiturates Screen Not Detected Ur Phencyclidine Scrn Not Detected Ur Amphetamines Screen Not Detected U Benzodiazepines Scrn Not Detected Urine Cocaine Screen POSITIVE H U Marijuana (THC) Screen Not Detected ECG Attestation: I personally reviewed and interpreted this ECG as follows: (Normal sinus rhythm, incomplete right bundle branch block, prolonged QT) Prior ECG tracings: available for review Imaging Radiologist's Impressions: CTA IMPRESSION: 1. No pulmonary emboli. No acute aortic syndrome. Lungs are grossly clear. 2. Small perihepatic free fluid, partially imaged, correlate with dedicated abdominal imaging. 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 Patient had left prior to having CTA to rule out PE noting patient's history and noncompliance with Eliquis. Patient did return today and chest CTA is negative for PE with no acute aortic syndrome. Lungs are considered clear. There is some small perihepatic free fluid which should be correlated with the abdominal imaging. Additional concerns on arrival included hemoptysis with previously identified mitral valve vegetation and stenosis of tricuspid valve prosthesis. Patient also having extensive abdominal distention/ ascits with known untreated HEP C and cirrhosis. Possible cellulitis in left lower extremity. Elevated D-dimer CTA completed and negative for PE Lower extremity Dopplers will be repeated Patient has history of DVT and PE and was supposed to be on Eliquis but is noncompliant Cough with hemoptysis Hold Eliquis, No NSAIDS Maybe secondary to known tricuspid valve prosthesis stenosis and mitral valve vegetation Monitor H&H Pulmonary consulted TB screen pending Chronic Anemia H/H rechecked in ED, 7.7/.8 from 7./.2No indication for transfusion at this time Stool for occult ordered Protonix ordered Mitral valve vegetation with tricuspid valve prosthesis stenosis Cardiology consulted Echo ordered Secondary to history of IV drug abuse and patient continues to use but has been seeking detox Unable to anticoagulate due to hemoptysis Left lower extremity cellulitis X-ray of left lower extremity, tib-fib is pending Venous Doppler will be repeated as patient has not been compliant with his Eliquis and has history of DVT and PE Antibiotics initiated Hepatitis-C untreated/ascites/acute encephalopathy with noted recent drug use Patient has been seen by GI and with past admissions and has not attempted follow-up for outpatient treatment CT scan of the abdomen is pending, if ascites are moderate or more consider Interventional Radiology for paracentesis Anticoagulation is on hold due to hemoptysis Ammonia level pending Patient is not using alcohol IV drug abuse Patient normally on methadone 120 mg daily, doses confirmation is pending Toxicology screen positive for fentanyl, heroin and cocaine Patient has been seeking outpatient help with [facility] and now [place] for detox Patient has insight as to the severity of his health concerns related to IV drug abuse including his mitral valve vegetation and stenosis of the tricuspid valve prosthesis Patient states being homeless is making his ability to stop using so much harder Case management consulted DVT prophylaxis: Eliquis held due to hemoptysis Med rec pending Full Code status Quality Stroke Does the patient have a stroke diagnosis?: No Reason for No Anti-thrombotic by Day Two: Contraindicated VTE Prior VTE?: No VTE Risk Level:: Medical - moderate - high VTE Device Contraindication: N/A - Device Ordered VTE Drug Contraindication: Treatment Not Indicated
[2025-06-07 01:13] LABS: Hematocrit 26.8 % (42.0-52.0); Hemoglobin 7.7 g/dl (14.0-18.0)
[2025-06-07 04:18] LABS: Ammonia 59 umol/L (13-55)
--- NOTE | 2025-06-07 04:22 | PC.NURSE ---
Per ot request, this RN called and spoke with patient's mother to let her know what is going on with patient's permission.
[2025-06-07 04:56] LABS: Hemoglobin 7.9 g/dl (14.0-18.0); NRBC Abs Auto 0.000 X10*3/uL (0.0-0.012); NRBC Pct Auto 0.0 /100WBC (0.0-0.2); PLT ABN DIST 1
[2025-06-07 04:58] LABS: Hematocrit 27.8 % (42.0-52.0); Mean Corpuscular HGB Conc 28.4 g/dl (31.0-36.0); Mean Corpuscular Hemoglobin 20.4 pg (27.0-33.0); Mean Corpuscular Volume 71.6 fL (80.0-98.0); Platelet Count 273 X10*3/uL (160-400); Red Blood Count 3.88 X10*6/uL (4.60-5.80); White Blood Count 5.7 X10*3/uL (4.8-10.8)
[2025-06-07 05:19] LABS: Anion Gap 15 (12-20); Blood Urea Nitrogen 21 mg/dL (9-16); Calcium 8.3 mg/dL (8.4-10.2); Carbon Dioxide 17 mmol/L (22-29); Chloride 112 mmol/L (96-108); Creatinine Clr Calc Pharmacy 118.1; Estimated Glomerular Filt Rate > 60; Potassium 3.6 mmol/L (3.3-5.1); Sodium 140 mmol/L (135-145)
[2025-06-07 06:05] VITALS: BP 110/72; PULSE 85; RESP 18; TEMP 37; O2SAT 96
--- NOTE | 2025-06-07 07:00 | CA_ITS ---
Transthoracic Echocardiogram Patient (Last, First, Middle): Norberto Marquez, Gender: M Date of : 1990 Age: 34 Procedure Date: 06/07/2025 Procedure Type: Transthoracic Echocardiogram Location: ER Height: 167.64 cm Weight: 64.86 kg BSA: 1.73 m2 Heart Rate: 83 bpm BP: 110 / 72 mmHg Vice President Integrated: NAVI Referring MD: Allison Mejía [facility] [employer]: Clyde Delaney MD Symptoms: Murmur/MV endocarditis/TV replacement Study Quality: Adequate ECG Rhythm: Sinus Conclusions: - 1. Limited study as patient terminated the study prematurely 2. Normal LV ejection fraction 55-60% 3. Severe right atrial enlargement next 4. Moderately dilated right ventricle with preserved systolic function 5. No clear vegetation seen on mitral valve with mild mitral regurgitation 6. Stenosis of bioprosthetic tricuspid valve with mean gradient of 10 mm Hg 7. No gross pericardial effusion Findings Procedure Information The study quality is limited by an uncooperative patient. Left Ventricle Normal left ventricular size, thickness, and systolic function. The visually estimated ejection fraction is between 55-60%. Spectral Doppler is indicative of a normal filling pattern. Right Ventricle Moderately increased right ventricular cavity size. There is normal right ventricular systolic function. Atria The left atrium is likely dilated. Interatrial shunt cannot be excluded. The right atrium is severely dilated. Aortic Valve Normal aortic valve structure and function. There is no aortic valve stenosis. There is no aortic valve regurgitation. Mitral Valve Normal mitral valve structure and function. There is mild mitral valve regurgitation. There is no mitral valve stenosis. Pulmonic Valve The pulmonic valve is likely normal. Tricuspid Valve A bioprosthetic tricuspid valve is present. The prosthetic tricuspid valve appears to be functioning abnormally. Echo findings are consistent with stenosis of the tricuspid valve prosthesis. Gradients across the prosthetic tricuspid valve are abnormal. The right ventricular systolic pressure is not calculated. Indeterminate right atrial pressure. mean gradient across the tricuspid valve of 10 mm Hg which is suggestive of stenosis Great Vessels All visible segments of the aorta are normal in size. The pulmonary artery was not well visualized. Pericardium/Pleural There is no evidence of pericardial effusion. Prior Study Comparison No significant change compared to prior study dated: 03/04/2025. Measurements 2D Linear Measurements IVSd: 1.10 0.6-0.9/0.6-1.0 cm LVIDd: 4.67 3.9-5.3/4.2-5.9 cm LVIDd Index: 2.70 2.4-3.2/2.2-3.1 cm/m2 LVIDs: 3.35 2.0-3.6 cm LVPWd: 1.05 0.7-1.1 cm LA Diam: 4.00 2.7-3.8/3.0-4.0 cm LAIDs Index: 2.31 1.5-2.3 cm/m2 LV Mass: 223.98 67-162/88-224 g LV Mass Index: 129.47 43-95/49-115 g/m2 LVOT Diam: 2.20 3.0+(-)1.3 cm 2D Systolic Function EF 4C: 61.10 >55% EF 2C: 52.00 >55% EF BiP: 56.10 >55% Mitral Valve MV Pk E: 0.70 MV PK A: 0.57 MV Decel Time: 161.00 E/A: 1.20 E'Lateral: 15.90 E'Medial: 6.31 E/E' Med: 11.10 E/E' Lat: 4.40 PHT: 47.00 MVA PHT: 4.68 Decel [place]: 4.35 Aortic Valve AoV Pk [place]: 0.95 AoV Mn [place]: 0.64 AoV VTI: 0.19 AoV Pk Grad: 4.00 Aov Mn Grad: 2.00 ISABELLA Cont.VTI: 3.84 LVOT LVOT Pk [place]: 0.84 LVOT Mn [place]: 0.55 LVOT VTI: 0.19 LVOT Pk Grad: 3.00 LVOT Mn Grad: 1.00 LVOT Diam: 2.20 LVOT Area: 3.80 Diastolic Function MV Pk E: 0.70 MV Pk A: 0.57 E/A: 1.20 E'Medial: 6.31 E/E' Med: 11.10 E' Laterial: 15.90 E/E' Lat: 4.40 Right Ventricle TAPSE (mm): 18.50 TVS' [place]: 11.00 Tricuspid Valve TV Pk [place]: 1.90 TV Mn [place]: 1.44 TV Pk Grad: 14.00 TV Mn Grad: 9.00 TR Pk [place]: 2.11 TR Pk Grad: 18.00 Great Vessels Aorta Sinus of Valsalva: 3.50 2.0-3.5 cm Ao Asc: 3.00 2.1-3.4 cm Pulmonary Valve PV Pk [place]: 0.86 Peak PV Grad: 3.00 Updated in Other Vendor System with Status of Final Clyde Delaney MD electronically signed on 06/07/2025 11:32:21 AM with status of Final
--- NOTE | 2025-06-07 07:55 | P.PNIM_ITS ---
Subjective Subjective Date of Service: 06/07/25 Interval History: Patient was seen today by bedside. Asleep. Attempted to arouse the patient, however goes back to sleep. He says he feels well. Physical Exam 2 Exam: Exam: General: A&O x3, oriented to time place person and situation. Somnolent and asleep during examination arousable. Cardiac: S1-S2 auscultated no S3-S4. Grade 3 diastolic murmur auscultated at tricuspid region, grade 3 diastolic murmur auscultated at pulmonic. Well- perfused. Respiratory: Normal breath sounds auscultated throughout all lung zones, without wheezing, rales. Normal rate. GI/ : No abdominal pain on palpation, no masses or distentions. MSK: Normal ambulation without pain at bony prominences or musculature Neurological: Normal neurological examination on overview, without obvious CN II-XII abnormalities. Vital Signs: Vital Signs: Last Vital Signs Temp 98.6 F 06/07/25 06:05 Pulse 85 06/07/25 06:05 Resp 18 06/07/25 06:05 BP 110/72 06/07/25 06:05 Pulse Ox 96 06/07/25 06:05 O2 Del Method Room Air 06/07/25 06:05 BMI result Body Mass Index 23.1 Objective Data Active Medications Acetaminophen (Acetaminophen 325 Mg Tablet) 650 mg PO Q6H PRN PRN Reason: Pain, Mild 1-3,fever,headache Albuterol/Ipratropium (Albuterol/Iprat 2.5/0.5mg 3 Ml Ampul.Neb) 3 ml INHALE Q4H PRN PRN Reason: Shortness of Breath/Wheezing Calcium Carbonate (Calcium Carbonate 750 Mg Tab.Chew) 750 mg PO Q4H PRN PRN Reason: Heartburn Cephalexin HCl (Cephalexin 500 Mg Capsule) 500 mg PO Q6H [facility] Last Admin: 06/07/25 04:19 Dose: 500 mg Documented By: BALBIR Magnesium Hydroxide (Milk Of Magnesia 30 Ml Oral.Susp) 30 ml PO DAILY PRN PRN Reason: Constipation Melatonin (Melatonin 3 Mg Tablet) 6 mg PO BEDTIME PRN PRN Reason: Insomnia Ondansetron HCl (Ondansetron Hcl 4 Mg/2 Ml Vial) 4 mg IVPUSH Q8H PRN PRN Reason: Nausea and Vomiting Pantoprazole Sodium (Pantoprazole Sodium 40 Mg/10 Ml Vial) 40 mg IVPUSH BID@0630,1360 [facility] Last Admin: 06/07/25 06:13 Dose: 40 mg Documented By: BALBIR Polyethylene Glycol (Polyethylene Glycol 3350 17 Gm Powd.Pack) 17 gm PO DAILY PRN PRN Reason: Constipation Senna (Sennosides 8.6 Mg Tablet) 17.2 mg PO BEDTIME [facility] Sodium Chloride (0.9 % Sodium Chloride Flush 3 Ml Syringe) 3 ml IVFLUSH QSHIFT [facility] Labs 06/07/25 04:04 06/07/25 04:04 Labs: Laboratory Results - last 24 hr 06/06/25 06/06/25 06/07/25 15:18 21:11 01:09 MCV 71.4 L MCH 20.5 L MCHC 28.7 L RDW 27.7 H Plt Count 263 MPV 9.7 Immature Gran % (Auto) 1.0 H Neut % (Auto) 53.9 Lymph % (Auto) 25.8 [place] % (Auto) 13.5 H Eos % (Auto) 5.0 H Baso % (Auto) 0.8 Lymph # (Auto) 1.6 [place] # (Auto) 0.8 Eos # (Auto) 0.3 Baso # (Auto) 0.1 Abs Immat Gran (auto) 0.06 H Absolute Neuts (auto) 3.4 Absolute Nucleated RBC 0.000 Nucleated RBC % (auto) 0.0 PT 25.0 H INR 2.2 H D-Dimer High Sensitivty 1296 Anion Gap 13 Estim Creat Clear Calc 116.6 Estimated GFR > 60 Random Glucose 89 Calcium 8.3 L Magnesium 1.9 Total Bilirubin 1.0 AST 41 H ALT 25 Alkaline Phosphatase 227 H Ammonia Total Creatine Kinase Total Protein 7.0 Albumin 3.4 L Urine Color Yellow Urine Appearance Clear Urine pH 6.0 Ur Specific [place] 1.015 Urine Protein Negative Urine Glucose (UA) Negative Urine Ketones Negative Urine Blood Trace H Urine Nitrite Negative Ur Leukocyte Esterase Negative Urine RBC 6-10 H Urine WBC 0-5 Ur Squamous Epith Cells 0-2 Urine Bacteria None Seen Hyaline Casts 0-2 Urine Opiates Screen Not Detected Ur Buprenorphine Scrn Not Detected Ur Oxycodone Screen Not Detected Urine Methadone Screen Positive H Urine Fentanyl Screen POSITIVE H Ur Barbiturates Screen Not Detected Ur Phencyclidine Scrn Not Detected Ur Amphetamines Screen Not Detected U Benzodiazepines Scrn Not Detected Urine Cocaine Screen POSITIVE H U Marijuana (THC) Screen Not Detected Blood Type O Positive Antibody Screen NEGATIVE 06/07/25 04:04 MCV 71.6 L MCH 20.4 L MCHC 28.4 L RDW 27.7 H Plt Count 273 MPV 9.9 Immature Gran % (Auto) Neut % (Auto) Lymph % (Auto) [place] % (Auto) Eos % (Auto) Baso % (Auto) Lymph # (Auto) [place] # (Auto) Eos # (Auto) Baso # (Auto) Abs Immat Gran (auto) Absolute Neuts (auto) Absolute Nucleated RBC 0.000 Nucleated RBC % (auto) 0.0 PT INR D-Dimer High Sensitivty Anion Gap 15 Estim Creat Clear Calc 118.1 Estimated GFR > 60 Random Glucose 94 Calcium 8.3 L Magnesium Total Bilirubin AST ALT Alkaline Phosphatase Ammonia 59 H Total Creatine Kinase 88 Total Protein Albumin Urine Color Urine Appearance Urine pH Ur Specific [place] Urine Protein Urine Glucose (UA) Urine Ketones Urine Blood Urine Nitrite Ur Leukocyte Esterase Urine RBC Urine WBC Ur Squamous Epith Cells Urine Bacteria Hyaline Casts Urine Opiates Screen Ur Buprenorphine Scrn Ur Oxycodone Screen Urine Methadone Screen Urine Fentanyl Screen Ur Barbiturates Screen Ur Phencyclidine Scrn Ur Amphetamines Screen U Benzodiazepines Scrn Urine Cocaine Screen U Marijuana (THC) Screen Blood Type Antibody Screen Assessment and Plan (1) Active intravenous drug use: Status: Acute (2) Substance abuse: Status: Acute (3) Heart failure with mildly reduced ejection fraction: Status: Acute (4) Right heart failure: Status: Acute (5) Prosthetic valve malfunction: Status: Acute (6) Mitral valve vegetation: Status: Acute (7) Tricuspid valve vegetation: Status: Acute (8) Endocarditis: Status: Acute (9) Pulmonary embolism: Status: Acute (10) HCV (hepatitis C virus): Status: Acute (11) Ascites: Status: Acute (12) Cellulitis of left leg: Status: Acute (13) Cough with hemoptysis: Status: Acute Plan 34-year-old male with a background history of PSUD/IVDU (heroin, fentanyl, cocaine), endocarditis s/p bioprosthetic tricuspid valve replacement 2019, septic pulmonary emboli and empyema, cardiomyopathy, hepatic cirrhosis, DVT/PE noncompliance apixaban, untreated chronic hepatitis-C, active mitral valve endocarditis (no treatment) and tricuspid valve stenosis, homelessness, presents to the hospital with hemoptysis and abdominal distention & actively intoxicated (heroin, fentanyl, cocaine), admitted with complex active medical issues: Hemoptysis in the setting of hepatic cirrhosis, Active mitral valve endocarditis, active substance use disorder (heroin/fentanyl/cocaine), left lower extremity cellulitis with possible DVT. Hemoptysis Patient presenting to the hospital with complaints of hemoptysis. Actively using cocaine. Initial suspicion possibly secondary to pulmonary embolism, however CTA negative. Possibly secondary to nasopharyngeal mucosal irritation/bleeding in the setting of cocaine use. We will continue to monitor closely Acute DVT left lower extremity Possible thrombophlebitis History DVT History of pulmonary embolism (septic) Elevated D-dimer, CTA negative for pulmonary embolism. History of noncompliance with apixaban/anticoagulation Patient has a history of homelessness, and represents an elevated risk for TB PLAN - restart apixaban - monitor H&H - pulmonary recommendations appreciated - tuberculosis testing performed; CT negative. Active mitral valve endocarditis Tricuspid valve stenosis Prior bioprosthetic tricuspid valve replacement (endocarditis 2019) Cardiomyopathy Patient has been noncompliant with care, medications, follow-up. Intervention performed in 2020 for infective endocarditis with tricuspid valve vegetation s/p bioprosthetic replacement. Repeat echocardiography today revealing severe tricuspid valve stenosis, elevated right cardiac pressures. EF presumed normal until formal report. PLAN - cardiology evaluated the patient via curbside; greatly appreciate input. We will consult for formal interventions if appropriate - resume apixaban - monitor H&H - monitor BMP and BNP - I/O q.6 - Monitor blood cultures Hepatic cirrhosis Congestive hepatopathy Untreated hepatitis-C Abdominal distension/Ascites Hepatic encephalopathy grade 1-2 Patient has identified hepatic cirrhosis. No large volume ascites identified. Likely secondary to congestive hepatopathy in the setting of right ventricular failure and elevated RV pressure is in the setting of severe tricuspid valve stenosis. Other obvious causative etiologies include untreated hepatitis-C infection; noncompliant with follow-up and intervention. Regarding hepatic encephalopathy, the patient has no overt asterixis, however is somnolent and tired. This could be secondary to recent use of heroin/fentanyl versus methadone. PLAN - await CT abdomen - start lactulose - start rifaximin - monitor mental status closely Left lower extremity cellulitis Currently on antibiotics for left lower extremity cellulitis. Possible superimposed component of thrombophlebitis May also have isolated underlying DVT. PLAN - continue antibiotics - await ultrasound lower extremity Active polysubstance use disorder Heroin and fentanyl abuse Cocaine abuse Patient has been seeking outpatient help with [facility] and now [facility] for detox Patient has insight as to the severity of his health concerns related to IV drug abuse including his mitral valve vegetation and stenosis of the tricuspid valve prosthesis Patient states being homeless is making his ability to stop using so much harder Case management consulted PLAN - Methadone 120 mg OD p.o.; dose confirmed - addiction medicine consultation - [facility] - C[employer] - VTE: Apixaban - CODE STATUS: Full code - DIET: Regular Total time managing care of this patient today: 45 minutes. Quality Stroke Does the patient have a stroke diagnosis?: No Reason for No Anti-thrombotic by Day Two: Contraindicated VTE Prior VTE?: No VTE Risk Level:: Medical - moderate - high VTE Device Contraindication: N/A - Device Ordered VTE Drug Contraindication: Treatment Not Indicated
--- NOTE | 2025-06-07 08:48 | PM.CNPUL ---
History of Present Illness History of Present Illness Consult date: 06/07/25 Chief complaint: hemoptysis Narrative: This is an inpatient pulmonary consultation. The patient is a 34-year-old male with hemoptysis. His has a PMH significant for?continuing polysubstance use disorder with IVDU (cocaine, heroin, fentanyl), endocarditis s/p bioprosthetic tricuspid valve replacement 2019 complicated by TV valve stenosis, septic pulmonary emboli and empyema, 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 Patient had left prior to having CTA to rule out PE noting patient's history and noncompliance with Eliquis. Patient did return today and chest CTA is negative for PE with no acute aortic syndrome. Lungs are considered clear. There is some small perihepatic free fluid which should be correlated with the abdominal imaging. Additional concerns on arrival included hemoptysis with previously identified mitral valve vegetation and stenosis of tricuspid valve prosthesis. Patient also having extensive abdominal distention. Possible cellulitis in left lower extremity. Overall the patient is feeling little bit better now. He did cough up some blood before this morning which was darker blood. I did have him cough while was in the room and the patient was not able to bring up any phlegm or congestion which is reassuring. He is still has some left-sided pleuritic chest discomfort. Denies any shortness of breath he is sitting comfortably. I did review his CT scan of the chest. Appears to have some areas of mosaic pattern and ground-glass appearance suggesting pneumonitis. Likely related to his inhaled illegal drugs. Likely a component of ?crack lung ?. Ultimately resulting in a component of diffuse alveolar hemorrhage secondary to the inflammation. No evidence to suggest tuberculosis based on the CAT scan findings. The patient does not need to have TB precautions based on the fact that he does not have any findings in the CAT scans that will suggest active tuberculosis. Will go ahead and treat the patient for hypersensitivity pneumonitis and also lower respiratory infection. The TB precautions can be removed at this time as we have a likely diagnosis and no suspicion for active tuberculosis. Review of Systems Constitutional: Constitutional: Denies fever(s) Eyes: Eyes: Reports no additional eye complaints ENT: Reports system reviewed and no additional complaints, except as documented Cardiovascular: Cardiovascular: Reports chest pain Respiratory: Respiratory: Reports cough, Reports hemoptysis, Reports pain on inspiration, Reports pain with cough and Denies wheezing Gastrointestinal: Gastrointestinal: Reports no additional gastrointestinal complaints Musculoskeletal: Musculoskeletal: Reports no additional musculoskeletal complaints Hematologic/Lymphatic: Hematologic/Lymphatic: Reports no additional hematologic/lymphatic complaints Allergic/Immunologic: Allergic/Immunologic: Denies wheezing PMFSH Past Medical History Medical History (Updated 06/07/25 @ 08:58 by Blas Salinas MD) Hypersensitivity pneumonitis Hemoptysis Rhabdomyolysis Anemia LUCERO (acute kidney injury) Polysubstance abuse Opioid use disorder Opioid use disorder, severe, dependence Substance abuse MSSA bacteremia Bacteremia Bacteremia Right heart failure Steatosis, liver Tricuspid valve stenosis Anasarca HCV (hepatitis C virus) Endocarditis Pulmonary embolism Surgical History Surgical History S/P tricuspid valve replacement History of tricuspid valve replacement with bioprosthetic valve Social History Social History Household Members: Unknown / Unable to assess Household Members Other:: [facility] Housing: Unknown / Unable to assess Do you presently have visiting nurse or other home services: No Unable to assess alcohol history related to: Refusing to respond Alcohol intake: never Patient Tobacco Use Status: Tobacco use Unknown Tobacco use type: Cigarette Cigarette Packs Per Day: 0.5 Cigarettes Per Day: 10.0 Years Smoked: 10 Smoked in Last 30 Days: Yes Second Hand Smoke Exposure: No Use of substances other than those prescribed or required for medical reasons: No Substance Use Type: Heroin Advance Directives: Yes Advance Directives on File: Yes Advance Directives Date on File: 04/16/21 Do you have a plan to hurt others: No Plan service: No Current occupational status: unemployed Travel History Ebola Risk: Travel/Contact With Anyone From Affected Area/s: No Has Patient Experienced Ebola Symptoms: No Meds Allergies Allergy/AdvReac Type Severity Reaction Status Date / Time No Known Allergies (No Known Allergy Verified 06/06/25 14:15 Allergies*) Active Medications: Current Medications Acetaminophen (Acetaminophen 325 Mg Tablet) 650 mg PO Q6H PRN PRN Reason: Pain, Mild 1-3,fever,headache Albuterol/Ipratropium (Albuterol/Iprat 2.5/0.5mg 3 Ml Ampul.Neb) 3 ml INHALE Q4H PRN PRN Reason: Shortness of Breath/Wheezing Calcium Carbonate (Calcium Carbonate 750 Mg Tab.Chew) 750 mg PO Q4H PRN PRN Reason: Heartburn Cephalexin HCl (Cephalexin 500 Mg Capsule) 500 mg PO Q6H [facility] Last Admin: 06/07/25 04:19 Dose: 500 mg Magnesium Hydroxide (Milk Of Magnesia 30 Ml Oral.Susp) 30 ml PO DAILY PRN PRN Reason: Constipation Melatonin (Melatonin 3 Mg Tablet) 6 mg PO BEDTIME PRN PRN Reason: Insomnia Ondansetron HCl (Ondansetron Hcl 4 Mg/2 Ml Vial) 4 mg IVPUSH Q8H PRN PRN Reason: Nausea and Vomiting Pantoprazole Sodium (Pantoprazole Sodium 40 Mg/10 Ml Vial) 40 mg IVPUSH BID@0630,1630 [facility] Last Admin: 06/07/25 06:13 Dose: 40 mg Polyethylene Glycol (Polyethylene Glycol 3350 17 Gm Powd.Pack) 17 gm PO DAILY PRN PRN Reason: Constipation Senna (Sennosides 8.6 Mg Tablet) 17.2 mg PO BEDTIME [facility] Sodium Chloride (0.9 % Sodium Chloride Flush 3 Ml Syringe) 3 ml IVFLUSH QSHIFT [facility] Home Medications ?Medication ?Instructions ?Recorded ?Confirmed ?Last Taken ?Type methadone 10 mg/mL oral 115 mg PO DAILY 09/13/24 03/04/25 03/02/25 History concentrate (Methadone Intensol) magnesium oxide 400 mg PO BID 10/10/24 03/04/25 10/11/24 History albuterol sulfate 90 mcg/actuation 2 inh inhalation Q6H PRN wheezing 02/07/25 03/04/25 Unknown History breath activated powder inhaler (ProAir RespiClick) albuterol sulfate 90 mcg/actuation 1 - 2 puff inhalation Q4-6H PRN 06/07/25 Unknown History aerosol inhaler (Ventolin HFA) wheezing ferrous sulfate 325 mg (65 mg 325 mg PO Q OTHER DAY 06/07/25 Unknown History iron) tablet furosemide 20 mg tablet 20 mg PO DAILY 06/07/25 Unknown History gabapentin 100 mg capsule 200 mg PO TID 06/07/25 Unknown History hydroxyzine pamoate 50 mg capsule 50 mg PO TID PRN Anxiety 06/07/25 Unknown History sertraline 50 mg tablet 50 mg PO DAILY 06/07/25 Unknown History trazodone 50 mg tablet 50 mg PO BEDTIME 06/07/25 Unknown History Physical Exam Vital Signs: Vital Signs: Last Vital Signs Temp 98.6 F 06/07/25 06:05 Pulse 85 06/07/25 06:05 Resp 18 06/07/25 06:05 BP 110/72 06/07/25 06:05 Pulse Ox 96 06/07/25 06:05 O2 Del Method Room Air 06/07/25 06:05 BMI result Body Mass Index 23.1 Const: General: comfortable HEENT: Head: Yes normocephalic Eyes: Sclerae: sclerae normal Neck: Neck: Yes supple Resp: Effort & Inspection: normal respiratory effort Auscultation: diminished lung sounds Cardio: Heart sounds: S1 normal heart sound present and S2 normal heart sound present Extrem: General: No cyanosis Results Laboratory Findings 06/07/25 04:04 06/07/25 04:04 ABG, PT/INR, D-dimer: PT/INR, D-dimer PT 25.0 SEC (10.9-12.4) H 06/06/25 15:18 INR 2.2 (0.9-1.1) H 06/06/25 15:18 Abnormal lab findings: Abnormal Labs 06/06/25 06/06/25 06/07/25 15:18 21:11 01:09 RBC 3.81 L Hgb 7.8 L 7.7 L Hct 27.2 L 26.8 L MCV 71.4 L MCH 20.5 L MCHC 28.7 L RDW 27.7 H Immature Gran % (Auto) 1.0 H [place] % (Auto) 13.5 H Eos % (Auto) 5.0 H Abs Immat Gran (auto) 0.06 H PT 25.0 H INR 2.2 H Chloride 112 H Carbon Dioxide 20 L BUN 21 H Calcium 8.3 L AST 41 H Alkaline Phosphatase 227 H Ammonia Albumin 3.4 L Urine Blood Trace H Urine RBC 6-10 H Urine Methadone Screen Positive H Urine Fentanyl Screen POSITIVE H Urine Cocaine Screen POSITIVE H 06/07/25 04:04 RBC 3.88 L Hgb 7.9 L Hct 27.8 L MCV 71.6 L MCH 20.4 L MCHC 28.4 L RDW 27.7 H Immature Gran % (Auto) [place] % (Auto) Eos % (Auto) Abs Immat Gran (auto) PT INR Chloride 112 H Carbon Dioxide 17 L BUN 21 H Calcium 8.3 L AST Alkaline Phosphatase Ammonia 59 H Albumin Urine Blood Urine RBC Urine Methadone Screen Urine Fentanyl Screen Urine Cocaine Screen Assessment and Plan (1) Substance abuse: Status: Acute (2) Hemoptysis: Status: Acute No active hemoptysis at this time (3) Hypersensitivity pneumonitis: Status: Acute (4) Pneumonia: Qualifiers: Laterality: left Lung location: lower lobe of lung Pneumonia type: due to unspecified organism Qualified Code(s): J18.9 - Pneumonia, unspecified organism Status: Acute Plan No suspicion for active tuberculosis with no evidence of active tuberculosis i=on CT chest. Ok to remove precautions from a pulmonary standpoint. Add Doxycycline Start Prednisone 40mg daily with taper by 10mg every 3 days No active hemoptysis when evaluated the pt. OK to restart the Eliquis once his phlegm is clear of blood. H/O of prothetic valve and PE. Procedures Date of Service Date of Service: 06/07/25
[2025-06-07] MEDS: 0.9 % Sodium Chloride Flush 3 ML SYRINGE IVFLUSH ×3 (09:35→23:44)
--- NOTE | 2025-06-07 09:35 | MHC.CM.PN ---
Pt. is homeless, he goes to [facility] for PCP, he does not know which provider he sees. He is on Methadone [facility], [facility]. HCP is on file and confirmed, his mother, Brittany. DCP: may be [facility], pt. said he is willing to go if that is the rec. CM to follow for DC needs.
--- NOTE | 2025-06-07 09:46 | MHC.RECOVRN ---
TW called [facility] and verified last methadone dose given 06/06/25 @ 0848am 120mg. Pt was given no take homes. Documentation provided to pharmacy.
--- NOTE | 2025-06-07 09:57 | HE.PHANOTE ---
Pt gets 120mg from [facility], last dose was 06/06/25.
--- NOTE | 2025-06-07 11:09 | PHA.MEDREC ---
Addendum entered by Willian Marquez PharmD 06/07/25 11:14: reviewed Original Note: Pharmacy Consult ? Medication Reconciliation Pharmacy has completed the medication reconciliation. Patient is a poor historian he states he has a list of medications in his book bag that is lock up with nursing. Spoke to patient nurse Niki and confirmed there is no list in patient bag. Utilized claims to confirm med list.
--- NOTE | 2025-06-07 11:10 | PM.EVENT ---
Event Note Date of Service: 06/07/25 Event Note: Case was discussed with hospitalist team and felt that there was not much cardiac intervention required. Consult was canceled at this point in time Time Spent With Patient Time: Total time managing care of this patient today ____ minutes.
[2025-06-07 14:00] VITALS: BP 104/72; PULSE 84; RESP 14; O2SAT 97
--- NOTE | 2025-06-07 15:47 | HO.ADDICT_ITS ---
History of Present Illness Date of Service: 06/07/2021 Chief Complaint: hemoptysis Reason for Consult: OUD Sources of Information: patient interviewed and chart reviewed HPI Narrative: Patient is a 34 year old male with medical history that includes endocarditis with valve replacement, Hepattitis C with cirrhosis, and DOMINIK. Presented to ED c/o of hemoptysis, lower extremity edema and SOB--subsequently medically admitted. Patient well known to t/w via previous medical admissions. He is seen in ED room 1. He is awake, alert, engaged in interview and eating crackers. He is engaged in treatment for OUD, with [facility]. Current dose 120mg, last dose yesterday (06/06). He is unhoused at this time, sleeping wherever he can. He appears unkempt and thin. EKG with prolonged QTc 504--Mg and K WNL Past Psychiatric History: Not reviewed Review of Systems Constitutional: Reports as per HPI and Reports no additional constitutional complaints Diagnostics Vital Signs (24Hr): Vital Signs - 24 hr 06/06/25 21:12 06/06/25 22:20 06/07/25 06:05 Temperature 98.2 F 97.3 F 98.6 F Pulse Rate 79 76 85 Respiratory Rate 13 16 18 Blood Pressure 118/72 106/64 110/72 Pulse Oximetry 96 97 96 Oxygen Delivery Method Room Air Room Air Room Air 06/07/25 14:00 Temperature Pulse Rate 84 Respiratory Rate 14 Blood Pressure 104/72 Pulse Oximetry 97 Oxygen Delivery Method Room Air BMI result Body Mass Index 23.1 Labs 06/07/25 04:04 06/07/25 04:04 Labs: Laboratory Results - last 48 hr 06/06/25 06/06/25 06/07/25 15:18 21:11 01:09 WBC 6.2 RBC 3.81 L Hgb 7.8 L 7.7 L Hct 27.2 L 26.8 L MCV 71.4 L MCH 20.5 L MCHC 28.7 L RDW 27.7 H Plt Count 263 MPV 9.7 Immature Gran % (Auto) 1.0 H Neut % (Auto) 53.9 Lymph % (Auto) 25.8 Andrews % (Auto) 13.5 H Eos % (Auto) 5.0 H Baso % (Auto) 0.8 Lymph # (Auto) 1.6 Andrews # (Auto) 0.8 Eos # (Auto) 0.3 Baso # (Auto) 0.1 Abs Immat Gran (auto) 0.06 H Absolute Neuts (auto) 3.4 Absolute Nucleated RBC 0.000 Nucleated RBC % (auto) 0.0 PT 25.0 H INR 2.2 H D-Dimer High Sensitivty 1296 Sodium 141 Potassium 3.5 Chloride 112 H Carbon Dioxide 20 L Anion Gap 13 BUN 21 H Creatinine 0.79 Estim Creat Clear Calc 116.6 Estimated GFR > 60 Random Glucose 89 Calcium 8.3 L Magnesium 1.9 Total Bilirubin 1.0 AST 41 H ALT 25 Alkaline Phosphatase 227 H Ammonia Total Creatine Kinase Troponin I High Sens 3.3 D Total Protein 7.0 Albumin 3.4 L Urine Color Yellow Urine Appearance Clear Urine pH 6.0 Ur Specific [place] 1.015 Urine Protein Negative Urine Glucose (UA) Negative Urine Ketones Negative Urine Blood Trace H Urine Nitrite Negative Ur Leukocyte Esterase Negative Urine RBC 6-10 H Urine WBC 0-5 Ur Squamous Epith Cells 0-2 Urine Bacteria None Seen Hyaline Casts 0-2 Urine Opiates Screen Not Detected Ur Buprenorphine Scrn Not Detected Ur Oxycodone Screen Not Detected Urine Methadone Screen Positive H Urine Fentanyl Screen POSITIVE H Ur Barbiturates Screen Not Detected Ur Phencyclidine Scrn Not Detected Ur Amphetamines Screen Not Detected U Benzodiazepines Scrn Not Detected Urine Cocaine Screen POSITIVE H U Marijuana (THC) Screen Not Detected Blood Type O Positive Antibody Screen NEGATIVE 06/07/25 04:04 WBC 5.7 RBC 3.88 L Hgb 7.9 L Hct 27.8 L MCV 71.6 L MCH 20.4 L MCHC 28.4 L RDW 27.7 H Plt Count 273 MPV 9.9 Immature Gran % (Auto) Neut % (Auto) Lymph % (Auto) Andrews % (Auto) Eos % (Auto) Baso % (Auto) Lymph # (Auto) Andrews # (Auto) Eos # (Auto) Baso # (Auto) Abs Immat Gran (auto) Absolute Neuts (auto) Absolute Nucleated RBC 0.000 Nucleated RBC % (auto) 0.0 PT INR D-Dimer High Sensitivty Sodium 140 Potassium 3.6 Chloride 112 H Carbon Dioxide 17 L Anion Gap 15 BUN 21 H Creatinine 0.78 Estim Creat Clear Calc 118.1 Estimated GFR > 60 Random Glucose 94 Calcium 8.3 L Magnesium Total Bilirubin AST ALT Alkaline Phosphatase Ammonia 59 H Total Creatine Kinase 88 Troponin I High Sens Total Protein Albumin Urine Color Urine Appearance Urine pH Ur Specific [place] Urine Protein Urine Glucose (UA) Urine Ketones Urine Blood Urine Nitrite Ur Leukocyte Esterase Urine RBC Urine WBC Ur Squamous Epith Cells Urine Bacteria Hyaline Casts Urine Opiates Screen Ur Buprenorphine Scrn Ur Oxycodone Screen Urine Methadone Screen Urine Fentanyl Screen Ur Barbiturates Screen Ur Phencyclidine Scrn Ur Amphetamines Screen U Benzodiazepines Scrn Urine Cocaine Screen U Marijuana (THC) Screen Blood Type Antibody Screen Imaging Radiology Impressions: ITS Impressions Tibia/Fibula X-Ray 06/07/25 07:15 IMPRESSION: Normal left tibia and fibula. Electronically signed by: Cory Krishnan MD 06/07/2025 08:26 AM EDT RP Venous Duplex 06/07/25 08:50 IMPRESSION: No evidence of deep venous thrombosis involving the bilateral lower extremities. Electronically signed by: Coyr Krishnan MD 06/07/2025 09:13 AM EDT RP Mental Status Exam Mental Status Exam Patient Appearance: Unkempt Patient Orientation: Person, Place and Time Level of Consciousness: Awake, Appropriate and Alert Affect Description: Calm Speech Pattern: Clear Hallucinations: None Thought Process: Intact Thought Content: positive for Intact Judgement: Fair Medications Medications Current Medications Acetaminophen (Acetaminophen 325 Mg Tablet) 650 mg PO Q6H PRN PRN Reason: Pain, Mild 1-3,fever,headache Albuterol/Ipratropium (Albuterol/Iprat 2.5/0.5mg 3 Ml Ampul.Neb) 3 ml INHALE Q4H PRN PRN Reason: Shortness of Breath/Wheezing Calcium Carbonate (Calcium Carbonate 750 Mg Tab.Chew) 750 mg PO Q4H PRN PRN Reason: Heartburn Cephalexin HCl (Cephalexin 500 Mg Capsule) 500 mg PO Q6H [facility] Last Admin: 06/07/25 09:37 Dose: 500 mg Doxycycline Monohydrate (Doxycycline Monohydrate 100 Mg Capsule) 100 mg PO Q12H [facility] Last Admin: 06/07/25 09:37 Dose: 100 mg Magnesium Hydroxide (Milk Of Magnesia 30 Ml Oral.Susp) 30 ml PO DAILY PRN PRN Reason: Constipation Melatonin (Melatonin 3 Mg Tablet) 6 mg PO BEDTIME PRN PRN Reason: Insomnia Ondansetron HCl (Ondansetron Hcl 4 Mg/2 Ml Vial) 4 mg IVPUSH Q8H PRN PRN Reason: Nausea and Vomiting Pantoprazole Sodium (Pantoprazole Sodium 40 Mg/10 Ml Vial) 40 mg IVPUSH BID@0630,1630 [facility] Last Admin: 06/07/25 06:13 Dose: 40 mg Polyethylene Glycol (Polyethylene Glycol 3350 17 Gm Powd.Pack) 17 gm PO DAILY PRN PRN Reason: Constipation Prednisone (Prednisone 20 Mg Tablet) 40 mg PO DAILY [facility] Last Admin: 06/07/25 09:37 Dose: 40 mg Senna (Sennosides 8.6 Mg Tablet) 17.2 mg PO BEDTIME [facility] Sodium Chloride (0.9 % Sodium Chloride Flush 3 Ml Syringe) 3 ml IVFLUSH QSHIFT [facility] Last Admin: 06/07/25 09:35 Dose: 3 ml Allergies Allergies Allergy/AdvReac Type Severity Reaction Status Date / Time No Known Allergies (No Known Allergy Verified 06/06/25 14:15 Allergies*) Assessment & Plan Assessment & Plan (1) Opioid use disorder, severe, dependence: Status: Acute Code(s): F11.20 - Opioid dependence, uncomplicated Assessment and Plan: * continue methadone at home dose * will continue to follow PRN Total time managing care of this patient today __30__ minutes. [facility] Past Medical History Medical History (Updated 06/07/25 @ 08:58 by Blas Salinas MD) Hypersensitivity pneumonitis Hemoptysis Rhabdomyolysis Anemia LUCERO (acute kidney injury) Polysubstance abuse Opioid use disorder Opioid use disorder, severe, dependence Substance abuse MSSA bacteremia Bacteremia Bacteremia Right heart failure Steatosis, liver Tricuspid valve stenosis Anasarca HCV (hepatitis C virus) Endocarditis Pulmonary embolism Surgical History Surgical History S/P tricuspid valve replacement History of tricuspid valve replacement with bioprosthetic valve Social History Social History Household Members: Other Household Members Other:: retirement Housing: Homeless Do you presently have visiting nurse or other home services: No Unable to assess alcohol history related to: Refusing to respond Alcohol intake: never Patient Tobacco Use Status: Current everyday Tobacco user Tobacco use type: Cigarette Cigarette Packs Per Day: 0.5 Cigarettes Per Day: 10.0 Years Smoked: 10 Second Hand Smoke Exposure: No Substance Use Type: Heroin Advance Directives Date on File: 04/16/21 service: No Current occupational status: unemployed
[2025-06-07 16:14] VITALS: BP 107/76; PULSE 86; RESP 16; O2SAT 96
--- NOTE | 2025-06-07 16:29 | MHC.RECOVRN ---
TW met with pt to discuss current DOMINIK and concerns related to increased risk of substance use related problems after Addiction Medicine consult placed for IVDU Upon assessment pt is laying in bed lethargic, falling asleep and mumbling during interaction. He wakes intermittently to pick at food on his tray. He denies opiate withdrawal symptoms at this time and states ?I was just dosed yesterday at [facility]?.? Pt reports that he has been on MAT for ?awhile? He reports although attending the methadone clinic he resumed use of heroin and crack cocaine after his brother kicked him out approximately 8 months ago. Pt states prior to his recurrence of use he had been ?clean for maybe like a year?.? Discussed how substance use has impacted health, including negative impact on mental health and overall physical wellbeing.? Discussed and provided written education and resources for harm reduction techniques including utilizing [employer] for sterile supplies and drug testing, harm reduction techniques such as not sharing needles, utilizing a test shot when using a supply from a new supplier, and the importance of seeking medical help for wound care as well as education about the current drug supply and cutting agents used. Pt is interested in further treatment for OUD and reports he will continue MOUD at [facility] upon discharge. Pt provided a list of CSS programs to contact for after care treatment once discharged as well as information on [facility], [facility], and local NA meetings. Tw available for questions, concerns, and further support as needed.?
[2025-06-07 19:17] VITALS: BP 122/79; PULSE 92; RESP 18; TEMP 36.8; O2SAT 97
[2025-06-07 19:28] VITALS: BMI 23.9
[2025-06-07] MEDS: methADONE HCl 20 MG/2 ML ORAL.CONC 120 MG PO (20:14)
[2025-06-07 23:07] VITALS: BP 107/73; PULSE 94; RESP 18; TEMP 36.7; O2SAT 96
[2025-06-07 23:41] VITALS: PULSE 94
[2025-06-08] VITALS (7 sets, daily range): BP systolic 109–128; BP diastolic 64–74; PULSE 85–100; RESP 16–18; TEMP 36.2–37.2; O2SAT 96–98
[2025-06-08] MEDS: 0.9 % Sodium Chloride Flush 3 ML SYRINGE IVFLUSH ×3 (08:30→20:02)
[2025-06-08 11:26] LABS: Alanine Aminotransferase 21 U/L (0-40); Albumin Level 3.1 g/dL (3.5-5.0); Alkaline Phosphatase 215 U/L (39-117); Anion Gap 12 (12-20); Aspartate Amino Transferase 31 U/L (5-37); Blood Urea Nitrogen 23 mg/dL (9-16); Calcium 8.4 mg/dL (8.4-10.2); Carbon Dioxide 19 mmol/L (22-29); Chloride 110 mmol/L (96-108); Creatinine Clr Calc Pharmacy 135.5; Estimated Glomerular Filt Rate > 60; Potassium 4.0 mmol/L (3.3-5.1); Sodium 137 mmol/L (135-145); Total Protein 6.8 g/dL (6.5-8.0)
--- NOTE | 2025-06-08 14:08 | P.PNIM_ITS ---
Subjective Subjective Date of Service: 06/08/25 Interval History: Patient remains drowsy today. Able to engage minimally during examination. Denies significant pain or discomfort. The patient reports that he does not feel as well as he normally does. CT brain without IV contrast was ordered - no intracranial abnormality identified. Pulmonary consult was reviewed - recommendations greatly appreciated Review of Systems Review of Systems: Yes all other systems are reviewed and are negative Physical Exam 2 Exam: Exam: General: A&O x3, oriented to time place person and situation. Somnolent and asleep during examination arousable. Cardiac: S1-S2 auscultated no S3-S4. Grade 3 diastolic murmur auscultated at tricuspid region, grade 3 diastolic murmur auscultated at pulmonic. Well- perfused. Respiratory: Normal breath sounds auscultated throughout all lung zones, without wheezing, rales. Normal rate. GI/ : No abdominal pain on palpation, no masses or distentions. MSK: Normal ambulation without pain at bony prominences or musculature Neurological: Normal neurological examination on overview, without obvious CN II-XII abnormalities. Vital Signs: Vital Signs: Last Vital Signs Temp 97.1 F 06/08/25 12:00 Pulse 90 06/08/25 12:00 Resp 18 06/08/25 12:00 BP 122/73 06/08/25 12:00 Pulse Ox 97 06/08/25 12:00 O2 Del Method Room Air 06/08/25 12:00 BMI result Body Mass Index 23.9 Objective Data Active Medications Acetaminophen (Acetaminophen 325 Mg Tablet) 650 mg PO Q6H PRN PRN Reason: Pain, Mild 1-3,fever,headache Last Admin: 06/07/25 23:47 Dose: 650 mg Documented By: DELVIN Albuterol/Ipratropium (Albuterol/Iprat 2.5/0.5mg 3 Ml Ampul.Neb) 3 ml INHALE Q4H PRN PRN Reason: Shortness of Breath/Wheezing Calcium Carbonate (Calcium Carbonate 750 Mg Tab.Chew) 750 mg PO Q4H PRN PRN Reason: Heartburn Cephalexin HCl (Cephalexin 500 Mg Capsule) 500 mg PO Q6H [facility] Last Admin: 06/08/25 09:41 Dose: 500 mg Documented By: MARIXA Doxycycline Monohydrate (Doxycycline Monohydrate 100 Mg Capsule) 100 mg PO Q12H [facility] Last Admin: 06/08/25 09:41 Dose: 100 mg Documented By: MARIXA Magnesium Hydroxide (Milk Of Magnesia 30 Ml Oral.Susp) 30 ml PO DAILY PRN PRN Reason: Constipation Melatonin (Melatonin 3 Mg Tablet) 6 mg PO BEDTIME PRN PRN Reason: Insomnia Ondansetron HCl (Ondansetron Hcl 4 Mg/2 Ml Vial) 4 mg IVPUSH Q8H PRN PRN Reason: Nausea and Vomiting Pantoprazole Sodium (Pantoprazole Sodium 40 Mg/10 Ml Vial) 40 mg IVPUSH BID@0630,1630 [facility] Last Admin: 06/08/25 06:01 Dose: 40 mg Documented By: DELVIN Polyethylene Glycol (Polyethylene Glycol 3350 17 Gm Powd.Pack) 17 gm PO DAILY PRN PRN Reason: Constipation Prednisone (Prednisone 20 Mg Tablet) 40 mg PO DAILY [facility] Last Admin: 06/08/25 08:32 Dose: 40 mg Documented By: MARIXA Senna (Sennosides 8.6 Mg Tablet) 17.2 mg PO BEDTIME [facility] Last Admin: 06/07/25 20:15 Dose: 17.2 mg Documented By: FELICIANO Sodium Chloride (0.9 % Sodium Chloride Flush 3 Ml Syringe) 3 ml IVFLUSH QSHIFT [facility] Last Admin: 06/08/25 08:30 Dose: 3 ml Documented By: MARIXA Labs 06/07/25 04:04 06/08/25 10:47 Labs: Laboratory Results - last 24 hr 06/08/25 10:47 Anion Gap 12 Estim Creat Clear Calc 135.5 Estimated GFR > 60 Random Glucose 127 H Calcium 8.4 Total Bilirubin 0.7 AST 31 ALT 21 Alkaline Phosphatase 215 H Total Protein 6.8 Albumin 3.1 L Assessment and Plan (1) Drug abuse, IV: Status: Acute (2) Opioid use disorder, severe, dependence: Status: Acute (3) Heart failure with mildly reduced ejection fraction: Status: Acute (4) Right heart failure: Status: Acute (5) Tricuspid valve vegetation: Status: Acute (6) Mitral valve vegetation: Status: Acute (7) Tricuspid valve stenosis: Status: Acute (8) Pulmonary embolism without acute cor pulmonale: Status: Acute (9) Cellulitis of left leg: Status: Acute (10) Cough with hemoptysis: Status: Acute (11) Pneumonia: Status: Acute (12) Pneumonitis due to crack cocaine: Status: Acute Plan 34-year-old male with a background history of PSUD/IVDU (heroin, fentanyl, cocaine), endocarditis s/p bioprosthetic tricuspid valve replacement 2019, septic pulmonary emboli and empyema, cardiomyopathy, hepatic cirrhosis, DVT/PE noncompliance apixaban, untreated chronic hepatitis-C, active mitral valve endocarditis (no treatment) and tricuspid valve stenosis, homelessness, presents to the hospital with hemoptysis and abdominal distention & actively intoxicated (heroin, fentanyl, cocaine), admitted with complex active medical issues: Hemoptysis in the setting of hepatic cirrhosis, Active mitral valve endocarditis, active substance use disorder (heroin/fentanyl/cocaine), left lower extremity cellulitis with possible DVT. Hemoptysis Drug-induced pneumonitis (crack lung) Left lower lobe pneumonia Patient presenting to the hospital with complaints of hemoptysis. Actively using cocaine. Initial suspicion possibly secondary to pulmonary embolism, however CTA negative. Pulmonology consult on the patient, greatly appreciated. [place] to be secondary to multifactorial etiology including pneumonitis likely secondary to inhaled drugs & probable superimposed pneumonia. PLAN - start doxycycline 100 mg b.i.d. p.o. - start prednisone 40 mg OD p.o. (10 mg taper every 3 days) - cleared to restart Eliquis once his phlegm is clear of blood Acute DVT left lower extremity Possible thrombophlebitis History DVT History of pulmonary embolism (septic) Elevated D-dimer, CTA negative for pulmonary embolism. History of noncompliance with apixaban/anticoagulation Patient has a history of homelessness, and represents an elevated risk for TB PLAN - restart apixaban - monitor H&H - pulmonary recommendations appreciated - tuberculosis testing performed; CT negative. Active mitral valve endocarditis Tricuspid valve stenosis Prior bioprosthetic tricuspid valve replacement (endocarditis 2019) Cardiomyopathy Patient has been noncompliant with care, medications, follow-up. Intervention performed in 2019 for infective endocarditis with tricuspid valve vegetation s/p bioprosthetic replacement. Repeat echocardiography today revealing severe tricuspid valve stenosis, elevated right cardiac pressures. EF presumed normal until formal report. PLAN - cardiology evaluated the patient via curbside; greatly appreciate input. We will consult for formal interventions if appropriate - resume apixaban - monitor H&H - monitor BMP and BNP - I/O q.6 - Monitor blood cultures Hepatic cirrhosis Congestive hepatopathy Untreated hepatitis-C Abdominal distension/Ascites Hepatic encephalopathy grade 1-2 Patient has identified hepatic cirrhosis. No large volume ascites identified. Likely secondary to congestive hepatopathy in the setting of right ventricular failure and elevated RV pressure is in the setting of severe tricuspid valve stenosis. Other obvious causative etiologies include untreated hepatitis-C infection; noncompliant with follow-up and intervention. Regarding hepatic encephalopathy, the patient has no overt asterixis, however is somnolent and tired. This could be secondary to recent use of heroin/fentanyl versus methadone. PLAN - await CT abdomen - start lactulose - start rifaximin - monitor mental status closely Left lower extremity cellulitis Currently on antibiotics for left lower extremity cellulitis. Possible superimposed component of thrombophlebitis May also have isolated underlying DVT. PLAN - continue antibiotics - await ultrasound lower extremity Active polysubstance use disorder Heroin and fentanyl abuse Cocaine abuse Patient has been seeking outpatient help with [facility] and now [facility] for detox Patient has insight as to the severity of his health concerns related to IV drug abuse including his mitral valve vegetation and stenosis of the tricuspid valve prosthesis Patient states being homeless is making his ability to stop using so much harder Case management consulted PLAN - Methadone 120 mg OD p.o.; dose confirmed - addiction medicine consultation - [facility] - [facility] [employer] [employer] - VTE: Apixaban on hold due to hemoptysis. SCDs ordered (no LE DVT based on ultrasound) - CODE STATUS: Full code - DIET: Regular Total time managing care of this patient today: 45 minutes. Quality Stroke Does the patient have a stroke diagnosis?: No Reason for No Anti-thrombotic by Day Two: Contraindicated VTE Prior VTE?: No VTE Risk Level:: Medical - moderate - high VTE Device Contraindication: N/A - Device Ordered VTE Drug Contraindication: Treatment Not Indicated
[2025-06-08] MEDS: methADONE HCl 20 MG/2 ML ORAL.CONC 120 MG PO (18:26)
[2025-06-09 03:16] VITALS: BP 118/67; PULSE 87; RESP 18; TEMP 36.6; O2SAT 96
[2025-06-09 07:07] VITALS: BP 126/72; PULSE 88; RESP 18; TEMP 36.2; O2SAT 96
[2025-06-09 08:01] LABS: MANUAL DIFF FLAG NO
[2025-06-09 08:03] LABS: Hematocrit 30.2 % (42.0-52.0); Hemoglobin 8.6 g/dl (14.0-18.0); Imm Gran Abs Auto 0.16 X10*3/uL (0.00-0.03); Imm Gran Pct Auto 1.4 % (0.0-0.4); Lymphocytes Absolute Auto 2.3 X10*3/uL (1.2-4.9); Mean Corpuscular HGB Conc 28.5 g/dl (31.0-36.0); Mean Corpuscular Hemoglobin 20.3 pg (27.0-33.0); Mean Corpuscular Volume 71.4 fL (80.0-98.0); NRBC Abs Auto 0.000 X10*3/uL (0.0-0.012); NRBC Pct Auto 0.0 /100WBC (0.0-0.2); Platelet Count 298 X10*3/uL (160-400); Red Blood Count 4.23 X10*6/uL (4.60-5.80); White Blood Count 11.3 X10*3/uL (4.8-10.8)
[2025-06-09 08:19] LABS: Alanine Aminotransferase 21 U/L (0-40); Albumin Level 3.2 g/dL (3.5-5.0); Alkaline Phosphatase 212 U/L (39-117); Anion Gap 12 (12-20); Aspartate Amino Transferase 28 U/L (5-37); Blood Urea Nitrogen 28 mg/dL (9-16); Calcium 8.8 mg/dL (8.4-10.2); Carbon Dioxide 20 mmol/L (22-29); Chloride 111 mmol/L (96-108); Creatinine Clr Calc Pharmacy 116.6; Estimated Glomerular Filt Rate > 60; Potassium 3.9 mmol/L (3.3-5.1); Sodium 139 mmol/L (135-145); Total Protein 7.1 g/dL (6.5-8.0)
[2025-06-09] MEDS: 0.9 % Sodium Chloride Flush 3 ML SYRINGE IVFLUSH ×3 (09:11→22:30)
--- NOTE | 2025-06-09 10:58 | HO.ADDICTPRO ---
Subjective Subjective Date of Service: 06/09/25 Reason For Visit: hemoptysis Medical Problems Affecting Mental Status: Yes Interim History: Patient seen in follow up for OUD Patient very drowsy, reporting that he is having a hard time keeping his eyes open Denies any discomfort--discussed methadone dosing, agreeable to decreased dose while feeling this way Per RN patient declined lactulose earlier in the AM, t/w encouraged patient to take medication. Review of Systems Acute medical concerns: Yes Review of Systems Constitutional: Reports as per HPI Mental Status Exam Mental Status Exam Level of Consciousness: Drowsy Patient Behavior: Appropriate and Cooperative Affect Description: Calm Speech Pattern: Clear Hallucinations: None Thought Process: Intact Thought Content: positive for Intact Judgement: Fair Diagnostics Vital Signs (24Hr): Vital Signs - 24 hr 06/08/25 12:00 06/08/25 15:52 06/08/25 19:25 Temperature 97.1 F 97.5 F 98.4 F Pulse Rate 90 94 100 Respiratory Rate 18 18 16 Blood Pressure 122/73 128/74 117/66 Pulse Oximetry 97 97 96 Oxygen Delivery Method Room Air Room Air Room Air 06/08/25 23:08 06/09/25 03:16 06/09/25 07:07 Temperature 98.4 F 97.8 F 97.1 F Pulse Rate 90 87 88 Respiratory Rate 16 18 18 Blood Pressure 116/71 118/67 126/72 Pulse Oximetry 96 96 96 Oxygen Delivery Method Room Air Room Air Room Air BMI result Body Mass Index 23.9 Labs 06/09/25 07:17 06/09/25 07:17 Labs: Laboratory Results - last 48 hr 06/08/25 06/09/25 06/09/25 10:47 07:17 07:17 WBC 11.3 H Cancelled RBC 4.23 L Hgb Hct MCV MCH MCHC RDW Plt Count MPV Immature Gran % (Auto) Neut % (Auto) Lymph % (Auto) [place] % (Auto) Eos % (Auto) Baso % (Auto) Lymph # (Auto) [place] # (Auto) Eos # (Auto) Baso # (Auto) Abs Immat Gran (auto) Absolute Neuts (auto) Absolute Nucleated RBC Nucleated RBC % (auto) Hold Purple Top Sodium 137 Potassium 4.0 Chloride 110 H Carbon Dioxide 19 L Anion Gap 12 BUN 23 H Creatinine 0.68 Estim Creat Clear Calc 135.5 Estimated GFR > 60 Random Glucose 127 H Calcium 8.4 Total Bilirubin 0.7 AST 31 ALT 21 Alkaline Phosphatase 215 H Total Protein 6.8 Albumin 3.1 L 06/09/25 06/09/25 06/09/25 07:17 07:17 07:17 WBC RBC Cancelled Hgb 8.6 L Cancelled Hct 30.2 L Cancelled MCV 71.4 L MCH MCHC RDW Plt Count MPV Immature Gran % (Auto) Neut % (Auto) Lymph % (Auto) [place] % (Auto) Eos % (Auto) Baso % (Auto) Lymph # (Auto) [place] # (Auto) Eos # (Auto) Baso # (Auto) Abs Immat Gran (auto) Absolute Neuts (auto) Absolute Nucleated RBC Nucleated RBC % (auto) Hold Purple Top Sodium Potassium Chloride Carbon Dioxide Anion Gap BUN Creatinine Estim Creat Clear Calc Estimated GFR Random Glucose Calcium Total Bilirubin AST ALT Alkaline Phosphatase Total Protein Albumin 06/09/25 06/09/25 06/09/25 07:17 07:17 07:17 WBC RBC Hgb Hct MCV Cancelled MCH 20.3 L Cancelled MCHC 28.5 L Cancelled RDW 27.4 H Plt Count MPV Immature Gran % (Auto) Neut % (Auto) Lymph % (Auto) [place] % (Auto) Eos % (Auto) Baso % (Auto) Lymph # (Auto) [place] # (Auto) Eos # (Auto) Baso # (Auto) Abs Immat Gran (auto) Absolute Neuts (auto) Absolute Nucleated RBC Nucleated RBC % (auto) Hold Purple Top Sodium Potassium Chloride Carbon Dioxide Anion Gap BUN Creatinine Estim Creat Clear Calc Estimated GFR Random Glucose Calcium Total Bilirubin AST ALT Alkaline Phosphatase Total Protein Albumin 06/09/25 06/09/25 06/09/25 07:17 07:17 07:17 WBC RBC Hgb Hct MCV MCH MCHC RDW Cancelled Plt Count 298 Cancelled MPV 9.8 Cancelled Immature Gran % (Auto) 1.4 H Neut % (Auto) Lymph % (Auto) [place] % (Auto) Eos % (Auto) Baso % (Auto) Lymph # (Auto) [place] # (Auto) Eos # (Auto) Baso # (Auto) Abs Immat Gran (auto) Absolute Neuts (auto) Absolute Nucleated RBC Nucleated RBC % (auto) Hold Purple Top Sodium Potassium Chloride Carbon Dioxide Anion Gap BUN Creatinine Estim Creat Clear Calc Estimated GFR Random Glucose Calcium Total Bilirubin AST ALT Alkaline Phosphatase Total Protein Albumin 06/09/25 06/09/25 06/09/25 07:17 07:17 07:17 WBC RBC Hgb Hct MCV MCH MCHC RDW Plt Count MPV Immature Gran % (Auto) Cancelled Neut % (Auto) 66.7 Cancelled Lymph % (Auto) 20.6 Cancelled [place] % (Auto) 9.1 Eos % (Auto) Baso % (Auto) Lymph # (Auto) [place] # (Auto) Eos # (Auto) Baso # (Auto) Abs Immat Gran (auto) Absolute Neuts (auto) Absolute Nucleated RBC Nucleated RBC % (auto) Hold Purple Top Sodium Potassium Chloride Carbon Dioxide Anion Gap BUN Creatinine Estim Creat Clear Calc Estimated GFR Random Glucose Calcium Total Bilirubin AST ALT Alkaline Phosphatase Total Protein Albumin 06/09/25 06/09/25 06/09/25 07:17 07:17 07:17 WBC RBC Hgb Hct MCV MCH MCHC RDW Plt Count MPV Immature Gran % (Auto) Neut % (Auto) Lymph % (Auto) [place] % (Auto) Cancelled Eos % (Auto) 1.7 Cancelled Baso % (Auto) 0.5 Cancelled Lymph # (Auto) 2.3 [place] # (Auto) Eos # (Auto) Baso # (Auto) Abs Immat Gran (auto) Absolute Neuts (auto) Absolute Nucleated RBC Nucleated RBC % (auto) Hold Purple Top Sodium Potassium Chloride Carbon Dioxide Anion Gap BUN Creatinine Estim Creat Clear Calc Estimated GFR Random Glucose Calcium Total Bilirubin AST ALT Alkaline Phosphatase Total Protein Albumin 06/09/25 06/09/25 06/09/25 07:17 07:17 07:17 WBC RBC Hgb Hct MCV MCH MCHC RDW Plt Count MPV Immature Gran % (Auto) Neut % (Auto) Lymph % (Auto) [place] % (Auto) Eos % (Auto) Baso % (Auto) Lymph # (Auto) Cancelled [place] # (Auto) 1.0 Cancelled Eos # (Auto) 0.2 Cancelled Baso # (Auto) 0.1 Abs Immat Gran (auto) Absolute Neuts (auto) Absolute Nucleated RBC Nucleated RBC % (auto) Hold Purple Top Sodium Potassium Chloride Carbon Dioxide Anion Gap BUN Creatinine Estim Creat Clear Calc Estimated GFR Random Glucose Calcium Total Bilirubin AST ALT Alkaline Phosphatase Total Protein Albumin 06/09/25 06/09/25 06/09/25 07:17 07:17 07:17 WBC RBC Hgb Hct MCV MCH MCHC RDW Plt Count MPV Immature Gran % (Auto) Neut % (Auto) Lymph % (Auto) [place] % (Auto) Eos % (Auto) Baso % (Auto) Lymph # (Auto) [place] # (Auto) Eos # (Auto) Baso # (Auto) Cancelled Abs Immat Gran (auto) 0.16 H Cancelled Absolute Neuts (auto) 7.6 Cancelled Absolute Nucleated RBC 0.000 Nucleated RBC % (auto) Hold Purple Top Sodium Potassium Chloride Carbon Dioxide Anion Gap BUN Creatinine Estim Creat Clear Calc Estimated GFR Random Glucose Calcium Total Bilirubin AST ALT Alkaline Phosphatase Total Protein Albumin 06/09/25 06/09/25 07:17 07:17 WBC RBC Hgb Hct MCV MCH MCHC RDW Plt Count MPV Immature Gran % (Auto) Neut % (Auto) Lymph % (Auto) [place] % (Auto) Eos % (Auto) Baso % (Auto) Lymph # (Auto) [place] # (Auto) Eos # (Auto) Baso # (Auto) Abs Immat Gran (auto) Absolute Neuts (auto) Absolute Nucleated RBC Cancelled Nucleated RBC % (auto) 0.0 Cancelled Hold Purple Top SEE NOTE Sodium 139 Potassium 3.9 Chloride 111 H Carbon Dioxide 20 L Anion Gap 12 BUN 28 H Creatinine 0.79 Estim Creat Clear Calc 116.6 Estimated GFR > 60 Random Glucose 97 Calcium 8.8 Total Bilirubin 0.7 AST 28 ALT 21 Alkaline Phosphatase 212 H Total Protein 7.1 Albumin 3.2 L Imaging Radiology Impressions: ITS Impressions Tibia/Fibula X-Ray 06/07/25 07:15 IMPRESSION: Normal left tibia and fibula. Electronically signed by: Cory Krishnan MD 06/07/2025 08:26 AM EDT RP Venous Duplex 06/07/25 08:50 IMPRESSION: No evidence of deep venous thrombosis involving the bilateral lower extremities. Electronically signed by: Cory Krishnan MD 06/07/2025 09:13 AM EDT Abdomen/Pelvis CT 06/07/25 10:44 IMPRESSION: There is evidence of portal hypertension. There is hepatomegaly with recannulization of the umbilical vein and a finely nodular liver surface suggesting cirrhosis and mild to moderate ascites which is improved since the prior. Constipation. Fleischner guidelines were followed. Electronically signed by: Jarred Escudero MD 06/08/2025 12:24 PM EDT RP Head CT 06/08/25 10:44 IMPRESSION: No acute intracranial abnormality. Electronically signed by: Jarred Escudero MD 06/08/2025 12:15 PM EDT RP Medications Medications Current Medications Acetaminophen (Acetaminophen 325 Mg Tablet) 650 mg PO Q6H PRN PRN Reason: Pain, Mild 1-3,fever,headache Last Admin: 06/07/25 23:47 Dose: 650 mg Albuterol/Ipratropium (Albuterol/Iprat 2.5/0.5mg 3 Ml Ampul.Neb) 3 ml INHALE Q4H PRN PRN Reason: Shortness of Breath/Wheezing Calcium Carbonate (Calcium Carbonate 750 Mg Tab.Chew) 750 mg PO Q4H PRN PRN Reason: Heartburn Cephalexin HCl (Cephalexin 500 Mg Capsule) 500 mg PO Q6H [facility] Last Admin: 06/09/25 09:07 Dose: 500 mg Doxycycline Monohydrate (Doxycycline Monohydrate 100 Mg Capsule) 100 mg PO Q12H [facility] Last Admin: 06/09/25 09:08 Dose: 100 mg Lactulose (Lactulose 20 Gm/30 Ml Solution) 10 gm PO DAILY [facility] Last Admin: 06/09/25 09:07 Dose: 10 gm Magnesium Hydroxide (Milk Of Magnesia 30 Ml Oral.Susp) 30 ml PO DAILY PRN PRN Reason: Constipation Melatonin (Melatonin 3 Mg Tablet) 6 mg PO BEDTIME PRN PRN Reason: Insomnia Ondansetron HCl (Ondansetron Hcl 4 Mg/2 Ml Vial) 4 mg IVPUSH Q8H PRN PRN Reason: Nausea and Vomiting Pantoprazole Sodium (Pantoprazole Sodium 40 Mg/10 Ml Vial) 40 mg IVPUSH BID@0630,1630 [facility] Last Admin: 06/09/25 05:18 Dose: 40 mg Polyethylene Glycol (Polyethylene Glycol 3350 17 Gm Powd.Pack) 17 gm PO DAILY PRN PRN Reason: Constipation Prednisone (Prednisone 20 Mg Tablet) 40 mg PO DAILY [facility] Last Admin: 06/09/25 09:07 Dose: 40 mg Rifaximin (Rifaximin 550 Mg Tablet) 550 mg PO BID [facility] Last Admin: 06/09/25 09:07 Dose: 550 mg Senna (Sennosides 8.6 Mg Tablet) 17.2 mg PO BEDTIME [facility] Last Admin: 06/08/25 19:58 Dose: 17.2 mg Sodium Chloride (0.9 % Sodium Chloride Flush 3 Ml Syringe) 3 ml IVFLUSH QSHIFT [facility] Last Admin: 06/09/25 09:11 Dose: 3 ml Allergies Allergies Allergy/AdvReac Type Severity Reaction Status Date / Time No Known Allergies (No Known Allergy Verified 06/06/25 14:15 Allergies*) Assessment & Plan Assessment & Plan (1) Opioid use disorder, severe, dependence: Status: Acute Code(s): F11.20 - Opioid dependence, uncomplicated Assessment and Plan: will split/reduce methadone dose until mentation improves 60mg today recheck ammonia --encouraged patient to take lactulose as ordered recheck mg will continue to follow Total time managing care of this patient today ___30_ minutes.
[2025-06-09 11:08] VITALS: BP 124/60; PULSE 95; RESP 18; TEMP 36.3; O2SAT 97
--- NOTE | 2025-06-09 12:18 | MHC.CM.PN ---
EMR REVIEWED, PT W.DRUG INDUCED PNEUMONITIS/PNA/ASCITES, PER HOSPITALIST PT NOT YET READY FOR DC AND ANTIC APPROX 2 MORE DAYS, INPT, RECOVERY NURSE WORKING ON [facility] REFERRALS FOR PT, CM WILL CONT TO FOLLOW DC NEEDS.
[2025-06-09] MEDS: methADONE HCl 20 MG/2 ML ORAL.CONC 60 MG PO (14:12)
--- NOTE | 2025-06-09 14:56 | P.PNIM_ITS ---
Subjective Subjective Date of Service: 06/09/25 Interval History: Pleasant, awake and alert by bedside today. The patient requested an update regarding his medical status. Full conversation regarding reason for admission, management and treatment plan was discussed with patient. Pathophysiologically overview was provided to patient. The patient also expressed concern with remaining in [place], due to high possibility of relapse. A lot of social exposure to drugs in community. Fears of relapse were expressed and discussed in depth. The patient wishes to seek inpatient rehabilitation Review of Systems Review of Systems: Yes all other systems are reviewed and are negative Physical Exam 2 Exam: Exam: General: A&O x3, oriented to time place person and situation. Communicative and pleasant. Cardiac: S1-S2 auscultated no S3-S4. Grade 3 diastolic murmur auscultated at tricuspid region, grade 3 diastolic murmur auscultated at pulmonic. Well- perfused. JVP identified. Respiratory: Normal breath sounds auscultated throughout all lung zones, without wheezing, rales. Normal rate. GI/ : No abdominal pain on palpation, no masses. Abdomen distended on palpation, however no ascites was identified. Hepatosplenomegaly identified on physical examination. MSK: Normal ambulation without pain at bony prominences or musculature. Lower extremities: Multiple varicose veins identified and lower extremities, with evidence of lipodermatosclerosis. Left anterior anthony scabbed wound, without pustules, fluctuance. Neurological: Normal neurological examination on overview, without obvious CN II-XII abnormalities. Vital Signs: Vital Signs: Last Vital Signs Temp 97.3 F 06/09/25 11:08 Pulse 95 06/09/25 11:08 Resp 18 06/09/25 11:08 BP 124/60 06/09/25 11:08 Pulse Ox 97 06/09/25 11:08 O2 Del Method Room Air 06/09/25 11:08 BMI result Body Mass Index 23.9 Objective Data Active Medications Acetaminophen (Acetaminophen 325 Mg Tablet) 650 mg PO Q6H PRN PRN Reason: Pain, Mild 1-3,fever,headache Last Admin: 06/07/25 23:47 Dose: 650 mg Documented By: DELVIN Albuterol/Ipratropium (Albuterol/Iprat 2.5/0.5mg 3 Ml Ampul.Neb) 3 ml INHALE Q4H PRN PRN Reason: Shortness of Breath/Wheezing Calcium Carbonate (Calcium Carbonate 750 Mg Tab.Chew) 750 mg PO Q4H PRN PRN Reason: Heartburn Cephalexin HCl (Cephalexin 500 Mg Capsule) 500 mg PO Q6H [facility] Last Admin: 06/09/25 09:07 Dose: 500 mg Documented By: [place] Doxycycline Monohydrate (Doxycycline Monohydrate 100 Mg Capsule) 100 mg PO Q12H [facility] Last Admin: 06/09/25 09:08 Dose: 100 mg Documented By: [place] Lactulose (Lactulose 20 Gm/30 Ml Solution) 10 gm PO DAILY [facility] Last Admin: 06/09/25 09:07 Dose: 10 gm Documented By: [place] Magnesium Hydroxide (Milk Of Magnesia 30 Ml Oral.Susp) 30 ml PO DAILY PRN PRN Reason: Constipation Melatonin (Melatonin 3 Mg Tablet) 6 mg PO BEDTIME PRN PRN Reason: Insomnia Ondansetron HCl (Ondansetron Hcl 4 Mg/2 Ml Vial) 4 mg IVPUSH Q8H PRN PRN Reason: Nausea and Vomiting Pantoprazole Sodium (Pantoprazole Sodium 40 Mg/10 Ml Vial) 40 mg IVPUSH BID@0630,1630 [facility] Last Admin: 06/09/25 05:18 Dose: 40 mg Documented By: KARIME Polyethylene Glycol (Polyethylene Glycol 3350 17 Gm Powd.Pack) 17 gm PO DAILY PRN PRN Reason: Constipation Prednisone (Prednisone 20 Mg Tablet) 40 mg PO DAILY [facility] Last Admin: 06/09/25 09:07 Dose: 40 mg Documented By: [place] Rifaximin (Rifaximin 550 Mg Tablet) 550 mg PO BID [facility] Last Admin: 06/09/25 09:07 Dose: 550 mg Documented By: [place] Senna (Sennosides 8.6 Mg Tablet) 17.2 mg PO BEDTIME [facility] Last Admin: 06/08/25 19:58 Dose: 17.2 mg Documented By: KARIME Sodium Chloride (0.9 % Sodium Chloride Flush 3 Ml Syringe) 3 ml IVFLUSH QSHIFT [facility] Last Admin: 06/09/25 09:11 Dose: 3 ml Documented By: [place] Labs 06/09/25 07:17 06/09/25 07:17 Labs: Laboratory Results - last 24 hr 06/09/25 06/09/25 06/09/25 07:17 07:17 07:17 MCV 71.4 L Cancelled MCH 20.3 L Cancelled MCHC 28.5 L RDW Plt Count MPV Immature Gran % (Auto) Neut % (Auto) Lymph % (Auto) [place] % (Auto) Eos % (Auto) Baso % (Auto) Lymph # (Auto) [place] # (Auto) Eos # (Auto) Baso # (Auto) Abs Immat Gran (auto) Absolute Neuts (auto) Absolute Nucleated RBC Nucleated RBC % (auto) Hold Purple Top Anion Gap Estim Creat Clear Calc Estimated GFR Random Glucose Calcium Total Bilirubin AST ALT Alkaline Phosphatase Total Protein Albumin 06/09/25 06/09/25 06/09/25 07:17 07:17 07:17 MCV MCH MCHC Cancelled RDW 27.4 H Cancelled Plt Count 298 Cancelled MPV 9.8 Immature Gran % (Auto) Neut % (Auto) Lymph % (Auto) [place] % (Auto) Eos % (Auto) Baso % (Auto) Lymph # (Auto) [place] # (Auto) Eos # (Auto) Baso # (Auto) Abs Immat Gran (auto) Absolute Neuts (auto) Absolute Nucleated RBC Nucleated RBC % (auto) Hold Purple Top Anion Gap Estim Creat Clear Calc Estimated GFR Random Glucose Calcium Total Bilirubin AST ALT Alkaline Phosphatase Total Protein Albumin 06/09/25 06/09/25 06/09/25 07:17 07:17 07:17 MCV MCH MCHC RDW Plt Count MPV Cancelled Immature Gran % (Auto) 1.4 H Cancelled Neut % (Auto) 66.7 Cancelled Lymph % (Auto) 20.6 [place] % (Auto) Eos % (Auto) Baso % (Auto) Lymph # (Auto) [place] # (Auto) Eos # (Auto) Baso # (Auto) Abs Immat Gran (auto) Absolute Neuts (auto) Absolute Nucleated RBC Nucleated RBC % (auto) Hold Purple Top Anion Gap Estim Creat Clear Calc Estimated GFR Random Glucose Calcium Total Bilirubin AST ALT Alkaline Phosphatase Total Protein Albumin 06/09/25 06/09/25 06/09/25 07:17 07:17 07:17 MCV MCH MCHC RDW Plt Count MPV Immature Gran % (Auto) Neut % (Auto) Lymph % (Auto) Cancelled [place] % (Auto) 9.1 Cancelled Eos % (Auto) 1.7 Cancelled Baso % (Auto) 0.5 Lymph # (Auto) [place] # (Auto) Eos # (Auto) Baso # (Auto) Abs Immat Gran (auto) Absolute Neuts (auto) Absolute Nucleated RBC Nucleated RBC % (auto) Hold Purple Top Anion Gap Estim Creat Clear Calc Estimated GFR Random Glucose Calcium Total Bilirubin AST ALT Alkaline Phosphatase Total Protein Albumin 06/09/25 06/09/25 06/09/25 07:17 07:17 07:17 MCV MCH MCHC RDW Plt Count MPV Immature Gran % (Auto) Neut % (Auto) Lymph % (Auto) [place] % (Auto) Eos % (Auto) Baso % (Auto) Cancelled Lymph # (Auto) 2.3 Cancelled [place] # (Auto) 1.0 Cancelled Eos # (Auto) 0.2 Baso # (Auto) Abs Immat Gran (auto) Absolute Neuts (auto) Absolute Nucleated RBC Nucleated RBC % (auto) Hold Purple Top Anion Gap Estim Creat Clear Calc Estimated GFR Random Glucose Calcium Total Bilirubin AST ALT Alkaline Phosphatase Total Protein Albumin 06/09/25 06/09/25 06/09/25 07:17 07:17 07:17 MCV MCH MCHC RDW Plt Count MPV Immature Gran % (Auto) Neut % (Auto) Lymph % (Auto) [place] % (Auto) Eos % (Auto) Baso % (Auto) Lymph # (Auto) [place] # (Auto) Eos # (Auto) Cancelled Baso # (Auto) 0.1 Cancelled Abs Immat Gran (auto) 0.16 H Cancelled Absolute Neuts (auto) 7.6 Absolute Nucleated RBC Nucleated RBC % (auto) Hold Purple Top Anion Gap Estim Creat Clear Calc Estimated GFR Random Glucose Calcium Total Bilirubin AST ALT Alkaline Phosphatase Total Protein Albumin 06/09/25 06/09/25 06/09/25 07:17 07:17 07:17 MCV MCH MCHC RDW Plt Count MPV Immature Gran % (Auto) Neut % (Auto) Lymph % (Auto) [place] % (Auto) Eos % (Auto) Baso % (Auto) Lymph # (Auto) [place] # (Auto) Eos # (Auto) Baso # (Auto) Abs Immat Gran (auto) Absolute Neuts (auto) Cancelled Absolute Nucleated RBC 0.000 Cancelled Nucleated RBC % (auto) 0.0 Cancelled Hold Purple Top SEE NOTE Anion Gap 12 Estim Creat Clear Calc 116.6 Estimated GFR > 60 Random Glucose 97 Calcium 8.8 Total Bilirubin 0.7 AST 28 ALT 21 Alkaline Phosphatase 212 H Total Protein 7.1 Albumin 3.2 L Assessment and Plan (1) Acute respiratory failure: Status: Acute (2) Pneumonia: Status: Acute (3) Hypersensitivity pneumonitis: Status: Acute (4) Cough with hemoptysis: Status: Acute (5) Cellulitis of left leg: Status: Acute (6) Hepatic cirrhosis: Status: Acute (7) Active intravenous drug use: Status: Acute (8) Tricuspid valve vegetation: Status: Acute (9) Tricuspid valve stenosis: Status: Acute Plan 34-year-old male with a background history of PSUD/IVDU (heroin, fentanyl, cocaine), endocarditis s/p bioprosthetic tricuspid valve replacement 2019, septic pulmonary emboli and empyema, cardiomyopathy, hepatic cirrhosis, DVT/PE noncompliance apixaban, untreated chronic hepatitis-C, active mitral valve endocarditis (no treatment) and tricuspid valve stenosis, homelessness, presents to the hospital with hemoptysis and abdominal distention & actively intoxicated (heroin, fentanyl, cocaine), admitted with hemoptysis secondary to cocaine induced pneumonitis and superimposed pneumonia, active substance use disorder (heroin/fentanyl/cocaine), left lower extremity cellulitis. Hemoptysis Drug-induced pneumonitis (crack lung) Left lower lobe pneumonia Patient presenting to the hospital with complaints of hemoptysis. Actively using cocaine. Initial suspicion possibly secondary to pulmonary embolism, however CTA negative. Pulmonology consult on the patient, greatly appreciated. [place] to be secondary to multifactorial etiology including pneumonitis likely secondary to inhaled drugs & probable superimposed pneumonia. PLAN - continue doxycycline 100 mg b.i.d. p.o. - continue prednisone 40 mg OD p.o. (10 mg taper every 3 days) - cleared to restart Eliquis once his phlegm is clear of blood Acute DVT left lower extremity Possible thrombophlebitis History DVT History of pulmonary embolism (septic) Elevated D-dimer, CTA negative for pulmonary embolism. History of noncompliance with apixaban/anticoagulation Patient has a history of homelessness, and represents an elevated risk for TB PLAN - hold apixaban until hemoptysis resolves - monitor H&H - pulmonary recommendations appreciated - tuberculosis testing performed; CT negative. Mmitral valve endocarditis without active infection Tricuspid valve stenosis Prior bioprosthetic tricuspid valve replacement (endocarditis 2019) Cardiomyopathy Patient has been noncompliant with care, medications, follow-up. Intervention performed in 2019 for infective endocarditis with tricuspid valve vegetation s/p bioprosthetic replacement. Repeat echocardiography today revealing severe tricuspid valve stenosis, elevated right cardiac pressures. EF presumed normal until formal report. PLAN - cardiology evaluated the patient via curbside; greatly appreciate input. We will consult for formal interventions if appropriate - hold apixaban until hemoptysis resolves - monitor H&H - monitor BMP and BNP - I/O q.6 - Monitor blood cultures Hepatic cirrhosis Congestive hepatopathy (tricuspid stenosis) Untreated hepatitis-C Abdominal distension/Ascites Hepatic encephalopathy grade 1-2 Patient has identified hepatic cirrhosis. No large volume ascites identified. Likely secondary to congestive hepatopathy in the setting of right ventricular failure and elevated RV pressure is in the setting of severe tricuspid valve stenosis. Other obvious causative etiologies include untreated hepatitis-C infection; noncompliant with follow-up and intervention. Regarding hepatic encephalopathy, the patient has no overt asterixis, however is somnolent and tired. This could be secondary to recent use of heroin/fentanyl versus methadone. PLAN - continue lactulose - continue rifaximin - monitor mental status closely Left lower extremity cellulitis Currently on antibiotics for left lower extremity cellulitis. Possible superimposed component of thrombophlebitis May also have isolated underlying DVT. PLAN - continue antibiotics - await ultrasound lower extremity Active polysubstance use disorder Heroin and fentanyl abuse Cocaine abuse Patient has been seeking outpatient help with [facility] and now [facility] for detox Patient has insight as to the severity of his health concerns related to IV drug abuse including his mitral valve vegetation and stenosis of the tricuspid valve prosthesis Patient states being homeless is making his ability to stop using so much harder Case management consulted PLAN - Methadone as per addiction Medicine recommendations - addiction medicine consultation - [facility] - [facility] - VTE: Apixaban on hold due to hemoptysis. SCDs ordered (no LE DVT based on ultrasound) - CODE STATUS: Full code - DIET: Regular Total time managing care of this patient today: 60 minutes. Quality Stroke Does the patient have a stroke diagnosis?: No Reason for No Anti-thrombotic by Day Two: Contraindicated VTE Prior VTE?: No VTE Risk Level:: Medical - moderate - high VTE Device Contraindication: N/A - Device Ordered VTE Drug Contraindication: Treatment Not Indicated
[2025-06-09 15:39] VITALS: BP 124/75; PULSE 91; RESP 17; TEMP 36.7; O2SAT 96
[2025-06-09 16:08] LABS: OBS Int Ctl Valid YES; OBS1 NEGATIVE (NEGATIVE)
--- NOTE | 2025-06-09 16:12 | MHC.CM.PN ---
CM MET W/PT PER PT'S MOTHERS REQUEST FOR PT TO SIGN CONSENT FOR PT TO HAVE ASSISTANCE W/PLACEMENT THROUGH [facility] AT [phone], [facility] WHO CAN WORK WITH AND [facility] MEDICAL RESPITE, CONSENT SIGNED AND CM WILL FOLLOW UP ON THURSDAY.
--- NOTE | 2025-06-09 16:59 | MHC.RECOVRN ---
TW met with pt to offer continued support for OUD. Pt reports he would like to continue OUD treatment upon discharge. Referrals sent to [facility] and [facility] for potential placement, however both programs report extensive wait lists at this time. Pt provided tw with contact information for his mother as pt does not have a telephone number should either program call for intake information. Tw available for further assistance, questions, or concerns pertaining to recovery and support.
[2025-06-09 19:47] VITALS: BP 120/75; PULSE 99; RESP 18; TEMP 36.3; O2SAT 98
[2025-06-09 23:40] VITALS: BP 121/75; PULSE 97; RESP 16; TEMP 36.8; O2SAT 97
[2025-06-10] VITALS (7 sets, daily range): BP systolic 108–134; BP diastolic 57–85; PULSE 86–100; RESP 17–20; TEMP 36.3–36.9; O2SAT 94–98
[2025-06-10 07:16] LABS: MANUAL DIFF FLAG NO
[2025-06-10 07:25] LABS: Hematocrit 31.4 % (42.0-52.0); Hemoglobin 8.9 g/dl (14.0-18.0); Imm Gran Abs Auto 0.25 X10*3/uL (0.00-0.03); Imm Gran Pct Auto 1.9 % (0.0-0.4); Lymphocytes Absolute Auto 2.1 X10*3/uL (1.2-4.9); Mean Corpuscular HGB Conc 28.3 g/dl (31.0-36.0); Mean Corpuscular Hemoglobin 20.2 pg (27.0-33.0); Mean Corpuscular Volume 71.2 fL (80.0-98.0); NRBC Abs Auto 0.000 X10*3/uL (0.0-0.012); NRBC Pct Auto 0.0 /100WBC (0.0-0.2); Platelet Count 302 X10*3/uL (160-400); Red Blood Count 4.41 X10*6/uL (4.60-5.80); White Blood Count 12.8 X10*3/uL (4.8-10.8)
[2025-06-10 08:03] LABS: Alanine Aminotransferase 21 U/L (0-40); Albumin Level 3.4 g/dL (3.5-5.0); Alkaline Phosphatase 196 U/L (39-117); Anion Gap 12 (12-20); Aspartate Amino Transferase 23 U/L (5-37); Blood Urea Nitrogen 28 mg/dL (9-16); Calcium 9.0 mg/dL (8.4-10.2); Carbon Dioxide 20 mmol/L (22-29); Chloride 110 mmol/L (96-108); Creatinine Clr Calc Pharmacy 126.2; Estimated Glomerular Filt Rate > 60; Potassium 4.4 mmol/L (3.3-5.1); Sodium 138 mmol/L (135-145); Total Protein 7.0 g/dL (6.5-8.0)
[2025-06-10] MEDS: 0.9 % Sodium Chloride Flush 3 ML SYRINGE IVFLUSH ×3 (09:19→20:53)
--- NOTE | 2025-06-10 10:55 | MHC.RECOVRN ---
TW met with pt to check-in and offer support. Pt was sitting on side of bed, head down, bent over the side table, with eyes closed. Pt opened eyes when name called and said he's bored and he wants to leave. Pt appears drowsy & disheveled. Speech is mumbled and difficult to understand at times. Pt closes eyes and needs to be readdressed several times during assessment. TW educated pt on health status and need for hospital admission and encouraged pt to remain hospitalized until discharged. Pt states he would like ensure w/ his meals and to go for a walk. Pt informed that due to current presentation a walk may not be in his best interest. Pt did not respond and closed his eyes again, respirations are even and unlabored. Information relayed to primary RN via tiger text
--- NOTE | 2025-06-10 13:02 | HO.PM.IMPN ---
Subjective Subjective Date of Service: 06/10/25 Interval History: Patient seen by bedside, patient was asleep at the time. He endorses 1 episode of hemoptysis yesterday. Denies chest pain, palpitations, dizziness, diaphoresis, respiratory distress. Review of Systems Review of Systems: Yes all other systems are reviewed and are negative Physical Exam Exam: Exam: General: A&O x3, oriented to time place person and situation. Communicative and pleasant. Cardiac: S1-S2 auscultated no S3-S4. Grade 3 diastolic murmur auscultated at tricuspid region, grade 3 diastolic murmur auscultated at pulmonic. Well-perfused. JVP identified. Respiratory: Normal breath sounds auscultated throughout all lung zones, without wheezing, rales. Normal rate. GI/ : No abdominal pain on palpation, no masses. Abdomen distended on palpation, however no ascites was identified. Hepatosplenomegaly identified on physical examination. MSK: Normal ambulation without pain at bony prominences or musculature. Lower extremities: Multiple varicose veins identified and lower extremities, with evidence of lipodermatosclerosis. Left anterior anthony scabbed wound, without pustules, fluctuance. Neurological: Normal neurological examination on overview, without obvious CN II-XII abnormalities. Vital Signs: Vital Signs: Last Vital Signs Temp 97.6 F 06/10/25 11:28 Pulse 94 06/10/25 11:28 Resp 20 06/10/25 11:28 BP 115/60 06/10/25 11:28 Pulse Ox 96 06/10/25 11:28 O2 Del Method Room Air 06/10/25 11:28 BMI result Body Mass Index 23.9 Objective Data Active Medications Acetaminophen (Acetaminophen 325 Mg Tablet) 650 mg PO Q6H PRN PRN Reason: Pain, Mild 1-3,fever,headache Last Admin: 06/07/25 23:47 Dose: 650 mg Documented By: DELVIN Albuterol/Ipratropium (Albuterol/Iprat 2.5/0.5mg 3 Ml Ampul.Neb) 3 ml INHALE Q4H PRN PRN Reason: Shortness of Breath/Wheezing Calcium Carbonate (Calcium Carbonate 750 Mg Tab.Chew) 750 mg PO Q4H PRN PRN Reason: Heartburn Cephalexin HCl (Cephalexin 500 Mg Capsule) 500 mg PO Q6H [facility] Last Admin: 06/10/25 09:18 Dose: 500 mg Documented By: MACKENZIE Doxycycline Monohydrate (Doxycycline Monohydrate 100 Mg Capsule) 100 mg PO Q12H [facility] Last Admin: 06/10/25 09:18 Dose: 100 mg Documented By: MACKENZIE Lactulose (Lactulose 20 Gm/30 Ml Solution) 10 gm PO DAILY [facility] Last Admin: 06/09/25 09:07 Dose: 10 gm Documented By: W[place] Magnesium Hydroxide (Milk Of Magnesia 30 Ml Oral.Susp) 30 ml PO DAILY PRN PRN Reason: Constipation Melatonin (Melatonin 3 Mg Tablet) 6 mg PO BEDTIME PRN PRN Reason: Insomnia Last Admin: 06/09/25 22:33 Dose: 6 mg Documented By: AUDREY Methadone HCl (Methadone Hcl 20 Mg/2 Ml Oral.Conc) 60 mg PO DAILY@0800 [facility] Ondansetron HCl (Ondansetron Hcl 4 Mg/2 Ml Vial) 4 mg IVPUSH Q8H PRN PRN Reason: Nausea and Vomiting Polyethylene Glycol (Polyethylene Glycol 3350 17 Gm Powd.Pack) 17 gm PO DAILY PRN PRN Reason: Constipation Prednisone (Prednisone 20 Mg Tablet) 40 mg PO DAILY [facility] Last Admin: 06/10/25 09:18 Dose: 40 mg Documented By: MACKENZIE Rifaximin (Rifaximin 550 Mg Tablet) 550 mg PO BID [facility] [place] Last Admin: 06/10/25 09:18 Dose: 550 mg Documented By: MACKENZIE Senna (Sennosides 8.6 Mg Tablet) 17.2 mg PO BEDTIME [facility] [place] Last Admin: 06/09/25 21:44 Dose: Not Given Documented By: AUDREY Non-Admin Reason: Patient Refused Sodium Chloride (0.9 % Sodium Chloride Flush 3 Ml Syringe) 3 ml IVFLUSH QSHIFT [facility] [place] Last Admin: 06/10/25 09:19 Dose: 3 ml Documented By: MACKENZIE Labs 06/10/25 07:08 06/10/25 07:08 Labs: Laboratory Results - last 24 hr 06/09/25 06/10/25 15:41 07:08 MCV 71.2 L MCH 20.2 L MCHC 28.3 L RDW 27.1 H Plt Count 302 MPV 9.5 Immature Gran % (Auto) 1.9 H Neut % (Auto) 69.7 Lymph % (Auto) 16.4 L [place] % (Auto) 9.8 Eos % (Auto) 1.5 Baso % (Auto) 0.7 Lymph # (Auto) 2.1 [place] # (Auto) 1.3 H Eos # (Auto) 0.2 Baso # (Auto) 0.1 Abs Immat Gran (auto) 0.25 H Absolute Neuts (auto) 9.0 H Absolute Nucleated RBC 0.000 Nucleated RBC % (auto) 0.0 Anion Gap 12 Estim Creat Clear Calc 126.2 Estimated GFR > 60 Random Glucose 65 Calcium 9.0 Total Bilirubin 0.7 AST 23 ALT 21 Alkaline Phosphatase 196 H Total Protein 7.0 Albumin 3.4 L Stool Occult Blood NEGATIVE Assessment and Plan (1) Active intravenous drug use: Status: Acute (2) Tricuspid valve stenosis: Status: Acute (3) Pulmonary embolism: Status: Acute (4) Hepatic cirrhosis: Status: Acute (5) Hemoptysis: Status: Acute Plan 34-year-old male with a background history of PSUD/IVDU (heroin, fentanyl, cocaine), endocarditis s/p bioprosthetic tricuspid valve replacement 2019, septic pulmonary emboli and empyema, cardiomyopathy, hepatic cirrhosis, DVT/PE noncompliance apixaban, untreated chronic hepatitis-C, active mitral valve endocarditis (no treatment) and tricuspid valve stenosis, homelessness, presents to the hospital with hemoptysis and abdominal distention & actively intoxicated (heroin, fentanyl, cocaine), admitted with hemoptysis secondary to cocaine induced pneumonitis and superimposed pneumonia, active substance use disorder (heroin/fentanyl/cocaine), left lower extremity cellulitis. Hemoptysis Drug-induced pneumonitis (crack lung) Left lower lobe pneumonia Patient presenting to the hospital with complaints of hemoptysis. Actively using cocaine. Initial suspicion possibly secondary to pulmonary embolism, however CTA negative. Pulmonology consult on the patient, greatly appreciated. [place] to be secondary to multifactorial etiology including pneumonitis likely secondary to inhaled drugs & probable superimposed pneumonia. PLAN - continue doxycycline 100 mg b.i.d. p.o. - continue prednisone 40 mg OD p.o. (10 mg taper every 3 days) - cleared to restart Eliquis once his phlegm is clear of blood Acute DVT left lower extremity Possible thrombophlebitis History DVT History of pulmonary embolism (septic) Elevated D-dimer, CTA negative for pulmonary embolism. History of noncompliance with apixaban/anticoagulation Patient has a history of homelessness, and represents an elevated risk for TB PLAN - hold apixaban until hemoptysis resolves - monitor H&H - pulmonary recommendations appreciated - tuberculosis testing performed; CT negative. Mmitral valve endocarditis without active infection Tricuspid valve stenosis Prior bioprosthetic tricuspid valve replacement (endocarditis 2019) Cardiomyopathy Patient has been noncompliant with care, medications, follow-up. Intervention performed in 2020 for infective endocarditis with tricuspid valve vegetation s/p bioprosthetic replacement. Repeat echocardiography today revealing severe tricuspid valve stenosis, elevated right cardiac pressures. EF presumed normal until formal report. PLAN - cardiology evaluated the patient via curbside; greatly appreciate input. We will consult for formal interventions if appropriate - hold apixaban until hemoptysis resolves - monitor H&H - monitor BMP and BNP - I/O q.6 - Monitor blood cultures Hepatic cirrhosis Congestive hepatopathy (tricuspid stenosis) Untreated hepatitis-C Abdominal distension/Ascites Hepatic encephalopathy grade 1-2 Patient has identified hepatic cirrhosis. No large volume ascites identified. Likely secondary to congestive hepatopathy in the setting of right ventricular failure and elevated RV pressure is in the setting of severe tricuspid valve stenosis. Other obvious causative etiologies include untreated hepatitis-C infection; noncompliant with follow-up and intervention. Regarding hepatic encephalopathy, the patient has no overt asterixis, however is somnolent and tired. This could be secondary to recent use of heroin/fentanyl versus methadone. PLAN - continue lactulose - continue rifaximin - monitor mental status closely Left lower extremity cellulitis Currently on antibiotics for left lower extremity cellulitis. Possible superimposed component of thrombophlebitis May also have isolated underlying DVT. PLAN - continue antibiotics - await ultrasound lower extremity Active polysubstance use disorder Heroin and fentanyl abuse Cocaine abuse Patient has been seeking outpatient help with [facility] and now [facility] for detox Patient has insight as to the severity of his health concerns related to IV drug abuse including his mitral valve vegetation and stenosis of the tricuspid valve prosthesis Patient states being homeless is making his ability to stop using so much harder Case management consulted PLAN - Methadone as per addiction Medicine recommendations - addiction medicine consultation - [facility] - VTE: Apixaban on hold due to hemoptysis. SCDs ordered (no LE DVT based on ultrasound) - CODE STATUS: Full code - DIET: Regular Total time managing care of this patient today: 35 minutes. Quality Stroke Does the patient have a stroke diagnosis?: No Reason for No Anti-thrombotic by Day Two: Contraindicated VTE Prior VTE?: No VTE Risk Level:: Medical - moderate - high VTE Device Contraindication: N/A - Device Ordered VTE Drug Contraindication: Treatment Not Indicated
[2025-06-10] MEDS: methADONE HCl 20 MG/2 ML ORAL.CONC 60 MG PO (14:17)
[2025-06-10 14:19] LABS: Quantiferon TB Gold Plus 1 NEGATIVE (NEGATIVE); TB Test (QFT) Mitogen -Nil 7.59 IU/mL; TB Test (QFT) Nil 0.01 IU/mL; TB Test (QFT) Plus TB1 -Nil 0.17 IU/mL; TB Test (QFT) Plus TB2 -Nil 0.14 IU/mL
[2025-06-10 15:58] LABS: Ammonia 58 umol/L (13-55)
[2025-06-10 16:29] LABS: Magnesium 1.3 mg/dL (1.6-2.6)
--- NOTE | 2025-06-11 | ECG_ITS ---
Test Reason : qtc check Blood Pressure : */* mmHG Vent. Rate : 106 BPM Atrial Rate : 106 BPM P-R Int : 134 ms QRS Dur : 94 ms QT Int : 356 ms P-R-T Axes : 77 68 34 degrees QTcB Int : 472 ms Sinus tachycardia Incomplete right bundle branch block Nonspecific T wave abnormality Abnormal ECG When compared with ECG of 06-Jun-2025 15:15, No significant changes seen Referred By: Tami Luna Electronically Signed By: VIOLET SULLIVAN
[2025-06-11 03:17] VITALS: BP 100/57; PULSE 92; RESP 18; TEMP 36.4; O2SAT 96
[2025-06-11 07:18] LABS: MANUAL DIFF FLAG NO
[2025-06-11 07:27] VITALS: BP 116/75; PULSE 92; RESP 20; TEMP 36.7; O2SAT 96
[2025-06-11 07:32] LABS: Hematocrit 30.6 % (42.0-52.0); Hemoglobin 8.6 g/dl (14.0-18.0); Imm Gran Abs Auto 0.57 X10*3/uL (0.00-0.03); Imm Gran Pct Auto 4.1 % (0.0-0.4); Lymphocytes Absolute Auto 2.7 X10*3/uL (1.2-4.9); Mean Corpuscular HGB Conc 28.1 g/dl (31.0-36.0); Mean Corpuscular Hemoglobin 20.0 pg (27.0-33.0); Mean Corpuscular Volume 71.0 fL (80.0-98.0); NRBC Abs Auto 0.020 X10*3/uL (0.0-0.012); NRBC Pct Auto 0.1 /100WBC (0.0-0.2); Platelet Count 288 X10*3/uL (160-400); Red Blood Count 4.31 X10*6/uL (4.60-5.80); White Blood Count 14.0 X10*3/uL (4.8-10.8)
[2025-06-11 07:40] LABS: Alanine Aminotransferase 24 U/L (0-40); Albumin Level 3.3 g/dL (3.5-5.0); Alkaline Phosphatase 192 U/L (39-117); Anion Gap 16 (12-20); Aspartate Amino Transferase 25 U/L (5-37); Blood Urea Nitrogen 31 mg/dL (9-16); Calcium 9.0 mg/dL (8.4-10.2); Carbon Dioxide 20 mmol/L (22-29); Chloride 106 mmol/L (96-108); Creatinine Clr Calc Pharmacy 116.6; Estimated Glomerular Filt Rate > 60; Potassium 4.3 mmol/L (3.3-5.1); Sodium 138 mmol/L (135-145); Total Protein 7.0 g/dL (6.5-8.0)
[2025-06-11] MEDS: 0.9 % Sodium Chloride Flush 3 ML SYRINGE IVFLUSH ×3 (09:01→21:44)
[2025-06-11] MEDS: methADONE HCl 20 MG/2 ML ORAL.CONC 60 MG PO (09:01)
--- NOTE | 2025-06-11 10:46 | PC.NURSE ---
Patient ate 2 bowls of cereal this morning. After finishing, he was reclining on his bed when he starting coughing blood. He coughed up appropimately 1/2 cup of bloody secretions. [employer] text sent to provider including picture.
[2025-06-11 11:06] VITALS: BP 123/73; PULSE 92; RESP 20; TEMP 36.2; O2SAT 96
--- NOTE | 2025-06-11 12:22 | HO.PM.IMPN ---
Subjective Subjective Date of Service: 06/11/25 Interval History: Episode of hemoptysis last night. Otherwise has new complaints. Reports his breathing is regular without dyspnea, coughing, phlegm production. Denies chest pains or pressure. Physical Exam Exam: Exam: General: A&O x3, oriented to time place person and situation. Communicative and pleasant. Cardiac: S1-S2 auscultated no S3-S4. Grade 3 diastolic murmur auscultated at tricuspid region, grade 3 diastolic murmur auscultated at pulmonic. Well-perfused. JVP identified. Respiratory: Normal breath sounds auscultated throughout all lung zones, without wheezing, rales. Normal rate. GI/ : No abdominal pain on palpation, no masses. Abdomen distended on palpation, however no ascites was identified. Hepatosplenomegaly identified on physical examination. MSK: Normal ambulation without pain at bony prominences or musculature. Lower extremities: Multiple varicose veins identified and lower extremities, with evidence of lipodermatosclerosis. Left anterior anthony scabbed wound, without pustules, fluctuance. Neurological: Normal neurological examination on overview, without obvious CN II-XII abnormalities. Vital Signs: Vital Signs: Last Vital Signs Temp 97.2 F 06/11/25 11:06 Pulse 92 06/11/25 11:06 Resp 20 06/11/25 11:06 BP 123/73 06/11/25 11:06 Pulse Ox 96 06/11/25 11:06 O2 Del Method Room Air 06/11/25 11:06 BMI result Body Mass Index 23.9 Objective Data Active Medications Acetaminophen (Acetaminophen 325 Mg Tablet) 650 mg PO Q6H PRN PRN Reason: Pain, Mild 1-3,fever,headache Last Admin: 06/07/25 23:47 Dose: 650 mg Documented By: DELVIN Albuterol/Ipratropium (Albuterol/Iprat 2.5/0.5mg 3 Ml Ampul.Neb) 3 ml INHALE Q4H PRN PRN Reason: Shortness of Breath/Wheezing Calcium Carbonate (Calcium Carbonate 750 Mg Tab.Chew) 750 mg PO Q4H PRN PRN Reason: Heartburn Cephalexin HCl (Cephalexin 500 Mg Capsule) 500 mg PO Q6H [facility] Last Admin: 06/11/25 10:01 Dose: 500 mg Documented By: JERRY Doxycycline Monohydrate (Doxycycline Monohydrate 100 Mg Capsule) 100 mg PO Q12H [facility] Last Admin: 06/11/25 10:01 Dose: 100 mg Documented By: JERRY Lactulose (Lactulose 20 Gm/30 Ml Solution) 10 gm PO DAILY [facility] Last Admin: 06/11/25 09:05 Dose: Not Given Documented By: JERRY Non-Admin Reason: Patient Refused Magnesium Hydroxide (Milk Of Magnesia 30 Ml Oral.Susp) 30 ml PO DAILY PRN PRN Reason: Constipation Magnesium Oxide (Magnesium Oxide 400 Mg Tablet) 800 mg PO DAILY [facility] Last Admin: 06/11/25 09:01 Dose: 800 mg Documented By: JERRY Melatonin (Melatonin 3 Mg Tablet) 6 mg PO BEDTIME PRN PRN Reason: Insomnia Last Admin: 06/10/25 20:52 Dose: 6 mg Documented By: AUDREY Methadone HCl (Methadone Hcl 20 Mg/2 Ml Oral.Conc) 60 mg PO DAILY@0800 [facility] Last Admin: 06/11/25 09:01 Dose: 60 mg Documented By: JERRY Co-signed By: HANNAH Ondansetron HCl (Ondansetron Hcl 4 Mg/2 Ml Vial) 4 mg IVPUSH Q8H PRN PRN Reason: Nausea and Vomiting Polyethylene Glycol (Polyethylene Glycol 3350 17 Gm Powd.Pack) 17 gm PO DAILY PRN PRN Reason: Constipation Prednisone (Prednisone 20 Mg Tablet) 40 mg PO DAILY [facility] Last Admin: 06/11/25 09:01 Dose: 40 mg Documented By: JERRY Rifaximin (Rifaximin 550 Mg Tablet) 550 mg PO BID [facility] Last Admin: 06/11/25 09:01 Dose: 550 mg Documented By: JERRY Senna (Sennosides 8.6 Mg Tablet) 17.2 mg PO BEDTIME [facility] Last Admin: 06/10/25 20:22 Dose: Not Given Documented By: AUDREY Non-Admin Reason: Patient Refused Sodium Chloride (0.9 % Sodium Chloride Flush 3 Ml Syringe) 3 ml IVFLUSH QSHIFT [facility] Last Admin: 06/11/25 09:01 Dose: 3 ml Documented By: JERRY Labs 06/11/25 07:11 06/11/25 07:11 Labs: Laboratory Results - last 24 hr 06/07/25 06/10/25 06/11/25 08:32 15:25 07:11 MCV 71.0 L MCH 20.0 L MCHC 28.1 L RDW 26.5 H Plt Count 288 MPV 9.2 L Immature Gran % (Auto) 4.1 H Neut % (Auto) 64.1 Lymph % (Auto) 19.6 L [place] % (Auto) 10.7 Eos % (Auto) 1.1 Baso % (Auto) 0.4 Lymph # (Auto) 2.7 [place] # (Auto) 1.5 H Eos # (Auto) 0.2 Baso # (Auto) 0.1 Abs Immat Gran (auto) 0.57 H Absolute Neuts (auto) 9.0 H Absolute Nucleated RBC 0.020 H Nucleated RBC % (auto) 0.1 Hold Purple Top SEE NOTE Anion Gap 16 Estim Creat Clear Calc 116.6 Estimated GFR > 60 Random Glucose 96 Calcium 9.0 Magnesium 1.3 L* Total Bilirubin 0.6 AST 25 ALT 24 Alkaline Phosphatase 192 H Ammonia 58 H Total Protein 7.0 Albumin 3.3 L Hold Yellow Top See Note TB Test (QFT) Gold Plus NEGATIVE TB Test (QFT) Nil 0.01 TB Test Mitogen - Nil 7.59 TB Test (QFT) +TB1 -NIL 0.17 TB Test (QFT) +TB2 -NIL 0.14 Assessment and Plan (1) Active intravenous drug use: Status: Acute (2) Substance abuse: Status: Acute (3) Heart failure with mildly reduced ejection fraction: Status: Acute (4) Tricuspid valve vegetation: Status: Acute (5) Tricuspid valve stenosis: Status: Acute (6) Pulmonary embolism: Status: Acute (7) Pneumonitis due to crack cocaine: Status: Acute (8) Hemoptysis: Status: Acute Plan 34-year-old male with a background history of PSUD/IVDU (heroin, fentanyl, cocaine), endocarditis s/p bioprosthetic tricuspid valve replacement 2019, septic pulmonary emboli and empyema, cardiomyopathy, hepatic cirrhosis, DVT/PE noncompliance apixaban, untreated chronic hepatitis-C, active mitral valve endocarditis (no treatment) and tricuspid valve stenosis, homelessness, presents to the hospital with hemoptysis and abdominal distention & actively intoxicated (heroin, fentanyl, cocaine), admitted with hemoptysis secondary to cocaine induced pneumonitis and superimposed pneumonia, active substance use disorder (heroin/fentanyl/cocaine), left lower extremity cellulitis. Hemoptysis Drug-induced pneumonitis (crack lung) Left lower lobe pneumonia Patient presenting to the hospital with complaints of hemoptysis. Actively using cocaine. Initial suspicion possibly secondary to pulmonary embolism, however CTA negative. Pulmonology consult on the patient, greatly appreciated. [place] to be secondary to multifactorial etiology including pneumonitis likely secondary to inhaled drugs & probable superimposed pneumonia. PLAN - continue doxycycline 100 mg b.i.d. p.o. - continue prednisone 40 mg OD p.o. (10 mg taper every 3 days) - cleared to restart Eliquis once his phlegm is clear of blood Acute DVT left lower extremity Possible thrombophlebitis History DVT History of pulmonary embolism (septic) Elevated D-dimer, CTA negative for pulmonary embolism. History of noncompliance with apixaban/anticoagulation Patient has a history of homelessness, and represents an elevated risk for TB PLAN - hold apixaban until hemoptysis resolves - monitor H&H - pulmonary recommendations appreciated - tuberculosis testing performed; CT negative. Mmitral valve endocarditis without active infection Tricuspid valve stenosis Prior bioprosthetic tricuspid valve replacement (endocarditis 2019) Cardiomyopathy Patient has been noncompliant with care, medications, follow-up. Intervention performed in 2020 for infective endocarditis with tricuspid valve vegetation s/p bioprosthetic replacement. Repeat echocardiography today revealing severe tricuspid valve stenosis, elevated right cardiac pressures. EF presumed normal until formal report. PLAN - cardiology evaluated the patient via curbside; greatly appreciate input. We will consult for formal interventions if appropriate - hold apixaban until hemoptysis resolves - monitor H&H - monitor BMP and BNP - I/O q.6 - Monitor blood cultures Hepatic cirrhosis Congestive hepatopathy (tricuspid stenosis) Untreated hepatitis-C Abdominal distension/Ascites Hepatic encephalopathy grade 1-2 Patient has identified hepatic cirrhosis. No large volume ascites identified. Likely secondary to congestive hepatopathy in the setting of right ventricular failure and elevated RV pressure is in the setting of severe tricuspid valve stenosis. Other obvious causative etiologies include untreated hepatitis-C infection; noncompliant with follow-up and intervention. Regarding hepatic encephalopathy, the patient has no overt asterixis, however is somnolent and tired. This could be secondary to recent use of heroin/fentanyl versus methadone. PLAN - continue lactulose - continue rifaximin - monitor mental status closely Left lower extremity cellulitis Currently on antibiotics for left lower extremity cellulitis. Possible superimposed component of thrombophlebitis May also have isolated underlying DVT. PLAN - continue antibiotics - await ultrasound lower extremity Active polysubstance use disorder Heroin and fentanyl abuse Cocaine abuse Patient has been seeking outpatient help with [facility] and now [facility] for detox Patient has insight as to the severity of his health concerns related to IV drug abuse including his mitral valve vegetation and stenosis of the tricuspid valve prosthesis Patient states being homeless is making his ability to stop using so much harder Case management consulted PLAN - Methadone as per addiction Medicine recommendations - addiction medicine consultation - [facility] - VTE: Apixaban on hold due to hemoptysis. SCDs ordered (no LE DVT based on ultrasound) - CODE STATUS: Full code - DIET: Regular Total time managing care of this patient today: 35 minutes. Quality Stroke Does the patient have a stroke diagnosis?: No Reason for No Anti-thrombotic by Day Two: Contraindicated VTE Prior VTE?: No VTE Risk Level:: Medical - moderate - high VTE Device Contraindication: N/A - Device Ordered VTE Drug Contraindication: Treatment Not Indicated
[2025-06-11 15:41] VITALS: BP 109/58; PULSE 90; RESP 20; TEMP 36.2; O2SAT 100
--- NOTE | 2025-06-11 17:29 | MHC.RECOVRN ---
TW met with pt in 471 to offer support. Pt was sitting in bed, eating jello and watching TV. Pt appears less sedated than previously noted, however reports chills despite being wrapped in several blankets in addition to some diffuse muscle aches. Pt asked why his methadone was decreased. TW educated pt on reports of increased sedation as well elevated ammonia levels. Pt asked for methadone to be increased by like 20 mgs . 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 Pt reported he wanted to leave, however TW encourage pt to stay for continued care as he is medically compromised and would likely be readmitted shortly after leaving. Pt was encouraged to take lactulose which he initially refused reporting, I don't even know what it's for . Pt was educated further on the role lactulose plays on expelling excess ammonia from the body. Pt verbalized understanding and agreed to take lactulose as ordered in exchange for some chocolate. TW provided pt with chocolate and soft blanket to aid in comfort. Pt expressed gratitude and reaffirmed that he will comply with lactulose orders. TW available for further support as needed.
--- NOTE | 2025-06-11 17:38 | P.EN_ITS ---
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
[2025-06-11] MEDS: methADONE HCl 20 MG/2 ML ORAL.CONC 10 MG PO (17:46)
[2025-06-11 19:22] VITALS: BP 109/75; PULSE 104; RESP 18; TEMP 37; O2SAT 96
[2025-06-12 02:17] VITALS: BP 118/68; PULSE 102; RESP 18; TEMP 36.2; O2SAT 95
[2025-06-12 04:00] VITALS: BP 140/77; PULSE 106; RESP 20; TEMP 36.4; O2SAT 96
[2025-06-12 07:10] VITALS: BP 103/56; PULSE 102; RESP 16; TEMP 36.5; O2SAT 94
[2025-06-12] MEDS: methADONE HCl 20 MG/2 ML ORAL.CONC 60 MG PO (09:08)
[2025-06-12] MEDS: 0.9 % Sodium Chloride Flush 3 ML SYRINGE IVFLUSH ×3 (09:10→21:05)
[2025-06-12 09:28] LABS: Hematocrit 32.4 % (42.0-52.0); Hemoglobin 9.2 g/dl (14.0-18.0); Mean Corpuscular HGB Conc 28.4 g/dl (31.0-36.0); Mean Corpuscular Hemoglobin 19.9 pg (27.0-33.0); Mean Corpuscular Volume 70.0 fL (80.0-98.0); NRBC Abs Auto 0.020 X10*3/uL (0.0-0.012); NRBC Pct Auto 0.1 /100WBC (0.0-0.2); Platelet Count 325 X10*3/uL (160-400); Red Blood Count 4.63 X10*6/uL (4.60-5.80); White Blood Count 14.7 X10*3/uL (4.8-10.8)
--- NOTE | 2025-06-12 09:34 | HO.ADDICTPRO ---
Subjective Subjective Date of Service: 06/12/25 Reason For Visit: hemoptysis Interim History: Patient seen in follow up Methadone 70mg yesterday. Patient appearing very weak, but wakes easily and converses appropriately Discussed methadone dosing --reporting body aches. Rhinorrhea noted by t/w Reviewed EKG--QTcB 472 Labs pending for today Review of Systems Constitutional: Reports as per HPI Mental Status Exam Mental Status Exam Level of Consciousness: Appropriate and Lethargic Patient Behavior: Appropriate Affect Description: Calm and Blunted Speech Pattern: Clear Hallucinations: None Thought Process: Intact Thought Content: positive for Intact Judgement: Good Diagnostics Vital Signs (24Hr): Vital Signs - 24 hr 06/11/25 11:06 06/11/25 15:41 06/11/25 19:22 Temperature 97.2 F 97.1 F 98.6 F Pulse Rate 92 90 104 H Respiratory Rate 20 20 18 Blood Pressure 123/73 109/58 L 109/75 Pulse Oximetry 96 100 96 Oxygen Delivery Method Room Air Room Air Room Air 06/12/25 02:17 06/12/25 04:00 06/12/25 07:10 Temperature 97.2 F 97.5 F 97.7 F Pulse Rate 102 H 106 H 102 H Respiratory Rate 18 20 16 Blood Pressure 118/68 140/77 H 103/56 L Pulse Oximetry 95 96 94 Oxygen Delivery Method Room Air Room Air Room Air BMI result Body Mass Index 23.9 Labs 06/12/25 08:42 06/11/25 07:11 Labs: Laboratory Results - last 48 hr 06/07/25 06/10/25 06/11/25 08:32 15:25 07:11 WBC 14.0 H RBC 4.31 L Hgb 8.6 L Hct 30.6 L MCV 71.0 L MCH 20.0 L MCHC 28.1 L RDW 26.5 H Plt Count 288 MPV 9.2 L Immature Gran % (Auto) 4.1 H Neut % (Auto) 64.1 Lymph % (Auto) 19.6 L [place] % (Auto) 10.7 Eos % (Auto) 1.1 Baso % (Auto) 0.4 Lymph # (Auto) 2.7 [place] # (Auto) 1.5 H Eos # (Auto) 0.2 Baso # (Auto) 0.1 Abs Immat Gran (auto) 0.57 H Absolute Neuts (auto) 9.0 H Absolute Nucleated RBC 0.020 H Nucleated RBC % (auto) 0.1 Hold Purple Top SEE NOTE Sodium 138 Potassium 4.3 Chloride 106 Carbon Dioxide 20 L Anion Gap 16 BUN 31 H Creatinine 0.79 Estim Creat Clear Calc 116.6 Estimated GFR > 60 Random Glucose 96 Calcium 9.0 Magnesium 1.3 L* Total Bilirubin 0.6 AST 25 ALT 24 Alkaline Phosphatase 192 H Ammonia 58 H Total Protein 7.0 Albumin 3.3 L Hold Yellow Top See Note TB Test (QFT) Gold Plus NEGATIVE TB Test (QFT) Nil 0.01 TB Test Mitogen - Nil 7.59 TB Test (QFT) +TB1 -NIL 0.17 TB Test (QFT) +TB2 -NIL 0.14 06/12/25 08:42 WBC 14.7 H RBC 4.63 Hgb 9.2 L Hct 32.4 L MCV 70.0 L MCH 19.9 L MCHC 28.4 L RDW 26.7 H Plt Count 325 MPV 9.8 Immature Gran % (Auto) Cancelled Neut % (Auto) Cancelled Lymph % (Auto) Cancelled [place] % (Auto) Cancelled Eos % (Auto) Cancelled Baso % (Auto) Cancelled Lymph # (Auto) Cancelled [place] # (Auto) Cancelled Eos # (Auto) Cancelled Baso # (Auto) Cancelled Abs Immat Gran (auto) Cancelled Absolute Neuts (auto) Cancelled Absolute Nucleated RBC 0.020 H Nucleated RBC % (auto) 0.1 Hold Purple Top Sodium Potassium Chloride Carbon Dioxide Anion Gap BUN Creatinine Estim Creat Clear Calc Estimated GFR Random Glucose Calcium Magnesium Total Bilirubin AST ALT Alkaline Phosphatase Ammonia Total Protein Albumin Hold Yellow Top TB Test (QFT) Gold Plus TB Test (QFT) Nil TB Test Mitogen - Nil TB Test (QFT) +TB1 -NIL TB Test (QFT) +TB2 -NIL Imaging Radiology Impressions: ITS Impressions Tibia/Fibula X-Ray 06/07/25 07:15 IMPRESSION: Normal left tibia and fibula. Electronically signed by: Cory Krishnan MD 06/07/2025 08:26 AM EDT Venous Duplex 06/07/25 08:50 IMPRESSION: No evidence of deep venous thrombosis involving the bilateral lower extremities. Electronically signed by: Cory Krishnan MD 06/07/2025 09:13 AM EDT RP Abdomen/Pelvis CT 06/07/25 10:44 IMPRESSION: There is evidence of portal hypertension. There is hepatomegaly with recannulization of the umbilical vein and a finely nodular liver surface suggesting cirrhosis and mild to moderate ascites which is improved since the prior. Constipation. Fleischner guidelines were followed. Electronically signed by: Jarred Escudero MD 06/08/2025 12:24 PM EDT RP Head CT 06/08/25 10:44 IMPRESSION: No acute intracranial abnormality. Electronically signed by: Jarred Escudero MD 06/08/2025 12:15 PM EDT RP Medications Medications Current Medications Acetaminophen (Acetaminophen 325 Mg Tablet) 650 mg PO Q6H PRN PRN Reason: Pain, Mild 1-3,fever,headache Last Admin: 06/07/25 23:47 Dose: 650 mg Albuterol/Ipratropium (Albuterol/Iprat 2.5/0.5mg 3 Ml Ampul.Neb) 3 ml INHALE Q4H PRN PRN Reason: Shortness of Breath/Wheezing Calcium Carbonate (Calcium Carbonate 750 Mg Tab.Chew) 750 mg PO Q4H PRN PRN Reason: Heartburn Cephalexin HCl (Cephalexin 500 Mg Capsule) 500 mg PO Q6H [facility] Last Admin: 06/12/25 09:11 Dose: 500 mg Doxycycline Monohydrate (Doxycycline Monohydrate 100 Mg Capsule) 100 mg PO Q12H [facility] Last Admin: 06/12/25 09:11 Dose: 100 mg Lactulose (Lactulose 20 Gm/30 Ml Solution) 10 gm PO DAILY [facility] Last Admin: 06/12/25 09:08 Dose: 10 gm Magnesium Hydroxide (Milk Of Magnesia 30 Ml Oral.Susp) 30 ml PO DAILY PRN PRN Reason: Constipation Magnesium Oxide (Magnesium Oxide 400 Mg Tablet) 800 mg PO DAILY [facility] Last Admin: 06/12/25 09:11 Dose: 800 mg Melatonin (Melatonin 3 Mg Tablet) 6 mg PO BEDTIME PRN PRN Reason: Insomnia Last Admin: 06/10/25 20:52 Dose: 6 mg Methadone HCl (Methadone Hcl 20 Mg/2 Ml Oral.Conc) 20 mg PO ONCE ONE Stop: 06/12/25 11:01 Methadone HCl (Methadone Hcl 20 Mg/2 Ml Oral.Conc) 80 mg PO DAILY@0800 [facility] Ondansetron HCl (Ondansetron Hcl 4 Mg/2 Ml Vial) 4 mg IVPUSH Q8H PRN PRN Reason: Nausea and Vomiting Polyethylene Glycol (Polyethylene Glycol 3350 17 Gm Powd.Pack) 17 gm PO DAILY PRN PRN Reason: Constipation Prednisone (Prednisone 20 Mg Tablet) 40 mg PO DAILY [facility] Last Admin: 06/12/25 09:21 Dose: 40 mg Rifaximin (Rifaximin 550 Mg Tablet) 550 mg PO BID [facility] Last Admin: 06/12/25 09:11 Dose: 550 mg Senna (Sennosides 8.6 Mg Tablet) 17.2 mg PO BEDTIME [facility] Last Admin: 06/11/25 21:44 Dose: 17.2 mg Sodium Chloride (0.9 % Sodium Chloride Flush 3 Ml Syringe) 3 ml IVFLUSH QSHIFT [facility] Last Admin: 06/12/25 09:10 Dose: 3 ml Trazodone HCl (Trazodone Hcl 50 Mg Tablet) 50 mg PO BEDTIME [facility] Last Admin: 06/11/25 22:08 Dose: 50 mg Allergies Allergies Allergy/AdvReac Type Severity Reaction Status Date / Time No Known Allergies (No Known Allergy Verified 06/06/25 14:15 Allergies*) Assessment & Plan Assessment & Plan (1) Opioid use disorder, severe, dependence: Status: Acute Code(s): F11.20 - Opioid dependence, uncomplicated Assessment and Plan: methadone 80mg today methadone 80mg tomorrow + 15mg in evening (total 95mg) will continue to follow Total time managing care of this patient today __20__ minutes.
[2025-06-12 09:53] LABS: Lymphocytes Absolute Manual 2.2 X10*3/uL (1.2-4.9); Lymphocytes Percent Manual 15 % (20-40); Metamyelocytes Absolute 0.4 X10*3/uL; Metamyelocytes Percent 3 %; Monocytes Absolute Manual 0.4 X10*3/uL (0.1-1.2); Monocytes Percent Manual 3 % (2-11); Myelocytes Absolute 0.3 X10*/uL; Myelocytes Percent 2 %; Neutrophils Percent Manual 77 % (45-73)
[2025-06-12 09:54] LABS: Microcytosis 1+ (5-14) /OIF; RBC Morphology NOTED
[2025-06-12 09:55] LABS: Basophilic Stippling 1+ (0-2) /OIF; Large Platelet PRESENT; Ovalocytes 1+ (5-14) /OIF; Polychromasia 1+ (0-2) /OIF; Schistocytes 1+ (0-2) /OIF
[2025-06-12 09:56] LABS: Alanine Aminotransferase 26 U/L (0-40); Albumin Level 3.5 g/dL (3.5-5.0); Alkaline Phosphatase 192 U/L (39-117); Anion Gap 16 (12-20); Aspartate Amino Transferase 26 U/L (5-37); Blood Urea Nitrogen 33 mg/dL (9-16); Calcium 9.5 mg/dL (8.4-10.2); Carbon Dioxide 23 mmol/L (22-29); Chloride 106 mmol/L (96-108); Creatinine Clr Calc Pharmacy 115.1; Estimated Glomerular Filt Rate > 60; Magnesium 1.4 mg/dL (1.6-2.6); Potassium 4.3 mmol/L (3.3-5.1); Sodium 141 mmol/L (135-145); Total Protein 7.2 g/dL (6.5-8.0)
[2025-06-12 10:01] LABS: Band Neutrophils Percent 0 % (3-5); Neutrophils Absolute Manual 11.3 X10*3/uL (2.0-8.3)
[2025-06-12] MEDS: methADONE HCl 20 MG/2 ML ORAL.CONC PO (10:56)
[2025-06-12 11:53] VITALS: BP 123/73; PULSE 108; RESP 16; TEMP 36.3; O2SAT 94
--- NOTE | 2025-06-12 13:07 | P.PNIM_ITS ---
Subjective Subjective Date of Service: 06/12/25 Interval History: Asleep during evaluation today. Wakes up with the appropriate stimulation. Reports no new complaints today. Review of Systems Review of Systems: Yes all other systems are reviewed and are negative Physical Exam 2 Exam: Exam: General: A&O x3, oriented to time place person and situation. Cardiac: S1-S2 auscultated no S3-S4. Grade 3 diastolic murmur auscultated at tricuspid region, grade 3 diastolic murmur auscultated at pulmonic. Well- perfused. JVP identified. Respiratory: Normal breath sounds auscultated throughout all lung zones, without wheezing, rales. Normal rate. GI/ : No abdominal pain on palpation, no masses. Abdomen distended on palpation, however no ascites was identified. Hepatosplenomegaly identified on physical examination. MSK: Normal ambulation without pain at bony prominences or musculature. Lower extremities: Multiple varicose veins identified and lower extremities, with evidence of lipodermatosclerosis. Left anterior anthony scabbed wound, without pustules, fluctuance. Neurological: Normal neurological examination on overview, without obvious CN II-XII abnormalities. Vital Signs: Vital Signs: Last Vital Signs Temp 97.3 F 06/12/25 11:53 Pulse 108 H 06/12/25 11:53 Resp 16 06/12/25 11:53 BP 123/73 06/12/25 11:53 Pulse Ox 94 06/12/25 11:53 O2 Del Method Room Air 06/12/25 11:53 BMI result Body Mass Index 23.9 Objective Data Active Medications Acetaminophen (Acetaminophen 325 Mg Tablet) 650 mg PO Q6H PRN PRN Reason: Pain, Mild 1-3,fever,headache Last Admin: 06/07/25 23:47 Dose: 650 mg Documented By: DELVIN Albuterol/Ipratropium (Albuterol/Iprat 2.5/0.5mg 3 Ml Ampul.Neb) 3 ml INHALE Q4H PRN PRN Reason: Shortness of Breath/Wheezing Calcium Carbonate (Calcium Carbonate 750 Mg Tab.Chew) 750 mg PO Q4H PRN PRN Reason: Heartburn Cephalexin HCl (Cephalexin 500 Mg Capsule) 500 mg PO Q6H [facility] Last Admin: 06/12/25 09:11 Dose: 500 mg Documented By: JAY Doxycycline Monohydrate (Doxycycline Monohydrate 100 Mg Capsule) 100 mg PO Q12H [facility] Last Admin: 06/12/25 09:11 Dose: 100 mg Documented By: JAY Lactulose (Lactulose 20 Gm/30 Ml Solution) 10 gm PO DAILY [facility] Last Admin: 06/12/25 09:08 Dose: 10 gm Documented By: JAY Magnesium Hydroxide (Milk Of Magnesia 30 Ml Oral.Susp) 30 ml PO DAILY PRN PRN Reason: Constipation Magnesium Oxide (Magnesium Oxide 400 Mg Tablet) 800 mg PO DAILY [facility] Last Admin: 06/12/25 09:11 Dose: 800 mg Documented By: JAY Melatonin (Melatonin 3 Mg Tablet) 6 mg PO BEDTIME PRN PRN Reason: Insomnia Last Admin: 06/10/25 20:52 Dose: 6 mg Documented By: AUDREY Methadone HCl (Methadone Hcl 20 Mg/2 Ml Oral.Conc) 80 mg PO DAILY@0800 [facility] Methadone HCl (Methadone Hcl 20 Mg/2 Ml Oral.Conc) 15 mg PO DAILY@1700 [facility] Ondansetron HCl (Ondansetron Hcl 4 Mg/2 Ml Vial) 4 mg IVPUSH Q8H PRN PRN Reason: Nausea and Vomiting Polyethylene Glycol (Polyethylene Glycol 3350 17 Gm Powd.Pack) 17 gm PO DAILY PRN PRN Reason: Constipation Prednisone (Prednisone 20 Mg Tablet) 40 mg PO DAILY [facility] Last Admin: 06/12/25 09:21 Dose: 40 mg Documented By: JAY Rifaximin (Rifaximin 550 Mg Tablet) 550 mg PO BID [facility] Last Admin: 06/12/25 09:11 Dose: 550 mg Documented By: JAY Senna (Sennosides 8.6 Mg Tablet) 17.2 mg PO BEDTIME [facility] Last Admin: 06/11/25 21:44 Dose: 17.2 mg Documented By: FIGDIMICHAEL Sodium Chloride (0.9 % Sodium Chloride Flush 3 Ml Syringe) 3 ml IVFLUSH QSHIFT [facility] Last Admin: 06/12/25 09:10 Dose: 3 ml Documented By: JAY Trazodone HCl (Trazodone Hcl 50 Mg Tablet) 50 mg PO BEDTIME [facility] Last Admin: 06/11/25 22:08 Dose: 50 mg Documented By: IRENE Labs 06/12/25 08:42 06/12/25 08:42 Labs: Laboratory Results - last 24 hr 06/12/25 08:42 MCV 70.0 L MCH 19.9 L MCHC 28.4 L RDW 26.7 H Plt Count 325 MPV 9.8 Immature Gran % (Auto) Cancelled Neut % (Auto) Cancelled Lymph % (Auto) Cancelled [place] % (Auto) Cancelled Eos % (Auto) Cancelled Baso % (Auto) Cancelled Lymph # (Auto) Cancelled [place] # (Auto) Cancelled Eos # (Auto) Cancelled Baso # (Auto) Cancelled Abs Immat Gran (auto) Cancelled Absolute Neuts (auto) Cancelled Absolute Nucleated RBC 0.020 H Nucleated RBC % (auto) 0.1 Neutrophils % (Manual) 77 H Band Neutrophils % 0 L Lymphocytes % (Manual) 15 L Monocytes % (Manual) 3 Metamyelocytes % 3 Myelocytes % 2 Abs Neuts (Manual) 11.3 H Lymphocytes # (Manual) 2.2 Monocytes # (Manual) 0.4 Metamyelocytes # 0.4 Myelocytes # 0.3 Platelet Estimate NORMAL Large Platelets PRESENT Plt Morphology Comment NOTED RBC Morphology NOTED Polychromasia 1+ (0-2) Basophilic Stippling 1+ (0-2) Microcytosis 1+ (5-14) Ovalocytes 1+ (5-14) Schistocytes 1+ (0-2) Anion Gap 16 Estim Creat Clear Calc 115.1 Estimated GFR > 60 Random Glucose 93 Calcium 9.5 Magnesium 1.4 L* Total Bilirubin 0.6 AST 26 ALT 26 Alkaline Phosphatase 192 H Total Protein 7.2 Albumin 3.5 Assessment and Plan (1) Active intravenous drug use: Status: Acute (2) Heart failure with mildly reduced ejection fraction: Status: Acute (3) Tricuspid valve stenosis: Status: Acute (4) Mitral valve vegetation: Status: Acute (5) Pulmonary embolism: Status: Acute (6) Hepatic cirrhosis: Status: Acute (7) Pneumonia: Status: Acute (8) Pneumonitis due to crack cocaine: Status: Acute Plan 34-year-old male with a background history of PSUD/IVDU (heroin, fentanyl, cocaine), endocarditis s/p bioprosthetic tricuspid valve replacement 2019, septic pulmonary emboli and empyema, cardiomyopathy, hepatic cirrhosis, DVT/PE noncompliance apixaban, untreated chronic hepatitis-C, active mitral valve endocarditis (no treatment) and tricuspid valve stenosis, homelessness, presents to the hospital with hemoptysis and abdominal distention & actively intoxicated (heroin, fentanyl, cocaine), admitted with hemoptysis secondary to cocaine induced pneumonitis and superimposed pneumonia, active substance use disorder (heroin/fentanyl/cocaine), left lower extremity cellulitis. Hemoptysis Drug-induced pneumonitis (crack lung) Left lower lobe pneumonia Patient presenting to the hospital with complaints of hemoptysis. Actively using cocaine. Initial suspicion possibly secondary to pulmonary embolism, however CTA negative. Pulmonology consult on the patient, greatly appreciated. [place] to be secondary to multifactorial etiology including pneumonitis likely secondary to inhaled drugs & probable superimposed pneumonia. PLAN - continue doxycycline 100 mg b.i.d. p.o. - continue prednisone 40 mg OD p.o. (10 mg taper every 3 days) - cleared to restart Eliquis once his phlegm is clear of blood Acute DVT left lower extremity Possible thrombophlebitis History DVT History of pulmonary embolism (septic) Elevated D-dimer, CTA negative for pulmonary embolism. History of noncompliance with apixaban/anticoagulation Patient has a history of homelessness, and represents an elevated risk for TB CT chest negative - no evidence of tuberculosis PLAN - hold apixaban until hemoptysis resolves - monitor H&H - pulmonary recommendations appreciated Mitral valve endocarditis without active infection Tricuspid valve stenosis Prior bioprosthetic tricuspid valve replacement (endocarditis 2019) Cardiomyopathy Patient has been noncompliant with care, medications, follow-up. Intervention performed in 2019 for infective endocarditis with tricuspid valve vegetation s/p bioprosthetic replacement. Repeat echocardiography today revealing severe tricuspid valve stenosis, elevated right cardiac pressures. EF presumed normal until formal report. PLAN - cardiology evaluated the patient via curbside; greatly appreciate input. We will consult for formal interventions if appropriate - hold apixaban until hemoptysis resolves - monitor H&H - monitor BMP and BNP - I/O q.6 - Monitor blood cultures Hepatic cirrhosis Congestive hepatopathy (tricuspid stenosis) Untreated hepatitis-C Abdominal distension/Ascites Hepatic encephalopathy grade 1-2 Patient has identified hepatic cirrhosis. No large volume ascites identified. Likely secondary to congestive hepatopathy in the setting of right ventricular failure and elevated RV pressure is in the setting of severe tricuspid valve stenosis. Other obvious causative etiologies include untreated hepatitis-C infection; noncompliant with follow-up and intervention. Regarding hepatic encephalopathy, the patient has no overt asterixis, however is somnolent and tired. This could be secondary to recent use of heroin/fentanyl versus methadone. PLAN - continue lactulose - continue rifaximin - monitor mental status closely Left lower extremity cellulitis Currently on antibiotics for left lower extremity cellulitis. Possible superimposed component of thrombophlebitis May also have isolated underlying DVT. PLAN - continue antibiotics - await ultrasound lower extremity Active polysubstance use disorder Heroin and fentanyl abuse Cocaine abuse Patient has been seeking outpatient help with [facility] and now [facility] for detox Patient has insight as to the severity of his health concerns related to IV drug abuse including his mitral valve vegetation and stenosis of the tricuspid valve prosthesis Patient states being homeless is making his ability to stop using so much harder Case management consulted PLAN - Methadone as per addiction Medicine recommendations - addiction medicine consultation - [facility] - C[employer] - VTE: Apixaban on hold due to hemoptysis. SCDs ordered (no LE DVT based on ultrasound) - CODE STATUS: Full code - DIET: Regular Total time managing care of this patient today: 35 minutes. Quality Stroke Does the patient have a stroke diagnosis?: No Reason for No Anti-thrombotic by Day Two: Contraindicated VTE Prior VTE?: No VTE Risk Level:: Medical - moderate - high VTE Device Contraindication: N/A - Device Ordered VTE Drug Contraindication: Treatment Not Indicated
[2025-06-12 16:00] VITALS: BP 114/64; PULSE 105; RESP 18; TEMP 36.1; O2SAT 96
--- NOTE | 2025-06-12 16:09 | MHC.CM.PN ---
PER ROUNDS SPT NOT READY FOR DC DC PLAN REMAINS RETURNING TO STREETS
[2025-06-12 20:00] VITALS: BP 121/69; PULSE 78; RESP 14; TEMP 36.6; O2SAT 93
[2025-06-13 06:57] LABS: Hematocrit 30.3 % (42.0-52.0); Hemoglobin 8.9 g/dl (14.0-18.0); Mean Corpuscular HGB Conc 29.4 g/dl (31.0-36.0); Mean Corpuscular Hemoglobin 20.6 pg (27.0-33.0); Mean Corpuscular Volume 70.0 fL (80.0-98.0); NRBC Abs Auto 0.030 X10*3/uL (0.0-0.012); NRBC Pct Auto 0.2 /100WBC (0.0-0.2); Platelet Count 325 X10*3/uL (160-400); Red Blood Count 4.33 X10*6/uL (4.60-5.80); White Blood Count 18.1 X10*3/uL (4.8-10.8)
--- NOTE | 2025-06-13 07:02 | PC.NURSE ---
Refusing fall risk interventions, Homeless, IVDU.
[2025-06-13 07:30] LABS: Band Neutrophils Percent 2 % (3-5); Eosinophils Absolute Manual 0.4 X10*3/uL (0.0-0.4); Eosinophils Percent Manual 2 % (0-4); Lymphocytes Absolute Manual 2.5 X10*3/uL (1.2-4.9); Lymphocytes Percent Manual 14 % (20-40); Metamyelocytes Absolute 0.7 X10*3/uL; Metamyelocytes Percent 4 %; Monocytes Absolute Manual 1.4 X10*3/uL (0.1-1.2); Monocytes Percent Manual 8 % (2-11); Myelocytes Absolute 0.2 X10*/uL; Myelocytes Percent 1 %; Neutrophils Absolute Manual 12.9 X10*3/uL (2.0-8.3); Neutrophils Percent Manual 69 % (45-73)
[2025-06-13 07:32] LABS: Microcytosis 2+ (15-30) /OIF; RBC Morphology NOTED
[2025-06-13 07:33] LABS: Ovalocytes 1+ (5-14) /OIF; Polychromasia 1+ (0-2) /OIF; Schistocytes 1+ (0-2) /OIF
[2025-06-13 07:42] VITALS: BP 128/61; PULSE 95; RESP 18; TEMP 36.8; O2SAT 96
[2025-06-13] MEDS: methADONE HCl 20 MG/2 ML ORAL.CONC 80 MG PO (08:10)
[2025-06-13] MEDS: 0.9 % Sodium Chloride Flush 3 ML SYRINGE IVFLUSH (08:10)
[2025-06-13] MEDS: Ferrous Sulfate 324 MG TABLET.DR PO (08:37)
--- NOTE | 2025-06-13 09:34 | PM.DS ---
DS: Providers Provider Date of Service: 06/13/25 Date of admission: 06/06/25 23:40 Date of discharge: 06/13/25 Primary care physician: [facility] Consults: 06/07/25 00:13 Addiction Medicine Provider Routine Consulting Provider: Addiction Covering Reason for consultation: chronic DOMINIK, s/p endocarditis with bioprosthetic valve still using Has provider been notified: No Consult to Pulmonology Routine Consulting Provider: [facility] Reason for consultation: hemoptysis on eliquis 06/07/25 01:38 Addiction Medicine Provider Routine Consulting Provider: Addiction Covering Reason for consultation: IVDA Consult to Cardiology Routine Consulting Provider: [facility] Reason for consultation: MV vegetation, TV prosthesis stenosis 06/07/25 02:10 Consult to Case Management Routine Comment: Continued IVDA, homelessness, pt asking for help DS: Diagnosis Discharge Diagnosis (1) Active intravenous drug use: Status: Inactive (2) Heart failure with mildly reduced ejection fraction: Status: Inactive (3) Tricuspid valve stenosis: Status: Inactive (4) Mitral valve vegetation: Status: Inactive (5) Pulmonary embolism: Status: Inactive (6) Hepatic cirrhosis: Status: Inactive (7) Pneumonia: Status: Acute (8) Pneumonitis due to crack cocaine: Status: Acute DS: Summary Hospital Course Hospital Course: admission Chief Complaint: hemoprtysis 34-year-old male with a PMH significant for?continuing polysubstance use disorder with IVDU (cocaine, heroin, fentanyl), endocarditis s/p bioprosthetic tricuspid valve replacement 2019 complicated by TV valve stenosis, septic pulmonary emboli and empyema, 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 Patient had left prior to having CTA to rule out PE noting patient's history and noncompliance with Eliquis. Patient did return today and chest CTA is negative for PE with no acute aortic syndrome. Lungs are considered clear. There is some small perihepatic free fluid which should be correlated with the abdominal imaging. Additional concerns on arrival included hemoptysis with previously identified mitral valve vegetation and stenosis of tricuspid valve prosthesis. Patient also having extensive abdominal distention. Possible cellulitis in left lower extremity. Patient is very groggy on presentation with a positive tox screen for heroin, fentanyl and cocaine. Patient states he admitted himself into [facility] approximately 4 days prior and signed himself out as he did not like the idea of being locked up. After that patient was calling [facility] for detox bed which she has been to before and as he was getting ready to go to [facility], his mother received the call from the ED to have him come in for the elevated D-dimer. Patient is a very reflective on his current acute and chronic medical issues that ultimately are possibly life-threatening as patient continues to use IV drugs. Patient feels that being homeless is making it more difficult to stop using. Patient denies suicidal ideations today. Patient is well-versed in the fact that he has a mitral valve vegetation/endocarditis with stenosis of the tricuspid valve prosthesis. This is what likely is contributing to his hemoptysis. The emergency department has ordered a TB screen which is pending. Initial H&H on arrival was 7.8 and 27.2 and H&H has been since repeated 8 hours later and is 7.7 and 26.8. Patient is not requiring transfusion as hemodynamics are currently stable. D-dimer was repeated today and went from [id number]. INR is 2.2. Patient has significant swelling in the abdomen, likely ascites. Patient states on a previous admission this year a paracentesis was attempted but patient could not tolerate the pain of the procedure and stopped the procedure before intervention could occur. Patient has been seen by GI and previous admissions for his known hepatitis-C that is untreated with rising RNA viral loads. Patient also has known cirrhosis of the liver. Patient has not attempted outpatient GI follow-up start treating his hepatitis-C. Patient denies any alcohol use. Ammonia level is pending. Pt is presenting alert and orientated with some possible encephalopathy but more so groggy with possible withdrawal from illicit drug use. AST is 41, ALT 25, alk-phos 227 and total bilirubin 1.0. Patient has had also chronic issues with his left lower leg with now a closed wound but mild edema with redness and swelling. Venous Dopplers done of the lower extremity on 06/04/2025 was negative for DVT. Last x-ray of left lower extremity was March of 2025. Patient states he is able to bear weight but is having pain especially in the left lower leg. Repeat venous Dopplers and x-ray of left leg are pending. Patient is being admitted for hemoptysis, mitral valve vegetation/endocarditis with tricuspid valve prosthesis stenosis, ascites, left lower leg cellulitis with possible DVT and substance use disorder. Hospital course: 34-year-old male with a background history of PSUD/IVDU (heroin, fentanyl, cocaine), endocarditis s/p bioprosthetic tricuspid valve replacement 2019, septic pulmonary emboli and empyema, cardiomyopathy, hepatic cirrhosis, DVT/PE noncompliance apixaban, untreated chronic hepatitis-C, active mitral valve endocarditis (no treatment) and tricuspid valve stenosis, homelessness, presents to the hospital with hemoptysis and abdominal distention & actively intoxicated (heroin, fentanyl, cocaine), admitted with hemoptysis secondary to cocaine induced pneumonitis and superimposed pneumonia, active substance use disorder (heroin/fentanyl/cocaine), left lower extremity cellulitis. Hemoptysis due to Drug-induced pneumonitis (crack lung) and possible Left lower lobe pneumonia--PE was ruled out by CTA and no CT evidence of TB. Treated with antibiotics including Keflex and Doxy, see by air brush operator with recommendation for Po Doxy and Prednisone, clinically has responded well. No further hemptysis at this point, will complete couse of doxycyline and Prednisone dragan and encourage to stop ilicit drug use including snoring cocaine. h/o DVT left lower extremity, US this time show no DVT. CTA showed no PE. Abixiban restarted with no evidence of further bleeding or hemoptysis. h/o Mitral valve endocarditis without active infection, Tricuspid valve stenosis, Prior bioprosthetic tricuspid valve replacement (endocarditis 2019) , Cardiomyopathy. Patient has been noncompliant with care, medications, follow-up. Intervention performed in 2019 for infective endocarditis with tricuspid valve vegetation s/p bioprosthetic replacement. Repeat echocardiography today revealing severe tricuspid valve stenosis, elevated right cardiac pressures. No acute cardiac issues Hepatic cirrhosis Congestive hepatopathy (tricuspid stenosis) Untreated hepatitis-C Abdominal distension/Ascites Hepatic encephalopathy grade 1-2 Patient has identified hepatic cirrhosis. No large volume ascites identified. Likely secondary to congestive hepatopathy in the setting of right ventricular failure and elevated RV pressure is in the setting of severe tricuspid valve stenosis. Other obvious causative etiologies include untreated hepatitis-C infection; noncompliant with follow-up and intervention. Regarding hepatic encephalopathy, the patient has no overt asterixis, however is somnolent and tired. This could be secondary to recent use of heroin/fentanyl versus methadone. PLAN - continue lactulose - continue rifaximin - monitor mental status closely Left lower extremity cellulitis Currently on antibiotics for left lower extremity cellulitis. Possible superimposed component of thrombophlebitis May also have isolated underlying DVT. PLAN - continue antibiotics (Doxycycline) US negative. Active polysubstance use disorder Heroin and fentanyl abuse Cocaine abuse Patient has been seeking outpatient help with [facility] and now [facility] for detox Patient has insight as to the severity of his health concerns related to IV drug abuse including his mitral valve vegetation and stenosis of the tricuspid valve prosthesis Patient states being homeless is making his ability to stop using so much harder Case management consulted Continue Methadone as per addiction Medicine recommendations, addiction medicine consultation Time Attestation Discharge Coordination Time (in mins): 30 Quality: Safe Use of Opioids Does Pt have an Active Cancer Diagnosis on the Problem List?: No Quality: Stroke Does the patient have a stroke diagnosis?: No Physical Exam Vital Signs: Vital Signs: Last Vital Signs Temp 98.2 F 06/13/25 07:42 Pulse 95 06/13/25 07:42 Resp 18 06/13/25 07:42 BP 128/61 06/13/25 07:42 Pulse Ox 96 06/13/25 07:42 O2 Del Method Room Air 06/13/25 07:42 BMI result Body Mass Index 23.9 DS: Data Data Completed and Pending Completed studies during hospitalization [Text1]: Procedures Detoxification Services for Substance Abuse Treatment (11/18/21) Insertion of Endotracheal Airway into Trachea, Via Natural or Artificial Opening (03/03/23) Insertion of Infusion Device into Left Basilic Vein, Percutaneous Approach (03/16/23) Insertion of Infusion Device into Superior Vena Cava, Percutaneous Approach (03/03/23) Introduction of Vasopressor into Central Vein, Percutaneous Approach (03/03/23) Respiratory Ventilation, Greater than 96 Consecutive Hours (03/03/23) Transfusion of Nonautologous Red Blood Cells into Peripheral Vein, Percutaneous Approach (03/03/25) Ultrasonography of Superior Vena Cava, Guidance (03/03/23) Labs on day of discharge: Laboratory Results - last 24 hr 06/12/25 06/13/25 08:42 05:52 WBC 18.1 H RBC 4.33 L Hgb 8.9 L Hct 30.3 L MCV 70.0 L MCH 20.6 L MCHC 29.4 L RDW 26.2 H Plt Count 325 MPV 10.3 Immature Gran % (Auto) Cancelled Neut % (Auto) Cancelled Lymph % (Auto) Cancelled [place] % (Auto) Cancelled Eos % (Auto) Cancelled Baso % (Auto) Cancelled Lymph # (Auto) Cancelled [place] # (Auto) Cancelled Eos # (Auto) Cancelled Baso # (Auto) Cancelled Abs Immat Gran (auto) Cancelled Absolute Neuts (auto) Cancelled Absolute Nucleated RBC 0.030 H Nucleated RBC % (auto) 0.2 Neutrophils % (Manual) 77 H 69 Band Neutrophils % 0 L 2 L Lymphocytes % (Manual) 15 L 14 L Monocytes % (Manual) 3 8 Eosinophils % (Manual) 2 Metamyelocytes % 3 4 Myelocytes % 2 1 Abs Neuts (Manual) 11.3 H 12.9 H Lymphocytes # (Manual) 2.2 2.5 Monocytes # (Manual) 0.4 1.4 H Eosinophils # (Manual) 0.4 Metamyelocytes # 0.4 0.7 Myelocytes # 0.3 0.2 Nucleated RBCs 1 H Platelet Estimate NORMAL NORMAL Large Platelets PRESENT Plt Morphology Comment NOTED NORMAL RBC Morphology NOTED NOTED Polychromasia 1+ (0-2) 1+ (0-2) Basophilic Stippling 1+ (0-2) Microcytosis 1+ (5-14) 2+ (15-30) Ovalocytes 1+ (5-14) 1+ (5-14) Schistocytes 1+ (0-2) 1+ (0-2) Sodium 141 Potassium 4.3 Chloride 106 Carbon Dioxide 23 Anion Gap 16 BUN 33 H Creatinine 0.80 Estim Creat Clear Calc 115.1 Estimated GFR > 60 Random Glucose 93 Calcium 9.5 Magnesium 1.4 L* Total Bilirubin 0.6 AST 26 ALT 26 Alkaline Phosphatase 192 H Total Protein 7.2 Albumin 3.5 Discharge Plan Discharge Anticipated Discharge Date/Time: 06/13/25 09:16 Patient Disposition: Home, Self-Care Discharge Diagnosis: chemical pneumonitis due to Referrals: [facility] Program: [facility] [Other] - 1 Week Referral Note: Referral placed for CSS placement. Please call to follow-up regarding availability and placement [facility] Program: [facility] [Other] - 1 Week [facility]N: DOMINIK access [Other] - 1 Week [facility] [Primary Care Provider, Medical] - 1 Week Discharge Medications: New doxycycline monohydrate 100 mg Capsule 100 mg PO Q12H Qty: 8 0RF Xifaxan 550 mg Tablet 550 mg PO BID Qty: 180 0RF prednisone 10 mg tablet See Taper PO DIRECTED Qty: 20 0RF Taper: Prednisone 40 mg daily for 3 Days and 0 Hour 30 mg daily for 3 Days and 0 Hour 20 mg daily for 3 Days and 0 Hour 10 mg daily for 3 Days and 0 Hour Rx Instructions: see taper instructions Continued methadone [Methadone Intensol] 10 mg/mL Concentrate 120 mg PO DAILY Eliquis 5 mg tablet 5 mg PO BID 30 Days Qty: 60 0RF trazodone 50 mg tablet 50 mg PO BEDTIME hydroxyzine pamoate 50 mg capsule 50 mg PO TID PRN (Reason: Anxiety) ferrous sulfate 325 mg (65 mg iron) tablet 325 mg PO Q OTHER DAY furosemide 20 mg tablet 20 mg PO DAILY gabapentin 100 mg capsule 200 mg PO TID albuterol sulfate [Ventolin HFA] 90 mcg/actuation HFA aerosol inhaler 1 - 2 puff inhalation Q4-6H PRN (Reason: wheezing) sertraline 50 mg tablet 50 mg PO DAILY Discharge Orders: Discharge Order (Routine); Ordered 06/13/25 Ordered By: Jorge Durant Diet: Advance to usual diet Activity on Discharge: As tolerated Stand Alone Forms: Patient Portal Discharge page Print Language: Citizen [place] Care Plan Goals: recovery from pneumonitis Health Concerns: pneumonitis hemoptysis\ subtance use disorder chronic endocarditis h/o PE on anticoagulation Plan of Treatment: Take Doxycyline as directed Take Prednisone as directed Follow up with your doctor as directed Avoid ilicit substance use Follow up with your Doctor in a week Assessment: See above Patient Instructions: Pneumonitis (DC) Discharge Date/Time: 06/13/25 14:29
[2025-06-13 11:52] VITALS: BP 128/70; PULSE 109; RESP 20; TEMP 36.9; O2SAT 95
--- NOTE | 2025-06-13 12:07 | MHC.RECOVRN ---
T/W met with pt. in 351-1 following report of his D/C today. Reviewed CSS options with pt. and bed search as follows: [facility]-left message [facility]-left message [facility] [place] -on beds and 50 person wait list [facility] and [facility]-have availability. Referrals sent. Met with pt. and reviewed this information with him. Report to GENEVA Luna and she will meet with pt. T/W to F/U PRN.
[2025-06-13] MEDS: methADONE HCl 20 MG/2 ML ORAL.CONC 30 MG PO (13:36)
--- NOTE | 2025-06-13 14:30 | MHC.RECOVRN ---
Pt D/C from inpt. prior to securing CCS bed. T/W gave pt. numbers to potential CCS programs that I had faxed referrals to and encouraged him to F/U on own. Pt received Last dose letter from nurse and encouraged to bring to [facility] tomorrow. T/W placed calls to [facility] and [facility] to let them know of pt. D/C [facility] stated that after reviewing pt's referral that he would need a higher level of care and will communicate this to him if/when he calls back.
--- NOTE | 2025-06-13 15:17 | MHC.CM.PN ---
pt dcd home self care will follow up with css facilites provided by addiction medicine with avaliable beds
--- NOTE | 2025-06-13 18:50 | HO.ADDICTPRO ---
Subjective Subjective Date of Service: 06/13/25 Reason For Visit: hemoptysis Interim History: Patient seen in follow up for OUD Per hospitalist, patient medically cleared for discharge. reservations manager met with patient and placed CSS referrals--patient expressing interest in admission to [facility], however he states that he has to go to the DTA office to address an issue with his assistance, so he does not want to discharge directly to [facility]. Methadone dose increased to 110mg today. He appeared overall comfortable when seen by t/w, but still with some SOB. Patient showered and shaved independently. Asked if he felt comfortable to discharge and he reported yes. States his plan is to follow up with CSS from the community tomorrow. Review of Systems Constitutional: Reports as per HPI and Reports no additional constitutional complaints Mental Status Exam Mental Status Exam Level of Consciousness: Awake and Appropriate Patient Behavior: Appropriate and Talkative Affect Description: Calm Speech Pattern: Clear Thought Process: Intact Thought Content: positive for Intact Judgement: Good Diagnostics Vital Signs (24Hr): Vital Signs - 24 hr 06/12/25 20:00 06/13/25 07:42 06/13/25 11:52 Temperature 97.9 F 98.2 F 98.5 F Pulse Rate 78 95 109 H Respiratory Rate 14 18 20 Blood Pressure 121/69 128/61 128/70 Pulse Oximetry 93 96 95 Oxygen Delivery Method Room Air Room Air Room Air BMI result Body Mass Index 23.9 Labs 06/13/25 05:52 06/12/25 08:42 Labs: Laboratory Results - last 48 hr 06/12/25 06/13/25 08:42 05:52 WBC 14.7 H 18.1 H RBC 4.63 4.33 L Hgb 9.2 L 8.9 L Hct 32.4 L 30.3 L MCV 70.0 L 70.0 L MCH 19.9 L 20.6 L MCHC 28.4 L 29.4 L RDW 26.7 H 26.2 H Plt Count 325 325 MPV 9.8 10.3 Immature Gran % (Auto) Cancelled Cancelled Neut % (Auto) Cancelled Cancelled Lymph % (Auto) Cancelled Cancelled Brown % (Auto) Cancelled Cancelled Eos % (Auto) Cancelled Cancelled Baso % (Auto) Cancelled Cancelled Lymph # (Auto) Cancelled Cancelled Brown # (Auto) Cancelled Cancelled Eos # (Auto) Cancelled Cancelled Baso # (Auto) Cancelled Cancelled Abs Immat Gran (auto) Cancelled Cancelled Absolute Neuts (auto) Cancelled Cancelled Absolute Nucleated RBC 0.020 H 0.030 H Nucleated RBC % (auto) 0.1 0.2 Neutrophils % (Manual) 77 H 69 Band Neutrophils % 0 L 2 L Lymphocytes % (Manual) 15 L 14 L Monocytes % (Manual) 3 8 Eosinophils % (Manual) 2 Metamyelocytes % 3 4 Myelocytes % 2 1 Abs Neuts (Manual) 11.3 H 12.9 H Lymphocytes # (Manual) 2.2 2.5 Monocytes # (Manual) 0.4 1.4 H Eosinophils # (Manual) 0.4 Metamyelocytes # 0.4 0.7 Myelocytes # 0.3 0.2 Nucleated RBCs 1 H Platelet Estimate NORMAL NORMAL Large Platelets PRESENT Plt Morphology Comment NOTED NORMAL RBC Morphology NOTED NOTED Polychromasia 1+ (0-2) 1+ (0-2) Basophilic Stippling 1+ (0-2) Microcytosis 1+ (5-14) 2+ (15-30) Ovalocytes 1+ (5-14) 1+ (5-14) Schistocytes 1+ (0-2) 1+ (0-2) Sodium 141 Potassium 4.3 Chloride 106 Carbon Dioxide 23 Anion Gap 16 BUN 33 H Creatinine 0.80 Estim Creat Clear Calc 115.1 Estimated GFR > 60 Random Glucose 93 Calcium 9.5 Magnesium 1.4 L* Total Bilirubin 0.6 AST 26 ALT 26 Alkaline Phosphatase 192 H Total Protein 7.2 Albumin 3.5 Imaging Radiology Impressions: ITS Impressions Tibia/Fibula X-Ray 06/07/25 07:15 IMPRESSION: Normal left tibia and fibula. Electronically signed by: Cory Krishnan MD 06/07/2025 08:26 AM EDT RP Venous Duplex 06/07/25 08:50 IMPRESSION: No evidence of deep venous thrombosis involving the bilateral lower extremities. Electronically signed by: Cory Krishnan MD 06/07/2025 09:13 AM EDT Abdomen/Pelvis CT 06/07/25 10:44 IMPRESSION: There is evidence of portal hypertension. There is hepatomegaly with recannulization of the umbilical vein and a finely nodular liver surface suggesting cirrhosis and mild to moderate ascites which is improved since the prior. Constipation. Fleischner guidelines were followed. Electronically signed by: Jarred Escudero MD 06/08/2025 12:24 PM EDT RP Head CT 06/08/25 10:44 IMPRESSION: No acute intracranial abnormality. Electronically signed by: Jarred Escudero MD 06/08/2025 12:15 PM EDT RP Medications Allergies Allergies Allergy/AdvReac Type Severity Reaction Status Date / Time No Known Allergies (No Known Allergy Verified 06/06/25 14:15 Allergies*) Assessment & Plan Assessment & Plan (1) Opioid use disorder, severe, dependence: Status: Acute Code(s): F11.20 - Opioid dependence, uncomplicated Assessment and Plan: methadone 110mg today--last dose letter provided to patient overdose prevention discussion patient to follow up in the community with [facility] Total time managing care of this patient today _30___ minutes.
== END 2025-06-13 14:29 | disposition home or self-care (01) | DRG 816 ==
LOC: HO.ED 21:09 → HO.EDOVER 23:44 → HO.IMC 06-07 18:01 → HO.S3 06-12 01:26
PROVIDERS: Hospitalist; Nurse Practitioner Family; Physician Assistant Medical; Admitting Provider Student in an Organized Health Care Education/Training Program; Emergency Provider Emergency Medicine; Visit Provider Internal Medicine
DX: T40.5X1A Poisoning by cocaine, accidental (unintentional), initial encounter (principal); K76.82 Hepatic encephalopathy; J18.9 Pneumonia, unspecified organism; R18.8 Other ascites; T82.857A Stenosis of other cardiac prosthetic devices, implants and grafts, initial encounter; K74.60 Unspecified cirrhosis of liver; L03.116 Cellulitis of left lower limb; R04.2 Hemoptysis; Y71.2 Prosthetic and other implants, materials and accessory cardiovascular devices associated with adverse incidents; F17.210 Nicotine dependence, cigarettes, uncomplicated; F11.20 Opioid dependence, uncomplicated; D64.9 Anemia, unspecified; B18.2 Chronic viral hepatitis C; Z91.148 Patient's other noncompliance with medication regimen for other reason; F14.10 Cocaine abuse, uncomplicated; I05.9 Rheumatic mitral valve disease, unspecified; J70.4 Drug-induced interstitial lung disorders, unspecified; F19.90 Other psychoactive substance use, unspecified, uncomplicated; Z59.02 Unsheltered homelessness; Z71.6 Tobacco abuse counseling; Z91.199 Patient's noncompliance with other medical treatment and regimen due to unspecified reason; Z86.718 Personal history of other venous thrombosis and embolism; Z79.01 Long term (current) use of anticoagulants; Z79.899 Other long term (current) drug therapy
CPT/HCPCS: 36415; 70450; 71275; 73590; 74176; 80048; 80053; 80307; 81001; 82140; 82272; 82550; 83735; 84484; 85007; 85014; 85018; 85025; 85027; 85379; 85610; 86480; 86850; 86900; 86901; 93005; 93306; 93970; 99285; 99499; J2470; Q9957; Q9967; S9485

== ENCOUNTER → 2025-06-06 14:19 | Outpatient (BNV) | payer MEDICAID, SELFPAY | PROVIDERS: Admitting Provider Student in an Organized Health Care Education/Training Program; Emergency Provider Emergency Medicine; Visit Provider Internal Medicine Cardiovascular Disease | DX: I45.10 Unspecified right bundle-branch block (principal) | CPT/HCPCS: 93010 ==

== ENCOUNTER → 2025-06-06 21:32 | Outpatient (BNV) | payer MEDICAID, SELFPAY | PROVIDERS: Admitting Provider Student in an Organized Health Care Education/Training Program; Emergency Provider Emergency Medicine; Visit Provider Student in an Organized Health Care Education/Training Program | DX: R07.1 Chest pain on breathing (principal) | CPT/HCPCS: 71275 ==

== ENCOUNTER 2025-06-06 23:40 | Outpatient (BNV) | payer MEDICAID, SELFPAY | END 2025-06-11 20:19 | PROVIDERS: Admitting Provider Student in an Organized Health Care Education/Training Program; Emergency Provider Emergency Medicine; Visit Provider Internal Medicine | DX: I45.10 Unspecified right bundle-branch block (principal); R00.0 Tachycardia, unspecified | CPT/HCPCS: 93010 ==

== ENCOUNTER 2025-06-06 23:40 | Outpatient (BNV) | payer MEDICAID, SELFPAY | END 2025-06-07 07:00 | PROVIDERS: Admitting Provider Student in an Organized Health Care Education/Training Program; Emergency Provider Emergency Medicine; Visit Provider Internal Medicine Cardiovascular Disease | DX: I51.7 Cardiomegaly (principal); T82.857A Stenosis of other cardiac prosthetic devices, implants and grafts, initial encounter; I34.0 Nonrheumatic mitral (valve) insufficiency; I51.89 Other ill-defined heart diseases | CPT/HCPCS: 93306 ==

== ENCOUNTER 2025-06-06 23:40 | Outpatient (BNV) | payer MEDICAID, SELFPAY | END 2025-06-08 10:44 | PROVIDERS: Admitting Provider Student in an Organized Health Care Education/Training Program; Emergency Provider Emergency Medicine; Visit Provider Radiology Diagnostic Radiology | DX: I33.0 Acute and subacute infective endocarditis (principal); R41.82 Altered mental status, unspecified | CPT/HCPCS: 70450 ==

== ENCOUNTER 2025-06-06 23:40 | Outpatient (BNV) | payer MEDICAID, SELFPAY | END 2025-06-07 07:15 | PROVIDERS: Admitting Provider Student in an Organized Health Care Education/Training Program; Emergency Provider Emergency Medicine; Visit Provider Radiology Diagnostic Radiology | DX: R22.43 Localized swelling, mass and lump, lower limb, bilateral (principal); M79.605 Pain in left leg | CPT/HCPCS: 73590; 93970 ==

== ENCOUNTER → 2025-06-06 23:40 | Outpatient (BNV) | payer MEDICAID, SELFPAY | PROVIDERS: Admitting Provider Student in an Organized Health Care Education/Training Program; Emergency Provider Emergency Medicine; Visit Provider Nurse Practitioner Family | DX: F19.10 Other psychoactive substance abuse, uncomplicated (principal); I50.22 Chronic systolic (congestive) heart failure; T82.01XA Breakdown (mechanical) of heart valve prosthesis, initial encounter; I33.0 Acute and subacute infective endocarditis; B19.20 Unspecified viral hepatitis C without hepatic coma; R04.2 Hemoptysis | CPT/HCPCS: 99223; 99499 ==

== ENCOUNTER → 2025-06-06 23:40 | Outpatient (BNV) | payer OTHER, SELFPAY | PROVIDERS: Admitting Provider Student in an Organized Health Care Education/Training Program; Emergency Provider Emergency Medicine; Visit Provider Nurse Practitioner Psychiatric/Mental Health | DX: F11.20 Opioid dependence, uncomplicated (principal) | CPT/HCPCS: 99232 ==

== ENCOUNTER → 2025-06-06 23:40 | Outpatient (BNV) | payer MEDICAID, SELFPAY | PROVIDERS: Admitting Provider Student in an Organized Health Care Education/Training Program; Emergency Provider Emergency Medicine; Visit Provider Hospitalist | DX: F19.10 Other psychoactive substance abuse, uncomplicated (principal); R04.2 Hemoptysis; J67.9 Hypersensitivity pneumonitis due to unspecified organic dust; J18.9 Pneumonia, unspecified organism | CPT/HCPCS: 99223 ==

== ENCOUNTER 2025-07-19 16:57 | Emergency (ER) | payer MEDICAID, SELFPAY ==
--- OUTSIDE RECORDS SUMMARY | 2025-07-15 10:40 | XMS_ITS | Encounter Summary ---
Author Organization [employer] Address [address] [place] [address] Care Team Providers Care Associate Dentist Name Role Phone TolatoyaAlba NP Primary Care Provider [phone] Reason for Referral * Consultation (Routine) - Authorized Specialty Diagnoses / Procedures Referred By Merle clavillo Referred To Contact Vascular Surgery Diagnoses Venous stasis dermatitis of both lower extremities Bleeding from varicose veins of left lower extremity Daniela Vaughn MD [address] [place] [address] Phone: tel: fax: [facility] [address] [place] [address] Phone: tel: fax: Referral ID Status Reason Start Date Expiration Date Visits Requested Visits Authorized [id number] Authorized Specialty Services Required 07/15/2025 07/15/2026 1 1 Encounter Details Date Type Department Care Team (Late st Contact Info) Description 07/15/2025 10:40 AM EDT Office Visit [facility] [address] [place], [place] [phone] Daniela Vaughn MD [address] [place], [place] [phone] Venous stasis dermatitis of both lower extremities (Primary Dx); Bleeding from varicose veins of left lower extremity Social History Tobacco Use Types Packs/Day Years Used Date Smoking Tobacco: Every Day Cigarettes Passive Smoke Exposure: Current Smokeless Tobacco: Never Tobacco Cessation:Ready to Q [...] Sign Reading Time Taken Comments Blood Pressure 126/71 07/15/2025 10:20 AM EDT Pulse 93 07/15/2025 10:20 AM EDT Temperature 36.9 C (98.5 F) 07/15/2025 10:20 AM EDT Respiratory Rate 25 07/15/2025 10:20 AM EDT Oxygen Saturation 92% 07/15/2025 10:20 AM EDT Inhaled Oxygen Concentration - - Weight 80.1 kg (176 lb 8 oz) 07/15/2025 10:20 AM EDT Height 167.6 cm (5' 6 ) 07/15/2025 10:20 AM EDT Body Mass Index 28.49 07/15/2025 10:20 AM EDT documented in this encounter Progress Notes * Daniela Vaughn MD - 07/15/2025 10:40 AM EDT SUBJECTIVE: Norberto Marquez is a 34 y.o. year old male who presents for Walk In Center/varicosities. Denies recentillness, injury, or hospitalization. Acute Concerns: Patient complaining of very itchy varicose veins on and off for few months. Thought to have popped and turned into ulcerations that there is antibiotic treatment. He has been referred previously to vascular surgeon but apparently was told that he did not need the surgery. He has had similar symptoms for the past few years, he is now wearing compression stockings with mild improvement of leg edemabut not itchiness. He denies fever, chills. He lives in recovery home and is currently on methadone, denies use of any recreational substance within the past few months Social History Social History Narrative Not on file Problem List[1] Family History[2] Review of Systems Constitutional: Negative for fever. HENT: Negative for congestion, ear pain, rhinorrhea and sore throat. Eyes: Negative for pain and discharge. Respiratory: Negative for cough and shortness of breath. Cardiovascular: Negative for chest pain. Gastrointestinal: Negative for abdominal pain, constipation, diarrhea and nausea. Endocrine: Negative for polydipsia. Genitourinary: Negative for dysuria and frequency. Musculoskeletal: Negative for arthralgias, back pain and neck pain. Neurological: Negative for dizziness, numbness and headaches. Psychiatric/Behavioral: Negative for agitation. OBJECTIVE: Vitals: 07/15/25 1020 BP: 126/71 Pulse: 93 Resp: 25 Temp: 98.5 ??F (36.9 ??C) SpO2: 92% Physical Exam Constitutional: Appearance: Normal appearance. HENT: Right Ear: Tympanic membrane and ear canal normal. Left Ear: Tympanic membrane and ear canal normal. Mouth/Throat: Mouth: Mucous membranes are moist. Pharynx: No oropharyngeal exudate or posterior oropharyngeal erythema. Eyes: Pupils: Pupils are equal, round, and reactive to light. Cardiovascular: Rate and Rhythm: Normal rate and regular rhythm. Heart sounds: No murmur heard. Comments: Varicosities on BL lower extremities grade 3 to thighs, there is an area of crusting and healed ulceration medial to the tibial tuberosity on the left knee. No other ulceration. Positive chronic hyperchromic skin changes distally on lower extremities. Pulmonary: Breath sounds: Normal breath sounds. No wheezing. Abdominal: General: Bowel sounds are normal. Palpations: Abdomen is soft. Tenderness: There is no abdominal tenderness. Musculoskeletal: General: No tenderness. Normal range of motion. Cervical back: Normal range of motion. No tenderness. Right lower leg: No edema. Left lower leg: No edema. Skin: General: Skin is warm. Neurological: General: No focal deficit present. Mental Status: He is alert and oriented to person, place, and time. Psychiatric: Mood and Affect: Mood normal. Problem List Items Addressed This Visit Venous stasis dermatitis of both lower extremities - Primary Patient will use betamethasone ointment twice daily for 2 weeks then once daily. Advised to apply compression and come to the walk-in center or ED if he has variceal bleeding. Will refer to vascular surgeon for varicectomy, given recurrent bleeding, dermatitis and other complications he may need surgical intervention Relevant Orders Referral to Vascular Surgery Bleeding from varicose veins of left lower extremity Relevant Orders Referral to Vascular Surgery Follow Up: Medications Ordered Prior to Encounter[3] [1] Patient Active Problem List Diagnosis Alcohol dependence (CMS/HCC) Heroin dependence (CMS/HCC) Ascites Bacteremia Bacterial arthritis (CMS/HCC) Cirrhosis of liver (CMS/HCC) Cocaine dependence (CMS/HCC) Hepatosplenomegaly Infective endocarditis of tricuspid valve Osteomyelitis [...] of right hand (CMS/HCC) Pneumonia Polysubstance abuse ([facility]/HCC) 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 Steatosis, liver Shortness of breath Sepsis (CMS/HCC) S/P tricuspid valve replacement Right heart failure ([facility]/HCC) Heart failure with mildly reduced ejection fraction ([facility]/HCC) Rhabdomyolysis Hemorrhage of varicose veins of lower extremity, bilateral Hypervolemia Bilateral lower extremity edema Cellulitis of left lower extremity Drug intoxication (CMS/HCC) Influenza Left leg pain Open wound of left lower leg Respiratory syncytial virus (RSV) Anemia of chronic disease Anemia Cellulitis of left leg Abdominal pain Bleeding from varicose veins of left lower extremity Varicose veins of left lower extremity with inflammation Drug abuse (CMS/HCC) Opioid use disorder, severe, dependence ([facility]/HCC) History of pulmonary embolism Pulmonary embolism ([facility]/HCC) Chronic hepatitis C ([facility]) HCV (hepatitis C virus) Portal hypertension ([facility]) Venous stasis dermatitis of both lower extremities [2] No family history on file. [3] Current Outpatient Medications on File Prior to Visit Medication Sig Dispense Refill Albuterol Sulfate (ProAir RespiClick) 108 (90 Base) MCG/ACT aerosol powder TAKE 2 PUFFS BY MOUTH EVERY 4 TO 6 HOURS NEEDED FOR SHORTNESS OF BREATH /WHEEZE 1 each 0 Blood Pressure kit 1 each 2 times daily. 1 kit 0 docusate sodium (Colace) 100 MG capsule Take 1 capsule by mouth if needed at bedtime. Eliquis 5 MG tablet Take 1 tablet by mouth 2 times daily. ferrous sulfate 325 (65 Fe) MG EC [...] ONCE A DAY magnesium oxide (Mag-Ox) 400 MG tablet Take 1 tablet by mouth 2 times daily. methadone (Dolophine) 10 MG tablet Take 90 mg by mouth Once per day. Take 95 mg by mouth every morning midodrine (Proamatine) 2.5 MG tablet Take 1 tablet (2.5 mg) by mouth 3 times daily. 90 tablet 0 naloxone (Narcan) 4 mg/0.1 mL nasal spray PLEASE SEE ATTACHED FOR DETAILED DIRECTIONS spironolactone (Aldactone) 25 MG tablet TAKE 2 TABLETS BY MOUTH EVERY DAY DIRECTED 30 tablet 0 thiamine (Vitamin B-1) 100 MG tablet Take 1 tablet by mouth Once per day. No current facility-administered medications on file prior to visit. documented in this encounter Miscellaneous Notes * Assessment & Plan Note - Daniela Vaughn MD - 07/15/2025 12:15 PM EDT Associated Problem(s): Venous stasis dermatitis of both lower extremities Patient will use betamethasone ointment twice daily for 2 weeks then once daily. Advised to apply compression and come to the walk-in center or ED if he has variceal bleeding. Will refer to vascular surgeon for varicectomy, given recurrent bleeding, dermatitis and other complications he may need surgical intervention documented in this encounter Plan of Treatment Upcoming Encounters Date Type Department Care Team (Late st Contact Info) Description 09/25/2025 2:00 PM EST Office Visit [facility] [address] [place] [phone] Alba So NP [address] [place] [address] Scheduled Referrals Name Type Priority Associated Diagnoses Orde r Schedule Referral to Vascular Surgery Outpatient Referral Routine Venous stasis dermatitis of both lower extremities Bleeding from varicose veins of left lower extremity Expected: 07/15/2025 (Approximate), Expires: 07/15/2026 documented as of this encounter Visit Diagnoses Diagnosis Venous stasis dermatitis of both lower extremities- Primary Bleeding from varicose veins of left lower extremity documented in this encounter Additional Health Concerns Assessment Noted Time PHQ-9 Depression Total Score: 18 024 11:56 AM EST documented as of this encounter Care Teams Associate Dentist Relationship Specialty Start Date End Date Alba So NP [address] [place] [address] PCP - General Family Medicine 04/14/24 documented as of this encounter
--- OUTSIDE RECORDS SUMMARY | 2025-07-18 09:20 | XMS_ITS | Encounter Summary ---
Author Organization [employer] Address [address] [place] [address] Care Team Providers Care Director Reactor Projects Name Role Phone Alba So GENEVA Primary Care Provider [phone] Encounter Details Date Type Department Care Team (Late st Contact Info) Description 07/18/2025 9:20 AM EDT Office Visit [facility] [address] [place] [address] Nighat Galloway MD [address] [place], [place] [phone] Hx pulmonary embolism (Primary Dx); Shortness of breath; Hx of heart failure Social History Tobacco Use Types Packs/Day Years Used Date Smoking Tobacco: Every Day Cigarettes Passive Smoke Exposure: Current Smokeless Tobacco: Never Alcohol Use Standard Drinks/Week [...] Sign Reading Time Taken Comments Blood Pressure 100/84 07/18/2025 9:19 AM EDT Pulse 94 07/18/2025 9:19 AM EDT Temperature 36.9 C (98.4 F) 07/18/2025 9:19 AM EDT Respiratory Rate 22 07/18/2025 9:19 AM EDT Oxygen Saturation 97% 07/18/2025 9:21 AM EDT 2 L Inhaled Oxygen Concentration - - Weight - - Height - - Body Mass Index - - documented in this encounter Progress Notes * Nighat Galloway MD - 07/18/2025 9:20 AM EDT Subjective Patient ID: Norberto Marquez is a 34 y.o. male with a complicated past medical history of bioprosthetictricuspid valve replacement, mitral valve vegetation, bacteremia endocarditis 02/2023, pulmonary emboli and DVT, non-adherent to Eliquis, polysubstance use disorder, cirrhosis, history heart failure,recent hospitalization for possible drug induced pneumonits who presents to walk in clinic for shortness of breat. Reports he is living in a drug treatment program and has had shortness of breath with associated chest discomfort for several days. Denies fever, sough, URI symptoms. O2 on RA was 92%. He was startedon 2L O2., Sa come up to 98% and I was asked to come evaluate him emergently. He reports last use of illicit substances was 2 months ago. When O2 removed and SaO2 dropped back down to 95% on RA at res t. Recent hospitalizations: [facility] (06/06/25 - 06/13/25) [facility] (06/06/25 - 06/13/25) Presented to ED after they contacted the patient's mother due to elevated D- dimer at previous ED visit (06/04/25). Upon admission, patient was coughing up blood due to drug induced pneumonitis and had possible cellulitis in left lower extremity. CT scan ruled out PE and TB. Hemoglobin and Hematocrit (HH) were 7.8 g/dl and 27.2% on arrival, repeated 8 hours later and was 7.7g/dl and 26.8% respectively. D dimer was repeated, reduced from 1323 to 1296 ng/ml. Patient was treated with Keflex and doxycycline. Settlement Technician was consulted, recommended oral doxycycline and prednisone. No evidence of DVT, Eliquis was resumed. EKG was repeated, showed severe tricuspid valve stenosis and elevated rightcardiac pressures, no acute cardiac issue. Patient had hepatic encephalopathy, recommended continuation of lactulose and rifaximin. Also, patient had a positive tox screen for heroin, fentanyl, and cocaine. Patient had admitted into [facility] 4 days ago but signed out. Patient had planned to go [facility] for detox before this admission. Discharged home to complete doxycycline and prednisone and follow up with PCP in one week. Medication changes that occurred during hospitalization include: ?? Added ?? Doxycycline monohydrate 100mg: Take 1 capsule by mouth every 12 hours ?? Rifaximin 550mg: Take 1 tablet by mouth twice daily ?? Prednisone: taper as directed ?? 40 mg daily for 3 Days ?? 30 mg daily for 3 Days ?? 20 mg daily for 3 Days ?? 10 mg daily for 3 Days Review of Systems Constitutional: Positive for fatigue. Negative for chills and fever. Respiratory: Positive for shortness of breath. Negative for cough, choking, chest tightness and wheezing. Cardiovascular: Negative for leg swelling. Objective Visit Vitals BP 100/84 (BP Location: Left arm, Patient Position: Sitting, BP Cuff Size: Adult) Pulse 94 Temp 98.4 ??F (36.9 ??C) (Oral) Resp 22 There is no height or weight on file to calculate BMI. Physical Exam Constitutional: Appearance: Normal appearance. HENT: Mouth/Throat: Mouth: Mucous membranes are dry. Pharynx: Oropharynx is clear. Cardiovascular: Rate and Rhythm: Normal rate and regular rhythm. Heart sounds: Murmur heard. Pulmonary: Effort: No respiratory distress. Breath sounds: No stridor. No wheezing, rhonchi or rales. Chest: Chest wall: No tenderness. Musculoskeletal: Cervical back: Normal range of motion and neck supple. Neurological: Comments: Some slight psychomotor retardation and body twitching Assessment & Plan Shortness of breath Shortness of breath and hypoxia (92%) on RA in pt with complicated medical history of PE, IVDA withhistory endocarditis, cirrhosis and recent hospitalization for possible drug induced pneumonits. Normal pulmonary exam. I advised he go to the ER now via ambulance for work up for PE, endocarditis, he art failure vs other. He refuses to go to ER. States he understands that he could suffer serious consequences including if he does not go to the ER for further work up. We offered multiple options of transportation and comfort including food and contacting his treatment center. Pt refused andleft AMA. He requested multiple medications after leaving AMA. I confirmed with pharmacy. I have written for his Elquis and Lasix but told him he needed to come to his hospital follow up apt tomorrowto get his other medications in hopes it will encourage him to follow up as scheduled tomorrow. He is aware of the appointment. Orders: Influenza A (ID NOW Rapid Molecular) Influenza B (ID NOW Rapid Molecular) POCT Rapid COVID Ag POCT rapid strep A manually resulted Hx pulmonary embolism Orders: Eliquis 5 MG tablet; Take 1 tablet (5 mg) by mouth 2 times daily. Hx of heart failure Orders: furosemide (Lasix) 20 MG tablet; Take 1 tablet (20 mg) by mouth Once per day. Future Appointments Date Time Provider Department Center 07/19/2025 10:00 AM SCOTTIE Frazier MEDICINE [facility] documented in this encounter Miscellaneous Notes * Assessment & Plan Note - Nighat Galloway MD - 07/18/2025 9:20 AM EDT Associated Problem(s): Shortness of breath Shortness of breath and hypoxia (92%) on RA in pt with complicated medical history of PE, IVDA withhistory endocarditis, cirrhosis and recent hospitalization for possible drug induced pneumonits. Normal pulmonary exam. I advised he go to the ER now via ambulance for work up for PE, endocarditis, he art failure vs other. He refuses to go to ER. States he understands that he could suffer serious consequences including if he does not go to the ER for further work up. We offered multiple options of transportation and comfort including food and contacting his treatment center. Pt refused andleft AMA. He requested multiple medications after leaving AMA. I confirmed with pharmacy. I have written for his Elquis and Lasix but told him he needed to come to his hospital follow up apt tomorrowto get his other medications in hopes it will encourage him to follow up as scheduled tomorrow. He is aware of the appointment. Orders: Influenza A (ID NOW Rapid Molecular) Influenza B (ID NOW Rapid Molecular) POCT Rapid COVID Ag POCT rapid strep A manually resulted documented in this encounter Plan of Treatment Upcoming Encounters Date Type Department Care Team (Late st Contact Info) Description 09/25/2025 2:00 PM EST Office Visit [facility] [address] [place] [address] Alba So NP [address] [place] [phone] documented as of this encounter Procedures Procedure Name Priority Date/Time Associated Diagnosis Comments POCT INFLUENZA B (ID NOW RAPID MOLECULAR) Routine 07/18/2025 12:57 PM EDT Shortness of breath POCT INFLUENZA A (ID NOW RAPID MOLECULAR) Routine 07/18/2025 12:57 PM EDT Shortness of breath POCT RAPID COVID ANTIGEN Routine 07/18/2025 9:33 AM EDT Shortness of breath POCT RAPID STREP A Routine 07/18/2025 9: 33 AM EDT Shortness of breath documented in this encounter Results * Influenza B (ID NOW Rapid Molecular) (07/18/2025 12:57 PM EDT) [facility] Influenza B Negative Negative, Indeterminate [facility] Swab 07/18/2025 12:5 7 PM EDT Nighat Galloway MD POINT OF CARE TEST ENTER/E DIT ORDERABLES Final Result [facility] [address] [place] [phone] * Influenza A (ID NOW Rapid Molecular) (07/18/2025 12:57 PM EDT) [facility] Influenza A Negative Negative, Indeterminate [facility] Swab 07/18/2025 12:5 7 PM EDT Nighat Galloway MD POINT OF CARE TEST ENTER/E DIT ORDERABLES Final Result Performing Organization Address City/[facility]/ZIP Co de Phone Number [facility] [address] [place] [phone] * POCT rapid strep A manually resulted (07/18/2025 9:33 AM EDT) [facility] Rapid Strep A Screen Negative Negative, None Detected Swab 07/18/2025 9:33 AM EDT us Nighat Galloway MD POINT OF CARE TEST ENTER/E DIT ORDERABLES Final Result * POCT Rapid COVID Ag (07/18/2025 9:33 AM EDT) [facility] Rapid COVID Ag Negative Swab 07/18/2025 9:33 AM EDT Nighat Galloway MD POINT OF CARE TEST ENTER/E DIT ORDERABLES Final Result documented in this encounter Visit Diagnoses Diagnosis Hx pulmonary embolism- Primary Shortness of breath Hx of heart failure documented in this encounter Additional Health Concerns Assessment Noted Time PHQ-9 Depression Total Score: 18 024 11:56 AM EST documented as of this encounter Care Teams Director Reactor Projects Relationship Specialty Start Date End Date Alba So NP [address] [place] [phone] PCP - General Family Medicine 04/14/24 documented as of this encounter
--- NOTE | 2025-07-19 | ECG_ITS ---
Test Reason : CP/SOB Blood Pressure : */* mmHG Vent. Rate : 84 BPM Atrial Rate : 84 BPM P-R Int : 144 ms QRS Dur : 88 ms QT Int : 406 ms P-R-T Axes : 28 71 -26 degrees QTcB Int : 479 ms Normal sinus rhythm T wave abnormality, consider anterolateral ischemia Prolonged QT Abnormal ECG When compared with ECG of 11-Jun-2025 20:19, Nonspecific T wave abnormality, worse in Inferior leads T wave inversion more evident in Anterolateral leads Referred By: Generic ED Physician Electronically Signed By: VIOLET SULLIVAN
--- NOTE | ~2025-07-19 | XR_ITS ---
CLINICAL HISTORY: SOB 2 view chest x-ray Comparison: 01/24/2025 Findings: The lungs are clear. Heart size is normal. No acute fracture. IMPRESSION: 1. No acute findings. This document has been electronically signed by: Colin Reyes MD on 07/19/2025 18:24:34
--- OUTSIDE RECORDS SUMMARY | 2025-07-19 10:00 | XMS_ITS | Encounter Summary ---
Author Organization [employer] Address [address] 7t [place] [address] Care Team Providers Care Programmer Analyst Consultant Name Role Phone Alba So GENEVA Primary Care Provider [phone] Reason for Visit * Reason Comments Hospital Follow-up Encounter Details Date Type Department Care Team ([facility] Contact Info) Description 07/19/2025 10:00 AM EDT Office Visit [facility] [address] [place] [address] Viviana Cruz FNP [address] [place] [address] Social History Tobacco Use Types Packs/Day Years [...] Sign Reading Time Taken Comments Blood Pressure 110/70 07/19/2025 10:21 AM EDT Pulse 82 07/19/2025 10:21 AM EDT Temperature 37 C (98.6 F) 07/19/2025 10:21 AM EDT Respiratory Rate 16 07/19/2025 10:2 1 AM EDT Oxygen Saturation 96% 07/19/2025 10: 21 AM EDT Inhaled Oxygen Concentration - - Weight 78.4 kg (172 lb 12.8 oz) 025 10:21 AM EDT Height 167.6 cm (5' 6 ) 07/19/2025 10:2 1 AM EDT Body Mass Index 27.89 07/19/2025 10:21 AM EDT documented in this encounter Plan of Treatment Upcoming Encounters Date Type Department Care Team (Late st Contact Info) Description 09/25/2025 2:00 PM EST Office Visit [facility] [address] [place] [address] Alba So NP [address] [place], [place] [phone] documented as of this encounter Visit Diagnoses Not on filedocumented in this encounter Additional Health Concerns Assessment Noted Time PHQ-9 Depression Total Score: 18 024 11:56 AM EST documented as of this encounter Care Teams Programmer Analyst Consultant Relationship Specialty Start Date End Date Alba So NP [address] [place] [address] PCP - General Family Medicine 04/14/24 documented as of this encounter
--- NOTE | 2025-07-19 17:17 | MHC.EDTECH ---
This pct obtained an EKG on this patient but there was no worklist section to comment this EKG although the physician did order this.
[2025-07-19 17:31] VITALS: BP 109/72; PULSE 86; RESP 18; TEMP 36.6; O2SAT 93; BMI 27.4
--- NOTE | 2025-07-19 17:32 | ED.CHESTPAIN ---
HPI - Chest Pain General Chief Complaint: Dyspnea Stated Complaint: chest pain, SOB Time Seen by Provider: 07/19/25 21:15 Source: patient Mode of arrival: ambulatory Limitations: no limitations History of Present Illness ED Provider: DR. Araiza HPI narrative: 34-year-old male with PMHx significant for polysubstance abuse patient has been sober of using drugs for 2 months now and compliant with his methadone, endocarditis s/p bioprosthetic tricuspid valve replacement 2019 complicated by valve stenosis, septic pulmonary emboli and empyema, right-sided heart failure, rhabdomyolysis, liver cirrhosis, history of DVT and pulmonary embolism noncompliant with apixaban, cardiomyopathy, recurrent MSSA bacteremia and endocarditis patient came to the emergency department for complaints of feeling tired and fall asleep very quick while doing things for the past month and has been worsening for the past week and a half, patient also is complaining of easily fatigued and shortness of breath with exertion. No fever, no chills, confirmed not using recreational drugs lately, no CP, no abdominal pain. Patient also is taking medication for anxiety, depression. Related Data Home Medications ?Medication ?Instructions ?Recorded ?Confirmed methadone 10 mg/mL oral 120 mg PO DAILY 09/13/24 06/07/25 concentrate (Methadone Intensol) albuterol sulfate 90 mcg/actuation 1 - 2 puff inhalation Q4-6H PRN 06/07/25 06/07/25 aerosol inhaler (Ventolin HFA) wheezing ferrous sulfate 325 mg (65 mg 325 mg PO Q OTHER DAY 06/07/25 06/07/25 iron) tablet furosemide 20 mg tablet 20 mg PO DAILY 06/07/25 06/07/25 gabapentin 100 mg capsule 200 mg PO TID 06/07/25 06/07/25 hydroxyzine pamoate 50 mg capsule 50 mg PO TID PRN Anxiety 06/07/25 06/07/25 sertraline 50 mg tablet 50 mg PO DAILY 06/07/25 06/07/25 trazodone 50 mg tablet 50 mg PO BEDTIME 06/07/25 06/07/25 Previous Rx's ?Medication ?Instructions ?Recorded apixaban 5 mg tablet (Eliquis) 5 mg PO BID 30 days #60 tabs 02/09/25 doxycycline monohydrate 100 mg 100 mg PO Q12H #8 caps 06/13/25 capsule prednisone 10 mg tablet See Taper PO DIRECTED #20 tabs 06/13/25 rifaximin 550 mg tablet (Xifaxan) 550 mg PO BID #180 tabs 06/13/25 albuterol sulfate 90 mcg/actuation 2 inh inhalation Q4-6H PRN 07/19/25 breath activated powder inhaler shortness of breath or wheezing #1 ea prednisone 10 mg tablet 10 mg PO BID #10 tabs 07/19/25 Allergies Allergy/AdvReac Type Severity Reaction Status Date / Time No Known Allergies (No Known Allergy Verified 07/19/25 17:33 Allergies*) [facility] Past Medical History Medical History (Updated 07/19/25 @ 21:37 by Neva Araiza MD) Hepatic cirrhosis Mitral valve vegetation Heart failure with mildly reduced ejection fraction Prosthetic valve malfunction Active intravenous drug use Pulmonary embolism without acute cor pulmonale Tricuspid valve vegetation Endocarditis Hypersensitivity pneumonitis Hemoptysis Rhabdomyolysis Anemia LUCERO (acute kidney injury) Polysubstance abuse Opioid use disorder Opioid use disorder, severe, dependence Substance abuse MSSA bacteremia Bacteremia Bacteremia Right heart failure Steatosis, liver Tricuspid valve stenosis Anasarca HCV (hepatitis C virus) Endocarditis Pulmonary embolism Surgical History S/P tricuspid valve replacement History of tricuspid valve replacement with bioprosthetic valve Social History Social History Household Members: Other Household Members Other:: jail Housing: Homeless Do you presently have visiting nurse or other home services: No Alcohol intake: never Patient Tobacco Use Status: Current everyday Tobacco user Tobacco use type: Cigarette Cigarette Packs Per Day: 0.5 Cigarettes Per Day: 10.0 Years Smoked: 10 Second Hand Smoke Exposure: No Substance Use Type: Heroin Advance Directives: Yes Advance Directives on File: Yes Advance Directives Date on File: 04/16/21 Do you have a plan to hurt others: No Plan service: No Current occupational status: unemployed Physical Exam Vital Signs: Vital Signs: Last Vital Signs Temp 98.6 F 07/19/25 19:31 Pulse 82 07/19/25 19:31 Resp 12 07/19/25 19:31 BP 94/62 07/19/25 19:31 Pulse Ox 93 07/19/25 19:31 O2 Del Method Room Air 07/19/25 19:31 BMI result Body Mass Index 27.4 Course Course Course Narrative: This is an RME: Additional HPI, ROS, PE not included below will be deferred to primary provider. 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 Also endorsing increased lethargy. He states that he has not used any drugs and has been compliant on all of his medications. Plan: Labs, EKG, XR chest, further ER eval needed Reevaluation(s) Reevaluation #1: Shortness of breath with cough, no fever, no chills, VSS no tachycardia, no tachypnea, O2 sat is 93%, afebrile, patient with history of pulmonary embolism claimed that he is compliant with his anticoagulation medication, since VSS is stable work of for worsening pulmonary embolism is not indicated at this point. Cough and and acute bronchitis is the likely diagnosis. Ammonia is at 59 which is the normal level for the patient. SBP absence of fever, abdominal pain and leukocytosis. H&H with slight improvement from baseline. U tox is only positive for methadone. Patient is not in acute CHF. Start the patient on short course of prednisone/bronchodilator and follow-up with PCP. Time: 21:33 Medical Decision Making Differential Diagnosis Differential Diagnoses: The differential diagnosis associated with the presentation includes (Substance use, SBP, hepatic encephalopathy, electrolyte derangement, severe anemia, pneumonia, pneumothorax, CHF.) Admission/Observation Consideration of admission/observation: Escalation of care including admission/observation considered Lab Data MDM Lab Attestation statement: I reviewed the patient's lab results. 07/19/25 18:22 07/19/25 18:22 Labs: Lab Results 07/19/25 07/19/25 Range/Units 18:22 20:51 WBC 5.8 (4.8-10.8) X10*3/uL RBC 4.71 (4.60-5.80) X10*6/uL Hgb 10.8 L D (14.0-18.0) g/dl Hct 36.1 L (42.0-52.0) % MCV 76.6 L (80.0-98.0) fL MCH 22.9 L (27.0-33.0) pg MCHC 29.9 L (31.0-36.0) g/dl RDW 28.6 H (11.0-16.0) % Plt Count 176 D (160-400) X10*3/uL MPV 10.2 (9.4-12.4) fL Immature Gran % (Auto) 1.2 H (0.0-0.4) % Neut % (Auto) 50.0 (45-73) % Lymph % (Auto) 26.6 (20-40) % Amite % (Auto) 17.4 H (2-11) % Eos % (Auto) 4.1 H (0-4) % Baso % (Auto) 0.7 (0-2) % Lymph # (Auto) 1.5 (1.2-4.9) X10*3/uL Amite # (Auto) 1.0 (0.1-1.2) X10*3/uL Eos # (Auto) 0.2 (0.0-0.4) X10*3/uL Baso # (Auto) 0.0 (0.0-0.2) X10*3/uL Abs Immat Gran (auto) 0.07 H (0.00-0.03) X10*3/uL Absolute Neuts (auto) 2.9 (2.0-8.3) x10*3/uL Absolute Nucleated RBC 0.000 (0.0-0.012) X10*3/uL Nucleated RBC % (auto) 0.0 (0.0-0.2) /100WBC Smear Tech's Comments VERIFIED Sodium 138 (135-145) mmol/L Potassium 4.5 (3.3-5.1) mmol/L Chloride 109 H (96-108) mmol/L Carbon Dioxide 21 L (22-29) mmol/L Anion Gap 13 (12-20) BUN 21 H (9-16) mg/dL Creatinine 0.79 (0.5-1.4) mg/dL Estim Creat Clear Calc 126.2 Estimated GFR > 60 Random Glucose 98 (60-115) mg/dL Calcium 9.6 (8.4-10.2) mg/dL Magnesium 1.6 (1.6-2.6) mg/dL Total Bilirubin 0.9 (0.0-1.0) mg/dL Direct Bilirubin 0.5 (0.0-0.5) mg/dL AST 94 H (5-37) U/L ALT 81 H (0-40) U/L Alkaline Phosphatase 273 H (39-117) U/L Ammonia 59 H (13-55) umol/L Troponin I High Sens 3.3 (<3.5-35.0) ng/L NT-Pro-B Natriuret Pep 251.0 (<300) pg/mL Total Protein 7.1 (6.5-8.0) g/dL Albumin 4.0 (3.5-5.0) g/dL Urine Opiates Screen Not Detected (Not Detect) Ur Buprenorphine Scrn Not Detected (Not Detect) ng/mL Ur Oxycodone Screen Not Detected (Not Detect) ng/mL Urine Methadone Screen Positive H (Not Detect) ng/mL Urine Fentanyl Screen Not Detected (Not Detect) Ur Barbiturates Screen Not Detected (Not Detect) Ur Phencyclidine Scrn Not Detected (Not Detect) Ur Amphetamines Screen Not Detected (Not Detect) U Benzodiazepines Scrn Not Detected (Not Detect) Urine Cocaine Screen Not Detected (Not Detect) U Marijuana (THC) Screen Not Detected (Not Detect) Ethyl Alcohol < 10 mg/dL COVID-19 ([facility]) Negative (Negative) COVID-19 Clin Com See Note Influenza Type A (BR[facility]TA) Negative (Negative) Influenza Type B ([facility]TA) Negative (Negative) Influenza A & B Note See Note Independent Interpretation I performed an independent interpretation of an: Plain X-Ray (Chest: No acute findings.) Radiology Impression Discussion of test interpretation with radiology: I have reviewed the radiologist's reading. Discharge Plan Discharge Clinical Impression: Acute bronchitis Patient Disposition: Home, Self-Care Instructions: Acute Bronchitis (ED) Prescriptions: New prednisone 10 mg tablet 10 mg PO BID Qty: 10 0RF albuterol sulfate 90 mcg/actuation aerosol powdr breath activated 2 inh inhalation Q4-6H PRN (Reason: shortness of breath or wheezing) Qty: 1 0RF No Action methadone [Methadone Intensol] 10 mg/mL Concentrate 120 mg PO DAILY Eliquis 5 mg tablet 5 mg PO BID 30 Days Qty: 60 0RF trazodone 50 mg tablet 50 mg PO BEDTIME hydroxyzine pamoate 50 mg capsule 50 mg PO TID PRN (Reason: Anxiety) ferrous sulfate 325 mg (65 mg iron) tablet 325 mg PO Q OTHER DAY furosemide 20 mg tablet 20 mg PO DAILY gabapentin 100 mg capsule 200 mg PO TID albuterol sulfate [Ventolin HFA] 90 mcg/actuation HFA aerosol inhaler 1 - 2 puff inhalation Q4-6H PRN (Reason: wheezing) sertraline 50 mg tablet 50 mg PO DAILY doxycycline monohydrate 100 mg Capsule 100 mg PO Q12H Qty: 8 0RF Xifaxan 550 mg Tablet 550 mg PO BID Qty: 180 0RF prednisone 10 mg tablet See Taper PO DIRECTED Qty: 20 0RF Taper: Prednisone 40 mg daily for 3 Days and 0 Hour 30 mg daily for 3 Days and 0 Hour 20 mg daily for 3 Days and 0 Hour 10 mg daily for 3 Days and 0 Hour Rx Instructions: see taper instructions Referrals: [facility] [Primary Care Provider, Medical] Print Language: Senegalese
[2025-07-19 18:33] LABS: NRBC Abs Auto 0.000 X10*3/uL (0.0-0.012); NRBC Pct Auto 0.0 /100WBC (0.0-0.2); SCAN SMEAR FLAG 1
[2025-07-19 18:35] LABS: Hematocrit 36.1 % (42.0-52.0); Hemoglobin 10.8 g/dl (14.0-18.0); Imm Gran Abs Auto 0.07 X10*3/uL (0.00-0.03); Imm Gran Pct Auto 1.2 % (0.0-0.4); Lymphocytes Absolute Auto 1.5 X10*3/uL (1.2-4.9); MANUAL DIFF FLAG SCAN; Mean Corpuscular HGB Conc 29.9 g/dl (31.0-36.0); Mean Corpuscular Hemoglobin 22.9 pg (27.0-33.0); Mean Corpuscular Volume 76.6 fL (80.0-98.0); Platelet Count 176 X10*3/uL (160-400); Red Blood Count 4.71 X10*6/uL (4.60-5.80); White Blood Count 5.8 X10*3/uL (4.8-10.8)
[2025-07-19 18:39] LABS: Ammonia 59 umol/L (13-55)
[2025-07-19 18:52] LABS: NT Pro B Type Natriuretic Pept 251.0 pg/mL (<300); Troponin-I High Sensitivity 3.3 ng/L (<3.5-35.0)
[2025-07-19 18:53] LABS: COVID-19 Test Negative (Negative); IDNOW Serial# 55D5AD1C; IDNOW Serial# 58CA691E; Influenza B2 Negative (Negative)
[2025-07-19 19:02] LABS: Alanine Aminotransferase 81 U/L (0-40); Albumin Level 4.0 g/dL (3.5-5.0); Alkaline Phosphatase 273 U/L (39-117); Anion Gap 13 (12-20); Aspartate Amino Transferase 94 U/L (5-37); Blood Urea Nitrogen 21 mg/dL (9-16); Calcium 9.6 mg/dL (8.4-10.2); Carbon Dioxide 21 mmol/L (22-29); Chloride 109 mmol/L (96-108); Creatinine Clr Calc Pharmacy 126.2; Estimated Glomerular Filt Rate > 60; Magnesium 1.6 mg/dL (1.6-2.6); Potassium 4.5 mmol/L (3.3-5.1); Sodium 138 mmol/L (135-145); Total Protein 7.1 g/dL (6.5-8.0)
[2025-07-19 19:12] LABS: PLT ABN DIST 1
--- OUTSIDE RECORDS SUMMARY | 2025-07-19 19:25 | XMS_ITS | Encounter Summary ---
Author Organization [facility] Address [address] [place] [address] Phone Care Team Providers Care Cement Loader Name Role Phone Pcp, Unknown Primary Care Provider Unavailabl e Encounter Details Date Type Department Care Team (Late st Contact Info) Description 02/14/2020 Transcribe Orders [facility] Specimen Processing [address] [place] [address] Donell Villalobos, DO [address] [address] [place] [address] [email or web address] Encounter for health examination of prisoner (Primary [...] ALKALINE PHOSPHATASE 138(H) 39 - 117 U/L [facility] TOTAL BILIRUBIN 0.5 0.0 - 1.2 mg/dL [facility] DIRECT BILIRUBIN 0.2 0 - 0.3 mg/dL [facility] Bilirubin (Indirect) 0.3 0 - 1.5 mg/dL [facility] AST 114(H) 0 - 37 U/L [facility] ALT 235(H) 0 - 40 U/L [facility] TOTAL PROTEIN 6.8 6.5 - 8.0 g/dL [facility] ALBUMIN 4.1 3.9 - 4.8 g/dL [facility] GLOBULIN 2.7 1 - 4.8 g/dL [facility] A/G Ratio 1.52 1.00 - 4.80 RATIO [facility] Blood 02/15/2020 10:0 4 AM EDT 02/15/2020 11:32 AM EDT us Donell A Bigda DO LAB BLOOD ORDERABLES Final Resul t Performing Organization Address City/State/[facility] Co de Phone Number [facility] [address] [place] [address] documented in this encounter Visit Diagnoses Diagnosis Encounter for health examination of prisoner- Primary documented in this encounter Additional Health Concerns Infection Onset Date Last Indicated Resolved Time CoV-Risk 03/27/2023 03/27/2023 04/07/2023 1:22 AM EDT documented as of this encounter Care Teams Cement Loader Relationship Specialty Start Date End Date Pcp, Unknown PCP - General 12/06/19 documented as of this encounter Additional Source Comments The information contained in this document represents components of the legal health record. It is not the complete legal health record.[facility]
--- OUTSIDE RECORDS SUMMARY | 2025-07-19 19:25 | XMS_ITS | Encounter Summary ---
Author Organization [facility] Address [address] [place] [phone] Phone Care Team Providers Care Process Technician Name Role Phone Pcp, Unknown Primary Care Provider Unavailabl e Encounter Details Date Type Department Care Team (Late st Contact Info) Description 10/28/2023 Procedure Pass [facility] Endoscopy Admitting Dept Virtual Department [address] [place] [address] Social History Tobacco Use Types Packs/Day Years Used Date Smoking Tobacco: Every Day Cigarettes Alcohol Use Standard Drinks/Week Comments Not Currently 0 (1 standard drink = 0.6 oz pur e alcohol) Education Answer Date Recorded Are you interested in more education? Not on angela e 02/13/2023 Are you concerned about learning? Not on file 02/13/2023 No 02/13/2023 No 02/13/2023 Digital Access Answer Date Recorded No 03/17/2023 No 03/17/2023 Reliable internet access at home? Not on file 03/17/2023 Device with a working camera? Not on file Intimate Partner Violence Answer Date R ecorded Denied Basic Needs Not on file 09/15/2023 In the past 12 months have y ou been in a relationship with a person who hurts, threatens, or tries to control you? No 09/15/2023 Worried food would run out Not on file 09/15 In the past 12 months have y ou been in a relationship with a person who hurts, threatens, or tries to control you? No 09/15/2023 Sex and Gender Information Value Date Recorded Sex Assigned at Not on file Legal Sex Male 11:51 AM EST Gender Identity Not on file Sexual Orientation Not on file documented as of this encounter Plan of Treatment Not on file documented as of this encounter Visit Diagnoses Not on filedocumented in this encounter Care Teams Process Technician Relationship Specialty Start Date End Date Pcp, Unknown PCP - General 12/06/19 documented as of this encounter Additional Source Comments The information contained in this document represents components of the legal health record. It is not the complete legal health record.[facility]
--- OUTSIDE RECORDS SUMMARY | 2025-07-19 19:25 | XMS_ITS | Encounter Summary ---
Author Organization [facility] Address [address] [place] [phone] Phone Care Team Providers Care Software Development Leader Name Role Phone Pcp, Unknown Primary Care Provider Unavailabl e Encounter Details Date Type Department Care Team (Late st Contact Info) Description 09/16/2023 Procedure Pass [facility] Endoscopy Admitting Dept Virtual Department [address] [place] [address] Social History Tobacco Use Types Packs/Day Years [...] on filedocumented in this encounter Care Teams Software Development Leader Relationship Specialty Start Date End Date Pcp, Unknown PCP - General 12/06/19 documented as of this encounter Additional Source Comments The information contained in this document represents components of the legal health record. It is not the complete legal health record.[facility]
--- OUTSIDE RECORDS SUMMARY | 2025-07-19 19:25 | XMS_ITS | Encounter Summary ---
Author Organization [employer] Address [address] [place] [address] Care Team Providers Care Telephone Solicitor Supervisor Name Role Phone Alba So GENEVA Primary Care Provider [phone] Encounter Details Date Type Department Care Team (Latest Contact Info) Description 07/19/2025 Travel Social History Tobacco Use Types Packs/Day Years [...] 2:00 PM EST Office Visit [facility] [address] [place] [address] Alba So NP [address] [place] [address] documented as of this encounter Visit Diagnoses Not on filedocumented in this encounter Additional Health Concerns Assessment Noted Time PHQ-9 Depression Total Score: 18 024 11:56 AM EST documented as of this encounter Care Teams Telephone Solicitor Supervisor Relationship Specialty Start Date End Date Alba So NP [address] [place] [address] PCP - General Family Medicine 04/14/24 documented as of this encounter
--- OUTSIDE RECORDS SUMMARY | 2025-07-19 19:25 | XMS_ITS | Encounter Summary ---
Author Organization [employer] Address [address] [place] [address] Care Team Providers Care Chute Worker Name Role Phone Alba So GENEVA Primary Care Provider [phone] Encounter Details Date Type Department Care Team (Late st Contact Info) Description 07/17/2025 Telephone [facility] MEDICINE [address] [place] [address] Malika Garnett PharmD [address] [place] [address] Social History Tobacco Use Types Packs/Day Years [...] with others, in a hotel, in a intermediate, living outside on the street, on a [...] encounter Miscellaneous Notes * Telephone Encounter - Malika Garnett PharmD - 07/17/2025 11:39 AM EDT Please assist in obtaining discharge paperwork from [facility] Patient was discharged on 07/12/25. Thank you documented in this encounter Plan of Treatment Upcoming Encounters Date Type Department Care Team (Late st Contact Info) Description 09/25/2025 2:00 PM EST Office Visit [facility] MEDICINE [address] [place] [address] Alba So NP [address] [place] [address] documented as of this encounter Visit Diagnoses Not on filedocumented in this encounter Additional Health Concerns Assessment Noted Time PHQ-9 Depression Total Score: 18 024 11:56 AM EST documented as of this encounter Care Teams Chute Worker Relationship Specialty Start Date End Date Alba So NP [address] [place] [phone] PCP - General Family Medicine 04/14/24 documented as of this encounter
--- OUTSIDE RECORDS SUMMARY | 2025-07-19 19:25 | XMS_ITS | Encounter Summary ---
Author Organization [employer] Address [address] [place] [address] Care Team Providers Care Transistor Tester Name Role Phone Nirali LottP Primary Care Provider [phone] Alba So NP Primary Care Provider [phone] Reason for Visit * Reason Onset Date Comments Hospital Follow-up 04/05/2024 Encounter Details Date Type Department Care Team ([facility] st Contact Info) Description 04/05/2024 Telephone [facility] MEDICINE [address] [place] [address] Nirali Lott FNP [address] [place] [address] Hospital Follow-up Social History Tobacco Use Types [...] from pt requesting a HDF appt. Hospital: [facility] Date of admission: 03/30 Discharge date: 04/01 Diagnosed: Chest Pain documented in this encounter Plan of Treatment Upcoming Encounters Date Type Department Care Team (Late st Contact Info) Description 09/25/2025 2:00 PM EST Office Visit [facility] MED[facility]INE [address] [place] [address] Alba So NP [address] [place] [address] documented as of this encounter Visit Diagnoses Not on filedocumented in this encounter Additional Health Concerns Assessment Noted Time PHQ-9 Depression Total Score: 0 06/03/20 10:05 AM EDT documented as of this encounter Care Teams Transistor Tester Relationship Specialty Start Date End Date Nirali Lott FNP [address] [place] [phone] PCP - General Family Medicine 07/09/23 04/13/24 Alba So NP [address] [place] [phone] PCP - General Family Medicine 04/14/24 documented as of this encounter
--- OUTSIDE RECORDS SUMMARY | 2025-07-19 19:25 | XMS_ITS | Clinical Summary ---
Author Organization [facility] Address [address] [place] [phone] Phone Care Team Providers Care Dev Ops Engineer Name Role Phone Pcp, Unknown Primary Care Provider Unavailabl e Allergies No known active allergies Medications furosemide (LASIX) 20 MG tablet Take 1 tablet by mouth every morning. 3 Active XARELTO 20 mg Tab Take 1 tablet by mouth every morning. 3 Active VENTOLIN HFA 90 mcg/actuation inhaler INHALE 2 PUFFS USING INHALER EVERY FOUR TO SIX HOURS WHILE AWAKE NEEDED 3 Active acetaminophen (TYLENOL) 325 mg tablet PLEASE SEE ATTACHED FOR DETAILED DIRECTIONS 3 Active Social History Tobacco Use Types Packs/Day Years Used Date Smoking Tobacco: Every Day Cigarettes Tobacco Cessation:Ready to Q uit: Not Asked; Counseling Given: Not Answered Alcohol Use Standard Drinks/Week Comments Not Currently [...] on file Sexual Orientation Not on file Last Filed Vital Signs Vital Sign Reading Time Taken Comments Blood Pressure 144/98 04/12/2023 1:29 AM EDT Pulse 86 04/12/2023 1:29 AM EDT Temperature 36.5 C (97.7 F) 04/12/2023 1:29 AM EDT Respiratory Rate 22 04/12/2023 1:29 AM EDT Oxygen Saturation 97% 04/12/2023 1:29 AM EDT Inhaled Oxygen Concentration - - Weight 79.8 kg (176 lb) 09/15/2023 11:20 AM EST Height 167.6 cm (5' 6 ) 09/15/2023 11:20 AM EST Body Mass Index 28.41 09/15/2023 11:20 AM EST Plan of Treatment Health Maintenance Due Date Last Done Comments LIPID PANEL 1988 DEPRESSION SCREENING 2000 SMOKING Hx and SMOKELESS TOBACCO SCREENING 2001 HEPATITIS C SCREENING 2006 HIV ONE-TIME SCREENING (18-65 YEARS) 2006 PNEUMOCOCCAL VACCINES (0-49 years) (2 of 2 - PCV) 06/12/2018 06/12/2017 CREATININE LEVEL 04/13/2024 04/13/2023, , 04/08/2023, Additional history exists INFLUENZA VACCINE (#1) 2025 07/27/2020 COVID-19 VACCINE ( - season) 2025 SCREENING FOR DIABETES 04/13/2026 04/13/2023 Adult Td,Tdap Booster 12/03/2027 12/03/2017 HEPATITIS A VACCINES Aged Out 12/03/2017 No long er eligible based on patient's age to complete this topic HIB VACCINES Aged Out No longer eligi ble based on patient's age to complete this topic MENINGOCOCCAL VACCINES (ACWY) Aged Out No longer eligible based on patient's age to complete this topic MENINGOCOCCAL VACCINES (B) Aged Out N o longer eligible based on patient's age to complete this topic Medical Devices Not on file Procedures Procedure Name Priority Date/Time Associated Diagnosis Comments COMPREHENSIVE METABOLIC PANEL Routine 04/13/2023 6:42 AM EDT Congestive heart failure, unspecified HF chronicity, unspecified heart failure type from Last 3 Months or Most Recently Relevant to Health Maintenance Results * (ABNORMAL) Comprehensive metabolic panel (04/13/2023 6:42 AM EDT) SODIUM 140 133 - 146 mmol/L [facility] POTASSIUM 4.2 3.3 - 5.1 mmol/L [facility] CHLORIDE 109(H) 96 - 108 mmol/L [facility] CO2 19(L) 21 - 35 mmol/L [facility] BUN 10 6 - 19 mg/dL [facility] CREATININE 0.80 0.5 - 1.5 mg/dL [facility] GLUCOSE 67(L) 70 - 99 mg/dL [facility] ALBUMIN 3.7(L) 3.9 - 4.8 g/dL [facility] TOTAL PROTEIN 6.7 6.5 - 8.0 g/dL [facility] CALCIUM 8.8 8.4 - 10.3 mg/dL [facility] ALKALINE PHOSPHATASE 137(H) 39 - 117 U/L [facility] TOTAL BILIRUBIN 1.3(H) 0.0 - 1.2 mg/dL [facility] AST 13 0 - 37 U/L [facility] ALT 6 0 - 40 U/L [facility] GLOBULIN 3.0 1 - 4.8 g/dL [facility] EGFR 119 >59 mL/min/1.7 3m2 [facility] Comment:Estimated glomerular filtration rate calculated using the CKD-EPI refit equation. ANION GAP 16 10 - 20 mmol/L [facility] Blood 04/13/2023 6:42 AM EDT 04/13/2023 11:39 AM EDT us Martinez Rendon MD LAB BLOOD ORDERABLES Final Resul t [facility] [address] [place] [address] from Last 3 Months or Most Recently Relevant to Health Maintenance Insurance C3 ACO C3 ACO C3 ACO C3 ACO C3 ACO C3 ACO Care Teams Dev Ops Engineer Relationship Specialty Start Date End Date Pcp, Unknown PCP - General 12/06/19 Additional Source Comments The information contained in this document represents components of the legal health record. It is not the complete legal health record.[facility]
--- OUTSIDE RECORDS SUMMARY | 2025-07-19 19:25 | XMS_ITS | Encounter Summary ---
Author Organization [employer] Address [address] [facility] 7t [place] [address] Care Team Providers Care Mine Development Engineer Name Role Phone Nirali LottP Primary Care Provider [phone] Alba So NP Primary Care Provider [phone] Reason for Visit * Reason Onset Date Comments PT1 08/05/2023 Encounter Details Date Type Department Care Team ([facility] st Contact Info) Description 08/05/2023 Telephone [facility] [address] [place] [address] Nirali Lott FNP [address], [place] [phone] PT1 Social History Tobacco Use Types Packs/Day [...] 08/05/2023 1:12 PM EDT PT-1 Request Number [id number] is Pending * Telephone Encounter - Sage Telles - 08/05/2023 12:36 PM EDT Tc alanna Manley with [facility] Partner requesting a PT1: Name of facility: [facility] Specialty: Consult possible liver transplant Location: [address] [place] [address] Date: 08/12/2023 Time: 11:00 am fax: n/a wheelchair: no Ticket Sales Supervisor: no All future appt's documented in this encounter Plan of Treatment Upcoming Encounters Date Type Department Care Team (Late st Contact Info) Description 09/25/2025 2:00 PM EST Office Visit [facility] [address] [place] [address] Alba So NP [address] [place] [address] documented as of this encounter Visit Diagnoses Not on filedocumented in this encounter Additional Health Concerns Assessment Noted Time PHQ-9 Depression Total Score: 0 06/03/20 10:05 AM EDT documented as of this encounter Care Teams Mine Development Engineer Relationship Specialty Start Date End Date Nirali Lott FNP [address] [place] [address] PCP - General Family Medicine 07/09/23 04/13/24 Alba So NP [address] [place] [address] PCP - General Family Medicine 04/14/24 documented as of this encounter
--- OUTSIDE RECORDS SUMMARY | 2025-07-19 19:25 | XMS_ITS | Encounter Summary ---
Author Organization [employer] Address [address] [facility] 7t [place] [address] Care Team Providers Care Services Coordinator Name Role Phone Alba So GENEVA Primary Care Provider [phone] Encounter Details Date Type Department Care Team ([facility] st Contact Info) Description 07/19/2025 Orders Only [facility] External Provider, [facility] Social History Tobacco Use Types Packs/Day Years [...] Description 09/25/2025 2:00 PM EST Office Visit [facility] [address] [place], [place] [phone] Alba So NP [address] [place], [place] [phone] documented as of this encounter Procedures Procedure Name Priority Date/Time Associated Diagnosis Comments XR CHEST 2 VIEWS Routine 07/19/2025 6:24 PM EDT INFLUENZA A B2 ID NOW (CHEUNG) Routine 07/19/2025 6:22 PM EDT SLIDE REVIEW Routine 07/19/2025 6:22 PM EDT COVID-19 ID NOW (CHEUNG) Routine 07/19/2025 6:22 PM EDT HIGH SENSITIVITY TROPONIN I Routine 07/19/2025 6:22 PM EDT ETHANOL Routine 07/19/2025 6:22 PM EDT NT-PROBNP Routine 07/19/2025 6:22 PM EDT CBC WITH AUTO DIFFERENTIAL Routine 07/19/2025 6:22 PM EDT MAGNESIUM Routine 07/19/2025 6:22 PM EDT AMMONIA (P) Routine 07/19/2025 6:22 PM EDT HEPATIC FUNCTION PANEL Routine 07/19/2025 6:22 PM EDT BASIC METABOLIC PANEL Routine 07/19/2025 6:22 PM EDT documented in this encounter Results * XR Chest 2 Views (07/19/2025 6:24 PM EDT) Anatomical Region Laterality Modality Chest Radiographic Ladan ging 07/19/2025 6:24 PM EDT Narrative 07/19/2025 6:26 PM EDT [place] [address] XRay Report Signed Patient: Norberto Marquez MR#: [id number] : 1990 Acct:[id number] Age/Sex: 34 / M ADM Date: 07/19/25 Loc: HO.ED Attending Dr: Ordering Physician: Alana Carreon Date of Service: 07/19/25 Procedure(s): XR chest 2V Accession Number(s): [id number] cc: [facility]; Alana Carreon Reason for Exam: SOB CLINICAL HISTORY: SOB 2 view chest x-ray Comparison: 01/24/2025 Findings: The lungs are clear. Heart size is normal. No acute fracture. IMPRESSION: 1. No acute findings. This document has been electronically signed by: Colin Reyes MD on 07/19/2025 18:24:34 Dictated By: Colin Reyes MD Signed By: <Electronically signed by Colin Reyes MD in OV> 07/19/251824 DD/ 23 TD/TT: 07/19/251823 Agronomy Instructor: Procedure Note Donotuseinterpreter, Image - 07/19/[address] [address] XRay Report Signed Patient: Marcelo MarquezR#: [id number] : 1990Acct:[id number] Age/Sex: 34 / M[place] Date: 07/19/25 Loc: HO.ED Attending Dr: Ordering Physician: Alana Carreon Date of Service: 07/19/25 Procedure(s): XR chest 2V Accession Number(s): [id number] cc: [facility]; Alana Carreon Reason for Exam: SOB CLINICAL HISTORY: SOB 2 view chest x-ray Comparison: 01/24/2025 Findings: The lungs are clear. Heart size is normal. No acute fracture. IMPRESSION: 1. No acute findings. This document has been electronically signed by: Colin Reyes MD on 07/19/2025 18:24:34 Dictated By: Colin Reyes MD Signed By: <Electronically signed by Colin Reyes MD in OV> 07/19/251824 DD/ 23 TD/TT: 07/19/251823 Agronomy Instructor: [facility] External Provider IMG XR PROCEDURES Final Result * Slide Review (07/19/2025 6:22 PM EDT) Slide Review VERIFIED [facility] 07/19/2025 6:22 PM EDT 07/19/2025 6:27 PM EDT Generic External Data Provider LAB BLOOD ORDERAB LES Final Result [facility] [address] [place] [phone] * (ABNORMAL) CBC auto differential (07/19/2025 6:22 PM EDT) White Blood Count 5.8 4.8 - 10.8 X10*3/uL [facility] Red Blood Count 4.71 4.60 - 5.80 X10*6/uL [facility] Hemoglobin 10.8(L) 14.0 - 18.0 g/dl [facility] Hematocrit 36.1(L) 42.0 - 52.0 % [facility] Mean Corpuscular Volume 76.6(L) 80.0 - 98.0 fL [facility] Mean Corpuscular Hemoglobin 22.9(L) 27.0 - 33.0 pg [facility] Mean Corpuscular HGB Conc 29.9(L) 31.0 - 36.0 g/dl [facility] Red Cell Distribution Width 28.6(H) 11.0 - 16.0 % [facility] Platelet Count 176 160 - 400 X10*3/uL [facility] Mean Platelet Volume 10.2 9.4 - 12.4 fL [facility] Neutrophils Percent Auto 50.0 45 - 73 % [facility] Imm Gran Pct Auto 1.2(H) 0.0 - 0.4 % [facility] Lymphocytes Percent Auto 26.6 20 - 40 % [facility] Monocytes Percent Auto 17.4(H) 2 - 11 % [facility] Eosinophils Percent Auto 4.1(H) 0 - 4 % [facility] Basophils Percent Auto 0.7 0 - 2 % [facility] NRBC Pct Auto 0.0 0.0 - 0.2 /100WBC [facility] Neutrophils Absolute Auto 2.9 2.0 - 8.3 x10*3/uL [facility] Imm Gran Abs Auto 0.07(H) 0.00 - 0.03 X10*3/uL [facility] Lymphocytes Absolute Auto 1.5 1.2 - 4.9 X10*3/uL [facility] Monocytes Absolute Auto 1.0 0.1 - 1.2 X10*3/uL [facility] Eosinophils Absolute Auto 0.2 0.0 - 0.4 X10*3/uL [facility] Basophils Absolute Auto 0.0 0.0 - 0.2 X10*3/uL [facility] NRBC Abs Auto 0.000 0.0 - 0.012 X10*3/uL [facility] 07/19/2025 6:22 PM EDT 07/19/2025 6:27 PM EDT us Generic External Data Provider LAB BLOOD ORDERAB LES Edited Result - Final Performing Organization Address City/[facility]/ZIP Co de Phone Number [facility] [address] [place] [phone] * Magnesium (07/19/2025 6:22 PM EDT) Pathologist [facility] Magnesium 1.6 1.6 - 2.6 mg/dL [facility] 07/19/2025 6:22 PM EDT 07/19/2025 6:27 PM EDT Generic External Data Provider LAB BLOOD ORDERAB LES Final Result Performing Organization Address [facility] Co de Phone Number [facility] [address] [place] [phone] * (ABNORMAL) Basic Metabolic Panel (07/19/2025 6:22 PM EDT) Pathologist [facility] Sodium 138 135 - 145 mmol/L [facility] Potassium 4.5 3.3 - 5.1 mmol/L [facility] Chloride 109(H) 96 - 108 mmol/L [facility] Carbon Dioxide 21(L) 22 - 29 mmol/L [facility] Anion Gap 13 12 - 20 [facility] Urea Nitrogen (BUN) 21(H) 9 - 16 mg/dL [facility] Creatinine, Serum 0.79 0.5 - 1.4 mg/dL [facility] Creatinine Clr Calc Pharmacy 126.2 [facility] Comment:eGFR (calculated fro m the MDRD study equation) and eCrCl(calculated from the Cockcroft-Gault equation) are based ondifferent parameters and may not yield comparable results.If eCrCl result is absurd, please check patient'sheight/weight. Estimated Glomerular Filt Rate >60 [facility] Comment:Chronic Kidney Disea se: Estimated GFR < 60 mL/min/1.51t9Cydqxh Kidney Disease: Estimated GFR < 15 mL/min/1.73m2 Glucose 98 60 - 115 mg/dL [facility] Calcium 9.6 8.4 - 10.2 mg/dL [facility] 07/19/2025 6:22 PM EDT 07/19/2025 6:27 PM EDT us Generic External Data Provider LAB BLOOD ORDERAB LES Final Result Performing Organization Address [facility] Co de Phone Number [facility] [address] [place] [phone] * (ABNORMAL) Hepatic Function Panel (07/19/2025 6:22 PM EDT) Bilirubin, Total 0.9 0.0 - 1.0 mg/dL [facility] Bilirubin, Direct 0.5 0.0 - 0.5 mg/dL [facility] Aspartate Amino Transferase 94(H) 5 - 37 U/L [facility] Alanine Aminotransferase 81(H) 0 - 40 U/L [facility] Total Protein 7.1 6.5 - 8.0 g/dL [facility] Albumin Level 4.0 3.5 - 5.0 g/dL [facility] Alkaline Phosphatase 273(H) 39 - 117 U/L [facility] 07/19/2025 6:22 PM EDT 07/19/2025 6:27 PM EDT us Generic External Data Provider LAB BLOOD ORDERAB LES Final Result Performing Organization Address [facility] Co de Phone Number [facility] [address] [place] [phone] * Influenza A B2 ID NOW (Cheung) (07/19/2025 6:22 PM EDT) IDNOW SERIAL# [id number] [facility] Influenza A Negative Negative [facility] Influenza B2 Negative Negative [facility] Influenza A B2 Note See Note [facility] Comment:The Cheung ID NOW In fluenza A B2 test is used for thequalitative detection of influenza A and B from patientswith signs and symptoms of respiratory infection.Negative results do not preclude influenza virus infectionand should not be used as the sole basis for diagnosis,treatment or other patient management decisions.There is a risk of false negative results due to thepresence of variants in the viral targets of the assay, lowlevels of virus in the specimen and co- infection withRespiratory Syncytial Virus. 07/19/2025 6:22 PM EDT 07/19/2025 6:27 PM EDT us Generic External Data Provider LAB MICROBIOLOGY - GENERAL ORDERABLES Final Result [facility] [address] [place] [phone] * COVID-19 ID NOW (CHEUNG) (07/19/2025 6:22 PM EDT) IDNOW SERIAL# [id number] [facility] COVID-19 TEST Negative Negative [facility] COVID-19 NOTE See Note [facility] Comment: Results are for the identification of SARS-CoV2 RNA. TheSARS-CoV2 RNA is generally detectable in respiratory samplesduring the acute phase of infection. Positive results areindicative of the presence of SARS-CoV-2 RNA; clinicalcorrelation with patient history and other diagnosticinformation is necessary to determine patient infectionstatus. Positive results do not rule out bacterial infectionor co- infection with other viruses.Testing facilities within the [facility] and [facility] are required to report all positive results tothe appropriate public health authorities.Negative results should be treated as presumptive and, ifinconsistent with clinical signs and symptoms or necessaryfor patient management, should be tested with differentauthorized or cleared molecular tests. Negative results donot preclude SARS-CoV2 RNA infection and should not be usedas the sole basis for patient management decisions. Negativeresults should be considered in the context of a patient'srecent exposures, history and the presence of clinical signsand symptoms consistent with COVID-19.This test has been authorized by the FDA under an EmergencyUse Authorization (EUA) for use by authorized laboratories.Testing performed on the Cheung ID NOW utilizing NAAT. 07/19/2025 6:22 PM EDT 07/19/2025 6:27 PM EDT Generic External Data Provider LAB MOLECULAR [place] [facility] ORDERABLES Final Result Performing Organization Address [facility] Co de Phone Number [facility] [address] [place] [phone] * NT-proBNP (07/19/2025 6:22 PM EDT) NT-proBNP 251.0 <300 pg/mL [facility] Comment:Reference Range:Age Group (years) NT-proBNP (pg/ml) InterpretationAll <300 Negative: HF unlikelyFor patients presenting to the ED with clinical suspicion ofnew onset or worsening HF, see below:18 to <50 >299.9 to <450.0 Grayzone: [id number] to 75 >299.9 to <900.0 other causes of>75 >299.9 to <1800.0 NT-proBNP tsuytsmzo23 to <50 >449.9 Positive: HF [id number] >899.9>75 >1799.9Note: Elevated NT-proBNP levels should be interpreted inthe context of other clinical information. 07/19/2025 6:22 PM EDT 07/19/2025 6:27 PM EDT Generic External Data Provider LAB BLOOD ORDERAB LES Final Result Performing Organization Address [facility] Co de Phone Number [facility] [address] [place] [phone] * High Sensitivity Troponin I (07/19/2025 6:22 PM EDT) TROPONIN I HIGH SENSITIVITY 3.3 <3.5 - 35.0 ng/L [facility] Comment:The Cheung high sens itivity Troponin-I results should beused in conjunction with other diagnostic information suchas ECG, clinical observations and information, and patientsymptoms to aid in the diagnosis of VT. 07/19/2025 6:22 PM EDT 07/19/2025 6:27 PM EDT Generic External Data Provider LAB BLOOD ORDERAB LES Final Result Performing Organization Address [facility] Co de Phone Number [facility] [address] [place] [phone] * Ethanol (07/19/2025 6:22 PM EDT) ETHANOL (MG/DL) IN SER/PLAS <10 mg/dL [facility] Comment:Serum/plasma ethanol results are to be used formedical/treatment purposes only. 07/19/2025 6:22 PM EDT 07/19/2025 6:27 PM EDT Generic External Data Provider LAB BLOOD ORDERAB LES Final Result Performing Organization Address [facility] de Phone Number [facility] [address] [place] [phone] * (ABNORMAL) Ammonia, Plasma (07/19/2025 6:22 PM EDT) Ammonia (P) 59(H) 13 - 55 umol/L [facility] 07/19/2025 6:22 PM EDT 07/19/2025 6:27 PM EDT Generic External Data Provider LAB BLOOD ORDERAB LES Final Result Performing Organization Address [facility] de Phone Number [facility] [address] [place] [phone] documented in this encounter Visit Diagnoses Not on filedocumented in this encounter Additional Health Concerns Assessment Noted Time PHQ-9 Depression Total Score: 18 024 11:56 AM EST documented as of this encounter Care Teams Services Coordinator Relationship Specialty Start Date End Date Alba So NP [address] [place] [phone] PCP - General Family Medicine 04/14/24 documented as of this encounter
--- OUTSIDE RECORDS SUMMARY | 2025-07-19 19:25 | XMS_ITS | Encounter Summary ---
Author Organization [employer] Address [address] [facility] 7t [place] [address] Care Team Providers Care Electric Deicer Inspector Name Role Phone Alba So GENEVA Primary Care Provider [phone] Encounter Details Date Type Department Care Team (Latest Contact Info) Description 07/18/2025 Travel Social History Tobacco Use Types Packs/Day [...] Description 09/25/2025 2:00 PM EST Office Visit [facility] [address] [place] [address] Alba So NP [address] [place] [address] documented as of this encounter Visit Diagnoses Not on filedocumented in this encounter Additional Health Concerns Assessment Noted Time PHQ-9 Depression Total Score: 18 024 11:56 AM EST documented as of this encounter Care Teams Electric Deicer Inspector Relationship Specialty Start Date End Date Alba So NP [address] [place] [address] PCP - General Family Medicine 04/14/24 documented as of this encounter
--- OUTSIDE RECORDS SUMMARY | 2025-07-19 19:25 | XMS_ITS | Encounter Summary ---
Author Organization [facility] Address [address] [place] [phone] Phone Care Team Providers Care Photo Retoucher Name Role Phone Pcp, Unknown Primary Care Provider Unavailabl e Encounter Details Date Type Department Care Team (Late st Contact Info) Description 04/08/2023 Transcribe Orders [facility] Specimen Processing [address] [place] [address] Martinez Rendon MD [address] [facility] [place], [address] [place] [address] [email or web address] Congestive heart failure, unspecified HF chronicity, unspecified heart failure type (Primary Dx) Social History Tobacco Use Types Packs/Day Years Used Date Smoking Tobacco: Never Assessed Education Answer Date Recorded Are you interested in more education? Not on angela e 02/13/2023 Are you concerned about learning? Not on file 02/13/2023 No 02/13/2023 No 02/13/2023 Digital Access Answer Date Recorded No 03/17/2023 No 03/17/2023 Reliable internet access at home? Not on file 03/17/2023 Device with a working camera? Not on file Sex and Gender Information Value Date Recorded Sex Assigned at Not on file Legal Sex Male 11:51 AM EST Gender Identity Not on file Sexual Orientation Not on file documented as of this encounter Functional Status * Calculated C-SSRS Risk Score (Lifetime/Recent) Answer Date of Assessment Author No Risk Indicated 04/11/2023 7:23 PM EDT Aisha Zelaya, RN * [place] Suicide Severity Rating Scale (Screener/Recent Self-Report) Question Answer Date of Assessment Author 1. Wish to be (Past 1 Month) No 023 7:23 PM EDT Aisah Zelaya, RN 2. Non-Specific Active Suici liliaen Thoughts (Past 1 Month) No 04/11/2023 7:23 PM EDT Aisha Zelaya, RN 6. Suicidal Behavior (Lifetime) No 3 7:23 PM EDT Aisha Zelaya RN documented as of this encounter Plan of Treatment Not on file documented as of this encounter Results * (ABNORMAL) Comprehensive metabolic panel (04/08/2023 5:55 AM EDT) SODIUM 140 133 - 146 mmol/L [facility] POTASSIUM 3.8 3.3 - 5.1 mmol/L [facility] CHLORIDE 108 96 - 108 mmol/L [facility] CO2 18(L) 21 - 35 mmol/L [facility] BUN 9 6 - 19 mg/dL [facility] CREATININE 0.70 0.5 - 1.5 mg/dL [facility] GLUCOSE 78 70 - 99 mg/dL [facility] ALBUMIN 3.7(L) 3.9 - 4.8 g/dL [facility] TOTAL PROTEIN 6.9 6.5 - 8.0 g/dL [facility] CALCIUM 8.9 8.4 - 10.3 mg/dL [facility] ALKALINE PHOSPHATASE 144(H) 39 - 117 U/L [facility] TOTAL BILIRUBIN 1.5(H) 0.0 - 1.2 mg/dL [facility] AST 13 0 - 37 U/L [facility] ALT 7 0 - 40 U/L [facility] GLOBULIN 3.2 1 - 4.8 g/dL [facility] EGFR >120 >59 mL/min/1.7 3m2 [facility] Comment:Estimated glomerular filtration rate calculated using the CKD-EPI refit equation. ANION GAP 18 10 - 20 mmol/L [facility] 04/08/2023 5:55 AM EDT 04/08/2023 8:22 AM EDT us Martinez Rendon MD LAB BLOOD ORDERABLES Final Resul t [address] [address] documented in this encounter Visit Diagnoses Diagnosis Congestive heart failure, unspecified HF chronicity, unspecified heart failure type- Primary documented in this encounter Care Teams Photo Retoucher Relationship Specialty Start Date End Date Pcp, Unknown PCP - General 12/06/19 documented as of this encounter Additional Source Comments The information contained in this document represents components of the legal health record. It is not the complete legal health record.[facility]
--- OUTSIDE RECORDS SUMMARY | 2025-07-19 19:25 | XMS_ITS | Encounter Summary ---
Author Organization [employer] Address [address] [facility] 7t [place] [address] Care Team Providers Care Speedometer Inspector Name Role Phone Nirali LottP Primary Care Provider [phone] Alba So NP Primary Care Provider [phone] Reason for Visit * Reason Onset Date Comments Referral 10/16/2023 Encounter Details Date Type Department Care Team ([facility] st Contact Info) Description 10/16/2023 Telephone [facility] [address] [place] [address] Nirali Lott FNP [address] [place] [address] Referral Social History Tobacco Use Types Packs/Day [...] - 10/16/2023 10:22 AM EST Tc from [facility] never received referral. documented in this encounter Plan of Treatment Upcoming Encounters Date Type Department Care Team (Late st Contact Info) Description 09/25/2025 2:00 PM EST Office Visit [facility] [address] [place] [address] Alba So NP [address] [place] [address] documented as of this encounter Visit Diagnoses Not on filedocumented in this encounter Additional Health Concerns Assessment Noted Time PHQ-9 Depression Total Score: 0 06/03/20 23 10:05 AM EDT documented as of this encounter Care Teams Speedometer Inspector Relationship Specialty Start Date End Date Nirali Lott FNP [address] [place] [address] PCP - General Family Medicine 07/09/23 04/13/24 Alba So NP [address] [place] [address] PCP - General Family Medicine 04/14/24 documented as of this encounter
--- OUTSIDE RECORDS SUMMARY | 2025-07-19 19:25 | XMS_ITS | Encounter Summary ---
Author Organization [employer] Address [address] [facility] 7t [place] [address] Care Team Providers Care Lettuce Trimmer Name Role Phone Nirali Lott Primary Care Provider [phone] Alba So NP Primary Care Provider [phone] Reason for Referral * Consultation (Routine) - Closed Specialty Diagnoses / Procedures Referred By Merle t Referred To Contact Hand Surgery Diagnoses Pain in finger of left hand Nirali Lott FNP [address] [place] [address] Phone: tel: fax: [facility] Orth[facility]ics [address] [place] [address] Phone: tel: Referral ID Status Reason Start Date Expiration Date V isits Requested Visits Authorized [id number] Closed Specialty Services Required 12/23/2023 12/22/2024 6 6 Encounter Details Date Type Department Care Team (Late st Contact Info) Description 12/23/2023 Orders Only [facility] [address] [place] [address] Nirali Lott FNP [address] [place] [address] Pain in finger of left hand (Primary [...] Description 09/25/2025 2:00 PM EST Office Visit [facility] [address] [place] [address] Alba So NP [address] [place] [address] Scheduled Referrals Name Type Priority Associated Diagnoses [...] documented as of this encounter Care Teams Lettuce Trimmer Relationship Specialty Start Date End Date Nirali Lott FNP [address] [place] [address] PCP - General Family Medicine 07/09/23 04/13/24 Alba So NP [address] [place] [address] PCP - General Family Medicine 04/14/24 documented as of this encounter
--- OUTSIDE RECORDS SUMMARY | 2025-07-19 19:25 | XMS_ITS | Encounter Summary ---
Author Organization [employer] Address [address] [facility] 7t [place] [address] Care Team Providers Care It Quality Assurance Analyst Name Role Phone Nriali LottP Primary Care Provider [phone] Alba So NP Primary Care Provider [phone] Reason for Visit * Reason Onset Date Comments PT1 10/02/2023 Encounter Details Date Type Department Care Team ([facility] st Contact Info) Description 10/02/2023 Telephone [facility] MEDICINE [address] [place] [address] Nirali Lott FNP [address] [place], [place] [phone] PT1 Social History Tobacco Use Types Packs/Day [...] 10/02/2023 11:00 AM EST PT-1 Request Number [id number] is Pending * Telephone Encounter - Christine Mak - 10/02/2023 10:32 AM EST Tc alanna Cruz with ICP requesting PT1 transportation. Date: 10/20/2022 Time: 10:15 Visits: 12 a year Address: [address] [place] [address] [facility] Chair: n/a Baccarat Dealer Needed: n/a documented in this encounter Plan of Treatment Upcoming Encounters Date Type Department Care Team (Late st Contact Info) Description 09/25/2025 2:00 PM EST Office Visit [facility] MEDICINE [address] [place] [address] Alba So NP [address] [place] [address] documented as of this encounter Visit Diagnoses Not on filedocumented in this encounter Additional Health Concerns Assessment Noted Time PHQ-9 Depression Total Score: 0 06/03/20 23 10:05 AM EDT documented as of this encounter Care Teams It Quality Assurance Analyst Relationship Specialty Start Date End Date Nirali Lott FNP [address] [place] [address] PCP - General Family Medicine 07/09/23 04/13/24 Alba So NP [address] [place] [phone] PCP - General Family Medicine 04/14/24 documented as of this encounter
--- OUTSIDE RECORDS SUMMARY | 2025-07-19 19:25 | XMS_ITS | Encounter Summary ---
Author Organization [employer] Address [address] [facility] 7t [place] [address] Care Team Providers Care Material Distributor Name Role Phone Alba So GENEVA Primary Care Provider [phone] Encounter Details Date Type Department Care Team (Late st Contact Info) Description 04/26/2024 Orders Only [facility] MEDICINE [address] [place] [address] Varun Givens, PharmD [address] [place] [address] Social History Tobacco Use Types Packs/Day Years [...] Description 09/25/2025 2:00 PM EST Office Visit [facility] MEDICINE [address] [place] [address] Alba So NP 230 [place] [address] documented as of this encounter Visit Diagnoses Not on filedocumented in this encounter Additional Health Concerns Assessment Noted Time PHQ-9 Depression Total Score: 0 06/03/20 23 10:05 AM EDT documented as of this encounter Care Teams Material Distributor Relationship Specialty Start Date End Date Alba So NP [address] [place] [address] PCP - General Family Medicine 04/14/24 documented as of this encounter
--- OUTSIDE RECORDS SUMMARY | 2025-07-19 19:25 | XMS_ITS | Encounter Summary ---
Author Organization [facility] Address [address] [place] [phone] Phone Care Team Providers Care Vacuum Pan Operator Name Role Phone Pcp, Unknown Primary Care Provider Unavailabl e Encounter Details Date Type Department Care Team (Late st Contact Info) Description 10/20/2023 Transcribe Orders Virtual Department [address] [place] [address] Lucy Best PA [address] [place], [place] [phone] [email or web address] Anemia, unspecified type (Primary Dx) Social History Tobacco Use [...] as of this encounter Visit Diagnoses Diagnosis Anemia, unspecified type- Primary documented in this encounter Care Teams Vacuum Pan Operator Relationship Specialty Start Date End Date Pcp, Unknown PCP - General 12/06/19 documented as of this encounter Additional Source Comments The information contained in this document represents components of the legal health record. It is not the complete legal health record.[facility]
--- OUTSIDE RECORDS SUMMARY | 2025-07-19 19:25 | XMS_ITS | Encounter Summary ---
Author Organization [employer] Address [address] [facility] 7t [place] [address] Care Team Providers Care Bootmaker Name Role Phone GrahamFabriziomarty Harris [employer]INTER Primary Care Provider Madisyn Jin [place] Primary Care Provider Unavail Nirali Diaz [employer]INTER Primary Care Provider [phone] Alba So NP Primary Care Provider [phone] Encounter Details Date Type Department Care Team (Late st Contact Info) Description 01/05/2023 Orders Only [facility] [address] [place] [address] Nohemi Greene FNP Social History Tobacco Use [...] empyema, recurrent bacteremia and endocarditis,was admitted to [facility] on 07/16/22 for evaluation of chest pain [...] mom and was in a program in [place] and wasdischarged October 23, now lives at home with [...] Description 09/25/2025 2:00 PM EST Office Visit [facility] MED[facility] [address] [place] [address] Alba So NP [address] [place], [place] [phone] documented as of this encounter Procedures Procedure [...] EDT 04/13/2023 3:00 PM EDT Comment:Blood Narrative [facility] - 04/18/2023 5:00 PM EDT Blood Culture (Second) No growth after 5 days. Specimen Source: Blood [facility] Exter nal Provider LAB MICROBIOLOGY - GENERAL ORDERABLES Final Result Performing Organization Address [facility]/ZIP Co de Phone Number [facility] [address] [place] [address] [phone] * Blood Culture (First) (04/13/2023 2:20 PM EDT) Blood 04/13/2023 2:20 PM EDT 04/13/2023 3:00 PM EDT Comment:Blood Narrative [facility] - 04/18/2023 5:00 PM EDT Blood Culture (First) No growth after 5 days. Specimen Source: Blood [facility] Exter nal Provider LAB MICROBIOLOGY - GENERAL ORDERABLES Final Result Performing Organization Address [facility]/ZIP Co de Phone Number [facility] [address] [place] [phone] * (ABNORMAL) Urinalysis, Complete, with Reflex to Culture (03/16/2023 6:50 PM EDT) Color Urine Dark Yellow [facility] Appearance Urine Clear [facility] PH 6.5 5.0 - 9.0 [facility] Glucose Urine UA Negative Negative mg/dL [facility] Urine Blood Small (1+)(A) Negative [facility] Specific [place] - Urine 1.015 1.005 - 1.025 [facility] Urine Protein 100 (2+)(A) Neg-Trace mg/dL [facility] Urine Ketones Negative Negative mg/dL [facility] Nitrite Urine Positive(A) Negative [facility] Leukocyte Esterase Urine Small (1+)(A) Negative [facility] RBC Urine >20(A) 0 - 2 /HPF [facility] Urine WBC 6-10(A) 0 - 5 /HPF [facility] Urine Squamous Epithelial Cell 0-2 0 - 2 /HPF [facility] Urine Bacteria None Seen None Seen [facility] Hyaline Casts, Urine 0-2 0 - 2 /LPF [facility] 03/16/2023 6:50 PM EDT 03/16/2023 7:08 PM EDT Narrative [facility] - 03/16/2023 7:57 PM EDT Urine, Clean Catch us [facility] External Provider LAB URI NE ORDERABLES Final Result [facility] [address] [place] [phone] * (ABNORMAL) CBC auto differential (03/16/2023 5:18 PM EDT) White Blood Count 11.0(H) 4.8 - 10.8 X10*3/uL [facility] Red Blood Count 4.07(L) 4.60 - 5.80 X10*6/uL [facility] Hemoglobin 9.7(L) 14.0 - 18.0 g/dl [facility] Hematocrit 30.7(L) 42.0 - 52.0 % [facility] Mean Corpuscular Volume 75.4(L) 80.0 - 98.0 fL [facility] Mean Corpuscular Hemoglobin 23.8(L) 27.0 - 33.0 pg [facility] Mean Corpuscular HGB Conc 31.6 31.0 - 36.0 g/dl [facility] Red Cell Distribution Width 31.5(H) 11.0 - 16.0 % [facility] Platelet Count 597(H) 160 - 400 X10*3/uL [facility] Mean Platelet Volume 9.8 9.4 - 12.4 fL [facility] Neutrophils Percent Auto 60.7 45 - 73 % [facility] Imm Gran Pct Auto 2.0(H) 0.0 - 0.4 % [facility] Lymphocytes Percent Auto 24.7 20 - 40 % [facility] Monocytes Percent Auto 10.5 2 - 11 % [facility] Eosinophils Percent Auto 1.1 0 - 4 % [facility] Basophils Percent Auto 1.0 0 - 2 % [facility] NRBC Pct Auto 0.0 0.0 - 0.2 /100WBC [facility] Neutrophils Absolute Auto 6.7 2.0 - 8.3 x10*3/uL [facility] Imm Gran Abs Auto 0.22(H) 0.00 - 0.03 X10*3/uL [facility] Lymphocytes Absolute Auto 2.7 1.2 - 4.9 X10*3/uL [facility] Monocytes Absolute Auto 1.2 0.1 - 1.2 X10*3/uL [facility] Eosinophils Absolute Auto 0.1 0.0 - 0.4 X10*3/uL [facility] Basophils Absolute Auto 0.1 0.0 - 0.2 X10*3/uL [facility] NRBC Abs Auto 0.000 0.0 - 0.012 X10*3/uL [facility] 03/16/2023 5:18 PM EDT 03/16/2023 5:24 PM EDT us [facility] External Provider LAB BLO OD ORDERABLES Final Result [facility] [address] [place] [phone] * High Sensitivity Troponin I (03/16/2023 5:18 PM EDT) TROPONIN I HIGH SENSITIVITY 11.4 <3.5 - 35.0 ng/L [facility] Comment:The Coley high sens itivity Troponin-I results should beused in conjunction with other diagnostic information suchas ECG, clinical observations and information, and patientsymptoms to aid in the diagnosis of [place]. 03/16/2023 5:18 PM EDT 03/16/2023 5:24 PM EDT [facility] External Provider LAB BLO OD ORDERABLES Final Result Performing Organization Address [facility] Co de Phone Number [facility] [address] [place] [phone] * (ABNORMAL) B Type Natriuretic Peptide (BNP) (03/16/2023 5:18 PM EDT) B Type Natriuretic Peptide 378(H) <100 pg/mL [facility] Comment:For those patients w ho are being treated with Natrecor(nesiritide, recombinant BNP), BNP testing should beperformed at least two hours post treatment in order toensure that only endogenous levels of BNP are detected. 03/16/2023 5:18 PM EDT 03/16/2023 5:24 PM EDT [facility] External Provider LAB BLO OD ORDERABLES Final Result Performing Organization Address [facility] Co de Phone Number [facility] [address] [place] [phone] * (ABNORMAL) Lipase (03/16/2023 5:18 PM EDT) Lipase 168(H) 8 - 78 U/L [facility] 03/16/2023 5:18 PM EDT 03/16/2023 5:24 PM EDT [facility] External Provider LAB BLO OD ORDERABLES Final Result Performing Organization Address [facility] Co de Phone Number [facility] [address] [place] [phone] [phone] * (ABNORMAL) Basic Metabolic Panel (03/16/2023 5:18 PM EDT) Sodium 139 135 - 145 mmol/L [facility] Potassium 3.0(L) 3.3 - 5.1 mmol/L [facility] Chloride 106 96 - 108 mmol/L [facility] Carbon Dioxide 20(L) 22 - 29 mmol/L [facility] Anion Gap 16 12 - 20 [facility] Urea Nitrogen (BUN) 8(L) 9 - 16 mg/dL [facility] Creatinine, Serum 0.74 0.5 - 1.4 mg/dL [facility] Creatinine Clr Calc Pharmacy 131.5 [facility] Comment:eGFR (calculated fro m the MDRD study equation) and eCrCl(calculated from the Cockcroft-Gault equation) are based ondifferent parameters and may not yield comparable results.If eCrCl result is absurd, please check patient'sheight/weight. Estimated Glomerular Filt Rate >60 [facility] Comment:NOTE: For -Am erican individuals, multiply the result by 1.210.Chronic Kidney Disease: Estimated GFR < 60 mL/min/1.94w6Kqpber Kidney Disease: Estimated GFR < 15 mL/min/1.73m2 Glucose 84 60 - 115 mg/dL [facility] Calcium 9.4 8.4 - 10.2 mg/dL [facility] 03/16/2023 5:18 PM EDT 03/16/2023 5:24 PM EDT us [facility] External Provider LAB BLO OD ORDERABLES Final Result [facility] [address] [place] [phone] * (ABNORMAL) Hepatic Function Panel (03/16/2023 5:18 PM EDT) Bilirubin, Total 5.9(H) 0.0 - 1.0 mg/dL [facility] Bilirubin, Direct 3.5(H) 0.0 - 0.5 mg/dL [facility] Aspartate Amino Transferase 19 5 - 37 U/L [facility] Alanine Aminotransferase 13 0 - 40 U/L [facility] Total Protein 7.7 6.5 - 8.0 g/dL [facility] Albumin Level 3.9 3.5 - 5.0 g/dL [facility] Alkaline Phosphatase 154(H) 39 - 117 U/L [facility] 03/16/2023 5:18 PM EDT 03/16/2023 5:24 PM EDT [facility] External Provider LAB BLO OD ORDERABLES Final Result Performing Organization Address [facility] Co de Phone Number [facility] [address] [place] [phone] * Lactic Acid (03/16/2023 5:18 PM EDT) Lactic Acid 1.7 0.5 - 2.0 mmol/L [facility] 03/16/2023 5:18 PM EDT 03/16/2023 5:24 PM EDT [facility] External Provider LAB BLO OD ORDERABLES Final Result Performing Organization Address [facility] Co de Phone Number [facility] [address] [place] [phone] documented in this encounter Visit Diagnoses Not on filedocumented in this encounter Care Teams Bootmaker Relationship Specialty Start Date End Date Megan Stevenson FNP PCP - General Family Medicine 03/27/22 04/23/23 Jin Mack AGNP PCP - General Family Medicine 04/24/23 07/08/23 Nirali Lott FNP [address] [place] [address] PCP - General Family Medicine 07/09/23 04/13/24 Alba So NP [address] [place] [address] PCP - General Family Medicine 04/14/24 documented as of this encounter
--- OUTSIDE RECORDS SUMMARY | 2025-07-19 19:25 | XMS_ITS | Encounter Summary ---
Author Organization [employer] Address [address] [facility] [address] 7t [place] [address] Care Team Providers Care Cell Tender Name Role Phone Nirali Lott Primary Care Provider [phone] Alba So NP Primary Care Provider [phone] Encounter Details Date Type Department Care Team (Late st Contact Info) Description 10/27/2023 Orders Only [facility] [address] [place] [address] Nirali Lott FNP [address] [place] [address] Infective endocarditis of tricuspid valve (Primary Dx) [...] Description 09/25/2025 2:00 PM EST Office Visit [facility] MEDICINE [address] [place], [place] [phone] Alba So NP [address] [place] [address] documented as of this encounter Procedures Procedure Name Priority Date/Time Associated Diagnosis Comments CT LIVER 3 PHASE Routine 10/27/2023 4:35 PM EST documented in this encounter Results * CT liver 3 phase (10/27/2023 4:35 PM EST) Anatomical Region Laterality Modality Liver Computed Tomogra phy 10/27/2023 4:35 PM EST Narrative 11/02/2023 11:06 AM EST [address] [address] [address] Scan Report Signed Patient: Norberto Marquez MR#: [id number] : 1990 Acct:[id number] Age/Sex: 33 / M ADM Date: 10/27/23 Loc: HO.CT Attending Dr: Randa Chisholm MD Ordering Physician: Randa Chisholm MD Date of Service: 10/27/23 Procedure(s): CT liver 3 phase Accession Number(s): [id number] cc: Randa Chisholm MD; [facility] EXAMINATION: CT ABDOMEN without and WITH [...] in OV> 11/02/23 1101 DD/ 1635 TD/TT: Zigzag Topstitcher: SS Procedure Note Donotuseinterpreter, Image - 11/03/[address] [place] [address] [address] Scan Report Signed Patient: Zully Marquez#: [id number] : 1990Acct:[id number] Age/Sex: 33 / MADM Date: 10/27/23 Loc: HO.CT Attending Dr: Randa Chisholm MD Ordering Physician: Randa Chisholm MD Date of Service: 10/27/23 Procedure(s): CT liver 3 phase Accession Number(s): [id number] cc: Randa Chisholm MD; [facility] EXAMINATION: CT ABDOMEN without and WITH [...] in OV> 11/02/23 1101 DD/ 1635 TD/TT: Zigzag Topstitcher: [facility] External Provider IMG CT PROCEDURES Final Result documented in this encounter Visit Diagnoses Diagnosis Infective endocarditis of tricuspid valve- Primary documented in this encounter Additional Health Concerns Assessment Noted Time PHQ-9 Depression Total Score: 0 06/03/20 10:05 AM EDT documented as of this encounter Care Teams Cell Tender Relationship Specialty Start Date End Date Nirali Lott FNP [address] [place] [address] PCP - General Family Medicine 07/09/23 04/13/24 Alba So NP [address] [place] [address] PCP - General Family Medicine 04/14/24 documented as of this encounter
--- OUTSIDE RECORDS SUMMARY | 2025-07-19 19:26 | XMS_ITS | Encounter Summary ---
Author Organization [employer] Address 75 [facility] 7t [place] [address] Care Team Providers Care Shipping Weigher Name Role Phone Mack Jin WHITTEN Primary Care Provider Unavail able Nirali Lott Primary Care Provider [phone] Alba So NP Primary Care Provider [phone] Encounter Details Date Type Department Care Team ([facility] Contact Info) Description 06/08/2023 Orders Only [facility] [address] [place], [place] [phone] Nirali Lott FNP [address] [place] [address] Chronic hepatitis C without hepatic coma (CMS/HCC) [...] Upcoming Encounters Date Type Department Care Team ([facility] Contact Info) Description 09/25/2025 2:00 PM EST Office Visit [facility] MEDICINE [address] [place] [address] Alba So NP [address] [place] [address] documented as of this encounter Visit Diagnoses Diagnosis Chronic hepatitis C without hepatic coma (HCC)- Primary documented in this encounter Additional Health Concerns Assessment Noted Time PHQ-9 Depression Total Score: 0 06/03/20 10:05 AM EDT documented as of this encounter Care Teams Shipping Weigher Relationship Specialty Start Date End Date Jin Mack AGNP PCP - General Family Medicine 04/24/23 07/08/23 Nirali Lott FNP [address] [place] [address] PCP - General Family Medicine 07/09/23 04/13/24 Alba So NP [address] [place] [address] PCP - General Family Medicine 04/14/24 documented as of this encounter
--- OUTSIDE RECORDS SUMMARY | 2025-07-19 19:26 | XMS_ITS | Encounter Summary ---
Author Organization [employer] Address 75 [facility] 7t [place] [address] Care Team Providers Care Holistic Health Practitioner Name Role Phone Alba So NP Primary Care Provider [phone] Encounter Details Date Type Department Care Team (Late st Contact Info) Description 12/21/2024 Orders Only [facility] MEDICINE [address] [place] [address] Alba So NP [address] [place] [address] Social History Tobacco Use Types Packs/Day Years [...] 09/25/2025 2:00 PM EST Office Visit [facility] MEDICINE [address] [place] [address] Alba So NP [address] [place] [address] documented as of this encounter Visit Diagnoses Not on filedocumented in this encounter Additional Health Concerns Assessment Noted Time PHQ-9 Depression Total Score: 18 024 11:56 AM EST documented as of this encounter Care Teams Holistic Health Practitioner Relationship Specialty Start Date End Date Alba So NP [address] [place] [address] PCP - General Family Medicine 04/14/24 documented as of this encounter
--- OUTSIDE RECORDS SUMMARY | 2025-07-19 19:26 | XMS_ITS | Encounter Summary ---
Author Organization [employer] Address 75 [facility] 7t [place] [address] Care Team Providers Care Environmental Health Technician Name Role Phone Alba So NP Primary Care Provider [phone] Encounter Details Date Type Department Care Team (Late st Contact Info) Description 07/07/2025 Results Follow-Up [facility] MEDICINE [address] [place] [address] Alba So NP [address] [place] [address] CBC auto differential, Complete Blood Count Manual Diff, Prothrombin Time-INR, Additional followed-up results: 7 Social History Tobacco Use Types Packs/Day Years [...] [facility] MEDICINE [address] [place] [address] Alba So NP [address] [place] [address] documented as of this encounter Visit Diagnoses Not on filedocumented in this encounter Additional Health Concerns Assessment Noted Time PHQ-9 Depression Total Score: 18 024 11:56 AM EST documented as of this encounter Care Teams Environmental Health Technician Relationship Specialty Start Date End Date Alba So NP [address] [place] [address] PCP - General Family Medicine 04/14/24 documented as of this encounter
--- OUTSIDE RECORDS SUMMARY | 2025-07-19 19:26 | XMS_ITS | Clinical Summary ---
Author Organization [facility] Facility Address [address] [place] [address], [place] [address] Care Team Providers Care Special Service Representative Name Role Phone Unavailable Primary Care Provider [...] age to complete this topic [place]
--- OUTSIDE RECORDS SUMMARY | 2025-07-19 19:26 | XMS_ITS | Encounter Summary ---
Author Organization [email or web address] Address 75 [facility] 7t [place] [address] Care Team Providers Care Statistical Methods Teacher Name Role Phone Alba So GENEVA Primary Care Provider [phone] Encounter Details Date Type Department Care Team (Latest Contact Info) Description 07/15/2025 Travel Social History Tobacco Use Types Packs/Day [...] with others, in a hotel, in a residential, living outside on the street, on a [...] Description 09/25/2025 2:00 PM EST Office Visit [facility] MEDICINE [address] [place] [address] Alba So NP [address] [place] [address] documented as of this encounter Visit Diagnoses Not on filedocumented in this encounter Additional Health Concerns Assessment Noted Time PHQ-9 Depression Total Score: 18 024 11:56 AM EST documented as of this encounter Care Teams Statistical Methods Teacher Relationship Specialty Start Date End Date Alba So NP [address] [place] [address] PCP - General Family Medicine 04/14/24 documented as of this encounter
--- OUTSIDE RECORDS SUMMARY | 2025-07-19 19:26 | XMS_ITS | Clinical Summary ---
Author Organization [employer] Address [address] [facility] [address] [place] [address] Care Team Providers Care Gathering Machine Setter Name Role Phone Alba So GENEVA Primary Care Provider [phone] Allergies No known active allergies Medications * This document contains information received from the source organization and may not represent a complete record from that organization. gabapentin (Neurontin) 100 MG capsule Take 200 mg by mouth 3 times daily. Active methadone (Dolophine) 10 MG tablet Take 90 mg by mouth Once per day. Take 95 mg by mouth every morning Active thiamine (Vitamin B-1) 100 MG tablet Take 1 tablet by mouth Once per day. 09/29/20 24 Active midodrine (Proamatine) 2.5 MG tabletIndicati ons:History of artificial heart valve Take 1 tablet (2.5 mg) by mouth 3 times daily. 90 tablet 11/21/19 25 Active Blood Pressure kit 1 each 2 times daily. 1 kit 12/22/19 25 026 Active naloxone (Narcan) 4 mg/0.1 mL nasal spray PLEASE SEE ATTACHED FOR DETAILED DIRECTIONS 01/02/20 25 Active magnesium oxide (Mag-Ox) 400 MG tablet Take 1 tablet by mouth 2 times daily. 01/14/20 25 Active spironolactone (Aldactone) 25 MG tabletIndicati ons:History of artificial heart valve TAKE 2 TABLETS BY MOUTH EVERY DAY DIRECTED 30 tablet 02/21/20 25 Active betamethasone valerate (Valisone) 0.1 % ointment Apply topically if needed in the morning and at bedtime (dryness). 45 g 2 07/15/20 25 Active Eliquis 5 MG tabletIndicati ons:Hx pulmonary embolism Take 1 tablet (5 mg) by mouth 2 times daily. 60 tablet 2 07/18/20 25 Active furosemide (Lasix) 20 MG tabletIndicati ons:Hx of heart failure Take 1 tablet (20 mg) by mouth Once per day. 90 tablet 07/18/20 Active Ventolin HFA 108 (90 Base) MCG/ACT inhaler Inhale 1-2 puffs Every 4-6 hours as needed for wheezing. 06/02/20 Active ferrous sulfate 325 (65 Fe) MG tablet Take 1 tablet by mouth every other day. 06/02/20 Active sertraline (Zoloft) 50 MG tablet Take 1 tablet by mouth Once per day. 06/02/20 Active traZODone (Desyrel) 50 MG tablet Take 1 tablet by mouth at bedtime. 06/02/20 Active hydrOXYzine pamoate (Vistaril) 50 MG capsule Take 1 capsule by mouth if needed in the morning, at noon, and at bedtime for anxiety. 06/02/20 25 Active docusate sodium (Colace) 100 MG capsule Take 1 capsule by mouth if needed at bedtime. 10/27/19 025 Discontinued(Me d list cleanup (will not trigger notification to Pharmacy)) furosemide (Lasix) 20 MG tablet Take 20 mg by mouth in the morning. 08/13/20 025 Discontinued(Re order (will not trigger notification to Pharmacy)) HealthyLax 17 g packet MIX 1 PACKET MIXED WITH 8 OUNCES OF FLUID AND DRINK ORALLY ONCE A DAY 04/19/20 025 Discontinued(Me d list cleanup (will not trigger notification to Pharmacy)) ferrous sulfate 325 (65 Fe) MG EC tablet Take 325 mg by mouth with breakfast. 09/29/20 025 Discontinued(Me d list cleanup (will not trigger notification to Pharmacy)) Eliquis 5 MG tablet Take 1 tablet by mouth 2 times daily. 01/14/20 025 Discontinued(Re order (will not trigger notification to Pharmacy)) Albuterol Sulfate (ProAir RespiClick) 108 (90 Base) MCG/ACT aerosol powder TAKE 2 PUFFS BY MOUTH EVERY 4 TO 6 HOURS NEEDED FOR SHORTNESS OF BREATH /WHEEZE 1 each 02/21/20 25 025 Discontinued(Me d list cleanup (will not trigger notification to Pharmacy)) Active Problems Problem Noted Date Diagnosed Date Venous stasis dermatitis of both lower extremiti es 07/15/2025 Assessment & Plan (07/15/2025 12:15 PM EDT): Patient will use betamethasone ointment twice daily for 2 weeks then once daily. Advised to apply compression and come to the walk-in center or ED if he has variceal bleeding. Will refer to vascular surgeon for varicectomy, given recurrent bleeding, dermatitis and other complications he may need surgical intervention Portal hypertension (CMS/HCC) 06/09/2025 Drug intoxication (CMS/HCC) 02/10/2025 Influenza 02/10/2025 Left leg pain 02/10/2025 Open wound of left lower leg 02/10/2025 Respiratory syncytial virus (RSV) 02/10/2025 Anemia of chronic disease 02/10/2025 Anemia 02/10/2025 Cellulitis of left leg 02/10/2025 Abdominal pain 02/10/2025 Bleeding from varicose veins of left lower extre mity 02/10/2025 Varicose veins of left lower extremity with infl ammation 02/10/2025 Drug abuse 02/10/2025 Opioid use disorder, severe, dependence (CMS/HCC ) 02/10/2025 History of pulmonary embolism 02/10/2025 Pulmonary embolism 02/10/2025 Overview (02/10/2025): november 2020, incomplete treatment Chronic hepatitis C (CMS/HCC) 02/10/2025 HCV (hepatitis C virus) 02/10/2025 Overview [...] treatment, ambulance called and expect called to [facility]. 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 Assessment & Plan (11/21/2024 7:05 PM EST): Pt with complicated hx and difficulty with out patient compliance Meds reconciled with [facility] discharge documents and refilled Pt prefers to seek care at [facility] today for ongoing cardiac issues Endocarditis 10/17/2024 History of endocarditis 10/17/2024 Hyperbilirubinemia 10/17/2024 Hypertension 10/17/2024 Hypokalemia 10/17/2024 Hypomagnesemia 10/17/2024 Hypoxia 10/17/2024 Drug abuse, IV (CMS/HCC) 10/17/2024 Assessment & Plan (11/21/2024 7:07 PM EST): Pt reports relapse since discharge due to lower mathdone dose Encouraged ongoing supports for reducing ivdu Intravenous drug user 10/17/2024 Leukocytosis 10/17/2024 Osteomyelitis of left hand (CMS/HCC) 10/17/2024 Overview (10/17/2024): Left index finger Osteomyelitis of finger of right hand (CMS/HCC) 10/17/2024 Pneumonia 10/17/2024 Polysubstance abuse 10/17/2024 Assessment [...] congestive and HCV Shortness of breath 10/17/2024 Assessment & Plan (07/18/2025 10:05 AM EDT): Shortness of breath and hypoxia (92%) on RA in pt with complicated medical history of PE, IVDA with history endocarditis, cirrhosis and recent hospitalization for possible drug induced pneumonits. Normal pulmonary exam. I advised he go to the ER now via ambulance for work up for PE, endocarditis, heart failure vs other. He refuses to go to ER. States he understands that he could suffer serious consequences including if he does not go to the ER for further work up. We offered multiple options of transportation and comfort including food and contacting his treatment center. Pt refused and left AMA. He requested multiple medications after leaving AMA. I confirmed with pharmacy. I have written for his Elquis and Lasix but told him he needed to come to his hospital follow up apt tomorrow to get his other medications in hopes it will encourage him to follow up as scheduled tomorrow. He is aware of the appointment. Orders: Influenza A (ID NOW Rapid Molecular) Influenza B (ID NOW Rapid Molecular) POCT Rapid COVID Ag POCT rapid strep A manually resulted Sepsis (CMS/HCC) 10/17/2024 Overview (10/17/2024): He has completed six [...] he gets home to be transported to [facility] for stitching as he did not want to be transported directly from the clinic Hx of pulmonary embolus 04/18/2023 Overview (04/18/2023): Treating w/ Xarelto 20 mg daily while at [facility] 03/16/23-04/15/23 (anticipated discharge date) Anemia, chronic disease 10/09/2022 Symptomatic anemia 10/09/2022 Overview (10/09/2022): Acute anemia related to tooth extractions on 10/01/22 while still on xarelto for anticoagulation. Taken to [place] ED, bleeding gums, not able to stop with pressure Hemoglobin 3 Received 1 prbc transfusion Transferred to [facility] for admission on 10/02/22. Received another transfusion Discharged 10/06/22 Ascites 07/21/2022 Bacteremia 07/21/2022 Overview (04/18/2023): Recurrent bacteremia and endocarditis found 03/04/23. Admitted. Left AMA on 03/14/23 Returned 03/15/23. Admitted again with plan to transfer to [facility], [facility], to continue antibiotics until 04/15 to [...] No return visit necessary Cirrhosis of liver (CMS/HCC) 07/21/2022 Overview (04/18/2023): 07/20/22 - Not previously [...] -but seems symptoms are cronic Heroin dependence (CMS/HCC) 06/27/2022 Overview (08/23/2024): Admitted to [facility] for rehab Treated w/ Methadone 40 mg at [facility] 03/16/23-04/15/23 -referred to [facility] 08/23/24 Assessment & Plan (08/23/2024 2:45 PM EST): Admitted to [facility] for rehab Treated w/ Methadone 40 mg at [facility] 03/16/23-04/15/23 -referred to [facility] 08/23/24 Assessment & [...] by GI Alcohol dependence 01/01/2021 Bacterial arthritis (CMS/HCC) 01/01/2021 Cocaine dependence 01/01/2021 Infective endocarditis of tricuspid valve 2020 Overview (10/09/2022): 07/16/22 - Presented to [facility] ED with hypotension, found to be in septic shock 07/20/22 - Left hospital AMA before completing IV antibiotics. Blood cultures positive for GBS and required pressor support when he arrived. 07/21/22 - Mother took Pt to [facility] ED since he left [facility] AMA. Pt IV drug use while at ED. Unstable. Chest x-ray positive for opacities consistent with pneumonia, WBC elevated, still having bacteremia. Left hospital AMA as well on 07/21/22. Emphasized to Pt risk to life if infection was not treated. Septic pulmonary embolism (CMS/HCC) 01/01/2021 Overview (10/09/2022): 07/16/22-07/20/22 Pt hx of pulmonary septic embolic that required drainage earlier in 2021. On recent admission D-Dimer was elevated and CT angio chest showed bilateral PE and septic emboli. started Heparin drip Tobacco dependence syndrome 01/01/2021 Viral hepatitis C 01/01/2021 Overview (04/18/2023): Care managed by GI No known treatment or fibrosis score as of 04/13/23 [facility] ED notes Assessment & Plan (08/06/2023 8:36 PM EDT): Hep C active complicated w decompensated cirrhosis with ascitis Hep C to start tx following now w GI at [facility] per pt Assessment & Plan (06/03/2023 2:07 PM EDT): Patient not sure if he received a referral to [facility] for hep c treatment or not. I will place a referral to our [facility] hep c team. Encounters Date Type Department Care Team Description 07/19/2025 10:00 AM EDT Office Visit [facility] MEDICINE [address] [place] [phone] Viviana Cruz FNP 07/19/2025 Orders Only [facility] External Provider, [facility] 07/19/2025 Travel 07/18/2025 9:20 AM EDT Office Visit [facility] WALK-IN CENTER [address] [place] [phone] Nighat Galloway MD Hx pulmonary embolism (Primary Dx); Shortness of breath; Hx of heart failure 07/18/2025 Travel 07/17/2025 Telephone [facility] MEDICINE [address] [place] [phone] Malika Garnett, Glynn 07/15/2025 10:40 AM EDT Office Visit [facility] WALK-IN CENTER [address] [place] [phone] Daniela Vaughn MD Venous stasis dermatitis of both lower extremities (Primary Dx); Bleeding from varicose veins of left lower extremity 07/15/2025 Travel 07/11/2025 Patient Outreach [address] [address] Alba So NP Pre-visit Planning (HDF- scheduled with the direct line and SDOH screening completed on 01/19/2025) 07/07/2025 Results Follow-Up [address] [address] Alba So NP CBC auto differential, Complete Blood Count Manual Diff, Prothrombin Time-INR, Additional followed-up results: 7 06/06/2025 Orders Only GENERIC EXTERNAL DATA DEPARTMENT Provider, Generic External Data 06/04/2025 Orders Only GENERIC EXTERNAL DATA DEPARTMENT Provider, Generic External Data 05/30/[address] [address] Leela Gamino, NABEEL 05/02/2025 Patient Outreach [address] [address] Alba So NP Transition Of Care (Tcm) (HDF unscheduled) 05/01/2025 Patient Outreach [address] [address] Alba So NP Transition Of Care (Tcm) (HDF unscheduled) from Last 3 Months Immunizations Immunization Administration [...] Mass Index 27.89 07/19/2025 10:21 AM EDT Plan of Treatment Upcoming Encounters Date Type Department Care Team (Late st Contact Info) Description 09/25/2025 2:00 PM EST Office Visit [facility] MEDICINE [address] [place] [address] Alba So NP [address], [place] [phone] Health Maintenance Due Date Last Done Comments Lipid Panel 1990 Disability Screening 1990 Family Planning (PISQ) 2003 HPV Vaccines (1 - Male 3-dos e series) 2003 Hepatitis B Vaccines (1 of 3 - 19+ 3-dose series) 2007 Hepatitis A Vaccines (2 of 2 - Risk 2-dose series) 06/02/2018 12/03/2017 Pneumococcal Vaccine: Pediatrics (0 to 5 Years) and At-Risk Patients (6 to 49) Years (2 of 2 - PCV) 06/12/2018 06/12/2017, 04/06/2017 Depression Monitoring 04/17/2025 10/18/2024 , 10/18/2024 COVID-19 Vaccine (1 - 2023-2 5 season) 2025 Influenza Vaccine (#1) 2025 , 07/27/2020 Alcohol/Substance Use Screening 10/18/2025 10/18/2024 SDOH Screening 01/19/2026 01/19/2025 Tobacco Screening 07/19/2026 07/19/2025 DTaP/Tdap/Td Vaccines (2 - T d or [...] 2 VIEWS Routine 07/19/2025 6:24 PM EDT SLIDE REVIEW Routine 07/19/2025 6:22 PM EDT CBC WITH AUTO DIFFERENTIAL Routine 07/19/2025 6:22 PM EDT MAGNESIUM Routine 07/19/2025 6:22 PM EDT BASIC METABOLIC PANEL Routine 07/19/2025 6:22 PM EDT HEPATIC FUNCTION PANEL Routine 6:22 PM EDT COVID-19 ID NOW (CHEUNG) Routine 07/19/2025 6:22 PM EDT NT-PROBNP Routine 07/19/2025 6:22 PM EDT HIGH SENSITIVITY TROPONIN I Routine 07/19/2025 6:22 PM EDT ETHANOL Routine 07/19/2025 6:22 PM EDT AMMONIA (P) Routine 07/19/2025 6:22 PM EDT INFLUENZA A B2 ID NOW (CHEUNG) Routine 07/19/2025 6:22 PM EDT POCT INFLUENZA B (ID NOW RAPID MOLECULAR) Routine 07/18/2025 12:57 PM EDT Shortness of breath POCT INFLUENZA A (ID NOW RAPID MOLECULAR) Routine 07/18/2025 12:57 PM EDT Shortness of breath POCT RAPID STREP A Routine 07/18/2025 9: 33 AM EDT Shortness of breath POCT RAPID COVID ANTIGEN Routine 07/18/2025 9:33 AM EDT Shortness of breath CT HEAD WO CONTRAST Routine 06/08/2025 1 0:[address] ABDOMEN PELVIS WO CONTRAST Routine 06/07/2025 10:44 AM EDT VASC US LOWER EXTREMITY VENOUS DUPLEX BILATERAL Routine 06/07/2025 8:50 AM EDT XR TIBIA FIBULA 2 VIEWS LEFT Routine 06/07/2025 7:15 AM EDT CTA CHEST PE PROTOCAL Routine 06/06/2025 11:03 PM EDT URINALYSIS, COMPLETE, WITH REFLEX TO CULTURE Routine 06/06/2025 9:11 PM EDT DRUG MONITOR, PANEL 1, SCREEN, URINE Routine 06/06/2025 9:11 PM EDT HIGH SENSITIVITY TROPONIN I Routine 06/06/2025 3:18 PM EDT MAGNESIUM Routine 06/06/2025 3:18 PM EDT COMPREHENSIVE METABOLIC PANEL Routine 06/06/2025 3:18 PM EDT D DIMER HIGH SENSITIVITY Routine 06/06/2025 3:18 PM EDT PROTHROMBIN TIME-INR Routine 06/06/2025 3:18 PM EDT CBC WITH AUTO DIFFERENTIAL Routine 06/06/2025 3:18 PM EDT GLUCOSE, WHOLE BLOOD Routine 06/04/2025 7:02 PM EDT DRUG MONITOR, PANEL 1, SCREEN, URINE Routine 06/04/2025 6:15 PM EDT URINALYSIS, COMPLETE, WITH REFLEX TO CULTURE Routine 06/04/2025 6:15 PM EDT GLUCOSE, WHOLE BLOOD Routine 06/04/2025 5:34 PM EDT HIGH SENSITIVITY TROPONIN I Routine 06/04/2025 4:39 PM EDT ETHANOL Routine 06/04/2025 4:39 PM EDT MAGNESIUM Routine 06/04/2025 4:39 PM EDT COMPREHENSIVE METABOLIC PANEL Routine 06/04/2025 4:39 PM EDT CREATINE KINASE, TOTAL Routine 4:39 PM EDT D DIMER HIGH SENSITIVITY Routine 06/04/2025 4:39 PM EDT CBC WITH AUTO DIFFERENTIAL Routine 06/04/2025 4:39 PM EDT BLOOD CULTURE (SECOND) Routine 4:39 PM EDT LOWER EXTREMITY VENOUS DUPLEX LEFT Routine 06/04/2025 4:06 PM EDT LACTIC ACID Routine 06/04/2025 3:15 PM EDT BLOOD CULTURE (FIRST) Routine 06/04/2025 3:15 PM EDT HIV 1/2 ANTIGEN/ANTIBODY, FOURTH GENERATION W/RFL Routine 04/08/2024 11:52 AM EDT Hepatitis C virus infection without hepatic coma, unspecified chronicity from Last 3 Months or Most Recently Relevant to Health Maintenance Results * XR Chest 2 Views (07/19/2025 6:24 PM EDT) Anatomical Region Laterality Modality Chest Radiographic Ladan ging 07/19/2025 6:24 PM EDT Narrative 07/19/2025 6:26 PM EDT [address] [address] XRay Report Signed Patient: Norberto Marquez MR#: [id number] : 1990 Acct:[id number] Age/Sex: 34 / M ADM Date: 07/19/25 Loc: HO.ED Attending Dr: Ordering Physician: Alana Carreon Date of Service: 07/19/25 Procedure(s): XR chest 2V Accession Number(s): [id number] cc: [facility]; Alana Carreon Reason for Exam: SOB CLINICAL [...] in OV> 07/19/251824 DD/ 23 TD/TT: 07/19/251823 Business Development Associate: Procedure Note Donotuseinterpreter, Image - 07/19/[address] [address] XRay Report Signed Patient: Marcelo MarquezR#: [id number] : 1990Acct:[id number] Age/Sex: 34 / MADM Date: 07/19/25 Loc: HO.ED Attending Dr: Ordering Physician: Alana Carreon Date of Service: 07/19/25 Procedure(s): XR chest 2V Accession Number(s): [id number] cc: [facility]; Alana Carreon Reason for Exam: SOB CLINICAL [...] in OV> 07/19/251824 DD/ 23 TD/TT: 07/19/251823 Business Development Associate: [facility] External Provider IMG XR PROCEDURES Final Result * Influenza A B2 ID NOW (Cheung) (07/19/2025 6:22 PM EDT) IDNOW SERIAL# [id number] [facility] Influenza A Negative Negative [facility] Influenza B2 Negative Negative [facility] Influenza A B2 Note See Note [facility] Comment:The Cheung ID NOW In [...] PM EDT Generic External Data Provider LAB MICROBIOLOGY - GENERAL ORDERABLES Final Result [facility] [address] [place] [phone] * Slide Review (07/19/2025 6:22 PM EDT) Slide Review VERIFIED [facility] 07/19/2025 6:22 PM EDT 07/19/2025 6:27 PM EDT us Generic External Data Provider LAB BLOOD ORDERAB LES Final Result [facility] [address] [place] [phone] * COVID-19 ID NOW (Sensopia) (07/19/2025 6:22 PM EDT) IDNOW SERIAL# [id number] [facility] COVID-19 TEST Negative Negative [facility] COVID-19 NOTE See Note [facility] Comment: Results are for the identification of SARS-CoV2 RNA. TheSARS-CoV2 RNA is generally detectable in respiratory samplesduring the acute phase of infection. Positive results areindicative of the presence of SARS-CoV-2 RNA; clinicalcorrelation with patient history and other diagnosticinformation is necessary to determine patient infectionstatus. Positive results do not rule out bacterial infectionor co- infection with other viruses.Testing facilities within the [facility] and [facility] hospitalies are required to report [...] EDT us Generic External Data Provider LAB MOLECULAR [place] GNOSTICS ORDERABLES Final Result Performing Organization Address [facility] de Phone Number [facility] [address] [place] [phone] * High Sensitivity Troponin I (07/19/2025 6:22 PM EDT) Only the most recent of3 resultswithin the time period is included. [facility] TROPONIN I HIGH SENSITIVITY 3.3 <3.5 - 35.0 ng/L [facility] Comment:The Cheung high sens itivity Troponin-I results should beused in conjunction with other diagnostic information suchas ECG, clinical observations and information, and patientsymptoms to aid in the diagnosis of [place]. 07/19/2025 6:22 PM EDT 07/19/2025 6:27 PM EDT Generic External Data Provider LAB BLOOD ORDERAB LES Final Result Performing Organization Address [facility] de Phone Number [facility] [address] [place] [phone] * Ethanol (07/19/2025 6:22 PM EDT) Only the most recent of2 resultswithin the time period is included. Pathologist [facility] ETHANOL (MG/DL) IN SER/PLAS <10 mg/dL [facility] Comment:Serum/plasma ethanol results are to be used formedical/treatment purposes only. 07/19/2025 6:22 PM EDT 07/19/2025 6:27 PM EDT Generic External Data Provider LAB BLOOD ORDERAB LES Final Result Performing Organization Address [facility] de Phone Number [facility] [address] [place] [phone] * NT-proBNP (07/19/2025 6:22 PM EDT) Pathologist [facility] NT-proBNP 251.0 <300 pg/mL [facility] Comment:Reference Range:Age Group (years) NT-proBNP (pg/ml) InterpretationAll <300 Negative: HF unlikelyFor patients presenting to the ED with clinical suspicion ofnew onset or worsening HF, see below:18 to <50 >299.9 to <450.0 [place]: [id number] to 75 >299.9 to <900.0 other causes of>75 >299.9 to <1800.0 NT-proBNP [id number] to <50 >449.9 Positive: HF [id number] >899.9>75 >1799.9Note: Elevated NT-proBNP levels should be interpreted inthe context of other clinical information. 07/19/2025 6:22 PM EDT 07/19/2025 6:27 PM EDT us Generic External Data Provider LAB BLOOD ORDERAB LES Final Result [facility] [address] [place] [phone] * (ABNORMAL) CBC auto differential (07/19/2025 6:22 PM EDT) Only the most recent of3 resultswithin the time period is included. White Blood Count 5.8 4.8 - 10.8 X10*3/uL [facility] Red Blood Count 4.71 4.60 - 5.80 X10*6/uL [facility] Hemoglobin 10.8(L) 14.0 - 18.0 g/dl [facility] Hematocrit 36.1(L) 42.0 - 52.0 % [facility] Mean Corpuscular Volume 76.6(L) 80.0 - 98.0 fL [facility] Mean Corpuscular Hemoglobin 22.9(L) 27.0 - 33.0 pg [facility] Mean Corpuscular HGB Conc 29.9(L) 31.0 - 36.0 g/dl [facility] Red Cell Distribution Width 28.6(H) 11.0 - 16.0 % [facility] Platelet Count 176 160 - 400 X10*3/uL [facility] Mean Platelet Volume 10.2 9.4 - 12.4 fL [facility] Neutrophils Percent Auto 50.0 45 - 73 % [facility] Imm Gran Pct Auto 1.2(H) 0.0 - 0.4 % [facility] Lymphocytes Percent Auto 26.6 20 - 40 % [facility] Monocytes Percent Auto 17.4(H) 2 - 11 % [facility] Eosinophils Percent Auto 4.1(H) 0 - 4 % [facility] Basophils Percent Auto 0.7 0 - 2 % [facility] NRBC Pct Auto 0.0 0.0 - 0.2 /100WBC [facility] Neutrophils Absolute Auto 2.9 2.0 - 8.3 x10*3/uL [facility] Imm Gran Abs Auto 0.07(H) 0.00 - 0.03 X10*3/uL [facility] Lymphocytes Absolute Auto 1.5 1.2 - 4.9 X10*3/uL [facility] Monocytes Absolute Auto 1.0 0.1 - 1.2 X10*3/uL [facility] Eosinophils Absolute Auto 0.2 0.0 - 0.4 X10*3/uL [facility] Basophils Absolute Auto 0.0 0.0 - 0.2 X10*3/uL [facility] NRBC Abs Auto 0.000 0.0 - 0.012 X10*3/uL [facility] 07/19/2025 6:22 PM EDT 07/19/2025 6:27 PM EDT us Generic External Data Provider LAB BLOOD ORDERAB LES Edited Result - Final [facility] [address] [place] [phone] * Magnesium (07/19/2025 6:22 PM EDT) Only the most recent of3 resultswithin the time period is included. Magnesium 1.6 1.6 - 2.6 mg/dL [facility] 07/19/2025 6:22 PM EDT 07/19/2025 6:27 PM EDT us Generic External Data Provider LAB BLOOD ORDERAB LES Final Result Performing Organization Address [facility] Co de Phone Number [facility] [address] [place] [phone] * (ABNORMAL) Ammonia, Plasma (07/19/2025 6:22 PM EDT) Ammonia (P) 59(H) 13 - 55 umol/L [facility] 07/19/2025 6:22 PM EDT 07/19/2025 6:27 PM EDT us Generic External Data Provider LAB BLOOD ORDERAB LES Final Result Performing Organization Address [facility] Phone Number [facility] [address] [place] [phone] * (ABNORMAL) Hepatic Function Panel (07/19/2025 6:22 PM EDT) Bilirubin, Total 0.9 0.0 - 1.0 mg/dL [facility] Bilirubin, Direct 0.5 0.0 - 0.5 mg/dL [facility] Aspartate Amino Transferase 94(H) 5 - 37 U/L [facility] Alanine Aminotransferase 81(H) 0 - 40 U/L [facility] Total Protein 7.1 6.5 - 8.0 g/dL [facility] Albumin Level 4.0 3.5 - 5.0 g/dL [facility] Alkaline Phosphatase 273(H) 39 - 117 U/L [facility] 07/19/2025 6:22 PM EDT 07/19/2025 6:27 PM EDT Generic External Data Provider LAB BLOOD ORDERAB LES Final Result Performing Organization Address [facility] Co de Phone Number [facility] [address] [place] [phone] * (ABNORMAL) Basic Metabolic Panel (07/19/2025 6:22 PM EDT) Sodium 138 135 - 145 mmol/L [facility] Potassium 4.5 3.3 - 5.1 mmol/L [facility] Chloride 109(H) 96 - 108 mmol/L [facility] Carbon Dioxide 21(L) 22 - 29 mmol/L [facility] Anion Gap 13 12 - 20 [facility] Urea Nitrogen (BUN) 21(H) 9 - 16 mg/dL [facility] Creatinine, Serum 0.79 0.5 - 1.4 mg/dL [facility] Creatinine Clr Calc Pharmacy 126.2 [facility] Comment:eGFR (calculated fro m the MDRD study equation) and eCrCl(calculated from the Cockcroft-Gault equation) are based ondifferent parameters and may not yield comparable results.If eCrCl result is absurd, please check patient'sheight/weight. Estimated Glomerular Filt Rate >60 [facility] Comment:Chronic Kidney Disea se: Estimated GFR < 60 mL/min/1.79m9[place] Kidney Disease: Estimated GFR < 15 mL/min/1.73m2 Glucose 98 60 - 115 mg/dL [facility] Calcium 9.6 8.4 - 10.2 mg/dL [facility] 07/19/2025 6:22 PM EDT 07/19/2025 6:27 PM EDT us Generic External Data Provider LAB BLOOD ORDERAB LES Final Result [facility] [address] [place] [phone] * Influenza B (ID NOW Rapid Molecular) (07/18/2025 12:57 PM EDT) Influenza B Negative Negative, Indeterminate [facility] Swab 07/18/2025 12:5 7 PM EDT us Nighat Galloway MD POINT OF CARE TEST ENTER/E DIT ORDERABLES Final Result Performing Organization Address City/[facility]/ZIP Co de Phone Number [facility] [address] [place] [phone] * Influenza A (ID NOW Rapid Molecular) (07/18/2025 12:57 PM EDT) [facility] Influenza A Negative Negative, Indeterminate [facility] Swab 07/18/2025 12:5 7 PM EDT Nighat Galloway MD POINT OF CARE TEST ENTER/E DIT ORDERABLES Final Result Performing Organization Address [facility] Co de Phone Number [facility] [address] [place] [phone] * POCT Rapid COVID Ag (07/18/2025 9:33 AM EDT) [facility] Rapid COVID Ag Negative Swab 07/18/2025 9:33 AM EDT Nighat Galloway MD POINT OF CARE TEST ENTER/E DIT ORDERABLES Final Result * POCT rapid strep A manually resulted (07/18/2025 9:33 AM EDT) [facility] Rapid Strep A Screen Negative Negative, None Detected Swab 07/18/2025 9:33 AM EDT us Nighat Galloway MD POINT OF CARE TEST ENTER/E DIT ORDERABLES Final Result * CT Head w/o Contrast (06/08/2025 10:44 AM EDT) Anatomical Region Laterality Modality Head, Neck Computed Tomogra phy 06/08/2025 10:4 4 AM EDT Narrative 06/08/2025 12:17 PM EDT [place] [address] [address] Scan Report Signed Patient: Norberto Marquez MR#: [id number] : 1990 Acct:[id number] Age/Sex: 34 / M ADM Date: 06/06/25 Loc: [facility] 471-[address]: David Altman MD Ordering Physician: David Altman MD Date of Service: 06/08/25 Procedure(s): CT head/brain wo IV con Accession Number(s): [id number] cc: [facility]; David Atlman MD Report Number: [id number]: Total DLP = 1453.00 mGy-cm EXAMINATION: CT HEAD WITHOUT CONTRAST CLINICAL INFORMATION: AMS - IVDU - mitral valve endocarditis COMPARISON: March 02, 2023 TECHNIQUE: Contiguous axial imaging was performed from the skull base to vertex without intravenous administration of contrast. This CT examination was performed using dose optimization techniques as appropriate, variously including the following: *Automated exposure control *Adjustment of mA and/or kV according to patient size (this includes techniques or standardized protocols for targeted exams where dose is matched to indication/reason for exam; i.e. extremities or head) *Use of iterative reconstruction technique DLP: 1457 mGY*cm FINDINGS: Motion mildly degrades the study. There is no acute ischemic change. There is no intracranial hemorrhage. There is no mass-effect or midline shift. Basal cisterns and ventricles are within normal limits for age/cerebral volume. Orbits are symmetrical and unremarkable. Paranasal sinuses and mastoid air cells are pneumatized. There are no bony abnormalities. CT/CT head/brain wo IV con IMPRESSION: No acute intracranial abnormality. Electronically signed by: Jarred Escudero MD 06/08/2025 12:15 PM EDT RP Dictated By: Jarred Escudero MD Signed By: <Electronically signed by Jarred Escudero MD in OV> 06/08/25 1215 DD/ 1044 TD/TT: 06/08/25 1158 Business Development Associate: Procedure Note Donotuseinterpreter, Image - 06/08/[address] [address] [address] Scan Report Signed Patient: Zully Marquez#: [id number] : 1990Acct:[id number] Age/Sex: 34 / MADM Date: 06/06/25 Loc: [facility] 471-[address]: David Altman MD Ordering Physician: David Altman MD Date of Service: 06/08/25 Procedure(s): CT head/brain wo IV con Accession Number(s): [id number] cc: [facility]; David Altman MD Report Number: [id number]: Total DLP = 1453.00 mGy-cm EXAMINATION: CT HEAD WITHOUT CONTRAST CLINICAL INFORMATION: AMS - IVDU - mitral valve endocarditis COMPARISON: March 02, 2023 TECHNIQUE: Contiguous axial imaging was performed from the skull base to vertex without intravenous administration of contrast. This CT examination was performed using dose optimization techniques as appropriate, variously including the following: *Automated exposure control *Adjustment of mA and/or kV according to patient size (this includes techniques or standardized protocols for targeted exams where dose is matched to indication/reason for exam; i.e. extremities or head) *Use of iterative reconstruction technique DLP: 1457 mGY*cm FINDINGS: Motion mildly degrades the study. There is no acute ischemic change. There is no intracranial hemorrhage. There is no mass-effect or midline shift. Basal cisterns and ventricles are within normal limits for age/cerebral volume. Orbits are symmetrical and unremarkable. Paranasal sinuses and mastoid air cells are pneumatized. There are no bony abnormalities. CT/CT head/brain wo IV con IMPRESSION: No acute intracranial abnormality. Electronically signed by: Jarred Escudero MD 06/08/2025 12:15 PM EDT Dictated By: Jarred Escudero MD Signed By: <Electronically signed by Jarred Escudero MD in OV> 06/08/25 1215 DD/ 1044 TD/TT: 06/08/25 1158 Business Development Associate: us [facility] External Provider IMG CT PROCEDURES Final Result * CT Abdomen Pelvis w/o Contrast (06/07/2025 10:44 AM EDT) Anatomical Region Laterality Modality Body, Pelvis, Abdomen Computed T omography 06/07/2025 10:4 4 AM EDT Narrative 06/08/2025 12:28 PM EDT [place] [address] [address] Scan Report Signed Patient: Norberto Marquez MR#: [id number] : 1990 Acct:[id number] Age/Sex: 34 / M ADM Date: 06/06/25 Loc: [facility] 471-[address]: David Altman MD Ordering Physician: Allison Mejía Date of Service: 06/07/25 Procedure(s): CT abdomen pelvis wo IV con Accession Number(s): [id number] cc: Allison MejíaADRIEL; [facility] Report Number: [id number]: Total DLP = 1453.00 mGy-cm EXAMINATION: CT ABDOMEN AND PELVIS WITHOUT CONTRAST CLINICAL INFORMATION: ascites, hepatitis C COMPARISON: February 07, 2025 TECHNIQUE: Multidetector volumetric imaging was performed from [...] head) *Use of iterative reconstruction technique DLP: 783 mGY*cm FINDINGS: LUNG BASES: The visualized lung bases are unremarkable. LIVER, GALLBLADDER, AND BILIARY TREE: There is subtle nodularity of the liver surface. The liver size is enlarged. There is recannulation of the umbilical vein. There is a small to medium amount of ascites, improved from the prior. Gallbladder is partially decompressed. No biliary ductal dilation is evident. PANCREAS: Unremarkable. SPLEEN: Unremarkable. ADRENAL GLANDS: Unremarkable. KIDNEYS AND URETERS: The kidneys are normal in size, shape, and attenuation. No hydronephrosis, hydroureter, or calculi seen. No perinephric stranding. BLADDER: Unremarkable. GASTROINTESTINAL TRACT: Moderate stool and gas is present throughout the colon. The appendix is not visualized. ABDOMINAL WALL: Intact. LYMPH NODES: There are shotty periaortic and inguinal lymph nodes. VASCULAR: Mild multifocal atherosclerotic calcifications are present. PELVIC VISCERA: Unremarkable. OSSEOUS STRUCTURES: Unremarkable. CT/CT abdomen pelvis wo IV con IMPRESSION: There is evidence of portal hypertension. There is hepatomegaly with recannulization of the umbilical vein and a finely nodular liver surface suggesting cirrhosis and mild to moderate ascites which is improved since the prior. Constipation. Fleischner guidelines were followed. Electronically signed by: Jarred Escudero MD 06/08/2025 12:24 PM EDT RP Dictated By: Jarred Escudero MD Signed By: <Electronically signed by Jarred Escudero MD in OV> 06/08/25 1224 DD/ 1044 TD/TT: 06/08/25 1158 Business Development Associate: Procedure Note Donotuseinterpreter, Image - 06/08/[address] [place] [address] [address] Scan Report Signed Patient: Zully Marquez#: [id number] : 1990Acct:[id number] Age/Sex: 34 / MADM Date: 06/06/25 Loc: [facility] 471-[address]: David Altman MD [facility]ing Phys[facility] Date of Service: 06/07/25 Procedure(s): CT abdomen pelvis wo IV con Accession Number(s): [id number] cc: Allison Mejía [facility]; [facility] Report Number: [id number]: Total DLP = 1453.00 mGy-cm EXAMINATION: CT ABDOMEN AND PELVIS WITHOUT CONTRAST CLINICAL INFORMATION: ascites, hepatitis C COMPARISON: February 07, 2025 TECHNIQUE: Multidetector volumetric imaging was performed from [...] head) *Use of iterative reconstruction technique DLP: 783 mGY*cm FINDINGS: LUNG BASES: The visualized lung bases are unremarkable. LIVER, GALLBLADDER, AND BILIARY TREE: There is subtle nodularity of the liver surface. The liver size is enlarged. There is recannulation of the umbilical vein. There is a small to medium amount of ascites, improved from the prior. Gallbladder is partially decompressed. No biliary ductal dilation is evident. PANCREAS: Unremarkable. SPLEEN: Unremarkable. ADRENAL GLANDS: Unremarkable. KIDNEYS AND URETERS: The kidneys are normal in size, shape, and attenuation. No hydronephrosis, hydroureter, or calculi seen. No perinephric stranding. BLADDER: Unremarkable. GASTROINTESTINAL TRACT: Moderate stool and gas is present throughout the colon. The appendix is not visualized. ABDOMINAL WALL: Intact. LYMPH NODES: There are shotty periaortic and inguinal lymph nodes. VASCULAR: Mild multifocal atherosclerotic calcifications are present. PELVIC VISCERA: Unremarkable. OSSEOUS STRUCTURES: Unremarkable. CT/CT abdomen pelvis wo IV con IMPRESSION: There is evidence of portal hypertension. There is hepatomegaly with recannulization of the umbilical vein and a finely nodular liver surface suggesting cirrhosis and mild to moderate ascites which is improved since the prior. Constipation. Fleischner guidelines were followed. Electronically signed by: Jarred Escudero MD 06/08/2025 12:24 PM EDT Dictated By: Jarred Escudero MD Signed By: <Electronically signed by Jarred Escudero MD in OV> 06/08/25 1224 DD/ 1044 TD/TT: 06/08/25 1158 Business Development Associate: [facility] External Provider IMG CT PROCEDURES Final Result * VASC US Lower Extremity Venous Duplex Bilateral (06/07/2025 8:50 AM EDT) 06/07/2025 8:50 AM EDT Narrative [facility] - 06/07/2025 9:16 AM EDT [address] [address] Ultrasound Report Signed Patient: Norberto Marquez MR#: [id number] : 1990 Acct:[id number] Age/Sex: 34 / M ADM Date: 06/06/25 Loc: [facility]: David Altman MD [facility]ing Phys[facility]: [place] [facility] Date of Service: 06/07/25 Procedure(s): US venous duplex LE BI Accession Number(s): [id number] cc: [facility]; [facility] EXAMINATION: US TRIPLEX LOWER EXTREMITY, BILATERAL CLINICAL INFORMATION: Swelling and warmth left greater than right lower extremities. Rule out DVT. COMPARISON: None available. TECHNIQUE: Color-flow triplex imaging with spectral analysis and compression Doppler were performed on the bilateral lower extremities. FINDINGS: Respiratory variation, normal compression and augmented flow are noted throughout the bilateral lower extremities. The visualized common femoral vein, superficial femoral vein, profunda femoral vein, popliteal vein and midcalf peroneal and posterior tibial venous segments show no evidence of deep venous thrombosis bilaterally. There is no Mauricio's cyst. Reactive lymph nodes noted in both groin regions. US/US venous duplex LE BI IMPRESSION: No evidence of deep venous thrombosis involving the bilateral lower extremities. Electronically signed by: Cory Krishnan MD 06/07/2025 09:13 AM EDT Dictated By: Cory Krishnan MD Signed By: <Electronically signed by Cory Krishnan MD in OV> 06/07/25 0913 DD/ 0850 TD/TT: 06/07/25 09 Business Development Associate: Procedure Note Donotuseinterpreter, Image - 06/07/[address] [address] Ultrasound Report Signed Patient: Marcelo MarquezR#: [id number] : 1990Acct:[id number] Age/Sex: 34 / MADM Date: 06/06/25 Loc: [facility]: David Altman MD Ordering Physician: Allison Mejía Date of Service: 06/07/25 Procedure(s): US venous duplex LE BI Accession Number(s): [id number] cc: [place] [facility]; [facility] EXAMINATION: US TRIPLEX LOWER EXTREMITY, BILATERAL CLINICAL INFORMATION: Swelling and warmth left greater than right lower extremities. Rule out DVT. COMPARISON: None available. TECHNIQUE: Color-flow triplex imaging with spectral analysis and compression Doppler were performed on the bilateral lower extremities. FINDINGS: Respiratory variation, normal compression and augmented flow are noted throughout the bilateral lower extremities. The visualized common femoral vein, superficial femoral vein, profunda femoral vein, popliteal vein and midcalf peroneal and posterior tibial venous segments show no evidence of deep venous thrombosis bilaterally. There is no Mauricoi's cyst. Reactive lymph nodes noted in both groin regions. US/US venous duplex LE BI IMPRESSION: No evidence of deep venous thrombosis involving the bilateral lower extremities. Electronically signed by: Cory Krishnan MD 06/07/2025 09:13 AM EDT Dictated By: Cory Krishnan MD Signed By: <Electronically signed by Cory Krishnan MD in OV> 06/07/25 0913 DD/ 0850 TD/TT: 06/07/25 0900 Business Development Associate: [facility] External Provider CV VASC ULAR PROCEDURES Final Result [facility] [address] [place] [phone] * XR Tibia Fibula 2 Views Left (06/07/2025 7:15 AM EDT) Anatomical Region Laterality Modality Lower Extremities, Lower Leg Left Rad iographic Imaging 06/07/2025 7:15 AM EDT Narrative 06/07/2025 8:29 AM EDT [address] [address] XRay Report Signed Patient: Norberto Marquez MR#: [id number] : 1990 Acct:[id number] Age/Sex: 34 / M ADM Date: 06/06/25 [facility] [address]: David Altman MD Ordering Physician: Allison Mejía Date of Service: 06/07/25 Procedure(s): XR tibia fibula LT 2V Accession Number(s): [id number] [facility]; [facility] EXAMINATION: XR TIBIA AND FIBULA, LEFT CLINICAL INFORMATION: Pain and swelling. COMPARISON: 04/04/2025. TECHNIQUE: AP and lateral views of the left tibia and fibula were obtained. FINDINGS: The bones and soft tissues are normal. No fracture. No osseous lesions. Imaged joints appear normal. XR/XR tibia fibula LT 2V IMPRESSION: Normal left tibia and fibula. Electronically signed by: Cory Krishnan MD 06/07/2025 08:26 AM EDT Dictated By: Cory Krishnan MD Signed By: <Electronically signed by Cory Krishnan MD in OV> 06/07/25 0826 DD/ 0715 TD/TT: 06/07/25 0732 Business Development Associate: Procedure Note Donotuseinterpreter, Image - 06/07/[address] [address] XRay Report Signed Patient: Marcelo MarquezR#: [id number] : 1990Acct:[id number] Age/Sex: 34 / MADM Date: 06/06/25 [facility]: David Altman MD Ordering Physician: Allison Mejía Date of Service: 06/07/25 Procedure(s): XR tibia fibula LT 2V Accession Number(s): [id number] cc: Allison [facility]jía [facility] EXAMINATION: XR TIBIA AND FIBULA, LEFT CLINICAL INFORMATION: Pain and swelling. COMPARISON: 04/04/2025. TECHNIQUE: AP and lateral views of the left tibia and fibula were obtained. FINDINGS: The bones and soft tissues are normal. No fracture. No osseous lesions. Imaged joints appear normal. XR/XR tibia fibula LT 2V IMPRESSION: Normal left tibia and fibula. Electronically signed by: Cory Krishnan MD 06/07/2025 08:26 AM EDT RP Dictated By: Cory Krishnan MD Signed By: <Electronically signed by Cory Krishnan MD in OV> 06/07/25825 DD/ 0715 TD/TT: 06/07/25 0732 Business Development Associate: [facility] External Provider IMG XR PROCEDURES Final Result * CTA Chest PE Protocal (06/06/2025 11:03 PM EDT) Anatomical Region Laterality Modality Body, Chest Computed Tomogra phy 06/06/2025 11:0 3 PM EDT Narrative 06/06/2025 11:05 PM EDT [place] [address] CT Scan Report Signed Patient: Norberto Marquez MR#: [id number] : 1990 Acct:[id number] Age/Sex: 34 / M ADM Date: 06/06/25 Loc: .ED Attending Dr: Ordering Physician: Yanet Jang DO Date of Service: 06/06/25 Procedure(s): CT angio chest PE protocol Accession Number(s): [id number] cc: Yanet Jang DO; [facility] Report Number: [id number]: Total DLP = 421.00 mGy-cm CLINICAL HISTORY: elevated d-dimer, hx IVDA CT angiography chest with contrast. 3D Postprocessing. Comparison: CT/NV/SR - CT ANGIO CHEST PE PROTOCOL - 12/25/2024 02:24 PM EDT Findings: The heart size is normal. RV/LV ratio is normal. Unremarkable thoracic aorta and great vessels. No aneurysm. No acute pulmonary embolus. The visualized thyroid and mediastinum are unremarkable. No consolidation or effusion. Small perihepatic free fluid. The bones are intact. IMPRESSION: 1. No pulmonary emboli. No acute aortic syndrome. Lungs are grossly clear. 2. Small perihepatic free fluid, partially imaged, correlate with dedicated abdominal imaging. This document has been electronically signed by: Dennis Arce MD on 06/06/2025 23:03:49 Dictated By: Dennis Arce MD Signed By: <Electronically signed by Dennis Arce MD in OV> 06/06/252303 DD/ 02 TD/TT: 06/06/252302 Business Development Associate: Procedure Note Donotuseinterpreter, Image - 06/06/[address] [place] [address] [address] Scan Report Signed Patient: Zully Marquez#: [id number] : 1990Acct:[id number] Age/Sex: 34 / MADM Date: 06/06/25 Loc: .ED Attending Dr: Ordering Physician: Yanet Jang DO Date of Service: 06/06/25 Procedure(s): CT angio chest PE protocol Accession Number(s): [id number] cc: Yanet Jang DO; [facility] Report Number: [id number]: Total DLP = 421.00 mGy-cm CLINICAL HISTORY: elevated d-dimer, hx IVDA CT angiography chest with contrast. 3D Postprocessing. Comparison: CT/NV/SR - CT ANGIO CHEST PE PROTOCOL - 12/25/2024 02:24 PM EDT Findings: The heart size is normal. RV/LV ratio is normal. Unremarkable thoracic aorta and great vessels. No aneurysm. No acute pulmonary embolus. The visualized thyroid and mediastinum are unremarkable. No consolidation or effusion. Small perihepatic free fluid. The bones are intact. IMPRESSION: 1. No pulmonary emboli. No acute aortic syndrome. Lungs are grossly clear. 2. Small perihepatic free fluid, partially imaged, correlate with dedicated abdominal imaging. This document has been electronically signed by: Dennis Arce MD on 06/06/2025 23:03:49 Dictated By: Dennis Arce MD Signed By: <Electronically signed by Dennis Arce MD in OV> 06/06/252303 DD/ 02 TD/TT: 06/06/252302 Business Development Associate: [facility] External Provider IMG CT PROCEDURES Edited Result - Final * (ABNORMAL) Urinalysis, Complete, with Reflex to Culture (06/06/2025 9:11 PM EDT) Only the most recent of2 resultswithin the time period is included. Color Urine Yellow [facility] Appearance Urine Clear [facility] PH 6.0 5.0 - 9.0 [facility] Glucose Urine UA Negative Negative mg/dL [facility] Urine Blood Trace(A) Negative [facility] Specific [place] - Urine 1.015 1.005 - 1.025 [facility] Urine Protein Negative Neg-Trace mg/dL [facility] Urine Ketones Negative Negative mg/dL [facility] Nitrite Urine Negative Negative [facility] Leukocyte Esterase Urine Negative Negative [facility] RBC Urine 6-10(A) 0 - 2 /HPF [facility] Urine WBC 0-5 0 - 5 /HPF [facility] Urine Squamous Epithelial Cell 0-2 0 - 2 /HPF [facility] Urine Bacteria None Seen None Seen [facility] Hyaline Casts, Urine 0-2 0 - 2 /LPF [facility] 06/06/2025 9:11 PM EDT 06/06/2025 9:15 PM EDT Narrative [facility] - 06/06/2025 10:06 PM EDT [id number], [employer] Generic External Data Provider LAB URINE ORDERAB LES Final Result [facility] [address] [place] [phone] * (ABNORMAL) Drug Monitoring, Panel 1, Screen, Urine (06/06/2025 9:11 PM EDT) Only the most recent of2 resultswithin the time period is included. Opiate Screen Urine Not Detected Not Detect [facility] Comment:Opiate cut-off is 30 0 ng/mL.Positive results are unconfirmed and should not be used fornon-medical purposes. Barbiturates, Urine Not Detected Not Detect [facility] Comment:Barbiturate cut-off is 200 ng/mL.Positive results are unconfirmed and should not be used fornon-medical purposes. Phencyclidine Screen Urine Not Detected Not Detect [facility] Comment:Phencyclidine cut-of f is 25 ng/mL.Positive results are unconfirmed and should not be used fornon-medical purposes. Amphetamine Screen Urine Not Detected Not Detect [facility] Comment:Amphetamine cut-off is 1000 ng/mL.Positive results are unconfirmed and should not be used fornon-medical purposes. Benzodiazepines Screen Urine Not Detected Not Detect [facility] Comment:Benzodiazepine cut-o ff is 200 ng/mL.Positive results are unconfirmed and should not be used fornon-medical purposes. Cocaine Screen Urine POSITIVE(A) Not Detect [facility] Comment:Cocaine cut-off is 3 00 ng/mL.Positive results are unconfirmed and should not be used fornon-medical purposes. Cannabinoid Screen Urine Not Detected Not Detect [facility] Comment:Cannabinoid cut-off is 50 ng/mL.Positive results are unconfirmed and should not be used fornon-medical purposes. Methadone Screen, Urine Positive(A) Not Detect ng/mL [facility] Comment:Methadone cut-off is 300 ng/mL.Positive results are unconfirmed and should not be used fornon-medical purposes. FENTANYL URINE POSITIVE(A) Not Detect [facility] Comment:Fentanyl cut-off is 1 ng/mL.Positive results are unconfirmed and should not be used fornon-medical purposes. Oxycodone Urine Screen Not Detected Not Detect ng/mL [facility] Comment:Oxycodone cut-off is 100 ng/mL.Positive results are unconfirmed and should not be used fornon-medical purposes. Buprenorphine Screen Not Detected Not Detect ng/mL [facility] Comment:Buprenorphine cut-of f is 5 ng/mL.Positive results are unconfirmed and should not be used fornon-medical purposes. 06/06/2025 9:11 PM EDT 06/06/2025 9:15 PM EDT Generic External Data Provider LAB URINE ORDERAB LES Final Result Performing Organization Address [facility] de Phone Number [facility] [address] [place] [phone] * D Dimer High Sensitivity (06/06/2025 3:18 PM EDT) Only the most recent of2 resultswithin the time period is included. [facility] D Dimer High Sensitivity 1,296 NG/ML [facility] Comment:D-DIMER HS REFERENCE RANGENote: Our assay reports D-Dimer Units (D- DU).The cut-off value for venous thromboembolic (VTE) disease is230 ng/mL. This value has a very high negative predictivevalue when the patient has a low to moderate clinicalprobability of VTE.The upper limit of normal is 243 ng/mL. 06/06/2025 3:18 PM EDT 06/06/2025 3:25 PM EDT Generic External Data Provider LAB BLOOD ORDERAB LES Final Result Performing Organization Address [facility] de Phone Number [facility] [address] [place] [phone] * (ABNORMAL) Prothrombin Time-INR (06/06/2025 3:18 PM EDT) Pathologist [facility] Prothrombin Time 25.0(H) 10.9 - 12.4 SEC [facility] INTERNATIONAL NORM RATIO 2.2(H) 0.9 - 1.1 [facility] Comment:INTERNATIONAL NORMAL IZED RATIO (INR) REFERENCE RANGES Reference RangeFor patients not on anticoagulant therapy: 0.9 - 1.1INR ranges for oral anticoagulanttherapy:For prevention and treatment of venous thrombosis and pulmonary embolism: 2.0 - 3.0For acute myocardial infarction with aspirin therapy: 2.0 - 3.0For acute myocardial infarction without aspirin therapy: 3.0 - 4.0For patients with mechanical prosthetic heart valves: 2.5 - 3.5 06/06/2025 3:18 PM EDT 06/06/2025 3:25 PM EDT us Generic External Data Provider LAB BLOOD ORDERAB LES Final Result [facility] [address] [place] [phone] * (ABNORMAL) Comprehensive Metabolic Panel (06/06/2025 3:18 PM EDT) Only the most recent of2 resultswithin the time period is included. Sodium 141 135 - 145 mmol/L [facility] Potassium 3.5 3.3 - 5.1 mmol/L [facility] Chloride 112(H) 96 - 108 mmol/L [facility] Carbon Dioxide 20(L) 22 - 29 mmol/L [facility] Anion Gap 13 12 - 20 [facility] Urea Nitrogen (BUN) 21(H) 9 - 16 mg/dL [facility] Creatinine, Serum 0.79 0.5 - 1.4 mg/dL [facility] Creatinine Clr Calc Pharmacy 116.6 [facility] Comment:eGFR (calculated fro m the MDRD study equation) and eCrCl(calculated from the Cockcroft-Gault equation) are based ondifferent parameters and may not yield comparable results.If eCrCl result is absurd, please check patient'sheight/weight. Estimated Glomerular Filt Rate >60 [facility] Comment:Chronic Kidney Disea se: Estimated GFR < 60 mL/min/[id number] Kidney Disease: Estimated GFR < 15 mL/min/1.73m2 Glucose 89 60 - 115 mg/dL [facility] Calcium 8.3(L) 8.4 - 10.2 mg/dL [facility] Bilirubin, Total 1.0 0.0 - 1.0 mg/dL [facility] Aspartate Amino Transferase 41(H) 5 - 37 U/L [facility] Alanine Aminotransferase 25 0 - 40 U/L [facility] Total Protein 7.0 6.5 - 8.0 g/dL [facility] Albumin Level 3.4(L) 3.5 - 5.0 g/dL [facility] Alkaline Phosphatase 227(H) 39 - 117 U/L [facility] 06/06/2025 3:18 PM EDT 06/06/2025 3:25 PM EDT us Generic External Data Provider LAB BLOOD ORDERAB LES Final Result Performing Organization Address [facility]/ZIP Co de Phone Number [facility] [address] [place] [address] [phone] * Glucose, Whole Blood (06/04/2025 7:02 PM EDT) Only the most recent of2 resultswithin the time period is included. Glucose, Whole Blood 115 60 - 115 mg/dL [facility] Comment:METER #: [id number] 06/04/2025 7:02 PM EDT 06/04/2025 7:06 PM EDT us Generic External Data Provider LAB BLOOD ORDERAB LES Final Result Performing Organization Address City/[facility]/ZIP Co de Phone Number [facility] [address] [place] [phone] * Blood Culture (Second) (06/04/2025 4:39 PM EDT) Blood Venous blood specimen / Unknown 06/04/2025 4:39 PM EDT 06/04/2025 4:46 PM EDT Comment:Blood Narrative [facility] - 06/09/2025 6:47 PM EDT Blood Culture (Second) No growth after 5 days. Specimen Source: Blood us Generic External Data Provider LAB MICROBIOLOGY - GENERAL ORDERABLES Final Result Performing Organization Address City/[facility] Co de Phone Number [facility] [address] [place] [address] [phone] * (ABNORMAL) Creatine Kinase, Total (06/04/2025 4:39 PM EDT) Creatine Kinase Total 504(H) 38 - 174 U/L [facility] 06/04/2025 4:39 PM EDT 06/04/2025 4:46 PM EDT us Generic External Data Provider LAB BLOOD ORDERAB LES Final Result Performing Organization Address [facility] Co de Phone Number [facility] [address] [place] [address] [phone] * Lower Extremity Venous Duplex (06/04/2025 4:06 PM EDT) 06/04/2025 4:06 PM EDT Narrative [facility] - 06/05/2025 8:20 AM EDT [address] [address] Ultrasound Report Signed Patient: Norberto Marquez MR#: [id number] : 1990 Acct:[id number] Age/Sex: 34 / M ADM Date: 06/04/25 Loc: .ED Attending Dr: Ordering Physician: Fartun Farris Date of Service: 06/04/25 Procedure(s): US venous duplex LE LT Accession Number(s): [id number] cc: [facility]; Fartun Farris EXAMINATION: US LOWER EXTREMITY VEINS LIMITED FOLLOW UP LEFT HISTORY: LLE pain COMPARISON: Comparison is made with the prior examination dated 11/03/2024. TECHNIQUE: Duplex and color Doppler sonographic examination of the deep venous system of the left lower extremity was performed. FINDINGS: The common femoral, superficial femoral, and popliteal veins are patent demonstrating normal compressibility, spontaneous flow, and augmentation. There is a normal color and spectral Doppler waveform appearance of the visualized deep venous system above the knee. The posterior tibial and peroneal veins are patent. US/US venous duplex LE LT IMPRESSION: No evidence of acute DVT in the left lower extremity. Electronically signed by: Earl Miller MD 06/05/2025 08:17 AM EDT Dictated By: Earl Miller MD Signed By: <Electronically signed by Earl Miller MD in OV> 06/05/25816 DD/ 1606 TD/TT: 06/04/25 1612 Business Development Associate: Procedure Note Donotuseinterpreter, Image - 06/05/[address] [address] Ultrasound Report Signed Patient: Zully Marquez#: [id number] : 1990Acct:[id number] Age/Sex: 34 / MADM Date: 06/04/25 Loc: .ED Attending Dr: Ordering Physician: Fartun Farris Date of Service: 06/04/25 Procedure(s): US venous duplex LE LT Accession Number(s): [id number] cc: [facility]; Fartun Farris EXAMINATION: US LOWER EXTREMITY VEINS LIMITED FOLLOW UP LEFT HISTORY: LLE pain COMPARISON: Comparison is made with the prior examination dated 11/03/2024. TECHNIQUE: Duplex and color Doppler sonographic examination of the deep venous system of the left lower extremity was performed. FINDINGS: The common femoral, superficial femoral, and popliteal veins are patent demonstrating normal compressibility, spontaneous flow, and augmentation. There is a normal color and spectral Doppler waveform appearance of the visualized deep venous system above the knee. The posterior tibial and peroneal veins are patent. US/US venous duplex LE LT IMPRESSION: No evidence of acute DVT in the left lower extremity. Electronically signed by: Earl Miller MD 06/05/2025 08:17 AM EDT Dictated By: Earl Miller MD Signed By: <Electronically signed by Earl Miller MD in OV> 06/05/25 0817 DD/ 1606 TD/TT: 06/04/25 1612 Business Development Associate: [facility] External Provider CV VASC ULAR PROCEDURES Final Result Performing Organization Address [facility]/ZIP Co de Phone Number [facility] [address] [place] [phone] * Blood Culture (First) (06/04/2025 3:15 PM EDT) Blood Venous blood specimen / Unknown 06/04/2025 3:15 PM EDT 06/04/2025 3:26 PM EDT Comment:Blood Narrative [facility] - 06/09/2025 5:27 PM EDT Blood Culture (First) No growth after 5 days. Specimen Source: Blood Generic External Data Provider LAB MICROBIOLOGY - GENERAL ORDERABLES Final Result Performing Organization Address [facility] Co de Phone Number [facility] [address] [place] [address] [phone] * Lactic Acid (06/04/2025 3:15 PM EDT) Lactic Acid 1.4 0.5 - 2.0 mmol/L [facility] 06/04/2025 3:15 PM EDT 06/04/2025 3:26 PM EDT Generic External Data Provider LAB BLOOD ORDERAB LES Final Result Performing Organization Address [facility] Co de Phone Number [facility] [address] [place] [address] [phone] * HIV-1/2 Antigen and Antibodies, Fourth Generation, with Reflexes (04/08/2024 11:52 AM EDT) HIV AB/AG Nonreactive Nonreactive [facility] Comment:HIV-1 p24 Ag and/or HIV-1/HIV-2 Ab not detected.A test result that is nonreactive does not exclude thepossibility of exposure to or infection with HIV-1 and/orHIV-2. Nonreactive results in this assay for individualswith prior exposure to HIV-1 and/or HIV-2 may be due toantigen and antibody levels that are below the limit ofdetection of this assay.[employer] HIV Ag/Ab Combo assay result andsupplemental assay results should be interpreted inconjunction with the patient's clinical presentation,history and other laboratory results. If the results areinconsistent with clinical evidence, additional testing issuggested to confirm the result. Blood Venous blood specimen / Unknown 04/08/2024 11:52 AM EDT 04/08/2024 12:58 PM EDT us Alba So NP LAB BLOOD ORDERABLES Final Resu lt [facility] [address] [place] [phone] from Last 3 Months or Most Recently Relevant to Health Maintenance Insurance [facility] STAND[facility] Care Teams Gathering Machine Setter Relationship Specialty Start Date End Date Alba So NP [address] [place] [address] [place] [address] PCP - General Family Medicine 04/14/24
[2025-07-19 19:31] VITALS: BP 94/62; PULSE 82; RESP 12; TEMP 37; O2SAT 93
[2025-07-19 21:05] LABS: Cannabinoid Screen Urine Not Detected (Not Detect)
--- NOTE | 2025-07-19 21:26 | PC.NURSE ---
Pt here w/ c/o worsening juárez x past week. Pt also c/o feeling tired and sleeping all of the time. Pt appears tired but answers questions appropriately responding to verbal stimuli
[2025-07-19 22:08] VITALS: BP 99/66; PULSE 80; RESP 13; TEMP 36.8; O2SAT 94
[2025-07-19 22:13] VITALS: BP 99/66; PULSE 80; RESP 13; TEMP 36.8; O2SAT 94
== END 2025-07-19 22:15 | disposition home or self-care (01) ==
PROVIDERS: Physician Assistant Medical; Emergency Provider Emergency Medicine
DX: J40 Bronchitis, not specified as acute or chronic (principal); R06.02 Shortness of breath; R07.9 Chest pain, unspecified; F11.90 Opioid use, unspecified, uncomplicated; Z03.818 Encounter for observation for suspected exposure to other biological agents ruled out
CPT/HCPCS: 36415; 71046; 80048; 80076; 80307; 82140; 83735; 83880; 84484; 85025; 87502; 87635; 93005; 99283; 99284

== ENCOUNTER → 2025-07-19 17:14 | Outpatient (BNV) | payer MEDICAID, SELFPAY | PROVIDERS: Emergency Provider Emergency Medicine; Visit Provider Internal Medicine | DX: R94.31 Abnormal electrocardiogram [ECG] [EKG] (principal); R07.9 Chest pain, unspecified; R06.02 Shortness of breath | CPT/HCPCS: 93010 ==

== ENCOUNTER → 2025-07-19 17:36 | Outpatient (BNV) | payer MEDICAID, SELFPAY | PROVIDERS: Visit Provider Specialist | DX: R06.02 Shortness of breath (principal) | CPT/HCPCS: 71046 ==

== ENCOUNTER 2025-07-31 22:33 | Emergency (ER) | payer MEDICAID, SELFPAY ==
[2025-07-31 22:39] VITALS: BP 112/66; PULSE 80; RESP 16; TEMP 36.6; O2SAT 93
[2025-07-31 22:46] VITALS: BP 122/75; PULSE 83; O2SAT 94
[2025-07-31 22:47] VITALS: BP 112/66; PULSE 80; RESP 18; TEMP 36.5; O2SAT 93; BMI 28.5
--- OUTSIDE RECORDS SUMMARY | 2025-07-31 22:58 | XMS_ITS | Encounter Summary ---
Author Organization [employer] Address [address] [facility] [address] [facility] [address] [place] [address] Care Team Providers Care Core Filer Name Role Phone Nirali LottP Primary Care Provider [phone] Alba So NP Primary Care Provider [phone] Reason for Visit * Reason Onset Date Comments Referral 10/16/2023 Encounter Details Date Type Department Care Team ([facility] st Contact Info) Description 10/16/2023 Telephone [facility] MED[facility]INE [address] [place] [address] Nirali Lott FNP [address] [place] [address] Referral Social History Tobacco Use Types Packs/Day [...] - 10/16/2023 10:22 AM EST Tc from [facility] never received referral. documented in this encounter Plan of Treatment Upcoming Encounters Date Type Department Care Team (Late st Contact Info) Description 09/25/2025 2:00 PM EST Office Visit [facility] MED[facility] [address] [place] [address] Alba So NP [address] [place] [address] documented as of this encounter Visit Diagnoses Not on filedocumented in this encounter Additional Health Concerns Assessment Noted Time PHQ-9 Depression Total Score: 0 06/03/20 23 10:05 AM EDT documented as of this encounter Care Teams Core Filer Relationship Specialty Start Date End Date Nirali Lott FNP [address] [place] [address] PCP - General Family Medicine 07/09/23 04/13/24 Alba So NP [address] [place] [address] PCP - General Family Medicine 04/14/24 documented as of this encounter
--- OUTSIDE RECORDS SUMMARY | 2025-07-31 22:58 | XMS_ITS | Encounter Summary ---
Author Organization [employer] Address [address] [place] [address] Care Team Providers Care Sports Management Professor Name Role Phone Nirali Lott Primary Care Provider [phone] Alba So NP Primary Care Provider [phone] Encounter Details Date Type Department Care Team (Late st Contact Info) Description 10/27/2023 Orders Only [facility] [address] [place] [address] Nirali Lott FNP [address] [place] [address] Infective endocarditis of tricuspid valve (Primary Dx) [...] Description 09/25/2025 2:00 PM EST Office Visit [facility] MEDICINE [address] [place], [place] [phone] Alba So NP [address] [place] [address] documented as of this encounter Procedures Procedure Name Priority Date/Time Associated Diagnosis Comments CT LIVER 3 PHASE Routine 10/27/2023 4:35 PM EST documented in this encounter Results * CT liver 3 phase (10/27/2023 4:35 PM EST) Anatomical Region Laterality Modality Liver Computed Tomogra phy 10/27/2023 4:35 PM EST Narrative 11/02/2023 11:06 AM EST [address] [address] [address] Scan Report Signed Patient: Norberto Marquez MR#: [id number] : 1990 Acct:[id number] Age/Sex: 33 / M ADM Date: 10/27/23 Loc: HO.CT Attending Dr: Randa Chisholm MD Ordering Physician: Randa Chisholm MD Date of Service: 10/27/23 Procedure(s): CT liver 3 phase Accession Number(s): [id number] cc: Randa Chisholm MD; [facility] EXAMINATION: CT ABDOMEN without and WITH [...] in OV> 11/02/23 1101 DD/ 1635 TD/TT: Buildings And Grounds Coordinator: SS Procedure Note Donotuseinterpreter, Image - 11/03/[address] [place] [address] [address] Scan Report Signed Patient: Zully Marquez#: [id number] : 1990Acct:[id number] Age/Sex: 33 / MADM Date: 10/27/23 Loc: HO.CT Attending Dr: Randa Chisholm MD Ordering Physician: Randa Chisholm MD Date of Service: 10/27/23 Procedure(s): CT liver 3 phase Accession Number(s): [id number] cc: Randa Chisholm MD; [facility] EXAMINATION: CT ABDOMEN without and WITH [...] in OV> 11/02/23 1101 DD/ 1635 TD/TT: Buildings And Grounds Coordinator: ELIEZER [facility] External Provider IMG CT PROCEDURES Final Result documented in this encounter Visit Diagnoses Diagnosis Infective endocarditis of tricuspid valve- Primary documented in this encounter Additional Health Concerns Assessment Noted Time PHQ-9 Depression Total Score: 0 06/03/20 10:05 AM EDT documented as of this encounter Care Teams Sports Management Professor Relationship Specialty Start Date End Date Nirali Lott FNP [address] [place] [address] PCP - General Family Medicine 07/09/23 04/13/24 Alba So NP [address] [place] [address] PCP - General Family Medicine 04/14/24 documented as of this encounter
--- OUTSIDE RECORDS SUMMARY | 2025-07-31 22:58 | XMS_ITS | Encounter Summary ---
Author Organization [facility] Address [address] [place] [address] Phone Care Team Providers Care Rod Cup Filler Name Role Phone Pcp, Unknown Primary Care Provider Unavailabl e Encounter Details Date Type Department Care Team (Late st Contact Info) Description 02/14/2020 Transcribe Orders [facility] Specimen Processing [address] [place] [address] Donell Villalobos, DO [address] [facility] [place] [address] [place] [address] [email or web address] Encounter for health [...] ALKALINE PHOSPHATASE 138(H) 39 - 117 U/L [facility] TOTAL BILIRUBIN 0.5 0.0 - 1.2 mg/dL [facility] DIRECT BILIRUBIN 0.2 0 - 0.3 mg/dL [facility] Bilirubin (Indirect) 0.3 0 - 1.5 mg/dL [facility] AST 114(H) 0 - 37 U/L [facility] ALT 235(H) 0 - 40 U/L [facility] TOTAL PROTEIN 6.8 6.5 - 8.0 g/dL [facility] ALBUMIN 4.1 3.9 - 4.8 g/dL [facility] GLOBULIN 2.7 1 - 4.8 g/dL [facility] A/G Ratio 1.52 1.00 - 4.80 RATIO [facility] Blood 02/15/2020 10:0 4 AM EDT 02/15/2020 11:32 AM EDT us Donell A Bigda DO LAB BLOOD ORDERABLES Final Resul t Performing Organization Address City/State/[facility] Co de Phone Number [facility] [address] [place] [address] documented in this encounter Visit Diagnoses Diagnosis Encounter for health examination of prisoner- Primary documented in this encounter Additional Health Concerns Infection Onset Date Last Indicated Resolved Time CoV-Risk 03/27/2023 03/27/2023 04/07/2023 1:22 AM EDT documented as of this encounter Care Teams Rod Cup Filler Relationship Specialty Start Date End Date Pcp, Unknown PCP - General 12/06/19 documented as of this encounter Additional Source Comments The information contained in this document represents components of the legal health record. It is not the complete legal health record.[facility]
--- OUTSIDE RECORDS SUMMARY | 2025-07-31 22:58 | XMS_ITS | Encounter Summary ---
Author Organization [facility] Address [address] [place] [phone] Phone Care Team Providers Care Registered Nurse Step Down Name Role Phone Pcp, Unknown Primary Care Provider Unavailabl e Encounter Details Date Type Department Care Team (Late st Contact Info) Description 04/08/2023 Transcribe Orders [facility] Specimen Processing [address] [place] [address] Martinez Rendon MD [address] [facility] [place] [address] [email or web address] Congestive heart failure, unspecified HF chronicity, unspecified [...] 7:23 PM EDT Aisha Zelaya, RN * [place] Suicide Severity Rating Scale (Screener/Recent Self-Report) Question Answer Date of Assessment Author 1. Wish to be (Past 1 Month) No 023 7:23 PM EDT Aisha Zelaya, RN 2. Non-Specific Active Suici liliane Thoughts (Past 1 Month) No 04/11/2023 7:23 PM EDT Aisha Zelaya, RN 6. Suicidal Behavior (Lifetime) No 3 7:23 PM EDT Aisha Zelaya RN documented as of this encounter Plan of Treatment Not on file documented as of this encounter Results * (ABNORMAL) Comprehensive metabolic panel (04/08/2023 5:55 AM EDT) SODIUM 140 133 - 146 mmol/L [facility] POTASSIUM 3.8 3.3 - 5.1 mmol/L [facility] CHLORIDE 108 96 - 108 mmol/L [facility] CO2 18(L) 21 - 35 mmol/L [facility] BUN 9 6 - 19 mg/dL [facility] CREATININE 0.70 0.5 - 1.5 mg/dL [facility] GLUCOSE 78 70 - 99 mg/dL [facility] ALBUMIN 3.7(L) 3.9 - 4.8 g/dL [facility] TOTAL PROTEIN 6.9 6.5 - 8.0 g/dL [facility] CALCIUM 8.9 8.4 - 10.3 mg/dL [facility] ALKALINE PHOSPHATASE 144(H) 39 - 117 U/L [facility] TOTAL BILIRUBIN 1.5(H) 0.0 - 1.2 mg/dL [facility] AST 13 0 - 37 U/L [facility] ALT 7 0 - 40 U/L [facility] GLOBULIN 3.2 1 - 4.8 g/dL [facility] EGFR >120 >59 mL/min/1.7 3m2 [facility] Comment:Estimated glomerular filtration rate calculated using the CKD-EPI refit equation. ANION GAP 18 10 - 20 mmol/L [facility] 04/08/2023 5:55 AM EDT 04/08/2023 8:22 AM EDT us Martinez Rendon MD LAB BLOOD ORDERABLES Final Resul t [address] [address] documented in this encounter Visit Diagnoses Diagnosis Congestive heart failure, unspecified HF chronicity, unspecified heart failure type- Primary documented in this encounter Care Teams Registered Nurse Step Down Relationship Specialty Start Date End Date Pcp, Unknown PCP - General 12/06/19 documented as of this encounter Additional Source Comments The information contained in this document represents components of the legal health record. It is not the complete legal health record.[facility]
--- OUTSIDE RECORDS SUMMARY | 2025-07-31 22:58 | XMS_ITS | Encounter Summary ---
Author Organization [employer] Address 75 [facility] 7t [place] [address] Care Team Providers Care Senior Label Specialist Name Role Phone Nirali LottP Primary Care Provider [phone] Alba So NP Primary Care Provider [phone] Reason for Visit * Reason Onset Date Comments PT1 10/02/2023 Encounter Details Date Type Department Care Team ([facility] st Contact Info) Description 10/02/2023 Telephone [facility] MED[facility]INE [address] [place] [address] Nirali Lott FNP [address] [place], [place] [phone] PT1 Social History Tobacco Use Types Packs/Day [...] 10/02/2023 11:00 AM EST PT-1 Request Number [id number] is Pending * Telephone Encounter - Christine Mak - 10/02/2023 10:32 AM EST Tc alanna Cruz with ICP requesting PT1 transportation. Date: 10/20/2022 Time: 10:15 Visits: 12 a year Address: [address] [place] [address] [facility] Chair: n/a Computer Scientist Needed: n/a documented in this encounter Plan of Treatment Upcoming Encounters Date Type Department Care Team (Late st Contact Info) Description 09/25/2025 2:00 PM EST Office Visit [facility] MED[facility]INE [address] [place] [address] Alba So NP [address] [place] [address] documented as of this encounter Visit Diagnoses Not on filedocumented in this encounter Additional Health Concerns Assessment Noted Time PHQ-9 Depression Total Score: 0 06/03/20 23 10:05 AM EDT documented as of this encounter Care Teams Senior Label Specialist Relationship Specialty Start Date End Date Nirali Lott FNP [address] [place] [address] PCP - General Family Medicine 07/09/23 04/13/24 Alba So NP [address] [place] [phone] PCP - General Family Medicine 04/14/24 documented as of this encounter
--- OUTSIDE RECORDS SUMMARY | 2025-07-31 22:58 | XMS_ITS | Encounter Summary ---
Author Organization [employer] Address 75 [facility] 7t [place] [address] Care Team Providers Care Salesperson Books Name Role Phone Nirali LottP Primary Care Provider [phone] Alba So NP Primary Care Provider [phone] Reason for Visit * Reason Onset Date Comments Hospital Follow-up 04/05/2024 Encounter Details Date Type Department Care Team ([facility] st Contact Info) Description 04/05/2024 Telephone [facility] MEDICINE [address] [place] [address] Nirali Lott FNP [address] [place] [address] Hospital Follow-up Social History Tobacco Use Types [...] from pt requesting a HDF appt. Hospital: [facility] Date of admission: 03/30 Discharge date: 04/01 Diagnosed: Chest Pain documented in this encounter Plan of Treatment Upcoming Encounters Date Type Department Care Team (Late st Contact Info) Description 09/25/2025 2:00 PM EST Office Visit [facility] [address] [place] [address] Alba So NP [address] [place] [address] documented as of this encounter Visit Diagnoses Not on filedocumented in this encounter Additional Health Concerns Assessment Noted Time PHQ-9 Depression Total Score: 0 06/03/20 10:05 AM EDT documented as of this encounter Care Teams Salesperson Books Relationship Specialty Start Date End Date Nirali Lott FNP [address] [place] [phone] PCP - General Family Medicine 07/09/23 04/13/24 Alba So NP [address] [place] [phone] PCP - General Family Medicine 04/14/24 documented as of this encounter
--- OUTSIDE RECORDS SUMMARY | 2025-07-31 22:58 | XMS_ITS | Encounter Summary ---
Author Organization [employer] Address 75 [facility] 7t [place] [address] Care Team Providers Care Nuclear Pharmacist Name Role Phone Alba So GENEVA Primary Care Provider [phone] Encounter Details Date Type Department Care Team (Late st Contact Info) Description 04/26/2024 Orders Only [facility] MEDICINE [address] [place] [address] Varun Givens, PharmD [address] [place] [address] Social History Tobacco Use Types Packs/Day Years [...] Description 09/25/2025 2:00 PM EST Office Visit [facility] MEDICINE [address] [place] [address] Alba So NP [address] [place] [address] documented as of this encounter Visit Diagnoses Not on filedocumented in this encounter Additional Health Concerns Assessment Noted Time PHQ-9 Depression Total Score: 0 06/03/20 23 10:05 AM EDT documented as of this encounter Care Teams Nuclear Pharmacist Relationship Specialty Start Date End Date Alba So NP [address] [place] [address] PCP - General Family Medicine 04/14/24 documented as of this encounter
--- OUTSIDE RECORDS SUMMARY | 2025-07-31 22:59 | XMS_ITS | Encounter Summary ---
Author Organization [employer] Address [address] [facility] [address] 7t [place] [address] Care Team Providers Care Hr Coordinator Name Role Phone GrahamFabriziomarty Harris FIELD SERVICE MANAGER Primary Care Provider Madisyn Jin [place] Primary Care Provider Unavail Nirali Diaz FIELD SERVICE MANAGER Primary Care Provider [phone] Alba So NP Primary Care Provider [phone] Encounter Details Date Type Department Care Team (Late st Contact Info) Description 01/05/2023 Orders Only [facility] [address] [place] [address] Nohemi Greene FNP Social History Tobacco Use [...] empyema, recurrent bacteremia and endocarditis,was admitted to [facility] on 07/16/22 for evaluation of chest pain [...] mom and was in a program in [place] and wasdischarged October 23, now lives at [...] [facility] MEDICINE [address] [place] [address] Alba So NP [address] [place], [place] [phone] documented as of this encounter Procedures Procedure [...] EDT 04/13/2023 3:00 PM EDT Comment:Blood Narrative [facility] - 04/18/2023 5:00 PM EDT Blood Culture (Second) No growth after 5 days. Specimen Source: Blood [facility] Exter nal Provider LAB MICROBIOLOGY - GENERAL ORDERABLES Final Result Performing Organization Address [facility]/ZIP Co de Phone Number [facility] [address] [place] [address] [phone] * Blood Culture (First) (04/13/2023 2:20 PM EDT) Blood 04/13/2023 2:20 PM EDT 04/13/2023 3:00 PM EDT Comment:Blood Narrative [facility] - 04/18/2023 5:00 PM EDT Blood Culture (First) No growth after 5 days. Specimen Source: Blood [facility] Exter nal Provider LAB MICROBIOLOGY - GENERAL ORDERABLES Final Result Performing Organization Address [facility]/ZIP Co de Phone Number [facility] [address] [place] [phone] * (ABNORMAL) Urinalysis, Complete, with Reflex to Culture (03/16/2023 6:50 PM EDT) Color Urine Dark Yellow [facility] Appearance Urine Clear [facility] PH 6.5 5.0 - 9.0 [facility] Glucose Urine UA Negative Negative mg/dL [facility] Urine Blood Small (1+)(A) Negative [facility] Specific Wirtz - Urine 1.015 1.005 - 1.025 [facility] Urine Protein 100 (2+)(A) Neg-Trace mg/dL [facility] Urine Ketones Negative Negative mg/dL [facility] Nitrite Urine Positive(A) Negative [facility] Leukocyte Esterase Urine Small (1+)(A) Negative [facility] RBC Urine >20(A) 0 - 2 /HPF [facility] Urine WBC 6-10(A) 0 - 5 /HPF [facility] Urine Squamous Epithelial Cell 0-2 0 - 2 /HPF [facility] Urine Bacteria None Seen None Seen [facility] Hyaline Casts, Urine 0-2 0 - 2 /LPF [facility] 03/16/2023 6:50 PM EDT 03/16/2023 7:08 PM EDT Narrative [facility] - 03/16/2023 7:57 PM EDT Urine, Clean Catch us [facility] External Provider LAB URI NE ORDERABLES Final Result [facility] [address] [place] [phone] * (ABNORMAL) CBC auto differential (03/16/2023 5:18 PM EDT) White Blood Count 11.0(H) 4.8 - 10.8 X10*3/uL [facility] Red Blood Count 4.07(L) 4.60 - 5.80 X10*6/uL [facility] Hemoglobin 9.7(L) 14.0 - 18.0 g/dl [facility] Hematocrit 30.7(L) 42.0 - 52.0 % [facility] Mean Corpuscular Volume 75.4(L) 80.0 - 98.0 fL [facility] Mean Corpuscular Hemoglobin 23.8(L) 27.0 - 33.0 pg [facility] Mean Corpuscular HGB Conc 31.6 31.0 - 36.0 g/dl [facility] Red Cell Distribution Width 31.5(H) 11.0 - 16.0 % [facility] Platelet Count 597(H) 160 - 400 X10*3/uL [facility] Mean Platelet Volume 9.8 9.4 - 12.4 fL [facility] Neutrophils Percent Auto 60.7 45 - 73 % [facility] Imm Gran Pct Auto 2.0(H) 0.0 - 0.4 % [facility] Lymphocytes Percent Auto 24.7 20 - 40 % [facility] Monocytes Percent Auto 10.5 2 - 11 % [facility] Eosinophils Percent Auto 1.1 0 - 4 % [facility] Basophils Percent Auto 1.0 0 - 2 % [facility] NRBC Pct Auto 0.0 0.0 - 0.2 /100WBC [facility] Neutrophils Absolute Auto 6.7 2.0 - 8.3 x10*3/uL [facility] Imm Gran Abs Auto 0.22(H) 0.00 - 0.03 X10*3/uL [facility] Lymphocytes Absolute Auto 2.7 1.2 - 4.9 X10*3/uL [facility] Monocytes Absolute Auto 1.2 0.1 - 1.2 X10*3/uL [facility] Eosinophils Absolute Auto 0.1 0.0 - 0.4 X10*3/uL [facility] Basophils Absolute Auto 0.1 0.0 - 0.2 X10*3/uL [facility] NRBC Abs Auto 0.000 0.0 - 0.012 X10*3/uL [facility] 03/16/2023 5:18 PM EDT 03/16/2023 5:24 PM EDT us [facility] External Provider LAB BLO OD ORDERABLES Final Result [facility] [address] [place] [phone] * High Sensitivity Troponin I (03/16/2023 5:18 PM EDT) TROPONIN I HIGH SENSITIVITY 11.4 <3.5 - 35.0 ng/L [facility] Comment:The Coley high sens itivity Troponin-I results should beused in conjunction with other diagnostic information suchas ECG, clinical observations and information, and patientsymptoms to aid in the diagnosis of IA. 03/16/2023 5:18 PM EDT 03/16/2023 5:24 PM EDT [facility] External Provider LAB BLO OD ORDERABLES Final Result Performing Organization Address [facility] Co de Phone Number [facility] [address] [place] [phone] * (ABNORMAL) B Type Natriuretic Peptide (BNP) (03/16/2023 5:18 PM EDT) B Type Natriuretic Peptide 378(H) <100 pg/mL [facility] Comment:For those patients w ho are being treated with Natrecor(nesiritide, recombinant BNP), BNP testing should beperformed at least two hours post treatment in order toensure that only endogenous levels of BNP are detected. 03/16/2023 5:18 PM EDT 03/16/2023 5:24 PM EDT [facility] External Provider LAB BLO OD ORDERABLES Final Result Performing Organization Address [facility] Co de Phone Number [facility] [address] [place] [phone] * (ABNORMAL) Lipase (03/16/2023 5:18 PM EDT) Lipase 168(H) 8 - 78 U/L [facility] 03/16/2023 5:18 PM EDT 03/16/2023 5:24 PM EDT [facility] External Provider LAB BLO OD ORDERABLES Final Result Performing Organization Address [facility] Co de Phone Number [facility] [address] [place] [phone] * (ABNORMAL) Basic Metabolic Panel (03/16/2023 5:18 PM EDT) Sodium 139 135 - 145 mmol/L [facility] Potassium 3.0(L) 3.3 - 5.1 mmol/L [facility] Chloride 106 96 - 108 mmol/L [facility] Carbon Dioxide 20(L) 22 - 29 mmol/L [facility] Anion Gap 16 12 - 20 [facility] Urea Nitrogen (BUN) 8(L) 9 - 16 mg/dL [facility] Creatinine, Serum 0.74 0.5 - 1.4 mg/dL [facility] Creatinine Clr Calc Pharmacy 131.5 [facility] Comment:eGFR (calculated fro m the MDRD study equation) and eCrCl(calculated from the Cockcroft-Gault equation) are based ondifferent parameters and may not yield comparable results.If eCrCl result is absurd, please check patient'sheight/weight. Estimated Glomerular Filt Rate >60 [facility] Comment:NOTE: For -Am erican individuals, multiply the result by 1.210.Chronic Kidney Disease: Estimated GFR < 60 mL/min/1.07g1Ebuljz Kidney Disease: Estimated GFR < 15 mL/min/1.73m2 Glucose 84 60 - 115 mg/dL [facility] Calcium 9.4 8.4 - 10.2 mg/dL [facility] 03/16/2023 5:18 PM EDT 03/16/2023 5:24 PM EDT us [facility] External Provider LAB BLO OD ORDERABLES Final Result [facility] [address] [place] [phone] [phone] * (ABNORMAL) Hepatic Function Panel (03/16/2023 5:18 PM EDT) Bilirubin, Total 5.9(H) 0.0 - 1.0 mg/dL [facility] Bilirubin, Direct 3.5(H) 0.0 - 0.5 mg/dL [facility] Aspartate Amino Transferase 19 5 - 37 U/L [facility] Alanine Aminotransferase 13 0 - 40 U/L [facility] Total Protein 7.7 6.5 - 8.0 g/dL [facility] Albumin Level 3.9 3.5 - 5.0 g/dL [facility] Alkaline Phosphatase 154(H) 39 - 117 U/L [facility] 03/16/2023 5:18 PM EDT 03/16/2023 5:24 PM EDT [facility] External Provider LAB BLO OD ORDERABLES Final Result Performing Organization Address [facility] Co de Phone Number [facility] [address] [place] [phone] * Lactic Acid (03/16/2023 5:18 PM EDT) Lactic Acid 1.7 0.5 - 2.0 mmol/L [facility] 03/16/2023 5:18 PM EDT 03/16/2023 5:24 PM EDT [facility] External Provider LAB BLO OD ORDERABLES Final Result Performing Organization Address [facility] Co de Phone Number [facility] [address] [place] [phone] documented in this encounter Visit Diagnoses Not on filedocumented in this encounter Care Teams Hr Coordinator Relationship Specialty Start Date End Date Megan Stevenson FNP PCP - General Family Medicine 03/27/22 04/23/23 Jin Mack AGNP PCP - General Family Medicine 04/24/23 07/08/23 Nirali Lott FNP [address] [place] [address] PCP - General Family Medicine 07/09/23 04/13/24 Alba So NP [address] [place] [phone] PCP - General Family Medicine 04/14/24 documented as of this encounter
--- OUTSIDE RECORDS SUMMARY | 2025-07-31 22:59 | XMS_ITS | Encounter Summary ---
Author Organization [employer] Address 75 [facility] 7t [place] [address] Care Team Providers Care Chicken Raiser Name Role Phone Alba So NP Primary Care Provider [phone] Encounter Details Date Type Department Care Team (Late st Contact Info) Description 07/07/2025 Results Follow-Up [facility] MEDICINE [address] [place] [address] Alba oS NP [address] [place] [address] CBC auto differential, Complete Blood Count Manual [...] Description 09/25/2025 2:00 PM EST Office Visit [facility] [address] [place] [address] Alba So NP [address] [place] [address] documented as of this encounter Visit Diagnoses Not on filedocumented in this encounter Additional Health Concerns Assessment Noted Time PHQ-9 Depression Total Score: 18 024 11:56 AM EST documented as of this encounter Care Teams Chicken Raiser Relationship Specialty Start Date End Date Alba So NP [address] [place] [address] PCP - General Family Medicine 04/14/24 documented as of this encounter
--- OUTSIDE RECORDS SUMMARY | 2025-07-31 22:59 | XMS_ITS | Encounter Summary ---
Author Organization [facility] Address [address] [place] [phone] Phone Care Team Providers Care Control Systems Drafting Officer Name Role Phone Pcp, Unknown Primary Care Provider Unavailabl e Encounter Details Date Type Department Care Team (Late st Contact Info) Description 10/20/2023 Transcribe Orders Virtual Department [address] [place] [address] Lucy Best PA [address] [place], [place] [phone] [email or web address] Anemia, unspecified type (Primary Dx) Social History [...] Primary documented in this encounter Care Teams Control Systems Drafting Officer Relationship Specialty Start Date End Date Pcp, Unknown PCP - General 12/06/19 documented as of this encounter Additional Source Comments The information contained in this document represents components of the legal health record. It is not the complete legal health record.[facility]
--- OUTSIDE RECORDS SUMMARY | 2025-07-31 22:59 | XMS_ITS | Clinical Summary ---
Author Organization [facility] Facility Address [address] [place] [address], [place] [address] Care Team Providers Care Spear Fisher Name Role Phone Unavailable Primary Care Provider [...]
--- OUTSIDE RECORDS SUMMARY | 2025-07-31 22:59 | XMS_ITS | Encounter Summary ---
Author Organization [facility] Address [address] [place] [phone] Phone Care Team Providers Care Weave Defect Charting Clerk Name Role Phone Pcp, Unknown Primary Care Provider Unavailabl e Encounter Details Date Type Department Care Team (Late st Contact Info) Description 10/28/2023 Procedure Pass [facility] Endoscopy Admitting Dept Virtual Department [address] [place] [address] Social History Tobacco Use Types Packs/Day Years [...] on filedocumented in this encounter Care Teams Weave Defect Charting Clerk Relationship Specialty Start Date End Date Pcp, Unknown PCP - General 12/06/19 documented as of this encounter Additional Source Comments The information contained in this document represents components of the legal health record. It is not the complete legal health record.[facility]
--- OUTSIDE RECORDS SUMMARY | 2025-07-31 22:59 | XMS_ITS | Encounter Summary ---
Author Organization [employer] Address 75 [facility] 7t [place] [address] Care Team Providers Care Methods Specialist Name Role Phone Alba So NP Primary Care Provider [phone] Encounter Details Date Type Department Care Team (Late st Contact Info) Description 12/21/2024 Orders Only [facility] MED[facility] [address] [place] [address] Alba So NP [address] [place] [address] Social History Tobacco Use Types Packs/Day Years [...] PM EST Office Visit [facility] [address] [place] [address] Alba So NP [address] [place] [address] documented as of this encounter Visit Diagnoses Not on filedocumented in this encounter Additional Health Concerns Assessment Noted Time PHQ-9 Depression Total Score: 18 024 11:56 AM EST documented as of this encounter Care Teams Methods Specialist Relationship Specialty Start Date End Date Alba So NP [address] [place] [phone] PCP - General Family Medicine 04/14/24 documented as of this encounter
--- OUTSIDE RECORDS SUMMARY | 2025-07-31 22:59 | XMS_ITS | Encounter Summary ---
Author Organization [employer] Address 75 [facility] 7t [place] [address] Care Team Providers Care Solidworks Mechanical Designer Name Role Phone Nirali LottP Primary Care Provider [phone] Alba So NP Primary Care Provider [phone] Reason for Visit * Reason Onset Date Comments PT1 08/05/2023 Encounter Details Date Type Department Care Team ([facility] st Contact Info) Description 08/05/2023 Telephone [facility] MEDICINE [address] [place] [address] Nirali Lott FNP [address] [place], [place] [phone] PT1 Social History Tobacco Use Types Packs/Day [...] 08/05/2023 1:12 PM EDT PT-1 Request Number [id number] is Pending * Telephone Encounter - aSge Telles - 08/05/2023 12:36 PM EDT Tc alanna Manley with [facility] Partner requesting a PT1: Name of facility: [facility] Specialty: Consult possible liver transplant Location: [address] [place] [address] Date: 08/12/2023 Time: 11:00 am fax: n/a wheelchair: no Work Environment Safety Inspector: no All future appt's documented in this encounter Plan of Treatment Upcoming Encounters Date Type Department Care Team (Late st Contact Info) Description 09/25/2025 2:00 PM EST Office Visit [facility] [address] [place] [address] Alba So NP [address] [place] [address] documented as of this encounter Visit Diagnoses Not on filedocumented in this encounter Additional Health Concerns Assessment Noted Time PHQ-9 Depression Total Score: 0 06/03/20 10:05 AM EDT documented as of this encounter Care Teams Solidworks Mechanical Designer Relationship Specialty Start Date End Date Nirali Lott FNP [address] [place] [address] PCP - General Family Medicine 07/09/23 04/13/24 Alba So NP [address] [place] [address] PCP - General Family Medicine 04/14/24 documented as of this encounter
--- OUTSIDE RECORDS SUMMARY | 2025-07-31 22:59 | XMS_ITS | Encounter Summary ---
Author Organization [employer] Address 75 [facility] 7t [place] [address] Care Team Providers Care Buggy Runner Name Role Phone Mack Jin WHITTEN Primary Care Provider Unavail able Nirali Lott Primary Care Provider [phone] Alba So NP Primary Care Provider [phone] Encounter Details Date Type Department Care Team ([facility] Contact Info) Description 06/08/2023 Orders Only [facility] [address] [place], [place] [phone] Nirali Lott FNP [address] [place] [address] Chronic hepatitis C without hepatic coma (CMS/HCC) [...] Upcoming Encounters Date Type Department Care Team ([facility] Contact Info) Description 09/25/2025 2:00 PM EST Office Visit [facility] [address] [place] [address] Alba So NP [address] [place] [address] documented as of this encounter Visit Diagnoses Diagnosis Chronic hepatitis C without hepatic coma (HCC)- Primary documented in this encounter Additional Health Concerns Assessment Noted Time PHQ-9 Depression Total Score: 0 06/03/20 10:05 AM EDT documented as of this encounter Care Teams Buggy Runner Relationship Specialty Start Date End Date Jin Mack AGNP PCP - General Family Medicine 04/24/23 07/08/23 Nirali Lott FNP [address] [place] [address] PCP - General Family Medicine 07/09/23 04/13/24 Alba So NP [address] [place] [address] PCP - General Family Medicine 04/14/24 documented as of this encounter
--- OUTSIDE RECORDS SUMMARY | 2025-07-31 22:59 | XMS_ITS | Encounter Summary ---
Author Organization [employer] Address [address] [facility] [address] [place] [address] Care Team Providers Care Evp Chief Exploration Officer Name Role Phone Nirali Lott Primary Care Provider [phone] Alba So NP Primary Care Provider [phone] Reason for Referral * Consultation (Routine) - Closed Specialty Diagnoses / Procedures Referred By Merle t Referred To Contact Hand Surgery Diagnoses Pain in finger of left hand Nirali Lott FNP [address] [place] [address] Phone: tel: fax: [facility] [address] [place] [address] Phone: tel: Referral ID Status Reason Start Date Expiration Date V isits Requested Visits Authorized [id number] Closed Specialty Services Required 12/23/2023 12/22/2024 6 6 Encounter Details Date Type Department Care Team (Late st Contact Info) Description 12/23/2023 Orders Only [facility] [address] [place] [address] Nirali Lott FNP [address] [place] [address] Pain in finger of left hand (Primary [...] Description 09/25/2025 2:00 PM EST Office Visit [facility] [address] [place] [address] Alba So NP [address] [place] [address] Scheduled Referrals Name Type Priority Associated Diagnoses [...] documented as of this encounter Care Teams Evp Chief Exploration Officer Relationship Specialty Start Date End Date Nirali Lott FNP [address] [place] [address] PCP - General Family Medicine 07/09/23 04/13/24 Alba So NP [address] [place] [address] PCP - General Family Medicine 04/14/24 documented as of this encounter
--- OUTSIDE RECORDS SUMMARY | 2025-07-31 22:59 | XMS_ITS | Encounter Summary ---
Author Organization [employer] Address [address] [facility] [address] [place] [address] Care Team Providers Care Banking Pin Adjuster Name Role Phone Alba So DIRECTOR [employer] Primary Care Provider [phone] Reason for Visit * Reason Onset Date Comments Hep C tx 07/26/2025 Encounter Details Date Type Department Care Team ([facility] Contact Info) Description 07/26/2025 Telephone [facility] MEDICINE [address] [place] [address] Humaira Bruno, RN [address] [place] [address] Hep C tx Social History Tobacco Use Types Packs/Day Years [...] encounter Miscellaneous Notes * Telephone Encounter - Humaira Bruno RN - 07/26/2025 3:46 PM EDT RN received Hep C treatment referral. RN called pt, female answered stating pt is currently in a program and unsure how long he will be in. RN will follow up with pt at a later date to see if he is interested in Hep C treatment. documented in this encounter Plan of Treatment Upcoming Encounters Date Type Department Care Team (Late st Contact Info) Description 09/25/2025 2:00 PM EST Office Visit [facility] MEDICINE [address] [place] [address] Alba So NP [address] [place] [address] documented as of this encounter Visit Diagnoses Not on filedocumented in this encounter Additional Health Concerns Assessment Noted Time PHQ-9 Depression Total Score: 18 024 11:56 AM EST documented as of this encounter Care Teams Banking Pin Adjuster Relationship Specialty Start Date End Date Alba So NP [address] [place] [address] PCP - General Family Medicine 04/14/24 documented as of this encounter
--- OUTSIDE RECORDS SUMMARY | 2025-07-31 22:59 | XMS_ITS | Clinical Summary ---
Author Organization [employer] Address [address] [place] [address] Care Team Providers Care Blood And Plasma Laboratory Assistant Name Role Phone Alba So GENEVA Primary Care Provider [phone] Allergies No known active allergies Medications * [...] Active Problems Problem Noted Date Diagnosed Date History of positive hepatitis C 07/24/2025 Venous stasis dermatitis of both lower extremiti [...] treatment, ambulance called and expect [facility]. 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 03/16/23-04/15/23 (anticipated discharge date) Anemia, chronic disease 10/09/2022 Symptomatic anemia 10/09/2022 Overview (10/09/2022): Acute anemia related to tooth extractions on 10/01/22 while still on xarelto for anticoagulation. Taken to [place] ED, bleeding gums, not able to stop with pressure Hemoglobin 3 Received 1 prbc transfusion Transferred to [facility] for admission on 10/02/22. Received another transfusion Discharged 10/06/22 Ascites 07/21/2022 Bacteremia 07/21/2022 Overview (04/18/2023): Recurrent bacteremia and endocarditis found 03/04/23. Admitted. Left AMA on 03/14/23 Returned 03/15/23. Admitted again with plan to transfer to [facility], [facility], to continue antibiotics until 04/15 to finish [...] dependence (CMS/HCC) 06/27/2022 Overview (08/23/2024): Admitted to [place] for rehab Treated w/ Methadone [address] [facility] 03/16/23-04/15/23 -referred to [place] for Recovery and Support 08/23/24 Assessment & Plan (08/23/2024 2:45 PM EST): Admitted to [place] for rehab Treated w/ Methadone [address] [facility] 03/16/23-04/15/23 -referred to [place] for Recovery and Support 08/23/24 Assessment & [...] 2020 Overview (10/09/2022): 07/16/22 - Presented to [facility] ED with hypotension, found to be in septic shock 07/20/22 - Left hospital AMA before completing IV antibiotics. Blood cultures positive for GBS and required pressor support when he arrived. 07/21/22 - Mother took Pt to [facility] since he left [facility] AM. Pt IV drug use while [...] treatment or fibrosis score as of 04/13/23 [facility] notes Assessment & Plan (08/06/2023 8:36 PM EDT): Hep C active complicated w decompensated cirrhosis with ascitis Hep C to start tx following now w GI at [facility] per pt Assessment & Plan (06/03/2023 2:07 PM EDT): Patient not sure if he received a referral to [facility] for hep c treatment or not. I will place a referral to our [facility] hep c team. 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, bilateral; History of positive hepatitis C 07/19/2025 Orders Only [facility] External Provider, [facility] 07/19/2025 Travel 07/18/2025 9:20 AM EDT Office [facility] [address] [address] Nighat Galloway MD Hx pulmonary embolism (Primary Dx); Shortness of breath; Hx of heart failure 07/18/2025 Travel 07/17/[address] [address] Malika Garnett, Glynn 07/15/2025 10:40 AM EDT Office Visit [address] [address] Daniela Vaughn MD Venous stasis dermatitis of both lower extremities (Primary Dx); Bleeding from varicose veins of left lower extremity 07/15/2025 Travel 07/11/2025 Patient Outreach [address] [address] Alba So NP Pre-visit Planning (HDF- scheduled with the direct line and SDOH screening completed on 01/19/2025) 07/07/2025 Results Follow-Up [address] [address] Alba So NP CBC auto differential, Complete Blood Count Manual Diff, Prothrombin Time-INR, Additional followed-up results: 7 06/06/2025 Orders Only GENERIC EXTERNAL DATA DEPARTMENT Provider, Generic External Data 06/04/2025 Orders Only GENERIC EXTERNAL DATA DEPARTMENT Provider, Generic External Data 05/30/[address] [address] Leela Gamino RN 05/02/2025 Patient Outreach [facility] [address], [place] [address] Alba So NP Transition Of Care (Tcm) (HDF unscheduled) 05/01/2025 Patient Outreach [facility] [address] [place] [address] Alba So NP Transition Of Care (Tcm) [...] Description 09/25/2025 2:00 PM EST Office Visit [facility] [address] [place] [address] Alba So NP [address] [place] [address] Health Maintenance Due Date Last Done Comments [...] 5 season) 2025 Influenza Vaccine (#1) 2025 0, 07/27/2020 Alcohol/Substance Use Screening 10/18/2025 10/18/2024 SDOH [...] Procedure Name Priority Date/Time Associated Diagnosis Comments DRUG MONITOR, PANEL 1, SCREEN, URINE Routine 07/19/2025 8:51 PM EDT XR CHEST 2 VIEWS Routine 07/19/2025 6:24 [...] Relevant to Health Maintenance Results * (ABNORMAL) Drug Monitoring, Panel 1, Screen, Urine (07/19/2025 8:51 PM EDT) Only the most recent of3 resultswithin the time period is included. Opiate Screen Urine Not Detected Not Detect [facility] Comment:Opiate cut-off is 30 0 ng/mL.Positive results are unconfirmed and should not be used fornon-medical purposes. Barbiturates, Urine Not Detected Not Detect [facility] Comment:Barbiturate cut-off is 200 ng/mL.Positive results are unconfirmed and should not be used fornon-medical purposes. Phencyclidine Screen Urine Not Detected Not Detect [facility] Comment:Phencyclidine cut-of f is 25 ng/mL.Positive results are unconfirmed and should not be used fornon-medical purposes. Amphetamine Screen Urine Not Detected Not Detect [facility] Comment:Amphetamine cut-off is 1000 ng/mL.Positive results are unconfirmed and should not be used fornon-medical purposes. Benzodiazepines Screen Urine Not Detected Not Detect [facility] Comment:Benzodiazepine cut-o ff is 200 ng/mL.Positive results are unconfirmed and should not be used fornon-medical purposes. Cocaine Screen Urine Not Detected Not Detect [facility] Comment:Cocaine cut-off is 3 00 ng/mL.Positive results are unconfirmed and should not be used fornon-medical purposes. Cannabinoid Screen Urine Not Detected Not Detect [facility] Comment:Cannabinoid cut-off is 50 ng/mL.Positive results are unconfirmed and should not be used fornon-medical purposes. Methadone Screen, Urine Positive(A) Not Detect ng/mL [facility] Comment:Methadone cut-off is 300 ng/mL.Positive results are unconfirmed and should not be used fornon-medical purposes. FENTANYL URINE Not Detected Not Detect [facility] Comment:Fentanyl cut-off is 1 ng/mL.Positive results are unconfirmed and should not be used fornon-medical purposes. Oxycodone Urine Screen Not Detected Not Detect ng/mL [facility] Comment:Oxycodone cut-off is 100 ng/mL.Positive results are unconfirmed and should not be used fornon-medical purposes. Buprenorphine Screen Not Detected Not Detect ng/mL [facility] Comment:Buprenorphine cut-of f is 5 ng/mL.Positive results are unconfirmed and should not be used fornon-medical purposes. 07/19/2025 8:51 PM EDT 07/19/2025 8:52 PM EDT us Generic External Data Provider LAB URINE ORDERAB LES Final Result [facility] [address] [place] [address] [phone] * XR Chest 2 Views (07/19/2025 6:24 PM EDT) Anatomical Region Laterality Modality Chest Radiographic Ladan ging 07/19/2025 6:24 PM EDT Narrative 07/19/2025 6:26 PM EDT [address] [address] XRay Report Signed Patient: Norberto Marquez MR#: [id number] : 1990 Acct:[id number] Age/Sex: 34 / M ADM Date: 07/19/25 Loc: HO.ED Attending Dr: Ordering Physician: Alana Carreon Date of Service: 07/19/25 Procedure(s): XR chest 2V Accession Number(s): [id number] cc: [facility]; Alana Carreon Reason for Exam: SOB [...] in OV> 07/19/251824 DD/ 23 TD/TT: 07/19/251823 Air Battle Manager: Procedure Note Donotuseinterpreter, Image - 07/19/[address] [address] XRay Report Signed Patient: Marcelo MarquezR#: [id number] : 1990Acct:[id number] Age/Sex: 34 / MADM Date: 07/19/25 Loc: HO.ED Attending Dr: Ordering Physician: Alana Carreon Date of Service: 07/19/25 Procedure(s): XR chest 2V Accession Number(s): [id number] cc: [facility]; Alana Carreon Reason for Exam: SOB [...] in OV> 07/19/251824 DD/ 23 TD/TT: 07/19/251823 Air Battle Manager: [facility] External Provider IMG XR PROCEDURES Final Result * Influenza A B2 ID NOW (Cheung) (07/19/2025 6:22 PM EDT) IDNOW SERIAL# [id number] [facility] Influenza A Negative Negative [facility] Influenza B2 Negative Negative [facility] Influenza A B2 Note See Note [facility] Comment:The Cheung ID NOW In fluenza [...] GENERAL ORDERABLES Final Result Performing Organization Address City/[facility] Co de Phone Number [facility] [address] [place] [phone] * Slide Review (07/19/2025 6:22 PM EDT) Slide Review VERIFIED [facility] 07/19/2025 6:22 PM EDT 07/19/2025 6:27 PM EDT Generic External Data Provider LAB BLOOD ORDERAB LES Final Result Performing Organization Address [facility]/ZIP Co de Phone Number [facility] [address] [place] [phone] * COVID-19 ID NOW (CHEUNG) (07/19/2025 6:22 PM EDT) IDAKINW SERIAL# [id number] [facility] COVID-19 TEST Negative Negative [facility] COVID-19 NOTE See Note [facility] Comment: Results are for the identification of SARS-CoV2 RNA. TheSARS-CoV2 RNA is generally detectable in respiratory samplesduring the acute phase of infection. Positive results areindicative of the presence of SARS-CoV-2 RNA; clinicalcorrelation with patient history and other diagnosticinformation is necessary to determine patient infectionstatus. Positive results do not rule out bacterial infectionor co- infection with other viruses.Testing facilities within the [facility] and itsterritories are required to report all positive results [...] GNOSTICS ORDERABLES Final Result Performing Organization Address City/[facility]/ZIP Co de Phone Number [facility] [address] [place] [phone] * High Sensitivity Troponin I (07/19/2025 6:22 PM EDT) Only the most recent of3 resultswithin the time period is included. TROPONIN I HIGH SENSITIVITY 3.3 <3.5 - 35.0 ng/L [facility] Comment:The Cheung high sens itivity Troponin-I results should beused in conjunction with other diagnostic information suchas ECG, clinical observations and information, and patientsymptoms to aid in the diagnosis of MN. 07/19/2025 6:22 PM EDT 07/19/2025 6:27 PM EDT Generic External Data Provider LAB BLOOD ORDERAB LES Final Result Performing Organization Address [facility]/ZIP Co de Phone Number [facility] [address] [place] [phone] * Ethanol (07/19/2025 6:22 PM EDT) Only the most recent of2 resultswithin the time period is included. ETHANOL (MG/DL) IN SER/PLAS <10 mg/dL [facility] Comment:Serum/plasma ethanol results are to be used formedical/treatment purposes only. 07/19/2025 6:22 PM EDT 07/19/2025 6:27 PM EDT [employer] External Data Provider LAB BLOOD ORDERAB LES Final Result Performing Organization Address [facility] Co de Phone Number [facility] [address] [place] [phone] * NT-proBNP (07/19/2025 6:22 PM EDT) NT-proBNP 251.0 <300 pg/mL [facility] Comment:Reference Range:Age Group (years) NT-proBNP (pg/ml) InterpretationAll <300 Negative: HF unlikelyFor patients presenting to the ED with clinical suspicion ofnew onset or worsening HF, see below:18 to <50 >299.9 to <450.0 Grayzone: [id number] to 75 >299.9 to <900.0 other causes of>75 >299.9 to <1800.0 NT-proBNP [id number] to <50 >449.9 Positive: HF [id number] >899.9>75 >1799.9Note: Elevated NT-proBNP levels should be interpreted inthe context of other clinical information. 07/19/2025 6:22 PM EDT 07/19/2025 6:27 PM EDT us Generic External Data Provider LAB BLOOD ORDERAB LES Final Result [facility] [address] [place] [phone] * (ABNORMAL) CBC auto differential (07/19/2025 6:22 PM EDT) Only the most recent of3 resultswithin the time period is included. White Blood Count 5.8 4.8 - 10.8 X10*3/uL [facility] Red Blood Count 4.71 4.60 - 5.80 X10*6/uL [facility] Hemoglobin 10.8(L) 14.0 - 18.0 g/dl [facility] Hematocrit 36.1(L) 42.0 - 52.0 % [facility] Mean Corpuscular Volume 76.6(L) 80.0 - 98.0 fL [facility] Mean Corpuscular Hemoglobin 22.9(L) 27.0 - 33.0 pg [facility] Mean Corpuscular HGB Conc 29.9(L) 31.0 - 36.0 g/dl [facility] Red Cell Distribution Width 28.6(H) 11.0 - 16.0 % [facility] Platelet Count 176 160 - 400 X10*3/uL [facility] Mean Platelet Volume 10.2 9.4 - 12.4 fL [facility] Neutrophils Percent Auto 50.0 45 - 73 % [facility] Imm Gran Pct Auto 1.2(H) 0.0 - 0.4 % [facility] Lymphocytes Percent Auto 26.6 20 - 40 % [facility] Monocytes Percent Auto 17.4(H) 2 - 11 % [facility] Eosinophils Percent Auto 4.1(H) 0 - 4 % [facility] Basophils Percent Auto 0.7 0 - 2 % [facility] NRBC Pct Auto 0.0 0.0 - 0.2 /100WBC [facility] Neutrophils Absolute Auto 2.9 2.0 - 8.3 x10*3/uL [facility] Imm Gran Abs Auto 0.07(H) 0.00 - 0.03 X10*3/uL [facility] Lymphocytes Absolute Auto 1.5 1.2 - 4.9 X10*3/uL [facility] Monocytes Absolute Auto 1.0 0.1 - 1.2 X10*3/uL [facility] Eosinophils Absolute Auto 0.2 0.0 - 0.4 X10*3/uL [facility] Basophils Absolute Auto 0.0 0.0 - 0.2 X10*3/uL [facility] NRBC Abs Auto 0.000 0.0 - 0.012 X10*3/uL [facility] 07/19/2025 6:22 PM EDT 07/19/2025 6:27 PM EDT us Generic External Data Provider LAB BLOOD ORDERAB LES Edited Result - Final Performing Organization Address [facility] Co de Phone Number [facility] [address] [place] [phone] * Magnesium (07/19/2025 6:22 PM EDT) Only the most recent of3 resultswithin the time period is included. Magnesium 1.6 1.6 - 2.6 mg/dL [facility] 07/19/2025 6:2 2 PM EDT 07/19/2025 6:27 PM EDT us Generic External Data Provider LAB BLOOD ORDERAB LES Final Result Performing Organization Address [facility] Co de Phone Number [facility] [address] [place] [phone] * (ABNORMAL) Ammonia, Plasma (07/19/2025 6:22 PM EDT) Ammonia (P) 59(H) 13 - 55 umol/L [facility] 07/19/2025 6:22 PM EDT 07/19/2025 6:27 PM EDT Generic External Data Provider LAB BLOOD ORDERAB LES Final Result Performing Organization Address [facility]/ZIP Co de Phone Number [facility] [address] [place] [phone] * (ABNORMAL) Hepatic Function Panel (07/19/2025 6:22 PM EDT) Bilirubin, Total 0.9 0.0 - 1.0 mg/dL [facility] Bilirubin, Direct 0.5 0.0 - 0.5 mg/dL [facility] Aspartate Amino Transferase 94(H) 5 - 37 U/L [facility] Alanine Aminotransferase 81(H) 0 - 40 U/L [facility] Total Protein 7.1 6.5 - 8.0 g/dL [facility] Albumin Level 4.0 3.5 - 5.0 g/dL [facility] Alkaline Phosphatase 273(H) 39 - 117 U/L [facility] 07/19/2025 6:22 PM EDT 07/19/2025 6:27 PM EDT Generic External Data Provider LAB BLOOD ORDERAB LES Final Result Performing Organization Address City/[facility]/ZIP Co de Phone Number [facility] [address] [place] [phone] * (ABNORMAL) Basic Metabolic Panel (07/19/2025 6:22 PM EDT) Sodium 138 135 - 145 mmol/L [facility] Potassium 4.5 3.3 - 5.1 mmol/L [facility] Chloride 109(H) 96 - 108 mmol/L [facility] Carbon Dioxide 21(L) 22 - 29 mmol/L [facility] Anion Gap 13 12 - 20 [facility] Urea Nitrogen (BUN) 21(H) 9 - 16 mg/dL [facility] Creatinine, Serum 0.79 0.5 - 1.4 mg/dL [facility] Creatinine Clr Calc Pharmacy 126.2 [facility] Comment:eGFR (calculated fro m the MDRD study equation) and eCrCl(calculated from the Cockcroft-Gault equation) are based ondifferent parameters and may not yield comparable results.If eCrCl result is absurd, please check patient'sheight/weight. Estimated Glomerular Filt Rate >60 [facility] Comment:Chronic Kidney Disea se: Estimated GFR < 60 mL/min/1.90s3Qpqmzi Kidney Disease: Estimated GFR < 15 mL/min/1.73m2 Glucose 98 60 - 115 mg/dL [facility] Calcium 9.6 8.4 - 10.2 mg/dL [facility] 07/19/2025 6:22 PM EDT 07/19/2025 6:27 PM EDT us Generic External Data Provider LAB BLOOD ORDERAB LES Final Result Performing Organization Address [facility]/ZIP Co de Phone Number [facility] [address] [place] [phone] * Influenza B (ID NOW Rapid Molecular) (07/18/2025 12:57 PM EDT) Influenza B Negative Negative, Indeterminate [facility] Swab 07/18/2025 12:5 7 PM EDT Nighat Galloway MD POINT OF CARE TEST ENTER/E DIT ORDERABLES Final Result Performing Organization Address [facility] Co de Phone Number [facility] [address] [place] [phone] * Influenza A (ID NOW Rapid Molecular) (07/18/2025 12:57 PM EDT) Pathologist [facility] Influenza A Negative Negative, Indeterminate [facility] Swab 07/18/2025 12:5 7 PM EDT Nighat Galloway MD POINT OF CARE TEST ENTER/E DIT ORDERABLES Final Result [facility] [address] [place] [phone] * POCT Rapid COVID Ag (07/18/2025 9:33 AM EDT) [facility] Rapid COVID Ag Negative Swab 07/18/2025 9:33 AM EDT Nighat Galloway MD POINT OF CARE TEST ENTER/E DIT ORDERABLES Final Result * POCT rapid strep A manually resulted (07/18/2025 9:33 AM EDT) [facility] Rapid Strep A Screen Negative Negative, None Detected Swab 07/18/2025 9:33 AM EDT Nighat Galloway MD POINT OF CARE TEST ENTER/E DIT ORDERABLES Final Result * CT Head w/o Contrast (06/08/2025 10:44 AM EDT) Anatomical Region Laterality Modality Head, Neck Computed Tomogra phy 06/08/2025 10:4 4 AM EDT Narrative 06/08/2025 12:17 PM EDT [address] [address] [address] Scan Report Signed Patient: Norberto Marquez MR#: [id number] : 1990 Acct:[id number] Age/Sex: 34 / M ADM Date: 06/06/25 Loc: [facility] 471-[address]: David Altman MD Ordering Physician: David Altman MD Date of Service: 06/08/25 Procedure(s): CT head/brain wo IV con Accession Number(s): [id number] cc: [facility]; David Altman MD Report Number: [id number]: Total DLP = 1453.00 mGy-cm EXAMINATION: CT [...] 06/08/25 1215 DD/ 1044 TD/TT: 06/08/25 1158 Air Battle Manager: Procedure Note Donotuseinterpreter, Image - 06/08/[address] [address] [address] Scan Report Signed Patient: Zully Marquez#: [id number] : 1990Acct:[id number] Age/Sex: 34 / MADM Date: 06/06/25 Loc: [facility] 471-[address]: David Altman MD Ordering Physician: David Altman MD Date of Service: 06/08/25 Procedure(s): CT head/brain wo IV con Accession Number(s): [id number] cc: [facility]; David Altman MD Report Number: [id number]: Total DLP = 1453.00 mGy-cm EXAMINATION: CT [...] 06/08/25 1215 DD/ 1044 TD/TT: 06/08/25 1158 Air Battle Manager: [facility] External Provider IM CT PROCEDURES Final Result * CT Abdomen Pelvis w/o Contrast (06/07/2025 10:44 AM EDT) Anatomical Region Laterality Modality Body, Pelvis, Abdomen Computed T omography 06/07/2025 10:4 4 AM EDT Narrative 06/08/2025 12:28 PM EDT [address] [address] [address] Scan Report Signed Patient: Norberto Marquez MR#: [id number] : 1990 Acct:[id number] Age/Sex: 34 / M ADM Date: 06/06/25 Loc: [facility] 471-[address]: David Altman MD Ordering Physician: Allison Mejía Date of Service: 06/07/25 Procedure(s): CT abdomen pelvis wo IV con Accession Number(s): [id number] [facility]: [facility] Report Number: [id number]: Total DLP = 1453.00 mGy-cm EXAMINATION: CT [...] 06/08/25 1224 DD/ 1044 TD/TT: 06/08/25 1158 Air Battle Manager: Procedure Note Donotuseinterpreter, Image - 06/08/[address] [place] [address] [address] Scan Report Signed Patient: Zully Marquez#: [id number] : 1990Acct:[id number] Age/Sex: 34 / MADM Date: 06/06/25 Loc: [facility] 471-[address]: David Altman MD Ordering Physician: Allison Mejía Date of Service: 06/07/25 Procedure(s): CT abdomen pelvis wo IV con Accession Number(s): [id number] cc: [facility]; [facility] Report Number: [id number]: Total DLP = 1453.00 mGy-cm EXAMINATION: CT [...] 06/08/25 1224 DD/ 1044 TD/TT: 06/08/25 1158 Air Battle Manager: us [facility] External Provider IMG CT PROCEDURES Final Result * VASC US Lower Extremity Venous Duplex Bilateral (06/07/2025 8:50 AM EDT) 06/07/2025 8:50 AM EDT Narrative [facility] - 06/07/2025 9:16 AM EDT [address] [address] Ultrasound Report Signed Patient: Norberto Marquez MR#: [id number] : 1990 Acct:[id number] Age/Sex: 34 / M ADM Date: 06/06/25 Loc: [facility]: David Altman MD Ordering Physician: Allison Mejía [facility] Date of Service: 06/07/25 Procedure(s): US venous duplex LE BI Accession Number(s): [id number] cc: [facility]; [facility] EXAMINATION: US TRIPLEX LOWER EXTREMITY, BILATERAL [...] 06/07/25 0913 DD/ 0850 TD/TT: 06/07/25 0900 Air Battle Manager: Procedure Note Donotuseinterpreter, Image - 06/07/[address] [address] Ultrasound Report Signed Patient: Zully Marquez#: [id number] : 1990Acct:[id number] Age/Sex: 34 / MADM Date: 06/06/25 Loc: [facility] [place] [facility]: David Altman MD Ordering Physician: Allison Mejía [facility] Date of Service: 06/07/25 Procedure(s): US venous duplex LE BI Accession Number(s): [id number] cc: Allison Mejía [facility]; [facility] EXAMINATION: US TRIPLEX LOWER EXTREMITY, BILATERAL [...] 06/07/25 0913 DD/ 0850 TD/TT: 06/07/25 0900 Air Battle Manager: [facility] External Provider CV VASC ULAR PROCEDURES Final Result [facility] [address] [place] [phone] * XR Tibia Fibula 2 Views Left (06/07/2025 7:15 AM EDT) Anatomical Region Laterality Modality Lower Extremities, Lower Leg Left Rad iographic Imaging 06/07/2025 7:15 AM EDT Narrative 06/07/2025 8:29 AM EDT [address] [address] XRay Report Signed Patient: Norberto Marquez MR#: [id number] : 1990 Acct:[id number] Age/Sex: 34 / M ADM Date: 06/06/25 Loc: [facility]: David Altman MD [facility] Date of Service: 06/07/25 Procedure(s): XR tibia fibula LT 2V Accession Number(s): [id number] [facility] EXAMINATION: XR TIBIA AND FIBULA, LEFT [...] 06/07/25 0826 DD/ 0715 TD/TT: 06/07/25 0732 Air Battle Manager: Procedure Note Donotuseinterpreter, Image - 06/07/2025 [place] [address] XRay Report Signed Patient: Zully Marquez#: [id number] : 1990Acct:[id number] Age/Sex: 34 / MADM Date: 06/06/25 Loc: [facility] [place] [facility]: David Altman MD [facility]ing Phys[facility] [place] [facility] Date of Service: 06/07/25 Procedure(s): XR tibia fibula LT 2V Accession Number(s): [id number] cc: [facility]; [facility] EXAMINATION: XR TIBIA AND FIBULA, LEFT [...] 06/07/25 0826 DD/ 0715 TD/TT: 06/07/25 0732 Air Battle Manager: [facility] External Provider IMG XR PROCEDURES Final Result * CTA Chest PE Protocal (06/06/2025 11:03 PM EDT) Anatomical Region Laterality Modality Body, Chest Computed Tomogra phy 06/06/2025 11:0 3 PM EDT Narrative 06/06/2025 11:05 PM EDT [place] [address] CT Scan Report Signed Patient: Norberto Marquez MR#: [id number] : 1990 Acct:[id number] Age/Sex: 34 / M ADM Date: 06/06/25 Loc: HO.ED Attending Dr: Ordering Physician: Yanet Jang DO Date of Service: 06/06/25 Procedure(s): CT angio chest PE protocol Accession Number(s): [id number] cc: Yanet Jang DO; [facility] Report Number: [id number]: Total DLP = 421.00 mGy-cm CLINICAL HISTORY: elevated d-dimer, hx IVDA CT angiography chest with contrast. 3D Postprocessing. Comparison: CT/MT/SR - CT ANGIO CHEST PE PROTOCOL - [...] in OV> 06/06/252303 DD/ 02 TD/TT: 06/06/252302 Air Battle Manager: Procedure Note Donotuseinterpreter, Image - 06/06/[address] [address] [address] Scan Report Signed Patient: Zully Marquez#: [id number] : 1990Acct:[id number] Age/Sex: 34 / MADM Date: 06/06/25 Loc: .ED Attending Dr: Ordering Physician: Yanet Jang DO Date of Service: 06/06/25 Procedure(s): CT angio chest PE protocol Accession Number(s): [id number] cc: Yanet Jang DO; [facility] Report Number: [id number]: Total DLP = 421.00 mGy-cm CLINICAL HISTORY: elevated d-dimer, hx IVDA CT angiography chest with contrast. 3D Postprocessing. Comparison: CT/MT/SR - CT ANGIO CHEST PE PROTOCOL - [...] in OV> 06/06/252303 DD/ 02 TD/TT: 06/06/252302 Air Battle Manager: [facility] External Provider IMG CT PROCEDURES Edited Result - Final * (ABNORMAL) Urinalysis, Complete, with Reflex to Culture (06/06/2025 9:11 PM EDT) Only the most recent of2 resultswithin the time period is included. Color Urine Yellow [facility] Appearance Urine Clear [facility] PH 6.0 5.0 - 9.0 [facility] Glucose Urine UA Negative Negative mg/dL [facility] Urine Blood Trace(A) Negative [facility] Specific [place] - Urine 1.015 1.005 - 1.025 [facility] Urine Protein Negative Neg-Trace mg/dL [facility] Urine Ketones Negative Negative mg/dL [facility] Nitrite Urine Negative Negative [facility] Leukocyte Esterase Urine Negative Negative [facility] RBC Urine 6-10(A) 0 - 2 /HPF [facility] Urine WBC 0-5 0 - 5 /HPF [facility] Urine Squamous Epithelial Cell 0-2 0 - 2 /HPF [facility] Urine Bacteria None Seen None Seen [facility] Hyaline Casts, Urine 0-2 0 - 2 /LPF [facility] 06/06/2025 9:11 PM EDT 06/06/2025 9:15 PM EDT Narrative [facility] - 06/06/2025 10:06 PM EDT [id number], [employer] us Generic External Data Provider LAB URINE ORDERAB LES Final Result [facility] [address] [place] [phone] * D Dimer High Sensitivity (06/06/2025 3:18 PM EDT) Only the most recent of2 resultswithin the time period is included. D Dimer High Sensitivity 1,296 NG/ML [facility] Comment:D-DIMER HS REFERENCE RANGENote: Our assay [...] ORDERAB LES Final Result Performing Organization Address [facility] Co de Phone Number [facility] [address] [place] [phone] * (ABNORMAL) Prothrombin Time-INR (06/06/2025 3:18 PM EDT) Prothrombin Time 25.0(H) 10.9 - 12.4 SEC [facility] INTERNATIONAL NORM RATIO 2.2(H) 0.9 - 1.1 [facility] Comment:INTERNATIONAL NORMAL IZED RATIO (INR) REFERENCE [...] 3:18 PM EDT 06/06/2025 3:25 PM EDT [employer] External Data Provider LAB BLOOD ORDERAB LES Final Result Performing Organization Address [facility] de Phone Number [facility] [address] [place] [phone] * (ABNORMAL) Comprehensive Metabolic Panel (06/06/2025 3:18 PM EDT) Only the most recent of2 resultswithin the time period is included. Sodium 141 135 - 145 mmol/L [facility] Potassium 3.5 3.3 - 5.1 mmol/L [facility] Chloride 112(H) 96 - 108 mmol/L [facility] Carbon Dioxide 20(L) 22 - 29 mmol/L [facility] Anion Gap 13 12 - 20 [facility] Urea Nitrogen (BUN) 21(H) 9 - 16 mg/dL [facility] Creatinine, Serum 0.79 0.5 - 1.4 mg/dL [facility] Creatinine Clr Calc Pharmacy 116.6 [facility] Comment:eGFR (calculated fro m the MDRD study equation) and eCrCl(calculated from the Cockcroft-Gault equation) are based ondifferent parameters and may not yield comparable results.If eCrCl result is absurd, please check patient'sheight/weight. Estimated Glomerular Filt Rate >60 [facility] Comment:Chronic Kidney Disea se: Estimated GFR < 60 mL/min/1.38j1Jfupfp Kidney Disease: Estimated GFR < 15 mL/min/1.73m2 Glucose 89 60 - 115 mg/dL [facility] Calcium 8.3(L) 8.4 - 10.2 mg/dL [facility] Bilirubin, Total 1.0 0.0 - 1.0 mg/dL [facility] Aspartate Amino Transferase 41(H) 5 - 37 U/L [facility] Alanine Aminotransferase 25 0 - 40 U/L [facility] Total Protein 7.0 6.5 - 8.0 g/dL [facility] Albumin Level 3.4(L) 3.5 - 5.0 g/dL [facility] Alkaline Phosphatase 227(H) 39 - 117 U/L [facility] 06/06/2025 3:18 PM EDT 06/06/2025 3:25 PM EDT us Generic External Data Provider LAB BLOOD ORDERAB LES Final Result [facility] [address] [place] [phone] * Glucose, Whole Blood (06/04/2025 7:02 PM EDT) Only the most recent of2 resultswithin the time period is included. Glucose, Whole Blood 115 60 - 115 mg/dL [facility] Comment:METER #: [id number] 06/04/2025 7:02 PM EDT 06/04/2025 7:06 PM EDT us Generic External Data Provider LAB BLOOD ORDERAB LES Final Result Performing Organization Address City/[facility]/ZIP Co de Phone Number [facility] [address] [place] [phone] * Blood Culture (Second) (06/04/2025 4:39 PM EDT) Blood Venous blood specimen / Unknown 06/04/2025 4:39 PM EDT 06/04/2025 4:46 PM EDT Comment:Blood Narrative [facility] - 06/09/2025 6:47 PM EDT Blood Culture (Second) No growth after 5 days. Specimen Source: Blood Generic External Data Provider LAB MICROBIOLOGY - GENERAL ORDERABLES Final Result Performing Organization Address [facility] Co de Phone Number [facility] [address] [place] [phone] * (ABNORMAL) Creatine Kinase, Total (06/04/2025 4:39 PM EDT) Creatine Kinase Total 504(H) 38 - 174 U/L [facility] 06/04/2025 4:39 PM EDT 06/04/2025 4:46 PM EDT Generic External Data Provider LAB BLOOD ORDERAB LES Final Result Performing Organization Address [facility] Co de Phone Number [facility] [address] [place] [phone] * Lower Extremity Venous Duplex (06/04/2025 4:06 PM EDT) 06/04/2025 4:06 PM EDT Narrative [facility] - 06/05/2025 8:20 AM EDT [address] [address] Ultrasound Report Signed Patient: Norberto Marquez MR#: [id number] : 1990 Acct:[id number] Age/Sex: 34 / M ADM Date: 06/04/25 Loc: .ED Attending Dr: Ordering Physician: Fartun Farris Date of Service: 06/04/25 Procedure(s): US venous duplex LE LT Accession Number(s): [id number] cc: [facility]; Fartun Farris EXAMINATION: US LOWER EXTREMITY [...] 06/05/25 0817 DD/ 1606 TD/TT: 06/04/25 1612 Air Battle Manager: Procedure Note Donotravinter, Image - 06/05/[address] [address] Ultrasound Report Signed Patient: Marcelo MarquezR#: [id number] : 1990Acct:[id number] Age/Sex: 34 / MADM Date: 06/04/25 Loc: HO.ED Attending Dr: Ordering Physician: Fartun Farris Date of Service: 06/04/25 Procedure(s): US venous duplex LE LT Accession Number(s): [id number] cc: [facility]; Fartun Farris EXAMINATION: US LOWER EXTREMITY [...] Earl Miller MD 06/05/2025 08:17 AM EDT RP Dictated By: Earl Miller MD Signed By: <Electronically signed by Earl Miller MD in OV> 06/05/25 0817 DD/ 1606 TD/TT: 06/04/25 1612 Air Battle Manager: [facility] External Provider CV VASC ULAR PROCEDURES Final Result [facility] [address] [place] [phone] * Blood Culture (First) (06/04/2025 3:15 PM EDT) Blood Venous blood specimen / Unknown 06/04/2025 3:15 PM EDT 06/04/2025 3:26 PM EDT Comment:Blood Narrative [facility] - 06/09/2025 5:27 PM EDT Blood Culture (First) No growth after 5 days. Specimen Source: Blood Generic External Data Provider LAB MICROBIOLOGY - GENERAL ORDERABLES Final Result Performing Organization Address City/[facility]/ZIP Co de Phone Number [facility] [address] [place] [phone] * Lactic Acid (06/04/2025 3:15 PM EDT) Lactic Acid 1.4 0.5 - 2.0 mmol/L [facility] 06/04/2025 3:15 PM EDT 06/04/2025 3:26 PM EDT Generic External Data Provider LAB BLOOD ORDERAB LES Final Result Performing Organization Address [facility] de Phone Number [facility] [address] [place] [phone] * HIV-1/2 Antigen and Antibodies, Fourth Generation, with Reflexes (04/08/2024 11:52 AM EDT) Pathologist [facility] HIV AB/AG Nonreactive Nonreactive [facility] Comment:HIV-1 p24 Ag and/or HIV-1/HIV-2 Ab not detected.A test result that is nonreactive does not exclude thepossibility of exposure to or infection with HIV-1 and/orHIV-2. Nonreactive results in this assay for individualswith prior exposure to HIV-1 and/or HIV-2 may be due toantigen and antibody levels that are below the limit ofdetection of this assay.The [email or web address] HIV Ag/Ab Combo assay result andsupplemental assay results should be interpreted inconjunction with the patient's clinical presentation,history and other laboratory results. If the results areinconsistent with clinical evidence, additional testing issuggested to confirm the result. Blood Venous blood specimen / Unknown 04/08/2024 11:52 AM EDT 04/08/2024 12:58 PM EDT Alba So NP LAB BLOOD ORDERABLES Final Resu lt Performing Organization Address [facility]/ZIP Co de Phone Number [facility] [address] [place], [place] [phone] from Last 3 Months or Most Recently Relevant to Health Maintenance Insurance [employer] Care Teams Blood And Plasma Laboratory Assistant Relationship Specialty Start Date End Date Alba So NP [address] [place] [address] PCP - General Family Medicine 04/14/24
--- OUTSIDE RECORDS SUMMARY | 2025-07-31 22:59 | XMS_ITS | Encounter Summary ---
Author Organization [employer] Address [address] [place] [address] Care Team Providers Care Green End Man Name Role Phone Alba So NP Primary Care Provider [phone] Encounter Details Date Type Department Care Team ([facility] st Contact Info) Description 07/20/2025 Results Follow-Up [facility] [address] [place] [address] Alba So NP [address] [place] [address] XR Chest 2 Views Social History Tobacco Use Types Packs/Day Years [...] Description 09/25/2025 2:00 PM EST Office Visit [facility] [address] [place] [address] Alba So NP [address] [place] [address] documented as of this encounter Visit Diagnoses Not on filedocumented in this encounter Additional Health Concerns Assessment Noted Time PHQ-9 Depression Total Score: 18 024 11:56 AM EST documented as of this encounter Care Teams Green End Man Relationship Specialty Start Date End Date Alba So NP [address] [place] [address] PCP - General Family Medicine 04/14/24 documented as of this encounter
--- OUTSIDE RECORDS SUMMARY | 2025-07-31 22:59 | XMS_ITS | Encounter Summary ---
Author Organization [facility] Address [address] [place] [phone] Phone Care Team Providers Care Podiatric Medicine Doctor Name Role Phone Pcp, Unknown Primary Care Provider Unavailabl e Encounter Details Date Type Department Care Team (Late st Contact Info) Description 09/16/2023 Procedure Pass [facility] Endoscopy Admitting Dept Virtual Department [address] [place] [address] Social History Tobacco Use Types Packs/Day Years [...] on filedocumented in this encounter Care Teams Podiatric Medicine Doctor Relationship Specialty Start Date End Date Pcp, Unknown PCP - General 12/06/19 documented as of this encounter Additional Source Comments The information contained in this document represents components of the legal health record. It is not the complete legal health record.[facility]
--- OUTSIDE RECORDS SUMMARY | 2025-07-31 22:59 | XMS_ITS | Clinical Summary ---
Author Organization [facility] Address [address] [place] [phone] Phone Care Team Providers Care Top Knitter Name Role Phone Pcp, Unknown Primary Care [...] INFLUENZA VACCINE (#1) 2025 07/27/2020 COVID-19 VACCINE (1 - season) 2025 SCREENING FOR DIABETES 04/13/2026 [...] EDT) SODIUM 140 133 - 146 mmol/L [facility] POTASSIUM 4.2 3.3 - 5.1 mmol/L [facility] CHLORIDE 109(H) 96 - 108 mmol/L [facility] CO2 19(L) 21 - 35 mmol/L [facility] BUN 10 6 - 19 mg/dL [facility] CREATININE 0.80 0.5 - 1.5 mg/dL [facility] GLUCOSE 67(L) 70 - 99 mg/dL [facility] ALBUMIN 3.7(L) 3.9 - 4.8 g/dL [facility] TOTAL PROTEIN 6.7 6.5 - 8.0 g/dL [facility] CALCIUM 8.8 8.4 - 10.3 mg/dL [facility] ALKALINE PHOSPHATASE 137(H) 39 - 117 U/L [facility] TOTAL BILIRUBIN 1.3(H) 0.0 - 1.2 mg/dL [facility] AST 13 0 - 37 U/L [facility] ALT 6 0 - 40 U/L [facility] GLOBULIN 3.0 1 - 4.8 g/dL [facility] EGFR 119 >59 mL/min/1.7 3m2 [facility] Comment:Estimated glomerular filtration rate calculated using the CKD-EPI refit equation. ANION GAP 16 10 - 20 mmol/L [facility] Blood 04/13/2023 6:42 AM EDT 04/13/2023 11:39 AM EDT us Martinez Rendon MD LAB BLOOD ORDERABLES Final Resul t [facility] [address] [place] [address] from Last 3 Months or Most Recently Relevant to Health Maintenance Insurance C[employer] ACO C3 ACO C3 ACO C3 ACO C3 ACO C3 ACO Care Teams Top Knitter Relationship Specialty Start Date End Date Pcp, Unknown PCP - General 12/06/19 Additional Source Comments The information contained in this document represents components of the legal health record. It is not the complete legal health record.[facility]
--- NOTE | 2025-08-01 00:43 | ED.EXTPRO ---
HPI - Extremity Problem General Chief complaint: Extremity Problem Stated complaint: varicose vein busted open bleeding contro +thinner Time Seen by Provider: 07/31/25 22:39 History of Present Illness HPI Narrative: Patient is a 34-year-old male with a history of IV drug use in the past currently on blood thinners. On Eliquis. Presented today with having a varicose vein bleed. Patient claims he was just putting lotion on his legs he has not been using recreational drugs for the last 2-1/2 months. Noted the vein popped started bleeding on EMS arrival localized pressure was applied the bleeding stopped. Sent in for further evaluation Related Data Home Medications ?Medication ?Instructions ?Recorded ?Confirmed methadone 10 mg/mL oral 120 mg PO DAILY 09/13/24 06/07/25 concentrate (Methadone Intensol) albuterol sulfate 90 mcg/actuation 1 - 2 puff inhalation Q4-6H PRN 06/07/25 06/07/25 aerosol inhaler (Ventolin HFA) wheezing ferrous sulfate 325 mg (65 mg 325 mg PO Q OTHER DAY 06/07/25 06/07/25 iron) tablet furosemide 20 mg tablet 20 mg PO DAILY 06/07/25 06/07/25 gabapentin 100 mg capsule 200 mg PO TID 06/07/25 06/07/25 hydroxyzine pamoate 50 mg capsule 50 mg PO TID PRN Anxiety 06/07/25 06/07/25 sertraline 50 mg tablet 50 mg PO DAILY 06/07/25 06/07/25 trazodone 50 mg tablet 50 mg PO BEDTIME 06/07/25 06/07/25 Previous Rx's ?Medication ?Instructions ?Recorded apixaban 5 mg tablet (Eliquis) 5 mg PO BID 30 days #60 tabs 02/09/25 doxycycline monohydrate 100 mg 100 mg PO Q12H #8 caps 06/13/25 capsule prednisone 10 mg tablet See Taper PO DIRECTED #20 tabs 06/13/25 rifaximin 550 mg tablet (Xifaxan) 550 mg PO BID #180 tabs 06/13/25 albuterol sulfate 90 mcg/actuation 2 inh inhalation Q4-6H PRN 07/19/25 breath activated powder inhaler shortness of breath or wheezing #1 ea prednisone 10 mg tablet 10 mg PO BID #10 tabs 07/19/25 Allergies Allergy/AdvReac Type Severity Reaction Status Date / Time No Known Allergies (No Known Allergy Verified 07/31/25 22:48 Allergies*) Review of Systems Review of Systems: No dizziness no nausea no vomiting no systemic complaints PMFSH Past Medical History Attestation statement: The following information was validated with the patient. Medical History Hepatic cirrhosis Mitral valve vegetation Heart failure with mildly reduced ejection fraction Prosthetic valve malfunction Active intravenous drug use Pulmonary embolism without acute cor pulmonale Tricuspid valve vegetation Endocarditis Hypersensitivity pneumonitis Hemoptysis Rhabdomyolysis Anemia LUCERO (acute kidney injury) Polysubstance abuse Opioid use disorder Opioid use disorder, severe, dependence Substance abuse MSSA bacteremia Bacteremia Bacteremia Right heart failure Steatosis, liver Tricuspid valve stenosis Anasarca HCV (hepatitis C virus) Endocarditis Pulmonary embolism Surgical History S/P tricuspid valve replacement History of tricuspid valve replacement with bioprosthetic valve Social History Social History Household Members: Other Household Members Other:: intermediate Housing: Homeless Do you presently have visiting nurse or other home services: No Alcohol intake: former Patient Tobacco Use Status: Current everyday Tobacco user Tobacco use type: Cigarette Cigarette Packs Per Day: 0.5 Cigarettes Per Day: 10.0 Years Smoked: 10 Smoked in Last 30 Days: No Second Hand Smoke Exposure: No Use of substances other than those prescribed or required for medical reasons: No Substance Use Type: IV Drugs Substance Use Frequency: Chronic Longstanding Last Used Substance: Weeks (ago) Any prior treatment program specific to substance use: Yes Advance Directives: Yes Advance Directives on File: Yes Advance Directives Date on File: 04/16/21 service: No Current occupational status: unemployed Physical Exam Exam: Exam: Appearance: Alert. Oriented X3. No acute distress. Eyes: Pupils equal, round and reactive to light. ENT: Pharynx normal. Neck: Normal inspection. Neck supple. No lymph nodes noted. No crepitus CVS: Normal heart rate and rhythm. Pulses normal. Normal S1 and S2 Respiratory: No respiratory distress. Breath sounds normal. No Wheezing. No rales Abdomen: Soft and nontender. No rigidity. No distention. good BS x4 Skin: Positive varicose vein. Still bleeding. Out of the left calf area. Extremities: No lower extremity edema. Neurovascular intact to all extremities. No Lacerations. No Rash Neuro: Oriented X 3. No motor deficit. No sensory deficit. Moving all extermities. No slurred speech Vital Signs: Vital Signs: Last Vital Signs Temp 97.7 F 07/31/25 22:47 Pulse 80 07/31/25 22:47 Resp 18 07/31/25 22:47 BP 112/66 07/31/25 22:47 Pulse Ox 93 07/31/25 22:47 O2 Del Method Room Air 07/31/25 22:47 BMI result Body Mass Index 28.5 Medical Decision Making Medical Decision Making [facility] Narrative: 1% lidocaine with epinephrine was used. I put in 3 mattress sutures using 4-0 gut. The bleeding stopped. There was no complications. Differential Diagnosis Differential Diagnoses: The differential diagnosis associated with the presentation includes Bleeding varicose vein Admission/Observation Consideration of admission/observation: Escalation of care including admission/observation considered No need to admit bleeding controlled Lab Data [facility] Lab Attestation statement: I reviewed the patient's lab results. External Record Review External record reviewed: Office record (Outpatient Cardiology record reviewed) Chronic Conditions History of being on blood thinners. History of bacteremia history of heart valve problems history of varicose vein Social Determinants Patient?s care significantly limited by Social Determinants of Health including: Problems related to primary support group Discharge Plan Discharge Clinical Impression: Varicose vein of leg Patient Disposition: Home, Self-Care Instructions: Venous Insufficiency (DC) Additional Instructions: Please keep the area clean uncontrolled bleeding returned. We used absorbable sutures today he do not need to have the sutures removed Prescriptions: No Action methadone [Methadone Intensol] 10 mg/mL Concentrate 120 mg PO DAILY Eliquis 5 mg tablet 5 mg PO BID 30 Days Qty: 60 0RF trazodone 50 mg tablet 50 mg PO BEDTIME hydroxyzine pamoate 50 mg capsule 50 mg PO TID PRN (Reason: Anxiety) ferrous sulfate 325 mg (65 mg iron) tablet 325 mg PO Q OTHER DAY furosemide 20 mg tablet 20 mg PO DAILY gabapentin 100 mg capsule 200 mg PO TID albuterol sulfate [Ventolin HFA] 90 mcg/actuation HFA aerosol inhaler 1 - 2 puff inhalation Q4-6H PRN (Reason: wheezing) sertraline 50 mg tablet 50 mg PO DAILY doxycycline monohydrate 100 mg Capsule 100 mg PO Q12H Qty: 8 0RF Xifaxan 550 mg Tablet 550 mg PO BID Qty: 180 0RF prednisone 10 mg tablet See Taper PO DIRECTED Qty: 20 0RF Taper: Prednisone 40 mg daily for 3 Days and 0 Hour 30 mg daily for 3 Days and 0 Hour 20 mg daily for 3 Days and 0 Hour 10 mg daily for 3 Days and 0 Hour Rx Instructions: see taper instructions prednisone 10 mg tablet 10 mg PO BID Qty: 10 0RF albuterol sulfate 90 mcg/actuation aerosol powdr breath activated 2 inh inhalation Q4-6H PRN (Reason: shortness of breath or wheezing) Qty: 1 0RF Referrals: [place],[facility] [Primary Care Provider, Medical] - 3 days Print Language: Barbadian
[2025-08-01] MEDS: Lidocaine HCl 1%/Epi 1:100,000 10 ML VIAL SUBCUT (02:26)
[2025-08-01 02:29] VITALS: BP 112/66; PULSE 80; RESP 18; TEMP 36.5; O2SAT 93
== END 2025-08-01 02:30 | disposition home or self-care (01) ==
PROVIDERS: Emergency Provider Emergency Medicine Emergency Medical Services
DX: I83.892 Varicose veins of left lower extremity with other complications (principal); Z86.711 Personal history of pulmonary embolism; Z95.2 Presence of prosthetic heart valve; Z79.01 Long term (current) use of anticoagulants
CPT/HCPCS: 12001; 99284; J2004

== ENCOUNTER 2025-08-11 14:37 | Outpatient (REF) | payer MEDICAID, SELFPAY ==
--- NOTE | ~2025-08-11 | XR_ITS ---
EXAMINATION: XR FINGER, LEFT CLINICAL INFORMATION: left 2nd digit pain/deformity x 1y COMPARISON: [facility] x-ray October 2023 TECHNIQUE: Three views of the left second finger. FINDINGS: There is slight ulnar subluxation at the PIP joint of the second finger of the middle phalanx with respect to the proximal phalanx. There is severe erosive arthritis at the PIP joint with bone loss of the head of the proximal phalanx. There is surrounding soft tissue swelling. This appears increased from October 2023 exam. Bone alignment is otherwise normal. No fracture or dislocation. Joint spaces and soft tissues are otherwise normal. 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 Differential would include septic, psoriatic and inflammatory arthritis. Electronically signed by: Monica Richmond MD 08/11/2025 03:03 PM EDT
[2025-08-11 16:16] LABS: NRBC Abs Auto 0.000 X10*3/uL (0.0-0.012); NRBC Pct Auto 0.0 /100WBC (0.0-0.2); SCAN SMEAR FLAG 1
[2025-08-11 16:18] LABS: Hematocrit 38.1 % (42.0-52.0); Hemoglobin 12.0 g/dl (14.0-18.0); Imm Gran Abs Auto 0.29 X10*3/uL (0.00-0.03); Imm Gran Pct Auto 2.2 % (0.0-0.4); Lymphocytes Absolute Auto 2.7 X10*3/uL (1.2-4.9); MANUAL DIFF FLAG SCAN; Mean Corpuscular HGB Conc 31.5 g/dl (31.0-36.0); Mean Corpuscular Hemoglobin 24.7 pg (27.0-33.0); Mean Corpuscular Volume 78.4 fL (80.0-98.0); Platelet Count 144 X10*3/uL (160-400); Red Blood Count 4.86 X10*6/uL (4.60-5.80); White Blood Count 13.4 X10*3/uL (4.8-10.8)
--- OUTSIDE RECORDS SUMMARY | 2025-08-11 16:24 | XMS_ITS | Clinical Summary ---
Author Organization [facility] Address [address] [place] [phone] Phone Care Team Providers Care Pressurization Mechanic Name Role Phone Pcp, Unknown Primary Care [...] EDT) SODIUM 140 133 - 146 mmol/L [facility] POTASSIUM 4.2 3.3 - 5.1 mmol/L [facility] CHLORIDE 109(H) 96 - 108 mmol/L [facility] CO2 19(L) 21 - 35 mmol/L [facility] BUN 10 6 - 19 mg/dL [facility] CREATININE 0.80 0.5 - 1.5 mg/dL [facility] GLUCOSE 67(L) 70 - 99 mg/dL [facility] ALBUMIN 3.7(L) 3.9 - 4.8 g/dL [facility] TOTAL PROTEIN 6.7 6.5 - 8.0 g/dL [facility] CALCIUM 8.8 8.4 - 10.3 mg/dL [facility] ALKALINE PHOSPHATASE 137(H) 39 - 117 U/L [facility] TOTAL BILIRUBIN 1.3(H) 0.0 - 1.2 mg/dL [facility] AST 13 0 - 37 U/L [facility] ALT 6 0 - 40 U/L [facility] GLOBULIN 3.0 1 - 4.8 g/dL [facility] EGFR 119 >59 mL/min/1.7 3m2 [facility] Comment:Estimated glomerular filtration rate calculated using the CKD-EPI refit equation. ANION GAP 16 10 - 20 mmol/L [facility] Blood 04/13/2023 6:42 AM EDT 04/13/2023 11:39 AM EDT us Martinez Rendon MD LAB BLOOD ORDERABLES Final Resul t [facility] [address] [place] [address] from Last 3 Months or Most Recently Relevant to Health Maintenance Insurance C3 ACO C3 ACO C3 ACO C3 ACO C3 ACO C3 ACO Care Teams Pressurization Mechanic Relationship Specialty Start Date End Date Pcp, Unknown PCP - General 12/06/19 Additional Source Comments The information contained in this document represents components of the legal health record. It is not the complete legal health record.[facility]
--- OUTSIDE RECORDS SUMMARY | 2025-08-11 16:24 | XMS_ITS | Encounter Summary ---
Author Organization [facility] Address [address] [place] [phone] Phone Care Team Providers Care Project Builder Name Role Phone Pcp, Unknown Primary Care Provider Unavailabl e Encounter Details Date Type Department Care Team (Late st Contact Info) Description 10/20/2023 Transcribe Orders Virtual Department [address] [place] [address] Lucy Best PA [address] [place], [place] [phone] [email or web address] Anemia, unspecified type (Primary Dx) Social History [...] Primary documented in this encounter Care Teams Project Builder Relationship Specialty Start Date End Date Pcp, Unknown PCP - General 12/06/19 documented as of this encounter Additional Source Comments The information contained in this document represents components of the legal health record. It is not the complete legal health record.[facility]
--- OUTSIDE RECORDS SUMMARY | 2025-08-11 16:24 | XMS_ITS | Encounter Summary ---
Author Organization [facility] Address [address] [place] [phone] Phone Care Team Providers Care Public Service Administrator Name Role Phone Pcp, Unknown Primary Care Provider Unavailabl e Encounter Details Date Type Department Care Team (Late st Contact Info) Description 04/08/2023 Transcribe Orders [facility] Specimen Processing [address] [place] [address] Martinez Rendon MD [address] [facility] [place] [place] [address] [email or web address] Congestive heart failure, unspecified HF chronicity, unspecified [...] 7:23 PM EDT Aisha Zelaya, RN * Williams Suicide Severity Rating Scale (Screener/Recent Self-Report) Question [...] EDT) SODIUM 140 133 - 146 mmol/L [facility] POTASSIUM 3.8 3.3 - 5.1 mmol/L [facility] CHLORIDE 108 96 - 108 mmol/L [facility] CO2 18(L) 21 - 35 mmol/L [facility] BUN 9 6 - 19 mg/dL [facility] CREATININE 0.70 0.5 - 1.5 mg/dL [facility] GLUCOSE 78 70 - 99 mg/dL [facility] ALBUMIN 3.7(L) 3.9 - 4.8 g/dL [facility] TOTAL PROTEIN 6.9 6.5 - 8.0 g/dL [facility] CALCIUM 8.9 8.4 - 10.3 mg/dL [facility] ALKALINE PHOSPHATASE 144(H) 39 - 117 U/L [facility] TOTAL BILIRUBIN 1.5(H) 0.0 - 1.2 mg/dL [facility] AST 13 0 - 37 U/L [facility] ALT 7 0 - 40 U/L [facility] GLOBULIN 3.2 1 - 4.8 g/dL [facility] EGFR >120 >59 mL/min/1.7 3m2 [facility] Comment:Estimated glomerular filtration rate calculated using the CKD-EPI refit equation. ANION GAP 18 10 - 20 mmol/L [facility] 04/08/2023 5:55 AM EDT 04/08/2023 8:22 AM EDT us Martinez Rendon MD LAB BLOOD ORDERABLES Final Resul t [address] [address] documented in this encounter Visit Diagnoses Diagnosis Congestive heart failure, unspecified HF chronicity, unspecified heart failure type- Primary documented in this encounter Care Teams Public Service Administrator Relationship Specialty Start Date End Date Pcp, Unknown PCP - General 12/06/19 documented as of this encounter Additional Source Comments The information contained in this document represents components of the legal health record. It is not the complete legal health record.[facility]
--- OUTSIDE RECORDS SUMMARY | 2025-08-11 16:24 | XMS_ITS | Encounter Summary ---
Author Organization [facility] Address [address] [place] [phone] Phone Care Team Providers Care Relay Operator Name Role Phone Pcp, Unknown Primary Care Provider Unavailabl e Encounter Details Date Type Department Care Team (Late st Contact Info) Description 09/16/2023 Procedure Pass [facility] Endoscopy Admitting Dept Virtual Department [address] [place] [address] Social History Tobacco Use Types Packs/Day Years [...] on filedocumented in this encounter Care Teams Relay Operator Relationship Specialty Start Date End Date Pcp, Unknown PCP - General 12/06/19 documented as of this encounter Additional Source Comments The information contained in this document represents components of the legal health record. It is not the complete legal health record.[facility]
--- OUTSIDE RECORDS SUMMARY | 2025-08-11 16:24 | XMS_ITS | Encounter Summary ---
Author Organization [facility] Address [address] [place] [phone] Phone Care Team Providers Care Floriculture Professor Name Role Phone Pcp, Unknown Primary Care Provider Unavailabl e Encounter Details Date Type Department Care Team (Late st Contact Info) Description 10/28/2023 Procedure Pass [facility] Endoscopy Admitting Dept Virtual Department [address] [place] [address] Social History Tobacco Use Types Packs/Day Years [...] on filedocumented in this encounter Care Teams Floriculture Professor Relationship Specialty Start Date End Date Pcp, Unknown PCP - General 12/06/19 documented as of this encounter Additional Source Comments The information contained in this document represents components of the legal health record. It is not the complete legal health record.[facility]
--- OUTSIDE RECORDS SUMMARY | 2025-08-11 16:24 | XMS_ITS | Clinical Summary ---
Author Organization [facility] Address [address] [place] [address], [place] [address] Care Team Providers Care Director Of Community Life Name Role Phone Unavailable Primary Care Provider [...] age to complete this topic Insurance [place]
--- OUTSIDE RECORDS SUMMARY | 2025-08-11 16:24 | XMS_ITS | Encounter Summary ---
Author Organization [facility] Address [address] [facility] [address] [place] [address] Phone Care Team Providers Care Upsetter Helper Name Role Phone Pcp, Unknown Primary Care Provider Unavailabl e Encounter Details Date Type Department Care Team (Late st Contact Info) Description 02/14/2020 Transcribe Orders [facility] Specimen Processing [address] [place] [address] Donell Villalobos, DO [address] [facility] [place] [address] [place] [address] [email or web address] Encounter for health examination of prisoner (Primary [...] ALKALINE PHOSPHATASE 138(H) 39 - 117 U/L [facility] TOTAL BILIRUBIN 0.5 0.0 - 1.2 mg/dL [facility] DIRECT BILIRUBIN 0.2 0 - 0.3 mg/dL [facility] Bilirubin (Indirect) 0.3 0 - 1.5 mg/dL [facility] AST 114(H) 0 - 37 U/L [facility] ALT 235(H) 0 - 40 U/L [facility] TOTAL PROTEIN 6.8 6.5 - 8.0 g/dL [facility] ALBUMIN 4.1 3.9 - 4.8 g/dL [facility] GLOBULIN 2.7 1 - 4.8 g/dL [facility] A/G Ratio 1.52 1.00 - 4.80 RATIO [facility] Blood 02/15/2020 10:0 4 AM EDT 02/15/2020 11:32 AM EDT us Donell A Bigda DO LAB BLOOD ORDERABLES Final Resul t Performing Organization Address City/State/[facility] Co de Phone Number [facility] [address] [place] [address] documented in this encounter Visit Diagnoses Diagnosis Encounter for health examination of prisoner- Primary documented in this encounter Additional Health Concerns Infection Onset Date Last Indicated Resolved Time CoV-Risk 03/27/2023 03/27/2023 04/07/2023 1:22 AM EDT documented as of this encounter Care Teams Upsetter Helper Relationship Specialty Start Date End Date Pcp, Unknown PCP - General 12/06/19 documented as of this encounter Additional Source Comments The information contained in this document represents components of the legal health record. It is not the complete legal health record.[facility]
[2025-08-11 16:37] LABS: PLT ABN DIST 1
[2025-08-11 18:41] LABS: Uric Acid 9.2 mg/dL (3.4-7.0)
[2025-08-12 03:51] LABS: HBc Num1 0.18 S/CO (0.00-0.79); Hepatitis A Antibody IgM 0.26 Index (0-0.79); ~Hepatitis A Antibody IgM Nonreactive (Nonreactive)
[2025-08-12 04:28] LABS: HBS Num1 38.26 mIU/mL (0-7.99); HBsAGNum1 0.44 S/CO (0.00-0.99); Hepatitis B Surface Antigen Negative (Negative); ~HepC Num1 14.40 S/CO (0.00-0.79); ~Hepatitis B Surface Antibody REACTIVE (Nonreactive); ~Hepatitis C Antibody Reactive (Nonreactive)
== END 2025-08-11 14:38 | disposition home or self-care (01) ==
LOC: HO.HHCX 14:37
PROVIDERS: Visit Provider Internal Medicine
DX: M79.645 Pain in left finger(s) (principal); M65.942 Unspecified synovitis and tenosynovitis, left hand
CPT/HCPCS: 36415; 73140; 84550; 85025; 85652; 86038; 86140; 86431; 86704; 86706; 86709; 86803; 87340

== ENCOUNTER → 2025-08-11 14:37 | Outpatient (BNV) | payer MEDICAID, SELFPAY | PROVIDERS: Visit Provider Radiology Diagnostic Radiology | DX: M15.4 Erosive (osteo)arthritis (principal) | CPT/HCPCS: 73140 ==

== ENCOUNTER 2025-08-11 15:11 | Outpatient (REF) | payer MEDICAID, SELFPAY ==
--- OUTSIDE RECORDS SUMMARY | 2025-08-07 10:20 | XMS_ITS | Encounter Summary ---
Author Organization [employer] Address [address] [place] [address] Care Team Providers Care Marine Engine Driver Name Role Phone Alba So GENEVA Primary Care Provider [phone] Reason for Visit * Reason Comments Headache Sore Throat Encounter Details Date Type Department Care Team ([facility] Contact Info) Description 08/07/2025 10:20 AM EDT Office Visit [facility] [address] [place] [address] Isamar Adams MD [address] [place] [address] Acute bronchitis, unspecified organism (Primary Dx) Social History Tobacco Use Types [...] Sign Reading Time Taken Comments Blood Pressure 156/89 08/07/2025 9:45 AM EDT Pulse 115 08/07/2025 9:45 AM EDT Temperature 36.4 C (97.5 F) 08/07/2025 9:45 AM EDT Respiratory Rate 20 08/07/2025 9:45 AM EDT Oxygen Saturation 95% 08/07/2025 9:45 AM EDT Inhaled Oxygen Concentration - - Weight 85 kg (187 lb 6.4 oz) 08/07/2025 9:45 AM EDT Height 167.6 cm (5' 6 ) 08/07/2025 9:45 AM EDT Body Mass Index 30.25 08/07/2025 9:45 AM EDT documented in this encounter Progress Notes * Isamar Adams MD - 08/07/2025 10:20 AM EDT Subjective Patient ID: Norberto Marquez is a 34 y.o. male who presents for Headache and Sore Throat. URI This is a new problem. The current episode started yesterday. The problem has been unchanged. Therehas been no fever. Associated symptoms include congestion, headaches and wheezing. Pertinent negatives include no chest pain, coughing, diarrhea, dysuria, ear pain, joint swelling, nausea, neck pain,plugged ear sensation, rash, rhinorrhea, sinus pain, sneezing, sore throat, swollen glands or vomiting. He has tried inhaler use for the symptoms. The treatment provided mild relief. Pt just took his methadone Review of Systems HENT: Positive for congestion. Negative for ear pain, rhinorrhea, sinus pain, sneezing and sore throat. Respiratory: Positive for wheezing. Negative for cough. Cardiovascular: Negative for chest pain. Gastrointestinal: Negative for diarrhea, nausea and vomiting. Genitourinary: Negative for dysuria. Musculoskeletal: Negative for neck pain. Skin: Negative for rash. Neurological: Positive for headaches. Objective Physical Exam Constitutional: Appearance: Normal appearance. Cardiovascular: Rate and Rhythm: Normal rate and regular rhythm. Pulmonary: Effort: Pulmonary effort is normal. Breath sounds: Decreased breath sounds and wheezing present. Neurological: General: No focal deficit present. Mental Status: He is alert. Psychiatric: Mood and Affect: Mood normal. Behavior: Behavior normal. Assessment/Plan Diagnoses and all orders for this visit: Acute bronchitis, unspecified organism Comments: Started on Prednisone 40mg daily for 5 days with Zithromax Pt refuses to go to ER for further care however agrees to go ary if symptoms get worse Advised RN to do wellness check ary Orders: - POCT rapid strep A manually resulted - POCT Rapid COVID Ag Other orders - predniSONE (Deltasone) 20 MG tablet; Take 2 tablets (40 mg) by mouth Once per day for 5 days. - azithromycin (Zithromax) 250 MG tablet; Take 2 tabs day and then 1 tab daily documented in this encounter Plan of Treatment Upcoming Encounters Date Type Department Care Team (Late st Contact Info) Description 09/25/2025 2:00 PM EST Office Visit [facility] [address] [place] [address] Alba So NP [address] [place] [address] documented as of this encounter Procedures Procedure Name Priority Date/Time Associated Diagnosis Comments POCT RAPID COVID ANTIGEN Routine 08/07/2025 9:54 AM EDT Acute bronchitis, unspecified organism POCT RAPID STREP A Routine 08/07/2025 9: 54 AM EDT Acute bronchitis, unspecified organism documented in this encounter Results * POCT Rapid COVID Ag (08/07/2025 9:54 AM EDT) Rapid COVID Ag Negative Swab 08/07/2025 9:54 AM EDT us Isamar Adams MD POINT OF CARE TEST ENTER/EDIT OR DERABLES Final Result * POCT rapid strep A manually resulted (08/07/2025 9:54 AM EDT) Rapid Strep A Screen Negative Negative, None Detected Swab 08/07/2025 9:54 AM EDT us Isamar Adams MD POINT OF CARE TEST ENTER/EDIT OR DERABLES Final Result documented in this encounter Visit Diagnoses Diagnosis Acute bronchitis, unspecified organism- Primary documented in this encounter Additional Health Concerns Assessment Noted Time PHQ-9 Depression Total Score: 18 024 11:56 AM EST documented as of this encounter Care Teams Marine Engine Driver Relationship Specialty Start Date End Date Alba So NP [address] [place] [id number] PCP - General Family Medicine 04/14/24 documented as of this encounter
--- OUTSIDE RECORDS SUMMARY | 2025-08-11 14:20 | XMS_ITS | Encounter Summary ---
Author Organization [employer] Address [address] [place] [address] Care Team Providers Care Print Support Specialist Name Role Phone Alba So GENEVA Primary Care Provider [phone] Reason for Referral * Consultation (Routine) - Pending Review Specialty Diagnoses / Procedures Referred By Merle calvillo Referred To Contact Orthopaedic Surgery Diagnoses Finger pain, left Tenosynovitis of finger Daniela Vaughn MD [address] [place] [phone] Phone: tel: fax: Referral ID Status Reason Start Date Expiration Date Visits Requested Visits Authorized [id number] Pending Review Specialty Services Required 08/11/2026 1 1 Encounter Details Date Type Department Care Team ([facility] st Contact Info) Description 08/11/2025 2:20 PM EDT Office Visit [facility] [address] [place] [address] [phone] Daniela Vaughn MD [address] [place] [address] [phone] Finger pain, left (Primary Dx); Varicose veins of left lower extremity with inflammation; Tenosynovitis of finger Social History Tobacco Use Types Packs/Day Years [...] Sign Reading Time Taken Comments Blood Pressure 140/90 08/11/2025 2:17 PM EDT Pulse 71 08/11/2025 2:17 PM EDT Temperature 37 C (98.6 F) 08/11/2025 2:17 PM EDT Respiratory Rate 20 08/11/2025 2:17 PM EDT Oxygen Saturation - - Inhaled Oxygen Concentration - - Weight 85 kg (187 lb 6.4 oz) 08/11/2025 2:17 PM EDT Height 170.2 cm (5' 7 ) 08/11/2025 2:17 PM EDT Body Mass Index 29.35 08/11/2025 2:17 PM EDT documented in this encounter Progress Notes * Daniela Vaughn MD - 08/11/2025 2:20 PM EDT SUBJECTIVE: Norberto Marquez is a 34 y.o. year old male who presents for [facility]/left finger pain. Denies recent illness, injury, or hospitalization. Acute Concerns: Co worsening pain on left finger over the past year and finger began to bend. In the past week, pain and deformity worsened, with rapid curvature developing over three days. Reports significant pain currently. Denies issues with other fingers. He denies fever, chills or recent trauma Left Leg Varicose Vein Approximately a week and a half ago, left leg varicose vein ruptured, requiring emergency room visit and suture. He is due to see vascular surgeon on 09/04/2025, he reports wearing compression stockings. Social History Social History Narrative Not on file Problem List[1] Family History[2] Review of Systems OBJECTIVE: Vitals: 08/11/25 1417 BP: (!) 140/90 Pulse: 71 Resp: 20 Temp: 98.6 ??F (37 ??C) Physical Exam Constitutional: Appearance: Normal appearance. HENT: Right Ear: Tympanic membrane and ear canal normal. Left Ear: Tympanic membrane and ear canal normal. Mouth/Throat: Mouth: Mucous membranes are moist. Pharynx: No oropharyngeal exudate or posterior oropharyngeal erythema. Eyes: Pupils: Pupils are equal, round, and reactive to light. Cardiovascular: Rate and Rhythm: Normal rate and regular rhythm. Heart sounds: No murmur heard. Comments: Bilateral varicose veins with chronic stasis dermatitis changes distally on LEs. Examination of the left leg shows ulceration associated with varicosities, no discharge, area is clean and dry with scab tissue Pulmonary: Breath sounds: Normal breath sounds. No wheezing. Abdominal: General: Bowel sounds are normal. Palpations: Abdomen is soft. Tenderness: There is no abdominal tenderness. Musculoskeletal: General: Normal range of motion. Left hand: Swelling (MCP joint), deformity (MCP joint) and tenderness (MCP joint) present. Cervical back: Normal range of motion. No tenderness. Skin: General: Skin is warm. Neurological: General: No focal deficit present. Mental Status: He is alert and oriented to person, place, and time. Psychiatric: Mood and Affect: Mood normal. Problem List Items Addressed This Visit Finger pain, left - Primary -Ordered x-ray of the left finger. -Referral to orthopedics for further evaluation. -Will sadia tape the finger to reduce discomfort. - Take Tylenol as needed Relevant Orders XR Fingers 2+ Views Left Varicose veins of left lower extremity with inflammation - Venous stasis ulceration, dressing will be applied and patient to continue doing dressings daily and follow-up with vascular surgery next month - Clean wound and apply dressing. -Patient advised to wear compression stockings. -Confirmed upcoming vascular surgery appointment on September 04, 2025. Follow Up: Medications Ordered Prior to Encounter[3] [1] Patient Active Problem List Diagnosis Alcohol dependence (HCC) Heroin dependence (CMS/HCC) (HCC) Ascites Bacteremia Bacterial arthritis (CMS/HCC) (HCC) Cirrhosis of liver (CMS/HCC) (HCC) Cocaine dependence (HCC) Hepatosplenomegaly Infective endocarditis of tricuspid valve Osteomyelitis (HCC) Septic pulmonary embolism (CMS/HCC) (HCC) Tobacco dependence syndrome Viral hepatitis C Anemia, chronic disease Symptomatic anemia Hx of pulmonary embolus Hemorrhage of varicose veins of right lower extremity Abnormal ECG Prolonged QT interval Active intravenous drug use Opioid use disorder Acute respiratory failure (HCC) LUCERO (acute kidney injury) Anasarca Back pain Chest pain Elevated troponin 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 Endocarditis History of endocarditis Hyperbilirubinemia Hypertension Hypokalemia Hypomagnesemia Hypoxia Drug abuse, IV (CMS/HCC) (HCC) Intravenous drug user Leukocytosis Osteomyelitis of left hand (CMS/HCC) (HCC) Osteomyelitis of finger of right hand (CMS/HCC) (HCC) Pneumonia Polysubstance abuse (HCC) 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 Steatosis, liver Shortness of breath Sepsis (CMS/HCC) (HCC) S/P tricuspid valve replacement Right heart failure (HCC) Heart failure with mildly reduced ejection fraction (HCC) Rhabdomyolysis Hemorrhage of varicose veins of lower extremity, bilateral Hypervolemia Bilateral lower extremity edema Cellulitis of left lower extremity Drug intoxication (CMS/HCC) (HCC) Influenza Left leg pain Open wound of left lower leg Respiratory syncytial virus (RSV) Anemia of chronic disease Anemia Cellulitis of left leg Abdominal pain Bleeding from varicose veins of left lower extremity Varicose veins of left lower extremity with inflammation Drug abuse (HCC) Opioid use disorder, severe, dependence (CMS/HCC) (HCC) History of pulmonary embolism Pulmonary embolism (HCC) Chronic hepatitis C (CMS/HCC) (HCC) HCV (hepatitis C virus) Portal hypertension (CMS/HCC) (HCC) Venous stasis dermatitis of both lower extremities History of positive hepatitis C Finger pain, left [2] No family history on file. [3] Current Outpatient Medications on File Prior to Visit Medication Sig Dispense Refill azithromycin (Zithromax) 250 MG tablet Take 2 tabs day and then 1 tab daily 6 tablet 0 betamethasone valerate (Valisone) 0.1 % ointment Apply topically if needed in the morning and at bedtime (dryness). 45 g 2 Blood Pressure kit 1 each 2 times daily. 1 kit 0 Eliquis 5 MG tablet Take 1 tablet (5 mg) by mouth 2 times daily. 60 tablet 2 ferrous sulfate 325 (65 Fe) MG tablet Take 1 tablet by mouth every other day. furosemide (Lasix) 20 MG tablet Take 1 tablet (20 mg) by mouth Once per day. 90 tablet 0 gabapentin (Neurontin) 100 MG capsule Take 200 mg by mouth 3 times daily. hydrOXYzine pamoate (Vistaril) 50 MG capsule Take 1 capsule by mouth if needed in the morning, at noon, and at bedtime for anxiety. magnesium oxide (Mag-Ox) 400 MG tablet Take [...] spray PLEASE SEE ATTACHED FOR DETAILED DIRECTIONS predniSONE (Deltasone) 20 MG tablet Take 2 tablets (40 mg) by mouth Once per day for 5 days. 10 tablet 0 sertraline (Zoloft) 50 MG tablet Take 1 tablet by mouth Once per day. spironolactone (Aldactone) 25 MG tablet TAKE 2 TABLETS BY MOUTH EVERY DAY DIRECTED 30 tablet 0 thiamine (Vitamin B-1) 100 MG tablet Take 1 tablet by mouth Once per day. traZODone (Desyrel) 50 MG tablet Take 1 tablet by mouth at bedtime. Ventolin HFA 108 (90 Base) MCG/ACT inhaler Inhale 1-2 puffs Every 4-6 hours as needed for wheezing. No current facility-administered medications on file prior to visit. documented in this encounter Miscellaneous Notes * Assessment & Plan Note - Daniela Vaughn MD - 08/11/2025 2:35 PM EDT Associated Problem(s): Varicose veins of left lower extremity with inflammation - Venous stasis ulceration, dressing will be applied and patient to continue doing dressings daily and follow-up with vascular surgery next month - Clean wound and apply dressing. -Patient advised to wear compression stockings. -Confirmed upcoming vascular surgery appointment on September 04, 2025. * Assessment & Plan Note - Daniela Vaughn MD - 08/11/2025 2:33 PM EDT Associated Problem(s): Finger pain, left -Ordered x-ray of the left finger. -Referral to orthopedics for further evaluation. -Will sadia tape the finger to reduce discomfort. - Take Tylenol as needed documented in this encounter Plan of Treatment Upcoming Encounters Date Type Department Care Team (Late st Contact Info) Description 09/25/2025 2:00 PM EST Office Visit [facility] [address] [place] [address] Alba So NP [address] [place] [address] Scheduled Orders Name Type Priority Associated Diagnoses Orde r Schedule DANIELA Screen,IFA, with Reflex to Titer and Pattern Lab Routine Tenosynovitis of finger Expected: 08/11/2025 (Approximate), Expires: 08/11/2026 Sed Rate by Modified [facility] Lab Routine Tenosynovitis of finger Expected: 08/11/2025 (Approximate), Expires: 08/11/2026 C-reactive Protein Lab Routine Tenosynovitis of finger Expected: 08/11/2025 (Approximate), Expires: 08/11/2026 Rheumatoid Factor Lab Routine Tenosynovitis of finger Expected: 08/11/2025, Expires: 08/11/2026 Uric acid Lab Routine Tenosynovitis of finger Expected: 08/11/2025 (Approximate), Expires: 08/11/2026 Hepatitis Panel, General Lab Routine Tenosynovitis of finger Expected: 08/11/2025 (Approximate), Expires: 08/11/2026 Scheduled Referrals Name Type Priority Associated Diagnoses Order Schedule Referral to Orthopaedic Surgery Outpatient Referral Routine Finger pain, left Tenosynovitis of finger Expected: 08/11/2025 (Approximate), Expires: 08/11/2026 documented as of this encounter Procedures Procedure Name Priority Date/Time Associated Diagnosis Comments CBC WITH AUTO DIFFERENTIAL Routine 08/11/2025 3:17 PM EDT Tenosynovitis of finger XR FINGERS 2+ VIEWS LEFT Routine 08/11/2025 2:58 PM EDT Finger pain, left documented in this encounter Results * (ABNORMAL) CBC auto differential (08/11/2025 3:17 PM EDT) White Blood Count 13.4(H) 4.8 - 10.8 X10*3/uL [facility] Red Blood Count 4.86 4.60 - 5.80 X10*6/uL [facility] Hemoglobin 12.0(L) 14.0 - 18.0 g/dl [facility] Hematocrit 38.1(L) 42.0 - 52.0 % [facility] Mean Corpuscular Volume 78.4(L) 80.0 - 98.0 fL [facility] Mean Corpuscular Hemoglobin 24.7(L) 27.0 - 33.0 pg [facility] Mean Corpuscular HGB Conc 31.5 31.0 - 36.0 g/dl [facility] Red Cell Distribution Width 25.9(H) 11.0 - 16.0 % [facility] Platelet Count 144(L) 160 - 400 X10*3/uL [facility] Neutrophils Percent Auto 61.5 45 - 73 % [facility] Imm Gran Pct Auto 2.2(H) 0.0 - 0.4 % [facility] Lymphocytes Percent Auto 19.8(L) 20 - 40 % [facility] Monocytes Percent Auto 12.3(H) 2 - 11 % [facility] Eosinophils Percent Auto 3.6 0 - 4 % [facility] Basophils Percent Auto 0.6 0 - 2 % [facility] NRBC Pct Auto 0.0 0.0 - 0.2 /100WBC [facility] Neutrophils Absolute Auto 8.3 2.0 - 8.3 x10*3/uL [facility] Imm Gran Abs Auto 0.29(H) 0.00 - 0.03 X10*3/uL [facility] Lymphocytes Absolute Auto 2.7 1.2 - 4.9 X10*3/uL [facility] Monocytes Absolute Auto 1.7(H) 0.1 - 1.2 X10*3/uL [facility] Eosinophils Absolute Auto 0.5(H) 0.0 - 0.4 X10*3/uL [facility] Basophils Absolute Auto 0.1 0.0 - 0.2 X10*3/uL [facility] NRBC Abs Auto 0.000 0.0 - 0.012 X10*3/uL [facility] Blood Venous blood specimen / Unknown 08/11/2025 3:17 PM EDT 08/11/2025 4:07 PM EDT us Daniela Vaughn MD LAB BLOOD ORDERABLES Thierno nicole Result - Final [facility] [address] [place] [address] [phone] * XR Fingers 2+ Views Left (08/11/2025 2:58 PM EDT) Anatomical Region Laterality Modality Upper Extremities, Fingers Left [facility] 08/11/2025 2:58 PM EDT Narrative 08/11/2025 3:06 PM EDT [address] [address] XRay Report Signed Patient: Norberto Marquez MR#: [id number] : 1990 Acct:[id number] Age/Sex: 34 / M ADM Date: 08/11/25 [facility]: Daniela Vaughn MD Ordering Physician: Daniela Vaughn MD Date of Service: 08/11/25 Procedure(s): XR finger LT min 2V Accession Number(s): [id number] cc: Daniela Vaughn MD Reason for Exam: left 2nd digit pain/deformity x 1y EXAMINATION: XR FINGER, LEFT CLINICAL INFORMATION: left 2nd digit pain/deformity x 1y COMPARISON: [facility] x-ray October 2023 TECHNIQUE: Three views of the left second finger. FINDINGS: There is slight ulnar subluxation at the PIP joint of the second finger of the middle phalanx with respect to the proximal phalanx. There is severe erosive arthritis at the PIP joint with bone loss of the head of the proximal phalanx. There is surrounding soft tissue swelling. This appears increased from October 2023 exam. Bone alignment is otherwise normal. No fracture or dislocation. Joint spaces and soft tissues are otherwise normal. 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 Differential would include septic, psoriatic and inflammatory arthritis. Electronically signed by: Monica Richmond MD 08/11/2025 03:03 PM EDT Dictated By: Monica Richmond MD Signed By: <Electronically signed by Monica Richmond MD in OV> 08/11/25 1503 DD/ 1458 TD/TT: 08/11/25 1448 Staffing And Scheduling Coordinator: MICHAEL Procedure Note Donotuseinterpreter, Image - 08/11/[address] [address] XRay Report Signed Patient: Zully Marquez#: [id number] : 1990Acct:[id number] Age/Sex: 34 / MADM Date: 08/11/25 Loc: [facility] Attending Dr: Daniela Vaughn MD Ordering Physician: Daniela Vaughn MD Date of Service: 08/11/25 Procedure(s): XR finger LT min 2V Accession Number(s): [id number] cc: Daniela Vaughn MD Reason for Exam: left 2nd digit pain/deformity x 1y EXAMINATION: XR FINGER, LEFT CLINICAL INFORMATION: left 2nd digit pain/deformity x 1y COMPARISON: [facility] x-ray October 2023 TECHNIQUE: Three views of the left second finger. FINDINGS: There is slight ulnar subluxation at the PIP joint of the second finger of the middle phalanx with respect to the proximal phalanx. There is severe erosive arthritis at the PIP joint with bone loss of the head of the proximal phalanx. There is surrounding soft tissue swelling. This appears increased from October 2023 exam. Bone alignment is otherwise normal. No fracture or dislocation. Joint spaces and soft tissues are otherwise normal. 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 Differential would include septic, psoriatic and inflammatory arthritis. Electronically signed by: Monica Richmond MD 08/11/2025 03:03 PM EDT Dictated By: Monica Richmond MD Signed By: <Electronically signed by Monica Richmond MD in [facility]> 08/11/25 1503 DD/ 1458 TD/TT: 08/11/25 1448 Staffing And Scheduling Coordinator: MICHAEL us Daniela Vaughn MD IMG XR PROCEDURES Final Result documented in this encounter Visit Diagnoses Diagnosis Finger pain, left- Primary Pain in soft tissues of limb Varicose veins of left lower extremity with inflammation Tenosynovitis of finger Other tenosynovitis of hand and wrist documented in this encounter Additional Health Concerns Assessment Noted Time PHQ-9 Depression Total Score: 18 10/18/ 024 11:56 AM EST documented as of this encounter Care Teams Print Support Specialist Relationship Specialty Start Date End Date Alba So NP [address] [place] [address] PCP - General Family Medicine 04/14/24 documented as of this encounter
--- OUTSIDE RECORDS SUMMARY | 2025-08-11 16:47 | XMS_ITS | Encounter Summary ---
Author Organization [employer] Address [address] [facility] 7t [place] [address] Care Team Providers Care Operators Teacher Name Role Phone Mack Jin WHITTEN Primary Care Provider Unavail able Nirali Lott Primary Care Provider [phone] Alba So NP Primary Care Provider [phone] Encounter Details Date Type Department Care Team ([facility] Contact Info) Description 06/08/2023 Orders Only [facility] CHC MED & PEDS [address] [place], [place] [phone] Nirali Lott FNP [address] [place] [address] Chronic hepatitis C without hepatic coma (CMS/HCC) [...] Care Team ([facility] Contact Info) Description 09/25/2025 2:00 PM EST Office Visit [facility] MEDICINE [address] [place] [address] Alba So NP [address] [place] [address] documented as of this encounter Visit Diagnoses Diagnosis Chronic hepatitis C without hepatic coma (HCC)- Primary documented in this encounter Additional Health Concerns Assessment Noted Time PHQ-9 Depression Total Score: 0 06/03/20 10:05 AM EDT documented as of this encounter Care Teams Operators Teacher Relationship Specialty Start Date End Date Jin Mack AGNP PCP - General Family Medicine 04/24/23 07/08/23 Nirali Lott FNP [address] [place] [address] PCP - General Family Medicine 07/09/23 04/13/24 Alba So NP [address] [place] [address] PCP - General Family Medicine 04/14/24 documented as of this encounter
--- OUTSIDE RECORDS SUMMARY | 2025-08-11 16:47 | XMS_ITS | Encounter Summary ---
Author Organization [employer] Address [address] [facility] 7t [place] [address] Care Team Providers Care Naturopathic Oncology Provider Name Role Phone Alba So NP Primary Care Provider [phone] Encounter Details Date Type Department Care Team (Late st Contact Info) Description 07/07/2025 Results Follow-Up [facility] MED[facility] [address] [place] [address] Alba So NP [address] [place] [address] CBC auto differential, Complete Blood Count Manual [...] Description 09/25/2025 2:00 PM EST Office Visit [facility] [address] [place] [address] Alba So NP [address] [place] [address] documented as of this encounter Visit Diagnoses Not on filedocumented in this encounter Additional Health Concerns Assessment Noted Time PHQ-9 Depression Total Score: 18 024 11:56 AM EST documented as of this encounter Care Teams Naturopathic Oncology Provider Relationship Specialty Start Date End Date Alba So NP [address] [place] [address] PCP - General Family Medicine 04/14/24 documented as of this encounter
--- OUTSIDE RECORDS SUMMARY | 2025-08-11 16:47 | XMS_ITS | Encounter Summary ---
Author Organization [employer] Address [address] [facility] [address] 7t [place] [address] Care Team Providers Care Therapy Technician Name Role Phone Alba oS GENEVA Primary Care Provider [phone] Encounter Details Date Type Department Care Team (Latest Contact Info) Description 08/11/2025 Travel Social History Tobacco Use Types Packs/Day [...] with others, in a hotel, in a group home, living outside on the street, on [...] 2:00 PM EST Office Visit [facility] [address] [place] [address] Alba So NP [address] [place] [address] documented as of this encounter Visit Diagnoses Not on filedocumented in this encounter Additional Health Concerns Assessment Noted Time PHQ-9 Depression Total Score: 18 024 11:56 AM EST documented as of this encounter Care Teams Therapy Technician Relationship Specialty Start Date End Date Alba So NP [address] [place] [address] PCP - General Family Medicine 04/14/24 documented as of this encounter
--- OUTSIDE RECORDS SUMMARY | 2025-08-11 16:47 | XMS_ITS | Encounter Summary ---
Author Organization [employer] Address [address] [facility] [address]t [place] [address] Care Team Providers Care Inventory Specialist Name Role Phone Nirali Lott Primary Care Provider [phone] Alba So NP Primary Care Provider [phone] Encounter Details Date Type Department Care Team (Late st Contact Info) Description 10/27/2023 Orders Only [facility] [address] [place] [address] Nirali Lott FNP [address] [place] [address] Infective endocarditis of tricuspid valve (Primary Dx) [...] Description 09/25/2025 2:00 PM EST Office Visit [facility] [address] [place], [place] [phone] Alba So NP [address] [place] [address] documented as of this encounter Procedures Procedure Name Priority Date/Time Associated Diagnosis Comments CT LIVER 3 PHASE Routine 10/27/2023 4:35 PM EST documented in this encounter Results * CT liver 3 phase (10/27/2023 4:35 PM EST) Anatomical Region Laterality Modality Liver Computed Tomogra phy 10/27/2023 4:35 PM EST Narrative 11/02/2023 11:06 AM EST [address] [address] [address] Scan Report Signed Patient: Norberto Marquez MR#: [id number] : 1990 Acct:[id number] Age/Sex: 33 / M ADM Date: 10/27/23 Loc: HO.CT Attending Dr: Randa Chisholm MD Ordering Physician: Randa Chisholm MD Date of Service: 10/27/23 Procedure(s): CT liver 3 phase Accession Number(s): [id number] cc: Randa Chisholm MD; [facility] EXAMINATION: CT ABDOMEN without and [...] in OV> 11/02/23 1101 DD/ 1635 TD/TT: Wireless Communications Engineer: SS Procedure Note Donotuseinterpreter, Image - 11/03/[address] [place] [address] [address] Scan Report Signed Patient: Zully Marquez#: [id number] : 1990Acct:[id number] Age/Sex: 33 / MADM Date: 10/27/23 Loc: HO.CT Attending Dr: Randa Chisholm MD Ordering Physician: Randa Chisholm MD Date of Service: 10/27/23 Procedure(s): CT liver 3 phase Accession Number(s): [id number] cc: Randa Chisholm MD; [facility] EXAMINATION: CT ABDOMEN without and [...] in OV> 11/02/23 1101 DD/ 1635 TD/TT: Wireless Communications Engineer: ELIEZER [facility] External Provider IMG CT PROCEDURES Final Result documented in this encounter Visit Diagnoses Diagnosis Infective endocarditis of tricuspid valve- Primary documented in this encounter Additional Health Concerns Assessment Noted Time PHQ-9 Depression Total Score: 0 06/03/20 10:05 AM EDT documented as of this encounter Care Teams Inventory Specialist Relationship Specialty Start Date End Date Nirali Lott FNP [address] [place] [address] PCP - General Family Medicine 07/09/23 04/13/24 Alba So NP [address] [place] [address] PCP - General Family Medicine 04/14/24 documented as of this encounter
--- OUTSIDE RECORDS SUMMARY | 2025-08-11 16:47 | XMS_ITS | Encounter Summary ---
Author Organization [employer] Address 75 [facility] 7t [place] [address] Care Team Providers Care Director Of Extension Work Name Role Phone Nirali LottP Primary Care Provider [phone] Alba So NP Primary Care Provider [phone] Reason for Visit * Reason Onset Date Comments PT1 10/02/2023 Encounter Details Date Type Department Care Team ([facility] st Contact Info) Description 10/02/2023 Telephone [facility] [address] [place] [address] Nirali Lott FNP [address] [place], [place] [phone] PT1 Social History Tobacco Use Types Packs/Day [...] 10/02/2023 11:00 AM EST PT-1 Request Number [id number] is Pending * Telephone Encounter - Christine Mak - 10/02/2023 10:32 AM EST Tc alanna Cruz with [facility] requesting PT1 transportation. Date: 10/20/2022 Time: 10:15 Visits: 12 a year Address: [address] [place] [address] [facility] Chair: n/a Distribution A Class Lineman Needed: n/a documented in this encounter Plan of Treatment Upcoming Encounters Date Type Department Care Team (Late st Contact Info) Description 09/25/2025 2:00 PM EST Office Visit [facility] [address] [place] [address] Alba So NP 230 [place] [address] documented as of this encounter Visit Diagnoses Not on filedocumented in this encounter Additional Health Concerns Assessment Noted Time PHQ-9 Depression Total Score: 0 06/03/20 23 10:05 AM EDT documented as of this encounter Care Teams Director Of Extension Work Relationship Specialty Start Date End Date Nirali Lott FNP [address] [place] [address] PCP - General Family Medicine 07/09/23 04/13/24 Alba So NP [address] [place] [phone] PCP - General Family Medicine 04/14/24 documented as of this encounter
--- OUTSIDE RECORDS SUMMARY | 2025-08-11 16:47 | XMS_ITS | Encounter Summary ---
Author Organization [employer] Address 75 [facility] 7t [place] [address] Care Team Providers Care Microbiology Analyst Name Role Phone Alba So GENEVA Primary Care Provider [phone] Encounter Details Date Type Department Care Team (Late st Contact Info) Description 04/26/2024 Orders Only [facility] [address] [place] [address] Varun Givens, PharmD [address] [place] [address] Social History Tobacco Use Types Packs/Day Years [...] 09/25/2025 2:00 PM EST Office Visit [facility] [address] [place] [address] Alba So NP [address] [place] [address] documented as of this encounter Visit Diagnoses Not on filedocumented in this encounter Additional Health Concerns Assessment Noted Time PHQ-9 Depression Total Score: 0 06/03/20 23 10:05 AM EDT documented as of this encounter Care Teams Microbiology Analyst Relationship Specialty Start Date End Date Alba So NP [address] [place] [address] PCP - General Family Medicine 04/14/24 documented as of this encounter
--- OUTSIDE RECORDS SUMMARY | 2025-08-11 16:47 | XMS_ITS | Encounter Summary ---
Author Organization [employer] Address 75 [facility] 7t [place] [address] Care Team Providers Care Mine Superintendent Name Role Phone Alba So NP Primary Care Provider [phone] Encounter Details Date Type Department Care Team (Late st Contact Info) Description 12/21/2024 Orders Only [facility] [address] [place] [address] Alba So NP [address] [place] [address] Social History Tobacco Use Types Packs/Day Years [...] Description 09/25/2025 2:00 PM EST Office Visit [facility] [address] [place] [address] Alba So NP [address] [place] [address] documented as of this encounter Visit Diagnoses Not on filedocumented in this encounter Additional Health Concerns Assessment Noted Time PHQ-9 Depression Total Score: 18 024 11:56 AM EST documented as of this encounter Care Teams Mine Superintendent Relationship Specialty Start Date End Date Alba So NP [address] [place] [phone] PCP - General Family Medicine 04/14/24 documented as of this encounter
--- OUTSIDE RECORDS SUMMARY | 2025-08-11 16:47 | XMS_ITS | Encounter Summary ---
Author Organization [employer] Address 75 [facility] 7t [place] [address] Care Team Providers Care Driveway Attendant Name Role Phone Nirali LottP Primary Care Provider [phone] Alba So NP Primary Care Provider [phone] Reason for Visit * Reason Onset Date Comments PT1 08/05/2023 Encounter Details Date Type Department Care Team ([facility] st Contact Info) Description 08/05/2023 Telephone [facility] [address] [place] [address] Nirali Lott FNP [address] [place], [place] [phone] PT1 Social History Tobacco Use Types Packs/Day [...] 08/05/2023 1:12 PM EDT PT-1 Request Number [id number] is Pending * Telephone Encounter - Sage Telles - 08/05/2023 12:36 PM EDT Tc alanna Manley with [facility] Partner requesting a PT1: Name of facility: [facility] Specialty: Consult possible liver transplant Location: [address] [place] [address] Date: 08/12/2023 Time: 11:00 am fax: n/a wheelchair: no Equip Maint Eng: no All future appt's documented in this encounter Plan of Treatment Upcoming Encounters Date Type Department Care Team (Late st Contact Info) Description 09/25/2025 2:00 PM EST Office Visit [facility] [address] [place] [address] Alba So NP [address] [place] [address] documented as of this encounter Visit Diagnoses Not on filedocumented in this encounter Additional Health Concerns Assessment Noted Time PHQ-9 Depression Total Score: 0 06/03/20 10:05 AM EDT documented as of this encounter Care Teams Driveway Attendant Relationship Specialty Start Date End Date Nirali Lott FNP [address] [place] [address] PCP - General Family Medicine 07/09/23 04/13/24 Alba So NP [address] [place] [address] PCP - General Family Medicine 04/14/24 documented as of this encounter
--- OUTSIDE RECORDS SUMMARY | 2025-08-11 16:47 | XMS_ITS | Encounter Summary ---
Author Organization [employer] Address 75 [facility] 7t [place] [address] Care Team Providers Care Regulator Tester Name Role Phone Alba So NP Primary Care Provider [phone] Encounter Details Date Type Department Care Team ([facility] st Contact Info) Description 07/20/2025 Results Follow-Up [facility] [address] [place] [address] Alba So NP [address] [place] [address] XR Chest 2 Views Social History Tobacco [...] 09/25/2025 2:00 PM EST Office Visit [facility] [address] [place] [address] Alba So NP [address] [place] [address] documented as of this encounter Visit Diagnoses Not on filedocumented in this encounter Additional Health Concerns Assessment Noted Time PHQ-9 Depression Total Score: 18 024 11:56 AM EST documented as of this encounter Care Teams Regulator Tester Relationship Specialty Start Date End Date Alba So NP [address] [place] [address] PCP - General Family Medicine 04/14/24 documented as of this encounter
--- OUTSIDE RECORDS SUMMARY | 2025-08-11 16:47 | XMS_ITS | Encounter Summary ---
Author Organization [employer] Address 75 [facility] 7t [place] [address] Care Team Providers Care Technical Developer Name Role Phone Nirali LottP Primary Care Provider [phone] Alba So NP Primary Care Provider [phone] Reason for Visit * Reason Onset Date Comments Referral 10/16/2023 Encounter Details Date Type Department Care Team ([facility] st Contact Info) Description 10/16/2023 Telephone [facility] [address] [place] [address] Nirali Lott FNP [address] [place] [address] Referral Social History Tobacco Use Types Packs/Day [...] - 10/16/2023 10:22 AM EST Tc from [facility] never received referral. documented in this encounter Plan of Treatment Upcoming Encounters Date Type Department Care Team (Late st Contact Info) Description 09/25/2025 2:00 PM EST Office Visit [facility] MED[facility] [address] [place] [address] Alba So NP [address] [place] [address] documented as of this encounter Visit Diagnoses Not on filedocumented in this encounter Additional Health Concerns Assessment Noted Time PHQ-9 Depression Total Score: 0 06/03/20 23 10:05 AM EDT documented as of this encounter Care Teams Technical Developer Relationship Specialty Start Date End Date Nirali Lott FNP [address] [place] [address] PCP - General Family Medicine 07/09/23 04/13/24 Alba So NP [address] [place] [address] PCP - General Family Medicine 04/14/24 documented as of this encounter
--- OUTSIDE RECORDS SUMMARY | 2025-08-11 16:47 | XMS_ITS | Encounter Summary ---
Author Organization [employer] Address 75 [facility] 7t [place] [address] Care Team Providers Care Aviation Warfare Systems Operator Name Role Phone Alba So GENEVA Primary Care Provider [phone] Encounter Details Date Type Department Care Team (Late st Contact Info) Description 08/11/2025 Orders Only [facility] [address] [place] [address] Daniela Vaughn MD [address] [place] [address] Social History Tobacco Use Types Packs/Day Years [...] Description 09/25/2025 2:00 PM EST Office Visit [facility] [address] [place] [address] Alba So NP [address] [place] [address] documented as of this encounter Procedures Procedure Name Priority Date/Time Associated Diagnosis Comments SLIDE REVIEW Routine 08/11/2025 3:17 PM EDT documented in this encounter Results * Slide Review (08/11/2025 3:17 PM EDT) Slide Review VERIFIED [facility] 08/11/2025 3:17 PM EDT 08/11/2025 4:07 PM EDT us Daniela Vaughn MD LAB BLOOD ORDERABLES Fin al Result [facility] [address] [place] [phone] [phone] documented in this encounter Visit Diagnoses Not on filedocumented in this encounter Additional Health Concerns Assessment Noted Time PHQ-9 Depression Total Score: 18 024 11:56 AM EST documented as of this encounter Care Teams Aviation Warfare Systems Operator Relationship Specialty Start Date End Date Alba So NP [address] [place] [address] PCP - General Family Medicine 04/14/24 documented as of this encounter
--- OUTSIDE RECORDS SUMMARY | 2025-08-11 16:47 | XMS_ITS | Encounter Summary ---
Author Organization [employer] Address [address] [facility] [address] [place] [address] Care Team Providers Care Client Architect Name Role Phone GrahamFabriziomarty Harris ADMINISTRATION DEAN Primary Care Provider Madisyn Jin [place] Primary Care Provider Unavail Nirali Diaz ADMINISTRATION DEAN Primary Care Provider [phone] Alba So NP Primary Care Provider [phone] Encounter Details Date Type Department Care Team (Late st Contact Info) Description 01/05/2023 Orders Only [facility] [address] [place] [address] Nohemi Greene FNP Social History Tobacco Use [...] empyema, recurrent bacteremia and endocarditis,was admitted to [facility] on 07/16/22 for evaluation of chest pain [...] mom and was in [place] and wasdischarged October 23, now lives at [...] PM EST Office Visit [facility] [address] [place] [address] Alba So NP [address] [place], [place] [phone] documented as of this encounter Procedures Procedure [...] EDT 04/13/2023 3:00 PM EDT Comment:Blood Narrative [facility] - 04/18/2023 5:00 PM EDT Blood Culture (Second) No growth after 5 days. Specimen Source: Blood [facility] Exter nal Provider LAB MICROBIOLOGY - GENERAL ORDERABLES Final Result Performing Organization Address [facility]/ZIP Co de Phone Number [facility] [address] [place] [address] [phone] * Blood Culture (First) (04/13/2023 2:20 PM EDT) Blood 04/13/2023 2:20 PM EDT 04/13/2023 3:00 PM EDT Comment:Blood Narrative [facility] - 04/18/2023 5:00 PM EDT Blood Culture (First) No growth after 5 days. Specimen Source: Blood [facility] Exter nal Provider LAB MICROBIOLOGY - GENERAL ORDERABLES Final Result Performing Organization Address [facility]/ZIP Co de Phone Number [facility] [address] [place] [phone] * (ABNORMAL) Urinalysis, Complete, with Reflex to Culture (03/16/2023 6:50 PM EDT) Color Urine Dark Yellow [facility] Appearance Urine Clear [facility] PH 6.5 5.0 - 9.0 [facility] Glucose Urine UA Negative Negative mg/dL [facility] Urine Blood Small (1+)(A) Negative [facility] Specific [place] - Urine 1.015 1.005 - 1.025 [facility] Urine Protein 100 (2+)(A) Neg-Trace mg/dL [facility] Urine Ketones Negative Negative mg/dL [facility] Nitrite Urine Positive(A) Negative [facility] Leukocyte Esterase Urine Small (1+)(A) Negative [facility] RBC Urine >20(A) 0 - 2 /HPF [facility] Urine WBC 6-10(A) 0 - 5 /HPF [facility] Urine Squamous Epithelial Cell 0-2 0 - 2 /HPF [facility] Urine Bacteria None Seen None Seen [facility] Hyaline Casts, Urine 0-2 0 - 2 /LPF [facility] 03/16/2023 6:50 PM EDT 03/16/2023 7:08 PM EDT Narrative [facility] - 03/16/2023 7:57 PM EDT Urine, Clean Catch us [facility] External Provider LAB URI NE ORDERABLES Final Result [facility] [address] [place] [phone] * (ABNORMAL) CBC auto differential (03/16/2023 5:18 PM EDT) White Blood Count 11.0(H) 4.8 - 10.8 X10*3/uL [facility] Red Blood Count 4.07(L) 4.60 - 5.80 X10*6/uL [facility] Hemoglobin 9.7(L) 14.0 - 18.0 g/dl [facility] Hematocrit 30.7(L) 42.0 - 52.0 % [facility] Mean Corpuscular Volume 75.4(L) 80.0 - 98.0 fL [facility] Mean Corpuscular Hemoglobin 23.8(L) 27.0 - 33.0 pg [facility] Mean Corpuscular HGB Conc 31.6 31.0 - 36.0 g/dl [facility] Red Cell Distribution Width 31.5(H) 11.0 - 16.0 % [facility] Platelet Count 597(H) 160 - 400 X10*3/uL [facility] Mean Platelet Volume 9.8 9.4 - 12.4 fL [facility] Neutrophils Percent Auto 60.7 45 - 73 % [facility] Imm Gran Pct Auto 2.0(H) 0.0 - 0.4 % [facility] Lymphocytes Percent Auto 24.7 20 - 40 % [facility] Monocytes Percent Auto 10.5 2 - 11 % [facility] Eosinophils Percent Auto 1.1 0 - 4 % [facility] Basophils Percent Auto 1.0 0 - 2 % [facility] NRBC Pct Auto 0.0 0.0 - 0.2 /100WBC [facility] Neutrophils Absolute Auto 6.7 2.0 - 8.3 x10*3/uL [facility] Imm Gran Abs Auto 0.22(H) 0.00 - 0.03 X10*3/uL [facility] Lymphocytes Absolute Auto 2.7 1.2 - 4.9 X10*3/uL [facility] Monocytes Absolute Auto 1.2 0.1 - 1.2 X10*3/uL [facility] Eosinophils Absolute Auto 0.1 0.0 - 0.4 X10*3/uL [facility] Basophils Absolute Auto 0.1 0.0 - 0.2 X10*3/uL [facility] NRBC Abs Auto 0.000 0.0 - 0.012 X10*3/uL [facility] 03/16/2023 5:18 PM EDT 03/16/2023 5:24 PM EDT us [facility] External Provider LAB BLO OD ORDERABLES Final Result [facility] [address] [place] [phone] * High Sensitivity Troponin I (03/16/2023 5:18 PM EDT) TROPONIN I HIGH SENSITIVITY 11.4 <3.5 - 35.0 ng/L [facility] Comment:The Coley high sens itivity Troponin-I results should beused in conjunction with other diagnostic information suchas ECG, clinical observations and information, and patientsymptoms to aid in the diagnosis of [place]. 03/16/2023 5:18 PM EDT 03/16/2023 5:24 PM EDT [facility] External Provider LAB BLO OD ORDERABLES Final Result Performing Organization Address [facility] Co de Phone Number [facility] [address] [place] [phone] * (ABNORMAL) B Type Natriuretic Peptide (BNP) (03/16/2023 5:18 PM EDT) B Type Natriuretic Peptide 378(H) <100 pg/mL [facility] Comment:For those patients w ho are being treated with Natrecor(nesiritide, recombinant BNP), BNP testing should beperformed at least two hours post treatment in order toensure that only endogenous levels of BNP are detected. 03/16/2023 5:18 PM EDT 03/16/2023 5:24 PM EDT [facility] External Provider LAB BLO OD ORDERABLES Final Result Performing Organization Address [facility] Co de Phone Number [facility] [address] [place] [phone] * (ABNORMAL) Lipase (03/16/2023 5:18 PM EDT) Lipase 168(H) 8 - 78 U/L [facility] 03/16/2023 5:18 PM EDT 03/16/2023 5:24 PM EDT [facility] External Provider LAB BLO OD ORDERABLES Final Result Performing Organization Address [facility] Co de Phone Number [facility] [address] [place] [phone] * (ABNORMAL) Basic Metabolic Panel (03/16/2023 5:18 PM EDT) Sodium 139 135 - 145 mmol/L [facility] Potassium 3.0(L) 3.3 - 5.1 mmol/L [facility] Chloride 106 96 - 108 mmol/L [facility] Carbon Dioxide 20(L) 22 - 29 mmol/L [facility] Anion Gap 16 12 - 20 [facility] Urea Nitrogen (BUN) 8(L) 9 - 16 mg/dL [facility] Creatinine, Serum 0.74 0.5 - 1.4 mg/dL [facility] Creatinine Clr Calc Pharmacy 131.5 [facility] Comment:eGFR (calculated fro m the MDRD study equation) and eCrCl(calculated from the Cockcroft-Gault equation) are based ondifferent parameters and may not yield comparable results.If eCrCl result is absurd, please check patient'sheight/weight. Estimated Glomerular Filt Rate >60 [facility] Comment:NOTE: For -Am erican individuals, multiply the result by 1.210.Chronic Kidney Disease: Estimated GFR < 60 mL/min/1.39b1Rxaxgu Kidney Disease: Estimated GFR < 15 mL/min/1.73m2 Glucose 84 60 - 115 mg/dL [facility] Calcium 9.4 8.4 - 10.2 mg/dL [facility] 03/16/2023 5:18 PM EDT 03/16/2023 5:24 PM EDT us [facility] External Provider LAB BLO OD ORDERABLES Final Result [facility] [address] [place] [phone] [phone] * (ABNORMAL) Hepatic Function Panel (03/16/2023 5:18 PM EDT) Bilirubin, Total 5.9(H) 0.0 - 1.0 mg/dL [facility] Bilirubin, Direct 3.5(H) 0.0 - 0.5 mg/dL [facility] Aspartate Amino Transferase 19 5 - 37 U/L [facility] Alanine Aminotransferase 13 0 - 40 U/L [facility] Total Protein 7.7 6.5 - 8.0 g/dL [facility] Albumin Level 3.9 3.5 - 5.0 g/dL [facility] Alkaline Phosphatase 154(H) 39 - 117 U/L [facility] 03/16/2023 5:18 PM EDT 03/16/2023 5:24 PM EDT [facility] External Provider LAB BLO OD ORDERABLES Final Result Performing Organization Address [facility] Co de Phone Number [facility] [address] [place] [phone] * Lactic Acid (03/16/2023 5:18 PM EDT) Lactic Acid 1.7 0.5 - 2.0 mmol/L [facility] 03/16/2023 5:18 PM EDT 03/16/2023 5:24 PM EDT [facility] External Provider LAB BLO OD ORDERABLES Final Result Performing Organization Address [facility] Co de Phone Number [facility] [address] [place] [phone] documented in this encounter Visit Diagnoses Not on filedocumented in this encounter Care Teams Client Architect Relationship Specialty Start Date End Date Megan Stevenson FNP PCP - General Family Medicine 03/27/22 04/23/23 Jin Mack AGNP PCP - General Family Medicine 04/24/23 07/08/23 Nirali Lott FNP [address] [place] [address] PCP - General Family Medicine 07/09/23 04/13/24 Alba So NP [address] [place] [address] PCP - General Family Medicine 04/14/24 documented as of this encounter
--- OUTSIDE RECORDS SUMMARY | 2025-08-11 16:47 | XMS_ITS | Encounter Summary ---
Author Organization [employer] Address [address] [facility] [address] [place] [address] Care Team Providers Care Hot Shot Name Role Phone Alba So GENEVA Primary Care Provider [phone] Encounter Details Date Type Department Care Team (Late st Contact Info) Description 08/07/2025 Telephone [facility] [address] [place] [address] Isamar Adams MD [address] [place] [address] Social History Tobacco Use Types Packs/Day Years [...] encounter Miscellaneous Notes * Telephone Encounter - Shirley Mcgarry RN - 08/08/2025 12:27 PM EDT Only number listed in chart belongs to pt's mother Brittany. T/C to Brittany who reports that pt is doingwell. States that she is not sure if pt was evaluated at [facility] or [facility] but states that pt's program wanted pt to be evaluated in the ED. Mom provided phone number of [phone]. T/C to this number forstatus check. No answer, v/m left to return call to [facility] team nurses. * Telephone Encounter - Fransisca Holliday MA - 08/07/2025 9:52 AM EDT Provider wants a wellness check on patient over the phone tomorrow 08/08/2025. documented in this encounter Plan of Treatment Upcoming Encounters Date Type Department Care Team (Late st Contact Info) Description 09/25/2025 2:00 PM EST Office Visit [facility] [address] [place] [address] Alba So NP [address] [place] [address] documented as of this encounter Visit Diagnoses Not on filedocumented in this encounter Additional Health Concerns Assessment Noted Time PHQ-9 Depression Total Score: 18 024 11:56 AM EST documented as of this encounter Care Teams Hot Shot Relationship Specialty Start Date End Date Alba So NP [address] [place] [address] PCP - General Family Medicine 04/14/24 documented as of this encounter
--- OUTSIDE RECORDS SUMMARY | 2025-08-11 16:47 | XMS_ITS | Encounter Summary ---
Author Organization [employer] Address [address] [facility] 7t [place] [address] Care Team Providers Care Fish Protector Name Role Phone Alba So SAP ABAP DEVELOPER Primary Care Provider [phone] Reason for Visit * Reason Onset Date Comments hep C tx 08/09/2025 Encounter Details Date Type Department Care Team ([facility] Contact Info) Description 08/09/2025 Telephone [facility] [address] [place] [address] Humaira Bruno, RN [address] [place] [address] hep C tx Social History Tobacco Use Types [...] Telephone Encounter - Humaira Bruno RN - 08/09/2025 12:22 PM EDT RN called pt to ronnell Feldman RN intake, female answered stating pt is not home and will have pt return call. documented in this encounter Plan of Treatment Upcoming Encounters Date Type Department Care Team (Late st Contact Info) Description 09/25/2025 2:00 PM EST Office Visit [facility] [address] [place] [address] Alba So NP [address] [place] [address] documented as of this encounter Visit Diagnoses Not on filedocumented in this encounter Additional Health Concerns Assessment Noted Time PHQ-9 Depression Total Score: 18 024 11:56 AM EST documented as of this encounter Care Teams Fish Protector Relationship Specialty Start Date End Date Alba So NP [address] [place] [address] PCP - General Family Medicine 04/14/24 documented as of this encounter
--- OUTSIDE RECORDS SUMMARY | 2025-08-11 16:47 | XMS_ITS | Encounter Summary ---
Author Organization [employer] Address [address] [facility] 7[address] [place] [address] Care Team Providers Care Trench Pipe Layer Name Role Phone Alba So NP Primary Care Provider [phone] Reason for Visit * Reason Onset Date Comments ER Follow-up 08/03/2025 Encounter Details Date Type Department Care Team ([facility] st Contact Info) Description 08/03/2025 Telephone [facility] [address] [place] [address] Alba So NP [address] [place] [address] ER Follow-up Social History Tobacco Use Types Packs/Day [...] Encounter - Shirley Mcgarry RN - 08/08/2025 12:32 PM EDT Call returned to [facility]. Erika reports that pt is taking meds prescribed in [facility] as prescribed. Reports that pt continues to feel weak with a headache. Erika states she advised him to try to give the meds a little more time for the meds to work. Reviewed WIC availability and ED precautions for worsening symptoms. * Telephone Encounter - Sabas Robledo - 08/04/2025 11:33 AM EDT Tc from Josse with [facility] calling back regarding prior message. Contact josse at [phone] Confidential VM you can leave apt date and time and she will make sure pt arrives to apt. * Telephone Encounter - Beth Fong RN - 08/03/2025 11:35 AM EDT Tc to pt who reports to still be symptomatic post discharge from [facility] due to a varicose vein burstedin their leg. Mom reports pt is at a program in [place] and provided a phone number for us to call.No answer, and VM does not sound secure enough for typewriter ribbon winder to LVM to return call and ask to speak totriage nurses. Tc to pt mom to let them know if they hear from pt to have them call our office back and to ask to speak to the triage nurses. Mom verbalized understanding and agrees with plan. * Telephone Encounter - Kaitlin Curran - 08/03/2025 10:08 AM EDT Patient calling to report ED visit on : Date: 08/01 Hospital: [facility] Seen for: pop vertical vein, pain in leg Symptomatic Yes *if yes message should go to Triage Patient advised will forward to team nurse for follow up documented in this encounter Plan of Treatment Upcoming Encounters Date Type Department Care Team (Late st Contact Info) Description 09/25/2025 2:00 PM EST Office Visit [facility] [address] [place] [address] Alba So NP [address] [place] [address] documented as of this encounter Visit Diagnoses Not on filedocumented in this encounter Additional Health Concerns Assessment Noted Time PHQ-9 Depression Total Score: 18 024 11:56 AM EST documented as of this encounter Care Teams Trench Pipe Layer Relationship Specialty Start Date End Date Alba So NP [address] [place] [address] PCP - General Family Medicine 04/14/24 documented as of this encounter
--- OUTSIDE RECORDS SUMMARY | 2025-08-11 16:47 | XMS_ITS | Encounter Summary ---
Author Organization [employer] Address [address] [facility] 7t [place] [address] Care Team Providers Care Supervisor Slashing Department Name Role Phone Nirali LottP Primary Care Provider [phone] Alba So NP Primary Care Provider [phone] Reason for Visit * Reason Onset Date Comments Hospital Follow-up 04/05/2024 Encounter Details Date Type Department Care Team ([facility] st Contact Info) Description 04/05/2024 Telephone [facility] [address] [place] [address] Nirali Lott FNP [address] [place] [address] Hospital Follow-up Social History Tobacco Use Types [...] from pt requesting a HDF appt. Hospital: [facility] Date of admission: 03/30 Discharge date: 04/01 Diagnosed: Chest Pain documented in this encounter Plan of Treatment Upcoming Encounters Date Type Department Care Team (Late st Contact Info) Description 09/25/2025 2:00 PM EST Office Visit [facility] [address] [place] [address] Alba So NP [address] [place] [address] documented as of this encounter Visit Diagnoses Not on filedocumented in this encounter Additional Health Concerns Assessment Noted Time PHQ-9 Depression Total Score: 0 06/03/20 10:05 AM EDT documented as of this encounter Care Teams Supervisor Slashing Department Relationship Specialty Start Date End Date Nirali Lott FNP [address] [place] [id number] PCP - General Family Medicine 07/09/23 04/13/24 Alba So NP [address] [place] [address] PCP - General Family Medicine 04/14/24 documented as of this encounter
--- OUTSIDE RECORDS SUMMARY | 2025-08-11 16:47 | XMS_ITS | Encounter Summary ---
Author Organization [employer] Address [address] [facility] [address] [place] [address] Care Team Providers Care Technical Manager Name Role Phone Nirali Lott Primary Care Provider [phone] Alba So NP Primary Care Provider [phone] Reason for Referral * Consultation (Routine) - Closed Specialty Diagnoses / Procedures Referred By Merle t Referred To Contact Hand Surgery Diagnoses Pain in finger of left hand Nirali Lott FNP [address] [place] [address] Phone: tel: fax: [facility] [address] [place] [address] Phone: tel: Referral ID Status Reason Start Date Expiration Date V isits Requested Visits Authorized [id number] Closed Specialty Services Required 12/23/2023 12/22/2024 6 6 Encounter Details Date Type Department Care Team (Late st Contact Info) Description 12/23/2023 Orders Only [facility] [address] [place] [address] Nirali Lott FNP [address] [place] [address] Pain in finger of left hand (Primary [...] Visit [facility] [address] [place] [address] Alba So NP [address] [place] [address] Scheduled Referrals Name Type Priority Associated Diagnoses [...] as of this encounter Care Teams Technical Manager Relationship Specialty Start Date End Date Nirali Lott FNP [address] [place] [address] PCP - General Family Medicine 07/09/23 04/13/24 Alba So NP [address] [place] [address] PCP - General Family Medicine 04/14/24 documented as of this encounter
--- OUTSIDE RECORDS SUMMARY | 2025-08-11 16:47 | XMS_ITS | Encounter Summary ---
Author Organization [employer] Address [address] [facility] [address] [place] [address] Care Team Providers Care Development Spec Name Role Phone Alba So GENEVA Primary Care Provider [phone] Encounter Details Date Type Department Care Team (Latest Contact Info) Description 08/07/2025 Travel Social History Tobacco Use Types Packs/Day [...] Description 09/25/2025 2:00 PM EST Office Visit [facility] [address] [place] [address] Alba oS NP [address] [place] [address] documented as of this encounter Visit Diagnoses Not on filedocumented in this encounter Additional Health Concerns Assessment Noted Time PHQ-9 Depression Total Score: 18 024 11:56 AM EST documented as of this encounter Care Teams Development Spec Relationship Specialty Start Date End Date Alba So NP [address] [place] [address] PCP - General Family Medicine 04/14/24 documented as of this encounter
--- OUTSIDE RECORDS SUMMARY | 2025-08-11 16:48 | XMS_ITS | Clinical Summary ---
Author Organization [employer] Address [address] [place] [address] Care Team Providers Care Teacher Of The Deaf/Hard Of Hearing Name Role Phone Alba So GENEVA Primary Care Provider [phone] Allergies No known active allergies Medications * [...] 2 times daily. 60 tablet 2 07/18/20 Active furosemide (Lasix) 20 MG tabletIndicati ons:Hx [...] noon, and at bedtime for anxiety. 06/02/20 Active predniSONE (Deltasone) 20 MG tablet Take 2 tablets (40 mg) by mouth Once per day for 5 days. 10 tablet 08/07/20 25 Active azithromycin (Zithromax) 250 MG tablet Take 2 tabs day and then 1 tab daily 6 tablet 08/07/20 Active neomycin-bacit racin-polymyxi n (Neosporin) 5-400-5000 ointment Apply topically Once per day for 10 days. 14.2 g 08/11/20 Active docusate sodium (Colace) 100 MG capsule [...] SHORTNESS OF BREATH /WHEEZE 1 each 02/21/20 025 Discontinued(Me d list cleanup (will not trigger notification to Pharmacy)) Active Problems Problem Noted Date Diagnosed Date Finger pain, left 08/11/2025 Assessment & Plan (08/11/2025 2:33 PM EDT): -Ordered x-ray of the left finger. -Referral to orthopedics for further evaluation. -Will sadia tape the finger to reduce discomfort. - Take Tylenol as needed Tenosynovitis of finger 08/11/2025 History of positive hepatitis C 07/24/2025 Venous [...] left lower extremity with infl ammation 02/10/2025 Assessment & Plan (08/11/2025 2:35 PM EDT): - Venous stasis ulceration, dressing will be applied and patient to continue doing dressings daily and follow-up with vascular surgery next month - Clean wound and apply dressing. -Patient advised to wear compression stockings. -Confirmed upcoming vascular surgery appointment on September 04, 2025. Drug abuse 02/10/2025 Opioid use disorder, severe, [...] treatment, ambulance called and expect called to [facility]. 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 Assessment & Plan (11/21/2024 7:05 PM EST): Pt with complicated hx and difficulty with out patient compliance Meds reconciled with [facility] discharge documents and refilled Pt prefers to seek care at [facility] today for ongoing cardiac [...] he gets home to be transported to [facility] for stitching as he did not want to be transported directly from the clinic Hx of pulmonary embolus 04/18/2023 Overview (04/18/2023): Treating w/ Xarelto 20 mg daily while at [facility] 03/16/23-04/15/23 (anticipated discharge date) Anemia, chronic disease 10/09/2022 Symptomatic anemia 10/09/2022 Overview (10/09/2022): Acute anemia related to tooth extractions on 10/01/22 while still on xarelto for anticoagulation. Taken to [place] ED, bleeding gums, not able to stop with pressure Hemoglobin 3 Received 1 prbc transfusion Transferred to [facility] for admission on 10/02/22. Received another transfusion Discharged 10/06/22 Ascites 07/21/2022 Bacteremia 07/21/2022 Overview (04/18/2023): Recurrent bacteremia and endocarditis found 03/04/23. Admitted. Left AMA on 03/14/23 Returned 03/15/23. Admitted again with plan to transfer to [facility], [facility], to continue antibiotics until 04/15 to finish [...] dependence (CMS/HCC) 06/27/2022 Overview (08/23/2024): Admitted to [facility] for rehab Treated w/ Methadone 40 mg at [facility] 03/16/23-04/15/23 -referred to [place] for Recovery and Support 08/23/24 Assessment & Plan (08/23/2024 2:45 PM EST): Admitted to [facility] for rehab Treated w/ Methadone 40 mg at SNF 03/16/23-04/15/23 -referred to [place] for Recovery and Support 08/23/24 Assessment & [...] 2020 Overview (10/09/2022): 07/16/22 - Presented to [facility] ED with hypotension, found to be in septic shock 07/20/22 - Left hospital AMA before completing IV antibiotics. Blood cultures positive for GBS and required pressor support when he arrived. 07/21/22 - Mother took Pt to [facility] ED since he left [facility] AMA. Pt IV drug use while at [...] treatment or fibrosis score as of 04/13/23 [facility] ED notes Assessment & Plan (08/06/2023 8:36 PM EDT): Hep C active complicated w decompensated cirrhosis with ascitis Hep C to start tx following now w GI at [facility] per pt Assessment & Plan (06/03/2023 2:07 PM EDT): Patient not sure if he received a referral to [facility] for hep c treatment or not. I will place a referral to our [facility] hep c team. Encounters Date Type Department Care Team Description 08/11/2025 2:20 PM EDT Office Visit [facility] [address] [place] [phone] Daniela Vaughn MD Finger pain, left (Primary Dx); Varicose veins of left lower extremity with inflammation; Tenosynovitis of finger 08/11/2025 Orders Only [facility] [address] [place] [phone] Daniela Vaughn MD 08/11/2025 Travel 08/09/[address] [address] Humaira Bruno RN hep C tx 08/07/2025 10:20 AM EDT [facility] [address] [address] Isamar Adams MD Acute bronchitis, unspecified organism (Primary Dx) 08/07/2025 Telephone [facility] [address] [place] [phone] Isamar Adams MD 08/07/2025 Travel 08/03/[address] [address] Alba So NP ER Follow-up 07/26/2025 Telephone [facility] [address] [place] [phone] Humaira Bruno, NABEEL Hep C tx 07/25/[address] [address] Daniela Vaughn MD DME L&C Compression stockings 07/25/[address] [phone] Daniela Vaughn MD RX Compresson stockings 07/24/[address] [phone] Alba So NP Durable Medical Equipment 07/20/2025 Results Follow-Up [address] [phone] Alba So NP XR Chest 2 Views 07/19/2025 10:00 AM EDT Office Visit [address] [address] Viviana Cruz FNP Hospital discharge follow-up (Primary Dx); Hemorrhage of varicose veins of lower extremity, bilateral; History of positive hepatitis C 07/19/2025 Orders Only [facility] External Provider, [facility] 07/19/2025 Travel 07/18/2025 9:20 AM EDT [facility] [address] [address] Nighat Galloway MD Hx pulmonary embolism (Primary Dx); Shortness of breath; Hx of heart failure 07/18/2025 Travel 07/17/[address] [address] Malika Garnett, PharmD 07/15/2025 10:40 AM EDT [facility] [address] [address] Daniela Vaughn MD Venous stasis dermatitis of both lower extremities (Primary Dx); Bleeding from varicose veins of left lower extremity 07/15/2025 Travel 07/11/2025 Patient Outreach [address] [phone] Alba So NP Pre-visit Planning (HDF- scheduled with the direct line and SDOH screening completed on 01/19/2025) 07/07/2025 Results Follow-Up [address] [phone] Alba So NP CBC auto differential, Complete Blood Count Manual Diff, Prothrombin Time-INR, Additional followed-up results: 7 06/06/2025 Orders Only GENERIC EXTERNAL DATA DEPARTMENT Provider, Generic External Data 06/04/2025 Orders Only GENERIC EXTERNAL DATA DEPARTMENT Provider, Generic External Data 05/30/2025 Telephone [facility] [address] [place] [address] Leela Gamino RN from Last 3 Months Immunizations Immunization Administration [...] 20 08/11/2025 2:17 PM EDT Oxygen Saturation 95% 08/07/2025 9:45 AM EDT Inhaled Oxygen Concentration - - Weight 85 kg (187 lb 6.4 oz) 08/11/2025 2:17 PM EDT Height 170.2 cm (5' 7 ) 08/11/2025 2:17 PM EDT Body Mass Index 29.35 08/11/2025 2:17 PM EDT Plan of Treatment Upcoming Encounters Date Type Department Care Team (Late st Contact Info) Description 09/25/2025 2:00 PM EST Office Visit [facility] [address] [place] [address] Alba So NP [address] [place] [address] Health Maintenance Due Date Last Done Comments [...] 10/18/2024 SDOH Screening 01/19/2026 01/19/2025 Tobacco Screening 08/07/2026 08/07/2025 DTaP/Tdap/Td Vaccines (2 - T d or [...] SLIDE REVIEW Routine 08/11/2025 3:17 PM EDT CBC WITH AUTO DIFFERENTIAL Routine 08/11/2025 3:17 PM EDT Tenosynovitis of finger XR FINGERS 2+ VIEWS LEFT Routine 08/11/2025 2:58 PM EDT Finger pain, left POCT RAPID COVID ANTIGEN Routine 08/07/2025 9:54 AM EDT Acute bronchitis, unspecified organism POCT RAPID STREP A Routine 08/07/2025 9: 54 AM EDT Acute bronchitis, unspecified organism DRUG MONITOR, PANEL 1, SCREEN, URINE Routine [...] Recently Relevant to Health Maintenance Results * Slide Review (08/11/2025 3:17 PM EDT) Only the most recent of2 resultswithin the time period is included. Slide Review VERIFIED [facility] 08/11/2025 3:17 PM EDT 08/11/2025 4:07 PM EDT Daniela Vaughn MD LAB BLOOD ORDERABLES Fin al Result [facility] [address] [place] [phone] [phone] * (ABNORMAL) CBC auto differential (08/11/2025 3:17 PM EDT) Only the most recent of4 resultswithin the time period is included. White Blood Count 13.4(H) 4.8 - 10.8 X10*3/uL [facility] Red Blood Count 4.86 4.60 - 5.80 X10*6/uL [facility] Hemoglobin 12.0(L) 14.0 - 18.0 g/dl [facility] Hematocrit 38.1(L) 42.0 - 52.0 % [facility] Mean Corpuscular Volume 78.4(L) 80.0 - 98.0 fL [facility] Mean Corpuscular Hemoglobin 24.7(L) 27.0 - 33.0 pg [facility] Mean Corpuscular HGB Conc 31.5 31.0 - 36.0 g/dl [facility] Red Cell Distribution Width 25.9(H) 11.0 - 16.0 % [facility] Platelet Count 144(L) 160 - 400 X10*3/uL [facility] Neutrophils Percent Auto 61.5 45 - 73 % [facility] Imm Gran Pct Auto 2.2(H) 0.0 - 0.4 % [facility] Lymphocytes Percent Auto 19.8(L) 20 - 40 % [facility] Monocytes Percent Auto 12.3(H) 2 - 11 % [facility] Eosinophils Percent Auto 3.6 0 - 4 % [facility] Basophils Percent Auto 0.6 0 - 2 % [facility] NRBC Pct Auto 0.0 0.0 - 0.2 /100WBC [facility] Neutrophils Absolute Auto 8.3 2.0 - 8.3 x10*3/uL [facility] Imm Gran Abs Auto 0.29(H) 0.00 - 0.03 X10*3/uL [facility] Lymphocytes Absolute Auto 2.7 1.2 - 4.9 X10*3/uL [facility] Monocytes Absolute Auto 1.7(H) 0.1 - 1.2 X10*3/uL [facility] Eosinophils Absolute Auto 0.5(H) 0.0 - 0.4 X10*3/uL [facility] Basophils Absolute Auto 0.1 0.0 - 0.2 X10*3/uL [facility] NRBC Abs Auto 0.000 0.0 - 0.012 X10*3/uL [facility] Blood Venous blood specimen / Unknown 08/11/2025 3:17 PM EDT 08/11/2025 4:07 PM EDT Daniela Vaughn MD LAB BLOOD ORDERABLES Thierno nicole Result - Final Performing Organization Address City/State/[facility] Co de Phone Number [facility] [address] [place] [phone] [phone] * XR Fingers 2+ Views Left (08/11/2025 2:58 PM EDT) Anatomical Region Laterality Modality Upper Extremities, Fingers Left Radio graphic Imaging 08/11/2025 2:58 PM EDT Narrative 08/11/2025 3:06 PM EDT [facility] [address] [place] [address] XRay Report Signed Patient: Norberto Marquez MR#: [id number] : 1990 Acct:[id number] Age/Sex: 34 / M ADM Date: 08/11/25 Loc: [facility] Attending Dr: Daniela Vaughn MD Ordering Physician: Daniela Vaughn MD Date of Service: 08/11/25 Procedure(s): XR finger LT min 2V Accession Number(s): [id number] cc: Daniela Vaughn MD Reason for Exam: [...] Monica Richmond MD 08/11/2025 03:03 PM EDT RP Dictated By: Monica Richmond MD Signed By: <Electronically signed by Monica Richmond MD in OV> 08/11/25 1503 DD/ 1458 TD/TT: 08/11/25 1448 Physical Therapy Technician: MICHAEL Procedure Note Donotuseinterpreter, Image - 08/11/[address] [address] XRay Report Signed Patient: Zully Marquez#: [id number] : 1990Acct:[id number] Age/Sex: 34 / MADM Date: 08/11/25 Loc: [facility] Attending Dr: Daniela Vaughn MD Ordering Physician: Daniela Vaughn MD Date of Service: 08/11/25 Procedure(s): XR finger LT min 2V Accession Number(s): [id number] cc: Daniela Vaughn MD Reason for Exam: [...] Monica Richmond MD 08/11/2025 03:03 PM EDT RP Dictated By: Monica Richmond MD Signed By: <Electronically signed by Monica Richmond MD in OV> 08/11/25 1503 DD/ 1458 TD/TT: 08/11/25 1448 Physical Therapy Technician: MICHAEL Daniela Vaughn MD IMG XR PROCEDURES Final Result * POCT Rapid COVID Ag (08/07/2025 9:54 AM EDT) Only the most recent of2 resultswithin the time period is included. Rapid COVID Ag Negative Swab 08/07/2025 9:54 AM EDT Isamar Adams MD POINT OF CARE TEST ENTER/EDIT OR DERABLES Final Result * POCT rapid strep A manually resulted (08/07/2025 9:54 AM EDT) Only the most recent of2 resultswithin the time period is included. Rapid Strep A Screen Negative Negative, None Detected Swab 08/07/2025 9:54 AM EDT Isamar Adams MD POINT OF CARE TEST ENTER/EDIT OR DERABLES Final Result * (ABNORMAL) Drug Monitoring, Panel 1, Screen, Urine (07/19/2025 8:51 PM EDT) Only the most recent of3 resultswithin the time period is included. Opiate Screen Urine Not Detected Not Detect [facility] Comment:Opiate cut-off is 30 0 ng/mL.Positive results are unconfirmed and should not be used fornon-medical purposes. Barbiturates, Urine Not Detected Not Detect [facility] Comment:Barbiturate cut-off is 200 ng/mL.Positive results are unconfirmed and should not be used fornon-medical purposes. Phencyclidine Screen Urine Not Detected Not Detect [facility] Comment:Phencyclidine cut-of f is 25 ng/mL.Positive results are unconfirmed and should not be used fornon-medical purposes. Amphetamine Screen Urine Not Detected Not Detect [facility] Comment:Amphetamine cut-off is 1000 ng/mL.Positive results are unconfirmed and should not be used fornon-medical purposes. Benzodiazepines Screen Urine Not Detected Not Detect [facility] Comment:Benzodiazepine cut-o ff is 200 ng/mL.Positive results are unconfirmed and should not be used fornon-medical purposes. Cocaine Screen Urine Not Detected Not Detect [facility] Comment:Cocaine cut-off is 3 00 ng/mL.Positive results are unconfirmed and should not be used fornon-medical purposes. Cannabinoid Screen Urine Not Detected Not Detect [facility] Comment:Cannabinoid cut-off is 50 ng/mL.Positive results are unconfirmed and should not be used fornon-medical purposes. Methadone Screen, Urine Positive(A) Not Detect ng/mL [facility] Comment:Methadone cut-off is 300 ng/mL.Positive results are unconfirmed and should not be used fornon-medical purposes. FENTANYL URINE Not Detected Not Detect [facility] Comment:Fentanyl cut-off is 1 ng/mL.Positive results are unconfirmed and should not be used fornon-medical purposes. Oxycodone Urine Screen Not Detected Not Detect ng/mL [facility] Comment:Oxycodone cut-off is 100 ng/mL.Positive results are unconfirmed and should not be used fornon-medical purposes. Buprenorphine Screen Not Detected Not Detect ng/mL [facility] Comment:Buprenorphine cut-of f is 5 ng/mL.Positive results are unconfirmed and should not be used fornon-medical purposes. 07/19/2025 8:51 PM EDT 07/19/2025 8:52 PM EDT us Generic External Data Provider LAB URINE ORDERAB LES Final Result [facility] [address] [place] [phone] * XR Chest 2 Views (07/19/2025 6:24 PM EDT) Anatomical Region Laterality Modality Chest Radiographic Ladan ging 07/19/2025 6:24 PM EDT Narrative 07/19/2025 6:26 PM EDT [address] [address] XRay Report Signed Patient: Norberto Marquez MR#: [id number] : 1990 Acct:[id number] Age/Sex: 34 / M ADM Date: 07/19/25 Loc: .ED Attending Dr: Ordering Physician: Alana Carreon Date of Service: 07/19/25 Procedure(s): XR chest 2V Accession Number(s): [id number] cc: [facility]; Alana Carreon Reason for Exam: SOB [...] in OV> 07/19/251824 DD/ 23 TD/TT: 07/19/251823 Physical Therapy Technician: Procedure Note Donotuseinterpreter, Image - 07/19/2025 [address] [place] [address] XRay Report Signed Patient: Zully Marquez#: [id number] : 1990Acct:[id number] Age/Sex: 34 / MADM Date: 07/19/25 Loc: HO.ED Attending Dr: Ordering Physician: Alana Carreon Date of Service: 07/19/25 Procedure(s): XR chest 2V Accession Number(s): [id number] cc: [facility]; Alana Carreon Reason for Exam: SOB [...] in OV> 07/19/251824 DD/ 23 TD/TT: 07/19/251823 Physical Therapy Technician: [facility] External Provider IMG XR PROCEDURES Final Result * Influenza A B2 ID NOW (Cheung) (07/19/2025 6:22 PM EDT) IDNOW SERIAL# [id number] [facility] Influenza A Negative Negative [facility] Influenza B2 Negative Negative [facility] Influenza A B2 Note See Note [facility] Comment:The [place]ung ID NOW In fluenza [...] GENERAL ORDERABLES Final Result Performing Organization Address [facility] Co de Phone Number [facility] [address] [place] [phone] * COVID-19 ID NOW (CHEUNG) (07/19/2025 6:22 PM EDT) IDNOW SERIAL# [id number] [facility] COVID-19 TEST Negative Negative [facility] COVID-19 NOTE See Note [facility] Comment: Results are for the identification of SARS-CoV2 RNA. TheSARS-CoV2 RNA is generally detectable in respiratory samplesduring the acute phase of infection. Positive results areindicative of the presence of SARS-CoV-2 RNA; clinicalcorrelation with patient history and other diagnosticinformation is necessary to determine patient infectionstatus. Positive results do not rule out bacterial infectionor co- infection with other viruses.Testing facilities within the [facility] and [facility] are required to report all positive [...] GNOSTICS ORDERABLES Final Result Performing Organization Address City/[facility]/ZIP Co de Phone Number [facility] [address] [place] [address] [phone] * High Sensitivity Troponin I (07/19/2025 6:22 PM EDT) Only the most recent of3 resultswithin the time period is included. TROPONIN I HIGH SENSITIVITY 3.3 <3.5 - 35.0 ng/L [facility] Comment:The [place]ung high sens itivity Troponin-I results should beused in conjunction with other diagnostic information suchas ECG, clinical observations and information, and patientsymptoms to aid in the diagnosis of AR. 07/19/2025 6:22 PM EDT 07/19/2025 6:27 PM EDT Generic External Data Provider LAB BLOOD ORDERAB LES Final Result Performing Organization Address [facility]/ZIP Co de Phone Number [facility] [address] [place] [phone] * Ethanol (07/19/2025 6:22 PM EDT) Only the most recent of2 resultswithin the time period is included. ETHANOL (MG/DL) IN SER/PLAS <10 mg/dL [facility] Comment:Serum/plasma ethanol results are to be used formedical/treatment purposes only. 07/19/2025 6:22 PM EDT 07/19/2025 6:27 PM EDT us Generic External Data Provider LAB BLOOD ORDERAB LES Final Result Performing Organization Address City/[facility]/ZIP Co de Phone Number [facility] [address] [place] [phone] [phone] * NT-proBNP (07/19/2025 6:22 PM EDT) NT-proBNP 251.0 <300 pg/mL [facility] Comment:Reference Range:Age Group (years) NT-proBNP (pg/ml) InterpretationAll <300 Negative: HF unlikelyFor patients presenting to the ED with clinical suspicion ofnew onset or worsening HF, see below:18 to <50 >299.9 to <450.0 Grayzone: Sdcphexa72 to 75 >299.9 to <900.0 other causes of>75 >299.9 to <1800.0 NT-proBNP eylsdqteh73 to <50 >449.9 Positive: HF tumecm48-97 >899.9>75 >1799.9Note: Elevated NT-proBNP levels should be interpreted inthe context of other clinical information. 07/19/2025 6:22 PM EDT 07/19/2025 6:27 PM EDT Generic External Data Provider LAB BLOOD ORDERAB LES Final Result Performing Organization Address [facility] Co de Phone Number [facility] [address] [place] [phone] * Magnesium (07/19/2025 6:22 PM EDT) Only the most recent of3 resultswithin the time period is included. Magnesium 1.6 1.6 - 2.6 mg/dL [facility] 07/19/2025 6:22 PM EDT 07/19/2025 6:27 PM EDT Generic External Data Provider LAB BLOOD ORDERAB LES Final Result Performing Organization Address [facility] de Phone Number [facility] [address] [place] [phone] * (ABNORMAL) Ammonia, Plasma (07/19/2025 6:22 PM EDT) Ammonia (P) 59(H) 13 - 55 umol/L [facility] 07/19/2025 6:22 PM EDT 07/19/2025 6:27 PM EDT Generic External Data Provider LAB BLOOD ORDERAB LES Final Result Performing Organization Address [facility] Co de Phone Number [facility] [address] [place] [phone] * (ABNORMAL) Hepatic Function Panel (07/19/2025 6:22 PM EDT) Pathologist [facility] Bilirubin, Total 0.9 0.0 - 1.0 mg/dL [facility] Bilirubin, Direct 0.5 0.0 - 0.5 mg/dL [facility] Aspartate Amino Transferase 94(H) 5 - 37 U/L [facility] Alanine Aminotransferase 81(H) 0 - 40 U/L [facility] Total Protein 7.1 6.5 - 8.0 g/dL [facility] Albumin Level 4.0 3.5 - 5.0 g/dL [facility] Alkaline Phosphatase 273(H) 39 - 117 U/L [facility] 07/19/2025 6:22 PM EDT 07/19/2025 6:27 PM EDT us Generic External Data Provider LAB BLOOD ORDERAB LES Final Result [facility] [address] [place] [address] [phone] * (ABNORMAL) Basic Metabolic Panel (07/19/2025 6:22 PM EDT) [facility] Sodium 138 135 - 145 mmol/L [facility] Potassium 4.5 3.3 - 5.1 mmol/L [facility] Chloride 109(H) 96 - 108 mmol/L [facility] Carbon Dioxide 21(L) 22 - 29 mmol/L [facility] Anion Gap 13 12 - 20 [facility] Urea Nitrogen (BUN) 21(H) 9 - 16 mg/dL [facility] Creatinine, Serum 0.79 0.5 - 1.4 mg/dL [facility] Creatinine Clr Calc Pharmacy 126.2 [facility] Comment:eGFR (calculated fro m the MDRD study equation) and eCrCl(calculated from the Cockcroft-Gault equation) are based ondifferent parameters and may not yield comparable results.If eCrCl result is absurd, please check patient'sheight/weight. Estimated Glomerular Filt Rate >60 [facility] Comment:Chronic Kidney Disea se: Estimated GFR < 60 mL/min/1.85t6Xnfcuf Kidney Disease: Estimated GFR < 15 mL/min/1.73m2 Glucose 98 60 - 115 mg/dL [facility] Calcium 9.6 8.4 - 10.2 mg/dL [facility] 07/19/2025 6:22 PM EDT 07/19/2025 6:27 PM EDT Generic External Data Provider LAB BLOOD ORDERAB LES Final Result Performing Organization Address [facility]/ZIP Co de Phone Number [facility] [address] [place] [phone] * Influenza B (ID NOW Rapid Molecular) (07/18/2025 12:57 PM EDT) Influenza B Negative Negative, Indeterminate [facility] Swab 07/18/2025 12:5 7 PM EDT Nighat Galloway MD POINT OF CARE TEST ENTER/E DIT ORDERABLES Final Result Performing Organization Address [facility] Co de Phone Number [facility] [address] [place] [address] [phone] * Influenza A (ID NOW Rapid Molecular) (07/18/2025 12:57 PM EDT) Influenza A Negative Negative, Indeterminate [facility] Swab 07/18/2025 12:5 7 PM EDT Nighat Galloway MD POINT OF CARE TEST ENTER/E DIT ORDERABLES Final Result Performing Organization Address [facility] Co de Phone Number [facility] [address] [place] [phone] * CT Head w/o Contrast (06/08/2025 10:44 AM EDT) Anatomical Region Laterality Modality Head, Neck Computed Tomogra phy 06/08/2025 10:4 4 AM EDT Narrative 06/08/2025 12:17 PM EDT [address] [address] [address] Scan Report Signed Patient: Norberto Marquez MR#: [id number] : 1990 Acct:[id number] Age/Sex: 34 / M ADM Date: 06/06/25 Loc: [facility] 471-[address]: David Altman MD Ordering Physician: David Altman MD Date of Service: 06/08/25 Procedure(s): CT head/brain wo IV con Accession Number(s): [id number] cc: [facility]; David Altman MD Report Number: [id number]: Total DLP = 1453.00 mGy-cm EXAMINATION: CT [...] 06/08/25 1215 DD/ 1044 TD/TT: 06/08/25 1158 Physical Therapy Technician: Procedure Note Donotsatnamjaimeter, Image - 06/08/[address] [place] [address] [address] Scan Report Signed Patient: Zully Marquez#: [id number] : 1990Acct:[id number] Age/Sex: 34 / MADM Date: 06/06/25 Loc: [facility] 471-[address]: David Altman MD Ordering Physician: David Altman MD Date of Service: 06/08/25 Procedure(s): CT head/brain wo IV con Accession Number(s): [id number] cc: [facility]; David Altman MD Report Number: [id number]: Total DLP = 1453.00 mGy-cm EXAMINATION: CT [...] 06/08/25 1215 DD/ 1044 TD/TT: 06/08/25 1158 Physical Therapy Technician: us [facility] External Provider IMG CT PROCEDURES Final Result * CT Abdomen Pelvis w/o Contrast (06/07/2025 10:44 AM EDT) Anatomical Region Laterality Modality Body, Pelvis, Abdomen Computed T omography 06/07/2025 10:4 4 AM EDT Narrative 06/08/2025 12:28 PM EDT [place] [address] CT Scan Report Signed Patient: Norberto Marquez MR#: [id number] : 1990 Acct:[id number] Age/Sex: 34 / M ADM Date: 06/06/25 Loc: [facility] 471-[address]: David Altman MD Ordering Physician: Allisno Mejía Date of Service: 06/07/25 Procedure(s): CT abdomen pelvis wo IV con Accession Number(s): [id number] [facility] Report Number: [id number]: Total DLP = 1453.00 mGy-cm EXAMINATION: CT [...] 06/08/25 1224 DD/ 1044 TD/TT: 06/08/25 1158 Physical Therapy Technician: Procedure Note Donotuseinterpreter, Image - 06/08/[address] [place] [address] [address] Scan Report Signed Patient: Zully Marquez#: [id number] : 1990Acct:[id number] Age/Sex: 34 / MADM Date: 06/06/25 Loc: [facility] 471-[address]: David Altman MD Ordering Physician: Allison Mejía Date of Service: 06/07/25 Procedure(s): CT abdomen pelvis wo IV con Accession Number(s): [id number] cc: Allison Mejía; [facility] Report Number: [id number]: Total DLP = 1453.00 mGy-cm EXAMINATION: CT [...] 06/08/25 1224 DD/ 1044 TD/TT: 06/08/25 1158 Physical Therapy Technician: [facility] External Provider IMG CT PROCEDURES Final Result * [facility] US Lower Extremity Venous Duplex Bilateral (06/07/2025 8:50 AM EDT) 06/07/2025 8:50 AM EDT Narrative [facility] - 06/07/2025 9:16 AM EDT [address] [address] Ultrasound Report Signed Patient: Norberto Marquez MR#: [id number] : 1990 Acct:[id number] Age/Sex: 34 / M ADM Date: 06/06/25 Loc: [facility]-[address]: David Altman MD Ordering Physician: Allison Mejía Date of Service: 06/07/25 Procedure(s): US venous duplex LE BI Accession Number(s): [id number] cc: [place] [facility]; [facility] EXAMINATION: US TRIPLEX LOWER EXTREMITY, BILATERAL [...] in OV> 06/07/25 0913 DD/ 0850 TD/TT: 08/20/25 0900 Physical Therapy Technician: Procedure Note Donotuseinterpreter, Image - 06/07/[address] [address] Ultrasound Report Signed Patient: Zully Marquez#: [id number] : 1990Acct:[id number] Age/Sex: 34 / MADM Date: 06/06/25 Loc: [facility]: David Altman MD Ordering Physician: Allison Mejía [facility] Date of Service: 06/07/25 Procedure(s): US venous duplex LE BI Accession Number(s): [id number] cc: Kym,[facility]; [facility] EXAMINATION: US TRIPLEX LOWER EXTREMITY, BILATERAL [...] bilateral lower extremities. Electronically signed by: Cory Krishann MD 06/07/2025 09:13 AM EDT Dictated By: Cory Krishnan MD Signed By: <Electronically signed by Cory Krishnan MD in OV> 06/07/25912 DD/ TD/TT: 06/07/25899 Physical Therapy Technician: [facility] External Provider CV VASC ULAR PROCEDURES Final Result [facility] [address] [place] [phone] * XR Tibia Fibula 2 Views Left (06/07/2025 7:15 AM EDT) Anatomical Region Laterality Modality Lower Extremities, Lower Leg Left Rad iographic Imaging 06/07/2025 7:15 AM EDT Narrative 06/07/2025 8:29 AM EDT [address] [address] XRay Report Signed Patient: Norberto Marquez MR#: [id number] : 1990 Acct:[id number] Age/Sex: 34 / M ADM Date: 06/06/25 Loc: [place] [address]: David Altman MD Ordering Physician: Allison Mejía Date of Service: 06/07/25 Procedure(s): XR tibia fibula LT 2V Accession Number(s): [id number] cc: Kym,[facility]; [facility] EXAMINATION: XR TIBIA AND FIBULA, LEFT [...] 06/07/25 0826 DD/ 0715 TD/TT: 06/07/25 0732 Physical Therapy Technician: Procedure Note Donotuseinterpreter, Image - 06/07/[address] [address] XRay Report Signed Patient: Marcelo MarquezR#: [id number] : 1990Acct:[id number] Age/Sex: 34 / MADM Date: 06/06/25 Loc: [facility]: David Altman MD Ordering Physician: Allison Mejía [facility] Date of Service: 06/07/25 Procedure(s): XR tibia fibula LT 2V Accession Number(s): [id number] cc: Allison Mejía [facility]; [facility] EXAMINATION: XR TIBIA AND FIBULA, LEFT [...] 06/07/25 0826 DD/ 0715 TD/TT: 06/07/25 0732 Physical Therapy Technician: [facility] External Provider IMG XR PROCEDURES Final Result * CTA Chest PE Protocal (06/06/2025 11:03 PM EDT) Anatomical Region Laterality Modality Body, Chest Computed Tomogra phy 06/06/2025 11:0 3 PM EDT Narrative 06/06/2025 11:05 PM EDT [place] [address] CT Scan Report Signed Patient: Norberto Marquez MR#: [id number] : 1990 Acct:[id number] Age/Sex: 34 / M ADM Date: 06/06/25 Loc: [facility] Attending Dr: Ordering Physician: Yanet Jang DO Date of Service: 06/06/25 Procedure(s): CT angio chest PE protocol Accession Number(s): [id number] cc: Yanet Jang DO; [facility] Report Number: [id number]: Total DLP = 421.00 mGy-cm CLINICAL HISTORY: elevated d-dimer, hx IVDA CT angiography chest with contrast. 3D Postprocessing. Comparison: CT/NC/SR - CT ANGIO CHEST PE PROTOCOL - [...] in OV> 06/06/252303 DD/ 02 TD/TT: 06/06/252302 Physical Therapy Technician: Procedure Note Donotuseinterpreter, Image - 06/06/[address] [place] [address] [address] Scan Report Signed Patient: Zully Marquez#: [id number] : 1990Acct:[id number] Age/Sex: 34 / MADM Date: 06/06/25 Loc: .ED Attending Dr: Ordering Physician: Yanet Jang DO Date of Service: 06/06/25 Procedure(s): CT angio chest PE protocol Accession Number(s): [id number] cc: Yanet Jang DO; [facility] Report Number: [id number]: Total DLP = 421.00 mGy-cm CLINICAL HISTORY: elevated d-dimer, hx IVDA CT angiography chest with contrast. 3D Postprocessing. Comparison: CT/NC/SR - CT ANGIO CHEST PE PROTOCOL - [...] in OV> 06/06/252303 DD/ 02 TD/TT: 06/06/252302 Physical Therapy Technician: us [facility] External Provider IMG CT PROCEDURES Edited Result - Final * (ABNORMAL) Urinalysis, Complete, with Reflex to Culture (06/06/2025 9:11 PM EDT) Only the most recent of2 resultswithin the time period is included. Color Urine Yellow [facility] Appearance Urine Clear [facility] PH 6.0 5.0 - 9.0 [facility] Glucose Urine UA Negative Negative mg/dL [facility] Urine Blood Trace(A) Negative [facility] Specific [place] - Urine 1.015 1.005 - 1.025 [facility] Urine Protein Negative Neg-Trace mg/dL [facility] Urine Ketones Negative Negative mg/dL [facility] Nitrite Urine Negative Negative [facility] Leukocyte Esterase Urine Negative Negative [facility] RBC Urine 6-10(A) 0 - 2 /HPF [facility] Urine WBC 0-5 0 - 5 /HPF [facility] Urine Squamous Epithelial Cell 0-2 0 - 2 /HPF [facility] Urine Bacteria None Seen None Seen [facility] Hyaline Casts, Urine 0-2 0 - 2 /LPF [facility] 06/06/2025 9:11 PM EDT 06/06/2025 9:15 PM EDT Narrative [facility] - 06/06/2025 10:06 PM EDT [id number], Clean Catch Generic External Data Provider LAB URINE ORDERAB LES Final Result Performing Organization Address [facility] Co de Phone Number [facility] [address] [place] [phone] * D Dimer High Sensitivity (06/06/2025 3:18 PM EDT) Only the most recent of2 resultswithin the time period is included. Pathologist [facility] D Dimer High Sensitivity 1,296 NG/ML [facility] Comment:D-DIMER HS REFERENCE RANGENote: Our assay reports D-Dimer Units (D- DU).The cut-off value for venous thromboembolic (VTE) disease is230 ng/mL. This value has a very high negative predictivevalue when the patient has a low to moderate clinicalprobability of VTE.The upper limit of normal is 243 ng/mL. 06/06/2025 3:18 PM EDT 06/06/2025 3:25 PM EDT [employer] External Data Provider LAB BLOOD ORDERAB LES Final Result Performing Organization Address [facility] Co de Phone Number [facility] [address] [place] [phone] * (ABNORMAL) Prothrombin Time-INR (06/06/2025 3:18 PM EDT) Pathologist [facility] Prothrombin Time 25.0(H) 10.9 - 12.4 SEC [facility] INTERNATIONAL NORM RATIO 2.2(H) 0.9 - 1.1 [facility] Comment:INTERNATIONAL NORMAL IZED RATIO (INR) REFERENCE [...] Provider LAB BLOOD ORDERAB LES Final Result [facility] [address] [place] [phone] * (ABNORMAL) Comprehensive Metabolic Panel (06/06/2025 3:18 PM EDT) Only the most recent of2 resultswithin the time period is included. Sodium 141 135 - 145 mmol/L [facility] Potassium 3.5 3.3 - 5.1 mmol/L [facility] Chloride 112(H) 96 - 108 mmol/L [facility] Carbon Dioxide 20(L) 22 - 29 mmol/L [facility] Anion Gap 13 12 - 20 [facility] Urea Nitrogen (BUN) 21(H) 9 - 16 mg/dL [facility] Creatinine, Serum 0.79 0.5 - 1.4 mg/dL [facility] Creatinine Clr Calc Pharmacy 116.6 [facility] Comment:eGFR (calculated fro m the MDRD study equation) and eCrCl(calculated from the Cockcroft-Gault equation) are based ondifferent parameters and may not yield comparable results.If eCrCl result is absurd, please check patient'sheight/weight. Estimated Glomerular Filt Rate >60 [facility] Comment:Chronic Kidney Disea se: Estimated GFR < 60 mL/min/1.75y1Mebxas Kidney Disease: Estimated GFR < 15 mL/min/1.73m2 Glucose 89 60 - 115 mg/dL [facility] Calcium 8.3(L) 8.4 - 10.2 mg/dL [facility] Bilirubin, Total 1.0 0.0 - 1.0 mg/dL [facility] Aspartate Amino Transferase 41(H) 5 - 37 U/L [facility] Alanine Aminotransferase 25 0 - 40 U/L [facility] Total Protein 7.0 6.5 - 8.0 g/dL [facility] Albumin Level 3.4(L) 3.5 - 5.0 g/dL [facility] Alkaline Phosphatase 227(H) 39 - 117 U/L [facility] 06/06/2025 3:18 PM EDT 06/06/2025 3:25 PM EDT us Generic External Data Provider LAB BLOOD ORDERAB LES Final Result Performing Organization Address [facility]/ZIP Co de Phone Number [facility] [address] [place] [address] [phone] * Glucose, Whole Blood (06/04/2025 7:02 PM EDT) Only the most recent of2 resultswithin the time period is included. Glucose, Whole Blood 115 60 - 115 mg/dL [facility] Comment:METER #: [id number] 06/04/2025 7:02 PM EDT 06/04/2025 7:06 PM EDT us Generic External Data Provider LAB BLOOD ORDERAB LES Final Result Performing Organization Address [facility] Co de Phone Number [facility] [address] [place] [address] [phone] * Blood Culture (Second) (06/04/2025 4:39 PM EDT) Blood Venous blood specimen / Unknown 06/04/2025 4:39 PM EDT 06/04/2025 4:46 PM EDT Comment:Blood Narrative [facility] - 06/09/2025 6:47 PM EDT Blood Culture (Second) No growth after 5 days. Specimen Source: Blood us Generic External Data Provider LAB MICROBIOLOGY - GENERAL ORDERABLES Final Result Performing Organization Address [facility] Co de Phone Number [facility] [address] [place] [phone] * (ABNORMAL) Creatine Kinase, Total (06/04/2025 4:39 PM EDT) Creatine Kinase Total 504(H) 38 - 174 U/L [facility] 06/04/2025 4:39 PM EDT 06/04/2025 4:46 PM EDT us Generic External Data Provider LAB BLOOD ORDERAB LES Final Result Performing Organization Address City/State/[facility] Co de Phone Number [facility] [address] [place] [phone] * Lower Extremity Venous Duplex (06/04/2025 4:06 PM EDT) 06/04/2025 4:06 PM EDT Narrative [facility] - 06/05/2025 8:20 AM EDT [address] [address] Ultrasound Report Signed Patient: Norberto Marquez MR#: [id number] : 1990 Acct:[id number] Age/Sex: 34 / M ADM Date: 06/04/25 Loc: .ED Attending Dr: Ordering Physician: Fartun Farris Date of Service: 06/04/25 Procedure(s): US venous duplex LE LT Accession Number(s): [id number] cc: [facility]; Fartun Farris EXAMINATION: US LOWER EXTREMITY [...] Earl Miller MD in OV> 06/05/25816 DD/ 160 TD/TT: 06/04/251611 Physical Therapy Technician: Procedure Note Donotuseinterpreter, Image - 06/05/2025 [place] [address] Ultrasound Report Signed Patient: Zully Marquez#: [id number] : 1990Acct:[id number] Age/Sex: 34 / MADM Date: 06/04/25 Loc: .ED Attending Dr: Ordering Physician: Fartun Farris Date of Service: 06/04/25 Procedure(s): US venous duplex LE LT Accession Number(s): [id number] cc: [facility]; Fartun Farris EXAMINATION: US LOWER EXTREMITY [...] in OV> 06/05/25816 DD/ 1606 TD/TT: 06/04/25 161 Physical Therapy Technician: [facility] External Provider CV VASC ULAR PROCEDURES Final Result Performing Organization Address [facility]/ZIP Co de Phone Number [facility] [address] [place] [address] * Blood Culture (First) (06/04/2025 3:15 PM EDT) Blood Venous blood specimen / Unknown 06/04/2025 3:15 PM EDT 06/04/2025 3:26 PM EDT Comment:Blood Narrative [facility] - 06/09/2025 5:27 PM EDT Blood Culture (First) No growth after 5 days. Specimen Source: Blood Generic External Data Provider LAB MICROBIOLOGY - GENERAL ORDERABLES Final Result Performing Organization Address [facility]/ZIP Co de Phone Number [facility] [address] [place] [phone] * Lactic Acid (06/04/2025 3:15 PM EDT) Lactic Acid 1.4 0.5 - 2.0 mmol/L [facility] 06/04/2025 3:15 PM EDT 06/04/2025 3:26 PM EDT Generic External Data Provider LAB BLOOD ORDERAB LES Final Result Performing Organization Address [facility] Co de Phone Number [facility] [address] [place] [address] [phone] * HIV-1/2 Antigen and Antibodies, Fourth Generation, with Reflexes (04/08/2024 11:52 AM EDT) HIV AB/AG Nonreactive Nonreactive [facility] Comment:HIV-1 p24 Ag and/or HIV-1/HIV-2 Ab not detected.A test result that is nonreactive does not exclude thepossibility of exposure to or infection with HIV-1 and/orHIV-2. Nonreactive results in this assay for individualswith prior exposure to HIV-1 and/or HIV-2 may be due toantigen and antibody levels that are below the limit ofdetection of this assay.The [employer] Alinity HIV Ag/Ab Combo assay result andsupplemental assay results should be interpreted inconjunction with the patient's clinical presentation,history and other laboratory results. If the results areinconsistent with clinical evidence, additional testing issuggested to confirm the result. Blood Venous blood specimen / Unknown 04/08/2024 11:52 AM EDT 04/08/2024 12:58 PM EDT Alba So NP LAB BLOOD ORDERABLES Final Resu lt [facility] [address] [place] [address] [phone] from Last 3 Months or Most Recently Relevant to Health Maintenance Insurance [employer] Care Teams Teacher Of The Deaf/Hard Of Hearing Relationship Specialty Start Date End Date Alba So NP [address] [place], [place] PCP - General Family Medicine 04/14/24
== END 2025-08-11 15:12 | disposition home or self-care (01) ==
LOC: HO.HHCL 15:11
PROVIDERS: PCP Internal Medicine; Visit Provider Internal Medicine
DX: Z13.89 Encounter for screening for other disorder (principal)

== ENCOUNTER 2025-08-13 09:15 | Emergency (ER) | payer MEDICAID, SELFPAY ==
--- OUTSIDE RECORDS SUMMARY | 2025-08-11 14:20 | XMS_ITS | Encounter Summary ---
Author Organization [employer] Address [address] [facility] 7t [place] [address] Care Team Providers Care Putty Worker Name Role Phone Alba So GENEVA Primary Care Provider Reason for Referral * Consultation (Routine) - Pending Review Specialty Diagnoses / Procedures Referred By Merle calvillo Referred To Contact Orthopaedic Surgery Diagnoses Finger pain, left Tenosynovitis of finger Daniela Vaughn MD [address] [place] [phone] Phone: tel: fax: Referral ID Status Reason Start Date Expiration Date Visits Requested Visits Authorized [id number] Pending Review Specialty Services Required 08/11/2026 1 1 Encounter Details Date Type Department Care Team ([facility] st Contact Info) Description 08/11/2025 2:20 PM EDT Office Visit [facility] [address] [place] [address] [phone] Daniela Vaughn MD [address] [place] [address] [phone] Finger pain, left (Primary Dx); Varicose veins [...] 2:00 PM EST Office Visit [facility] [address] [place] [address] Alba So NP [address] [place] [address] Scheduled Orders Name Type Priority Associated Diagnoses [...] Procedure Name Priority Date/Time Associated Diagnosis Comments HEPATITIS PANEL, GENERAL Routine 08/11/2025 3:17 PM EDT Tenosynovitis of finger CBC WITH AUTO DIFFERENTIAL Routine 08/11/2025 3:17 PM EDT Tenosynovitis of finger SED RATE BY MODIFIED WESTERGREN Routine 08/11/2025 3:17 PM EDT Tenosynovitis of finger RHEUMATOID FACTOR Routine 08/11/2025 3:1 7 PM EDT Tenosynovitis of finger C-REACTIVE PROTEIN Routine 08/11/2025 3: 17 PM EDT Tenosynovitis of finger URIC ACID Routine 08/11/2025 3:17 PM EDT Tenosynovitis of finger XR FINGERS 2+ VIEWS LEFT Routine 08/11/2025 2:58 PM EDT Finger pain, left documented in this encounter Results * (ABNORMAL) Hepatitis Panel, General (08/11/2025 3:17 PM EDT) Hepatitis A IgM Nonreactive Nonreactive [facility] Comment:IgM antibodies to DARDEN V not detected; does not exclude earlyacute or recovered HAV infection. ~Hepatitis B Surface Antibody REACTIVE Nonreactive [facility] Comment:REACTIVE: > 11.99 mI U/mL Hepatitis B Core Antibody Nonreactive Nonreactive [facility] Hepatitis C Antibody Reactive(A) Nonreactive [facility] Comment:Presumptive evidence of antibodies to HCV. Hepatitis B Surface Ag Negative Negative [facility] Blood 08/11/2025 3:17 PM EDT 08/11/2025 6:18 PM EDT us Daniela Vaughn MD LAB BLOOD ORDERABLES Fin al Result [facility] [address] [place] [address] [phone] * (ABNORMAL) CBC auto differential (08/11/2025 3:17 PM EDT) White Blood Count 13.4(H) 4.8 - 10.8 X10*3/uL [facility] Red Blood Count 4.86 4.60 - 5.80 X10*6/uL [facility] Hemoglobin 12.0(L) 14.0 - 18.0 g/dl [facility] Hematocrit 38.1(L) 42.0 - 52.0 % [facility] Mean Corpuscular Volume 78.4(L) 80.0 - 98.0 fL [facility] Mean Corpuscular Hemoglobin 24.7(L) 27.0 - 33.0 pg [facility] Mean Corpuscular HGB Conc 31.5 31.0 - 36.0 g/dl [facility] Red Cell Distribution Width 25.9(H) 11.0 - 16.0 % [facility] Platelet Count 144(L) 160 - 400 X10*3/uL [facility] Neutrophils Percent Auto 61.5 45 - 73 % [facility] Imm Gran Pct Auto 2.2(H) 0.0 - 0.4 % [facility] Lymphocytes Percent Auto 19.8(L) 20 - 40 % [facility] Monocytes Percent Auto 12.3(H) 2 - 11 % [facility] Eosinophils Percent Auto 3.6 0 - 4 % [facility] Basophils Percent Auto 0.6 0 - 2 % [facility] NRBC Pct Auto 0.0 0.0 - 0.2 /100WBC [facility] Neutrophils Absolute Auto 8.3 2.0 - 8.3 x10*3/uL [facility] Imm Gran Abs Auto 0.29(H) 0.00 - 0.03 X10*3/uL [facility] Lymphocytes Absolute Auto 2.7 1.2 - 4.9 X10*3/uL [facility] Monocytes Absolute Auto 1.7(H) 0.1 - 1.2 X10*3/uL [facility] Eosinophils Absolute Auto 0.5(H) 0.0 - 0.4 X10*3/uL [facility] Basophils Absolute Auto 0.1 0.0 - 0.2 X10*3/uL [facility] NRBC Abs Auto 0.000 0.0 - 0.012 X10*3/uL [facility] Blood Venous blood specimen / Unknown 08/11/2025 3:17 PM EDT 08/11/2025 4:07 PM EDT Daniela Vaughn MD LAB BLOOD ORDERABLES Thierno nicole Result - Final Performing Organization Address City/[facility]/ZIP Co de Phone Number [facility] [address] [place] [phone] * (ABNORMAL) Uric acid (08/11/2025 3:17 PM EDT) Uric Acid 9.2(H) 3.4 - 7.0 mg/dL [facility] Blood Venous blood specimen / Unknown 08/11/2025 3:17 PM EDT 08/11/2025 6:18 PM EDT Daniela Vaughn MD LAB BLOOD ORDERABLES Fin al Result Performing Organization Address City/[facility]/ZIP Co de Phone Number [facility] [address] [place] [phone] * Rheumatoid Factor (08/11/2025 3:17 PM EDT) Rheumatoid Factor <13.0 <15.0 IU/mL [facility] Blood Venous blood specimen / Unknown 08/11/2025 3:17 PM EDT 08/11/2025 6:18 PM EDT Daniela Vaughn MD LAB BLOOD ORDERABLES Fin al Result Performing Organization Address City/[facility]/ZIP Co de Phone Number [facility] [address] [place] [phone] * (ABNORMAL) C-reactive Protein (08/11/2025 3:17 PM EDT) C Reactive Protein 6.24(H) < or = 0.50 mg/dL [facility] Blood Venous blood specimen / Unknown 08/11/2025 3:17 PM EDT 08/11/2025 6:18 PM EDT Daniela Vaughn MD LAB BLOOD ORDERABLES Fin al Result Performing Organization Address [facility] Co de Phone Number [facility] [address] [place] [phone] [phone] * Sed Rate by Modified Westergren (08/11/2025 3:17 PM EDT) Pathologist [facility] Erythrocyte Sedimentation Rate 9 0 - 15 MM/HR [facility] Comment:Patients with polycy themia and many hemoglobin abnormalitiesmay have depressed sed rates whereas patients with anemiamay have elevated sed rates. Blood Venous blood specimen / Unknown 08/11/2025 3:17 PM EDT 08/11/2025 4:07 PM EDT us Daniela Vaughn MD LAB BLOOD ORDERABLES Fin al Result Performing Organization Address [facility] Co de Phone Number [facility] [address] [place] [phone] * XR Fingers 2+ Views Left (08/11/2025 2:58 PM EDT) Anatomical Region Laterality Modality Upper Extremities, Fingers Left Radio graphic Imaging 08/11/2025 2:58 PM EDT Narrative 08/11/2025 3:06 PM EDT [address] [address] XRay Report Signed Patient: Norberto Marquez MR#: [id number] : 1990 Acct:[id number] Age/Sex: 34 / M ADM Date: 08/11/25 Loc: [facility] Attending Dr: Daniela Vaughn MD Ordering Physician: Daniela Vaughn MD Date of Service: 08/11/25 Procedure(s): XR finger LT min 2V Accession Number(s): [id number] cc: Daniela Vaughn MD Reason for Exam: [...] 08/11/25 1503 DD/ 1458 TD/TT: 08/11/25 1448 Supervisor Bleach Plant: MICHAEL Procedure Note Donotuseinterpreter, Image - 08/11/[address] [address] XRay Report Signed Patient: Zluly Marquez#: [id number] : 1990Acct:[id number] Age/Sex: 34 / MADM Date: 08/11/25 Loc: [facility] Attending Dr: Daniela Vaughn MD Ordering Physician: Daniela Vaughn MD Date of Service: 08/11/25 Procedure(s): XR finger LT min 2V Accession Number(s): [id number] cc: Daniela Vaughn MD Reason for Exam: [...] 08/11/25 1503 DD/ 1458 TD/TT: 08/11/25 1448 Supervisor Bleach Plant: MICHAEL Daniela Vaughn MD IMG XR PROCEDURES Final [...] documented as of this encounter Care Teams Putty Worker Relationship Specialty Start Date End Date Alba So NP [address] [place] [phone] PCP - General Family Medicine 04/14/24 documented as of this encounter
[2025-08-13 09:19] VITALS: BP 140/75; PULSE 98; RESP 20; TEMP 36.3; O2SAT 92; BMI 29.6
--- OUTSIDE RECORDS SUMMARY | 2025-08-13 09:36 | XMS_ITS | Encounter Summary ---
Author Organization [employer] Address [address] [facility] [address] [place] [address] Care Team Providers Care Manager Of Radiology Name Role Phone Nirali Lott Primary Care Provider [phone] Alba So NP Primary Care Provider [phone] Reason for Referral * Consultation (Routine) - Closed Specialty Diagnoses / Procedures Referred By Merle t Referred To Contact Hand Surgery Diagnoses Pain in finger of left hand Nirali Lott FNP [address] [place] [address] Phone: tel: fax: [facility] Orth[facility]ics [address] [place] [address] Phone: tel: Referral ID Status Reason Start Date Expiration Date V isits Requested Visits Authorized [id number] Closed Specialty Services Required 12/23/2023 12/22/2024 6 6 Encounter Details Date Type Department Care Team (Late st Contact Info) Description 12/23/2023 Orders Only [facility] [address] [place] [address] Nirali Lott FNP [address] [place] [address] Pain in finger of left hand (Primary [...] Description 09/25/2025 2:00 PM EST Office Visit [facility] [address] [place] [address] Alba So NP [address] [place] [address] Scheduled Referrals Name Type Priority Associated Diagnoses [...] documented as of this encounter Care Teams Manager Of Radiology Relationship Specialty Start Date End Date Nirali Lott FNP [address] [place] [address] PCP - General Family Medicine 07/09/23 04/13/24 Alba So NP [address] [place] [address] PCP - General Family Medicine 04/14/24 documented as of this encounter
--- OUTSIDE RECORDS SUMMARY | 2025-08-13 09:36 | XMS_ITS | Encounter Summary ---
Author Organization [employer] Address [address] [facility] [address] [place] [address] Care Team Providers Care [employer] Name Role Phone Nirali LottP Primary Care Provider [phone] Alba So NP Primary Care Provider [phone] Reason for Visit * Reason Onset Date Comments PT1 10/02/2023 Encounter Details Date Type Department Care Team ([facility] st Contact Info) Description 10/02/2023 Telephone [facility] [address] [place] [address] Nirali Lott FNP [address] [place], [place] [phone] PT1 Social History Tobacco Use Types Packs/Day [...] 10/02/2023 11:00 AM EST PT-1 Request Number [id number] is Pending * Telephone Encounter - Christine Mak - 10/02/2023 10:32 AM EST Tc alanna Cruz with ICP requesting PT1 transportation. Date: 10/20/2022 Time: 10:15 Visits: 12 a year Address: [address] [place] [address] Facility[facility] Chair: n/a Stretch Machine Operator Needed: n/a documented in this encounter Plan of Treatment Upcoming Encounters Date Type Department Care Team (Late st Contact Info) Description 09/25/2025 2:00 PM EST Office Visit [facility] [address] [place] [address] Alba So NP [address] [place] [address] documented as of this encounter Visit Diagnoses Not on filedocumented in this encounter Additional Health Concerns Assessment Noted Time PHQ-9 Depression Total Score: 0 06/03/20 23 10:05 AM EDT documented as of this encounter Care Teams [employer] Relationship Specialty Start Date End Date Nirali Lott FNP [address] [place] [address] PCP - General Family Medicine 07/09/23 04/13/24 Alba So NP [address] [place] [phone] PCP - General Family Medicine 04/14/24 documented as of this encounter
--- OUTSIDE RECORDS SUMMARY | 2025-08-13 09:36 | XMS_ITS | Encounter Summary ---
Author Organization [employer] Address [address] [facility] [address] [place] [address] Care Team Providers Care Pan [place] Name Role Phone Alba So GENEVA Primary Care Provider [phone] Encounter Details Date Type Department Care Team (Late st Contact Info) Description 04/26/2024 Orders Only [facility] [address] [place] [address] Varun Givens, PharmD [address] [place] [address] Social History Tobacco Use Types Packs/Day Years [...] [facility] [address] [place] [address] Alba So NP [address] [place] [address] documented as of this encounter Visit Diagnoses Not on filedocumented in this encounter Additional Health Concerns Assessment Noted Time PHQ-9 Depression Total Score: 0 06/03/20 23 10:05 AM EDT documented as of this encounter Care Teams Pan [place] Relationship Specialty Start Date End Date Alba So NP [address] [place] [address] PCP - General Family Medicine 04/14/24 documented as of this encounter
--- OUTSIDE RECORDS SUMMARY | 2025-08-13 09:36 | XMS_ITS | Encounter Summary ---
Author Organization [email or web address] Address [address] [facility] 7t [place] [address] Care Team Providers Care Dispute Resolution Specialist Name Role Phone Nirali LottP Primary Care Provider [phone] Alba So NP Primary Care Provider [phone] Reason for Visit * Reason Onset Date Comments Referral 10/16/2023 Encounter Details Date Type Department Care Team ([facility] st Contact Info) Description 10/16/2023 Telephone [facility] [address] [place] [address] Nirali Lott FNP [address] [place] [address] Referral Social History Tobacco Use Types Packs/Day [...] - 10/16/2023 10:22 AM EST Tc from [facility] never received referral. documented in this encounter Plan of Treatment Upcoming Encounters Date Type Department Care Team (Late st Contact Info) Description 09/25/2025 2:00 PM EST Office Visit [facility] [address] [place] [address] Alba So NP [address] [place] [address] documented as of this encounter Visit Diagnoses Not on filedocumented in this encounter Additional Health Concerns Assessment Noted Time PHQ-9 Depression Total Score: 0 06/03/20 23 10:05 AM EDT documented as of this encounter Care Teams Dispute Resolution Specialist Relationship Specialty Start Date End Date Nirali Lott FNP [address] [place] [address] PCP - General Family Medicine 07/09/23 04/13/24 Alba So NP [address] [place] [address] PCP - General Family Medicine 04/14/24 documented as of this encounter
--- OUTSIDE RECORDS SUMMARY | 2025-08-13 09:36 | XMS_ITS | Encounter Summary ---
Author Organization [employer] Address [address] 7[address] [place] [address] Care Team Providers Care Night Shift Supervisor Name Role Phone Nirali Lott Primary Care Provider [phone] Alba So NP Primary Care Provider [phone] Encounter Details Date Type Department Care Team (Late st Contact Info) Description 10/27/2023 Orders Only [facility] [address] [place] [address] Nirali Lott FNP [address] [place] [address] Infective endocarditis of tricuspid valve (Primary Dx) [...] Description 09/25/2025 2:00 PM EST Office Visit [facility] [address] [place], [place] [phone] Alba So NP [address] [place] [address] documented as of this encounter Procedures Procedure Name Priority Date/Time Associated Diagnosis Comments CT LIVER 3 PHASE Routine 10/27/2023 4:35 PM EST documented in this encounter Results * CT liver 3 phase (10/27/2023 4:35 PM EST) Anatomical Region Laterality Modality Liver Computed Tomogra phy 10/27/2023 4:35 PM EST Narrative 11/02/2023 11:06 AM EST [address] [address] [address] Scan Report Signed Patient: Norberto Marquez MR#: [id number] : 1990 Acct:[id number] Age/Sex: 33 / M ADM Date: 10/27/23 Loc: HO.CT Attending Dr: Randa Chisholm MD Ordering Physician: Randa Chisholm MD Date of Service: 10/27/23 Procedure(s): CT liver 3 phase Accession Number(s): [id number] cc: Randa Chisholm MD; [facility] EXAMINATION: CT ABDOMEN without and WITH CONTRAST [...] in OV> 11/02/23 1101 DD/ 1635 TD/TT: Dietary Aid: SS Procedure Note Donotuseinterpreter, Image - 11/03/[address] [place] [address] [address] Scan Report Signed Patient: Zully Marquez#: [id number] : 1990Acct:[id number] Age/Sex: 33 / MADM Date: 10/27/23 Loc: HO.CT Attending Dr: Randa Chisholm MD Ordering Physician: Randa Chisholm MD Date of Service: 10/27/23 Procedure(s): CT liver 3 phase Accession Number(s): [id number] cc: Randa Chisholm MD; [facility] EXAMINATION: CT ABDOMEN without and WITH CONTRAST [...] in OV> 11/02/23 1101 DD/ 1635 TD/TT: Dietary Aid: ELIEZER [facility] External Provider IMG CT PROCEDURES Final Result documented in this encounter Visit Diagnoses Diagnosis Infective endocarditis of tricuspid valve- Primary documented in this encounter Additional Health Concerns Assessment Noted Time PHQ-9 Depression Total Score: 0 06/03/20 10:05 AM EDT documented as of this encounter Care Teams Night Shift Supervisor Relationship Specialty Start Date End Date Nirali Lott FNP [address] [place] [address] PCP - General Family Medicine 07/09/23 04/13/24 Alba So NP [address] [place] [address] PCP - General Family Medicine 04/14/24 documented as of this encounter
--- OUTSIDE RECORDS SUMMARY | 2025-08-13 09:36 | XMS_ITS | Encounter Summary ---
Author Organization [employer] Address [address] [facility] 7t [place] [address] Care Team Providers Care Soap Maker Name Role Phone Alba So GENEVA Primary Care Provider [phone] Encounter Details Date Type Department Care Team [...] Description 09/25/2025 2:00 PM EST Office Visit [facility] [address] [place] [address] Alba So NP [address] [place] [address] documented as of this encounter Visit Diagnoses Not on filedocumented in this encounter Additional Health Concerns Assessment Noted Time PHQ-9 Depression Total Score: 18 024 11:56 AM EST documented as of this encounter Care Teams Soap Maker Relationship Specialty Start Date End Date Alba So NP [address] [place] [address] PCP - General Family Medicine 04/14/24 documented as of this encounter
--- OUTSIDE RECORDS SUMMARY | 2025-08-13 09:36 | XMS_ITS | Encounter Summary ---
Author Organization [facility] Address [address] [facility] [address] [place] [address] Phone Care Team Providers Care Trench Digger Name Role Phone Pcp, Unknown Primary Care Provider Unavailabl e Encounter Details Date Type Department Care Team (Late st Contact Info) Description 02/14/2020 Transcribe Orders [facility] Specimen Processing [address] [place] [address] Donell Villalobos, DO [address] [address] [place] [address] [email or web address] Encounter for health examination of prisoner (Primary [...] ALKALINE PHOSPHATASE 138(H) 39 - 117 U/L [facility] TOTAL BILIRUBIN 0.5 0.0 - 1.2 mg/dL [facility] DIRECT BILIRUBIN 0.2 0 - 0.3 mg/dL [facility] Bilirubin (Indirect) 0.3 0 - 1.5 mg/dL [facility] AST 114(H) 0 - 37 U/L [facility] ALT 235(H) 0 - 40 U/L [facility] TOTAL PROTEIN 6.8 6.5 - 8.0 g/dL [facility] ALBUMIN 4.1 3.9 - 4.8 g/dL [facility] GLOBULIN 2.7 1 - 4.8 g/dL [facility] A/G Ratio 1.52 1.00 - 4.80 RATIO [facility] Blood 02/15/2020 10:0 4 AM EDT 02/15/2020 11:32 AM EDT us Donell A Bigda DO LAB BLOOD ORDERABLES Final Resul t Performing Organization Address City/State/[facility] Co de Phone Number [facility] [address] [place] [address] documented in this encounter Visit Diagnoses Diagnosis Encounter for health examination of prisoner- Primary documented in this encounter Additional Health Concerns Infection Onset Date Last Indicated Resolved Time CoV-Risk 03/27/2023 03/27/2023 04/07/2023 1:22 AM EDT documented as of this encounter Care Teams Trench Digger Relationship Specialty Start Date End Date Pcp, Unknown PCP - General 12/06/19 documented as of this encounter Additional Source Comments The information contained in this document represents components of the legal health record. It is not the complete legal health record.[facility]
--- OUTSIDE RECORDS SUMMARY | 2025-08-13 09:36 | XMS_ITS | Encounter Summary ---
Author Organization [employer] Address [address] [facility] 7t [place] [address] Care Team Providers Care Ocean Freight Manager Name Role Phone Alba So GENEVA Primary Care Provider [phone] Encounter Details Date Type Department Care Team (Late st Contact Info) Description 08/11/2025 Orders Only [facility] MEDICINE [address] [place] [address] Daniela Vaughn MD [address] [place] [address] Social History Tobacco Use Types Packs/Day Years [...] 2:00 PM EST Office Visit [facility] [address] [place] [address] Alba So NP [address] [place] [address] documented as of this encounter Procedures Procedure Name Priority Date/Time Associated Diagnosis Comments SLIDE REVIEW Routine 08/11/2025 3:17 PM EDT documented in this encounter Results * Slide Review (08/11/2025 3:17 PM EDT) Slide Review VERIFIED [facility] 08/11/2025 3:17 PM EDT 08/11/2025 4:07 PM EDT us Daniela Vaughn MD LAB BLOOD ORDERABLES Fin al Result [facility] [address] [place] [address] [phone] documented in this encounter Visit Diagnoses Not on filedocumented in this encounter Additional Health Concerns Assessment Noted Time PHQ-9 Depression Total Score: 18 024 11:56 AM EST documented as of this encounter Care Teams Ocean Freight Manager Relationship Specialty Start Date End Date Alba So NP [address] [place] [address] PCP - General Family Medicine 04/14/24 documented as of this encounter
--- OUTSIDE RECORDS SUMMARY | 2025-08-13 09:36 | XMS_ITS | Encounter Summary ---
Author Organization [facility] Address [address] [place] [address] Phone Care Team Providers Care Floral Decorator Name Role Phone Pcp, Unknown Primary Care Provider Unavailabl e Encounter Details Date Type Department Care Team (Late st Contact Info) Description 04/08/2023 Transcribe Orders [facility] Specimen Processing [address] [place] [address] Martinez Rendon MD [address] [facility] [address], [address] [place] [address] [email or web address] Congestive heart failure, unspecified HF chronicity, [...] No Risk Indicated 04/11/2023 7:23 PM EDT iAsha Zelaya, RN * [place] Suicide Severity Rating Scale (Screener/Recent Self-Report) Question [...] EDT) SODIUM 140 133 - 146 mmol/L [facility] POTASSIUM 3.8 3.3 - 5.1 mmol/L [facility] CHLORIDE 108 96 - 108 mmol/L [facility] CO2 18(L) 21 - 35 mmol/L [facility] BUN 9 6 - 19 mg/dL [facility] CREATININE 0.70 0.5 - 1.5 mg/dL [facility] GLUCOSE 78 70 - 99 mg/dL [facility] ALBUMIN 3.7(L) 3.9 - 4.8 g/dL [facility] TOTAL PROTEIN 6.9 6.5 - 8.0 g/dL [facility] CALCIUM 8.9 8.4 - 10.3 mg/dL [facility] ALKALINE PHOSPHATASE 144(H) 39 - 117 U/L [facility] TOTAL BILIRUBIN 1.5(H) 0.0 - 1.2 mg/dL [facility] AST 13 0 - 37 U/L [facility] ALT 7 0 - 40 U/L [facility] GLOBULIN 3.2 1 - 4.8 g/dL [facility] EGFR >120 >59 mL/min/1.7 3m2 [facility] Comment:Estimated glomerular filtration rate calculated using the CKD-EPI refit equation. ANION GAP 18 10 - 20 mmol/L [facility] 04/08/2023 5:55 AM EDT 04/08/2023 8:22 AM EDT us Martinez Rendon MD LAB BLOOD ORDERABLES Final Resul t [address] [address] documented in this encounter Visit Diagnoses Diagnosis Congestive heart failure, unspecified HF chronicity, unspecified heart failure type- Primary documented in this encounter Care Teams Floral Decorator Relationship Specialty Start Date End Date Pcp, Unknown PCP - General 12/06/19 documented as of this encounter Additional Source Comments The information contained in this document represents components of the legal health record. It is not the complete legal health record.[facility]
--- OUTSIDE RECORDS SUMMARY | 2025-08-13 09:36 | XMS_ITS | Encounter Summary ---
Author Organization [employer] Address [address] [facility] 7t [place] [address] Care Team Providers Care Workers Compensation Attorney Name Role Phone Nirali LottP Primary Care Provider [phone] Alba So NP Primary Care Provider [phone] Reason for Visit * Reason Onset Date Comments Hospital Follow-up 04/05/2024 Encounter Details Date Type Department Care Team ([facility] st Contact Info) Description 04/05/2024 Telephone [facility] MEDICINE [address] [place] [address] Nirali Lott FNP [address] [place] [address] Hospital Follow-up Social History Tobacco Use Types [...] Miscellaneous Notes * Telephone Encounter - Jose Salnias - 04/05/2024 12:52 PM EDT Tc from pt requesting a HDF appt. Hospital: [facility] Date of admission: 03/30 Discharge date: 04/01 Diagnosed: Chest Pain documented in this encounter Plan of Treatment Upcoming Encounters Date Type Department Care Team (Late st Contact Info) Description 09/25/2025 2:00 PM EST Office Visit [facility] MEDICINE [address] [place] [address] Alba So NP [address] [place] [address] documented as of this encounter Visit Diagnoses Not on filedocumented in this encounter Additional Health Concerns Assessment Noted Time PHQ-9 Depression Total Score: 0 06/03/20 10:05 AM EDT documented as of this encounter Care Teams Workers Compensation Attorney Relationship Specialty Start Date End Date Nirali Lott FNP [address] [place] [address] PCP - General Family Medicine 07/09/23 04/13/24 Alba So NP [address] [place] [address] PCP - General Family Medicine 04/14/24 documented as of this encounter
--- OUTSIDE RECORDS SUMMARY | 2025-08-13 09:37 | XMS_ITS | Clinical Summary ---
Author Organization [employer] Address [address] [facility] [address] [place] [address] Care Team Providers Care Battery Builder Name Role Phone Alba So GENEVA Primary Care Provider [phone] Allergies No known active allergies Medications [...] and at bedtime for anxiety. 06/02/20 Active azithromycin (Zithromax) 250 MG tablet Take [...] 1 tablet by mouth 2 times daily. 03/28/ 025 Discontinued(Re order (will not trigger notification to Pharmacy)) Albuterol Sulfate (ProAir RespiClick) 108 (90 Base) MCG/ACT aerosol powder TAKE 2 PUFFS BY MOUTH EVERY 4 TO 6 HOURS NEEDED FOR SHORTNESS OF BREATH /WHEEZE 1 each 02/21/20 025 Discontinued(Me d list cleanup (will not trigger notification to Pharmacy)) predniSONE (Deltasone) 20 MG tablet Take 2 tablets (40 mg) by mouth Once per day for 5 days. 10 tablet 08/07/20 025 Active Problems Problem Noted Date Diagnosed Date [...] treatment, ambulance called and expect called to [facility]. 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 Assessment & Plan (11/21/2024 7:05 PM EST): Pt with complicated hx and difficulty with out patient compliance Meds reconciled with [facility] discharge documents and refilled Pt prefers to seek care at [facility] today for ongoing cardiac issues Endocarditis [...] he gets home to be transported to [facility] for stitching as he did not want to be transported directly from the clinic Hx of pulmonary embolus 04/18/2023 Overview (04/18/2023): Treating w/ Xarelto 20 mg daily while at [facility] 03/16/23-04/15/23 (anticipated discharge date) Anemia, chronic disease 10/09/2022 Symptomatic anemia 10/09/2022 Overview (10/09/2022): Acute anemia related to tooth extractions on 10/01/22 while still on xarelto for anticoagulation. Taken to [place] ED, bleeding gums, not able to stop with pressure Hemoglobin 3 Received 1 prbc transfusion Transferred to [facility] for admission on 10/02/22. Received another transfusion Discharged 10/06/22 Ascites 07/21/2022 Bacteremia 07/21/2022 Overview (04/18/2023): Recurrent bacteremia and endocarditis found 03/04/23. Admitted. Left AMA on 03/14/23 Returned 03/15/23. Admitted again with plan to transfer to [facility], [facility], to continue antibiotics until 04/15 to [...] dependence (CMS/HCC) 06/27/2022 Overview (08/23/2024): Admitted to [facility] for rehab Treated w/ Methadone 40 mg at [facility] 03/16/23-04/15/23 -[facility] 08/23/24 Assessment & Plan (08/23/2024 2:45 PM EST): Admitted to [facility] for rehab Treated w/ Methadone 40 mg at [facility] 03/16/23-04/15/23 -referred to [facility] 08/23/24 Assessment & [...] 2020 Overview (10/09/2022): 07/16/22 - Presented to [facility] ED with hypotension, found to be in septic shock 07/20/22 - Left hospital AMA before completing IV antibiotics. Blood cultures positive for GBS and required pressor support when he arrived. 07/21/22 - Mother took Pt to [facility] ED since he left [facility] AMA. Pt IV drug use while at [...] treatment or fibrosis score as of 04/13/23 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 I will place a referral to our [facility] hep c team. Encounters Date Type Department Care Team Description 08/11/2025 2:20 PM EDT Office Visit [facility] [address] [place] [phone] Daniela Vaughn MD Finger pain, left (Primary Dx); Varicose veins of left lower extremity with inflammation; Tenosynovitis of finger 08/11/2025 Orders Only [facility] [address] [place] [phone] Daniela Vaughn MD 08/11/2025 Travel 08/09/[address] [address] Humaira Bruno RN hep C tx 08/07/2025 10:20 AM EDT [facility] [address] [address] Isamar Adams MD Acute bronchitis, unspecified organism (Primary Dx) 08/07/2025 Telephone [facility] [address] [place] [phone] Isamar Adams MD 08/07/2025 Travel 08/03/[address] [address] Alba So NP ER Follow-up 07/26/[address] [address] Humaira Bruno, NABEEL Hep C tx 07/25/[address] [address] Daniela Vaughn MD DME L&C Compression stockings 07/25/[address] [address] Daniela Vaughn MD RX Compresson stockings 07/24/[address] [phone] Alba So NP Durable Medical Equipment 07/20/2025 Results Follow-Up [address] [phone] Alba So NP XR Chest 2 Views 07/19/2025 10:00 AM EDT Office Visit [address] [address] Viviana Cruz FNP Hospital discharge follow-up (Primary Dx); Hemorrhage of varicose veins of lower extremity, bilateral; History of positive hepatitis C 07/19/2025 Orders Only [facility] External Provider, [facility] 07/19/2025 Travel 07/18/2025 9:20 AM EDT [facility] [address] [address] Nighat Galloway MD Hx pulmonary embolism (Primary Dx); Shortness of breath; Hx of heart failure 07/18/2025 Travel 07/17/[address] [address] Malika Garnett, PharmD 07/15/2025 10:40 AM EDT [facility] [address] [address] Daniela Vaughn MD Venous stasis dermatitis of both lower extremities (Primary Dx); Bleeding from varicose veins of left lower extremity 07/15/2025 Travel 07/11/2025 Patient Outreach [address] [phone] Alba So NP Pre-visit Planning (HDF- scheduled with the direct line and SDOH screening completed on 01/19/2025) 07/07/2025 Results Follow-Up [address] [phone] Alba So NP CBC auto differential, Complete Blood Count Manual Diff, Prothrombin Time-INR, Additional followed-up results: 7 06/06/2025 Orders Only GENERIC EXTERNAL DATA DEPARTMENT Provider, Generic External Data 06/04/2025 Orders Only GENERIC EXTERNAL DATA DEPARTMENT Provider, Generic External Data 05/30/2025 Telephone [facility] [address] [place] [address] Leela Gamino RN from Last 3 Months [...] Description 09/25/2025 2:00 PM EST Office Visit [facility] [address] [place] [address] Alba So NP [address] [place] [address] Health Maintenance Due Date Last Done Comments [...] SLIDE REVIEW Routine 08/11/2025 3:17 PM EDT HEPATITIS PANEL, GENERAL Routine 08/11/2025 3:17 PM EDT Tenosynovitis of finger CBC WITH AUTO DIFFERENTIAL Routine 08/11/2025 3:17 PM EDT Tenosynovitis of finger URIC ACID Routine 08/11/2025 3:17 PM EDT Tenosynovitis of finger RHEUMATOID FACTOR Routine 08/11/2025 3:1 7 PM EDT Tenosynovitis of finger C-REACTIVE PROTEIN Routine 08/11/2025 3: 17 PM EDT Tenosynovitis of finger SED RATE [...] time period is included. Slide Review VERIFIED [facility] 08/11/2025 3:17 PM EDT 08/11/2025 4:07 PM EDT Daniela Vaughn MD LAB BLOOD ORDERABLES Fin al Result [facility] [address] [place] [phone] * (ABNORMAL) Hepatitis Panel, General (08/11/2025 3:17 PM EDT) Hepatitis A IgM Nonreactive Nonreactive [facility] Comment:IgM antibodies to DARDEN V not detected; does not exclude earlyacute or recovered HAV infection. ~Hepatitis B Surface Antibody REACTIVE Nonreactive [facility] Comment:REACTIVE: > 11.99 mI U/mL Hepatitis B Core Antibody Nonreactive Nonreactive [facility] Hepatitis C Antibody Reactive(A) Nonreactive [facility] Comment:Presumptive evidence of antibodies to HCV. Hepatitis B Surface Ag Negative Negative [facility] Blood 08/11/2025 3:17 PM EDT 08/11/2025 6:18 PM EDT us Daniela Vaughn MD LAB BLOOD ORDERABLES Fin al Result [facility] [address] [place] [phone] [phone] * (ABNORMAL) CBC auto differential (08/11/2025 3:17 PM EDT) Only the most recent of4 resultswithin the time period is included. White Blood Count 13.4(H) 4.8 - 10.8 X10*3/uL [facility] Red Blood Count 4.86 4.60 - 5.80 X10*6/uL [facility] Hemoglobin 12.0(L) 14.0 - 18.0 g/dl [facility] Hematocrit 38.1(L) 42.0 - 52.0 % [facility] Mean Corpuscular Volume 78.4(L) 80.0 - 98.0 fL [facility] Mean Corpuscular Hemoglobin 24.7(L) 27.0 - 33.0 pg [facility] Mean Corpuscular HGB Conc 31.5 31.0 - 36.0 g/dl [facility] Red Cell Distribution Width 25.9(H) 11.0 - 16.0 % [facility] Platelet Count 144(L) 160 - 400 X10*3/uL [facility] Neutrophils Percent Auto 61.5 45 - 73 % [facility] Imm Gran Pct Auto 2.2(H) 0.0 - 0.4 % [facility] Lymphocytes Percent Auto 19.8(L) 20 - 40 % [facility] Monocytes Percent Auto 12.3(H) 2 - 11 % [facility] Eosinophils Percent Auto 3.6 0 - 4 % [facility] Basophils Percent Auto 0.6 0 - 2 % [facility] NRBC Pct Auto 0.0 0.0 - 0.2 /100WBC [facility] Neutrophils Absolute Auto 8.3 2.0 - 8.3 x10*3/uL [facility] Imm Gran Abs Auto 0.29(H) 0.00 - 0.03 X10*3/uL [facility] Lymphocytes Absolute Auto 2.7 1.2 - 4.9 X10*3/uL [facility] Monocytes Absolute Auto 1.7(H) 0.1 - 1.2 X10*3/uL [facility] Eosinophils Absolute Auto 0.5(H) 0.0 - 0.4 X10*3/uL [facility] Basophils Absolute Auto 0.1 0.0 - 0.2 X10*3/uL [facility] NRBC Abs Auto 0.000 0.0 - 0.012 X10*3/uL [facility] Blood Venous blood specimen / Unknown 08/11/2025 3:17 PM EDT 08/11/2025 4:07 PM EDT Daniela Vaughn MD LAB BLOOD ORDERABLES Thierno nicole Result - Final Performing Organization Address [facility]/ZIP Co de Phone Number [facility] [address] [place] [phone] * Sed Rate by Modified Adalidergren (08/11/2025 3:17 PM EDT) Pathologist [facility] Erythrocyte Sedimentation Rate 9 0 - 15 MM/HR [facility] Comment:Patients with polycy themia and many hemoglobin abnormalitiesmay have depressed sed rates whereas patients with anemiamay have elevated sed rates. Blood Venous blood specimen / Unknown 08/11/2025 3:17 PM EDT 08/11/2025 4:07 PM EDT Daniela Vaughn MD LAB BLOOD ORDERABLES Fin al Result Performing Organization Address [facility]/ZIP Co de Phone Number [facility] [address] [place] [phone] * Rheumatoid Factor (08/11/2025 3:17 PM EDT) Rheumatoid Factor <13.0 <15.0 IU/mL [facility] Blood Venous blood specimen / Unknown 08/11/2025 3:17 PM EDT 08/11/2025 6:18 PM EDT Daniela Vaughn MD LAB BLOOD ORDERABLES Fin al Result Performing Organization Address [facility] Co de Phone Number [facility] [address] [place] [phone] * (ABNORMAL) C-reactive Protein (08/11/2025 3:17 PM EDT) C Reactive Protein 6.24(H) < or = 0.50 mg/dL [facility] Blood Venous blood specimen / Unknown 08/11/2025 3:17 PM EDT 08/11/2025 6:18 PM EDT Daniela Vaughn MD LAB BLOOD ORDERABLES Fin al Result Performing Organization Address [facility] Co de Phone Number [facility] [address] [place] [phone] * (ABNORMAL) Uric acid (08/11/2025 3:17 PM EDT) Uric Acid 9.2(H) 3.4 - 7.0 mg/dL [facility] Blood Venous blood specimen / Unknown 08/11/2025 3:17 PM EDT 08/11/2025 6:18 PM EDT Daniela Vaughn MD LAB BLOOD ORDERABLES Fin al Result Performing Organization Address [facility] Co de Phone Number [facility] [address] [place] [phone] * XR Fingers 2+ Views Left (08/11/2025 2:58 PM EDT) Anatomical Region Laterality Modality Upper Extremities, Fingers Left Radio graphic Imaging 08/11/2025 2:58 PM EDT Narrative 08/11/2025 3:06 PM EDT [facility] [address] [place] [address] XRay Report Signed Patient: Norberto Marquez MR#: [id number] : 1990 Acct:[id number] Age/Sex: 34 / M ADM Date: 08/11/25 Loc: HO.HHCX Attending Dr: Daniela Vaughn MD Ordering Physician: Daniela Vaughn MD Date of Service: 08/11/25 Procedure(s): XR finger LT min 2V Accession Number(s): [id number] cc: Daniela Vaughn MD Reason for Exam: [...] 08/11/25 1503 DD/ 1458 TD/TT: 08/11/25 1448 Staff Nurse: MICHAEL Procedure Note Donotuseinterpreter, Image - 08/11/2025 [facility] [address] [place] [address] XRay Report Signed Patient: Marcelo MarquezR#: [id number] : 1990Acct:[id number] Age/Sex: 34 / MADM Date: 08/11/25 Loc: HO.HHCX Attending Dr: Daniela Vaughn MD Ordering Physician: Daniela Vaughn MD Date of Service: 08/11/25 Procedure(s): XR finger LT min 2V Accession Number(s): [id number] cc: Daniela Vaughn MD Reason for Exam: [...] 08/11/25 1503 DD/ 1458 TD/TT: 08/11/25 1448 Staff Nurse: MICHAEL Daniela Vaughn MD IMG XR PROCEDURES [...] Opiate Screen Urine Not Detected Not Detect [facility] Comment:Opiate cut-off is 30 0 ng/mL.Positive results are unconfirmed and should not be used fornon-medical purposes. Barbiturates, Urine Not Detected Not Detect [facility] Comment:Barbiturate cut-off is 200 ng/mL.Positive results are unconfirmed and should not be used fornon-medical purposes. Phencyclidine Screen Urine Not Detected Not Detect [facility] Comment:Phencyclidine cut-of f is 25 ng/mL.Positive results are unconfirmed and should not be used fornon-medical purposes. Amphetamine Screen Urine Not Detected Not Detect [facility] Comment:Amphetamine cut-off is 1000 ng/mL.Positive results are unconfirmed and should not be used fornon-medical purposes. Benzodiazepines Screen Urine Not Detected Not Detect [facility] Comment:Benzodiazepine cut-o ff is 200 ng/mL.Positive results are unconfirmed and should not be used fornon-medical purposes. Cocaine Screen Urine Not Detected Not Detect [facility] Comment:Cocaine cut-off is 3 00 ng/mL.Positive results are unconfirmed and should not be used fornon-medical purposes. Cannabinoid Screen Urine Not Detected Not Detect [facility] Comment:Cannabinoid cut-off is 50 ng/mL.Positive results are unconfirmed and should not be used fornon-medical purposes. Methadone Screen, Urine Positive(A) Not Detect ng/mL [facility] Comment:Methadone cut-off is 300 ng/mL.Positive results are unconfirmed and should not be used fornon-medical purposes. FENTANYL URINE Not Detected Not Detect [facility] Comment:Fentanyl cut-off is 1 ng/mL.Positive results are unconfirmed and should not be used fornon-medical purposes. Oxycodone Urine Screen Not Detected Not Detect ng/mL [facility] Comment:Oxycodone cut-off is 100 ng/mL.Positive results are unconfirmed and should not be used fornon-medical purposes. Buprenorphine Screen Not Detected Not Detect ng/mL [facility] Comment:Buprenorphine cut-of f is 5 ng/mL.Positive results are unconfirmed and should not be used fornon-medical purposes. 07/19/2025 8:51 PM EDT 07/19/2025 8:52 PM EDT us Generic External Data Provider LAB URINE ORDERAB LES Final Result Performing Organization Address City/State/[facility] Co de Phone Number [facility] [address] [place] [phone] * XR Chest 2 Views (07/19/2025 6:24 PM EDT) Anatomical Region Laterality Modality Chest Radiographic Ladan ging 07/19/2025 6:24 PM EDT Narrative 07/19/2025 6:26 PM EDT [address] [address] XRay Report Signed Patient: Norberto Marquez MR#: [id number] : 1990 Acct:[id number] Age/Sex: 34 / M ADM Date: 07/19/25 Loc: HO.ED Attending Dr: Ordering Physician: Alana Careron Date of Service: 07/19/25 Procedure(s): XR chest 2V Accession Number(s): [id number] cc: [facility]; Alana Carreon Reason for Exam: SOB [...] in OV> 07/19/251824 DD/ 23 TD/TT: 07/19/251823 Staff Nurse: Procedure Note Donotuseinterpreter, Image - 07/19/[address] [address] XRay Report Signed Patient: Zully Marquez#: [id number] : 1990Acct:[id number] Age/Sex: 34 / MADM Date: 07/19/25 Loc: .ED Attending Dr: Ordering Physician: Alana Carreon Date of Service: 07/19/25 Procedure(s): XR chest 2V Accession Number(s): [id number] cc: [facility]; Alana Carreon Reason for Exam: SOB [...] in OV> 07/19/251824 DD/ 23 TD/TT: 07/19/251823 Staff Nurse: us [facility] External Provider IMG XR PROCEDURES Final Result * Influenza A B2 ID NOW ([facility]) (07/19/2025 6:22 PM EDT) IDNOW SERIAL# [id number] [facility] Influenza A Negative Negative [facility] Influenza B2 Negative Negative [facility] Influenza A B2 Note See Note [facility] Comment:The [facility] ID NOW In fluenza [...] LAB MICROBIOLOGY - GENERAL ORDERABLES Final Result [facility] [address] [place] [phone] * COVID-19 ID NOW ([employer]) (07/19/2025 6:22 PM EDT) IDNOW SERIAL# [id number] [facility] COVID-19 TEST Negative Negative [facility] COVID-19 NOTE See Note [facility] Comment: Results are for the identification of SARS-CoV2 RNA. TheSARS-CoV2 RNA is generally detectable in respiratory samplesduring the acute phase of infection. Positive results areindicative of the presence of SARS-CoV-2 RNA; clinicalcorrelation with patient history and other diagnosticinformation is necessary to determine patient infectionstatus. Positive results do not rule out bacterial infectionor co- infection with other viruses.Testing facilities within the [facility] and [facility] are required to report all positive results [...] use by authorized laboratories.Testing performed on the [employer] ID NOW utilizing NAAT. 07/19/2025 6:22 PM EDT 07/19/2025 6:27 PM EDT Generic External Data Provider LAB MOLECULAR [place] GNOSTICS ORDERABLES Final Result Performing Organization Address [facility] Co de Phone Number [facility] [address] [place] [phone] * High Sensitivity Troponin I (07/19/2025 6:22 PM EDT) Only the most recent of3 resultswithin the time period is included. TROPONIN I HIGH SENSITIVITY 3.3 <3.5 - 35.0 ng/L [facility] Comment:The [facility] high sens itivity Troponin-I results should beused in conjunction with other diagnostic information suchas ECG, clinical observations and information, and patientsymptoms to aid in the diagnosis of SC. 07/19/2025 6:22 PM EDT 07/19/2025 6:27 PM EDT Generic External Data Provider LAB BLOOD ORDERAB LES Final Result Performing Organization Address [facility] Phone Number [facility] [address] [place] [phone] * Ethanol (07/19/2025 6:22 PM EDT) Only the most recent of2 resultswithin the time period is included. ETHANOL (MG/DL) IN SER/PLAS <10 mg/dL [facility] Comment:Serum/plasma ethanol results are to be used formedical/treatment purposes only. 07/19/2025 6:22 PM EDT 07/19/2025 6:27 PM EDT Generic External Data Provider LAB BLOOD ORDERAB LES Final Result Performing Organization Address [facility] Co de Phone Number [facility] [address] [place] [phone] * NT-proBNP (07/19/2025 6:22 PM EDT) Pathologist [facility] NT-proBNP 251.0 <300 pg/mL [facility] Comment:Reference Range:Age Group (years) NT-proBNP (pg/ml) InterpretationAll <300 Negative: HF unlikelyFor patients presenting to the ED with clinical suspicion ofnew onset or worsening HF, see below:18 to <50 >299.9 to <450.0 Grayzone: [id number] to 75 >299.9 to <900.0 other causes of>75 >299.9 to <1800.0 NT-proBNP [id number] to <50 >449.9 Positive: HF [id number] >899.9>75 >1799.9Note: Elevated NT-proBNP levels should be interpreted inthe context of other clinical information. 07/19/2025 6:22 PM EDT 07/19/2025 6:27 PM EDT us Generic External Data Provider LAB BLOOD ORDERAB LES Final Result [facility] [address] [place] [phone] * Magnesium (07/19/2025 6:22 PM EDT) Only the most recent of3 resultswithin the time period is included. Pathologist [facility] Magnesium 1.6 1.6 - 2.6 mg/dL [facility] 07/19/2025 6:22 PM EDT 07/19/2025 6:27 PM EDT Generic External Data Provider LAB BLOOD ORDERAB LES Final Result Performing Organization Address City/[facility]/ZIP Co de Phone Number [facility] [address] [place] [phone] * (ABNORMAL) Ammonia, Plasma (07/19/2025 6:22 PM EDT) Pathologist [facility] Ammonia (P) 59(H) 13 - 55 umol/L [facility] 07/19/2025 6:22 PM EDT 07/19/2025 6:27 PM EDT Generic External Data Provider LAB BLOOD ORDERAB LES Final Result Performing Organization Address [facility] Co de Phone Number [facility] [address] [place] [phone] * (ABNORMAL) Hepatic Function Panel (07/19/2025 6:22 PM EDT) Bilirubin, Total 0.9 0.0 - 1.0 mg/dL [facility] Bilirubin, Direct 0.5 0.0 - 0.5 mg/dL [facility] Aspartate Amino Transferase 94(H) 5 - 37 U/L [facility] Alanine Aminotransferase 81(H) 0 - 40 U/L [facility] Total Protein 7.1 6.5 - 8.0 g/dL [facility] Albumin Level 4.0 3.5 - 5.0 g/dL [facility] Alkaline Phosphatase 273(H) 39 - 117 U/L [facility] 07/19/2025 6:22 PM EDT 07/19/2025 6:27 PM EDT Generic External Data Provider LAB BLOOD ORDERAB LES Final Result Performing Organization Address [facility] Co de Phone Number [facility] [address] [place] [phone] * (ABNORMAL) Basic Metabolic Panel (07/19/2025 6:22 PM EDT) Sodium 138 135 - 145 mmol/L [facility] Potassium 4.5 3.3 - 5.1 mmol/L [facility] Chloride 109(H) 96 - 108 mmol/L [facility] Carbon Dioxide 21(L) 22 - 29 mmol/L [facility] Anion Gap 13 12 - 20 [facility] Urea Nitrogen (BUN) 21(H) 9 - 16 mg/dL [facility] Creatinine, Serum 0.79 0.5 - 1.4 mg/dL [facility] Creatinine Clr Calc Pharmacy 126.2 [facility] Comment:eGFR (calculated fro m the MDRD study equation) and eCrCl(calculated from the Cockcroft-Gault equation) are based ondifferent parameters and may not yield comparable results.If eCrCl result is absurd, please check patient'sheight/weight. Estimated Glomerular Filt Rate >60 [facility] Comment:Chronic Kidney Disea se: Estimated GFR < 60 mL/min/1.44x9Mmgelq Kidney Disease: Estimated GFR < 15 mL/min/1.73m2 Glucose 98 60 - 115 mg/dL [facility] Calcium 9.6 8.4 - 10.2 mg/dL [facility] 07/19/2025 6:22 PM EDT 07/19/2025 6:27 PM EDT us Generic External Data Provider LAB BLOOD ORDERAB LES Final Result [facility] [address] [place] [phone] * Influenza B (ID NOW Rapid Molecular) (07/18/2025 12:57 PM EDT) Influenza B Negative Negative, Indeterminate [facility] Swab 07/18/2025 12:5 7 PM EDT Nighat Galloway MD POINT OF CARE TEST ENTER/E DIT ORDERABLES Final Result Performing Organization Address City/[facility]/ZIP Co de Phone Number [facility] [address] [place] [address] [phone] * Influenza A (ID NOW Rapid Molecular) (07/18/2025 12:57 PM EDT) Influenza A Negative Negative, Indeterminate [facility] Swab 07/18/2025 12:5 7 PM EDT Nighat Galloway MD POINT OF CARE TEST ENTER/E DIT ORDERABLES Final Result [facility] [address] [place] [phone] * CT Head w/o Contrast (06/08/2025 10:44 AM EDT) Anatomical Region Laterality Modality Head, Neck Computed Tomogra phy 06/08/2025 10:4 4 AM EDT Narrative 06/08/2025 12:17 PM EDT [address] [address] [address] Scan Report Signed Patient: Norberto Marquez MR#: [id number] : 1990 Acct:[id number] Age/Sex: 34 / M ADM Date: 06/06/25 Loc: [facility] 471-[address]: David Altman MD Ordering Physician: David Altman MD Date of Service: 06/08/25 Procedure(s): CT head/brain wo IV con Accession Number(s): [id number] cc: [facility]; David Altman MD Report Number: [id number]: Total DLP = 1453.00 mGy-cm EXAMINATION: CT [...] 06/08/25 1215 DD/ 1044 TD/TT: 06/08/25 1158 Staff Nurse: Procedure Note Donotuseinterpreter, Image - 06/08/[address] [address] [address] Scan Report Signed Patient: Zully Marquez#: [id number] : 1990Acct:[id number] Age/Sex: 34 / MADM Date: 06/06/25 Loc: [facility] 471-[address]: David Altman MD Ordering Physician: David Altman MD Date of Service: 06/08/25 Procedure(s): CT head/brain wo IV con Accession Number(s): [id number] cc: [facility]; David Altman MD Report Number: [id number]: Total DLP = 1453.00 mGy-cm EXAMINATION: CT [...] 06/08/25 1215 DD/ 1044 TD/TT: 06/08/25 1158 Staff Nurse: [facility] External Provider IMG CT PROCEDURES Final Result * CT Abdomen Pelvis w/o Contrast (06/07/2025 10:44 AM EDT) Anatomical Region Laterality Modality Body, Pelvis, Abdomen Computed T omography 06/07/2025 10:4 4 AM EDT Narrative 06/08/2025 12:28 PM EDT [place] [address] [address] Scan Report Signed Patient: Norberto Marquez MR#: [id number] : 1990 Acct:[id number] Age/Sex: 34 / M ADM Date: 06/06/25 Loc: [facility] 471-[address]: David Altman MD Ordering Physician: Allison Mejía Date of Service: 06/07/25 Procedure(s): CT abdomen pelvis wo IV con Accession Number(s): [id number] [facility] Report Number: [id number]: Total DLP = 1453.00 mGy-cm EXAMINATION: CT [...] 06/08/25 1224 DD/ 1044 TD/TT: 06/08/25 1158 Staff Nurse: Procedure Note Donotuseinterpreter, Image - 06/08/[address] [address] [address] Scan Report Signed Patient: Zully Marquez#: [id number] : 1990Acct:[id number] Age/Sex: 34 / MADM Date: 06/06/25 Loc: [facility] 471-[address]: David Altman MD Ordering Physician: Allison Mejía Date of Service: 06/07/25 Procedure(s): CT abdomen pelvis wo IV con Accession Number(s): [id number] [facility]: [facility] Report Number: [id number]: Total DLP = 1453.00 mGy-cm EXAMINATION: CT [...] 06/08/25 1224 DD/ 1044 TD/TT: 06/08/25 1158 Staff Nurse: [facility] External Provider IMG CT PROCEDURES Final Result * [facility] US Lower Extremity Venous Duplex Bilateral (06/07/2025 8:50 AM EDT) 06/07/2025 8:50 AM EDT Narrative [facility] - 06/07/2025 9:16 AM EDT [place] [address] Ultrasound Report Signed Patient: Norberto Marquez MR#: [id number] : 1990 Acct:[id number] Age/Sex: 34 / M ADM Date: 06/06/25 Loc: [facility] [place]: David Altman MD Ordering Physician: Allison Mejía [employer]- Date of Service: 06/07/25 Procedure(s): US venous duplex LE BI Accession Number(s): [id number] [facility]: [facility]; [facility] EXAMINATION: US TRIPLEX LOWER EXTREMITY, BILATERAL [...] Cory Krishnan MD 06/07/2025 09:13 AM EDT RP Dictated By: Cory Krishnan MD Signed By: <Electronically signed by Cory Krishnan MD in OV> 06/07/2513 DD/ 0850 TD/TT: 06/07/25 0900 Staff Nurse: Procedure Note Donotuseinterpreter, Image - 06/07/[address] [address] Ultrasound Report Signed Patient: Zully Marquez#: [id number] : 1990Acct:[id number] Age/Sex: 34 / MADM Date: 06/06/25 Loc: [facility]-[address]: David Altman MD Ordering Physician: Allison Mejía [facility] Date of Service: 06/07/25 Procedure(s): US venous duplex LE BI Accession Number(s): [id number] cc: [facility]; [facility] EXAMINATION: US TRIPLEX LOWER EXTREMITY, BILATERAL [...] Cory Krishnan MD 06/07/2025 09:13 AM EDT RP Dictated By: Cory Krishnan MD Signed By: <Electronically signed by Cory Krishnan MD in OV> 06/07/25 0913 DD/ 0850 TD/TT: 06/07/25 0900 Staff Nurse: [facility] External Provider CV VASC ULAR PROCEDURES Final Result [facility] [address] [place] [phone] * XR Tibia Fibula 2 Views Left (06/07/2025 7:15 AM EDT) Anatomical Region Laterality Modality Lower Extremities, Lower Leg Left Rad iographic Imaging 06/07/2025 7:15 AM EDT Narrative 06/07/2025 8:29 AM EDT [address] [address] XRay Report Signed Patient: Norberto Marquez MR#: [id number] : 1990 Acct:[id number] Age/Sex: 34 / M ADM Date: 06/06/25 [place] [facility] [place]: David Altman MD Ordering Physician: Allison Mejía Date of Service: 06/07/25 Procedure(s): XR tibia fibula LT 2V Accession Number(s): [id number] cc: Allison Mejía [facility]; [facility] EXAMINATION: XR TIBIA AND FIBULA, LEFT [...] 06/07/25 0826 DD/ 0715 TD/TT: 06/07/25 0732 Staff Nurse: Procedure Note Donotuseinterpreter, Image - 06/07/[address] [address] XRay Report Signed Patient: Marcelo MarquezR#: [id number] : 1990Acct:[id number] Age/Sex: 34 / MADM Date: 06/06/25 [facility]: David Altman MD Ordering Physician: Allison Mejía [facility] Date of Service: 06/07/25 Procedure(s): XR tibia fibula LT 2V Accession Number(s): [id number] cc: Kym,[facility]; [facility] EXAMINATION: XR TIBIA AND FIBULA, LEFT [...] 06/07/25 0826 DD/ 0715 TD/TT: 06/07/25 0732 Staff Nurse: us [facility] External Provider IMG XR PROCEDURES Final Result * CTA Chest PE Protocal (06/06/2025 11:03 PM EDT) Anatomical Region Laterality Modality Body, Chest Computed Tomogra phy 06/06/2025 11:0 3 PM EDT Narrative 06/06/2025 11:05 PM EDT [address] [address] [address] Scan Report Signed Patient: Norberto Marquez MR#: [id number] : 1990 Acct:[id number] Age/Sex: 34 / M ADM Date: 06/06/25 Loc: HO.ED Attending Dr: Ordering Physician: Yanet Jang DO Date of Service: 06/06/25 Procedure(s): CT angio chest PE protocol Accession Number(s): [id number] cc: Yanet Jang DO; [facility] Report Number: [id number]: Total DLP = 421.00 mGy-cm CLINICAL HISTORY: elevated d-dimer, hx IVDA CT angiography chest with contrast. 3D Postprocessing. Comparison: CT/AR/SR - CT ANGIO CHEST PE PROTOCOL - [...] in OV> 06/06/252303 DD/ 02 TD/TT: 06/06/252302 Staff Nurse: Procedure Note Donotuseinterpreter, Image - 06/06/[address] [place] [address] [address] Scan Report Signed Patient: Zully Marquez#: [id number] : 1990Acct:[id number] Age/Sex: 34 / MADM Date: 06/06/25 Loc: .ED Attending Dr: Ordering Physician: Yanet Jang DO Date of Service: 06/06/25 Procedure(s): CT angio chest PE protocol Accession Number(s): [id number] cc: Yanet Jang DO; [facility] Report Number: [id number]: Total DLP = 421.00 mGy-cm CLINICAL HISTORY: elevated d-dimer, hx IVDA CT angiography chest with contrast. 3D Postprocessing. Comparison: CT/AR/SR - CT ANGIO CHEST PE PROTOCOL - [...] in OV> 06/06/252303 DD/ 02 TD/TT: 06/06/252302 Staff Nurse: us [facility] External Provider IMG CT PROCEDURES Edited Result - Final * (ABNORMAL) Urinalysis, Complete, with Reflex to Culture (06/06/2025 9:11 PM EDT) Only the most recent of2 resultswithin the time period is included. Color Urine Yellow [facility] Appearance Urine Clear [facility] PH 6.0 5.0 - 9.0 [facility] Glucose Urine UA Negative Negative mg/dL [facility] Urine Blood Trace(A) Negative [facility] Specific [place] - Urine 1.015 1.005 - 1.025 [facility] Urine Protein Negative Neg-Trace mg/dL [facility] Urine Ketones Negative Negative mg/dL [facility] Nitrite Urine Negative Negative [facility] Leukocyte Esterase Urine Negative Negative [facility] RBC Urine 6-10(A) 0 - 2 /HPF [facility] Urine WBC 0-5 0 - 5 /HPF [facility] Urine Squamous Epithelial Cell 0-2 0 - 2 /HPF [facility] Urine Bacteria None Seen None Seen [facility] Hyaline Casts, Urine 0-2 0 - 2 /LPF [facility] 06/06/2025 9:11 PM EDT 06/06/2025 9:15 PM EDT Narrative [facility] - 06/06/2025 10:06 PM EDT [id number], [employer] Generic External Data Provider LAB URINE ORDERAB LES Final Result Performing Organization Address [facility] de Phone Number [facility] [address] [place] [phone] * D Dimer High Sensitivity (06/06/2025 3:18 PM EDT) Only the most recent of2 resultswithin the time period is included. Pathologist [facility] D Dimer High Sensitivity 1,296 NG/ML [facility] Comment:D-DIMER HS REFERENCE RANGENote: Our assay [...] ORDERAB LES Final Result Performing Organization Address [facility] de Phone Number [facility] [address] [place] [address] [phone] * (ABNORMAL) Prothrombin Time-INR (06/06/2025 3:18 PM EDT) Pathologist [facility] Prothrombin Time 25.0(H) 10.9 - 12.4 SEC [facility] INTERNATIONAL NORM RATIO 2.2(H) 0.9 - 1.1 [facility] Comment:INTERNATIONAL NORMAL IZED RATIO (INR) REFERENCE [...] Provider LAB BLOOD ORDERAB LES Final Result [facility] [address] [place] [phone] * (ABNORMAL) Comprehensive Metabolic Panel (06/06/2025 3:18 PM EDT) Only the most recent of2 resultswithin the time period is included. Sodium 141 135 - 145 mmol/L [facility] Potassium 3.5 3.3 - 5.1 mmol/L [facility] Chloride 112(H) 96 - 108 mmol/L [facility] Carbon Dioxide 20(L) 22 - 29 mmol/L [facility] Anion Gap 13 12 - 20 [facility] Urea Nitrogen (BUN) 21(H) 9 - 16 mg/dL [facility] Creatinine, Serum 0.79 0.5 - 1.4 mg/dL [facility] Creatinine Clr Calc Pharmacy 116.6 [facility] Comment:eGFR (calculated fro m the MDRD study equation) and eCrCl(calculated from the Cockcroft-Gault equation) are based ondifferent parameters and may not yield comparable results.If eCrCl result is absurd, please check patient'sheight/weight. Estimated Glomerular Filt Rate >60 [facility] Comment:Chronic Kidney Disea se: Estimated GFR < 60 mL/min/1.72k1Haubol Kidney Disease: Estimated GFR < 15 mL/min/1.73m2 Glucose 89 60 - 115 mg/dL [facility] Calcium 8.3(L) 8.4 - 10.2 mg/dL [facility] Bilirubin, Total 1.0 0.0 - 1.0 mg/dL [facility] Aspartate Amino Transferase 41(H) 5 - 37 U/L [facility] Alanine Aminotransferase 25 0 - 40 U/L [facility] Total Protein 7.0 6.5 - 8.0 g/dL [facility] Albumin Level 3.4(L) 3.5 - 5.0 g/dL [facility] Alkaline Phosphatase 227(H) 39 - 117 U/L [facility] 06/06/2025 3:18 PM EDT 06/06/2025 3:25 PM EDT us Generic External Data Provider LAB BLOOD ORDERAB LES Final Result Performing Organization Address City/[facility]/ZIP Co de Phone Number [facility] [address] [place] [address] [phone] * Glucose, Whole Blood (06/04/2025 7:02 PM EDT) Only the most recent of2 resultswithin the time period is included. Glucose, Whole Blood 115 60 - 115 mg/dL [facility] Comment:METER #: [id number] 06/04/2025 7:02 PM EDT 06/04/2025 7:06 PM EDT us Generic External Data Provider LAB BLOOD ORDERAB LES Final Result Performing Organization Address City/[facility]/ZIP Co de Phone Number [facility] [address] [place] [address] [phone] * Blood Culture (Second) (06/04/2025 4:39 PM EDT) Blood Venous blood specimen / Unknown 06/04/2025 4:39 PM EDT 06/04/2025 4:46 PM EDT Comment:Blood Narrative [facility] - 06/09/2025 6:47 PM EDT Blood Culture (Second) No growth after 5 days. Specimen Source: Blood us Generic External Data Provider LAB MICROBIOLOGY - GENERAL ORDERABLES Final Result Performing Organization Address [facility] Co de Phone Number [facility] [address] [place] [phone] * (ABNORMAL) Creatine Kinase, Total (06/04/2025 4:39 PM EDT) Creatine Kinase Total 504(H) 38 - 174 U/L [facility] 06/04/2025 4:39 PM EDT 06/04/2025 4:46 PM EDT Generic External Data Provider LAB BLOOD ORDERAB LES Final Result Performing Organization Address [facility] Co de Phone Number [facility] [address] [place] [phone] * Lower Extremity Venous Duplex (06/04/2025 4:06 PM EDT) 06/04/2025 4:06 PM EDT Narrative [facility] - 06/05/2025 8:20 AM EDT [address] [address] Ultrasound Report Signed Patient: Norberto Marquez MR#: [id number] : 1990 Acct:[id number] Age/Sex: 34 / M ADM Date: 06/04/25 Loc: .ED Attending Dr: Ordering Physician: Fartun Farris Date of Service: 06/04/25 Procedure(s): US venous duplex [facility] Accession Number(s): [id number] cc: [facility]; Fartun Farris EXAMINATION: US LOWER EXTREMITY [...] OV> 06/05/25816 DD/ 1606 TD/TT: 06/04/25 1612 Staff Nurse: Procedure Note Donotuseinterpreter, Image - 06/05/2025 [place] [address] Ultrasound Report Signed Patient: Zully Marquez#: [id number] : 1990Acct:[id number] Age/Sex: 34 / MADM Date: 06/04/25 Loc: .ED Attending Dr: Ordering Physician: Fartun Farris Date of Service: 06/04/25 Procedure(s): US venous duplex LE LT Accession Number(s): [id number] cc: [facility]; Fartun Farris EXAMINATION: US LOWER EXTREMITY [...] 06/05/25 0817 DD/ 1606 TD/TT: 06/04/25 1612 Staff Nurse: [facility] External Provider CV VASC ULAR PROCEDURES Final Result Performing Organization Address [facility]/ZIP Co de Phone Number [facility] [address] [place] [phone] * Blood Culture (First) (06/04/2025 3:15 PM EDT) Blood Venous blood specimen / Unknown 06/04/2025 3:15 PM EDT 06/04/2025 3:26 PM EDT Comment:Blood Narrative [facility] - 06/09/2025 5:27 PM EDT Blood Culture (First) No growth after 5 days. Specimen Source: Blood Generic External Data Provider LAB MICROBIOLOGY - GENERAL ORDERABLES Final Result Performing Organization Address [facility] Co de Phone Number [facility] [address] [place] [phone] * Lactic Acid (06/04/2025 3:15 PM EDT) Lactic Acid 1.4 0.5 - 2.0 mmol/L [facility] 06/04/2025 3:15 PM EDT 06/04/2025 3:26 PM EDT Generic External Data Provider LAB BLOOD ORDERAB LES Final Result Performing Organization Address [facility] Co de Phone Number [facility] [address] [place] [phone] * HIV-1/2 Antigen and Antibodies, Fourth Generation, with Reflexes (04/08/2024 11:52 AM EDT) HIV AB/AG Nonreactive Nonreactive [facility] Comment:HIV-1 p24 Ag and/or HIV-1/HIV-2 Ab not detected.A test result that is nonreactive does not exclude thepossibility of exposure to or infection with HIV-1 and/orHIV-2. Nonreactive results in this assay for individualswith prior exposure to HIV-1 and/or HIV-2 may be due toantigen and antibody levels that are below the limit ofdetection of this assay.The Bday HIV Ag/Ab Combo assay result andsupplemental assay results should be interpreted inconjunction with the patient's clinical presentation,history and other laboratory results. If the results areinconsistent with clinical evidence, additional testing issuggested to confirm the result. Blood Venous blood specimen / Unknown 04/08/2024 11:52 AM EDT 04/08/2024 12:58 PM EDT Alba So NP LAB BLOOD ORDERABLES Final Resu lt [facility] [address] [place] [phone] from Last 3 Months or Most Recently Relevant to Health Maintenance Insurance [facility] Care Teams Battery Builder Relationship Specialty Start Date End Date Alba So NP [address] [place] [phone] PCP - General Family Medicine 04/14/24
--- OUTSIDE RECORDS SUMMARY | 2025-08-13 09:37 | XMS_ITS | Encounter Summary ---
Author Organization [employer] Address [address] [facility] [address] [place] [address] Care Team Providers Care Industrial Energy Engineer Name Role Phone Alba So NP Primary Care Provider [phone] Reason for Visit * Reason Onset Date Comments ER Follow-up 08/03/2025 Encounter Details Date Type Department Care Team ([facility] st Contact Info) Description 08/03/[address] [facility] [address] [place] [address] Alba So NP [address] [place] [address] ER Follow-up Social History Tobacco Use Types [...] 08/08/2025 12:32 PM EDT Call returned to [facility]. Eirka reports that pt is taking meds prescribed [...] 11:33 AM EDT Tc from Josse with [facility] calling back regarding prior message. Contact josse at [phone] Confidential VM you can leave apt date and time and she will make sure pt arrives to apt. * Telephone Encounter - Beth Fong RN - 08/03/2025 11:35 AM EDT Tc to pt who reports to still be symptomatic post discharge from [facility] due to a varicose vein burstedin their leg. Mom reports pt is at a program in [place] and provided a phone number for us to call.No answer, and VM does not sound secure enough for aligner typewriter to LVM to return call and ask [...] ED visit on : Date: 08/01 Hospital: [facility] Seen for: pop vertical vein, pain in leg Symptomatic Yes *if yes message should go to Triage Patient advised will forward to team nurse for follow up documented in this encounter Plan of Treatment Upcoming Encounters Date Type Department Care Team (Late st Contact Info) Description 09/25/2025 2:00 PM EST Office Visit [facility] [address] [place] [address] Alba So NP [address] [place] [address] documented as of this encounter Visit Diagnoses Not on filedocumented in this encounter Additional Health Concerns Assessment Noted Time PHQ-9 Depression Total Score: 18 024 11:56 AM EST documented as of this encounter Care Teams Industrial Energy Engineer Relationship Specialty Start Date End Date Alba So NP [address] [place] [address] PCP - General Family Medicine 04/14/24 documented as of this encounter
--- OUTSIDE RECORDS SUMMARY | 2025-08-13 09:37 | XMS_ITS | Encounter Summary ---
Author Organization [employer] Address [address] [facility] [address] [place] [address] Care Team Providers Care Minister Name Role Phone Mack Jin WHITTEN Primary Care Provider Unavail able Nirali Lott Primary Care Provider [phone] Alba So NP Primary Care Provider [phone] Encounter Details Date Type Department Care Team ([facility] Contact Info) Description 06/08/2023 Orders Only [facility] [address] [place], [place] [phone] Nirali Lott FNP [address] [place] [address] Chronic hepatitis C without hepatic coma (CMS/HCC) [...] Upcoming Encounters Date Type Department Care Team ([facility] Contact Info) Description 09/25/2025 2:00 PM EST Office Visit [facility] [address] [place] [address] Alba So NP [address] [place] [address] documented as of this encounter Visit Diagnoses Diagnosis Chronic hepatitis C without hepatic coma (HCC)- Primary documented in this encounter Additional Health Concerns Assessment Noted Time PHQ-9 Depression Total Score: 0 06/03/20 10:05 AM EDT documented as of this encounter Care Teams Minister Relationship Specialty Start Date End Date Jin Mack AGNP PCP - General Family Medicine 04/24/23 07/08/23 Nirali Lott FNP [address] [place] [address] PCP - General Family Medicine 07/09/23 04/13/24 Alba So NP [address] [place] [address] PCP - General Family Medicine 04/14/24 documented as of this encounter
--- OUTSIDE RECORDS SUMMARY | 2025-08-13 09:37 | XMS_ITS | Encounter Summary ---
Author Organization [employer] Address [address] [facility] [address] [place] [address] Care Team Providers Care Database Modeler Name Role Phone Alba So FLIGHT DATA TECHNICIAN Primary Care Provider [phone] Reason for Visit * Reason Onset Date Comments hep C tx 08/09/2025 Encounter Details Date Type Department Care Team ([facility] Contact Info) Description 08/09/2025 Telephone [facility] MED[facility]INE [address] [place] [address] Humaira Bruno, RN [address] [place] [address] hep C tx Social History Tobacco Use [...] 09/25/2025 2:00 PM EST Office Visit [facility] [address] [place] [address] Alba So NP [address] [place] [address] documented as of this encounter Visit Diagnoses Not on filedocumented in this encounter Additional Health Concerns Assessment Noted Time PHQ-9 Depression Total Score: 18 024 11:56 AM EST documented as of this encounter Care Teams Database Modeler Relationship Specialty Start Date End Date Alba So NP [address] [place] [address] PCP - General Family Medicine 04/14/24 documented as of this encounter
--- OUTSIDE RECORDS SUMMARY | 2025-08-13 09:37 | XMS_ITS | Encounter Summary ---
Author Organization [employer] Address [address] [facility] [address] [place] [address] Care Team Providers Care Tent Worker Name Role Phone Alba So NP Primary Care Provider [phone] Encounter Details Date Type Department Care Team (Late st Contact Info) Description 07/07/2025 Results Follow-Up [facility] [address] [place] [address] Alba So NP [address] [place] [address] CBC auto differential, Complete Blood Count Manual [...] 2:00 PM EST Office Visit [facility] [address] [place] [address] Alba So NP [address] [place] [address] documented as of this encounter Visit Diagnoses Not on filedocumented in this encounter Additional Health Concerns Assessment Noted Time PHQ-9 Depression Total Score: 18 024 11:56 AM EST documented as of this encounter Care Teams Tent Worker Relationship Specialty Start Date End Date Alba So NP [address] [place] [address] PCP - General Family Medicine 04/14/24 documented as of this encounter
--- OUTSIDE RECORDS SUMMARY | 2025-08-13 09:37 | XMS_ITS | Encounter Summary ---
Author Organization [facility] [facility] Address [address] [facility] 7t [place] [address] Care Team Providers Care Appeals Examiner Name Role Phone Alba So NP Primary Care Provider [phone] Encounter Details Date Type Department Care Team (Late st Contact Info) Description 12/21/2024 Orders Only [facility] [address] [place] [address] Alba So NP [address] [place] [address] Social History Tobacco Use Types Packs/Day Years [...] EST Office Visit [facility] [address] [place] [phone] Alba So NP [address] [place] [address] documented as of this encounter Visit Diagnoses Not on filedocumented in this encounter Additional Health Concerns Assessment Noted Time PHQ-9 Depression Total Score: 18 024 11:56 AM EST documented as of this encounter Care Teams Appeals Examiner Relationship Specialty Start Date End Date Alba So NP [address] [place] [address] PCP - General Family Medicine 04/14/24 documented as of this encounter
--- OUTSIDE RECORDS SUMMARY | 2025-08-13 09:37 | XMS_ITS | Encounter Summary ---
Author Organization [facility] Address [address] [place] [phone] Phone Care Team Providers Care Recorder Helper Gravity Prospecting Name Role Phone Pcp, Unknown Primary Care Provider Unavailabl e Encounter Details Date Type Department Care Team (Late st Contact Info) Description 10/28/2023 Procedure Pass [facility] Endoscopy Admitting Dept Virtual Department [address] [place] [address] Social History Tobacco Use Types Packs/Day Years [...] on filedocumented in this encounter Care Teams Recorder Helper Gravity Prospecting Relationship Specialty Start Date End Date Pcp, Unknown PCP - General 12/06/19 documented as of this encounter Additional Source Comments The information contained in this document represents components of the legal health record. It is not the complete legal health record.[facility]
--- OUTSIDE RECORDS SUMMARY | 2025-08-13 09:37 | XMS_ITS | Encounter Summary ---
Author Organization [facility] Address [address] [place] [phone] Phone Care Team Providers Care Pipe Smoking Machine Operator Name Role Phone Pcp, Unknown Primary Care Provider Unavailabl e Encounter Details Date Type Department Care Team (Late st Contact Info) Description 10/20/2023 Transcribe Orders Virtual Department [address] [place] [address] Lucy Best PA [address] [place], [place] [phone] [email or web address] Anemia, unspecified type (Primary Dx) Social History [...] Primary documented in this encounter Care Teams Pipe Smoking Machine Operator Relationship Specialty Start Date End Date Pcp, Unknown PCP - General 12/06/19 documented as of this encounter Additional Source Comments The information contained in this document represents components of the legal health record. It is not the complete legal health record.[facility]
--- OUTSIDE RECORDS SUMMARY | 2025-08-13 09:37 | XMS_ITS | Encounter Summary ---
Author Organization [employer] Address [address] [facility] 7t [place] [address] Care Team Providers Care Computer Forensic Examiner Name Role Phone Alba So NP Primary Care Provider [phone] Encounter Details Date Type Department Care Team ([facility] st Contact Info) Description 07/20/2025 Results Follow-Up [facility] [address] [place] [address] Alba So NP [address] [place] [address] XR Chest 2 Views Social History Tobacco [...] 2:00 PM EST Office Visit [facility] [address] [place] [address] Alba So NP [address] [place] [address] documented as of this encounter Visit Diagnoses Not on filedocumented in this encounter Additional Health Concerns Assessment Noted Time PHQ-9 Depression Total Score: 18 024 11:56 AM EST documented as of this encounter Care Teams Computer Forensic Examiner Relationship Specialty Start Date End Date Alba So NP [address] [place] [address] PCP - General Family Medicine 04/14/24 documented as of this encounter
--- OUTSIDE RECORDS SUMMARY | 2025-08-13 09:37 | XMS_ITS | Encounter Summary ---
Author Organization [employer] Address [address] [address] [address] 7t [place] [address] Care Team Providers Care Shell Trim Tool Setter Name Role Phone GrahamFabriziomarty Harris IRON MINER Primary Care Provider Madisny Jin [place] Primary Care Provider Unavail Nirali Diaz IRON MINER Primary Care Provider [phone] Alba So NP Primary Care Provider [phone] Encounter Details Date Type Department Care Team (Late st Contact Info) Description 01/05/2023 Orders Only [facility] [address] [place] [address] Nohemi Greene FNP Social History Tobacco Use [...] empyema, recurrent bacteremia and endocarditis,was admitted to [facility] on 07/16/22 for evaluation of chest pain [...] mom and was in a program in [place] and wasdischarged October 23, now lives at [...] Visit [facility] [address] [place] [address] Alba So NP 230 [place], [place] [phone] documented as of this encounter Procedures Procedure [...] EDT 04/13/2023 3:00 PM EDT Comment:Blood Narrative [facility] - 04/18/2023 5:00 PM EDT Blood Culture (Second) No growth after 5 days. Specimen Source: Blood [facility] Exter nal Provider LAB MICROBIOLOGY - GENERAL ORDERABLES Final Result Performing Organization Address [facility]/ZIP Co de Phone Number [facility] [address] [place] [address] [phone] * Blood Culture (First) (04/13/2023 2:20 PM EDT) Blood 04/13/2023 2:20 PM EDT 04/13/2023 3:00 PM EDT Comment:Blood Narrative [facility] - 04/18/2023 5:00 PM EDT Blood Culture (First) No growth after 5 days. Specimen Source: Blood [facility] Exter nal Provider LAB MICROBIOLOGY - GENERAL ORDERABLES Final Result Performing Organization Address [facility]/ZIP Co de Phone Number [facility] [address] [place] [phone] * (ABNORMAL) Urinalysis, Complete, with Reflex to Culture (03/16/2023 6:50 PM EDT) Color Urine Dark Yellow [facility] Appearance Urine Clear [facility] PH 6.5 5.0 - 9.0 [facility] Glucose Urine UA Negative Negative mg/dL [facility] Urine Blood Small (1+)(A) Negative [facility] Specific [place] - Urine 1.015 1.005 - 1.025 [facility] Urine Protein 100 (2+)(A) Neg-Trace mg/dL [facility] Urine Ketones Negative Negative mg/dL [facility] Nitrite Urine Positive(A) Negative [facility] Leukocyte Esterase Urine Small (1+)(A) Negative [facility] RBC Urine >20(A) 0 - 2 /HPF [facility] Urine WBC 6-10(A) 0 - 5 /HPF [facility] Urine Squamous Epithelial Cell 0-2 0 - 2 /HPF [facility] Urine Bacteria None Seen None Seen [facility] Hyaline Casts, Urine 0-2 0 - 2 /LPF [facility] 03/16/2023 6:50 PM EDT 03/16/2023 7:08 PM EDT Narrative [facility] - 03/16/2023 7:57 PM EDT Urine, Clean Catch us [facility] External Provider LAB URI NE ORDERABLES Final Result [facility] [address] [place] [phone] * (ABNORMAL) CBC auto differential (03/16/2023 5:18 PM EDT) White Blood Count 11.0(H) 4.8 - 10.8 X10*3/uL [facility] Red Blood Count 4.07(L) 4.60 - 5.80 X10*6/uL [facility] Hemoglobin 9.7(L) 14.0 - 18.0 g/dl [facility] Hematocrit 30.7(L) 42.0 - 52.0 % [facility] Mean Corpuscular Volume 75.4(L) 80.0 - 98.0 fL [facility] Mean Corpuscular Hemoglobin 23.8(L) 27.0 - 33.0 pg [facility] Mean Corpuscular HGB Conc 31.6 31.0 - 36.0 g/dl [facility] Red Cell Distribution Width 31.5(H) 11.0 - 16.0 % [facility] Platelet Count 597(H) 160 - 400 X10*3/uL [facility] Mean Platelet Volume 9.8 9.4 - 12.4 fL [facility] Neutrophils Percent Auto 60.7 45 - 73 % [facility] Imm Gran Pct Auto 2.0(H) 0.0 - 0.4 % [facility] Lymphocytes Percent Auto 24.7 20 - 40 % [facility] Monocytes Percent Auto 10.5 2 - 11 % [facility] Eosinophils Percent Auto 1.1 0 - 4 % [facility] Basophils Percent Auto 1.0 0 - 2 % [facility] NRBC Pct Auto 0.0 0.0 - 0.2 /100WBC [facility] Neutrophils Absolute Auto 6.7 2.0 - 8.3 x10*3/uL [facility] Imm Gran Abs Auto 0.22(H) 0.00 - 0.03 X10*3/uL [facility] Lymphocytes Absolute Auto 2.7 1.2 - 4.9 X10*3/uL [facility] Monocytes Absolute Auto 1.2 0.1 - 1.2 X10*3/uL [facility] Eosinophils Absolute Auto 0.1 0.0 - 0.4 X10*3/uL [facility] Basophils Absolute Auto 0.1 0.0 - 0.2 X10*3/uL [facility] NRBC Abs Auto 0.000 0.0 - 0.012 X10*3/uL [facility] 03/16/2023 5:18 PM EDT 03/16/2023 5:24 PM EDT us [facility] External Provider LAB BLO OD ORDERABLES Final Result [facility] [address] [place] [phone] * High Sensitivity Troponin I (03/16/2023 5:18 PM EDT) TROPONIN I HIGH SENSITIVITY 11.4 <3.5 - 35.0 ng/L [facility] Comment:The Coley high sens itivity Troponin-I results should beused in conjunction with other diagnostic information suchas ECG, clinical observations and information, and patientsymptoms to aid in the diagnosis of [place]. 03/16/2023 5:18 PM EDT 03/16/2023 5:24 PM EDT [facility] External Provider LAB BLO OD ORDERABLES Final Result Performing Organization Address [facility] Co de Phone Number [facility] [address] [place] [phone] * (ABNORMAL) B Type Natriuretic Peptide (BNP) (03/16/2023 5:18 PM EDT) B Type Natriuretic Peptide 378(H) <100 pg/mL [facility] Comment:For those patients w ho are being treated with Natrecor(nesiritide, recombinant BNP), BNP testing should beperformed at least two hours post treatment in order toensure that only endogenous levels of BNP are detected. 03/16/2023 5:18 PM EDT 03/16/2023 5:24 PM EDT [facility] External Provider LAB BLO OD ORDERABLES Final Result Performing Organization Address [facility] Co de Phone Number [facility] [address] [place] [phone] * (ABNORMAL) Lipase (03/16/2023 5:18 PM EDT) Lipase 168(H) 8 - 78 U/L [facility] 03/16/2023 5:18 PM EDT 03/16/2023 5:24 PM EDT [facility] External Provider LAB BLO OD ORDERABLES Final Result Performing Organization Address [facility] Co de Phone Number [facility] [address] [place] [phone] * (ABNORMAL) Basic Metabolic Panel (03/16/2023 5:18 PM EDT) Sodium 139 135 - 145 mmol/L [facility] Potassium 3.0(L) 3.3 - 5.1 mmol/L [facility] Chloride 106 96 - 108 mmol/L [facility] Carbon Dioxide 20(L) 22 - 29 mmol/L [facility] Anion Gap 16 12 - 20 [facility] Urea Nitrogen (BUN) 8(L) 9 - 16 mg/dL [facility] Creatinine, Serum 0.74 0.5 - 1.4 mg/dL [facility] Creatinine Clr Calc Pharmacy 131.5 [facility] Comment:eGFR (calculated fro m the MDRD study equation) and eCrCl(calculated from the Cockcroft-Gault equation) are based ondifferent parameters and may not yield comparable results.If eCrCl result is absurd, please check patient'sheight/weight. Estimated Glomerular Filt Rate >60 [facility] Comment:NOTE: For -Am erican individuals, multiply the result by 1.210.Chronic Kidney Disease: Estimated GFR < 60 mL/min/1.73g1Xfrfte Kidney Disease: Estimated GFR < 15 mL/min/1.73m2 Glucose 84 60 - 115 mg/dL [facility] Calcium 9.4 8.4 - 10.2 mg/dL [facility] 03/16/2023 5:18 PM EDT 03/16/2023 5:24 PM EDT us [facility] External Provider LAB BLO OD ORDERABLES Final Result [facility] [address] [place] [phone] * (ABNORMAL) Hepatic Function Panel (03/16/2023 5:18 PM EDT) Bilirubin, Total 5.9(H) 0.0 - 1.0 mg/dL [facility] Bilirubin, Direct 3.5(H) 0.0 - 0.5 mg/dL [facility] Aspartate Amino Transferase 19 5 - 37 U/L [facility] Alanine Aminotransferase 13 0 - 40 U/L [facility] Total Protein 7.7 6.5 - 8.0 g/dL [facility] Albumin Level 3.9 3.5 - 5.0 g/dL [facility] Alkaline Phosphatase 154(H) 39 - 117 U/L [facility] 03/16/2023 5:18 PM EDT 03/16/2023 5:24 PM EDT [facility] External Provider LAB BLO OD ORDERABLES Final Result Performing Organization Address [facility] Co de Phone Number [facility] [address] [place] [phone] * Lactic Acid (03/16/2023 5:18 PM EDT) Lactic Acid 1.7 0.5 - 2.0 mmol/L [facility] 03/16/2023 5:18 PM EDT 03/16/2023 5:24 PM EDT [facility] External Provider LAB BLO OD ORDERABLES Final Result Performing Organization Address [facility] Co de Phone Number [facility] [address] [place] [phone] documented in this encounter Visit Diagnoses Not on filedocumented in this encounter Care Teams Shell Trim Tool Setter Relationship Specialty Start Date End Date Megan Stevenson FNP PCP - General Family Medicine 03/27/22 04/23/23 Jin Mack AGNP PCP - General Family Medicine 04/24/23 07/08/23 Nirali Lott FNP [address] [place] [address] PCP - General Family Medicine 07/09/23 04/13/24 Alba So NP [address] [place] [phone] PCP - General Family Medicine 04/14/24 documented as of this encounter
--- OUTSIDE RECORDS SUMMARY | 2025-08-13 09:37 | XMS_ITS | Encounter Summary ---
Author Organization [facility] Address [address] [facility] 7t [place] [address] Care Team Providers Care Production Machinist Name Role Phone Nirali LottP Primary Care Provider [phone] Alba So NP Primary Care Provider [phone] Reason for Visit * Reason Onset Date Comments PT1 08/05/2023 Encounter Details Date Type Department Care Team ([facility] st Contact Info) Description 08/05/2023 Telephone [facility] [address] [place] [address] Nirali Lott FNP [address] [place], [place] [phone] PT1 Social History Tobacco Use Types Packs/Day [...] 08/05/2023 1:12 PM EDT PT-1 Request Number [id number] is Pending * Telephone Encounter - Sage Telles - 08/05/2023 12:36 PM EDT Tc alanna Manley with [facility] Partner requesting a PT1: Name of facility: [facility] Specialty: Consult possible liver transplant Location: [address] [place] [address] Date: 08/12/2023 Time: 11:00 am fax: n/a wheelchair: no Boat Officer: no All future appt's documented in this encounter Plan of Treatment Upcoming Encounters Date Type Department Care Team (Late st Contact Info) Description 09/25/2025 2:00 PM EST Office Visit [facility] [address] [place] [address] Alba So NP [address] [place] [address] documented as of this encounter Visit Diagnoses Not on filedocumented in this encounter Additional Health Concerns Assessment Noted Time PHQ-9 Depression Total Score: 0 06/03/20 10:05 AM EDT documented as of this encounter Care Teams Production Machinist Relationship Specialty Start Date End Date Nirali Lott FNP [address] [place] [address] PCP - General Family Medicine 07/09/23 04/13/24 Alba So NP [address] [place] [address] PCP - General Family Medicine 04/14/24 documented as of this encounter
--- OUTSIDE RECORDS SUMMARY | 2025-08-13 09:37 | XMS_ITS | Encounter Summary ---
Author Organization [employer] Address [address] [facility] [address] 7t [place] [address] Care Team Providers Care Ui Application Developer Name Role Phone Alba So GENEVA Primary Care Provider [phone] Encounter Details Date Type Department Care Team (Late st Contact Info) Description 08/07/2025 Telephone [facility] [address] [place] [address] Isamar Adams MD [address] [place] [address] Social History Tobacco Use Types Packs/Day Years [...] not sure if pt was evaluated at [facility] but states that pt's program wanted pt to be evaluated in the ED. Mom provided phone number of [phone]. T/C to this number forstatus check. No answer, v/m left to return call to [place] team nurses. * Telephone Encounter - Fransisca Holliday MA - 08/07/2025 9:52 AM EDT Provider wants a wellness check on patient over the phone tomorrow 08/08/2025. documented in this encounter Plan of Treatment Upcoming Encounters Date Type Department Care Team (Late st Contact Info) Description 09/25/2025 2:00 PM EST Office Visit [facility] [address] [place] [address] Alba So NP [address] [place] [address] documented as of this encounter Visit Diagnoses Not on filedocumented in this encounter Additional Health Concerns Assessment Noted Time PHQ-9 Depression Total Score: 18 024 11:56 AM EST documented as of this encounter Care Teams Ui Application Developer Relationship Specialty Start Date End Date Alba So NP [address] [place] [address] PCP - General Family Medicine 04/14/24 documented as of this encounter
--- OUTSIDE RECORDS SUMMARY | 2025-08-13 09:37 | XMS_ITS | Encounter Summary ---
Author Organization [facility] Address [address] [place] [phone] Phone Care Team Providers Care Composition Tile Layer Name Role Phone Pcp, Unknown Primary Care Provider Unavailabl e Encounter Details Date Type Department Care Team (Late st Contact Info) Description 09/16/2023 Procedure Pass [facility] Endoscopy Admitting Dept Virtual Department [address] [place] [address] Social History Tobacco Use Types Packs/Day Years [...] on filedocumented in this encounter Care Teams Composition Tile Layer Relationship Specialty Start Date End Date Pcp, Unknown PCP - General 12/06/19 documented as of this encounter Additional Source Comments The information contained in this document represents components of the legal health record. It is not the complete legal health record.[facility]
--- OUTSIDE RECORDS SUMMARY | 2025-08-13 09:37 | XMS_ITS | Clinical Summary ---
Author Organization [facility] Address [address] [place] [phone] Phone Care Team Providers Care Railroad Inspector Name Role Phone Pcp, Unknown Primary Care [...] EDT) SODIUM 140 133 - 146 mmol/L [facility] POTASSIUM 4.2 3.3 - 5.1 mmol/L [facility] CHLORIDE 109(H) 96 - 108 mmol/L [facility] CO2 19(L) 21 - 35 mmol/L [facility] BUN 10 6 - 19 mg/dL [facility] CREATININE 0.80 0.5 - 1.5 mg/dL [facility] GLUCOSE 67(L) 70 - 99 mg/dL [facility] ALBUMIN 3.7(L) 3.9 - 4.8 g/dL [facility] TOTAL PROTEIN 6.7 6.5 - 8.0 g/dL [facility] CALCIUM 8.8 8.4 - 10.3 mg/dL [facility] ALKALINE PHOSPHATASE 137(H) 39 - 117 U/L [facility] TOTAL BILIRUBIN 1.3(H) 0.0 - 1.2 mg/dL [facility] AST 13 0 - 37 U/L [facility] ALT 6 0 - 40 U/L [facility] GLOBULIN 3.0 1 - 4.8 g/dL [facility] EGFR 119 >59 mL/min/1.7 3m2 [facility] Comment:Estimated glomerular filtration rate calculated using the CKD-EPI refit equation. ANION GAP 16 10 - 20 mmol/L [facility] Blood 04/13/2023 6:42 AM EDT 04/13/2023 11:39 AM EDT us Martinez Rendon MD LAB BLOOD ORDERABLES Final Resul t [facility] [address] [place] [address] from Last 3 Months or Most Recently Relevant to Health Maintenance Insurance C3 ACO C3 ACO C3 ACO C3 ACO C3 ACO C3 ACO Care Teams Railroad Inspector Relationship Specialty Start Date End Date Pcp, Unknown PCP - General 12/06/19 Additional Source Comments The information contained in this document represents components of the legal health record. It is not the complete legal health record.[facility]
--- OUTSIDE RECORDS SUMMARY | 2025-08-13 09:37 | XMS_ITS | Clinical Summary ---
Author Organization [facility] Address [address] [place] [address], [place] [address] Care Team Providers Care Scientific Editor Name Role Phone Unavailable Primary Care Provider [...] age to complete this [place]
--- NOTE | 2025-08-13 09:43 | ED.GENADULT ---
HPI - General Adult General Chief complaint: Extremity Problem Stated complaint: L Leg Varicose Vein Popped Time Seen by Provider: 08/13/25 09:43 Source: patient Mode of arrival: ambulatory Limitations: no limitations History of Present Illness ED Provider: Estelita Barber PA-C HPI narrative: Patient is a 34 year old assigned male at with a history of IV drug use and varicose veins presenting to the emergency department today with left lower leg bleeding. Patient states that he was seen here on 08/01/2025 and had dissolvable sutures placed in his left lower leg varicose vein. Patient states that he noticed some oozing of the left lower leg last night. Patient states that he has been sober since 08/01/2025. Patient denies any other complaints at this time. Related Data Home Medications ?Medication ?Instructions ?Recorded ?Confirmed methadone 10 mg/mL oral 120 mg PO DAILY 09/13/24 06/07/25 concentrate (Methadone Intensol) albuterol sulfate 90 mcg/actuation 1 - 2 puff inhalation Q4-6H PRN 06/07/25 06/07/25 aerosol inhaler (Ventolin HFA) wheezing ferrous sulfate 325 mg (65 mg 325 mg PO Q OTHER DAY 06/07/25 06/07/25 iron) tablet furosemide 20 mg tablet 20 mg PO DAILY 06/07/25 06/07/25 gabapentin 100 mg capsule 200 mg PO TID 06/07/25 06/07/25 hydroxyzine pamoate 50 mg capsule 50 mg PO TID PRN Anxiety 06/07/25 06/07/25 sertraline 50 mg tablet 50 mg PO DAILY 06/07/25 06/07/25 trazodone 50 mg tablet 50 mg PO BEDTIME 06/07/25 06/07/25 Previous Rx's ?Medication ?Instructions ?Recorded apixaban 5 mg tablet (Eliquis) 5 mg PO BID 30 days #60 tabs 02/09/25 doxycycline monohydrate 100 mg 100 mg PO Q12H #8 caps 06/13/25 capsule prednisone 10 mg tablet See Taper PO DIRECTED #20 tabs 06/13/25 rifaximin 550 mg tablet (Xifaxan) 550 mg PO BID #180 tabs 06/13/25 albuterol sulfate 90 mcg/actuation 2 inh inhalation Q4-6H PRN 07/19/25 breath activated powder inhaler shortness of breath or wheezing #1 ea prednisone 10 mg tablet 10 mg PO BID #10 tabs 07/19/25 Allergies Allergy/AdvReac Type Severity Reaction Status Date / Time No Known Allergies (No Known Allergy Verified 08/13/25 09:22 Allergies*) Review of Systems Constitutional: Constitutional: Reports as per HPI Eyes: Eyes: Reports as per HPI ENT: Reports as per HPI Cardiovascular: Cardiovascular: Reports as per HPI Respiratory: Respiratory: Reports as per HPI Gastrointestinal: Gastrointestinal: Reports as per HPI Genitourinary: Genitourinary: Reports as per HPI Musculoskeletal: Musculoskeletal: Reports as per HPI Integumentary/Breasts: Skin/Breast: Reports as per HPI Neurologic: Reports as per HPI Psychiatric: Psychiatric: Reports as per HPI Endocrine: Endocrine: Reports as per HPI Hematologic/Lymphatic: Hematologic/Lymphatic: Reports as per HPI Allergic/Immunologic: Allergic/Immunologic: Reports as per HPI PMFSH Past Medical History Attestation statement: The following information was validated with the patient. Source: old records reviewed and nursing notes reviewed Medical History Hepatic cirrhosis Mitral valve vegetation Heart failure with mildly reduced ejection fraction Prosthetic valve malfunction Active intravenous drug use Pulmonary embolism without acute cor pulmonale Tricuspid valve vegetation Endocarditis Hypersensitivity pneumonitis Hemoptysis Rhabdomyolysis Anemia LUCERO (acute kidney injury) Polysubstance abuse Opioid use disorder Opioid use disorder, severe, dependence Substance abuse MSSA bacteremia Bacteremia Bacteremia Right heart failure Steatosis, liver Tricuspid valve stenosis Anasarca HCV (hepatitis C virus) Endocarditis Pulmonary embolism Surgical History S/P tricuspid valve replacement History of tricuspid valve replacement with bioprosthetic valve Social History Social History Household Members: Other Household Members Other:: jail Housing: Homeless Do you presently have visiting nurse or other home services: No Alcohol intake: former Patient Tobacco Use Status: Current everyday Tobacco user Tobacco use type: Cigarette Cigarette Packs Per Day: 0.5 Cigarettes Per Day: 10.0 Years Smoked: 10 Second Hand Smoke Exposure: No Substance Use Type: IV Drugs Advance Directives: Yes Advance Directives on File: Yes Advance Directives Date on File: 04/16/21 service: No Current occupational status: unemployed Physical Exam ED Vital Signs: Vital Signs - 24 hr 08/13/25 09:19 08/13/25 10:01 Temperature 97.4 F 97.4 F Pulse Rate 98 98 Respiratory Rate 20 20 Blood Pressure 140/75 H 140/75 H Pulse Oximetry 92 92 Oxygen Delivery Method Room Air Room Air BMI result Body Mass Index 29.6 Const General: cooperative, no acute distress, alert and awake Nutritional Appearance: well nourished Orientation/consciousness: patient oriented x3 HENMT Head: Yes normal to inspection and Yes atraumatic Ears: hearing grossly normal bilaterally and external ears normal General nose exam: Normal external nose present, no nasal discharge noted and no epistaxis Face and sinus: Yes normal facial exam, No abrasion and No laceration Mouth: Normal oral and palatal mucosa present, no drooling and no muffled voice Eyes General: appearance normal, both eyes and all related structures Periorbital: periorbital findings normal Eyelids: Yes eyelids normal Conjunctivae: conjunctivae normal Pupils: Equal, round and reactive pupils present EOM: EOMs intact bilaterally Neck Neck: Yes normal visual inspection and Yes full ROM Resp Effort & Inspection: normal respiratory effort and able to speak in complete sentences Neuro General: patient oriented x3, moves all extremities and CN's II-XI intact bilaterally Cranial nerves: Yes Equal, round and reactive pupils present Cognition (Neuro): normal cognition Extrem Other: General: Yes full ROM and Yes capillary refill normal Psych Appearance: grossly normal Mental Status: mental status grossly normal Affect: normal affect Attitude: cooperative Thought process: Normal thought process present Thought content: Normal thought content present Insight: Good insight present (Psych) Medical Decision Making Medical Decision Making MDM Narrative: Patient is a 34 year old assigned male at with a history of IV drug use and varicose veins presenting to the emergency department today with left lower leg bleeding. Patient's physical exam was as noted in the physical exam portion of this note. Patient's area of concern was no longer bleeding and there was no need for manual approximation of the wound edges. Patient's left lower leg was re-dressed with a non-stick + abd pad + fluff gauze + LYUDMILA wrap, without incident. Patient's LLE PMS was intact prior to and after bandage placement. I explained my physical exam findings to the patient. I answered all questions asked by the patient. I stressed the importance of the patient taking his medication as directed (either prescribed or as the over the counter packaging recommends). I stressed the importance of the patient following up with his primary care provider. I stressed the importance of the patient returning to the emergency department immediately if his symptoms were to worsen or if he were to develop any dizziness, shortness of breath, difficulty breathing, chest pain, blurry vision, loss of vision, nausea, vomiting, abdominal pain, fever, chills, back pain, or any other complaints. Patient verbalized agreement and understanding with this treatment plan and discharge. Differential Diagnosis Differential Diagnoses: The differential diagnosis associated with the presentation includes Wound check Varicose veins Laceration Admission/Observation Consideration of admission/observation: Escalation of care including admission/observation considered Patient would have been admitted to the hospital had his clinical presentation warranted hospital admission. Discharge Plan Discharge Clinical Impression: Varicose vein of leg Patient Disposition: Home, Self-Care Instructions: Venous Insufficiency (DC) Additional Instructions: Your left lower leg wound is healing well and no longer bleeding. Continue with your current treatment of compression dressings and elevation. Remember, your dressing should never be so tight that you zoey't feel or move your left lower extremity. IF you are prescribed home medications and/or you are taking over the counter medications at home - it is very important you continue to do so as prescribed / directed unless told otherwise. Follow up with your primary care provider. Return to the emergency department immediately if your symptoms worsen or if you develop any numbness, tingling, dizziness, shortness of breath, difficulty breathing, chest pain, blurry vision, loss of vision, nausea, vomiting, abdominal pain, fever, chills, back pain, or any other complaints. If you do not have a primary care provider - call any of the below numbers to establish and follow up with a primary care provider. [facility] Primary Care ([place]) [phone] [place] [address], [id number] [facility] Primary Care ([address] [facility]) [phone] [place] [address], [address] [facility], [address] [facility] Primary Care ([address] [facility] [place]) [phone] [place] [address], [address] [facility], [address] [facility] Primary Care ([place]) [phone] [place] [address] [facility], [address] [facility] Family Medicine [phone] [place] [address], [address] Please see the information below about our Patient Portal. If you are not yet enrolled in the [facility] Patient Portal, you will receive an enrollment email invitation following your visit to any [facility] care setting. You may also self-enroll in the Patient Portal by visiting our website: [email or web address] The following information is required to access the Patient Portal: - Your [facility] Medical Record Number - Your personal home email address (must match what is in your electronic medical record, Registration staff can assist with this) - Name - Date of Capabilities of the Patient Portal: - Message some providers - View upcoming appointments - Access your health summary, medical history, and visit history - View current conditions and allergies - View procedure and lab results - View your medications, including guidelines, side effects, and precautions - Complete pre-appointment questionnaires requested by your provider - Ready summary reports of your office visits and procedures To access the Patient Portal Mobile [employer], follow these directions: - Search [employer] in the [employer] Store or [employer] Store - Download the [employer]i - Search for [facility] - Enter your login/password Prescriptions: No Action methadone [Methadone Intensol] 10 mg/mL Concentrate 120 mg PO DAILY Eliquis 5 mg tablet 5 mg PO BID 30 Days Qty: 60 0RF trazodone 50 mg tablet 50 mg PO BEDTIME hydroxyzine pamoate 50 mg capsule 50 mg PO TID PRN (Reason: Anxiety) ferrous sulfate 325 mg (65 mg iron) tablet 325 mg PO Q OTHER DAY furosemide 20 mg tablet 20 mg PO DAILY gabapentin 100 mg capsule 200 mg PO TID albuterol sulfate [Ventolin HFA] 90 mcg/actuation HFA aerosol inhaler 1 - 2 puff inhalation Q4-6H PRN (Reason: wheezing) sertraline 50 mg tablet 50 mg PO DAILY doxycycline monohydrate 100 mg Capsule 100 mg PO Q12H Qty: 8 0RF Xifaxan 550 mg Tablet 550 mg PO BID Qty: 180 0RF prednisone 10 mg tablet See Taper PO DIRECTED Qty: 20 0RF Taper: Prednisone 40 mg daily for 3 Days and 0 Hour 30 mg daily for 3 Days and 0 Hour 20 mg daily for 3 Days and 0 Hour 10 mg daily for 3 Days and 0 Hour Rx Instructions: see taper instructions prednisone 10 mg tablet 10 mg PO BID Qty: 10 0RF albuterol sulfate 90 mcg/actuation aerosol powdr breath activated 2 inh inhalation Q4-6H PRN (Reason: shortness of breath or wheezing) Qty: 1 0RF Interventions: ED Discharge Assessment Last Done: 08/13/25 10:01 Discharge Date/Time: 08/13/25 10:02 Print Language: Bulgarian
[2025-08-13 10:01] VITALS: BP 140/75; PULSE 98; RESP 20; TEMP 36.3; O2SAT 92
== END 2025-08-13 10:02 | disposition home or self-care (01) ==
PROVIDERS: Emergency Provider Emergency Medicine Emergency Medical Services
DX: I83.892 Varicose veins of left lower extremity with other complications (principal); Z79.899 Other long term (current) drug therapy; Z86.79 Personal history of other diseases of the circulatory system; Z86.711 Personal history of pulmonary embolism; Z79.01 Long term (current) use of anticoagulants
CPT/HCPCS: 99282

== ENCOUNTER 2025-08-22 13:01 | Emergency (ER) | payer MEDICAID, SELFPAY ==
--- OUTSIDE RECORDS SUMMARY | 2025-08-18 07:40 | XMS_ITS | Encounter Summary ---
Author Organization [employer] Address [address] [place] [address] Care Team Providers Care Corporate Health Consultant Name Role Phone Alba So GENEVA Primary Care Provider [phone] Reason for Visit * Reason Comments Leg Pain Encounter Details Date Type Department Care Team ([facility] st Contact Info) Description 08/18/2025 8:40 AM EDT Office Visit [facility] [address] [place] [address] Mikie Fagan MD [address] [place] [address] Cellulitis of left lower extremity (Primary Dx) Social History Tobacco Use Types [...] Sign Reading Time Taken Comments Blood Pressure 119/82 08/18/2025 9:03 AM EDT Pulse 97 08/18/2025 9:03 AM EDT Temperature 36.7 C (98.1 F) 08/18/2025 9:03 AM EDT Respiratory Rate 20 08/18/2025 9:03 AM EDT Oxygen Saturation 97% 08/18/2025 9:03 AM EDT Inhaled Oxygen Concentration - - Weight 84.4 kg (186 lb) 08/18/2025 9:03 AM EDT Height - - Body Mass Index 29.13 08/16/2025 10:20 AM EDT documented in this encounter Progress Notes * Mikie Fagan MD - 08/18/2025 8:40 AM EDT Subjective History was provided by the patient. Norberto Marquez is a 34 y.o. male who presents to [facility] due to ongoing LLE cellulitis. Was evaluated 2 days ago due to LLE pain, swelling, and redness. Symptom onset was about 1 week ago. Denies F/C. Denies bleeding from the ulcerated area. Underlying polysubstance use disorder, heart failure, bioprosthetic tricuspid valve replacement, mitral valve vegetation, cirrhosis, untreated hepatitis-C infection, history of DVT and PE on Eliquis,and chronic venous insufficiency. Has an upcoming Vascular Surgery on 09/04/2025, he reports wearing compression stockings. He was prescribed Doxycycline, but states he was not able to get the Rx until yesterday. Took 2 doses so far. Objective Vitals: 08/18/25 0903 BP: 119/82 BP Location: Right arm Patient Position: Sitting BP Cuff Size: Adult Pulse: 97 Resp: 20 Temp: 98.1 ??F (36.7 ??C) TempSrc: Temporal SpO2: 97% Weight: 186 lb (84.4 kg) Physical Exam Constitutional: General: He is not in acute distress. Appearance: Normal appearance. He is not ill-appearing, toxic-appearing or diaphoretic. HENT: Right Ear: External ear normal. Left Ear: External ear normal. Mouth/Throat: Pharynx: Oropharynx is clear. Eyes: Conjunctiva/sclera: Conjunctivae normal. Pulmonary: Effort: Pulmonary effort is normal. Musculoskeletal: General: Swelling and tenderness present. No deformity. Normal range of motion. Cervical back: Neck supple. Left lower leg: Edema present. Skin: General: Skin is warm. Coloration: Skin is not jaundiced. Comments: LLE with 2+ edema with stasis dermatitis; pretibial erythema with two stage 2 ulcerations(~2cm each); numerous varicose veins; no purulent discharge; no bleeding Neurological: General: No focal deficit present. Mental Status: He is alert and oriented to person, place, and time. Gait: Gait normal. Psychiatric: Mood and Affect: Mood normal. Behavior: Behavior normal. Norberto was seen today for leg pain. Diagnoses and all orders for this visit: Cellulitis of left lower extremity (Primary) Patient returns to the clinic due to LLE cellulitis States he was unable to do the dressing change after a non-stick gauze was applied 2 days ago Wound appears to be stable without purulent discharge or bleeding Has taken 2 doses of Doxycycline Advised to complete the 10-day course Potential adverse effects of the medication reviewed Encouraged probiotic use He was referred to Wound Clinic (referral approved; phone number provided to call directly) LLE with 2+ edema with stasis dermatitis changes Using sterile saline, adherent dressing was removed without difficulty Petrolatum gauze was used to cover the ulcerated areas, then Kerlix dressing, then LYUDMILA wrap applied Advised to keep the leg elevated Dressing supply provided Also informed about Thursday WIC hours if he needs assistance with dressing change Indications for UC/ER use reviewed Advised to contact the clinic if persistent or worsening symptoms documented in this encounter Plan of Treatment Upcoming Encounters Date Type Department Care Team (Late st Contact Info) Description 09/25/2025 2:00 PM EST Office Visit [facility] [address] [place] [address] Alba So NP [address] [place] [address] documented as of this encounter Visit Diagnoses Diagnosis Cellulitis of left lower extremity- Primary documented in this encounter Additional Health Concerns Assessment Noted Time PHQ-9 Depression Total Score: 18 024 11:56 AM EST documented as of this encounter Care Teams Corporate Health Consultant Relationship Specialty Start Date End Date Alba So NP [address] [place] [address] PCP - General Family Medicine 04/14/24 documented as of this encounter
[2025-08-22] VITALS (7 sets, daily range): BP systolic 100–134; BP diastolic 70–90; PULSE 83–103; RESP 14–18; TEMP 36.7–37; O2SAT 93–96; BMI 27.6
--- NOTE | ~2025-08-22 | CT_ITS ---
EXAMINATION: CT CHEST ANGIOGRAPHY WITH IV CONTRAST INDICATION: hemoptysis COMPARISON: Radius chest CT PA gram most recent May 2025 and chest x-ray most recent July 19, 2025 TECHNIQUE: Helical CT scan of the chest was performed following administration of intravenous contrast (65 mL Omnipaque 350). The contrast bolus was timed to optimally opacify the pulmonary arteries. Thin sections were obtained through the pulmonary arteries. Coronal and sagittal reformatted images were generated. 3D/MIP reconstructed images are also obtained and reviewed. This CT exam was performed with one or more of the following dose reduction techniques: automated exposure control, adjustment of the mA and/or kV according to patient size, use of iterative reconstruction technique. DLP: 240 mGy-cm CHEST: THYROID: The thyroid gland is unremarkable. PULMONARY ARTERIES: There is good opacification of the pulmonary arteries. No evidence of large/central pulmonary embolism or acute pulmonary embolism is seen. There is wall thickening of the distal left lower lobe pulmonary artery. This is similar to previous exams for example axial image 63 series 7. Appearance is questionable for chronic changes from old pulmonary embolism. The main pulmonary artery is likely enlarged measuring 3 cm. There is no evidence of right heart strain. There is reflux of contrast into the liver. LUNGS: 6.5 mm left apical nodule axial image 15 series 7, stable. New increased groundglass attenuation and clustered small nodular opacities in the right lung apex questionable for airways disease/mild bronchopneumonia. There are other scattered areas of bronchial wall thickening. This mucous plugging in the right lower lobe. There is minimal subsegmental atelectasis at the lung bases. MEDIASTINUM: Small mediastinal lymph nodes, greatest in the subcarinal region measuring 8 mm in short axis. NIRALI: Small bilateral hilar lymph nodes, left greater than right. CARDIOVASCULATURE: The heart is enlarged. Left sided epicardial pacemaker unchanged. No pericardial effusion. Normal caliber thoracic aorta. DEGREE OF CORONARY CALCIFICATION: mild PLEURA: There is no pleural effusion. No pneumothorax. MAIN AIRWAYS: The mainstem bronchi and proximal branches are patent. AXILLA: Small bilateral axillary lymph nodes. Mild bilateral gynecomastia, right greater than left. UPPER ABDOMEN: Splenomegaly. Small amount of ascites. BONES AND SOFT TISSUES: Median sternotomy. CT/CT angio chest PE protocol IMPRESSION: No evidence of large/central or acute pulmonary emboli. Difficult to exclude changes from chronic pulmonary emboli in the proximal left lower lobe. This is similar to previous exams. Enlarged heart. No right heart strain. Reflux of contrast into the liver suggestive of evidence of right heart compromise. Slightly enlarged main pulmonary artery measuring 3 cm. Enlarged heart similar to prior exams. Left-sided epicardial pacemaker lead unchanged. Question mild airways disease/bronchopneumonia in the right upper lobe. Scattered areas of mild bronchial wall thickening and mucous plugging. Electronically signed by: Monica Richmond MD 08/22/2025 03:07 PM [facility]
--- NOTE | 2025-08-22 13:10 | ED_ITS ---
HPI - General Adult General Chief complaint: General Medical Stated complaint: coughing blood Time Seen by Provider: 08/22/25 13:10 Source: patient Mode of arrival: ambulatory Limitations: no limitations History of Present Illness ED Provider: Dr. Grant HPI narrative: 34-year-old male history of endocarditis status post valve replacement on blood thinner Eliquis presented hospital today for hemoptysis. Patient stated he has large blood when he cough. Denies any epistaxis. Patient stated that he was recently diagnosed with bronchitis last week. He stated that this started this morning all of a sudden. He is currently at a rehab program. He does use methadone for opioid dependency. It has not complain of any sore throat, the endorses subjective fever. Related Data Home Medications ?Medication ?Instructions ?Recorded ?Confirmed methadone 10 mg/mL oral 120 mg PO DAILY 09/13/24 concentrate (Methadone Intensol) albuterol sulfate 90 mcg/actuation 1 - 2 puff inhalati on Q4-6H PRN 06/07/25 06/07/25 aerosol inhaler (Ventolin HFA) wheezing ferrous sulfate 325 mg (65 mg 325 mg PO Q OTHER DAY 06/07/25 iron) tablet furosemide 20 mg tablet 20 mg PO DAILY 06/07/2505/20 gabapentin 100 mg capsule 200 mg PO TID 06/07/2506/07 hydroxyzine pamoate 50 mg capsule 50 mg PO TID PRN Anx iety 06/07/25 06/07/25 sertraline 50 mg tablet 50 mg PO DAILY 06/07/2505/20 trazodone 50 mg tablet 50 mg PO BEDTIME 06/07/25 Previous Rx's ?Medication ?Instructions ?Recorded apixaban 5 mg tablet (Eliquis) 5 mg PO BID 30 days #60 tabs 02/09/25 doxycycline monohydrate 100 mg 100 mg PO Q12H #8 caps 06/13/25 capsule prednisone 10 mg tablet See Taper PO DIRECTED #20 tabs 06/13/25 rifaximin 550 mg tablet (Xifaxan) 550 mg PO BID #180 t abs 06/13/25 albuterol sulfate 90 mcg/actuation 2 inh inhalation Q4 -6H PRN 07/19/25 breath activated powder inhaler shortness of breath or wheezing #1 ea prednisone 10 mg tablet 10 mg PO BID #10 tabs amoxicillin 875 mg-potassium 1 tab PO Q12H 7 days #14 tabs 08/22/25 clavulanate 125 mg tablet doxycycline hyclate 100 mg capsule 100 mg PO BID 7 day s #14 caps 08/22/25 Allergies Allergy/AdvReac Type Severity Reaction Status Date / Time No Known Allergies (No Known Allergy Verified 08/22/25 13:11 Allergies*) Review of Systems 2 Review of Systems: Pertinent review of systems as mentioned in HPI. All other system otherwise negative. [facility] Past Medical History [facility] Narrative: Medical history as mentioned in HPI Medical History Hepatic cirrhosis Mitral valve vegetation Heart failure with mildly reduced ejection fraction Prosthetic valve malfunction Active intravenous drug use Pulmonary embolism without acute cor pulmonale Tricuspid valve vegetation Endocarditis Hypersensitivity pneumonitis Hemoptysis Rhabdomyolysis Anemia LUCERO (acute kidney injury) Polysubstance abuse Opioid use disorder Opioid use disorder, severe, dependence Substance abuse MSSA bacteremia Bacteremia Bacteremia Right heart failure Steatosis, liver Tricuspid valve stenosis Anasarca HCV (hepatitis C virus) Endocarditis Pulmonary embolism Surgical History S/P tricuspid valve replacement History of tricuspid valve replacement with bioprosthetic valve Social History Social History Household Members: Other Household Members Other:: assisted Housing: Homeless Do you presently have visiting nurse or other home services: No Alcohol intake: former Patient Tobacco Use Status: Current everyday Tobacco user Tobacco use type: Cigarette Cigarette Packs Per Day: 0.5 Cigarettes Per Day: 10.0 Years Smoked: 10 Second Hand Smoke Exposure: No Substance Use Type: IV Drugs Advance Directives: Yes Advance Directives on File: Yes Advance Directives Date on File: 04/16/21 service: No Current occupational status: unemployed Physical Exam ED Exam Exam: General: Pleasant, no distress, interacting appropriately Head: Normacephalic, atraumatic ENT: oral mucosa moist, neck supple, no tracheal deviation, erythema in the back of the oropharynx Cardiovascular: regular rate, regular rhythm, no murmurs, rubbing, gallops Respiratory: CTAB, no wheeze, rales, rhonchi Neurological: Awake and alert, no facial droop noted Skin: Warm and dry Psychiatric: Appropriate mood and thoughts Vital Signs: Vital Signs - 24 hr 08/22/25 13:09 08/22/25 13:09 08/22/25 13:55 Temperature 98.5 F 98.5 F 98.6 F Pulse Rate 95 95 90 Respiratory Rate 16 16 14 Blood Pressure 127/78 123/74 109/74 Pulse Oximetry 93 93 96 Oxygen Delivery Method Room Air Room Air 08/22/25 14:11 08/22/25 15:22 08/22/25 16:17 Temperature 98.1 F Pulse Rate 96 90 83 Respiratory Rate 16 18 Blood Pressure 100/70 107/79 Pulse Oximetry Oxygen Delivery Method Room Air BMI result Body Mass Index 27.6 Medications Administered Discontinued Medications Generic Name Dose Route Start Last Admin Trade Name Freq PRN Reason Stop Dose Admin Amoxicillin/Clavulanate Potassium 875 mg 08/22/25 15:19 08/22/25 16:16 Amoxicillin/Potassium Clav 875 Mg Tablet PO 08/22/25 15:20 875 mg ONCE ONE Administration Doxycycline Monohydrate 100 mg 08/22/25 15:19 08/22/25 16:16 Doxycycline Monohydrate 100 Mg Capsule PO 08/22/25 15:20 100 mg ONCE ONE Administration Sodium Chloride 1,000 mls @ 999 mls/hr 08/22/25 14:15 08/22/25 16:00 Ns IV 08/22/25 15:15 Infused .Q1H1M CRISTINA Infusion Iohexol 100 ml 08/22/25 14:24 08/22/25 14:24 Iohexol 350 Mg/Ml 100 Ml Infus..Btl IV 08/22/25 14:25 65 ml ONCE ONE Administration Tranexamic Acid 1,000 mg 08/22/25 15:00 08/22/25 15:21 Tranexamic Acid 1,000 Mg/10 Ml Vial INHALE 08/22/25 15:09 1,000 mg ONCE ONE Administration Medical Decision Making Medical Decision Making [facility] Narrative: This is a 34-year-old male history of endocarditis presented hospital today for evaluation of hemoptysis. Patient is on blood thinner for heart valve replacement. I given patient's risk factor and be on blood thinner was signs of active hemoptysis this morning. We will obtain a CTA of the chest. We will plan to give nebulized TXA for the patient basic lab work will be obtained as well. Patient is hemodynamically stable not hypoxic on exam. Does not appear to be actively having hemoptysis. CTA imaging does show some signs of pulmonary nodules. The saw has signs of enlarged pulmonary artery, right upper lobe lung shows bronchial pneumonia. Patient was given on my and doxycycline to cover for possible pneumonia. Referral to pulmonology will be provided to the patient at this time giving her CT imaging findings. Encouraged him to follow up. Patient will be discharged back to his drug rehab program. No further hemoptysis during his stay in the ER. Differential Diagnosis Differential Diagnoses: The differential diagnosis associated with the presentation includes Hemoptysis, pulmonary embolism, bronchitis, pneumonia Lab Data MDM Lab Attestation statement: I reviewed the patient's lab results. 08/22/25 13:42 08/22/25 13:42 Labs: Lab Results 08/22/25 08/22/25 Range/Units 13:42 13:43 WBC 10.5 (4.8-10.8) X10*3/uL RBC 5.28 (4.60-5.80) X10*6/uL Hgb 13.1 L (14.0-18.0) g/dl Hct 42.2 (42.0-52.0) % MCV 79.9 L (80.0-98.0) fL MCH 24.8 L (27.0-33.0) pg MCHC 31.0 (31.0-36.0) g/dl RDW 22.8 H (11.0-16.0) % Plt Count 202 D (160-400) X10*3/uL MPV 9.2 L (9.4-12.4) fL Immature Gran % (Auto) Cancelled Neut % (Auto) Cancelled Lymph % (Auto) Cancelled [place] % (Auto) Cancelled Eos % (Auto) Cancelled Baso % (Auto) Cancelled Lymph # (Auto) Cancelled [place] # (Auto) Cancelled Eos # (Auto) Cancelled Baso # (Auto) Cancelled Abs Immat Gran (auto) Cancelled Absolute Neuts (auto) Cancelled Absolute Nucleated RBC 0.000 (0.0-0.012) X10*3/uL Nucleated RBC % (auto) 0.0 (0.0-0.2) /100WBC Neutrophils % (Manual) 73 (45-73) % Band Neutrophils % 5 (3-5) % Lymphocytes % (Manual) 11 L (20-40) % Atypical Lymphs % (Man) 3 (0-6) % Monocytes % (Manual) 4 (2-11) % Eosinophils % (Manual) 2 (0-4) % Metamyelocytes % 2 % Abs Neuts (Manual) 8.2 (2.0-8.3) X10*3/uL Lymphocytes # (Manual) 1.2 (1.2-4.9) X10*3/uL Atyp Lymphs # (Manual) 0.3 x10*3/uL Monocytes # (Manual) 0.4 (0.1-1.2) X10*3/uL Eosinophils # (Manual) 0.2 (0.0-0.4) X10*3/uL Metamyelocytes # 0.2 X10*3/uL Platelet Estimate NORMAL (NORMAL) Large Platelets PRESENT Plt Morphology Comment NOTED RBC Morphology NOTED Ovalocytes 1+ (5-14) /OIF Sodium 140 (135-145) mmol/L Potassium 4.5 (3.3-5.1) mmol/L Chloride 107 (96-108) mmol/L Carbon Dioxide 25 (22-29) mmol/L Anion Gap 13 (12-20) BUN 29 H (9-16) mg/dL Creatinine 0.96 (0.5-1.4) mg/dL Estim Creat Clear Calc 114.9 Estimated GFR > 60 Random Glucose 136 H (60-115) mg/dL Lactic Acid 1.5 (0.5-2.0) mmol/L Calcium 9.4 (8.4-10.2) mg/dL Total Bilirubin 0.7 (0.0-1.0) mg/dL AST 42 H (5-37) U/L ALT 60 H (0-40) U/L Alkaline Phosphatase 212 H (39-117) U/L Total Protein 7.8 (6.5-8.0) g/dL Albumin 4.1 (3.5-5.0) g/dL COVID-19 (QUYNH) Negative (Negative) COVID-19 Clin Com See Note Influenza Type A (BRITTA) Negative (Negative) Influenza Type B (BRITTA) Negative (Negative) Influenza A & B Note See Note Independent Interpretation I performed an independent interpretation of an: CT Scan Radiology Impression Discussion of test interpretation with radiology: I have reviewed the radiologist's reading. Prescription Management I considered prescription management with: Antibiotic Discharge Plan Discharge Clinical Impression: Pneumonia Qualifiers: Pneumonia type: due to unspecified organism Laterality: right Lung location: u pper lobe of lung Qualified Code(s): J18.9 - Pneumonia, unspecified organism Patient Disposition: Home, Self-Care Instructions: Community Acquired Pneumonia (ED) Additional Instructions: Follow up with the pulmnology clinic. Prescriptions: New amoxicillin-pot clavulanate 875-125 mg tablet 1 tab PO Q12H 7 Days Qty: 14 0RF doxycycline hyclate 100 mg capsule 100 mg PO BID 7 Days Qty: 14 0RF No Action methadone [Methadone Intensol] 10 mg/mL Concentrate 120 mg PO DAILY Eliquis 5 mg tablet 5 mg PO BID 30 Days Qty: 60 0RF trazodone 50 mg tablet 50 mg PO BEDTIME hydroxyzine pamoate 50 mg capsule 50 mg PO TID PRN (Reason: Anxiety) ferrous sulfate 325 mg (65 mg iron) tablet 325 mg PO Q OTHER DAY furosemide 20 mg tablet 20 mg PO DAILY gabapentin 100 mg capsule 200 mg PO TID albuterol sulfate [Ventolin HFA] 90 mcg/actuation HFA aerosol inhaler 1 - 2 puff inhalation Q4-6H PRN (Reason: wheezing) sertraline 50 mg tablet 50 mg PO DAILY doxycycline monohydrate 100 mg Capsule 100 mg PO Q12H Qty: 8 0RF Xifaxan 550 mg Tablet 550 mg PO BID Qty: 180 0RF prednisone 10 mg tablet See Taper PO DIRECTED Qty: 20 0RF Taper: Prednisone 40 mg daily for 3 Days and 0 Hour 30 mg daily for 3 Days and 0 Hour 20 mg daily for 3 Days and 0 Hour 10 mg daily for 3 Days and 0 Hour Rx Instructions: see taper instructions prednisone 10 mg tablet 10 mg PO BID Qty: 10 0RF albuterol sulfate 90 mcg/actuation aerosol powdr breath activated 2 inh inhalation Q4-6H PRN (Reason: shortness of breath or wheezing) Qty: 1 0RF Referrals: [facility] Pulmonology Services [Provider Group, Pulmonology] Print Language: Kinyarwanda
--- NOTE | 2025-08-22 13:20 | PC.NURSE ---
Pt roomed and placed on 1/2 monitor- kept falling asleep during Provider interview.Pt denies substance use. VSS. No hemoptysis at this time.
[2025-08-22 13:59] LABS: Hematocrit 42.2 % (42.0-52.0); Hemoglobin 13.1 g/dl (14.0-18.0); Mean Corpuscular HGB Conc 31.0 g/dl (31.0-36.0); Mean Corpuscular Hemoglobin 24.8 pg (27.0-33.0); Mean Corpuscular Volume 79.9 fL (80.0-98.0); NRBC Abs Auto 0.000 X10*3/uL (0.0-0.012); NRBC Pct Auto 0.0 /100WBC (0.0-0.2); Platelet Count 202 X10*3/uL (160-400); Red Blood Count 5.28 X10*6/uL (4.60-5.80); White Blood Count 10.5 X10*3/uL (4.8-10.8)
--- NOTE | 2025-08-22 14:10 | PC.NURSE ---
Provider made aware of low BP- fluids ordered
[2025-08-22 14:11] LABS: COVID-19 Test Negative (Negative); IDNOW Serial# 58CA691E
[2025-08-22 14:12] LABS: IDNOW Serial# 55D5AD1C; Influenza B2 Negative (Negative)
[2025-08-22 14:12] LABS: Alanine Aminotransferase 60 U/L (0-40); Albumin Level 4.1 g/dL (3.5-5.0); Alkaline Phosphatase 212 U/L (39-117); Anion Gap 13 (12-20); Aspartate Amino Transferase 42 U/L (5-37); Blood Urea Nitrogen 29 mg/dL (9-16); Calcium 9.4 mg/dL (8.4-10.2); Carbon Dioxide 25 mmol/L (22-29); Chloride 107 mmol/L (96-108); Creatinine Clr Calc Pharmacy 114.9; Estimated Glomerular Filt Rate > 60; Potassium 4.5 mmol/L (3.3-5.1); Sodium 140 mmol/L (135-145); Total Protein 7.8 g/dL (6.5-8.0)
[2025-08-22] MEDS: iohexoL 350 MG/ML 100 ML INFUS..BTL IV (14:24)
[2025-08-22 14:38] LABS: Atypical Lymph Absolute Manual 0.3 x10*3/uL; Atypical Lymphs Percent Manual 3 % (0-6); Band Neutrophils Percent 5 % (3-5); Eosinophils Absolute Manual 0.2 X10*3/uL (0.0-0.4); Eosinophils Percent Manual 2 % (0-4); Lymphocytes Absolute Manual 1.2 X10*3/uL (1.2-4.9); Lymphocytes Percent Manual 11 % (20-40); Metamyelocytes Absolute 0.2 X10*3/uL; Metamyelocytes Percent 2 %; Monocytes Absolute Manual 0.4 X10*3/uL (0.1-1.2); Monocytes Percent Manual 4 % (2-11); Neutrophils Absolute Manual 8.2 X10*3/uL (2.0-8.3); Neutrophils Percent Manual 73 % (45-73); RBC Morphology NOTED
[2025-08-22 14:39] LABS: Large Platelet PRESENT; Ovalocytes 1+ (5-14) /OIF
[2025-08-22] MEDS: Tranexamic Acid 1,000 MG/10 ML VIAL 1000 MG INHALE (15:21)
--- NOTE | 2025-08-22 16:21 | PC.NURSE ---
Pt resting quietly. unlabored resp. eating and drinking, ambulaory, no hemoptysis. states that had happened only when he was using a while ago. NAD.
--- OUTSIDE RECORDS SUMMARY | 2025-08-22 16:51 | XMS_ITS | Encounter Summary ---
Author Organization [employer] Address [address] [place] [address] Care Team Providers Care Green Building Energy Engineer Name Role Phone Alba So GENEVA Primary Care Provider [phone] Encounter Details Date Type Department Care Team (Late st Contact Info) Description 04/26/2024 Orders Only [facility] MEDICINE [address] [place] [address] Varun Givens, PharmD [address] [place] [address] Social History Tobacco Use Types Packs/Day Years [...] with others, in a hotel, in a nursing home, living outside on the street, on [...] 09/25/2025 2:00 PM EST Office Visit [facility] MEDICINE [address] [place] [address] Alba So NP [address] [place] [address] documented as of this encounter Visit Diagnoses Not on filedocumented in this encounter Additional Health Concerns Assessment Noted Time PHQ-9 Depression Total Score: 0 06/03/20 23 10:05 AM EDT documented as of this encounter Care Teams Green Building Energy Engineer Relationship Specialty Start Date End Date Alba So NP [address] [place] [address] PCP - General Family Medicine 04/14/24 documented as of this encounter
--- OUTSIDE RECORDS SUMMARY | 2025-08-22 16:51 | XMS_ITS | Encounter Summary ---
Author Organization [facility] Address [address] [place] [address] Phone Care Team Providers Care Hired Worker Name Role Phone Pcp, Unknown Primary Care Provider Unavailabl e Encounter Details Date Type Department Care Team (Late st Contact Info) Description 10/28/2023 Procedure Pass [facility] Endoscopy Admitting Dept Virtual Department [address] [place] [address] Social History Tobacco Use Types Packs/Day Years [...] on filedocumented in this encounter Care Teams Hired Worker Relationship Specialty Start Date End Date Pcp, Unknown PCP - General 12/06/19 documented as of this encounter Additional Source Comments The information contained in this document represents components of the legal health record. It is not the complete legal health record.[facility]
--- OUTSIDE RECORDS SUMMARY | 2025-08-22 16:51 | XMS_ITS | Encounter Summary ---
Author Organization [facility] Address [address] [place] [address] Phone Care Team Providers Care District Plant Engineer Name Role Phone Pcp, Unknown Primary Care Provider Unavailabl e Encounter Details Date Type Department Care Team (Late st Contact Info) Description 04/08/2023 Transcribe Orders [facility] Specimen Processing [address] [place] [address] Martinez Rendon MD [address] [facility] [place] [address] [email or web address] Congestive heart failure, unspecified HF [...] 7:23 PM EDT Aisha Zelaya, RN * [place] Suicide Severity Rating Scale (Screener/Recent Self-Report) Question [...] EDT) SODIUM 140 133 - 146 mmol/L [facility] POTASSIUM 3.8 3.3 - 5.1 mmol/L [facility] CHLORIDE 108 96 - 108 mmol/L [facility] CO2 18(L) 21 - 35 mmol/L [facility] BUN 9 6 - 19 mg/dL [facility] CREATININE 0.70 0.5 - 1.5 mg/dL [facility] GLUCOSE 78 70 - 99 mg/dL [facility] ALBUMIN 3.7(L) 3.9 - 4.8 g/dL [facility] TOTAL PROTEIN 6.9 6.5 - 8.0 g/dL [facility] CALCIUM 8.9 8.4 - 10.3 mg/dL [facility] ALKALINE PHOSPHATASE 144(H) 39 - 117 U/L [facility] TOTAL BILIRUBIN 1.5(H) 0.0 - 1.2 mg/dL [facility] AST 13 0 - 37 U/L [facility] ALT 7 0 - 40 U/L [facility] GLOBULIN 3.2 1 - 4.8 g/dL [facility] EGFR >120 >59 mL/min/1.7 3m2 [facility] Comment:Estimated glomerular filtration rate calculated using the CKD-EPI refit equation. ANION GAP 18 10 - 20 mmol/L [facility] 04/08/2023 5:55 AM EDT 04/08/2023 8:22 AM EDT us Martinez Rendon MD LAB BLOOD BKR ORDERABLES Final R esult [address] [address] documented in this encounter Visit Diagnoses Diagnosis Congestive heart failure, unspecified HF chronicity, unspecified heart failure type- Primary documented in this encounter Care Teams District Plant Engineer Relationship Specialty Start Date End Date Pcp, Unknown PCP - General 12/06/19 documented as of this encounter Additional Source Comments The information contained in this document represents components of the legal health record. It is not the complete legal health record.[facility]
--- OUTSIDE RECORDS SUMMARY | 2025-08-22 16:51 | XMS_ITS | Encounter Summary ---
Author Organization [employer] Address [address] [place] [address] Care Team Providers Care Medical Operations Supervisor Name Role Phone Nirali Lott Primary Care Provider [phone] Alba So NP Primary Care Provider [phone] Encounter Details Date Type Department Care Team (Late st Contact Info) Description 10/27/[address] [facility] MED [facility] PEDS [address] [place] [address] Nirali Lott FNP [address] [place] [address] Infective endocarditis of tricuspid valve (Primary Dx) [...] 09/25/2025 2:00 PM EST Office Visit [facility] MEDICINE [address] [place], [place] [phone] Alba So NP [address] [place] [address] documented as of this encounter Procedures Procedure Name Priority Date/Time Associated Diagnosis Comments CT LIVER 3 PHASE Routine 10/27/2023 4:35 PM EST documented in this encounter Results * CT liver 3 phase (10/27/2023 4:35 PM EST) Anatomical Region Laterality Modality Liver Computed Tomogra phy 10/27/2023 4:35 PM EST Narrative 11/02/2023 11:06 AM EST [address] [address] [address] Scan Report Signed Patient: Norberto Marquez MR#: [id number] : 1990 Acct:[id number] Age/Sex: 33 / M ADM Date: 10/27/23 Loc: HO.CT Attending Dr: Randa Chisholm MD Ordering Physician: Randa Chisholm MD Date of Service: 10/27/23 Procedure(s): CT liver 3 phase Accession Number(s): [id number] cc: Randa Chisholm MD; [facility] EXAMINATION: CT ABDOMEN without and WITH [...] in OV> 11/02/23 1101 DD/ 1635 TD/TT: Bicycle Inspector: SS Procedure Note Donotuseinterpreter, Image - 11/03/[address] [place] [address] [address] Scan Report Signed Patient: Zully Marquez#: [id number] : 1990Acct:[id number] Age/Sex: 33 / MADM Date: 10/27/23 Loc: HO.CT Attending Dr: Randa Chisholm MD Ordering Physician: Randa Chisholm MD Date of Service: 10/27/23 Procedure(s): CT liver 3 phase Accession Number(s): [id number] cc: Randa Chisholm MD; [facility] EXAMINATION: CT ABDOMEN without and WITH [...] in OV> 11/02/23 1101 DD/ 1635 TD/TT: Bicycle Inspector: ELIEZER [facility] External Provider IMG CT PROCEDURES Final Result documented in this encounter Visit Diagnoses Diagnosis Infective endocarditis of tricuspid valve- Primary documented in this encounter Additional Health Concerns Assessment Noted Time PHQ-9 Depression Total Score: 0 06/03/20 10:05 AM EDT documented as of this encounter Care Teams Medical Operations Supervisor Relationship Specialty Start Date End Date Nirali Lott FNP [address] [place] [address] PCP - General Family Medicine 07/09/23 04/13/24 Alba So NP [address] [place] [address] PCP - General Family Medicine 04/14/24 documented as of this encounter
--- OUTSIDE RECORDS SUMMARY | 2025-08-22 16:51 | XMS_ITS | Encounter Summary ---
Author Organization [employer] Address [address] [facility] [address] [place] [address] Care Team Providers Care Insulation Power Unit Tender Name Role Phone Nirali LottP Primary Care Provider [phone] Alba So NP Primary Care Provider [phone] Reason for Visit * Reason Onset Date Comments Referral 10/16/2023 Encounter Details Date Type Department Care Team ([facility] st Contact Info) Description 10/16/2023 Telephone [facility] MEDICINE [address] [place] [address] Nirali Lott FNP [address] [place] [address] Referral Social History Tobacco Use Types Packs/Day [...] - 10/16/2023 10:22 AM EST Tc from [facility] never received referral. documented in this encounter Plan of Treatment Upcoming Encounters Date Type Department Care Team (Late st Contact Info) Description 09/25/2025 2:00 PM EST Office Visit [facility] MEDICINE [address] [place] [address] Alba oS NP [address] [place] [address] documented as of this encounter Visit Diagnoses Not on filedocumented in this encounter Additional Health Concerns Assessment Noted Time PHQ-9 Depression Total Score: 0 06/03/20 23 10:05 AM EDT documented as of this encounter Care Teams Insulation Power Unit Tender Relationship Specialty Start Date End Date Nirali Lott FNP [address] [place] [address] PCP - General Family Medicine 07/09/23 04/13/24 Alba So NP [address] [place] [address] PCP - General Family Medicine 04/14/24 documented as of this encounter
--- OUTSIDE RECORDS SUMMARY | 2025-08-22 16:51 | XMS_ITS | Encounter Summary ---
Author Organization [employer] Address [address] [facility] [address] [place] [address] Care Team Providers Care Measurement Coordinator Name Role Phone Nirali LottP Primary Care Provider [phone] Alba So NP Primary Care Provider [phone] Reason for Visit * Reason Onset Date Comments Hospital Follow-up 04/05/2024 Encounter Details Date Type Department Care Team ([facility] st Contact Info) Description 04/05/2024 Telephone [facility] MEDICINE [address] [place] [address] Nirali Lott FNP [address] [place] [address] Hospital Follow-up Social History Tobacco Use Types [...] from pt requesting a HDF appt. Hospital: [facility] Date of admission: 03/30 Discharge date: 04/01 Diagnosed: Chest Pain documented in this encounter Plan of Treatment Upcoming Encounters Date Type Department Care Team (Late st Contact Info) Description 09/25/2025 2:00 PM EST Office Visit [facility] MEDICINE [address] [place] [address] Alba So NP [address] [place] [address] documented as of this encounter Visit Diagnoses Not on filedocumented in this encounter Additional Health Concerns Assessment Noted Time PHQ-9 Depression Total Score: 0 06/03/20 10:05 AM EDT documented as of this encounter Care Teams Measurement Coordinator Relationship Specialty Start Date End Date Nirali Lott FNP [address] [place] [address] PCP - General Family Medicine 07/09/23 04/13/24 Alba So NP [address] [place] [address] PCP - General Family Medicine 04/14/24 documented as of this encounter
--- OUTSIDE RECORDS SUMMARY | 2025-08-22 16:51 | XMS_ITS | Encounter Summary ---
Author Organization [employer] Address [address] [facility] 7t [place] [address] Care Team Providers Care Display Mechanic Name Role Phone Nirali Lott Primary Care Provider [phone] Alba So NP Primary Care Provider [phone] Reason for Referral * Consultation (Routine) - Closed Specialty Diagnoses / Procedures Referred By Merle t Referred To Contact Hand Surgery Diagnoses Pain in finger of left hand Nirali Lott FNP [address] [place] [address] Phone: tel: fax: [facility] [address] [place] [address] Phone: tel: Referral ID Status Reason Start Date Expiration Date V isits Requested Visits Authorized [id number] Closed Specialty Services Required 12/23/2023 12/22/2024 6 6 Encounter Details Date Type Department Care Team (Late st Contact Info) Description 12/23/2023 Orders Only [facility] [address] [place] [address] Nirali Lott FNP [address] [place] [address] Pain in finger of left hand (Primary [...] 09/25/2025 2:00 PM EST Office Visit [facility] [address] [place] [address] Alba So NP [address] [place] [address] Scheduled Referrals Name Type Priority Associated Diagnoses [...] as of this encounter Care Teams Display Mechanic Relationship Specialty Start Date End Date Nirali Lott FNP [address] [place] [address] PCP - General Family Medicine 07/09/23 04/13/24 Alba So NP [address] [place] [address] PCP - General Family Medicine 04/14/24 documented as of this encounter
--- OUTSIDE RECORDS SUMMARY | 2025-08-22 16:51 | XMS_ITS | Encounter Summary ---
Author Organization [employer] Address [address] [facility] 7t [place] [address] Care Team Providers Care Family Practice Nurse Practitioner Name Role Phone Nirali LottP Primary Care Provider [phone] Alba So NP Primary Care Provider [phone] Reason for Visit * Reason Onset Date Comments PT1 10/02/2023 Encounter Details Date Type Department Care Team ([facility] st Contact Info) Description 10/02/2023 Telephone [facility] [address] [place] [address] Nirali Lott FNP [address] [place], [place] [phone] PT1 Social History Tobacco Use Types Packs/Day [...] 10/02/2023 11:00 AM EST PT-1 Request Number [id number] is Pending * Telephone Encounter - Christine Mak - 10/02/2023 10:32 AM EST Tc alanna Cruz with [facility] requesting PT1 transportation. Date: 10/20/2022 Time: 10:15 Visits: 12 a year Address: [address] [place] [address] [facility] Chair: n/a Product Safety Technical Assistant Needed: n/a documented in this encounter Plan of Treatment Upcoming Encounters Date Type Department Care Team (Late st Contact Info) Description 09/25/2025 2:00 PM EST Office Visit [facility] [address] [place] [address] Alba So NP [address] [place] [address] documented as of this encounter Visit Diagnoses Not on filedocumented in this encounter Additional Health Concerns Assessment Noted Time PHQ-9 Depression Total Score: 0 06/03/20 23 10:05 AM EDT documented as of this encounter Care Teams Family Practice Nurse Practitioner Relationship Specialty Start Date End Date Nirali Lott FNP [address] [place] [address] PCP - General Family Medicine 07/09/23 04/13/24 Alba So NP [address] [place] [address] PCP - General Family Medicine 04/14/24 documented as of this encounter
--- OUTSIDE RECORDS SUMMARY | 2025-08-22 16:51 | XMS_ITS | Encounter Summary ---
Author Organization [facility] Address [address] [facility] [address] [place] [phone] Phone Care Team Providers Care Hydration Plant Operator Name Role Phone Pcp, Unknown Primary Care Provider Unavailabl e Encounter Details Date Type Department Care Team (Late st Contact Info) Description 09/16/2023 Procedure Pass [facility]oscopy Admitting Dept Virtual Department [address] [place] [address] Social History Tobacco Use Types Packs/Day Years [...] on filedocumented in this encounter Care Teams Hydration Plant Operator Relationship Specialty Start Date End Date Pcp, Unknown PCP - General 12/06/19 documented as of this encounter Additional Source Comments The information contained in this document represents components of the legal health record. It is not the complete legal health record.[facility]
--- OUTSIDE RECORDS SUMMARY | 2025-08-22 16:52 | XMS_ITS | Encounter Summary ---
Author Organization [employer] Address [address] [facility] 7t [place] [address] Care Team Providers Care Loading Rack Supervisor Name Role Phone Mack Jin WHITTEN Primary Care Provider Unavail able Nirali Lott Primary Care Provider [phone] Alba So NP Primary Care Provider [phone] Encounter Details Date Type Department Care Team ([facility] Contact Info) Description 06/08/2023 Orders Only [facility] [address] [place], [place] [phone] Nirali Lott FNP [address] [place] [address] Chronic hepatitis C without hepatic coma (CMS/HCC) [...] Upcoming Encounters Date Type Department Care Team ([facility] Contact Info) Description 09/25/2025 2:00 PM EST Office Visit [facility] [address] [place] [address] Alba So NP [address] [place] [address] documented as of this encounter Visit Diagnoses Diagnosis Chronic hepatitis C without hepatic coma (HCC)- Primary documented in this encounter Additional Health Concerns Assessment Noted Time PHQ-9 Depression Total Score: 0 06/03/20 10:05 AM EDT documented as of this encounter Care Teams Loading Rack Supervisor Relationship Specialty Start Date End Date Jin Mack AGNP PCP - General Family Medicine 04/24/23 07/08/23 Nirali Lott FNP [address] [place] [address] PCP - General Family Medicine 07/09/23 04/13/24 Alba So NP [address] [place] [address] PCP - General Family Medicine 04/14/24 documented as of this encounter
--- OUTSIDE RECORDS SUMMARY | 2025-08-22 16:52 | XMS_ITS | Encounter Summary ---
Author Organization [employer] Address [address] [facility] 7[address] [place] [address] Care Team Providers Care Housemaid Name Role Phone Alba So GENEVA Primary Care Provider [phone] Encounter Details Date Type Department Care Team (Latest Contact Info) Description 08/18/2025 Travel Social History Tobacco Use Types Packs/Day [...] Description 09/25/2025 2:00 PM EST Office Visit [facility] [address] [place] [address] Alba So NP [address] [place] [address] documented as of this encounter Visit Diagnoses Not on filedocumented in this encounter Additional Health Concerns Assessment Noted Time PHQ-9 Depression Total Score: 18 024 11:56 AM EST documented as of this encounter Care Teams Housemaid Relationship Specialty Start Date End Date Alba So NP [address] [place] [address] PCP - General Family Medicine 04/14/24 documented as of this encounter
--- OUTSIDE RECORDS SUMMARY | 2025-08-22 16:52 | XMS_ITS | Encounter Summary ---
Author Organization [employer] Address [address] [facility] 7t [place] [address] Care Team Providers Care Hangar Attendant Name Role Phone Alba So ROTARY KILN OPERATOR Primary Care Provider [phone] Reason for Visit * Reason Onset Date Comments Hep C 08/17/2025 Encounter Details Date Type Department Care Team ([facility] st Contact Info) Description 08/17/2025 Telephone [facility] [address] [place] [address] Humaira Bruno, RN [address] [place] [address] Hep C Social History Tobacco Use Types Packs/Day Years [...] Telephone Encounter - Humaira Bruno RN - 08/17/2025 2:12 PM EDT RN called pt [phone] to offer Hep C treatment, no answer, LVM for pt to return call. documented in this encounter Plan of Treatment Upcoming Encounters Date Type Department Care Team (Late st Contact Info) Description 09/25/2025 2:00 PM EST Office Visit [facility] [address] [place] [address] Alba So NP [address] [place] [address] documented as of this encounter Visit Diagnoses Not on filedocumented in this encounter Additional Health Concerns Assessment Noted Time PHQ-9 Depression Total Score: 18 024 11:56 AM EST documented as of this encounter Care Teams Hangar Attendant Relationship Specialty Start Date End Date Alba So NP [address] [place] [address] PCP - General Family Medicine 04/14/24 documented as of this encounter
--- OUTSIDE RECORDS SUMMARY | 2025-08-22 16:52 | XMS_ITS | Encounter Summary ---
Author Organization [employer] Address [address] [facility] [address]t [place] [address] Care Team Providers Care Embroidery Cutter Name Role Phone Nirali LottP Primary Care Provider [phone] Alba So NP Primary Care Provider [phone] Reason for Visit * Reason Onset Date Comments PT1 08/05/2023 Encounter Details Date Type Department Care Team ([facility] st Contact Info) Description 08/05/[address] [facility] [address] [place] [address] Nirali Lott FNP [address] [place], [place] [phone] PT1 Social History Tobacco Use Types Packs/Day [...] 08/05/2023 1:12 PM EDT PT-1 Request Number [id number] is Pending * Telephone Encounter - Sage Telles - 08/05/2023 12:36 PM EDT Tc alanna Manley with [facility] Partner requesting a PT1: Name of facility: [facility] Specialty: Consult possible liver transplant Location: [address] [place] [address] Date: 08/12/2023 Time: 11:00 am fax: n/a wheelchair: no Print Operator: no All future appt's documented in this encounter Plan of Treatment Upcoming Encounters Date Type Department Care Team (Late st Contact Info) Description 09/25/2025 2:00 PM EST Office Visit [facility] [address] [place] [address] Alba So NP [address] [place] [address] documented as of this encounter Visit Diagnoses Not on filedocumented in this encounter Additional Health Concerns Assessment Noted Time PHQ-9 Depression Total Score: 0 06/03/20 10:05 AM EDT documented as of this encounter Care Teams Embroidery Cutter Relationship Specialty Start Date End Date Nirali Lott FNP [address] [place] [address] PCP - General Family Medicine 07/09/23 04/13/24 Alba So NP [address] [place] [address] PCP - General Family Medicine 04/14/24 documented as of this encounter
--- OUTSIDE RECORDS SUMMARY | 2025-08-22 16:52 | XMS_ITS | Clinical Summary ---
Author Organization [facility] Address [address] [place] [address], [place] [address] Care Team Providers Care Manager Cardiology Name Role Phone Unavailable Primary Care Provider [...] age to complete this topic [place]
--- OUTSIDE RECORDS SUMMARY | 2025-08-22 16:52 | XMS_ITS | Clinical Summary ---
Author Organization [facility] Address [address] [place] [phone] Phone Care Team Providers Care Pet Stylist Name Role Phone Pcp, Unknown Primary Care [...] Date/Time Associated Diagnosis Comments COMPREHENSIVE METABOLIC PANEL (CMP) Routine 04/13/2023 6:42 AM EDT Congestive heart failure, unspecified HF chronicity, unspecified heart failure type from Last 3 Months or Most Recently Relevant to Health Maintenance Results * (ABNORMAL) Comprehensive metabolic panel (04/13/2023 6:42 AM EDT) SODIUM 140 133 - 146 mmol/L [facility] POTASSIUM 4.2 3.3 - 5.1 mmol/L [facility] CHLORIDE 109(H) 96 - 108 mmol/L [facility] CO2 19(L) 21 - 35 mmol/L [facility] BUN 10 6 - 19 mg/dL [facility] CREATININE 0.80 0.5 - 1.5 mg/dL [facility] GLUCOSE 67(L) 70 - 99 mg/dL [facility] ALBUMIN 3.7(L) 3.9 - 4.8 g/dL [facility] TOTAL PROTEIN 6.7 6.5 - 8.0 g/dL [facility] CALCIUM 8.8 8.4 - 10.3 mg/dL [facility] ALKALINE PHOSPHATASE 137(H) 39 - 117 U/L [facility] TOTAL BILIRUBIN 1.3(H) 0.0 - 1.2 mg/dL [facility] AST 13 0 - 37 U/L [facility] ALT 6 0 - 40 U/L [facility] GLOBULIN 3.0 1 - 4.8 g/dL [facility] EGFR 119 >59 mL/min/1.7 3m2 [facility] Comment:Estimated glomerular filtration rate calculated using the CKD-EPI refit equation. ANION GAP 16 10 - 20 mmol/L [facility] Blood 04/13/2023 6:42 AM EDT 04/13/2023 11:39 AM EDT us Martinez Rendon MD LAB BLOOD BKR ORDERABLES Final R esult [facility] [address] [place] [address] from Last 3 Months or Most Recently Relevant to Health Maintenance Insurance C3 ACO C3 ACO C3 ACO C3 ACO C3 ACO C3 ACO Care Teams Pet Stylist Relationship Specialty Start Date End Date Pcp, Unknown PCP - General 12/06/19 Additional Source Comments The information contained in this document represents components of the legal health record. It is not the complete legal health record.[facility]
--- OUTSIDE RECORDS SUMMARY | 2025-08-22 16:52 | XMS_ITS | Encounter Summary ---
Author Organization [employer] Address [address] [facility] [address] [place] [address] Care Team Providers Care Rose Grader Name Role Phone Alba So NP Primary Care Provider [phone] Encounter Details Date Type Department Care Team (Late st Contact Info) Description 12/21/2024 Orders Only [facility] [address] [place] [address] Alba So NP [address] [place] [address] Social History Tobacco Use Types Packs/Day Years [...] Description 09/25/2025 2:00 PM EST Office Visit [facility] [address] [place] [address] Alba So NP [address] [place] [address] documented as of this encounter Visit Diagnoses Not on filedocumented in this encounter Additional Health Concerns Assessment Noted Time PHQ-9 Depression Total Score: 18 024 11:56 AM EST documented as of this encounter Care Teams Rose Grader Relationship Specialty Start Date End Date Alba So NP [address] [place] [address] PCP - General Family Medicine 04/14/24 documented as of this encounter
--- OUTSIDE RECORDS SUMMARY | 2025-08-22 16:52 | XMS_ITS | Encounter Summary ---
Author Organization [employer] Address [address] [facility] 7[address] [place] [address] Care Team Providers Care Packing And Final Assembly Supervisor Name Role Phone Alba So GENEVA Primary Care Provider [phone] Encounter Details Date Type Department Care Team ([facility] st Contact Info) Description 08/22/2025 Orders Only GENERIC EXTERNAL DATA DEPARTMENT Provider, [...] Description 09/25/2025 2:00 PM EST Office Visit [facility] MEDICINE [address], [place] [phone] Alba So NP [address] [place], [place] [phone] documented as of this encounter Procedures Procedure Name Priority Date/Time Associated Diagnosis Comments CTA CHEST PE PROTOCAL Routine 08/22/2025 2:21 PM EST INFLUENZA A B2 ID NOW (CHEUNG) Routine 08/22/2025 1:43 PM EST COVID-19 ID NOW (CHEUNG) Routine 08/22/2025 1:43 PM EST COMPLETE BLOOD COUNT MAN DIF Routine 08/22/2025 1:42 PM EST CBC WITH AUTO DIFFERENTIAL Routine 08/22/2025 1:42 PM EST LACTIC ACID Routine 08/22/2025 1:42 PM EST COMPREHENSIVE METABOLIC PANEL Routine 08/22/2025 1:42 PM EST documented in this encounter Results * CTA Chest PE Protocal (08/22/2025 2:21 PM EST) Anatomical Region Laterality Modality Body, Chest Computed Tomogra phy 08/22/2025 2:21 PM EST Narrative 08/22/2025 3:10 PM EST [address] [address] [address] Scan Report Signed Patient: Norberto Marquez MR#: [id number] : 1990 Acct:[id number] Age/Sex: 34 / M ADM Date: 08/22/25 Loc: .ED Attending Dr: Ordering Physician: Norma Grant DO Date of Service: 08/22/25 Procedure(s): CT angio chest PE protocol Accession Number(s): [id number] cc: Norma Grant DO; [facility] Report Number: [id number]: Total DLP = 240.00 mGy-cm Reason for Exam: hemoptysis EXAMINATION: CT CHEST ANGIOGRAPHY WITH IV CONTRAST INDICATION: hemoptysis COMPARISON: Radius chest CT PA gram most recent May 2025 and chest x-ray most recent July 19, 2025 TECHNIQUE: Helical CT scan of the chest was performed following administration of intravenous contrast (65 mL Omnipaque 350). The contrast bolus was timed to optimally opacify the pulmonary arteries. Thin sections were obtained through the pulmonary arteries. Coronal and sagittal reformatted images were generated. 3D/MIP reconstructed images are also obtained and reviewed. This CT exam was performed with one or more of the following dose reduction techniques: automated exposure control, adjustment of the mA and/or kV according to patient size, use of iterative reconstruction technique. DLP: 240 mGy-cm CHEST: THYROID: The thyroid gland is unremarkable. PULMONARY ARTERIES: There is good opacification of the pulmonary arteries. No evidence of large/central pulmonary embolism or acute pulmonary embolism is seen. There is wall thickening of the distal left lower lobe pulmonary artery. This is similar to previous exams for example axial image 63 series 7. Appearance is questionable for chronic changes from old pulmonary embolism. The main pulmonary artery is likely enlarged measuring 3 cm. There is no evidence of right heart strain. There is reflux of contrast into the liver. LUNGS: 6.5 mm left apical nodule axial image 15 series 7, stable. New increased groundglass attenuation and clustered small nodular opacities in the right lung apex questionable for airways disease/mild bronchopneumonia. There are other scattered areas of bronchial wall thickening. This mucous plugging in the right lower lobe. There is minimal subsegmental atelectasis at the lung bases. MEDIASTINUM: Small mediastinal lymph nodes, greatest in the subcarinal region measuring 8 mm in short axis. NIRALI: Small bilateral hilar lymph nodes, left greater than right. CARDIOVASCULATURE: The heart is enlarged. Left sided epicardial pacemaker unchanged. No pericardial effusion. Normal caliber thoracic aorta. DEGREE OF CORONARY CALCIFICATION: mild PLEURA: There is no pleural effusion. No pneumothorax. MAIN AIRWAYS: The mainstem bronchi and proximal branches are patent. AXILLA: Small bilateral axillary lymph nodes. Mild bilateral gynecomastia, right greater than left. UPPER ABDOMEN: Splenomegaly. Small amount of ascites. BONES AND SOFT TISSUES: Median sternotomy. CT/CT angio chest PE protocol IMPRESSION: No evidence of large/central or acute pulmonary emboli. Difficult to exclude changes from chronic pulmonary emboli in the proximal left lower lobe. This is similar to previous exams. Enlarged heart. No right heart strain. Reflux of contrast into the liver suggestive of evidence of right heart compromise. Slightly enlarged main pulmonary artery measuring 3 cm. Enlarged heart similar to prior exams. Left-sided epicardial pacemaker lead unchanged. Question mild airways disease/bronchopneumonia in the right upper lobe. Scattered areas of mild bronchial wall thickening and mucous plugging. Electronically signed by: Monica Richmond MD 08/22/2025 03:07 PM [facility] [place] Dictated By: Monica Richmond MD Signed By: <Electronically signed by Monica Richmond MD in OV> 08/22/25 1507 DD/ 1421 TD/TT: 08/22/25 1439 Customer Supply Coordinator: MICHAEL Procedure Note Donotuseinterpreter, Image - 08/22/[address] [address] [address] Scan Report Signed Patient: Zully Marquez#: [id number] : 1990Acct:[id number] Age/Sex: 34 / MADM Date: 08/22/25 Loc: HO.ED Attending Dr: Ordering Physician: Norma Grant DO Date of Service: 08/22/25 Procedure(s): CT angio chest PE protocol Accession Number(s): [id number] cc: RudyNorma Dontae MADDEN; [facility] Report Number: [id number]: Total DLP = 240.00 mGy-cm Reason for Exam: hemoptysis EXAMINATION: CT CHEST ANGIOGRAPHY WITH IV CONTRAST INDICATION: hemoptysis COMPARISON: Radius chest CT PA gram most recent May 2025 and chest x-ray most recent July 19, 2025 TECHNIQUE: Helical CT scan of the chest was performed following administration of intravenous contrast (65 mL Omnipaque 350). The contrast bolus was timed to optimally opacify the pulmonary arteries. Thin sections were obtained through the pulmonary arteries. Coronal and sagittal reformatted images were generated. 3D/MIP reconstructed images are also obtained and reviewed. This CT exam was performed with one or more of the following dose reduction techniques: automated exposure control, adjustment of the mA and/or kV according to patient size, use of iterative reconstruction technique. DLP: 240 mGy-cm CHEST: THYROID: The thyroid gland is unremarkable. PULMONARY ARTERIES: There is good opacification of the pulmonary arteries. No evidence of large/central pulmonary embolism or acute pulmonary embolism is seen. There is wall thickening of the distal left lower lobe pulmonary artery. This is similar to previous exams for example axial image 63 series 7. Appearance is questionable for chronic changes from old pulmonary embolism. The main pulmonary artery is likely enlarged measuring 3 cm. There is no evidence of right heart strain. There is reflux of contrast into the liver. LUNGS: 6.5 mm left apical nodule axial image 15 series 7, stable. New increased groundglass attenuation and clustered small nodular opacities in the right lung apex questionable for airways disease/mild bronchopneumonia. There are other scattered areas of bronchial wall thickening. This mucous plugging in the right lower lobe. There is minimal subsegmental atelectasis at the lung bases. MEDIASTINUM: Small mediastinal lymph nodes, greatest in the subcarinal region measuring 8 mm in short axis. NIRALI: Small bilateral hilar lymph nodes, left greater than right. CARDIOVASCULATURE: The heart is enlarged. Left sided epicardial pacemaker unchanged. No pericardial effusion. Normal caliber thoracic aorta. DEGREE OF CORONARY CALCIFICATION: mild PLEURA: There is no pleural effusion. No pneumothorax. MAIN AIRWAYS: The mainstem bronchi and proximal branches are patent. AXILLA: Small bilateral axillary lymph nodes. Mild bilateral gynecomastia, right greater than left. UPPER ABDOMEN: Splenomegaly. Small amount of ascites. BONES AND SOFT TISSUES: Median sternotomy. CT/CT angio chest PE protocol IMPRESSION: No evidence of large/central or acute pulmonary emboli. Difficult to exclude changes from chronic pulmonary emboli in the proximal left lower lobe. This is similar to previous exams. Enlarged heart. No right heart strain. Reflux of contrast into the liver suggestive of evidence of right heart compromise. Slightly enlarged main pulmonary artery measuring 3 cm. Enlarged heart similar to prior exams. Left-sided epicardial pacemaker lead unchanged. Question mild airways disease/bronchopneumonia in the right upper lobe. Scattered areas of mild bronchial wall thickening and mucous plugging. Electronically signed by: Monica Richmond MD 08/22/2025 03:07 PM EST Dictated By: Monica Richmond MD Signed By: <Electronically signed by Monica Richmond MD in OV> 08/22/25 1507 DD/ 1421 TD/TT: 08/22/25 1439 Customer Supply Coordinator: MICHAEL [facility] External Provider IMG CT PROCEDURES Final Result * Influenza A B2 ID NOW (Cheung) (08/22/2025 1:43 PM EST) IDNOW SERIAL# [id number] [facility] Influenza A Negative Negative [facility] Influenza B2 Negative Negative [facility] Influenza A B2 Note See Note [facility] Comment:The Cheung ID NOW In [...] specimen and co- infection withRespiratory Syncytial Virus. 08/22/2025 1:43 PM EST 08/22/2025 1:54 PM EST us Generic External Data Provider LAB MICROBIOLOGY - GENERAL ORDERABLES Final Result [facility] [address] [place] [phone] * COVID-19 ID NOW (CHEUNG) (08/22/2025 1:43 PM EST) IDNOW SERIAL# [id number] [facility] COVID-19 TEST Negative Negative [facility] COVID-19 NOTE See Note [facility] Comment: Results are for the identification of SARS-CoV2 RNA. TheSARS-CoV2 RNA is generally detectable in respiratory samplesduring the acute phase of infection. Positive results areindicative of the presence of SARS-CoV-2 RNA; clinicalcorrelation with patient history and other diagnosticinformation is necessary to determine patient infectionstatus. Positive results do not rule out bacterial infectionor co- infection with other viruses.Testing facilities within the [facility] and [facility] are required to report all positive [...] on the Cheung ID NOW utilizing NAAT. 08/22/2025 1:43 PM EST 08/22/2025 1:54 PM EST us Generic External Data Provider LAB MOLECULAR [place] [facility] ORDERABLES Final Result Performing Organization Address City/[facility]/ZIP Co de Phone Number [facility] [address] [place] [phone] * Lactic Acid (08/22/2025 1:42 PM EST) Lactic Acid 1.5 0.5 - 2.0 mmol/L [facility] 08/22/2025 1:42 PM EST 08/22/2025 1:53 PM EST Generic External Data Provider LAB BLOOD ORDERAB LES Final Result Performing Organization Address [facility] Co de Phone Number [facility] [address] [place] [phone] * (ABNORMAL) Comprehensive Metabolic Panel (08/22/2025 1:42 PM EST) Pathologist [facility] Sodium 140 135 - 145 mmol/L [facility] Potassium 4.5 3.3 - 5.1 mmol/L [facility] Chloride 107 96 - 108 mmol/L [facility] Carbon Dioxide 25 22 - 29 mmol/L [facility] Anion Gap 13 12 - 20 [facility] Urea Nitrogen (BUN) 29(H) 9 - 16 mg/dL [facility] Creatinine, Serum 0.96 0.5 - 1.4 mg/dL [facility] Creatinine Clr Calc Pharmacy 114.9 [facility] Comment:eGFR (calculated fro m the MDRD study equation) and eCrCl(calculated from the Cockcroft-Gault equation) are based ondifferent parameters and may not yield comparable results.If eCrCl result is absurd, please check patient'sheight/weight. Estimated Glomerular Filt Rate >60 [facility] Comment:Chronic Kidney Disea se: Estimated GFR < 60 mL/min/1.63s7Mjuebs Kidney Disease: Estimated GFR < 15 mL/min/1.73m2 Glucose 136(H) 60 - 115 mg/dL [facility] Calcium 9.4 8.4 - 10.2 mg/dL [facility] Bilirubin, Total 0.7 0.0 - 1.0 mg/dL [facility] Aspartate Amino Transferase 42(H) 5 - 37 U/L [facility] Alanine Aminotransferase 60(H) 0 - 40 U/L [facility] Total Protein 7.8 6.5 - 8.0 g/dL [facility] Albumin Level 4.1 3.5 - 5.0 g/dL [facility] Alkaline Phosphatase 212(H) 39 - 117 U/L [facility] 08/22/2025 1:42 PM EST 08/22/2025 1:53 PM EST us Generic External Data Provider LAB BLOOD ORDERAB LES Final Result [facility] [address] [place] [phone] * (ABNORMAL) Complete Blood Count Manual Diff (08/22/2025 1:42 PM EST) White Blood Count 10.5 4.8 - 10.8 X10*3/uL [facility] Red Blood Count 5.28 4.60 - 5.80 X10*6/uL [facility] Hemoglobin 13.1(L) 14.0 - 18.0 g/dl [facility] Hematocrit 42.2 42.0 - 52.0 % [facility] Mean Corpuscular Volume 79.9(L) 80.0 - 98.0 fL [facility] Mean Corpuscular Hemoglobin 24.8(L) 27.0 - 33.0 pg [facility] Mean Corpuscular HGB Conc 31.0 31.0 - 36.0 g/dl [facility] Red Cell Distribution Width 22.8(H) 11.0 - 16.0 % [facility] Platelet Count 202 160 - 400 X10*3/uL [facility] Mean Platelet Volume 9.2(L) 9.4 - 12.4 fL [facility] NRBC Pct Auto 0.0 0.0 - 0.2 /100WBC [facility] NRBC Abs Auto 0.000 0.0 - 0.012 X10*3/uL [facility] Neutrophils % Manual 73 45 - 73 % [facility] Band Neutrophils Percent 5 3 - 5 % [facility] Lymphocytes Percent Manual 11(L) 20 - 40 % [facility] Atypical Lymphs Percent Manual 3 0 - 6 % [facility] Monocytes Percent Manual 4 2 - 11 % [facility] EOSINOPHILS % MANUAL 2 0 - 4 % [facility] Metamyelocytes % (Manual) 2 % [facility] NEUTROPHILS ABSOLUTE MANUAL 8.2 2.0 - 8.3 X10*3/uL [facility] LYMPHOCYTES ABSOLUTE MANUAL 1.2 1.2 - 4.9 X10*3/uL [facility] Atypical Lymph Absolute Manual 0.3 x10*3/uL [facility] MONOCYTES ABSOLUTE MANUAL 0.4 0.1 - 1.2 X10*3/uL [facility] EOSINOPHILS ABSOLUTE MANUAL 0.2 0.0 - 0.4 X10*3/uL [facility] Absolute Metamyelocytes 0.2 X10*3/uL [facility] Platelet Estimate [facility] Large Platelet [facility] Platelet Morphology Comment NOTED [facility] RBC Morphology NOTED [facility] Ovalocytes 1+ (5-14) /OIF [facility] 08/22/2025 1:42 PM EST 08/22/2025 1:53 PM EST us Generic External Data Provider LAB BLOOD ORDERAB LES Final Result [facility] [address] [place] [phone] * (ABNORMAL) CBC auto differential (08/22/2025 1:42 PM EST) White Blood Count 10.5 4.8 - 10.8 X10*3/uL [facility] Red Blood Count 5.28 4.60 - 5.80 X10*6/uL [facility] Hemoglobin 13.1(L) 14.0 - 18.0 g/dl [facility] Hematocrit 42.2 42.0 - 52.0 % [facility] Mean Corpuscular Volume 79.9(L) 80.0 - 98.0 fL [facility] Mean Corpuscular Hemoglobin 24.8(L) 27.0 - 33.0 pg [facility] Mean Corpuscular HGB Conc 31.0 31.0 - 36.0 g/dl [facility] Red Cell Distribution Width 22.8(H) 11.0 - 16.0 % [facility] Platelet Count 202 160 - 400 X10*3/uL [facility] Mean Platelet Volume 9.2(L) 9.4 - 12.4 fL [facility] Neutrophils Percent Auto 68.9 45 - 73 % [facility] Imm Gran Pct Auto 6.5(H) 0.0 - 0.4 % [facility] Lymphocytes Percent Auto 16.6(L) 20 - 40 % [facility] Monocytes Percent Auto 5.5 2 - 11 % [facility] Eosinophils Percent Auto 1.6 0 - 4 % [facility] Basophils Percent Auto 0.9 0 - 2 % [facility] NRBC Pct Auto 0.0 0.0 - 0.2 /100WBC [facility] Neutrophils Absolute Auto 7.3 2.0 - 8.3 x10*3/uL [facility] Imm Gran Abs Auto 0.68(H) 0.00 - 0.03 X10*3/uL [facility] Lymphocytes Absolute Auto 1.8 1.2 - 4.9 X10*3/uL [facility] Monocytes Absolute Auto 0.6 0.1 - 1.2 X10*3/uL [facility] Eosinophils Absolute Auto 0.2 0.0 - 0.4 X10*3/uL [facility] Basophils Absolute Auto 0.1 0.0 - 0.2 X10*3/uL [facility] NRBC Abs Auto 0.000 0.0 - 0.012 X10*3/uL [facility] 08/22/2025 1:42 PM EST 08/22/2025 1:53 PM EST us Generic External Data Provider LAB BLOOD ORDERAB LES Edited Result - Final [facility] [address] [place] [phone] documented in this encounter Visit Diagnoses Not on filedocumented in this encounter Additional Health Concerns Assessment Noted Time PHQ-9 Depression Total Score: 18 024 11:56 AM EST documented as of this encounter Care Teams Packing And Final Assembly Supervisor Relationship Specialty Start Date End Date Alba So NP [address] [place] [address] PCP - General Family Medicine 04/14/24 documented as of this encounter
--- OUTSIDE RECORDS SUMMARY | 2025-08-22 16:52 | XMS_ITS | Encounter Summary ---
Author Organization [employer] Address [address] [facility] [address] [place] [address] Care Team Providers Care Broadcast Technician Name Role Phone Alba So NP Primary Care Provider [phone] Encounter Details Date Type Department Care Team (Late st Contact Info) Description 07/07/2025 Results Follow-Up [facility] [address] [place] [address] Alba So NP [address] [place] [address] CBC auto differential, Complete Blood Count Manual [...] Description 09/25/2025 2:00 PM EST Office Visit [facility] [address] [place] [address] Alba So NP [address] [place] [address] documented as of this encounter Visit Diagnoses Not on filedocumented in this encounter Additional Health Concerns Assessment Noted Time PHQ-9 Depression Total Score: 18 024 11:56 AM EST documented as of this encounter Care Teams Broadcast Technician Relationship Specialty Start Date End Date Alba So NP [address] [place] [address] PCP - General Family Medicine 04/14/24 documented as of this encounter
--- OUTSIDE RECORDS SUMMARY | 2025-08-22 16:52 | XMS_ITS | Encounter Summary ---
Author Organization [employer] Address [address] [facility] [address] [place] [address] Care Team Providers Care Rural Sociologist Name Role Phone GrahamFabriziomarty Harris [employer] SUPERVISOR Primary Care Provider Madisyn Jin [place] Primary Care Provider Unavail Nirali Diaz [employer] TRA[employer]IC [employer] SUPERVISOR Primary Care Provider [phone] Alba So NP Primary Care Provider [phone] Encounter Details Date Type Department Care Team (Late st Contact Info) Description 01/05/2023 Orders Only [facility] [address] [place] [address] Nohemi Greene FNP Social History Tobacco Use [...] empyema, recurrent bacteremia and endocarditis,was admitted to [facility] on 07/16/22 for evaluation [...] mom and was in a program in [place] and wasdischarged October 23, now lives at [...] EST Office Visit [facility] [address] [place] [address] Alba So NP [address] [place], [place] [phone] documented as of this encounter Procedures Procedure [...] EDT 04/13/2023 3:00 PM EDT Comment:Blood Narrative [facility] - 04/18/2023 5:00 PM EDT Blood Culture (Second) No growth after 5 days. Specimen Source: Blood [facility] Exter nal Provider LAB MICROBIOLOGY - GENERAL ORDERABLES Final Result Performing Organization Address [facility]/ZIP Co de Phone Number [facility] [address] [place] [address] [phone] * Blood Culture (First) (04/13/2023 2:20 PM EDT) Blood 04/13/2023 2:20 PM EDT 04/13/2023 3:00 PM EDT Comment:Blood Narrative [facility] - 04/18/2023 5:00 PM EDT Blood Culture (First) No growth after 5 days. Specimen Source: Blood [facility] Exter nal Provider LAB MICROBIOLOGY - GENERAL ORDERABLES Final Result Performing Organization Address [facility]/ZIP Co de Phone Number [facility] [address] [place] [phone] * (ABNORMAL) Urinalysis, Complete, with Reflex to Culture (03/16/2023 6:50 PM EDT) Color Urine Dark Yellow [facility] Appearance Urine Clear [facility] PH 6.5 5.0 - 9.0 [facility] Glucose Urine UA Negative Negative mg/dL [facility] Urine Blood Small (1+)(A) Negative [facility] Specific Gillespie - Urine 1.015 1.005 - 1.025 [facility] Urine Protein 100 (2+)(A) Neg-Trace mg/dL [facility] Urine Ketones Negative Negative mg/dL [facility] Nitrite Urine Positive(A) Negative [facility] Leukocyte Esterase Urine Small (1+)(A) Negative [facility] RBC Urine >20(A) 0 - 2 /HPF [facility] Urine WBC 6-10(A) 0 - 5 /HPF [facility] Urine Squamous Epithelial Cell 0-2 0 - 2 /HPF [facility] Urine Bacteria None Seen None Seen [facility] Hyaline Casts, Urine 0-2 0 - 2 /LPF [facility] 03/16/2023 6:50 PM EDT 03/16/2023 7:08 PM EDT Narrative [facility] - 03/16/2023 7:57 PM EDT Urine, Clean Catch us [facility] External Provider LAB URI NE ORDERABLES Final Result [facility] [address] [place] [phone] * (ABNORMAL) CBC auto differential (03/16/2023 5:18 PM EDT) White Blood Count 11.0(H) 4.8 - 10.8 X10*3/uL [facility] Red Blood Count 4.07(L) 4.60 - 5.80 X10*6/uL [facility] Hemoglobin 9.7(L) 14.0 - 18.0 g/dl [facility] Hematocrit 30.7(L) 42.0 - 52.0 % [facility] Mean Corpuscular Volume 75.4(L) 80.0 - 98.0 fL [facility] Mean Corpuscular Hemoglobin 23.8(L) 27.0 - 33.0 pg [facility] Mean Corpuscular HGB Conc 31.6 31.0 - 36.0 g/dl [facility] Red Cell Distribution Width 31.5(H) 11.0 - 16.0 % [facility] Platelet Count 597(H) 160 - 400 X10*3/uL [facility] Mean Platelet Volume 9.8 9.4 - 12.4 fL [facility] Neutrophils Percent Auto 60.7 45 - 73 % [facility] Imm Gran Pct Auto 2.0(H) 0.0 - 0.4 % [facility] Lymphocytes Percent Auto 24.7 20 - 40 % [facility] Monocytes Percent Auto 10.5 2 - 11 % [facility] Eosinophils Percent Auto 1.1 0 - 4 % [facility] Basophils Percent Auto 1.0 0 - 2 % [facility] NRBC Pct Auto 0.0 0.0 - 0.2 /100WBC [facility] Neutrophils Absolute Auto 6.7 2.0 - 8.3 x10*3/uL [facility] Imm Gran Abs Auto 0.22(H) 0.00 - 0.03 X10*3/uL [facility] Lymphocytes Absolute Auto 2.7 1.2 - 4.9 X10*3/uL [facility] Monocytes Absolute Auto 1.2 0.1 - 1.2 X10*3/uL [facility] Eosinophils Absolute Auto 0.1 0.0 - 0.4 X10*3/uL [facility] Basophils Absolute Auto 0.1 0.0 - 0.2 X10*3/uL [facility] NRBC Abs Auto 0.000 0.0 - 0.012 X10*3/uL [facility] 03/16/2023 5:18 PM EDT 03/16/2023 5:24 PM EDT us [facility] External Provider LAB BLO OD ORDERABLES Final Result [facility] [address] [place] [phone] * High Sensitivity Troponin I (03/16/2023 5:18 PM EDT) TROPONIN I HIGH SENSITIVITY 11.4 <3.5 - 35.0 ng/L [facility] Comment:The Coley high sens itivity Troponin-I results should beused in conjunction with other diagnostic information suchas ECG, clinical observations and information, and patientsymptoms to aid in the diagnosis of DE. 03/16/2023 5:18 PM EDT 03/16/2023 5:24 PM EDT [facility] External Provider LAB BLO OD ORDERABLES Final Result Performing Organization Address [facility] Co de Phone Number [facility] [address] [place] [phone] * (ABNORMAL) B Type Natriuretic Peptide (BNP) (03/16/2023 5:18 PM EDT) B Type Natriuretic Peptide 378(H) <100 pg/mL [facility] Comment:For those patients w ho are being treated with Natrecor(nesiritide, recombinant BNP), BNP testing should beperformed at least two hours post treatment in order toensure that only endogenous levels of BNP are detected. 03/16/2023 5:18 PM EDT 03/16/2023 5:24 PM EDT [facility] External Provider LAB BLO OD ORDERABLES Final Result Performing Organization Address [facility] Co de Phone Number [facility] [address] [place] [phone] * (ABNORMAL) Lipase (03/16/2023 5:18 PM EDT) Lipase 168(H) 8 - 78 U/L [facility] 03/16/2023 5:18 PM EDT 03/16/2023 5:24 PM EDT [facility] External Provider LAB BLO OD ORDERABLES Final Result Performing Organization Address [facility] Co de Phone Number [facility] [address] [place] [phone] * (ABNORMAL) Basic Metabolic Panel (03/16/2023 5:18 PM EDT) Sodium 139 135 - 145 mmol/L [facility] Potassium 3.0(L) 3.3 - 5.1 mmol/L [facility] Chloride 106 96 - 108 mmol/L [facility] Carbon Dioxide 20(L) 22 - 29 mmol/L [facility] Anion Gap 16 12 - 20 [facility] Urea Nitrogen (BUN) 8(L) 9 - 16 mg/dL [facility] Creatinine, Serum 0.74 0.5 - 1.4 mg/dL [facility] Creatinine Clr Calc Pharmacy 131.5 [facility] Comment:eGFR (calculated fro m the MDRD study equation) and eCrCl(calculated from the Cockcroft-Gault equation) are based ondifferent parameters and may not yield comparable results.If eCrCl result is absurd, please check patient'sheight/weight. Estimated Glomerular Filt Rate >60 [facility] Comment:NOTE: For -Am erican individuals, multiply the result by 1.210.Chronic Kidney Disease: Estimated GFR < 60 mL/min/[id number] Kidney Disease: Estimated GFR < 15 mL/min/1.73m2 Glucose 84 60 - 115 mg/dL [facility] Calcium 9.4 8.4 - 10.2 mg/dL [facility] 03/16/2023 5:18 PM EDT 03/16/2023 5:24 PM EDT us [facility] External Provider LAB BLO OD ORDERABLES Final Result [facility] [address] [place] [phone] * (ABNORMAL) Hepatic Function Panel (03/16/2023 5:18 PM EDT) Bilirubin, Total 5.9(H) 0.0 - 1.0 mg/dL [facility] Bilirubin, Direct 3.5(H) 0.0 - 0.5 mg/dL [facility] Aspartate Amino Transferase 19 5 - 37 U/L [facility] Alanine Aminotransferase 13 0 - 40 U/L [facility] Total Protein 7.7 6.5 - 8.0 g/dL [facility] Albumin Level 3.9 3.5 - 5.0 g/dL [facility] Alkaline Phosphatase 154(H) 39 - 117 U/L [facility] 03/16/2023 5:18 PM EDT 03/16/2023 5:24 PM EDT [facility] External Provider LAB BLO OD ORDERABLES Final Result Performing Organization Address [facility] Co de Phone Number [facility] [address] [place] [phone] * Lactic Acid (03/16/2023 5:18 PM EDT) Lactic Acid 1.7 0.5 - 2.0 mmol/L [facility] 03/16/2023 5:18 PM EDT 03/16/2023 5:24 PM EDT [facility] External Provider LAB BLO OD ORDERABLES Final Result Performing Organization Address [facility] Co de Phone Number [facility] [address] [place] [phone] documented in this encounter Visit Diagnoses Not on filedocumented in this encounter Care Teams Rural Sociologist Relationship Specialty Start Date End Date Megan Stevenson FNP PCP - General Family Medicine 03/27/22 04/23/23 Jin Mack AGNP PCP - General Family Medicine 04/24/23 07/08/23 Nirali Lott FNP [address] [place] [phone] PCP - General Family Medicine 07/09/23 04/13/24 Alba So NP [address] [place] [phone] PCP - General Family Medicine 04/14/24 documented as of this encounter
--- OUTSIDE RECORDS SUMMARY | 2025-08-22 16:52 | XMS_ITS | Clinical Summary ---
Author Organization [employer] Address [address] [facility] [address] [place] [address] Care Team Providers [facility] Shift Lead Name Role Phone Alba So GENEVA Primary Care Provider [phone] Allergies No known active allergies Medications * [...] and at bedtime for anxiety. 06/02/20 Active doxycycline (Vibra-Tabs) 100 MG tablet Take 1 tablet (100 mg) by mouth 2 times daily for 10 days. Take with a full glass of water and do not lie down for at least 30 minutes after. 20 tablet 08/16/20 Active allopurinol (Zyloprim) 100 MG tablet Take 1 tablet (100 mg) by mouth Once per day. 30 tablet 11 08/16/20 Active predniSONE (Deltasone) 20 MG tablet Take 2 tablets (40 mg) by mouth Once per day for 5 days. 10 tablet 08/07/20 Discontinued(Re order (will not trigger notification to Pharmacy)) azithromycin (Zithromax) 250 MG tablet Take 2 tabs day and then 1 tab daily 6 tablet 08/07/20 Discontinued(Th erapy completed) neomycin-bacit racin-polymyxi n (Neosporin) 5-400-5000 ointment Apply topically Once per day for 10 days. 14.2 g 08/11/20 25 predniSONE (Deltasone) 20 MG tablet Take 1 tablet (20 mg) by mouth Once per day for 5 days. 5 tablet 08/13/20 25 Active Problems Problem Noted Date Diagnosed Date [...] treatment, ambulance called and expect called to [facility]. 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 Assessment & Plan (11/21/2024 7:05 PM EST): Pt with complicated hx and difficulty with out patient compliance Meds reconciled with [facility] discharge documents and refilled Pt prefers to seek care at [facility] today for ongoing cardiac issues History of endocarditis 10/17/2024 Hyperbilirubinemia 10/17/2024 Hypertension [...] POCT rapid strep A manually resulted Sepsis ([facility]) 10/17/2024 Overview (10/17/2024): He has completed six [...] he gets home to be transported to [facility] for stitching as he did not want to be transported directly from the clinic Hx of pulmonary embolus 04/18/2023 Overview (04/18/2023): Treating w/ Xarelto 20 mg daily while at [facility] 03/16/23-04/15/23 (anticipated discharge date) Anemia, chronic disease 10/09/2022 Symptomatic anemia 10/09/2022 Overview (10/09/2022): Acute anemia related to tooth extractions on 10/01/22 while still on xarelto for anticoagulation. Taken to [place] ED, bleeding gums, not able to stop with pressure Hemoglobin 3 Received 1 prbc transfusion Transferred to [facility] for admission on 10/02/22. Received another transfusion Discharged 10/06/22 Ascites 07/21/2022 Bacteremia 07/21/2022 Overview (04/18/2023): Recurrent bacteremia and endocarditis found 03/04/23. Admitted. Left AMA on 03/14/23 Returned 03/15/23. Admitted again with plan to transfer to [facility], [facility], to continue antibiotics until 04/15 to finish [...] dependence (CMS/HCC) 06/27/2022 Overview (08/23/2024): Admitted to [place] for rehab Treated w/ Methadone 40 mg at [facility] 03/16/23-04/15/23 -[facility] 08/23/24 Assessment & Plan (08/23/2024 2:45 PM EST): Admitted to [place] for rehab Treated w/ Methadone 40 mg at [facility] 03/16/23-04/15/23 -[facility] to [facility] [...] 2020 Overview (10/09/2022): 07/16/22 - Presented to [facility] ED with hypotension, found to be in septic shock 07/20/22 - Left hospital AMA before completing IV antibiotics. Blood cultures positive for GBS and required pressor support when he arrived. 07/21/22 - Mother took Pt to [facility] ED since he left [facility]. Pt IV drug use while at ED. [...] or fibrosis score as of 04/13/23 [facility] notes Assessment & Plan (08/06/2023 8:36 PM EDT): Hep C active complicated w decompensated cirrhosis with ascitis Hep C to start tx following now w GI at [facility] per pt Assessment & Plan (06/03/2023 2:07 PM EDT): Patient not sure if he received a referral to [facility] for hep c treatment or not. I will place a referral to our [facility] hep c team. Resolved Problems Problem Noted Date Diagnosed Date Resolved Date Chest pain 10/17/2024 08/16/2025 Elevated troponin 10/17/2024 08/16/2025 Endocarditis 10/17/2024 08/16/2025 Encounters Date Type Department Care Team Description 08/22/2025 Orders Only GENERIC EXTERNAL DATA DEPARTMENT Provider, Generic External Data 08/18/2025 8:40 AM EDT Office Visit [facility] [address] [address] Mikie Fagan MD Cellulitis of left lower extremity (Primary Dx) 08/18/2025 Travel 08/17/[address] [address] Humaira Bruno RN Hep C 08/16/2025 10:00 AM EDT Office Visit [address] [address] Sabas Junior MD Cellulitis of left lower extremity (Primary Dx); Ulcer of extremity due to chronic venous insufficiency (HCC) 08/16/2025 Travel 08/13/2025 Results Follow-Up [address] [address] Krystyna Vaughn MD XR Fingers 2+ Views Left 08/11/2025 2:20 PM EDT [facility] [address] [address] Krystyna Vaughn MD Finger pain, left (Primary Dx); Varicose veins of left lower extremity with inflammation; Tenosynovitis of finger 08/11/2025 Orders Only [address] [address] Krystyna Vaughn MD 08/11/2025 Travel 08/09/[address] [address] Humaira Bruno RN hep C tx 08/07/2025 10:20 AM EDT [facility] [address] [address] Isamar Adams MD Acute bronchitis, unspecified organism (Primary Dx) 08/07/2025 [facility] [address] [address] Isamar Adams MD 08/07/2025 Travel 08/03/[address] [address] Alba So NP ER Follow-up 07/26/[address] [phone] Humaira Bruno, NABEEL Hep C tx 07/25/[address] [phone] Krystyna Vaughn MD DME L&C Compression stockings 07/25/[address] [phone] Krystyna Vaughn MD RX Compresson stockings 07/24/[address] [phone] Alba So NP Durable Medical Equipment 07/20/2025 Results Follow-Up [address] [phone] Alba So NP XR Chest 2 Views 07/19/2025 10:00 AM EDT Office Visit [address] [address] Viviana Cruz FNP Hospital discharge follow-up (Primary Dx); Hemorrhage of varicose veins of lower extremity, bilateral; History of positive hepatitis C 07/19/2025 Orders Only [facility] External Provider, [facility] 07/19/2025 Travel 07/18/2025 9:20 AM EDT [facility] [address] [address] Nighat Galloway MD Hx pulmonary embolism (Primary Dx); Shortness of breath; Hx of heart failure 07/18/2025 Travel 07/17/[address] [phone] Malika Garnett, PharmD 07/15/2025 10:40 AM EDT Office Visit [facility] [address] [phone] Krystyna Vaughn MD Venous stasis dermatitis of both lower extremities (Primary Dx); Bleeding from varicose veins of left lower extremity 07/15/2025 Travel 07/11/2025 Patient Outreach [facility] [address] [place] [phone] Alba So NP Pre-visit Planning (HDF- scheduled with the direct line and SDOH screening completed on 01/19/2025) 07/07/2025 Results Follow-Up [address] [address] Alba So NP CBC auto differential, Complete Blood Count Manual Diff, Prothrombin Time-INR, Additional followed-up results: 7 06/06/2025 Orders Only GENERIC EXTERNAL DATA DEPARTMENT Provider, Generic External Data 06/04/2025 Orders Only GENERIC EXTERNAL DATA DEPARTMENT Provider, Generic External Data 05/30/2025 Telephone [facility] [address] [place] [phone] Leela Gamino RN from Last 3 Months [...] (186 lb) 08/18/2025 9:03 AM EDT Height 170.2 cm (5' 7 ) 08/16/2025 10:20 AM EDT Body Mass Index 29.13 08/16/2025 10:20 AM EDT Plan of Treatment Upcoming Encounters Date Type Department Care Team (Late st Contact Info) Description 09/25/2025 2:00 PM EST Office Visit [facility] [address] [place] [address] Alba So NP [address] [place] [address] Health Maintenance Due Date Last Done Comments [...] 10/18/2024 SDOH Screening 01/19/2026 01/19/2025 Tobacco Screening 08/18/2026 08/18/2025 DTaP/Tdap/Td Vaccines (2 - T d or [...] PE PROTOCAL Routine 08/22/2025 2:21 PM EST COVID-19 ID NOW (AisleFinder) Routine 08/22/2025 1:43 PM EST INFLUENZA A B2 ID NOW (CHEUNG) Routine 08/22/2025 1:43 PM EST LACTIC ACID Routine 08/22/2025 1:42 PM EST COMPREHENSIVE METABOLIC PANEL Routine 08/22/2025 1:42 PM EST COMPLETE BLOOD COUNT MAN DIF Routine 08/22/2025 1:42 PM EST CBC WITH AUTO DIFFERENTIAL Routine 08/22/2025 1:42 PM EST SLIDE REVIEW Routine 08/11/2025 3:17 PM EDT [...] 08/11/2025 3:17 PM EDT Tenosynovitis of finger KRYSTYNA SCREEN, IFA, W/REFL TITER AND PATTERN Routine 08/11/2025 3:17 PM EDT Tenosynovitis of [...] Maintenance Results * CTA Chest PE Protocal (08/22/2025 2:21 PM EST) Only the most recent of2 resultswithin the time period is included. Anatomical Region Laterality Modality Body, Chest Computed Tomogra phy 08/22/2025 2:21 PM EST Narrative 08/22/2025 3:10 PM EST [address] [address] [address] Scan Report Signed Patient: Norberto Marquez MR#: [id number] : 1990 Acct:[id number] Age/Sex: 34 / M ADM Date: 08/22/25 Loc: .ED Attending Dr: Ordering Physician: Norma Grant DO Date of Service: 08/22/25 Procedure(s): CT angio chest PE protocol Accession Number(s): [id number] cc: Norma Grant DO; [facility] Report Number: [id number]: Total DLP = 240.00 mGy-cm Reason for [...] by: Monica Richmond MD 08/22/2025 03:07 PM [facility] Dictated By: Monica Richmond MD Signed By: <Electronically signed by Monica Richmond MD in OV> 08/22/25 1507 DD/ 1421 TD/TT: 08/22/25 1439 Watcher [employer]: MICHAEL Procedure Note Donotuseinterpreter, Image - 08/22/[address] [address] [address] Scan Report Signed Patient: Zully Marquez#: [id number] : 1990Acct:[id number] Age/Sex: 34 / MADM Date: 08/22/25 Loc: HO.ED Attending Dr: Ordering Physician: Norma Grant DO Date of Service: 08/22/25 Procedure(s): CT angio chest PE protocol Accession Number(s): [id number] cc: Norma Grant DO; [facility] Report Number: [id number]: Total DLP = 240.00 mGy-cm Reason for [...] 08/22/25 1507 DD/ 1421 TD/TT: 08/22/25 1439 Watcher [employer]: MICHAEL [facility] External Provider IMG CT PROCEDURES Final Result * Influenza A B2 ID NOW (Cheung) (08/22/2025 1:43 PM EST) Only the most recent of2 resultswithin the time period is included. IDNOW SERIAL# [id number] [facility] Influenza A Negative Negative [facility] Influenza B2 Negative Negative [facility] Influenza A B2 Note See Note [facility] Comment:The Cheung ID NOW In [...] LAB MICROBIOLOGY - GENERAL ORDERABLES Final Result [facility] [address] [place] [address] [phone] * COVID-19 ID NOW (CHEUNG) (08/22/2025 1:43 PM EST) Only the most recent of2 resultswithin the time period is included. IDNOW SERIAL# [id number] [facility] COVID-19 TEST Negative Negative [facility] COVID-19 NOTE See Note [facility] Comment: Results are for the identification of SARS-CoV2 RNA. TheSARS-CoV2 RNA is generally detectable in respiratory samplesduring the acute phase of infection. Positive results areindicative of the presence of SARS-CoV-2 RNA; clinicalcorrelation with patient history and other diagnosticinformation is necessary to determine patient infectionstatus. Positive results do not rule out bacterial infectionor co- infection with other viruses.Testing facilities within the [facility] and itsterritories are required to report all [...] use by authorized laboratories.Testing performed on the [employer] ID NOW utilizing NAAT. 08/22/2025 1:43 PM EST 08/22/2025 1:54 PM EST us Generic External Data Provider LAB MOLECULAR [place] [facility] ORDERABLES Final Result [facility] [address], [place] [phone] * (ABNORMAL) Complete Blood Count Manual Diff (08/22/2025 1:42 PM EST) White Blood Count 10.5 4.8 - 10.8 X10*3/uL [facility] Red Blood Count 5.28 4.60 - 5.80 X10*6/uL [facility] Hemoglobin 13.1(L) 14.0 - 18.0 g/dl [facility] Hematocrit 42.2 42.0 - 52.0 % [facility] Mean Corpuscular Volume 79.9(L) 80.0 - 98.0 fL [facility] Mean Corpuscular Hemoglobin 24.8(L) 27.0 - 33.0 pg [facility] Mean Corpuscular HGB Conc 31.0 31.0 - 36.0 g/dl [facility] Red Cell Distribution Width 22.8(H) 11.0 - 16.0 % [facility] Platelet Count 202 160 - 400 X10*3/uL [facility] Mean Platelet Volume 9.2(L) 9.4 - 12.4 fL [facility] NRBC Pct Auto 0.0 0.0 - 0.2 /100WBC [facility] NRBC Abs Auto 0.000 0.0 - 0.012 X10*3/uL [facility] Neutrophils % Manual 73 45 - 73 % [facility] Band Neutrophils Percent 5 3 - 5 % [facility] Lymphocytes Percent Manual 11(L) 20 - 40 % [facility] Atypical Lymphs Percent Manual 3 0 - 6 % [facility] Monocytes Percent Manual 4 2 - 11 % [facility] EOSINOPHILS % MANUAL 2 0 - 4 % [facility] Metamyelocytes % (Manual) 2 % [facility] NEUTROPHILS ABSOLUTE MANUAL 8.2 2.0 - 8.3 X10*3/uL [facility] LYMPHOCYTES ABSOLUTE MANUAL 1.2 1.2 - 4.9 X10*3/uL [facility] Atypical Lymph Absolute Manual 0.3 x10*3/uL [facility] MONOCYTES ABSOLUTE MANUAL 0.4 0.1 - 1.2 X10*3/uL [facility] EOSINOPHILS ABSOLUTE MANUAL 0.2 0.0 - 0.4 X10*3/uL [facility] Absolute Metamyelocytes 0.2 X10*3/uL [facility] Platelet Estimate [facility] Large Platelet [facility] Platelet Morphology Comment NOTED [facility] RBC Morphology NOTED [facility] Ovalocytes 1+ (5-14) /OIF [facility] 08/22/2025 1:42 PM EST 08/22/2025 1:53 PM EST us Generic External Data Provider LAB BLOOD ORDERAB LES Final Result [facility] [address] [place] [phone] * (ABNORMAL) CBC auto differential (08/22/2025 1:42 PM EST) Only the most recent of5 resultswithin the time period is included. White Blood Count 10.5 4.8 - 10.8 X10*3/uL [facility] Red Blood Count 5.28 4.60 - 5.80 X10*6/uL [facility] Hemoglobin 13.1(L) 14.0 - 18.0 g/dl [facility] Hematocrit 42.2 42.0 - 52.0 % [facility] Mean Corpuscular Volume 79.9(L) 80.0 - 98.0 fL [facility] Mean Corpuscular Hemoglobin 24.8(L) 27.0 - 33.0 pg [facility] Mean Corpuscular HGB Conc 31.0 31.0 - 36.0 g/dl [facility] Red Cell Distribution Width 22.8(H) 11.0 - 16.0 % [facility] Platelet Count 202 160 - 400 X10*3/uL [facility] Mean Platelet Volume 9.2(L) 9.4 - 12.4 fL [facility] Neutrophils Percent Auto 68.9 45 - 73 % [facility] Imm Gran Pct Auto 6.5(H) 0.0 - 0.4 % [facility] Lymphocytes Percent Auto 16.6(L) 20 - 40 % [facility] Monocytes Percent Auto 5.5 2 - 11 % [facility] Eosinophils Percent Auto 1.6 0 - 4 % [facility] Basophils Percent Auto 0.9 0 - 2 % [facility] NRBC Pct Auto 0.0 0.0 - 0.2 /100WBC [facility] Neutrophils Absolute Auto 7.3 2.0 - 8.3 x10*3/uL [facility] Imm Gran Abs Auto 0.68(H) 0.00 - 0.03 X10*3/uL [facility] Lymphocytes Absolute Auto 1.8 1.2 - 4.9 X10*3/uL [facility] Monocytes Absolute Auto 0.6 0.1 - 1.2 X10*3/uL [facility] Eosinophils Absolute Auto 0.2 0.0 - 0.4 X10*3/uL [facility] Basophils Absolute Auto 0.1 0.0 - 0.2 X10*3/uL [facility] NRBC Abs Auto 0.000 0.0 - 0.012 X10*3/uL [facility] 08/22/2025 1:42 PM EST 08/22/2025 1:53 PM EST Generic External Data Provider LAB BLOOD ORDERAB LES Edited Result - Final Performing Organization Address [facility]/ZIP Co de Phone Number [facility] [address] [place] [phone] * Lactic Acid (08/22/2025 1:42 PM EST) Only the most recent of2 resultswithin the time period is included. Lactic Acid 1.5 0.5 - 2.0 mmol/L [facility] 08/22/2025 1:42 PM EST 08/22/2025 1:53 PM EST Generic External Data Provider LAB BLOOD ORDERAB LES Final Result Performing Organization Address [facility] Phone Number [facility] [address] [place] [phone] * (ABNORMAL) Comprehensive Metabolic Panel (08/22/2025 1:42 PM EST) Only the most recent of3 resultswithin the time period is included. Sodium 140 135 - 145 mmol/L [facility] Potassium 4.5 3.3 - 5.1 mmol/L [facility] Chloride 107 96 - 108 mmol/L [facility] Carbon Dioxide 25 22 - 29 mmol/L [facility] Anion Gap 13 12 - 20 [facility] Urea Nitrogen (BUN) 29(H) 9 - 16 mg/dL [facility] Creatinine, Serum 0.96 0.5 - 1.4 mg/dL [facility] Creatinine Clr Calc Pharmacy 114.9 [facility] Comment:eGFR (calculated fro m the MDRD study equation) and eCrCl(calculated from the Cockcroft-Gault equation) are based ondifferent parameters and may not yield comparable results.If eCrCl result is absurd, please check patient'sheight/weight. Estimated Glomerular Filt Rate >60 [facility] Comment:Chronic Kidney Disea se: Estimated GFR < 60 mL/min/1.00u3Rbzzuz Kidney Disease: Estimated GFR < 15 mL/min/1.73m2 Glucose 136(H) 60 - 115 mg/dL [facility] Calcium 9.4 8.4 - 10.2 mg/dL [facility] Bilirubin, Total 0.7 0.0 - 1.0 mg/dL [facility] Aspartate Amino Transferase 42(H) 5 - 37 U/L [facility] Alanine Aminotransferase 60(H) 0 - 40 U/L [facility] Total Protein 7.8 6.5 - 8.0 g/dL [facility] Albumin Level 4.1 3.5 - 5.0 g/dL [facility] Alkaline Phosphatase 212(H) 39 - 117 U/L [facility] 08/22/2025 1:42 PM EST 08/22/2025 1:53 PM EST us Generic External Data Provider LAB BLOOD ORDERAB LES Final Result Performing Organization Address City/[facility]/ZIP Co de Phone Number [facility] [address] [place] [phone] * Slide Review (08/11/2025 3:17 PM EDT) Only the most recent of2 resultswithin the time period is included. Slide Review VERIFIED [facility] 08/11/2025 3:17 PM EDT 08/11/2025 4:07 PM EDT us Krystyna Vaughn MD LAB BLOOD ORDERABLES Fin al Result Performing Organization Address [facility]/ZIP Co de Phone Number [facility] [address] [place] [phone] [phone] * (ABNORMAL) Hepatitis Panel, General (08/11/2025 3:17 PM EDT) Hepatitis A IgM Nonreactive Nonreactive [facility] Comment:IgM antibodies to DARDEN V not detected; does not exclude earlyacute or recovered HAV infection. ~Hepatitis B Surface Antibody REACTIVE Nonreactive [facility] Comment:REACTIVE: > 11.99 mI U/mL Hepatitis B Core Antibody Nonreactive Nonreactive [facility] Hepatitis C Antibody Reactive(A) Nonreactive [facility] Comment:Presumptive evidence of antibodies to HCV. Hepatitis B Surface Ag Negative Negative [facility] Blood 08/11/2025 3:17 PM EDT 08/11/2025 6:18 PM EDT Krystyna Vaughn MD LAB BLOOD ORDERABLES Fin al Result Performing Organization Address City/[facility] Co de Phone Number [facility] [address] [place] [phone] * Sed Rate by Modified Adalidergren (08/11/2025 3:17 PM EDT) Erythrocyte Sedimentation Rate 9 0 - 15 MM/HR [facility] Comment:Patients with polycy themia and many hemoglobin abnormalitiesmay have depressed sed rates whereas patients with anemiamay have elevated sed rates. Blood Venous blood specimen / Unknown 08/11/2025 3:17 PM EDT 08/11/2025 4:07 PM EDT Krystyna Vaughn MD LAB BLOOD ORDERABLES Fin al Result Performing Organization Address [facility] Co de Phone Number [facility] [address] [place] [phone] * Rheumatoid Factor (08/11/2025 3:17 PM EDT) Rheumatoid Factor <13.0 <15.0 IU/mL [facility] Blood Venous blood specimen / Unknown 08/11/2025 3:17 PM EDT 08/11/2025 6:18 PM EDT Krystyna Vaughn MD LAB BLOOD ORDERABLES Fin al Result Performing Organization Address City/[facility] Co de Phone Number [facility] [address] [place] [phone] * (ABNORMAL) C-reactive Protein (08/11/2025 3:17 PM EDT) Pathologist [facility] C Reactive Protein 6.24(H) < or = 0.50 mg/dL [facility] Blood Venous blood specimen / Unknown 08/11/2025 3:17 PM EDT 08/11/2025 6:18 PM EDT us Krystyna Vaughn MD LAB BLOOD ORDERABLES Fin al Result [facility] [address] [place] [phone] * KRYSTYNA Screen,IFA, with Reflex to Titer and Pattern (08/11/2025 3:17 PM EDT) Pathologist [facility] Anti Nuclear Antibody Screen NEGATIVE NEGATIVE [facility] Comment:KRYSTYNA IFA is a first l ine screen for detecting thepresence of up to approximately 150 autoantibodies invarious autoimmune diseases. A negative KRYSTYNA IFA resultsuggests an KRYSTYNA-associated autoimmune disease is notpresent at this time, but is not definitive. If thereis high clinical suspicion for Sjogren's syndrome,testing for anti-SS-A/Ro antibody should be considered.Anti-Vanda-1 antibody should be considered for clinicallysuspected inflammatory myopathies.AC-0: NegativeInternational Consensus on KRYSTYNA Patterns(https://doi.org/10.1515/qfpx-2558-3997)For additional information, please refer tohttp://education.Dezineforce.Holvi/faq/FIM756(This link is being provided for informational/educational purposes only.)THIS TEST WAS PERFORMED AT:[facility] [place] [phone] DAVIS MD KRYSTYNA Titer TNP [facility] KRYSTYNA Pattern TNP [facility] KRYSTYNA Titer 2 TNP [facility] KRYSTYNA Pattern 2 TNP [facility]NA TITER 3 [facility] K[facility]NA PATTERN 3 TNP [facility] Blood Venous blood specimen / Unknown 08/11/2025 3:17 PM EDT 08/11/2025 6:18 PM EDT Krystyna Vaughn MD LAB BLOOD ORDERABLES Fin al Result Performing Organization Address [facility]/ZIP Co de Phone Number [facility] [address] [place] [phone] * (ABNORMAL) Uric acid (08/11/2025 3:17 PM EDT) Uric Acid 9.2(H) 3.4 - 7.0 mg/dL [facility] Blood Venous blood specimen / Unknown 08/11/2025 3:17 PM EDT 08/11/2025 6:18 PM EDT Krystyna Vaughn MD LAB BLOOD ORDERABLES Fin al Result Performing Organization Address [facility] Co de Phone Number [facility] [address] [place] [phone] * XR Fingers 2+ Views Left (08/11/2025 2:58 PM EDT) Anatomical Region Laterality Modality Upper Extremities, Fingers Left Radio graphic Imaging 08/11/2025 2:58 PM EDT Narrative 08/11/2025 3:06 PM EDT [address] [address] XRay Report Signed Patient: Norberto Marquez MR#: [id number] : 1990 Acct:[id number] Age/Sex: 34 / M ADM Date: 08/11/25 Loc: HO.HHCX Attending Dr: Krystyna Vaughn MD Ordering Physician: Krystyna Vaughn MD Date of Service: 08/11/25 Procedure(s): XR finger LT min 2V Accession Number(s): [id number] cc: Krystyna Vaughn MD Reason for Exam: left 2nd [...] 08/11/25 1503 DD/ 1458 TD/TT: 08/11/25 1448 Watcher [employer]: MICHAEL Procedure Note Donotuseinterpreter, Image - 08/11/[address] [address] XRay Report Signed Patient: Zully Marquez#: [id number] : 1990Acct:[id number] Age/Sex: 34 / MADM Date: 08/11/25 Loc: HO.HHCX Attending Dr: Krystyna Vaughn MD Ordering Physician: Krystyna Vaughn MD Date of Service: 08/11/25 Procedure(s): XR finger LT min 2V Accession Number(s): [id number] cc: Krystyna Vaughn MD Reason for Exam: left 2nd [...] 08/11/25 1503 DD/ 1458 TD/TT: 08/11/25 1448 Watcher [employer]: MICHAEL Krystyna Vaughn MD IMG XR PROCEDURES Final Result * POCT Rapid COVID Ag (08/07/2025 9:54 AM EDT) Only the most recent of2 resultswithin the time period is included. Rapid COVID Ag Negative Swab 08/07/2025 9:54 AM EDT Result [facility] Isamar Adams MD POINT OF CARE TEST ENTER/EDIT OR DERABLES Final Result * POCT rapid strep A manually resulted (08/07/2025 9:54 AM EDT) Only the most recent of2 resultswithin the time period is included. [facility] Signature Rapid Strep A Screen Negative Negative, None Detected Swab 08/07/2025 9:54 AM EDT Isamar Adams MD POINT OF CARE TEST ENTER/EDIT OR DERABLES Final Result * (ABNORMAL) Drug Monitoring, Panel 1, Screen, Urine (07/19/2025 8:51 PM EDT) Only the most recent of3 resultswithin the time period is included. Opiate Screen Urine Not Detected Not Detect [facility] Comment:Opiate cut-off is 30 0 ng/mL.Positive results are unconfirmed and should not be used fornon-medical purposes. Barbiturates, Urine Not Detected Not Detect [facility] Comment:Barbiturate cut-off is 200 ng/mL.Positive results are unconfirmed and should not be used fornon-medical purposes. Phencyclidine Screen Urine Not Detected Not Detect [facility] Comment:Phencyclidine cut-of f is 25 ng/mL.Positive results are unconfirmed and should not be used fornon-medical purposes. Amphetamine Screen Urine Not Detected Not Detect [facility] Comment:Amphetamine cut-off is 1000 ng/mL.Positive results are unconfirmed and should not be used fornon-medical purposes. Benzodiazepines Screen Urine Not Detected Not Detect [facility] Comment:Benzodiazepine cut-o ff is 200 ng/mL.Positive results are unconfirmed and should not be used fornon-medical purposes. Cocaine Screen Urine Not Detected Not Detect [facility] Comment:Cocaine cut-off is 3 00 ng/mL.Positive results are unconfirmed and should not be used fornon-medical purposes. Cannabinoid Screen Urine Not Detected Not Detect [facility] Comment:Cannabinoid cut-off is 50 ng/mL.Positive results are unconfirmed and should not be used fornon-medical purposes. Methadone Screen, Urine Positive(A) Not Detect ng/mL [facility] Comment:Methadone cut-off is 300 ng/mL.Positive results are unconfirmed and should not be used fornon-medical purposes. FENTANYL URINE Not Detected Not Detect [facility] Comment:Fentanyl cut-off is 1 ng/mL.Positive results are unconfirmed and should not be used fornon-medical purposes. Oxycodone Urine Screen Not Detected Not Detect ng/mL [facility] Comment:Oxycodone cut-off is 100 ng/mL.Positive results are unconfirmed and should not be used fornon-medical purposes. Buprenorphine Screen Not Detected Not Detect ng/mL [facility] Comment:Buprenorphine cut-of f is 5 ng/mL.Positive results are unconfirmed and should not be used fornon-medical purposes. 07/19/2025 8:51 PM EDT 07/19/2025 8:52 PM EDT us Generic External Data Provider LAB URINE ORDERAB LES Final Result [facility] [address] [place] [address] [phone] * XR Chest 2 Views (07/19/2025 6:24 PM EDT) Anatomical Region Laterality Modality Chest Radiographic Ladan ging 07/19/2025 6:24 PM EDT Narrative 07/19/2025 6:26 PM EDT [place] [address] XRay Report Signed Patient: Norberto Marquez MR#: [id number] : 1990 Acct:[id number] Age/Sex: 34 / M ADM Date: 07/19/25 Loc: HO.ED Attending Dr: Ordering Physician: Alana Carreon Date of Service: 07/19/25 Procedure(s): XR chest 2V Accession Number(s): [id number] cc: [facility]; Alana Carreon Reason for Exam: SOB [...] in OV> 07/19/251824 DD/ 23 TD/TT: 07/19/251823 Watcher [employer]: Procedure Note Donvanessainterpreter, Image - 07/19/2025 [place] [address] XRay Report Signed Patient: Marcelo MarquezR#: [id number] : 1990Acct:[id number] Age/Sex: 34 / MADM Date: 07/19/25 Loc: HO.ED Attending Dr: Ordering Physician: Alana Carreon Date of Service: 07/19/25 Procedure(s): XR chest 2V Accession Number(s): [id number] cc: [facility]; Alana Carreon Reason for Exam: SOB [...] in OV> 07/19/251824 DD/ 23 TD/TT: 07/19/251823 Watcher [employer]: [facility] External Provider IMG XR PROCEDURES Final Result * High Sensitivity Troponin I (07/19/2025 6:22 PM EDT) Only the most recent of3 resultswithin the time period is included. [facility] TROPONIN I HIGH SENSITIVITY 3.3 <3.5 - 35.0 ng/L [facility] Comment:The Cheung high sens itivity Troponin-I results should beused in conjunction with other diagnostic information suchas ECG, clinical observations and information, and patientsymptoms to aid in the diagnosis of MO. 07/19/2025 6:22 PM EDT 07/19/2025 6:27 PM EDT Generic External Data Provider LAB BLOOD ORDERAB LES Final Result [facility] [address] [place] [phone] * Ethanol (07/19/2025 6:22 PM EDT) Only the most recent of2 resultswithin the time period is included. ETHANOL (MG/DL) IN SER/PLAS <10 mg/dL [facility] Comment:Serum/plasma ethanol results are to be used formedical/treatment purposes only. 07/19/2025 6:22 PM EDT 07/19/2025 6:27 PM EDT Generic External Data Provider LAB BLOOD ORDERAB LES Final Result Performing Organization Address City/[facility]/ZIP Co de Phone Number [facility] [address] [place] [phone] * NT-proBNP (07/19/2025 6:22 PM EDT) NT-proBNP 251.0 <300 pg/mL [facility] Comment:Reference Range:Age Group (years) NT-proBNP (pg/ml) InterpretationAll <300 Negative: HF unlikelyFor patients presenting to the ED with clinical suspicion ofnew onset or worsening HF, see below:18 to <50 >299.9 to <450.0 Grayzone: Enqostot73 to 75 >299.9 to <900.0 other causes of>75 >299.9 to <1800.0 NT-proBNP cactswkdc57 to <50 >449.9 Positive: HF [id number] >899.9>75 >1799.9Note: Elevated NT-proBNP levels should be interpreted inthe context of other clinical information. 07/19/2025 6:22 PM EDT 07/19/2025 6:27 PM EDT Generic External Data Provider LAB BLOOD ORDERAB LES Final Result Performing Organization Address City/[facility]/ZIP Co de Phone Number [facility] [address] [place] [phone] * Magnesium (07/19/2025 6:22 PM EDT) Only the most recent of3 resultswithin the time period is included. Magnesium 1.6 1.6 - 2.6 mg/dL [facility] 07/19/2025 6:22 PM EDT 07/19/2025 6:27 PM EDT us Generic External Data Provider LAB BLOOD ORDERAB LES Final Result Performing Organization Address [facility] Co de Phone Number [facility] [address] [place] [phone] * (ABNORMAL) Ammonia, Plasma (07/19/2025 6:22 PM EDT) Ammonia (P) 59(H) 13 - 55 umol/L [facility] 07/19/2025 6:22 PM EDT 07/19/2025 6:27 PM EDT us Generic External Data Provider LAB BLOOD ORDERAB LES Final Result Performing Organization Address [facility] Phone Number [facility] [address] [place] [phone] * (ABNORMAL) Hepatic Function Panel (07/19/2025 6:22 PM EDT) Bilirubin, Total 0.9 0.0 - 1.0 mg/dL [facility] Bilirubin, Direct 0.5 0.0 - 0.5 mg/dL [facility] Aspartate Amino Transferase 94(H) 5 - 37 U/L [facility] Alanine Aminotransferase 81(H) 0 - 40 U/L [facility] Total Protein 7.1 6.5 - 8.0 g/dL [facility] Albumin Level 4.0 3.5 - 5.0 g/dL [facility] Alkaline Phosphatase 273(H) 39 - 117 U/L [facility] 07/19/2025 6:22 PM EDT 07/19/2025 6:27 PM EDT us Generic External Data Provider LAB BLOOD ORDERAB LES Final Result Performing Organization Address [facility] Co de Phone Number [facility] [address] [place] [phone] * (ABNORMAL) Basic Metabolic Panel (07/19/2025 6:22 PM EDT) Sodium 138 135 - 145 mmol/L [facility] Potassium 4.5 3.3 - 5.1 mmol/L [facility] Chloride 109(H) 96 - 108 mmol/L [facility] Carbon Dioxide 21(L) 22 - 29 mmol/L [facility] Anion Gap 13 12 - 20 [facility] Urea Nitrogen (BUN) 21(H) 9 - 16 mg/dL [facility] Creatinine, Serum 0.79 0.5 - 1.4 mg/dL [facility] Creatinine Clr Calc Pharmacy 126.2 [facility] Comment:eGFR (calculated fro m the MDRD study equation) and eCrCl(calculated from the Cockcroft-Gault equation) are based ondifferent parameters and may not yield comparable results.If eCrCl result is absurd, please check patient'sheight/weight. Estimated Glomerular Filt Rate >60 [facility] Comment:Chronic Kidney Disea se: Estimated GFR < 60 mL/min/1.46e8Gzerxz Kidney Disease: Estimated GFR < 15 mL/min/1.73m2 Glucose 98 60 - 115 mg/dL [facility] Calcium 9.6 8.4 - 10.2 mg/dL [facility] 07/19/2025 6:22 PM EDT 07/19/2025 6:27 PM EDT us Generic External Data Provider LAB BLOOD ORDERAB LES Final Result [facility] [address] [place] [phone] * Influenza B (ID NOW Rapid Molecular) (07/18/2025 12:57 PM EDT) Influenza B Negative Negative, Indeterminate [facility] Swab 07/18/2025 12:5 7 PM EDT Nighat Galloway MD POINT OF CARE TEST ENTER/E DIT ORDERABLES Final Result Performing Organization Address [facility] Co de Phone Number [facility] [address] [place] [phone] * Influenza A (ID NOW Rapid Molecular) (07/18/2025 12:57 PM EDT) Influenza A Negative Negative, Indeterminate [facility] Swab 07/18/2025 12:5 7 PM EDT Nighat Galloway MD POINT OF CARE TEST ENTER/E DIT ORDERABLES Final Result Performing Organization Address [facility] de Phone Number [facility] [address] [place] [phone] * CT Head w/o Contrast (06/08/2025 10:44 AM EDT) Anatomical Region Laterality Modality Head, Neck Computed Tomogra phy 06/08/2025 10:4 4 AM EDT Narrative 06/08/2025 12:17 PM EDT [address] [address] [address] Scan Report Signed Patient: Norberto Marquez MR#: [id number] : 1990 Acct:[id number] Age/Sex: 34 / M ADM Date: 06/06/25 Loc: [facility] 471-[address]: David Altman MD Ordering Physician: David Altman MD Date of Service: 06/08/25 Procedure(s): CT head/brain wo IV con Accession Number(s): [id number] cc: [facility]; David Altman MD Report Number: [id number]: Total DLP = 1453.00 mGy-cm EXAMINATION: CT [...] 06/08/25 1215 DD/ 1044 TD/TT: 06/08/25 1158 Watcher [employer]: Procedure Note Donotuseinterpreter, Image - 06/08/[address] [place] [address] [address] Scan Report Signed Patient: Zully Marquez#: [id number] : 1990Acct:[id number] Age/Sex: 34 / MADM Date: 06/06/25 Loc: [facility] 471-[address]: David Altman MD Ordering Physician: David Altman MD Date of Service: 06/08/25 Procedure(s): CT head/brain wo IV con Accession Number(s): [id number] cc: [facility]; David Altman MD Report Number: [id number]: Total DLP = 1453.00 mGy-cm EXAMINATION: CT [...] Escudero MD Signed By: <Electronically signed by Jarerd Escudero MD in OV> 06/08/25 1215 DD/ 1044 TD/TT: 06/08/25 1158 Watcher [employer]: [facility] External Provider IMG CT PROCEDURES Final Result * CT Abdomen Pelvis w/o Contrast (06/07/2025 10:44 AM EDT) Anatomical Region Laterality Modality Body, Pelvis, Abdomen Computed T omography 06/07/2025 10:4 4 AM EDT Narrative 06/08/2025 12:28 PM EDT [address] [address] [address] Scan Report Signed Patient: Norberto Marquez MR#: [id number] : 1990 Acct:[id number] Age/Sex: 34 / M ADM Date: 06/06/25 Loc: [facility] 471-[address]: David Altman MD Ordering Physician: Allison Mejía Date of Service: 06/07/25 Procedure(s): CT abdomen pelvis wo IV con Accession Number(s): [id number] cc: Allison Mejía [facility]; [facility] Report Number: [id number]: Total DLP = 1453.00 mGy-cm EXAMINATION: CT [...] 06/08/25 1224 DD/ 1044 TD/TT: 06/08/25 1158 Watcher [employer]: Procedure Note Aminalianet, Image - 06/08/[address] [place] [address] [address] Scan Report Signed Patient: Zully Marquez#: [id number] : 1990Acct:[id number] Age/Sex: 34 / MADM Date: 06/06/25 Loc: [facility] 471-[address]: David Altman MD Ordering Physician: Allison Mejía Date of Service: 06/07/25 Procedure(s): CT abdomen pelvis wo IV con Accession Number(s): [id number] cc: [facility]; [facility] Report Number: [id number]: Total DLP = 1453.00 mGy-cm EXAMINATION: CT [...] 06/08/25 1224 DD/ 1044 TD/TT: 06/08/25 1158 Watcher [employer]: [facility] External Provider IMG CT PROCEDURES Final Result * VASC US Lower Extremity Venous Duplex Bilateral (06/07/2025 8:50 AM EDT) 06/07/2025 8:50 AM EDT Narrative [facility] - 06/07/2025 9:16 AM EDT [place] [address] Ultrasound Report Signed Patient: Norberto Marquez MR#: [id number] : 1990 Acct:[id number] Age/Sex: 34 / M ADM Date: 06/06/25 Loc: [facility]: David Altman MD Ordering Physician: Allison Mejía Date of Service: 06/07/25 Procedure(s): US venous duplex LE BI Accession Number(s): [id number] [facility] EXAMINATION: US TRIPLEX LOWER EXTREMITY, BILATERAL [...] 06/07/25 0913 DD/ 0850 TD/TT: 06/07/25 0900 Watcher [employer]: Procedure Note Donotuseinterpreter, Image - 06/07/2025 [place] [address] Ultrasound Report Signed Patient: Zully Marquez#: [id number] : 1990Acct:[id number] Age/Sex: 34 / MADM Date: 06/06/25 Loc: [facility]-[address]: David Altman MD Ordering Physician: Allison Mejía [facility] Date of Service: 06/07/25 Procedure(s): US venous duplex LE BI Accession Number(s): [id number] cc: [place] [facility]; [facility] EXAMINATION: US TRIPLEX LOWER EXTREMITY, BILATERAL [...] Cory Krishnan MD in OV> 06/07/25912 DD/ 0850 TD/TT: 06/07/25 0900 Watcher [employer]: [facility] External Provider CV VASC ULAR PROCEDURES Final Result Performing Organization Address City/State/[facility] Co de Phone Number [facility] [address] [place] [address] * XR Tibia Fibula 2 Views Left (06/07/2025 7:15 AM EDT) Anatomical Region Laterality Modality Lower Extremities, Lower Leg Left Rad iographic Imaging 06/07/2025 7:15 AM EDT Narrative 06/07/2025 8:29 AM EDT [place] [address] XRay Report Signed Patient: Norberto Marquez MR#: [id number] : 1990 Acct:[id number] Age/Sex: 34 / M ADM Date: 06/06/25 Loc: [facility]: David Altman MD Ordering Physician: Allison Mejía [facility] Date of Service: 06/07/25 Procedure(s): XR tibia fibula LT 2V Accession Number(s): [id number] cc: Allison Mejía [facility]; [facility] EXAMINATION: XR TIBIA AND FIBULA, LEFT [...] by Cory Krishnan MD in OV> 06/07/25 08 DD/ 07 TD/TT: 06/07/25 0732 Watcher [employer]: Procedure Note Donotuseinterpreter, Image - 06/07/2025 [place] [address] XRay Report Signed Patient: Zully Marquez#: [id number] : 1990Acct:[id number] Age/Sex: 34 / MADM Date: 06/06/25 Loc: [facility]-[address]: David Altman MD Ordering Physician: Allison Mejía [facility] Date of Service: 06/07/25 Procedure(s): XR tibia fibula LT 2V Accession Number(s): [id number] cc: [place] [facility]; [facility] EXAMINATION: XR TIBIA AND FIBULA, LEFT [...] by Cory Krishnan MD in OV> 06/07/25 08 DD/ TD/TT: 06/07/25 0732 Watcher [employer]: [facility] External Provider IMG XR PROCEDURES Final Result * (ABNORMAL) Urinalysis, Complete, with Reflex to Culture (06/06/2025 9:11 PM EDT) Only the most recent of2 resultswithin the time period is included. Color Urine Yellow [facility] Appearance Urine Clear [facility] PH 6.0 5.0 - 9.0 [facility] Glucose Urine UA Negative Negative mg/dL [facility] Urine Blood Trace(A) Negative [facility] Specific [place] - Urine 1.015 1.005 - 1.025 [facility] Urine Protein Negative Neg-Trace mg/dL [facility] Urine Ketones Negative Negative mg/dL [facility] Nitrite Urine Negative Negative [facility] Leukocyte Esterase Urine Negative Negative [facility] RBC Urine 6-10(A) 0 - 2 /HPF [facility] Urine WBC 0-5 0 - 5 /HPF [facility] Urine Squamous Epithelial Cell 0-2 0 - 2 /HPF [facility] Urine Bacteria None Seen None Seen [facility] Hyaline Casts, Urine 0-2 0 - 2 /LPF [facility] 06/06/2025 9:11 PM EDT 06/06/2025 9:15 PM EDT Narrative [facility] - 06/06/2025 10:06 PM EDT [id number], Clean Catch us Generic External Data Provider LAB URINE ORDERAB LES Final Result [facility] [address] [place] [phone] * D Dimer High Sensitivity (06/06/2025 3:18 PM EDT) Only the most recent of2 resultswithin the time period is included. D Dimer High Sensitivity 1,296 NG/ML [facility] Comment:D-DIMER HS REFERENCE RANGENote: Our [...] ORDERAB LES Final Result Performing Organization Address [facility] Co de Phone Number [facility] [address] [place] [phone] * (ABNORMAL) Prothrombin Time-INR (06/06/2025 3:18 PM EDT) Prothrombin Time 25.0(H) 10.9 - 12.4 SEC [facility] INTERNATIONAL NORM RATIO 2.2(H) 0.9 - 1.1 [facility] Comment:INTERNATIONAL NORMAL IZED RATIO (INR) [...] ORDERAB LES Final Result Performing Organization Address [facility] Co de Phone Number [facility] [address] [place] [phone] * Glucose, Whole Blood (06/04/2025 7:02 PM EDT) Only the most recent of2 resultswithin the time period is included. Glucose, Whole Blood 115 60 - 115 mg/dL [facility] Comment:METER #: [id number] 06/04/2025 7:02 PM EDT 06/04/2025 7:06 PM EDT us Generic External Data Provider LAB BLOOD ORDERAB LES Final Result Performing Organization Address [facility] Co de Phone Number [facility] [address] [place] [phone] * Blood Culture (Second) (06/04/2025 4:39 PM EDT) Blood Venous blood specimen / Unknown 06/04/2025 4:39 PM EDT 06/04/2025 4:46 PM EDT Comment:Blood Narrative [facility] - 06/09/2025 6:47 PM EDT Blood Culture (Second) No growth after 5 days. Specimen Source: Blood us Generic External Data Provider LAB MICROBIOLOGY - GENERAL ORDERABLES Final Result Performing Organization Address [facility] Co de Phone Number [facility] [address] [place] [phone] * (ABNORMAL) Creatine Kinase, Total (06/04/2025 4:39 PM EDT) Creatine Kinase Total 504(H) 38 - 174 U/L [facility] 06/04/2025 4:39 PM EDT 06/04/2025 4:46 PM EDT us Generic External Data Provider LAB BLOOD ORDERAB LES Final Result Performing Organization Address [facility] Co de Phone Number [facility] [address] [place] [phone] * Lower Extremity Venous Duplex (06/04/2025 4:06 PM EDT) 06/04/2025 4:06 PM EDT Narrative [facility] - 06/05/2025 8:20 AM EDT [address] [address] Ultrasound Report Signed Patient: Norberto Marquez MR#: [id number] : 1990 Acct:[id number] Age/Sex: 34 / M ADM Date: 06/04/25 Loc: HO.ED Attending Dr: Ordering Physician: Fartun Farris Date of Service: 06/04/25 Procedure(s): US venous duplex LE LT Accession Number(s): [id number] cc: [facility]; Fartun Farris EXAMINATION: US LOWER EXTREMITY [...] 06/05/25 0817 DD/ 1606 TD/TT: 06/04/25 1612 Watcher [employer]: Procedure Note Donotuseinterpreter, Image - 06/05/[address] [address] Ultrasound Report Signed Patient: Zully Marquez#: [id number] : 1990Acct:[id number] Age/Sex: 34 / MADM Date: 06/04/25 Loc: .ED Attending Dr: Ordering Physician: Fartun Farris Date of Service: 06/04/25 Procedure(s): US venous duplex LE LT Accession Number(s): [id number] cc: [facility]; Fartun Farris EXAMINATION: US LOWER EXTREMITY [...] 06/05/25 0817 DD/ 1606 TD/TT: 06/04/25 1612 Watcher Automat [employer]s: [facility] External Provider CV VASC ULAR PROCEDURES Final Result Performing Organization Address City/[facility]/ZIP Co de Phone Number [facility] [address] [place] [phone] * Blood Culture (First) (06/04/2025 3:15 PM EDT) Blood Venous blood specimen / Unknown 06/04/2025 3:15 PM EDT 06/04/2025 3:26 PM EDT Comment:Blood Narrative [facility] - 06/09/2025 5:27 PM EDT Blood Culture (First) No growth after 5 days. Specimen Source: Blood Generic External Data Provider LAB MICROBIOLOGY - GENERAL ORDERABLES Final Result Performing Organization Address City/[facility]/ZIP Co de Phone Number [facility] [address] [place] [phone] * HIV-1/2 Antigen and Antibodies, Fourth Generation, with Reflexes (04/08/2024 11:52 AM EDT) HIV AB/AG Nonreactive Nonreactive [facility] Comment:HIV-1 p24 Ag and/or HIV-1/HIV-2 Ab not detected.A test result that is nonreactive does not exclude thepossibility of exposure to or infection with HIV-1 and/orHIV-2. Nonreactive results in this assay for individualswith prior exposure to HIV-1 and/or HIV-2 may be due toantigen and antibody levels that are below the limit ofdetection of this assay.The [employer] HIV Ag/Ab Combo assay result andsupplemental assay results should be interpreted inconjunction with the patient's clinical presentation,history and other laboratory results. If the results areinconsistent with clinical evidence, additional testing issuggested to confirm the result. Blood Venous blood specimen / Unknown 04/08/2024 11:52 AM EDT 04/08/2024 12:58 PM EDT us Alba So NP LAB BLOOD ORDERABLES Final Resu lt [facility] [address] [place] [phone] from Last 3 Months or Most Recently Relevant to Health Maintenance Insurance [facility] STAND[facility] Care Teams [facility] Shift Lead Relationship Specialty Start Date End Date Alba So NP [address] [place] [id number] PCP - General Family Medicine 04/14/24
--- OUTSIDE RECORDS SUMMARY | 2025-08-22 16:52 | XMS_ITS | Encounter Summary ---
Author Organization [facility] Address [address] [place] [id number] Phone Care Team Providers Care Special Agent In Charge Name Role Phone Pcp, Unknown Primary Care Provider Unavailabl e Encounter Details Date Type Department Care Team (Late st Contact Info) Description 10/20/2023 Transcribe Orders Virtual Department [address] [place] [address] Lucy Best PA [address] [place], [place] [id number] [email or web address] Anemia, unspecified type (Primary Dx) Social History [...] Primary documented in this encounter Care Teams Special Agent In Charge Relationship Specialty Start Date End Date Pcp, Unknown PCP - General 12/06/19 documented as of this encounter Additional Source Comments The information contained in this document represents components of the legal health record. It is not the complete legal health record.[facility]
--- OUTSIDE RECORDS SUMMARY | 2025-08-22 16:52 | XMS_ITS | Encounter Summary ---
Author Organization [email or web address] Address [address] 7[address] [place] [address] Care Team Providers Care Project Safety Manager Name Role Phone Alba So NP Primary Care Provider [phone] Encounter Details Date Type Department Care Team ([facility] st Contact Info) Description 07/20/2025 Results Follow-Up [facility] [address] [place] [address] Alba So NP [address] [place] [address] XR Chest 2 Views Social History Tobacco [...] Description 09/25/2025 2:00 PM EST Office Visit [facility] [address] [place] [address] Alba So NP [address] [place] [address] documented as of this encounter Visit Diagnoses Not on filedocumented in this encounter Additional Health Concerns Assessment Noted Time PHQ-9 Depression Total Score: 18 024 11:56 AM EST documented as of this encounter Care Teams Project Safety Manager Relationship Specialty Start Date End Date Alba So NP [address] [place] [address] PCP - General Family Medicine 04/14/24 documented as of this encounter
== END 2025-08-22 17:24 | disposition home or self-care (01) ==
PROVIDERS: Emergency Provider Student in an Organized Health Care Education/Training Program
DX: J18.9 Pneumonia, unspecified organism (principal); R04.2 Hemoptysis; F17.210 Nicotine dependence, cigarettes, uncomplicated; F11.20 Opioid dependence, uncomplicated; Z79.01 Long term (current) use of anticoagulants; Z95.2 Presence of prosthetic heart valve; Z59.01 Sheltered homelessness
CPT/HCPCS: 36415; 71275; 80053; 83605; 85007; 85027; 87040; 87502; 87635; 94640; 96361; 96374; 99285; J2151; Q9967

== ENCOUNTER → 2025-08-22 13:20 | Outpatient (BNV) | payer MEDICAID, SELFPAY | PROVIDERS: Emergency Provider Student in an Organized Health Care Education/Training Program; Visit Provider Radiology Diagnostic Radiology | DX: R04.2 Hemoptysis (principal) | CPT/HCPCS: 71275 ==

== ENCOUNTER 2025-08-28 15:10 | Emergency (ER) | payer MEDICAID, SELFPAY ==
--- NOTE | ~2025-08-28 | US_ITS ---
CLINICAL HISTORY: swelling, pain Right lower extremity venous duplex ultrasound Comparison: 06/07/25 Findings: The visualized deep veins are fully compressible with normal flow. Dilated and tortuous superficial veins. No popliteal cyst. Impression: No deep vein thrombosis. This document has been electronically signed by: Jahaira Zamora MD on 08/28/2025 17:44:46
--- OUTSIDE RECORDS SUMMARY | 2025-08-28 13:00 | XMS_ITS | Encounter Summary ---
Author Organization [employer] Address [address] [place] [address] Care Team Providers Care Construction Grip Name Role Phone Alba So GENEVA Primary Care Provider [phone] Encounter Details Date Type Department Care Team (Late st Contact Info) Description 08/28/2025 1:00 PM EST Office Visit [facility] [address] [place] [address] Tami House MD [address] [place] [address] Cellulitis of lower extremity, unspecified laterality (Primary [...] PLEASE SEE ATTACHED FOR DETAILED DIRECTIONS [] [id number] (Neosporin) 5-400-5000 ointment Apply topically Once per [...] Description 09/25/2025 2:00 PM EST Office Visit [facility] [address] [place] [address] Alba So NP [address] [place] [address] documented as of this encounter Visit Diagnoses Diagnosis Cellulitis of lower extremity, unspecified laterality- Primary documented in this encounter Additional Health Concerns Assessment Noted Time PHQ-9 Depression Total Score: 18 024 11:56 AM EST documented as of this encounter Care Teams Construction Grip Relationship Specialty Start Date End Date Alba So NP [address] [place] [address] PCP - General Family Medicine 04/14/24 documented as of this encounter
[2025-08-28 15:29] VITALS: BP 113/77; PULSE 121; RESP 22; TEMP 36.6; O2SAT 92; BMI 30.1
--- NOTE | 2025-08-28 15:31 | ED.GENADULT ---
HPI - General Adult General Chief complaint: Extremity Problem Stated complaint: right leg swelling Time Seen by Provider: 08/28/25 20:14 Source: patient Limitations: no limitations History of Present Illness ED Provider: Nicolasa Stover PA-C HPI narrative: 34-year-old male with a history of polysubstance abuse, including IV drug abuse, tobacco abuse, there is a known varicose veins, known fatty liver disease, known anasarca who presents with bilateral lower extremity swelling of unclear duration. Patient states he always has swelling of bilateral lower extremities to some degree, however it has increased in severity over the past 2 days. Overlying erythema bilaterally. Denies fever. Related Data Home Medications ?Medication ?Instructions ?Recorded ?Confirmed methadone 10 mg/mL oral 120 mg PO DAILY 09/13/24 06/07/25 concentrate (Methadone Intensol) albuterol sulfate 90 mcg/actuation 1 - 2 puff inhalation Q4-6H PRN 06/07/25 06/07/25 aerosol inhaler (Ventolin HFA) wheezing ferrous sulfate 325 mg (65 mg 325 mg PO Q OTHER DAY 06/07/25 06/07/25 iron) tablet furosemide 20 mg tablet 20 mg PO DAILY 06/07/25 06/07/25 gabapentin 100 mg capsule 200 mg PO TID 06/07/25 06/07/25 hydroxyzine pamoate 50 mg capsule 50 mg PO TID PRN Anxiety 06/07/25 06/07/25 sertraline 50 mg tablet 50 mg PO DAILY 06/07/25 06/07/25 trazodone 50 mg tablet 50 mg PO BEDTIME 06/07/25 06/07/25 Previous Rx's ?Medication ?Instructions ?Recorded apixaban 5 mg tablet (Eliquis) 5 mg PO BID 30 days #60 tabs 02/09/25 doxycycline monohydrate 100 mg 100 mg PO Q12H #8 caps 06/13/25 capsule prednisone 10 mg tablet See Taper PO DIRECTED #20 tabs 06/13/25 rifaximin 550 mg tablet (Xifaxan) 550 mg PO BID #180 tabs 06/13/25 albuterol sulfate 90 mcg/actuation 2 inh inhalation Q4-6H PRN 07/19/25 breath activated powder inhaler shortness of breath or wheezing #1 ea prednisone 10 mg tablet 10 mg PO BID #10 tabs 07/19/25 amoxicillin 875 mg-potassium 1 tab PO Q12H 7 days #14 tabs 08/22/25 clavulanate 125 mg tablet doxycycline hyclate 100 mg capsule 100 mg PO BID 7 days #14 caps 08/22/25 cephalexin 500 mg capsule 500 mg PO QID #27 caps 08/28/25 sulfamethoxazole 800 1 tab PO Q12H #13 tabs 08/28/25 mg-trimethoprim 160 mg tablet (Bactrim DS) Allergies Allergy/AdvReac Type Severity Reaction Status Date / Time No Known Allergies (No Known Allergy Verified 08/28/25 15:35 Allergies*) Review of Systems Review of Systems: Yes all other systems are reviewed and are negative Constitutional: Constitutional: Denies fatigue and Denies fever(s) Cardiovascular: Cardiovascular: Reports leg ulcers and Reports leg edema Integumentary/Breasts: Skin/Breast: Reports erythema, Reports skin swelling and Reports sores Endocrine: Endocrine: Denies fatigue PMFSH Past Medical History Attestation statement: The following information was validated with the patient. Medical History Hepatic cirrhosis Mitral valve vegetation Heart failure with mildly reduced ejection fraction Prosthetic valve malfunction Active intravenous drug use Pulmonary embolism without acute cor pulmonale Tricuspid valve vegetation Endocarditis Hypersensitivity pneumonitis Hemoptysis Rhabdomyolysis Anemia LUCERO (acute kidney injury) Polysubstance abuse Opioid use disorder Opioid use disorder, severe, dependence Substance abuse MSSA bacteremia Bacteremia Bacteremia Right heart failure Steatosis, liver Tricuspid valve stenosis Anasarca HCV (hepatitis C virus) Endocarditis Pulmonary embolism Surgical History S/P tricuspid valve replacement History of tricuspid valve replacement with bioprosthetic valve Social History Social History Household Members: Other Household Members Other:: detention Housing: Homeless Do you presently have visiting nurse or other home services: No Alcohol intake: former Patient Tobacco Use Status: Current everyday Tobacco user Tobacco use type: Cigarette Cigarette Packs Per Day: 0.5 Cigarettes Per Day: 10.0 Years Smoked: 10 Smoked in Last 30 Days: Yes Second Hand Smoke Exposure: No Use of substances other than those prescribed or required for medical reasons: No Substance Use Type: IV Drugs Advance Directives: Yes Advance Directives on File: Yes Advance Directives Date on File: 04/16/21 Do you have a plan to hurt others: No Plan service: No Current occupational status: unemployed Physical Exam ED Vital Signs: Vital Signs - 24 hr 08/28/25 15:29 08/28/25 19:23 08/28/25 19:27 Temperature 97.8 F 99.5 F 97.8 F Pulse Rate 121 H 93 91 Respiratory Rate 22 H 18 20 Blood Pressure 113/77 109/79 123/73 Pulse Oximetry 92 94 91 L Oxygen Delivery Method Room Air Room Air BMI result Body Mass Index 30.1 Const Other: Alert Orientation/consciousness: patient oriented x3 Resp Effort & Inspection: normal respiratory effort Cardio Other: Bilateral pitting edema, anasarca Skin Other: Bilateral lower extremities are hyperpigmented, with multiple varicosities, the skin is shiny, overlying erythema and warmth that spans from the ankle to mid anthony bilaterally, some chronic ulcerations noted, no purulence from any site Neuro General: patient oriented x3, gait normal, no focal motor deficits and CN's II-XI intact bilaterally Psych Other: Cooperative Course Course Course Narrative: Rapid medical examination performed in triage by Estelita Barber PA-C: Patient is a 34 year old assigned male at presenting to the emergency department with right lower leg pain and swelling. Patient states that he has a history of varicose veins and over the last 2 days his right lower leg has become much more swollen and painful. Detailed physical exam and review of systems are deferred to the primary school teacher librarian. Imaging ordered. Patient placed back in the waiting room pending room availability and results. Medications Administered Discontinued Medications Generic Name Dose Route Start Last Admin Trade Name Denzelq PRN Reason Stop Dose Admin Cephalexin HCl 500 mg 08/28/25 20:23 08/28/25 21:03 Cephalexin 500 Mg Capsule PO 08/28/25 20:24 500 mg ONCE ONE Administration Trimethoprim/Sulfamethoxazole 1 tab 08/28/25 20:23 08/28/25 21:03 Sulfamethox/Trimeth 800/160 Tablet PO 08/28/25 20:24 1 tab ONCE ONE Administration Medical Decision Making Medical Decision Making [facility] Narrative: 34-year-old male with a history of polysubstance abuse, including IV drug abuse, tobacco abuse, there is a known varicose veins, known fatty liver disease, known anasarca who presents with bilateral lower extremity swelling of unclear duration. Patient states he always has swelling of bilateral lower extremities to some degree, however it has increased in severity over the past 2 days. Overlying erythema bilaterally. Denies fever. Problem: Polysubstance abuse, known fatty liver disease known anasarca known varicose veins History: Per patient I have considered the following differential diagnoses: Thrombophlebitis, DVT, cellulitis, new heart failure, worsening liver dysfunction, Mauricio cyst Plan: Doppler studies ordered from triage, there was no DVT, there was no Mauricio cyst, the patient has chronic varicosities and anasarca, he does have overlying warmth and erythema suggestive of cellulitis. Unclear what his baseline is as the patient is not the best historian. I wanted to obtain labs and inflammatory markers, however the patient is currently in a [facility], he needs to get back before they will not let him return for the evening. Empirically treating him. I have independently reviewed the following tests: DVT studies:Findings: The visualized deep veins are fully compressible with normal flow. Dilated and tortuous superficial veins. No popliteal cyst. Impression: No deep vein thrombosis. Differential Diagnosis Differential Diagnoses: The differential diagnosis associated with the presentation includes See medical decision-making Admission/Observation Consideration of admission/observation: Escalation of care including admission/observation considered Not applicable Radiology Impression Discussion of test interpretation with radiology: I have reviewed the radiologist's reading. Discharge Plan Discharge Clinical Impression: Bilateral cellulitis of lower leg Patient Disposition: Home, Self-Care Instructions: Cellulitis (ED) Additional Instructions: Ultrasound of the legs was negative for a clot. It is concerning you have cellulitis. We are empirically treating you, you were unable to stay for lab studies. Complete the course of antibiotics you are currently taking for your pneumonia. You are being placed on 2 different antibiotics, so that you have appropriate antibiotic coverage for the suspect cellulitis. Take the Bactrim as directed, take the Cefalexin soon as directed. Follow up with primary care as needed Prescriptions: New sulfamethoxazole-trimethoprim [Bactrim DS] 800-160 mg tablet 1 tab PO Q12H Qty: 13 0RF cephalexin 500 mg capsule 500 mg PO QID Qty: 27 0RF No Action methadone [Methadone Intensol] 10 mg/mL Concentrate 120 mg PO DAILY Eliquis 5 mg tablet 5 mg PO BID 30 Days Qty: 60 0RF trazodone 50 mg tablet 50 mg PO BEDTIME hydroxyzine pamoate 50 mg capsule 50 mg PO TID PRN (Reason: Anxiety) ferrous sulfate 325 mg (65 mg iron) tablet 325 mg PO Q OTHER DAY furosemide 20 mg tablet 20 mg PO DAILY gabapentin 100 mg capsule 200 mg PO TID albuterol sulfate [Ventolin HFA] 90 mcg/actuation HFA aerosol inhaler 1 - 2 puff inhalation Q4-6H PRN (Reason: wheezing) sertraline 50 mg tablet 50 mg PO DAILY doxycycline monohydrate 100 mg Capsule 100 mg PO Q12H Qty: 8 0RF Xifaxan 550 mg Tablet 550 mg PO BID Qty: 180 0RF prednisone 10 mg tablet See Taper PO DIRECTED Qty: 20 0RF Taper: Prednisone 40 mg daily for 3 Days and 0 Hour 30 mg daily for 3 Days and 0 Hour 20 mg daily for 3 Days and 0 Hour 10 mg daily for 3 Days and 0 Hour Rx Instructions: see taper instructions amoxicillin-pot clavulanate 875-125 mg tablet 1 tab PO Q12H 7 Days Qty: 14 0RF doxycycline hyclate 100 mg capsule 100 mg PO BID 7 Days Qty: 14 0RF prednisone 10 mg tablet 10 mg PO BID Qty: 10 0RF albuterol sulfate 90 mcg/actuation aerosol powdr breath activated 2 inh inhalation Q4-6H PRN (Reason: shortness of breath or wheezing) Qty: 1 0RF Interventions: ED Discharge Assessment Last Done: 08/28/25 21:07 Print Language: Ukrainian
--- OUTSIDE RECORDS SUMMARY | 2025-08-28 19:18 | XMS_ITS | Encounter Summary ---
Author Organization [employer] Address [address] [facility] 7t [place] [address] Care Team Providers Care Nurse Practitioner Home Assessments Name Role Phone Nirali Lott Primary Care Provider [phone] Alba So NP Primary Care Provider [phone] Reason for Referral * Consultation (Routine) - Closed Specialty Diagnoses / Procedures Referred By Merle t Referred To Contact Hand Surgery Diagnoses Pain in finger of left hand Nirali Lott FNP [address] [place] [address] Phone: tel: fax: [facility] [address] [place] [address] Phone: tel: Referral ID Status Reason Start Date Expiration Date V isits Requested Visits Authorized [id number] Closed Specialty Services Required 12/23/2023 12/22/2024 6 6 Encounter Details Date Type Department Care Team (Late st Contact Info) Description 12/23/2023 Orders Only [facility] P[facility]S [address] [place] [address] Nirali Lott FNP [address] [place] [address] Pain in finger of left hand (Primary [...] 2:00 PM EST Office Visit [facility] MEDICINE [address] [place] [address] Alba So NP [address] [place] [address] Scheduled Referrals Name Type Priority Associated Diagnoses [...] documented as of this encounter Care Teams Nurse Practitioner Home Assessments Relationship Specialty Start Date End Date Nirali Lott FNP [address] [place] [address] PCP - General Family Medicine 07/09/23 04/13/24 Alba So NP [address] [place] [address] PCP - General Family Medicine 04/14/24 documented as of this encounter
--- OUTSIDE RECORDS SUMMARY | 2025-08-28 19:18 | XMS_ITS | Encounter Summary ---
Author Organization [employer] Address [address] [facility] 7t [place] [address] Care Team Providers Care Aligner Typewriter Name Role Phone Alba So NP Primary Care Provider [phone] Encounter Details Date Type Department Care Team ([facility] st Contact Info) Description 07/20/2025 Results Follow-Up [facility] MEDICINE [address] [place] [address] Alba So NP [address] [place] [address] XR Chest 2 Views Social History Tobacco [...] [facility] [address] [place] [address] Alba So NP [address] [place] [address] documented as of this encounter Visit Diagnoses Not on filedocumented in this encounter Additional Health Concerns Assessment Noted Time PHQ-9 Depression Total Score: 18 024 11:56 AM EST documented as of this encounter Care Teams Aligner Typewriter Relationship Specialty Start Date End Date Alba So NP [address] [place] [address] PCP - General Family Medicine 04/14/24 documented as of this encounter
--- OUTSIDE RECORDS SUMMARY | 2025-08-28 19:18 | XMS_ITS | Encounter Summary ---
Author Organization [employer] Address 75 [facility] 7t [place] [address] Care Team Providers Care Label Designer Name Role Phone Nirali LottP Primary Care Provider [phone] Alba So NP Primary Care Provider [phone] Reason for Visit * Reason Onset Date Comments Hospital Follow-up 04/05/2024 Encounter Details Date Type Department Care Team ([facility] st Contact Info) Description 04/05/2024 Telephone [facility] MEDICINE [address] [place] [address] Nirali Lott FNP [address] [place] [address] Hospital Follow-up Social History Tobacco Use Types [...] from pt requesting a HDF appt. Hospital: [facility] Date of admission: 03/30 Discharge date: 04/01 Diagnosed: Chest Pain documented in this encounter Plan of Treatment Upcoming Encounters Date Type Department Care Team (Late st Contact Info) Description 09/25/2025 2:00 PM EST Office Visit [facility] MEDICINE [address] [place] [address] Alba So NP [address] [place] [address] documented as of this encounter Visit Diagnoses Not on filedocumented in this encounter Additional Health Concerns Assessment Noted Time PHQ-9 Depression Total Score: 0 06/03/20 10:05 AM EDT documented as of this encounter Care Teams Label Designer Relationship Specialty Start Date End Date Nirali Lott FNP [address] [place] [address] PCP - General Family Medicine 07/09/23 04/13/24 Alba So NP [address] [place] [address] PCP - General Family Medicine 04/14/24 documented as of this encounter
--- OUTSIDE RECORDS SUMMARY | 2025-08-28 19:18 | XMS_ITS | Encounter Summary ---
Author Organization [employer] Address [address] [facility] 7t [place] [address] Care Team Providers Care Power Tong Operator Name Role Phone Mack Jin WHITTEN Primary Care Provider Unavail able Nirali Lott Primary Care Provider [phone] Alba So NP Primary Care Provider [phone] Encounter Details Date Type Department Care Team ([facility] Contact Info) Description 06/08/2023 Orders Only [facility] CHC MED & PEDS [address] [place], [place] [phone] Nirali Lott FNP [address] [place] [address] Chronic hepatitis C without hepatic coma (CMS/HCC) [...] 09/25/2025 2:00 PM EST Office Visit [facility] MEDICINE [address] [place] [address] Alba So NP [address] [place] [address] documented as of this encounter Visit Diagnoses Diagnosis Chronic hepatitis C without hepatic coma (HCC)- Primary documented in this encounter Additional Health Concerns Assessment Noted Time PHQ-9 Depression Total Score: 0 06/03/20 10:05 AM EDT documented as of this encounter Care Teams Power Tong Operator Relationship Specialty Start Date End Date Jin Mack AGNP PCP - General Family Medicine 04/24/23 07/08/23 Nirali Lott FNP [address] [place] [address] PCP - General Family Medicine 07/09/23 04/13/24 Alba So NP [address] [place] [address] PCP - General Family Medicine 04/14/24 documented as of this encounter
--- OUTSIDE RECORDS SUMMARY | 2025-08-28 19:18 | XMS_ITS | Encounter Summary ---
Author Organization [employer] Address 75 [facility] 7t [place] [address] Care Team Providers Care Safe Deposit Clerk Name Role Phone Alba So NP Primary Care Provider [phone] Encounter Details Date Type Department Care Team (Late st Contact Info) Description 07/07/2025 Results Follow-Up [facility] MEDICINE [address] [place] [address] Alba So NP [address] [place] [address] CBC auto differential, Complete Blood Count Manual [...] Description 09/25/2025 2:00 PM EST Office Visit [facility] MEDICINE [address] [place] [address] Alba So NP [address] [place] [address] documented as of this encounter Visit Diagnoses Not on filedocumented in this encounter Additional Health Concerns Assessment Noted Time PHQ-9 Depression Total Score: 18 024 11:56 AM EST documented as of this encounter Care Teams Safe Deposit Clerk Relationship Specialty Start Date End Date Alba So NP [address] [place] [address] PCP - General Family Medicine 04/14/24 documented as of this encounter
--- OUTSIDE RECORDS SUMMARY | 2025-08-28 19:18 | XMS_ITS | Encounter Summary ---
Author Organization [employer] Address [address] [facility] [address] 7[address] [place] [address] Care Team Providers Care Disability Manager Name Role Phone GrahamFabriziomarty Harris ENVIRONMENTAL INSPECTOR Primary Care Provider Madisyn Jin [place] Primary Care Provider Unavail Nirali Diaz ENVIRONMENTAL INSPECTOR Primary Care Provider [phone] Alba So NP Primary Care Provider [phone] Encounter Details Date Type Department Care Team (Late st Contact Info) Description 01/05/2023 Orders Only [facility] [address] [place] [address] Nohemi Greene FNP Social History Tobacco Use [...] empyema, recurrent bacteremia and endocarditis,was admitted to [facility] on 07/16/22 for evaluation of chest pain [...] mom and was in [place] and wasdischarged October 23, now lives at [...] Description 09/25/2025 2:00 PM EST Office Visit [facility] MED[facility] [address] [place] [address] Alba So NP [address] [place], [place] [phone] documented as of this encounter Procedures Procedure [...] EDT 04/13/2023 3:00 PM EDT Comment:Blood Narrative [facility] - 04/18/2023 5:00 PM EDT Blood Culture (Second) No growth after 5 days. Specimen Source: Blood [facility] Exter nal Provider LAB MICROBIOLOGY - GENERAL ORDERABLES Final Result Performing Organization Address [facility]/ZIP Co de Phone Number [facility] [address] [place] [address] [phone] * Blood Culture (First) (04/13/2023 2:20 PM EDT) Blood 04/13/2023 2:20 PM EDT 04/13/2023 3:00 PM EDT Comment:Blood Narrative [facility] - 04/18/2023 5:00 PM EDT Blood Culture (First) No growth after 5 days. Specimen Source: Blood [facility] Exter nal Provider LAB MICROBIOLOGY - GENERAL ORDERABLES Final Result Performing Organization Address [facility]/ZIP Co de Phone Number [facility] [address] [place] [phone] * (ABNORMAL) Urinalysis, Complete, with Reflex to Culture (03/16/2023 6:50 PM EDT) Color Urine Dark Yellow [facility] Appearance Urine Clear [facility] PH 6.5 5.0 - 9.0 [facility] Glucose Urine UA Negative Negative mg/dL [facility] Urine Blood Small (1+)(A) Negative [facility] Specific [place] - Urine 1.015 1.005 - 1.025 [facility] Urine Protein 100 (2+)(A) Neg-Trace mg/dL [facility] Urine Ketones Negative Negative mg/dL [facility] Nitrite Urine Positive(A) Negative [facility] Leukocyte Esterase Urine Small (1+)(A) Negative [facility] RBC Urine >20(A) 0 - 2 /HPF [facility] Urine WBC 6-10(A) 0 - 5 /HPF [facility] Urine Squamous Epithelial Cell 0-2 0 - 2 /HPF [facility] Urine Bacteria None Seen None Seen [facility] Hyaline Casts, Urine 0-2 0 - 2 /LPF [facility] 03/16/2023 6:50 PM EDT 03/16/2023 7:08 PM EDT Narrative [facility] - 03/16/2023 7:57 PM EDT Urine, Clean Catch us [facility] External Provider LAB URI NE ORDERABLES Final Result [facility] [address] [place] [phone] * (ABNORMAL) CBC auto differential (03/16/2023 5:18 PM EDT) White Blood Count 11.0(H) 4.8 - 10.8 X10*3/uL [facility] Red Blood Count 4.07(L) 4.60 - 5.80 X10*6/uL [facility] Hemoglobin 9.7(L) 14.0 - 18.0 g/dl [facility] Hematocrit 30.7(L) 42.0 - 52.0 % [facility] Mean Corpuscular Volume 75.4(L) 80.0 - 98.0 fL [facility] Mean Corpuscular Hemoglobin 23.8(L) 27.0 - 33.0 pg [facility] Mean Corpuscular HGB Conc 31.6 31.0 - 36.0 g/dl [facility] Red Cell Distribution Width 31.5(H) 11.0 - 16.0 % [facility] Platelet Count 597(H) 160 - 400 X10*3/uL [facility] Mean Platelet Volume 9.8 9.4 - 12.4 fL [facility] Neutrophils Percent Auto 60.7 45 - 73 % [facility] Imm Gran Pct Auto 2.0(H) 0.0 - 0.4 % [facility] Lymphocytes Percent Auto 24.7 20 - 40 % [facility] Monocytes Percent Auto 10.5 2 - 11 % [facility] Eosinophils Percent Auto 1.1 0 - 4 % [facility] Basophils Percent Auto 1.0 0 - 2 % [facility] NRBC Pct Auto 0.0 0.0 - 0.2 /100WBC [facility] Neutrophils Absolute Auto 6.7 2.0 - 8.3 x10*3/uL [facility] Imm Gran Abs Auto 0.22(H) 0.00 - 0.03 X10*3/uL [facility] Lymphocytes Absolute Auto 2.7 1.2 - 4.9 X10*3/uL [facility] Monocytes Absolute Auto 1.2 0.1 - 1.2 X10*3/uL [facility] Eosinophils Absolute Auto 0.1 0.0 - 0.4 X10*3/uL [facility] Basophils Absolute Auto 0.1 0.0 - 0.2 X10*3/uL [facility] NRBC Abs Auto 0.000 0.0 - 0.012 X10*3/uL [facility] 03/16/2023 5:18 PM EDT 03/16/2023 5:24 PM EDT us [facility] External Provider LAB BLO OD ORDERABLES Final Result [facility] [address] [place] [phone] * High Sensitivity Troponin I (03/16/2023 5:18 PM EDT) TROPONIN I HIGH SENSITIVITY 11.4 <3.5 - 35.0 ng/L [facility] Comment:The Coley high sens itivity Troponin-I results should beused in conjunction with other diagnostic information suchas ECG, clinical observations and information, and patientsymptoms to aid in the diagnosis of NH. 03/16/2023 5:18 PM EDT 03/16/2023 5:24 PM EDT [facility] External Provider LAB BLO OD ORDERABLES Final Result Performing Organization Address [facility] Co de Phone Number [facility] [address] [place] [phone] * (ABNORMAL) B Type Natriuretic Peptide (BNP) (03/16/2023 5:18 PM EDT) B Type Natriuretic Peptide 378(H) <100 pg/mL [facility] Comment:For those patients w ho are being treated with Natrecor(nesiritide, recombinant BNP), BNP testing should beperformed at least two hours post treatment in order toensure that only endogenous levels of BNP are detected. 03/16/2023 5:18 PM EDT 03/16/2023 5:24 PM EDT [facility] External Provider LAB BLO OD ORDERABLES Final Result Performing Organization Address [facility] Co de Phone Number [facility] [address] [place] [phone] * (ABNORMAL) Lipase (03/16/2023 5:18 PM EDT) Lipase 168(H) 8 - 78 U/L [facility] 03/16/2023 5:18 PM EDT 03/16/2023 5:24 PM EDT [facility] External Provider LAB BLO OD ORDERABLES Final Result Performing Organization Address [facility] Co de Phone Number [facility] [address] [place] [phone] * (ABNORMAL) Basic Metabolic Panel (03/16/2023 5:18 PM EDT) Sodium 139 135 - 145 mmol/L [facility] Potassium 3.0(L) 3.3 - 5.1 mmol/L [facility] Chloride 106 96 - 108 mmol/L [facility] Carbon Dioxide 20(L) 22 - 29 mmol/L [facility] Anion Gap 16 12 - 20 [facility] Urea Nitrogen (BUN) 8(L) 9 - 16 mg/dL [facility] Creatinine, Serum 0.74 0.5 - 1.4 mg/dL [facility] Creatinine Clr Calc Pharmacy 131.5 [facility] Comment:eGFR (calculated fro m the MDRD study equation) and eCrCl(calculated from the Cockcroft-Gault equation) are based ondifferent parameters and may not yield comparable results.If eCrCl result is absurd, please check patient'sheight/weight. Estimated Glomerular Filt Rate >60 [facility] Comment:NOTE: For -Am erican individuals, multiply the result by 1.210.Chronic Kidney Disease: Estimated GFR < 60 mL/min/1.82l6Bbgrsm Kidney Disease: Estimated GFR < 15 mL/min/1.73m2 Glucose 84 60 - 115 mg/dL [facility] Calcium 9.4 8.4 - 10.2 mg/dL [facility] 03/16/2023 5:18 PM EDT 03/16/2023 5:24 PM EDT us [facility] External Provider LAB BLO OD ORDERABLES Final Result [facility] [address] [place] [phone] * (ABNORMAL) Hepatic Function Panel (03/16/2023 5:18 PM EDT) Bilirubin, Total 5.9(H) 0.0 - 1.0 mg/dL [facility] Bilirubin, Direct 3.5(H) 0.0 - 0.5 mg/dL [facility] Aspartate Amino Transferase 19 5 - 37 U/L [facility] Alanine Aminotransferase 13 0 - 40 U/L [facility] Total Protein 7.7 6.5 - 8.0 g/dL [facility] Albumin Level 3.9 3.5 - 5.0 g/dL [facility] Alkaline Phosphatase 154(H) 39 - 117 U/L [facility] 03/16/2023 5:18 PM EDT 03/16/2023 5:24 PM EDT [facility] External Provider LAB BLO OD ORDERABLES Final Result Performing Organization Address [facility] Co de Phone Number [facility] [address] [place] [phone] * Lactic Acid (03/16/2023 5:18 PM EDT) Lactic Acid 1.7 0.5 - 2.0 mmol/L [facility] 03/16/2023 5:18 PM EDT 03/16/2023 5:24 PM EDT [facility] External Provider LAB BLO OD ORDERABLES Final Result Performing Organization Address [facility] Co de Phone Number [facility] [address] [place] [phone] documented in this encounter Visit Diagnoses Not on filedocumented in this encounter Care Teams Disability Manager Relationship Specialty Start Date End Date Megan Stevenson FNP PCP - General Family Medicine 03/27/22 04/23/23 Jin Mack AGNP PCP - General Family Medicine 04/24/23 07/08/23 Nirali Lott FNP [address] [place] [address] PCP - General Family Medicine 07/09/23 04/13/24 Alba So NP [address] [place] [phone] PCP - General Family Medicine 04/14/24 documented as of this encounter
--- OUTSIDE RECORDS SUMMARY | 2025-08-28 19:18 | XMS_ITS | Encounter Summary ---
Author Organization [employer] Address [address] [facility] 7t [place] [address] Care Team Providers Care Child & Adolescent Psychiatrist Name Role Phone Nirali LottP Primary Care Provider [phone] Alba So NP Primary Care Provider [phone] Reason for Visit * Reason Onset Date Comments Referral 10/16/2023 Encounter Details Date Type Department Care Team ([facility] st Contact Info) Description 10/16/2023 Telephone [facility] MEDICINE [address] [place] [address] Nirali Lott FNP [address] [place] [address] Referral Social History Tobacco Use Types Packs/Day [...] - 10/16/2023 10:22 AM EST Tc from [facility] never received referral. documented in this encounter Plan of Treatment Upcoming Encounters Date Type Department Care Team (Late st Contact Info) Description 09/25/2025 2:00 PM EST Office Visit [facility] MEDICINE [address] [place] [address] Alba So NP [address] [place] [address] documented as of this encounter Visit Diagnoses Not on filedocumented in this encounter Additional Health Concerns Assessment Noted Time PHQ-9 Depression Total Score: 0 06/03/20 23 10:05 AM EDT documented as of this encounter Care Teams Child & Adolescent Psychiatrist Relationship Specialty Start Date End Date Nirali Lott FNP [address] [place] [address] PCP - General Family Medicine 07/09/23 04/13/24 Alba So NP [address] [place] [address] PCP - General Family Medicine 04/14/24 documented as of this encounter
--- OUTSIDE RECORDS SUMMARY | 2025-08-28 19:18 | XMS_ITS | Clinical Summary ---
Author Organization [facility] Address [address] [place] [phone] Phone Care Team Providers Care Bingo Checker Name Role Phone Pcp, Unknown Primary Care [...] patient's age to complete this topic IPV VACCINES Aged Out No longer eligi ble [...] EDT) SODIUM 140 133 - 146 mmol/L [facility] POTASSIUM 4.2 3.3 - 5.1 mmol/L [facility] CHLORIDE 109(H) 96 - 108 mmol/L [facility] CO2 19(L) 21 - 35 mmol/L [facility] BUN 10 6 - 19 mg/dL [facility] CREATININE 0.80 0.5 - 1.5 mg/dL [facility] GLUCOSE 67(L) 70 - 99 mg/dL [facility] ALBUMIN 3.7(L) 3.9 - 4.8 g/dL [facility] TOTAL PROTEIN 6.7 6.5 - 8.0 g/dL [facility] CALCIUM 8.8 8.4 - 10.3 mg/dL [facility] ALKALINE PHOSPHATASE 137(H) 39 - 117 U/L [facility] TOTAL BILIRUBIN 1.3(H) 0.0 - 1.2 mg/dL [facility] AST 13 0 - 37 U/L [facility] ALT 6 0 - 40 U/L [facility] GLOBULIN 3.0 1 - 4.8 g/dL [facility] EGFR 119 >59 mL/min/1.7 3m2 [facility] Comment:Estimated glomerular filtration rate calculated using the CKD-EPI refit equation. ANION GAP 16 10 - 20 mmol/L [facility] Blood 04/13/2023 6:42 AM EDT 04/13/2023 11:39 AM EDT us Martinez Rendon MD LAB BLOOD BKR ORDERABLES Final R esult [address] [address] from Last 3 Months or Most Recently Relevant to Health Maintenance Insurance C3 ACO C3 ACO C3 ACO C3 ACO C3 ACO C3 ACO Care Teams Bingo Checker Relationship Specialty Start Date End Date Pcp, Unknown PCP - General 12/06/19 Additional Source Comments The information contained in this document represents components of the legal health record. It is not the complete legal health record.[facility]
--- OUTSIDE RECORDS SUMMARY | 2025-08-28 19:18 | XMS_ITS | Encounter Summary ---
Author Organization [facility] Address [address] [facility] [address] [place] [address] Phone Care Team Providers Care Bookkeepers Supervisor Name Role Phone Pcp, Unknown Primary Care Provider Unavailabl e Encounter Details Date Type Department Care Team (Late st Contact Info) Description 02/14/2020 Transcribe Orders [facility] Specimen Processing [address] [place] [address] Donell Villalobos, DO [address] [facility] [place] [address] [place] [address] [email or web address] Encounter for health [...] ALKALINE PHOSPHATASE 138(H) 39 - 117 U/L [facility] TOTAL BILIRUBIN 0.5 0.0 - 1.2 mg/dL [facility] DIRECT BILIRUBIN 0.2 0 - 0.3 mg/dL [facility] Bilirubin (Indirect) 0.3 0 - 1.5 mg/dL [facility] AST 114(H) 0 - 37 U/L [facility] ALT 235(H) 0 - 40 U/L [facility] TOTAL PROTEIN 6.8 6.5 - 8.0 g/dL [facility] ALBUMIN 4.1 3.9 - 4.8 g/dL [facility] GLOBULIN 2.7 1 - 4.8 g/dL [facility] A/G Ratio 1.52 1.00 - 4.80 RATIO [facility] Blood 02/15/2020 10:0 4 AM EDT 02/15/2020 11:32 AM EDT us Donell A Bigda DO LAB BLOOD BKR ORDERABLES Final R esult Performing Organization Address City/State/[facility] Co de Phone Number [facility] [address] [place] [address] documented in this encounter Visit Diagnoses Diagnosis Encounter for health examination of prisoner- Primary documented in this encounter Additional Health Concerns Infection Onset Date Last Indicated Resolved Time CoV-Risk 03/27/2023 03/27/2023 04/07/2023 1:22 AM EDT documented as of this encounter Care Teams Bookkeepers Supervisor Relationship Specialty Start Date End Date Pcp, Unknown PCP - General 12/06/19 documented as of this encounter Additional Source Comments The information contained in this document represents components of the legal health record. It is not the complete legal health record.[facility]
--- OUTSIDE RECORDS SUMMARY | 2025-08-28 19:18 | XMS_ITS | Encounter Summary ---
Author Organization [facility] Address [address] [place] [address] Phone Care Team Providers Care Insurance Claim Auditor Name Role Phone Pcp, Unknown Primary Care Provider Unavailabl e Encounter Details Date Type Department Care Team (Late st Contact Info) Description 04/08/2023 Transcribe Orders [facility] Specimen Processing [address] [place] [address] Martinez Rendon MD [address] [facility], [address], [address] [place] [address] [email or web address] Congestive heart failure, unspecified HF chronicity, unspecified [...] 7:23 PM EDT Aisha Zelaya, RN * [place]geon Suicide Severity Rating Scale (Screener/Recent Self-Report) Question [...] EDT) SODIUM 140 133 - 146 mmol/L [facility] POTASSIUM 3.8 3.3 - 5.1 mmol/L [facility] CHLORIDE 108 96 - 108 mmol/L [facility] CO2 18(L) 21 - 35 mmol/L [facility] BUN 9 6 - 19 mg/dL [facility] CREATININE 0.70 0.5 - 1.5 mg/dL [facility] GLUCOSE 78 70 - 99 mg/dL [facility] ALBUMIN 3.7(L) 3.9 - 4.8 g/dL [facility] TOTAL PROTEIN 6.9 6.5 - 8.0 g/dL [facility] CALCIUM 8.9 8.4 - 10.3 mg/dL [facility] ALKALINE PHOSPHATASE 144(H) 39 - 117 U/L [facility] TOTAL BILIRUBIN 1.5(H) 0.0 - 1.2 mg/dL [facility] AST 13 0 - 37 U/L [facility] ALT 7 0 - 40 U/L [facility] GLOBULIN 3.2 1 - 4.8 g/dL [facility] EGFR >120 >59 mL/min/1.7 3m2 [facility] Comment:Estimated glomerular filtration rate calculated using the CKD-EPI refit equation. ANION GAP 18 10 - 20 mmol/L [facility] 04/08/2023 5:55 AM EDT 04/08/2023 8:22 AM EDT us Martinez Rendon MD LAB BLOOD BKR ORDERABLES Final R esult [address] [address] documented in this encounter Visit Diagnoses Diagnosis Congestive heart failure, unspecified HF chronicity, unspecified heart failure type- Primary documented in this encounter Care Teams Insurance Claim Auditor Relationship Specialty Start Date End Date Pcp, Unknown PCP - General 12/06/19 documented as of this encounter Additional Source Comments The information contained in this document represents components of the legal health record. It is not the complete legal health record.[facility]
--- OUTSIDE RECORDS SUMMARY | 2025-08-28 19:18 | XMS_ITS | Clinical Summary ---
Author Organization [facility] Address [address] [place] [address], [place] [address] Care Team Providers Care Emergency Dispatch Operator Name Role Phone Unavailable Primary Care Provider [...] age to complete this topic [place]
--- OUTSIDE RECORDS SUMMARY | 2025-08-28 19:18 | XMS_ITS | Encounter Summary ---
Author Organization [employer] Address [address] [facility] 7t [place] [address] Care Team Providers Care Antique Automobiles Repairer Name Role Phone Alba So GENEVA Primary Care Provider [phone] Encounter Details Date Type Department Care Team (Late st Contact Info) Description 04/26/2024 Orders Only [facility] MEDICINE [address] [place] [address] Varun Givens, PharmD 230 [place] [address] Social History Tobacco Use Types Packs/Day Years [...] 2:00 PM EST Office Visit [facility] [address] [place] [address] Alba So NP [address] [place] [address] documented as of this encounter Visit Diagnoses Not on filedocumented in this encounter Additional Health Concerns Assessment Noted Time PHQ-9 Depression Total Score: 0 06/03/20 23 10:05 AM EDT documented as of this encounter Care Teams [employer] Repairer Relationship Specialty Start Date End Date Alba So NP 230 [place] [address] PCP - General Family Medicine 04/14/24 documented as of this encounter
--- OUTSIDE RECORDS SUMMARY | 2025-08-28 19:18 | XMS_ITS | Encounter Summary ---
Author Organization [employer] Address [address] [facility] 7t [place] [address] Care Team Providers Care Manager Garden Name Role Phone Alba So GENEVA Primary Care Provider [phone] Encounter Details Date Type Department Care Team (Latest Contact Info) Description 08/28/2025 Travel Social History Tobacco Use Types Packs/Day [...] Description 09/25/2025 2:00 PM EST Office Visit [facility] MED[facility]INE [address] [place] [address] Alba So NP 230 [place] [address] documented as of this encounter Visit Diagnoses Not on filedocumented in this encounter Additional Health Concerns Assessment Noted Time PHQ-9 Depression Total Score: 18 024 11:56 AM EST documented as of this encounter Care Teams Manager Garden Relationship Specialty Start Date End Date Alba So NP 230 [place] [address] PCP - General Family Medicine 04/14/24 documented as of this encounter
--- OUTSIDE RECORDS SUMMARY | 2025-08-28 19:18 | XMS_ITS | Encounter Summary ---
Author Organization [employer] Address [address] [facility] 7t [place] [address] Care Team Providers Care Quality Control Director Name Role Phone Nirali LottP Primary Care Provider [phone] Alba So NP Primary Care Provider [phone] Reason for Visit * Reason Onset Date Comments PT1 08/05/2023 Encounter Details Date Type Department Care Team ([facility] st Contact Info) Description 08/05/2023 Telephone [facility] MEDICINE [address] [place] [address] Nirali Lott FNP [address] [place], [place] [phone] PT1 Social History Tobacco Use Types Packs/Day [...] 08/05/2023 1:12 PM EDT PT-1 Request Number [id number] is Pending * Telephone Encounter - Sage Telles - 08/05/2023 12:36 PM EDT Tc alanna Manley with [facility] Partner requesting a PT1: Name of facility: [facility] Specialty: Consult possible liver transplant Location: [address] [place] [address] Date: 08/12/2023 Time: 11:00 am fax: n/a wheelchair: no Aerospace Manager: no All future appt's documented in this encounter Plan of Treatment Upcoming Encounters Date Type Department Care Team (Late st Contact Info) Description 09/25/2025 2:00 PM EST Office Visit [facility] MEDICINE [address] [place] [address] Alba So NP [address] [place] [address] documented as of this encounter Visit Diagnoses Not on filedocumented in this encounter Additional Health Concerns Assessment Noted Time PHQ-9 Depression Total Score: 0 06/03/20 10:05 AM EDT documented as of this encounter Care Teams Quality Control Director Relationship Specialty Start Date End Date Nirali Lott FNP [address] [place] [address] PCP - General Family Medicine 07/09/23 04/13/24 Alba So NP [address] [place] [address] PCP - General Family Medicine 04/14/24 documented as of this encounter
--- OUTSIDE RECORDS SUMMARY | 2025-08-28 19:18 | XMS_ITS | Encounter Summary ---
Author Organization [facility] Address [address] [place] [phone] Phone Care Team Providers Care Health Information Provider Name Role Phone Pcp, Unknown Primary Care Provider Unavailabl e Encounter Details Date Type Department Care Team (Late st Contact Info) Description 10/20/2023 Transcribe Orders Virtual Department 30 [place] [address] Lucy Best PA [address] [place], [place] [phone] [email or web address] Anemia, unspecified type (Primary Dx) Social History [...] Primary documented in this encounter Care Teams Health Information Provider Relationship Specialty Start Date End Date Pcp, Unknown PCP - General 12/06/19 documented as of this encounter Additional Source Comments The information contained in this document represents components of the legal health record. It is not the complete legal health record.[facility]
--- OUTSIDE RECORDS SUMMARY | 2025-08-28 19:18 | XMS_ITS | Encounter Summary ---
Author Organization [facility] Address [address] [address] [address] [place] [address] Phone Care Team Providers Care Multimedia Services Manager Name Role Phone Pcp, Unknown Primary Care Provider Unavailabl e Encounter Details Date Type Department Care Team (Late st Contact Info) Description 10/28/2023 Procedure Pass [facility] Endoscopy Admitting Dept Virtual Department [address] [place] [address] Social History Tobacco Use Types Packs/Day Years [...] on filedocumented in this encounter Care Teams Multimedia Services Manager Relationship Specialty Start Date End Date Pcp, Unknown PCP - General 12/06/19 documented as of this encounter Additional Source Comments The information contained in this document represents components of the legal health record. It is not the complete legal health record.[facility]
--- OUTSIDE RECORDS SUMMARY | 2025-08-28 19:18 | XMS_ITS | Encounter Summary ---
Author Organization [employer] Address [address] [facility] 7t [place] [address] Care Team Providers Care Sheet Pile Hammer Operator Name Role Phone Alba So NP Primary Care Provider [phone] Encounter Details Date Type Department Care Team (Late st Contact Info) Description 12/21/2024 Orders Only [facility] MEDICINE 230 [place] [address] Alba So NP [address] [place] [address] Social History Tobacco Use Types Packs/Day Years [...] EST Office Visit [facility] MEDICINE [address] [place] [address] Alba So NP 230 [place] [address] documented as of this encounter Visit Diagnoses Not on filedocumented in this encounter Additional Health Concerns Assessment Noted Time PHQ-9 Depression Total Score: 18 024 11:56 AM EST documented as of this encounter Care Teams Sheet Pile Hammer Operator Relationship Specialty Start Date End Date Alba So NP [address] [place] [address] PCP - General Family Medicine 04/14/24 documented as of this encounter
--- OUTSIDE RECORDS SUMMARY | 2025-08-28 19:18 | XMS_ITS | Encounter Summary ---
Author Organization [facility] Address [address] [facility] [facility] [address] [place] [address] Phone Care Team Providers Care Glass Technologist Name Role Phone Pcp, Unknown Primary Care Provider Unavailabl e Encounter Details Date Type Department Care Team (Late st Contact Info) Description 09/16/2023 Procedure Pass [facility] Endoscopy Admitting Dept Virtual Department 30 [place] [address] Social History Tobacco Use Types Packs/Day Years [...] on filedocumented in this encounter Care Teams Glass Technologist Relationship Specialty Start Date End Date Pcp, Unknown PCP - General 12/06/19 documented as of this encounter Additional Source Comments The information contained in this document represents components of the legal health record. It is not the complete legal health record.[facility]
--- OUTSIDE RECORDS SUMMARY | 2025-08-28 19:18 | XMS_ITS | Encounter Summary ---
Author Organization [employer] Address [address] [facility] 7t [place] [address] Care Team Providers Care Telecommunication Equipment Repairer Name Role Phone Nirali LottP Primary Care Provider [phone] Alba So NP Primary Care Provider [phone] Reason for Visit * Reason Onset Date Comments PT1 10/02/2023 Encounter Details Date Type Department Care Team ([facility] st Contact Info) Description 10/02/2023 Telephone [facility] MEDICINE [address] [place] [address] Nirali Lott FNP [address] [place], [place] [phone] PT1 Social History Tobacco Use Types Packs/Day [...] 10/02/2023 11:00 AM EST PT-1 Request Number [id number] is Pending * Telephone Encounter - Christine Mak - 10/02/2023 10:32 AM EST Tc alanna Cruz with [facility] requesting PT1 transportation. Date: 10/20/2022 Time: 10:15 Visits: 12 a year Address: [address] [place] [address] [facility] Chair: n/a Assistant Center Manager Needed: n/a documented in this encounter Plan of Treatment Upcoming Encounters Date Type Department Care Team (Late st Contact Info) Description 09/25/2025 2:00 PM EST Office Visit [facility] MEDICINE [address] [place] [address] Alba So NP [address] [place] [address] documented as of this encounter Visit Diagnoses Not on filedocumented in this encounter Additional Health Concerns Assessment Noted Time PHQ-9 Depression Total Score: 0 06/03/20 23 10:05 AM EDT documented as of this encounter Care Teams Telecommunication Equipment Repairer Relationship Specialty Start Date End Date Nirali Lott FNP [address] [place] [address] PCP - General Family Medicine 07/09/23 04/13/24 Alba So NP [address] [place] [address] PCP - General Family Medicine 04/14/24 documented as of this encounter
--- OUTSIDE RECORDS SUMMARY | 2025-08-28 19:18 | XMS_ITS | Encounter Summary ---
Author Organization [employer] Address [address] 7[address] [place] [address] Care Team Providers Care Breaker Machine Operator Name Role Phone Nirali Lott Primary Care Provider [phone] Alba So NP Primary Care Provider [phone] Encounter Details Date Type Department Care Team (Late st Contact Info) Description 10/27/2023 Orders Only [facility] [address] [place] [address] Nirali Lott FNP [address] [place] [address] Infective endocarditis of tricuspid valve (Primary Dx) [...] 2:00 PM EST Office Visit [facility] 230 [place], [place] [phone] Alba So NP 230 [place] [address] documented as of this encounter Procedures Procedure Name Priority Date/Time Associated Diagnosis Comments CT LIVER 3 PHASE Routine 10/27/2023 4:35 PM EST documented in this encounter Results * CT liver 3 phase (10/27/2023 4:35 PM EST) Anatomical Region Laterality Modality Liver Computed Tomogra phy 10/27/2023 4:35 PM EST Narrative 11/02/2023 11:06 AM EST [address] [address] [address] Scan Report Signed Patient: Norberto Marquez MR#: [id number] : 1990 Acct:[id number] Age/Sex: 33 / M ADM Date: 10/27/23 Loc: HO.CT Attending Dr: Randa Chisholm MD Ordering Physician: Randa Chisholm MD Date of Service: 10/27/23 Procedure(s): CT liver 3 phase Accession Number(s): [id number] cc: Randa Chisholm MD; [facility] EXAMINATION: CT ABDOMEN without and WITH [...] in OV> 11/02/23 1101 DD/ 1635 TD/TT: Produce Wrapper: SS Procedure Note Donotuseinterpreter, Image - 11/03/[address] [place] [address] [address] Scan Report Signed Patient: Zully Marquez#: [id number] : 1990Acct:[id number] Age/Sex: 33 / MADM Date: 10/27/23 Loc: HO.CT Attending Dr: Randa Chisholm MD Ordering Physician: Randa Chisholm MD Date of Service: 10/27/23 Procedure(s): CT liver 3 phase Accession Number(s): [id number] cc: Randa Chisholm MD; [facility] EXAMINATION: CT ABDOMEN without and WITH [...] in OV> 11/02/23 1101 DD/ 1635 TD/TT: Produce Wrapper: [facility] External Provider IMG CT PROCEDURES Final Result documented in this encounter Visit Diagnoses Diagnosis Infective endocarditis of tricuspid valve- Primary documented in this encounter Additional Health Concerns Assessment Noted Time PHQ-9 Depression Total Score: 0 06/03/20 10:05 AM EDT documented as of this encounter Care Teams Breaker Machine Operator Relationship Specialty Start Date End Date Nirali Lott FNP 230 [place] [address] PCP - General Family Medicine 07/09/23 04/13/24 Alba So NP [address] [place] [address] PCP - General Family Medicine 04/14/24 documented as of this encounter
--- OUTSIDE RECORDS SUMMARY | 2025-08-28 19:19 | XMS_ITS | Clinical Summary ---
Author Organization [employer] Address [address] [facility] [address] [place] [address] Care Team Providers Care [employer] Professor Name Role Phone Alba So GENEVA Primary Care Provider [phone] Allergies No known active allergies Medications * [...] and at bedtime for anxiety. 06/02/20 Active allopurinol (Zyloprim) 100 MG tablet Take [...] day for 10 days. 14.2 g 08/11/20 predniSONE (Deltasone) 20 MG tablet Take 1 tablet (20 mg) by mouth Once per day for 5 days. 5 tablet 08/13/20 doxycycline (Vibra-Tabs) 100 MG tablet Take 1 tablet (100 mg) by mouth 2 times daily for 10 days. Take with a full glass of water and do not lie down for at least 30 minutes after. 20 tablet 08/16/20 Active Problems Problem Noted Date Diagnosed Date Cellulitis of lower extremity 08/28/2025 Finger pain, left 08/11/2025 Assessment & Plan [...] treatment, ambulance called and expect called to [facility]. 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 03/16/23-04/15/23 (anticipated discharge date) Anemia, chronic disease 10/09/2022 Symptomatic anemia 10/09/2022 Overview (10/09/2022): Acute anemia related to tooth extractions on 10/01/22 while still on xarelto for anticoagulation. Taken to [place] ED, bleeding gums, not able to stop with pressure Hemoglobin 3 Received 1 prbc transfusion Transferred to [facility] for admission on 10/02/22. Received another transfusion Discharged 10/06/22 Ascites 07/21/2022 Bacteremia 07/21/2022 Overview (04/18/2023): Recurrent bacteremia and endocarditis found 03/04/23. Admitted. Left AMA on 03/14/23 Returned 03/15/23. Admitted again with plan to transfer to [facility], [facility], to continue antibiotics until 04/15 to finish [...] dependence (CMS/HCC) 06/27/2022 Overview (08/23/2024): Admitted to [facility] for rehab Treated w/ Methadone [address] [facility] 03/16/23-04/15/23 -[facility] 08/23/24 Assessment & Plan (08/23/2024 2:45 PM EST): Admitted to [facility] for rehab Treated w/ Methadone [address] [facility] 03/16/23-04/15/23 -[facility] to [facility] [...] 2020 Overview (10/09/2022): 07/16/22 - Presented to [facility] ED with hypotension, found to be in septic shock 07/20/22 - Left hospital AMA before completing IV antibiotics. Blood cultures positive for GBS and required pressor support when he arrived. 07/21/22 - Mother took Pt to [facility] ED since he left [facility]. Pt IV drug use while at ED. 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 I will place a referral to our [facility] hep c team. Resolved Problems Problem Noted Date Diagnosed Date Resolved Date Chest pain 10/17/2024 08/16/2025 Elevated troponin 10/17/2024 08/16/2025 Endocarditis 10/17/2024 08/16/2025 Encounters Date Type Department Care Team Description 08/28/2025 1:00 PM EST Office Visit [facility] [address] [address] Tami House MD Cellulitis of lower extremity, unspecified laterality (Primary Dx) 08/28/2025 Travel 08/22/2025 Orders Only GENERIC EXTERNAL DATA DEPARTMENT Provider, Generic External Data 08/18/2025 8:40 AM EDT [facility] [address] [address] Mikie Fagan MD Cellulitis of left lower extremity (Primary Dx) 08/18/2025 Travel 08/17/[address] [address] Humaira Bruno RN Hep C 08/16/2025 10:00 AM EDT Office Visit [address] [address] Sabas Junior MD Cellulitis of left lower extremity (Primary Dx); Ulcer of extremity due to chronic venous insufficiency (HCC) 08/16/2025 Travel 08/13/2025 Results Follow-Up [address] [address] Krystyna Vaughn MD XR Fingers 2+ Views Left 08/11/2025 2:20 PM EDT [facility] [address] [address] Krystyna Vaguhn MD Finger pain, left (Primary Dx); Varicose veins of left lower extremity with inflammation; Tenosynovitis of finger 08/11/2025 Orders Only [address] [address] Krystyna Vaughn MD 08/11/2025 Travel 08/09/[address] [address] Humaira Bruno RN hep C tx 08/07/2025 10:20 AM EDT Office Visit [address] [address] Isamar Adams MD Acute bronchitis, unspecified organism (Primary Dx) 08/07/[address] [address] Isamar Adams MD 08/07/2025 Travel 08/03/[address] [address] Alba So NP ER Follow-up 07/26/[address] [address] Humaira Bruno, NABEEL Hep C tx 07/25/[address] [address] Krystyna Vaughn MD DME L&C Compression stockings 07/25/[address] [address] Krystyna Vaughn MD RX Compresson stockings 07/24/[address] [address] Alba So NP Durable Medical Equipment 07/20/2025 Results Follow-Up [address] [address] Alba So NP XR Chest 2 Views 07/19/2025 10:00 AM EDT Office Visit [address] [address] Viviana Cruz FNP Hospital discharge follow-up (Primary Dx); Hemorrhage of varicose veins of lower extremity, bilateral; History of positive hepatitis C 07/19/2025 Orders Only [facility] External Provider, [facility] 07/19/2025 Travel 07/18/2025 9:20 AM EDT [facility] [address] [address] Nighat Galloway MD Hx pulmonary embolism (Primary Dx); Shortness of breath; Hx of heart failure 07/18/2025 Travel 07/17/2025 Telephone [facility] [address] [place] [address] Malika Garnett PharmD 07/15/2025 10:40 AM EDT Office Visit [facility] [address] [place] [address] Krystyna Vaughn MD Venous stasis dermatitis of both lower extremities (Primary Dx); Bleeding from varicose veins of left lower extremity 07/15/2025 Travel 07/11/2025 Patient Outreach [facility] [address] [place] [address] Alba So NP Pre-visit Planning (HDF- scheduled with the direct line and SDOH screening completed on 01/19/2025) 07/07/2025 Results Follow-Up [address] [address] Alba So NP CBC auto differential, Complete Blood Count Manual Diff, Prothrombin Time-INR, Additional followed-up results: 7 06/06/2025 Orders Only GENERIC EXTERNAL DATA DEPARTMENT Provider, Generic External Data 06/04/2025 Orders Only GENERIC EXTERNAL DATA DEPARTMENT Provider, Generic External Data 05/30/2025 Telephone [facility] [address] [place] [address] Leela Gamino RN from Last 3 Months [...] Mass Index 30.6 08/28/2025 12:59 PM EST Plan of Treatment Upcoming Encounters Date Type Department Care Team (Isabel st Contact Info) Description 09/25/2025 2:00 PM EST Office Visit [facility] [address] [place] [address] Alba So NP [address] [place], [place] [phone] Health Maintenance Due Date Last Done Comments [...] 10/18/2024 SDOH Screening 01/19/2026 01/19/2025 Tobacco Screening 08/28/2026 08/28/2025 DTaP/Tdap/Td Vaccines (2 - T d or [...] 08/22/2025 2:21 PM EST COVID-19 ID NOW ([email or web address]) Routine 08/22/2025 1:43 PM EST INFLUENZA A B2 ID NOW ([facility]G) Routine 08/22/2025 1:43 PM EST LACTIC ACID Routine 08/22/2025 1:42 PM EST COMPREHENSIVE METABOLIC PANEL Routine 08/22/2025 1:42 PM EST COMPLETE BLOOD COUNT MAN DIF Routine 08/22/2025 1:42 PM EST CBC WITH AUTO DIFFERENTIAL Routine 08/22/2025 1:42 PM EST BLOOD CULTURE (SECOND) Routine 1:42 PM EST BLOOD CULTURE (FIRST) Routine 08/22/2025 1:42 PM EST SLIDE REVIEW [...] organism POCT RAPID STREP A Routine 08/07/2025 9 :54 AM EDT Acute bronchitis, unspecified organism DRUG [...] PM EST Narrative 08/22/2025 3:10 PM EST [place] [address] [address] Scan Report Signed Patient: Norberto Marquez MR#: [id number] : 1990 Acct:[id number] Age/Sex: 34 / M ADM Date: 08/22/25 Loc: .ED Attending Dr: Ordering Physician: Norma Grant DO Date of Service: 08/22/25 Procedure(s): CT angio chest PE protocol Accession Number(s): [id number] cc: Norma Grant DO; [facility] Report Number: [id number]: Total DLP = 240.00 mGy-cm Reason for [...] 08/22/25 1507 DD/ 1421 TD/TT: 08/22/25 1439 Advertising Agent: MICHAEL Procedure Note Donotuseinterpreter, Image - 08/22/[address] [place] [address] [address] Scan Report Signed Patient: Zully Marquez#: [id number] : 1990Acct:[id number] Age/Sex: 34 / MADM Date: 08/22/25 Loc: .ED Attending Dr: Ordering Physician: Norma Grant DO Date of Service: 08/22/25 Procedure(s): CT angio chest PE protocol Accession Number(s): [id number] cc: Norma Grant DO; [facility] Report Number: [id number]: Total DLP = 240.00 mGy-cm Reason for [...] by: Monica Richmond MD 08/22/2025 03:07 PM [facility] Dictated By: Monica Richmond MD Signed By: <Electronically signed by Monica Richmond MD in OV> 08/22/25 1507 DD/ 1421 TD/TT: 08/22/25 1439 Advertising Agent: MICHAEL [facility] External Provider IMG CT PROCEDURES Final Result * Influenza A B2 ID NOW (Cheung) (08/22/2025 1:43 PM EST) Only the most recent of2 resultswithin the time period is included. IDNOW SERIAL# [id number] [facility] Influenza A Negative Negative [facility] Influenza B2 Negative Negative [facility] Influenza A B2 Note See Note [facility] Comment:The [facility]ung ID NOW In [...] 1:43 PM EST 08/22/2025 1:54 PM EST Generic External Data Provider LAB MICROBIOLOGY - GENERAL ORDERABLES Final Result [facility] [address] [place] [phone] * COVID-19 ID NOW (CHEUNG) (08/22/2025 1:43 PM EST) Only the most recent of2 resultswithin the time period is included. IDNOW SERIAL# [id number] [facility] COVID-19 TEST Negative Negative [facility] COVID-19 NOTE See Note [facility] Comment: Results are for the identification of SARS-CoV2 RNA. TheSARS-CoV2 RNA is generally detectable in respiratory samplesduring the acute phase of infection. Positive results areindicative of the presence of SARS-CoV-2 RNA; clinicalcorrelation with patient history and other diagnosticinformation is necessary to determine patient infectionstatus. Positive results do not rule out bacterial infectionor co- infection with other viruses.Testing facilities within the [place] and itsterritories are required to report all [...] use by authorized laboratories.Testing performed on the Promosome ID NOW utilizing NAAT. 08/22/2025 1:43 PM EST 08/22/2025 1:54 PM EST [employer] External Data Provider LAB MOLECULAR [place] [facility] ORDERABLES Final Result Performing Organization Address [facility] Co de Phone Number [facility] [address] [place] [phone] * Blood Culture (First) (08/22/2025 1:42 PM EST) Only the most recent of2 resultswithin the time period is included. Blood Venous blood specimen / Unknown 08/22/2025 1:42 PM EST 08/22/2025 1:53 PM EST Comment:Blood Narrative [facility] - 08/27/2025 3:53 PM EST Blood Culture (First) No growth after 5 days. Specimen Source: Blood Generic External Data Provider LAB MICROBIOLOGY - GENERAL ORDERABLES Final Result Performing Organization Address [facility]/ZIP Co de Phone Number [facility] [address] [place] [phone] * Blood Culture (Second) (08/22/2025 1:42 PM EST) Only the most recent of2 resultswithin the time period is included. Blood Venous blood specimen / Unknown 08/22/2025 1:42 PM EST 08/22/2025 1:57 PM EST Comment:Blood Narrative [facility] - 08/27/2025 3:57 PM EST Blood Culture (Second) No growth after 5 days. Specimen Source: Blood us Generic External Data Provider LAB MICROBIOLOGY - GENERAL ORDERABLES Final Result [facility] [address] [place] [phone] * (ABNORMAL) Complete Blood Count Manual Diff (08/22/2025 1:42 PM EST) White Blood Count 10.5 4.8 - 10.8 X10*3/uL [facility] Red Blood Count 5.28 4.60 - 5.80 X10*6/uL [facility] Hemoglobin 13.1(L) 14.0 - 18.0 g/dl [facility] Hematocrit 42.2 42.0 - 52.0 % [facility] Mean Corpuscular Volume 79.9(L) 80.0 - 98.0 fL [facility] Mean Corpuscular Hemoglobin 24.8(L) 27.0 - 33.0 pg [facility] Mean Corpuscular HGB Conc 31.0 31.0 - 36.0 g/dl [facility] Red Cell Distribution Width 22.8(H) 11.0 - 16.0 % [facility] Platelet Count 202 160 - 400 X10*3/uL [facility] Mean Platelet Volume 9.2(L) 9.4 - 12.4 fL [facility] NRBC Pct Auto 0.0 0.0 - 0.2 /100WBC [facility] NRBC Abs Auto 0.000 0.0 - 0.012 X10*3/uL [facility] Neutrophils % Manual 73 45 - 73 % [facility] Band Neutrophils Percent 5 3 - 5 % [facility] Lymphocytes Percent Manual 11(L) 20 - 40 % [facility] Atypical Lymphs Percent Manual 3 0 - 6 % [facility] Monocytes Percent Manual 4 2 - 11 % [facility] EOSINOPHILS % MANUAL 2 0 - 4 % [facility] Metamyelocytes % (Manual) 2 % [facility] NEUTROPHILS ABSOLUTE MANUAL 8.2 2.0 - 8.3 X10*3/uL [facility] LYMPHOCYTES ABSOLUTE MANUAL 1.2 1.2 - 4.9 X10*3/uL [facility] Atypical Lymph Absolute Manual 0.3 x10*3/uL [facility] MONOCYTES ABSOLUTE MANUAL 0.4 0.1 - 1.2 X10*3/uL [facility] EOSINOPHILS ABSOLUTE MANUAL 0.2 0.0 - 0.4 X10*3/uL [facility] Absolute Metamyelocytes 0.2 X10*3/uL [facility] Platelet Estimate [facility] Large Platelet [facility] Platelet Morphology Comment NOTED [facility] RBC Morphology NOTED [facility] Ovalocytes 1+ (5-14) /OIF [facility] 08/22/2025 1:42 PM EST 08/22/2025 1:53 PM EST us Generic External Data Provider LAB BLOOD ORDERAB LES Final Result [facility] [address] [place] [phone] * (ABNORMAL) CBC auto differential (08/22/2025 1:42 PM EST) Only the most recent of5 resultswithin the time period is included. White Blood Count 10.5 4.8 - 10.8 X10*3/uL [facility] Red Blood Count 5.28 4.60 - 5.80 X10*6/uL [facility] Hemoglobin 13.1(L) 14.0 - 18.0 g/dl [facility] Hematocrit 42.2 42.0 - 52.0 % [facility] Mean Corpuscular Volume 79.9(L) 80.0 - 98.0 fL [facility] Mean Corpuscular Hemoglobin 24.8(L) 27.0 - 33.0 pg [facility] Mean Corpuscular HGB Conc 31.0 31.0 - 36.0 g/dl [facility] Red Cell Distribution Width 22.8(H) 11.0 - 16.0 % [facility] Platelet Count 202 160 - 400 X10*3/uL [facility] Mean Platelet Volume 9.2(L) 9.4 - 12.4 fL [facility] Neutrophils Percent Auto 68.9 45 - 73 % [facility] Imm Gran Pct Auto 6.5(H) 0.0 - 0.4 % [facility] Lymphocytes Percent Auto 16.6(L) 20 - 40 % [facility] Monocytes Percent Auto 5.5 2 - 11 % [facility] Eosinophils Percent Auto 1.6 0 - 4 % [facility] Basophils Percent Auto 0.9 0 - 2 % [facility] NRBC Pct Auto 0.0 0.0 - 0.2 /100WBC [facility] Neutrophils Absolute Auto 7.3 2.0 - 8.3 x10*3/uL [facility] Imm Gran Abs Auto 0.68(H) 0.00 - 0.03 X10*3/uL [facility] Lymphocytes Absolute Auto 1.8 1.2 - 4.9 X10*3/uL [facility] Monocytes Absolute Auto 0.6 0.1 - 1.2 X10*3/uL [facility] Eosinophils Absolute Auto 0.2 0.0 - 0.4 X10*3/uL [facility] Basophils Absolute Auto 0.1 0.0 - 0.2 X10*3/uL [facility] NRBC Abs Auto 0.000 0.0 - 0.012 X10*3/uL [facility] 08/22/2025 1:42 PM EST 08/22/2025 1:53 PM EST us Generic External Data Provider LAB BLOOD ORDERAB LES Edited Result - Final Performing Organization Address [facility] Co de Phone Number [facility] [address] [place] [address] [phone] * Lactic Acid (08/22/2025 1:42 PM EST) Only the most recent of2 resultswithin the time period is included. Lactic Acid 1.5 0.5 - 2.0 mmol/L [facility] 08/22/2025 1:42 PM EST 08/22/2025 1:53 PM EST Generic External Data Provider LAB BLOOD ORDERAB LES Final Result Performing Organization Address [facility] de Phone Number [facility] [address] [place] [phone] * (ABNORMAL) Comprehensive Metabolic Panel (08/22/2025 1:42 PM EST) Only the most recent of3 resultswithin the time period is included. Sodium 140 135 - 145 mmol/L [facility] Potassium 4.5 3.3 - 5.1 mmol/L [facility] Chloride 107 96 - 108 mmol/L [facility] Carbon Dioxide 25 22 - 29 mmol/L [facility] Anion Gap 13 12 - 20 [facility] Urea Nitrogen (BUN) 29(H) 9 - 16 mg/dL [facility] Creatinine, Serum 0.96 0.5 - 1.4 mg/dL [facility] Creatinine Clr Calc Pharmacy 114.9 [facility] Comment:eGFR (calculated fro m the MDRD study equation) and eCrCl(calculated from the Cockcroft-Gault equation) are based ondifferent parameters and may not yield comparable results.If eCrCl result is absurd, please check patient'sheight/weight. Estimated Glomerular Filt Rate >60 [facility] Comment:Chronic Kidney Disea se: Estimated GFR < 60 mL/min/1.22b3Xnyyev Kidney Disease: Estimated GFR < 15 mL/min/1.73m2 Glucose 136(H) 60 - 115 mg/dL [facility] Calcium 9.4 8.4 - 10.2 mg/dL [facility] Bilirubin, Total 0.7 0.0 - 1.0 mg/dL [facility] Aspartate Amino Transferase 42(H) 5 - 37 U/L [facility] Alanine Aminotransferase 60(H) 0 - 40 U/L [facility] Total Protein 7.8 6.5 - 8.0 g/dL [facility] Albumin Level 4.1 3.5 - 5.0 g/dL [facility] Alkaline Phosphatase 212(H) 39 - 117 U/L [facility] 08/22/2025 1:42 PM EST 08/22/2025 1:53 PM EST us Generic External Data Provider LAB BLOOD ORDERAB LES Final Result Performing Organization Address [facility] de Phone Number [facility] [address] [place] [phone] * Slide Review (08/11/2025 3:17 PM EDT) Only the most recent of2 resultswithin the time period is included. Slide Review VERIFIED [facility] 08/11/2025 3:17 PM EDT 08/11/2025 4:07 PM EDT us Krystyna Vuaghn MD LAB BLOOD ORDERABLES Fin al Result Performing Organization Address [facility] Co de Phone Number [facility] [address] [place] [address] [phone] * (ABNORMAL) Hepatitis Panel, General (08/11/2025 3:17 PM EDT) Hepatitis A IgM Nonreactive Nonreactive [facility] Comment:IgM antibodies to DARDEN V not detected; does not exclude earlyacute or recovered HAV infection. ~Hepatitis B Surface Antibody REACTIVE Nonreactive [facility] Comment:REACTIVE: > 11.99 mI U/mL Hepatitis B Core Antibody Nonreactive Nonreactive [facility] Hepatitis C Antibody Reactive(A) Nonreactive [facility] Comment:Presumptive evidence of antibodies to HCV. Hepatitis B Surface Ag Negative Negative [facility] Blood 08/11/2025 3:17 PM EDT 08/11/2025 6:18 PM EDT Krystyna Vaughn MD LAB BLOOD ORDERABLES Fin al Result Performing Organization Address City/[facility]/ZIP Co de Phone Number [facility] [address] [place] [phone] * Sed Rate by Modified Adalidergren (08/11/2025 3:17 PM EDT) Erythrocyte Sedimentation Rate 9 0 - 15 MM/HR [facility] Comment:Patients with polycy themia and many hemoglobin abnormalitiesmay have depressed sed rates whereas patients with anemiamay have elevated sed rates. Blood Venous blood specimen / Unknown 08/11/2025 3:17 PM EDT 08/11/2025 4:07 PM EDT Krystyna Vaughn MD LAB BLOOD ORDERABLES Fin al Result Performing Organization Address [facility] Co de Phone Number [facility] [address] [place] [phone] * Rheumatoid Factor (08/11/2025 3:17 PM EDT) Rheumatoid Factor <13.0 <15.0 IU/mL [facility] Blood Venous blood specimen / Unknown 08/11/2025 3:17 PM EDT 08/11/2025 6:18 PM EDT Krystyna Vaughn MD LAB BLOOD ORDERABLES Fin al Result Performing Organization Address [facility] Co de Phone Number [facility] [address] [place] [phone] * (ABNORMAL) C-reactive Protein (08/11/2025 3:17 PM EDT) C Reactive Protein 6.24(H) < or = 0.50 mg/dL [facility] Blood Venous blood specimen / Unknown 08/11/2025 3:17 PM EDT 08/11/2025 6:18 PM EDT Krystyna Vaughn MD LAB BLOOD ORDERABLES Fin al Result [facility] [address] [place] [phone] * KRYSTYNA Screen,IFA, with Reflex to Titer and Pattern (08/11/2025 3:17 PM EDT) Anti Nuclear Antibody Screen NEGATIVE NEGATIVE [facility] Comment:KRYSTYNA IFA is a first [...] clinicallysuspected inflammatory myopathies.AC-0: NegativeInternational Consensus on KRYSTYNA Patterns(https://doi.org/10.1515/jdew-1511-5144)For additional information, please refer tohttp://education.[employer]/faq/PHR091(This link is being provided for informational/educational purposes only.)THIS TEST WAS PERFORMED AT:[facility] [place] [id number] DAVIS MD KRYSTYNA Titer TNP [facility] KRYSTYNA Pattern TNP [facility] KRYSTYNA Titer 2 TNP [facility] KRYSTYNA Pattern 2 TNP [facility] KRYSTYNA TITER 3 TNP [facility] KRYSTYNA PATTERN 3 DEP [facility] Blood Venous blood specimen / Unknown 08/11/2025 3:17 PM EDT 08/11/2025 6:18 PM EDT us Krystyna Vaughn MD LAB BLOOD ORDERABLES Fin al Result Performing Organization Address [facility] Co de Phone Number [facility] [address] [place] [phone] * (ABNORMAL) Uric acid (08/11/2025 3:17 PM EDT) Uric Acid 9.2(H) 3.4 - 7.0 mg/dL [facility] Blood Venous blood specimen / Unknown 08/11/2025 3:17 PM EDT 08/11/2025 6:18 PM EDT Krystyna Vaughn MD LAB BLOOD ORDERABLES Fin al Result Performing Organization Address [facility] Co de Phone Number [facility] [address] [place] [phone] * XR Fingers 2+ Views Left (08/11/2025 2:58 PM EDT) Anatomical Region Laterality Modality Upper Extremities, Fingers Left Radio graphic Imaging 08/11/2025 2:58 PM EDT Narrative 08/11/2025 3:06 PM EDT [address] [address] XRay Report Signed Patient: Norberto Marquez MR#: [id number] : 1990 Acct:[id number] Age/Sex: 34 / M ADM Date: 08/11/25 Loc: HO.HHCX Attending Dr: Krystyna Vaughn MD Ordering Physician: Krystyna Vaughn MD Date of Service: 08/11/25 Procedure(s): XR finger LT min 2V Accession Number(s): [id number] cc: Krystyna Vaughn MD Reason for Exam: [...] 08/11/25 1503 DD/ 1458 TD/TT: 08/11/25 1448 Advertising Agent: MICHAEL Procedure Note Donotuseinterpreter, Image - 08/11/[address] [address] XRay Report Signed Patient: Zully Marquez#: [id number] : 1990Acct:[id number] Age/Sex: 34 / MADM Date: 08/11/25 Loc: HO.HHCX Attending Dr: Krystyna Vaughn MD Ordering Physician: Krystyna Vaughn MD Date of Service: 08/11/25 Procedure(s): XR finger LT min 2V Accession Number(s): [id number] cc: Krystyna Vaughn MD Reason for Exam: [...] 08/11/25 1503 DD/ 1458 TD/TT: 08/11/25 1448 Advertising Agent: MICHAEL Krystyna Vaughn MD IMG XR PROCEDURES Final Result * POCT Rapid COVID Ag (08/07/2025 9:54 AM EDT) Only the most recent of2 resultswithin the time period is included. [facility] Rapid COVID Ag Negative Swab 08/07/2025 9:54 AM EDT Result [facility] Isamar Adams MD POINT OF CARE TEST ENTER/EDIT OR DERABLES Final Result * POCT rapid strep A manually resulted (08/07/2025 9:54 AM EDT) Only the most recent of2 resultswithin the time period is included. [facility] Rapid Strep A Screen Negative Negative, None Detected Swab 08/07/2025 9:54 AM EDT Result [facility] Isamar Adams MD POINT OF CARE TEST ENTER/EDIT OR DERABLES Final Result * (ABNORMAL) Drug Monitoring, Panel 1, Screen, Urine (07/19/2025 8:51 PM EDT) Only the most recent of3 resultswithin the time period is included. [facility] Opiate Screen Urine Not Detected Not Detect [facility] Comment:Opiate cut-off is 30 0 ng/mL.Positive results are unconfirmed and should not be used fornon-medical purposes. Barbiturates, Urine Not Detected Not Detect [facility] Comment:Barbiturate cut-off is 200 ng/mL.Positive results are unconfirmed and should not be used fornon-medical purposes. Phencyclidine Screen Urine Not Detected Not Detect [facility] Comment:Phencyclidine cut-of f is 25 ng/mL.Positive results are unconfirmed and should not be used fornon-medical purposes. Amphetamine Screen Urine Not Detected Not Detect [facility] Comment:Amphetamine cut-off is 1000 ng/mL.Positive results are unconfirmed and should not be used fornon-medical purposes. Benzodiazepines Screen Urine Not Detected Not Detect [facility] Comment:Benzodiazepine cut-o ff is 200 ng/mL.Positive results are unconfirmed and should not be used fornon-medical purposes. Cocaine Screen Urine Not Detected Not Detect [facility] Comment:Cocaine cut-off is 3 00 ng/mL.Positive results are unconfirmed and should not be used fornon-medical purposes. Cannabinoid Screen Urine Not Detected Not Detect [facility] Comment:Cannabinoid cut-off is 50 ng/mL.Positive results are unconfirmed and should not be used fornon-medical purposes. Methadone Screen, Urine Positive(A) Not Detect ng/mL [facility] Comment:Methadone cut-off is 300 ng/mL.Positive results are unconfirmed and should not be used fornon-medical purposes. FENTANYL URINE Not Detected Not Detect [facility] Comment:Fentanyl cut-off is 1 ng/mL.Positive results are unconfirmed and should not be used fornon-medical purposes. Oxycodone Urine Screen Not Detected Not Detect ng/mL [facility] Comment:Oxycodone cut-off is 100 ng/mL.Positive results are unconfirmed and should not be used fornon-medical purposes. Buprenorphine Screen Not Detected Not Detect ng/mL [facility] Comment:Buprenorphine cut-of f is 5 ng/mL.Positive results are unconfirmed and should not be used fornon-medical purposes. 07/19/2025 8:51 PM EDT 07/19/2025 8:52 PM EDT us Generic External Data Provider LAB URINE ORDERAB LES Final Result [facility] [address] [place] [phone] * XR Chest 2 Views (07/19/2025 6:24 PM EDT) Anatomical Region Laterality Modality Chest Radiographic Ladan ging 07/19/2025 6:24 PM EDT Narrative 07/19/2025 6:26 PM EDT [place] [address] XRay Report Signed Patient: Norberto Marquez MR#: [id number] : 1990 Acct:[id number] Age/Sex: 34 / M ADM Date: 07/19/25 Loc: HO.ED Attending Dr: Ordering Physician: Alana Carreon Date of Service: 07/19/25 Procedure(s): XR chest 2V Accession Number(s): [id number] cc: [facility]; Alana Carreon Reason for Exam: SOB [...] in OV> 07/19/251824 DD/ 23 TD/TT: 07/19/251823 Advertising Agent: Procedure Note Pieter, Jonathan - 07/19/[address] [address] XRay Report Signed Patient: Marcelo MarquezR#: [id number] : 1990Acct:[id number] Age/Sex: 34 / MADM Date: 07/19/25 Loc: HO.ED Attending Dr: Ordering Physician: Alana Carreon Date of Service: 07/19/25 Procedure(s): XR chest 2V Accession Number(s): [id number] cc: [facility]; Alana Carreon Reason for Exam: SOB [...] in OV> 07/19/251824 DD/ 23 TD/TT: 07/19/251823 Advertising Agent: [facility] External Provider IMG XR PROCEDURES Final Result * High Sensitivity Troponin I (07/19/2025 6:22 PM EDT) Only the most recent of3 resultswithin the time period is included. TROPONIN I HIGH SENSITIVITY 3.3 <3.5 - 35.0 ng/L [facility] Comment:The Cheung high sens itivity Troponin-I results should beused in conjunction with other diagnostic information suchas ECG, clinical observations and information, and patientsymptoms to aid in the diagnosis of GA. 07/19/2025 6:22 PM EDT 07/19/2025 6:27 PM EDT Generic External Data Provider LAB BLOOD ORDERAB LES Final Result [facility] [address] [place] [phone] * Ethanol (07/19/2025 6:22 PM EDT) Only the most recent of2 resultswithin the time period is included. ETHANOL (MG/DL) IN SER/PLAS <10 mg/dL [facility] Comment:Serum/plasma ethanol results are to be used formedical/treatment purposes only. 07/19/2025 6:22 PM EDT 07/19/2025 6:27 PM EDT Generic External Data Provider LAB BLOOD ORDERAB LES Final Result Performing Organization Address [facility] Co de Phone Number [facility] [address] [place] [phone] * NT-proBNP (07/19/2025 6:22 PM EDT) NT-proBNP 251.0 <300 pg/mL [facility] Comment:Reference Range:Age Group (years) NT-proBNP (pg/ml) InterpretationAll <300 Negative: HF unlikelyFor patients presenting to the ED with clinical suspicion ofnew onset or worsening HF, see below:18 to <50 >299.9 to <450.0 Grayzone: [id number] to 75 >299.9 to <900.0 other causes of>75 >299.9 to <1800.0 NT-proBNP [id number] to <50 >449.9 Positive: HF -46 >899.9>75 >1799.9Note: Elevated NT-proBNP levels should be interpreted inthe context of other clinical information. 07/19/2025 6:22 PM EDT 07/19/2025 6:27 PM EDT Generic External Data Provider LAB BLOOD ORDERAB LES Final Result Performing Organization Address [facility] Co de Phone Number [facility] [address] [place] [phone] * Magnesium (07/19/2025 6:22 PM EDT) Only the most recent of3 resultswithin the time period is included. Magnesium 1.6 1.6 - 2.6 mg/dL [facility] 07/19/2025 6:22 PM EDT 07/19/2025 6:27 PM EDT us Generic External Data Provider LAB BLOOD ORDERAB LES Final Result Performing Organization Address [facility]/ZIP Co de Phone Number [facility] [address] [place] [phone] * (ABNORMAL) Ammonia, Plasma (07/19/2025 6:22 PM EDT) Ammonia (P) 59(H) 13 - 55 umol/L [facility] 07/19/2025 6:22 PM EDT 07/19/2025 6:27 PM EDT us Generic External Data Provider LAB BLOOD ORDERAB LES Final Result Performing Organization Address [facility] Phone Number [facility] [address] [place] [phone] * (ABNORMAL) Hepatic Function Panel (07/19/2025 6:22 PM EDT) Bilirubin, Total 0.9 0.0 - 1.0 mg/dL [facility] Bilirubin, Direct 0.5 0.0 - 0.5 mg/dL [facility] Aspartate Amino Transferase 94(H) 5 - 37 U/L [facility] Alanine Aminotransferase 81(H) 0 - 40 U/L [facility] Total Protein 7.1 6.5 - 8.0 g/dL [facility] Albumin Level 4.0 3.5 - 5.0 g/dL [facility] Alkaline Phosphatase 273(H) 39 - 117 U/L [facility] 07/19/2025 6:22 PM EDT 07/19/2025 6:27 PM EDT Generic External Data Provider LAB BLOOD ORDERAB LES Final Result Performing Organization Address [facility] Co de Phone Number [facility] [address] [place] [phone] * (ABNORMAL) Basic Metabolic Panel (07/19/2025 6:22 PM EDT) Sodium 138 135 - 145 mmol/L [facility] Potassium 4.5 3.3 - 5.1 mmol/L [facility] Chloride 109(H) 96 - 108 mmol/L [facility] Carbon Dioxide 21(L) 22 - 29 mmol/L [facility] Anion Gap 13 12 - 20 [facility] Urea Nitrogen (BUN) 21(H) 9 - 16 mg/dL [facility] Creatinine, Serum 0.79 0.5 - 1.4 mg/dL [facility] Creatinine Clr Calc Pharmacy 126.2 [facility] Comment:eGFR (calculated fro m the MDRD study equation) and eCrCl(calculated from the Cockcroft-Gault equation) are based ondifferent parameters and may not yield comparable results.If eCrCl result is absurd, please check patient'sheight/weight. Estimated Glomerular Filt Rate >60 [facility] Comment:Chronic Kidney Disea se: Estimated GFR < 60 mL/min/1.28a3Huuwuq Kidney Disease: Estimated GFR < 15 mL/min/1.73m2 Glucose 98 60 - 115 mg/dL [facility] Calcium 9.6 8.4 - 10.2 mg/dL [facility] 07/19/2025 6:22 PM EDT 07/19/2025 6:27 PM EDT us Generic External Data Provider LAB BLOOD ORDERAB LES Final Result [facility] [address] [place] [phone] * Influenza B (ID NOW Rapid Molecular) (07/18/2025 12:57 PM EDT) Influenza B Negative Negative, Indeterminate [facility] Swab 07/18/2025 12:5 7 PM EDT Nighat Galloway MD POINT OF CARE TEST ENTER/E DIT ORDERABLES Final Result Performing Organization Address City/[facility]/ZIP Co de Phone Number [facility] [address] [place] [phone] * Influenza A (ID NOW Rapid Molecular) (07/18/2025 12:57 PM EDT) Influenza A Negative Negative, Indeterminate [facility] Swab 07/18/2025 12:5 7 PM EDT Nighat Galloway MD POINT OF CARE TEST ENTER/E DIT ORDERABLES Final Result Performing Organization Address [facility] Co de Phone Number [facility] [address] [place] [phone] * CT Head w/o Contrast (06/08/2025 10:44 AM EDT) Anatomical Region Laterality Modality Head, Neck Computed Tomogra phy 06/08/2025 10:4 4 AM EDT Narrative 06/08/2025 12:17 PM EDT [address] [address] [address] Scan Report Signed Patient: Norberto Marquez MR#: [id number] : 1990 Acct:[id number] Age/Sex: 34 / M ADM Date: 06/06/25 Loc: [facility] 471-[address]: David Altman MD Ordering Physician: David Altman MD Date of Service: 06/08/25 Procedure(s): CT head/brain wo IV con Accession Number(s): [id number] cc: [facility]; David Altman MD Report Number: [id number]: Total DLP = 1453.00 mGy-cm EXAMINATION: CT [...] 06/08/25 1215 DD/ 1044 TD/TT: 06/08/25 1158 Advertising Agent: Procedure Note Donotuseinterpreter, Image - 06/08/[address] [place] [address] [address] Scan Report Signed Patient: Zully Marquez#: [id number] : 1990Acct:[id number] Age/Sex: 34 / MADM Date: 06/06/25 Loc: [facility] 471-[address]: David Altman MD Ordering Physician: David Altman MD Date of Service: 06/08/25 Procedure(s): CT head/brain wo IV con Accession Number(s): [id number] cc: [facility]; David Altman MD Report Number: [id number]: Total DLP = 1453.00 mGy-cm EXAMINATION: CT [...] 06/08/25 1215 DD/ 1044 TD/TT: 06/08/25 1158 Advertising Agent: [facility] External Provider IMG CT PROCEDURES Final Result * CT Abdomen Pelvis w/o Contrast (06/07/2025 10:44 AM EDT) Anatomical Region Laterality Modality Body, Pelvis, Abdomen Computed T omography 06/07/2025 10:4 4 AM EDT Narrative 06/08/2025 12:28 PM EDT [place] [address] [address] Scan Report Signed Patient: Norberto Marquez MR#: [id number] : 1990 Acct:[id number] Age/Sex: 34 / M ADM Date: 06/06/25 Loc: [facility] 471-[address]: David Altman MD Ordering Physician: Allison Mejía Date of Service: 06/07/25 Procedure(s): CT abdomen pelvis wo IV con Accession Number(s): [id number] cc: Allison Mejía; [facility] Report Number: [id number]: Total DLP = 1453.00 mGy-cm EXAMINATION: CT [...] 06/08/25 1224 DD/ 1044 TD/TT: 06/08/25 1158 Advertising Agent: Procedure Note Donotuseinterpreter, Image - 06/08/[address] [place] [address] [address] Scan Report Signed Patient: Zully Marquez#: [id number] : 1990Acct:[id number] Age/Sex: 34 / MADM Date: 06/06/25 Loc: [facility] 471-[address]: David Altman MD [facility]ing [facility] Date of Service: 06/07/25 Procedure(s): CT abdomen pelvis wo IV con Accession Number(s): [id number] cc: [place] [facility]; [facility] Report Number: [id number]: Total DLP = 1453.00 mGy-cm EXAMINATION: CT [...] 06/08/25 1224 DD/ 1044 TD/TT: 06/08/25 1158 Advertising Agent: [facility] External Provider IMG CT PROCEDURES Final Result * [facility] Lower Extremity Venous Duplex Bilateral (06/07/2025 8:50 AM EDT) 06/07/2025 8:50 AM EDT Narrative [facility] - 06/07/2025 9:16 AM EDT [place] [address] Ultrasound Report Signed Patient: Norberto Marquez MR#: [id number] : 1990 Acct:[id number] Age/Sex: 34 / M ADM Date: 06/06/25 [facility]: David Altman MD Ordering Physician: Allison MejíaADRIEL Date of Service: 06/07/25 Procedure(s): US venous duplex LE Accession Number(s): [id number] cc: Allison Mejía [facility]; [facility] EXAMINATION: US TRIPLEX LOWER EXTREMITY, BILATERAL [...] OV> 06/07/25912 DD/ 0850 TD/TT: 06/07/25 0900 Advertising Agent: Procedure Note Donotuseinterpreter, Image - 06/07/2025 [place] [address] Ultrasound Report Signed Patient: Zully Marquez#: [id number] : 1990Acct:[id number] Age/Sex: 34 / MADM Date: 06/06/25 Loc: [facility]-[address]: David Altman MD Ordering Physician: [facility] Date of Service: 06/07/25 Procedure(s): US venous duplex LE BI Accession Number(s): [id number] [facility] EXAMINATION: US TRIPLEX LOWER EXTREMITY, BILATERAL [...] 06/07/25 0913 DD/ 0850 TD/TT: 06/07/25 0900 Advertising Agent: [facility] External Provider CV VASC ULAR PROCEDURES Final Result Performing Organization Address City/State/[facility] Co de Phone Number [facility] [address] [place] [address] * XR Tibia Fibula 2 Views Left (06/07/2025 7:15 AM EDT) Anatomical Region Laterality Modality Lower Extremities, Lower Leg Left Rad iographic Imaging 06/07/2025 7:15 AM EDT Narrative 06/07/2025 8:29 AM EDT [place] [address] XRay Report Signed Patient: Norberto Marquez MR#: [id number] : 1990 Acct:[id number] Age/Sex: 34 / M ADM Date: 06/06/25 [facility]: David Altman MD Ordering Physician: Allison Mejía Date of Service: 06/07/25 Procedure(s): XR tibia fibula LT 2V Accession Number(s): [id number] cc: Allison Mejía [facility]; [facility] EXAMINATION: XR TIBIA AND FIBULA, LEFT [...] OV> 06/07/25825 DD/ 0715 TD/TT: 06/07/25 0732 Advertising Agent: Procedure Note Donotuseinterpreter, Image - 06/07/[address] [address] XRay Report Signed Patient: Zully Marquez#: [id number] : 1990Acct:[id number] Age/Sex: 34 / MADM Date: 06/06/25 Loc: [facility]-[address]: David Altman MD Ordering Physician: Allison Mejía Date of Service: 06/07/25 Procedure(s): XR tibia fibula LT 2V Accession Number(s): [id number] cc: Allison Mejía [facility]; [facility] EXAMINATION: XR TIBIA AND FIBULA, LEFT [...] OV> 06/07/25 08 DD/ TD/TT: 06/07/25 0732 Advertising Agent: [facility] External Provider IMG XR PROCEDURES Final Result * (ABNORMAL) Urinalysis, Complete, with Reflex to Culture (06/06/2025 9:11 PM EDT) Only the most recent of2 resultswithin the time period is included. Color Urine Yellow [facility] Appearance Urine Clear [facility] PH 6.0 5.0 - 9.0 [facility] Glucose Urine UA Negative Negative mg/dL [facility] Urine Blood Trace(A) Negative [facility] Specific [place] - Urine 1.015 1.005 - 1.025 [facility] Urine Protein Negative Neg-Trace mg/dL [facility] Urine Ketones Negative Negative mg/dL [facility] Nitrite Urine Negative Negative [facility] Leukocyte Esterase Urine Negative Negative [facility] RBC Urine 6-10(A) 0 - 2 /HPF [facility] Urine WBC 0-5 0 - 5 /HPF [facility] Urine Squamous Epithelial Cell 0-2 0 - 2 /HPF [facility] Urine Bacteria None Seen None Seen [facility] Hyaline Casts, Urine 0-2 0 - 2 /LPF [facility] 06/06/2025 9:11 PM EDT 06/06/2025 9:15 PM EDT Narrative [facility] - 06/06/2025 10:06 PM EDT [id number], [employer] us Generic External Data Provider LAB URINE ORDERAB LES Final Result Performing Organization Address City/State/[facility] Co de Phone Number [facility] [address] [place] [phone] * D Dimer High Sensitivity (06/06/2025 3:18 PM EDT) Only the most recent of2 resultswithin the time period is included. D Dimer High Sensitivity 1,296 NG/ML [facility] Comment:D-DIMER HS REFERENCE RANGENote: Our [...] ORDERAB LES Final Result Performing Organization Address [facility] Co de Phone Number [facility] [address] [place] [phone] * (ABNORMAL) Prothrombin Time-INR (06/06/2025 3:18 PM EDT) Prothrombin Time 25.0(H) 10.9 - 12.4 SEC [facility] INTERNATIONAL NORM RATIO 2.2(H) 0.9 - 1.1 [facility] Comment:INTERNATIONAL NORMAL IZED RATIO (INR) [...] 3:18 PM EDT 06/06/2025 3:25 PM EDT [employer] External Data Provider LAB BLOOD ORDERAB LES Final Result Performing Organization Address [facility] Co de Phone Number [facility] [address] [place] [phone] * Glucose, Whole Blood (06/04/2025 7:02 PM EDT) Only the most recent of2 resultswithin the time period is included. Glucose, Whole Blood 115 60 - 115 mg/dL [facility] Comment:METER #: [id number] 06/04/2025 7:02 PM EDT 06/04/2025 7:06 PM EDT us Generic External Data Provider LAB BLOOD ORDERAB LES Final Result Performing Organization Address City/[facility] Co de Phone Number [facility] [address] [place] [phone] * (ABNORMAL) Creatine Kinase, Total (06/04/2025 4:39 PM EDT) Creatine Kinase Total 504(H) 38 - 174 U/L [facility] 06/04/2025 4:39 PM EDT 06/04/2025 4:46 PM EDT Generic External Data Provider LAB BLOOD ORDERAB LES Final Result Performing Organization Address [facility] de Phone Number [facility] [address] [place] [phone] * Lower Extremity Venous Duplex (06/04/2025 4:06 PM EDT) 06/04/2025 4:06 PM EDT Narrative [facility] - 06/05/2025 8:20 AM EDT [address] [address] Ultrasound Report Signed Patient: Norberto Marquez MR#: [id number] : 1990 Acct:[id number] Age/Sex: 34 / M ADM Date: 06/04/25 Loc: .ED Attending Dr: Ordering Physician: Fartun Farris Date of Service: 06/04/25 Procedure(s): US venous duplex LE Accession Number(s): [id number] cc: [facility]; Fartun Farris EXAMINATION: US LOWER EXTREMITY [...] by Earl Miller MD in OV> 06/05/25 08 DD/ 1606 TD/TT: 06/04/25 1612 Advertising Agent: Procedure Note Donotuseinterpreter, Image - 06/05/2025 [place] [address] Ultrasound Report Signed Patient: Zully Marquez#: [id number] : 1990Acct:[id number] Age/Sex: 34 / MADM Date: 06/04/25 Loc: .ED Attending Dr: Ordering Physician: Fartun Farris Date of Service: 06/04/25 Procedure(s): US venous duplex LE LT Accession Number(s): [id number] cc: [facility]; Fartun Farris EXAMINATION: US LOWER EXTREMITY [...] 06/05/25 0817 DD/ 1606 TD/TT: 06/04/25 1612 Advertising Agent: [facility] External Provider CV VASC ULAR PROCEDURES Final Result Performing Organization Address City/[facility]/ZIP Co de Phone Number [facility] [address] [place] [address] * HIV-1/2 Antigen and Antibodies, Fourth Generation, with Reflexes (04/08/2024 11:52 AM EDT) Pathologist [facility] [place] HIV AB/AG Nonreactive Nonreactive [facility] Comment:HIV-1 p24 Ag and/or HIV-1/HIV-2 Ab not detected.A test result that is nonreactive does not exclude thepossibility of exposure to or infection with HIV-1 and/orHIV-2. Nonreactive results in this assay for individualswith prior exposure to HIV-1 and/or HIV-2 may be due toantigen and antibody levels that are below the limit ofdetection of this assay.The [employer] HIV Ag/Ab Combo assay result andsupplemental assay results should be interpreted inconjunction with the patient's clinical presentation,history and other laboratory results. If the results areinconsistent with clinical evidence, additional testing issuggested to confirm the result. Blood Venous blood specimen / Unknown 04/08/2024 11:52 AM EDT 04/08/2024 12:58 PM EDT Alba So NP LAB BLOOD ORDERABLES Final Resu lt Performing Organization Address City/[facility]/ZIP Co de Phone Number [facility] [address] [place] [phone] from Last 3 Months or Most Recently Relevant to Health Maintenance Insurance [facility] Care Teams [employer] Professor Relationship Specialty Start Date End Date Alba So NP [address] [place] [address] PCP - General Family Medicine 04/14/24
[2025-08-28 19:23] VITALS: BP 109/79; PULSE 93; RESP 18; TEMP 37.5; O2SAT 94
[2025-08-28 19:27] VITALS: BP 123/73; PULSE 91; RESP 20; TEMP 36.6; O2SAT 91
--- NOTE | 2025-08-28 19:58 | PC.NURSE ---
this RN assumed care of this pt @1900, pt noted to be laying semi fowlers, eyes closed, respirations even and unlabored, no apparent distress noted, pt has call light by the side for safety, plan of care on going
[2025-08-28 21:03] VITALS: BP 129/67; PULSE 100; RESP 20; TEMP 36.7; O2SAT 93
[2025-08-28] MEDS: Sulfamethox/Trimeth 800/160 TABLET 1 TAB PO (21:03)
[2025-08-28 21:07] VITALS: BP 129/67; PULSE 100; RESP 20; TEMP 36.7; O2SAT 93
== END 2025-08-28 21:11 | disposition home or self-care (01) ==
PROVIDERS: Emergency Provider Emergency Medicine
DX: L03.116 Cellulitis of left lower limb (principal); L03.115 Cellulitis of right lower limb; R60.0 Localized edema; M79.604 Pain in right leg; F17.200 Nicotine dependence, unspecified, uncomplicated; Z71.6 Tobacco abuse counseling
CPT/HCPCS: 93971; 99284

== ENCOUNTER → 2025-08-28 15:32 | Outpatient (BNV) | payer MEDICAID, SELFPAY | PROVIDERS: Visit Provider Radiology Diagnostic Radiology | DX: R22.41 Localized swelling, mass and lump, right lower limb (principal); M79.604 Pain in right leg | CPT/HCPCS: 93971 ==

== ENCOUNTER 2025-08-29 10:45 | Outpatient (AMB) | payer MEDICAID, SELFPAY ==
--- OUTSIDE RECORDS SUMMARY | 2025-08-28 13:00 | XMS_ITS | Encounter Summary ---
Author Organization [employer] Address [address] [place] [address] Care Team Providers Care Heel Seater Name Role Phone Alba So GENEVA Primary Care Provider [phone] Encounter Details Date Type Department Care Team (Late st Contact Info) Description 08/28/2025 1:00 PM EST Office Visit [facility] [address] [place] [address] Tami House MD [address] [place] [address] Cellulitis of lower extremity, unspecified laterality (Primary Dx) Social History Tobacco Use Types [...] Sign Reading Time Taken Comments Blood Pressure 141/79 08/28/2025 12:59 PM EST Pulse 111 08/28/2025 12:59 PM EST Temperature 33.3 C (92 F) 08/28/2025 12:59 PM EST Respiratory Rate 20 08/28/2025 12:59 PM EST Oxygen Saturation 92% 08/28/2025 12:59 PM EST Inhaled Oxygen Concentration - - Weight 88.6 kg (195 lb 6.4 oz) 08/28/2025 12:59 PM EST Height 170.2 cm (5' 7 ) 08/28/2025 12:59 PM EST Body Mass Index 30.6 08/28/2025 12:59 PM EST documented in this encounter Progress Notes * Tami Dewitt MD - 08/28/2025 1:00 PM EST SUBJECTIVE: Norberto Marquez is a 34 y.o. year old male who presents for acute visit . Norberto Marquez, 34 years Leg Pain and Swelling - History of leg swelling and pain, described as very painful and persistent - Swelling noted in the whole ankle and top of the foot, described as fat and limiting movement - Symptoms present every day, worsening recently - Leg previously more swollen than current state -First it was the left leg now he is also having same symptoms on right leg Recent Infection - Recent emergency room visit with diagnosis of pneumonia - Currently taking two prescribed antibiotics daily (doxycycline and amoxicillin) for infection Social History Social History Narrative Not on file Alcohol dependence (HCC) Heroin dependence (CMS/HCC) (HCC) [...] LUCERO (acute kidney injury) Anasarca Back pain 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 HENT: Negative. Respiratory: Negative. Cardiovascular: Negative. Musculoskeletal: Bilateral LE edmea, erythema, tenderness Skin: Positive for rash. OBJECTIVE: Vitals: 08/28/25 1259 BP: (!) 141/79 BP Location: Right arm Patient Position: Sitting BP Cuff Size: Adult Pulse: (!) 111 Resp: 20 Temp: 92 ??F (33.3 ??C) TempSrc: Temporal SpO2: 92% Weight: 195 lb 6.4 oz (88.6 kg) Height: 5' 7 (1.702 m) Physical Exam Cardiovascular: Rate and Rhythm: Regular rhythm. Tachycardia present. Pulmonary: Effort: Pulmonary effort is normal. Breath sounds: Normal breath sounds. Musculoskeletal: Right lower leg: Tenderness present. 3+ Edema present. Left lower leg: Tenderness present. 3+ Edema present. Comments: Erythema Follow Up: No follow-ups on file. Medications Ordered Prior to Encounter[2] Problem List Items Addressed This Visit Cellulitis of lower extremity - Primary Leg pain, edema, and possible infection or clot: - Lower extremity pain and edema with concern for infection not responsive to oral antibiotics. Cannot rule out deep vein thrombosis. Possible need for intravenous antibiotics. - Recommended hospital evaluation for further management, including possible intravenous antibiotics and assessment for clot. -Patient sign AMA form he want to go home eat something and then go to the hospital This note was drafted using Ambient (AI) technology. The patient/patient's guardian has been informed and has consented to the use of this technology: Yes [1] No family history on file. [2] Current Outpatient Medications on File Prior to Visit Medication Sig Dispense Refill allopurinol (Zyloprim) 100 MG tablet Take 1 tablet (100 mg) by mouth Once per day. 30 tablet 11 betamethasone valerate (Valisone) 0.1 % ointment Apply topically if needed in the morning and at bedtime (dryness). 45 g 2 Blood Pressure kit 1 each 2 times daily. 1 kit 0 [] doxycycline (Vibra-Tabs) 100 MG tablet Take 1 tablet (100 mg) by mouth 2 times daily for 10 days. Take with a full glass of water and do not lie down for at least 30 minutes after. 20 tablet 0 Eliquis 5 MG tablet Take 1 [...] spray PLEASE SEE ATTACHED FOR DETAILED DIRECTIONS [] [id number] (Neosporin) 5-400-5000 ointment Apply topically Once per day for 10 days. 14.2 g 0 sertraline (Zoloft) 50 MG tablet Take [...] prior to visit. documented in this encounter Plan of Treatment Upcoming Encounters Date Type Department Care Team (Late st Contact Info) Description 09/25/2025 2:00 PM EST Office Visit [facility] [address] [place] [address] Alba So NP [address] [place] [address] documented as of this encounter Visit Diagnoses Diagnosis Cellulitis of lower extremity, unspecified laterality- Primary documented in this encounter Additional Health Concerns Assessment Noted Time PHQ-9 Depression Total Score: 18 024 11:56 AM EST documented as of this encounter Care Teams Heel Seater Relationship Specialty Start Date End Date Alba So NP [address] [place] [address] PCP - General Family Medicine 04/14/24 documented as of this encounter
--- NOTE | 2025-08-29 10:52 | MHC.OFFVIS ---
Intake Visit Reasons: PRN VV Follow Up Intake Note: PRN bilateral LE VV, Right LE was seen in the ED yesterday, pt states on Abx. Also has Left LE swelling. Bilateral LE discoloration, bleeding VV Email Campaign Specialist Required: No Accompanied by: Self / Same As Patient Allergies No Known Allergies (No Known Allergies*) Allergy (Verified 08/29/25 10:56) HPI HPI PRN VV Follow Up: Details: The patient is a 34-year-old male presenting with follow-up after a recent emergency room visit for bleeding varicosities. The patient has a history of polysubstance abuse, which was active during his initial visit in September 2024. He has not been compliant with follow-up care since that time. Recently, he presented to the emergency room with bleeding varicosities and swelling in his foot. He was treated with antibiotics and advised to wear compression stockings to manage the swelling. The patient also has a history of a leg ulcer, which was previously infected and required treatment. The ulcer had healed approximately two months ago after being present for about eight months. [facility] Medical History Hepatic cirrhosis Mitral valve vegetation Heart failure with mildly reduced ejection fraction Prosthetic valve malfunction Active intravenous drug use Pulmonary embolism without acute cor pulmonale Tricuspid valve vegetation Endocarditis Hypersensitivity pneumonitis Hemoptysis Rhabdomyolysis Anemia LUCERO (acute kidney injury) Polysubstance abuse Opioid use disorder Opioid use disorder, severe, dependence Substance abuse MSSA bacteremia Bacteremia Bacteremia Right heart failure Steatosis, liver Tricuspid valve stenosis Anasarca HCV (hepatitis C virus) Endocarditis Pulmonary embolism Surgical History S/P tricuspid valve replacement History of tricuspid valve replacement with bioprosthetic valve Social History (Updated 08/29/25 @ 10:58 by SHANNA Olivares) Household Members: Other Household Members Other:: [facility] Housing: Homeless Do you presently have visiting nurse or other home services: No Alcohol intake: former Patient Tobacco Use Status: Former Tobacco user Tobacco use type: Cigarette Cigarette Packs Per Day: 0.5 Cigarettes Per Day: 10.0 Years Smoked: 10 Second Hand Smoke Exposure: No Substance Use Type: IV Drugs Advance Directives Date on File: 04/16/21 service: No Current occupational status: unemployed Review of Systems Const Reports as per HPI ENT Reports no additional complaints Card Denies chest pain, Denies chest pain at rest and Denies chest pain with activity Resp Denies chest congestion and Denies cough GI Reports no additional complaints Musc Details: pain over varicosities, aching of lower extremities, swelling, cramping, heaviness and tiredness, itching Denies abnormal gait Skin/Breast Reports pruritus and Denies wounds Neuro Reports no additional complaints and Denies abnormal gait Psych Denies no additional complaints Physical Exam Const General: cooperative, healthy appearing and comfortable Orientation/consciousness: oriented to person, oriented to place and oriented to time Neck Carotids: no bruits Chest Chest palpation & inspection: normal inspection of the chest and normal palpation of entire chest wall Resp Effort & Inspection: normal respiratory effort and able to speak in complete sentences Cardio Rate: regular rate Heart sounds: S1 normal heart sound present and S2 normal heart sound present Peripheral pulses: Peripheral pulses 2+ throughout GI Inspection: Yes normal to inspection Skin Other: +2 edema, active ulceration CEAP Classification C6 - active ulcers Ep - Etiology Primary As - superficial veins P - reflux General skin exam: dry skin Neuro General: oriented to person, oriented to place and oriented to time Extrem Right lower extremity: full ROM, normal capillary refill and edema Left lower extremity: full ROM, normal capillary refill and edema Psych Mental Status: mental status grossly normal Assessment & Plan Assessment & Plan (1) Varicose veins of left lower extremity with inflammation: Code(s): I83.12 - Varicose veins of left lower extremity with inflammation Category: Medical Plan: I discussed with the patient the importance of completing a urine toxicology screen before proceeding with further treatment. At the time of our visit he was in coherent had the stigmata of recently using. I did inform him that I would not be able to do any procedures from a venous perspective because there are often implants such as the ones used in Cyanoacralate ablation that would become dangerous to his legs if they did become infected from IV injections. We also reviewed the necessity of wearing compression stockings and elevating the legs to manage swelling. I emphasized adherence to antibiotic therapy to clear infection. Follow-up will be arranged once the toxicology results are available. Coding Level of Care Code Est Pt Level 4 (78519) Diagnoses Varicose veins of left lower extremity with inflammation I83.12
--- OUTSIDE RECORDS SUMMARY | 2025-08-29 12:29 | XMS_ITS | Encounter Summary ---
Author Organization [employer] Address [address] [facility] 7t [place] [address] Care Team Providers Care Music Grapher Name Role Phone Alba So GENEVA Primary Care Provider [phone] Encounter Details Date Type Department Care Team (Late st Contact Info) Description 04/26/2024 Orders Only [facility] MEDICINE [address] [place] [address] Varun Givens, PharmD [address] [place] [address] Social History Tobacco Use Types Packs/Day Years [...] Office Visit [facility] [address] [place] [address] Alba So NP [address] [place] [address] documented as of this encounter Visit Diagnoses Not on filedocumented in this encounter Additional Health Concerns Assessment Noted Time PHQ-9 Depression Total Score: 0 06/03/20 23 10:05 AM EDT documented as of this encounter Care Teams Music Grapher Relationship Specialty Start Date End Date Alba So NP [address] [place] [address] PCP - General Family Medicine 04/14/24 documented as of this encounter
--- OUTSIDE RECORDS SUMMARY | 2025-08-29 12:29 | XMS_ITS | Encounter Summary ---
Author Organization [employer] Address [address] [facility] 7t [place] [address] Care Team Providers Care Lag Screwer Name Role Phone Alba So GENEVA Primary Care Provider [phone] Encounter Details Date Type Department Care Team [...] Description 09/25/2025 2:00 PM EST Office Visit [facility] MEDICINE [address] [place] [address] Alba So NP [address] [place] [address] documented as of this encounter Visit Diagnoses Not on filedocumented in this encounter Additional Health Concerns Assessment Noted Time PHQ-9 Depression Total Score: 18 024 11:56 AM EST documented as of this encounter Care Teams Lag Screwer Relationship Specialty Start Date End Date Alba So NP [address] [place] [address] PCP - General Family Medicine 04/14/24 documented as of this encounter
--- OUTSIDE RECORDS SUMMARY | 2025-08-29 12:29 | XMS_ITS | Encounter Summary ---
Author Organization [email or web address] Address [address] 7[address] [place] [address] Care Team Providers Care Junior Architect Name Role Phone Nirali Lott Primary Care Provider [phone] Alba So NP Primary Care Provider [phone] Encounter Details Date Type Department Care Team (Late st Contact Info) Description 10/27/2023 Orders Only [facility] CHC MED & PEDS [address] [place] [address] Nirali Lott FNP [address] [place] [address] Infective endocarditis of tricuspid valve (Primary Dx) [...] Description 09/25/2025 2:00 PM EST Office Visit [facility] MEDICINE [address] [place], [place] [phone] Alba So NP [address] [place] [address] documented as of this encounter Procedures Procedure Name Priority Date/Time Associated Diagnosis Comments CT LIVER 3 PHASE Routine 10/27/2023 4:35 PM EST documented in this encounter Results * CT liver 3 phase (10/27/2023 4:35 PM EST) Anatomical Region Laterality Modality Liver Computed Tomogra phy 10/27/2023 4:35 PM EST Narrative 11/02/2023 11:06 AM EST [address] [address] [address] Scan Report Signed Patient: Norberto Marquez MR#: [id number] : 1990 Acct:[id number] Age/Sex: 33 / M ADM Date: 10/27/23 Loc: HO.CT Attending Dr: Randa Chisholm MD Ordering Physician: Randa Chisholm MD Date of Service: 10/27/23 Procedure(s): CT liver 3 phase Accession Number(s): [id number] cc: Randa Chisholm MD; [facility] EXAMINATION: CT ABDOMEN without and WITH [...] in OV> 11/02/23 1101 DD/ 1635 TD/TT: Naval Aircrewman: SS Procedure Note Donotuseinterpreter, Image - 11/03/[address] [place] [address] [address] Scan Report Signed Patient: Zully Marquez#: [id number] : 1990Acct:[id number] Age/Sex: 33 / MADM Date: 10/27/23 Loc: HO.CT Attending Dr: Randa Chisholm MD Ordering Physician: Randa Chisholm MD Date of Service: 10/27/23 Procedure(s): CT liver 3 phase Accession Number(s): [id number] cc: Randa Chisholm MD; [facility] EXAMINATION: CT ABDOMEN without and WITH [...] in OV> 11/02/23 1101 DD/ 1635 TD/TT: Naval Aircrewman: ELIEZER [facility] External Provider IMG CT PROCEDURES Final Result documented in this encounter Visit Diagnoses Diagnosis Infective endocarditis of tricuspid valve- Primary documented in this encounter Additional Health Concerns Assessment Noted Time PHQ-9 Depression Total Score: 0 06/03/20 10:05 AM EDT documented as of this encounter Care Teams Junior Architect Relationship Specialty Start Date End Date Nirali Lott FNP [address] [place] [address] PCP - General Family Medicine 07/09/23 04/13/24 Alba So NP [address] [place] [address] PCP - General Family Medicine 04/14/24 documented as of this encounter
--- OUTSIDE RECORDS SUMMARY | 2025-08-29 12:29 | XMS_ITS | Encounter Summary ---
Author Organization [employer] Address [address] [facility] 7t [place] [address] Care Team Providers Care Assistant Brand Manager Name Role Phone Nirali LottP Primary Care Provider [phone] Alba So NP Primary Care Provider [phone] Reason for Visit * Reason Onset Date Comments Hospital Follow-up 04/05/2024 Encounter Details Date Type Department Care Team ([facility] st Contact Info) Description 04/05/2024 Telephone [facility] MEDICINE [address] [place] [address] Nirali Lott FNP [address] [place] [address] Hospital Follow-up Social History Tobacco Use Types [...] from pt requesting a HDF appt. Hospital: [facility] Date of admission: 03/30 Discharge date: 04/01 Diagnosed: Chest Pain documented in this encounter Plan of Treatment Upcoming Encounters Date Type Department Care Team (Late st Contact Info) Description 09/25/2025 2:00 PM EST Office Visit [facility] MEDICINE [address] [place] [address] Alba So NP [address] [place] [address] documented as of this encounter Visit Diagnoses Not on filedocumented in this encounter Additional Health Concerns Assessment Noted Time PHQ-9 Depression Total Score: 0 06/03/20 10:05 AM EDT documented as of this encounter Care Teams Assistant Brand Manager Relationship Specialty Start Date End Date Nirali Lott FNP [address] [place] [address] PCP - General Family Medicine 07/09/23 04/13/24 Alba So NP [address] [place] [address] PCP - General Family Medicine 04/14/24 documented as of this encounter
--- OUTSIDE RECORDS SUMMARY | 2025-08-29 12:29 | XMS_ITS | Encounter Summary ---
Author Organization [facility] Address [address] [facility] [address] [place] [address] Phone Care Team Providers Care Coffee Maker Name Role Phone Pcp, Unknown Primary Care Provider Unavailabl e Encounter Details Date Type Department Care Team (Late st Contact Info) Description 02/14/2020 Transcribe Orders [facility] Specimen Processing [address] [place] [address] Donell Villalobos, DO [address] [facility] [place] [address] [place] [address] [email or web address] Encounter for health examination of prisoner (Primary [...] ALKALINE PHOSPHATASE 138(H) 39 - 117 U/L [facility] TOTAL BILIRUBIN 0.5 0.0 - 1.2 mg/dL [facility] DIRECT BILIRUBIN 0.2 0 - 0.3 mg/dL [facility] Bilirubin (Indirect) 0.3 0 - 1.5 mg/dL [facility] AST 114(H) 0 - 37 U/L [facility] ALT 235(H) 0 - 40 U/L [facility] TOTAL PROTEIN 6.8 6.5 - 8.0 g/dL [facility] ALBUMIN 4.1 3.9 - 4.8 g/dL [facility] GLOBULIN 2.7 1 - 4.8 g/dL [facility] A/G Ratio 1.52 1.00 - 4.80 RATIO [facility] Blood 02/15/2020 10:0 4 AM EDT 02/15/2020 11:32 AM EDT us Donell A Bigda DO LAB BLOOD BKR ORDERABLES Final R esult Performing Organization Address City/State/[facility] Co de Phone Number [facility] [address] [place] [address] documented in this encounter Visit Diagnoses Diagnosis Encounter for health examination of prisoner- Primary documented in this encounter Additional Health Concerns Infection Onset Date Last Indicated Resolved Time CoV-Risk 03/27/2023 03/27/2023 04/07/2023 1:22 AM EDT documented as of this encounter Care Teams Coffee Maker Relationship Specialty Start Date End Date Pcp, Unknown PCP - General 12/06/19 documented as of this encounter Additional Source Comments The information contained in this document represents components of the legal health record. It is not the complete legal health record.[facility]
--- OUTSIDE RECORDS SUMMARY | 2025-08-29 12:30 | XMS_ITS | Encounter Summary ---
Author Organization [employer] Address [address] [facility] 7t [place] [address] Care Team Providers Care Music Therapy Teacher Name Role Phone Nirali LottP Primary Care Provider [phone] Alba So NP Primary Care Provider [phone] Reason for Visit * Reason Onset Date Comments PT1 10/02/2023 Encounter Details Date Type Department Care Team ([facility] st Contact Info) Description 10/02/2023 Telephone [facility] MEDICINE [address] [place] [address] Nirali Lott FNP [address] [place], [place] [phone] PT1 Social History Tobacco Use Types Packs/Day [...] 10/02/2023 11:00 AM EST PT-1 Request Number [id number] is Pending * Telephone Encounter - Christine Mak - 10/02/2023 10:32 AM EST Tc alanna Cruz with [facility] requesting PT1 transportation. Date: 10/20/2022 Time: 10:15 Visits: 12 a year Address: [address] [place] [address] [facility] Chair: n/a Circular Tank Cooper Needed: n/a documented in this encounter Plan of Treatment Upcoming Encounters Date Type Department Care Team (Late st Contact Info) Description 09/25/2025 2:00 PM EST Office Visit [facility] MEDICINE [address] [place] [address] Alba So NP [address] [place] [address] documented as of this encounter Visit Diagnoses Not on filedocumented in this encounter Additional Health Concerns Assessment Noted Time PHQ-9 Depression Total Score: 0 06/03/20 23 10:05 AM EDT documented as of this encounter Care Teams Music Therapy Teacher Relationship Specialty Start Date End Date Nirali Lott FNP [address] [place] [address] PCP - General Family Medicine 07/09/23 04/13/24 Alba So NP [address] [place] [address] PCP - General Family Medicine 04/14/24 documented as of this encounter
--- OUTSIDE RECORDS SUMMARY | 2025-08-29 12:30 | XMS_ITS | Clinical Summary ---
Author Organization [facility] Address [address] [place] [address], [place] [address] Care Team Providers Care Magician/Illusionist Name Role Phone Unavailable Primary Care Provider [...]
--- OUTSIDE RECORDS SUMMARY | 2025-08-29 12:30 | XMS_ITS | Encounter Summary ---
Author Organization [employer] Address [address] [facility] 7t [place] [address] Care Team Providers Care Bioinformaticist Name Role Phone Nirali Lott Primary Care Provider [phone] Alba So NP Primary Care Provider [phone] Reason for Referral * Consultation (Routine) - Closed Specialty Diagnoses / Procedures Referred By Merle t Referred To Contact Hand Surgery Diagnoses Pain in finger of left hand Nirali Lott FNP [address] [place] [address] Phone: tel: fax: [facility] [address] [place] [address] Phone: tel: Referral ID Status Reason Start Date Expiration Date V isits Requested Visits Authorized [id number] Closed Specialty Services Required 12/23/2023 12/22/2024 6 6 Encounter Details Date Type Department Care Team (Late st Contact Info) Description 12/23/2023 Orders Only [facility] CHC MED & PEDS [address] [place] [address] Nirali Lott FNP [address] [place] [address] Pain in finger of left hand (Primary [...] 2:00 PM EST Office Visit [facility] MEDICINE [address] [place] [address] Alba So NP [address] [place] [address] Scheduled Referrals Name Type Priority Associated Diagnoses [...] documented as of this encounter Care Teams Bioinformaticist Relationship Specialty Start Date End Date Nirali Lott FNP [address] [place] [address] PCP - General Family Medicine 07/09/23 04/13/24 Alba So NP [address] [place] [address] PCP - General Family Medicine 04/14/24 documented as of this encounter
--- OUTSIDE RECORDS SUMMARY | 2025-08-29 12:30 | XMS_ITS | Encounter Summary ---
Author Organization [facility] Address [address] [place] [address] Phone Care Team Providers Care Tubular Riveter Name Role Phone Pcp, Unknown Primary Care Provider Unavailabl e Encounter Details Date Type Department Care Team (Late st Contact Info) Description 04/08/2023 Transcribe Orders [facility] Specimen Processing [address] [place] [address] Martinez Rendon MD [address] [facility] [place] [address] [email or web address] Congestive heart failure, unspecified HF chronicity, [...] 7:23 PM EDT Aisha Zelaya, RN * [place] Suicide Severity Rating Scale (Screener/Recent Self-Report) Question [...] EDT) SODIUM 140 133 - 146 mmol/L [facility] POTASSIUM 3.8 3.3 - 5.1 mmol/L [facility] CHLORIDE 108 96 - 108 mmol/L [facility] CO2 18(L) 21 - 35 mmol/L [facility] BUN 9 6 - 19 mg/dL [facility] CREATININE 0.70 0.5 - 1.5 mg/dL [facility] GLUCOSE 78 70 - 99 mg/dL [facility] ALBUMIN 3.7(L) 3.9 - 4.8 g/dL [facility] TOTAL PROTEIN 6.9 6.5 - 8.0 g/dL [facility] CALCIUM 8.9 8.4 - 10.3 mg/dL [facility] ALKALINE PHOSPHATASE 144(H) 39 - 117 U/L [facility] TOTAL BILIRUBIN 1.5(H) 0.0 - 1.2 mg/dL [facility] AST 13 0 - 37 U/L [facility] ALT 7 0 - 40 U/L [facility] GLOBULIN 3.2 1 - 4.8 g/dL [facility] EGFR >120 >59 mL/min/1.7 3m2 [facility] Comment:Estimated glomerular filtration rate calculated using the CKD-EPI refit equation. ANION GAP 18 10 - 20 mmol/L [facility] 04/08/2023 5:55 AM EDT 04/08/2023 8:22 AM EDT us Martinez Rendon MD LAB BLOOD BKR ORDERABLES Final R esult [address] [address] documented in this encounter Visit Diagnoses Diagnosis Congestive heart failure, unspecified HF chronicity, unspecified heart failure type- Primary documented in this encounter Care Teams Tubular Riveter Relationship Specialty Start Date End Date Pcp, Unknown PCP - General 12/06/19 documented as of this encounter Additional Source Comments The information contained in this document represents components of the legal health record. It is not the complete legal health record.[facility]
--- OUTSIDE RECORDS SUMMARY | 2025-08-29 12:30 | XMS_ITS | Encounter Summary ---
Author Organization [employer] Address [address] [facility] 7t [place] [address] Care Team Providers Care Dairy Machine Operator Farmworker Name Role Phone Nirali LottP Primary Care Provider [phone] Alba So NP Primary Care Provider [phone] Reason for Visit * Reason Onset Date Comments PT1 08/05/2023 Encounter Details Date Type Department Care Team ([facility] st Contact Info) Description 08/05/2023 Telephone [facility] MEDICINE [address] [place] [address] Nirali Lott FNP [address] [place], [place] [phone] PT1 Social History Tobacco Use Types Packs/Day [...] 08/05/2023 1:12 PM EDT PT-1 Request Number [id number] is Pending * Telephone Encounter - Sage Telles - 08/05/2023 12:36 PM EDT Tc alanna Manley with [facility] Partner requesting a PT1: Name of facility: [facility] Specialty: Consult possible liver transplant Location: [address] [place] [address] Date: 08/12/2023 Time: 11:00 am fax: n/a wheelchair: no Supervisor Tan Room: no All future appt's documented in this encounter Plan of Treatment Upcoming Encounters Date Type Department Care Team (Late st Contact Info) Description 09/25/2025 2:00 PM EST Office Visit [facility] MEDICINE [address] [place] [address] Alba So NP [address] [place] [address] documented as of this encounter Visit Diagnoses Not on filedocumented in this encounter Additional Health Concerns Assessment Noted Time PHQ-9 Depression Total Score: 0 06/03/20 10:05 AM EDT documented as of this encounter Care Teams Dairy Machine Operator Farmworker Relationship Specialty Start Date End Date Nirali Lott FNP [address] [place] [address] PCP - General Family Medicine 07/09/23 04/13/24 Alba So NP [address] [place] [address] PCP - General Family Medicine 04/14/24 documented as of this encounter
--- OUTSIDE RECORDS SUMMARY | 2025-08-29 12:30 | XMS_ITS | Encounter Summary ---
Author Organization [employer] Address [address] [facility] 7t [place] [address] Care Team Providers Care Junior Linux Administrator Name Role Phone Mack Jin WHITTEN Primary Care Provider Unavail able Nirali Lott Primary Care Provider [phone] Alba So NP Primary Care Provider [phone] Encounter Details Date Type Department Care Team ([facility] Contact Info) Description 06/08/2023 Orders Only [facility] CHC MED & PEDS [address] [place], [place] [phone] Nirali Lott FNP [address] [place] [address] Chronic hepatitis C without hepatic coma (CMS/HCC) [...] Description 09/25/2025 2:00 PM EST Office Visit [facility] MEDICINE [address] [place] [address] Alba So NP [address] [place] [address] documented as of this encounter Visit Diagnoses Diagnosis Chronic hepatitis C without hepatic coma (HCC)- Primary documented in this encounter Additional Health Concerns Assessment Noted Time PHQ-9 Depression Total Score: 0 06/03/20 10:05 AM EDT documented as of this encounter Care Teams Junior Linux Administrator Relationship Specialty Start Date End Date Jin Mack AGNP PCP - General Family Medicine 04/24/23 07/08/23 Nirali Lott FNP [address] [place] [address] PCP - General Family Medicine 07/09/23 04/13/24 Alba So NP [address] [place] [address] PCP - General Family Medicine 04/14/24 documented as of this encounter
--- OUTSIDE RECORDS SUMMARY | 2025-08-29 12:30 | XMS_ITS | Encounter Summary ---
Author Organization [employer] Address [address] [facility] 7t [place] [address] Care Team Providers Care Criminal Intelligence Analyst Name Role Phone Alba So NP Primary Care Provider [phone] Encounter Details Date Type Department Care Team (Late st Contact Info) Description 12/21/2024 Orders Only [facility] MED[facility] [address] [place] [address] Alba So NP [address] [place] [address] Social History Tobacco Use Types Packs/Day Years [...] Description 09/25/2025 2:00 PM EST Office Visit [facility] [address] [place] [phone] Alba So NP 230 [place] [address] documented as of this encounter Visit Diagnoses Not on filedocumented in this encounter Additional Health Concerns Assessment Noted Time PHQ-9 Depression Total Score: 18 024 11:56 AM EST documented as of this encounter Care Teams Criminal Intelligence Analyst Relationship Specialty Start Date End Date Alba So NP [address] [place] [phone] PCP - General Family Medicine 04/14/24 documented as of this encounter
--- OUTSIDE RECORDS SUMMARY | 2025-08-29 12:30 | XMS_ITS | Encounter Summary ---
Author Organization [facility] Address [address] [place] [phone] Phone Care Team Providers Care Electrical Superintendent Name Role Phone Pcp, Unknown Primary Care Provider Unavailabl e Encounter Details Date Type Department Care Team (Late st Contact Info) Description 10/20/2023 Transcribe Orders Virtual Department 30 [place] [address] Lucy Best PA [address] [place], [place] [phone] [email or web address] Anemia, unspecified type (Primary Dx) Social History [...] Primary documented in this encounter Care Teams Electrical Superintendent Relationship Specialty Start Date End Date Pcp, Unknown PCP - General 12/06/19 documented as of this encounter Additional Source Comments The information contained in this document represents components of the legal health record. It is not the complete legal health record.[facility]
--- OUTSIDE RECORDS SUMMARY | 2025-08-29 12:30 | XMS_ITS | Encounter Summary ---
Author Organization [facility] Address [address] [place] [phone] Phone Care Team Providers Care Jewelry Sales Name Role Phone Pcp, Unknown Primary Care Provider Unavailabl e Encounter Details Date Type Department Care Team ([facility] st Contact Info) Description 09/16/2023 Procedure Pass [facility] Endoscopy Admitting Dept Virtual Department [address] [place] [address] Social History Tobacco Use Types Packs/Day Years [...] on filedocumented in this encounter Care Teams Jewelry Sales Relationship Specialty Start Date End Date Pcp, Unknown PCP - General 12/06/19 documented as of this encounter Additional Source Comments The information contained in this document represents components of the legal health record. It is not the complete legal health record.[facility]
--- OUTSIDE RECORDS SUMMARY | 2025-08-29 12:30 | XMS_ITS | Encounter Summary ---
Author Organization [employer] Address [address] [facility] 7t [place] [address] Care Team Providers Care Forestry Worker Name Role Phone Alba So NP Primary Care Provider [phone] Encounter Details Date Type Department Care Team (Late st Contact Info) Description 07/07/2025 Results Follow-Up [facility] MEDICINE [address] [place] [address] Alba So NP 230 [place] [address] CBC auto differential, Complete Blood Count Manual [...] 09/25/2025 2:00 PM EST Office Visit [facility] MED[facility]INE [address] [place] [address] Alba So NP [address] [place] [address] documented as of this encounter Visit Diagnoses Not on filedocumented in this encounter Additional Health Concerns Assessment Noted Time PHQ-9 Depression Total Score: 18 024 11:56 AM EST documented as of this encounter Care Teams Forestry Worker Relationship Specialty Start Date End Date Alba So NP [address] [place] [address] PCP - General Family Medicine 04/14/24 documented as of this encounter
--- OUTSIDE RECORDS SUMMARY | 2025-08-29 12:30 | XMS_ITS | Clinical Summary ---
Author Organization [facility] Address [address] [place] [phone] Phone Care Team Providers Care Supervisor Record Press Name Role Phone Pcp, Unknown Primary Care [...] EDT) SODIUM 140 133 - 146 mmol/L [facility] POTASSIUM 4.2 3.3 - 5.1 mmol/L [facility] CHLORIDE 109(H) 96 - 108 mmol/L [facility] CO2 19(L) 21 - 35 mmol/L [facility] BUN 10 6 - 19 mg/dL [facility] CREATININE 0.80 0.5 - 1.5 mg/dL [facility] GLUCOSE 67(L) 70 - 99 mg/dL [facility] ALBUMIN 3.7(L) 3.9 - 4.8 g/dL [facility] TOTAL PROTEIN 6.7 6.5 - 8.0 g/dL [facility] CALCIUM 8.8 8.4 - 10.3 mg/dL [facility] ALKALINE PHOSPHATASE 137(H) 39 - 117 U/L [facility] TOTAL BILIRUBIN 1.3(H) 0.0 - 1.2 mg/dL [facility] AST 13 0 - 37 U/L [facility] ALT 6 0 - 40 U/L [facility] GLOBULIN 3.0 1 - 4.8 g/dL [facility] EGFR 119 >59 mL/min/1.7 3m2 [facility] Comment:Estimated glomerular filtration rate calculated using the CKD-EPI refit equation. ANION GAP 16 10 - 20 mmol/L [facility] Blood 04/13/2023 6:42 AM EDT 04/13/2023 11:39 AM EDT us Martinez Rendon MD LAB BLOOD BKR ORDERABLES Final R esult [address] [address] from Last 3 Months or Most Recently Relevant to Health Maintenance Insurance C3 ACO C3 ACO C3 ACO C3 ACO C3 ACO C3 ACO Care Teams Supervisor Record Press Relationship Specialty Start Date End Date Pcp, Unknown PCP - General 12/06/19 Additional Source Comments The information contained in this document represents components of the legal health record. It is not the complete legal health record.[facility]
--- OUTSIDE RECORDS SUMMARY | 2025-08-29 12:30 | XMS_ITS | Encounter Summary ---
Author Organization [employer] Address [address] [facility] 7t [place] [address] Care Team Providers Care Locksmith Name Role Phone Nirali LottP Primary Care Provider [phone] Alba So NP Primary Care Provider [phone] Reason for Visit * Reason Onset Date Comments Referral 10/16/2023 Encounter Details Date Type Department Care Team ([facility] st Contact Info) Description 10/16/2023 Telephone [facility] MEDICINE [address] [place] [address] Nirali Lott FNP [address] [place] [address] Referral Social History Tobacco Use Types Packs/Day [...] - 10/16/2023 10:22 AM EST Tc from [facility] never received referral. documented in this encounter Plan of Treatment Upcoming Encounters Date Type Department Care Team (Late st Contact Info) Description 09/25/2025 2:00 PM EST Office Visit [facility] MEDICINE [address] [place] [address] Alba So NP 230 [place] [address] documented as of this encounter Visit Diagnoses Not on filedocumented in this encounter Additional Health Concerns Assessment Noted Time PHQ-9 Depression Total Score: 0 06/03/20 23 10:05 AM EDT documented as of this encounter Care Teams Locksmith Relationship Specialty Start Date End Date Nirali Lott FNP 230 [place] [address] PCP - General Family Medicine 07/09/23 04/13/24 Alba So NP [address] [place] [address] PCP - General Family Medicine 04/14/24 documented as of this encounter
--- OUTSIDE RECORDS SUMMARY | 2025-08-29 12:30 | XMS_ITS | Encounter Summary ---
Author Organization [employer] Address [address] [facility] [address] 7[address] [place] [address] Care Team Providers Care Locomotive Oiler Name Role Phone GrahamFabriziomarty Harris SAFETY OFFICER Primary Care Provider Madisyn Jin [place] Primary Care Provider Unavail Nirali Diaz SAFETY OFFICER Primary Care Provider [phone] Alba So NP Primary Care Provider [phone] Encounter Details Date Type Department Care Team (Late st Contact Info) Description 01/05/2023 Orders Only [facility] [address] [place] [address] Nohemi Greene FNP Social History Tobacco Use [...] empyema, recurrent bacteremia and endocarditis,was admitted to [facility] on 07/16/22 for evaluation [...] mom and was in a program [place] and wasdischarged October 23, now lives at [...] 2:00 PM EST Office Visit [facility] [address] [place] [address] Alba So NP 230 [place], [place] [phone] documented as of this encounter Procedures Procedure [...] EDT 04/13/2023 3:00 PM EDT Comment:Blood Narrative [facility] - 04/18/2023 5:00 PM EDT Blood Culture (Second) No growth after 5 days. Specimen Source: Blood [facility] Exter nal Provider LAB MICROBIOLOGY - GENERAL ORDERABLES Final Result Performing Organization Address [facility]/ZIP Co de Phone Number [facility] [address] [place] [address] [phone] * Blood Culture (First) (04/13/2023 2:20 PM EDT) Blood 04/13/2023 2:20 PM EDT 04/13/2023 3:00 PM EDT Comment:Blood Narrative [facility] - 04/18/2023 5:00 PM EDT Blood Culture (First) No growth after 5 days. Specimen Source: Blood [facility] Exter nal Provider LAB MICROBIOLOGY - GENERAL ORDERABLES Final Result Performing Organization Address [facility]/ZIP Co de Phone Number [facility] [address] [place] [phone] * (ABNORMAL) Urinalysis, Complete, with Reflex to Culture (03/16/2023 6:50 PM EDT) Color Urine Dark Yellow [facility] Appearance Urine Clear [facility] PH 6.5 5.0 - 9.0 [facility] Glucose Urine UA Negative Negative mg/dL [facility] Urine Blood Small (1+)(A) Negative [facility] Specific Tenmile - Urine 1.015 1.005 - 1.025 [facility] Urine Protein 100 (2+)(A) Neg-Trace mg/dL [facility] Urine Ketones Negative Negative mg/dL [facility] Nitrite Urine Positive(A) Negative [facility] Leukocyte Esterase Urine Small (1+)(A) Negative [facility] RBC Urine >20(A) 0 - 2 /HPF [facility] Urine WBC 6-10(A) 0 - 5 /HPF [facility] Urine Squamous Epithelial Cell 0-2 0 - 2 /HPF [facility] Urine Bacteria None Seen None Seen [facility] Hyaline Casts, Urine 0-2 0 - 2 /LPF [facility] 03/16/2023 6:50 PM EDT 03/16/2023 7:08 PM EDT Narrative [facility] - 03/16/2023 7:57 PM EDT Urine, Clean Catch us [facility] External Provider LAB URI NE ORDERABLES Final Result [facility] [address] [place] [phone] * (ABNORMAL) CBC auto differential (03/16/2023 5:18 PM EDT) White Blood Count 11.0(H) 4.8 - 10.8 X10*3/uL [facility] Red Blood Count 4.07(L) 4.60 - 5.80 X10*6/uL [facility] Hemoglobin 9.7(L) 14.0 - 18.0 g/dl [facility] Hematocrit 30.7(L) 42.0 - 52.0 % [facility] Mean Corpuscular Volume 75.4(L) 80.0 - 98.0 fL [facility] Mean Corpuscular Hemoglobin 23.8(L) 27.0 - 33.0 pg [facility] Mean Corpuscular HGB Conc 31.6 31.0 - 36.0 g/dl [facility] Red Cell Distribution Width 31.5(H) 11.0 - 16.0 % [facility] Platelet Count 597(H) 160 - 400 X10*3/uL [facility] Mean Platelet Volume 9.8 9.4 - 12.4 fL [facility] Neutrophils Percent Auto 60.7 45 - 73 % [facility] Imm Gran Pct Auto 2.0(H) 0.0 - 0.4 % [facility] Lymphocytes Percent Auto 24.7 20 - 40 % [facility] Monocytes Percent Auto 10.5 2 - 11 % [facility] Eosinophils Percent Auto 1.1 0 - 4 % [facility] Basophils Percent Auto 1.0 0 - 2 % [facility] NRBC Pct Auto 0.0 0.0 - 0.2 /100WBC [facility] Neutrophils Absolute Auto 6.7 2.0 - 8.3 x10*3/uL [facility] Imm Gran Abs Auto 0.22(H) 0.00 - 0.03 X10*3/uL [facility] Lymphocytes Absolute Auto 2.7 1.2 - 4.9 X10*3/uL [facility] Monocytes Absolute Auto 1.2 0.1 - 1.2 X10*3/uL [facility] Eosinophils Absolute Auto 0.1 0.0 - 0.4 X10*3/uL [facility] Basophils Absolute Auto 0.1 0.0 - 0.2 X10*3/uL [facility] NRBC Abs Auto 0.000 0.0 - 0.012 X10*3/uL [facility] 03/16/2023 5:18 PM EDT 03/16/2023 5:24 PM EDT us [facility] External Provider LAB BLO OD ORDERABLES Final Result [facility] [address] [place] [phone] * High Sensitivity Troponin I (03/16/2023 5:18 PM EDT) TROPONIN I HIGH SENSITIVITY 11.4 <3.5 - 35.0 ng/L [facility] Comment:The Coley high sens itivity Troponin-I results should beused in conjunction with other diagnostic information suchas ECG, clinical observations and information, and patientsymptoms to aid in the diagnosis of CA. 03/16/2023 5:18 PM EDT 03/16/2023 5:24 PM EDT [facility] External Provider LAB BLO OD ORDERABLES Final Result Performing Organization Address [facility] Co de Phone Number [facility] [address] [place] [phone] * (ABNORMAL) B Type Natriuretic Peptide (BNP) (03/16/2023 5:18 PM EDT) B Type Natriuretic Peptide 378(H) <100 pg/mL [facility] Comment:For those patients w ho are being treated with Natrecor(nesiritide, recombinant BNP), BNP testing should beperformed at least two hours post treatment in order toensure that only endogenous levels of BNP are detected. 03/16/2023 5:18 PM EDT 03/16/2023 5:24 PM EDT [facility] External Provider LAB BLO OD ORDERABLES Final Result Performing Organization Address [facility] Co de Phone Number [facility] [address] [place] [phone] * (ABNORMAL) Lipase (03/16/2023 5:18 PM EDT) Lipase 168(H) 8 - 78 U/L [facility] 03/16/2023 5:18 PM EDT 03/16/2023 5:24 PM EDT [facility] External Provider LAB BLO OD ORDERABLES Final Result Performing Organization Address [facility] Co de Phone Number [facility] [address] [place] [phone] [phone] * (ABNORMAL) Basic Metabolic Panel (03/16/2023 5:18 PM EDT) Sodium 139 135 - 145 mmol/L [facility] Potassium 3.0(L) 3.3 - 5.1 mmol/L [facility] Chloride 106 96 - 108 mmol/L [facility] Carbon Dioxide 20(L) 22 - 29 mmol/L [facility] Anion Gap 16 12 - 20 [facility] Urea Nitrogen (BUN) 8(L) 9 - 16 mg/dL [facility] Creatinine, Serum 0.74 0.5 - 1.4 mg/dL [facility] Creatinine Clr Calc Pharmacy 131.5 [facility] Comment:eGFR (calculated fro m the MDRD study equation) and eCrCl(calculated from the Cockcroft-Gault equation) are based ondifferent parameters and may not yield comparable results.If eCrCl result is absurd, please check patient'sheight/weight. Estimated Glomerular Filt Rate >60 [facility] Comment:NOTE: For -Am erican individuals, multiply the result by 1.210.Chronic Kidney Disease: Estimated GFR < 60 mL/min/[id number] Kidney Disease: Estimated GFR < 15 mL/min/1.73m2 Glucose 84 60 - 115 mg/dL [facility] Calcium 9.4 8.4 - 10.2 mg/dL [facility] 03/16/2023 5:18 PM EDT 03/16/2023 5:24 PM EDT us [facility] External Provider LAB BLO OD ORDERABLES Final Result [facility] [address] [place] [phone] * (ABNORMAL) Hepatic Function Panel (03/16/2023 5:18 PM EDT) Bilirubin, Total 5.9(H) 0.0 - 1.0 mg/dL [facility] Bilirubin, Direct 3.5(H) 0.0 - 0.5 mg/dL [facility] Aspartate Amino Transferase 19 5 - 37 U/L [facility] Alanine Aminotransferase 13 0 - 40 U/L [facility] Total Protein 7.7 6.5 - 8.0 g/dL [facility] Albumin Level 3.9 3.5 - 5.0 g/dL [facility] Alkaline Phosphatase 154(H) 39 - 117 U/L [facility] 03/16/2023 5:18 PM EDT 03/16/2023 5:24 PM EDT [facility] External Provider LAB BLO OD ORDERABLES Final Result Performing Organization Address [facility] Co de Phone Number [facility] [address] [place] [phone] * Lactic Acid (03/16/2023 5:18 PM EDT) Lactic Acid 1.7 0.5 - 2.0 mmol/L [facility] 03/16/2023 5:18 PM EDT 03/16/2023 5:24 PM EDT [facility] External Provider LAB BLO OD ORDERABLES Final Result Performing Organization Address [facility] Co de Phone Number [facility] [address] [place] [phone] documented in this encounter Visit Diagnoses Not on filedocumented in this encounter Care Teams Locomotive Oiler Relationship Specialty Start Date End Date Megan Stevenson FNP PCP - General Family Medicine 03/27/22 04/23/23 Jin Mack AGNP PCP - General Family Medicine 04/24/23 07/08/23 Nirali Lott FNP [address] [place] [address] PCP - General Family Medicine 07/09/23 04/13/24 Alba So NP [address] [place] [phone] PCP - General Family Medicine 04/14/24 documented as of this encounter
--- OUTSIDE RECORDS SUMMARY | 2025-08-29 12:30 | XMS_ITS | Encounter Summary ---
Author Organization [facility] Address [address] [place] [phone] Phone Care Team Providers Care Fire Prevention Bureau Captain Name Role Phone Pcp, Unknown Primary Care Provider Unavailabl e Encounter Details Date Type Department Care Team (Late st Contact Info) Description 10/28/2023 Procedure Pass [facility] Endoscopy Admitting Dept Virtual Department [address] [place] [address] Social History Tobacco Use Types Packs/Day Years [...] on filedocumented in this encounter Care Teams Fire Prevention Bureau Captain Relationship Specialty Start Date End Date Pcp, Unknown PCP - General 12/06/19 documented as of this encounter Additional Source Comments The information contained in this document represents components of the legal health record. It is not the complete legal health record.[facility]
--- OUTSIDE RECORDS SUMMARY | 2025-08-29 12:30 | XMS_ITS | Encounter Summary ---
Author Organization [employer] Address [address] [facility] 7t [place] [address] Care Team Providers Care Foot Miter Operator Name Role Phone Alba So NP Primary Care Provider [phone] Encounter Details Date Type Department Care Team ([facility] st Contact Info) Description 07/20/2025 Results Follow-Up [facility] MED[facility] [address] [place] [address] Alba So NP [address] [place] [address] XR Chest 2 Views Social History Tobacco [...] Description 09/25/2025 2:00 PM EST Office Visit [facility] [address] [place] [address] Alba So NP [address] [place] [address] documented as of this encounter Visit Diagnoses Not on filedocumented in this encounter Additional Health Concerns Assessment Noted Time PHQ-9 Depression Total Score: 18 024 11:56 AM EST documented as of this encounter Care Teams Foot Miter Operator Relationship Specialty Start Date End Date Alba So NP [address] [place] [address] PCP - General Family Medicine 04/14/24 documented as of this encounter
--- OUTSIDE RECORDS SUMMARY | 2025-08-29 12:31 | XMS_ITS | Clinical Summary ---
Author Organization [employer] Address [address] [place] [address] Care Team Providers Care Lockstitch Waistline Joiner Name Role Phone Alba So GENEVA Primary Care Provider [phone] Allergies No known active allergies Medications [...] treatment, ambulance called and expect called to [facility]. 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 Taken to [place] ED, bleeding gums, not able to stop with pressure Hemoglobin 3 Received 1 prbc transfusion Transferred to [facility] for admission on 10/02/22. Received another transfusion Discharged 10/06/22 Ascites 07/21/2022 Bacteremia 07/21/2022 Overview (04/18/2023): Recurrent bacteremia and endocarditis found 03/04/23. Admitted. Left AMA on 03/14/23 Returned 03/15/23. Admitted again with plan to transfer to [facility], [facility], to continue antibiotics until 04/15 to finish [...] dependence (CMS/HCC) 06/27/2022 Overview (08/23/2024): Admitted to [facility] for rehab Treated w/ Methadone 40 mg at [facility] 03/16/23-04/15/23 -[facility] 08/23/24 Assessment & Plan (08/23/2024 2:45 PM EST): Admitted to [facility] for rehab Treated w/ Methadone 40 mg at [facility] 03/16/23-04/15/23 -[facility] to [facility] [...] 2020 Overview (10/09/2022): 07/16/22 - Presented to [facility] ED with hypotension, found to be in septic shock 07/20/22 - Left hospital AMA before completing IV antibiotics. Blood cultures positive for GBS and required pressor support when he arrived. 07/21/22 - Mother took Pt to [facility] ED since he left [facility]. Pt IV drug use while at [...] treatment or fibrosis score as of 04/13/23 [facility] ED notes Assessment & Plan (08/06/2023 [...] I will place a referral to our [facility] hep c team. Resolved Problems Problem Noted Date Diagnosed Date Resolved Date Chest pain 10/17/2024 08/16/2025 Elevated troponin 10/17/2024 08/16/2025 Endocarditis 10/17/2024 08/16/2025 Encounters Date Type Department Care Team Description 08/28/2025 1:00 PM EST Office Visit [facility] WALK-IN [address] [address] Tami House MD Cellulitis of lower extremity, unspecified laterality (Primary Dx) 08/28/2025 Travel 08/22/2025 Orders Only GENERIC EXTERNAL DATA DEPARTMENT Provider, Generic External Data 08/18/2025 8:40 AM EDT [facility] [address] [address] Mikie Fagan MD Cellulitis of left lower extremity (Primary Dx) 08/18/2025 Travel 08/17/[address] [address] Humaira Bruno RN Hep C 08/16/2025 10:00 AM EDT Office Visit [address] [address] Sabas Junior MD Cellulitis of left lower extremity (Primary Dx); Ulcer of extremity due to chronic venous insufficiency (HCC) 08/16/2025 Travel 08/13/2025 Results Follow-Up [address] [address] Krystyna Vaughn MD XR Fingers 2+ Views Left 08/11/2025 2:20 PM EDT Office Visit [facility] [address] [address] Krystyna Vaughn MD Finger pain, left (Primary Dx); Varicose veins of left lower extremity with inflammation; Tenosynovitis of finger 08/11/2025 Orders Only [address] [address] Krystyna Vaughn MD 08/11/2025 Travel 08/09/[address] [address] Humaira Bruno RN hep C tx 08/07/2025 10:20 AM EDT Office Visit [address] [address] Isamar Adams MD Acute bronchitis, unspecified organism (Primary Dx) 08/07/[address] [address] Isamar Adams MD 08/07/2025 Travel 08/03/[address] [address] Alba So NP ER Follow-up 07/26/[address] [address] Humaira Bruno, NABEEL Hep C tx 07/25/[address] [address] Krystyna Vaughn MD DME L&C Compression stockings 07/25/[address] [address] Krystyna Vaughn MD RX Compresson stockings 07/24/[address] [address] Alba So NP Durable Medical Equipment 07/20/2025 Results Follow-Up [address] [address] Alab So NP XR Chest 2 Views 07/19/2025 10:00 AM EDT Office Visit [address] [address] Viviana Cruz FNP Hospital discharge follow-up (Primary Dx); Hemorrhage of varicose veins of lower extremity, bilateral; History of positive hepatitis C 07/19/2025 Orders Only [facility] External Provider, [facility] 07/19/2025 Travel 07/18/2025 9:20 AM EDT [facility] [address] [address] Nighat Galloway MD Hx pulmonary embolism (Primary Dx); Shortness of breath; Hx of heart failure 07/18/2025 Travel 07/17/2025 Telephone [facility] [address] [place] [address] Malika Garnett PharmD 07/15/2025 10:40 AM EDT Office Visit [facility] [address] [place] [address] Krystyna Vaughn MD Venous stasis dermatitis of both lower extremities (Primary Dx); Bleeding from varicose veins of left lower extremity 07/15/2025 Travel 07/11/2025 Patient Outreach [facility] [address] [place] [address] Alba So NP Pre-visit Planning (HDF- scheduled with the direct line and SDOH screening completed on 01/19/2025) 07/07/2025 Results Follow-Up [address] [address] Alba So NP CBC auto differential, Complete Blood Count Manual Diff, Prothrombin Time-INR, Additional followed-up results: 7 06/06/2025 Orders Only GENERIC EXTERNAL DATA DEPARTMENT Provider, Generic External Data 06/04/2025 Orders Only GENERIC EXTERNAL DATA DEPARTMENT Provider, Generic External Data 05/30/2025 Telephone [facility] [address] [place] [address] Leela Gamino RN from Last 3 Months [...] Visit [facility] [address] [place] [address] Alba So NP [address] [place], [place] [phone] Health Maintenance Due Date Last Done Comments [...] 08/22/2025 2:21 PM EST COVID-19 ID NOW ([facility]) Routine 08/22/2025 1:43 PM EST INFLUENZA A [...] PM EST Narrative 08/22/2025 3:10 PM EST [place] [address] [address] Scan Report Signed Patient: Norberto Marquez MR#: [id number] : 1990 Acct:[id number] Age/Sex: 34 / M ADM Date: 08/22/25 Loc: .ED Attending Dr: Ordering Physician: Norma Grant DO Date of Service: 08/22/25 Procedure(s): CT angio chest PE protocol Accession Number(s): [id number] cc: Norma Grant DO; [facility] Report Number: [id number]: Total DLP = 240.00 mGy-cm Reason for [...] 08/22/25 1507 DD/ 1421 TD/TT: 08/22/25 1439 [employer] Home Park Manager: MICHAEL Procedure Note Donotuseinterpreter, Image - 08/22/[address] [place] [address] [address] Scan Report Signed Patient: Zully Marquez#: [id number] : 1990Acct:[id number] Age/Sex: 34 / MADM Date: 08/22/25 Loc: .ED Attending Dr: Ordering Physician: Norma Grant DO Date of Service: 08/22/25 Procedure(s): CT angio chest PE protocol Accession Number(s): [id number] cc: Norma Grant DO; [facility] Report Number: [id number]: Total DLP = 240.00 mGy-cm Reason for [...] 08/22/25 1507 DD/ 1421 TD/TT: 08/22/25 1439 [employer] Home [place] Manager: MICHAEL [facility] External Provider IMG CT PROCEDURES Final Result * Influenza A B2 ID NOW (Cheung) (08/22/2025 1:43 PM EST) Only the most recent of2 resultswithin the time period is included. IDNOW SERIAL# [id number] [facility] Influenza A Negative Negative [facility] Influenza B2 Negative Negative [facility] Influenza A B2 Note See Note [facility] Comment:The Cheung ID NOW In [...] LAB MICROBIOLOGY - GENERAL ORDERABLES Final Result [facility] [address] [place] [phone] * COVID-19 ID NOW (CHEUNG) (08/22/2025 1:43 PM EST) Only the most recent of2 resultswithin the time period is included. IDNOW SERIAL# [id number] [facility] COVID-19 TEST Negative Negative [facility] COVID-19 NOTE See Note [facility] Comment: Results are for the identification of SARS-CoV2 RNA. TheSARS-CoV2 RNA is generally detectable in respiratory samplesduring the acute phase of infection. Positive results areindicative of the presence of SARS-CoV-2 RNA; clinicalcorrelation with patient history and other diagnosticinformation is necessary to determine patient infectionstatus. Positive results do not rule out bacterial infectionor co- infection with other viruses.Testing facilities within the [place] and itsterritories are required to report [...] use by authorized laboratories.Testing performed on the [employer] ID NOW utilizing NAAT. 08/22/2025 1:43 PM EST 08/22/2025 1:54 PM EST [employer] External Data Provider LAB MOLECULAR [place] GNOSTICS ORDERABLES Final Result Performing Organization Address [facility] Co de Phone Number [facility] [address] [place] [phone] * Blood Culture (First) (08/22/2025 1:42 PM EST) Only the most recent of2 resultswithin the time period is included. Blood Venous blood specimen / Unknown 08/22/2025 1:42 PM EST 08/22/2025 1:53 PM EST Comment:Blood Narrative [facility] - 08/27/2025 3:53 PM EST Blood Culture (First) No growth after 5 days. Specimen Source: Blood Generic External Data Provider LAB MICROBIOLOGY - GENERAL ORDERABLES Final Result Performing Organization Address [facility]/ZIP Co de Phone Number [facility] [address] [place] [phone] * Blood Culture (Second) (08/22/2025 1:42 PM EST) Only the most recent of2 resultswithin the time period is included. Blood Venous blood specimen / Unknown 08/22/2025 1:42 PM EST 08/22/2025 1:57 PM EST Comment:Blood Narrative [facility] - 08/27/2025 3:57 PM EST Blood Culture (Second) No growth after 5 days. Specimen Source: Blood us Generic External Data Provider LAB MICROBIOLOGY - GENERAL ORDERABLES Final Result [facility] [address] [place] [phone] * (ABNORMAL) Complete Blood Count Manual Diff (08/22/2025 1:42 PM EST) White Blood Count 10.5 4.8 - 10.8 X10*3/uL [facility] Red Blood Count 5.28 4.60 - 5.80 X10*6/uL [facility] Hemoglobin 13.1(L) 14.0 - 18.0 g/dl [facility] Hematocrit 42.2 42.0 - 52.0 % [facility] Mean Corpuscular Volume 79.9(L) 80.0 - 98.0 fL [facility] Mean Corpuscular Hemoglobin 24.8(L) 27.0 - 33.0 pg [facility] Mean Corpuscular HGB Conc 31.0 31.0 - 36.0 g/dl [facility] Red Cell Distribution Width 22.8(H) 11.0 - 16.0 % [facility] Platelet Count 202 160 - 400 X10*3/uL [facility] Mean Platelet Volume 9.2(L) 9.4 - 12.4 fL [facility] NRBC Pct Auto 0.0 0.0 - 0.2 /100WBC [facility] NRBC Abs Auto 0.000 0.0 - 0.012 X10*3/uL [facility] Neutrophils % Manual 73 45 - 73 % [facility] Band Neutrophils Percent 5 3 - 5 % [facility] Lymphocytes Percent Manual 11(L) 20 - 40 % [facility] Atypical Lymphs Percent Manual 3 0 - 6 % [facility] Monocytes Percent Manual 4 2 - 11 % [facility] EOSINOPHILS % MANUAL 2 0 - 4 % [facility] Metamyelocytes % (Manual) 2 % [facility] NEUTROPHILS ABSOLUTE MANUAL 8.2 2.0 - 8.3 X10*3/uL [facility] LYMPHOCYTES ABSOLUTE MANUAL 1.2 1.2 - 4.9 X10*3/uL [facility] Atypical Lymph Absolute Manual 0.3 x10*3/uL [facility] MONOCYTES ABSOLUTE MANUAL 0.4 0.1 - 1.2 X10*3/uL [facility] EOSINOPHILS ABSOLUTE MANUAL 0.2 0.0 - 0.4 X10*3/uL [facility] Absolute Metamyelocytes 0.2 X10*3/uL [facility] Platelet Estimate NORMAL NORMAL [facility] Large Platelet [facility] Platelet Morphology Comment NOTED [facility] RBC Morphology NOTED [facility] Ovalocytes 1+ (5-14) /OIF [facility] 08/22/2025 1:42 PM EST 08/22/2025 1:53 PM EST us Generic External Data Provider LAB BLOOD ORDERAB LES Final Result [facility] [address] [place] [phone] * (ABNORMAL) CBC auto differential (08/22/2025 1:42 PM EST) Only the most recent of5 resultswithin the time period is included. White Blood Count 10.5 4.8 - 10.8 X10*3/uL [facility] Red Blood Count 5.28 4.60 - 5.80 X10*6/uL [facility] Hemoglobin 13.1(L) 14.0 - 18.0 g/dl [facility] Hematocrit 42.2 42.0 - 52.0 % [facility] Mean Corpuscular Volume 79.9(L) 80.0 - 98.0 fL [facility] Mean Corpuscular Hemoglobin 24.8(L) 27.0 - 33.0 pg [facility] Mean Corpuscular HGB Conc 31.0 31.0 - 36.0 g/dl [facility] Red Cell Distribution Width 22.8(H) 11.0 - 16.0 % [facility] Platelet Count 202 160 - 400 X10*3/uL [facility] Mean Platelet Volume 9.2(L) 9.4 - 12.4 fL [facility] Neutrophils Percent Auto 68.9 45 - 73 % [facility] Imm Gran Pct Auto 6.5(H) 0.0 - 0.4 % [facility] Lymphocytes Percent Auto 16.6(L) 20 - 40 % [facility] Monocytes Percent Auto 5.5 2 - 11 % [facility] Eosinophils Percent Auto 1.6 0 - 4 % [facility] Basophils Percent Auto 0.9 0 - 2 % [facility] NRBC Pct Auto 0.0 0.0 - 0.2 /100WBC [facility] Neutrophils Absolute Auto 7.3 2.0 - 8.3 x10*3/uL [facility] Imm Gran Abs Auto 0.68(H) 0.00 - 0.03 X10*3/uL [facility] Lymphocytes Absolute Auto 1.8 1.2 - 4.9 X10*3/uL [facility] Monocytes Absolute Auto 0.6 0.1 - 1.2 X10*3/uL [facility] Eosinophils Absolute Auto 0.2 0.0 - 0.4 X10*3/uL [facility] Basophils Absolute Auto 0.1 0.0 - 0.2 X10*3/uL [facility] NRBC Abs Auto 0.000 0.0 - 0.012 X10*3/uL [facility] 08/22/2025 1:42 PM EST 08/22/2025 1:53 PM EST us Generic External Data Provider LAB BLOOD ORDERAB LES Edited Result - Final Performing Organization Address [facility] Co de Phone Number [facility] [address] [place] [phone] * Lactic Acid (08/22/2025 1:42 PM EST) Only the most recent of2 resultswithin the time period is included. Lactic Acid 1.5 0.5 - 2.0 mmol/L [facility] 08/22/2025 1:42 PM EST 08/22/2025 1:53 PM EST Generic External Data Provider LAB BLOOD ORDERAB LES Final Result Performing Organization Address [facility] de Phone Number [facility] [address] [place] [phone] * (ABNORMAL) Comprehensive Metabolic Panel (08/22/2025 1:42 PM EST) Only the most recent of3 resultswithin the time period is included. Sodium 140 135 - 145 mmol/L [facility] Potassium 4.5 3.3 - 5.1 mmol/L [facility] Chloride 107 96 - 108 mmol/L [facility] Carbon Dioxide 25 22 - 29 mmol/L [facility] Anion Gap 13 12 - 20 [facility] Urea Nitrogen (BUN) 29(H) 9 - 16 mg/dL [facility] Creatinine, Serum 0.96 0.5 - 1.4 mg/dL [facility] Creatinine Clr Calc Pharmacy 114.9 [facility] Comment:eGFR (calculated fro m the MDRD study equation) and eCrCl(calculated from the Cockcroft-Gault equation) are based ondifferent parameters and may not yield comparable results.If eCrCl result is absurd, please check patient'sheight/weight. Estimated Glomerular Filt Rate >60 [facility] Comment:Chronic Kidney Disea se: Estimated GFR < 60 mL/min/1.14d0Tpnelq Kidney Disease: Estimated GFR < 15 mL/min/1.73m2 Glucose 136(H) 60 - 115 mg/dL [facility] Calcium 9.4 8.4 - 10.2 mg/dL [facility] Bilirubin, Total 0.7 0.0 - 1.0 mg/dL [facility] Aspartate Amino Transferase 42(H) 5 - 37 U/L [facility] Alanine Aminotransferase 60(H) 0 - 40 U/L [facility] Total Protein 7.8 6.5 - 8.0 g/dL [facility] Albumin Level 4.1 3.5 - 5.0 g/dL [facility] Alkaline Phosphatase 212(H) 39 - 117 U/L [facility] 08/22/2025 1:42 PM EST 08/22/2025 1:53 PM EST us Generic External Data Provider LAB BLOOD ORDERAB LES Final Result Performing Organization Address [facility] de Phone Number [facility] [address] [place] [phone] * Slide Review (08/11/2025 3:17 PM EDT) Only the most recent of2 resultswithin the time period is included. Slide Review VERIFIED [facility] 08/11/2025 3:17 PM EDT 08/11/2025 4:07 PM EDT us Krystyna Vaughn MD LAB BLOOD ORDERABLES Fin al Result Performing Organization Address [facility] Co de Phone Number [facility] [address] [place] [phone] * (ABNORMAL) Hepatitis Panel, General (08/11/2025 3:17 PM EDT) Hepatitis A IgM Nonreactive Nonreactive [facility] Comment:IgM antibodies to DARDEN V not detected; does not exclude earlyacute or recovered HAV infection. ~Hepatitis B Surface Antibody REACTIVE Nonreactive [facility] Comment:REACTIVE: > 11.99 mI U/mL Hepatitis B Core Antibody Nonreactive Nonreactive [facility] Hepatitis C Antibody Reactive(A) Nonreactive [facility] Comment:Presumptive evidence of antibodies to HCV. Hepatitis B Surface Ag Negative Negative [facility] Blood 08/11/2025 3:17 PM EDT 08/11/2025 6:18 PM EDT Krystyna Vaughn MD LAB BLOOD ORDERABLES Fin al Result Performing Organization Address City/[facility]/ZIP Co de Phone Number [facility] [address] [place] [phone] * Sed Rate by Modified Adalidergren (08/11/2025 3:17 PM EDT) Erythrocyte Sedimentation Rate 9 0 - 15 MM/HR [facility] Comment:Patients with polycy themia and many hemoglobin abnormalitiesmay have depressed sed rates whereas patients with anemiamay have elevated sed rates. Blood Venous blood specimen / Unknown 08/11/2025 3:17 PM EDT 08/11/2025 4:07 PM EDT Krystyna Vaughn MD LAB BLOOD ORDERABLES Fin al Result Performing Organization Address [facility] Co de Phone Number [facility] [address] [place] [phone] * Rheumatoid Factor (08/11/2025 3:17 PM EDT) Rheumatoid Factor <13.0 <15.0 IU/mL [facility] Blood Venous blood specimen / Unknown 08/11/2025 3:17 PM EDT 08/11/2025 6:18 PM EDT Krystyna Vaughn MD LAB BLOOD ORDERABLES Fin al Result Performing Organization Address [facility] Co de Phone Number [facility] [address] [place] [phone] * (ABNORMAL) C-reactive Protein (08/11/2025 3:17 PM EDT) C Reactive Protein 6.24(H) < or = 0.50 mg/dL [facility] Blood Venous blood specimen / Unknown 08/11/2025 3:17 PM EDT 08/11/2025 6:18 PM EDT Krystyna Vaughn MD LAB BLOOD ORDERABLES Fin al Result [facility] [address] [place] [phone] * KRYSTYNA Screen,IFA, with Reflex to Titer and Pattern (08/11/2025 3:17 PM EDT) Anti Nuclear Antibody Screen NEGATIVE NEGATIVE [facility] Comment:KRYSTYNA IFA is a first l [...] clinicallysuspected inflammatory myopathies.AC-0: NegativeInternational Consensus on KRYSTYNA Patterns(https://doi.org/10.1515/jpyj-6026-7723)For additional information, please refer tohttp://education.HiG[employer]/faq/JAP826(This link is being provided for informational/educational purposes only.)THIS TEST WAS PERFORMED AT:[employer] [place] [phone] DAVIS MD KRYSTYNA Titer TNP [facility] KRYSTYNA Pattern TNP [facility] KRYSTYNA Titer 2 TNP [facility] KRYSTYNA Pattern 2 TNP [facility] KRYSTYNA TITER 3 TNP [facility] KRYSTYNA PATTERN 3 HIP [facility] Blood Venous blood specimen / Unknown 08/11/2025 3:17 PM EDT 08/11/2025 6:18 PM EDT us Krystyna Vaughn MD LAB BLOOD ORDERABLES Fin al Result Performing Organization Address [facility] Co de Phone Number [facility] [address] [place] [phone] * (ABNORMAL) Uric acid (08/11/2025 3:17 PM EDT) Uric Acid 9.2(H) 3.4 - 7.0 mg/dL [facility] Blood Venous blood specimen / Unknown 08/11/2025 3:17 PM EDT 08/11/2025 6:18 PM EDT Krystyna Vaughn MD LAB BLOOD ORDERABLES Fin al Result Performing Organization Address [facility] Co de Phone Number [facility] [address] [place] [phone] * XR Fingers 2+ Views Left (08/11/2025 2:58 PM EDT) Anatomical Region Laterality Modality Upper Extremities, Fingers Left [facility] Imaging 08/11/2025 2:58 PM EDT Narrative 08/11/2025 3:06 PM EDT [address] [address] XRay Report Signed Patient: Norberto Marquez MR#: [id number] : 1990 Acct:[id number] Age/Sex: 34 / M ADM Date: 08/11/25 Loc: HO.HHCX Attending Dr: Krystyna Vaughn MD Ordering Physician: Krystyna Vaughn MD Date of Service: 08/11/25 Procedure(s): XR finger LT min 2V Accession Number(s): [id number] cc: Krystyan Vaughn MD Reason for Exam: left 2nd [...] 08/11/25 1503 DD/ 1458 TD/TT: 08/11/25 1448 [employer] Home [employer] Manager: MICHAEL Procedure Note Donotuseinterpreter, Image - 08/11/[address] [address] XRay Report Signed Patient: Zully Marquez#: [id number] : 1990Acct:[id number] Age/Sex: 34 / MADM Date: 08/11/25 Loc: HO.HHCX Attending Dr: Krystyna Vaughn MD Ordering Physician: Krystyna Vaughn MD Date of Service: 08/11/25 Procedure(s): XR finger LT min 2V Accession Number(s): [id number] cc: Krystyna Vaughn MD Reason for Exam: [...] 08/11/25 1503 DD/ 1458 TD/TT: 08/11/25 1448 [employer] Manager: MICHAEL Krystyna Vaughn MD IMG XR PROCEDURES Final Result * POCT Rapid COVID Ag (08/07/2025 9:54 AM EDT) Only the most recent of2 resultswithin the time period is included. [facility] Rapid COVID Ag Negative Swab 08/07/2025 9:54 AM EDT Result [facility] Isamar Adams MD POINT OF CARE TEST ENTER/EDIT OR DERABLES Final Result * POCT rapid strep A manually resulted (08/07/2025 9:54 AM EDT) Only the most recent of2 resultswithin the time period is included. [facility] Rapid Strep A Screen Negative Negative, None Detected Swab 08/07/2025 9:54 AM EDT Result [facility] Isamar Adams MD POINT OF CARE TEST ENTER/EDIT OR DERABLES Final Result * (ABNORMAL) Drug Monitoring, Panel 1, Screen, Urine (07/19/2025 8:51 PM EDT) Only the most recent of3 resultswithin the time period is included. [facility] Opiate Screen Urine Not Detected Not Detect [facility] Comment:Opiate cut-off is 30 0 ng/mL.Positive results are unconfirmed and should not be used fornon-medical purposes. Barbiturates, Urine Not Detected Not Detect [facility] Comment:Barbiturate cut-off is 200 ng/mL.Positive results are unconfirmed and should not be used fornon-medical purposes. Phencyclidine Screen Urine Not Detected Not Detect [facility] Comment:Phencyclidine cut-of f is 25 ng/mL.Positive results are unconfirmed and should not be used fornon-medical purposes. Amphetamine Screen Urine Not Detected Not Detect [facility] Comment:Amphetamine cut-off is 1000 ng/mL.Positive results are unconfirmed and should not be used fornon-medical purposes. Benzodiazepines Screen Urine Not Detected Not Detect [facility] Comment:Benzodiazepine cut-o ff is 200 ng/mL.Positive results are unconfirmed and should not be used fornon-medical purposes. Cocaine Screen Urine Not Detected Not Detect [facility] Comment:Cocaine cut-off is 3 00 ng/mL.Positive results are unconfirmed and should not be used fornon-medical purposes. Cannabinoid Screen Urine Not Detected Not Detect [facility] Comment:Cannabinoid cut-off is 50 ng/mL.Positive results are unconfirmed and should not be used fornon-medical purposes. Methadone Screen, Urine Positive(A) Not Detect ng/mL [facility] Comment:Methadone cut-off is 300 ng/mL.Positive results are unconfirmed and should not be used fornon-medical purposes. FENTANYL URINE Not Detected Not Detect [facility] Comment:Fentanyl cut-off is 1 ng/mL.Positive results are unconfirmed and should not be used fornon-medical purposes. Oxycodone Urine Screen Not Detected Not Detect ng/mL [facility] Comment:Oxycodone cut-off is 100 ng/mL.Positive results are unconfirmed and should not be used fornon-medical purposes. Buprenorphine Screen Not Detected Not Detect ng/mL [facility] Comment:Buprenorphine cut-of f is 5 ng/mL.Positive results are unconfirmed and should not be used fornon-medical purposes. 07/19/2025 8:51 PM EDT 07/19/2025 8:52 PM EDT us Generic External Data Provider LAB URINE ORDERAB LES Final Result [facility] [address] [place] [phone] * XR Chest 2 Views (07/19/2025 6:24 PM EDT) Anatomical Region Laterality Modality Chest Radiographic Ladan ging 07/19/2025 6:24 PM EDT Narrative 07/19/2025 6:26 PM EDT [place] [address] XRay Report Signed Patient: Norberto Marquez MR#: [id number] : 1990 Acct:[id number] Age/Sex: 34 / M ADM Date: 07/19/25 Loc: HO.ED Attending Dr: Ordering Physician: Alana Carreon Date of Service: 07/19/25 Procedure(s): XR chest 2V Accession Number(s): [id number] cc: [facility]; Alana Carreon Reason for Exam: SOB [...] in OV> 07/19/251824 DD/ 23 TD/TT: 07/19/251823 Mobile Home Park Manager: Procedure Note Pieter, Jonathan - 07/19/[address] [address] XRay Report Signed Patient: Marcelo MarquezR#: [id number] : 1990Acct:[id number] Age/Sex: 34 / MADM Date: 07/19/25 Loc: HO.ED Attending Dr: Ordering Physician: Alana Carreon Date of Service: 07/19/25 Procedure(s): XR chest 2V Accession Number(s): [id number] cc: [facility]; Alana Carreon Reason for Exam: SOB [...] in OV> 07/19/251824 DD/ 23 TD/TT: 07/19/251823 [employer] Home Park Manager: [facility] External Provider IMG XR PROCEDURES Final Result * High Sensitivity Troponin I (07/19/2025 6:22 PM EDT) Only the most recent of3 resultswithin the time period is included. TROPONIN I HIGH SENSITIVITY 3.3 <3.5 - 35.0 ng/L [facility] Comment:The [place] high sens itivity Troponin-I results should beused in conjunction with other diagnostic information suchas ECG, clinical observations and information, and patientsymptoms to aid in the diagnosis of [place]. 07/19/2025 6:22 PM EDT 07/19/2025 6:27 PM EDT Generic External Data Provider LAB BLOOD ORDERAB LES Final Result [facility] [address] [place] [phone] * Ethanol (07/19/2025 6:22 PM EDT) Only the most recent of2 resultswithin the time period is included. ETHANOL (MG/DL) IN SER/PLAS <10 mg/dL [facility] Comment:Serum/plasma ethanol results are to be used formedical/treatment purposes only. 07/19/2025 6:22 PM EDT 07/19/2025 6:27 PM EDT Generic External Data Provider LAB BLOOD ORDERAB LES Final Result Performing Organization Address [facility] Co de Phone Number [facility] [address] [place] [phone] * NT-proBNP (07/19/2025 6:22 PM EDT) NT-proBNP 251.0 <300 pg/mL [facility] Comment:Reference Range:Age Group (years) NT-proBNP (pg/ml) InterpretationAll <300 Negative: HF unlikelyFor patients presenting to the ED with clinical suspicion ofnew onset or worsening HF, see below:18 to <50 >299.9 to <450.0 Grayzone: Ifrwbooe58 to 75 >299.9 to <900.0 other causes of>75 >299.9 to <1800.0 NT-proBNP mlzuaxfvt69 to <50 >449.9 Positive: HF [id number] >899.9>75 >1799.9Note: Elevated NT-proBNP levels should be interpreted inthe context of other clinical information. 07/19/2025 6:22 PM EDT 07/19/2025 6:27 PM EDT Generic External Data Provider LAB BLOOD ORDERAB LES Final Result Performing Organization Address [facility] Co de Phone Number [facility] [address] [place] [phone] * Magnesium (07/19/2025 6:22 PM EDT) Only the most recent of3 resultswithin the time period is included. Magnesium 1.6 1.6 - 2.6 mg/dL [facility] 07/19/2025 6:22 PM EDT 07/19/2025 6:27 PM EDT us Generic External Data Provider LAB BLOOD ORDERAB LES Final Result Performing Organization Address [facility]/ZIP Co de Phone Number [facility] [address] [place] [phone] * (ABNORMAL) Ammonia, Plasma (07/19/2025 6:22 PM EDT) Ammonia (P) 59(H) 13 - 55 umol/L [facility] 07/19/2025 6:22 PM EDT 07/19/2025 6:27 PM EDT us Generic External Data Provider LAB BLOOD ORDERAB LES Final Result Performing Organization Address [facility] Phone Number [facility] [address] [place] [phone] * (ABNORMAL) Hepatic Function Panel (07/19/2025 6:22 PM EDT) Bilirubin, Total 0.9 0.0 - 1.0 mg/dL [facility] Bilirubin, Direct 0.5 0.0 - 0.5 mg/dL [facility] Aspartate Amino Transferase 94(H) 5 - 37 U/L [facility] Alanine Aminotransferase 81(H) 0 - 40 U/L [facility] Total Protein 7.1 6.5 - 8.0 g/dL [facility] Albumin Level 4.0 3.5 - 5.0 g/dL [facility] Alkaline Phosphatase 273(H) 39 - 117 U/L [facility] 07/19/2025 6:22 PM EDT 07/19/2025 6:27 PM EDT Generic External Data Provider LAB BLOOD ORDERAB LES Final Result Performing Organization Address [facility] Co de Phone Number [facility] [address] [place] [phone] * (ABNORMAL) Basic Metabolic Panel (07/19/2025 6:22 PM EDT) Sodium 138 135 - 145 mmol/L [facility] Potassium 4.5 3.3 - 5.1 mmol/L [facility] Chloride 109(H) 96 - 108 mmol/L [facility] Carbon Dioxide 21(L) 22 - 29 mmol/L [facility] Anion Gap 13 12 - 20 [facility] Urea Nitrogen (BUN) 21(H) 9 - 16 mg/dL [facility] Creatinine, Serum 0.79 0.5 - 1.4 mg/dL [facility] Creatinine Clr Calc Pharmacy 126.2 [facility] Comment:eGFR (calculated fro m the MDRD study equation) and eCrCl(calculated from the Cockcroft-Gault equation) are based ondifferent parameters and may not yield comparable results.If eCrCl result is absurd, please check patient'sheight/weight. Estimated Glomerular Filt Rate >60 [facility] Comment:Chronic Kidney Disea se: Estimated GFR < 60 mL/min/1.18j5Unehvz Kidney Disease: Estimated GFR < 15 mL/min/1.73m2 Glucose 98 60 - 115 mg/dL [facility] Calcium 9.6 8.4 - 10.2 mg/dL [facility] 07/19/2025 6:22 PM EDT 07/19/2025 6:27 PM EDT us Generic External Data Provider LAB BLOOD ORDERAB LES Final Result [facility] [address] [place] [phone] * Influenza B (ID NOW Rapid Molecular) (07/18/2025 12:57 PM EDT) Influenza B Negative Negative, Indeterminate [facility] Swab 07/18/2025 12:5 7 PM EDT Nighat Galloway MD POINT OF CARE TEST ENTER/E DIT ORDERABLES Final Result Performing Organization Address City/[facility]/ZIP Co de Phone Number [facility] [address] [place] [phone] * Influenza A (ID NOW Rapid Molecular) (07/18/2025 12:57 PM EDT) Influenza A Negative Negative, Indeterminate [facility] Swab 07/18/2025 12:5 7 PM EDT Nighat Galloway MD POINT OF CARE TEST ENTER/E DIT ORDERABLES Final Result Performing Organization Address [facility] Co de Phone Number [facility] [address] [place] [phone] * CT Head w/o Contrast (06/08/2025 10:44 AM EDT) Anatomical Region Laterality Modality Head, Neck Computed Tomogra phy 06/08/2025 10:4 4 AM EDT Narrative 06/08/2025 12:17 PM EDT [address] [address] [address] Scan Report Signed Patient: Norberto Marquez MR#: [id number] : 1990 Acct:[id number] Age/Sex: 34 / M ADM Date: 06/06/25 Loc: [facility] 471-[address]: David Altman MD Ordering Physician: David Altman MD Date of Service: 06/08/25 Procedure(s): CT head/brain wo IV con Accession Number(s): [id number] cc: [facility]; David Altman MD Report Number: [id number]: Total DLP = 1453.00 mGy-cm EXAMINATION: CT [...] 06/08/25 1215 DD/ 1044 TD/TT: 06/08/25 1158 Mobile Home Park Manager: Procedure Note Donotuseinterpreter, Image - 06/08/[address] [place] [address] [address] Scan Report Signed Patient: Zully Marquez#: [id number] : 1990Acct:[id number] Age/Sex: 34 / MADM Date: 06/06/25 Loc: [facility] 471-[address]: David Altman MD Ordering Physician: David Altman MD Date of Service: 06/08/25 Procedure(s): CT head/brain wo IV con Accession Number(s): [id number] cc: [facility]; David Altman MD Report Number: [id number]: Total DLP = 1453.00 mGy-cm EXAMINATION: CT [...] 06/08/25 1215 DD/ 1044 TD/TT: 06/08/25 1158 Mobile Home Park Manager: [facility] External Provider IMG CT PROCEDURES Final Result * CT Abdomen Pelvis w/o Contrast (06/07/2025 10:44 AM EDT) Anatomical Region Laterality Modality Body, Pelvis, Abdomen Computed T omography 06/07/2025 10:4 4 AM EDT Narrative 06/08/2025 12:28 PM EDT [place] [address] CT Scan Report Signed Patient: Norberto Marquez MR#: [id number] : 1990 Acct:[id number] Age/Sex: 34 / M ADM Date: 06/06/25 Loc: [facility] 471-[address]: David Altman MD Ordering Physician: Allison Mejía Date of Service: 06/07/25 Procedure(s): CT abdomen pelvis wo IV con Accession Number(s): [id number] cc: Allison Mejía; [facility] Report Number: [id number]: Total DLP = 1453.00 mGy-cm EXAMINATION: CT [...] 06/08/25 1224 DD/ 1044 TD/TT: 06/08/25 1158 Mobile Home Park Manager: Procedure Note Donotuseinterpreter, Image - 06/08/[address] [place] [address] [address] Scan Report Signed Patient: Zully Marquez#: [id number] : 1990Acct:[id number] Age/Sex: 34 / MADM Date: 06/06/25 Loc: [facility] 471-[address]: aDvid Altman MD [facility]ing Physician: [facility] Date of Service: 06/07/25 Procedure(s): CT abdomen pelvis wo IV con Accession Number(s): [id number] [facility]: [facility]; [facility] Report Number: [id number]: Total DLP = 1453.00 mGy-cm EXAMINATION: CT [...] 06/08/25 1224 DD/ 1044 TD/TT: 06/08/25 1158 Mobile Home Park Manager: [facility] External Provider IMG CT PROCEDURES Final Result * [facility] Venous Duplex Bilateral (06/07/2025 8:50 AM EDT) 06/07/2025 8:50 AM EDT Narrative [facility] - 06/07/2025 9:16 AM EDT [place] [address] Ultrasound Report Signed Patient: Norberto Marquez MR#: [id number] : 1990 Acct:[id number] Age/Sex: 34 / M ADM Date: 06/06/25 [facility]: David Altman MD Ordering Physician: Allison MejíaADRIEL Date of Service: 06/07/25 Procedure(s): US venous duplex LE Accession Number(s): [id number] cc: Allison Mejía [facility]; [facility] EXAMINATION: US TRIPLEX LOWER EXTREMITY, BILATERAL [...] OV> 06/07/25912 DD/ 0850 TD/TT: 06/07/25 0900 Mobile Home Park Manager: Procedure Note Donotuseinterpreter, Image - 06/07/2025 [place] [address] Ultrasound Report Signed Patient: Zully Marquez#: [id number] : 1990Acct:[id number] Age/Sex: 34 / MADM Date: 06/06/25 Loc: [facility]: David Altman MD [facility]ing Physician: [facility] Date of Service: 06/07/25 Procedure(s): US venous duplex LE BI Accession Number(s): [id number] [facility] EXAMINATION: US TRIPLEX LOWER EXTREMITY, BILATERAL [...] 06/07/25 0913 DD/ 0850 TD/TT: 06/07/25 0900 Mobile Home Park Manager: [facility] External Provider CV VASC ULAR PROCEDURES Final Result Performing Organization Address City/State/[facility] Co de Phone Number [facility] [address] [place] [address] * XR Tibia Fibula 2 Views Left (06/07/2025 7:15 AM EDT) Anatomical Region Laterality Modality Lower Extremities, Lower Leg Left Rad iographic Imaging 06/07/2025 7:15 AM EDT Narrative 06/07/2025 8:29 AM EDT [place] [address] XRay Report Signed Patient: Norberto Marquez MR#: [id number] : 1990 Acct:[id number] Age/Sex: 34 / M ADM Date: 06/06/25 [facility]: David Altman MD Ordering Physician: Allison Mejía Date of Service: 06/07/25 Procedure(s): XR tibia fibula LT 2V Accession Number(s): [id number] cc: Allison Mejía [facility] EXAMINATION: XR TIBIA AND FIBULA, LEFT [...] OV> 06/07/25825 DD/ 0715 TD/TT: 06/07/25 0732 Mobile Home Park Manager: Procedure Note Donotuseinterpreter, Image - 06/07/[address] [address] XRay Report Signed Patient: Zully Marquez#: [id number] : 1990Acct:[id number] Age/Sex: 34 / MADM Date: 06/06/25 Loc: [facility]: David Altman MD Ordering Physician: Allison Mejía Date of Service: 06/07/25 Procedure(s): XR tibia fibula LT 2V Accession Number(s): [id number] cc: Allison Mejía [facility]; [facility] EXAMINATION: XR TIBIA AND FIBULA, LEFT [...] OV> 06/07/25 08 DD/ TD/TT: 06/07/25 0732 Mobile Home Park Manager: [facility] External Provider IMG XR PROCEDURES Final Result * (ABNORMAL) Urinalysis, Complete, with Reflex to Culture (06/06/2025 9:11 PM EDT) Only the most recent of2 resultswithin the time period is included. Color Urine Yellow [facility] Appearance Urine Clear [facility] PH 6.0 5.0 - 9.0 [facility] Glucose Urine UA Negative Negative mg/dL [facility] Urine Blood Trace(A) Negative [facility] Specific [place] - Urine 1.015 1.005 - 1.025 [facility] Urine Protein Negative Neg-Trace mg/dL [facility] Urine Ketones Negative Negative mg/dL [facility] Nitrite Urine Negative Negative [facility] Leukocyte Esterase Urine Negative Negative [facility] RBC Urine 6-10(A) 0 - 2 /HPF [facility] Urine WBC 0-5 0 - 5 /HPF [facility] Urine Squamous Epithelial Cell 0-2 0 - 2 /HPF [facility] Urine Bacteria None Seen None Seen [facility] Hyaline Casts, Urine 0-2 0 - 2 /LPF [facility] 06/06/2025 9:11 PM EDT 06/06/2025 9:15 PM EDT Narrative [facility] - 06/06/2025 10:06 PM EDT [id number], Clean Catch us Generic External Data Provider LAB URINE ORDERAB LES Final Result Performing Organization Address City/State/[facility] Co de Phone Number [facility] [address] [place] [phone] * D Dimer High Sensitivity (06/06/2025 3:18 PM EDT) Only the most recent of2 resultswithin the time period is included. D Dimer High Sensitivity 1,296 NG/ML [facility] Comment:D-DIMER HS REFERENCE RANGENote: Our [...] ORDERAB LES Final Result Performing Organization Address [facility] Co de Phone Number [facility] [address] [place] [phone] * (ABNORMAL) Prothrombin Time-INR (06/06/2025 3:18 PM EDT) Prothrombin Time 25.0(H) 10.9 - 12.4 SEC [facility] INTERNATIONAL NORM RATIO 2.2(H) 0.9 - 1.1 [facility] Comment:INTERNATIONAL NORMAL IZED RATIO (INR) [...] 3:18 PM EDT 06/06/2025 3:25 PM EDT [employer] External Data Provider LAB BLOOD ORDERAB LES Final Result Performing Organization Address [facility] Co de Phone Number [facility] [address] [place] [phone] * Glucose, Whole Blood (06/04/2025 7:02 PM EDT) Only the most recent of2 resultswithin the time period is included. Glucose, Whole Blood 115 60 - 115 mg/dL [facility] Comment:METER #: [id number] 06/04/2025 7:02 PM EDT 06/04/2025 7:06 PM EDT us Generic External Data Provider LAB BLOOD ORDERAB LES Final Result Performing Organization Address City/[facility] Co de Phone Number [facility] [address] [place] [phone] * (ABNORMAL) Creatine Kinase, Total (06/04/2025 4:39 PM EDT) Creatine Kinase Total 504(H) 38 - 174 U/L [facility] 06/04/2025 4:39 PM EDT 06/04/2025 4:46 PM EDT Generic External Data Provider LAB BLOOD ORDERAB LES Final Result Performing Organization Address [facility] de Phone Number [facility] [address] [place] [phone] * Lower Extremity Venous Duplex (06/04/2025 4:06 PM EDT) 06/04/2025 4:06 PM EDT Narrative [facility] - 06/05/2025 8:20 AM EDT [address] [address] Ultrasound Report Signed Patient: Norberto Marquez MR#: [id number] : 1990 Acct:[id number] Age/Sex: 34 / M ADM Date: 06/04/25 Loc: .ED Attending Dr: Ordering Physician: Fartun Farris Date of Service: 06/04/25 Procedure(s): US venous duplex LE Accession Number(s): [id number] cc: [facility]; Fartun Farris EXAMINATION: US LOWER EXTREMITY [...] 06/05/25 08 DD/ 1606 TD/TT: 06/04/25 1612 Mobile Home Park Manager: Procedure Note Donotuseinterpreter, Image - 06/05/2025 [place] [address] Ultrasound Report Signed Patient: Zully Marquez#: [id number] : 1990Acct:[id number] Age/Sex: 34 / MADM Date: 06/04/25 Loc: .ED Attending Dr: Ordering Physician: Fartun Farris Date of Service: 06/04/25 Procedure(s): US venous duplex LE LT Accession Number(s): [id number] cc: [facility]; Fartun Farris EXAMINATION: US LOWER EXTREMITY [...] 06/05/25 0817 DD/ 1606 TD/TT: 06/04/25 1612 Mobile Home Park Manager: [facility] External Provider CV VASC ULAR PROCEDURES Final Result Performing Organization Address City/[facility]/ZIP Co de Phone Number [facility] [address] [place] [address] * HIV-1/2 Antigen and Antibodies, Fourth Generation, with Reflexes (04/08/2024 11:52 AM EDT) Pathologist [facility] HIV AB/AG Nonreactive Nonreactive [facility] Comment:HIV-1 p24 Ag and/or HIV-1/HIV-2 Ab not detected.A test result that is nonreactive does not exclude thepossibility of exposure to or infection with HIV-1 and/orHIV-2. Nonreactive results in this assay for individualswith prior exposure to HIV-1 and/or HIV-2 may be due toantigen and antibody levels that are below the limit ofdetection of this assay.The The [employer] HIV Ag/Ab Combo assay result andsupplemental assay results should be interpreted inconjunction with the patient's clinical presentation,history and other laboratory results. If the results areinconsistent with clinical evidence, additional testing issuggested to confirm the result. Blood Venous blood specimen / Unknown 04/08/2024 11:52 AM EDT 04/08/2024 12:58 PM EDT Alba So NP LAB BLOOD ORDERABLES Final Resu lt Performing Organization Address City/[facility]/ZIP Co de Phone Number [facility] [address] [place] [phone] from Last 3 Months or Most Recently Relevant to Health Maintenance Insurance [facility] STAND[facility] Care Teams Lockstitch Waistline Joiner Relationship Specialty Start Date End Date Alba So NP [address] [place] [address] PCP - General Family Medicine 04/14/24
== END 2025-08-29 11:16 | disposition home or self-care (01) ==
LOC: HO.HVS 10:46
PROVIDERS: Visit Provider Surgery Vascular Surgery
DX: I83.12 Varicose veins of left lower extremity with inflammation (principal)
CPT/HCPCS: 99214

== ENCOUNTER → 2025-08-29 10:45 | Outpatient (BNVA) | payer MEDICAID, SELFPAY | PROVIDERS: Visit Provider Surgery Vascular Surgery | DX: I83.12 Varicose veins of left lower extremity with inflammation (principal) | CPT/HCPCS: 99212 ==

== ENCOUNTER 2025-09-13 13:20 | Outpatient (REF) | payer MEDICAID, SELFPAY ==
--- OUTSIDE RECORDS SUMMARY | 2025-09-13 16:27 | XMS_ITS | Encounter Summary ---
Author Organization [facility] Address [address] [place] [phone] Phone Care Team Providers Care Firer Low Pressure Name Role Phone Pcp, Unknown Primary Care Provider Unavailabl e Encounter Details Date Type Department Care Team (Late st Contact Info) Description 09/16/2023 Procedure Pass [facility]oscopy Admitting Dept Virtual Department [address] [place] [address] Social History Tobacco Use Types Packs/Day Years [...] on filedocumented in this encounter Care Teams Firer Low Pressure Relationship Specialty Start Date End Date Pcp, Unknown PCP - General 12/06/19 documented as of this encounter Additional Source Comments The information contained in this document represents components of the legal health record. It is not the complete legal health record.[facility]
--- OUTSIDE RECORDS SUMMARY | 2025-09-13 16:27 | XMS_ITS | Encounter Summary ---
Author Organization [employer] Address [address] [place] [address] Care Team Providers Care Box Storage Worker Name Role Phone Nirali LottP Primary Care Provider [phone] Alba So NP Primary Care Provider [phone] Reason for Visit * Reason Onset Date Comments PT1 10/02/2023 Encounter Details Date Type Department Care Team ([facility] st Contact Info) Description 10/02/2023 Telephone [facility] MEDICINE [address] [place] [phone] Nirali Lott FNP [address] [place], [place] [phone] PT1 Social History Tobacco Use Types Packs/Day [...] 10/02/2023 11:00 AM EST PT-1 Request Number [id number] is Pending * Telephone Encounter - Christine Mak - 10/02/2023 10:32 AM EST Tc alanna Cruz with ICP requesting PT1 transportation. Date: 10/20/2022 Time: 10:15 Visits: 12 a year Address: [address] [place] [address] [facility] Chair: n/a Automatic Corn Grinder Operator Needed: n/a documented in this encounter Plan of Treatment Upcoming Encounters Date Type Department Care Team (Late st Contact Info) Description 09/25/2025 2:00 PM EST Office Visit [facility] [address] [place] [address] Alba So NP [address] [place] [address] documented as of this encounter Visit Diagnoses Not on filedocumented in this encounter Additional Health Concerns Assessment Noted Time PHQ-9 Depression Total Score: 0 06/03/20 23 10:05 AM EDT documented as of this encounter Care Teams Box Storage Worker Relationship Specialty Start Date End Date Nirali Lott FNP [address] [place] [address] PCP - General Family Medicine 07/09/23 04/13/24 Alba So NP [address] [place] [phone] PCP - General Family Medicine 04/14/24 documented as of this encounter
--- OUTSIDE RECORDS SUMMARY | 2025-09-13 16:27 | XMS_ITS | Encounter Summary ---
Author Organization [employer] Address [address] [facility] 7t [place] [address] Care Team Providers Care Jewelry Polisher Name Role Phone Nirali LottP Primary Care Provider [phone] Alba So NP Primary Care Provider [phone] Reason for Visit * Reason Onset Date Comments Referral 10/16/2023 Encounter Details Date Type Department Care Team ([facility] st Contact Info) Description 10/16/2023 Telephone [facility] MEDICINE [address] [place] [address] Nirali Lott FNP [address] [place] [address] Referral Social History Tobacco Use Types Packs/Day [...] - 10/16/2023 10:22 AM EST Tc from [facility] never received referral. documented in this encounter Plan of Treatment Upcoming Encounters Date Type Department Care Team (Late st Contact Info) Description 09/25/2025 2:00 PM EST Office Visit [facility] MEDICINE [address] [place] [address] Alba So NP [address] [place] [address] documented as of this encounter Visit Diagnoses Not on filedocumented in this encounter Additional Health Concerns Assessment Noted Time PHQ-9 Depression Total Score: 0 06/03/20 23 10:05 AM EDT documented as of this encounter Care Teams Jewelry Polisher Relationship Specialty Start Date End Date Nirali Lott FNP [address] [place] [address] PCP - General Family Medicine 07/09/23 04/13/24 Alba So NP [address] [place] [address] PCP - General Family Medicine 04/14/24 documented as of this encounter
--- OUTSIDE RECORDS SUMMARY | 2025-09-13 16:27 | XMS_ITS | Encounter Summary ---
Author Organization [facility] Address [address] [facility] [address] [place] [address] Phone Care Team Providers Care Parking Assistant Name Role Phone Pcp, Unknown Primary Care Provider Unavailabl e Encounter Details Date Type Department Care Team (Late st Contact Info) Description 02/14/2020 Transcribe Orders [facility] Specimen Processing [address] [place] [address] Donell Villalobos, DO [address] [facility] [place] [address] [place] [address] [email or web address] Encounter for health examination of prisoner (Primary [...] ALKALINE PHOSPHATASE 138(H) 39 - 117 U/L [facility] TOTAL BILIRUBIN 0.5 0.0 - 1.2 mg/dL [facility] DIRECT BILIRUBIN 0.2 0 - 0.3 mg/dL [facility] Bilirubin (Indirect) 0.3 0 - 1.5 mg/dL [facility] AST 114(H) 0 - 37 U/L [facility] ALT 235(H) 0 - 40 U/L [facility] TOTAL PROTEIN 6.8 6.5 - 8.0 g/dL [facility] ALBUMIN 4.1 3.9 - 4.8 g/dL [facility] GLOBULIN 2.7 1 - 4.8 g/dL [facility] A/G Ratio 1.52 1.00 - 4.80 RATIO [facility] Blood 02/15/2020 10:0 4 AM EDT 02/15/2020 11:32 AM EDT us Donell A Bigda DO LAB BLOOD BKR ORDERABLES Final R esult Performing Organization Address City/State/[facility] Co de Phone Number [facility] [address] [place] [address] documented in this encounter Visit Diagnoses Diagnosis Encounter for health examination of prisoner- Primary documented in this encounter Additional Health Concerns Infection Onset Date Last Indicated Resolved Time CoV-Risk 03/27/2023 03/27/2023 04/07/2023 1:22 AM EDT documented as of this encounter Care Teams Parking Assistant Relationship Specialty Start Date End Date Pcp, Unknown PCP - General 12/06/19 documented as of this encounter Additional Source Comments The information contained in this document represents components of the legal health record. It is not the complete legal health record.[facility]
--- OUTSIDE RECORDS SUMMARY | 2025-09-13 16:27 | XMS_ITS | Encounter Summary ---
Author Organization [facility] Address [address] [place] [address] Phone Care Team Providers Care Facetor Name Role Phone Pcp, Unknown Primary Care Provider Unavailabl e Encounter Details Date Type Department Care Team (Late st Contact Info) Description 04/08/2023 Transcribe Orders [facility] Specimen Processing [address] [place] [address] Martinez Rendon MD [address] [facility], [address], [address] [place] [address] [email or web address] Congestive heart failure, unspecified HF [...] 7:23 PM EDT Aisha Zelaya, RN * [place] Suicide Severity Rating Scale (Screener/Recent Self-Report) Question [...] EDT) SODIUM 140 133 - 146 mmol/L [facility] POTASSIUM 3.8 3.3 - 5.1 mmol/L [facility] CHLORIDE 108 96 - 108 mmol/L [facility] CO2 18(L) 21 - 35 mmol/L [facility] BUN 9 6 - 19 mg/dL [facility] CREATININE 0.70 0.5 - 1.5 mg/dL [facility] GLUCOSE 78 70 - 99 mg/dL [facility] ALBUMIN 3.7(L) 3.9 - 4.8 g/dL [facility] TOTAL PROTEIN 6.9 6.5 - 8.0 g/dL [facility] CALCIUM 8.9 8.4 - 10.3 mg/dL [facility] ALKALINE PHOSPHATASE 144(H) 39 - 117 U/L [facility] TOTAL BILIRUBIN 1.5(H) 0.0 - 1.2 mg/dL [facility] AST 13 0 - 37 U/L [facility] ALT 7 0 - 40 U/L [facility] GLOBULIN 3.2 1 - 4.8 g/dL [facility] EGFR >120 >59 mL/min/1.7 3m2 [facility] Comment:Estimated glomerular filtration rate calculated using the CKD-EPI refit equation. ANION GAP 18 10 - 20 mmol/L [facility] 04/08/2023 5:55 AM EDT 04/08/2023 8:22 AM EDT us Martinez Rendon MD LAB BLOOD BKR ORDERABLES Final R esult [address] [address] documented in this encounter Visit Diagnoses Diagnosis Congestive heart failure, unspecified HF chronicity, unspecified heart failure type- Primary documented in this encounter Care Teams Facetor Relationship Specialty Start Date End Date Pcp, Unknown PCP - General 12/06/19 documented as of this encounter Additional Source Comments The information contained in this document represents components of the legal health record. It is not the complete legal health record.[facility]
--- OUTSIDE RECORDS SUMMARY | 2025-09-13 16:27 | XMS_ITS | Encounter Summary ---
Author Organization [employer] Address [address] [facility] [facility] [address] 7t [place] [address] Care Team Providers Care Pipe Insulator Name Role Phone Nirali Lott Primary Care Provider [phone] Alba So NP Primary Care Provider [phone] Encounter Details Date Type Department Care Team (Late st Contact Info) Description 10/27/2023 Orders Only [facility] CHC MED & PEDS [address] [place] [address] Nirali Lott FNP [address] [place] [address] Infective endocarditis of tricuspid valve (Primary Dx) [...] Description 09/25/2025 2:00 PM EST Office Visit [facility] MEDICINE [address] [place], [place] [phone] Alba So NP 230 [place] [address] documented as of this encounter Procedures Procedure Name Priority Date/Time Associated Diagnosis Comments CT LIVER 3 PHASE Routine 10/27/2023 4:35 PM EST documented in this encounter Results * CT liver 3 phase (10/27/2023 4:35 PM EST) Anatomical Region Laterality Modality Liver Computed Tomogra phy 10/27/2023 4:35 PM EST Narrative 11/02/2023 11:06 AM EST [address] [address] [address] Scan Report Signed Patient: Norberto Marquez MR#: [id number] : 1990 Acct:[id number] Age/Sex: 33 / M ADM Date: 10/27/23 Loc: HO.CT Attending Dr: Randa Chisholm MD Ordering Physician: Randa Chisholm MD Date of Service: 10/27/23 Procedure(s): CT liver 3 phase Accession Number(s): [id number] cc: Randa Chisholm MD; [facility] EXAMINATION: CT ABDOMEN without and WITH [...] in OV> 11/02/23 1101 DD/ 1635 TD/TT: Digital Project Coordinator: SS Procedure Note Donotuseinterpreter, Image - 11/03/[address] [place] [address] [address] Scan Report Signed Patient: Zully Marquez#: [id number] : 1990Acct:[id number] Age/Sex: 33 / MADM Date: 10/27/23 Loc: HO.CT Attending Dr: Randa Chisholm MD Ordering Physician: Randa Chisholm MD Date of Service: 10/27/23 Procedure(s): CT liver 3 phase Accession Number(s): [id number] cc: Randa Chisholm MD; [facility] EXAMINATION: CT ABDOMEN without and WITH [...] in OV> 11/02/23 1101 DD/ 1635 TD/TT: Digital Project Coordinator: ELIEZER [facility] External Provider IMG CT PROCEDURES Final Result documented in this encounter Visit Diagnoses Diagnosis Infective endocarditis of tricuspid valve- Primary documented in this encounter Additional Health Concerns Assessment Noted Time PHQ-9 Depression Total Score: 0 06/03/20 10:05 AM EDT documented as of this encounter Care Teams Pipe Insulator Relationship Specialty Start Date End Date Nirali Lott FNP [address] [place] [address] PCP - General Family Medicine 07/09/23 04/13/24 Alba So NP [address] [place] [address] PCP - General Family Medicine 04/14/24 documented as of this encounter
--- OUTSIDE RECORDS SUMMARY | 2025-09-13 16:27 | XMS_ITS | Encounter Summary ---
Author Organization [employer] Address [address] [facility] 7t [place] [address] Care Team Providers Care Insurance Adviser Name Role Phone Nirali LottP Primary Care Provider [phone] Alba So NP Primary Care Provider [phone] Reason for Visit * Reason Onset Date Comments Hospital Follow-up 04/05/2024 Encounter Details Date Type Department Care Team ([facility] st Contact Info) Description 04/05/2024 Telephone [facility] MEDICINE [address] [place] [address] Nirali Lott FNP [address] [place] [address] Hospital Follow-up Social History Tobacco Use Types [...] pt requesting a HDF appt. Hospital: [facility] Date of admission: 03/30 Discharge date: 04/01 Diagnosed: Chest Pain documented in this encounter Plan of Treatment Upcoming Encounters Date Type Department Care Team (Late st Contact Info) Description 09/25/2025 2:00 PM EST Office Visit [facility] MEDICINE [address] [place] [address] Alba So NP [address] [place] [address] documented as of this encounter Visit Diagnoses Not on filedocumented in this encounter Additional Health Concerns Assessment Noted Time PHQ-9 Depression Total Score: 0 06/03/20 10:05 AM EDT documented as of this encounter Care Teams Insurance Adviser Relationship Specialty Start Date End Date Nirali Lott FNP [address] [place] [address] PCP - General Family Medicine 07/09/23 04/13/24 Alba So NP [address] [place] [address] PCP - General Family Medicine 04/14/24 documented as of this encounter
--- OUTSIDE RECORDS SUMMARY | 2025-09-13 16:27 | XMS_ITS | Encounter Summary ---
Author Organization [employer] Address [address] [facility] 7t [place] [address] Care Team Providers Care Edge Banding Machine Offbearer Name Role Phone Nirali Lott Primary Care Provider [phone] Alba So NP Primary Care Provider [phone] Reason for Referral * Consultation (Routine) - Closed Specialty Diagnoses / Procedures Referred By Contruslan t Referred To Contact Hand Surgery Diagnoses Pain in finger of left hand Nirali Lott FNP [address] [place] [address] Phone: tel: fax: [facility] [address] [place] [address] [address] [place] [address] Phone: tel: Referral ID Status Reason Start Date Expiration Date V isits Requested Visits Authorized [id number] Closed Specialty Services Required 12/23/2023 12/22/2024 6 6 Encounter Details Date Type Department Care Team (Late st Contact Info) Description 12/23/2023 Orders Only [facility] CHC MED & PEDS [address] [place], [place] [phone] Nirali Lott FNP [address] [place], [place] [phone] Pain in finger of left hand (Primary [...] Visit [facility] MEDICINE [address] [place] [address] Alba So NP [address] [place] [address] Scheduled Referrals Name Type Priority Associated Diagnoses [...] documented as of this encounter Care Teams Edge Banding Machine Offbearer Relationship Specialty Start Date End Date Nirali Lott FNP [address] [place] [address] PCP - General Family Medicine 07/09/23 04/13/24 Alba So NP [address] [place] [address] PCP - General Family Medicine 04/14/24 documented as of this encounter
--- OUTSIDE RECORDS SUMMARY | 2025-09-13 16:27 | XMS_ITS | Encounter Summary ---
Author Organization [employer] Address [address] [facility] 7t [place] [address] Care Team Providers Care Cut Roll Machine Operator Name Role Phone Alba So GENEVA Primary Care Provider [phone] Encounter Details Date Type Department Care Team (Late st Contact Info) Description 04/26/2024 Orders Only [facility] MEDICINE [address] [place] [address] Varun Givens, PharmD [address] [place] [address] Social History Tobacco Use Types Packs/Day Years [...] Description 09/25/2025 2:00 PM EST Office Visit [facility] MEDICINE [address] [place] [address] Alba So NP [address] [place] [address] documented as of this encounter Visit Diagnoses Not on filedocumented in this encounter Additional Health Concerns Assessment Noted Time PHQ-9 Depression Total Score: 0 06/03/20 23 10:05 AM EDT documented as of this encounter Care Teams Cut Roll Machine Operator Relationship Specialty Start Date End Date Alba So NP [address] [place] [address] PCP - General Family Medicine 04/14/24 documented as of this encounter
--- OUTSIDE RECORDS SUMMARY | 2025-09-13 16:27 | XMS_ITS | Encounter Summary ---
Author Organization [facility] Address [address] [place] [address] Phone Care Team Providers Care Steam Train Driver Name Role Phone Pcp, Unknown Primary Care Provider Unavailabl e Encounter Details Date Type Department Care Team (Late st Contact Info) Description 10/28/2023 Procedure Pass [facility] Endoscopy Admitting Dept Virtual Department [address] [place] [address] Social History Tobacco Use Types Packs/Day Years [...] on filedocumented in this encounter Care Teams Steam Train Driver Relationship Specialty Start Date End Date Pcp, Unknown PCP - General 12/06/19 documented as of this encounter Additional Source Comments The information contained in this document represents components of the legal health record. It is not the complete legal health record.[facility]
--- OUTSIDE RECORDS SUMMARY | 2025-09-13 16:28 | XMS_ITS | Encounter Summary ---
Author Organization [employer] Address [address] [facility] 7t [place] [address] Care Team Providers Care Machine Cleaner Name Role Phone Alba So NP Primary Care Provider [phone] Reason for Visit * Reason Comments Pre-visit Planning SDOH screening was c ompleted on 01/19/2025 Encounter Details Date Type Department Care Team ([facility] Contact Info) Description 09/13/2025 Patient Outreach [facility] MEDICINE [address] [place] [address] Alba So NP [address] [place] [address] Pre-visit Planning (SDOH screening was completed on 01/19/2025) Social History Tobacco Use Types Packs/Day Years [...] as of this encounter Progress Notes * Fransisca Gallegos - 09/13/2025 12:41 PM EST CC Fransisca Wilson placed successful outbound call to patient for pre-visit planning. Patient name and confirmed by mother. Patient's mother confirms appt date and time, and has transportation arrangements. Mother's biggest concern for appointment at this time is no concerns. Appropriate screenings completed in anticipation of appointment. documented in this encounter Plan of Treatment Upcoming Encounters Date Type Department Care Team (Late st Contact Info) Description 09/25/2025 2:00 PM EST Office Visit [facility] MEDICINE [address] [place] [address] Alba So NP [address] [place] [address] documented as of this encounter Visit Diagnoses Not on filedocumented in this encounter Additional Health Concerns Assessment Noted Time PHQ-9 Depression Total Score: 18 024 11:56 AM EST documented as of this encounter Care Teams Machine Cleaner Relationship Specialty Start Date End Date Alba So NP [address] [place] [address] PCP - General Family Medicine 04/14/24 documented as of this encounter
--- OUTSIDE RECORDS SUMMARY | 2025-09-13 16:28 | XMS_ITS | Clinical Summary ---
Author Organization [facility] Address [address] [place] [address], [place] [address] Care Team Providers Care Wood Room Supervisor Name Role Phone Unavailable Primary Care Provider [...]
--- OUTSIDE RECORDS SUMMARY | 2025-09-13 16:28 | XMS_ITS | Encounter Summary ---
Author Organization [employer] Address [address] [facility] 7t [place] [address] Care Team Providers Care Facilities Clerk Name Role Phone Mack Jin WHITTEN Primary Care Provider Unavail able Nirali Lott Primary Care Provider [phone] Alba So NP Primary Care Provider [phone] Encounter Details Date Type Department Care Team ([facility] Contact Info) Description 06/08/2023 Orders Only [facility] CHC MED & PEDS [address] [place], [place] [phone] Nirali Lott FNP [address] [place] [address] Chronic hepatitis C without hepatic coma (CMS/HCC) [...] Upcoming Encounters Date Type Department Care Team ([facility] Contact Info) Description 09/25/2025 2:00 PM EST Office Visit [facility] MEDICINE [address] [place] [address] Alba So NP [address] [place] [address] documented as of this encounter Visit Diagnoses Diagnosis Chronic hepatitis C without hepatic coma (HCC)- Primary documented in this encounter Additional Health Concerns Assessment Noted Time PHQ-9 Depression Total Score: 0 06/03/20 10:05 AM EDT documented as of this encounter Care Teams Facilities Clerk Relationship Specialty Start Date End Date Jin Mack AGNP PCP - General Family Medicine 04/24/23 07/08/23 Nirali Lott FNP [address] [place] [address] PCP - General Family Medicine 07/09/23 04/13/24 Alba So NP [address] [place] [address] PCP - General Family Medicine 04/14/24 documented as of this encounter
--- OUTSIDE RECORDS SUMMARY | 2025-09-13 16:28 | XMS_ITS | Encounter Summary ---
Author Organization [employer] Address [address] [facility] 7t [place] [address] Care Team Providers Care Helicopter Dispatcher Name Role Phone Alba So NP Primary Care Provider [phone] Encounter Details Date Type Department Care Team ([facility] st Contact Info) Description 07/20/2025 Results Follow-Up [facility] MEDICINE [address] [place] [address] Alba So NP [address] [place] [address] XR Chest 2 Views Social History Tobacco [...] [facility] [address] [place] [address] Alba So NP [address] [place] [address] documented as of this encounter Visit Diagnoses Not on filedocumented in this encounter Additional Health Concerns Assessment Noted Time PHQ-9 Depression Total Score: 18 024 11:56 AM EST documented as of this encounter Care Teams Helicopter Dispatcher Relationship Specialty Start Date End Date Alba So NP [address] [place] [address] PCP - General Family Medicine 04/14/24 documented as of this encounter
--- OUTSIDE RECORDS SUMMARY | 2025-09-13 16:28 | XMS_ITS | Clinical Summary ---
Author Organization [facility] Address [address] [place] [address] Phone Care Team Providers Care Order Entry Representative Name Role Phone Pcp, Unknown Primary Care [...] SODIUM 140 133 - 146 mmol/L [facility] POTASSIUM 4.2 3.3 - 5.1 mmol/L [facility] CHLORIDE 109(H) 96 - 108 mmol/L [facility] CO2 19(L) 21 - 35 mmol/L [facility] BUN 10 6 - 19 mg/dL [facility] CREATININE 0.80 0.5 - 1.5 mg/dL [facility] GLUCOSE 67(L) 70 - 99 mg/dL [facility] ALBUMIN 3.7(L) 3.9 - 4.8 g/dL [facility] TOTAL PROTEIN 6.7 6.5 - 8.0 g/dL [facility] CALCIUM 8.8 8.4 - 10.3 mg/dL [facility] ALKALINE PHOSPHATASE 137(H) 39 - 117 U/L [facility] TOTAL BILIRUBIN 1.3(H) 0.0 - 1.2 mg/dL [facility] AST 13 0 - 37 U/L [facility] ALT 6 0 - 40 U/L [facility] GLOBULIN 3.0 1 - 4.8 g/dL [facility] EGFR 119 >59 mL/min/1.7 3m2 [facility] Comment:Estimated glomerular filtration rate calculated using the CKD-EPI refit equation. ANION GAP 16 10 - 20 mmol/L [facility] Blood 04/13/2023 6:42 AM EDT 04/13/2023 11:39 AM EDT us Martinez Rendon MD LAB BLOOD BKR ORDERABLES Final R esult [facility] [address] [place] [address] from Last 3 Months or Most Recently Relevant to Health Maintenance Insurance C3 ACO C3 ACO C3 ACO C3 ACO C3 ACO C3 ACO Care Teams Order Entry Representative Relationship Specialty Start Date End Date Pcp, Unknown PCP - General 12/06/19 Additional Source Comments The information contained in this document represents components of the legal health record. It is not the complete legal health record.[facility]
--- OUTSIDE RECORDS SUMMARY | 2025-09-13 16:28 | XMS_ITS | Encounter Summary ---
Author Organization [employer] Address [address] [facility] 7t [place] [address] Care Team Providers Care Coconut Jelly Roller Name Role Phone Alba So NP Primary Care Provider [phone] Encounter Details Date Type Department Care Team (Late st Contact Info) Description 12/21/2024 Orders Only [facility] MEDICINE [address] [place] [address] Alba So NP [address] [place] [address] Social History Tobacco Use Types Packs/Day Years [...] Description 09/25/2025 2:00 PM EST Office Visit [facility] MEDICINE [address] [place] [address] Alba So NP [address] [place] [address] documented as of this encounter Visit Diagnoses Not on filedocumented in this encounter Additional Health Concerns Assessment Noted Time PHQ-9 Depression Total Score: 18 024 11:56 AM EST documented as of this encounter Care Teams Coconut Jelly Roller Relationship Specialty Start Date End Date Alba So NP [address] [place] [address] PCP - General Family Medicine 04/14/24 documented as of this encounter
--- OUTSIDE RECORDS SUMMARY | 2025-09-13 16:28 | XMS_ITS | Encounter Summary ---
Author Organization [facility] Address [address] [place] [address] Phone Care Team Providers Care Account Development Specialist Name Role Phone Pcp, Unknown Primary Care Provider Unavailabl e Encounter Details Date Type Department Care Team (Late st Contact Info) Description 10/20/2023 Transcribe Orders Virtual Department [address] [place] [address] Lucy Best PA [address] [place], [place] [phone] [email or web address] Anemia, unspecified type (Primary Dx) Social History [...] Primary documented in this encounter Care Teams Account Development Specialist Relationship Specialty Start Date End Date Pcp, Unknown PCP - General 12/06/19 documented as of this encounter Additional Source Comments The information contained in this document represents components of the legal health record. It is not the complete legal health record.[facility]
--- OUTSIDE RECORDS SUMMARY | 2025-09-13 16:28 | XMS_ITS | Encounter Summary ---
Author Organization [employer] Address [address] [facility] [address] [place] [address] Care Team Providers Care Cager Operator Name Role Phone Nirali LottP Primary Care Provider [phone] Alba So NP Primary Care Provider [phone] Reason for Visit * Reason Onset Date Comments PT1 08/05/2023 Encounter Details Date Type Department Care Team ([facility] st Contact Info) Description 08/05/2023 Telephone [facility] [address] [place] [address] Nirali Lott FNP [address] [place], [place] [phone] PT1 Social History Tobacco Use Types Packs/Day [...] 08/05/2023 1:12 PM EDT PT-1 Request Number [id number] is Pending * Telephone Encounter - Sage Telles - 08/05/2023 12:36 PM EDT Tc alanna Manley with [facility] Partner requesting a PT1: Name of facility: [facility] Specialty: Consult possible liver transplant Location: [address] [place] [address] Date: 08/12/2023 Time: 11:00 am fax: n/a wheelchair: no Executive Kitchen Manager: no All future appt's documented in this encounter Plan of Treatment Upcoming Encounters Date Type Department Care Team (Late st Contact Info) Description 09/25/2025 2:00 PM EST Office Visit [facility] [address] [place] [address] Alba So NP [address] [place] [address] documented as of this encounter Visit Diagnoses Not on filedocumented in this encounter Additional Health Concerns Assessment Noted Time PHQ-9 Depression Total Score: 0 06/03/20 10:05 AM EDT documented as of this encounter Care Teams Cager Operator Relationship Specialty Start Date End Date iNrali Lott FNP [address] [place] [address] PCP - General Family Medicine 07/09/23 04/13/24 Alba So NP [address] [place] [address] PCP - General Family Medicine 04/14/24 documented as of this encounter
--- OUTSIDE RECORDS SUMMARY | 2025-09-13 16:28 | XMS_ITS | Encounter Summary ---
Author Organization [employer] Address [address] [facility] [address] [place] [address] Care Team Providers Care Side Seam Envelope Machine Operator Name Role Phone GrahamFabriziomarty Harris TOOL AND FIXTURE REPAIRER Primary Care Provider Madisyn Jin [place] Primary Care Provider Unavail Nirali Diaz TOOL AND FIXTURE REPAIRER Primary Care Provider [phone] Alba So NP Primary Care Provider [phone] Encounter Details Date Type Department Care Team (Late st Contact Info) Description 01/05/2023 Orders Only [facility] [address] [place] [address] Nohemi Greene FNP Social History Tobacco Use [...] empyema, recurrent bacteremia and endocarditis,was admitted to [facility] on 07/16/22 for evaluation of chest [...] mom and was in a program in [place] and wasdischarged October 23, now lives at [...] Description 09/25/2025 2:00 PM EST Office Visit [facility] [address] [place] [address] Alba So NP [address] [place], [place] [phone] documented as of this encounter Procedures Procedure [...] EDT 04/13/2023 3:00 PM EDT Comment:Blood Narrative [facility] - 04/18/2023 5:00 PM EDT Blood Culture (Second) No growth after 5 days. Specimen Source: Blood [facility] Exter nal Provider LAB MICROBIOLOGY - GENERAL ORDERABLES Final Result Performing Organization Address [facility]/ZIP Co de Phone Number [facility] [address] [place] [address] [phone] * Blood Culture (First) (04/13/2023 2:20 PM EDT) Blood 04/13/2023 2:20 PM EDT 04/13/2023 3:00 PM EDT Comment:Blood Narrative [facility] - 04/18/2023 5:00 PM EDT Blood Culture (First) No growth after 5 days. Specimen Source: Blood [facility] Exter nal Provider LAB MICROBIOLOGY - GENERAL ORDERABLES Final Result Performing Organization Address [facility]/ZIP Co de Phone Number [facility] [address] [place] [phone] * (ABNORMAL) Urinalysis, Complete, with Reflex to Culture (03/16/2023 6:50 PM EDT) Color Urine Dark Yellow [facility] Appearance Urine Clear [facility] PH 6.5 5.0 - 9.0 [facility] Glucose Urine UA Negative Negative mg/dL [facility] Urine Blood Small (1+)(A) Negative [facility] Specific [place] - Urine 1.015 1.005 - 1.025 [facility] Urine Protein 100 (2+)(A) Neg-Trace mg/dL [facility] Urine Ketones Negative Negative mg/dL [facility] Nitrite Urine Positive(A) Negative [facility] Leukocyte Esterase Urine Small (1+)(A) Negative [facility] RBC Urine >20(A) 0 - 2 /HPF [facility] Urine WBC 6-10(A) 0 - 5 /HPF [facility] Urine Squamous Epithelial Cell 0-2 0 - 2 /HPF [facility] Urine Bacteria None Seen None Seen [facility] Hyaline Casts, Urine 0-2 0 - 2 /LPF [facility] 03/16/2023 6:50 PM EDT 03/16/2023 7:08 PM EDT Narrative [facility] - 03/16/2023 7:57 PM EDT Urine, Clean Catch us [facility] External Provider LAB URI NE ORDERABLES Final Result [facility] [address] [place] [phone] * (ABNORMAL) CBC auto differential (03/16/2023 5:18 PM EDT) White Blood Count 11.0(H) 4.8 - 10.8 X10*3/uL [facility] Red Blood Count 4.07(L) 4.60 - 5.80 X10*6/uL [facility] Hemoglobin 9.7(L) 14.0 - 18.0 g/dl [facility] Hematocrit 30.7(L) 42.0 - 52.0 % [facility] Mean Corpuscular Volume 75.4(L) 80.0 - 98.0 fL [facility] Mean Corpuscular Hemoglobin 23.8(L) 27.0 - 33.0 pg [facility] Mean Corpuscular HGB Conc 31.6 31.0 - 36.0 g/dl [facility] Red Cell Distribution Width 31.5(H) 11.0 - 16.0 % [facility] Platelet Count 597(H) 160 - 400 X10*3/uL [facility] Mean Platelet Volume 9.8 9.4 - 12.4 fL [facility] Neutrophils Percent Auto 60.7 45 - 73 % [facility] Imm Gran Pct Auto 2.0(H) 0.0 - 0.4 % [facility] Lymphocytes Percent Auto 24.7 20 - 40 % [facility] Monocytes Percent Auto 10.5 2 - 11 % [facility] Eosinophils Percent Auto 1.1 0 - 4 % [facility] Basophils Percent Auto 1.0 0 - 2 % [facility] NRBC Pct Auto 0.0 0.0 - 0.2 /100WBC [facility] Neutrophils Absolute Auto 6.7 2.0 - 8.3 x10*3/uL [facility] Imm Gran Abs Auto 0.22(H) 0.00 - 0.03 X10*3/uL [facility] Lymphocytes Absolute Auto 2.7 1.2 - 4.9 X10*3/uL [facility] Monocytes Absolute Auto 1.2 0.1 - 1.2 X10*3/uL [facility] Eosinophils Absolute Auto 0.1 0.0 - 0.4 X10*3/uL [facility] Basophils Absolute Auto 0.1 0.0 - 0.2 X10*3/uL [facility] NRBC Abs Auto 0.000 0.0 - 0.012 X10*3/uL [facility] 03/16/2023 5:18 PM EDT 03/16/2023 5:24 PM EDT us [facility] External Provider LAB BLO OD ORDERABLES Final Result [facility] [address] [place] [phone] * High Sensitivity Troponin I (03/16/2023 5:18 PM EDT) TROPONIN I HIGH SENSITIVITY 11.4 <3.5 - 35.0 ng/L [facility] Comment:The Coley high sens itivity Troponin-I results should beused in conjunction with other diagnostic information suchas ECG, clinical observations and information, and patientsymptoms to aid in the diagnosis of AL. 03/16/2023 5:18 PM EDT 03/16/2023 5:24 PM EDT [facility] External Provider LAB BLO OD ORDERABLES Final Result Performing Organization Address [facility] Co de Phone Number [facility] [address] [place] [phone] * (ABNORMAL) B Type Natriuretic Peptide (BNP) (03/16/2023 5:18 PM EDT) B Type Natriuretic Peptide 378(H) <100 pg/mL [facility] Comment:For those patients w ho are being treated with Natrecor(nesiritide, recombinant BNP), BNP testing should beperformed at least two hours post treatment in order toensure that only endogenous levels of BNP are detected. 03/16/2023 5:18 PM EDT 03/16/2023 5:24 PM EDT [facility] External Provider LAB BLO OD ORDERABLES Final Result Performing Organization Address [facility] Co de Phone Number [facility] [address] [place] [address] [phone] * (ABNORMAL) Lipase (03/16/2023 5:18 PM EDT) Lipase 168(H) 8 - 78 U/L [facility] 03/16/2023 5:18 PM EDT 03/16/2023 5:24 PM EDT [facility] External Provider LAB BLO OD ORDERABLES Final Result Performing Organization Address [facility] Co de Phone Number [facility] [address] [place] [phone] * (ABNORMAL) Basic Metabolic Panel (03/16/2023 5:18 PM EDT) Sodium 139 135 - 145 mmol/L [facility] Potassium 3.0(L) 3.3 - 5.1 mmol/L [facility] Chloride 106 96 - 108 mmol/L [facility] Carbon Dioxide 20(L) 22 - 29 mmol/L [facility] Anion Gap 16 12 - 20 [facility] Urea Nitrogen (BUN) 8(L) 9 - 16 mg/dL [facility] Creatinine, Serum 0.74 0.5 - 1.4 mg/dL [facility] Creatinine Clr Calc Pharmacy 131.5 [facility] Comment:eGFR (calculated fro m the MDRD study equation) and eCrCl(calculated from the Cockcroft-Gault equation) are based ondifferent parameters and may not yield comparable results.If eCrCl result is absurd, please check patient'sheight/weight. Estimated Glomerular Filt Rate >60 [facility] Comment:NOTE: For -Am erican individuals, multiply the result by 1.210.Chronic Kidney Disease: Estimated GFR < 60 mL/min/[id number] Kidney Disease: Estimated GFR < 15 mL/min/1.73m2 Glucose 84 60 - 115 mg/dL [facility] Calcium 9.4 8.4 - 10.2 mg/dL [facility] 03/16/2023 5:18 PM EDT 03/16/2023 5:24 PM EDT us [facility] External Provider LAB BLO OD ORDERABLES Final Result [facility] [address] [place] [phone] * (ABNORMAL) Hepatic Function Panel (03/16/2023 5:18 PM EDT) Bilirubin, Total 5.9(H) 0.0 - 1.0 mg/dL [facility] Bilirubin, Direct 3.5(H) 0.0 - 0.5 mg/dL [facility] Aspartate Amino Transferase 19 5 - 37 U/L [facility] Alanine Aminotransferase 13 0 - 40 U/L [facility] Total Protein 7.7 6.5 - 8.0 g/dL [facility] Albumin Level 3.9 3.5 - 5.0 g/dL [facility] Alkaline Phosphatase 154(H) 39 - 117 U/L [facility] 03/16/2023 5:18 PM EDT 03/16/2023 5:24 PM EDT [facility] External Provider LAB BLO OD ORDERABLES Final Result Performing Organization Address [facility] Co de Phone Number [facility] [address] [place] [address] [phone] Lactic Acid (03/16/2023 5:18 PM EDT) Lactic Acid 1.7 0.5 - 2.0 mmol/L [facility] 03/16/2023 5:18 PM EDT 03/16/2023 5:24 PM EDT [facility] External Provider LAB BLO OD ORDERABLES Final Result Performing Organization Address [facility] Co de Phone Number [facility] [address] [place] [address] [phone] documented in this encounter Visit Diagnoses Not on filedocumented in this encounter Care Teams Side Seam Envelope Machine Operator Relationship Specialty Start Date End Date Megan Stevenson FNP PCP - General Family Medicine 03/27/22 04/23/23 Jin Mack AGNP PCP - General Family Medicine 04/24/23 07/08/23 Nirali Lott FNP [address] [place] [address] PCP - General Family Medicine 07/09/23 04/13/24 Alba So NP [address] [place] [phone] PCP - General Family Medicine 04/14/24 documented as of this encounter
--- OUTSIDE RECORDS SUMMARY | 2025-09-13 16:28 | XMS_ITS | Clinical Summary ---
Author Organization [employer] Address [address] [facility] [address] [place] [address] Care Team Providers Care Spanish Literature Professor Name Role Phone Alba So GENEVA Primary Care Provider [phone] Allergies No known active allergies Medications * [...] 1 tablet by mouth Once per day. 4 Active midodrine (Proamatine) 2.5 MG tabletIndicati ons:History of artificial heart valve Take 1 tablet (2.5 mg) by mouth 3 times daily. 90 tablet 5 Active Blood Pressure kit 1 each 2 times daily. 1 kit 5 12/22/19 26 Active naloxone (Narcan) 4 mg/0.1 mL nasal spray PLEASE SEE ATTACHED FOR DETAILED DIRECTIONS 5 Active magnesium oxide (Mag-Ox) 400 MG tablet Take 1 tablet by mouth 2 times daily. 5 Active spironolactone (Aldactone) 25 MG tabletIndicati ons:History of artificial heart valve TAKE 2 TABLETS BY MOUTH EVERY DAY DIRECTED 30 tablet 5 Active betamethasone valerate (Valisone) 0.1 % ointment Apply topically if needed in the morning and at bedtime (dryness). 45 g 2 5 Active Eliquis 5 MG tabletIndicati ons:Hx pulmonary embolism Take 1 tablet (5 mg) by mouth 2 times daily. 60 tablet 2 5 Active furosemide (Lasix) 20 MG tabletIndicati ons:Hx of heart failure Take 1 tablet (20 mg) by mouth Once per day. 90 tablet 5 Active Ventolin HFA 108 (90 Base) MCG/ACT inhaler Inhale 1-2 puffs Every 4-6 hours as needed for wheezing. 5 Active ferrous sulfate 325 (65 Fe) MG tablet Take 1 tablet by mouth every other day. 5 Active sertraline (Zoloft) 50 MG tablet Take 1 tablet by mouth Once per day. 5 Active traZODone (Desyrel) 50 MG tablet Take 1 tablet by mouth at bedtime. 5 Active hydrOXYzine pamoate (Vistaril) 50 MG capsule Take 1 capsule by mouth if needed in the morning, at noon, and at bedtime for anxiety. Active allopurinol (Zyloprim) 100 MG tablet Take 1 tablet (100 mg) by mouth Once per day. 30 tablet 11 5 08/16/20 Active azithromycin (Zithromax) 250 MG tablet Take 2 tabs day and then 1 tab daily 6 tablet 5 08/16/20 25 Discontinu ed(Therapy completed) neomycin-bacit racin-polymyxi n (Neosporin) 5-400-5000 ointment Apply topically Once per day for 10 days. 14.2 g 5 08/21/20 predniSONE (Deltasone) 20 MG tablet Take 1 tablet (20 mg) by mouth Once per day for 5 days. 5 tablet 5 08/18/20 doxycycline (Vibra-Tabs) 100 MG tablet Take 1 tablet (100 mg) by mouth 2 times daily for 10 days. Take with a full glass of water and do not lie down for at least 30 minutes after. 20 tablet 5 08/26/20 Active Problems Problem Noted Date Diagnosed Date [...] treatment, ambulance called and expect called to [facility]. 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 Assessment & Plan (11/21/2024 7:05 PM EST): Pt with complicated hx and difficulty with out patient compliance Meds reconciled with [facility] discharge documents and refilled Pt prefers to seek care at [facility] today for ongoing cardiac issues History [...] he gets home to be transported to [facility] for stitching as he did not want to be transported directly from the clinic Hx of pulmonary embolus 04/18/2023 Overview (04/18/2023): Treating w/ Xarelto 20 mg daily while at [facility] 03/16/23-04/15/23 (anticipated discharge date) Anemia, chronic disease 10/09/2022 Symptomatic anemia 10/09/2022 Overview (10/09/2022): Acute anemia related to tooth extractions on 10/01/22 while still on xarelto for anticoagulation. Taken to [place] ED, bleeding gums, not able to stop with pressure Hemoglobin 3 Received 1 prbc transfusion Transferred to [facility] for admission on 10/02/22. Received another transfusion Discharged 10/06/22 Ascites 07/21/2022 Bacteremia 07/21/2022 Overview (04/18/2023): Recurrent bacteremia and endocarditis found 03/04/23. Admitted. Left AMA on 03/14/23 Returned 03/15/23. Admitted again with plan to transfer to [facility], to continue antibiotics until 04/15 to [...] -but seems symptoms are cronic Heroin dependence ([facility]) 06/27/2022 Overview (08/23/2024): Admitted to [facility] for rehab Treated w/ Methadone 40 mg at [facility] 03/16/23-04/15/23 -[facility] 08/23/24 Assessment & Plan (08/23/2024 2:45 PM EST): Admitted to [facility] for rehab Treated w/ Methadone 40 mg at [facility] 03/16/23-04/15/23 -[facility] to [facility] [...] Overview (10/09/2022): 07/16/22 - Presented to [facility] ED with hypotension, found to be in septic shock 07/20/22 - Left hospital AMA before completing IV antibiotics. Blood cultures positive for GBS and required pressor support when he arrived. 07/21/22 - Mother took Pt to [facility] ED since he left [facility] AM. 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 I will place a referral to our [facility] hep c team. Resolved Problems Problem Noted Date Diagnosed Date Resolved Date Chest pain 10/17/2024 08/16/2025 Elevated troponin 10/17/2024 08/16/2025 Endocarditis 10/17/2024 08/16/2025 Encounters Date Type Department Care Team Description 09/13/2025 Patient Outreach [address] [address] Alba So NP Pre-visit Planning ([facility] screening was completed on 01/19/2025) 08/30/[address] [address] Alba So NP FYI 08/28/2025 1:00 PM EST [facility] [address] [address] Tami House MD Cellulitis of lower extremity, unspecified laterality (Primary Dx) 08/28/2025 Travel 08/22/2025 Orders Only GENERIC EXTERNAL DATA DEPARTMENT Provider, Generic External Data 08/18/2025 8:40 AM EDT Office [facility] [address] [address] Mikie Fagan MD Cellulitis of left lower extremity (Primary Dx) 08/18/2025 Travel 08/17/[address] [address] Humaira Bruno, NABEEL Hep C 08/16/2025 10:00 AM EDT Office Visit [address] [address] Sabas Junior MD Cellulitis of left lower extremity (Primary Dx); Ulcer of extremity due to chronic venous insufficiency (HCC) 08/16/2025 Travel 08/13/2025 Results Follow-Up [address] [address] Krystyna Vaughn MD XR Fingers 2+ Views Left 08/11/2025 2:20 PM EDT Office [facility] [address] [address] Krystyna Vaughn MD Finger pain, left (Primary Dx); Varicose veins of left lower extremity with inflammation; Tenosynovitis of finger 08/11/2025 Orders Only [address] [address] Krystyna Vaughn MD 08/11/2025 Travel 08/09/[address] [phone] Humaira Bruno, NABEEL hep C tx 08/07/2025 10:20 AM EDT Office Visit [address] [address] Isamar Adams MD Acute bronchitis, unspecified organism (Primary Dx) 08/07/2025 Telephone [facility] [address] [address] Isamar Adams MD 08/07/2025 Travel 08/03/[address] [address] Alba So NP ER Follow-up 07/26/[address] [address] Humaira Bruno RN Hep C tx 07/25/[address] [address] Krystyna Vaughn MD DME L&C Compression stockings 07/25/[address] [address] Krystyna Vaughn MD RX Compresson stockings 07/24/[address] [address] Alba So NP Durable Medical Equipment 07/20/2025 Results Follow-Up [address] [address] Alba So NP XR Chest 2 Views 07/19/2025 10:00 AM EDT Office Visit [address] [address] Viviana Cruz FNP Hospital discharge follow-up (Primary Dx); Hemorrhage of varicose veins of lower extremity, bilateral; History of positive hepatitis C 07/19/2025 Orders Only [facility] External Provider, [facility] 07/19/2025 Travel 07/18/2025 9:20 AM EDT Office [facility] [address] [address] Nighat Galloway MD Hx pulmonary embolism (Primary Dx); Shortness of breath; Hx of heart failure 07/18/2025 Travel 07/17/2025 Telephone [facility] [address] [place] [phone] Malika Garnett, Glynn 07/15/2025 10:40 AM EDT Office Visit [facility] [address] [place] [phone] Krystyna Vaughn MD Venous stasis dermatitis of both lower extremities (Primary Dx); Bleeding from varicose veins of left lower extremity 07/15/2025 Travel 07/11/2025 Patient Outreach [facility] [address] [place] [phone] Alba So NP Pre-visit Planning (HDF- scheduled with the direct line and SDOH screening completed on 01/19/2025) 07/07/2025 Results Follow-Up [facility] [address] [place] [phone] Alba So NP CBC auto differential, Complete Blood Count Manual Diff, Prothrombin Time-INR, Additional followed-up results: 7 from Last 3 Months Immunizations Immunization Administration [...] EST Office Visit [facility] [address] [place], [place] [phone] Alba So NP [address] [place] [address] Health Maintenance Due Date Last Done Comments [...] 10/18/2024 , 10/18/2024 COVID-19 Vaccine (1 - 2024-2 6 season) 2025 Influenza Vaccine (#1) 2025 , [...] 08/22/2025 2:21 PM EST COVID-19 ID NOW ([employer]) Routine 08/22/2025 1:43 PM EST INFLUENZA A [...] 07/18/2025 9:33 AM EDT Shortness of breath HIV 1/2 ANTIGEN/ANTIBODY, FOURTH GENERATION W/RFL Routine 04/08/2024 11:52 AM EDT Hepatitis C virus infection without hepatic coma, unspecified chronicity from Last 3 Months or Most Recently Relevant to Health Maintenance Results * CTA Chest PE Protocal (08/22/2025 2:21 PM EST) Anatomical Region Laterality Modality Body, Chest Computed Tomogra phy 08/22/2025 2:21 PM EST Narrative 08/22/2025 3:10 PM EST [place] [id number] [address] Scan Report Signed Patient: Norberto Marquez MR#: [id number] : 1990 Acct:[id number] Age/Sex: 34 / M ADM Date: 08/22/25 Loc: .ED Attending Dr: Ordering Physician: Norma Grant DO Date of Service: 08/22/25 Procedure(s): CT angio chest PE protocol Accession Number(s): [id number] cc: Norma Grant DO; [facility] Report Number: [id number]: Total DLP = 240.00 mGy-cm Reason for [...] by: Monica Richmond MD 08/22/2025 03:07 PM [facility] Dictated By: Monica Richmond MD Signed By: <Electronically signed by Monica Richmond MD in OV> 08/22/25 1507 DD/ 1421 TD/TT: 08/22/25 1439 Associate Merchant: MICHAEL Procedure Note Donotuseinterpreter, Image - 08/22/[address] [place] [address] [address] Scan Report Signed Patient: Zully Marquez#: [id number] : 1990Acct:[id number] Age/Sex: 34 / MADM Date: 08/22/25 Loc: .ED Attending Dr: Ordering Physician: Norma Grant DO Date of Service: 08/22/25 Procedure(s): CT angio chest PE protocol Accession Number(s): [id number] cc: Norma Grant DO; [facility] Report Number: [id number]: Total DLP = 240.00 mGy-cm Reason for [...] 08/22/25 1507 DD/ 1421 TD/TT: 08/22/25 1439 Associate Merchant: MICHAEL [facility] External Provider IMG CT PROCEDURES Final Result * Influenza A B2 ID NOW ([facility]ung) (08/22/2025 1:43 PM EST) Only the most recent of2 resultswithin the time period is included. IDNOW SERIAL# [id number] [facility] Influenza A Negative Negative [facility] Influenza B2 Negative Negative [facility] Influenza A B2 Note See Note [facility] Comment:The [facility]ung ID NOW In [...] LAB MICROBIOLOGY - GENERAL ORDERABLES Final Result [facility] [address] [place] [phone] * COVID-19 ID NOW (CHEUNG) (08/22/2025 1:43 PM EST) Only the most recent of2 resultswithin the time period is included. IDNOW SERIAL# [id number] [facility] COVID-19 TEST Negative Negative [facility] COVID-19 NOTE See Note [facility] Comment: Results are for the identification of SARS-CoV2 RNA. TheSARS-CoV2 RNA is generally detectable in respiratory samplesduring the acute phase of infection. Positive results areindicative of the presence of SARS-CoV-2 RNA; clinicalcorrelation with patient history and other diagnosticinformation is necessary to determine patient infectionstatus. Positive results do not rule out bacterial infectionor co- infection with other viruses.Testing facilities within the [facility] and itsterritories are required to report all [...] use by authorized laboratories.Testing performed on the [employer] ID NOW utilizing NAAT. 08/22/2025 1:43 PM EST 08/22/2025 1:54 PM EST us Generic External Data Provider LAB MOLECULAR [place] [facility] ORDERABLES Final Result [facility] [address] [place] [phone] * Blood Culture (First) (08/22/2025 1:42 PM EST) Blood Venous blood specimen / Unknown 08/22/2025 1:42 PM EST 08/22/2025 1:53 PM EST Comment:Blood Narrative [facility] - 08/27/2025 3:53 PM EST Blood Culture (First) No growth after 5 days. Specimen Source: Blood us Generic External Data Provider LAB MICROBIOLOGY - GENERAL ORDERABLES Final Result Performing Organization Address [facility]/ZIP Co de Phone Number [facility] [address] [place] [phone] * Blood Culture (Second) (08/22/2025 1:42 PM EST) Blood Venous blood specimen / Unknown 08/22/2025 1:42 PM EST 08/22/2025 1:57 PM EST Comment:Blood Narrative [facility] - 08/27/2025 3:57 PM EST Blood Culture (Second) No growth after 5 days. Specimen Source: Blood Generic External Data Provider LAB MICROBIOLOGY - GENERAL ORDERABLES Final Result Performing Organization Address [facility] de Phone Number [facility] [address] [place] [phone] * (ABNORMAL) Complete Blood Count Manual Diff (08/22/2025 1:42 PM EST) White Blood Count 10.5 4.8 - 10.8 X10*3/uL [facility] Red Blood Count 5.28 4.60 - 5.80 X10*6/uL [facility] Hemoglobin 13.1(L) 14.0 - 18.0 g/dl [facility] Hematocrit 42.2 42.0 - 52.0 % [facility] Mean Corpuscular Volume 79.9(L) 80.0 - 98.0 fL [facility] Mean Corpuscular Hemoglobin 24.8(L) 27.0 - 33.0 pg [facility] Mean Corpuscular HGB Conc 31.0 31.0 - 36.0 g/dl [facility] Red Cell Distribution Width 22.8(H) 11.0 - 16.0 % [facility] Platelet Count 202 160 - 400 X10*3/uL [facility] Mean Platelet Volume 9.2(L) 9.4 - 12.4 fL [facility] NRBC Pct Auto 0.0 0.0 - 0.2 /100WBC [facility] NRBC Abs Auto 0.000 0.0 - 0.012 X10*3/uL [facility] Neutrophils % Manual 73 45 - 73 % [facility] Band Neutrophils Percent 5 3 - 5 % [facility] Lymphocytes Percent Manual 11(L) 20 - 40 % [facility] Atypical Lymphs Percent Manual 3 0 - 6 % [facility] Monocytes Percent Manual 4 2 - 11 % [facility] EOSINOPHILS % MANUAL 2 0 - 4 % [facility] Metamyelocytes % (Manual) 2 % [facility] NEUTROPHILS ABSOLUTE MANUAL 8.2 2.0 - 8.3 X10*3/uL [facility] LYMPHOCYTES ABSOLUTE MANUAL 1.2 1.2 - 4.9 X10*3/uL [facility] Atypical Lymph Absolute Manual 0.3 x10*3/uL [facility] MONOCYTES ABSOLUTE MANUAL 0.4 0.1 - 1.2 X10*3/uL [facility] EOSINOPHILS ABSOLUTE MANUAL 0.2 0.0 - 0.4 X10*3/uL [facility] Absolute Metamyelocytes 0.2 X10*3/uL [facility] Platelet Estimate [facility] Large Platelet [facility] Platelet Morphology Comment NOTED [facility] RBC Morphology NOTED [facility] Ovalocytes 1+ (5-14) /OIF [facility] 08/22/2025 1:42 PM EST 08/22/2025 1:53 PM EST us Generic External Data Provider LAB BLOOD ORDERAB LES Final Result [facility] [address] [place] [phone] * (ABNORMAL) CBC auto differential (08/22/2025 1:42 PM EST) Only the most recent of3 resultswithin the time period is included. White Blood Count 10.5 4.8 - 10.8 X10*3/uL [facility] Red Blood Count 5.28 4.60 - 5.80 X10*6/uL [facility] Hemoglobin 13.1(L) 14.0 - 18.0 g/dl [facility] Hematocrit 42.2 42.0 - 52.0 % [facility] Mean Corpuscular Volume 79.9(L) 80.0 - 98.0 fL [facility] Mean Corpuscular Hemoglobin 24.8(L) 27.0 - 33.0 pg [facility] Mean Corpuscular HGB Conc 31.0 31.0 - 36.0 g/dl [facility] Red Cell Distribution Width 22.8(H) 11.0 - 16.0 % [facility] Platelet Count 202 160 - 400 X10*3/uL [facility] Mean Platelet Volume 9.2(L) 9.4 - 12.4 fL [facility] Neutrophils Percent Auto 68.9 45 - 73 % [facility] Imm Gran Pct Auto 6.5(H) 0.0 - 0.4 % [facility] Lymphocytes Percent Auto 16.6(L) 20 - 40 % [facility] Monocytes Percent Auto 5.5 2 - 11 % [facility] Eosinophils Percent Auto 1.6 0 - 4 % [facility] Basophils Percent Auto 0.9 0 - 2 % [facility] NRBC Pct Auto 0.0 0.0 - 0.2 /100WBC [facility] Neutrophils Absolute Auto 7.3 2.0 - 8.3 x10*3/uL [facility] Imm Gran Abs Auto 0.68(H) 0.00 - 0.03 X10*3/uL [facility] Lymphocytes Absolute Auto 1.8 1.2 - 4.9 X10*3/uL [facility] Monocytes Absolute Auto 0.6 0.1 - 1.2 X10*3/uL [facility] Eosinophils Absolute Auto 0.2 0.0 - 0.4 X10*3/uL [facility] Basophils Absolute Auto 0.1 0.0 - 0.2 X10*3/uL [facility] NRBC Abs Auto 0.000 0.0 - 0.012 X10*3/uL [facility] 08/22/2025 1:42 PM EST 08/22/2025 1:53 PM EST Generic External Data Provider LAB BLOOD ORDERAB LES Edited Result - Final Performing Organization Address [facility]/ZIP Co de Phone Number [facility] [address] [place] [phone] * Lactic Acid (08/22/2025 1:42 PM EST) Pathologist [facility] Lactic Acid 1.5 0.5 - 2.0 mmol/L [facility] 08/22/2025 1:42 PM EST 08/22/2025 1:53 PM EST Generic External Data Provider LAB BLOOD ORDERAB LES Final Result Performing Organization Address [facility] Co de Phone Number [facility] [address] [place] [phone] * (ABNORMAL) Comprehensive Metabolic Panel (08/22/2025 1:42 PM EST) Sodium 140 135 - 145 mmol/L [facility] Potassium 4.5 3.3 - 5.1 mmol/L [facility] Chloride 107 96 - 108 mmol/L [facility] Carbon Dioxide 25 22 - 29 mmol/L [facility] Anion Gap 13 12 - 20 [facility] Urea Nitrogen (BUN) 29(H) 9 - 16 mg/dL [facility] Creatinine, Serum 0.96 0.5 - 1.4 mg/dL [facility] Creatinine Clr Calc Pharmacy 114.9 [facility] Comment:eGFR (calculated fro m the MDRD study equation) and eCrCl(calculated from the Cockcroft-Gault equation) are based ondifferent parameters and may not yield comparable results.If eCrCl result is absurd, please check patient'sheight/weight. Estimated Glomerular Filt Rate >60 [facility] Comment:Chronic Kidney Disea se: Estimated GFR < 60 mL/min/1.54g4Hkdjyc Kidney Disease: Estimated GFR < 15 mL/min/1.73m2 Glucose 136(H) 60 - 115 mg/dL [facility] Calcium 9.4 8.4 - 10.2 mg/dL [facility] Bilirubin, Total 0.7 0.0 - 1.0 mg/dL [facility] Aspartate Amino Transferase 42(H) 5 - 37 U/L [facility] Alanine Aminotransferase 60(H) 0 - 40 U/L [facility] Total Protein 7.8 6.5 - 8.0 g/dL [facility] Albumin Level 4.1 3.5 - 5.0 g/dL [facility] Alkaline Phosphatase 212(H) 39 - 117 U/L [facility] 08/22/2025 1:42 PM EST 08/22/2025 1:53 PM EST us Generic External Data Provider LAB BLOOD ORDERAB LES Final Result Performing Organization Address [facility]/ZIP Co de Phone Number [facility] [address] [place] [phone] * Slide Review (08/11/2025 3:17 PM EDT) Only the most recent of2 resultswithin the time period is included. Slide Review VERIFIED [facility] 08/11/2025 3:17 PM EDT 08/11/2025 4:07 PM EDT us Krystyna Vaughn MD LAB BLOOD ORDERABLES Fin al Result Performing Organization Address [facility]/ZIP Co de Phone Number [facility] [address] [place] [phone] * (ABNORMAL) Hepatitis Panel, General (08/11/2025 3:17 PM EDT) Hepatitis A IgM Nonreactive Nonreactive [facility] Comment:IgM antibodies to DARDEN V not detected; does not exclude earlyacute or recovered HAV infection. ~Hepatitis B Surface Antibody REACTIVE Nonreactive [facility] Comment:REACTIVE: > 11.99 mI U/mL Hepatitis B Core Antibody Nonreactive Nonreactive [facility] Hepatitis C Antibody Reactive(A) Nonreactive [facility] Comment:Presumptive evidence of antibodies to HCV. Hepatitis B Surface Ag Negative Negative [facility] Blood 08/11/2025 3:17 PM EDT 08/11/2025 6:18 PM EDT Krystyna Vaughn MD LAB BLOOD ORDERABLES Fin al Result Performing Organization Address [facility] Co de Phone Number [facility] [address] [place] [phone] * Sed Rate by Modified Adalidergren (08/11/2025 3:17 PM EDT) Pathologist [facility] Erythrocyte Sedimentation Rate 9 0 - 15 MM/HR [facility] Comment:Patients with polycy themia and many hemoglobin abnormalitiesmay have depressed sed rates whereas patients with anemiamay have elevated sed rates. Blood Venous blood specimen / Unknown 08/11/2025 3:17 PM EDT 08/11/2025 4:07 PM EDT Krystyna Vaughn MD LAB BLOOD ORDERABLES Fin al Result Performing Organization Address City/[facility]/ZIP Co de Phone Number [facility] [address] [place] [phone] * Rheumatoid Factor (08/11/2025 3:17 PM EDT) [facility] Rheumatoid Factor <13.0 <15.0 IU/mL [facility] Blood Venous blood specimen / Unknown 08/11/2025 3:17 PM EDT 08/11/2025 6:18 PM EDT us Krystyna Vaughn MD LAB BLOOD ORDERABLES Fin al Result Performing Organization Address City/[facility]/ZIP Co de Phone Number [facility] [address] [place] [phone] * (ABNORMAL) C-reactive Protein (08/11/2025 3:17 PM EDT) C Reactive Protein 6.24(H) < or = 0.50 mg/dL [facility] Blood Venous blood specimen / Unknown 08/11/2025 3:17 PM EDT 08/11/2025 6:18 PM EDT Krystyna Vaughn MD LAB BLOOD ORDERABLES Fin al Result Performing Organization Address [facility]/ZIP Co de Phone Number [facility] [address] [place] [phone] * KRYSTYNA Screen,IFA, with Reflex to Titer and Pattern (08/11/2025 3:17 PM EDT) Anti Nuclear Antibody Screen NEGATIVE NEGATIVE [facility] Comment:KRYSTYNA IFA is a first [...] clinicallysuspected inflammatory myopathies.AC-0: NegativeInternational Consensus on KRYSTYNA Patterns(https://doi.org/10.1515/iahf-5082-2555)For additional information, please refer tohttp://education.[employer]/faq/DKI930(This link is being provided for informational/educational purposes only.)THIS TEST WAS PERFORMED AT:[employer] [place] [phone] DAVIS MD KRYSTYNA Titer TNP [facility] KRYSTYNA Pattern TNP [facility] KRYSTYNA Titer 2 TNP [facility] KRYSTYNA Pattern 2 TNP [facility] K[facility]ST[facility]NA TITER 3 [facility]ST[facility] PATTERN 3 [facility] Blood Venous blood specimen / Unknown 08/11/2025 3:17 PM EDT 08/11/2025 6:18 PM EDT us Krystyna Vaughn MD LAB BLOOD ORDERABLES Fin al Result Performing Organization Address City/[facility] Co de Phone Number [facility] [address] [place] [phone] * (ABNORMAL) Uric acid (08/11/2025 3:17 PM EDT) Uric Acid 9.2(H) 3.4 - 7.0 mg/dL [facility] Blood Venous blood specimen / Unknown 08/11/2025 3:17 PM EDT 08/11/2025 6:18 PM EDT us Krystyna Vaughn MD LAB BLOOD ORDERABLES Fin al Result Performing Organization Address [facility] Co de Phone Number [facility] [address] [place] [phone] * XR Fingers 2+ Views Left (08/11/2025 2:58 PM EDT) Anatomical Region Laterality Modality Upper Extremities, Fingers Left Radio graphic Imaging 08/11/2025 2:58 PM EDT Narrative 08/11/2025 3:06 PM EDT [facility] [address] [place] [address] XRay Report Signed Patient: Norberto Marquez MR#: [id number] : 1990 Acct:[id number] Age/Sex: 34 / M ADM Date: 08/11/25 Loc: .HHCX Attending Dr: Krystyna Vaughn MD Ordering Physician: Krystyna Vaughn MD Date of Service: 08/11/25 Procedure(s): XR finger LT min 2V Accession Number(s): [id number] cc: Krystyna Vaughn MD Reason for Exam: [...] 08/11/25 1503 DD/ 1458 TD/TT: 08/11/25 1448 Associate Merchant: MICHAEL Procedure Note Donotuseinterpreter, Image - 08/11/[address] [address] XRay Report Signed Patient: Zully Marquez#: [id number] : 1990Acct:[id number] Age/Sex: 34 / MADM Date: 08/11/25 Loc: HO.HHCX Attending Dr: Krystyna Vaughn MD Ordering Physician: Krystyna Vaughn MD Date of Service: 08/11/25 Procedure(s): XR finger LT min 2V Accession Number(s): [id number] cc: Krystyna Vaughn MD Reason for Exam: [...] 08/11/25 1503 DD/ 1458 TD/TT: 08/11/25 1448 Associate Merchant: MICHAEL Krystyna Vaughn MD IMG XR PROCEDURES Final Result * POCT Rapid COVID Ag (08/07/2025 9:54 AM EDT) Only the most recent of2 resultswithin the time period is included. [facility] Rapid COVID Ag Negative Swab 08/07/2025 9:54 AM EDT Isamar Adams MD POINT OF CARE TEST ENTER/EDIT OR DERABLES Final Result * POCT rapid strep A manually resulted (08/07/2025 9:54 AM EDT) Only the most recent of2 resultswithin the time period is included. [facility] Rapid Strep A Screen Negative Negative, None Detected Swab 08/07/2025 9:54 AM EDT Isamar Adams MD POINT OF CARE TEST ENTER/EDIT OR DERABLES Final Result * (ABNORMAL) Drug Monitoring, Panel 1, Screen, Urine (07/19/2025 8:51 PM EDT) Opiate Screen Urine Not Detected Not Detect [facility] Comment:Opiate cut-off is 30 0 ng/mL.Positive results are unconfirmed and should not be used fornon-medical purposes. Barbiturates, Urine Not Detected Not Detect [facility] Comment:Barbiturate cut-off is 200 ng/mL.Positive results are unconfirmed and should not be used fornon-medical purposes. Phencyclidine Screen Urine Not Detected Not Detect [facility] Comment:Phencyclidine cut-of f is 25 ng/mL.Positive results are unconfirmed and should not be used fornon-medical purposes. Amphetamine Screen Urine Not Detected Not Detect [facility] Comment:Amphetamine cut-off is 1000 ng/mL.Positive results are unconfirmed and should not be used fornon-medical purposes. Benzodiazepines Screen Urine Not Detected Not Detect [facility] Comment:Benzodiazepine cut-o ff is 200 ng/mL.Positive results are unconfirmed and should not be used fornon-medical purposes. Cocaine Screen Urine Not Detected Not Detect [facility] Comment:Cocaine cut-off is 3 00 ng/mL.Positive results are unconfirmed and should not be used fornon-medical purposes. Cannabinoid Screen Urine Not Detected Not Detect [facility] Comment:Cannabinoid cut-off is 50 ng/mL.Positive results are unconfirmed and should not be used fornon-medical purposes. Methadone Screen, Urine Positive(A) Not Detect ng/mL [facility] Comment:Methadone cut-off is 300 ng/mL.Positive results are unconfirmed and should not be used fornon-medical purposes. FENTANYL URINE Not Detected Not Detect [facility] Comment:Fentanyl cut-off is 1 ng/mL.Positive results are unconfirmed and should not be used fornon-medical purposes. Oxycodone Urine Screen Not Detected Not Detect ng/mL [facility] Comment:Oxycodone cut-off is 100 ng/mL.Positive results are unconfirmed and should not be used fornon-medical purposes. Buprenorphine Screen Not Detected Not Detect ng/mL [facility] Comment:Buprenorphine cut-of f is 5 ng/mL.Positive results are unconfirmed and should not be used fornon-medical purposes. 07/19/2025 8:51 PM EDT 07/19/2025 8:52 PM EDT us Generic External Data Provider LAB URINE ORDERAB LES Final Result [facility] [address] [place] [phone] * XR Chest 2 Views (07/19/2025 6:24 PM EDT) Anatomical Region Laterality Modality Chest Radiographic Ladan ging 07/19/2025 6:24 PM EDT Narrative 07/19/2025 6:26 PM EDT [address] [address] XRay Report Signed Patient: Norberto Marquez MR#: [id number] : 1990 Acct:[id number] Age/Sex: 34 / M ADM Date: 07/19/25 Loc: .ED Attending Dr: Ordering Physician: Alana Carreon Date of Service: 07/19/25 Procedure(s): XR chest 2V Accession Number(s): [id number] cc: [facility]; Alana Carreon Reason for Exam: SOB CLINICAL HISTORY: SOB 2 view chest x-ray Comparison: 01/24/2025 Findings: The lungs are clear. Heart size is normal. No acute fracture. IMPRESSION: 1. No acute findings. This document has been electronically signed by: Colin Reyes MD on 07/19/2025 18:24:34 Dictated By: Colni Reyes MD Signed By: <Electronically signed by Colin Reyes MD in OV> 07/19/251824 DD/ 23 TD/TT: 07/19/251823 Associate Merchant: Procedure Note Donotsatnaminterpreter, Image - 07/19/[address] [address] XRay Report Signed Patient: Zully Marquez#: [id number] : 1990Acct:[id number] Age/Sex: 34 / MADM Date: 07/19/25 Loc: HO.ED Attending Dr: Ordering Physician: Alana Carreon Date of Service: 07/19/25 Procedure(s): XR chest 2V Accession Number(s): [id number] cc: [facility]; Alana Carreon Reason for Exam: SOB [...] in OV> 07/19/251824 DD/ 23 TD/TT: 07/19/251823 Associate Merchant: [facility] External Provider IMG XR PROCEDURES Final Result * High Sensitivity Troponin I (07/19/2025 6:22 PM EDT) [facility] TROPONIN I HIGH SENSITIVITY 3.3 <3.5 - 35.0 ng/L [facility] Comment:The [place] high sens itivity Troponin-I results should beused in conjunction with other diagnostic information suchas ECG, clinical observations and information, and patientsymptoms to aid in the diagnosis of AL. 07/19/2025 6:22 PM EDT 07/19/2025 6:27 PM EDT Generic External Data Provider LAB BLOOD ORDERAB LES Final Result [facility] [address] [place] [phone] * Ethanol (07/19/2025 6:22 PM EDT) Pathologist [facility] ETHANOL (MG/DL) IN SER/PLAS <10 mg/dL [facility] Comment:Serum/plasma ethanol results are to be used formedical/treatment purposes only. 07/19/2025 6:22 PM EDT 07/19/2025 6:27 PM EDT Generic External Data Provider LAB BLOOD ORDERAB LES Final Result Performing Organization Address City/[facility]/ZIP Co de Phone Number [facility] [address] [place] [phone] * NT-proBNP (07/19/2025 6:22 PM EDT) NT-proBNP 251.0 <300 pg/mL [facility] Comment:Reference Range:Age Group (years) NT-proBNP (pg/ml) InterpretationAll <300 Negative: HF unlikelyFor patients presenting to the ED with clinical suspicion ofnew onset or worsening HF, see below:18 to <50 >299.9 to <450.0 Grayzone: Extelayt66 to 75 >299.9 to <900.0 other causes of>75 >299.9 to <1800.0 NT-proBNP [id number] to <50 >449.9 Positive: HF -29 >899.9>75 >1799.9Note: Elevated NT-proBNP levels should be interpreted inthe context of other clinical information. 07/19/2025 6:22 PM EDT 07/19/2025 6:27 PM EDT us Generic External Data Provider LAB BLOOD ORDERAB LES Final Result Performing Organization Address [facility]/ZIP Co de Phone Number [facility] [address] [place] [phone] * Magnesium (07/19/2025 6:22 PM EDT) Magnesium 1.6 1.6 - 2.6 mg/dL [facility] 07/19/2025 6:22 PM EDT 07/19/2025 6:27 PM EDT us Generic External Data Provider LAB BLOOD ORDERAB LES Final Result Performing Organization Address [facility]/ZIP Co de Phone Number [facility] [address] [place] [phone] * (ABNORMAL) Ammonia, Plasma (07/19/2025 6:22 PM EDT) Ammonia (P) 59(H) 13 - 55 umol/L [facility] 07/19/2025 6:22 PM EDT 07/19/2025 6:27 PM EDT us Generic External Data Provider LAB BLOOD ORDERAB LES Final Result Performing Organization Address [facility] Phone Number [facility] [address] [place] [phone] * (ABNORMAL) Hepatic Function Panel (07/19/2025 6:22 PM EDT) Bilirubin, Total 0.9 0.0 - 1.0 mg/dL [facility] Bilirubin, Direct 0.5 0.0 - 0.5 mg/dL [facility] Aspartate Amino Transferase 94(H) 5 - 37 U/L [facility] Alanine Aminotransferase 81(H) 0 - 40 U/L [facility] Total Protein 7.1 6.5 - 8.0 g/dL [facility] Albumin Level 4.0 3.5 - 5.0 g/dL [facility] Alkaline Phosphatase 273(H) 39 - 117 U/L [facility] 07/19/2025 6:22 PM EDT 07/19/2025 6:27 PM EDT Generic External Data Provider LAB BLOOD ORDERAB LES Final Result Performing Organization Address [facility] Co de Phone Number [facility] [address] [place] [phone] * (ABNORMAL) Basic Metabolic Panel (07/19/2025 6:22 PM EDT) Sodium 138 135 - 145 mmol/L [facility] Potassium 4.5 3.3 - 5.1 mmol/L [facility] Chloride 109(H) 96 - 108 mmol/L [facility] Carbon Dioxide 21(L) 22 - 29 mmol/L [facility] Anion Gap 13 12 - 20 [facility] Urea Nitrogen (BUN) 21(H) 9 - 16 mg/dL [facility] Creatinine, Serum 0.79 0.5 - 1.4 mg/dL [facility] Creatinine Clr Calc Pharmacy 126.2 [facility] Comment:eGFR (calculated fro m the MDRD study equation) and eCrCl(calculated from the Cockcroft-Gault equation) are based ondifferent parameters and may not yield comparable results.If eCrCl result is absurd, please check patient'sheight/weight. Estimated Glomerular Filt Rate >60 [facility] Comment:Chronic Kidney Disea se: Estimated GFR < 60 mL/min/1.70r9Ngjfgt Kidney Disease: Estimated GFR < 15 mL/min/1.73m2 Glucose 98 60 - 115 mg/dL [facility] Calcium 9.6 8.4 - 10.2 mg/dL [facility] 07/19/2025 6:22 PM EDT 07/19/2025 6:27 PM EDT us Generic External Data Provider LAB BLOOD ORDERAB LES Final Result [facility] [address] [place] [phone] * Influenza B (ID NOW Rapid Molecular) (07/18/2025 12:57 PM EDT) Influenza B Negative Negative, Indeterminate [facility] Swab 07/18/2025 12:5 7 PM EDT Nighat Galloway MD POINT OF CARE TEST ENTER/E DIT ORDERABLES Final Result Performing Organization Address City/[facility]/ZIP Co de Phone Number [facility] [address] [place] [phone] * Influenza A (ID NOW Rapid Molecular) (07/18/2025 12:57 PM EDT) Influenza A Negative Negative, Indeterminate [facility] Swab 07/18/2025 12:5 7 PM EDT us Nighat Galloway MD POINT OF CARE TEST ENTER/E DIT ORDERABLES Final Result Performing Organization Address [facility] Co de Phone Number [facility] [address] [place] [phone] * HIV-1/2 Antigen and Antibodies, Fourth Generation, with Reflexes (04/08/2024 11:52 AM EDT) Pathologist [facility] HIV AB/AG Nonreactive Nonreactive [facility] Comment:HIV-1 p24 Ag and/or HIV-1/HIV-2 Ab not detected.A test result that is nonreactive does not exclude thepossibility of exposure to or infection with HIV-1 and/orHIV-2. Nonreactive results in this assay for individualswith prior exposure to HIV-1 and/or HIV-2 may be due toantigen and antibody levels that are below the limit ofdetection of this assay.The [employer] HIV Ag/Ab Combo assay result andsupplemental assay results should be interpreted inconjunction with the patient's clinical presentation,history and other laboratory results. If the results areinconsistent with clinical evidence, additional testing issuggested to confirm the result. Blood Venous blood specimen / Unknown 04/08/2024 11:52 AM EDT 04/08/2024 12:58 PM EDT us Alba So TELEPHONE EXCHANGE OPERATOR LAB BLOOD ORDERABLES Final Resu lt Performing Organization Address [facility]/ZIP Co de Phone Number [facility] [address] [place] [phone] from Last 3 Months or Most Recently Relevant to Health Maintenance Insurance [facility] STANDARD Care Teams Spanish Literature Professor Relationship Specialty Start Date End Date Alba So NP [address] [place] [phone] PCP - General Family Medicine 04/14/24
[2025-09-14 08:52] LABS: Cannabinoid Screen Urine Not Detected (Not Detect)
== END 2025-09-13 13:21 | disposition home or self-care (01) ==
LOC: HO.LAB 13:20
PROVIDERS: Visit Provider Surgery Vascular Surgery
DX: Z51.81 Encounter for therapeutic drug level monitoring (principal)
CPT/HCPCS: 80307

== ENCOUNTER 2025-09-25 14:48 | Outpatient (REF) | payer MEDICAID, SELFPAY ==
--- OUTSIDE RECORDS SUMMARY | 2025-09-20 20:23 | XMS_ITS | Continuity of Care Document ---
Author Organization [facility] ter Address [address] [place] [id number]- Care Team Providers Care Tipple Engineer Name Role Phone Severo BEAN, Camelia Primary Care Physician Encounter [facility] Date(s): 09/20/25 - 09/20/[address] [address]- Encounter Diagnosis Hemoptysis(Final) - 09/20/25 Discharge Disposition: A-D/C Home Attending Physician: Kervin Ibanez DO Admitting Physician: Kervin Ibanez DO Referring Physician: Not on Staff, Referring MD Encounter Type: Disch ES Allergies, Adverse Reactions, Alerts No Known Allergies Immunizations Given and Recorded Vaccine Date Status Refusal Reason influenza virus vaccine, inactivated 1 07/27/20 Gi rainer tetanus/diphtheria/pertussis, acel(Tdap) 12/14/17 Given tetanus-diphtheria toxoids (Td) 12/03/17 Recorded Hepatitis A Adult Vaccine 12/03/17 Recorded pneumococcal 23-valent vaccine 06/12/17 Recorded pneumococcal 23-valent vaccine 04/06/17 Given 1Result Comment: Afluria Medications Eliquis 5 mg oral tablet 1 tablet = 5 mg, By Mouth, 2 times a day, # 60 tablet, 0 Refills, Maintenance, 04/30/25 4:38:00 PM EDT, Tablet, [facility], Partial fill upon patient request if the prescription is for aschedule II opioid drug., 178, cm, 04/30/25 14:11:00 EDT, Height, 78.4, kg, 04/27/25 3:16:00 EDT, Dry Weight Start Date: 04/30/25 Status: Ordered Medication Dispense Status: Completed Quantity: 60.0 Unit: tablet Total Allowed Fills: 1 Fills Dispensed: 0 ferrous sulfate 325 mg oral enteric coated tablet 325 mg, By Mouth, Every 48 hours, Refill per PCP, # 30 tablet, Refills 0, Tot. Refills 0, Maintenance, 04/30/25 4:38:00 PM EDT, Route to Pharmacy Electronically, [facility], Partial fillupon patient request if the prescription is for a schedule II opioid drug., 178, cm, 04/30/25 14:11:00 EDT, Height, 78.4, kg, 04/27/25 3:16:00 EDT, Dry Weight Start Date: 04/30/25 Status: Ordered Medication Dispense Status: Completed Quantity: 30.0 Unit: tablet Total Allowed Fills: 1 Fills Dispensed: 0 Lasix 20 mg oral tablet 20 mg, 1, tablet, By Mouth, Daily, # 60 tablet, Refills 0, Tot. Refills 0, Soft Stop, 04/30/25 4:38:00 PM EDT, Route to Pharmacy Electronically, [facility], Partial fill upon patient request if the prescription is for a schedule II opioid drug., 178, cm, 04/30/25 14:11:00 EDT, Height, 78.4, kg, 04/27/25 3:16:00 EDT, Dry Weight Start Date: 04/30/25 Stop Date: 06/29/25 Status: Ordered Medication Dispense Status: Completed Quantity: 60.0 Unit: tablet Total Allowed Fills: 1 Fills Dispensed: 0 Indications: Other specified disorders of the male genital organs; Methadone = 120 mg, By Mouth, Daily, JULIO Shirley, 0 Refills, Maintenance, 01/10/25 10:17:00 AM EDT, Partial fill upon patient request if the prescription is for a schedule II opioid drug. Start Date: 01/10/25 Status: Ordered Medication Dispense Status: Completed Total Allowed Fills: 1 Fills Dispensed: 0 Narcan 4 mg/0.1 mL nasal spray 1 sprays = 4 mg, Nares, Both, Once, PRN Opioid Depression, Maintenance, 01/09/25 10:28:00 AM EDT, Partial fill upon patient request if the prescription is for a schedule II opioid drug. Start Date: 01/09/25 Status: Ordered Medication Dispense Status: Completed Total Allowed Fills: 1 Fills Dispensed: 0 ProAir RespiClick 90 mcg/inh inhalation powder 2 puffs = 180 mcg, Inhalation, Every 4 hours, PRN Wheezing/Shortness of Breath, # 1 each, 0 Refills, Maintenance, 04/30/25 4:38:00 PM EDT, Powder, [facility], Partial fill upon patient request if the prescription is for a schedule II opioid drug., 2 puffs Inhalation Every 4 hours,x30 da ys,PRN:Wheezing/Shortness of Breath, 178, cm, 04/30/25 14:11:00 EDT, Height, 78.4, kg, 04/27/25 3:16:00 EDT, Dry Weight Start Date: 04/30/25 Stop Date: 05/30/25 Status: Ordered Medication Dispense Status: Completed Quantity: 1.0 Unit: each Total Allowed Fills: 1 Fills Dispensed: 0 Vitamin B1 100 mg oral tablet 100 mg, 1, tablet, By Mouth, Daily, Maintenance, 01/09/25 10:31:00 AM EDT, Partial fill upon patientrequest if the prescription is for a schedule II opioid drug. Start Date: 01/09/25 Status: Ordered Medication Dispense Status: Completed Total Allowed Fills: 1 Fills Dispensed: 0 Mental Status Mental Status Assessment Assessment Assessment Component Result Effecti ve Date Jae coma score total 15 09/20/25 Mental Status Assessment Assessment Assessment Component Result Effecti ve Date Jae coma score total 15 09/20/25 Problem List Condition Confirmation Course Effective Dates Status H ealth Status Informant Anemia of chronic disease Confirmed Active Chronic back pain Confirmed Active Chronic hepatitis C Confirmed Active History of pulmonary embolism Confirmed Active History of endocarditis Confirmed Active History of prosthetic tricuspid valve replacement Confirmed Active Hypertension Confirmed Active Endocarditis Confirmed Active IV drug user Confirmed Active IV drug abuse Confirmed Active 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 Was recently treated for pneumonia and bronchitis. Finished antibiotics a couple days ago. On eliquis since valve replacement3 years ago.; Reason: Other:; Chest Pain; Clinical Question(s): Other: COMPARISON: 04/26/2025 FINDINGS: LINES AND TUBES: 2 metallic leads project upon the left upper lung and left heart LUNGS AND PLEURA: Interval decrease in mild pulmonary vascular congestion. No evidence of confluentairspace opacity or lung consolidation. Costophrenic sulci are maintained. No evidence of pneumothorax. HEART, MEDIASTINUM AND NIRALI: Cardiomediastinal silhouette is within normal limits in size. BONES AND SOFT TISSUES: No acute abnormality. Patient is status post median sternotomy. IMPRESSION: Mild pulmonary vascular congestion, decreased with respect to prior No evidence of lung consolidation or pleural effusion WSN: [id number] Ordering Physician: Kelly Willams Dictated By: Mark Romano Jr, MD Dictated Date/Time: 09/20/25 5:35 pm Reviewed By: Mark Romano Jr, MD Signed By: Mark Romano Jr, MD Signed Date/Time: 09/20/25 5:35 pm Transcribed By: CHANG Transcribed Date/Time: 09/20/25 5:33 pm Vital Signs Most recent to oldest [Reference Range]: 1 2 Oxygen Saturation [94-100 %] 97 % (09/20/25 8:00 PM) 96 % (09/20/25 1:30 PM) Pulse Rate [55-90 bpm] 75 bpm (09/20/25 8:00 PM) 96 bpm *H* (09/20/25 1:30 PM) Blood Pressure [90-138/55-84 mm Hg] 119/ 75mm Hg (09/20/25 8:00 PM) 126/108mm Hg (09/20/25 1:30 PM) Respiratory Rate [16-30 br/min] 17 br/mi n (09/20/25 8:00 PM) 18 br/min (09/20/25 1:30 PM) Temperature [96.8-100.4 DegF] 97.7 DegF (09/20/25 8:00 PM) 98.2 DegF (09/20/25 1:30 PM) Mode of Delivery (Oxygen) Room air (09/20/25 8:00 PM) Room air (09/20/25 1:30 PM) Blood pressure sites Arm, right (09/20/25 8:00 PM) Arm, right (09/20/25 1:30 PM) Temperature Route Oral (09/20/25 8:00 PM) Oral (09/20/25 1:30 PM) Social History Social History Type Response Smoking Status 10 or more cigarette s (1/2 pack or more)/day in last 30 days; Type: Cigarettes entered on: 07/18/22 Sexual Orientation Self described orien tation: ; Straight or heterosexual Sex Sex Representation Male (finding) Status N/A EKG study * Event Display: EKG Authored Date: Note * Rock Garcia DO: PERFORM Event Display: Patient Education Leaflets Authored Date: Chronic Cough with??Uncertain Cause (Adult) ?? [id number] Chronic Cough with??Uncertain Cause (Adult) Everyone has had a cough as part of the common cold, flu, or bronchitis. This kind of cough occurs along with an achy feeling, low-grade fever, nasal and sinus congestion, and a scratchy or sore throat. This usually gets better in 2 to 3 weeks. A cough that lasts longer than 8 weeks may be due to other causes. Your health care provider may refer to this as a chronic cough. If your cough does not improve over the next 2 weeks, further testing may be needed. Follow up withyour health care provider as advised. Cough suppressants may be recommended. Based on your exam today, the exact cause of your cough is not certain. Below are some common causes of a chronic cough. Smoker's cough A smoker???s cough doesn???t go away. If you continue to smoke, it only gets worse. The cough is from irritation in the air passages. Talk to your health care provider about quitting. Medicines or nicotine-replacement products, like gum or the patch, may make quitting easier. ?? Postnasal drip A cough that is worse at night may be due to postnasal drip. Excess mucus in the nose drains from the back of your nose to your throat. This sets off the cough reflex. Postnasal drip may be due to a sinus infection or allergy. Common allergens include dust, tobacco smoke (both inhaled and secondhand smoke), environmental pollutants, pollen, mold, pets, cleaning agents, room deodorizers, and chemical fumes. Kciz-pia-abedudz antihistamines or decongestants may be helpful for allergies. A sinus infection may need antibiotic treatment. See your health care provider if symptoms continue. ?? Medicines Certain prescribed medicines can cause a chronic cough in some people: ??? LYUDMILA inhibitors for high blood pressure. These include enalapril, lisinopril, and others. ??? Beta-blockers for high blood pressure and other conditions. These include propranolol, metoprolol, andothers. Let your health care provider know if you are taking any of these. A chronic cough may mean your medicine needs to be changed. ?? Asthma A cough may be the only sign of mild asthma. You may have tests to find out if asthma is causing your cough. You may also take asthma medicine on a trial basis. ?? Acid reflux (heartburn, GERD) The esophagus is the tube that carries food from the mouth to the stomach. A valve at its lower endprevents stomach acids from flowing upward. If this valve does not work correctly, acid from the stomach enters the esophagus. This may cause a burning pain in the upper abdomen or lower chest, belching, or cough. Symptoms are often worse when lying flat. Stay away from eating or drinking before bedtime. Try using extra pillows to raise your upper body, or place 4- inch blocks under the head of your bed. You may try an tmau-aat-oiwgqlg (OTC) antacid or an acid-blocking medicine, such as cimetidine, or omeprazole. Stronger medicines for this condition can be prescribed by your health care provider. Ask your provider which OTC medicine to use. Depending on your current medicines, some OTC medicines may cause drug interactions and should not be used. ?? Follow-up care Follow up with your health care provider, or as advised, if your cough doesn't improve. Further testing may be needed. Note: If an X-ray is taken, you'll be informed of any new findings that may affect your care. ?? When to get medical advice Contact your health care provider right away if any of these occur: ??? Mild wheezing or trouble breathing ??? Fever of 100.4??F (38??C) or higher, or as advised by your provider ??? Unexpected weight loss ??? Coughing up large amounts of colored sputum or blood-tinged sputum ??? Night sweats (sheets and pajamas get soaking wet) ?? Call 911 Call 911 if either of these occur: ??? Coughing up blood ??? Moderate to severe trouble breathing or wheezing ?? Last Reviewed Date: 2024 00:00:00 ?? [id number] [employer]. All rights reserved. This information is not intended as a substitute for professional medical care. Always follow your healthcare professional's instructions. ?? * Rock Garcia DO: PERFORM Event Display: Patient Education Leaflets Authored Date: [id number] Hemoptysis ?? [id number] Hemoptysis Hemoptysis is the medical term for coughing up blood. Many things, including minor illnesses like bronchitis, can cause it. It can also be an early sign of a more serious illness, like a blood clot in the lung (pulmonary embolism), cancer, tuberculosis, or pneumonia. Less common causes of hemoptysis can be hard to diagnose in an emergency room or a clinic. More testing will be needed if the symptoms continue. Home care ??? Stay away from cigarette smoke. Smoke irritates the bronchial passages. ??? Unless you are taking daily aspirin to prevent stroke or heart attack, don't take aspirin or products that contain aspirin. Check with your health care provider to see if you should continue the aspirin or when you should restart it if you develop hemoptysis. Aspirin affects how easily the blood clots. Medicines that prevent clotting may make hemoptysis worse. ??? If you have a lung infection, drink extra fluid. This will help loosen lung secretions. ??? Oczu-kij-khpicag (OTC) cough medicines that contain dextromethorphan may help reduce coughing. Note: Check with your provider before taking dextromethorphan or other OTC medicines if you have a chronic illness, are , or take daily prescribed medicines. ??? If you were prescribed an antibiotic, take it until it's all gone. Take it even if you're feeling better after only a few days. ?? Follow-up care Follow up with your health care provider, or as advised. ?? When to call your doctor Contact your health care provider right away if you have: ??? A fever of 100.4??F (38??C) or higher, or as advised by your provider ?? Call 911 Call 911 if: ??? You cough up more blood. ??? You have trouble breathing, wheezing, or pain with breathing. ??? You have chest pain or chest pressure. ??? You faint or lose consciousness. ??? You have a fast heartbeat. ??? You feel weak or dizzy. ??? You have a feeling of doom. ?? Last Reviewed Date: 2024 00:00:00 ?? [id number] [employer]. All rights reserved. This information is not intended as a substitute for professional medical care. Always follow your healthcare professional's instructions. ?? Patient Care team information Care Team Personnel Name: Michelle Campbell CNM Position: Reference Physician Member Role: Primary Care Nurse Address: [address] [place] [address] [employer], [place], [place] [id number] Telecom: Name: Marisel Esparza RN Position: [facility] RN Member Role: Primary Care Nurse Name: Liz Gonzalez RN Position: [facility] RN Member Role: Primary Care Nurse Name: Chivo Levine RN Position: [facility] RN Member Role: Primary Care Nurse Name: Cayetano Jain RN Position: [facility] ED RN W/OE and Tasks Member Role: Primary Care Nurse Name: Briseyda Osuna RN Position: [facility] RN Member Role: Primary Care Nurse Name: Missy Hassan NP Position: [facility] Associate Professional Member Role: Primary Care Nurse Address: [address] [place] [address] [place] [address]- Telecom: Name: Mercy Turner RN Position: S RN Member Role: Primary Care Nurse Name: Tanya Suarez RN Position: [facility] ED RN W/OE and Tasks Member Role: Primary Care Nurse Name: Kervin Almeida RN Position: S RN Member Role: Primary Care Nurse Name: Loraine Soto Position: [facility] RN Supv Member Role: Primary Care Nurse Name: Pearl Banks RN Position: [facility] RN Member Role: Primary Care Nurse Name: July Abdi RN Position: [facility] RN Member Role: Primary Care Nurse Name: Alessia Campos RN Position: [facility] RN Member Role: Primary Care Nurse Name: Sydnee Florentino RN Position: [facility] RN Member Role: Primary Care Nurse Name: Gisell Arroyo RN Position: [facility] SN RN Member Role: Primary Care Nurse Name: Briseida Lopez RN Position: [facility] RN Supv Member Role: Primary Care Nurse Name: Aisha Gilmore RN Position: [facility] ED RN W/OE and Tasks Member Role: Primary Care Nurse Name: Autumn Trejo NP Position: [facility] Associate Professional Member Role: Primary Care Nurse Name: Parish Shirley MD Position: [facility] Renal MD Member Role: Lifetime Consulting Physician Address: [address] [place] [address] [address] [facility] [place], [place] [id number] Telecom: Name: Evelyne Del Valle LPN Position: [facility] RN Member Role: Primary Care Nurse Name: Shadia So MD Position: [facility] Outreach Member Role: Lifetime Consulting Physician Name: Wade Cook RN Position: [facility] SN RN Member Role: Primary Care Nurse Name: Erika Cotsa RN Position: [facility] RN Member Role: Primary Care Nurse Name: Jaimie Diaz RN Position: [facility] SN RN Member Role: Primary Care Nurse Name: Karly Looney RN Position: [facility] Speech Communication Instructor Member Role: Primary Care Nurse Name: Isatu Horowitz RN Position: [facility] RN Member Role: Primary Care Nurse Name: Ginna Hassan RN Position: [facility] RN Member Role: Primary Care Nurse Name: Jose Valdez RN Position: [facility] Outreach Member Role: Primary Care Nurse Name: Haseeb Ceballos RN Position: [facility] RN Member Role: Primary Care Nurse Name: Mercy Win RN Position: [facility] YOVANI Nurse Member Role: Primary Care Nurse Name: Liz Brown RN Position: [facility] RN Member Role: Primary Care Nurse Name: Jj Miguel RN Position: [facility] RN Member Role: Primary Care Nurse Name: Jeanmarie Mccrary RN Position: [facility] RN Member Role: Primary Care Nurse Name: Shai Sanders RN Position: [facility] RN Member Role: Primary Care Nurse Name: Natasha Garcia RN Position: [facility] RN Member Role: Primary Care Nurse Name: Mercy Bernal RN Position: [facility] RN Member Role: Primary Care Nurse Name: Mercy Scott RN Position: [facility] RN Member Role: Primary Care Nurse Name: Earl Cha III, RN Position: [facility] RN Member Role: Primary Care Nurse Name: Sima Torres RN Position: [facility] RN Supv Member Role: Primary Care Nurse Name: Sharon Vaz RN Position: [facility] RN Member Role: Primary Care Nurse Name: Erna Duron RN Position: [facility] ED RN W/OE and Tasks Member Role: Primary Care Nurse Name: Neeraj Munguia RN Position: [facility] RN Member Role: Primary Care Nurse Name: Mireille Child RN Position: [facility] AMB Nurse Member Role: Primary Care Nurse Name: Romero Douglas MD Position: [facility] Outreach Member Role: Lifetime Consulting Physician Address: [address] [facility] [address] [facility] [place], [address] Telecom: Name: Lata Cuevas RN Position: [facility] RN Member Role: Primary Care Nurse Name: Devaughn Gonzalez RN Position: [facility] RN Member Role: Primary Care Nurse Name: Bela Curtis MD Position: [facility] Physician - Behavioral Health Member Role: Lifetime Consulting Physician Address: [address] [facility], [address] Telecom: Name: Mor Liu MD Position: [facility] Renal MD Member Role: Lifetime Consulting Physician Address: [address] [facility] [address] [facility] [address] Telecom: Name: Fransisca Ochoa RN Position: [facility] RN Member Role: Primary Care Nurse Name: Liz Rodriguez RN Position: [facility] RN Member Role: Primary Care Nurse Name: Aisha Landry RN Position: [facility] RN Member Role: Primary Care Nurse Name: Randa Zamarripa RN Position: [facility] RN Member Role: Primary Care Nurse Name: Sumeet Cotto RN Position: [facility] RN Member Role: Primary Care Nurse Name: Shahnaz Ramirez RN Position: [facility] Speech Communication Instructor Member Role: Primary Care Nurse Name: Courtney March RN Position: [facility] Speech Communication Instructor Member Role: Primary Care Nurse Care Team Related Persons Name: ABDIRAHMANELADIA JENSEN Name: JOSELIN ROMERO Name: [facility] Insurance Providers Guarantor name: [facility] Information #: 1 Payer: [employer] Payer Identifier: SRIKANTH Member Number: [id number] Group Number: [id number] Subscriber Identifier: [id number] Relationship to Subscriber: self Coverage Type: MEDICAID Coverage Verification Date: Telecom: SRIKANTH Address:
--- OUTSIDE RECORDS SUMMARY | 2025-09-25 14:00 | XMS_ITS | Encounter Summary ---
Author Organization [employer] Address [address] [place] [address] 7 [place] [address] Care Team Providers Care Lead Handler Name Role Phone Alba So NP Primary Care Provider [phone] Reason for Referral * Hospital - Outpatient (Routine) - Pending Review Specialty Diagnoses / Procedures Referred By Merle calvillo Referred To Contact Diagnoses Hypersomnolence Procedures Polysomnography Alba So NP [address] [place] [address] Phone: tel: fax: [address] [phone] Phone: tel: fax: Referral ID Status Reason Start Date Expiration Date V isits Requested Visits Authorized [id number] Pending Review 09/25/2025 09/25/2026 1 1 Reason for Visit * Reason Comments Annual Exam Encounter Details Date Type Department Care Team (Latest Contact Info) Description 09/25/2025 2:00 PM EST Office Visit [facility] [address] [place] [address] Alba So NP [address] [place], [place] [phone] Hypomagnesemia (Primary Dx); Hypersomnolence; Dietary counseling; Exercise counseling Social History Tobacco Use Types Packs/Day Years Used Date Smoking Tobacco: Every Day Cigarettes Passive Smoke Exposure: Current Smokeless Tobacco: Never Alcohol Use Standard Drinks/Week Comments Never 0 (1 standard drink = 0.6 oz pur e alcohol) Alcohol Answer Date Recorded How often do you have a drink containing alcohol ? 0 09/25/2025 How many drinks containing a lcohol do you have on a typical day when you are drinking? 0 09/25/2025 How often do you have six or more drinks on one occasion? 0 09/25/2025 Depression Answer Date Recorded Patient Health Questionnaire-9 Score 10 09/25/2025 Patient Health Questionnaire-9 Score 10 09/25/2025 Last PHQ-9: Questionnaire Data Not on file 1 11/26/2024 Housing Stability Answer Date Recorded What is [...] Answer Date Recorded Patient Health Questionnaire-2 Score 5 09/25/2025 Internet Access Answer Date Recorded Internet Access [...] Sign Reading Time Taken Comments Blood Pressure 132/88 09/25/2025 2:09 PM EST Pulse 84 09/25/2025 2:09 PM EST Temperature 36.4 C (97.6 F) 09/25/2025 2:09 PM EST Respiratory Rate 21 09/25/2025 2:09 PM EST Oxygen Saturation 98% 09/25/2025 2:09 PM EST Inhaled Oxygen Concentration - - Weight 90.3 kg (199 lb) 09/25/2025 2:09 PM EST Height 170.2 cm (5' 7 ) 09/25/2025 2:09 PM EST Body Mass Index 31.17 09/25/2025 2:09 PM EST documented in this encounter Functional Status * Audit Alcohol Screening Question Answer Date of Assessment Author AUDIT screening declined yes 09/25/2025 2:31 PM EST Alba So NP * Over the past 2 weeks, how often have you been bothered by any of the following problems? Question Answer Date of Assessment Author Patient Health Questionnaire -2 Score 5 09/25/2025 2:44 PM EST Anastacio Braxton MA * Little interest or pleasure in doing things Answer Date of Assessment Author Nearly every day 09/25/2025 2:44 PM EST Anastacio Braxton MA * Feeling down, depressed, or hopeless Answer Date of Assessment Author More than half the days 09/25/2025 2:44 PM EST Anastacio Zamora MA * Trouble falling or staying asleep, or sleeping too much Answer Date of Assessment Author More than half the days 09/25/2025 2:44 PM EST Anastacio Zamora MA * Feeling tired or having little energy Answer Date of Assessment Author Nearly every day 09/25/2025 2:44 PM EST Anastacio Braxton MA * Poor appetite or overeating Answer Date of Assessment Author Not at all 09/25/2025 2:44 PM EST Anastacio Braxton MA * Feeling bad about yourself - or that you are a failure or have let yourself or your family down Answer Date of Assessment Author Not at all 09/25/2025 2:44 PM EST Anastacio Braxton MA * Trouble concentrating on things, such as reading the newspaper or watching television Answer Date of Assessment Author Not at all 09/25/2025 2:44 PM Anastacio Del Rosario MA * Moving or speaking so slowly that other people could have noticed? Or the opposite - being so fidgety or restless that you have been moving around a lot more than usual. Answer Date of Assessment Author Not at all 09/25/2025 2:44 PM Anastacio Del Rosario MA * Thoughts that you would be better off or hurting yourself in some way Answer Date of Assessment Author Not at all 09/25/2025 2:44 PM Anastacio Del Rosario MA * Patient Health Questionnaire-9 Score Answer Date of Assessment Author 10 09/25/2025 2:44 PM Anastacio Del Rosario MA * Over the last 2 weeks, how often have you been bothered by any of the following problems? Question Answer Date of Assessment Author Feeling nervous, anxious, or on edge 1 09/25/2025 2:43 PM Anastacio Del Rosario MA Not being able to stop or co ntrol worrying 1 09/25/2025 2:43 PM Anastacio Del Rosario MA Worrying too much about diff erent things 1 09/25/2025 2:43 PM Anastacio Del Rosario MA Trouble relaxing 2 09/25/2025 2:43 PM Anastacio Riojas MA Being so restless that it is hard to sit still 0 09/25/2025 2:43 PM Anastacio Del Rosario MA Becoming easily annoyed or irritable 2 09/25/2025 2:43 PM Anastacio Del Rosario MA Feeling afraid as if somethi ng awful might happen 2 09/25/2025 2:43 PM Anastacio Del Rosario MA DAKOTA-7 Total Score 9 09/25/2025 2:43 PM Anastacio Del Rosario MA * How difficult have these problems made it for you to do your work, take care of things at home, or get along with other people? Answer Date of Assessment Author Somewhat difficult 09/25/2025 2:44 PM Anastacio Boogie MA documented as of this encounter Plan of Treatment Scheduled Orders Name Type Priority Associated Diagnoses Orde r Schedule Magnesium Lab Routine Hypomagnesemia Expected: 09/25/2025, Expires: 09/25/2026 Polysomnography [facility] Routine Hypersomnolence Expected: 09/25/2025 (Approximate), Expires: 09/25/2026 documented as of this encounter Visit Diagnoses Diagnosis Hypomagnesemia- Primary Disorders of magnesium metabolism Hypersomnolence Hypersomnia, unspecified Dietary counseling Dietary surveillance and counseling Exercise counseling documented in this encounter Additional Health Concerns Assessment Noted Time PHQ-9 Depression Total Score: 10 025 2:44 PM EST documented as of this encounter Care Teams Lead Handler Relationship Specialty Start Date End Date Alba So NP [address] [place] [address] PCP - General Family Medicine 04/14/24 documented as of this encounter
[2025-09-25 16:17] LABS: MANUAL DIFF FLAG NO
[2025-09-25 16:27] LABS: INTERNATIONAL NORM RATIO 1.4 (0.9-1.1); Prothrombin Time 17.5 SEC (11.2-13.5)
[2025-09-25 16:54] LABS: Hematocrit 40.8 % (42.0-52.0); Hemoglobin 13.0 g/dl (14.0-18.0); Imm Gran Abs Auto 0.09 X10*3/uL (0.00-0.03); Imm Gran Pct Auto 1.4 % (0.0-0.4); Lymphocytes Absolute Auto 2.0 X10*3/uL (1.2-4.9); Mean Corpuscular HGB Conc 31.9 g/dl (31.0-36.0); Mean Corpuscular Hemoglobin 26.4 pg (27.0-33.0); Mean Corpuscular Volume 82.8 fL (80.0-98.0); NRBC Abs Auto 0.000 X10*3/uL (0.0-0.012); NRBC Pct Auto 0.0 /100WBC (0.0-0.2); Platelet Count 153 X10*3/uL (160-400); Red Blood Count 4.93 X10*6/uL (4.60-5.80); White Blood Count 6.5 X10*3/uL (4.8-10.8)
[2025-09-25 17:27] LABS: Alanine Aminotransferase 77 U/L (0-40); Albumin Level 4.2 g/dL (3.5-5.0); Alkaline Phosphatase 232 U/L (39-117); Anion Gap 10 (12-20); Aspartate Amino Transferase 58 U/L (5-37); Blood Urea Nitrogen 15 mg/dL (9-16); Calcium 9.4 mg/dL (8.4-10.2); Carbon Dioxide 25 mmol/L (22-29); Chloride 109 mmol/L (96-108); Estimated Glomerular Filt Rate > 60; Magnesium 1.6 mg/dL (1.6-2.6); Potassium 4.3 mmol/L (3.3-5.1); Sodium 140 mmol/L (135-145); Total Protein 7.6 g/dL (6.5-8.0)
--- OUTSIDE RECORDS SUMMARY | 2025-09-26 00:08 | XMS_ITS | Encounter Summary ---
Author Organization [employer] Address [address] [facility] 7 [place] [address] Care Team Providers Care Gill Tender Name Role Phone Nirali Lott Primary Care Provider [phone] Alba So NP Primary Care Provider [phone] Reason for Visit * Reason Onset Date Comments Hospital Follow-up 04/05/2024 Encounter Details Date Type Department Care Team ([facility] st Contact Info) Description 04/05/2024 Telephone [facility]INE [address] [place], [place] [phone] Nirali Lott FNP [address] [place], [place] [phone] Hospital Follow-up Social History Tobacco Use Types [...] from pt requesting a HDF appt. Hospital: [facility] Date of admission: 03/30 Discharge date: 04/01 Diagnosed: Chest Pain documented in this encounter Plan of Treatment Not on file documented as of this encounter Visit Diagnoses Not on filedocumented in this encounter Additional Health Concerns Assessment Noted Time PHQ-9 Depression Total Score: 0 06/03/20 10:05 AM EDT documented as of this encounter Care Teams Gill Tender Relationship Specialty Start Date End Date Nirali Lott FNP [address] [place] [address] PCP - General Family Medicine 07/09/23 04/13/24 Alba So NP [address] [place] [address] PCP - General Family Medicine 04/14/24 documented as of this encounter
--- OUTSIDE RECORDS SUMMARY | 2025-09-26 00:08 | XMS_ITS | Encounter Summary ---
Author Organization [employer] Address [address] [facility] 7t [place] [address] Care Team Providers Care Assistant Program Director Name Role Phone Alba So GENEVA Primary Care Provider [phone] Encounter Details Date Type Department Care Team (Late st Contact Info) Description 04/26/2024 Orders Only [facility] MED[facility]INE [address] [place], [place] [phone] Varun Givens, PharmD [address] [place], [place] [phone] Social History Tobacco Use Types Packs/Day Years [...] as of this encounter Care Teams Assistant Program Director Relationship Specialty Start Date End Date Alba So NP [address] [place] [address] PCP - General Family Medicine 04/14/24 documented as of this encounter
--- OUTSIDE RECORDS SUMMARY | 2025-09-26 00:10 | XMS_ITS | Encounter Summary ---
Author Organization [employer] Address [address] [facility] 7 [place] [address] Care Team Providers Care Java Lead Engineer Name Role Phone Nirali Lott Primary Care Provider [phone] Alba So NP Primary Care Provider [phone] Reason for Visit * Reason Onset Date Comments Referral 10/16/2023 Encounter Details Date Type Department Care Team ([facility] st Contact Info) Description 10/16/2023 Telephone [facility] [address] [place], [place] [phone] Nirali Lott FNP [address] [place], [place] [phone] Referral Social History Tobacco Use Types Packs/Day [...] - 10/16/2023 10:22 AM EST Tc from [facility] ortho never received referral. documented in this encounter Plan of Treatment Not on file documented as of this encounter Visit Diagnoses Not on filedocumented in this encounter Additional Health Concerns Assessment Noted Time PHQ-9 Depression Total Score: 0 06/03/20 23 10:05 AM EDT documented as of this encounter Care Teams Java Lead Engineer Relationship Specialty Start Date End Date Nirali Lott FNP [address] [place] [address] PCP - General Family Medicine 07/09/23 04/13/24 Alba So NP [address] [place] [address] PCP - General Family Medicine 04/14/24 documented as of this encounter
--- OUTSIDE RECORDS SUMMARY | 2025-09-26 00:10 | XMS_ITS | Encounter Summary ---
Author Organization [employer] Address [address] [facility] 7t [place] [address] Care Team Providers Care Airline Reservationist Name Role Phone Nirali Lott Primary Care Provider [phone] Alba So NP Primary Care Provider [phone] Encounter Details Date Type Department Care Team (Late st Contact Info) Description 10/27/2023 Orders Only [facility] [address] [place] [address] Nirali Lott FNP [address] [facility] [place] [address] Infective endocarditis of tricuspid valve (Primary Dx) [...] PM EST Narrative 11/02/2023 11:06 AM EST [place] [address] [address] Scan Report Signed Patient: Norberto Marquez MR#: [id number] : 1990 Acct:[id number] Age/Sex: 33 / M ADM Date: 10/27/23 Loc: HO.CT Attending Dr: Randa Chisholm MD Ordering Physician: Randa Chisholm MD Date of Service: 10/27/23 Procedure(s): CT liver 3 phase Accession Number(s): [id number] cc: Randa Chisholm MD; [facility] EXAMINATION: CT ABDOMEN without and WITH [...] in OV> 11/02/23 1101 DD/ 1635 TD/TT: Facilities Maintenance Technician: SS Procedure Note Donotuseinterpreter, Image - 11/03/[address] [address] [address] Scan Report Signed Patient: Zully Marquez#: [id number] : 1990Acct:[id number] Age/Sex: 33 / MADM Date: 10/27/23 Loc: HO.CT Attending Dr: Randa Chisholm MD Ordering Physician: Randa Chisholm MD Date of Service: 10/27/23 Procedure(s): CT liver 3 phase Accession Number(s): [id number] cc: Randa Chisholm MD; [facility] EXAMINATION: CT ABDOMEN without and WITH [...] in OV> 11/02/23 1101 DD/ 1635 TD/TT: Facilities Maintenance Technician: SS [facility] External Provider IMG CT PROCEDURES Final Result documented in this encounter Visit Diagnoses Diagnosis Infective endocarditis of tricuspid valve- Primary documented in this encounter Additional Health Concerns Assessment Noted Time PHQ-9 Depression Total Score: 0 06/03/20 23 10:05 AM EDT documented as of this encounter Care Teams Airline Reservationist Relationship Specialty Start Date End Date Nirali Lott FNP [address] [place] [address] PCP - General Family Medicine 07/09/23 04/13/24 Alba So NP [address] [place] [address] PCP - General Family Medicine 04/14/24 documented as of this encounter
--- OUTSIDE RECORDS SUMMARY | 2025-09-26 00:10 | XMS_ITS | Encounter Summary ---
Author Organization [employer] Address [address] [facility] 7 [place] [address] Care Team Providers Care Video Coordinator Name Role Phone Nirali Lott Primary Care Provider [phone] Alba So NP Primary Care Provider [phone] Reason for Visit * Reason Onset Date Comments PT1 10/02/2023 Encounter Details Date Type Department Care Team ([facility] st Contact Info) Description 10/02/[address] [facility] MEDICINE [address] [place], [place] [phone] Nirali Lott FNP [address] [place] [address] PT1 Social History Tobacco Use Types Packs/Day [...] 10/02/2023 11:00 AM EST PT-1 Request Number [id number] is Pending * Telephone Encounter - Christine Mak - 10/02/2023 10:32 AM EST Tc alanna Nancy with ICP requesting PT1 transportation. Date: 10/20/2022 Time: 10:15 Visits: 12 a year Address: [address] [place] [address] Facility: [facility] Wheel Chair: n/a Matrix Bath Operator Needed: n/a documented in this encounter Plan of Treatment Not on file documented as of this encounter Visit Diagnoses Not on filedocumented in this encounter Additional Health Concerns Assessment Noted Time PHQ-9 Depression Total Score: 0 06/03/20 23 10:05 AM EDT documented as of this encounter Care Teams Video Coordinator Relationship Specialty Start Date End Date Nirali Lott FNP [address] [place] [address] PCP - General Family Medicine 07/09/23 04/13/24 Alba So NP [address] [place] [address] PCP - General Family Medicine 04/14/24 documented as of this encounter
--- OUTSIDE RECORDS SUMMARY | 2025-09-26 00:10 | XMS_ITS | Encounter Summary ---
Author Organization [facility] Address [address] [place] [address] Phone Care Team Providers Care Gasket Inspector Name Role Phone Pcp, Unknown Primary Care Provider Unavailabl e Encounter Details Date Type Department Care Team (Late st Contact Info) Description 04/08/2023 Transcribe Orders [facility] Specimen Processing [address] [place] [address] Martinez Rendon MD [address] [facility], [address], [address] [place] [address] [email or web address] Congestive heart failure, unspecified HF [...] 7:23 PM EDT Aisha Zelaya, RN * [place] Suicide Severity Rating Scale (Screener/Recent Self-Report) Question [...] EDT) SODIUM 140 133 - 146 mmol/L [facility] POTASSIUM 3.8 3.3 - 5.1 mmol/L [facility] CHLORIDE 108 96 - 108 mmol/L [facility] CO2 18(L) 21 - 35 mmol/L [facility] BUN 9 6 - 19 mg/dL [facility] CREATININE 0.70 0.5 - 1.5 mg/dL [facility] GLUCOSE 78 70 - 99 mg/dL [facility] ALBUMIN 3.7(L) 3.9 - 4.8 g/dL [facility] TOTAL PROTEIN 6.9 6.5 - 8.0 g/dL [facility] CALCIUM 8.9 8.4 - 10.3 mg/dL [facility] ALKALINE PHOSPHATASE 144(H) 39 - 117 U/L [facility] TOTAL BILIRUBIN 1.5(H) 0.0 - 1.2 mg/dL [facility] AST 13 0 - 37 U/L [facility] ALT 7 0 - 40 U/L [facility] GLOBULIN 3.2 1 - 4.8 g/dL [facility] EGFR >120 >59 mL/min/1.7 3m2 [facility] Comment:Estimated glomerular filtration rate calculated using the CKD-EPI refit equation. ANION GAP 18 10 - 20 mmol/L [facility] 04/08/2023 5:55 AM EDT 04/08/2023 8:22 AM EDT us Martinez Rendon MD LAB BLOOD BKR ORDERABLES Final R esult [address] [address] documented in this encounter Visit Diagnoses Diagnosis Congestive heart failure, unspecified HF chronicity, unspecified heart failure type- Primary documented in this encounter Care Teams Gasket Inspector Relationship Specialty Start Date End Date Pcp, Unknown PCP - General 12/06/19 documented as of this encounter Additional Source Comments The information contained in this document represents components of the legal health record. It is not the complete legal health record.[facility]
--- OUTSIDE RECORDS SUMMARY | 2025-09-26 00:11 | XMS_ITS | Encounter Summary ---
Author Organization [employer] Address [address] [facility] 7t [place] [address] Care Team Providers Care Claim Processor Name Role Phone Megan Stevenson ORNAMENTAL METAL FABRICATOR APPRENTICE Primary Care Provider Madisyn Jin [place] AGNP Primary Care Provider Nirali Keene ORNAMENTAL METAL FABRICATOR APPRENTICE Primary Care Provider [phone] Alba So NP Primary Care Provider [phone] Encounter Details Date Type Department Care Team (Late st Contact Info) Description 01/05/2023 Orders Only [facility] W[facility] [address] [place] [address] Nohemi Greene FNP Social History Tobacco Use [...] empyema, recurrent bacteremia and endocarditis,[place] [facility] [place] evaluation of chest pain where he was found to have multiple issues including hypotenstion, LUCERO, septic shock secondary to GBS bacteremia (initially requiring pressor support), PE/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 Presenting today with SOB on exertion. Mom reports he has to stop on every floor to catch his breath (they live on 4th floor). Pt reports the SOB has been going on for months. He was sectioned by mom and was in a program in [place] and [facility] October 23, now lives at [...] EDT 04/13/2023 3:00 PM EDT Comment:Blood Narrative [facility] - 04/18/2023 5:00 PM EDT Blood Culture (Second) No growth after 5 days. Specimen Source: Blood [facility] Exter nal Provider LAB MICROBIOLOGY - GENERAL ORDERABLES Final Result Performing Organization Address [facility] Co de Phone Number [facility] [address] [place] [phone] * Blood Culture (First) (04/13/2023 2:20 PM EDT) Blood 04/13/2023 2:20 PM EDT 04/13/2023 3:00 PM EDT Comment:Blood Narrative [facility] - 04/18/2023 5:00 PM EDT Blood Culture (First) No growth after 5 days. Specimen Source: Blood [facility] Exter nal Provider LAB MICROBIOLOGY - GENERAL ORDERABLES Final Result Performing Organization Address [facility] de Phone Number [facility] [address] [place] [phone] * (ABNORMAL) Urinalysis, Complete, with Reflex to Culture (03/16/2023 6:50 PM EDT) Color Urine Dark Yellow [facility] Appearance Urine Clear [facility] PH 6.5 5.0 - 9.0 [facility] Glucose Urine UA Negative Negative mg/dL [facility] Urine Blood Small (1+)(A) Negative [facility] Specific Ponce - Urine 1.015 1.005 - 1.025 [facility] Urine Protein 100 (2+)(A) Neg-Trace mg/dL [facility] Urine Ketones Negative Negative mg/dL [facility] Nitrite Urine Positive(A) Negative [facility] Leukocyte Esterase Urine Small (1+)(A) Negative [facility] RBC Urine >20(A) 0 - 2 /HPF [facility] Urine WBC 6-10(A) 0 - 5 /HPF [facility] Urine Squamous Epithelial Cell 0-2 0 - 2 /HPF [facility] Urine Bacteria None Seen None Seen [facility] Hyaline Casts, Urine 0-2 0 - 2 /LPF [facility] 03/16/2023 6:50 PM EDT 03/16/2023 7:08 PM EDT Narrative [facility] - 03/16/2023 7:57 PM EDT Urine, Clean Catch us [facility] External Provider LAB URI NE ORDERABLES Final Result [facility] [address] [place] [phone] * (ABNORMAL) CBC auto differential (03/16/2023 5:18 PM EDT) White Blood Count 11.0(H) 4.8 - 10.8 X10*3/uL [facility] Red Blood Count 4.07(L) 4.60 - 5.80 X10*6/uL [facility] Hemoglobin 9.7(L) 14.0 - 18.0 g/dl [facility] Hematocrit 30.7(L) 42.0 - 52.0 % [facility] Mean Corpuscular Volume 75.4(L) 80.0 - 98.0 fL [facility] Mean Corpuscular Hemoglobin 23.8(L) 27.0 - 33.0 pg [facility] Mean Corpuscular HGB Conc 31.6 31.0 - 36.0 g/dl [facility] Red Cell Distribution Width 31.5(H) 11.0 - 16.0 % [facility] Platelet Count 597(H) 160 - 400 X10*3/uL [facility] Mean Platelet Volume 9.8 9.4 - 12.4 fL [facility] Neutrophils Percent Auto 60.7 45 - 73 % [facility] Imm Gran Pct Auto 2.0(H) 0.0 - 0.4 % [facility] Lymphocytes Percent Auto 24.7 20 - 40 % [facility] Monocytes Percent Auto 10.5 2 - 11 % [facility] Eosinophils Percent Auto 1.1 0 - 4 % [facility] Basophils Percent Auto 1.0 0 - 2 % [facility] NRBC Pct Auto 0.0 0.0 - 0.2 /100WBC [facility] Neutrophils Absolute Auto 6.7 2.0 - 8.3 x10*3/uL [facility] Imm Gran Abs Auto 0.22(H) 0.00 - 0.03 X10*3/uL [facility] Lymphocytes Absolute Auto 2.7 1.2 - 4.9 X10*3/uL [facility] Monocytes Absolute Auto 1.2 0.1 - 1.2 X10*3/uL [facility] Eosinophils Absolute Auto 0.1 0.0 - 0.4 X10*3/uL [facility] Basophils Absolute Auto 0.1 0.0 - 0.2 X10*3/uL [facility] NRBC Abs Auto 0.000 0.0 - 0.012 X10*3/uL [facility] 03/16/2023 5:18 PM EDT 03/16/2023 5:24 PM EDT [facility] External Provider LAB BLO OD ORDERABLES Final Result [facility] [address] [place] [phone] * High Sensitivity Troponin I (03/16/2023 5:18 PM EDT) TROPONIN I HIGH SENSITIVITY 11.4 <3.5 - 35.0 ng/L [facility] Comment:The Coley high sens itivity Troponin-I results should beused in conjunction with other diagnostic information suchas ECG, clinical observations and information, and patientsymptoms to aid in the diagnosis of NV. 03/16/2023 5:18 PM EDT 03/16/2023 5:24 PM EDT [facility] External Provider LAB BLO OD ORDERABLES Final Result Performing Organization Address [facility] de Phone Number [facility] [address] [place] [phone] * (ABNORMAL) B Type Natriuretic Peptide (BNP) (03/16/2023 5:18 PM EDT) [facility] B Type Natriuretic Peptide 378(H) <100 pg/mL [facility] Comment:For those patients w ho are being treated with Natrecor(nesiritide, recombinant BNP), BNP testing should beperformed at least two hours post treatment in order toensure that only endogenous levels of BNP are detected. 03/16/2023 5:18 PM EDT 03/16/2023 5:24 PM EDT [facility] External Provider LAB BLO OD ORDERABLES Final Result Performing Organization Address [facility] de Phone Number [facility] [address] [place] [phone] * (ABNORMAL) Lipase (03/16/2023 5:18 PM EDT) [facility] Lipase 168(H) 8 - 78 U/L [facility] 03/16/2023 5:18 PM EDT 03/16/2023 5:24 PM EDT [facility] External Provider LAB BLO OD ORDERABLES Final Result Performing Organization Address [facility] Co de Phone Number [facility] [address] [place] [phone] * (ABNORMAL) Basic Metabolic Panel (03/16/2023 5:18 PM EDT) [facility] Sodium 139 135 - 145 mmol/L [facility] Potassium 3.0(L) 3.3 - 5.1 mmol/L [facility] Chloride 106 96 - 108 mmol/L [facility] Carbon Dioxide 20(L) 22 - 29 mmol/L [facility] Anion Gap 16 12 - 20 [facility] Urea Nitrogen (BUN) 8(L) 9 - 16 mg/dL [facility] Creatinine, Serum 0.74 0.5 - 1.4 mg/dL [facility] Creatinine Clr Calc Pharmacy 131.5 [facility] Comment:eGFR (calculated fro m the MDRD study equation) and eCrCl(calculated from the Cockcroft-Gault equation) are based ondifferent parameters and may not yield comparable results.If eCrCl result is absurd, please check patient'sheight/weight. Estimated Glomerular Filt Rate >60 [facility] Comment:NOTE: For -Am erican individuals, multiply the result by 1.210.Chronic Kidney Disease: Estimated GFR < 60 mL/min/1.51d2Hcvrxq Kidney Disease: Estimated GFR < 15 mL/min/1.73m2 Glucose 84 60 - 115 mg/dL [facility] Calcium 9.4 8.4 - 10.2 mg/dL [facility] 03/16/2023 5:18 PM EDT 03/16/2023 5:24 PM EDT [facility] External Provider LAB BLO OD ORDERABLES Final Result [facility] [address] [place] [phone] * (ABNORMAL) Hepatic Function Panel (03/16/2023 5:18 PM EDT) Bilirubin, Total 5.9(H) 0.0 - 1.0 mg/dL [facility] Bilirubin, Direct 3.5(H) 0.0 - 0.5 mg/dL [facility] Aspartate Amino Transferase 19 5 - 37 U/L [facility] Alanine Aminotransferase 13 0 - 40 U/L [facility] Total Protein 7.7 6.5 - 8.0 g/dL [facility] Albumin Level 3.9 3.5 - 5.0 g/dL [facility] Alkaline Phosphatase 154(H) 39 - 117 U/L [facility] 03/16/2023 5:18 PM EDT 03/16/2023 5:24 PM EDT [facility] External Provider LAB BLO OD ORDERABLES Final Result Performing Organization Address City/[facility] Co de Phone Number [facility] [address] [place] [phone] * Lactic Acid (03/16/2023 5:18 PM EDT) Lactic Acid 1.7 0.5 - 2.0 mmol/L [facility] 03/16/2023 5:18 PM EDT 03/16/2023 5:24 PM EDT [facility] External Provider LAB BLO OD ORDERABLES Final Result Performing Organization Address [facility] Co de Phone Number [facility] [address] [place] [phone] documented in this encounter Visit Diagnoses Not on filedocumented in this encounter Care Teams Claim Processor Relationship Specialty Start Date End Date Megan Stevenson FNP PCP - General Family Medicine 03/27/22 04/23/23 Jin Mack AGNP PCP - General Family Medicine 04/24/23 07/08/23 Nirali Lott FNP [address] [place] [phone] PCP - General Family Medicine 07/09/23 04/13/24 Alba So NP [address] [place] [address] PCP - General Family Medicine 04/14/24 documented as of this encounter
--- OUTSIDE RECORDS SUMMARY | 2025-09-26 00:11 | XMS_ITS | Encounter Summary ---
Author Organization [facility] Address [address] [place] [phone] Phone Care Team Providers Care Supervisor Sandblaster Name Role Phone Pcp, Unknown Primary Care Provider Unavailabl e Encounter Details Date Type Department Care Team (Late st Contact Info) Description 10/20/2023 Transcribe Orders Virtual Department [address] [place] [address] Lucy Best PA [address] [place], [place] [phone] [email or web address]. Anemia, unspecified type (Primary Dx) Social History [...] Primary documented in this encounter Care Teams Supervisor Sandblaster Relationship Specialty Start Date End Date Pcp, Unknown PCP - General 12/06/19 documented as of this encounter Additional Source Comments The information contained in this document represents components of the legal health record. It is not the complete legal health record.[facility]
--- OUTSIDE RECORDS SUMMARY | 2025-09-26 00:11 | XMS_ITS | Encounter Summary ---
Author Organization [facility] Address [address] [place] [phone] Phone Care Team Providers Care Manager Managed Care Name Role Phone Pcp, Unknown Primary Care Provider Unavailabl e Encounter Details Date Type Department Care Team (Late st Contact Info) Description 10/28/2023 Procedure Pass [facility] Endoscopy Admitting Dept Virtual Department [address] [place] [address] Social History Tobacco Use Types Packs/Day Years [...] on filedocumented in this encounter Care Teams Manager Managed Care Relationship Specialty Start Date End Date Pcp, Unknown PCP - General 12/06/19 documented as of this encounter Additional Source Comments The information contained in this document represents components of the legal health record. It is not the complete legal health record.[facility]
--- OUTSIDE RECORDS SUMMARY | 2025-09-26 00:11 | XMS_ITS | Encounter Summary ---
Author Organization [employer] Address [address] [facility] [address] [place] [address] Care Team Providers Care Nicu Rn Name Role Phone Alba So NP Primary Care Provider [phone] Encounter Details Date Type Department Care Team (Late st Contact Info) Description 12/21/2024 Orders Only [facility] [address] [place] [address] Alba So NP [address] [place] [address] Social History Tobacco Use Types Packs/Day Years [...] documented as of this encounter Care Teams Nicu Rn Relationship Specialty Start Date End Date Alba So NP [address] [place] [address] PCP - General Family Medicine 04/14/24 documented as of this encounter
--- OUTSIDE RECORDS SUMMARY | 2025-09-26 00:11 | XMS_ITS | Encounter Summary ---
Author Organization [employer] Address [address] [facility] [address] [place] [address] Care Team Providers Care Clay House Worker Name Role Phone Nirali Lott Primary Care Provider [phone] Alba So NP Primary Care Provider [phone] Reason for Visit * Reason Onset Date Comments PT1 08/05/2023 Encounter Details Date Type Department Care Team ([facility] st Contact Info) Description 08/05/2023 Telephone [facility] MED[facility] [address] [place], [place] [phone] Nirali Lott FNP [address] [place] [address] PT1 Social History Tobacco Use Types Packs/Day [...] 08/05/2023 1:12 PM EDT PT-1 Request Number [id number] is Pending * Telephone Encounter - Sage Telles - 08/05/2023 12:36 PM EDT Tc alanna Manley with [facility] Partner requesting a PT1: Name of facility: [facility] Specialty: Consult possible liver transplant Location: [address] [place] [address] Date: 08/12/2023 Time: 11:00 am fax: n/a wheelchair: no Milling Machine Operator: no All future appt's documented in this encounter Plan of Treatment Not on file documented as of this encounter Visit Diagnoses Not on filedocumented in this encounter Additional Health Concerns Assessment Noted Time PHQ-9 Depression Total Score: 0 06/03/20 10:05 AM EDT documented as of this encounter Care Teams Clay House Worker Relationship Specialty Start Date End Date Nirali Lott FNP [address] [place] [address] PCP - General Family Medicine 07/09/23 04/13/24 Alba So NP [address] [place] [address] PCP - General Family Medicine 04/14/24 documented as of this encounter
--- OUTSIDE RECORDS SUMMARY | 2025-09-26 00:11 | XMS_ITS | Encounter Summary ---
Author Organization [facility] Address [address] [place] [phone] Phone Care Team Providers Care Research Soil Scientist Name Role Phone Pcp, Unknown Primary Care Provider Unavailabl e Encounter Details Date Type Department Care Team ([facility] st Contact Info) Description 09/16/2023 Procedure Pass [facility] Endoscopy Admitting Dept Virtual Department [address] [place] [address] Social History Tobacco Use Types Packs/Day Years [...] on filedocumented in this encounter Care Teams Research Soil Scientist Relationship Specialty Start Date End Date Pcp, Unknown PCP - General 12/06/19 documented as of this encounter Additional Source Comments The information contained in this document represents components of the legal health record. It is not the complete legal health record.[facility]
--- OUTSIDE RECORDS SUMMARY | 2025-09-26 00:11 | XMS_ITS | Clinical Summary ---
Author Organization [facility] Address [address] [place] [phone] Phone Care Team Providers Care Auxiliary Equipment Operator Name Role Phone Pcp, Unknown Primary [...] EDT) SODIUM 140 133 - 146 mmol/L [facility] POTASSIUM 4.2 3.3 - 5.1 mmol/L [facility] CHLORIDE 109(H) 96 - 108 mmol/L [facility] CO2 19(L) 21 - 35 mmol/L [facility] BUN 10 6 - 19 mg/dL [facility] CREATININE 0.80 0.5 - 1.5 mg/dL [facility] GLUCOSE 67(L) 70 - 99 mg/dL [facility] ALBUMIN 3.7(L) 3.9 - 4.8 g/dL [facility] TOTAL PROTEIN 6.7 6.5 - 8.0 g/dL [facility] CALCIUM 8.8 8.4 - 10.3 mg/dL [facility] ALKALINE PHOSPHATASE 137(H) 39 - 117 U/L [facility] TOTAL BILIRUBIN 1.3(H) 0.0 - 1.2 mg/dL [facility] AST 13 0 - 37 U/L [facility] ALT 6 0 - 40 U/L [facility] GLOBULIN 3.0 1 - 4.8 g/dL [facility] EGFR 119 >59 mL/min/1.7 3m2 [facility] Comment:Estimated glomerular filtration rate calculated using the CKD-EPI refit equation. ANION GAP 16 10 - 20 mmol/L [facility] Blood 04/13/2023 6:42 AM EDT 04/13/2023 11:39 AM EDT us Martinez Rendon MD LAB BLOOD BKR ORDERABLES Final R esult [facility] [address] [place] [address] from Last 3 Months or Most Recently Relevant to Health Maintenance Insurance C3 ACO C3 ACO C3 ACO C3 ACO C3 ACO C3 ACO Care Teams Auxiliary Equipment Operator Relationship Specialty Start Date End Date Pcp, Unknown PCP - General 12/06/19 Additional Source Comments The information contained in this document represents components of the legal health record. It is not the complete legal health record.[facility]
--- OUTSIDE RECORDS SUMMARY | 2025-09-26 00:11 | XMS_ITS | Encounter Summary ---
Author Organization [employer] Address [address] [facility] [address] [place] [address] Care Team Providers Care Superintendent Refuse Disposal Name Role Phone Jin Mack AGNYani Primary Care Provider Unavail able Nirali Lott Primary Care Provider [phone] Alba So NP Primary Care Provider [phone] Encounter Details Date Type Department Care Team (Late st Contact Info) Description 06/08/2023 Orders Only [facility] [address] [place] [address] Nirali Lott FNP [address] [place] [address] Chronic hepatitis C without hepatic coma (CMS/HCC) [...] documented as of this encounter Care Teams Superintendent Refuse Disposal Relationship Specialty Start Date End Date Jin Mack AGNP PCP - General Family Medicine 04/24/23 07/08/23 Nirali Lott FNP [address] [place] [address] PCP - General Family Medicine 07/09/23 04/13/24 Alba So NP [address] [place] [address] PCP - General Family Medicine 04/14/24 documented as of this encounter
--- OUTSIDE RECORDS SUMMARY | 2025-09-26 00:11 | XMS_ITS | Encounter Summary ---
Author Organization [employer] Address [address] [facility] [address] [place] [address] Care Team Providers Care Senior It Business Analyst Name Role Phone Alba So GENEVA Primary Care Provider [phone] Encounter Details Date Type Department Care Team (Late st Contact Info) Description 09/25/2025 Orders Only [facility] [address] [place] [address] Nuha Gutierrez RN Social History Tobacco Use Types Packs/Day Years [...] Procedure Name Priority Date/Time Associated Diagnosis Comments CHLAMYDIA/GONORRHEA THROAT SWAB ([place] [facility]) Routine 09/18/2025 CHLAMYDIA/GONORRHEA - URINE ([place] [facility]) Routine 09/18/2025 SYPHILIS ABS ([place] [facility]) Routine 09/18/2025 HEPATITIS C ANTIBODY ([place] [facility]) Routine 09/18/2025 HIV ANTIBODY/ANTIGEN ([place] [facility]) Routine 09/18/2025 documented in this encounter Results * HIV Ab/Ag ([place] [facility]) (09/18/2025) HIV Ag/Ab Nonreactive Blood 09/18/2025 Historical Provider LAB BLOOD ORDERABLES Shruthi l Result * Hepatitis C Antibody ([place] [facility]) (09/18/2025) Hepatitis C Ab Reactive Comment:HCV RNA not detected Blood 09/18/2025 Result [facility] Provider MD LAB BLOOD ORDERABLES Shruthi l Result * Syphilis Antibodies ([facility]) (09/18/2025) Pathologist [facility] Syphilis Abs Nonreactive Borderline, Nonreactive, Weakly Reactive, Inconclusive, Specimen unsatisfactory for evaluation Blood Venous blood specimen / Unknown 09/18/2025 Result [facility] Provider MD LAB BLOOD ORDERABLES Shruthi l Result * Chlamydia/Gonorrhea Throat Swab ([facility]) (09/18/2025) Pathologist [facility] Chlamydia Throat Swab Negative Gonorrhea Throat Swab Negative Swab 09/18/2025 Result [facility] Provider MD LAB MICROBIOLOGY - GENERA L ORDERABLES Final Result * Chlamydia/Gonorrhea, Urine ([facility]) (09/18/2025) Pathologist [facility] Chlamydia, Urine Negative Negative, Indeterminate, None Detected, Trace, 3+, Specimen unsatisfactory for evaluation, Weakly Positive, 1+, 2+ Gonorrhea, Urine Negative Negative, Indeterminate, None Detected, Trace, 3+, Specimen unsatisfactory for evaluation, Weakly Positive, 1+, 2+ Urine 09/18/2025 Result [facility] Provider MD LAB URINE ORDERABLES Shruthi l Result documented in this encounter Visit Diagnoses Not on filedocumented in this encounter Additional Health Concerns Assessment Noted Time PHQ-9 Depression Total Score: 10 025 2:44 PM EST documented as of this encounter Care Teams Senior It Business Analyst Relationship Specialty Start Date End Date Alba So NP [address] [place] [id number] PCP - General Family Medicine 04/14/24 documented as of this encounter
--- OUTSIDE RECORDS SUMMARY | 2025-09-26 00:11 | XMS_ITS | Encounter Summary ---
Author Organization [employer] Address [address] [facility] 7 [place] [address] Care Team Providers Care Cert Pharmacy Tech Name Role Phone Nirali Lott Primary Care Provider [phone] Alba So NP Primary Care Provider [phone] Reason for Referral * Consultation (Routine) - Closed Specialty Diagnoses / Procedures Referred By Merle t Referred To Contact Hand Surgery Diagnoses Pain in finger of left hand Nirali Lott FNP [address] [place] [address] Phone: tel: fax: [facility] [address] [place] [address] [place] [phone] Phone: tel: Referral ID Status Reason Start Date Expiration Date V isits Requested Visits Authorized [id number] Closed Specialty Services Required 12/23/2023 12/22/2024 6 6 Encounter Details Date Type Department Care Team (Late st Contact Info) Description 12/23/2023 Orders Only [facility]S [address] [place] [address] Nirali Lott FNP [address] [place] [address] Pain in finger of left hand (Primary [...] documented as of this encounter Care Teams Cert Pharmacy Tech Relationship Specialty Start Date End Date Nirali Lott FNP [address] [place] [address] PCP - General Family Medicine 07/09/23 04/13/24 Alba So NP [address] [place] [address] PCP - General Family Medicine 04/14/24 documented as of this encounter
--- OUTSIDE RECORDS SUMMARY | 2025-09-26 00:11 | XMS_ITS | Encounter Summary ---
Author Organization [employer] Address [address] [facility] [address] [place] [address] Care Team Providers Care Sr Vice President Name Role Phone Alba So GENEVA Primary Care Provider [phone] Encounter Details Date Type Department Care Team (Latest Contact Info) Description 09/25/2025 Travel Social History Tobacco Use Types Packs/Day [...] AM EDT documented as of this encounter Functional Status * Audit Alcohol Screening Question Answer Date of Assessment Author AUDIT screening declined yes 09/25/2025 2:31 PM Alba Weller NP * Over the past 2 weeks, how often have you been bothered by any of the following problems? Question Answer Date of Assessment Author Patient Health Questionnaire -2 Score 5 09/25/2025 2:44 PM Anastacio Del Rosario MA * Little interest or pleasure in doing things Answer Date of Assessment Author Nearly every day 09/25/2025 2:44 PM Anastacio Del Rosario MA * Feeling down, depressed, or hopeless Answer Date of Assessment Author More than half the days 09/25/2025 2:44 PM Anastacio Riojas [place] * Trouble falling or staying asleep, or sleeping too much Answer Date of Assessment Author More than half the days 09/25/2025 2:44 PM Anastacio Riojas MA * Feeling tired or having little energy Answer Date of Assessment Author Nearly every day 09/25/2025 2:44 PM Anastacio Del Rosario MA * Poor appetite or overeating Answer Date of Assessment Author Not at all 09/25/2025 2:44 PM Anastacio Del Rosario MA * Feeling bad about yourself - or that you are a failure or have let yourself or your family down Answer Date of Assessment Author Not at all 09/25/2025 2:44 PM Anastacio Del Rosario MA * Trouble concentrating on things, such [...] MA Trouble relaxing 2 09/25/2025 2:43 PM EST Anastacio Zamora MA Being so restless that it is [...] Assessment Author Somewhat difficult 09/25/2025 2:44 PM EST Anastacio Garcia MA documented as of this encounter Plan of Treatment Not on file documented as of this encounter Visit Diagnoses Not on filedocumented in this encounter Additional Health Concerns Assessment Noted Time PHQ-9 Depression Total Score: 10 025 2:44 PM EST documented as of this encounter Care Teams Sr Vice President Relationship Specialty Start Date End Date Alba So NP [address] [place] [address] PCP - General Family Medicine 04/14/24 documented as of this encounter
--- OUTSIDE RECORDS SUMMARY | 2025-09-26 00:12 | XMS_ITS | Clinical Summary ---
Author Organization [employer] Address [address] [place] [address] Care Team Providers Care Cork Compounder Name Role Phone Alba So GENEVA Primary Care Provider [phone] Allergies No known active allergies Medications * This document contains information received from the source organization and may not represent a complete record from that organization. gabapentin (Neurontin) 100 MG capsule Take 200 mg by mouth 3 times daily. Active methadone (Dolophine) 10 MG tablet Take 90 mg by mouth Once per day. Take 100 mg by mouth every morning Active thiamine (Vitamin B-1) 100 MG tablet Take 1 tablet by mouth Once per day. 09/29/20 24 Active Blood Pressure kit 1 each 2 [...] mouth Once per day. 90 tablet 07/18/20 25 Active ferrous sulfate 325 (65 Fe) MG [...] Once per day. 30 tablet 11 08/16/20 25 026 Active Ventolin HFA 108 (90 Base) MCG/ACT inhaler Inhale 1-2 puffs Every 4-6 hours as needed for wheezing. 18 g 1 09/25/20 Active midodrine (Proamatine) 2.5 MG tabletIndicati ons:History of artificial heart valve Take 1 tablet (2.5 mg) by mouth 3 times daily. 90 tablet 11/21/19 025 Discontinued(Me d list cleanup (will not trigger notification to Pharmacy)) Ventolin HFA 108 (90 Base) MCG/ACT inhaler Inhale 1-2 puffs Every 4-6 hours as needed for wheezing. 06/02/20 025 Discontinued(Re order (will not trigger notification [...] treatment, ambulance called and expect called to [facility]. 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 Assessment & Plan (11/21/2024 7:05 PM EST): Pt with complicated hx and difficulty with out patient compliance Meds reconciled with [facility] discharge documents and refilled Pt prefers to seek care at [facility] today for ongoing cardiac issues History [...] POCT rapid strep A manually resulted Sepsis ([facility]) 10/17/2024 Overview (10/17/2024): He has completed six [...] he gets home to be transported to [facility] for stitching as he did not want to be transported directly from the clinic Hx of pulmonary embolus 04/18/2023 Overview (04/18/2023): Treating w/ Xarelto [address] [facility] 03/16/23-04/15/23 (anticipated discharge date) Anemia, chronic disease 10/09/2022 Symptomatic anemia 10/09/2022 Overview (10/09/2022): Acute anemia related to tooth extractions on 10/01/22 while still on xarelto for anticoagulation. Taken to [place] ED, bleeding gums, not able to stop with pressure Hemoglobin 3 Received 1 prbc transfusion Transferred to [facility] for admission on 10/02/22. Received another transfusion Discharged 10/06/22 Ascites 07/21/2022 Bacteremia 07/21/2022 Overview (04/18/2023): Recurrent bacteremia and endocarditis found 03/04/23. Admitted. Left AMA on 03/14/23 Returned 03/15/23. Admitted again with plan to transfer to [facility], to continue antibiotics until 04/15 to [...] dependence (CMS/HCC) 06/27/2022 Overview (08/23/2024): Admitted to [facility] for rehab Treated w/ Methadone [address] [facility] 03/16/23-04/15/23 -referred to [facility] 08/23/24 Assessment & Plan (08/23/2024 2:45 PM EST): Admitted to [facility] for rehab Treated w/ Methadone [address] [facility] 03/16/23-04/15/23 -referred to [facility] 08/23/24 Assessment & [...] 2020 Overview (10/09/2022): 07/16/22 - Presented to [facility] ED with hypotension, found to be in septic shock 07/20/22 - Left [facility] AMA before completing IV antibiotics. Blood cultures positive for GBS and required pressor support when he arrived. 07/21/22 - Mother took Pt to [facility] ED since he left [facility] AMA. Pt IV drug use while [...] tx following now w GI at [facility] per pt Assessment & Plan (06/03/2023 2:07 PM EDT): Patient not sure if he received a referral to [facility] for hep c treatment or not. I will place a referral to our [facility] hep c team. Resolved Problems Problem Noted Date Diagnosed Date Resolved Date Chest pain 10/17/2024 08/16/2025 Elevated troponin 10/17/2024 08/16/2025 Endocarditis 10/17/2024 08/16/2025 Encounters Date Type Department Care Team Description 09/25/2025 2:00 PM EST Office Visit [facility] MEDICINE [address] [place] [phone] Alba So NP Hypomagnesemia (Primary Dx); Hypersomnolence; Dietary counseling; Exercise counseling 09/25/2025 Travel 09/25/2025 Orders Only [facility]ICINE [address] [place] [phone] Nuha Gutierrez RN 09/18/2025 Patient Outreach [facility] [address] [place] [phone] [facility] Supports 09/18/[address] [address] Yesika Gates, NABEEL Hep C management 09/13/2025 Orders Only GENERIC EXTERNAL DATA DEPARTMENT Provider, Generic External Data 09/13/2025 [place] [address] Alba So NP Pre-visit Planning (SDOH screening was completed on 01/19/2025) 08/30/[address] [address] Alba So NP FYI 08/28/2025 1:00 PM EST Office Visit [facility] WALK-IN [address] [address] Tami House MD Cellulitis of lower extremity, unspecified laterality (Primary Dx) 08/28/2025 Travel 08/22/2025 Orders Only GENERIC EXTERNAL DATA DEPARTMENT Provider, Generic External Data 08/18/2025 8:40 AM EDT Office Visit [facility] [address] [address] Mikie Fagan MD Cellulitis of left lower extremity (Primary Dx) 08/18/2025 Travel 08/17/[address] [address] Humaira Bruno RN Hep C 08/16/2025 10:00 AM EDT Office Visit [address] [address] Sabas Junior MD Cellulitis of left lower extremity (Primary Dx); Ulcer of extremity due to chronic venous insufficiency (HCC) 08/16/2025 Travel 08/13/2025 [place] [address] Krystyna Vaughn MD XR Fingers 2+ Views Left 08/11/2025 2:20 PM EDT Office Visit [facility] [address] [address] Krystyna Vaughn MD Finger pain, left (Primary Dx); Varicose veins of left lower extremity with inflammation; Tenosynovitis of finger 08/11/2025 Orders Only [address] [address] Krystyna Vaughn MD 08/11/2025 Travel 08/09/[address] [address] Humaira Bruno, RN hep C tx 08/07/2025 10:20 AM EDT Office Visit [facility] C[facility] [address] [place] [phone] Isamar Adams MD Acute bronchitis, unspecified organism (Primary Dx) 08/07/2025 Telephone [facility] [address] [address] Isamar Adams MD 08/07/2025 Travel 08/03/[address] [address] Alba So NP ER Follow-up 07/26/[address] [address] Humaira Bruno, NABEEL Hep C tx 07/25/[address] [address] Krystyna Vaughn MD DME L&C Compression stockings 07/25/[address] [address] Krystyna Vaughn MD RX Compresson stockings 07/24/[address] [address] Alba So NP Durable Medical Equipment 07/20/2025 Results Follow-Up [address] [address] Alba So NP XR Chest 2 Views 07/19/2025 10:00 AM EDT Office Visit [address] [address] Viviana Cruz FNP Hospital discharge follow-up (Primary Dx); Hemorrhage of varicose veins of lower extremity, bilateral; History of positive hepatitis C 07/19/2025 Orders Only [facility] External Provider, [facility] 07/19/2025 Travel 07/18/2025 9:20 AM EDT [facility] [address] [address] Nighat Galloway MD Hx pulmonary embolism (Primary Dx); Shortness of breath; Hx of heart failure 07/18/2025 Travel 07/17/[address] [address] Malika Garnett PharmD 07/15/2025 10:40 AM EDT Office Visit [address] [address] Krystyna Vaughn MD Venous stasis dermatitis of both lower extremities (Primary Dx); Bleeding from varicose veins of left lower extremity 07/15/2025 Travel 07/11/2025 Patient Outreach [address] [address] Alba So NP Pre-visit Planning (HDF- scheduled with the direct line and SDOH screening completed on 01/19/2025) 07/07/2025 Results Follow-Up [address] [address] Alba So NP CBC auto differential, Complete [...] Mass Index 31.17 09/25/2025 2:09 PM EST Plan of Treatment Health Maintenance Due Date Last Done Comments Lipid Panel 1990 Family Planning (PISQ) 2003 HPV Vaccines (1 - Male 3-dos e series) 2003 Hepatitis B Vaccines (1 of 3 - 19+ 3-dose series) 2007 Hepatitis A Vaccines (2 of 2 - Risk 2-dose series) 06/02/2018 12/03/2017 Pneumococcal Vaccine: Pediatrics (0 to 5 Years) and At-Risk Patients (6 to 49) Years (2 of 2 - PCV) 06/12/2018 06/12/2017, 04/06/2017 COVID-19 Vaccine ( - 2024-2 6 season) 2025 Influenza Vaccine (#1) 2025 , 07/27/2020 Alcohol/Substance Use Screening 10/18/2025 10/18/2024 SDOH Screening 01/19/2026 01/19/2025 Depression Monitoring 03/26/2026 09/25/2025 , 09/25/2025 Disability Screening 09/25/2026 09/25/2025 Tobacco Screening 09/25/2026 09/25/2025 DTaP/Tdap/Td Vaccines (2 - T d or Tdap) 12/14/2027 12/14/2017, 12/03/2017, 12/03/2017 Zoster Vaccines (1 of 2) 2038 RSV Patients and Patients Aged 60 years or older (1 - 1-dose 75+ series) 2063 HIV Screening Completed 09/18/2025, 04/08/2024 HIB Vaccines Aged Out No longer [...] Procedure Name Priority Date/Time Associated Diagnosis Comments HIV ANTIBODY/ANTIGEN ([place] DPH) Routine 09/18/2025 HEPATITIS C ANTIBODY (MA DPH) Routine 09/18/2025 SYPHILIS ABS (MA DPH) Routine 09/18/2025 CHLAMYDIA/GONORRHEA - URINE ([place] DPH) Routine 09/18/2025 CHLAMYDIA/GONORRHEA THROAT SWAB ([place] DPH) Routine 09/18/2025 DRUG MONITOR, PANEL 1, SCREEN, URINE Routine 09/13/2025 2:12 PM EST CTA CHEST PE PROTOCAL Routine 08/22/2025 2:21 PM EST COVID-19 ID NOW (CHEUNG) Routine 08/22/2025 1:43 PM EST INFLUENZA A [...] 07/18/2025 9:33 AM EDT Shortness of breath from Last 3 Months Results * Chlamydia/Gonorrhea Throat Swab ([place] DPH) (09/18/2025) Pathologist [facility] Chlamydia Throat Swab Negative Gonorrhea Throat Swab Negative Swab 09/18/2025 Result [facility] Provider MD LAB MICROBIOLOGY - GENERA L ORDERABLES Final Result * Chlamydia/Gonorrhea, Urine ([place] DP) (09/18/2025) Pathologist [facility] Chlamydia, Urine Negative Negative, Indeterminate, None Detected, Trace, 3+, Specimen unsatisfactory for evaluation, Weakly Positive, 1+, 2+ Gonorrhea, Urine Negative Negative, Indeterminate, None Detected, Trace, 3+, Specimen unsatisfactory for evaluation, Weakly Positive, 1+, 2+ Urine 09/18/2025 Result [facility] MD LAB URINE ORDERABLES Shruthi l Result * Syphilis Antibodies (DPH) (09/18/2025) [facility] Syphilis Abs Nonreactive Borderline, Nonreactive, Weakly Reactive, Inconclusive, Specimen unsatisfactory for evaluation Blood Venous blood specimen / Unknown 09/18/2025 Result [facility] Provider MD LAB BLOOD ORDERABLES Shruthi l Result * Hepatitis C Antibody ([place] DP) (09/18/2025) [facility] Hepatitis C Ab Reactive Comment:HCV RNA not detected Blood 09/18/2025 Result [facility] Provider MD LAB BLOOD ORDERABLES Shruthi l Result * HIV Ab/Ag ([place] DP) (09/18/2025) [facility] HIV Ag/Ab Nonreactive Blood 09/18/2025 Result [facility] Provider MD LAB BLOOD ORDERABLES Shruthi l Result * (ABNORMAL) Drug Monitoring, Panel 1, Screen, Urine (09/13/2025 2:12 PM EST) Only the most recent of2 resultswithin the time period is included. Pathologist [facility] Opiate Screen Urine Not Detected Not Detect [facility] Comment:Opiate cut-off is 30 0 ng/mL.Positive results are unconfirmed and should not be used fornon-medical purposes. Barbiturates, Urine Not Detected Not Detect [facility] Comment:Barbiturate cut-off is 200 ng/mL.Positive results are unconfirmed and should not be used fornon-medical purposes. Phencyclidine Screen Urine Not Detected Not Detect [facility] Comment:Phencyclidine cut-of f is 25 ng/mL.Positive results are unconfirmed and should not be used fornon-medical purposes. Amphetamine Screen Urine Not Detected Not Detect [facility] Comment:Amphetamine cut-off is 1000 ng/mL.Positive results are unconfirmed and should not be used fornon-medical purposes. Benzodiazepines Screen Urine Not Detected Not Detect [facility] Comment:Benzodiazepine cut-o ff is 200 ng/mL.Positive results are unconfirmed and should not be used fornon-medical purposes. Cocaine Screen Urine Not Detected Not Detect [facility] Comment:Cocaine cut-off is 3 00 ng/mL.Positive results are unconfirmed and should not be used fornon-medical purposes. Cannabinoid Screen Urine Not Detected Not Detect [facility] Comment:Cannabinoid cut-off is 50 ng/mL.Positive results are unconfirmed and should not be used fornon-medical purposes. Methadone Screen, Urine Positive(A) Not Detect ng/mL [facility] Comment:Methadone cut-off is 300 ng/mL.Positive results are unconfirmed and should not be used fornon-medical purposes. FENTANYL URINE Not Detected Not Detect [facility] Comment:Fentanyl cut-off is 1 ng/mL.Positive results are unconfirmed and should not be used fornon-medical purposes. Oxycodone Urine Screen Not Detected Not Detect ng/mL [facility] Comment:Oxycodone cut-off is 100 ng/mL.Positive results are unconfirmed and should not be used fornon-medical purposes. Buprenorphine Screen Not Detected Not Detect ng/mL [facility] Comment:Buprenorphine cut-of f is 5 ng/mL.Positive results are unconfirmed and should not be used fornon-medical purposes. 09/13/2025 2:12 PM EST 09/14/2025 8:39 AM EST us Generic External Data Provider LAB URINE ORDERAB LES Final Result [facility] [address] [place] [phone] * CTA Chest PE Protocal (08/22/2025 2:21 PM EST) Anatomical Region Laterality Modality Body, Chest Computed Tomogra phy 08/22/2025 2:21 PM EST Narrative 08/22/2025 3:10 PM EST [address] [address] [address] Scan Report Signed Patient: Norberto Marquez MR#: [id number] : 1990 Acct:[id number] Age/Sex: 34 / M ADM Date: 08/22/25 Loc: .ED Attending Dr: Ordering Physician: Norma Grant DO Date of Service: 08/22/25 Procedure(s): CT angio chest PE protocol Accession Number(s): [id number] cc: Norma Grant DO; [facility] Report Number: [id number]: Total DLP = 240.00 mGy-cm Reason for [...] by: Monica Richmond MD 08/22/2025 03:07 PM [facility] Dictated By: Monica Richmond MD Signed By: <Electronically signed by Monica Richmond MD in OV> 08/22/25 1507 DD/ 1421 TD/TT: 08/22/25 1439 Business Process Coordinator: MICHAEL Procedure Note Donotuseinterpreter, Image - 08/22/[address] [place] [address] [address] Scan Report Signed Patient: Zully Marquez#: [id number] : 1990Acct:[id number] Age/Sex: 34 / MADM Date: 08/22/25 Loc: .ED Attending Dr: Ordering Physician: Norma Grant DO Date of Service: 08/22/25 Procedure(s): CT angio chest PE protocol Accession Number(s): [id number] cc: Norma Grant DO; [facility] Report Number: [id number]: Total DLP = 240.00 mGy-cm Reason for [...] 08/22/25 1507 DD/ 1421 TD/TT: 08/22/25 1439 Business Process Coordinator: MICHAEL [facility] External Provider IMG CT PROCEDURES Final Result * Influenza A B2 ID NOW (Cheung) (08/22/2025 1:43 PM EST) Only the most recent of2 resultswithin the time period is included. IDNOW SERIAL# [id number] [facility] Influenza A Negative Negative [facility] Influenza B2 Negative Negative [facility] Influenza A B2 Note See Note [facility] Comment:The Cheung ID NOW In [...] LAB MICROBIOLOGY - GENERAL ORDERABLES Final Result [facility] [address] [place] [phone] * COVID-19 ID NOW (CHEUNG) (08/22/2025 1:43 PM EST) Only the most recent of2 resultswithin the time period is included. IDNOW SERIAL# [id number] [facility] COVID-19 TEST Negative Negative [facility] COVID-19 NOTE See Note [facility] Comment: Results are for the identification of SARS-CoV2 RNA. TheSARS-CoV2 RNA is generally detectable in respiratory samplesduring the acute phase of infection. Positive results areindicative of the presence of SARS-CoV-2 RNA; clinicalcorrelation with patient history and other diagnosticinformation is necessary to determine patient infectionstatus. Positive results do not rule out bacterial infectionor co- infection with other viruses.Testing facilities within the [facility] and itsterritories are required to [...] use by authorized laboratories.Testing performed on the [employer] NOW utilizing NAAT. 08/22/2025 1:43 PM EST 08/22/2025 1:54 PM EST Generic External Data Provider LAB MOLECULAR [place] [facility] ORDERABLES Final Result Performing Organization Address [facility] Co de Phone Number [facility] [address] [place] [phone] * Blood Culture (First) (08/22/2025 1:42 PM EST) Blood Venous blood specimen / Unknown 08/22/2025 1:42 PM EST 08/22/2025 1:53 PM EST Comment:Blood [facility] - 08/27/2025 3:53 PM EST Blood Culture (First) No growth after 5 days. Specimen Source: Blood [employer] External Data Provider LAB MICROBIOLOGY - GENERAL ORDERABLES Final Result Performing Organization Address [facility] Co de Phone Number [facility] [address] [place] [phone] * Blood Culture (Second) (08/22/2025 1:42 PM EST) Blood Venous blood specimen / Unknown 08/22/2025 1:42 PM EST 08/22/2025 1:57 PM EST Comment:Blood [facility] - 08/27/2025 3:57 PM EST Blood Culture (Second) No growth after 5 days. Specimen Source: Blood Generic External Data Provider LAB MICROBIOLOGY - GENERAL ORDERABLES Final Result Performing Organization Address [facility]/ZIP Co de Phone Number [facility] [address] [place], [place] [phone] * (ABNORMAL) Complete Blood Count Manual Diff (08/22/2025 1:42 PM EST) White Blood Count 10.5 4.8 - 10.8 X10*3/uL [facility] Red Blood Count 5.28 4.60 - 5.80 X10*6/uL [facility] Hemoglobin 13.1(L) 14.0 - 18.0 g/dl [facility] Hematocrit 42.2 42.0 - 52.0 % [facility] Mean Corpuscular Volume 79.9(L) 80.0 - 98.0 fL [facility] Mean Corpuscular Hemoglobin 24.8(L) 27.0 - 33.0 pg [facility] Mean Corpuscular HGB Conc 31.0 31.0 - 36.0 g/dl [facility] Red Cell Distribution Width 22.8(H) 11.0 - 16.0 % [facility] Platelet Count 202 160 - 400 X10*3/uL [facility] Mean Platelet Volume 9.2(L) 9.4 - 12.4 fL [facility] NRBC Pct Auto 0.0 0.0 - 0.2 /100WBC [facility] NRBC Abs Auto 0.000 0.0 - 0.012 X10*3/uL [facility] Neutrophils % Manual 73 45 - 73 % [facility] Band Neutrophils Percent 5 3 - 5 % [facility] Lymphocytes Percent Manual 11(L) 20 - 40 % [facility] Atypical Lymphs Percent Manual 3 0 - 6 % [facility] Monocytes Percent Manual 4 2 - 11 % [facility] EOSINOPHILS % MANUAL 2 0 - 4 % [facility] Metamyelocytes % (Manual) 2 % [facility] NEUTROPHILS ABSOLUTE MANUAL 8.2 2.0 - 8.3 X10*3/uL [facility] LYMPHOCYTES ABSOLUTE MANUAL 1.2 1.2 - 4.9 X10*3/uL [facility] Atypical Lymph Absolute Manual 0.3 x10*3/uL [facility] MONOCYTES ABSOLUTE MANUAL 0.4 0.1 - 1.2 X10*3/uL [facility] EOSINOPHILS ABSOLUTE MANUAL 0.2 0.0 - 0.4 X10*3/uL [facility] Absolute Metamyelocytes 0.2 X10*3/uL [facility] Platelet Estimate NORMAL NORMAL [facility] Large Platelet [facility] Platelet Morphology Comment NOTED [facility] RBC Morphology NOTED [facility] Ovalocytes 1+ (5-14) /OIF [facility] 08/22/2025 1:42 PM EST 08/22/2025 1:53 PM EST us Generic External Data Provider LAB BLOOD ORDERAB LES Final Result [facility] [address] [place] [phone] * (ABNORMAL) CBC auto differential (08/22/2025 1:42 PM EST) Only the most recent of3 resultswithin the time period is included. White Blood Count 10.5 4.8 - 10.8 X10*3/uL [facility] Red Blood Count 5.28 4.60 - 5.80 X10*6/uL [facility] Hemoglobin 13.1(L) 14.0 - 18.0 g/dl [facility] Hematocrit 42.2 42.0 - 52.0 % [facility] Mean Corpuscular Volume 79.9(L) 80.0 - 98.0 fL [facility] Mean Corpuscular Hemoglobin 24.8(L) 27.0 - 33.0 pg [facility] Mean Corpuscular HGB Conc 31.0 31.0 - 36.0 g/dl [facility] Red Cell Distribution Width 22.8(H) 11.0 - 16.0 % [facility] Platelet Count 202 160 - 400 X10*3/uL [facility] Mean Platelet Volume 9.2(L) 9.4 - 12.4 fL [facility] Neutrophils Percent Auto 68.9 45 - 73 % [facility] Imm Gran Pct Auto 6.5(H) 0.0 - 0.4 % [facility] Lymphocytes Percent Auto 16.6(L) 20 - 40 % [facility] Monocytes Percent Auto 5.5 2 - 11 % [facility] Eosinophils Percent Auto 1.6 0 - 4 % [facility] Basophils Percent Auto 0.9 0 - 2 % [facility] NRBC Pct Auto 0.0 0.0 - 0.2 /100WBC [facility] Neutrophils Absolute Auto 7.3 2.0 - 8.3 x10*3/uL [facility] Imm Gran Abs Auto 0.68(H) 0.00 - 0.03 X10*3/uL [facility] Lymphocytes Absolute Auto 1.8 1.2 - 4.9 X10*3/uL [facility] Monocytes Absolute Auto 0.6 0.1 - 1.2 X10*3/uL [facility] Eosinophils Absolute Auto 0.2 0.0 - 0.4 X10*3/uL [facility] Basophils Absolute Auto 0.1 0.0 - 0.2 X10*3/uL [facility] NRBC Abs Auto 0.000 0.0 - 0.012 X10*3/uL [facility] 08/22/2025 1:42 PM EST 08/22/2025 1:53 PM EST us Generic External Data Provider LAB BLOOD ORDERAB LES Edited Result - Final [facility] [address] [place] [phone] * Lactic Acid (08/22/2025 1:42 PM EST) Lactic Acid 1.5 0.5 - 2.0 mmol/L [facility] 08/22/2025 1:42 PM EST 08/22/2025 1:53 PM EST us Generic External Data Provider LAB BLOOD ORDERAB LES Final Result [facility] [address] [place] [phone] * (ABNORMAL) Comprehensive Metabolic Panel (08/22/2025 1:42 PM EST) Sodium 140 135 - 145 mmol/L [facility] Potassium 4.5 3.3 - 5.1 mmol/L [facility] Chloride 107 96 - 108 mmol/L [facility] Carbon Dioxide 25 22 - 29 mmol/L [facility] Anion Gap 13 12 - 20 [facility] Urea Nitrogen (BUN) 29(H) 9 - 16 mg/dL [facility] Creatinine, Serum 0.96 0.5 - 1.4 mg/dL [facility] Creatinine Clr Calc Pharmacy 114.9 [facility] Comment:eGFR (calculated fro m the MDRD study equation) and eCrCl(calculated from the Cockcroft-Gault equation) are based ondifferent parameters and may not yield comparable results.If eCrCl result is absurd, please check patient'sheight/weight. Estimated Glomerular Filt Rate >60 [facility] Comment:Chronic Kidney Disea se: Estimated GFR < 60 mL/min/1.95y9Gnodwk Kidney Disease: Estimated GFR < 15 mL/min/1.73m2 Glucose 136(H) 60 - 115 mg/dL [facility] Calcium 9.4 8.4 - 10.2 mg/dL [facility] Bilirubin, Total 0.7 0.0 - 1.0 mg/dL [facility] Aspartate Amino Transferase 42(H) 5 - 37 U/L [facility] Alanine Aminotransferase 60(H) 0 - 40 U/L [facility] Total Protein 7.8 6.5 - 8.0 g/dL [facility] Albumin Level 4.1 3.5 - 5.0 g/dL [facility] Alkaline Phosphatase 212(H) 39 - 117 U/L [facility] 08/22/2025 1:42 PM EST 08/22/2025 1:53 PM EST us Generic External Data Provider LAB BLOOD ORDERAB LES Final Result Performing Organization Address [facility] de Phone Number [facility] [address] [place] [phone] * Slide Review (08/11/2025 3:17 PM EDT) Only the most recent of2 resultswithin the time period is included. Slide Review VERIFIED [facility] 08/11/2025 3:17 PM EDT 08/11/2025 4:07 PM EDT us Krystyna Vaughn MD LAB BLOOD ORDERABLES Fin al Result Performing Organization Address [facility] de Phone Number [facility] [address] [place] [phone] * (ABNORMAL) Hepatitis Panel, General (08/11/2025 3:17 PM EDT) Hepatitis A IgM Nonreactive Nonreactive [facility] Comment:IgM antibodies to DARDEN V not detected; does not exclude earlyacute or recovered HAV infection. ~Hepatitis B Surface Antibody REACTIVE Nonreactive [facility] Comment:REACTIVE: > 11.99 mI U/mL Hepatitis B Core Antibody Nonreactive Nonreactive [facility] Hepatitis C Antibody Reactive(A) Nonreactive [facility] Comment:Presumptive evidence of antibodies to HCV. Hepatitis B Surface Ag Negative Negative [facility] Blood 08/11/2025 3:17 PM EDT 08/11/2025 6:18 PM EDT Krystyna Vaughn MD LAB BLOOD ORDERABLES Fin al Result Performing Organization Address [facility] Co de Phone Number [facility] [address] [place] [address] [place] [phone] * Sed Rate by Modified Westergren (08/11/2025 3:17 PM EDT) Erythrocyte Sedimentation Rate 9 0 - 15 MM/HR [facility] Comment:Patients with polycy themia and many hemoglobin abnormalitiesmay have depressed sed rates whereas patients with anemiamay have elevated sed rates. Blood Venous blood specimen / Unknown 08/11/2025 3:17 PM EDT 08/11/2025 4:07 PM EDT Krystyna Vaughn MD LAB BLOOD ORDERABLES Fin al Result Performing Organization Address [facility]/ZIP Co de Phone Number [facility] [address] [place] [phone] * Rheumatoid Factor (08/11/2025 3:17 PM EDT) [facility] Rheumatoid Factor <13.0 <15.0 IU/mL [facility] Blood Venous blood specimen / Unknown 08/11/2025 3:17 PM EDT 08/11/2025 6:18 PM EDT Krystyna Vaughn MD LAB BLOOD ORDERABLES Fin al Result Performing Organization Address [facility]/ZIP Co de Phone Number [facility] [address] [place] [phone] * (ABNORMAL) C-reactive Protein (08/11/2025 3:17 PM EDT) C Reactive Protein 6.24(H) < or = 0.50 mg/dL [facility] Blood Venous blood specimen / Unknown 08/11/2025 3:17 PM EDT 08/11/2025 6:18 PM EDT Krystyna Vaughn MD LAB BLOOD ORDERABLES Fin al Result Performing Organization Address City/[facility]/ZIP Co de Phone Number [facility] [address] [place] [phone] * KRYSTYNA Screen,IFA, with Reflex to Titer and Pattern (08/11/2025 3:17 PM EDT) Anti Nuclear Antibody Screen NEGATIVE NEGATIVE [facility] Comment:KRYSTYNA IFA is a first [...] clinicallysuspected inflammatory myopathies.AC-0: NegativeInternational Consensus on KRYSTYNA Patterns(https://doi.org/10.1515/ievi-9138-0817)For additional information, please refer tohttp://education.depict/faq/ELY795(This link is being provided for informational/educational purposes only.)THIS TEST WAS PERFORMED AT:[employer] [place] [phone] DAVIS MD KRYSTYNA Titer TNP [facility] KRYSTYNA Pattern TNP [facility] KRYSTYNA Titer 2 [facility] KRYSTYNA Pattern 2 [facility] KRYSTYNA TITER 3 [facility] KRYSTYNA PATTERN 3 [facility] Blood Venous blood specimen / Unknown 08/11/2025 3:17 PM EDT 08/11/2025 6:18 PM EDT us Krystyna Vaughn MD LAB BLOOD ORDERABLES Fin al Result [facility] [address] [place] [phone] * (ABNORMAL) Uric acid (08/11/2025 3:17 PM EDT) Uric Acid 9.2(H) 3.4 - 7.0 mg/dL [facility] Blood Venous blood specimen / Unknown 08/11/2025 3:17 PM EDT 08/11/2025 6:18 PM EDT us Krystyna Vaughn MD LAB BLOOD ORDERABLES Fin al Result [facility] [address] [place] [phone] * XR Fingers 2+ Views Left (08/11/2025 2:58 PM EDT) Anatomical Region Laterality Modality Upper Extremities, Fingers Left [facility] 08/11/2025 2:58 PM EDT Narrative 08/11/2025 3:06 PM EDT [address] [address] XRay Report Signed Patient: Norberto Marquez MR#: [id number] : 1990 Acct:[id number] Age/Sex: 34 / M ADM Date: 08/11/25 Loc: HO.HHCX Attending Dr: Krystyna Vaughn MD Ordering Physician: Krystyna Vaughn MD Date of Service: 08/11/25 Procedure(s): XR finger LT min 2V Accession Number(s): [id number] cc: Krystyna Vaughn MD Reason for Exam: [...] 08/11/25 1503 DD/ 1458 TD/TT: 08/11/25 1448 Business Process Coordinator: MICHAEL Procedure Note Donotuseinterpreter, Image - 08/11/[address] [address] XRay Report Signed Patient: Zully Marquez#: [id number] : 1990Acct:[id number] Age/Sex: 34 / MADM Date: 08/11/25 Loc: HO.HHCX Attending Dr: Krystyna Vaughn MD Ordering Physician: Krystyna Vaughn MD Date of Service: 08/11/25 Procedure(s): XR finger LT min 2V Accession Number(s): [id number] cc: Krystyna Vaughn MD Reason for Exam: [...] 08/11/25 1503 DD/ 1458 TD/TT: 08/11/25 1448 Business Process Coordinator: MICHAEL Krystyna Vaughn MD IMG XR PROCEDURES [...] TEST ENTER/EDIT OR DERABLES Final Result * XR Chest 2 Views (07/19/2025 6:24 PM EDT) Anatomical Region Laterality Modality Chest Radiographic Ladan ging 07/19/2025 6:24 PM EDT Narrative 07/19/2025 6:26 PM EDT [address] [address] XRay Report Signed Patient: Norberto Marquez MR#: [id number] : 1990 Acct:[id number] Age/Sex: 34 / M ADM Date: 07/19/25 Loc: .ED Attending Dr: Ordering Physician: Alana Carreon Date of Service: 07/19/25 Procedure(s): XR chest 2V Accession Number(s): [id number] cc: [facility]; Alana Carreon Reason for Exam: SOB CLINICAL HISTORY: SOB 2 view chest x-ray Comparison: 01/24/2025 Findings: The lungs are clear. Heart size is normal. No acute fracture. IMPRESSION: 1. No acute findings. This document has been electronically signed by: Cloin Reyes MD on 07/19/2025 18:24:34 Dictated By: Colin Reyes MD Signed By: <Electronically signed by Colin Reyes MD in OV> 07/19/251824 DD/ 23 TD/TT: 07/19/251823 Business Process Coordinator: Procedure Note Donotuseinterpreter, Image - 07/19/2025 [place] [address] XRay Report Signed Patient: Zully Marquez#: [id number] : 1990Acct:[id number] Age/Sex: 34 / MADM Date: 07/19/25 Loc: .ED Attending Dr: Ordering Physician: Alana Carreon Date of Service: 07/19/25 Procedure(s): XR chest 2V Accession Number(s): [id number] cc: [facility]; Alana Carreon Reason for Exam: SOB CLINICAL [...] OV> 07/19/251824 DD/ 23 TD/TT: 07/19/251823 Business Process Coordinator: [facility] External Provider IMG XR PROCEDURES Final Result * High Sensitivity Troponin I (07/19/2025 6:22 PM EDT) TROPONIN I HIGH SENSITIVITY 3.3 <3.5 - 35.0 ng/L [facility] Comment:The Cheung high sens itivity Troponin-I results should beused in conjunction with other diagnostic information suchas ECG, clinical observations and information, and patientsymptoms to aid in the diagnosis of UT. 07/19/2025 6:22 PM EDT 07/19/2025 6:27 PM EDT Generic External Data Provider LAB BLOOD ORDERAB LES Final Result Performing Organization Address City/[facility]/ZIP Co de Phone Number [facility] [address] [place] [phone] * Ethanol (07/19/2025 6:22 PM EDT) ETHANOL (MG/DL) IN SER/PLAS <10 mg/dL [facility] Comment:Serum/plasma ethanol results are to be used formedical/treatment purposes only. 07/19/2025 6:22 PM EDT 07/19/2025 6:27 PM EDT Generic External Data Provider LAB BLOOD ORDERAB LES Final Result Performing Organization Address [facility] Co de Phone Number [facility] [address] [place] [phone] * NT-proBNP (07/19/2025 6:22 PM EDT) NT-proBNP 251.0 <300 pg/mL [facility] Comment:Reference Range:Age Group (years) NT-proBNP (pg/ml) InterpretationAll <300 Negative: HF unlikelyFor patients presenting to the ED with clinical suspicion ofnew onset or worsening HF, see below:18 to <50 >299.9 to <450.0 Grayzone: [id number] to 75 >299.9 to <900.0 other causes of>75 >299.9 to <1800.0 NT-proBNP [id number] to <50 >449.9 Positive: HF [id number] >899.9>75 >1799.9Note: Elevated NT-proBNP levels should be interpreted inthe context of other clinical information. 07/19/2025 6:22 PM EDT 07/19/2025 6:27 PM EDT Generic External Data Provider LAB BLOOD ORDERAB LES Final Result Performing Organization Address [facility] Phone Number [facility] [address] [place] [phone] * Magnesium (07/19/2025 6:22 PM EDT) Magnesium 1.6 1.6 - 2.6 mg/dL [facility] 07/19/2025 6:22 PM EDT 07/19/2025 6:27 PM EDT Generic External Data Provider LAB BLOOD ORDERAB LES Final Result Performing Organization Address [facility] Phone Number [facility] [address] [place] [phone] * (ABNORMAL) Ammonia, Plasma (07/19/2025 6:22 PM EDT) Ammonia (P) 59(H) 13 - 55 umol/L [facility] 07/19/2025 6:22 PM EDT 07/19/2025 6:27 PM EDT Generic External Data Provider LAB BLOOD ORDERAB LES Final Result Performing Organization Address [facility] de Phone Number [facility] [address] [place] [phone] * (ABNORMAL) Hepatic Function Panel (07/19/2025 6:22 PM EDT) Bilirubin, Total 0.9 0.0 - 1.0 mg/dL [facility] Bilirubin, Direct 0.5 0.0 - 0.5 mg/dL [facility] Aspartate Amino Transferase 94(H) 5 - 37 U/L [facility] Alanine Aminotransferase 81(H) 0 - 40 U/L [facility] Total Protein 7.1 6.5 - 8.0 g/dL [facility] Albumin Level 4.0 3.5 - 5.0 g/dL [facility] Alkaline Phosphatase 273(H) 39 - 117 U/L [facility] 07/19/2025 6:22 PM EDT 07/19/2025 6:27 PM EDT us Generic External Data Provider LAB BLOOD ORDERAB LES Final Result [facility] [address] [place] [phone] * (ABNORMAL) Basic Metabolic Panel (07/19/2025 6:22 PM EDT) Sodium 138 135 - 145 mmol/L [facility] Potassium 4.5 3.3 - 5.1 mmol/L [facility] Chloride 109(H) 96 - 108 mmol/L [facility] Carbon Dioxide 21(L) 22 - 29 mmol/L [facility] Anion Gap 13 12 - 20 [facility] Urea Nitrogen (BUN) 21(H) 9 - 16 mg/dL [facility] Creatinine, Serum 0.79 0.5 - 1.4 mg/dL [facility] Creatinine Clr Calc Pharmacy 126.2 [facility] Comment:eGFR (calculated fro m the MDRD study equation) and eCrCl(calculated from the Cockcroft-Gault equation) are based ondifferent parameters and may not yield comparable results.If eCrCl result is absurd, please check patient'sheight/weight. Estimated Glomerular Filt Rate >60 [facility] Comment:Chronic Kidney Disea se: Estimated GFR < 60 mL/min/1.22z7Topvzt Kidney Disease: Estimated GFR < 15 mL/min/1.73m2 Glucose 98 60 - 115 mg/dL [facility] Calcium 9.6 8.4 - 10.2 mg/dL [facility] 07/19/2025 6:22 PM EDT 07/19/2025 6:27 PM EDT us Generic External Data Provider LAB BLOOD ORDERAB LES Final Result Performing Organization Address [facility]/ZIP Co de Phone Number [facility] [address] [place] [phone] * Influenza B (ID NOW Rapid Molecular) (07/18/2025 12:57 PM EDT) Influenza B Negative Negative, Indeterminate [facility] Swab 07/18/2025 12:5 7 PM EDT Nighat Galloway MD POINT OF CARE TEST ENTER/E DIT ORDERABLES Final Result Performing Organization Address [facility] Co de Phone Number [facility] [address] [place] [phone] * Influenza A (ID NOW Rapid Molecular) (07/18/2025 12:57 PM EDT) Influenza A Negative Negative, Indeterminate [facility] Swab 07/18/2025 12:5 7 PM EDT Nighat Galloway MD POINT OF CARE TEST ENTER/E DIT ORDERABLES Final Result Performing Organization Address [facility] Co de Phone Number [facility] [address] [place] [phone] from Last 3 Months Insurance [facility] Care Teams [place] Compounder Relationship Specialty Start Date End Date Alba So NP [address] [place] [phone] PCP - General Family Medicine 04/14/24
[2025-09-26 04:35] LABS: HIV Num 1 0.05 S/CO (0.00-0.99)
[2025-09-27 19:54] LABS: HCV Log PCR 5.05 Log IU/mL (NOT DETECTED); HepC Viral Load 112000 IU/mL (NOT DETECTED)
--- NOTE | 2025-09-29 11:30 | PTCAREPLN_ITS ---
Patient Care Plan Patient Care Plan Details: [facility] EMERGENCY [facility]PART[facility] CARE PLAN Norberto Marquez 1990 Patient presentation: Norberto has a multitude of presentations and is very high risk due to noncompliance and active IVDA. He generally presents under the influence and has actively used prior to arrival. Please be aware this might mask a medical condition. He has joint terminal attack controller untreated recurrent MSSA bacteremia and endocarditis. He has hx of clots and is generally not compliant with his DOAC. Norberto is unwell at baseline and his active polysubstance abuse can make it difficult to assess. 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 He presented with cough and mild hemoptysis. He was discharged on doxycycline and prednisone. He was referred to outpatient detox. ED interventions: Appropriately assess even if under the influence. Please make sure you check legs for cellulitis, bedside ECHO for any effusion/large vegetation. Ask about compliance with eliquis. He generally needs labs as well as cultures and obtain CXR has he has frequent history of pneumonia. He generally is admitted due to non compliance and recurrent pathology from active IVDA. Have low threshold to admit to hospital. Follow up: ? Norberto has seen pulmonology, vascular, infectious disease, addiction medicine, gastroenterology, vascular. He generally uses the Emergency Department when sick. He has poor self-directed outpatient follow up due to lack of transportation and ongoing IVDA.
== END 2025-09-25 14:49 | disposition home or self-care (01) ==
LOC: HO.HHCL 14:48
PROVIDERS: PCP Nurse Practitioner; Visit Provider Nurse Practitioner
DX: B18.2 Chronic viral hepatitis C (principal); Z11.4 Encounter for screening for human immunodeficiency virus [HIV]
CPT/HCPCS: 36415; 80053; 81596; 83735; 85025; 85610; 87389; 87522; 87902